=== PATIENT | female | born 1965 | race Caucasian/White ===

== ENCOUNTER → 2018-04-05 13:24 | Outpatient (CLI) | payer MEDICARE, MEDICAID, SELFPAY ==
--- NOTE | 2018-04-05 13:45 | MRI_ITS ---
STUDY: MRI BRAIN AND INTERNAL AUDITORY CANALS WITH AND WITHOUT CONTRAST REASON FOR EXAM: Female, 53 years old. 7 right sided ear deafness and is beginning of January. TECHNIQUE: Standardized multiplanar fat and water weighted pulse sequences were obtained. 7 ml of Gadavist contrast material was administered intravenously for the contrast portion of the examination. COMPARISON: None. FINDINGS: Normal bilateral temporal bones. Normal bilateral internal auditory canals. There is no demonstrated intracanalicular or cisternal vestibular schwannoma (acoustic neuroma). There is no enhancement of the bilateral VIIth or VIIIth cranial nerves. Normal bilateral cochlea, vestibules and semicircular canals. There is mild cerebral atrophy with widening of the extra-axial spaces and ventricular dilatation. There are a limited number of small white matter hyperintensities, distributed throughout the deep white matter tracts of the cerebral hemispheres, consistent with mild chronic white matter ischemic changes. There are apparent areas of restricted diffusion in the temporal lobes. This is likely artifactual rather than related to acute infarct. Normal bilateral basal ganglia. Normal thalami. There is no extra-axial fluid accumulation. Normal flow voids within the major intracranial circulation suggesting patency by spin echo criteria. Normal venous enhancement. There is no enhancing intra-axial or extra-axial abnormality. Normal sella turcica, pituitary gland, infundibular stalk, optic chiasm and hypothalamus. Normal tectal plate and pineal gland. There are chronic white matter ischemic changes of the jhonny. The midbrain and medulla are otherwise normal. Normal cerebellum. Normal basal cisterns. No demonstrated orbital abnormality, within the constraints of a routine brain study. Normal visualized paranasal sinuses. Normal calvarium and skull base. Normal visualized soft tissue structures. There are mild multilevel degenerative changes of the cervical spine. MRI/Brain W/WO Contrast IMPRESSION: 1. Involutional changes of the brain, as described above. 2. No MR evidence for cerebellopontine angle or internal auditory canal mass. Electronically Signed: Jennifer Thomson MD at 12:03 EDT , Service support ,
== END ==
PROVIDERS: Family Provider Internal Medicine; PCP Internal Medicine; Visit Provider Otolaryngology
DX: H91.21 Sudden idiopathic hearing loss, right ear (principal)
CPT/HCPCS: 70553; A9585

== ENCOUNTER → 2018-08-21 13:32 | Outpatient (CLI) | payer MEDICARE, MEDICAID, SELFPAY ==
[2018-08-14 14:21] VITALS: BMI 28.0
--- NOTE | 2018-08-21 13:35 | VDUE_ITS ---
Reason For Study: pre op Right Arm Left Arm Right cephalic vein is compressible. Left basilic vein is compressible. Right Cephalic Vein at the shoulder Basilic vein at origin measures .204 x .224 measures .125 x .117 cm. cm. Right Cephalic Vein mid bicep measures .113 Basilic vein at bicep measures .239 x .229 x .108 cm. cm. Right Cephalic Vein above antecub Basilic vein below antecub measures .190 measures .116 x .125 cm. x .189 cm. Right Cephalic Vein below antecub Basilic vein in the forearm measures .239 measures .187 x .191 cm. x .224 cm. Right Cephalic Vein in the forearm Basilic vein at the wrist measures .124 measures .208 x .208 cm. x .115 cm. Right Cephalic Vein at the wrist Brachial Artery measures .298 x .318 cm measures .104 x .092 cm. Brachial Artery 230/91.3 cm/s Right basilic vein is compressible. Radial Artery measures .313 x .305 cm Right Basilic Vein at the origin Radial Artery 282/141 cm/s measures .154 x .15 cm. Radial measurements taken at mid/distal Right Basilic Vein above antecub forearm. measures .149 x .134 cm. Right Basilic Vein below antecub measures .124 x .114 cm. Right Basilic Vein in the forearm measures .124 x .131 cm. Right Basilic Vein at the wrist measures .080 x .065 cm. Brachial Artery measures .328 x .341 cm. Brachial Artery 92.3 cm/s. Radial Artery measures .137 x .118 cm Radial Artery 103 cm/s. Interpretation Summary Diminutive right upper extremity cephalic and basilic veins Very borderline small left upper arm basilic vein. Diminutive right upper arm basilic vein. Adequate bilateral brachial arteries. Ordering Physician: Ruben Hu Performed By: Joseph Almonte, RVT ?
--- NOTE | 2018-08-21 13:35 | AVDS_ITS ---
Reason For Study: mechanical complication LEFT Radial artery at the wrist is diminutive in size with bright echoes noted. Inflow 135/60.2 cm/s Inflow 97.9 cc/min Prox Anast 477/221 cm/s Prox anast 410 cc/min Prox Graft 254/102 cm/s Prox Graft 364 cc/min Mid Graft 138/64.4 cm/s Mid Graft 570 cc/min Distal Graft at antecibital space 93.0/41.9 cm/s Distal Graft at antecubital space 447 cc/min Cephalic V in the upper are is diminutive in size with minimal flow. Fistula appears to connect to the brachial V. Brachial V 124/72.7 cm/s Brachial V 516 cc/min. Interpretation Summary Poor volume flow inflow left radial artery Low volume flow proximal fistula 364cm/sec Adequate mid graft flow 570 cc/min Diminutive left upper arm cephalic vein Outflow in the upper arm seeminly via the brachial vein Ordering Physician: Ruben Hu Performed By: Joseph Almonte, RVT
--- OUTSIDE RECORDS SUMMARY | 2018-11-23 00:39 | XMS RPT_ITS ---
:1965 Author Organization OHIP Support Name Relationship Address Phone D Unavailable Unavailable Unavailable LAWRENCE DANTE Unavailable [address] + [place] [address] D Unavailable Unavailable Unavailable LAWRENCEBOLIVAR MINORALD Unavailable [address] + [place] [address] D Unavailable Unavailable Unavailable LAWRENCE DANTE Unavailable [address] + [place] [address] D Unavailable Unavailable Unavailable LAWRENCE, DANTE Unavailable [address] + [place] [address] D Unavailable Unavailable Unavailable LAWRENCE, DANTE Unavailable [address] + [place] [address] BOLIVAR BRAVOALD Unavailable [address] + [id number] [place] [address] UE Unavailable Unavailable Unavailable REN BRAVOE Unavailable [address] + [place] [address] EUGENE BRAVO Unavailable [address] + [address] [place] [address] BOLIVAR BRAVOALD Unavailable [address] [place] [address] NOT GIVEN Unavailable Unavailable Unavailable EUGENE BRAVO Unavailable [address] + [address] [place] [address] BOLIVAR BRAVOALD Unavailable [address] [place] [place] [address] NOT GIVEN Unavailable Unavailable Unavailable REN BRAVOE Unavailable [address] + [place] [address] JULIENNE BRAVO Unavailable [address] + [place] [address] EUGENE BRAVO Unavailable [address] + [address] [place] [address] DANTE BRAVO Unavailable [address] [place] [place] [address] NOT GIVEN Unavailable Unavailable Unavailable REN BRAVOE Unavailable [address] + [place] [address] DANTE BRAVO Unavailable [address] + [place] [address] UE Unavailable Unavailable Unavailable REN BRAVOE Unavailable [address] + [place] [address] REN BRAVOE Unavailable [address] + [place] [address] LAWRENCE EUGENE Unavailable [address] + [address] [place] [address] DANTE BRAVO Unavailable [address] [place] [place] [address] NOT GIVEN Unavailable Unavailable Unavailable LAWRENCE EUGENE Unavailable [address] + [address] [place] [address] DANTE BRAVO Unavailable [address] [place] [place] [address] NOT GIVEN Unavailable Unavailable Unavailable DANTE BRAVO Unavailable [address] + [place] [address] LAWRENCE, [place] Unavailable Unavailable + DANTE BRAVO Unavailable [address] + [place] [address] LAWRENCE, [place] Unavailable Unavailable + JULIENNE BRAVO Unavailable [address] + [place] [address] REN BRAVOE Unavailable [address] + [place] [address] BOLIVAR BRAVOALD Unavailable [address] + [place] [address] LAWRENCEBOLIVAR MINORALD Unavailable [address] + [place] [address] REN BRAVOE Unavailable [address] + [place] [address] Care Team Providers Name Role Phone IRENE, HÉCTOR Ramey Attending Unavailable PASQUALE VILLANUEVA, ROE Attending Unavailable PHYSICIAN, NONE Primary Care Unavailable BROOKS RICO DO Consulting Unavailable PASQUALE VILLANUEVA, ROE Attending Unavailable PHYSICIAN, NONE Primary Care Unavailable ROE GIORDANO MD Attending Unavailable Lane Kirby Attending Unavailable Lane Kirby Referring Unavailable Denny, Maldonado Primary Care Unavailable Cebul, Ruben Attending Unavailable Denny, Maldonado Referring Unavailable Cebul, Ruben Attending Unavailable Cebul, Ruben Referring Unavailable Denny, Maldonado Primary Care Unavailable Cebul, Ruben Attending Unavailable Cebul, Ruben Referring Unavailable Denny, Maldonado Primary Care Unavailable Cebul, Ruben Consulting Unavailable Cebul, Ruben Attending Unavailable Denny, Maldonado Referring Unavailable Cebul, Ruben Attending Unavailable Cebul, Ruben Referring Unavailable Denny, Maldonado Primary Care Unavailable Cebul, Ruben Attending Unavailable Cebul, Ruben Referring Unavailable Denny, Maldonado Primary Care Unavailable Cebul, Ruben Consulting Unavailable OLDER, IFEOMA (CONE WORKER) Referring Unavailable DENNY, SHARRON Attending Unavailable DENNY, SHARRON Attending Unavailable DENNY, SHARRON Attending Unavailable DENNY, SHARRON Referring Unavailable OLDER, IFEOMA (CONE WORKER) Referring Unavailable DENNY, SHARRON Referring Unavailable DENNY, SHARRON Attending Unavailable OLDER, IFEOMA ([facility]) Attending Unavailable DENNY, SHARRON Referring Unavailable OLDER, IFEOMA ([facility]) Attending Unavailable PASQUALE, MANAL H Referring Unavailable JAKOB SAMUEL MD Admitting Unavailable JAKOB SAMUEL MD Attending Unavailable JAKOB SAMUEL MD Primary Care Unavailable DENNY, SHARRON Consulting Unavailable PROVIDER, UNKNOWN Consulting Unavailable YOMAIRA MULLINS Admitting Unavailable YOMAIRA MULLINS Attending Unavailable YOMAIRA MULLINS Primary Care Unavailable DENNY, SHARRON Consulting Unavailable PROVIDER, UNKNOWN Consulting Unavailable ARTIE DOUGLAS Admitting Unavailable ARTIE DOUGLAS Attending Unavailable ARTIE DOUGLAS Primary Care Unavailable DENNY, SHARRON Consulting Unavailable DENNY, SHARRON Referring Unavailable PROVIDER, UNKNOWN Consulting Unavailable KADE DE LA TORRE DO Admitting Unavailable KADE DE LA TORRE DO Attending Unavailable DENNY, SHARRON Referring Unavailable KADE DE LA TORRE DO Primary Care Unavailable EDUIN, SHARRON Consulting Unavailable PROVIDER, UNKNOWN Consulting Unavailable ELIGIO, DR TONI Curry Admitting Unavailable ELIGIO, DR TONI Curry Attending Unavailable DENNY, MALDONADO Freeman Referring Unavailable DEL VALLE, DR TONI Curry Primary Care Unavailable EDUIN, MALDONADO Freeman Consulting Unavailable PROVIDER, UNKNOWN Consulting Unavailable Irene, Héctor T Attending Unavailable Eduin, Sharron. Primary Care Unavailable Irene, Héctor T Attending Unavailable Irene, Héctor T Attending Unavailable Asfoura, Jehad Y Admitting Unavailable Asfoura, Jehad Y Attending Unavailable Eduin, Sharron. Primary Care Unavailable Irene, Héctor T Attending Unavailable Eduin, Sharron. Primary Care Unavailable Irene, Héctor T Attending Unavailable Eduin, Sharron. Primary Care Unavailable Irene, Héctor T Attending Unavailable Joanne, Anderson M Admitting Unavailable Joanne, Anderson M Attending Unavailable Eduin, Sharron. Primary Care Unavailable Irene, Héctor T Attending Unavailable Maldonado Denny H. Primary Care Unavailable PROBLEMS PROBLEMS DATE TYPE CONDITION / CODE ATTENDING STATUS SOURCE 09/20/2018 Unknown G89.18 - Other acute Ruben Hu postprocedural pain Community / G89.18(ICD-10) Hospital Repository 08/23/2018 Unknown T82.898D - Other Ruben Hu specified Community complication of Hospital vascular prosthetic Repository devices, implants and grafts, subsequent encounter / T82.898D(ICD-10) 08/21/2018 Unknown Z01.818 - Encounter Ruben Hu for other Community preprocedural Hospital examination / Repository Z01.818(ICD-10) 08/21/2018 Unknown T82.590A - Other Ruben Hu mechanical Community complication of Hospital surgically created Repository arteriovenous fistula, initial encounter / T82.590A(ICD-10) 02/10/2018 Active Other hyperlipidemia NA Active [facility] / E78.4(ICD-10) Clinic Main [place] Repository 02/10/2018 Active Hypothyroidism, NA Active [facility] unspecified / Clinic Main E03.9(ICD-10) [place] Repository 01/14/2018 Admitting Acute kidney LATOUF, BUTROS Active [facility] Diagnosis failure, unspecified [facility] / N179(ICD-10) Hospital Repository 01/14/2018 Principle Acute kidney LATOUF, BUTROS Active [facility] Diagnosis failure, unspecified [facility] / N179(ICD-10) Hospital Repository 01/14/2018 Secondary Other hypertrophic LATOUF, 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 / [facility] I422(ICD-10) Hospital Repository 01/09/2018 Active Hyperkalemia / NA Active [place] E87.5(ICD-10) [facility] Main [place] Repository 11/27/2017 Admitting Unknown / IRENEHÉCTOR Active [facility] diagnosis UNK(Unknown) T Hospital Repository 11/06/2017 Active Encounter for NA Active [place] screening mammogram Clinic Main for malignant [place] neoplasm of breast / Repository Z12.31(ICD-10) 10/18/2017 Active Unknown / EDUIN Active [place] UNK(Unknown) MALDONADO [facility] Main [place] Repository 07/07/2015 Active Type 2 diabetes NA Active [place] mellitus with Clinic Main diabetic nephropathy [place] / E11.21(ICD-10) Repository 07/07/2015 Active Type 2 diabetes NA Active [place] mellitus with Clinic Main hyperglycemia / [place] E11.65(ICD-10) Repository 10/16/2017 Active 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 Clinic Main therapy / [place] Z79.899(ICD-10) Repository PROCEDURES PROCEDURES No Procedure Records FoundRESULTS RESULTS DISCHARGE INSTRUCTION Observed: 09/20/2018 Status: F Source: [place] 3:39 PM [facility] REPOSITORY [facility] Medical Records Department [address] [place] [address] Instructions for Home/Discharge Instructions 09/20/18 1237 MR#: [id number] Acct: [id number] Name: SANDY BRAVO Rep #: [id number] : 1965 53 From: Ruben Hu MD PCP: Maldonado Denny MD Status: DEP [facility] Discharge Diet: Renal Diet Discharge Activity: May Not Drive - for 2-3 days or while taking narcotic pain medications., May Shower, May Take a Tub Bath - in 5 days. Lifting Restrictions: 5 pounds Keep extremity elevated above heart level: - - Keep arm elevated above the heart level for 3 days. Additional Activity Instructions:: Exercise hand vigorously with a stress ball. Call your doctor if your incision/area has: Continuous Slow Oozing, Sudden Increased Bleeding - apply pressure and call your doctor., Increased Pain/ Swelling, Increased Redness, Foul Smelling Discharge Call your doctor if you observe: Fever of 101 or Higher Suture Line Care: Avoid Pulling/Pushing, Avoid Pinching/Bending Cleanse incision/area with: Keep Dressing Clean AND Dry Additional Dressing/Incision Instructions:: Change or remove dressing in two days. May protect with a gauze bandaid. Allergies/Adverse Reactions: Allergies codeine Allergy (Unknown, Verified 09/13/18 08:59) Unknown latex Allergy (Unknown, Verified 09/13/18 08:59) Unknown Penicillins Allergy (Unknown, Verified 09/13/18 08:59) Unknown Medications to take at Discharge amlodipine 10 mg tablet 10 mg PO DAILY 08/14/18 aspirin 81 mg tablet,delayed release 81 mg PO DAILY 08/14/18 atorvastatin 40 mg tablet 40 mg PO QHS 08/14/18 clonidine HCl 0.3 mg tablet 0.3 mg PO BID 08/14/18 insulin aspart U- 100 100 unit/mL subcutaneous pen 8 unit SC TID 08/14/18 levothyroxine 112 mcg capsule 112 mcg PO DAILY 08/14/18 lisinopril 20 mg tablet 20 mg PO BID tab 08/14/18 metoprolol tartrate 50 mg tablet 50 mg PO BID 08/14/18 vitamin B complex-vitamin C-folic acid 0.8 mg tablet 1 tab PO DAILY 08/14/18 Insulin Detemir [Levemir FlexPen] 50 units SC QHS 09/13/18 Hydrocodone Bitart/Apap 5-325 [[place] 5MG-325MG] 1 tablet PO Q6H PRN PRN 3 Days #8 tablet 09/20/18 The following prescriptions were given: Hydrocodone Bitart/Apap 5-325 [[place] 5MG-325MG] 1 tablet PO Q6H PRN PRN 3 Days #8 tablet PRN Reason: Pain Primary Care Physician: Maldonado Denny MD [Primary Care Provider] - Test Results: Test results from this visit will be discussed in further detail at your follow-up appointment, if applicable. Please Follow Up With: Ruben Hu MD - [phone] When: Call to make an appointment for suture removal and follow up in 3 weeks. 09/20/18 1539 <Electronically signed by Ruben Hu MD> Date Ruben Hu MD CC: Maldonado Denny MD Signed OPERATIVE REPORT Observed: 09/20/2018 Status: F Source: [place] 12:43 PM [facility] REPOSITORY [facility] Medical Records Department [address] [place] [address] Operative Report 09/20/18 1239 MR#: [id number] Acct: [id number] Name: SANDY BRAVO Rep #: [id number] : 1965 53 From: Ruben Hu MD PCP: Maldonado Denny MD Status: REG [facility] Y Location: [place] [address] Problem List (1) Problem with dialysis access Status: Acute Qualifiers: Report of Operation Date of Procedure: 09/20/18 Pre-Operative Diagnosis: Failure to mature left forearm radiocephalic arteriovenous hemodialysis fistula Post-Operative Diagnosis: Same Surgery/Procedure Performed:: Left upper extremity stage I brachiobasilic arteriovenous hemodialysis fistula creation Description of Surgical Findings:: Timeout and informed consent was obtained. 53-year-old female was taken to the operating room. She was placed on the table. The left extremity sterilely prepped and draped. 1% lidocaine mixed 50-50 with 0.5% Marcaine was used as local anesthetic. Total 10 cc was used. Ultrasound was used to identify the very diminutive basilic vein of the left upper arm. Local was instilled. Slightly oblique incision was created tedious sharp and blunt dissection was used to identify the basilic vein. It was circumferentially dissected free and dissected free distally. Side branches were secured with hemoclips. Then sharp and blunt dissection was used to identify the brachial artery even this dissection was tedious. Were needed hemostasis was obtained with hemoclips and were needed interrupted 6-0 Prolene sutures. Having completely identify the basilic vein and the brachial artery the patient received 7000 units of heparin. After adequate Strickling time peripheral vascular clamps were then placed on the brachial artery. 11 blade was used to make an arteriotomy. The vein was spatulated and a end-to-side anastomosis was created with running 7-0 Prolene. A couple repair sutures of 7-0 Prolene was required. There appeared to be good flow within the newly created fistula. Doppler was used to confirm audible unobstructed flow. Hemostasis was intact. The patient received 10 mg of protamine IV. It is of note that all of the dissection and the anastomosis actually was quite tedious due to the borderline diminutive size of the basilic vein. The wound was then closed in layers with a deep layer of interrupted 3-0 Vicryl and then a running 4-0 Monocryl. Steri-Strips Telfa tape dressings applied. Sponge and instrument and needle counts were reported the surgeon correct. Blood loss was minimal. She had a 3+ left radial pulse at the completion no apparent complication she tolerated procedure well and was taken to the recovery area in satisfactory condition. Specimens none. Drains none. Blood loss minimal. Ruben Hu M.D., F.A.C.S. Type of Anesthesia:: Local MAC Anesthesiologist: Kaveh Marshall 09/20/18 1243 <Electronically signed by Ruben Hu MD> Date Ruben Hu MD CC: Ruben Hu MD; Maldonado Denny MD Signed BEDSIDE GLUCOSE Collected: 09/20/2018 Status: F Source: [place] 10:18 AM [facility] REPOSITORY TYPE CODE TESTS RESULT OUT OF REFERENCE UNITS RANGE LAB L501.080 70-110 mg/dL High BEDSIDE GLU 227 Result Comment: MANAGEMENT OF PATIENT CARE PER NURSING PROTOCOL Performed By: #### L501.080 #### [facility] Point of Care [address] [place] [address] 12 LEAD ELECTROCARDIOGRAM Observed: 09/19/2018 Status: F Source: [place] 1:55 PM [facility] REPOSITORY [facility] Cardiovascular Services [address] [place] [address] 12 Lead EKG 09/18/18 1352 MR#: [id number] Acct: [id number] Name: SANDY BRAVO Rep #: [id number] : 1965 53 From: Donavon Braga MD Attending Dr: Ruben Hu MD Status: PRE SD Ordering Dr: Ruben Hu MD Date: 09/18/18 Location: [facility] Sex: F C Admitted: Test Reason : PREOP Blood Pressure : / mmHG Vent. Rate : 061 BPM Atrial Rate : 061 BPM P-R Int : 186 ms QRS Dur : 100 ms QT Int : 460 ms P-R-T Axes : 014 -40 112 degrees QTc Int : 463 ms Normal sinus rhythm Left axis deviation Left ventricular hypertrophy with repolarization abnormality Abnormal ECG Confirmed by KATIUSKA VILLANUEVA, DONAVON ([id number]), editorial intern ABRIL LAM ([id number]) on 09/19/2018 1:55:01 PM Referred By: Ruben Hu Confirmed By:DONAVON BRAGA MD 09/19/18 1355 Date Donavon Braga MD CC: Ruben Hu MD; Maldonado Denny MD Signed CBC-COMPLETE BLOOD CNT Collected: 09/18/2018 Status: F Source: [place] NO DIFF 1:21 PM [facility] REPOSITORY TYPE CODE TESTS RESULT OUT OF RANGE REFERENCE UNITS LAB L100.1000 4.4-11.0 K/mm3 Normal WBC 5.9 LAB L100.1200 4.2-5.4 M/mm3 Low RBC 4.06 LAB L100.1300 12.0-15.0 g/dl Normal HGB 12.2 LAB L100.1400 37-47 % Normal HCT 38.7 LAB L100.1500 81-99 fL Normal MCV 95.3 LAB L100.1600 27.0-32.0 pg Normal MCH 30.0 LAB L100.1700 32-36 g/gl Low MCHC 31.5 LAB L100.1810 11.6-14.6 % Normal RDW CV 13.7 LAB L100.1820 35.1-43.9 fl High RDW SD 46.8 LAB L100.1900 150-450 K/mm3 Normal PLT 201 LAB L100.2000 6.2-12.0 fl Normal MPV 8.9 Performed By: #### L100.0500 #### [facility] [address] [place], [address] BASIC METABOLIC Collected: 09/18/2018 Status: F Source: [place] PROFILE (BMP) 1:21 PM [facility] REPOSITORY TYPE CODE TESTS RESULT OUT OF RANGE REFERENCE UNITS LAB L501.0100 74-106 mg/dL High GLU 205 Result Comment: Glucose result greater than or equal to 200 mg/dL suggests DIABETES MELLITUS per A.D.A. criteria. Please note revised GLUCOSE reference range effective 2017. LAB L501.1000 7-18 mg/dL High BUN 40 LAB L501.1100 0.55-1.02 mg/dL High CREAT,SERUM 5.85 Result Comment: The validity of the calculated GFR AND GFRAA in patients over 70 years has not been determined. Clinical correlation is essential. LAB L501.1110 >60 mL/min Low EST GFR 8 Result Comment: Non- GFR Calc LAB L501.1115 >60 mL/min Low EST GFR - AA 10 Result Comment: GFR Calc LAB L501.1300 10-20 RATIO Low BUN/CRE 6.8 LAB L501.2200 8.5-10.1 mg/dL Normal CA 9.1 LAB L501.5300 136-145 mmol/L Normal NA 139 LAB L501.5600 3.5-5.1 mmol/L Normal K 5.0 LAB L501.5900 98-107 mmol/L Normal CL 106 LAB L501.6100 21.0-32.0 mmol/L Normal CO2 22.0 LAB L501.6200 5-15 Normal GAP 11 Performed By: #### L500.2500 #### [facility] [address] [place], [address] SURGERY VISIT REPORT Observed: 08/23/2018 Status: F Source: [place] 10:40 AM [facility] REPOSITORY [facility] [address] [place] [address] OFFICE VISIT Date of Service: 08/23/18 MR#: [id number] Acct: [id number] Name: SANDY BRAVO Rep #: [id number] : 1965 Provider: Ruben Hu MD Age/Sex: 53/F Location: [facility] Status: Signed Intake Vital Signs08/23/18 Body Mass Index (BMI) 28.0 Intake Visit Reasons: discuss surgery Chief Complaint: discuss surgery/ vein mapping Chute Greaser Required: No Is patient in pain?: No Allergies codeine Allergy (Unknown, Verified 08/14/18 14:25) Unknown latex Allergy (Unknown, Verified 08/14/18 14:25) Unknown Penicillins Allergy (Unknown, Verified 08/14/18 14:25) Unknown Medications amlodipine 10 mg tablet 10 mg PO DAILY 08/14/18 [History Confirmed 08/14/18] aspirin 81 mg tablet,delayed release 81 mg PO DAILY 08/14/18 [History Confirmed 08/14/18] atorvastatin 40 mg tablet 40 mg PO QHS 08/14/18 [History Confirmed 08/14/18] clonidine HCl 0.3 mg tablet 0.3 mg PO BID 08/14/18 [History Confirmed 08/14/18] insulin aspart U- 100 100 unit/mL subcutaneous pen 10 unit SC TID 08/14/18 [History Confirmed 08/14/18] insulin degludec (U-100) 100 unit/mL (3 mL) subcutaneous pen 20 unit SC DAILY 08/14/18 [History Confirmed 08/14/18] levothyroxine 112 mcg capsule 112 mcg PO DAILY 08/14/18 [History Confirmed 08/14/18] lisinopril 20 mg tablet 20 mg PO BID tab 08/14/18 [History Confirmed 08/14/18] metoprolol tartrate 50 mg tablet 50 mg PO BID 08/14/18 [History Confirmed 08/14/18] vitamin B complex-vitamin C-folic acid 0.8 mg tablet 1 tab PO DAILY 08/14/18 [History Confirmed 08/14/18] Is last menstrual period known: No Post menopausal: Yes Patient : No PFSH Medical History Problem with dialysis access (Acute) Hemorrhoids (Acute) Acid reflux (Acute) Constipation (Acute) Anxiety (Acute) Depression (Acute) Hypertension (Chronic) Heart disease (Acute) Diabetes (Acute) Thyroid disease (Acute) Surgical History Hx of bilateral breast reduction surgery (Acute) History of partial hysterectomy (Acute) History of bowel resection (Acute) Hx of appendectomy (Acute) Hx of cholecystectomy (Acute) Family History Brother Kidney disease Mother Cancer lung cancer Father Colon cancer Social History Smoking Status: Current every day smoker alcohol intake: never substance use type: does not use caffeine: Yes what type of physical activity do you participate in: none frequency: does not exercise HPI HPI HPI: SANDY BRAVO, is a 53 F who presents to the office today for surgical follow-up regarding a non-maturing left forearm fistula which is been present for 1 year. The patient has had tunneled hemodialysis catheters all that time. My previous office notes from her recent visit are below. I have obtained vein mapping of her left upper extremity and a fistula inspection. Indeed I believe that there are 2 problems with her left forearm fistula 1 based upon radial artery inflow and the other based upon outflow at the antecubital space deep into the brachial veins rather than continuous through the superficial system. There appears to be very small upper arm cephalic vein on the left with no continuation of flow from the forearm [facility] Cardiovascular Services [address] [place] [address] AV Fistula/Dialysis Graft Scan 08/21/18 1344 MR#: [id number] Name: SANDY BRAVO #:[id number] : 1965 53From: Ruben Hu MD Attending Dr: Mayte VILLANUEVA,RobertStatus: REG CLI Ordering Dr: Ruben Hu MDDate: 08/21/18 Location:CVSSex:FC Admitted: Reason For Study: mechanical complication LEFT Radial artery at the wrist is diminutive in size with bright echoes noted. Inflow 135/60.2 cm/s Inflow 97.9 cc/min Prox Anast 477/221 cm/s Prox anast 410 cc/min Prox Graft 254/102 cm/s Prox Graft 364 cc/min Mid Graft 138/64.4 cm/s Mid Graft 570 cc/min Distal Graft at antecibital space 93.0/41.9 cm/s Distal Graft at antecubital space 447 cc/min Cephalic V in the upper are is diminutive in size with minimal flow. Fistula appears to connect to the brachial V. Brachial V 124/72.7 cm/s Brachial V 516 cc/min. Interpretation Summary Poor volume flow inflow left radial artery Low volume flow proximal fistula 364cm/sec Adequate mid graft flow 570 cc/min Diminutive left upper arm cephalic vein Outflow in the upper arm seeminly via the brachial vein Ordering Physician: Ruben Hu Performed By: Joseph Almonte T 08/21/18 1750 Date Ruben Hu MD [facility] Cardiovascular Services [address] [place] [address] Saphenous Vein Mapping, Bil 08/21/18 1413 MR#: [id number] Name: SANDY BRAVO #:[id number] : 1965 53From: Ruben Hu MD Attending Dr: Thais [facility]: Ruben Hu MDDate: 08/21/18 Location:CVSSex:FC Admitted: Reason For Study: pre op Right Arm Left Arm Right cephalic vein is compressible. Left basilic vein is compressible. Right Cephalic Vein at the shoulder Basilic vein at origin measures .204 x .224 measures .125 x .117 cm. cm. Right Cephalic Vein mid bicep measures .113 Basilic vein at bicep measures .239 x .229 x .108 cm. cm. Right Cephalic Vein above antecub Basilic vein below antecub measures .190 measures .116 x .125 cm. x .189 cm. Right Cephalic Vein below antecub Basilic vein in the forearm measures .239 measures .187 x .191 cm. x .224 cm. Right Cephalic Vein in the forearm Basilic vein at the wrist measures .124 measures .208 x .208 cm. x .115 cm. Right Cephalic Vein at the wrist Brachial Artery measures .298 x .318 cm measures .104 x .092 cm. Brachial Artery 230/91.3 cm/s Right basilic vein is compressible. Radial Artery measures .313 x .305 cm Right Basilic Vein at the origin Radial Artery 282/141 cm/s measures .154 x .15 cm. Radial measurements taken at mid/distal Right Basilic Vein above antecub forearm. measures .149 x .134 cm. Right Basilic Vein below antecub measures .124 x .114 cm. Right Basilic Vein in the forearm measures .124 x .131 cm. Right Basilic Vein at the wrist measures .080 x .065 cm. Brachial Artery measures .328 x .341 cm. Brachial Artery 92.3 cm/s. Radial Artery measures .137 x .118 cm Radial Artery 103 cm/s. Interpretation Summary Diminutive right upper extremity cephalic and basilic veins Very borderline small left upper arm basilic vein. Diminutive right upper arm basilic vein. Adequate bilateral brachial arteries. Ordering Physician: Ruben Hu Performed By: Joseph Almonte RVT ? 08/21/18 174 Date Ruben Hu MD CC: Ruben Hu MD; Maldonado Denny MD MR#:[id number]:[id number] Name: SANDY BRAVO #:[id number] : 1965 Provider:Ruben Hu MD Age/Sex: 53/F Location:[facility] Status:Signed Intake Vital Signs 08/14/18 Height 5 ft 3 in 08/14/18 Weight: 158 lb 08/14/18 Body Mass Index (BMI) 28.0 08/14/18 Blood Pressure 146/74 H 08/14/18 Blood Pressure Location Rt brachial 08/14/18 Blood Pressure Position Sitting 08/14/18 Respiratory Rate 14 08/14/18 Pulse Rate 74 08/14/18 Pulse Source Monitor 08/14/18 Temperature 98.3 F 08/14/18 Temperature Source Oral 08/14/18 Pulse Ox 100 08/14/18 Oxygen Delivery Method room air Intake Visit Reasons: 2nd Opinion Fistula Chute Greaser Required: No Is patient in pain?: No Allergies codeine Allergy (Unknown, Verified 08/14/18 14:25) Unknown latex Allergy (Unknown, Verified 08/14/18 14:25) Unknown Penicillins Allergy (Unknown, Verified 08/14/18 14:25) Unknown Medications amlodipine 10 mg tablet 10 mg PO DAILY 08/14/18 [History Confirmed 08/14/18] aspirin 81 mg tablet,delayed release 81 mg PO DAILY 08/14/18 [History Confirmed 08/14/18] atorvastatin 40 mg tablet 40 mg PO QHS 08/14/18 [History Confirmed 08/14/18] clonidine HCl 0.3 mg tablet 0.3 mg PO BID 08/14/18 [History Confirmed 08/14/18] insulin aspart U- 100 100 unit/mL subcutaneous pen 10 unit SC TID 08/14/18 [History Confirmed 08/14/18] insulin degludec (U-100) 100 unit/mL (3 mL) subcutaneous pen 20 unit SC DAILY 08/14/18 [History Confirmed 08/14/18] levothyroxine 112 mcg capsule 112 mcg PO DAILY 08/14/18 [History Confirmed 08/14/18] lisinopril 20 mg tablet 20 mg PO BID tab 08/14/18 [History Confirmed 08/14/18] metoprolol tartrate 50 mg tablet 50 mg PO BID 08/14/18 [History Confirmed 08/14/18] vitamin B complex-vitamin C-folic acid 0.8 mg tablet 1 tab PO DAILY 08/14/18 [History Confirmed 08/14/18] PFSH Medical History Hemorrhoids (Acute) Acid reflux (Acute) Constipation (Acute) Anxiety (Acute) Depression (Acute) Hypertension (Chronic) Heart disease (Acute) Diabetes (Acute) Thyroid disease (Acute) Surgical History Hx of bilateral breast reduction surgery (Acute) History of partial hysterectomy (Acute) History of bowel resection (Acute) Hx of appendectomy (Acute) Hx of cholecystectomy (Acute) Family History Brother Kidney disease Mother Cancer lung cancer Father Colon cancer Social History Smoking Status: Current every day smoker alcohol intake: never substance use type: does not use caffeine: Yes what type of physical activity do you participate in: none frequency: does not exercise HPI HPI HPI: SANDY BRAVO, is a 53 F who presents to the office today for second opinion consultation regarding arteriovenous hemodialysis fistula access. Information that I have available was provided by the patient and her . Patient states that approximately 1 year ago she had a left forearm radial to cephalic arteriovenous fistula created by Dr. Corona. Apparently only on 2 occasions has an attempt been made to access it on both occasions it infiltrated. The patient states that she has had at least 5-6 fistulograms over that time period. She states that also she has had at least 3 different tunneled hemodialysis catheters. The most recent intervention note that I have is March 20, 2018. That discussed poor left radial arterial inflow with extensive angioplasty of the radial artery. The patient is right arm dominant. She states that she thinks are mostly intervention was 2-3 weeks ago. She was instructed at that point that it would require another 6 weeks prior to repeat attempt at use. It is because of this that the patient's sustainable design consultant Dr. Brand is referring for second opinion. ROS General General: Yes weight change; no appetite, fatigue, colon cancer, breast cancer or weakness HEENT HEENT: No difficulty swallowing, eye injury, eye surgery, swollen glands or hoarseness Endo Endocrine: Yes thyroid disease and diabetes mellitus; no thyroid cancer, Hair loss, heat intolerance or cold intolerance Neuro Neurologic: No weakness Exam Const General: cooperative, comfortable, no acute distress Nutritional Appearance: average body habitus Orientation: alert, awake HENMT Head: normal to inspection Eyes General: appearance normal, both eyes and all related structures Resp Effort AND Inspection: normal respiratory effort Auscultation: clear to auscultation bilaterally Cardio Rate: regular rate Rhythm: regular rhythm GI Palpation: soft, no hepatosplenomegaly Extrem Other: Left upper extremity: Left forearm radiocephalic arteriovenous fistula. There is a pulse and thrill and bruit. The strength of the pulses diminished. Inspection on ultrasound reveals 5 mm diameter. Upon inspecting with ultrasound to the antecubital crease there does not appear to be direct flow across the antecubital crease into the cephalic vein of the upper arm. There appears to be rather deep penetration toward the brachial vein. On further inspection the left upper arm basilic vein appears to be patent and compressible but not overly matured Psych Affect: normal affect Assessment AND Plan Plan I would think that atypical fistula would be matured and ready for utilization and less than 1 year. From patient report there is been multiple attempts to make the fistula functional in that have not succeeded. I have concerns that there is arterial inflow problem and there may also be a direct venous outflow problem. This point I recommending a duplex examination of the left forearm radiocephalic AV fistula. I am additionally recommending bilateral upper extremity vein mapping. On my brief ultrasound inspection I suspect that the upper arm cephalic vein is diminutive or occluded. The patient might be a candidate for a stage I left upper extremity brachial to basilic AV fistula with subsequent plans for transposition. At least based upon historical evidence it would appear that the patient does not have adequate arterial inflow. It is of additional note that patient is a type I diabetic. She apparently has glucose out of control with glucose values running 400-500's. She states that she is supposed to again see her primary care physician Dr. Maldonado Denny in the near future. The patient states that her glucoses have been very difficult to control. I do not have access to her current hemoglobin A1c. I will copy Dr. Maldonado Denny on this note. Patient may require specialty endocrine care if her hemoglobin A1c is 10 or greater. I very much appreciate the kind opportunity of assisting with her surgical care. I will make further surgical recommendations based upon the duplex imaging exams which we will expedite. CC: Dr. Lane Nogueira and Dr. Maldonado Hu M.D., F.A.C.S. Orders Orders: AV Fistula/Dialysis Graft Scan Today T82.590A Saphenous Vein Mapping, Bilat Today Z01.818 Coding Level of Care Code Comprehensive,moderate 08/14/18 1624<Electronically signed by Ruben Hu MD> Date Ruben Hu MD Assessment AND Plan Problems 1. Problem with dialysis access, subsequent encounter T82.898D Plan I do not feel that I have further alternatives for his current fistula. Aerobic attempts have been made to help it mature over the past year I propose for her a staged left upper extremity brachial to basilic arteriovenous fistula. I propose we schedule her stage I left upper extremity brachiobasilic AV fistula creation. The patient and are aware that subsequent transposition will be required. She is aware of the technique, benefits, risks, alternatives. We will schedule and proceed at her discretion. Ruben Hu M.D., F.A.C.S. Coding Level of Care Code Off vis,est,level 2 Diagnoses Problem with dialysis access, subsequent encounter T82.898D Encounter type: subsequent encounter 08/23/18 1040 <Electronically signed by Ruben Hu MD> Date Ruben Hu MD Cosigner Signature: Date (if applicable) CC: lane brand; Maldonado Denny MD AV FISTULA/DIALYSIS GRAFT Observed: 08/21/2018 Status: F Source: [place] SCAN 5:51 PM [facility] REPOSITORY [facility] Cardiovascular Services [address] [place] [address] AV Fistula/Dialysis Graft Scan 08/21/18 1344 MR#: [id number] Acct: [id number] Name: SANDY BRAVO Rep #: [id number] : 1965 53 From: Ruben Hu MD Attending Dr: Ruben Hu MD Status: REG CLI Ordering Dr: Ruben Hu MD Date: 08/21/18 Location: [facility] Sex: F C Admitted: Reason For Study: mechanical complication LEFT Radial artery at the wrist is diminutive in size with bright echoes noted. Inflow 135/60.2 cm/s Inflow 97.9 cc/min Prox Anast 477/221 cm/s Prox anast 410 cc/min Prox Graft 254/102 cm/s Prox Graft 364 cc/min Mid Graft 138/64.4 cm/s Mid Graft 570 cc/min Distal Graft at antecibital space 93.0/41.9 cm/s Distal Graft at antecubital space 447 cc/min Cephalic V in the upper are is diminutive in size with minimal flow. Fistula appears to connect to the brachial V. Brachial V 124/72.7 cm/s Brachial V 516 cc/min. Interpretation Summary Poor volume flow inflow left radial artery Low volume flow proximal fistula 364cm/sec Adequate mid graft flow 570 cc/min Diminutive left upper arm cephalic vein Outflow in the upper arm seeminly via the brachial vein Ordering Physician: Ruben Hu Performed By: Joseph Almonte RVT 08/21/18 175 Date Ruben Hu MD CC: Ruben Hu MD; Maldonado Denny MD Date Dictated: 08/21/18 1344 Date Transcribed: 08/21/181749 Fiber Optic Splicer: Signed VENOUS DUPLEX UPPER Observed: 08/21/2018 Status: F Source: [place] EXTREMITY 5:45 PM [facility] REPOSITORY [facility] Cardiovascular Services [address] [place] [address] Saphenous Vein Mapping, Bilat 08/21/18 1413 MR#: [id number] Acct: [id number] Name: SANDY BRAVO Rep #: [id number] : 1965 53 From: Ruben Hu MD Attending Dr: Ruben Hu MD Status: REG CLI Ordering Dr: Ruben Hu MD Date: 08/21/18 Location: [facility] Sex: F C Admitted: Reason For Study: pre op Right Arm Left Arm Right cephalic vein is compressible. Left basilic vein is compressible. Right Cephalic Vein at the shoulder Basilic vein at origin measures .204 x .224 measures .125 x .117 cm. cm. Right Cephalic Vein mid bicep measures .113 Basilic vein at bicep measures .239 x .229 x .108 cm. cm. Right Cephalic Vein above antecub Basilic vein below antecub measures .190 measures .116 x .125 cm. x .189 cm. Right Cephalic Vein below antecub Basilic vein in the forearm measures .239 measures .187 x .191 cm. x .224 cm. Right Cephalic Vein in the forearm Basilic vein at the wrist measures .124 measures .208 x .208 cm. x .115 cm. Right Cephalic Vein at the wrist Brachial Artery measures .298 x .318 cm measures .104 x .092 cm. Brachial Artery 230/91.3 cm/s Right basilic vein is compressible. Radial Artery measures .313 x .305 cm Right Basilic Vein at the origin Radial Artery 282/141 cm/s measures .154 x .15 cm. Radial measurements taken at mid/distal Right Basilic Vein above antecub forearm. measures .149 x .134 cm. Right Basilic Vein below antecub measures .124 x .114 cm. Right Basilic Vein in the forearm measures .124 x .131 cm. Right Basilic Vein at the wrist measures .080 x .065 cm. Brachial Artery measures .328 x .341 cm. Brachial Artery 92.3 cm/s. Radial Artery measures .137 x .118 cm Radial Artery 103 cm/s. Interpretation Summary Diminutive right upper extremity cephalic and basilic veins Very borderline small left upper arm basilic vein. Diminutive right upper arm basilic vein. Adequate bilateral brachial arteries. Ordering Physician: Ruben Hu Performed By: Joseph Almonte RVKaroline ? 08/21/184 Date Ruben Hu MD CC: Ruben Hu MD; Maldonado Denny MD Date Dictated: 08/21/18 1413 Date Transcribed: 08/21/181743 Fiber Optic Splicer: Signed PROGRESS Observed: 08/14/2018 Status: COMPLETED Source: [place] 9:45 PM [facility] REPOSITORY O ID: [id number] Author: Maldonado Denny Service: (none) Author Type: Physician Type: Progress Notes Filed: 08/14/2018 10:01 PM Note Text: This note was created using LaraPharmriter. Subjective Sandy Bravo was here for follow up. Diabetes was not controlled. She was taking her medications. However, Amara will no longer be on Formulary beginning the next month. Her hypertension and lipids were controlled. She continued on dialysis, but Dr. Hu was working on her fistula which was not functioning well. Dr. Hu was interested in her A1C, per his report received today. 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 atorvastatin (LIPITOR) 40 mg tablet Take 1 tablet by mouth daily at bedtime. blood sugar diagnostic (BLOOD GLUCOSE TEST) test strip Test blood sugar(s) 3 times daily. Dx: Type 2 DM - Uncontrolled E11.65 Insulin: Yes Blood-Glucose Meter (BLOOD GLUCOSE MONITORING) monitoring kit 1 Each three times daily. E11.65. On insulin. cloNIDine HCl (CATAPRES) 0.3 mg tablet Take 1 tablet by mouth twice daily. Morning dose postponed to 3pm for dialysis days: Mon, Mon, Monday.. insulin aspart U-100 (NOVOLOG U-100 INSULIN ASPART) 100 unit/mL soln Inject eight (8) units three times a day with meals insulin needles, DISPOSABLE, (PEN NEEDLE) 31 gauge x 5/16 ndle Use one needle per dose. one per day. Insulin Syringe-Needle U-100 (BD INSULIN SYRINGE ULTRA-FINE) 1 mL 29 gauge x 1/2 syrg Use twice daily as directed. isosorbide mononitrate ER (IMDUR) 30 mg 24 hr tablet Take 30 mg by mouth once daily. levothyroxine (SYNTHROID) 112 mcg tablet TAKE ONE TABLET BY MOUTH DAILY ON an EMPTY stomach FOR THYROID. lisinopril (ZESTRIL, PRINIVIL) 20 mg tablet TAKE ONE TABLET BY MOUTH TWICE DAILY metoprolol tartrate, short acting, (LOPRESSOR) 50 mg tablet Take 1 tablet by mouth twice daily. NEPHRO-SONDRA 0.8 mg tab Take 1 tablet by mouth once daily. nitroglycerin sublingual (NITROQUICK) 0.4 mg SL tablet Dissolve 0.4 mg under the tongue every 5 minutes as needed. sevelamer (RENAGEL) 800 mg tablet Take 1,600 mg by mouth three times daily with meals. calcium acetate (PHOSLO) 667 mg capsule Take 2 capsules by mouth three times daily with meals. insulin detemir U-100 (LEVEMIR FLEXTOUCH U-100 INSULN) 100 unit/mL (3 mL) inpn injection Inject 50 Units subcutaneously daily at bedtime. No current facility-administered medications for this visit. Review of Systems Constitutional: Negative. Respiratory: Negative. Cardiovascular: Negative. Gastrointestinal: Negative. Genitourinary: Negative. Objective BP 124/56 (BP Site: Right Arm, BP Position: Sitting, BP Cuff Size: Regular Adult) Pulse 64 Temp 36.1 ?C (97 ?F) (Left Tympanic) Resp 16 Wt 72.1 kg (159 lb) BMI 28.62 kg/m? Physical Exam Constitutional: No distress. Eyes: Conjunctivae are normal. No scleral icterus. Neck: No JVD present. Cardiovascular: Regular rhythm and normal heart sounds. Exam reveals no gallop and no friction rub. No murmur heard. Pulmonary/Chest: Breath sounds normal. She has no wheezes. She has no rales. Musculoskeletal: She exhibits no edema. Glucose meter data or log was reviewed. Range: 68-434. Average: 251. Patient was testing QID. Higher frequency of testing needed: yes. Reason: frequent hypoglycemia, medication adjustment, uncontrolled DM, labile blood sugars. Hemoglobin A1C (%) Date Value 02/10/2018 7.1 Hemoglobin A1C (POCT) (%) Date Value 08/14/2018 6.6 . Assessment and Plan 1. 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 Continue NOVOLOG with meals. - INSULIN SYRINGE U-100 WITH NEEDLE 1 ML 29 GAUGE X 1/2 - HEMOGLOBIN A1C (POC) - INSULIN DETEMIR (U-100) 100 UNIT/ML (3 ML) SUBCUTANEOUS PEN New insulin. Increase long acting insulin to 50 units at bedtime. Send glucose readings in 3-4 weeks. 2. Essential hypertension - ICD9: 401.9, ICD10: I10 - good control - Continue current medication(s) - Goal of BP <130/80 - METOPROLOL TARTRATE 50 MG TABLET 3. Hypothyroidism, unspecified type - ICD9: 244.9, ICD10: E03.9 - continue current dose of Synthroid. - LEVOTHYROXINE 112 MCG TABLET 4. ASCVD (arteriosclerotic cardiovascular disease) - ICD9: 429.2, 440.9, ICD10: I25.10 Stable. - METOPROLOL TARTRATE 50 MG TABLET Maldonado Denny MD SURGERY VISIT REPORT Observed: 08/14/2018 Status: F Source: [place] 4:24 PM [facility] REPOSITORY [facility] [address] [place] [address] OFFICE VISIT Date of Service: 08/14/18 MR#: [id number] Acct: [id number] Name: SANDY BRAVO Rep #: [id number] : 1965 Provider: Ruben Hu MD Age/Sex: 53/F Location: [facility] Status: Signed Intake Vital Signs08/14/18 Height 5 ft 3 in 08/14/18 Weight: 158 lb Intake Visit Reasons: 2nd Opinion Fistula Chute Greaser Required: No Is patient in pain?: No Allergies codeine Allergy (Unknown, Verified 08/14/18 14:25) Unknown latex Allergy (Unknown, Verified 08/14/18 14:25) Unknown Penicillins Allergy (Unknown, Verified 08/14/18 14:25) Unknown Medications amlodipine 10 mg tablet 10 mg PO DAILY 08/14/18 [History Confirmed 08/14/18] aspirin 81 mg tablet,delayed release 81 mg PO DAILY 08/14/18 [History Confirmed 08/14/18] atorvastatin 40 mg tablet 40 mg PO QHS 08/14/18 [History Confirmed 08/14/18] clonidine HCl 0.3 mg tablet 0.3 mg PO BID 08/14/18 [History Confirmed 08/14/18] insulin aspart U- 100 100 unit/mL subcutaneous pen 10 unit SC TID 08/14/18 [History Confirmed 08/14/18] insulin degludec (U-100) 100 unit/mL (3 mL) subcutaneous pen 20 unit SC DAILY 08/14/18 [History Confirmed 08/14/18] levothyroxine 112 mcg capsule 112 mcg PO DAILY 08/14/18 [History Confirmed 08/14/18] lisinopril 20 mg tablet 20 mg PO BID tab 08/14/18 [History Confirmed 08/14/18] metoprolol tartrate 50 mg tablet 50 mg PO BID 08/14/18 [History Confirmed 08/14/18] vitamin B complex-vitamin C-folic acid 0.8 mg tablet 1 tab PO DAILY 08/14/18 [History Confirmed 08/14/18] PFSH Medical History Hemorrhoids (Acute) Acid reflux (Acute) Constipation (Acute) Anxiety (Acute) Depression (Acute) Hypertension (Chronic) Heart disease (Acute) Diabetes (Acute) Thyroid disease (Acute) Surgical History Hx of bilateral breast reduction surgery (Acute) History of partial hysterectomy (Acute) History of bowel resection (Acute) Hx of appendectomy (Acute) Hx of cholecystectomy (Acute) Family History Brother Kidney disease Mother Cancer lung cancer Father Colon cancer Social History Smoking Status: Current every day smoker alcohol intake: never substance use type: does not use caffeine: Yes what type of physical activity do you participate in: none frequency: does not exercise HPI HPI HPI: SANDY BRAVO, is a 53 F who presents to the office today for second opinion consultation regarding arteriovenous hemodialysis fistula access. Information that I have available was provided by the patient and her . Patient states that approximately 1 year ago she had a left forearm radial to cephalic arteriovenous fistula created by Dr. Corona. Apparently only on 2 occasions has an attempt been made to access it on both occasions it infiltrated. The patient states that she has had at least 5-6 fistulograms over that time period. She states that also she has had at least 3 different tunneled hemodialysis catheters. The most recent intervention note that I have is March 20, 2018. That discussed poor left radial arterial inflow with extensive angioplasty of the radial artery. The patient is right arm dominant. She states that she thinks are mostly intervention was 2-3 weeks ago. She was instructed at that point that it would require another 6 weeks prior to repeat attempt at use. It is because of this that the patient's sustainable design consultant Dr. Brand is referring for second opinion. ROS General General: Yes weight change; no appetite, fatigue, colon cancer, breast cancer or weakness HEENT HEENT: No difficulty swallowing, eye injury, eye surgery, swollen glands or hoarseness Endo Endocrine: Yes thyroid disease and diabetes mellitus; no thyroid cancer, Hair loss, heat intolerance or cold intolerance Neuro Neurologic: No weakness Exam Const General: cooperative, comfortable, no acute distress Nutritional Appearance: average body habitus Orientation: alert, awake [facility] Head: normal to inspection Eyes General: appearance normal, both eyes and all related structures Resp Effort AND Inspection: normal respiratory effort Auscultation: clear to auscultation bilaterally Cardio Rate: regular rate Rhythm: regular rhythm GI Palpation: soft, no hepatosplenomegaly Extrem Other: Left upper extremity: Left forearm radiocephalic arteriovenous fistula. There is a pulse and thrill and bruit. The strength of the pulses diminished. Inspection on ultrasound reveals 5 mm diameter. Upon inspecting with ultrasound to the antecubital crease there does not appear to be direct flow across the antecubital crease into the cephalic vein of the upper arm. There appears to be rather deep penetration toward the brachial vein. On further inspection the left upper arm basilic vein appears to be patent and compressible but not overly matured Psych Affect: normal affect Assessment AND Plan Plan I would think that atypical fistula would be matured and ready for utilization and less than 1 year. From patient report there is been multiple attempts to make the fistula functional in that have not succeeded. I have concerns that there is arterial inflow problem and there may also be a direct venous outflow problem. This point I recommending a duplex examination of the left forearm radiocephalic AV fistula. I am additionally recommending bilateral upper extremity vein mapping. On my brief ultrasound inspection I suspect that the upper arm cephalic vein is diminutive or occluded. The patient might be a candidate for a stage I left upper extremity brachial to basilic AV fistula with subsequent plans for transposition. At least based upon historical evidence it would appear that the patient does not have adequate arterial inflow. It is of additional note that patient is a type I diabetic. She apparently has glucose out of control with glucose values running 400-500's. She states that she is supposed to again see her primary care physician Dr. Maldonado Denny in the near future. The patient states that her glucoses have been very difficult to control. I do not have access to her current hemoglobin A1c. I will copy Dr. Maldonado Denny on this note. Patient may require specialty endocrine care if her hemoglobin A1c is 10 or greater. I very much appreciate the kind opportunity of assisting with her surgical care. I will make further surgical recommendations based upon the duplex imaging exams which we will expedite. CC: Dr. Lane Nogueira and Dr. Maldonado Hu M.D., F.A.C.S. Orders Orders: Coding Level of Care Code Comprehensive,moderate 08/14/18 4642 <Electronically signed by Ruben Hu MD> Date Ruben uH MD Cosigner Signature: Date (if applicable) CC: Maldonado Denny MD CNOV Observed: 08/14/2018 Status: COMPLETED Source: [place] 3:[address] [facility] REPOSITORY Office Visit (INTMWS) SANDY BRAVO ([id number]) 1965 F Date Time Provider Department 08/14/18 3:40 PM MALDONADO DENNY INTChrisWS During your visit today, we recorded the following information about you: Temperature Pulse Respiration Blood pressure 97 degrees 64/minute 16/minute 124/56 Weight 72.1 kg Maldonado Denny MD 08/14/2018 3:53 PM Signed Mail glucose readings in 1 month. Maldonado Denny MD 08/14/2018 10:01 PM Signed This note was created using [employer]. Subjective Sandy Oneill Lawrence was here for follow up. Diabetes was not controlled. She was taking her medications. However, Amara will no longer be on Formulary beginning the next month. Her hypertension and lipids were controlled. She continued on dialysis, but Dr. Hu was working on her fistula which was not functioning well. Dr. Hu was interested in her A1C, per his report received today. 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 atorvastatin (LIPITOR) 40 mg tablet Take 1 tablet by mouth daily at bedtime. blood sugar diagnostic (BLOOD GLUCOSE TEST) test strip Test blood sugar(s) 3 times daily. Dx: Type 2 DM - Uncontrolled E11.65 Insulin: Yes Blood-Glucose Meter (BLOOD GLUCOSE MONITORING) monitoring kit 1 Each three times daily. E11.65. On insulin. cloNIDine HCl (CATAPRES) 0.3 mg tablet Take 1 tablet by mouth twice daily. Morning dose postponed to 3pm for dialysis days: Mon, Mon, Monday.. insulin aspart U-100 (NOVOLOG U-100 INSULIN ASPART) 100 unit/mL soln Inject eight (8) units three times a day with meals insulin needles, DISPOSABLE, (PEN NEEDLE) 31 gauge x 5/16 ndle Use one needle per dose. one per day. Insulin Syringe-Needle U-100 (BD INSULIN SYRINGE ULTRA-FINE) 1 mL 29 gauge x 1/2 syrg Use twice daily as directed. isosorbide mononitrate ER (IMDUR) 30 mg 24 hr tablet Take 30 mg by mouth once daily. levothyroxine (SYNTHROID) 112 mcg tablet TAKE ONE TABLET BY MOUTH DAILY ON an EMPTY stomach FOR THYROID. lisinopril (ZESTRIL, PRINIVIL) 20 mg tablet TAKE ONE TABLET BY MOUTH TWICE DAILY metoprolol tartrate, short acting, (LOPRESSOR) 50 mg tablet Take 1 tablet by mouth twice daily. NEPHRO-SONDRA 0.8 mg tab Take 1 tablet by mouth once daily. nitroglycerin sublingual (NITROQUICK) 0.4 mg SL tablet Dissolve 0.4 mg under the tongue every 5 minutes as needed. sevelamer (RENAGEL) 800 mg tablet Take 1,600 mg by mouth three times daily with meals. calcium acetate (PHOSLO) 667 mg capsule Take 2 capsules by mouth three times daily with meals. insulin detemir U-100 (LEVEMIR FLEXTOUCH U-100 INSULN) 100 unit/mL (3 mL) inpn injection Inject 50 Units subcutaneously daily at bedtime. No current facility-administered medications for this visit. Review of Systems Constitutional: Negative. Respiratory: Negative. Cardiovascular: Negative. Gastrointestinal: Negative. Genitourinary: Negative. Objective BP 124/56 (BP Site: Right Arm, BP Position: Sitting, BP Cuff Size: Regular Adult) Pulse 64 Temp 36.1 ?C (97 ?F) (Left Tympanic) Resp 16 Wt 72.1 kg (159 lb) BMI 28.62 kg/m? Physical Exam Constitutional: No distress. Eyes: Conjunctivae are normal. No scleral icterus. Neck: No JVD present. Cardiovascular: Regular rhythm and normal heart sounds. Exam reveals no gallop and no friction rub. No murmur heard. Pulmonary/Chest: Breath sounds normal. She has no wheezes. She has no rales. Musculoskeletal: She exhibits no edema. Glucose meter data or log was reviewed. Range: 68-434. Average: 251. Patient was testing QID. Higher frequency of testing needed: yes. Reason: frequent hypoglycemia, medication adjustment, uncontrolled DM, labile blood sugars. Hemoglobin A1C (%) Date Value 02/10/2018 7.1 Hemoglobin A1C (POCT) (%) Date Value 08/14/2018 6.6 . Assessment and Plan 1. 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 Continue NOVOLOG with meals. - INSULIN SYRINGE U-100 WITH NEEDLE 1 ML 29 GAUGE X 1/2 - HEMOGLOBIN A1C (POC) - INSULIN DETEMIR (U-100) 100 UNIT/ML (3 ML) SUBCUTANEOUS PEN New insulin. Increase long acting insulin to 50 units at bedtime. Send glucose readings in 3-4 weeks. 2. Essential hypertension - ICD9: 401.9, ICD10: I10 - good control - Continue current medication(s) - Goal of BP <130/80 - METOPROLOL TARTRATE 50 MG TABLET 3. Hypothyroidism, unspecified type - ICD9: 244.9, ICD10: E03.9 - continue current dose of Synthroid. - LEVOTHYROXINE 112 MCG TABLET 4. ASCVD (arteriosclerotic cardiovascular disease) - ICD9: 429.2, 440.9, ICD10: I25.10 Stable. 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) [E11.21, E11.65] Other Visit Diagnoses:Essential hypertension [I10] Hypothyroidism, unspecified type [E03.9] ASCVD (arteriosclerotic cardiovascular disease) [I25.10] Order(s):Insulin Syringe-Needle U-100 (BD INSULIN SYRINGE ULTRA-FINE) 1 mL 29 gauge x 1/2 syrgUse twice daily as directed.Disp: 200 SyringeRfl: 3 levothyroxine (SYNTHROID) 112 mcg tabletTAKE ONE TABLET BY MOUTH DAILY ON an EMPTY stomach FOR THYROID.Disp: 90 tabletRfl: 1 metoprolol tartrate, short acting, (LOPRESSOR) 50 mg tabletTake 1 tablet by mouth twice daily.Disp: 180 tabletRfl: 1 HEMOGLOBIN A1C (POC) [[id number]] Order #: [id number]. #:[id number] insulin detemir U-100 (LEVEMIR FLEXTOUCH U-100 INSULN) 100 unit/mL (3 mL) inpn injectionInject 50 Units subcutaneously daily at bedtime.Disp: 5 PenRfl: 5 Prescriptions as of 08/14/2018 Sig: AMLODIPINE 10 MG TABLET TAKE ONE TABLET BY MOUTH ONCE* * ASPIRIN 81 MG TABLET,DELAYED * Take 1 tablet by mouth once d* ATORVASTATIN 40 MG TABLET Take 1 tablet by mouth daily * BLOOD SUGAR DIAGNOSTIC STRIPS Test blood sugar(s) 3 times d* BLOOD-GLUCOSE METER KIT 1 Each three times daily. E11* CLONIDINE HCL 0.3 MG TABLET Take 1 tablet by mouth twice * INSULIN ASPART U-100 100 UNI* Inject eight (8) units three * PEN NEEDLE, DIABETIC 31 GAUGE* Use one needle per dose. one * INSULIN SYRINGE U-100 WITH NE* Use twice daily as directed. ISOSORBIDE MONONITRATE ER 30 * Take 30 mg by mouth once silvia* LEVOTHYROXINE 112 MCG TABLET TAKE ONE TABLET BY MOUTH SILVIA* LISINOPRIL 20 MG TABLET TAKE ONE TABLET BY MOUTH TWIC* METOPROLOL TARTRATE 50 MG TAB* Take 1 tablet by mouth twice * NEPHRO-SONDRA 0.8 MG TABLET Take 1 tablet by mouth once d* NITROGLYCERIN 0.4 MG SUBLINGU* Dissolve 0.4 mg under the ton* SEVELAMER HCL 800 MG TABLET Take 1,600 mg by mouth three * CALCIUM ACETATE 667 MG CAPSULE Take 2 capsules by mouth thre* INSULIN DETEMIR (U-100) 100 U* Inject 50 Units subcutaneousl* Problem List As Of Date 08/14/2018 Noted Resolved Calculus of ureter [N20.1] INVALID FOR*03/22/2012 Urinary tract infection, site not specified [N3*INVALID FOR*03/22/2012 Renal colic [N23] INVALID FOR*03/22/2012 Uncontrolled type 2 diabetes mellitus with prot*INVALID FOR* HTN (hypertension) [I10] INVALID FOR* Hyperlipidemia [E78.5] INVALID FOR* Depression [F32.9] INVALID FOR* Hypothyroid [E03.9] INVALID FOR* ASCVD (arteriosclerotic cardiovascular disease)*INVALID FOR* Proteinuria [R80.9] INVALID FOR* CKD (chronic kidney disease) stage 3, GFR 30-59*INVALID FOR*05/02/2017 CKD (chronic kidney disease) stage 4, GFR 15-29*INVALID FOR*03/02/2018 More... CKD (chronic kidney disease) stage V requiring *INVALID FOR* More... Other instructions from your clinician: Mail glucose readings in 1 month. Prescriptions ordered this encounter Disp Refills Start End INSULIN SYRINGE U-100 WITH NEEDLE 1 * 200 * 3 08/14/2018 Sig: Use twice daily as directed. LEVOTHYROXINE 112 MCG TABLET 90 t* 1 08/14/2018 Sig: TAKE ONE TABLET BY MOUTH DAILY ON an EMPTY stomach FOR THYROID. METOPROLOL TARTRATE 50 MG TABLET 180 * 1 08/14/2018 Route: ORAL Sig: Take 1 tablet by mouth twice daily. INSULIN DETEMIR (U-100) 100 UNIT/ML * 5 Pen 5 08/14/2018 Cmt: Replacing Tresiba. Route: SUBCUTANEOUS Sig: Inject 50 Units subcutaneously daily at bedtime. Medications Discontinued During This Encounter Insulin Syringe-Needle U-100 (BD INS* 200 * 3 04/05/2017 08/14/2018 Sig: Use twice daily as directed. Disc: Reason for discontinue is not on file. levothyroxine (SYNTHROID) 112 mcg ta* 90 t* 1 03/21/2018 08/14/2018 Sig: TAKE ONE TABLET BY MOUTH DAILY ON an EMPTY stomach FOR THYROID. Disc: Reason for discontinue is not on file. metoprolol tartrate, short acting, (* 180 * 1 05/10/2018 08/14/2018 Route: ORAL Sig: Take 1 tablet by mouth twice daily. Disc: Reason for discontinue is not on file. insulin degludec (TRESIBA) 100 unit/* 15 mL 5 03/16/2018 08/14/2018 Route: SUBCUTANEOUS Sig: Inject 40 Units subcutaneously daily at bedtime. Disc: Not on Formulary Disposition: Return in about 3 months (around 11/12/2018). Follow-up and Disposition History Recorded Encounter Status:Closed by MALDONADO DENNY MD on 08/14/18 Observed: 07/24/2018 Status: F Source: [facility] CATH TIP 6:35 PM [facility] REPOSITORY Order Comment: [place]: M : PERMCATH REMOVED IN IR NO GROWTH AFTER 5 DAYS Performed By: #### [id number] #### [facility] [address] [place] [address] GLUCOSE METER Collected: 07/24/2018 Status: F Source: [facility] 3:46 PM [facility] REPOSITORY TYPE CODE TESTS RESULT OUT OF REFERENCE UNITS RANGE LAB L500.75346 85-125 MG/DL High GLUCOSE METER 150 CBC Collected: 07/24/2018 Status: F Source: [facility] 11:31 AM [facility] REPOSITORY Order Comment: [place]: M TYPE CODE TESTS RESULT OUT OF RANGE REFERENCE UNITS LAB L200.56322 4.5-11.0 K/CU MM Normal WBC 6.3 LAB L200.72664 3.90-5.30 M/CU MM Low RBC 3.24 LAB L200.63783 11.5-15.5 G/DL Low HGB 9.9 LAB L200.97599 35.0-47.0 % Low HCT 29.9 LAB L200.99736 80.0-99.0 fl Normal MCV 92.3 LAB L200.59423 32.0-36.0 GM/DL Normal MCHC 33.1 LAB L200.06533 11-14.5 Normal RDW 12.9 LAB L200.20526 9.4-12.4 Low MPV 9.2 LAB L200.27203 150-450 K/CU MM Normal PLT 204 LAB L200.12361 Less than 1 % Normal NRBC 0.0 Performed By: #### L200.38827 #### [facility] [place] [address] RENAL Collected: 07/24/2018 Status: F Source: [facility] 11:31 AM [facility] REPOSITORY Order Comment: [place]: TYPE CODE TESTS RESULT OUT OF RANGE REFERENCE UNITS LAB L500.08882 136-145 MMOL/L Normal NA 138 LAB L500.45129 3.5-5.1 MMOL/L Normal K 5.0 LAB L500.22572 98-107 MMOL/L Normal CL 101 LAB L500.60556 21-32 MMOL/L Normal CO2 26 LAB L500.95659 5-16 MMOL/L Normal AGAP 11 LAB L500.96554 70-100 MG/DL High GLU 188 Result Comment: 70-100- Normal Fasting; 100-125 Impaired Fasting; greater than 126 on more than one result- Diabetes. ADA guidelines. Results may be falsely elevated after the administration of Sulfapyridine. Results may be falsely depressed after the administration of Sulfasalazine. LAB L500.86398 7-26 MG/DL High BUN 44 LAB L500.06822 0.510-0.950 MG/DL High CREAT 5.180 Result Comment: Patients receiving either N-Acetylcysteine (NAC) or Metamizole prior to venipuncture, may have falsely depressed results. LAB L500.65107 15-24 Low BUN/CREA 9 LAB L500.48036 3.2-5.0 GM/DL Normal ALBUMIN 3.5 LAB L500.63551 8.5-10.1 MG/DL Normal CALCIUM TOTAL 9.0 LAB L500.74247 2.5-4.9 MG/DL Normal PHOS 4.2 Performed By: #### L500.15309, L500.49368 #### [facility] [address] [place] [address] GFR EST Collected: 07/24/2018 Status: F Source: [facility] 11:31 AM [facility] REPOSITORY Order Comment: [place]: M TYPE CODE TESTS RESULT OUT OF RANGE REFERENCE UNITS LAB L500.00216 ML/MIN Normal IF non-AFR 9 AMER LAB L500.66176 ML/MIN Normal IF 10 AMER Performed By: #### L500.39522, L500.55643 #### [facility] [address] [phone] [place] Observed: 07/24/2018 Status: UNK Source: [facility] 10:23 AM [facility] REPOSITORY DATE OF SERVICE: 07/24/2018 PREOPERATIVE DIAGNOSES: 1. Non-maturing arteriovenous fistula. 2. Severe radial artery stenosis. POSTOPERATIVE DIAGNOSES: 1. Non-maturing arteriovenous fistula. 2. Severe radial artery stenosis. OPERATIONS: 1. Ultrasound-guided arterial puncture left brachial artery. 2. Angiogram left upper extremity with fistulogram. 3. Angioplasty of left radial artery with 3 mm x 10 cm cutting balloon x2. 4. Cutting balloon angioplasty x4 of left radial artery with 3 mm x 1.5 cm [employer] cutting balloon. 5. Angioplasty of proximal arteriovenous fistula with 4 mm x 4 cm cutting balloon. COMPLICATIONS: None. SURGEON: Héctor Bonilla MD ANESTHESIA: IV sedation monitored care. FINDINGS: Severe multisegmental stenosis of distal radial artery as well as just proximal to the anastomosis with successful angioplasty. PROCEDURE IN DETAIL: The patient was brought to the angioplasty suite and was placed in supine position, placed on pulse oximetry cardiac monitoring. Given IV sedation with fentanyl 25 mcg and Versed 1 mg. Total time was 55 minutes. Attention was placed to the left arm where ultrasound guidance was used to gain access. The left arm was prepped and draped in standard fashion to the brachial artery. Exchange was made out with guiding down to the radial artery. Angiogram of the upper extremity revealed diminutive multiple stenoses of the distal radial artery as well as particularly in the proximal to the anastomosis which was noted on her preoperative workup. We systemically heparinized the patient, exchanged out for a 4-Kenyan sheath over a Glidewire and managed to go up and over the anastomosis down the fistula. We then exchanged out for an 0.014 wire across the anastomosis. We then angioplastied with a 3 x 10 balloon in the radial artery with significant improvement, but multiple stenoses still remained; particularly resistant was just proximal to the anastomosis. [facility] PATIENT NAME: SANDY BRAVO [address] [place] MEDICAL REC #: [id number] [place] [address] ADMIT DATE: DISCHARGE DATE: OPERATIVE REPORT ATTENDING PHY: Héctor Bonilla MD We then addressed the outflow in the fistula with a 4 x 4 cutting balloon. This gave us a 10 mm pressure for 1-1/2 minutes. This gave us great improvement. We then exchanged out with the wire going down the distal artery and did a cutting balloon angioplasty 4 times to the distal radial artery with significant improvement, with actual dramatic improvement in flow. We then did again another 3 x 10 balloon inflation with 10 mm, took 1 minute. It gave us beautiful results, dramatic improvement of flow and had a positive thrill to the fistula. No signs of complicating factors. We had used a 6-Kenyan sheath. We pulled after HCT normalized. The patient was getting over to Interventional Radiology to have her Perm-A-Cath exchanged. Héctor Bonilla MD JUAN [id number] SSI File#: [id number] Verified/Reviewed by 07/25/18 Adele DARBY [facility] PATIENT NAME: SANDY BRAVO [facility] [address] [place] MEDICAL REC #: [id number] [place] [address] ADMIT DATE: DISCHARGE DATE: OPERATIVE REPORT ATTENDING PHY: Héctor Bonilla MD REMOVAL PERMA CATH Observed: 07/24/2018 Status: F Source: [facility] 10:23 AM [facility] REPOSITORY PL CENTRAL TUNNEL NO PORT/PUMP, REMOVAL PERMA CATH, US GUIDE VASCULAR ACCESS, FLUORO GUIDANCE PLACEMENT, US GUIDE VASCULAR ACCESS Ordering Physician: Héctor Bonilla MD 07/24/2018 3:57 PM 1. EXPLANT OF TUNNELED RIGHT INTERNAL JUGULAR DIALYSIS CATHETER. 2. Conscious sedation performed by Dr. De Jesus. 3. Right internal jugular ultrasound venogram. 4. Combined ultrasound and fluoroscopic-guided placement of a tunneled right internal jugular dialysis catheter. Clinical Statement: End-stage renal disease Radiation Dose: 1 mGy Fluoroscopic Time: 0.7 minutes Contrast Dose: None Procedure: After informed consent was obtained, the patient was placed supine on the angiography table. Conscious sedation was instituted by Dr. De Jesus. Intravenous Versed and Fentanyl were utilized. The patient was monitored using continuous electrocardiogram, pulse oximetry and cuff blood pressure measurement. The area of the right neck and upper chest was prepped and draped in the usual sterile fashion. The previously placed right internal jugular tunneled dialysis catheter was explanted using blunt dissection following the administration of local anesthesia utilizing 2% lidocaine. The catheter was removed in its entirety. The tip was sent for culture. The area of the right neck and upper chest was again prepped and draped in the usual sterile fashion. Initial ultrasound evaluation of the right internal jugular vein demonstrates it to be widely patent with appropriate cardiac pulsatility, indicating patency to the right atrium. After local infiltrative anesthesia with 2% plain lidocaine, the right internal jugular vein was accessed under direct ultrasound visualization. Permanent ultrasound images were taken and recorded. Attention was then drawn to creation of the subcutaneous tunnel. After additional local infiltrative anesthesia with 2% plain lidocaine, a small dermatotomy was opened just caudal to the right clavicle. The catheter was then tunneled from its exit site to the right internal jugular dermatotomy. Using guidewire and catheter exchange technique, the subcutaneous tissues were dilated and the delivery sheath for the PermCath deployed. This was performed under fluoroscopic control. The catheter was then deployed through the delivery sheath and delivery sheath removed in the standard fashion. This was also performed under fluoroscopic control. The catheter has its tip at the junction of the superior vena cava and right atrium. Catheter length is 24 cm tip to cuff. The catheter functions appropriately. The catheter was primed with the appropriate volume of heparinized solution. The right internal jugular dermatotomy was closed with 4-0 Vicryl. The catheter was secured in position with 3-0 Prolene and sterile dressing applied. At the close of the procedure, hemostasis was maintained. The patient was then discharged from the angiography area in good condition having tolerated the procedure well. IMPRESSION: 1. Conscious sedation performed by Dr. De Jesus. 2. Successful explantation of previously placed tunneled right internal jugular dialysis catheter. 3. Successful combined ultrasound and fluoroscopic-guided placement of a tunneled right internal jugular dialysis catheter. Dictated by [employer] Teacher: Romero Vergara MD Reviewed and Signed by: Jonn De Jesus MD ---- Electronic Signature on File ---- Signed By: Jonn De Jesus MD [email or web address] Dictated: 07/25/2018 8:11 AM Signed: 07/25/2018 8:39 AM Reported By: JONN DE JESUS M.D. Signed By: JONN DE JESUS M.D. PL CENTRAL TUNNEL NO Observed: 07/24/2018 Status: F Source: [facility] 10:[address] [facility] [address] CENTRAL TUNNEL NO PORT/PUMP, REMOVAL PERMA CATH, US GUIDE VASCULAR ACCESS, FLUORO GUIDANCE PLACEMENT, US GUIDE VASCULAR ACCESS Ordering Physician: Héctor Bonilla MD 07/24/2018 3:57 PM 1. EXPLANT OF TUNNELED RIGHT INTERNAL JUGULAR DIALYSIS CATHETER. 2. Conscious sedation performed by Dr. De Jesus. 3. Right internal jugular ultrasound venogram. 4. Combined ultrasound and fluoroscopic-guided placement of a tunneled right internal jugular dialysis catheter. Clinical Statement: End-stage renal disease Radiation Dose: 1 mGy Fluoroscopic Time: 0.7 minutes Contrast Dose: None Procedure: After informed consent was obtained, the patient was placed supine on the angiography table. Conscious sedation was instituted by Dr. De Jesus. Intravenous Versed and Fentanyl were utilized. The patient was monitored using continuous electrocardiogram, pulse oximetry and cuff blood pressure measurement. The area of the right neck and upper chest was prepped and draped in the usual sterile fashion. The previously placed right internal jugular tunneled dialysis catheter was explanted using blunt dissection following the administration of local anesthesia utilizing 2% lidocaine. The catheter was removed in its entirety. The tip was sent for culture. The area of the right neck and upper chest was again prepped and draped in the usual sterile fashion. Initial ultrasound evaluation of the right internal jugular vein demonstrates it to be widely patent with appropriate cardiac pulsatility, indicating patency to the right atrium. After local infiltrative anesthesia with 2% plain lidocaine, the right internal jugular vein was accessed under direct ultrasound visualization. Permanent ultrasound images were taken and recorded. Attention was then drawn to creation of the subcutaneous tunnel. After additional local infiltrative anesthesia with 2% plain lidocaine, a small dermatotomy was opened just caudal to the right clavicle. The catheter was then tunneled from its exit site to the right internal jugular dermatotomy. Using guidewire and catheter exchange technique, the subcutaneous tissues were dilated and the delivery sheath for the PermCath deployed. This was performed under fluoroscopic control. The catheter was then deployed through the delivery sheath and delivery sheath removed in the standard fashion. This was also performed under fluoroscopic control. The catheter has its tip at the junction of the superior vena cava and right atrium. Catheter length is 24 cm tip to cuff. The catheter functions appropriately. The catheter was primed with the appropriate volume of heparinized solution. The right internal jugular dermatotomy was closed with 4-0 Vicryl. The catheter was secured in position with 3-0 Prolene and sterile dressing applied. At the close of the procedure, hemostasis was maintained. The patient was then discharged from the angiography area in good condition having tolerated the procedure well. IMPRESSION: 1. Conscious sedation performed by Dr. De Jesus. 2. Successful explantation of previously placed tunneled right internal jugular dialysis catheter. 3. Successful combined ultrasound and fluoroscopic-guided placement of a tunneled right internal jugular dialysis catheter. Dictated by [employer] Teacher: Romero Vergara MD Reviewed and Signed by: Jonn De Jesus MD ---- Electronic Signature on File ---- Signed By: Jonn De Jesus MD [email or web address] Dictated: 07/25/2018 8:11 AM Signed: 07/25/2018 8:39 AM Reported By: JONN DE JESUS M.D. Signed By: JONN DE JESUS M.D. US GUIDE VASCULAR Observed: 07/24/2018 Status: F Source: [facility] 10:23 AM [facility] REPOSITORY PL CENTRAL TUNNEL NO PORT/PUMP, REMOVAL PERMA CATH, US GUIDE VASCULAR ACCESS, FLUORO GUIDANCE PLACEMENT, US GUIDE VASCULAR ACCESS Ordering Physician: Héctor Bonilla MD 07/24/2018 3:57 PM 1. EXPLANT OF TUNNELED RIGHT INTERNAL JUGULAR DIALYSIS CATHETER. 2. Conscious sedation performed by Dr. De Jesus. 3. Right internal jugular ultrasound venogram. 4. Combined ultrasound and fluoroscopic-guided placement of a tunneled right internal jugular dialysis catheter. Clinical Statement: End-stage renal disease Radiation Dose: 1 mGy Fluoroscopic Time: 0.7 minutes Contrast Dose: None Procedure: After informed consent was obtained, the patient was placed supine on the angiography table. Conscious sedation was instituted by Dr. De Jesus. Intravenous Versed and Fentanyl were utilized. The patient was monitored using continuous electrocardiogram, pulse oximetry and cuff blood pressure measurement. The area of the right neck and upper chest was prepped and draped in the usual sterile fashion. The previously placed right internal jugular tunneled dialysis catheter was explanted using blunt dissection following the administration of local anesthesia utilizing 2% lidocaine. The catheter was removed in its entirety. The tip was sent for culture. The area of the right neck and upper chest was again prepped and draped in the usual sterile fashion. Initial ultrasound evaluation of the right internal jugular vein demonstrates it to be widely patent with appropriate cardiac pulsatility, indicating patency to the right atrium. After local infiltrative anesthesia with 2% plain lidocaine, the right internal jugular vein was accessed under direct ultrasound visualization. Permanent ultrasound images were taken and recorded. Attention was then drawn to creation of the subcutaneous tunnel. After additional local infiltrative anesthesia with 2% plain lidocaine, a small dermatotomy was opened just caudal to the right clavicle. The catheter was then tunneled from its exit site to the right internal jugular dermatotomy. Using guidewire and catheter exchange technique, the subcutaneous tissues were dilated and the delivery sheath for the PermCath deployed. This was performed under fluoroscopic control. The catheter was then deployed through the delivery sheath and delivery sheath removed in the standard fashion. This was also performed under fluoroscopic control. The catheter has its tip at the junction of the superior vena cava and right atrium. Catheter length is 24 cm tip to cuff. The catheter functions appropriately. The catheter was primed with the appropriate volume of heparinized solution. The right internal jugular dermatotomy was closed with 4-0 Vicryl. The catheter was secured in position with 3-0 Prolene and sterile dressing applied. At the close of the procedure, hemostasis was maintained. The patient was then discharged from the angiography area in good condition having tolerated the procedure well. IMPRESSION: 1. Conscious sedation performed by Dr. De Jesus. 2. Successful explantation of previously placed tunneled right internal jugular dialysis catheter. 3. Successful combined ultrasound and fluoroscopic-guided placement of a tunneled right internal jugular dialysis catheter. Dictated by [employer] Science Teacher: Romero Vergara MD Reviewed and Signed by: Jonn De Jesus MD ---- Electronic Signature on File ---- Signed By: Jonn De Jesus MD [email or web address] Dictated: 07/25/2018 8:11 AM Signed: 07/25/2018 8:39 AM Reported By: JONN DE JESUS M.D. Signed By: JONN DE JESUS M.D. FLUORO GUIDANCE Observed: 07/24/2018 Status: F Source: [facility] 10:23 AM [facility] TUNNEL NO PORT/PUMP, REMOVAL PERMA CATH, US GUIDE VASCULAR ACCESS, FLUORO GUIDANCE PLACEMENT, US GUIDE VASCULAR ACCESS Ordering Physician: Héctor Bonilla MD 07/24/2018 3:57 PM 1. EXPLANT OF TUNNELED RIGHT INTERNAL JUGULAR DIALYSIS CATHETER. 2. Conscious sedation performed by Dr. De Jesus. 3. Right internal jugular ultrasound venogram. 4. Combined ultrasound and fluoroscopic-guided placement of a tunneled right internal jugular dialysis catheter. Clinical Statement: End-stage renal disease Radiation Dose: 1 mGy Fluoroscopic Time: 0.7 minutes Contrast Dose: None Procedure: After informed consent was obtained, the patient was placed supine on the angiography table. Conscious sedation was instituted by Dr. De Jesus. Intravenous Versed and Fentanyl were utilized. The patient was monitored using continuous electrocardiogram, pulse oximetry and cuff blood pressure measurement. The area of the right neck and upper chest was prepped and draped in the usual sterile fashion. The previously placed right internal jugular tunneled dialysis catheter was explanted using blunt dissection following the administration of local anesthesia utilizing 2% lidocaine. The catheter was removed in its entirety. The tip was sent for culture. The area of the right neck and upper chest was again prepped and draped in the usual sterile fashion. Initial ultrasound evaluation of the right internal jugular vein demonstrates it to be widely patent with appropriate cardiac pulsatility, indicating patency to the right atrium. After local infiltrative anesthesia with 2% plain lidocaine, the right internal jugular vein was accessed under direct ultrasound visualization. Permanent ultrasound images were taken and recorded. Attention was then drawn to creation of the subcutaneous tunnel. After additional local infiltrative anesthesia with 2% plain lidocaine, a small dermatotomy was opened just caudal to the right clavicle. The catheter was then tunneled from its exit site to the right internal jugular dermatotomy. Using guidewire and catheter exchange technique, the subcutaneous tissues were dilated and the delivery sheath for the PermCath deployed. This was performed under fluoroscopic control. The catheter was then deployed through the delivery sheath and delivery sheath removed in the standard fashion. This was also performed under fluoroscopic control. The catheter has its tip at the junction of the superior vena cava and right atrium. Catheter length is 24 cm tip to cuff. The catheter functions appropriately. The catheter was primed with the appropriate volume of heparinized solution. The right internal jugular dermatotomy was closed with 4-0 Vicryl. The catheter was secured in position with 3-0 Prolene and sterile dressing applied. At the close of the procedure, hemostasis was maintained. The patient was then discharged from the angiography area in good condition having tolerated the procedure well. IMPRESSION: 1. Conscious sedation performed by Dr. De Jesus. 2. Successful explantation of previously placed tunneled right internal jugular dialysis catheter. 3. Successful combined ultrasound and fluoroscopic-guided placement of a tunneled right internal jugular dialysis catheter. Dictated by [employer] Science Teacher: Romero Vergara MD Reviewed and Signed by: Jonn De Jesus MD ---- Electronic Signature on File ---- Signed By: Jonn De Jesus MD [email or web address] Dictated: 07/25/2018 8:11 AM Signed: 07/25/2018 8:39 AM Reported By: JONN DE JESUS M.D. Signed By: JONN DE JESUS M.D. Observed: 06/15/2018 Status: F Source: [facility] INFLUENZA VIRUS RAPID 10:40 AM [facility] A/B REPOSITORY INFLUENZA A NEGATIVE INFLUENZA B NEGATIVE INTERNAL NEG QC PASS INTERNAL POS QC PASS EXTERNAL QC DONE? YES A NEGATIVE TEST RESULT DOES NOT EXCLUDE INFECTION WITH INFLUENZA A OR B. THEREFORE, THE RESULTS OBTAINED FROM THIS FLU TEST SHOULD BE USED IN CONJUCTION WITH CLINICAL FINDINGS TO MAKE AN ACCURATE DIAGNOSIS. A POSITIVE RESULT DOES NOT RULE OUT CO-INFECTIONS WITH OTHER PATHOGENS OR IDENTIFY ANY SPECIFIC INFLUENZA A VIRUS SUBTYPE.CO-INFECTION WITH INFLUENZA A AND B IS RARE. IT IS RECOMMENDED THAT DUAL POSITIVE RESULTS BE CONFIRMED BY VIRAL CULTURE OR AN FDA-CLEARED INFLUENZA A AND B MOLECULAR ASSAY. INDIVIDUALS WHO HAVE RECEIVED NASALLY ADMINISTERED INFLUENZA A VACCINE MAY TEST POSITIVE IN COMMERCIALLY AVAILABLE INFLUENZA RAPID DIAGNOSTIC TESTS FOR UP TO THREE DAYS. Performed By: #### [id number] #### [facility],[address] [place] [address] CHEST 1 VIEW Observed: 06/15/2018 Status: F Source: [facility] 9:23 AM [place] [id number] Patient: SANDY BRAVO Phone#: : 1965 Age: 53 Gender: F Pt. Type: ER Account: [id number] Location: [facility] Ordering: TONI DEL VALLE Exam Date: 06/15/2018/9:09 Family Phys: MALDONADO DENNY Charge Code: [id number] Physician: Yancey Order #: [id number] DLP Dose#: PROCEDURE: X-RAY CHEST 1 VIEW COMPARISON: [facility], XR, CHEST 1 VIEW, 05/11/2018, 5:52. INDICATIONS: Shortness of breath FINDINGS: LUNGS: Of increased density in the right lower thorax is present. This blunting costophrenic angle and opacification may be on the basis of effusion although atelectasis or infiltrate cannot be excluded. VASCULATURE: Normal. Unremarkable pulmonary vasculature. CARDIAC: Normal. No cardiac silhouette abnormality or cardiomegaly. MEDIASTINUM: Normal. No visible mass or adenopathy. PLEURA: Normal. No effusion or pleural thickening. BONES: Normal. No fracture or visible bony lesion. OTHER: Port catheter is present with the tip terminating in the superior vena cava. CONCLUSION: 1. Opacification in the right lower thorax is consistent with small effusion. Superimposed infiltrate or atelectasis is suspected. Dictated by: Masha Richardson MD on 06/15/2018 at 9:34 Approved by: Masha Richardson MD on 06/15/2018 at 9:34 EMERGENCY REPORT Observed: 06/15/2018 Status: F Source: [facility] 8:49 AM [facility] EMERGENCY ROOM REPORT NAME ACCOUNT SEX AGE ADMIT DISCHARGE PT MED. RECORD# NUMBER DATE DATE TYPE SANDY BRAVO [id number] F 53 06/15/18 06/15/18 3 [id number] ROOM: ER DATE OF : 1965 DICTATING PHYSICIAN: Toni Del Valle CHIEF COMPLAINT: Not feeling well. HISTORY OF PRESENT ILLNESS: Patient states that since Monday, the , she has not felt well. She has had nausea and vomiting with some chills and fever. This has been going on for several days. She states her temperature has been up to as high as 103.0. She has become short of breath over the past couple of days and has had some cough, though it is not productive. She complains of some discomfort to her chest with breathing. She has not been able to eat or drink much for the last couple of days at least because of the nausea and vomiting. Additionally, she has not had dialysis for a week, missing 2 previous dialysis this week because she was so sick. PAST MEDICAL HISTORY: Significant for renal failure requiring dialysis. She has a history of hypertension, coronary artery disease and CHF, history of diabetes. PAST SURGICAL HISTORY: She has had multiple previous surgeries including appendectomy, cholecystectomy, hysterectomy, and coronary stent placements. MEDICATIONS: Per medication reconciliation list. ALLERGIES: Per allergy list. SOCIAL HISTORY: She lives at home. She has smoked in the past; does not smoke presently. Does not drink alcohol. She is accompanied here with her . REVIEW OF SYSTEMS: As mentioned above. Not complaining of headache or dizziness. No bleeding disorders. Has felt weak and fatigued. No recent trauma. PHYSICAL EXAMINATION: This is a 53-year-old female who is alert and appropriate. Patient does not appear toxic or in any respiratory distress. Her skin is pink, warm and dry. HEENT exam essentially all within normal limits. Her neck is supple without any JVD. Her lungs are diminished, particularly on the right. Does not seem to have significant tachypnea or respiratory distress. Rare cough. No chest wall tenderness. Cardiac exam, regular rhythm without any ectopy or murmurs. Abdomen is soft and nontender. She moves extremities appropriately with good peripheral pulses. Capillary refill 1-2 seconds. No redness, tenderness or asymmetry. Vital Signs: Temperature 98.1, pulse 98, respirations 18, blood pressure 197/83, her O2 saturation was 96 to 98% on room air. Page 1 of 2 SANDY BRAVO Emergency Room Report DIAGNOSTIC DATA: She had an EKG on arrival which showed sinus rhythm without any obvious acute ST or T changes. Rapid flu was obtained; this was negative. We did a chest x-ray which showed a right lower lobe infiltrate and a small right effusion. EMERGENCY DEPARTMENT COURSE AND TREATMENT: Multiple attempts were used to try to establish a peripheral IV and try to get any labs drawn. We were unsuccessful getting any peripheral blood drawn or IV attempts. She does have an external subclavian port that is used for dialysis. I called Dr. Brand about possibly accessing this for IV fluids, labs, antibiotics, etc. He stated that he would advise for her to go to the dialysis unit here in town where she could get her needed dialysis and all of the labs and antibiotics could be done and administered there. DIAGNOSES: 1. Pneumonia. 2. Renal failure. PLAN/DISPOSITION: She is hemodynamically stable presently so she will be discharged and transferred to the dialysis unit. We did call them and they are able to take her there to begin dialysis. They will call Dr. Brand for further orders. Dictated By: Toni Del Valle MD 06/15/18 12:18 JOB #: [id number] Transcribed By: shaina 06/15/18 22:41 Electronically signed by: LUIS F Del Valle M.D. 06/21/18 07:12 Page 2 of 2 SANDY BRAVO Emergency Room Report CBC Collected: 06/07/2018 Status: F Source: [facility] 10:55 PM [facility] REPOSITORY TYPE CODE TESTS RESULT OUT OF RANGE REFERENCE UNITS LAB CBC(LOINC) CBC Result Comment: CBC-COMPLETE BLOOD COUNT LAB WBC(LOINC) 4.5 - 10.8 x 10EE3/UL WBC 6.0 LAB RBC(LOINC) 4.10 - x 10EE6/UL 5.30 RBC Low 3.47 LAB HEMOGLOBIN(LOINC) 12.0 - g/dl 16.0 Low HEMOGLOBIN 10.8 LAB HEMATOCRIT(LOINC) 34.0 - % 46.0 Low HEMATOCRIT 30.4 LAB MCV(LOINC) 80 - 99 fl MCV 88 LAB MCH(LOINC) 27 - 33 pg MCH 31 LAB MCHC(LOINC) 32 - 36 X10 3 MCHC 36 LAB RDW/CV(LOINC) 12.0 - % 15.6 RDW/CV 13.7 LAB PLATELET(LOINC) 150 - 450 x10EE3/UL PLATELET 201 LAB MPV(LOINC) 6.6 - 10.5 fl MPV 7.1 Result Comment: AUTOMATED DIFFERENTIAL LAB NEUT %(LOINC) 46.0 - 76.0 % NEUT % 57.5 LAB LYMPH %(LOINC) 20.0 - 45.0 % LYMPH % 32.1 LAB MONOS %(LOINC) 0.0 - 10.0 % MONOS % 5.9 LAB EO %(LOINC) 0.0 - 7.0 % EO % 3.2 LAB BASO %(LOINC) 0.0 - 2.0 % BASO % 1.3 LAB Lymph #(LOINC) 0.80 - 2.80 x10EE3/U L Lymph # 1.90 LAB Neut #(LOINC) 1.50 - 7.10 x10EE3/U L Neut # 3.40 LAB Maury #(LOINC) 0.20 - 1.00 x10EE3/U L Maury # 0.40 LAB EO #(LOINC) 0.00 - 0.50 x10EE3/U L EO # 0.20 LAB Baso #(LOINC) 0.00 - 0.10 x10EE3/U L Baso # 0.10 LAB MANUAL DIFF(LOINC) MANUAL DIFF N/A LAB MORPHOLOGY(INC ) MORPHOLOGY N/A Result Comment: {CD] Performed By: #### [id number] #### [facility],[address] [place] [address] CMP WITH EGFR Collected: 06/07/2018 Status: F Source: [facility] 10:55 PM [facility] REPOSITORY TYPE CODE TESTS RESULT OUT OF RANGE REFERENCE UNITS LAB CMP with eGFR(LOINC) CMP with eGFR Result Comment: COMPREHENSIVE METABOLIC PANEL LAB SODIUM(LOINC) 136 - 145 mmol/l SODIUM 139 LAB POTASSIUM(LOINC) 3.5 - 5.1 mmol/L POTASSIUM 5.0 LAB CHLORIDE(LOINC) 98 - 107 mmol/L CHLORIDE 104 LAB CO2(LOINC) 21.0 - mmol/L 31.0 CO2 26.2 LAB GLUCOSE(LOINC) 74 - 106 mg/dl GLUCOSE High 154 LAB BUN(LOINC) 6 - 20 mg/dl BUN High 46 LAB CREATININE(LOINC) 0.6 - 1.2 mg/dl High CREATININE 5.6 LAB AST/SGOT(LOINC) 13 - 39 U/L AST/SGOT 22 LAB ALK PHOS(LOINC) 38 - 126 U/L ALK PHOS 116 LAB CALCIUM(LOINC) 8.6 - mg/dl 10.2 CALCIUM 9.0 LAB TOTAL 6.4 - 8.3 g/dl PROTEIN(LOINC) TOTAL Low PROTEIN 5.7 LAB ALBUMIN(LOINC) 3.4 - 4.8 g/dL ALBUMIN 3.5 LAB GLOBULIN(LOINC) 1.5 - 3.8 G/DL GLOBULIN 2.2 LAB A/G RATIO(LOINC) 0.9 - 1.6 A/G RATIO 1.6 LAB TOTAL BILI(LOINC) 0.0 - 1.5 mg/dl TOTAL BILI 0.3 LAB B/C RATIO(LOINC) 0 - 30 ratio B/C RATIO 8 LAB ALT/SGPT(LOINC) 8 - 35 U/L ALT/SGPT 15 LAB ANION GAP(LOINC) 10 - 20 mmol/L ANION GAP 14 LAB AGE(LOINC) years AGE 53 LAB eGFR(LOINC) 60 - 999 ML/MINUTE eGFR Low 8 LAB eGFR(AA)(LOINC) 60 - 999 ML/MINUTE eGFR(AA) Low 10 Result Comment: ACCORDING TO THE NATIONAL KIDNEY DISEASE EDUCATION PROGRAM(NKDE), A NORMAL eGFR IS A VALUE GREATER THAN OR EQUAL TO 60 ML/MIN/1.73 SQ METERS. CHRONIC KIDNEY DISEASE: <60mL/MIN/1.73 SQ METERS KIDNEY FAILURE: <15mL/MIN/1.73 SQ METERS THIS TEST SHOULD ONLY BE USED FOR PATIENTS 18 YEARS OF AGE AND OLDER. Performed By: #### [id number] #### [facility],[address] [place] [address] CT CHEST W/O CONTRAST Observed: 06/07/2018 Status: F Source: [facility] 10:53 PM [place] [address] Patient: SANDY BRAVO Phone#: : [phone] Age: 53 Gender: F Pt. Type: ER Account: [id number] Location: [facility] Ordering: KADE DE LA TORRE Exam Date: 06/07/2018/22:42 Family Phys: MALDONADO DENNY Charge Code: [id number] Physician: Yancey Order #: [id number] DLP Dose#: PROCEDURE: CT CHEST WITHOUT CONTRAST COMPARISON: [facility], , CHEST 1 VIEW, 05/11/2018, 5:52. INDICATIONS: Abcess TECHNIQUE: CT images were created without the administration of contrast material. All CT scans at this facility use dose modulation, iterative reconstruction, and/or weight based dosing when appropriate to reduce radiation dose to as low as reasonably achievable. IV CONTRAST: No IV contrast used,0ml TOTAL DOSE: 6.10 CTDIvol(mGy) FINDINGS: LUNGS: Normal. No visible pulmonary disease. VASCULATURE: Normal. Thrombus cannot be excluded without intravenous contrast. NICK: Normal. No mass or adenopathy. MEDIASTINUM: Normal. No mass or adenopathy. CARDIAC: There is left ventriculomegaly. Calcification within the ventricle is present and a possible etiology. Right internal jugular catheter is present with the tip terminating at the right atrium. Trace pericardial effusion is present. PLEURA: A small right pleural effusion is present. AORTA: Normal. No aneurysm. CHEST WALL: Normal. No mass or axillary adenopathy. LIMITED ABDOMEN: The gallbladder is absent. Surgical clips are present in the gallbladder fossa. BONES: At T10 there is a well marginated 17 mm hypointense focus of possible etiology. Possibility of osseous hemangiomas these. Other etiology cannot be excluded. Further evaluation by MRI or bone scan should be considered. If prior exams including the thoracic spine are available from another institution comparison can be made. Continued Report - Page 2 of 2 Patient: SANDY BRAVO Phone#: : [phone] Age: 53 Gender: F Pt. Type: ER Account: [id number] Location: 052 Ordering: KADE DE LA TORRE Exam Date: 06/07/2018/22:42 Family Phys: MALDONADO DENNY Charge Code: [id number] Physician: Yancey Order #: [id number] DLP Dose#: OTHER: Negative. CONCLUSION: 1. Trace pericardial effusion. 2. Right internal jugular catheters present with the tip terminating at the right atrium. 3. There is a punctate calcification in the left ventricle of questionable etiology. 4. Hypodense focus at T10 there is possibility of osseous hemangioma. Other etiology cannot be excluded. Dictated by: Masha Richardson MD on 06/08/2018 at 8:55 Approved by: Masha Richardson MD on 06/08/2018 at 8:55 EMERGENCY REPORT Observed: 06/07/2018 Status: F Source: [facility] 9:30 PM [facility] EMERGENCY ROOM REPORT NAME ACCOUNT SEX AGE ADMIT DISCHARGE PT MED. RECORD# NUMBER DATE DATE TYPE SANDY BRAVO [id number] F 53 06/07/18 06/08/18 3 [id number] ROOM: ER DATE OF : 1965 DICTATING PHYSICIAN: Kade De La Torre TIME SEEN: 10:15 p.m. CHIEF COMPLAINT/HISTORY OF PRESENT ILLNESS: This is a 53-year-old white female who has complaint of pain to the old port access that she has for dialysis. About 3 weeks ago, her sustainable design consultant had moved it from that site to a site more inferior on the right anterior chest wall. She had been doing fine until about 5 p.m. tonight, it started to become painful. She describes the pain as thumping in nature and rates it as an 8 on a severity scale of 1 to 10. She denies any trauma to the area. Denies any fevers, sweats or chills. PAST MEDICAL HISTORY: Renal failure, hypertension, cdv-cxzvwaf-sopykrrik diabetes. PAST SURGICAL HISTORY: Appendectomy, cholecystectomy, partial hysterectomy, tubal ligation, heart cath in the past. She was admitted within the past few weeks at [facility] for chest pain and did have a stress test at that time. She also had surgery to move her dialysis port access site to a more inferior position on her right anterior chest. ALLERGIES: She is allergic to penicillin, codeine, latex. SOCIAL HISTORY: Patient does not smoke, does not drink alcohol or use illicit drugs. She lives at home with family. REVIEW OF SYSTEMS: Denies any chest pain, shortness of breath, cough, sputum, wheezing, abdominal pain, nausea, vomiting, diarrhea, constipation, melena, hematochezia, headache, numbness, unsteady gait, weakness, neck or back pain, joint pain, skin rash or swelling, hives, hay fever or swollen glands. Does complain of pain to her old catheter access site right anterior chest wall. Further review of systems is negative. PHYSICAL EXAMINATION: Vital Signs: Blood pressure 141/51, pulse 70, respirations 18. Patient is alert and oriented x 3. She presently appears in no acute distress. She is pleasant and cooperative. HEENT: Head appears atraumatic. Pupils are equal and reactive to light. Red reflex is intact bilaterally. Extraocular muscles are intact. No conjunctival injection. Nose exhibits no rhinorrhea or epistaxis. Mouth: Mucous membranes are moist. No pharyngeal erythema. Uvula is midline and elevates. Page 1 of 3 SANDY BRAVO Emergency Room Report Neck is supple. Trachea is midline. No JVD or lymphadenopathy. No posterior cervical tenderness. No nuchal rigidity. Lungs are clear to auscultation in all lung reyes. No adventitious sounds are noted. I do note some Steri-Strips to the initial dialysis port access site to the right anterior chest near the base of the neck. There are some Steri-Strips on there. The site is palpably tender but it is not red or swollen. There is on bleeding or drainage at the site. It does not look swollen to me, it is just tender. There is some palpable induration at the site. No redness, warmth, or erythema. CVS: Heart rate and rhythm regular without murmur. Abdomen is soft and nontender with normoactive bowel sounds x4 quadrants. No guarding or rigidity. No rebound. No palpable abdominal mass. No hepatosplenomegaly. Back exhibits no midline or paraspinal region tenderness. No increased paraspinal muscle rigidity. Negative Oswaldo's sign. Extremities: No edema or cyanosis. Peripheral pulses are intact. No motor or sensory deficits noted. Hand access services librarian is strong and symmetric. Neurologic exam shows the patient to be alert and oriented x4. No motor or sensory deficits are noted. Normal speech. DIAGNOSTIC DATA: I did do a CT scan of the chest without contrast which showed an indwelling right internal jugular dual lumen central venous catheter that extends through the right sternocleidomastoid muscle and the proximal tip lies in the distal SVC. The distal tip extends into the right atrium. No complications are evident. There is no surrounding hemorrhage or hematoma. Mild carotid artery calcification. Relatively diminutive but otherwise unremarkable thyroid gland noting streak artifacts. Unremarkable airway. Unremarkable esophagus. No pneumothorax. Small nonspecific right pleural fluid collection. Mild adjacent airspace consolidation likely reflecting mild compressive atelectasis. Otherwise, no abnormal opacity within the lungs. There are no findings of aspiration or pneumonia. No hilar or mediastinal lymph node enlargement. Nonspecific mixed lytic and sclerotic bone lesion within the T10 vertebral body. If there are no prior studies available to assess this finding, evaluation with an MRI or nuclear medicine bone scan should be considered. White count was 6.0, hemoglobin 10.8, hematocrit 30.4, platelet count was 201,000. Sodium 139, potassium 5.0, chloride 104, CO2 26.2, glucose 154, BUN 46, creatinine 5.6. Liver functions came back within normal limits. Anion gap was normal at 14. EMERGENCY DEPARTMENT COURSE AND TREATMENT: Patient sees Dr. Garcia who is her sustainable design consultant. I do have a page in to him to discuss any further treatment of this site based on the results of the tests I have done here tonight. DIAGNOSIS: Postoperative pain at dialysis catheter removal site. PLAN/DISPOSITION: We did page Dr. Garcia's office and Dr. Lopez was concrete inspector. However, it is 1:30 a.m. and I still have not heard back from them. I spoke with the patient. She would prefer to go home with something for pain and then she will call Dr. Garcia's office tomorrow. Since the CAT scan and blood work were unremarkable as far as this site, we will let her go home and have her follow up. I did ask her to call Dr. Garcia first thing this morning at 9 a.m. and update him on her condition, and see how he would like to proceed. The phone number is [phone]. The patient was Page 2 of 3 SANDY BRAVO Emergency Room Report discharged in a clinically stable condition. Nurses notes were reviewed. Dictated By: Kade De La Torre DO 06/08/18 01:26 JOB #: [id number] Transcribed By: shaina 06/08/18 21:39 Electronically signed by: E-Sign: Dr. Kade De La Torre D.O. 06/15/18 05:58 Page 3 of 3 LAWRENCE SANDY Oneill Emergency Room Report EMERGENCY REPORT Observed: 05/21/2018 Status: F [facility] AM [facility] EMERGENCY ROOM REPORT NAME ACCOUNT SEX AGE ADMIT DISCHARGE PT MED. RECORD# NUMBER DATE DATE TYPE SANDY BRAVO [id number] F 53 05/11/18 05/11/18 3 [id number] ROOM: ER DATE OF : 1965 DICTATING PHYSICIAN: Toni Del Valle ADDYASMIN EMERGENCY DEPARTMENT COURSE AND TREATMENT: I assumed care of this patient upon my arrival. They were able to obtain labs but were unable to get in a peripheral IV. She does have a right subclavian port used for dialysis. She was given an inch of Nitro paste and 4 baby aspirin. Pain improved but did not completely resolve. Her blood pressure did improve as well. Lab studies showed a CBC with an H&H of 10 and 29. CMP: Glucose 119, BUN and creatinine 49 and 5.3, otherwise normal. Her troponin was 0.02. Chest x-ray was unremarkable. DIAGNOSIS: Chest pain, rule out heart disease. Patient presents with chest pain, known coronary artery disease and other risk factors. PLAN/DISPOSITION: Discussed management with her. Advised transport to a hospital in [place]. She states she has been to [facility] previously. I attempted to reach Dr. Mullins but was unable to reach him. We did talk to the hospitalist at [facility] who accepted the patient. Dictated By: Toni Del Valle MD 05/11/18 09:33 JOB #: [id number] Transcribed By: shaina 05/11/18 22:03 Electronically signed by: LUIS F Del Valle M.D. 05/21/18 07:00 Page 1 of 1 SANDY BRAVO Emergency Room Report CBC W/DIFF Collected: 05/16/2018 Status: F Source: [facility] 6:46 AM [facility] REPOSITORY Order Comment: [place]: TYPE CODE TESTS RESULT OUT OF RANGE REFERENCE UNITS LAB L200.83415 4.5-11.0 K/CU MM WBC Normal 6.7 LAB L200.12372 3.90-5.30 M/CU MM Low RBC 3.43 LAB L200.02830 11.5-15.5 G/DL Low HGB 10.2 LAB L200.05738 35.0-47.0 % Low HCT 30.8 LAB L200.37518 80.0-99.0 fl MCV Normal 89.8 LAB L200.15829 32.0-36.0 GM/DL MCHC Normal 33.1 LAB L200.97831 11-14.5 RDW Normal 13.7 LAB L200.42649 9.4-12.4 Low MPV 9.3 LAB L200.41124 150-450 K/CU MM PLT Normal 184 LAB L200.51232 45-75 % NEUTROPHILS Normal % 63.9 LAB L200.13327 Less than 2 % IMMATURE Normal GRAN % 0.4 LAB L200.57026 20-40 % LYMPH % Normal 23.4 LAB L200.32173 2-10 % MONOCYTE % Normal 8.8 LAB L200.35696 0-5 % EOSINOPHIL Normal % 2.5 LAB L200.63985 0-2 % BASOPHIL % Normal 1.0 LAB L200.14823 2.0-8.3 K/CU MM NEUTROPHIL Normal ABS 4.30 LAB L200.45926 Less than 2 K/CU MM IMMATR GRAN Normal ABS 0.00 LAB L200.96256 0.9-4.4 K/CU MM LYMPH ABS Normal 1.60 LAB L200.10568 0.1-1.1 K/CU MM MONO ABS Normal 0.60 LAB L200.74427 0-0.5 K/CU MM EOS ABS Normal 0.20 LAB L200.47956 0-0.2 K/CU MM BASO ABS Normal 0.10 LAB L200.49621 Less than 1 % NRBC Normal 0.3 Performed By: #### L200.79814 #### [facility] [address] [place] [address] BMP Collected: 05/16/2018 Status: F Source: [facility] 6:46 AM [facility] REPOSITORY Order Comment: [place]: M TYPE CODE TESTS RESULT OUT OF RANGE REFERENCE UNITS LAB L500.31261 136-145 MMOL/L Low NA 135 LAB L500.59206 3.5-5.1 MMOL/L Normal K 4.2 LAB L500.76168 98-107 MMOL/L Normal CL 99 LAB L500.20119 21-32 MMOL/L Normal CO2 28 LAB L500.16452 5-16 MMOL/L Normal AGAP 8 LAB L500.20579 70-100 MG/DL High GLU 288 Result Comment: 70-100- Normal Fasting; 100-125 Impaired Fasting; greater than 126 on more than one result- Diabetes. ADA guidelines. Results may be falsely elevated after the administration of Sulfapyridine. Results may be falsely depressed after the administration of Sulfasalazine. LAB L500.79479 7-26 MG/DL High BUN 31 LAB L500.58018 0.510-0.950 MG/DL High CREAT 4.080 Result Comment: Patients receiving either N-Acetylcysteine (NAC) or Metamizole prior to venipuncture, may have falsely depressed results. LAB L500.93588 15-24 Low BUN/CREA 8 LAB L500.11654 8.5-10.1 MG/DL Normal CALCIUM TOTAL 9.5 Performed By: #### L500.60404, L500.50039 #### [facility] [address] [place] [address] GFR EST Collected: 05/16/2018 Status: F Source: [facility] 6:46 AM [facility] REPOSITORY Order Comment: [place]: M TYPE CODE TESTS RESULT OUT OF RANGE REFERENCE UNITS LAB L500.94517 ML/MIN Normal IF non-AFR 11 AMER LAB L500.15564 ML/MIN Normal IF 14 AMER Performed By: #### L500.32764, L500.84027 #### [facility] [address] [place] [address] GLUCOSE METER Collected: 05/15/2018 Status: F Source: [facility] 6:24 PM [facility] REPOSITORY TYPE CODE TESTS RESULT OUT OF REFERENCE UNITS RANGE LAB L500.12761 85-125 MG/DL High GLUCOSE METER 132 DISCH.SUM Observed: 05/15/2018 Status: UNK Source: [facility] 1:52 PM [facility] REPOSITORY [facility] Patient Name: SANDY BRAVO [address] [facility] [address] Date of : [address] [place] [address] Unit Number: [id number] Discharge Summary Patient Status: ADM Laith Attending Doctor: Anderson Rubio MD Service Date: 05/15/18 1352 Discharge Summary Admit Date Admission Date Time: 05/11/18 1301 Anticipated Discharge Date 05/15/18 Final Dx/Problem List 1. Chest pain On Mon 2:03p May 14, 2018 ANDERSON RUBIO wrote Assessment and plan Chest pain with abnormal stress test. Coronary artery disease. Patient underwent cardiac catheterization this morning.FINDINGS: 1. Left main: No significant disease. 2. LAD: There is mild diffuse disease in the distal LAD. There also is disease in the diagonal branch which is mild and diffuse. 3. Left circumflex: No significant disease in the circumflex until down to the distal portion. After the takeoff of a large second OM, in the circumflex proper, there is a stenosis of roughly 60% at the ostium. This is a small artery. 4. Ramus intermedius: This is a small artery. There is a high-grade lesion of only 70% at the ostium. 5. RCA: Large dominant artery. No significant blockage is seen. There is a mild 30% stenosis proximally. 6. LV function: Ejection fraction was hyperdynamic with EF of 70% to 75%. This is diastolic dysfunction. Recommended medical management per cardiology. Patient started on Imdur. Currently chest pain-free. On beta chris, aspirin Insulin-dependent diabetes mellitus continue home medications with sliding scale insulin and diabetic diet Hypertension Depression, hyperlipidemia and hypothyroidism Acute on chronic anemia Chief Complaint/HPI Chest pain Reason for Admission History of Present Illness Patient is a 53-year-old female end-stage renal disease on hemodialysis, nephrotic syndrome, diabetes mellitus was transferred from [facility]. Patient presented to [facility] with chest pain. Patient states it started yesterday and was on and off and this morning it progress it to the point it was like 10 over 10 as though a different sitting on her chest associated with some shortness of breath, nausea she did have increases 1 time no diaphoresis. Patient evaluated in the ER at [facility]. Troponins negative. Patient was transferred to [facility] for further cardiac evaluation. Currently patient denies any chest pain. ER physician from [facility] mentioned that chest pain responded to nitroglycerin. Patient had cardiac catheterization long time back with the no occlusive coronary artery disease at that time. Has had no further cardiac workup after that. Past Medical/Surgical Hx Past Medical History Insulin-dependent diabetes with nephropathy retinopathy and neuropathy, coronary artery disease, hypertension, depression, hyperlipidemia and hypothyroidism Hospital Course Patient admitted to the telemetry floor. Underwent cardiac stress test. Reported abnormal. Patient seen by cardiology consult. Dr. OTERO. Underwent cardiac catheterization. Recommended medical management. Imdur was added. Patient became hypotensive during dialysis. Improved later. Patient hemoglobin dropped. Patient is receiving PRBC transfusion. Patient seen by nephrology consult. Hemodialysis was to resume her during hospitalization. Patient today denies chest pain no shortness of breath. Wants to go home. Patient will be discharged home if okay with cardiology. After PRBC transfusion. Activity restrictions per cardiology. A shunt to follow postcardiac catheterization instructions. Vital Signs Vital Signs (Last) Result Date Time Pulse Ox 98 05/15 1000 B/P 130/57 05/15 1000 Temp 98.2 05/15 1000 Pulse 70 05/15 1000 Resp 16 05/15 1000 O2 Delivery ROOM AIR 05/14 1640 Pertinent Physical Findings On examination HEENT pupils are equal and reactive to light and accommodation. No pallor. No icterus Neck is supple Cardiovascular system S1-S2 normal. Systolic murmur heard Chest clear bilateral Abdomen soft . Nontender. Bowel sounds present. Right groin dressing is seen Extremities trace edema bilateral lower extremities Patient is alert awake oriented to time place person No distress Consults Cardiology, Nephrology Labs/Imaging Lab 72hr ([facility] 05/15/18 1104: Whole Bld Glucose 323 H 05/15/18 0735: Whole Bld Glucose 241 H 05/15/18 0437: [Embedded Image Not Available] Anion Gap 8, Est GFR ( Amer) 14, Est GFR (Non-Af Amer) 12, BUN/Creatinine Ratio 9 L , Glucose 244 H, Total Calcium 8.8, RBC 2.72 L, MCV 89.7, MCHC 33.2, RDW 12.8, MPV 9.1 L, Immature Gran % (Auto) 0.4, Abs Immat Gran (auto) 0.00, Seg Neutrophils % 56.9, Lymphocytes % 29.7, Monocytes % 9.9, Eosinophils % 2.4, Basophils % 0.7, Neutrophils # 3.10, Lymphocytes # 1.60, Monocytes # 0.50, Eosinophils # 0.10, Basophils # 0.00, Nucleated RBCs 0.0 05/14/18 2152: Whole Bld Glucose 292 H 05/14/18 1620: Whole Bld Glucose 206 H 05/14/18 1240: Whole Bld Glucose 158 H 05/14/18 0706: Whole Bld Glucose 284 H 05/14/18 0638: [Embedded Image Not Available] 05/14/18 0453: [Embedded Image Not Available] Anion Gap 12, Est GFR ( Amer) 9, Est GFR (Non-Af Amer) 7, BUN/Creatinine Ratio 9 L, Glucose 234 H, Total Calcium 9.4, RBC 3.09 L, MCV 88.7, MCHC 33.2, RDW 12.7, MPV 9.4, Immature Gran % (Auto) 2.5, Abs Immat Gran (auto) 0.20, Seg Neutrophils % 50.4, Lymphocytes % 35.8, Monocytes % 7.2, Eosinophils % 2.8, Basophils % 1.3, Neutrophils # 3.60, Lymphocytes # 2.50, Monocytes # 0.50, Eosinophils # 0.20, Basophils # 0.10, Nucleated RBCs 0.3 05/13/18 2125: Whole Bld Glucose 228 H 05/13/18 1635: Whole Bld Glucose 254 H 05/13/18 1134: Whole Bld Glucose 263 H 05/13/18 0743: Whole Bld Glucose 169 H 05/13/18 0647: [Embedded Image Not Available] Anion Gap 8, Est GFR ( Amer) 11, Est GFR (Non-Af Amer) 9, BUN/Creatinine Ratio 8 L, Glucose 161 H, Total Calcium 9.1, Iron 90, TIBC 305, Iron Saturation 30, RBC 3.06 L, MCV 91.5, MCHC 32.5, RDW 12.7, MPV 9.1 L, Immature Gran % (Auto) 0.2, Abs Immat Gran (auto) 0.00, Seg Neutrophils % 55.5, Lymphocytes % 32.5, Monocytes % 7.9, Eosinophils % 2.7, Basophils % 1.2, Neutrophils # 2.90, Lymphocytes # 1.70, Monocytes # 0.40, Eosinophils # 0.10, Basophils # 0.10, Nucleated RBCs 0.0 05/13/18 0600: Sodium Cancelled, Potassium Cancelled, Chloride Cancelled, Carbon Dioxide Cancelled, Anion Gap Cancelled, BUN Cancelled, Creatinine Cancelled, BUN/Creatinine Ratio Cancelled, Glucose Cancelled, Total Calcium Cancelled, Iron Cancelled, TIBC Cancelled, Iron Saturation Cancelled 05/13/18 0527: Sodium Cancelled, Potassium Cancelled, Chloride Cancelled, Carbon Dioxide Cancelled, Anion Gap Cancelled, BUN Cancelled, Creatinine Cancelled, BUN/Creatinine Ratio Cancelled, Glucose Cancelled, Total Calcium Cancelled, Iron Cancelled, TIBC Cancelled, Iron Saturation Cancelled, WBC Cancelled, RBC Cancelled, Hgb Cancelled, Hct Cancelled, MCV Cancelled, MCHC Cancelled, RDW Cancelled, Plt Count Cancelled, Seg Neutrophils % Cancelled 05/12/18 2151: Whole Bld Glucose 294 H 05/12/18 1622: Whole Bld Glucose 118 Prescriptions Continue taking these medications: metoprolol TARTRATE* (Lopressor 50MG Tab*) 50 MG TABLET 50 MILLIGRAM ORAL 2 TIMES DAILY Levothyroxine Sodium* (Synthroid 0.112MG Tab*) 112 MCG TABLET 0.112 MILLIGRAM ORAL ONCE DAILY BEFORE MEALS Atorvastatin Calcium* (Lipitor 40MG Tab*) 40 MG TABLET 40 MILLIGRAM ORAL AT BEDTIME Aspirin* (Aspir 81 MG Tab*) 81 MG TABLET.DR 81 MILLIGRAM ORAL DAILY WITH A MEAL Instructions: TO CONTINUE FOR PROCEDURE PER 'S INSTRUCTIONS Insulin Aspart (Novolog) 100 UNIT/1 ML VIAL 8 UNITS 3 TIMES DAILY BEFORE MEALS amLODIPine BESYLATE* (Norvasc 5MG Tab*) 5 MG TABLET 10 MILLIGRAM ORAL EVERY DAY cloNIDine HCL* (Catapres 0.2MG Tab*) 0.2 MG TABLET 0.3 MILLIGRAM ORAL 2 TIMES DAILY Folic Acid/Vitamin B Comp W-C* (Nephrocaps Softgel*) 1 MG CAPSULE 1 CAPSULE ORAL EVERY DAY Calcium Acetate* (Phoslo cap*) 667 MG CAPSULE 1,334 MILLIGRAM ORAL 3 TIMES DAILY WITH MEALS Insulin Degludec (Tresiba Flextouch U-100) 100 UNIT/1 ML INSULN.PEN 40 UNIT SUB-Q AT BEDTIME Start taking the following new medications: Isosorbide Mononitrate* (Imdur 30 MG Tab SA*) 30 MG TAB.SR.24H 30 MILLIGRAM ORAL EVERY DAY Qty = 30 Refills = AD Nitroglycerin (Nitroquick) 0.4 MG TAB.SUBL 0.4 MILLIGRAM SUBLINGUAL EVERY 5 MINUTES NEEDED as needed for Angina Qty = 1 No Refills Referrals Ordered Referrals Cardiology Referral In One-Two Weeks For Providers: Jc Otero MD [address] [facility] [address] [address] [id number] Condition: Stable Disposition Home Phys Discharge Time Incur(Min) 35 Disclaimer This dictation was created using voice recognition software. Phonetic and/or minor grammatical errors may exist. eSign Date and Time Anderson Rubio MD Verified/Reviewed by 05/15/18 [id number] PROG.NEPH Observed: 05/15/2018 Status: UNK Source: [facility] 1:17 PM [facility] Patient Name: SANDY BRAVO [address] [facility] Date of : [address] [place] [address] Unit Number: [id number] Progress Note-Nephrology Patient Status: ADM Laith Attending Doctor: Anderson Rubio MD Service Date: 05/15/18 0347 Progress Note-Nephrology([facility]) Subjective Subjective: pt feels good only ambulating in the room no more chest pain Objective Vital Signs: Vital Signs (Last) Result Date Time Pulse Ox 98 05/15 1000 B/P 130/57 05/15 1000 Temp 98.2 05/15 1000 Pulse 70 05/15 1000 Resp 16 05/15 1000 O2 Delivery ROOM AIR 05/14 1640 IandO 24 Hour Summary 05/15 0000 Intake Total 680 Output Total 2200 Balance -1520 Intake, Oral 680 Number 2 Unmeasured Voids Output, Other 1300 Output, Stool 0 Output, Urine 900 Patient 153 lb Weight Exam: AAOx3 No pallor/Icterus No JVD appreciated. Chest equal in expansion. No rales/rhonchi appreciated. S1S2 heard. No murmur/rub appreciated. Abd soft. Non-distended. Non-tender. Bowel sounds heard. Bilateral lower extremities: No edema/cyanosis. Central Access: Medications: Medications Current Sig/Lyn Start time Last Medication Dose Route Stop Time Status Admin Acetaminophen 650 MG Q4HPRN PRN 05/14 09 AC (TYLENOL TAB) PO Amlodipine Besylate 10 MG QDAY 05/12 0900 AC 05/15 (NORVASC TAB) PO 0917 Aspirin 81 MG QDAYWM 05/14 0857 AC 05/15 (ECOTRIN TAB.EC) PO 0914 Atorvastatin Calcium 20 MG QHS 05/14 2200 AC 05/14 (LIPITOR TAB) PO 2302 Calcium Acetate 1,334 MG TIDWM 05/11 1700 AC 05/15 (PHOSLO TAB) PO 1224 Clonidine HCl 0.3 MG BID 05/11 2100 AC 05/15 (CATAPRES TAB) PO 0916 Epoetin Jorge 20,000 UNIT ONCALL PRN 05/12 0900 AC (Procrit/Epogen Vial) IV Heparin Sodium 5,000 UNIT BID 05/11 2100 AC 05/15 (Porcine) SC 0916 (HEPARIN D.SYR) Hydrocodone Bitart/ 1 EACH Q6HPRN PRN 05/11 1900 AC 05/11 Acetaminophen PO 190 (NORCO 5-325 TAB) Insulin Human Lispro See Dose WMHS 05/11 1700 AC 05/15 (humaLOG/novoLOG PEN) Insts (1) SC 1128 Isosorbide 30 MG QDAY 05/14 0930 AC 05/15 Mononitrate PO 09 (IMDUR TAB.SA) Levothyroxine Sodium 0.112 MG QDAYAC 05/12 0700 AC 05/15 (SYNTHROID TAB) PO 0549 Melatonin 3 MG QHSPRN PRN 05/14 0030 AC 05/14 (MELATONIN TAB) PO 215 Metoprolol Tartrate 5 MG Q4HPRN PRN 05/12 1500 AC 05/12 (LOPRESSOR AMP) IV 1814 Metoprolol Tartrate 50 MG BID 05/11 2100 AC 05/15 (LOPRESSOR TAB) PO 09 Nitroglycerin 0.4 MG Q5MPRN PRN 05/11 1400 AC (NITROSTAT 0.4MG SL TAB.SL) Sodium Chloride 1,000 ML ONCE 05/14 900 AC (Sodium Chloride IV 0.9%) Vitamin B Complex/ 1 CAP QDAY 05/12 09 AC 05/15 Folic Acid PO 916 (NEPHROCAPS/ NEPHROVITE CAP) Dose Instructions: (1)Insulin Human Lispro (humaLOG/novoLOG PEN): 1-5 Units Lab Results: Lab 24hr (CBC/BMP [facility]) 05/15/18 1104: Whole Bld Glucose 323 H 05/15/18 0735: Whole Bld Glucose 241 H 05/15/18 0437: [Embedded Image Not Available] Anion Gap 8, Est GFR ( Amer) 14, Est GFR (Non-Af Amer) 12, BUN/Creatinine Ratio 9 L , Glucose 244 H, Total Calcium 8.8, RBC 2.72 L, MCV 89.7, MCHC 33.2, RDW 12.8, MPV 9.1 L, Immature Gran % (Auto) 0.4, Abs Immat Gran (auto) 0.00, Seg Neutrophils % 56.9, Lymphocytes % 29.7, Monocytes % 9.9, Eosinophils % 2.4, Basophils % 0.7, Neutrophils # 3.10, Lymphocytes # 1.60, Monocytes # 0.50, Eosinophils # 0.10, Basophils # 0.00, Nucleated RBCs 0.0 05/14/18 2152: Whole Bld Glucose 292 H 05/14/18 1620: Whole Bld Glucose 206 H Assessment/Plan Assessment/Problem List: 1. Chest pain heart cath yesterday 2. ESRD (end stage renal disease) [facility] is to have avf manipulation tomorrow - she doesn't know what time to have perm cath replacement will dialyze today for volume and to get blood and in case she cannot make her dialysis tomorrow,. 3. Anemia to be transfused today w dialysis epo yest w dialysis 4. Hypertension bp well controlled 5. Hyperkalemia Disclaimer This dictation was created using voice recognition software. Phonetic and/or minor grammatical errors may exist. eSign Date and Time Arthur Ibrahim MD Verified/Reviewed by 05/15/18 1320 GLUCOSE METER Collected: 05/15/2018 Status: F Source: [facility] 11:04 AM [facility] REPOSITORY TYPE CODE TESTS RESULT OUT OF REFERENCE UNITS RANGE LAB L500.72700 85-125 MG/DL High GLUCOSE METER 323 GLUCOSE METER Collected: 05/15/2018 Status: F Source: [facility] 7:35 AM [facility] REPOSITORY TYPE CODE TESTS RESULT OUT OF REFERENCE UNITS RANGE LAB L500.21255 85-125 MG/DL High GLUCOSE METER 241 CBC W/DIFF Collected: 05/15/2018 Status: F Source: [facility] 4:37 AM [facility] REPOSITORY Order Comment: [place]: M TYPE CODE TESTS RESULT OUT OF RANGE REFERENCE UNITS LAB L200.99497 4.5-11.0 K/CU MM WBC Normal 5.5 LAB L200.88358 3.90-5.30 M/CU MM Low RBC 2.72 LAB L200.77902 11.5-15.5 G/DL Low HGB 8.1 LAB L200.03125 35.0-47.0 % Low HCT 24.4 LAB L200.82161 80.0-99.0 fl MCV Normal 89.7 LAB L200.09867 32.0-36.0 GM/DL MCHC Normal 33.2 LAB L200.27844 11-14.5 RDW Normal 12.8 LAB L200.47446 9.4-12.4 Low MPV 9.1 LAB L200.21619 150-450 K/CU MM PLT Normal 163 LAB L200.27515 45-75 % NEUTROPHILS Normal % 56.9 LAB L200.44792 Less than 2 % IMMATURE Normal GRAN % 0.4 LAB L200.87695 20-40 % LYMPH % Normal 29.7 LAB L200.18917 2-10 % MONOCYTE % Normal 9.9 LAB L200.40056 0-5 % EOSINOPHIL Normal % 2.4 LAB L200.70872 0-2 % BASOPHIL % Normal 0.7 LAB L200.31396 2.0-8.3 K/CU MM NEUTROPHIL Normal ABS 3.10 LAB L200.07505 Less than 2 K/CU MM IMMATR GRAN Normal ABS 0.00 LAB L200.66309 0.9-4.4 K/CU MM LYMPH ABS Normal 1.60 LAB L200.10096 0.1-1.1 K/CU MM MONO ABS Normal 0.50 LAB L200.00292 0-0.5 K/CU MM EOS ABS Normal 0.10 LAB L200.22973 0-0.2 K/CU MM BASO ABS Normal 0.00 LAB L200.91692 Less than 1 % NRBC Normal 0.0 Performed By: #### L200.12062 #### [facility] [address] [place] [address] BMP Collected: 05/15/2018 Status: F Source: [facility] 4:37 AM [facility] REPOSITORY Order Comment: [place]: TYPE CODE TESTS RESULT OUT OF RANGE REFERENCE UNITS LAB L500.76568 136-145 MMOL/L Normal NA 137 LAB L500.58536 3.5-5.1 MMOL/L Normal K 4.0 LAB L500.41303 98-107 MMOL/L Normal CL 99 LAB L500.78879 21-32 MMOL/L Normal CO2 29 LAB L500.43799 5-16 MMOL/L Normal AGAP 8 LAB L500.62867 70-100 MG/DL High GLU 244 Result Comment: 70-100- Normal Fasting; 100-125 Impaired Fasting; greater than 126 on more than one result- Diabetes. ADA guidelines. Results may be falsely elevated after the administration of Sulfapyridine. Results may be falsely depressed after the administration of Sulfasalazine. LAB L500.16680 7-26 MG/DL High BUN 34 LAB L500.81920 0.510-0.950 MG/DL High CREAT 3.970 Result Comment: Patients receiving either N-Acetylcysteine (NAC) or Metamizole prior to venipuncture, may have falsely depressed results. LAB L500.17928 15-24 Low BUN/CREA 9 LAB L500.18509 8.5-10.1 MG/DL Normal CALCIUM TOTAL 8.8 Performed By: #### L500.90389, L500.73604 #### [facility] [place] [address] GFR EST Collected: 05/15/2018 Status: F Source: [facility] 4:37 AM [facility] REPOSITORY Order Comment: [place]: TYPE CODE TESTS RESULT OUT OF RANGE REFERENCE UNITS LAB L500.87182 ML/MIN Normal IF non-AFR 12 AMER LAB L500.96699 ML/MIN Normal IF 14 AMER Performed By: #### L500.93563, L500.30065 #### [facility] [address] [place] [address] TS Collected: 05/15/2018 Status: F Source: [facility] 4:37 AM [facility] REPOSITORY Order Comment: [place]: M Tranfuse Now? Y Non - Acute Hemorrhage Indication: Hgb<8 w ACS/EKG chg/CP Irradiated: N Washed: N Transfuse slowly @ 60mL/hr x15min, then increase to infuse: Over 4 Hours TYPE CODE TESTS RESULT OUT OF RANGE REFERENCE UNITS LAB B100.0400 A Normal BLOOD TYPE POSITIVE LAB B100.0680 Normal ANTIBODY NEGATIVE SCREEN RBC NO ACT Collected: 05/15/2018 Status: F Source: [facility] 4:37 AM [facility] REPOSITORY TYPE CODE TESTS RESULT OUT OF REFERENCE UNITS RANGE LAB U800.0005 RBC TRANSFUSED NO ACT PRODUCT: RBC NO ACTIVE BLEED COUNT: 1 GLUCOSE METER Collected: 05/14/2018 Status: F Source: [facility] 9:52 PM [facility] REPOSITORY TYPE CODE TESTS RESULT OUT OF REFERENCE UNITS RANGE LAB L500.89247 85-125 MG/DL High GLUCOSE METER 292 GLUCOSE METER Collected: 05/14/2018 Status: F Source: [facility] 4:20 PM [facility] REPOSITORY TYPE CODE TESTS RESULT OUT OF REFERENCE UNITS RANGE LAB L500.24771 85-125 MG/DL High GLUCOSE METER 206 PROG IMS Observed: 05/14/2018 Status: UNK Source: [facility] 2:00 PM [facility] REPOSITORY [facility] Patient Name: SANDY BRAVO [address] [facility] Date of : [address] [id number] Unit Number: [id number] Progress Note-Hospitalist Patient Status: ADM Laith Attending Doctor: Anderson Rubio MD Service Date: 05/14/18 1400 Chief Complaint Chief Complaint Chest pain Subjective S: (2 ROS minimum) Patient seen in hemodialysis. Feeling lightheaded. Blood pressure recorded 80s over 60s. Patient is being given fluid bolus. Blood pressure improved to 150s now. Patient denies shortness of breath no chest pain. Objective (ROS) Nursing Vitals Vital Signs (Last) Result Date Time Pulse Ox 98 05/14 075 B/P 142/62 05/14 0756 Temp 97.6 05/14 0756 Pulse 74 05/14 0756 Resp 18 05/14 0756 O2 Delivery ROOM AIR 05/11 1814 On examination HEENT pupils are equal and reactive to light and accommodation. No pallor. No icterus Neck is supple Cardiovascular system S1-S2 normal. Systolic murmur heard Chest clear bilateral Abdomen soft . Nontender. Bowel sounds present. Right groin dressing is seen Extremities trace edema bilateral lower extremities Patient is alert awake oriented to time place person No distress Diagnostic Data: Lab 24hr (CBC/BMP [facility]) 05/14/18 1240: Whole Bld Glucose 158 H 05/14/18 0706: Whole Bld Glucose 284 H 05/14/18 0638: [Embedded Image Not Available] 05/14/18 0453: [Embedded Image Not Available] Anion Gap 12, Est GFR ( Amer) 9, Est GFR (Non-Af Amer) 7, BUN/Creatinine Ratio 9 L, Glucose 234 H, Total Calcium 9.4, RBC 3.09 L, MCV 88.7, MCHC 33.2, RDW 12.7, MPV 9.4, Immature Gran % (Auto) 2.5, Abs Immat Gran (auto) 0.20, Seg Neutrophils % 50.4, Lymphocytes % 35.8, Monocytes % 7.2, Eosinophils % 2.8, Basophils % 1.3, Neutrophils # 3.60, Lymphocytes # 2.50, Monocytes # 0.50, Eosinophils # 0.20, Basophils # 0.10, Nucleated RBCs 0.3 05/13/18 2125: Whole Bld Glucose 228 H 05/13/18 1635: Whole Bld Glucose 254 H Assessment and Plan Conclusion 1. Chest pain Assessment and plan Chest pain with abnormal stress test. Coronary artery disease. Patient underwent cardiac catheterization this morning.FINDINGS: 1. Left main: No significant disease. 2. LAD: There is mild diffuse disease in the distal LAD. There also is disease in the diagonal branch which is mild and diffuse. 3. Left circumflex: No significant disease in the circumflex until down to the distal portion. After the takeoff of a large second OM, in the circumflex proper, there is a stenosis of roughly 60% at the ostium. This is a small artery. 4. Ramus intermedius: This is a small artery. There is a high-grade lesion of only 70% at the ostium. 5. RCA: Large dominant artery. No significant blockage is seen. There is a mild 30% stenosis proximally. 6. LV function: Ejection fraction was hyperdynamic with EF of 70% to 75%. This is diastolic dysfunction. Recommended medical management per cardiology. Patient started on Imdur. Currently chest pain-free. On beta chris, aspirin Insulin-dependent diabetes mellitus continue home medications with sliding scale insulin and diabetic diet Hypertension continue home medication. Blood pressure is better. Continue current medications. Patient reports that sometimes during dialysis her blood pressure drops low. Depression, hyperlipidemia and hypothyroidism continue medication Chronic anemia stable DVT prophylaxis with heparin subcutaneous Hyperkalemia patient is currently getting hemodialysis DC home in a.m. if stable Disclaimer This dictation was created using voice recognition software. Phonetic and/or minor grammatical errors may exist. eSign Date and Time Anderson Rubio MD Verified/Reviewed by 05/14/18 1403 GLUCOSE METER Collected: 05/14/2018 Status: F Source: [facility] 12:40 PM [facility] REPOSITORY TYPE CODE TESTS RESULT OUT OF REFERENCE UNITS RANGE LAB L500.98406 85-125 MG/DL High GLUCOSE METER 158 PROG.NEPH Observed: 05/14/2018 Status: UNK Source: [facility] 7:21 AM [facility] REPOSITORY [facility] Patient Name: SANDY BRAVO [address] [employer] Date of : [address] [address] Unit Number: [id number] Progress Note-Nephrology Patient Status: ADM Laith Attending Doctor: Anderson Rubio MD Service Date: 05/14/18720 Progress Note-Nephrology([facility]) Subjective Subjective: no more chest pain through the night breathing comfortably lying flat Objective Vital Signs: Vital Signs (Last) Result Date Time Pulse Ox 98 05/14 644 B/P 142/62 05/14 644 Temp 97.6 05/14 644 Pulse 74 05/14 0644 Resp 18 05/14 644 O2 Delivery ROOM AIR 05/11 1814 IandO 24 Hour Summary 05/14 0000 Intake Total 1460 Output Total 800 Balance 660 Intake, Oral 1460 Number 1 Unmeasured Voids Output, Stool 0 Output, Urine 800 Patient 152 lb Weight Exam: AAOx3 No pallor/Icterus No JVD appreciated. Chest equal in expansion. No rales/rhonchi appreciated. S1S2 heard. No murmur/rub appreciated. Abd soft. Non-distended. Non-tender. Bowel sounds heard. Bilateral lower extremities: No edema/cyanosis. Central Access: Medications: Medications Current Sig/Lyn Start time Last Medication Dose Route Stop Time Status Admin Amlodipine Besylate 10 MG QDAY 05/12 0900 AC 05/13 (NORVASC TAB) PO 0831 Aspirin 325 MG QDAYWM 05/12 0800 AC 05/13 (ECOTRIN TAB.EC) PO 0831 Atorvastatin Calcium 40 MG QHS 05/11 2200 AC 05/13 (LIPITOR TAB) PO 2126 Calcium Acetate 1,334 MG TIDWM 05/11 1700 AC 05/13 (PHOSLO TAB) PO 1635 Clonidine HCl 0.3 MG BID 05/11 2100 AC 05/13 (CATAPRES TAB) PO 212 Epoetin Jorge 20,000 UNIT ONCALL PRN 05/12 0900 AC (Procrit/Epogen Vial) IV Heparin Sodium 5,000 UNIT BID 05/11 2100 AC 05/13 (Porcine) SC 212 (HEPARIN D.SYR) Hydrocodone Bitart/ 1 EACH Q6HPRN PRN 05/11 1900 AC 05/11 Acetaminophen PO 190 (NORCO 5-325 TAB) Insulin Human Lispro See Dose [facility] 05/11 1700 AC 05/13 (humaLOG/novoLOG PEN) Insts (1) SC 212 Levothyroxine Sodium 0.112 MG QDAYAC 05/12 0700 AC 05/14 (SYNTHROID TAB) PO 0546 Melatonin 3 MG QHSPRN PRN 05/14 0030 AC 05/14 (MELATONIN TAB) PO 0021 Metoprolol Tartrate 5 MG Q4HPRN PRN 05/12 1500 AC 05/12 (LOPRESSOR AMP) IV 1814 Metoprolol Tartrate 50 MG BID 05/11 2100 AC 05/13 (LOPRESSOR TAB) PO 2126 Nitroglycerin 1 INCH Q6H 05/12 1700 AC 05/14 (NITRO-BID T.OINT) TD 0546 Nitroglycerin 0.4 MG Q5MPRN PRN 05/11 1400 AC (NITROSTAT 0.4MG SL TAB.SL) Vitamin B Complex/ 1 CAP QDAY 05/12 0900 AC 05/13 Folic Acid PO 0831 (NEPHROCAPS/ NEPHROVITE CAP) Dose Instructions: (1)Insulin Human Lispro (humaLOG/novoLOG PEN): 1-5 Units Lab Results: Lab 24hr (CBC/BMP [facility]) 05/14/18 0638: [Embedded Image Not Available] 05/14/18 0453: [Embedded Image Not Available] Anion Gap 12, Est GFR ( Amer) 9, Est GFR (Non-Af Amer) 7, BUN/Creatinine Ratio 9 L, Glucose 234 H, Total Calcium 9.4, RBC 3.09 L, MCV 88.7, MCHC 33.2, RDW 12.7, MPV 9.4, Immature Gran % (Auto) 2.5, Abs Immat Gran (auto) 0.20, Seg Neutrophils % 50.4, Lymphocytes % 35.8, Monocytes % 7.2, Eosinophils % 2.8, Basophils % 1.3, Neutrophils # 3.60, Lymphocytes # 2.50, Monocytes # 0.50, Eosinophils # 0.20, Basophils # 0.10, Nucleated RBCs 0.3 05/13/18 2125: Whole Bld Glucose 228 H 05/13/18 1635: Whole Bld Glucose 254 H 05/13/18 1134: Whole Bld Glucose 263 H 05/13/18 0743: Whole Bld Glucose 169 H Assessment/Plan Assessment/Problem List: 1. Chest pain for heart cath today 2. ESRD (end stage renal disease) dialysis today 3. Anemia epo w dialysis 4. Hypertension bp controlled 5. Hyperkalemia will dose some kayexalate correct w dialysis may not want to cath w high k Disclaimer This dictation was created using voice recognition software. Phonetic and/or minor grammatical errors may exist. eSign Date and Time Arthur Ibrahim MD Verified/Reviewed by 05/14/18 0723 GLUCOSE METER Collected: 05/14/2018 Status: F Source: [facility] 7:06 AM [facility] REPOSITORY TYPE CODE TESTS RESULT OUT OF REFERENCE UNITS RANGE LAB L500.35179 85-125 MG/DL High GLUCOSE METER 284 K Collected: 05/14/2018 Status: F Source: [facility] 6:38 AM [facility] REPOSITORY Order Comment: [place]: M TYPE CODE TESTS RESULT OUT OF RANGE REFERENCE UNITS LAB L500.62620 3.5-5.1 MMOL/L High K 5.6 Performed By: #### L500.77831 #### [facility] [address] [place] [address] CBC W/DIFF Collected: 05/14/2018 Status: F Source: [facility] 4:53 AM [facility] REPOSITORY Order Comment: [place]: M TYPE CODE TESTS RESULT OUT OF RANGE REFERENCE UNITS LAB L200.68371 4.5-11.0 K/CU MM WBC Normal 7.1 LAB L200.32745 3.90-5.30 M/CU MM Low RBC 3.09 LAB L200.85191 11.5-15.5 G/DL Low HGB 9.1 LAB L200.67313 35.0-47.0 % Low HCT 27.4 LAB L200.32685 80.0-99.0 fl MCV Normal 88.7 LAB L200.23140 32.0-36.0 GM/DL MCHC Normal 33.2 LAB L200.83078 11-14.5 RDW Normal 12.7 LAB L200.90988 9.4-12.4 MPV Normal 9.4 LAB L200.69201 150-450 K/CU MM PLT Normal 188 LAB L200.77298 45-75 % NEUTROPHILS Normal % 50.4 LAB L200.75064 Less than 2 % IMMATURE Normal GRAN % 2.5 LAB L200.21111 20-40 % LYMPH % Normal 35.8 LAB L200.59649 2-10 % MONOCYTE % Normal 7.2 LAB L200.67510 0-5 % EOSINOPHIL Normal % 2.8 LAB L200.02498 0-2 % BASOPHIL % Normal 1.3 LAB L200.02611 2.0-8.3 K/CU MM NEUTROPHIL Normal ABS 3.60 LAB L200.05475 Less than 2 K/CU MM IMMATR GRAN Normal ABS 0.20 LAB L200.34470 0.9-4.4 K/CU MM LYMPH ABS Normal 2.50 LAB L200.12548 0.1-1.1 K/CU MM MONO ABS Normal 0.50 LAB L200.33830 0-0.5 K/CU MM EOS ABS Normal 0.20 LAB L200.77994 0-0.2 K/CU MM BASO ABS Normal 0.10 LAB L200.62863 Less than 1 % NRBC Normal 0.3 Performed By: #### L200.89400 #### [facility] [address] [place] [address] BMP Collected: 05/14/2018 Status: F Source: [facility] 4:53 AM [facility] REPOSITORY Order Comment: [place]: M TYPE CODE TESTS RESULT OUT OF RANGE REFERENCE UNITS LAB L500.17896 136-145 MMOL/L Normal NA 138 LAB L500.13689 3.5-5.1 MMOL/L High alert K 6.1 Result Comment: MODERATELY HEMOLYZED FINGERSTICK NURSE SAID TO POOL LIFEGUARD AND IF WANTED REDRAW THEY WOULD PUT NEW ORDER IN [facility] LAB L500.93563 98-107 MMOL/L Normal CL 103 LAB L500.30936 21-32 MMOL/L Normal CO2 23 LAB L500.21711 5-16 MMOL/L Normal AGAP 12 LAB L500.33964 70-100 MG/DL High GLU 234 Result Comment: 70-100- Normal Fasting; 100-125 Impaired Fasting; greater than 126 on more than one result- Diabetes. ADA guidelines. Results may be falsely elevated after the administration of Sulfapyridine. Results may be falsely depressed after the administration of Sulfasalazine. LAB L500.85023 7-26 MG/DL High BUN 56 LAB L500.71011 0.510-0.950 MG/DL High CREAT 5.950 Result Comment: Patients receiving either N-Acetylcysteine (NAC) or Metamizole prior to venipuncture, may have falsely depressed results. LAB L500.64592 15-24 Low BUN/CREA 9 LAB L500.96837 8.5-10.1 MG/DL Normal CALCIUM TOTAL 9.4 Performed By: #### L500.04025, L500.26726 #### [facility] [address] [place] [address] GFR EST Collected: 05/14/2018 Status: F Source: [facility] 4:53 AM [facility] REPOSITORY Order Comment: [place]: TYPE CODE TESTS RESULT OUT OF RANGE REFERENCE UNITS LAB L500.84065 ML/MIN Normal IF non-AFR 7 AMER LAB L500.26913 ML/MIN Normal IF 9 AMER Performed By: #### L500.53482, L500.89537 #### [facility] [address] [place] [address] GLUCOSE METER Collected: 05/13/2018 Status: F Source: [facility] 9:25 PM [facility] REPOSITORY TYPE CODE TESTS RESULT OUT OF REFERENCE UNITS RANGE LAB L500.88709 85-125 MG/DL High GLUCOSE METER 228 GLUCOSE METER Collected: 05/13/2018 Status: F Source: [facility] 4:35 PM [facility] REPOSITORY TYPE CODE TESTS RESULT OUT OF REFERENCE UNITS RANGE LAB L500.46163 85-125 MG/DL High GLUCOSE METER 254 PROG.NEPH Observed: 05/13/2018 Status: UNK Source: [facility] 2:31 PM [facility] REPOSITORY [facility] Patient Name: SANDY BRAVO [address] [facility] Date of : [address] [address] Unit Number: [id number] Progress Note-Nephrology Patient Status: ADM Laith Attending Doctor: Anderson Rubio MD Service Date: 05/13/18 1431 Progress Note-Nephrology([facility]) Subjective Subjective: pt feels good did not sleep well last night no more chest pain since patches placed Objective Vital Signs: Vital Signs (Last) Result Date Time Pulse Ox 99 05/13 1403 B/P 128/59 05/13 1403 Temp 97.6 05/13 1403 Pulse 72 05/13 1403 Resp 18 05/13 1403 O2 Delivery ROOM AIR 05/11 1814 IandO 24 Hour Summary 05/13 0000 Intake Total 600 Output Total 1300 Balance -700 Intake, Oral 600 Output, Other 400 Output, Stool 0 Output, Urine 900 Patient 159 lb Weight Exam: AAOx3 No JVD Chest equal in expansion. No adventicious sounds appreciated. S1S2 heard. No rub. Abd Non-distended. Bowel sounds heard. Bilateral lower extremities: No edema/cyanosis Central access: Medications: Medications Current Sig/Lyn Start time Last Medication Dose Route Stop Time Status Admin Amlodipine Besylate 10 MG QDAY 05/12 0900 AC 05/13 (NORVASC TAB) PO 0831 Aspirin 325 MG QDAYWM 05/12 0800 AC 05/13 (ECOTRIN TAB.EC) PO 0831 Atorvastatin Calcium 40 MG QHS 05/11 2200 AC 05/12 (LIPITOR TAB) PO 2154 Calcium Acetate 1,334 MG TIDWM 05/11 1700 AC 05/13 (PHOSLO TAB) PO 1135 Clonidine HCl 0.3 MG BID 05/11 2100 AC 05/13 (CATAPRES TAB) PO 0831 Epoetin Jorge 20,000 UNIT ONCALL PRN 05/12 0900 AC (Procrit/Epogen Vial) IV Heparin Sodium 5,000 UNIT BID 05/11 2100 AC 05/13 (Porcine) SC 0832 (HEPARIN D.SYR) Hydrocodone Bitart/ 1 EACH Q6HPRN PRN 05/11 1900 AC 05/11 Acetaminophen PO 1901 (NORCO 5-325 TAB) Insulin Human Lispro See Dose [facility] 05/11 1700 AC 05/13 (humaLOG/novoLOG PEN) Insts (1) SC 1134 Levothyroxine Sodium 0.112 MG QDAYAC 05/12 0700 AC 05/13 (SYNTHROID TAB) PO 0548 Metoprolol Tartrate 5 MG Q4HPRN PRN 05/12 1500 AC 05/12 (LOPRESSOR AMP) IV 1814 Metoprolol Tartrate 50 MG BID 05/11 2100 AC 05/13 (LOPRESSOR TAB) PO 0831 Nitroglycerin 1 INCH Q6H 05/12 1700 AC 05/13 (NITRO-BID T.OINT) TD 1135 Nitroglycerin 0.4 MG Q5MPRN PRN 05/11 1400 AC (NITROSTAT 0.4MG SL TAB.SL) Vitamin B Complex/ 1 CAP QDAY 05/12 0900 AC 05/13 Folic Acid PO 0831 (NEPHROCAPS/ NEPHROVITE CAP) Dose Instructions: (1)Insulin Human Lispro (humaLOG/novoLOG PEN): 1-5 Units Lab Results: Lab 24hr (CBC/BMP [facility]) 05/13/18 1134: Whole Bld Glucose 263 H 05/13/18 0743: Whole Bld Glucose 169 H 05/13/18 0647: [Embedded Image Not Available] Anion Gap 8, Est GFR ( Amer) 11, Est GFR (Non-Af Amer) 9, BUN/Creatinine Ratio 8 L, Glucose 161 H, Total Calcium 9.1, Iron 90, TIBC 305, Iron Saturation 30, RBC 3.06 L, MCV 91.5, MCHC 32.5, RDW 12.7, MPV 9.1 L, Immature Gran % (Auto) 0.2, Abs Immat Gran (auto) 0.00, Seg Neutrophils % 55.5, Lymphocytes % 32.5, Monocytes % 7.9, Eosinophils % 2.7, Basophils % 1.2, Neutrophils # 2.90, Lymphocytes # 1.70, Monocytes # 0.40, Eosinophils # 0.10, Basophils # 0.10, Nucleated RBCs 0.0 05/13/18 0600: Sodium Cancelled, Potassium Cancelled, Chloride Cancelled, Carbon Dioxide Cancelled, Anion Gap Cancelled, BUN Cancelled, Creatinine Cancelled, BUN/Creatinine Ratio Cancelled, Glucose Cancelled, Total Calcium Cancelled, Iron Cancelled, TIBC Cancelled, Iron Saturation Cancelled 05/13/18 0527: Sodium Cancelled, Potassium Cancelled, Chloride Cancelled, Carbon Dioxide Cancelled, Anion Gap Cancelled, BUN Cancelled, Creatinine Cancelled, BUN/Creatinine Ratio Cancelled, Glucose Cancelled, Total Calcium Cancelled, Iron Cancelled, TIBC Cancelled, Iron Saturation Cancelled, WBC Cancelled, RBC Cancelled, Hgb Cancelled, Hct Cancelled, MCV Cancelled, MCHC Cancelled, RDW Cancelled, Plt Count Cancelled, Seg Neutrophils % Cancelled 05/12/18 2151: Whole Bld Glucose 294 H 05/12/18 1622: Whole Bld Glucose 118 Assessment/Plan Assessment/Problem List: 1. Chest pain for heart cath tomorrow dialysis after that 2. ESRD (end stage renal disease) dialysis after heart cath tomorrow 3. Anemia epo w dialysis 4. Hypertension well controlled Disclaimer This dictation was created using voice recognition software. Phonetic and/or minor grammatical errors may exist. eSign Date and Time Arthur Ibrahim MD Verified/Reviewed by 05/13/18 1433 PROG IMS Observed: 05/13/2018 Status: UNK Source: [facility] 11:36 AM [facility] REPOSITORY [facility] Patient Name: SANDY BRAVO [address] Date of : [address] [place], [place] [address] Unit Number: [id number] Progress Note-Hospitalist Patient Status: ADM Laith Attending Doctor: Anderson Rubio MD Service Date: 05/13/18 1136 Chief Complaint Chief Complaint Chest pain Subjective S: (2 ROS minimum) Patient sleeping comfortably. Currently no chest pain. No shortness of breath. Reports Nitropaste is helping. Discussed with nursing. Objective (ROS) Nursing Vitals Vital Signs (Last) Result Date Time Pulse Ox 99 05/13 1014 B/P 110/62 05/13 1014 Temp 97.9 05/13 1014 Pulse 71 05/13 1014 Resp 18 05/13 1014 O2 Delivery ROOM AIR 05/11 1814 On examination HEENT pupils are equal and reactive to light and accommodation. No pallor. No icterus Neck is supple Cardiovascular system S1-S2 normal. Systolic murmur heard Chest clear bilateral Abdomen soft . Nontender. Bowel sounds present. Extremities trace edema bilateral lower extremities Patient is alert awake oriented to time place person No distress Diagnostic Data: Lab 24hr (CBC/BMP [facility]) 05/13/18 1134: Whole Bld Glucose 263 H 05/13/18 0743: Whole Bld Glucose 169 H 05/13/18 0647: [Embedded Image Not Available] Anion Gap 8, Est GFR ( Amer) 11, Est GFR (Non-Af Amer) 9, BUN/Creatinine Ratio 8 L, Glucose 161 H, Total Calcium 9.1, Iron 90, TIBC 305, Iron Saturation 30, RBC 3.06 L, MCV 91.5, MCHC 32.5, RDW 12.7, MPV 9.1 L, Immature Gran % (Auto) 0.2, Abs Immat Gran (auto) 0.00, Seg Neutrophils % 55.5, Lymphocytes % 32.5, Monocytes % 7.9, Eosinophils % 2.7, Basophils % 1.2, Neutrophils # 2.90, Lymphocytes # 1.70, Monocytes # 0.40, Eosinophils # 0.10, Basophils # 0.10, Nucleated RBCs 0.0 05/13/18 0600: Sodium Cancelled, Potassium Cancelled, Chloride Cancelled, Carbon Dioxide Cancelled, Anion Gap Cancelled, BUN Cancelled, Creatinine Cancelled, BUN/Creatinine Ratio Cancelled, Glucose Cancelled, Total Calcium Cancelled, Iron Cancelled, TIBC Cancelled, Iron Saturation Cancelled 05/13/18 0527: Sodium Cancelled, Potassium Cancelled, Chloride Cancelled, Carbon Dioxide Cancelled, Anion Gap Cancelled, BUN Cancelled, Creatinine Cancelled, BUN/Creatinine Ratio Cancelled, Glucose Cancelled, Total Calcium Cancelled, Iron Cancelled, TIBC Cancelled, Iron Saturation Cancelled, WBC Cancelled, RBC Cancelled, Hgb Cancelled, Hct Cancelled, MCV Cancelled, MCHC Cancelled, RDW Cancelled, Plt Count Cancelled, Seg Neutrophils % Cancelled 05/12/18 2151: Whole Bld Glucose 294 H 05/12/18 1622: Whole Bld Glucose 118 05/12/18 1142: Whole Bld Glucose 191 H Assessment and Plan Conclusion 1. Chest pain Assessment and plan Chest pain rule out [place]. Patient chest pain-free On Nitropatch. Underwent cardiac stress test. Reported abnormal. Cardiology consult. Discussed with . Cardiac catheterization on Monday. Patient on aspirin, statin, beta chris Insulin-dependent diabetes mellitus continue home medications with sliding scale insulin and diabetic diet Hypertension continue home medication Depression, hyperlipidemia and hypothyroidism continue medication Chronic anemia stable DVT prophylaxis with heparin subcutaneous Plan discussed with the patient Disclaimer This dictation was created using voice recognition software. Phonetic and/or minor grammatical errors may exist. eSign Date and Time Anderson Rubio MD Verified/Reviewed by 05/13/18 1138 GLUCOSE METER Collected: 05/13/2018 Status: F Source: [facility] 11:34 AM [facility] REPOSITORY TYPE CODE TESTS RESULT OUT OF REFERENCE UNITS RANGE LAB L500.13581 85-125 MG/DL High GLUCOSE METER 263 GLUCOSE METER Collected: 05/13/2018 Status: F Source: [facility] 7:43 AM [facility] TYPE CODE TESTS RESULT OUT OF REFERENCE UNITS RANGE LAB L500.78138 85-125 MG/DL High GLUCOSE METER 169 CBC W/DIFF Collected: 05/13/2018 Status: F Source: [facility] 6:47 AM [facility] REPOSITORY Order Comment: 0530 CBC CLOTTED; BMP IRON QNS THIS IS A REDRAW TYPE CODE TESTS RESULT OUT OF RANGE REFERENCE UNITS LAB L200.53535 4.5-11.0 K/CU MM WBC Normal 5.2 LAB L200.79345 3.90-5.30 M/CU MM Low RBC 3.06 LAB L200.15780 11.5-15.5 G/DL Low HGB 9.1 LAB L200.08470 35.0-47.0 % Low HCT 28.0 LAB L200.95396 80.0-99.0 fl MCV Normal 91.5 LAB L200.84582 32.0-36.0 GM/DL MCHC Normal 32.5 LAB L200.14121 11-14.5 RDW Normal 12.7 LAB L200.51412 9.4-12.4 Low MPV 9.1 LAB L200.74309 150-450 K/CU MM PLT Normal 190 LAB L200.73969 45-75 % NEUTROPHILS Normal % 55.5 LAB L200.62648 Less than 2 % IMMATURE Normal GRAN % 0.2 LAB L200.87259 20-40 % LYMPH % Normal 32.5 LAB L200.16513 2-10 % MONOCYTE % Normal 7.9 LAB L200.89491 0-5 % EOSINOPHIL Normal % 2.7 LAB L200.67522 0-2 % BASOPHIL % Normal 1.2 LAB L200.57664 2.0-8.3 K/CU MM NEUTROPHIL Normal ABS 2.90 LAB L200.45854 Less than 2 K/CU MM IMMATR GRAN Normal ABS 0.00 LAB L200.43385 0.9-4.4 K/CU MM LYMPH ABS Normal 1.70 LAB L200.34259 0.1-1.1 K/CU MM MONO ABS Normal 0.40 LAB L200.44740 0-0.5 K/CU MM EOS ABS Normal 0.10 LAB L200.74513 0-0.2 K/CU MM BASO ABS Normal 0.10 LAB L200.70938 Less than 1 % NRBC Normal 0.0 Performed By: #### L200.88818 #### [facility] [address] [place] [address] BMP Collected: 05/13/2018 Status: F Source: [facility] 6:47 AM [facility] REPOSITORY Order Comment: 0530 CBC CLOTTED; BMP IRON QNS THIS IS A REDRAW TYPE CODE TESTS RESULT OUT OF RANGE REFERENCE UNITS LAB L500.53352 136-145 MMOL/L Normal NA 140 LAB L500.51671 3.5-5.1 MMOL/L Normal K 5.0 LAB L500.59027 98-107 MMOL/L Normal CL 104 LAB L500.02249 21-32 MMOL/L Normal CO2 29 LAB L500.16706 5-16 MMOL/L Normal AGAP 8 LAB L500.24110 70-100 MG/DL High GLU 161 Result Comment: 70-100- Normal Fasting; 100-125 Impaired Fasting; greater than 126 on more than one result- Diabetes. ADA guidelines. Results may be falsely elevated after the administration of Sulfapyridine. Results may be falsely depressed after the administration of Sulfasalazine. LAB L500.85655 7-26 MG/DL High BUN 39 LAB L500.12726 0.510-0.950 MG/DL High CREAT 4.840 Result Comment: Patients receiving either N-Acetylcysteine (NAC) or Metamizole prior to venipuncture, may have falsely depressed results. LAB L500.99373 15-24 Low BUN/CREA 8 LAB L500.09266 8.5-10.1 MG/DL Normal CALCIUM TOTAL 9.1 Performed By: #### L500.66904, L500.99357, L500.37164 #### [facility] [address] [place] [address] GFR EST Collected: 05/13/2018 Status: F Source: [facility] 6:47 AM [facility] REPOSITORY Order Comment: 0530 CBC CLOTTED; BMP IRON QNS THIS IS A REDRAW TYPE CODE TESTS RESULT OUT OF RANGE REFERENCE UNITS LAB L500.63067 ML/MIN Normal IF non-AFR 9 AMER LAB L500.12401 ML/MIN Normal IF 11 AMER Performed By: #### L500.68412, L500.99568, L500.54811 #### [facility] [place] [address] IRON PANEL Collected: 05/13/2018 Status: F Source: [facility] 6:47 AM [facility] REPOSITORY Order Comment: 0530 CBC CLOTTED; BMP IRON QNS THIS IS A REDRAW TYPE CODE TESTS RESULT OUT OF RANGE REFERENCE UNITS LAB L500.60605 50-170 UG/DL Normal IRON 90 Result Comment: Patients treated with metal-binding drugs (e.g.deferoxamine) may have depressed iron values, as chelated iron may not properly react in the Siemens iron assay. LAB L500.48158 221-481 UG/DL Normal TIBC 305 LAB L500.28935 22-44 % Normal IRON SAT 30 Performed By: #### L500.40251, L500.32035, L500.26284 #### [facility] [address] [place] [address] GLUCOSE METER Collected: 05/12/2018 Status: F Source: [facility] 9:51 PM [facility] REPOSITORY TYPE CODE TESTS RESULT OUT OF REFERENCE UNITS RANGE LAB L500.13163 85-125 MG/DL High GLUCOSE METER 294 GLUCOSE METER Collected: 05/12/2018 Status: F Source: [facility] 4:22 PM [facility] REPOSITORY TYPE CODE TESTS RESULT OUT OF RANGE REFERENCE UNITS LAB L500.99466 85-125 MG/DL Normal GLUCOSE METER 118 PROG.NEPH Observed: 05/12/2018 Status: UNK Source: [facility] 1:57 PM [facility] Patient Name: SANDY BRAVO [address] [facility] [address] Date of : [address] [address] Unit Number: [id number] Progress Note-Nephrology Patient Status: ADM Laith Attending Doctor: Anderson Rubio MD Service Date: 05/12/18 1357 Progress Note-Nephrology([facility]) Subjective Subjective: ctspt - developed cp on dialysis w sob - not as severe as yesterday no n/v/palpn Objective Vital Signs: Vital Signs (Last) Result Date Time Pulse Ox 94 05/12 0640 B/P 156/64 05/12 0640 Temp 98.4 05/12 0640 Pulse 74 05/12 0640 Resp 16 05/12 0640 O2 Delivery ROOM AIR 05/11 1814 IandO 24 Hour Summary 05/12 0000 Intake Total 240 Output Total 300 Balance -60 Intake, Oral 240 Number 2 Unmeasured Voids Output, Stool 0 Output, Urine 300 Patient 161 lb Weight Exam: AAOx3 No JVD Chest equal in expansion. No adventicious sounds appreciated. S1S2 heard. No rub.sl tachycardia 110 now Abd Non-distended. Bowel sounds heard. Bilateral lower extremities: No edema/cyanosis Dialysis access: Central Access: Medications: Medications Current Sig/Lyn Start time Last Medication Dose Route Stop Time Status Admin Amlodipine Besylate 10 MG QDAY 05/12 09 AC (NORVASC TAB) PO Aspirin 325 MG QDAYWM 05/12 08 AC (ECOTRIN TAB.EC) PO Atorvastatin Calcium 40 MG QHS 05/11 2200 AC 05/11 (LIPITOR TAB) PO 210 Calcium Acetate 1,334 MG TIDWM 05/11 1700 AC 05/11 (PHOSLO TAB) PO 180 Clonidine HCl 0.3 MG BID 05/11 2100 AC 05/11 (CATAPRES TAB) PO 210 Epoetin Jorge 20,000 UNIT ONCALL PRN 05/12 09 AC (Procrit/Epogen Vial) IV Heparin Sodium 5,000 UNIT BID 05/11 2100 AC 05/11 (Porcine) SC 210 (HEPARIN D.SYR) Hydrocodone Bitart/ 1 EACH Q6HPRN PRN 05/11 1900 AC 05/11 Acetaminophen PO 190 (NORCO 5-325 TAB) Insulin Human Lispro See Dose WMHS 05/11 1700 AC 05/11 (humaLOG/novoLOG PEN) Insts (1) SC 210 Levothyroxine Sodium 0.112 MG QDAYAC 05/12 07 AC 05/12 (SYNTHROID TAB) PO 0527 Metoprolol Tartrate 50 MG BID 05/11 2100 AC 05/11 (LOPRESSOR TAB) PO 2108 Nitroglycerin 0.5 INCH Q6H 05/11 1700 AC 05/12 (NITRO-BID T.OINT) TD 0527 Nitroglycerin 0.4 MG Q5MPRN PRN 05/11 1400 AC (NITROSTAT 0.4MG SL TAB.SL) Vitamin B Complex/ 1 CAP QDAY 05/12 0900 AC Folic Acid PO (NEPHROCAPS/ NEPHROVITE CAP) Dose Instructions: (1)Insulin Human Lispro (humaLOG/novoLOG PEN): 1-5 Units Lab Results: Lab 24hr (CBC/BMP Fishbone) 05/12/18 1142: Whole Bld Glucose 191 H 05/12/18 0415: Creatine Kinase 251 H, CK-MB (CK-2) 3.0, CK-MB (CK-2) Rel Index 1.2, Troponin I 0.047 H 05/12/18 0415: [Embedded Image Not Available] Anion Gap 10, Est GFR ( Amer) 8, Est GFR (Non-Af Amer) 7, BUN/Creatinine Ratio 9 L, Glucose 145 H, Total Calcium 8.4 L, Phosphorus 8.5 H, Iron 76, TIBC 294, Iron Saturation 26, Albumin 2.6 L, RBC 2.82 L, MCV 92.9, MCHC 31.7 L, RDW 12.6, MPV 9.3 L, Immature Gran % (Auto) 0.2, Abs Immat Gran (auto) 0.00, Seg Neutrophils % 50.2, Lymphocytes % 39.4, Monocytes % 6.8, Eosinophils % 2.5, Basophils % 0.9, Neutrophils # 2.70, Lymphocytes # 2.10, Monocytes # 0.40, Eosinophils # 0.10, Basophils # 0.10, Nucleated RBCs 0.0 05/11/18 2314: Creatine Kinase 49, CK-MB (CK-2) 2.4, CK-MB (CK-2) Rel Index TNP, Troponin I 0.066 H 05/11/18 2106: Whole Bld Glucose 307 H 05/11/18 1803: Whole Bld Glucose 216 H 05/11/18 1647: Creatine Kinase 59, CK-MB (CK-2) 2.2, CK-MB (CK-2) Rel Index TNP, Troponin I 0.051 H 05/11/18 1423: Whole Bld Glucose 109 Assessment/Plan Assessment/Problem List: 1. 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 2. ESRD (end stage renal disease) 3. Anemia 4. Hypertension Disclaimer This dictation was created using voice recognition software. Phonetic and/or minor grammatical errors may exist. eSign Date and Time Arthur Ibrahim MD Verified/Reviewed by 05/12/18 1359 CONS.CARD Observed: 05/12/2018 Status: UNK Source: [facility] 1:25 PM CENTER [facility] Patient Name: SANDY BRAVO [address] [employer] Date of : [address] [address] Unit Number: [id number] Consultation-Cardiology Patient Status: ADM Laith Attending Doctor: Anderson Rubio MD Service Date: 05/12/18 132 History of Present Illness Referring Physician Anderson Rubio MD Consulted Provider Jc Otero MD Source of Information Patient (medical record) Reason for Consult Abnormal stress Living Situation Home - Independent History of Present Illness Patient is a 53-year-old female end-stage renal disease on hemodialysis, nephrotic syndrome, diabetes mellitus was transferred from [facility] in hospital where she was evaluated for chest pain. Patient states it started while sitting in her cahir. Chest pain was on and off throughout the morning. She describes pressure sitting on her chest sometimes at a 10 out of 10. She had associated nausea, diaphoresis and shortness of breath. She denies any radiation of the pain. No lightheadedness, dizziness or syncope. Troponins negative. Patient was transferred to [facility] for further cardiac evaluation. Currently patient denies any chest pain. ER physician from [facility] mentioned that chest pain responded to nitroglycerin. Patient had cardiac catheterization at [facility] many years ago with the no occlusive coronary artery disease at that time. While in the hospital, patient had stress testing done that was abnormal and cardiology was consulted. Past Medical/Surgical Hx Past Medical History Summary Insulin-dependent diabetes with nephropathy retinopathy and neuropathy, coronary artery disease, hypertension, depression, hyperlipidemia and hypothyroidism Past Surgical History Summary AV fistula placement, hemodialysis catheter placement Family/Social History Family History FATHER, . FH: colon cancer MOTHER, . FH: lung cancer SISTER FH: diabetes mellitus BROTHER FH: diabetes mellitus FH: kidney failure Social Hx Patient with lives with her . She is a reformed smoker stopping 3 years ago. Denies any alcohol or illicit drug use Advance Directives Advance Directives Full Code Allergies/Home Medications Allergies Coded Allergies: CODEINE (05/11/18) LATEX (05/11/18) PENICILLINS (05/11/18) Uncoded Allergies: *CODEINE (Mild, NAUESEA and VOMITING 03/19/18) *LATEX (Mild, BREAKS OUT 03/19/18) *PENICILLIN (Mild, SWELLS UP 03/19/18) Home Medications amLODIPine BESYLATE* (Norvasc 5MG Tab*) 5 MG TABLET 10 MG PO QDAY, Ref 0 (Reported) Entered as Reported by BHANU COLUNGA on 09/29/17 1614 Last Action: Continued on 05/11/18 1552 by ANDERSON RUBIO Aspirin* (Aspir 81 MG Tab*) 81 MG TABLET. 81 MG PO QDAYWM, Ref 0 (Reported) TO CONTINUE FOR PROCEDURE PER 'S INSTRUCTIONS Entered as Reported by BHANU COLUNGA on 09/29/17 161 Last Action: Held on 05/11/18 1553 by ANDERSON RUBIO Atorvastatin Calcium* (Lipitor 40MG Tab*) 40 MG TABLET 40 MG PO QHS, Ref 0 (Reported) Entered as Reported by BHANU COLUNGA on 09/29/17 1612 Last Action: Continued on 05/11/18 1552 by ANDERSON RUBIO Calcium Acetate* (Phoslo cap*) 667 MG CAPSULE 1,334 MG PO TIDWM, Ref 0 (Reported) Entered as Reported by KARTHIKEYAN ANDERS on 03/19/18 1404 Last Action: Continued on 05/11/18 1552 by ANDERSON RUBIO cloNIDine HCL* (Catapres 0.2MG Tab*) 0.2 MG TABLET 0.3 MG PO BID, Ref 0 (Reported) Entered as Reported by BHANU COLUNGA on 09/29/17 1614 Last Action: Continued on 05/11/18 155 by ANDERSON RUBIO Folic Acid/Vitamin B Comp W-C* (Nephrocaps Softgel*) 1 MG CAPSULE 1 CAP PO QDAY, Ref 0 (Reported) Entered as Reported by KARTHIKEYAN ANDERS on 03/19/18 1404 Last Action: Continued on 05/11/18 155 by ANDERSON RUBIO Insulin Aspart (Novolog) 100 UNIT/1 ML VIAL 8 UNITS TIDAC, Ref 0 (Reported) Entered as Reported by BHANU COLUNGA on 09/29/17 161 Last Action: Held on 05/11/18 155 by ANDERSON RUBIO Insulin Degludec (Tresiba Flextouch U-100) 100 UNIT/1 ML INSULN.PEN 40 UNIT SQ QHS, Ref 0 (Reported) Entered as Reported by KARTHIKEYAN ANDERS on 03/19/18 1405 Last Action: Held on 05/11/18 155 by ANDERSON RUBIO Levothyroxine Sodium* (Synthroid 0.112MG Tab*) 112 MCG TABLET 0.112 MG PO QDAYAC, Ref 0 (Reported) Entered as Reported by BHANU COLUNGA on 09/29/17 1611 Last Action: Continued on 05/11/18 155 by ANDERSON RUBIO metoprolol TARTRATE* (Lopressor 50MG Tab*) 50 MG TABLET 50 MG PO BID, Ref 0 (Reported) Entered as Reported by BHANU COLUNGA on 09/29/17 161 Last Action: Continued on 05/11/18 155 by ANDERSON RUBIO Inpatient Medications Medications Current Sig/Lyn Start time Last Medication Dose Route Stop Time Status Admin Amlodipine Besylate 10 MG QDAY 05/12 09 AC (NORVASC TAB) PO Aspirin 325 MG QDAYWM 05/12 08 AC (ECOTRIN TAB.EC) PO Atorvastatin Calcium 40 MG QHS 05/11 2200 AC 05/11 (LIPITOR TAB) PO 210 Calcium Acetate 1,334 MG TIDWM 05/11 1700 AC 05/11 (PHOSLO TAB) PO 180 Clonidine HCl 0.3 MG BID 05/11 2100 AC 05/11 (CATAPRES TAB) PO 2106 Epoetin Jorge 20,000 UNIT ONCALL PRN 05/12 0900 AC (Procrit/Epogen Vial) IV Heparin Sodium 5,000 UNIT BID 05/11 2100 AC 05/11 (Porcine) SC 2106 (HEPARIN D.SYR) Hydrocodone Bitart/ 1 EACH Q6HPRN PRN 05/11 1900 AC 05/11 Acetaminophen PO 190 (NORCO 5-325 TAB) Insulin Human Lispro See Dose WMHS 05/11 1700 AC 05/11 (humaLOG/novoLOG PEN) Insts (1) SC 210 Levothyroxine Sodium 0.112 MG QDAYAC 05/12 0700 AC 05/12 (SYNTHROID TAB) PO 05 Metoprolol Tartrate 50 MG BID 05/11 2100 AC 05/11 (LOPRESSOR TAB) PO 210 Nitroglycerin 0.5 INCH Q6H 05/11 1700 AC 05/12 (NITRO-BID T.OINT) TD 0527 Nitroglycerin 0.4 MG Q5MPRN PRN 05/11 1400 AC (NITROSTAT 0.4MG SL TAB.SL) Vitamin B Complex/ 1 CAP QDAY 05/12 0900 AC Folic Acid PO (NEPHROCAPS/ NEPHROVITE CAP) Dose Instructions: (1)Insulin Human Lispro (humaLOG/novoLOG PEN): 1-5 Units Review of Systems ROS: Other Beyond what was mentioned in HPI, 10 systems were reviewed and negative Physical Exam Vital Signs Vital Signs (Last) Result Date Time Pulse Ox 94 05/12 0640 B/P 156/64 05/12 0640 Temp 98.4 05/12 0640 Pulse 74 05/12 0640 Resp 16 05/12 0640 O2 Delivery ROOM AIR 05/11 1814 Vital Signs (24hr) Date Temp Pulse Resp B/P B/P Mean Pulse Ox FiO2 05/11-05/12 98.2-98.4 74-92 16-18 143-157/59-64 94-99 Physical Examination Summary General: Well-appearing, well-nourished and in no acute distress. Head: Atraumatic, normocephalic. Eyes: Sclera anicteric, conjunctiva light pink. ENT: Oropharynx without rendess or swelling. [place], moist mucous membranes. Neck: Supple without lymphadenopathy, thyromegaly or JVD. No carotid bruit. Lungs: Breath sounds CTA bilaterally and equal. Symmetric chest rise. Cardiovascular: RRR without murmurs, rub or gallop. +2 equal pulses upper and lower extremities. Dialysis catheter right upper chest Abdomen: Soft, nontender, normoactive bowel sounds. No guarding, rebound or palpable mass. Extremities: Normal ROM. No edema. No clubbing or cyanosis. Neurologic: Cranial nerves II through XII grossly intact. Normal speech. Skin: Warm and dry with normal turgor. No rashes or lesions noted. Diagnostic Data: Laboratory Tests 05/12 05/12 05/12 05/11 1142 0415 0415 2314 Chemistry Sodium (136 - 145 MMOL/L) 142 Potassium (3.5 - 5.1 MMOL/L) 5.1 Chloride (98 - 107 MMOL/L) 104 Carbon Dioxide (21 - 32 MMOL/L) 27 Anion Gap (5 - 16 MMOL/L) 10 BUN (7 - 26 MG/DL) 56 H Creatinine (0.510 - 0.950 MG/DL) 6.290 H Est GFR ( Amer) (ML/MIN) 8 Est GFR (Non-Af Amer) (ML/MIN) 7 BUN/Creatinine Ratio (15 - 24) 9 L Glucose (70 - 100 MG/DL) 145 H Whole Bld Glucose (85 - 125 MG/DL) 191 H Total Calcium (8.5 - 10.1 MG/DL) 8.4 L Phosphorus (2.5 - 4.9 MG/DL) 8.5 H Iron (50 - 170 UG/DL) 76 TIBC (221 - 481 UG/DL) 294 Iron Saturation (22 - 44 %) 26 Creatine Kinase (26 - 192 U/L) 251 H 49 CK-MB (CK-2) (0.5 - 3.6 NG/ML) 3.0 2.4 CK-MB (CK-2) Rel Index (0 - 2.5) 1.2 TNP Troponin I (0.000 - 0.045 NG/ML) 0.047 H 0.066 H Albumin (3.2 - 5.0 GM/DL) 2.6 L Hematology WBC (4.5 - 11.0 K/CU MM) 5.3 RBC (3.90 - 5.30 M/CU MM) 2.82 L Hgb (11.5 - 15.5 G/DL) 8.3 L Hct (35.0 - 47.0 %) 26.2 L MCV (80.0 - 99.0 fl) 92.9 MCHC (32.0 - 36.0 GM/DL) 31.7 L RDW (11 - 14.5) 12.6 Plt Count (150 - 450 K/CU MM) 193 MPV (9.4 - 12.4) 9.3 L Immature Gran % (Auto) (Less than 2 %) 0.2 Abs Immat Gran (auto) (Less than 2 K/CU MM) 0.00 Seg Neutrophils % (45 - 75 %) 50.2 Lymphocytes % (20 - 40 %) 39.4 Monocytes % (2 - 10 %) 6.8 Eosinophils % (0 - 5 %) 2.5 Basophils % (0 - 2 %) 0.9 Neutrophils # (2.0 - 8.3 K/CU MM) 2.70 Lymphocytes # (0.9 - 4.4 K/CU MM) 2.10 Monocytes # (0.1 - 1.1 K/CU MM) 0.40 Eosinophils # (0 - 0.5 K/CU MM) 0.10 Basophils # (0 - 0.2 K/CU MM) 0.10 Nucleated RBCs (Less than 1 %) 0.0 05/11 05/11 05/11 05/11 05/11 2106 1803 1647 1423 1328 Chemistry Whole Bld Glucose (85 - 125 MG/DL) 307 H 216 H 109 56 L Creatine Kinase (26 - 192 U/L) 59 CK-MB (CK-2) (0.5 - 3.6 NG/ML) 2.2 CK-MB (CK-2) Rel Index (0 - 2.5) TNP Troponin I (0.000 - 0.045 NG/ML) 0.051 H EK05/12/18 sinus tachycardia, LAD, LVH with repolarization abnormality. Rate 102, KS 170, QTc 487. T wave inv I, aVL Conclusion / Plan Conclusion/Plan 1. Chest pain Patient is a 53-year-old female end-stage renal disease on hemodialysis, nephrotic syndrome, diabetes mellitus was transferred from [facility] where she was evaluated for chest pain. Patient states it started yesterday and was on and off throughout the morning. She describes the feeling as a chair sitting on her chest sometimes at a 10 out of 10. She had associated nausea and shortness of breath. She denies any radiation of the pain. No lightheadedness, dizziness or syncope. Troponins negative. Patient was transferred to [facility] for further cardiac evaluation. Currently patient still has 1/10 intermittent CP lasting 10- 15 minutes at a time. Will increase NTG paste to 1 and give IV lopressor PRN systolic BP > 140. Patient has poor IV access but does and a line in the left hand. ECG this AM is unchanged. Serial cardiac enzymes pending. Stress test was abnormal and patient will be scheduled for left heart cath with possible PTCA on Monday. If symptoms worsening, patient may need to go sooner. Continue aspirin, statin, PO beta-chris, DVT prophylaxis. 2. Abnormal stress test Scheduled for left heart catheterization with possible PTCA on Monday 3. ESRD (end stage renal disease) Managed by nephrology. Input regarding IV fluids will be helpful. Patient will obviously be getting contrast on Monday with left heart catheterization. 4. Hypertension Will add PRN IV lopressor and increase NTG paste to 1 Stable Problems Problems not specifically addressed in the above plan are stable and do not warrant adjustment of the current method of therapy. SHANNA- Pt seen and examimed. Has 2 zones of ischemia today on stress test. Having CP on HD. Will get an ECG and likely stop HD. She can have HD after cath Monday. Has a history of stents in the past. CP 4/10 now. Seen and examined with Jc Otero MD Disclaimer This dictation was created using voice recognition software. Phonetic and/or minor grammatical errors may exist. eSign Date and Time Jc Otero MD Verified/Reviewed by 05/12/18 1351 Ge Augustin [facility] Observed: 05/12/2018 Status: UNK Source: [facility] 1:19 PM CENTER [facility] Patient Name: SANDY BRAVO [address] [employer] Date of : [address] [address] Unit Number: [id number] Progress Note-Hospitalist Patient Status: ADM Laith Attending Doctor: Anderson Rubio MD Service Date: 05/12/18 0491 Chief Complaint Chief Complaint Chest pain Subjective S: (2 ROS minimum) Patient has some chest pain but comfortable now. No shortness of breath. Patient had stress test and then went to hemodialysis. Objective (ROS) Nursing Vitals Vital Signs (Last) Result Date Time Pulse Ox 94 05/12 0640 B/P 156/64 05/12 0640 Temp 98.4 05/12 0640 Pulse 74 05/12 0640 Resp 16 05/12 0640 O2 Delivery ROOM AIR 05/11 1814 On examination HEENT pupils are equal and reactive to light and accommodation. No pallor. No icterus Neck is supple Cardiovascular system S1-S2 normal. Systolic murmur heard Chest clear bilateral Abdomen soft . Nontender. Bowel sounds present. Extremities trace edema bilateral lower extremities Patient is alert awake oriented to time place person No distress Diagnostic Data: Lab 24hr (CBC/BMP [facility]) 05/12/18 1142: Whole Bld Glucose 191 H 05/12/18 0415: Creatine Kinase 251 H, CK-MB (CK-2) 3.0, CK-MB (CK-2) Rel Index 1.2, Troponin I 0.047 H 05/12/18 0415: [Embedded Image Not Available] Anion Gap 10, Est GFR ( Amer) 8, Est GFR (Non-Af Amer) 7, BUN/Creatinine Ratio 9 L, Glucose 145 H, Total Calcium 8.4 L, Phosphorus 8.5 H, Iron 76, TIBC 294, Iron Saturation 26, Albumin 2.6 L, RBC 2.82 L, MCV 92.9, MCHC 31.7 L, RDW 12.6, MPV 9.3 L, Immature Gran % (Auto) 0.2, Abs Immat Gran (auto) 0.00, Seg Neutrophils % 50.2, Lymphocytes % 39.4, Monocytes % 6.8, Eosinophils % 2.5, Basophils % 0.9, Neutrophils # 2.70, Lymphocytes # 2.10, Monocytes # 0.40, Eosinophils # 0.10, Basophils # 0.10, Nucleated RBCs 0.0 05/11/18 2314: Creatine Kinase 49, CK-MB (CK-2) 2.4, CK-MB (CK-2) Rel Index TNP, Troponin I 0.066 H 05/11/18 2106: Whole Bld Glucose 307 H 05/11/18 1803: Whole Bld Glucose 216 H 05/11/18 1647: Creatine Kinase 59, CK-MB (CK-2) 2.2, CK-MB (CK-2) Rel Index TNP, Troponin I 0.051 H 05/11/18 1423: Whole Bld Glucose 109 05/11/18 1328: Whole Bld Glucose 56 L Assessment and Plan Conclusion 1. Chest pain Assessment and plan Chest pain rule out LA. Patient has on and off chest pain. On Nitropatch. Underwent cardiac stress test. Reported abnormal. Cardiology consult. Discussed with . Cardiac catheterization on Monday. Insulin-dependent diabetes mellitus continue home medications with sliding scale insulin and diabetic diet Hypertension continue home medication Depression, hyperlipidemia and hypothyroidism continue medication Chronic anemia stable DVT prophylaxis with heparin subcutaneous Plan discussed with the patient Disclaimer This dictation was created using voice recognition software. Phonetic and/or minor grammatical errors may exist. eSign Date and Time Anderson Rubio MD Verified/Reviewed by 05/12/18 [facility] PROG.NEPH Observed: 05/12/2018 Status: UNK Source: [facility] 11:52 AM [facility]: [facility] Date of : [address] [address] Unit Number: [id number] Progress Note-Nephrology Patient Status: ADM Laith Attending Doctor: Anderson Rubio MD Service Date: 05/12/18 1152 Progress Note-Nephrology([facility]) Subjective Subjective: pt seen after st had some cp comfortable now no sob Objective Vital Signs: Vital Signs (Last) Result Date Time Pulse Ox 94 05/12 0640 B/P 156/64 05/12 0640 Temp 98.4 05/12 0640 Pulse 74 05/12 0640 Resp 16 05/12 0640 O2 Delivery ROOM AIR 05/11 1814 IandO 24 Hour Summary 05/12 0000 Intake Total 240 Output Total 300 Balance -60 Intake, Oral 240 Number 2 Unmeasured Voids Output, Stool 0 Output, Urine 300 Patient 161 lb Weight Exam: AAOx3 No JVD Chest equal in expansion. No adventicious sounds appreciated. S1S2 heard. No rub. Abd Non-distended. Bowel sounds heard. Bilateral lower extremities: No edema/cyanosis Dialysis access: Rijtemp line Central Access: Medications: Medications Current Sig/Lyn Start time Last Medication Dose Route Stop Time Status Admin Amlodipine Besylate 10 MG QDAY 05/12 0900 AC (NORVASC TAB) PO Aspirin 325 MG QDAYWM 05/12 08 AC (ECOTRIN TAB.EC) PO Atorvastatin Calcium 40 MG QHS 05/11 2200 AC 05/11 (LIPITOR TAB) PO 210 Calcium Acetate 1,334 MG TIDWM 05/11 1700 AC 05/11 (PHOSLO TAB) PO 180 Clonidine HCl 0.3 MG BID 05/11 2100 AC 05/11 (CATAPRES TAB) PO 210 Epoetin Jorge 20,000 UNIT ONCALL PRN 05/12 09 AC (Procrit/Epogen Vial) IV Heparin Sodium 5,000 UNIT BID 05/11 2100 AC 05/11 (Porcine) SC 210 (HEPARIN D.SYR) Hydrocodone Bitart/ 1 EACH Q6HPRN PRN 05/11 1900 AC 05/11 Acetaminophen PO 190 (NORCO 5-325 TAB) Insulin Human Lispro See Dose WMHS 05/11 1700 AC 05/11 (humaLOG/novoLOG PEN) Insts (1) SC 2108 Levothyroxine Sodium 0.112 MG QDAYAC 05/12 0700 AC 05/12 (SYNTHROID TAB) PO 0527 Metoprolol Tartrate 50 MG BID 05/11 2100 AC 05/11 (LOPRESSOR TAB) PO 2108 Nitroglycerin 0.5 INCH Q6H 05/11 1700 AC 05/12 (NITRO-BID T.OINT) TD 0527 Nitroglycerin 0.4 MG Q5MPRN PRN 05/11 1400 AC (NITROSTAT 0.4MG SL TAB.SL) Vitamin B Complex/ 1 CAP QDAY 05/12 0900 AC Folic Acid PO (NEPHROCAPS/ NEPHROVITE CAP) Dose Instructions: (1)Insulin Human Lispro (humaLOG/novoLOG PEN): 1-5 Units Lab Results: Lab 24hr (CBC/BMP Fishbone) 05/12/18 1142: Whole Bld Glucose 191 H 05/12/18 0415: Creatine Kinase 251 H, CK-MB (CK-2) 3.0, CK-MB (CK-2) Rel Index 1.2, Troponin I 0.047 H 05/12/18 0415: [Embedded Image Not Available] Anion Gap 10, Est GFR ( Amer) 8, Est GFR (Non-Af Amer) 7, BUN/Creatinine Ratio 9 L, Glucose 145 H, Total Calcium 8.4 L, Phosphorus 8.5 H, Iron 76, TIBC 294, Iron Saturation 26, Albumin 2.6 L, RBC 2.82 L, MCV 92.9, MCHC 31.7 L, RDW 12.6, MPV 9.3 L, Immature Gran % (Auto) 0.2, Abs Immat Gran (auto) 0.00, Seg Neutrophils % 50.2, Lymphocytes % 39.4, Monocytes % 6.8, Eosinophils % 2.5, Basophils % 0.9, Neutrophils # 2.70, Lymphocytes # 2.10, Monocytes # 0.40, Eosinophils # 0.10, Basophils # 0.10, Nucleated RBCs 0.0 05/11/18 2314: Creatine Kinase 49, CK-MB (CK-2) 2.4, CK-MB (CK-2) Rel Index TNP, Troponin I 0.066 H 05/11/18 2106: Whole Bld Glucose 307 H 05/11/18 1803: Whole Bld Glucose 216 H 05/11/18 1647: Creatine Kinase 59, CK-MB (CK-2) 2.2, CK-MB (CK-2) Rel Index TNP, Troponin I 0.051 H 05/11/18 1423: Whole Bld Glucose 109 05/11/18 1328: Whole Bld Glucose 56 L Assessment/Plan Assessment/Problem List: 1. Chest pain st today dover in progress 2. ESRD (end stage renal disease) on dialysis currently 3. Anemia epo w dialysis check iron stores 4. Hypertension modestly well controlled continue w current regimen. Disclaimer This dictation was created using voice recognition software. Phonetic and/or minor grammatical errors may exist. eSign Date and Time Arthur Ibrahim MD Verified/Reviewed by 05/12/18 1155 GLUCOSE METER Collected: 05/12/2018 Status: F Source: [facility] 11:42 AM [facility] REPOSITORY TYPE CODE TESTS RESULT OUT OF REFERENCE UNITS RANGE LAB L500.53074 85-125 MG/DL High GLUCOSE METER 191 CBC W/DIFF Collected: 05/12/2018 Status: F Source: [facility] 4:15 AM [facility] REPOSITORY Order Comment: [place]: M TYPE CODE TESTS RESULT OUT OF RANGE REFERENCE UNITS LAB L200.48109 4.5-11.0 K/CU MM WBC Normal 5.3 LAB L200.18407 3.90-5.30 M/CU MM Low RBC 2.82 LAB L200.60777 11.5-15.5 G/DL Low HGB 8.3 LAB L200.84009 35.0-47.0 % Low HCT 26.2 LAB L200.20745 80.0-99.0 fl MCV Normal 92.9 LAB L200.64288 32.0-36.0 GM/DL Low MCHC 31.7 LAB L200.34484 11-14.5 RDW Normal 12.6 LAB L200.47160 9.4-12.4 Low MPV 9.3 LAB L200.84880 150-450 K/CU MM PLT Normal 193 LAB L200.97315 45-75 % NEUTROPHILS Normal % 50.2 LAB L200.01614 Less than 2 % IMMATURE Normal GRAN % 0.2 LAB L200.71145 20-40 % LYMPH % Normal 39.4 LAB L200.43624 2-10 % MONOCYTE % Normal 6.8 LAB L200.80141 0-5 % EOSINOPHIL Normal % 2.5 LAB L200.91485 0-2 % BASOPHIL % Normal 0.9 LAB L200.15183 2.0-8.3 K/CU MM NEUTROPHIL Normal ABS 2.70 LAB L200.11959 Less than 2 K/CU MM IMMATR GRAN Normal ABS 0.00 LAB L200.71069 0.9-4.4 K/CU MM LYMPH ABS Normal 2.10 LAB L200.77529 0.1-1.1 K/CU MM MONO ABS Normal 0.40 LAB L200.84642 0-0.5 K/CU MM EOS ABS Normal 0.10 LAB L200.86183 0-0.2 K/CU MM BASO ABS Normal 0.10 LAB L200.11755 Less than 1 % NRBC Normal 0.0 Performed By: #### L200.63096 #### [facility] [address] [place] [address] CKMB PROFILE Collected: 05/12/2018 Status: F Source: [facility] 4:15 AM [facility] REPOSITORY Order Comment: [place]: M TYPE CODE TESTS RESULT OUT OF RANGE REFERENCE UNITS LAB L500.45862 26-192 U/L High CK 251 Result Comment: Moderate Hemolysis, Result may be falsely increased. LAB L500.38978 0.5-3.6 NG/ML Normal CKMB 3.0 LAB L500.90802 0-2.5 Normal RI 1.2 Performed By: #### L500.78834, L550.87252 #### [facility] [address] [place] [address] TROPONIN I Collected: 05/12/2018 Status: F Source: [facility] 4:15 AM [facility] [facility] REPOSITORY Order Comment: [place]: M TYPE CODE TESTS RESULT OUT OF REFERENCE UNITS RANGE LAB L550.19246 0.000-0.045 NG/ML High TROPONIN I 0.047 Performed By: #### L500.25050, L550.91416 #### [facility] [address] [place] [address] RENAL Collected: 05/12/2018 Status: F Source: [facility] 4:15 AM [facility] REPOSITORY Order Comment: [place]: M TYPE CODE TESTS RESULT OUT OF RANGE REFERENCE UNITS LAB L500.89912 136-145 MMOL/L Normal NA 142 LAB L500.03519 3.5-5.1 MMOL/L Normal K 5.1 LAB L500.26687 98-107 MMOL/L Normal CL 104 LAB L500.27830 21-32 MMOL/L Normal CO2 27 LAB L500.30322 5-16 MMOL/L Normal AGAP 10 LAB L500.56077 70-100 MG/DL High GLU 145 Result Comment: 70-100- Normal Fasting; 100-125 Impaired Fasting; greater than 126 on more than one result- Diabetes. ADA guidelines. Results may be falsely elevated after the administration of Sulfapyridine. Results may be falsely depressed after the administration of Sulfasalazine. LAB L500.47459 7-26 MG/DL High BUN 56 LAB L500.95080 0.510-0.950 MG/DL High CREAT 6.290 Result Comment: Patients receiving either N-Acetylcysteine (NAC) or Metamizole prior to venipuncture, may have falsely depressed results. LAB L500.82958 15-24 Low BUN/CREA 9 LAB L500.63575 3.2-5.0 GM/DL Low ALBUMIN 2.6 LAB L500.19368 8.5-10.1 MG/DL Low CALCIUM TOTAL 8.4 LAB L500.58859 2.5-4.9 MG/DL High PHOS 8.5 Performed By: #### L500.30992, L500.19887, L500.66800 #### [facility] [address] [place] [address] GFR EST Collected: 05/12/2018 Status: F Source: [facility] 4:15 AM [facility] REPOSITORY Order Comment: [place]: M TYPE CODE TESTS RESULT OUT OF RANGE REFERENCE UNITS LAB L500.47427 ML/MIN Normal IF non-AFR 7 AMER LAB L500.10506 ML/MIN Normal IF 8 AMER Performed By: #### L500.84940, L500.30405, L500.67869 #### [facility] [address] [place] [address] IRON PANEL Collected: 05/12/2018 Status: F Source: [facility] 4:15 AM [facility] REPOSITORY Order Comment: [place]: M TYPE CODE TESTS RESULT OUT OF RANGE REFERENCE UNITS LAB L500.16887 50-170 UG/DL Normal IRON 76 Result Comment: Patients treated with metal-binding drugs (e.g.deferoxamine) may have depressed iron values, as chelated iron may not properly react in the Siemens iron assay. LAB L500.68383 221-481 UG/DL Normal TIBC 294 LAB L500.53779 22-44 % Normal IRON SAT 26 Performed By: #### L500.72767, L500.08316, L500.63550 #### [facility] [address] [place] [address] CKMB PROFILE Collected: 05/11/2018 Status: F Source: [facility] 11:14 PM [facility] REPOSITORY Order Comment: [place]: M TYPE CODE TESTS RESULT OUT OF RANGE REFERENCE UNITS LAB L500.60456 26-192 U/L Normal CK 49 LAB L500.24891 0.5-3.6 NG/ML Normal CKMB 2.4 LAB L500.08126 0-2.5 Normal RI TNP Performed By: #### L500.29757, L550.91263 #### [facility] [place] [address] TROPONIN I Collected: 05/11/2018 Status: F Source: [facility] 11:14 PM [facility] REPOSITORY Order Comment: [place]: M TYPE CODE TESTS RESULT OUT OF REFERENCE UNITS RANGE LAB L550.82474 0.000-0.045 NG/ML High TROPONIN I 0.066 Performed By: #### L500.12780, L550.97305 #### [facility] [address] [place] [address] GLUCOSE METER Collected: 05/11/2018 Status: F Source: [facility] 9:06 PM [facility] REPOSITORY TYPE CODE TESTS RESULT OUT OF REFERENCE UNITS RANGE LAB L500.68068 85-125 MG/DL High GLUCOSE METER 307 GLUCOSE METER Collected: 05/11/2018 Status: F Source: [facility] 6:03 PM [facility] TYPE CODE TESTS RESULT OUT OF REFERENCE UNITS RANGE LAB L500.51776 85-125 MG/DL High GLUCOSE METER 216 PROG.NEPH Observed: 05/11/2018 Status: UNK Source: [facility] 5:06 PM [facility] Patient Name: SANDY BRAVO [address] [facility] Date of : [address] [address] Unit Number: [id number] Progress Note-Nephrology Patient Status: ADM Laith Attending Doctor: Anderson Rubio MD Service Date: 05/11/18 1706 Progress Note-Nephrology([facility]) Subjective Subjective: [id number] Disclaimer This dictation was created using voice recognition software. Phonetic and/or minor grammatical errors may exist. eSign Date and Time Arthur Ibrahim MD Verified/Reviewed by 05/11/18 1706 CKMB PROFILE Collected: 05/11/2018 Status: F Source: [facility] 4:47 PM [facility] REPOSITORY Order Comment: [place]: M TYPE CODE TESTS RESULT OUT OF RANGE REFERENCE UNITS LAB L500.30708 26-192 U/L Normal CK 59 LAB L500.69739 0.5-3.6 NG/ML Normal CKMB 2.2 LAB L500.06178 0-2.5 Normal RI TNP Performed By: #### L500.37135, L550.95698 #### [facility] [place] [address] TROPONIN I Collected: 05/11/2018 Status: F Source: [facility] 4:47 PM [facility] REPOSITORY Order Comment: [place]: M TYPE CODE TESTS RESULT OUT OF REFERENCE UNITS RANGE LAB L550.44932 0.000-0.045 NG/ML High TROPONIN I 0.051 Performed By: #### L500.48761, L550.51283 #### [facility] [address] [place] [address] HP.IMS.ADM Observed: 05/11/2018 Status: UNK Source: [facility] 3:26 PM [facility] Patient Name: SANDY BRAVO [address] [facility] Date of : [address] [place], [place] [address] Unit Number: [id number] Admission-HandP Patient Status: ADM Laith Attending Doctor: Anderson Rubio MD Service Date: 05/11/18 1526 History of Present Illness Source of Information Patient Chief Complaint/Present Illness: Patient transferred from [facility] for chest pain evaluation History of Present Illness Patient is a 53-year-old female end-stage renal disease on hemodialysis, nephrotic syndrome, diabetes mellitus was transferred from [facility]. Patient presented to [facility] with chest pain. Patient states it started yesterday and was on and off and this morning it progress it to the point it was like 10 over 10 as though a different sitting on her chest associated with some shortness of breath, nausea she did have increases 1 time no diaphoresis. Patient evaluated in the ER at [facility]. Troponins negative. Patient was transferred to [facility] for further cardiac evaluation. Currently patient denies any chest pain. ER physician from [facility] mentioned that chest pain responded to nitroglycerin. Patient had cardiac catheterization long time back with the no occlusive coronary artery disease at that time. Has had no further cardiac workup after that. Past Medical/Surgical Hx Past Medical History Insulin-dependent diabetes with nephropathy retinopathy and neuropathy, coronary artery disease, hypertension, depression, hyperlipidemia and hypothyroidism Past Surgical History AV fistula placement, hemodialysis catheter placement Family/Social History Family History FATHER, . FH: colon cancer MOTHER, . FH: lung cancer SISTER FH: diabetes mellitus BROTHER FH: diabetes mellitus FH: kidney failure Social Hx Quit smoking 3 years ago. Denies any alcohol intake. Lives with her . Advance Directives Advance Directives Full Code Allergies/Home Medications Allergies Coded Allergies: CODEINE (05/11/18) LATEX (05/11/18) PENICILLINS (05/11/18) Uncoded Allergies: *CODEINE (Mild, NAUESEA and VOMITING 03/19/18) *LATEX (Mild, BREAKS OUT 03/19/18) *PENICILLIN (Mild, SWELLS UP 03/19/18) Home Medications amLODIPine BESYLATE* (Norvasc 5MG Tab*) 5 MG TABLET 10 MG PO QDAY, Ref 0 (Reported) Entered as Reported by BHANU COLUNGA on 09/29/17 1614 Last Action: Reviewed on 05/11/18 134 by ANDERSON RUBIO Aspirin* (Aspir 81 MG Tab*) 81 MG TABLET. 81 MG PO QDAYWM, Ref 0 (Reported) TO CONTINUE FOR PROCEDURE PER 'S INSTRUCTIONS Entered as Reported by BHANU COLUNGA on 09/29/17 161 Last Action: Reviewed on 05/11/18 134 by ANDERSON RUBIO Atorvastatin Calcium* (Lipitor 40MG Tab*) 40 MG TABLET 40 MG PO QHS, Ref 0 (Reported) Entered as Reported by BHANU COLUNGA on 09/29/17 161 Last Action: Reviewed on 05/11/18 134 by ANDERSON RUBIO Calcium Acetate* (Phoslo cap*) 667 MG CAPSULE 1,334 MG PO TIDWM, Ref 0 (Reported) Entered as Reported by KARTHIKEYAN ANDERS on 03/19/18 140 Last Action: Reviewed on 05/11/181344 by ANDERSON RUBIO cloNIDine HCL* (Catapres 0.2MG Tab*) 0.2 MG TABLET 0.3 MG PO BID, Ref 0 (Reported) Entered as Reported by BHANU COLUNGA on 09/29/17 161 Last Action: Reviewed on 05/11/181344 by ANDERSON RUBIO Folic Acid/Vitamin B Comp W-C* (Nephrocaps Softgel*) 1 MG CAPSULE 1 CAP PO QDAY, Ref 0 (Reported) Entered as Reported by KARTHIKEYAN ANDERS on 03/19/181403 Last Action: Reviewed on 05/11/181344 by ANDERSON RUBIO Insulin Aspart (Novolog) 100 UNIT/1 ML VIAL 8 UNITS TIDAC, Ref 0 (Reported) Entered as Reported by BHANU COLUNGA on 09/29/17 161 Last Action: Reviewed on 05/11/181344 by ANDERSON RUBIO Insulin Degludec (Tresiba Flextouch U-100) 100 UNIT/1 ML INSULN.PEN 40 UNIT SQ QHS, Ref 0 (Reported) Entered as Reported by KARTHIKEYAN ANDERS on 03/19/181404 Last Action: Reviewed on 05/11/181344 by ANDERSON RUBIO Levothyroxine Sodium* (Synthroid 0.112MG Tab*) 112 MCG TABLET 0.112 MG PO QDAYAC, Ref 0 (Reported) Entered as Reported by BHANU COLUNGA on 09/29/17 161 Last Action: Reviewed on 05/11/18 134 by ANDERSON RUBIO metoprolol TARTRATE* (Lopressor 50MG Tab*) 50 MG TABLET 50 MG PO BID, Ref 0 (Reported) Entered as Reported by BHANU COLUNGA on 09/29/17 161 Last Action: Reviewed on 05/11/181344 by ANDERSON RUBIO Review of Systems ROS: Other Constitutional - [Denies any fever, chills, fatigue.] Eyes - [Denies any blurred vision, double vision.] HEENT -[Denies any difficulty hearing, difficulty swallowing, headaches, or sore throat.] Cardiovascular - [Denies any palpitations or dizziness.] Respiratory - [Denies any cough, hemoptysis, shortness of breath.] Gastrointestinal - [Denies any abdominal pain, diarrhea, nausea, or vomiting.] Genitourinary - [Denies any dysuria, hematuria. Skin denies any jaundice, rash.] Neurologic - [Denies any blurred vision, double vision, slurred speech, headaches, or numbness and tingling.] Psychiatric - [Denies any anxiety, depression.] Physical Exam Vital Signs Vital Signs (Last) Result Date Time Pulse Ox 97 05/11 1250 B/P 129/68 05/11 1250 O2 Delivery ROOM AIR 05/11 1250 Temp 98.1 05/11 1250 Pulse 104 05/11 1250 Resp 18 05/11 1250 Physical Exam Summary On examination HEENT pupils are equal and reactive to light and accommodation. No pallor. No icterus Neck is supple Cardiovascular system S1-S2 normal. Systolic murmur heard Chest clear bilateral Abdomen soft . Nontender. Bowel sounds present. Extremities trace edema bilateral lower extremities Patient is alert awake oriented to time place person No distress Additional Laboratory Tests Test Result Date Time Chemistry Whole Bld Glucose (85 - 125 MG/DL) 109 05/11 1423 Labs from [facility] WBC 6 hemoglobin 10 hematocrit 29.4 platelets 233 Sodium 141 potassium 4.7 chloride 102 bicarbonate 28 BUN 49 creatinine 5.3 AST 17 alkaline phosphatase 112 calcium 9.2 albumin 3.6 BNP 391 EKG single lead shows normal sinus rhythm Conclusion / Plan Conclusion 1. Chest pain Assessment and plan Chest pain rule out LA. Add patient will be admitted as observation. Cycle troponins. Obtain EKG. Sublingual nitroglycerin and Nitropaste. Morphine for pain added. Obtain cardiac stress test. If troponins negative. Aspirin. Insulin-dependent diabetes mellitus continue home medications with sliding scale insulin and diabetic diet Hypertension continue home medication Depression, hyperlipidemia and hypothyroidism continue medication Chronic anemia stable DVT prophylaxis with heparin subcutaneous Plan discussed with the patient and family at bedside. Disclaimer This dictation was created using voice recognition software. Phonetic and/or minor grammatical errors may exist. eSign Date and Time Anderson Rubio MD Verified/Reviewed by 05/11/18 1533 GLUCOSE METER Collected: 05/11/2018 Status: F Source: [facility] 2:23 PM [facility] REPOSITORY TYPE CODE TESTS RESULT OUT OF RANGE REFERENCE UNITS LAB L500.65579 85-125 MG/DL Normal GLUCOSE METER 109 GLUCOSE METER Collected: 05/11/2018 Status: F Source: [facility] 1:28 PM [facility] REPOS[facility]ORY TYPE CODE TESTS RESULT OUT OF REFERENCE UNITS RANGE LAB L500.56250 85-125 MG/DL Low GLUCOSE METER 56 EKG Observed: 05/11/2018 Status: UNK Source: [facility] 1:01 PM [facility] REPOSITORY Procedure Date and Time: 05/11/18 1521 Test Reason : RT Blood Pressure : / mmHG Vent. Rate : 089 BPM Atrial Rate : 089 BPM P-R Int : 182 ms QRS Dur : 100 ms QT Int : 394 ms P-R-T Axes : 071 -41 107 degrees QTc Int : 479 ms Normal sinus rhythm Left axis deviation Left ventricular hypertrophy with repolarization abnormality Abnormal ECG When compared with ECG of 13-FEB-2018 16:16, No significant change was found Confirmed by JESUSITA PONCE MD ([id number]) on 05/11/2018 5:37:29 PM Referred By: Anderson Rubio Confirmed By:JESUSITA PONCE MD M.D. DDandT: 05/11/18 1521 TDandT: [facility] PATIENT NAME: SANDY BRAVO Roshni[address] [facility] MEDICAL REC #: [id number] [place] [address] ADMIT DATE: 05/11/18 DISCHARGE DATE: ATTENDING PHY: Anderson Rubio MD ELECTROCARDIOGRAM REPORT CLB cc: [facility] PATIENT NAME: SANDY BRAVO Roshni[address] [facility] MEDICAL REC #: [id number] [place] [address] ADMIT DATE: 05/11/18 DISCHARGE DATE: ATTENDING PHY: Anderson Rubio MD ELECTROCARDIOGRAM REPORT CR Observed: 05/11/2018 Status: UNK Source: [facility] 1:01 PM [facility] REPOSITORY DATE OF CONSULTATION: 05/11/2018 This is a 53-year-old white female with chronic kidney disease, believed to be secondary to diabetic hypertensive nephropathy, on hemodialysis Monday, Monday, and Monday via a right IJ temporary dialysis catheter at [facility] under the expert care of Dr. Lane Brand since February this year. She started having pain in her chest yesterday like an elephant sitting on her chest, associated with nausea, vomiting, dyspnea, diaphoresis, palpitations. Went to the emergency department. They transferred her here. She denies any other problems. No recent fevers, chills, cough. No difficulty initiating or stopping her stream of urine. No incomplete emptying. She has not seen any blood in her urine. She has had no pain or discomfort during micturition. No constipation or diarrhea. No new rashes or arthralgias. She has a poorly functioning left upper extremity AV fistula which has been manipulated recently and had a temporary catheter placed. PAST HISTORY: Significant for: 1. Diabetes. 2. Hypertension. 3. Hyperlipidemia. 4. Depression. 5. Hypothyroidism. FAMILY HISTORY: Father with colon cancer. Mother with lung cancer. A sister has diabetes. A brother has diabetes and kidney failure. SOCIAL HISTORY: She lives in [place] with her , quit smoking 3 years ago. Does not drink any alcohol or use any other drugs. She does not work outside the home. ALLERGIES: CODEINE, LATEX, AND PENICILLINS. MEDICATIONS AT HOME: 1. Amlodipine. 2. Aspirin. 3. Atorvastatin. 4. Calcium. 5. Clonidine. 6. Folic acid. 7. Insulin. 8. Synthroid. 9. Metoprolol. REVIEW OF SYSTEMS: Please see history of present illness. PHYSICAL EXAMINATION: [facility] PATIENT NAME: SANDY BRAVO [address] [facility] [place] MEDICAL REC #: [id number] [place] [address] ADMIT DATE: 05/11/18 DISCHARGE DATE: CONSULTATION REPORT ATTENDING PHY: Anderson Rubio MD Vital signs: Temperature 98.1, heart rate 104, respiratory rate 18, blood pressure 129/68. General: She is a well-appearing white female in no acute distress. She answers questions appropriate and is cooperative with exam. She appears comfortable with conversation. Neck: Supple. No lymphadenopathy. Heart: Had a regular rate and rhythm. Normal S1 and S2. Lungs: Clear to auscultation posteriorly. No crackles or wheezes. Abdomen: Bowel sounds positive x4, soft, nontender, nondistended. No mass palpated or bruits auscultated. Extremities: Warm and dry with only trace pretibial edema bilaterally. LABORATORIES: From today, show a white count of 7.1, hemoglobin 11.1, platelet of 183,000. Potassium today was 5.2, creatinine of 4.3, calcium 9.3, phosphorus 5.1, albumin 3.1. ASSESSMENT AND PLAN: 1. Chest pain, to be worked up by Cardiology. Unclear as to what their plans are. 2. Chronic kidney disease. She will have dialysis tomorrow. Will get her potassium better controlled. 3. Anemia. Her hemoglobin is pretty good. Will check her iron levels. 4. Hypertension. Blood pressure is well-controlled. Arthur Ibrahim MD [id number] [facility] File#: [id number] Verified/Reviewed by 05/14/18 Rukhsana MONROE [facility] PATIENT NAME: SANDY BRAVO [facility] [address] [place] MEDICAL REC #: [id number] [place] [address] ADMIT DATE: 05/11/18 DISCHARGE DATE: CONSULTATION REPORT ATTENDING PHY: Anderson Rubio MD CDLSTRESS Observed: 05/11/2018 Status: UNK Source: [facility] 1:01 PM [facility] INTERPRETING PHYSICIAN: Jc Otero MD ATTENDING PHYSICIAN: Anderson Rubio MD ORDERING/REFERRING PHYSICIAN: DATE(S) OF SERVICE: 05/12/2018 PROCEDURE: Nuclear stress test dictation. PATIENT RELATED INFORMATION: Age: 53 Height: ft in Weight: lbs. oz. Sex: F Smokes: Cigars: #Cigs: Pipe: Inactive: Mod.Man.Labor: Heavy Work: Sedentary: Sedentary and Ex. Program: HR Since last meal: REASON FOR PERFORMING TEST: MEDICATIONS: INTERPRETATION: EKG response to exercise: Blood pressure response: Rhythm: Conduction: ST segment: Heart rate response: Fitness classification: Resting ECG: The patient underwent Lexiscan per protocol. Resting dose of sestamibi was 12.2 mCi. Stress test was 31.3. During acquisition of raw images, no significant motion of the cardiac silhouette. There was a defect noted involving the anterior wall suggesting reversibility and also the lateral wall suggesting reversibility is well. There was mild chest dilatation. Ejection fraction was 60%. TID was 1.09. CONCLUSION: 1. Positive ischemia seen involving the anterior wall and also the lateral wall. 2. Ejection fraction 60%. 3. Mild stress dilatation was noted. Jc Otero MD [facility] PATIENT NAME: SANDY BRAVO [address] [facility] [address] [place] MEDICAL REC #: [id number] [place] [address] ADMIT DATE: 05/11/18 DISCHARGE DATE: 05/15/18 ATTENDING PHY: Anderson Rubio MD CARDIAC STRESS TEST REPORT [id number] [facility] File#: [id number] Verified/Reviewed by [id number] [facility] PATIENT NAME: SANDY BRAVO [facility] [address] [place] MEDICAL REC #: [id number] [place] [address] ADMIT DATE: 05/11/18 DISCHARGE DATE: 05/15/18 ATTENDING PHY: Anderson Rubio MD CARDIAC STRESS TEST REPORT CDLSTRESS Observed: 05/11/2018 Status: UNK Source: [facility] 1:01 PM [facility] REPOSITORY INTERPRETING PHYSICIAN: Jc Otero MD ATTENDING PHYSICIAN: Anderson Rubio MD ORDERING/REFERRING PHYSICIAN: DATE(S) OF SERVICE: 05/12/2018 PROCEDURE: Lexiscan stress test PATIENT RELATED INFORMATION: Age: Height: ft in Weight: lbs. oz. Sex: Smokes: Cigars: #Cigs: Pipe: Inactive: Mod.Man.Labor: Heavy Work: Sedentary: Sedentary and Ex. Program: HR Since last meal: REASON FOR PERFORMING TEST: MEDICATIONS: INTERPRETATION: EKG response to exercise: Blood pressure response: Rhythm: Conduction: ST segment: Heart rate response: Fitness classification: Resting ECG: Baseline EKG shows normal sinus rhythm with LVH and T-wave inversion in leads I and aVL. That did not change during stress. Baseline blood pressure was 164/65. Heart rate was 77. During stress, the patient's blood pressure dropped to 151/69. Heart rate was 96. During that time, he was having mild, temporary shortness of breath with minimal pressure, but no EKG changes were noted. CONCLUSION: 1. Negative stress test as well as electrocardiogram and clinical criteria. 2. No response of blood pressure and heart rate to Lexiscan administration. 3. Nuclear images are pending. Jc Otero MD /[id number] [facility] PATIENT NAME: SANDY BRAVO [facility] [address] [place] MEDICAL REC #: [id number] [place] [address] ADMIT DATE: 05/11/18 DISCHARGE DATE: 05/15/18 ATTENDING PHY: Anderson Rubio MD CARDIAC STRESS TEST REPORT [facility] File#: [id number] Verified/Reviewed by [id number] [facility] PATIENT NAME: ASNDY BRAVO [facility] [address] [facility] MEDICAL REC #: [id number] [place] [address] ADMIT DATE: 05/11/18 DISCHARGE DATE: 05/15/18 ATTENDING PHY: Anderson Rubio MD CARDIAC STRESS TEST REPORT CC Observed: 05/11/2018 Status: UNK Source: [facility] 1:01 PM [facility] REPOSITORY DATE OF SERVICE: 05/14/2018 INDICATIONS: Unstable angina with positive stress test. PROCEDURE: Right femoral arteriotomy, right and left coronary cineangiogram, left ventriculogram, right femoral angiogram and a closure device insertion. The patient was brought to the catheterization lab in a fasting state. Both groins were prepped and draped in a sterile fashion. A 6-Kenyan sheath was then placed in the right femoral artery. After this, right and left coronary cineangiography was then performed followed by left ventriculography using 30 of nonionic contrast material. The needle was pulled back into the aorta and pullback pressure was then documented. FINDINGS: 1. Left main: No significant disease. 2. LAD: There is mild diffuse disease in the distal LAD. There also is disease in the diagonal branch which is mild and diffuse. 3. Left circumflex: No significant disease in the circumflex until down to the distal portion. After the takeoff of a large second OM, in the circumflex proper, there is a stenosis of roughly 60% at the ostium. This is a small artery. 4. Ramus intermedius: This is a small artery. There is a high-grade lesion of only 70% at the ostium. 5. RCA: Large dominant artery. No significant blockage is seen. There is a mild 30% stenosis proximally. 6. LV function: Ejection fraction was hyperdynamic with EF of 70% to 75%. This is diastolic dysfunction. 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 Of note, in the ramus area and in the distal circumflex these zones are small arteries and not easily amenable to stenting. One could consider angioplasty alone, but as a diabetic and dialysis patient, she is likely to have restenosis here. I would recommend medications first. She also has subendocardial disease here and I think beta-blockers would be the best answer and also nitrates. Jc Otero MD /[id number] [facility] File#: [id number] [facility] PATIENT NAME: SANDY BRAVO [address] [facility] MEDICAL REC #: [id number] [place] [address] ADMIT DATE: 05/11/18 DISCHARGE DATE: 05/15/18 CARDIAC CATH ATTENDING PHY: Anderson Rubio MD Verified/Reviewed by 05/17/18 1620 [facility] [facility] PATIENT NAME: SANDY BRAVO RoshniJonathan Lizeth White MEDICAL REC #: [id number] [place] [address] ADMIT DATE: 05/11/18 DISCHARGE DATE: 05/15/18 CARDIAC CATH ATTENDING PHY: Anderson Rubio MD EKG Observed: 05/11/2018 Status: UNK Source: [facility] 1:01 PM [facility] REPOSITORY Procedure Date and Time: 05/12/18 1403 Test Reason : Blood Pressure : / mmHG Vent. Rate : 102 BPM Atrial Rate : 102 BPM P-R Int : 176 ms QRS Dur : 096 ms QT Int : 380 ms P-R-T Axes : 065 -44 104 degrees QTc Int : 495 ms Sinus tachycardia Left axis deviation Left ventricular hypertrophy with repolarization abnormality Abnormal ECG When compared with ECG of 11-MAY-2018 15:21, No significant change was found Confirmed by JESUSITA PONCE MD ([id number]) on 05/14/2018 8:36:15 PM Referred By: Anderson Rubio Confirmed By:JESUSITA PONCE MD M.D. DDandT: 05/12/18 1403 TDandT: [facility] PATIENT NAME: SANDY BRAVO [facility] Dr[facility] White MEDICAL REC #: [id number] [place] [address] ADMIT DATE: 05/11/18 DISCHARGE DATE: ATTENDING PHY: Anderson Rubio MD ELECTROCARDIOGRAM REPORT CLB cc: [facility] PATIENT NAME: SANDY BRAVO [facility] Dr. White MEDICAL REC #: [id number] [place] [address] ADMIT DATE: 05/11/18 DISCHARGE DATE: ATTENDING PHY: Anderson Rubio MD ELECTROCARDIOGRAM REPORT CCCASE Observed: 05/11/2018 Status: UNK Source: [facility] 1:01 PM [facility] REPOSITORY Directions to view CARDIAC END OF CASE REPORT in a PDF format To view the Cardiac END OF CASE report you must go to Clinical Review (PWM/Physician Desktop) and - Select the patient - Select the Vist the report is on - Click the Globe on the bottom left and the PDF report will launch (PDF's can't be viewed in [email or web address] directly) \\[email or web address] TROPONIN Collected: 05/11/2018 Status: F Source: [facility] 10:57 AM [facility] REPOSITORY TYPE CODE TESTS RESULT OUT OF REFERENCE UNITS RANGE LAB TROPONIN 0.00 - 0.05 ng/ml I(LOINC) TROPONIN I 0.03 Result Comment: Elevated troponin (above the 99th percentile) usually indicates myocardial ischemia. Results must be interpreted within the clinical setting. 1.Non-ischemic pathology can also cause elevated troponin levels (e.g., acute pulmonary embolism, myocarditis, pericarditis, heart failure, intracranial injury, rhabdomyolisis, sepsis, shock and renal insufficiency). 2.Approximately 1% of healthy adults have elevated troponin levels. 3.Analytical false positive results rarely occur(due to multiple interferences such as heterophile antibodies). Performed By: #### [id number] #### [facility],[address] [place] [address] CBC Collected: 05/11/2018 Status: F Source: [facility] 7:50 [facility] REPOSITORY TYPE CODE TESTS RESULT OUT OF RANGE REFERENCE UNITS LAB CBC(LOINC) CBC Result Comment: CBC-COMPLETE BLOOD COUNT LAB WBC(LOINC) 4.5 - 10.8 x 10EE3/UL WBC 6.0 LAB RBC(LOINC) 4.10 - x 10EE6/UL 5.30 RBC Low 3.29 LAB HEMOGLOBIN(LOINC) 12.0 - g/dl 16.0 Low HEMOGLOBIN 10.0 LAB HEMATOCRIT(LOINC) 34.0 - % 46.0 Low HEMATOCRIT 29.4 LAB MCV(LOINC) 80 - 99 fl MCV 89 LAB MCH(LOINC) 27 - 33 pg MCH 30 LAB MCHC(LOINC) 32 - 36 X10 3 MCHC 34 LAB RDW/CV(LOINC) 12.0 - % 15.6 RDW/CV 13.9 LAB PLATELET(LOINC) 150 - 450 x10EE3/UL PLATELET 233 LAB MPV(LOINC) 6.6 - 10.5 fl MPV 7.2 Result Comment: AUTOMATED DIFFERENTIAL LAB NEUT %(LOINC) 46.0 - 76.0 % NEUT % 56.5 LAB LYMPH %(LOINC) 20.0 - 45.0 % LYMPH % 33.1 LAB MONOS %(LOINC) 0.0 - 10.0 % MONOS % 6.3 LAB EO %(LOINC) 0.0 - 7.0 % EO % 3.0 LAB BASO %(LOINC) 0.0 - 2.0 % BASO % 1.1 LAB Lymph #(LOINC) 0.80 - 2.80 x10EE3/U L Lymph # 2.00 LAB Neut #(LOINC) 1.50 - 7.10 x10EE3/U L Neut # 3.40 LAB Maury #(LOINC) 0.20 - 1.00 x10EE3/U L Maury # 0.40 LAB EO #(LOINC) 0.00 - 0.50 x10EE3/U L EO # 0.20 LAB Baso #(LOINC) 0.00 - 0.10 x10EE3/U L Baso # 0.10 LAB MANUAL DIFF(LOINC) MANUAL DIFF N/A LAB MORPHOLOGY(LOINC ) MORPHOLOGY N/A Result Comment: {CD] Performed By: #### [id number] #### [place] [id number] TROPONIN Collected: 05/11/2018 Status: F Source: [facility] 7:50 AM [facility] REPOSITORY TYPE CODE TESTS RESULT OUT OF REFERENCE UNITS RANGE LAB TROPONIN 0.00 - 0.05 ng/ml I(LOINC) TROPONIN I 0.02 Result Comment: Elevated troponin (above the 99th percentile) usually indicates myocardial ischemia. Results must be interpreted within the clinical setting. 1.Non-ischemic pathology can also cause elevated troponin levels (e.g., acute pulmonary embolism, myocarditis, pericarditis, heart failure, intracranial injury, rhabdomyolisis, sepsis, shock and renal insufficiency). 2.Approximately 1% of healthy adults have elevated troponin levels. 3.Analytical false positive results rarely occur(due to multiple interferences such as heterophile antibodies). Performed By: #### [id number] #### [place] [id number] BNP (B-TYPE NATRIURETIC Collected: 05/11/2018 Status: F Source: [facility]) 7:50 AM [facility] REPOSITORY TYPE CODE TESTS RESULT OUT OF RANGE REFERENCE UNITS LAB BNP(LOINC) 1 - 100 pg/ml High BNP 391 Performed By: #### [id number] #### [facility],[address] [place] [address] CMP WITH EGFR Collected: 05/11/2018 Status: F Source: [facility] 7:50 AM [facility] REPOSITORY TYPE CODE TESTS RESULT OUT OF RANGE REFERENCE UNITS LAB CMP with eGFR(LOINC) CMP with eGFR Result Comment: COMPREHENSIVE METABOLIC PANEL LAB SODIUM(LOINC) 136 - 145 mmol/l SODIUM 141 LAB POTASSIUM(LOINC) 3.5 - 5.1 mmol/L POTASSIUM 4.7 LAB CHLORIDE(LOINC) 98 - 107 mmol/L CHLORIDE 102 LAB CO2(LOINC) 21.0 - mmol/L 31.0 CO2 28.0 LAB GLUCOSE(LOINC) 74 - 106 mg/dl GLUCOSE High 119 LAB BUN(LOINC) 6 - 20 mg/dl BUN High 49 LAB CREATININE(LOINC) 0.6 - 1.2 mg/dl High CREATININE 5.3 LAB AST/SGOT(LOINC) 13 - 39 U/L AST/SGOT 17 LAB ALK PHOS(LOINC) 38 - 126 U/L ALK PHOS 112 LAB CALCIUM(LOINC) 8.6 - mg/dl 10.2 CALCIUM 9.2 LAB TOTAL 6.4 - 8.3 g/dl PROTEIN(LOINC) TOTAL Low PROTEIN 6.3 LAB ALBUMIN(LOINC) 3.4 - 4.8 g/dL ALBUMIN 3.6 LAB GLOBULIN(LOINC) 1.5 - 3.8 G/DL GLOBULIN 2.7 LAB A/G RATIO(LOINC) 0.9 - 1.6 A/G RATIO 1.3 LAB TOTAL BILI(LOINC) 0.0 - 1.5 mg/dl TOTAL BILI 0.4 LAB B/C RATIO(LOINC) 0 - 30 ratio B/C RATIO 9 LAB ALT/SGPT(LOINC) 8 - 35 U/L ALT/SGPT 12 LAB ANION GAP(LOINC) 10 - 20 mmol/L ANION GAP 16 LAB AGE(LOINC) years AGE 53 LAB eGFR(LOINC) 60 - 999 ML/MINUTE eGFR Low 8 LAB eGFR(AA)(LOINC) 60 - 999 ML/MINUTE eGFR(AA) Low 10 Result Comment: ACCORDING TO THE NATIONAL KIDNEY DISEASE EDUCATION PROGRAM(NKDE), A NORMAL eGFR IS A VALUE GREATER THAN OR EQUAL TO 60 ML/MIN/1.73 SQ METERS. CHRONIC KIDNEY DISEASE: <60mL/MIN/1.73 SQ METERS KIDNEY FAILURE: <15mL/MIN/1.73 SQ METERS THIS TEST SHOULD ONLY BE USED FOR PATIENTS 18 YEARS OF AGE AND OLDER. Performed By: #### [id number] #### [facility],[address] [place] [address] CHEST 1 VIEW Observed: 05/11/2018 Status: F [facility] [place] [id number] Patient: SANDY BRAVO Phone#: : [phone] Age: 53 Gender: F Pt. Type: ER Account: [id number] Location: [facility] Ordering: ARTIE DOUGLAS Exam Date: 05/11/2018/5:52 Family Phys: MALDONADO DENNY Charge Code: [id number] Physician: Yancey Order #: [id number] DLP Dose#: PROCEDURE: X-RAY CHEST 1 VIEW COMPARISON: [facility], XR, CHEST 1 VIEW, 01/14/2018, 13:30. INDICATIONS: Chest Pain FINDINGS: LUNGS: Normal. No significant pulmonary parenchymal abnormalities. VASCULATURE: Normal. Unremarkable pulmonary vasculature. CARDIAC: Cardiac silhouette is mildly enlarged. MEDIASTINUM: Normal. No visible mass or adenopathy. PLEURA: Normal. No effusion or pleural thickening. BONES: There are degenerative changes of the spine. OTHER: Right central catheter tip terminates in the right atrium. Monitoring leads project past the thorax. CONCLUSION: 1. No acute pulmonary parenchymal abnormality. 2. Mild cardiomegaly. Dictated by: Amanda Wolf MD on 05/11/2018 at 8:44 Approved by: Amanda Wolf MD on 05/11/2018 at 8:44 EMERGENCY REPORT Observed: 05/11/2018 Status: F [facility] AM [facility] EMERGENCY ROOM REPORT NAME ACCOUNT SEX AGE ADMIT DISCHARGE PT MED. RECORD# NUMBER DATE DATE TYPE SANDY BRAVO [id number] 53 05/11/18 05/11/18 3 [id number] ROOM: ER DATE OF : 1965 DICTATING PHYSICIAN: Artie Douglas CHIEF COMPLAINT: This is a 53-year-old female with past medical history of end-stage renal disease, hypertension who presents with a complaint of chest pain that began last night before bed. HISTORY OF PRESENT ILLNESS: Patient describes it as retrosternal and aching as well as constant. Patient states that she had trouble sleeping due to this pain. She describes it as nonradiating. Denies any shortness of breath, nausea, vomiting, or diaphoresis. Denies any trauma to the area. Patient states she gets her dialysis [facility]. Patient has not missed any dialysis sessions. States she has had bouts of chest pain before in the past that have been worked up negatively. 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 PAST MEDICAL HISTORY: End-stage renal disease, hypertension, and diabetes. PAST SURGICAL HISTORY: Left-sided AV fistula and right tunnel dialysis catheter. SOCIAL HISTORY: She is a former smoker. Denies any drug or alcohol abuse. REVIEW OF SYSTEMS: Ten systems reviewed and otherwise negative unless stated above. PHYSICAL EXAMINATION: Patient is resting comfortably in bed. Vital signs on arrival: Temperature 97.7, pulse 90, respirations 22, blood pressure 198/80, O2 saturation 97%. Head is normocephalic without signs of trauma. Neck is supple, nontender. Trachea midline. No lymphadenopathy. Lungs are clear to auscultation bilaterally without any crackles or wheezing. Heart regular rate. S1/S2 appreciated without murmurs. Chest: Evidence of right tunnel dialysis catheter. Abdomen is soft, nontender, nondistended. No hepatosplenomegaly. Extremities: No evidence of pedal edema. Patient has evidence of a patent left AV fistula. Neurologic: Alert and oriented. Psychiatric: Mood and affect normal. DIAGNOSTIC DATA: Labs will be drawn to assess for CBC, BMP and troponin. Chest x-ray shows no evidence of fluid overload or other acute cardiopulmonary process. Central venous catheter appears to be in place. Original EKG upon arrival shows no evidence of acute cardiac ischemia. EMERGENCY DEPARTMENT COURSE AND TREATMENT: Patient appears well and Page 1 of 2 SANDY BRAVO Emergency Room Report nontoxic. Difficult IV access at this time. Patient will be signed out to Dr. Toni Del Valle at 7:18. DIAGNOSIS: Dictated By: Artie Douglas DO 05/11/18 07:19 JOB #: [id number] Transcribed By: shaina 05/11/18 21:23 Electronically signed by: E-SIGN: Artie Douglas D.O. 06/20/18 21:07 Page 2 of 2 SANDY BRAVO Emergency Room Report PROGRESS Observed: 05/10/2018 Status: COMPLETED Source: [place] 6:36 PM [facility] REPOSITORY HNO ID: [id number] Author: Maldonado Denny Service: (none) Author Type: Physician Type: Progress Notes Filed: 05/11/2018 8:16 PM Note Text: This note was created using [employer]. Subjective Sandy Bravo is a 53 year old female. Her diabetes mellitus and hypertension appears to have improved. She continued on dialysis through her port, as her fistula was not yet functional. Refills were needed. She had no other concerns. She was trying to get a hearing aid. 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 insulin degludec (TRESIBA) 100 unit/mL (3 mL) injection Inject 40 Units subcutaneously daily at bedtime. cloNIDine HCl (CATAPRES) 0.3 mg tablet Take 1 tablet by mouth twice daily. Morning dose held for dialysis days: Mon, Mon, Monday. calcium acetate (PHOSLO) 667 mg capsule Take 2 capsules by mouth three times daily with meals. NEPHRO-SONDRA 0.8 mg tab Take 1 tablet by mouth once daily. lisinopril (ZESTRIL, PRINIVIL) 20 mg tablet Take 1 tablet by mouth twice daily. amLODIPine (NORVASC) 10 mg tablet Take 1 tablet by mouth once daily. insulin needles, DISPOSABLE, (PEN NEEDLE) 31 gauge x 5/16 ndle Use one needle per dose. one per day. metoprolol tartrate, short acting, (LOPRESSOR) 50 mg tablet Take 1 tablet by mouth twice daily. atorvastatin (LIPITOR) 40 mg tablet Take 1 tablet by mouth daily at bedtime. insulin aspart (NOVOLOG) 100 unit/mL soln Inject eight (8) units three times a day with meals blood sugar diagnostic (BLOOD GLUCOSE TEST) test strip Test blood sugar(s) 3 times daily. Dx: Type 2 DM - Uncontrolled E11.65 Insulin: Yes Blood-Glucose Meter (BLOOD GLUCOSE MONITORING) monitoring kit 1 Each three times daily. E11.65. On insulin. Insulin Syringe-Needle U-100 (BD INSULIN SYRINGE ULTRA-FINE) 1 mL 29 gauge x 1/2 syrg Use twice daily as directed. aspirin, enteric coated (ECOTRIN LOW STRENGTH) 81 mg EC tablet Take 1 tablet by mouth once daily. No current facility-administered medications for this visit. Review of Systems Constitutional: Negative. HENT: Positive for hearing loss. Respiratory: Negative. Cardiovascular: Negative. Gastrointestinal: Negative. Genitourinary: Negative. Neurological: Positive for numbness. Objective BP 132/54 (BP Site: Right Arm, BP Position: Sitting, BP Cuff Size: Regular Adult) Pulse 76 Resp 12 Wt 72.1 kg (159 lb) BMI 28.62 kg/m? Physical Exam Constitutional: No distress. Eyes: Conjunctivae are normal. No scleral icterus. Neck: No JVD present. Dialysis cath. In place, right IC. Cardiovascular: Regular rhythm. Exam reveals no gallop and no friction rub. No murmur heard. Pulmonary/Chest: Breath sounds normal. Musculoskeletal: She exhibits edema. Trace edema. Skin: There is erythema. Feet with dependent erythema. Feet: Shoes and socks removed, No deformities, ulcers, calluses, trace DP distal pulses, sensitive to 10 gm monofilament and nails notable for Hypertrophic or Yellowish Assessment and Plan 1. 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 Essential hypertension - ICD9: 401.9, ICD10: I10 - good control - Continue current medication(s) - Goal of BP <130/80 - LISINOPRIL 20 MG TABLET - METOPROLOL TARTRATE 50 MG TABLET - CLONIDINE HCL 0.3 MG TABLET 3. Other hyperlipidemia - ICD9: 272.4, ICD10: E78.4 - good control - Continue current medication. - ATORVASTATIN 40 MG TABLET 4. Screen for colon cancer - ICD9: V76.51, ICD10: Z12.11 - FECAL OCCULT BLOOD TEST 5. CKD (chronic kidney disease) stage V requiring chronic dialysis (HCC) - ICD9: 585.6, V45.11, ICD10: N18.6, Z99.[address] Bonilla, vascular surgeon was working on fistula. Maldonado Denny MD CNOV Observed: 05/10/2018 Status: COMPLETED Source: [place] 5:[address] [facility] REPOSITORY Office Visit (INTMWS) SANDY BRAVO ([id number]) 1965 F Date Time Provider Department 05/10/18 5:40 PM MALDONADO DENNY INTMWS During your visit today, we recorded the following information about you: Pulse Respiration Blood pressure Weight 76/minute 12/minute 132/54 72.1 kg Maldonado Denny MD 05/11/2018 8:16 PM Signed This note was created using [employer]. Subjective Sandy Bravo is a 53 year old female. Her diabetes mellitus and hypertension appears to have improved. She continued on dialysis through her port, as her fistula was not yet functional. Refills were needed. She had no other concerns. She was trying to get a hearing aid. 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 insulin degludec (TRESIBA) 100 unit/mL (3 mL) injection Inject 40 Units subcutaneously daily at bedtime. cloNIDine HCl (CATAPRES) 0.3 mg tablet Take 1 tablet by mouth twice daily. Morning dose held for dialysis days: Mon, Mon, Monday. calcium acetate (PHOSLO) 667 mg capsule Take 2 capsules by mouth three times daily with meals. NEPHRO-SONDRA 0.8 mg tab Take 1 tablet by mouth once daily. lisinopril (ZESTRIL, PRINIVIL) 20 mg tablet Take 1 tablet by mouth twice daily. amLODIPine (NORVASC) 10 mg tablet Take 1 tablet by mouth once daily. insulin needles, DISPOSABLE, (PEN NEEDLE) 31 gauge x 5/16 ndle Use one needle per dose. one per day. metoprolol tartrate, short acting, (LOPRESSOR) 50 mg tablet Take 1 tablet by mouth twice daily. atorvastatin (LIPITOR) 40 mg tablet Take 1 tablet by mouth daily at bedtime. insulin aspart (NOVOLOG) 100 unit/mL soln Inject eight (8) units three times a day with meals blood sugar diagnostic (BLOOD GLUCOSE TEST) test strip Test blood sugar(s) 3 times daily. Dx: Type 2 DM - Uncontrolled E11.65 Insulin: Yes Blood-Glucose Meter (BLOOD GLUCOSE MONITORING) monitoring kit 1 Each three times daily. E11.65. On insulin. Insulin Syringe-Needle U-100 (BD INSULIN SYRINGE ULTRA-FINE) 1 mL 29 gauge x 1/2 syrg Use twice daily as directed. aspirin, enteric coated (ECOTRIN LOW STRENGTH) 81 mg EC tablet Take 1 tablet by mouth once daily. No current facility-administered medications for this visit. Review of Systems Constitutional: Negative. HENT: Positive for hearing loss. Respiratory: Negative. Cardiovascular: Negative. Gastrointestinal: Negative. Genitourinary: Negative. Neurological: Positive for numbness. Objective BP 132/54 (BP Site: Right Arm, BP Position: Sitting, BP Cuff Size: Regular Adult) Pulse 76 Resp 12 Wt 72.1 kg (159 lb) BMI 28.62 kg/m? Physical Exam Constitutional: No distress. Eyes: Conjunctivae are normal. No scleral icterus. Neck: No JVD present. Dialysis cath. In place, right IC. Cardiovascular: Regular rhythm. Exam reveals no gallop and no friction rub. No murmur heard. Pulmonary/Chest: Breath sounds normal. Musculoskeletal: She exhibits edema. Trace edema. Skin: There is erythema. Feet with dependent erythema. Feet: Shoes and socks removed, No deformities, ulcers, calluses, trace DP distal pulses, sensitive to 10 gm monofilament and nails notable for Hypertrophic or Yellowish Assessment and Plan 1. 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 Essential hypertension - ICD9: 401.9, ICD10: I10 - good control - Continue current medication(s) - Goal of BP <130/80 - LISINOPRIL 20 MG TABLET - METOPROLOL TARTRATE 50 MG TABLET - CLONIDINE HCL 0.3 MG TABLET 3. Other hyperlipidemia - ICD9: 272.4, ICD10: E78.4 - good control - Continue current medication. - ATORVASTATIN 40 MG TABLET 4. Screen for colon cancer - ICD9: V76.51, ICD10: Z12.11 - FECAL OCCULT BLOOD TEST 5. CKD (chronic kidney disease) stage V requiring chronic dialysis (HCC) - ICD9: 585.6, V45.11, ICD10: N18.6, Z99.[address] Bonilla, vascular surgeon was working on fistula. 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 (HCC) [E11.21, E11.65] Other Visit Diagnoses:Essential hypertension [I10] Other hyperlipidemia [E78.4] Screen for colon cancer [Z12.11] CKD (chronic kidney disease) stage V requiring chronic dialysis (HCC) [N18.6, Z99.2] Order(s):amLODIPine (NORVASC) 10 mg tabletTake 1 tablet by mouth once daily.Disp: 90 tabletRfl: 1 lisinopril (ZESTRIL, PRINIVIL) 20 mg tabletTake 1 tablet by mouth twice daily.Disp: 90 tabletRfl: 1 metoprolol tartrate, short acting, (LOPRESSOR) 50 mg tabletTake 1 tablet by mouth twice daily.Disp: 180 tabletRfl: 1 atorvastatin (LIPITOR) 40 mg tabletTake 1 tablet by mouth daily at bedtime.Disp: 90 tabletRfl: 1 insulin aspart U-100 (NOVOLOG U-100 INSULIN ASPART) 100 unit/mL solnInject eight (8) units three times a day with mealsDisp: 1 VialRfl: 5 FECAL OCCULT BLOOD TEST [SQIFOBT] Order #: [id number] FUTURE cloNIDine HCl (CATAPRES) 0.3 mg tabletTake 1 tablet by mouth twice daily. Morning dose postponed to 3pm for dialysis days: Mon, Mon, Monday..Disp: Rfl: HEMOGLOBIN A1C (POC) [2516571] Order #: [id number]. #:[id number] ALBUMIN/CREAT RATIO RND UR [SQUACR] Order #: [id number] FUTURE Prescriptions as of 05/10/2018 Sig: AMLODIPINE 10 MG TABLET Take 1 tablet by mouth once d* LISINOPRIL 20 MG TABLET Take 1 tablet by mouth twice * METOPROLOL TARTRATE 50 MG TAB* Take 1 tablet by mouth twice * ATORVASTATIN 40 MG TABLET Take 1 tablet by mouth daily * INSULIN ASPART U-100 100 UNI* Inject eight (8) units three * CLONIDINE HCL 0.3 MG TABLET Take 1 tablet by mouth twice * LEVOTHYROXINE 112 MCG TABLET TAKE ONE TABLET BY MOUTH SILVIA* INSULIN DEGLUDEC (U-100) 100 * Inject 40 Units subcutaneousl* CALCIUM ACETATE 667 MG CAPSULE Take 2 capsules by mouth thre* NEPHRO-SONDRA 0.8 MG TABLET Take 1 tablet by mouth once d* PEN NEEDLE, DIABETIC 31 GAUGE* Use one needle per dose. one * BLOOD SUGAR DIAGNOSTIC STRIPS Test blood sugar(s) 3 times d* BLOOD-GLUCOSE METER KIT 1 Each three times daily. E11* INSULIN SYRINGE-NEEDLE U-100 * Use twice daily as directed. * ASPIRIN 81 MG TABLET,DELAYED * Take 1 tablet by mouth once d* Problem List As Of Date 05/10/2018 Noted Resolved Calculus of ureter [N20.1] INVALID FOR*03/22/2012 Urinary tract infection, site not specified [N3*INVALID FOR*03/22/2012 Renal colic [N23] INVALID FOR*03/22/2012 Uncontrolled type 2 diabetes mellitus with prot*INVALID FOR* HTN (hypertension) [I10] INVALID FOR* Hyperlipidemia [E78.5] INVALID FOR* Depression [F32.9] INVALID FOR* Hypothyroid [E03.9] INVALID FOR* ASCVD (arteriosclerotic cardiovascular disease)*INVALID FOR* Proteinuria [R80.9] INVALID FOR* CKD (chronic kidney disease) stage 3, GFR 30-59*INVALID FOR*05/02/2017 CKD (chronic kidney disease) stage 4, GFR 15-29*INVALID FOR*03/02/2018 More... CKD (chronic kidney disease) stage V requiring *INVALID FOR* More... Prescriptions ordered this encounter Disp Refills Start End AMLODIPINE 10 MG TABLET 90 t* 1 05/10/2018 Route: ORAL Sig: Take 1 tablet by mouth once daily. LISINOPRIL 20 MG TABLET 90 t* 1 05/10/2018 Route: ORAL Sig: Take 1 tablet by mouth twice daily. METOPROLOL TARTRATE 50 MG TABLET 180 * 1 05/10/2018 Route: ORAL Sig: Take 1 tablet by mouth twice daily. ATORVASTATIN 40 MG TABLET 90 t* 1 05/10/2018 Route: ORAL Sig: Take 1 tablet by mouth daily at bedtime. INSULIN ASPART U-100 100 UNIT/ML [place]* 1 Vi* 5 05/10/2018 Sig: Inject eight (8) units three times a day with meals CLONIDINE HCL 0.3 MG TABLET 05/10/2018 Class: Med Update Route: ORAL Sig: Take 1 tablet by mouth twice daily. Morning dose postponed to 3pm for dialysis days: Mon, Mon, Monday.. Medications Discontinued During This Encounter amLODIPine (NORVASC) 10 mg tablet 90 t* 0 02/21/2018 05/10/2018 Route: ORAL Sig: Take 1 tablet by mouth once daily. Disc: Reason for discontinue is not on file. lisinopril (ZESTRIL, PRINIVIL) 20 mg* 03/01/2018 05/10/2018 Class: Historical Med Route: ORAL Sig: Take 1 tablet by mouth twice daily. Disc: Reason for discontinue is not on file. metoprolol tartrate, short acting, (* 180 * 1 10/18/2017 05/10/2018 Route: ORAL Sig: Take 1 tablet by mouth twice daily. Disc: Reason for discontinue is not on file. atorvastatin (LIPITOR) 40 mg tablet 90 t* 1 10/18/2017 05/10/2018 Route: ORAL Sig: Take 1 tablet by mouth daily at bedtime. Disc: Reason for discontinue is not on file. insulin aspart (NOVOLOG) 100 unit/mL* 1 Vi* 5 10/18/2017 05/10/2018 Sig: Inject eight (8) units three times a day with meals Disc: Reason for discontinue is not on file. cloNIDine HCl (CATAPRES) 0.3 mg tabl* 03/01/2018 05/10/2018 Class: Med Update Route: ORAL Sig: Take 1 tablet by mouth twice daily. Morning dose held for dialysis days: Mon, Mon, Monday. Disc: Reason for discontinue is not on file. Disposition: Return in about 3 months (around 08/09/2018). Follow-up and Disposition History Recorded Encounter Status:Closed by MALDONADO DENNY MD on 05/11/18 GLUCOSE METER Collected: 05/01/2018 Status: F Source: [facility] 4:26 PM [facility] REPOSITORY TYPE CODE TESTS RESULT OUT OF REFERENCE UNITS RANGE LAB L500.73032 85-125 MG/DL Low GLUCOSE METER 84 CBC Collected: 05/01/2018 Status: F Source: [facility] 11:38 AM [facility] REPOSITORY Order Comment: [place]: M TYPE CODE TESTS RESULT OUT OF RANGE REFERENCE UNITS LAB L200.26195 4.5-11.0 K/CU MM Normal WBC 6.6 LAB L200.12837 3.90-5.30 M/CU MM Low RBC 3.53 LAB L200.24255 11.5-15.5 G/DL Low HGB 10.5 LAB L200.18459 35.0-47.0 % Low HCT 32.0 LAB L200.63224 80.0-99.0 fl Normal MCV 90.7 LAB L200.21808 32.0-36.0 GM/DL Normal MCHC 32.8 LAB L200.86314 11-14.5 Normal RDW 12.7 LAB L200.26428 9.4-12.4 Normal MPV 9.4 LAB L200.94887 150-450 K/CU MM Normal PLT 202 LAB L200.58345 Less than 1 % Normal NRBC 0.0 Performed By: #### L200.15012 #### [facility] [address] [place] [id number] RENAL Collected: 05/01/2018 Status: F Source: [facility] 11:37 AM [facility] REPOSITORY Order Comment: [place]: TYPE CODE TESTS RESULT OUT OF RANGE REFERENCE UNITS LAB L500.68075 136-145 MMOL/L Normal NA 138 LAB L500.83094 3.5-5.1 MMOL/L High K 5.2 LAB L500.35109 98-107 MMOL/L Normal CL 101 LAB L500.30586 21-32 MMOL/L Normal CO2 27 LAB L500.57293 5-16 MMOL/L Normal AGAP 10 LAB L500.13080 70-100 MG/DL High GLU 155 Result Comment: 70-100- Normal Fasting; 100-125 Impaired Fasting; greater than 126 on more than one result- Diabetes. ADA guidelines. Results may be falsely elevated after the administration of Sulfapyridine. Results may be falsely depressed after the administration of Sulfasalazine. LAB L500.05621 7-26 MG/DL High BUN 42 LAB L500.05790 0.510-0.950 MG/DL High CREAT 4.360 Result Comment: Patients receiving either N-Acetylcysteine (NAC) or Metamizole prior to venipuncture, may have falsely depressed results. LAB L500.96736 15-24 Low BUN/CREA 10 LAB L500.05459 3.2-5.0 GM/DL Low ALBUMIN 3.1 LAB L500.08625 8.5-10.1 MG/DL Normal CALCIUM TOTAL 9.3 LAB L500.77024 2.5-4.9 MG/DL High PHOS 5.1 Performed By: #### L500.05673, L500.20470 #### [facility] [place] [address] GFR EST Collected: 05/01/2018 Status: F Source: [facility] 11:37 AM [facility] REPOSITORY Order Comment: [place]: M TYPE CODE TESTS RESULT OUT OF RANGE REFERENCE UNITS LAB L500.14739 ML/MIN Normal IF non-AFR 11 AMER LAB L500.42989 ML/MIN Normal IF 13 AMER Performed By: #### L500.55024, L500.67187 #### [facility] [address] [place] [address] OR Observed: 05/01/2018 Status: UNK Source: [facility] 10:51 AM [facility] REPOSITORY DATE OF SERVICE: 05/01/2018 PREOPERATIVE DIAGNOSIS: Failing arteriovenous fistula, nonmaturation left upper extremity. POSTOPERATIVE DIAGNOSIS: Failing arteriovenous fistula, nonmaturation left upper extremity. OPERATION: 1. Ultrasound guided access to the radial artery, antegrade, left upper extremity. 2. Arteriogram of left upper extremity with fistulogram. 3. Angioplasty of radial artery, distal and mid with 3 mm x 6 cm counter balloon x2. COMPLICATIONS: None. SURGEON: Héctor Bonilla MD ANESTHESIA: IV sedation. Monitored care by Dr. Bonilla. MEDICATIONS: 1. Versed 1 mg. 2. Fentanyl 25 mg. TOTAL TIME: 36 minutes. X-RAY TIME: 7.5. DOSE: 12. PROCEDURE: The patient was brought to the angio-suite where she was placed in the supine position. Left arm was prepped and draped in the usual fashion. Ultrasound guidance was used to gain access to the left brachial artery using single wire micropuncture technique in an antegrade fashion. Exchanged out for a 4-Kenyan sheath over a guidewire which was fashioned down the radial artery. Angiogram of the left upper extremity revealed multiple stenoses through the mid and distal radial artery. The fistula was dilated about 4-5 mm. The patient was systemically heparinized. was exchanged out for an 0.14 wire down the radial artery. Angioplastied with a 3.6. After 5 minutes a counter balloon to 15 atmospheres for two 1 minute inflations showed significant improvement in flow to the radial artery. At this point I felt we had maximized her inflow. Sheath was pulled. Pressure was held after 10 mg of Protamine was given to provide hemostasis. The patient tolerated the procedure well. [facility] PATIENT NAME: SANDY BRAVO Dr. [facility] MEDICAL REC #: [id number] [place] [address] ADMIT DATE: DISCHARGE DATE: OPERATIVE REPORT ATTENDING PHY: Héctor Bonilla MD Héctor Bonilla MD JUAN [id number] SSI File#: [id number] Disclaimer - This document may contain phonetic, minor grammatical errors, or errors due to voice quality. Verified/Reviewed by 05/03/18 Stefan DARBY [facility] PATIENT NAME: SANDY BRAVO [facility] MEDICAL REC #: [id number] [place] [address] ADMIT DATE: DISCHARGE DATE: OPERATIVE REPORT ATTENDING PHY: Héctor Bonilla MD BRAIN W/WO CONTRAST Observed: 04/05/2018 Status: F Source: [place] 1:30 PM [facility] REPOSITORY [facility] Imaging Services [facility] [place] [address] Brain W/WO Contrast MR#: [id number] Acct: [id number] Name: SANDY BRAVO Rep #: [id number] : 1965 F 53 From: Pennie Lam MD PCP: Maldonado Denny MD Status: REG CLI Study: Brain W/WO Contrast Date of Exam: 04/05/18 Exam# [id number] Ordering Dr: Lane Kirby MD STUDY: MRI BRAIN AND INTERNAL AUDITORY CANALS WITH AND WITHOUT CONTRAST REASON FOR EXAM: Female, 53 years old. 7 right sided ear deafness and is beginning of January. TECHNIQUE: Standardized multiplanar fat and water weighted pulse sequences were obtained. 7 ml of Gadavist contrast material was administered intravenously for the contrast portion of the examination. COMPARISON: None. FINDINGS: Normal bilateral temporal bones. Normal bilateral internal auditory canals. There is no demonstrated intracanalicular or cisternal vestibular schwannoma (acoustic neuroma). There is no enhancement of the bilateral VIIth or VIIIth cranial nerves. Normal bilateral cochlea, vestibules and semicircular canals. There is mild cerebral atrophy with widening of the extra- axial spaces and ventricular dilatation. There are a limited number of small white matter hyperintensities, distributed throughout the deep white matter tracts of the cerebral hemispheres, consistent with mild chronic white matter ischemic changes. There are apparent areas of restricted diffusion in the temporal lobes. This is likely artifactual rather than related to acute infarct. Normal bilateral basal ganglia. Normal thalami. There is no extra-axial fluid accumulation. Normal flow voids within the major intracranial circulation suggesting patency by spin echo criteria. Normal venous enhancement. There is no enhancing intra-axial or extra-axial abnormality. Normal sella turcica, pituitary gland, infundibular stalk, optic chiasm and hypothalamus. Normal tectal plate and pineal gland. There are chronic white matter ischemic changes of the jhonny. The midbrain and medulla are otherwise normal. Normal cerebellum. Normal basal cisterns. No demonstrated orbital abnormality, within the constraints of a routine brain study. Normal visualized paranasal sinuses. Normal calvarium and skull base. Normal visualized soft tissue structures. There are mild multilevel degenerative changes of the cervical spine. MRI/Brain W/WO Contrast IMPRESSION: 1. Involutional changes of the brain, as described above. 2. No MR evidence for cerebellopontine angle or internal auditory canal mass. Electronically Signed: Pennie Lam MD at 12:03 EDT , Service support , CC: Lane Kirby MD; Maldonado Denny MD Fiber Optic Splicer: Signed GLUCOSE METER Collected: 03/20/2018 Status: F Source: [facility] 3:50 PM [facility] REPOSITORY TYPE CODE TESTS RESULT OUT OF REFERENCE UNITS RANGE LAB L500.61130 85-125 MG/DL High GLUCOSE METER 193 CBC Collected: 03/20/2018 Status: F Source: [facility] 11:50 AM [facility] REPOSITORY Order Comment: [place]: M TYPE CODE TESTS RESULT OUT OF RANGE REFERENCE UNITS LAB L200.84328 4.5-11.0 K/CU MM Normal WBC 8.7 LAB L200.18715 3.90-5.30 M/CU MM Low RBC 3.72 LAB L200.70397 11.5-15.5 G/DL Low HGB 10.9 LAB L200.92262 35.0-47.0 % Low HCT 33.4 LAB L200.58929 80.0-99.0 fl Normal MCV 89.8 LAB L200.84617 32.0-36.0 GM/DL Normal MCHC 32.6 LAB L200.13806 11-14.5 Normal RDW 12.8 LAB L200.46020 9.4-12.4 Normal MPV 9.6 LAB L200.11813 150-450 K/CU MM Normal PLT 225 LAB L200.65413 Less than 1 % Normal NRBC 0.0 Performed By: #### L200.15692 #### [facility] [address] [place] [address] RENAL Collected: 03/20/2018 Status: F Source: [facility] 11:50 AM [facility] REPOSITORY Order Comment: [place]: M TYPE CODE TESTS RESULT OUT OF RANGE REFERENCE UNITS LAB L500.34018 136-145 MMOL/L Normal NA 139 LAB L500.89493 3.5-5.1 MMOL/L Normal K 4.7 LAB L500.87072 98-107 MMOL/L Normal CL 102 LAB L500.79306 21-32 MMOL/L Normal CO2 27 LAB L500.29117 5-16 MMOL/L Normal AGAP 10 LAB L500.64436 70-100 MG/DL High GLU 252 Result Comment: 70-100- Normal Fasting; 100-125 Impaired Fasting; greater than 126 on more than one result- Diabetes. ADA guidelines. Results may be falsely elevated after the administration of Sulfapyridine. Results may be falsely depressed after the administration of Sulfasalazine. LAB L500.69346 7-26 MG/DL High BUN 36 LAB L500.22121 0.510-0.950 MG/DL High CREAT 3.840 Result Comment: Patients receiving either N-Acetylcysteine (NAC) or Metamizole prior to venipuncture, may have falsely depressed results. LAB L500.35598 15-24 Low BUN/CREA 9 LAB L500.52167 3.2-5.0 GM/DL Low ALBUMIN 3.1 LAB L500.00135 8.5-10.1 MG/DL Low CALCIUM TOTAL 8.4 LAB L500.23961 2.5-4.9 MG/DL Normal PHOS 4.7 Performed By: #### L500.95437, L500.95470 #### [facility] [address] [place] [address] GFR EST Collected: 03/20/2018 Status: F Source: [facility] 11:50 AM [facility] REPOSITORY Order Comment: [place]: M TYPE CODE TESTS RESULT OUT OF RANGE REFERENCE UNITS LAB L500.82584 ML/MIN Normal IF non-AFR 12 AMER LAB L500.70530 ML/MIN Normal IF 15 AMER Performed By: #### L500.01011, L500.99474 #### [facility] [address] [place] [address] OR Observed: 03/20/2018 Status: UNK Source: [facility] 10:59 AM [facility] REPOSITORY DATE OF SERVICE: 03/20/2018 PREOPERATIVE DIAGNOSIS: Non-maturation of left radiocephalic arteriovenous fistula with stenosis of the radial artery. POSTOPERATIVE DIAGNOSIS: Non-maturation of left radiocephalic arteriovenous fistula with stenosis of the radial artery. PROCEDURE: 1. Ultrasound guided antegrade access to the left radial artery. 2. Left upper extremity arteriogram with fistulogram. 3. Angioplasty of left radial artery with a 2.5 mm x 120 mm Bradford balloon x2. 4. Angioplasty of the left radial artery with a 3 mm x 120 mm Bradford balloon x2. 5. Angioplasty of mid-left radial artery with a 3 mm x 2 cm Bradford balloon and 3 mm x 4 cm Akil balloon. 6. Proximal anastomosis angioplasty of radiocephalic arteriovenous fistula with a 4 mm x 6 cm Bradford balloon x2. COMPLICATIONS: None. ANESTHESIA: IV sedation, monitored care with local anesthetic, 1 mg of Versed, 25 mcg of fentanyl. TOTAL TIME: 59 minutes REASON FOR PROCEDURE: This is a 53-year-old white female who is status post left radiocephalic AV fistula and non-maturation due to radial artery stenosis as well as proximal anastomosis, scheduled for a repeat fistulogram with angioplasty. The risks, benefits of the procedure were detailed with her. All questions were answered, and she agreed to proceed. PROCEDURE DESCRIPTION: The patient was brought to the angioplasty suite where she was placed in supine position, placed on pulse oximetry and cardiac monitoring. Given IV sedation and fentanyl. Left arm was prepped and draped in usual fashion. Ultrasound guidance was used to gain access in antegrade fashion to the left brachial artery using a single-wire micropuncture technique, ultrasound- guided. Exchanged out for a 4-Kenyan sheath over a Glidewire. Angiogram of the left upper extremity revealed the anastomosis of the radial artery, quite stenosed throughout, long segmental. Systemically heparinized the patient. Exchanged out for a 0.014 Journey wire. I was able to go down the radial artery, past the anastomosis and retrograde up the arteriovenous fistula outflow tract. After 5 minutes, we angioplastied the radial artery with a 2.5 x 120 Bradford balloon to 12 atmospheres, 1-minute inflation x2, upsized to a 3 x 12 cm. [facility] PATIENT NAME: SANDY BRAVO [facility] Dr[facility] MEDICAL REC #: [id number] [place] [address] ADMIT DATE: DISCHARGE DATE: OPERATIVE REPORT ATTENDING PHY: Héctor Bonilla MD Had 2 residual stenoses. Had to angioplasty those with shorter Akil balloons, a 3 x 2 and a 3 x 4. A little resistance in the mid-segment but otherwise got the distal stenosis. The proximal anastomosis was then addressed with a 4 x 6 Bradford balloon across the anastomosis, then up in the proximal fistula. Two 1-minute inflations to 14 atmospheres. It showed significant improvement of flow through the fistula. No signs of complicating factors. The wire was pulled. The sheath was left in after ACT had normalized to provide hemostasis for manual compression. The patient tolerated the procedure well and was transferred to the recovery room in stable condition. Héctor Bonilla MD JUAN [id number] SSI File#: [id number] Verified/Reviewed by 03/21/18 Tanner DARBY [facility] PATIENT NAME: SANDY BRAVO [facility] Dr[facility] MEDICAL REC #: [id number] [place] [address] ADMIT DATE: DISCHARGE DATE: OPERATIVE REPORT ATTENDING PHY: Héctor Bonilla MD PROGRESS Observed: 03/02/2018 Status: COMPLETED Source: [place] 8:[address] [facility] REPOSITORY HNO ID: [id number] Author: Maldonado Denny Service: (none) Author Type: Physician Type: Progress Notes Filed: 03/02/2018 8:15 AM Note Text: This note was created using [employer]. Subjective Sandy Bravo is a 53 year old female here with her spouse for follow up. She was admitted by her sustainable design consultant for anasarca February 13. She was started on dialysis by catheter. Angioplasty was also done on her left arm for non maturing AV fistula. She was feeling better. Her diabetes mellitus was not controlled, as before. Somehow, her Tresiba was discontinued. It seemed she confused Toujeo which was discontinued, to Tresiba. She was taken off fluoxetine. She denied depression or anxiety at this time. She complained of hearing loss on the right for at least one month. Review of Systems Constitutional: Negative. HENT: Positive for hearing loss. Negative for congestion, ear discharge, ear pain and sore throat. Respiratory: Negative. Cardiovascular: Negative. Gastrointestinal: Negative. Endocrine: Negative. Genitourinary: Negative. Neurological: Positive for numbness. 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 Morning dose held for dialysis days: Mon, Mon, Monday. amLODIPine (NORVASC) 10 mg tablet Take 1 tablet by mouth once daily. insulin needles, DISPOSABLE, (PEN NEEDLE) 31 gauge x 5/16 ndle Use one needle per dose. one per day. metoprolol tartrate, short acting, (LOPRESSOR) 50 mg tablet Take 1 tablet by mouth twice daily. atorvastatin (LIPITOR) 40 mg tablet Take 1 tablet by mouth daily at bedtime. insulin aspart (NOVOLOG) 100 unit/mL soln Inject eight (8) units three times a day with meals levothyroxine (SYNTHROID) 112 mcg tablet TAKE ONE TABLET BY MOUTH ONCE DAILY. TAKE ON EMPTY stomach. FOR thyroid. blood sugar diagnostic (BLOOD GLUCOSE TEST) test strip Test blood sugar(s) 3 times daily. Dx: Type 2 DM - Uncontrolled E11.65 Insulin: Yes Blood-Glucose Meter (BLOOD GLUCOSE MONITORING) monitoring kit 1 Each three times daily. E11.65. On insulin. Insulin Syringe-Needle U-100 (BD INSULIN SYRINGE ULTRA-FINE) 1 mL 29 gauge x 1/2 syrg Use twice daily as directed. aspirin, enteric coated (ECOTRIN LOW STRENGTH) 81 mg EC tablet Take 1 tablet by mouth once daily. insulin degludec (TRESIBA) 100 unit/mL (3 mL) injection Inject 40 Units subcutaneously daily at bedtime. calcium acetate (PHOSLO) 667 mg capsule Take 2 capsules by mouth three times daily with meals. NEPHRO-SONDRA 0.8 mg tab Take 1 tablet by mouth once daily. lisinopril (ZESTRIL, PRINIVIL) 20 mg tablet Take 1 tablet by mouth twice daily. No current facility-administered medications for this visit. Objective BP 94/50 (BP Site: Right Arm, BP Position: Sitting, BP Cuff Size: Regular Adult) Pulse (!) 56 Temp 36.2 ?C (97.2 ?F) (Left Tympanic) Resp 12 Wt 67.6 kg (149 lb) BMI 26.82 kg/m? Physical Exam Constitutional: No distress. HENT: Right Ear: Tympanic membrane is scarred. Left Ear: Tympanic membrane normal. Eyes: Conjunctivae are normal. Neck: No JVD present. Dialysis catheter in right infraclavicular. Cardiovascular: Regular rhythm and normal heart sounds. Bradycardia present. Exam reveals no gallop and no friction rub. No murmur heard. Pulmonary/Chest: Breath sounds normal. She has no rales. Abdominal: Soft. There is no tenderness. Musculoskeletal: She exhibits no edema. Bruit, left forearm. Assessment and Plan 1. Uncontrolled type 2 diabetes mellitus with proteinuric diabetic nephropathy (HCC) - ICD9: 250.42, 583.81, ICD10: E11.21, E11.65 (primary diagnosis) uncontrolled Poor adherence to plan of care. Resume long acting insulin. Follow up with clinical pharmacist as scheduled. - INSULIN DEGLUDEC (U-100) 100 UNIT/ML (3 ML) SUBCUTANEOUS PEN 2. Essential hypertension - ICD9: 401.9, ICD10: I10 - good control - CLONIDINE HCL 0.3 MG TABLET - LISINOPRIL 20 MG TABLET 3. Other hyperlipidemia - ICD9: 272.4, ICD10: E78.4 - good control - Continue current medication. 4. Hypothyroidism, unspecified type - ICD9: 244.9, ICD10: E03.9 - continue current dose of Synthroid 5. CKD (chronic kidney disease) stage V requiring chronic dialysis (HCC) - ICD9: 585.6, V45.11, ICD10: N18.6, Z99.2 Noted. - CALCIUM ACETATE 667 MG CAPSULE - NEPHRO-SONDRA 0.8 MG TABLET 6. Hearing loss of right ear, unspecified hearing loss type - ICD9: 389.9, ICD10: H91.91 - CONSULT TO ENT Maldonado Denny MD CNOV Observed: 03/01/2018 Status: COMPLETED Source: [place] 11:[address] [facility] REPOSITORY Office Visit (INTMWS) SANDY BRAVO ([id number]) 1965 F Date Time Provider Department 03/01/18 11:40 AM MALDONADO DENNY INTChrisWS During your visit today, we recorded the following information about you: Temperature Pulse Respiration Blood pressure 97.2 degrees 56/minute 12/minute 94/50 Weight 67.6 kg Maldonado Denny MD 03/02/2018 8:15 AM Signed This note was created using [employer]. Subjective Sandy Bravo is a 53 year old female here with her spouse for follow up. She was admitted by her sustainable design consultant for anasarca February 13. She was started on dialysis by catheter. Angioplasty was also done on her left arm for non maturing AV fistula. She was feeling better. Her diabetes mellitus was not controlled, as before. Somehow, her Tresiba was discontinued. It seemed she confused Toujeo which was discontinued, to Tresiba. She was taken off fluoxetine. She denied depression or anxiety at this time. She complained of hearing loss on the right for at least one month. Review of Systems Constitutional: Negative. HENT: Positive for hearing loss. Negative for congestion, ear discharge, ear pain and sore throat. Respiratory: Negative. Cardiovascular: Negative. Gastrointestinal: Negative. Endocrine: Negative. Genitourinary: Negative. Neurological: Positive for numbness. 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 Morning dose held for dialysis days: Mon, Mon, Monday. amLODIPine (NORVASC) 10 mg tablet Take 1 tablet by mouth once daily. insulin needles, DISPOSABLE, (PEN NEEDLE) 31 gauge x 5/16 ndle Use one needle per dose. one per day. metoprolol tartrate, short acting, (LOPRESSOR) 50 mg tablet Take 1 tablet by mouth twice daily. atorvastatin (LIPITOR) 40 mg tablet Take 1 tablet by mouth daily at bedtime. insulin aspart (NOVOLOG) 100 unit/mL soln Inject eight (8) units three times a day with meals levothyroxine (SYNTHROID) 112 mcg tablet TAKE ONE TABLET BY MOUTH ONCE DAILY. TAKE ON EMPTY stomach. FOR thyroid. blood sugar diagnostic (BLOOD GLUCOSE TEST) test strip Test blood sugar(s) 3 times daily. Dx: Type 2 DM - Uncontrolled E11.65 Insulin: Yes Blood-Glucose Meter (BLOOD GLUCOSE MONITORING) monitoring kit 1 Each three times daily. E11.65. On insulin. Insulin Syringe-Needle U-100 (BD INSULIN SYRINGE ULTRA-FINE) 1 mL 29 gauge x 1/2 syrg Use twice daily as directed. aspirin, enteric coated (ECOTRIN LOW STRENGTH) 81 mg EC tablet Take 1 tablet by mouth once daily. insulin degludec (TRESIBA) 100 unit/mL (3 mL) injection Inject 40 Units subcutaneously daily at bedtime. calcium acetate (PHOSLO) 667 mg capsule Take 2 capsules by mouth three times daily with meals. NEPHRO-SONDRA 0.8 mg tab Take 1 tablet by mouth once daily. lisinopril (ZESTRIL, PRINIVIL) 20 mg tablet Take 1 tablet by mouth twice daily. No current facility-administered medications for this visit. Objective BP 94/50 (BP Site: Right Arm, BP Position: Sitting, BP Cuff Size: Regular Adult) Pulse (!) 56 Temp 36.2 ?C (97.2 ?F) (Left Tympanic) Resp 12 Wt 67.6 kg (149 lb) BMI 26.82 kg/m? Physical Exam Constitutional: No distress. HENT: Right Ear: Tympanic membrane is scarred. Left Ear: Tympanic membrane normal. Eyes: Conjunctivae are normal. Neck: No JVD present. Dialysis catheter in right infraclavicular. Cardiovascular: Regular rhythm and normal heart sounds. Bradycardia present. Exam reveals no gallop and no friction rub. No murmur heard. Pulmonary/Chest: Breath sounds normal. She has no rales. Abdominal: Soft. There is no tenderness. Musculoskeletal: She exhibits no edema. Bruit, left forearm. Assessment and Plan 1. Uncontrolled type 2 diabetes mellitus with proteinuric diabetic nephropathy (HCC) - ICD9: 250.42, 583.81, ICD10: E11.21, E11.65 (primary diagnosis) uncontrolled Poor adherence to plan of care. Resume long acting insulin. Follow up with clinical pharmacist as scheduled. - INSULIN DEGLUDEC (U-100) 100 UNIT/ML (3 ML) SUBCUTANEOUS PEN 2. Essential hypertension - ICD9: 401.9, ICD10: I10 - good control - CLONIDINE HCL 0.3 MG TABLET - LISINOPRIL 20 MG TABLET 3. Other hyperlipidemia - ICD9: 272.4, ICD10: E78.4 - good control - Continue current medication. 4. Hypothyroidism, unspecified type - ICD9: 244.9, ICD10: E03.9 - continue current dose of Synthroid 5. CKD (chronic kidney disease) stage V requiring chronic dialysis (HCC) - ICD9: 585.6, V45.11, ICD10: N18.6, Z99.2 Noted. - CALCIUM ACETATE 667 MG CAPSULE - NEPHRO-SONDRA 0.8 MG TABLET 6. Hearing loss of right ear, unspecified hearing loss type - ICD9: 389.9, ICD10: H91.91 - CONSULT TO ENT Maldonado Denny MD Referring Provider: SELF [200] Allergies As of Date: 03/01/2018 Noted Allergy Reaction CODEINE 12/11/2006 8 - GI Upset LATEX 03/22/2012 4 - Hives Comments: 2006 had reaction after surgery PENICILLINS 12/11/2006 7 - Swelling Date Reviewed: 03/01/2018 Reviewed by: Edie Samayoa LPN - Fully Assessed Reason for Visit: Hospital Follow Up [177] Primary Visit Diagnosis:Uncontrolled type 2 diabetes mellitus with proteinuric diabetic nephropathy (HCC) [E11.21, E11.65] Other Visit Diagnoses:Essential hypertension [I10] Other hyperlipidemia [E78.4] Hypothyroidism, unspecified type [E03.9] CKD (chronic kidney disease) stage V requiring chronic dialysis (HCC) [N18.6, Z99.2] Hearing loss of right ear, unspecified hearing loss type [H91.91] Order(s):insulin degludec (TRESIBA) 100 unit/mL (3 mL) injectionInject 40 Units subcutaneously daily at bedtime.Disp: Rfl: 1 cloNIDine HCl (CATAPRES) 0.3 mg tabletTake 1 tablet by mouth twice daily. Morning dose held for dialysis days: Mon, Mon, Monday.Disp: Rfl: CONSULT TO ENT [[id number]] Order #: [id number]: 1 Prescriptions as of 03/01/2018 Sig: CLONIDINE HCL 0.3 MG TABLET Take 1 tablet by mouth twice * AMLODIPINE 10 MG TABLET Take 1 tablet by mouth once d* PEN NEEDLE, DIABETIC 31 GAUGE* Use one needle per dose. one * METOPROLOL TARTRATE 50 MG TAB* Take 1 tablet by mouth twice * ATORVASTATIN 40 MG TABLET Take 1 tablet by mouth daily * INSULIN ASPART U-100 100 UNI* Inject eight (8) units three * LEVOTHYROXINE 112 MCG TABLET TAKE ONE TABLET BY MOUTH ONCE* BLOOD SUGAR DIAGNOSTIC STRIPS Test blood sugar(s) 3 times d* BLOOD-GLUCOSE METER KIT 1 Each three times daily. E11* INSULIN SYRINGE-NEEDLE U-100 * Use twice daily as directed. * ASPIRIN 81 MG TABLET,DELAYED * Take 1 tablet by mouth once d* INSULIN DEGLUDEC (U-100) 100 * Inject 40 Units subcutaneousl* CALCIUM ACETATE 667 MG CAPSULE Take 2 capsules by mouth thre* NEPHRO-SONDRA 0.8 MG TABLET Take 1 tablet by mouth once d* LISINOPRIL 20 MG TABLET Take 1 tablet by mouth twice * Medication notes this encounter CLONIDINE HCL 0.3 MG TABLET >> Edie Samayoa LPN 03/01/2018 11:40 AM >> ARSALANEDIE AARON FIORELLA Lacey Mar 01, 2018 11:40 AM Not taking M,W,F, on dialysis days Problem List As Of Date 03/01/2018 Noted Resolved Calculus of ureter [N20.1] INVALID FOR*03/22/2012 Urinary tract infection, site not specified [N3*INVALID FOR*03/22/2012 Renal colic [N23] INVALID FOR*03/22/2012 Uncontrolled type 2 diabetes mellitus with prot*INVALID FOR* HTN (hypertension) [I10] INVALID FOR* Hyperlipidemia [E78.5] INVALID FOR* Depression [F32.9] INVALID FOR* Hypothyroid [E03.9] INVALID FOR* ASCVD (arteriosclerotic cardiovascular disease)*INVALID FOR* Proteinuria [R80.9] INVALID FOR* CKD (chronic kidney disease) stage 3, GFR 30-59*INVALID FOR*05/02/2017 CKD (chronic kidney disease) stage 4, GFR 15-29*INVALID FOR* More... CKD (chronic kidney disease) stage V requiring *INVALID FOR* Prescriptions ordered this encounter Disp Refills Start End INSULIN DEGLUDEC (U-100) 100 UNIT/ML* 1 03/01/2018 Class: Med Update Route: SUBCUTANEOUS Sig: Inject 40 Units subcutaneously daily at bedtime. CLONIDINE HCL 0.3 MG TABLET 03/01/2018 Class: Med Update Route: ORAL Sig: Take 1 tablet by mouth twice daily. Morning dose held for dialysis days: Mon, Mon, Monday. Medications Discontinued During This Encounter insulin degludec (TRESIBA) 100 unit/* 5 Pen 1 02/09/2018 03/01/2018 Cmt: This replaces the [place] Route: SUBCUTANEOUS Sig: Inject 40 Units subcutaneously daily at bedtime. Patient not taking: Reported on 03/01/2018 Disc: Reason for discontinue is not on file. terbinafine HCl (LAMISIL AT) 1 % cre* 1 Tu* 5 04/05/2017 03/01/2018 Route: TOPICAL Sig: Apply 1 application to affected area twice daily. Both feet and toes. Disc: Reason for discontinue is not on file. FLUoxetine HCl (PROZAC) 40 mg capsule 90 c* 1 10/18/2017 03/01/2018 Route: ORAL Sig: Take 1 capsule by mouth once daily. Patient not taking: Reported on 03/01/2018 Disc: Discontinued by another Health Care Provider cloNIDine HCl (CATAPRES) 0.3 mg tabl* 60 t* 2 02/21/2018 03/01/2018 Route: ORAL Sig: Take 1 tablet by mouth twice daily. Disc: Reason for discontinue is not on file. multivitamin (DAILY MULTIVITAMIN) OR* 0 06/12/2007 03/01/2018 Class: OTC Route: ORAL Sig: Take one(1) tablet daily. Disc: Duplicate Entry Disposition: Return in about 2 months (around 05/01/2018). Follow-up and Disposition History Recorded Encounter Status:Closed by MALDONADO DENNY MD on 03/02/18 PTAR Observed: 02/16/2018 Status: UNK Source: [facility] 1:31 PM CENTER [facility] REPOSITORY Physical Therapy Inpatient Evaluation Medical Diagnosis: CHRONIC KIDNEY DISEASE, ANASARCA WITH NEPHROTIC SYNDROME, S/P FISTULOGRAM L ARM AND RENOPLASTY 02/14/18 Therapy Diagnosis: Rank Code Description 1 R26 Abnormalities of gait and mobility Demographics: Age: 53Y Gender: Female Primary Language: Bermudian Preferred Language: Bermudian Referring Service/Team: Alejandra Mullins Past Medical History: PAST MEDICAL HISTORY: 1. Insulin-dependent diabetes with nephropathy, retinopathy, neuropathy. 2. Coronary artery disease in the past, no intervention. 3. Hypertension. 4. Depression. 5. Hyperlipidemia. 6. Hypothyroidism. 7. Anemia; does not require Procrit. History of Present Illness: Date of Onset: 02/13/18 Additional Information: REASON FOR ADMISSION: CKD stage 5, end stage disease, uremia, anasarca. HISTORY: Mrs. Sandy Bravo is a very pleasant 53-year-old lady, suffered from insulin-dependent diabetes with complications of retinopathy, neuropathy, nephropathy, and finding some anasarca. I have been following her over the last year at [facility], came to the office today with significant edema and anasarca, weakness and tiredness, cannot function. We have been preparing her for dialysis treatment. We had AV fistula created by Dr. Bonilla with [facility], has not matured yet, and after working on her to get on the transplant list to combine kidney/pancreas transplant at [facility] yet to be done. In the office she was weak, tired, cannot stand. She gained a lot of weight and cannot function at home and we felt she was uremic, to require dialysis treatment. OBTAINED FROM MEDICAL CHARTING Date of Admission: 02/13/2018 2:26:00 PM Rehabilitation Precautions/Restrictions: standard precautions, fall risk [facility] PATIENT NAME: SANDY BRAVO [address] [place] MEDICAL REC #: [id number] [place] [address] ADMIT DATE: 02/13/18 SERVICE DATE: 02/16/18 Physical Therapy Assessment Report ATTENDING PHY: Yomaira Mullins MD SUBJECTIVE Prior Level of Functioning: Indoor Mobility: Patient completed the activities by him/herself, with or without an assistive device, with no assistance from a helper. Stairs: Patient completed the activities by him/herself, with or without an assistive device, with no assistance from a helper. Pt reports she ambulates with no assistive device typically, but will use WW if needed. Pt independent with bathing and dressing. Pt's cooks and cleans. Pt's sister plans to come stay with her initially. Prior Device Use: Performance GG110. Prior Device None of Above Yes Patient/Caregiver Goals: Patient's functional goals: go home Pain: Patient currently without complaints of pain. Home Environment: Patient lives with (works, no 27/03) , who is able to assist patient at discharge. Patient lives in a single family home. Home is two levels. Patient is not required to manage stairs within the home. First floor full bathroom setup available. No stairs to enter the home. There is no ramp available to enter home. Equipment Owned: WW, walk in shower, grab bars in shower, elevated toilet seat Social History: Marital Status: M Children: 1 Reside: [place] Employment Status: disability Recreational Activities/Hobbies: [employer], [employer] OBJECTIVE Cognitive Screen Responsiveness: Alert. Orientation: Oriented to person, place, time, and situation. Following Commands: Patient is able to follow 3-step commands. Range of Motion Upper Extremity: Grossly within functional limits Lower Extremity: Grossly within functional limits Strength Upper Extremity: Grossly within functional limits Lower Extremity: Grossly within functional limits Tone/Spasticity: No relevant impairments. Sensation: Grossly intact. Balance: Independent and within functional limits. Therapeutic/Functional Activities: [facility] PATIENT NAME: SANDY BRAVO [address] [place] MEDICAL REC #: [id number] [place] [address] ADMIT DATE: 02/13/18 SERVICE DATE: 02/16/18 Physical Therapy Assessment Report ATTENDING PHY: Yomaira Mullins MD Bed Mobility: Not assessed. Transfers: Patient transferred sit to/from stand with modified independence. Patient used the following equipment: Arms of chair. Pt denies dizziness upon initial standing Locomotion/Gait/Ambulation: Patient was independent with gait/ambulation for 200' . No assistive devices were required. Pt amb with reciprocal gait pattern with good step length and dick. Pt demonstrates no LOB or instability with good safety. Pt reports ambulation matches baseline level. Pt ambulates at 1 m/s. Gait Deviations: No gait deviations. Stairs: Not assessed. AM-PAC Basic Mobility: Turning Over in Bed: No difficulty Sitting/Standing Chair with Arms: No difficulty Lying on Back to Sitting on Side of Bed: No difficulty Moving To/From Bed to Chair: No help needed Walking in Hospital Room: No help needed Climbing 3-5 Steps with Railing: No help needed Raw Score = 24 , AM-PAC t-Scale Score = 61.14 and G-Code Modifier = CH Vital Signs: Vitals: Oxygen Saturation: 97 % post amb on room air Interventions: Evaluation LOW Complexity No treatment provided today. Pain Reassessment: No pain at onset or during treatment, which does not warrant reassessment. Education: The patient's preferred learning method is: Explanation, Demonstration Barriers to Learning: No barriers Learning Needs: Precautions. Plan of care. Rehabilitation techniques and procedures. Education Provided: Precautions. Plan of care. Rehab techniques and procedures. purpose of PT evaluation Audience: Patient., Significant other. Mode: Explanation. Demonstration. Response: Applied knowledge. Verbalized understanding. Demonstrated skill. ASSESSMENT Problem List: None Strengths: Activities of Daily Living, Transfers, Independent premorbid function, Social/family support, Activity tolerance, Home safety, Upper extremity function, Strength, Cognition, Vision, Balance Rehabilitation Potential: Not applicable Motivation/Commitment to Therapy: Not applicable. [facility] PATIENT NAME: SANDY BRAVO [address] [place] MEDICAL REC #: [id number] [place] [address] ADMIT DATE: 02/13/18 SERVICE DATE: 02/16/18 Physical Therapy Assessment Report ATTENDING PHY: Yomaira Mullins MD Response to Evaluation: Pt demonstrates baseline abilities that are safe and stable with no need for skilled PT intervention. Pt educated of plan to D/C PT with good pt verbal agreement and understanding. Pt educated to notify physician/nursing if changes occur with functional mobility. AM-PAC 24 shows pt safe for homegoing Activity/Participation Problem List and Goals: Functional Impairment: Mobility: Walking and Moving Around. Modifier: [id number]-FG (0% impaired, limited or restricted) Goal: Pt to ambulate independent 100' no assistive device to ensure safety upon discharge Goal Modifier: R1255-LZ (0% impaired, limited or restricted) Discharge Status for Mobility: Walking and Moving Around: Resolved Functional Impairment Discharge Modifier: [id number]-TM (0% impaired, limited or restricted) Pt amb independent 200' with good safety and sequencing Treatment Goals: Not applicable. PLAN Treatment Frequency, Duration and Interventions: Physical Therapy services are discontinued at this time secondary to: No need for skilled therapy intervention at this time. Patient is independent (able to return demonstrate) home exercise program. Recommended Physical Therapy Follow Up: Upon acute care discharge, the following is currently recommended: No further care Recommended Equipment: None. No needs . Recommended Consults: None currently. Development of Plan of Care: Patient participated in plan of care development today. If there are any questions regarding this service, please contact the Acute Therapy Department at extension [phone] Location of Patient at End of Therapy Session: In chair, call light within reach Services: Total Billed: 0 minutes (Timed: 0, Untimed: 0) 0.00 Untimed: [83884] PT-EVALUATION LOW COMPLEXITY 0.00 Untimed: [] PT Evaluation ORDER [facility] PATIENT NAME: SANDY BRAVO [address] [place] MEDICAL REC #: [id number] [place] [address] ADMIT DATE: 02/13/18 SERVICE DATE: 02/16/18 Physical Therapy Assessment Report ATTENDING PHY: Yomaira Mullins MD 0.00 Untimed: [G8978] PT-Mobility: Walking and Moving Around-CH 0.00 Untimed: [G8979] AJ-Mpxj-Zappxzlu: Walking and Moving Around-CH 0.00 Untimed: [G8980] PT-DC:Mobility: Walking and Moving Around-CH Signed by: Juana Tony, 02/16/2018 15:04:39 [facility] PATIENT NAME: SANDY BRAVO [address] MEDICAL REC #: [id number] [place] [address] ADMIT DATE: 02/13/18 SERVICE DATE: 02/16/18 Physical Therapy Assessment Report ATTENDING PHY: Yomaira Mullins MD Observed: 02/16/2018 Status: UNK Source: [facility] 11:56 AM CENTER [facility] REPOSITORY Occupational Therapy Inpatient Evaluation Medical Diagnosis: 1. Chronic kidney disease stage 5, uremic symptoms. 2. Anasarca with nephrotic syndrome. OCCUPATIONAL PROFILE AND HISTORY Therapy Diagnosis: Rank Code Description 1 Z74.0 Reduced mobility 2 Z74.1 Need for assistance with personal care Demographics: Age: 53Y Gender: Female Primary Language: Bermudian Preferred Language: Bermudian Referring Service/Team: Medicine Past Medical History: PAST MEDICAL HISTORY: 1. Insulin-dependent diabetes with nephropathy, retinopathy, neuropathy. 2. Coronary artery disease in the past, no intervention. 3. Hypertension. 4. Depression. 5. Hyperlipidemia. 6. Hypothyroidism. 7. Anemia; does not require Procrit. History of Present Illness: 02/13/18 Additional Information: REASON FOR ADMISSION: CKD stage 5, end stage disease, uremia, anasarca. HISTORY: Mrs. Sandy Bravo is a very pleasant 53-year-old lady, suffered from insulin-dependent diabetes with complications of retinopathy, neuropathy, nephropathy, and finding some anasarca. I have been following her over the last year at [facility], came to the office today with significant edema and anasarca, weakness and tiredness, cannot function. We have been preparing her for dialysis treatment. We had AV fistula created by Dr. Bonilla with [facility], has not matured yet, and after working on her to get on the transplant list to combine kidney/pancreas transplant at [facility] yet to be done. In the office she was weak, tired, cannot stand. She gained a lot of weight and cannot function at home and we [facility] PATIENT NAME: SANDY BRAVO K [address] [place] MEDICAL REC #: [id number] [place] [address] ADMIT DATE: 02/13/18 SERVICE DATE: 02/16/18 Occupational Therapy Assessment ATTENDING HANS: Yomaira Mullins MD felt she was uremic, to require dialysis treatment. Date of Admission: 02/13/2018 2:26:00 PM Rehabilitation Precautions/Restrictions: fall percaution Imaging/Testing Results from Chart: chest x-ray Impression: Borderline to mild cardiomegaly. Mild central pulmonary venous congestion. Left retrocardiac airspace opacity and small effusion. Prior Level of Functioning: Self Care: Patient completed the activities by him/herself, with or without an assistive device, with no assistance from a helper. Functional Cognition: Patient completed the activities by him/herself, with or without an assistive device, with no assistance from a helper. Has a walker but does not use. Independent in ADLs, does cooking and cleaning Patient/Caregiver Goals: Patient's functional goals: go home Pain: Patient currently without complaints of pain. Home Environment: Patient lives with 5am-1pm , who is able to assist patient at discharge. Patient lives in a single family home. Home is two levels. Patient is not required to manage stairs within the home. First floor full bathroom setup available. No stairs to enter the home. There is no ramp available to enter home. Equipment Owned: walk in shower with grabbars, high toilet with sink on side of comode Marital Status: M Social History: Children: 1 Reside: dtr in [facility] Employment Status: disability Recreational Activities/Hobbies: hiking OBJECTIVE/OCCUPATIONAL PERFORMANCE Activities of Daily Living Current Status Previous Status ADLs Feeding Independent - Grooming Independent - Bathing-UE Independent - Bathing-LE Independent - Dressing-UE Independent - Dressing-LE Independent - Toileting Independent - [facility] PATIENT NAME: SANDY BRAVO [address] [place] MEDICAL REC #: [id number] [place] [address] ADMIT DATE: 02/13/18 SERVICE DATE: 02/16/18 Occupational Therapy Assessment ATTENDING PHY: Yomaira Mullins MD [facility] Daily Activities: Putting On/Taking Off Lower Body Clothing: No help needed Bathing:: No help needed Toileting: No help needed Putting On/Taking Off Upper Body Clothing: No help needed Grooming: No help needed Eating a Meal: No help needed Raw Score = 24 , AM-[facility] t-Scale Score = 57.54 and G-Code Modifier = CH Functional Mobility: Bed Mobility: Not assessed. Transfers: Patient transferred sit to/from stand with independence. Patient transferred to/from the toilet with modified independence. Patient used the following equipment: Grab bars. use grabbar as unilateral armsupport which patient will have at home with her sink Locomotion/Gait/Ambulation: Patient was modified independent with gait/ambulation for inside rom and hallway . No assistive devices were required. x1 minor LOB patient self recovered. Walks slightly guarded but WFL Range of Motion Upper Extremity: Grossly within functional limits Strength Upper Extremity: Not within functional limits R UE 4/5, L UE deferred due to fistual Balance: Static balance in a seated position is good. Dynamic balance in a seated position is good. Static balance in a seated position is good. Dynamic balance in a seated position is good. Static balance in a standing position is good. Dynamic balance in a standing position is good. good- Tone/Spasticity: No relevant impairments. Sensation: Grossly intact. Fine Motor Coordination: Bilateral Hands: Fine motor coordination is not impaired. Gross Motor Coordination: Upper extremity gross motor coordination is intact. Edema: Edema is present. Location: Bilateral lower extremities edema- Minimal. Location: Lower Extremity Function: grossly WFL Vision: glasses [facility] PATIENT NAME: SANDY BRAVO [address] [place] MEDICAL REC #: [id number] [place] [address] ADMIT DATE: 02/13/18 SERVICE DATE: 02/16/18 Occupational Therapy Assessment ATTENDING PHY: Yomaira Mullins MD Cognition: Within functional limits. Perceptual Skills: Within functional limits. Psychosocial: Within normal limits Interventions: Evaluation LOW Complexity No treatment provided today. Pain Reassessment: No pain at onset or during treatment, which does not warrant reassessment. Education: The patient's preferred learning method is: Explanation, Demonstration, Printed materials Barriers to Learning: No barriers Learning Needs: Plan of care. Safety. Functional activities/mobility. Equipment. Education Provided: Functional transfers. Activities of daily living. Plan of care. Safety. Audience: Patient., Patient and significant other. Mode: Explanation. Demonstration. Response: Verbalized understanding. Demonstrated skill. ASSESSMENT Clinical Performance Deficits: Impaired balance Equipment Recommended: na Rehabilitation Potential: Not applicable Motivation/Commitment to Therapy: Not applicable. Response to Evaluation: Well patient pleasent and motivated, other then minor LOB that patient had when walking and self corrected no deficits otherwise noted. Patient reports feeling much better and feeling closer to her normal self. At this time patient does not need skilled OT servcies and reported no concerns for homegoing Activity/Participation Problem List and Goals: Functional Impairment: Self Care Modifier: [id number] (0% impaired, limited or restricted) Goal: Goal Modifier: Y8713-JR (0% impaired, limited or restricted) Discharge Status for Self Care: Resolved Functional Impairment Discharge Modifier: S3093-ZS (0% impaired, limited or restricted) Treatment Goals: Not applicable. PLAN Treatment Frequency, Duration and Interventions: Occupational Therapy services [facility] PAT[facility] MEDICAL REC #: [id number] [place] [address] ADMIT DATE: 02/13/18 SERVICE DATE: 02/16/18 Occupational Therapy Assessment ATTENDING HANS: Yomaira Mullins MD are discontinued at this time secondary to: No need for skilled therapy intervention at this time. Recommended Occupational Therapy Follow Up: Upon acute care discharge, the following is currently recommended: No further care. Recommended Consults: Social Work. Development of Plan of Care: Patient and family participated in plan of care development today. If there are any questions regarding this service, please contact the Acute Therapy Department at extension [phone] CARE WILL BE TRANSFERRED TO THE (CHOICE OF ACUTE OR REHAB) OCCUPATIONAL THERAPIST Communication to Nursing: Toilet Transfers: MOD I Location of Patient at End of Therapy Session: In chair, call light within reach Services: Total Billed: 0 minutes (Timed: 0, Untimed: 0) 0.00 Untimed: [98359] OT-EVALUATION LOW COMPLEXITY 0.00 Untimed: [] OT Evaluation ORDER 0.00 Untimed: [G8987] OT-Self Care-CH 0.00 Untimed: [G8988] MD-Amek-Mgyb Care-CH 0.00 Untimed: [G8989] OT-DC-Self Care-CH Signed by: ELLA Willis 02/16/2018 15:03:49 [facility] PATIENT NAME: SANDY BRAVO [address] [place] MEDICAL REC #: [id number] [place] [address] ADMIT DATE: 02/13/18 SERVICE DATE: 02/16/18 Occupational Therapy Assessment ATTENDING HANS: Yomaira Mullins MD GLUCOSE METER Collected: 02/16/2018 Status: F Source: [facility] 11:41 AM [facility] [facility] TYPE CODE TESTS RESULT OUT OF REFERENCE UNITS RANGE LAB L500.84075 85-125 MG/DL High GLUCOSE METER 210 PTPN Observed: 02/16/2018 Status: UNK Source: [facility] 10:40 AM [facility] REPOSITORY Physical Therapy Inpatient Missed Visit Note Attempted to visit patient for therapy, but was unable for the following reasons: Patient having or awaiting dialysis. Return Plan: Will return as soon as possible for another attempt. If there are any questions regarding this service, please contact the Acute Therapy Department at extension [phone] Signed by: Juana Tony, 02/16/2018 10:40:36 [facility] PATIENT NAME: SANDY BRAVO [facility] [address] [facility] MEDICAL REC #: [id number] [place] [address] ADMIT DATE: 02/13/18 SERVICE DATE: 02/16/18 Physical Therapy Progress Note ATTENDING PHY: Yomaira Mullins MD GLUCOSE METER Collected: 02/16/2018 Status: F Source: [facility] 8:02 AM [facility] REPOSITORY TYPE CODE TESTS RESULT OUT OF REFERENCE UNITS RANGE LAB L500.22444 85-125 MG/DL High GLUCOSE METER 330 GLUCOSE METER Collected: 02/15/2018 Status: F Source: [facility] 4:12 PM [facility] RE[facility] TYPE CODE TESTS RESULT OUT OF REFERENCE UNITS RANGE LAB L500.40696 85-125 MG/DL High GLUCOSE METER 198 GLUCOSE METER Collected: 02/15/2018 Status: F Source: [facility] 11:30 AM [facility] REPOS[facility] TYPE CODE TESTS RESULT OUT OF REFERENCE UNITS RANGE LAB L500.48861 85-125 MG/DL High GLUCOSE METER 137 GLUCOSE METER Collected: 02/15/2018 Status: F Source: [facility] 8:02 AM [facility] REPOS[facility] TYPE CODE TESTS RESULT OUT OF REFERENCE UNITS RANGE LAB L500.76621 85-125 MG/DL High GLUCOSE METER 281 CBC W/DIFF Collected: 02/15/2018 Status: F Source: [facility] 5:09 AM [facility] Order Comment: [place]: M TYPE CODE TESTS RESULT OUT OF RANGE REFERENCE UNITS LAB L200.66038 4.5-11.0 K/CU MM Low WBC 4.3 LAB L200.48665 3.90-5.30 M/CU MM Low RBC 3.53 LAB L200.51354 11.5-15.5 G/DL Low HGB 10.2 LAB L200.44750 35.0-47.0 % Low HCT 30.1 LAB L200.67348 80.0-99.0 fl MCV Normal 85.3 LAB L200.01595 32.0-36.0 GM/DL MCHC Normal 33.9 LAB L200.08593 11-14.5 RDW Normal 13.1 LAB L200.19432 9.4-12.4 MPV Normal 9.4 LAB L200.60121 150-450 K/CU MM Low PLT 106 LAB L200.77440 45-75 % NEUTROPHILS Normal % 59.8 LAB L200.82760 Less than 2 % IMMATURE Normal GRAN % 0.5 LAB L200.83622 20-40 % LYMPH % Normal 27.9 LAB L200.51544 2-10 % MONOCYTE % Normal 8.8 LAB L200.04128 0-5 % EOSINOPHIL Normal % 2.1 LAB L200.59645 0-2 % BASOPHIL % Normal 0.9 LAB L200.71681 2.0-8.3 K/CU MM NEUTROPHIL Normal ABS 2.60 LAB L200.66649 Less than 2 K/CU MM IMMATR GRAN Normal ABS 0.00 LAB L200.54764 0.9-4.4 K/CU MM LYMPH ABS Normal 1.20 LAB L200.42301 0.1-1.1 K/CU MM MONO ABS Normal 0.40 LAB L200.19585 0-0.5 K/CU MM EOS ABS Normal 0.10 LAB L200.61201 0-0.2 K/CU MM BASO ABS Normal 0.00 LAB L200.33307 Less than 1 % NRBC Normal 0.0 Performed By: #### L200.74806 #### [facility] LABORATORY [facility] [place] [address] BMP Collected: 02/15/2018 Status: F Source: [facility] 5:09 AM [facility] REPOSITORY Order Comment: [place]: TYPE CODE TESTS RESULT OUT OF RANGE REFERENCE UNITS LAB L500.25827 136-145 MMOL/L Normal NA 140 LAB L500.67725 3.5-5.1 MMOL/L Normal K 4.3 LAB L500.58650 98-107 MMOL/L Normal CL 106 LAB L500.92689 21-32 MMOL/L Normal CO2 23 LAB L500.51124 5-16 MMOL/L Normal AGAP 11 LAB L500.44120 70-100 MG/DL High GLU 232 Result Comment: 70-100- Normal Fasting; 100-125 Impaired Fasting; greater than 126 on more than one result- Diabetes. ADA guidelines. Results may be falsely elevated after the administration of Sulfapyridine. Results may be falsely depressed after the administration of Sulfasalazine. LAB L500.96612 7-26 MG/DL High BUN 31 LAB L500.62311 0.510-0.950 MG/DL High CREAT 3.870 Result Comment: Patients receiving either N-Acetylcysteine (NAC) or Metamizole prior to venipuncture, may have falsely depressed results. LAB L500.50409 15-24 Low BUN/CREA 8 LAB L500.83375 8.5-10.1 MG/DL Low CALCIUM TOTAL 7.9 Performed By: #### L500.86661, L500.76814 #### [facility]ATORY [facility] [place] [address] GFR EST Collected: 02/15/2018 Status: F Source: [facility] 5:09 AM [facility] REPOSITORY Order Comment: [place]: M TYPE CODE TESTS RESULT OUT OF RANGE REFERENCE UNITS LAB L500.60600 ML/MIN Normal IF non-AFR 12 AMER LAB L500.33466 ML/MIN Normal IF 15 AMER Performed By: #### L500.88226, L500.23477 #### [facility] LABORATORY [facility] [place] [address] GLUCOSE METER Collected: 02/14/2018 Status: F Source: [facility] 7:13 PM [facility] RE[facility] TYPE CODE TESTS RESULT OUT OF REFERENCE UNITS RANGE LAB L500.19870 85-125 MG/DL High GLUCOSE METER 144 GLUCOSE METER Collected: 02/14/2018 Status: F Source: [facility] 2:42 PM [facility] REPOSITORY TYPE CODE TESTS RESULT OUT OF RANGE REFERENCE UNITS LAB L500.26288 85-125 MG/DL Normal GLUCOSE METER 124 IRON PANEL Collected: 02/14/2018 Status: F Source: [facility] 2:08 PM [facility] REPOSITORY Order Comment: [place]: M TYPE CODE TESTS RESULT OUT OF RANGE REFERENCE UNITS LAB L500.28142 50-170 UG/DL Normal IRON 99 Result Comment: Patients treated with metal-binding drugs (e.g.deferoxamine) may have depressed iron values, as chelated iron may not properly react in the Siemens iron assay. LAB L500.66336 221-481 UG/DL Normal TIBC 294 LAB L500.62578 22-44 % Normal IRON SAT 34 Performed By: #### L500.97456, L500.72348 #### [facility] LABORATORY [address] [place] [address] FERR Collected: 02/14/2018 Status: F Source: [facility] 2:08 PM [facility] REPOSITORY Order Comment: [place]: M TYPE CODE TESTS RESULT OUT OF RANGE REFERENCE UNITS LAB L500.67688 8.0-307.0 NG/ML Normal FERR 164.5 Performed By: #### L500.38315, L500.59717 #### [facility] [address] [place] [address] GLUCOSE METER Collected: 02/14/2018 Status: F Source: [facility] 11:12 AM [facility] TYPE CODE TESTS RESULT OUT OF RANGE REFERENCE UNITS LAB L500.68567 85-125 MG/DL Normal GLUCOSE METER 115 VLAR Observed: 02/14/2018 Status: UNK Source: [facility] 7:55 AM [facility] VASCULAR MEDSTREAMING REPORT Patient: SANDY BRAVO Account [id number] Ordering Phy: MR: [id number] Reason for Visit: ESRD,START DIALYSIS AND ANASARCA Date of Service 02/14/18 Reading Physician: Cole Lam MD Left: The radiocephalic fistula was evaluated with color and Doppler. The fistula is patent with a slight increase in velocity in the proximal portion of 533 cm/sec. The size of the fistula is 3.5 , 3.0 and and at the outflow 4 mm. The flow volume is 418 cc/min. The radial is patent as well as the axillary, and subclavian arteries. Conclusions: Patent left radiocephalic fistula. Slight increase in velocity in the proximal segment of the fistula of 533 cm/sec. The radial artery is patent. Flow volume is 418 cc/min Patent radial, brachial, axillary, and subclavian arteries. Fistula measures 3 to 3.6 mm and outflow is 4 mm. CC: Yomaira Mullins MD Abbreviated Final Report. Full Report is available via link to [employer] in PCI under [facility] Lab Image Viewer. [facility] PATIENT NAME: SANDY BRAVO [address] [facility] [address] [facility] MEDICAL REC #: [id number] [place] [address] ADMIT DATE: 02/13/18 DISCHARGE DATE: NON-INVASIVE ARTERIAL REPORT ATTENDING PHY: Yomaira Mullins MD Electronically Signed by: Cole Lam MD Esign Date: 02/15/18 GLUCOSE METER Collected: 02/14/2018 Status: F Source: [facility] 7:40 AM [facility] REPOSITORY TYPE CODE TESTS RESULT OUT OF REFERENCE UNITS RANGE LAB L500.44244 85-125 MG/DL High GLUCOSE METER 255 GLUCOSE METER Collected: 02/13/2018 Status: F Source: [facility] 9:11 PM [facility] REPOSITORY TYPE CODE TESTS RESULT OUT OF REFERENCE UNITS RANGE LAB L500.23026 85-125 MG/DL High GLUCOSE METER 299 GLUCOSE METER Collected: 02/13/2018 Status: F Source: [facility] 5:12 PM [facility] REPOSITORY TYPE CODE TESTS RESULT OUT OF REFERENCE UNITS RANGE LAB L500.74787 85-125 MG/DL High GLUCOSE METER 199 CBC W/DIFF Collected: 02/13/2018 Status: F Source: [facility] 3:41 PM [facility] REPOSITORY Order Comment: [place]: M TYPE CODE TESTS RESULT OUT OF RANGE REFERENCE UNITS LAB L200.68982 4.5-11.0 K/CU MM WBC Normal 7.1 LAB L200.17833 3.90-5.30 M/CU MM RBC Normal 3.97 LAB L200.81235 11.5-15.5 G/DL Low HGB 11.1 LAB L200.31201 35.0-47.0 % Low HCT 34.6 LAB L200.11611 80.0-99.0 fl MCV Normal 87.2 LAB L200.10920 32.0-36.0 GM/DL MCHC Normal 32.1 LAB L200.38379 11-14.5 RDW Normal 13.4 LAB L200.75953 9.4-12.4 MPV Normal 9.4 LAB L200.45494 150-450 K/CU MM PLT Normal 183 LAB L200.94726 45-75 % High NEUTROPHILS % 77.7 LAB L200.43091 Less than 2 % IMMATURE Normal GRAN % 0.1 LAB L200.51740 20-40 % Low LYMPH % 12.9 LAB L200.30320 2-10 % MONOCYTE % Normal 7.2 LAB L200.42424 0-5 % EOSINOPHIL Normal % 1.4 LAB L200.04733 0-2 % BASOPHIL % Normal 0.7 LAB L200.89143 2.0-8.3 K/CU MM NEUTROPHIL Normal ABS 5.50 LAB L200.39938 Less than 2 K/CU MM IMMATR GRAN Normal ABS 0.00 LAB L200.96856 0.9-4.4 K/CU MM LYMPH ABS Normal 0.90 LAB L200.00715 0.1-1.1 K/CU MM MONO ABS Normal 0.50 LAB L200.42609 0-0.5 K/CU MM EOS ABS Normal 0.10 LAB L200.74307 0-0.2 K/CU MM BASO ABS Normal 0.10 LAB L200.99031 Less than 1 % NRBC Normal 0.6 Performed By: #### L200.38459, L550.59728 #### [facility] [address] [place] [address] HGB A1C GLYCOHB Collected: 02/13/2018 Status: F Source: [facility] 3:41 PM [facility] REPOSITORY Order Comment: [place]: M TYPE CODE TESTS RESULT OUT OF REFERENCE UNITS RANGE LAB L550.04001 4.3-6.0 % High HGB A1C 7.5 GLYCOHB Performed By: #### L200.04644, L550.08991 #### [facility] [address] [place] [address] PTH INTACT Collected: 02/13/2018 Status: F Source: [facility] 3:41 PM [facility] REPOSITORY Order Comment: [place]: M TYPE CODE TESTS RESULT OUT OF REFERENCE UNITS RANGE LAB L550.61428 18.5-88.0 PG/ML High PTH INTACT 379.2 Performed By: #### L550.34179 #### [facility] [address] [place] [address] BMP Collected: 02/13/2018 Status: F Source: [facility] 3:41 PM [facility] REPOS[facility]ORY Order Comment: [place]: M TYPE CODE TESTS RESULT OUT OF RANGE REFERENCE UNITS LAB L500.22068 136-145 MMOL/L Normal NA 142 LAB L500.47158 3.5-5.1 MMOL/L Normal K 5.0 LAB L500.62377 98-107 MMOL/L High CL 110 LAB L500.87565 21-32 MMOL/L Normal CO2 21 LAB L500.82318 5-16 MMOL/L Normal AGAP 11 LAB L500.78921 70-100 MG/DL High GLU 220 Result Comment: 70-100- Normal Fasting; 100-125 Impaired Fasting; greater than 126 on more than one result- Diabetes. ADA guidelines. Results may be falsely elevated after the administration of Sulfapyridine. Results may be falsely depressed after the administration of Sulfasalazine. LAB L500.93996 7-26 MG/DL High BUN 49 LAB L500.99424 0.510-0.950 MG/DL High CREAT 4.600 Result Comment: Patients receiving either N-Acetylcysteine (NAC) or Metamizole prior to venipuncture, may have falsely depressed results. LAB L500.18110 15-24 Low BUN/CREA 11 LAB L500.64476 8.5-10.1 MG/DL Low CALCIUM TOTAL 8.3 Performed By: #### L500.13384, L500.85287, L500.43593, L500.59803, L500.57918, L540.65454, L540.21271, L540.05125, L540.36988 #### [facility] [address] [place] [id number] GFR EST Collected: 02/13/2018 Status: F Source: [facility] 3:41 PM [facility] REPOSITORY Order Comment: [place]: M TYPE CODE TESTS RESULT OUT OF RANGE REFERENCE UNITS LAB L500.44612 ML/MIN Normal IF non-AFR 10 AMER LAB L500.64122 ML/MIN Normal IF 12 AMER Performed By: #### L500.90540, L500.03154, L500.37378, L500.41471, L500.25385, L540.32208, L540.60285, L540.91436, L540.26906 #### [facility] [address] [place] [address] LIVER Collected: 02/13/2018 Status: F Source: [facility] 3:41 PM [facility] REPOSITORY Order Comment: [place]: M TYPE CODE TESTS RESULT OUT OF RANGE REFERENCE UNITS LAB L500.11434 6.0-8.5 GM/DL Low TP 5.8 LAB L500.19331 3.2-5.0 GM/DL Low ALBUMIN 2.9 LAB L500.94082 2.2-4.2 GM/DL Normal GLOBULIN 2.9 LAB L500.98042 0.8-2.0 Normal A/G RATIO 1.0 LAB L500.21979 0.2-1.0 MG/DL Normal BILI TOTAL 0.6 LAB L500.28232 0.00-0.20 MG/DL High BILI DIRECT 0.35 LAB L500.80860 8-34 U/L High SGOT (AST) 267 Result Comment: RESULTS MAY BE FALSELY DEPRESSED AFTER THE ADMINISTRATION OF SULFASALAZINE AND/OR SULFAPYRIDINE. LAB L500.29888 13-61 IU/L Normal SGPT (ALT) 56 Result Comment: RESULTS MAY BE FALSELY DEPRESSED AFTER THE ADMINISTRATION OF SULFASALAZINE AND/OR SULFAPYRIDINE. LAB L500.00551 45-117 U/L High ALK PHOS 580 Performed By: #### L500.11056, L500.59462, L500.98258, L500.51962, L500.21949, L540.21118, L540.54886, L540.55278, L540.75099 #### [facility] [address] [place] [address] PHOS Collected: 02/13/2018 Status: F Source: [facility] 3:41 PM [facility] REPOSITORY Order Comment: [place]: M TYPE CODE TESTS RESULT OUT OF RANGE REFERENCE UNITS LAB L500.26460 2.5-4.9 MG/DL Normal PHOS 4.4 Performed By: #### L500.83527, L500.54133, L500.68256, L500.02601, L500.27708, L540.34709, L540.13179, L540.18121, L540.21620 #### [facility] [address] [place] [id number] LIPID Collected: 02/13/2018 Status: F Source: [facility] 3:41 PM [facility] REPOSITORY Order Comment: [place]: M TYPE CODE TESTS RESULT OUT OF RANGE REFERENCE UNITS LAB L500.78852 30-149 MG/DL High TRIG 173 Result Comment: Patients receiving either N-Acetylcysteine (NAC) or Metamizole prior to venipuncture, may have falsely depressed results. LAB L500.03563 0-199 MG/DL Normal CHOL 159 LAB L500.16253 GREATER [place] 40 MG/DL Normal HDL DIRECT 50 Result Comment: Patients receiving Metamizole prior to venipuncture, may have falsely depressed results. LAB L500.45586 0-129 MG/DL Normal LDL 75 Result Comment: ___CHOLESTEROL/HDL RATIO RISK___ CHD RISK = Total CHOL LDL HDL (CHOL/HDL) Recommended <200 <130 >35 <3.4 Borderline 200-239 130-159 3.4-4.99 High >240 >160 >5.0 Performed By: #### L500.51371, L500.04245, L500.62766, L500.49870, L500.33457, L540.59140, L540.53465, L540.91411, L540.52118 #### [facility] [place] [address] HEP A IGM AB Collected: 02/13/2018 Status: F Source: [facility] 3:41 PM [facility] RE[facility]ORY Order Comment: [place]: TYPE CODE TESTS RESULT OUT OF REFERENCE UNITS RANGE LAB L540.72398 NONREACTIVE NONREACTIVE Normal HEP A IGM AB Result Comment: RESULTS WERE OBTAINED WITH THE ADVIA UruutAUR XP HEPATITIS A IgM. VALUES OBTAINED WITH DIFFERENT MANUFACTURERS' ASSAY METHODS MAY NOT BE USED INTERCHANGEABLY. These results may be falsely depressed in the presence of Biotin concentrations above 500 ng/ml. Performed By: #### L500.95381, L500.59504, L500.74295, L500.14059, L500.68226, L540.16380, L540.78825, L540.03461, L540.78713 #### [facility] [address] [place] [address] HBSAG Collected: 02/13/2018 Status: F Source: [facility] 3:41 PM [facility] REPOSITORY Order Comment: [place]: M TYPE CODE TESTS RESULT OUT OF REFERENCE UNITS RANGE LAB L540.68047 NONREACTIVE NONREACTIVE Normal HBSAG Result Comment: RESULTS WERE OBTAINED WITH THE CENTAUR XP. VALUES OBTAINED WITH DIFFERENT MANUFACTURERS' ASSAY METHODS MAY NOT BE USED INTERCHANGEABLY. Performed By: #### L500.97007, L500.04477, L500.97871, L500.16222, L500.76438, L540.18628, L540.25260, L540.09819, L540.93312 #### [facility] [place] [address] HEP B CORE IGM Collected: 02/13/2018 Status: F Source: [facility] 3:41 PM [facility] REPOS[facility]ORY Order Comment: [place]: M TYPE CODE TESTS RESULT OUT OF REFERENCE UNITS RANGE LAB L540.61954 NONREACTIVE NONREACTIVE Normal HEP B CORE IGM Result Comment: RESULTS WERE OBTAINED WITH THE ADVIA CENTAUR XP ANTI-HBC IGM EIA. VALUES OBTAINED WITH DIFFERENT MANUFACTURERS' ASSAY METHODS MAY NOT BE USED INTERCHANGEABLY. These results may be falsely depressed in the presence of Biotin concentrations above 250 ng/ml. Performed By: #### L500.56614, L500.25786, L500.05118, L500.28494, L500.00767, L540.24682, L540.14292, L540.81104, L540.75183 #### [facility] [address] [place] [address] HEPATITIS C AB Collected: 02/13/2018 Status: F Source: [facility] 3:41 PM [facility] REPOSIT[facility] Order Comment: [place]: M TYPE CODE TESTS RESULT OUT OF REFERENCE UNITS RANGE LAB L540.88658 NONREACTIVE NONREACTIVE Normal HCV AB Result Comment: SCREENING TEST NEGATIVE NONREACTIVE HCV ANTIBODY SCREEN IS CONSISTENT WITH NO HCV INFECTION, UNLESS RECENT INFECTION IS SUSPECTED OR OTHER EVIDENCE EXISTS TO INDICATE HCV INFECTION Performed By: #### L500.98286, L500.59203, L500.90955, L500.23814, L500.42690, L540.19203, L540.58505, L540.79874, L540.81729 #### [facility] [address] [phone] PORTABLE CHEST Observed: 02/13/2018 Status: F Source: [facility] 2:26 PM [facility] PORTABLE CHEST Ordering Physician: Yomaira Mullins MD 02/13/2018 3:29 PM SINGLE PORTABLE UPRIGHT CHEST 1601 HOURS Clinical Statement: Shortness of breath Comparison: None FINDINGS: Central venous catheter is shown the tip is within the caudal right atrium. Heart is mildly enlarged. There is a small left-sided effusion with associated airspace opacity. Pulmonary vasculature is mildly congested centrally. There is no pneumothorax. Impression: Borderline to mild cardiomegaly. Mild central pulmonary venous congestion. Left retrocardiac airspace opacity and small effusion. ---- Electronic Signature on File ---- Signed By: Kade Ramirez MD [email or web address] Dictated: 02/13/2018 4:24 PM Signed: 02/13/2018 4:26 PM Reported By: KADE RAMIREZ M.D. Signed By: KADE RAMIREZ M.D. EKG Observed: 02/13/2018 Status: UNK Source: [facility] 2:26 PM [facility] Procedure Date and Time: 02/13/18 1616 Test Reason : RT Blood Pressure : / mmHG Vent. Rate : 068 BPM Atrial Rate : 068 BPM P-R Int : 188 ms QRS Dur : 096 ms QT Int : 452 ms P-R-T Axes : 059 -34 116 degrees QTc Int : 480 ms Normal sinus rhythm Left axis deviation Left ventricular hypertrophy T wave abnormality, consider lateral ischemia Prolonged QT Abnormal ECG When compared with ECG of 04-OCT-2017 06:44, No significant change was found Confirmed by TING MENDEZ A. ([id number]) on 02/13/2018 9:47:02 PM Referred By: Yoamira Mullins Confirmed By:Contreras MENDEZ M.D.FACC Ruth DDandT: 02/13/18 1616 TDandT: [facility] PAT[facility] MEDICAL REC #: [id number] [place] [address] ADMIT DATE: 02/13/18 DISCHARGE DATE: ATTENDING PHY: Yomaira Mullins MD ELECTROCARDIOGRAM REPORT CLB cc: [facility] PATIENT NAME: [facility] MEDICAL REC #: [id number] [place] [address] ADMIT DATE: 02/13/18 DISCHARGE DATE: ATTENDING PHY: Yomaira Mullins MD ELECTROCARDIOGRAM REPORT OR Observed: 02/13/2018 Status: UNK Source: [facility] 2:26 PM [facility] REPOS[facility] DATE OF SERVICE: 02/14/2018 PREOPERATIVE DIAGNOSIS: Non-maturing arteriovenous fistula left radiocephalic. POSTOPERATIVE DIAGNOSIS: Non-maturing arteriovenous fistula left radiocephalic. OPERATION: 1. Ultrasound-guided retrograde access left radiocephalic arteriovenous fistula. 2. Antegrade access to left brachial artery with first order to take out placement. 3. Angioplasty of left radial artery with 2.5-mm x 12-cm Bradford balloon x2. 4. Angioplasty of proximal anastomosis and proximal arteriovenous fistula with 2.5-mm Bradford balloon x1. 5. Angioplasty of proximal arteriovenous fistula with 4-mm x 4-cm carotid balloon x2. SURGEON: Héctor Bonilla M.D. ANESTHESIA: Local. COMPLICATIONS: None. FINDINGS: Diminutive radial artery. Stenosis of proximal anastomosis as well as proximal outflow of A-V fistula with good results status post angioplasty. DESCRIPTION OF PROCEDURE: The patient was brought to the operative suite where she was placed in the supine position. She was placed on pulse oximetry and environmental monitoring technician. Local anesthetic was infused. Gained access under ultrasound guidance to the A-V fistula outflow in the upper forearm. A 4-Kenyan sheath was placed. Fistulogram through a catheter revealed the fistula itself was actually much better than the end of Abena study. However, the radial artery was quite diminutive and stenosis still at the anastomosis. Could not get retrograde access up to the radial artery from above so I did a counter access in the brachial artery using ultrasound-guided micropuncture technique. Cannulated the radial artery. Gained access with an angled Journey wire retrograde up the fistula from the radial artery. Systemically heparinized the patient. Waited 5 minutes. Angioplasty of the radial artery to upsize it 2.5 x 12-cm guided balloon to 12 atmospheres with two 2-minute inflations including the proximal anastomosis. It gave us great results and significant improvement in arterial inflow. Now angioplasty of the outflow with a 4 x 4 Bradford balloon to 12 atmospheres for two 2-minute inflations. It gave us a really nice result. I felt very confident about the results. Definitely maturity to improve. Probably will need some more time to mature and may need a repeat fistulogram for balloon maturation, but at this point it made a significant improvement. The sheath was removed. Pressure was held for hemostasis without incident. The patient tolerated the procedure well. [facility] PATIENT NAME: SANDY BRAVO [address] [place] MEDICAL REC #: [id number] [place] [address] ADMIT DATE: 02/13/18 DISCHARGE DATE: OPERATIVE REPORT ATTENDING PHY: Yomaira Mullins MD Héctor Bonilla MD [id number] SSI File#: [id number] Verified/Reviewed by 02/16/18 [address] [facility] PATIENT NAME: SANDY BRAVO [address] [place] MEDICAL REC #: [id number] [place] [address] ADMIT DATE: 02/13/18 DISCHARGE DATE: OPERATIVE REPORT ATTENDING PHY: Yomaira Mullins MD Observed: 02/13/2018 Status: UNK Source: [facility] 2:26 PM [facility] [facility] REPOS[facility] DATE OF CONSULTATION: 02/14/2018 REASON FOR CONSULTATION: Fistula maturation. HISTORY OF PRESENT ILLNESS: This 53-year-old white female with chronic renal failure actually was admitted for worsening renal failure requiring now hemodialysis. Patient was seen in September where she had a fistula placed, radiocephalic, had a followup fistulogram with maturation at end of December but failed to show up for 3 visits. Apparently, she was quite ill out in [place], eventually made her way to Dr. Mullins's office, who felt she needed to be admitted and started on dialysis. On examination, her fistula appeared to be maturing slowly, so we were asked to see the patient. PAST MEDICAL HISTORY: As above. CURRENT MEDICATIONS: Reviewed. ALLERGIES: PENICILLINS, CODEINE, and LATEX. REVIEW OF SYSTEMS: Some overall weakness but feels better since she got dialysis. No shortness of breath, chest pain, fever, or chills. No arm pain. PHYSICAL EXAMINATION: General: This is an elderly white female, alert, comfortable, in no distress. VITAL SIGNS: Temperature 98, pulse is 69, respirations 20, blood pressure 188/89. Heart: Regular rate and rhythm. Abdomen: Slightly obese but soft. Extremities: Reveal postsurgical incision, left radiocephalic area, well healed. She has a palpable thrill through the fistula, but it is diminutive. Radial and brachial pulses are intact. IMPRESSION: Left radiocephalic arteriovenous fistula, status post 6 months' formation, non-maturation. Underwent fistulogram, had quite diminutive vessels; at the fistulogram at the end of December, we made significant improvement, but I recommend fistula duplex, but anticipate fistulogram with repeat maturation depending on those results. Héctor Bonilla MD JUAN [id number] [facility] File#: [id number] [facility] PATIENT [facility] MEDICAL REC #: [id number] [place] [address] ADMIT DATE: 02/13/18 DISCHARGE DATE: CONSULTATION REPORT ATTENDING PHY: Yomaira Mullins MD Verified/Reviewed by 02/16/18 0648 PREJE [facility] PATIENT NAME: [facility] MEDICAL REC #: [id number] [place] [address] ADMIT DATE: 02/13/18 DISCHARGE DATE: CONSULTATION REPORT ATTENDING PHY: Yomaira Mullins MD DS Observed: 02/13/2018 Status: UNK Source: [facility] 2:26 PM [facility] REPOSITORY DATE OF ADMISSION: 02/13/2018 DATE OF DISCHARGE: 02/16/2018 REASON: 1. End-stage renal disease. 2. Hypertension. 3. Nephrotic syndrome. 4. Hypothyroidism. 5. Insulin-dependent diabetes. 6. Hyperlipidemia. CONDITION: Stable. DESTINATION: Home. FOLLOWUP: In [place] [facility] unit. PROCEDURE: Temporary dialysis catheter, dialysis treatment. DIET: 1800-calorie, ADA, 2-gram salt, 2-gram potassium and 1500 mL. HR ANALYST: Héctor Bonilla MD MEDICATIONS: 1. Folvite daily. 2. PhosLo 2 after every meal. 3. Lisinopril 20 twice daily. 4. Insulin Novolog and Humalog 10 units 3 times daily. 5. Lasix 80 twice daily. 6. Clonidine 0.3 twice daily. 7. Metoprolol 50 twice daily. 8. Aspirin 81 mg daily. 9. Tylenol p.r.n. 10. Prozac 40 mg daily. That is to be on hold for now but could be started again. 11. Synthroid 0.112 mg daily. In summary, a 53-year-old diabetic with the above complications, came to the office with audara. We know she has CKD stage 5, preparing her for dialysis. She has AV fistula created and intervened on it to be sure and ready. We admitted her from the office. Catheter inserted in our vascular lab. Start dialysis, adjust her medications carefully. She lost more than 12 pounds fluid. She feels better, stronger and arrangement to go back to [place] for dialysis treatment and later on, follow that channel of combined kidney, pancreas transplant. Yomaira Mullins MD [facility] PATIENT NAME: SANDY BRAVO [address] [place] MEDICAL REC #: [id number] [place] [address] ADMIT DATE: 02/13/18 DISCHARGE DATE: 02/16/18 DISCHARGE SUMMARY ATTENDING PHY: Yomaira Mullins MD [id number] [facility] File#: [id number] Verified/Reviewed by 02/20/18 0844 ASFJE [facility] PATIENT NAME: SANDY BRAVO [address] [place] MEDICAL REC #: [id number] [place] [address] ADMIT DATE: 02/13/18 DISCHARGE DATE: 02/16/18 DISCHARGE SUMMARY ATTENDING PHY: Yomaira Mullins MD Observed: 02/13/2018 Status: UNK Source: [facility] 12:00 AM [facility] REPOSITORY REASON FOR ADMISSION: CKD stage 5, end stage disease, uremia, anasarca. HISTORY: Mrs. Sandy Bravo is a very pleasant 53-year-old lady, suffered from insulin-dependent diabetes with complications of retinopathy, neuropathy, nephropathy, and finding some anasarca. I have been following her over the last year at [facility], came to the office today with significant edema and anasarca, weakness and tiredness, cannot function. We have been preparing her for dialysis treatment. We had AV fistula created by Dr. Bonilla with [facility], has not matured yet, and after working on her to get on the transplant list to combine kidney/pancreas transplant at [facility] yet to be done. In the office she was weak, tired, cannot stand. She gained a lot of weight and cannot function at home and we felt she was uremic, to require dialysis treatment. PAST MEDICAL HISTORY: 1. Insulin-dependent diabetes with nephropathy, retinopathy, neuropathy. 2. Coronary artery disease in the past, no intervention. 3. Hypertension. 4. Depression. 5. Hyperlipidemia. 6. Hypothyroidism. 7. Anemia; does not require Procrit. ALLERGIES: PENICILLIN AND CODEINE. SOCIAL HISTORY: . Has 1 daughter. She smoked for 40 years but she quit about 3 years ago. MEDICATIONS: 1. Fluoxetine 40 mg 1 tablet daily. 2. Synthroid 112 mcg daily. 3. Atorvastatin 40 mg daily. 4. Baby aspirin daily. 5. NovoLog 10 units in the morning. 6. Calcium 600 daily. 7. Vitamin D3 daily. 8. Amlodipine 10 mg once daily. 9. Clonidine 0.3 every 12 hours. 10. Multivitamins daily. 11. Tresiba 40 units at bedtime. REVIEW OF SYSTEMS: As stated above. All her systems reviewed, 12. PHYSICAL EXAMINATION: General: Very pale-looking lady, anasarcic, unsteady. Cannot function at home. Short of breath. [facility] PATIENT NAME: SANDY BRAVO [facility] [address] [facility] MEDICAL REC #: [id number] [place] [address] ADMIT DATE: 02/13/18 DISCHARGE DATE: HISTORY and PHYSICAL ATTENDING PHY: Yomaira Mullins MD Vital signs: Her weight is up to 173 pounds from a baseline 158. Blood pressure 169/79, heart rate 67. HEENT: Pupils equally round and reactive to light and accommodation. Retinopathy by fundi. Neck: Full. Lungs: Decreased breath sounds bilaterally. Heart: Regular rhythm. Distended abdomen. Abdomen: Soft. Positive bowel sounds. Possible ascites. Extremities: 3+ edema. Her AV fistula in the left arm good thrill and bruit, but does not seem mature. Neurological: She has neuropathy in the hands and the feet. Unsteady on standing. LABORATORY DATA: Her last lab available to me, from January 14, 2018, showed electrolytes 139, 4.0, 108, 20.2. BUN and creatinine 48, 4.3. GFR 11 mL/minute. Hemoglobin and hematocrit 11.1 and 32.3. ASSESSMENT: 1. Chronic kidney disease stage 5, uremic symptoms. 2. Anasarca with nephrotic syndrome. 3. Hypertension. 4. Coronary artery disease. 5. Insulin-dependent diabetes with all complications. 6. Depression. PLAN OF ACTION: Admit, proceed with dialysis treatment, control her volume. Readjust her medication and arrange for outpatient dialysis treatment and proceed to place her on the active transplant list for possible kidney/pancreas transplant, and follow along with you. Yomaira Mullins MD [id number] [facility] File#: [id number] Verified/Reviewed by 02/13/18 1529 ASFJE [facility] PATIENT NAME: SANDY BRAVO [address] [place] MEDICAL REC #: [id number] [place] [address] ADMIT DATE: 02/13/18 DISCHARGE DATE: HISTORY and PHYSICAL ATTENDING PHY: Yomaira Mullins MD HEMOGLOBIN A1C Collected: 02/10/2018 Status: F Source: [place] 8:[address] [facility] REPOSITORY TYPE CODE TESTS RESULT OUT OF REFERENCE UNITS RANGE LAB HGBA1C 4.3-5.6 % High Hemoglobin A1c 7.1 LAB HBA0 mg/dL Est. Average Glucose 157 Result Comment: eAG: (Estimated average glucose) is a calculated value from HgbA1c and is litigation claim representative of the average blood glucose level in the last 2-3 month period. Performed By: #### HBA1C, CMP, LIPB, TSH #### [facility] [address] [place], [place] [address] COMP METABOLIC PANEL Collected: 02/10/2018 Status: F Source: [place] 8:[address] [facility] REPOSITORY TYPE CODE TESTS RESULT OUT OF REFERENCE UNITS RANGE LAB TP 6.3-8.0 g/dL Low Protein, Total 5.9 LAB ALB 3.9-4.9 g/dL Low Albumin 3.3 LAB CA 8.5-10.2 mg/dL Low Calcium, Total 8.3 LAB TBIL 0.2-1.3 mg/dL Bilirubin, Total 0.3 LAB ALKP 32-117 U/L Alkaline High Phosphatase 222 LAB AST 13-35 U/L AST 16 LAB GLU 74-99 mg/dL Glucose High 188 Result Comment: The [place] Diabetes Association (ADA) provides guidance for cutoff values for fasting glucose and random glucose. The ADA defines fasting as no caloric intake for at least 8 hours. Fas ting plasma glucose results between 100 to 125 mg/dL indicate increased risk for diabetes (prediabetes). Fasting plasma glucose results greater than or equal to 126 mg/dL meet the criteria for diagnosis of diabetes. In the absence of unequivocal hyperglycemia, results should be confirmed by repeat testing. In a patient with classic symptoms of hyperglycemia or hyperglycemic crisis, random plasma glucose results greater than or equal to 200 mg/dL meet the criteria for diagnosis of diabetes. Reference: Standards of Medical Care in Diabetes 2016, [place] Diabetes Association. Diabetes Care. 2016.39(Suppl 1). LAB BUN 7-21 mg/dL BUN High 45 LAB CRET 0.58-0.96 mg/dL Creatinine High 4.81 LAB NA 136-144 mmol/L Sodium 139 LAB K 3.7-5.1 mmol/L Potassium High 5.2 LAB CL 97-105 mmol/L Chloride 104 LAB CO2 22-30 mmol/L Low CO2 16 LAB AGAP 9-18 mmol/L Anion Gap High 19 LAB ALT 7-38 U/L ALT 14 LAB GFRAA eGFR- Amer. 11 LAB GFRNAA . eGFR-All Other Races 9 Result Comment: eGFR (Estimated GFR) Units of measure: mL/min/1.73 meters squared eGFR is derived from the reexpressed MDRD Study equation using the following parameters: serum creatinine, age, gender and race. The creatinine assay has been calibrated to be traceable to IDMS. An eGFR <60 mL/min/1.73m2 for >3 months is consistent with chronic kidney disease. Refer to KDOQI guidelines for clinical interpretation. In patients with unstable renal function, e.g. those with acute kidney injury, the eGFR may not accurately reflect actual GFR. Performed By: #### HBA1C, CMP, LIPB, TSH #### [facility] [address] [place], [place] [address] LIPID PANEL, BASIC Collected: 02/10/2018 Status: F Source: [place] 8:46 AM [facility] REPOSITORY TYPE CODE TESTS RESULT OUT OF REFERENCE UNITS RANGE LAB CHOL <200 mg/dL Cholesterol 133 Result Comment: <200 mg/dL, Desirable 200-239 mg/dL, Borderline high >239 mg/dL, High LAB TRIGLY <150 mg/dL Triglyceride 104 Result Comment: <150 mg/dL, Normal 150-199 mg/dL, Borderline high 200-499 mg/dL, High >499 mg/dL, Very high LAB HDL >39 mg/dL HDL-Cholesterol 66 Result Comment: 40-59 mg/dL, Acceptable >59 mg/dL, High: Negative risk factor for coronary heart disease <40 mg/dL, Low: Positive risk factor for coronary heart disease LAB LDL <100 mg/dL LDL-Cholesterol 46 Result Comment: <100 mg/dL, Optimal 100-129 mg/dL, Near optimal/above optimal 130-159 mg/dL, Borderline high 160-189 mg/dL, High >189 mg/dL, Very high Secondary prevention optimal LDL Cholesterol levels are recommended to be < 70 mg/dL LAB NONHDL <130 mg/dL Non HDL Cholesterol 67 Result Comment: <130 mg/dL, Optimal 130-159 mg/dL, Near optimal/above optimal 160-189 mg/dL, Borderline high 190-219 mg/dL, High >219 mg/dL, Very high Secondary prevention optimal non HDL Cholesterol levels are recommended to be < 100 mg/dL LAB FT hrs Fasting Time 14 LAB VLDL <30 mg/dL VLDL Cholesterol 21 LAB TCHDL <5.10 TC:HDL Ratio 2.02 LAB LDLHDL <2.54 LDL:HDL Ratio 0.70 Result Comment: Reference: 1. National Cholesterol Education Program ATP III Guideline At-A-Glance Quick Desk Reference: National Heart, Lung, and Blood [place]. National Institutes of Health. 2001: NIH Publication No. 01-3305. 2. An International Atherosclerosis Society position paper: global recommendations for the management of dyslipidemia: executive summary, Atherosclerosis. 2014: 232(2):410-413. Performed By: #### HBA1C, CMP, LIPB, TSH #### [facility] [address] [place], [place] [address] TSH Collected: 02/10/2018 Status: F Source: [place] 8:[address] [facility] REPOSITORY TYPE CODE TESTS RESULT OUT OF RANGE REFERENCE UNITS LAB TSH 0.400-5.500 uU/mL TSH 4.350 Performed By: #### HBA1C, CMP, LIPB, TSH #### [facility] [address] [place], [place] [address] DISCHARGE SUMMARY Observed: 02/06/2018 Status: F Source: [place] 11:57 AM [facility] REPOSITORY [facility] DISCHARGE SUMMARY NAME ACCOUNT SEX AGE ADMIT DISCHARGE PT MED. RECORD# NUMBER DATE DATE TYPE SANDY BRAVO [id number] F 53 01/14/18 01/17/18 1 [id number] ROOM: 312 DATE OF : 1965 DICTATING PHYSICIAN: Jakob Samuel FINAL DIAGNOSES: 1. Acute kidney injury superimposed on chronic kidney disease, improved. 2. Uncontrolled diabetes mellitus type 1. 3. Hypertension with uncontrolled blood pressure. HOSPITAL COURSE: For full history and physical, please see chart. For brief summary, see below. This is a 52-year-old female with multiple medical problems including uncontrolled diabetes, chronic kidney disease, being prepared for dialysis and fistula placement. She follows with Dr. Mullins. She came in with nausea, vomiting, creatinine increased from a baseline of 3.5. Nephrology was contacted. Recommended IV fluids. They will follow her as an outpatient. She received IV fluids. Creatinine improved. They were stopped. Creatinine started to increase again. She did not have a urinary tract infection. She has uncontrolled blood pressure and medications were adjusted which can be reviewed by Nephrology tomorrow. Blood sugar has been uncontrolled for many years. She can follow up with Endocrinology as an outpatient as recommended. Blood sugars were monitored. She improved with treatment. Today, on the date of discharge she feels she is ready to go home. She does have an appointment with Nephrology tomorrow. Oxygen saturation is 93% on 1 liter. Blood pressure is 182/80, heart rate 87, respirations 18, temperature 97.9. This is a well-nourished, well-developed, 52-year-old female in no acute distress. Heart has regular rate and rhythm. Lungs are clear to auscultation bilaterally. MEDICATIONS ON DISCHARGE: (1) Enteric coated aspirin 81 mg daily. (2) Atorvastatin 40 mg daily. (3) Calcium 1 tablet daily. (4) Fluoxetine 40 mg daily. (5) Levothyroxine 112 mcg daily. (6) Metoprolol tartrate 50 mg b.i.d. (7) Multivitamin one tablet daily. (8) Novolog 8 units with breakfast, lunch and supper. (9) Toujeo 50 units qpm. (10) Vitamin D3 800 international units daily. (11) Amlodipine 10 mg daily. (12) Catapres 0.3 mg b.i.d. DISPOSITION/DISCHARGE INSTRUCTIONS/PLAN: Increase activity as tolerated. Followup appointment with Nephrology tomorrow as well as Primary Care. Ambulation with wheeled walker. Discharge per request. Blood pressure medications will be adjusted for home as above. She should monitor daily blood pressures, bring it to her primary care physician. Follow up with Page 1 of 2 SANDY BRAVO Discharge Summary Nephrology tomorrow to initiate dialysis as planned. Above was discussed with the patient. All questions were answered and the patient verbalized understanding of the plan. Dictated by cici Lockett for Jakob Samuel M.D. I personally evaluated and examined the patient and agree with above note that reflects my visit to the patient and my decision making. Jakob Samuel MD 02/05/18 14:09 JOB #: [id number] Transcribed By: diana 02/05/18 19:48 Electronically signed by: Jose Samuel M.D. 02/06/18 11:57 Page 2 of 2 SANDY BRAVO Discharge Summary DISCHARGE SUMMARY Observed: 02/04/2018 Status: F Source: [place] 11:38 AM [facility] DISCHARGE SUMMARY NAME ACCOUNT SEX AGE ADMIT DISCHARGE PT MED. RECORD# NUMBER DATE DATE TYPE SANDY BRAVO [id number] F 52 01/14/18 01/17/18 1 [id number] ROOM: [facility] DATE OF : 1965 DICTATING PHYSICIAN: Jakob Samuel DICTATION STARTS HERE including uncontrolled diabetes, chronic kidney disease being prepared for dialysis with fistula placement. She follows with Dr. Mullins. She came in with nausea and vomiting. Her creatinine was increased from her baseline of 3.5. Nephrology was contacted by emergency room who recommended IV fluids, and they will follow her up as an outpatient. She received IV fluids. Creatinine started to improve. They were stopped yesterday and creatinine started to increase again. She did not have a urinary tract infection. She has uncontrolled blood pressure, and medications were adjusted, which can be reviewed by nephrology tomorrow. Her blood sugars have been uncontrolled for many years. She can follow up with endocrinology as an outpatient. Blood sugars were monitored. She improved with treatment. Today, on the date of discharge, she feels she is ready to go home. She does have an appointment with nephrology tomorrow. Oxygen saturation is 93% on 1 liter, blood pressure 182/80, heart rate 87, respirations 18, temperature 97.9. This is a well-nourished, well-developed 52-year-old female in no acute distress. Heart is regular rate and rhythm. Lungs: Clear to auscultation bilaterally. Blood pressure medications will be adjusted for home. She should monitor her blood pressure daily, and bring to her primary care physician and follow up with nephrology to initiate dialysis. Dictated by cici Fang for Jakob Samuel M.D. Dictated By: Jakob Samuel MD 01/17/18 11:55 JOB #: [id number] Transcribed By: am 01/17/18 12:38 Electronically signed by: Jose Samuel M.D. 02/04/18 11:38 Page 1 of 1 SANDY BRAVO Discharge Summary EMERGENCY REPORT Observed: 01/18/2018 Status: F Source: [place] 2:26 AM [facility] EMERGENCY ROOM REPORT NAME ACCOUNT SEX AGE ADMIT DISCHARGE PT MED. RECORD# NUMBER DATE DATE TYPE [place] SANDY K [id number] F 52 01/14/18 1 [id number] ROOM: 312 DATE OF : 1965 DICTATING PHYSICIAN: Kade De La Torre ADDENDUM DIAGNOSTIC DATA: CAT scan of the brain was negative for any acute disease. Blood work showed a white count of 11,000. Hemoglobin 12.3, hematocrit 37.3, platelet count was 280,000. Lactate was normal at 17. BNP was elevated at 1378. Troponin was 0.02. Serum ketones were small. Sodium was 137, potassium 5, chloride 104, CO2 is low at 17.5. BUN was elevated at 63, creatinine elevated 4.9. I have a comparison BUN of 45 and a creatinine of 3.5 back on 08/16/2017. I have another comparison BUN and creatinine of 59 and 3.7 on 06/13/2017. Blood sugar was elevated at 396. Anion gap was elevated 21. Liver functions came back within normal limits. Urinalysis showed no white cells and no bacteria. Specific gravity was 1.01. There were 1000 glucose noted in the urine and 500 protein. EMERGENCY DEPARTMENT COURSE AND TREATMENT: I have continued to hydrate the patient here with IV fluids and did discuss the case with Dr. Lopez who was covering for Dr. Mullins, the patient's sustainable design consultant. He felt at this point, this patient is not requiring dialysis yet. He recommended continuing to hydrate the patient with IV fluids and rechecking her lab work tomorrow and we will see her BUN and creatinine is improving or not. Then we may be more in a position to make a decision about dialysis. He said definitely no dialysis tonight. I discussed the case with Dr. Samuel and he is okay with that. He will admit the patient for the IV hydration and we will recheck her renal function tomorrow. If it not improving, we will consult Dr. Lopez/Dr. Mullins for Nephrology again tomorrow and decide on further treatment options. I have discussed this with the patient and she is agreeable. DIAGNOSIS: 1. Acute on chronic renal failure. 2. Dehydration. 3. Diabetes mellitus poorly controlled. PLAN/DISPOSITION: The patient will be admitted to Dr. Samuel's service. Dictated By: Kade De La Torre DO 01/14/18 17:32 JOB #: [id number] Transcribed By: cholo 01/14/18 21:11 Page 1 of 2 SANDY BRAVO Emergency Room Report Electronically signed by: E-Sign: Dr. Kade De La Torre D.O. 01/18/18 02:26 Page 2 of 2 SANDY BRAVO Emergency Room Report EMERGENCY REPORT Observed: 01/18/2018 Status: F Source: [facility] 2:25 AM [facility] EMERGENCY ROOM REPORT NAME ACCOUNT SEX AGE ADMIT DISCHARGE PT MED. RECORD# NUMBER DATE DATE TYPE SANDY BRAVO [id number] F 52 01/14/18 1 [id number] ROOM: 312 DATE OF : 1965 DICTATING PHYSICIAN: Kade De La Torre TIME SEEN: 1250 hours. HISTORY OF PRESENT ILLNESS: The patient is a 52-year-old white female complaining of headache and dizziness. She states she has been vomiting a lot. She also complains of some chills off and on. She states that her ears feel plugged. Symptoms started on when she got real dizzy and fell. The dizziness has been getting worse since then. She denies striking her head in the fall on . She does complain of a diffuse generalized headache which she rates 9 on a severity scale of 1 to 10. She does have a history of migraine headaches, but she states this does not feel like her usual migraine headaches. PAST MEDICAL HISTORY: Hypertension and insulin dependent diabetes. She also has a history of stage IV chronic renal failure. She is not presently on dialysis but she does have a shunt in her left arm and they are getting ready to start dialysis. Dr. Mullins is her kidney doctor. PAST SURGICAL HISTORY: Appendectomy, cholecystectomy, hysterectomy. She has had a bowel surgery in the past for a bowel perforation. She has also had surgery in the past for a tubal , and she has had a hysterectomy. ALLERGIES: Latex, penicillin, codeine. SOCIAL HISTORY: She is not a smoker. She denies the use of alcohol. She lives at home with her spouse. REVIEW OF SYSTEMS: The patient admits to headache, dizziness, nausea, vomiting, chills, ear pain. She denies any chest pain, shortness of breath, cough, sputum, wheezing, abdominal pain. She does admit to nausea and vomiting. She denies any diarrhea, constipation, melena, hematochezia. She does admit to headache. She denies any numbness, unsteady gait, weakness, neck or back pain, joint pain, skin rashes, swelling, hives, hay fever, swollen glands. She does admit to dizziness and chills. Further review of systems is negative. PHYSICAL EXAMINATION: The patient is alert and oriented x3. The patient appears in some mild distress secondary to headache, but is pleasant and cooperative. HEENT: Head appears atraumatic. Pupils are equal and reactive to light. Red reflex is intact bilaterally. Extraocular muscles are intact. No conjunctival injection. No Page 1 of 2 [place]WR[place], SANDY [facility] Report scleral icterus or lid edema. TMs are intact bilaterally. No erythema noted. No cerumen in the external canals bilaterally. No mastoid tenderness or swelling. Nose exhibits no rhinorrhea or epistaxis. Mucous membranes are dry. Lips are somewhat dry as well. No pharyngeal erythema. Uvula is midline and elevates. NECK: Supple. Trachea is midline. No JVD or lymphadenopathy. No posterior cervical tenderness. No nuchal rigidity. LUNGS: Lungs are clear anteriorly but somewhat diminished bibasilar, but I note no wheezing or other adventitious sounds. No accessory muscle use. CV: Heart rate and rhythm are regular without murmur. ABDOMEN: Soft and nontender with normoactive bowel sounds x4 quadrants. No guarding or rigidity. No rebound. No palpable abdominal masses. No hepatosplenomegaly. BACK: No midline or paraspinal region tenderness. No increased paraspinal muscle rigidity. Negative Lloyds sign. EXTREMITIES: No edema or cyanosis. Peripheral pulses are intact. No motor or sensory deficits are noted. Hand sales promotion manager are strong and symmetric. SKIN: Skin is warm and dry. No diaphoresis or rash. NEURO: The patient is alert and oriented x4. No motor or sensory deficits noted. Speech is normal. PSYCH: Normal affect. Pleasant and cooperative. EMERGENCY DEPARTMENT COURSE AND TREATMENT: Presently we will obtains some screening blood work and we will hydrate with some IV fluids, because she does look dehydrated. We will give her some meclizine for the dizziness and we will do a CT brain for the dizziness and headache and then reevaluate. DIAGNOSIS: Dictated By: Kade De La Torre DO 01/14/18 13:17 JOB #: [id number] Transcribed By: cholo 01/14/18 19:35 Electronically signed by: E-Sign: Dr. Kade De La Torre D.O. 01/18/18 02:25 Page 2 of 2 BERTRAND BRAVOTimothy Oneill Emergency Room Report CBC Collected: 01/17/2018 Status: F Source: [facility] 4:54 AM [facility] REPOSITORY TYPE CODE TESTS RESULT OUT OF RANGE REFERENCE UNITS LAB CBC(LOINC) CBC Result Comment: CBC-COMPLETE BLOOD COUNT LAB WBC(LOINC) 4.5 - 10.8 x 10EE3/UL WBC 8.3 LAB RBC(LOINC) 4.10 - x 10EE6/UL 5.30 RBC Low 3.79 LAB HEMOGLOBIN(LOINC) 12.0 - g/dl 16.0 Low HEMOGLOBIN 11.1 LAB HEMATOCRIT(LOINC) 34.0 - % 46.0 Low HEMATOCRIT 32.3 LAB MCV(LOINC) 80 - 99 fl MCV 85 LAB MCH(LOINC) 27 - 33 pg MCH 29 LAB MCHC(LOINC) 32 - 36 X10 3 MCHC 34 LAB RDW/CV(LOINC) 12.0 - % 15.6 RDW/CV 14.4 LAB PLATELET(LOINC) 150 - 450 x10EE3/UL PLATELET 205 LAB MPV(LOINC) 6.6 - 10.5 fl MPV 7.1 Result Comment: AUTOMATED DIFFERENTIAL LAB NEUT %(LOINC) 46.0 - 76.0 % NEUT % High 76.7 LAB LYMPH %(LOINC) 20.0 - 45.0 % Low LYMPH % 12.3 LAB MONOS %(LOINC) 0.0 - 10.0 % MONOS % 7.5 LAB EO %(LOINC) 0.0 - 7.0 % EO % 2.7 LAB BASO %(LOINC) 0.0 - 2.0 % BASO % 0.8 LAB Lymph #(LOINC) 0.80 - 2.80 x10EE3/U L Lymph # 1.00 LAB Neut #(LOINC) 1.50 - 7.10 x10EE3/U L Neut # 6.40 LAB Maury #(LOINC) 0.20 - 1.00 x10EE3/U L Maury # 0.60 LAB EO #(LOINC) 0.00 - 0.50 x10EE3/U L EO # 0.20 LAB Baso #(LOINC) 0.00 - 0.10 x10EE3/U L Baso # 0.10 LAB MANUAL DIFF(LOINC) MANUAL DIFF N/A LAB MORPHOLOGY(LOINC ) MORPHOLOGY N/A Result Comment: {CD] Performed By: #### [id number] #### [facility],[address] [place] [id number] BNP (B-TYPE NATRIURETIC Collected: 01/17/2018 Status: F Source: [facility]) 4[facility] TYPE CODE TESTS RESULT OUT OF RANGE REFERENCE UNITS LAB BNP(LOINC) 1 - 100 pg/ml High BNP 376 Performed By: #### [id number] #### [facility],[address] [place] [address] CMP WITH EGFR Collected: 01/17/2018 Status: F Source: [facility] 4:54 AM [facility] REPOSITORY TYPE CODE TESTS RESULT OUT OF RANGE REFERENCE UNITS LAB CMP with eGFR(LOINC) CMP with eGFR Result Comment: COMPREHENSIVE METABOLIC PANEL LAB SODIUM(LOINC) 136 - 145 mmol/l SODIUM 139 LAB POTASSIUM(LOINC) 3.5 - 5.1 mmol/L POTASSIUM 4.1 LAB CHLORIDE(LOINC) 98 - 107 mmol/L CHLORIDE High 108 LAB CO2(LOINC) 21.0 - mmol/L 31.0 CO2 Low 20.7 LAB GLUCOSE(LOINC) 74 - 106 mg/dl GLUCOSE High 219 LAB BUN(LOINC) 6 - 20 mg/dl BUN High 48 LAB CREATININE(LOINC) 0.6 - 1.2 mg/dl High CREATININE 4.3 LAB AST/SGOT(LOINC) 13 - 39 U/L AST/SGOT High 40 LAB ALK PHOS(LOINC) 38 - 126 U/L ALK PHOS High 253 LAB CALCIUM(LOINC) 8.6 - mg/dl 10.2 CALCIUM Low 7.8 LAB TOTAL 6.4 - 8.3 g/dl PROTEIN(LOINC) TOTAL Low PROTEIN 5.0 LAB ALBUMIN(LOINC) 3.4 - 4.8 g/dL ALBUMIN Low 2.6 LAB GLOBULIN(LOINC) 1.5 - 3.8 G/DL GLOBULIN 2.4 LAB A/G RATIO(LOINC) 0.9 - 1.6 A/G RATIO 1.1 LAB TOTAL BILI(LOINC) 0.0 - 1.5 mg/dl TOTAL BILI 0.3 LAB B/C RATIO(LOINC) 0 - 30 ratio B/C RATIO 11 LAB ALT/SGPT(LOINC) 8 - 35 U/L ALT/SGPT High 44 LAB ANION GAP(LOINC) 10 - 20 mmol/L ANION GAP 14 LAB AGE(LOINC) years AGE 52 LAB eGFR(LOINC) 60 - 999 ML/MINUTE eGFR Low 11 LAB eGFR(AA)(LOINC) 60 - 999 ML/MINUTE eGFR(AA) Low 13 Result Comment: ACCORDING TO THE NATIONAL KIDNEY DISEASE EDUCATION PROGRAM(NKDE), A NORMAL eGFR IS A VALUE GREATER THAN OR EQUAL TO 60 ML/MIN/1.73 SQ METERS. CHRONIC KIDNEY DISEASE: <60mL/MIN/1.73 SQ METERS KIDNEY FAILURE: <15mL/MIN/1.73 SQ METERS THIS TEST SHOULD ONLY BE USED FOR PATIENTS 18 YEARS OF AGE AND OLDER. Performed By: #### [id number] #### [facility],[address] [place] [address] PROGRESS NOTE Observed: 01/16/2018 Status: F Source: [facility] 9:09 PM [facility] PROGRESS NOTE NAME ACCOUNT SEX AGE ADMIT DISCHARGE PT MED. RECORD# NUMBER DATE DATE TYPE SANDY BRAVO [id number] F 52 01/14/18 1 [id number] ROOM: [facility] DATE OF : 1965 DICTATING PHYSICIAN: Jakob Samuel DATE OF SERVICE: January 16, 2018 SUBJECTIVE: Events noted. The patient had significantly elevated blood pressure, improved somewhat when we started amlodipine, clonidine, and Labetalol. The patient's abdominal pain has improved. OBJECTIVE: No acute distress, lying down in bed comfortably. Blood pressure is 183/85, heart rate 101, respiratory rate 20, temperature 98.1, oxygen saturation 95% on 1 liter nasal cannula, and weight is 179 pounds with a body mass index of 29.79 kg/m2. Skin is warm and dry. Lungs: Symmetrical, equal lung expansion, diminished breath sounds bilaterally, clear to auscultation. Respiratory effort normal. Heart is regular rhythm. Abdomen is soft, slightly tender to deep palpation. No guarding or rebound. Extremities: Mild edema. Neurologic: The patient was alert and oriented x3. DIAGNOSTIC DATA: Laboratory data: WBCs 7.1, hemoglobin 10.0, hematocrit 28.6, platelet count 177,000. BNP is 438. Sodium 129, potassium 3.4, BUN 37, creatinine 3.6, glucose 206. Calcium is 6.4. Blood cultures are negative. Urine culture probable contamination. ASSESSMENT/PLAN: 1. Acute kidney injury superimposed on chronic kidney disease - improved significantly. Current creatinine is back to patient's baseline. We will go ahead and discontinue IV fluids as the patient is able to tolerate p.o. intake and follow up with nephrology as scheduled this coming . 2. Uncontrolled diabetes mellitus type 1. We will restart the patient on NovoLog, and once she is able to have adequate p.o. intake we will restart the patient's Toujeo. 3. Hypertension with uncontrolled blood pressure. We will restart the patient's medications and monitor blood pressure. 4. Prior history for congestive heart failure. BNP has improved. The patient is asymptomatic from that point of view. As mentioned above, we will discontinue IV fluids. 5. Possible discharge in the morning if stable. 6. Above was discussed with the patient in details. All of her questions were answered, and she expressed understanding of the plan of care. Dictated By: Jakob Samuel MD 01/16/18 11:38 Page 1 of 2 SANDY BRAVO Progress Note JOB #: [id number] Transcribed By: am 01/16/18 12:33 Electronically signed by: Jose Samuel M.D. 01/16/18 21:09 Page 2 of 2 SANDY BRAVO Progress Note CBC Collected: 01/16/2018 Status: F Source: [facility] 5:45 AM [facility] REPOSITORY TYPE CODE TESTS RESULT OUT OF RANGE REFERENCE UNITS LAB CBC(LOINC) CBC Result Comment: CBC-COMPLETE BLOOD COUNT LAB WBC(LOINC) 4.5 - 10.8 x 10EE3/UL WBC 7.1 LAB RBC(LOINC) 4.10 - x 10EE6/UL 5.30 RBC Low 3.36 LAB HEMOGLOBIN(LOINC) 12.0 - g/dl 16.0 Low HEMOGLOBIN 10.0 LAB HEMATOCRIT(LOINC) 34.0 - % 46.0 Low HEMATOCRIT 28.6 LAB MCV(LOINC) 80 - 99 fl MCV 85 LAB MCH(LOINC) 27 - 33 pg MCH 30 LAB MCHC(LOINC) 32 - 36 X10 3 MCHC 35 LAB RDW/CV(LOINC) 12.0 - % 15.6 RDW/CV 14.4 LAB PLATELET(LOINC) 150 - 450 x10EE3/UL PLATELET 177 LAB MPV(LOINC) 6.6 - 10.5 fl MPV 7.1 Result Comment: AUTOMATED DIFFERENTIAL LAB NEUT %(LOINC) 46.0 - 76.0 % NEUT % High 79.5 LAB LYMPH %(LOINC) 20.0 - 45.0 % Low LYMPH % 11.5 LAB MONOS %(LOINC) 0.0 - 10.0 % MONOS % 7.4 LAB EO %(LOINC) 0.0 - 7.0 % EO % 0.9 LAB BASO %(LOINC) 0.0 - 2.0 % BASO % 0.7 LAB Lymph #(LOINC) 0.80 - 2.80 x10EE3/U L Lymph # 0.80 LAB Neut #(LOINC) 1.50 - 7.10 x10EE3/U L Neut # 5.60 LAB Maury #(LOINC) 0.20 - 1.00 x10EE3/U L Maury # 0.50 LAB EO #(LOINC) 0.00 - 0.50 x10EE3/U L EO # 0.10 LAB Baso #(LOINC) 0.00 - 0.10 x10EE3/U L Baso # 0.00 LAB MANUAL DIFF(LOINC) MANUAL DIFF N/A LAB MORPHOLOGY(INC ) MORPHOLOGY N/A Result Comment: {CD] Performed By: #### [id number] #### [place] [id number] BNP (B-TYPE NATRIURETIC Collected: 01/16/2018 Status: F Source: [facility]) 5:45 AM [facility] REPOSITORY TYPE CODE TESTS RESULT OUT OF RANGE REFERENCE UNITS LAB BNP(INC) 1 - 100 pg/ml High BNP 438 Performed By: #### [id number] #### [place] [id number] BMP WITH EGFR Collected: 01/16/2018 Status: F Source: [facility] 5:45 AM [facility] REPOSITORY TYPE CODE TESTS RESULT OUT OF RANGE REFERENCE UNITS LAB BMP with eGFR(LOINC) BMP with eGFR Result Comment: BASIC METABOLIC PANEL LAB SODIUM(LOINC) 136 - 145 mmol/l Low SODIUM 129 LAB POTASSIUM(LOINC) 3.5 - 5.1 mmol/L Low POTASSIUM 3.4 LAB CHLORIDE(LOINC) 98 - 107 mmol/L CHLORIDE 103 LAB CO2(LOINC) 21.0 - mmol/L Low 31.0 CO2 16.3 LAB GLUCOSE(LOINC) 74 - 106 mg/dl GLUCOSE High 206 LAB BUN(LOINC) 6 - 20 mg/dl BUN High 37 LAB CREATININE(LOINC) 0.6 - 1.2 mg/dl High CREATININE 3.6 LAB CALCIUM(LOINC) 8.6 - mg/dl Low 10.2 CALCIUM Alert 6.4 Result Comment: { CALLED TO MARIA M@0717 / WKK { READ BACK BY MARIA M@0717 / RA@0715 LAB ANION GAP(LOINC) 10 - 20 mmol/L ANION GAP 13 LAB AGE(LOINC) years AGE 52 LAB eGFR(LOINC) 60 - 999 ML/MINUTE Low eGFR 13 LAB eGFR(AA)(LOINC) 60 - 999 ML/MINUTE Low eGFR(AA) 16 Result Comment: ACCORDING TO THE NATIONAL KIDNEY DISEASE EDUCATION PROGRAM(NKDE), A NORMAL eGFR IS A VALUE GREATER THAN OR EQUAL TO 60 ML/MIN/1.73 SQ METERS. CHRONIC KIDNEY DISEASE: <60mL/MIN/1.73 SQ METERS KIDNEY FAILURE: <15mL/MIN/1.73 SQ METERS THIS TEST SHOULD ONLY BE USED FOR PATIENTS 18 YEARS OF AGE AND OLDER. Performed By: #### [id number] #### [facility],[address] [place] [address] HISTORY AND PHYSICAL Observed: 01/15/2018 Status: F Source: [facility] 8:59 PM [facility] HISTORY & PHYSICAL NAME ACCOUNT SEX AGE ADMIT DISCHARGE PT MED. RECORD# NUMBER DATE DATE TYPE SANDY BRAVO [id number] F 52 01/14/18 1 [id number] ROOM: [facility] DATE OF : 63 DICTATING PHYSICIAN: Jakob Samuel CHIEF COMPLAINT: Nausea and vomiting. HISTORY OF PRESENT ILLNESS: This is a 52-year-old female with multiple medical problems, including uncontrolled diabetes mellitus, chronic kidney disease, hypertension, cardiomyopathy, hyperlipidemia, migraine headaches, and anxiety. She came to the Emergency Room. She had been having dizziness after vomiting, chills, and did not feel well. Her blood sugar was fluctuating. She has had a decreased appetite, headache and not feeling well. In the Emergency Room, CT of the brain showed no acute disease. BNP was elevated. BUN was 63 and creatinine 4.9. Her last creatinine before this was 3.5. She has been seeing Dr. Mullins as an outpatient and had a fistula placed for upcoming dialysis. In the Emergency Room, they spoke to Dr. Lopez, who was on-call for Dr. Mullins and recommended treatment with IV fluids, and they will follow her up as an outpatient. PAST MEDICAL HISTORY: (1) Chronic kidney disease, being prepared for dialysis with fistula placement and follows with Dr. Mullins. (2) Uncontrolled diabetes mellitus type 1. (3) Depression with anxiety. (4) GI bleed in the past. (5) Left subclavian vein DVT in the past. (6) Recurrent abdominal pain. (7) Uninodular goiter. (8) Hypertension. (9) Hypothyroidism. (10) Nonobstructive hypertrophic cardiomyopathy. (11) GERD. (12) Carpal tunnel syndrome. (13) Hyperlipidemia. (14) Migraine headaches. PAST SURGICAL HISTORY: (1) Cholecystectomy. (2) Hysterectomy. (3) Appendectomy. (4) Tubal ligation. (5) Repair of enterotomy with diverting colostomy. (6) Abdominal exploration with lysis of adhesions. (7) Abscess drainage in the past. (8) Carpal tunnel surgery. (9) Breast reduction and mammoplasty. (10) Fistula placed. MEDICATIONS: Current medications at home: (1) Enteric-coated aspirin 81 mg daily. (2) Atorvastatin 40 mg daily. (3) Calcium 600 mg daily. (4) Fluoxetine 40 mg daily. (5) Levothyroxine 112 mcg daily. (6) Metoprolol tartrate 50 mg twice daily. (7) Multivitamin one tab daily. (8) NovoLog 8 units with breakfast, lunch and supper. (9) Toujeo 50 units subcutaneously q.p.m. (10) Vitamin D3 800 international units daily. (11) Amlodipine 5 mg daily. (12) Clonidine 0.2 mg p.o. b.i.d. ALLERGIES: Penicillin and codeine. SOCIAL HISTORY: The patient is . She is a former smoker. She does not drink alcohol. Page 1 of 4 SANDY BRAVO History & Physical REVIEW OF SYSTEMS: She complains of having decreased appetite, abdominal discomfort, and recurrent nausea and vomiting. She did have normal bowel movements yesterday. Blood sugar has been fluctuating. She had dizziness, fatigue and generalized weakness. Otherwise, the rest of the review of systems were discussed and were negative. PHYSICAL EXAMINATION GENERAL APPEARANCE: The patient was lying in bed in no acute distress. She is alert, pleasant and cooperative. VITAL SIGNS: Blood pressure is 181/89, heart rate 95, respirations 18, temperature 98.6, oxygen saturation 95% on 4 liters, weight 170 pounds, and BMI 28.34. SKIN: Warm and dry. HEENT: Normocephalic, atraumatic. PERRLA. Conjunctivae are not injected. External pinna with no lesions. Nares revealed oxygen per nasal cannula, otherwise unremarkable. NECK: Supple. No nodes. No masses. No JVD. No bruit. LUNGS: Normal respiratory effort, diminished in the bases, otherwise clear. HEART: Regular rate and rhythm. ABDOMEN: Soft with some diffuse tenderness to palpation. No rebound or guarding. EXTREMITIES: Extremities revealed 1+ edema. NEUROLOGIC: She is alert and oriented and able to answer questions appropriately. DIAGNOSTIC DATA: White count was 11; repeated this morning 12.1. Hemoglobin is 11.2 and hematocrit 33.1. BNP is 1378; repeated this morning 1058. BUN on admission was 63 and creatinine 4.9. Creatinine this morning was 4.5. Glucose was 396; repeated was 260. Urinalysis with negative nitrites and negative leukocytes. Blood sugar log reviewed. CT of the brain without contrast completed in the Emergency Room and read by Radiology with age-appropriate atrophy with no acute disease. Chest x-ray, AP, with cardiomegaly with no acute changes. IMPRESSIONS/PLAN: 1. Acute kidney injury superimposed on chronic kidney disease. She is being set up for dialysis as an outpatient. Nephrology was contacted from the Emergency Room and recommended IV fluid resuscitation, and creatinine has improved today. We will Page 2 of 4 SANDY BRAVO History & Physical check a UA and urine C&S if it has not been completed. She does have an outpatient appointment with Nephrology on . 2. Uncontrolled diabetes mellitus type 1. This has been an ongoing issue for this patient for many years. We will monitor blood sugars with sliding insulin scale, as she is currently NPO. She will need further follow-up with Endocrinology as an outpatient. 3. Hypertension with uncontrolled blood pressure. Due to the nausea and vomiting, changed to a clonidine patch. We will adjust and monitor the blood pressure. 4. History of cardiomyopathy. BNP is elevated. Careful IV fluids. BNP actually on repeat was decreased, and she is asymptomatic. 5. Multiple chronic medical problems, which appear stable at present. The above was discussed with the patient. She is on SCDs for DVT prophylaxis. All of her questions were answered, and she verbalized understanding of the plan. Dictated by cici Lockett for Dr. Samuel. I personally evaluated and examined the patient and agree with above note that reflects my visit to the patient and my decision making. Jakob Samuel MD 01/15/18 13:08 JOB #: [id number] Transcribed By: hector 01/15/18 14:01 Electronically signed by: Jose Samuel M.D. 01/15/18 20:59 Update to H&P: [ ] No changes: I have examined the patient and reviewed the H&P and there are no changes. [ ] As previously dictated with the following changes: Page 3 of 4 SANDY BRAVO History & Physical PHYSICIAN SIGNATURE: TIME: DATE: Page 4 of 4 SANDY BRAVO History & Physical BMP WITH EGFR Collected: 01/15/2018 Status: F Source: [facility] 7:15 PM [facility] REPOSITORY TYPE CODE TESTS RESULT OUT OF RANGE REFERENCE UNITS LAB BMP with eGFR(LOINC) BMP with eGFR Result Comment: BASIC METABOLIC PANEL LAB SODIUM(LOINC) 136 - 145 mmol/l SODIUM 137 LAB POTASSIUM(LOINC) 3.5 - 5.1 mmol/L POTASSIUM 4.0 LAB CHLORIDE(LOINC) 98 - 107 mmol/L CHLORIDE High 108 LAB CO2(LOINC) 21.0 - mmol/L 31.0 CO2 Low 20.9 LAB GLUCOSE(LOINC) 74 - 106 mg/dl GLUCOSE High 240 LAB BUN(LOINC) 6 - 20 mg/dl BUN High 48 LAB CREATININE(LOINC) 0.6 - 1.2 mg/dl High CREATININE 4.5 LAB CALCIUM(LOINC) 8.6 - mg/dl 10.2 CALCIUM Low 8.0 LAB ANION GAP(LOINC) 10 - 20 mmol/L ANION GAP 12 LAB AGE(LOINC) years AGE 52 LAB eGFR(LOINC) 60 - 999 ML/MINUTE eGFR Low 10 LAB eGFR(AA)(LOINC) 60 - 999 ML/MINUTE eGFR(AA) Low 12 Result Comment: ACCORDING TO THE NATIONAL KIDNEY DISEASE EDUCATION PROGRAM(NKDE), A NORMAL eGFR IS A VALUE GREATER THAN OR EQUAL TO 60 ML/MIN/1.73 SQ METERS. CHRONIC KIDNEY DISEASE: <60mL/MIN/1.73 SQ METERS KIDNEY FAILURE: <15mL/MIN/1.73 SQ METERS THIS TEST SHOULD ONLY BE USED FOR PATIENTS 18 YEARS OF AGE AND OLDER. Performed By: #### [id number] #### [facility],[address] [place] [address] URINALYSIS Collected: 01/15/2018 Status: F Source: [facility] 4:23 PM [facility] REPOSITORY TYPE CODE TESTS RESULT OUT OF REFERENCE UNITS RANGE LAB URINALYSIS (LOINC) URINALYSIS Result Comment: URINALYSIS LAB Specimen Type(LOINC) Specimen Type Clean catch LAB Color(LOINC) NORMAL: YELLOW Color p.yel LAB Clarity(LOINC) NORMAL: CLEAR Clarity clear LAB ph(LOINC) NORMAL: 5.0-8.0 ph 8 LAB Protein(LOINC) NORMAL: NEGATIVE Protein Abnormal 500 LAB Glucose(LOINC) NORMAL: NORMAL Glucose Abnormal 250 LAB Ketone(LOINC) NORMAL: NEGATIVE Ketone NEG LAB Bilirubin(LOINC) NORMAL: NEGATIVE Bilirubin NEG LAB Blood(LOINC) NORMAL: NEGATIVE Blood Abnormal 25 LAB Urobilinog(LOINC) NORMAL: NORMAL Urobilinog NORM LAB Sp [place](LOINC) NORMAL: 1.010-1.030 Sp [place] 1.010 LAB Nitrite(LOINC) NORMAL: NEGATIVE Nitrite NEG LAB Leukocytes(LOINC) NORMAL: NEGATIVE Leukocytes NEG LAB Microscopic(LOINC ) Microscopic SEE BELOW Result Comment: MICROSCOPIC LAB Wbc(LOINC) 0-5/hpf Wbc NONE LAB Rbc(LOINC) 0-3/hpf Rbc 0-5 LAB Casts(LOINC) Casts NONE LAB Crystals(LOINC) Crystals NONE LAB Amorphous(LOINC) Amorphous NONE LAB Bacteria(LOINC) Bacteria NONE LAB Epi Cells(LOINC) Epi Cells NONE LAB Mucous(LOINC) Mucous NONE LAB Yeast(LOINC) Yeast NONE Performed By: #### [id number] #### [facility],[address] [place] [address] Observed: 01/15/2018 Status: F Source: [facility] CULTURE URINE 4:23 PM [facility] REPOSITORY CULTURE URINE _URINE CULTURE_ M I C R O B I O L O G Y R E P O R T FINAL Antimicrobial Susceptibility and Organism Identification Report Specimen Number : [id number] Requested : 01/15/18 Specimen Source : CLEAN CATCH URINE Collected : 01/15/18 16:23 [place] of Isolation : Med/Surg Received : 01/15/18 16:23 Requesting Physician : DAVID Patient/Specimen Tests and Comments Specimen Comments FINAL REPORT: URINE COLONY COUNT: [id number] CFU/CC >OR=TO 3 COLONY TYPES PROBABLE CONTAMINATION Tech : Source : CLEAN CATCH URINE ID # : [id number] FINAL Report Date : / / : Collected : 01/15/18 16:23 01/18/[email or web address]. 01/17/18.0857.KLS. 01/18/[email or web address].COMPLETE Performed By: #### [id number] #### [facility],[address] [place] [address] BMP WITH EGFR Collected: 01/15/2018 Status: F Source: [facility] 9:24 AM [facility] REPOSITORY TYPE CODE TESTS RESULT OUT OF RANGE REFERENCE UNITS LAB BMP with eGFR(LOINC) BMP with eGFR Result Comment: BASIC METABOLIC PANEL LAB SODIUM(LOINC) 136 - 145 mmol/l SODIUM 138 LAB POTASSIUM(LOINC) 3.5 - 5.1 mmol/L POTASSIUM 4.2 LAB CHLORIDE(LOINC) 98 - 107 mmol/L CHLORIDE High 109 LAB CO2(LOINC) 21.0 - mmol/L 31.0 CO2 Low 16.9 LAB GLUCOSE(LOINC) 74 - 106 mg/dl GLUCOSE High 260 LAB BUN(LOINC) 6 - 20 mg/dl BUN High 53 LAB CREATININE(LOINC) 0.6 - 1.2 mg/dl High CREATININE 4.5 LAB CALCIUM(LOINC) 8.6 - mg/dl 10.2 CALCIUM Low 7.9 LAB ANION GAP(LOINC) 10 - 20 mmol/L ANION GAP 16 LAB AGE(LOINC) years AGE 52 LAB eGFR(LOINC) 60 - 999 ML/MINUTE eGFR Low 10 LAB eGFR(AA)(LOINC) 60 - 999 ML/MINUTE eGFR(AA) Low 12 Result Comment: ACCORDING TO THE NATIONAL KIDNEY DISEASE EDUCATION PROGRAM(NKDE), A NORMAL eGFR IS A VALUE GREATER THAN OR EQUAL TO 60 ML/MIN/1.73 SQ METERS. CHRONIC KIDNEY DISEASE: <60mL/MIN/1.73 SQ METERS KIDNEY FAILURE: <15mL/MIN/1.73 SQ METERS THIS TEST SHOULD ONLY BE USED FOR PATIENTS 18 YEARS OF AGE AND OLDER. Performed By: #### [id number] #### [place] [id number] BNP (B-TYPE NATRIURETIC Collected: 01/15/2018 Status: F Source: [facility]) 9:24 AM [facility] REPOSITORY TYPE CODE TESTS RESULT OUT OF RANGE REFERENCE UNITS LAB BNP(LOINC) 1 - 100 pg/ml High BNP 1058 Performed By: #### [id number] #### [place] [id number] CBC Collected: 01/15/2018 Status: F Source: [facility] 9:24 AM [facility] REPOSITORY TYPE CODE TESTS RESULT OUT OF RANGE REFERENCE UNITS LAB CBC(LOINC) CBC Result Comment: CBC-COMPLETE BLOOD COUNT LAB WBC(LOINC) 4.5 - 10.8 x 10EE3/UL WBC High 12.1 LAB RBC(LOINC) 4.10 - x 10EE6/UL 5.30 RBC Low 3.88 LAB HEMOGLOBIN(LOINC 12.0 - g/dl ) 16.0 Low HEMOGLOBIN 11.2 LAB HEMATOCRIT(LOINC 34.0 - % ) 46.0 Low HEMATOCRIT 33.1 LAB MCV(LOINC) 80 - 99 fl MCV 85 LAB MCH(LOINC) 27 - 33 pg MCH 29 LAB MCHC(LOINC) 32 - 36 X10 3 MCHC 34 LAB RDW/CV(LOINC) 12.0 - % 15.6 RDW/CV 14.2 LAB PLATELET(LOINC) 150 - 450 x10EE3/UL PLATELET 232 LAB MPV(LOINC) 6.6 - 10.5 fl MPV 7.3 Result Comment: AUTOMATED DIFFERENTIAL LAB NEUT %(LOINC) 46.0 - 76.0 % NEUT % High 79.1 LAB LYMPH %(LOINC) 20.0 - 45.0 % Low LYMPH % 11.7 LAB MONOS %(LOINC) 0.0 - 10.0 % MONOS % 7.4 LAB EO %(LOINC) 0.0 - 7.0 % EO % 0.9 LAB BASO %(LOINC) 0.0 - 2.0 % BASO % 0.9 LAB Lymph #(LOINC) 0.80 - 2.80 x10EE3/U L Lymph # 1.40 LAB Neut #(LOINC) 1.50 - 7.10 x10EE3/U L Neut # High 9.50 LAB Maury #(LOINC) 0.20 - 1.00 x10EE3/U L [place] # 0.90 LAB EO #(LOINC) 0.00 - 0.50 x10EE3/U L EO # 0.10 LAB Baso #(LOINC) 0.00 - 0.10 x10EE3/U L Baso # 0.10 LAB MANUAL DIFF(LOINC) MANUAL DIFF N/A LAB MORPHOLOGY(LOIN C) MORPHOLOGY SEE BELOW LAB PLT EST(LOINC) PLT EST NORMAL Result Comment: {CD] Performed By: #### [id number] #### [facility],[address] [place], [place] [id number] CNPN Observed: 01/15/2018 Status: COMPLETED Source: [place] 12:[address] [facility] REPOSITORY Telephone (PHMEWO) SANDY BRAVO ([id number]) 1965 F Date Time Provider Department 01/15/18 ALFREDA (PHARMACIST), PENNIE MADRIGAL During your visit today, we recorded the following information about you: Alfreda (Pharmacist), Pennie 01/15/2018 12:46 PM Signed PharmD called and LVM re: moving 02/15 appointment to sooner time as requested. Pennie Vicente PharmD, BCPS Alfreda (Pharmacist), Pennie 01/15/2018 1:36 PM Signed Patient's returned called and reports patient in the hospital, due to something have to do with her kidneys. Will await their phone call post-discharge. Pennie Vicente PharmD, BCPS Allergies As of Date: 01/15/2018 Noted Allergy Reaction CODEINE 12/11/2006 8 - GI Upset LATEX 03/22/2012 4 - Hives Comments: 2006 had reaction after surgery PENICILLINS 12/11/2006 7 - Swelling Date Reviewed: 01/09/2018 Reviewed by: Vero Manzano, Dahlia N - Fully Assessed Reason for Visit: Future Appointment [[id number]] Prescriptions as of 01/15/2018 Sig: PEN NEEDLE, DIABETIC 31 GAUGE* Use one needle per dose. one * INSULIN GLARGINE (U-300) 300 * Inject 50 Units subcutaneousl* CLONIDINE HCL 0.2 MG TABLET Take 0.2 mg by mouth twice da* AMLODIPINE 5 MG TABLET Take 5 mg by mouth once daily. METOPROLOL TARTRATE 50 MG TAB* Take 1 tablet by mouth twice * FLUOXETINE 40 MG CAPSULE Take 1 capsule by mouth once * ATORVASTATIN 40 MG TABLET Take 1 tablet by mouth daily * INSULIN ASPART U-100 100 UNI* Inject eight (8) units three * LEVOTHYROXINE 112 MCG TABLET TAKE ONE TABLET BY MOUTH ONCE* BLOOD SUGAR DIAGNOSTIC STRIPS Test blood sugar(s) 3 times d* BLOOD-GLUCOSE METER KIT 1 Each three times daily. E11* TERBINAFINE HCL 1 % TOPICAL C* Apply 1 application to affect* INSULIN SYRINGE-NEEDLE U-100 * Use twice daily as directed. * ASPIRIN 81 MG TABLET,DELAYED * Take 1 tablet by mouth once d* * DAILY MULTIVITAMIN TABLET Take one(1) tablet daily. Problem List As Of Date 01/15/2018 Noted Resolved Calculus of ureter [N20.1] INVALID FOR*03/22/2012 Urinary tract infection, site not specified [N3*INVALID FOR*03/22/2012 Renal colic [N23] INVALID FOR*03/22/2012 Uncontrolled type 2 diabetes mellitus with prot*INVALID FOR* HTN (hypertension) [I10] INVALID FOR* Hyperlipidemia [E78.5] INVALID FOR* Depression [F32.9] INVALID FOR* Hypothyroid [E03.9] INVALID FOR* ASCVD (arteriosclerotic cardiovascular disease)*INVALID FOR* Proteinuria [R80.9] INVALID FOR* CKD (chronic kidney disease) stage 3, GFR 30-59*INVALID FOR*05/02/2017 CKD (chronic kidney disease) stage 4, GFR 15-29*INVALID FOR* More... Encounter Status:Closed by ALFREDA (PHARMACIST)PENNIE on 01/15/18 URINALYSIS Collected: 01/14/2018 Status: F Source: [facility] [facility] 4:42 PM [facility] REPOSITORY TYPE CODE TESTS RESULT OUT OF REFERENCE UNITS RANGE LAB URINALYSIS (LOINC) URINALYSIS Result Comment: URINALYSIS LAB Specimen Type(LOINC) Specimen Type Void LAB Color(LOINC) NORMAL: YELLOW Color p.yel LAB Clarity(LOINC) NORMAL: CLEAR Clarity clear LAB ph(LOINC) NORMAL: 5.0-8.0 ph 7 LAB Protein(LOINC) NORMAL: NEGATIVE Protein Abnormal 500 LAB Glucose(LOINC) NORMAL: NORMAL Glucose Abnormal 1000 LAB Ketone(LOINC) NORMAL: NEGATIVE Ketone Abnormal 15 LAB Bilirubin(LOINC) NORMAL: NEGATIVE Bilirubin NEG LAB Blood(LOINC) NORMAL: NEGATIVE Blood Abnormal 10 LAB Urobilinog(LOINC) NORMAL: NORMAL Urobilinog NORM LAB Sp [place](LOINC) NORMAL: 1.010-1.030 Sp [place] 1.010 LAB Nitrite(LOINC) NORMAL: NEGATIVE Nitrite NEG LAB Leukocytes(LOINC) NORMAL: NEGATIVE Leukocytes NEG LAB Microscopic(LOINC ) Microscopic SEE BELOW Result Comment: MICROSCOPIC LAB Wbc(LOINC) 0-5/hpf Wbc NONE LAB Rbc(LOINC) 0-3/hpf Rbc 0-5 LAB Casts(LOINC) Casts NONE LAB Crystals(LOINC) Crystals NONE LAB Amorphous(LOINC) Amorphous NONE LAB Bacteria(LOINC) Bacteria NONE LAB Epi Cells(LOINC) Epi Cells NONE LAB Mucous(LOINC) Mucous NONE LAB Yeast(LOINC) Yeast NONE Performed By: #### [id number] #### [facility],[address] [place] [id number] Observed: 01/14/2018 Status: F Source: [facility] CULTURE URINE 4:42 PM [facility] REPOSITORY CULTURE URINE _URINE CULTURE_ M I C R O B I O L O G Y R E P O R T FINAL Antimicrobial Susceptibility and Organism Identification Report Specimen Number : [id number] Requested : 01/14/18 Specimen Source : URINE Collected : 01/14/18 16:42 [facility] : Med/Surg Received : 01/14/18 16:42 Requesting Physician : DAVID Patient/Specimen Tests and Comments Specimen Comments FINAL REPORT: URINE COLONY COUNT: [id number] CFU/CC >OR=TO 3 COLONY TYPES PROBABLE CONTAMINATION Tech : Source : URINE ID # : [id number] FINAL Report Date : / / : Collected : 01/14/18 16:42 01/17/18.0919.KLS. 01/16/18.0839.BKO. 01/17/18.0920.KLS.COMPLETE Performed By: #### [id number] #### [facility],[address] [place] [address] Observed: 01/14/2018 Status: F Source: [facility] CULTURE BLOOD 2:20 PM [facility] REPOSITORY CULTURE BLOOD _BLOOD CULTURE_ SET: 1 of 2 24HOUR REPORT NO GROWTH 48HOUR REPORT NO GROWTH 72HOUR REPORT NO GROWTH GRAM STAIN: N/A M I C R O B I O L O G Y R E P O R T FINAL Antimicrobial Susceptibility and Organism Identification Report Specimen Number : [id number] Requested : 01/14/18 Specimen Source : BLOOD Collected : 01/14/18 14:20 [facility] : Emergency Room Received : 01/14/18 14:20 Requesting Physician : WIL Patient/Specimen Tests and Comments Specimen Comments FINAL REPORT: No Growth at 5 Days Tech : Source : BLOOD ID # : [id number] FINAL Report Date : / / : Collected : 01/14/18 14:20 01/18/18.BKO. 01/18/18.DEB.COMPLETE Performed By: #### [id number] #### [facility],[address] [place] [address] CBC Collected: 01/14/2018 Status: F Source: [facility] 1:45 PM [facility] REPOSITORY TYPE CODE TESTS RESULT OUT OF RANGE REFERENCE UNITS LAB CBC(LOINC) CBC Result Comment: CBC-COMPLETE BLOOD COUNT LAB WBC(LOINC) 4.5 - 10.8 x 10EE3/UL WBC High 11.0 LAB RBC(LOINC) 4.10 - x 10EE6/UL 5.30 RBC 4.33 LAB HEMOGLOBIN(LOINC 12.0 - g/dl ) 16.0 HEMOGLOBIN 12.3 LAB HEMATOCRIT(LOINC 34.0 - % ) 46.0 HEMATOCRIT 37.3 LAB MCV(LOINC) 80 - 99 fl MCV 86 LAB MCH(LOINC) 27 - 33 pg MCH 29 LAB MCHC(LOINC) 32 - 36 X10 3 MCHC 33 LAB RDW/CV(LOINC) 12.0 - % 15.6 RDW/CV 14.0 LAB PLATELET(LOINC) 150 - 450 x10EE3/UL PLATELET 280 LAB MPV(LOINC) 6.6 - 10.5 fl MPV 7.4 Result Comment: AUTOMATED DIFFERENTIAL LAB NEUT %(LOINC) 46.0 - 76.0 % NEUT % High 89.8 LAB LYMPH %(LOINC) 20.0 - 45.0 % Low LYMPH % 6.5 LAB MONOS %(LOINC) 0.0 - 10.0 % MONOS % 3.0 LAB EO %(LOINC) 0.0 - 7.0 % EO % 0.0 LAB BASO %(LOINC) 0.0 - 2.0 % BASO % 0.7 LAB Lymph #(LOINC) 0.80 - 2.80 x10EE3/U Low L Lymph # 0.70 LAB Neut #(LOINC) 1.50 - 7.10 x10EE3/U L Neut # High 9.90 LAB Maury #(LOINC) 0.20 - 1.00 x10EE3/U L [place] # 0.30 LAB EO #(LOINC) 0.00 - 0.50 x10EE3/U L EO # 0.00 LAB Baso #(LOINC) 0.00 - 0.10 x10EE3/U L Baso # 0.10 LAB MANUAL DIFF(LOINC) MANUAL DIFF N/A LAB MORPHOLOGY(LOINC ) MORPHOLOGY N/A Result Comment: {CD] Performed By: #### [id number] #### [facility],[address] [place], [place] [id number] LACTATE Collected: 01/14/2018 Status: F Source: [facility] 1:45 PM [facility] REPOSITORY TYPE CODE TESTS RESULT OUT OF REFERENCE UNITS RANGE LAB LACTATE(BENEDICTO 4.5 - 18.0 mg/dL NC) LACTATE 17.1 Performed By: #### [id number] #### [facility],[address] [place] [address] CMP WITH EGFR Collected: 01/14/2018 Status: F Source: [facility] 1:45 PM [facility] REPOSITORY TYPE CODE TESTS RESULT OUT OF RANGE REFERENCE UNITS LAB CMP with eGFR(LOINC) CMP with eGFR Result Comment: COMPREHENSIVE METABOLIC PANEL LAB SODIUM(LOINC) 136 - 145 mmol/l SODIUM 137 LAB POTASSIUM(LOINC) 3.5 - 5.1 mmol/L POTASSIUM 5.0 LAB CHLORIDE(LOINC) 98 - 107 mmol/L CHLORIDE 104 LAB CO2(LOINC) 21.0 - mmol/L 31.0 CO2 Low 17.5 LAB GLUCOSE(LOINC) 74 - 106 mg/dl GLUCOSE High 396 LAB BUN(LOINC) 6 - 20 mg/dl BUN High 63 LAB CREATININE(LOINC) 0.6 - 1.2 mg/dl High CREATININE 4.9 LAB AST/SGOT(LOINC) 13 - 39 U/L AST/SGOT 13 LAB ALK PHOS(LOINC) 38 - 126 U/L ALK PHOS High 188 LAB CALCIUM(LOINC) 8.6 - mg/dl 10.2 CALCIUM 8.7 LAB TOTAL 6.4 - 8.3 g/dl PROTEIN(LOINC) TOTAL PROTEIN 6.7 LAB ALBUMIN(LOINC) 3.4 - 4.8 g/dL ALBUMIN 3.7 LAB GLOBULIN(LOINC) 1.5 - 3.8 G/DL GLOBULIN 3.0 LAB A/G RATIO(LOINC) 0.9 - 1.6 A/G RATIO 1.2 LAB TOTAL BILI(LOINC) 0.0 - 1.5 mg/dl TOTAL BILI 0.5 LAB B/C RATIO(LOINC) 0 - 30 ratio B/C RATIO 13 LAB ALT/SGPT(LOINC) 8 - 35 U/L ALT/SGPT 9 LAB ANION GAP(LOINC) 10 - 20 mmol/L ANION High GAP 21 LAB AGE(LOINC) years AGE 52 LAB eGFR(LOINC) 60 - 999 ML/MINUTE eGFR Low 9 LAB eGFR(AA)(LOINC) 60 - 999 ML/MINUTE eGFR(AA) Low 11 Result Comment: ACCORDING TO THE NATIONAL KIDNEY DISEASE EDUCATION PROGRAM(NKDE), A NORMAL eGFR IS A VALUE GREATER THAN OR EQUAL TO 60 ML/MIN/1.73 SQ METERS. CHRONIC KIDNEY DISEASE: <60mL/MIN/1.73 SQ METERS KIDNEY FAILURE: <15mL/MIN/1.73 SQ METERS THIS TEST SHOULD ONLY BE USED FOR PATIENTS 18 YEARS OF AGE AND OLDER. Performed By: #### [id number] #### [place] [id number] TROPONIN Collected: 01/14/2018 Status: F Source: [facility] 1:45 PM [facility] REPOSITORY TYPE CODE TESTS RESULT OUT OF REFERENCE UNITS RANGE LAB TROPONIN 0.00 - 0.05 ng/ml I(LOINC) TROPONIN I 0.02 Result Comment: Elevated troponin (above the 99th percentile) usually indicates myocardial ischemia. Results must be interpreted within the clinical setting. 1.Non-ischemic pathology can also cause elevated troponin levels (e.g., acute pulmonary embolism, myocarditis, pericarditis, heart failure, intracranial injury, rhabdomyolisis, sepsis, shock and renal insufficiency). 2.Approximately 1% of healthy adults have elevated troponin levels. 3.Analytical false positive results rarely occur(due to multiple interferences such as heterophile antibodies). Performed By: #### [id number] #### [place] [id number] BNP (B-TYPE NATRIURETIC Collected: 01/14/2018 Status: F Source: [facility] PEPTIDE) 1:45 PM [facility] REPOSITORY TYPE CODE TESTS RESULT OUT OF RANGE REFERENCE UNITS LAB BNP(LOINC) 1 - 100 pg/ml High BNP 1378 Performed By: #### [id number] #### [place] [id number] KETONE, BLOOD, QUAL Collected: 01/14/2018 Status: F [facility]:45 PM [facility] REPOSITORY TYPE CODE TESTS RESULT OUT OF REFERENCE UNITS RANGE LAB KETONES(BENEDICTO DOUGLAS - NC) NEGATIVE KETONES SMALL Result Comment: SPECIMEN SERUM Performed By: #### [id number] #### [facility],[address] [place] [address] Observed: 01/14/2018 Status: F Source: [facility] CULTURE BLOOD 1:45 PM [facility] REPOSITORY CULTURE BLOOD _BLOOD_CULTURE_ 01/15/18.1411.JLN. SET: 2 of 2 24HOUR REPORT NO GROWTH 48HOUR REPORT NO GROWTH 72HOUR REPORT NO GROWTH GRAM STAIN: N/A M I C R O B I O L O G Y R E P O R T FINAL Antimicrobial Susceptibility and Organism Identification Report Specimen Number : [id number] Requested : 01/14/18 Specimen Source : BLOOD Collected : 01/14/18 13:45 [facility] [place] : Emergency Room Received : 01/14/18 13:45 Requesting Physician : WIL Patient/Specimen Tests and Comments Specimen Comments FINAL REPORT: No Growth at 5 Days Tech : Source : BLOOD ID # : [id number] FINAL Report Date : / / : Collected : 01/14/18 13:45 01/18/18.1651.BKO. 01/18/18.BKO.COMPLETE Performed By: #### [id number] #### [place] [id number] CHEST 1 VIEW Observed: 01/14/2018 Status: F Source: [facility] 1:38 PM [place] [address] Patient: SANDY BRAVO Phone#: : 1965 Age: 52 Gender: F Pt. Type: ER Account: [id number] Location: [facility] Ordering: KADE DE LA TORRE Exam Date: 01/14/2018/13:30 Family Phys: MALDONADO DENNY Charge Code: [id number] Physician: Yancey Order #: [id number] DLP Dose#: PROCEDURE: X-RAY CHEST 1 VIEW COMPARISON: None. INDICATIONS: Shortness of breath FINDINGS: Image obtained in apical lordotic position, somewhat limiting the evaluation. Poor inspiratory effort also limits evaluation. LUNGS: Normal. No significant pulmonary parenchymal abnormalities. VASCULATURE: There is mild increased pulmonary vascularity. CARDIAC: Cardiomegaly. MEDIASTINUM: Normal. No visible mass or adenopathy. PLEURA: Normal. No effusion or pleural thickening. BONES: Normal. No fracture or visible bony lesion. OTHER: Surgical clips are present in the right upper quadrant. CONCLUSION: 1. Cardiomegaly and increased pulmonary vascularity, correlate for CHF. Dictated by: Amanda Wolf MD on 01/14/2018 at 20:47 Approved by: Amanda Wolf MD on 01/14/2018 at 20:47 CT BRAIN W/O CONTRAST Observed: 01/14/2018 Status: F Source: [facility] 1:35 PM [place] [address] Patient: SANDY BRAVO Phone#: : 1965 Age: 52 Gender: F Pt. Type: ER Account: [id number] Location: [facility] Ordering: KADE DE LA TORRE Exam Date: 01/14/2018/13:29 Family Phys: MALDONADO DENNY Charge Code: [id number] Physician: Yancey Order #: [id number] DLP Dose#: PROCEDURE: CT BRAIN WITHOUT CONTRAST COMPARISON: None. INDICATIONS: Dizziness TECHNIQUE: CT images were obtained without contrast material. All CT scans at this facility use dose modulation, iterative reconstruction, and/or weight based dosing when appropriate to reduce radiation dose to as low as reasonably achievable. IV CONTRAST: No IV contrast used,0ml TOTAL DOSE: 57.50 CTDIvol(mGy) FINDINGS: CEREBRUM: Age-appropriate atrophy is present, without visible acute hemorrhage or lesion. CEREBELLUM: No edema, hemorrhage, mass, acute infarction, or inappropriate atrophy. BRAINSTEM: No edema, hemorrhage, mass, acute infarction, or inappropriate atrophy. CSF SPACES: Ventricles, cisterns, and sulci are appropriate for age. No hydrocephalus, subarachnoid hemorrhage, or mass. SKULL: No mass or other significant visible lesion. SINUSES: Limited views demonstrate no significant mucosal thickening or fluid. ORBITS: Limited views are unremarkable. OTHER: Negative. CONCLUSION: No acute disease. Dictated by: Masha Richardson MD on 01/14/2018 at 23:45 Approved by: Masha Richardson MD on 01/14/2018 at 23:45 CNOV Observed: 01/09/2018 Status: COMPLETED Source: [place] 10:[address] [facility] REPOSITORY Office Visit (INTMWS) SANDY BRAVO ([id number]) 1965 F Date Time Provider Department 01/09/18 10:00 AM OLDERIFEOMA (MICHEL) INTMWS During your visit today, we recorded the following information about you: Temperature Pulse Blood pressure Weight 97.7 degrees 64/minute 120/70 76.1 kg Older Ifeoma (Michel) 01/09/2018 11:06 AM Signed CC: Patient presents with: Electrolyte Balance Disturbance High Blood Sugar HPI Sandy Bravo is a 52 year old female who presents today for elevated blood sugars and electrolyte imbalance. Patient was supposed to have cataract surgery but it was canceled due to this. DIABETES MELLITUS: Blood sugars have been higher than usual. Excessive thirst, urinary frequency, numbness, tingling or pain in extremities, new or unusual visual symptoms, low sugar/hypoglycemic reactions, weight loss/gain or fatigue: Yes fatigue, labile blood sugars and increased thirst over the past two weeks. Symptomatic with low blood sugars, get shaky and sweaty. Treats with large amount of sugary foods such as ice cream. No changes in diet She is compliant with medication(s) and is tolerating med(s) without any side effects. She reports checking her glucose on a 4 times a day schedule. Sugars are anywhere from 60 to high 300's. Patient's last HgA1C was Hemoglobin A1C (%) Date Value 10/16/2017 7.8 01/28/2017 8.5 ) DATE 01/09 01/08 01/07 01/06 Fasting 234 373 227 237 Post Meal #1 Before Meal 385 300 Post Meal # 2 Before Meal 59 88 213 Post Meal # 3 Bedtime 372 169 137 Other DATE 01/05 01/04 01/03 01/02 Fasting 370 395 136 297 Post Meal #1 Before Meal 60 91 Post Meal # 2 Before Meal 301 72 330 Post Meal # 3 Bedtime Other CKD stage 4: Worsening renal function. Patient will be starting dialysis, has appointment with sustainable design consultant next . Reports swelling in hands and lower extremities, occasional SOB when laying flat and decreased urine output for two weeks. States she only urinates very small amounts twice a day, urine is usually tea colored. Denies dysuria, urgency, hesitancy, nocturia. Positive for weight gain of 10 labs over the past months REVIEW OF SYSTEMS General: no fevers, no chills, no night sweats and Respiratory: no cough, no wheezing Cardiovascular: no chest pain, no chest pressure, no palpitations, no PND and no decrease in exercise tolerance PAST MEDICAL HISTORY Diagnosis Date - Calculus of ureter 06/12/2007 - CKD (chronic kidney disease) stage 3, GFR 30-59 ml/min 07/17/2013 - Depression 09/04/2006 - HTN (hypertension) 09/04/2001 - Hyperlipidemia 09/04/1999 - Proteinuria 06/14/2013 - Renal colic 06/12/2007 - Type II or unspecified type diabetes mellitus without mention of complication, not stated as uncontrolled 09/04/1985 PAST SURGICAL HISTORY Procedure Laterality Date - APPENDECTOMY 1992 - AV FISTULA OR GRAFT VENOUS Left 10/04/2017 - COLOSTOMY [id number] reversed 2006 - EXPLORATORY OF ABDOMEN 2006 Laparotomy, exp - REDUCTION OF LARGE BREAST 1989 - REMOVAL GALLBLADDER 1984 Cholecystectomy - SALPINGECTOMY OR OOPHERECTOMY-ECTOPIC 1985 - SLING OPER STRES INCONTINENCE 1998 - TOTAL ABDOM HYSTERECTOMY 1991 Hysterectomy, RUSSELL ALLERGIES Codeine; Latex; Penicillins MEDICATIONS cloNIDine HCl (CATAPRES) 0.2 mg tablet Take 0.2 mg by mouth twice daily. amLODIPine (NORVASC) 5 mg tablet Take 5 mg by mouth once daily. metoprolol tartrate, short acting, (LOPRESSOR) 50 mg tablet Take 1 tablet by mouth twice daily. FLUoxetine HCl (PROZAC) 40 mg capsule Take 1 capsule by mouth once daily. atorvastatin (LIPITOR) 40 mg tablet Take 1 tablet by mouth daily at bedtime. insulin aspart (NOVOLOG) 100 unit/mL soln Inject eight (8) units three times a day with meals insulin glargine (LANTUS) 100 unit/mL injection Inject 50 Units subcutaneously daily at bedtime. Via Syringe levothyroxine (SYNTHROID) 112 mcg tablet TAKE ONE TABLET BY MOUTH ONCE DAILY. TAKE ON EMPTY stomach. FOR thyroid. blood sugar diagnostic (BLOOD GLUCOSE TEST) test strip Test blood sugar(s) 3 times daily. Dx: Type 2 DM - Uncontrolled E11.65 Insulin: Yes Blood-Glucose Meter (BLOOD GLUCOSE MONITORING) monitoring kit 1 Each three times daily. E11.65. On insulin. terbinafine HCl (LAMISIL AT) 1 % cream Apply 1 application to affected area twice daily. Both feet and toes. Insulin Syringe-Needle U-100 (BD INSULIN SYRINGE ULTRA-FINE) 1 mL 29 gauge x 1/2 syrg Use twice daily as directed. aspirin, enteric coated (ECOTRIN LOW STRENGTH) 81 mg EC tablet Take 1 tablet by mouth once daily. multivitamin (DAILY MULTIVITAMIN) ORAL Tab Take one(1) tablet daily. FAMILY HISTORY Problem Relation Age of Onset - Diabetes Mother - Diabetes Sister 2 sisters DM2 - Diabetes Brother DM2 - Colon Cancer Father at age 52 - Cancer Brother lung cancer - Coronary Artery Disease Mother - COPD Mother dec. age 79 - Cancer Mother lung cancer - Coronary Artery Disease Brother dec. [place] 57 y.o. Social History Substance Use Topics - Smoking status: Former Smoker Packs/day: 1.50 Years: 3.00 Types: Cigarettes Quit date: 09/04/2005 - Smokeless tobacco: Never Used Comment: quit march 10 - Alcohol use No PHYSICAL EXAM BP 120/70 Pulse 64 Temp 36.5 ?C (97.7 ?F) (Temporal Artery) Wt 76.1 kg (167 lb 12.8 oz) SpO2 100% BMI 30.20 kg/m? General Appearance: in no acute distress, alert, appears fatigued Skin: Skin color, texture, turgor normal for age; Eyes: conjunctiva pink and moist, no icterus, sclera white, non-injected Oropharynx: moist Lungs: Lungs clear to auscultation. No wheezing, rhonchi, rales Heart: RRR without murmur, gallop, or rubs. No ectopy Extremities: Bilateral hands puffy. 2+ pitting edema to bilateral lower legs from mid mijares to feet. No skin discoloration, clubbing or cyanosis. Good capillary refill. , Pulses: 2+ Component Latest Ref Rng AND Units 10/16/2017 01/09/2018 Glucose 74 - 99 mg/dL 100 (H) BUN 7 - 21 mg/dL 51 (H) Creatinine 0.58 - 0.96 mg/dL 3.83 (H) Sodium 136 - 144 mmol/L 140 Potassium 3.7 - 5.1 mmol/L 4.8 Chloride 97 - 105 mmol/L 103 CO2 22 - 30 mmol/L 24 Anion Gap 9 - 18 mmol/L 13 Calcium 8.5 - 10.2 mg/dL 8.6 eGFR- 15 11 eGFR-All Other Races . 12 9 Sodium, Whole Blood (iSTAT) 132 - 148 mmol/L 142 Potassium, Whole Blood (iSTAT) 3.5 - 5.0 mmol/L 4.6 Chloride, Whole Blood (iSTAT) 98 - 110 mmol/L 109 Ionized Calcium, WB (iSTAT) 1.08 - 1.30 mmol/L 1.11 TCO2, Whole Blood (iSTAT) 23 - 32 mmol/L 23 Glucose, Whole Blood (iSTAT) 65 - 100 mg/dL 96 BUN, Whole Blood (iSTAT) 8 - 25 mg/dL 57 (H) Creatinine, Whole Blood (iSTAT) 0.70 - 1.40 mg/dL 4.80 (H) Anion Gap, Whole Blood (iSTAT) 0 - 15 mmol/L 10 ASSESSMENT/PLAN: 1. 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 Discussed with clinical pharmacist, recommendations: - Continue Novolog at same dose. Change Lantus to Toujeo for longer coverage - Blood glucose monitoring on a 5 times a day schedule: fasting am, before lunch and supper, 2 hours after lunch and bedtime - Patient already scheduled with clinical pharmacist in one month. Will call her to move appointment up - Follow up in 1 month with PCP as scheduled, sooner should any other issues arise. No surgery until blood sugars under better control and sustainable design consultant's okay 2. Chronic kidney disease, stage 4, severely decreased GFR (HCC) - ICD9: 585.4, ICD10: N18.4 Worsening renal function, edema and decreased urine output Potassium normal, no immediate intervention needed at this time. Follow-up with sustainable design consultant as scheduled next week. Will fax office notes to his office 3. Peripheral edema - ICD9: 782.3, ICD10: R60.9 As above 4. Decreased urine output - ICD9: 788.5, ICD10: R34 As above Prescription instructions reviewed with patient as applicable. Potential red flag symptoms discussed with the patient. Reviewed appropriate action plan to take if red flag symptoms occur. Patient agreeable to treatment plan. Ifeoma Schneider APRN.Ifeoma Britt (Flight Test Supervisor) 01/09/2018 10:31 AM Addendum Check blood sugars at the same times except start checking 2 hours after lunch as well Call Pennie the clinical pharmacist to schedule appointment sooner No cataract surgery until you see the kidney doctor Go to ER for worsening swelling and/or shortness of breath Referring Provider: MALDONADO DENNY [[id number]] Allergies As of Date: 01/09/2018 Noted Allergy Reaction CODEINE 12/11/2006 8 - GI Upset LATEX 03/22/2012 4 - Hives Comments: 2006 had reaction after surgery PENICILLINS 12/11/2006 7 - Swelling Date Reviewed: 01/09/2018 Reviewed by: Dahlia Pham Cma N - Fully Assessed Reason for Visit: Electrolyte Balance Disturbance [642] High Blood Sugar [212] Primary Visit Diagnosis: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 METOPROLOL TARTRATE 50 MG TAB* Take 1 tablet by mouth twice * FLUOXETINE 40 MG CAPSULE Take 1 capsule by mouth once * ATORVASTATIN 40 MG TABLET Take 1 tablet by mouth daily * INSULIN ASPART U-100 100 UNI* Inject eight (8) units three * LEVOTHYROXINE 112 MCG TABLET TAKE ONE TABLET BY MOUTH ONCE* BLOOD SUGAR DIAGNOSTIC STRIPS Test blood sugar(s) 3 times d* BLOOD-GLUCOSE METER KIT 1 Each three times daily. E11* TERBINAFINE HCL 1 % TOPICAL C* Apply 1 application to affect* INSULIN SYRINGE-NEEDLE U-100 * Use twice daily as directed. * ASPIRIN 81 MG TABLET,DELAYED * Take 1 tablet by mouth once d* * DAILY MULTIVITAMIN TABLET Take one(1) tablet daily. INSULIN GLARGINE (U-300) 300 * Inject 50 Units subcutaneousl* Problem List As Of Date 01/09/2018 Noted Resolved Calculus of ureter [N20.1] INVALID FOR*03/22/2012 Urinary tract infection, site not specified [N3*INVALID FOR*03/22/2012 Renal colic [N23] INVALID FOR*03/22/2012 Uncontrolled type 2 diabetes mellitus with prot*INVALID FOR* HTN (hypertension) [I10] INVALID FOR* Hyperlipidemia [E78.5] INVALID FOR* Depression [F32.9] INVALID FOR* Hypothyroid [E03.9] INVALID FOR* ASCVD (arteriosclerotic cardiovascular disease)*INVALID FOR* Proteinuria [R80.9] INVALID FOR* CKD (chronic kidney disease) stage 3, GFR 30-59*INVALID FOR*05/02/2017 CKD (chronic kidney disease) stage 4, GFR 15-29*INVALID FOR* More... Other instructions from your clinician: Check blood sugars at the same times except start checking 2 hours after lunch as well Call Pennie the clinical pharmacist to schedule appointment sooner No cataract surgery until you see the kidney doctor Go to ER for worsening swelling and/or shortness of breath Prescriptions ordered this encounter Disp Refills Start End INSULIN GLARGINE (U-300) 300 UNIT/ML* 6 Pen 1 01/09/2018 Route: SUBCUTANEOUS Sig: Inject 50 Units subcutaneously daily at bedtime. Medications Discontinued During This Encounter insulin glargine (LANTUS) 100 unit/m* 2 Vi* 5 10/18/2017 01/09/2018 Route: SUBCUTANEOUS Sig: Inject 50 Units subcutaneously daily at bedtime. Via Syringe Disc: Changing Therapy/Dosage Form Encounter Status:Closed by IFEOMA SCHNEIDER CNP on 01/09/18 PROGRESS Observed: 01/09/2018 Status: COMPLETED Source: [place] 9:[address] [facility] REPOSITORY HNO ID: [id number] Author: Ifeoma Schneider (Michel) Service: (none) Author Type: Nurse Practitioner Type: Progress Notes Filed: 01/09/2018 11:06 AM Note Text: CC: Patient presents with: Electrolyte Balance Disturbance High Blood Sugar HPI Sandy Bravo is a 52 year old female who presents today for elevated blood sugars and electrolyte imbalance. Patient was supposed to have cataract surgery but it was canceled due to this. DIABETES MELLITUS: Blood sugars have been higher than usual. Excessive thirst, urinary frequency, numbness, tingling or pain in extremities, new or unusual visual symptoms, low sugar/hypoglycemic reactions, weight loss/gain or fatigue: Yes fatigue, labile blood sugars and increased thirst over the past two weeks. Symptomatic with low blood sugars, get shaky and sweaty. Treats with large amount of sugary foods such as ice cream. No changes in diet She is compliant with medication(s) and is tolerating med(s) without any side effects. She reports checking her glucose on a 4 times a day schedule. Sugars are anywhere from 60 to high 300's. Patient's last HgA1C was Hemoglobin A1C (%) Date Value 10/16/2017 7.8 01/28/2017 8.5 ) DATE 01/09 01/08 01/07 01/06 Fasting 234 373 227 237 Post Meal #1 Before Meal 385 300 Post Meal # 2 Before Meal 59 88 213 Post Meal # 3 Bedtime 372 169 137 Other DATE 01/05 01/04 01/03 01/02 Fasting 370 395 136 297 Post Meal #1 Before Meal 60 91 Post Meal # 2 Before Meal 301 72 330 Post Meal # 3 Bedtime Other CKD stage 4: Worsening renal function. Patient will be starting dialysis, has appointment with sustainable design consultant next . Reports swelling in hands and lower extremities, occasional SOB when laying flat and decreased urine output for two weeks. States she only urinates very small amounts twice a day, urine is usually tea colored. Denies dysuria, urgency, hesitancy, nocturia. Positive for weight gain of 10 labs over the past months REVIEW OF SYSTEMS General: no fevers, no chills, no night sweats and Respiratory: no cough, no wheezing Cardiovascular: no chest pain, no chest pressure, no palpitations, no PND and no decrease in exercise tolerance PAST MEDICAL HISTORY Diagnosis Date - Calculus of ureter 06/12/2007 - CKD (chronic kidney disease) stage 3, GFR 30-59 ml/min 07/17/2013 - Depression 09/04/2006 - HTN (hypertension) 09/04/2001 - Hyperlipidemia 09/04/1999 - Proteinuria 06/14/2013 - Renal colic 06/12/2007 - Type II or unspecified type diabetes mellitus without mention of complication, not stated as uncontrolled 09/04/1985 PAST SURGICAL HISTORY Procedure Laterality Date - APPENDECTOMY 1992 - AV FISTULA OR GRAFT VENOUS Left 10/04/2017 - COLOSTOMY [id number] reversed 2006 - EXPLORATORY OF ABDOMEN 2005 Laparotomy, exp - REDUCTION OF LARGE BREAST 1989 - REMOVAL GALLBLADDER 1984 Cholecystectomy - SALPINGECTOMY OR OOPHERECTOMY-ECTOPIC 1985 - SLING OPER STRES INCONTINENCE 1998 - TOTAL ABDOM HYSTERECTOMY 1990 Hysterectomy, RUSSELL ALLERGIES Codeine; Latex; Penicillins MEDICATIONS cloNIDine HCl (CATAPRES) 0.2 mg tablet Take 0.2 mg by mouth twice daily. amLODIPine (NORVASC) 5 mg tablet Take 5 mg by mouth once daily. metoprolol tartrate, short acting, (LOPRESSOR) 50 mg tablet Take 1 tablet by mouth twice daily. FLUoxetine HCl (PROZAC) 40 mg capsule Take 1 capsule by mouth once daily. atorvastatin (LIPITOR) 40 mg tablet Take 1 tablet by mouth daily at bedtime. insulin aspart (NOVOLOG) 100 unit/mL soln Inject eight (8) units three times a day with meals insulin glargine (LANTUS) 100 unit/mL injection Inject 50 Units subcutaneously daily at bedtime. Via Syringe levothyroxine (SYNTHROID) 112 mcg tablet TAKE ONE TABLET BY MOUTH ONCE DAILY. TAKE ON EMPTY stomach. FOR thyroid. blood sugar diagnostic (BLOOD GLUCOSE TEST) test strip Test blood sugar(s) 3 times daily. Dx: Type 2 DM - Uncontrolled E11.65 Insulin: Yes Blood-Glucose Meter (BLOOD GLUCOSE MONITORING) monitoring kit 1 Each three times daily. E11.65. On insulin. terbinafine HCl (LAMISIL AT) 1 % cream Apply 1 application to affected area twice daily. Both feet and toes. Insulin Syringe-Needle U-100 (BD INSULIN SYRINGE ULTRA-FINE) 1 mL 29 gauge x 1/2 syrg Use twice daily as directed. aspirin, enteric coated (ECOTRIN LOW STRENGTH) 81 mg EC tablet Take 1 tablet by mouth once daily. multivitamin (DAILY MULTIVITAMIN) ORAL Tab Take one(1) tablet daily. FAMILY HISTORY Problem Relation Age of Onset - Diabetes Mother - Diabetes Sister 2 sisters DM2 - Diabetes Brother DM2 - Colon Cancer Father at age 52 - Cancer Brother lung cancer - Coronary Artery Disease Mother - COPD Mother dec. age 79 - Cancer Mother lung cancer - Coronary Artery Disease Brother dec. [place] 57 y.o. Social History Substance Use Topics - Smoking status: Former Smoker Packs/day: 1.50 Years: 3.00 Types: Cigarettes Quit date: 09/04/2005 - Smokeless tobacco: Never Used Comment: quit march 10 - Alcohol use No PHYSICAL EXAM BP 120/70 Pulse 64 Temp 36.5 ?C (97.7 ?F) (Temporal Artery) Wt 76.1 kg (167 lb 12.8 oz) SpO2 100% BMI 30.20 kg/m? General Appearance: in no acute distress, alert, appears fatigued Skin: Skin color, texture, turgor normal for age; Eyes: conjunctiva pink and moist, no icterus, sclera white, non-injected Oropharynx: moist Lungs: Lungs clear to auscultation. No wheezing, rhonchi, rales Heart: RRR without murmur, gallop, or rubs. No ectopy Extremities: Bilateral hands puffy. 2+ pitting edema to bilateral lower legs from mid mijares to feet. No skin discoloration, clubbing or cyanosis. Good capillary refill. , Pulses: 2+ Component Latest Ref Rng AND Units 10/16/2017 01/09/2018 Glucose 74 - 99 mg/dL 100 (H) BUN 7 - 21 mg/dL 51 (H) Creatinine 0.58 - 0.96 mg/dL 3.83 (H) Sodium 136 - 144 mmol/L 140 Potassium 3.7 - 5.1 mmol/L 4.8 Chloride 97 - 105 mmol/L 103 CO2 22 - 30 mmol/L 24 Anion Gap 9 - 18 mmol/L 13 Calcium 8.5 - 10.2 mg/dL 8.6 eGFR- 15 11 eGFR-All Other Races . 12 9 Sodium, Whole Blood (iSTAT) 132 - 148 mmol/L 142 Potassium, Whole Blood (iSTAT) 3.5 - 5.0 mmol/L 4.6 Chloride, Whole Blood (iSTAT) 98 - 110 mmol/L 109 Ionized Calcium, WB (iSTAT) 1.08 - 1.30 mmol/L 1.11 TCO2, Whole Blood (iSTAT) 23 - 32 mmol/L 23 Glucose, Whole Blood (iSTAT) 65 - 100 mg/dL 96 BUN, Whole Blood (iSTAT) 8 - 25 mg/dL 57 (H) Creatinine, Whole Blood (iSTAT) 0.70 - 1.40 mg/dL 4.80 (H) Anion Gap, Whole Blood (iSTAT) 0 - 15 mmol/L 10 ASSESSMENT/PLAN: 1. 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 Discussed with clinical pharmacist, recommendations: - Continue Novolog at same dose. Change Lantus to Toujeo for longer coverage - Blood glucose monitoring on a 5 times a day schedule: fasting am, before lunch and supper, 2 hours after lunch and bedtime - Patient already scheduled with clinical pharmacist in one month. Will call her to move appointment up - Follow up in 1 month with PCP as scheduled, sooner should any other issues arise. No surgery until blood sugars under better control and sustainable design consultant's okay 2. Chronic kidney disease, stage 4, severely decreased GFR (HCC) - ICD9: 585.4, ICD10: N18.4 Worsening renal function, edema and decreased urine output Potassium normal, no immediate intervention needed at this time. Follow-up with sustainable design consultant as scheduled next week. Will fax office notes to his office 3. Peripheral edema - ICD9: 782.3, ICD10: R60.9 As above 4. Decreased urine output - ICD9: 788.5, ICD10: R34 As above Prescription instructions reviewed with patient as applicable. Potential red flag symptoms discussed with the patient. Reviewed appropriate action plan to take if red flag symptoms occur. Patient agreeable to treatment plan. Ifeoma Schneider APRN.MICHEL MOSS BMP Collected: 01/09/2018 Status: F Source: [place] 9:[facility] TYPE CODE TESTS RESULT OUT OF REFERENCE UNITS RANGE LAB NAWB 132-148 mmol/L Sodium, Whole 142 Bld LAB K1WB 3.5-5.0 mmol/L Potassium,Who 4.6 le Bld LAB CLWB 98-110 mmol/L Chloride, 109 Whole Bld LAB ICAWB 1.08-1.30 mmol/L Ionized 1.11 Calcium, WB Result Comment: Please note: This value represents ionized calcium not total calcium. LAB CO2WB 23-32 mmol/L TCO2, Whole Blood 23 LAB GLUWB 65-100 mg/dL Glucose, Whole Bld 96 LAB BUNWB 8-25 mg/dL High BUN, Whole Blood 57 LAB BCRET 0.70-1.40 mg/dL High Creatinine,Wh ole Bld 4.80 LAB AGAPWB 0-15 mmol/L Anion Gap, Whole Bld 10 LAB GFRAA eGFR- Amer. 11 LAB GFRNAA . eGFR-All 9 Other Races Result Comment: eGFR (Estimated GFR) Units of measure: mL/min/1.73 meters squared eGFR is derived from the reexpressed MDRD Study equation using the following parameters: serum creatinine, age, gender and race. The creatinine assay has been calibrated to be traceable to IDMS. An eGFR <60 mL/min/1.73m2 for >3 months is consistent with chronic kidney disease. Refer to KDOQI guidelines for clinical interpretation. In patients with unstable renal function, e.g. those with acute kidney injury, the eGFR may not accurately reflect actual GFR. .GFR Collected: 01/08/2018 Status: F Source: [facility] [employer] [facility] 7:50 AM [facility] REPOSITORY TYPE CODE TESTS RESULT OUT OF REFERENCE UNITS RANGE LAB GFRAA(LOINC ml/min/1.73 ) sqm GFR 12 Vietnamese Result Comment: GFR Population mean for , Non- Americans Ages 20-29 = 116 mL/min/1.73 sq.m. Ages 30-39 = 107 mL/min/1.73 sq.m. Ages 40-49 = 99 mL/min/1.73 sq.m. Ages 50-59 = 93 mL/min/1.73 sq.m. Ages 60-69 = 85 mL/min/1.73 sq.m. Ages 70+ = 75 mL/min/1.73 sq.m. Chronic Kidney Disease: Less than 60 mL/min/1.73 square meters End Stage Renal Disease: Less than 15 mL/min/1.73 square meters LAB GFRNO(LOINC) ml/min/1.73sqm GFR Non- 10 Result Comment: GFR Population mean for , Non- Americans Ages 20-29 = 116 mL/min/1.73 sq.m. Ages 30-39 = 107 mL/min/1.73 sq.m. Ages 40-49 = 99 mL/min/1.73 sq.m. Ages 50-59 = 93 mL/min/1.73 sq.m. Ages 60-69 = 85 mL/min/1.73 sq.m. Ages 70+ = 75 mL/min/1.73 sq.m. Chronic Kidney Disease: Less than 60 mL/min/1.73 square meters End Stage Renal Disease: Less than 15 mL/min/1.73 square meters Performed By: #### GFR, BMP #### [address] [address] BMP Collected: 01/08/2018 Status: F Source: [facility] 7:50 AM [facility] REPOSITORY TYPE CODE TESTS RESULT OUT OF RANGE REFERENCE UNITS LAB GLU(LOINC) 70-110 mg/dL Glucose Abnormal Level 420 Alert LAB NA(LOINC) 136-145 mEq/L Sodium Level 140 LAB K(LOINC) 3.5-5.0 mEq/L High Potassium Level 5.3 LAB CL(LOINC) 98-110 mEq/L Chloride 110 LAB CO2(LOINC) 22-32 mEq/L CO2 22 LAB EBAL(LOINC 4.0-15.0 mEq/L ) Electrolyte Balance 8.0 LAB BUN(LOINC) 8.0-22.0 mg/dL High BUN 64.0 LAB CRE(LOINC) 0.50-1.20 mg/dL High Creatinine Lvl (s) 4.67 LAB BC(LOINC) 10.0-22.0 ratio BUN/Creatinine 13.7 Ratio LAB CA(LOINC) 8.4-10.1 mg/dL Low Calcium Lvl 7.8 Performed By: #### GFR, BMP #### [address] [address] PROGRESS Observed: 12/27/2017 Status: COMPLETED Source: [place] 2:[address] [facility] REPOSITORY HNO ID: [id number] Author: Ifeoma (Michel) Older Service: (none) Author Type: Nurse Practitioner Type: Progress Notes Filed: 12/28/2017 7:05 AM Note Text: CC: Patient presents with: PRE OP CLEARANCE HPI Sandy Bravo is a 52 year old female who presents today for pre-op evaluation. Surgical Procedure: phacoemulsification of cataract with intraocular lens implant Date of Procedure: 01/08 left eye 01/22 right eye 1. Diabetes: Insulin 2. Hypertension requiring medication: Yes 3. Congestive Heart Failure: No 4. Current Smoker within 1 Year: No 5. History of COPD: No 6. History of WALE: No 7. Dialysis: Yes REVIEW OF SYSTEMS General: no fevers, no chills, no night sweats, no recurrent infections, no change in appetite, no change in energy and no significant changes in weight Neck: no lumps, no pain and no swelling Respiratory: no cough, no wheezing, no shortness of breath, no hemoptysis Cardiovascular: no chest pain, no chest pressure, no palpitations and no swelling GI: Negative for abdominal discomfort, blood in stools or black stools, change in bowel habit, heart burn, nausea, vomiting : No dysuria, urgency, frequency, hesitancy, incontinence, decrease in output Skin: No rashes or lesions Musculoskeletal: No muscle or joint pain, no back pain Psych: Positive for depression. Denies anxiety or insomnia. PAST MEDICAL HISTORY Diagnosis Date - Calculus of ureter 06/12/2007 - CKD (chronic kidney disease) stage 3, GFR 30-59 ml/min 07/17/2013 - Depression 09/04/2006 - HTN (hypertension) 09/04/2001 - Hyperlipidemia 09/04/1999 - Proteinuria 06/14/2013 - Renal colic 06/12/2007 - Type II or unspecified type diabetes mellitus without mention of complication, not stated as uncontrolled 09/04/1985 PAST SURGICAL HISTORY Procedure Laterality Date - APPENDECTOMY 1992 - AV FISTULA OR GRAFT VENOUS Left 10/04/2017 - COLOSTOMY [id number] reversed 2006 - EXPLORATORY OF ABDOMEN 2006 Laparotomy, exp - REDUCTION OF LARGE BREAST 1989 - REMOVAL GALLBLADDER 1984 Cholecystectomy - SALPINGECTOMY OR OOPHERECTOMY-ECTOPIC 1985 - SLING OPER STRES INCONTINENCE 1998 - TOTAL ABDOM HYSTERECTOMY 1991 Hysterectomy, RUSSELL ALLERGIES Codeine; Latex; Penicillins MEDICATIONS cloNIDine HCl (CATAPRES) 0.2 mg tablet Take 0.2 mg by mouth twice daily. amLODIPine (NORVASC) 5 mg tablet Take 5 mg by mouth once daily. metoprolol tartrate, short acting, (LOPRESSOR) 50 mg tablet Take 1 tablet by mouth twice daily. FLUoxetine HCl (PROZAC) 40 mg capsule Take 1 capsule by mouth once daily. atorvastatin (LIPITOR) 40 mg tablet Take 1 tablet by mouth daily at bedtime. insulin aspart (NOVOLOG) 100 unit/mL soln Inject eight (8) units three times a day with meals insulin glargine (LANTUS) 100 unit/mL injection Inject 50 Units subcutaneously daily at bedtime. Via Syringe levothyroxine (SYNTHROID) 112 mcg tablet TAKE ONE TABLET BY MOUTH ONCE DAILY. TAKE ON EMPTY stomach. FOR thyroid. Blood-Glucose Meter (BLOOD GLUCOSE MONITORING) monitoring kit 1 Each three times daily. E11.65. On insulin. Insulin Syringe-Needle U-100 (BD INSULIN SYRINGE ULTRA-FINE) 1 mL 29 gauge x 1/2 syrg Use twice daily as directed. aspirin, enteric coated (ECOTRIN LOW STRENGTH) 81 mg EC tablet Take 1 tablet by mouth once daily. blood sugar diagnostic (BLOOD GLUCOSE TEST) test strip Test blood sugar(s) 3 times daily. Dx: Type 2 DM - Uncontrolled E11.65 Insulin: Yes terbinafine HCl (LAMISIL AT) 1 % cream Apply 1 application to affected area twice daily. Both feet and toes. multivitamin (DAILY MULTIVITAMIN) ORAL Tab Take one(1) tablet daily. FAMILY HISTORY Problem Relation Age of Onset - Diabetes Mother - Diabetes Sister 2 sisters DM2 - Diabetes Brother DM2 - Colon Cancer Father at age 52 - Cancer Brother lung cancer - Coronary Artery Disease Mother - COPD Mother dec. age 79 - Cancer Mother lung cancer - Coronary Artery Disease Brother dec. [place] 57 y.o. Social History Substance Use Topics - Smoking status: Former Smoker Packs/day: 1.50 Years: 3.00 Types: Cigarettes Quit date: 09/04/2005 - Smokeless tobacco: Never Used Comment: quit march 10 - Alcohol use No PHYSICAL EXAM BP 128/82 Pulse 64 Temp 36.2 ?C (97.2 ?F) (Temporal Artery) Resp 16 Wt 74.8 kg (165 lb) SpO2 96% BMI 29.7 kg/m2 General Appearance: well appearing, in no acute distress, alert Neck: Thyroid normal size and symmetric without palpable nodules, Neck supple, No adenopathy Oropharynx: lips normal without lesions, tongue midline and normal, soft palate, uvula, and tonsils normal Lungs: Lungs clear to auscultation. No wheezing, rhonchi, rales Heart: RRR without murmur, gallop, or rubs. No ectopy Abdomen: soft, nondistended, nontender, no hepatosplenomegaly or masses Extremities: No deformities, edema, skin discoloration, clubbing or cyanosis. Good capillary refill. Pulses: 2+. Fistula left lower arm + bruit/thrill Component Latest Ref Rng AND Units 10/16/2017 Glucose 74 - 99 mg/dL 100 (H) BUN 7 - 21 mg/dL 51 (H) Creatinine 0.58 - 0.96 mg/dL 3.83 (H) Sodium 136 - 144 mmol/L 140 Potassium 3.7 - 5.1 mmol/L 4.8 Chloride 97 - 105 mmol/L 103 CO2 22 - 30 mmol/L 24 Anion Gap 9 - 18 mmol/L 13 Calcium 8.5 - 10.2 mg/dL 8.6 eGFR- 15 eGFR-All Other Races . 12 WBC 3.70 - 11.00 k/uL 6.00 RBC 3.90 - 5.20 m/uL 4.06 Hemoglobin 11.5 - 15.5 g/dL 11.7 Hematocrit 36.0 - 46.0 % 36.0 MCV 80.0 - 100.0 fL 88.7 MCH 26.0 - 34.0 pG 28.8 MCHC 30.5 - 36.0 g/dL 32.5 RDW-CV 11.5 - 15.0 % 12.5 Platelet Count 150 - 400 k/uL 235 MPV 9.0 - 12.7 fL 9.1 Absolute nRBC <0.01 k/uL <0.01 Hemoglobin A1C 4.3 - 5.6 % 7.8 (H) Estimated Average Glucose mg/dL 177 Diagnoses/Plan 1. Pre-operative evaluation Recent labs completed in October. EKG or any other cardiac testing not indicated Patient has the following medical conditions which may affect corinna-operative course Diabetes - labile control Renal Failure - Chronic but stable, will start dialysis soon SANTAMARIA risk: Patient is scheduled for a low-risk procedure. Risk of 0.2% calculated using the NSQIP surgical risk calculator Hold ASA 5 days before surgery. Discussed medications to take day of surgery, see patient instructions The patient is medically stable for surgery Ifeoma Schneider APRN.CNP CNOV Observed: 12/27/2017 Status: COMPLETED Source: [place] 2:[address] [facility] REPOSITORY Office Visit (INTMWS) SANDY BRAVO ([id number]) 1965 F Date Time Provider Department 12/27/17 2:00 PM [facility] IFEOMA (MICHEL) INTMWS During your visit today, we recorded the following information about you: Temperature Pulse Respiration Blood pressure 97.2 degrees 64/minute 16/minute 128/82 Weight 74.8 kg Ifeoma Schneider APRN.CNP 12/28/2017 7:05 AM Signed CC: Patient presents with: PRE OP CLEARANCE HPI Sandy Bravo is a 52 year old female who presents today for pre-op evaluation. Surgical Procedure: phacoemulsification of cataract with intraocular lens implant Date of Procedure: 01/08 left eye 01/22 right eye 1. Diabetes: Insulin 2. Hypertension requiring medication: Yes 3. Congestive Heart Failure: No 4. Current Smoker within 1 Year: No 5. History of COPD: No 6. History of WALE: No 7. Dialysis: Yes REVIEW OF SYSTEMS General: no fevers, no chills, no night sweats, no recurrent infections, no change in appetite, no change in energy and no significant changes in weight Neck: no lumps, no pain and no swelling Respiratory: no cough, no wheezing, no shortness of breath, no hemoptysis Cardiovascular: no chest pain, no chest pressure, no palpitations and no swelling GI: Negative for abdominal discomfort, blood in stools or black stools, change in bowel habit, heart burn, nausea, vomiting : No dysuria, urgency, frequency, hesitancy, incontinence, decrease in output Skin: No rashes or lesions Musculoskeletal: No muscle or joint pain, no back pain Psych: Positive for depression. Denies anxiety or insomnia. PAST MEDICAL HISTORY Diagnosis Date - Calculus of ureter 06/12/2007 - CKD (chronic kidney disease) stage 3, GFR 30-59 ml/min 07/17/2013 - Depression 09/04/2006 - HTN (hypertension) 09/04/2001 - Hyperlipidemia 09/04/1999 - Proteinuria 06/14/2013 - Renal colic 06/12/2007 - Type II or unspecified type diabetes mellitus without mention of complication, not stated as uncontrolled 09/04/1985 PAST SURGICAL HISTORY Procedure Laterality Date - APPENDECTOMY 1992 - AV FISTULA OR GRAFT VENOUS Left 10/04/2017 - COLOSTOMY [id number] reversed 2006 - EXPLORATORY OF ABDOMEN 2005 Laparotomy, exp - REDUCTION OF LARGE BREAST 1989 - REMOVAL GALLBLADDER 1984 Cholecystectomy - SALPINGECTOMY OR OOPHERECTOMY-ECTOPIC 1985 - SLING OPER STRES INCONTINENCE 1998 - TOTAL ABDOM HYSTERECTOMY 1990 Hysterectomy, RUSSELL ALLERGIES Codeine; Latex; Penicillins MEDICATIONS cloNIDine HCl (CATAPRES) 0.2 mg tablet Take 0.2 mg by mouth twice daily. amLODIPine (NORVASC) 5 mg tablet Take 5 mg by mouth once daily. metoprolol tartrate, short acting, (LOPRESSOR) 50 mg tablet Take 1 tablet by mouth twice daily. FLUoxetine HCl (PROZAC) 40 mg capsule Take 1 capsule by mouth once daily. atorvastatin (LIPITOR) 40 mg tablet Take 1 tablet by mouth daily at bedtime. insulin aspart (NOVOLOG) 100 unit/mL soln Inject eight (8) units three times a day with meals insulin glargine (LANTUS) 100 unit/mL injection Inject 50 Units subcutaneously daily at bedtime. Via Syringe levothyroxine (SYNTHROID) 112 mcg tablet TAKE ONE TABLET BY MOUTH ONCE DAILY. TAKE ON EMPTY stomach. FOR thyroid. Blood-Glucose Meter (BLOOD GLUCOSE MONITORING) monitoring kit 1 Each three times daily. E11.65. On insulin. Insulin Syringe-Needle U-100 (BD INSULIN SYRINGE ULTRA-FINE) 1 mL 29 gauge x 1/2ANDquot; syrg Use twice daily as directed. aspirin, enteric coated (ECOTRIN LOW STRENGTH) 81 mg EC tablet Take 1 tablet by mouth once daily. blood sugar diagnostic (BLOOD GLUCOSE TEST) test strip Test blood sugar(s) 3 times daily. Dx: Type 2 DM - Uncontrolled E11.65 Insulin: Yes terbinafine HCl (LAMISIL AT) 1 % cream Apply 1 application to affected area twice daily. Both feet and toes. multivitamin (DAILY MULTIVITAMIN) ORAL Tab Take one(1) tablet daily. FAMILY HISTORY Problem Relation Age of Onset - Diabetes Mother - Diabetes Sister 2 sisters DM2 - Diabetes Brother DM2 - Colon Cancer Father at age 52 - Cancer Brother lung cancer - Coronary Artery Disease Mother - COPD Mother dec. age 79 - Cancer Mother lung cancer - Coronary Artery Disease Brother dec. [place] 57 y.o. Social History Substance Use Topics - Smoking status: Former Smoker Packs/day: 1.50 Years: 3.00 Types: Cigarettes Quit date: 09/04/2005 - Smokeless tobacco: Never Used Comment: quit march 10 - Alcohol use No PHYSICAL EXAM BP 128/82 Pulse 64 Temp 36.2 ?C (97.2 ?F) (Temporal Artery) Resp 16 Wt 74.8 kg (165 lb) SpO2 96% BMI 29.7 kg/m2 General Appearance: well appearing, in no acute distress, alert Neck: Thyroid normal size and symmetric without palpable nodules, Neck supple, No adenopathy Oropharynx: lips normal without lesions, tongue midline and normal, soft palate, uvula, and tonsils normal Lungs: Lungs clear to auscultation. No wheezing, rhonchi, rales Heart: RRR without murmur, gallop, or rubs. No ectopy Abdomen: soft, nondistended, nontender, no hepatosplenomegaly or masses Extremities: No deformities, edema, skin discoloration, clubbing or cyanosis. Good capillary refill. Pulses: 2+. Fistula left lower arm + bruit/thrill Component Latest Ref Rng ANDamp; Units 10/16/2017 Glucose 74 - 99 mg/dL 100 (H) BUN 7 - 21 mg/dL 51 (H) Creatinine 0.58 - 0.96 mg/dL 3.83 (H) Sodium 136 - 144 mmol/L 140 Potassium 3.7 - 5.1 mmol/L 4.8 Chloride 97 - 105 mmol/L 103 CO2 22 - 30 mmol/L 24 Anion Gap 9 - 18 mmol/L 13 Calcium 8.5 - 10.2 mg/dL 8.6 eGFR- 15 eGFR-All Other Races . 12 WBC 3.70 - 11.00 k/uL 6.00 RBC 3.90 - 5.20 m/uL 4.06 Hemoglobin 11.5 - 15.5 g/dL 11.7 Hematocrit 36.0 - 46.0 % 36.0 MCV 80.0 - 100.0 fL 88.7 MCH 26.0 - 34.0 pG 28.8 MCHC 30.5 - 36.0 g/dL 32.5 RDW-CV 11.5 - 15.0 % 12.5 Platelet Count 150 - 400 k/uL 235 MPV 9.0 - 12.7 fL 9.1 Absolute nRBC ANDlt;0.01 k/uL ANDlt;0.01 Hemoglobin A1C 4.3 - 5.6 % 7.8 (H) Estimated Average Glucose mg/dL 177 Diagnoses/Plan 1. Pre-operative evaluation Recent labs completed in October. EKG or any other cardiac testing not indicated Patient has the following medical conditions which may affect corinna-operative course Diabetes - labile control Renal Failure - Chronic but stable, will start dialysis soon SANTAMARIA risk: Patient is scheduled for a low-risk procedure. Risk of 0.2% calculated using the NSQIP surgical risk calculator Hold ASA 5 days before surgery. Discussed medications to take day of surgery, see patient instructions The patient is medically stable for surgery ДМИТРИЙ Negrete APRN.CNP 12/27/2017 2:29 PM Signed Okay to take routine medications the day of surgery with sips of water. Hold aspirin starting 5 days before surgery. Novolog: Take usual dose the day before surgery. Hold the day of surgery until you are eating Lantus: Take usual dose the day before and the day of surgery if you take at bedtime Referring Provider: ROE GIORDANO [[id number]] Allergies As of Date: 12/27/2017 Noted Allergy Reaction CODEINE 12/11/2006 8 - GI Upset LATEX 03/22/2012 4 - Hives Comments: 2006 had reaction after surgery PENICILLINS 12/11/2006 7 - Swelling Date Reviewed: 12/27/2017 Reviewed by: Dahlia Pham Transformer Shop Supervisor - Fully Assessed Reason for Visit: PRE OP CLEARANCE [Other] Primary Visit Diagnosis:Pre-operative examination for internal medicine [Z01.818] Prescriptions as of 12/27/2017 Sig: CLONIDINE HCL 0.2 MG TABLET Take 0.2 mg by mouth twice da* AMLODIPINE 5 MG TABLET Take 5 mg by mouth once daily. METOPROLOL TARTRATE 50 MG TAB* Take 1 tablet by mouth twice * FLUOXETINE 40 MG CAPSULE Take 1 capsule by mouth once * ATORVASTATIN 40 MG TABLET Take 1 tablet by mouth daily * INSULIN ASPART U-100 100 UNI* Inject eight (8) units three * INSULIN GLARGINE (U-100) 100 * Inject 50 Units subcutaneousl* LEVOTHYROXINE 112 MCG TABLET TAKE ONE TABLET BY MOUTH ONCE* BLOOD-GLUCOSE METER KIT 1 Each three times daily. E11* INSULIN SYRINGE-NEEDLE U-100 * Use twice daily as directed. * ASPIRIN 81 MG TABLET,DELAYED * Take 1 tablet by mouth once d* BLOOD SUGAR DIAGNOSTIC STRIPS Test blood sugar(s) 3 times d* TERBINAFINE HCL 1 % TOPICAL C* Apply 1 application to affect* * DAILY MULTIVITAMIN TABLET Take one(1) tablet daily. Problem List As Of Date 12/27/2017 Noted Resolved Calculus of ureter [N20.1] INVALID FOR*03/22/2012 Urinary tract infection, site not specified [N3*INVALID FOR*03/22/2012 Renal colic [N23] INVALID FOR*03/22/2012 Uncontrolled type 2 diabetes mellitus with prot*INVALID FOR* HTN (hypertension) [I10] INVALID FOR* Hyperlipidemia [E78.5] INVALID FOR* Depression [F32.9] INVALID FOR* Hypothyroid [E03.9] INVALID FOR* ASCVD (arteriosclerotic cardiovascular disease)*INVALID FOR* Proteinuria [R80.9] INVALID FOR* CKD (chronic kidney disease) stage 3, GFR 30-59*INVALID FOR*05/02/2017 CKD (chronic kidney disease) stage 4, GFR 15-29*INVALID FOR* More... Other instructions from your clinician: Okay to take routine medications the day of surgery with sips of water. Hold aspirin starting 5 days before surgery. Novolog: Take usual dose the day before surgery. Hold the day of surgery until you are eating Lantus: Take usual dose the day before and the day of surgery if you take at bedtime Encounter Status:Closed by IFEOMA SCHNEIDER CNP on 12/28/17 CBC Collected: 12/13/2017 Status: F Source: [facility] 8:39 AM [facility] REPOSITORY Order Comment: [place]: M TYPE CODE TESTS RESULT OUT OF RANGE REFERENCE UNITS LAB L200.67028 4.5-11.0 K/CU MM Normal WBC 6.8 LAB L200.35796 3.90-5.30 M/CU MM Low RBC 3.88 LAB L200.68308 11.5-15.5 G/DL Low HGB 10.9 LAB L200.87210 35.0-47.0 % Low HCT 33.7 LAB L200.07502 80.0-99.0 fl Normal MCV 86.9 LAB L200.50181 32.0-36.0 GM/DL Normal MCHC 32.3 LAB L200.53558 11-14.5 Normal RDW 13.2 LAB L200.94392 9.4-12.4 Low MPV 9.2 LAB L200.15201 150-450 K/CU MM Normal PLT 191 LAB L200.49450 Less than 1 % Normal NRBC 0.0 Performed By: #### L200.59294 #### [facility] [address] [place] [address] RENAL Collected: 12/13/2017 Status: F Source: [facility] 8:39 AM [facility] REPOSITORY Order Comment: [place]: TYPE CODE TESTS RESULT OUT OF RANGE REFERENCE UNITS LAB L500.15900 136-145 MMOL/L Normal NA 139 LAB L500.86700 3.5-5.1 MMOL/L High K 5.2 LAB L500.85253 98-107 MMOL/L High CL 109 LAB L500.20968 21-32 MMOL/L Normal CO2 21 LAB L500.13516 5-16 MMOL/L Normal AGAP 9 LAB L500.18167 70-100 MG/DL High GLU 327 Result Comment: 70-100- Normal Fasting; 100-125 Impaired Fasting; greater than 126 on more than one result- Diabetes. ADA guidelines. Results may be falsely elevated after the administration of Sulfapyridine. Results may be falsely depressed after the administration of Sulfasalazine. LAB L500.97610 7-26 MG/DL High BUN 44 LAB L500.25808 0.510-0.950 MG/DL High CREAT 3.970 Result Comment: Patients receiving either N-Acetylcysteine (NAC) or Metamizole prior to venipuncture, may have falsely depressed results. LAB L500.78094 15-24 Low BUN/CREA 11 LAB L500.61212 3.2-5.0 GM/DL Low ALBUMIN 3.0 LAB L500.92049 8.5-10.1 MG/DL Low CALCIUM TOTAL 8.1 LAB L500.15898 2.5-4.9 MG/DL Normal PHOS 4.9 Performed By: #### L500.16869, L500.71121 #### [facility] [address] [place] [address] # [phone] GFR EST Collected: 12/13/2017 Status: F Source: [facility] 8:39 AM [facility] REPOSITORY Order Comment: [place]: M TYPE CODE TESTS RESULT OUT OF RANGE REFERENCE UNITS LAB L500.67080 ML/MIN Normal IF non-AFR 12 AMER LAB L500.36167 ML/MIN Normal IF 14 AMER Performed By: #### L500.59661, L500.74317 #### [facility] [address] [place] [id number] # [phone] OR Observed: 12/13/2017 Status: UNK Source: [facility] 6:45 AM [facility] REPOSITORY DATE OF SERVICE: 12/13/2017 PREOPERATIVE DIAGNOSIS: Failing fistula, left upper extremity radiocephalic. POSTOPERATIVE DIAGNOSIS: Failing fistula, left upper extremity radiocephalic. OPERATION: 1. Ultrasound guided retrograde access, left radiocephalic AV fistula. 2. Ultrasound guided access to left brachial artery. 3. Arteriogram, left upper extremity. 4. Fistulogram, left upper extremity. 5. Angioplasty, proximal AV fistula, left, with 2 mm Bradford balloon x2. 6. Angioplasty, proximal AV fistula, with 4 mm x 4 cm Bradford balloon x3 and 4 mm x 2 cm Bradford balloon x3. 7. Angioplasty of left radial artery with 2.5 mm x 15 cm Bradford balloon x2. 8. Angioplasty of proximal anastomosis and distal radial artery, left, with 3 mm x 6 cm Bradford balloon. COMPLICATIONS: None. ANESTHESIA: IV sedation, monitored care by Dr. Bonilla, local anesthetic. FINDINGS: Subtotal occlusion, proximal AV fistula. Diminutive radial artery. Tight stenosis of the anastomosis and proximal fistula, successfully treated with antegrade and retrograde approach. PROCEDURE: Patient brought to the angiography suite where she was placed in supine position, placed on pulse oximeter and cardiac monitoring, given IV sedation, fentanyl and Versed. The left arm was prepped and draped in standard fashion. Ultrasound guidance to gain access to the fistula outflow tract in the left forearm and the cephalic vein. A 4-Kenyan sheath was placed. Fistulogram through an angled Erie catheter revealed the subtotal occlusion of the proximal fistula with almost a string-like residual lumen to the artery and anastomosis. I was able to get past this with an 0.014 Journey wire, systemically heparinized the patient. We angioplastied with the 2 mm balloon for a 2 minute inflation to gain some access and flow across the fistula but I could not get retrograde up the radial artery, despite a number of attempts with different wires, going from 0.014 to 0.035 system. At this point I gained access to the brachial artery with a single wire micropuncture technique and ultrasound guidance, exchanged out for an angled Glidewire and a 4-Kenyan sheath. Glidewire was placed down the radial artery and attempts were made at antegrade approach through the anastomosis retrograde. This was unsuccessful. The radial artery was quite diminutive. I supplemented heparinization during the case, angioplastied the radial artery with a 2.5 x 15 cm Bradford balloon to 12 atmospheres for 2, 2-minute inflations. This gave us better inflow. I then upsized from a retrograde approach from the fistula sheath to a 4 mm balloon, angioplastied [facility] PATIENT NAME: SANDY BRAVO [address] [facility] [address] MEDICAL REC #: [id number] [place] [address] ADMIT DATE: DISCHARGE DATE: OPERATIVE REPORT ATTENDING PHY: Héctor Bonilla MD the proximal area. We finally got good flow across this into the fistula, angioplastied a total of actually 4 or 5 times with a 4 x 4 and a 4 x 2 Bradford balloon. This gave us now flow, actually dramatic improvement. I was then able to go antegrade from the radial side through the anastomosis with an 0.018 Glidewire and then exchanged out for a V14 wire, and then angioplastied the proximal anastomosis and distal radial artery with a 3 mm x 6 cm Bradford balloon for 12 atmospheres, for 2 minute inflation. This gave us a beautiful result, dramatic improvement of flow with no signs of complicating factors. At this point we had salvaged the fistula. We will let it mature the residual area. Sheath was pulled. Pressure was held by hemostasis at the brachial artery as well as the pursestring suture in the fistula without incident. The patient tolerated the procedure well. Héctor Bonilla MD JUAN [id number] [facility] File#: [id number] Verified/Reviewed by 12/18/17 2320 PREJE [facility] PATIENT NAME: SANDY BRAVO [address] [facility] [address] [place] MEDICAL REC #: [id number] [place] [address] ADMIT DATE: DISCHARGE DATE: OPERATIVE REPORT ATTENDING PHY: Héctor Bonilla MD CBC Collected: 12/05/2017 Status: F Source: [facility] 11:29 AM [facility] REPOSITORY Order Comment: [place]: TYPE CODE TESTS RESULT OUT OF RANGE REFERENCE UNITS LAB L200.51941 4.5-11.0 K/CU MM Normal WBC 6.0 LAB L200.93940 3.90-5.30 M/CU MM Normal RBC 3.93 LAB L200.56972 11.5-15.5 G/DL Low HGB 10.8 LAB L200.08650 35.0-47.0 % Low HCT 34.0 LAB L200.77181 80.0-99.0 fl Normal MCV 86.5 LAB L200.82397 32.0-36.0 GM/DL Low MCHC 31.8 LAB L200.52610 11-14.5 Normal RDW 13.0 LAB L200.60753 9.4-12.4 Low MPV 9.3 LAB L200.71996 150-450 K/CU MM Normal PLT 184 LAB L200.03745 Less than 1 % Normal NRBC 0.3 Performed By: #### L200.72699 #### [facility] [address] [place] [address] RENAL Collected: 12/05/2017 Status: F Source: [facility] 11:29 AM [facility] REPOSITORY Order Comment: [place]: TYPE CODE TESTS RESULT OUT OF RANGE REFERENCE UNITS LAB L500.45106 136-145 MMOL/L Normal NA 140 LAB L500.54982 3.5-5.1 MMOL/L Normal K 5.1 LAB L500.37308 98-107 MMOL/L High CL 109 LAB L500.15419 21-32 MMOL/L Low CO2 20 LAB L500.58721 5-16 MMOL/L Normal AGAP 11 LAB L500.64405 70-100 MG/DL High GLU 231 Result Comment: 70-100- Normal Fasting; 100-125 Impaired Fasting; greater than 126 on more than one result- Diabetes. ADA guidelines. Results may be falsely elevated after the administration of Sulfapyridine. Results may be falsely depressed after the administration of Sulfasalazine. LAB L500.11986 7-26 MG/DL High BUN 48 LAB L500.74868 0.510-0.950 MG/DL High CREAT 4.060 Result Comment: Patients receiving either N-Acetylcysteine (NAC) or Metamizole prior to venipuncture, may have falsely depressed results. LAB L500.01051 15-24 Low BUN/CREA 12 LAB L500.70193 3.2-5.0 GM/DL Low ALBUMIN 2.9 LAB L500.84802 8.5-10.1 MG/DL Low CALCIUM TOTAL 8.1 LAB L500.41910 2.5-4.9 MG/DL Normal PHOS 4.8 Performed By: #### L500.69771, L500.58888 #### [facility] [address] [place] [address] GFR EST Collected: 12/05/2017 Status: F Source: [facility] 11:29 AM [facility] REPOSITORY Order Comment: [place]: M TYPE CODE TESTS RESULT OUT OF RANGE REFERENCE UNITS LAB L500.94072 ML/MIN Normal IF non-AFR 12 AMER LAB L500.21572 ML/MIN Normal IF 14 AMER Performed By: #### L500.22222, L500.07823 #### [facility] [address] [place] [address] US DIALYSIS GRAFT/FISTULA Observed: 11/27/2017 Status: F Source: [place] 2:45 PM [facility] [place] [address] Vascular Lab - ICA[facility] Accredited in: Extracranial Cerebrovascular, Visceral Vascular, Vascular Screening & Peripheral Arterial & Venous Testing Alektrona REPORT Patient: SANDY BRAVO Roxanna Dr: HÉCTOR BONILLA M.D. [id number] [age] F Status: REG CLI CARD Reason for Visit: CKD STAGE 5 N18.5 Service Date: 11/27/17 Access#: [id number] Procedure: US DIALYSIS GRAFT/FISTULA Conclusions: Left: 1. The radial artery to cephalic vein AV fistula appears to be stenotic in the proximal outflow with a velocity of 533/205 cm/s. Post stenotic turbulence is visualized distal to the stenosis. 2. The Brachial Artery flow volume is 216cc/min Abbreviated Final Report. Full Report available via Link to [facility] in [email or web address] PCI - Enertiv Image Viewer . Electronically Signed by: HÉCTOR BONILLA M.D. 11/28/17 0828 HÉCTOR BONILLA M.D. cc: HÉCTOR BONILLA M.D. << Signature on File>> Reported By: HÉCTOR BONILLA M.D. Signed By: HÉCTOR BONILLA M.D. Tests performed at: [address] [address] [facility] Observed: 11/06/2017 Status: COMPLETED Source: [place] 1:13 PM [facility] [place] REPOSITORY HNO ID: [id number] Author: Mammography Coordinator Service: (none) Author Type: Physician Type: Letter Filed: 11/07/2017 11:32 PM Note Text: November 06, 2017 PID: [id number] Sandy Soliman [address] [place] [address] Dear Yodit Bravo, We are pleased to inform you that the results of your recent breast imaging exam on 11/06/2017 are normal. Early detection of cancer is very important. We also understand recommendations regarding breast cancer screening are controversial. Please discuss with your primary care provider which strategy is best for you and whether a mammogram is right for you. Your imaging studies and report will be kept on file at [facility] as part of your permanent medical record and are available for your continuing care. Thank you for allowing us to help in meeting your health care needs. Sincerely, Dr. Maya Interpreting Radiologist [facility] (Normal over 40) [facility] SCREENING Observed: 11/06/2017 Status: F Source: [place] 10:15 AM [facility] [place] REPOSITORY * * *Final Report* * * DATE OF EXAM: Nov 06 2017 10:15AM [facility]81 - [facility] SCREENING / PROCEDURE REASON: Encounter for screening mammogram for malignant neoplasm of breast * * * * Physician Interpretation * * * * RESULT: #[id number] - [facility] SCREENING BILATERAL DIGITAL SCREENING MAMMOGRAM WITH CAD: 11/06/2017 HISTORY: Encounter For Screening Mammogram For Malignant Neoplasm Of Breast /Screening Mammogram - patient reports NO breast symptoms /Priors available for comparison. RESULT: TECHNIQUE: The study was acquired using full field digital technology and interpreted from soft copy. Current study was also evaluated with a Computer Aided Detection (CAD). Comparison is made to exams dated: 01/01/2016 mammogram, 10/17/2013 mammogram - [facility] [place], 02/23/2004 mammogram, and 11/05/2002 mammogram. There are scattered fibroglandular elements in both breasts. The patient is status post reduction both breasts. Both breasts have post-operative findings. The parenchymal pattern and appearance of the breasts is unchanged from the prior exams given differences in positioning and technique. No significant masses, calcifications, or other findings are seen in either breast. There has been no significant interval change. IMPRESSION: BENIGN FINDING There is no mammographic evidence of malignancy. A 1 year screening mammogram is recommended. The exam was reviewed by a staff physician. José albright,mitch/elton:11/06/2017 13:13:45 Electrician Yard: Veronica SHEN)(Chris), [facility] letter sent: Normal over 40 Mammogram BI-RADS: 2 Benign finding Fiber Optic Splicer: Elton Transcribe Date/Time: Nov 06 2017 9:54A Dictated by: DARYL BAILEY MD This examination was interpreted and the report reviewed and electronically signed by: JOSÉ MAYA MD on Nov 06 2017 1:13PM EST [id number] Observed: 10/18/2017 Status: COMPLETED Source: [place] 2:[address] [facility] REPOSITORY O ID: [id number] Author: Maldonado Denny Service: (none) Author Type: Physician Type: Progress Notes Filed: 10/18/2017 3:08 PM Note Text: This note was created using [employer]. Subjective Sandy Bravo is a 52 year old female here for overdue follow up. She was seeing Dr. Mullins now and had a fistula placed 2 weeks ago on her left arm. Her medications for hypertension were modified. Her diabetes mellitus was not controlled, and labile. ACTIVE PROBLEM LIST Uncontrolled Type 2 Diabetes Mellitus With Proteinuric Diabetic Nephropathy (Hcc) Htn (Hypertension) Hyperlipidemia Depression Hypothyroid Ascvd (Arteriosclerotic Cardiovascular Disease) Proteinuria Ckd (Chronic Kidney Disease) Stage 4, Gfr 15-29 Ml/Min ([facility]) Current Outpatient Prescriptions: cloNIDine HCl (CATAPRES) 0.2 mg tablet Take 0.2 mg by mouth twice daily. amLODIPine (NORVASC) 5 mg tablet Take 5 mg by mouth once daily. metoprolol tartrate, short acting, (LOPRESSOR) 50 mg tablet TAKE ONE TABLET BY MOUTH TWICE DAILY glimepiride (AMARYL) 4 mg tablet TAKE 1 AND 1/2 TABLETS BY MOUTH DAILY WITH breakfast FLUoxetine HCl (PROZAC) 40 mg capsule TAKE ONE CAPSULE BY MOUTH DAILY atorvastatin (LIPITOR) 40 mg tablet TAKE ONE TABLET BY MOUTH AT BEDTIME FOR cholesterol insulin NPH human (NOVOLIN N) injection TWENTY EIGHT (28) UNITS in the morning, AND TWENTY (20) units at bedtime. insulin aspart (NOVOLOG) 100 unit/mL soln Inject eight (8) units three times a day with meals levothyroxine (SYNTHROID) 112 mcg tablet TAKE ONE TABLET BY MOUTH ONCE DAILY. TAKE ON EMPTY stomach. FOR thyroid. blood sugar diagnostic (BLOOD GLUCOSE TEST) test strip Test blood sugar(s) 3 times daily. Dx: Type 2 DM - Uncontrolled E11.65 Insulin: Yes Blood-Glucose Meter (BLOOD GLUCOSE MONITORING) monitoring kit 1 Each three times daily. E11.65. On insulin. terbinafine HCl (LAMISIL AT) 1 % cream Apply 1 application to affected area twice daily. Both feet and toes. Insulin Syringe-Needle U-100 (BD INSULIN SYRINGE ULTRA-FINE) 1 mL 29 gauge x 1/2 syrg Use twice daily as directed. aspirin, enteric coated (ECOTRIN LOW STRENGTH) 81 mg EC tablet Take 1 tablet by mouth once daily. multivitamin (DAILY MULTIVITAMIN) ORAL Tab Take one(1) tablet daily. No current facility-administered medications for this visit. Review of Systems Constitutional: Negative. Respiratory: Negative. Cardiovascular: Negative. Gastrointestinal: Negative. Genitourinary: Negative. Objective BP 120/68 (BP Site: Right Arm, BP Position: Sitting, BP Cuff Size: Regular Adult) Pulse 68 Temp 36.8 ?C (98.3 ?F) (Temporal Artery) Resp 20 Wt 71.7 kg (158 lb) BMI 28.44 kg/m2 Physical Exam Constitutional: No distress. Cardiovascular: Normal heart sounds. Pulmonary/Chest: Breath sounds normal. Musculoskeletal: She exhibits no edema. Scar left forearm with bruit. CMP: Glucose 100 10/16/2017 BUN 51 10/16/2017 Creatinine 3.83 10/16/2017 Sodium 140 10/16/2017 Potassium 4.8 10/16/2017 Chloride 103 10/16/2017 CO2 24 10/16/2017 Protein, Total 6.6 04/28/2012 Albumin 3.7 04/28/2012 Calcium 8.6 10/16/2017 Alkaline Phosphatase 192 04/28/2012 Bilirubin, Total 0.2 04/28/2012 AST 25 04/28/2012 ALT 32 04/28/2012 Hemoglobin A1C (%) Date Value 10/16/2017 7.8 01/28/2017 8.5 ) ASSESSMENT/PLAN: 1. 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 - INSULIN GLARGINE 100 UNIT/ML SUBCUTANEOUS SOLUTION- New. 50 units SC at bedtime. This will be better due to irregular appetite and meal intake. - Discontinue GLIMEPIRIDE. - COMP METABOLIC PANEL - HGB A1C - ALBUMIN/CREAT RATIO RND UR 2. Essential hypertension - ICD9: 401.9, ICD10: I10 - good control - METOPROLOL TARTRATE 50 MG TABLET 3. Depression, unspecified depression type - ICD9: 311, ICD10: F32.9 Controlled. - FLUOXETINE 40 MG CAPSULE 4. Other hyperlipidemia - ICD9: 272.4, ICD10: E78.4 - good control - Continue current medication. - ATORVASTATIN 40 MG TABLET - LIPID PANEL BASIC 5. CKD (chronic kidney disease) stage 4, GFR 15-29 ml/min ([facility]) - ICD9: 585.4, ICD10: N18.[address] Mullins. 6. Hypothyroidism, unspecified type - ICD9: 244.9, ICD10: E03.9 - continue current dose of Synthroid - TSH BLD 7. Visit for screening mammogram - ICD9: V76.12, ICD10: Z12.31 - [facility] SCREENING Maldonado Denny MD CBC Collected: 10/16/2017 Status: F Source: [place] 8:28 AM [facility] TYPE CODE TESTS RESULT OUT OF REFERENCE UNITS RANGE LAB WBC 3.70-11.00 k/uL WBC 6.00 LAB RBC 3.90-5.20 m/uL RBC 4.06 LAB HGB 11.5-15.5 g/dL Hemoglobin 11.7 LAB HCT 36.0-46.0 % Hematocrit 36.0 LAB MCV 80.0-100.0 fL MCV 88.7 LAB MCH 26.0-34.0 pG MCH 28.8 LAB MCHC 30.5-36.0 g/dL MCHC 32.5 LAB RDWCV 11.5-15.0 % RDW-CV 12.5 LAB PLTCT 150-400 k/uL Platelet Count 235 LAB MPV 9.0-12.7 fL MPV 9.1 LAB ABSNUC <0.01 k/uL Absolute nRBC <0.01 Performed By: #### CBC #### [facility] [address] [place], [place] [address] BASIC METABOLIC PANL Collected: 10/16/2017 Status: F Source: [place] 8:28 AM [facility] RE[facility] TYPE CODE TESTS RESULT OUT OF REFERENCE UNITS RANGE LAB GLU 74-99 mg/dL High Glucose 100 Result Comment: The [place] [employer] (ADA) provides guidance for cutoff values for fasting glucose and random glucose. The ADA defines fasting as no caloric intake for at least 8 hours. Fas ting plasma glucose results between 100 to 125 mg/dL indicate increased risk for diabetes (prediabetes). Fasting plasma glucose results greater than or equal to 126 mg/dL meet the criteria for diagnosis of diabetes. In the absence of unequivocal hyperglycemia, results should be confirmed by repeat testing. In a patient with classic symptoms of hyperglycemia or hyperglycemic crisis, random plasma glucose results greater than or equal to 200 mg/dL meet the criteria for diagnosis of diabetes. Reference: Standards of Medical Care in Diabetes 2016, [place] Diabetes Association. Diabetes Care. 2016.39(Suppl 1). LAB BUN 7-21 mg/dL BUN High 51 LAB CRET 0.58-0.96 mg/dL Creatinine High 3.83 LAB NA 136-144 mmol/L Sodium 140 LAB K 3.7-5.1 mmol/L Potassium 4.8 LAB CL 97-105 mmol/L Chloride 103 LAB CO2 22-30 mmol/L CO2 24 LAB AGAP 9-18 mmol/L Anion Gap 13 LAB CA 8.5-10.2 mg/dL Calcium, Total 8.6 LAB GFRAA eGFR- Amer. 15 LAB GFRNAA . eGFR-All Other Races 12 Result Comment: eGFR (Estimated GFR) Units of measure: mL/min/1.73 meters squared eGFR is derived from the reexpressed MDRD Study equation using the following parameters: serum creatinine, age, gender and race. The creatinine assay has been calibrated to be traceable to IDMS. An eGFR <60 mL/min/1.73m2 for >3 months is consistent with chronic kidney disease. Refer to KDOQI guidelines for clinical interpretation. In patients with unstable renal function, e.g. those with acute kidney injury, the eGFR may not accurately reflect actual GFR. Performed By: #### BMP, HBA1C #### [facility] [address] [place], [place] [address] HEMOGLOBIN A1C Collected: 10/16/2017 Status: F Source: [place] 8:28 AM [facility] RE[facility] TYPE CODE TESTS RESULT OUT OF REFERENCE UNITS RANGE LAB HGBA1C 4.3-5.6 % High Hemoglobin A1c 7.8 LAB HBA0 mg/dL Est. Average Glucose 177 Result Comment: eAG: (Estimated average glucose) is a calculated value from HgbA1c and is litigation claim representative of the average blood glucose level in the last 2-3 month period. Performed By: #### BMP, HBA1C #### [facility] [address] [place], [place] [address] GLUCOSE METER Collected: 10/04/2017 Status: F Source: [facility] 10:41 AM [facility] REPOSITORY TYPE CODE TESTS RESULT OUT OF REFERENCE UNITS RANGE LAB L500.73551 85-125 MG/DL High GLUCOSE METER 169 PATIENT RETYPE Collected: 10/04/2017 Status: F Source: [facility] 8:05 AM [facility] REPOSITORY TYPE CODE TESTS RESULT OUT OF RANGE REFERENCE UNITS LAB B100.48518 A Normal RETYPE POSITIVE INTERP CBC W/DIFF Collected: 10/04/2017 Status: F Source: [facility] 7:00 AM [facility] REPOSITORY Order Comment: [place]: M TYPE CODE TESTS RESULT OUT OF RANGE REFERENCE UNITS LAB L200.55644 4.5-11.0 K/CU MM WBC Normal 7.5 LAB L200.64638 3.90-5.30 M/CU MM Low RBC 3.87 LAB L200.34929 11.5-15.5 G/DL Low HGB 11.0 LAB L200.70785 35.0-47.0 % Low HCT 33.0 LAB L200.09786 80.0-99.0 fl MCV Normal 85.3 LAB L200.41896 32.0-36.0 GM/DL MCHC Normal 33.3 LAB L200.95358 11-14.5 RDW Normal 12.7 LAB L200.18756 9.4-12.4 Low MPV 9.0 LAB L200.07681 150-450 K/CU MM PLT Normal 189 LAB L200.43323 45-75 % High NEUTROPHILS % 76.4 LAB L200.81943 Less than 2 % IMMATURE Normal GRAN % 0.3 LAB L200.18952 20-40 % Low LYMPH % 16.2 LAB L200.07393 2-10 % MONOCYTE % Normal 5.2 LAB L200.86404 0-5 % EOSINOPHIL Normal % 1.1 LAB L200.91416 0-2 % BASOPHIL % Normal 0.8 LAB L200.44532 2.0-8.3 K/CU MM NEUTROPHIL Normal ABS 5.80 LAB L200.36713 Less than 2 K/CU MM IMMATR GRAN Normal ABS 0.00 LAB L200.82191 0.9-4.4 K/CU MM LYMPH ABS Normal 1.20 LAB L200.50941 0.1-1.1 K/CU MM MONO ABS Normal 0.40 LAB L200.96422 0-0.5 K/CU MM EOS ABS Normal 0.10 LAB L200.11190 0-0.2 K/CU MM BASO ABS Normal 0.10 LAB L200.63757 Less than 1 % NRBC Normal 0.0 Performed By: #### L200.46771 #### [facility] LABOR[facility]ORY [address] [place] [address] BMP Collected: 10/04/2017 Status: F Source: [facility] 7:00 AM [facility] REPOSITORY Order Comment: [place]: TYPE CODE TESTS RESULT OUT OF RANGE REFERENCE UNITS LAB L500.56027 136-145 MMOL/L Normal NA 139 LAB L500.04923 3.5-5.1 MMOL/L Normal K 4.9 LAB L500.26768 98-107 MMOL/L Normal CL 106 LAB L500.02573 21-32 MMOL/L Normal CO2 25 LAB L500.08404 5-16 MMOL/L Normal AGAP 8 LAB L500.68399 70-100 MG/DL High GLU 224 Result Comment: 70-100- Normal Fasting; 100-125 Impaired Fasting; greater than 126 on more than one result- Diabetes. ADA guidelines. Results may be falsely elevated after the administration of Sulfapyridine. Results may be falsely depressed after the administration of Sulfasalazine. LAB L500.86330 7-26 MG/DL High BUN 52 LAB L500.37800 0.510-0.950 MG/DL High CREAT 4.160 Result Comment: Patients receiving either N-Acetylcysteine (NAC) or Metamizole prior to venipuncture, may have falsely depressed results. LAB L500.47115 15-24 Low BUN/CREA 12 LAB L500.95026 8.5-10.1 MG/DL Low CALCIUM TOTAL 8.2 Performed By: #### L500.10414, L500.45666 #### [facility] [address] [place] [address] GFR EST Collected: 10/04/2017 Status: F Source: [facility] 7:00 AM [facility] REPOSITORY Order Comment: [place]: M TYPE CODE TESTS RESULT OUT OF RANGE REFERENCE UNITS LAB L500.98577 ML/MIN Normal IF non-AFR 11 AMER LAB L500.44698 ML/MIN Normal IF 14 AMER Performed By: #### L500.56525, L500.16188 #### [facility] [address] [place] [address] TS Collected: 10/04/2017 Status: F Source: [facility] 7:00 AM [facility] REPOSITORY Order Comment: [place]: M Patient transfused or in the past 3 months? NO Is This Patient Going To Surgery? Y Surgery Date: 10/04/17 TYPE CODE TESTS RESULT OUT OF RANGE REFERENCE UNITS LAB B100.0400 A Normal BLOOD TYPE POSITIVE LAB B100.0680 Normal ANTIBODY NEGATIVE SCREEN OR Observed: 10/04/2017 Status: UNK Source: [facility] 5:52 AM [facility] REPOSITORY DATE OF SERVICE: 10/04/2017 PREOPERATIVE DIAGNOSIS: Chronic renal failure. POSTOPERATIVE DIAGNOSIS: Chronic renal failure. OPERATION: Left radiocephalic arteriovenous fistula. SURGEON: Héctor Bonilla MD ESTIMATED BLOOD LOSS: Minimal. ANESTHESIA: General. COMPLICATIONS: None. SPECIMENS: None. REASON FOR PROCEDURE: This is a 52-year-old white female presents for a fistula creation for chronic renal failure for long-term dialysis access. The risks and benefits of the procedure were detailed with the patient and family. They stated they understood and agreed to the procedure. PROCEDURE: The patient was brought to the operating room where she was placed in supine position. After adequate general anesthesia was established, the left arm was prepped and draped in the standard sterile fashion. Ultrasound surveillance of the left arm revealed borderline adequate cephalic vein but it was really the only option she had. The radial artery was palpable +3. The vein was marked, the radial artery was marked. A longitudinal incision was made in the distal radial aspect of the wrist. Dissection was carried out through the soft tissue and through the fascial layer and encircling the radial artery with vessel loops. This meticulous dissection was carried to free up the cephalic vein from the surrounding soft tissue. It was flushed, ligated distally, flushed with heparinized saline, dilated up fairly well to 2.5 to 3. The patient was systemically heparinized. We then performed an end-to-side spatulated anastomosis between the cephalic and radial artery with a 7-0 Prolene suture. The vessel was flushed, antegrade flow restored. Good thrill was noted as well as a Doppler signal. The dorsal branch was ligated with Hemoclip. Good flow was noted throughout. The patient had minimal branching proximally into the forearm and antecubital fossa. Attention was placed to the wound, it was irrigated and noted to be hemostatic. Surgicel was placed. The wound was then closed with Vicryl suture and subcuticular stitch and Steri-Strips to the skin. Sponge, needle and instrument counts were correct at the end of the case. The patient tolerated the procedure and was transferred to the recovery room in stable condition. [facility] PATIENT NAME: SANDY BRAVO [address] [place] MEDICAL REC #: [id number] [place] [address] ADMIT DATE: DISCHARGE DATE: OPERATIVE REPORT ATTENDING PHY: Héctor Bonilla MD Héctor Bonilla MD /[id number] SSI File#: [id number] Verified/Reviewed by 10/04/17 1119 PREJE [facility] PATIENT NAME: SANDY BRAVO RoshniJonathan Lizeth [place] MEDICAL REC #: [id number] [place] [address] ADMIT DATE: DISCHARGE DATE: OPERATIVE REPORT ATTENDING PHY: Héctor Bonilla MD EKG Observed: 10/04/2017 Status: UN Source: [facility] 5:52 [facility] Procedure Date and Time: 10/04/17643 Test Reason : URGENT Blood Pressure : / mmHG Vent. Rate : 067 BPM Atrial Rate : 067 BPM P-R Int : 166 ms QRS Dur : 100 ms QT Int : 460 ms P-R-T Axes : -05 -42 108 degrees QTc Int : 486 ms Normal sinus rhythm Left axis deviation Left ventricular hypertrophy with repolarization abnormality Abnormal ECG No previous ECGs available Confirmed by CHANDLER HOOKS MD ([id number]) on 10/04/2017 6:16:03 PM Referred By: Héctor Bonilla Confirmed By:CHANDLER HOOKS MD Ruth DDandT: 10/04/1744 TDandT: [facility] PATIENT NAME: SANDY BRAVO Lizeth [place] MEDICAL REC #: [id number] [place] [address] ADMIT DATE: DISCHARGE DATE: ATTENDING PHY: Héctor Bonilla MD ELECTROCARDIOGRAM REPORT CLB cc: [facility] PATIENT NAME: SANDY BRAVO [address] [place] MEDICAL REC #: [id number] [place] [id number] ADMIT DATE: DISCHARGE DATE: ATTENDING PHY: Héctor Bonilla MD ELECTROCARDIOGRAM REPORT CNPTOUTREACH Observed: 10/03/2017 Status: COMPLETED Source: [place] 12:[address] 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 Assessed Visit Diagnosis:Medication management [Z79.899] Order(s):[facility] [[facility]] Order #: [id number] FUTURE Prescriptions as of 10/03/2017 Sig: X METOPROLOL TARTRATE 50 MG TAB* TAKE ONE TABLET BY MOUTH TWIC* X GLIMEPIRIDE 4 MG TABLET TAKE 1 AND 1/2 TABLETS BY RADHAMES* X FLUOXETINE 40 MG CAPSULE TAKE ONE CAPSULE BY MOUTH ENA* X ATORVASTATIN 40 MG TABLET TAKE ONE TABLET BY MOUTH AT B* X INSULIN NPH HUMAN RECOMB 100 * TWENTY EIGHT (28) UNITS in th* X INSULIN ASPART 100 UNIT/ML WORLEY* Inject eight (8) units three * LEVOTHYROXINE 112 MCG TABLET TAKE ONE TABLET BY MOUTH ONCE* BLOOD SUGAR DIAGNOSTIC STRIPS Test blood sugar(s) 3 times d* BLOOD-GLUCOSE METER KIT 1 Each three times daily. E11* TERBINAFINE HCL 1 % TOPICAL C* Apply 1 application to affect* INSULIN SYRINGE-NEEDLE U-100 * Use twice daily as directed. X LISINOPRIL 20 MG-HYDROCHLOROT* Take 1 tablet by mouth once d* * ASPIRIN 81 MG TABLET,DELAYED * Take 1 tablet by mouth once d* * DAILY MULTIVITAMIN TABLET Take one(1) tablet daily. Problem List As Of Date 10/03/2017 Noted Resolved Calculus of ureter [N20.1] INVALID FOR*03/22/2012 Urinary tract infection, site not specified [N3*INVALID FOR*03/22/2012 Renal colic [N23] INVALID FOR*03/22/2012 Uncontrolled type 2 diabetes mellitus with prot*INVALID FOR* HTN (hypertension) [I10] INVALID FOR* Hyperlipidemia [E78.5] INVALID FOR* Depression [F32.9] INVALID FOR* Hypothyroid [E03.9] INVALID FOR* ASCVD (arteriosclerotic cardiovascular disease)*INVALID FOR* Proteinuria [R80.9] INVALID FOR* CKD (chronic kidney disease) stage 3, GFR 30-59*INVALID FOR*05/02/2017 CKD (chronic kidney disease) stage 4, GFR 15-29*INVALID FOR* More... Encounter Status:Closed by [employer] PRODUSER on 10/22/17 ALLERGIES ALLERGIES DATE TYPE / CODE NAME / CODE REACTION SEVERITY SOURCE 09/13/2018 Drug Penicillins/F001 Unknown Unknown [place] Allergy/628438870( 629949(RXNORM) [facility] Hospital Repository 09/13/2018 Drug codeine/Q3531566 Unknown Unknown [place] Allergy/871958806( 50(RXNORM) [facility] SNOMED CT) Hospital Repository 09/13/2018 Drug latex/[id number] Unknown Unknown [place] Allergy/261221282( [facility] 03/22/2012 DRUG LATEX HIVES [place] INGREDI/276819824( [facility] SNOMED [facility]) [place] Repository 12/11/2006 DRUG CODEINE GI UPSET [place] INGREDI/634952268( [facility] SNOMED CT) [place] Repository 12/11/2006 Drug PENICILLINS SWELLING [place] Class/822088254([facility] OMED CT) [place] Repository Environmental LATEX Moderate [place] Allergy/624878796( (Severity [facility] SNOMED CT) Modifier) Hospital (Qualifier Repository Value) Drug PENICILLINS REDNESS, Moderate [place] Allergy/271921936( (CLASS)/72498134 RASH, ([facility] (RXNORM) SWELLING; Modifier) Hospital SOB, SWELL[place] (Qualifier Repository Value) Drug CODEINE/89366329 RASH; Moderate [place] Allergy/596169998( (RXNORM) VOMITING, (Severity [facility] SNOMED CT) NAUSEA Modifier) Hospital (Qualifier Repository Value) ENCOUNTERS ENCOUNTERS ADMIT/DISCHARGE ACCOUNT NUMBER ADMITTING ENCOUNTER LOCATION SOURCE CLASS 09/20/2018 [id number] Ambulatory BMSBuilding: [place] BMS.CF.[facility] Repository 09/20/2018/09/20/19 [id number] Ambulatory [address] ding:SDCRoom Repository : AC06 08/23/2018/08/23/20 [id number] Ambulatory BMSBuilding: [place] 18 BMS.[facility] Repository 08/21/2018 [id number] Ambulatory BMSBuilding: [place] BMS.CF.[facility] Repository 08/21/2018 [id number] Ambulatory [facility] ding:[facility] Repository 08/14/2018/08/15/20 [id number] Ambulatory [address] Repository 08/14/2018/08/14/20 [id number] Ambulatory BMSBuilding: [place] 18 BMS.[facility] Repository 07/24/2018 [id number] Inpatient [facility] Repository ng:H.SD 06/15/2018/06/15/[id number] ELIGIO Emergency Buildin[address] [place] [address] Room: ERBed: [facility] Repository 06/07/2018/06/08/20 [id number] KADE DE LA TORRE Emergency Buildin[address] [place] [address] DO Room: ERBed: [facility] Repository 05/16/2018 [id number] Inpatient [facility] Repository ng:H.SD 05/11/2018/05/15/20 [id number] Joanne, Inpatient [address] Repository ng:H.9MRoom: [id number]: 05/11/2018/05/11/20 [id number] STELLA, Emergency Buildin [facility] 18 ARTIE Room: ERBed: [facility] Repository 05/10/2018/05/14/20 [id number] Ambulatory [address] Repository 05/01/2018 [id number] Inpatient [facility] Repository ng:H.SD 04/05/2018 [id number] Ambulatory [facility] ding:MRI Repository 03/20/2018 [id number] Inpatient [facility] Repository ng:H.SD 03/01/2018/03/05/20 [id number] Ambulatory [address] Repository 02/13/2018/02/17/20 [id number] Asfoura, Inpatient [address] Repository ng:H.8MRoom: [id number]: 02/10/2018/02/11/20 [id number] Ambulatory [address] Repository 01/23/2018 [id number] [facility], Ambulatory [facility] Repository 01/14/2018/01/18/20 [id number] DAVID, Inpatient Buildin [place] [address] JAKOB VILLANUEVA Encounter Room: [address] [place] [address] Repository 01/11/2018 [id number] Ambulatory ABuilding:ROSA Chan U [facility] Repository 01/09/2018/01/11/20 [id number] Ambulatory [address] Repository 01/09/2018/01/10/20 [id number] Ambulatory [address] Repository 01/08/2018/01/09/20 [id number] Ambulatory ABuilding:ROSA Chan 18 URoom: Health 0115Bed: A Foundation Repository 12/27/2017/12/30/19 [id number] Ambulatory [address] Repository 12/13/2017 [id number] Inpatient [facility] ng:H.SD 12/05/2017 [id number] Inpatient [facility] Medical Encounter [facility] Repository ng:H.SD 12/01/2017 [id number] Ambulatory ABuilding:SD [facility] Repository 11/27/2017 [id number] Ambulatory UNIBuilding: [facility] Repository 11/06/2017/11/07/19 [id number] Ambulatory [address] Repository 10/18/2017/10/18/19 [id number] Ambulatory [address] Repository 10/16/2017/10/16/19 [id number] Ambulatory [address] Repository 10/04/2017 [id number] Inpatient [facility] Repository ng:H.SD PAYERS PAYERS ENCOUNTER GUARANTOR PAYER SUBSCRIBER SOURCE 09/20/2018 SANDY BOYKINAY744 Primary SANDY Garay ABHIJEET Insurance:MEDICARE MCVAYDOB: [place], [place] PART A BPolicy Number: [id number] Hospital 33453Gvc: 234 [id number] Repository [phone] () Date:2018-08-29 09/20/2018 Secondary SANDY Mai [place] Insurance:MEDICAIDPoli [facility]: [facility] cy Number: [id number] Hospital [id number] Repository Date:2018-08-29 09/20/2018 Tertiary NOT GIVENUNK [place] Insurance:SELF PAY [facility] Number: Effective Repository Date:2018-09-20 09/20/2018 SANDY Oneill [id number] Primary SANDY Garay ABHIJEET Insurance:MEDICARE MCVAYDOB: [place] PART A BPolicy Number: [id number] Hospital 03866Ikt: (234 [id number] Repository [phone] () Date:2018-08-29 09/20/2018 Secondary SANDY Mai [place] Insurance:MEDICAIDPoli [facility] Community cy Number: [id number] Hospital [id number] Repository Date:2018-08-29 09/20/2018 Tertiary NOT GIVENUNK [place] Insurance:SELF PAY [facility]: Effective Repository Date:2018-08-29 08/23/2018 SANDY BOYKINAY744 Primary SANDY Garay ABHIJEET Insurance:MEDICARE MCVAYDOB: [place] PART A BPolicy Number: [id number] Hospital 13617Tnt: 234 [id number] Repository [phone] (HP) Date:2018-08-15 08/23/2018 Secondary SANDY Mai [place] Insurance:MEDICAIDPoli MCVAYDOB: [facility] cy Number: [id number] Hospital [id number] Repository Date:2018-08-15 08/23/2018 Tertiary NOT GIVENUNK [place] Insurance:SELF PAY [facility] Number: Effective Repository Date:2018-08-22 08/21/2018 SANDY BOYKINAY744 Primary SANDY Garay ABHIJEET Insurance:MEDICARE MCVAYDOB: [place] PART A BPolicy Number: [id number] Hospital 19732Bhb: 234 [id number] Repository [phone] (HP) Date:2018-08-15 08/21/2018 Secondary SANDY Mai [place] Insurance:MEDICAIDPoli MCVAYDOB: [facility] cy Number: [id number] Hospital [id number] Repository Date:2018-08-15 08/21/2018 Tertiary NOT GIVENUNK [place] Insurance:SELF PAY [facility] Number: Effective Repository Date:2018-08-21 08/21/2018 SANDY Oneill [id number] Primary SANDY Garay ABHIJEET Insurance:MEDICARE MCVAYDOB: [place] PART A BPolicy Number: [id number] Hospital 60276Svv: 234 [id number] Repository [phone] (HP) Date:2018-08-15 08/21/2018 Secondary SANDY Mai [place] Insurance:MEDICAIDPoli MCVAYDOB: Community cy Number: [id number] Hospital [id number] Repository Date:2018-08-15 08/21/2018 Tertiary NOT GIVENUNK [place] Insurance:SELF PAY [facility] Number: Effective Repository Date:2018-08-15 08/14/2018 Dante [id number] Primary SANDY Garay [address], Insurance:MEDICARE MCVAYDOB: [facility] [address]Uud: PART A BPolicy Number: [id number] Hospital [id number] Repository (HP) Date:2018-08-06 08/14/2018 Secondary SANDY Garay Insurance:MEDICAIDPoli MCVAYDOB: Community cy Number: [id number] Hospital [id number] Repository Date:2018-08-06 08/14/2018 Tertiary NOT GIVENUNK [place] Insurance:SELF PAY [facility] Number: Effective Repository Date:2018-08-06 07/24/2018 SANDY BOYKINAY744 Primary SANDY BEAVER [facility] Insurance:MEDICAREPoli [place] Number: Repository 715[address]Tck: [phone] [id number] [phone] (HP) Date:2012-12-03 [address] [id number] [address]HZ: 07/24/2018 Secondary SANDY BEAVER [facility] Insurance:MEDICAID [facility] Number: Repository [id number] Date:9515-72-53YJ [address] [address]KP: 06/15/2018 SANDY Oneill MCVAYDOB: Primary SANDY Siddiqui Insurance:MEDICARE MCVAYDOB: [facility] [id number] [place] [address] Number: [facility] Repository 248[address]Tdq: [phone] [id number] [facility] [phone] (HP) Date:Plan Name:[facility] [id number] 06/15/2018 Secondary SANDY Siddiqui Insurance:MEDICAID MCVAYDOB: [facility] [id number] Hospital Number: [facility] [id number] [facility], Date:Plan Name:[facility] [id number] 06/07/2018 SANDY COVARRUBIASB: Primary SANDY Siddiqui Insurance:MEDICARE [facility] [id number] [place] [address] Number: [facility] Repository [address]Dhz: ([phone] [id number] [facility], [phone] (HP) Date:Plan Name:[facility] [id number] 06/07/2018 Secondary SANDY Siddiqui Insurance:MEDICAID MCVAYDOB: [facility] [id number] Hospital Number: [facility] [id number] [facility], Date:Plan Name:[facility] [id number] 05/16/2018 SANDY CANO Primary SANDY BEAVER [facility] [place] Number: Repository [address]Ngw: 234 [id number] [phone] (HP) Date:2012-12-03[address] CODE [place]O177NOZZMNGM, [place] [address]QQ: 05/16/2018 Secondary [facility]Y BEAVER [facility] Insurance:MEDICAID [place] O[place]ol[place] Number: Repository [id number] Date:3471-05-76[address] [address]SG: 05/11/2018 SANDY CANO Primary SANDY BEAVER [facility] Insurance:MEDICAREPoli [place] Number: Repository [address]Dwc: 234 [id number] [phone] (HP) Date:2012-12-03[address] CODE AI642MZEESQWL, [place] [address]NQ: 05/11/2018 Secondary SANDY BEAVER [facility] Insurance:MEDICAID [facility] Number: Repository [id number] Date:8681-79-92GZ [address] [address]PD: 05/11/2018 SANDY Oneill MCVMILYDOB: Primary SANDY Siddiqui Insurance:MEDICARE MCVAYDOB: [facility] [id number] [place] [address] Number: [facility] Repository [address]Ant: ([phone]) [id number] [facility], [phone] (HP) Date:Plan Name:[facility] [id number] 05/11/2018 Secondary SANDY Siddiqui Insurance:MEDICAID MCVAYDOB: [facility] [id number] Hospital Number: [facility] [id number] CR[facility]ICAL [facility], Date:Plan Name:[facility] [id number] 05/01/2018 SANDY Oneill [id number] Primary SANDY BEAVER [facility] Insurance:MEDICAREPoli [place] Number: Repository [address]Mfj: ([phone] [id number] [phone] (HP) Date:2012-12-03 [facility] [address] CODE [id number], [place] [address]NN: 05/01/2018 Secondary SANDY BEAVER [facility] Insurance:MEDICAID [facility] Number: Repository [id number] Date:9982-80-71[address] [address]LJ: 04/05/2018 Dante [id number] Primary SANDY Garay [address], Insurance:MEDICARE MCVAYDOB: [facility] [address]Fkw: PART A BPolicy Number: [id number] Hospital [id number] Repository (HP) Date:2018-03-27 04/05/2018 Secondary SANDY K Tanish[place] Insurance:MEDICAIDPoli MCVAYDOB: Community cy Number: [id number] Hospital [id number] Repository Date:2018-03-27 04/05/2018 Tertiary NOT GIVENUNK [place] Insurance:SELF PAY [facility] Number: Effective Repository Date:2018-03-27 03/20/2018 SANDY BOYKINAY744 Primary SANDY BEAVER [facility] Insurance:MEDICAREPoli [place] Number: Repository [address]Bey: 234 [id number] [phone] () Date:2012-12-03[address] CODE IK068OCIWAEBI, [place] [address]MI: 03/20/2018 Secondary SANDY BEAVER [facility] Insurance:MED[place] Number: Repository [id number] Date:6209-89-02[address] [address]NZ: 02/13/2018 SANDY BOYKINAY744 Primary SANDY BEAVER [facility] Insurance[facility] [place] Number: Repository [id number]: 234 [id number] [phone] () Date:2012-12-03[address]HYEW CODE [id number], [place] [address]LM: 02/13/2018 Secondary SANDY BEAVER [facility] Insurance:MEDICA[place] Number: Repository [id number] Date:2018-02-132241-25-98DF [address], [place] [address]XU: 01/23/2018 SANDY Oneill MCVGÓMEZB: Primary SANDY Siddiqui [id number] Insurance:[facility]IC[facility]: [facility] [id number] [place] [address] Number: [facility] Repository [address]Lwt: [phone] [id number] [facility], [phone] (HP) Date:Plan Name:[facility] [id number] 01/23/2018 Secondary SANDY Siddiqui Insurance:MEDICAID MCVAYDOB: [facility] [id number] Hospital Number: [facility] [id number] [place], Date:Plan Name:[facility] [id number] 01/14/2018 SANDY Oneill MCVAYDOB: Primary SANDY Mai [facility] Insurance:MEDICARE MCVAYDOB: [facility] [id number] [place] [address] Number: [facility] 31005Ecr: [phone]) [id number] [place], [id number] () Date:Plan Name:[facility] [id number] 01/14/2018 Secondary SANDY Mai [facility] Insurance:MEDICAID MCVAYDOB: [facility] [id number] Hospital Number: [facility] [id number] [place], Date:Plan Name:[facility] [id number] 01/11/2018 SANDY K MCVAYDOB: Primary [facility] Insurance:MEDICARE MCVAYDOB: [facility] BPolicy Number: [id number] [place], [place] [id number] [place] [address]Vjy: (234) Date:2018-01-10 [facility] [id number] () [id number] [place] [address]Pww: Name:[facility] Administrators LLCPO (HP)Tel: [phone]) [place] [address]Eiaiiwcvk, [place] 000-0000 () 180[address]CY: 01/11/2018 Secondary [facility] Insurance:MEDICAID [facility]: [facility] Number: [id number] Repository [id number] [place] Date:2018-01-10 - [facility] 0224-06-05Awot [place] [address]Bid: Name:RICARDO LAWRENCE [address]Qtiafxzd, [place] (HP)Tel: 000) [phone]: (WP) [phone] 01/08/2018 SANDY COVARRUBIASB: Primary [facility] Insurance:MEDICARE MCVAYDOB: [facility] BPolicy Number: [id number] Repository [place], [place] [id number] [place] [address]Kxx: (234) Date:2017-03-18 - [facility] [id number] (HP) [id number] [place] [address]Mcy: Name:[facility] LLCPO (HP)Tel: (000) [address] [address]Txwipgyet, [place] 000-0000 (WP) [address]BQ: 01/08/2018 Secondary [facility] Insurance:MEDICAID OF MCVAYDOB: [facility] Number: [id number] Repository [id number] [facility] Date:2017-12-01 - [facility] 0241-00-84[place] [address]Psa: Name:RICARDO LAWRENCE [address]Nazuzkdu, [place] (HP)Tel: 000) [phone]: (WP) [phone] 12/13/2017 SANDY Oneill [id number] Primary SANDY K [facility] Insurance:MEDICAREPoli [place] Number: Repository [id number]: [phone] [id number] (HP) Date:2012-12-03[address]U CODE CV237WXUYKYYS, [place] [address]BF: 12/13/2017 Secondary SANDY K [facility] Insurance:MEDICAID [facility] Number: Repository [id number] Date:3895-39-94[address] [address]DL: 12/05/2017 SANDY CANO Primary SANDY BEAVER [facility] [place] Number: Repository [id number]: [phone]) [id number] [phone] (HP) Date:2012-12-03 [address]VCNV CODE WR523GJBRGOEWJACKSON[place] [address]OP: 12/05/2017 Secondary SANDY BEAVER [facility] Insurance:MEDICAID [facility] Number: Repository [id number] Date:3109-57-58[address], [place] [address]CE: 12/01/2017 SANDY Oneill [facility]B: Primary [facility] Insurance:MEDICARE MCVAYDOB: [facility] BPolicy Number: [id number] Repository [place], [place] [id number] [facility] [address]Msc: (234) Date:2017-12-01 - [facility], 7499 (HP) [id number] [place] [address]Rbs: Name:[facility] [employer] (HP)Tel: (000) [address] [address]Ygzrsrvay, [place] 000-0000 (WP) [address]RI: 12/01/2017 Secondary [facility] Insurance:[facility]ICAID [facility]: [facility] Number: [id number] Repository [id number] [facility] Date:2017-12-01 - [facility] 9598-19-17Zbif [place] [address]Nqy: Name:RICARDO LAWRENCE [address]Qjfaceww, [place] (HP)Tel: 000) [address]WP: (WP) [phone] 11/27/2017 SANDY CANO Primary SANDY BEAVER [facility] Insurance:MEDICARE [facility] [place] DISABILITYPolic Repository [address]Xvt: 234) Number: [phone] () [id number] Date: 11/27/2017 Secondary SANDY BEAVER [facility] [place] Number: Repository [id number] Date: 10/04/2017 SANDY [id number] Primary SANDY BEAVER [facility] Insurance:[facility] [place] Number: Repository [id number]: [phone] [id number] [phone] () Date:2012-12-03[address]MMRR CODE VM928ZGHZADVMJACKSON, [place] [address]CR: 10/04/2017 Secondary [facility] Insurance:MEDICAID OF [facility] [place] Number: Repository [id number] Date:5348-03-75XI [address], [place] [address]UB:
== END ==
PROVIDERS: Family Provider Internal Medicine; PCP Internal Medicine; Referring Provider Surgery; Visit Provider Surgery
DX: Z01.818 Encounter for other preprocedural examination (principal); N18.4 Chronic kidney disease, stage 4 (severe); Z99.2 Dependence on renal dialysis; T82.590A Other mechanical complication of surgically created arteriovenous fistula, initial encounter
CPT/HCPCS: 93970; 93971; 93990; G0365

== ENCOUNTER 2018-09-20 09:55 | Day surgery (SDC) | payer MEDICARE, MEDICAID, SELFPAY ==
[2018-08-23 10:16] VITALS: BMI 28.0
--- NOTE | 2018-09-18 13:31 | EKG12_ITS ---
Test Reason : PREOP Blood Pressure : / mmHG Vent. Rate : 061 BPM Atrial Rate : 061 BPM P-R Int : 186 ms QRS Dur : 100 ms QT Int : 460 ms P-R-T Axes : 014 -40 112 degrees QTc Int : 463 ms Normal sinus rhythm Left axis deviation Left ventricular hypertrophy with repolarization abnormality Abnormal ECG Confirmed by KATIUSKA VILLANUEVA, ANDER ([id number]), photographic editor ABRIL LAM ([id number]) on 09/19/2018 1:55:01 PM Referred By: Ruben Hu Confirmed By:ANDER HARP MD
[2018-09-18 14:13] LABS: Hematocrit 38.7 % (37-47); Hemoglobin 12.2 g/dl (12.0-15.0); Mean Corp Hgb Conc 31.5 g/gl (32-36); Mean Corpuscular Volume 95.3 fL (81-99); Mean Platelet Vol. 8.9 fl (6.2-12.0); Platelet Count 201 K/mm3 (150-450); RBC Distribution Width CV 13.7 % (11.6-14.6); RBC Distribution Width SD 46.8 fl (35.1-43.9); Red Blood Count 4.06 M/mm3 (4.2-5.4); White Blood Count 5.9 K/mm3 (4.4-11.0)
[2018-09-18 14:14] LABS: Scan Indicated on CBC? Y/N NO
[2018-09-18 14:28] LABS: Anion Gap 11 (5-15); BUN 40 mg/dL (7-18); BUN/Creat Ratio 6.8 RATIO (10-20); Calcium,Total 9.1 mg/dL (8.5-10.1); Chloride 106 mmol/L (98-107); Creatinine, Serum 5.85 mg/dL (0.55-1.02); EST Glomerular Filtration Rate 8 mL/min (>60); Est Glom Filt Rate - Afr Amer 10 mL/min (>60); Glucose 205 mg/dL (74-106); Sodium Level 139 mmol/L (136-145)
[2018-09-20 10:20] VITALS: BP 121/54; PULSE 64; RESP 16; TEMP 36.4; O2SAT 98; BMI 28.0
[2018-09-20 10:36] LABS: Bedside Glucose 227 mg/dL (70-110)
[2018-09-20] MEDS: Bupivacaine 0.5% PF 10 ML VIAL (11:04)
[2018-09-20] MEDS: Heparin Injection (Vial) 5,000 UNIT/ML VIAL 5000 UNIT (11:45)
--- NOTE | 2018-09-20 12:37 | PCM.DC.FIST ---
Discharge Diet: Renal Diet Discharge Activity: May Not Drive - for 2-3 days or while taking narcotic pain medications., May Shower, May Take a Tub Bath - in 5 days. Lifting Restrictions: 5 pounds Keep extremity elevated above heart level: - - Keep arm elevated above the heart level for 3 days. Additional Activity Instructions:: Exercise hand vigorously with a stress ball. Call your doctor if your incision/area has: Continuous Slow Oozing, Sudden Increased Bleeding - apply pressure and call your doctor., Increased Pain/ Swelling, Increased Redness, Foul Smelling Discharge Call your doctor if you observe: Fever of 101 or Higher Suture Line Care: Avoid Pulling/Pushing, Avoid Pinching/Bending Cleanse incision/area with: Keep Dressing Clean & Dry Additional Dressing/Incision Instructions:: Change or remove dressing in two days. May protect with a gauze bandaid. Allergies/Adverse Reactions: Allergies codeine Allergy (Unknown, Verified 09/13/18 08:59) Unknown latex Allergy (Unknown, Verified 09/13/18 08:59) Unknown Penicillins Allergy (Unknown, Verified 09/13/18 08:59) Unknown Medications to take at Discharge amlodipine 10 mg tablet 10 mg PO DAILY 08/14/18 aspirin 81 mg tablet,delayed release 81 mg PO DAILY 08/14/18 atorvastatin 40 mg tablet 40 mg PO QHS 08/14/18 clonidine HCl 0.3 mg tablet 0.3 mg PO BID 08/14/18 insulin aspart U- 100 100 unit/mL subcutaneous pen 8 unit SC TID 08/14/18 levothyroxine 112 mcg capsule 112 mcg PO DAILY 08/14/18 lisinopril 20 mg tablet 20 mg PO BID tab 08/14/18 metoprolol tartrate 50 mg tablet 50 mg PO BID 08/14/18 vitamin B complex-vitamin C-folic acid 0.8 mg tablet 1 tab PO DAILY 08/14/18 Insulin Detemir [Levemir FlexPen] 50 units SC QHS 09/13/18 Hydrocodone Bitart/Apap 5-325 [[place] 5MG-325MG] 1 tablet PO Q6H PRN PRN 3 Days #8 tablet 09/20/18 The following prescriptions were given: Hydrocodone Bitart/Apap 5-325 [[place] 5MG-325MG] 1 tablet PO Q6H PRN PRN 3 Days #8 tablet PRN Reason: Pain Primary Care Physician: Maldonado Denny MD [Primary Care Provider] - Test Results: Test results from this visit will be discussed in further detail at your follow-up appointment, if applicable. Please Follow Up With: Ruben Hu MD - [phone] When: Call to make an appointment for suture removal and follow up in 3 weeks.
--- NOTE | 2018-09-20 12:39 | PCM.OPRPT ---
Problem List (1) Problem with dialysis access Status: Acute Qualifiers: Report of Operation Date of Procedure: 09/20/18 Pre-Operative Diagnosis: Failure to mature left forearm radiocephalic arteriovenous hemodialysis fistula Post-Operative Diagnosis: Same Surgery/Procedure Performed:: Left upper extremity stage I brachiobasilic arteriovenous hemodialysis fistula creation Description of Surgical Findings:: Timeout and informed consent was obtained. 53-year-old female was taken to the operating room. She was placed on the table. The left extremity sterilely prepped and draped. 1% lidocaine mixed 50-50 with 0.5% Marcaine was used as local anesthetic. Total 10 cc was used. Ultrasound was used to identify the very diminutive basilic vein of the left upper arm. Local was instilled. Slightly oblique incision was created tedious sharp and blunt dissection was used to identify the basilic vein. It was circumferentially dissected free and dissected free distally. Side branches were secured with hemoclips. Then sharp and blunt dissection was used to identify the brachial artery even this dissection was tedious. Were needed hemostasis was obtained with hemoclips and were needed interrupted 6-0 Prolene sutures. Having completely identify the basilic vein and the brachial artery the patient received 7000 units of heparin. After adequate Strickling time peripheral vascular clamps were then placed on the brachial artery. 11 blade was used to make an arteriotomy. The vein was spatulated and a end-to-side anastomosis was created with running 7-0 Prolene. A couple repair sutures of 7-0 Prolene was required. There appeared to be good flow within the newly created fistula. Doppler was used to confirm audible unobstructed flow. Hemostasis was intact. The patient received 10 mg of protamine IV. It is of note that all of the dissection and the anastomosis actually was quite tedious due to the borderline diminutive size of the basilic vein. The wound was then closed in layers with a deep layer of interrupted 3-0 Vicryl and then a running 4-0 Monocryl. Steri-Strips Telfa tape dressings applied. Sponge and instrument and needle counts were reported the surgeon correct. Blood loss was minimal. She had a 3+ left radial pulse at the completion no apparent complication she tolerated procedure well and was taken to the recovery area in satisfactory condition. Specimens none. Drains none. Blood loss minimal. Ruben Hu M.D., F.A.C.S. Type of Anesthesia:: Local MAC Anesthesiologist: Kaveh Marshall
[2018-09-20 12:58] VITALS: BP 101/54; BP 121/54; PULSE 59; RESP 16; TEMP 36.5; O2SAT 100
[2018-09-20 13:04] VITALS: BP 107/53; BP 121/54; PULSE 59; RESP 16; O2SAT 100
[2018-09-20 13:09] VITALS: BP 109/52; BP 121/54; PULSE 60; RESP 16; O2SAT 100
[2018-09-20 13:32] VITALS: BP 107/51; BP 121/54; PULSE 61; RESP 16; TEMP 36.6; O2SAT 100
[2018-09-20 14:50] VITALS: BP 121/54; BP 89/41; PULSE 59; RESP 16; TEMP 36.2; O2SAT 96
--- NOTE | 2018-09-20 14:58 | SUR.PHASEII ---
operative dressing on left arm changed per minimal drainage as ordered. DSD applied.
--- OUTSIDE RECORDS SUMMARY | 2018-11-25 00:01 | XMS RPT_ITS ---
:1965 Author Organization OHIP Support Name Relationship Address Phone D Unavailable Unavailable Unavailable LAWRENCEBOLIVARDANTE Unavailable [address] + [place] [address] D Unavailable Unavailable Unavailable LAWRENCEBOLIVAR MINORALD Unavailable [address] + [place] [address] D Unavailable Unavailable Unavailable LAWRENCE DANTE Unavailable [address] + [place] [address] D Unavailable Unavailable Unavailable LAWRENCE, DANTE Unavailable [address] + [place] [address] D Unavailable Unavailable Unavailable LAWRENCE, DANTE Unavailable [address] + [place] [address] BOLIVAR BRAVOALD Unavailable [address] + [phone] [place] [address] UE Unavailable Unavailable Unavailable REN BRAVOE Unavailable [address] + [place] [address] EUGENE BRAVO Unavailable [address] + [address] [place] [address] BOLIVAR BRAVOALD Unavailable [address] [place] [address] NOT GIVEN Unavailable Unavailable Unavailable RADHA BRAVOA Unavailable [address] + [address] [place] [address] BOLIVAR BRAVOALD Unavailable [address] [place] [address] NOT GIVEN Unavailable Unavailable Unavailable REN BRAVOE Unavailable [address] + [place] [address] JULIENNE BRAVO Unavailable [address] + [place] [address] EUGENE BRAVO Unavailable [address] + [address] [place] [address] DANTE BRAVO Unavailable [address] [place] [address] NOT GIVEN Unavailable Unavailable Unavailable REN BRAVOE Unavailable [address] + [place] [address] DANTE BRAVO Unavailable [address] + [place] [address] UE Unavailable Unavailable Unavailable REN BRAVOE Unavailable [address] + [place] [address] REN BRAVOE Unavailable [address] + [place] [address] LAWRENCE EUGENE Unavailable [address] + [address] [place] [address] DANTE BRAVO Unavailable [address] [place] [address] NOT GIVEN Unavailable Unavailable Unavailable LAWRENCE EUGENE Unavailable [address] + [address] [place] [address] DANTE BRAVO Unavailable [address] [place] [place] [address] NOT GIVEN Unavailable Unavailable Unavailable DANTE BRAVO Unavailable [address] + [place] [address] LAWRENCE, [place] Unavailable Unavailable + DANTE BRAVO Unavailable [address] + [place] [address] LAWRENCE, [place] Unavailable Unavailable + JULIENNE BRAVO Unavailable [address] + [place] [address] REN BRAVOE Unavailable [address] + [place] [address] BOLIVAR BRAVOALD Unavailable [address] + [place] [address] LAWRENCEBOLIVAR MINORALD Unavailable [address] + [place] [address] REN BRAVOE Unavailable [address] + [place] [address] Care Team Providers Name Role Phone IRENE, HÉCTOR Ramey Attending Unavailable ROE GIORDANO MD Attending Unavailable PHYSICIAN, NONE Primary Care Unavailable BROOKS RICO DO Consulting Unavailable PASQUALE VILLANUEVA, ROE Attending Unavailable PHYSICIAN, NONE Primary Care Unavailable ROE GIORDANO MD Attending Unavailable JAKOB SAMUEL MD Admitting Unavailable JAKOB SAMUEL MD Attending Unavailable JAKOB SAMUEL MD Primary Care Unavailable DENNY, SHARRON Consulting Unavailable PROVIDER, UNKNOWN Consulting Unavailable ASYOMAIRA DURANT Admitting Unavailable ASYOMAIRA DURANT Attending Unavailable ASFOYOMAIRA PACHECO Primary Care Unavailable LUZ MARINA, SHARRON Consulting Unavailable PROVIDER, UNKNOWN Consulting Unavailable ARTIE DOUGLAS Admitting Unavailable ARTIE DOUGLAS Attending Unavailable ARTIE DOUGLAS Primary Care Unavailable LUZ MARINA, SHARRON Consulting Unavailable LUZ MARINA, SHARRON Referring Unavailable PROVIDER, UNKNOWN Consulting Unavailable KADE DE LA TORRE DO Admitting Unavailable KADE DE LA TORRE DO Attending Unavailable DENNY, SHARRON Referring Unavailable KADE DE LA TORRE DO Primary Care Unavailable DENNY, SHARRON Consulting Unavailable PROVIDER, UNKNOWN Consulting Unavailable ELIGIO, DR TONI Curry Admitting Unavailable DEL VALLE, DR TONI Curry Attending Unavailable DENNY, SHARRON Referring Unavailable DEL VALLE, DR TONI Curry Primary Care Unavailable DENNY, SHARRON Consulting Unavailable PROVIDER, UNKNOWN Consulting Unavailable Lane Kirby Attending Unavailable Lane Kirby Referring Unavailable Denny, Maldonado Primary Care Unavailable Christinabul, Ruben Attending Unavailable Denny, Maldonado Referring Unavailable [...] Primary Care Unavailable Cebul, Ruben Consulting Unavailable LUZ MARINA, SHARRON Attending Unavailable LUZ MARINA, SHARRON Attending Unavailable IFEOMA SCHNEIDER (AGENCY SERVICE COORDINATOR) Attending Unavailable DENNY, SHARRON Referring Unavailable OLDER, IFEOMA (AGENCY SERVICE COORDINATOR) Attending Unavailable ASSAAD, MANAL H Referring Unavailable DENNY, SHARRON Referring Unavailable DENNY, SHARRON Attending Unavailable OLDER, IFEOMA (AGENCY SERVICE COORDINATOR) Referring Unavailable DENNY, SHARRON Attending Unavailable OLDER, IFEOMA (AGENCY SERVICE COORDINATOR) Referring Unavailable DENNY, SHARRON Referring Unavailable Irene, Héctor T Attending Unavailable Denny, Sharron. Primary Care Unavailable Irene, Héctor T Attending Unavailable Irene, Héctor T Attending Unavailable Asfoura, Jehad Y Admitting Unavailable Asfoura, Jehad Y Attending Unavailable Denny, Sharron. Primary Care Unavailable Irene, Héctor T Attending Unavailable Denny, Sharron. Primary Care Unavailable Irene, Héctor T Attending Unavailable Denny, Sharron. Primary Care Unavailable Irene, Héctor T Attending Unavailable Joanne, Anderson M Admitting Unavailable Joanne, Anderson M Attending Unavailable Denny, Sharron. Primary Care Unavailable Irene, Héctor T Attending Unavailable Denny, Sharron. 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 / [facility] I422(ICD-10) Hospital Repository 01/09/2018 Active Hyperkalemia / NA Active [facility] E87.5(ICD-10) Clinic Main [place] Repository 11/27/2017 Admitting Unknown / IRENEHÉCTOR Active [facility] diagnosis UNK(Unknown) T Hospital Repository 11/06/2017 Active Encounter for NA Active [facility] screening mammogram Clinic Main for malignant [place] neoplasm of breast / Repository Z12.31(ICD-10) 10/18/2017 Active Unknown / LUZ MARINA Active [facility] UNK(Unknown) [facility]ADO [facility] [place] Repository 07/07/2015 Active Type 2 diabetes NA Active [facility] mellitus with Clinic Main diabetic nephropathy [place] / E11.21(ICD-10) Repository 07/07/2015 Active Type 2 diabetes NA Active [facility] mellitus with Clinic Main hyperglycemia / [place] E11.65(ICD-10) Repository 10/16/2017 Active Other intermediate card tender NA Active [facility] (current) drug Clinic Main therapy / [place] Z79.899(ICD-10) Repository PROCEDURES PROCEDURES No Procedure Records FoundRESULTS RESULTS DISCHARGE INSTRUCTION Observed: 09/20/2018 Status: F Source: [place] 3:39 PM [facility] REPOSITORY [facility] Medical Records Department [address] [place] [address] Instructions for Home/Discharge Instructions 09/20/18 1237 MR#: [id number] Acct: [id number] Name: SANDY BRAVO Rep #: [id number] : 1965 53 From: Ruben Hu MD PCP: Maldonado Denny MD Status: DEP [facility] Discharge Diet: Renal Diet Discharge Activity: May [...] units SC QHS 09/13/18 Hydrocodone Bitart/Apap 5-325 [[place] 5MG-325MG] 1 tablet PO Q6H PRN PRN 3 Days #8 tablet 09/20/18 The following prescriptions were given: Hydrocodone Bitart/Apap 5-325 [[place] 5MG-325MG] 1 tablet PO Q6H PRN PRN 3 Days #8 tablet PRN Reason: Pain Primary Care Physician: Maldonado Denny MD [Primary Care Provider] - Test Results: Test results from this visit will be discussed in further detail at your follow-up appointment, if applicable. Please Follow Up With: Ruben Hu MD - [phone] When: Call to make an appointment for suture removal and follow up in 3 weeks. 09/20/18 1539 <Electronically signed by Ruben Hu MD> Date Ruben Hu MD CC: Maldonado Denny MD Signed OPERATIVE REPORT Observed: 09/20/2018 Status: F Source: [place] 12:43 PM [facility] REPOSITORY [facility] Medical Records Department [address] [place] [address] Operative Report 09/20/18 1239 MR#: [id number] Acct: [id number] Name: SANDY BRAVO Rep #: [id number] : 1965 53 From: Ruben Hu MD PCP: Maldonado Denny MD Status: REG [facility] [place] Location: [place] [address] Problem List (1) Problem with dialysis access [...] 09/20/2018 Status: F Source: [place] 10:18 AM [facility] REPOSITORY TYPE CODE TESTS RESULT OUT OF REFERENCE UNITS RANGE LAB L501.080 70-110 mg/dL High BEDSIDE GLU 227 Result Comment: MANAGEMENT OF PATIENT CARE PER NURSING PROTOCOL Performed By: #### L501.080 #### [facility] Point of Care [address] [place] [address] 12 LEAD ELECTROCARDIOGRAM Observed: 09/19/2018 Status: F Source: [place] 1:55 PM [facility] REPOSITORY [facility] Cardiovascular Services [address] [place] [address] 12 Lead EKG 09/18/18 1352 MR#: [id number] Acct: [id number] Name: SANDY BRAVO Rep #: [id number] : 1965 53 From: Donavon Braga MD Attending Dr: Ruben Hu MD Status: PRE SD Ordering Dr: Ruben Hu MD Date: 09/18/18 [place] [facility] Sex: F C Admitted: Test Reason : [...] ECG Confirmed by KATIUSKA VILLANUEVA, DONAVON ([id number]), editor magazine ABRIL LAM ([id number]) on 09/19/2018 1:55:01 PM Referred By: Ruben Hu Confirmed By:DONAVON BRAGA MD 09/19/18 1355 Date Donavon Braga MD CC: Ruben Hu MD; Maldonado Denny MD Signed CBC-COMPLETE BLOOD CNT Collected: 09/18/2018 Status: F Source: [place] NO DIFF 1:21 PM [facility] REPOSITORY TYPE CODE TESTS RESULT OUT OF [...] MPV 8.9 Performed By: #### L100.0500 #### [facility] [address] [place], [address] BASIC METABOLIC Collected: 09/18/2018 Status: F Source: [place] PROFILE (BMP) 1:21 PM [facility] REPOSITORY TYPE CODE TESTS RESULT OUT OF [...] GAP 11 Performed By: #### L500.2500 #### [facility] [address] [place], [address] SURGERY VISIT REPORT Observed: 08/23/2018 Status: F Source: [place] 10:40 AM [facility] REPOSITORY [facility] [address] [place] [address] OFFICE VISIT Date of Service: 08/23/18 MR#: [id number] Acct: [id number] Name: SANDY BRAVO Rep #: [id number] : 1965 Provider: Ruben Hu MD Age/Sex: 53/F Location: [facility] Status: Signed Intake Vital Signs08/23/18 Body Mass Index (BMI) 28.0 Intake Visit Reasons: discuss surgery Chief Complaint: discuss surgery/ vein mapping Legal Paraprofessional Required: No Is patient in pain?: No [...] no continuation of flow from the forearm [facility] Cardiovascular Services [address] [place] [address] AV Fistula/Dialysis Graft Scan 08/21/18 1344 MR#: [id number] Name: SANDY BRAVO #:[id number] : 1965 53From: Ruben Hu MD Attending [...] T 08/21/18 1750 Date Ruben Hu MD [facility] Cardiovascular Services [address] [place] [address] Saphenous Vein Mapping, Bil 08/21/18 1413 MR#: [id number] Name: SANDY BRAVO #:[id number] : 1965 53From: Ruben Hu MD Attending Dr: [facility]: Ruben Hu MDDate: 08/21/18 Location:CVSSex:FC [...] CC: Ruben Hu MD; Maldonado Denny MD MR#:[id number] Name: SANDY BRAVO #:[id number] : 1965 Provider:Ruben Hu MD Age/Sex: 53/F Location:[facility] Status:Signed Intake Vital Signs 08/14/18 Height 5 [...] air Intake Visit Reasons: 2nd Opinion Fistula Legal Paraprofessional Required: No Is patient in pain?: No [...] is because of this that the patient's steam pressure chamber operator Dr. Brand is referring for second opinion. [...] FISTULA/DIALYSIS GRAFT Observed: 08/21/2018 Status: F Source: [place] SCAN 5:51 PM [facility] REPOSITORY [facility] Cardiovascular Services [address] [place] [address] AV Fistula/Dialysis Graft Scan 08/21/18 1344 MR#: [id number] Acct: [id number] Name: SANDY BRAVO Rep #: [id number] : 1965 53 From: Ruben Hu MD [...] Date Dictated: 08/21/18 1344 Date Transcribed: 08/21/181749 Engineering Specialist Technician: Signed VENOUS DUPLEX UPPER Observed: 08/21/2018 Status: F Source: [place] EXTREMITY 5:45 PM [facility] REPOSITORY [facility] Cardiovascular Services [address] [place] [address] Saphenous Vein Mapping, Bilat 08/21/18 1413 MR#: [id number] Acct: [id number] Name: SANDY BRAVO Rep #: [id number] : 1965 53 From: Ruben Hu MD [...] Date Dictated: 08/21/18 1413 Date Transcribed: 08/21/181743 Engineering Specialist Technician: Signed PROGRESS Observed: 08/14/2018 Status: COMPLETED Source: [place] 9:45 PM [facility] [place] REPOSITORY O ID: [id number] Author: Maldonado Denny Service: (none) Author Type: Physician Type: Progress Notes Filed: 08/14/2018 10:01 PM Note Text: This note was created using Compression Kineticsriter. Subjective Sandy Bravo was here for follow [...] VISIT REPORT Observed: 08/14/2018 Status: F Source: [place] 4:24 PM [facility] REPOSITORY [facility] [address] [place] [address] OFFICE VISIT Date of Service: 08/14/18 MR#: [id number] Acct: [id number] Name: SANDY BRAVO Rep #: [id number] : 1965 Provider: Ruben Hu MD Age/Sex: 53/F Location: [facility] Status: Signed Intake Vital Signs08/14/18 Height 5 ft 3 in 08/14/18 Weight: 158 lb Intake Visit Reasons: 2nd Opinion Fistula Legal Paraprofessional Required: No Is patient in pain?: No [...] is because of this that the patient's steam pressure chamber operator Dr. Brand is referring for second opinion. [...] Appearance: average body habitus Orientation: alert, awake [facility] Head: normal to inspection Eyes General: appearance [...] Coding Level of Care Code Comprehensive,moderate 08/14/18 0058 <Electronically signed by Ruben Hu MD> Date Ruben Hu MD Cosigner Signature: Date (if applicable) CC: Maldonado Denny MD CNOV Observed: 08/14/2018 Status: COMPLETED Source: [place] 3:40 PM [facility] REPOSITORY Office Visit (INTMWS) SANDY BRAVO ([id number]) 1965 F Date Time Provider Department 08/14/18 3:40 PM MALDONADO DENNY INTChrisWS During your visit today, we recorded the following information about you: Temperature Pulse Respiration Blood pressure 97 degrees 64/minute 16/minute 124/56 Weight 72.1 kg Maldonado Denny MD 08/14/2018 3:53 PM Signed Mail glucose readings in 1 month. Maldonado Denny MD 08/14/2018 10:01 PM Signed This note was created using DalloulNW. Subjective Sandy Oneill Lawrence was here for [...] daily.Disp: 180 tabletRfl: 1 HEMOGLOBIN A1C (POC) [[id number]] Order #: [id number] #:[id number] insulin detemir U-100 (LEVEMIR FLEXTOUCH U-100 INSULN) [...] on 08/14/18 Observed: 07/24/2018 Status: F Source: [facility] CATH TIP 6:35 PM [facility] REPOSITORY Order Comment: [place]: M : PERMCATH REMOVED IN IR NO GROWTH AFTER 5 DAYS Performed By: #### M100.70606 #### [facility] [address] [place] [address] GLUCOSE METER Collected: 07/24/2018 Status: F Source: [facility] 3:46 PM [facility] REPOSITORY TYPE CODE TESTS RESULT OUT OF REFERENCE UNITS RANGE LAB L500.71141 85-125 MG/DL High GLUCOSE METER 150 CBC Collected: 07/24/2018 Status: F Source: [facility] 11:31 AM [facility] REPOSITORY Order Comment: [place]: M TYPE CODE TESTS RESULT OUT OF RANGE REFERENCE UNITS LAB L200.79401 4.5-11.0 K/CU MM Normal WBC 6.3 LAB L200.96150 3.90-5.30 M/CU MM Low RBC 3.24 LAB L200.06782 11.5-15.5 G/DL Low HGB 9.9 LAB L200.74727 35.0-47.0 % Low HCT 29.9 LAB L200.46564 80.0-99.0 fl Normal MCV 92.3 LAB L200.10207 32.0-36.0 GM/DL Normal MCHC 33.1 LAB L200.76610 11-14.5 Normal RDW 12.9 LAB L200.55397 9.4-12.4 Low MPV 9.2 LAB L200.01498 150-450 K/CU MM Normal PLT 204 LAB L200.54803 Less than 1 % Normal NRBC 0.0 Performed By: #### L200.38799 #### [facility] [place] [address] RENAL Collected: 07/24/2018 Status: F Source: [facility] 11:31 AM [facility] REPOSITORY Order Comment: [place]: TYPE CODE TESTS RESULT OUT OF RANGE REFERENCE UNITS LAB L500.13873 136-145 MMOL/L Normal NA 138 LAB L500.03643 3.5-5.1 MMOL/L Normal K 5.0 LAB L500.92059 98-107 MMOL/L Normal CL 101 LAB L500.14073 21-32 MMOL/L Normal CO2 26 LAB L500.89746 5-16 MMOL/L Normal AGAP 11 LAB L500.39360 70-100 MG/DL High GLU 188 Result Comment: 70-100- Normal Fasting; 100-125 Impaired Fasting; greater than 126 on more than one result- Diabetes. ADA guidelines. Results may be falsely elevated after the administration of Sulfapyridine. Results may be falsely depressed after the administration of Sulfasalazine. LAB L500.37296 7-26 MG/DL High BUN 44 LAB L500.48611 0.510-0.950 MG/DL High CREAT 5.180 Result Comment: Patients receiving either N-Acetylcysteine (NAC) or Metamizole prior to venipuncture, may have falsely depressed results. LAB L500.24243 15-24 Low BUN/CREA 9 LAB L500.95968 3.2-5.0 GM/DL Normal ALBUMIN 3.5 LAB L500.77735 8.5-10.1 MG/DL Normal CALCIUM TOTAL 9.0 LAB L500.86606 2.5-4.9 MG/DL Normal PHOS 4.2 Performed By: #### L500.49325, L500.77379 #### [facility] [address] [place] [address] GFR EST Collected: 07/24/2018 Status: F Source: [facility] 11:31 AM [facility] REPOSITORY Order Comment: [place]: M TYPE CODE TESTS RESULT OUT OF RANGE REFERENCE UNITS LAB L500.01878 ML/MIN Normal IF non-AFR 9 AMER LAB L500.00676 ML/MIN Normal IF 10 AMER Performed By: #### L500.46681, L500.82758 #### [facility] [address] [phone] [place] Observed: 07/24/2018 Status: UNK Source: [facility] 10:23 AM [facility] REPOSITORY DATE OF SERVICE: 07/24/2018 PREOPERATIVE [...] artery with 3 mm x 1.5 cm [employer] cutting balloon. 5. Angioplasty of proximal [...] heparinized the patient, exchanged out for a 4-Barbadian sheath over a Glidewire and managed to go up and over the anastomosis down the fistula. We then exchanged out for an 0.014 wire across the anastomosis. We then angioplastied with a 3 x 10 balloon in the radial artery with significant improvement, but multiple stenoses still remained; particularly resistant was just proximal to the anastomosis. [facility] PATIENT NAME: SANDY BRAVO [address] [facility] [address] [place] MEDICAL REC #: [id number] [place] [address] ADMIT DATE: DISCHARGE DATE: OPERATIVE REPORT ATTENDING [...] of complicating factors. We had used a 6-Barbadian sheath. We pulled after HCT normalized. The patient was getting over to Interventional Radiology to have her Perm-A-Cath exchanged. Héctor Bonilla MD JUAN [id number] SSI File#: [id number] Verified/Reviewed by 07/25/18 Adele DARBY [facility] PATIENT NAME: SANDY BRAVO [facility] [address] [place] MEDICAL REC #: [id number] [place] [address] ADMIT DATE: DISCHARGE DATE: OPERATIVE REPORT ATTENDING PHY: Héctor Bonilla MD REMOVAL PERMA CATH Observed: 07/24/2018 Status: F Source: [facility] 10:23 AM [facility] REPOSITORY PL CENTRAL TUNNEL NO PORT/PUMP, [...] right internal jugular dialysis catheter. Dictated by [employer] Professor: Romero Vergara MD Reviewed and Signed by: Jonn De Jesus MD ---- Electronic Signature on File ---- Signed By: Jonn De Jesus MD [email or web address] Dictated: 07/25/2018 8:11 AM Signed: 07/25/2018 8:39 AM Reported By: OJNN DE JESUS M.D. Signed By: JONN DE JESUS M.D. PL CENTRAL TUNNEL NO Observed: 07/24/2018 Status: F [facility]: [facility] 10:[address] [facility] [address] CENTRAL TUNNEL NO PORT/PUMP, REMOVAL PERMA [...] right internal jugular dialysis catheter. Dictated by [employer] Professor: Romero Vergara MD Reviewed and Signed by: Jonn De Jesus MD ---- Electronic Signature on File ---- Signed By: Jonn De Jesus MD [email or web address] Dictated: 07/25/2018 8:11 AM Signed: 07/25/2018 8:39 AM Reported By: JONN DE JESUS M.D. Signed By: JONN DE JESUS M.D. US GUIDE VASCULAR Observed: 07/24/2018 Status: F Source: [facility] 10:23 AM [facility] REPOSITORY PL CENTRAL TUNNEL NO PORT/PUMP, REMOVAL [...] right internal jugular dialysis catheter. Dictated by [employer] Professor: Romero Vergara MD Reviewed and Signed by: Jonn De Jesus MD ---- Electronic Signature on File ---- Signed By: Jonn De Jesus MD [email or web address] Dictated: 07/25/2018 8:11 AM Signed: 07/25/2018 8:39 AM Reported By: JONN DE JESUS M.D. Signed By: JONN DE JESUS M.D. FLUORO GUIDANCE Observed: 07/24/2018 Status: F Source: [facility] 10:[address] [facility] [address] CENTRAL TUNNEL NO PORT/PUMP, REMOVAL PERMA [...] right internal jugular dialysis catheter. Dictated by [employer] Professor: Romero Vergara MD Reviewed and Signed by: Jonn De Jesus MD ---- Electronic Signature on File ---- Signed By: Jonn De Jesus MD [email or web address] Dictated: 07/25/2018 8:11 AM Signed: 07/25/2018 8:39 AM Reported By: JONN DE JESUS M.D. Signed By: JONN DE JESUS M.D. Observed: 06/15/2018 Status: F Source: [facility] INFLUENZA VIRUS RAPID 10:40 AM [facility] A/B REPOSITORY INFLUENZA A NEGATIVE INFLUENZA B [...] UP TO THREE DAYS. Performed By: #### [id number] #### [facility],[address] [place] [address] CHEST 1 VIEW Observed: 06/15/2018 Status: F Source: [facility] [place] 9:23 AM [place] [address] Patient: SANDY BRAVO Phone#: : 1965 Age: 53 Gender: F Pt. Type: ER Account: [id number] Location: [facility] Ordering: TONI DEL VALLE Exam Date: 06/15/2018/9:09 Family Phys: MALDONADO DENNY Charge Code: 037827 Physician: [place] Order #: [id number] [id number] Dose#: PROCEDURE: X-RAY CHEST 1 VIEW COMPARISON: [facility], XR, CHEST 1 VIEW, 05/11/2018, 5:52. INDICATIONS: [...] EMERGENCY REPORT Observed: 06/15/2018 Status: F Source: [facility] 8:49 AM [facility] EMERGENCY ROOM REPORT NAME ACCOUNT SEX AGE ADMIT DISCHARGE PT MED. RECORD# NUMBER DATE DATE TYPE SANDY BRAVO [id number] F 53 06/15/18 06/15/18 3 [id number] ROOM: ER DATE OF : 1965 DICTATING [...] Del Valle MD 06/15/18 12:18 JOB #: [id number] Transcribed By: shaina 06/15/18 22:41 Electronically signed by: LUIS F Del Valle M.D. 06/21/18 07:12 Page 2 of 2 SANDY BRAVO Emergency Room Report CBC Collected: 06/07/2018 Status: F Source: [facility] 10:55 PM [facility] REPOSITORY TYPE CODE TESTS RESULT OUT OF [...] 7.10 x10EE3/U L Neut # 3.40 LAB [place] #(LOINC) 0.20 - 1.00 x10EE3/U L [place] # 0.40 LAB EO #(LOINC) 0.00 - 0.50 x10EE3/U L EO # 0.20 LAB [place] #(LOINC) 0.00 - 0.10 x10EE3/U L [place] # 0.10 LAB MANUAL DIFF(LOINC) MANUAL DIFF N/A LAB MORPHOLOGY(INC ) MORPHOLOGY N/A Result Comment: {CD] Performed By: #### [id number] #### [facility],[address] [place] [address] CMP WITH EGFR Collected: 06/07/2018 Status: F Source: [facility] 10:55 PM [facility] REPOSITORY TYPE CODE TESTS RESULT OUT OF [...] OF AGE AND OLDER. Performed By: #### [id number] #### [facility],[address] [place] [address] CT CHEST W/O CONTRAST Observed: 06/07/2018 Status: F Source: [facility] 10:53 PM [place] [address] Patient: SANDY RBAVO Phone#: : [phone] Age: 53 Gender: F Pt. Type: ER Account: [id number] Location: [facility] Ordering: KADE DE LA TORRE Exam Date: 06/07/2018/22:42 Family Phys: MALDONADO DENNY Charge Code: 289409 Physician: [place] Order #: [id number] DLP Dose#: PROCEDURE: CT CHEST WITHOUT CONTRAST COMPARISON: [facility], , CHEST 1 VIEW, 05/11/2018, 5:52. INDICATIONS: [...] 53 Gender: F Pt. Type: ER Account: [id number] Location: 052 Ordering: KADE DE LA TORRE Exam Date: 06/07/2018/22:42 Family Phys: MALDONADO DENNY Charge Code: 855988 Physician: Herk[place] Order #: [id number] DLP Dose#: OTHER: Negative. CONCLUSION: 1. Trace [...] EMERGENCY REPORT Observed: 06/07/2018 Status: F Source: [facility] 9:30 PM [facility] EMERGENCY ROOM REPORT NAME ACCOUNT SEX AGE ADMIT DISCHARGE PT MED. RECORD# NUMBER DATE DATE TYPE SANDY BRAVO [id number] F 53 06/07/18 06/08/18 3 [id number] ROOM: ER DATE OF : 1965 DICTATING PHYSICIAN: Kade De La Torre TIME SEEN: 10:15 p.m. CHIEF COMPLAINT/HISTORY OF PRESENT ILLNESS: This is a 53-year-old white female who has complaint of pain to the old port access that she has for dialysis. About 3 weeks ago, her steam pressure chamber operator had moved it from that site to [...] chills. PAST MEDICAL HISTORY: Renal failure, hypertension, cdu-bysfcug-ipyiccmwo diabetes. PAST SURGICAL HISTORY: Appendectomy, cholecystectomy, partial hysterectomy, tubal ligation, heart cath in the past. She was admitted within the past few weeks at [facility] for chest pain and did have a [...] No motor or sensory deficits noted. Hand invasive physician is strong and symmetric. Neurologic exam shows [...] Patient sees Dr. Garcia who is her steam pressure chamber operator. I do have a page in to him to discuss any further treatment of this site based on the results of the tests I have done here tonight. DIAGNOSIS: Postoperative pain at dialysis catheter removal site. PLAN/DISPOSITION: We did page Dr. Garcia's office and Dr. Lopez was legal receptionist. However, it is 1:30 a.m. and I [...] like to proceed. The phone number is [phone]. The patient was Page 2 of 3 SANDY BRAVO Emergency Room Report discharged in a clinically stable condition. Nurses notes were reviewed. Dictated By: Kade De La Torre DO 06/08/18 01:26 JOB #: [id number] Transcribed By: shaina 06/08/18 21:39 Electronically signed by: E-Sign: Dr. Kade De La Torer D.O. 06/15/18 05:58 Page 3 of 3 [facility] SANDY Oneill Emergency Room Report EMERGENCY REPORT Observed: 05/21/2018 Status: F [facility] 7:01 AM [facility] EMERGENCY ROOM REPORT NAME ACCOUNT SEX AGE ADMIT DISCHARGE PT MED. RECORD# NUMBER DATE DATE TYPE SANDY BRAVO [id number] F 53 05/11/18 05/11/18 3 [id number] ROOM: ER DATE OF : 1965 DICTATING [...] her. Advised transport to a hospital in [place]. She states she has been to [facility] previously. I attempted to reach Dr. Nunez but was unable to reach him. We did talk to the hospitalist at [facility] who accepted the patient. Dictated By: Toni Del Valle MD 05/11/18 09:33 JOB #: [id number] Transcribed By: shaina 05/11/18 22:03 Electronically signed by: LUIS F Del Valle M.D. 05/21/18 07:00 Page 1 of 1 SANDY BRAVO Emergency Room Report CBC W/DIFF Collected: 05/16/2018 Status: F Source: [facility] 6:46 AM [facility] REPOSITORY Order Comment: [place]: TYPE CODE TESTS RESULT OUT OF RANGE REFERENCE UNITS LAB L200.17764 4.5-11.0 K/CU MM WBC Normal 6.7 LAB L200.47111 3.90-5.30 M/CU MM Low RBC 3.43 LAB L200.49734 11.5-15.5 G/DL Low HGB 10.2 LAB L200.57021 35.0-47.0 % Low HCT 30.8 LAB L200.91298 80.0-99.0 fl MCV Normal 89.8 LAB L200.89492 32.0-36.0 GM/DL MCHC Normal 33.1 LAB L200.24907 11-14.5 RDW Normal 13.7 LAB L200.64733 9.4-12.4 Low MPV 9.3 LAB L200.20298 150-450 K/CU MM PLT Normal 184 LAB L200.86474 45-75 % NEUTROPHILS Normal % 63.9 LAB L200.91518 Less than 2 % IMMATURE Normal GRAN % 0.4 LAB L200.17421 20-40 % LYMPH % Normal 23.4 LAB L200.68505 2-10 % MONOCYTE % Normal 8.8 LAB L200.31079 0-5 % EOSINOPHIL Normal % 2.5 LAB L200.82109 0-2 % BASOPHIL % Normal 1.0 LAB L200.81150 2.0-8.3 K/CU MM NEUTROPHIL Normal ABS 4.30 LAB L200.49450 Less than 2 K/CU MM IMMATR GRAN Normal ABS 0.00 LAB L200.07414 0.9-4.4 K/CU MM LYMPH ABS Normal 1.60 LAB L200.52018 0.1-1.1 K/CU MM MONO ABS Normal 0.60 LAB L200.55069 0-0.5 K/CU MM EOS ABS Normal 0.20 LAB L200.46021 0-0.2 K/CU MM BASO ABS Normal 0.10 LAB L200.77222 Less than 1 % NRBC Normal 0.3 Performed By: #### L200.98188 #### [facility] [address] [place] [address] BMP Collected: 05/16/2018 Status: F Source: [facility] 6:46 AM [facility] REPOSITORY Order Comment: [place]: M TYPE CODE TESTS RESULT OUT OF RANGE REFERENCE UNITS LAB L500.15935 136-145 MMOL/L Low NA 135 LAB L500.39441 3.5-5.1 MMOL/L Normal K 4.2 LAB L500.55825 98-107 MMOL/L Normal CL 99 LAB L500.22179 21-32 MMOL/L Normal CO2 28 LAB L500.21199 5-16 MMOL/L Normal AGAP 8 LAB L500.59135 70-100 MG/DL High GLU 288 Result Comment: 70-100- Normal Fasting; 100-125 Impaired Fasting; greater than 126 on more than one result- Diabetes. ADA guidelines. Results may be falsely elevated after the administration of Sulfapyridine. Results may be falsely depressed after the administration of Sulfasalazine. LAB L500.14914 7-26 MG/DL High BUN 31 LAB L500.73787 0.510-0.950 MG/DL High CREAT 4.080 Result Comment: Patients receiving either N-Acetylcysteine (NAC) or Metamizole prior to venipuncture, may have falsely depressed results. LAB L500.53012 15-24 Low BUN/CREA 8 LAB L500.44300 8.5-10.1 MG/DL Normal CALCIUM TOTAL 9.5 Performed By: #### L500.69136, L500.84764 #### [facility] [address] [place] [address] GFR EST Collected: 05/16/2018 Status: F Source: [facility] 6:46 AM [facility] REPOSITORY Order Comment: [place]: M TYPE CODE TESTS RESULT OUT OF RANGE REFERENCE UNITS LAB L500.53304 ML/MIN Normal IF non-AFR 11 AMER LAB L500.00689 ML/MIN Normal IF 14 AMER Performed By: #### L500.39662, L500.49998 #### [facility] [address] [place] [address] GLUCOSE METER Collected: 05/15/2018 Status: F Source: [facility] 6:24 PM [facility] REPOSITORY TYPE CODE TESTS RESULT OUT OF REFERENCE UNITS RANGE LAB L500.18019 85-125 MG/DL High GLUCOSE METER 132 DISCH.SUM Observed: 05/15/2018 Status: UNK Source: [facility] 1:52 PM [facility] [place] REPOSITORY [facility] Patient Name: SANDY BRAVO [address] [facility] [address] Date of : [address] [place] [address] Unit Number: [id number] Discharge Summary Patient Status: ADM Laith Attending [...] nephrotic syndrome, diabetes mellitus was transferred from [facility]. Patient presented to [facility] with chest pain. Patient states it started yesterday and was on and off and this morning it progress it to the point it was like 10 over 10 as though a different sitting on her chest associated with some shortness of breath, nausea she did have increases 1 time no diaphoresis. Patient evaluated in the ER at [facility]. Troponins negative. Patient was transferred to [facility] for further cardiac evaluation. Currently patient denies any chest pain. ER physician from [facility] mentioned that chest pain responded to [...] Consults Cardiology, Nephrology Labs/Imaging Lab 72hr ([facility] 05/15/18 1104: Whole Bld Glucose 323 H [...] Weeks For Providers: Jc Otero MD [address] [facility] [address] [place] [id number] Condition: Stable Disposition Home Phys Discharge Time Incur(Min) 35 Disclaimer This dictation was created using voice recognition software. Phonetic and/or minor grammatical errors may exist. eSign Date and Time Anderson Rubio MD Verified/Reviewed by 05/15/18 1323 PROG.NEPH Observed: 05/15/2018 Status: UNK Source: [facility] 1:17 PM [facility] Patient Name: SANDY BRAVO [address] [facility] Date of : [address] [place] [address] Unit Number: [id number] Progress Note-Nephrology Patient Status: ADM Laith Attending Doctor: Anderson Rubio MD Service Date: 05/15/18 5117 Progress Note-Nephrology([facility]) Subjective Subjective: pt feels good only ambulating [...] 1-5 Units Lab Results: Lab 24hr (CBC/BMP [facility]) 05/15/18 1104: Whole Bld Glucose 323 H [...] yesterday 2. ESRD (end stage renal disease) [facility] is to have avf manipulation tomorrow - [...] GLUCOSE METER Collected: 05/15/2018 Status: F Source: [facility] 11:04 AM [facility] REPOSITORY TYPE CODE TESTS RESULT OUT OF REFERENCE UNITS RANGE LAB L500.30365 85-125 MG/DL High GLUCOSE METER 323 GLUCOSE METER Collected: 05/15/2018 Status: F Source: [facility] 7:35 AM [facility] REPOSITORY TYPE CODE TESTS RESULT OUT OF REFERENCE UNITS RANGE LAB L500.14984 85-125 MG/DL High GLUCOSE METER 241 CBC W/DIFF Collected: 05/15/2018 Status: F Source: [facility] 4:37 AM [facility] REPOSITORY Order Comment: [place]: M TYPE CODE TESTS RESULT OUT OF RANGE REFERENCE UNITS LAB L200.27086 4.5-11.0 K/CU MM WBC Normal 5.5 LAB L200.35370 3.90-5.30 M/CU MM Low RBC 2.72 LAB L200.51226 11.5-15.5 G/DL Low HGB 8.1 LAB L200.75714 35.0-47.0 % Low HCT 24.4 LAB L200.31982 80.0-99.0 fl MCV Normal 89.7 LAB L200.35404 32.0-36.0 GM/DL MCHC Normal 33.2 LAB L200.23208 11-14.5 RDW Normal 12.8 LAB L200.30126 9.4-12.4 Low MPV 9.1 LAB L200.30266 150-450 K/CU MM PLT Normal 163 LAB L200.17389 45-75 % NEUTROPHILS Normal % 56.9 LAB L200.52637 Less than 2 % IMMATURE Normal GRAN % 0.4 LAB L200.09990 20-40 % LYMPH % Normal 29.7 LAB L200.27000 2-10 % MONOCYTE % Normal 9.9 LAB L200.72036 0-5 % EOSINOPHIL Normal % 2.4 LAB L200.11718 0-2 % BASOPHIL % Normal 0.7 LAB L200.19215 2.0-8.3 K/CU MM NEUTROPHIL Normal ABS 3.10 LAB L200.17644 Less than 2 K/CU MM IMMATR GRAN Normal ABS 0.00 LAB L200.50203 0.9-4.4 K/CU MM LYMPH ABS Normal 1.60 LAB L200.70891 0.1-1.1 K/CU MM MONO ABS Normal 0.50 LAB L200.78176 0-0.5 K/CU MM EOS ABS Normal 0.10 LAB L200.06089 0-0.2 K/CU MM BASO ABS Normal 0.00 LAB L200.72572 Less than 1 % NRBC Normal 0.0 Performed By: #### L200.82402 #### [facility] [address] [place] [address] BMP Collected: 05/15/2018 Status: F Source: [facility] 4:37 AM [facility] REPOSITORY Order Comment: [place]: TYPE CODE TESTS RESULT OUT OF RANGE REFERENCE UNITS LAB L500.52682 136-145 MMOL/L Normal NA 137 LAB L500.68461 3.5-5.1 MMOL/L Normal K 4.0 LAB L500.15835 98-107 MMOL/L Normal CL 99 LAB L500.14104 21-32 MMOL/L Normal CO2 29 LAB L500.13737 5-16 MMOL/L Normal AGAP 8 LAB L500.28703 70-100 MG/DL High GLU 244 Result Comment: 70-100- Normal Fasting; 100-125 Impaired Fasting; greater than 126 on more than one result- Diabetes. ADA guidelines. Results may be falsely elevated after the administration of Sulfapyridine. Results may be falsely depressed after the administration of Sulfasalazine. LAB L500.94544 7-26 MG/DL High BUN 34 LAB L500.42883 0.510-0.950 MG/DL High CREAT 3.970 Result Comment: Patients receiving either N-Acetylcysteine (NAC) or Metamizole prior to venipuncture, may have falsely depressed results. LAB L500.44152 15-24 Low BUN/CREA 9 LAB L500.85989 8.5-10.1 MG/DL Normal CALCIUM TOTAL 8.8 Performed By: #### L500.11069, L500.88323 #### [facility] [place] [address] GFR EST Collected: 05/15/2018 Status: F Source: [facility] 4:37 AM [facility] REPOSITORY Order Comment: [place]: TYPE CODE TESTS RESULT OUT OF RANGE REFERENCE UNITS LAB L500.15849 ML/MIN Normal IF non-AFR 12 AMER LAB L500.69601 ML/MIN Normal IF 14 AMER Performed By: #### L500.18620, L500.53139 #### [facility] [address] [place] [address] TS Collected: 05/15/2018 Status: F Source: [facility] 4:37 AM [facility] REPOSITORY Order Comment: [place]: M Tranfuse Now? Y Non - Acute Hemorrhage Indication: Hgb<8 w ACS/EKG chg/CP Irradiated: N Washed: N Transfuse slowly @ 60mL/hr x15min, then increase to infuse: Over 4 Hours TYPE CODE TESTS RESULT OUT OF RANGE REFERENCE UNITS LAB B100.0400 A Normal BLOOD TYPE POSITIVE LAB B100.0680 Normal ANTIBODY NEGATIVE SCREEN RBC NO ACT Collected: 05/15/2018 Status: F Source: [facility] 4:37 AM [facility] REPOSITORY TYPE CODE TESTS RESULT OUT OF REFERENCE UNITS RANGE LAB U800.0005 RBC TRANSFUSED NO ACT PRODUCT: RBC NO ACTIVE BLEED COUNT: 1 GLUCOSE METER Collected: 05/14/2018 Status: F Source: [facility] 9:52 PM [facility] REPOSITORY TYPE CODE TESTS RESULT OUT OF REFERENCE UNITS RANGE LAB L500.08975 85-125 MG/DL High GLUCOSE METER 292 GLUCOSE METER Collected: 05/14/2018 Status: F Source: [facility] 4:20 PM [facility] REPOSITORY TYPE CODE TESTS RESULT OUT OF REFERENCE UNITS RANGE LAB L500.00157 85-125 MG/DL High GLUCOSE METER 206 PROG IMS Observed: 05/14/2018 Status: UNK Source: [facility] 2:00 PM [facility] REPOSITORY [facility] Patient Name: SANDY BRAVO [address] [facility] Date of : [address] [place] [id number] Unit Number: [id number] Progress Note-Hospitalist Patient Status: ADM Laith Attending [...] No distress Diagnostic Data: Lab 24hr (CBC/BMP [facility]) 05/14/18 1240: Whole Bld Glucose 158 H [...] GLUCOSE METER Collected: 05/14/2018 Status: F Source: [facility] 12:40 PM [facility] REPOSITORY TYPE CODE TESTS RESULT OUT OF REFERENCE UNITS RANGE LAB L500.89092 85-125 MG/DL High GLUCOSE METER 158 PROG.NEPH Observed: 05/14/2018 Status: UNK Source: [facility] 7:21 AM [facility] REPOSITORY [facility] Patient Name: SANDY BRAVO [address] [employer] Date of : [address] [place] [address] Unit Number: [id number] Progress Note-Nephrology Patient Status: ADM Laith Attending Doctor: Anderson Rubio MD Service Date: 05/14/18720 Progress Note-Nephrology([facility]) Subjective Subjective: no more chest pain through [...] 1-5 Units Lab Results: Lab 24hr (CBC/BMP [facility]) 05/14/18 0638: [Embedded Image Not Available] 05/14/18 [...] GLUCOSE METER Collected: 05/14/2018 Status: F Source: [facility] 7:06 AM [facility] REPOSITORY TYPE CODE TESTS RESULT OUT OF REFERENCE UNITS RANGE LAB L500.41010 85-125 MG/DL High GLUCOSE METER 284 K Collected: 05/14/2018 Status: F Source: [facility] 6:38 AM [facility] REPOSITORY Order Comment: [place]: M TYPE CODE TESTS RESULT OUT OF RANGE REFERENCE UNITS LAB L500.48512 3.5-5.1 MMOL/L High K 5.6 Performed By: #### L500.51291 #### [facility] [address] [place] [address] CBC W/DIFF Collected: 05/14/2018 Status: F Source: [facility] 4:53 AM [facility] REPOSITORY Order Comment: [place]: M TYPE CODE TESTS RESULT OUT OF RANGE REFERENCE UNITS LAB L200.33649 4.5-11.0 K/CU MM WBC Normal 7.1 LAB L200.01445 3.90-5.30 M/CU MM Low RBC 3.09 LAB L200.98029 11.5-15.5 G/DL Low HGB 9.1 LAB L200.68700 35.0-47.0 % Low HCT 27.4 LAB L200.37230 80.0-99.0 fl MCV Normal 88.7 LAB L200.33879 32.0-36.0 GM/DL MCHC Normal 33.2 LAB L200.18985 11-14.5 RDW Normal 12.7 LAB L200.28164 9.4-12.4 MPV Normal 9.4 LAB L200.65891 150-450 K/CU MM PLT Normal 188 LAB L200.78401 45-75 % NEUTROPHILS Normal % 50.4 LAB L200.36135 Less than 2 % IMMATURE Normal GRAN % 2.5 LAB L200.52747 20-40 % LYMPH % Normal 35.8 LAB L200.54315 2-10 % MONOCYTE % Normal 7.2 LAB L200.72827 0-5 % EOSINOPHIL Normal % 2.8 LAB L200.66019 0-2 % BASOPHIL % Normal 1.3 LAB L200.23946 2.0-8.3 K/CU MM NEUTROPHIL Normal ABS 3.60 LAB L200.16367 Less than 2 K/CU MM IMMATR GRAN Normal ABS 0.20 LAB L200.91116 0.9-4.4 K/CU MM LYMPH ABS Normal 2.50 LAB L200.16341 0.1-1.1 K/CU MM MONO ABS Normal 0.50 LAB L200.63608 0-0.5 K/CU MM EOS ABS Normal 0.20 LAB L200.10064 0-0.2 K/CU MM BASO ABS Normal 0.10 LAB L200.03359 Less than 1 % NRBC Normal 0.3 Performed By: #### L200.50334 #### [facility] [address] [place] [address] BMP Collected: 05/14/2018 Status: F Source: [facility] 4:53 AM [facility] REPOSITORY Order Comment: [place]: M TYPE CODE TESTS RESULT OUT OF RANGE REFERENCE UNITS LAB L500.41160 136-145 MMOL/L Normal NA 138 LAB L500.61557 3.5-5.1 MMOL/L High alert K 6.1 Result Comment: MODERATELY HEMOLYZED FINGERSTICK NURSE SAID TO MANAGER INSPECTION AND IF WANTED REDRAW THEY WOULD PUT NEW ORDER IN [facility] LAB L500.01734 98-107 MMOL/L Normal CL 103 LAB L500.69902 21-32 MMOL/L Normal CO2 23 LAB L500.33513 5-16 MMOL/L Normal AGAP 12 LAB L500.58036 70-100 MG/DL High GLU 234 Result Comment: 70-100- Normal Fasting; 100-125 Impaired Fasting; greater than 126 on more than one result- Diabetes. ADA guidelines. Results may be falsely elevated after the administration of Sulfapyridine. Results may be falsely depressed after the administration of Sulfasalazine. LAB L500.19769 7-26 MG/DL High BUN 56 LAB L500.86973 0.510-0.950 MG/DL High CREAT 5.950 Result Comment: Patients receiving either N-Acetylcysteine (NAC) or Metamizole prior to venipuncture, may have falsely depressed results. LAB L500.73150 15-24 Low BUN/CREA 9 LAB L500.15114 8.5-10.1 MG/DL Normal CALCIUM TOTAL 9.4 Performed By: #### L500.84952, L500.65353 #### [facility] [address] [place] [address] GFR EST Collected: 05/14/2018 Status: F Source: [facility] 4:53 AM [facility] REPOSITORY Order Comment: [place]: TYPE CODE TESTS RESULT OUT OF RANGE REFERENCE UNITS LAB L500.47461 ML/MIN Normal IF non-AFR 7 AMER LAB L500.22024 ML/MIN Normal IF 9 AMER Performed By: #### L500.25996, L500.40082 #### [facility] [address] [place] [address] GLUCOSE METER Collected: 05/13/2018 Status: F Source: [facility] 9:25 PM [facility] REPOSITORY TYPE CODE TESTS RESULT OUT OF REFERENCE UNITS RANGE LAB L500.53981 85-125 MG/DL High GLUCOSE METER 228 GLUCOSE METER Collected: 05/13/2018 Status: F Source: [facility] 4:35 PM [facility] REPOSITORY TYPE CODE TESTS RESULT OUT OF REFERENCE UNITS RANGE LAB L500.93227 85-125 MG/DL High GLUCOSE METER 254 PROG.NEPH Observed: 05/13/2018 Status: UNK Source: [facility] 2:31 PM [facility] REPOSIT[facility] Patient Name: SANDY BRAVO [address] [facility] Date of : [address] [place] [address] Unit Number: [id number] Progress Note-Nephrology Patient Status: ADM Laith Attending Doctor: Anderson Rubio MD Service Date: 05/13/18 1431 Progress Note-Nephrology([facility]) Subjective Subjective: pt feels good did not [...] 1-5 Units Lab Results: Lab 24hr (CBC/BMP [facility]) 05/13/18 1134: Whole Bld Glucose 263 H [...] PROG IMS Observed: 05/13/2018 Status: UNK Source: [facility] 11:36 AM [facility] [place] REPOSITORY [facility] Patient Name: SANDY BRAVO [address] [employer] [place] Date of : [address] [place] [address] Unit Number: [id number] Progress Note-Hospitalist Patient Status: ADM Laith Attending [...] No distress Diagnostic Data: Lab 24hr (CBC/BMP [facility]) 05/13/18 1134: Whole Bld Glucose 263 H [...] Assessment and plan Chest pain rule out PR. Patient chest pain-free On Nitropatch. Underwent cardiac [...] GLUCOSE METER Collected: 05/13/2018 Status: F Source: [facility] 11:34 AM [facility] REPOSITORY TYPE CODE TESTS RESULT OUT OF REFERENCE UNITS RANGE LAB L500.15258 85-125 MG/DL High GLUCOSE METER 263 GLUCOSE METER Collected: 05/13/2018 Status: F Source: [facility] 7[facility]43 AM [facility] TYPE CODE TESTS RESULT OUT OF REFERENCE UNITS RANGE LAB L500.80588 85-125 MG/DL High GLUCOSE METER 169 CBC W/DIFF Collected: 05/13/2018 Status: F Source: [facility] 6:47 AM [facility] REPOSITORY Order Comment: 0530 CBC CLOTTED; BMP IRON QNS THIS IS A REDRAW TYPE CODE TESTS RESULT OUT OF RANGE REFERENCE UNITS LAB L200.63707 4.5-11.0 K/CU MM WBC Normal 5.2 LAB L200.72909 3.90-5.30 M/CU MM Low RBC 3.06 LAB L200.63163 11.5-15.5 G/DL Low HGB 9.1 LAB L200.32622 35.0-47.0 % Low HCT 28.0 LAB L200.83214 80.0-99.0 fl MCV Normal 91.5 LAB L200.00357 32.0-36.0 GM/DL MCHC Normal 32.5 LAB L200.61466 11-14.5 RDW Normal 12.7 LAB L200.24312 9.4-12.4 Low MPV 9.1 LAB L200.27522 150-450 K/CU MM PLT Normal 190 LAB L200.11470 45-75 % NEUTROPHILS Normal % 55.5 LAB L200.33350 Less than 2 % IMMATURE Normal GRAN % 0.2 LAB L200.55784 20-40 % LYMPH % Normal 32.5 LAB L200.94582 2-10 % MONOCYTE % Normal 7.9 LAB L200.91470 0-5 % EOSINOPHIL Normal % 2.7 LAB L200.54573 0-2 % BASOPHIL % Normal 1.2 LAB L200.71990 2.0-8.3 K/CU MM NEUTROPHIL Normal ABS 2.90 LAB L200.99932 Less than 2 K/CU MM IMMATR GRAN Normal ABS 0.00 LAB L200.36886 0.9-4.4 K/CU MM LYMPH ABS Normal 1.70 LAB L200.19706 0.1-1.1 K/CU MM MONO ABS Normal 0.40 LAB L200.45272 0-0.5 K/CU MM EOS ABS Normal 0.10 LAB L200.83209 0-0.2 K/CU MM BASO ABS Normal 0.10 LAB L200.97922 Less than 1 % NRBC Normal 0.0 Performed By: #### L200.24312 #### [facility] [address] [place] [address] BMP Collected: 05/13/2018 Status: F Source: [facility] 6:47 AM [facility] REPOSITORY Order Comment: 0530 CBC CLOTTED; BMP IRON QNS THIS IS A REDRAW TYPE CODE TESTS RESULT OUT OF RANGE REFERENCE UNITS LAB L500.24714 136-145 MMOL/L Normal NA 140 LAB L500.39687 3.5-5.1 MMOL/L Normal K 5.0 LAB L500.85125 98-107 MMOL/L Normal CL 104 LAB L500.33211 21-32 MMOL/L Normal CO2 29 LAB L500.09736 5-16 MMOL/L Normal AGAP 8 LAB L500.32212 70-100 MG/DL High GLU 161 Result Comment: 70-100- Normal Fasting; 100-125 Impaired Fasting; greater than 126 on more than one result- Diabetes. ADA guidelines. Results may be falsely elevated after the administration of Sulfapyridine. Results may be falsely depressed after the administration of Sulfasalazine. LAB L500.50215 7-26 MG/DL High BUN 39 LAB L500.56734 0.510-0.950 MG/DL High CREAT 4.840 Result Comment: Patients receiving either N-Acetylcysteine (NAC) or Metamizole prior to venipuncture, may have falsely depressed results. LAB L500.67356 15-24 Low BUN/CREA 8 LAB L500.73074 8.5-10.1 MG/DL Normal CALCIUM TOTAL 9.1 Performed By: #### L500.62720, L500.03226, L500.18013 #### [facility] [address] [place] [address] GFR EST Collected: 05/13/2018 Status: F Source: [facility] 6:47 AM [facility] REPOSITORY Order Comment: 0530 CBC CLOTTED; BMP IRON QNS THIS IS A REDRAW TYPE CODE TESTS RESULT OUT OF RANGE REFERENCE UNITS LAB L500.91854 ML/MIN Normal IF non-AFR 9 AMER LAB L500.66301 ML/MIN Normal IF 11 AMER Performed By: #### L500.79762, L500.54378, L500.09635 #### [facility] [place] [address] IRON PANEL Collected: 05/13/2018 Status: F Source: [facility] 6:47 AM [facility] REPOS[facility] Order Comment: 0530 CBC CLOTTED; BMP IRON QNS THIS IS A REDRAW TYPE CODE TESTS RESULT OUT OF RANGE REFERENCE UNITS LAB L500.99900 50-170 UG/DL Normal IRON 90 Result Comment: Patients treated with metal-binding drugs (e.g.deferoxamine) may have depressed iron values, as chelated iron may not properly react in the Siemens iron assay. LAB L500.73645 221-481 UG/DL Normal TIBC 305 LAB L500.97828 22-44 % Normal IRON SAT 30 Performed By: #### L500.94572, L500.61340, L500.11084 #### [facility] [address] [place] [address] GLUCOSE METER Collected: 05/12/2018 Status: F Source: [facility] 9:51 PM [facility] REPOSITORY TYPE CODE TESTS RESULT OUT OF REFERENCE UNITS RANGE LAB L500.82481 85-125 MG/DL High GLUCOSE METER 294 GLUCOSE METER Collected: 05/12/2018 Status: F Source: [facility] 4:22 PM [facility] REPOSITORY TYPE CODE TESTS RESULT OUT OF RANGE REFERENCE UNITS LAB L500.05330 85-125 MG/DL Normal GLUCOSE METER 118 PROG.NEPH Observed: 05/12/2018 Status: UNK Source: [facility] 1:57 PM [facility] Patient Name: SANDY BRAVO [address] [facility] [address] Date of : [address] [address] Unit Number: [id number] Progress Note-Nephrology Patient Status: ADM Laith Attending Doctor: Anderson Rubio MD Service Date: 05/12/18 1357 Progress Note-Nephrology([facility]) Subjective Subjective: ctspt - developed cp on [...] Chest pain stoppoing dialysis and 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 2. ESRD (end stage renal disease) 3. Anemia 4. Hypertension Disclaimer This dictation was created using voice recognition software. Phonetic and/or minor grammatical errors may exist. eSign Date and Time Atrhur Ibrahim MD Verified/Reviewed by 05/12/18 1359 CONS.CARD Observed: 05/12/2018 Status: UNK Source: [facility] 1:25 PM CENTER [facility] Patient Name: SANDY BRAVO [address] [employer] Date of : [address] [address] Unit Number: [id number] Consultation-Cardiology Patient Status: ADM Laith Attending Doctor: Anderson Rubio MD Service Date: 05/12/18 1320 History of Present Illness Referring Physician Anderson Rubio MD Consulted Provider Jc Otero MD Source of Information Patient (medical record) Reason for Consult Abnormal stress Living Situation Home - Independent History of Present Illness Patient is a 53-year-old female end-stage renal disease on hemodialysis, nephrotic syndrome, diabetes mellitus was transferred from [facility] in hospital where she was evaluated [...] syncope. Troponins negative. Patient was transferred to [facility] for further cardiac evaluation. Currently patient denies any chest pain. ER physician from [facility] mentioned that chest pain responded to nitroglycerin. Patient had cardiac catheterization at [facility] many years ago with the no occlusive [...] pink. ENT: Oropharynx without rendess or swelling. Kerrick, moist mucous membranes. Neck: Supple without lymphadenopathy, [...] LAD, LVH with repolarization abnormality. Rate 102, IA 170, QTc 487. T wave inv I, aVL Conclusion / Plan Conclusion/Plan 1. Chest pain Patient is a 53-year-old female end-stage renal disease on hemodialysis, nephrotic syndrome, diabetes mellitus was transferred from [facility] where she was evaluated for chest [...] syncope. Troponins negative. Patient was transferred to [facility] for further cardiac evaluation. Currently patient still [...] MD Verified/Reviewed by 05/12/18 1351 Ge Augustin [facility] Observed: 05/12/2018 Status: UNK Source: [facility] 1:19 PM [facility]ENTER [facility] Patient Name: SANDY BRAVO [address] [employer] Date of : [address] [address] Unit Number: [id number] Progress Note-Hospitalist Patient Status: ADM Laith Attending Doctor: Anderson Rubio MD Service Date: 05/12/18 0574 Chief Complaint Chief Complaint Chest pain Subjective [...] No distress Diagnostic Data: Lab 24hr (CBC/BMP [facility]) 05/12/18 1142: Whole Bld Glucose 191 H [...] Assessment and plan Chest pain rule out PR. Patient has on and off chest pain. [...] Time Anderson Rubio MD Verified/Reviewed by 05/12/[address] [facility] PROG.NEPH Observed: 05/12/2018 Status: UNK Source: [facility] 11:52 AM [facility] Patient [facility] Date of : [address] [address] Unit Number: [id number] Progress Note-Nephrology Patient Status: ADM Laith Attending Doctor: Anderson Rubio MD Service Date: 05/12/18 1152 Progress Note-Nephrology([facility]) Subjective Subjective: pt seen after st had [...] GLUCOSE METER Collected: 05/12/2018 Status: F Source: [facility] 11:42 AM [facility] REPOSITORY TYPE CODE TESTS RESULT OUT OF REFERENCE UNITS RANGE LAB L500.56440 85-125 MG/DL High GLUCOSE METER 191 CBC W/DIFF Collected: 05/12/2018 Status: F Source: [facility] 4:15 AM [facility] REPOSITORY Order Comment: [place]: M TYPE CODE TESTS RESULT OUT OF RANGE REFERENCE UNITS LAB L200.47259 4.5-11.0 K/CU MM WBC Normal 5.3 LAB L200.81725 3.90-5.30 M/CU MM Low RBC 2.82 LAB L200.07693 11.5-15.5 G/DL Low HGB 8.3 LAB L200.42722 35.0-47.0 % Low HCT 26.2 LAB L200.60692 80.0-99.0 fl MCV Normal 92.9 LAB L200.92275 32.0-36.0 GM/DL Low MCHC 31.7 LAB L200.67713 11-14.5 RDW Normal 12.6 LAB L200.65070 9.4-12.4 Low MPV 9.3 LAB L200.26505 150-450 K/CU MM PLT Normal 193 LAB L200.14356 45-75 % NEUTROPHILS Normal % 50.2 LAB L200.21468 Less than 2 % IMMATURE Normal GRAN % 0.2 LAB L200.42150 20-40 % LYMPH % Normal 39.4 LAB L200.14847 2-10 % MONOCYTE % Normal 6.8 LAB L200.31707 0-5 % EOSINOPHIL Normal % 2.5 LAB L200.44486 0-2 % BASOPHIL % Normal 0.9 LAB L200.59041 2.0-8.3 K/CU MM NEUTROPHIL Normal ABS 2.70 LAB L200.36766 Less than 2 K/CU MM IMMATR GRAN Normal ABS 0.00 LAB L200.77986 0.9-4.4 K/CU MM LYMPH ABS Normal 2.10 LAB L200.78646 0.1-1.1 K/CU MM MONO ABS Normal 0.40 LAB L200.56828 0-0.5 K/CU MM EOS ABS Normal 0.10 LAB L200.15998 0-0.2 K/CU MM BASO ABS Normal 0.10 LAB L200.31288 Less than 1 % NRBC Normal 0.0 Performed By: #### L200.73686 #### [facility] [address] [place] [address] CKMB PROFILE Collected: 05/12/2018 Status: F Source: [facility] 4:15 AM [facility] REPOSITORY Order Comment: [place]: M TYPE CODE TESTS RESULT OUT OF RANGE REFERENCE UNITS LAB L500.71177 26-192 U/L High CK 251 Result Comment: Moderate Hemolysis, Result may be falsely increased. LAB L500.77456 0.5-3.6 NG/ML Normal CKMB 3.0 LAB L500.20210 0-2.5 Normal RI 1.2 Performed By: #### L500.11447, L550.41817 #### [facility] [address] [place] [address] TROPONIN I Collected: 05/12/2018 Status: F Source: [facility] 4:15 AM [facility] REPOSITORY Order Comment: [place]: M TYPE CODE TESTS RESULT OUT OF REFERENCE UNITS RANGE LAB L550.71075 0.000-0.045 NG/ML High TROPONIN I 0.047 Performed By: #### L500.07395, L550.86962 #### [facility] [address] [place] [address] RENAL Collected: 05/12/2018 Status: F Source: [facility] 4:15 AM [facility] REPOSITORY Order Comment: [place]: M TYPE CODE TESTS RESULT OUT OF RANGE REFERENCE UNITS LAB L500.21700 136-145 MMOL/L Normal NA 142 LAB L500.73484 3.5-5.1 MMOL/L Normal K 5.1 LAB L500.20546 98-107 MMOL/L Normal CL 104 LAB L500.02813 21-32 MMOL/L Normal CO2 27 LAB L500.33715 5-16 MMOL/L Normal AGAP 10 LAB L500.85867 70-100 MG/DL High GLU 145 Result Comment: 70-100- Normal Fasting; 100-125 Impaired Fasting; greater than 126 on more than one result- Diabetes. ADA guidelines. Results may be falsely elevated after the administration of Sulfapyridine. Results may be falsely depressed after the administration of Sulfasalazine. LAB L500.08756 7-26 MG/DL High BUN 56 LAB L500.86790 0.510-0.950 MG/DL High CREAT 6.290 Result Comment: Patients receiving either N-Acetylcysteine (NAC) or Metamizole prior to venipuncture, may have falsely depressed results. LAB L500.52381 15-24 Low BUN/CREA 9 LAB L500.32435 3.2-5.0 GM/DL Low ALBUMIN 2.6 LAB L500.12565 8.5-10.1 MG/DL Low CALCIUM TOTAL 8.4 LAB L500.44564 2.5-4.9 MG/DL High PHOS 8.5 Performed By: #### L500.87277, L500.19050, L500.29947 #### [facility] [address] [place] [address] GFR EST Collected: 05/12/2018 Status: F Source: [facility] 4:15 AM [facility] REPOSITORY Order Comment: [place]: M TYPE CODE TESTS RESULT OUT OF RANGE REFERENCE UNITS LAB L500.82743 ML/MIN Normal IF non-AFR 7 AMER LAB L500.89179 ML/MIN Normal IF 8 AMER Performed By: #### L500.85852, L500.62468, L500.71212 #### [facility] [address] [place] [address] IRON PANEL Collected: 05/12/2018 Status: F Source: [facility] 4:15 AM [facility] REPOSITORY Order Comment: [place]: M TYPE CODE TESTS RESULT OUT OF RANGE REFERENCE UNITS LAB L500.67317 50-170 UG/DL Normal IRON 76 Result Comment: Patients treated with metal-binding drugs (e.g.deferoxamine) may have depressed iron values, as chelated iron may not properly react in the Siemens iron assay. LAB L500.58276 221-481 UG/DL Normal TIBC 294 LAB L500.89963 22-44 % Normal IRON SAT 26 Performed By: #### L500.04711, L500.60231, L500.99955 #### [facility] [address] [place] [address] CKMB PROFILE Collected: 05/11/2018 Status: F Source: [facility] 11:14 PM [facility] REPOSITORY Order Comment: [place]: M TYPE CODE TESTS RESULT OUT OF RANGE REFERENCE UNITS LAB L500.96341 26-192 U/L Normal CK 49 LAB L500.07921 0.5-3.6 NG/ML Normal CKMB 2.4 LAB L500.44184 0-2.5 Normal RI TNP Performed By: #### L500.27934, L550.82964 #### [facility] [place] [address] TROPONIN I Collected: 05/11/2018 Status: F Source: [facility] 11:14 PM [facility] REPOSITORY Order Comment: [place]: M TYPE CODE TESTS RESULT OUT OF REFERENCE UNITS RANGE LAB L550.34529 0.000-0.045 NG/ML High TROPONIN I 0.066 Performed By: #### L500.60380, L550.99997 #### [facility] [address] [place] [address] GLUCOSE METER Collected: 05/11/2018 Status: F Source: [facility] 9:06 PM [facility] REPOSITORY TYPE CODE TESTS RESULT OUT OF REFERENCE UNITS RANGE LAB L500.80419 85-125 MG/DL High GLUCOSE METER 307 GLUCOSE METER Collected: 05/11/2018 Status: F Source: [facility] 6:03 PM [facility] TYPE CODE TESTS RESULT OUT OF REFERENCE UNITS RANGE LAB L500.51633 85-125 MG/DL High GLUCOSE METER 216 PROG.NEPH Observed: 05/11/2018 Status: UNK Source: [facility] 5:06 PM [facility] Patient Name: SANDY BRAVO [address] [facility] Date of : [address] [address] Unit Number: [id number] Progress Note-Nephrology Patient Status: ADM Laith Attending Doctor: Anderson Rubio MD Service Date: 05/11/18 1706 Progress Note-Nephrology([facility]) Subjective Subjective: [id number] Disclaimer This dictation was created using voice recognition software. Phonetic and/or minor grammatical errors may exist. eSign Date and Time Arthur Ibrahim MD Verified/Reviewed by 05/11/18 1706 CKMB PROFILE Collected: 05/11/2018 Status: F Source: [facility] 4:47 PM [facility] REPOSITORY Order Comment: [place]: M TYPE CODE TESTS RESULT OUT OF RANGE REFERENCE UNITS LAB L500.20701 26-192 U/L Normal CK 59 LAB L500.87361 0.5-3.6 NG/ML Normal CKMB 2.2 LAB L500.76231 0-2.5 Normal RI TNP Performed By: #### L500.55534, L550.83346 #### [facility] [place] [address] TROPONIN I Collected: 05/11/2018 Status: F Source: [facility] 4:47 PM [facility] REPOSITORY Order Comment: [place]: M TYPE CODE TESTS RESULT OUT OF REFERENCE UNITS RANGE LAB L550.98611 0.000-0.045 NG/ML High TROPONIN I 0.051 Performed By: #### L500.52234, L550.68619 #### [facility] [address] [place] [address] HP.IMS.ADM Observed: 05/11/2018 Status: UNK Source: [facility] 3:26 PM [facility] Patient Name: SANDY BRAVO [address] [facility] Date of : [address] [place], [place] [address] Unit Number: [id number] Admission-HandP Patient Status: ADM Laith Attending Doctor: Anderson Rubio MD Service Date: 05/11/18 1526 History of Present Illness Source of Information Patient Chief Complaint/Present Illness: Patient transferred from [facility] for chest pain evaluation History of Present Illness Patient is a 53-year-old female end-stage renal disease on hemodialysis, nephrotic syndrome, diabetes mellitus was transferred from [facility]. Patient presented to [facility] with chest pain. Patient states it started yesterday and was on and off and this morning it progress it to the point it was like 10 over 10 as though a different sitting on her chest associated with some shortness of breath, nausea she did have increases 1 time no diaphoresis. Patient evaluated in the ER at [facility]. Troponins negative. Patient was transferred to [facility] for further cardiac evaluation. Currently patient denies any chest pain. ER physician from [facility] mentioned that chest pain responded to [...] 125 MG/DL) 109 05/11 1423 Labs from [facility] WBC 6 hemoglobin 10 hematocrit 29.4 platelets 233 Sodium 141 potassium 4.7 chloride 102 bicarbonate 28 BUN 49 creatinine 5.3 AST 17 alkaline phosphatase 112 calcium 9.2 albumin 3.6 BNP 391 EKG single lead shows normal sinus rhythm Conclusion / Plan Conclusion 1. Chest pain Assessment and plan Chest pain rule out PR. Add patient will be admitted as observation. [...] GLUCOSE METER Collected: 05/11/2018 Status: F Source: [facility] 2:23 PM [facility] REPOSITORY TYPE CODE TESTS RESULT OUT OF RANGE REFERENCE UNITS LAB L500.54876 85-125 MG/DL Normal GLUCOSE METER 109 GLUCOSE METER Collected: 05/11/2018 Status: F Source: [facility] 1:28 PM [facility] REPOSITORY TYPE CODE TESTS RESULT OUT OF REFERENCE UNITS RANGE LAB L500.47540 85-125 MG/DL Low GLUCOSE METER 56 EKG Observed: 05/11/2018 Status: UNK Source: [facility] 1:01 PM [facility] REPOSITORY Procedure Date [...] PONCE MD M.D. DDandT: 05/11/18 1521 TDandT: [facility] PATIENT NAME: SANDY BRAVO RoshniJonathan Lizeth White MEDICAL REC #: [id number] [place] [address] ADMIT DATE: 05/11/18 DISCHARGE DATE: ATTENDING PHY: Anderson Rubio MD ELECTROCARDIOGRAM REPORT CLB cc: [facility] PATIENT NAME: SANDY BRAVO RoshniJonathan Lizeth White MEDICAL REC #: [id number] [place] [address] ADMIT DATE: 05/11/18 DISCHARGE DATE: ATTENDING PHY: Anderson Rubio MD ELECTROCARDIOGRAM REPORT CR Observed: 05/11/2018 Status: UNK Source: [facility] 1:01 PM [facility] [place] REPOSITORY DATE OF CONSULTATION: 05/11/2018 This is a 53-year-old white female with chronic kidney disease, 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 Lane [...] kidney failure. SOCIAL HISTORY: She lives in [place] with her , quit smoking 3 years ago. Does not drink any alcohol or use any other drugs. She does not work outside the home. ALLERGIES: CODEINE, LATEX, AND PENICILLINS. MEDICATIONS AT HOME: 1. Amlodipine. 2. Aspirin. 3. Atorvastatin. 4. Calcium. 5. Clonidine. 6. Folic acid. 7. Insulin. 8. Synthroid. 9. Metoprolol. REVIEW OF SYSTEMS: Please see history of present illness. PHYSICAL EXAMINATION: [facility] PATIENT NAME: SANDY BRAVO [address] [facility] [address] White MEDICAL REC #: [id number] [place] [address] ADMIT DATE: 05/11/18 DISCHARGE DATE: CONSULTATION REPORT [...] Blood pressure is well-controlled. Arthur Ibrahim MD [id number] [facility] File#: [id number] Verified/Reviewed by 05/14/18 Rukhsana MONROE [facility] PATIENT NAME: SANDY BRAVO [facility] [address] White MEDICAL REC #: [id number] [place] [address] ADMIT DATE: 05/11/18 DISCHARGE DATE: CONSULTATION REPORT ATTENDING PHY: Anderson Rubio MD CDLSTRESS Observed: 05/11/2018 Status: UNK Source: [facility] 1:01 PM [facility] INTERPRETING PHYSICIAN: Jc Otero MD ATTENDING PHYSICIAN: [...] stress dilatation was noted. Jc Otero MD [facility] PATIENT NAME: SANDY BRAVO [address] [facility] [address] White MEDICAL REC #: [id number] [place] [address] ADMIT DATE: 05/11/18 DISCHARGE DATE: 05/15/18 ATTENDING PHY: Anderson Rubio MD CARDIAC STRESS TEST REPORT [id number] [facility] File#: [id number] Verified/Reviewed by [id number] [facility] PATIENT NAME: SANDY BRAVO [facility] [address] White MEDICAL REC #: [id number] [place] [address] ADMIT DATE: 05/11/18 DISCHARGE DATE: 05/15/18 ATTENDING PHY: Anderson Rubio MD CARDIAC STRESS TEST REPORT CDLSTRESS Observed: 05/11/2018 Status: UNK Source: [facility] 1:01 PM [facility] REPOSITORY INTERPRETING PHYSICIAN: Jc Otero MD [...] Nuclear images are pending. Jc Otero MD /[id number] [facility] PATIENT NAME: SANDY BRAVO [facility] [address] White MEDICAL REC #: [id number] [place] [address] ADMIT DATE: 05/11/18 DISCHARGE DATE: 05/15/18 ATTENDING PHY: Anderson Rubio MD CARDIAC STRESS TEST REPORT [facility] File#: [id number] Verified/Reviewed by [id number] [facility] PATIENT NAME: SANDY BRAVO [facility] [address] White MEDICAL REC #: [id number] [place] [address] ADMIT DATE: 05/11/18 DISCHARGE DATE: 05/15/18 ATTENDING PHY: Anderson Rubio MD CARDIAC STRESS TEST REPORT CC Observed: 05/11/2018 Status: UNK Source: [facility] 1:01 PM [facility] [place] REPOSITORY DATE OF SERVICE: 05/14/2018 INDICATIONS: Unstable angina with positive stress test. PROCEDURE: Right femoral arteriotomy, right and left coronary cineangiogram, left ventriculogram, right femoral angiogram and a closure device insertion. The patient was brought to the catheterization lab in a fasting state. Both groins were prepped and draped in a sterile fashion. A 6-Barbadian sheath was then placed in the right [...] answer and also nitrates. Jc Otero MD /[id number] [facility] File#: [id number] [facility] PATIENT NAME: SANDY BRAVO Mai White MEDICAL REC #: [id number] [place] [address] ADMIT DATE: 05/11/18 DISCHARGE DATE: 05/15/18 CARDIAC CATH ATTENDING PHY: Anderson Rubio MD Verified/Reviewed by 05/17/18 1620 TASH [facility] PATIENT NAME: SANDY BRAVO RoshniJonathan Lizeth White MEDICAL REC #: [id number] [place] [address] ADMIT DATE: 05/11/18 DISCHARGE DATE: 05/15/18 CARDIAC CATH ATTENDING PHY: Anderson Rubio MD EKG Observed: 05/11/2018 Status: UNK Source: [facility] 1:01 PM [facility] REPOSITORY Procedure Date [...] PONCE MD M.D. DDandT: 05/12/18 1403 TDandT: [facility] PATIENT NAME: SANDY BRAVO [facility] [address] White MEDICAL REC #: [id number] [place] [address] ADMIT DATE: 05/11/18 DISCHARGE DATE: ATTENDING PHY: Anderson Rubio MD ELECTROCARDIOGRAM REPORT CLB cc: [facility] PATIENT NAME: SANDY BRAVO [facility] [address] White MEDICAL REC #: [id number] [place] [address] ADMIT DATE: 05/11/18 DISCHARGE DATE: ATTENDING PHY: Anderson Rubio MD ELECTROCARDIOGRAM REPORT CCCASE Observed: 05/11/2018 Status: UNK Source: [facility] 1:01 PM [facility] REPOSITORY Directions to view CARDIAC END OF CASE REPORT in a PDF format To view the Cardiac END OF CASE report you must go to Clinical Review (PWM/Physician Desktop) and - Select the patient - Select the Vist the report is on - Click the Globe on the bottom left and the PDF report will launch (PDF's can't be viewed in [employer] directly) [email or web address] TROPONIN Collected: 05/11/2018 Status: F [facility]57 AM [facility] REPOSITORY TYPE CODE TESTS RESULT OUT OF [...] such as heterophile antibodies). Performed By: #### [id number] #### [facility],[address] [place] [address] CBC Collected: 05/11/2018 Status: F [facility]50 [facility] REPOSITORY TYPE CODE TESTS RESULT OUT [...] 7.10 x10EE3/U L Neut # 3.40 LAB [place] #(LOINC) 0.20 - 1.00 x10EE3/U L [place] # 0.40 LAB EO #(LOINC) 0.00 - 0.50 x10EE3/U L EO # 0.20 LAB Baso #(LOINC) 0.00 - 0.10 x10EE3/U L Baso # 0.10 LAB MANUAL DIFF(LOINC) MANUAL DIFF N/A LAB MORPHOLOGY(LOINC ) MORPHOLOGY N/A Result Comment: {CD] Performed By: #### [id number] #### [place] [address] TROPONIN Collected: 05/11/2018 Status: F Source: [facility] 7:50 AM [facility] REPOSITORY TYPE CODE TESTS RESULT OUT OF [...] such as heterophile antibodies). Performed By: #### [id number] #### [place] [address] BNP (B-TYPE NATRIURETIC Collected: 05/11/2018 Status: F Source: [facility] PEPTIDE) 7:50 AM [facility] REPOSITORY TYPE CODE TESTS RESULT OUT OF RANGE REFERENCE UNITS LAB BNP(LOINC) 1 - 100 pg/ml High BNP 391 Performed By: #### [id number] #### [facility],[address] [place] [address] CMP WITH EGFR Collected: 05/11/2018 Status: F Source: [facility] 7:50 AM [facility] REPOSITORY TYPE CODE TESTS RESULT OUT OF [...] OF AGE AND OLDER. Performed By: #### [id number] #### [facility],[address] [place] [address] CHEST 1 VIEW Observed: 05/11/2018 Status: F [facility] [place] [address] Patient: SANDY BRAVO Phone#: : 1965 Age: 53 Gender: F Pt. Type: ER Account: [id number] Location: [facility] Ordering: ARTIE DOUGLAS Exam Date: 05/11/2018/5:52 Family Phys: MALDONADO DENNY Charge Code: [id number] Physician: [place] Order #: [id number] DLP Dose#: PROCEDURE: X-RAY CHEST 1 VIEW COMPARISON: [facility], XR, CHEST 1 VIEW, 01/14/2018, 13:30. INDICATIONS: [...] REPORT Observed: 05/11/2018 Status: F [facility] EMER[facility]ENCY ROOM REPORT NAME ACCOUNT SEX AGE ADMIT DISCHARGE PT MED. RECORD# NUMBER DATE DATE TYPE SANDY BRAVO [id number] F 53 05/11/18 05/11/18 3 [id number] ROOM: ER DATE OF : 1965 DICTATING [...] area. Patient states she gets her dialysis [facility]. Patient has not missed any dialysis sessions. States she has had bouts of chest pain before in the past that have been worked up negatively. 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 PAST MEDICAL HISTORY: End-stage renal disease, hypertension, [...] Artie Douglas DO 05/11/18 07:19 JOB #: [id number] Transcribed By: shaina 05/11/18 21:23 Electronically signed by: E-SIGN: Artie Douglas D.O. 06/20/18 21:07 Page 2 of 2 SANDY BRAVO Emergency Room Report PROGRESS Observed: 05/10/2018 Status: COMPLETED Source: [facility] 6:36 PM [facility] REPOSITORY HNO ID: [id number] Author: Maldonado Denny Service: (none) Author Type: Physician Type: Progress Notes Filed: 05/11/2018 8:16 PM Note Text: This note was created using CEL-SCIter. Subjective Sandy Bravo is a 53 year [...] MD CNOV Observed: 05/10/2018 Status: COMPLETED Source: [facility] 5:40 PM [facility] REPOSITORY Office Visit (INTMWS) SANDY BRAVO ([id number]) 1965 F Date Time Provider Department 05/10/18 5:40 PM MALDONADO DENNY INTMWS During your visit today, we recorded the following information about you: Pulse Respiration Blood pressure Weight 76/minute 12/minute 132/54 72.1 kg Maldonado Denny MD 05/11/2018 8:16 PM Signed This note was created using Compression Kineticsriter. Subjective Sandy Bravo is a 53 year [...] FECAL OCCULT BLOOD TEST [SQIFOBT] Order #: [id number] FUTURE cloNIDine HCl (CATAPRES) 0.3 mg tabletTake 1 tablet by mouth twice daily. Morning dose postponed to 3pm for dialysis days: Mon, Mon, Monday..Disp: Rfl: HEMOGLOBIN A1C (POC) [[id number]] Order #: [id number]. #:[id number] ALBUMIN/CREAT RATIO RND UR [SQUACR] Order #: [id number] FUTURE Prescriptions as of 05/10/2018 Sig: AMLODIPINE [...] GLUCOSE METER Collected: 05/01/2018 Status: F Source: [facility] 4:26 PM [facility] REPOSIT[facility] TYPE CODE TESTS RESULT OUT OF REFERENCE UNITS RANGE LAB L500.70742 85-125 MG/DL Low GLUCOSE METER 84 CBC Collected: 05/01/2018 Status: F Source: [facility] 11:38 AM [facility] REPOSITORY Order Comment: [place]: M TYPE CODE TESTS RESULT OUT OF RANGE REFERENCE UNITS LAB L200.03495 4.5-11.0 K/CU MM Normal WBC 6.6 LAB L200.46588 3.90-5.30 M/CU MM Low RBC 3.53 LAB L200.87326 11.5-15.5 G/DL Low HGB 10.5 LAB L200.86798 35.0-47.0 % Low HCT 32.0 LAB L200.82086 80.0-99.0 fl Normal MCV 90.7 LAB L200.40402 32.0-36.0 GM/DL Normal MCHC 32.8 LAB L200.14157 11-14.5 Normal RDW 12.7 LAB L200.15896 9.4-12.4 Normal MPV 9.4 LAB L200.89680 150-450 K/CU MM Normal PLT 202 LAB L200.33884 Less than 1 % Normal NRBC 0.0 Performed By: #### L200.67164 #### [facility] [address] [place] [address] RENAL Collected: 05/01/2018 Status: F Source: [facility] 11:37 AM [facility] REPOSITORY Order Comment: [place]: TYPE CODE TESTS RESULT OUT OF RANGE REFERENCE UNITS LAB L500.99737 136-145 MMOL/L Normal NA 138 LAB L500.47261 3.5-5.1 MMOL/L High K 5.2 LAB L500.14363 98-107 MMOL/L Normal CL 101 LAB L500.79957 21-32 MMOL/L Normal CO2 27 LAB L500.93714 5-16 MMOL/L Normal AGAP 10 LAB L500.49004 70-100 MG/DL High GLU 155 Result Comment: 70-100- Normal Fasting; 100-125 Impaired Fasting; greater than 126 on more than one result- Diabetes. ADA guidelines. Results may be falsely elevated after the administration of Sulfapyridine. Results may be falsely depressed after the administration of Sulfasalazine. LAB L500.03802 7-26 MG/DL High BUN 42 LAB L500.83074 0.510-0.950 MG/DL High CREAT 4.360 Result Comment: Patients receiving either N-Acetylcysteine (NAC) or Metamizole prior to venipuncture, may have falsely depressed results. LAB L500.53909 15-24 Low BUN/CREA 10 LAB L500.02610 3.2-5.0 GM/DL Low ALBUMIN 3.1 LAB L500.48817 8.5-10.1 MG/DL Normal CALCIUM TOTAL 9.3 LAB L500.78331 2.5-4.9 MG/DL High PHOS 5.1 Performed By: #### L500.56658, L500.71347 #### [facility] [place] [address] GFR EST Collected: 05/01/2018 Status: F Source: [facility] 11:37 AM [facility] REPOSITORY Order Comment: [place]: M TYPE CODE TESTS RESULT OUT OF RANGE REFERENCE UNITS LAB L500.06760 ML/MIN Normal IF non-AFR 11 AMER LAB L500.92782 ML/MIN Normal IF 13 AMER Performed By: #### L500.35905, L500.67758 #### [facility] [address] [place] [address] OR Observed: 05/01/2018 Status: UNK Source: [facility] 10:51 AM [facility] REPOSITORY DATE OF SERVICE: 05/01/2018 PREOPERATIVE [...] an antegrade fashion. Exchanged out for a 4-Barbadian sheath over a guidewire which was fashioned [...] hemostasis. The patient tolerated the procedure well. [facility] PATIENT NAME: SANDY BRAVO Dr. [facility] MEDICAL REC #: [id number] [place] [address] ADMIT DATE: DISCHARGE DATE: OPERATIVE REPORT ATTENDING PHY: Héctor Bonilla MD Héctor Bonilla MD JUAN [id number] SSI File#: [id number] Disclaimer - This document may contain phonetic, minor grammatical errors, or errors due to voice quality. Verified/Reviewed by 05/03/18 Stefan DARBY [facility] PATIENT NAME: SANDY BRAVO [facility] MEDICAL REC #: [id number] [place] [address] ADMIT DATE: DISCHARGE DATE: OPERATIVE REPORT ATTENDING PHY: Héctor Bonilla MD BRAIN W/WO CONTRAST Observed: 04/05/2018 Status: F Source: [facility] 1:30 PM [facility] REPOSITORY [facility] Imaging Services [facility] [place] [address] Brain W/WO Contrast MR#: [id number] Acct: [id number] Name: SANDY BRAVO Rep #: [id number] : 1965 F 53 From: Pennie Lam MD PCP: Maldonado Denny MD Status: REG CLI Study: Brain W/WO Contrast Date of Exam: 04/05/18 Exam# [id number] Ordering Dr: Lane Kirby MD STUDY: MRI [...] CC: Lane Kirby MD; Maldonado Denny MD Engineering Specialist Technician: Signed GLUCOSE METER Collected: 03/20/2018 Status: F Source: [facility] 3:50 PM [facility] REPOSITORY TYPE CODE TESTS RESULT OUT OF REFERENCE UNITS RANGE LAB L500.98807 85-125 MG/DL High GLUCOSE METER 193 CBC Collected: 03/20/2018 Status: F Source: [facility] 11:50 AM [facility] REPOSITORY Order Comment: [place]: M TYPE CODE TESTS RESULT OUT OF RANGE REFERENCE UNITS LAB L200.75521 4.5-11.0 K/CU MM Normal WBC 8.7 LAB L200.54282 3.90-5.30 M/CU MM Low RBC 3.72 LAB L200.51175 11.5-15.5 G/DL Low HGB 10.9 LAB L200.27042 35.0-47.0 % Low HCT 33.4 LAB L200.54190 80.0-99.0 fl Normal MCV 89.8 LAB L200.96998 32.0-36.0 GM/DL Normal MCHC 32.6 LAB L200.71005 11-14.5 Normal RDW 12.8 LAB L200.58467 9.4-12.4 Normal MPV 9.6 LAB L200.77956 150-450 K/CU MM Normal PLT 225 LAB L200.37606 Less than 1 % Normal NRBC 0.0 Performed By: #### L200.82535 #### [facility] [address] [place] [address] RENAL Collected: 03/20/2018 Status: F Source: [facility] 11:50 AM [facility] REPOSITORY Order Comment: [place]: M TYPE CODE TESTS RESULT OUT OF RANGE REFERENCE UNITS LAB L500.10781 136-145 MMOL/L Normal NA 139 LAB L500.37780 3.5-5.1 MMOL/L Normal K 4.7 LAB L500.57339 98-107 MMOL/L Normal CL 102 LAB L500.54149 21-32 MMOL/L Normal CO2 27 LAB L500.70045 5-16 MMOL/L Normal AGAP 10 LAB L500.73714 70-100 MG/DL High GLU 252 Result Comment: 70-100- Normal Fasting; 100-125 Impaired Fasting; greater than 126 on more than one result- Diabetes. ADA guidelines. Results may be falsely elevated after the administration of Sulfapyridine. Results may be falsely depressed after the administration of Sulfasalazine. LAB L500.88042 7-26 MG/DL High BUN 36 LAB L500.19099 0.510-0.950 MG/DL High CREAT 3.840 Result Comment: Patients receiving either N-Acetylcysteine (NAC) or Metamizole prior to venipuncture, may have falsely depressed results. LAB L500.34193 15-24 Low BUN/CREA 9 LAB L500.28791 3.2-5.0 GM/DL Low ALBUMIN 3.1 LAB L500.63349 8.5-10.1 MG/DL Low CALCIUM TOTAL 8.4 LAB L500.12824 2.5-4.9 MG/DL Normal PHOS 4.7 Performed By: #### L500.07993, L500.35100 #### [facility] [address] [place] [address] GFR EST Collected: 03/20/2018 Status: F Source: [facility] 11:50 AM [facility] REPOSITORY Order Comment: [place]: M TYPE CODE TESTS RESULT OUT OF RANGE REFERENCE UNITS LAB L500.75336 ML/MIN Normal IF non-AFR 12 AMER LAB L500.68400 ML/MIN Normal IF 15 AMER Performed By: #### L500.08891, L500.76089 #### [facility] [address] [place] [address] OR Observed: 03/20/2018 Status: UNK Source: [facility] 10:59 AM [facility] REPOSITORY DATE OF SERVICE: 03/20/2018 PREOPERATIVE [...] with a 2.5 mm x 120 mm [place] balloon x2. 4. Angioplasty of the left radial artery with a 3 mm x 120 mm [place] balloon x2. 5. Angioplasty of mid-left radial artery with a 3 mm x 2 cm [place] balloon and 3 mm x 4 cm Akil balloon. 6. Proximal anastomosis angioplasty of radiocephalic arteriovenous fistula with a 4 mm x 6 cm [place] balloon x2. COMPLICATIONS: None. ANESTHESIA: IV sedation, [...] technique, ultrasound- guided. Exchanged out for a 4-Barbadian sheath over a Glidewire. Angiogram of the [...] radial artery with a 2.5 x 120 [place] balloon to 12 atmospheres, 1-minute inflation x2, upsized to a 3 x 12 cm. [facility] PATIENT NAME: SANDY BRAVO [facility] [facility] MEDICAL REC #: [id number] [place] [address] ADMIT DATE: DISCHARGE DATE: OPERATIVE REPORT ATTENDING PHY: Héctor Bonilla MD Had 2 residual stenoses. Had to angioplasty those with shorter Akil balloons, a 3 x 2 and a 3 x 4. A little resistance in the mid-segment but otherwise got the distal stenosis. The proximal anastomosis was then addressed with a 4 x 6 [place] balloon across the anastomosis, then up in [...] in stable condition. Héctor Bonilla MD JUAN [id number] SSI File#: [id number] Verified/Reviewed by 03/21/18 Tanner DARBY [facility] PATIENT NAME: SANDY BRAVO [facility] [facility] MEDICAL REC #: [id number] [place] [address] ADMIT DATE: DISCHARGE DATE: OPERATIVE REPORT ATTENDING PHY: Héctor Bonilla MD PROGRESS Observed: 03/02/2018 Status: COMPLETED Source: [facility] 8:04 AM [facility] REPOSITORY HNO ID: [id number] Author: Maldonado Denny Service: (none) Author Type: Physician Type: Progress Notes Filed: 03/02/2018 8:15 AM Note Text: This note was created using CEL-SCIter. Subjective Sandy Bravo is a 53 year old female here with her spouse for follow up. She was admitted by her steam pressure chamber operator for anasarca February 13. She was started [...] Kidney Disease) Stage V Requiring Chronic Dialysis ([facility]) Current Outpatient Prescriptions: cloNIDine HCl (CATAPRES) 0.3 [...] MD CNOV Observed: 03/01/2018 Status: COMPLETED Source: [facility] 11:40 AM [facility] REPOSITORY Office Visit (INTMWS) SANDY BRAVO ([id number]) 1965 F Date Time Provider Department 03/01/18 11:40 AM MALDONADO DENNY INTChrisWS During your visit today, we recorded the following information about you: Temperature Pulse Respiration Blood pressure 97.2 degrees 56/minute 12/minute 94/50 Weight 67.6 kg Maldonado Denny MD 03/02/2018 8:15 AM Signed This note was created using Compression Kineticsriter. Subjective Sandy Bravo is a 53 year old female here with her spouse for follow up. She was admitted by her steam pressure chamber operator for anasarca February 13. She was started [...] Kidney Disease) Stage 4, Gfr 15-29 Ml/Min ([facility]ly [facility]) Ckd (Chronic Kidney Disease) Stage V Requiring Chronic Dialysis (Formerly [facility]) Current Outpatient Prescriptions: cloNIDine HCl (CATAPRES) 0.3 [...] Rfl: CONSULT TO ENT [9008] Order #: [id number]: 1 Prescriptions as of 03/01/2018 Sig: CLONIDINE [...] 03/02/18 PTAR Observed: 02/16/2018 Status: UNK Source: [facility] 1:31 PM [facility] REPOSITORY Physical Therapy Inpatient Evaluation Medical Diagnosis: CHRONIC KIDNEY DISEASE, ANASARCA WITH NEPHROTIC SYNDROME, S/P FISTULOGRAM L ARM AND RENOPLASTY 02/14/18 Therapy Diagnosis: Rank Code Description 1 R26 Abnormalities of gait and mobility Demographics: Age: 53Y Gender: Female Primary Language: Nigerien Preferred Language: Nigerien Referring Service/Team: Alejandra Nunez Past Medical History: PAST MEDICAL HISTORY: 1. [...] following her over the last year at [facility], came to the office today with significant edema and anasarca, weakness and tiredness, cannot function. We have been preparing her for dialysis treatment. We had AV fistula created by Dr. Bonilla with [facility], has not matured yet, and after working on her to get on the transplant list to combine kidney/pancreas transplant at [facility] yet to be done. In the office she was weak, tired, cannot stand. She gained a lot of weight and cannot function at home and we felt she was uremic, to require dialysis treatment. OBTAINED FROM MEDICAL CHARTING Date of Admission: 02/13/2018 2:26:00 PM Rehabilitation Precautions/Restrictions: standard precautions, fall risk [facility] PATIENT NAME: SANDY BRAVO [address] [facility] [address] [facility] MEDICAL REC #: [id number] [place] [address] ADMIT DATE: 02/13/18 SERVICE DATE: 02/16/18 Physical Therapy Assessment Report ATTENDING PHY: Yomaira Nunez MD SUBJECTIVE Prior Level of Functioning: Indoor [...] History: Marital Status: M Children: 1 Reside: [place] Employment Status: disability Recreational Activities/Hobbies: [employer], [employer] OBJECTIVE Cognitive Screen Responsiveness: Alert. Orientation: [...] Independent and within functional limits. Therapeutic/Functional Activities: [facility] PATIENT NAME: SANDY BRAVO [facility] [address] MEDICAL REC #: [id number] [place] [address] ADMIT DATE: 02/13/18 SERVICE DATE: 02/16/18 Physical Therapy Assessment Report ATTENDING PHY: Yomaira Nunez MD Bed Mobility: Not assessed. Transfers: Patient [...] Not applicable Motivation/Commitment to Therapy: Not applicable. [facility] PATIENT NAME: SANDY BRAVO [address] [facility] [address] [facility] MEDICAL REC #: [id number] [place] [address] ADMIT DATE: 02/13/18 SERVICE DATE: 02/16/18 Physical Therapy Assessment Report ATTENDING PHY: Yomaira Nunez MD Response to Evaluation: Pt demonstrates baseline [...] Impairment: Mobility: Walking and Moving Around. Modifier: L8547-CB (0% impaired, limited or restricted) Goal: Pt to ambulate independent 100' no assistive device to ensure safety upon discharge Goal Modifier: A4740-PK (0% impaired, limited or restricted) Discharge Status for Mobility: Walking and Moving Around: Resolved Functional Impairment Discharge Modifier: K2319-NW (0% impaired, limited or restricted) Pt amb [...] contact the Acute Therapy Department at extension [phone] Location of Patient at End of Therapy Session: In chair, call light within reach Services: Total Billed: 0 minutes (Timed: 0, Untimed: 0) 0.00 Untimed: [42974] PT-EVALUATION LOW COMPLEXITY 0.00 Untimed: [] PT Evaluation ORDER [facility] PATIENT NAME: SANDY BRAVO [facility] MEDICAL REC #: [id number] [place] [address] ADMIT DATE: 02/13/18 SERVICE DATE: 02/16/18 Physical Therapy Assessment Report ATTENDING PHY: Yomaira Nunez MD 0.00 Untimed: [G8978] PT-Mobility: Walking and Moving Around-CH 0.00 Untimed: [G8979] WG-Rnfh-Ppsazzot: Walking and Moving Around-CH 0.00 Untimed: [G8980] PT-DC:Mobility: Walking and Moving Around-CH Signed by: Juana Tony, 02/16/2018 15:04:39 [facility] PATIENT NAME: SANDY BRAVO [facility] MEDICAL REC #: [id number] [place] [address] ADMIT DATE: 02/13/18 SERVICE DATE: 02/16/18 Physical Therapy Assessment Report ATTENDING PHY: Yomaira Nunez MD Observed: 02/16/2018 Status: UNK Source: [facility] 11:56 AM [facility] [place] REPOSITORY Occupational Therapy Inpatient Evaluation Medical Diagnosis: 1. Chronic kidney disease stage 5, uremic symptoms. 2. Anasarca with nephrotic syndrome. OCCUPATIONAL PROFILE AND HISTORY Therapy Diagnosis: Rank Code Description 1 Z74.0 Reduced mobility 2 Z74.1 Need for assistance with personal care Demographics: Age: 53Y Gender: Female Primary Language: Nigerien Preferred Language: Nigerien Referring Service/Team: Medicine Past Medical History: PAST [...] following her over the last year at [facility], came to the office today with significant edema and anasarca, weakness and tiredness, cannot function. We have been preparing her for dialysis treatment. We had AV fistula created by Dr. Bonilla with [facility], has not matured yet, and after working on her to get on the transplant list to combine kidney/pancreas transplant at [facility] yet to be done. In the office she was weak, tired, cannot stand. She gained a lot of weight and cannot function at home and we [facility] PATIENT NAME: SANDY BRAVO K [address] [facility] [address] [place] MEDICAL REC #: [id number] [place] [address] ADMIT DATE: 02/13/18 SERVICE DATE: 02/16/18 Occupational Therapy Assessment ATTENDING HANS: Yomaira Nunez MD felt she was uremic, to require [...] Social History: Children: 1 Reside: dtr in [facility] Employment Status: disability Recreational Activities/Hobbies: hiking OBJECTIVE/OCCUPATIONAL PERFORMANCE Activities of Daily Living Current Status Previous Status ADLs Feeding Independent - Grooming Independent - Bathing-UE Independent - Bathing-LE Independent - Dressing-UE Independent - Dressing-LE Independent - Toileting Independent - [facility] PATIENT NAME: SANDY BRAVO [address] [facility] [address] [facility] MEDICAL REC #: [id number] [place] [address] ADMIT DATE: 02/13/18 SERVICE DATE: 02/16/18 Occupational Therapy Assessment ATTENDING PHY: Yomaira Nunez MD [facility] Daily Activities: Putting On/Taking Off Lower Body Clothing: No help needed Bathing:: No help needed Toileting: No help needed Putting On/Taking Off Upper Body Clothing: No help needed Grooming: No help needed Eating a Meal: No help needed Raw Score = 24 , AM-[facility] t-Scale Score = 57.54 and G-Code Modifier [...] Lower Extremity Function: grossly WFL Vision: glasses [facility] PATIENT NAME: SANDY BRAVO [facility] [address] [facility] MEDICAL REC #: [id number] [place] [address] ADMIT DATE: 02/13/18 SERVICE DATE: 02/16/18 Occupational Therapy Assessment ATTENDING PHY: Yomaira Nunez MD Cognition: Within functional limits. Perceptual Skills: [...] and Goals: Functional Impairment: Self Care Modifier: P9994-MR (0% impaired, limited or restricted) Goal: Goal Modifier: X5167-XP (0% impaired, limited or restricted) Discharge Status for Self Care: Resolved Functional Impairment Discharge Modifier: V3672-IE (0% impaired, limited or restricted) Treatment Goals: Not applicable. PLAN Treatment Frequency, Duration and Interventions: Occupational Therapy services [facility] PATIENT NAME: [facility] MEDICAL REC #: [id number] [place] [address] ADMIT DATE: 02/13/18 SERVICE DATE: 02/16/18 Occupational Therapy Assessment ATTENDING HANS: Yomaira Nunez MD are discontinued at this time secondary [...] contact the Acute Therapy Department at extension [phone] CARE WILL BE TRANSFERRED TO THE (CHOICE OF ACUTE OR REHAB) OCCUPATIONAL THERAPIST Communication to Nursing: Toilet Transfers: MOD I Location of Patient at End of Therapy Session: In chair, call light within reach Services: Total Billed: 0 minutes (Timed: 0, Untimed: 0) 0.00 Untimed: [96583] OT-EVALUATION LOW COMPLEXITY 0.00 Untimed: [] OT Evaluation ORDER 0.00 Untimed: [G8987] OT-Self Care-CH 0.00 Untimed: [G8988] XP-Fglm-Cevv Care-CH 0.00 Untimed: [G8989] OT-DC-Self Care-CH Signed by: ELLA Willis 02/16/2018 15:03:49 [facility] PATIENT NAME: SANDY BRAVO [address] [facility] [address] [facility] MEDICAL REC #: [id number] [place] [address] ADMIT DATE: 02/13/18 SERVICE DATE: 02/16/18 Occupational Therapy Assessment ATTENDING HANS: Yomaira Nunez MD GLUCOSE METER Collected: 02/16/2018 Status: F Source: [facility] 11:41 AM [facility] REPOSITORY TYPE CODE TESTS RESULT OUT OF REFERENCE UNITS RANGE LAB L500.74011 85-125 MG/DL High GLUCOSE METER 210 PTPN Observed: 02/16/2018 Status: UNK Source: [facility] 10:40 AM [facility] REPOSITORY Physical Therapy Inpatient Missed Visit Note Attempted to visit patient for therapy, but was unable for the following reasons: Patient having or awaiting dialysis. Return Plan: Will return as soon as possible for another attempt. If there are any questions regarding this service, please contact the Acute Therapy Department at extension [phone] Signed by: Juana Tony, 02/16/2018 10:40:36 [facility] PATIENT NAME: SANDY BRAVO [facility] [address] [facility] MEDICAL REC #: [id number] [place] [address] ADMIT DATE: 02/13/18 SERVICE DATE: 02/16/18 Physical Therapy Progress Note ATTENDING PHY: Yomaira Nunez MD GLUCOSE METER Collected: 02/16/2018 Status: F Source: [facility] 8:02 AM [facility] REPOSITORY TYPE CODE TESTS RESULT OUT OF REFERENCE UNITS RANGE LAB L500.54678 85-125 MG/DL High GLUCOSE METER 330 GLUCOSE METER Collected: 02/15/2018 Status: F Source: [facility] 4:12 PM [facility] REPOSITORY TYPE CODE TESTS RESULT OUT OF REFERENCE UNITS RANGE LAB L500.79130 85-125 MG/DL High GLUCOSE METER 198 GLUCOSE METER Collected: 02/15/2018 Status: F Source: [facility] 11:30 AM [facility] REPOSITORY TYPE CODE TESTS RESULT OUT OF REFERENCE UNITS RANGE LAB L500.89271 85-125 MG/DL High GLUCOSE METER 137 GLUCOSE METER Collected: 02/15/2018 Status: F Source: [facility] 8:02 AM [facility] REPOSITORY TYPE CODE TESTS RESULT OUT OF REFERENCE UNITS RANGE LAB L500.02175 85-125 MG/DL High GLUCOSE METER 281 CBC W/DIFF Collected: 02/15/2018 Status: F Source: [facility] 5[facility]09 AM [facility] Order Comment: [place]: M TYPE CODE TESTS RESULT OUT OF RANGE REFERENCE UNITS LAB L200.24811 4.5-11.0 K/CU MM Low WBC 4.3 LAB L200.61832 3.90-5.30 M/CU MM Low RBC 3.53 LAB L200.34066 11.5-15.5 G/DL Low HGB 10.2 LAB L200.61085 35.0-47.0 % Low HCT 30.1 LAB L200.35799 80.0-99.0 fl MCV Normal 85.3 LAB L200.98560 32.0-36.0 GM/DL MCHC Normal 33.9 LAB L200.33253 11-14.5 RDW Normal 13.1 LAB L200.92191 9.4-12.4 MPV Normal 9.4 LAB L200.52482 150-450 K/CU MM Low PLT 106 LAB L200.69874 45-75 % NEUTROPHILS Normal % 59.8 LAB L200.14143 Less than 2 % IMMATURE Normal GRAN % 0.5 LAB L200.21824 20-40 % LYMPH % Normal 27.9 LAB L200.03790 2-10 % MONOCYTE % Normal 8.8 LAB L200.85191 0-5 % EOSINOPHIL Normal % 2.1 LAB L200.97924 0-2 % BASOPHIL % Normal 0.9 LAB L200.54911 2.0-8.3 K/CU MM NEUTROPHIL Normal ABS 2.60 LAB L200.38002 Less than 2 K/CU MM IMMATR GRAN Normal ABS 0.00 LAB L200.07192 0.9-4.4 K/CU MM LYMPH ABS Normal 1.20 LAB L200.31095 0.1-1.1 K/CU MM MONO ABS Normal 0.40 LAB L200.45060 0-0.5 K/CU MM EOS ABS Normal 0.10 LAB L200.95025 0-0.2 K/CU MM BASO ABS Normal 0.00 LAB L200.26089 Less than 1 % NRBC Normal 0.0 Performed By: #### L200.88077 #### [facility] [place] [address] BMP Collected: 02/15/2018 Status: F Source: [facility] 5:09 AM [facility] REPOSITORY Order Comment: [place]: TYPE CODE TESTS RESULT OUT OF RANGE REFERENCE UNITS LAB L500.22517 136-145 MMOL/L Normal NA 140 LAB L500.67255 3.5-5.1 MMOL/L Normal K 4.3 LAB L500.78672 98-107 MMOL/L Normal CL 106 LAB L500.03813 21-32 MMOL/L Normal CO2 23 LAB L500.75667 5-16 MMOL/L Normal AGAP 11 LAB L500.71223 70-100 MG/DL High GLU 232 Result Comment: 70-100- Normal Fasting; 100-125 Impaired Fasting; greater than 126 on more than one result- Diabetes. ADA guidelines. Results may be falsely elevated after the administration of Sulfapyridine. Results may be falsely depressed after the administration of Sulfasalazine. LAB L500.13081 7-26 MG/DL High BUN 31 LAB L500.11201 0.510-0.950 MG/DL High CREAT 3.870 Result Comment: Patients receiving either N-Acetylcysteine (NAC) or Metamizole prior to venipuncture, may have falsely depressed results. LAB L500.58224 15-24 Low BUN/CREA 8 LAB L500.21395 8.5-10.1 MG/DL Low CALCIUM TOTAL 7.9 Performed By: #### L500.25584, L500.13971 #### [facility] [place] [address] GFR EST Collected: 02/15/2018 Status: F Source: [facility] 5:09 AM [facility] REPOSITORY Order Comment: [place]: M TYPE CODE TESTS RESULT OUT OF RANGE REFERENCE UNITS LAB L500.95730 ML/MIN Normal IF non-AFR 12 AMER LAB L500.48511 ML/MIN Normal IF 15 AMER Performed By: #### L500.86434, L500.07794 #### [facility] [place] [address] GLUCOSE METER Collected: 02/14/2018 Status: F Source: [facility] 7:13 PM [facility] REPOSITORY TYPE CODE TESTS RESULT OUT OF REFERENCE UNITS RANGE LAB L500.69549 85-125 MG/DL High GLUCOSE METER 144 GLUCOSE METER Collected: 02/14/2018 Status: F Source: [facility] 2:42 PM [facility] REPOSITORY TYPE CODE TESTS RESULT OUT OF RANGE REFERENCE UNITS LAB L500.84617 85-125 MG/DL Normal GLUCOSE METER 124 IRON PANEL Collected: 02/14/2018 Status: F Source: [facility] 2:08 PM [facility] REPOSITORY Order Comment: [place]: M TYPE CODE TESTS RESULT OUT OF RANGE REFERENCE UNITS LAB L500.76275 50-170 UG/DL Normal IRON 99 Result Comment: Patients treated with metal-binding drugs (e.g.deferoxamine) may have depressed iron values, as chelated iron may not properly react in the Siemens iron assay. LAB L500.39358 221-481 UG/DL Normal TIBC 294 LAB L500.13046 22-44 % Normal IRON SAT 34 Performed By: #### L500.76534, L500.96196 #### [facility] [address] [place] [address] FERR Collected: 02/14/2018 Status: F Source: [facility] 2:08 PM [facility] REPOSITORY Order Comment: [place]: M TYPE CODE TESTS RESULT OUT OF RANGE REFERENCE UNITS LAB L500.62952 8.0-307.0 NG/ML Normal FERR 164.5 Performed By: #### L500.81492, L500.68529 #### [facility] [address] [place] [address] GLUCOSE METER Collected: 02/14/2018 Status: F Source: [facility] 11:12 AM [facility] TYPE CODE TESTS RESULT OUT OF RANGE REFERENCE UNITS LAB L500.52353 85-125 MG/DL Normal GLUCOSE METER 115 VLAR Observed: 02/14/2018 Status: UNK Source: [facility] 7:55 AM [facility] VASCULAR MEDSTREAMING REPORT Patient: SANDY BRAVO Account [id number] Ordering Phy: MR: [id number] Reason for Visit: ESRD,[facility] DIALYSIS AND ANASARCA [...] and outflow is 4 mm. CC: Yomaira Nunez MD Abbreviated Final Report. Full Report is available via link to [employer] in PCI under [facility] Lab Image Viewer. [facility] PATIENT NAME: SANDY BRAVO [address] [place] MEDICAL REC #: [id number] [place] [address] ADMIT DATE: 02/13/18 DISCHARGE DATE: NON-INVASIVE ARTERIAL REPORT ATTENDING PHY: Yomaira Nunez MD Electronically Signed by: Cole Lam MD Esign Date: 02/15/18 GLUCOSE METER Collected: 02/14/2018 Status: F Source: [facility] 7:40 AM [facility] REPOSITORY TYPE CODE TESTS RESULT OUT OF REFERENCE UNITS RANGE LAB L500.92276 85-125 MG/DL High GLUCOSE METER 255 GLUCOSE METER Collected: 02/13/2018 Status: F Source: [facility] 9:11 PM [facility] REPOSITORY TYPE CODE TESTS RESULT OUT OF REFERENCE UNITS RANGE LAB L500.94588 85-125 MG/DL High GLUCOSE METER 299 GLUCOSE METER Collected: 02/13/2018 Status: F Source: [facility] 5:12 PM [facility] REPOSITORY TYPE CODE TESTS RESULT OUT OF REFERENCE UNITS RANGE LAB L500.11938 85-125 MG/DL High GLUCOSE METER 199 CBC W/DIFF Collected: 02/13/2018 Status: F Source: [facility] 3:41 PM [facility] REPOSITORY Order Comment: [place]: M TYPE CODE TESTS RESULT OUT OF RANGE REFERENCE UNITS LAB L200.22635 4.5-11.0 K/CU MM WBC Normal 7.1 LAB L200.62548 3.90-5.30 M/CU MM RBC Normal 3.97 LAB L200.37045 11.5-15.5 G/DL Low HGB 11.1 LAB L200.64245 35.0-47.0 % Low HCT 34.6 LAB L200.04620 80.0-99.0 fl MCV Normal 87.2 LAB L200.31348 32.0-36.0 GM/DL MCHC Normal 32.1 LAB L200.98352 11-14.5 RDW Normal 13.4 LAB L200.62303 9.4-12.4 MPV Normal 9.4 LAB L200.25129 150-450 K/CU MM PLT Normal 183 LAB L200.54718 45-75 % High NEUTROPHILS % 77.7 LAB L200.30954 Less than 2 % IMMATURE Normal GRAN % 0.1 LAB L200.48022 20-40 % Low LYMPH % 12.9 LAB L200.35653 2-10 % MONOCYTE % Normal 7.2 LAB L200.67682 0-5 % EOSINOPHIL Normal % 1.4 LAB L200.19575 0-2 % BASOPHIL % Normal 0.7 LAB L200.95436 2.0-8.3 K/CU MM NEUTROPHIL Normal ABS 5.50 LAB L200.56935 Less than 2 K/CU MM IMMATR GRAN Normal ABS 0.00 LAB L200.56395 0.9-4.4 K/CU MM LYMPH ABS Normal 0.90 LAB L200.15926 0.1-1.1 K/CU MM MONO ABS Normal 0.50 LAB L200.29862 0-0.5 K/CU MM EOS ABS Normal 0.10 LAB L200.09560 0-0.2 K/CU MM BASO ABS Normal 0.10 LAB L200.33970 Less than 1 % NRBC Normal 0.6 Performed By: #### L200.78874, L550.96985 #### [facility] [address] [place] [address] HGB A1C GLYCOHB Collected: 02/13/2018 Status: F Source: [facility] 3:41 PM [facility] REPOSITORY Order Comment: [place]: M TYPE CODE TESTS RESULT OUT OF REFERENCE UNITS RANGE LAB L550.79052 4.3-6.0 % High HGB A1C 7.5 GLYCOHB Performed By: #### L200.91910, L550.82075 #### [facility] [address] [place] [address] PTH INTACT Collected: 02/13/2018 Status: F Source: [facility] 3:41 PM [facility] REPOSITORY Order Comment: [place]: M TYPE CODE TESTS RESULT OUT OF REFERENCE UNITS RANGE LAB L550.13734 18.5-88.0 PG/ML High PTH INTACT 379.2 Performed By: #### L550.93365 #### [facility] [address] [place] [address] BMP Collected: 02/13/2018 Status: F Source: [facility] 3:41 PM [facility] REPOSITORY Order Comment: [place]: M TYPE CODE TESTS RESULT OUT OF RANGE REFERENCE UNITS LAB L500.07575 136-145 MMOL/L Normal NA 142 LAB L500.76295 3.5-5.1 MMOL/L Normal K 5.0 LAB L500.41458 98-107 MMOL/L High CL 110 LAB L500.27659 21-32 MMOL/L Normal CO2 21 LAB L500.41936 5-16 MMOL/L Normal AGAP 11 LAB L500.57304 70-100 MG/DL High GLU 220 Result Comment: 70-100- Normal Fasting; 100-125 Impaired Fasting; greater than 126 on more than one result- Diabetes. ADA guidelines. Results may be falsely elevated after the administration of Sulfapyridine. Results may be falsely depressed after the administration of Sulfasalazine. LAB L500.38002 7-26 MG/DL High BUN 49 LAB L500.32809 0.510-0.950 MG/DL High CREAT 4.600 Result Comment: Patients receiving either N-Acetylcysteine (NAC) or Metamizole prior to venipuncture, may have falsely depressed results. LAB L500.76540 15-24 Low BUN/CREA 11 LAB L500.33795 8.5-10.1 MG/DL Low CALCIUM TOTAL 8.3 Performed By: #### L500.72545, L500.77457, L500.09159, L500.62433, L500.02446, L540.89932, L540.23706, L540.76672, L540.62695 #### [facility] [address] [place] [id number] GFR EST Collected: 02/13/2018 Status: F Source: [facility] 3:41 PM [facility] REPOSITORY Order Comment: [place]: M TYPE CODE TESTS RESULT OUT OF RANGE REFERENCE UNITS LAB L500.99848 ML/MIN Normal IF non-AFR 10 AMER LAB L500.28396 ML/MIN Normal IF 12 AMER Performed By: #### L500.10163, L500.92383, L500.02199, L500.85318, L500.47078, L540.97228, L540.42977, L540.15047, L540.63089 #### [facility] [address] [place] [address] LIVER Collected: 02/13/2018 Status: F Source: [facility] 3:41 PM [facility] REPOSITORY Order Comment: [place]: M TYPE CODE TESTS RESULT OUT OF RANGE REFERENCE UNITS LAB L500.99242 6.0-8.5 GM/DL Low TP 5.8 LAB L500.10358 3.2-5.0 GM/DL Low ALBUMIN 2.9 LAB L500.17397 2.2-4.2 GM/DL Normal GLOBULIN 2.9 LAB L500.75295 0.8-2.0 Normal A/G RATIO 1.0 LAB L500.92639 0.2-1.0 MG/DL Normal BILI TOTAL 0.6 LAB L500.26736 0.00-0.20 MG/DL High BILI DIRECT 0.35 LAB L500.64241 8-34 U/L High SGOT (AST) 267 Result Comment: RESULTS MAY BE FALSELY DEPRESSED AFTER THE ADMINISTRATION OF SULFASALAZINE AND/OR SULFAPYRIDINE. LAB L500.53053 13-61 IU/L Normal SGPT (ALT) 56 Result Comment: RESULTS MAY BE FALSELY DEPRESSED AFTER THE ADMINISTRATION OF SULFASALAZINE AND/OR SULFAPYRIDINE. LAB L500.97195 45-117 U/L High ALK PHOS 580 Performed By: #### L500.32565, L500.44959, L500.58725, L500.86068, L500.61603, L540.22347, L540.05812, L540.90520, L540.53984 #### [facility] [address] [place] [address] PHOS Collected: 02/13/2018 Status: F Source: [facility] 3:41 PM [facility] REPOSITORY Order Comment: [place]: M TYPE CODE TESTS RESULT OUT OF RANGE REFERENCE UNITS LAB L500.05368 2.5-4.9 MG/DL Normal PHOS 4.4 Performed By: #### L500.99702, L500.80807, L500.07241, L500.08299, L500.56976, L540.57610, L540.44772, L540.89776, L540.51255 #### [facility] [address] [place] [id number] LIPID Collected: 02/13/2018 Status: F Source: [facility] 3:41 PM [facility] REPOSITORY Order Comment: [place]: M TYPE CODE TESTS RESULT OUT OF RANGE REFERENCE UNITS LAB L500.43608 30-149 MG/DL High TRIG 173 Result Comment: Patients receiving either N-Acetylcysteine (NAC) or Metamizole prior to venipuncture, may have falsely depressed results. LAB L500.23045 0-199 MG/DL Normal CHOL 159 LAB L500.37650 GREATER [place] 40 MG/DL Normal HDL DIRECT 50 Result Comment: Patients receiving Metamizole prior to venipuncture, may have falsely depressed results. LAB L500.14522 0-129 MG/DL Normal LDL 75 Result Comment: ___CHOLESTEROL/HDL RATIO RISK___ CHD RISK = Total CHOL LDL HDL (CHOL/HDL) Recommended <200 <130 >35 <3.4 Borderline 200-239 130-159 3.4-4.99 High >240 >160 >5.0 Performed By: #### L500.74839, L500.58284, L500.30202, L500.20054, L500.32305, L540.95858, L540.42016, L540.31148, L540.60647 #### [facility] [place] [address] HEP A IGM AB Collected: 02/13/2018 Status: F Source: [facility] 3:41 PM [facility] REPOSITORY Order Comment: [place]: TYPE CODE TESTS RESULT OUT OF REFERENCE UNITS RANGE LAB L540.30752 NONREACTIVE NONREACTIVE Normal HEP A IGM AB Result Comment: RESULTS WERE OBTAINED WITH THE [facility] XP HEPATITIS A IgM. VALUES OBTAINED WITH DIFFERENT MANUFACTURERS' ASSAY METHODS MAY NOT BE USED INTERCHANGEABLY. These results may be falsely depressed in the presence of Biotin concentrations above 500 ng/ml. Performed By: #### L500.90599, L500.60921, L500.64031, L500.83820, L500.78765, L540.46090, L540.09477, L540.42957, L540.66126 #### [facility] [address] [place] [address] HBSAG Collected: 02/13/2018 Status: F Source: [facility] 3:41 PM [facility] REPOSIT[facility] Order Comment: [place]: M TYPE CODE TESTS RESULT OUT OF REFERENCE UNITS RANGE LAB L540.22365 NONREACTIVE NONREACTIVE Normal HBSAG Result Comment: RESULTS WERE OBTAINED WITH THE [facility] XP. VALUES OBTAINED WITH DIFFERENT MANUFACTURERS' ASSAY METHODS MAY NOT BE USED INTERCHANGEABLY. Performed By: #### L500.67282, L500.04369, L500.53888, L500.99207, L500.94492, L540.84400, L540.25559, L540.99939, L540.44095 #### [facility] [place] [address] HEP B CORE IGM Collected: 02/13/2018 Status: F Source: [facility] 3:41 PM [facility] REPOSITORY Order Comment: [place]: M TYPE CODE TESTS RESULT OUT OF REFERENCE UNITS RANGE LAB L540.17616 NONREACTIVE NONREACTIVE Normal HEP B CORE IGM Result Comment: RESULTS WERE OBTAINED WITH THE [facility] XP ANTI-HBC IGM EIA. VALUES OBTAINED WITH DIFFERENT MANUFACTURERS' ASSAY METHODS MAY NOT BE USED INTERCHANGEABLY. These results may be falsely depressed in the presence of Biotin concentrations above 250 ng/ml. Performed By: #### L500.37879, L500.15048, L500.65404, L500.24791, L500.02334, L540.70440, L540.19947, L540.18602, L540.69172 #### [facility] [address] [place] [address] HEPATITIS C AB Collected: 02/13/2018 Status: F Source: [facility] 3:41 PM [facility] REPOSIT[facility] Order Comment: [place]: M TYPE CODE TESTS RESULT OUT OF REFERENCE UNITS RANGE LAB L540.59575 NONREACTIVE NONREACTIVE Normal HCV AB Result Comment: SCREENING TEST NEGATIVE NONREACTIVE HCV ANTIBODY SCREEN IS CONSISTENT WITH NO HCV INFECTION, UNLESS RECENT INFECTION IS SUSPECTED OR OTHER EVIDENCE EXISTS TO INDICATE HCV INFECTION Performed By: #### L500.89909, L500.15459, L500.88819, L500.11364, L500.48164, L540.68867, L540.74723, L540.01166, L540.22279 #### [facility] [address] [phone] PORTABLE CHEST Observed: 02/13/2018 Status: F Source: [facility] 2:26 PM [facility] PORTABLE CHEST Ordering Physician: Yomaira Nunez MD 02/13/2018 3:29 PM SINGLE PORTABLE UPRIGHT [...] M.D. EKG Observed: 02/13/2018 Status: UNK Source: [facility] 2:26 PM [facility] Procedure Date and Time: 02/13/18 1616 Test [...] (1027) on 02/13/2018 9:47:02 PM Referred By: Yomaira Nunez Confirmed By:Contreras MENDEZ M.D.FACC Ruth DDandT: 02/13/18 1616 TDandT: [facility] PATIENT NAME: SANDY BRAVO [facility] MEDICAL REC #: [id number] [place] [address] ADMIT DATE: 02/13/18 DISCHARGE DATE: ATTENDING PHY: Yomaira Nunez MD ELECTROCARDIOGRAM REPORT CLB cc: [facility] PATIENT NAME: SANDY BRAVO [facility] MEDICAL REC #: [id number] [place] [address] ADMIT DATE: 02/13/18 DISCHARGE DATE: ATTENDING PHY: Yomaira Nunez MD ELECTROCARDIOGRAM REPORT OR Observed: 02/13/2018 Status: UNK Source: [facility] 2:26 PM [facility] REPOSITORY DATE OF SERVICE: 02/14/2018 PREOPERATIVE DIAGNOSIS: Non-maturing arteriovenous fistula left radiocephalic. POSTOPERATIVE DIAGNOSIS: Non-maturing arteriovenous fistula left radiocephalic. OPERATION: 1. Ultrasound-guided retrograde access left radiocephalic arteriovenous fistula. 2. Antegrade access to left brachial artery with first order to take out placement. 3. Angioplasty of left radial artery with 2.5-mm x 12-cm [place] balloon x2. 4. Angioplasty of proximal anastomosis and proximal arteriovenous fistula with 2.5-mm [place] balloon x1. 5. Angioplasty of proximal arteriovenous [...] She was placed on pulse oximetry and service rig operator. Local anesthetic was infused. Gained access under ultrasound guidance to the A-V fistula outflow in the upper forearm. A 4-Barbadian sheath was placed. Fistulogram through a catheter [...] the outflow with a 4 x 4 [place] balloon to 12 atmospheres for two 2-minute [...] incident. The patient tolerated the procedure well. [facility] PATIENT NAME: SANDY BRAVO [address] [place] MEDICAL REC #: [id number] [place] [address] ADMIT DATE: 02/13/18 DISCHARGE DATE: OPERATIVE REPORT ATTENDING PHY: Yomaira Nunez MD Héctor Bonilla MD [id number] [facility] File#: [id number] Verified/Reviewed by 02/16/18 0648 WILNER [facility] PATIENT NAME: SANDY BRAVO [facility] [address] [facility] MEDICAL REC #: [id number] [place] [address] ADMIT DATE: 02/13/18 DISCHARGE DATE: OPERATIVE REPORT ATTENDING PHY: Yomaira Nunez MD Observed: 02/13/2018 Status: UNK Source: [facility] 2:26 PM [facility] REPOSITORY DATE OF CONSULTATION: 02/14/2018 REASON [...] Apparently, she was quite ill out in [place], eventually made her way to Dr. Nunez's office, who felt she needed to be [...] on those results. Héctor Bonilla MD JUAN [id number] [facility] File#: [id number] [facility] PATIENT NAME: S[facility]RAVO [facility] MEDICAL REC #: [id number] [place] [address] ADMIT DATE: 02/13/18 DISCHARGE DATE: CONSULTATION REPORT ATTENDING PHY: Yomaira Nunez MD Verified/Reviewed by 02/16/18 0648 PREJE [facility] PATIENT NAME: S[facility]RAVO [facility] MEDICAL REC #: [id number] [place] [address] ADMIT DATE: 02/13/18 DISCHARGE DATE: CONSULTATION REPORT ATTENDING PHY: Yomaira Nunez MD DS Observed: 02/13/2018 Status: UNK Source: [facility] 2:26 PM [facility] REPOSITORY DATE OF ADMISSION: 02/13/2018 DATE OF DISCHARGE: 02/16/2018 REASON: 1. End-stage renal disease. 2. Hypertension. 3. Nephrotic syndrome. 4. Hypothyroidism. 5. Insulin-dependent diabetes. 6. Hyperlipidemia. CONDITION: Stable. DESTINATION: Home. FOLLOWUP: In [place] [facility] unit. PROCEDURE: Temporary dialysis catheter, dialysis treatment. DIET: 1800-calorie, ADA, 2-gram salt, 2-gram potassium and 1500 mL. FURNITURE ASSEMBLER AND INSTALLER: Héctor Bonilla MD MEDICATIONS: 1. Folvite daily. [...] above complications, came to the office with audraa. We know she has CKD stage 5, preparing her for dialysis. She has AV fistula created and intervened on it to be sure and ready. We admitted her from the office. Catheter inserted in our vascular lab. Start dialysis, adjust her medications carefully. She lost more than 12 pounds fluid. She feels better, stronger and arrangement to go back to [place] for dialysis treatment and later on, follow that channel of combined kidney, pancreas transplant. Yomaira Nunez MD [facility] PATIENT NAME: SANDY RBAVO [address] [place] MEDICAL REC #: [id number] [place] [address] ADMIT DATE: 02/13/18 DISCHARGE DATE: 02/16/18 DISCHARGE SUMMARY ATTENDING PHY: Yomaira Nunez MD [id number] [facility] File#: [id number] Verified/Reviewed by 02/20/18 0844 ASFJE [facility] PATIENT NAME: SANDY BRAVO [address] [place] MEDICAL REC #: [id number] [place] [address] ADMIT DATE: 02/13/18 DISCHARGE DATE: 02/16/18 DISCHARGE SUMMARY ATTENDING PHY: Yomaira Nunez MD Observed: 02/13/2018 Status: UNK Source: [facility] 12:00 AM [facility] REPOSITORY REASON FOR ADMISSION: CKD stage 5, end stage disease, uremia, anasarca. HISTORY: Mrs. Sandy Bravo is a very pleasant 53-year-old lady, suffered from insulin-dependent diabetes with complications of retinopathy, neuropathy, nephropathy, and finding some anasarca. I have been following her over the last year at [facility], came to the office today with significant edema and anasarca, weakness and tiredness, cannot function. We have been preparing her for dialysis treatment. We had AV fistula created by Dr. Bonilla with Intervention, has not matured yet, and after working on her to get on the transplant list to combine kidney/pancreas transplant at [facility] yet to be done. In the office [...] Cannot function at home. Short of breath. [facility] PATIENT NAME: SANDY BRAVO [facility] [address] [facility] MEDICAL REC #: [id number] [place] [address] ADMIT DATE: 02/13/18 DISCHARGE DATE: HISTORY and PHYSICAL ATTENDING PHY: Yomaira Nunez MD Vital signs: Her weight is up [...] transplant, and follow along with you. Yomaira Nunez MD [id number] [facility] File#: [id number] Verified/Reviewed by 02/13/18 1529 ASFJE [facility] PATIENT NAME: SANDY BRAVO [address] [place] MEDICAL REC #: [id number] [place] [address] ADMIT DATE: 02/13/18 DISCHARGE DATE: HISTORY and PHYSICAL ATTENDING PHY: Yomaira Nunez MD HEMOGLOBIN A1C Collected: 02/10/2018 Status: F Source: [facility] 8:46 AM [facility] REPOSITORY TYPE CODE TESTS RESULT OUT OF REFERENCE UNITS RANGE LAB HGBA1C 4.3-5.6 % High Hemoglobin A1c 7.1 LAB HBA0 mg/dL Est. Average Glucose 157 Result Comment: eAG: (Estimated average glucose) is a calculated value from HgbA1c and is regional sales representative of the average blood glucose level in the last 2-3 month period. Performed By: #### HBA1C, CMP, LIPB, TSH #### [facility] [address] [place], [place] [address] COMP METABOLIC PANEL Collected: 02/10/2018 Status: F Source: [facility] 8:46 AM [facility] REPOSITORY TYPE CODE TESTS RESULT OUT [...] mg/dL Glucose High 188 Result Comment: The [place] Diabetes Association (ADA) provides guidance for cutoff [...] Standards of Medical Care in Diabetes 2016, [place] Diabetes Association. Diabetes Care. 2016.39(Suppl 1). LAB [...] By: #### HBA1C, CMP, LIPB, TSH #### [facility] [address] [place] [place], [place] [address] LIPID PANEL, BASIC Collected: 02/10/2018 Status: F Source: [facility] 8:46 AM [facility] REPOSITORY TYPE CODE TESTS [...] Desk Reference: National Heart, Lung, and Blood [place]. National Institutes of Health. 2001: NIH Publication No. 01-3305. 2. An International Atherosclerosis Society position paper: global recommendations for the management of dyslipidemia: executive summary, Atherosclerosis. 2014: 232(2):410-413. Performed By: #### HBA1C, CMP, LIPB, TSH #### [facility] [address] [place], [place] [address] TSH Collected: 02/10/2018 Status: F Source: [facility] 8:46 AM [facility] REPOSITORY TYPE CODE TESTS RESULT OUT OF RANGE REFERENCE UNITS LAB TSH 0.400-5.500 uU/mL TSH 4.350 Performed By: #### HBA1C, CMP, LIPB, TSH #### [facility] [address] [place], [place] [address] DISCHARGE SUMMARY Observed: 02/06/2018 Status: F Source: [facility] 11:57 AM [facility] REPOSITORY [facility] DISCHARGE SUMMARY NAME ACCOUNT SEX AGE ADMIT DISCHARGE PT MED. RECORD# NUMBER DATE DATE TYPE SANDY BRAVO [id number] F 53 01/14/18 01/17/18 1 [id number] ROOM: 312 DATE OF : 1965 DICTATING [...] and fistula placement. She follows with Dr. Nunez. She came in with nausea, vomiting, creatinine [...] Jakob Samuel MD 02/05/18 14:09 JOB #: [id number] Transcribed By: diana 02/05/18 19:48 Electronically signed by: Jose Samuel M.D. 02/06/18 11:57 Page 2 of 2 SANDY BRAVO Discharge Summary DISCHARGE SUMMARY Observed: 02/04/2018 Status: F Source: [facility] 11:38 AM [facility] DISCHARGE SUMMARY NAME ACCOUNT SEX AGE ADMIT DISCHARGE PT MED. RECORD# NUMBER DATE DATE TYPE SANDY BRAVO [id number] F 52 01/14/18 01/17/18 1 [id number] ROOM: [facility] DATE OF : 1965 DICTATING PHYSICIAN: Jakob Samuel DICTATION STARTS HERE including uncontrolled diabetes, chronic kidney disease being prepared for dialysis with fistula placement. She follows with Dr. Nunez. She came in with nausea and vomiting. [...] Jakob Samuel MD 01/17/18 11:55 JOB #: [id number] Transcribed By: am 01/17/18 12:38 Electronically signed by: Jose Samuel M.D. 02/04/18 11:38 Page 1 of 1 SANDY BRAVO Discharge Summary EMERGENCY REPORT Observed: 01/18/2018 Status: F Source: [facility] 2:26 AM [facility] EMERGENCY ROOM REPORT NAME ACCOUNT SEX AGE ADMIT DISCHARGE PT MED. RECORD# NUMBER DATE DATE TYPE LAWRENCE SANDY K [id number] F 52 01/14/18 1 19887 ROOM: 312 DATE OF : 1965 DICTATING [...] Dr. Lopez who was covering for Dr. Nunez, the patient's steam pressure chamber operator. He felt at this point, this patient [...] not improving, we will consult Dr. Lopez/Dr. Nunez for Nephrology again tomorrow and decide on further treatment options. I have discussed this with the patient and she is agreeable. DIAGNOSIS: 1. Acute on chronic renal failure. 2. Dehydration. 3. Diabetes mellitus poorly controlled. PLAN/DISPOSITION: The patient will be admitted to Dr. Samuel's service. Dictated By: Kade De La Torre DO 01/14/18 17:32 JOB #: [id number] Transcribed By: cholo 01/14/18 21:11 Page 1 of 2 SANDY BRAVO Emergency Room Report Electronically signed by: E-Sign: Dr. Kade De La Torre D.O. 01/18/18 02:26 Page 2 of 2 SANDY BRAVO Emergency Room Report EMERGENCY REPORT Observed: 01/18/2018 Status: F Source: [facility] 2:25 AM [facility] EMERGENCY ROOM REPORT NAME ACCOUNT SEX AGE ADMIT DISCHARGE PT MED. RECORD# NUMBER DATE DATE TYPE SANDY BRAVO [id number] F 52 01/14/18 1 [address]01 ROOM: 312 DATE OF : 1965 DICTATING [...] are getting ready to start dialysis. Dr. Nunez is her kidney doctor. PAST SURGICAL HISTORY: [...] motor or sensory deficits are noted. Hand survey engineer are strong and symmetric. SKIN: Skin is [...] La Torre DO 01/14/18 13:17 JOB #: [id number] Transcribed By: cholo 01/14/18 19:35 Electronically signed by: E-Sign: Dr. Kade De La Torre D.O. 01/18/18 02:25 Page 2 of 2 BERTRAND BRAVOTimothy Oneill Emergency Room Report CBC Collected: 01/17/2018 Status: F Source: [facility] 4:54 AM [facility] REPOSITORY TYPE CODE TESTS RESULT OUT OF [...] 7.10 x10EE3/U L Neut # 6.40 LAB [place] #(LOINC) 0.20 - 1.00 x10EE3/U L [place] # 0.60 LAB EO #(LOINC) 0.00 - 0.50 x10EE3/U L EO # 0.20 LAB [place] #(LOINC) 0.00 - 0.10 x10EE3/U L Baso # 0.10 LAB MANUAL DIFF(LOINC) MANUAL DIFF N/A LAB MORPHOLOGY(LOINC ) MORPHOLOGY N/A Result Comment: {CD] Performed By: #### [id number] #### [facility],[address] [place] [id number] BNP (B-TYPE NATRIURETIC Collected: 01/17/2018 Status: F Source: [facility]) 4:54 AM [facility] REPOS[facility] TYPE CODE TESTS RESULT OUT OF RANGE REFERENCE UNITS LAB BNP(LOINC) 1 - 100 pg/ml High BNP 376 Performed By: #### [id number] #### [facility],[address] [place] [address] CMP WITH EGFR Collected: 01/17/2018 Status: F Source: [facility] 4:54 AM [facility] REPOSITORY TYPE CODE TESTS RESULT OUT OF [...] OF AGE AND OLDER. Performed By: #### [id number] #### [facility],[address] [place] [address] PROGRESS NOTE Observed: 01/16/2018 Status: F Source: [facility] 9:09 PM [facility] PROGRESS NOTE NAME ACCOUNT SEX AGE ADMIT DISCHARGE PT MED. RECORD# NUMBER DATE DATE TYPE SANDY BRAVO [id number] F 52 01/14/18 1 [id number] ROOM: [facility] DATE OF : 1965 DICTATING PHYSICIAN: Jakob [...] 2 SANDY BRAVO Progress Note JOB #: [id number] Transcribed By: am 01/16/18 12:33 Electronically signed by: Jose Samuel M.D. 01/16/18 21:09 Page 2 of 2 SANDY BRAVO Progress Note CBC Collected: 01/16/2018 Status: F Source: [place] 5:45 AM [facility] REPOSITORY TYPE CODE TESTS RESULT OUT OF [...] 7.10 x10EE3/U L Neut # 5.60 LAB [place] #(LOINC) 0.20 - 1.00 x10EE3/U L [place] # 0.50 LAB EO #(LOINC) 0.00 - 0.50 x10EE3/U L EO # 0.10 LAB Baso #(LOINC) 0.00 - 0.10 x10EE3/U L Baso # 0.00 LAB MANUAL DIFF(LOINC) MANUAL DIFF N/A LAB MORPHOLOGY(INC ) MORPHOLOGY N/A Result Comment: {CD] Performed By: #### [id number] #### [place] [address] BNP (B-TYPE NATRIURETIC Collected: 01/16/2018 Status: F Source: [place] PEPTIDE) 5:45 AM [facility] REPOSITORY TYPE CODE TESTS RESULT OUT OF RANGE REFERENCE UNITS LAB BNP(INC) 1 - 100 pg/ml High BNP 438 Performed By: #### [id number] #### [place] [address] BMP WITH EGFR Collected: 01/16/2018 Status: F Source: [place] 5:45 AM [facility] REPOSITORY TYPE CODE TESTS RESULT OUT OF [...] OF AGE AND OLDER. Performed By: #### [id number] #### [facility],[address] [place] [address] HISTORY AND PHYSICAL Observed: 01/15/2018 Status: F Source: [facility] 8:59 PM [facility] HISTORY & PHYSICAL NAME ACCOUNT SEX AGE ADMIT DISCHARGE PT MED. RECORD# NUMBER DATE DATE TYPE SANDY BRAVO [id number] F 52 01/14/18 1 93568 ROOM: [facility] DATE OF : 63 DICTATING PHYSICIAN: Jakob [...] was 3.5. She has been seeing Dr. Nunez as an outpatient and had a fistula placed for upcoming dialysis. In the Emergency Room, they spoke to Dr. Lopez, who was on-call for Dr. Nunez and recommended treatment with IV fluids, and they will follow her up as an outpatient. PAST MEDICAL HISTORY: (1) Chronic kidney disease, being prepared for dialysis with fistula placement and follows with Dr. Nunez. (2) Uncontrolled diabetes mellitus type 1. (3) [...] Jakob Samuel MD 01/15/18 13:08 JOB #: [id number] Transcribed By: hector 01/15/18 14:01 Electronically signed [...] WITH EGFR Collected: 01/15/2018 Status: F Source: [facility] 7:15 PM [facility] REPOSITORY TYPE CODE TESTS RESULT OUT OF [...] OF AGE AND OLDER. Performed By: #### [id number] #### [facility],[address] [place] [address] URINALYSIS Collected: 01/15/2018 Status: F Source: [facility] 4:23 PM [facility] REPOSITORY TYPE CODE TESTS RESULT OUT OF [...] Urobilinog(LOINC) NORMAL: NORMAL Urobilinog NORM LAB Sp Jena(LOINC) NORMAL: 1.010-1.030 Sp Jena 1.010 LAB Nitrite(LOINC) NORMAL: NEGATIVE Nitrite NEG [...] LAB Yeast(LOINC) Yeast NONE Performed By: #### [id number] #### [facility],[address] [place] [address] Observed: 01/15/2018 Status: F Source: [facility] CULTURE URINE 4:23 PM [facility] REPOSITORY CULTURE URINE _URINE CULTURE_ M I C R O B I O L O G Y R E P O R T FINAL Antimicrobial Susceptibility and Organism Identification Report Specimen Number : [id number] Requested : 01/15/18 Specimen Source : CLEAN CATCH URINE Collected : 01/15/18 16:23 [facility] : Med/Surg Received : 01/15/18 16:23 Requesting Physician : DAVID Patient/Specimen Tests and Comments Specimen Comments FINAL REPORT: URINE COLONY COUNT: [id number] CFU/CC >OR=TO 3 COLONY TYPES PROBABLE CONTAMINATION Tech : Source : CLEAN CATCH URINE ID # : [id number] FINAL Report Date : / / : Collected : 01/15/18 16:23 01/18/18.1504.KLS. 01/17/18.0857.KLS. 01/18/18.1505.KLS.COMPLETE Performed By: #### [id number] #### [facility],[address] [place] [address] BMP WITH EGFR Collected: 01/15/2018 Status: F Source: [facility] 9:24 AM [facility] REPOSITORY TYPE CODE TESTS RESULT OUT OF [...] OF AGE AND OLDER. Performed By: #### [id number] #### [place] [address] BNP (B-TYPE NATRIURETIC Collected: 01/15/2018 Status: F Source: [place]G CAMPBELLDHAVAL PEPTIDE) 9:24 AM [facility] REPOSITORY TYPE CODE TESTS RESULT OUT OF RANGE REFERENCE UNITS LAB BNP(LOINC) 1 - 100 pg/ml High BNP 1058 Performed By: #### [id number] #### [place] [address] CBC Collected: 01/15/2018 Status: F Source: [place] 9:24 AM [facility] REPOSITORY TYPE CODE TESTS RESULT OUT OF [...] x10EE3/U L Neut # High 9.50 LAB [place] #(LOINC) 0.20 - 1.00 x10EE3/U L [place] # 0.90 LAB EO #(LOINC) 0.00 - 0.50 x10EE3/U L EO # 0.10 LAB Baso #(LOINC) 0.00 - 0.10 x10EE3/U L Baso # 0.10 LAB MANUAL DIFF(LOINC) MANUAL DIFF N/A LAB MORPHOLOGY(LOIN C) MORPHOLOGY SEE BELOW LAB PLT EST(LOINC) PLT EST NORMAL Result Comment: {CD] Performed By: #### [id number] #### [facility],[address] [place], [place] [id number] CNPN Observed: 01/15/2018 Status: COMPLETED Source: [place] 12:00 AM [facility] REPOSITORY Telephone (PHMEWO) SANDY BRAVO ([id number]) 1965 F Date Time Provider Department 01/15/18 [...] Status: F Source: [place] 4:42 PM [facility] REPOSITORY TYPE CODE TESTS RESULT OUT OF [...] Urobilinog(LOINC) NORMAL: NORMAL Urobilinog NORM LAB Sp Jena(LOINC) NORMAL: 1.010-1.030 Sp Jena 1.010 LAB Nitrite(LOINC) NORMAL: NEGATIVE Nitrite NEG [...] LAB Yeast(LOINC) Yeast NONE Performed By: #### [id number] #### [facility],[address] [place] [address] Observed: 01/14/2018 Status: F Source: [facility] CULTURE URINE 4:42 PM [facility] REPOSITORY CULTURE URINE _URINE CULTURE_ M I C R O B I O L O G Y R E P O R T FINAL Antimicrobial Susceptibility and Organism Identification Report Specimen Number : [id number] Requested : 01/14/18 Specimen Source : URINE Collected : 01/14/18 16:42 [facility] : Med/Surg Received : 01/14/18 16:42 Requesting Physician : DAVID Patient/Specimen Tests and Comments Specimen Comments FINAL REPORT: URINE COLONY COUNT: [id number] CFU/CC >OR=TO 3 COLONY TYPES PROBABLE CONTAMINATION Tech : Source : URINE ID # : [id number] FINAL Report Date : / / : Collected : 01/14/18 16:42 01/17/18.0919.KLS. 01/16/18.0839.BKO. 01/17/18.0920.KLS.COMPLETE Performed By: #### [id number] #### [facility],[address] [place] [address] Observed: 01/14/2018 Status: F Source: [facility] CULTURE BLOOD 2:20 PM [facility] REPOSITORY CULTURE BLOOD _BLOOD CULTURE_ SET: 1 of 2 24HOUR REPORT NO GROWTH 48HOUR REPORT NO GROWTH 72HOUR REPORT NO GROWTH GRAM STAIN: N/A M I C R O B I O L O G Y R E P O R T FINAL Antimicrobial Susceptibility and Organism Identification Report Specimen Number : [id number] Requested : 01/14/18 Specimen Source : BLOOD Collected : 01/14/18 14:20 [facility] : Emergency Room Received : 01/14/18 14:20 Requesting Physician : WIL Patient/Specimen Tests and Comments Specimen Comments FINAL REPORT: No Growth at 5 Days Tech : Source : BLOOD ID # : [id number] FINAL Report Date : / / : Collected : 01/14/18 14:20 01/18/18.BKO. 01/18/18.DEB.COMPLETE Performed By: #### [id number] #### [facility],[address] [place] [address] CBC Collected: 01/14/2018 Status: F Source: [facility] 1:45 PM [facility] REPOSITORY TYPE CODE TESTS RESULT OUT OF [...] x10EE3/U L Neut # High 9.90 LAB [place] #(LOINC) 0.20 - 1.00 x10EE3/U L [place] # 0.30 LAB EO #(LOINC) 0.00 - 0.50 x10EE3/U L EO # 0.00 LAB Baso #(LOINC) 0.00 - 0.10 x10EE3/U L Baso # 0.10 LAB MANUAL DIFF(LOINC) MANUAL DIFF N/A LAB MORPHOLOGY(LOINC ) MORPHOLOGY N/A Result Comment: {CD] Performed By: #### [id number] #### [facility],[address] [place], [place] [id number] LACTATE Collected: 01/14/2018 Status: F Source: [facility] 1:45 PM [facility] REPOSITORY TYPE CODE TESTS RESULT OUT OF REFERENCE UNITS RANGE LAB LACTATE(BENEDICTO 4.5 - 18.0 mg/dL NC) LACTATE 17.1 Performed By: #### [id number] #### [facility],[address] [place] [address] CMP WITH EGFR Collected: 01/14/2018 Status: F Source: [facility] 1:45 PM [facility] REPOSITORY TYPE CODE TESTS RESULT OUT OF [...] OF AGE AND OLDER. Performed By: #### [id number] #### [place] [address] TROPONIN Collected: 01/14/2018 Status: F Source: [facility] 1:45 PM [facility] REPOSITORY TYPE CODE TESTS RESULT OUT OF [...] such as heterophile antibodies). Performed By: #### [id number] #### [place] [address] BNP (B-TYPE NATRIURETIC Collected: 01/14/2018 Status: F Source: [facility] PEPTIDE) 1:45 PM [facility] REPOSITORY TYPE CODE TESTS RESULT OUT OF RANGE REFERENCE UNITS LAB BNP(LOINC) 1 - 100 pg/ml High BNP 1378 Performed By: #### [id number] #### [place] [address] KETONE, BLOOD, QUAL Collected: 01/14/2018 Status: F [facility] REPOSITORY TYPE CODE TESTS RESULT OUT OF REFERENCE UNITS RANGE LAB KETONES(BENEDICTO DOUGLAS - NC) NEGATIVE KETONES SMALL Result Comment: SPECIMEN SERUM Performed By: #### [id number] #### [facility],[address] [place] [address] Observed: 01/14/2018 Status: F Source: [place] CULTURE BLOOD 1:45 PM [facility] REPOSITORY CULTURE BLOOD _BLOOD_CULTURE_ 01/15/18.1411.JLN. SET: 2 of 2 24HOUR REPORT NO GROWTH 48HOUR REPORT NO GROWTH 72HOUR REPORT NO GROWTH GRAM STAIN: N/A M I C R O B I O L O G Y R E P O R T FINAL Antimicrobial Susceptibility and Organism Identification Report Specimen Number : [id number] Requested : 01/14/18 Specimen Source : BLOOD Collected : 01/14/18 13:45 [facility] : Emergency Room Received : 01/14/18 13:45 Requesting Physician : WIL Patient/Specimen Tests and Comments Specimen Comments FINAL REPORT: No Growth at 5 Days Tech : Source : BLOOD ID # : [id number] FINAL Report Date : / / : Collected : 01/14/18 13:45 01/18/18.1651.BKO. 01/18/18.BKO.COMPLETE Performed By: #### [id number] #### [place] [address] CHEST 1 VIEW Observed: 01/14/2018 Status: F Source: [facility] 1:38 PM [place] [address] Patient: SANDY BRAVO Phone#: : 1965 Age: 52 Gender: F Pt. Type: ER Account: [id number] Location: [facility] Ordering: KADE DE LA TORRE Exam Date: 01/14/2018/13:30 Family Phys: MALDONADO DENNY Charge Code: 830032 Physician: [place] Order #: [id number] DLP Dose#: PROCEDURE: X-RAY CHEST 1 VIEW [...] Status: F Source: [place] 1:35 PM [place] [address] Patient: SANDY BRAVO Phone#: : 1965 Age: 52 Gender: F Pt. Type: ER Account: [id number] Location: [facility] Ordering: KADE DE LA TORRE Exam Date: 01/14/2018/13:29 Family Phys: MALDONADO DENNY Charge Code: 142773 Physician: [place] Order #: [id number] DLP Dose#: PROCEDURE: CT BRAIN WITHOUT CONTRAST [...] 23:45 CNOV Observed: 01/09/2018 Status: COMPLETED Source: [place] 10:00 AM [facility] REPOSITORY Office Visit (INTMWS) SANDY BRAVO ([id number]) 1965 F Date Time Provider Department 01/09/18 [...] will be starting dialysis, has appointment with steam pressure chamber operator next . Reports swelling in hands and [...] OR GRAFT VENOUS Left 10/04/2017 - COLOSTOMY [id number] reversed 2006 - EXPLORATORY OF ABDOMEN 2006 [...] cancer - Coronary Artery Disease Brother dec. [place] 57 y.o. Social History Substance Use Topics [...] until blood sugars under better control and steam pressure chamber operator's okay 2. Chronic kidney disease, stage 4, severely decreased GFR (HCC) - ICD9: 585.4, ICD10: N18.4 Worsening renal function, edema and decreased urine output Potassium normal, no immediate intervention needed at this time. Follow-up with steam pressure chamber operator as scheduled next week. Will fax office [...] to treatment plan. Ifeoma Schneider APRN.Ifeoma Britt (Fish Warden) 01/09/2018 10:31 AM Addendum Check blood sugars at the same times except start checking 2 hours after lunch as well Call Pennie the clinical pharmacist to schedule appointment sooner No cataract surgery until you see the kidney doctor Go to ER for worsening swelling and/or shortness of breath Referring Provider: MALDONADO DENNY [[id number]] Allergies As of Date: 01/09/2018 Noted Allergy [...] 01/09/18 PROGRESS Observed: 01/09/2018 Status: COMPLETED Source: [place] 9:52 AM [facility] REPOSITORY HNO ID: [id number] Author: Ifeoma Schneider (Michel) Service: (none) Author [...] will be starting dialysis, has appointment with steam pressure chamber operator next . Reports swelling in hands and [...] OR GRAFT VENOUS Left 10/04/2017 - COLOSTOMY [id number] reversed 2006 - EXPLORATORY OF ABDOMEN 2005 [...] cancer - Coronary Artery Disease Brother dec. [place] 57 y.o. Social History Substance Use Topics [...] until blood sugars under better control and steam pressure chamber operator's okay 2. Chronic kidney disease, stage 4, severely decreased GFR (HCC) - ICD9: 585.4, ICD10: N18.4 Worsening renal function, edema and decreased urine output Potassium normal, no immediate intervention needed at this time. Follow-up with steam pressure chamber operator as scheduled next week. Will fax office [...] MOSS BMP Collected: 01/09/2018 Status: F Source: [place] 9:25 AM [facility] REPOSIT[facility] TYPE [...] .GFR Collected: 01/08/2018 Status: F Source: [facility] 7:50 AM [facility] REPOSITORY TYPE CODE TESTS RESULT OUT OF REFERENCE UNITS RANGE LAB GFRAA(LOINC ml/min/1.73 ) sqm GFR 12 Jamaican Result Comment: GFR Population mean for , [...] meters Performed By: #### GFR, BMP #### [address] [address] BMP Collected: 01/08/2018 Status: F Source: [facility] 7:50 AM [facility] REPOSITORY TYPE CODE TESTS [...] 7.8 Performed By: #### GFR, BMP #### [address] [address] PROGRESS Observed: 12/27/2017 Status: COMPLETED Source: [place] 2:15 PM [facility] REPOSITORY HNO ID: [id number] Author: Ifeoma (Michel) Older Service: (none) Author [...] OR GRAFT VENOUS Left 10/04/2017 - COLOSTOMY [id number] reversed 2006 - EXPLORATORY OF ABDOMEN 2006 [...] cancer - Coronary Artery Disease Brother dec. [place] 57 y.o. Social History Substance Use Topics [...] APRN.CNP CNOV Observed: 12/27/2017 Status: COMPLETED Source: [place] 2:00 PM [facility] REPOSITORY Office Visit (INTMWS) SANDY BRAVO ([id number]) 1965 F Date Time Provider Department 12/27/17 [...] OR GRAFT VENOUS Left 10/04/2017 - COLOSTOMY [id number] reversed 2006 - EXPLORATORY OF ABDOMEN 2005 [...] cancer - Coronary Artery Disease Brother dec. [place] 57 y.o. Social History Substance Use Topics [...] take at bedtime Referring Provider: ROE GIORDANO [[id number]] Allergies As of Date: 12/27/2017 Noted Allergy Reaction CODEINE 12/11/2006 8 - GI Upset LATEX 03/22/2012 4 - Hives Comments: 2006 had reaction after surgery PENICILLINS 12/11/2006 7 - Swelling Date Reviewed: 12/27/2017 Reviewed by: Dahlia Pham Oceanographer Physical - Fully Assessed Reason for Visit: PRE [...] 12/28/17 CBC Collected: 12/13/2017 Status: F Source: [facility] 8:39 AM [facility] REPOSITORY Order Comment: [place]: M TYPE CODE TESTS RESULT OUT OF RANGE REFERENCE UNITS LAB L200.76013 4.5-11.0 K/CU MM Normal WBC 6.8 LAB L200.91406 3.90-5.30 M/CU MM Low RBC 3.88 LAB L200.99253 11.5-15.5 G/DL Low HGB 10.9 LAB L200.34200 35.0-47.0 % Low HCT 33.7 LAB L200.30746 80.0-99.0 fl Normal MCV 86.9 LAB L200.15761 32.0-36.0 GM/DL Normal MCHC 32.3 LAB L200.90082 11-14.5 Normal RDW 13.2 LAB L200.46414 9.4-12.4 Low MPV 9.2 LAB L200.64789 150-450 K/CU MM Normal PLT 191 LAB L200.97090 Less than 1 % Normal NRBC 0.0 Performed By: #### L200.08923 #### [facility] [address] [place] [address] RENAL Collected: 12/13/2017 Status: F Source: [facility] 8:39 AM [facility] REPOSITORY Order Comment: [place]: TYPE CODE TESTS RESULT OUT OF RANGE REFERENCE UNITS LAB L500.87121 136-145 MMOL/L Normal NA 139 LAB L500.95523 3.5-5.1 MMOL/L High K 5.2 LAB L500.35056 98-107 MMOL/L High CL 109 LAB L500.76693 21-32 MMOL/L Normal CO2 21 LAB L500.92808 5-16 MMOL/L Normal AGAP 9 LAB L500.18066 70-100 MG/DL High GLU 327 Result Comment: 70-100- Normal Fasting; 100-125 Impaired Fasting; greater than 126 on more than one result- Diabetes. ADA guidelines. Results may be falsely elevated after the administration of Sulfapyridine. Results may be falsely depressed after the administration of Sulfasalazine. LAB L500.31365 7-26 MG/DL High BUN 44 LAB L500.56364 0.510-0.950 MG/DL High CREAT 3.970 Result Comment: Patients receiving either N-Acetylcysteine (NAC) or Metamizole prior to venipuncture, may have falsely depressed results. LAB L500.85719 15-24 Low BUN/CREA 11 LAB L500.93199 3.2-5.0 GM/DL Low ALBUMIN 3.0 LAB L500.63444 8.5-10.1 MG/DL Low CALCIUM TOTAL 8.1 LAB L500.34707 2.5-4.9 MG/DL Normal PHOS 4.9 Performed By: #### L500.64694, L500.58681 #### [facility] [address] [place] [address] # [phone] GFR EST Collected: 12/13/2017 Status: F Source: [facility] 8:39 AM [facility] REPOSITORY Order Comment: [place]: M TYPE CODE TESTS RESULT OUT OF RANGE REFERENCE UNITS LAB L500.84356 ML/MIN Normal IF non-AFR 12 AMER LAB L500.64226 ML/MIN Normal IF 14 AMER Performed By: #### L500.19294, L500.55658 #### [facility] [address] [place] [id number] # [phone] OR Observed: 12/13/2017 Status: UNK Source: [facility] 6:45 AM [facility] REPOSITORY DATE OF SERVICE: 12/13/2017 PREOPERATIVE DIAGNOSIS: Failing fistula, left upper extremity radiocephalic. POSTOPERATIVE DIAGNOSIS: Failing fistula, left upper extremity radiocephalic. OPERATION: 1. Ultrasound guided retrograde access, left radiocephalic AV fistula. 2. Ultrasound guided access to left brachial artery. 3. Arteriogram, left upper extremity. 4. Fistulogram, left upper extremity. 5. Angioplasty, proximal AV fistula, left, with 2 mm [place] balloon x2. 6. Angioplasty, proximal AV fistula, with 4 mm x 4 cm [place] balloon x3 and 4 mm x 2 cm [place] balloon x3. 7. Angioplasty of left radial artery with 2.5 mm x 15 cm [place] balloon x2. 8. Angioplasty of proximal anastomosis and distal radial artery, left, with 3 mm x 6 cm [place] balloon. COMPLICATIONS: None. ANESTHESIA: IV sedation, monitored [...] left forearm and the cephalic vein. A 4-Barbadian sheath was placed. Fistulogram through an angled [place]vine catheter revealed the subtotal occlusion of the [...] out for an angled Glidewire and a 4-Barbadian sheath. Glidewire was placed down the radial artery and attempts were made at antegrade approach through the anastomosis retrograde. This was unsuccessful. The radial artery was quite diminutive. I supplemented heparinization during the case, angioplastied the radial artery with a 2.5 x 15 cm [place] balloon to 12 atmospheres for 2, 2-minute inflations. This gave us better inflow. I then upsized from a retrograde approach from the fistula sheath to a 4 mm balloon, angioplastied [facility] PATIENT NAME: SANDY BRAVO [address] [address] MEDICAL REC #: [id number] [place] [address] ADMIT DATE: DISCHARGE DATE: OPERATIVE REPORT ATTENDING PHY: Héctor Bonilla MD the proximal area. We finally got good flow across this into the fistula, angioplastied a total of actually 4 or 5 times with a 4 x 4 and a 4 x 2 [place] balloon. This gave us now flow, actually dramatic improvement. I was then able to go antegrade from the radial side through the anastomosis with an 0.018 Glidewire and then exchanged out for a V14 wire, and then angioplastied the proximal anastomosis and distal radial artery with a 3 mm x 6 cm [place] balloon for 12 atmospheres, for 2 minute [...] the procedure well. Héctor Bonilla MD JUAN [id number] [facility] File#: [id number] Verified/Reviewed by 12/18/17 2320 PREJE [facility] PATIENT NAME: SANDY BRAVO [address] [address] [place] MEDICAL REC #: [id number] [place] [address] ADMIT DATE: DISCHARGE DATE: OPERATIVE REPORT ATTENDING PHY: Héctor Bonilla MD CBC Collected: 12/05/2017 Status: F Source: [facility] 11:29 AM [facility] REPOSITORY Order Comment: [place]: TYPE CODE TESTS RESULT OUT OF RANGE REFERENCE UNITS LAB L200.48401 4.5-11.0 K/CU MM Normal WBC 6.0 LAB L200.19817 3.90-5.30 M/CU MM Normal RBC 3.93 LAB L200.77123 11.5-15.5 G/DL Low HGB 10.8 LAB L200.67066 35.0-47.0 % Low HCT 34.0 LAB L200.37652 80.0-99.0 fl Normal MCV 86.5 LAB L200.86217 32.0-36.0 GM/DL Low MCHC 31.8 LAB L200.42025 11-14.5 Normal RDW 13.0 LAB L200.89939 9.4-12.4 Low MPV 9.3 LAB L200.18877 150-450 K/CU MM Normal PLT 184 LAB L200.78317 Less than 1 % Normal NRBC 0.3 Performed By: #### L200.35997 #### [facility] [address] [place] [address] RENAL Collected: 12/05/2017 Status: F Source: [facility] 11:29 AM [facility] REPOSITORY Order Comment: [place]: TYPE CODE TESTS RESULT OUT OF RANGE REFERENCE UNITS LAB L500.53046 136-145 MMOL/L Normal NA 140 LAB L500.55405 3.5-5.1 MMOL/L Normal K 5.1 LAB L500.60602 98-107 MMOL/L High CL 109 LAB L500.18841 21-32 MMOL/L Low CO2 20 LAB L500.22357 5-16 MMOL/L Normal AGAP 11 LAB L500.48694 70-100 MG/DL High GLU 231 Result Comment: 70-100- Normal Fasting; 100-125 Impaired Fasting; greater than 126 on more than one result- Diabetes. ADA guidelines. Results may be falsely elevated after the administration of Sulfapyridine. Results may be falsely depressed after the administration of Sulfasalazine. LAB L500.82192 7-26 MG/DL High BUN 48 LAB L500.91083 0.510-0.950 MG/DL High CREAT 4.060 Result Comment: Patients receiving either N-Acetylcysteine (NAC) or Metamizole prior to venipuncture, may have falsely depressed results. LAB L500.68812 15-24 Low BUN/CREA 12 LAB L500.84592 3.2-5.0 GM/DL Low ALBUMIN 2.9 LAB L500.55439 8.5-10.1 MG/DL Low CALCIUM TOTAL 8.1 LAB L500.87873 2.5-4.9 MG/DL Normal PHOS 4.8 Performed By: #### L500.52641, L500.13602 #### [facility] [address] [place] [address] GFR EST Collected: 12/05/2017 Status: F Source: [facility] 11:29 AM [facility] REPOSITORY Order Comment: [place]: M TYPE CODE TESTS RESULT OUT OF RANGE REFERENCE UNITS LAB L500.68448 ML/MIN Normal IF non-AFR 12 AMER LAB L500.76263 ML/MIN Normal IF 14 AMER Performed By: #### L500.48877, L500.10411 #### [facility] [address] [place] [address] US DIALYSIS GRAFT/FISTULA Observed: 11/27/2017 Status: F Source: [place] 2:45 PM [facility] [place] [place] [address] Vascular Lab - [facility] Accredited in: Extracranial Cerebrovascular, Visceral Vascular, Vascular Screening & Peripheral Arterial & Venous Testing [employer] REPORT Patient: SANDY BRAVO Roxanna Dr: HÉCTOR BONILLA M.D. [id number] [age] F Status: REG CLI CARD Reason for Visit: CKD STAGE 5 N18.5 Service Date: 11/27/17 Access#: [id number] Procedure: US DIALYSIS GRAFT/FISTULA Conclusions: Left: 1. The radial artery to cephalic vein AV fistula appears to be stenotic in the proximal outflow with a velocity of 533/205 cm/s. Post stenotic turbulence is visualized distal to the stenosis. 2. The Brachial Artery flow volume is 216cc/min Abbreviated Final Report. Full Report available via Link to [employer] in [employer] PCI - [employer] Image Viewer . Electronically Signed by: HÉCTOR BONILLA M.D. 11/28/17 0828 HÉCTOR BONILLA M.D. cc: HÉCTOR BONILLA M.D. << Signature on File>> Reported By: HÉCTOR BONILLA M.D. Signed By: HÉCTOR BONILLA M.D. Tests performed at: [address] [address] CNCO Observed: 11/06/2017 Status: COMPLETED Source: [place] 1:13 PM [facility] [place] REPOSITORY HNO ID: [id number] Author: Mammography Coordinator Service: (none) Author Type: Physician Type: Letter Filed: 11/07/2017 11:32 PM Note Text: November 06, 2017 PID: [id number] Sandy Soliman Lawrence [address] [place] [address] Dear Yodit Bravo, We are pleased to [...] report will be kept on file at [facility] as part of your permanent medical record and are available for your continuing care. Thank you for allowing us to help in meeting your health care needs. Sincerely, Dr. Maya Interpreting Radiologist [facility] (Normal over 40) [facility] SCREENING Observed: 11/06/2017 Status: F Source: [place] 10:15 AM [facility]IN [place] REPOSITORY * * *Final Report* * * DATE OF EXAM: Nov 06 2017 10:15AM [facility] 0581 - [facility] SCREENING / PROCEDURE REASON: Encounter for screening mammogram for malignant neoplasm of breast * * * * Physician Interpretation * * * * RESULT: #[id number] - [facility] SCREENING BILATERAL DIGITAL SCREENING MAMMOGRAM WITH CAD: [...] exams dated: 01/01/2016 mammogram, 10/17/2013 mammogram - [facility], 02/23/2004 mammogram, and 11/05/2002 mammogram. There are [...] by a staff physician. José albright,mitch/elton:11/06/2017 13:13:45 Separator Operator: Veronica SHEN)(Chris), [facility] letter sent: Normal over 40 Mammogram BI-RADS: 2 Benign finding Engineering Specialist Technician: Elton Transcribe Date/Time: Nov 06 2017 9:54A Dictated by: DARYL BAILEY MD This examination was interpreted and the report reviewed and electronically signed by: JOSÉ MAYA MD on Nov 06 2017 1:13PM EST [id number] Observed: 10/18/2017 Status: COMPLETED Source: [place] 2:45 PM [facility] REPOSITORY O ID: [id number] Author: Maldonado Denny Service: (none) Author Type: Physician Type: Progress Notes Filed: 10/18/2017 3:08 PM Note Text: This note was created using [employer]. Subjective Sandy Bravo is a 52 year old female here for overdue follow up. She was seeing Dr. Nunez now and had a fistula placed 2 weeks ago on her left arm. Her medications for hypertension were modified. Her diabetes mellitus was not controlled, and labile. ACTIVE PROBLEM LIST Uncontrolled Type 2 Diabetes Mellitus With Proteinuric Diabetic Nephropathy (Hcc) Htn (Hypertension) Hyperlipidemia Depression Hypothyroid Ascvd (Arteriosclerotic Cardiovascular Disease) Proteinuria Ckd (Chronic Kidney Disease) Stage 4, Gfr 15-29 Ml/Min ([facility]) Current Outpatient Prescriptions: cloNIDine HCl (CATAPRES) 0.2 [...] kidney disease) stage 4, GFR 15-29 ml/min ([facility]) - ICD9: 585.4, ICD10: N18.[address] Nunez. 6. Hypothyroidism, unspecified type - ICD9: 244.9, ICD10: E03.9 - continue current dose of Synthroid - TSH BLD 7. Visit for screening mammogram - ICD9: V76.12, ICD10: Z12.31 - [facility] SCREENING Maldonado Denny MD CBC Collected: 10/16/2017 Status: F Source: [facility] 8:28 AM [facility]IN [facility]AMPUS REPOSITORY TYPE [...] nRBC <0.01 Performed By: #### CBC #### [facility] [address] [place], [place] [address] BASIC METABOLIC PANL Collected: 10/16/2017 Status: F Source: [place] 8:28 AM [facility] REPOSITORY TYPE CODE TESTS RESULT OUT OF REFERENCE UNITS RANGE LAB GLU 74-99 mg/dL High Glucose 100 Result Comment: The [place] Diabetes Association (ADA) provides guidance for cutoff [...] Standards of Medical Care in Diabetes 2016, [place] Diabetes Association. Diabetes Care. 2016.39(Suppl 1). LAB [...] GFR. Performed By: #### BMP, HBA1C #### [facility] [address] [place], [place] [address] HEMOGLOBIN A1C Collected: 10/16/2017 Status: F Source: [place] 8:28 AM [facility] REPOSITORY TYPE CODE TESTS RESULT OUT OF REFERENCE UNITS RANGE LAB HGBA1C 4.3-5.6 % High Hemoglobin A1c 7.8 LAB HBA0 mg/dL Est. Average Glucose 177 Result Comment: eAG: (Estimated average glucose) is a calculated value from HgbA1c and is regional sales representative of the average blood glucose level in the last 2-3 month period. Performed By: #### BMP, HBA1C #### [facility] [employer] [address] [place], [place] [address] GLUCOSE METER Collected: 10/04/2017 Status: F Source: [facility] 10:41 AM CENTER [facility] REPOSITORY TYPE CODE TESTS RESULT OUT OF REFERENCE UNITS RANGE LAB L500.93141 85-125 MG/DL High GLUCOSE METER 169 PATIENT RETYPE Collected: 10/04/2017 Status: F Source: [facility] 8:05 AM [facility] REPOSITORY TYPE CODE TESTS RESULT OUT OF RANGE REFERENCE UNITS LAB B100.50583 A Normal RETYPE POSITIVE INTERP CBC W/DIFF Collected: 10/04/2017 Status: F Source: [facility] 7:00 AM [facility] [place] REPOSITORY Order Comment: [place]: M TYPE CODE TESTS RESULT OUT OF RANGE REFERENCE UNITS LAB L200.50547 4.5-11.0 K/CU MM WBC Normal 7.5 LAB L200.31207 3.90-5.30 M/CU MM Low RBC 3.87 LAB L200.82435 11.5-15.5 G/DL Low HGB 11.0 LAB L200.42067 35.0-47.0 % Low HCT 33.0 LAB L200.39965 80.0-99.0 fl MCV Normal 85.3 LAB L200.71238 32.0-36.0 GM/DL MCHC Normal 33.3 LAB L200.13837 11-14.5 RDW Normal 12.7 LAB L200.62644 9.4-12.4 Low MPV 9.0 LAB L200.81246 150-450 K/CU MM PLT Normal 189 LAB L200.00364 45-75 % High NEUTROPHILS % 76.4 LAB L200.14046 Less than 2 % IMMATURE Normal GRAN % 0.3 LAB L200.28768 20-40 % Low LYMPH % 16.2 LAB L200.97043 2-10 % MONOCYTE % Normal 5.2 LAB L200.99044 0-5 % EOSINOPHIL Normal % 1.1 LAB L200.14850 0-2 % BASOPHIL % Normal 0.8 LAB L200.07305 2.0-8.3 K/CU MM NEUTROPHIL Normal ABS 5.80 LAB L200.13524 Less than 2 K/CU MM IMMATR GRAN Normal ABS 0.00 LAB L200.08001 0.9-4.4 K/CU MM LYMPH ABS Normal 1.20 LAB L200.04212 0.1-1.1 K/CU MM MONO ABS Normal 0.40 LAB L200.76366 0-0.5 K/CU MM EOS ABS Normal 0.10 LAB L200.45698 0-0.2 K/CU MM BASO ABS Normal 0.10 LAB L200.65162 Less than 1 % NRBC Normal 0.0 Performed By: #### L200.31732 #### [facility] [address] [place] [address] BMP Collected: 10/04/2017 Status: F Source: [facility] 7:00 AM [facility] REPOSITORY Order Comment: [place]: TYPE CODE TESTS RESULT OUT OF RANGE REFERENCE UNITS LAB L500.41197 136-145 MMOL/L Normal NA 139 LAB L500.05877 3.5-5.1 MMOL/L Normal K 4.9 LAB L500.18067 98-107 MMOL/L Normal CL 106 LAB L500.29793 21-32 MMOL/L Normal CO2 25 LAB L500.55166 5-16 MMOL/L Normal AGAP 8 LAB L500.09189 70-100 MG/DL High GLU 224 Result Comment: 70-100- Normal Fasting; 100-125 Impaired Fasting; greater than 126 on more than one result- Diabetes. ADA guidelines. Results may be falsely elevated after the administration of Sulfapyridine. Results may be falsely depressed after the administration of Sulfasalazine. LAB L500.59393 7-26 MG/DL High BUN 52 LAB L500.34643 0.510-0.950 MG/DL High CREAT 4.160 Result Comment: Patients receiving either N-Acetylcysteine (NAC) or Metamizole prior to venipuncture, may have falsely depressed results. LAB L500.29108 15-24 Low BUN/CREA 12 LAB L500.98982 8.5-10.1 MG/DL Low CALCIUM TOTAL 8.2 Performed By: #### L500.61181, L500.43303 #### [facility] [address] [place] [address] GFR EST Collected: 10/04/2017 Status: F Source: [facility] 7:00 AM [facility] REPOSITORY Order Comment: [place]: M TYPE CODE TESTS RESULT OUT OF RANGE REFERENCE UNITS LAB L500.76344 ML/MIN Normal IF non-AFR 11 AMER LAB L500.70070 ML/MIN Normal IF 14 AMER Performed By: #### L500.08563, L500.51353 #### [facility] [address] [place] [address] TS Collected: 10/04/2017 Status: F Source: [facility] 7:00 AM [facility] REPOSITORY Order Comment: [place]: M Patient transfused or in the past 3 months? NO Is This Patient Going To Surgery? Y Surgery Date: 10/04/17 TYPE CODE TESTS RESULT OUT OF RANGE REFERENCE UNITS LAB B100.0400 A Normal BLOOD TYPE POSITIVE LAB B100.0680 Normal ANTIBODY NEGATIVE SCREEN OR Observed: 10/04/2017 Status: UNK Source: [facility] 5:52 AM [facility] REPOSITORY DATE OF SERVICE: 10/04/2017 PREOPERATIVE [...] to the recovery room in stable condition. [facility] PATIENT NAME: SANDY BRAVO [address] [place] MEDICAL REC #: [id number] [place] [address] ADMIT DATE: DISCHARGE DATE: OPERATIVE REPORT ATTENDING PHY: Héctor Bonilla MD Héctor Bonilla MD /[id number] SSI File#: [id number] Verified/Reviewed by 10/04/17 1119 PREJE [facility] PATIENT NAME: SANDY BRAVO RoshniJonathan Lizeth White MEDICAL REC #: [id number] [place] [address] ADMIT DATE: DISCHARGE DATE: OPERATIVE REPORT ATTENDING PHY: Héctor Bonilla MD EKG Observed: 10/04/2017 Status: UN Source: [facility] 5:52 [facility] Procedure Date and Time: 10/04/17643 Test Reason [...] By:CHANDLER HOOKS MD Ruth DDandT: 10/04/1744 TDandT: [facility] PATIENT NAME: SANDY BRAVO Lizeth White MEDICAL REC #: [id number] [place] [address] ADMIT DATE: DISCHARGE DATE: ATTENDING PHY: Héctor Bonilla MD ELECTROCARDIOGRAM REPORT CLB cc: [facility] PATIENT NAME: SANDY BRAVO [address] [place] MEDICAL REC #: [id number] [place] [id number] ADMIT DATE: DISCHARGE DATE: ATTENDING PHY: Héctor Bonilla MD ELECTROCARDIOGRAM REPORT CNPTOUTREACH Observed: 10/03/2017 Status: COMPLETED Source: [place] 12:00 AM [facility] REPOSITORY Patient Outreach (INTMWH) SANDY BRAVO ([id number]) 1965 F Date Time Provider Department 10/03/17 MALDONADO DENNY [facility] During your visit today, we recorded the following information about you: Allergies As of Date: 10/03/2017 Noted Allergy Reaction CODEINE 12/11/2006 8 - GI Upset LATEX 03/22/2012 4 - Hives Comments: 2005 had reaction after surgery PENICILLINS 12/11/2006 7 - Swelling Date Reviewed: 05/10/2017 Reviewed by: Dahlia Pham Oceanographer Physical - Fully Assessed Visit Diagnosis:Medication management [Z79.899] Order(s):[facility] [[facility]] Order #: [id number] FUTURE Prescriptions as of 10/03/2017 Sig: X [...] GFR 15-29*INVALID FOR* More... Encounter Status:Closed by [employer] PRODUSER on 10/22/17 ALLERGIES ALLERGIES DATE TYPE / CODE NAME / CODE REACTION SEVERITY SOURCE 09/13/2018 Drug Penicillins/F001 Unknown Unknown Russell Allergy/410910066( 155917(RXNORM) [facility] Hospital Repository 09/13/2018 Drug codeine/I3806002 Unknown Unknown Tanisha Allergy/969737561( 49(RXNORM) [facility] SNOMED CT) Hospital Repository 09/13/2018 Drug latex/[id number] Unknown Unknown Tanisha Allergy/272997598( (RXNORM) [facility]ository 03/22/2012 DRUG LATEX HIVES [place] INGREDI/239348774( [facility] Main SNOMED CT) [place] Repository 12/11/2006 DRUG CODEINE GI UPSET [place] INGREDI/240482381( [facility] Main SNOMED CT) [place] Repository 12/11/2006 Drug PENICILLINS SWELLING [place] Class/932015304([facility] Main OMED CT) [place] Repository Environmental LATEX Moderate Trung Pomerene Allergy/275515250( ([facility] SNOMED CT) Modifier) Hospital (Qualifier Repository Value) Drug PENICILLINS REDNESS, Moderate Trung [place] Allergy/626106896( (CLASS)/82527125 RASH, ([facility]) (RXNORM) SWELLING; Modifier) Hospital SOB, SWELLING (Qualifier Repository Value) Drug CODEINE/23875989 RASH; Moderate [place]ung [place] Allergy/706900909( (RXNORM) VOMITING, ([facility] SNOMED CT) NAUSEA Modifier) Hospital (Qualifier Repository Value) ENCOUNTERS ENCOUNTERS ADMIT/DISCHARGE ACCOUNT NUMBER ADMITTING ENCOUNTER LOCATION SOURCE CLASS 09/20/2018 [id number] Ambulatory BMSBuilding: Tanisha BMS.CF.[facility] Repository 09/20/2018/09/20/19 [id number] Ambulatory [address] ding:SDCRoom Repository : AC06 08/23/2018/08/23/20 [id number] Ambulatory BMSBuilding: Tanisha 18 BMS.[facility] Repository 08/21/2018 [id number] Ambulatory BMSBuilding: Tanisha BMS.CF.[facility] Repository 08/21/2018 [id number] Ambulatory [facility] ding:[facility] Repository 08/14/2018/08/15/20 [id number] Ambulatory [address] Repository 08/14/2018/08/14/20 [id number] Ambulatory BMSBuilding: Atnisha 18 BMS.[facility] Repository 07/24/2018 [id number] Inpatient [facility] Repository ng:H.SD 06/15/2018/06/15/[id number] ELIGIO Emergency Buildin[address] [place] [address] Room: ERBed: [facility] Repository 06/07/2018/06/08/20 [id number] KADE DE LA TORRE Emergency Buildin[address] [place] [address] DO Room: ERBed: [facility] Repository 05/16/2018 [id number] Inpatient [facility] Repository ng:H.SD 05/11/2018/05/15/20 [id number] Joanne, Inpatient [address] Repository ng:H.9MRoom: [id number]: 05/11/2018/05/11/20 [id number] STELLA, Emergency Buildin [facility] 18 ARTIE Room: ERBed: [facility] Repository 05/10/2018/05/14/20 [id number] Ambulatory [address] Repository 05/01/2018 [id number] Inpatient [facility] Repository ng:H.SD 04/05/2018 [id number] Ambulatory [facility] ding:MRI Repository 03/20/2018 [id number] Inpatient [facility] Repository ng:H.SD 03/01/2018/03/05/20 [id number] Ambulatory [address] Repository 02/13/2018/02/17/20 [id number] Asfoura, Inpatient [address] Repository ng:H.8MRoom: [id number]: 02/10/2018/02/11/20 [id number] Ambulatory [address] Repository 01/23/2018 [id number] [facility], Ambulatory [facility] Repository 01/14/2018/01/18/20 [id number] DAVID, Inpatient Buildin [place] [address] JAKOB VILLANUEVA Encounter Room: [address] [place] [address] Repository 01/11/2018 [id number] Ambulatory ABuilding:ROSA Chan U [facility] Repository 01/09/2018/01/11/20 [id number] Ambulatory [address] Repository 01/09/2018/01/10/20 [id number] Ambulatory [address] Repository 01/08/2018/01/09/20 [id number] Ambulatory ABuilding:ROSA Chan 18 URoom: Health 0115Bed: A Foundation Repository 12/27/2017/12/30/19 [id number] Ambulatory [address] Repository 12/13/2017 [id number] [facility] ng:H.SD 12/05/2017 [id number] Inpatient [facility] Medical Encounter [facility] Repository ng:H.SD 12/01/2017 [id number] Ambulatory ABuilding:SD [facility] Repository 11/27/2017 [id number] Ambulatory UNIBuilding: [facility] Repository 11/06/2017/11/07/19 [id number] Ambulatory [address] Repository 10/18/2017/10/18/19 [id number] Ambulatory [address] Repository 10/16/2017/10/16/19 [id number] Ambulatory [address] Repository 10/04/2017 [id number] Inpatient [facility] Repository ng:H.SD PAYERS PAYERS ENCOUNTER GUARANTOR PAYER SUBSCRIBER SOURCE 09/20/2018 SANDY BOYKINAY744 Primary SANDY Garay ABHIJEET Insurance:MEDICARE MCVAYDOB: [place], [place] PART A BPolicy Number: [id number] Hospital [address]Jcc: 234 [id number] Repository [phone] () Date:2018-08-29 09/20/2018 Secondary SANDY Mai Tanisha Insurance:MEDICAIDPoli [facility]: [facility] cy Number: [id number] [id number] Repository Date:2018-08-29 09/20/2018 Tertiary NOT GIVENUNK Tanisha Insurance:SELF PAY [facility] Number: Effective Repository Date:2018-09-20 09/20/2018 SANDY Oneill [id number] Primary SANDY Garay ABHIJEET Insurance:MEDICARE MCVAYDOB: [place] PART A BPolicy Number: [id number] Hospital 24352Hzp: (234 [id number] Repository [phone] () Date:2018-08-29 09/20/2018 Secondary SANDY Mai Russell Insurance:MEDICAIDPoli [facility] Community cy Number: [id number] Hospital [id number] Repository Date:2018-08-29 09/20/2018 Tertiary NOT GIVENUNK Tanisha Insurance:SELF PAY [facility] Number: Effective Repository Date:2018-08-29 08/23/2018 SANDY BOYKINAY744 Primary SANDY Garay ABHIJEET Insurance:MEDICARE MCVAYDOB: [place] PART A BPolicy Number: [id number] Hospital 90698Rdl: 234 [id number] Repository [phone] (HP) Date:2018-08-15 08/23/2018 Secondary SANDY Mai [place] Insurance:MEDICAIDPoli MCVAYDOB: [facility] cy Number: [id number] Hospital [id number] Repository Date:2018-08-15 08/23/2018 Tertiary NOT GIVENUNK Tanisha Insurance:SELF PAY [facility] Number: Effective Repository Date:2018-08-22 08/21/2018 SANDY BOYKINAY744 Primary SANDY Garay ABHIJEET Insurance:MEDICARE MCVAYDOB: [place] PART A BPolicy Number: [id number] Hospital 589[address]Lnu: 234 [id number] Repository [phone] (HP) Date:2018-08-15 08/21/2018 Secondary SANDY Mai Tanisha Insurance:MEDICAIDPoli MCVAYDOB: [facility] cy Number: [id number] Hospital [id number] Repository Date:2018-08-15 08/21/2018 Tertiary NOT GIVENUNK Tanisha Insurance:SELF PAY [facility] Number: Effective Repository Date:2018-08-21 08/21/2018 SANDY Oneill [id number] Primary SANDY Garay ABHIJEET Insurance:MEDICARE MCVAYDOB: [place] PART A BPolicy Number: [id number] Hospital 29359Fdq: 234 [id number] Repository [phone] (HP) Date:2018-08-15 08/21/2018 Secondary SANDY Mai Russell Insurance:MEDICAIDPoli MCVAYDOB: Community cy Number: [id number] Hospital [id number] Repository Date:2018-08-15 08/21/2018 Tertiary NOT GIVENUNK Russell Insurance:SELF PAY [facility] Number: Effective Repository Date:2018-08-15 08/14/2018 Dante [id number] Primary SANDY Garay [address], Insurance:MEDICARE MCVAYDOB: [facility] [address]Zgb: PART A BPolicy Number: [id number] Hospital [id number] Repository (HP) Date:2018-08-06 08/14/2018 Secondary SANDY Garay Insurance:MEDICAIDPoli MCVAYDOB: Community cy Number: [id number] Hospital [id number] Repository Date:2018-08-06 08/14/2018 Tertiary NOT GIVENUNK Tanisha Insurance:SELF PAY [facility] Number: Effective Repository Date:2018-08-06 07/24/2018 SANDY BOYKINAY744 Primary SANDY BEAVER [facility] Insurance:MEDICAREPoli [place] Number: Repository [address]Fku: (558) [id number] [phone] (HP) Date:2012-12-03 [address] CODE [id number] [address]QA: 07/24/2018 Secondary SANDY BEAVER [facility] Insurance:MEDICAID [facility] Number: Repository [id number] Date:1046-68-99KW [address], [place] [address]KF: 06/15/2018 SANDY Oneill MCVAYDOB: Primary SANDY Siddiqui Insurance:MEDICARE MCVAYDOB: [facility] [id number] [place] [address] Number: [facility] Repository [address]Cfi: [phone] [id number] [facility] [phone] (HP) Date:Plan Name:[facility] [id number] 06/15/2018 Secondary SANDY Siddiqui Insurance:MEDICAID MCVAYDOB: [facility] [id number] Hospital Number: [facility] [id number] [facility], Date:Plan Name:[facility] [id number] 06/07/2018 SANDY COVARRUBIASB: Primary SANDY Siddiqui Insurance:MEDICARE [facility] [id number] [place] [address] Number: [facility] Repository 795[address]Tdw: ([phone] [id number] [facility], [phone] (HP) Date:Plan Name:[facility] [id number] 06/07/2018 Secondary SANDY Siddiqui Insurance:MEDICAID MCVAYDOB: [facility] [id number] Hospital Number: [facility] [id number] [facility], Date:Plan Name:[facility] [id number] 05/16/2018 SANDY CANO Primary SANDY BEAVER [facility] [place] Number: Repository [address]Yun: 234 [id number] [phone] (HP) Date:2012-12-03[address]MJXG CODE NT269DUSBAIEJ, [place] [address]AT: 05/16/2018 Secondary [facility]Y [facility]AVER [facility] Insurance:MEDICAID [facility] [place] Number: Repository [id number] Date:0631-13-18AF [address] [address]UK: 05/11/2018 SANDY CANO Primary S[facility]Y BEAVER [facility] Insurance:MEDICAREPoli [place] Number: Repository [address]Huo: 234 [id number] [phone] (HP) Date:2012-12-03[address]CILQ CODE [id number], [place] [address]FQ: 05/11/2018 Secondary SANDY BEAVER [facility] Insurance:MEDICAID [facility] Number: Repository [id number] Date:4379-81-82[address] [address]TC: 05/11/2018 SANDY Oneill MCVMILYDOB: Primary SANDY Siddiqui Insurance:MEDICARE MCVAYDOB: [facility] [id number] [place] [address] Number: [facility] Repository [id number]: [phone] [id number] [facility], [phone] (HP) Date:Plan Name:[facility] [id number] 05/11/2018 Secondary SANDY Siddiqui Insurance:MEDICAID MCVAYDOB: [facility] [id number] Hospital Number: [facility] [id number] [facility], Date:Plan Name:[facility] [address] 05/01/2018 SANDY Oneill [id number] Primary SANDY BEAVER [facility] Insurance:MEDICAREPoli [place] Number: Repository [address]Aiz: [phone] [id number] [phone] (HP) Date:2012-12-03 [facility] 093188TZKB CODE [id number], [place] [address]YO: 05/01/2018 Secondary SANDY BEAVER [facility] Insurance:MEDICAID [facility] Number: Repository [id number] Date:0425-72-02V[address] [address]KJ: 04/05/2018 Dante [id number] Primary SANDY Garay [address], Insurance:MEDICARE MCVAYDOB: [facility] [address]Xqp: PART A BPolicy Number: [id number] Hospital [id number] Repository (HP) Date:2018-03-27 04/05/2018 Secondary SANDY K Tanisha Insurance:MEDICAIDPoli MCVAYDOB: Community cy Number: [id number] Hospital [id number] Repository Date:2018-03-27 04/05/2018 Tertiary NOT GIVENUNK Russell Insurance:SELF PAY [facility] Number: Effective Repository Date:2018-03-27 03/20/2018 SANDY [id number] Primary SANDY BEAVER [facility] Insurance:MEDICAREPoli [place], [place] Number: Repository [id number]: 234 [id number] [phone] () Date:2012-12-03[address] CODE [id number], [place] [address]KU: 03/20/2018 Secondary [facility] Insurance:MEDICA[place] OF [place] Number: Repository [id number] Date:8732-90-20[address], [place] [address]XU: 02/13/2018 SANDY BOYKINAY744 Primary SANDY BEAVER [facility] [place] Number: Repository [id number]: 234 [id number] [phone] () Date:2012-12-03[address] CODE [id number], [place] [address]NV: 02/13/2018 Secondary [facility]RE [facility] Insurance:[place] OF [place] Number: Repository [id number] Date:2018-02-131067-33-12[address], [place] [address]HH: 01/23/2018 SANDY Oneill MCVGÓMEZB: Primary SANDY Siddiqui [id number] Insurance:MEDICARE [facility]: [facility] [id number] [place] [address] Number: [facility] Repository [id number]: [phone] [id number] [facility], [phone] (HP) Date:Plan Name:[facility] [id number] 01/23/2018 Secondary SANDY Siddiqui Insurance:MEDICAID MCVAYDOB: [facility] [id number] Hospital Number: [facility] [id number] [place], Date:Plan Name:[facility] [id number] 01/14/2018 SANDY Oneill MCVAYDOB: Primary SANDY Mai [facility] Insurance:MEDICARE MCVAYDOB: [facility] [id number] [place] [address] Number: [facility] [address]Gsa: (234) [id number] [place], [phone] () Date:Plan Name:[facility] [id number] 01/14/2018 Secondary SANDY Mai Nino Lucas Insurance:MEDICAID MCVAYDOB: [facility] [id number] Hospital Number: [facility] [id number] [place], Date:Plan Name:[facility] [id number] 01/11/2018 SANDY K MCVAYDOB: Primary [facility] Insurance:MEDICARE MCVAYDOB: [facility] BPolicy Number: [id number] [place], [place] [id number] [place] [address]Wvy: (234) Date:2018-01-10 [facility] [phone] () [id number] [place] [address]Rno: Name:[facility] Administrators LLCPO (HP)Tel: [phone] Aro [address]Cebymdtwt, [place] [phone] () 21968PY: 01/11/2018 Secondary [facility] Insurance:[facility]ICAID [facility] Number: [id number] Repository [id number] [place] Date:2018-01-10 - [facility] [id number] [place] [address]Ylt: Name:RICARDO LAWRENCE [address], [place] (HP)Tel: 000) [phone]: (WP) [phone] 01/08/2018 SANDY COVARRUBIASB: Primary [facility] Insurance:MEDICARE MCVAYDOB: [facility] BPolicy Number: [id number] Repository [place], [place] [id number] [place] [address]Zps: (234) Date:2017-03-18 - [facility] [phone] (HP) [id number] [place] [address]Rzs: Name:[facility] LL[facility]O (HP)Tel: (000) [address] [address]Bnwflflyn, [place] [phone] (WP) [phone]: 01/08/2018 Secondary [facility] Insurance:MEDICAID OF MCVAYDOB: [facility] [place] Number: [id number] Repository [id number] [facility] Date:2017-12-01 - [facility] [id number] [place] [address]Xpu: Name:RICARDO LAWRENCE [address]Znyxhynx, [place] (HP)Tel: 000) [phone]: (WP) [phone] 12/13/2017 SANDY Oneill [id number] Primary SANDY K [facility] Insurance:MEDICAREPoli [place] Number: Repository [id number]: 234 [id number] (HP) Date:2012-12-03[address]VP[address] CODE [id number], [place] [address]GO: 12/13/2017 Secondary SANDY K [facility] Insurance:MEDICAID [facility] Number: Repository [id number] Date:0393-92-63[address], [place] [address]SR: 12/05/2017 SANDY CANO Primary SANDY BEAVER [facility] Insurance:[facility] [place] Number: Repository [id number]: [phone] [id number] [phone] (HP) Date:2012-12-03 [address] CODE [id number], [place] [address]LW: 12/05/2017 Secondary SANDY BEAVER [facility] Insurance:MEDICAID [facility] Number: Repository [id number] Date:4879-41-82[address], [place] [address]AG: 12/01/2017 SANDY Oneill [facility]: Primary [facility] Insurance:MEDICARE MCVAYDOB: [facility] BPolicy Number: [id number] Repository [place], [place] [id number] [facility] [id number]: (234) Date:2017-12-01 - [facility], 6531 (HP) [id number] [place] [address]Kog: Name:[facility] [employer] (HP)Tel: (000) [address]Tupnwnnqr, [place] [phone] (WP) [phone]: 12/01/2017 Secondary [facility] Mai [facility] Insurance:MEDICAID OF [facility]: [facility] Number: [id number] Repository [id number] [facility] Date:2017-12-01 - [facility] [id number] [place] [address]Qdv: Name:RICARDO LAWRENCE [address]Enmpghze, [place] (HP)Tel: 000) [phone]: (WP) [phone] 11/27/2017 SANDY CANO Primary SANDY BEAVER [facility] Insurance:MEDICARE [facility] [place] DISABILITY[place]olic Repository [address]Rkc: 234) Number: [phone] () [id number] Date: 11/27/2017 Secondary SANDY BEAVER [facility] [place] Number: Repository [id number] Date: 10/04/2017 SANDY [id number] Primary SANDY BEAVER [facility] Insurance:MEDICAREPoli [place] Number: Repository [id number]: 234 [id number] [phone] () Date:2012-12-03[address]CJMU CODE [id number], [place] [address]QM: 10/04/2017 Secondary [facility] Insurance:MEDICAID OF [place] Number: Repository [id number] Date:8332-01-70[address], [place] [address]NH:
== END 2018-09-20 15:00 | disposition home or self-care (01) ==
LOC: SDC 09:56 → AC 09:57
PROVIDERS: Family Provider Internal Medicine; PCP Internal Medicine; Referring Provider Surgery; Visit Provider Surgery
PROC: (CPT 36821; principal; 2018-09-20 11:45)
DX: T82.898A Other specified complication of vascular prosthetic devices, implants and grafts, initial encounter (principal); I13.11 Hypertensive heart and chronic kidney disease without heart failure, with stage 5 chronic kidney disease, or end stage renal disease; E11.22 Type 2 diabetes mellitus with diabetic chronic kidney disease; N18.5 Chronic kidney disease, stage 5; Z99.2 Dependence on renal dialysis; E07.9 Disorder of thyroid, unspecified; E78.00 Pure hypercholesterolemia, unspecified; Z79.82 Long term (current) use of aspirin; Z79.4 Long term (current) use of insulin; Z79.899 Other long term (current) drug therapy; Z87.891 Personal history of nicotine dependence
CPT/HCPCS: 01844; 36821; 36415; 80048; 82962; 85027; 93005; J2405

== ENCOUNTER → 2018-10-16 14:06 | Outpatient (CLI) | payer MEDICARE, MEDICAID, SELFPAY ==
[2018-09-20 10:20] VITALS: BMI 28.0
--- NOTE | 2018-10-16 14:08 | AVDS_ITS ---
Reason For Study: Venous stenosis LEFT LT [place] artery - 427.0 cm/s Volume flow - 1438 cc/min Lt Anastomosis - 691 cm/s LT Prox graft - 663 cm/s Volume flow - 301 cc/min LT Mid graft - 203 cm/s Volume flow - 791 cc/min LT Distal graft - 103 cm/s Volume flow - 397 cc/min LT Outflow - 139 cm/s Volume flow - 819 cc/min. Interpretation Summary Greater than 50% stenosis proximal left hemodialysis fistula Variable volume flows are noted throughout the fistula Ordering Physician: Guillermina Matthews PA-C Referring Physician: Maldonado Denny Performed By: Ingrid Wild RVT
== END ==
PROVIDERS: Family Provider Internal Medicine; PCP Internal Medicine; Referring Provider Physician Assistant; Visit Provider Physician Assistant
DX: Z99.2 Dependence on renal dialysis (principal)
CPT/HCPCS: 93990

== ENCOUNTER 2018-12-06 09:44 | Day surgery (SDC) | payer MEDICARE, MEDICAID, SELFPAY ==
[2018-10-25 10:19] VITALS: BMI 28.0
[2018-11-26 14:46] VITALS: BMI 28.0
[2018-12-06] VITALS (7 sets, daily range): BP systolic 115–136; BP diastolic 46–53; PULSE 69–77; RESP 16–18; TEMP 36.3–36.7; O2SAT 92–100; BMI 28.0
[2018-12-06 10:18] LABS: Hematocrit 32.6 % (37-47); Hemoglobin 10.6 g/dl (12.0-15.0); Mean Corp Hgb Conc 32.5 g/gl (32-36); Mean Corpuscular Hgb 30.2 pg (27.0-32.0); Mean Corpuscular Volume 92.9 fL (81-99); Mean Platelet Vol. 8.9 fl (6.2-12.0); Platelet Count 158 K/mm3 (150-450); RBC Distribution Width CV 13.3 % (11.6-14.6); RBC Distribution Width SD 45.1 fl (35.1-43.9); Red Blood Count 3.51 M/mm3 (4.2-5.4); White Blood Count 4.8 K/mm3 (4.4-11.0)
[2018-12-06 10:19] LABS: Scan Indicated on CBC? Y/N NO
[2018-12-06 10:22] LABS: Anion Gap 8 (5-15); BUN 26 mg/dL (7-18); BUN/Creat Ratio 5.5 RATIO (10-20); Calcium,Total 8.5 mg/dL (8.5-10.1); Chloride 100 mmol/L (98-107); Creatinine, Serum 4.69 mg/dL (0.55-1.02); EST Glomerular Filtration Rate 10 mL/min (>60); Est Glom Filt Rate - Afr Amer 12 mL/min (>60); Estimated Creatinine Clearance 11.34 ml/min; Glucose 233 mg/dL (74-106); Potassium 4.3 mmol/L (3.5-5.1); Sodium Level 137 mmol/L (136-145)
[2018-12-06] MEDS: Heparin Injection (Vial) 5,000 UNIT/ML VIAL 5000 UNIT (13:25)
[2018-12-06] MEDS: Bupivacaine Mpf 0.5% 30 ML VIAL (13:30)
--- NOTE | 2018-12-06 16:00 | PCM.DC.FIST ---
Discharge Diet: Renal Diet Discharge Activity: May Not Drive - for 2-3 days or while taking narcotic pain medications., May Not Shower, May Take a Tub Bath - in 5 days. Lifting Restrictions: 5 pounds Keep extremity elevated above heart level: - - Keep arm elevated above the heart level for 3 days. Additional Activity Instructions:: Exercise hand vigorously with a stress ball. Call your doctor if your incision/area has: Continuous Slow Oozing, Sudden Increased Bleeding - apply pressure and call your doctor., Increased Pain/ Swelling, Increased Redness, Foul Smelling Discharge Call your doctor if you observe: Fever of 101 or Higher Suture Line Care: Avoid Pulling/Pushing, Avoid Pinching/Bending Cleanse incision/area with: Keep Dressing Clean & Dry Additional Dressing/Incision Instructions:: Elevate your left arm to limit swelling and for comfort. You may exercise her left hand with a stress ball. Leave the elastic bandage on for today and tomorrow. You may then remove the elastic wrap but continue to keep the incision clean and dry. Allergies/Adverse Reactions: Allergies chlorhexidine Allergy (Mild, Verified 11/26/18 14:45) rash codeine Allergy (Unknown, Verified 11/26/18 14:45) Unknown latex Allergy (Unknown, Verified 11/26/18 14:45) Unknown Penicillins Allergy (Unknown, Verified 11/26/18 14:45) Unknown Medications to take at Discharge amlodipine 10 mg tablet 10 mg PO DAILY 08/14/18 aspirin 81 mg tablet,delayed release 81 mg PO DAILY 08/14/18 atorvastatin 40 mg tablet 40 mg PO QHS 08/14/18 clonidine HCl 0.3 mg tablet 0.3 mg PO BID 08/14/18 insulin aspart U- 100 100 unit/mL subcutaneous pen 8 unit SC TID 08/14/18 levothyroxine 112 mcg capsule 112 mcg PO DAILY 08/14/18 lisinopril 20 mg tablet 20 mg PO BID tab 08/14/18 metoprolol tartrate 50 mg tablet 50 mg PO BID 08/14/18 vitamin B complex-vitamin C-folic acid 0.8 mg tablet 1 tab PO DAILY 08/14/18 Insulin Detemir [Levemir FlexPen] 50 units SUBCUT QHS 09/13/18 Hydrocodone Bitart/Apap 5-325 [Flushing 5MG-325MG] 1 tablet PO Q6H PRN PRN 3 Days #10 tablet 12/06/18 The following prescriptions were given: Hydrocodone Bitart/Apap 5-325 [Flushing 5MG-325MG] 1 tablet PO Q6H PRN PRN 3 Days #10 tablet PRN Reason: Pain Primary Care Physician: Maldonado Denny MD [Primary Care Provider] - Test Results: Test results from this visit will be discussed in further detail at your follow-up appointment, if applicable. Please Follow Up With: Ruben Hu MD - [phone] When: Call to make an appointment for follow up in 1 week.
--- NOTE | 2018-12-06 16:02 | PCM.OPRPT ---
Problem List (1) Problem with dialysis access Status: Acute Qualifiers: Encounter type: subsequent encounter Qualified Code(s): T82.898D - Other specified complication of vascular prosthetic devices, implants and grafts, subsequent encounter Report of Operation Date of Procedure: 12/06/18 Pre-Operative Diagnosis: Stage V chronic renal failure on hemodialysis via tunneled right internal jugular dialysis catheter is in need of long-term hemodialysis fistula access Post-Operative Diagnosis: Same Surgery/Procedure Performed:: Stage II transposition left upper arm basilic vein to brachial artery arteriovenous hemodialysis fistula creation Description of Surgical Findings:: Timeout and informed consent was obtained. 53-year-old female was taken the operating room placed by the table. She underwent monitored anesthesia care. 45 cc of 0.5% lidocaine and 10 cc of 1% lidocaine mixed 50-50 with 0.5% Marcaine was used as a local anesthetic about the procedure. The left upper extremity had been sterilely prepped and draped. Local was instilled. A longitudinal incision was made up the left upper arm. Sharp and blunt dissection was used to identify the basilic vein. It was carefully dissected free. Side branches were secured with 3-0 Vicryl ligatures and hemoclips were indicated. The dissection was performed all the way up to the antecubital space. The vein appeared to have good diameter. Having achieved that I measured the length of the vein plan for re-tunneling close to the surface then performed sharp blunt dissection to identify the brachial artery more proximally to the original anastomosis. The patient is noted to be heavy overweight as well as edematous. I dissected free the left upper arm brachial artery got circumferential control I then ligated the fistula distally with 3-0 Vicryl suture ligature. I tunneled the vein into the more superficial position. The patient then received thousand units of heparin intravenously. After adequate Strickling time peripheral vascular clamps were placed on the brachial artery and 11 blade was used to make arteriotomy was extended with Briones scissors and end-to-side venous to arterial anastomosis was created. Hemostasis was achieved with a couple repair sutures of 7-0 Prolene. Excellent positioning was achieved there was a good pulse thrill and bruit within the fistula at the completion. Inspection of the hand revealed that it was viable with Dopplers detected triphasic signal at the radial pulse. The patient received 20 Thomson grams of protamine as reversal agent. The wound was closed with layers of interrupted 3-0 Vicryl. The skin edges proximal and running septic or 4-0 Monocryl. Steri-Strips Telfa soft roll John wrap dressings applied. Sponge and instrument and needle counts were reported to the surgeon to be correct. Blood loss was 100 cc. There were no apparent complications she was taken to the recovery area in satisfactory condition without apparent complication. Specimens none. Drains none. Blood loss 100 cc Ruben Hu M.D., F.A.C.S. Type of Anesthesia:: Local MAC
--- NOTE | 2018-12-06 16:40 | SUR.PHASEII ---
PT BROUGHT FROM OPERATING ROOM TO PACU, IVF INFUSING VIA HEMODIALYSIS CATHETER. VERBAL ORDER FROM DR Shalom MCDANIEL OBTAINED TO DC IVF AND FLUSH HEMODIALYSIS CATHETER PER IVT POLICY.
--- NOTE | 2018-12-06 16:50 | SUR.PHASEII ---
CALL PLACED TO NURSING PUMP INSTALLER TO REVIEW POLICY FOR FLUSHING HEMODIALYSIS CATHETER.
--- NOTE | 2018-12-06 17:47 | SUR.PHASEII ---
HEMODIALYSIS CATHETER FLUSHED PER IV FLUSH ORDER SET POLICY USING STERILE TECHNIQUE. NEW STERILE CAP PLACED ON CATHETER AFTER FLUSHING. STERILE DRESSING APPLIED OVER DIALYSIS CATHETER.
== END 2018-12-06 18:14 | disposition home or self-care (01) ==
LOC: SDC 09:45 → AC 09:46
PROVIDERS: Family Provider Internal Medicine; PCP Internal Medicine; Referring Provider Surgery; Visit Provider Surgery
PROC: (CPT 36819; principal; 2018-12-06 12:15)
DX: T82.858A Stenosis of other vascular prosthetic devices, implants and grafts, initial encounter (principal); I13.2 Hypertensive heart and chronic kidney disease with heart failure and with stage 5 chronic kidney disease, or end stage renal disease; E11.22 Type 2 diabetes mellitus with diabetic chronic kidney disease; N18.5 Chronic kidney disease, stage 5; I50.9 Heart failure, unspecified; E78.00 Pure hypercholesterolemia, unspecified; E06.9 Thyroiditis, unspecified; Z99.2 Dependence on renal dialysis; Z79.4 Long term (current) use of insulin; Z79.82 Long term (current) use of aspirin; Z79.899 Other long term (current) drug therapy; Z87.891 Personal history of nicotine dependence; Z86.73 Personal history of transient ischemic attack (TIA), and cerebral infarction without residual deficits
CPT/HCPCS: 36819; 36415; 80048; 85027; A4216; J2405

== ENCOUNTER 2018-12-09 17:19 | Inpatient (IN) | payer MEDICARE, MEDICAID, SELFPAY ==
[2018-12-06 10:08] VITALS: BMI 28.0
[2018-12-09] VITALS (15 sets, daily range): BP systolic 123–160; BP diastolic 50–61; PULSE 67–91; RESP 16–18; TEMP 36.3–36.8; O2SAT 91–97; BMI 28.7; BMI 28.0
--- NOTE | 2018-12-09 19:17 | ED.RN ---
pt c/o increased pain. skin pink. pulse found with doppler. delayed refill. slight swelling to hannah upper ext. pt able to move all extremities. states she can feel touch but there is tingling.
[2018-12-09 19:28] LABS: Absolute Lymphocyte Count 1.15 X10^3/ul (0.83-4.51); Absolute Neutrophil Count 5.1 X10^3/uL (2.0-7.7); Anion Gap 10 (5-15); BUN 43 mg/dL (7-18); BUN/Creat Ratio 5.9 RATIO (10-20); Basophil# 0.03 X10^3/uL; Basophil% 0.4 % (0-1); Calcium,Total 8.7 mg/dL (8.5-10.1); Chloride 98 mmol/L (98-107); Creatinine, Serum 7.26 mg/dL (0.55-1.02); EST Glomerular Filtration Rate 6 mL/min (>60); Eosinophil# 0.14 X10^3/uL; Est Glom Filt Rate - Afr Amer 8 mL/min (>60); Estimated Creatinine Clearance 7.33 ml/min; Glucose 130 mg/dL (74-106); Hematocrit 28.5 % (37-47); Hemoglobin 9.6 g/dl (12.0-15.0); Lymphocyte # 1.15 X10^3/ul (4.0); Lymphocyte % 16.5 % (19-41); Mean Corp Hgb Conc 33.7 g/gl (32-36); Mean Corpuscular Hgb 30.9 pg (27.0-32.0); Mean Corpuscular Volume 91.6 fL (81-99); Mean Platelet Vol. 9.4 fl (6.2-12.0); Monocyte# 0.58 X10^3/uL; Monocyte% 8.3 % (0-10); Neutrophil # 5.06 X10^3/uL (2.7-7.7); Neutrophil % 72.5 % (47-70); Platelet Count 217 K/mm3 (150-450); Potassium 4.4 mmol/L (3.5-5.1); RBC Distribution Width CV 12.8 % (11.6-14.6); Red Blood Count 3.11 M/mm3 (4.2-5.4); Sodium Level 137 mmol/L (136-145)
[2018-12-09 19:33] LABS: POSITIVE COUNT NO; POSITIVE DIFFERENTIAL NO; POSITIVE MORPHOLOGY NO
--- NOTE | 2018-12-09 19:40 | HP.PCM_ITS ---
Problem List (1) Problem with dialysis access Status: Acute Qualifiers: Encounter type: initial encounter Qualified Code(s): T82.898A - Other specified complication of vascular prosthetic devices, implants and grafts, initial encounter History of Present Illness Date of Admission: 12/09/18 The patient is a 53 year old F who presents to the emergency room complaining of a cold left hand with numbness and decreased strength. On December 06, 2018 I performed stage II left upper extremity transposition basilic vein to brachial artery AV fistula creation. At the completion she had good capillary refill and a triphasic radial Doppler signal. Upon presentation in the emergency room Doppler signal has diminished and her hand has diminished capillary refill and is more cool. Findings are suspicious for an arterial steal Past Medical History Past Medical History (Chronic Problems): Chronic Problems (Last Reviewed 11/26/18 @ 14:44 by Kat Boogie) Hypertension (Chronic) Medical History: Medical History (Last Reviewed 11/26/18 @ 14:44 by Kat Boogie) Problem with dialysis access (Acute) T82.898A Hemorrhoids (Acute) K64.9 Acid reflux (Acute) K21.9 Constipation (Acute) K59.00 Anxiety (Acute) F41.9 Depression (Acute) F32.9 Hypertension (Chronic) I10 Heart disease (Acute) I51.9 Diabetes (Acute) E11.9 Thyroid disease (Acute) E07.9 Allergies chlorhexidine Allergy (Mild, Verified 12/09/18 17:37) rash codeine Allergy (Unknown, Verified 12/09/18 17:37) Unknown latex Allergy (Unknown, Verified 12/09/18 17:37) Unknown Penicillins Allergy (Unknown, Verified 12/09/18 17:37) Unknown Home Medications: Ambulatory Orders Medication Instructions Recorded amlodipine 10 mg tablet 10 mg PO DAILY 08/14/18 aspirin 81 mg tablet,delayed 81 mg PO DAILY 08/14/18 release atorvastatin 40 mg tablet 40 mg PO QHS 08/14/18 clonidine HCl 0.3 mg tablet 0.3 mg PO BID 08/14/18 insulin aspart U- 100 100 unit/mL 8 unit SC TID 08/14/18 subcutaneous pen levothyroxine 112 mcg capsule 112 mcg PO DAILY 08/14/18 lisinopril 20 mg tablet 20 mg PO BID tab 08/14/18 metoprolol tartrate 50 mg tablet 50 mg PO BID 08/14/18 vitamin B complex-vitamin C-folic 1 tab PO DAILY 08/14/18 acid 0.8 mg tablet Insulin Detemir [Levemir FlexPen] 50 units SUBCUT QHS 09/13/18 Surgical History: Surgical History (Last Reviewed 11/26/18 @ 14:44 by Kat Boogie) Hx of arteriovenostomy for renal dialysis (Acute) Z99.2 Left upper arm fistula creation- 09/20/18 Hx of bilateral breast reduction surgery (Acute) Z98.890 History of partial hysterectomy (Acute) Z90.711 History of bowel resection (Acute) Z98.890, Z90.49 Hx of appendectomy (Acute) Z90.49 Hx of cholecystectomy (Acute) Z90.49 Smoking Status: Former smoker Review of Systems Constitutional: Reports: - - Stable health otherwise. He had a full meal at 4 PM prior to coming to the emergency room Cardiovascular: Denies: Chest Pain Respiratory: Denies: Cough VTE Information - Inpt Only VTE Present on Admission: No Patient Problems: Active and Suspected Problems (Last Reviewed 11/26/18 @ 14:44 by Kat Boogie) Problem with dialysis access (Acute) - Physical Exam General: Alert, Oriented x3, Cooperative, No apparent distress HEENT: Atraumatic Neck: Supple Lungs: Clear to auscultation Cardiovascular: Regular rate, Regular Rhythm Abdomen: Soft Extremities: - - Excellent pulse and thrill and bruit within the left upper arm transposed basilic vein to brachial artery AV fistula, monophasic left radial and ulnar Doppler flow, persistently swollen left hand as it was preoperatively. Diminished capillary refill, diminished warmth Vital Signs Temp Pulse Resp BP Pulse Ox 98.0 F 85 16 152/54 H 97 12/09/18 17:22 12/09/18 17:22 12/09/18 17:22 12/09/18 17:22 12/09/18 17:22 Oxygen Delivery Method Room Air Weight: 162 lb 0.636 oz Body Mass Index (BMI) 28.7 Laboratory Tests Past 24 Hrs 12/09/18 12/09/18 19:10 19:10 WBC 7.0 RBC 3.11 L Hgb 9.6 L Hct 28.5 L MCV 91.6 MCH 30.9 MCHC 33.7 RDW 12.8 RDW Differential 41.0 Plt Count 217 MPV 9.4 Immature Gran % (Auto) 0.300 Neut % (Auto) 72.5 H Lymph % (Auto) 16.5 L [place] % (Auto) 8.3 Eos % (Auto) 2.0 Baso % (Auto) 0.4 Absolute Neuts (auto) 5.1 Absolute Lymphs (auto) 1.15 Total Counted Not Reportable Sodium 137 Potassium 4.4 Chloride 98 Carbon Dioxide 29.0 Anion Gap 10 BUN 43 H Creatinine 7.26 H Estim Creat Clear Calc 7.33 Est GFR (MDRD) Af Amer 8 L Est GFR (MDRD) Non-Af 6 L BUN/Creatinine Ratio 5.9 L Glucose 130 H Calcium 8.7 Assessment/Plan All Active Problems (Last Reviewed 11/26/18 @ 14:44 by Kat Boogie) Problem with dialysis access (Acute) Hx of arteriovenostomy for renal dialysis (Acute) Problem with dialysis access (Acute) Hx of bilateral breast reduction surgery (Acute) History of partial hysterectomy (Acute) History of bowel resection (Acute) Hx of appendectomy (Acute) Hx of cholecystectomy (Acute) Hemorrhoids (Acute) Acid reflux (Acute) Constipation (Acute) Anxiety (Acute) Depression (Acute) Heart disease (Acute) Diabetes (Acute) Thyroid disease (Acute) Findings are consistent with an arterial steal left upper extremity. Her symptoms appear to be severe enough that I recommend urgent intervention. We do not have the capacity of the noninvasive laboratory tonight to assist. I instructed the patient and her that I anticipate placing a restrictive band on the fistula. They are aware of the technique benefit risk complications. They are aware that the fistula may not be tightened enough or may be overtighten causing thrombosis or ongoing steal. They have had an opportunity to ask and have questions answered. I do not believe that we have the luxury of waiting till tomorrow to when the noninvasive vascular people artery available. I will perform this procedure utilizing intraoperative Doppler as a guide. Ruben Hu M.D., F.A.C.S.
--- NOTE | 2018-12-09 19:41 | DCINST_ITS ---
Discharge Diet: Renal Diet Discharge Activity: May Not Shower Allergies/Adverse Reactions: Allergies chlorhexidine Allergy (Mild, Verified 12/09/18 17:37) rash codeine Allergy (Unknown, Verified 12/09/18 17:37) Unknown latex Allergy (Unknown, Verified 12/09/18 17:37) Unknown Penicillins Allergy (Unknown, Verified 12/09/18 17:37) Unknown Medications to take at Discharge amlodipine 10 mg tablet 10 mg PO DAILY 08/14/18 aspirin 81 mg tablet,delayed release 81 mg PO DAILY 08/14/18 atorvastatin 40 mg tablet 40 mg PO QHS 08/14/18 clonidine HCl 0.3 mg tablet 0.3 mg PO BID 08/14/18 insulin aspart U- 100 100 unit/mL subcutaneous pen 8 unit SC TID 08/14/18 levothyroxine 112 mcg capsule 112 mcg PO DAILY 08/14/18 lisinopril 20 mg tablet 20 mg PO BID tab 08/14/18 metoprolol tartrate 50 mg tablet 50 mg PO BID 08/14/18 vitamin B complex-vitamin C-folic acid 0.8 mg tablet 1 tab PO DAILY 08/14/18 Insulin Detemir [Levemir FlexPen] 50 units SUBCUT QHS 09/13/18 Primary Care Physician: Maldonado Denny MD [Primary Care Provider] - Test Results: Test results from this visit will be discussed in further detail at your follow- up appointment, if applicable. Please Follow Up With: Ruben Hu MD - [phone] When: Call tomorrow with progress report please
[2018-12-09] MEDS: Bupivacaine Mpf 0.5% 30 ML VIAL (20:20)
--- NOTE | 2018-12-09 20:50 | PCM.OPRPT ---
Problem List (1) Problem with dialysis access Status: Acute Qualifiers: Encounter type: initial encounter Qualified Code(s): T82.898A - Other specified complication of vascular prosthetic devices, implants and grafts, initial encounter Report of Operation Date of Procedure: 12/09/18 Pre-Operative Diagnosis: Left hand arterial steal from arteriovenous fistula Post-Operative Diagnosis: Same Surgery/Procedure Performed:: Revision left upper extremity transposed basilic vein to brachial artery AV fistula with flow restricting graft. Vascu-Guard bovine patch, reference number the [id number], [id number] Description of Surgical Findings:: Timeout and informed consent was obtained 49-year-old female was taken to the operating underwent general anesthesia with clindamycin 900 g given intravenously preoperatively left upper extremity was prepped with Betadine because of chlorhexidine allergy 0.5% Marcaine was used as local anesthetic 10 cc was used the distal part of the incision was reopened and sharp dissection used to identify the vein and proximal portion of the fistula I used a 8 cm x 0.8 cm bovine patch I diminished the width of the patch wrapped around the proximal portion of the fistula secured there with interrupted 6-0 Prolene a couple of additional sutures of 6-0 Prolene was placed to help restrict the cuff. I had listened ahead of time with Doppler to the left radial and ulnar signals and after securing the cuff around the proximal portion of the fistula I now had regained triphasic flow to the hand. The hand appeared now to be pink warm and had much improved capillary refill and that the fistula itself still appears to have excellent flow. The wound was closed with a deep layer of interrupted 3-0 Vicryl skin edges proximal and running septic or 4-0 Monocryl noel were applied Telfa soft roll John wrap sponge instrument and needle counts were reported the surgeon correct blood loss was minimal she tolerated the procedure well was taken to the recovery area in satisfactory condition without apparent complication. The hand appears to be much more comfortable and viable Specimens none. Drains none. Blood loss minimal Ruben Hu M.D., F.A.C.S. Type of Anesthesia:: General Anesthesiologist: Josephine Smith
[2018-12-09 21:15] LABS: Bedside Glucose 124 mg/dL (70-110)
--- NOTE | 2018-12-09 22:14 | ED.VISSUMM ---
- ER Visit Summary Date of Service: 12/09/18 Chief Complaint: Cold hand History of Present Illness: The patient is a 53 F who underwent a surgery on with Dr. Pond to bring the fistula to the surface. She states that now her left hand feels cold and as does the forearm. 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 She also notes tingling and decreased sensation. Physical Examination: Afebrile vital signs are stable Gen: Well-nourished well-developed Head: Normocephalic atraumatic Eyes: Perrl EOMI ENT: TMs clear no rhinorrhea moist mucous membranes Neck: Supple no lymphadenopathy no JVD nontender CVS: Regular rate rhythm no murmurs normal S1-S2 Respiratory: No distress clear to auscultation bilaterally chest nontender Abdomen: Soft nontender nondistended normal bowel sounds no masses Back: Nontender Extremity: There is some edema and healing and surgical incision of the proximal left arm. From the elbow down the skin is cool and is brush or broom cutter in color than the left arm. Capillary refill of the right hand is less than 2 seconds capillary refill of the left hand is at about 4 seconds. She is able to make a assistant project engineer though weakly. She reports decreased sensation to me. Skin: Normal color no rash Neuro: alert orientated ?3 CN II-XII intact normal strength sensation reflexes gait cerebellar Psych: Normal affect normal mood Emergency Department Course and Treatment: I was able to see color flow Doppler of the radial and ulnar arteries inferior to a old dialysis fistula at the wrist. I spoke with on-call surgery Dr. Romo. She has come to the emergency department and evaluate the patient. She spoke with Dr. Hu who is also evaluating the patient to determine if she should go to surgery. Final decision was not relayed to this physician but the patient was taken to the operating room. Impression: 1. Vascular steal left arm This note was generated with [employer] dictation software. It may contain incorrect words, spelling, and punctuation that were not noted in review of the chart prior to signing
--- NOTE | 2018-12-09 22:32 | ED.DCSUM_ITS ---
- ER Visit Summary Date of Service: 12/09/18 Chief Complaint: Cold hand History of Present Illness: The patient is a 53 F who underwent a surgery on with Dr. Pond to bring the fistula to the surface. She states that now her left hand feels cold and as does the forearm. 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 She also notes tingling and decreased sensation. Physical Examination: Afebrile vital signs are stable Gen: Well-nourished well-developed Head: Normocephalic atraumatic Eyes: Perrl EOMI ENT: TMs clear no rhinorrhea moist mucous membranes Neck: Supple no lymphadenopathy no JVD nontender CVS: Regular rate rhythm no murmurs normal S1-S2 Respiratory: No distress clear to auscultation bilaterally chest nontender Abdomen: Soft nontender nondistended normal bowel sounds no masses Back: Nontender Extremity: There is some edema and healing and surgical incision of the proximal left arm. From the elbow down the skin is cool and is medart operator in color than the left arm. Capillary refill of the right hand is less than 2 seconds capillary refill of the left hand is at about 4 seconds. She is able to make a supervisor scrap preparation though weakly. She reports decreased sensation to me. Skin: Normal color no rash Neuro: alert orientated ?3 CN II-XII intact normal strength sensation reflexes gait cerebellar Psych: Normal affect normal mood Emergency Department Course and Treatment: I was able to see color flow Doppler of the radial and ulnar arteries inferior to a old dialysis fistula at the wrist. I spoke with on-call surgery Dr. Romo. She has come to the emergency department and evaluate the patient. She spoke with Dr. Hu who is also evaluating the patient to determine if she should go to surgery. Final decision was not relayed to this physician but the patient was taken to the operating room. Impression: 1. Vascular steal left arm This note was generated with zlien dictation software. It may contain incorrect words, spelling, and punctuation that were not noted in review of the chart prior to signing
--- NOTE | 2018-12-09 23:15 | RAD_ITS ---
HISTORY: sob EXAM/TECHNIQUE: XR Chest 1 View: COMPARISON: None. FINDINGS: # of images incl. paperwork: 1 Mild elevation right hemidiaphragm. Mild blunting right costophrenic sulcus. Mild infrahilar densities bilaterally. More cephalad lungs are clear. No apparent pneumothorax. Heart size within normal limits for technique. Dual-lumen catheter via right IJ, extends into the right atrium. Cholecystectomy clips right upper quadrant. RAD/Chest 1 View IMPRESSION: Mild infrahilar densities could represent mild edema or pneumonia or atelectasis/scarring. Comparison with priors would be helpful. Blunting right costophrenic sulcus. Small pleural effusion is possible. If the patient is able standing PA and lateral chest radiographs might better evaluate. at 2345 Reported and signed by: Jamir Dailey MD Electronically Signed: Jamir Dailey, at 23:44 EDT Tel , Service support ,
--- NOTE | 2018-12-09 23:23 | CON.PCM_ITS ---
Problem List (1) Depression Status: Acute (2) Hypertension Status: Chronic (3) Heart disease Status: Acute (4) Diabetes Status: Acute (5) Thyroid disease Status: Acute Reason for Consult Date of Consultation: 12/09/18 Reason for Consultation: Post operative hypoxemia History of Present Illness: The patient is a 53 year old F with a significant history of depression; diabetes; hypertension; heart disease; thyroid disease who had a revision of his fistula and post operatively developed hypoxia with oxygen saturation about 66%. Patient reported that she had a revision of her fistula on 2018. She developed progressively worsening numbness of her left forearm, where her fistula is. Subsequently she came in for a revision as stated above and was noted to have decreased oxygen saturation which readily picked up with taking a deep breath. Patient was admitted to the hospital for observation. At the time of evaluating patient's oxygen saturation was 93% on room air. Past Medical History Past Medical History (Chronic Problems): Chronic Problems (Last Reviewed 12/10/18 @ 06:51 by Jose Guadalupe Cui MD) Hypertension (Chronic) Medical History: Medical History (Last Reviewed 12/10/18 @ 06:51 by Jose Guadalupe Cui MD) Problem with dialysis access (Acute) T82.898A Hemorrhoids (Acute) K64.9 Acid reflux (Acute) K21.9 Constipation (Acute) K59.00 Anxiety (Acute) F41.9 Depression (Acute) F32.9 Hypertension (Chronic) I10 Heart disease (Acute) I51.9 Diabetes (Acute) E11.9 Thyroid disease (Acute) E07.9 Allergies chlorhexidine Allergy (Mild, Verified 12/09/18 17:37) rash codeine Allergy (Unknown, Verified 12/09/18 17:37) Unknown latex Allergy (Unknown, Verified 12/09/18 17:37) Unknown Penicillins Allergy (Unknown, Verified 12/09/18 17:37) Unknown Home Medications: Ambulatory Orders Medication Instructions Recorded amlodipine 10 mg tablet 10 mg PO DAILY 08/14/18 aspirin 81 mg tablet,delayed 81 mg PO DAILY 08/14/18 release atorvastatin 40 mg tablet 40 mg PO QHS 08/14/18 clonidine HCl 0.3 mg tablet 0.3 mg PO BID 08/14/18 insulin aspart U- 100 100 unit/mL 8 unit SC TID 08/14/18 subcutaneous pen levothyroxine 112 mcg capsule 112 mcg PO DAILY 08/14/18 lisinopril 20 mg tablet 20 mg PO BID tab 08/14/18 metoprolol tartrate 50 mg tablet 50 mg PO BID 08/14/18 vitamin B complex-vitamin C-folic 1 tab PO DAILY 08/14/18 acid 0.8 mg tablet Insulin Detemir [Levemir FlexPen] 50 units SUBCUT QHS 09/13/18 Surgical History: Surgical History (Last Reviewed 12/10/18 @ 06:51 by Jose Guadalupe Cui MD) Hx of arteriovenostomy for renal dialysis (Acute) Z99.2 Left upper arm fistula creation- 09/20/18 Hx of bilateral breast reduction surgery (Acute) Z98.890 History of partial hysterectomy (Acute) Z90.711 History of bowel resection (Acute) Z98.890, Z90.49 Hx of appendectomy (Acute) Z90.49 Hx of cholecystectomy (Acute) Z90.49 Lives: Spouse/ Significant Other Smoking Status: Former smoker - *Family History Maternal Family History: Family History (Last Reviewed 12/10/18 @ 06:52 by Jose Guadalupe Cui MD) Brother Kidney disease Mother Cancer Father Colon cancer Review of Systems Constitutional: Denies: Chills, Fever, Weight Change HEENT: Denies: Head Aches, Sinus Congestion, Sinus Drainage Cardiovascular: Denies: Chest Pain, Palpitations Respiratory: Denies: Cough, Shortness of breath at rest, Sputum production Gastrointestinal: Denies: Abdominal Pain, Nausea, Vomiting Genitourinary: Denies: Dysuria Musculoskeletal: Denies: Joint Pain, Joint Tenderness Skin: Denies: Rash, Wounds Neurological: Reports: Numbness - Right forearm preoperatively.. Denies: Focal weakness, Tingling Psychiatric: Denies: Anxiety, Depression, Homicidal Ideations, Suicidal Ideations Hematologic/ Lymphatic: Denies: Easy Bruising, Easy Bleeding Patient Problems: Active and Suspected Problems (Last Reviewed 12/10/18 @ 06:51 by Jose Guadalupe Cui MD) Problem with dialysis access (Acute) - Physical Exam General: Alert, Oriented x3, Cooperative HEENT: Atraumatic, PERRLA, EOMI, Normocephalic Neck: Supple, No JVD, Negative Carotid Bruits Lungs: Clear to auscultation, Normal air movement, - - Right upper chest with Vas-Cath. Cardiovascular: Regular rate, No murmurs Abdomen: Bowel Sounds Present, Soft, Non Tender Extremities: No edema, Capillary Refill Less than 3 Seconds, - - R Forearm wrapped Skin: No rashes, No breakdown Musculoskeletal: No Tenderness to Palpation of Joints or Extremities Neurological: Neuro grossly intact Psych/Mental Status: Normal Affect, Appropriate Vital Signs Temp Pulse Resp BP Pulse Ox 97.3 F L 85 16 149/61 H 92 12/09/18 22:45 12/09/18 22:45 12/09/18 22:45 12/09/18 22:45 12/09/18 22:45 Oxygen Flow Rate (L/min) 2.5 Oxygen Delivery Method Nasal Cannula Weight: 71.668 kg Body Mass Index (BMI) 28.0 Intake and Output for Last 24 Hours 12/07/18 12/08/18 12/09/18 23:59 23:59 23:59 Intake Total 700 / 700 Balance 700 / 700 Laboratory Tests Past 24 Hrs 12/09/18 12/09/18 19:10 19:10 WBC 7.0 RBC 3.11 L Hgb 9.6 L Hct 28.5 L MCV 91.6 MCH 30.9 MCHC 33.7 RDW 12.8 RDW Differential 41.0 Plt Count 217 MPV 9.4 Immature Gran % (Auto) 0.300 Neut % (Auto) 72.5 H Lymph % (Auto) 16.5 L [place] % (Auto) 8.3 Eos % (Auto) 2.0 Baso % (Auto) 0.4 Absolute Neuts (auto) 5.1 Absolute Lymphs (auto) 1.15 Total Counted Not Reportable Sodium 137 Potassium 4.4 Chloride 98 Carbon Dioxide 29.0 Anion Gap 10 BUN 43 H Creatinine 7.26 H Estim Creat Clear Calc 7.33 Est GFR (MDRD) Af Amer 8 L Est GFR (MDRD) Non-Af 6 L BUN/Creatinine Ratio 5.9 L Glucose 130 H Calcium 8.7 POC Glucose 12/09/18 21:13 POC Glucose 124 H Assessment/Plan All Active Problems (Last Reviewed 12/10/18 @ 06:51 by Jose Guadalupe Cui MD) Problem with dialysis access (Acute) Hx of arteriovenostomy for renal dialysis (Acute) Problem with dialysis access (Acute) Hx of bilateral breast reduction surgery (Acute) History of partial hysterectomy (Acute) History of bowel resection (Acute) Hx of appendectomy (Acute) Hx of cholecystectomy (Acute) Hemorrhoids (Acute) Acid reflux (Acute) Constipation (Acute) Anxiety (Acute) Depression (Acute) Heart disease (Acute) Diabetes (Acute) Thyroid disease (Acute) The patient is a 53 year old F with a significant history of depression; diabetes; hypertension; heart disease; thyroid disease who had a revision of his fistula and post operatively developed hypoxia. Postoperative hypoxia. Chest x-ray was unremarkable. Chest x-ray was independently reviewed. I agree with radiology interpretation. Incentive spirometer was ordered Continuous pulse oximetry. Problem with dialysis fistula. Status post fistula revision General surgery is following. Renal disease Patient report that her next dialysis is on 12/10/2018 at outside facility at 5:30 AM. Will consult nephrology for probable dialysis while inpatient. Diabetes mellitus On presentation her blood glucose was acceptable, 124 but not within hospital goal of 140-180. Home medication includes Levemir 50 units subcutaneous nightly; and Insulin lispro 8 units 3 times daily We will adjust his Levemir to Lantus 35 times nightly and lispro 5 units subcutaneous 3 times daily with meals. We will add correction scale regimen. Hypothyroidism Synthroid continued Hypertension Amlodipine and lisinopril continued Metoprolol continued Catapres continued Trend blood pressures and adjust blood pressure medications. Hyperlipidemia Lipitor continued DVT prophylaxis Subcutaneous heparin ordered. Anticipate patient will be discharged home if her oxygen saturation remains above 90% on room air. Thank you for consulting internal medicine will continue to follow. Code Visit Inpatient E&M: [id number] [facility] H[facility] L3
[2018-12-09] MEDS: Ipratropium/Albuterol Sulfate 3 ML AMPUL.NEB INHALATION (23:36)
[2018-12-10] VITALS (10 sets, daily range): BP systolic 135–155; BP diastolic 47–63; PULSE 78–97; RESP 16–20; TEMP 36.7–37; O2SAT 83–100
[2018-12-10] MEDS: HYDROcodone Bitartrate/Apap 5/325 Tablet PO ×4 (00:03→19:20)
--- NOTE | 2018-12-10 00:10 | NURSING ---
Pt with continuous pulse ox. Upon admission to floor SpO2 94% on r/a. SpO2 dropped to 81% on r/a while pt was resting in bed, placed pt on 3L NC.
[2018-12-10 00:35] LABS: Bedside Glucose 189 mg/dL (70-110)
--- NOTE | 2018-12-10 05:47 | NURSING ---
0545 Pt has not voided. Arrived to floor at 0010. Bladder scanned patient. 186 cc. Advised patient to let RNs know if she becomes uncomfortable.H
--- NOTE | 2018-12-10 06:00 | PCM.PN.SRG ---
Patient Problems: Active and Suspected Problems (Last Reviewed 11/26/18 @ 14:44 by Kat Boogie) Problem with dialysis access (Acute) Subjective: Pt notes warm pink left hand, c/o persistent numbness, no pain - Physical Exam Extremities: - - good warmth and cap refill left hand, good triphasic left radial--strong pulse thrill and bruit left upper arm Vital Signs Temp Pulse Resp BP Pulse Ox 98.6 F 93 18 139/61 H 97 12/10/18 03:10 12/10/18 03:10 12/10/18 03:10 12/10/18 03:10 12/10/18 03:10 Oxygen Flow Rate (L/min) 1 Oxygen Delivery Method Nasal Cannula Weight: 158 lb Body Mass Index (BMI) 28.0 Intake and Output for Last 24 Hours 12/08/18 12/09/18 12/10/18 23:59 23:59 23:59 Intake Total 700 / 700 0 / 0 Balance 700 / 700 0 / 0 Laboratory Tests Past 24 Hrs 12/09/18 12/09/18 19:10 19:10 WBC 7.0 RBC 3.11 L Hgb 9.6 L Hct 28.5 L MCV 91.6 MCH 30.9 MCHC 33.7 RDW 12.8 RDW Differential 41.0 Plt Count 217 MPV 9.4 Immature Gran % (Auto) 0.300 Neut % (Auto) 72.5 H Lymph % (Auto) 16.5 L [place] % (Auto) 8.3 Eos % (Auto) 2.0 Baso % (Auto) 0.4 Absolute Neuts (auto) 5.1 Absolute Lymphs (auto) 1.15 Total Counted Not Reportable Sodium 137 Potassium 4.4 Chloride 98 Carbon Dioxide 29.0 Anion Gap 10 BUN 43 H Creatinine 7.26 H Estim Creat Clear Calc 7.33 Est GFR (MDRD) Af Amer 8 L Est GFR (MDRD) Non-Af 6 L BUN/Creatinine Ratio 5.9 L Glucose 130 H Calcium 8.7 POC Glucose 12/10/18 12/09/18 00:27 21:13 POC Glucose 189 H 124 H Medical Necessity - Tobacco Use Smoking Status: Former smoker Assessment/Plan All Active Problems (Last Reviewed 11/26/18 @ 14:44 by Kat Boogie) Problem with dialysis access (Acute) Hx of arteriovenostomy for renal dialysis (Acute) Problem with dialysis access (Acute) Hx of bilateral breast reduction surgery (Acute) History of partial hysterectomy (Acute) History of bowel resection (Acute) Hx of appendectomy (Acute) Hx of cholecystectomy (Acute) Hemorrhoids (Acute) Acid reflux (Acute) Constipation (Acute) Anxiety (Acute) Depression (Acute) Heart disease (Acute) Diabetes (Acute) Thyroid disease (Acute) Pt needs to be OOB and working on IS Anticipate DC today if nursing can assist with IS
[2018-12-10] MEDS: Levothyroxine 112 MCG Tablet PO (06:33)
--- NOTE | 2018-12-10 06:45 | NURSING ---
Dr. Gerard cbaezas for consult
--- NOTE | 2018-12-10 07:59 | PN_ITS ---
Patient Problems: Active and Suspected Problems (Last Reviewed 12/10/18 @ 06:51 by Jose Guadalupe Cui MD) Problem with dialysis access (Acute) Subjective: Patient is a 53-year-old lady who past medical history significant for end-stage renal disease on hemodialysis underwent revision of her fistula on 12/10/2018 the hospitalist service was consulted for management of hypoxia Patient seen still remains on oxygen did encourage the use of incentive spirometry. Plan is for patient to be discharged for her dialysis later on in the afternoon at [facility] if her oxygen saturation stays above 90 Objective: GENERAL: cooperative HEENT: Atraumatic; moist oral mucosa EYES; Anicteric, Normal Conjunctiva NECK; supple, normal thyroid, no distended JVD. RESPIRATORY: Diminished to auscultation bilaterally, CARDIOVASCULAR: Regular S1 S2, no audible murmurs GI: soft, non-tender, normoactive bowel sounds, : No Renal angle tenderness; EXTREMITIES: No edema, no clubbing, no cyanosis. MUSCULOSKELETAL: No Joint Tenderness; no muscle waisting NEURO: Awake; no lateralizing signs. SKIN: No Rash PSYCH; Normal affect Vitals/I&O's: Vital Signs Temp Pulse Resp BP Pulse Ox 98.6 F 93 18 139/61 H 97 12/10/18 03:10 12/10/18 03:10 12/10/18 03:10 12/10/18 03:10 12/10/18 03:10 Oxygen Flow Rate (L/min) 1 Oxygen Delivery Method Nasal Cannula Weight: 71.668 kg Body Mass Index (BMI) 28.0 Intake and Output for Last 24 Hours 12/08/18 12/09/18 12/10/18 23:59 23:59 23:59 Intake Total 700 / 700 125 / 125 Output Total 0 / 0 Balance 700 / 700 125 / 125 Laboratory Results 12/09/18 19:10: Sodium 137, Potassium 4.4, Chloride 98, Carbon Dioxide 29.0, Anion Gap 10, BUN 43 H, Creatinine 7.26 H, Estim Creat Clear Calc 7.33, Est GFR (MDRD) Af Amer 8 L, Est GFR (MDRD) Non-Af 6 L, BUN/Creatinine Ratio 5.9 L, Glucose 130 H, Calcium 8.7 12/09/18 19:10: WBC 7.0, RBC 3.11 L, Hgb 9.6 L, Hct 28.5 L, MCV 91.6, MCH 30.9, MCHC 33.7, RDW 12.8, RDW Differential 41.0, Plt Count 217, MPV 9.4, Immature Gran % (Auto) 0.300, Neut % (Auto) 72.5 H, Lymph % (Auto) 16.5 L, [place] % (Auto) 8.3, Eos % (Auto) 2.0, Baso % (Auto) 0.4, Absolute Neuts (auto) 5.1, Absolute Lymphs (auto) 1.15, Total Counted Not Reportable 12/09/18 21:13: POC Glucose 124 H 12/10/18 00:27: POC Glucose 189 H Current Medications Acetaminophen (Tylenol) 650 mg PO Q6H PRN PRN PRN Reason: PAIN Hydrocodone Bitart/Acetaminophen ([place] 5mg-325mg) 1 - 2 tablet PO Q4H PRN PRN PRN Reason: PAIN Last Admin: 12/10/18 04:18 Dose: 2 tablet Amlodipine Besylate (Norvasc) 10 mg PO DAILY [facility]) [facility] Atorvastatin Calcium (Lipitor) 40 mg PO QHS [facility] Clonidine (Catapres) 0.3 mg PO BID [facility] Dextrose (D50w Syringe) 0 gm IV X1 PRN; Protocol PRN Reason: Hypoglycemia Glucagon () 1 mg IM .X1 PRN PRN Reason: Hypoglycemia Heparin Sodium (Porcine) (Heparin Na) 5,000 unit SC Q8 [facility] Insulin Glargine (Lantus (Bkc)) 35 units SC QHS [facility] Insulin Human Lispro (Humalog Kwikpen (Bkc)) 0 unit SQ ACHS [facility]; Protocol Insulin Human Lispro (Humalog Kwikpen (Bkc)) 5 unit SC TIDAC [facility] Levothyroxine Sodium (Synthroid) 112 mcg PO DAILY@0600 [facility] Last Admin: 12/10/18 06:33 Dose: 112 mcg Lisinopril (Zestril) 20 mg PO BID [facility] Metoprolol Tartrate (Lopressor (Beta [place])) 50 mg PO BID [facility] Ondansetron HCl (Zofran) 4 mg IV Q8H PRN PRN PRN Reason: NAUSEA Sodium Chloride () 5 - 15 ml IV UD PRN PRN Reason: SALINE FLUSH Medical Necessity - Tobacco Use Smoking Status: Former smoker Assessment/Plan All Active Problems (Last Reviewed 12/10/18 @ 06:51 by Jose Guadalupe Cui MD) Problem with dialysis access (Acute) Hx of arteriovenostomy for renal dialysis (Acute) Problem with dialysis access (Acute) Hx of bilateral breast reduction surgery (Acute) History of partial hysterectomy (Acute) History of bowel resection (Acute) Hx of appendectomy (Acute) Hx of cholecystectomy (Acute) Hemorrhoids (Acute) Acid reflux (Acute) Constipation (Acute) Anxiety (Acute) Depression (Acute) Heart disease (Acute) Diabetes (Acute) Thyroid disease (Acute) Patient is a 53-year-old lady who past medical history significant for end-stage renal disease on hemodialysis underwent revision of her fistula on 12/10/2018 the hospitalist service was consulted for management of hypoxia 1. Postoperative hypoxia attributed to atelectasis did encourage the use of incentive spirometry. Patient was placed on oxygen titrated to keep pulse ox greater than 90 2. Status post revision of dialysis fistula by Dr. Hu on 12/09/2018 3. End-stage renal disease on hemodialysis on Wednesdays and Fridays 4. Diabetes mellitus type 2 did continue with home regimen 5. Hypothyroidism-patient is on levothyroxine home dose continued 6. Hypertension-blood pressure controlled, home medications continued with dose adjustment as needed 7. Dyslipidemia-patient is on statin therapy, continued at home dose 8. DVT prophylaxis SC heparin Code Visit Inpatient E&M: 37118 [place] [id number]
[2018-12-10] MEDS: Aspirin E.C. 81 MG Tablet PO (08:02)
[2018-12-10] MEDS: Insulin Lispro 100 UNIT/ML INSULN.PEN SQ ×3 (08:03→20:05)
[2018-12-10] MEDS: Insulin Lispro 100 UNIT/ML INSULN.PEN SC ×3 (08:03→20:03)
[2018-12-10] MEDS: cloNIDine HCl 0.1 MG Tablet 0.3 MG PO ×2 (09:32→22:38)
[2018-12-10] MEDS: amLODIPine 10 MG Tablet PO (09:32)
[2018-12-10] MEDS: Lisinopril 20 MG Tablet PO ×2 (09:32→22:40)
[2018-12-10] MEDS: Metoprolol Tartrate 50 MG Tablet PO ×2 (09:32→22:40)
[2018-12-10 09:40] LABS: Bedside Glucose 255 mg/dL (70-110)
[2018-12-10 12:00] LABS: Bedside Glucose 169 mg/dL (70-110)
[2018-12-10] MEDS: Heparin Injection (Vial) 5,000 UNIT/ML VIAL 5000 UNIT SC ×2 (13:29→22:38)
--- NOTE | 2018-12-10 15:22 | PCM.CONS.R ---
Consultation - Renal 12/10/18 PCP/ Referring MD: Requesting physician: Jose Guadalupe Sebastian Primary care physician: Maldonado Denny MD Reason for Consultation:: ESRD renal mgmt - History of Present Illness History of Present Illness: The patient is a 53 year old F with ESRD due to diabetes and hypertension on hemodialysis at [facility] every Monday, Monday, Monday with Dr. Falk as her primary workforce development vice president. She was admitted on December 09 for arterial steal syndrome left arm following stage II procedure on December 06. She had increased pain with cool extremity, swelling, decreased sensation and dusky discoloration. She underwent revision of her AV fistula yesterday. Swelling and pain and coolness is improved today. She has itchy sensation of her arm now which she did not have prior to admit. She continues to have a thrill and bruit over her AV fistula. Her last dialysis was on Monday at the outpatient clinic. She has been dialyzed with her tunneled dialysis catheter with the current catheter as her third one placed in May 2018. She had a failed left forearm AV fistula prior to her current AV fistula placed on 09/20/18 in the left upper arm. Her discharge was held and hospitalist was consulted for hypoxia with oxygen saturation about 66% postoperatively. She is unable to be weaned off oxygen successfully. Her repeat oxygenation on room air was low at 83% today. She is not on oxygen at home. Denied any chest pain no shortness of breath. She does complain of a nonproductive cough started last night. She is using IS. She denied any fever or chills. She is scheduled for her routine hemodialysis in the hospital at the present time. - Allergies Allergies: Allergies chlorhexidine Allergy (Mild, Verified 12/09/18 17:37) rash codeine Allergy (Unknown, Verified 12/09/18 17:37) Unknown latex Allergy (Unknown, Verified 12/09/18 17:37) Unknown Penicillins Allergy (Unknown, Verified 12/09/18 17:37) Unknown - Current Medications Current Medications: Current Medications Acetaminophen (Tylenol) 650 mg PO Q6H PRN PRN PRN Reason: PAIN Hydrocodone Bitart/Acetaminophen ([place] 5mg-325mg) 1 - 2 tablet PO Q4H PRN PRN PRN Reason: PAIN Last Admin: 12/10/18 09:31 Dose: 2 tablet Amlodipine Besylate (Norvasc) 10 mg PO DAILY [facility] Last Admin: 12/10/18 09:32 Dose: 10 mg Aspirin (Ecotrin) 81 mg PO DAILYCM [facility] Last Admin: 12/10/18 08:02 Dose: 81 mg Atorvastatin Calcium (Lipitor) 40 mg PO QHS [facility] Clonidine (Catapres) 0.3 mg PO BID [facility] Last Admin: 12/10/18 09:32 Dose: 0.3 mg Dextrose (D50w Syringe) 0 gm IV X1 PRN; Protocol PRN Reason: Hypoglycemia Glucagon () 1 mg IM .X1 PRN PRN Reason: Hypoglycemia Heparin Sodium (Porcine) (Heparin Na) 5,000 unit SC Q8 [facility] Last Admin: 12/10/18 13:29 Dose: 5,000 unit Insulin Glargine (Lantus (Bkc)) 35 units SC QHS [facility] Insulin Human Lispro (Humalog Kwikpen (Bkc)) 0 unit SQ ACHS [facility]; Protocol Last Admin: 12/10/18 11:56 Dose: 4 u Insulin Human Lispro (Humalog Kwikpen (Bkc)) 5 unit SC TIDAC [facility] Last Admin: 12/10/18 11:56 Dose: 5 u Levothyroxine Sodium (Synthroid) 112 mcg PO DAILY@0600 [facility] Last Admin: 12/10/18 06:33 Dose: 112 mcg Lisinopril (Zestril) 20 mg PO BID [facility] Last Admin: 12/10/18 09:32 Dose: 20 mg Metoprolol Tartrate (Lopressor (Beta Laurence)) 50 mg PO BID [facility] Last Admin: 12/10/18 09:32 Dose: 50 mg Ondansetron HCl (Zofran) 4 mg IV Q8H PRN PRN PRN Reason: NAUSEA Sodium Chloride () 5 - 15 ml IV UD PRN PRN Reason: SALINE FLUSH - Past Medical History Past Medical History (Chronic Problems): Chronic Problems (Last Reviewed 12/10/18 @ 06:51 by Jose Guadalupe Cui MD) Hypertension (Chronic) - Past Surgical History Surgical History: - - AV fistula VERNON 09/20/18 with stage 2 procedure 12/06/18, failed left forearm fistula. 3 tunneled dialysis catheters - Social History Smoking Status: Former smoker - Family History Maternal Family History: Family History (Last Reviewed 12/10/18 @ 06:52 by Jose Guadalupe Cui MD) Brother Kidney disease Mother Cancer Father Colon cancer Review of Systems Constitutional: Denies: Anorexia, Chills, Fever Eyes: Denies: Vision Change HEENT: Reports: - - cataracts Cardiovascular: Reports: Edema. Denies: Chest Pain Gastrointestinal: Denies: Abdominal Pain, Nausea, Vomiting Genitourinary: Denies: Dysuria Musculoskeletal: Reports: - - left arm pain, swelling, numbness, purplish discoloration left arm Skin: Denies: Rash Neurological: Reports: Numbness - left arm with swelling. Denies: Change in Speech, Tremor, Seizures Psychiatric: Reports: Depression Hematologic/ Lymphatic: Reports: Anemia Patient Problems: Active and Suspected Problems (Last Reviewed 12/10/18 @ 06:51 by Jose Guadalupe Cui MD) Acute respiratory failure with hypoxia (Acute) Problem with dialysis access (Acute) - Physical Exam General: Alert, Oriented x3, Cooperative, No apparent distress Oral: Moist Mucosa Neck: Supple Lungs: Rales - left base Cardiovascular: Regular rate, Murmur Abdomen: Bowel Sounds Present, Soft, Non Tender, Obese, Hernia Extremities: Edema - BUE, BLE Skin: - - mild shinny skin left hand, swelling Musculoskeletal: No Muscle Wasting Neurological: Cranial nerves II-XII grossly intact Psych/Mental Status: Normal Affect, Appropriate, Alert and oriented to time, place, person, mood and affect Vital Signs Temp Pulse Resp BP Pulse Ox 98.0 F 78 16 135/57 H 93 12/10/18 14:30 12/10/18 14:30 12/10/18 14:30 12/10/18 14:30 12/10/18 14:30 Oxygen Flow Rate (L/min) 1 Oxygen Delivery Method Nasal Cannula Weight: 71.668 kg Body Mass Index (BMI) 28.0 Intake and Output for Last 24 Hours 12/08/18 12/09/18 12/10/18 23:59 23:59 23:59 Intake Total 700 / 700 225 / 225 Output Total 225 / 225 Balance 700 / 700 0 / 0 Laboratory Tests Past 24 Hrs 12/09/18 12/09/18 19:10 19:10 WBC 7.0 RBC 3.11 L Hgb 9.6 L Hct 28.5 L MCV 91.6 MCH 30.9 MCHC 33.7 RDW 12.8 RDW Differential 41.0 Plt Count 217 MPV 9.4 Immature Gran % (Auto) 0.300 Neut % (Auto) 72.5 H Lymph % (Auto) 16.5 L [place] % (Auto) 8.3 Eos % (Auto) 2.0 Baso % (Auto) 0.4 Absolute Neuts (auto) 5.1 Absolute Lymphs (auto) 1.15 Total Counted Not Reportable Sodium 137 Potassium 4.4 Chloride 98 Carbon Dioxide 29.0 Anion Gap 10 BUN 43 H Creatinine 7.26 H Estim Creat Clear Calc 7.33 Est GFR (MDRD) Af Amer 8 L Est GFR (MDRD) Non-Af 6 L BUN/Creatinine Ratio 5.9 L Glucose 130 H Calcium 8.7 POC Glucose 12/10/18 12/10/18 12/10/18 11:53 07:57 00:27 POC Glucose 169 H 255 H 189 H 12/09/18 21:13 POC Glucose 124 H Clinical Impression(s) from Imaging Studies Chest X-Ray 12/09/18 23:15 IMPRESSION: Mild infrahilar densities could represent mild edema or pneumonia or atelectasis/scarring. Comparison with priors would be helpful. Blunting right costophrenic sulcus. Small pleural effusion is possible. If the patient is able standing PA and lateral chest radiographs might better evaluate. at [id number] Reported and signed by: Jamir Dailey MD Electronically Signed: Jamir Dailey, at 23:44 EDT Tel , Service support , Assessment/Plan All Active Problems (Last Reviewed 12/10/18 @ 06:51 by Jose Guadalupe Cui MD) Acute respiratory failure with hypoxia (Acute) Problem with dialysis access (Acute) Hx of arteriovenostomy for renal dialysis (Acute) Problem with dialysis access (Acute) Hx of bilateral breast reduction surgery (Acute) History of partial hysterectomy (Acute) History of bowel resection (Acute) Hx of appendectomy (Acute) Hx of cholecystectomy (Acute) Hemorrhoids (Acute) Acid reflux (Acute) Constipation (Acute) Anxiety (Acute) Depression (Acute) Heart disease (Acute) Diabetes (Acute) Thyroid disease (Acute) 1. ESRD due to diabetes and hypertension on hemodialysis at [facility] unit every Monday, Monday, Monday with Dr. Falk as her primary workforce development vice president. Dialysis today using chronic orders. Currently on dialysis. 2. Acute hypoxia postoperatively requiring oxygen. Fluid removal as tolerated today. 3. Acute left AV fistula steal syndrome following stage II procedure on 12/06/18, s/p revision on 12/09. Swelling and pain improved. 4. Anemia of chronic disease continue LEANA therapy with hemodialysis 5. DM type II primary service management 6. Hypertension stable blood pressure 7. History of CHF currently without chest pain. 8. Hypothyroidism on hormonal replacement primary service management 9. History of failed left forearm AV fistula now with new left upper arm AV fistula.
--- NOTE | 2018-12-10 15:30 | CON.PCM_ITS ---
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 She was admitted on December 09 for arterial steal syndrome left arm following stage II procedure on December 06. She had increased pain with cool extremity, swelling, decreased sensation and dusky discoloration. She underwent revision of her AV fistula yesterday. Swelling and pain and coolness is improved today. She has itchy sensation of her arm now which she did not have prior to admit. She continues to have a thrill and bruit over her AV fistula. Her last dialysis was on Monday at the outpatient clinic. She has been dialyzed with her tunneled dialysis catheter with the current catheter as her third one placed in May 2018. She had a failed left forearm AV fistula prior to her current AV fistula placed on 09/20/18 in the left upper arm. Her discharge was held and hospitalist was consulted for hypoxia with oxygen saturation about 66% postoperatively. She is unable to be weaned off oxygen successfully. Her repeat oxygenation on room air was low at 83% today. She is not on oxygen at home. Denied any chest pain no shortness of breath. She does complain of a nonproductive cough started last night. She is using IS. She denied any fever or chills. She is scheduled for her routine hemodialysis in the hospital at the present time. - Allergies Allergies: Allergies chlorhexidine Allergy (Mild, Verified 12/09/18 17:37) rash codeine Allergy (Unknown, Verified 12/09/18 17:37) Unknown latex Allergy (Unknown, Verified 12/09/18 17:37) Unknown Penicillins Allergy (Unknown, Verified 12/09/18 17:37) Unknown - Current Medications Current Medications: Current Medications Acetaminophen (Tylenol) 650 mg PO Q6H PRN PRN PRN Reason: PAIN Hydrocodone Bitart/Acetaminophen ([place] 5mg-325mg) 1 - 2 tablet PO Q4H PRN PRN PRN Reason: PAIN Last Admin: 12/10/18 09:31 Dose: 2 tablet Amlodipine Besylate (Norvasc) 10 mg PO DAILY [facility] Last Admin: 12/10/18 09:32 Dose: 10 mg Aspirin (Ecotrin) 81 mg PO DAILYCM [facility] Last Admin: 12/10/18 08:02 Dose: 81 mg Atorvastatin Calcium (Lipitor) 40 mg PO QHS [facility] Clonidine (Catapres) 0.3 mg PO BID [facility] Last Admin: 12/10/18 09:32 Dose: 0.3 mg Dextrose (D50w Syringe) 0 gm IV X1 PRN; Protocol PRN Reason: Hypoglycemia Glucagon () 1 mg IM .X1 PRN PRN Reason: Hypoglycemia Heparin Sodium (Porcine) (Heparin Na) 5,000 unit SC Q8 [facility] Last Admin: 12/10/18 13:29 Dose: 5,000 unit Insulin Glargine (Lantus (Bkc)) 35 units SC QHS [facility] Insulin Human Lispro (Humalog Kwikpen (Bkc)) 0 unit SQ ACHS [facility]; Protocol Last Admin: 12/10/18 11:56 Dose: 4 u Insulin Human Lispro (Humalog Kwikpen (Bkc)) 5 unit SC TIDAC [facility] Last Admin: 12/10/18 11:56 Dose: 5 u Levothyroxine Sodium (Synthroid) 112 mcg PO DAILY@0600 [facility] Last Admin: 12/10/18 06:33 Dose: 112 mcg Lisinopril (Zestril) 20 mg PO BID [facility] Last Admin: 12/10/18 09:32 Dose: 20 mg Metoprolol Tartrate (Lopressor (Beta Laurence)) 50 mg PO BID [facility] Last Admin: 12/10/18 09:32 Dose: 50 mg Ondansetron HCl (Zofran) 4 mg IV Q8H PRN PRN PRN Reason: NAUSEA Sodium Chloride () 5 - 15 ml IV UD PRN PRN Reason: SALINE FLUSH - Past Medical History Past Medical History (Chronic Problems): Chronic Problems (Last Reviewed 12/10/18 @ 06:51 by Jose Guadalupe Cui MD) Hypertension (Chronic) - Past Surgical History Surgical History: - - AV fistula VERNON 09/20/18 with stage 2 procedure 12/06/18, failed left forearm fistula. 3 tunneled dialysis catheters - Social History Smoking Status: Former smoker - Family History Maternal Family History: Family History (Last Reviewed 12/10/18 @ 06:52 by Jose Guadalupe Cui MD) Brother Kidney disease Mother Cancer Father Colon cancer Review of Systems Constitutional: Denies: Anorexia, Chills, Fever Eyes: Denies: Vision Change HEENT: Reports: - - cataracts Cardiovascular: Reports: Edema. Denies: Chest Pain Gastrointestinal: Denies: Abdominal Pain, Nausea, Vomiting Genitourinary: Denies: Dysuria Musculoskeletal: Reports: - - left arm pain, swelling, numbness, purplish discoloration left arm Skin: Denies: Rash Neurological: Reports: Numbness - left arm with swelling. Denies: Change in Speech, Tremor, Seizures Psychiatric: Reports: Depression Hematologic/ Lymphatic: Reports: Anemia Patient Problems: Active and Suspected Problems (Last Reviewed 12/10/18 @ 06:51 by Jose Guadalupe Cui MD) Acute respiratory failure with hypoxia (Acute) Problem with dialysis access (Acute) - Physical Exam General: Alert, Oriented x3, Cooperative, No apparent distress Oral: Moist Mucosa Neck: Supple Lungs: Rales - left base Cardiovascular: Regular rate, Murmur Abdomen: Bowel Sounds Present, Soft, Non Tender, Obese, Hernia Extremities: Edema - BUE, BLE Skin: - - mild shinny skin left hand, swelling Musculoskeletal: No Muscle Wasting Neurological: Cranial nerves II-XII grossly intact Psych/Mental Status: Normal Affect, Appropriate, Alert and oriented to time, place, person, mood and affect Vital Signs Temp Pulse Resp BP Pulse Ox 98.0 F 78 16 135/57 H 93 12/10/18 14:30 12/10/18 14:30 12/10/18 14:30 12/10/18 14:30 12/10/18 14:30 Oxygen Flow Rate (L/min) 1 Oxygen Delivery Method Nasal Cannula Weight: 71.668 kg Body Mass Index (BMI) 28.0 Intake and Output for Last 24 Hours 12/08/18 12/09/18 12/10/18 23:59 23:59 23:59 Intake Total 700 / 700 225 / 225 Output Total 225 / 225 Balance 700 / 700 0 / 0 Laboratory Tests Past 24 Hrs 12/09/18 12/09/18 19:10 19:10 WBC 7.0 RBC 3.11 L Hgb 9.6 L Hct 28.5 L MCV 91.6 MCH 30.9 MCHC 33.7 RDW 12.8 RDW Differential 41.0 Plt Count 217 MPV 9.4 Immature Gran % (Auto) 0.300 Neut % (Auto) 72.5 H Lymph % (Auto) 16.5 L [place] % (Auto) 8.3 Eos % (Auto) 2.0 Baso % (Auto) 0.4 Absolute Neuts (auto) 5.1 Absolute Lymphs (auto) 1.15 Total Counted Not Reportable Sodium 137 Potassium 4.4 Chloride 98 Carbon Dioxide 29.0 Anion Gap 10 BUN 43 H Creatinine 7.26 H Estim Creat Clear Calc 7.33 Est GFR (MDRD) Af Amer 8 L Est GFR (MDRD) Non-Af 6 L BUN/Creatinine Ratio 5.9 L Glucose 130 H Calcium 8.7 POC Glucose 12/10/18 12/10/18 12/10/18 11:53 07:57 00:27 POC Glucose 169 H 255 H 189 H 12/09/18 21:13 POC Glucose 124 H Clinical Impression(s) from Imaging Studies Chest X-Ray 12/09/18 23:15 IMPRESSION: Mild infrahilar densities could represent mild edema or pneumonia or atelectasis/scarring. Comparison with priors would be helpful. Blunting right costophrenic sulcus. Small pleural effusion is possible. If the patient is able standing PA and lateral chest radiographs might better evaluate. at [id number] Reported and signed by: Jamir Dailey MD Electronically Signed: Jamir Dailey, at 23:44 EDT Tel , Service support , Assessment/Plan All Active Problems (Last Reviewed 12/10/18 @ 06:51 by Jose Guadalupe Cui MD) Acute respiratory failure with hypoxia (Acute) Problem with dialysis access (Acute) Hx of arteriovenostomy for renal dialysis (Acute) Problem with dialysis access (Acute) Hx of bilateral breast reduction surgery (Acute) History of partial hysterectomy (Acute) History of bowel resection (Acute) Hx of appendectomy (Acute) Hx of cholecystectomy (Acute) Hemorrhoids (Acute) Acid reflux (Acute) Constipation (Acute) Anxiety (Acute) Depression (Acute) Heart disease (Acute) Diabetes (Acute) Thyroid disease (Acute) 1. ESRD due to diabetes and hypertension on hemodialysis at [facility] unit every Monday, Monday, Monday with Dr. Falk as her primary sheet rock sander. Dialysis today using chronic orders. Currently on dialysis. 2. Acute hypoxia postoperatively requiring oxygen. Fluid removal as tolerated today. 3. Acute left AV fistula steal syndrome following stage II procedure on 12/06/18, s/p revision on 12/09. Swelling and pain improved. 4. Anemia of chronic disease continue LEANA therapy with hemodialysis 5. DM type II primary service management 6. Hypertension stable blood pressure 7. History of CHF currently without chest pain. 8. Hypothyroidism on hormonal replacement primary service management 9. History of failed left forearm AV fistula now with new left upper arm AV fistula.
[2018-12-10 16:26] LABS: Bedside Glucose 167 mg/dL (70-110)
--- NOTE | 2018-12-10 19:25 | DIALYSIS ---
HD X 3.5 HRS ON 2K BATH. UF-2000ML . TOLERATED WELL. EPOGEN AND VENOFER GIVEN. REPORT GIVEN TO FLOOR RN POST TREATMENT. VITALS STABLE
[2018-12-10] MEDS: Heparin 10,000 UNITS/10 ML Vial IV (19:30)
[2018-12-10] MEDS: Atorvastatin Calcium 40 MG Tablet PO (22:40)
[2018-12-10 22:51] LABS: Bedside Glucose 137 mg/dL (70-110)
[2018-12-11 01:51] LABS: Bedside Glucose 140 mg/dL (70-110)
[2018-12-11] MEDS: HYDROcodone Bitartrate/Apap 5/325 Tablet PO ×3 (01:53→12:12)
[2018-12-11 02:02] VITALS: BP 137/61; PULSE 100; RESP 16; TEMP 36.8; O2SAT 98
--- NOTE | 2018-12-11 02:39 | NURSING ---
Pt is on a continuous pulse ox. Sats dropping into upper 80's. Pt up in chair. Oxygen reapplied at 1L via n/c. Sats now 98%.
[2018-12-11 04:00] VITALS: O2SAT 100
[2018-12-11 04:46] VITALS: O2SAT 100
--- NOTE | 2018-12-11 06:18 | PCM.PN.BLA ---
Progress Note Pt still on oxygen Left hand less swollen and 1+radial pulse Strong pulse, thrill, bruit in fistula. Less are swelling since transposition I will plan office follow up in one week Tameka
[2018-12-11] MEDS: Heparin Injection (Vial) 5,000 UNIT/ML VIAL 5000 UNIT SC (06:38)
[2018-12-11] MEDS: Levothyroxine 112 MCG Tablet PO (06:38)
[2018-12-11 08:10] VITALS: BP 181/52; PULSE 100; RESP 16; TEMP 37; O2SAT 98
[2018-12-11] MEDS: Insulin Lispro 100 UNIT/ML INSULN.PEN SQ (08:11)
[2018-12-11] MEDS: Aspirin E.C. 81 MG Tablet PO (08:11)
[2018-12-11] MEDS: Insulin Lispro 100 UNIT/ML INSULN.PEN SC ×2 (08:11→12:07)
[2018-12-11] MEDS: amLODIPine 10 MG Tablet PO (08:12)
[2018-12-11] MEDS: cloNIDine HCl 0.1 MG Tablet 0.3 MG PO (08:12)
[2018-12-11] MEDS: Lisinopril 20 MG Tablet PO (08:12)
[2018-12-11] MEDS: Tamsulosin HCl 0.4 MG Capsule PO (08:14)
[2018-12-11] MEDS: Bisacodyl 5 MG Tablet 10 MG PO (08:14)
[2018-12-11 08:15] VITALS: PULSE 100
[2018-12-11] MEDS: Metoprolol Tartrate 50 MG Tablet PO (08:15)
--- NOTE | 2018-12-11 08:18 | PN_ITS ---
Patient Problems: Active and Suspected Problems (Last Reviewed 12/10/18 @ 06:51 by Jose Guadalupe Cui MD) Acute respiratory failure with hypoxia (Acute) Problem with dialysis access (Acute) Subjective: Patient seen oxygen saturation markedly improved currently saturating 100% on room air. Patient is medically stable for discharge Objective: GENERAL: cooperative HEENT: Atraumatic; moist oral mucosa EYES; Anicteric, Normal Conjunctiva NECK; supple, normal thyroid, no distended JVD. RESPIRATORY: Diminished to auscultation bilaterally, CARDIOVASCULAR: Regular S1 S2, no audible murmurs GI: soft, non-tender, normoactive bowel sounds, : No Renal angle tenderness; EXTREMITIES: No edema, no clubbing, no cyanosis. MUSCULOSKELETAL: No Joint Tenderness; no muscle waisting NEURO: Awake; no lateralizing signs. SKIN: No Rash PSYCH; Normal affect Vitals/I&O's: Vital Signs Temp Pulse Resp BP Pulse Ox 98.3 F 100 16 137/61 H 100 12/11/18 02:02 12/11/18 08:15 12/11/18 02:02 12/11/18 02:02 12/11/18 04:46 Oxygen Flow Rate (L/min) 0.5 Oxygen Delivery Method Room Air Weight: 71.668 kg Body Mass Index (BMI) 28.0 Intake and Output for Last 24 Hours 12/09/18 12/10/18 12/11/18 23:59 23:59 23:59 Intake Total 700 / 700 225 / 225 250 / 250 Output Total 225 / 225 100 / 100 Balance 700 / 700 0 / 0 150 / 150 Laboratory Results 12/10/18 07:57: POC Glucose 255 H 12/10/18 11:53: POC Glucose 169 H 12/10/18 16:20: POC Glucose 167 H 12/10/18 22:37: POC Glucose 137 H 12/11/18 01:45: POC Glucose 140 H Current Medications Acetaminophen (Tylenol) 650 mg PO Q6H PRN PRN PRN Reason: PAIN Hydrocodone Bitart/Acetaminophen ([place] 5mg-325mg) 1 - 2 tablet PO Q4H PRN PRN PRN Reason: PAIN Last Admin: 12/11/18 06:44 Dose: 2 tablet Amlodipine Besylate (Norvasc) 10 mg PO DAILY [facility] Last Admin: 12/11/18 08:12 Dose: 10 mg Aspirin (Ecotrin) 81 mg PO DAILYCM [facility] Last Admin: 12/11/18 08:11 Dose: 81 mg Atorvastatin Calcium (Lipitor) 40 mg PO QHS [facility] Last Admin: 12/10/18 22:40 Dose: 40 mg Clonidine (Catapres) 0.3 mg PO BID [facility] Last Admin: 12/11/18 08:12 Dose: 0.3 mg Dextrose (D50w Syringe) 0 gm IV X1 PRN; Protocol PRN Reason: Hypoglycemia Glucagon () 1 mg IM .X1 PRN PRN Reason: Hypoglycemia Heparin Sodium (Porcine) (Heparin Na) 5,000 unit SC Q8 [facility] Last Admin: 12/11/18 06:38 Dose: 5,000 unit Insulin Glargine (Lantus (Bkc)) 35 units SC QHS [facility] Last Admin: 12/10/18 22:39 Dose: 35 units Insulin Human Lispro (Humalog Kwikpen (Bkc)) 0 unit SQ ACHS [facility]; Protocol Last Admin: 12/11/18 08:11 Dose: 1 u Insulin Human Lispro (Humalog Kwikpen (Bkc)) 5 unit SC TIDAC [facility] Last Admin: 12/11/18 08:11 Dose: 5 u Levothyroxine Sodium (Synthroid) 112 mcg PO DAILY@0600 [facility] Last Admin: 12/11/18 06:38 Dose: 112 mcg Lisinopril (Zestril) 20 mg PO BID [facility] Last Admin: 12/11/18 08:12 Dose: 20 mg Metoprolol Tartrate (Lopressor (Beta Laurence)) 50 mg PO BID [facility] Last Admin: 12/11/18 08:15 Dose: 50 mg Ondansetron HCl (Zofran) 4 mg IV Q8H PRN PRN PRN Reason: NAUSEA Sodium Chloride () 5 - 15 ml IV UD PRN PRN Reason: SALINE FLUSH Tamsulosin HCl (Flomax) 0.4 mg PO 1000 [facility] Last Admin: 12/11/18 08:14 Dose: 0.4 mg Medical Necessity - Tobacco Use Smoking Status: Former smoker Assessment/Plan All Active Problems (Last Reviewed 12/10/18 @ 06:51 by Jose Guadalupe Cui MD) Acute respiratory failure with hypoxia (Acute) Problem with dialysis access (Acute) Hx of arteriovenostomy for renal dialysis (Acute) Problem with dialysis access (Acute) Hx of bilateral breast reduction surgery (Acute) History of partial hysterectomy (Acute) History of bowel resection (Acute) Hx of appendectomy (Acute) Hx of cholecystectomy (Acute) Hemorrhoids (Acute) Acid reflux (Acute) Constipation (Acute) Anxiety (Acute) Depression (Acute) Heart disease (Acute) Diabetes (Acute) Thyroid disease (Acute) Patient is a 53-year-old lady who past medical history significant for end-stage renal disease on hemodialysis underwent revision of her fistula on 12/10/2018 the hospitalist service was consulted for management of hypoxia 1. Postoperative hypoxia attributed to atelectasis did encourage the use of incentive spirometry. Patient was placed on oxygen titrated to keep pulse ox greater than 90 2. Status post revision of dialysis fistula by Dr. Hu on 12/09/2018 3. End-stage renal disease on hemodialysis on Wednesdays and Fridays 4. Diabetes mellitus type 2 did continue with home regimen 5. Hypothyroidism-patient is on levothyroxine home dose continued 6. Hypertension-blood pressure controlled, home medications continued with dose adjustment as needed 7. Dyslipidemia-patient is on statin therapy, continued at home dose 8. DVT prophylaxis SC heparin Code Visit Inpatient E&M: 63300 Subs Hosp L2
[2018-12-11 08:25] LABS: Bedside Glucose 166 mg/dL (70-110)
--- NOTE | 2018-12-11 09:14 | PCM.DC.SUM ---
Discharge Date and Diagnosis - Problem List Patient Problems: Active and Suspected Problems (Last Reviewed 12/10/18 @ 06:51 by Jose Guadalupe Cui MD) Acute respiratory failure with hypoxia (Acute) Problem with dialysis access (Acute) Date of Admission: 12/09/18 Date of Discharge: 12/11/18 - Primary Discharge Diagnosis Active and Suspected Problems (Last Reviewed 12/10/18 @ 06:51 by Jose Guadalupe Cui MD) Acute respiratory failure with hypoxia (Acute) Problem with dialysis access (Acute) - Secondary Discharge Diagnosis Chronic Problems (Last Reviewed 12/10/18 @ 06:51 by Jose Guadalupe Cui MD) Hypertension (Chronic) Hospital Course and Treatment Operations: - - Revision left upper extremity transposed basilic vein to brachial artery AV fistula with flow restricting graft. Vascu-Guard bovine patch, reference number the [id number], [id number] Summary of Care Provided: The patient is a 53 year old F who presented to the ED on 12/09 with numbness, decreased mobility, and cold left hand. Dr. Hu performed a revision left upper extremity transposed basilic vein to brachial artery AV fistula with flow restricting graft. Vascu-Guard bovine patch on 12/09/18. Patient tolerated the procedure well. Post-operatively, patient had decreased oxygen saturation and was subsequently admitted for observation. Patient continued to require oxygen via nasal canula. She had dialysis treatment on 12/10/18. Patient also had difficulty with urination. Upon discharge, patient was 100% on RA. She noted minimal amount of pain in the left upper extremity. Patient Problems: Active and Suspected Problems (Last Reviewed 12/10/18 @ 06:51 by Jose Guadalupe Cui MD) Acute respiratory failure with hypoxia (Acute) Problem with dialysis access (Acute) - Physical Exam General: Alert, Oriented x3, Cooperative Extremities: - - Left upper extremity AV fistula- YVES wrap intact. Patient able to wiggle her fingers. Vital Signs Temp Pulse Resp BP Pulse Ox 98.3 F 100 16 137/61 H 100 12/11/18 02:02 12/11/18 08:15 12/11/18 02:02 12/11/18 02:02 12/11/18 04:46 Oxygen Flow Rate (L/min) 0.5 Oxygen Delivery Method Room Air Weight: 158 lb Body Mass Index (BMI) 28.0 Intake and Output for Last 24 Hours 12/09/18 12/10/18 12/11/18 23:59 23:59 23:59 Intake Total 700 / 700 225 / 225 250 / 250 Output Total 225 / 225 100 / 100 Balance 700 / 700 0 / 0 150 / 150 POC Glucose 12/11/18 12/11/18 12/10/18 08:10 01:45 22:37 POC Glucose 166 H 140 H 137 H 12/10/18 12/10/18 12/10/18 16:20 11:53 07:57 POC Glucose 167 H 169 H 255 H Discharge Diet: Renal Diet Discharge Activity: May Not Shower Home Medications: Medications to take at Discharge amlodipine 10 mg tablet 10 mg PO DAILY 08/14/18 aspirin 81 mg tablet,delayed release 81 mg PO DAILY 08/14/18 atorvastatin 40 mg tablet 40 mg PO QHS 08/14/18 clonidine HCl 0.3 mg tablet 0.3 mg PO BID 08/14/18 insulin aspart U- 100 100 unit/mL subcutaneous pen 8 unit SC TID 08/14/18 levothyroxine 112 mcg capsule 112 mcg PO DAILY 08/14/18 lisinopril 20 mg tablet 20 mg PO BID tab 08/14/18 metoprolol tartrate 50 mg tablet 50 mg PO BID 08/14/18 vitamin B complex-vitamin C-folic acid 0.8 mg tablet 1 tab PO DAILY 08/14/18 Insulin Detemir [Levemir FlexPen] 50 units SUBCUT QHS 09/13/18 Hydrocodone Bitart/Apap 5-325 [[place] 5/325] 1 tablet PO Q6H PRN PRN 3 Days #9 tablet 12/11/18 Tamsulosin HCl [Flomax] 0.4 mg PO 1000 #7 capsule 12/11/18 Following Prescrptions Were Given to Patient: Hydrocodone Bitart/Apap 5-325 [[place] 5/325] 1 tablet PO Q6H PRN PRN 3 Days #9 tablet PRN Reason: Pain Tamsulosin HCl [Flomax] 0.4 mg PO 1000 #7 capsule Primary Care Physician: Maldonado Denny MD [Primary Care Provider] - Please Follow Up With: Ruben Hu MD - [phone] When: Call tomorrow with progress report please Disposition: Home Minutes spent on discharge:: 20 Patient Condition:: Stable Medical Necessity - Tobacco Use Smoking Status: Former smoker Meaningful Use Info Meaningful Use Diagnoses (Choose all that apply): None applicable Code Visit Inpatient E&M: 49069 Disch Hosp - No charge
--- NOTE | 2018-12-11 12:00 | CASEMGMT ---
RN ANDREW Face to Face with patient for initial transition planning/care coordination assessment. RN CM introduced self and role at [facility]. Patient lying in bed, alert and oriented. Patient willing to participate in assessment and is able to answer all questions appropriately. Care providers, pharmacy, and demographics verified. Patient wishes to discharge home, denies need for home health at this time. Patient states she has no further needs or concerns at this time. CM to follow for discharge planning needs that may arise. PCP: Eduin Specialists: [employer] And [employer] Consultant Preferred [facility]acy: [facility] Prescription Benefit: yes Living Will/HPOA: none LNOK: Living Arrangements: Patient lives with in 1 story home with no steps to enter the home. Patient independent with selfcare. Transportation: DME/HHC: Patient has shower chair and raised toilet at home. Patient attends dialysis at [facility] on MWF 5:30am Disposition Plan: Patient to discharge home with family support and follow-up plans in place.
[2018-12-11 12:16] LABS: Bedside Glucose 131 mg/dL (70-110)
[2018-12-11 14:15] VITALS: BP 115/47; PULSE 68; RESP 16; TEMP 36.6; O2SAT 94
== END 2018-12-11 16:08 | disposition home or self-care (01) | DRG 981 ==
LOC: ED 18:55 → SDC 19:15 → AC 19:16 → MS3 22:54
PROVIDERS: Admitting Provider Internal Medicine; Emergency Provider Emergency Medicine; Family Provider Internal Medicine; PCP Internal Medicine; Referring Provider Surgery; Visit Provider Internal Medicine
DX: J96.01 Acute respiratory failure with hypoxia (principal); N18.6 End stage renal disease; T82.898A Other specified complication of vascular prosthetic devices, implants and grafts, initial encounter; I12.0 Hypertensive chronic kidney disease with stage 5 chronic kidney disease or end stage renal disease; J98.11 Atelectasis; Z99.2 Dependence on renal dialysis; E03.9 Hypothyroidism, unspecified; Z87.891 Personal history of nicotine dependence; E11.22 Type 2 diabetes mellitus with diabetic chronic kidney disease; E78.5 Hyperlipidemia, unspecified; Z79.4 Long term (current) use of insulin
CPT/HCPCS: 71045; 80048; 82962; 85025; 90937; 94640; 94762; 99285; J0885; J1756; J7030; A4216; G0257; J2405; Q5106

== ENCOUNTER → 2018-12-17 13:56 | Outpatient (CLI) | payer MEDICARE, MEDICAID, SELFPAY ==
[2018-12-09 23:08] VITALS: BMI 28.0
--- NOTE | 2018-12-17 14:04 | AVDS_ITS ---
Reason For Study: Steal syndrome AVDS LEFT LT Radial artery Prox - 121.6 cm/s Mid - 127.0 cm/s Dist - 83.2 cm/s LT Ulnar artery Prox - 64.9 cm/s Mid - 64.9 cm/s Dist - 61.3 cm/s [place] artery - 203.2 cm/s Volume flow - 471.2 ml/min Prox anastomosis - 347.5 cm/s Prox graft - 591.0 cm/s Mid graft - 98.5 cm/s Volume flow - 501.8 ml/min Dist graft - 79.0 cm/s Volume flow - 492.8 ml/min Outflow - 197.7cm/s. Interpretation Summary Borderline low left upper extremity fistula volume flow with brachial artery flow of 471ml/min Mid fistula flow 501 ml/min Maintained left radial artery flow with slightly lower flow in the left ulnar artery. Ordering Physician: Ruben Hu Referring Physician: Ruben Hu Performed By: Ingrid Wild RVT
== END ==
PROVIDERS: Family Provider Internal Medicine; PCP Internal Medicine; Referring Provider Surgery; Visit Provider Surgery
DX: T82.898A Other specified complication of vascular prosthetic devices, implants and grafts, initial encounter (principal)
CPT/HCPCS: 93990

== ENCOUNTER → 2019-01-22 06:54 | Day surgery (SDC) | payer MEDICARE, MEDICAID, SELFPAY ==
--- NOTE | 2019-01-15 07:09 | HP_ITS ---
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 Is patient in pain?: No Allergies chlorhexidine Allergy (Mild, Verified 01/15/19 13:22) rash codeine Allergy (Unknown, Verified 01/15/19 13:22) Unknown latex Allergy (Unknown, Verified 01/15/19 13:22) Unknown Penicillins Allergy (Unknown, Verified 01/15/19 13:22) Unknown Medications amlodipine 10 mg tablet 10 mg PO DAILY 08/14/18 [History Confirmed 01/15/19] aspirin 81 mg tablet,delayed release 81 mg PO DAILY 08/14/18 [History Confirmed 01/15/19] atorvastatin 40 mg tablet 40 mg PO QHS 08/14/18 [History Confirmed 01/15/19] clonidine HCl 0.3 mg tablet 0.3 mg PO BID 08/14/18 [History Confirmed 01/15/19] insulin aspart (U-100) 100 unit/mL (3 mL) subcutaneous pen 8 unit SC TID 08/14/18 [History Confirmed 01/15/19] levothyroxine 112 mcg capsule 112 mcg PO DAILY 08/14/18 [History Confirmed 01/15/19] lisinopril 20 mg tablet 20 mg PO BID tab 08/14/18 [History Confirmed 01/15/19] metoprolol tartrate 50 mg tablet 50 mg PO BID 08/14/18 [History Confirmed 01/15/19] vitamin B complex-vitamin C-folic acid 0.8 mg tablet 1 tab PO DAILY 08/14/18 [History Confirmed 01/15/19] Insulin Detemir [Levemir FlexPen] 50 units SUBCUT QHS 09/13/18 [History Confirmed 01/15/19] Tamsulosin HCl [Flomax] 0.4 mg PO 1000 #7 cap 12/11/18 [Rx Confirmed 01/15/19] [facility] Medical History Problem with dialysis access (Acute) Hemorrhoids (Acute) Acid reflux (Acute) Constipation (Acute) Anxiety (Acute) Depression (Acute) Hypertension (Chronic) Heart disease (Acute) Diabetes (Acute) Thyroid disease (Acute) Surgical History Hx of arteriovenostomy for renal dialysis (Acute) Hx of bilateral breast reduction surgery (Acute) History of partial hysterectomy (Acute) History of bowel resection (Acute) Hx of appendectomy (Acute) Hx of cholecystectomy (Acute) Family History Brother Kidney disease Mother Cancer lung cancer Father Colon cancer Social History Smoking Status: Former smoker alcohol intake: never substance use type: does not use caffeine: Yes what type of physical activity do you participate in: none frequency: does not exercise HPI HPI HPI: GIULIANA BRAVO, is a 53 F who presents to the office today for HPI HPI Surgical H&P: Yes HPI: GIULIANA BRAVO, is a 53 F who presents to the office today for urgent surgical evaluation regarding her left upper extremity. Her pertinent surgical history is as follows: The patient is a 53 year old F with ESRD due to diabetes and hypertension on hemodialysis at 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 She was admitted on December 09 for arterial steal syndrome left arm following stage II procedure on December 06. She had increased pain with cool extremity, swelling, decreased sensation and dusky discoloration. She underwent revision of her AV fistula with a restricting cough placed. Swelling and pain and coolness is improved today. She has itchy sensation of her arm now which she did not have prior to admit. She continues to have a thrill and bruit over her AV fistula. Her last dialysis was on Monday at the outpatient clinic. She has been dialyzed with her tunneled dialysis catheter with the current catheter as her third one placed in May 2018. She had a failed left forearm AV fistula prior to her current AV fistula placed on 09/20/18 in the left upper arm. In the postoperative period I obtained the following duplex imaging exam A/V Fistula Ultrasound [facility] Cardiovascular [facility] [address] [place] [address] AV Fistula/Dialysis Graft Scan 12/17/18 1410 MR#: [id number]:[id number] Name: GIULIANA BRAVO [facility] #:[id number] : 1965 53From: Ruben Hu MD Attending Dr: Mayte VILLANUEVA,Melanie: BNONIE BAEZ Ordering Dr: Ruben Hu MDDate: 12/17/18 Location:CVSSex:FC Admitted: Reason For Study: Steal syndrome AVDS LEFT LT Radial artery Prox - 121.6 cm/s Mid - 127.0 cm/s Dist - 83.2 cm/s LT Ulnar artery Prox - 64.9 cm/s Mid - 64.9 cm/s Dist - 61.3 cm/s [place] artery - 203.2 cm/s Volume flow - 471.2 ml/min Prox anastomosis - 347.5 cm/s Prox graft - 591.0 cm/s Mid graft - 98.5 cm/s Volume flow - 501.8 ml/min Dist graft - 79.0 cm/s Volume flow - 492.8 ml/min Outflow - 197.7cm/s. Interpretation Summary Borderline low left upper extremity fistula volume flow with brachial artery flow of 471ml/min Mid fistula flow 501 ml/min Maintained left radial artery flow with slightly lower flow in the left ulnar artery. Ordering Physician: Ruben Hu Referring Physician: Ruben Hu Performed By: Ingrid Wild RVT 12/17/18 6082 Date Ruben Hu MD On today's visit however the patient is expressing concern that she has significant swelling of the left upper extremity and left hand. She feels that this is progressive and new. As noted above her previous problem was a AV fistula that was functioning at too high of her rate. She now is presenting with swelling suspicious for possible saphenous outflow obstruction ROS General General: Yes fatigue; no weight change, appetite, colon cancer, breast cancer or weakness HEENT HEENT: No difficulty swallowing, eye injury, eye surgery, swollen glands or hoarseness Endo Endocrine: Yes thyroid disease and diabetes mellitus; no thyroid cancer, Hair loss, heat intolerance or cold intolerance Cardio Cardiovascular: Yes high blood pressure; no murmur, pacemaker, heart disease, atrial fibrillation, heart attack, heart stent, palpitations, shortness of breat with exertion or chest pain Psych Psychiatric: Yes depression and anxiety; no hearing voices Resp Respiratory: No shortness of breath, No sleep apnea, No cough, No COPD, No asthma, No emphysema, No wheezing Gastro Gastrointestinal: No abdominal pain, No nausea or vomiting, No diarrhea, No constipation, No blood in stool, Yes acid reflux, Yes hemorrhoids, No ulcers, No gallbladder problem, No black,tarry stools Amadou Hematologic: No blood thinners, No blood disorders, No bleeding, No anemia, No blood clots Neuro Neurologic: No weakness Exam Const General: cooperative, no acute distress Nutritional Appearance: overweight Orientation: alert, awake HENDE Head: normal to inspection Chest Other: Right chest tunneled hemodialysis catheters Resp Effort & Inspection: normal respiratory effort Auscultation: clear to auscultation bilaterally Cardio Rate: regular rate Rhythm: regular rhythm Heart Sounds: no murmurs Neuro General: alert, awake Extrem Other: Swelling of the entire left upper extremity and swelling of the left hand. 2+ left radial pulse improved over previously Thrill and pulse and bruit is present. The bruit however suggest possible obstructive flow with diminished diastolic flow Assessment & Plan Problems 1. Problem with dialysis access, subsequent encounter T82.251B Plan I now have concerns that in deference to the previous problem where she had an arterial steal related to her transposed basilic vein to brachial artery AV fistula that required an emergency intervention with a bovine pericardium cuff placed at the proximal portion of the fistula. She now appears to have arm swelling and findings that would suggest venous outflow obstruction centrally. Her left hand is warmer. She has a palpable 2+ radial pulse. She has significant swelling however. The extensive discussion with the patient and her that we could pursue a left upper extremity fistulogram antegrade with flow closer to the antecubital space anticipating central venous obstruction. We could anticipate endovascularly treating that. She is on hemodialysis via dialysis catheters. However that this could worsen again her arterial steal phenomena that she had previously. She elects to proceed. If she continues to have problems then my option would be tertiary referral or ligation of the fistula but this would then commit her to chronic dialysis via her tunneled catheters. She is well aware that there is increased risk and difficulty with her current access procedures. CC: Dr. Lane Hu M.D., F.A.C.S. Coding Level of Care Code Off vis,est,level 3 Diagnoses Problem with dialysis access, subsequent encounter T82.898D ??Encounter type: subsequent encounter 01/15/191908 <Electronically signed by Ruben Hu MD> Date Ruben Hu MD I have re-examined the patient. There are no clinical changes since date of exam.
[2019-01-15 13:22] VITALS: BMI 31.0
[2019-01-21 13:33] VITALS: BMI 31.0
[2019-01-22 07:08] LABS: Hemoglobin 12.7 g/dl (12.0-15.0); Mean Corp Hgb Conc 32.6 g/gl (32-36); Mean Corpuscular Hgb 30.9 pg (27.0-32.0); Mean Corpuscular Volume 94.9 fL (81-99); Mean Platelet Vol. 8.7 fl (6.2-12.0); Platelet Count 182 K/mm3 (150-450); RBC Distribution Width CV 12.7 % (11.6-14.6); Red Blood Count 4.11 M/mm3 (4.2-5.4); White Blood Count 5.3 K/mm3 (4.4-11.0)
[2019-01-22 07:09] LABS: Scan Indicated on CBC? Y/N NO
[2019-01-22 07:22] LABS: Anion Gap 5 (5-15); BUN 35 mg/dL (7-18); BUN/Creat Ratio 7.1 RATIO (10-20); Calcium,Total 9.1 mg/dL (8.5-10.1); Chloride 104 mmol/L (98-107); Creatinine, Serum 4.94 mg/dL (0.55-1.02); EST Glomerular Filtration Rate 10 mL/min (>60); Est Glom Filt Rate - Afr Amer 12 mL/min (>60); Estimated Creatinine Clearance 9.24 ml/min; Glucose 81 mg/dL (74-106); Potassium 4.9 mmol/L (3.5-5.1); Sodium Level 141 mmol/L (136-145)
--- NOTE | 2019-01-22 09:16 | OP.PCM_ITS ---
Problem List (1) Problem with dialysis access Status: Acute Qualifiers: Report of Operation Date of Procedure: 01/22/19 Pre-Operative Diagnosis: Problem with left upper extremity transposed basilic vein to brachial artery AV fistula hemodialysis access with suspected central venous stenosis Post-Operative Diagnosis: High-grade left subclavian venous stenosis. Severely restricted left upper arm basilic vein inflow with flow restricting cuff Surgery/Procedure Performed:: Left upper extremity fistulogram with 10 x 4 [place] central venous angioplasty Description of Surgical Findings:: Timeout and informed consent was obtained. 54-year-old female was taken to special procedures lab placed on the table. 50 mcg of fentanyl and 1 mg of Versed were given as intravenous sedation. The left upper extremity was sterilely prepped and draped. This was performed with Betadine because of chlorhexidine allergy. Under ultrasound guidance closer to the antecubital space 2% lidocaine was instilled then a micropuncture needle was inserted under ultrasound guidance antegrade with flow. Micropuncture wire inserted. 6 [place] short sheath dilator was inserted. Then using Isovue contrast a fistulogram was obtained of the left upper arm. This demonstrated high-grade central venous stenosis of the left subclavian vein. Utilizing an 035 angled Glidewire I was able to advance past this area. I then placed a 10 x 4 [place] balloon and balloon angioplasty was performed up to 24 l[place]ett of pressure. While the balloon was inflated I performed a retrograde injection of the arterial inflow. Several different insufflation were performed at the area of stricturing. Completion view demonstrated what appeared to be complete resolution of the area of previous stenosis. She tolerated the procedure well balloons wires sheath removed and a U suture of 4-0 nylon was placed. There was still a 1-2+ palpable left radial pulse and there was resumption of a palpable thrill within the fistula. Blood loss minimal no apparent complications she was taken to the recovery area in satisfactory condition. Left upper extremity fistulogram demonstrates an area about 3 cm long of significant high-grade inflow stenosis. The anastomosis is widely patent. Then the vein dilates out to a quite normal sized fistula. There is evidence of high-grade central venous stenosis within the left subclavian vein and then appears to be adequate central venous return. There is evidence of an indwelling right internal jugular tunneled dialysis catheter. Subsequent to the venous angioplasty there is complete resolution of the area of subclavian stenosis on the left. Impression High-grade central venous stenosis involving the subclavian vein successfully treated with a 10 x 4 [place] balloon. Inflow restricting cuff significantly narrowing inflow. Ruben Hu M.D., F.A.C.S. Type of Anesthesia:: IV Sedation
== END ==
PROVIDERS: Family Provider Internal Medicine; PCP Internal Medicine; Referring Provider Surgery; Visit Provider Surgery
DX: T82.858A Stenosis of other vascular prosthetic devices, implants and grafts, initial encounter (principal); I87.1 Compression of vein; I13.11 Hypertensive heart and chronic kidney disease without heart failure, with stage 5 chronic kidney disease, or end stage renal disease; E11.22 Type 2 diabetes mellitus with diabetic chronic kidney disease; N18.6 End stage renal disease; Z99.2 Dependence on renal dialysis; Z79.82 Long term (current) use of aspirin; Z79.4 Long term (current) use of insulin; Z79.899 Other long term (current) drug therapy; Z87.891 Personal history of nicotine dependence
CPT/HCPCS: 36415; 36902; 76937; 80048; 85027; 99152; 99153; Q9967; C1725; C1769

== ENCOUNTER 2019-09-06 11:14 | Emergency (ER) | payer MEDICARE, MEDICAID, SELFPAY ==
[2019-04-24 15:51] VITALS: BMI 31.0
[2019-09-06 11:15] VITALS: BP 139/68; PULSE 90; RESP 18; TEMP 36.6; O2SAT 100; BMI 30.2
--- NOTE | 2019-09-06 11:41 | EKG12_ITS ---
Test Reason : DIZZINESS Blood Pressure : / mmHG Vent. Rate : 088 BPM Atrial Rate : 088 BPM P-R Int : 190 ms QRS Dur : 100 ms QT Int : 416 ms P-R-T Axes : 063 -48 115 degrees QTc Int : 503 ms Normal sinus rhythm Left anterior fascicular block Left ventricular hypertrophy with repolarization abnormality Prolonged QT Abnormal ECG Confirmed by MOY LOPEZ MD ([id number]), map editor LISA MAI ([id number]) on 09/09/2019 12:58:45 PM Referred By: LEN
--- NOTE | 2019-09-06 11:42 | ED.DCSUM_ITS ---
History of Present Illness Chief Complaint: Dizziness Informant: Patient Onset: Yesterday Current Severity: Mild Maximum Severity: Moderate Narrative: She presents with intermittent episodes of dizziness. She describes a spinning sensation. She had this at dialysis yesterday and it seemed to improve but recurred last evening. She continued to have symptoms today. She states she had problems with her blood pressure going high and low. She did have dialysis [id number] days this week because of the holiday which is not typical for her. She does describe having some palpitations and states her heart rate was in the 120s. She is also complaining of a generalized headache. She has already taken Tylenol. - Past Medical History (1) Acid reflux Status: Chronic (2) Anxiety Status: Chronic (3) Depression Status: Chronic (4) Diabetes Status: Chronic (5) Heart disease Status: Chronic (6) History of bowel resection Status: Chronic (7) History of partial hysterectomy Status: Chronic (8) Hx of appendectomy Status: Chronic (9) Hx of arteriovenostomy for renal dialysis Status: Chronic Comment: Left upper arm fistula creation- 09/20/18 (10) Hx of bilateral breast reduction surgery Status: Chronic (11) Hx of cholecystectomy Status: Chronic (12) Thyroid disease Status: Chronic (13) Hypertension Status: Chronic Past Medical History - Allergies and Home Meds Allergies/Adverse Reactions: Allergies chlorhexidine Allergy (Mild, Verified 09/06/19 11:17) rash codeine Allergy (Unknown, Verified 09/06/19 11:17) Unknown latex Allergy (Unknown, Verified 09/06/19 11:17) Unknown Penicillins Allergy (Unknown, Verified 09/06/19 11:17) Unknown Primary Care Physician: Maldonado Denny MD [Primary Care Provider] - Prior records reviewed: Yes Surgical History: - Lives: Spouse/ Significant Other Smoking Status: Former smoker Review of Systems General: Denies: Chills, Fever Eyes: Denies: Visual changes - bilaterally ENT: Denies: Bilateral ear pain Cardiovascular: Reports: Palpitations, Heart racing. Denies: Chest pain Respiratory: Denies: Dyspnea Gastrointestinal: Denies: Nausea, Vomiting Musculoskeletal: Denies: Extremity Pain Skin: Denies: Rash Neurological: Reports: Headache. Denies: Parasthesia Hematologic: Denies: Easy bruising Allergy: Denies: Uticaria Physical Exam Vital Signs/Narrative: Vital Signs Temp Pulse Resp BP Pulse Ox 09/06/19 11:15 97.9 F 90 18 139/68 H 100 Inital Vital Signs reviewed: Yes General: Well nourished, Well developed Head: Normocephalic ENT: Moist mucous membranes Neck: Supple Cardiovascular: Regular rate, Regular rhythm Respiratory: No distress, CTA bilaterally Abdomen: Soft, Nontender Extremities: Nontender Skin: Normal color Neurological: Alert, Oriented x3 Psychological: Normal affect Diagnostic/Tx/Re-eval Laboratory Results 09/06/19 09/06/19 09/06/19 12:05 12:05 12:42 WBC Cancelled Cancelled Corrected WBC Cancelled Cancelled RBC Cancelled Cancelled Hgb Cancelled Cancelled Hct Cancelled Cancelled MCV Cancelled Cancelled MCH Cancelled Cancelled MCHC Cancelled Cancelled RDW Std Deviation Cancelled Cancelled RDW Coeff of Alvina Cancelled Cancelled Plt Count Cancelled Cancelled MPV Cancelled Cancelled Immature Gran % (Auto) Cancelled Cancelled Neut % (Auto) Cancelled Cancelled Lymph % (Auto) Cancelled Cancelled [place] % (Auto) Cancelled Cancelled Eos % (Auto) Cancelled Cancelled Baso % (Auto) Cancelled Cancelled Absolute Neuts (auto) Cancelled Cancelled Absolute Lymphs (auto) Cancelled Cancelled Total Counted Cancelled Cancelled Neutrophils % (Manual) Cancelled Cancelled Band Neutrophils % Cancelled Cancelled Lymphocytes % (Manual) Cancelled Cancelled Monocytes % (Manual) Cancelled Cancelled Eosinophils % (Manual) Cancelled Cancelled Basophils % (Manual) Cancelled Cancelled Metamyelocytes % Cancelled Cancelled Myelocytes % Cancelled Cancelled Promyelocytes % Cancelled Cancelled Blast Cells % Cancelled Cancelled Plasma Cell % (Manual) Cancelled Cancelled Other Cells % Cancelled Cancelled Nucleated RBC % Cancelled Cancelled Nucleated RBCs/100 WBC Cancelled Cancelled Differential Comment Cancelled Cancelled Diff Path Review Cancelled Cancelled Hypersegmented Neuts Cancelled Cancelled Atypical Lymphocytes Cancelled Cancelled Reactive Lymphocytes Cancelled Cancelled Smudge Cells Cancelled Cancelled Toxic Granulation Cancelled Cancelled Toxic Vacuolation Cancelled Cancelled Dohle Bodies Cancelled Cancelled Erin Rods Cancelled Cancelled Platelet Estimate Cancelled Cancelled Plt Morphology Comment Cancelled Cancelled RBC Morphology Cancelled Cancelled Polychromasia Cancelled Cancelled Hypochromasia Cancelled Cancelled Poikilocytosis Cancelled Cancelled Basophilic Stippling Cancelled Cancelled Anisocytosis Cancelled Cancelled Microcytosis Cancelled Cancelled Macrocytosis Cancelled Cancelled Spherocytes Cancelled Cancelled Sickle Cells Cancelled Cancelled Target Cells Cancelled Cancelled Tear Drop Cells Cancelled Cancelled Ovalocytes Cancelled Cancelled Stomatocytes Cancelled Cancelled [place] Bodies Cancelled Cancelled Adan Cells Cancelled Cancelled Bite Cells Cancelled Cancelled Crenated Cell Cancelled Cancelled Acanthocytes (Spur) Cancelled Cancelled Rouleaux Cancelled Cancelled Schistocytes Cancelled Cancelled Sodium 138 Potassium 4.3 Chloride 100 Carbon Dioxide 29.0 Anion Gap 9 BUN 24 H Creatinine 4.89 H Estim Creat Clear Calc 10.75 Est GFR (MDRD) Af Amer 12 L Est GFR (MDRD) Non-Af 10 L BUN/Creatinine Ratio 4.9 L Glucose 228 H Calcium 9.4 Troponin I 0.039 09/06/19 09/06/19 13:21 14:20 WBC Cancelled 6.5 Corrected WBC Cancelled RBC Cancelled 3.89 L Hgb Cancelled 12.4 Hct Cancelled 38.2 MCV Cancelled 98.2 MCH Cancelled 31.9 MCHC Cancelled 32.5 RDW Std Deviation Cancelled 45.2 H RDW Coeff of Alvina Cancelled 12.5 Plt Count Cancelled 198 MPV Cancelled 8.7 Immature Gran % (Auto) Cancelled 0.200 Neut % (Auto) Cancelled 69.1 Lymph % (Auto) Cancelled 20.1 [place] % (Auto) Cancelled 9.4 Eos % (Auto) Cancelled 0.6 Baso % (Auto) Cancelled 0.6 Absolute Neuts (auto) Cancelled 4.5 Absolute Lymphs (auto) Cancelled 1.31 Total Counted Cancelled Neutrophils % (Manual) Cancelled Band Neutrophils % Cancelled Lymphocytes % (Manual) Cancelled Monocytes % (Manual) Cancelled Eosinophils % (Manual) Cancelled Basophils % (Manual) Cancelled Metamyelocytes % Cancelled Myelocytes % Cancelled Promyelocytes % Cancelled Blast Cells % Cancelled Plasma Cell % (Manual) Cancelled Other Cells % Cancelled Nucleated RBC % Cancelled 0 Nucleated RBCs/100 WBC Cancelled Differential Comment Cancelled Diff Path Review Cancelled Hypersegmented Neuts Cancelled Atypical Lymphocytes Cancelled Reactive Lymphocytes Cancelled Smudge Cells Cancelled Toxic Granulation Cancelled Toxic Vacuolation Cancelled Dohle Bodies Cancelled Erin Rods Cancelled Platelet Estimate Cancelled Plt Morphology Comment Cancelled RBC Morphology Cancelled Polychromasia Cancelled Hypochromasia Cancelled Poikilocytosis Cancelled Basophilic Stippling Cancelled Anisocytosis Cancelled Microcytosis Cancelled Macrocytosis Cancelled Spherocytes Cancelled Sickle Cells Cancelled Target Cells Cancelled Tear Drop Cells Cancelled Ovalocytes Cancelled Stomatocytes Cancelled Peterson-[place] Bodies Cancelled Adan Cells Cancelled Bite Cells Cancelled Crenated Cell Cancelled Acanthocytes (Spur) Cancelled Rouleaux Cancelled Schistocytes Cancelled Sodium Potassium Chloride Carbon Dioxide Anion Gap BUN Creatinine Estim Creat Clear Calc Est GFR (MDRD) Af Amer Est GFR (MDRD) Non-Af BUN/Creatinine Ratio Glucose Calcium Troponin I - EKG Initial EKG Interpretation: Sinus Rhythm - Sinus at 88. T inversions in the high lateral leads. This is similar to prior study from September 2018. - Medical Decision Making Patient was given morphine and Phenergan. She did not receive IV fluids secondary to her dialysis status. Vital signs been stable throughout her stay. Blood work is unremarkable. On repeat evaluation patient states her headache is significantly improved. She will be discharged home with her . ED Disposition - Plan for ED Patient: Disposition: Home or Assisted Living Diagnosis: Cephalgia Instructions: DIZZINESS, Unk Cause, HEADACHE, Unspecified Referrals: Maldonado Denny MD [Primary Care Provider] -
[2019-09-06 12:39] LABS: Anion Gap 9 (5-15); BUN 24 mg/dL (7-18); BUN/Creat Ratio 4.9 RATIO (10-20); Calcium,Total 9.4 mg/dL (8.5-10.1); Chloride 100 mmol/L (98-107); Creatinine, Serum 4.89 mg/dL (0.55-1.02); EST Glomerular Filtration Rate 10 mL/min (>60); Est Glom Filt Rate - Afr Amer 12 mL/min (>60); Estimated Creatinine Clearance 10.75 ml/min; Glucose 228 mg/dL (74-106); Potassium 4.3 mmol/L (3.5-5.1); Sodium Level 138 mmol/L (136-145)
[2019-09-06] MEDS: proMETHazine 25 MG/ML Syringe 6.25 MG IV (12:47)
[2019-09-06] MEDS: Morphine 4 MG/ML Syringe IV (12:47)
--- NOTE | 2019-09-06 12:56 | NURSING ---
[facility] TOO SHORT. LAB AWARE THEY WILL HAVE TO REDRAW
[2019-09-06 13:04] VITALS: BP 165/73; PULSE 93; RESP 15; O2SAT 97
[2019-09-06 14:27] LABS: Absolute Lymphocyte Count 1.31 X10^3/uL (0.83-4.51); Absolute Neutrophil Count 4.5 X10^3/uL (2.0-7.7); Basophil# 0.04 X10^3/uL; Basophil% 0.6 % (0-1); Eosinophil# 0.04 X10^3/uL; Eosinophils% 0.6 % (0-5); Hematocrit 38.2 % (37-47); Hemoglobin 12.4 g/dL (12.0-15.0); Lymphocyte # 1.31 X10^3/ul (4.0); Lymphocyte % 20.1 % (19-41); Mean Corp Hgb Conc 32.5 g/dL (32-36); Mean Corpuscular Hgb 31.9 pg (27.0-32.0); Mean Corpuscular Volume 98.2 fL (81-99); Mean Platelet Vol. 8.7 fl (6.2-12.0); Monocyte# 0.61 X10^3/uL; Monocyte% 9.4 % (0-10); NRBC Flagged by Analyzer 0 % (0-5); Neutrophil % 69.1 % (47-70); Platelet Count 198 K/mm3 (150-450); RBC Distribution Width CV 12.5 % (11.6-14.6); RBC Distribution Width SD 45.2 fl (35.1-43.9); Red Blood Count 3.89 M/mm3 (4.2-5.4); White Blood Count 6.5 K/mm3 (4.4-11.0)
[2019-09-06 14:32] VITALS: BP 137/79; PULSE 95; RESP 16; O2SAT 99
[2019-09-06 15:26] VITALS: BP 141/72; PULSE 76; RESP 15; O2SAT 98
== END 2019-09-06 15:27 | disposition home or self-care (01) ==
PROVIDERS: Emergency Provider Emergency Medicine; Family Provider Internal Medicine; PCP Internal Medicine
DX: R51 Headache (principal); R42 Dizziness and giddiness; I11.9 Hypertensive heart disease without heart failure; E11.9 Type 2 diabetes mellitus without complications; E07.9 Disorder of thyroid, unspecified; Z99.2 Dependence on renal dialysis; Z79.82 Long term (current) use of aspirin; Z79.4 Long term (current) use of insulin; Z87.891 Personal history of nicotine dependence
CPT/HCPCS: 80048; 84484; 85025; 93005; 96374; 96375; 99285; A4216; J2405

== ENCOUNTER 2021-01-11 02:34 | Observation (INO) | payer MEDICARE, MEDICAID, SELFPAY ==
[2021-01-11] VITALS (15 sets, daily range): BP systolic 104–225; BP diastolic 34–131; PULSE 82–120; RESP 8–20; TEMP 36.5–37; O2SAT 97–100; BMI 30.1
--- NOTE | 2021-01-11 03:03 | EKG12_ITS ---
Test Reason : DIZZINESS Blood Pressure : / mmHG Vent. Rate : 098 BPM Atrial Rate : 098 BPM P-R Int : 180 ms QRS Dur : 104 ms QT Int : 394 ms P-R-T Axes : 066 -42 105 degrees QTc Int : 503 ms Normal sinus rhythm Left axis deviation Left ventricular hypertrophy with repolarization abnormality Prolonged QT Abnormal ECG Confirmed by KATIUSKA VILLANUEVA, ANDER ([id number]), managing editor LISA MAI ([id number]) on 01/13/2021 8:18:23 AM Referred By: LUIS F Confirmed By:ANDER HARP MD
--- NOTE | 2021-01-11 03:16 | EDS_ITS ---
HPI History of Present Illness Chief Complaint: Dizziness Informant: patient Onset/Context/Timing Onset: Days (3) Context: Gradual Onset Timing: Continuous Quality: Lightheaded Location: Generalized Worsened by: Standing Relieved by: Nothing Associated Symptoms Associated Symptoms: Occasional tinnitus Narrative Narrative: Patient presents with dizziness and low blood pressure for the past 3 days. Patient states it is gradually gotten worse. Patient states she feels lightheaded. Patient states this is worse with standing. Patient admits to occasional tinnitus. Patient states she takes dialysis on Monday, Monday, and Monday. Patient denies any other hearing changes. Patient denies any headaches. Patient does admit to some rhinorrhea. [facility] Medical History (Updated 01/11/21 @ 06:[address] Christo Garcia, DO) Acid reflux Anxiety Constipation Depression Diabetes Heart disease Hemorrhoids Hypertension Problem with dialysis access Thyroid disease Home Medications amlodipine 10 mg tablet 10 mg PO DAILY 08/14/18 [History Last Taken 12/06/18 04:00 10 MG] aspirin 81 mg tablet,delayed release 81 mg PO DAILY 08/14/18 [History Last Taken Unknown] atorvastatin 40 mg tablet 40 mg PO QHS 08/14/18 [History Last Taken Unknown] clonidine HCl 0.3 mg tablet 0.3 mg PO BID 08/14/18 [History Last Taken 01/22/19] insulin aspart U-100 100 unit/mL (3 mL) subcutaneous pen 10 unit SC TIDCM 08/14/18 [History Last Taken Unknown] levothyroxine 112 mcg capsule 112 mcg PO DAILY 08/14/18 [History Last Taken 01/22/19] lisinopril 20 mg tablet 20 mg PO BID tab 08/14/18 [History Last Taken 09/20/18 05:30] insulin detemir U-100 54 units SC QHS 09/13/18 [History Last Taken Unknown] B complex-vitamin C-folic acid [Bethanie-Petey] 1 tab PO DAILY 01/11/21 [History Last Taken Unknown] ferric citrate [Auryxia] 210 mg PO TIDCM 01/11/21 [History Last Taken Unknown] Allergy/AdvReac Type Severity Reaction Status Date / Time chlorhexidine Allergy Mild rash Verified 01/11/21 02:40 codeine Allergy Unknown Unknown Verified 01/11/21 02:40 latex Allergy Unknown Unknown Verified 01/11/21 02:40 Penicillins Allergy Unknown Unknown Verified 01/11/21 02:40 Family History Brother Kidney disease Mother Cancer lung cancer Father Colon cancer Surgical History History of bowel resection History of partial hysterectomy Hx of appendectomy Hx of arteriovenostomy for renal dialysis Hx of bilateral breast reduction surgery Hx of cholecystectomy Social History Smoking Status: Former smoker alcohol intake: never substance use type: does not use caffeine: Yes what type of physical activity do you participate in: none frequency: does not exercise ROS ROS ED Constitutional Constitutional ED: Reports chills and subjective; Denies fever(s) Eyes Eyes: Denies blurry vision or change in vision ENT ENT ED: Reports rhinorrhea; Denies sore throat Cardiovascular Cardiovascular: Denies chest pain or palpitations Respiratory/Chest Respiratory/Chest: Reports dyspnea; Denies cough Gastrointestinal Gastrointestinal: Reports diarrhea; Denies nausea or vomiting Genitourinary Genitourinary ED: Denies dysuria or hematuria Musculoskeletal Musculoskeletal: Denies back pain or neck pain Integumentary Denies abscess or rash Neurologic Neurologic: Denies headache(s) or weakness Allergic/Immunologic Allergic/Immunologic ED: Denies mouth swelling or urticaria EXAM Physical Exam Const Vital Signs: 01/11/21 02:35 01/11/21 02:40 01/11/21 03:00 Temperature 98.6 F Temperature Source Temporal Pulse Rate 110 H Pulse Rate [Lying] 117 H Pulse Rate [Sitting] 115 H Pulse Rate [Standing] 104 H Respiratory Rate 8 L Respiratory Pattern Normal Blood Pressure 194/86 H Blood Pressure [Lying] 177/53 H Blood Pressure [Sitting] 194/86 H Blood Pressure [Standing] 225/131 H Blood Pressure Mean 122 Blood Pressure Mean [Lying] 94 Blood Pressure Mean [Sitting] 122 Blood Pressure Mean [Standing] 162 Pulse Ox 100 Oxygen Delivery Method Room Air 01/11/21 04:12 01/11/21 05:36 01/11/21 06:24 Temperature 98.2 F 97.9 F Temperature Source Temporal Temporal Pulse Rate 101 H 100 105 H Pulse Rate [Lying] Pulse Rate [Sitting] Pulse Rate [Standing] Respiratory Rate 20 H 16 17 Respiratory Pattern Blood Pressure 143/43 H 152/62 H 145/64 H Blood Pressure [Lying] Blood Pressure [Sitting] Blood Pressure [Standing] Blood Pressure Mean 76 92 91 Blood Pressure Mean [Lying] Blood Pressure Mean [Sitting] Blood Pressure Mean [Standing] Pulse Ox 100 98 100 Oxygen Delivery Method Room Air Room Air Room Air Positive well nourished and well developed General Appearance ED: well developed Eyes PERRL and EOMs intact bilaterally Eyes Narrative: There is some mild nystagmus with lateral gaze. This did also reproduce the patient's dizziness. Neck supple and no JVD Resp normal respiratory effort and clear to auscultation bilaterally Cardio regular rate and regular rhythm GI normal to inspection, nondistended, normoactive bowel sounds and non-tender Palpation: soft Neuro oriented x3, CN's II-XII intact bilaterally and no sensory deficits noted Sensorium / Orientation: alert Motor Exam: strength 5/5 throughout Psych mental status grossly normal MDM MDM MDM Narrative Medical decision making narrative: CT scan of the brain was obtained. There is no acute intracranial abnormality. Portable 1 view chest x-ray was obtained. On my interpretation, lung reyes are clear. There is normal cardiac silhouette. Bony thorax is normal. There is no acute process noted. Radiologist also interpreted the x-ray and agrees. CBC showed a mild anemia with a hemoglobin 11.2. Hematocrit 33.5. Comprehensive metabolic profile showed an elevated creatinine of 9.64 which was increased from previous result from 09/06/2019. Lactate was normal. Potassium was only slightly elevated at 5.5. Urinalysis does not show any evidence of urinary tract infection. Patient was given a dose of Valium initially. Patient had minimal relief with this. I attempted to ambulate patient. She can only ambulate approximately 10 steps. Patient was given a dose of meclizine. Case was discussed with the hospitalist. He will admit the patient to his service. Patient understood and was agreeable with the plan. All questions were answered. Lab Data Attestation: I reviewed the patient's lab results. Labs: Laboratory Results - last 24 hr 01/11/21 01/11/21 01/11/21 03:40 03:40 03:40 WBC 8.3 RBC 3.37 L Hgb 11.3 L Hct 33.5 L MCV 99.4 H MCH 33.5 H MCHC 33.7 RDW Std Deviation 44.0 H RDW Coeff of Alvina 12.0 Plt Count 229 MPV 9.1 Immature Gran % (Auto) 0.400 Neut % (Auto) 78.7 H Lymph % (Auto) 12.8 L [place] % (Auto) 5.9 Eos % (Auto) 1.2 Baso % (Auto) 1.0 Absolute Neuts (auto) 6.6 Absolute Lymphs (auto) 1.06 Nucleated RBC % 0 Sodium Cancelled Potassium Cancelled Chloride Cancelled Carbon Dioxide Cancelled Anion Gap Cancelled BUN Cancelled Creatinine Cancelled Estim Creat Clear Calc Cancelled Est GFR (MDRD) Af Amer Cancelled Est GFR (MDRD) Non-Af Cancelled BUN/Creatinine Ratio Cancelled Glucose Cancelled Lactic Acid 1.5 Calcium Cancelled Total Bilirubin Cancelled AST Cancelled ALT Cancelled Alkaline Phosphatase Cancelled Total Protein Cancelled Albumin Cancelled Globulin Cancelled Albumin/Globulin Ratio Cancelled Urine Color Urine Clarity Urine pH Ur Specific [place] Urine Protein Urine Glucose (UA) Urine Ketones Urine Occult Blood Urine Nitrite Urine Bilirubin Urine Urobilinogen Ur Leukocyte Esterase Urine RBC Urine WBC Ur Squamous Epith Cells Ur Transition Epith Cell Urine Bacteria Urine Mucus 01/11/21 01/11/21 03:45 04:46 WBC RBC Hgb Hct MCV MCH MCHC RDW Std Deviation RDW Coeff of Alvina Plt Count MPV Immature Gran % (Auto) Neut % (Auto) Lymph % (Auto) [place] % (Auto) Eos % (Auto) Baso % (Auto) Absolute Neuts (auto) Absolute Lymphs (auto) Nucleated RBC % Sodium 133 L Potassium 5.5 H Chloride 97 L Carbon Dioxide 29.0 Anion Gap 7 BUN 58 H Creatinine 9.64 H* Estim Creat Clear Calc 5.39 Est GFR (MDRD) Af Amer 5 L Est GFR (MDRD) Non-Af 4 L BUN/Creatinine Ratio 6.0 L Glucose 278 H Lactic Acid Calcium 9.5 Total Bilirubin 0.40 AST 22 ALT 35 Alkaline Phosphatase 288 H Total Protein 7.2 Albumin 3.7 Globulin 3.5 Albumin/Globulin Ratio 1.1 Urine Color Yellow Urine Clarity Sl. Cloudy Urine pH 6.0 Ur Specific [place] 1.010 Urine Protein 100 H Urine Glucose (UA) 100 H Urine Ketones Negative Urine Occult Blood 50 H Urine Nitrite Negative Urine Bilirubin 3 H Urine Urobilinogen Normal Ur Leukocyte Esterase 100 H Urine RBC 0-5 SEEN Urine WBC 5-10 SEEN Ur Squamous Epith Cells 5-10 SEEN Ur Transition Epith Cell 0-5 SEEN Urine Bacteria RARE Urine Mucus RARE Radiography Chest X-Ray - ED: 1 View, Read by ED Physician, Read by Radiologist and Normal Diagnostic Testing: Radiology Impression Brain CT 01/11/21 03:42 IMPRESSION: No demonstrated acute intracranial process. Electronically Signed: Maximo Velazquez MD at 5:08 EDT , Service support , Chest X-Ray 01/11/21 04:00 IMPRESSION: No evidence for acute cardiopulmonary pathology. Inferiorly inserted central venous catheter with tip in the right atrium. Electronically Signed: Maximo Velazquez MD at 5:03 EDT , Service support , EKG Initial EKG: Attestation: I personally reviewed and interpreted this EKG as follows: Interpretation: Sinus Rhythm (98) Comments: Left ventricular hypertrophy with strain Prior: Unchanged (09/06/2019) Discharge Plan Triage Chief Complaint: Dizziness ED Provider: Christo Garcia Dx/Rx/DC Orders Clinical Impression: Dizziness of unknown etiology Prescriptions: No Action Novolog Flexpen U-100 Insulin 100 unit/mL insulin pen 10 unit SC TIDCM RF: 0 aspirin [Adult Low Dose Aspirin] 81 mg tablet,delayed release (DR/EC) 81 mg PO DAILY RF: 0 clonidine HCl 0.3 mg tablet 0.3 mg tablet 0.3 mg PO BID RF: 0 lisinopril 20 mg tablet 20 mg PO BID RF: 0 levothyroxine 112 mcg capsule 112 mcg capsule 112 mcg PO DAILY RF: 0 atorvastatin 40 mg tablet 40 mg PO QHS RF: 0 amlodipine 10 mg tablet 10 mg PO DAILY RF: 0 insulin detemir U-100 100 UNITS/ML insulin pen 54 units SC QHS RF: 0 Bethanie-Petey 0.8 mg Tablet 1 tab PO DAILY RF: 0 Auryxia 210 mg iron Tablet 210 mg PO TIDCM RF: 0 Primary Care Provider: Maldonado Denny Referrals: Maldonado Denny MD [Primary Care Provider] - Disposition Disposition: Acute Care Hospital [facility]
[2021-01-11] MEDS: diazePAM 5 MG Tablet 2.5 MG PO (03:25)
--- NOTE | 2021-01-11 03:42 | CT_ITS ---
STUDY: CT BRAIN WITHOUT CONTRAST REASON FOR EXAM: Female, 55 years old. Headache RADIATION DOSAGE (If Supplied By Facility): CTDIvol = ( 44.99 ) mGy, DLP = ( 829.85 ) mGycm TECHNIQUE: Transaxial CT imaging of the brain was performed without administration of intravenous contrast material. Individualized dose optimization techniques were used for this CT. COMPARISON: MRI brain 04/06/2018. FINDINGS: Normal soft tissue structures. Normal calvarium. Normal size ventricles and extra-axial spaces for the patient''s age. Normal white matter tracts of the cerebral hemispheres. Normal basal ganglia and thalami. Normal brainstem. Normal cerebellum. There is atherosclerotic calcification of the vertebral and cavernous carotid arteries. There is no intracranial hemorrhage. There are no findings of an acute ischemic infarction. Normal visualized paranasal sinuses. CT/Brain/Head without Contrast IMPRESSION: No demonstrated acute intracranial process. Electronically Signed: Maximo Velazquez MD at 5:08 EDT , Service support ,
[2021-01-11 03:45] LABS: Absolute Lymphocyte Count 1.06 X10^3/uL (0.83-4.51); Absolute Neutrophil Count 6.6 X10^3/uL (2.0-7.7); Basophil# 0.08 X10^3/uL; Eosinophils% 1.2 % (0-5); Hematocrit 33.5 % (37-47); Hemoglobin 11.3 g/dL (12.0-15.0); Lymphocyte # 1.06 X10^3/ul (0.83-4.51); Lymphocyte % 12.8 % (19-41); Mean Corp Hgb Conc 33.7 g/dL (32-36); Mean Corpuscular Hgb 33.5 pg (27.0-32.0); Mean Corpuscular Volume 99.4 fL (81-99); Mean Platelet Vol. 9.1 fl (6.2-12.0); Monocyte# 0.49 X10^3/uL; Monocyte% 5.9 % (0-10); NRBC Flagged by Analyzer 0 % (0-5); Neutrophil # 6.55 X10^3/uL (2.7-7.7); Neutrophil % 78.7 % (47-70); Platelet Count 229 K/mm3 (150-450); Red Blood Count 3.37 M/mm3 (4.2-5.4); White Blood Count 8.3 K/mm3 (4.4-11.0)
[2021-01-11 03:59] LABS: Color, Urine Yellow (Yellow); Glucose, Dipstick 100 mg/dl (Normal); Ketone-Dipstick Negative (Negative); Leukocyte Esterase-Dipstick 100 /ul (Negative); Nitrite-Dipstick Negative (Negative); Occult Blood-Urine 50 /ul (Negative); Protein-Dipstick 100 mg/dl (Negative); Urine Clarity Sl. Cloudy (Clear); Urine Urobilinogen Normal (Normal)
[2021-01-11 04:00] LABS: Urine Bilirubin Dipstick 3 mg/dL (Negative)
--- NOTE | 2021-01-11 04:00 | RAD_ITS ---
STUDY: X-RAY CHEST REASON FOR EXAM: Female, 55 years old. Shortness of breath TECHNIQUE: Single AP portable view of the chest. COMPARISON: 12/09/2018. FINDINGS: There is an inferiorly inserted double-lumen central venous catheter with the catheter tip in the right atrium. There is relative elevation of the right hemidiaphragm, which is chronic. There are no confluent pulmonary infiltrates. There is no demonstrated pleural abnormality. Normal size heart. Normal mediastinum and rossana. Normal visualized aortic arch and descending thoracic aorta. There are no demonstrated acute fractures or destructive bone lesions. There is no demonstrated abnormality of the visualized soft tissue structures of the upper abdomen. RAD/Chest 1 View (Portable) IMPRESSION: No evidence for acute cardiopulmonary pathology. Inferiorly inserted central venous catheter with tip in the right atrium. Electronically Signed: Maximo Velazquez MD at 5:03 EDT , Service support ,
[2021-01-11 04:05] LABS: Bacteria RARE /hpf (None Seen); Mucous, Urine RARE /hpf (<or=2+); Red Blood Cells-Urine 0-5 SEEN /hpf (0-5); Squamous Epithelial Cells - UA 5-10 SEEN /hpf (5-10); Transitional Epithelial - Ur 0-5 SEEN /hpf (0-5); White Blood Cells 5-10 SEEN /hpf (0-5)
[2021-01-11 04:07] LABS: Lactic Acid 1.5 mmol/L (0.4-1.9)
[2021-01-11 05:21] LABS: ALB/GLOB Ratio 1.1 RATIO (0.9-2.4); AST(SGOT) 22 U/L (15-37); Alanine Aminotransfer ALT/SGPT 35 U/L (13-56); Albumin, Serum 3.7 g/dL (3.2-5.0); Alkaline Phosphatase 288 U/L (45-117); Anion Gap 7 (5-15); BUN 58 mg/dL (7-18); Calcium,Total 9.5 mg/dL (8.5-10.1); Chloride 97 mmol/L (98-107); Creatinine, Serum 9.64 mg/dL (0.55-1.02); EST Glomerular Filtration Rate 4 mL/min (>60); Est Glom Filt Rate - Afr Amer 5 mL/min (>60); Estimated Creatinine Clearance 5.39 ml/min; Globulin 3.5 g/dL (2.2-4.2); Glucose 278 mg/dL (74-106); Potassium 5.5 mmol/L (3.5-5.1); Protein, Total 7.2 g/dL (6.4-8.2); Sodium Level 133 mmol/L (136-145)
--- NOTE | 2021-01-11 05:34 | ED.RN ---
Patient able to ambulate to the door and states she feels a spinning and nausea with the position change. States she does not think it is worse if she turns her head to one side to the other. Patient walked back to the bed and sat down, laid down, tilted head back. head to the right and then left, turning body and reports that made the sx worse. See VS after walk, stable for her and SPO2 stayed at 100% but patient not able to tolerate walking more than 10 feet.
[2021-01-11] MEDS: Meclizine HCl 25 MG Tablet PO ×3 (06:16→22:24)
--- NOTE | 2021-01-11 06:30 | PCM.HP.STD ---
HPI - General General Date of Admission: 01/11/21 Chief Complaint: Vertigo HPI Narrative GIULIANA BRAVO, is a 55 F with a significant history of end-stage renal disease on dialysis who presents with vertigo that started 3 days ago after her last dialysis session. The vertigo has progressively worsened. The vertigo worsens when she stands up and move. Also it worsens when she change position. At the emergency department initially patient was given Valium. Later on an attempt was made for her to walk. However patient could not move for about 10 steps without getting vertigo. Meclizine was given. Patient thinks that her vertigo is related with hypotension. She reported her blood pressure at home has been low. She reported a systolic blood pressure of around 95. She denies any nausea or vomiting. She does denies any recent URI. [facility] Medical History (Updated 01/11/21 @ 07:05 by Giuliana Garcia) Acid reflux Anxiety Congestive heart failure (CHF) Constipation Depression Diabetes Dialysis patient Former smoker Heart disease Hemorrhoids Hypertension Hypothyroidism Kidney disease Problem with dialysis access Thyroid disease TIA (transient ischemic attack) Wears hearing aid in both ears Home Medications amlodipine 10 mg tablet 10 mg PO DAILY 08/14/18 [History Last Taken 12/06/18 04:00 10 MG] aspirin 81 mg tablet,delayed release 81 mg PO DAILY 08/14/18 [History Last Taken Unknown] atorvastatin 40 mg tablet 40 mg PO QHS 08/14/18 [History Last Taken Unknown] clonidine HCl 0.3 mg tablet 0.3 mg PO BID 08/14/18 [History Last Taken 01/22/19] insulin aspart U-100 100 unit/mL (3 mL) subcutaneous pen 10 unit SC TIDCM 08/14/18 [History Last Taken Unknown] levothyroxine 112 mcg capsule 112 mcg PO DAILY 08/14/18 [History Last Taken 01/22/19] lisinopril 20 mg tablet 20 mg PO BID tab 08/14/18 [History Last Taken 09/20/18 05:30] insulin detemir U-100 54 units SC QHS 09/13/18 [History Last Taken Unknown] B complex-vitamin C-folic acid [Bethanie-Petey] 1 tab PO DAILY 01/11/21 [History Last Taken Unknown] ferric citrate [Auryxia] 210 mg PO TIDCM 01/11/21 [History Last Taken Unknown] Allergy/AdvReac Type Severity Reaction Status Date / Time chlorhexidine Allergy Mild rash Verified 01/11/21 02:40 codeine Allergy Unknown Unknown Verified 01/11/21 02:40 latex Allergy Unknown Unknown Verified 01/11/21 02:40 Penicillins Allergy Unknown Unknown Verified 01/11/21 02:40 Family History Brother Kidney disease Mother Cancer lung cancer Father Colon cancer Surgical History History of bowel resection History of partial hysterectomy Hx of appendectomy Hx of arteriovenostomy for renal dialysis Hx of bilateral breast reduction surgery Hx of cholecystectomy Social History Smoking Status: Former smoker alcohol intake: never substance use type: does not use caffeine: Yes what type of physical activity do you participate in: none frequency: does not exercise ROS ROS Narrative 12 point review of system is negative except as stated in HPI. Vital Signs Vital Signs Vital Signs: 01/11/21 02:35 01/11/21 02:40 01/11/21 03:00 Temperature 98.6 F Temperature Source Temporal Pulse Rate 110 H Pulse Rate [Lying] 117 H Pulse Rate [Sitting] 115 H Pulse Rate [Standing] 104 H Respiratory Rate 8 L Respiratory Pattern Normal Blood Pressure 194/86 H Blood Pressure [Lying] 177/53 H Blood Pressure [Sitting] 194/86 H Blood Pressure [Standing] 225/131 H Blood Pressure Mean 122 Blood Pressure Mean [Lying] 94 Blood Pressure Mean [Sitting] 122 Blood Pressure Mean [Standing] 162 Pulse Ox 100 Oxygen Delivery Method Room Air 01/11/21 04:12 01/11/21 05:36 01/11/21 06:24 Temperature 98.2 F 97.9 F Temperature Source Temporal Temporal Pulse Rate 101 H 100 105 H Pulse Rate [Lying] Pulse Rate [Sitting] Pulse Rate [Standing] Respiratory Rate 20 H 16 17 Respiratory Pattern Blood Pressure 143/43 H 152/62 H 145/64 H Blood Pressure [Lying] Blood Pressure [Sitting] Blood Pressure [Standing] Blood Pressure Mean 76 92 91 Blood Pressure Mean [Lying] Blood Pressure Mean [Sitting] Blood Pressure Mean [Standing] Pulse Ox 100 98 100 Oxygen Delivery Method Room Air Room Air Room Air Physical Exam Narrative Alert and oriented x3 Nontraumatic; normocephalic. Effusion of the left ear. Lung clear to auscultate Heart sounds S1-S2. No murmur, gallop or rubs. Abdomen bowel sounds present soft, nontender nondistended Extremity without edema cyanosis or clubbing. Lab / Micro Data Result Diagrams: 01/11/21 03:40 01/11/21 04:46 Labs: Laboratory Results - last 24 hr 01/11/21 01/11/21 01/11/21 03:40 03:40 03:40 WBC 8.3 RBC 3.37 L Hgb 11.3 L Hct 33.5 L MCV 99.4 H MCH 33.5 H MCHC 33.7 RDW Std Deviation 44.0 H RDW Coeff of Alvina 12.0 Plt Count 229 MPV 9.1 Immature Gran % (Auto) 0.400 Neut % (Auto) 78.7 H Lymph % (Auto) 12.8 L [place] % (Auto) 5.9 Eos % (Auto) 1.2 Baso % (Auto) 1.0 Absolute Neuts (auto) 6.6 Absolute Lymphs (auto) 1.06 Nucleated RBC % 0 Sodium Cancelled Potassium Cancelled Chloride Cancelled Carbon Dioxide Cancelled Anion Gap Cancelled BUN Cancelled Creatinine Cancelled Estim Creat Clear Calc Cancelled Est GFR (MDRD) Af Amer Cancelled Est GFR (MDRD) Non-Af Cancelled BUN/Creatinine Ratio Cancelled Glucose Cancelled Lactic Acid 1.5 Calcium Cancelled Total Bilirubin Cancelled AST Cancelled ALT Cancelled Alkaline Phosphatase Cancelled Total Protein Cancelled Albumin Cancelled Globulin Cancelled Albumin/Globulin Ratio Cancelled Urine Color Urine Clarity Urine pH Ur Specific [place] Urine Protein Urine Glucose (UA) Urine Ketones Urine Occult Blood Urine Nitrite Urine Bilirubin Urine Urobilinogen Ur Leukocyte Esterase Urine RBC Urine WBC Ur Squamous Epith Cells Ur Transition Epith Cell Urine Bacteria Urine Mucus 01/11/21 01/11/21 03:45 04:46 WBC RBC Hgb Hct MCV MCH MCHC RDW Std Deviation RDW Coeff of Alvina Plt Count MPV Immature Gran % (Auto) Neut % (Auto) Lymph % (Auto) [place] % (Auto) Eos % (Auto) Baso % (Auto) Absolute Neuts (auto) Absolute Lymphs (auto) Nucleated RBC % Sodium 133 L Potassium 5.5 H Chloride 97 L Carbon Dioxide 29.0 Anion Gap 7 BUN 58 H Creatinine 9.64 H* Estim Creat Clear Calc 5.39 Est GFR (MDRD) Af Amer 5 L Est GFR (MDRD) Non-Af 4 L BUN/Creatinine Ratio 6.0 L Glucose 278 H Lactic Acid Calcium 9.5 Total Bilirubin 0.40 AST 22 ALT 35 Alkaline Phosphatase 288 H Total Protein 7.2 Albumin 3.7 Globulin 3.5 Albumin/Globulin Ratio 1.1 Urine Color Yellow Urine Clarity Sl. Cloudy Urine pH 6.0 Ur Specific [place] 1.010 Urine Protein 100 H Urine Glucose (UA) 100 H Urine Ketones Negative Urine Occult Blood 50 H Urine Nitrite Negative Urine Bilirubin 3 H Urine Urobilinogen Normal Ur Leukocyte Esterase 100 H Urine RBC 0-5 SEEN Urine WBC 5-10 SEEN Ur Squamous Epith Cells 5-10 SEEN Ur Transition Epith Cell 0-5 SEEN Urine Bacteria RARE Urine Mucus RARE Radiology Impression Brain CT 01/11/21 03:42 IMPRESSION: No demonstrated acute intracranial process. Electronically Signed: Maximo Velazquez MD at 5:08 EDT , Service support , Chest X-Ray 01/11/21 04:00 IMPRESSION: No evidence for acute cardiopulmonary pathology. Inferiorly inserted central venous catheter with tip in the right atrium. Electronically Signed: Maximo Velazquez MD at 5:03 EDT , Service support , Assessment & Plan Assessment/Plan (1) Vertigo: PLAN: Vertigo Order MRI. Of note patient is at risk of nephrogenic systemic fibrosis. However dialysis supposed to be today. Schedule meclizine 3 times daily Valium5 mg PO Q8H PRN Vestibular rehab to be started inpatient; and possibly continuing outpatient if a central cause of vertigo is ruled out. QTC prolongation EKG with QTC of 503. Avoid QT prolongation drugs. End -stage renal disease on dialysis Dialysis Fridays. Creatinine 9.64. Baseline creatinine around 5. Bethanie-Petey and iron supplements continued Patient sees Dr. Gee, nephrology. Nephrology consult. Hypertension Blood pressure is not within goal Amlodipine; clonidine and lisinopril continued continued. Trend blood pressure and adjust blood pressure medications. Diabetes mellitus Patient with hyperglycemia on presentation Adjust basal and prandial insulin. Accu-Chek QA CHS with correction scale insulin ordered. DVT prophylaxis Subcutaneous heparin ordered (2) Dizziness of unknown etiology: (3) Prolonged QT interval: Visit Charges OBSV E&M: 60848 Initial observation care L3
--- NOTE | 2021-01-11 07:08 | MRI_ITS ---
STUDY: MRI BRAIN WITHOUT CONTRAST REASON FOR EXAM: Female, 55 years old. Vertigo X 3 DAYS TECHNIQUE: Standardized multiplanar fat and water weighted pulse sequences were obtained. COMPARISON: CT earlier today, MRI 04/06/2018 FINDINGS: There is mild cerebral atrophy with widening of the extra-axial spaces and ventricular dilatation. Normal white matter tracts of the supratentorial brain. There is no evidence for recent intracranial ischemia or other cause of cytotoxic edema on diffusion weighted imaging (DWI). Normal T2* images of the brain without demonstrated susceptibility artifact. There is no demonstrated hemosiderin stain. Normal bilateral basal ganglia. Normal thalami. There is no extra-axial fluid accumulation. Normal flow voids within the major intracranial circulation suggesting patency by spin echo criteria. Normal sella turcica, pituitary gland, infundibular stalk, optic chiasm and hypothalamus. Normal tectal plate and pineal gland. Normal midbrain, jhonny and medulla. Normal cerebellum. Normal basal cisterns. There is mild chronic otomastoiditis of the bilateral temporal bones. Normal bilateral internal auditory canals. No demonstrated orbital abnormality, within the constraints of a routine brain study. Normal visualized paranasal sinuses. Normal calvarium and skull base. Normal visualized soft tissue structures. Normal visualized upper cervical spine. MRI/Brain without Contrast IMPRESSION: Involutional changes of the brain, as described above. Mild bilateral mastoiditis. Electronically Signed: Mustapha Lagos MD at 16:03 EDT Tel , Service support ,
[2021-01-11] MEDS: diazePAM 5 MG Tablet PO (11:18)
--- NOTE | 2021-01-11 11:57 | CON.PCM.RE_ITS ---
Assessment & Plan Assessment/Plan (1) ESRD (end stage renal disease) on dialysis: PLAN: HD MWF, on dialysis without event (2) DM type 2 causing ESRD: (3) Hypertension: PLAN: BP stable (4) Vertigo: PLAN: MRI per primary service (5) Anxiety: (6) Depression: (7) Heart disease: PLAN: tachycardia (8) Thyroid disease: PLAN: on replacement hormone HPI Consult Data Date of Consult: 01/11/21 HPI Narrative HPI Narrative: GIULIANA BRAVO, is a 55 F who presents with vertigo that started 3 days ago after her last dialysis session on Monday.? The vertigo has progressively worsened.? The vertigo worsens when she stands? up and move, positional.? At the emergency department? patient was given Valium.?She has a history of a TIA years ago. She denies syncope, falling. Sugars have been elevated despite decreased appetite with vertigo. She has thyroid disease, chronic tachycardia. Denies CP, palpitations. 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 She has tunneled dialysis catheter rt groin s/p failed multiple dialysis access in her arms bilaterally. She has a f/u appt with vascular. currently receiving hemodialysis with stable BP. Scheduled for MRI after dialysis today. [facility] Medical History (Updated 01/11/21 @ 12:[address] Edwige Gee, ) Acid reflux Anxiety Congestive heart failure (CHF) Constipation Depression Diabetes Dialysis patient Former smoker Heart disease Hemorrhoids Hypertension Hypothyroidism Kidney disease Problem with dialysis access Thyroid disease TIA (transient ischemic attack) Wears hearing aid in both ears Home Medications amlodipine 10 mg tablet 10 mg PO DAILY 08/14/18 [History Last Taken 01/10/21] aspirin 81 mg tablet,delayed release 81 mg PO DAILY 08/14/18 [History Last Taken 01/10/21] atorvastatin 40 mg tablet 40 mg PO QHS 08/14/18 [History Last Taken 01/10/21] clonidine HCl 0.3 mg tablet 0.3 mg PO QHS 08/14/18 [History Last Taken 01/10/21] insulin aspart U-100 100 unit/mL (3 mL) subcutaneous pen 10 unit SC TIDCM 08/14/18 [History Last Taken 01/10/21] levothyroxine 112 mcg capsule 112 mcg PO DAILY 08/14/18 [History Last Taken 01/11/21] lisinopril 20 mg tablet 20 mg PO BID tab 08/14/18 [History Last Taken 01/10/21] insulin detemir U-100 54 units SC QHS 09/13/18 [History Last Taken 01/10/21] B complex-vitamin C-folic acid [Bethanie-Petey] 1 tab PO DAILY 01/11/21 [History Last Taken 01/10/21] ferric citrate [Auryxia] 210 mg PO TIDCM 01/11/21 [History Last Taken 01/10/21] Allergy/AdvReac Type Severity Reaction Status Date / Time chlorhexidine Allergy Mild rash Verified 01/11/21 02:40 codeine Allergy Unknown Unknown Verified 01/11/21 02:40 latex Allergy Unknown Unknown Verified 01/11/21 02:40 Penicillins Allergy Unknown Unknown Verified 01/11/21 02:40 Family History Brother Kidney disease Mother Cancer lung cancer Father Colon cancer Surgical History History of bowel resection History of partial hysterectomy Hx of appendectomy Hx of arteriovenostomy for renal dialysis Hx of bilateral breast reduction surgery Hx of cholecystectomy Social History Smoking Status: Former smoker alcohol intake: never substance use type: does not use caffeine: Yes what type of physical activity do you participate in: none frequency: does not exercise ROS ROS Narrative stable on dialysis Constitutional Constitutional: Reports weakness; Denies chills, fever(s) or malaise Eyes Eyes: Denies change in vision Cardiovascular Cardiovascular: Denies chest pain, edema or palpitations Gastrointestinal Gastrointestinal: Reports anorexia, nausea and vomiting Genitourinary Genitourinary: Denies difficulty urinating Musculoskeletal Musculoskeletal: Reports abnormal gait and other Details: unsteady gait, weakness with vertigo Psychiatric Psychiatric: Reports anxiety and depression Hematologic/Lymphatic Hematologic/Lymphatic: Reports anemia Physical Exam Const alert and oriented x3 HEENT normocephalic Eyes PERRL and EOMs intact bilaterally Resp clear to auscultation bilaterally Cardio regular rhythm Rate: regular rate and tachycardic GI non-tender and non-distended Palpation: soft Extremity full ROM and no clubbing, cyanosis or edema Extremity Narrative: failed AVF rt upper arm Skin no wounds Psych cooperative Lab / Micro Data Result Diagrams: 01/11/21 03:40 01/11/21 04:46 Labs: Laboratory Results - last 24 hr 01/11/21 01/11/21 01/11/21 03:40 03:40 03:40 WBC 8.3 RBC 3.37 L Hgb 11.3 L Hct 33.5 L MCV 99.4 H MCH 33.5 H MCHC 33.7 RDW Std Deviation 44.0 H RDW Coeff of Alvina 12.0 Plt Count 229 MPV 9.1 Immature Gran % (Auto) 0.400 Neut % (Auto) 78.7 H Lymph % (Auto) 12.8 L [place] % (Auto) 5.9 Eos % (Auto) 1.2 Baso % (Auto) 1.0 Absolute Neuts (auto) 6.6 Absolute Lymphs (auto) 1.06 Nucleated RBC % 0 Sodium Cancelled Potassium Cancelled Chloride Cancelled Carbon Dioxide Cancelled Anion Gap Cancelled BUN Cancelled Creatinine Cancelled Estim Creat Clear Calc Cancelled Est GFR (MDRD) Af Amer Cancelled Est GFR (MDRD) Non-Af Cancelled BUN/Creatinine Ratio Cancelled Glucose Cancelled Lactic Acid 1.5 Calcium Cancelled Total Bilirubin Cancelled AST Cancelled ALT Cancelled Alkaline Phosphatase Cancelled Total Protein Cancelled Albumin Cancelled Globulin Cancelled Albumin/Globulin Ratio Cancelled Urine Color Urine Clarity Urine pH Ur Specific [place] Urine Protein Urine Glucose (UA) Urine Ketones Urine Occult Blood Urine Nitrite Urine Bilirubin Urine Urobilinogen Ur Leukocyte Esterase Urine RBC Urine WBC Ur Squamous Epith Cells Ur Transition Epith Cell Urine Bacteria Urine Mucus 01/11/21 01/11/21 03:45 04:46 WBC RBC Hgb Hct MCV MCH MCHC RDW Std Deviation RDW Coeff of Alvina Plt Count MPV Immature Gran % (Auto) Neut % (Auto) Lymph % (Auto) [place] % (Auto) Eos % (Auto) Baso % (Auto) Absolute Neuts (auto) Absolute Lymphs (auto) Nucleated RBC % Sodium 133 L Potassium 5.5 H Chloride 97 L Carbon Dioxide 29.0 Anion Gap 7 BUN 58 H Creatinine 9.64 H* Estim Creat Clear Calc 5.39 Est GFR (MDRD) Af Amer 5 L Est GFR (MDRD) Non-Af 4 L BUN/Creatinine Ratio 6.0 L Glucose 278 H Lactic Acid Calcium 9.5 Total Bilirubin 0.40 AST 22 ALT 35 Alkaline Phosphatase 288 H Total Protein 7.2 Albumin 3.7 Globulin 3.5 Albumin/Globulin Ratio 1.1 Urine Color Yellow Urine Clarity Sl. Cloudy Urine pH 6.0 Ur Specific [place] 1.010 Urine Protein 100 H Urine Glucose (UA) 100 H Urine Ketones Negative Urine Occult Blood 50 H Urine Nitrite Negative Urine Bilirubin 3 H Urine Urobilinogen Normal Ur Leukocyte Esterase 100 H Urine RBC 0-5 SEEN Urine WBC 5-10 SEEN Ur Squamous Epith Cells 5-10 SEEN Ur Transition Epith Cell 0-5 SEEN Urine Bacteria RARE Urine Mucus RARE Radiology Impression Brain CT 01/11/21 03:42 IMPRESSION: No demonstrated acute intracranial process. Electronically Signed: Maximo Velazquez MD at 5:08 EDT , Service support , Chest X-Ray 01/11/21 04:00 IMPRESSION: No evidence for acute cardiopulmonary pathology. Inferiorly inserted central venous catheter with tip in the right atrium. Electronically Signed: Maximo Velazquez MD at 5:03 EDT , Service support ,
[2021-01-11 14:06] LABS: Bedside Glucose 164 mg/dL (70-110)
[2021-01-11] MEDS: Heparin 10,000 UNITS/10 ML Vial IV (14:10)
[2021-01-11] MEDS: Heparin Injection (Vial) 5,000 UNIT/ML VIAL 5000 UNIT SC ×2 (14:11→22:24)
[2021-01-11] MEDS: Folic Acid/Vitamin B Comp W-C 1 Capsule 1 CAP PO (14:13)
[2021-01-11] MEDS: Aspirin E.C. 81 MG Tablet PO (14:13)
[2021-01-11] MEDS: Insulin Lispro 100 UNIT/ML INSULN.PEN 8 UNIT SC ×2 (14:13→17:40)
--- NOTE | 2021-01-11 15:11 | DIALYSIS ---
HD x 3.5 hours complete. Tolerated tx well. Ran on 2k bath. No fluid removed. Used right femoral catheter. Lumens closed with heparin per fill volume. Caps placed. Dressing is dry and intact. Report given to JESSICA Moore.
[2021-01-11] MEDS: Clonidine HCl 0.1 MG, Clonidine HCl 0.2 MG 0.3 MG PO (16:41)
[2021-01-11 17:46] LABS: Bedside Glucose 215 mg/dL (70-110)
[2021-01-11] MEDS: Lisinopril 20 MG Tablet PO (22:23)
[2021-01-11] MEDS: Atorvastatin Calcium 40 MG Tablet PO (22:25)
[2021-01-11 22:30] LABS: Bedside Glucose 219 mg/dL (70-110)
[2021-01-12] VITALS (8 sets, daily range): BP systolic 91–118; BP diastolic 46–58; PULSE 73–91; RESP 16–18; TEMP 36–36.8; O2SAT 95–100
[2021-01-12] MEDS: Meclizine HCl 25 MG Tablet PO (05:44)
[2021-01-12] MEDS: Heparin Injection (Vial) 5,000 UNIT/ML VIAL 5000 UNIT SC (05:44)
[2021-01-12] MEDS: Levothyroxine 112 MCG Tablet PO (05:44)
[2021-01-12 05:58] LABS: Absolute Lymphocyte Count 1.87 X10^3/uL (0.83-4.51); Absolute Neutrophil Count 2.9 X10^3/uL (2.0-7.7); Basophil# 0.08 X10^3/uL; Basophil% 1.5 % (0-1); Eosinophil# 0.16 X10^3/uL; Eosinophils% 2.9 % (0-5); Hematocrit 29.7 % (37-47); Hemoglobin 9.4 g/dL (12.0-15.0); Lymphocyte # 1.87 X10^3/ul (0.83-4.51); Lymphocyte % 34.2 % (19-41); Mean Corp Hgb Conc 31.6 g/dL (32-36); Mean Corpuscular Hgb 31.9 pg (27.0-32.0); Mean Corpuscular Volume 100.7 fL (81-99); Mean Platelet Vol. 9.1 fl (6.2-12.0); Monocyte# 0.42 X10^3/uL; Monocyte% 7.7 % (0-10); NRBC Flagged by Analyzer 0 % (0-5); Neutrophil # 2.91 X10^3/uL (2.7-7.7); Neutrophil % 53.3 % (47-70); Platelet Count 208 K/mm3 (150-450); RBC Distribution Width CV 12.3 % (11.6-14.6); RBC Distribution Width SD 45.4 fl (35.1-43.9); Red Blood Count 2.95 M/mm3 (4.2-5.4); White Blood Count 5.5 K/mm3 (4.4-11.0)
[2021-01-12 06:29] LABS: Anion Gap 4 (5-15); BUN 29 mg/dL (7-18); BUN/Creat Ratio 5.2 RATIO (10-20); Calcium,Total 8.6 mg/dL (8.5-10.1); Chloride 103 mmol/L (98-107); Creatinine, Serum 5.56 mg/dL (0.55-1.02); EST Glomerular Filtration Rate 8 mL/min (>60); Est Glom Filt Rate - Afr Amer 10 mL/min (>60); Estimated Creatinine Clearance 9.35 ml/min; Glucose 105 mg/dL (74-106); Potassium 4.4 mmol/L (3.5-5.1); Sodium Level 137 mmol/L (136-145)
[2021-01-12] MEDS: Folic Acid/Vitamin B Comp W-C 1 Capsule 1 CAP PO (08:21)
[2021-01-12] MEDS: Clonidine HCl 0.1 MG, Clonidine HCl 0.2 MG 0.3 MG PO (08:21)
[2021-01-12] MEDS: Aspirin E.C. 81 MG Tablet PO (08:21)
[2021-01-12] MEDS: Lisinopril 20 MG Tablet PO (08:21)
[2021-01-12] MEDS: amLODIPine 10 MG Tablet PO (08:21)
[2021-01-12 08:41] LABS: Bedside Glucose 79 mg/dL (70-110)
[2021-01-12 08:41] LABS: Bedside Glucose 60 mg/dL (70-110)
--- NOTE | 2021-01-12 11:50 | PCM.DC ---
Discharge Instructions Diet Discharge Diet: Carb Control Diet and Renal Diet Activity Discharge Activity: Return to Normal Activity Follow Up Care Test Results: Test results from this visit will be discussed in further detail at your follow-up appointment, if applicable. Discharge Plan Admission Admit Date/Time: 01/11/21 06:28 Primary Reason for Your Visit: Dizziness Attending Provider: Sarah Do Primary Care Provider: Maldonado Denny Consulting Providers: Edwige Gee Discharge Orders/Prescriptions Prescriptions: Continued aspirin [Adult Low Dose Aspirin] 81 mg tablet,delayed release (DR/EC) 81 mg PO DAILY RF: 0 clonidine HCl 0.3 mg tablet 0.3 mg tablet 0.3 mg PO QHS RF: 0 lisinopril 20 mg tablet 20 mg PO BID RF: 0 levothyroxine 112 mcg capsule 112 mcg capsule 112 mcg PO DAILY RF: 0 atorvastatin 40 mg tablet 40 mg PO QHS RF: 0 amlodipine 10 mg tablet 10 mg PO DAILY RF: 0 Bethanie-Petey 0.8 mg Tablet 1 tab PO DAILY RF: 0 Auryxia 210 mg iron Tablet 210 mg PO TIDCM RF: 0 Changed insulin aspart U-100 [Novolog Flexpen U-100 Insulin] 100 unit/mL insulin pen 8 unit SC TIDCM Qty: 0 RF: 0 insulin detemir U-100 100 UNITS/ML insulin pen 48 unit SC QHS Qty: 0 RF: 0 Referrals / Follow Up: Ruiz Kirby MD [STAFF PHYSICIAN] - 01/13/21 1:30 pm (Please bring current insurance to update records.) Maldonado Denny MD [Primary Care Provider] - Within 2 Weeks Disposition Disposition (needs filled in before D/C Order can be placed): Home, self care
[2021-01-12] MEDS: Insulin Lispro 100 UNIT/ML INSULN.PEN 8 UNIT SC (11:56)
--- NOTE | 2021-01-12 11:57 | DS.PCM_ITS ---
Providers Date of Admission: 01/11/21 Primary Care Physician: Dr. Maldonado Denny MD Consultations 01/11/21 07:08 Consult: Nephrology Routine Consulting Provider: Edwige Gee Reason for Consult: ESRD on dialysis EMERGENT Consult: No MD Notified: Yes Date Notified:: 01/11/21 Time Notified: 06:23 Method of Notification: Text Reason For Visit: INTRACTABLE VERTIGO Diagnosis Discharge Diagnosis (1) ESRD (end stage renal disease) on dialysis: Status: Acute Code(s): N18.6 - End stage renal disease; Z99.2 - Dependence on renal dialysis (2) DM type 2 causing ESRD: Status: Acute Code(s): E11.22 - Type 2 diabetes mellitus with diabetic chronic kidney disease; N18.6 - End stage renal disease (3) Hypertension: Status: Chronic Code(s): I10 - Essential (primary) hypertension (4) Vertigo: Status: Acute Code(s): R42 - Dizziness and giddiness (5) Anxiety: Status: Chronic Code(s): F41.9 - Anxiety disorder, unspecified (6) Depression: Status: Chronic Code(s): F32.9 - Major depressive disorder, single episode, unspecified (7) Heart disease: Status: Chronic Code(s): I51.9 - Heart disease, unspecified (8) Thyroid disease: Status: Chronic Code(s): E07.9 - Disorder of thyroid, unspecified Medications at Discharge Home Medications amlodipine 10 mg tablet 10 mg PO DAILY 08/14/18 aspirin 81 mg tablet,delayed release 81 mg PO DAILY 08/14/18 atorvastatin 40 mg tablet 40 mg PO QHS 08/14/18 clonidine HCl 0.3 mg tablet 0.3 mg PO QHS 08/14/18 levothyroxine 112 mcg capsule 112 mcg PO DAILY 08/14/18 lisinopril 20 mg tablet 20 mg PO BID tab 08/14/18 Auryxia 210 mg PO TIDCM 01/11/21 Bethanie-Petey 1 tab PO DAILY 01/11/21 insulin aspart U-100 [Novolog Flexpen U-100 Insulin] 8 unit SC TIDCM #0 ml 01/12/21 insulin detemir U-100 48 unit SC QHS #0 ml 01/12/21 ABG / Lab / Microbiology Data Result Diagrams: 01/12/21 05:40 01/12/21 05:40 Laboratory: Laboratory Results - last 24 hr 01/11/21 01/11/21 01/11/21 13:54 17:39 22:14 WBC RBC Hgb Hct MCV MCH MCHC RDW Std Deviation RDW Coeff of Alvina Plt Count MPV Immature Gran % (Auto) Neut % (Auto) Lymph % (Auto) [place] % (Auto) Eos % (Auto) Baso % (Auto) Absolute Neuts (auto) Absolute Lymphs (auto) Nucleated RBC % Sodium Potassium Chloride Carbon Dioxide Anion Gap BUN Creatinine Estim Creat Clear Calc Est GFR (MDRD) Af Amer Est GFR (MDRD) Non-Af BUN/Creatinine Ratio Glucose Calcium POC Glucose 164 H 215 H 219 H 01/12/21 01/12/21 01/12/21 05:40 05:40 08:14 WBC 5.5 RBC 2.95 L Hgb 9.4 L Hct 29.7 L MCV 100.7 H MCH 31.9 MCHC 31.6 L D RDW Std Deviation 45.4 H RDW Coeff of Alvina 12.3 Plt Count 208 MPV 9.1 Immature Gran % (Auto) 0.400 Neut % (Auto) 53.3 Lymph % (Auto) 34.2 [place] % (Auto) 7.7 Eos % (Auto) 2.9 Baso % (Auto) 1.5 H Absolute Neuts (auto) 2.9 Absolute Lymphs (auto) 1.87 Nucleated RBC % 0 Sodium 137 Potassium 4.4 Chloride 103 Carbon Dioxide 30.0 Anion Gap 4 L BUN 29 H Creatinine 5.56 H Estim Creat Clear Calc 9.35 Est GFR (MDRD) Af Amer 10 L Est GFR (MDRD) Non-Af 8 L BUN/Creatinine Ratio 5.2 L Glucose 105 Calcium 8.6 POC Glucose 60 L 01/12/21 08:34 WBC RBC Hgb Hct MCV MCH MCHC RDW Std Deviation RDW Coeff of Alvina Plt Count MPV Immature Gran % (Auto) Neut % (Auto) Lymph % (Auto) [place] % (Auto) Eos % (Auto) Baso % (Auto) Absolute Neuts (auto) Absolute Lymphs (auto) Nucleated RBC % Sodium Potassium Chloride Carbon Dioxide Anion Gap BUN Creatinine Estim Creat Clear Calc Est GFR (MDRD) Af Amer Est GFR (MDRD) Non-Af BUN/Creatinine Ratio Glucose Calcium POC Glucose 79 Radiography Diagnostic Testing: Radiology Impression Brain MRI 01/11/21 07:08 IMPRESSION: Involutional changes of the brain, as described above. Mild bilateral mastoiditis. Electronically Signed: Mustapha Lagos MD at 16:03 EDT Tel , Service support , D/C Instructions Discharge Diet: Carb Control Diet and Renal Diet Discharge Activity: Return to Normal Activity Discharge Plan Admission Admit Date/Time: 01/11/21 06:28 Primary Reason for Your Visit: Dizziness Attending Provider: Sarah Do Primary Care Provider: Maldonado Denny Consulting Providers: Edwige Gee Discharge Orders/Prescriptions Prescriptions: Continued aspirin [Adult Low Dose Aspirin] 81 mg tablet,delayed release (DR/EC) 81 mg PO DAILY RF: 0 clonidine HCl 0.3 mg tablet 0.3 mg tablet 0.3 mg PO QHS RF: 0 lisinopril 20 mg tablet 20 mg PO BID RF: 0 levothyroxine 112 mcg capsule 112 mcg capsule 112 mcg PO DAILY RF: 0 atorvastatin 40 mg tablet 40 mg PO QHS RF: 0 amlodipine 10 mg tablet 10 mg PO DAILY RF: 0 Bethanie-Petey 0.8 mg Tablet 1 tab PO DAILY RF: 0 Auryxia 210 mg iron Tablet 210 mg PO TIDCM RF: 0 Changed insulin aspart U-100 [Novolog Flexpen U-100 Insulin] 100 unit/mL insulin pen 8 unit SC TIDCM Qty: 0 RF: 0 insulin detemir U-100 100 UNITS/ML insulin pen 48 unit SC QHS Qty: 0 RF: 0 Referrals / Follow Up: Ruiz Kirby MD [STAFF PHYSICIAN] - 01/13/21 1:30 pm (Please bring current insurance to update records.) Maldonado Denny MD [Primary Care Provider] - Within 2 Weeks Disposition Disposition (needs filled in before D/C Order can be placed): Home, self care
[2021-01-12 12:15] LABS: Bedside Glucose 212 mg/dL (70-110)
[2021-01-12] MEDS: 0.9% Saline Lock 10 ML Syringe IV (12:33)
--- NOTE | 2021-01-12 13:21 | CASEMGMT ---
JESSICA CM in to discuss NGUYEN form with patient. RN CM explained NGUYEN form, patient voiced understanding. Pt signed form and filed in chart. Pt provided with a copy of signed NGUYEN form. Patient had no further questions or concerns at this time.
--- NOTE | 2021-01-12 13:44 | PHA.DC.MR ---
Pharmacy Service has performed discharge medication reconciliation for this patient. The patient's discharge medication list was reviewed for discrepancies and discrepancies were resolved. Home Medications aspirin 81 mg tablet,delayed release 81 mg PO DAILY 08/14/18 atorvastatin 40 mg tablet 40 mg PO QHS 08/14/18 clonidine HCl 0.3 mg tablet 0.3 mg PO QHS 08/14/18 levothyroxine 112 mcg capsule 112 mcg PO DAILY 08/14/18 lisinopril 20 mg tablet 20 mg PO BID tab 08/14/18 Auryxia 210 mg PO TIDCM 01/11/21 Bethanie-Petey 1 tab PO DAILY 01/11/21 amlodipine 2.5 mg PO DAILY #30 tab 01/12/21 insulin aspart U-100 [Novolog Flexpen U-100 Insulin] 8 unit SC TIDCM #0 ml 01/12/21 insulin detemir U-100 48 unit SC QHS #0 ml 01/12/21
--- NOTE | 2021-01-12 18:09 | PCM.DC.SUM ---
Providers Date of Admission: 01/11/21 Date of Discharge: 01/12/21 Primary Care Physician: Dr. Maldonado Denny MD Consultations 01/11/21 07:08 Consult: Nephrology Routine Consulting Provider: Edwige Gee Reason for Consult: ESRD on dialysis EMERGENT Consult: No MD Notified: Yes Date Notified:: 01/11/21 Time Notified: 06:23 Method of Notification: Text Reason For Visit: INTRACTABLE VERTIGO Diagnosis Discharge Diagnosis (1) ESRD (end stage renal disease) on dialysis: Status: Chronic Code(s): N18.6 - End stage renal disease; Z99.2 - Dependence on renal dialysis (2) DM type 2 causing ESRD: Status: Chronic Code(s): E11.22 - Type 2 diabetes mellitus with diabetic chronic kidney disease; N18.6 - End stage renal disease (3) Hypertension: Status: Chronic Code(s): I10 - Essential (primary) hypertension (4) Vertigo: Status: Resolved Code(s): R42 - Dizziness and giddiness (5) Anxiety: Status: Chronic Code(s): F41.9 - Anxiety disorder, unspecified (6) Depression: Status: Chronic Code(s): F32.9 - Major depressive disorder, single episode, unspecified (7) Heart disease: Status: Chronic Code(s): I51.9 - Heart disease, unspecified (8) Thyroid disease: Status: Chronic Code(s): E07.9 - Disorder of thyroid, unspecified Medications at Discharge Home Medications aspirin 81 mg tablet,delayed release 81 mg PO DAILY 08/14/18 atorvastatin 40 mg tablet 40 mg PO QHS 08/14/18 clonidine HCl 0.3 mg tablet 0.3 mg PO QHS 08/14/18 levothyroxine 112 mcg capsule 112 mcg PO DAILY 08/14/18 lisinopril 20 mg tablet 20 mg PO BID tab 08/14/18 Auryxia 210 mg PO TIDCM 01/11/21 Bethanie-Petey 1 tab PO DAILY 01/11/21 amlodipine 2.5 mg PO DAILY #30 tab 01/12/21 insulin aspart U-100 [Novolog Flexpen U-100 Insulin] 8 unit SC TIDCM #0 ml 01/12/21 insulin detemir U-100 48 unit SC QHS #0 ml 01/12/21 Hospital Course Operations None Procedures None Summary of Care Provided Minutes Spent on Discharge: 40 Hospital Course: 55-year-old with past medical history of ESRD, on hemodialysis who presented with symptoms of vertigo that started 3 days prior to admission. Her vertigo is worse when she stands or moves or changes position. Patient reports that her blood pressure is low. She was admitted to the telemetry floor and worked up for possible stroke. MRI brain was negative for acute stroke but showed bilateral mastoiditis. Patient had low blood pressures. Changes were made to her medications. Patient received dialysis on the day of discharge. Patient's blood pressures were relatively low but not clearly orthostatic ,on the day of discharge. Home amlodipine 10 mg was decreased to 2.5 mg. Patient received 500 mils of IV fluid prior to discharge. Evaluation of both ears showed bilateral ear fullness without erythema or redness of the drum. She will follow up with the ENT within a week. 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 Physical Exam Narrative Physical exam: General: Alert, Oriented x3, Cooperative, No apparent distress, Well developed HEENT: Atraumatic, bilateral ears full, shiny, no erythema of the eardrum Oral: Moist Mucosa Neck: Supple Lungs: Clear to auscultation Cardiovascular: HS I+II, regular, no murmurs Abdomen: Bowel Sounds Present, Soft, Non Tender Extremities: No edema Skin: No rashes, No breakdown Neurological: Grossly intact Psych/Mental Status: Appropriate ABG / Lab / Microbiology Data Result Diagrams: 01/12/21 05:40 01/12/21 05:40 Laboratory: Laboratory Results - last 24 hr 01/11/21 01/12/21 01/12/21 22:14 05:40 05:40 WBC 5.5 RBC 2.95 L Hgb 9.4 L Hct 29.7 L MCV 100.7 H MCH 31.9 MCHC 31.6 L D RDW Std Deviation 45.4 H RDW Coeff of Alvina 12.3 Plt Count 208 MPV 9.1 Immature Gran % (Auto) 0.400 Neut % (Auto) 53.3 Lymph % (Auto) 34.2 [place] % (Auto) 7.7 Eos % (Auto) 2.9 Baso % (Auto) 1.5 H Absolute Neuts (auto) 2.9 Absolute Lymphs (auto) 1.87 Nucleated RBC % 0 Sodium 137 Potassium 4.4 Chloride 103 Carbon Dioxide 30.0 Anion Gap 4 L BUN 29 H Creatinine 5.56 H Estim Creat Clear Calc 9.35 Est GFR (MDRD) Af Amer 10 L Est GFR (MDRD) Non-Af 8 L BUN/Creatinine Ratio 5.2 L Glucose 105 Calcium 8.6 POC Glucose 219 H 01/12/21 01/12/21 01/12/21 08:14 08:34 11:45 WBC RBC Hgb Hct MCV MCH MCHC RDW Std Deviation RDW Coeff of Alvina Plt Count MPV Immature Gran % (Auto) Neut % (Auto) Lymph % (Auto) [place] % (Auto) Eos % (Auto) Baso % (Auto) Absolute Neuts (auto) Absolute Lymphs (auto) Nucleated RBC % Sodium Potassium Chloride Carbon Dioxide Anion Gap BUN Creatinine Estim Creat Clear Calc Est GFR (MDRD) Af Amer Est GFR (MDRD) Non-Af BUN/Creatinine Ratio Glucose Calcium POC Glucose 60 L 79 212 H D/C Instructions Discharge Diet: Carb Control Diet and Renal Diet Discharge Activity: Return to Normal Activity Meaningful Use Info Meaningful Use Diagnoses (Choose all that apply): None applicable Discharge Plan Admission Admit Date/Time: 01/11/21 06:28 Primary Reason for Your Visit: Dizziness Attending Provider: Sarah Do Primary Care Provider: Maldonado Denny Consulting Providers: Edwige Gee Discharge Orders/Prescriptions Prescriptions: New amlodipine 2.5 mg tablet 2.5 mg PO DAILY Qty: 30 RF: 0 Continued aspirin [Adult Low Dose Aspirin] 81 mg tablet,delayed release (DR/EC) 81 mg PO DAILY RF: 0 clonidine HCl 0.3 mg tablet 0.3 mg tablet 0.3 mg PO QHS RF: 0 lisinopril 20 mg tablet 20 mg PO BID RF: 0 levothyroxine 112 mcg capsule 112 mcg capsule 112 mcg PO DAILY RF: 0 atorvastatin 40 mg tablet 40 mg PO QHS RF: 0 Bethanie-Petey 0.8 mg Tablet 1 tab PO DAILY RF: 0 Auryxia 210 mg iron Tablet 210 mg PO TIDCM RF: 0 Changed insulin aspart U-100 [Novolog Flexpen U-100 Insulin] 100 unit/mL insulin pen 8 unit SC TIDCM Qty: 0 RF: 0 insulin detemir U-100 100 UNITS/ML insulin pen 48 unit SC QHS Qty: 0 RF: 0 Discontinued amlodipine 10 mg tablet 10 mg PO DAILY RF: 0 Referrals / Follow Up: Ruiz Kirby MD [STAFF PHYSICIAN] - 01/13/21 1:30 pm (Please bring current insurance to update records.) Maldonado Denny MD [Primary Care Provider] - Within 2 Weeks Disposition Disposition (needs filled in before D/C Order can be placed): Home, self care Visit Charges OBSV E&M: 27013 Observation care discharge
== END 2021-01-12 13:33 | disposition home or self-care (01) ==
LOC: ED 06:32 → PCU 06:32
PROVIDERS: Admitting Provider Hospitalist; Emergency Provider Emergency Medicine; PCP Internal Medicine; Visit Provider Internal Medicine
DX: R42 Dizziness and giddiness (principal); K21.9 Gastro-esophageal reflux disease without esophagitis; I13.2 Hypertensive heart and chronic kidney disease with heart failure and with stage 5 chronic kidney disease, or end stage renal disease; E11.22 Type 2 diabetes mellitus with diabetic chronic kidney disease; E03.9 Hypothyroidism, unspecified; Z99.2 Dependence on renal dialysis; Z79.899 Other long term (current) drug therapy; Z79.4 Long term (current) use of insulin; Z87.891 Personal history of nicotine dependence; N18.6 End stage renal disease; I50.9 Heart failure, unspecified; Z79.82 Long term (current) use of aspirin; E11.65 Type 2 diabetes mellitus with hyperglycemia; R94.31 Abnormal electrocardiogram [ECG] [EKG]
CPT/HCPCS: 36415; 70450; 70551; 71045; 80048; 80053; 81001; 82962; 83605; 85025; 90937; 93005; 96372; 96374; 96375; 99218; 99285; J7030; J7040; A4216; G0257; G0378

== ENCOUNTER 2022-06-21 14:00 | Emergency (ER) | payer MEDICARE, MEDICAID, SELFPAY ==
[2022-06-21 14:01] VITALS: BP 163/59; PULSE 116; RESP 16; TEMP 36.1; O2SAT 99; BMI 27.2
--- NOTE | 2022-06-21 14:31 | EX.ED.VIS.UR ---
HPI HPI - URI History of Present Illness Chief Complaint: Ear Problem Detail of Chief Complaint: Bilateral ear pain x3 to 4 days Informant: patient Narrative Narrative: Patient presents to the emergency department with complaint of bilateral ear pain that she has had for about 3 to 4 days. Patient was seen at urgent care today and was referred to the emergency department for IV antibiotics. Patient denies any fevers. Patient denies cough or sore throat. She states that she has had some drainage from the ears. Patient has history of end-stage renal disease and is on dialysis. Patient also is a diabetic and has history of hypertension high cholesterol. ROS ROS ED Review of Systems ROS Unobtainable: other Constitutional Constitutional ED: Reports lethargy; Denies chills, fever(s), sweats or weight loss Eyes Eyes: Denies blurry vision, change in vision or diplopia ENT ENT ED: Reports ear pain; Denies rhinorrhea or sore throat Cardiovascular Cardiovascular: Denies chest pain, orthopnea or racing heartbeat Respiratory/Chest Respiratory/Chest: Denies cough, dyspnea, dyspnea on exertion, orthopnea or sputum Gastrointestinal Gastrointestinal: Denies abdominal pain, diarrhea, nausea or vomiting Genitourinary Genitourinary ED: Denies dysuria, hematuria or urinary frequency Musculoskeletal Musculoskeletal: Denies arthralgias, back pain, myalgias or neck pain Integumentary Denies abscess, Abrasions or rash Neurologic Neurologic: Denies headache(s) or weakness Psychiatric Psychiatric: Denies anxiety, depression or suicidal thoughts Endocrine Endocrinology: Denies polydipsia, polyphagia or polyuria Hematologic/Lymphatic Hematologic/Lymphatic: Denies easy bleeding, easy bruising or lymphadenopathy Allergic/Immunologic Allergic/Immunologic ED: Denies mouth swelling, tongue swelling or urticaria PFSH PFSH Medical History Acid reflux Anxiety Congestive heart failure (CHF) Constipation Depression Diabetes Dialysis patient Former smoker Heart disease Hemorrhoids Hypertension Hypothyroidism Kidney disease Problem with dialysis access Thyroid disease TIA (transient ischemic attack) Wears hearing aid in both ears Home Medications aspirin 81 mg tablet,delayed release (Adult Low Dose Aspirin) 81 mg PO DAILY heart health 08/14/18 [History Last Taken 01/10/21] atorvastatin 40 mg tablet 40 mg PO QHS cholesterol 08/14/18 [History Last Taken 01/10/21] clonidine HCl 0.3 mg tablet 0.3 mg PO QHS blood pressure 08/14/18 [History Last Taken 01/10/21] levothyroxine 112 mcg capsule 112 mcg PO DAILY thyroid 08/14/18 [History Last Taken 01/11/21] vitamin B complex-vitamin C-folic acid 0.8 mg tablet (Bethanie-Petey) 1 tab PO DAILY vitamin 01/11/21 [History Last Taken 01/10/21] insulin aspart U-100 100 unit/mL (3 mL) subcutaneous pen (Novolog Flexpen U-100 Insulin aspart) 8 unit (0.08 mL) subcut TIDCM insulin #0 mL 01/12/21 [Rx Last Taken 01/10/21] insulin detemir U-100 100 unit/mL (3 mL) subcutaneous pen 48 unit (0.48 mL) subcut QHS insulin #0 mL 01/12/21 [Rx Last Taken 01/10/21] hydrocodone-acetaminophen 5-325mg 5mg-325mg 1 tab PO Q4H PRN PRN Pain 2 days #10 TABLETS 06/21/22 [Rx Last Taken Unknown] levofloxacin 750 mg tablet 750 mg PO DAILY #10 tabs 06/21/22 [Rx Last Taken Unknown] Allergy/AdvReac Type Severity Reaction Status Date / Time chlorhexidine Allergy Mild rash Verified 06/21/22 14:03 codeine Allergy Unknown Unknown Verified 06/21/22 14:03 latex Allergy Unknown Unknown Verified 06/21/22 14:03 Penicillins Allergy Unknown Unknown Verified 06/21/22 14:03 Family History Brother Kidney disease Mother Cancer lung cancer Father Colon cancer Surgical History History of bowel resection History of partial hysterectomy Hx of appendectomy Hx of arteriovenostomy for renal dialysis Hx of bilateral breast reduction surgery Hx of cholecystectomy Social History Smoking Status: Former smoker alcohol intake: never substance use type: does not use caffeine: Yes what type of physical activity do you participate in: none frequency: does not exercise EXAM Physical Exam Const Vital Signs: 06/21/22 14:01 Temperature 96.9 F L Temperature Source Temporal Pulse Rate 116 H Respiratory Rate 16 Blood Pressure 163/59 H Blood Pressure Mean 93 Pulse Ox 99 Oxygen Delivery Method Room Air Positive well nourished and well developed General Appearance ED: well developed and NAD HEENT Reports moist mucous membranes HEENT Narrative: Patient with decreased landmarks bilaterally with retraction of the tympanic membranes. There are some air-fluid levels behind the left TM. No pain with traction on pinna. Patient does have some mild bilateral tenderness over the mastoids without any evidence of erythema. normocephalic and atraumatic; Negative for trauma or tenderness Eyes PERRL and EOMs intact bilaterally General Eye ED: Negative for pale conjunctiva or scleral icterus Neck no lymphadenopathy, supple and no JVD General: Negative for tenderness Chest Wall inspection of chest normal and palpation of chest normal Chest: Negative for tenderness Resp normal respiratory effort and clear to auscultation bilaterally Effort and Inspection: Negative for respiratory distress or pain with movement Auscultation: Negative for rhonchi, wheezes or diminished lung sounds Cardio regular rate, regular rhythm, S1 normal heart sound, S2 normal heart sound and no murmurs Peripheral Pulses: pulses 2+ throughout GI normal to inspection, nondistended, normoactive bowel sounds, soft to palpation, non-tender, non-distended and no masses Back/Spine no CVA tenderness and no thoracic nor lumbar tenderness Extremity normal to inspection General Extremety ED: Negative for edema General Extremity: Negative for edema Neuro oriented x3, CN's II-XII intact bilaterally, no sensory deficits noted and gait normal Sensorium / Orientation: awake, alert, oriented to person, oriented to place and oriented to time Motor Exam: strength 5/5 throughout and strength abnormal Psych mental status grossly normal Skin no rashes or lesions noted and no wounds MDM MDM MDM Narrative Medical decision making narrative: Case discussed with ENT. At this point we will start her on antibiotics and have close follow-up with Dr. Lane Kirby. Patient advised to return if severe pain in her head or ears, fever, or condition should worsen anyway. Patient will be started on Levaquin. Discharge Plan Triage Chief Complaint: Ear Problem ED Provider: Isi Hunter Dx/Rx/DC Orders Clinical Impression: Otitis media Instructions: ED Otitis Media Antibiotic ... Prescriptions: New levofloxacin 750 mg tablet 750 mg PO DAILY Qty: 10 0RF hydrocodone-acetaminophen [hydrocodone-acetaminophen] 5-325 mg tablet 1 tab PO Q4H PRN PRN (Reason: Pain) 2 Days Qty: 10 0RF No Action aspirin [Adult Low Dose Aspirin] 81 mg tablet,delayed release (DR/EC) 81 mg PO DAILY clonidine HCl 0.3 mg tablet 0.3 mg tablet 0.3 mg PO QHS levothyroxine 112 mcg capsule 112 mcg capsule 112 mcg PO DAILY atorvastatin 40 mg tablet 40 mg PO QHS Bethanie-Petey 0.8 mg Tablet 1 tab PO DAILY insulin aspart U-100 [Novolog Flexpen U-100 Insulin] 100 unit/mL insulin pen 8 unit SC TIDCM Qty: 0 0RF insulin detemir U-100 100 UNITS/ML insulin pen 48 unit SC QHS Qty: 0 0RF Primary Care Provider: Maldonado Denny Referrals: Lane Kirby MD [Med Staff - Active Staff] - 3-5 Days Maldonado Denny MD [Primary Care Provider] - Disposition Disposition: Home, Self Care
[2022-06-21] MEDS: levoFLOXacin 750 MG Tablet PO (14:56)
== END 2022-06-21 14:59 | disposition home or self-care (01) ==
LOC: ED 14:44
PROVIDERS: Emergency Provider Emergency Medicine; PCP Internal Medicine; Visit Provider Emergency Medicine
DX: H66.93 Otitis media, unspecified, bilateral (principal); I13.2 Hypertensive heart and chronic kidney disease with heart failure and with stage 5 chronic kidney disease, or end stage renal disease; Z99.2 Dependence on renal dialysis; I50.9 Heart failure, unspecified; E11.22 Type 2 diabetes mellitus with diabetic chronic kidney disease; N18.6 End stage renal disease; Z79.4 Long term (current) use of insulin; E78.00 Pure hypercholesterolemia, unspecified; E03.9 Hypothyroidism, unspecified; Z79.82 Long term (current) use of aspirin; Z79.899 Other long term (current) drug therapy; Z86.73 Personal history of transient ischemic attack (TIA), and cerebral infarction without residual deficits; Z87.891 Personal history of nicotine dependence
CPT/HCPCS: 99283

== ENCOUNTER 2022-09-19 10:41 | Emergency (ER) | payer MEDICARE, MEDICAID, SELFPAY ==
[2022-09-19 10:42] VITALS: BP 161/59; PULSE 109; RESP 18; TEMP 36; O2SAT 100; BMI 27.2
--- NOTE | 2022-09-19 10:58 | EX.ED.DYSGE1 ---
HPI History of Present Illness Chief Complaint: Flank Pain Narrative Narrative: 57-year-old female with end-stage renal disease on dialysis Monday, Monday, Monday presenting with left flank pain. Onset was this morning. She presents after having full dialysis today. She states it feels like previous kidney stones. She states she has not had a kidney stone since the . Patient reports that she does not make very much urine and sometimes it will take all day. She does make urine. She denies dysuria or hematuria. Patient states the previous tonsil passed on their own. Patient expresses that she is a little bit nauseous with the flank pain. She is not had a fever. She denies constipation or diarrhea. [facility] Medical History Acid reflux Anxiety Congestive heart failure (CHF) Constipation Depression Diabetes Dialysis patient Former smoker Heart disease Hemorrhoids Hypertension Hypothyroidism Kidney disease Problem with dialysis access Thyroid disease TIA (transient ischemic attack) Wears hearing aid in both ears Home Medications aspirin 81 mg tablet,delayed release (Adult Low Dose Aspirin) 81 mg PO DAILY heart health 08/14/18 [History Last Taken 01/10/21] atorvastatin 40 mg tablet 40 mg PO QHS cholesterol 08/14/18 [History Last Taken 01/10/21] clonidine HCl 0.3 mg tablet 0.3 mg PO QHS blood pressure 08/14/18 [History Last Taken 01/10/21] levothyroxine 112 mcg capsule 112 mcg PO DAILY thyroid 08/14/18 [History Last Taken 01/11/21] vitamin B complex-vitamin C-folic acid 0.8 mg tablet (Bethanie-Petey) 1 tab PO DAILY vitamin 01/11/21 [History Last Taken 01/10/21] insulin aspart U-100 100 unit/mL (3 mL) subcutaneous pen (Novolog FlexPen U-100 Insulin aspart) 8 unit (0.08 mL) subcut TIDCM insulin #0 mL 01/12/21 [Rx Last Taken 01/10/21] insulin detemir U-100 100 unit/mL (3 mL) subcutaneous pen 48 unit (0.48 mL) subcut QHS insulin #0 mL 01/12/21 [Rx Last Taken 01/10/21] hydrocodone-acetaminophen 5-325mg 5mg-325mg 1 tab PO Q4H PRN PRN Pain 2 days #10 TABLETS 06/21/22 [Rx Last Taken Unknown] levofloxacin 750 mg tablet 750 mg PO DAILY #10 tabs 06/21/22 [Rx Last Taken Unknown] ciprofloxacin HCl 500 mg tablet (Cipro) 500 mg PO BID 7 days #14 tabs 09/19/22 [Rx Last Taken Unknown] Allergy/AdvReac Type Severity Reaction Status Date / Time chlorhexidine Allergy Mild rash Verified 09/19/22 10:42 codeine Allergy Unknown Unknown Verified 09/19/22 10:42 latex Allergy Unknown Unknown Verified 09/19/22 10:42 Penicillins Allergy Unknown Unknown Verified 09/19/22 10:42 Family History Brother Kidney disease Mother Cancer lung cancer Father Colon cancer Surgical History History of bowel resection History of partial hysterectomy Hx of appendectomy Hx of arteriovenostomy for renal dialysis Hx of bilateral breast reduction surgery Hx of cholecystectomy Social History Smoking Status: Former smoker alcohol intake: never substance use type: does not use caffeine: Yes what type of physical activity do you participate in: none frequency: does not exercise ROS ROS ED Constitutional Constitutional ED: Denies chills or fever(s) Eyes Eyes: Denies change in vision or diplopia ENT ENT ED: Denies rhinorrhea or sore throat Cardiovascular Cardiovascular: Denies chest pain or palpitations Respiratory/Chest Respiratory/Chest: Denies cough or dyspnea Gastrointestinal Gastrointestinal: Reports abdominal pain, nausea and vomiting Genitourinary Genitourinary ED: Denies dysuria or hematuria Musculoskeletal Musculoskeletal: Reports back pain Integumentary Denies abscess or Abrasions Neurologic Neurologic: Denies headache(s) or paresthesias Psychiatric Psychiatric: Denies anxiety or depression EXAM Physical Exam Const Vital Signs: 09/19/22 10:42 09/19/22 11:21 Temperature 96.8 F L Temperature Source Temporal Pulse Rate 109 H Respiratory Rate 18 Respiratory Effort Normal Non-Labored Respiratory Pattern Normal Blood Pressure 161/59 H Blood Pressure Mean 93 Pulse Ox 100 Oxygen Delivery Method Room Air Positive well nourished General Appearance ED: NAD; Negative for pallor HEENT Reports moist mucous membranes Eyes PERRL and EOMs intact bilaterally Neck no lymphadenopathy Resp normal respiratory effort and clear to auscultation bilaterally Auscultation: Negative for rales, rhonchi or wheezes Cardio regular rate and regular rhythm GI normal to inspection, nondistended, normoactive bowel sounds Back/Spine General Back: CVA tenderness left Neuro oriented x3 and CN's II-XII intact bilaterally Sensorium / Orientation: alert Psych mental status grossly normal Skin no rashes or lesions noted General Skin Exam: Negative for jaundice or pallor MDM MDM MDM Narrative Medical decision making narrative: Patient presenting with symptoms of kidney stone. She does have CVA tenderness on the left. She completed dialysis today. She was medicated with morphine and Zofran. Patient was not given IV fluids due to her history of end-stage renal disease on dialysis. Patient CBC was obtained another white blood cell count or anemia. Patient's white blood cell count is 4.2. Hemoglobin is stable at 10.8. Patient has chronic kidney disease. She denies black or bloody stools. Creatinine is 3.52 which is what is expected in renal patient. Electrolytes unremarkable with exception of potassium 3.4. Leukos elevated at 166 without anion gap. Urinalysis negative for nitrites but shows 500 leukocyte esterase 0-5 red blood cells, 25-50 white blood cells and 2+ bacteria. There is 5-10 squamous epithelial cells, however given her symptoms with CVA tenderness I will treat her as pyelonephritis. I did obtain a flank study which does not show evidence of kidney stone but does show to nondilated area of hernia. Patient knows of this. She is not having pain in this location. Patient given first dose of Cipro in the ER due to penicillin allergy which she states she gets hives from. Patient put on Cipro as an outpatient. She has an outpatient urologist she can follow-up with. Return precautions discussed. Impression: 1. Left-sided pyelonephritis 2. History of end-stage renal disease on dialysis Lab Data Labs: Laboratory Results - last 24 hr 09/19/22 09/19/22 09/19/22 11:20 11:20 11:20 WBC 4.2 L RBC 3.40 L Hgb 10.8 L Hct 33.8 L MCV 99.4 H MCH 31.8 MCHC 32.0 RDW Std Deviation 46.0 H RDW Coeff of Alvina 12.6 Plt Count 182 MPV 8.8 Immature Gran % (Auto) 1.200 H Neut % (Auto) 62.9 Lymph % (Auto) 24.1 [place] % (Auto) 8.5 Eos % (Auto) 2.1 Baso % (Auto) 1.2 H Absolute Neuts (auto) 2.7 Absolute Lymphs (auto) 1.02 Nucleated RBC % 0 Sodium 139 Potassium 3.4 L Chloride 98 Carbon Dioxide 34.0 H Anion Gap 7 BUN 14 Creatinine 3.52 H Estim Creat Clear Calc 13.78 Est GFR (MDRD) Af Amer 17 L Est GFR (MDRD) Non-Af 14 L BUN/Creatinine Ratio 4.0 L Glucose 166 H Calcium 9.1 Urine Color Yellow Urine Clarity Sl. Cloudy Urine pH 8.0 Ur Specific [place] 1.010 Urine Protein 500 H Urine Glucose (UA) 100 H Urine Ketones 5 H Urine Occult Blood 50 H Urine Nitrite Negative Urine Bilirubin 3 H Urine Urobilinogen Normal Ur Leukocyte Esterase 500 H Urine RBC 0-5 SEEN Urine WBC 25-50 SEEN Ur Squamous Epith Cells 5-10 SEEN Urine Bacteria 2+ Urine Mucus 0 SEEN Radiography Diagnostic Testing: Clinical Impression(s) from Imaging Studies Abdomen/Pelvis CT 09/19/22 11:23 IMPRESSION: Extensive atherosclerotic calcific plaques of the aorta and major visceral branches extending into both kidneys. No evidence of ureteral obstruction at this time. Left paramedian hernia containing nondilated small bowel loops. A small right paramedian hernia is also seen containing a portion of the transverse colon. Electronically Signed: Ravi Gay MD at 11:59 EST , Discharge Plan Triage Chief Complaint: Flank Pain ED Provider: Warren Torrez Dx/Rx/DC Orders Instructions: ED Pyelonephritis, Female (Adult) Prescriptions: New ciprofloxacin HCl [Cipro] 500 mg tablet 500 mg PO BID 7 Days Qty: 14 0RF No Action aspirin [Adult Low Dose Aspirin] 81 mg tablet,delayed release (DR/EC) 81 mg PO DAILY clonidine HCl 0.3 mg tablet 0.3 mg tablet 0.3 mg PO QHS levothyroxine 112 mcg capsule 112 mcg capsule 112 mcg PO DAILY atorvastatin 40 mg tablet 40 mg PO QHS Bethanie-Petey 0.8 mg Tablet 1 tab PO DAILY insulin aspart U-100 [Novolog FlexPen U-100 Insulin] 100 unit/mL insulin pen 8 unit SC TIDCM Qty: 0 0RF insulin detemir U-100 100 UNITS/ML insulin pen 48 unit SC QHS Qty: 0 0RF levofloxacin 750 mg tablet 750 mg PO DAILY Qty: 10 0RF hydrocodone-acetaminophen [hydrocodone-acetaminophen] 5-325 mg tablet 1 tab PO Q4H PRN PRN (Reason: Pain) 2 Days Qty: 10 0RF Primary Care Provider: Maldonado Denny Referrals: Maldonado Denny MD [Primary Care Provider] - Disposition Disposition: Home, Self Care
[2022-09-19] MEDS: Ondansetron 4 MG/2 ML Vial IV (11:19)
[2022-09-19] MEDS: Morphine 4 MG/ML Syringe IV (11:20)
--- NOTE | 2022-09-19 11:23 | CT_ITS ---
STUDY: CT ABDOMEN AND PELVIS WITHOUT CONTRAST REASON FOR EXAM: Female, 57 years old. Left flank pain. Chronic kidney disease. Patient is on dialysis. History of kidney stones. RADIATION DOSAGE (If Supplied By Facility): CTDIvol = ( 6.22 ) mGy, DLP = ( 293.77 ) mGycm TECHNIQUE: Transaxial images were obtained from the dome of the diaphragm to the symphysis pubis without oral contrast, and without intravenous contrast. Sagittal and coronal images were reconstructed. Individualized dose optimization techniques were used for this CT. COMPARISON: None. FINDINGS: The visualized lung bases are unremarkable. Coronary artery calcification. Mitral valve annulus calcification. Minimal anterior pericardial thickening. Normal liver. There are surgical clips in the gallbladder fossa consistent with a prior cholecystectomy. Normal spleen. Normal pancreas. Normal bilateral adrenal glands. There is atrophy of both kidneys. Extensive intrarenal arterial calcification. No definite kidney stone is seen. Normal visualized stomach. Normal small intestine. There are scattered colonic diverticula consistent with diverticulosis. Moderate amount of fecal material is seen in the colon. The appendix is visualized and appears normal. There is diffuse atherosclerotic calcification of the abdominal aorta and its major visceral branches, without a demonstrated aneurysm. Normal inferior vena cava. Normal retroperitoneum. The urinary bladder is not distended. Diffuse bladder wall thickening. Left paramedian ventral hernia containing nondilated small bowel loops. The neck of the hernia measures 3.4 cm. Small right paramedian ventral hernia containing a portion of the transverse colon. Mild disc space narrowing at the L5-S1 level. CT/Abdomen/Pelvis without Cont IMPRESSION: Extensive atherosclerotic calcific plaques of the aorta and major visceral branches extending into both kidneys. No evidence of ureteral obstruction at this time. Left paramedian hernia containing nondilated small bowel loops. A small right paramedian hernia is also seen containing a portion of the transverse colon. Electronically Signed: Ravi Gay MD at 11:59 EST ,
[2022-09-19 11:29] LABS: Mucous, Urine 0 SEEN /hpf (<or=2+)
[2022-09-19 11:34] LABS: Color, Urine Yellow (Yellow); Glucose, Dipstick 100 mg/dl (Normal); Ketone-Dipstick 5 mg/dl (Negative); Leukocyte Esterase-Dipstick 500 /ul (Negative); Nitrite-Dipstick Negative (Negative); Occult Blood-Urine 50 /ul (Negative); Protein-Dipstick 500 mg/dl (Negative); Urine Clarity Sl. Cloudy (Clear); Urine Urobilinogen Normal (Normal)
[2022-09-19 11:36] LABS: Absolute Lymphocyte Count 1.02 X10^3/uL (0.83-4.51); Absolute Neutrophil Count 2.7 X10^3/uL (2.0-7.7); Basophil# 0.05 X10^3/uL; Basophil% 1.2 % (0-1); Eosinophil# 0.09 X10^3/uL; Eosinophils% 2.1 % (0-5); Hematocrit 33.8 % (37-47); Hemoglobin 10.8 g/dL (12.0-15.0); Lymphocyte # 1.02 X10^3/ul (0.83-4.51); Lymphocyte % 24.1 % (19-41); Mean Corpuscular Hgb 31.8 pg (27.0-32.0); Mean Corpuscular Volume 99.4 fL (81-99); Mean Platelet Vol. 8.8 fl (6.2-12.0); Monocyte# 0.36 X10^3/uL; Monocyte% 8.5 % (0-10); NRBC Flagged by Analyzer 0 % (0-5); Neutrophil # 2.67 X10^3/uL (2.7-7.7); Neutrophil % 62.9 % (47-70); Platelet Count 182 K/mm3 (150-450); RBC Distribution Width CV 12.6 % (11.6-14.6); White Blood Count 4.2 K/mm3 (4.4-11.0)
[2022-09-19 11:45] LABS: Urine Bilirubin Dipstick 3 mg/dL (Negative)
[2022-09-19 11:46] LABS: Anion Gap 7 (5-15); BUN 14 mg/dL (7-18); Bacteria 2+ /hpf (None Seen); Calcium,Total 9.1 mg/dL (8.5-10.1); Chloride 98 mmol/L (98-107); Creatinine, Serum 3.52 mg/dL (0.55-1.02); EST Glomerular Filtration Rate 14 mL/min (>60); Est Glom Filt Rate - Afr Amer 17 mL/min (>60); Estimated Creatinine Clearance 13.78 ml/min; Glucose 166 mg/dL (74-106); Potassium 3.4 mmol/L (3.5-5.1); Red Blood Cells-Urine 0-5 SEEN /hpf (0-5); Sodium Level 139 mmol/L (136-145); Squamous Epithelial Cells - UA 5-10 SEEN /hpf (5-10); White Blood Cells 25-50 SEEN /hpf (0-5)
[2022-09-19 13:58] VITALS: BP 136/59; PULSE 71; RESP 16; O2SAT 100
[2022-09-19] MEDS: Ciprofloxacin 500 MG Tablet PO (14:02)
== END 2022-09-19 14:02 | disposition home or self-care (01) ==
PROVIDERS: Emergency Provider Student in an Organized Health Care Education/Training Program; PCP Internal Medicine; Visit Provider Student in an Organized Health Care Education/Training Program
DX: N12 Tubulo-interstitial nephritis, not specified as acute or chronic (principal); Z99.2 Dependence on renal dialysis; N18.6 End stage renal disease; Z86.73 Personal history of transient ischemic attack (TIA), and cerebral infarction without residual deficits; Z87.891 Personal history of nicotine dependence
CPT/HCPCS: 74176; 80048; 81001; 85025; 96374; 96375; 99282; J2405

== ENCOUNTER → 2023-03-27 | Outpatient (CLI) | payer MEDICARE, SELFPAY ==
--- NOTE | 2023-03-27 11:16 | CDU_ITS ---
Reason For Study: Occular ischemia Rt. Velocities/BP Lt. Velocities/BP Prox CCA 71.1/12.6 cm/sec. Prox CCA 75.1/10.2 cm/sec. Mid CCA 65.5/13.5 cm/sec. Mid CCA 64.1/12.4 cm/sec. Dist CCA 57.9/14.5 cm/sec. Dist CCA 56.4/12.4 cm/sec. Prox ICA 81.7/19 cm/sec. Prox ICA 98.6/17.6 cm/sec. Mid ICA 86.1/24.5 cm/sec. Mid ICA 113.8/22.5 cm/sec. Dist ICA 117.4/22.5 cm/sec. Dist ICA 110.1/26.1 cm/sec. Rt. ICA/CCA = 1.79. Lt. ICA/CCA = 1.78. Prox ECA 121.1 cm/sec. Prox ECA 189.4 cm/sec. Rt. Vert. 69.6/8 cm/sec. Lt. Vert. 57/13.3 cm/sec. Right Extracranial There is intimal thickening but no significant atherosclerotic plaque noted in the right common carotid artery. There is heterogeneous, irregular atherosclerotic plaque noted in the right internal carotid artery. The atherosclerotic plaque causes acoustic shadowing. There is intimal thickening but no significant atherosclerotic plaque noted in the right external carotid artery. Antegrade flow is noted in the right vertebral artery. Left Extracranial There is homogeneous, smooth atherosclerotic plaque noted in the left common carotid artery. There is heterogeneous, irregular atherosclerotic plaque noted in the left internal carotid artery. There is intimal thickening but no significant atherosclerotic plaque noted in the left external carotid artery. Antegrade flow is noted in the left vertebral artery. Procedure Carotid Duplex 17986. This is a Carotid Duplex examination using B-mode, color flow and specral Doppler. Exam performed in department. VL/Carotid Duplex Ultrasound Interpretation Summary Mild calcific plaque with shadowing at the proximal right internal carotid breann ry with less than 50% stenosis Less than 50% stenosis right external carotid artery Irregular calcific plaque with shadowing at the proximal left internal carotid artery with less than 50% stenosis Less than 50% stenosis left external carotid artery Patent and antegrade vertebral arteries bilaterally Ordering Physician: Byron Day Referring Physician: Maldonado Denny M.D. Performed By: Estefani Odom RVT
== END | disposition home or self-care (01) ==
LOC: CVS 11:15
PROVIDERS: PCP Internal Medicine; Referring Provider Ophthalmology; Visit Provider Ophthalmology
DX: H35.82 Retinal ischemia (principal)
CPT/HCPCS: 93880

== ENCOUNTER 2023-05-31 05:15 | Inpatient (IN) | payer MEDICARE, MEDICAID, SELFPAY ==
[2023-05-31] VITALS (20 sets, daily range): BP systolic 105–280; BP diastolic 47–84; PULSE 79–117; RESP 12–18; TEMP 36.2–36.9; O2SAT 95–100; BMI 27.0; BMI 28.3; BMI 28.0
--- NOTE | 2023-05-31 05:58 | CT_ITS ---
STUDY: CT ABDOMEN AND PELVIS WITHOUT CONTRAST REASON FOR EXAM: Female, 58 years old. Abd pain -- ?SBO RADIATION DOSAGE (If Supplied By Facility): CTDIvol = ( 8.97 ) mGy, DLP = ( 437.18 ) mGycm TECHNIQUE: Transaxial images were obtained from the dome of the diaphragm to the symphysis pubis without oral contrast, and without intravenous contrast. Sagittal and coronal images were reconstructed. Individualized dose optimization techniques were used for this CT. COMPARISON: Comparison is made with prior study dated September 19, 2022. FINDINGS: The visualized lung bases are unremarkable. Coronary artery calcification. This calcification of the mitral valve annulus. Normal liver. There are surgical clips in the gallbladder fossa consistent with a prior cholecystectomy. Normal spleen. Normal pancreas. Normal bilateral adrenal glands. Normal right kidney. Normal left kidney. Normal visualized stomach. Moderate to large ventral hernia containing small bowel loops. There is evidence of a dilatation of the distal jejunum secondary to the herniated bowel within the hernia. There are scattered colonic diverticula consistent with diverticulosis. The appendix is visualized and appears normal. There is diffuse atherosclerotic calcification of the abdominal aorta and its major visceral branches, without a demonstrated aneurysm. Normal inferior vena cava. Normal retroperitoneum. Urinary bladder wall thickening although the urinary bladder is not completely filled at this time. There is a moderate size anterior ventral hernia. The neck of the hernia measures 5.3 cm. There are diffuse degenerative changes of the visualized lumbar spine. CT/Abdomen/Pel W ORAL Cont Only IMPRESSION: Moderate to large ventral hernia containing dilated small bowel loops at that level. Early small bowel obstruction should be ruled out. Extensive atherosclerotic calcification of the abdominal aorta and the major visceral branches. Electronically Signed: Ravi Gay MD at 8:20 EDT ,
[2023-05-31] MEDS: Ondansetron 4 MG/2 ML Vial IV (06:09)
[2023-05-31] MEDS: Morphine 4 MG/ML Syringe IV ×3 (06:10→11:14)
[2023-05-31 06:16] LABS: Absolute Lymphocyte Count 1.23 X10^3/uL (0.83-4.51); Basophil# 0.06 X10^3/uL; Basophil% 0.6 % (0-1); Eosinophil# 0.07 X10^3/uL; Eosinophils% 0.7 % (0-5); Hematocrit 34.4 % (37-47); Hemoglobin 11.1 g/dL (12.0-15.0); Lymphocyte # 1.23 X10^3/ul (0.83-4.51); Lymphocyte % 12.3 % (19-41); Mean Corp Hgb Conc 32.3 g/dL (32-36); Mean Corpuscular Volume 99.1 fL (81-99); Mean Platelet Vol. 9.5 fl (6.2-12.0); Monocyte# 0.61 X10^3/uL; Monocyte% 6.1 % (0-10); NRBC Flagged by Analyzer 0 % (0-5); Neutrophil # 7.98 X10^3/uL (2.7-7.7); Platelet Count 203 K/mm3 (150-450); RBC Distribution Width CV 12.3 % (11.6-14.6); RBC Distribution Width SD 44.4 fl (35.1-43.9); Red Blood Count 3.47 M/mm3 (4.2-5.4)
[2023-05-31 06:50] LABS: Anion Gap 7 (5-15); BUN 51 mg/dL (7-18); BUN/Creat Ratio 6.6 RATIO (10-20); Calcium,Total 9.3 mg/dL (8.5-10.1); Chloride 100 mmol/L (98-107); Creatinine, Serum 7.72 mg/dL (0.55-1.02); EST Glomerular Filtration Rate 6 mL/min (>60); Est Glom Filt Rate - Afr Amer 7 mL/min (>60); Estimated Creatinine Clearance 6.49 ml/min; Glucose 167 mg/dL (74-106); Lactic Acid 1.3 mmol/L (0.4-1.9); Potassium 4.6 mmol/L (3.5-5.1); Sodium Level 139 mmol/L (136-145)
--- NOTE | 2023-05-31 07:09 | EX.ED.DYSGE1 ---
HPI History of Present Illness Chief Complaint: Flank Pain Informant: patient and spouse/S.O. Narrative Narrative: Patient is a 58-year-old female with past medical history of type 2 diabetes hypertension and end-stage renal disease on dialysis. She receives dialysis on Monday and Monday. She states that despite dialysis she still will urinate typically once a day. She states that she received dialysis Monday as directed. She reports that Monday night into Monday morning she started noticing pain in the right sided abdomen. She reports that she developed nausea and vomiting with this. She states that she tried uxct-roh-cacifmi medication without any symptom improvement and secondary to the persistent pain skip dialysis this morning and presents to the ER for evaluation. [facility] Medical History Acid reflux Anxiety Congestive heart failure (CHF) Constipation Depression Diabetes Dialysis patient Former smoker Heart disease Hemorrhoids Hypertension Hypothyroidism Kidney disease Problem with dialysis access Thyroid disease TIA (transient ischemic attack) Wears hearing aid in both ears Home Medications aspirin 81 mg tablet,delayed release (Adult Low Dose Aspirin) 81 mg PO DAILY heart health 08/14/18 [History Last Taken 01/10/21] atorvastatin 40 mg tablet 40 mg PO QHS cholesterol 08/14/18 [History Last Taken 01/10/21] clonidine HCl 0.3 mg tablet 0.3 mg PO QHS blood pressure 08/14/18 [History Last Taken 01/10/21] levothyroxine 112 mcg capsule 112 mcg PO DAILY thyroid 08/14/18 [History Last Taken 01/11/21] vitamin B complex-vitamin C-folic acid 0.8 mg tablet (Bethanie-Petey) 1 tab PO DAILY vitamin 01/11/21 [History Last Taken 01/10/21] insulin aspart U-100 100 unit/mL (3 mL) subcutaneous pen (Novolog FlexPen U-100 Insulin aspart) 8 unit (0.08 mL) subcut TIDCM insulin #0 mL 01/12/21 [Rx Last Taken 01/10/21] insulin detemir U-100 100 unit/mL (3 mL) subcutaneous pen 48 unit (0.48 mL) subcut QHS insulin #0 mL 01/12/21 [Rx Last Taken 01/10/21] hydrocodone-acetaminophen 5-325mg 5mg-325mg 1 tab PO Q4H PRN PRN Pain 2 days #10 TABLETS 06/21/22 [Rx Last Taken Unknown] levofloxacin 750 mg tablet 750 mg PO DAILY #10 tabs 06/21/22 [Rx Last Taken Unknown] ciprofloxacin HCl 500 mg tablet (Cipro) 500 mg PO BID 7 days #14 tabs 09/19/22 [Rx Last Taken Unknown] Allergy/AdvReac Type Severity Reaction Status Date / Time chlorhexidine Allergy Mild rash Verified 09/19/22 10:42 codeine Allergy Unknown Unknown Verified 05/31/23 05:18 latex Allergy Unknown Unknown Verified 05/31/23 05:18 Penicillins Allergy Unknown Unknown Verified 05/31/23 05:18 Family History Brother Kidney disease Mother Cancer lung cancer Father Colon cancer Surgical History History of bowel resection History of partial hysterectomy Hx of appendectomy Hx of arteriovenostomy for renal dialysis Hx of bilateral breast reduction surgery Hx of cholecystectomy Social History Smoking Status: Former smoker alcohol intake: never substance use type: does not use caffeine: Yes what type of physical activity do you participate in: none frequency: does not exercise ROS ROS ED Constitutional Constitutional ED: Denies chills or fever(s) ENT ENT ED: Denies sore throat Cardiovascular Cardiovascular: Denies chest pain Respiratory/Chest Respiratory/Chest: Denies cough or dyspnea Gastrointestinal Gastrointestinal: Reports abdominal pain, nausea and vomiting; Denies diarrhea Genitourinary Genitourinary ED: Denies dysuria Musculoskeletal Musculoskeletal: Reports back pain; Denies myalgias Integumentary Denies rash Neurologic Neurologic: Denies headache(s) Hematologic/Lymphatic Hematologic/Lymphatic: Reports easy bleeding and easy bruising EXAM Physical Exam Const Vital Signs: 05/31/23 05:15 Temperature 97.6 F L Temperature Source Oral Pulse Rate 111 H Respiratory Rate 18 Blood Pressure 161/66 H Blood Pressure Mean 97 Pulse Ox 100 Oxygen Delivery Method Room Air Positive well nourished and well developed General Appearance ED: well developed HEENT Reports dry mucous membranes HEENT Narrative: Mucous membranes are dry and tacky without secondary changes to suggest infection Mouth ED: Yes dry mucous membranes Mouth: dry mucous membranes Eyes PERRL and EOMs intact bilaterally General Eye ED: Negative for scleral icterus Neck supple Neck Narrative: No nuchal rigidity or meningeal signs Resp normal respiratory effort and clear to auscultation bilaterally Resp Narrative: Breath sounds are diminished throughout but overall clear to auscultation without signs of respiratory distress Cardio regular rate and regular rhythm GI GI Narrative: Abdomen is slightly distended with hypoactive bowel sounds. There is mild diffuse pain on palpation but greatest along the midepigastric and right mid upper abdominal region. There is slight increased tympany at the site. No voluntary guarding or rigidity. No pulsatile mass Auscultation: hypoactive bowel sounds Extremity normal to inspection Extremity Narrative: There is a fistula present in the right upper arm with palpable thrill and good bruit Neuro oriented x3, CN's II-XII intact bilaterally and no sensory deficits noted Sensorium / Orientation: alert Motor Exam: strength 5/5 throughout Psych mental status grossly normal Skin no rashes or lesions noted Skin Narrative: Skin turgor is increased General Skin Exam: Negative for jaundice MDM MDM MDM Narrative Medical decision making narrative: Patient presented to the ER hypertensive but has a past medical history of this and is otherwise afebrile. She denied any recent trauma or excessive activity prior to the pain beginning. Difficult diagnosis is for incarcerated hernia versus small bowel obstruction versus gastroenteritis versus kidney stone. At this time with the patient's multiple abdominal surgeries in the past and mild distention and the fact she is reporting constipation and minimal passage of flatus obstruction is high in the list. Based on the fact she is on dialysis I like to perform a CT scan with oral contrast only to check for potential obstruction or infectious process. Laboratory studies show no leukocytosis or lactic acidosis and her creatinine is elevated consistent with her history of end-stage renal disease. Otherwise there are no signs of electrolyte abnormality. CT scan is pending and therefore patient will be signed out to the day physician Dr. Eastman pending results. History & Record Review Discussion w/independent historian: Patient and Significant other Lab Data Attestation: I reviewed the patient's lab results. Labs: Laboratory Results - last 24 hr 05/31/23 06:00 WBC 10.0 RBC 3.47 L Hgb 11.1 L Hct 34.4 L MCV 99.1 H MCH 32.0 MCHC 32.3 RDW Std Deviation 44.4 H RDW Coeff of Alvina 12.3 Plt Count 203 MPV 9.5 Immature Gran % (Auto) 0.300 Neut % (Auto) 80.0 H Lymph % (Auto) 12.3 L [place] % (Auto) 6.1 Eos % (Auto) 0.7 Baso % (Auto) 0.6 Absolute Neuts (auto) 8.0 H Absolute Lymphs (auto) 1.23 Nucleated RBC % 0 Sodium 139 Potassium 4.6 Chloride 100 Carbon Dioxide 32.0 Anion Gap 7 BUN 51 H Creatinine 7.72 H* Estim Creat Clear Calc 6.49 Est GFR (MDRD) Af Amer 7 L Est GFR (MDRD) Non-Af 6 L BUN/Creatinine Ratio 6.6 L Glucose 167 H Lactic Acid 1.3 Calcium 9.3 Phosphorus 4.0 Discharge Plan Triage Chief Complaint: Flank Pain ED Provider: Harmeet Rodrigez Dx/Rx/DC Orders Prescriptions: No Action aspirin [Adult Low Dose Aspirin] 81 mg tablet,delayed release (DR/EC) 81 mg PO DAILY clonidine HCl 0.3 mg tablet 0.3 mg tablet 0.3 mg PO QHS levothyroxine 112 mcg capsule 112 mcg capsule 112 mcg PO DAILY atorvastatin 40 mg tablet 40 mg PO QHS Bethanie-Petey 0.8 mg Tablet 1 tab PO DAILY insulin aspart U-100 [Novolog FlexPen U-100 Insulin] 100 unit/mL insulin pen 8 unit SC TIDCM Qty: 0 0RF insulin detemir U-100 100 UNITS/ML insulin pen 48 unit SC QHS Qty: 0 0RF levofloxacin 750 mg tablet 750 mg PO DAILY Qty: 10 0RF hydrocodone-acetaminophen [hydrocodone-acetaminophen] 5-325 mg tablet 1 tab PO Q4H PRN PRN (Reason: Pain) 2 Days Qty: 10 0RF ciprofloxacin HCl [Cipro] 500 mg tablet 500 mg PO BID 7 Days Qty: 14 0RF Primary Care Provider: Maldonado Denny Referrals: Maldonado Denny MD [Primary Care Provider] -
[2023-05-31 07:41] LABS: Mucous, Urine 0 SEEN /hpf (<or=2+)
[2023-05-31 07:44] LABS: Glucose, Dipstick Normal (Normal); Ketone-Dipstick Negative (Negative); Leukocyte Esterase-Dipstick 500 /ul (Negative); Nitrite-Dipstick Negative (Negative); Occult Blood-Urine 150 /ul (Negative); Protein-Dipstick 100 mg/dl (Negative); Urine Urobilinogen Normal (Normal)
[2023-05-31 07:48] LABS: Color, Urine Yellow (Yellow); Urine Bilirubin Dipstick 1 mg/dL (Negative); Urine Clarity Clear (Clear)
[2023-05-31 07:54] LABS: Bacteria 3+ /hpf (None Seen); Red Blood Cells-Urine 5-10 SEEN /hpf (0-5); Squamous Epithelial Cells - UA 0-5 SEEN /hpf (5-10); White Blood Cells 50-100 SEEN /hpf (0-5)
[2023-05-31] MEDS: Propofol 200 MG/20 ML Vial IV BOLUS (10:29)
--- NOTE | 2023-05-31 10:41 | PCM.HP.STD ---
Documented by User: Guillermina CHIN PA-C 05/31/23 11:33 HPI - General General Date of Service: 05/31/23 Chief Complaint: Abdominal pain HPI Narrative GIULIANA BRAVO, is a 58 F who presents with a 5 day history of abdominal pain, nausea, vomiting. Patient states on Monday she started with nausea and had some vomiting with associated right-sided abdominal discomfort. Patient notes she has had constipation since last week and has passed a few bouts of flatus which is not normal for her. She also notes her appetite has decreased also. She thought possibly this was a virus. She notes her symptoms continued over the weekend. Patient noted yesterday they had an appointment at [facility] for liver transplant. She notes they performed an abdominal exam which caused her abdomen to become even more painful. Patient notes she has a known multiple hernias since her colostomy reversal in 2006. Patient notes she has not been evaluated by any surgeon to have her hernias repaired. Patient has a right upper extremity fistula created by Dr. Thomas at [facility]. She dialyzes on Monday, Monday and Monday. Patient's surgical history includes open cholecystectomy in 1979's and open appendectomy in 1989's. 2005, exploratory laparotomy with perforation of bowel and colostomy creation. In 2006, patient had a colostomy takedown by Dr. Thomson at [place]. CT scan of the abdomen demonstrated moderate to large ventral hernia containing dilated small bowel loops. Early small bowel obstruction. [facility] Medical History Acid reflux Anxiety Congestive heart failure (CHF) Constipation Depression Diabetes Dialysis patient Former smoker Heart disease Hemorrhoids Hypertension Hypothyroidism Kidney disease Problem with dialysis access Thyroid disease TIA (transient ischemic attack) Wears hearing aid in both ears Home Medications aspirin 81 mg tablet,delayed release (Adult Low Dose Aspirin) 81 mg PO DAILY heart health 08/14/18 [History Last Taken 05/30/23] atorvastatin 40 mg tablet 40 mg PO QHS CHOLESTEROL 08/14/18 [History Last Taken 05/30/23] vitamin B complex-vitamin C-folic acid 0.8 mg tablet (Bethanie-Petey) 1 tab PO DAILY SUPPLEMENT 01/11/21 [History Last Taken 05/30/23] insulin aspart U-100 100 unit/mL (3 mL) subcutaneous pen (Novolog FlexPen U-100 Insulin aspart) 8 unit (0.08 mL) subcut TIDCM insulin #0 mL 01/12/21 [Rx Last Taken 05/31/23] insulin detemir U-100 100 unit/mL (3 mL) subcutaneous pen 48 unit (0.48 mL) subcut QHS diabetes #0 mL 01/12/21 [Rx Last Taken 05/30/23] amlodipine 5 mg tablet 5 mg PO DAILY BLOOD PRESSURE 05/31/23 [History Last Taken 05/30/23] clonidine HCl 0.3 mg tablet 0.3 mg PO QHS BLOOD PRESSURE 05/31/23 [History Last Taken 05/30/23] levothyroxine 125 mcg tablet 125 mcg PO DAILY THYROID 05/31/23 [History Last Taken 05/31/23] lisinopril 40 mg tablet 40 mg PO DAILY BLOOD PRESSURE 05/31/23 [History Last Taken 05/30/23] sucroferric oxyhydroxide 500 mg chewable tablet (Velphoro) 500 mg PO TID PHOSPHATE BINDER 05/31/23 [History Last Taken Unknown] Allergy/AdvReac Type Severity Reaction Status Date / Time chlorhexidine Allergy Mild rash Verified 09/19/22 10:42 codeine Allergy Unknown Unknown Verified 05/31/23 05:18 latex Allergy Unknown Unknown Verified 05/31/23 05:18 Penicillins Allergy Unknown Unknown Verified 05/31/23 05:18 Family History Brother Kidney disease Mother Cancer lung cancer Father Colon cancer Surgical History History of bowel resection History of partial hysterectomy Hx of appendectomy Hx of arteriovenostomy for renal dialysis Hx of bilateral breast reduction surgery Hx of cholecystectomy Social History Smoking Status: Former smoker alcohol intake: never substance use type: does not use caffeine: Yes what type of physical activity do you participate in: none frequency: does not exercise ROS Constitutional Constitutional: Reports systems reviewed and no addt'l complaints, except as documented Eyes Eyes: Reports systems reviewed and no addt'l complaints, except as documented ENT HEENT: Reports systems reviewed and no addt'l complaints, except as documented Cardiovascular Cardiovascular: Reports systems reviewed and no addt'l complaints, except as documented Respiratory/Chest Respiratory/Chest: Reports systems reviewed and no addt'l complaints, except as documented Gastrointestinal Gastrointestinal: Reports systems reviewed and no addt'l complaints, except as documented Genitourinary Genitourinary: Reports systems reviewed and no addt'l complaints, except as documented Musculoskeletal Musculoskeletal: Reports systems reviewed and no addt'l complaints, except as documented Integumentary Integumentary: Reports systems reviewed and no addt'l complaints, except as documented Neurologic Neurologic: Reports systems reviewed and no addt'l complaints, except as documented Psychiatric Psychiatric: Reports systems reviewed and no addt'l complaints, except as documented Endocrine Endocrinology: Reports systems reviewed and no addt'l complaints, except as documented Hematologic/Lymphatic Hematologic/Lymphatic: Reports systems reviewed and no addt'l complaints, except as documented Allergic/Immunologic Allergic/Immunologic: Reports systems reviewed and no addt'l complaints, except as documented Vital Signs Vital Signs Vital Signs: 05/31/23 05:15 05/31/23 07:15 05/31/23 09:00 Temperature 97.6 F L Temperature Source Oral Pulse Rate 111 H Pulse Rate [1 (Initial Baseline)] Pulse Rate [2] Respiratory Rate 18 18 16 Respiratory Rate [1 (Initial Baseline)] Respiratory Rate [2] Blood Pressure 161/66 H Blood Pressure [1 (Initial Baseline)] Blood Pressure [2] Blood Pressure Mean 97 Pulse Ox 100 Oxygen Delivery Method Room Air Oxygen Delivery Method [1 (Initial Baseline)] Oxygen Delivery Method [2] Oxygen Flow Rate (L/min) 05/31/23 10:25 05/31/23 10:33 Temperature Temperature Source Pulse Rate 90 Pulse Rate [1 (Initial Baseline)] 89 Pulse Rate [2] 79 Respiratory Rate 16 Respiratory Rate [1 (Initial Baseline)] 17 Respiratory Rate [2] 16 Blood Pressure 166/66 H Blood Pressure [1 (Initial Baseline)] 173/65 H Blood Pressure [2] 141/63 H Blood Pressure Mean Pulse Ox 100 Oxygen Delivery Method Oxygen Delivery Method [1 (Initial Baseline)] Nasal Cannula Oxygen Delivery Method [2] Nasal Cannula Oxygen Flow Rate (L/min) 2 Weight Weight: 152 lb 12.485 oz Body Mass Index (BMI) 27.0 Physical Exam Const alert and oriented x3 HEENT normocephalic and head/scalp atraumatic Eyes PERRL Neck full ROM Lymph Lymphatic: no lymphadenopathy noted Resp normal respiratory effort and clear to auscultation bilaterally Cardio regular rate and regular rhythm GI GI Narrative: Abdomen- multiple well-healed incisions in the right upper quadrant, right lower quadrant and the midline of the abdomen. Multiple hernia defects noted. Palpation of the abdomen with questioning of left upper abdominal hernia incarcerated. Pain to palpation of the right side of the abdomen with no palpable hernia. Back/Spine General Back: CVA tenderness right Extremity normal to inspection Extremity Narrative: Right upper extremity fistula noted Skin no rashes or lesions noted Neuro no focal motor deficits and no sensory deficits noted Psych mental status grossly normal and thought process normal Mood & Affect: tearful Results Lab / Micro Data 05/31/23 06:00 05/31/23 06:00 Labs: Laboratory Results - last 24 hr 05/31/23 06:00: WBC 10.0, RBC 3.47 L, Hgb 11.1 L, Hct 34.4 L, MCV 99.1 H, MCH 32.0, MCHC 32.3, RDW Std Deviation 44.4 H, RDW Coeff of [place] 12.3, Plt Count 203, MPV 9.5, Immature Gran % (Auto) 0.300, Neut % (Auto) 80.0 H, Lymph % (Auto) 12.3 L, [place] % (Auto) 6.1, Eos % (Auto) 0.7, Baso % (Auto) 0.6, Absolute Neuts (auto) 8.0 H, Absolute Lymphs (auto) 1.23, Nucleated RBC % 0, Sodium 139, Potassium 4.6, Chloride 100, Carbon Dioxide 32.0, Anion Gap 7, BUN 51 H, Creatinine 7.72 H*, Estim Creat Clear Calc 6.49, Est GFR (MDRD) Af Amer 7 L, Est GFR (MDRD) Non-Af 6 L, BUN/Creatinine Ratio 6.6 L, Glucose 167 H, Lactic Acid 1.3, Calcium 9.3, Phosphorus 4.0 05/31/23 07:36: Urine Color Yellow, Urine Clarity Clear, Urine pH 8.0, Ur Specific [place] 1.010, Urine Protein 100 H, Urine Glucose (UA) Normal, Urine Ketones Negative, Urine Occult Blood 150 H, Urine Nitrite Negative, Urine Bilirubin 1 H, Urine Urobilinogen Normal, Ur Leukocyte Esterase 500 H, Urine RBC 5-10 SEEN, Urine WBC 50-100 SEEN, Ur Squamous Epith Cells 0-5 SEEN, Urine Bacteria 3+, Urine Mucus 0 SEEN Radiology Impression Abdomen CT 05/31/23 05:58 IMPRESSION: Moderate to large ventral hernia containing dilated small bowel loops at that level. Early small bowel obstruction should be ruled out. Extensive atherosclerotic calcification of the abdominal aorta and the major visceral branches. Electronically Signed: Ravi Gay MD at 8:20 EDT , Assessment & Plan Assessment/Plan (1) Incarcerated ventral hernia: PLAN: I am seeing this patient in conjunction with Dr. Romo. She will independently evaluate this patient. Patient has a known history of multiple ventral hernias. Patient's CT scan of the abdomen demonstrated dilated loops of small bowel that are involved in the left upper abdomen associated with the hernia. Patient is having right-sided pain associated with the hernias radiating into her back. Patient notes she continues to be nausea. Patient's hernia was reduced by the ED. Patient however feels that the hernias are not completely reduced. I spoke with Dr. Romo, who would like to reduce the hernia in the left upper quadrant using ultrasound guidance and conscious sedation. If she is not able to reduce the hernia, Dr. Romo will plan to proceed with an exploratory laparotomy with possible bowel resection, possible colostomy creation. If the hernia is able to be reduced, patient may be admitted for observation secondary to continued pain and the possibility that the hernia may become incarcerated again. It has been recommended to the patient that she have an evaluation by a general surgeon at [facility], where she is currently being worked up for a liver transplant. We will re-evaluate patient for possible admission once patient becomes more awake from sedation. Patient and her have had the opportunity to ask and have questions answered. Patient verbally understands and agrees with the plan. Thank you for the opportunity to ask and have questions answered. Charges/Coding Visit Charges OBSV E&M: 67755 Observ/hosp same date L2 Documented by User: Dr. Rayna Romo MD 05/31/23 11:42 [facility] Medical History Acid reflux Anxiety Congestive heart failure (CHF) Constipation Depression Diabetes Dialysis patient Former smoker Heart disease Hemorrhoids Hypertension Hypothyroidism Kidney disease Problem with dialysis access Thyroid disease TIA (transient ischemic attack) Wears hearing aid in both ears Home Medications aspirin 81 mg tablet,delayed release (Adult Low Dose Aspirin) 81 mg PO DAILY heart health 08/14/18 [History Last Taken 05/30/23] atorvastatin 40 mg tablet 40 mg PO QHS CHOLESTEROL 08/14/18 [History Last Taken 05/30/23] vitamin B complex-vitamin C-folic acid 0.8 mg tablet (Bethanie-Petey) 1 tab PO DAILY SUPPLEMENT 01/11/21 [History Last Taken 05/30/23] insulin aspart U-100 100 unit/mL (3 mL) subcutaneous pen (Novolog FlexPen U-100 Insulin aspart) 8 unit (0.08 mL) subcut TIDCM insulin #0 mL 01/12/21 [Rx Last Taken 05/31/23] insulin detemir U-100 100 unit/mL (3 mL) subcutaneous pen 48 unit (0.48 mL) subcut QHS diabetes #0 mL 01/12/21 [Rx Last Taken 05/30/23] amlodipine 5 mg tablet 5 mg PO DAILY BLOOD PRESSURE 05/31/23 [History Last Taken 05/30/23] clonidine HCl 0.3 mg tablet 0.3 mg PO QHS BLOOD PRESSURE 05/31/23 [History Last Taken 05/30/23] levothyroxine 125 mcg tablet 125 mcg PO DAILY THYROID 05/31/23 [History Last Taken 05/31/23] lisinopril 40 mg tablet 40 mg PO DAILY BLOOD PRESSURE 05/31/23 [History Last Taken 05/30/23] sucroferric oxyhydroxide 500 mg chewable tablet (Velphoro) 500 mg PO TID PHOSPHATE BINDER 05/31/23 [History Last Taken Unknown] Allergy/AdvReac Type Severity Reaction Status Date / Time chlorhexidine Allergy Mild rash Verified 09/19/22 10:42 codeine Allergy Unknown Unknown Verified 05/31/23 05:18 latex Allergy Unknown Unknown Verified 05/31/23 05:18 Penicillins Allergy Unknown Unknown Verified 05/31/23 05:18 Family History Brother Kidney disease Mother Cancer lung cancer Father Colon cancer Surgical History History of bowel resection History of partial hysterectomy Hx of appendectomy Hx of arteriovenostomy for renal dialysis Hx of bilateral breast reduction surgery Hx of cholecystectomy Social History Smoking Status: Former smoker alcohol intake: never substance use type: does not use caffeine: Yes what type of physical activity do you participate in: none frequency: does not exercise Results Lab / Micro Data 05/31/23 06:00 05/31/23 06:00 Assessment & Plan Assessment/Plan (1) Incarcerated ventral hernia: PLAN: Plan Agree with Guillermina's note. Prior to conscious sedation did discuss with patient that if unable to reduce may need exploratory laparotomy, possible bowel resection procedure and risk were discussed with patient and her . She had no further questions and consent was signed. Patient is starting the process for a kidney transplant. Would try to avoid any large piece of mesh if possible during surgery due to this. Patient did have conscious sedation by Dr. Eastman in the ER the hernia site appeared to be reduced at that time with use of bedside ultrasound. However patient is still complaining of a lot of abdominal pain after the sedation wore off. We will plan to get another CT without any contrast to take look at the bowel again. Discussed with patient and her she still may need surgery depending on CT as well as pain. Patient does have quite a bit of constipation on her CAT scan as well. Patient is also due for dialysis today. Rayna Romo M.D. Pager: [phone] [facility] [address] [place] [address], [facility], [address] [place] [address] Office: [phone]
--- NOTE | 2023-05-31 11:35 | CT_ITS ---
STUDY: CT ABDOMEN AND PELVIS WITHOUT CONTRAST REASON FOR EXAM: Female, 58 years old. Post reduction of the ventral hernia. RADIATION DOSAGE (If Supplied By Facility): CTDIvol = ( 13.30 ) mGy, DLP = ( 607.02 ) mGycm TECHNIQUE: Transaxial images were obtained from the dome of the diaphragm to the symphysis pubis without oral contrast, and without intravenous contrast. Sagittal and coronal images were reconstructed. Individualized dose optimization techniques were used for this CT. COMPARISON: Comparison is made with prior study done earlier in the day. FINDINGS: Persistent ventral hernia. Dilated small bowel loops are seen within the anterior abdominal hernia. The remainder of the examination is unchanged. CT/Abdomen/Pelvis without Cont IMPRESSION: Persistent anterior abdominal wall hernia with the dilated small bowel loops trapped within the hernia. Electronically Signed: Ravi Gay MD at 12:50 EDT ,
[2023-05-31] MEDS: Cephalexin 250 MG Capsule 500 MG PO (11:51)
--- NOTE | 2023-05-31 12:18 | PCM.PN.HOSP ---
Reason for Visit Reason for Visit: Diagnoses Other and unspecified ventral hernia with obstruction, without gangrene (05/31/23) Subjective Subjective 58-year-old female history of end-stage renal disease on dialysis, type 2 diabetes, hypertension, hypothyroidism who presented to the hospital 05/31/2023 with 5 days of worsening abdominal pain. In the ED she was noted to have incarcerated ventral hernias that were causing a small bowel obstruction on CT scan, initially reduced by the ED physician and surgery consulted, surgery evaluated and under ultrasound it was found that they were again incarcerated and they were reduced under sedation in the ED and patient admitted for further monitoring and possible need for ex lap. Hospitalist consulted for medical management. Patient seen in the ED and reports that aside from her abdominal pain she has not been having any acute problems, passing gas though has been constipated recently, some chronic vision changes, no shortness of breath or chest pain, some chronic lower extremity swelling that is unchanged, came to the hospital today so missed her dialysis but not presently having any symptoms. Upon ROS she did report that while she usually makes urine she has not made much today or yesterday. No other acute complaints Objective Data Objective Data Vital Signs: Vital Signs Temp Pulse Resp BP Pulse Ox O2 Del Method O2 Flow Rate 98.2 F 84 18 154/59 H 100 Room Air 2 05/31/23 11:39 05/31/23 11:39 05/31/23 11:39 05/31/23 11:39 05/31/23 11:39 05/31/23 11:39 05/31/23 10:25 Oxygen Flow Rate (L/min) 2 Oxygen Delivery Method [2] Nasal Cannula Oxygen Delivery Method [1 ( Nasal Cannula Initial Baseline)] Oxygen Delivery Method Room Air Weight: 69.3 kg Body Mass Index (BMI) 27.0 Lab / Micro Data 05/31/23 06:00 05/31/23 06:00 Labs: Laboratory Results - last 24 hr 05/31/23 06:00: WBC 10.0, RBC 3.47 L, Hgb 11.1 L, Hct 34.4 L, MCV 99.1 H, MCH 32.0, MCHC 32.3, RDW Std Deviation 44.4 H, RDW Coeff of [place] 12.3, Plt Count 203, MPV 9.5, Immature Gran % (Auto) 0.300, Neut % (Auto) 80.0 H, Lymph % (Auto) 12.3 L, [place] % (Auto) 6.1, Eos % (Auto) 0.7, Baso % (Auto) 0.6, Absolute Neuts (auto) 8.0 H, Absolute Lymphs (auto) 1.23, Nucleated RBC % 0, Sodium 139, Potassium 4.6, Chloride 100, Carbon Dioxide 32.0, Anion Gap 7, BUN 51 H, Creatinine 7.72 H*, Estim Creat Clear Calc 6.49, Est GFR (MDRD) Af Amer 7 L, Est GFR (MDRD) Non-Af 6 L, BUN/Creatinine Ratio 6.6 L, Glucose 167 H, Lactic Acid 1.3, Calcium 9.3, Phosphorus 4.0 05/31/23 07:36: Urine Color Yellow, Urine Clarity Clear, Urine pH 8.0, Ur Specific [place] 1.010, Urine Protein 100 H, Urine Glucose (UA) Normal, Urine Ketones Negative, Urine Occult Blood 150 H, Urine Nitrite Negative, Urine Bilirubin 1 H, Urine Urobilinogen Normal, Ur Leukocyte Esterase 500 H, Urine RBC 5-10 SEEN, Urine WBC 50-100 SEEN, Ur Squamous Epith Cells 0-5 SEEN, Urine Bacteria 3+, Urine Mucus 0 SEEN Radiography Diagnostic Testing: Radiology Impression Abdomen CT 05/31/23 05:58 IMPRESSION: Moderate to large ventral hernia containing dilated small bowel loops at that level. Early small bowel obstruction should be ruled out. Extensive atherosclerotic calcification of the abdominal aorta and the major visceral branches. Electronically Signed: Ravi Gay MD at 8:20 EDT , Physical Exam Narrative General: Alert, oriented, appears slightly uncomfortable HEENT: Atraumatic, normocephalic Eyes: Anicteric, normal conjunctiva, extraocular movements grossly intact Neck: Supple Respiratory: Clear to auscultation bilaterally, normal respiratory effort Cardiovascular: Regular rate GI: Tender to palpation diffusely, voluntary guarding Extremities: Trace lower extremity pitting edema Musculoskeletal: Moving all extremities Neuro: No overt focal neurological deficits Skin: No rashes appreciated Psych: Cooperative Assessment & Plan Assessment/Plan (1) Incarcerated ventral hernia: (2) ESRD (end stage renal disease) on dialysis: (3) DM type 2 causing ESRD: (4) Thyroid disease: PLAN: Plan #Incarcerated ventral hernias -Reduced in the ED, may still need ex lap, at the discretion of surgery team -Supportive care -Pt on cipro flagyl #End-stage renal disease on dialysis Monday -Missed dialysis today -Nephrology consulted #Abnormal UA -Decreased urination, white blood cells and leuk esterase in urine, urine culture pending, reasonable to proceed with antibiotics pending culture especially given high risk for decompensation acutely if patient has infection that is not treated and pt started on cipro which should be adequate at this time #Type 2 diabetes mellitus -Glucose checks and sliding scale insulin -Patient reports glucoses have been running high so we will need to continue long-acting insulin #Hypothyroidism -Continue Synthroid once her hypertension #Hypertension -Would benefit from continuing blood pressure medications, lisinopril can always be held perioperatively but high concern for rebound hypertension if clonidine held especially given that she is still presently hypertensive #DVT ppx: SCDs Racquel Mai MD Time spent in the patient's overall evaluation,decision-making process, review of diagnostic data, adjustment of management, discussion with other providers, nursing nursing and ancillary staff involved in patient's care documentation, 36 minutes Charges/Coding Visit Charges Office Visits / Consults: 12785 OP Consult L2
--- NOTE | 2023-05-31 13:25 | CON.PCM.RE_ITS ---
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 Dialysis today and MWF (2) Incarcerated ventral hernia: PLAN: GS to manage (3) DM type 2 causing ESRD: PLAN: sugars stable on insulin at home (4) History of bowel resection: (5) Hx of appendectomy: (6) Hypertension: PLAN: stable bp (7) Anxiety: (8) Depression: HPI Consult Data Date of Consult: 05/31/23 HPI Narrative Reason for Consultation: ESRD on HD MWF at 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 Last dialysis was Monday, full treatment. Last meal last night. She is admitted for bowel obstruction. She has a history of bowel obstruction with history of reversal of colostomy. She is due for dialysis today. Consulted for dialysis mgmt. She is being evaluated for k idney transplant at [facility]. History of hypertension, TIA. Denied CAD, CA. Hx CHF. CT scan of the abdomen demonstrated moderate to large ventral hernia containing dilated small bowel loops. Early small bowel obstruction. [facility], [facility] Medical History Acid reflux Anxiety Congestive heart failure (CHF) Constipation Depression Diabetes Dialysis patient Former smoker Heart disease Hemorrhoids Hypertension Hypothyroidism Kidney disease Problem with dialysis access Thyroid disease TIA (transient ischemic attack) Wears hearing aid in both ears Home Medications aspirin 81 mg tablet,delayed release (Adult Low Dose Aspirin) 81 mg PO DAILY heart health 08/14/18 [History Last Taken 05/30/23] atorvastatin 40 mg tablet 40 mg PO QHS CHOLESTEROL 08/14/18 [History Last Taken 05/30/23] vitamin B complex-vitamin C-folic acid 0.8 mg tablet (Bethanie-Petey) 1 tab PO DAILY SUPPLEMENT 01/11/21 [History Last Taken 05/30/23] insulin aspart U-100 100 unit/mL (3 mL) subcutaneous pen (Novolog FlexPen U-100 Insulin aspart) 8 unit (0.08 mL) subcut TIDCM insulin #0 mL 01/12/21 [Rx Last Taken 05/31/23] insulin detemir U-100 100 unit/mL (3 mL) subcutaneous pen 48 unit (0.48 mL) subcut QHS diabetes #0 mL 01/12/21 [Rx Last Taken 05/30/23] amlodipine 5 mg tablet 5 mg PO DAILY BLOOD PRESSURE 05/31/23 [History Last Taken 05/30/23] clonidine HCl 0.3 mg tablet 0.3 mg PO QHS BLOOD PRESSURE 05/31/23 [History Last Taken 05/30/23] levothyroxine 125 mcg tablet 125 mcg PO DAILY THYROID 05/31/23 [History Last Taken 05/31/23] lisinopril 40 mg tablet 40 mg PO DAILY BLOOD PRESSURE 05/31/23 [History Last Taken 05/30/23] sucroferric oxyhydroxide 500 mg chewable tablet (Velphoro) 500 mg PO TID PHOSPHATE BINDER 05/31/23 [History Last Taken Unknown] Allergy/AdvReac Type Severity Reaction Status Date / Time Penicillins Allergy Severe Anaphylaxis Verified 05/31/23 13:00 chlorhexidine Allergy Mild rash Verified 09/19/22 10:42 codeine Allergy Unknown Unknown Verified 05/31/23 13:00 latex Allergy Unknown Unknown Verified 05/31/23 13:00 Family History Brother Kidney disease Mother Cancer lung cancer Father Colon cancer Surgical History History of bowel resection History of partial hysterectomy Hx of appendectomy Hx of arteriovenostomy for renal dialysis Hx of bilateral breast reduction surgery Hx of cholecystectomy Social History Smoking Status: Former smoker alcohol intake: never substance use type: does not use caffeine: Yes what type of physical activity do you participate in: none frequency: does not exercise ROS Eyes Eyes: Denies loss of vision ENT HEENT: Denies nasal congestion Cardiovascular Cardiovascular: Denies syncope Respiratory/Chest Respiratory/Chest: Denies dyspnea on exertion Gastrointestinal Gastrointestinal: Reports abdominal pain, anorexia, diarrhea, dry heaves, nausea and vomiting; Denies hematemesis, hematochezia or melena Genitourinary Genitourinary: Denies dysuria or flank pain Musculoskeletal Musculoskeletal: Denies muscle cramps or myalgias Integumentary Integumentary: Denies rash Neurologic Neurologic: Reports weakness; Denies syncope or tremor(s) Hematologic/Lymphatic Hematologic/Lymphatic: Reports anemia Physical Exam Const Orientation / Consciousness: oriented to person, oriented to place and oriented to time HEENT HEENT Narrative: dry mucosa Resp clear to auscultation bilaterally Cardio regular rate GI GI Narrative: tender to light palpation diffusely, distendied, multiple incisional scars Auscultation: hypoactive bowel sounds Extremity no clubbing, cyanosis or edema Extremity Narrative: AVG right upper arm with thrill and bruit General Extremity: AV fistula Neuro CN's II-XII intact bilaterally and moves all extremities Psych cooperative Lab / Micro Data 05/31/23 06:00 05/31/23 06:00 Labs: Laboratory Results - last 24 hr 05/31/23 06:00: WBC 10.0, RBC 3.47 L, Hgb 11.1 L, Hct 34.4 L, MCV 99.1 H, MCH 32.0, MCHC 32.3, RDW Std Deviation 44.4 H, RDW Coeff of Alvina 12.3, Plt Count 203, MPV 9.5, Immature Gran % (Auto) 0.300, Neut % (Auto) 80.0 H, Lymph % (Auto) 12.3 L, Miller % (Auto) 6.1, Eos % (Auto) 0.7, Baso % (Auto) 0.6, Absolute Neuts (auto) 8.0 H, Absolute Lymphs (auto) 1.23, Nucleated RBC % 0, Sodium 139, Potassium 4.6 , Chloride 100, Carbon Dioxide 32.0, Anion Gap 7, BUN 51 H, Creatinine 7.72 H*, Estim Creat Clear Calc 6.49, Est GFR (MDRD) Af Amer 7 L, Est GFR (MDRD) Non-Af 6 L, BUN/Creatinine Ratio 6.6 L, Glucose 167 H, Lactic Acid 1.3, Calcium 9.3, Phosphorus 4.0 05/31/23 07:36: Urine Color Yellow, Urine Clarity Clear, Urine pH 8.0, Ur Specific [place] 1.010, Urine Protein 100 H, Urine Glucose (UA) Normal, Urine Ketones Negative, Urine Occult Blood 150 H, Urine Nitrite Negative, Urine Jim irubin 1 H, Urine Urobilinogen Normal, Ur Leukocyte Esterase 500 H, Urine RBC 5- 10 SEEN, Urine WBC 50-100 SEEN, Ur Squamous Epith Cells 0-5 SEEN, Urine Bacteria 3+, Urine Mucus 0 SEEN Radiology Impression Abdomen CT 05/31/23 05:58 IMPRESSION: Moderate to large ventral hernia containing dilated small bowel loops at that level. Early small bowel obstruction should be ruled out. Extensive atherosclerotic calcification of the abdominal aorta and the major visceral branches. Electronically Signed: Ravi Gay MD at 8:20 EDT , Abdomen/Pelvis CT 05/31/23 11:35 IMPRESSION: Persistent anterior abdominal wall hernia with the dilated small bowel loops trapped within the hernia. Electronically Signed: Ravi Gay MD at 12:50 EDT ,
[2023-05-31] MEDS: PureFlow B 2K Dialysis Soln 1 BAG 6 BAG PF (14:20)
[2023-05-31] MEDS: 0.9% Normal Saline 1,000 ML IV.SOLN. 1000 ML OPERA.SITE (14:20)
[2023-05-31] MEDS: 0.9% Normal Saline (1000mL) 1,000 ML 30 ML IV ×3 (16:32→23:46)
[2023-05-31] MEDS: Meropenem 1 GM in 0.9% Normal Saline (100mL MB+) 100 ML IV (20:00)
[2023-05-31] MEDS: Bupivacaine Mpf 0.5% 30 ML VIAL (22:25)
--- NOTE | 2023-05-31 22:38 | PCM.OPRPT ---
Report of Operation Date of Procedure: 05/31/23 Pre-Operative Diagnosis: Small bowel obstruction, multiple ventral hernias?incarcerated Post-Operative Diagnosis: Same Surgery/Procedure Performed:: Diagnostic laparoscopy converted to laparotomy, lysis of adhesions, primary repair of small bowel enterotomy Surgeon: Rayna Romo tool and die manager: Milind Stevenson Anesthesiologist: Seth Elliott Special Medications: Meropenem 1 g IV x1 Specimen's removed: None Estimated Blood Loss (mL): 15 cc Fluids Replaced: Per anesthesia Description of Procedure: Patient is brought to operating placed spine on operating table. A timeout was completed verifying correct patient, procedure, site, positioning and special equipment prior began procedure. General anesthesia was induced. Abdomen was prepped draped in usual sterile fashion. Incision was made infraumbilically with a 15 blade scalpel. Hemostats were used to identify the fascia the fascia was elevated and incised under direct visualization. Entry into the abdomen was under direct visualization. The Krause trocar was placed and the abdomen was insufflated to 12 to 15 mmHg. Was noted that there was a inadvertent enterotomy/injury to small bowel. Midline incision was made with the 10 blade scalpel deepened carefully with electrocautery and Metzenbaums due to the multiple ventral hernias. Over an hour was taken for lysis of adhesions. Previously placed Prolene for the midline incision was adherent to multiple loops of small bowel. The small bowel enterotomy site was oversewn with a running 3-0 Vicryl and then Lembert sutures of 3-0 silk sutures. After the lysed adhesions were noted to be dilated portion of small bowel to a more decompressed appeared to be the area of transition. Additional small bowel was freed from underneath the midline incisional/ventral hernias. The entire small bowel was not freed as it was also densely adherent to bilateral lateral sides and in the pelvis. Small bowel contents were able to be milked distally without issues. Due to the enterotomy mesh was not placed. Abdomen was irrigated with saline. The fascial defects were oversewn with 1 Prolene [id number] sutures. The most superior ventral hernia was not dealt with due to only containing colon and not in the area of concern in her require extending the incision more superior. Incision was closed with multiple 1 Prolene [id number] sutures. Wound was irrigated skin was closed with skin noel. 4 x 4 gauze and ABD pad and tape were used to dress the incision and abdominal binder placed. Patient was extubated and taken to the postanesthesia care unit in stable condition. Complications Inadvertent small bowel enterotomy due to dense adhesions
[2023-05-31 23:41] LABS: Bedside Glucose 171 mg/dL (74-106)
[2023-06-01] VITALS (17 sets, daily range): BP systolic 49–280; BP diastolic 40–57; PULSE 92–121; RESP 12–18; TEMP 36.3–37.7; O2SAT 92–100; BMI 28.0; BMI 27.2
[2023-06-01 02:32] LABS: Bedside Glucose 216 mg/dL (74-106)
[2023-06-01] MEDS: Insulin Glargine-YFGN 100 UNIT/ML Pen 8 UNIT SC (02:32)
[2023-06-01] MEDS: Ondansetron 4 MG/2 ML Vial IV ×2 (02:38→14:07)
[2023-06-01] MEDS: Morphine 4 MG/ML Syringe IV ×2 (02:39→07:29)
[2023-06-01] MEDS: 0.9% Saline Lock 10 ML Syringe IV ×2 (02:41→12:12)
[2023-06-01] MEDS: Levothyroxine 125 MCG Tablet PO (04:23)
[2023-06-01 07:31] LABS: Absolute Lymphocyte Count 0.68 X10^3/uL (0.83-4.51); Absolute Neutrophil Count 8.8 X10^3/uL (2.0-7.7); Basophil# 0.05 X10^3/uL; Basophil% 0.5 % (0-1); Hematocrit 29.8 % (37-47); Hemoglobin 9.3 g/dL (12.0-15.0); Lymphocyte # 0.68 X10^3/ul (0.83-4.51); Lymphocyte % 6.7 % (19-41); Mean Corp Hgb Conc 31.2 g/dL (32-36); Mean Corpuscular Hgb 31.8 pg (27.0-32.0); Mean Corpuscular Volume 102.1 fL (81-99); Mean Platelet Vol. 9.7 fl (6.2-12.0); Monocyte% 6.9 % (0-10); NRBC Flagged by Analyzer 0 % (0-5); Neutrophil # 8.76 X10^3/uL (2.7-7.7); Neutrophil % 85.7 % (47-70); Platelet Count 169 K/mm3 (150-450); RBC Distribution Width CV 12.5 % (11.6-14.6); RBC Distribution Width SD 46.5 fl (35.1-43.9); Red Blood Count 2.92 M/mm3 (4.2-5.4); White Blood Count 10.2 K/mm3 (4.4-11.0)
[2023-06-01 07:59] LABS: Anion Gap 7 (5-15); BUN 43 mg/dL (7-18); BUN/Creat Ratio 6.4 RATIO (10-20); Chloride 104 mmol/L (98-107); Creatinine, Serum 6.72 mg/dL (0.55-1.02); EST Glomerular Filtration Rate 7 mL/min (>60); Est Glom Filt Rate - Afr Amer 8 mL/min (>60); Estimated Creatinine Clearance 7.46 ml/min; Glucose 236 mg/dL (74-106); Potassium 5.6 mmol/L (3.5-5.1); Sodium Level 136 mmol/L (136-145)
--- NOTE | 2023-06-01 08:34 | PCM.PN.REN ---
Subjective Subjective complains of incisional pain. +flatus, no nausea, vomiting. Dialysis yeterday. K elevated at 5.6 today Objective Data Objective Data Vital Signs: Vital Signs Temp Pulse Resp BP Pulse Ox O2 Del Method O2 Flow Rate 99.4 F H 92 12 139/49 H 100 Nasal Cannula 2.5 06/01/23 04:06/01/23 04:06/01/23 04:06/01/23 04:06/01/23 04:06/01/23 04:06/01/23 04:09 Oxygen Flow Rate (L/min) 2.5 Oxygen Delivery Method [2] Nasal Cannula Oxygen Delivery Method [1 ( Nasal Cannula Initial Baseline)] Oxygen Delivery Method Nasal Cannula Weight: 71.9 kg Body Mass Index (BMI) 28.0 Intake & Output: Intake and Output for Last 24 Hours 05/30/23 05/31/23 06/01/23 23:59 23:59 23:59 Intake Total 2121.5 / 2121.5 Output Total 500 / 500 Balance 1621.5 / 1621.5 Lab / Micro Data 06/01/23 06:14 06/01/23 12:00 Labs: Laboratory Results - last 24 hr 05/31/23 23:19: POC Glucose 171 H 06/01/23 02:11: POC Glucose 216 H 06/01/23 06:14: WBC 10.2, RBC 2.92 L, Hgb 9.3 L, Hct 29.8 L, MCV 102.1 H, MCH 31.8, MCHC 31.2 L, RDW Std Deviation 46.5 H, RDW Coeff of Alvina 12.5, Plt Count 169, MPV 9.7, Immature Gran % (Auto) 0.200, Neut % (Auto) 85.7 H, Lymph % (Auto) 6.7 L, [place] % (Auto) 6.9, Eos % (Auto) 0.0, Baso % (Auto) 0.5, Absolute Neuts (auto) 8.8 H, Absolute Lymphs (auto) 0.68 L, Nucleated RBC % 0, Sodium 136, Potassium 5.6 H, Chloride 104, Carbon Dioxide 25.0, Anion Gap 7, BUN 43 H, Creatinine 6.72 H, Estim Creat Clear Calc 7.46, Est GFR (MDRD) Af Amer 8 L, Est GFR (MDRD) Non-Af 7 L, BUN/Creatinine Ratio 6.4 L, Glucose 236 H, Calcium 8.0 L Radiography Diagnostic Testing: Radiology Impression Abdomen CT 05/31/23 05:58 IMPRESSION: Moderate to large ventral hernia containing dilated small bowel loops at that level. Early small bowel obstruction should be ruled out. Extensive atherosclerotic calcification of the abdominal aorta and the major visceral branches. Electronically Signed: Ravi Gay MD at 8:20 EDT , Abdomen/Pelvis CT 05/31/23 11:35 IMPRESSION: Persistent anterior abdominal wall hernia with the dilated small bowel loops trapped within the hernia. 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 Dialysis today for hyperkalemia, MWF schedule as outpt (2) Incarcerated ventral hernia: PLAN: s/p laparotomy, RADHA (3) DM type 2 causing ESRD: PLAN: sugars stable on insulin at home (4) Hypertension: PLAN: stable bp (5) Hyperkalemia: PLAN: dialysis today
[2023-06-01] MEDS: Insulin Lispro 100 UNIT/ML INSULN.PEN 8 UNIT SC ×2 (08:35→15:16)
--- NOTE | 2023-06-01 08:36 | PN.SURG_ITS ---
Subjective Subjective Patient reports a lot of flatus states her abdomen is sore but different Pain than previous. Objective Data Objective Data Vital Signs: Vital Signs Temp Pulse Resp BP Pulse Ox O2 Del Method O2 Flow Rate 99.4 F H 92 12 139/49 H 100 Nasal Cannula 2.5 06/01/23 04:06/01/23 04:06/01/23 04:06/01/23 04:06/01/23 04:06/01/23 04:06/01/23 04:09 Oxygen Flow Rate (L/min) 2.5 Oxygen Delivery Method [2] Nasal Cannula Oxygen Delivery Method [1 ( Nasal Cannula Initial Baseline)] Oxygen Delivery Method Nasal Cannula Weight: 158 lb 8.198 oz Body Mass Index (BMI) 28.0 Intake & Output: Intake and Output for Last 24 Hours 05/30/23 05/31/23 06/01/23 23:59 23:59 23:59 Intake Total 2121.5 / 2121.5 Output Total 500 / 500 Balance 1621.5 / 1621.5 Lab / Micro Data 06/01/23 06:14 06/01/23 06:14 Labs: Laboratory Results - last 24 hr 05/31/23 23:19: POC Glucose 171 H 06/01/23 02:11: POC Glucose 216 H 06/01/23 06:14: WBC 10.2, RBC 2.92 L, Hgb 9.3 L, Hct 29.8 L, MCV 102.1 H, MCH 31.8, MCHC 31.2 L, RDW Std Deviation 46.5 H, RDW Coeff of Alvina 12.5, Plt Count 169, MPV 9.7, Immature Gran % (Auto) 0.200, Neut % (Auto) 85.7 H, Lymph % (Auto) 6.7 L, [place] % (Auto) 6.9, Eos % (Auto) 0.0, Baso % (Auto) 0.5, Absolute Neuts (auto) 8.8 H, Absolute Lymphs (auto) 0.68 L, Nucleated RBC % 0, Sodium 136, Potassium 5.6 H, Chloride 104, Carbon Dioxide 25.0, Anion Gap 7, BUN 43 H, Creatinine 6.72 H, Estim Creat Clear Calc 7.46, Est GFR (MDRD) Af Amer 8 L, Est GFR (MDRD) Non-Af 7 L, BUN/Creatinine Ratio 6.4 L, Glucose 236 H, Calcium 8.0 L Radiography Diagnostic Testing: Radiology Impression Abdomen CT 05/31/23 05:58 IMPRESSION: Moderate to large ventral hernia containing dilated small bowel loops at that level. Early small bowel obstruction should be ruled out. Extensive atherosclerotic calcification of the abdominal aorta and the major visceral branches. Electronically Signed: Ravi Gay MD at 8:20 EDT , Abdomen/Pelvis CT 05/31/23 11:35 IMPRESSION: Persistent anterior abdominal wall hernia with the dilated small bowel loops trapped within the hernia. Electronically Signed: Ravi Gay MD at 12:50 EDT , Physical Exam Const oriented x3 and no apparent distress Resp normal respiratory effort Cardio regular rate GI soft to palpation GI Narrative: Tender over midline, incision dressed clean dry and intact and abdominal binder in place. Extremity Extremity Narrative: Right upper extremity fistula Assessment & Plan Assessment/Plan (1) S/P laparotomy with lysis of adhesions: PLAN: Patient had multiple ventral hernias, one was incarcerated bowel. (2) Incarcerated incisional hernia: (3) UTI (urinary tract infection): (4) DM type 2 causing ESRD: (5) ESRD (end stage renal disease) on dialysis: PLAN: Plan Okay for sips as patient is having flatus --when she had a bowel movement will advance to clears. Continue abdominal binder as patient is at high risk for hernia as unable to place mesh due to inadvertent small bowel enterotomy during surgery due to adhesions Appreciate medicine's assistance with diabetes and nephrology with dialysis. Rayna Romo M.D. Pager: [phone] [facility] [address] [place] [address], [facility], [address] [place] [address] Office: [phone]
[2023-06-01 08:46] LABS: Bedside Glucose 204 mg/dL (74-106)
--- NOTE | 2023-06-01 08:52 | PCM.PN.HOSP ---
Reason for Visit Reason for Visit: Diagnoses Disorder of thyroid, unspecified (05/31/23) Type 2 diabetes mellitus with diabetic chronic kidney disease (05/31/23) Other and unspecified ventral hernia with obstruction, without gangrene (05/31/23) End stage renal disease (05/31/23) Dependence on renal dialysis (05/31/23) Subjective Subjective Patient feeling better today overall though still sore, no other acute complaints Objective Data Objective Data Vital Signs: Vital Signs Temp Pulse Resp BP Pulse Ox O2 Del Method O2 Flow Rate 98.4 F 98 17 149/52 H 96 Room Air 2.5 06/01/23 08:09 06/01/23 08:09 06/01/23 08:09 06/01/23 08:09 06/01/23 08:09 06/01/23 08:09 06/01/23 04:09 Oxygen Flow Rate (L/min) 2.5 Oxygen Delivery Method [2] Nasal Cannula Oxygen Delivery Method [1 ( Nasal Cannula Initial Baseline)] Oxygen Delivery Method Room Air Weight: 71.9 kg Body Mass Index (BMI) 28.0 Intake & Output: Intake and Output for Last 24 Hours 05/30/23 05/31/23 06/01/23 23:59 23:59 23:59 Intake Total 2121.5 / 2121.5 Output Total 500 / 500 Balance 1621.5 / 1621.5 Lab / Micro Data 06/01/23 06:14 06/01/23 12:00 Labs: Laboratory Results - last 24 hr 05/31/23 23:19: POC Glucose 171 H 06/01/23 02:11: POC Glucose 216 H 06/01/23 06:14: WBC 10.2, RBC 2.92 L, Hgb 9.3 L, Hct 29.8 L, MCV 102.1 H, MCH 31.8, MCHC 31.2 L, RDW Std Deviation 46.5 H, RDW Coeff of Alvina 12.5, Plt Count 169, MPV 9.7, Immature Gran % (Auto) 0.200, Neut % (Auto) 85.7 H, Lymph % (Auto) 6.7 L, [place] % (Auto) 6.9, Eos % (Auto) 0.0, Baso % (Auto) 0.5, Absolute Neuts (auto) 8.8 H, Absolute Lymphs (auto) 0.68 L, Nucleated RBC % 0, Sodium 136, Potassium 5.6 H, Chloride 104, Carbon Dioxide 25.0, Anion Gap 7, BUN 43 H, Creatinine 6.72 H, Estim Creat Clear Calc 7.46, Est GFR (MDRD) Af Amer 8 L, Est GFR (MDRD) Non-Af 7 L, BUN/Creatinine Ratio 6.4 L, Glucose 236 H, Calcium 8.0 L 06/01/23 08:29: POC Glucose 204 H Radiography Diagnostic Testing: Radiology Impression Abdomen CT 05/31/23 05:58 IMPRESSION: Moderate to large ventral hernia containing dilated small bowel loops at that level. Early small bowel obstruction should be ruled out. Extensive atherosclerotic calcification of the abdominal aorta and the major visceral branches. Electronically Signed: Ravi Gay MD at 8:20 EDT , Abdomen/Pelvis CT 05/31/23 11:35 IMPRESSION: Persistent anterior abdominal wall hernia with the dilated small bowel loops trapped within the hernia. Electronically Signed: Ravi Gay MD at 12:50 EDT , Physical Exam Narrative General: Alert, oriented, appears slightly uncomfortable HEENT: Atraumatic, normocephalic Eyes: Anicteric, normal conjunctiva, extraocular movements grossly intact Neck: Supple Respiratory: Clear to auscultation bilaterally, normal respiratory effort Cardiovascular: Regular rate GI: Tender to palpation diffusely, voluntary guarding Extremities: Trace lower extremity pitting edema Musculoskeletal: Moving all extremities Neuro: No overt focal neurological deficits Skin: No rashes appreciated Psych: Cooperative Assessment & Plan Assessment/Plan (1) Incarcerated ventral hernia: (2) ESRD (end stage renal disease) on dialysis: (3) DM type 2 causing ESRD: (4) Thyroid disease: PLAN: Plan #Incarcerated ventral hernias -Reduced in the ED, may still need ex lap, at the discretion of surgery team -Supportive care -Pt on cipro flagyl -06/01: Patient underwent diagnostic laparoscopy converted to laparotomy, lysis of adhesions, and primary repair of small bowel enterotomy on 05/31/2023. Diet being advanced per surgery and abdominal binder in place #End-stage renal disease on dialysis Monday -Missed dialysis today -Nephrology consulted -06/01: Nephrology managing. Had dialysis yesterday, does have elevated potassium today, will give calcium and additional insulin and recheck BMP, given recent bowel surgery Kayexalate order not entered at present, patient receiving dialysis again today #Abnormal UA -Decreased urination, white blood cells and leuk esterase in urine, urine culture pending, reasonable to proceed with antibiotics pending culture especially given high risk for decompensation acutely if patient has infection that is not treated and pt started on cipro which should be adequate at this time -06/01: Off antibiotics however again do not have high suspicion of clinically significant infection so will not resume empiric antibiotics at this time #Type 2 diabetes mellitus -Glucose checks and sliding scale insulin -Patient reports glucoses have been running high so we will need to continue long-acting insulin -06/01: Continue present regimen #Hypothyroidism -Continue Synthroid once her hypertension #Hypertension -Would benefit from continuing blood pressure medications, lisinopril can always be held perioperatively but high concern for rebound hypertension if clonidine held especially given that she is still presently hypertensive -06/01: Continue present medications #DVT ppx: MARILEEs Racquel Mai MD Time spent in the patient's overall evaluation,decision-making process, review of diagnostic data, adjustment of management, discussion with other providers, nursing nursing and ancillary staff involved in patient's care documentation, 36 minutes Charges/Coding Visit Charges Inpatient E&M: 77718 Subs Hosp L2
[2023-06-01] MEDS: Calcium Gluconate IV 1 GM in 0.9% Normal Saline (100mL Bag) 100 ML IV (10:09)
[2023-06-01] MEDS: Insulin Lispro 10 UNIT in Syringe 0 ML 6 UNIT IV (10:09)
[2023-06-01] MEDS: Dextrose 50%-Water 25 GM/50 ML DISP.SYRIN IV (10:10)
[2023-06-01] MEDS: Morphine 2 MG/ML Syringe IV ×2 (12:13→20:05)
[2023-06-01 12:38] LABS: Anion Gap 4 (5-15); BUN 41 mg/dL (7-18); BUN/Creat Ratio 7.2 RATIO (10-20); Chloride 106 mmol/L (98-107); EST Glomerular Filtration Rate 8 mL/min (>60); Est Glom Filt Rate - Afr Amer 10 mL/min (>60); Estimated Creatinine Clearance 8.79 ml/min; Glucose 126 mg/dL (74-106); Potassium 4.2 mmol/L (3.5-5.1); Sodium Level 138 mmol/L (136-145)
[2023-06-01] MEDS: PureFlow B 2K Dialysis Soln 1 BAG 6 BAG PF (13:09)
[2023-06-01] MEDS: 0.9% Normal Saline 1,000 ML IV.SOLN. 1000 ML OPERA.SITE (13:09)
--- NOTE | 2023-06-01 14:56 | PCM.HOSP.N ---
Hospitalist Note Pt now w/ GNR growing in urine, given GNR w/ UA and high risk for decompensation will treat with levaquin renally dosed (given anaphylactic pnc allg, sensitivities pending
[2023-06-01] MEDS: Lisinopril 40 MG Tablet PO (15:13)
[2023-06-01] MEDS: amLODIPine 5 MG Tablet PO (15:13)
[2023-06-01] MEDS: Influenza Virus Vac Quad 23-24 60 MCG/0.5 ML SYRINGE IM (15:17)
--- NOTE | 2023-06-01 15:24 | CHAPLAIN ---
Type of Pastoral Visit _x__ Initial Visit ___ Follow-up Visit ___ On-call Visit ___ General Patient Visit ___ Spiritual Assessment ___ Family Conference ___ Bereavement ___ Rapid Response ___ Code Blue ___ Other (describe below) Pastoral Care Referral From _x__ Patient ___ Family ___ Nurse ___ Physician ___ Early Childhood Education Instructor ___ Business Law Teacher ___ Other (describe below) Sacrament/Intervention ___ Active listening ___ Anointing ___ Hinduism ___ Bereavement ___ Communion ___ Nadia exploration ___ ___ Life review _x__ Prayer ___ Reconciliation ___ Sacrament of Sick _x__ Supportive presence ___ Wedding ___ Other (describe below) Pastoral Comments patient is receiving dialysis and is in obvious discomfort; pt spouse is at bedside; pt had surgical procedure yesterday; pt states that she would like prayer support but nothing else you can do right now; prayer and presence given with offer of ongoing support
[2023-06-01 15:48] LABS: Bedside Glucose 121 mg/dL (74-106)
--- NOTE | 2023-06-01 16:24 | CASEMGMT ---
Social Work SW met with pt to discuss advance directives.? Pt denies having completed a living will or health care POA and is not interested in additional information at this time. Pt made aware that SW is available for to assist with completing documents if pt changes their mind. BENNY Del Valle
--- NOTE | 2023-06-01 16:37 | CASEMGMT ---
Met with patient to complete NGUYEN form. NGUYEN form explained to patient who voiced understanding and signed form. Original form placed in pt?s chart and copy provided to patient. Etta Roper, Discharge Planning Asst.
--- NOTE | 2023-06-01 16:45 | CASEMGMT ---
RN?CM?REPAIRER HAIRSPRING?CM?to room to meet with patient for initial transition planning/care coordination?assessment.?RN?CM?introduced self and role at [facility].? Pt voices understanding and consents to?assessment?at this time.? Pt resting in bed in no distress at this time.? Pt is A/O at this time and answers all questions appropriately.?? Care providers, pharmacy, and demographics verified/updated at this time. PCP: Dr Denny Specialists:Dr Webb-rn mobile in [place]. Pt also sees a rn mobile @ [facility]. Pt also just started going to [facility] to start the process of getting on the kidney transplant list. HD: Pt goes to [facility] for OP HD in [facility] on MWF. Chair time 0530. Preferred Pharmacy: [facility] in [place] Insurance: [facility] Dual, [place] Prescription Benefit:?Yes Living Will/HPOA:?Pt does not currently have LW/HCPOA and would like to complete. Will notify SW. Pt made aware if SW unable to meet w/her prior to discharge that she can schedule an appt with SW as an OP to complete AD. She voices understanding. LNOK: , [place]. One adult daughter, age 22. Living Arrangements: Lives w/, dtr, ARETHA, and 2-yr-old grandson in ranch-style home w/no steps to enter through the front entrance. Independent w/ADL's and manages her own medications on some days. manages her meds on days pt goes to OP HD. Pt goes to the grocery store w/her . does home mgnt tasks. Transportation: DME: States has the following DME:?functioning glucometer w/supplies, shower chair ?Pt states no need for further DME at this time.? HHC/SNF: Hx of going to [facility] and has [facility] HHC in the past. Pt denies wanting HHC @ discharge. She states she wishes to return home and states her can assist her if needed. Pt wishes to return home and states has no concerns with going home at time of discharge.??CM?to follow for any discharge planning/needs.? Pt voices no concerns/needs at this time.? Advised pt to ask for?CM?if any questions/concerns/needs arise.? Voices understanding. PLAN:?? Andrea BSN?RN?CM
[2023-06-01] MEDS: levoFLOXacin IV 750 MG/150 ML BAG 100 MG IV (16:49)
[2023-06-01] MEDS: Acetaminophen 325 MG Tablet 650 MG PO (17:19)
[2023-06-01] MEDS: Atorvastatin Calcium 40 MG Tablet PO (21:38)
[2023-06-01] MEDS: Clonidine HCl 0.1 MG, Clonidine HCl 0.2 MG 0.3 MG PO (21:38)
[2023-06-01 21:50] LABS: Bedside Glucose 91 mg/dL (74-106)
[2023-06-02 00:58] VITALS: BP 111/40; PULSE 91; RESP 18; TEMP 37.2; O2SAT 93
[2023-06-02] MEDS: Morphine 2 MG/ML Syringe IV ×4 (02:59→20:06)
[2023-06-02 04:34] VITALS: BP 114/45; PULSE 96; RESP 16; TEMP 37.2; O2SAT 93
[2023-06-02] MEDS: Ondansetron 4 MG/2 ML Vial IV ×2 (05:11→15:55)
[2023-06-02] MEDS: 0.9% Saline Lock 10 ML Syringe IV ×4 (05:12→20:02)
[2023-06-02] MEDS: 0.9% Normal Saline (1000mL) 1,000 ML 30 ML IV (05:31)
[2023-06-02] MEDS: Levothyroxine 125 MCG Tablet PO (05:43)
[2023-06-02 06:27] LABS: Absolute Lymphocyte Count 0.76 X10^3/uL (0.83-4.51); Absolute Neutrophil Count 6.5 X10^3/uL (2.0-7.7); Basophil# 0.03 X10^3/uL; Basophil% 0.4 % (0-1); Eosinophil# 0.02 X10^3/uL; Eosinophils% 0.2 % (0-5); Hematocrit 29.4 % (37-47); Hemoglobin 8.9 g/dL (12.0-15.0); Lymphocyte # 0.76 X10^3/ul (0.83-4.51); Lymphocyte % 9.4 % (19-41); Mean Corp Hgb Conc 30.3 g/dL (32-36); Mean Corpuscular Hgb 31.6 pg (27.0-32.0); Mean Corpuscular Volume 104.3 fL (81-99); Mean Platelet Vol. 9.6 fl (6.2-12.0); Monocyte# 0.71 X10^3/uL; Monocyte% 8.8 % (0-10); NRBC Flagged by Analyzer 0 % (0-5); Neutrophil # 6.51 X10^3/uL (2.7-7.7); Neutrophil % 80.8 % (47-70); Platelet Count 184 K/mm3 (150-450); RBC Distribution Width CV 12.6 % (11.6-14.6); RBC Distribution Width SD 47.8 fl (35.1-43.9); Red Blood Count 2.82 M/mm3 (4.2-5.4); White Blood Count 8.1 K/mm3 (4.4-11.0)
[2023-06-02 06:37] LABS: Bedside Glucose 131 mg/dL (74-106)
[2023-06-02 06:51] LABS: Anion Gap 7 (5-15); BUN 36 mg/dL (7-18); BUN/Creat Ratio 6.1 RATIO (10-20); Calcium,Total 8.8 mg/dL (8.5-10.1); Chloride 103 mmol/L (98-107); Creatinine, Serum 5.91 mg/dL (0.55-1.02); EST Glomerular Filtration Rate 8 mL/min (>60); Est Glom Filt Rate - Afr Amer 9 mL/min (>60); Estimated Creatinine Clearance 8.48 ml/min; Glucose 135 mg/dL (74-106); Potassium 4.9 mmol/L (3.5-5.1); Sodium Level 136 mmol/L (136-145)
[2023-06-02 07:45] VITALS: O2SAT 95
--- NOTE | 2023-06-02 07:52 | PCM.PN.SRG ---
Subjective Subjective Patient still having some flatus, denies any bowel movements, complains of some burping, did ambulate some in the jacobs. Patient did get dialysis yesterday due to hyperkalemia and also getting dialysis today as this is her scheduled day. Objective Data Objective Data Vital Signs: Vital Signs Temp Pulse Resp BP Pulse Ox O2 Del Method O2 Flow Rate 99 F 96 16 114/45 L 93 Room Air 2.5 06/02/23 04:34 06/02/23 04:34 06/02/23 04:34 06/02/23 04:34 06/02/23 04:34 06/02/23 04:34 06/01/23 04:09 Oxygen Flow Rate (L/min) 2.5 Oxygen Delivery Method [2] Nasal Cannula Oxygen Delivery Method [1 ( Nasal Cannula Initial Baseline)] Oxygen Delivery Method Room Air Weight: 153 lb 14.122 oz Body Mass Index (BMI) 27.2 Intake & Output: Intake and Output for Last 24 Hours 05/31/23 06/01/23 06/02/23 23:59 23:59 23:59 Intake Total 2121.5 / 2121.5 570 / 570 887.5 / 887.5 Output Total 500 / 500 2100 / 2100 Balance 1621.5 / 1621.5 -1530 / -1530 887.5 / 887.5 Lab / Micro Data 06/02/23 05:30 06/02/23 05:30 Labs: Laboratory Results - last 24 hr 06/01/23 06:14: Sodium 136, Potassium 5.6 H, Chloride 104, Carbon Dioxide 25.0, Anion Gap 7, BUN 43 H, Creatinine 6.72 H, Estim Creat Clear Calc 7.46, Est GFR (MDRD) Af Amer 8 L, Est GFR (MDRD) Non-Af 7 L, BUN/Creatinine Ratio 6.4 L, Glucose 236 H, Calcium 8.0 L 06/01/23 08:29: POC Glucose 204 H 06/01/23 12:00: Sodium 138, Potassium 4.2, Chloride 106, Carbon Dioxide 28.0, Anion Gap 4 L, BUN 41 H, Creatinine 5.70 H, Estim Creat Clear Calc 8.79, Est GFR (MDRD) Af Amer 10 L, Est GFR (MDRD) Non-Af 8 L, BUN/Creatinine Ratio 7.2 L, Glucose 126 H, Calcium 9.0 06/01/23 15:16: POC Glucose 121 H 06/01/23 21:34: POC Glucose 91 06/02/23 05:30: WBC 8.1, RBC 2.82 L, Hgb 8.9 L, Hct 29.4 L, MCV 104.3 H, MCH 31.6, MCHC 30.3 L, RDW Std Deviation 47.8 H, RDW Coeff of Alvina 12.6, Plt Count 184, MPV 9.6, Immature Gran % (Auto) 0.400, Neut % (Auto) 80.8 H, Lymph % (Auto) 9.4 L, Iron % (Auto) 8.8, Eos % (Auto) 0.2, Baso % (Auto) 0.4, Absolute Neuts (auto) 6.5, Absolute Lymphs (auto) 0.76 L, Nucleated RBC % 0, Sodium 136, Potassium 4.9, Chloride 103, Carbon Dioxide 26.0, Anion Gap 7, BUN 36 H, Creatinine 5.91 H, Estim Creat Clear Calc 8.48, Est GFR (MDRD) Af Amer 9 L, Est GFR (MDRD) Non-Af 8 L, BUN/Creatinine Ratio 6.1 L, Glucose 135 H, Calcium 8.8 06/02/23 06:17: POC Glucose 131 H Micro: Microbiology 05/31/23 07:36 Urine, Catheterized Urine Culture - Preliminary Gram negative zack Physical Exam Const oriented x3 and no apparent distress Resp normal respiratory effort Cardio regular rate GI soft to palpation GI Narrative: Tender over midline, incision clean dry and intact with noel and abdominal binder in place. Extremity Extremity Narrative: Right upper extremity fistula Assessment & Plan Assessment/Plan (1) S/P laparotomy with lysis of adhesions: PLAN: Patient had multiple ventral hernias, one was incarcerated bowel. (2) Incarcerated incisional hernia: (3) UTI (urinary tract infection): PLAN: Gram-negative zack greater than 100,000 (4) DM type 2 causing ESRD: (5) ESRD (end stage renal disease) on dialysis: PLAN: Plan Okay for sips as patient is having flatus --when she had a bowel movement will advance to clears. Continue ambulation Continue abdominal binder as patient is at high risk for hernia UTI on admit?gram-negative rods > 100,000 antibiotics per hospitalist. Appreciate medicine's assistance with diabetes and nephrology with dialysis. Rayna Romo M.D. Pager: [phone] [facility] [address] [place] [address], [address] [place] [address] Office: [phone]
--- NOTE | 2023-06-02 08:07 | PN.HOSP_ITS ---
Reason for Visit Reason for Visit: Diagnoses Disorder of thyroid, unspecified (06/01/23) Type 2 diabetes mellitus with diabetic chronic kidney disease (06/01/23) Incisional hernia with obstruction, without gangrene (06/01/23) Other and unspecified ventral hernia with obstruction, without gangrene (06/01/23) End stage renal disease (06/01/23) Urinary tract infection, site not specified (06/01/23) Other specified postprocedural states (06/01/23) Dependence on renal dialysis (06/01/23) Subjective Subjective Still having abdominal pain, yesterday was having some pressure with urination and discomfort Objective Data Objective Data Vital Signs: Vital Signs Temp Pulse Resp BP Pulse Ox O2 Del Method O2 Flow Rate 99 F 96 16 114/45 L 93 Room Air 2.5 06/02/23 04:34 06/02/23 04:34 06/02/23 04:34 06/02/23 04:34 06/02/23 04:34 06/02/23 04:34 06/01/23 04:09 Oxygen Flow Rate (L/min) 2.5 Oxygen Delivery Method [2] Nasal Cannula Oxygen Delivery Method [1 ( Nasal Cannula Initial Baseline)] Oxygen Delivery Method Room Air Weight: 69.8 kg Body Mass Index (BMI) 27.2 Intake & Output: Intake and Output for Last 24 Hours 05/31/23 06/01/23 06/02/23 23:59 23:59 23:59 Intake Total 2121.5 / 2121.5 570 / 570 887.5 / 887.5 Output Total 500 / 500 2100 / 2100 Balance 1621.5 / 1621.5 -1530 / -1530 887.5 / 887.5 Lab / Micro Data 06/02/23 05:30 06/02/23 05:30 Labs: Laboratory Results - last 24 hr 06/01/23 08:29: POC Glucose 204 H 06/01/23 12:00: Sodium 138, Potassium 4.2, Chloride 106, Carbon Dioxide 28.0, Anion Gap 4 L, BUN 41 H, Creatinine 5.70 H, Estim Creat Clear Calc 8.79, Est GFR (MDRD) Af Amer 10 L, Est GFR (MDRD) Non-Af 8 L, BUN/Creatinine Ratio 7.2 L, Glucose 126 H, Calcium 9.0 06/01/23 15:16: POC Glucose 121 H 06/01/23 21:34: POC Glucose 91 06/02/23 05:30: WBC 8.1, RBC 2.82 L, Hgb 8.9 L, Hct 29.4 L, MCV 104.3 H, MCH 31.6, MCHC 30.3 L, RDW Std Deviation 47.8 H, RDW Coeff of Alvina 12.6, Plt Count 184, MPV 9.6, Immature Gran % (Auto) 0.400, Neut % (Auto) 80.8 H, Lymph % (Auto) 9.4 L, [place] % (Auto) 8.8, Eos % (Auto) 0.2, Baso % (Auto) 0.4, Absolute Neuts ( auto) 6.5, Absolute Lymphs (auto) 0.76 L, Nucleated RBC % 0, Sodium 136, Pota ssium 4.9, Chloride 103, Carbon Dioxide 26.0, Anion Gap 7, BUN 36 H, Creatinine 5.91 H, Estim Creat Clear Calc 8.48, Est GFR (MDRD) Af Amer 9 L, Est GFR (MDRD) Non-Af 8 L, BUN/Creatinine Ratio 6.1 L, Glucose 135 H, Calcium 8.8 06/02/23 06:17: POC Glucose 131 H Micro: Microbiology 05/31/23 07:36 Urine, Catheterized Urine Culture - Preliminary Gram negative zack Physical Exam Narrative General: Alert, oriented, no apparent distress HEENT: Atraumatic, normocephalic Eyes: extraocular movements grossly intact Neck: Supple Respiratory: normal respiratory effort Cardiovascular: no edema appreciated GI: Holding abdomen, just did not today walk with nurse Extremities: Moving all extremities Neuro: No overt focal neurological deficits Psych: Cooperative Assessment & Plan Assessment/Plan (1) Incarcerated ventral hernia: (2) ESRD (end stage renal disease) on dialysis: (3) DM type 2 causing ESRD: (4) Thyroid disease: PLAN: Plan #Incarcerated ventral hernias -Reduced in the ED, may still need ex lap, at the discretion of surgery team -Supportive care -Pt on cipro flagyl -06/01: Patient underwent diagnostic laparoscopy converted to laparotomy, lysis of adhesions, and primary repair of small bowel enterotomy on 05/31/2023. Diet being advanced per surgery and abdominal binder in place -06/02: Management per surgery #End-stage renal disease on dialysis Monday -Missed dialysis today -Nephrology consulted -06/01: Nephrology managing. Had dialysis yesterday, does have elevated potassium today, will give calcium and additional insulin and recheck BMP, given recent bowel surgery Kayexalate order not entered at present, patient receiving dialysis again today -06/02: Nephrology following, potassium within normal limits today #Abnormal UA-now with greater than 100,000 colonies gram-negative rods -Decreased urination, white blood cells and leuk esterase in urine, urine culture pending, reasonable to proceed with antibiotics pending culture especially given high risk for decompensation acutely if patient has infection that is not treated and pt started on cipro which should be adequate at this time -06/01: Off antibiotics however again do not have high suspicion of clinically significant infection so will not resume empiric antibiotics at this time UPDATE: Pt now w/ GNR growing in urine, given GNR w/ UA and high risk for decompensation will treat with levaquin renally dosed (given anaphylactic pnc allg), sensitivities pending -06/02: Growing E. coli resistant to Levaquin but is sensitive to carbapenems, s he tolerated meropenem so we will resume meropenem #Type 2 diabetes mellitus -Glucose checks and sliding scale insulin -Patient reports glucoses have been running high so we will need to continue ayaka g-acting insulin -06/01: Continue present regimen -06/02: Regimen adjusted yesterday and given patient n.p.o., continue present regimen pending diet advancement #Hypothyroidism -Continue Synthroid once her hypertension #Hypertension -Would benefit from continuing blood pressure medications, lisinopril can always be held perioperatively but high concern for rebound hypertension if clonidine held especially given that she is still presently hypertensive -06/01: Continue present medications #DVT ppx: SCDs Racquel Mai MD Time spent in the patient's overall evaluation,decision-making process, review of diagnostic data, adjustment of management, discussion with other providers, nursing nursing and ancillary staff involved in patient's care documentation, 36 minutes Charges/Coding Visit Charges Inpatient E&M: 92515 Subs Hosp L2
[2023-06-02 08:17] VITALS: BP 139/47; PULSE 100; RESP 17; TEMP 37.3; O2SAT 94
[2023-06-02] MEDS: Acetaminophen 325 MG Tablet 650 MG PO (08:38)
[2023-06-02] MEDS: Lisinopril 40 MG Tablet PO (10:50)
[2023-06-02] MEDS: Meropenem 1 GM in 0.9% Normal Saline (100mL MB+) 100 ML IV (10:51)
[2023-06-02] MEDS: amLODIPine 5 MG Tablet PO (10:51)
[2023-06-02 11:24] LABS: Bedside Glucose 139 mg/dL (74-106)
[2023-06-02] MEDS: Docusate Sodium 100 MG Capsule PO (15:54)
[2023-06-02] MEDS: Pantoprazole Sodium 40 MG in 0.9% Normal Saline (100mL MB+) 100 ML 330 MG IV (15:54)
[2023-06-02 16:04] VITALS: BP 136/49; PULSE 93; RESP 15; TEMP 36.9; O2SAT 94
[2023-06-02 16:30] LABS: Bedside Glucose 133 mg/dL (74-106)
[2023-06-02] MEDS: proCHLORPERazine 10 MG/2 ML Vial 5 MG IV (20:02)
[2023-06-02 21:14] VITALS: BP 142/48; PULSE 99; RESP 18; TEMP 37.3; O2SAT 92
[2023-06-02] MEDS: Clonidine HCl 0.1 MG, Clonidine HCl 0.2 MG 0.3 MG PO (21:20)
[2023-06-02] MEDS: Atorvastatin Calcium 40 MG Tablet PO (21:21)
[2023-06-02 22:11] LABS: Bedside Glucose 141 mg/dL (74-106)
[2023-06-03 03:48] VITALS: BP 129/47; PULSE 76; RESP 18; TEMP 36.9; O2SAT 95
[2023-06-03] MEDS: Ondansetron 4 MG/2 ML Vial IV ×2 (03:55→12:07)
[2023-06-03] MEDS: Morphine 2 MG/ML Syringe IV (03:55)
[2023-06-03] MEDS: 0.9% Saline Lock 10 ML Syringe IV ×3 (03:55→16:36)
[2023-06-03] MEDS: Levothyroxine 125 MCG Tablet PO (06:12)
[2023-06-03 06:15] LABS: Absolute Lymphocyte Count 0.67 X10^3/uL (0.83-4.51); Absolute Neutrophil Count 6.4 X10^3/uL (2.0-7.7); Basophil# 0.04 X10^3/uL; Basophil% 0.5 % (0-1); Eosinophil# 0.04 X10^3/uL; Eosinophils% 0.5 % (0-5); Hematocrit 27.3 % (37-47); Hemoglobin 8.4 g/dL (12.0-15.0); Lymphocyte # 0.67 X10^3/ul (0.83-4.51); Lymphocyte % 8.5 % (19-41); Mean Corp Hgb Conc 30.8 g/dL (32-36); Mean Corpuscular Hgb 31.3 pg (27.0-32.0); Mean Corpuscular Volume 101.9 fL (81-99); Mean Platelet Vol. 8.9 fl (6.2-12.0); Monocyte# 0.68 X10^3/uL; Monocyte% 8.6 % (0-10); NRBC Flagged by Analyzer 0 % (0-5); Neutrophil # 6.42 X10^3/uL (2.7-7.7); Neutrophil % 81.3 % (47-70); Platelet Count 182 K/mm3 (150-450); RBC Distribution Width CV 12.6 % (11.6-14.6); RBC Distribution Width SD 46.9 fl (35.1-43.9); Red Blood Count 2.68 M/mm3 (4.2-5.4); White Blood Count 7.9 K/mm3 (4.4-11.0)
[2023-06-03 06:57] LABS: Bedside Glucose 132 mg/dL (74-106)
[2023-06-03 07:17] LABS: Anion Gap 9 (5-15); BUN 59 mg/dL (7-18); BUN/Creat Ratio 7.5 RATIO (10-20); Calcium,Total 8.6 mg/dL (8.5-10.1); Chloride 103 mmol/L (98-107); EST Glomerular Filtration Rate 6 mL/min (>60); Est Glom Filt Rate - Afr Amer 7 mL/min (>60); Estimated Creatinine Clearance 6.34 ml/min; Glucose 140 mg/dL (74-106); Potassium 5.4 mmol/L (3.5-5.1); Sodium Level 136 mmol/L (136-145)
[2023-06-03 07:21] VITALS: O2SAT 91
[2023-06-03] MEDS: Morphine 4 MG/ML Syringe IV ×3 (07:49→16:36)
[2023-06-03] MEDS: proCHLORPERazine 10 MG/2 ML Vial 5 MG IV ×2 (07:50→16:36)
--- NOTE | 2023-06-03 08:06 | PN.SURG_ITS ---
Subjective Subjective Patient admits to having flatus but also states she is burping. No bowel movement. Patient states her nausea may be a little improved from previous. Patient is still needing occasional pain meds mostly for incisional pain Objective Data Objective Data Vital Signs: Vital Signs Temp Pulse Resp BP Pulse Ox O2 Del Method O2 Flow Rate 98.5 F 76 18 129/47 H 91 Room Air 2 06/03/23 03:48 06/03/23 03:48 06/03/23 03:48 06/03/23 03:48 06/03/23 07:21 06/03/23 07:21 06/02/23 21:15 Oxygen Flow Rate (L/min) 2 Oxygen Delivery Method [2] Nasal Cannula Oxygen Delivery Method [1 ( Nasal Cannula Initial Baseline)] Oxygen Delivery Method Room Air Weight: 153 lb 14.122 oz Body Mass Index (BMI) 27.2 Intake & Output: Intake and Output for Last 24 Hours 06/01/23 06/02/23 06/03/23 23:59 23:59 23:59 Intake Total 570 / 570 1477.5 / 1477.5 50 / 50 Output Total 2100 / 2100 0 / 0 0 / 0 Balance -1530 / -1530 1477.5 / 1477.5 50 / 50 Lab / Micro Data 06/03/23 06:00 06/03/23 06:00 Labs: Laboratory Results - last 24 hr 06/02/23 10:59: POC Glucose 139 H 06/02/23 16:09: POC Glucose 133 H 06/02/23 21:19: POC Glucose 141 H 06/03/23 06:00: WBC 7.9, RBC 2.68 L, Hgb 8.4 L, Hct 27.3 L, MCV 101.9 H, MCH 31.3, MCHC 30.8 L, RDW Std Deviation 46.9 H, RDW Coeff of Alvina 12.6, Plt Count 182, MPV 8.9, Immature Gran % (Auto) 0.600, Neut % (Auto) 81.3 H, Lymph % (Auto) 8.5 L, [place] % (Auto) 8.6, Eos % (Auto) 0.5, Baso % (Auto) 0.5, Absolute Neuts (auto) 6.4, Absolute Lymphs (auto) 0.67 L, Nucleated RBC % 0, Sodium 136, Potassium 5.4 H, Chloride 103, Carbon Dioxide 24.0, Anion Gap 9, BUN 59 H, Creatinine 7.90 H*, Estim Creat Clear Calc 6.34, Est GFR (MDRD) Af Amer 7 L, Est GFR (MDRD) Non-Af 6 L, BUN/Creatinine Ratio 7.5 L, Glucose 140 H, Calcium 8.6 06/03/23 06:11: POC Glucose 132 H Micro: Microbiology 05/31/23 07:36 Urine, Catheterized Urine Culture - Final Escherichia coli Physical Exam Const oriented x3 and no apparent distress Resp normal respiratory effort Cardio regular rate GI soft to palpation GI Narrative: Tender over midline, incision clean dry and intact with noel and abdominal binder in place. Extremity Extremity Narrative: Right upper extremity fistula Assessment & Plan Assessment/Plan (1) S/P laparotomy with lysis of adhesions: PLAN: Patient had multiple ventral hernias, one was incarcerated bowel. (2) Incarcerated incisional hernia: (3) UTI (urinary tract infection): PLAN: E. coli? Resistant to ampicillin and levofloxacin and Cipro (4) DM type 2 causing ESRD: (5) ESRD (end stage renal disease) on dialysis: PLAN: Plan Continue sips patient is having flatus still has some burping per patient we will check KUB Continue abdominal binder as patient is at high risk for hernia UTI on admit?E. coli?patient on meropenem Appreciate medicine's assistance with diabetes and nephrology with dialysis. Rayna Romo M.D. Pager: [phone] [facility] [address] [place] [address], [facility], [address] [place] [address] Office: [phone]
--- NOTE | 2023-06-03 08:18 | PCM.PN.HOSP ---
Reason for Visit Reason for Visit: Diagnoses Disorder of thyroid, unspecified (06/01/23) Type 2 diabetes mellitus with diabetic chronic kidney disease (06/01/23) Hyperkalemia (06/01/23) Major depressive disorder, single episode, unspecified (06/01/23) Anxiety disorder, unspecified (06/01/23) Essential (primary) hypertension (06/01/23) Incisional hernia with obstruction, without gangrene (06/01/23) Other and unspecified ventral hernia with obstruction, without gangrene (06/01/23) End stage renal disease (06/01/23) Urinary tract infection, site not specified (06/01/23) Acquired absence of other specified parts of digestive tract (06/01/23) Other specified postprocedural states (06/01/23) Dependence on renal dialysis (06/01/23) Subjective Subjective Still some abdominal soreness, has not been making much urine, no other acute complaints Objective Data Objective Data Vital Signs: Vital Signs Temp Pulse Resp BP Pulse Ox O2 Del Method O2 Flow Rate 98.5 F 76 18 129/47 H 91 Room Air 2 06/03/23 03:48 06/03/23 03:48 06/03/23 03:48 06/03/23 03:48 06/03/23 07:21 06/03/23 07:21 06/02/23 21:15 Oxygen Flow Rate (L/min) 2 Oxygen Delivery Method [2] Nasal Cannula Oxygen Delivery Method [1 ( Nasal Cannula Initial Baseline)] Oxygen Delivery Method Room Air Weight: 69.8 kg Body Mass Index (BMI) 27.2 Intake & Output: Intake and Output for Last 24 Hours 06/01/23 06/02/23 06/03/23 23:59 23:59 23:59 Intake Total 570 / 570 1477.5 / 1477.5 50 / 50 Output Total 2100 / 2100 0 / 0 0 / 0 Balance -1530 / -1530 1477.5 / 1477.5 50 / 50 Lab / Micro Data 06/03/23 06:00 06/03/23 06:00 Labs: Laboratory Results - last 24 hr 06/02/23 10:59: POC Glucose 139 H 06/02/23 16:09: POC Glucose 133 H 06/02/23 21:19: POC Glucose 141 H 06/03/23 06:00: WBC 7.9, RBC 2.68 L, Hgb 8.4 L, Hct 27.3 L, MCV 101.9 H, MCH 31.3, MCHC 30.8 L, RDW Std Deviation 46.9 H, RDW Coeff of Alvina 12.6, Plt Count 182, MPV 8.9, Immature Gran % (Auto) 0.600, Neut % (Auto) 81.3 H, Lymph % (Auto) 8.5 L, [place] % (Auto) 8.6, Eos % (Auto) 0.5, Baso % (Auto) 0.5, Absolute Neuts (auto) 6.4, Absolute Lymphs (auto) 0.67 L, Nucleated RBC % 0, Sodium 136, Potassium 5.4 H, Chloride 103, Carbon Dioxide 24.0, Anion Gap 9, BUN 59 H, Creatinine 7.90 H*, Estim Creat Clear Calc 6.34, Est GFR (MDRD) Af Amer 7 L, Est GFR (MDRD) Non-Af 6 L, BUN/Creatinine Ratio 7.5 L, Glucose 140 H, Calcium 8.6 06/03/23 06:11: POC Glucose 132 H Micro: Microbiology 05/31/23 07:36 Urine, Catheterized Urine Culture - Final Escherichia coli Physical Exam Narrative General: Alert, oriented, appears more comfortable today HEENT: Atraumatic, normocephalic Eyes: Anicteric, normal conjunctiva, extraocular movements grossly intact Neck: Supple Respiratory: Clear to auscultation bilaterally, normal respiratory effort Cardiovascular: Regular rate GI: Tender to palpation diffusely Extremities: No significant pitting edema Musculoskeletal: Moving all extremities Neuro: No overt focal neurological deficits Skin: No rashes appreciated Psych: Cooperative Assessment & Plan Assessment/Plan (1) Incarcerated ventral hernia: (2) ESRD (end stage renal disease) on dialysis: (3) DM type 2 causing ESRD: (4) Thyroid disease: PLAN: Plan #Incarcerated ventral hernias -Reduced in the ED, may still need ex lap, at the discretion of surgery team -Supportive care -Pt on cipro flagyl -06/01: Patient underwent diagnostic laparoscopy converted to laparotomy, lysis of adhesions, and primary repair of small bowel enterotomy on 05/31/2023. Diet being advanced per surgery and abdominal binder in place -06/02: Management per surgery -06/03: Patient remains n.p.o., surgery managing, patient getting a KUB. Will add incentive spirometer #End-stage renal disease on dialysis Monday -Missed dialysis today -Nephrology consulted -06/01: Nephrology managing. Had dialysis yesterday, does have elevated potassium today, will give calcium and additional insulin and recheck BMP, given recent bowel surgery Kayexalate order not entered at present, patient receiving dialysis again today -06/02: Nephrology following, potassium within normal limits today -06/03: Slightly hyperkalemic, patient being followed by nephrology #Abnormal UA-now with greater than 100,000 colonies gram-negative rods -Decreased urination, white blood cells and leuk esterase in urine, urine culture pending, reasonable to proceed with antibiotics pending culture especially given high risk for decompensation acutely if patient has infection that is not treated and pt started on cipro which should be adequate at this time -06/01: Off antibiotics however again do not have high suspicion of clinically significant infection so will not resume empiric antibiotics at this time UPDATE: Pt now w/ GNR growing in urine, given GNR w/ UA and high risk for decompensation will treat with levaquin renally dosed (given anaphylactic pnc allg), sensitivities pending -06/02: Growing E. coli resistant to Levaquin but is sensitive to carbapenems, she tolerated meropenem so we will resume meropenem -06/03: Continue meropenem #Type 2 diabetes mellitus -Glucose checks and sliding scale insulin -Patient reports glucoses have been running high so we will need to continue long-acting insulin -06/01: Continue present regimen -06/02: Regimen adjusted yesterday and given patient n.p.o., continue present regimen pending diet advancement -06/03: Continue lower adjustment of sliding scale insulin, has been well controlled on this alone #Hypothyroidism -Continue Synthroid #Hypertension -Would benefit from continuing blood pressure medications, lisinopril can always be held perioperatively but high concern for rebound hypertension if clonidine held especially given that she is still presently hypertensive -06/01: Continue present medications #DVT ppx: SCDs Racquel Mai MD Time spent in the patient's overall evaluation,decision-making process, review of diagnostic data, adjustment of management, discussion with other providers, nursing nursing and ancillary staff involved in patient's care documentation, 36 minutes Charges/Coding Visit Charges Inpatient E&M: 36208 Subs Hosp L2
--- NOTE | 2023-06-03 09:40 | RAD_ITS ---
HISTORY: post op ileus -- portable. TECHNIQUE: XR Abdomen 1 View. COMPARISON: CT 05/31/2023. FINDINGS: BOWEL GAS PATTERN: No dilated bowel loops with a paucity of bowel gas in the midabdomen. Scattered air, stool, and residual contrast in the colon down to the level of the rectum. FREE AIR: Not assessed on supine view. CALCIFICATIONS: No abnormal calcifications observed. BONES: Unremarkable. SOFT TISSUES: Mild atelectasis in the lung bases. Midline skin noel now seen. Right upper quadrant surgical clips. Right groin surgical clips. RAD/Abdomen Single View (Portable) IMPRESSION: Nonspecific bowel gas pattern with interval passage of oral contrast from small bowel into colon. Electronically Signed: Bonita Callahan MD at 10:21 EDT ,
[2023-06-03 09:45] VITALS: BP 116/43; PULSE 76; RESP 16; TEMP 36.8; O2SAT 91
[2023-06-03] MEDS: Meropenem 1 GM in 0.9% Normal Saline (100mL MB+) 100 ML IV (10:09)
[2023-06-03] MEDS: Lisinopril 40 MG Tablet PO (10:10)
[2023-06-03] MEDS: Docusate Sodium 100 MG Capsule PO (10:10)
[2023-06-03] MEDS: amLODIPine 5 MG Tablet PO (10:10)
[2023-06-03 12:03] LABS: Bedside Glucose 122 mg/dL (74-106)
[2023-06-03] MEDS: Sodium Polystyrene Sulfonate 15 GM/60 ML UDC 30 GM PO (14:02)
[2023-06-03] MEDS: Bisacodyl 10 MG Suppository RC (14:02)
[2023-06-03] MEDS: Pantoprazole Sodium 40 MG in 0.9% Normal Saline (100mL MB+) 100 ML 330 MG IV (14:03)
[2023-06-03 15:04] VITALS: BP 114/44; PULSE 79; RESP 16; TEMP 36.4; O2SAT 98
[2023-06-03 16:20] LABS: Bedside Glucose 116 mg/dL (74-106)
[2023-06-03 20:28] VITALS: BP 125/44; PULSE 92; RESP 15; TEMP 36.8; O2SAT 97
[2023-06-03] MEDS: oxyCODONE 5 MG Tablet PO (20:40)
[2023-06-03] MEDS: Clonidine HCl 0.1 MG, Clonidine HCl 0.2 MG 0.3 MG PO (20:48)
[2023-06-03] MEDS: Atorvastatin Calcium 40 MG Tablet PO (20:48)
[2023-06-03 21:20] LABS: Bedside Glucose 139 mg/dL (74-106)
[2023-06-03] MEDS: Acetaminophen 325 MG Tablet 650 MG PO (23:50)
[2023-06-04] MEDS: oxyCODONE 5 MG Tablet PO ×5 (01:21→21:19)
[2023-06-04 02:50] VITALS: BP 132/43; PULSE 120; RESP 18; TEMP 36.7; O2SAT 95
[2023-06-04 06:08] LABS: Absolute Lymphocyte Count 0.59 X10^3/uL (0.83-4.51); Absolute Neutrophil Count 4.5 X10^3/uL (2.0-7.7); Basophil# 0.03 X10^3/uL; Basophil% 0.5 % (0-1); Eosinophil# 0.07 X10^3/uL; Eosinophils% 1.2 % (0-5); Hematocrit 25.3 % (37-47); Lymphocyte # 0.59 X10^3/ul (0.83-4.51); Lymphocyte % 10.1 % (19-41); Mean Corp Hgb Conc 31.6 g/dL (32-36); Mean Corpuscular Hgb 32.1 pg (27.0-32.0); Mean Corpuscular Volume 101.6 fL (81-99); Mean Platelet Vol. 8.9 fl (6.2-12.0); Monocyte% 10.3 % (0-10); NRBC Flagged by Analyzer 0 % (0-5); Neutrophil % 77.2 % (47-70); POSITIVE DIFFERENTIAL YES; Platelet Count 188 K/mm3 (150-450); RBC Distribution Width CV 12.6 % (11.6-14.6); RBC Distribution Width SD 46.4 fl (35.1-43.9); Red Blood Count 2.49 M/mm3 (4.2-5.4); White Blood Count 5.8 K/mm3 (4.4-11.0)
[2023-06-04 06:31] LABS: Differential Indicated SCAN CRITERIA MET
[2023-06-04] MEDS: Levothyroxine 125 MCG Tablet PO (06:52)
[2023-06-04] MEDS: Bisacodyl 10 MG Suppository RC (06:52)
[2023-06-04 07:21] LABS: Bedside Glucose 119 mg/dL (74-106)
[2023-06-04 07:29] LABS: Albumin, Serum 2.1 g/dL (3.2-5.0); Anion Gap 9 (5-15); BUN 74 mg/dL (7-18); BUN/Creat Ratio 7.8 RATIO (10-20); Calcium,Total 8.1 mg/dL (8.5-10.1); Chloride 104 mmol/L (98-107); Creatinine, Serum 9.47 mg/dL (0.55-1.02); EST Glomerular Filtration Rate 5 mL/min (>60); Est Glom Filt Rate - Afr Amer 5 mL/min (>60); Estimated Creatinine Clearance 5.29 ml/min; Glucose 127 mg/dL (74-106); Phosphorus 5.6 mg/dL (2.5-4.9); Potassium 4.9 mmol/L (3.5-5.1); Sodium Level 137 mmol/L (136-145)
[2023-06-04 07:45] LABS: Anisocytosis 1+
--- NOTE | 2023-06-04 07:50 | PN.HOSP_ITS ---
Reason for Visit Reason for Visit: Diagnoses Disorder of thyroid, unspecified (06/01/23) Type 2 diabetes mellitus with diabetic chronic kidney disease (06/01/23) Hyperkalemia (06/01/23) Major depressive disorder, single episode, unspecified (06/01/23) Anxiety disorder, unspecified (06/01/23) Essential (primary) hypertension (06/01/23) Incisional hernia with obstruction, without gangrene (06/01/23) Other and unspecified ventral hernia with obstruction, without gangrene (06/01/23) End stage renal disease (06/01/23) Urinary tract infection, site not specified (06/01/23) Acquired absence of other specified parts of digestive tract (06/01/23) Other specified postprocedural states (06/01/23) Dependence on renal dialysis (06/01/23) Subjective Subjective Still sore but feeling better, reports some of the pressure in her lower abdomen improved after she had bowel movement, diet slowly being advanced, denies chest pain or shortness of breath Objective Data Objective Data Vital Signs: Vital Signs Temp Pulse Resp BP Pulse Ox O2 Del Method O2 Flow Rate 98.0 F 120 H 18 132/43 H 95 Room Air 2 06/04/23 02:50 06/04/23 02:50 06/04/23 02:50 06/04/23 02:50 06/04/23 02:50 06/04/23 02:50 06/04/23 01:33 Oxygen Flow Rate (L/min) 2 Oxygen Delivery Method [2] Nasal Cannula Oxygen Delivery Method [1 ( Nasal Cannula Initial Baseline)] Oxygen Delivery Method Room Air Weight: 69.8 kg Body Mass Index (BMI) 27.2 Intake & Output: Intake and Output for Last 24 Hours 06/02/23 06/03/23 06/04/23 23:59 23:59 23:59 Intake Total 1477.5 / 1477.5 1430 / 1622 222 / 222 Output Total 0 / 0 2099 / 2099 Balance 1477.5 / 1477.5 -670 / -478 222 / 222 Lab / Micro Data 06/04/23 05:30 06/04/23 05:30 Labs: Laboratory Results - last 24 hr 06/03/23 11:43: POC Glucose 122 H 06/03/23 16:01: POC Glucose 116 H 06/03/23 20:58: POC Glucose 139 H 06/04/23 05:30: WBC 5.8, RBC 2.49 L, Hgb 8.0 L, Hct 25.3 L, MCV 101.6 H, MCH 32.1 H, MCHC 31.6 L, RDW Std Deviation 46.4 H, RDW Coeff of Alvina 12.6, Plt Count 188, MPV 8.9, Immature Gran % (Auto) 0.700, Neut % (Auto) 77.2 H, Lymph % (Auto) 10.1 L, Gem % (Auto) 10.3 H, Eos % (Auto) 1.2, Baso % (Auto) 0.5, Absolute Neuts (auto) 4.5, Absolute Lymphs (auto) 0.59 L, Nucleated RBC % 0, Anisocytosis 1+, Sodium 137, Potassium 4.9, Chloride 104, Carbon Dioxide 24.0, Anion Gap 9, BUN 74 H, Creatinine 9.47 H*, Estim Creat Clear Calc 5.29, Est GFR (MDRD) Af Amer 5 L, Est GFR (MDRD) Non-Af 5 L, BUN/Creatinine Ratio 7.8 L, Glucose 127 H, Calcium 8.1 L, Phosphorus 5.6 H, Albumin 2.1 L 06/04/23 06:50: POC Glucose 119 H Micro: Microbiology 05/31/23 07:36 Urine, Catheterized Urine Culture - Final Escherichia coli Radiography Diagnostic Testing: Radiology Impression KUB X-Ray 06/03/23 09:40 IMPRESSION: Nonspecific bowel gas pattern with interval passage of oral contrast from small bowel into colon. Electronically Signed: Bonita Callahan MD at 10:21 EDT , Physical Exam Narrative General: Alert, oriented, appears more comfortable today HEENT: Atraumatic, normocephalic Eyes: Anicteric, normal conjunctiva, extraocular movements grossly intact Neck: Supple Respiratory: Clear to auscultation bilaterally, normal respiratory effort Cardiovascular: Regular rate GI: Less tender Extremities: No significant pitting edema Musculoskeletal: Moving all extremities Neuro: No overt focal neurological deficits Skin: No rashes appreciated Psych: Cooperative Assessment & Plan Assessment/Plan (1) Incarcerated ventral hernia: (2) ESRD (end stage renal disease) on dialysis: (3) DM type 2 causing ESRD: (4) Thyroid disease: PLAN: Plan #Incarcerated ventral hernias -Reduced in the ED, may still need ex lap, at the discretion of surgery team -Supportive care -Pt on cipro flagyl -06/01: Patient underwent diagnostic laparoscopy converted to laparotomy, lysis of adhesions, and primary repair of small bowel enterotomy on 05/31/2023. Diet being advanced per surgery and abdominal binder in place -06/02: Management per surgery -06/03: Patient remains n.p.o., surgery managing, patient getting a KUB. Will add incentive spirometer -06/04: KUB unremarkable, patient started on clear liquid diet and had BM and diet being further advanced, advancement per surgery #End-stage renal disease on dialysis Monday -Missed dialysis today -Nephrology consulted -06/01: Nephrology managing. Had dialysis yesterday, does have elevated potassium today, will give calcium and additional insulin and recheck BMP, given recent bowel surgery Kayexalate order not entered at present, patient receiving dialysis again today -06/02: Nephrology following, potassium within normal limits today -06/03: Slightly hyperkalemic, patient being followed by nephrology -06/04: Discussed with surgery and nephrology, given Kayexalate yesterday, potassium normalized today, HD per nephrology #Abnormal UA-now with greater than 100,000 colonies gram-negative rods -Decreased urination, white blood cells and leuk esterase in urine, urine culture pending, reasonable to proceed with antibiotics pending culture especially given high risk for decompensation acutely if patient has infection that is not treated and pt started on cipro which should be adequate at this time -06/01: Off antibiotics however again do not have high suspicion of clinically significant infection so will not resume empiric antibiotics at this time UPDATE: Pt now w/ GNR growing in urine, given GNR w/ UA and high risk for decompensation will treat with levaquin renally dosed (given anaphylactic pnc allg), sensitivities pending -06/02: Growing E. coli resistant to Levaquin but is sensitive to carbapenems, she tolerated meropenem so we will resume meropenem -06/03: Continue meropenem -06/04: Doing well on meropenem however patient lost IV access and given she is improving it is reasonable to switch her to PO, discussed with pharmacy given her end-stage renal disease, allergies, and sensitivity pattern and it was recommended fosfomycin x1 and repeated dose tomorrow after dialysis, will place orders #Type 2 diabetes mellitus -Glucose checks and sliding scale insulin -Patient reports glucoses have been running high so we will need to continue long-acting insulin -06/01: Continue present regimen -06/02: Regimen adjusted yesterday and given patient n.p.o., continue present regimen pending diet advancement -06/03: Continue lower adjustment of sliding scale insulin, has been well controlled on this alone -06/04: On clear liquids and this is being advanced, glucoses still remain well within control despite holding long-acting and Premeal, continue adjusted sliding scale #Hypothyroidism -Continue Synthroid #Hypertension -Would benefit from continuing blood pressure medications, lisinopril can always be held perioperatively but high concern for rebound hypertension if clonidine held especially given that she is still presently hypertensive -06/01: Continue present medications #DVT ppx: SCDs Racquel Mai MD Time spent in the patient's overall evaluation,decision-making process, review of diagnostic data, adjustment of management, discussion with other providers, nursing nursing and ancillary staff involved in patient's care documentation, 51 minutes Charges/Coding Visit Charges Inpatient E&M: 11497 [facility] Hosp L3
[2023-06-04 08:33] VITALS: O2SAT 93
[2023-06-04 08:40] VITALS: BP 120/45; PULSE 97; RESP 16; TEMP 36.4; O2SAT 96
--- NOTE | 2023-06-04 08:59 | PCM.PN.SRG ---
Subjective Subjective richard clears, +flatus & BM x1 Objective Data Objective Data Vital Signs: Vital Signs Temp Pulse Resp BP Pulse Ox O2 Del Method O2 Flow Rate 97.6 F L 97 16 120/45 L 96 Room Air 2 06/04/23 08:40 06/04/23 08:40 06/04/23 08:40 06/04/23 08:40 06/04/23 08:40 06/04/23 08:40 06/04/23 01:33 Oxygen Flow Rate (L/min) 2 Oxygen Delivery Method [2] Nasal Cannula Oxygen Delivery Method [1 ( Nasal Cannula Initial Baseline)] Oxygen Delivery Method Room Air Weight: 153 lb 14.122 oz Body Mass Index (BMI) 27.2 Intake & Output: Intake and Output for Last 24 Hours 06/02/23 06/03/23 06/04/23 23:59 23:59 23:59 Intake Total 1477.5 / 1477.5 1430 / 1622 222 / 222 Output Total 0 / 0 2100 / 2100 Balance 1477.5 / 1477.5 -670 / -478 222 / 222 Lab / Micro Data 06/04/23 05:30 06/04/23 05:30 Labs: Laboratory Results - last 24 hr 06/03/23 11:43: POC Glucose 122 H 06/03/23 16:01: POC Glucose 116 H 06/03/23 20:58: POC Glucose 139 H 06/04/23 05:30: WBC 5.8, RBC 2.49 L, Hgb 8.0 L, Hct 25.3 L, MCV 101.6 H, MCH 32.1 H, MCHC 31.6 L, RDW Std Deviation 46.4 H, RDW Coeff of Alvina 12.6, Plt Count 188, MPV 8.9, Immature Gran % (Auto) 0.700, Neut % (Auto) 77.2 H, Lymph % (Auto) 10.1 L, [place] % (Auto) 10.3 H, Eos % (Auto) 1.2, Baso % (Auto) 0.5, Absolute Neuts (auto) 4.5, Absolute Lymphs (auto) 0.59 L, Nucleated RBC % 0, Anisocytosis 1+, Sodium 137, Potassium 4.9, Chloride 104, Carbon Dioxide 24.0, Anion Gap 9, BUN 74 H, Creatinine 9.47 H*, Estim Creat Clear Calc 5.29, Est GFR (MDRD) Af Amer 5 L, Est GFR (MDRD) Non-Af 5 L, BUN/Creatinine Ratio 7.8 L, Glucose 127 H, Calcium 8.1 L, Phosphorus 5.6 H, Albumin 2.1 L 06/04/23 06:50: POC Glucose 119 H Micro: Microbiology 05/31/23 07:36 Urine, Catheterized Urine Culture - Final Escherichia coli Radiography Diagnostic Testing: Radiology Impression KUB X-Ray 06/03/23 09:40 IMPRESSION: Nonspecific bowel gas pattern with interval passage of oral contrast from small bowel into colon. Electronically Signed: Bonita Callahan MD at 10:21 EDT , Physical Exam Const oriented x3 and no apparent distress Resp normal respiratory effort Cardio regular rate GI soft to palpation GI Narrative: Tender over midline, incision clean dry and intact with noel and abdominal binder in place. Extremity Extremity Narrative: Right upper extremity fistula Assessment & Plan Assessment/Plan (1) S/P laparotomy with lysis of adhesions: PLAN: Patient had multiple ventral hernias, one was incarcerated bowel. (2) Incarcerated incisional hernia: (3) UTI (urinary tract infection): PLAN: E. coli? Resistant to ampicillin and levofloxacin and Cipro (4) DM type 2 causing ESRD: (5) ESRD (end stage renal disease) on dialysis: PLAN: Plan richard clears advance to full- if richard will go to [facility] Continue abdominal binder as patient is at high risk for hernia UTI on admit?E. coli?patient on meropenem--hospitalist may change to PO has pt lost IV access; also will straight cath if +bladder scan as pt has not urinated here and does have UTI- pt only urinates about 1 cup a day per pt. Appreciate medicine's assistance with diabetes and nephrology with dialysis. Rayna Romo M.D. Pager: [phone] [facility] [address] [place] [address], [facility], [address] [place] [id number] Office: [phone]
[2023-06-04] MEDS: Glucerna Shake 120 ML LIQUID PO ×3 (09:53→16:46)
[2023-06-04] MEDS: Acetaminophen 325 MG Tablet 650 MG PO ×2 (09:53→16:43)
[2023-06-04] MEDS: Lisinopril 40 MG Tablet PO (09:54)
[2023-06-04] MEDS: amLODIPine 5 MG Tablet PO (09:54)
[2023-06-04] MEDS: Docusate Sodium 100 MG Capsule PO (09:54)
[2023-06-04] MEDS: Ondansetron ODT 4 MG Tablet PO (10:05)
[2023-06-04] MEDS: Insulin Lispro 100 UNIT/ML INSULN.PEN SC ×2 (10:46→16:44)
[2023-06-04 11:19] LABS: Bedside Glucose 200 mg/dL (74-106)
--- NOTE | 2023-06-04 11:54 | PCM.PN.BLA ---
Progress Note labs, vitals stable. clinically stable to wait until tomorrow for dialysis. JUAN PABLO hospitalist. Assessment & Plan Assessment/Plan (1) ESRD (end stage renal disease) on dialysis: PLAN: HD MWF at [facility] Dr Webb primary digital imaging technician. Dialysis on Monday, labs and oxygenation stable. JUAN PABLO hospitaist (2) Incarcerated ventral hernia: PLAN: s/p laparotomy, RADHA (3) DM type 2 causing ESRD: PLAN: sugars stable on insulin at home (4) Hypertension: PLAN: stable bp (5) Hyperkalemia: PLAN: resolved (6) Anemia of chronic disease: PLAN: LEANA on dialysis
[2023-06-04] MEDS: FOSFOMYCIN TROMETHAMINE 3 GM PACKET PO (12:15)
[2023-06-04 14:40] VITALS: BP 114/57; PULSE 94; RESP 16; TEMP 36.7; O2SAT 91
[2023-06-04 17:20] LABS: Bedside Glucose 203 mg/dL (74-106)
[2023-06-04 21:01] VITALS: BP 114/37; PULSE 81; RESP 12; TEMP 36.7; O2SAT 97
[2023-06-04] MEDS: Atorvastatin Calcium 40 MG Tablet PO (21:12)
[2023-06-04] MEDS: Clonidine HCl 0.1 MG, Clonidine HCl 0.2 MG 0.3 MG PO (21:15)
[2023-06-04 21:52] LABS: Bedside Glucose 133 mg/dL (74-106)
[2023-06-05] VITALS (13 sets, daily range): BP systolic 110–218; BP diastolic 40–62; PULSE 70–101; RESP 12–16; TEMP 35.7–36.8; O2SAT 92–100; BMI 27.2; BMI 26.6
[2023-06-05] MEDS: oxyCODONE 5 MG Tablet PO ×3 (02:15→20:02)
[2023-06-05] MEDS: Ondansetron ODT 4 MG Tablet PO (03:10)
[2023-06-05 06:06] LABS: Absolute Lymphocyte Count 0.88 X10^3/uL (0.83-4.51); Absolute Neutrophil Count 2.9 X10^3/uL (2.0-7.7); Basophil# 0.05 X10^3/uL; Basophil% 1.1 % (0-1); Eosinophil# 0.13 X10^3/uL; Eosinophils% 2.9 % (0-5); Hematocrit 26.7 % (37-47); Hemoglobin 8.2 g/dL (12.0-15.0); Lymphocyte # 0.88 X10^3/ul (0.83-4.51); Lymphocyte % 19.3 % (19-41); Mean Corp Hgb Conc 30.7 g/dL (32-36); Mean Corpuscular Hgb 31.5 pg (27.0-32.0); Mean Corpuscular Volume 102.7 fL (81-99); Monocyte# 0.49 X10^3/uL; Monocyte% 10.8 % (0-10); NRBC Flagged by Analyzer 0 % (0-5); Neutrophil # 2.93 X10^3/uL (2.7-7.7); Neutrophil % 64.4 % (47-70); Platelet Count 194 K/mm3 (150-450); RBC Distribution Width SD 47.8 fl (35.1-43.9); White Blood Count 4.6 K/mm3 (4.4-11.0)
[2023-06-05] MEDS: Levothyroxine 125 MCG Tablet PO (06:23)
[2023-06-05 07:14] LABS: Bedside Glucose 150 mg/dL (74-106)
[2023-06-05] MEDS: PureFlow B 2K Dialysis Soln 1 BAG 6 BAG PF (07:28)
[2023-06-05] MEDS: 0.9% Normal Saline 1,000 ML IV.SOLN. 1000 ML OPERA.SITE (07:28)
[2023-06-05 07:51] LABS: Anion Gap 10 (5-15); BUN 85 mg/dL (7-18); BUN/Creat Ratio 7.7 RATIO (10-20); Calcium,Total 8.3 mg/dL (8.5-10.1); Chloride 102 mmol/L (98-107); EST Glomerular Filtration Rate 4 mL/min (>60); Est Glom Filt Rate - Afr Amer 5 mL/min (>60); Estimated Creatinine Clearance 4.56 ml/min; Glucose 167 mg/dL (74-106); Potassium 4.6 mmol/L (3.5-5.1); Sodium Level 139 mmol/L (136-145)
--- NOTE | 2023-06-05 09:08 | PN.SURG_ITS ---
Subjective Subjective Patient is a 58 y/o F I am following s/p diagnostic laparoscopy converted to laparotomy, lysis of adhesions, primary repair of small bowel enterotomy by Dr. Romo on 05/31. Patient is very tearful this morning. She notes abdominal cramping from the suppository that was given last night. She was currently being changed from having a bowel movement. She is also currently receiving dialysis. She denies nausea, vomiting, fever. She notes abdominal cramping, no true pain. She is passing flatus. Objective Data Objective Data Vital Signs: Vital Signs Temp Pulse Resp BP Pulse Ox O2 Del Method O2 Flow Rate 97.7 F L 96 13 136/58 H 93 Room Air 2 06/05/23 03:07 06/05/23 08:56 06/05/23 08:56 06/05/23 08:56 06/05/23 07:50 06/05/23 08:56 06/05/23 03:07 Oxygen Flow Rate (L/min) 2 Oxygen Delivery Method [2] Nasal Cannula Oxygen Delivery Method [1 ( Nasal Cannula Initial Baseline)] Oxygen Delivery Method Room Air Weight: 153 lb 14.122 oz Body Mass Index (BMI) 27.2 Intake & Output: Intake and Output for Last 24 Hours 06/03/23 06/04/23 06/05/23 23:59 23:59 23:59 Intake Total 1430 / 1622 862 / 1022 210 / 210 Output Total 2100 / 2100 400 / 400 Balance -670 / -478 462 / 622 210 / 210 Lab / Micro Data 06/05/23 05:21 06/05/23 05:21 Labs: Laboratory Results - last 24 hr 06/04/23 10:44: POC Glucose 200 H 06/04/23 16:42: POC Glucose 203 H 06/04/23 21:25: POC Glucose 133 H 06/05/23 05:21: WBC 4.6, RBC 2.60 L, Hgb 8.2 L, Hct 26.7 L, MCV 102.7 H, MCH 31.5, MCHC 30.7 L, RDW Std Deviation 47.8 H, RDW Coeff of Alvina 13.0, Plt Count 194, MPV 9.0, Immature Gran % (Auto) 1.500 H, Neut % (Auto) 64.4, Lymph % (Auto) 19.3, [place] % (Auto) 10.8 H, Eos % (Auto) 2.9, Baso % (Auto) 1.1 H, Absolute Neuts (auto) 2.9, Absolute Lymphs (auto) 0.88, Nucleated RBC % 0, Sodium 139, Potassium 4.6, Chloride 102, Carbon Dioxide 27.0, Anion Gap 10, BUN 85 H, Creati nine 11.00 H*, Estim Creat Clear Calc 4.56, Est GFR (MDRD) Af Amer 5 L, Est GFR (MDRD) Non-Af 4 L, BUN/Creatinine Ratio 7.7 L, Glucose 167 H, Calcium 8.3 L 06/05/23 06:28: POC Glucose 150 H Micro: Microbiology 05/31/23 07:36 Urine, Catheterized Urine Culture - Final Escherichia coli Assessment & Plan Assessment/Plan (1) S/P laparotomy with lysis of adhesions: PLAN: Patient seems very distraught and tearful this morning Abdominal exam was unable to completed at this time due to patient being on dialysis and patient currently being changed from having a bowel movement Will return later today for an abdominal exam Increase patient to regular, renal diet this morning Continue to wear the abdominal binder If patient tolerates diet and is medically stable, possible discharge later today Charges/Coding Visit Charges Inpatient E&M: 74377 Subs Hosp L1 (post-op; no charge)
[2023-06-05] MEDS: Glucerna Shake 120 ML LIQUID PO (10:08)
[2023-06-05] MEDS: amLODIPine 5 MG Tablet PO (11:10)
[2023-06-05] MEDS: Lisinopril 40 MG Tablet PO (11:10)
[2023-06-05] MEDS: Pantoprazole Sodium 40 MG in 0.9% Normal Saline (100mL MB+) 100 ML 330 MG IV (11:10)
[2023-06-05] MEDS: 0.9% Saline Lock 10 ML Syringe IV (11:13)
--- NOTE | 2023-06-05 11:30 | PCM.PROGNOTE ---
Subjective Subjective Patient seen and examined. She had no complaints and felt well. She had an uneventful night. Review of systems otherwise negative. She was undergoing dialysis at time of review. She has been started on a clear liquid diet and was tolerating it. Review of symptoms otherwise negative. Objective Data Objective Data Vital Signs: Vital Signs Temp Pulse Resp BP Pulse Ox O2 Del Method O2 Flow Rate 96.9 F L 91 14 130/42 H 96 Room Air 2 06/05/23 10:57 06/05/23 10:57 06/05/23 10:57 06/05/23 10:57 06/05/23 10:57 06/05/23 10:57 06/05/23 10:11 Oxygen Flow Rate (L/min) 2 Oxygen Delivery Method [2] Nasal Cannula Oxygen Delivery Method [1 ( Nasal Cannula Initial Baseline)] Oxygen Delivery Method Room Air Weight: 150 lb 2.157 oz Body Mass Index (BMI) 26.6 Intake & Output: Intake and Output for Last 24 Hours 06/03/23 06/04/23 06/05/23 23:59 23:59 23:59 Intake Total 1430 / 1622 862 / 1022 210 / 210 Output Total 2100 / 2100 400 / 400 1700 / 1700 Balance -670 / -478 462 / 622 -1490 / -1490 Lab / Micro Data 06/05/23 05:21 06/05/23 05:21 Labs: Laboratory Results - last 24 hr 06/04/23 16:42: POC Glucose 203 H 06/04/23 21:25: POC Glucose 133 H 06/05/23 05:21: WBC 4.6, RBC 2.60 L, Hgb 8.2 L, Hct 26.7 L, MCV 102.7 H, MCH 31.5, MCHC 30.7 L, RDW Std Deviation 47.8 H, RDW Coeff of Alvina 13.0, Plt Count 194, MPV 9.0, Immature Gran % (Auto) 1.500 H, Neut % (Auto) 64.4, Lymph % (Auto) 19.3, [place] % (Auto) 10.8 H, Eos % (Auto) 2.9, Baso % (Auto) 1.1 H, Absolute Neuts (auto) 2.9, Absolute Lymphs (auto) 0.88, Nucleated RBC % 0, Sodium 139, Potassium 4.6, Chloride 102, Carbon Dioxide 27.0, Anion Gap 10, BUN 85 H, Creatinine 11.00 H*, Estim Creat Clear Calc 4.56, Est GFR (MDRD) Af Amer 5 L, Est GFR (MDRD) Non-Af 4 L, BUN/Creatinine Ratio 7.7 L, Glucose 167 H, Calcium 8.3 L 06/05/23 06:28: POC Glucose 150 H Micro: Microbiology 05/31/23 07:36 Urine, Catheterized Urine Culture - Final Escherichia coli Physical Exam Const alert, oriented x3 and no apparent distress General Appearance: cooperative HEENT normocephalic, head/scalp atraumatic, EAC's normal and moist oral mucous membranes Eyes PERRL and EOMs intact bilaterally Neck no lymphadenopathy, supple and no JVD Lymph Lymphatic: no lymphadenopathy noted Resp normal respiratory effort and clear to auscultation bilaterally Cardio regular rate, regular rhythm, S1 normal heart sound, S2 normal heart sound and no murmurs GI GI Narrative: abdominal binder in place, minimally tender, adequate bowel sounds. Extremity normal capillary refill, no clubbing, cyanosis or edema and no calf tenderness General Extremity: no tenderness to palpation of joints or extremities Skin Skin Narrative: AV fistula in E, having dialysis. General Skin Exam: no breakdown Neuro CN's II-XII intact bilaterally, no focal motor deficits, no sensory deficits noted and deep tendon reflexes 2+ bilaterally Motor Exam: strength 5/5 throughout and general weakness Psych thought process normal and cooperative Appearance: appropriate Assessment & Plan Assessment/Plan (1) Incarcerated incisional hernia: PLAN: Plan #Incarcerated ventral hernia s/p diagnostic laparoscopy converted to laparotomy, lysis of adhesions and primary repair of small bowel enterotomy on 05/31/2023/ has abdominal binder in place started on clear liquid diet; to be advanced as per general surgery #ESRD on dialysis MWF. Was getting dialysis during my review today nephrology on board. #UTI Urinalysis showed more than 100,000 gram-negative rods. She was initially of antibiotics due to low clinical suspicion for clinically significant infection. Urine cultures grew E. coli resistant to Levaquin and sensitive to carbapenems. Patient on IV meropenem. However IV meropenem was discontinued as she lost IV access and she was given a dose of fosfomycin x1 on 06/04/2023, to have repeat dose after dialysis on 06/05/2023. #Anemia Hemoglobin is 8.2 with a baseline of around 10-11. Likely due to ESRD. On iron supplements. #Type 2 diabetes mellitus Insulin sliding scale. Accu-Cheks ACHS. #Hypothyroidism: On Synthroid #Hypertension: On lisinopril and clonidine as well as amlodipine #DVT prophylaxis: SCDs Charges/Coding Visit Charges Inpatient E&M: 56523 Subs Hosp L2
--- NOTE | 2023-06-05 11:46 | PN.RENAL_ITS ---
Subjective Subjective tolerated dialysis well. Potaqssium stable. still with incisional pain Objective Data Objective Data Vital Signs: Vital Signs Temp Pulse Resp BP Pulse Ox O2 Del Method O2 Flow Rate 96.9 F L 91 14 130/42 H 96 Room Air 2 06/05/23 10:57 06/05/23 10:57 06/05/23 10:57 06/05/23 10:57 06/05/23 10:57 06/05/23 10:57 06/05/23 10:11 Oxygen Flow Rate (L/min) 2 Oxygen Delivery Method [2] Nasal Cannula Oxygen Delivery Method [1 ( Nasal Cannula Initial Baseline)] Oxygen Delivery Method Room Air Weight: 68.1 kg Body Mass Index (BMI) 26.6 Intake & Output: Intake and Output for Last 24 Hours 06/03/23 06/04/23 06/05/23 23:59 23:59 23:59 Intake Total 1430 / 1622 862 / 1022 210 / 210 Output Total 2100 / 2100 400 / 400 1700 / 1700 Balance -670 / -478 462 / 622 -1490 / -1490 Lab / Micro Data 06/05/23 05:21 06/05/23 05:21 Labs: Laboratory Results - last 24 hr 06/04/23 16:42: POC Glucose 203 H 06/04/23 21:25: POC Glucose 133 H 06/05/23 05:21: WBC 4.6, RBC 2.60 L, Hgb 8.2 L, Hct 26.7 L, MCV 102.7 H, MCH 31.5, MCHC 30.7 L, RDW Std Deviation 47.8 H, RDW Coeff of Alvina 13.0, Plt Count 194, MPV 9.0, Immature Gran % (Auto) 1.500 H, Neut % (Auto) 64.4, Lymph % (Auto) 19.3, [place] % (Auto) 10.8 H, Eos % (Auto) 2.9, Baso % (Auto) 1.1 H, Absolute Neuts (auto) 2.9, Absolute Lymphs (auto) 0.88, Nucleated RBC % 0, Sodium 139, Potassium 4.6, Chloride 102, Carbon Dioxide 27.0, Anion Gap 10, BUN 85 H, Creatinine 11.00 H*, Estim Creat Clear Calc 4.56, Est GFR (MDRD) Af Amer 5 L, Est GFR (MDRD) Non-Af 4 L, BUN/Creatinine Ratio 7.7 L, Glucose 167 H, Calcium 8.3 L 06/05/23 06:28: POC Glucose 150 H Micro: Microbiology 05/31/23 07:36 Urine, Catheterized Urine Culture - Final Escherichia coli Physical Exam Const alert and oriented x3 Resp clear to auscultation bilaterally GI GI Narrative: tender diffuse Extremity no clubbing, cyanosis or edema Assessment & Plan Assessment/Plan (1) ESRD (end stage renal disease) on dialysis: PLAN: HD MWF at [facility] Dr Webb primary development executive. Dialysis today (2) Incarcerated ventral hernia: PLAN: s/p laparotomy, RADHA (3) DM type 2 causing ESRD: PLAN: sugars stable on insulin at home (4) Hypertension: PLAN: stable bp (5) Hyperkalemia: PLAN: resolved (6) Anemia of chronic disease: PLAN: LEANA on dialysis
--- NOTE | 2023-06-05 12:37 | NURSING ---
patient's dialysis access arm VERNON-graft demonstrates swelling consistent with possible stenosis. graft functions well w/ pos thrill/bruit. pt states gets fistulagram every 3-4 months & has been @4mos since last fistulagram. This RN discussed with attending stave and bolt equalizer, Dr. Julianna Gee & communicated findings to patient's chronic dialysis clinic ([facility])
[2023-06-05 12:59] LABS: Bedside Glucose 146 mg/dL (74-106)
[2023-06-05] MEDS: Acetaminophen 325 MG Tablet 650 MG PO ×2 (13:48→20:02)
[2023-06-05] MEDS: FOSFOMYCIN TROMETHAMINE 3 GM PACKET PO (16:35)
[2023-06-05] MEDS: Insulin Lispro 100 UNIT/ML INSULN.PEN SC ×2 (16:45→21:33)
[2023-06-05 17:52] LABS: Bedside Glucose 203 mg/dL (74-106)
[2023-06-05] MEDS: Atorvastatin Calcium 40 MG Tablet PO (21:32)
[2023-06-05] MEDS: Clonidine HCl 0.1 MG, Clonidine HCl 0.2 MG 0.3 MG PO (21:33)
[2023-06-05 21:44] LABS: Bedside Glucose 179 mg/dL (74-106)
[2023-06-06 02:54] VITALS: BP 118/53; PULSE 72; RESP 16; TEMP 36.6; O2SAT 96
[2023-06-06] MEDS: oxyCODONE 5 MG Tablet PO ×2 (02:59→10:14)
[2023-06-06] MEDS: Acetaminophen 325 MG Tablet 650 MG PO (03:00)
[2023-06-06] MEDS: Levothyroxine 125 MCG Tablet PO (05:57)
[2023-06-06 06:16] LABS: Bedside Glucose 205 mg/dL (74-106)
--- NOTE | 2023-06-06 06:27 | NURSING ---
Documentation from Brandi BARROS reviewed. This RN oversaw patients this shift and agree with her findings.
[2023-06-06] MEDS: Insulin Lispro 100 UNIT/ML INSULN.PEN SC ×2 (06:44→11:33)
[2023-06-06] MEDS: 0.9% Saline Lock 10 ML Syringe IV ×2 (06:45→10:15)
[2023-06-06 07:08] LABS: Absolute Lymphocyte Count 0.97 X10^3/uL (0.83-4.51); Absolute Neutrophil Count 2.6 X10^3/uL (2.0-7.7); Basophil# 0.04 X10^3/uL; Eosinophil# 0.13 X10^3/uL; Eosinophils% 3.1 % (0-5); Hematocrit 25.5 % (37-47); Hemoglobin 8.1 g/dL (12.0-15.0); Lymphocyte # 0.97 X10^3/ul (0.83-4.51); Lymphocyte % 23.2 % (19-41); Mean Corp Hgb Conc 31.8 g/dL (32-36); Mean Corpuscular Hgb 32.5 pg (27.0-32.0); Mean Corpuscular Volume 102.4 fL (81-99); Monocyte# 0.44 X10^3/uL; Monocyte% 10.5 % (0-10); NRBC Flagged by Analyzer 0 % (0-5); Neutrophil # 2.56 X10^3/uL (2.7-7.7); Neutrophil % 61.2 % (47-70); Platelet Count 179 K/mm3 (150-450); RBC Distribution Width CV 12.8 % (11.6-14.6); RBC Distribution Width SD 47.6 fl (35.1-43.9); Red Blood Count 2.49 M/mm3 (4.2-5.4); White Blood Count 4.2 K/mm3 (4.4-11.0)
--- NOTE | 2023-06-06 07:56 | DCINST_ITS ---
Discharge Instructions Diet Discharge Diet: Light diet - advance as tolerated Activity Discharge Activity: May Shower Lifting Restrictions: 10 pound weight restriction Dressing / Incision Call your doctor if your incision/area has: Continuous Slow Oozing, Sudden Increased Bleeding, Increased Pain/ Swelling, Increased Redness, Foul Smelling Discharge and Swelling at the incision site Call your doctor if you observe: Fever of 101 or Higher Suture Line Care: Avoid Pulling/Pushing and Avoid Pinching/Bending Cleanse incision/area with: Soap & Water Follow Up Care Please Follow Up With: Rayna Romo MD When: Please contact our office at [phone] for a follow-up in 1 week Test Results: Test results from this visit will be discussed in further detail at your follow- up appointment, if applicable. Discharge Plan Admission Admit Date/Time: 06/01/23 15:09 Primary Reason for Your Visit: Incarcerated ventral incisional hernia Attending Provider: Rayna Romo Primary Care Provider: Maldonado Denny Consulting Providers: Noelle Sanderson; Sarah Do; Sarah Abraham; Shelly Go; Elvira Martinez; Kanika Winter; Allan Hirsch; Allan Ricketts; Ge Page; Christo Alvarenga; Miguelina Quinones; Jose Guadalupe Cui; Peterson Chaney; Jhonathan Espana; Mary Gee; Harshal Trimble; Jenna Monique; Romero Walsh; Christopher Alfredo; Donavon Dykes; Racquel Mai; Byron Roque; Rhoda Reynolds NP; Arthur Armendariz; Edwige Gee Instructions Additional Instructions / Restrictions: Hernia Diet ? Start light with soups and soft bland foods. You may advance diet as tolerated. Activity ? I encourage walking. You may go up steps, one at a time. ? Do not swim or use hot tubs for 2 weeks. ? For comfort, you may use warm compresses or ice as needed for 15-20 minutes at a time. Continue to use your incentive spirometer throughout the day. Lifting ? You may lift up to 10 pounds for the first 2 weeks. You may advance to 15- 20 pounds for the next 4 weeks. Dressings/Incision ? Keep incision covered with ABD dressing to protect the incision from the binder ? Do NOT tub bathe for 1 week ? Recommend wearing the binder while up and moving. You may leave the binder open while laying down or sitting in the chair. Medications ? Anesthesia used during surgery and pain medications may cause constipation. I recommend initiating on the day of surgery a fiber supplement like, Metamucil, Citrucel, FiberCon, Benefiber, or a generic form of these medications. 1 heaping tablespoon in water daily. You may continue to utilize any bowel regimen or oral laxatives that you routinely take. ? As long as you are not intolerant to Tylenol, acetaminophen, ibuprofen, Motrin, Advil, Aleve, or similar medications, I would recommend transitioning to these [id number] medicines as soon as possible instead of continued use of narcotic pain medication. Follow up ? You should call [facility] soon after surgery, at [phone] option 1 to make a follow up appointment for 7 days from discharge date. Discharge Orders/Prescriptions Prescriptions: New oxycodone 5 mg Tablet 5 mg PO Q6H PRN PRN (Reason: Pain Score 6-10) 3 Days Qty: 10 0RF Continued aspirin [Adult Low Dose Aspirin] 81 mg tablet,delayed release (DR/EC) 81 mg PO DAILY atorvastatin 40 mg tablet 40 mg PO QHS Bethanie-Petey 0.8 mg Tablet 1 tab PO DAILY insulin aspart U-100 [Novolog FlexPen U-100 Insulin] 100 unit/mL insulin pen 8 unit SC TIDCM Qty: 0 0RF insulin detemir U-100 100 UNITS/ML insulin pen 48 unit SC QHS Qty: 0 0RF clonidine HCl 0.3 mg tablet 0.3 mg PO QHS amlodipine 5 mg tablet 5 mg PO DAILY lisinopril 40 mg tablet 40 mg PO DAILY Velphoro 500 mg tablet,chewable 500 mg PO TID levothyroxine 125 mcg tablet 125 mcg PO DAILY Referrals / Follow Up: Rayna Romo MD [Med Staff - Active Staff] - (Please call to schedule an appointment with our office for 1 week from discharge date) Maldonado Denny MD [Primary Care Provider] - Disposition Disposition (needs filled in before D/C Order can be placed): Home, Self Care
[2023-06-06 08:00] LABS: Anion Gap 6 (5-15); BUN 56 mg/dL (7-18); BUN/Creat Ratio 6.7 RATIO (10-20); Chloride 102 mmol/L (98-107); Creatinine, Serum 8.36 mg/dL (0.55-1.02); EST Glomerular Filtration Rate 5 mL/min (>60); Est Glom Filt Rate - Afr Amer 6 mL/min (>60); Estimated Creatinine Clearance 5.99 ml/min; Glucose 234 mg/dL (74-106); Potassium 4.5 mmol/L (3.5-5.1); Sodium Level 136 mmol/L (136-145)
--- NOTE | 2023-06-06 08:04 | PCM.DC.SUM ---
Providers Date of Admission: 06/01/23 Primary Care Physician: Dr. Maldonado Denny MD Consultations 05/31/23 14:26 Consult: Hospitalist Routine Consulting Provider: Tanisha Negron Reason for Consult: Medical management, dialysis patient EMERGENT Consult: No Notified: Yes Date Notified: 05/31/23 Time Notified: 11:46 Method of Notification: Text Consult: Nephrology Routine Consulting Provider: Edwige Gee Reason for Consult: Dialysis patient in need of dialysis EMERGENT Consult: No Notified: Yes Date Notified: 05/31/23 Time Notified: 12:06 Method of Notification: Text Reason For Visit: SMALL BOWEL OBSTRUCTION Diagnosis Discharge Diagnosis (1) ESRD (end stage renal disease) on dialysis: Status: Chronic Code(s): N18.6 - End stage renal disease; Z99.2 - Dependence on renal dialysis (2) Incarcerated ventral hernia: Status: Deleted Code(s): K43.6 - Other and unspecified ventral hernia with obstruction, without gangrene (3) DM type 2 causing ESRD: Status: Chronic Code(s): E11.22 - Type 2 diabetes mellitus with diabetic chronic kidney disease; N18.6 - End stage renal disease (4) Hypertension: Status: Chronic Code(s): I10 - Essential (primary) hypertension (5) Hyperkalemia: Status: Acute Code(s): E87.5 - Hyperkalemia (6) Anemia of chronic disease: Status: Chronic Code(s): D63.8 - Anemia in other chronic diseases classified elsewhere (7) Incarcerated incisional hernia: Status: Resolved Code(s): K43.0 - Incisional hernia with obstruction, without gangrene Medications at Discharge Home Medications aspirin 81 mg tablet,delayed release (Adult Low Dose Aspirin) 81 mg PO DAILY heart health 08/14/18 atorvastatin 40 mg tablet 40 mg PO QHS CHOLESTEROL 08/14/18 vitamin B complex-vitamin C-folic acid 0.8 mg tablet (Bethanie-Petey) 1 tab PO DAILY SUPPLEMENT 01/11/21 insulin aspart U-100 100 unit/mL (3 mL) subcutaneous pen (Novolog FlexPen U-100 Insulin aspart) 8 unit (0.08 mL) subcut TIDCM insulin #0 mL 01/12/21 insulin detemir U-100 100 unit/mL (3 mL) subcutaneous pen 48 unit (0.48 mL) subcut QHS diabetes #0 mL 01/12/21 amlodipine 5 mg tablet 5 mg PO DAILY BLOOD PRESSURE 05/31/23 clonidine HCl 0.3 mg tablet 0.3 mg PO QHS BLOOD PRESSURE 05/31/23 levothyroxine 125 mcg tablet 125 mcg PO DAILY THYROID 05/31/23 lisinopril 40 mg tablet 40 mg PO DAILY BLOOD PRESSURE 05/31/23 sucroferric oxyhydroxide 500 mg chewable tablet (Velphoro) 500 mg PO TID PHOSPHATE BINDER 05/31/23 oxycodone 5 mg tablet 5 mg PO Q6H PRN PRN Pain Score 6-10 3 days #10 tabs 06/06/23 Hospital Course Operations - (Diagnostic laparoscopy converted to laparotomy, lysis of adhesions, primary repair of small bowel enterotomy) Procedures Dialysis (Last dialysis treatment was 06/05/23; inpatient) Summary of Care Provided Minutes Spent on Discharge: 20 Hospital Course: Patient is a 58 y/o F who presents with a 5 day history of abdominal pain, nausea, vomiting. Patient states on Monday she started with nausea and had some vomiting with associated right-sided abdominal discomfort. Patient notes she has had constipation since last week and has passed a few bouts of flatus which is not normal for her. She also notes her appetite has decreased also. She thought possibly this was a virus. She notes her symptoms continued over the weekend. Patient noted yesterday they had an appointment at [facility] for liver transplant. She notes they performed an abdominal exam which caused her abdomen to become even more painful. Patient notes she has a known multiple hernias since her colostomy reversal in 2006. Patient notes she has not been evaluated by any surgeon to have her hernias repaired. Patient has a right upper extremity fistula created by Dr. Thomas at [facility]. She dialyzes on Monday, Monday and Monday. Patient's surgical history includes open cholecystectomy in 1979's and open appendectomy in 1989's. 2005, exploratory laparotomy with perforation of bowel and colostomy creation. In 2006, patient had a colostomy takedown by Dr. Thomson at [place]. CT scan of the abdomen demonstrated moderate to large ventral hernia containing dilated small bowel loops. Early small bowel obstruction. An attempt was made to reduce the hernia in the emergency room. Reduction of the hernia was unable to be successfully completed. Dr. Romo decided to perform a Diagnostic laparoscopy converted to laparotomy, lysis of adhesions, primary repair of small bowel enterotomy emergently on 05/31/23. Patient tolerated the procedure well. Patient was also found to have a urinary tract infection and was treated with Meropenem, until IV access was lost, and fosfomycin during dialysis x 2 days. Urine cultures grew E. Coli resistant to Levaquin and sensitive to carbapenems. Hospitalist and nephrology were consulted to assist in management of patient's medical care and dialysis treatments. Upon discharge, patient is having positive flatus and bowel movements. She is tolerating a regular renal diet without nausea, vomiting. She notes slight incisional discomfort which is controlled with medication. It has been discussed with the patient to continue to wear her abdominal binder when up and active. She is to follow-up with Dr. Romo in 1 week from discharge. Physical Exam GI GI Narrative: Abdomen- soft, non-distended, slight tenderness near the incision. no erythema or infection noted. Incision c/d/i. Federico intact. ABD dressing placed back over the incision followed by securing of the abdominal binder. Positive bowel sounds. Weight / BMI Weight Weight: 150 lb 2.157 oz Body Mass Index (BMI) 26.6 ABG / Lab / Microbiology Data 06/06/23 05:57 06/06/23 05:57 Laboratory: Laboratory Results - last 24 hr 06/05/23 11:07: POC Glucose 146 H 06/05/23 16:40: POC Glucose 203 H 06/05/23 21:25: POC Glucose 179 H 06/06/23 05:54: POC Glucose 205 H 06/06/23 05:57: WBC 4.2 L, RBC 2.49 L, Hgb 8.1 L, Hct 25.5 L, MCV 102.4 H, MCH 32.5 H, MCHC 31.8 L, RDW Std Deviation 47.6 H, RDW Coeff of Alvina 12.8, Plt Count 179, MPV 9.0, Immature Gran % (Auto) 1.000 H, Neut % (Auto) 61.2, Lymph % (Auto) 23.2, [place] % (Auto) 10.5 H, Eos % (Auto) 3.1, Baso % (Auto) 1.0, Absolute Neuts (auto) 2.6, Absolute Lymphs (auto) 0.97, Nucleated RBC % 0, Sodium 136, Potassium 4.5, Chloride 102, Carbon Dioxide 28.0, Anion Gap 6, BUN 56 H, Creatinine 8.36 H*, Estim Creat Clear Calc 5.99, Est GFR (MDRD) Af Amer 6 L, Est GFR (MDRD) Non-Af 5 L, BUN/Creatinine Ratio 6.7 L, Glucose 234 H, Calcium 8.0 L Microbiology: Microbiology 05/31/23 07:36 Urine, Catheterized Urine Culture - Final Escherichia coli D/C Instructions Discharge Diet: Light diet - advance as tolerated Call your doctor if your incision/area has: Continuous Slow Oozing, Sudden Increased Bleeding, Increased Pain/ Swelling, Increased Redness, Foul Smelling Discharge and Swelling at the incision site Call your doctor if you observe: Fever of 101 or Higher Suture Line Care: Avoid Pulling/Pushing and Avoid Pinching/Bending Cleanse incision/area with: Soap & Water Please Follow Up With: Rayna Romo MD When: Please contact our office at [phone] for a follow-up in 1 week Meaningful Use Info Meaningful Use Diagnoses (Choose all that apply): None applicable Discharge Plan Admission Admit Date/Time: 06/01/23 15:09 Primary Reason for Your Visit: Incarcerated ventral incisional hernia Attending Provider: Rayna Romo Primary Care Provider: Maldonado Denny Consulting Providers: Noelle Sanderson; Sarah Do; Sarah Abraham; Shelly Go; Elvira Martinez; Kanika Winter; Allan Hirsch; Allan Ricketts; Ge Page; Christo Alvarenga; Miguelina Quinones; Jose Guadalupe Cui; Peterson Chaney; Jhonathan Espana; Mary Gee; Harshal Trimble; Jenna Monique; Romero Walsh; Christopher Alfredo; Donavon Dykes; Racquel Mai; Byron Roque; Rhoda Reynolds NP; Arthur Armendariz; Edwige Gee Instructions Additional Instructions / Restrictions: Hernia Diet ? Start light with soups and soft bland foods. You may advance diet as tolerated. Activity ? I encourage walking. You may go up steps, one at a time. ? Do not swim or use hot tubs for 2 weeks. ? For comfort, you may use warm compresses or ice as needed for 15-20 minutes at a time. Continue to use your incentive spirometer throughout the day. Lifting ? You may lift up to 10 pounds for the first 2 weeks. You may advance to 15- 20 pounds for the next 4 weeks. Dressings/Incision ? Keep incision covered with ABD dressing to protect the incision from the binder ? Do NOT tub bathe for 1 week ? Recommend wearing the binder while up and moving. You may leave the binder open while laying down or sitting in the chair. Medications ? Anesthesia used during surgery and pain medications may cause constipation. I recommend initiating on the day of surgery a fiber supplement like, Metamucil, Citrucel, FiberCon, Benefiber, or a generic form of these medications. 1 heaping tablespoon in water daily. You may continue to utilize any bowel regimen or oral laxatives that you routinely take. ? As long as you are not intolerant to Tylenol, acetaminophen, ibuprofen, Motrin, Advil, Aleve, or similar medications, I would recommend transitioning to these kalb-egl-[id number] medicines as soon as possible instead of continued use of narcotic pain medication. Follow up ? You should call [facility] soon after surgery, at [phone] option 1 to make a follow up appointment for 7 days from discharge date. Discharge Orders/Prescriptions Prescriptions: New oxycodone 5 mg Tablet 5 mg PO Q6H PRN PRN (Reason: Pain Score 6-10) 3 Days Qty: 10 0RF Continued aspirin [Adult Low Dose Aspirin] 81 mg tablet,delayed release (DR/EC) 81 mg PO DAILY atorvastatin 40 mg tablet 40 mg PO QHS Bethanie-Petey 0.8 mg Tablet 1 tab PO DAILY insulin aspart U-100 [Novolog FlexPen U-100 Insulin] 100 unit/mL insulin pen 8 unit SC TIDCM Qty: 0 0RF insulin detemir U-100 100 UNITS/ML insulin pen 48 unit SC QHS Qty: 0 0RF clonidine HCl 0.3 mg tablet 0.3 mg PO QHS amlodipine 5 mg tablet 5 mg PO DAILY lisinopril 40 mg tablet 40 mg PO DAILY Velphoro 500 mg tablet,chewable 500 mg PO TID levothyroxine 125 mcg tablet 125 mcg PO DAILY Referrals / Follow Up: Rayna Romo MD [Med Staff - Active Staff] - (Please call to schedule an appointment with our office for 1 week from discharge date) Maldonado Denny MD [Primary Care Provider] - Disposition Disposition (needs filled in before D/C Order can be placed): Home, Self Care Charges/Coding Visit Charges Inpatient E&M: 95635 Disch Hosp (no charge; post-op)
--- NOTE | 2023-06-06 09:31 | CASEMGMT ---
JESSICA MORALES Follow-up: This RN CM met with pt at chairside. Pt states she has the support of her , daughter and other family members at home. Pt requests a walker but does state she has been walking without difficulty in her room. This RN ANDREW spoke with pt's RN who states pt has ambulated in the room with SBA and without walker. Will obtain signed script from provider and walker for pt per her request and to provide some additional stability with ambulation upon returning home. Pt states [facility] is ok to provide DME. DC Plan: Return home with family support and walker. Nathan Thomas RN CM
--- NOTE | 2023-06-06 09:33 | PN.RENAL_ITS ---
Subjective Subjective feeling better, tolerating diet Objective Data Objective Data Vital Signs: Vital Signs Temp Pulse Resp BP Pulse Ox O2 Del Method O2 Flow Rate 97.9 F 72 16 118/53 L 96 Room Air 2 06/06/23 02:54 06/06/23 02:54 06/06/23 02:54 06/06/23 02:54 06/06/23 02:54 06/06/23 03:20 06/05/23 10:11 Oxygen Flow Rate (L/min) 2 Oxygen Delivery Method [2] Nasal Cannula Oxygen Delivery Method [1 ( Nasal Cannula Initial Baseline)] Oxygen Delivery Method Room Air Weight: 68.1 kg Body Mass Index (BMI) 26.6 Intake & Output: Intake and Output for Last 24 Hours 06/04/23 06/05/23 06/06/23 23:59 23:59 23:59 Intake Total 862 / 1022 320 / 560 290 / 290 Output Total 400 / 400 1701 / 1701 0 / 0 Balance 462 / 622 -1381 / -1141 290 / 290 Lab / Micro Data 06/06/23 05:57 06/06/23 05:57 Labs: Laboratory Results - last 24 hr 06/05/23 11:07: POC Glucose 146 H 06/05/23 16:40: POC Glucose 203 H 06/05/23 21:25: POC Glucose 179 H 06/06/23 05:54: POC Glucose 205 H 06/06/23 05:57: WBC 4.2 L, RBC 2.49 L, Hgb 8.1 L, Hct 25.5 L, MCV 102.4 H, MCH 32.5 H, MCHC 31.8 L, RDW Std Deviation 47.6 H, RDW Coeff of Alvina 12.8, Plt Count 179, MPV 9.0, Immature Gran % (Auto) 1.000 H, Neut % (Auto) 61.2, Lymph % (Auto) 23.2, [place] % (Auto) 10.5 H, Eos % (Auto) 3.1, Baso % (Auto) 1.0, Absolute Neuts (auto) 2.6, Absolute Lymphs (auto) 0.97, Nucleated RBC % 0, Sodium 136, Potassium 4.5, Chloride 102, Carbon Dioxide 28.0, Anion Gap 6, BUN 56 H, Creatinine 8.36 H*, Estim Creat Clear Calc 5.99, Est GFR (MDRD) Af Amer 6 L, Est GFR (MDRD) Non-Af 5 L, BUN/Creatinine Ratio 6.7 L, Glucose 234 H, Calcium 8.0 L Micro: Microbiology 05/31/23 07:36 Urine, Catheterized Urine Culture - Final Escherichia coli Physical Exam Const alert and oriented x3 Resp clear to auscultation bilaterally Cardio regular rate GI GI Narrative: less tender Palpation: soft Extremity Extremity Narrative: rt arm swelling chronic General Extremity: AV fistula Assessment & Plan Assessment/Plan (1) ESRD (end stage renal disease) on dialysis: PLAN: HD MWF at [facility] Dr Webb primary shift foreman. Fg as outpt for access arm swelling. (2) Incarcerated ventral hernia: PLAN: s/p laparotomy, RADHA (3) DM type 2 causing ESRD: PLAN: sugars stable on insulin at home (4) Hypertension: PLAN: stable bp (5) Hyperkalemia: PLAN: resolved (6) Anemia of chronic disease: PLAN: LEANA on dialysis
--- NOTE | 2023-06-06 09:47 | PHA.DC.MC.R ---
Pharmacy [facility] has performed discharge medication reconciliation and counseling for this patient. The patient's discharge medication list was reviewed for discrepancies and discrepancies were resolved. The patient was counseled on the following discharge medications and changes in medications for homegoing were reviewed. The Reason for Use, instructions for use, and potential side effects were reviewed for all new medications. The patient's questions regarding all of their medications were answered. 1. Oxycodone 5 mg PO Q6H PRN pain 6-10/10 The patient was able to verbally demonstrate an understanding of their discharge medications. Medications at Discharge Home Medications aspirin 81 mg tablet,delayed release (Adult Low Dose Aspirin) 81 mg PO DAILY heart health 08/14/18 atorvastatin 40 mg tablet 40 mg PO QHS CHOLESTEROL 08/14/18 vitamin B complex-vitamin C-folic acid 0.8 mg tablet (Bethanie-Petey) 1 tab PO DAILY SUPPLEMENT 01/11/21 insulin aspart U-100 100 unit/mL (3 mL) subcutaneous pen (Novolog FlexPen U-100 Insulin aspart) 8 unit (0.08 mL) subcut TIDCM insulin #0 mL 01/12/21 insulin detemir U-100 100 unit/mL (3 mL) subcutaneous pen 48 unit (0.48 mL) subcut QHS diabetes #0 mL 01/12/21 amlodipine 5 mg tablet 5 mg PO DAILY BLOOD PRESSURE 05/31/23 clonidine HCl 0.3 mg tablet 0.3 mg PO QHS BLOOD PRESSURE 05/31/23 levothyroxine 125 mcg tablet 125 mcg PO DAILY THYROID 05/31/23 lisinopril 40 mg tablet 40 mg PO DAILY BLOOD PRESSURE 05/31/23 sucroferric oxyhydroxide 500 mg chewable tablet (Velphoro) 500 mg PO TID PHOSPHATE BINDER 05/31/23 oxycodone 5 mg tablet 5 mg PO Q6H PRN PRN Pain Score 6-10 3 days #10 tabs 06/06/23
[2023-06-06 09:56] VITALS: BP 109/34; PULSE 73; RESP 16; TEMP 36.5; O2SAT 95
[2023-06-06] MEDS: amLODIPine 5 MG Tablet PO (10:14)
[2023-06-06] MEDS: Lisinopril 40 MG Tablet PO (10:14)
[2023-06-06] MEDS: Docusate Sodium 100 MG Capsule PO (10:14)
[2023-06-06] MEDS: Pantoprazole Sodium 40 MG in 0.9% Normal Saline (100mL MB+) 100 ML 330 MG IV (10:15)
--- NOTE | 2023-06-06 10:25 | PN_ITS ---
Subjective Subjective Patient seen and examined. She feels well and has no active complaints. Pain is well controlled. Review of systems is otherwise negative. Objective Data Objective Data Vital Signs: Vital Signs Temp Pulse Resp BP Pulse Ox O2 Del Method O2 Flow Rate 97.7 F L 73 16 109/34 L 95 Room Air 2 06/06/23 09:56 06/06/23 09:56 06/06/23 09:56 06/06/23 09:56 06/06/23 09:56 06/06/23 09:59 06/05/23 10:11 Oxygen Flow Rate (L/min) 2 Oxygen Delivery Method [2] Nasal Cannula Oxygen Delivery Method [1 ( Nasal Cannula Initial Baseline)] Oxygen Delivery Method Room Air Weight: 150 lb 2.157 oz Body Mass Index (BMI) 26.6 Intake & Output: Intake and Output for Last 24 Hours 06/04/23 06/05/23 06/06/23 23:59 23:59 23:59 Intake Total 862 / 1022 320 / 560 290 / 290 Output Total 400 / 400 1701 / 1701 0 / 0 Balance 462 / 622 -1381 / -1141 290 / 290 Lab / Micro Data 06/06/23 05:57 06/06/23 05:57 Labs: Laboratory Results - last 24 hr 06/05/23 11:07: POC Glucose 146 H 06/05/23 16:40: POC Glucose 203 H 06/05/23 21:25: POC Glucose 179 H 06/06/23 05:54: POC Glucose 205 H 06/06/23 05:57: WBC 4.2 L, RBC 2.49 L, Hgb 8.1 L, Hct 25.5 L, MCV 102.4 H, MCH 32.5 H, MCHC 31.8 L, RDW Std Deviation 47.6 H, RDW Coeff of Alvina 12.8, Plt Count 179, MPV 9.0, Immature Gran % (Auto) 1.000 H, Neut % (Auto) 61.2, Lymph % (Auto) 23.2, [place] % (Auto) 10.5 H, Eos % (Auto) 3.1, Baso % (Auto) 1.0, Absolute Neuts (auto) 2.6, Absolute Lymphs (auto) 0.97, Nucleated RBC % 0, Sodium 136, Potassium 4.5, Chloride 102, Carbon Dioxide 28.0, Anion Gap 6, BUN 56 H, Creatinine 8.36 H*, Estim Creat Clear Calc 5.99, Est GFR (MDRD) Af Amer 6 L, Est GFR (MDRD) Non-Af 5 L, BUN/Creatinine Ratio 6.7 L, Glucose 234 H, Calcium 8.0 L Micro: Microbiology 05/31/23 07:36 Urine, Catheterized Urine Culture - Final Escherichia coli Physical Exam Const alert, oriented x3 and no apparent distress General Appearance: cooperative HEENT normocephalic, head/scalp atraumatic, EAC's normal and moist oral mucous membranes Eyes PERRL and EOMs intact bilaterally Neck no lymphadenopathy, supple and no JVD Lymph Lymphatic: no lymphadenopathy noted Resp normal respiratory effort, normal air movement and clear to auscultation bilaterally Cardio regular rate, regular rhythm, S1 normal heart sound, S2 normal heart sound and no murmurs GI GI Narrative: abdominal binder in place, minimally tender, adequate bowel sounds. Extremity normal capillary refill, no clubbing, cyanosis or edema and no calf tenderness General Extremity: no tenderness to palpation of joints or extremities Skin Skin Narrative: AV fistula in LUE, having dialysis. General Skin Exam: no breakdown Neuro CN's II-XII intact bilaterally, no focal motor deficits, no sensory deficits noted and deep tendon reflexes 2+ bilaterally Motor Exam: strength 5/5 throughout and general weakness Psych thought process normal and cooperative Appearance: appropriate Assessment & Plan Assessment/Plan (1) Incarcerated incisional hernia: PLAN: Plan #Incarcerated ventral hernia * s/p diagnostic laparoscopy converted to laparotomy, lysis of adhesions and primary repair of small bowel enterotomy on 05/31/2023/ * has abdominal binder in place * tolerating a renal diet. #ESRD * on dialysis MWF. Was getting dialysis during my review today * nephrology on board. * #UTI * Urinalysis showed more than 100,000 gram-negative rods. * She was initially of antibiotics due to low clinical suspicion for clinically significant infection. Urine cultures grew E. coli resistant to Levaquin and sensitive to carbapenems. Patient on IV meropenem. * However IV meropenem was discontinued as she lost IV access and she was given a dose of fosfomycin x1 on 06/04/2023, to have repeat dose after dialysis on 06/05/2023. * #Anemia * Hemoglobin is 8.1 today, with a baseline of around 10-11. * Likely due to ESRD and also blood loss from surgery. * On iron supplements. * To follow up with PCP for further workup of anemia as needed * #Type 2 diabetes mellitus * Insulin sliding scale. Accu-Cheks ACHS. * #Hypothyroidism: On Synthroid #Hypertension: On lisinopril and clonidine as well as amlodipine #DVT prophylaxis: SCDs Disposition: patient ok for dc from hospitalist standpoint. Charges/Coding Visit Charges Inpatient E&M: 43493 Subs Hosp L2
--- NOTE | 2023-06-06 10:50 | CASEMGMT ---
JESSICA MORALES Follow-up: Script for FWW obtained from ELSY Sarmiento and submitted via [facility] to [facility]. Confirmed with Radha that referral was received and walker will be brought to pt's room. Nathan Thomas RN CM
[2023-06-06 11:59] LABS: Bedside Glucose 220 mg/dL (74-106)
== END 2023-06-06 14:09 | disposition home or self-care (01) | DRG 329 ==
LOC: ED 12:26 → PCU 12:29
PROVIDERS: Internal Medicine; Internal Medicine Nephrology; Physician Assistant; Admitting Provider Surgery; Emergency Provider Emergency Medicine; PCP Internal Medicine; Visit Provider Surgery
PROC: (CPT 49320; principal; 2023-05-31 17:00)
DX: K43.0 Incisional hernia with obstruction, without gangrene (principal); N18.6 End stage renal disease; I12.0 Hypertensive chronic kidney disease with stage 5 chronic kidney disease or end stage renal disease; N39.0 Urinary tract infection, site not specified; D63.1 Anemia in chronic kidney disease; E11.22 Type 2 diabetes mellitus with diabetic chronic kidney disease; B96.20 Unspecified Escherichia coli [E. coli] as the cause of diseases classified elsewhere; Z99.2 Dependence on renal dialysis; Z79.4 Long term (current) use of insulin; E11.65 Type 2 diabetes mellitus with hyperglycemia; E03.9 Hypothyroidism, unspecified; F32.A Depression, unspecified; E87.5 Hyperkalemia; F41.9 Anxiety disorder, unspecified; Z53.31 Laparoscopic surgical procedure converted to open procedure; Z90.49 Acquired absence of other specified parts of digestive tract; Z79.82 Long term (current) use of aspirin; Z79.899 Other long term (current) drug therapy; Z86.73 Personal history of transient ischemic attack (TIA), and cerebral infarction without residual deficits; Z87.891 Personal history of nicotine dependence; Z23 Encounter for immunization
CPT/HCPCS: 36415; 74018; 74176; 80048; 80069; 81001; 82962; 83605; 84100; 85025; 87077; 87086; 87088; 87186; 90937; 93005; 94668; 97803; 99285; J2185; J7030; 90686; A4216; G0257; J0612; J0744; J2405

== ENCOUNTER 2025-01-28 07:50 | Inpatient (IN) | payer MEDICARE, MEDICAID, SELFPAY ==
[2025-01-28] VITALS (11 sets, daily range): BP systolic 121–166; BP diastolic 4–64; PULSE 68–92; RESP 16–22; TEMP 36.6–36.8; O2SAT 88–100; BMI 25.4; BMI 22.0
--- NOTE | 2025-01-28 08:05 | ED.VIS.DYS ---
HPI History of Present Illness Chief Complaint: Shortness of Breath Narrative Narrative: Chief complaint and HPI: Cold-like symptoms. 60-year-old female with past medical history of DM2, ESRD on HD Monday/Monday/Monday, HTN, thyroid disease presents for evaluation of cold-like symptoms. Patient states for the past week she has had rhinorrhea, cough, intermittent shortness of breath. States today she had some nausea and vomiting. Denies any abdominal pain, chest pain, fever, diarrhea. Did receive dialysis yesterday. Review of systems: See HPI Medications: As listed on the chart Allergies: As listed on the chart PFSH: Per chart Vital signs: As listed on the chart. Reviewed. Physical exam: Gen: A&O x3, NAD Head: Normocephalic, atraumatic Eyes: No sclera icterus, conjunctiva clear ENT: Moist mucous membranes Neck: Trachea midline, No JVD CV: RRR, no murmurs, no peripheral edema Resp: Lungs CTA BL but diminished in the bases, no w/r/c GI: Abd soft, non-distended, non-tender, no r/r/g Musc: Full ROM, no deformity Skin: Warm, dry Neuro: Alert, oriented, grossly intact, sensation intact Psych: Cooperative, appropriate mood and affect [facility] Medical History S/p small bowel obstruction Incarcerated incisional hernia Wears hearing aid in both ears Hypothyroidism Dialysis patient Kidney disease Former smoker Congestive heart failure (CHF) TIA (transient ischemic attack) Problem with dialysis access Hemorrhoids Acid reflux Constipation Anxiety Depression Hypertension Heart disease Diabetes Thyroid disease Home Medications ?Medication ?Instructions ?Recorded ?Last Taken ?Type aspirin 81 mg tablet,delayed 81 mg PO DAILY heart health 08/14/18 01/27/25 History release (Adult Low Dose Aspirin) atorvastatin 40 mg tablet 40 mg PO QHS CHOLESTEROL 08/14/18 01/27/25 History vitamin B complex-vitamin C-folic 1 tab PO DAILY SUPPLEMENT 01/11/21 01/27/25 History acid 0.8 mg tablet (Bethanie-Petey) levothyroxine 125 mcg tablet 125 mcg PO DAILY THYROID 05/31/23 01/27/25 History lisinopril 40 mg tablet 40 mg PO DAILY BLOOD PRESSURE 05/31/23 01/27/25 History sucroferric oxyhydroxide 500 mg 500 mg PO TID PHOSPHATE BINDER 05/31/23 01/27/25 History chewable tablet (Velphoro) amlodipine 10 mg tablet 10 mg PO DAILY 01/28/25 01/27/25 History clonidine HCl 0.2 mg tablet 0.2 mg PO BID 01/28/25 01/27/25 History insulin glargine 100 unit/mL (3 48 unit subcut QHS 01/28/25 01/27/25 History mL) subcutaneous pen (Lantus Solostar U-100 Insulin) insulin lispro 100 unit/mL 8 unit subcut .COMPLEX 01/28/25 01/27/25 History subcutaneous pen metoprolol tartrate 25 mg tablet 25 mg PO Q12H 01/28/25 01/27/25 History sumatriptan succinate 50 mg tablet 50 mg PO BID PRN migraine 01/28/25 Unknown History Allergy/AdvReac Type Severity Reaction Status Date / Time Penicillins Allergy Severe Anaphylaxis Verified 01/28/25 07:51 chlorhexidine Allergy Mild rash Verified 01/28/25 07:51 codeine Allergy Unknown Unknown Verified 01/28/25 07:51 latex Allergy Unknown Unknown Verified 01/28/25 07:51 Family History Brother Kidney disease Mother Cancer lung cancer Father Colon cancer Surgical History S/P laparotomy with lysis of adhesions Hx of arteriovenostomy for renal dialysis Hx of bilateral breast reduction surgery History of partial hysterectomy History of bowel resection Hx of appendectomy Hx of cholecystectomy Social History Smoking Status: Former smoker alcohol intake: never substance use type: does not use caffeine: Yes what type of physical activity do you participate in: none frequency: does not exercise EXAM Physical Exam Const Vital Signs: 01/28/25 07:51 01/28/25 07:58 01/28/25 08:15 Temperature 98.2 F Temperature Source Oral Pulse Rate 86 Respiratory Rate 18 Respiratory Effort Normal Respiratory Depth Normal Respiratory Pattern Normal Blood Pressure 166/4 H Blood Pressure Mean 58 Pulse Ox 95 88 Oxygen Delivery Method Room Air Room Air Room Air Oxygen Flow Rate (L/min) 01/28/25 08:18 05/27/25 08:19 Temperature Temperature Source Pulse Rate 81 Respiratory Rate 18 Respiratory Effort Respiratory Depth Respiratory Pattern Normal Blood Pressure Blood Pressure Mean Pulse Ox 95 Oxygen Delivery Method Nasal Cannula Oxygen Flow Rate (L/min) 2 MDM MDM MDM Narrative Medical decision making narrative: 60-year-old female with past medical history of DM2, ESRD on HD Monday/Monday/Monday, HTN, thyroid disease presents for evaluation of cold-like symptoms. Symptoms consist of rhinorrhea, cough, intermittent shortness of breath, nausea, vomiting. Patient received dialysis yesterday. On presentation, patient is no acute distress. Vitals are stable other than some mild hypertension. Differential diagnosis includes but not limited to viral illness, COVID-19 infection, influenza, pneumonia, electrolyte abnormality, fluid overload. Zofran ordered for nausea. Given patient is a dialysis patient we will hold off on any fluids. Patient has moist mucous membranes and no clear signs of dehydration. Her lungs are clear auscultation bilaterally but diminished in the bases. Given patient is endorsing symptomatic shortness of breath with cough will give DuoNeb for symptom relief. COVID, flu, RSV testing including basic labs and chest x-ray. CBC without leukocytosis. Patient has baseline anemia with a hemoglobin of 9.7. BMP shows baseline renal insufficiency with a creatinine of 4.48. Patient did receive dialysis yesterday. Hyperglycemia of 227. Patient is a diabetic. No anion gap. During breathing treatment patient became hypoxic but saturations quickly improved. However, patient later became hypoxic with oxygen saturation at 87/88 and therefore placed on 2 L nasal cannula with improvement. Chest x-ray was personally interpreted by in, ED physician. Chest x-ray with cardiomegaly and bilateral pleural effusions. Patient has increased vascular markings. Radiology in agreement. There is no obvious pneumonia on chest x-ray. Patient has no leukocytosis. Suspect her symptoms are likely secondary to viral illness and pleural effusions/mild CHF exacerbation. COVID, flu, RSV negative. Patient does make urine however will hold off on Lasix given her ESRD. Impression: 1. Acute hypoxia requiring nasal cannula 2. Viral syndrome 3. Mild CHF exacerbation with pleural effusion 4. History of ESRD on dialysis Lab Data Labs: Laboratory Results - last 24 hr 01/28/25 08:10 WBC 7.7 RBC 3.21 L Hgb 9.7 L Hct 29.3 L MCV 91.3 MCH 30.2 MCHC 33.1 RDW Std Deviation 42.9 RDW Coeff of Alvina 13.0 Plt Count 205 MPV 9.6 Immature Gran % (Auto) 0.800 Neut % (Auto) 75.6 H Lymph % (Auto) 16.7 L [place] % (Auto) 5.4 Eos % (Auto) 0.5 Baso % (Auto) 1.0 Absolute Neuts (auto) 5.8 Absolute Lymphs (auto) 1.29 Nucleated RBC % 0 Sodium 141 Potassium 4.1 Chloride 99 Carbon Dioxide 29.0 Anion Gap 13 BUN 19 Creatinine 4.48 H Estim Creat Clear Calc 11.98 L Est GFR (MDRD) Non-Af 11 L BUN/Creatinine Ratio 4.3 L Glucose 227 H Calcium 9.9 Radiography Diagnostic Testing: Clinical Impression(s) from Imaging Studies Chest X-Ray 01/28/25 08:30 IMPRESSION: Cardiomegaly. Bilateral pleural effusions greater greater on the right side with bibasilar dependent atelectasis and CHF. Reading Location: [place] [id number] Discharge Plan Triage Chief Complaint: Shortness of Breath ED Provider: Dave Coronado Dx/Rx/DC Orders Prescriptions: No Action aspirin [Adult Low Dose Aspirin] 81 mg tablet,delayed release (DR/EC) 81 mg PO DAILY atorvastatin 40 mg tablet 40 mg PO QHS Bethanie-Petey 0.8 mg Tablet 1 tab PO DAILY lisinopril 40 mg tablet 40 mg PO DAILY Velphoro 500 mg tablet,chewable 500 mg PO TID levothyroxine 125 mcg tablet 125 mcg PO DAILY sumatriptan succinate 50 mg tablet 50 mg PO BID PRN (Reason: migraine) clonidine HCl 0.2 mg tablet 0.2 mg PO BID amlodipine 10 mg tablet 10 mg PO DAILY insulin lispro 100 unit/mL insulin pen 8 unit SUBCUT .COMPLEX Rx Instructions: INJECT 8 UNITS SUBCUTANEOUSLY THREE TIMES DAILY BEFORE MEALS, Add 1 UNIT for each 50 mg/dl above 150. metoprolol tartrate 25 mg tablet 25 mg PO Q12H insulin glargine [Lantus Solostar U-100 Insulin] 100 unit/mL (3 mL) insulin pen 48 unit subcut QHS Primary Care Provider: Maldonado Denny Referrals: Maldonado Denny MD [Primary Care Provider] - Print Language: Ukrainian
[2025-01-28] MEDS: Ipratropium/Albuterol Sulfate 3 ML AMPUL.NEB INHALATION (08:12)
[2025-01-28] MEDS: Ondansetron 4 MG/2 ML Vial IV (08:15)
[2025-01-28 08:22] LABS: Absolute Lymphocyte Count 1.29 X10^3/uL (0.83-4.51); Absolute Neutrophil Count 5.8 X10^3/uL (2.0-7.7); Basophil# 0.08 X10^3/uL; Eosinophil# 0.04 X10^3/uL; Eosinophils% 0.5 % (0-5); Hematocrit 29.3 % (37-47); Hemoglobin 9.7 g/dL (12.0-15.0); Lymphocyte # 1.29 X10^3/ul (0.83-4.51); Lymphocyte % 16.7 % (19-41); Mean Corp Hgb Conc 33.1 g/dL (32-36); Mean Corpuscular Hgb 30.2 pg (27.0-32.0); Mean Corpuscular Volume 91.3 fL (81-99); Mean Platelet Vol. 9.6 fl (6.2-12.0); Monocyte# 0.42 X10^3/uL; Monocyte% 5.4 % (0-10); NRBC Flagged by Analyzer 0 % (0-5); Neutrophil # 5.83 X10^3/uL (2.7-7.7); Neutrophil % 75.6 % (47-70); Platelet Count 205 K/mm3 (150-450); RBC Distribution Width SD 42.9 fl (35.1-43.9); Red Blood Count 3.21 M/mm3 (4.2-5.4); White Blood Count 7.7 K/mm3 (4.4-11.0)
--- NOTE | 2025-01-28 08:30 | RAD_ITS ---
PROCEDURE: CHEST PA AND LATERAL 01/28/2025 REASON FOR EXAM: Cough and shortness of breath. TECHNIQUE: Frontal and lateral views of the chest. COMPARISON: None available. FINDINGS: Hardware: EKG electrodes are seen. Heart: Heart size is moderately enlarged. Mediastinum: The mediastinal contour is unremarkable. Lungs: Small bilateral pleural effusions with bibasilar atelectasis and CHF. Bones: Degenerative changes are identified within the thoracic spine. RAD/Chest PA and Lateral IMPRESSION: Cardiomegaly. Bilateral pleural effusions greater greater on the right side with bibasilar de pendent atelectasis and CHF. Reading Location: [facility]
[2025-01-28 08:44] LABS: Anion Gap 13 (5-15); BUN 19 mg/dL (4-19); BUN/Creat Ratio 4.3 RATIO (10-20); Calcium,Total 9.9 mg/dL (7.6-11.0); Chloride 99 mmol/L (98-108); Creatinine, Serum 4.48 mg/dL (0.70-1.20); EST Glomerular Filtration Rate 11 (>60); Estimated Creatinine Clearance 11.98 ml/min (50-250); Glucose 227 mg/dL (70-99); Potassium 4.1 mmol/L (3.3-5.1); Sodium Level 141 mmol/L (133-145)
--- NOTE | 2025-01-28 09:25 | PCM.HP.STD ---
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 Patient in addition did complain of progressive generalized weakness as well as subjective fever and chills. Patient did develop nausea and vomiting on the morning of her presentation necessitating patient presenting to the emergency department. Workup was unremarkable however patient was found to have bilateral pleural effusion on chest x-ray. Rapid COVID and flu assay came back negative. An assessment of acute congestive heart failure in addition to suspected viral syndrome made admitted to a monitored bed for further management [facility] Medical History S/p small bowel obstruction Incarcerated incisional hernia Wears hearing aid in both ears Hypothyroidism Dialysis patient Kidney disease Former smoker Congestive heart failure (CHF) TIA (transient ischemic attack) Problem with dialysis access Hemorrhoids Acid reflux Constipation Anxiety Depression Hypertension Heart disease Diabetes Thyroid disease Home Medications ?Medication ?Instructions ?Recorded ?Last Taken ?Type aspirin 81 mg tablet,delayed 81 mg PO DAILY heart health 08/14/18 01/27/25 History release (Adult Low Dose Aspirin) atorvastatin 40 mg tablet 40 mg PO QHS CHOLESTEROL 08/14/18 01/27/25 History vitamin B complex-vitamin C-folic 1 tab PO DAILY SUPPLEMENT 01/11/21 01/27/25 History acid 0.8 mg tablet (Bethanie-Pteey) levothyroxine 125 mcg tablet 125 mcg PO DAILY THYROID 05/31/23 01/27/25 History lisinopril 40 mg tablet 40 mg PO DAILY BLOOD PRESSURE 05/31/23 01/27/25 History sucroferric oxyhydroxide 500 mg 500 mg PO TID PHOSPHATE BINDER 05/31/23 01/27/25 History chewable tablet (Velphoro) amlodipine 10 mg tablet 10 mg PO DAILY 01/28/25 01/27/25 History clonidine HCl 0.2 mg tablet 0.2 mg PO BID 01/28/25 01/27/25 History insulin glargine 100 unit/mL (3 48 unit subcut QHS 01/28/25 01/27/25 History mL) subcutaneous pen (Lantus Solostar U-100 Insulin) insulin lispro 100 unit/mL 8 unit subcut .COMPLEX 01/28/25 01/27/25 History subcutaneous pen metoprolol tartrate 25 mg tablet 25 mg PO Q12H 01/28/25 01/27/25 History sumatriptan succinate 50 mg tablet 50 mg PO BID PRN migraine 01/28/25 Unknown History Allergy/AdvReac Type Severity Reaction Status Date / Time Penicillins Allergy Severe Anaphylaxis Verified 01/28/25 07:51 chlorhexidine Allergy Mild rash Verified 01/28/25 07:51 codeine Allergy Unknown Unknown Verified 01/28/25 07:51 latex Allergy Unknown Unknown Verified 01/28/25 07:51 Family History Brother Kidney disease Mother Cancer lung cancer Father Colon cancer Surgical History S/P laparotomy with lysis of adhesions Hx of arteriovenostomy for renal dialysis Hx of bilateral breast reduction surgery History of partial hysterectomy History of bowel resection Hx of appendectomy Hx of cholecystectomy Social History Smoking Status: Former smoker alcohol intake: never substance use type: does not use caffeine: Yes what type of physical activity do you participate in: none frequency: does not exercise ROS ROS Narrative GENERAL: Subjective fever and chills HEENT: Sinus drainage RESPIRATORY: Cough and shortness of breath CARDIAC: denies chest pain, palpitations, orthopnea, PND GASTROINTESTINAL: denies abdominal pain, nausea, vomiting, melena, GENITOURINARY: denies dysuria, urgency, frequency, heamaturia EXTREMITY: denies swelling MUSCULOSKELETAL: denies current joint pain or tenderness NEUROLOGIC: denies focal numbness, weakness, tingling HEMATOLOGIC: denies easy bruising and/or hemorrhage INTEGUMENT: denies rashes PSYCHIATRIC: denies suicidal or homicidal ideation Vital Signs Vital Signs Vital Signs: 01/28/25 07:51 01/28/25 07:58 01/28/25 08:15 Temperature 98.2 F Temperature Source Oral Pulse Rate 86 Respiratory Rate 18 Respiratory Effort Normal Respiratory Depth Normal Respiratory Pattern Normal Blood Pressure 166/4 H Blood Pressure Mean 58 Pulse Ox 95 88 Oxygen Delivery Method Room Air Room Air Room Air Oxygen Flow Rate (L/min) 01/28/25 08:18 01/28/25 08:19 Temperature Temperature Source Pulse Rate 81 Respiratory Rate 18 Respiratory Effort Respiratory Depth Respiratory Pattern Normal Blood Pressure Blood Pressure Mean Pulse Ox 95 Oxygen Delivery Method Nasal Cannula Oxygen Flow Rate (L/min) 2 Weight Weight: 65.317 kg Body Mass Index (BMI) 25.4 Physical Exam Narrative GENERAL: Patient appears fatigued HEENT: Atraumatic; normocephalic EYES; Anicteric, Normal Conjunctiva NECK; supple, normal thyroid, RESPIRATORY: Diminished to auscultation CARDIOVASCULAR: Regular S1 S2, GI: soft, normoactive bowel sounds, : No Renal angle tenderness; EXTREMITIES: AV fistula right arm MUSCULOSKELETAL: no muscle wasting NEURO: Awake; no lateralizing signs. SKIN: No Rash PSYCH; Flat affect Results Lab / Micro Data 01/28/25 08:10 01/28/25 08:10 Labs: Laboratory Results - last 24 hr 01/28/25 08:10: WBC 7.7, RBC 3.21 L, Hgb 9.7 L, Hct 29.3 L, MCV 91.3, MCH 30.2, MCHC 33.1, RDW Std Deviation 42.9, RDW Coeff of Alvina 13.0, Plt Count 205, MPV 9.6, Immature Gran % (Auto) 0.800, Neut % (Auto) 75.6 H, Lymph % (Auto) 16.7 L, [place] % (Auto) 5.4, Eos % (Auto) 0.5, Baso % (Auto) 1.0, Absolute Neuts (auto) 5.8, Absolute Lymphs (auto) 1.29, Nucleated RBC % 0, Sodium 141, Potassium 4.1, Chloride 99, Carbon Dioxide 29.0, Anion Gap 13, BUN 19, Creatinine 4.48 H, Estim Creat Clear Calc 11.98 L, Est GFR (MDRD) Non-Af 11 L, BUN/Creatinine Ratio 4.3 L, Glucose 227 H, Calcium 9.9 Micro: Microbiology 01/28/25 08:19 Mucosa - Nose SARS-CoV-2, Influenza & RSV (PCR) - Final Imaging Radiology Impression Chest X-Ray 01/28/25 08:30 IMPRESSION: Cardiomegaly. Bilateral pleural effusions greater greater on the right side with bibasilar dependent atelectasis and CHF. Reading Location: [facility] Assessment & Plan Assessment/Plan (1) Congestive heart failure (CHF): PLAN: Plan Patient is a 60-year-old lady with history of end-stage renal disease on hemodialysis presented with shortness of breath with associated progressive generalized weakness fever and chills 1.Acute congestive heart failure ? Unspecified at this point. Patient has been admitted to monitored bed treatment initiated with fluid restriction, strict input and output, low-sodium diet as well as diuretic therapy with furosemide. Patient is also on hemodialysis consult has been placed for nephrology for dialysis orders to help manage patient fluid status. As part of her management 2D echo was ordered to assess EF 2. Acute viral syndrome ? Patient initial evaluation with SARS-CoV-2 influenza and RSV PCR came back negative. Subsequently ordered acute viral respiratory panel to rule out other possible viral etiology. Plan is to continue with symptom management for now. 3. End-stage renal disease on hemodialysis ? Dialysis days Wednesdays and Fridays. Consult placed to nephrology for dialysis orders. Ordered daily BMP for subsequent eval 4. Anemia ? Secondary to chronic disorder monitoring H&H and transfuse if patient becomes symptomatic or hemoglobin falls below 7 5. Diabetes mellitus type II Patient is on long-acting insulin as well as scheduled short acting insulin did continue with home regimen. In addition patient was placed on Accu-Cheks a.c. and at bedtime and covered with sliding scale insulin 6. Hypertension ? Blood pressure control not optimal, resume home medication added hydralazine as needed for systolic blood pressure greater than 160 7. Hypothyroidism ? Patient is on levothyroxine home dose continued 8. Depression with anxiety ? Per history patient currently not on any treatment 9. Dyslipidemia ?Patient is on statin therapy, continued at home dose 10. DVT prophylaxis ? Subcu heparin Advance planning; did discuss with the patient and family (patient ) regarding advanced directives as well as CODE STATUS. Did explain the various scenarios involved ( FULL CODE, DNR CCA, DNR CCA with no intubation, and DNR CC and what each meant) patient opted to remain full code. Order was placed. Time spent on discussion 16 minutes. Charges/Coding Multi Select Codes Visit Charges Visit Charges: 46728 Init Hosp Hospitalists' Procedures Procedures: 10677 Advncd Care Plan 30 Min
--- NOTE | 2025-01-28 10:37 | ECHOCS_ITS ---
Reason For Study Reason For Study: Dyspnea/SOB Procedure This was a 2D Doppler, Color Flow transthoracic echocardiogram. Contrast injection was performed. Exam performed portable in patient room. Left Ventricle Normal left ventricle. The estimated ejection fraction is 55-60 %. Right Ventricle Normal right ventricle. Normal systolic function. Atria Normal left atrium. Normal right atrium. Mitral Valve There is moderate mitral annular calcification. Tricuspid Valve Normal tricuspid valve. Aortic Valve Trisinus/trileaflet aortic valve. Pulmonic Valve The pulmonic valve is not well visualized. Great Vessels The aortic root is not well visualized. Medication Diluted definity 1ml given slow IV push to enhance endocardial definition. MMode/2D Measurements & Calculations LVIDd: 5.1 cm IVSd: 1.5 cm Ao root diam: 3.0 cm LVIDs: 3.2 cm LVPWd: 0.96 cm RVDd: 3.1 cm FS: 37.4 % LAV(MOD-bp): 48.5 ml LVAd ap4: 31.3 cm2 SV(MOD-sp4): 56.4 ml LAV(MOD-bp) Indexed: 30.3 ml/m2 LVLd ap4: 8.1 cm SI(MOD-sp4): 35.3 ml/m2 LAV(MOD-sp2): 48.6 ml EDV(MOD-sp4): 96.2 ml LAV(MOD-sp4): 46.1 ml EDV(sp4-el): 103.1 ml LVAs ap4: 18.2 cm2 LVLs ap4: 6.7 cm ESV(MOD-sp4): 39.7 ml ESV(sp4-el): 41.9 ml EF(MOD-sp4): 58.7 % EF(sp4-el): 59.3 % SV(sp4-el): 61.2 ml LA A4 area: 17.4 cm2 LA dimension(2D): 4.0 cm RA A4 area: 13.8 cm2 TAPSE: 1.7 cm Time Measurements MV dec time: 0.22 sec Doppler Measurements & Calculations MV E max neno: 103.8 cm/sec Lat Peak E' Neno: 10.2 cm/sec Med Peak E' Neno: 8.2 cm/sec MV A max neno: 109.2 cm/sec E/E' lat: 10.2 E/E' med: 12.7 MV E/A: 0.95 MV V2 max: 144.5 cm/sec MV P1/2t max neno: 144.8 cm/sec Ao V2 max: 154.5 cm/sec MV max P.4 mmHg MV P1/2t: 82.5 msec Ao max P.6 mmHg MV V2 mean: 91.2 cm/sec Ao V2 mean: 119.0 cm/sec MV mean P.9 mmHg MV dec slope: 514.2 cm/sec2 Ao mean P.1 mmHg MV V2 VTI: 34.1 cm MVA(P1/2t): 2.7 cm2 Ao V2 VTI: 35.1 cm AV (velocity ratio): 0.90 LV V1 max: 137.5 cm/sec PA V2 max: 134.3 cm/sec TR max neno: 337.5 cm/sec LV V1 max P.6 mmHg PA V2 mean: 93.3 cm/sec TR max P.5 mmHg LV V1 mean P.7 mmHg LV V1 mean: 103.7 cm/sec LV V1 VTI: 31.5 cm ECHO/Echo Complete W/ Contrast Interpretation Summary The estimated ejection fraction is 55-60 %. Overall normal LV systolic function No significant valvular abnormality noted. No previous echo to compare. Ordering Physician: Allan Ricketts Performed By: Dave Holly RCS
[2025-01-28] MEDS: Metoprolol Tartrate 25 MG Tablet PO ×2 (12:09→21:31)
[2025-01-28] MEDS: Lisinopril 40 MG Tablet PO (12:09)
[2025-01-28] MEDS: Furosemide 40 MG/4 ML Vial IV ×3 (12:10→21:32)
[2025-01-28] MEDS: cloNIDine HCl 0.2 MG Tablet PO ×2 (12:10→21:31)
[2025-01-28] MEDS: amLODIPine 10 MG Tablet PO (12:10)
[2025-01-28] MEDS: Heparin Injection (Vial) 5,000 UNIT/ML VIAL 5000 UNIT SC ×2 (12:10→21:32)
[2025-01-28] MEDS: Insulin Lispro 100 UNIT/ML INSULN.PEN 8 UNIT SC (12:30)
[2025-01-28] MEDS: Insulin Lispro 100 UNIT/ML INSULN.PEN SC (12:31)
[2025-01-28 12:54] LABS: Bedside Glucose 207 mg/dL (74-106)
--- NOTE | 2025-01-28 14:19 | PCM.CONS.R ---
Assessment & Plan Assessment/Plan (1) ESRD (end stage renal disease) on dialysis: PLAN: Plan We will continue dialysis for the patient, no acute indication for FLOOR CLEANER today, next dialysis tomorrow. Will attempt to remove fluid as patient/blood pressure tolerates. Patient states her EDW is 60 kg. Chest x-ray showed bilateral pleural effusions, may have a lower EDW by time of hospital discharge. 2D echo pending. Will monitor hemoglobin trends, hemoglobin is 9.7. Blood pressure acceptable. Further orders forthcoming as hospitalization evolves, thank you for allowing us to participate in the care of Ms. Tellez. HPI Consult Data Date of Consult: 01/28/25 HPI Narrative HPI Narrative: GIULIANA TELLEZ, is a 60 F with past medical history significant for ESRD on dialysis at [facility] Monday followed by Dr. Webb who presented to the emergency room with complaints of shortness of breath. Admitted for acute congestive heart failure. Nephrology consulted in view of history of ESRD and for dialysis management. Patient complains of feeling tired today. Patient states she feels she has extra fluid on. [facility] Medical History S/p small bowel obstruction Incarcerated incisional hernia Wears hearing aid in both ears Hypothyroidism Dialysis patient Kidney disease Former smoker Congestive heart failure (CHF) TIA (transient ischemic attack) Problem with dialysis access Hemorrhoids Acid reflux Constipation Anxiety Depression Hypertension Heart disease Diabetes Thyroid disease Home Medications ?Medication ?Instructions ?Recorded ?Last Taken ?Type aspirin 81 mg tablet,delayed 81 mg PO DAILY heart health 08/14/18 01/27/25 History release (Adult Low Dose Aspirin) atorvastatin 40 mg tablet 40 mg PO QHS CHOLESTEROL 08/14/18 01/27/25 History vitamin B complex-vitamin C-folic 1 tab PO DAILY SUPPLEMENT 01/11/21 01/27/25 History acid 0.8 mg tablet (Bethanie-Petey) levothyroxine 125 mcg tablet 125 mcg PO DAILY THYROID 05/31/23 01/27/25 History lisinopril 40 mg tablet 40 mg PO DAILY BLOOD PRESSURE 05/31/23 01/27/25 History sucroferric oxyhydroxide 500 mg 500 mg PO TID PHOSPHATE BINDER 05/31/23 01/27/25 History chewable tablet (Velphoro) amlodipine 10 mg tablet 10 mg PO DAILY 01/28/25 01/27/25 History clonidine HCl 0.2 mg tablet 0.2 mg PO BID 01/28/25 01/27/25 History insulin glargine 100 unit/mL (3 48 unit subcut QHS 01/28/25 01/27/25 History mL) subcutaneous pen (Lantus Solostar U-100 Insulin) insulin lispro 100 unit/mL 8 unit subcut .COMPLEX 01/28/25 01/27/25 History subcutaneous pen metoprolol tartrate 25 mg tablet 25 mg PO Q12H 01/28/25 01/27/25 History sumatriptan succinate 50 mg tablet 50 mg PO BID PRN migraine 01/28/25 Unknown History Allergy/AdvReac Type Severity Reaction Status Date / Time Penicillins Allergy Severe Anaphylaxis Verified 01/28/25 07:51 chlorhexidine Allergy Mild rash Verified 01/28/25 07:51 codeine Allergy Unknown Unknown Verified 01/28/25 07:51 latex Allergy Unknown Unknown Verified 01/28/25 07:51 Family History Brother Kidney disease Mother Cancer lung cancer Father Colon cancer Surgical History S/P laparotomy with lysis of adhesions Hx of arteriovenostomy for renal dialysis Hx of bilateral breast reduction surgery History of partial hysterectomy History of bowel resection Hx of appendectomy Hx of cholecystectomy Social History Smoking Status: Former smoker alcohol intake: never substance use type: does not use caffeine: Yes what type of physical activity do you participate in: none frequency: does not exercise ROS ROS Narrative As in HPI Physical Exam Narrative Alert and oriented x 3, no apparent distress S1, S2, RRR Diminished breath sounds with faint rales. On O2 nasal cannula Abdomen soft, nontender No pitting edema AV fistula right upper arm positive thrill and bruit Lab / Micro Data 01/28/25 08:10 01/28/25 08:10 Labs: Laboratory Results - last 24 hr 01/28/25 08:10: WBC 7.7, RBC 3.21 L, Hgb 9.7 L, Hct 29.3 L, MCV 91.3, MCH 30.2, MCHC 33.1, RDW Std Deviation 42.9, RDW Coeff of Alvina 13.0, Plt Count 205, MPV 9.6, Immature Gran % (Auto) 0.800, Neut % (Auto) 75.6 H, Lymph % (Auto) 16.7 L, [place] % (Auto) 5.4, Eos % (Auto) 0.5, Baso % (Auto) 1.0, Absolute Neuts (auto) 5.8, Absolute Lymphs (auto) 1.29, Nucleated RBC % 0, Sodium 141, Potassium 4.1, Chloride 99, Carbon Dioxide 29.0, Anion Gap 13, BUN 19, Creatinine 4.48 H, Estim Creat Clear Calc 11.98 L, Est GFR (MDRD) Non-Af 11 L, BUN/Creatinine Ratio 4.3 L, Glucose 227 H, Calcium 9.9 01/28/25 12:18: POC Glucose 207 H Micro: Microbiology 01/28/25 08:19 Mucosa - Nose SARS-CoV-2, Influenza & RSV (PCR) - Final Imaging Radiology Impression Chest X-Ray 01/28/25 08:30 IMPRESSION: Cardiomegaly. Bilateral pleural effusions greater greater on the right side with bibasilar dependent atelectasis and CHF. Reading Location: [facility]
[2025-01-28 16:55] LABS: Bedside Glucose 108 mg/dL (74-106)
[2025-01-28 18:39] LABS: Bedside Glucose 62 mg/dL (74-106)
[2025-01-28] MEDS: 0.9% Saline Lock 10 ML Syringe IV (21:31)
[2025-01-28] MEDS: Atorvastatin Calcium 40 MG Tablet PO (21:32)
[2025-01-28 22:00] LABS: Bedside Glucose 143 mg/dL (74-106)
[2025-01-29] VITALS (18 sets, daily range): BP systolic 114–232; BP diastolic 37–60; PULSE 54–97; RESP 14–18; TEMP 35.8–36.7; O2SAT 94–100; BMI 21.9; BMI 20.8
[2025-01-29] MEDS: Furosemide 40 MG/4 ML Vial IV ×2 (06:10→22:09)
[2025-01-29] MEDS: Levothyroxine 125 MCG Tablet PO (06:10)
[2025-01-29] MEDS: 0.9% Saline Lock 10 ML Syringe IV (06:10)
[2025-01-29 06:29] LABS: Anion Gap 10 (5-15); BUN 32 mg/dL (4-19); BUN/Creat Ratio 5.7 RATIO (10-20); Carbon Dioxide 26.8 mmol/L (21.0-32.0); Chloride 100 mmol/L (98-108); Creatinine, Serum 5.62 mg/dL (0.70-1.20); EST Glomerular Filtration Rate 8 (>60); Estimated Creatinine Clearance 9.08 ml/min (50-250); Glucose 163 mg/dL (70-99); Magnesium 2.7 mg/dL (1.5-2.2); Phosphorus 2.9 mg/dL (2.7-4.5); Potassium 5.3 mmol/L (3.3-5.1); Sodium Level 137 mmol/L (133-145)
[2025-01-29 06:38] LABS: Hemoglobin A1c 7.4 % (<=5.6)
[2025-01-29 07:35] LABS: Absolute Lymphocyte Count 1.63 X10^3/uL (0.83-4.51); Absolute Neutrophil Count 3.6 X10^3/uL (2.0-7.7); Basophil# 0.08 X10^3/uL; Basophil% 1.4 % (0-1); Eosinophil# 0.06 X10^3/uL; Hematocrit 29.5 % (37-47); Hemoglobin 9.2 g/dL (12.0-15.0); Lymphocyte # 1.63 X10^3/ul (0.83-4.51); Lymphocyte % 27.9 % (19-41); Mean Corp Hgb Conc 31.2 g/dL (32-36); Mean Corpuscular Hgb 30.1 pg (27.0-32.0); Mean Corpuscular Volume 96.4 fL (81-99); Mean Platelet Vol. 10.1 fl (6.2-12.0); Monocyte# 0.43 X10^3/uL; Monocyte% 7.4 % (0-10); NRBC Flagged by Analyzer 0 % (0-5); Neutrophil # 3.61 X10^3/uL (2.7-7.7); Neutrophil % 61.6 % (47-70); Platelet Count 165 K/mm3 (150-450); RBC Distribution Width CV 13.7 % (11.6-14.6); RBC Distribution Width SD 47.8 fl (35.1-43.9); Red Blood Count 3.06 M/mm3 (4.2-5.4); White Blood Count 5.9 K/mm3 (4.4-11.0)
[2025-01-29 08:20] LABS: Bedside Glucose 162 mg/dL (74-106)
[2025-01-29] MEDS: Metoprolol Tartrate 25 MG Tablet PO ×2 (08:58→22:42)
[2025-01-29] MEDS: amLODIPine 10 MG Tablet PO (08:58)
[2025-01-29] MEDS: Lisinopril 40 MG Tablet PO (08:58)
[2025-01-29] MEDS: Folic Acid/Vitamin B Comp W-C 1 Capsule 1 CAP PO (08:58)
[2025-01-29] MEDS: Aspirin E.C. 81 MG Tablet PO (08:58)
[2025-01-29] MEDS: cloNIDine HCl 0.2 MG Tablet PO ×2 (08:58→22:09)
[2025-01-29] MEDS: Heparin Injection (Vial) 5,000 UNIT/ML VIAL 5000 UNIT SC ×2 (08:59→22:09)
[2025-01-29] MEDS: SUCROFERRIC OXYHYDROXIDE 500 MG TAB.CHEW PO ×2 (08:59→16:30)
[2025-01-29] MEDS: Insulin Lispro 100 UNIT/ML INSULN.PEN SC (09:01)
[2025-01-29] MEDS: Insulin Lispro 100 UNIT/ML INSULN.PEN 8 UNIT SC (09:01)
--- NOTE | 2025-01-29 10:05 | CASEMGMT ---
JESSICA MORALES Assessment Face to Face with patient for initial transition planning/care coordination assessment. JESSICA MORALES introduced self and role at [facility], pt voices understanding. Pt is A&Ox4 and is resting comfortably in bed and is calm. Care providers, pharmacy, and demographics verified. Admitting dx: Hypoxia LACE Strata: 2 PCP: Eduin Specialists: Jon (Nephro), Cardio in [place] but unable to recall the name Preferred [facility]: [facility] Prescription Benefit: Yes LNOK: [place] (H) Living Arrangements: Pt lives with her , daughter, ARETHA, and 2 grandchildren (Ages 4 and 1) in a single story home with a flat entrance ADLs/IADLs: Pt reports that she is entirely independent Transportation: Pt . Denies concerns DME: Functioning BGM with sufficient supplies. BP Machine. Pulse ox. FWW. Shower chair. Pt is currently requiring additional oxygen and may qualify for home oxygen use. A verbal list of local in-network DME companies were provided to the pt at this time. [facility] History with [facility] HH. History at [facility]. HD: Pt attends OP HD through [facility] [place] with a 0530 chair time. Pt states that her drives her to this. Pt?s goal: Home Plan: Home with family, follow for new oxygen needs. 6-Click score is 20. No therapy ordered at this time. Pt states that she feels safe returning home with her family once medically ready and plans to continue OP HD. Pt denies further needs at this time. CM to follow. Daniela Thomson RN, CM
[2025-01-29 10:57] LABS: Bedside Glucose 143 mg/dL (74-106)
--- NOTE | 2025-01-29 11:26 | PN.HOSP_ITS ---
Reason for Visit Reason for Visit: Diagnoses Heart failure, unspecified (01/28/25) End stage renal disease (01/28/25) Dependence on renal dialysis (01/28/25) Subjective Subjective Patient is a 60-year-old lady admitted with progressive shortness of breath diagnosed with acute congestive heart failure admitted to monitored bed. Patient is being managed. Patient was started on diuretic therapy with furosemide. Patient has history of end-stage renal disease and creatinine is up to 9.08 this a.m. and potassium 5.3. Objective Data Objective Data Vital Signs: Vital Signs Temp Pulse Resp BP Pulse Ox O2 Del Method O2 Flow Rate 97.9 F 74 16 160/52 H 100 Nasal Cannula 2 01/29/25 09:00 01/29/25 09:00 01/29/25 09:00 01/29/25 09:00 01/29/25 09:00 01/29/25 09:00 01/29/25 09:00 Oxygen Flow Rate (L/min) 2 Oxygen Delivery Method Nasal Cannula Weight: 58.241 kg Body Mass Index (BMI) 22.0 Intake & Output: Intake and Output for Last 24 Hours 01/27/25 01/28/25 01/29/25 23:59 23:59 23:59 Intake Total 600 / 600 360 / 360 Balance 600 / 600 360 / 360 Lab / Micro Data 01/29/25 07:22 01/29/25 05:36 Labs: Laboratory Results - last 24 hr 01/28/25 08:10: Hemoglobin A1c 7.4 H 01/28/25 12:18: POC Glucose 207 H 01/28/25 16:24: POC Glucose 108 H 01/28/25 18:13: POC Glucose 62 L 01/28/25 21:30: POC Glucose 143 H 01/29/25 05:36: WBC Cancelled, Corrected WBC Cancelled, RBC Cancelled, Hgb Cancelled, Hct Cancelled, MCV Cancelled, MCH Cancelled, MCHC Cancelled, RDW Std Deviation Cancelled, RDW Coeff of Alvina Cancelled, Plt Count Cancelled, MPV Cancelled, Immature Gran % (Auto) Cancelled, Neut % (Auto) Cancelled, Lymph % (Auto) Cancelled, [place] % (Auto) Cancelled, Eos % (Auto) Cancelled, Baso % (Auto) Cancelled, Absolute Neuts (auto) Cancelled, Absolute Lymphs (auto) Cancelled, Total Counted Cancelled, Neutrophils % (Manual) Cancelled, Band Neutrophils % Cancelled, Lymphocytes % (Manual) Cancelled, Monocytes % (Manual) Cancelled, Eosinophils % (Manual) Cancelled, Basophils % (Manual) Cancelled, Metamyelocytes % Cancelled, Myelocytes % Cancelled, Promyelocytes % Cancelled, Blast Cells % Cancelled, Plasma Cell % (Manual) Cancelled, Other Cells % Cancelled, Nucleated RBC % Cancelled, Nucleated RBCs/100 WBC Cancelled, Differential Comment Cancelled, Diff Path Review Cancelled, Hypersegmented Neuts Cancelled, Atypical Lymphocytes Cancelled, Reactive Lymphocytes Cancelled, Smudge Cells Cancelled, Toxic Granulation Cancelled, Toxic Vacuolation Cancelled, Dohle Bodies Cancelled, Erin Rods Cancelled, Platelet Estimate Cancelled, Plt Morphology Comment Cancelled, RBC Morphology Cancelled 01/29/25 05:36: RBC Morphology Cancelled, Polychromasia Cancelled, Hypochromasia Cancelled, Basophilic Stippling Cancelled, Anisocytosis Cancelled, Microcytosis Cancelled, Macrocytosis Cancelled, Spherocytes Cancelled, Sickle Cells Cancelled, Target Cells Cancelled, Tear Drop Cells Cancelled, Ovalocytes Cancelled, Stomatocytes Cancelled, Peterson-Mccaskill Bodies Cancelled, [place] Cells Cancelled, Bite Cells Cancelled, Crenated Cell Cancelled, Acanthocytes (Spur) Cancelled, Rouleaux Cancelled, Schistocytes Cancelled, Sodium 137, Potassium 5.3 H, Chloride 100, Carbon Dioxide 26.8, Anion Gap 10, BUN 32 H, Creatinine 5.62 H, Estim Creat Clear Calc 9.08 L*, Est GFR (MDRD) Non-Af 8 L, BUN/Creatinine Ratio 5.7 L, Glucose 163 H, Calcium 9.0, Phosphorus 2.9, Magnesium 2.7 H 01/29/25 07:22: WBC 5.9, RBC 3.06 L, Hgb 9.2 L, Hct 29.5 L, MCV 96.4 D, MCH 30.1, MCHC 31.2 L D, RDW Std Deviation 47.8 H, RDW Coeff of Alvina 13.7, Plt Count 165, MPV 10.1, Immature Gran % (Auto) 0.700, Neut % (Auto) 61.6, Lymph % (Auto) 27.9, [place] % (Auto) 7.4, Eos % (Auto) 1.0, Baso % (Auto) 1.4 H, Absolute Neuts (auto) 3.6, Absolute Lymphs (auto) 1.63, Nucleated RBC % 0 01/29/25 07:56: POC Glucose 162 H 01/29/25 10:39: POC Glucose 143 H Micro: Microbiology 01/28/25 08:19 Mucosa - Nose SARS-CoV-2, Influenza & RSV (PCR) - Final Radiography Diagnostic Testing: Radiology Impression Echocardiogram 01/28/25 10:37 Interpretation Summary The estimated ejection fraction is 55-60 %. Overall normal LV systolic function No significant valvular abnormality noted. No previous echo to compare. Ordering Physician: Allan Ricketts Performed By: Dave Holly RCS Physical Exam Narrative GENERAL: Patient appears fatigued HEENT: Atraumatic; normocephalic EYES; Anicteric, Normal Conjunctiva NECK; supple, normal thyroid, RESPIRATORY: Diminished to auscultation CARDIOVASCULAR: Regular S1 S2, GI: soft, normoactive bowel sounds, : No Renal angle tenderness; EXTREMITIES: AV fistula right arm MUSCULOSKELETAL: no muscle wasting NEURO: Awake; no lateralizing signs. SKIN: No Rash PSYCH; Flat affect Assessment & Plan Assessment/Plan (1) Congestive heart failure (CHF): PLAN: Plan Patient is a 60-year-old lady with history of end-stage renal disease on hemodialysis presented with shortness of breath with associated progressive generalized weakness fever and chills 1.Acute congestive heart failure with preserved ejection fraction ? Unspecified at this point. Patient has been admitted to monitored bed treatment initiated with fluid restriction, strict input and output, low-sodium diet as well as diuretic therapy with furosemide. Patient is also on hemodialysis consult has been placed for nephrology for dialysis orders to help manage patient fluid status. As part of her management 2D echo was ordered to assess EF ? 01/29/2025; 2D echo obtained demonstrated estimated ejection fraction of 55-60 %. Overall normal LV systolic function No significant valvular abnormality noted. No previous echo to compare. Patient remains on diuretic therapy 2. Acute viral syndrome ? Patient initial evaluation with SARS-CoV-2 influenza and RSV PCR came back negative. Subsequently ordered acute viral respiratory panel to rule out other possible viral etiology. Plan is to continue with symptom management for now. 3. End-stage renal disease on hemodialysis ? Dialysis days Wednesdays and Fridays. Consult placed to nephrology for dialysis orders. Ordered daily BMP for subsequent eval ? Creatinine up to 9.08 and potassium was 5.3. 4. Anemia ? Secondary to chronic disorder monitoring H&H and transfuse if patient becomes symptomatic or hemoglobin falls below 7 5. Diabetes mellitus type II Patient is on long-acting insulin as well as scheduled short acting insulin did continue with home regimen. In addition patient was placed on Accu-Cheks a.c. and at bedtime and covered with sliding scale insulin 6. Hypertension ? Blood pressure control not optimal, resume home medication added hydralazine as needed for systolic blood pressure greater than 160 7. Hypothyroidism ? Patient is on levothyroxine home dose continued 8. Depression with anxiety ? Per history patient currently not on any treatment 9. Dyslipidemia ?Patient is on statin therapy, continued at home dose 10. DVT prophylaxis ? Subcu heparin Charges/Coding Visit Charges Inpatient E&M: 67394 Subs Hosp L2
[2025-01-29 11:56] LABS: Bedside Glucose 116 mg/dL (74-106)
[2025-01-29] MEDS: Lidocaine/Prilocaine HCl 5 GM Tube TOPICAL (12:11)
[2025-01-29] MEDS: PureFlow B 2K Dialysis Soln 1 BAG 6 BAG PF (12:12)
[2025-01-29] MEDS: 0.9% Normal Saline 1,000 ML IV.SOLN. 1000 ML OPERA.SITE (12:13)
--- NOTE | 2025-01-29 12:59 | PN.RENAL_ITS ---
Subjective Subjective feels better Objective Data Objective Data Vital Signs: Vital Signs Temp Pulse Resp BP Pulse Ox O2 Del Method O2 Flow Rate 98.1 F 61 15 145/46 H 100 Nasal Cannula 2 01/29/25 11:30 01/29/25 12:32 01/29/25 12:32 01/29/25 12:32 01/29/25 11:30 01/29/25 12:32 01/29/25 12:32 Oxygen Flow Rate (L/min) 2 Oxygen Delivery Method Nasal Cannula Weight: 58.2 kg Body Mass Index (BMI) 21.9 Intake & Output: Intake and Output for Last 24 Hours 01/27/25 01/28/25 01/29/25 23:59 23:59 23:59 Intake Total 600 / 600 720 / 720 Balance 600 / 600 720 / 720 Lab / Micro Data 01/29/25 07:22 01/29/25 05:36 Labs: Laboratory Results - last 24 hr 01/28/25 08:10: Hemoglobin A1c 7.4 H 01/28/25 16:24: POC Glucose 108 H 01/28/25 18:13: POC Glucose 62 L 01/28/25 21:30: POC Glucose 143 H 01/29/25 05:36: WBC Cancelled, Corrected WBC Cancelled, RBC Cancelled, Hgb Cancelled, Hct Cancelled, MCV Cancelled, MCH Cancelled, MCHC Cancelled, RDW Std Deviation Cancelled, RDW Coeff of Alvina Cancelled, Plt Count Cancelled, MPV Cancelled, Immature Gran % (Auto) Cancelled, Neut % (Auto) Cancelled, Lymph % (Auto) Cancelled, [place] % (Auto) Cancelled, Eos % (Auto) Cancelled, Baso % (Auto) Cancelled, Absolute Neuts (auto) Cancelled, Absolute Lymphs (auto) Cancelled, Total Counted Cancelled, Neutrophils % (Manual) Cancelled, Band Neutrophils % Cancelled, Lymphocytes % (Manual) Cancelled, Monocytes % (Manual) Cancelled, Eosinophils % (Manual) Cancelled, Basophils % (Manual) Cancelled, Metamyelocytes % Cancelled, Myelocytes % Cancelled, Promyelocytes % Cancelled, Blast Cells % Cancelled, Plasma Cell % (Manual) Cancelled, Other Cells % Cancelled, Nucleated RBC % Cancelled, Nucleated RBCs/100 WBC Cancelled, Differential Comment Cancelled, Diff Path Review Cancelled, Hypersegmented Neuts Cancelled, Atypical Lymphocytes Cancelled, Reactive Lymphocytes Cancelled, Smudge Cells Cancelled, Toxic Granulation Cancelled, Toxic Vacuolation Cancelled, Dohle Bodies Cancelled, Erin Rods Cancelled, Platelet Estimate Cancelled, Plt Morphology Comment Cancelled, RBC Morphology Cancelled 01/29/25 05:36: RBC Morphology Cancelled, Polychromasia Cancelled, Hypochromasia Cancelled, Basophilic Stippling Cancelled, Anisocytosis Cancelled, Microcytosis Cancelled, Macrocytosis Cancelled, Spherocytes Cancelled, Sickle Cells Cancelled, Target Cells Cancelled, Tear Drop Cells Cancelled, Ovalocytes Cancelled, Stomatocytes Cancelled, Peterson-[place] Bodies Cancelled, [place] Cells Cancelled, Bite Cells Cancelled, Crenated Cell Cancelled, Acanthocytes (Spur) Cancelled, Rouleaux Cancelled, Schistocytes Cancelled, Sodium 137, Potassium 5.3 H, Chloride 100, Carbon Dioxide 26.8, Anion Gap 10, BUN 32 H, Creatinine 5.62 H, Estim Creat Clear Calc 9.08 L*, Est GFR (MDRD) Non-Af 8 L, BUN/Creatinine Ratio 5.7 L, Glucose 163 H, Calcium 9.0, Phosphorus 2.9, Magnesium 2.7 H 01/29/25 07:22: WBC 5.9, RBC 3.06 L, Hgb 9.2 L, Hct 29.5 L, MCV 96.4 D, MCH 30.1, MCHC 31.2 L D, RDW Std Deviation 47.8 H, RDW Coeff of Alvina 13.7, Plt Count 165, MPV 10.1, Immature Gran % (Auto) 0.700, Neut % (Auto) 61.6, Lymph % (Auto) 27.9, [place] % (Auto) 7.4, Eos % (Auto) 1.0, Baso % (Auto) 1.4 H, Absolute Neuts (auto) 3.6, Absolute Lymphs (auto) 1.63, Nucleated RBC % 0 01/29/25 07:56: POC Glucose 162 H 01/29/25 10:39: POC Glucose 143 H 01/29/25 11:32: POC Glucose 116 H Micro: Microbiology 01/28/25 08:19 Mucosa - Nose SARS-CoV-2, Influenza & RSV (PCR) - Final Radiography Diagnostic Testing: Radiology Impression Echocardiogram 01/28/25 10:37 Interpretation Summary The estimated ejection fraction is 55-60 %. Overall normal LV systolic function No significant valvular abnormality noted. No previous echo to compare. Ordering Physician: Allan Ricketts Performed By: Dave Holly RCS Physical Exam Narrative Alert and oriented x 3, no apparent distress S1, S2, RRR Diminished breath sounds with faint rales. On O2 nasal cannula Abdomen soft, nontender No pitting edema AV fistula right upper arm positive thrill and bruit Assessment & Plan Assessment/Plan (1) ESRD (end stage renal disease) on dialysis: PLAN: ESRD. On hemodialysis Monday, Monday, Monday. Came with shortness of breath. Feels better today. She thinks volume removal helped. Dry weight likely need to be adjusted down. Dialysis again today, we will attempt another 2 to 4 L of volume removal.
[2025-01-29 16:44] LABS: Bedside Glucose 77 mg/dL (74-106)
[2025-01-29] MEDS: Atorvastatin Calcium 40 MG Tablet PO (22:09)
[2025-01-29] MEDS: Fleet Enema 133 ML RC (22:11)
[2025-01-30 00:32] LABS: Bedside Glucose 156 mg/dL (74-106)
[2025-01-30 04:15] VITALS: BP 159/46; PULSE 70; RESP 18; TEMP 36.1; O2SAT 95
[2025-01-30 06:19] LABS: Absolute Lymphocyte Count 1.29 X10^3/uL (0.83-4.51); Absolute Neutrophil Count 3.5 X10^3/uL (2.0-7.7); Basophil# 0.07 X10^3/uL; Basophil% 1.3 % (0-1); Eosinophil# 0.05 X10^3/uL; Hematocrit 25.5 % (37-47); Hemoglobin 8.3 g/dL (12.0-15.0); Lymphocyte # 1.29 X10^3/ul (0.83-4.51); Lymphocyte % 24.6 % (19-41); Mean Corp Hgb Conc 32.5 g/dL (32-36); Mean Corpuscular Hgb 30.5 pg (27.0-32.0); Mean Corpuscular Volume 93.8 fL (81-99); Mean Platelet Vol. 9.6 fl (6.2-12.0); Monocyte# 0.33 X10^3/uL; Monocyte% 6.3 % (0-10); NRBC Flagged by Analyzer 0 % (0-5); Neutrophil # 3.48 X10^3/uL (2.7-7.7); Neutrophil % 66.4 % (47-70); Platelet Count 166 K/mm3 (150-450); RBC Distribution Width CV 13.7 % (11.6-14.6); Red Blood Count 2.72 M/mm3 (4.2-5.4); White Blood Count 5.2 K/mm3 (4.4-11.0)
[2025-01-30] MEDS: Furosemide 40 MG/4 ML Vial IV (06:29)
[2025-01-30] MEDS: Levothyroxine 125 MCG Tablet PO (06:30)
[2025-01-30 06:49] LABS: Anion Gap 9 (5-15); BUN 27 mg/dL (4-19); BUN/Creat Ratio 5.6 RATIO (10-20); Calcium,Total 9.1 mg/dL (7.6-11.0); Carbon Dioxide 27.9 mmol/L (21.0-32.0); Chloride 99 mmol/L (98-108); Creatinine, Serum 4.78 mg/dL (0.70-1.20); EST Glomerular Filtration Rate 10 (>60); Estimated Creatinine Clearance 10.67 ml/min (50-250); Glucose 186 mg/dL (70-99); Potassium 4.9 mmol/L (3.3-5.1); Sodium Level 135 mmol/L (133-145)
[2025-01-30 06:58] LABS: Bedside Glucose 179 mg/dL (74-106)
[2025-01-30 08:22] VITALS: BP 146/50; PULSE 69; RESP 16; TEMP 36.7; O2SAT 96
[2025-01-30] MEDS: SUCROFERRIC OXYHYDROXIDE 500 MG TAB.CHEW PO (08:26)
[2025-01-30 08:27] VITALS: BP 146/50; PULSE 69
[2025-01-30] MEDS: Metoprolol Tartrate 25 MG Tablet PO (08:27)
[2025-01-30] MEDS: Lisinopril 40 MG Tablet PO (08:27)
[2025-01-30] MEDS: Folic Acid/Vitamin B Comp W-C 1 Capsule 1 CAP PO (08:27)
[2025-01-30] MEDS: amLODIPine 10 MG Tablet PO (08:27)
[2025-01-30] MEDS: cloNIDine HCl 0.2 MG Tablet PO (08:28)
[2025-01-30] MEDS: Aspirin E.C. 81 MG Tablet PO (08:28)
[2025-01-30] MEDS: Heparin Injection (Vial) 5,000 UNIT/ML VIAL 5000 UNIT SC (08:28)
--- NOTE | 2025-01-30 09:04 | PCM.DC.SUM ---
Providers Date of Admission: 01/28/25 Date of Discharge: 01/30/25 Primary Care Physician: Dr. Maldonado Denny MD Consultations 01/28/25 10:37 Consult: Nephrology Routine Consulting Provider: [place] Reason for Consult: ESRD EMERGENT Consult: No MD Notified: Yes Date Notified: 01/28/25 Time Notified: 10:44 Method of Notification: Answering Service Reason For Visit: HYPOXIA Diagnosis Discharge Diagnosis (1) ESRD (end stage renal disease) on dialysis: Status: Chronic Code(s): N18.6 - End stage renal disease; Z99.2 - Dependence on renal dialysis Plan Patient is a 60-year-old lady with history of end-stage renal disease on hemodialysis presented with shortness of breath with associated progressive generalized weakness fever and chills 1.Acute congestive heart failure with preserved ejection fraction ? Unspecified at this point. Patient has been admitted to monitored bed treatment initiated with fluid restriction, strict input and output, low-sodium diet as well as diuretic therapy with furosemide. Patient is also on hemodialysis consult has been placed for nephrology for dialysis orders to help manage patient fluid status. As part of her management 2D echo was ordered to assess EF ? 01/29/2025; 2D echo obtained demonstrated estimated ejection fraction of 55-60 %. Overall normal LV systolic function No significant valvular abnormality noted. No previous echo to compare. Patient remains on diuretic therapy 2. Acute viral syndrome ? Patient initial evaluation with SARS-CoV-2 influenza and RSV PCR came back negative. Subsequently ordered acute viral respiratory panel to rule out other possible viral etiology. Plan is to continue with symptom management for now. 3. End-stage renal disease on hemodialysis ? Dialysis days Wednesdays and Fridays. Consult placed to nephrology for dialysis orders. Ordered daily BMP for subsequent eval ? Creatinine up to 9.08 and potassium was 5.3. 4. Anemia ? Secondary to chronic disorder monitoring H&H and transfuse if patient becomes symptomatic or hemoglobin falls below 7 5. Diabetes mellitus type II Patient is on long-acting insulin as well as scheduled short acting insulin did continue with home regimen. In addition patient was placed on Accu-Cheks a.c. and at bedtime and covered with sliding scale insulin 6. Hypertension ? Blood pressure control not optimal, resume home medication added hydralazine as needed for systolic blood pressure greater than 160 7. Hypothyroidism ? Patient is on levothyroxine home dose continued 8. Depression with anxiety ? Per history patient currently not on any treatment 9. Dyslipidemia ?Patient is on statin therapy, continued at home dose 10. DVT prophylaxis ? Subcu heparin 11. Acute hypoxia secondary to congestive heart failure ? Patient was assessed for home oxygen prior to discharge I have reviewed the oxygen testing, and this patient qualifies for the home equipment and portability. The patient is mobile in the home and the community. Medications at Discharge Home Medications aspirin 81 mg tablet,delayed release (Adult Low Dose Aspirin) 81 mg PO DAILY heart health 08/14/18 atorvastatin 40 mg tablet 40 mg PO QHS CHOLESTEROL 08/14/18 vitamin B complex-vitamin C-folic acid 0.8 mg tablet (Bethanie-Petey) 1 tab PO DAILY SUPPLEMENT 01/11/21 levothyroxine 125 mcg tablet 125 mcg PO DAILY THYROID 05/31/23 lisinopril 40 mg tablet 40 mg PO DAILY BLOOD PRESSURE 05/31/23 sucroferric oxyhydroxide 500 mg chewable tablet (Velphoro) 500 mg PO TID PHOSPHATE BINDER 05/31/23 amlodipine 10 mg tablet 10 mg PO DAILY 01/28/25 clonidine HCl 0.2 mg tablet 0.2 mg PO BID 01/28/25 insulin glargine 100 unit/mL (3 mL) subcutaneous pen (Lantus Solostar U-100 Insulin) 48 unit subcut QHS 01/28/25 insulin lispro 100 unit/mL subcutaneous pen 8 unit subcut .COMPLEX 01/28/25 metoprolol tartrate 25 mg tablet 25 mg PO Q12H 01/28/25 sumatriptan succinate 50 mg tablet 50 mg PO BID PRN migraine 01/28/25 furosemide 40 mg tablet (Lasix) 40 mg PO DAILY #90 tabs 01/30/25 Hospital Course Summary of Care Provided Minutes Spent on Discharge: 35 Physical Exam Narrative GENERAL: Patient appears fatigued HEENT: Atraumatic; normocephalic EYES; Anicteric, Normal Conjunctiva NECK; supple, normal thyroid, RESPIRATORY: Diminished to auscultation CARDIOVASCULAR: Regular S1 S2, GI: soft, normoactive bowel sounds, : No Renal angle tenderness; EXTREMITIES: AV fistula right arm MUSCULOSKELETAL: no muscle wasting NEURO: Awake; no lateralizing signs. SKIN: No Rash PSYCH; Flat affect Weight / BMI Weight Weight: 55.4 kg Body Mass Index (BMI) 20.8 ABG / Lab / Microbiology Data 01/30/25 05:52 01/30/25 05:52 Laboratory: Laboratory Results - last 24 hr 01/29/25 10:39: POC Glucose 143 H 01/29/25 11:32: POC Glucose 116 H 01/29/25 16:26: POC Glucose 77 01/29/25 22:34: POC Glucose 156 H 01/30/25 05:52: WBC 5.2, RBC 2.72 L, Hgb 8.3 L, Hct 25.5 L, MCV 93.8, MCH 30.5, MCHC 32.5, RDW Std Deviation 46.0 H, RDW Coeff of [place] 13.7, Plt Count 166, MPV 9.6, Immature Gran % (Auto) 0.400, Neut % (Auto) 66.4, Lymph % (Auto) 24.6, [place] % (Auto) 6.3, Eos % (Auto) 1.0, Baso % (Auto) 1.3 H, Absolute Neuts (auto) 3.5, Absolute Lymphs (auto) 1.29, Nucleated RBC % 0, Sodium 135, Potassium 4.9, Chloride 99, Carbon Dioxide 27.9, Anion Gap 9, BUN 27 H, Creatinine 4.78 H, Estim Creat Clear Calc 10.67 L, Est GFR (MDRD) Non-Af 10 L, BUN/Creatinine Ratio 5.6 L, Glucose 186 H, Calcium 9.1 01/30/25 06:34: POC Glucose 179 H 01/30/25 08:58: POC Glucose 180 H Microbiology: Microbiology 01/28/25 08:19 Mucosa - Nose SARS-CoV-2, Influenza & RSV (PCR) - Final D/C Instructions Discharge Diet: 8 Cup Fluid Restriction and Renal Diet Discharge Activity: Return to Normal Activity Call your doctor if you observe: Fever of 101 or Higher, Shortness of breath, Fainting spells and Chest pain DC O2, CPAP, BIPAP Needs Home O2 Discharge instructions: Yes Type of respiratory needs?: Oxygen Oxygen frequency: With Ambulation Oxygen liters per minute during Ambulation: 2 DC home with Oxygen: Yes Home O2 MD Review: I have reviewed the oxygen testing, and the patient qualifies for home oxygen equipment and portability. The patient is mobile in the home and the community. Meaningful Use Info Meaningful Use Meaningful Use Diagnoses (Choose all that apply): CHF CHF YVES/ARB ordered at discharge?: Yes Documented LVEF (%): 55 Ischemic Stroke Statin Dosing Therapy Reference: STATIN DOSE THERAPY REFERENCE: * Patients > 75 years receive moderate or high dose statin therapy. * Patients 75 years or YOUNGER should receive HIGH intensity statin dose unless contraindicated. You will be required to document reason for non-treatment if statin daily dose does not meet guidelines. HIGH DOSE STATIN THERAPY DAILY Atorvastatin > than or = to 40 mg Rosuvastatin > than or = to 20 mg Amlodipine + Atorvastatin > than or = to 2.5/40 mg Ezetimibe + Simvastatin 10/80 mg Simvastatin 80mg Discharge Plan Admission Admit Date/Time: 01/28/25 09:25 Attending Provider: Allan Ricketts Primary Care Provider: Maldonado Denny Consulting Providers: [place] Discharge Orders/Prescriptions Prescriptions: New furosemide [Lasix] 40 mg tablet 40 mg PO DAILY Qty: 90 0RF Continued aspirin [Adult Low Dose Aspirin] 81 mg tablet,delayed release (DR/EC) 81 mg PO DAILY atorvastatin 40 mg tablet 40 mg PO QHS Bethanie-Petey 0.8 mg Tablet 1 tab PO DAILY lisinopril 40 mg tablet 40 mg PO DAILY Velphoro 500 mg tablet,chewable 500 mg PO TID levothyroxine 125 mcg tablet 125 mcg PO DAILY sumatriptan succinate 50 mg tablet 50 mg PO BID PRN (Reason: migraine) clonidine HCl 0.2 mg tablet 0.2 mg PO BID amlodipine 10 mg tablet 10 mg PO DAILY insulin lispro 100 unit/mL insulin pen 8 unit SUBCUT .COMPLEX Rx Instructions: INJECT 8 UNITS SUBCUTANEOUSLY THREE TIMES DAILY BEFORE MEALS, Add 1 UNIT for each 50 mg/dl above 150. metoprolol tartrate 25 mg tablet 25 mg PO Q12H insulin glargine [Lantus Solostar U-100 Insulin] 100 unit/mL (3 mL) insulin pen 48 unit subcut QHS Referrals / Follow Up: Maldonado Denny MD [Primary Care Provider] - Within 2 Weeks Disposition Disposition (needs filled in before D/C Order can be placed): Home, Self Care Charges/Coding Visit Charges Inpatient E&M: 94026 Disch Hosp >30min
[2025-01-30] MEDS: Insulin Lispro 100 UNIT/ML INSULN.PEN SC (09:05)
[2025-01-30 09:18] VITALS: O2SAT 86; O2SAT 93
[2025-01-30 09:30] LABS: Bedside Glucose 180 mg/dL (74-106)
[2025-01-30 09:57] VITALS: BP 146/50; PULSE 69; RESP 16; TEMP 36.7; O2SAT 96
--- NOTE | 2025-01-30 10:02 | CASEMGMT ---
Pt has order for DC placed. Per the testing consultant, the pt qualifies for new home oxygen (2L with exertion). RN CM to pt room. Pt states that she still prefers [employer] and inquires if she can also get a WC through [employer]. This RN CM collaborated with Dr. Ricketts who states that the pt does not qualify due to being independent with no mobility limitations. This RN CM updated the pt on this and states that she is OK with this. Pt states that she does not need it now but was inquiring for potential future needs. Pt educated to follow up with her PCP if she would like to get a WC potentially through her insurance. Pt states understanding. Pt states that she has a ride home today and plans to resume HD tomorrow. TC to Jan from [place] who will be bringing the pt the portable oxygen soon. Pt is aware to call [employer] once she gets home to have the remaining oxygen equipment delivered. Pt states understanding and denies further DC needs.
--- NOTE | 2025-01-30 11:55 | PN.RENAL_ITS ---
Subjective Subjective No new complaints Objective Data Objective Data Vital Signs: Vital Signs Temp Pulse Resp BP Pulse Ox O2 Del Method O2 Flow Rate 98.0 F 69 16 146/50 H 96 Nasal Cannula 2 01/30/25 09:57 01/30/25 09:57 01/30/25 09:57 01/30/25 09:57 01/30/25 09:57 01/30/25 09:57 01/30/25 09:57 Oxygen Flow Rate (L/min) 2 Oxygen Delivery Method Nasal Cannula Weight: 55.4 kg Body Mass Index (BMI) 20.8 Intake & Output: Intake and Output for Last 24 Hours 01/28/25 01/29/25 01/30/25 23:59 23:59 23:59 Intake Total 600 / 600 720 / 1070 600 / 600 Output Total 3460 / 3460 Balance 600 / 600 -2740 / -2390 600 / 600 Lab / Micro Data 01/30/25 05:52 01/30/25 05:52 Labs: Laboratory Results - last 24 hr 01/29/25 11:32: POC Glucose 116 H 01/29/25 16:26: POC Glucose 77 01/29/25 22:34: POC Glucose 156 H 01/30/25 05:52: WBC 5.2, RBC 2.72 L, Hgb 8.3 L, Hct 25.5 L, MCV 93.8, MCH 30.5, MCHC 32.5, RDW Std Deviation 46.0 H, RDW Coeff of [place] 13.7, Plt Count 166, MPV 9.6, Immature Gran % (Auto) 0.400, Neut % (Auto) 66.4, Lymph % (Auto) 24.6, [place] % (Auto) 6.3, Eos % (Auto) 1.0, Baso % (Auto) 1.3 H, Absolute Neuts (auto) 3.5, Absolute Lymphs (auto) 1.29, Nucleated RBC % 0, Sodium 135, Potassium 4.9, Chloride 99, Carbon Dioxide 27.9, Anion Gap 9, BUN 27 H, Creatinine 4.78 H, E stim Creat Clear Calc 10.67 L, Est GFR (MDRD) Non-Af 10 L, BUN/Creatinine Ratio 5.6 L, Glucose 186 H, Calcium 9.1 01/30/25 06:34: POC Glucose 179 H 01/30/25 08:58: POC Glucose 180 H Micro: Microbiology 01/28/25 08:19 Mucosa - Nose SARS-CoV-2, Influenza & RSV (PCR) - Final Physical Exam Narrative Alert and oriented x 3, no apparent distress S1, S2, RRR Diminished breath sounds with faint rales. On O2 nasal cannula Abdomen soft, nontender No pitting edema AV fistula right upper arm positive thrill and bruit Assessment & Plan Assessment/Plan (1) ESRD (end stage renal disease) on dialysis: PLAN: ESRD. On hemodialysis Monday, Monday, Monday. Came with shortness of breath. Feels better today. She thinks volume removal helped. Dry weight likely need to be adjusted down. Possible discharge home today
== END 2025-01-30 12:10 | disposition home or self-care (01) | DRG 291 ==
LOC: ED 08:49 → PCU 09:39
PROVIDERS: Admitting Provider Internal Medicine; Emergency Provider Surgery; PCP Internal Medicine; Visit Provider Internal Medicine
DX: I13.2 Hypertensive heart and chronic kidney disease with heart failure and with stage 5 chronic kidney disease, or end stage renal disease (principal); N18.6 End stage renal disease; I50.31 Acute diastolic (congestive) heart failure; Z99.2 Dependence on renal dialysis; E11.22 Type 2 diabetes mellitus with diabetic chronic kidney disease; E03.9 Hypothyroidism, unspecified; E78.5 Hyperlipidemia, unspecified; Z79.4 Long term (current) use of insulin; F41.8 Other specified anxiety disorders; E11.65 Type 2 diabetes mellitus with hyperglycemia; Z87.891 Personal history of nicotine dependence; Z90.710 Acquired absence of both cervix and uterus; Z79.890 Hormone replacement therapy; Z79.899 Other long term (current) drug therapy; B34.9 Viral infection, unspecified; Z11.52 Encounter for screening for COVID-19
CPT/HCPCS: 36415; 71046; 80048; 82962; 83036; 83735; 84100; 85025; 87631; 90937; 93306; 94640; 97802; 99285; Q9957; A4216; C8929; G0257; J1938; J2405

== ENCOUNTER 2025-05-17 21:17 | Emergency (ER) | payer MEDICARE, MEDICAID, SELFPAY ==
[2025-05-17 21:18] VITALS: BP 167/54; PULSE 81; RESP 16; TEMP 36.6; O2SAT 97
--- NOTE | 2025-05-17 21:22 | CT_ITS ---
PROCEDURE: ABDOMEN/PELVIS WITHOUT CONT 05/17/2025 REASON FOR EXAM: NAUSEA AND VOMITING TECHNIQUE: Procedure Code: CTABDPEL Modality: CT Procedure: ABDOMEN/PELVIS WITHOUT CONT Noncontrast technique limits evaluation of the abdominal and pelvic viscera. Coronal and Sagittal reconstruction series were provided. One or more dose reduction techniques were used (e.g., Automated exposure control, adjustment of the mA and/or kV according to patient size, use of iterative reconstruction technique). COMPARISON: CT abdomen and pelvis 05/31/2023 FINDINGS: Lung bases: Moderate right and small left pleural effusions with adjacent passive atelectasis. Cardiomegaly with coronary artery atherosclerotic calcifications. Liver: Normal size. No obvious mass. Gallbladder: Surgically absent. No biliary ductal dilatation. Spleen: Normal size. Pancreas: Atrophic. Adrenals: Unremarkable. Kidneys: No urolithiasis. No hydronephrosis. Bladder: Unremarkable Reproductive Organs: Prior hysterectomy. Adnexal regions are unremarkable. Bowel: Contrast is seen within the colon. A nonobstructive loop of the transverse colon is seen protruding into the ventral abdominal hernia. Appendix: The appendix is not identified. There is no inflammatory process identified in the right lower quadrant to suggest appendicitis. Lymph nodes: Unremarkable. Vasculature: Moderate atherosclerotic calcifications of the abdominal aorta and its branches. No aneurysm. Peritoneum / Retroperitoneum: No free fluid or air. Bones: No acute fractures. Abdominal wall: Decreased size of the moderate anterior abdominal wall hernia containing nonobstructed loop of the transverse colon. The hernia neck measures 2.9 x 3.7 cm and hernia sac measures 6.2 x 4[address]/Abdomen/Pelvis without Cont IMPRESSION: 1. No acute findings in the abdomen or pelvis as imaged. 2. Decreased size of the anterior abdominal wall hernia containing a nonobstruc tive loop of the transverse colon. 3. Moderate right and small left pleural effusions with adjacent passive atelec tasis. Reading Location: [facility]
--- NOTE | 2025-05-17 21:22 | EX.ED.GENINJ ---
HPI History of Present Illness Chief Complaint: Nausea/Vomiting [facility] Medical History (Updated 05/17/25 @ 23:[address] Donald Ruiz, DO) S/p small bowel obstruction Incarcerated incisional hernia Wears hearing aid in both ears Hypothyroidism Dialysis patient Kidney disease Former smoker Congestive heart failure (CHF) TIA (transient ischemic attack) Problem with dialysis access Hemorrhoids Acid reflux Constipation Anxiety Depression Hypertension Heart disease Diabetes Thyroid disease Home Medications ?Medication ?Instructions ?Recorded ?Last Taken ?Type aspirin 81 mg tablet,delayed 81 mg PO DAILY heart health 08/14/18 01/27/25 History release (Adult Low Dose Aspirin) atorvastatin 40 mg tablet 40 mg PO QHS CHOLESTEROL 08/14/18 01/27/25 History vitamin B complex-vitamin C-folic 1 tab PO DAILY SUPPLEMENT 01/11/21 01/27/25 History acid 0.8 mg tablet (Bethanie-Petey) levothyroxine 125 mcg tablet 125 mcg PO DAILY THYROID 05/31/23 01/27/25 History lisinopril 40 mg tablet 40 mg PO DAILY BLOOD PRESSURE 05/31/23 01/27/25 History sucroferric oxyhydroxide 500 mg 500 mg PO TID PHOSPHATE BINDER 05/31/23 01/27/25 History chewable tablet (Velphoro) amlodipine 10 mg tablet 10 mg PO DAILY blood pressure 01/28/25 01/27/25 History clonidine HCl 0.2 mg tablet 0.2 mg PO BID blood pressure 01/28/25 01/27/25 History insulin glargine 100 unit/mL (3 48 unit subcut QHS diabetes 01/28/25 01/27/25 History mL) subcutaneous pen (Lantus Solostar U-100 Insulin) insulin lispro 100 unit/mL 8 unit subcut .COMPLEX diabetes 01/28/25 01/27/25 History subcutaneous pen metoprolol tartrate 25 mg tablet 25 mg PO Q12H blood pressure 01/28/25 01/27/25 History sumatriptan succinate 50 mg tablet 50 mg PO BID PRN migraine 01/28/25 Unknown History furosemide 40 mg tablet (Lasix) 40 mg PO DAILY #90 tabs 01/30/25 Unknown Rx ondansetron 4 mg disintegrating 4 mg PO Q8H PRN PRN Nausea #10 tabs 05/17/25 Unknown Rx tablet oxycodone 5 mg tablet 5 mg PO Q6H PRN pain 3 days #12 05/17/25 Unknown Rx tabs Allergy/AdvReac Type Severity Reaction Status Date / Time Penicillins Allergy Severe Anaphylaxis Verified 05/17/25 21:20 chlorhexidine Allergy Mild rash Verified 05/17/25 21:20 codeine Allergy Unknown Unknown Verified 05/17/25 21:20 latex Allergy Unknown Unknown Verified 05/17/25 21:20 Family History Brother Kidney disease Mother Cancer lung cancer Father Colon cancer Surgical History S/P laparotomy with lysis of adhesions Hx of arteriovenostomy for renal dialysis Hx of bilateral breast reduction surgery History of partial hysterectomy History of bowel resection Hx of appendectomy Hx of cholecystectomy Social History Smoking Status: Former smoker alcohol intake: never substance use type: does not use caffeine: Yes what type of physical activity do you participate in: none frequency: does not exercise EXAM Physical Exam Const Vital Signs: 05/17/25 21:18 05/17/25 23:39 05/18/25 00:02 Temperature 97.8 F 98.0 F Temperature Source Temporal Pulse Rate 81 70 72 Respiratory Rate 16 14 18 Blood Pressure 167/54 H 143/50 H 146/50 H Blood Pressure Mean 91 81 82 Pulse Ox 97 95 95 Oxygen Delivery Method Room Air Room Air MDM MDM MDM Narrative Medical decision making narrative: HISTORY OF PRESENT ILLNESS: Chief complaint: Nausea and vomiting 60-year-old female with a past medical history significant for DM2, ESRD on HD Monday/Monday/Monday, HTN, thyroid disease, multiple abdominal surgeries, small bowel obstruction and incisional hernia presents with nausea vomiting. She states this began this evening after supper. Notes multiple dental surgeries in the past. Denies any changes to bowel or bladder habits. Denies any vaginal bleeding or discharge. Notes a chronic hernia. She completed dialysis on Monday (yesterday). REVIEW OF SYSTEMS: Pertinent positives: abdominal pain, Nausea and vomiting Pertinent negatives: THURMAN, fever, CP, SOB, syncope, vaginal bleeding, dysuria, PHYSICAL EXAM: Nursing triage notes reviewed, Vital signs reviewed Constitutional: please see mdm HENT: MMM Eyes: Pupils equal round and reactive to light, Extraocular muscles intact Neck: No stridor, no JVD, full neck ROM Lungs: Clear to auscultation, No wheezing or rales. No increased work of breathing, no conversational dyspnea, no accessory muscle use, no nasal flaring. No respiratory distress noted Heart: Regular rate and rhythm, No murmurs, No rubs and No gallops, 2+ distal pulses (radial, femoral, posterior tibial) in all extremities Abdomen: Soft, there is no tenderness, palpable, nonreducible ventral hernia (chronic per patient), no rigidity, rebound or guarding, no obvious peritoneal signs, no palpable pulsatile abdominal masses, no auscultated abdominal bruit : No CVAT Extremities: No edema Neuro: No new focal neurological deficits, cranial nerves II through XII intact, 5/5 strength in all present extremities. Intact sensation to light touch in all present extremities, 2+ reflexes bilateral patella tendons. Skin: No rash or lesions noted MEDICAL DECISION MAKING: Chief Complaint: please see HPI External records reviewed: Reviewed prior imaging: Reviewed CT scan of 2022 which shows a parous anterior abdominal wall hernia Factors affecting care: Abdominal wall hernia, hypertension, ESRD otherwise as per HPI Social determinants of health: n denies alcohol use History obtained from others: Significant other Consults: none MDM Narrative: Patient was initially hemodynamically stable, afebrile and nontoxic-appearing. Abdomen with chronic hernia otherwise not peritonitic I considered the following differential diagnosis: Dehydration, electrolyte disturbance, bowel obstruction or perforation I obtained a broad lab and imaging to further determine if the patient was suffering from a life-threatening etiology. Initially assessed the patient with IV morphine and Zofran. Held off on fluids secondary to ESRD and concern for volume overload. ALL IMAGES (IF OBTAINED) HAVE BEEN PERSONALLY REVIEWED AND INTERPRETED BY MYSELF. CBC with a leukocytosis, chronic anemia, no thrombocytopenia BMP without significant electrolyte abnormalities, no sign of metabolic acidosis, noted ESRD LFTs show no evidence of hepatobiliary pathology. Lipase is wnl indicating no pancreatic inflammation. CT scan of the abdomen pelvis without contrast showed no acute surgical abnormalities Upon reassessment the patient remained hemodynamically stable. Repeat abdominal exam remained benign with no significant changes. Patient was able to tolerate p.o. Patient is appropriate for discharge home as there is no life-limiting etiology to be identified. The patient and/or family, caregivers express understanding. The patient and/or family, caregivers agrees with the plan. Shared decision making: I will have a discussion with the patient and or visitors regarding risk/benefits of further testing or admission. They will be made aware of of the risk/benefits inherent in this decision they will be given the opportunity to voice understanding. Total critical care time today provided was at least 0 minutes. This excludes separately billable procedures. Critical care time (if documented) is secondary to the patient having high probability of clinically significant/life threatening deterioration in the patient's condition which required my urgent intervention. Impression: 1. Acute abdominal Pain 2. Nausea and vomiting Dispo: discharge home This note was generated with [employer] dictation software. It may contain incorrect words, spelling, and punctuation that were not noted in review of the chart prior to signing. Lab Data Labs: Laboratory Results - last 24 hr 05/17/25 22:15 WBC 7.0 RBC 3.86 L Hgb 11.2 L Hct 34.7 L MCV 89.9 MCH 29.0 MCHC 32.3 RDW Std Deviation 41.9 RDW Coeff of Alvina 12.7 Plt Count 185 MPV 10.1 Immature Gran % (Auto) 0.400 Neut % (Auto) 71.4 H Lymph % (Auto) 20.0 Wirt % (Auto) 6.5 Eos % (Auto) 0.7 Baso % (Auto) 1.0 Absolute Neuts (auto) 5.0 Absolute Lymphs (auto) 1.41 Nucleated RBC % 0 Sodium 139 Potassium 4.4 Chloride 95 L Carbon Dioxide 28.6 Anion Gap 16 H BUN 31 H Creatinine 6.01 H Estim Creat Clear Calc 7.77 L* Est GFR (MDRD) Non-Af 7 L BUN/Creatinine Ratio 5.1 L Glucose 121 H Calcium 10.2 Total Bilirubin 0.43 AST 49 H ALT 34 Alkaline Phosphatase 226 H Total Protein 7.8 Albumin 4.5 Globulin 3.4 Albumin/Globulin Ratio 1.3 Lipase 25 Radiography Diagnostic Testing: Clinical Impression(s) from Imaging Studies Abdomen/Pelvis CT 05/17/25 21:22 IMPRESSION: 1. No acute findings in the abdomen or pelvis as imaged. 2. Decreased size of the anterior abdominal wall hernia containing a nonobstructive loop of the transverse colon. 3. Moderate right and small left pleural effusions with adjacent passive atelectasis. Reading Location: [facility] Discharge Plan Triage Chief Complaint: Nausea/Vomiting ED Provider: Donald Ruiz Dx/Rx/DC Orders Clinical Impression: Nausea & vomiting Instructions: ED Vomiting (Adult) Prescriptions: New ondansetron 4 mg tablet,disintegrating 4 mg PO Q8H PRN PRN (Reason: Nausea) Qty: 10 0RF oxycodone 5 mg tablet 5 mg PO Q6H PRN (Reason: pain) 3 Days Qty: 12 0RF No Action aspirin [Adult Low Dose Aspirin] 81 mg tablet,delayed release (DR/EC) 81 mg PO DAILY atorvastatin 40 mg tablet 40 mg PO QHS Bethanie-Petey 0.8 mg Tablet 1 tab PO DAILY lisinopril 40 mg tablet 40 mg PO DAILY Velphoro 500 mg tablet,chewable 500 mg PO TID levothyroxine 125 mcg tablet 125 mcg PO DAILY sumatriptan succinate 50 mg tablet 50 mg PO BID PRN (Reason: migraine) clonidine HCl 0.2 mg tablet 0.2 mg PO BID amlodipine 10 mg tablet 10 mg PO DAILY insulin lispro 100 unit/mL insulin pen 8 unit SUBCUT .COMPLEX Rx Instructions: INJECT 8 UNITS SUBCUTANEOUSLY THREE TIMES DAILY BEFORE MEALS, Add 1 UNIT for each 50 mg/dl above 150. metoprolol tartrate 25 mg tablet 25 mg PO Q12H insulin glargine [Lantus Solostar U-100 Insulin] 100 unit/mL (3 mL) insulin pen 48 unit subcut QHS furosemide [Lasix] 40 mg tablet 40 mg PO DAILY Qty: 90 0RF Primary Care Provider: Maldonado Denny Referrals: Quinn Lewis DO [Med Staff - Active Staff] - Maldonado Denny MD [Primary Care Provider] - Activity Restrictions/Additional Instructions: Thank you for trusting us with your care today! Your labs and images were reassuring. The CT scan your abdomen pelvis shows your chronic hernia but no obvious acute surgical pathology such as bowel obstructions or perforations. Your labs are consistent with end-stage renal disease otherwise unremarkable. It is unclear what caused your symptoms today. However they do not appear to be life-threatening. Please take Tylenol (2 pills, 650 mg), ibuprofen (2 pills, 400 mg) every 6 hours as needed for pain and fever control. Please return to the emergency department if your symptoms change or worsen. Please follow with your primary care physician and gastroenterology for further outpatient evaluation and management. Print Language: Bulgarian Disposition Disposition: Home, Self Care Discharge Date/Time: 05/18/25 00:10
[2025-05-17 21:38] VITALS: BMI 22.8
[2025-05-17 22:20] LABS: Hematocrit 34.7 % (37-47); Hemoglobin 11.2 g/dL (12.0-15.0); Immature Granulocytes Count 0.030 X10^3/uL (0.0-0.0); Mean Corp Hgb Conc 32.3 g/dL (32-36); Mean Corpuscular Volume 89.9 fL (81-99); Mean Platelet Vol. 10.1 fl (6.2-12.0); NRBC Flagged by Analyzer 0 % (0-5); Platelet Count 185 K/mm3 (150-450); RBC Distribution Width CV 12.7 % (11.6-14.6); RBC Distribution Width SD 41.9 fl (35.1-43.9); Red Blood Count 3.86 M/mm3 (4.2-5.4); White Blood Count 7.0 K/mm3 (4.4-11.0)
--- OUTSIDE RECORDS SUMMARY | 2025-05-17 22:43 | XMS RPT_ITS | CCD ---
Author Organization [facility] Care Team Providers Care Sales And Marketing Professional Name Role Phone ASFOURA, JEHAD Y Unavailable Unavailable JAVIER, HÉCTOR T Unavailable Unavailable Javier, Héctor T Unavailable Unavailable Maldonado Raza Unavailable Unavailable Javier, Héctor T Unavailable Unavailable Javier, Héctor T Unavailable Unavailable Asfoura, Jehad Y Unavailable Unavailable Asfoura, Jehad Y Unavailable Unavailable Maldonado Raza Unavailable Unavailable Javier, Héctor T Unavailable Unavailable Maldonado Raza Unavailable Unavailable Javier, Héctor T Unavailable Unavailable Maldonado Raza Unavailable Unavailable Javier, Héctor T Unavailable Unavailable Joanne, Anderson M Unavailable Unavailable Joanne, Anderson M Unavailable Unavailable Maldonado Raza Unavailable Unavailable Javier, Héctor T Unavailable Unavailable Maldonado Raza Unavailable Unavailable Maldonado Raza MD Primary Care Provider [facility], Keti Unavailable Syeda LOPEZ, Santosh Perez Unavailable Unavailabl e None, No PCP Unavailable Unavailable Maldonado Raza MD Primary Care Provider [facility], Keti Unavailable Santosh Landa RN Unavailable [facility] Dr. Maldonado Raza Primary Care Provider Dr. Maldonado Raza Referring Provider ELSY Henao Attending Provider Maldonado Raza MD Primary Care Provider Syeda Frost RN Unavailable Unavailabl e Dr. Maldonado Raza Primary Care Provider Dr. Maldonado Raza Referring Provider ELSY Henao Attending Provider LUZ MARINA VILLANUEVA, DR OKEEFE Primary Care Physician [phone] LUZ MARINA VILLANUEVA, DR OKEEFE Primary Care Unavaila ble YOUSUF CROW DO Attending Unavaila ble AGGIE RODRIGUEZ Consulting Unavailable Dr. Maldonado Raza Primary Care Provider Dr. Ruben Hu Attending Provider Santosh LOPEZ, Syeda Perez Unavailable UnavailByron Jung Unavailable NIKHIL DINERO Attending Unavailable LISA HEREDIA Referring Unavailable MALDONADO RAZA Primary Care Unavailable Ginny LOPEZ, Mireya Urena Unavailable Unavailable Unavailable Primary Care Provider UnavailMaldonado Pulido MD Primary Care Provider Maldonado Raza MD Primary Care Provider RAUL DUQUE Admitting Unavailable RAUL DUQUE Attending Unavailable MALDONADO RAZA Primary Care Unavailable JUAN F, MEDARDO Admitting Unavailable VITA ROGELN Attending Unavailable MALDONADO RAZA Primary Care Unavailable MALDONADO RAZA Primary Care Unavailable DERGHAM, MILAGRO Admitting Unavailable ERMIASAM, MILAGRO Attending Unavailable OTONIEL GUY Consulting UnavailFELICIA Alejandro Referring Unavailable MALDONADO RAZA Primary Care Unavailable JUAN F, MEDARDO Referring Unavailable MALDONADO RAZA Primary Care Unavailable FELICIA AVENDANO Admitting Unavailable FELICIA AVENDANO Attending Unavailable MALDONADO RAZA Primary Care Unavailable Flo LOPEZ, Asuncion Unavailable Unavailable ROLY FONTANA Referring Unavailable MALDONADO RAZA Primary Care Unavailable ROLY FONTANA Referring Unavailable MALDONADO RAZA Primary Care Unavailable Shay VILLANUEVA, Byron Urena Unavailable Santosh LOPEZ, Syeda Perez Unavailable Unavailkrystin Del Cid HAZARDOUS MATERIALS HANDLER.HIGH FREQUENCY MILL OPERATOR, Ifeoma M Unavailable MILADYS SHELTON MD Attending Unava soilaable MILADYS SHELTON MD Primary Care Unava barrington SHELTON, MILADYS VILLANUEVA Admitting Unava ilable MALDONADO RAZA MD Consulting Unavailable PROVIDER, UNKNOWN Consulting Unavailable Luz Marina VILLANUEVA, Dr. Okeefe Primary Care Provider Luz Marina VILLANUEVA, Dr. Okeefe Referring Provider Shay Henao Attending Provider [facility], Dr. Acosta Emergency Provider Jamarcus VILLANUEVA, Dr. Lemus Admit Provider Unavailable Jamarcus VILLANUEVA, Dr. Lemus Attending Provider Unavaila cinthia Vasques MD, Dr. Dia Other Provider Jose VILLANUEVA, Dr. Murillo Attending Provider Jamarcus VILLANUEVA, Dr. Lemus Other Provider Unavailable South Vasques Consulting Unavailable Luz Marina, Maldonado Primary Care Unavailable Kade Ricketts Attending Unavailable Kade Ricketts Admitting Unavailable Luz Marina, Maldonado Primary Care Unavailable Maldonado Raza Referring Unavailable Shay Henao Attending Unavailable Lidia Garcia Attending Unavailable Luz Marina, Maldonado Primary Care Unavailable Luz Marina, Maldonado Primary Care Unavailable Kade Ricketts Consulting Unavailable Kade Ricketts Attending Unavailable Kade Ricketts Admitting Unavailable South Vasques Consulting Unavailable MANDIE YOUNGER Attending Unavailable LUZ MARINA, SHARRON Primary Care Unavailable FER DURON Attending Unavailable LUZ MARINA, SHARRON Primary Care Unavailable LUZ MARINA, MALDONADO BRAXTON Primary Care Unavailable ROLY FONTANA Referring Unavailable LUZ MARINA, MALDONADO BRAXTON Primary Care Unavailable LUZ MARINA, MALDONADO BRAXTON Primary Care Unavailable KADE JONES Attending Unavailable ROLY FONTANA Referring Unavailable LUZ MARINA, MALDONADO BRAXTON Primary Care Unavailable MURTAZA CASTELLON Attending Unavailable LUZ MARINA, MALDONADO BRAXTON Primary Care Unavailable MURTAZA CASTELLON Referring Unavailable LUZ MARINA, MALDONADO BRAXTON Primary Care Unavailable ROLY FONTANA Referring Unavailable RAZA, MALDONADO CYNDI HIELIUD Primary Care Unavailable RAZA, MALDONADO CYNDI JESSEZOJohnny Primary Care Unavailable MURTAZA CASTELLON Referring Unavailable RAZA, MALDONADO CYNDI JESSEZOJohnny Primary Care Unavailable RAZA, MALDONADO CYNDI HIZOJohnny Primary Care Unavailable IFEOMA DEL CID Referring Unavailable RAZA, MALDONADO Primary Care Unavailable IFEOMA DEL CID Referring Unavailable RAZA, MALDONADO Primary Care Unavailable MARTHA, LEVESTER Attending Unavailable MARTHA, LEVESTER Referring Unavailable RAZA, MALDONADO Primary Care Unavailable MARTHA, LEVESTER Referring Unavailable RAZA, MALDONADO Primary Care Unavailable RAZA, MALDONADO Attending Unavailable RAZA, MALDONADO Primary Care Unavailable RAZA, MALDONADO Attending Unavailable RAZA, MALDONADO Primary Care Unavailable RAZA, MALDONADO Attending Unavailable RAZA, MALDONADO Primary Care Unavailable MARTHA, LEVESTER Admitting Unavailable MARTHA, LEVESTER Attending Unavailable RAZA, MALDONADO Primary Care Unavailable MARTHA, LEVESTER Admitting Unavailable MARTHA, LEVESTER Attending Unavailable RAZA, MALDONADO Primary Care Unavailable CHRISTOPHER SNELL Attending Unavailable RAZA, MALDONADO Primary Care Unavailable RAZA, MALDONADO Attending Unavailable RAZA, MALDONADO Primary Care Unavailable IFEOMA DEL CID Referring Unavailable RAZA, MALDONADO Primary Care Unavailable Allergies Allergy Classification Reported Allergen(s) Allergy Type Date of Onset Reaction(s) Facility (20 sources) Chlorhexidine; Translations: [CHLORHEXIDINE] Drug Allergy 9 Rash, [facility] (20 sources) Codeine; Translations: [codeine] Drug Allergy 7 GI Upset, [facility] (20 sources) Latex; Translations: [LATEX] Drug Allergy 2 Hives, Rash, [facility] (20 sources) Penicillins; Translations: [PENICILLINS] Propensity to adverse reactions 7 Swelling [facility] (20 sources) Penicillins Propensity to adverse reactions 7 Swelling, [facility] (5 sources) Penicillins Allergy to substance 2 Unknown, Anaphylaxis [facility] (1 source) Penicillin; Translations: [penicillin] Drug Allergy codeine [facility] (6 sources) Acetaminophen / Codeine; Translations: [ACETAMINOPHEN-CO DEINE] Drug Allergy 9 Nausea And Vomiting [facility] (20 sources) Penicillins Propensity to adverse reactions 7 Hives, Swelling [facility] Work Phone: (1 source) Codeine Drug Allergy [facility] (1 source) Penicillins Drug allergy (disorder) [facility] (1 source) Chlorhexidine Drug Allergy 5 [facility] (1 source) Codeine Drug Allergy 5 [facility] (1 source) Latex Drug allergy (disorder) 5 [facility] (1 source) Penicillins Drug allergy (disorder) 5 [facility] Medications Current Medications Medication Drug Class(es) Dates Sig (Normalized) Sig (Original) amLODIPine 10 mg oral tablet (20 sources) Dihydropyridine Calcium Channel Chris Start: 08-31-2024 End: 05-13-2025 take 1 tablet by mouth once daily amLODIPine (NORVASC) 10 mg tablet Indications: Primary hypertension Take 1 tablet by mouth once daily. 90 tablet 1 05/13/2025 Active Start: 02-29-2024 End: 08-26-2024 take 1 tablet by mouth once daily amLODIPine (NORVASC) 10 mg tablet Indications: Primary hypertension Take 1 tablet by mouth once daily. 90 tablet 1 02/29/2024 08/26/2024 Discontinued Start: 02-23-2023 End: 01-28-2025 take 1 tablet by mouth once daily amLODIPine (Norvasc) 5 mg tablet Take 1 tablet (5 mg) by mouth once daily. 05/29/2023 Active Start: 06-22-2022 take 1 tablet by ezekiel th once daily amLODIPine (NORVASC) 5 mg tablet Indications: Essential hypertension Take 1 tablet by mouth once daily. 90 tablet 1 06/22/2022 Active Start: 01-14-2022 End: 03-10-2022 take 1 tablet by mouth once daily amLODIPine (NORVASC) 5 mg tablet Indications: Essential hypertension Take 1 tablet by mouth once daily. 90 tablet 1 03/10/2022 Active Start: 11-16-2021 End: 01-13-2022 take 2 tablets by mouth once daily amLODIPine (NORVASC) 2.5 mg tablet Indications: Essential hypertension Take 2 tablets by mouth once daily. 30 tablet 1 11/16/2021 01/13/2022 Discontinued Start: 01-12-2021 End: 06-21-2022 take 1 tablet by mouth once daily Amlodipine 2.5 mg tablet Discontinued 2.5 mg PO DAILY January 12, 2021 12:00am June 21, 2022 12:39pm Start: 08-14-2018 End: 01-12-2021 take 1 tablet by mouth once daily Amlodipine 10 mg tablet Discontinued 10 mg PO DAILY August 14, 2018 1:00am January 12, 2021 12:00pm Comment on above: Take 2 tablets by mo uth once daily. Take 1 tablet by ezekiel th once daily. ascorbic acid 60 mg / calcium pantothenate 10 mg / d-biotin 0.3 mg / folic acid 0.8 mg / niacinamide 20 mg / pyridoxine 10 mg / riboflavin 1.7 mg / thiamine 1.5 mg / vitamin b12 0.006 mg oral tablet (5 sources) Vitamin B12, Vitamin C Start: 12-18-2020 take 1 tablet by mouth once daily Kenneth-Petey oral tablet Dose = 1 tab(s), Oral, qDay Start Date: 12/18/20 Status: Ordered Kenneth-Petey TABS T CALEB DIRECTED. Quantity: 0 Refills: 0 Ordered: 05-Apr-2022 DO Active aspirin 81 mg delayed release oral tablet (20 sources) Platelet Aggregation Inhibitor, Nonsteroidal Anti-inflammatory Drug Start: 05-10-2012 take 1 tablet by mouth once daily aspirin 81 mg EC tablet Take 1 tablet (81 mg) by mouth once daily. 05/10/2012 Active Aspirin 81 MG TA BS TAKE 1 TABLET DAILY. Quantity: 0 Refills: 0 Ordered: 05-Apr-2022 DO Active Comment on above: Take 1 tablet by ezekiel th once daily. atorvastatin 40 mg oral tablet (20 sources) HMG-CoA Reductase Inhibitor Start: 8 End: take 1 tablet by mouth once daily at bedtime atorvastatin (LIPITOR) 40 mg tablet Indications: Other hyperlipidemia Take 1 tablet by mouth daily at bedtime. 90 tablet 1 05/13/2025 Active Comment on above: Take 1 tablet by ezekiel th daily at bedtime. B Complex-Vitamin C-Folic Acid (Kenneth-Petey) 0.8 mg Tablet (5 sources) Start: take 1 tablet by mouth once daily B Complex-Vitamin C-Folic Acid (Kenneth-Petey) 0.8 mg Tablet Active 1 {tbl} PO DAILY January 11, 2021 12:00am Start: 01-11-2021 take 1 tablet by ezekiel th once daily B Complex-Vitamin C-Folic Acid (Kenneth-Petey) 0.8 mg Tablet Active 1 TABLET PO DAILY January 10, 2021 11:00pm Start: 01-11-2021 take 1 tablet by ezekiel th once daily B Complex-Vitamin C-Folic Acid (Kenneth-Petey) 0.8 mg Tablet Active 1 TABLET PO DAILY January 11, 2021 12:00am benoxinate hydrochloride 4 mg/ml / fluorescein sodium 3 mg/ml ophthalmic solution (3 sources) Diagnostic Dye Start: 01-02-2025 End: 01-03-2025 fluorescein-benoxinate 0.3-0.4 % 1 drop (FLURESS) Start: 01-02-2025 End: 01-03-2025 1 drop, BOTH EYES, DIRECT ED, Starting on Mon01/02/25 at 1400, Until Mon01/03/25 at 0159, Administer for applanation tonometry. In the event of a Fluress shortage, administer [place]-Fluor 1 drop into both eyes as directed for applanation tonometry Start: 06-27-2023 End: 06-27-2023 fluorescein-benoxinate 0.3-0 .4 % 1 Drop (FLURESS) Blood-Glucose Meter (BLOOD GLUCOSE MONITORING) monitoring kit (20 sources) Start: 04-05-2017 Blood-Glucose Meter (BLOOD GLUCOSE MONITORING) monitoring kit 1 Each three times daily. E11.65. On insulin. 1 Each 04/05/2017 Active Start: 04-05-2017 Blood-Glucose Meter (BLOOD GLUCOSE MONITORING) monitoring kit 1 Each three times daily. E11.65. On insulin. 1 Each 0 04/05/2017 Suspended Start: 04-05-2017 Blood-Glucose Meter (BLOOD GLUCOSE MONITORING) monitoring kit 1 Each three times daily. E11.65. On insulin. 1 Each 0 04/05/2017 Active Comment on above: 1 Each three times d aily. E11.65. On insulin. ciprofloxacin 3 mg/ml ophthalmic solution (20 sources) Quinolone Antimicrobial Start: 11-09-19 End: 12-06-19 take 1 drop(s) into the eye(s) four times daily ciprofloxacin (Ciloxan) 0.3 % ophthalmic solution Administer 1 drop into affected eye(s) 4 times a day. 01/09/2024 Active Start: 09-19-2022 End: 05-31-2023 take 1 tablet by mouth twice daily Ciprofloxacin Hcl (Cipro) 500 mg tablet Discontinued 500 mg PO TWICE A DAY 14 September 19, 2022 1:00am May 31, 2023 9:34am Comment on above: Use 1 Drop in the le ft eye four times daily. cloNIDine hydrochloride 0.2 mg oral tablet (20 sources) Central alpha-2 Adrenergic Agonist Start: take 1 tablet by mouth once daily at bedtime cloNIDine HCl (CATAPRES) 0.1 mg tablet Take 1 tablet by mouth daily at bedtime. 30 tablet 5 02/20/2025 Active Start: 06-13-2024 End: 05-13-2025 take 1 tablet by mouth twice daily cloNIDine HCl (CATAPRES) 0.2 mg tablet Indications: Primary hypertension Take 1 tablet by mouth two times a day. 60 tablet 5 05/13/2025 Active Start: 08-14-2018 End: 01-28-2025 take 1 tablet by mouth once daily at bedtime cloNIDine (Catapres) 0.3 mg tablet Take 1 tablet (0.3 mg) by mouth once daily at bedtime. 05/29/2023 Active Comment on above: Take 1 tablet by ezekiel th daily at bedtime. docusate sodium 100 mg oral capsule (20 sources) Start: 05-17-2019 take 1 capsule by mouth every twelve hours as needed docusate sodium (COLACE) 100 mg capsule Take 1 capsule by mouth twice daily as needed for Constipation. 05/17/2019 Active Start: 05-17-2019 take 1 capsule by mo [facility] every twelve hours docusate sodium (Colace) 100 mg capsule Take 1 capsule (100 mg) by mouth every 12 hours if needed. 05/17/2019 Active Comment on above: Take 1 capsule by mo [facility] twice daily as needed for Constipation. ferric citrate 1000 mg oral tablet (20 sources) Start: 03-10-2021 take 1 tablet by mouth once daily ferric citrate 210 mg iron tab Indications: ESRD on dialysis (HCC) Take 1 tablet by mouth once daily. 03/10/2021 Active Start: 01-11-2021 End: 06-21-2022 take 1 tablet by mouth three times daily at mealtime Ferric Citrate (Auryxia) 210 mg iron Tablet Discontinued 210 mg PO 3 TIMES DAILY WITH MEALS January 11, 2021 12:00am June 21, 2022 12:38pm Start: 12-18-2020 Auryxia 210 mg oral tablet Dose : 630 mg = 3 tab(s), Oral, TIDM Start Date: 12/18/20 Status: Ordered Comment on above: Take 1 tablet by ezekiel once daily. furosemide 40 mg oral tablet (7 sources) Loop Diuretic Start: 01-30-2025 End: 05-13-2025 take 1 tablet by mouth once daily furosemide (LASIX) 40 mg tablet Indications: Congestive heart failure, unspecified HF chronicity, unspecified heart failure type (HCC) Take 1 tablet by mouth once daily. 90 tablet 1 05/13/2025 Active 3 ml insulin glargine 100 unt/ml pen injector (20 sources) Insulin Analog Start: 01-28-2025 Insulin Glargine (Lantus Solostar U-100 Insulin) 100 unit/mL (3 mL) insulin pen Active 48 U SC AT BEDTIME January 28, 2025 12:00am Start: 01-28-2025 Insulin Glargi ne (Insulin Glargine 100 Unit/Ml (3 Ml) Subcutaneous Pen) 100 unit/mL (3 mL) insulin pen Active 48 U SC AT BEDTIME January 28, 2025 12:00am Start: 12-05-2024 insulin glargi ne (LANTUS SOLOSTAR U-100 INSULIN) 100 unit/mL (3 mL) Indications: Controlled type 2 diabetes mellitus without complication, with long-term current use of insulin (HCC) Inject 48 Units subcutaneously daily at bedtime. 15 mL 5 12/05/2024 Active 3 ml insulin lispro 100 unt/ml pen injector (20 sources) Insulin Analog Start: 05-13-2024 End: 12-05-2024 inject 8 [IU] by subcutaneous injection three times daily before mealtime insulin lispro (HUMALOG KWIKPEN INSULIN) 100 unit/mL Indications: Controlled type 2 diabetes mellitus without complication, with long-term current use of insulin (HCC) Inject 8 Units subcutaneously three times a day before meals. Add 1 unit for each 50 mg/dl above 150 15 mL 5 12/05/2024 Active Start: 06-13-2023 End: 05-10-2024 inject 8 [IU] by subcutaneous injection three times daily before mealtime insulin lispro (HUMALOG KWIKPEN INSULIN) 100 unit/mL Inject 8 Units subcutaneously three times a day before meals. Add 1 unit for each 50 mg/dl above 150 15 mL 5 06/13/2023 05/10/2024 Discontinued Comment on above: Inject 8 Units subcu taneously three times a day before meals. Add 1 unit for each 50 mg/dl above 150 levothyroxine sodium 0.125 mg oral tablet (20 sources) l-Thyroxine Start: 022 End: 025 take 1 tablet by mouth once daily for thyroid dysfunction levothyroxine (SYNTHROID) 125 mcg tablet Indications: Hypothyroidism, unspecified type Take 1 tablet by mouth once daily. Take on empty stomach. For Thyroid 90 tablet 1 05/13/2025 Active Start: 12-18-2020 levothyroxine 112 mcg (0.112 mg) oral tablet Dose : 112 mcg = 1 tab(s), Oral, qDay Start Date: 12/18/20 Status: Ordered Start: 08-14-2018 End: 05-31-2023 take 1 capsule by mouth once daily Levothyroxine 112 mcg capsule Discontinued 112 ug PO DAILY August 14, 2018 1:00am May 31, 2023 9:46am Comment on above: Take 1 tablet by ezekiel th once daily. Take on empty stomach. For Thyroid lisinopril 40 mg oral tablet (20 sources) Angiotensin Converting Enzyme Inhibitor Start: 2 End: take 1 tablet by mouth once daily lisinopril (ZESTRIL) 40 mg tablet Indications: Primary hypertension Take 1 tablet by mouth once daily. 90 tablet 1 05/13/2025 Active Start: 08-14-2018 End: 06-21-2022 take 1 tablet by mouth twice daily Lisinopril 20 mg tablet Discontinued 20 mg PO TWICE A DAY August 14, 2018 1:00am June 21, 2022 12:38pm Comment on above: Take 1 tablet by ezekiel th once daily. metoprolol tartrate 25 mg oral tablet (20 sources) beta-Adrenergic Chris Start: 08-31-2024 End: 03-12-2025 take 1 tablet by mouth every twelve hours metoprolol tartrate, short acting, (LOPRESSOR) 25 mg tablet Indications: ASCVD (arteriosclerotic cardiovascular disease) Take 1 tablet by mouth every 12 hours. 180 tablet 1 03/12/2025 Active Start: 06-21-2023 End: 08-26-2024 take 1 tablet by mouth every twelve hours metoprolol tartrate, short acting, (LOPRESSOR) 25 mg tablet Indications: ASCVD (arteriosclerotic cardiovascular disease) Take 1 tablet by mouth every 12 hours. 180 tablet 1 02/29/2024 08/26/2024 Discontinued Comment on above: Take 1 tablet by ezekiel every 12 hours. 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 3 02/17/2018 Suspended Start: 02-17-2018 take 1 tablet by ezekiel th once daily NEPHRO-PETEY 0.8 mg tab Indications: CKD (chronic kidney disease) stage V requiring chronic dialysis (HCC) Take 1 tablet by mouth once daily. 3 02/17/2018 Active Comment on above: Take 1 tablet by ezekiel th once daily. Nephro-Petey 0.8 mg tablet (16 sources) take 1 tablet by mouth once daily Nephro-Petey 0.8 mg tablet Take 1 tablet by mouth once daily. Active take 1 tablet by mouth once sai y Nephro-Petey 0.8 mg tablet Take 1 tablet by mouth once daily. 0 Active nitroglycerin 0.4 mg sublingual tablet (20 sources) Nitrate Vasodilator Start: 06-11-2024 End: 06-11-2024 nitroglycerin sublingual (NITROQUICK) 0.4 mg SL tablet Dissolve 1 tablet under the tongue every 5 minutes as needed. 25 tablet 1 06/11/2024 Active Start: 06-11-2024 nitroglycerin (Nitrostat) 0.4 mg SL tablet DISSOLVE ONE TABLET UNDER THE TONGUE EVERY 5 MINUTES NEEDED 06/11/2024 Active Comment on above: Dissolve 0.4 mg unde r the tongue every 5 minutes as needed. phenylephrine hydrochloride 25 mg/ml ophthalmic solution (3 sources) alpha-1 Adrenergic Agonist Start: 01-02-2025 End: 01-03-2025 PHENYLephrine 2.5 % 1 drop (AK-DILATE, JUAN CARLOS-SYNEPHRINE) Start: 01-02-2025 End: 01-03-2025 1 drop, BOTH EYES, DIRECT ED, Starting on Mon01/02/25 at 1400, Until Mon01/03/25 at 0159, Administer for dilation PROTECT FROM LIGHT Start: 06-27-2023 End: 06-27-2023 PHENYLephrine 2.5 % 1 Drop ( AK-DILATE, JUAN CARLOS-SYNEPHRINE) proparacaine hydrochloride 5 mg/ml ophthalmic solution (2 sources) Local Anesthetic Start: 01-02-2025 End: 01-03-2025 proparacaine 0.5 % 1 drop (ALCAINE) Start: 06-27-2023 End: 06-27-2023 proparacaine 0.5 % 1 Drop (A LCAINE) sucroferric oxyhydroxide 500 mg chewable tablet (20 sources) Start: 05-29-2023 Velphoro 500 m g tablet,chewable chewable tablet Chew 1 tablet (500 mg) 3 times a day. 05/29/2023 Active Velphoro CHEW Ta ke as directed Quantity: 0 Refills: 0 Ordered: 05-Apr-2022 DO Active SUMAtriptan 50 mg oral tablet (20 sources) Serotonin-1b and Serotonin-1d Receptor Agonist Start: 01-28-2025 take 1 tablet by mouth twice daily as needed Sumatriptan Succinate 50 mg tablet Active 50 mg PO TWICE A DAY as needed for migraine January 28, 2025 12:00am Start: 05-11-2021 End: 12-05-2024 take 1 tablet by mouth every two hours SUMAtriptan (IMITREX) 50 mg tablet Indications: Migraine without aura, not intractable, without status migrainosus Take one tablet by mouth at onset of migraine. May repeat in 2 hours if ineffective 12 tablet 2 12/05/2024 Active Comment on above: Take one tablet by m outh at onset of migraine. May repeat in 2 hours if ineffective tropicamide 10 mg/ml ophthalmic solution (3 sources) Anticholinergic Start: 01-02-2025 End: 01-03-2025 tropicamide 1 % 1 drop (MYDRIACYL) Start: 01-02-2025 End: 01-03-2025 1 drop, BOTH EYES, DIRECT ED, Starting on Mon01/02/25 at 1400, Until Mon01/03/25 at 0159, Administer for dilation Start: 06-27-2023 End: 06-27-2023 tropicamide 1 % 1 Drop (MYDR IACYL) Completed/Discontinued Medications Medication Drug Class(es) Dates Sig (Normalized) Sig (Original) acetaminophen 325 mg / HYDROcodone bitartrate 5 mg oral tablet (20 sources) Opioid Agonist Start: 06-21-2022 End: 05-31-2023 Hydrocodone-Acetami nophen 5-325 mg tablet Discontinued 1 {tbl} PO EVERY 4 HOURS NEEDED as needed for Pain 06 05June 21, 2022 May 31, 2023 9:35am Start: 06-21-2022 take 1 tablet by ezekiel every four hours as needed Hydrocodone-Acetaminophen Active 1 TABLE T PO EVERY 4 HOURS NEEDED 06 05June 21, 2022 Start: 11-26-2021 End: 12-01-2021 take 1 tablet by mouth every eight hours as needed for pain HYDROcodone-acetaminophen (NORCO) 5-325 mg per tablet Indications: Acute left flank pain , Gross hematuria Take 1 tablet by mouth every 8 hours as needed for pain for up to 5 days. 15 tablet 0 11/26/2021 12/01/2021 Start: 12-11-2018 End: 12-14-2018 Hydrocodone-Acetaminophen 1 TABLET tablet Discontinued 1 {tbl} PO EVERY 6 HOURS NEEDED as needed for Pain 9 December 11, 2018 2:17pm December 13, 2018 12:00am December 14, 2018 12:09am Start: 12-11-2018 End: 12-14-2018 take 1 tablet by mouth every six hours as needed Hydrocodone-Acetaminophen Discontinued 1 TABLET PO EVERY 6 HOURS NEEDED 9 3 December 11, 2018 2:17pm December 14, 2018 12:09am Start: 12-06-2018 End: 12-09-2018 Hydrocodone-Acetaminophen 1 TABLET tablet Discontinued 1 {tbl} PO EVERY 6 HOURS NEEDED as needed for Pain 10 December 06, 2018 12:00am December 08, 2018 12:00am December 09, 2018 12:08am Start: 12-06-2018 End: 12-09-2018 take 1 tablet by mouth every six hours as needed Hydrocodone-Acetaminophen Discontinued 1 TABLET PO EVERY 6 HOURS NEEDED 10 December 06, 2018 12:00am December 09, 2018 12:08am Start: 09-20-2018 End: 09-23-2018 Hydrocodone-Acetaminophen 1 TABLET tablet Discontinued 1 {tbl} PO EVERY 6 HOURS NEEDED as needed for Pain 8 September 20, 2018 1:00am September 22, 2018 1:00am September 23, 2018 1:09am Start: 09-20-2018 End: 09-23-2018 take 1 tablet by mouth every six hours as needed Hydrocodone-Acetaminophen Discontinued 1 TABLET PO EVERY 6 HOURS NEEDED 8 3 September 20, 2018 1:00am September 23, 2018 1:09am Comment on above: Take 1 tablet by ezekiel th every 8 hours as needed for pain for up to 5 days. brimonidine tartrate 1.5 mg/ml ophthalmic solution (18 sources) alpha-Adrenergic Agonist Start: 05-31-2023 End: 05-31-2023 take 1 drop(s) into the eye(s) three times daily Brimonidine 0.15 % drops Discontinued 1 NMA OPHTHALMIC THREE TIMES A DAY May 31, 2023 12:00am May 31, 2023 9:45am INSTILL 1 DROP INTO LEFT EYE 3 TIMES A DAY Start: 04-26-2023 take 1 drop(s) into the eye(s) three times daily brimonidine (AlphaGAN P) 0.15 % ophthalmic solution INSTILL 1 DROP INTO LEFT EYE 3 TIMES A DAY 04/26/2023 Active erythromycin 0.005 mg/mg ophthalmic ointment (20 sources) Macrolide, Macrolide Antimicrobial Start: 11-09-2023 End: 02-29-2024 erythromycin (ROMYCIN) 5 mg/gram (0.5 %) ophthalmic ointment Use 1 application in the left eye daily at bedtime. Apply 1/2 inch ribbon per application 0 11/09/2023 02/29/2024 Discontinued Comment on above: Use 1 application in the left eye daily at bedtime. Apply 1/2 inch ribbon per application gadoterate meglumine (Dotarem) 0.5 mmol/mL contrast injection 27 mL (1 source) Start: 11-26-2024 End: 11-26-2024 inject 27 mL intravenously once 27 mL, intravenous, Once in imaging, Starting on Mon11/26/24 at 0820, For 1 dose, Administer undiluted as rapid I.V. bolus injection 3 ml insulin aspart, human 100 unt/ml pen injector (20 sources) Insulin Analog Start: 05-04-2022 End: 06-13-2023 inject 8 [IU] by subcutaneous injection three times daily before mealtime insulin aspart U-100 (NOVOLOG FLEXPEN U-100 INSULIN) 100 unit/mL (3 mL) Inject 8 Units subcutaneously three times a day before meals. Add 1 unit for each 50 mg/dl above 150 15 mL 5 06/12/2023 06/13/2023 Discontinued (Not on Formulary) Start: 08-12-2021 End: 05-04-2022 insulin aspart U-100 (NOVOLO G U-100 INSULIN ASPART) 100 unit/mL Indications: Controlled type 2 diabetes mellitus without complication, with long-term current use of insulin (HCC) Inject 8 Units subcutaneously three times daily before meals. Add 1 units for each 50 mg/dL above 150. 40 mL 5 05/02/2022 05/04/2022 Discontinued (Not on Formulary) Start: 01-12-2021 End: 01-28-2025 Insulin Aspart U-100 (Novolo g Flexpen U-100 Insulin) 100 unit/mL insulin pen Discontinued 8 U SC 3 TIMES DAILY WITH MEALS 0 January 12, 2021 11:52am January 28, 2025 9:19am Start: 12-18-2020 NovoLOG 100 un its/mL injectable solution Dose : 10 unit(s) =, Subcutaneous, TIDAC Start Date: 12/18/20 Status: Ordered Start: 08-14-2018 End: 01-12-2021 Insulin Aspart U-100 (Novolo g Flexpen U-100 Insulin) 100 unit/mL insulin pen Discontinued 10 U SC 3 TIMES DAILY WITH MEALS August 14, 2018 1:00am January 12, 2021 11:52am Comment on above: Inject 8 Units subcu taneously three times daily before meals. Add 1 units for each 50 mg/dL above 150. Inject 8 Units subcu taneously three times daily before meals. Add 1 unit for each 50 mg/dl above 150 Inject 8 Units subcu taneously three times a day before meals. Add 1 unit for each 50 mg/dl above 150 3 ml insulin detemir 100 unt/ml pen injector (20 sources) Insulin Analog Start: 08-12-2021 End: 12-05-2024 insulin detemir U-100 (LEVEMIR FLEXTOUCH U-100 INSULIN) 100 unit/mL (3 mL) injection pen Indications: Controlled type 2 diabetes mellitus without complication, with long-term current use of insulin (HCC) Inject 48 Units subcutaneously daily at bedtime. 5 each 5 12/05/2024 12/05/2024 Discontinued (Availability) Start: 01-12-2021 End: 01-28-2025 Insulin Detemir U-100 100 UNITS/ML insulin pen Discontinued 48 U SC AT BEDTIME 0 January 12, 2021 11:52am January 28, 2025 9:19am Start: 01-12-2021 Insulin Detemi r U-100 Active 48 UNIT SC AT BEDTIME 0 January 12, 2021 11:52am Start: 12-18-2020 inject 1 dose by sub cutaneous injection once daily at bedtime Levemir FlexTouch 100 units/mL 3 mL Pen Dose : 54 unit(s) =, Subcutaneous, qHS Start Date: 12/18/20 Status: Ordered Start: 09-13-2018 End: 01-12-2021 Insulin Detemir U-100 100 UNITS/ML insulin pen Discontinued 54 U SC AT BEDTIME September 13, 2018 1:00am January 12, 2021 11:52am Start: 09-13-2018 End: 01-12-2021 Insulin Detemir U-100 Discontinued 54 UNITS SC AT BEDTIME September 13, 2018 1:00am January 12, 2021 11:52am inject 54 [IU] by javed bcutaneous injection at bedtime Levemir 100 UNIT/ML Subcutaneous Solution Take 54 units at bedtime Quantity: 0 Refills: 0 Ordered: 05-Apr-2022 DO Active Comment on above: Inject 48 Units subc utaneously daily at bedtime. ketorolac tromethamine 5 mg/ml ophthalmic solution (20 sources) Nonsteroidal Anti-inflammatory Drug, Cyclooxygenase Inhibitor Start: 11-09-19 End: 07-23-20 take 1 drop(s) into the eye(s) four times daily ketorolac (Acular) 0.5 % ophthalmic solution INSTILL ONE DROP IN THE LEFT EYE FOUR TIMES DAILY 11/09/2023 07/23/2024 Discontinued (Therapy completed) Start: 11-09-2023 End: 02-29-2024 take 1 drop(s) into the eye(s) four times daily keTORolac (ACULAR) 0.5 % ophthalmic solution Use 1 Drop in the left eye four times daily. 5 mL 0 11/09/2023 02/29/2024 Discontinued Comment on above: Use 1 Drop in the le ft eye four times daily. levoFLOXacin 750 mg oral tablet (5 sources) Quinolone Antimicrobial Start: 06-21-20 End: 05-31-20 take 1 tablet by mouth once daily Levofloxacin 750 mg tablet Discontinued 750 mg PO DAILY June 21, 2022 12:00am May 31, 2023 9:36am ondansetron 4 mg oral tablet (2 sources) Serotonin-3 Receptor Antagonist Start: 06-08-20 End: 01-29-20 take 1 tablet by mouth every six hours as needed for nausea and vomiting Ondansetron Hcl 4 mg tablet Discontinued 4 mg PO EVERY 6 HOURS as needed for nausea and vomiting June 08, 2023 12:00am January 28, 2025 9:19am oxyCODONE hydrochloride 5 mg oral tablet (2 sources) Opioid Agonist Start: 06-06-20 End: 01-29-20 take 1 tablet by mouth every six hours as needed for pain Oxycodone 5 mg Tablet Discontinued 5 mg PO EVERY 6 HOURS NEEDED as needed for Pain Score 6-10 06 06June 06, 2023 January 28, 2025 9:19am pantoprazole 40 mg delayed release oral tablet (2 sources) Proton Pump Inhibitor Start: 06-08-20 End: 01-29-20 25 take 1 tablet by mouth once daily Pantoprazole 40 mg tablet,delayed release (DR/EC) Discontinued 40 mg PO DAILY June 08, 2023 12:00am January 28, 2025 9:22am perflutren lipid microspheres (Definity) injection 2 mL of dilution (2 sources) Start: 09-18-19 End: 09-18-19 perflutren lipid microspheres (Definity) injection 2 mL of dilution polyethylene glycol 3350 103030 mg / potassium chloride 2970 mg / sodium bicarbonate 6740 mg / sodium chloride 5860 mg / sodium sulfate 79890 mg powder for oral solution (20 sources) Osmotic Laxative Start: 11-17-19 peg 3350-Electrolytes (GOLYTELY) 236-22.74-6.74 -5.86 gram suspension Indications: Special screening for malignant neoplasms, colon Refer to printed prep instructions from your provider. 4000 mL 0 11/16/2021 Active Comment on above: Refer to printed pre p instructions from your provider. prednisoLONE acetate 10 mg/ml ophthalmic suspension (20 sources) Corticosteroid Start: 05-30-20 End: 07-23-20 take 1 drop(s) into the eye(s) four times daily prednisoLONE acetate (Pred-Forte) 1 % ophthalmic suspension INSTILL ONE DROP IN THE LEFT EYE FOUR TIMES DAILY 05/30/2024 07/23/2024 Discontinued (Therapy completed) Start: 02-13-2024 End: 02-29-2024 prednisoLONE acetate (PRED F ORTE) 1 % ophthalmic suspension Use 1 Drop in the left eye two times a day. 10 mL 5 02/13/2024 02/29/2024 Discontinued Start: 11-09-2023 End: 02-13-2024 prednisoLONE acetate (PRED F ORTE) 1 % ophthalmic suspension Use 1 Drop in the left eye four times daily. 10 mL 5 11/09/2023 02/13/2024 Discontinued Comment on above: Use 1 Drop in the le ft eye four times daily. regadenoson (Lexiscan) injection 0.4 mg (1 source) Start: 04-16-20 End: 04-16-20 0.4 mg, intravenous, Once, On Mon04/16/24 at 1100, For 1 dose sulfamethoxazole 800 mg / trimethoprim 160 mg oral tablet (3 sources) Dihydrofolate Reductase Inhibitor Antibacterial, Sulfonamide Antimicrobial Start: 12-01-19 End: 12-11-19 take 1 tablet by mouth twice daily sulfamethoxazole-t rimethoprim (BACTRIM DS) 800-160 mg per tablet Take 1 tablet by mouth twice daily for 10 days. 20 tablet 0 11/30/2021 12/10/2021 Comment on above: Take 1 tablet by ezekiel twice daily for 10 days. Tc-99m tetrofosmin (Myoview) injection 11.5 millicurie (1 source) Start: 04-16-20 End: 04-16-20 11.5 millicurie, intravenous, Once in imaging, Starting on Mon04/16/24 at 0947, For 1 dose, Administer 45 to 90 minutes prior to imaging unless otherwise indicated. Tc-99m tetrofosmin (Myoview) injection 32 millicurie (1 source) Start: 04-16-20 End: 04-16-20 32 millicurie, intravenous, Once in imaging, Starting on Mon04/16/24 at 1335, For 1 dose, Administer 45 to 90 minutes prior to imaging unless otherwise indicated. Problems Active Problems Problem Classification Problem Date Documented Date Episodic/Chronic Abdominal pain (1 source) Left flank pain; Translations: [Unspecified abdominal pain] Episodic Anxiety disorders (10 sources) Anxiety; Translations: [Anxiety disorder, unspecified] Onset: 06-12-2009-06-2019 Chronic Cardiac dysrhythmias (20 sources) Ventricular tachycardia; Translations: [Ventricular tachycardia] Onset: 05-17-20 19 08-29-2019 Chronic Cataract (10 sources) Cataract; Translations: [Artificial lens present] Onset: 07-22-20 24 01-03-2018 Chronic Comment on above: Medical clearance on chart for surgery 01/08/18. 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] 11-16-2023 Episodic Congestive heart failure; nonhypertensive (20 sources) Congestive heart failure; Translations: [Heart failure, unspecified] Onset: 11-09-19 24 01-11-2021 Chronic Coronary atherosclerosis and other heart disease (20 sources) Arteriosclerotic vascular disease; Translations: [Atherosclerotic heart disease of [place] coronary artery without angina pectoris] Onset: 05-10-20 12 05-10-2012 Chronic Deficiency and other anemia (7 sources) Anemia of chronic disease; Translations: [Anemia in other chronic diseases classified elsewhere] Onset: 06-12-20 23 07-22-2024 Chronic Deficiency and other anemia (1 source) Anemia in chronic kidney disease; Translations: [Anemia of chronic renal failure, stage 5 (HCC)] Onset: 02-07-20 Chronic Diabetes mellitus with complications (13 sources) Type 2 diabetes mellitus; Translations: [Type 2 diabetes mellitus with diabetic chronic kidney disease] Onset: 07-22-20 24 01-12-2021 Chronic Diabetes mellitus without complication (20 sources) Type 2 diabetes mellitus without complication; Translations: [Type 2 diabetes mellitus without complications] Onset: 09-04-18 86 11-16-2021 Chronic Digestive congenital anomalies (1 source) Tortuous colon; Translations: [Other specified congenital malformations of intestine] Chronic Disorders of lipid metabolism (20 sources) Hyperlipidemia; Translations: [Hyperlipidemia, unspecified] Onset: 09-04-19 00 03-22-2012 Chronic Esophageal disorders (10 sources) Gastroesophageal reflux disease; Translations: [Gastro-esophageal reflux disease without esophagitis] Onset: 07-22-20 24 09-06-2019 Chronic Essential hypertension (20 sources) Hypertensive disorder; Translations: [Essential (primary) hypertension] Onset: 09-04-19 02 05-21-2019 Chronic Headache; including migraine (20 sources) Migraine; Translations: [Migraine, unspecified, not intractable, without status migrainosus] Onset: 05-21-20 21 01-03-2018 Chronic Heart valve disorders (1 source) Systolic murmur; Translations: [Cardiac murmur, unspecified] 10-26-2023 Episodic Hypertension with complications and secondary hypertension (20 sources) Hypertensive left ventricular hypertrophy; Translations: [Hypertensive heart disease without heart failure] Onset: 07-22-20 24 07-23-2024 Chronic Immunizations and screening for infectious disease (5 sources) Vaccination needed; Translations: [Encounter for immunization] Onset: 05-13-2006-29-2023 Episodic Inflammation; infection of eye (except that caused by tuberculosis or sexually transmitteddisease) (1 source) Neurotrophic keratoconjunctivitis of left eye; Translations: [Neurotrophic keratoconjunctivitis, left eye] 11-22-2023 Chronic Malaise and fatigue (3 sources) Physical deconditioning; Translations: [Other malaise] Onset: 05-13-2005-13-2025 Episodic Open wounds of extremities (5 sources) Avulsion of toenail; Translations: [Unspecified open wound of unspecified toe(s) with damage to nail, initial encounter] Onset: 01-01-20 25 12-31-2024 Episodic Other and ill-defined heart disease (5 sources) Heart disease; Translations: [Heart disease, unspecified] 09-06-2019 Chronic Other and ill-defined heart disease (5 sources) Diastolic dysfunction; Translations: [Other ill-defined heart diseases] Onset: 07-22-2007-22-2024 Chronic Other and unspecified benign neoplasm (1 source) Tubular adenoma ; Translations: [Benign neoplasm, unspecified site] Episodic Other circulatory disease (20 sources) Acquired arteriovenous fistula; Translations: [Arteriovenous fistula, acquired] Onset: 06-13-20 Chronic Other circulatory disease (1 source) H/O: heart failure; Translations: [Personal history of other diseases of the circulatory system] 10-26-2023 Episodic Other circulatory disease (2 sources) History of carotid artery stenosis; Translations: [Personal history of other diseases of the circulatory system] 12-07-2023 Episodic Other diseases of kidney and ureters (20 sources) Hyperparathyroidism due to renal insufficiency; Translations: [Secondary hyperparathyroidism of renal origin] Onset: 06-20-2006-20-2023 Chronic Other ear and sense organ disorders (5 sources) Pain of ear structure; Translations: [Otalgia, unspecified ear] 06-21-2022 Episodic Other eye disorders (1 source) Corneal transplant status; Translations: [Status post corneal transplant] Onset: 01-03-20 Chronic Other eye disorders (2 sources) Idiopathic corneal edema, bilateral; Translations: [Idiopathic corneal edema] 06-27-2023 Episodic Other female genital disorders (1 source) Vaginal discharge; Translations: [Other specified noninflammatory disorders of vagina] Episodic Other gastrointestinal disorders (2 sources) Personal history of other diseases of the digestive system; Translations: [History of small bowel obstruction] 06-14-2023 Episodic Other lower respiratory disease (1 source) Shortness of breath; Translations: [Shortness of breath] Onset: 02-06-20 Episodic Other lower respiratory disease (8 sources) Hypoxia; Translations: [Hypoxemia] Onset: 02-07-2002-06-2025 Episodic Other lower respiratory disease (2 sources) Dyspnea on exertion; Translations: [Other forms of dyspnea] 05-13-2025 Episodic Other lower respiratory disease (1 source) Other forms of dyspnea; Translations: [Dyspnea on exertion] Onset: 05-13-20 Episodic Other nutritional; endocrine; and metabolic disorders (1 source) H/O: diabetes mellitus; Translations: [Personal history of other endocrine, nutritional and metabolic disease] 06-11-2024 Episodic [place]-; endo-; and myocarditis; cardiomyopathy (except that caused by tuberculosis or sexually transmitted disease) (20 sources) Cardiomyopathy associated with another disorder; Translations: [Cardiomyopathy in diseases classified elsewhere] Onset: 09-18-1909-18-2023 Chronic Peripheral and visceral atherosclerosis (20 sources) Peripheral vascular disease, unspecified; Translations: [Peripheral vascular disease, unspecified] Onset: 07-10-2007-10-2024 Chronic Residual codes; unclassified (14 sources) H/O: tissue/organ recipient; Translations: [Unspecified organ or tissue replaced by transplant] Onset: 07-22-2007-22-2024 Chronic Residual codes; unclassified (7 sources) Awaiting transplantation of kidney; Translations: [Awaiting organ transplant status] Onset: 07-23-2007-23-2024 Chronic Residual codes; unclassified (2 sources) Awaiting organ transplant status; Translations: [Awaiting organ transplant status] Onset: 07-23-20 Chronic Residual codes; unclassified (5 sources) History of excision of intestinal structure; Translations: [Acquired absence of other specified parts of digestive tract] 09-06-2019 Episodic Residual codes; unclassified (7 sources) Family history of cancer of colon; Translations: [Family history of malignant neoplasm of digestive organs] 08-04-2020 Episodic Residual codes; unclassified (1 source) History of cardiac catheterization; Translations: [Other specified postprocedural states] 12-07-2023 Episodic Superficial injury; contusion (1 source) Abrasion of left cornea; Translations: [Injury of conjunctiva and corneal abrasion without foreign body, left eye, initial encounter] 11-22-2023 Episodic Thyroid disorders (20 sources) Hypothyroidism; Translations: [Hypothyroidism, unspecified] Onset: 03-30-2003-30-2012 Chronic Thyroid disorders (5 sources) Disorder of thyroid gland; Translations: [Disorder of thyroid, unspecified] 09-06-2019 Episodic Transient cerebral ischemia (5 sources) Transient cerebral ischemia; Translations: [Transient cerebral ischemic attack, unspecified] Onset: 07-22-2007-22-2024 Chronic Unclassified (2 sources) Unknown / UNK(Unknown) Onset: 09-18-19 Unclassified (1 source) Eye glasses, device (physical object) 01-03-2018 Unclassified (2 sources) Awaiting transplantation of kidney 07-23-2024 Unclassified (1 source) Cancer cervix screening status 12-05-2024 Unclassified (2 sources) S91.209A - Unspecified open wound of unspecified toe(s) with damage to nail, initial encounter Past or Other Problems Problem Classification Problem Date Documented Da te Episodic/Chronic Abdominal hernia (20 sources) Obstructed hernia of anterior abdominal wall; Translations: [Other and unspecified ventral hernia with obstruction, without gangrene] Onset: 12-09-2021 Resolved: 06-29-2023 12-09-2021 Episodic Calculus of urinary tract (20 sources) Kidney stone; Translations: [Calculus of kidney] Onset: 06-12-2007 Resolved: 03-22-2012 03-22-2012 Episodic Chronic kidney disease (2 sources) Chronic kidney disease Onset: 09-18-2017 Complication of device; implant or graft (20 sources) Arterial steal syndrome; Translations: [Other specified complication of vascular prosthetic devices, implants and grafts, initial encounter] Onset: 05-17-2019 Resolved: 02-23-2023 05-17-2019 Chronic Conditions associated with dizziness or vertigo (15 sources) Dizziness of unknown cause; Translations: [Dizziness and giddiness] Onset: 07-22-2024 2021 Episodic Fluid and electrolyte disorders (20 sources) Hyperkalemia; Translations: [Hyperkalemia] Onset: 06-12-2023 Resolved: 09-14-2023 06-20-2023 Episodic Genitourinary symptoms and ill-defined conditions (20 sources) [place] hematuria; Translations: [Gross hematuria] Onset: 06-14-2013 Episodic Headache; including migraine (10 sources) Headache; Translations: [Headache] Onset: 07-22-2024 09-07-2019 Episodic Hemorrhoids (10 sources) Hemorrhoids; Translations: [Unspecified hemorrhoids] Onset: 07-22-2024 01-22-2019 Episodic Mood disorders (20 sources) Depressive disorder; Translations: [Depression] Onset: 09-04-2006 Resolved: 06-12-2023 08-09-2019 Chronic Mood disorders (16 sources) Mood disorders Onset: 05-31-2023 Resolved: 04-12-2024 08-25-2023 Other aftercare (2 sources) Encounter for therapeutic drug level monitoring; Translations: [Encounter for therapeutic drug level monitoring] Onset: 07-25-2024 Episodic Other aftercare (1 source) intermediate accountant (current) use of insulin; Translations: [Controlled type 2 diabetes mellitus without complication, with long-term current use of insulin (HCC)] Onset: 01-18-2024 Episodic Other and unspecified benign neoplasm (20 sources) Tubular adenoma of colon; Translations: [Benign neoplasm of colon, unspecified] Onset: 11-15-2022 02-23-2023 Episodic Other circulatory disease (13 sources) History of transient ischemic attack; Translations: [Personal history of transient ischemic attack (TIA), and cerebral infarction without residual deficits] Onset: 07-22-2024 07-22-2024 Episodic Other circulatory disease (3 sources) Other specified symptoms and signs involving the circulatory and respiratory systems; Translations: [Other symptoms involving cardiovascular system] Onset: 07-25-2024 07-25-2024 Episodic Other circulatory disease (1 source) Personal history of other diseases of the circulatory system; Translations: [History of carotid artery stenosis] Onset: 06-11-2024 Episodic Other circulatory disease (2 sources) Personal history of transient ischemic attack (TIA), and cerebral infarction without residual deficits; Translations: [Personal history of transient ischemic attack (TIA), and cerebral infarction without residual deficits] Onset: 07-25-2024 Episodic Other female genital disorders (2 sources) Erosion and ectropion of cervix uteri; Translations: [Erosion and ectropion of cervix uteri] Onset: 12-20-2024 Episodic Other gastrointestinal disorders (10 sources) Constipation; Translations: [Constipation, unspecified] Onset: 07-22-2024 01-22-2019 Episodic Other lower respiratory disease (1 source) Hypoxemia; Translations: [Hypoxia] Onset: 02-06-2025 Episodic Other nutritional; endocrine; and metabolic disorders (11 sources) H/O: hypothyroidism; Translations: [Personal history of other endocrine, metabolic, and immunity disorders] Onset: 07-22-2024 07-22-2024 Episodic Other nutritional; endocrine; and metabolic disorders (1 source) Personal history of other endocrine, nutritional and metabolic disease; Translations: [History of diabetes mellitus] Onset: 06-11-2024 Episodic Other screening for suspected conditions (not mental disorders or infectious disease) (20 sources) Patient encounter status; Translations: [Encounter for screening mammogram for malignant neoplasm of breast] Onset: 11-15-2022 Resolved: 09-14-2023 Episodic Otitis media and related conditions (17 sources) Acute mastoiditis; Translations: [Acute mastoiditis without complications, bilateral] Onset: 07-22-2024 Episodic Residual codes; unclassified (20 sources) Past history of procedure; Translations: [Personal history of other medical treatment] Onset: 06-21-2023 12-07-2023 Episodic Residual codes; unclassified (5 sources) H/O: major vascular surgery; Translations: [Other specified postprocedural states] Onset: 07-22-2024 07-22-2024 Episodic Residual codes; unclassified (2 sources) Personal history of other medical treatment; Translations: [History of echocardiogram] Onset: 06-02-2024 Episodic Residual codes; unclassified (1 source) Other specified postprocedural states; Translations: [History of left heart catheterization (LHC)] Onset: 06-11-2024 Episodic Respiratory failure; insufficiency; arrest (adult) (10 sources) Acute respiratory failure; Translations: [Acute respiratory failure with hypoxia] Onset: 07-22-2024 01-22-2019 Episodic Screening and history of mental health and substance abuse codes (3 sources) Ex-smoker; Translations: [Personal history of nicotine dependence] Onset: 06-11-2024 12-07-2023 Episodic Unclassified (4 sources) Patient encounter status 07-11-2024 Unclassified (5 sources) Onset: 07-23-2024 Resolved: 07-25-2024 07-23-2024 Urinary tract infections (20 sources) Acute cystitis; Translations: [Acute cystitis with hematuria] Onset: 06-12-2007 Resolved: 03-22-2012 Episodic Comment on above: on admit Results Test Name Value Interpretation Reference Range Facility [facility] 05-13-2025 [facility] Office Visit (INTMWS ) -- SANDY BHATTI ([id number]) 1965 F Date Time Provider Department 05/13/25 9:00 AM MALDONADO RAZA INTMWS During your visit today, we recorded the following information about you: Temperature Pulse Blood pressure Weight 97.8 degrees 64/minute 130/56 56.5 kg Maldonado Raza MD 05/13/2025 9:51 AM Signed Subjective Sandy Bhatti is a 60 year old female here with spouse She had a 6 minute walk test for pre kidney transplant evaluation at [facility] on 04/17/25. She walked 198 m [...] mouth twice daily as needed for Constipation. NEPHRO-PETEY 0.8 mg tab Take 1 tablet by [...] diagnosis) She will be referred to her (more content not included)... Normal [facility] 04-23-2025 [facility] Telephone (INTMWS) -- SANDY BHATTI ([id number]) 1965 F Date Time Provider Department 04/23/25 MALDONADO RAZA INTWS During your visit today, we recorded the [...] next appt with pcp is 06/10/25. Maldonado Raza MD 04/23/2025 5:20 PM Signed Appointment needed [...] twice daily as needed for Constipation. - NEPHRO-PETEY 0.8 mg tab Take 1 tablet by [...] of stress test [Z92.89] 06/21/2023 Encounter for scr (more content not included)... 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 Pendleton, nephrology. Congestive heart failure ([facility]) Constipation Depression 09/04/2006 Encounter for screening for stenosis of carotid artery 03/27/2023 Less then 50% calcification bilaterally. ESRD on dialysis ([facility]) 05/16/2019 GERD (gastroesophageal reflux disease) Hemorrhoids History [...] colic 06/12/2007 Secondary hyperparathyroidism of renal origin ([facility]) 06/20/2023 Steal syndrome dialysis vascular access 05/17/2019 [...] COLONOSCOPY SCREENING 11/15/2022 COLOSTOMY/SKIN LEVEL CECOSTOMY 2007 [id number], reversed 2007 CREATION OF AVF, PERCUTANEOUS USING [...] lung cancer Coronary Artery Disease Brother dec. [place] 57 y.o. (more content not included)... Normal [facility] ECG COMPLETEon 02-20-2025 ECG COMPLETE Ventricular Rate : 6 8 BPM Atrial Rate : 68 BPM P-R Interval : 170 ms QRS Duration : 132 ms Q-T Interval : 462 ms QTC Calculation(Bazett) : 491 ms Calculated P [place] : 42 degrees Calculated R [place] : -50 degrees Calculated T [place] : 106 degrees Normal sinus rhythm Right bundle branch block Left anterior fascicular block Bifascicular block Questionable change in initial forces of Lateral leads Confirmed by DAVE PICKETT DO ([id number]) on 02/23/2025 5:06:36 PM NAME : SANDY BHATTI PID : [id number] : 1965 Gender : Female Race : ORD : [id number] Procedure Date : Feb 20 2025 09:00:55 Edit Date : Feb 23 2025 17:06:38 Diagnosis: Normal sinus rhythm Right bundle branch block Left anterior fascicular block Bifascicular block Questionable change in initial forces of Lateral leads Confirmed by DAVE PICKETT DO ([id number]) on 02/23/2025 5:06:36 PM Test Reason : HCS Location : 2 : [place] Overread By : DAVE PICKETT DO Edited By : DAVE PICKETT DO Referred By : , Acquired by : [id number], [facility] 02-06-2025 [facility] Office Visit (INTMWS ) -- SANDY BHATTI ([id number]) 1965 F Date Time Provider Department 02/06/25 11:40 AM MALDONADO RAZA INTMWS During your visit today, we recorded the following information about you: Temperature Pulse Blood pressure Weight 98.3 degrees 68/minute 124/60 58.9 kg Maldonado Raza MD 02/06/2025 12:48 PM Signed This note was created using Tripvistoriter. Subjective Patient presents with: Hospital F/U Recording using MakeMeReach software for draft documentation of the visit was discussed with the patient/authorized agricultural sales representative; all questions welcomed and answered. Patient/authorized agricultural sales representative agreed to proceed Sandy Bhatti is a 60 year old female. Pulmonary Edema: - Hospitalized at [facility] last Monday for severe dyspnea; initially [...] the feet. CHF: - Followed by a housing quality standard inspector in [place]; has an upcoming appointment. Review of Systems [...] mouth twice daily as needed for Constipation. NEPHRO-PETEY 0.8 mg tab Take 1 tablet by [...] No murmur heard. No friction rub. No gallop (more content not included)... Normal [facility] Basic Metabolic Profile (BMP )on 02-02-2025 BUN Normal 4-19 [facility] Comment on above: Result Comment: Canc elled via OM: Order cancelled - Patient discharged Performed By: #### L 501.080 #### [facility] [address] [place], [address] BUN/CRE Normal 10- [facility] Comment on above: Result Comment: Canc elled via OM: Order cancelled - Patient discharged Performed By: #### L 501.080 #### [facility] [address] [place], [address] Calcium Normal 7.6-11.0 [facility] Comment on above: Result Comment: Canc elled via OM: Order cancelled - Patient discharged Performed By: #### L 501.080 #### [facility] [address] [place], [address] CL Normal 98-108 [facility] Comment on above: Result Comment: Canc elled via OM: Order cancelled - Patient discharged Performed By: #### L 501.080 #### [facility] [address] [place], [address] CO2 Normal 21.0-32.0 [facility] Comment on above: Result Comment: Canc elled via OM: Order cancelled - Patient discharged Performed By: #### L 501.080 #### [facility] [address] [place], [address] CREAT,SERUM Normal 0.70-1.20 [facility] Comment on above: Result Comment: Canc elled via OM: Order cancelled - Patient discharged Performed By: #### L 501.080 #### [facility] [address] [place], [address] eGFR Normal >60 [facility] Comment on above: Result Comment: Canc elled via OM: Order cancelled - Patient discharged Performed By: #### L 501.080 #### [facility] [address] [place], [address] GAP Normal 5-15 [facility] Comment on above: Result Comment: Canc elled via OM: Order cancelled - Patient discharged Performed By: #### L 501.080 #### [facility] [address] [place], [address] GLU Normal 70-99 [facility] Comment on above: Result Comment: Canc elled via OM: Order cancelled - Patient discharged Performed By: #### L 501.080 #### [facility] [address] [place], [address] Potassium Normal 3.3-5.1 [facility] Comment on above: Result Comment: Canc elled via OM: Order cancelled - Patient discharged Performed By: #### L 501.080 #### [facility] [address] [place], [address] Basic Metabolic Profile (BMP) Normal 133-145 [facility] Comment on above: Result Comment: Canc elled via OM: Order cancelled - Patient discharged Performed By: #### L 501.080 #### [facility] [address] [place], [address] Basic Metabolic Profile (BMP )on 02-01-2025 BUN Normal 4-19 [facility] Comment on above: Result Comment: Canc elled via OM: Order cancelled - Patient discharged Performed By: #### L 501.080 #### [facility] [address] [place], [address] BUN/CRE Normal 10-20 [facility] Comment on above: Result Comment: Canc elled via OM: Order cancelled - Patient discharged Performed By: #### L 501.080 #### [facility] [address] [place], [address] Calcium Normal 7.6-11.0 [facility] Comment on above: Result Comment: Canc elled via OM: Order cancelled - Patient discharged Performed By: #### L 501.080 #### [facility] [address] [place], [address] CL Normal 98-108 [facility] Comment on above: Result Comment: Canc elled via OM: Order cancelled - Patient discharged Performed By: #### L 501.080 #### [facility] [address] [place], [address] CO2 Normal 21.0-32.0 [facility] Comment on above: Result Comment: Canc elled via OM: Order cancelled - Patient discharged Performed By: #### L 501.080 #### [facility] [address] [place], [address] CREAT,SERUM Normal 0.70-1.20 [facility] Comment on above: Result Comment: Canc elled via OM: Order cancelled - Patient discharged Performed By: #### L 501.080 #### [facility] [address] [place], [address] eGFR Normal >60 [facility] Comment on above: Result Comment: Canc elled via OM: Order cancelled - Patient discharged Performed By: #### L 501.080 #### [facility] [address] [place], [address] GAP Normal 5-15 [facility] Comment on above: Result Comment: Canc elled via OM: Order cancelled - Patient discharged Performed By: #### L 501.080 #### [facility] [address] [place], [address] GLU Normal 70-99 [facility] Comment on above: Result Comment: Canc elled via OM: Order cancelled - Patient discharged Performed By: #### L 501.080 #### [facility] [address] [place], [address] Potassium Normal 3.3-5.1 [facility] Comment on above: Result Comment: Canc elled via OM: Order cancelled - Patient discharged Performed By: #### L 501.080 #### [facility] [address] [place], [address] Basic Metabolic Profile (BMP) Normal 133-145 [facility] Comment on above: Result Comment: Canc elled via OM: Order cancelled - Patient discharged Performed By: #### L 501.080 #### [facility] [address] [place], [address] Basic Metabolic Profile (BMP )on 01-31-2025 BUN Normal 4-19 [facility] Comment on above: Result Comment: Canc elled via OM: Order cancelled - Patient discharged Performed By: #### L 501.080 #### [facility] [address] [place], [address] BUN/CRE Normal 10-20 [facility] Comment on above: Result Comment: Canc elled via OM: Order cancelled - Patient discharged Performed By: #### L 501.080 #### [facility] [address] [place], [address] Calcium Normal 7.6-11.0 [facility] Comment on above: Result Comment: Canc elled via OM: Order cancelled - Patient discharged Performed By: #### L 501.080 #### [facility] [address] [place], [address] CL Normal 98-108 [facility] Comment on above: Result Comment: Canc elled via OM: Order cancelled - Patient discharged Performed By: #### L 501.080 #### [facility] [address] [place], [address] CO2 Normal 21.0-32.0 [facility] Comment on above: Result Comment: Canc elled via OM: Order cancelled - Patient discharged Performed By: #### L 501.080 #### [facility] [address] [place], [address] CREAT,SERUM Normal 0.70-1.20 [facility] Comment on above: Result Comment: Canc elled via OM: Order cancelled - Patient discharged Performed By: #### L 501.080 #### [facility] [address] [place], [address] eGFR Normal >60 [facility] Comment on above: Result Comment: Canc elled via OM: Order cancelled - Patient discharged Performed By: #### L 501.080 #### [facility] [address] [place], [address] GAP Normal 5-15 [facility] Comment on above: Result Comment: Canc elled via OM: Order cancelled - Patient discharged Performed By: #### L 501.080 #### [facility] [address] [place], [address] GLU Normal 70-99 [facility] Comment on above: Result Comment: Canc elled via OM: Order cancelled - Patient discharged Performed By: #### L 501.080 #### [facility] [address] [place], [address] Potassium Normal 3.3-5.1 [facility] Comment on above: Result Comment: Canc elled via OM: Order cancelled - Patient discharged Performed By: #### L 501.080 #### [facility] [address] [place], [address] Basic Metabolic Profile (BMP) Normal 133-145 [facility] Comment on above: Result Comment: Canc elled via OM: Order cancelled - Patient discharged Performed By: #### L 501.080 #### [facility] [address] [place], [address] CBC W/Diff, Automatedon 05-3 0-2024 Absolute Neut Normal 2.0-7.7 [facility] Comment on above: Result Comment: Canc elled via OM: Order cancelled - Patient discharged Performed By: #### L 501.080 #### [facility] [address] [place], [address] HCT Normal 37-47 [facility] Comment on above: Result Comment: Canc elled via OM: Order cancelled - Patient discharged Performed By: #### L 501.080 #### [facility] [address] [place], [address] HGB Normal 12.0-15.0 [facility] Comment on above: Result Comment: Canc elled via OM: Order cancelled - Patient discharged Performed By: #### L 501.080 #### [facility] [address] [place], [address] MCH Normal 27.0-32.0 [facility] Comment on above: Result Comment: Canc elled via OM: Order cancelled - Patient discharged Performed By: #### L 501.080 #### [facility] [address] [place], [address] MCHC Normal 32-36 [facility] Comment on above: Result Comment: Canc elled via OM: Order cancelled - Patient discharged Performed By: #### L 501.080 #### [facility] [address] [place], [address] MCV Normal 81-99 [facility] Comment on above: Result Comment: Canc elled via OM: Order cancelled - Patient discharged Performed By: #### L 501.080 #### [facility] [address] [place], [address] NEUT% Normal 47-70 [facility] Comment on above: Result Comment: Canc elled via OM: Order cancelled - Patient discharged Performed By: #### L 501.080 #### [facility] [address] [place], [address] PLT Normal 150-450 [facility] Comment on above: Result Comment: Canc elled via OM: Order cancelled - Patient discharged Performed By: #### L 501.080 #### [facility] [address] [place], [address] RBC Normal 4.2-5.4 [facility] Comment on above: Result Comment: Canc elled via OM: Order cancelled - Patient discharged Performed By: #### L 501.080 #### [facility] [address] [place], [address] RDW CV Normal 11.6-14.6 [facility] Comment on above: Result Comment: Canc elled via OM: Order cancelled - Patient discharged Performed By: #### L 501.080 #### [facility] [address] [place], [address] RDW SD Normal 35.1-43.9 [facility] Comment on above: Result Comment: Canc elled via OM: Order cancelled - Patient discharged Performed By: #### L 501.080 #### [facility] [address] [place], [address] WBC Normal 4.4-11.0 [facility] Comment on above: Result Comment: Canc elled via OM: Order cancelled - Patient discharged Performed By: #### L 501.080 #### [facility] [address] [place], [address] Absolute lymphocyte countOrd ered By: Kade Ricketts on 01-30-2025 Lymphocytes Auto (Unsp spec) [#/Vol] 1.29 10*3/uL 0.83-4.51 [facility] Absolute neutrophil countOrd ered By: Kade Ricketts on 01-30-2025 Neutrophils (Bld) [#/Vol] 3.5 10*3/uL 2.0-7.7 [facility] Anion gap in Serum or Plasma Ordered By: Kade Ricketts on 01-30-2025 Anion gap [Moles/Vol] 9 mmol/L 5-15 [facility] Automated lymphocyte count a s percentage of total leukocytesOrdered By: Kade Ricketts on 01-30-2025 Lymphocytes/100 WBC Auto (Unsp spec) 24.6 % 19-41 [facility] BUN/creatinine ratioOrdered By: Kade Ricketts on 01-30-2025 Urea nitrogen/Creatinine [Mass ratio] 5.6 mg/mg Low 10-20 [facility] Basic Metabolic Profile (BMP )on 01-30-2025 BUN/CRE 5.6 RATIO Low 10-20 [facility] Comment on above: Performed By: #### L 501.080 #### [facility] [address] [place], [address] Calcium [Mass/Vol] 9.1 mg/dL Normal 7.6-11.0 [facility] Comment on above: Performed By: #### L 501.080 #### [facility] [address] [place], [address] Chloride [Moles/Vol] 99 mmol/L Normal 98-108 [facility] Comment on above: Performed By: #### L 501.080 #### [facility] [address] [place], [address] CO2 [Moles/Vol] 27.9 mmol/L Normal 21.0-32.0 [facility] Comment on above: Performed By: #### L 501.080 #### [facility] [address] [place], [address] Creatinine [Mass/Vol] 4.78 mg/dL High 0.70-1.20 [facility] Comment on above: Performed By: #### L 501.080 #### [facility] [address] [place], [address] ECRCL 10.67 ml/min Low 50-250 [facility] Comment on above: Performed By: #### L 501.080 #### [facility] [address] [place], [address] GAP 9 Normal 5-15 [facility] Comment on above: Performed By: #### L 501.080 #### [facility] [address] [place], [address] GFR/1.73 sq M.predicted among non-blacks MDRD (S/P/Bld) [Vol rate/Area] 10 mL/min/{1.73_m2} Low >60 [facility] Comment on above: Result Comment: mL/m in/1.73m2 CKD-EPI Creatinine Equation (2020) Performed By: #### L 501.080 #### [facility] [address] [place], [address] Glucose [Mass/Vol] 186 mg/dL High 70-99 [facility] Comment on above: Performed By: #### L 501.080 #### [facility] [address] [place], [address] Potassium [Moles/Vol] 4.9 mmol/L Normal 3.3-5.1 [facility] Comment on above: Performed By: #### L 501.080 #### [facility] [address] [place], [address] Sodium [Moles/Vol] 135 mmol/L Normal 133-145 [facility] Comment on above: Performed By: #### L 501.080 #### [facility] [address] [place], [address] Urea nitrogen [Mass/Vol] 27 mg/dL High 4-19 [facility] Comment on above: Performed By: #### L 501.080 #### [facility] [address] [place], [address] Basophil percentageOrdered B y: Kade Marquezharish on 01-30-2025 Basophils/100 WBC (Bld) 1.3 % High 0-1 [facility] Bedside Glucoseon 01-30-2025 FINGERSTICK GLU 180 mg/dL High 74-106 [facility] Comment on above: Result Comment: RAJI JUARES OF PATIENT CARE PER NURSING PROTOCOL Performed By: #### L 501.080 #### [facility] [address] [place], [address] FINGERSTICK GLU 179 mg/dL High 74-106 [facility] Comment on above: Result Comment: RAJI GEMENT OF PATIENT CARE PER NURSING PROTOCOL Performed By: #### L 501.080 #### [facility] [address] [place], [address] FINGERSTICK GLU 156 mg/dL High 74-106 [facility] Comment on above: Result Comment: RAJI GEMENT OF PATIENT CARE PER NURSING PROTOCOL Performed By: #### L 501.080 #### [facility] [address] [place], [address] CBC W/Diff, Automatedon 05-2 Absolute Lymph 1.29 X10 3/uL Normal 0.83-4.51 [facility] Comment on above: Performed By: #### L 501.080 #### [facility] [address] [place], [address] Absolute Neut 3.5 X10 3/uL Normal 2.0-7.7 [facility] Comment on above: Performed By: #### L 501.080 #### [facility] [address] [place], [address] Basophils/100 WBC (Bld) 1.3 % High 0-1 [facility] Comment on above: Performed By: #### L 501.080 #### [facility] [address] [place], [address] Eosinophils/100 WBC (Bld) 1.0 % Normal 0-5 [facility] Comment on above: Performed By: #### L 501.080 #### [facility] [address] [place], [address] Erythrocyte distribution width (RBC) [Ratio] 13.7 % Normal 11.6-14.6 [facility] Comment on above: Performed By: #### L 501.080 #### [facility] [address] [place], [address] Hematocrit (Bld) [Volume fraction] 25.5 % Low 37-47 [facility] Comment on above: Performed By: #### L 501.080 #### [facility] [address] [place], [address] Hemoglobin (Bld) [Mass/Vol] 8.3 g/dL Low 12.0-15.0 [facility] Comment on above: Performed By: #### L 501.080 #### [facility] [address] [place], [address] IG% 0.400 Normal 0.0-0.9 [facility] Comment on above: Result Comment: IG% - Immature Granulocytes (promyelocytes, myelocytes and metamyelocytes) > 1% indicates that a LEFT SHIFT is Present. Performed By: #### L 501.080 #### [facility] [address] [place], [address] Lymphocytes/100 WBC (Bld) 24.6 % Normal 19-41 [facility] Comment on above: Performed By: #### L 501.080 #### [facility] [address] [place], [address] MCH (RBC) [Entitic mass] 30.5 pg Normal 27.0-32.0 [facility] Comment on above: Performed By: #### L 501.080 #### [facility] [address] [place], [address] MCHC (RBC) [Mass/Vol] 32.5 g/dL Normal 32-36 [facility] Comment on above: Performed By: #### L 501.080 #### [facility] [address] [place], [address] MCV (RBC) [Entitic vol] 93.8 fL Normal 81-99 [facility] Comment on above: Performed By: #### L 501.080 #### [facility] [address] [place], [address] Monocytes/100 WBC (Bld) 6.3 % Normal 0-10 [facility] Comment on above: Performed By: #### L 501.080 #### [facility] [address] [place], [address] Neutrophils/100 WBC (Bld) 66.4 % Normal 47-70 [facility] Comment on above: Performed By: #### L 501.080 #### [facility] [address] [place], [address] Nucleated RBC (Bld) [#/Vol] 0 10*3/uL Normal 0-5 [facility] Comment on above: Performed By: #### L 501.080 #### [facility] [address] [place], [address] Platelet mean volume (Bld) [Entitic vol] 9.6 fL Normal 6.2-12.0 [facility] Comment on above: Performed By: #### L 501.080 #### [facility] [address] [place], [address] Platelets (Bld) [#/Vol] 166 10*3/uL Normal 150-450 [facility] Comment on above: Performed By: #### L 501.080 #### [facility] [address] [place], [address] RBC (Bld) [#/Vol] 2.72 10*6/uL Low 4.2-5.4 [facility] Comment on above: Performed By: #### L 501.080 #### [facility] [address] [place], [address] RDW SD 46.0 fl High 35.1-43.9 [facility] Comment on above: Performed By: #### L 501.080 #### [facility] [address] [place], [address] WBC (Bld) [#/Vol] 5.2 10*3/uL Normal 4.4-11.0 [facility] Comment on above: Performed By: #### L 501.080 #### [facility] [address] [place], [address] Carbon dioxide, total [Moles /volume] in Central venous bloodOrdered By: Kade Ricketts on 01-30-2025 CO2 [Moles/Vol] 27.9 mmol/L 21.0-32.0 [facility] Chloride assayOrdered By: Regis Ricketts on 01-30-2025 Chloride [Moles/Vol] 99 mmol/L 98-108 [facility] Eosinophil percentageOrdered By: Kade Ricketts on 01-30-2025 Eosinophils/100 WBC (Bld) 1.0 % 0-5 [facility] Erythrocyte distribution wid th ratioOrdered By: Kade Ricketts on 01-30-2025 Erythrocyte distribution width (RBC) [Ratio] 13.7 % 11.6-14.6 [facility] Erythrocyte distribution wid th standard deviationOrdered By: Kade Ricketts on 01-30-2025 Erythrocyte distribution width (RBC) [Ratio] 46.0 fl High 35.1-43.9 [facility] Glomerular filtration rate ( GFR) estimation/1.73 sq m using serum, plasma, or whole bOrdered By: Kade Ricketts on 01-30-2025 GFR/1.73 sq M.predicted among non-blacks MDRD (S/P/Bld) [Vol rate/Area] 10 mL/min/{1.73_m2} Low >60 [facility] Comment on above: mL/min/1.73m2 CKD-EP I Creatinine Equation (2020) [facility] de[facility]dered By: Kade Ricketts on 01-30-2025 Glucose [Mass/Vol] 180 mg/dL High 74-106 [facility] Comment on above: MANAGEMENT OF PATIEN T CARE PER NURSING PROTOCOL Hematocrit Auto (Bld) [Volum e fraction]Ordered By: Kade Ricketts on 01-30-2025 Hematocrit (Bld) [Volume fraction] 25.5 % Low 37-47 [facility] Hemoglobin measurementOrdere d By: Kade Ricketts on 01-30-2025 Hemoglobin (Bld) [Mass/Vol] 8.3 g/dL Low 12.0-15.0 [facility] Immature granulocytes/100 WB C Auto (Bld)Ordered By: Kade Ricketts on 01-30-2025 Immature granulocytes/100 WBC (Bld) 0.400 % 0.0-0.9 [facility] Comment on above: IG% - Immature Granu locytes (promyelocytes, myelocytes and metamyelocytes) > 1% indicates that a LEFT SHIFT is Present. MCV (mean corpuscular volume ) determinationOrdered By: Kade Ricketts on 01-30-2025 MCV (RBC) [Entitic vol] 93.8 fL 81-99 [facility] Mean corpuscular hemoglobin (MCH) determinationOrdered By: Kade Ricketts on 01-30-2025 MCH (RBC) [Entitic mass] 30.5 pg 27.0-32.0 [facility] Mean corpuscular hemoglobin concentration (MCHC) determinationOrdered By: Kade Ricketts on 01-30-2025 MCHC (RBC) [Mass/Vol] 32.5 g/dL 32-36 [facility] Mean platelet volume determi nationOrdered By: Kade Ricketts on 01-30-2025 Platelet mean volume (Bld) [Entitic vol] 9.6 fL 6.2-12.0 [facility] Monocyte percentageOrdered B y: Kaed Ricketts on 01-30-2025 Monocytes/100 WBC (Bld) 6.3 % 0-10 [facility] Neutrophil percentageOrdered By: Kade Ricketts on 01-30-2025 Neutrophils/100 WBC (Bld) 66.4 % 47-70 [facility] Nucleated red blood cell per centageOrdered By: Kade Ricketts on 01-30-2025 Nucleated RBC/100 WBC (Bld) [Ratio] 0 % 0-5 [facility] Platelet countOrdered By: Regis Ricketts on 01-30-2025 Platelets (Bld) [#/Vol] 166 10*3/uL 150-450 [facility] Potassium measurement (mass/ volume)Ordered By: Kade Ricketts on 01-30-2025 Potassium (Unsp spec) [Mass/Vol] 4.9 mmol/L 3.3-5.1 [facility] RBC Auto (Bld) [#/Vol]Ordere d By: Kade Ricketts on 01-30-2025 RBC (Bld) [#/Vol] 2.72 10*6/uL Low 4.2-5.4 [facility] Serum creatinine measurement (mass/volume)Ordered By: Kade Ricketts on 01-30-2025 Creatinine [Mass/Vol] 4.78 mg/dL High 0.70-1.20 [facility] Serum glucose measurement (m ass/volume)Ordered By: Kade Ricketts on 01-30-2025 Glucose [Mass/Vol] 186 mg/dL High 70-99 [facility] Serum or plasma calcium vignesh urement (mass/volume)Ordered By: Kade Ricketts on 01-30-2025 Calcium [Mass/Vol] 9.1 mg/dL 7.6-11.0 [facility] Serum or plasma urea nitroge n measurement (mass/volume)Ordered By: Kade Ricketts on 01-30-2025 Urea nitrogen [Mass/Vol] 27 mg/dL High 4-19 [facility] Sodium levelOrdered By: Raheem Ricketts on 01-30-2025 Sodium [Moles/Vol] 135 mmol/L 133-145 [facility] White blood cell (WBC) count Ordered By: Kade Ricketts on 01-30-2025 WBC (Bld) [#/Vol] 5.2 10*3/uL 4.4-11.0 [facility] Basic Metabolic Profile (BMP )on 01-29-2025 BUN/CRE 5.7 RATIO Low 10-20 [facility] Comment on above: Performed By: #### L 501.5200, L501.9985, L100.0100, L501.2300, L500.2500 #### [facility] [address] [place], [place], [id number] Calcium [Mass/Vol] 9.0 mg/dL Normal 7.6-11.0 [facility] Comment on above: Performed By: #### L 501.5200, L501.9985, L100.0100, L501.2300, L500.2500 #### [facility] [address] [place], [address] Chloride [Moles/Vol] 100 mmol/L Normal 98-108 [facility] Comment on above: Performed By: #### L 501.5200, L501.9985, L100.0100, L501.2300, L500.2500 #### [facility] [address] [place], [address] CO2 [Moles/Vol] 26.8 mmol/L Normal 21.0-32.0 [facility] Comment on above: Performed By: #### L 501.5200, L501.9985, L100.0100, L501.2300, L500.2500 #### [facility] [address] [place], [address] Creatinine [Mass/Vol] 5.62 mg/dL High 0.70-1.20 [facility] Comment on above: Performed By: #### L 501.5200, L501.9985, L100.0100, L501.2300, L500.2500 #### [facility] [address] [place], [address] ECRCL 9.08 ml/min Invalid Interpretation Code 50-250 [facility] Comment on above: Performed By: #### L 501.5200, L501.9985, L100.0100, L501.2300, L500.2500 #### [facility] [address] [place], [address] GAP 10 Normal 5-15 [facility] Comment on above: Performed By: #### L 501.5200, L501.9985, L100.0100, L501.2300, L500.2500 #### [facility] [address] [place], [address] GFR/1.73 sq M.predicted among non-blacks MDRD (S/P/Bld) [Vol rate/Area] 8 mL/min/{1.73_m2} Low >60 [facility] Comment on above: Result Comment: mL/m in/1.73m2 CKD-EPI Creatinine Equation (2020) Performed By: #### L 501.5200, L501.9985, L100.0100, L501.2300, L500.2500 #### [facility] [address] [place], [address] Glucose [Mass/Vol] 163 mg/dL High 70-99 [facility] Comment on above: Performed By: #### L 501.5200, L501.9985, L100.0100, L501.2300, L500.2500 #### [facility] [address] [place], [address] Potassium [Moles/Vol] 5.3 mmol/L High 3.3-5.1 [facility] Comment on above: Performed By: #### L 501.5200, L501.9985, L100.0100, L501.2300, L500.2500 #### [facility] [address] [place], [address] Sodium [Moles/Vol] 137 mmol/L Normal 133-145 [facility] Comment on above: Performed By: #### L 501.5200, L501.9985, L100.0100, L501.2300, L500.2500 #### [facility] [address] [place], [address] Urea nitrogen [Mass/Vol] 32 mg/dL High 4-19 [facility] Comment on above: Performed By: #### L 501.5200, L501.9985, L100.0100, L501.2300, L500.2500 #### [facility] [address] [place], [address] Bedside Glucoseon 01-29-2025 FINGERSTICK GLU 77 mg/dL Normal 74-106 [facility] Comment on above: Result Comment: RAJI GEMENT OF PATIENT CARE PER NURSING PROTOCOL Performed By: #### L 501.080 #### [facility] [address] [place], [address] FINGERSTICK GLU 116 mg/dL High 74-106 [facility] Comment on above: Result Comment: RAJI GEMENT OF PATIENT CARE PER NURSING PROTOCOL Performed By: #### L 501.080 #### [facility] [address] [place], [address] FINGERSTICK GLU 143 mg/dL High 74-106 [facility] Comment on above: Result Comment: RAJI GEMENT OF PATIENT CARE PER NURSING PROTOCOL Performed By: #### L 501.080 #### [facility] [address] [place], [address] FINGERSTICK GLU 162 mg/dL High 74-106 [facility] Comment on above: Result Comment: RAJI GEMENT OF PATIENT CARE PER NURSING PROTOCOL Performed By: #### L 500.2500, L100.0100 #### [facility] [address] [place], [address] CBC W/Diff, Automatedon 01-03 Absolute Lymph 1.63 X10 3/uL Normal 0.83-4.51 [facility] Comment on above: Performed By: #### L 501.080 #### [facility] [address] [place], [address] Absolute Neut 3.6 X10 3/uL Normal 2.0-7.7 [facility] Comment on above: Performed By: #### L 501.080 #### [facility] [address] [place], [address] Basophils/100 WBC (Bld) 1.4 % High 0-1 [facility] Comment on above: Performed By: #### L 501.080 #### [facility] [address] [place], [address] Eosinophils/100 WBC (Bld) 1.0 % Normal 0-5 [facility] Comment on above: Performed By: #### L 501.080 #### [facility] [address] [place], [address] Erythrocyte distribution width (RBC) [Ratio] 13.7 % Normal 11.6-14.6 [facility] Comment on above: Performed By: #### L 501.080 #### [facility] [address] [place], [address] Hematocrit (Bld) [Volume fraction] 29.5 % Low 37-47 [facility] Comment on above: Performed By: #### L 501.080 #### [facility] [address] [place], [address] Hemoglobin (Bld) [Mass/Vol] 9.2 g/dL Low 12.0-15.0 [facility] Comment on above: Performed By: #### L 501.080 #### [facility] [address] [place], [address] IG% 0.700 Normal 0.0-0.9 [facility] Comment on above: Result Comment: IG% - Immature Granulocytes (promyelocytes, myelocytes and metamyelocytes) > 1% indicates that a LEFT SHIFT is Present. Performed By: #### L 501.080 #### [facility] [address] [place], [address] Lymphocytes/100 WBC (Bld) 27.9 % Normal 19-41 [facility] Comment on above: Performed By: #### L 501.080 #### [facility] [address] [place], [address] MCH (RBC) [Entitic mass] 30.1 pg Normal 27.0-32.0 [facility] Comment on above: Performed By: #### L 501.080 #### [facility] [address] [place], [address] MCHC (RBC) [Mass/Vol] 31.2 g/dL Low 32-36 [facility] Comment on above: Performed By: #### L 501.080 #### [facility] [address] [place], [address] MCV (RBC) [Entitic vol] 96.4 fL Normal 81-99 [facility] Comment on above: Performed By: #### L 501.080 #### [facility] [address] [place], [address] Monocytes/100 WBC (Bld) 7.4 % Normal 0-10 [facility] Comment on above: Performed By: #### L 501.080 #### [facility] [address] [place], [address] Neutrophils/100 WBC (Bld) 61.6 % Normal 47-70 [facility] Comment on above: Performed By: #### L 501.080 #### [facility] [address] [place], [address] Nucleated RBC (Bld) [#/Vol] 0 10*3/uL Normal 0-5 [facility] Comment on above: Performed By: #### L 501.080 #### [facility] [address] [place], [address] Platelet mean volume (Bld) [Entitic vol] 10.1 fL Normal 6.2-12.0 [facility] Comment on above: Performed By: #### L 501.080 #### [facility] [address] [place], [address] Platelets (Bld) [#/Vol] 165 10*3/uL Normal 150-450 [facility] Comment on above: Performed By: #### L 501.080 #### [facility] [address] [place], [address] RBC (Bld) [#/Vol] 3.06 10*6/uL Low 4.2-5.4 [facility] Comment on above: Performed By: #### L 501.080 #### [facility] [address] [place], [address] RDW SD 47.8 fl High 35.1-43.9 [facility] Comment on above: Performed By: #### L 501.080 #### [facility] [address] [place], [address] WBC (Bld) [#/Vol] 5.9 10*3/uL Normal 4.4-11.0 [facility] Comment on above: Performed By: #### L 501.080 #### [facility] [address] [place], [address] Absolute Neut Normal 2.0-7.7 [facility] Comment on above: Result Comment: This specimen has been REJECTED due to Laboratory criteria: Quanity Not Sufficient. LCOLLINS has been notified of need of recollection. 01/29/2504 Attila Darlington Performed By: #### L 501.5200, L501.9985, L100.0100, L501.2300, L500.2500 #### [facility] [address] [place], [address] HCT Normal 37-47 [facility] Comment on above: Result Comment: This specimen has been REJECTED due to Laboratory criteria: Quanity Not Sufficient. LCOLLINS has been notified of need of recollection. 01/29/2504 Attila Chelsey Performed By: #### L 501.5200, L501.9985, L100.0100, L501.2300, L500.2500 #### [facility] [address] [place], [address] HGB Normal 12.0-15.0 [facility] Comment on above: Result Comment: This specimen has been REJECTED due to Laboratory criteria: Quanity Not Sufficient. LCOLLINS has been notified of need of recollection. 01/29/2504 Attila Darlington Performed By: #### L 501.5200, L501.9985, L100.0100, L501.2300, L500.2500 #### [facility] [address] [place], [address] MCH Normal 27.0-32.0 [facility] Comment on above: Result Comment: This specimen has been REJECTED due to Laboratory criteria: Quanity Not Sufficient. LCOLLINS has been notified of need of recollection. 01/29/25 Attila Chelsey Performed By: #### L 501.5200, L501.9985, L100.0100, L501.2300, L500.2500 #### [facility] [address] [place], [address] MCHC Normal 32-36 [facility] Comment on above: Result Comment: This specimen has been REJECTED due to Laboratory criteria: Quanity Not Sufficient. LCOLLINS has been notified of need of recollection. 01/29/2504 Attila Chelsey Performed By: #### L 501.5200, L501.9985, L100.0100, L501.2300, L500.2500 #### [facility] [address] [place], [address] MCV Normal 81-99 [facility] Comment on above: Result Comment: This specimen has been REJECTED due to Laboratory criteria: Quanity Not Sufficient. LCOLLINS has been notified of need of recollection. 01/29/2504 Attila Chelsey Performed By: #### L 501.5200, L501.9985, L100.0100, L501.2300, L500.2500 #### [facility] [address] [place], [address] NEUT% Normal 47-70 [facility] Comment on above: Result Comment: This specimen has been REJECTED due to Laboratory criteria: Quanity Not Sufficient. LCOLLINS has been notified of need of recollection. 01/29/25603 Attila Chelsey Performed By: #### L 501.5200, L501.9985, L100.0100, L501.2300, L500.2500 #### [facility] [address] [place], [address] PLT Normal 150-450 [facility] Comment on above: Result Comment: This specimen has been REJECTED due to Laboratory criteria: Quanity Not Sufficient. [employer] has been notified of need of recollection. 01/29/25603 Attila Darlington Performed By: #### L 501.5200, L501.9985, L100.0100, L501.2300, L500.2500 #### [facility] [address] [place], [address] RBC Normal 4.2-5.4 [facility] Comment on above: Result Comment: This specimen has been REJECTED due to Laboratory criteria: Quanity Not Sufficient. [employer] has been notified of need of recollection. 01/29/25603 Attila Chelsey Performed By: #### L 501.5200, L501.9985, L100.0100, L501.2300, L500.2500 #### [facility] [address] [place], [address] RDW CV Normal 11.6-14.6 [facility] Comment on above: Result Comment: This specimen has been REJECTED due to Laboratory criteria: Quanity Not Sufficient. [employer] has been notified of need of recollection. 01/29/25603 Attila Chelsey Performed By: #### L 501.5200, L501.9985, L100.0100, L501.2300, L500.2500 #### [facility] [address] [place], [address] RDW SD Normal 35.1-43.9 [facility] Comment on above: Result Comment: This specimen has been REJECTED due to Laboratory criteria: Quanity Not Sufficient. ANGELA has been notified of need of recollection. 01/29/25 0604 Attila Chelsey Performed By: #### L 501.5200, L501.9985, L100.0100, L501.2300, L500.2500 #### [facility] [address] [place], [address] WBC Normal 4.4-11.0 [facility] Comment on above: Result Comment: This specimen has been REJECTED due to Laboratory criteria: Quanity Not Sufficient. ANGELA has been notified of need of recollection. 01/29/2504 Attila Chelsey Performed By: #### L 501.5200, L501.9985, L100.0100, L501.2300, L500.2500 #### [facility] [address] [place], [address] Hemoglobin A1con 01-29-2025 HbA1c (Bld) [Mass fraction] 7.4 % High <=5.6 [facility] Comment on above: Result Comment: Norm al < 5.7 % Prediabetic 5.7 - 6.4 % Diabetic >or= 6.5 % Please note range changes. Performed By: #### L 501.080 #### [facility] [address] [place], [address] Magnesiumon 01-29-2025 Magnesium [Mass/Vol] 2.7 mg/dL High 1.5-2.2 [facility] Comment on above: Performed By: #### L 501.5200, L501.9985, L100.0100, L501.2300, L500.2500 #### [facility] [address] [place], [address] Magnesium measurement (mass/ volume)Ordered By: Kade Ricketts on 01-29-2025 Magnesium (Unsp spec) [Mass/Vol] 2.7 mg/dL High 1.5-2.2 [facility] Phosphoruson 01-29-2025 Phosphate [Mass/Vol] 2.9 mg/dL Normal 2.7-4.5 [facility] Comment on above: Performed By: #### L 501.5200, L501.9985, L100.0100, L501.2300, L500.2500 #### [facility] [address] [place], [place], [id number] Absolute lymphocyte countOrd ered By: [facility] on 01-28-2025 Lymphocytes Auto (Unsp spec) [#/Vol] 1.29 10*3/uL 0.83-4.51 [facility] Absolute neutrophil countOrd ered By: [facility] on 01-28-2025 Neutrophils (Bld) [#/Vol] 5.8 10*3/uL 2.0-7.7 [facility] Anion gap in Serum or Plasma Ordered By: [facility] on 01-28-2025 Anion gap [Moles/Vol] 13 mmol/L 5-15 [facility] Automated lymphocyte count a s percentage of total leukocytesOrdered By: [facility] HospitalwilsonVinicius on 01-28-2025 Lymphocytes/100 WBC Auto (Unsp spec) 16.7 % Low 19-41 [facility] BUN/creatinine ratioOrdered By: Dave ThorntonVinicius on 01-28-2025 Urea nitrogen/Creatinine [Mass ratio] 4.3 mg/mg Low 10-20 [facility] Basic Metabolic Profile (BMP )on 01-28-2025 BUN/CRE 4.3 RATIO Low 10-20 [facility] Comment on above: Performed By: #### L 500.2500, L100.0100 #### [facility] [address] [place], [address] Calcium [Mass/Vol] 9.9 mg/dL Normal 7.6-11.0 [facility] Comment on above: Performed By: #### L 500.2500, L100.0100 #### [facility] [address] [place], [address] Chloride [Moles/Vol] 99 mmol/L Normal 98-108 [facility] Comment on above: Performed By: #### L 500.2500, L100.0100 #### [facility] [address] [place], [address] CO2 [Moles/Vol] 29.0 mmol/L Normal 21.0-32.0 [facility] Comment on above: Performed By: #### L 500.2500, L100.0100 #### [facility] [address] [place], [address] Creatinine [Mass/Vol] 4.48 mg/dL High 0.70-1.20 [facility] Comment on above: Performed By: #### L 500.2500, L100.0100 #### [facility] [address] [place], [address] ECRCL 11.98 ml/min Low 50-250 [facility] Comment on above: Performed By: #### L 500.2500, L100.0100 #### [facility] [address] [place], [address] GAP 13 Normal 5-15 [facility] Comment on above: Performed By: #### L 500.2500, L100.0100 #### [facility] [address] [place], [address] GFR/1.73 sq M.predicted among non-blacks MDRD (S/P/Bld) [Vol rate/Area] 11 mL/min/{1.73_m2} Low >60 [facility] Comment on above: Result Comment: mL/m in/1.73m2 CKD-EPI Creatinine Equation (2020) Performed By: #### L 500.2500, L100.0100 #### [facility] [address] [place], [address] Glucose [Mass/Vol] 227 mg/dL High 70-99 [facility] Comment on above: Performed By: #### L 500.2500, L100.0100 #### [facility] [address] [place], [address] Potassium [Moles/Vol] 4.1 mmol/L Normal 3.3-5.1 [facility] Comment on above: Performed By: #### L 500.2500, L100.0100 #### [facility] [address] [place], [address] Sodium [Moles/Vol] 141 mmol/L Normal 133-145 [facility] Comment on above: Performed By: #### L 500.2500, L100.0100 #### [facility] [address] [place], [address] Urea nitrogen [Mass/Vol] 19 mg/dL Normal 4-19 [facility] Comment on above: Performed By: #### L 500.2500, L100.0100 #### [facility] [address] [place], [address] Basophil percentageOrdered B y: Dave Coronado on 01-28-2025 Basophils/100 WBC (Bld) 1.0 % 0-1 [facility] Bedside Glucoseon 01-28-2025 FINGERSTICK GLU 143 mg/dL High 74-106 [facility] Comment on above: Result Comment: RAJI GEMENT OF PATIENT CARE PER NURSING PROTOCOL Performed By: #### L 501.080 #### [facility] [address] [place], [address] FINGERSTICK GLU 62 mg/dL Low 74-106 [facility] Comment on above: Result Comment: RAJI GEMENT OF PATIENT CARE PER NURSING PROTOCOL Performed By: #### L 500.2500, L100.0100 #### [facility] [address] [facility] [place], [address] FINGERSTICK GLU 108 mg/dL High 74-106 [facility] Comment on above: Result Comment: RAJI GEMENT OF PATIENT CARE PER NURSING PROTOCOL Performed By: #### L 500.2500, L100.0100 #### [facility] [address] [place], [address] FINGERSTICK GLU 207 mg/dL High 74-106 [facility] Comment on above: Result Comment: RAJI GEMENT OF PATIENT CARE PER NURSING PROTOCOL Performed By: #### L 501.080 #### [facility] [address] [place], [address] CBC W/Diff, Automatedon 05-2 Absolute Lymph 1.29 X10 3/uL Normal 0.83-4.51 [facility] Comment on above: Performed By: #### L 500.2500, L100.0100 #### [facility] [address] [place], [address] Absolute Neut 5.8 X10 3/uL Normal 2.0-7.7 [facility] Comment on above: Performed By: #### L 500.2500, L100.0100 #### [facility] [address] [place], [address] Basophils/100 WBC (Bld) 1.0 % Normal 0-1 [facility] Comment on above: Performed By: #### L 500.2500, L100.0100 #### [facility] [address] [place], [address] Eosinophils/100 WBC (Bld) 0.5 % Normal 0-5 [facility] Comment on above: Performed By: #### L 500.2500, L100.0100 #### [facility] [address] [place], [address] Erythrocyte distribution width (RBC) [Ratio] 13.0 % Normal 11.6-14.6 [facility] Comment on above: Performed By: #### L 500.2500, L100.0100 #### [facility] [address] [place], [address] Hematocrit (Bld) [Volume fraction] 29.3 % Low 37-47 [facility] Comment on above: Performed By: #### L 500.2500, L100.0100 #### [facility] [address] [place], [address] Hemoglobin (Bld) [Mass/Vol] 9.7 g/dL Low 12.0-15.0 [facility] Comment on above: Performed By: #### L 500.2500, L100.0100 #### [facility] [address] [place], [address] IG% 0.800 Normal 0.0-0.9 [facility] Comment on above: Result Comment: IG% - Immature Granulocytes (promyelocytes, myelocytes and metamyelocytes) > 1% indicates that a LEFT SHIFT is Present. Performed By: #### L 500.2500, L100.0100 #### [facility] [address] [place], [address] Lymphocytes/100 WBC (Bld) 16.7 % Low 19-41 [facility] Comment on above: Performed By: #### L 500.2500, L100.0100 #### [facility] [address] [place], [address] MCH (RBC) [Entitic mass] 30.2 pg Normal 27.0-32.0 [facility] Comment on above: Performed By: #### L 500.2500, L100.0100 #### [facility] [address] [place], [address] MCHC (RBC) [Mass/Vol] 33.1 g/dL Normal 32-36 [facility] Comment on above: Performed By: #### L 500.2500, L100.0100 #### [facility] [address] [place], [address] MCV (RBC) [Entitic vol] 91.3 fL Normal 81-99 [facility] Comment on above: Performed By: #### L 500.2500, L100.0100 #### [facility] [address] [place], [address] Monocytes/100 WBC (Bld) 5.4 % Normal 0-10 [facility] Comment on above: Performed By: #### L 500.2500, L100.0100 #### [facility] [address] [place], [address] Neutrophils/100 WBC (Bld) 75.6 % High 47-70 [facility] Comment on above: Performed By: #### L 500.2500, L100.0100 #### [facility] [address] [place], [address] Nucleated RBC (Bld) [#/Vol] 0 10*3/uL Normal 0-5 [facility] Comment on above: Performed By: #### L 500.2500, L100.0100 #### [facility] [address] [place], [address] Platelet mean volume (Bld) [Entitic vol] 9.6 fL Normal 6.2-12.0 [facility] Comment on above: Performed By: #### L 500.2500, L100.0100 #### [facility] [address] [place], [address] Platelets (Bld) [#/Vol] 205 10*3/uL Normal 150-450 [facility] Comment on above: Performed By: #### L 500.2500, L100.0100 #### [facility] [address] [place], [address] RBC (Bld) [#/Vol] 3.21 10*6/uL Low 4.2-5.4 [facility] Comment on above: Performed By: #### L 500.2500, L100.0100 #### [facility] [address] [place], [address] RDW SD 42.9 fl Normal 35.1-43.9 [facility] Comment on above: Performed By: #### L 500.2500, L100.0100 #### [facility] [address] [place], [address] WBC (Bld) [#/Vol] 7.7 10*3/uL Normal 4.4-11.0 [facility] Comment on above: Performed By: #### L 500.2500, L100.0100 #### [facility] [address] [facility] [place], [address] Carbon dioxide, total [Moles /volume] in Central venous bloodOrdered By: Dave Coronado on 01-28-2025 CO2 [Moles/Vol] 29.0 mmol/L 21.0-32.0 [facility] Chest PA and Lateralon 01-28 Chest PA and Lateral [facility] Imaging Services [address] [place] [address] Chest PA and Lateral MR#: [id number] Acct: [id number] Name: SANDY BHATTI Rep #: [id number] : 1965 F 60 From: Ravi franco MD PCP: Dr. Maldonado Raza MD Status: PRE ER Study: Chest PA and Lateral Date of Exam: 01/28/25 Exam# [id number] Ordering Dr: Dave Coronado DO PROCEDURE: CHEST PA AND LATERAL 01/28/2025 REASON FOR EXAM: Cough and shortness of breath. TECHNIQUE: Frontal and lateral views of the chest. COMPARISON: None available. FINDINGS: Hardware: EKG electrodes are seen. Heart: Heart size is moderately enlarged. Mediastinum: The mediastinal contour is unremarkable. Lungs: Small bilateral pleural effusions with bibasilar atelectasis and CHF. Bones: Degenerative changes are identified within the thoracic spine. RAD/Chest PA and Lateral IMPRESSION: Cardiomegaly. Bilateral pleural effusions greater greater on the right side with bibasilar dependent atelectasis and CHF. Reading Location: [facility] CC: Dr. Dave Coronado, DO; Dr. Maldonado Raza MD [employer] Repairer: Signed Normal [facility] Chloride assayOrdered By: Deuce Coronado on 01-28-2025 Chloride [Moles/Vol] 99 mmol/L 98-108 [facility] Consultation - Nephrologyon 01-28-2025 Consultation - Nephrology [facility] Medical Records Department [address] [place] [address] Consultation - Nephrology 01/28/25 1419 MR#: [id number] Acct: [id number] Name: SANDY BHATTI Rep #: [id number] : 1965 60 From: Charo Pyle [employer] PCP: Dr. Maldonado Raza MD Status:ADM IN Location: [facility] [id number] Assessment Plan Assessment/Plan (1) ESRD (end stage renal disease) on dialysis: PLAN: Plan We will continue dialysis for the patient, no acute indication for [employer] today, next dialysis tomorrow. Will attempt to remove fluid as patient/blood pressure tolerates. Patient states her EDW is 60 kg. Chest x-ray showed bilateral pleural effusions, may have a lower EDW by time of hospital discharge. 2D echo pending. Will monitor hemoglobin trends, hemoglobin is 9.7. Blood pressure acceptable. Further orders forthcoming as hospitalization evolves, thank you for allowing us to participate in the care of Ms. Bhatti. HPI Consult Data Date of Consult: 01/28/25 HPI Narrative HPI Narrative: SANDY BHATTI, is a 60 F with past medical history significant for ESRD on dialysis at [facility] Monday followed by Dr. Webb who presented to the emergency room with complaints of shortness of breath. Admitted for acute congestive heart failure. Nephrology consulted in view of history of ESRD and for dialysis management. Patient complains of feeling tired today. Patient states she feels she has extra fluid on. [facility] Medical History S/p small bowel obstruction Incarcerated incisional hernia Wears hearing aid in both ears Hypothyroidism Dialysis patient Kidney disease Former smoker Congestive heart failure (CHF) TIA (transient ischemic attack) Problem with dialysis access Hemorrhoids Acid reflux Constipation Anxiety Depression Hypertension Heart disease Diabetes Thyroid disease Home Medications ???Medication ???Instructions ???Recorded ???Last Taken ???Type aspirin 81 mg tablet,delayed 81 mg PO DAILY heart health 01/27/25 History release (Adult Low Dose Aspirin) atorvastatin 40 mg tablet 40 mg PO QHS CHOLESTEROL 08/14/18 01/27/25 History vitamin B complex-vitamin C-folic 1 tab PO DAILY SUPPLEMENT 1 01/27/25 History acid 0.8 mg tablet (Kenneth-Petey) levothyroxine 125 mcg tablet 125 mcg PO DAILY THYROID 05/31/23 01/27/25 History lisinopril 40 mg tablet 40 mg PO DAILY BLOOD PRESSURE 05/0601/27/25 History sucroferric oxyhydroxide 500 mg 500 mg PO TID PHOSPHATE BINDER 01/27/25 History chewable tablet (Velphoro) amlodipine 10 mg tablet 10 mg PO DAILY 01/28/25 01/27/25 H istory clonidine HCl 0.2 mg tablet 0.2 mg PO BID 01/28/25 01/27/25 Hi story insulin glargine 100 unit/mL (3 48 unit subcut QHS 01/28/25 History mL) subcutaneous pen (Lantus Solostar U-100 Insulin) insulin lispro 100 unit/mL 8 unit subcut .COMPLEX 01/28/25 History subcutaneous pen metoprolol tartrate 25 mg tablet 25 mg PO Q12H 01/28/25 01/27/25 Hi story sumatriptan succinate 50 mg tablet 50 mg PO BID PRN migraine Unknown History Allergy/AdvReac Type Severity Reaction Status Date / Time Penicillins Allergy Severe Anaphylaxis Verified 01/28/25 07:51 chlorhexidine Allergy Mild rash Verified 01/28/25 07:51 codeine Allergy Unknown Unknown Verified 01/28/25 07:51 latex Allergy Unknown Unknown Verified 01/28/25 07:51 Family History Brother Kidney disease Mother Cancer lung cancer Father Colon cancer Surgical History S/P laparotomy with lysis of adhesions Hx of arteriovenostomy for renal dialysis Hx of bilateral breast reduction surgery History of partial hysterectomy History of bowel resection Hx of appendectomy Hx of cholecystectomy Social History Smoking Status: Former smoker alcohol intake: never substance use type: does not use caffeine: Yes what type of physical activity do you participate in: none frequency: does not exercise ROS ROS Narrative As in HPI Physical Exam Narrative Alert and oriented x 3, no apparent distress S1, S2, RRR Diminished breath sounds with faint rales. On O2 nasal cannula Abdomen soft, nontender No pitting edema AV fistula right upper arm positive thrill and bruit Lab / Micro Data 01/28/25 08:10 01/28/25 08:10 Labs: Laboratory Results - last 24 hr 01/28/25 08:10: WBC 7.7, RBC 3.21 L, Hgb 9.7 L, Hct 29.3 L, MCV 91.3, MCH 30.2, MCHC 33.1, RDW Std Deviation 42.9, RDW Coeff of Alvina 13.0, Plt Count 205, MPV 9.6, Immature Gran % (Auto) 0.800, Neut % (Auto) 75.6 H, Lymph % (Auto) 16.7 L, Mo (more content not included)... Normal [facility] Echo Complete W/ Contraston 01-28-2025 Echo Complete W/ Contrast [facility] [address] [place] [address] Echo Complete W/ Contrast 01/28/25 1129 MR#: [id number] Acct: [id number] Name: MAGYSANDY MINOR Rep #: [id number] : 1965 60 From: Lidia Garcia MD Attending Dr: Dr. Kade Ricketts MD Status: ADM IN Ordering Dr: Kade Ricketts MD Date: 01/28/25 Location: [facility] Sex: F C Admitted: 01/28/25 Reason For Study Reason For Study: Dyspnea/SOB Procedure This was a 2D Doppler, Color Flow transthoracic echocardiogram. Contrast injection was performed. Exam performed portable in patient room. Left Ventricle Normal left ventricle. The estimated ejection fraction is 55-60 %. Right Ventricle Normal right ventricle. Normal systolic function. Atria Normal left atrium. Normal right atrium. Mitral Valve There is moderate mitral annular calcification. Tricuspid Valve Normal tricuspid valve. Aortic Valve Trisinus/trileaflet aortic valve. Pulmonic Valve The pulmonic valve is not well visualized. Great Vessels The aortic root is not well visualized. Medication Diluted definity 1ml given slow IV push to enhance endocardial definition. MMode/2D Measurements Calculations LVIDd: 5.1 cm IVSd: 1.5 cm Ao root diam: 3.0 cm LVIDs: 3.2 cm LVPWd: 0.96 cm RVDd: 3.1 cm FS: 37.4 % LAV(MOD-bp): 48.5 ml LVAd ap4: 31.3 cm2 SV(MOD-sp4): 56.4 ml LAV(MOD-bp) Indexed: 30.3 ml/m2 LVLd ap4: 8.1 cm SI(MOD-sp4): 35.3 ml/m2 LAV(MOD-sp2): 48.6 ml EDV(MOD-sp4): 96.2 ml LAV(MOD-sp4): 46.1 ml EDV(sp4-el): 103.1 ml LVAs ap4: 18.2 cm2 LVLs ap4: 6.7 cm ESV(MOD-sp4): 39.7 ml ESV(sp4-el): 41.9 ml EF(MOD-sp4): 58.7 % EF(sp4-el): 59.3 % SV(sp4-el): 61.2 ml LA A4 area: 17.4 cm2 LA dimension(2D): 4.0 cm RA A4 area: 13.8 cm2 TAPSE: 1.7 cm Time Measurements MV dec time: 0.22 sec Doppler Measurements Calculations MV E max jan: 103.8 cm/sec Lat Peak E' Jan: 10.2 cm/sec Med Peak E' Jan: 8.2 cm/sec MV A max jan: 109.2 cm/sec E/E' lat: 10.2 E/E' med: 12.7 MV E/A: 0.95 MV V2 max: 144.5 cm/sec MV P1/2t max jna: 144.8 cm/sec Ao V2 max: 154.5 cm/sec MV max P.4 mmHg MV P1/2t: 82.5 msec Ao max P.6 mmHg MV V2 mean: 91.2 cm/sec Ao V2 mean: 119.0 cm/sec MV mean P.9 mmHg MV dec slope: 514.2 cm/sec2 Ao mean P.1 mmHg MV V2 VTI: 34.1 cm MVA(P1/2t): 2.7 cm2 Ao V2 VTI: 35.1 cm AV (velocity ratio): 0.90 LV V1 max: 137.5 cm/sec PA V2 max: 134.3 cm/sec TR max jan: 337.5 cm/sec LV V1 max P.6 mmHg PA V2 mean: 93.3 cm/sec TR max P.5 mmHg LV V1 mean P.7 mmHg LV V1 mean: 103.7 cm/sec LV V1 VTI: 31.5 cm ECHO/Echo Complete W/ Contrast Interpretation Summary The estimated ejection fraction is 55-60 %. Overall normal LV systolic function No significant valvular abnormality noted. No previous echo to compare. Ordering Physician: Kade Ricketts Performed By: Dave Holly RCS 01/28/251850 Date Lidia Garcia MD CC: Dr. Kade Ricketts MD; Dr. Maldonado Raza MD Date Dictated: 01/28/251128 Date Transcribed: 01/28/25 185 [employer] Repairer: Signed Normal [facility] Echocardiogram study reportO rdered By: Lidia Garcia on 01-28-2025 Study report [facility] [address] [place] [address] Echo Complete W/ Contrast 01/28/251128 MR#: [id number] Acct: [id number] Name: SANDY BHATTI Rep #:[id number] : 1965 60 From: Lidia Garcia MD Attending Dr: Dr. Kade Ricketts MD Status: ADM IN Ordering Dr: Kade Ricketts MD Date: Location: [facility] Sex: F C Admitted: 01/28/25 Reason For Study Reason For Study: Dyspnea/SOB Procedure This was a 2D Doppler, Color Flow transthoracic echocardiogram. Contrast injection was performed. Exam performed portable in patient room. Left Ventricle Normal left ventricle. The estimated ejection fraction is 55-60 %. Right Ventricle Normal right ventricle. Normal systolic function. Atria Normal left atrium. Normal right atrium. Mitral Valve There is moderate mitral annular calcification. Tricuspid Valve Normal tricuspid valve. Aortic Valve Trisinus/trileaflet aortic valve. Pulmonic Valve The pulmonic valve is not well visualized. Great Vessels The aortic root is not well visualized. Medication Diluted definity 1ml given slow IV push to enhance endocardial definition. MMode/2D Measurements & Calculations LVIDd: 5.1 cm IVSd: 1.5 cm Ao root diam: 3.0 cm LVIDs: 3.2 cm LVPWd: 0.96 cm RVDd: 3.1 cm FS: 37.4 % LAV(MOD-bp): 48.5 ml LVAd ap4: 31.3 cm2 SV(MOD-sp4): 56.4 ml LAV(MOD-bp) Indexed: 30.3 ml/m2 LVLd ap4: 8.1 cm SI(MOD-sp4): 35.3 ml/m2 LAV(MOD-sp2): 48.6 ml EDV(MOD-sp4): 96.2 ml LAV(MOD-sp4): 46.1 ml EDV(sp4-el): 103.1 ml LVAs ap4: 18.2 cm2 LVLs ap4: 6.7 cm ESV(MOD-sp4): 39.7 ml ESV(sp4-el): 41.9 ml EF(MOD-sp4): 58.7 % EF(sp4-el): 59.3 % __ SV(sp4-el): 61.2 ml LA A4 area: 17.4 cm2 LA dimension(2D): 4.0 cm __ RA A4 area: 13.8 cm2 TAPSE: 1.7 cm Time Measurements MV dec time: 0.22 sec Doppler Measurements & Calculations MV E max jan: 103.8 cm/sec Lat Peak E' Jan: 10.2 cm/sec Med Peak E' Jan: 8.2 cm/sec MV A max jan: 109.2 cm/sec E/E' lat: 10.2 E/E' med: 12.7 MV E/A: 0.95 __ MV V2 max: 144.5 cm/sec MV P1/2t max jan: 144.8 cm/sec Ao V2 max: 154.5 cm/sec MV max P.4 mmHg MV P1/2t: 82.5 msec Ao max P.6 mmHg MV V2 mean: 91.2 cm/sec Ao V2 mean: 119.0 cm/sec MV mean P.9 mmHg MV dec slope: 514.2 cm/sec2 Ao mean P.1 mmHg MV V2 VTI: 34.1 cm MVA(P1/2t): 2.7 cm2 Ao V2 VTI: 35.1 cm AV (velocity ratio): 0.90 __ LV V1 max: 137.5 cm/sec PA V2 max: 134.3 cm/sec TR max jan: 337.5 cm/sec LV V1 max P.6 mmHg PA V2 mean: 93.3 cm/sec TR max P.5 mmHg LV V1 mean P.7 mmHg LV V1 mean: 103.7 cm/sec LV V1 VTI: 31.5 cm ECHO/Echo Complete W/ Contrast Interpretation Summary The estimated ejection fraction is 55-60 %. Overall normal LV systolic function No significant valvular abnormality noted. No previous echo to compare. Ordering Physician: Kade Ricketts Performed By: Dave Holly RCS 01/28/251850 Date _ Lidia Garcia MD CC: Dr. Kade Ricketts MD; Dr. Maldonado Raza MD ~ Date Dictated: 01/28/25 1129 Date Transcribed: 01/28/251850 [employer] Repairer: Signed [facility] Work Phone: Emergency Department Summary on 01-28-2025 Emergency Department Summary [facility] Medical Records Department [address] [place] [address] Emergency Department Summary 01/28/25 MR#: [id number] Acct: [id number] Name: SANDY BHATTI Rep #: [id number] : 1965 60 From: Dave Coronado DO PCP: Dr. Maldonado Raza MD Status:REG ER Location: ED HPI History of Present Illness Chief Complaint: Shortness of Breath Narrative Narrative: Chief complaint and HPI: Cold-like symptoms. 60-year-old female with past medical history of DM2, ESRD on HD Monday/Monday/Monday, HTN, thyroid disease presents for evaluation of cold-like sympto ms. Patient states for the past week she has had rhinorrhea, cough, intermittent shortness of breath. States today she had some nausea and vomiting. Denies any abdominal pain, chest pain, fever, diarrhea. Did receive dialysis yesterday. Review of systems: See HPI Medications: As listed on the chart Allergies: As listed on the chart PFSH: Per chart Vital signs: As listed on the chart. Reviewed. Physical exam: Gen: A O x3, NAD Head: Normocephalic, atraumatic Eyes: No sclera icterus, conjunctiva clear ENT: Moist mucous membranes Neck: Trachea midline, No JVD CV: RRR, no murmurs, no peripheral edema Resp: Lungs CTA BL but diminished in the bases, no w/r/c GI: Abd soft, non-distended, non-tender, no r/r/g Musc: Full ROM, no deformity Skin: Warm, dry Neuro: Alert, oriented, grossly intact, sensation intact Psych: Cooperative, appropriate mood and affect [facility] Medical History S/p small bowel obstruction Incarcerated incisional hernia Wears hearing aid in both ears Hypothyroidism Dialysis patient Kidney disease Former smoker Congestive heart failure (CHF) TIA (transient ischemic attack) Problem with dialysis access Hemorrhoids Acid reflux Constipation Anxiety Depression Hypertension Heart disease Diabetes Thyroid disease Home Medications ???Medication ???Instructions ???Recorded ???Last Taken ???Type aspirin 81 mg tablet,delayed 81 mg PO DAILY heart health 01/27/25 History release (Adult Low Dose Aspirin) atorvastatin 40 mg tablet 40 mg PO QHS CHOLESTEROL 08/14/18 01/27/25 History vitamin B complex-vitamin C-folic 1 tab PO DAILY SUPPLEMENT 1 01/27/25 History acid 0.8 mg tablet (Kenneth-Petey) levothyroxine 125 mcg tablet 125 mcg PO DAILY THYROID 05/31/23 01/27/25 History lisinopril 40 mg tablet 40 mg PO DAILY BLOOD PRESSURE 05/0601/27/25 History sucroferric oxyhydroxide 500 mg 500 mg PO TID PHOSPHATE BINDER 01/27/25 History chewable tablet (Velphoro) amlodipine 10 mg tablet 10 mg PO DAILY 01/28/25 01/27/25 H istory clonidine HCl 0.2 mg tablet 0.2 mg PO BID 01/28/25 01/27/25 Hi story insulin glargine 100 unit/mL (3 48 unit subcut QHS 01/28/25 History mL) subcutaneous pen (Lantus Solostar U-100 Insulin) insulin lispro 100 unit/mL 8 unit subcut .COMPLEX 05/27/25 05 /26/25 History subcutaneous pen metoprolol tartrate 25 mg tablet 25 mg PO Q12H 01/28/25 01/27/25 Hi story sumatriptan succinate 50 mg tablet 50 mg PO BID PRN migraine Unknown History Allergy/AdvReac Type Severity Reaction Status Date / Time Penicillins Allergy Severe Anaphylaxis Verified 01/28/25 07:51 chlorhexidine Allergy Mild rash Verified 01/28/25 07:51 codeine Allergy Unknown Unknown Verified 01/28/25 07:51 latex Allergy Unknown Unknown Verified 01/28/25 07:51 Family History Brother Kidney disease Mother Cancer lung cancer Father Colon cancer Surgical History S/P laparotomy with lysis of adhesions Hx of arteriovenostomy for renal dialysis Hx of bilateral breast reduction surgery History of partial hysterectomy History of bowel resection Hx of appendectomy Hx of cholecystectomy Social History Smoking Status: Former smoker alcohol intake: never substance use type: does not use caffeine: Yes what type of physical activity do you participate in: none frequency: does not exercise EXAM Physical Exam Const Vital Signs: 01/28/25 07:51 01/28/25 07:58 01/28/25 08:15 Temperature 98.2 F Temperature Source Oral Pulse Rate 86 Respiratory Rate 18 Respiratory Effort Normal Respiratory Depth Normal Respiratory Pattern Normal Blood Pressure 166/4 H Blood Pressure Mean 58 Pulse Ox 95 88 Oxygen Delivery Method Room Air Room Air Room Air Oxygen Flow Rate (L/min) 01/28/25 08:18 01/28/25 08:19 Temperature Temperature Source Pulse Rate 81 Respiratory Rate 18 Respiratory Effort (more content not included)... Normal [facility] Eosinophil percentageOrdered By: Dave Coronado on 01-28-2025 Eosinophils/100 WBC (Bld) 0.5 % 0-5 [facility] Erythrocyte distribution wid th ratioOrdered By: Dave Coronado on 01-28-2025 Erythrocyte distribution width (RBC) [Ratio] 13.0 % 11.6-14.6 [facility] Erythrocyte distribution wid th standard deviationOrdered By: Dave Colvin on 01-28-2025 Erythrocyte distribution width (RBC) [Ratio] 42.9 fl 35.1-43.9 [facility] Glomerular filtration rate ( GFR) estimation/1.73 sq m using serum, plasma, or whole bOrdered By: Dave Coronado on 01-28-2025 GFR/1.73 sq M.predicted among non-blacks MDRD (S/P/Bld) [Vol rate/Area] 11 mL/min/{1.73_m2} Low >60 [facility] Comment on above: mL/min/1.73m2 CKD-EP I Creatinine Equation (2020) H AND P Exam - [facility] 01-28-2025 H&P Exam - Hospitalist [facility] Medical Records Department [address] [place] [address] H P Exam - Hospitalist 01/28/25 0925 MR#: [id number] Acct: [id number] Name: SANDY BHATTI Rep #: [id number] : 1965 60 From: Kade Ricketts MD PCP: Dr. 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 Patient in addition did complain of progressive generalized weakness as well as subjective fever and chills. Patient did develop nausea and vomiting on the morning of her presentation necessitating patient presenting to the emergency department. Workup was unremarkable however patient was found to have bilateral pleural effusion on chest x-ray. Rapid COVID and flu assay came back negative. An assessment of acute congestive heart failure in addition to suspected viral syndrome made admitted to a monitored bed for further management [facility] Medical History S/p small bowel obstruction Incarcerated incisional hernia Wears hearing aid in both ears Hypothyroidism Dialysis patient Kidney disease Former smoker Congestive heart failure (CHF) TIA (transient ischemic attack) Problem with dialysis access Hemorrhoids Acid reflux Constipation Anxiety Depression Hypertension Heart disease Diabetes Thyroid disease Home Medications ???Medication ???Instructions ???Recorded ???Last Taken ???Type aspirin 81 mg tablet,delayed 81 mg PO DAILY heart health 01/27/25 History release (Adult Low Dose Aspirin) atorvastatin 40 mg tablet 40 mg PO QHS CHOLESTEROL 08/14/18 01/27/25 History vitamin B complex-vitamin C-folic 1 tab PO DAILY SUPPLEMENT 1 01/27/25 History acid 0.8 mg tablet (Kenneth-Petey) levothyroxine 125 mcg tablet 125 mcg PO DAILY THYROID 05/31/23 01/27/25 History lisinopril 40 mg tablet 40 mg PO DAILY BLOOD PRESSURE 05/0601/27/25 History sucroferric oxyhydroxide 500 mg 500 mg PO TID PHOSPHATE BINDER 01/27/25 History chewable tablet (Velphoro) amlodipine 10 mg tablet 10 mg PO DAILY 01/28/25 01/27/25 H istory clonidine HCl 0.2 mg tablet 0.2 mg PO BID 01/28/25 01/27/25 Hi story insulin glargine 100 unit/mL (3 48 unit subcut QHS 01/28/25 History mL) subcutaneous pen (Lantus Solostar U-100 Insulin) insulin lispro 100 unit/mL 8 unit subcut .COMPLEX 01/28/25 History subcutaneous pen metoprolol tartrate 25 mg tablet 25 mg PO Q12H 01/28/25 01/27/25 Hi story sumatriptan succinate 50 mg tablet 50 mg PO BID PRN migraine Unknown History Allergy/AdvReac Type Severity Reaction Status Date / Time Penicillins Allergy Severe Anaphylaxis Verified 01/28/25 07:51 chlorhexidine Allergy Mild rash Verified 01/28/25 07:51 codeine Allergy Unknown Unknown Verified 01/28/25 07:51 latex Allergy Unknown Unknown Verified 01/28/25 07:51 Family History Brother Kidney disease Mother Cancer lung cancer Father Colon cancer Surgical History S/P laparotomy with lysis of adhesions Hx of arteriovenostomy for renal dialysis Hx of bilateral breast reduction surgery History of partial hysterectomy History of bowel resection Hx of appendectomy Hx of cholecystectomy Social History Smoking Status: Former smoker alcohol intake: never substance use type: does not use caffeine: Yes what type of physical activity do you participate in: none frequency: does not exercise ROS ROS Narrative GENERAL: Subjective fever and chills HEENT: Sinus drainage RESPIRATORY: Cough and shortness of breath CARDIAC: denies chest pain, palpitations, orthopnea, PND GASTROINTESTINAL: denies abdominal pain, nausea, vomiting, melena, GENITOURINARY: denies dysuria, urgency, frequency, heamaturia EXTREMITY: denies swelling MUSCULOSKELETAL: denies current joint pain or tenderness NEUROLOGIC: denies focal numbness, weakness, tingling HEMATOLOGIC: denies easy bruising and/or hemorrhage INTEGUMENT: denies rashes PSYCHIATRIC: denies suicidal or homicidal ideation Vital Signs Vital Signs Vital Signs: 01/28/25 07:51 01/28/25 07:58 01/28/25 08:15 Temperature 98.2 F Temperature Source Oral Pulse Rate 86 Respiratory Rate 18 Respiratory Effort Normal Respiratory Depth Normal Respiratory Pattern Normal Blood Pressure 166/4 H Blood Pressure Mean 58 (more content not included)... Normal [facility] Hematocrit Auto (Bld) [Volum e fraction]Ordered By: Dave Coronado on 01-28-2025 Hematocrit (Bld) [Volume fraction] 29.3 % Low 37-47 [facility] Hemoglobin A1c percentageOrd ered By: Kade Ricketts on 01-28-2025 HbA1c (Bld) [Mass fraction] 7.4 % High <5.7 [facility] Comment on above: Normal < 5.7 % Predi abetic 5.7 - 6.4 % Diabetic >or= 6.5 % Please note range changes. Hemoglobin measurementOrdere d By: Dave Coronado on 01-28-2025 Hemoglobin (Bld) [Mass/Vol] 9.7 g/dL Low 12.0-15.0 [facility] Immature granulocytes/100 WB C Auto (Bld)Ordered By: Dave Coronado on 01-28-2025 Immature granulocytes/100 WBC (Bld) 0.800 % 0.0-0.9 [facility] Comment on above: IG% - Immature Granu locytes (promyelocytes, myelocytes and metamyelocytes) > 1% indicates that a LEFT SHIFT is Present. Influenza virus A and B and SARS-CoV-2 (COVID-19) and Respiratory syncytial virus RNAOrdered By: Dave Coronado on 01-28-2025 SARS-CoV-2 (COVID-19) RNA NOA+probe Ql (Unsp spec) [facility] M100.678on 01-28-2025 M100.678 Pending SARS-CoV-2 (COVID 19) Negative INFLUENZA A Negative INFLUENZA B Negative RSV PCR Negative Normal [facility] Comment on above: Performed By: #### L 501.080 #### [facility] [address] [place], [address] MCV (mean corpuscular volume ) determinationOrdered By: Dave Coronado on 01-28-2025 MCV (RBC) [Entitic vol] 91.3 fL 81-99 [facility] Mean corpuscular hemoglobin (MCH) determinationOrdered By: [facility] HospitalNabeel on 01-28-2025 MCH (RBC) [Entitic mass] 30.2 pg 27.0-32.0 [facility] Mean corpuscular hemoglobin concentration (MCHC) determinationOrdered By: Dave Cliff on 01-28-2025 MCHC (RBC) [Mass/Vol] 33.1 g/dL 32-36 [facility] Mean platelet volume determi nationOrdered By: [place] Cliff on 01-28-2025 Platelet mean volume (Bld) [Entitic vol] 9.6 fL 6.2-12.0 [facility] Monocyte percentageOrdered B y: Dave Coronado on 01-28-2025 Monocytes/100 WBC (Bld) 5.4 % 0-10 [facility] Neutrophil percentageOrdered By: [place] Cliff on 01-28-2025 Neutrophils/100 WBC (Bld) 75.6 % High 47-70 [facility] Nucleated red blood cell per centageOrdered By: Dave Coronado on 01-28-2025 Nucleated RBC/100 WBC (Bld) [Ratio] 0 % 0-5 [facility] Platelet countOrdered By: Deuce Coronado on 01-28-2025 Platelets (Bld) [#/Vol] 205 10*3/uL 150-450 [facility] Potassium measurement (mass/ volume)Ordered By: Dave Coronado on 01-28-2025 Potassium (Unsp spec) [Mass/Vol] 4.1 mmol/L 3.3-5.1 [facility] RBC Auto (Bld) [#/Vol]Ordere d By: Dave Coronado on 01-28-2025 RBC (Bld) [#/Vol] 3.21 10*6/uL Low 4.2-5.4 [facility] Serum creatinine measurement (mass/volume)Ordered By: Dave Coronado on 01-28-2025 Creatinine [Mass/Vol] 4.48 mg/dL High 0.70-1.20 [facility] Serum glucose measurement (m ass/volume)Ordered By: Dave Coronado on 01-28-2025 Glucose [Mass/Vol] 227 mg/dL High 70-99 [facility] Serum or plasma calcium vignesh urement (mass/volume)Ordered By: Dave Colvin on 01-28-2025 Calcium [Mass/Vol] 9.9 mg/dL 7.6-11.0 [facility] Serum or plasma urea nitroge n measurement (mass/volume)Ordered By: Dave Coronado on 01-28-2025 Urea nitrogen [Mass/Vol] 19 mg/dL 4-19 [facility] Sodium levelOrdered By: Adal Coronado on 01-28-2025 Sodium [Moles/Vol] 141 mmol/L 133-145 [facility] White blood cell (WBC) count Ordered By: Dave Coronado on 01-28-2025 WBC (Bld) [#/Vol] 7.7 10*3/uL 4.4-11.0 [facility] BRIEF OP NOTon 01-13-2025 BRIEF OP NOT HNO ID: [id number] Author: PONCHO BAUTISTA MD Service: Vascular Surgery Author Type: Resident Type: Brief Op Note Filed: 01/13/2025 19:23 Note Text: BRIEF OPERATIVE / PROCEDURE NOTE LOG ID: [id number] Surgery/Procedure Date: 01/13/2025 Incision/Procedure Start Time: 6:37 PM Incision Close/Procedure End Time: 7:19 PM Surgeon(s)/Proceduralist(s ) and Sand Tester(s): Surgeons and Role: * Luna Thomas MD - Primary * Poncho Bautista MD - Resident - Assisting No Additional Staff Procedure(s): - Direct access of right upper extremity loop arteriovenous graft - Diagnostic fistulogram - Venoplasty of central graft stenosis w/ 8x80 Conquest Venoplasty of proximal central stent stenosis w/ 8x80 Conquest - Venoplasty of distal central stent with 8x80 [place] ROBERTA Angio: Access: Closure: 3-0 Prolene suture Contrast: 30mL Fluorotime: 4.5 min, 22 mGy Anesthesia: Procedural Sedation ASA Class: ASA Class: 3 Findings: Pulsatile thrill in AVG. Fistulogram revealed an area of stenosis within the central graft along the outflow track. This was treated with 8x80 Conquest. The central innominate vein stent was then treated with 8x80 Conquest and [place] balloons. Improved thrill, decreased pulsatility, and improved [...] SIGNATURE: Poncho Bautista MD PATIENT NAME: Sandy Bhatti DATE: January 13, 2025 TIME: 7:19 PM [facility] NURSING PROGon 01-13-2025 NURSING PROG HNO ID: [id number] Author: JAMI LYNN RN Service: Nursing Author Type: Registered Nurse Type: Nursing Progress Note Filed: 01/13/2025 15:25 Note Text: PRE OP LEARNING ASSESSMENT PROCEDURE/SURGERY: Vascular surgery READINESS TO LEARN COGNITIVE ABILITY: Alert and oriented MOTIVATION TO LEARN: Interested FAMILY SUPPORT: High - Very involved in pt care PATIENT LEARNS BEST BY: Verbal Instruction FACTORS AFFECTING LEARNING: None PHYSICAL LIMITATIONS AFFECTING LEARNING: None Electronically Signed By: Jami Lynn RN In Department: ADMITTING Normal [facility] OPERATIVE NOon 01-13-2025 OPERATIVE NO HNO ID: [id number] Author: LUNA THOMAS MD Service: Vascular Surgery Author Type: Physician Type: Operative Report Filed: 02/07/2025 13:08 Note Text: [facility] - Operative Report [address] [place] [address] [place] SANDY BHATTI : 1965 AGE: 59. SEX: F PATIENT TYPE: A HOSP SVC: S LOCATION: [id number] ATTENDING PHYSICIAN: Luna Thomas M.D. CSN NUMBER: [id number] DATE OF SURGERY/PROCEDURE: 01/13/2025 INCISION/PROCEDURE START TIME: 6:37 PM INCISION CLOSE/PROCEDURE END TIME: 7:21 PM PREOPERATIVE DIAGNOSIS: Right arm swelling, elevated central venous pressure. POSTOPERATIVE DIAGNOSIS: Right arm swelling, elevated central venous pressure. SURGEON: Luna Thomas M.D. CASUALTY INSURANCE CLAIM ADJUSTER: Poncho Richey. SURGERY/PROCEDURE: 1. Direct access right [...] towards the venous outflow. After placing a 7-Eritrean sheath, we advanced the catheter wire to [...] intervention with the assistance of Dr. Richey. Luna Thomas M.D. [id number] /[id number] [facility] 01-10-2025 CNPN Telephone (YULIN) -- SANDY BHATTI ([id number]) 1965 F Date Time Provider Department 01/10/25 LUNA THOMAS During your visit today, we recorded the following information about you: Krys Fountain 01/10/2025 2:20 PM Signed Patient called [...] twice daily as needed for Constipation. - NEPHRO-PETEY 0.8 mg tab Take 1 tablet by [...] V requiring *03/01/2018 08/29/2019 ESRD on dialysis ([facility]) [N18.6, Z99.2] 05/16/2019 VT (ventricular tachycardia) [I47.20] [...] aura, not intractable, without*05/21/2021 Encounter Status:Closed by KRYS FOUNTAIN on 01/10/25 Normal [facility] FUNDUS AUTOFLUORESCENCE PHOT O (FAF) OU (BOTH EYES)on 01-02-2025 [facility] Radiology Study observation (narrative) [facility] FUNDUS PHOTOS OU (BOTH EYES) on 01-02-2025 [facility] Radiology Study observation (narrative) [facility] OCT ANGIOGRAPHY OU (BOTH EYE S)on 01-02-2025 [facility] Radiology Study observation (narrative) [facility] OCT MACULA CIRRUS OU (BOTH E YES)on 01-02-2025 [facility] Radiology Study observation (narrative) [facility] CNPNon 01-01-2025 CNPN Telephone (GABYSMN) -- SANDY BHATTI ([id number]) 1965 F Date Time Provider Department 01/01/25 LUNA THOMAS During your visit today, we recorded the following information about you: Kenia Johnson, RN 01/01/2025 3:27 PM Signed Called patient in order to reschedule fistulogram. Patient did not answer the phone and unable to leave a voicemail. Lakshmi Davies RN 01/02/2025 8:55 AM Signed Addressed - see other telephone encounter from 01/01/25 for further documentation. Lakshmi Davies RN, BSN 8:54 AM January 02, 2025 [...] twice daily as needed for Constipation. - NEPHRO-PETEY 0.8 mg tab Take 1 tablet by [...] V requiring *03/01/2018 08/29/2019 ESRD on dialysis ([facility]) [N18.6, Z99.2] 05/16/2019 VT (ventricular tachycardia) [I47.20] [...] aura, not intractable, without*05/21/2021 Encounter Status:Closed by LAKSHMI DAVIES [facility]02[facility] SANDY BHATTI ([id number]) 1965 F Date Time Provider Department 01/01/25 LUNA THOMAS During your visit today, we recorded the following information about you: Khris Asuncion 01/01/2025 4:01 PM Signed Spoke with patient spouse and they both stated that 01/14 would be a great date for the surgery. Explained to patient spouse that someone will follow up with them tomorrow morning. Lakshmi Davies, RN 01/02/2025 8:51 AM Signed Due to a miscommunication/error, pt was offered Sunday 01/[address] Thomas, but he only does HD-related cases on Mondays. Called pt to discuss other options. Spoke with pt. Informed her of the error and that of Dr Thomas's availability to do the procedure on Mondays. Informed pt that we understand that she has HD on [facility], so we can see if one of his partners could do it on a or . Pt stated she would rather have Dr Thomas perform the procedure and can come as long as the procedure is in the afternoon. Pt agreed to 01/[address] Thomas. Lakshmi Davies RN, BSN 8:51 AM January 02, 2025 [...] twice daily as needed for Constipation. - NEPHRO-PETEY 0.8 mg tab Take 1 tablet by [...] 06/13/2024 Peripheral arterial disease (HCC) [I73.9] 07/10/2024 Migrain (more content not included)... Normal [facility] CNPNon 12-31-2024 CNPN Telephone ([facility]) -- SANDY BHATTI ([id number]) 1965 F Date Time Provider Department 12/31/24 RAUL DUQUE [facility] During your visit today, we recorded the following information about you: Leola Huffman RN 12/31/2024 1:11 PM Signed Called pt to give arrival time and instructions for fistulogram with Dr. Duque Pt states that she has had a cold for the last week and is still sick Discussed with Dr. Duque, pt should be rescheduled Informed pt and that she will receive a call back to reschedule She verbalized understanding All questions answered Leola Huffman RN Allergies As of Date: 12/31/2024 Noted [...] twice daily as needed for Constipation. - NEPHRO-PETEY 0.8 mg tab Take 1 tablet by [...] aura, not intractable, without*05/21/2021 Encounter Status:Closed by LEOLA HUFFMNA on 12/31/24 Normal [facility] Office Visit Reporton 2024 Office Visit Report [facility] [address] [place] [address] OFFICE VISIT Date of Service: 12/31/24 MR#: [id number] Acct: [id number] Patient: SANDY BHATTI Rep #: [id number] 1 : 1965 Provider: ELSY Johns Age/Sex: 59/F Location: [facility] Status: Signed Intake Vital Signs 06/05/23 11:23 12/31/24 10:12 Height 1.6 m 1.6 m Weight: 58.967 kg BMI 23.0 BP 169/66 H Blood Pressure Location Lt brachial Position Sitting Pulse 88 Pulse Source Monitor Temp 97.8 F Temp Source Temporal Pulse Oximetry (%) 95 Intake Visit Reasons: LEFT BIG TOE INJURY Chief Complaint: left great toe nail avulsion Allergies Penicillins Allergy (Severe, Verified 12/31/24 10:13) Anaphylaxis chlorhexidine Allergy (Mild, Verified 12/31/24 10:13) rash codeine Allergy (Unknown, Verified 12/31/24 10:13) Unknown latex Allergy (Unknown, Verified 12/31/24 10:13) Unknown Medications ???Medication ???Instructions ???Recorded ???Confirmed ???Type aspirin 81 mg tablet,delayed 81 mg PO DAILY heart health 12/31/24 History release (Adult Low Dose Aspirin) atorvastatin 40 mg tablet 40 mg PO QHS CHOLESTEROL 08/14/18 12/31/24 History vitamin B complex-vitamin C-folic 1 tab PO DAILY SUPPLEMENT 12/31/24 History acid 0.8 mg tablet (Kenneth-Petey) insulin aspart U-100 100 unit/mL 8 unit (0.08 mL) subcut TIDCM 01/0212/31/24 Rx (3 mL) subcutaneous pen (Novolog insulin #0 mL FlexPen U-100 Insulin aspart) insulin detemir U-100 100 unit/mL 48 unit (0.48 mL) subcut QHS 01/0212/31/24 Rx (3 mL) subcutaneous pen diabetes #0 mL amlodipine 5 mg tablet 5 mg PO DAILY BLOOD PRESSURE 05/3112/31/24 History clonidine HCl 0.3 mg tablet 0.3 mg PO QHS BLOOD PRESSURE 05/3112/31/24 History levothyroxine 125 mcg tablet 125 mcg PO DAILY THYROID 05/31/23 12/31/24 History lisinopril 40 mg tablet 40 mg PO DAILY BLOOD PRESSURE 05/0612/31/24 History sucroferric oxyhydroxide 500 mg 500 mg PO TID PHOSPHATE BINDER 12/31/24 History chewable tablet (Velphoro) oxycodone 5 mg tablet 5 mg PO Q6H PRN PRN Pain Score 11/2412/31/24 Rx 6-10 3 days #10 tabs ondansetron HCl 4 mg tablet 4 mg PO Q6H PRN nausea and 3 12/31/24 Rx vomiting #5 tabs pantoprazole 40 mg tablet,delayed 40 mg PO DAILY #30 tabs 06/08/23 12/31/24 Rx release PFSH Medical History (Updated 12/31/24 @ 10:09 by Shay CHIN, PA) S/p small bowel obstruction Incarcerated incisional hernia Wears hearing aid in both ears Hypothyroidism Dialysis patient Kidney disease Former smoker Congestive heart failure (CHF) TIA (transient ischemic attack) Problem with dialysis access Hemorrhoids Acid reflux Constipation Anxiety Depression Hypertension Heart disease Diabetes Thyroid disease Surgical History (Updated 06/14/23 @ 00:02 by Airam Lugo) S/P laparotomy with lysis of adhesions Hx of arteriovenostomy for renal dialysis Hx of bilateral breast reduction surgery History of partial hysterectomy History of bowel resection Hx of appendectomy Hx of cholecystectomy Family History Brother Kidney disease Mother Cancer lung cancer Father Colon cancer Social History Smoking Status: Former smoker alcohol intake: never substance use type: does not use caffeine: Yes what type of physical activity do you participate in: none frequency: does not exercise HPI HPI Chief Complaint: left great toe nail avulsion Details: SANDY BHATTI, is a 59 F with pmhx of IDDM and ESRD on dialysis, who presents to the office today for left great toe nail avulsion. The patient was putting on a pair of pajamas and the material caught on the edge of the toenail and tore it partially off. She had significant bleeding which she was able to control with a bandage and then came here after. The patients left great toenail is very long, curved, thickened, and yellow. It is still mostly attached. there is some oozing of dark red blood from it. It is tender to light palp. No redness. ROS Const Constitutional: No chills, fatigue or fever(s) Skin Skin: Positive for nail changes Endo Endocrine: No fatigue Exam Const General: cooperative, healthy appearing, comfortable, no acute distress, well developed and well groomed Nutritional Appearance: average body habitus and well nourished Orientation: alert, awake and oriented x3 Skin Other: left great toe: nail is partially avulsed but still firmly attached. There is some dark red blood oozing around the outer edges of it. there are dark red clots on it. the nail is long, curved, and very thickened and yellow. Immunizations Adacel(Tdap Adolesn/Ad (more content not included)... Normal [facility] 12-30-2024 [facility] Telephone ([employer]) -- SANDY BHATTI ([id number]) 1965 F Date Time Provider Department 12/30/24 LUNA THOMASJohnny During your visit today, we recorded the following information about you: Rabia Coles 12/30/2024 10:26 AM Signed Referral from [facility] for the patient to be scheduled for a fistulagram due to high venous pressure and cannulation issues. Referral has been scanned into the patient's chart. Vita Purdy RN 12/30/2024 2:52 PM Signed Spoke with patient. Agrees to fistulogram Monday 01/[address] Duque at [facility]. JESSICA Gorman Allergies As of Date: 12/30/2024 [...] twice daily as needed for Constipation. - NEPHRO-PETEY 0.8 mg tab Take 1 tablet by [...] Encounter Status:Closed by RABIA COLES on 12/30/24 Normal [facility] HEP B SURFACE AG [CCL]on Hepatitis B Surf. Ag Negative Normal Negative [facility] Comment on above: Result Comment: [facility] [address] [place] [address] Clifton Nathan III, M.D. [id number] Performed By: #### 2 74874 #### [facility],[address] [place], [place] [id number] BUNon 12-27-2024 Urea nitrogen [Mass/Vol] 7 mg/dL Normal [facility] Comment on above: Performed By: #### 2 86325 #### [facility],[address] [place] [address] Urea nitrogen [Mass/Vol] 31 mg/dL High - [facility] Comment on above: Performed By: #### 2 66598 #### [facility],[address] [place], [place] [id number] CBC + DIFFon 12-27-2024 Baso # 0.02 x10EE3/UL Normal 0.00 - 0.10 [facility] Comment on above: Performed By: #### 2 [id number] #### [facility],[address] [place] [address]95 Basophils/100 WBC (Bld) 0.4 % Normal 0.0 - 2.0 [facility] Comment on above: Performed By: #### 2 01522 #### [facility],[address] [place], [place] [id number] CBC + DIFF Normal [facility] Comment on above: Result Comment: CBC- COMPLETE BLOOD COUNT Performed By: #### 2 16985 #### [facility],[address] [place] [address] CELL COUNT 100 Normal [facility] Comment on above: Performed By: #### 2 96287 #### [facility],[address] [place] [address] 89124 EO 1.0 % Normal 0.0 - 7.0 [facility] Comment on above: Performed By: #### 2 27311 #### [facility],[address] [place] [address]21 EO # 0.09 x10EE3/UL Normal 0.00 - 0.50 [facility] Comment on above: Performed By: #### 2 51662 #### [facility],[address] [place] [address]679 Eosinophils/100 WBC (Bld) 1.5 % Normal 0.0 - 7.0 [facility] Comment on above: Performed By: #### 2 67360 #### [facility],[address] [place], [place] [phone] Erythrocyte distribution width (RBC) [Ratio] 14.1 % Normal 12.0 - 15.6 [facility] Comment on above: Performed By: #### 2 07723 #### [facility],[address] [place], [place] [phone] Hematocrit (Bld) [Volume fraction] 33.5 % Low 34.0 - 46.0 [facility] Comment on above: Performed By: #### 2 38951 #### [facility],[address] [place] [address]78 Hemoglobin (Bld) [Mass/Vol] 11.2 g/dL Low 12.0 - 16.0 [facility] Comment on above: Performed By: #### 2 11787 #### [facility],[address] [place] [address]114 Lymph # 1.41 x10EE3/UL Normal 0.80 - 2.80 [facility] Comment on above: Performed By: #### 2 77649 #### [facility],[address] [place] [address] 44821 Lymphocytes/100 WBC (Bld) 22.5 % Normal 20.0 - 45.0 [facility] Comment on above: Performed By: #### 2 90554 #### [facility],[address] [place], [place] [phone] Lymphocytes/100 WBC (Bld) 21 % Normal 20 - 45 [facility] Comment on above: Performed By: #### 2 76604 #### [facility],[address] [place] [address] MANUAL DIFF SEE BELOW Normal [facility] Comment on above: Performed By: #### 2 23294 #### [facility],[address] [place] [address] MCH (RBC) [Entitic mass] 30 pg Normal 27 - 33 [facility] Comment on above: Performed By: #### 2 45076 #### [facility],[address] [place] [address] MCHC 34 X10 3 Normal 32 - 36 [facility] Comment on above: Performed By: #### 2 81650 #### [facility],[address] [place], [place] [id number] MCV (RBC) [Entitic vol] 89 fL Normal 80 - 99 [facility] Comment on above: Performed By: #### 2 38829 #### [facility],[address] [place] [address] [place] # 0.38 x10EE3/UL Normal 0.20 - 1.00 [facility] Comment on above: Performed By: #### 2 64146 #### [facility],[address] [place] [address] MONOS 8 % Normal 0 - 10 [facility] Comment on above: Performed By: #### 2 76598 #### [facility],[address] [place] [address] 22332 MONOS % 6.0 % Normal 0.0 - 10.0 [facility] Comment on above: Performed By: #### 2 57244 #### [facility],[address] [place], [place] [phone] Morphology Jude (Bld) [Interp] NORMAL Normal [facility] Comment on above: Performed By: #### 2 51568 #### [facility],[address] [place] [address] Neut # 4.35 x10EE3/UL Normal 1.50 - 7.10 [facility] Comment on above: Performed By: #### 2 67414 #### [facility],[address] [place] [address] Neutrophils/100 WBC (Bld) 69.6 % Normal 46.0 - 76.0 [facility] Comment on above: Performed By: #### 2 23036 #### [facility],[address] [place] [address] PLATELET 198 x10EE3/UL Normal 150 - 450 [facility] Comment on above: Performed By: #### 2 03571 #### [facility],[address] [place] [address] Platelet mean volume (Bld) [Entitic vol] 7.6 fL Normal 6.6 - 10.5 [facility] Comment on above: Result Comment: AUTO MATED DIFFERENTIAL Performed By: #### 2 90402 #### [facility],[address] [place] [address] RBC 3.76 x 10EE6/UL Low 4.10 - 5.30 [facility] Comment on above: Performed By: #### 2 82570 #### [facility],[address] [place], [place] [id number] SEGS 70 % Normal 46 - 76 [facility] Comment on above: Performed By: #### 2 56688 #### [facility],[address] [place], [place] [address] WBC 6.3 x 10EE3/UL Normal 4.5 - 10.8 [facility] Comment on above: Performed By: #### 2 30908 #### [facility],[address] [place] [address] 238[address] HBV surface Ag Ser Qlon 12-04 HBV surface Ag Ql (S) Negative Normal Negative [facility] Comment on above: Order Comment: Speci men Type: BLOOD SPECIMENOrdering Facility: [facility] Address: [address] [place] [address] Performed By: #### 5 195-3 ####[facility] LABCLIA [id number] [place] [address] [place] POTASSIUMon 12-27-2024 Potassium [Moles/Vol] 4.5 mmol/L Normal 3.5 - 5.1 Germán l [facility] Comment on above: Performed By: #### 2 01686 #### [facility],[address] [place] [address] CNPNon 12-26-2024 CNPN Telephone (VASSMN) -- SANDY BHATTI ([id number]) 1965 F Date Time Provider Department 12/26/24 LUNA THOMAS During your visit today, we recorded the following information about you: Queta Patel 12/26/2024 2:53 PM Signed Jesse choi. This patient was scheduled to come in on january 03 since she is having issues with her fistula. The appointment was cancelled by gerry by way of your request. The patient called back and wanted to be rescheduled since she is having issues and can not wait til July. Also, the patient is asking if someone can send [facility] a fax? (Not sure what fax she is referring to be advised I would pass the message) Allergies As of Date: 12/26/2024 Noted Allergy Reaction CODEINE 12/11/2006 8 - GI Upset LATEX 03/22/2012 4 - Hives Comments: 2006 had reaction after surgery PENICILLINS 12/11/2006 7 - Swelling CHLORHEXIDINE 11/26/2018 2 - Rash Date Reviewed: 12/05/2024 Reviewed by: Edie Saamyoa LPN - Fully Assessed Prescriptions as of [...] twice daily as needed for Constipation. - NEPHRO-PETEY 0.8 mg tab Take 1 tablet by [...] not intractable, without*05/21/2021 Encounter Status:Closed by QUETA PATEL on 12/26/24 Normal [facility] ABO and Rh group panel (Bld) on 12-19-2024 ABO group Nom (Bld) A Normal [facility] Comment on above: Performed By: #### 3 4530-6 ####LEVI Garcia ([id number])[facility] ([facility])[address] [place] [address]405 D Ag Ql (Bld) Positive Normal [facility] Comment on above: Performed By: #### 3 4530-6 ####LEVI Garcia ([id number])[facility] ([facility])[address] [place] [address] Amylaseon 12-19-2024 Amylase [Catalytic activity/Vol] 23 U/L Low 29-103 [facility] Comment on above: Performed By: #### 1 798-8 #### LEVI Garcia ([id number]) [facility] ([facility]) [address] [place] [address] 19447 C peptideon 12-19-2024 C peptide [Mass/Vol] 1.5 ng/mL Normal 0.7-3.9 [facility] Comment on above: Performed By: #### 1 986-9 ####LEVI Garcia ([id number])[facility] ([facility])[address] [place] [address]4546 CBC panel Auto (Bld)on 12-19 Erythrocyte distribution width (RBC) [Ratio] 13.5 % Normal 11.5-14.5 [facility] Comment on above: Performed By: #### 5 8410-2 #### LEVI Garcia ([id number]) [facility] ([facility]) [address] [place] [address] 77353 Hematocrit (Bld) [Volume fraction] 32.6 % Low 36.0-46.0 [facility] Comment on above: Performed By: #### 5 8410-2 #### LEVI Garcia ([id number]) [facility] ([facility]) [address] [place] [address] 31630 Hemoglobin (Bld) [Mass/Vol] 10.5 g/dL Low 12.0-16.0 [facility] Comment on above: Performed By: #### 5 8410-2 #### LEVI Garcia ([id number]) [facility] ([facility]) [address] [place] [address] 98544 MCH (RBC) [Entitic mass] 29.2 pg Normal 26.0-34.0 [facility] Comment on above: Performed By: #### 5 8410-2 #### LEVI Garcia ([id number]) [facility] ([facility]) [address] [place] [address] 68870 MCHC (RBC) [Mass/Vol] 32.2 g/dL Normal 32.0-36.0 [facility] Comment on above: Performed By: #### 5 8410-2 #### LEVI Garcia ([id number]) [facility] ([facility]) [address] [place] [address] 70043 MCV (RBC) [Entitic vol] 91 fL Normal 80-100 [facility] Comment on above: Performed By: #### 5 8410-2 #### LEVI Garcia ([id number]) [facility] ([facility]) [address] [place] [address] 63217 Nucleated RBC/100 WBC (Bld) [Ratio] 0.0 /100 WBCs Normal 0.0-0.0 [facility] Comment on above: Performed By: #### 5 8410-2 #### LEVI Garcia ([id number]) [facility] ([facility]) [address] [place] [address] Platelets (Bld) [#/Vol] 200 x10*3/uL Normal 150-450 [facility] Comment on above: Performed By: #### 5 8410-2 #### LEVI Garcia ([id number]) [facility] ([facility]) [address] [place] [address] RBC (Bld) [#/Vol] 3.59 x10*6/uL Low 4.00-5.20 [facility] Comment on above: Performed By: #### 5 8410-2 #### LEVI Garcia ([id number]) [facility] ([facility]) [address] [place] [address] WBC (Bld) [#/Vol] 4.7 x10*3/uL Normal 4.4-11.3 [facility] Comment on above: Performed By: #### 5 8410-2 #### LEVI Garcia ([id number]) [facility] ([facility]) [address] [place] [address] Asiya 12-19-2024 JULIANNEN Telephone (TEJAS) -- SANDY BHATTI ([id number]) 1965 F Date Time Provider Department 12/19/24 LAKSHMI DAVIES During your visit today, we recorded the following information about you: Lakshmi Davies, RN 12/23/2024 10:10 AM Addendum Due to [...] a fistulagram. Pt gets dialysis M/W/F at [facility], which is closed //Mon/Mon (per information available online). Informed her that since it is so late in the day and her center is closed, we would have to call her tomorrow. Pt stated that on her dialysis days, she is usually there until about 10 am. Pt stated understanding and agreeable to plan. Lakshmi Davies RN, BSN 5:10 PM December 19, 2024 Vita Purdy RN 12/20/2024 9:23 AM Signed Attempted to call [facility]. [employer] network outage. Will re attempt to call. JESSICA Gorman Sarah E, RN 12/23/2024 10:09 AM Signed Attempted to speak with clinical team at [facility]. Following telephone prompts, was led to voicemail. Left message requesting call back. Lakshmi Davies RN, BSN 10:09 AM December 23, 2024 Lakshmi Davies RN 12/23/2024 3:06 PM Signed Called [facility] again to try to speak with clinical [...] again today- provided her with fax number. Lakshmi Davies RN, BSN 3:06 PM December 23, 2024 Asuncion Pinedo 12/24/2024 9:09 AM Signed Scanned referral in [facility] regarding Fistulagram. Lakshmi Davies RN 12/30/2024 4:06 PM Signed Concern has been addressed. See telephone encounter from today's date for further information. Lakshmi Davies RN, BSN 4:06 PM December 30, 2024 [...] twice daily as needed for Constipation. - NEPHRO-PETEY 0.8 mg tab Take 1 tablet by mouth once daily. - blood sugar diagnostic (BLOOD GLUCOSE TEST) test strip Test blood sugar(s) 3 (more content not included)... Normal [facility] Coagulation tissue factor in ducedon 12-19-2024 PT Coag (PPP) [Time] 10.2 s Normal 9.8-12.4 [facility] Comment on above: Performed By: #### 5 902-2 ####LEVI Garcia ([id number])[facility] ([facility])[address] [place] [address] 21557 Creatinineon 12-19-2024 Creatinine [Mass/Vol] 5.09 mg/dL High 0.50-1.05 [facility] Comment on above: Performed By: #### 2 160-0 #### LEVI Garcia ([id number]) [facility] ([facility]) [address] [place] [address] 21320 Creatinine [Mass/Vol]on 12-03 Glomerular filtration rate/1.73 sq M.predicted 9 mL/min/1.73m*2 Low >60 [facility] Comment on above: Result Comment: Calc ulations of estimated GFR are performed using the 2020 CKD-EPI Study Refit equation without the race variable for the IDMS-Traceable creatinine methods. https://jasn.asnjournals.org/content/early/ASN.993621 4431 Performed By: #### 2 160-0 #### LEVI Garcia ([id number]) [facility] ([facility]) [address] [place] [address] 89487 Cytomegalovirus Ab.IgG avidi tyon 12-19-2024 CMV IgG avidity IA [Ratio] Reactive Abnormal Nonreactive [facility] Comment on above: Performed By: #### 5 2984-2 ####LEVI Garcia ([id number])[facility] ([facility])[address] [place] [address] DRUG PROFILE 9, BLOOD W/ REF CHRIS TO CONFIRMATIONon 12-19-2024 Amphetamines Screen Ql Negative Normal Cutoff 20 [facility] Comment on above: Performed By: #### D S7LC ####[facility] (JUAN ANTONIO) ([id number])[address] [place] [address] Annotation comment [Interpretation] Narrative See Note Normal [facility] Comment on above: Result Comment: INTE RPRETIVE INFORMATION: Drug Screen 9 Panel, Serum or [...] developed and its performance characteristics determined by [facility]. It has not been cleared or approved by the US Food and Drug Administration. This test was performed in a CLIA certified laboratory and is intended for clinical purposes. Performed By: [facility] [address] [place] [address] Human Resources Temp: Jhonathan Ortega MD, PhD CLIA Number: [id number] Performed By: #### D S7LC ####[facility] ([facility]) ([id number])[address] [place] [address] Barbiturates Screen Ql Negative Normal Cutoff 50 [facility] Comment on above: Performed By: #### D S7LC ####[facility] ([facility]) ([id number])[address] [place] [address] Benzodiazepines Screen Ql Negative Normal Cutoff 50 [facility] Comment on above: Performed By: #### Pepe S7LC ####[facility] (BEAKER) ([id number])[address] [place] [address] Buprenorphine [Mass/Vol] Negative Normal Cutoff 1 [facility] Comment on above: Performed By: #### Pepe S7LC ####[facility] (BEAKER) ([id number])[address] [place] [address] Cannabinoids Screen Ql Negative Normal Cutoff 20 [facility] Comment on above: Performed By: #### Pepe S7LC ####[facility] (BEAKER) ([id number])[address] [place] [address] Cocaine Screen Ql Negative Normal Cutoff 20 [facility] Comment on above: Performed By: #### Pepe S7LC ####[facility] (BEAKER) ([id number])[address] [place] [address] Methadone Screen Ql Negative Normal Cutoff 25 [facility] Comment on above: Performed By: #### Pepe S7LC ####[facility] (BEAKER) ([id number])[address] [place] [address] Methamphetamine Ql Negative Normal Cutoff 20 [facility] Comment on above: Performed By: #### Pepe S7LC ####[facility] (BEAKER) ([id number])[address] [place] [address] Opiates Screen Ql Negative Normal Cutoff 20 [facility] Comment on above: Performed By: #### Pepe S7LC ####[facility] (BEAKER) ([id number])[address] [place] [address] oxyCODONE Ql Negative Normal Cutoff 20 [facility] Comment on above: Performed By: #### Pepe S7LC ####[facility] (BEAKER) ([id number])[address] [place] [address] Phencyclidine Screen Ql Negative Normal Cutoff 10 [facility] Comment on above: Performed By: #### Pepe S7LC ####[facility] (BEAKER) ([id number])[address] [place] [address] OLEGARIO-DE LA PAZ VIRUS ANTIBODY PANELon 12-19-2024 EBV capsid IgG IA Qn (S) Positive Abnormal Negative [facility] Comment on above: Order Comment: EBV I NTERPRETATION CHARTPRIMARY ACUTEVCA-IGG: +/-VCA-IGM: +/-EA-IGG: +/-NA-IGG: -LATE ACUTEVCA-IGG: +VCA-IGM: +/-EA-IGG: +/-NA-IGG: +/-RECOVERINGVCA-IGG: +VCA-IGM: -EA-IGG: +NA-IGG: -PREVIOUS INFECTIONVCA-IGG: +VCA-IGM: -EA-IGG: -NA-IGG: +/- Performed By: #### E BVP1 ####LEVI Garcia ([id number])[facility] ([facility])[address] [place] [address] EBV capsid IgM IA Qn (S) Negative Normal Negative [facility] Comment on above: Order Comment: EBV I NTERPRETATION CHARTPRIMARY ACUTEVCA-IGG: +/-VCA-IGM: +/-EA-IGG: +/-NA-IGG: -LATE ACUTEVCA-IGG: +VCA-IGM: +/-EA-IGG: +/-NA-IGG: +/-RECOVERINGVCA-IGG: +VCA-IGM: -EA-IGG: +NA-IGG: -PREVIOUS INFECTIONVCA-IGG: +VCA-IGM: -EA-IGG: -NA-IGG: +/- Performed By: #### E BVP1 ####LEVI Garcia ([id number])[facility] ([facility])[address] [place] [address]237 EBV early IgG Ql (S) Negative Normal Negative [facility] Comment on above: Order Comment: EBV I NTERPRETATION CHARTPRIMARY ACUTEVCA-IGG: +/-VCA-IGM: +/-EA-IGG: +/-NA-IGG: -LATE ACUTEVCA-IGG: +VCA-IGM: +/-EA-IGG: +/-NA-IGG: +/-RECOVERINGVCA-IGG: +VCA-IGM: -EA-IGG: +NA-IGG: -PREVIOUS INFECTIONVCA-IGG: +VCA-IGM: -EA-IGG: -NA-IGG: +/- Performed By: #### E BVP1 ####LEVI Garcia ([id number])[facility] ([facility])[address] [place] [address] EBV nuclear Ab Ql (S) Positive Abnormal Negative [facility] Comment on above: Order Comment: EBV I NTERPRETATION CHARTPRIMARY ACUTEVCA-IGG: +/-VCA-IGM: +/-EA-IGG: +/-NA-IGG: -LATE ACUTEVCA-IGG: +VCA-IGM: +/-EA-IGG: +/-NA-IGG: +/-RECOVERINGVCA-IGG: +VCA-IGM: -EA-IGG: +NA-IGG: -PREVIOUS INFECTIONVCA-IGG: +VCA-IGM: -EA-IGG: -NA-IGG: +/- Performed By: #### E BVP1 ####LEVI Garcia ([id number])[facility] ([facility])[address] [place] [address] FLOW AUTOCROSSMATCHon 2024 FLOW AUTOCROSSMATCH Normal [facility] Comment on above: Order Comment: Test performed at:[facility] LaboratoryW.[facility], [address] [place] [address] Performed By: #### F LAUC ####MISTY Munoz ([id number]) [facility] ([facility])[address] [place] [address] HLA RESULTS See Attached Normal [facility] Comment on above: Order Comment: Test performed at:[facility]ogen[facility] LaboratoryW.[facility], [address] [place] [address] Performed By: #### F LAUC ####MISYT NEUMANN S ([id number]) [facility] ([place] [id number] HIV 1+2 Ab+HIV1 p24 Agon HIV 1+2 Ab+HIV1 p24 Ag IA Ql Non-Reactive Normal Nonreactive [facility] Comment on above: Order Comment: HIV A g/Ab screen is performed using the Siemens Atell[employer] HIV Ag/Ab Combo assay which detects the presence of HIV p24 antigen as well as antibodies to HIV-1 (Group M and O) and HIV-2.No laboratory evidence of HIV infection. If acute HIV infection is suspected, consider testing for HIV RNA by PCR (viral load). Performed By: #### 5 6888-1 ####LEVI Garcia ([id number])[facility] ([facility])[address] [place] [address] HLA NEW KIDNEY,K/P EVALUATIO N PANELon 12-19-2024 FLOW AUTOCROSSMATCH Normal [facility] Comment on above: Order Comment: Test performed at:[facility], [address] [place] [address] Performed By: #### H JOSEFIEVAL ####MISTY NEL S ([id number]) [facility] ([facility])[address] [place] [address] HLA CLASS I AB SCREEN, Normal [facility] Comment on above: Order Comment: Test performed at:[facility] Immunogen[facility] LaboratoryJuanB[facility], [address] [place] [address] Performed By: #### H LAKIEVAL ####MISTY NEL S ([id number]) [facility] ([facility])[address] [place] [address] HLA CLASS II AB SCREEN,[facility] Comment on above: Order Comment: Test performed at:[facility] Immunogen[facility] LaboratoryJuanB[facility], [address] [place] [address] Performed By: #### H LAKIEVAL ####MISTY NEL S ([id number]) [facility] ([facility])[address] [place] [address] HLA RESULTS For collection only. Normal [facility] Comment on above: Order Comment: Test performed at:[facility], [address] [place], [place] [address] Performed By: #### H ANGELOVAL ####MISTY NEUMANN S ([id number]) [facility] ([facility])[address] [place] [address] HLA-A AND B AND C (class I) typing panel Normal [facility] Comment on above: Order Comment: Test performed at:[facility], [address] [place] [address] Performed By: #### H ANGELOVAL ####MISTY NEUMANN S ([id number]) [facility] ([facility])[address] [place] [facility], [facility] HLA-DP2 Ql (Bld/Tiss) Normal [facility] Comment on above: Order Comment: Test performed at:[facility]ogen[facility] LaboratoryW.[facility], [address] [place] [address] Performed By: #### H ANGELOVAL ####MISTY NEUMANN S ([id number]) [facility] ([facility])[address] [place] [address] HLA-DQB1 High resolution Nom (Bld/Tiss) Normal [facility] Comment on above: Order Comment: Test performed at:[facility], [address] [place], [place] [address] Performed By: #### H JOSEFIEVAL ####MISTY ANDERSENSPAN S ([id number]) [facility] ([place])[address] [place] [address] HLA-DRB1 High resolution Nom (Bld/Tiss) Normal [facility] Comment on above: Order Comment: Test performed at:[facility], [address] [place] [address] Performed By: #### Pete SAAVEDRA ####MISTY Munoz ([id number]) [facility] ([facility])[address] [place] [address], [place] [address] HLA TRANSPLANT ANTIBODY PANE Arturo 12-19-2024 HLA RESULTS See attached. Normal [facility] Comment on above: Order Comment: Test performed at:[facility] Immunogen[facility] LaboratoryJuanB[facility], [address] [place], [place] [address] Performed By: #### H AMERICATI ####MISTY NEUMANN S ([id number]) [facility] ([facility])[address] [place], [place] [address] HLA-A+B+C (class I) Ab (S) Normal [facility] Comment on above: Order Comment: Test performed at:[facility] LaboratoryJuanB[facility], [address] [place] [address] Performed By: #### H AMERICATI ####MISTY NEUMANN S ([id number]) [facility] ([facility])[address] [place], [place] [address] HLA-DP+DQ+DR (class II) Ab (S) [facility] Comment on above: Order Comment: Test performed at:[facility] Immun[facility] LaboratoryJuanB[facility], [address] [place], [place] [address] Performed By: #### H LANTI ####MISTY NEUMANN S ([id number]) [facility] ([facility])[address] [place] [address]959 HbA1c (Bld) [Mass fraction]o n 12-19-2024 Average glucose Estimated from glycated hemoglobin (Bld) [Mass/Vol] 148 mg/dL Normal Not Established [facility] Comment on above: Order Comment: Diagn osis of Diabetes-Adults Non-Diabetic: < or = 5.6% Increased risk for developing diabetes: 5.7-6.4% Diagnostic of diabetes: > or = 6.5% Performed By: #### 4 548-4 #### LEVI Garcia ([id number]) [facility] ([facility]) [address] [place] [address] Hemoglobin A1c/Hemoglobin.to juan 12-19-2024 HbA1c (Bld) [Mass fraction] 6.8 % High See comment [facility] Comment on above: Order Comment: Diagn osis of Diabetes-Adults Non-Diabetic: < or = 5.6% Increased risk for developing diabetes: 5.7-6.4% Diagnostic of diabetes: > or = 6.5% Performed By: #### 4 548-4 #### LEVI Garcia ([id number]) [facility] ([facility]) [address] [place] [address] Hepatic function 2000 panelo n 12-19-2024 Albumin BCP dye [Mass/Vol] 4.0 g/dL Normal 3.4-5.0 [facility] Comment on above: Performed By: #### 2 4325-3 #### LEVI Garcia ([id number]) [facility] ([facility]) [address] [place], [place] [address] ALP [Catalytic activity/Vol] 160 U/L High 33-136 [facility] Comment on above: Performed By: #### 2 4325-3 #### LEVI Garcia ([id number]) [facility] ([facility]) [address] [place] [address] 28853 ALT With P-5'-P [Catalytic activity/Vol] 12 U/L Normal 7-45 [facility] Comment on above: Result Comment: Bea ents treated with Sulfasalazine may generate falsely decreased results for ALT. Performed By: #### 2 4325-3 #### LEVI Garcia ([id number]) [facility] ([facility]) [address] [place] [address] 657[address] AST With P-5'-P [Catalytic activity/Vol] 22 U/L Normal 9-39 [facility] Comment on above: Performed By: #### 2 4325-3 #### LEVI Garcia ([id number]) [facility] ([facility]) [address] [place] [address] Bilirubin [Mass/Vol] 0.5 mg/dL Normal 0.0-1.2 [facility] Comment on above: Performed By: #### 2 4325-3 #### LEVI Garcia ([id number]) [facility] ([facility]) [address] [place] [address]51 Bilirubin.direct [Mass/Vol] 0.1 mg/dL Normal 0.0-0.3 [facility] Comment on above: Performed By: #### 2 4325-3 #### LEVI Garcia ([id number]) [facility] ([facility]) [address] [place] [address]79 Protein [Mass/Vol] 6.5 g/dL Normal 6.4-8.2 [facility] Comment on above: Performed By: #### 2 4325-3 #### LEVI Garcia ([id number]) [facility] ([facility]) [address] [place] [address]06 Hepatitis B virus core Abon 12-19-2024 HBV core Ab Ql (S) Non-Reactive Normal Nonreactive [facility] Comment on above: Performed By: #### 1 6933-4 ####LEVI Garcia ([id number])[facility] ([facility])[address] [place] [address] Hepatitis B virus surface Ab on 12-19-2024 HBV surface Ab Qn (S) 134.9 mIU/mL High <10.0 [facility] Comment on above: Result Comment: Inte rpretive Criteria: <10 mIU/mL Nonreactive >=10 mIU/mL Reactive Biotin interference may cause falsely decreased results. Patients taking a Biotin dose of up to 5 mg/day should refrain from taking Biotin for 24 hours before sample collection. Providers may contact their local laboratory for further information. Performed By: #### 1 6935-9 ####LEVI Garcia ([id number])[facility] ([facility])[address] [place] [address] Hepatitis B virus surface Ag on 12-19-2024 HBV surface Ag IA Ql Non-Reactive Normal Nonreactive [facility] Comment on above: Result Comment: Biot in interference may cause falsely decreased results. Patients taking a Biotin dose of up to 5 mg/day should refrain from taking Biotin for 24 hours before sample collection. Providers may contact their local laboratory for further information. Performed By: #### 5 196-1 ####LEVI Garcia ([id number])[facility] ([facility])[address] [place] [address] Hepatitis C virus Abon 12-19 HCV Ab Ql (S) Non-Reactive Normal Nonreactive [facility] Comment on above: Result Comment: Resu lts from patients taking biotin supplements or receiving high-dose biotin therapy should be interpreted with caution due to possible interference with this test. Providers may contact their local laboratory for further information. Performed By: #### 1 6128-1 ####LEVI Garcia ([id number])[facility] ([facility])[address] [place] [address] LIPID PANEL NON-FASTINGon Cholesterol [Mass/Vol] 129 mg/dL Normal 0-199 [facility] Comment on above: Result Comment: Age Desirable Borderline High High 0-19 Y 0 - [...] be performed immediately prior to Metamizole dosing. Performed By: #### L IPIN ####LEVI Garcia ([id number])[facility] ([facility])[address] [place] [address] Cholesterol in HDL [Mass/Vol] 68.8 mg/dL [facility] Comment on above: Result Comment: Age Very Low Low Normal High 0-19 Y < 35 < 40 40-45 ---- 20-24 Y ---- < 40 >45 ---- >24 Y ---- < 40 40-60 >60 Performed By: #### L IPIN ####LEVI Garcia ([id number])[facility] ([facility])[address] [place] [address] CHOLESTEROL/HDL RATIO 1.9 Normal [facility] Comment on above: Result Comment: Ref Values Desirable < 3.4 High Risk > 5.0 Performed By: #### L IPIN ####LEVI Garcia ([id number])[facility] ([facility])[address] [place] [address] NON-HDL CHOLESTEROL 60 mg/dL Normal 0-149 [facility] Comment on above: Result Comment: Age Desiable Borderline High High Very High 0-19 Y 0 - 119 120 - 144 >/= 145 >/= 160 20-24 Y 0 - 149 150 - 189 >/= 190 ---- >24 Y 30 MG/DL ABOVE LDL CHOLESTEROL GOAL Performed By: #### L IPIN ####LEVI Garcia ([id number])[facility] ([facility])[address] [place] [address] M. tuberculosis stim IFN-g a nd spot count panel (Bld)on 12-19-2024 Gamma interferon negative control spot count (Bld) [#] Passed [facility] Comment on above: Performed By: #### 7 4281-7 ####QUEST CHANTL ([id number])37716 [place] M. tuberculosis stim IFN-g CFP10 Ag spot count (Bld) [#] 0 [facility] Comment on above: Performed By: #### 7 4281-7 ####[facility] CHANTL ([id number])88939 [place] M. tuberculosis stim IFN-g ESAT-6 Ag spot count (Bld) [#] 0 Normal [facility] Comment on above: Performed By: #### 7 4281-7 ####[facility] CHANLILY ([id number])91604 [place] M. tuberculosis stim IFN-g Ql (Bld) [Interp] Negative Normal Negative [facility] Comment on above: Result Comment: A negative test result does [...] not be interpreted as a quantitative test. Performed By: #### 7 4281-7 ####[facility] PRIYANKA ([id number])89707 [place] Mitogen stimulated gamma interferon positive control spot count (Bld) [#] Passed Normal [facility] Comment on above: Result Comment: For additional information, please refer to http://education.Liquipel.iBuildApp/faq/YZK700 (This link is being provided for informational/ educational purposes only.) Performed By: #### 7 4281-7 ####[facility] CHANTL ([id number])77810 [place] NICOTINE AND METABOLITES,Son 12-19-2024 Cotinine [Mass/Vol] <5 Normal [facility] Comment on above: Performed By: #### N I+ME ####ANM WOODS) ([id number])[address] [place] [address] Nicotine [Mass/Vol] <5 Normal [facility] Comment on above: Result Comment: INTE RPRETIVE INFORMATION: Nicotine and Metabolites, Serum or Plasma, [...] developed and its performance characteristics determined by [facility]. It has not been cleared or approved by the US Food and Drug Administration. This test was performed in a CLIA certified laboratory and is intended for clinical purposes. Performed By: [facility] [address] [place] [address] Human Resources Temp: Jhonathan Ortega MD, PhD CLIA Number: [id number] Performed By: #### N I+ME ####[facility]) ([id number])[address] [place] [address] PT Coag (PPP) [Time]on 12-19 INR Coag (PPP) [Relative time] 0.9 Normal 0.9-1.1 [facility] Comment on above: Performed By: #### 5 902-2 ####LEVI Garcia ([id number])[facility] ([facility])[address] [place] [address] Phosphateon 12-19-2024 Phosphate [Mass/Vol] 2.9 mg/dL Normal 2.5-4.9 [facility] Comment on above: Result Comment: The performance characteristics of phosphorus testing in heparinized plasma have been validated by the individual laboratory site where testing is performed. Testing on heparinized plasma is not approved by the FDA; however, such approval is not necessary. Performed By: #### 2 777-1 #### LEVI Garcia ([id number]) [facility] ([facility]) [address] [place] [address] Treponema pallidum Ab.IgG+Ig Mon 12-19-2024 T. pallidum IgG+IgM IA Ql (S) Non-Reactive Normal Nonreactive [facility] Comment on above: Result Comment: No s ignificant level of Treponema pallidum antibody detected. Repeat testing in 2 to 4 weeks may be considered if early infection or incubating syphilis infection is suspected. Performed By: #### 4 7236-5 ####LEVI Garcia ([id number])[facility] ([facility])[address] [place] [address] Urea nitrogenon 12-19-2024 Urea nitrogen [Mass/Vol] 21 mg/dL Normal 6-23 [facility] Comment on above: Performed By: #### 3 094-0 #### LEVI Garcia ([id number]) [facility] ([facility]) [address] [place] [address] VZV IgG IA Ql (S)on 12-20-19 VARICELLA ZOSTER IGG INDEX 4.2 IA High <=0.8 [facility] Comment on above: Order Comment: NEGAT SAMIA: No IgG antibodies specific to VZV detected.It is likely that the patient has not had aprevious exposure to VZV through infectionor vaccination. Alternatively, the patient may have beenexposed to VZV but a failure to respond may indicateimmunodeficiency.EQUIVOCAL:Equivocal results; obtain additional sample for retesting.POSITIVE: IgG antibody to VZV detected. This may indicate thatthe patient was exposed to VZV through infection orvaccination. The interpretation of serological tests shouldtake into account the immunological status of the patient. Testresults for patients, including immunocompromised patients, neonates,and pediatric patients, reflect their capacity to respondimmunologically to the virus as well as their exposure to thepathogen. Patients treated with IVIG may demonstrate alteredresults in serological assays. Performed By: #### 1 5410-4 ####LEVI Garcia ([id number])[facility] ([facility])[address] [place] [address] Varicella zoster virus Ab.Ig Jeison 12-19-2024 VZV IgG IA Ql (S) Positive Abnormal Negative [facility] Comment on above: Order Comment: NEGAT SAMIA: No IgG antibodies specific to VZV detected.It is likely that the patient has not had aprevious exposure to VZV through infectionor vaccination. Alternatively, the patient may have beenexposed to VZV but a failure to respond may indicateimmunodeficiency.EQUIVOCAL:Equivocal results; obtain additional sample for retesting.POSITIVE: IgG antibody to VZV detected. This may indicate thatthe patient was exposed to VZV through infection orvaccination. The interpretation of serological tests shouldtake into account the immunological status of the patient. Testresults for patients, including immunocompromised patients, neonates,and pediatric patients, reflect their capacity to respondimmunologically to the virus as well as their exposure to thepathogen. Patients treated with IVIG may demonstrate alteredresults in serological assays. Performed By: #### 1 5410-4 ####LEVI Garcia ([id number])[facility] ([facility])[address] [place], [place] [address] [facility] 12-17-2024 [facility] Telephone (PODCCP) -- SANDY BHATTI ([id number]) 1965 F Date Time Provider Department 12/17/24 MALDONADO RAZA PODP During your visit today, we recorded the following information about you: Marek Garcia 12/17/2024 10:36 AM Signed Reason for call: .nahed delgado Magy called and he would like to schedule an appointment with DR lozada and her scan?? Contact Name (if not the patient) Home and cell number [phone] Diagnosis Fistula gram Kind Regards Queta Pinon 12/18/2024 11:03 AM Signed Patient states that the [facility] center is in need of something to be faxed to them for a fistulogram? (She wasn't too clear on what this request is for). Queta Patel 12/18/2024 11:05 AM Signed scheduled Lakshmi Davies RN 12/19/2024 5:15 PM Signed Spoke with pt on 12/19. See telephone encounter from that date. Lakshmi Davies RN, BSN 5:15 PM December 19, 2024 [...] needles, DISPOSABLE, (PEN NEEDLE) 31 gauge x /16 Use one needle per dose four times [...] twice daily as needed for Constipation. - NEPHRO-PETEY 0.8 mg tab Take 1 tablet by [...] aura, not intractable, without*05/21/2021 Encounter Status:Closed by MAREK GARCIA on 12/17/24 Normal [facility] CNOVon 12-05-2024 CNOV Office Visit (INTMWS ) -- SANDY BHATTI ([id number]) 1965 F Date Time Provider Department 12/05/24 9:20 AM MALDONADO RAZA INTMWS During your visit today, we recorded the following information about you: Temperature Pulse Blood pressure Weight 98.1 degrees 68/minute 124/64 61.1 kg Maldonado Raza MD 12/05/2024 10:46 AM Signed This note was created using Tripvistoriter. Subjective Patient presents with: 5 month follow-up Sandy Bhatti is a 59 year old female. She was doing reasonably well. Her diabetes mellitus was labile. Hypertension was controlled. ESRD was managed with dialysis. Migraines were infrequent. She is scheduled with [facility] for uveitis. Review of Systems Constitutional: [...] mouth twice daily as needed for Constipation. NEPHRO-PETEY 0.8 mg tab Take 1 tablet by [...] S2 normal. Murmur heard. Systolic murmur is pres (more content not included)... Normal [facility] Asiya 12-05-2024 JULIANNEN Telephone (INTMWS) -- SANDY BHATTI ([id number]) 1965 F Date Time Provider Department 12/05/24 MALDONADO RAZA INTMWS During your visit today, we recorded the following information about you: Chris Pierce, RN 12/05/2024 11:05 AM Signed [facility] phoned to let pcp know- they quit making levemir. [facility] pcp can order Lantus, Toujeo, or Tresiba in it's place. Maldonado Raza MD 12/05/2024 12:08 PM Signed The following approved medication requests have been transmitted electronically. Requested Prescriptions Signed Prescriptions Disp Refills insulin glargine (LANTUS SOLOSTAR U-100 INSULIN) 100 unit/mL (3 mL) 15 mL 5 Sig: Inject 48 Units subcutaneously daily at bedtime. Authorizing Provider: MALDONADO RAZA MD Allergies As of Date: 12/05/2024 Noted [...] twice daily as needed for Constipation. - NEPHRO-PETEY 0.8 mg tab Take 1 tablet by [...] disease (HCC) [I73.9] 07/10/2024 Migraine without aura, (more content not included)... Normal [facility] DBT Breast - bilateral diagn ostic for implanton 12-03-2024 IMPRESSION: There is no mammographic or sonographic [...] patient has dense breast tissue. Interpreting Radiologist: Rianna Galaviz M.D. Electronically signed on: 12/03/2024 [employer] Repairer: ANSLEY Transcribe Date/Time: Dec 03 2024 1:02P Dictated by: RIANNA GALAVIZ MD This examination was interpreted and the report reviewed and electronically signed by: RIANNA GALAVIZ MD on Dec 03 2024 2:01PM [facility] DIVISION OF RADIOLOGY * * *Final Report* * * DATE OF EXAM: Dec 03 2024 1:29PM [facility] 0627 - [facility] [place] / PROCEDURE REASON: Abnormal screening mammogram * * * * Physician Interpretation * * * * RESULT: [address] [address] [place] [address] #[id number] - [facility] [place] #[id number] - [facility] BREAST LTD HISTORY: 59 year-old patient seen [...] no suspicious findings in the imaged area. DIVISION OF RADIOLOGY Provider, Marii Ruthann [facility] - 12/03/2024 * * *Final Report* * * DATE OF EXAM: Dec 03 2024 1:29PM [facility] 0627 - [facility] [place] / PROCEDURE REASON: Abnormal screening mammogram * * * * Physician Interpretation * * * * RESULT: [place] [address] #[id number] - [facility] C[place] #[id number] - [facility] US BREAST LTD LT HISTORY: 59 year-old [...] no suspicious findings in the imaged area. IMPRESSION IMPRESSION: There is no mammographic or sonographic [...] patient has dense breast tissue. Interpreting Radiologist: Rianna Galaviz M.D. Electronically signed on: 12/03/2024 [employer] Repairer: ANSLEY Transcribe Date/Time: Dec 03 2024 1:02P Dictated by: RIANNA GALAVIZ MD This examination was interpreted and the report reviewed and electronically signed by: RIANNA GALAVIZ MD on Dec 03 2024 2:01PM EST [facility] DIAG W [place] BILon 2024 [facility] DIAG W [place] * * *Final Report* * * DATE OF EXAM: Dec 03 2024 1:29PM W 0627 - [facility] DIAG W [place] / PROCEDURE REASON: Abnormal screening mammogram * * * * Physician Interpretation * * * * RESULT: [place] [address] #[id number] - [facility] DIAG W [place] #[id number] - [facility] BREAST LTD HISTORY: 59 year-old patient seen [...] patient has dense breast tissue. Interpreting Radiologist: Rianna Galaviz M.D. Electronically signed on: 12/03/2024 [employer] Repairer: ANSLEY Transcribe Date/Time: Dec 03 2024 1:02P Dictated by: RIANNA GALAVIZ MD This examination was interpreted and the report reviewed and electronically signed by: RIANNA GALAVIZ MD on Dec 03 2024 2:01PM EST [id number] Normal [facility] [employer] BREAST LTD LTon 12-03 [facility] [employer] BREAST [employer] LT * * *Final Report* * * DATE OF EXAM: Dec 03 2024 1:50PM [facility] 0593 - [facility] [employer] BREAST [employer] LT / PROCEDURE REASON: Abnormal screening mammogram * * * * Physician Interpretation * * * * [address] [address] [place] [address] #[id number] - [facility] JASONOnur Saqib [place] #[id number] - [facility] [employer] BREAST [employer] LT HISTORY: 59 year-old patient seen for [...] patient has dense breast tissue. Interpreting Radiologist: Rianna Galaviz M.D. Electronically signed on: 12/03/2024 [employer] Repairer: ANSLEY Transcribe Date/Time: Dec 03 2024 1:43P Dictated by : RIANNA GALAVIZ MD This examination was interpreted and the report reviewed and electronically signed by: RIANNA GALAVIZ MD on Dec 03 2024 2:01PM EST [id number] Normal [facility] Panel InformationOrdered By: [facility] Provider on 12-03-2024 [facility] No Panel Informationon 12-03 Radiology Study observation (narrative) [facility] US Breast - left limitedon 0 12-03-2024 IMPRESSION: There is no mammographic or sonographic [...] patient has dense breast tissue. Interpreting Radiologist: Rianna Galaviz M.D. Electronically signed on: 12/03/2024 [employer] Repairer: ANSLEY Transcribe Date/Time: Dec 03 2024 1:43P Dictated by : RIANNA GALAVIZ MD This examination was interpreted and the report reviewed and electronically signed by: RIANNA GALAVIZ MD on Dec 03 2024 2:01PM [facility] DIVISION OF RADIOLOGY * * *Final Report* * * DATE OF EXAM: Dec 03 2024 1:50PM [facility] 0593 - [facility] [employer] BREAST LTD LT / PROCEDURE REASON: Abnormal screening mammogram * * * * Physician Interpretation * * * * [place] [address] #[id number] - [facility] [place] #[id number] - [facility] US BREAST LTD LT HISTORY: 59 year-old [...] no suspicious findings in the imaged area. DIVISION OF RADIOLOGY Provider[facility] * * *Final Report* * * DATE OF EXAM: Dec 03 2024 1:50PM [facility] 0593 - [facility] [employer] BREAST LTD LT / PROCEDURE REASON: Abnormal screening mammogram * * * * Physician Interpretation * * * * [place] [address] #[id number] - [place] #[id number] - [employer] BREAST [employer] LT HISTORY: 59 year-old patient seen for [...] no suspicious findings in the imaged area. IMPRESSION IMPRESSION: There is no mammographic or sonographic [...] patient has dense breast tissue. Interpreting Radiologist: Rianna Galaviz M.D. Electronically signed on: 12/03/2024 [employer] Repairer: ANSLEY Transcribe Date/Time: Dec 03 2024 1:43P Dictated by : RIANNA GALAVIZ MD This examination was interpreted and the report reviewed and electronically signed by: RIANNA GALAVIZ MD on Dec 03 2024 2:01PM [facility] MR CARDIAC MORPHOLOGY AND FU NCTION W AND WO IV CONTRASTon 11-26-2024 MR CARDIAC MORPHOLOGY AND FUNCTION W AND WO IV CONTRAST Interpreted By: Kelvin French, STUDY: MR CARDIAC MORPHOLOGY AND FUNCTION W AND WO IV CONTRAST; 11/26/2024 9:04 am INDICATION: Signs/Symptoms:Asymmetric severe LVH and LVOT gradient. Assess for HCM for pre-renal transplant evaluation. This study is performed to assess myocardial viability and damage, and to quantitate left ventricular and valvular function. ,I11.9 Hypertensive heart disease without heart failure,Z76.82 Awaiting organ transplant status,I25.10 Atherosclerotic heart disease of [place] coronary artery without angina pectoris COMPARISON: Echocardiography dated 09/18/2023 ACCESSION NUMBER(S): [id number] ORDERING CLINICIAN: MURTAZA CASTELLON TECHNIQUE: Siemens 1.5 Jolly MRI scanner. [...] within the sampled mid myocardial segments. 3. Norm (more content not included)... Normal [facility] MR Heart WO and W contrast I Von 11-26-2024 1. The left ventricl e is normal in size with normal systolic [...] Kelvin French 11/26/2024 12:04 PM Dictation workstation: [id number] [facility] Interpreted By: Kelvin Joshi, STUDY: MR CARDIAC MORPHOLOGY AND FUNCTION W AND WO IV CONTRAST; 11/26/2024 9:04 am INDICATION: Signs/Symptoms:Asymmetric severe LVH and LVOT gradient. Assess for HCM for pre-renal transplant evaluation. This study is performed to assess myocardial viability and damage, and to quantitate left ventricular and valvular function. ,I11.9 Hypertensive heart disease without heart failure,Z76.82 Awaiting organ transplant status,I25.10 Atherosclerotic heart disease of [place] coronary artery without angina pectoris COMPARISON: Echocardiography dated 09/18/2023 ACCESSION NUMBER(S): [id number] ORDERING CLINICIAN: MURTAZA CASTELLON TECHNIQUE: Siemens 1.5 Jolly MRI scanner. [...] reveals no abnormalities of the visualized organs. [facility] Kelvin French MD - 11/26/2024 Interpreted By: Kelvin French, STUDY: MR CARDIAC MORPHOLOGY AND FUNCTION W AND WO IV CONTRAST; 11/26/2024 9:04 am INDICATION: Signs/Symptoms:Asymmetric severe LVH and LVOT gradient. Assess for HCM for pre-renal transplant evaluation. This study is performed to assess myocardial viability and damage, and to quantitate left ventricular and valvular function. ,I11.9 Hypertensive heart disease without heart failure,Z76.82 Awaiting organ transplant status,I25.10 Atherosclerotic heart disease of [place] coronary artery without angina pectoris COMPARISON: Echocardiography dated 09/18/2023 ACCESSION NUMBER(S): [id number] ORDERING CLINICIAN: MURTAZA CASTELLON TECHNIQUE: Siemens 1.5 Jolly MRI scanner. [...] prior ischemic damage or an infiltrative process. (more content not included)... [facility] Work Phone: Radiology Study observation (narrative) [facility] Work Phone: MR Heart WO and W contrast I VOrdered By: Kelvin French on 11-26-2024 [facility] Work Phone: US.doppler Carotid arteries - bilateralon 07-25-2024 [place] [address] and Vascular Lab Report [facility] US CAROTID ARTERY DUPLEX BILATERAL Patient Name: SANDY BHATTI Reading Physician: [id number] Justin Berg DO Study Date: 07/25/2024 Ordering Physician: [id number] ROLY FONTANA MRN/PID: [id number] Technologist: Lilliam Mcfarlane RVT Technologist 2: Date of /Age: 5 1965 / 59 years Gender: F Admission Status: Outpatient Location Performed: [facility] Diagnosis/ICD: Other specified symptoms and signs involving the circulatory and respiratory systems-R09.89; Encounter for other preprocedural examination-Z01.818 Indication: Pre-operative exam CPT Codes: 28724 Cerebrovascular Carotid Duplex scan complete CONCLUSIONS: Right [...] cm/s Right Left ICA/CCA Ratio 1.1 2.4 [id number] Berg DO Final SYNGO Justin Berg DO - 07/25/2024 [place] [address] and Vascular Lab Report [facility] US CAROTID ARTERY DUPLEX BILATERAL Patient Name: SANDY BHATTI Reading Physician: [id number] Berg DO Study Date: 07/25/2024 Ordering Physician: [id number] FONTANA MRN/PID: [id number] Technologist: Lilliam Mcfarlane T Technologist 2: Date of /Age: 5 1965 / 59 years Gender: F Admission Status: Outpatient Location Performed: [facility] Diagnosis/ICD: Other specified symptoms and signs involving the circulatory and respiratory systems-R09.89; Encounter for other preprocedural examination-Z01.818 Indication: Pre-operative exam CPT Codes: 19410 Cerebrovascular Carotid Duplex scan complete CONCLUSIONS: Right [...] cm/s Right Left ICA/CCA Ratio 1.1 2.4 [id number] Justin Berg DO Final [facility] Work Phone: Radiology Study observation (narrative) [facility] Work Phone: US.doppler Carotid arteries - bilateralOrdered By: Justin Berg on 07-25-2024 [facility] Work Phone: [facility] US CAROTID ARTERY DUPLE X BILATERALon 07-25-2024 [facility] US CAROTID ARTERY DUPLEX BILATERAL [place] [address] and Vascular Lab Report [facility] US CAROTID ARTERY DUPLEX BILATERAL Patient Name: SANDY PRESSLEY MAGY Reading Physician: [id number] Justin Berg DO Study Date: 07/25/2024 Ordering Physician: [id number] FONTANA MRN/PID: [id number] Technologist: Lilliam Mcfarlane RVT Technologist 2: Date of /Age: 5 1965 / 59 years Gender: F Admission Status: Outpatient Location Performed: [facility] Diagnosis/ICD: Other specified symptoms and signs involving the circulatory and respiratory systems-R09.89; Encounter for other preprocedural examination-Z01.818 Indication: Pre-operative exam CPT Codes: 93109 Cerebrovascular Carotid Duplex scan complete CONCLUSIONS: Right [...] cm/s Right Left ICA/CCA Ratio 1.1 2.4 [id number] Justin Berg DO Final Normal [facility] ECG 12-LEADon 07-23-2024 ECG 12-LEAD Ventricular Rate 82 Atrial Rate 82 P-R Interval 154 QRS Duration 136 Q-T Interval 434 QTC Calculation(Bazett) 507 P [place] -9 R [place] -43 T [place] 104 QRS Count 13 Q Onset 208 P Onset 131 P Offset 183 T Offset 425 QTC Fredericia 481 Diagnosis Normal sinus rhythm Left axis deviation Right bundle branch block Left ventricular hypertrophy with QRS widening and repolarization abnormality Abnormal ECG When compared with ECG of 13-AUG-2024 11:05, No significant change was found Confirmed by Jigar Morris ([id number]) on 08/20/2024 8:59:44 AM Normal [facility] CT CARDIAC SCORING WO IV CON TRASTon 07-11-2024 CT CARDIAC SCORING WO IV CONTRAST Interpreted By: Donavon Morton, STUDY: CT CARDIAC SCORING WO IV CONTRAST; 07/11/2024 3:31 pm INDICATION: Signs/Symptoms:pre kidney transplant evaluation. COMPARISON: CT of the chest of 04/16/2024 ACCESSION NUMBER(S): [id number] ORDERING CLINICIAN: ROLY FONTANA TECHNIQUE: Using prospective ECG gating, CT scan [...] coronary heart disease events. According to the [employer] Clinical Expert Consensus [...] modify other non-lipid coronary risk factors. Reference: Pearsall P et al. Circulation. 2007; 115:402-426 Signed by: Donavon Morton 07/16/2024 5:46 PM Dictation workstation: [id number] [facility] KUNAL SCREENINGon 07-11-2024 KUNAL SCREENING * * *Final Report* * * DATE OF EXAM: Jul 11 2024 9:46AM [facility] 0581 - KUNAL SCREENING / PROCEDURE REASON: Encounter for screening mammogram for breast cancer * * * * Physician Interpretation * * * * RESULT: [facility] [address] [place] [address] HISTORY: Patient is 59 years old and [...] patient has dense breast tissue. Interpreting Radiologist: Peng Torres M.D. Electronically signed on: 07/12/2024 [employer] Facilities Repairer: ANSLEY Transcribe Date/Time: Jul 11 2024 9:24A Dictated by: PENG TORRES MD This examination was interpreted and the report reviewed and electronically signed by: PENG TORRES MD on Jul 12 2024 11:46AM EST [id number] Normal [facility] CNOVon 07-10-2024 CNOV Office Visit (VASSMN ) -- SANDY BHATTI ([id number]) 1965 F Date Time Provider Department 07/10/24 2:45 PM LUNA THOMAS During your visit today, we recorded the following information about you: Luna Thomas MD 07/10/2024 4:21 PM Signed [facility] DEPARTMENT OF VASCULAR SURGERY OUTPATIENT VISIT DATE July 10, 2024 OUTPATIENT VISIT TYPE ESTABLISHED SERVICE DATE: 07/10/2024 SERVICE TIME: 4:11 PM PRIMARY CARE PHYSICIAN: Maldonado Raza MD HISTORY OF PRESENT ILLNESS: Ms. Bhatti is a 59 year old female who presents today for a vascular surgery follow-up visit today. Arm swelling on the right has resolved. PAST MEDICAL HISTORY Diagnosis Date Acute kidney failure (HCC) 01/14/2018 Anxiety Arterial steal syndrome (HCC) 12/2018 Left AVF Calculus of ureter 06/12/2007 CKD (chronic kidney disease) stage V requiring chronic dialysis ([facility]) 03/01/2018 Dr. Pendleton, nephrology. Congestive heart failure [...] (HCC) 06/20/2023 Steal syndrome dialysis vascular access (HCC) 05/17/2019 Thyroid disorder TIA (transient ischemic attack) [...] COLONOSCOPY SCREENING 11/15/2022 COLOSTOMY/SKIN LEVEL CECOSTOMY 2007 [id number], reversed 2006 CREATION OF AVF, PERCUTANEOUS USING [...] W/WO RMVL TUBE OVARY 1991 Hysterectomy, RUSSELL SOCIAL HISTORY Social History Tobacco [...] Take 1 tablet by mouth once daily. ciprofl (more content not included)... Normal [facility] A/V FISTULA GRAFT UNL VAS LABon 07-10-2024 US A/V FISTULA GRAFT UNL VAS LAB Non-Invasive Vascular Laboratory [facility] F30 Upper Extremity Arterial Duplex Unilateral - Right Date of service/time: 07/10/2024 1:46:53 PM Name: MRS. SANDY BHATTI Date of : 1965 Age: 59 years [...] dialysis. Technologist: Joyce Toussaint RVT Ordering physician: LUNA THOMAS Interpreting physician: Jaylyn Fortune MD, RPVI Final CC [employer] Image : [id number] [email or web address] See Link below for Image Normal [facility] CNOVon 06-13-2024 CNOV Office Visit (INTMWS ) -- SANDY BHATTI Mai ([id number]) 1965 F Date Time Provider Department 06/13/24 3:00 PM MALDONADO RAZA INTMWS During your visit today, we recorded the following information about you: Temperature Weight Height 97.1 degrees 67.6 kg 1.59 m Maldonado Raza MD 06/13/2024 4:25 PM Signed Sandywiley Bhatti is a 59 year old female here [...] Current care team: Patient Care Team: Maldonado Raza MD as PCP - General (Internal Medicine) Dr. Miladys Shelton, [place] stock unloader. Dr. Luna Thomas, vascular surgery. [facility], Gynecology. Byron Day MD as Referring (Ophthalmology) Dr. Dave Pickett, Cardiology. Dr. Héctor Cruz, Ophthalmology. Helen Cuellar APRN, CNM, Gynecology. DAVITA for dialysis. Medical/Family history review Reviewed and updated problem list, medical/surgical/family/so cial history, medications, and allergies. Opioid use review [...] plan provided - Vaccine recommendations reviewed. Maldonado Raza MD 06/13/2024 4:25 PM Signed This note was created using [employer]. Subjective Sandy Bhatti is a 59 year old female. She missed dialysis yesterday due to migraines. She took Imitrex which helped. She had residual lightheadedness today. Her hypertension was difficult and labile. She typically held her blood pressure medications for the morning of dialysis. She had a cough for one month, but was scheduled for a chest xray at [facility] where she is being evaluated for transplant. [...] acting, (LOPRESSOR) 25 mg tablet Take 1 ta (more content not included)... Normal [facility] CNOVon 06-11-2024 CNTHONG Office Visit (KIRILL ) -- SANDY BHATTI ([id number]) 1965 F Date Time Provider Department 06/11/24 7:00 AM MANDIE YOUNGER During your visit today, we recorded the following information about you: Pulse Blood pressure Weight Height 78/minute 136/68 67.7 kg 1.6 m Mandie Younger APRN.CNP 06/11/2024 7:[address] [facility] Department of Cardiology Referring Provider: No ref. provider found Date: June 11, 2024 Chief Complaint: Congestive heart failure, unspecified HF chronicity, unspecified heart failure type ([facility]) Subjective: Sandy Bhatti is a 59 year old female who presents as an established patient for coronary artery disease and heart failure assessment management. History of arteriosclerotic vascular disease and hypertension. Patient is a dialysis patient with [facility], Syrziq-Lxxixklrp-Nprbqhk. Patient has a right upper arm fistula. ALLERGIES Allergen Reactions Codeine GI Upset Latex Hives 2005 had reaction after surgery Penicillins Swelling Chlorhexidine Rash PAST MEDICAL HISTORY: PAST MEDICAL HISTORY Diagnosis Date Acute kidney failure (HCC) 01/14/2018 Anxiety Arterial steal syndrome ([facility]) 12/2018 Left AVF Calculus of ureter 06/12/2007 CKD (chronic kidney disease) stage V requiring chronic dialysis ([facility]) 03/01/2018 Dr. Pendleton, nephrology. Congestive heart failure (HCC) Constipation Depression 09/04/2006 Encounter for screening for stenosis of carotid artery 03/27/2023 Less then 50% calcification bilaterally. ESRD on dialysis ([facility]) 05/16/2019 GERD (gastroesophageal reflux disease) Hemorrhoids History [...] (HCC) 06/20/2023 Steal syndrome dialysis vascular access ([facility]) 05/17/2019 Thyroid disorder TIA (transient ischemic attack) [...] COLONOSCOPY SCREENING 11/15/2022 COLOSTOMY/SKIN LEVEL CECOSTOMY 2007 [id number], reversed 2007 CREATION OF AVF, PERCUTANEOUS USING [...] lung cancer Coronary Artery Disease Brother dec. [place] 57 y.o. 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 Normal [facility] ECG COMPLETEon 06-11-2024 ECG COMPLETE Ventricular Rate : 7 8 BPM Atrial Rate : 78 BPM P-R Interval : 166 ms QRS Duration : 140 ms Q-T Interval : 444 ms QTC Calculation(Bazett) : 506 ms Calculated P [place] : 59 degrees Calculated R [place] : -50 degrees Calculated T [place] : 104 degrees Normal sinus rhythm Right bundle branch block Left anterior fascicular block Bifascicular block Left ventricular hypertrophy with repolarization abnormality Confirmed by DAVE PICKETT DO ([id number]) on 06/16/2024 7:02:00 PM NAME : SANDY BHATTI PID : [id number] : 1965 Gender : Female Race : ORD : [id number] Procedure Date : Jun 11 2024 07:07:23 Edit Date : Jun 16 2024 19:02:06 Diagnosis: Normal sinus rhythm Right bundle branch block Left anterior fascicular block Bifascicular block Left ventricular hypertrophy with repolarization abnormality Confirmed by DAVE PICKETT DO ([id number]) on 06/16/2024 7:02:00 PM Test Reason : HCS Location : 2 : [facility]ARD Overread By : DAVE PICKETT DO Edited By : DAVE PICKETT DO Referred By : , Acquired by : , [facility] 06-04-2024 CNPN Telephone (OPHTMN) -- SANDY BHATTI ([id number]) 1965 F Date Time Provider Department 06/04/24 CHRISTOPHER SNELL OPHN During your visit today, we recorded the following information about you: Celsa Chung 06/04/2024 11:[address] Byron Day is referring this pt to Dr. 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 They did specifically say Dr. Snell unless you feel this patient can be seen by any of our uveitis specialists in which case I can have our appt office help set the patient up. Please advise. They said they will also be sending notes over for review. Krys Lakhani, JESSICA 06/05/2024 6:31 AM Signed We can see them 07/11 at 9 am. Thanks, Celsa Kunz 06/05/2024 10:04 AM Signed She said she has other appts that day but that are good for her since she has dialysis on . Is there another she can be seen instead? Krys Lakhani RN 06/05/2024 10:19 AM Signed 08/08 at 2:30. Alissa Chew Rosenda Celsa 06/05/2024 10:38 AM Signed I spoke with her and she will come in on 08/08 at 2:30. Appt sent to be scheduled. Allergies As of Date: 06/04/2024 Noted Allergy Reaction CODEINE 12/11/2006 8 - GI Upset LATEX 03/22/2012 4 - Hives Comments: 2006 had reaction after surgery PENICILLINS 12/11/2006 7 - Swelling CHLORHEXIDINE 11/26/2018 2 - Rash Date Reviewed: 06/02/2024 Reviewed by: Mandie Younger APRN.HIGH FREQUENCY MILL OPERATOR - Fully Assessed Reason for Visit: Appointment [...] tongue every 5 minutes as needed. - NEPHRO-PETEY 0.8 mg tab Take 1 tablet by [...] V requiring *03/01/2018 08/29/2019 ESRD on dialysis ([facility]) [N18.6, Z99.2] 05/16/2019 VT (ventricular tachycardia) [I47.20] [...] 11/07/2023 History of stress test [Z92.89] 06/21/2023 [place] (more content not included)... Normal [facility] ANES POSTPROC EVALon 024 ANES POSTPROC EVAL HNO ID: [id number] Author: LUIS BURGOS MD Service: ? Author Type: Anesthesiologist Type: Anesthesia Postprocedure Evaluation Filed: 05/16/2024 22:14 Note Text: POST ANESTHESIA EVALUATION NOTE : 1965 Procedure Summary Date: 05/16/24 Room / Location: [place] [address] / [facility] CT AND VAS Anesthesia Start: 1503 Anesthesia Stop: 1742 Procedure: VENOGRAM EXTREMITY UPPER (Right) Diagnosis: Swelling of right upper extremity (Swelling of right upper extremity [M79.89]) Surgeons: Luna Thomas MD Responsible Provider: Luis Burgos MD Anesthesia Type: general ASA Status: 3 Anesthesia Type: general Last Vitals Vitals Value Taken Time BP 144/69 05/16/241999 Temp 36.5 ?C (97.7 ?F) 05/16/24 1740 Pulse 86 05/16/241999 Resp 25 05/16/241999 SpO2 94 % 05/16/241999 Post Anesthesia Patient Status Patient Evaluation: PACU. PACU/ICU Patient Condition: stable. Anticipated Disposition: ICU planned admission. Neurological Status: aware and responsive. Pulmonary Status: breathing comfortably on room air Airway Control: returned to baseline unsupported. Cardiovascular Status: stable. Pain Management: clinically adequate Postoperative Hydration: acceptable. Intraoperative Events: no significant anesthesia events Post Operative Nausea/Vomiting Status: no significant post operative nausea or vomiting Recommendation: further care per PACU/ICU/floor team. Anesthesia Observations No Documentation SIGNATURE: Luis Burgos MD PATIENT NAME: Sandy Bhatti DATE: May 16, 2024 TIME: 10:11 PM CSN: [id number] Normal [facility] ANES PRE-OPon 05-16-2024 ANES PRE-OP HNO ID: [id number] Author: LUIS BURGOS MD Service: ? Author Type: Anesthesiologist Type: Anesthesia Preprocedure Evaluation Filed: 05/16/2024 15:04 Note Text: ANESTHESIOLOGY DAY OF SURGERY NOTE : 1965 Procedure Information Anesthesia Start Date/Time: 05/16/24 1503 Procedure: VENOGRAM EXTREMITY UPPER (Right) Location: [place] [address] / [facility] CT AND VAS Surgeons: Luna Thomas MD Estimated body mass index is 26.89 kg/m? as calculated from the following: Height as of 01/18/24: 157.5 cm (5' 2). Weight as of this encounter: 66.7 kg (147 lb). Most recent hematocrit and potassium results: Hematocrit 37.1 05/08/2024 Potassium 4.7 05/08/2024 Relevant Problems No relevant active problems I - PHYSICAL EVALUATION AIRWAY Patient intubated: No. Tracheostomy tube not present Mallampati: II. TM distance: >3 FB. Neck ROM: full ROM without neurological symptoms. Mouth opening: adequate. DENTAL Dental findings: teeth intact. II - ANESTHESIA PLAN ASA Score: 3 The patient is not a current smoker. NPO Status: adequate Beta Chris Administration of chronic beta chris medication planned. Monitoring Plan Monitoring plan: standard ASA. Post Procedure Analgesic Plan Postoperative analgesic plan: parenteral or oral opioids. Informed Consent Anesthetic risks, benefits, alternatives, personnel and consent discussed: yes. Patient / Responsible Green Party agrees to proceed: yes Patient / Surrogate agrees to blood products: Yes DNR status not reviewed with patient and/or family prior to surgery. Significant changes in the patient condition since the History and Physical, not otherwise documented in primary service progress note: no. Potential Anesthesia issues that may suggest increased risk of complications or contraindication to planned procedure: none. Vitals Value Taken Time BP 146/66 05/16/24 0944 Pulse 80 05/16/24 1459 Resp 18 05/16/24 0944 Temp 36.2 ?C (97.2 ?F) 05/16/24 0944 SpO2 96 % 05/16/24 1459 Vitals shown include unfiled device data. Facility-Administered Medications as of 05/16/2024 Medication Dose Route Frequency - lidocaine (PF) 10 mg/mL (1 %) 1-2 mg injection (XYLOCAINE) 0.1-0.2 mL INTRADERMAL PRN Or - lidocaine 1% 0.25 mL subcutaneous j-tip syringe (XYLOCAINE) 0.25 mL SUBCUTANEOUS PRN - vancomycin iv piggyback 1 g in D5W 200 mL (VANCOCIN) 1 g INTRAVENOUS Pre-Op Once Outpatient Medications as of 05/16/2024 Medication Sig - atorvastatin (LIPITOR) 40 mg tablet Take [...] mouth once daily. - cloNIDine HCl (CATAPRES) 0.3 mg tablet Take 1 tablet by mouth daily at bedtime. - insulin detemir U-100 (LEVEMIR FLEXTOUCH U-100 INSULIN) 100 unit/mL (3 mL) injection pen Inject 48 Units subcutaneously daily at bedtime. - ferric citrate 210 mg iron tab Take 1 tablet by mouth once daily. - NEPHRO-PETEY 0.8 mg tab Take 1 tablet by mouth once daily. - aspirin, enteric coated (ASPIRIN, ENTERIC COATED) 81 mg EC tablet Take 1 tablet by mouth once daily. - ciprofloxacin HCl (CILOXAN) 0.3 % ophthalmic solution Use 1 Drop in the left eye four times daily. - SUMAtriptan (IMITREX) 50 mg tablet Take one tablet by mouth at onset of migraine. May repeat in 2 hours if ineffective - docusate sodium (COLACE) 100 mg capsule Take 1 capsule by mouth twice daily as needed for Constipation. - nitroglycerin sublingual (NITROQUICK) 0.4 mg SL tablet Dissolve 0.4 mg under the tongue every 5 minutes as needed. - blood sugar diagnostic (BLOOD GLUCOSE TEST) test strip Test blood sugar(s) 3 times daily. Dx: Type 2 DM - Uncontrolled E11.65 Insulin: Yes - Blood-Glucose Meter (BLOOD GLUCOSE MONITORING) monitoring kit 1 Each three times daily. E11.65. On insulin. I have interviewed and examined the patient. I have reviewed the medical record and/or the pre-anesthesia evaluation, pertinent labs, and test results. This contains updated information obtained within 48 hours of Surgery/Procedure. SIGNATURE: Luis Burgos MD PATIENT NAME: Sandy Bhatti DATE: May 16, 2024 TIME: 3:04 PM CSN: [id number] Normal [facility] BRIEF OP NOTon 05-16-2024 BRIEF OP NOT HNO ID: [id number] Author: ARTHUR DE OLIVEIRA MD Service: Vascular Surgery Author Type: Resident Type: Brief Op Note Filed: 05/16/2024 17:10 Note Text: BRIEF OPERATIVE / PROCEDURE NOTE LOG ID: [id number] Surgery/Procedure Date: 05/16/2024 Incision/Procedure Start Time: 4:06 PM Incision Close/Procedure End Time: 4:59 PM Surgeon(s)/Proceduralist(s ) and Sand Tester(s): Surgeons and Role: * Luna Thomas MD - Primary * Arthur De Oliveira MD - Resident - Assisting * Vilma Coffey DPM - Resident - Assisting No Additional Staff Procedure(s): Right arm fistulogram and central venogram 8x80 forklift picker UNDERCUTTER OPERATOR of SCV-innominate 10x80 fluency stent of SCV-innominate Post dilation with 8x80 forklift picker and 8x60 conquest balloon IVUS ROBERTA Angio: Access: Graft puncture 9Fr Closure: Stitch Contrast: 24 cc Fluorotime: 7.3 min, 63 mGy Anesthesia: General ASA Class: Findings: 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 After stent placement and post dilation there was good luminal expansion on IVUS and brisk flow on completion venography. Pulses: RUE: palpable radial pulse, thrill in AVG Medications: Antiplatelet: Yes - Medication: asa Dose: 81 Anticoagulation: No Statin: No - Reason: not home med Beta Chris: No - Reason: not home med Estimated Blood Loss: 10 mls Specimens: None Complications: None PRE-OP/PRE-PROCEDURE DIAGNOSIS: ESRD on HD with prolonged bleeding after dialysis POST-OP/POST-PROCEDURE DIAGNOSIS: Same as Preop Patient was accompanied to the next level of care by a licensed practitioner from the surgical team pending completion of this brief op note (or operative note) SIGNATURE: Arthur De Oliveira MD PATIENT NAME: Sandy Bhatti DATE: May 16, 2024 TIME: 5:05 PM Normal [facility] Gas and Carbon monoxide pane l (BldV)on 05-16-2024 Base excess Calc (BldV) [Moles/Vol] 7 mmol/L High 0-2 [facility] Comment on above: Order Comment: Speci men Type: VENOUS BLOOD SPECIMENOrdering Facility: [facility] Address: [address] [place] [address] Performed By: #### 2 4344-4 ####[facility] LABIA [id number] [place] [address] [place] Body temperature 98.6 [degF] Normal [facility] Comment on above: Order Comment: Speci men Type: VENOUS BLOOD SPECIMENOrdering Facility: [facility] Address: [address] [place] [address] Performed By: #### 2 4344-4 ####[facility] LABIA [id number] [place] [address] [place] Calcium.ionized (Bld) [Mass/Vol] 1.21 mmol/L Normal 1.08-1.30 [facility] Comment on above: Order Comment: Speci men Type: VENOUS BLOOD SPECIMENOrdering Facility: [facility] Address: [address] [place] [address] Performed By: #### 2 4344-4 ####[facility] LABIA [id number] [place] [address] [place] Calcium.ionized adjusted to pH 7.4 (BldA) [Moles/Vol] 1.22 mmol/L Normal 1.08-1.30 [facility] Comment on above: Order Comment: Speci men Type: VENOUS BLOOD SPECIMENOrdering Facility: [facility] Address: [address] [place] [address] Performed By: #### 2 4344-4 ####[facility] LABCLIA [id number] [address] [address] [place] Carboxyhemoglobin (BldV) [Mass fraction] 2.2 % High 0.0-2.0 [facility] Comment on above: Order Comment: Speci men Type: VENOUS BLOOD SPECIMENOrdering Facility: [facility] Address: [address] [place] [address] Result Comment: Carb oxyhemoglobin Reference Range for Smokers: 2.0-8.0% Performed By: #### 2 4344-4 ####[facility] LABCLIA [id number] [place] [address] [place] CO2 (BldV) [Partial pressure] 53 mm[Hg] Normal 42-55 [facility] Comment on above: Order Comment: Speci men Type: VENOUS BLOOD SPECIMENOrdering Facility: [facility] Address: [address] [place] [address] Performed By: #### 2 4344-4 ####[facility] LABCLIA [id number] [place] [address] [place] Glucose [Mass/Vol] 246 mg/dL High 60-105 [facility] Comment on above: Order Comment: Speci men Type: VENOUS BLOOD SPECIMENOrdering Facility: [facility] Address: [address] [place] [address] Performed By: #### 2 4344-4 ####[facility] LABCLIA [id number] [place] [id number] [place] HCO3 (Bld) [Moles/Vol] 33 mmol/L High 24-28 [facility] Comment on above: Order Comment: Speci men Type: VENOUS BLOOD SPECIMENOrdering Facility: [facility] Address: [address] [place], [place] [address] Performed By: #### 2 4344-4 ####[facility] LABCLIA [id number] [place] [address] [place] Hematocrit (Bld) [Volume fraction] 36.5 % Normal 36.0-46.0 [facility] Comment on above: Order Comment: Speci men Type: VENOUS BLOOD SPECIMENOrdering Facility: [facility] Address: [address] [place] [address] Performed By: #### 2 4344-4 ####[facility] LABIA [id number] [place] [address] [place] Hemoglobin (Bld) [Mass/Vol] 11.8 g/dL Normal 11.5-15.5 [facility] Comment on above: Order Comment: Speci men Type: VENOUS BLOOD SPECIMENOrdering Facility: [facility] Address: [address] [place] [address] Performed By: #### 2 4344-4 ####[facility] LABIA [id number] [place] [address] [place] Lactate [Moles/Vol] 1.6 mmol/L Normal 0.5-2.2 [facility] Comment on above: Order Comment: Speci men Type: VENOUS BLOOD SPECIMENOrdering Facility: [facility] Address: [address] [place] [address] Performed By: #### 2 4344-4 ####[facility] LABIA [id number] [place] [address] [place] Methemoglobin (Bld) [Mass fraction] 0.7 % Normal 0.0-1.5 [facility] Comment on above: Order Comment: Speci men Type: VENOUS BLOOD SPECIMENOrdering Facility: [facility] Address: [address] [place] [address] Performed By: #### 2 4344-4 ####[facility] LABCLIA [id number] [place] [address] [place] O2 THERAPY RA=Room Air Normal [facility] Comment on above: Order Comment: Speci men Type: VENOUS BLOOD SPECIMENOrdering Facility: [facility] Address: [address] [place] [address] Result Comment: 98 Performed By: #### 2 4344-4 ####[facility] LABCLIA [id number] [place] [address] [place] Oxygen (BldV) [Partial pressure] 40 mm[Hg] Normal 35-45 [facility] Comment on above: Order Comment: Speci men Type: VENOUS BLOOD SPECIMENOrdering Facility: [facility] Address: [address] [place] [address] Performed By: #### 2 4344-4 ####[facility] LABCLIA [id number] [place] [address] [place] Oxygen saturation in Venous blood 75 % Normal 60-85 [facility] Comment on above: Order Comment: Speci men Type: VENOUS BLOOD SPECIMENOrdering Facility: [facility] Address: [address] [place] [address] Performed By: #### 2 4344-4 ####[facility] LABCLIA [id number] [place] [address] [place] Oxyhemoglobin (BldV) [Mass fraction] 73 % Normal 60-85 [facility] Comment on above: Order Comment: Speci men Type: VENOUS BLOOD SPECIMENOrdering Facility: [facility] Address: [address] [place], [place] [address] Performed By: #### 2 4344-4 ####[facility] LABCLIA [id number] [place] [address] [place] pH (BldV) 7.40 [pH] Normal 7.32-7.42 [facility] Comment on above: Order Comment: Speci men Type: VENOUS BLOOD SPECIMENOrdering Facility: [facility] Address: [address] [place] [address] Performed By: #### 2 4344-4 ####[facility] LABCLIA [id number] [place] [address] [place] Potassium [Moles/Vol] 4.8 mmol/L Normal 3.5-5.0 [facility] Comment on above: Order Comment: Speci men Type: VENOUS BLOOD SPECIMENOrdering Facility: [facility] Address: [address] [place] [address] Performed By: #### 2 4344-4 ####[facility] LABCLIA [id number] [place] [address] [place] Sodium [Moles/Vol] 138 mmol/L Normal 136-144 [facility] Comment on above: Order Comment: Speci men Type: VENOUS BLOOD SPECIMENOrdering Facility: [facility] Address: [address] [place] [address] Performed By: #### 2 4344-4 ####[facility] LABCLIA [id number] [place] [address] [place] OPERATIVE NOon 05-16-2024 OPERATIVE NO HNO ID: [id number] Author: LUNA THOMAS MD Service: Vascular Surgery Author Type: Physician Type: Operative Report Filed: 05/22/2024 13:28 Note Text: [facility] - Operative Report [address] [place] [address] [place] SANDY BHATTI : 1965 AGE: 59. SEX: F PATIENT TYPE: A HOSP SVC: VSS LOCATION: [id number] ATTENDING PHYSICIAN: LUNA THOMAS CSN NUMBER: [id number] DATE OF SURGERY/PROCEDURE: 05/16/2024 INCISION/PROCEDURE START TIME: 4:06 PM INCISION CLOSE/PROCEDURE END TIME: 4:59 PM PREOPERATIVE DIAGNOSIS: Right arm swelling with central vein stenosis, end-stage renal disease, hypertension. POSTOPERATIVE DIAGNOSIS: Right arm swelling with central vein stenosis, end-stage renal disease, hypertension. SURGEON: Luna Thomas M.D. CASUALTY INSURANCE CLAIM ADJUSTER: Sheila. SURGERY/PROCEDURE: 1. Direct access to right upper extremity brachial to axillary vein graft. 2. Selective catheterization of superior vena cava. 3. Superior vena cavogram, right arm venogram. 4. Percutaneous transluminal angioplasty with 8 mm balloon of the right innominate and subclavian vein. 5. Placement of 10 mm x 80 covered self-expanding stent right innominate vein, right subclavian vein, postdilatation in the 10 mm x 80 mm covered self- expanding stent. Postdilatation to 8 mm with high-pressure balloon to 20 atmospheres. 6. Intravascular ultrasound. ANESTHESIA: General. ESTIMATED BLOOD LOSS: 20 mL. DRAINS: None. COMPLICATIONS: None. OPERATIVE INDICATIONS: The patient with a right arm graft. She had a previous graft to axillary vein reconstruction. She has had central vein stenosis recurrent at 4 months now, requires venogram, possible intervention. DESCRIPTION OF PROCEDURE: The patient was brought to the operating room suite. Identification was confirmed. Informed consent was verified. After general anesthesia was achieved, prepared and draped in sterile fashion over the right arm. Time-out was done to identify the patient, procedure, site initially, direct access to the brachial artery to axillary vein graft was performed with a micropuncture upsized to 8-Eritrean sheath. Working through the 8-Eritrean sheath, we passed the catheter wire across the central venous system. After passing catheter wire across central venous system into the inferior vena cava, we performed a venogram which demonstrated a patent arteriovenous graft. There was a stenosis at the graft to vein interface greater than 80%. The subclavian vein had a greater than 80% stenosis at the subclavian axillary junction and there was a greater than 80% stenosis at the right innominate vein with patent SVC. We performed IVUS to verify our intraluminal dimensions. We then angioplastied to 8 mm. There was minimal response with improved patency of significant intraluminal stenosis diffusely verified by ultrasound. A 10 mm x 80 covered self-expanding stent was then deployed from the origin of the right innominate to the axillary subclavian graft. It was post dilated to 8 mm with a high-pressure balloon in 20 atmospheres. Completion venogram demonstrated patent blood vessel widely patent with no residual stenosis. Sheaths, catheters, guidewires removed. Manual pressure was held to effect hemostasis at 20 minutes, no hematoma. I was present for entire procedure. I performed percutaneous access, selective catheterization, and intervention with the assistance of Dr. Sosa. FINDINGS: Patent axillary subclavian graft. The subclavian innominate with diffuse high-grade stenosis near total occlusion. Luna Thomas M.D. LK:[id number] /[id number] Normal [facility] Heart Perfusion W stress and W radionuclide Rhoda 04-16-2024 1. No evidence of is chemia or prior infarction. 2. The left ventricle is normal in size. 3. Normal LV wall motion with an LV EF estimated at 60%. I personally reviewed the images/study and I agree with the findings as stated. This study was interpreted at [place], [place]. Signed by: Ab Gary 04/16/2024 2:27 PM Dictation workstation: [id number] MMODAL Interpreted By: Ab Gerber and Rana Mariam STUDY: NUCLEAR STRESS TEST; 04/16/2024 1:49 pm INDICATION: Signs/Symptoms:pre-kidney transplant evaluation for kidney transplant. COMPARISON: None. ACCESSION NUMBER(S): [id number] ORDERING CLINICIAN: ROLY FONTANA TECHNIQUE: DIVISION OF NUCLEAR MEDICINE PHARMACOLOGIC STRESS MYOCARDIAL PERFUSION SCAN, ONE DAY PROTOCOL The patient received an intravenous dose of 11.5 mCi of Tc-99m Myoview and resting emission tomographic (SPECT) images of the myocardium were acquired. The patient then received an intravenous infusion of 0.4mg regadenoson (Lexiscan) followed by an additional dose of 32 mCi of Tc-99m Myoview. Stress phase SPECT images of the myocardium were then acquired. These included ECG-gated images to assess and quantify ventricular function. FINDINGS: Both stress and rest studies demonstrate grossly normal perfusion throughout the left ventricle. The left ventricle is normal in size. Gated images demonstrate normal LV wall motion with an LV EF estimated at 60%. MMODAL Ab Gary MD - 04/16/2024 Interpreted By: Ab Gary and Rana Mariam STUDY: NUCLEAR STRESS TEST; 04/16/2024 1:49 pm INDICATION: Signs/Symptoms:pre-kidney transplant evaluation for kidney transplant. COMPARISON: None. ACCESSION NUMBER(S): [id number] ORDERING CLINICIAN: ROLY FONTANA TECHNIQUE: DIVISION OF NUCLEAR MEDICINE PHARMACOLOGIC STRESS MYOCARDIAL PERFUSION SCAN, ONE DAY PROTOCOL The patient received an intravenous dose of 11.5 mCi of Tc-99m Myoview and resting emission tomographic (SPECT) images of the myocardium were acquired. The patient then received an intravenous infusion of 0.4mg regadenoson (Lexiscan) followed by an additional dose of 32 mCi of Tc-99m Myoview. Stress phase SPECT images of the myocardium were then acquired. These included ECG-gated images to assess and quantify ventricular function. FINDINGS: Both stress and rest studies demonstrate grossly normal perfusion throughout the left ventricle. The left ventricle is normal in size. Gated images demonstrate normal LV wall motion with an LV EF estimated at 60%. IMPRESSION: 1. No evidence of ischemia or prior infarction. 2. The left ventricle is normal in size. 3. Normal LV wall motion with an LV EF estimated at 60%. I personally reviewed the images/study and I agree with the findings as stated. This study was interpreted at [place], [place]. Signed by: Ab Gary 04/16/2024 2:27 PM Dictation workstation: [id number] [facility] Work Phone: Radiology Study observation (narrative) [facility] Work Phone: [place] Heart Perfusion W stress and W radionuclide IVOrdered By: Ab Gary on 04-16-2024 [facility] Work Phone: No Panel Informationon 04-16 [facility], [address] [place] [address], [facility] [address] [address] and Nuclear Pharmacologic Stress Test Patient Name: SANDY BHATTI Ordering Provider: [id number] ROLY FONTANA Study Date: 04/16/2024 Reading Physician: [id number] Raymon Angel MD MRN/PID: [id number] Supervising Physician: Fellow: Date of /Age: 5 1965 / 59 years Fellow: Gender: F Nurse: Inna Norris RN, CVRN-BC Admit Date: 04/16/2024 Clockmaker: Admission Status: Outpatient Soft Shoe Dancer: N/A Height: 160.02 cm Technologist: Xin Oliveira Weight: 67.59 kg Additional Staff: BSA: 1.71 m2 BMI: 26.39 kg/m2 Patient Location: [facility] Study Type: CARDIOLOGY INTERPRETATION OF NUCLEAR STRESS Diagnosis/ICD: Encounter for other preprocedural examination-Z01.818; Atherosclerotic heart disease-I25.10 Indication: Pre-Op Evaluation CPT Code: Stress Test Interpretation-10722; Stress Test Supervision-56525 Falls Risk: Low: Patient has a low risk for sustaining a fall; enviromental safety interventions in place. Study Details: Correct procedure and correct patient verified verbally and with ID Band checked. Patient History: Sedentary life style, translplant, renal failure, hypertension, dyslipidemia, lipid therapy and coronary artery disease. Allergies: Tylenol #3, Latex, PCN. Diabetes: Yes, managed with Insulin. Medications: The patient's prescribed medication is Norvasc, Lisinopril, ASA, Metoprolol, Lipitor, Clonidine, Syntroid, Insulin. The patient took medications as prescribed. Patient Performance: Patient received a total of 0.4 mg of Regadenoson at 11:03:38 AM. Patient received a total of 32 mCi of Myoview at 11:04:11 AM. The patient did not exercise during infusion. The peak heart rate achieved was 90 bpm, which was 56 % of the age predicted target heart rate of 160 bpm. The resting blood pressure was 170/69 mmHg with a heart rate of 78 bpm. The patient developed no symptoms during the stress exam. The blood pressure response was normal. The test was terminated due to: completed lab protocol. Patient has met the discharge criteria and is discharged to home. Baseline ECG: Resting ECG showed normal sinus rhythm with right bundle branch block, left axis deviation, left ventricular hypertrophy and ST-T wave abnormality. Stress ECG: Stress ECG showed normal sinus rhythm, with no abnormal findings. ST segment non-diagnostic due to baseline abnormalities. Stress Stage Data: +--+------+-------+------- + HR Sys BP Miller BP Comments +--+------+-------+------- + 78 170 69 +--+------+-------+------- + 83 955 32 6338 minute, 0.4mg IV Lexiscan given, no symptoms +--+------+-------+------- + 88 574 90 1915 minutes, no symptoms +--+------+-------+------- + Recovery ECG: Recovery ECG showed normal sinus rhythm, with no abnormal findings. The heart rate recovery was normal. + +--+------+-- -----+ -----+ HR Sys BP Miller BP Comments + +--+------+-- -----+ -----+ Recovery I 90 921 42 3061 minute, no symptoms + +--+------+-- -----+ -----+ Recovery II 90 694 65 8240 minutes, no symptoms + +--+------+-- -----+ -----+ Recovery III 91 749 56 6059 minutes, no symptoms + +--+------+-- -----+ -----+ Recovery IV 88 442 16 5712 minutes, no symptoms + +--+------+-- -----+ -----+ Summary: 1. No clinical evidence for ischemia at a maximal infusion. 2. This exercise test is indeterminate because of an abnormal baseline ECG. 3. Nuclear image results are reported separately. [id number] Raymon Angel MD Electronically signed on 04/16/2024 at 12:45:38 PM Final Raymon Amin MD PhD - 04/16/2024 [facility], [address] [place] [address], [address] [address] and Nuclear Pharmacologic Stress Test Patient Name: SANDY BHATTI Ordering Provider: [id number] ROLY CARMEN Study Date: 04/16/2024 Reading Physician: [id number] Raymon Angel MD MRN/PID: [id number] Supervising Physician: Fellow: Date of /Age: 5 1965 / 59 years Fellow: Gender: F Nurse: Inna Norris RN, CVRN-BC Admit Date: 04/16/2024 Clockmaker: Admission Status: Outpatient Soft Shoe Dancer: N/A Height: 160.02 cm Technologist: Xin Oliveira Weight: 67.59 kg Additional Staff: BSA: 1.71 m2 BMI: 26.39 kg/m2 Patient Location: [facility] Study Type: CARDIOLOGY INTERPRETATION OF NUCLEAR STRESS Diagnosis/ICD: Encounter for other preprocedural examination-Z01.818; Atherosclerotic heart disease-I25.10 Indication: Pre-Op Evaluation CPT Code: Stress Test Interpretation-79310; Stress Test Supervision-70583 Falls Risk: Low: Patient has a low risk for sustaining a fall; enviromental safety interventions in place. Study Details: Correct procedure and correct patient verified verbally and with ID Band checked. Patient History: Sedentary life style, translplant, renal failure, hypertension, dyslipidemia, lipid therapy and coronary artery disease. Allergies: Tylenol #3, Latex, PCN. Diabetes: Yes, managed with Insulin. Medications: The patient's prescribed medication is Norvasc, Lisinopril, ASA, Metoprolol, Lipitor, Clonidine, Syntroid, Insulin. The patient took medications as prescribed. Patient Performance: Patient received a total of 0.4 mg of Regadenoson at 11:03:38 AM. Patient received a total of 32 mCi of Myoview at 11:04:11 AM. The patient did not exercise during infusion. The peak heart rate achieved was 90 bpm, which was 56 % of the age predicted target heart rate of 160 bpm. The resting blood pressure was 170/69 mmHg with a heart rate of 78 bpm. The patient developed no symptoms during the stress exam. The blood pressure response was normal. The test was terminated due to: completed lab protocol. Patient has met the discharge criteria and is discharged to home. Baseline ECG: Resting ECG showed normal sinus rhythm with right bundle branch block, left axis deviation, left ventricular hypertrophy and ST-T wave abnormality. Stress ECG: Stress ECG showed normal sinus rhythm, with no abnormal findings. ST segment non-diagnostic due to baseline abnormalities. Stress Stage Data: +--+------+-------+------- + HR Sys BP Miller BP Comments +--+------+-------+------- + 78 170 69 +--+------+-------+------- + 83 074 86 5585 minute, 0.4mg IV Lexiscan given, no symptoms +--+------+-------+------- + 88 606 42 1552 minutes, no symptoms +--+------+-------+------- + Recovery ECG: Recovery ECG showed normal sinus rhythm, with no abnormal findings. The heart rate recovery was normal. + +--+------+-- -----+ -----+ HR Sys BP Miller BP Comments + +--+------+-- -----+ -----+ Recovery I 90 310 28 7964 minute, no symptoms + +--+------+-- -----+ -----+ Recovery II 90 697 97 0793 minutes, no symptoms + +--+------+-- -----+ -----+ Recovery III 91 088 06 8902 minutes, no symptoms + +--+------+-- -----+ -----+ Recovery IV 88 724 50 2794 minutes, no symptoms + +--+------+-- -----+ -----+ Summary: 1. No clinical evidence for ischemia at a maximal infusion. 2. This exercise test is indeterminate because of an abnormal baseline ECG. 3. Nuclear image results are reported separately. [id number] Raymon Angel MD Electronically signed on 04/16/2024 at 12:45:38 PM Final [facility] Work Phone: No Panel InformationOrdered By: Raymon Angel on 04-16-2024 [facility] Work Phone: OCT ANTERIOR SEGMENT CIRRUS OS (LEFT EYE)on 02-13-2024 [facility] Radiology Study observation (narrative) [facility] Basic metabolic 2000 panelon 01-18-2024 Anion gap [Moles/Vol] 9 mmol/L Normal 9-18 [facility] Comment on above: Order Comment: Speci men Type: BLOOD SPECIMEN [facility] Facility: [facility] Address: [address] [place] [address] [place] [address] Performed By: #### 2 4321-2 #### [facility] [id number] [place] [address] [place] Calcium [Mass/Vol] 9.9 mg/dL Normal 8.5-10.2 [facility] Comment on above: Order Comment: Speci men Type: BLOOD SPECIMEN Ordering Facility: [facility] Address: [address] [place] [address] Performed By: #### 2 4321-2 #### [facility] CLIA [id number] [address] [place] [address] [place] Chloride [Moles/Vol] 98 mmol/L Normal 97-105 [facility] Comment on above: Order Comment: Speci men Type: BLOOD SPECIMEN Ordering Facility: [facility] Address: [address] [place] [address] Performed By: #### 2 4321-2 #### [facility] CLIA [id number] [address] [place] [address] [place] CO2 [Moles/Vol] 32 mmol/L High 22-30 [facility] Comment on above: Order Comment: Speci men Type: BLOOD SPECIMEN Ordering Facility: [facility] Address: [address] [place] [address] Performed By: #### 2 4321-2 #### [facility] CLIA [id number] [address] [place] [address] [place] Creatinine [Mass/Vol] 5.00 mg/dL High 0.58-0.96 [facility] Comment on above: Order Comment: Speci men Type: BLOOD SPECIMEN Ordering Facility: [facility] Address: [address] [place] [address] Performed By: #### 2 4321-2 #### [facility] CLIA [id number] [address] [place] [address] [place] Creatinine and Glomerular filtration rate.predicted panel (S/P/Bld) 9 mL/min/1.73m??? Low >=60 [facility] Comment on above: Order Comment: Speci men Type: BLOOD SPECIMEN Ordering Facility: [facility] Address: [address], [place] [address] Result Comment: Mary mated Glomerular Filtration Rate (eGFR) is calculated using the 2020 CKD-EPI creatinine equation. This equation utilizes serum creatinine, sex, and age as parameters. The creatinine assay has traceable calibration to isotope dilution-mass spectrometry. Refer to KDIGO guidelines for clinical interpretation. In patients with unstable renal function, e.g. those with acute kidney injury, the eGFR may not accurately reflect actual GFR. Performed By: #### 2 4321-2 #### [facility] CLIA [id number] [address] [place] [address] [place] Glucose [Mass/Vol] 175 mg/dL High 74-99 [facility] Comment on above: Order Comment: Bethany reeves Type: BLOOD SPECIMEN Ordering Facility: [facility] Address: [address] [place] [address] Result Comment: The [place] Diabetes Association (ADA) provides guidance for cutoff values for fasting glucose and random glucose. The ADA defines fasting as no caloric intake for at least 8 hours. Fasting plasma glucose results between 100 to 125 [...] Standards of Medical Care in Diabetes 2016, [place] Diabetes Association. Diabetes Care. 2016.39(Suppl 1). Performed By: #### 2 4321-2 #### [facility] CLIA [id number] [address] [place] [address] [place] Potassium [Moles/Vol] 4.5 mmol/L Normal 3.7-5.1 [facility] Comment on above: Order Comment: Bethany reeves Type: BLOOD SPECIMEN Ordering Facility: [facility] Address: [address] [place] [address] Performed By: #### 2 4321-2 #### [facility] CLIA [id number] [place] [address] [place] Sodium [Moles/Vol] 139 mmol/L Normal 136-144 [facility] Comment on above: Order Comment: Bethany reeves Type: BLOOD SPECIMEN Ordering Facility: [facility] Address: [address] [place] [address] Performed By: #### 2 4321-2 #### [facility] CLIA [id number] [address] [address] [place] [id number] [place] Urea nitrogen [Mass/Vol] 29 mg/dL High 7- [facility] Comment on above: Order Comment: Bethany men Type: BLOOD SPECIMEN Ordering Facility: [facility] Address: [address] [place] [address] Performed By: #### 2 4321-2 #### [facility] CLIA [id number] [address] [place] [id number] [place] ECG COMPLETEon 01-18-2024 ECG COMPLETE Ventricular Rate : 8 5 BPM Atrial Rate : 85 BPM P-R Interval : 242 ms QRS Duration : 138 ms Q-T Interval : 413 ms QTC Calculation(Bazett) : 492 ms Calculated P [place] : 96 degrees Calculated R [place] : -44 degrees Calculated T [place] : 111 degrees Sinus rhythm Prolonged MD interval Right bundle branch block/LAHB LVH with IVCD and secondary repol abnrm Prolonged QT interval Abnormal ECG Confirmed by ANDRES WYNNE M.D. ([id number]) on 01/23/2024 9:30:41 PM NAME : SANDY BHATTI PID : [id number] : 1965 Gender : Female Race : ORD : [id number] Procedure Date : Jan 18 2024 11:28:03 Edit Date : Jan 23 2024 21:30:42 Diagnosis: Sinus rhythm Prolonged MD interval Right bundle branch block/LAHB LVH with IVCD and secondary repol abnrm Prolonged QT interval Abnormal ECG Confirmed by ANDRES WYNNE M.D. ([id number]) on 01/23/2024 9:30:41 PM Test Reason : Pre OP Location : 400 : FVEKG 14 Overread By : ANDRES WYNNE M.D. Edited By : ANDRES WYNNE M.D. Referred By : , Acquired by : Sara, Normal [facility] HISTORY PHYSICALon HISTORY PHYSICAL HNO ID: [id number] Author: HERBERTH GAN PA-C Service: Cardiovascular Disease Author Type: Physician Sand Tester Type: H&P Filed: 01/18/2024 12:28 Note Text: HISTORY AND PHYSICAL EXAMINATION SERVICE DATE: 01/18/2024 SERVICE TIME: 12:10 PM PROCEDUREALIST: Surgeon(s) and Role: * Felicia Avendano MD - Primary PRIMARY CARE PHYSICIAN: Maldonado Raza MD SUBJECTIVE CHIEF COMPLAINT: Swollen of dialysis arm HPI: This is a 58 year old female pmhx as listed below who presents with above complain States it started couple weeks ago and last one week it has been more and her hand gets numbas well specially during dialysis, She has been on dialysis for last six yr and her regular dialysis days are MON,WED,MON days and she has had full session yesterday . She also c / o clearance numbers getting low. PAST MEDICAL HISTORY: PAST MEDICAL HISTORY Diagnosis Date Acute kidney failure (HCC) 01/14/2018 Anxiety Arterial steal syndrome ([facility]) 12/2018 Left AVF Calculus of ureter 06/12/2007 CKD (chronic kidney disease) stage V requiring chronic dialysis ([facility]) 03/01/2018 Dr. Pendleton, nephrology. Congestive heart failure (HCC) Constipation Depression 09/04/2006 Encounter for screening for stenosis of carotid artery 03/27/2023 Less then 50% calcification bilaterally. ESRD on dialysis ([facility]) 05/16/2019 GERD (gastroesophageal reflux disease) Hemorrhoids History [...] (HCC) 06/20/2023 Steal syndrome dialysis vascular access (HCC) 05/17/2019 Thyroid disorder TIA (transient ischemic attack) 06/2019 Tubular adenoma of colon 11/15/2022 Type II or unspecified type diabetes mellitus without mention of complication, not stated as uncontrolled 09/04/1985 Ventral hernia with bowel obstruction 06/01/2023 PAST SURGICAL HISTORY: PAST SURGICAL HISTORY Procedure Laterality Date APPENDECTOMY 1992 AV ANASTOMIES OPEN;BY BASILIC VEIN WINN Right 04/20/2020 transpose basilic vein fistula, R arm AV FISTULA OR GRAFT VENOUS Left 10/04/2017 AV FISTULA OR GRAFT VENOUS Left 09/20/2018 redo, failure to mature AV FISTULA OR GRAFT VENOUS Right 04/21/2021 BOWEL RESECTION HX 2006 CHOLECYSTECTOMY 1985 Cholecystectomy COLONOSCOPY SCREENING 11/15/2022 COLOSTOMY/SKIN LEVEL CECOSTOMY 2007 [id number], reversed 2006 CREATION OF AVF, PERCUTANEOUS USING [...] RMVL TUBE OVARY 1990 Hysterectomy, [facility] FAMILY HISTORY: FAMILY HISTORY Problem Relation Age of Onset Diabetes Mother Coronary Artery Disease Mother COPD Mother dec. age 79 Cancer Mother lung cancer Colon Cancer Father at age 52 Diabetes Sister Hypertension Sister Kidney Disease Brother other (Heart condition) Brother Diabetes Brother Cancer Brother lung cancer Coronary Artery Disease Brother dec. [place] 57 y.o. No Known Problems Maternal Grandmother No Known Problems Maternal Grandfather No Known Problems Paternal Grandmother No Known Problems Paternal Grandfather SOCIAL HISTORY: Social History Tobacco Use Smoking status: Former Packs/day: 1.50 Years: 3.00 Additional pack years: 0.00 Total pack years: 4.50 Types: Cigarettes Quit date: 09/04/2005 Years since quittin.3 Smokeless tobacco: Never Tobacco comments: quit march 10 Vaping Use Vaping Use: Never used Substance Use Topics Alcohol use: No Drug use: No MEDICATIONS: Prior to Admission Medications ciprofloxacin HCl (CILOXAN) 0.3 % ophthalmic solution, Use 1 Drop in the left eye four times daily., Di (more content not included)... [facility] NURSING PROGon 01-18-2024 NURSING PROG HNO ID: [id number] Author: CHET MILAN RN Service: Nursing Author Type: Registered Nurse Type: Nursing Progress Note Filed: 01/18/2024 15:58 Note Text: 1452 Pt to recovery room s/p right arm fistulagram. Pt is awake and alert; JUAREZ. Denies complaints of pain or nausea at this time. VSS. SR noted on the monitor. Dressing to right upper arm dry and intact; no bleeding or hematoma noted. +bruit/thrill noted. Pulses present. Pt tolerating food/drink without difficulty. to bedside. updated by Dr Henderson. 1530 Pt resting comfortably; no voiced complaints noted. 1545 Written and verbal discharge instructions provided to patient and ; understanding verbalized. Pt ambulating in room with steady gait. Denies complaints of dizziness or lightheadedness. 1557 [address] home with via wheelchair. [facility] NURSING PROG HNO ID: [id number] Author: HALEY MURRAY RN Service: Nursing Author Type: Registered Nurse Type: Nursing Progress Note Filed: 01/18/2024 13:02 Note Text: PICC/VASCULAR ACCESS PROGRESS NOTE SERVICE DATE: 01/18/2024 SERVICE TIME: [address] IV pre procedure ,Pt has current fistula right arm and previous fistula left upper arm and vein harvesting left forearm .Pt has poor vascular presentation. IV placed under US left upper arm . SIGNATURE: Haley Murray RN PATIENT NAME: Sandy Bhatti DATE: January 18, 2024 TIME: 12:58 PM PAGER/CONTACT #: [facility] OPERATIVE NOon 01-18-2024 OPERATIVE NO HNO ID: [id number] Author: FELICIA AVENDANO MD Service: Vascular Surgery Author Type: Physician Type: Operative Report Filed: 01/18/2024 14:52 Note Text: OPERATIVE/PROCEDURE REPORT LOG ID: [id number] Surgery/Procedure Date: 01/18/2024 Incision/Procedure Start Time: 2:00 PM Incision Close/Procedure End Time: 2:33 PM Surgeon(s)/Proceduralist(s ) and Sand Tester(s): Surgeon(s) and Role: * Felicia Avendano MD - Primary Procedure(s): Realtime ultrasound guided access of right upper extremity graft Right upper extremity fistulogram Angioplasty of high grade subclavian-SVC stenosis with 6x40mm balloon and then 8x80mm balloon Completion fistulagram Anesthesia: Procedural Sedation Operative indications: 58 year old female who presents for right upper extremity fistulogram due to arm swelling. She has had a number of prior attempts to recanalize her high grade proximal subclavian/SVC stenosis. Procedure details: The patient was taken to the roving tester laboratory room and laid supine on the table. A huddle was performed with the surgery and nursing teams to confirm patient name, medical record number, date of , allergies, and procedure. Moderate sedation consisting of continuous ECG, pulse oximetry, cardiopulmonary monitoring, IV analgesia and sedation was performed by the nurse, overseen by the performing physician(s). A surgical time-out was performed. Using local anesthesia, ultrasound guidance, and a micropuncture system; the upper extremity arteriovenous graft was accessed with the direction of flow. The transitional sheath was used to inject contrast to perform fistulagram with DSA runs visualizing the fistula in it's entirety as well as the central veins. Angiography showed patent distal anastomosis with high grade stenosis >90% for 4cm of the subclavian-SVC junction. The sheath was up-sized to a 7-Fr sheath over a Glidewire and the wire was placed into the IVC under fluoroscopy. The Glidewire was then exchanged for a stiff amplatz wire over a KMP catheter. We began by ballooning the high grade stenosis with an 6x40 balloon which showed improvement in the flow channel. We then placed an 8x80mm balloon across the stenosis and ballooned it to nominal pressure. This showed a significantly improved flow channel that was the same size as the inflow vessel. At this point, I felt any additional ballooning may lead to rupture. Completion angiogram revealed a technically satisfactory result with significantly improved thrill throughout the entire fistula. The sheath was removed and hemostasis was achieved with figure of eight 3-0 prolene suture and pressure. The patient was transferred to the recovery area in stable condition. Pre-Op/Pre-Procedure Diagnosis: 1. SVC stenosis Post-Op/Post-Procedure Diagnosis: Same Estimated Blood Loss: 10 ml Specimens: None Implantable Devices: None Drains: None Complications: None The primary surgeon/proceduralist performed the procedure with assistance from Dr. Esposito (resident). SIGNATURE: Felicia Avendano MD PATIENT NAME: Sandy Bhatti DATE: 01/18/2024 TIME: 2:44 PM PAGER/CONTACT #: [phone] [facility] XR Chest PA and Lateralon IMPRESSION: Stable exam without acute findings. [employer] Repairer: PSCB Transcribe Date/Time: Oct 27 2023 12:45P Dictated by : NAYELI CURRIE MD This examination was interpreted and the report reviewed and electronically signed by: NAYELI CURRIE MD on Oct 27 2023 12:46PM [facility] DIVISION OF RADIOLOGY * * *Final Report* * * DATE OF EXAM: Oct 26 2023 2:11PM WOX [id number] - XR CHEST 2V FRONTAL/LAT / PROCEDURE REASON: Essential hypertension * * * * Physician Interpretation * * * * EXAMINATION: CHEST RADIOGRAPH (2 VIEW FRONTAL & LATERAL) CLINICAL HISTORY: Essential hypertension MQ: XC2_6 EXAM DATE/TIME: 10/26/2023 2:11 PM COMPARISON: Chest x-ray on 05/21/2019 RESULT: Lines, tubes, and devices: None. Lungs and pleura: No consolidation. No lung mass. No pleural effusion. No pneumothorax. Cardiomediastinal silhouette: Stable cardiomediastinal silhouette. Bones and soft tissues: There are surgical clips overlying the right upper chest and axillae. The spine shows degenerative changes. DIVISION OF RADIOLOGY Provider, [facility] - 10/27/2023 * * *Final Report* * * DATE OF EXAM: Oct 26 2023 2:11PM WOX [id number] - XR CHEST 2V FRONTAL/LAT / PROCEDURE REASON: Essential hypertension * * * * Physician Interpretation * * * * EXAMINATION: CHEST RADIOGRAPH (2 VIEW FRONTAL & LATERAL) CLINICAL HISTORY: Essential hypertension MQ: XC2_6 EXAM DATE/TIME: 10/26/2023 2:11 PM COMPARISON: Chest x-ray on 05/21/2019 RESULT: Lines, tubes, and devices: None. Lungs and pleura: No consolidation. No lung mass. No pleural effusion. No pneumothorax. Cardiomediastinal silhouette: Stable cardiomediastinal silhouette. Bones and soft tissues: There are surgical clips overlying the right upper chest and axillae. The spine shows degenerative changes. IMPRESSION IMPRESSION: Stable exam without acute findings. Miss[employer] Facilities Repairer: [email or web address] Transcribe Date/Time: Oct 27 2023 12:45P Dictated by : NAYELI CURRIE MD This examination was interpreted and the report reviewed and electronically signed by: NAYELI CURRIE MD on Oct 27 2023 12:46PM EST [facility] XR Chest PA and LateralOrder ed By: [facility] Provider on 10-27-2023 [facility] XR Chest PA and Lateralon Radiology Study observation (narrative) [facility] TRANSTHORACIC ECHO (TTE) COM PLETEon 09-18-2023 TRANSTHORACIC ECHO (TTE) [place] [address] [phone], TRANSTHORACIC ECHOCARDIOGRAM REPORT Patient Name: SANDY PRESSLEY MAGY Reading Physician: [id number] Reuben Skinner MD Study Date: 09/18/2023 Ordering Provider: [id number] ROLY FONTANA MRN/PID: [id number] Fellow: Nurse: Marilou Shabazz RN Date of /Age: 5 1965 / 58 years Soft Shoe Dancer: RUSH Mansfield RVT Gender: F Additional Staff: Height: 160.02 cm Admit Date: Weight: 65.32 kg Admission Status: Outpatient BSA: 1.68 m2 Department Location: [facility] Echo Lab Blood Pressure: 147 /63 mmHg Study Type: TRANSTHORACIC ECHO (TTE) COMPLETE Diagnosis/ICD: Cardiomyopathy in diseases classified elsewhere-I43 Indication: Encounter for other preprocedural exam CPT Codes: Echo Complete w Full Doppler-[id number] Patient History: Pertinent History: No previous echo. Study Detail: The following Echo studies were performed: 2D, M-Mode, Doppler and color flow. Definity used as a contrast agent for endocardial border definition. Total contrast used for this procedure was 2 mL via IV push. A bubble study was not performed. The patient was awake. PHYSICIAN INTERPRETATION: Left Ventricle: Left ventricular systolic function is normal, with an estimated ejection fraction of 65%. There are no regional wall motion abnormalities. The left ventricular cavity size is normal. Spectral Doppler shows an impaired relaxation pattern of left ventricular diastolic filling. Left Atrium: The left atrium is normal in size. Right Ventricle: The right ventricle is normal in size. There is reduced right ventricular systolic function. Right Atrium: The right atrium is normal in size. Aortic Valve: The aortic valve is trileaflet. There is no evidence of aortic valve regurgitation. The peak instantaneous gradient of the aortic valve is 7.6 mmHg. The mean gradient of the aortic valve is 4.0 mmHg. Mitral Valve: The mitral valve is normal in structure. There is no evidence of mitral valve regurgitation. Tricuspid Valve: The tricuspid valve is structurally normal. No evidence of tricuspid regurgitation. Pulmonic Valve: The pulmonic valve is not well visualized. There is no indication of pulmonic valve regurgitation. Pericardium: There is no pericardial effusion noted. Aorta: The aortic root is normal. CONCLUSIONS: 1. Left ventricular systolic function is normal with a 65% estimated ejection fraction. 2. Spectral Doppler shows an impaired relaxation pattern of left ventricular diastolic filling. 3. There is reduced right ventricular systolic function. 4. Asymmetric septal hypertrophy (maximal thickness of anteroseptal wall 1.8 cm). 5. No evidence of LVOT gradient/systolic anterior motion of the mitral valve. No provocative maneuvers were performed on the study. 6. Findings appear consistent with hypertrophic cardiomyopathy. Consider cardiology consult. QUANTITATIVE DATA SUMMARY: 2D MEASUREMENTS: Normal Ranges: Ao Root d: 2.30 cm (2.0-3.7cm) LAs: 3.00 cm (2.7-4.0cm) IVSd: 1.88 cm (0.6-1.1cm) LVPWd: 1.53 cm (0.6-1.1cm) LVIDd: 3.55 cm (3.9-5.9cm) LVIDs: 1.76 cm LV Mass Index: 145.0 g/m2 LV % FS 50.4 % LA VOLUME: Normal Ranges: LA Vol A4C: 16.8 ml (22+/-6mL/m2) LA Vol A2C: 30.7 ml LA Vol BP: 23.1 ml LA Vol Index A4C: 10.0ml/m2 LA Vol Index A2C: 18.2 ml/m2 LA Vol Index BP: 13.7 ml/m2 LA Area A4C: 9.4 cm2 LA Area A2C: 12.9 cm2 LA Major [place] A4C: 4.5 cm LA Major [place] A2C: 4.6 cm LA Volume Index: 17.3 ml/m2 LA Vol A4C: 16.6 ml LA Vol A2C: 29.1 ml LV SYSTOLIC FUNCTION BY 2D PLANIMETRY (MOD): Normal Ranges: EF-A4C View: 64.7 % (>=55%) EF-A2C View: 61.4 % EF-Biplane: 61.8 % LV DIASTOLIC FUNCTION: Normal Ranges: MV Peak E: 0.55 m/s (0.7-1.2 m/s) MV Peak A: 0.71 m/s (0.42-0.7 m/s) E/A Ratio: 0.77 (1.0-2.2) MV e' 0.05 m/s (>8.0) MV lateral e' 0.07 m/s MV medial e' 0.05 m/s E/e' Ratio: 10.96 (<8.0) MITRAL VALVE: Normal Ranges: MV DT: 373 msec (150-240msec) AORTIC VALVE: Normal Ranges: AoV Vmax: 1.38 m/s (<=1.7m/s) AoV Peak P.6 mmHg (<20mmHg) AoV Mean P.0 mmHg (1.7-11.5mmHg) LVOT Max Jan: 1.05 m/s (<=1.1m/s) AoV VTI: 30.60 cm (18-25cm) LVOT VTI: 21.80 cm LVOT Diameter: 1.50 cm (1.8-2.4cm) AoV Area, VTI: 1.26 cm2 (2.5-5.5cm2) AoV Area,Vmax: 1.34 cm2 (2.5-4.5cm2) AoV Dimensionless Index: 0.71 RIGHT VENTRICLE: RV Basal 1.92 cm RV Mid 2.00 cm RV Major 6.9 cm TAPSE: 13.0 mm PULMONIC VALVE: Normal Ranges: PV Accel Time: 92 msec (>120ms) PV Max Jan: 1.5 m/s (0.6-0.9m/s) PV Max P.8 mmHg [id number] Reuben Skinner MD Electronically signed on 09/18/2023 at 12:24:56 PM Final Normal [facility] US Heart TransthoracicOrdere d By: Reuben Skinner on 09-18-2023 Aortic Valve Area by Continuity of Peak Velocity 1.34 [facility] Work Phone: [phone] Aortic Valve Area by Continuity of VTI 1.26 [facility] Work Phone: [phone] AV mn grad 4.0 [facility] Work Phone: [phone] AV pk grad 7.6 [facility] Work Phone: [phone] AV pk jan 1.38 [facility] Work Phone: [phone] LA vol index A/L 13.7 [facility] Work Phone: [phone] LV A4C EF 64.7 [facility] Work Phone: [phone] LV biplane EF 62 [facility] Work Phone: [phone] LVIDd 3.55 [facility] Work Phone: [phone] LVOT diam 1.50 [facility] Work Phone: [phone] MV avg E/e' ratio 10.96 [facility] Work Phone: [phone] MV E/A ratio 0.77 [facility] Work Phone: [phone] Tricuspid annular plane systolic excursion 1.3 [facility] Work Phone: [phone] [facility] Work Phone: [phone] [place] [address] [phone], TRANSTHORACIC ECHOCARDIOGRAM REPORT Patient Name: SANDY HUAN MAGY Reading Physician: [id number] Reuben Skinner MD Study Date: 09/18/2023 Ordering Provider: [id number] ROLY FONTANA MRN/PID: [id number] Fellow: Nurse: Marilou Shabazz RN Date of /Age: 5 1965 / 58 years Soft Shoe Dancer: RUSH Mansfield RVT Gender: F Additional Staff: Height: 160.02 cm Admit Date: Weight: 65.32 kg Admission Status: Outpatient BSA: 1.68 m2 Department Location: [facility] Echo Lab Blood Pressure: 147 /63 mmHg Study Type: TRANSTHORACIC ECHO (TTE) COMPLETE Diagnosis/ICD: Cardiomyopathy in diseases classified elsewhere-I43 Indication: Encounter for other preprocedural exam CPT Codes: Echo Complete w Full Doppler-[id number] Patient History: Pertinent History: No previous echo. Study Detail: The following Echo studies were performed: 2D, M-Mode, Doppler and color flow. Definity used as a contrast agent for endocardial border definition. Total contrast used for this procedure was 2 mL via IV push. A bubble study was not performed. The patient was awake. PHYSICIAN INTERPRETATION: Left Ventricle: Left ventricular systolic function is normal, with an estimated ejection fraction of 65%. There are no regional wall motion abnormalities. The left ventricular cavity size is normal. Spectral Doppler shows an impaired relaxation pattern of left ventricular diastolic filling. Left Atrium: The left atrium is normal in size. Right Ventricle: The right ventricle is normal in size. There is reduced right ventricular systolic function. Right Atrium: The right atrium is normal in size. Aortic Valve: The aortic valve is trileaflet. There is no evidence of aortic valve regurgitation. The peak instantaneous gradient of the aortic valve is 7.6 mmHg. The mean gradient of the aortic valve is 4.0 mmHg. Mitral Valve: The mitral valve is normal in structure. There is no evidence of mitral valve regurgitation. Tricuspid Valve: The tricuspid valve is structurally normal. No evidence of tricuspid regurgitation. Pulmonic Valve: The pulmonic valve is not well visualized. There is no indication of pulmonic valve regurgitation. Pericardium: There is no pericardial effusion noted. Aorta: The aortic root is normal. CONCLUSIONS: 1. Left ventricular systolic function is normal with a 65% estimated ejection fraction. 2. Spectral Doppler shows an impaired relaxation pattern of left ventricular diastolic filling. 3. There is reduced right ventricular systolic function. 4. Asymmetric septal hypertrophy (maximal thickness of anteroseptal wall 1.8 cm). 5. No evidence of LVOT gradient/systolic anterior motion of the mitral valve. No provocative maneuvers were performed on the study. 6. Findings appear consistent with hypertrophic cardiomyopathy. Consider cardiology consult. QUANTITATIVE DATA SUMMARY: 2D MEASUREMENTS: Normal Ranges: Ao Root d: 2.30 cm (2.0-3.7cm) LAs: 3.00 cm (2.7-4.0cm) IVSd: 1.88 cm (0.6-1.1cm) LVPWd: 1.53 cm (0.6-1.1cm) LVIDd: 3.55 cm (3.9-5.9cm) LVIDs: 1.76 cm LV Mass Index: 145.0 g/m2 LV % FS 50.4 % LA VOLUME: Normal Ranges: LA Vol A4C: 16.8 ml (22+/-6mL/m2) LA Vol A2C: 30.7 ml LA Vol BP: 23.1 ml LA Vol Index A4C: 10.0ml/m2 LA Vol Index A2C: 18.2 ml/m2 LA Vol Index BP: 13.7 ml/m2 LA Area A4C: 9.4 cm2 LA Area A2C: 12.9 cm2 LA Major [place] A4C: 4.5 cm LA Major [place] A2C: 4.6 cm LA Volume Index: 17.3 ml/m2 LA Vol A4C: 16.6 ml LA Vol A2C: 29.1 ml LV SYSTOLIC FUNCTION BY 2D PLANIMETRY (MOD): Normal Ranges: EF-A4C View: 64.7 % (>=55%) EF-A2C View: 61.4 % EF-Biplane: 61.8 % LV DIASTOLIC FUNCTION: Normal Ranges: MV Peak E: 0.55 m/s (0.7-1.2 m/s) MV Peak A: 0.71 m/s (0.42-0.7 m/s) E/A Ratio: 0.77 (1.0-2.2) MV e' 0.05 m/s (>8.0) MV lateral e' 0.07 m/s MV medial e' 0.05 m/s E/e' Ratio: 10.96 (<8.0) MITRAL VALVE: Normal Ranges: MV DT: 373 msec (150-240msec) AORTIC VALVE: Normal Ranges: AoV Vmax: 1.38 m/s (<=1.7m/s) AoV Peak P.6 mmHg (<20mmHg) AoV Mean P.0 mmHg (1.7-11.5mmHg) LVOT Max Jan: 1.05 m/s (<=1.1m/s) (more content not included)... Reuben Smith MD - 09/18/2023 [place] [address] [phone], TRANSTHORACIC ECHOCARDIOGRAM REPORT Patient Name: SANDY BHATTI Reading Physician: [id number] Reuben Skinner MD Study Date: 09/18/2023 Ordering Provider: [id number] ROLY FONTANA MRN/PID: [id number] Fellow: Nurse: Marilou Shabazz RN Date of /Age: 5 1965 / 58 years Soft Shoe Dancer: RUSH Mansfield RVT Gender: F Additional Staff: Height: 160.02 cm Admit Date: Weight: 65.32 kg Admission Status: Outpatient BSA: 1.68 m2 Department Location: [facility] Echo Lab Blood Pressure: 147 /63 mmHg Study Type: TRANSTHORACIC ECHO (TTE) COMPLETE Diagnosis/ICD: Cardiomyopathy in diseases classified elsewhere-I43 Indication: Encounter for other preprocedural exam CPT Codes: Echo Complete w Full Doppler-[id number] Patient History: Pertinent History: No previous echo. Study Detail: The following Echo studies were performed: 2D, M-Mode, Doppler and color flow. Definity used as a contrast agent for endocardial border definition. Total contrast used for this procedure was 2 mL via IV push. A bubble study was not performed. The patient was awake. PHYSICIAN INTERPRETATION: Left Ventricle: Left ventricular systolic function is normal, with an estimated ejection fraction of 65%. There are no regional wall motion abnormalities. The left ventricular cavity size is normal. Spectral Doppler shows an impaired relaxation pattern of left ventricular diastolic filling. Left Atrium: The left atrium is normal in size. Right Ventricle: The right ventricle is normal in size. There is reduced right ventricular systolic function. Right Atrium: The right atrium is normal in size. Aortic Valve: The aortic valve is trileaflet. There is no evidence of aortic valve regurgitation. The peak instantaneous gradient of the aortic valve is 7.6 mmHg. The mean gradient of the aortic valve is 4.0 mmHg. Mitral Valve: The mitral valve is normal in structure. There is no evidence of mitral valve regurgitation. Tricuspid Valve: The tricuspid valve is structurally normal. No evidence of tricuspid regurgitation. Pulmonic Valve: The pulmonic valve is not well visualized. There is no indication of pulmonic valve regurgitation. Pericardium: There is no pericardial effusion noted. Aorta: The aortic root is normal. CONCLUSIONS: 1. Left ventricular systolic function is normal with a 65% estimated ejection fraction. 2. Spectral Doppler shows an impaired relaxation pattern of left ventricular diastolic filling. 3. There is reduced right ventricular systolic function. 4. Asymmetric septal hypertrophy (maximal thickness of anteroseptal wall 1.8 cm). 5. No evidence of LVOT gradient/systolic anterior motion of the mitral valve. No provocative maneuvers were performed on the study. 6. Findings appear consistent with hypertrophic cardiomyopathy. Consider cardiology consult. QUANTITATIVE DATA SUMMARY: 2D MEASUREMENTS: Normal Ranges: Ao Root d: 2.30 cm (2.0-3.7cm) LAs: 3.00 cm (2.7-4.0cm) IVSd: 1.88 cm (0.6-1.1cm) LVPWd: 1.53 cm (0.6-1.1cm) LVIDd: 3.55 cm (3.9-5.9cm) LVIDs: 1.76 cm LV Mass Index: 145.0 g/m2 LV % FS 50.4 % LA VOLUME: Normal Ranges: LA Vol A4C: 16.8 ml (22+/-6mL/m2) LA Vol A2C: 30.7 ml LA Vol BP: 23.1 ml LA Vol Index A4C: 10.0ml/m2 LA Vol Index A2C: 18.2 ml/m2 LA Vol Index BP: 13.7 ml/m2 LA Area A4C: 9.4 cm2 LA Area A2C: 12.9 cm2 LA Major [place] A4C: 4.5 cm LA Major [place] A2C: 4.6 cm LA Volume Index: 17.3 ml/m2 LA Vol A4C: 16.6 ml LA Vol A2C: 29.1 ml LV SYSTOLIC FUNCTION BY 2D PLANIMETRY (MOD): Normal Ranges: EF-A4C View: 64.7 % (>=55%) EF-A2C View: 61.4 % EF-Biplane: 61.8 % LV DIASTOLIC FUNCTION: Normal Ranges: MV Peak E: 0.55 m/s (0.7-1.2 m/s) MV Peak A: 0.71 m/s (0.42-0.7 m/s) E/A Ratio: 0.77 (1.0-2.2) MV e' 0.05 m/s (>8.0) MV lateral e' 0.07 m/s MV medial e' 0.05 m/s E/e' Ratio: 10.96 (<8.0) MITRAL VALVE: Normal Ranges: MV DT: 373 msec (150-240msec) AORTIC VALVE: Normal Ranges: AoV Vmax: 1.38 m/s (<=1.7m/s) AoV Peak P.6 mmHg (<20mmHg) AoV Mean P.0 mmHg (1.7-11.5mmHg) LVOT Max Jan: 1.05 m/s (<=1.1m/s) AoV VTI: 30.60 cm (18-25cm) LVOT VTI: 21.80 cm LVOT Diameter: 1.50 cm (1.8-2.4cm) AoV Area, VTI: 1.26 cm2 (2.5-5.5cm2) AoV Area,Vmax: 1.34 cm2 (2.5-4.5cm2) AoV Dimensionless Index: 0.71 RIGHT VENTRICLE: RV Basal 1.92 cm RV Mid 2.00 cm RV Major 6.9 cm TAPSE: 13.0 mm PULMONIC VALVE: Normal Ranges: PV Accel Time: 92 msec (>120ms) PV Max Jan: 1.5 m/s (0.6-0.9m/s) PV Max P.8 mmHg [id number] Reuben Skinner MD Electronically signed on 09/18/2023 at 12:24:56 PM Final [facility] Work Phone: BRIEF OP NOTon 07-18-2023 BRIEF OP NOT HNO ID: [id number] Author: Olman Blake MD Service: Vascular Surgery Author Type: Resident Type: Brief Op Note Filed: 07/18/2023 12:03 PM Note Text: BRIEF OPERATIVE / PROCEDURE NOTE LOG ID: [id number] Surgery/Procedure Date: 07/18/2023 Incision/Procedure Start Time: 11:26 AM Incision Close/Procedure End Time: 11:42 AM Surgeon(s)/Proceduralist(s ) and Sand Tester(s): Surgeon(s) and Role: * Raul Duque MD - Primary * Olman Blake MD - Resident - Assisting No Additional Staff Procedure(s): PERC THROMBECTOMY/INFUSION FOR THROMBOLYSIS AV FISTULA,FLUORO GUIDED,INCLUSIVE OF RAD NIDIA: 10840 (CPT?) Left brachio-brachial arteriovenous graft angiogram, percutaneous transluminal venoplasty ROBERTA Angio: Access: RUE AVG Closure: digital pressure Contrast: 18cc Fluorotime: 2.0 min, AK 21.8, DAP 387 Anesthesia: Procedural Sedation ASA Class: ASA Class:: IIIE Findings: good arterial inflow; high-grade central subclavian/innominate venous stenosis, dilated with [id number] [employer] [place] Edger balloon, with improvement in vein caliber and flow through AVG Pulses: RUE: Palpable +1 radial pulse Medications: Antiplatelet: ASA 81 mg Anticoagulation: No Statin: atorvastatin 40mg Beta Chris: metoprolol tartrate 25mg BID No current facility-administered medications on file prior to encounter. Current Outpatient Medications on File Prior to Encounter Medication Sig metoprolol tartrate, short acting, (LOPRESSOR) 25 mg tablet Take 1 tablet by mouth every 12 hours. insulin lispro (HUMALOG KWIKPEN INSULIN) 100 unit/mL Inject 8 Units subcutaneously three times a day before meals. Add 1 unit for each 50 mg/dl above 150 insulin detemir U-100 (LEVEMIR FLEXTOUCH U-100 INSULIN) 100 unit/mL (3 mL) injection pen Inject 48 Units subcutaneously daily at bedtime. amLODIPine (NORVASC) 5 mg tablet Take 1 tablet by mouth once daily. cloNIDine HCl (CATAPRES) 0.3 mg tablet Take 1 tablet by mouth daily at bedtime. atorvastatin (LIPITOR) 40 mg tablet Take 1 tablet by mouth daily at bedtime. insulin needles, DISPOSABLE, (PEN NEEDLE) 31 gauge x 5/16 Use one needle per dose four times per day. SUMAtriptan (IMITREX) 50 mg tablet Take one tablet by mouth at onset of migraine. May repeat in 2 hours if ineffective ferric citrate 210 mg iron tab Take 1 tablet by mouth once daily. docusate sodium (COLACE) 100 mg capsule Take 1 capsule by mouth twice daily as needed for Constipation. nitroglycerin sublingual (NITROQUICK) 0.4 mg SL tablet Dissolve 0.4 mg under the tongue every 5 minutes as needed. NEPHRO-PETEY 0.8 mg tab Take 1 tablet by mouth once daily. aspirin, enteric coated (ASPIRIN, ENTERIC COATED) 81 mg EC tablet Take 1 tablet by mouth once daily. lisinopril (ZESTRIL) 40 mg tablet Take 1 tablet by mouth once daily. blood sugar diagnostic (BLOOD GLUCOSE TEST) test strip Test blood sugar(s) 3 times daily. Dx: Type 2 DM - Uncontrolled E11.65 Insulin: Yes Blood-Glucose Meter (BLOOD GLUCOSE MONITORING) monitoring kit 1 Each three times daily. E11.65. On insulin. Post-operative Plan of Care: -okay for diet and discharge home -fistulograms PRN for recurrent high venous pressures during dialysis Estimated Blood Loss: 5cc Specimens: * No specimens in log * Implants: * No implants in log * Complications: None Pre-Op/Pre-Procedure Diagnosis: attention to AVG Post-Op/Post-Procedure Diagnosis: Same as Preop SIGNATURE: Olman Blake MD PATIENT NAME: Sandy Bhatti DATE: July 18, 2023 TIME: 11:55 AM PAGER/CONTACT #: [phone] Normal [facility] Basic metabolic 2000 panelon 07-18-2023 Anion gap [Moles/Vol] 11 mmol/L Normal 9-18 [facility] Comment on above: Order Comment: Speci men Type: BLOOD SPECIMEN Ordering Facility: [facility] Address: [place] [id number] Performed By: #### 2 4321-2 #### [facility] CLIA [id number] [address] [place] [address] [place] Calcium [Mass/Vol] 9.6 mg/dL Normal 8.5-10.2 [facility] Comment on above: Order Comment: Speci men Type: BLOOD SPECIMEN Ordering Facility: [facility] Address: [address] [place] [address] Performed By: #### 2 4321-2 #### [facility] CLIA [id number] [address] [place] [address] [place] Chloride [Moles/Vol] 99 mmol/L Normal 97-105 [facility] Comment on above: Order Comment: Speci men Type: BLOOD SPECIMEN Ordering Facility: [facility] Address: [address] [place] [address] Performed By: #### 2 4321-2 #### [facility] CLIA [id number] [address] [place] [address] [place] CO2 [Moles/Vol] 30 mmol/L Normal 22-30 [facility] Comment on above: Order Comment: Speci men Type: BLOOD SPECIMEN Ordering Facility: [facility] Address: [address] [place] [address] Performed By: #### 2 4321-2 #### [facility] CLIA [id number] [address] [place] [address] [place] Creatinine [Mass/Vol] 5.68 mg/dL High 0.58-0.96 [facility] Comment on above: Order Comment: Speci men Type: BLOOD SPECIMEN Ordering Facility: [facility] Address: [address] [place] [address] Performed By: #### 2 4321-2 #### [facility] CLIA [id number] [address] [place] [address] [place] Creatinine and Glomerular filtration rate.predicted panel (S/P/Bld) 8 mL/min/1.73m??? Low >=60 [facility] Comment on above: Order Comment: Speci men Type: BLOOD SPECIMEN Ordering Facility: [facility] Address: [address] [place] [address] Result Comment: Mary mated Glomerular Filtration Rate (eGFR) is calculated using the 2020 CKD-EPI creatinine equation. This equation utilizes serum creatinine, sex, and age as parameters. The creatinine assay has traceable calibration to isotope dilution-mass spectrometry. Refer to KDIGO guidelines for clinical interpretation. In patients with unstable renal function, e.g. those with acute kidney injury, the eGFR may not accurately reflect actual GFR. Performed By: #### 2 4321-2 #### [facility] CLIA [id number] [place] [address] [place] Glucose [Mass/Vol] 236 mg/dL High 74-99 [facility] Comment on above: Order Comment: Bethany reeves Type: BLOOD SPECIMEN Ordering Facility: [facility] Address: [address] [place] [address] Result Comment: The [place] Diabetes Association (ADA) provides guidance for cutoff values for fasting glucose and random glucose. The ADA defines fasting as no caloric intake for at least 8 hours. Fasting plasma glucose results between 100 to 125 [...] Standards of Medical Care in Diabetes 2016, [place] Diabetes Association. Diabetes Care. 2016.39(Suppl 1). Performed By: #### 2 4321-2 #### [facility] CLIA [id number] [address] [place] [address] [place] Potassium [Moles/Vol] 4.9 mmol/L Normal 3.7-5.1 [facility] Comment on above: Order Comment: Bethany reeves Type: BLOOD SPECIMEN Ordering Facility: [facility] Address: [address] [place] [address] Performed By: #### 2 4321-2 #### [facility] CLIA [id number] [place] [address] [place] Sodium [Moles/Vol] 140 mmol/L Normal 136-144 [facility] Comment on above: Order Comment: Bethany reeves Type: BLOOD SPECIMEN Ordering Facility: [facility] Address: [address] [place] [address] Performed By: #### 2 4321-2 #### [facility] CLIA [id number] [address] [place] [address] [place] Urea nitrogen [Mass/Vol] 31 mg/dL High 7- [facility] Comment on above: Order Comment: Speci men Type: BLOOD SPECIMEN Ordering Facility: [facility] Address: [place] [address] Performed By: #### 2 4321-2 #### [facility] CLIA [id number] [address] [place] [address] [place] ECG COMPLETEon 07-18-2023 ECG COMPLETE Ventricular Rate : 6 5 BPM Atrial Rate : 65 BPM P-R Interval : 171 ms QRS Duration : 137 ms Q-T Interval : 479 ms QTC Calculation(Bazett) : 499 ms Calculated P [place] : -2 degrees Calculated R [place] : -39 degrees Calculated T [place] : 135 degrees Sinus rhythm Multiple ventricular premature complexes Right bundle branch block LVH with IVCD and secondary repol abnrm Lateral infarct, old Abnormal ECG Confirmed by HOWARD LAY DO ([id number]) on 07/26/2023 3:30:02 PM NAME : SANDY BHATTI PID : [id number] : 1965 Gender : Female Race : ORD : [id number] Procedure Date : Jul 18 2023 10:34:43 Edit Date : Jul 26 2023 15:30:05 Diagnosis: Sinus rhythm Multiple ventricular premature complexes Right bundle branch block LVH with IVCD and secondary repol abnrm Lateral infarct, old Abnormal ECG Confirmed by HOWARD LAY DO ([id number]) on 07/26/2023 3:30:02 PM Test Reason : Pre OP Location : 400 : [facility] 25 Overread By : HOWARD LAY DO Edited By : HOWARD LAY DO Referred By : , Acquired by : Juice KOROMA [facility] HISTORY PHYSICALon HISTORY PHYSICAL HNO ID: [id number] Author: Herberth Gan PA-C Service: Cardiovascular Disease Author Type: Physician Sand Tester Type: HANDP Filed: 07/18/2023 10:51 AM Note Text: UPDATED PROCEDURAL SEDATION HISTORY AND PHYSICAL EXAMINATION SERVICE DATE: 07/18/2023 SERVICE TIME: 10:39 AM PROCEDUREALIST: Surgeon(s) and Role: * Raul Duque MD - Primary PHYSICAL EXAM MUST BE COMPLETED ON ADMISSION The History and Physical (completed in the past 30 days) has been reviewed and the patient has been examined. The contents accurately reflect the patient's condition with the following additions or revisions since the HANDP was completed. This HANDP can be found in the Electronic Medical Record.06/29/23 ASA Class: ASA Class:: Patient with severe systemic disease - Emergency Procedure No data found. AIRWAY: Airway Visualization of Uvula: Yes Mouth opening greater than 2 fingerbreadths: Yes Neck Full Range of Motion: Yes LUNGS: Lungs clear to auscultation, Good diaphragmatic excursion CARDIAC: Normal S1 - S2, no murmur CAROTIDS: With right carotid bruit History of TIA: No History of AK: No Diabetes: Yes History of Bleeding Issues: No SEDATION GOAL: Moderate DATA: Diagnostic tests reviewed for today's visit: Most recent EKG Most recent labs POC INR: CBC: Recent Labs 06/21/23 0642 WBC 7.11 RBC 3.53* HB 11.2* HCT 36.6 PLT 290 MCV 103.7* MCH 31.7 MPV 9.1 Coags: No results for input(s): PT, INR, APTT in the last 720 hours. BMP: Recent Labs 06/21/23 0642 NA 140 K 4.5 CHLOR 98 CO2 33* BUN 24* CREAT 5.22* GLUC 42* Provisional Diagnosis/Treatment Plan: A.V graft angiogram Assessment: ESRD, H.D, Swelling of dialysis arm, D.M, H / O VT, EKG changes is not new on compression with 06/20/23 EKG on hospital admission Plan: Ordered Pre-op LABS and EKG reviewed and results evaluated. The medical history was reviewed and updated. Pre-procedural IV antibiotic was ordered Proceed with procedure I spent a total of 25 minutes on the date of the service which included preparing to see the patient, [id number] patient care, completing clinical documentation, obtaining and/or reviewing separately obtained history, performing a medically appropriate examination, and ordering medications, tests, or procedures. SIGNATURE: Herberth Gan PA-C PATIENT NAME: Sandy Bhatti DATE: July 18, 2023 TIME: 10:39 AM PAGER: Juice [facility] NURSING PROGon 07-18-2023 NURSING PROG HNO ID: [id number] Author: Day Jefferson RN Service: Nursing Author Type: Registered Nurse Type: Nursing Progress Note Filed: 07/18/2023 12:54 PM Note Text: Nursing Progress Note Topic of Note: Daily Note PATIENT NAME: Sandy Bhatti Patient Location: JIGGER OPERATOR POOL/FV JIGGER OPERATOR POOL Room: JIGGER OPERATOR POOL ( INVASIVE CARDIOLOGY) S/p fistulogram / angioplasty via right arm. Palpable radial pulse. + thrill. Dressing dry intact. Pt awake alert oriented. Given po diet. Will review orders. 1250: pt took po diet. Right arm dressing dry intact. + thrill. + radial pulse. Discharge instruction and f/u. Pt voices understanding of meds diet and activity. Will d/c home. This note was completed by: Ady [facility] NURSING PROG HNO ID: [id number] Author: Day Jefferson RN Service: Nursing Author Type: Registered Nurse Type: Nursing Progress Note Filed: 07/18/2023 11:05 AM Note Text: Nursing Progress Note Topic of Note: Daily Note PATIENT NAME: Sandy Bhatti Patient Location: JIGGER OPERATOR POOL/ JIGGER OPERATOR POOL Room: JIGGER OPERATOR POOL ( INVASIVE CARDIOLOGY) Pre op done. BMP pending. Dr. Duque aware. At bedside for consent. This note was completed by: Day Jefferson [facility] OPERATIVE NOon 07-18-2023 OPERATIVE NO HNO ID: [id number] Author: Raul Duque MD Service: Vascular Surgery Author Type: Physician Type: Operative Report Filed: 07/19/2023 12:32 PM Note Text: OPERATIVE/PROCEDURE REPORT LOG ID: [id number] Surgery/Procedure Date: 07/18/2023 Incision/Procedure Start Time:11:26 AM Incision Close/Procedure End Time: 11:42 AM Surgeon(s)/Proceduralist(s ) and Sand Tester(s): Surgeon(s) and Role: * Raul Duque MD - Primary * Olman Blake MD - Resident - Assisting No Additional Staff Procedure(s): Fistulogram left upper extremity Angioplasty of left innominate vein and SVC with 12mm balloon Anesthesia: Procedural Sedation Operative indications: 58 year old female who presents for fistulogram due to high venous pressures. Procedure details: The patient was taken to the roving tester laboratory and laid supine on the table. After time-in and under continuous oxygen and monitoring, IV analgesia and sedation were given. Using local anesthesia, ultrasound guidance, and a micropuncture system, the upper extremity av graft was accessed antegrade. The transitional sheath was used to inject contrast to perform fistulagram with DSA runs visualizing the fistula in it's entirety as well as the central veins. 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 The sheath was up-sized to a 7 sinhala sheath. The stenosis was ballooned with a/an 12 x 60 balloon. There was <30% residual stenosis. The inflow was imaged and revealed no stenosis. Completion angiogram revealed a technically satisfactory result with significantly improved thrill throughout the entire fistula, no pulsatility. The sheath was removed and hemostasis was achieved with suture/pressure. The Patient was transferred to the recovery area in stable condition. Pre-Op/Pre-Procedure Diagnosis: dialysis access malfunction Post-Op/Post-Procedure Diagnosis: same Estimated Blood Loss: 0 ml Specimens: None Implantable Devices: none Drains: None Complications: None The primary surgeon/proceduralist performed the procedure with assistance. SIGNATURE: Malcolm Duque MD PATIENT NAME: Sandy Bhatti DATE: 07/18/2023 TIME: 12:31 PM PAGER/CONTACT #: [phone] [facility] 06-21-2023 [facility] HNO ID: [id number] Author: Triston Johnson CNMT Service: ? Author Type: Clockmaker Type: Allied Health Filed: 06/21/2023 11:14 AM Note Text: RADIOLOGY SERVICE PROGRESS NOTE SERVICE DATE: 06/21/2023 SERVICE TIME: 11:13 AM PATIENT IDENTITY VERIFICATION COMPLETED USING TWO (2) STANDARD IDENTIFIERS: Name and Date of confirmed by patient verbally FALL SCREENING: Has the patient had 2 falls in the last year or 1 fall with injury or currently using an Ambulatory Assistive Device (Walker, Cane, Wheelchair, Crutches, etc.)? Inpatient: Screened on floor PATIENT GENDER DATA: .female : No ALLERGIES: Reviewed and unchanged MEDICATIONS REVIEWED: Yes PATIENT RELEVANT IMPLANT DATA REVIEWED: Not Applicable CREATININE: Creatinine Date Value Ref Range Status 06/21/2023 5.22 (H) 0.58 - 0.96 mg/dL Final 06/20/2023 6.17 (H) 0.58 - 0.96 mg/dL Final 06/20/2023 5.77 (H) 0.58 - 0.96 mg/dL Final Estimated Glomerular Filtration Rate Date Value Ref Range Status 06/21/2023 9 (L) >=60 mL/min/1.73m? Final Comment: Estimated Glomerular Filtration Rate (eGFR) is calculated using the 2020 CKD-EPI creatinine equation. This equation utilizes serum creatinine, sex, and age as parameters. The creatinine assay has traceable calibration to isotope dilution-mass spectrometry. Refer to KDIGO guidelines for clinical interpretation. In patients with unstable renal function, e.g. those with acute kidney injury, the eGFR may not accurately reflect actual GFR. eGFR- Date Value Ref Range Status 04/23/2021 12 Final 04/23/2021 12 Final P.O.C.T. RESULTS: N/A June 21, [address] PERFORMED: No IV SITE: Inpatient - refer to LDA documentation POST EXAM PIV STATUS: Inpatient see LDA documentation PROCEDURE TYPE: NM Stress: 12.6 mCi [id number] was administered IV for Rest Imaging at 0946 by María. 34.2 mCi [id number] was administered IV for Stress Imaging at 1112 by G.Daniela. ADMINISTRATION TIME: 0946/1112 PATIENT DISCHARGED TO: Patient taken to IP transport area for return to RNF/ICU/ED. A Diagnostic radioactive procedure has taken place, with no further precautions necessary other than routine body substance precautions. More information regarding radiation safety can be found using this link: [email or web address] r%20Medicine%20Procedures. pdf SIGNATURE: RUBIO Armstrong PATIENT NAME: Sandy Bhatti DATE: June 21, 2023 TIME: 11:13 AM PAGER/CONTACT #: Normal [facility] Basic metabolic 2000 panelon 06-21-2023 Anion gap [Moles/Vol] 9 mmol/L Normal - [facility] Comment on above: Order Comment: Speci men Type: BLOOD SPECIMEN Ordering Facility: [facility] Address: [address] [place] [address] Performed By: #### H STNT, , #### [facility] CLIA [id number] [address] [place] [address] [place] Calcium [Mass/Vol] 9.5 mg/dL Normal 8.5-10.2 [facility] Comment on above: Order Comment: Speci men Type: BLOOD SPECIMEN Ordering Facility: [facility] Address: [address] [place] [address] Performed By: #### H STNT, , #### [facility] CLIA [id number] [address] [place] [address] [place] Chloride [Moles/Vol] 98 mmol/L Normal 97-105 [facility] Comment on above: Order Comment: Speci men Type: BLOOD SPECIMEN Ordering Facility: [facility] Address: [address] [place] [address] Performed By: #### H STNT, , #### [facility] CLIA [id number] [address] [place] [address] [place] CO2 [Moles/Vol] 33 mmol/L High 22-30 [facility] Comment on above: Order Comment: Speci men Type: BLOOD SPECIMEN Ordering Facility: [facility] Address: [address] [place] [address] Performed By: #### H STNT, , #### [facility] CLIA [id number] [address] [place] [address] [place] Creatinine [Mass/Vol] 5.22 mg/dL High 0.58-0.96 [facility] Comment on above: Order Comment: Speci men Type: BLOOD SPECIMEN Ordering Facility: [facility] Address: [address] [place] [address] Performed By: #### H STNT, , #### [facility] CLIA [id number] [address] [place] [address] [place] Creatinine and Glomerular filtration rate.predicted panel (S/P/Bld) 9 mL/min/1.73m??? Low >=60 [facility] Comment on above: Order Comment: Bethany reeves Type: BLOOD SPECIMEN Ordering Facility: [facility] Address: [address] [place] [address] Result Comment: Mary mated Glomerular Filtration Rate (eGFR) is calculated using the 2020 CKD-EPI creatinine equation. This equation utilizes serum creatinine, sex, and age as parameters. The creatinine assay has traceable calibration to isotope dilution-mass spectrometry. Refer to KDIGO guidelines for clinical interpretation. In patients with unstable renal function, e.g. those with acute kidney injury, the eGFR may not accurately reflect actual GFR. Performed By: #### H STNT, 02784-7, #### [facility] CLIA [id number] [address] [place] [address] [place] Glucose [Mass/Vol] 42 mg/dL Low 74-99 [facility] Comment on above: Order Comment: Bethany reeves Type: BLOOD SPECIMEN Ordering Facility: [facility] Address: [address] [place] [address] Result Comment: The [place] Diabetes Association (ADA) provides guidance for cutoff values for fasting glucose and random glucose. The ADA defines fasting as no caloric intake for at least 8 hours. Fasting plasma glucose results between 100 to 125 [...] Standards of Medical Care in Diabetes 2016, [place] Diabetes Association. Diabetes Care. 2016.39(Suppl 1). Performed By: #### H STNT, 11432-5, #### [facility] CLIA [id number] [address] [place] [address] [place] Potassium [Moles/Vol] 4.5 mmol/L Normal 3.7-5.1 [facility] Comment on above: Order Comment: Speci men Type: BLOOD SPECIMEN Ordering Facility: [facility] Address: [address] [place] [address] Performed By: #### H STNT, , #### [facility] CLIA [id number] [address] [place] [address] [place] Sodium [Moles/Vol] 140 mmol/L Normal 136-144 [facility] Comment on above: Order Comment: Speci men Type: BLOOD SPECIMEN Ordering Facility: [facility] Address: [address] [place] [address] Performed By: #### H STNT, , #### [facility] CLIA [id number] [place] [address] [place] Urea nitrogen [Mass/Vol] 24 mg/dL High 7-21 [facility] Comment on above: Order Comment: Speci men Type: BLOOD SPECIMEN Ordering Facility: [facility] Address: [address] [place] [address] Performed By: #### H STNT, , #### [facility] CLIA [id number] [address] [place] [address] [place] CBC panel Auto (Bld)on 06-21 Erythrocyte distribution width (RBC) [Ratio] 14.8 % Normal 11.5-15.0 [facility] Comment on above: Order Comment: Speci men Type: BLOOD SPECIMENOrdering Facility: [facility] Address: [address] [place] [address] Performed By: #### 5 8410-2 ####[facility] [id number] [address] [place] Hematocrit (Bld) [Volume fraction] 36.6 % Normal 36.0-46.0 [facility] Comment on above: Order Comment: Speci men Type: BLOOD SPECIMENOrdering Facility: [facility] Address: [address] [place] [address] Performed By: #### 5 8410-2 ####[facility] [id number] [address] [place] Hemoglobin (Bld) [Mass/Vol] 11.2 g/dL Low 11.5-15.5 [facility] Comment on above: Order Comment: Speci men Type: BLOOD SPECIMENOrdering Facility: [facility] Address: [address] [place] [address] Performed By: #### 5 8410-2 ####[facility] [id number] [address] MCH (RBC) [Entitic mass] 31.7 pg Normal 26.0-34.0 [facility] Comment on above: Order Comment: Speci men Type: BLOOD SPECIMENOrdering Facility: [facility] Address: [address] [place] [address] Performed By: #### 5 8410-2 ####[facility] [id number] [address] [place] MCHC (RBC) [Mass/Vol] 30.6 g/dL Normal 30.5-36.0 [facility] Comment on above: Order Comment: Speci men Type: BLOOD SPECIMENOrdering Facility: [facility] Address: [address] [place] [address] Performed By: #### 5 8410-2 ####[facility] [id number] [address] [place] MCV (RBC) [Entitic vol] 103.7 fL High 80.0-100.0 [facility] Comment on above: Order Comment: Speci men Type: BLOOD SPECIMENOrdering Facility: [facility] Address: [address] [place] [address] Performed By: #### 5 8410-2 ####[facility] [id number] [address] [place] [facility] Nucleated RBC (Bld) [#/Vol] 10*3/uL Normal <0.01 [facility] Comment on above: Order Comment: Speci men Type: BLOOD SPECIMENOrdering Facility: [facility] Address: [address] [place] [address] Performed By: #### 5 8410-2 ####[facility] [id number] [place] [id number] [place] Platelet mean volume (Bld) [Entitic vol] 9.1 fL Normal 9.0-12.7 [facility] Comment on above: Order Comment: Speci men Type: BLOOD SPECIMENOrdering Facility: [facility] Address: [address] [place] [address] Performed By: #### 5 8410-2 ####[facility] [id number] [place] [address] [place] Platelets (Bld) [#/Vol] 290 10*3/uL Normal 150-400 [facility] Comment on above: Order Comment: Speci men Type: BLOOD SPECIMENOrdering Facility: [facility] Address: [address] [place] [address] Performed By: #### 5 8410-2 ####[facility] [id number] [place] [address] [place] RBC (Bld) [#/Vol] 3.53 10*6/uL Low 3.90-5.20 [facility] Comment on above: Order Comment: Speci men Type: BLOOD SPECIMENOrdering Facility: [facility] Address: [address] [place] [address] Performed By: #### 5 8410-2 ####[facility] [id number] [place] [address] [place] WBC (Bld) [#/Vol] 7.11 10*3/uL Normal 3.70-11.00 [facility] Comment on above: Order Comment: Speci men Type: BLOOD SPECIMENOrdering Facility: [facility] Address: [address] [place] [address] Performed By: #### 5 8410-2 ####[facility] [id number] [place] [id number] [place] CNDSon 06-21-2023 CNDS HNO ID: [id number] Author: Milagro Bruce MD Service: Hospital Medicine Author Type: Physician Type: Discharge Summary Filed: 06/21/2023 5:04 PM Note Text: DISCHARGE SUMMARY PATIENT NAME: Sandy Bhatti ADMISSION DATE: 06/20/2023 DISCHARGE DATE: 06/21/2023 ATTENDING PHYSICIAN: Milagro Bruce MD Code Status: Not on file PCP: Maldonado Raza MD Highest Readmission Risk Score: 14 The 30 day readmissions risk score is derived from an internally validated risk model which evaluates patient level characteristics, utilization history, medication orders and lab results up until the day of discharge. Patients with a score of 40 or above are considered highest risk for readmission. Specific patient level drivers will be listed at the bottom of the summary. TRANSITIONS OF CARE CRITICAL ISSUES: LARIOS MEDICATION CHANGES: Metoprolol 25 mg BID added LAB MONITORING NEEDED: Per PCP IMAGING FOLLOW-UP: Echocardiogram to ordered by Dr. Barros's LABS AND PROCEDURES PENDING AT DISCHARGE: No FOLLOW UP: With PCP, cardiology, and vascular surgery REASON FOR HOSPITALIZATION: Abnormal EKG and elevated potassium PRINCIPAL DIAGNOSIS: Abnormal EKG Hyperkalemia resolved SECONDARY DIAGNOSIS: Principal Problem: ESRD on dialysis (HCC) (POA: Yes) Active Problems: Controlled type 2 diabetes mellitus without complication, with long-term current use of insulin (HCC) (POA: Yes) HTN (hypertension) (POA: Yes) Hyperlipidemia (POA: Yes) Hypothyroid (POA: Yes) ESRD (end stage renal disease) (HCC) (POA: Yes) Hyperkalemia (POA: Unknown) Secondary hyperparathyroidism of renal origin (HCC) (POA: Unknown) Abnormal EKG (POA: Unknown) Resolved Problems: * No resolved hospital problems. * HOSPITAL COURSE: This is a 58 year old female with a past medical history of end-stage renal disease on hemodialysis Monday and Monday, hypertension, hyperlipidemia, type II DM, CVA, Patient presented for elective right upper extremity fistulogram preop EKG was abnormal concerning for acute coronary syndrome also so the procedure was canceled and patient was admitted for further management potassium was 6.3 Patient denies any chest pain or shortness of breath no cough no fever no chills no nausea vomiting or diarrhea Nephrology consulted and patient had hemodialysis patient was admitted for further investigations and cardiology consult 1-ESRD on dialysis (HCC) (POA: Yes) 2-Hyperkalemia Patient with end-stage renal disease on hemodialysis Monday presented for an elective right upper extremity fistulogram prior to the procedure potassium was found to be 6.3 so the procedure was canceled Repeat potassium even before hemodialysis was 5.5 Patient admitted nephrology consulted she had hemodialysis twice during this hospitalization Plan of care discussed with nephrology Dr. Guy appreciate her input Plan is to go back to her normal dialysis schedule Monday and Monday Discussed with vascular surgery fistulogram to be done as an outpatient Vascular surgery will call her and will arrange the procedure 3-Abnormal EKG 4-CAD 5-History of nonsustained VT 6-Severe septal hypertrophy Patient with past medical history of coronary artery disease Cath [facility] 05/2018: 60% distal circumflex, 70% ostial ramus, blockages are noted in smaller vessels, Negative NM Lexiscan [facility] 2019 Severe septal hypertrophy, history of none sustained VT, and hypertension Prior to the fistulogram patient had an EKG that showed sinus rhythm with multiple PVCs Right bundle branch block Left ventricular hypertrophy criteria There was a concern for acute inferior infarct The EKG was reviewed by housing quality standard inspector Dr Barros appreciate his input no acute infarct Patient has no chest pain High-sensitivity troponin elevated but no delta 121 >> 118 most likely due to end-stage renal disease CK-MB was normal Dr. Barros was consulted he reviewed the EKG no STEMI but left ventricular hypertrophy changes A stress test was done that was low risk CONCLUSIONS: 1. SPECT Perfusion Study: Normal. 2. There is no scintigraphic evidence for inducible ischemia. 3. No evidence of scarred myocardium. 4. Left ventricle is normal in size. The left ventricle systolic function is normal. 5. Right ventricle is normal in size. The right ventricle systolic function is normal. 6. This is a low risk scan. Gated Stress FBP Gated Rest FBP LVEF % 67 62 She was started on metoprolol 25 mg twice daily by Dr. Barros She was cleared by cardiology for fistulogram Echo was ordered but was not done during this hospital stay discussed with Dr. Fiorella kimay to discharge patient and he will follow up with her in the office and he will do an echocardiogram as an outpatient 7- Hypoglycemia/ Insulin dependent DM: Patient had an episode of hypoglycemia when she was n.p.o. resolved Continue to (more content not included)... [facility] CONSULTon 06-21-2023 CONSULT HNO ID: [id number] Author: Danita Barros MD Service: Cardiovascular Medicine Author Type: Physician Type: Consults Filed: 06/20/2023 10:26 PM Note Text: CARDIOLOGY SERVICE: CONSULT SERVICE DATE: 06/20/2023 Time: 10:09 PM CONSULTING PHYSICIAN: Danita Barros [facility] PCP: Maldonado Raza MD ATTENDING: Milagro Bruce MD REASON FOR CONSULT: Cardiology Evaluation ASSESSMENT: Noted abnormal EKG worrisome for STEMI I reviewed EKG no STEMI but LVH patient has no chest pain and is here for an elective AV fistula Hyperkalemia 6.3 CAD Cath [facility] 05/2018: 60% distal circumflex, 70% ostial ramus, blockages are noted in smaller vessels, Negative NM Lexiscan [facility] 2019 Low normal systolic function EF 50% [facility] 07/2020 Severe septal hypertrophy 1.7 in the basal segment,, hyperdynamic LV but no HOCM echo [facility] 2019 History of NSVT on BB Hypertension Hyperlipidemia, LDL 44 on 02/23/2023, on Lipitor ESRF-HD DM Thyroid dis, stroke? 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 Thank you Milagro Sal MD for the privilege in participating in Ms. Bhatti's care. Please do not hesitate to call me with any questions. CHIEF COMPLAINT: ESRD (end stage renal disease) (HCC) [N18.6] Hyperkalemia [E87.5] HISTORY OF PRESENT ILLNESS: Ms. Bhatti is a 58 year old female is referred to cardiology consult. Patient was admitted with significant hyperkalemia more than 6 and abnormal EKG. She was here for an elective AV fistula. She has some cardiac history as delineated above. In preop Pathology Laboratory Aide before AV fistula I saw the patient and her family. She was asymptomatic no chest pain or shortness of breath. I reviewed EKG no STEMI MEDICATIONS: Prior to Admission Medications Prescriptions Last Dose Informant Patient Reported? Taking? Blood-Glucose Meter (BLOOD GLUCOSE MONITORING) monitoring kit 06/19/2023 No Yes Si Each three times daily. E11.65. On insulin. NEPHRO-PETEY 0.8 mg tab 06/19/2023 Yes Yes Sig: Take 1 tablet by mouth once daily. SUMAtriptan (IMITREX) 50 mg tablet Unknown at prn No No Sig: Take one tablet by mouth at onset of migraine. May repeat in 2 hours if ineffective amLODIPine (NORVASC) 5 mg tablet 06/19/2023 No Yes Sig: Take 1 tablet by mouth once daily. aspirin, enteric coated (ASPIRIN, ENTERIC COATED) 81 mg EC tablet 06/19/2023 Yes Yes Sig: Take 1 tablet by mouth once daily. atorvastatin (LIPITOR) 40 mg tablet 06/19/2023 No Yes Sig: Take 1 tablet by mouth daily at bedtime. blood sugar diagnostic (BLOOD GLUCOSE TEST) test strip 06/19/2023 No Yes Sig: Test blood sugar(s) 3 times daily. Dx: Type 2 DM - Uncontrolled E11.65 Insulin: Yes cloNIDine HCl (CATAPRES) 0.3 mg tablet 06/19/2023 No Yes Sig: Take 1 tablet by mouth daily at bedtime. docusate sodium (COLACE) 100 mg capsule 06/19/2023 No Yes Sig: Take 1 capsule by mouth twice daily as needed for Constipation. ferric citrate 210 mg iron tab 06/19/2023 Yes Yes Sig: Take 1 tablet by mouth once daily. insulin detemir U-100 (LEVEMIR FLEXTOUCH U-100 INSULIN) 100 unit/mL (3 mL) injection pen 06/19/2023 No Yes Sig: Inject 48 Units subcutaneously daily at bedtime. insulin lispro (HUMALOG KWIKPEN INSULIN) 100 unit/mL 06/19/2023 No Yes Sig: Inject 8 Units subcutaneously three times a day before meals. Add 1 unit for each 50 mg/dl above 150 insulin needles, DISPOSABLE, (PEN NEEDLE) 31 gauge x 01/17 Unknown No No Sig: Use one needle per dose four times per day. levothyroxine (SYNTHROID) 125 mcg tablet 06/19/2023 No Yes Sig: Take 1 tablet by mouth once daily. Take on empty stomach. For Thyroid lisinopril (ZESTRIL) 40 mg tablet 06/19/2023 No Yes Sig: Take 1 tablet by mouth once daily. nitroglycerin sublingual (NITROQUICK) 0.4 mg SL tablet Unknown at prn Yes No Sig: Dissolve 0.4 mg under the tongue every 5 minutes as needed. Facility-Administered Medications: None Current Facility-Administered Medications Medication Dose Route Frequency heparin 5,000 Units injection 5,000 Units SUBCUTANEOUS q 12 H NaCl 0.9% iv flush bag 20 mL INTRAVENOUS PRN dextrose 40 % 15 g 15 g ORAL PRN Or glucagon 1 mg injection 1 mg INTRAMUSCULAR PRN Or dextrose 10% iv bolus 12.5 g INTRAVENOUS PRN insulin lispro injection (rapid acting) (HumaLOG) SUBCUTANEOUS w MEALS atorvastatin 40 mg tab(s) (LIPITOR) 40 mg ORAL AT BEDTIME cloNIDine HCl 0.3 mg tab(s) (CATAPRES) 0.3 mg ORAL AT BEDTIME amLODIPine 5 mg tab(s) (NORVASC) 5 mg ORAL DAILY insulin lispro 6 Units injection (rapid acting) (HumaLOG) 6 Units (more content not included)... [facility] CONSULT PROGon 06-21-2023 CONSULT PROG HNO ID: [id number] Author: Otoniel Guy MD Service: Nephrology Author Type: Physician Type: Consult Progress Note Filed: 06/21/2023 1:49 PM Note Text: CONSULT PROGRESS NOTE NEPHROLOGY SERVICE SERVICE DATE/TIME: June 21, 2023 1:47 PM ADMIT DATE: 06/20/2023 Reason for consult: F/u ESRD SUBJECTIVE INTERVAL HISTORY: Seen and examined on dialysis. OBJECTIVE PHYSICAL EXAM: BP (!) 111/34 Pulse 61 Temp 36.1 ?C (97 ?F) (Temporal) Resp 14 Ht 160 cm (5' 3) Wt 65.8 kg (145 lb) SpO2 99% BMI 25.69 kg/m? Intake/Output Summary (Last 24 hours) at 06/21/2023 1347 Last data filed at 06/20/2023 1800 Gross per 24 hour Intake 168 ml Output 1500 ml Net -1332 ml Admission weight: 65.8 kg (145 lb) Last recorded weight: (pt does not have scale) D5W, Last Rate: 50 mL/hr (06/21/23 0854) Constitutional: NAD Eyes: PERRL, Conjunctiva Clear Ear, Nose, and Throat: MMM Neck:Trachea midline CV: RRR. Normal S1, S2. +murmur Respiratory: Normal respiratory effort. Lungs clear bilaterally. Abdomen: Soft, non-tender, non-distended. Normal bowel sounds. Psychiatric: Alert and oriented x self, place, time, and setting. Normal mood/affect Dialysis Access: RUE AVG accessed. RUE edema > LUE. MEDICATIONS: Current Facility-Administered Medications Medication Dose Route Frequency heparin 5,000 Units injection 5,000 Units SUBCUTANEOUS q 12 H NaCl 0.9% iv flush bag 20 mL INTRAVENOUS PRN dextrose 40 % 15 g 15 g ORAL PRN Or glucagon 1 mg injection 1 mg INTRAMUSCULAR PRN Or dextrose 10% iv bolus 12.5 g INTRAVENOUS PRN insulin lispro injection (rapid acting) (HumaLOG) SUBCUTANEOUS w MEALS atorvastatin 40 mg tab(s) (LIPITOR) 40 mg ORAL AT BEDTIME cloNIDine HCl 0.3 mg tab(s) (CATAPRES) 0.3 mg ORAL AT BEDTIME amLODIPine 5 mg tab(s) (NORVASC) 5 mg ORAL DAILY aspirin, enteric coated 81 mg tab(s) 81 mg ORAL DAILY levothyroxine (SYNTHROID) tab(s) 125 mcg 125 mcg ORAL DAILY nitroglycerin sublingual 0.4 mg tab(s) (NITROQUICK) 0.4 mg SUBLINGUAL q 5 MIN PRN sodium chloride 0.9 % (flush) 2-10 mL (BD POSIFLUSH) 2-10 mL INTRAVENOUS DIRECTED PRN And perflutren lipid microspheres 1.1 mg/mL 1.3 mL injection (DEFINITY) 1.3 mL INTRAVENOUS DIRECTED PRN lisinopril 40 mg tab(s) (ZESTRIL) 40 mg ORAL DAILY metoprolol tartrate (short acting) 25 mg tab(s) (LOPRESSOR) 25 mg ORAL q 12 H insulin glargine 20 Units pen (long acting) 20 Units SUBCUTANEOUS AT BEDTIME insulin lispro 3 Units injection (rapid acting) (HumaLOG) 3 Units SUBCUTANEOUS w MEALS dextrose 5% in water iv infusion 50 mL/hr INTRAVENOUS CONTINUOUS albumin (25%) 25 g iv infusion 25 g INTRAVENOUS PRN DIALYSIS DATA: Diagnostic tests reviewed for today's visit: Recent Labs 06/21/23 0642 06/20/23 1600 06/20/23 0959 06/20/23 0842 CREAT 5.22* -- 6.17* 5.77* BUN 24* -- 27* 27* NA 140 -- 139 138 K 4.5 -- 5.5* 6.3* CHLOR 98 -- 98 98 CO2 33* -- 34* 31* ANION 9 -- 7* 9 GLUC 42* -- 242* 265* CA 9.5 -- 9.4 9.4 MG 2.5* 2.2 -- -- WBC 7.11 -- -- -- HB 11.2* -- -- -- HCT 36.6 -- -- -- PLT 290 -- -- -- ASSESSMENT: Ms. Bhatti is a 58 yo F PMHx of CHF, kidney stones, HTN, VT, T2DM, CVA, ESRD admitted after cancelled fistulogram. ESRD: HD today on regular outpt dialysis schedule. - Outpatient followed by [facility]. Shelton at [facility]. MWF. 4Hrs. HTN: Controlled. - Home norvasc 5mg, clonidine 0.3mg bedtime, lisinopril 40mg ECG changes: Cardiology following RUE edema: Vascular following. Secondary hyperparathyroidism: Follow ca and phos. PLAN: HD today to return to [facility] HD schedule HD next on Monday Pending RUE fistulogram SIGNATURE: Otoniel Guy MD. PATIENT NAME: Sandy Bhatti DATE/TIME: June 21, 2023 1:49 PM FOR AFTER HOUR CONCERNS BETWEEN 7PM - 7AM CONTACT ON-CALL NEPHROLOGY STAFF [facility] CONSULT PROG HNO ID: [id number] Author: Danita Barros MD Service: Cardiovascular Medicine Author Type: Physician Type: Consult Progress Note Filed: 06/22/2023 8:38 PM Note Text: CARDIOLOGY CONSULT PROGRESS NOTE SERVICE DATE: 06/21/2023 Time: 8:09 AM ATTENDING: Milagro Bruce MD Service Engine Repairer: Danita Barros MD ASSESSMENT: LVH, no chest pain CAD Cath [facility] 05/2018: 60% distal circumflex, 70% ostial ramus, blockages are noted in smaller vessels, Negative NM Lexiscan [facility] 2019. NM Lexiscan normal 06/21/2023 For an elective AV fistula Hyperkalemia 6.3 HD Low normal systolic function EF 50% [facility] 07/2020, Severe septal hypertrophy 1.7 in the basal segment, hyperdynamic LV but no HOCM echo [facility] 2018 RBBB 135, LAFB -42 History of NSVT on BB Hypertension Hyperlipidemia, LDL 44 on 02/23/2023, on Lipitor ESRF-HD DM Thyroid dis, stroke? 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 INTERIM HISTORY: Patient feels fine no chest pain or dyspnea comfortable., Eager to go home MEDICATIONS: Current Facility-Administered Medications: heparin 5,000 Units injection NaCl 0.9% iv flush bag dextrose 40 % 15 g OR glucagon 1 mg injection OR dextrose 10% iv bolus insulin lispro injection (rapid acting) (HumaLOG) atorvastatin 40 mg tab(s) (LIPITOR) cloNIDine HCl 0.3 mg tab(s) (CATAPRES) amLODIPine 5 mg tab(s) (NORVASC) insulin lispro 6 Units injection (rapid acting) (HumaLOG) aspirin, enteric coated 81 mg tab(s) levothyroxine (SYNTHROID) tab(s) 125 mcg nitroglycerin sublingual 0.4 mg tab(s) (NITROQUICK) ECHO AND sodium chloride 0.9 % (flush) 2-10 mL (BD POSIFLUSH) AND perflutren lipid microspheres 1.1 mg/mL 1.3 mL injection (DEFINITY) lisinopril 40 mg tab(s) (ZESTRIL) insulin glargine 31 Units pen (long acting) metoprolol tartrate (short acting) 25 mg tab(s) (LOPRESSOR) PHYSICAL EXAM: Body mass index is 25.69 kg/m?. VITAL SIGNS (last recorded): 10/17/23 1845 06/20/23 1900 06/20/23 1959 06/21/23 0700 BP: (!) 125/42 (!) 130/43 (!) 134/40 Pulse: 76 76 74 67 Resp: 16 18 Temp: 37.1 ?C (98.8 ?F) 36.4 ?C (97.5 ?F) TempSrc: Oral Oral SpO2: 97% 97% Weight: Height: Comfortable, not in acute distress. Awake, alert LUNGS: Decreased BSs bilaterally. CARDIAC: S1 and S2 EXTREMITIES: No edema. DATA: Diagnostic tests reviewed for today's visit: Reviewed recent relevant labs, EKG and imaging results. CBC, Coags, BMP, Mg, Phos Recent Labs 06/21/23 0642 06/20/23 1600 06/20/23 0959 06/20/23 0842 WBC 7.11 -- -- -- HB 11.2* -- -- -- HCT 36.6 -- -- -- PLT 290 -- -- -- NA 140 -- 139 138 K 4.5 -- 5.5* 6.3* CHLOR 98 -- 98 98 CO2 33* -- 34* 31* BUN 24* -- 27* 27* CREAT 5.22* -- 6.17* 5.77* GLUC 42* -- 242* 265* CA 9.5 -- 9.4 9.4 MG 2.5* 2.2 -- -- Liver Function, Amylase, AND Lipase Cardiac Enzymes Recent Labs 06/20/23 0959 CK 35* MB 2.7 ABGs Last Lab Drawn: TSH 0.876 02/23/2023 NT Pro BNP 594 06/11/2012 Triglycerides, Nonfasting 56 02/23/2023 HDL Cholesterol, Nonfasting 58 02/23/2023 LDL Cholesterol, Nonfasting 44 02/23/2023 Total Cholesterol, Nonfasting 113 02/23/2023 GUILLERMINA High Sensitivity 124 06/21/2023 GUILLERMINA High Sensitivity 118 06/20/2023 GUILLERMINA High Sensitivity 121 06/20/2023 Thank you, Recommendations are communicated via shared electronic medical records. This note was partially generated using voice recognition system, there may be some incorrect words, spellings, and punctuation that were not noted in checking the note before saving. SIGNATURE: Danita Barros MD PATIENT NAME: Sandy Bhatti DATE: 06/21/2023 TIME: 8:09 AM call 24 hour service line [facility] ECG COMPLETEon 06-21-2023 ECG COMPLETE Ventricular Rate : 6 2 BPM Atrial Rate : 62 BPM P-R Interval : 165 ms QRS Duration : 135 ms Q-T Interval : 470 ms QTC Calculation(Bazett) : 478 ms Calculated P [place] : -13 degrees Calculated R [place] : -42 degrees Calculated T [place] : 120 degrees Sinus rhythm Ventricular premature complex Right bundle branch block LVH with IVCD and secondary repol abnrm Inferior infarct, acute Abnormal ECG Confirmed by MD BARROS BASEL ([id number]) on 06/22/2023 8:33:19 PM NAME : SANDY BHATTI PID : [id number] : 1965 Gender : Female Race : ORD : [id number] Procedure Date : Jun 21 2023 07:55:12 Edit Date : Jun 22 2023 20:33:20 Diagnosis: Sinus rhythm Ventricular premature complex Right bundle branch block LVH with IVCD and secondary repol abnrm Inferior infarct, acute Abnormal ECG Confirmed by MD BARROS BASEL ([id number]) on 06/22/2023 8:33:19 PM Test Reason : CAD Unspecified Location : 400 : FVEKG 3P31 Overread By : MD BARROS BASEL Edited By : MD BARROS BASEL Referred By : , Acquired by : MAMTA COOLEY [facility] HIGH SENSITIVITY TROPONIN To n 06-21-2023 Troponin T.cardiac High sensitivity method [Mass/Vol] 124 ng/L High <12 [facility] Comment on above: Order Comment: Speci men Type: BLOOD SPECIMEN Ordering Facility: [facility] Address: [address] [place] [address] Result Comment: When assessing risk for acute coronary syndromes: In patients undergoing blood draw greater than or equal to 2 hours from symptom onset, with history of very low to moderate risk and non-ischemic ECG, an initial hs-Troponin T less than 12 ng/L AND a 1 hour delta hs-Troponin T less than 3 ng/L should be considered very low risk for 30 day MACE. Performed By: #### H STNT, [id number], #### [facility] CLIA [id number] [place] [id number] [place] Magnesium SerPl-mCncon 06-21 Magnesium [Mass/Vol] 2.5 mg/dL High 1.7-2.3 [facility] Comment on above: Order Comment: Speci men Type: BLOOD SPECIMEN Ordering Facility: [facility] Address: [facility] [address] Performed By: #### H STNT, [id number], #### [facility] CLIA [id number] [place] [id number] [place] NM CARDIAC PERF STRESS/PHARM on 06-21-2023 NM CARDIAC PERF STRESS/PHARM * * *Final Report* * * DATE OF EXAM: Jun 21 2023 12:06PM FVN 0006 - NM CARDIAC PERF STRESS/PHARM / PROCEDURE REASON: CAD screening, high CAD risk, not treadmill candidate * * * * Physician Interpretation * * * * Stress Lodging Facilities Manager Report: [facility] Date of service: 06/21/2023 10:23:06 AM Supervising physician: Danita Barros MD PATIENT: Name: MRS. SANDY BHATTI Age: 58 years Gender: F * * * Final * * * PATIENT: Name: MRS. SANDY BHATTI Age: 58 years Gender: F CONCLUSIONS: 1. SPECT Perfusion Study: Normal. 2. There is no scintigraphic evidence for inducible ischemia. 3. No evidence of scarred myocardium. 4. Left ventricle is normal in size. The left ventricle systolic function is normal. 5. Right ventricle is normal in size. The right ventricle systolic function is normal. 6. This is a low risk scan. Gated Stress FBP Gated Rest FBP LVEF % 67 62 Prior Study Comparison No prior nuclear cardiology exam available for comparison. Nuclear Med Report:1-Day Gated SPECT Myocardial Perfusion with Regadenoson Stress: Myocardial perfusion imaging was performed at rest 30 minutes following the IV injection of the radiotracer. The patient received 0.4 mg of regadenoson, via rapid IV push, immediately followed by radiotracer IV. Gated post stress tomographic imaging was performed 30 to 60 minutes later. See administered radiotracer and doses below. [facility] Date of service: 06/21/2023 10:23:06 AM Ordering Physician: DANITA BARROS. Requesting Physician: DANITA BARROS Indication: Assessment for suspected CAD, Abnormal Baseline ECG and Unable to Exercise Interpreting physician: Cme Rush MD Height: 160.02 cm BSA: 1.71 m? Weight: 65.77 kg BMI: 25.7 kg/m? CT Dose-Length Product(DLP): 28.0 mGy * cm. CT Dose Reduction Employed: Yes. Exam Type: Rest Stress Radiopharm: Tc-99m Tetrofosmin Tc-99m Tetrofosmin Dosage(mCi): 12.6 34.2 Atten Correction: not performed performed Stress Agent: Regadenoson 0.4mg Supply provided from [facility] Resting Blood Press: 153/54 mmHg Image Quality The overall study imaging quality was deemed to be good. FINDINGS: Left Ventricle Wall Motion: Stress IR:3D - All segments are normal. Rest IR:3D - Gated Stress FBP - Reversibility - Gated Rest FBP - Stress IR:3D Stress IR:3D Gated Stress FBP Gated Rest FBP LVEF: 67 % 62 % ED Volume: 70 ml 65 ml ES Volume: 23 ml 25 ml TID: 0.90 Perfusion Findings Stress IR:3D - Summed Score=0 All segments demonstrate normal perfusion. Rest IR:3D - Summed Score=0 All segments demonstrate normal perfusion. Stress IR:3D Rest IR:3D Summed Score=0 Summed Score=0 LEFT VENTRICLE The left ventricle is normal in size. Left ventricular systolic function is normal. Right Ventricle The right ventricle is normal in size. Right ventricle systolic function is normal. Stress Test Findings: There is no scintigraphic evidence for inducible ischemia. There is no evidence of scarring. The left ventricular cavity size is unchanged with stress. * * * Final * * * NM CTAC Report: [facility] Date of service: 06/21/2023 10:23:06 AM CTAC interpreting physician: Cem Rush MD PATIENT: Name: MRS. SANDY BHATTI Age: 58 years Gender: F 1. Incidental Findings from limited non-diagnostic CTAC: - Coronary calcifications visualized. Mitral annular calcification. * * * Final * * * Stress ECG Report: [facility] Date of service: 06/21/2023 10:23:06 AM Ordering physician: DANITA BARROS 4 h youth development specialist: Inna Hylton Sand Tester: Jeffery Queen Interpreting physician: Danita Barros MD Patient name: MRS. SANDY BHATTI Age: 58 years Gender: F Height: 160.02 cm BSA: 1.71 m? Weight: 65.77 kg BMI: 25.7 kg/m? Indication: Atherosclerotic heart disease NOS and Encounter for screening for cardiovascular disorders Stress ECG Conclusion: Conclusion: Normal with exception due to ST depression and chest discomfort Comments: LVH Stress ECG Summary: The patient's resting heart rate was 74 bpm and blood pressure was 153/54 mmHg. The patient received regadenoson 0.4 mg IVP over approximately 15 seconds followed immediately by injection of nuclear isotope. The test was terminated due to end of protocol. Other symptoms during the test included chest discomfort (more content not included)... [facility] NURSING PROGon 06-21-2023 NURSING PROG HNO ID: [id number] Author: Kaitlynn Barger RN Service: Nursing Author Type: Registered Nurse Type: Nursing Progress Note Filed: 06/21/2023 6:55 PM Note Text: 0730 Report received from previous nurse, assumed care 0800 See NPR for complete assessment Pt aware that NPO for stress test this am. Pt denies pain at this time 0830 Blood sugar 57. Page dent to Dr Bruce regarding hypoglycemic episodes and pt being NPR, new orders received 0900 10% dextrose bolus given per PRN orders and D5W infusing at 50 ml/hr. Blood sugar 168. Awaiting nuclear medicine 0928 Pt off unit to nuclear medicine 1210 Pt back to unit. complaining of diarrhea x 1 during stress test, requesting imodium. Tele SR. VSS [address] Bruce, no new orders at this time 1235 Pt left unit for dialysis 1615 Pt back to unit from dialysis. Pt sitting to side of bed eating 1800 Discharge instructions reviewed with pt. Pt verbalized all understanding Bilateral heplocks removed. Awaiting (lives 1.5 hrs away) 1845 Tele DC and pt dressed arrived 1853 Pt left unit via wheelchair with all belongings Normal [facility] NURSING PROG HNO ID: [id number] Author: Duc Torrez, RN Service: Nursing Author Type: Registered Nurse Type: Nursing Progress Note Filed: 06/21/2023 7:23 AM Note Text: Pt up speaking with vascular residents, stated she wasn't feeling well and felt as if her blood sugar is low, bs check results 42, pt nauseated, no vomiting at this time, pt given 2 apple juices, blood sugar recheck within 15 mins pt bs reading 75, reported to oncoming nurse. Normal [facility] Basic metabolic 2000 panelon 06-20-2023 Anion gap [Moles/Vol] 7 mmol/L Low -18 [facility] Comment on above: Order Comment: Speci men Type: BLOOD SPECIMENOrdering Facility: [facility] Address: [place] [address] Performed By: #### H STNT, 70663-8, 2157-6, 88480-4 ####[facility] LABORATORYCLIA [id number] [place] [address] [place] Calcium [Mass/Vol] 9.4 mg/dL Normal 8.5-10.2 [facility] Comment on above: Order Comment: Speci men Type: BLOOD SPECIMENOrdering Facility: [facility] Address: [address] [place] [address] Performed By: #### H STNT, 08077-5, 2157-02, 74845-1 ####[facility] LABORATORYCLIA [id number] [place] [address] [place] Chloride [Moles/Vol] 98 mmol/L Normal 97-105 [facility] Comment on above: Order Comment: Speci men Type: BLOOD SPECIMENOrdering Facility: [facility] Address: [address] [place] [address] Performed By: #### H STNT, 23462-1, 2157-02, 56747-6 ####[facility] LABORATORYCLIA [id number] [place] [id number] [place] CO2 [Moles/Vol] 34 mmol/L High 22-30 [facility] Comment on above: Order Comment: Speci men Type: BLOOD SPECIMENOrdering Facility: [facility] Address: [address] [place] [address] Performed By: #### H STNT, 39051-1, 2157-02, 07034-6 ####[facility] LABORATORYCLIA [id number] [place] [id number] [place] Creatinine [Mass/Vol] 6.17 mg/dL High 0.58-0.96 [facility] Comment on above: Order Comment: Speci men Type: BLOOD SPECIMENOrdering Facility: [facility] Address: [address] [place] [address] Performed By: #### H STNT, 98940-2, 2157-02, 14535-1 ####[facility] LABORATORYCLIA [id number] [place] [id number] [place] Creatinine and Glomerular filtration rate.predicted panel (S/P/Bld) 7 mL/min/1.73m??? Low >=60 [facility] Comment on above: Order Comment: Speci men Type: BLOOD SPECIMENOrdering Facility: [facility] Address: [address] [place] [address] Result Comment: Mary mated Glomerular Filtration Rate (eGFR) is calculated using the 2020 CKD-EPI creatinine equation. This equation utilizes serum creatinine, sex, and age as parameters. The creatinine assay has traceable calibration to isotope dilution-mass spectrometry. Refer to KDIGO guidelines for clinical interpretation. In patients with unstable renal function, e.g. those with acute kidney injury, the eGFR may not accurately reflect actual GFR. Performed By: #### H PHILIPPET, 62602-6, 2157-02, 18342-5 ####[facility] LABORATORYCLIA [id number] [place] [id number] [place] Glucose [Mass/Vol] 242 mg/dL High 74-99 [facility] Comment on above: Order Comment: Bethany reeves Type: BLOOD SPECIMENOrdering Facility: [facility] Address: [address] [place] [address] Result Comment: The [place] Diabetes Association (ADA) provides guidance for cutoff values for fasting glucose and random glucose. The ADA defines fasting as no caloric intake for at least 8 hours. Fasting plasma glucose results between 100 to 125 [...] Standards of Medical Care in Diabetes 2016, [place] Diabetes Association. Diabetes Care. 2016.39(Suppl 1). Performed By: #### H STNT, 38488-4, 2157-02, 45048-9 ####[facility] LABORATORYCLIA [id number] [place] [id number] [place] Potassium [Moles/Vol] 5.5 mmol/L High 3.7-5.1 [facility] Comment on above: Order Comment: Bethany reeves Type: BLOOD SPECIMENOrdering Facility: [facility] Address: [address] [place] [address] Performed By: #### H STNT, 16244-2, 2157-02, 46127-1 ####[facility] LABORATORYCLIA [id number] [place] [id number] [place] Sodium [Moles/Vol] 139 mmol/L Normal 136-144 [facility] Comment on above: Order Comment: Speci men Type: BLOOD SPECIMENOrdering Facility: [facility] Address: [address] [place] [address] Performed By: #### H STNT, 71224-7, 6, 41589-8 ####[facility] LABORATORYCLIA [id number] [place] [address] [place] Urea nitrogen [Mass/Vol] 27 mg/dL High 7-21 [facility] Comment on above: Order Comment: Speci men Type: BLOOD SPECIMENOrdering Facility: [facility] Address: [address] [place] [address] Performed By: #### H STNT, 81662-1, 2157-02, 73641-1 ####[facility] LABORATORYCLIA [id number] [place] [address] [place] Anion gap [Moles/Vol] 9 mmol/L Normal 9-18 [facility] Comment on above: Order Comment: Speci men Type: BLOOD SPECIMEN Ordering Facility: [facility] Address: [address] [place] [address] Performed By: #### 2 4321-2 #### [facility] CLIA [id number] [address] [place] [address] [place] Calcium [Mass/Vol] 9.4 mg/dL Normal 8.5-10.2 [facility] Comment on above: Order Comment: Speci men Type: BLOOD SPECIMEN Ordering Facility: [facility] Address: [address] [place] [address] Performed By: #### 2 4321-2 #### [facility] CLIA [id number] [address] [place] [address] [place] Chloride [Moles/Vol] 98 mmol/L Normal 97-105 [facility] Comment on above: Order Comment: Speci men Type: BLOOD SPECIMEN Ordering Facility: [facility] Address: [address] [place] [address] Performed By: #### 2 4321-2 #### [facility] CLIA [id number] [address] [place] [address] [place] CO2 [Moles/Vol] 31 mmol/L High 22-30 [facility] Comment on above: Order Comment: Speci men Type: BLOOD SPECIMEN Ordering Facility: [facility] Address: [address] [place] [address] Performed By: #### 2 4321-2 #### [facility] CLIA [id number] [address] [place] [address] [place] Creatinine [Mass/Vol] 5.77 mg/dL High 0.58-0.96 [facility] Comment on above: Order Comment: Speci men Type: BLOOD SPECIMEN Ordering Facility: [facility] Address: [address] [place] [address] Performed By: #### 2 4321-2 #### [facility] CLIA [id number] [address] [place] [address] [place] Creatinine and Glomerular filtration rate.predicted panel (S/P/Bld) 8 mL/min/1.73m??? Low >=60 [facility] Comment on above: Order Comment: Speci men Type: BLOOD SPECIMEN Ordering Facility: [facility] Address: [address] [place] [address] Result Comment: Mary mated Glomerular Filtration Rate (eGFR) is calculated using the 2020 CKD-EPI creatinine equation. This equation utilizes serum creatinine, sex, and age as parameters. The creatinine assay has traceable calibration to isotope dilution-mass spectrometry. Refer to KDIGO guidelines for clinical interpretation. In patients with unstable renal function, e.g. those with acute kidney injury, the eGFR may not accurately reflect actual GFR. Performed By: #### 2 4321-2 #### [facility] CLIA [id number] [address] [place] [address] [place] Glucose [Mass/Vol] 265 mg/dL High 74-99 [facility] Comment on above: Order Comment: Speci men Type: BLOOD SPECIMEN Ordering Facility: [facility] Address: [address] [place] [address] Result Comment: The [place] Diabetes Association (ADA) provides guidance for cutoff values for fasting glucose and random glucose. The ADA defines fasting as no caloric intake for at least 8 hours. Fasting plasma glucose results between 100 to 125 [...] Standards of Medical Care in Diabetes 2016, [place] Diabetes Association. Diabetes Care. 2016.39(Suppl 1). Performed By: #### 2 4321-2 #### [facility] CLIA [id number] [address] [place] [address] [place] Potassium [Moles/Vol] 6.3 mmol/L Critically high 3.7-5.1 [facility] Comment on above: Order Comment: Speci men Type: BLOOD SPECIMEN Ordering Facility: [facility] Address: [address] [place] [address] Performed By: #### 2 4321-2 #### [facility] CLIA [id number] [address] [place] [address] [place] Sodium [Moles/Vol] 138 mmol/L Normal 136-144 [facility] Comment on above: Order Comment: Bethany reeves Type: BLOOD SPECIMEN Ordering Facility: [facility] Address: [address] [place] [address] Performed By: #### 2 4321-2 #### [facility] CLIA [id number] [address] [place] [address] [place] Urea nitrogen [Mass/Vol] 27 mg/dL High 7-21 [facility] Comment on above: Order Comment: Speci men Type: BLOOD SPECIMEN Ordering Facility: [facility] Address: [address] [place] [address] Performed By: #### 2 4321-2 #### [facility] CLIA [id number] [address] [place] [address] [place] CK MB SerPl-mCncon 3 CK.MB [Mass/Vol] 2.7 ng/mL Normal <4.4 [facility] Comment on above: Order Comment: Speci men Type: BLOOD SPECIMENOrdering Facility: [facility] Address: [place] [address] Performed By: #### H STNT, 38781-9, 2157-6, 63821-1 ####[facility] LABORATORYCLIA [id number] [address] [place] CK SerPl-cCncon 06-20-2023 CK [Catalytic activity/Vol] 35 U/L Low 42-196 [facility] Comment on above: Order Comment: Speci men Type: BLOOD SPECIMENOrdering Facility: [facility] Address: [place] [address] Performed By: #### H STNT, 37225-6, 2157-6, 97375-3 ####[facility] LABORATORYCLIA [id number] [address] OF [facility] CNPNon 06-20-2023 CNPN Telephone (MEPRAD) -- SANDY BHATTI ([id number]) 1965 F Date Time Provider Department 06/20/23 ARAM EDUARDO [facility] During your visit today, we recorded the following information about you: Aram Eduardo MD 06/20/2023 10:25 AM Signed Sandy Bhatti is a 58 year old female, fistula gram scheduled today. Pt. Is complaining of SOB Pre op EKG possible inferior STEMI, housing quality standard inspector dr. Barros was called and said no STEMI . And the EKG changes related to fluid overload. BMP K 6.2 . Procedure was canceled , nephrology will be called for HD Allergies As of Date: 06/20/2023 Noted Allergy Reaction CODEINE 12/11/2006 8 - GI Upset LATEX 03/22/2012 4 - Hives Comments: 2006 had reaction after surgery PENICILLINS 12/11/2006 7 - Swelling CHLORHEXIDINE 11/26/2018 2 - Rash Date Reviewed: 06/20/2023 Reviewed by: Chet Milan RN - Fully Assessed Reason for Visit: Hospital To Hospital [[id number]] Cmt: Sandy Bhatti is a 58 year old female, fistula gram scheduled today. Pt. Is complaining of SOB Pre op EKG possible inferior STEMI, housing quality standard inspector dr. Barros was called and said no STEMI . And the EKG changes related to fluid overload. BMP K 6.2 . Procedure was canceled , nephrology will be called for HD Prescriptions as of 06/20/2023 - insulin lispro (HUMALOG KWIKPEN INSULIN) 100 unit/mL Inject 8 Units subcutaneously three times a day before meals. Add 1 unit for each 50 mg/dl above 150 - insulin detemir U-100 (LEVEMIR FLEXTOUCH U-100 INSULIN) 100 unit/mL (3 mL) injection pen Inject 48 Units subcutaneously daily at bedtime. - amLODIPine (NORVASC) 5 mg tablet Take 1 tablet by mouth once daily. - cloNIDine HCl (CATAPRES) 0.3 mg tablet Take 1 tablet by mouth daily at bedtime. - atorvastatin (LIPITOR) 40 mg tablet Take 1 tablet by mouth daily at bedtime. - lisinopril (ZESTRIL) 40 mg tablet Take 1 tablet by mouth once daily. - insulin needles, DISPOSABLE, (PEN NEEDLE) 31 gauge x 5/16 Use one needle per dose four times per day. - levothyroxine (SYNTHROID) 125 mcg tablet Take 1 tablet by mouth once daily. Take on empty stomach. For Thyroid - SUMAtriptan (IMITREX) 50 mg tablet Take one tablet by mouth at onset of migraine. May repeat in 2 hours if ineffective - ferric citrate 210 mg iron tab Take 1 tablet by mouth once daily. - docusate sodium (COLACE) 100 mg capsule Take 1 capsule by mouth twice daily as needed for Constipation. - nitroglycerin sublingual (NITROQUICK) 0.4 mg SL tablet Dissolve 0.4 mg under the tongue every 5 minutes as needed. - NEPHRO-PETEY 0.8 mg tab Take 1 tablet by [...] once daily. Problem List As Of Date 06/20/2023 Noted Resolved Calculus of ureter [N20.1] 06/12/2007 [...] (end stage renal disease) (HCC) [N18.6] 04/21/2021 Ventral hernia with obstruction, without gangre*12/09/2021 Tubular adenoma of colon [D12.6] 11/15/2022 Encounter Status:Closed by SIMBA EDUARDO on 06/20/23 [facility] CONSULTon 06-20-2023 CONSULT HNO ID: [id number] Author: Otoniel Guy MD Service: Nephrology Author Type: Physician Type: Consults Filed: 06/20/2023 2:53 PM Note Text: CONSULT: NEPHROLOGY SERVICE SERVICE DATE/TIME: June 20, 2023 11:25 AM ADMIT DATE: 06/20/2023 Chief Complaint: Hyperkalemia, ECG changes Reason for Consult: ESRD, hyperkalemia HPI: Ms. Bhatti is a 58 yo F PMHx of CHF, kidney stones, HTN, VT, T2DM, CVA, ESRD admitted after cancelled fistulogram. Presented for elective RUE fistulogram. Pre-op ECG concerning for ACS and labs showed K 6.3. Cardiology consulted and concluded no STEMI. Fistulogram cancelled. Admitted for further management. At time of consult seen and examined on dialysis. Denies chest pain, dyspnea, nausea, vomiting, lower ext edema. Sometimes cramping during dialysis. ESRD HISTORY: Etiology: DM/HTN Date of first HD: 02/2018 Current HD unit: [facility] Security Architect: Dr. Shelton Schedule: Mon-Mon-Mon Time: 4 hrs Last HD: Jun 19, 2023 PAST MEDICAL HISTORY: PAST MEDICAL HISTORY Diagnosis Date Acute kidney failure (HCC) 01/14/2018 Acute respiratory failure (HCC) Anxiety Arterial steal syndrome (HCC) 12/2018 Left AVF Calculus of ureter 06/12/2007 CKD (chronic kidney disease) stage V requiring chronic dialysis ([facility]) 03/01/2018 Dr. Pendleton, nephrology. Congestive heart failure (HCC) Constipation Depression 09/04/2006 GERD (gastroesophageal reflux disease) Hemorrhoids HTN (hypertension) 09/04/2001 Hyperlipidemia 09/04/1999 Hypertrophic cardiomyopathy (HCC) Proteinuria 06/14/2013 Renal colic 06/12/2007 Steal syndrome dialysis vascular access ([facility]) 05/17/2019 Recent increased left arm swelling, which was not previously present. She had an intervention in January on the mid subclavian vein for outflow stenosis. Her fistula is patent and working well. Assessment: 05/16/19 LUE DRIL (proximal brachial to distal brachial artery bypass with RLE rGSV - LUE fistula site c/d/i, +thrill/bruit, radial pulse palpable - RLE Stroke ([facility]) Thyroid disorder Tubular adenoma of colon 11/15/2022 Type II or unspecified type diabetes mellitus without mention of complication, not stated as uncontrolled 09/04/1985 VT (ventricular tachycardia) ([facility]) 05/17/2019 History: Per patient, has history of excited rhythm. Sees a housing quality standard inspector in [place], last seen in January 2019. No concerns. She will continue to follow up with them. Assessment: Ventricular tachycardia intermittently post-op with HR up to 110s. No chest pain or SOB. Troponins sent to monitor. Labs WNL. ECG completed showing BBB (has had on intermittent previous ECG). - 05/17/19 repeat ECG back to PAST SURGICAL HISTORY: PAST SURGICAL HISTORY Procedure Laterality Date APPENDECTOMY 1992 AV ANASTOMIES OPEN;BY BASILIC VEIN WINN Right 04/20/2020 transpose basilic vein fistula, R arm AV FISTULA OR GRAFT VENOUS Left 10/04/2017 AV FISTULA OR GRAFT VENOUS Left 09/20/2018 redo, failure to mature AV FISTULA OR GRAFT VENOUS Right 04/21/2021 BOWEL RESECTION HX 2005 CHOLECYSTECTOMY 1984 Cholecystectomy COLONOSCOPY SCREENING 11/15/2022 COLOSTOMY/SKIN LEVEL CECOSTOMY 2006 [id number], reversed 2006 CREATION OF AVF, PERCUTANEOUS USING MAGNETIC-GUIDED ARTERIAL AND VENOUS CATHETERS AND RADIOFREQUENCY ENERGY Right 11/14/2019 RIGHT AVF stage I EXPLORATORY LAPAROTOMY CELIOTOMY W/WO BIOPSY SPX 2006 Laparotomy, exp IR VENOUS FISTULAGRAM Left 01/22/2019 Left SC balloon PAST SURGICAL HISTORY OF Left 05/16/2019 LUE DRSOILA (proximal brachial to distal brachial artery bypass with RLE rGSV PAST SURGICAL HISTORY OF Left Cataract removed REDUCTION OF LARGE BREAST 1989 SALPINGECTOMY OR OOPHERECTOMY-ECTOPIC 1985 SLING OPER STRES INCONTINENCE 1998 TOTAL ABDOMINAL HYSTERECT W/WO RMVL TUBE OVARY 1990 Hysterectomy, RUSSELL FAMILY HISTORY: Family History Problem Relation Age of Onset Diabetes Mother Coronary Artery Disease Mother COPD Mother dec. age 79 Cancer Mother lung cancer Colon Cancer Father at age 52 Diabetes Sister Hypertension Sister Kidney Disease Brother other (Heart condition) Brother Diabetes Brother Cancer Brother lung cancer Coronary Artery Disease Brother dec. [place] 57 y.o. No Known Problems Maternal Grandmother No Known Problems Maternal Grandfather No Known Problems Paternal Grandmother No Known Problems Paternal Grandfather SOCIAL HISTORY: reports that she quit smoking about 17 years ago. Her smoking use included cigarettes. She has a 4.50 pack-year smoking history. She has never used smokeless tobacco. She reports that she does not drink alcohol and does not use drugs. ALLERGIES: ALLERGIES Allergen Reactions Codeine GI Upset Latex Hives 2006 had reaction after surgery Penicillins Swelling Chlorhexidine Rash MEDICATIONS: No current facility-administered medications on file prior to encounter. Current Outpatient Medications on F (more content not included)... [facility] ECG COMPLETEon 06-20-2023 ECG COMPLETE Ventricular Rate : 6 8 BPM Atrial Rate : 67 BPM P-R Interval : 170 ms QRS Duration : 133 ms Q-T Interval : 457 ms QTC Calculation(Bazett) : 487 ms Calculated P [place] : -2 degrees Calculated R [place] : -38 degrees Calculated T [place] : 118 degrees Sinus rhythm Multiple ventricular premature complexes Right bundle branch block LVH with IVCD and secondary repol abnrm ST elevation, consider inferior injury or acute infarct Abnormal ECG Confirmed by AUGUSTUS VILLANUEVA MD ([id number]) on 06/29/2023 1:38:28 PM NAME : SANDY BHATTI PID : [id number] : 1965 Gender : Female Race : ORD : [id number] Procedure Date : Jun 20 2023 08:25:43 Edit Date : Jun 29 2023 13:38:29 Diagnosis: Sinus rhythm Multiple ventricular premature complexes Right bundle branch block LVH with IVCD and secondary repol abnrm ST elevation, consider inferior injury or acute infarct Abnormal ECG Confirmed by AUGUSTUS VILLANUEVA MD ([id number]) on 06/29/2023 1:38:28 PM Test Reason : Pre OP Location : 400 : [facility] 17 Overread By : AUGUSTUS VILLANUEVA MD Edited By : AUGUSTUS VILLANUEVA MD Referred By : , Acquired by : NM, Normal [facility] HBV core Ab Ser Qlon 023 HBV core Ab Ql (S) Negative Normal Negative [facility] Comment on above: Order Comment: Speci men Type: BLOOD SPECIMEN Ordering Facility: [facility] Address: [address] [place] [address] Result Comment: No e vidence of current or past infection with Hepatitis B virus. Should recent infection be suspected, repeat testing may be considered 3-4 weeks after this draw. Performed By: #### 1 6933-4 #### [facility] CLIA [id number] [address] [facility] [place] [address] [place] HBV surface Ag Ser Qlon 06-04 HBV surface Ag Ql (S) Negative Normal Negative [facility] Comment on above: Order Comment: Bethany reeves Type: BLOOD SPECIMEN Ordering Facility: [facility] Address: [address] [place] [address] Performed By: #### 5 195-3 #### [facility] CLIA [id number] [address] [place] [address] [place] HIGH SENSITIVITY TROPONIN To n 06-20-2023 Troponin T.cardiac High sensitivity method [Mass/Vol] 118 ng/L High <12 [facility] Comment on above: Order Comment: Bethany reeves Type: BLOOD SPECIMEN Ordering Facility: [facility] Address: [address] [place] [address] Result Comment: When assessing risk for acute coronary syndromes: In patients undergoing blood draw greater than or equal to 2 hours from symptom onset, with history of very low to moderate risk and non-ischemic ECG, an initial hs-Troponin T less than 12 ng/L AND a 1 hour delta hs-Troponin T less than 3 ng/L should be considered very low risk for 30 day MACE. Performed By: #### H STNT, 22130-3, 12034-0 #### [facility] CLIA [id number] [place] [address] [place] Troponin T.cardiac High sensitivity method [Mass/Vol] 121 ng/L High <12 [facility] Comment on above: Order Comment: Bethany reeves Type: BLOOD SPECIMENOrdering Facility: [facility] Address: [address] [place] [address] Result Comment: When assessing risk for acute coronary syndromes: In patients undergoing blood draw greater than or equal to 2 hours from symptom onset, with history of very low to moderate risk and non-ischemic ECG, an initial hs-Troponin T less than 12 ng/L AND a 1 hour delta hs-Troponin T less than 3 ng/L should be considered very low risk for 30 day MACE. Performed By: #### H STNT, 60997-9, 2157-6, 66602-8 ####[facility]ORATORYCLIA [id number] [place] [address] [place] HISTORY PHYSICALon 10-17-202 3 HISTORY PHYSICAL HNO ID: [id number] Author: Milagro Bruce MD Service: Hospital Medicine Author Type: Physician Type: HANDP Filed: 06/20/2023 6:10 PM Note Text: DEPARTMENT OF HOSPITAL MEDICINE HISTORY AND PHYSICAL EXAM SERVICE DATE: 06/20/2023 SERVICE TIME: 5:48 PM Primary Care Physician: Maldonado Raza MD NIGHT AND WEEKEND COVERAGE: [facility] COVERAGE:Team Subjective CHIEF COMPLAINT: Hyperkalemia HPI: This is a 58 year old female with a past medical history of end-stage renal disease on hemodialysis Monday and Monday, hypertension, hyperlipidemia, type II DM, CVA, Patient presented for elective right upper extremity fistulogram preop EKG was abnormal concerning for acute coronary syndrome also so the procedure was canceled and patient was admitted for further management potassium was 6.3 patient denies any chest pain or shortness of breath no cough no fever no chills no nausea vomiting or diarrhea Nephrology consulted and patient had hemodialysis patient was admitted for further investigations and cardiology consult Of note patient had hernia surgery couple of weeks ago denies any abdominal pain no discharge from surgical incision PAST MEDICAL HISTORY Diagnosis Date Acute kidney failure (HCC) 01/14/2018 Acute respiratory failure (HCC) Anxiety Arterial steal syndrome ([facility]) 12/2018 Left AVF Calculus of ureter 06/12/2007 CKD (chronic kidney disease) stage V requiring chronic dialysis ([facility]) 03/01/2018 Dr. Pendleton, nephrology. Congestive heart failure (HCC) Constipation Depression 09/04/2006 GERD (gastroesophageal reflux disease) Hemorrhoids HTN (hypertension) 09/04/2001 Hyperlipidemia 09/04/1999 Hypertrophic cardiomyopathy (HCC) Proteinuria 06/14/2013 Renal colic 06/12/2007 Steal syndrome dialysis vascular access ([facility]) 05/17/2019 Recent increased left arm swelling, which was not previously present. She had an intervention in January on the mid subclavian vein for outflow stenosis. Her fistula is patent and working well. Assessment: 05/16/19 JOHANNE DRIL (proximal brachial to distal brachial artery bypass with RLE rGSV - LUE fistula site c/d/i, +thrill/bruit, radial pulse palpable - RLE Stroke ([facility]) Thyroid disorder Tubular adenoma of colon 11/15/2022 Type II or unspecified type diabetes mellitus without mention of complication, not stated as uncontrolled 09/04/1985 VT (ventricular tachycardia) ([facility]) 05/17/2019 History: Per patient, has history of excited rhythm. Sees a housing quality standard inspector in [place], last seen in January 2019. No concerns. She will continue to follow up with them. Assessment: Ventricular tachycardia intermittently post-op with HR up to 110s. No chest pain or SOB. Troponins sent to monitor. Labs WNL. ECG completed showing BBB (has had on intermittent previous ECG). - 05/17/19 repeat ECG back to PAST SURGICAL HISTORY Procedure Laterality Date APPENDECTOMY 1992 AV ANASTOMIES OPEN;BY BASILIC VEIN WINN Right 04/20/2020 transpose basilic vein fistula, R arm AV FISTULA OR GRAFT VENOUS Left 10/04/2017 AV FISTULA OR GRAFT VENOUS Left 09/20/2018 redo, failure to mature AV FISTULA OR GRAFT VENOUS Right 04/21/2021 BOWEL RESECTION HX 2005 CHOLECYSTECTOMY 1984 Cholecystectomy COLONOSCOPY SCREENING 11/15/2022 COLOSTOMY/SKIN LEVEL CECOSTOMY 2006 [id number], reversed 2006 CREATION OF AVF, PERCUTANEOUS USING MAGNETIC-GUIDED ARTERIAL AND VENOUS CATHETERS AND RADIOFREQUENCY ENERGY Right 11/14/2019 RIGHT AVF stage I EXPLORATORY LAPAROTOMY CELIOTOMY W/WO BIOPSY SPX 2006 Laparotomy, exp IR VENOUS FISTULAGRAM Left 01/22/2019 Left SC balloon PAST SURGICAL HISTORY OF Left 05/16/2019 JOHANNE ELLIOTT (proximal brachial to distal brachial artery bypass with RLE rGSV PAST SURGICAL HISTORY OF Left Cataract removed REDUCTION OF LARGE BREAST 1989 SALPINGECTOMY OR OOPHERECTOMY-ECTOPIC 1985 SLING OPER STRES INCONTINENCE 1998 TOTAL ABDOMINAL HYSTERECT W/WO RMVL TUBE OVARY 1991 Hysterectomy, RUSSELL FAMILY HISTORY Problem Relation Age of Onset Diabetes Mother Coronary Artery Disease Mother COPD Mother dec. age 79 Cancer Mother lung cancer Colon Cancer Father at age 52 Diabetes Sister Hypertension Sister Kidney Disease Brother other (Heart condition) Brother Diabetes Brother Cancer Brother lung cancer Coronary Artery Disease Brother dec. [place] 57 y.o. No Known Problems Maternal Grandmother No Known Problems Maternal Grandfather No Known Problems Paternal Grandmother No Known Problems Paternal Grandfather Social History Tobacco Use Smoking status: Former Packs/day: 1.50 Years: 3.00 Additional pack years: 0.00 Total pack years: 4.50 Types: Cigarettes Quit date: 09/04/2005 Years since quittin.8 Smokeless tobacco: Never Tobacco comments: quit march 10 Vaping Use Vaping Use: Never used Substance Use Topics Alcohol use: No Drug use: No MEDICATIONS: Reviewed insulin lispro (HUMALOG KWIKP (more content not included)... [facility] HISTORY PHYSICAL HNO ID: [id number] Author: Herberth Gan PA-C Service: Cardiovascular Disease Author Type: Physician Sand Tester Type: HANDP Filed: 06/20/2023 9:16 AM Note Text: UPDATED PROCEDURAL SEDATION HISTORY AND PHYSICAL EXAMINATION SERVICE DATE: 06/20/2023 SERVICE TIME: 8:58 AM PROCEDUREALIST: Surgeon(s) and Role: * Medardo Rogel MD - Primary PHYSICAL EXAM MUST BE COMPLETED ON ADMISSION The History and Physical (completed in the past 30 days) has been reviewed and the patient has been examined. The contents accurately reflect the patient's condition with the following additions or revisions since the HANDP was completed. This HANDP can be found in the Electronic Medical Record.06/12/23 ASA Class: ASA Class:: Patient with severe systemic disease - Emergency Procedure Patient Vitals for the past 24 hrs: BP Temp Temp src Pulse Resp SpO2 Height Weight 06/20/23 0852 -- -- -- -- 16 -- -- -- 06/20/23 0818 148/69 (!) 35.5 ?C (95.9 ?F) Temporal 85 -- 99 % 160 cm (5' 3) 65.8 kg (145 lb) AIRWAY: Airway Visualization of Uvula: Yes Mouth opening greater than 2 fingerbreadths: Yes Neck Full Range of Motion: Yes LUNGS: Lungs clear to auscultation, Good diaphragmatic excursion CARDIAC: Normal S1 - S2, no murmur CAROTIDS: Without bruits LE PULSES: Right Leg- Palpable. Left Leg- Palpable Abnormal EKG but no change from 04/10/23one History of TIA: Yes History of AK: No Diabetes: Yes History of Bleeding Issues: No There is thril and bruit at A.V graft SEDATION GOAL: Moderate DATA: Diagnostic tests reviewed for today's visit: Most recent EKG Most recent labs POC INR: CBC: No results for input(s): WBC, RBC, HB, HCT, PLT, MCV, MCH, MPV, RDW in the last 720 hours. Coags: No results for input(s): PT, INR, APTT in the last 720 hours. BMP: No results for input(s): NA, K, CHLOR, CO2, BUN, CREAT, GLUC in the last 720 hours. Provisional Diagnosis/Treatment Plan: A.V graft angiogram, Assessment: ESRD, H.D, Mechanical complication of AV graft of right upper arm, with difficulty accessing during dialysis, Aso edema and pain the same arm D.M, HTN , Hypothyroidida, hyperlipidemia Plan: Ordered Pre-op LABS and EKG reviewed and results evaluated. The medical history was reviewed and updated. Pre-procedural IV antibiotic was ordered Proceed with procedure I spent a total of 25 minutes on the date of the service which included preparing to see the patient, [id number] patient care, completing clinical documentation, obtaining and/or reviewing separately obtained history, performing a medically appropriate examination, and ordering medications, tests, or procedures. SIGNATURE: Herberth Gan PA-C PATIENT NAME: Sandy Bhatti DATE: June 20, 2023 TIME: 8:58 AM PAGER: [facility] Magnesium SerPl-mCncon 06-20 Magnesium [Mass/Vol] 2.2 mg/dL Normal 1.7-2.3 [facility] Comment on above: Order Comment: Speci men Type: BLOOD SPECIMEN Ordering Facility: [facility] Address: [address] [place] [address] Performed By: #### H STNT, 66251-0, 39916-8 #### [facility] CLIA [id number] [address] [place] [address] [place] NURSING PROGon 06-20-2023 NURSING PROG HNO ID: [id number] Author: Shruthi Mcnally Service: Nursing Author Type: ? Type: Nursing Progress Note Filed: 06/20/2023 4:31 PM Note Text: Nursing Progress Note Topic of Note: Daily Note PATIENT NAME: Sandy Bhatti Patient Location: [place] [address]/[facility]3P3 15-0 Room: [id number] 1600-Pt came from Dialysis, Dr. Dergham at bedside going over POC, VSS, BS 153, Orders for admitting being put in [place], SR on tele, no pain,numbness nor tingling from RUE site, Pt is moving independently, Call light within reach. This note was completed by: Shruthi Mcnally [facility] NURSING PROG HNO ID: [id number] Author: Chet Milan, RN Service: Nursing Author Type: Registered Nurse Type: Nursing Progress Note Filed: 06/20/2023 12:40 PM Note Text: 09 Pt arrived as outpatient for fistulagram. EKG done. BMP sent as ordered. K+ resulted at 6.3. Dr. Rogel notified. 0950 Dr Higgins at bedside. Will place Dr Barros on consult for abnormal EKG. 0955 Lab at bedside. 0958 Dr Barros at bedside. Per Dr Barros, patient is not experiencing acute AK. Will draw labs and admit patient. Cardiology to follow. Patient and in agreement. [address] Higgins regarding patient's labs and admission status. Hi-sensitivity Trop 121, CK 35, MB 2.7. Repeat K+ 5.5. Per Dr Higgins will admit patient under Dr Eduardo's service. Pt to have dialysis today. Awaiting bed placement. [address] Eduardo, keep patient NPO until she is seen by hospitalist. 1210 Report called to JESSICA Michael [facility]. 1225 Report given to JESSICA Mancilla dialysis. 1232 Pt transported to dialysis. Will be admitted to [facility] following dialysis. All belongings sent with patient. [facility] TYPE + SCREENon 06-20-[address]BO [address] [facility] Comment on above: Order Comment: Speci men Type: BLOOD SPECIMENOrdering Facility: [facility] Address: [address] [place] [address] Performed By: #### T SCR ####[facility] [id number] [place] [address] [place] HISTORICAL AB SCR STATUS Negative [facility] Comment on above: Order Comment: Speci men Type: BLOOD SPECIMENOrdering Facility: [facility] Address: [address] [place] [address] Performed By: #### T SCR ####[facility] [id number] [place] [address] [place] Rh Nom (Bld) Positive [facility] Comment on above: Order Comment: Speci men Type: BLOOD SPECIMENOrdering Facility: [facility] Address: [address] [place] [address] Performed By: #### T SCR ####[facility] [id number] [place] [id number] [place] TYPE AND SCREEN EXPIRATION 06/23/2023 23:59 [facility] Comment on above: Order Comment: Speci men Type: BLOOD SPECIMENOrdering Facility: [facility] Address: [address] [place] [address] Performed By: #### T SCR ####[facility] [id number] [place] [id number] [place] Generalized Anxiety Disorder -7on 05-31-2023 Generalized Anxiety Disorder-7 8 1 [facility] [place] [address] Work Phone: Generalized Anxiety Disorder-7 2-More than half the days [facility] Work Phone: [phone] Generalized Anxiety Disorder-7 1-Several days [facility] Work Phone: PHQ-9on 05-31-2023 Adult depression screening assessment Moderate (10-14) [facility] [place] [address] Work Phone: PHQ-9 1-Several days [facility] Work Phone: [phone] PHQ-9 0-Not at all [facility] Work Phone: PHQ-9 2-More than half the days [facility] Work Phone: PHQ-9 Somewhat Difficult [facility] Work Phone: SIPATon 05-31-2023 SIPAT 1) Mild Clinical Anxiety [facility] Work Phone: SIPAT 0) No Clinical Naty [facility] Work Phone: SIPAT 0) No Clinical Psychosis [facility] [place] [address] Work Phone: SIPAT 0) None [facility] Work Phone: SIPAT 0) Self-Initiated [facility] [place] [address] Work Phone: SIPAT 0) Excellent [facility] Work Phone: SIPAT 4) Moderate Psychopathology [facility] [place] [address] Work Phone: SIPAT 2) Moderate Clinical Depression [facility] Work Phone: SIPAT 21-39 Minimally Acce ptable Candidate [facility] [place] [address] Work Phone: [phone] SIPAT 0) Excellent Understanding [facility] [place] [address] Work Phone: [phone] SIPAT 1) Good Understanding [facility] [place] [address] Work Phone: [phone] SIPAT 2) Mild [facility] Work Phone: SIPAT 2) No Problematic Al cohol Use [facility] Work Phone: [phone] SIPAT 1) Low Risk [facility] Work Phone: SIPAT 4) Moderate Substanc e Use Disorder [facility] Work Phone: SIPAT 2) Moderate Risk [facility] Work Phone: SIPAT 1) Past Use [facility] [place] [address] Work Phone: Initial Visit (Nephrology)on 05-30-2023 Initial Visit (Nephrology) Provider Impressions Ms. Sandy Bhatti is a 58-year-old female with a history of ESRD secondary to type 2 diabetes currently on dialysis since 02/14/2018. She is getting dialyzed on Monday at [facility] with the doctor Kristie. Seems to be a okay candidate for kidney transplantation: -Karnofsky score is greater than 80 -Need complete cardiac work-up with cardiology clearance -Need psychosocial clearance because of the history of depression -Need CAT scan abdomen pelvis along with CT chest as the patient had a prior history of smoking. Needs surgical clearance as a patient have ventral hernia and multiple abdominal surgeries along with colostomy reversal. -Patient had a colonoscopy in November 2022 found to have tubular adenoma recommend repeat in 2025-family history of colon cancer. -Need ultrasound of the carotids to evaluate for any stenosis. I believe this patient is : [] a marginal candidate for kidney transplantation pending: The case will be presented at the selection committee at the [facility] [place]. The final decision from the committee will be sent out to notify the patient/primary care physician/stock unloader. In addition, the following were also discussed: -The typical course of both and live donor-transplant. -Risks and benefits of transplantation, both short-term and long-term. -Risks of primary graft non-function, delayed graft function, sluggish graft function, rejection, primary disease recurrence, return to dialysis -Risks of immunosuppression including infections, cancer, diabetes, cardiovascular disease and stroke. -Need for compliance with medications and medical care in general. The patient expressed understanding of the recommendations and discussion above and wishes to proceed. I answered all of the patient's questions to the best of my ability. I encouraged the patient to pursue living donor candidates. I have spent over 60 minutes with the patient. Greater than 50% of the time was spent in counselling. I also reviewed the available documents in the medical record, blood test results, imaging and previous diagnostic studies. Thank you for this consultation. I appreciate your kind referral. Please feel free to contact me for any questions or concerns. History of Present Illness Ms. Sandy Bhatti is a 58-year-old female with a history of ESRD secondary to type 2 diabetes currently on dialysis since 02/14/2018. She is getting dialyzed on Monday at [facility] with the doctor Kristie. History in detail: Type II diabetic almost 30 years plus patient had retinopathy but no neuropathy. Started dialysis in 2018 never had any biopsy of the kidney. Her dry weight is 147 pounds blood pressure stones high. Her urine output gradually going down recently. 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 -Denied any other issues with the dialysis. Other history: History of stroke/TIA in 2006, hypothyroidism -History of kidney stones unable to tell what type of stones but she long time back. -She had a history of depression prior at the time when she was started on dialysis at that time she was on medications which were removed once she was started on dialysis and never put her back. Denied any suicidal thoughts or suicidal attempts before. Surgical history: -Patient underwent appendectomy in 1998. -Cholecystectomy surgery was complicated by bowel perforation requiring exploratory laparotomy and colostomy. Eventually reversal of colostomy was done in 2006. Patient does have a issues with constipation since then. Family history: Father because of the colon cancer at the age of 58 -Brother was on dialysis currently transplanted 2 years back. Niece is also on hemodialysis. Diabetes and coronary artery disease runs in the family Social history: Lives with her . Mentioned that her sister will help out in case if she gets a transplant. She had 1 kid no potential living donors. -She used to smoke until 6 years back to 1 pack/week -Denied alcohol drinking since 2018 -Denied IV drug use or marijuana use. -COVID vaccinated. Active Problems Pre-transplant evaluation for kidney transplant (V72.83) (Z01.818) Transplant (V42.9) (Z94.9) Past Medical History History of ESRD (end stage renal disease) on dialysis (585.6,V45.11) (N18.6,Z99.2) History of hypothyroidism (V12.29) (Z86.39) History of transient ischemic attack (V12.54) (Z86.73) History of Multiple kidney stones (592.0) (N20.0) Surgical History History of Arteriovenous fistula creation procedure History of Cholecystectomy History of Colostomy History of Colostomy closure History of Exploratory laparotomy History of Total hysterectomy abdominal History of Saul (more content not included)... [facility] - HLA antigenson 05-30-2023 HLA-A+B+C (class I) Ab (S) SEE COMMENT [facility] Work Phone: [phone] Comment on above: HLA-CLASS I SP ANTIB DIEGO IDENTIFICATION, HIGH DEFINITION SEE SEPARATE REPORT.Test performed at [facility], 6th Floor [address] [place] [address] HLA-DP+DQ+DR (class II) Ab (S) SEE COMMENT [facility] Work Phone: [phone] Comment on above: HLA-CLASS II SP ANTI BODY IDENTIFICATION, HIGH DEFINITION SEE SEPARATE REPORT.Test performed at [facility], 6th Floor [address] [place] [address] HLA-A locus Nom (Bld/Tiss) Canceled [facility] [place] [address] Work Phone: [phone] HLA-B locus Nom (Bld/Tiss) Canceled [facility] [place] [facility] Work Phone: [phone] HLA-C locus Nom (Bld/Tiss) Canceled [facility] [place] [facility] Work Phone: [phone] HLA-DP2 Ql (Bld/Tiss) Canceled [facility] [place] [facility] Work Phone: [phone] HLA-DQB1 High resolution Nom (Bld/Tiss) Canceled [facility] [place] [facility] Work Phone: [phone] HLA-DR+DQ Nom (Bld/Tiss) Canceled [facility] Work Phone: [phone] No Panel Informationon 05-30 SEE SEPARATE REPORT [facility] [place] [address] Work Phone: [phone] Comment on above: Test performed at [facility], 6th [address] [address] [place] [address] Canceled [facility] [place] [address] Work Phone: [phone] Comment on above: Test performed at [facility], 6th Floor [address] [place] [address] Office VIsit (Pre-Transplant Surgery)on 05-30-2023 Follow-up visit Diagnosis/Problems Assessed Pre-transplant evaluation for kidney transplant (V72.83) (Z01.818) Patient Discussion/Summary Impression: Kidney Transplant: evaluation Patient Discussion: I had a discussion with this patient regarding 1 year graft and patient survival statistics following renal transplantation for both living and donor allograft recipients. This data included [facility] data compared to National data readily available for review on https://www.SRTR.org. The patient also had attended the kidney transplant education class provided by the transplant institute. The difference between allograft function was discussed comparing living donor, KDPI 0-85%, and >85% kidneys. Further discussion included: -The transplant selection committee process. -The need for lifelong immunosuppressive therapy, and the side effects of these medications including the risk of infections, cancer, and lymphoma. -The wait list time approximately is 5 years or more for donor transplants and the statistical superiority of a living donor. - Using identified donors with risk criteria for transmission of infection -Potential transmission of infectious disease from any donors, as well as living donors. -The possibility of transmission of tumors and infections via the transplanted organ. -The inability to completely test for all potential harmful tumors or infectious agents. -The possibility of listing at multiple locations. Surgical complications including need for reoperation(s) including but not limited to: -Bleeding. -Repair of leaks. -Control of infection. -Possible kidney transplant removal. The medical complications including but not limited to: -. -Cardiac. -Pulmonary. -Infectious. -Neurologic. -Other Complications. We also discussed how the kidney transplant could function: -Non-function and possible kidney transplant removal within the first 3 to 6 months. -Delayed graft function (dialysis needed after transplant). -The potential of recurrence of kidney disease leading to kidney transplant graft loss. HEALTH SCREENING NEEDED: [] Colonoscopy - completed 11/24 (tubular adenoma rpt 11/27) Females: [x] Mammography [] Pap Smear - Done 11/22/19 IMAGING NEEDED: Age-based protocol imaging needed for transplant evaluation: Standard imaging: [x] Chest X-ray PA lateral Cross sectional imaging: [x] CT scan abdomen/pelvis to evaluate Aortoiliac vascular disease [] Kidney Ultrasound to evaluate for potential renal cell carcinoma Cardiovascular imaging: [x] Complete ECHO [x] Cardiac stress testing [x] CT calcium scoring Additional Imaging: Carotid US completed 03/26 < 50% stenosis bilateral I saw Ms. Bhatti in clinic for potential kidney transplantation evaluation. I believe she will be an excellent candidate for kidney transplantation from a surgical perspective pending the completion of her cardiac work up. Has a significant history of abdominal surgeries but none in direct vicinity of kidney implantation. Will need: Cardiology work up - ECHO, stress, CT card score CT ab/pelvis Mammogramdiscussed with the patient. By signing my name below, I, Julia harrell, attest that this documentation has been prepared under the direction and in the presence of Dr. Fontana. All medical record entries made by the Scribe were at my direction and personally dictated by me. I have reviewed the chart and agree that the record accurately reflects my personal performance of the history, physical exam, discussion and plan. Chief Complaint Kidney transplant surgical evaluation History of Present Illness Kidney Transplant Reason For Visit: Pre-Transplant. History of Present Illness Comments: Kidney transplant surgical evaluation I am seeing SANDY BHATTI at the referring provider's request for surgical suitability for renal transplant candidate listing at [facility]. History of Present Illness Comments: SANDY BHATTI is a 58 year old female with end stage renal disease secondary to type 2 diabetes mellitus for 30 years. She was diagnosed with chronic kidney disease in 2017 and began HD as outpatient in 2018. She HD MWF via RUE AVF. She has a past medical history of type 2 diabetes mellitus, CVA, steal syndrome, kidney stones, and hypothyroidism. Surgery: She had a lap appy c/b bowel perforation requiring colostomy. This was reversed in 2006 Open cholecystectomy LUE AVF s/p ligation RUE AVF Hysterectomy Ventral hernia repair Breast reduction . Review of Systems Constitutional: no fever and no chills. Eyes: no eye problems ENT: no ear symptoms and no nasal symptoms. Cardiovascular: no chest pain. Respiratory: no cough and no shortness of breath. Gastrointestinal: no constipation, no vomiting, no diarrhea and no nausea. Genitourinary: no dysuria. Musculoskeletal: no myalgias. Integumentary: (more content not included)... Normal [facility] Tobacco Screening.on 023 Adult depression screening assessment No [facility] Work Phone: Fall risk assessment a) No falls within the last year [facility] Work Phone: Tobacco use status [facility] b) No [facility] Work Phone: Transplant Recipient Theodore miller 05-30-2023 Transplant Recipient Assessment Assessment Visit Type: This is the initial visit for the patient. Accompanied by: Don, . Organ for transplant: kidney. Ethnicity: White: Not Specified/ Unknown. ADLs: Fully Independent. Instrumental ADLs: Fully Independent. Level of Activity: Active. DME: None. Knowledge of Health: Good, Kidney Disease, DM, HTN, Thyroid Disease. Why do you have end stage organ disease? DM. Knowledge of transplant / VAD: Patient is able to make an informed decision. Patient verbalizes understanding of transplant / VAD: risk of rejection, risk of infection, risk of complications and risk of . Patient verbalizes understanding of recovery and follow up from transplant / VAD regarding length of stay, verbalizes understanding of recovery and follow up from transplant / VAD regarding appointments, verbalizes understanding of recovery and follow up from transplant / VAD regarding labs and verbalizes understanding of recovery and follow up from transplant / VAD regarding rehabilitation. Patient has identified goals of transplant / VAD? yes, Pt shared her goal for transplant is to live longer. Any Potential Donors? None. Overall compliance: good. Compliance with medications: good, Pt takes 5 to 6 medications daily. Managed by: patient, Pt manages her medications independently and places them in measuring cups. Understanding of medication: good. Compliance with appointments: good. How does patient handle health problems? Pt shared she tries to relax. Kidney Dialysis: What Dialysis Center? [facility], Began: 2017, In Center M, W, F Treatment Attendance: good Treatment Time 3.5 hours . Fluids: Patient still urinates . Diet: Patient is compliant with renal restrictions and Patient is compliant with low sodium diet # of Binders: Consumes 1 binders per meal and consumes 3 meals per day Patient compliance with Binders: good. : no Education: Other: 10th grade , Patient is literate, Patient is computer literate, Patient has Internet access . Pt reported she was in special education in school. Patient's current employment: Not working disabled: . Will patient have paid status from employment during recovery? no. Spouse/SO current employment: part-time Will spouse/SO have paid status from employment during recovery? no. Other Sources of Income: SSD , Other: 's income Patient has no financial concerns Patient is able to meet current monthly expenses Primary Insurance: Self [facility] Dual Complete Plan Prescription Coverage: Copay cost per month: $0. : yes. How Long? 40 years. Describe Relationship: Good. Spouse/SO Name: Sahil. Age: 58. Health: Good. Other Caregiver Responsibilities: None. Children: # Biological: 0, # Adopted: 1 daughter. Child #1 Name: Salome. Age: 22. Health: Good. Lives: local. How Much Contact? daily. Raised By: both biological parents. Mother ? yes. Age? 70. Cause of : Pt cannot remember. Father ? yes. Age? 58. Cause of : Colon Cancer. Siblings: # Biological: 5 brothers (2 ), 2 sisters . Support AND Recovery Plan: Both primary and secondary supports are adequate. Primary Support Name: Sahil. Age: 58 Relationship to Patient: Spouse If employed, can they take time off work? yes. If so, is it paid time off? no. If not, will this impact your finances? no. Did they attend education classes? yes. Do they have other caregiver responsibilities (child or eldercare)? no. Do they have their own conditions which may prevent them from providing care for you? no. Are they available on short notice? yes. Are they reliable? yes. Are they responsible? yes. Are they able to understand and process new information? yes. Do they have reliable transportation or will you allow them to use you vehicle? yes. Are they currently involved in your care? yes. Secondary Support: Name: Dontae. Aal: 69'sRelationship to Patient: [id number] Can they take time off work? yes. If so, is it paid time off? yes. If not, will this impact your finances? no. Did they attend education classes? no. Do they have other caregiver responsibilities (child or eldercare)? no. Do they have their own conditions which may prevent them from providing care for you? no. Are they available on short notice? yes. Are they reliable? yes. Are they responsible? yes. Are they able to understand and process new information? yes. Do they have reliable transportation or will you allow them to use you vehicle? yes. Are they currently involved in your care? yes. Housing: Patient does have adequate housing, Owns home. Type of Home: ranch. Distance to [facility]: 2 hours. Pets: 2 dogs, 2 cats. Does Patient Feel Safe in Home? yes. Transportation: Patient does have adequate transportation. # Licensed Drivers in the Home: 3. Does Patient Drive? no. If not, why? Pt stated she never wanted to learn to how to drive. # Relia (more content not included)... Normal [facility] BRIEF OP NOTon 04-10-2023 BRIEF OP NOT HNO ID: [id number] Author: April Jeter MD Service: Vascular Surgery Author Type: Resident Type: Brief Op Note Filed: 04/10/2023 2:48 PM Note Text: BRIEF OPERATIVE / PROCEDURE NOTE LOG ID: [id number] Surgery/Procedure Date: 04/10/2023 Incision/Procedure Start Time: 1:58 PM Incision Close/Procedure End Time: 2:31 PM Surgeon(s)/Proceduralist(s ) and Sand Tester(s): Surgeon(s) and Role: * Medardo Rogel MD - Primary * April Jeter MD - Resident - Assisting No Additional Staff Procedure(s): PERC THROMBECTOMY/INFUSION FOR THROMBOLYSIS AV FISTULA,FLUORO GUIDED,INCLUSIVE OF RAD NIDIA: 22555 (CPT?) Fluoro time: 4.9 min Radiation dose/AK: 69.9 Radiation surface area/DAP: 12,800 Contrast (mL): 30 mL Anesthesia: Procedural Sedation ASA Class: ASA Class:: III Findings: 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 Medications: Continue Home meds Post-operative Plan of Care: -OK to use the graft for next dialysis session. - PLEASE REMOVE the STITCH BEFORE stick the graft. 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 POST-OP/POST-PROCEDURE DIAGNOSIS: Same as Preop SIGNATURE: April Jeter MD PATIENT NAME: Sandy Bhatti DATE: April 10, 2023 TIME: 2:36 PM Normal [facility] Basic metabolic 2000 panelon 04-10-2023 Anion gap [Moles/Vol] 11 mmol/L Normal 9-18 [facility] Comment on above: Order Comment: Speci men Type: BLOOD SPECIMENOrdering Facility: [facility] Address: [address] [address] Performed By: #### 2 4321-2 ####NEESES LABORATORYCLIA [id number] [place] [id number] [place] Calcium [Mass/Vol] 9.7 mg/dL Normal 8.5-10.2 [facility] Comment on above: Order Comment: Speci men Type: BLOOD SPECIMENOrdering Facility: [facility] Address: [address] [address] Performed By: #### 2 4321-2 ####NEESES LABORATORYCLIA [id number] [place] [address] [place] Chloride [Moles/Vol] 96 mmol/L Low 97-105 [facility] Comment on above: Order Comment: Speci men Type: BLOOD SPECIMENOrdering Facility: [facility] Address: [address] [place] [address] Performed By: #### 2 4321-2 ####NEESES LABORATORYCLIA [id number] [place] [id number] [place] CO2 [Moles/Vol] 32 mmol/L High 22-30 [facility] Comment on above: Order Comment: Speci men Type: BLOOD SPECIMENOrdering Facility: [facility] Address: [address] [place] [address] Performed By: #### 2 4321-2 ####NEESES LABORATORYCLIA [id number] [place] [id number] [place] Creatinine [Mass/Vol] 3.88 mg/dL High 0.58-0.96 [facility] Comment on above: Order Comment: Bethany reeves Type: BLOOD SPECIMENOrdering Facility: [facility] Address: [address] [address] Performed By: #### 2 4321-2 ####NEESES LABORATORYCLIA [id number] [place] [address] [place] ESTIMATED GLOMERULAR FILTRATION RATE 13 mL/min/1.73m??? Low >=60 [facility] Comment on above: Order Comment: Bethany reeves Type: BLOOD SPECIMENOrdering Facility: [facility] Address: [address] [address] Result Comment: Mary mated Glomerular Filtration Rate (eGFR) is calculated using the 2020 CKD-EPI creatinine equation. This equation utilizes serum creatinine, sex, and age as parameters. The creatinine assay has traceable calibration to isotope dilution-mass spectrometry. Refer to KDIGO guidelines for clinical interpretation. In patients with unstable renal function, e.g. those with acute kidney injury, the eGFR may not accurately reflect actual GFR. Performed By: #### 2 4321-2 ####NEESES LABORATORYCLIA [id number] [place] [address] [place] Glucose [Mass/Vol] 185 mg/dL High 74-99 [facility] Comment on above: Order Comment: Bethany reeves Type: BLOOD SPECIMENOrdering Facility: [facility] Address: [address] [address] Result Comment: The [place] Diabetes Association (ADA) provides guidance for cutoff values for fasting glucose and random glucose. The ADA defines fasting as no caloric intake for at least 8 hours. Fasting plasma glucose results between 100 to 125 [...] Standards of Medical Care in Diabetes 2016, [place] Diabetes Association. Diabetes Care. 2016.39(Suppl 1). Performed By: #### 2 4321-2 ####NEESES LABORATORYCLIA [id number] [place] [address] [place] Potassium [Moles/Vol] 4.5 mmol/L Normal 3.7-5.1 [facility] Comment on above: Order Comment: Speci men Type: BLOOD SPECIMENOrdering Facility: [facility] Address: [address] [place] [address] Performed By: #### 2 4321-2 ####NEESES LABORATORYCLIA [id number] [place] [address] [place] Sodium [Moles/Vol] 139 mmol/L Normal 136-144 [facility] Comment on above: Order Comment: Speci men Type: BLOOD SPECIMENOrdering Facility: [facility] Address: [address] [place] [address] Performed By: #### 2 4321-2 ####NEESES LABORATORYCLIA [id number] [address] [id number] [place] Urea nitrogen [Mass/Vol] 19 mg/dL Normal 7-21 [facility] Comment on above: Order Comment: Speci men Type: BLOOD SPECIMENOrdering Facility: [facility] Address: [address] [place] [address] Performed By: #### 2 4321-2 ####NEESES LABORATORYCLIA [id number] [place] [address] [place] ECG COMPLETEon 04-10-2023 ECG COMPLETE Ventricular Rate : 8 2 BPM Atrial Rate : 82 BPM P-R Interval : 172 ms QRS Duration : 133 ms Q-T Interval : 431 ms QTC Calculation(Bazett) : 504 ms Calculated P [place] : 49 degrees Calculated R [place] : -46 degrees Calculated T [place] : 106 degrees Sinus rhythm Probable left atrial enlargement Right bundle branch block LVH with IVCD and secondary repol abnrm Abnormal ECG Confirmed by MARCO FRANCE MD ([id number]) on 04/10/2023 4:48:17 PM NAME : SANDY BHATTI PID : [id number] : 1965 Gender : Female Race : ORD : [id number] Procedure Date : Apr 10 2023 12:36:02 Edit Date : Apr 10 2023 16:48:18 Diagnosis: Sinus rhythm Probable left atrial enlargement Right bundle branch block LVH with IVCD and secondary repol abnrm Abnormal ECG Confirmed by MARCO FRANCE MD ([id number]) on 04/10/2023 4:48:17 PM Test Reason : Pre OP Location : 400 : EKG 213 Overread By : MARCO FRANCE MD Edited By : MARCO FRANCE MD Referred By : MEDARDO ROGEL Acquired by : [id number], Normal [facility] HISTORY PHYSICALon 3 HISTORY PHYSICAL HNO ID: [id number] Author: Inna Hylton APRN.HIGH FREQUENCY MILL OPERATOR, DNP Service: Cardiovascular Medicine Author Type: Nurse Practitioner Type: HANDP Filed: 04/10/2023 12:54 PM Note Text: HISTORY AND PHYSICAL EXAMINATION SERVICE DATE: 04/10/2023 SERVICE TIME: 12:32 PM PROCEDUREALIST: Surgeon(s) and Role: * Medardo Rogel MD - Primary PRIMARY CARE PHYSICIAN: Maldonado Raza MD SUBJECTIVE CHIEF COMPLAINT: ESRD HPI: This is a 58 year old female who presents for: PERC THROMBECTOMY/INFUSION FOR THROMBOLYSIS AV FISTULA,FLUORO GUIDED,INCLUSIVE OF RAD NIDIA - Right PAST MEDICAL HISTORY: PAST MEDICAL HISTORY Diagnosis Date Acute kidney failure (HCC) 01/14/2018 Acute respiratory failure (HCC) Anxiety Arterial steal syndrome (HCC) 12/2018 Left AVF Calculus of ureter 06/12/2007 CKD (chronic kidney disease) stage V requiring chronic dialysis (HCC) 03/01/2018 Dr. Pendleton, nephrology. Constipation Depression 09/04/2006 GERD (gastroesophageal reflux disease) Hemorrhoids HTN (hypertension) 09/04/2001 Hyperlipidemia 09/04/1999 Hypertrophic cardiomyopathy (HCC) Proteinuria 06/14/2013 Renal colic 06/12/2007 Steal syndrome dialysis vascular access (HCC) 05/17/2019 Recent increased left arm swelling, which was not previously present. She had an intervention in January on the mid subclavian vein for outflow stenosis. Her fistula is patent and working well. Assessment: 05/16/19 LUE DRIL (proximal brachial to distal brachial artery bypass with RLE rGSV - LUE fistula site c/d/i, +thrill/bruit, radial pulse palpable - RLE Thyroid disorder Tubular adenoma of colon 11/15/2022 Type II or unspecified type diabetes mellitus without mention of complication, not stated as uncontrolled 09/04/1985 VT (ventricular tachycardia) (HCC) 05/17/2019 History: Per patient, has history of excited rhythm. Sees a housing quality standard inspector in [place], last seen in January 2019. No concerns. She will continue to follow up with them. Assessment: Ventricular tachycardia intermittently post-op with HR up to 110s. No chest pain or SOB. Troponins sent to monitor. Labs WNL. ECG completed showing BBB (has had on intermittent previous ECG). - 05/17/19 repeat ECG back to PAST SURGICAL HISTORY: PAST SURGICAL HISTORY Procedure Laterality Date APPENDECTOMY 1992 AV ANASTOMIES OPEN;BY BASILIC VEIN WINN Right 04/20/2020 transpose basilic vein fistula, R arm AV FISTULA OR GRAFT VENOUS Left 10/04/2017 AV FISTULA OR GRAFT VENOUS Left 09/20/2018 redo, failure to mature AV FISTULA OR GRAFT VENOUS Right 04/21/2021 BOWEL RESECTION HX 2005 CHOLECYSTECTOMY 1984 Cholecystectomy COLONOSCOPY SCREENING 11/15/2022 COLOSTOMY/SKIN LEVEL CECOSTOMY 2007 [id number], reversed 2006 CREATION OF AVF, PERCUTANEOUS USING MAGNETIC-GUIDED ARTERIAL AND VENOUS CATHETERS AND RADIOFREQUENCY ENERGY Right 11/14/2019 RIGHT AVF stage I EXPLORATORY LAPAROTOMY CELIOTOMY W/WO BIOPSY SPX 2006 Laparotomy, exp IR VENOUS FISTULAGRAM Left 01/22/2019 Left SC balloon PAST SURGICAL HISTORY OF Left 05/16/2019 LUE DRSOILA (proximal brachial to distal brachial artery bypass with RLE rGSV PAST SURGICAL HISTORY OF Left Cataract removed REDUCTION OF LARGE BREAST 1989 SALPINGECTOMY OR OOPHERECTOMY-ECTOPIC 1985 SLING OPER STRES INCONTINENCE 1998 TOTAL ABDOMINAL HYSTERECT W/WO RMVL TUBE OVARY 1991 Hysterectomy, RUSSELL FAMILY HISTORY: FAMILY HISTORY Problem Relation Age of Onset Diabetes Mother Coronary Artery Disease Mother COPD Mother dec. age 79 Cancer Mother lung cancer Colon Cancer Father at age 52 Diabetes Sister Hypertension Sister Kidney Disease Brother other (Heart condition) Brother Diabetes Brother Cancer Brother lung cancer Coronary Artery Disease Brother dec. [place] 57 y.o. No Known Problems Maternal Grandmother No Known Problems Maternal Grandfather No Known Problems Paternal Grandmother No Known Problems Paternal Grandfather SOCIAL HISTORY: Social History Tobacco Use Smoking status: Former Packs/day: 1.50 Years: 3.00 Total pack years: 4.50 Types: Cigarettes Quit date: 09/04/2005 Years since quittin.6 Smokeless tobacco: Never Tobacco comments: quit march 10 Vaping Use Vaping Use: Never used Substance Use Topics Alcohol use: No Drug use: No MEDICATIONS: Prior to Admission Medications amLODIPine (NORVASC) 5 mg tablet, Take 1 tablet by mouth once daily., Disp: 90 tablet, Rfl: 1 insulin aspart U-100 (NOVOLOG FLEXPEN U-100 INSULIN) 100 unit/mL (3 mL), Inject 8 Units subcutaneously three times daily before meals. Add 1 unit for each 50 mg/dl above 150, Disp: 15 mL, Rfl: 5 cloNIDine HCl (CATAPRES) 0.3 mg tablet, Take 1 tablet by mouth daily at bedtime., Disp: 90 tablet, Rfl: 1 atorvastatin (LIPITOR) 40 mg tablet, Take 1 tablet by mouth daily at bedtime., Disp: 90 tablet, Rfl: 1 levothyroxine (SYNTHROID) 125 mcg tablet, Take 1 tablet by mouth once daily. Take on empty stomach (more content not included)... Normal [facility] NURSING PROGon 04-10-2023 NURSING PROG HNO ID: [id number] Author: Pam Bartlett RN Service: Nursing Author Type: Registered Nurse Type: Nursing Progress Note Filed: 04/10/2023 3:45 PM Note Text: Nursing Progress Note Topic of Note: post procedure PATIENT NAME: Sandy Bhatti Patient Location: JIGGER OPERATOR POOL/ JIGGER OPERATOR POOL Room: JIGGER OPERATOR POOL ( INVASIVE CARDIOLOGY) Report received from Lakshmi Hernandez RN at bedside. Pt to ICRR s/p RUE fistulagram. Site WNL - no oozing, bleeding, or hematomas. Coverderm dressing to site. +thrill and bruit, distal radial pulse palpable. Call light in reach. Will continue to monitor. 1522 D/C instructions reviewed with pt AND Warren, verbalized understanding. All questions answered. Call light in reach. Will continue to monitor. 1531 Pt ambulated in the hallway with standby staff assistance, steady gait. Denies any dizziness/lightheadedness. Site remains free of bleeding and hematoma with movement AND ambulation. 1545 Patient d/c home via w/c in stable condition. All belongings returned. Warren yan. This note was completed by: Pam Bartlett [facility] NURSING PROG HNO ID: [id number] Author: Lakshmi Hernandez, RN Service: Nursing Author Type: Registered Nurse Type: Nursing Progress Note Filed: 04/10/2023 2:58 PM Note Text: Nursing Progress Note Topic of Note: POST PROCEDURE PATIENT NAME: Sandy Bhatti Patient Location: JIGGER OPERATOR POOL/ JIGGER OPERATOR POOL Room: JIGGER OPERATOR POOL ( INVASIVE CARDIOLOGY) 1445 S/p RUE fistulagram. See intra op notes for meds given during procedure. RUE dressing CDI. Site free from bleeding and hematoma. + Bruit and thrill. + R radial pulse. Movement and sensation intact to RUE. Tele-SR. Family at bedside. Pt provided lunch, tolerating well. This note was completed by: Lakshmi Hernandez [facility] OPERATIVE NOon 04-10-2023 OPERATIVE NO HNO ID: [id number] Author: Medardo Rogel MD Service: Vascular Surgery Author Type: Physician Type: Operative Report Filed: 04/22/2023 10:46 AM Note Text: OPERATIVE/PROCEDURE REPORT LOG ID: [id number] Surgery/Procedure Date: 04/10/2023 Incision/Procedure Start Time: 1:58 PM Incision Close/Procedure End Time: 2:31 PM Surgeon(s)/Proceduralist(s ) and Sand Tester(s): Surgeon(s) and Role: * Medardo Rogel MD - Primary * April Jeter MD - Resident - Assisting Procedure(s): Right upper extremity fistulogram Balloon angioplasty of right upper extremity arteriovenous graft juxtavenous anastomosis (8mm) Balloon angioplasty of right subclavian and innominate veins (8mm AND 10mm) Anesthesia: Procedural Sedation Operative indications: 58 year old female with history of end stage renal disease with a right brachial artery - brachial vein loop arteriovenous graft with a right brachial vein to axillary vein jump graft who presents for a right upper extremity fistulogram due to high venous pressures during dialysis and arm swelling. Procedure details: The patient was taken to the roving tester laboratory and laid supine on the table. A huddle was performed with the surgery and nursing teams to confirm patient name, medical record number, date of , allergies, and procedure. Under continuous oxygen and monitoring, IV analgesia and sedation were given. Moderate sedation consisting of continuous ECG, pulse oxymetry, cardiopulmonary monitoring, IV analgesia and sedation was performed by the nurse, overseen by the performing physician(s). The right upper extremity was prepped and draped in the usual sterile fashion. A surgical time-out was performed. The right arm arteriovenous graft was accessed toward the central veins using local anesthesia and a micropuncture system. Through the transitional sheath contrast was injected to perform a fistulagram with DSA runs visualizing the arteriovenous graft from the tip of the sheath through the central veins. This demonstrated a widely patent arteriovenous graft with approximately 50% stenosis of the juxtavenous anastomosis to the right axillary vein. There was a subsequent high grade stenosis of the right subclavian vein and greater than 50% stenosis of the right innominate vein. Heparin was administered, and re-dosed, as needed. Through the transitional sheath, an 0.035 stiff angled Glidewire was advanced centrally. The transitional sheath was exchanged for a short 7 Fr sheath over the wire. Using a KMP catheter and the stiff angled Glidewire, the stenoses were crossed, and the wire was advanced into the inferior vena cava. Over the wire, an 8mm x 60mm balloon was used to angioplasty the right innominate vein stenosis, right subclavian vein stenosis, and then right juxta-venous anastomotic stenosis. Post-angioplasty angiography demonstrated a less than 20% residual juxta venous anastomotic stenosis but still a significant right subclavian and innominate vein stenosis. Therefore, the 8mm balloon was exchanged for a 10mm x 60mm balloon over the wire. The right innominate and subclavian vein stenoses were angioplastied to rated burst pressure. There was now a less than 30% residual stenosis from the initial angiogram. While compressing the graft, the inflow to the graft was imaged and shown to be widely patent. Completion angiogram revealed a technically satisfactory result with significantly improved thrill throughout the entire fistula, no pulsatility. The wire and sheath were removed and hemostasis was achieved with a 3-0 prolene suture and pressure. The patient was transferred to the recovery area in stable condition. ANGIOGRAPHIC INTERPRETATION: Widely patent right brachial artery and arteriovenous graft with jump graft to the right axillary vein. Approximately 50% stenosis of the graft juxta-venous anastomosis. There was a subsequent high grade stenosis of the right subclavian vein and greater than 50% stenosis of the right innominate vein. Pre-Op/Pre-Procedure Diagnosis: End stage renal disease; malfunction of right upper extremity arteriovenous graft Post-Op/Post-Procedure Diagnosis: Same Estimated Blood Loss: 5 ml Specimens: None Implantable Devices: None Drains: None Complications: None I/primary surgeon/proceduralist performed the procedure with assistance. Medardo Rogel MD [facility] .Auto Diffon 02-01-2023 Basophil, Absolute 0.0 10 3/mcL Normal 0.0-0.3 [facility] ([place]) Comment on above: Performed By: #### LOTUS KENNY ANEU #### [address] [address] Basophils/100 WBC (Bld) 0.6 % Normal 0.0-2.5 [facility] [place] Comment on above: Performed By: #### LOTUS KENNY ANEU #### [address] [address] Eosinophil, Absolute 0.0 10 3/mcL Normal 0.0-0.7 [facility] ([place]) Comment on above: Performed By: #### LOTUS KENNY ANEU #### [address] [address] Eosinophils/100 WBC (Bld) 0.9 % Normal 0.0-6.0 [facility] [place] Comment on above: Performed By: #### LOTUS KENNY ANEU #### [address] [address] Lymphocyte, Absolute 0.6 10 3/mcL Low 0.9-4.3 [facility] ([place]) Comment on above: Performed By: #### LOTUS KENNY ANEU #### [address] [address] Lymphocytes/100 WBC (Bld) 12.1 % Low 20.0-40.0 [facility] ([place] Comment on above: Performed By: #### LOTUS KENNY ANEU #### [address] [address] Monocyte, Absolute 0.4 10 3/mcL Normal 0.1-1.4 [facility] ([place]) Comment on above: Performed By: #### C LOTUS NUÑEZ, ANEU #### [address] [address] Monocytes/100 WBC (Bld) 8.0 % Normal 2.0-13.0 [facility] ([place]) Comment on above: Performed By: #### C LOTUS NUÑEZ, ANEU #### [address] [address] Neutrophils/100 WBC (Bld) 78.4 % High 50.0-75.0 [facility] [place] Comment on above: Performed By: #### C LOTUS NUÑEZ, ANEU #### [address] [address] .GFRon 02-01-2023 GFR 16 ml/min/1.73sqm Normal [facility] ([place]) Comment on above: Result Comment: GFR Population mean for , [...] 15 mL/min/1.73 square meters Performed By: #### B MP, GFR #### [address] [address] GFR Non- 13 ml/min/1.73sqm Normal [facility] ([place] Comment on above: Result Comment: GFR Population mean for , [...] 15 mL/min/1.73 square meters Performed By: #### B MP, GFR #### [address] [address] .NEUABSon 02-01-2023 Neutrophil, Absolute 3.9 10 3/mcL Normal 2.3-8.1 [facility] ([place]) Comment on above: Performed By: #### C BC, ADIFF, ANEU #### [address] [address] BMPon 02-01-2023 BUN/Creatinine Ratio 5.7 ratio Low 10.0-22.0 [facility] ([place]) Comment on above: Performed By: #### B MP, GFR #### [address] [address] Calcium [Mass/Vol] 9.2 mg/dL Normal 8.7-10.4 [facility] ([place]) Comment on above: Performed By: #### B MP, GFR #### [address] [address] Chloride [Moles/Vol] 100 mmol/L Normal 98-110 [facility] ([place]) Comment on above: Performed By: #### B MP, GFR #### [address] [address] CO2 [Moles/Vol] 36 mmol/L High 22-32 [facility] [place] Comment on above: Performed By: #### B MP, GFR #### [address] [address] Creatinine [Mass/Vol] 3.52 mg/dL High 0.50-1.20 [facility] ([place]) Comment on above: Performed By: #### B MP, GFR #### [address] [address] Electrolyte Balance 2.0 mEq/L Low 4.0-15.0 [facility] ([place] Comment on above: Performed By: #### B MP, GFR #### [address] [address] Glucose [Mass/Vol] 223 mg/dL High 70-110 [facility] ([place] Comment on above: Performed By: #### B MP, GFR #### [address] [address] Potassium [Moles/Vol] 4.2 mmol/L Normal 3.5-5.0 [facility] ([place]) Comment on above: Result Comment: Spec imen slightly hemolyzed. Performed By: #### B MP, GFR #### [place] [id number] Sodium [Moles/Vol] 138 mmol/L Normal 136-145 [facility] ([place] Comment on above: Performed By: #### B MP, GFR #### [place] [id number] Urea nitrogen [Mass/Vol] 20.0 mg/dL Normal 8.0-22.0 [facility] ([place] Comment on above: Performed By: #### B MP, GFR #### [address] [address] CBCon 02-01-2023 Erythrocyte distribution width (RBC) [Ratio] 13.5 % Normal 11.5-15.5 [facility] [place] Comment on above: Performed By: #### LOTUS KENNY ANEU #### [address] [address] Hematocrit (Bld) [Volume fraction] 28.4 % Low 34.0-46.0 [facility] [place] Comment on above: Performed By: #### LOTUS KENNY ANEU #### [address] [address] Hgb 9.6 G/dL Low 12.0-16.0 [facility] [place] Comment on above: Performed By: #### LOTUS KENNY, ANEU #### [address] [address] MCH (RBC) [Entitic mass] 32.5 pg Normal 27.0-33.0 [facility] [place] Comment on above: Performed By: #### C LOTUS NUÑEZ ANEU #### [address] [address] MCHC 33.7 G/dL Normal 32.0-36.0 [facility] [place] Comment on above: Performed By: #### C LOTUS NUÑEZ ANEU #### [address] [address] MCV (RBC) [Entitic vol] 96.5 fL Normal 80.0-99.0 [facility] [place] Comment on above: Performed By: #### LOTUS KENNY ANEU #### [place] [address] Platelet 148 10 3/mcL Low 150-450 [facility] [place] Comment on above: Performed By: #### LOTUS KENNY ANEU #### [address] [address] Platelet mean volume (Bld) [Entitic vol] 7.5 fL Normal 6.6-10.5 [facility] [place] Comment on above: Performed By: #### C LOTUS NUÑEZ ANEU #### [place] [address] RBC 2.94 10 6/mcL Low 4.10-5.30 [facility] [place] Comment on above: Performed By: #### LOTUS KENNY ANEU #### [address] [address] WBC 5.0 10 3/mcL Normal 4.5-10.8 [facility] [place] Comment on above: Performed By: #### LOTUS KENNY ANEU #### [address] [address] LABORATORYOrdered By: SYSTEM SYSTEM on 02-01-2023 Basophils (Bld) [#/Vol] 0.0 103/mcL Invalid Interpretation Code 0.0 - 0.3 10^3/mcL AH Workflow SS Basophils/100 WBC (Bld) 0.6 % Invalid Interpretation Code 0.0 - 2.5 % AH Workflow SS Calcium [Mass/Vol] 9.2 mg/dL Invalid Interpretation Code 8.7 - 10.4 mg/dL ADM SS Chloride [Moles/Vol] 100 mmol/L Invalid Interpretation Code 98 - 110 mEq/L ADM SS CO2 [Moles/Vol] 36 mmol/L Invalid Interpretation Code 22 - 32 mEq/L ADM SS Creatinine [Mass/Vol] 3.52 mg/dL Invalid Interpretation Code 0.50 - 1.20 mg/dL ADM SS Electrolyte Balance 2.0 mEq/L Invalid Interpretation Code 4.0 - 15.0 mEq/L ADM SS Eosinophils (Bld) [#/Vol] 0.0 103/mcL Invalid Interpretation Code 0.0 - 0.7 10^3/mcL Workflow SS Eosinophils/100 WBC (Bld) 0.9 % Invalid Interpretation Code 0.0 - 6.0 % Workflow SS Erythrocyte distribution width (RBC) [Ratio] 13.5 % Invalid Interpretation Code 11.5 - 15.5 % Workflow SS GFR/1.73 sq M.predicted among blacks MDRD (S/P/Bld) [Vol rate/Area] 16 ml/min/1.73sqm Invalid Interpretation Code Chemistry S GFR/1.73 sq M.predicted among non-blacks MDRD (S/P/Bld) [Vol rate/Area] 13 ml/min/1.73sqm Invalid Interpretation Code Chemistry S Glucose [Mass/Vol] 223 mg/dL Invalid Interpretation Code 70 - 110 mg/dL ADM SS Hematocrit (Bld) [Volume fraction] 28.4 % Invalid Interpretation Code 34.0 - 46.0 % AH Workflow SS Hemoglobin (Bld) [Mass/Vol] 9.6 G/dL Invalid Interpretation Code 12.0 - 16.0 G/dL Workflow SS Lymphocytes (Bld) [#/Vol] 0.6 103/mcL Invalid Interpretation Code 0.9 - 4.3 10^3/mcL Workflow SS Lymphocytes/100 WBC (Bld) 12.1 % Invalid Interpretation Code 20.0 - 40.0 % Workflow SS MCH (RBC) [Entitic mass] 32.5 pg Invalid Interpretation Code 27.0 - 33.0 pg AH Workflow SS MCHC 33.7 G/dL Invalid Interpretation Code 32.0 - 36.0 G/dL Workflow SS MCV (RBC) [Entitic vol] 96.5 fL Invalid Interpretation Code 80.0 - 99.0 fL AH Workflow SS Monocytes (Bld) [#/Vol] 0.4 103/mcL Invalid Interpretation Code 0.1 - 1.4 10^3/mcL Workflow SS Monocytes/100 WBC (Bld) 8.0 % Invalid Interpretation Code 2.0 - 13.0 % AH Workflow SS Neutrophils (Bld) [#/Vol] 3.9 103/mcL Invalid Interpretation Code 2.3 - 8.1 10^3/mcL Workflow SS Neutrophils/100 WBC (Bld) 78.4 % Invalid Interpretation Code 50.0 - 75.0 % Workflow SS Platelet mean volume (Bld) [Entitic vol] 7.5 fL Invalid Interpretation Code 6.6 - 10.5 fL Workflow SS Platelets (Bld) [#/Vol] 148 103/mcL Invalid Interpretation Code 150 - 450 10^3/mcL Workflow SS Potassium [Moles/Vol] 4.2 mmol/L Invalid Interpretation Code 3.5 - 5.0 mEq/L ADM SS Comment on above: Result Comment: Spec imen slightly hemolyzed. RBC (Bld) [#/Vol] 2.94 106/mcL Invalid Interpretation Code 4.10 - 5.30 10^6/mcL Workflow SS Sodium [Moles/Vol] 138 mmol/L Invalid Interpretation Code 136 - 145 mEq/L ADM SS Urea nitrogen [Mass/Vol] 20.0 mg/dL Invalid Interpretation Code 8.0 - 22.0 mg/dL ADM SS Urea nitrogen/Creatinine [Mass ratio] 5.7 ratio Invalid Interpretation Code 10.0 - 22.0 ratio AH ADM SS WBC (Bld) [#/Vol] 5.0 103/mcL Invalid Interpretation Code 4.5 - 10.8 10^3/mcL Workflow SS LABORATORYOrdered By: Anjel White on 02-01-2023 INR Coag (PPP) [Relative time] 0.8 {INR} Invalid Interpretation Code AH Auto Coag SS PT Coag (PPP) [Time] 9.8 s Invalid Interpretation Code 9.0 - 14.8 seconds AH Auto Coag SS PROon 05-31-2023 INR Coag (PPP) [Relative time] 0.8 {INR} Normal [facility] ([place] Comment on above: Result Comment: The [employer] (CHEST, 1992, 102:312S-25S) recommended therapeutic range for oral anticoagulant therapy is: LOW RISK: Prophylaxis of venous thrombosis INR: 2.0-3.0 Treatment of pulmonary embolism 2.0-3.0 Prevention of systemic embolism 2.0-3.0 HIGH RISK: Mechanical prosthetic valves 2.5-3.5 Performed By: #### P RO #### [address] [address] PT Coag (PPP) [Time] 9.8 s Normal 9.0-14.8 [facility] ([place]) Comment on above: Result Comment: Effe ctive 03/18/08, Protime results may be affected by some antibiotics (i.e. Ciprofloxacin, Azithromycin, Bactrim) which may potentiate the action of oral anticoagulants, with further increases in Protime/INR. Performed By: #### P RO #### [address] [address] ANES POSTPROC EVALon 023 ANES POSTPROC EVAL HNO ID: [id number] Author: Nikhil Dinero MD Service: Anesthesiology Author Type: Anesthesiologist Type: Anesthesia Postprocedure Evaluation Filed: 11/15/2022 10:50 AM Note Text: POST ANESTHESIA EVALUATION NOTE : 1965 Procedure Summary Date: 11/15/22 Room / Location: [facility] Endoscopy Anesthesia Start: 909 Anesthesia Stop: 1000 Procedure: COLONOSCOPY SCREENING Diagnosis: Special screening for malignant neoplasms, colon Pre-op evaluation (Screening in patient at increased risk: FH of 1st-deg relative with colon cancer) Scheduled Providers: Ge Fuller MD; Kaitlynn Castaneda APRN.WINDING LATHE OPERATOR; Nikhil Dinero MD Responsible Provider: Nikhil Dinero MD Anesthesia Type: MAC ASA Status: 3 Anesthesia Type: MAC Last Vitals Vitals Value Taken Time BP 177/77 11/15/22 1031 Temp 36.3 ?C (97.3 ?F) 11/15/22 1000 HR SpO2 71 11/15/22 1000 Resp 14 11/15/22 1032 SpO2 100 % 11/15/22 1032 Vitals shown include unvalidated device data. Post Anesthesia Patient Status Patient Evaluation: PACU. PACU/ICU Patient Condition: stable. Anticipated Disposition: phase 2 then home. Neurological Status: aware and responsive. Pulmonary Status: breathing comfortably on room air Airway Control: returned to baseline unsupported. Cardiovascular Status: stable. Pain Management: clinically adequate - multimodal analgesia pain management approach Postoperative Hydration: acceptable. Intraoperative Events: no significant anesthesia events Post Operative Nausea/Vomiting Status: no significant post operative nausea or vomiting Recommendation: continue current plan of care. Anesthesia Observations No Documentation SIGNATURE: Nikhil Dinero MD PATIENT NAME: Sandy Bhatti DATE: November 15, 2022 TIME: 10:50 AM CSN: [id number] Normal [facility] ANES PRE-OPon 11-15-2022 ANES PRE-OP HNO ID: [id number] Author: Nikhil Dinero MD Service: Anesthesiology Author Type: Anesthesiologist Type: Anesthesia Preprocedure Evaluation Filed: 11/15/2022 8:13 AM Note Text: ANESTHESIOLOGY DAY OF SURGERY NOTE : 1965 Procedure Information Date/Time: 11/15/22 0900 Scheduled providers: Ge Fuller MD; Kaitlynn Castaneda APRN.WINDING LATHE OPERATOR; Nikhil Dinero MD Procedure: COLONOSCOPY SCREENING Location: [facility] Endoscopy Estimated body mass index is 26.39 kg/m? as calculated from the following: Height as of this encounter: 160 cm (5' 3). Weight as of this encounter: 67.6 kg (149 lb). Most recent hematocrit and potassium results: Hematocrit 36.1 05/02/2022 Potassium 5.2 09/13/2022 Relevant Problems CARDIO (+) ASCVD (arteriosclerotic cardiovascular disease) (+) HTN (hypertension) (+) Steal syndrome dialysis vascular access (HCC) ENDO (+) Controlled type 2 diabetes mellitus without complication, with long-term current use of insulin ([facility]) (+) Hypothyroid -RENAL (+) ESRD (end stage renal disease) (HCC) (+) ESRD on dialysis ([facility]) I - PHYSICAL EVALUATION AIRWAY Patient intubated: No. Tracheostomy tube not present Mallampati: II. TM distance: >3 FB. Neck ROM: full ROM without neurological symptoms. Mouth opening: adequate. Short neck: no. Thick neck: no DENTAL Dental findings: teeth intact. Additional exam findings: no II - ANESTHESIA PLAN ASA Score: 3 Anesthetic Plan: MAC The patient is not a current smoker. Beta Chris Monitoring Plan Monitoring plan: standard ASA. Post Procedure Analgesic Plan Postoperative analgesic plan: multimodal analgesia. Informed Consent Anesthetic risks, benefits, alternatives, personnel and consent discussed: yes. Patient / Responsible Green Party agrees to proceed: yes Patient / Surrogate agrees to blood products: blood products not planned DNR status not reviewed with patient and/or family prior to surgery. Significant changes in the patient condition since the History and Physical, not otherwise documented in primary service progress note: no. Potential Anesthesia issues that may suggest increased risk of complications or contraindication to planned procedure: none. Vitals Value Taken Time BP 162/74 11/15/22 0810 Pulse Resp 18 11/15/22 0810 Temp 36 ?C (96.8 ?F) 11/15/22 0810 SpO2 100 % 11/15/22 0810 Outpatient Medications as of 11/15/2022 Medication Sig - insulin detemir U-100 (LEVEMIR FLEXTOUCH U-100 INSULIN) 100 unit/mL (3 mL) injection pen Inject 48 Units subcutaneously daily at bedtime. - cloNIDine HCl (CATAPRES) 0.3 mg tablet Take 1 tablet by mouth daily at bedtime. - SUMAtriptan (IMITREX) 50 mg tablet Take one tablet by mouth at onset of migraine. May repeat in 2 hours if ineffective - insulin needles, DISPOSABLE, (PEN NEEDLE) 31 gauge x 5/16 Use one needle per dose. one per day. - atorvastatin (LIPITOR) 40 mg tablet Take 1 tablet by mouth daily at bedtime. - levothyroxine (SYNTHROID) 125 mcg tablet Take 1 tablet by mouth once daily. Take on empty stomach. For Thyroid - Insulin Syringe-Needle U-100 (BD INSULIN SYRINGE ULTRA-FINE) 1 mL 29 gauge x 1/2 Use twice daily as directed. - lisinopril (ZESTRIL, PRINIVIL) 40 mg tablet Take 1 tablet by mouth once daily. - amLODIPine (NORVASC) 5 mg tablet Take 1 tablet by mouth once daily. - insulin aspart U-100 (NOVOLOG FLEXPEN U-100 INSULIN) 100 unit/mL (3 mL) Inject 8 Units subcutaneously three times daily before meals. Add 1 unit for each 50 mg/dl above 150 - ferric citrate 210 mg iron tab Take 1 tablet by mouth once daily. - docusate sodium (COLACE) 100 mg capsule Take 1 capsule by mouth twice daily as needed for Constipation. - nitroglycerin sublingual (NITROQUICK) 0.4 mg SL tablet Dissolve 0.4 mg under the tongue every 5 minutes as needed. - NEPHRO-PETEY 0.8 mg tab Take 1 tablet by [...] 1 tablet by mouth once daily. - peg 3350-Electrolytes (GOLYTELY) 236-22.74-6.74 -5.86 gram suspension Refer to printed prep instructions from your provider. Facility-Administered Medications as of 11/15/2022 Medication Dose Route Frequency - lactated ringers iv infusion 30 mL/hr INTRAVENOUS CONTINUOUS I have interviewed and examined the patient. I have reviewed the medical record and/or the pre-anesthesia evaluation, pertinent labs, and test results. This contains updated information obtained within 48 hours of Surgery/Procedure. SIGNATURE: Nikhil Dinero MD PATIENT NAME: Sandy Bhatti DATE: November 15, 2022 TIME: 8:13 AM CSN: [id number] Normal [facility] COLONOSCOPY SCREENINGon 11-02 [facility] Colonoscopyon 11-15-2022 Colonoscopy [facility] Gastrointestinal Endoscopy Patient Name: Sandy Bhatti Procedure Date: 11/15/2022 8:53 AM Date of : 1965 Admit Type: Outpatient Age: 57 Room: [facility] Gender: Female Note Status: Finalized Attending MD: Ge Fuller MD Procedure: Colonoscopy Indications: Screening in patient at increased risk: Family history of 1st-degree relative with colorectal cancer Providers: Ge Fuller MD Patient Profile: This is a 57 year old female. Refer to note in patient chart for documentation of history and physical. Last Colonoscopy: 2005. Referring Physician: Lisa Heredia (pa) (Referring MD) Medicines: See the Anesthesia note for documentation of the administered medications Complications: No immediate complications. Estimated blood loss: Minimal. Requesting Provider: Procedure: Pre-Anesthesia Assessment: - Prior to the procedure, a History and Physical was performed, and patient medications and allergies were reviewed. The patient's tolerance of previous anesthesia was also reviewed. The risks and benefits of the procedure and the sedation options and risks were discussed with the patient. All questions were answered, and informed consent was obtained. Prior Anticoagulants: The patient has taken no anticoagulant or antiplatelet agents except for aspirin. ASA Grade Assessment: III - A patient with severe systemic disease. After reviewing the risks and benefits, the patient was deemed in satisfactory condition to undergo the procedure. After I obtained informed consent, the scope was passed under direct vision. Throughout the procedure, the patient's blood pressure, pulse, and oxygen saturations were monitored continuously. The Colonoscope was introduced through the anus and advanced to the cecum, identified by appendiceal orifice and ileocecal valve. The colonoscopy was performed with difficulty due to a tortuous colon. The patient tolerated the procedure well. The quality of the bowel preparation was poor. Scope Withdrawal Time: 0 hours 20 minutes 46 seconds Moderate Sedation: MAC anesthesia was administered by the anesthesia team. Total Procedure Duration: 0 hours 37 minutes 8 seconds Findings: The perianal and digital rectal examinations were normal. A small polyp was found in the cecum. The polyp was sessile. The polyp was removed with a hot snare. Resection and retrieval were complete. A two small polyps were found in the transverse colon. The polyps was sessile. The polyps were removed with a jumbo cold forceps. Resection and retrieval were complete. Impression: - One small polyp in the cecum, removed with a hot snare. Resected and retrieved. - One small polyp in the transverse colon, removed with a jumbo cold forceps. Resected and retrieved. Recommendation: - Await pathology results. - Patient has a contact number available for emergencies. The signs and symptoms of potential delayed complications were discussed with the patient. Return to normal activities tomorrow. Written discharge instructions were provided to the patient. - Resume previous diet. - Continue present medications. - Await pathology results. - Repeat colonoscopy in 3 years for surveillance. Poor prep! - Return to nurse practitioner in 1 week. - Resume previous antiplatelet medication today at prior dose. Procedure Code(s): --- Professional --- 46445, Colonoscopy, flexible; with removal of tumor(s), polyp(s), or other lesion(s) by snare technique 29546, 59, Colonoscopy, flexible; with biopsy, single or multiple Diagnosis Code(s): --- Professional --- Z12.11, Encounter for screening for malignant neoplasm of colon Z80.0, Family history of malignant neoplasm of digestive organs D12.0, Benign neoplasm of cecum D12.3, Benign neoplasm of transverse colon (hepatic flexure or splenic flexure) CPT copyright 2020 [employer]. All rights reserved. The codes documented in this report are preliminary and upon casting operator review may be revised to meet current compliance requirements. Attending Participation: I personally performed the entire procedure. Scope In: 9:17:14 AM Scope Out: 9:54:22 AM MD Ge Allen MD 11/15/2022 9:59:28 AM This report has been signed electronically by Ge Fuller MD Number of Addenda: 0 Note Initiated On: 11/15/2022 8:53 AM Estimated Blood Loss: Estimated blood loss was minimal. Normal [facility] GLUCOSE, BLOOD (POC)on 11-15 Glucose [Mass/Vol] 198 mg/dL Abnormal 74 - 99 mg/dL [facility] Glucose [Mass/Vol] 161 mg/dL Abnormal 74 - 99 mg/dL [facility] HISTORY PHYSICALon HISTORY PHYSICAL HNO ID: [id number] Author: Ge Fuller MD Service: General Surgery Author Type: Physician Type: HANDP Filed: 11/15/2022 9:11 AM Note Text: HISTORY AND PHYSICAL Sandy Bhatti 1965 REFERRING PHYSICIAN: Maldonado Raza MD CHIEF COMPLAINT: Consult (COLONOSCOPY) HPI: The patient is a 57 year old female referred for endoscopy. Sandy notes chronic constipation which she manages with a stool softener. Patient denies any change in bowel habits, weight changes, blood in stools, black tarry stools or abdominal pain. NOTES family history of colon cancer in a first-degree relative. The patient notes no upper GI complaints. Sandy has undergone prior endoscopy, per patient greater than 10 years ago. Previous colostomy which was reversed in '07 per records in [facility]. Patient's past medical history is significant for renal failure on hemodialysis, hypertension, hyperlipidemia, hypertrophic cardiomyopathy, ventricular tachycardia, type II diabetes mellitus. Patient follows with Dr. Raza in primary care for her chronic medical conditions. Patient is currently being worked up to have a possible renal transplant and colonoscopy required as part of her preop testing. PAST MEDICAL HISTORY PAST MEDICAL HISTORY Diagnosis Date Acute kidney failure (HCC) 01/14/2018 Acute respiratory failure (HCC) Anxiety Arterial steal syndrome (HCC) 12/2018 Left AVF Calculus of ureter 06/12/2007 CKD (chronic kidney disease) stage V requiring chronic dialysis ([facility]) 03/01/2018 Dr. Pendleton, nephrology. Constipation Depression 09/04/2006 GERD (gastroesophageal reflux disease) Hemorrhoids HTN (hypertension) 09/04/2001 Hyperlipidemia 09/04/1999 Hypertrophic cardiomyopathy (HCC) Proteinuria 06/14/2013 Renal colic 06/12/2007 Steal syndrome dialysis vascular access ([facility]) 05/17/2019 Recent increased left arm swelling, which was not previously present. She had an intervention in January on the mid subclavian vein for outflow stenosis. Her fistula is patent and working well. Assessment: 05/16/19 LUE DRIL (proximal brachial to distal brachial artery bypass with RLE rGSV - LUE fistula site c/d/i, +thrill/bruit, radial pulse palpable - RLE Thyroid disorder Type II or unspecified type diabetes mellitus without mention of complication, not stated as uncontrolled 09/04/1985 VT (ventricular tachycardia) 05/17/2019 History: Per patient, has history of excited rhythm. Sees a housing quality standard inspector in [place], last seen in January 2019. No concerns. She will continue to follow up with them. Assessment: Ventricular tachycardia intermittently post-op with HR up to 110s. No chest pain or SOB. Troponins sent to monitor. Labs WNL. ECG completed showing BBB (has had on intermittent previous ECG). - 05/17/19 repeat ECG back to PAST SURGICAL HISTORY PAST SURGICAL HISTORY Procedure Laterality Date APPENDECTOMY 1992 AV ANASTOMIES OPEN;BY BASILIC VEIN WINN Right 04/20/2020 transpose basilic vein fistula, R arm AV FISTULA OR GRAFT VENOUS Left 10/04/2017 AV FISTULA OR GRAFT VENOUS Left 09/20/2018 redo, failure to mature AV FISTULA OR GRAFT VENOUS Right 04/21/2021 BOWEL RESECTION HX 2006 CHOLECYSTECTOMY 1985 Cholecystectomy COLOSTOMY/SKIN LEVEL CECOSTOMY 2007 [id number], reversed 2007 CREATION OF AVF, PERCUTANEOUS USING MAGNETIC-GUIDED ARTERIAL AND VENOUS CATHETERS AND RADIOFREQUENCY ENERGY Right 11/14/2019 RIGHT AVF stage I EXPLORATORY LAPAROTOMY CELIOTOMY W/WO BIOPSY SPX 2006 Laparotomy, exp IR VENOUS FISTULAGRAM Left 01/22/2019 Left SC balloon PAST SURGICAL HISTORY OF Left 05/16/2019 LUE DRSOILA (proximal brachial to distal brachial artery bypass with RLE rGSV REDUCTION OF LARGE BREAST 1989 SALPINGECTOMY OR OOPHERECTOMY-ECTOPIC 1985 SLING OPER STRES INCONTINENCE 1998 TOTAL ABDOMINAL HYSTERECT W/WO RMVL TUBE OVARY 1990 Hysterectomy, RUSSELL CURRENT MEDICATIONS Current Outpatient Medications Medication Sig insulin detemir U-100 (LEVEMIR FLEXTOUCH U-100 INSULIN) 100 unit/mL (3 mL) injection pen Inject 48 Units subcutaneously daily at bedtime. cloNIDine HCl (CATAPRES) 0.3 mg tablet Take 1 tablet by mouth daily at bedtime. SUMAtriptan (IMITREX) 50 mg tablet Take one tablet by mouth at onset of migraine. May repeat in 2 hours if ineffective insulin needles, DISPOSABLE, (PEN NEEDLE) 31 gauge x 5/16 Use one needle per dose. one per day. atorvastatin (LIPITOR) 40 mg tablet Take 1 tablet by mouth daily at bedtime. levothyroxine (SYNTHROID) 125 mcg tablet Take 1 tablet by mouth once daily. Take on empty stomach. For Thyroid Insulin Syringe-Needle U-100 (BD INSULIN SYRINGE ULTRA-FINE) 1 mL 29 gauge x 1/2 Use twice daily as directed. lisinopril (ZESTRIL, PRINIVIL) 40 mg tablet Take 1 tablet by mouth once daily. amLODIPine (NORVASC) 5 mg tablet Take 1 tablet by mouth once daily. insulin aspart U-100 (NOVOLOG FLEXPEN U-100 INSULIN) 100 unit/mL (3 mL) Inject 8 Units subcutaneously (more content not included)... [facility] SURGICAL PATHOLOGYon 023 CASE REPORT [facility] Comment on above: Order Comment: Speci men Type: TISSUE SPECIMEN Ordering Facility: [facility] Address: [address] [place] [address] [place] [address] Result Comment: Surg ical Pathology Report Case: [id number] Authorizing Provider: Ge Fuller MD Collected: 11/15/2022 09:34 AM Ordering Location: [facility] Endoscopy Received: 11/15/2022 02:20 PM Pathologist: Peterson Richey MD Specimens: A) - CECUM BIOPSY B) - TRANSVERSE COLON POLYP, Transverse Colon Polyps times 2 Performed By: #### S #### [facility] CLIA [id number] [address] [place] [address] FINAL DIAGNOSIS Normal [facility] Comment on above: Order Comment: Speci men Type: TISSUE SPECIMEN Ordering Facility: [facility] Address: [address] [place] [address] Result Comment: A. C ecal polyp, biopsy: - Inflammatory-type polyp, negative for dysplasia. B. Transverse colon polyps, biopsies: - Fragments of tubular adenoma. - Melanosis coli. JEL 11/16/2022 Performed By: #### S #### [facility] CLIA [id number] [address] [place] [address] FINAL PERFORMING LAB Normal [facility] Comment on above: Order Comment: Speci men Type: TISSUE SPECIMEN Ordering Facility: [facility] Address: [address] [place] [address] Result Comment: Diag nostic interpretation performed at [facility], [address] [place] [address] CLIA# [id number] Human Resources Temp: Harshal Umanzor M.D. Performed By: #### S #### [facility] CLIA [id number] [address] [place] [address] GROSS DESCRIPTION A. CECUM BIOPSY Normal [facility] Comment on above: Order Comment: Speci men Type: TISSUE SPECIMEN Ordering Facility: [facility] Address: [address] [place] [address] Result Comment: Rece ived in formalin are two pieces of morrison, soft tissue aggregating to 0.4 x 0.2 x 0.2 cm. Totally submitted in one cassette. B. TRANSVERSE COLON POLYP Received in formalin are multiple pieces of morrison, soft tissue aggregating to 0.8 x 0.2 x 0.2 cm. Totally submitted in one cassette. Gross examination performed at [facility], [address] [place] [address] [facility] 11/15/2022 4:51 PM Performed By: #### S #### [facility] CLIA [id number] [address] Absolute lymphocyte countOrd ered By: Dr. Torrez on 09-19-2022 Lymphocytes Auto (Unsp spec) [#/Vol] 1.02 10*3/uL 0.83-4.51 [facility] Basophil percentageOrdered B y: Dr. Torrez on 09-19-2022 Basophil percentage 25-50 SEEN /hpf 0-5 [facility] Basophils/100 WBC (Bld) 1.2 % 0-1 [facility] Chloride [Moles/Vol] 98 mmol/L 98-107 [facility] Eosinophils/100 WBC (Bld) 2.1 % 0-5 [facility] Glucose [Mass/Vol] 166 mg/dL 74-106 [facility] Comment on above: Fasting Glucose resu lt greater than or equal to 126 mg/dL suggests DIABETES MELLITUS per A.D.A. criteria. Neutrophils (Bld) [#/Vol] 2.7 10*3/uL 2.0-7.7 [facility] Neutrophils/100 WBC (Bld) 62.9 % 47-70 [facility] Potassium [Moles/Vol] 3.4 mmol/L 3.5-5.1 [facility] Sodium [Moles/Vol] 139 mmol/L 136-145 [facility] WBC (Bld) [#/Vol] 4.2 10*3/uL 4.4-11.0 [facility] Bilirubin Test strip Ql (U)O rdered By: Dr. Torrez on 09-19-2022 Bilirubin Ql (U) 3 mg/dL Negative [facility] Comment on above: COLOR OF URINE MAY A FFECT DIPSTICK RESULTS. Blood erythrocytes count (nu mber/volume)Ordered By: Dr. Torrez on 09-19-2022 RBC (Bld) [#/Vol] 3.40 10*6/uL 4.2-5.4 [facility] Blood hemoglobin measurement (mass/volume)Ordered By: Dr. Torrez on 09-19-2022 Hemoglobin (Bld) [Mass/Vol] 10.8 g/dL 12.0-15.0 [facility] Blood lymphocytes/100 leukoc ytesOrdered By: Dr. Torrez on 09-19-2022 Lymphocytes/100 WBC (Bld) 24.1 % 19-41 [facility] Blood monocytes/100 leukocyt esOrdered By: Dr. Torrez on 09-19-2022 Monocytes/100 WBC (Bld) 8.5 % 0-10 [facility] Blood platelet mean volumeOr dered By: Dr. Torrez on 09-19-2022 Platelet mean volume (Bld) [Entitic vol] 8.8 fL 6.2-12.0 [facility] Determination of erythrocyte mean corpuscular volume (MCV)Ordered By: Dr. Torrez on 09-19-2022 MCV (RBC) [Entitic vol] 99.4 fL 81-99 [facility] Hematocrit Auto (Bld) [Volum e fraction]Ordered By: Dr. Torrez on 09-19-2022 Hematocrit (Bld) [Volume fraction] 33.8 % 37-47 [facility] Ketones Test strip Ql (U)Ord ered By: Dr. Torrez on 09-19-2022 Ketones Ql (U) 5 mg/dl Negative [facility] Laboratory - Chemistry and C hemistry - challengeOrdered By: Dr. Torrez on 09-19-2022 CO2 [Moles/Vol] 34.0 mmol/L 21.0-32.0 [facility] Urea nitrogen/Creatinine [Mass ratio] 4.0 mg/mg 10-20 [facility] Laboratory - Hematology and Cell countsOrdered By: Dr. Torrez on 09-19-2022 Erythrocyte distribution width (RBC) [Entitic vol] 46.0 fL 35.1-43.9 [facility] Erythrocyte distribution width (RBC) [Ratio] 12.6 % 11.6-14.6 [facility] Immature granulocytes/100 WBC (Bld) 1.200 % 0.0-0.9 [facility] Comment on above: IG% - Immature Granu locytes (promyelocytes, myelocytes and metamyelocytes) > 1% indicates that a LEFT SHIFT is Present. MCH (RBC) [Entitic mass] 31.8 pg 27.0-32.0 [facility] Nucleated RBC/100 WBC (Bld) [Ratio] 0 % 0-5 [facility] MCHC Auto (RBC) [Mass/Vol]Or dered By: Dr. Torrez on 09-19-2022 MCHC (RBC) [Mass/Vol] 32.0 g/dL 32-36 [facility] Mucus LM Ql (Urine sed)Order ed By: Dr. Torrez on 09-19-2022 Mucus Ql (Urine sed) 0 SEEN /hpf [facility] Nitrite Test strip Ql (U)Ord ered By: Dr. Torrez on 09-19-2022 Nitrite Ql (U) Negative Negative [facility] No Panel InformationOrdered By: Dr. Torrez on 09-19-2022 Estimated Creatinine Clearance Calc 13.78 ml/min [facility] Estimated GFR (MDRD) Amer 17 mL/min >60 [facility] Comment on above: GFR Calc Estimated GFR (MDRD) Non-Af Amer 14 mL/min >60 [facility] Comment on above: Non- GFR Calc Platelets bldOrdered By: Dr. Torrez on 09-19-2022 Platelets (Bld) [#/Vol] 182 10*3/uL 150-450 [facility] Protein Test strip Ql (U)Ord ered By: Dr. Torrez on 09-19-2022 Protein Ql (U) 500 mg/dl Negative [facility] Serum or plasma calcium vignesh urement (mass/volume)Ordered By: Dr. Torrez on 09-19-2022 Calcium [Mass/Vol] 9.1 mg/dL 8.5-10.1 [facility] Serum or plasma creatinine m easurement (mass/volume)Ordered By: Dr. Torrez on 09-19-2022 Creatinine [Mass/Vol] 3.52 mg/dL 0.55-1.02 [facility] Comment on above: The validity of the calculated GFR & GFRAA in patients over 70 years has not been determined. Clinical correlation is essential. Serum or plasma urea nitroge n measurement (mass/volume)Ordered By: Dr. Torrez on 09-19-2022 Urea nitrogen [Mass/Vol] 14 mg/dL 7-18 [facility] Squamous epithelial cells de tection in urine sediment by light microscopyOrdered By: Dr. Torrez on 09-19-2022 Epithelial cells.squamous LM Ql (Urine sed) 5-10 SEEN /hpf 5-10 [facility] Thin prep Papanicolaou smear with manual screeningOrdered By: Dr. Torrez on 09-19-2022 Thin prep Papanicolaou smear with manual screening 7 5-15 [facility] Urine blood detectionOrdered By: Dr. Torrez on 09-19-2022 RBC Ql (U) 50 /ul Negative [facility] RBC Ql (U) 0-5 SEEN /hpf 0-5 [facility] Urine clarityOrdered By: Dr. Torrez on 09-19-2022 Clarity (U) Sl. Cloudy Clear [facility] Urine color determinationOrd ered By: Dr. Torrez on 09-19-2022 Color (U) Yellow Yellow [facility] Urine glucose detectionOrder ed By: Dr. Torrez on 09-19-2022 Glucose Ql (U) 100 mg/dl Normal [facility] Urine leukocyte esterase det ection by dipstickOrdered By: Dr. Torrez on 09-19-2022 Leukocyte esterase Test strip Ql (U) 500 /ul Negative [facility] Urine pHOrdered By: Dr. Romain figueroa on 09-19-2022 pH (U) 8.0 [pH] 5.0 - 8.0 [facility] Urine sediment bacteria coun t by microscopy (number/high power field)Ordered By: Dr. Torrez on 09-19-2022 Bacteria LM.HPF (Urine sed) [#/Area] 2 /[HPF] None Seen [facility] Urine specific gravity measu rementOrdered By: Dr. Torrez on 09-19-2022 Specific gravity (U) [Rel density] 1.010 1.002-1.030 [facility] Urobilinogen Auto test strip Ql (U)Ordered By: Dr. Torrez on 09-19-2022 Urobilinogen Ql (U) Normal mg/dl Normal [facility] KUNAL SCREENINGon 07-05-2022 [facility] Blood Typing (ABO + Rho D)on 03-29-2022 ABO group Nom (Bld) A [facility] Work Phone: Rh immune globulin screen (Bld) [Interp] Positive [facility] Work Phone: Blood Urea Nitrogen, Serumon 03-29-2022 Urea nitrogen [Mass/Vol] 35 mg/dL above high threshold 6 - 23 [facility] Work Phone: Comment on above: SOURCE: C Peptide, Serumon C peptide [Mass/Vol] 1.6 ng/mL 0.7 - 3.9 [facility] Work Phone: CMV IgGon 03-29-2022 CMV IgG Reactive Abnormal See Below [facility] Work Phone: Comment on above: SOURCE: Reference Ra nge: NONREACTIVE Creatinine, Serumon 03-29-20 Creatinine [Mass/Vol] 5.71 mg/dL above high threshold See Below [facility] Work Phone: Comment on above: SOURCE: Reference Ra nge: 0.50 - 1.05 Creatinine, Serum 8 {mL/min/1.73m2} Abnormal >90 [facility] Work Phone: Comment on above: CALCULATIONS OF MARY MATED GFR ARE PERFORMED USING THE 2020 CKD-EPI STUDY REFIT EQUATION WITHOUT THE RACE VARIABLE FOR THE IDMS-TRACEABLE CREATININE METHODS.https://jasn.asnjournals.org/content/early// N.8481624626 Falls Screening (Age 18+)on 03-29-2022 Fall risk assessment a) No falls within the last year [facility] Work Phone: Tobacco use status CPHS b) No [facility] Work Phone: Generalized Anxiety Disorder -7on 03-29-2022 Generalized Anxiety Disorder-7 11 1 [facility] Work Phone: Generalized Anxiety Disorder-7 1-Several days [facility] Work Phone: Generalized Anxiety Disorder-7 2-More than half the days [facility] Work Phone: Generalized Anxiety Disorder-7 3-Nearly every day [facility] Work Phone: Generalized Anxiety Disorder-7 0-Not at all [facility] Work Phone: HIV 1/2 ANTIGEN/ANTIBODY SCR EEN WITH REFLEX TO CONFIRMATIONon 03-29-2022 HIV 1+2 Ab Qn (S) Non-Reactive See Below [facility] Work Phone: Comment on above: SOURCE: Reference Ra nge: NONREACTIVE HIV Ag/Ab screen is performed using the Siemens [employer] HIV Ag/Ab Combo assay which detects the presence of HIV p24 antigen as well as antibodies to HIV-1 (Group M and O) and HIV-2..No laboratory evidence of HIV infection. If acute HIV infection is suspected, consider testing for HIV RNA by PCR (viral load). Hemoglobin A1Con 03-29-2022 Glucose [Mass/Vol] 146 mg/dL [facility] Work Phone: HbA1c (Bld) [Mass fraction] 6.7 % Abnormal [facility] Work Phone: Comment on above: Diagnosis of Diabete s-Adults Non-Diabetic: < or = 5.6% Increased risk for developing diabetes: 5.7-6.4% Diagnostic of diabetes: > or = 6.5%. Monitoring of Diabetes Age (y) Therapeutic Goal (%) Adults: >18 <7.0 Pediatrics: 13-18 <7.5 7-12 <8.0 0- 6 7.5-8.5 [employer]. Diabetes Care 33(S1), Sep 2009. Hepatic Function Panelon Albumin BCP dye [Mass/Vol] 4.1 g/dL 3.4 - 5.0 [facility] Work Phone: Comment on above: SOURCE: ALP [Catalytic activity/Vol] 344 U/L above high threshold 33 - 110 [facility] Work Phone: ALT With P-5'-P [Catalytic activity/Vol] 33 U/L 7 - 45 [facility] Work Phone: Comment on above: Patients treated wit h Sulfasalazine may generate falsely decreased results for ALT. AST With P-5'-P [Catalytic activity/Vol] 24 U/L 9 - 39 [facility] Work Phone: Bilirubin [Mass/Vol] 0.4 mg/dL 0.0 - 1.2 [facility] Work Phone: Bilirubin.direct [Mass/Vol] 0.1 mg/dL 0.0 - 0.3 [facility] Work Phone: Protein [Mass/Vol] 6.7 g/dL 6.4 - 8.2 [facility]: Hepatitis B Core Antibody, T [facility] 03-29-2022 Hepatitis B Core Antibody, Total Non-Reactive See Below [facility] Work Phone: Comment on above: SOURCE: Reference Ra nge: NONREACTIVE Results from patients taking biotin supplements or receiving high-dose biotin therapy should be interpreted with caution due to possible interference with this test. Providers may contact their local laboratory for further information. SOURCE: Reference Ra nge: NONREACTIVE Biotin interference may cause falsely decreased results. Patients taking a Biotin dose of up to 5 mg/day should refrain from taking Biotin for 24 hours before sample collection. Providers may contact their local laboratory for further information. Hepatitis B Surface Antibody on 03-29-2022 HBV surface Ag IA Ql <3.1 <10 [facility] Work Phone: [phone] Comment on above: SOURCE: INTERPRETIVE CRITERIA:<10 mIU/mL....NONREACTIVE >=10 mIU/mL...REACTIVE . Biotin interference may cause falsely decreased results. Patients taking a Biotin dose of up to 5 mg/day should refrain from taking Biotin for 24 hours before sample collection. Providers may contact their local laboratory for further information. Laboratory - Drug toxicology on 03-29-2022 Amphetamines Screen Ql Negative Cutoff 20 [facility] Work Phone: [phone] Barbiturates Screen Ql Negative Cutoff 50 [facility] Work Phone: [phone] Benzodiazepines Screen Ql Negative Cutoff 50 [facility] Work Phone: Cannabinoids Screen Ql Negative Cutoff 20 [facility] Work Phone: [phone] Cocaine Screen Ql Negative Cutoff 20 [facility] Work Phone: Methadone Screen Ql Negative Cutoff 25 [facility] Work Phone: Methamphetamine Ql Negative Cutoff 20 [facility] Work Phone: Opiates Screen Ql Negative Cutoff 20 [facility] Work Phone: [phone] oxyCODONE Ql Negative Cutoff 20 [facility] Work Phone: [phone] Phencyclidine Screen Ql Negative Cutoff 10 [facility] Work Phone: [phone] Laboratory - HLA antigenson 03-29-2022 HLA-A locus Nom (Bld/Tiss) SEE COMMENT -[facility] [address] Work Phone: Comment on above: HLA-A LOCUS, LOW RES OLUTION TYPE SEE SEPARATE REPORT. HLA-B locus Nom (Bld/Tiss) SEE COMMENT -[facility] [address] Work Phone: Comment on above: HLA-B LOCUS, LOW RES OLUTION TYPE SEE SEPARATE REPORT. HLA-C locus Nom (Bld/Tiss) SEE COMMENT [facility] [place] [address] Work Phone: Comment on above: HLA-C LOCUS, LOW RES OLUTION TYPE SEE SEPARATE REPORT.Test performed at [facility] Histocompatibility and Immunogenetics Laboratory [facility], 6th Floor [address] [place] [address] HLA-DP2 Ql (Bld/Tiss) SEE COMMENT [facility] -[facility] [address] Work Phone: Comment on above: HLA-DPB1 HIGH RESOLU TION TYPING SEE SEPARATE REPORT.Test performed at [facility] Immunogen[facility] Laboratory [facility], 6th Floor [address] [place] [address] HLA-DQB1 High resolution Nom (Bld/Tiss) SEE COMMENT -[facility] [place] [address] Work Phone: Comment on above: HLA-DQB1 HIGH RESOLU TION TYPING SEE SEPARATE REPORT.Test performed at [facility] Immunogenetics Laboratory [facility], 6th Floor [address] [place] [address] HLA-DR+DQ Nom (Bld/Tiss) SEE COMMENT -[facility] [address] Work Phone: Comment on above: HLA-DRB1/3/4/5 & DQB 1 LOW RESOLUTION TYPING SEE SEPARATE REPORT.Test performed at [facility]ocompatibility and Immunogenetics Laboratory [facility], 6th Floor [address] [place] [address] HLA-A locus Nom (Bld/Tiss) Canceled [facility] Work Phone: [phone] HLA-B locus Nom (Bld/Tiss) Canceled [facility] Work Phone: [phone] HLA-C locus Nom (Bld/Tiss) Canceled [facility] Work Phone: HLA-DP2 Ql (Bld/Tiss) Canceled [facility] Work Phone: HLA-DQB1 High resolution Nom (Bld/Tiss) Canceled [facility] Work Phone: HLA-DR+DQ Nom (Bld/Tiss) Canceled [facility] Work Phone: Laboratory - Hematology and Cell countson 03-29-2022 Erythrocyte distribution width (RBC) [Ratio] 11.9 % See Below [facility] Work Phone: Comment on above: Reference Range: 11. 5 - 14.5 Hematocrit (Bld) [Volume fraction] 34.7 % below low threshold See Below [facility] Work Phone: Comment on above: Reference Range: 36. 0 - 46.0 Hemoglobin (Bld) [Mass/Vol] 11.2 g/dL below low threshold See Below [facility] Work Phone: Comment on above: Reference Range: 12. 0 - 16.0 MCHC (RBC) [Mass/Vol] 32.3 g/dL See Below [facility] Work Phone: Comment on above: Reference Range: 32. 0 - 36.0 MCV (RBC) [Entitic vol] 103 fL above high threshold 80 - 100 [facility] Work Phone: Platelets (Bld) [#/Vol] 230 10*3/uL 150 - 450 [facility] Work Phone: RBC (Bld) [#/Vol] 3.37 {x10E12/L} below low threshold See Below [facility] Work Phone: Comment on above: Reference Range: 4.0 0 - 5.20 WBC (Bld) [#/Vol] 4.9 10*3/uL 4.4 - 11.3 [facility] Work Phone: Laboratory - Microbiology an d Antimicrobial susceptibilityon 03-29-2022 EBV capsid IgG IA Qn (S) Positive Abnormal NEGATIVE [facility] Work Phone: Comment on above: SOURCE: EBV capsid IgM IA Qn (S) Negative NEGATIVE [facility] Work Phone: EBV early IgM IA Qn (S) Negative NEGATIVE [facility] Work Phone: EBV nuclear IgG IA Qn (S) Positive Abnormal NEGATIVE [facility] Work Phone: Nicotine+Metabolites, Serumo n 03-29-2022 Cotinine [Mass/Vol] <2 [facility] Work Phone: Nicotine [Mass/Vol] <2 [facility] Work Phone: Comment on above: Consistent with abst inence from nicotine-containingproducts for at least 1 week.INTERPRETIVE INFORMATION: Nicotine and Metabolites, Serum or Plasma, QuantitativeMethodology: Quantitative Liquid Chromatography-Tandem Mass SpectrometryPositive cutoff: 2 ng/mLFor medical purposes only; not valid for forensic [...] developed and its performance characteristics determined by [facility]. It has not been cleared or approved by the US Food and Drug Administration. This test was performed in a CLIA certified laboratory and is intended for clinical purposes.Performed By: [address] [id number] Director: Jhonathan Ortega MD, PhD [id number]-[id number] ne [Mass/Vol] <2 [facility] Work Phone: No Panel Informationon 03-29 SEE COMMENT [facility] [address] Work Phone: Comment on above: HLA CLASS I AB SCREE N,FLOW CYTOMETRY SEE SEPARATE REPORT.Test performed at [facility] Histocompatibility and Immunogenetics Laboratory [facility], [address]th [id number] [place] [address] HLA CLASS II AB SCRE EN,FLOW CYTOMETRY SEE SEPARATE REPORT.Test performed at [facility]ocompatibility and Immunogenetics Laboratory [facility], 6th [address] [address] [place] [address] SEE SEPARATE REPORT [facility]rol[facility] [address] Work Phone: Comment on above: Test performed at [facility] Histocompatibility and Immunogenetics Laboratory [facility], 6th [address] [address] [place] [address] Annotation comment [Interpretation] Narrative See Note [facility] Work Phone: Comment on above: INTERPRETIVE INFORMA TION: Drug Screen 9 Panel, Serum or Plasma - Immunoassay Screen with Reflex to Mass Spectrometry Confirmation/Quantitation1. Methodology: Qualitative Immunoassay Screen2. Drugs/Drug classes reported as Positive are automatically [...] Interpretive questions should be directed to the laboratory.4. For medical purposes only; not valid for forensic use.This test was developed and its performance characteristics determined by [employer] [facility]. It has not been cleared or approved by the [place] Food and Drug Administration. This test was performed in a CLIA certified laboratory and is intended for clinical purposes.Performed By: [facility] [address] [place] [id number] Director: Jhonathan Ortega MD, PhD 0.0 {/100_WBC} 0.0-0.0 [facility] Work Phone: SEE BELOW [facility] Work Phone: Comment on above: . EBV INTERPRETATION CHART. VCA-IGG VCA-IGM NA-IGG EA-IGG. PRIMARY ACUTE +/- +/- - +/-LATE ACUTE + +/- +/- +/-RECOVERING + - - +PREVIOUS INFECTION + - +/- - PHQ-9on 03-29-2022 PHQ-9 1-Several days [facility] Work Phone: PHQ-9 3-Nearly every day [facility] Work Phone: PHQ-9 2-More than half the days [facility] Work Phone: PHQ-9 0-Not at all [facility] Work Phone: PHQ-9 Somewhat Difficult [facility] Work Phone: Phosphorus, Serumon 03-29-20 22 Phosphate [Mass/Vol] 3.6 mg/dL 2.5 - 4.9 [facility] Work Phone: Comment on above: SOURCE: The performa nce characteristics of phosphorus testing in heparinized plasma have been validated by the individual laboratory site where testing is performed. Testing on heparinized plasma is not approved by the FDA; however, such approval is not necessary. SYPHILIS SCREENING WITH REFL EXon 03-29-2022 T. pallidum IgG+IgM IA Ql (S) Non-Reactive See Below [facility] Work Phone: Comment on above: SOURCE: Reference Ra nge: NONREACTIVENo significant level of Treponema pallidum antibody detected. Repeat testing in 2 to 4 weeks may be considered if early infection or incubating syphilis infection is suspected. T-SPOT. TBon 03-29-2022 T-SPOT. TB Passed [facility] Work Phone: T-SPOT. TB 0 1 [facility] Work Phone: T-SPOT. TB Negative Cutoff 1 [facility] Work Phone: Comment on above: Reference Range: Nor mal Value: NegativeA negative test result does not exclude the [...] qualitative and results are reported as positive, borderline or negative, given that the test controls perform as expected. In line with the Centers for Disease Control and Prevention's 2010 recommendation to report quantitative measurements alongside the qualitative result, the laboratory provides spot counts for informational purposes only. The T-SPOT.TB test should not be interpreted as a quantitative test. Urinalysison 03-29-2022 Appearance (U) Canceled [facility] Work Phone: Color (U) Canceled [facility] Work Phone: Glucose Ql (U) Canceled [facility] Work Phone: Ketones Ql (U) Canceled [facility] Work Phone: Leukocyte esterase Test strip Ql (U) Canceled [facility] Work Phone: [phone] Protein (U) [Mass/Vol] Canceled [facility] Work Phone: [phone] RBC (U) [#/Vol] Canceled [facility] Work Phone: [phone] Specific gravity (U) [Rel density] Canceled [facility] Work Phone: Urinalysis Canceled [facility] Work Phone: [phone] Comment on above: Test performed at [facility] Histocompatibility and Immunogenetics Laboratory [facility], [address]th [address] [place] [address] Concentrations > = 2 0 mg/dL of ascorbic acid can be expected to cause strong interference in the reactions testing for glucose, nitrite and blood. It is recommended to discontinue Vitamin C administration and retest in 10 hours. Varicella Zoster IgG Antibod [facility] 03-29-2022 VZV IgG IA Ql (S) Positive NEGATIVE [facility] Work Phone: Comment on above: SOURCE: INTERPRETATI VE COMMENT NEGATIVE: No IgG antibodies specific to VZV [...] was exposed to VZV through infection or vaccination.The interpretation of serological tests should take into accountthe immunological status of the patient. Test results forpatients, including immunocompromised patients, neonates, andpediatric patients, reflect their capacity to respondimmunologically to the virus as well as their exposure to thepathogen. Patients treated with IVIG may demonstrate alteredresults in serological assays. URINE CULTUREon 12-15-2021 Bacteria identified Cx Nom (U) 10,000 -<50,000 CFU/ml Streptococcus anginosus Abnormal [facility] Bacteria identified Cx Nom (U) <10,000 CFU/ml Normal urogenital micaela [facility] CT FLANK WO IVCONon 12-07-19 [facility] UA DIP, URINE (POC)on 2021 BILIRUBIN UA (POCT) Small Abnormal Negative Artur [facility] CLARITY UA (POCT) Cloudy [facility] COLOR UA (POCT) Elvia [facility] GLUCOSE UA (POCT) 100 mg/dL Abnormal Negative mg/dL [facility] HEMOGLOBIN/BLOOD UA (POCT) Large Abnormal Negative [facility] KETONE UA (POCT) Trace Negative mg/dL [facility] LEUKOCYTES UA (POCT) Small Abnormal Negative [facility] NITRITE UA (POCT) Negative Negative [facility] PH UA (POCT) 6.0 4.5 - 8.0 [facility] Protein Ql (U) >=300 Abnormal Negative mg/dL [facility] SPECIFIC GRAVITY UA (POCT) 1.020 1.005 - 1.030 [facility] UROBILINOGEN UA (POCT) 0.2 E.U./dL Normal E.U./dL [facility] CATH TIPon 07-29-2018 CATH TIP NO GROWTH AFTER 5 DAYS Normal [facility] [place] Comment on above: Order Comment: Campu s: M Performed By: #### L 500.26549, L500.69199 ####[facility] [id number] [place], [place] [address]Ol# [phone] CBCon 07-24-2018 Erythrocyte distribution width Auto Ratio (RBC) 12.9 % Normal 11-14.5 [facility] Comment on above: Order Comment: Campu s: M Performed By: #### L 500.26981, L500.80730 ####[facility] [id number] [place], [place] [address]Dm# [phone] Hematocrit Auto Volume Fraction (Bld) 29.9 % Low 35.0-47.0 [facility] Comment on above: Order Comment: Campu s: M Performed By: #### L 500.81994, L500.95488 ####[facility] [id number] [place] [address]Ly# [phone] Hemoglobin mass conc (Bld) 9.9 g/dL Low 11.5-15.5 [facility] Comment on above: Order Comment: Campu s: M Performed By: #### L 500.33197, L500.04417 ####[place] [id number]# [phone] MCHC Auto mass conc (RBC) 33.1 g/dL Normal 32.0-36.0 [facility] Comment on above: Order Comment: Campu s: M Performed By: #### L 500.57731, L500.16200 ####[address] [address]Yc# [phone] MCV Auto Entitic volume (RBC) 92.3 fL Normal 80.0-99.0 [facility] Comment on above: Order Comment: Campu s: M Performed By: #### L 500.88942, L500.72351 ####[address] [address]Uo# [phone] Nucleated RBC/100 WBC Ratio (Bld) 0.0 % Normal Less than 1 [facility] Comment on above: Order Comment: Campu s: M Performed By: #### L 500.47741, L500.61759 ####[facility] [id number] [place] [address]Xi# [phone] Platelet mean volume Auto Entitic volume (Bld) 9.2 fL Low 9.4-12.4 [facility] Comment on above: Order Comment: Campu s: M Performed By: #### L 500.52769, L500.07213 ####[facility] [id number] [place] [address]Uq# [phone] Platelets Auto #/vol (Bld) 204 K/CU MM Normal 150-450 [facility] Comment on above: Order Comment: Campu s: M Performed By: #### L 500.90382, L500.07856 ####[facility] [id number] [place], [place] [address]Gk# [phone] RBC Auto #/vol (Bld) 3.24 M/CU MM Low 3.90-5.30 [facility] [place] Comment on above: Order Comment: Campu s: M Performed By: #### L 500.18856, L500.55493 ####[facility] [id number] [place], [place] [address]Vn# [phone] WBC Auto #/vol (Bld) 6.3 K/CU MM Normal 4.5-11.0 [facility] Comment on above: Order Comment: Campu s: M Performed By: #### L 500.86405, L500.37723 ####[facility] [place], [place] [address]Ot# [phone] FLUORO GUIDANCE PLACEMENTon 07-24-[address] CENTRAL TUNNEL NO PORT/PUMP, REMOVAL PERMA CATH, US GUIDE VASCULARACCESS, FLUORO GUIDANCE PLACEMENT, US GUIDE VASCULAR ACCESSOrdering Physician: Héctor Herrera MD07/24/2018 3:57 PM1. EXPLANT OF TUNNELED RIGHT INTERNAL JUGULAR DIALYSIS CATHETER.2. Conscious sedation performed by Dr. Pineda.3. Right internal jugular ultrasound venogram.4. Combined ultrasound and fluoroscopic-guided placement of atunneled right internal jugular dialysis catheter.Clinical Statement: End-stage renal diseaseRadiation Dose: 1 mGyFluoroscopic Time: 0.7 minutesContrast Dose: NoneProcedure: After informed consent was obtained, the patient wasplaced supine on the angiography table. Conscious sedation wasinstituted by Dr. Pineda. Intravenous Versed and Fentanyl wereutilized. The patient was monitored using continuouselectrocardiogra m, pulse oximetry and cuff blood pressure measurement.The area of the right neck and upper chest was prepped and draped inthe usual sterile fashion. The previously placed right internaljugular tunneled dialysis catheter was explanted using bluntdissection following the administration of local anesthesia utilizing2% lidocaine. The catheter was removed in its entirety. The tip wassent for culture.The area of the right neck and upper chest was again prepped anddraped in the usual sterile fashion.Initial ultrasound evaluation of the right internal jugular veindemonstrates it to be widely patent with appropriate cardiacpulsatility, indicating patency to the right atrium.After local infiltrative anesthesia with 2% plain lidocaine, the rightinternal jugular vein was accessed under direct ultrasoundvisualization. Permanent ultrasound images were taken and recorded.Attention was then drawn to creation of the subcutaneous tunnel.After additional local infiltrative anesthesia with 2% plainlidocaine, a small dermatotomy was opened just caudal to the rightclavicle. The catheter was then tunneled from its exit site to theright internal jugular dermatotomy. Using guidewire and catheterexchange technique, the subcutaneous tissues were dilated and thedelivery sheath for the PermCath deployed. This was performed underfluoroscopic control. The catheter was then deployed through thedelivery sheath and delivery sheath removed in the standard fashion.This was also performed under fluoroscopic control. The catheter hasits tip at the junction of the superior vena cava and right atrium.Catheter length is 24 cm tip to cuff.The catheter functions appropriately. The catheter was primed withthe appropriate volume of heparinized solution. The right internaljugular dermatotomy was closed with 4-0 Vicryl. The catheter wassecured in position with 3-0 Prolene and sterile dressing applied.At the close of the procedure, hemostasis was maintained. The patientwas then discharged from the angiography area in good condition havingtolerated the procedure well.IMPRESSION:1. Conscious sedation performed by Dr. Pineda.2. Successful explantation of previously placed tunneled rightinternal jugular dialysis catheter.3. Successful combined ultrasound and fluoroscopic-guided placementof a tunneled right internal jugular dialysis catheter. Dictated by Tire Spotter: Jag Oneill and Signed by: Elfego Pienda MD---- Electronic Signature on File ----Signed By: Elfego Pineda [email or web address]: 07/25/2018 8:11 AMSigned: 07/25/2018 8:39 AM Reported By: ELFEGO PINEDA M.D. Signed By: ELFEGO PINEDA M.D. Normal [facility] GFR ESTon 07-24-2018 IF AMER 10 ML/MIN Normal [facility] Comment on above: Order Comment: Campu s: M Performed By: #### L 500.34288, L500.96578 ####[facility] [id number] [place], [place] [address]Gl# [phone] IF non-AFR AMER 9 ML/MIN [facility] Comment on above: Order Comment: Campu s: M Performed By: #### L 500.82519, L500.20718 ####[facility] [id number] [place], [place] [address]Mc# [phone] GLUCOSE METERon 07-24-2018 Glucose mass conc 150 mg/dL High 85-125 [facility] ORon 07-24-2018 OPERATIVE REPORT Normal [facility] OR DATE OF SERVICE: 07/24/2018PREOPERATIVE DIAGNOSES:1. Non-maturing arteriovenous fistula.2. Severe radial artery stenosis.POSTOPERATIVE DIAGNOSES:1. Non-maturing arteriovenous fistula.2. Severe radial artery stenosis.OPERATIONS:1. Ultrasound-guided arterial puncture left brachial artery.2. Angiogram left upper extremity with fistulogram.3. Angioplasty of left radial artery with 3 mm x 10 cm cutting balloon x2.4. Cutting balloon angioplasty x4 of left radial artery with 3 mm x 1.5 cm [employer] cutting balloon.5. Angioplasty of proximal arteriovenous fistula with 4 mm x 4 cm cutting balloon.COMPLICATIONS: None.SURGEON: Héctor Herrera, [facility] HOSPITALNESTHESIA: IV sedation monitored care.FINDINGS: Severe multisegmental stenosis of distal radial artery as well as justproximal to the anastomosis with successful angioplasty.PROCEDURE IN DETAIL: The patient was brought to the angioplasty suite and was placedin supine position, placed on pulse oximetry cardiac monitoring. Given IV sedationwith fentanyl 25 mcg and Versed 1 mg. Total time was 55 minutes.Attention was placed to the left arm where ultrasound guidance was used to gainaccess. The left arm was prepped and draped in standard fashion to the brachialartery. Exchange was made out with guiding down to the radial artery. Angiogram ofthe upper extremity revealed diminutive multiple stenoses of the distal radial arteryas well as particularly in the proximal to the anastomosis which was noted on herpreoperative workup.We systemically heparinized the patient, exchanged out for a 4-Eritrean sheath over aGlidewire and managed to go up and over the anastomosis down the fistula. We thenexchanged out for an 0.014 wire across the anastomosis. We then angioplastied with a3 x 10 balloon in the radial artery with significant improvement, but multiplestenoses still remained; particularly resistant was just proximal to the anastomosis. [facility] PATIENT NAME: SANDY BHATTI [id number] [facility] [address] [facility] REC #: [id number], [place] [address] DATE:DISCHARGE DATE:OPERATIVE REPORT ATTENDING PHY: Héctor Herrera then addressed the outflow in the fistula with a 4 x 4 cutting balloon. This gaveus a 10 mm pressure for 1-1/2 minutes. This gave us great improvement. We thenexchanged out with the wire going down the distal artery and did a cutting balloonangioplasty 4 times to the distal radial artery with significant improvement, withactual dramatic improvement in flow. We then did again another 3 x 10 ballooninflation with 10 mm, took 1 minute. It gave us beautiful results, dramaticimprovement of flow and had a positive thrill to the fistula.No signs of complicating factors. We had used a 6-Eritrean sheath. We pulled afterHCT normalized. The patient was getting over to Interventional Radiology to have emzPfwz-X-Hdge exchanged. CIPRIANO Luna/[id number]: 07/24/2018 16:29DT: 07/24/2018 21:01SSI File#: [id number] #: [id number]/Reviewed by07/25/18 1509 PREJE [facility] PATIENT NAME: SANDY BHATTI [facility] [address] [place] MEDICAL REC #: [id number] [address] DATE:DISCHARGE DATE:OPERATIVE REPORT ATTENDING PHY: Héctor Herrera MD [facility] [place] PL CENTRAL TUNNEL NO PORT/PU MPon 07-24-2018 PL CENTRAL TUNNEL NO PORT/PUMP PL CENTRAL TUNNEL NO PORT/PUMP, REMOVAL PERMA CATH, US GUIDE VASCULARACCESS, FLUORO GUIDANCE PLACEMENT, US GUIDE VASCULAR ACCESSOrdering Physician: Héctor Herrera MD07/24/2018 3:57 PM1. EXPLANT OF TUNNELED RIGHT INTERNAL JUGULAR DIALYSIS CATHETER.2. Conscious sedation performed by Dr. Pineda.3. Right internal jugular ultrasound venogram.4. Combined ultrasound and fluoroscopic-guided placement of atunneled right internal jugular dialysis catheter.Clinical Statement: End-stage renal diseaseRadiation Dose: 1 mGyFluoroscopic Time: 0.7 minutesContrast Dose: NoneProcedure: After informed consent was obtained, the patient wasplaced supine on the angiography table. Conscious sedation wasinstituted by Dr. Pineda. Intravenous Versed and Fentanyl wereutilized. The patient was monitored using continuouselectrocardiogra m, pulse oximetry and cuff blood pressure measurement.The area of the right neck and upper chest was prepped and draped inthe usual sterile fashion. The previously placed right internaljugular tunneled dialysis catheter was explanted using bluntdissection following the administration of local anesthesia utilizing2% lidocaine. The catheter was removed in its entirety. The tip wassent for culture.The area of the right neck and upper chest was again prepped anddraped in the usual sterile fashion.Initial ultrasound evaluation of the right internal jugular veindemonstrates it to be widely patent with appropriate cardiacpulsatility, indicating patency to the right atrium.After local infiltrative anesthesia with 2% plain lidocaine, the rightinternal jugular vein was accessed under direct ultrasoundvisualization. Permanent ultrasound images were taken and recorded.Attention was then drawn to creation of the subcutaneous tunnel.After additional local infiltrative anesthesia with 2% plainlidocaine, a small dermatotomy was opened just caudal to the rightclavicle. The catheter was then tunneled from its exit site to theright internal jugular dermatotomy. Using guidewire and catheterexchange technique, the subcutaneous tissues were dilated and thedelivery sheath for the PermCath deployed. This was performed underfluoroscopic control. The catheter was then deployed through thedelivery sheath and delivery sheath removed in the standard fashion.This was also performed under fluoroscopic control. The catheter hasits tip at the junction of the superior vena cava and right atrium.Catheter length is 24 cm tip to cuff.The catheter functions appropriately. The catheter was primed withthe appropriate volume of heparinized solution. The right internaljugular dermatotomy was closed with 4-0 Vicryl. The catheter wassecured in position with 3-0 Prolene and sterile dressing applied.At the close of the procedure, hemostasis was maintained. The patientwas then discharged from the angiography area in good condition havingtolerated the procedure well.IMPRESSION:1. Conscious sedation performed by Dr. Pineda.2. Successful explantation of previously placed tunneled rightinternal jugular dialysis catheter.3. Successful combined ultrasound and fluoroscopic-guided placementof a tunneled right internal jugular dialysis catheter. Dictated by Tire Spotter: Jag Oneill and Signed by: Elfego Pineda MD---- Electronic Signature on File ----Signed By: Elfego Pineda [email or web address]: 07/25/2018 8:11 AMSigned: 07/25/2018 8:39 AM Reported By: ELFEGO PINEDA M.D. Signed By: ELFEGO PINEDA M.D. [facility] [place] REMOVAL PERMA CATHon [address] CENTRAL TUNNEL NO PORT/PUMP, REMOVAL PERMA CATH, US GUIDE VASCULARACCESS, FLUORO GUIDANCE PLACEMENT, US GUIDE VASCULAR ACCESSOrdering Physician: Héctor Herrera MD07/24/2018 3:57 PM1. EXPLANT OF TUNNELED RIGHT INTERNAL JUGULAR DIALYSIS CATHETER.2. Conscious sedation performed by Dr. Pineda.3. Right internal jugular ultrasound venogram.4. Combined ultrasound and fluoroscopic-guided placement of atunneled right internal jugular dialysis catheter.Clinical Statement: End-stage renal diseaseRadiation Dose: 1 mGyFluoroscopic Time: 0.7 minutesContrast Dose: NoneProcedure: After informed consent was obtained, the patient wasplaced supine on the angiography table. Conscious sedation wasinstituted by Dr. Pineda. Intravenous Versed and Fentanyl wereutilized. The patient was monitored using continuouselectrocardiogra m, pulse oximetry and cuff blood pressure measurement.The area of the right neck and upper chest was prepped and draped inthe usual sterile fashion. The previously placed right internaljugular tunneled dialysis catheter was explanted using bluntdissection following the administration of local anesthesia utilizing2% lidocaine. The catheter was removed in its entirety. The tip wassent for culture.The area of the right neck and upper chest was again prepped anddraped in the usual sterile fashion.Initial ultrasound evaluation of the right internal jugular veindemonstrates it to be widely patent with appropriate cardiacpulsatility, indicating patency to the right atrium.After local infiltrative anesthesia with 2% plain lidocaine, the rightinternal jugular vein was accessed under direct ultrasoundvisualization. Permanent ultrasound images were taken and recorded.Attention was then drawn to creation of the subcutaneous tunnel.After additional local infiltrative anesthesia with 2% plainlidocaine, a small dermatotomy was opened just caudal to the rightclavicle. The catheter was then tunneled from its exit site to theright internal jugular dermatotomy. Using guidewire and catheterexchange technique, the subcutaneous tissues were dilated and thedelivery sheath for the PermCath deployed. This was performed underfluoroscopic control. The catheter was then deployed through thedelivery sheath and delivery sheath removed in the standard fashion.This was also performed under fluoroscopic control. The catheter hasits tip at the junction of the superior vena cava and right atrium.Catheter length is 24 cm tip to cuff.The catheter functions appropriately. The catheter was primed withthe appropriate volume of heparinized solution. The right internaljugular dermatotomy was closed with 4-0 Vicryl. The catheter wassecured in position with 3-0 Prolene and sterile dressing applied.At the close of the procedure, hemostasis was maintained. The patientwas then discharged from the angiography area in good condition havingtolerated the procedure well.IMPRESSION:1. Conscious sedation performed by Dr. Pineda.2. Successful explantation of previously placed tunneled rightinternal jugular dialysis catheter.3. Successful combined ultrasound and fluoroscopic-guided placementof a tunneled right internal jugular dialysis catheter. Dictated by Tire Spotter: Jag Oneill and Signed by: Elfego Pineda MD---- Electronic Signature on File ----Signed By: Elfego Pineda [email or web address]: 07/25/2018 8:11 AMSigned: 07/25/2018 8:39 AM Reported By: ELFEGO PINEDA M.D. Signed By: ELFEGO PINEDA M.D. Normal [facility] RENALon 07-24-2018 Albumin mass conc 3.5 g/dL Normal 3.2-5.0 [facility] Comment on above: Order Comment: Campu s: M Performed By: #### L 500.81803, L500.90029 ####[facility] [id number] [place], [place] [address]Xq# [phone] Anion gap 3 molar conc 11 mmol/L Normal 5-16 [facility] Comment on above: Order Comment: Campu s: M Performed By: #### L 500.64090, L500.45691 ####[facility] [id number] [place], [place] [address]Zs# [phone] Calcium mass conc 9.0 mg/dL Normal 8.5-10.1 [facility] Comment on above: Order Comment: Campu s: M Performed By: #### L 500.79372, L500.04673 ####[facility] [id number] [place], [place] [address]Tl# [phone] Chloride molar conc 101 mmol/L Normal 98-107 [facility] Comment on above: Order Comment: Campu s: M Performed By: #### L 500.28507, L500.93248 ####[facility] [id number] [place], [place] [address]Qm# [phone] CO2 molar conc 26 mmol/L Normal 21-32 [facility] Comment on above: Order Comment: Campu s: M Performed By: #### L 500.60063, L500.74964 ####[facility] [id number] [place], [place] [address]Ug# [phone] Creatinine mass conc 5.180 mg/dL High 0.510-0.950 [facility] [place] Comment on above: Order Comment: Campu s: M Result Comment: Bea ents receiving either N-Acetylcysteine (NAC) orMetamizole prior to venipuncture, may have falsely depressedresults. Performed By: #### L 500.66942, L500.34688 ####[facility] [id number] [place], [place] [address]Zy# [phone] Glucose mass conc 188 mg/dL High 70-100 [facility] Comment on above: Order Comment: Campu s: M Result Comment: 70-1 00- Normal Fasting; 100-125 Impaired Fasting; greaterthan 126 on more than one result- Diabetes. ADA guidelines.Results may be falsely elevated after the administration ofSulfapyridine.Results may be falsely depressed after the administration ofSulfasalazine. Performed By: #### L 500.97228, L500.93568 ####[facility] [id number] [place], [place] [address]Sb# [phone] Phosphate mass conc 4.2 mg/dL Normal 2.5-4.9 [facility] Comment on above: Order Comment: Campu s: M Performed By: #### L 500.46608, L500.70320 ####[facility] [id number] [place], [place] [address]Ws# [phone] Potassium molar conc 5.0 mmol/L Normal 3.5-5.1 [facility] Comment on above: Order Comment: Campu s: M Performed By: #### L 500.97821, L500.48548 ####[facility] XOFVXOEEYL6335 [place], [place] [address]Qp# [phone] Sodium molar conc 138 mmol/L Normal 136-145 [facility] Comment on above: Order Comment: Campu s: M Performed By: #### L 500.99075, L500.90686 ####[facility] VWOKQERBVB5381 [place], [place] [address]Xb# [phone] Urea nitrogen mass conc 44 mg/dL High 7-26 [facility] Comment on above: Order Comment: Campu s: M Performed By: #### L 500.52672, L500.79536 ####[facility] XBCNBAFOMV7076 [place], [place] [address]Xm# [phone] Urea nitrogen/Creatinine mass ratio 9 mg/mg Low 15-24 [facility] Comment on above: Order Comment: Campu s: M Performed By: #### L 500.68322, L500.43540 ####[facility] MPEBADZKEE8358 [place], [place] [address]Ny# [phone] US GUIDE VASCULAR ACCESSon 1 09-23-[address] VASCULAR ACCESS PL CENTRAL TUNNEL NO PORT/PUMP, REMOVAL PERMA CATH, US GUIDE VASCULARACCESS, FLUORO GUIDANCE PLACEMENT, US GUIDE VASCULAR ACCESSOrdering Physician: Héctor Herrera MD07/24/2018 3:57 PM1. EXPLANT OF TUNNELED RIGHT INTERNAL JUGULAR DIALYSIS CATHETER.2. Conscious sedation performed by Dr. Pineda.3. Right internal jugular ultrasound venogram.4. Combined ultrasound and fluoroscopic-guided placement of atunneled right internal jugular dialysis catheter.Clinical Statement: End-stage renal diseaseRadiation Dose: 1 mGyFluoroscopic Time: 0.7 minutesContrast Dose: NoneProcedure: After informed consent was obtained, the patient wasplaced supine on the angiography table. Conscious sedation wasinstituted by Dr. Pineda. Intravenous Versed and Fentanyl wereutilized. The patient was monitored using continuouselectrocardiogra m, pulse oximetry and cuff blood pressure measurement.The area of the right neck and upper chest was prepped and draped inthe usual sterile fashion. The previously placed right internaljugular tunneled dialysis catheter was explanted using bluntdissection following the administration of local anesthesia utilizing2% lidocaine. The catheter was removed in its entirety. The tip wassent for culture.The area of the right neck and upper chest was again prepped anddraped in the usual sterile fashion.Initial ultrasound evaluation of the right internal jugular veindemonstrates it to be widely patent with appropriate cardiacpulsatility, indicating patency to the right atrium.After local infiltrative anesthesia with 2% plain lidocaine, the rightinternal jugular vein was accessed under direct ultrasoundvisualization. Permanent ultrasound images were taken and recorded.Attention was then drawn to creation of the subcutaneous tunnel.After additional local infiltrative anesthesia with 2% plainlidocaine, a small dermatotomy was opened just caudal to the rightclavicle. The catheter was then tunneled from its exit site to theright internal jugular dermatotomy. Using guidewire and catheterexchange technique, the subcutaneous tissues were dilated and thedelivery sheath for the PermCath deployed. This was performed underfluoroscopic control. The catheter was then deployed through thedelivery sheath and delivery sheath removed in the standard fashion.This was also performed under fluoroscopic control. The catheter hasits tip at the junction of the superior vena cava and right atrium.Catheter length is 24 cm tip to cuff.The catheter functions appropriately. The catheter was primed withthe appropriate volume of heparinized solution. The right internaljugular dermatotomy was closed with 4-0 Vicryl. The catheter wassecured in position with 3-0 Prolene and sterile dressing applied.At the close of the procedure, hemostasis was maintained. The patientwas then discharged from the angiography area in good condition havingtolerated the procedure well.IMPRESSION:1. Conscious sedation performed by Dr. Pineda.2. Successful explantation of previously placed tunneled rightinternal jugular dialysis catheter.3. Successful combined ultrasound and fluoroscopic-guided placementof a tunneled right internal jugular dialysis catheter. Dictated by [employer]ter: Jag Oneill and Signed by: Elfego Pineda MD---- Electronic Signature on File ----Signed By: Elfego Pineda [email or web address]: 07/25/2018 8:11 AMSigned: 07/25/2018 8:39 AM Reported By: ELFEGO PINEDA M.D. Signed By: ELFEGO PINEDA M.D. Normal [facility] BMPon 05-16-2018 Anion gap 3 molar conc 8 mmol/L Normal 5-16 [facility] Comment on above: Order Comment: Campu s: M Performed By: #### L 500.58878, L500.23219 ####[facility] SEURPZUTLR8552 [place], [place] [address]Bq# [phone] Calcium mass conc 9.5 mg/dL Normal 8.5-10.1 [facility] Comment on above: Order Comment: Campu s: M Performed By: #### L 500.60878, L500.75559 ####[facility] PDIQTVFLMN4766 [place], [place] [address]Gs# [phone] Chloride molar conc 99 mmol/L Normal 98-107 [facility] Comment on above: Order Comment: Campu s: M Performed By: #### L 500.23859, L500.67131 ####[facility] TWQZXQNSSL2923 [place], [place] [address]Jo# [phone] CO2 molar conc 28 mmol/L Normal 21-32 [facility] Comment on above: Order Comment: Campu s: M Performed By: #### L 500.99607, L500.46867 ####[facility] AWOIBMYKBK9758 [place], [place] [address]Tr# [phone] Creatinine mass conc 4.080 mg/dL High 0.510-0.950 [facility] Comment on above: Order Comment: Campu s: M Result Comment: Bea ents receiving either N-Acetylcysteine (NAC) orMetamizole prior to venipuncture, may have falsely depressedresults. Performed By: #### L 500.41902, L500.04903 ####[facility] KCVVEORCXX9784 [place], [place] [address]Sa# [phone] Glucose mass conc 288 mg/dL High 70-100 [facility] Comment on above: Order Comment: Campu s: M Result Comment: 70-1 00- Normal Fasting; 100-125 Impaired Fasting; greaterthan 126 on more than one result- Diabetes. ADA guidelines.Results may be falsely elevated after the administration ofSulfapyridine.Results may be falsely depressed after the administration ofSulfasalazine. Performed By: #### L 500.04205, L500.29160 ####[facility] XRTFAMRLKI7587 [place], [place] [address]Jl# [phone] Potassium molar conc 4.2 mmol/L Normal 3.5-5.1 [facility] Comment on above: Order Comment: Campu s: M Performed By: #### L 500.13350, L500.74664 ####[facility] DHETDLICJR[address] [place], [place] [address]Ph# [phone] Sodium molar conc 135 mmol/L Low 136-145 [facility] Comment on above: Order Comment: Campu s: M Performed By: #### L 500.47891, L500.92288 ####[facility] UNEMMIOLSG3[address] [place], [place] [address]Ph# [phone] Urea nitrogen mass conc 31 mg/dL High 7-26 [facility] Comment on above: Order Comment: Campu s: M Performed By: #### L 500.91456, L500.70139 ####[facility] SPXELAMXRE[address] [place] [address]Zh# [phone] Urea nitrogen/Creatinine mass ratio 8 mg/mg Low 15-24 [facility] Comment on above: Order Comment: Campu s: M Performed By: #### L 500.58718, L500.62307 ####[address] [address]Fr# [phone] CBC W/DIFFon 05-16-2018 BASO ABS 0.10 K/CU MM Normal 0-0.2 [facility] [place] Comment on above: Order Comment: Campu s: M Performed By: #### L 500.22210, L500.92756 ####[place] [address]Ph# [phone] Basophils/100 WBC Auto (Bld) 1.0 % Normal 0-2 [facility] Comment on above: Order Comment: Campu s: M Performed By: #### L 500.47713, L500.77509 ####[address] [address]Pe# [phone] EOS ABS 0.20 K/CU MM Normal 0-0.5 [facility] Comment on above: Order Comment: Campu s: M Performed By: #### L 500.66308, L500.04661 ####[address] [address]Ym# [phone] Eosinophils/100 WBC Auto (Bld) 2.5 % Normal 0-5 [facility] Comment on above: Order Comment: Campu s: M Performed By: #### L 500.74670, L500.41413 ####[address] [address]Ev# [phone] Erythrocyte distribution width Auto Ratio (RBC) 13.7 % Normal 11-14.5 [facility] Comment on above: Order Comment: Campu s: M Performed By: #### L 500.51953, L500.46888 ####[address] [address]Lj# [phone] Hematocrit Auto Volume Fraction (Bld) 30.8 % Low 35.0-47.0 [facility] Comment on above: Order Comment: Campu s: M Performed By: #### L 500.27352, L500.60138 ####[facility] [id number] [place] [address]Tz# [phone] Hemoglobin mass conc (Bld) 10.2 g/dL Low 11.5-15.5 [facility] Comment on above: Order Comment: Campu s: M Performed By: #### L 500.02066, L500.11238 ####[place] [address]Ph# [phone] IMMATR GRAN ABS 0.00 K/CU MM Normal Less than 2 [facility] Comment on above: Order Comment: Campu s: M Performed By: #### L 500.42327, L5.69133 ####[place] [address]Ph# [phone] IMMATURE GRAN % 0.4 % Normal Less than 2 [facility] Comment on above: Order Comment: Campu s: M Performed By: #### L 500.95241, L5.72312 ####[place] [address]Ph# [phone] Lymphocytes Auto #/vol (Bld) 1.60 K/CU MM Normal 0.9-4.4 [facility] Comment on above: Order Comment: Campu s: M Performed By: #### L 500.17427, L5.81327 ####[place] [address]Ph# [phone] Lymphocytes/100 WBC Auto (Bld) 23.4 % Normal 20-40 [facility] Comment on above: Order Comment: Campu s: M Performed By: #### L 500.50012, L500.92825 ####[place] [address]Ph# [phone] MCHC Auto mass conc (RBC) 33.1 g/dL Normal 32.0-36.0 [facility] Comment on above: Order Comment: Campu s: M Performed By: #### L 500.31785, L500.81853 ####[facility] NTRQPDICWS[address] [place] [address]Mh# [phone] MCV Auto Entitic volume (RBC) 89.8 fL Normal 80.0-99.0 [facility] Comment on above: Order Comment: Campu s: M Performed By: #### L 500.87942, L500.13967 ####[place] [address]Ph# [phone] MONO ABS 0.60 K/CU MM Normal 0.1-1.1 [facility] Comment on above: Order Comment: Campu s: M Performed By: #### L 500.38632, L500.76127 ####[place] [address]Ph# [phone] Monocytes/100 WBC Auto (Bld) 8.8 % Normal 2-10 [facility] Comment on above: Order Comment: Campu s: M Performed By: #### L 500.90389, L5.79986 ####[address] [address]Cz# [phone] NEUTROPHIL ABS 4.30 K/CU MM Normal 2.0-8.3 [facility] Comment on above: Order Comment: Campu s: M Performed By: #### L 500.89612, L500.99917 ####[place] [address]Ph# [phone] Neutrophils/100 WBC Auto (Bld) 63.9 % Normal 45-75 [facility] Comment on above: Order Comment: Campu s: M Performed By: #### L 500.18116, L500.71616 ####[address] [address]Tz# [phone] Nucleated RBC/100 WBC Ratio (Bld) 0.3 % Normal Less than 1 [facility] Comment on above: Order Comment: Campu s: M Performed By: #### L 500.13459, L500.70112 ####[facility] [place], [place] [address]Ph# [phone] Platelet mean volume Auto Entitic volume (Bld) 9.3 fL Low 9.4-12.4 [facility] Comment on above: Order Comment: Campu s: M Performed By: #### L 500.52253, L500.05985 ####[place] [address]Ph# [phone] Platelets Auto #/vol (Bld) 184 K/CU MM Normal 150-450 [facility] Comment on above: Order Comment: Campu s: M Performed By: #### L 500.67558, L500.79860 ####[address] [address]Fu# [phone] RBC Auto #/vol (Bld) 3.43 M/CU MM Low 3.90-5.30 [facility] Comment on above: Order Comment: Campu s: M Performed By: #### L 500.76847, L500.20131 ####[address] [address]Br# [phone] WBC Auto #/vol (Bld) 6.7 K/CU MM Normal 4.5-11.0 [facility] Comment on above: Order Comment: Campu s: M Performed By: #### L 500.90515, L500.29243 ####[place] [address]Ph# [phone] GFR ESTon 05-16-2018 IF AMER 14 ML/MIN Normal [facility] Comment on above: Order Comment: Campu s: M Performed By: #### L 500.89570, L500.14455 ####[address] [address]Oj# [phone] IF non-AFR AMER 11 ML/MIN Normal [facility] Comment on above: Order Comment: Campu s: M Performed By: #### L 500.19583, L500.11392 ####[facility] TIBXAFFENJ5087 [place], [place] [address]Xk# [phone] BMPon 05-15-2018 Anion gap 3 molar conc 8 mmol/L Normal 5-16 [facility] Comment on above: Order Comment: Campu s: M Performed By: #### L 500.88989, L500.86912 ####[facility] CUHEFUCFJS4382 [place], [place] [address]Jc# [phone] Calcium mass conc 8.8 mg/dL Normal 8.5-10.1 [facility] Comment on above: Order Comment: Campu s: M Performed By: #### L 500.79278, L500.43488 ####[facility] [id number] [place] [address]Gj# [phone] Chloride molar conc 99 mmol/L Normal 98-107 [facility] Comment on above: Order Comment: Campu s: M Performed By: #### L 500.05808, L500.81275 ####[facility] OGFXGKCFXE[address] [place] [address]Ts# [phone] CO2 molar conc 29 mmol/L Normal 21-32 [facility] Comment on above: Order Comment: Campu s: M Performed By: #### L 500.60377, L500.84976 ####[facility] XZMYBTZBDH5420 [place], [place] [address]Jm# [phone] Creatinine mass conc 3.970 mg/dL High 0.510-0.950 [facility] Comment on above: Order Comment: Campu s: M Result Comment: Bea ents receiving either N-Acetylcysteine (NAC) orMetamizole prior to venipuncture, may have falsely depressedresults. Performed By: #### L 500.73337, L500.12491 ####[facility] QCGWXTSLWB3633 [place], [place] [address]Yc# [phone] Glucose mass conc 244 mg/dL High 70-100 [facility] Comment on above: Order Comment: Campu s: M Result Comment: 70-1 00- Normal Fasting; 100-125 Impaired Fasting; greaterthan 126 on more than one result- Diabetes. ADA guidelines.Results may be falsely elevated after the administration ofSulfapyridine.Results may be falsely depressed after the administration ofSulfasalazine. Performed By: #### L 500.18903, L500.32132 ####[facility] QKIRNDESQP2161 [place], [place] [address]Ae# [phone] Potassium molar conc 4.0 mmol/L Normal 3.5-5.1 [facility] Comment on above: Order Comment: Campu s: M Performed By: #### L 500.37227, L500.72298 ####[address] [address]Qz# [phone] Sodium molar conc 137 mmol/L Normal 136-145 [facility] Comment on above: Order Comment: Campu s: M Performed By: #### L 500.74643, L500.46155 ####[facility] [address]PLG[address] [place] [address]Xx# [phone] Urea nitrogen mass conc 34 mg/dL High 7-26 [facility] Comment on above: Order Comment: Campu s: M Performed By: #### L 500.69034, L500.29241 ####[facility] [id number] [place] [address]Ig# [phone] Urea nitrogen/Creatinine mass ratio 9 mg/mg Low 15-24 [facility] Comment on above: Order Comment: Campu s: M Performed By: #### L 500.61515, L500.51696 ####[facility] LSEPLKLTMH[address] [place] [address]Rf# [phone] CBC W/DIFFon 05-15-2018 BASO ABS 0.00 K/CU MM Normal 0-0.2 [facility] Comment on above: Order Comment: Campu s: M Performed By: #### L 500.48357, L500.53269 ####[facility] ANIAAMIZCZ[address] [place] [address]Jy# [phone] Basophils/100 WBC Auto (Bld) 0.7 % Normal 0-2 [facility] Comment on above: Order Comment: Campu s: M Performed By: #### L 500.86810, L500.68936 ####[place] [address] [place], [place] [address]Jb# [phone] EOS ABS 0.10 K/CU MM Normal 0-0.5 [facility] Comment on above: Order Comment: Campu s: M Performed By: #### L 500.42729, L500.84308 ####[place] [address]Ph# [phone] Eosinophils/100 WBC Auto (Bld) 2.4 % Normal 0-5 [facility] Comment on above: Order Comment: Campu s: M Performed By: #### L 500.00784, L500.46941 ####[place] [address]Ph# [phone] Erythrocyte distribution width Auto Ratio (RBC) 12.8 % Normal 11-14.5 [facility] Comment on above: Order Comment: Campu s: M Performed By: #### L 500.29869, L500.41400 ####[address] [address]Nt# [phone] Hematocrit Auto Volume Fraction (Bld) 24.4 % Low 35.0-47.0 [facility] Comment on above: Order Comment: Campu s: M Performed By: #### L 500.77315, L500.11842 ####[facility] [id number] [place] [address]Sj# [phone] Hemoglobin mass conc (Bld) 8.1 g/dL Low 11.5-15.5 [facility] Comment on above: Order Comment: Campu s: M Performed By: #### L 500.86987, L500.47606 ####[address] [address]Zm# [phone] IMMATR GRAN ABS 0.00 K/CU MM Normal Less than 2 [facility] Comment on above: Order Comment: Campu s: M Performed By: #### L 500.96508, L500.28060 ####[facility] HHJMCKCVCU[address] [place], [place] [address]Ph# [phone] IMMATURE GRAN % 0.4 % Normal Less than 2 [facility] Comment on above: Order Comment: Campu s: M Performed By: #### L 500.77203, L500.68923 ####[place] [address]Ph# [phone] Lymphocytes Auto #/vol (Bld) 1.60 K/CU MM Normal 0.9-4.4 [facility] Comment on above: Order Comment: Campu s: M Performed By: #### L 500.66981, L500.29426 ####[place] [address]Ph# [phone] Lymphocytes/100 WBC Auto (Bld) 29.7 % Normal 20-40 [facility] Comment on above: Order Comment: Campu s: M Performed By: #### L 500.36517, L500.45367 ####[place] [address]Ph# [phone] MCHC Auto mass conc (RBC) 33.2 g/dL Normal 32.0-36.0 [facility] Comment on above: Order Comment: Campu s: M Performed By: #### L 500.88774, L500.01342 ####[facility] CLYPLZCUPA[address] [place], [place] [address]Ph# [phone] MCV Auto Entitic volume (RBC) 89.7 fL Normal 80.0-99.0 [facility] Comment on above: Order Comment: Campu s: M Performed By: #### L 500.44554, L500.06332 ####[place] [address]Ph# [phone] MONO ABS 0.50 K/CU MM Normal 0.1-1.1 [facility] Comment on above: Order Comment: Campu s: M Performed By: #### L 500.68506, L500.47159 ####[facility] VKBSRCDZVW3879 [place] [address]Ph# [phone] Monocytes/100 WBC Auto (Bld) 9.9 % Normal 2-10 [facility] Comment on above: Order Comment: Campu s: M Performed By: #### L 500.94598, L500.50883 ####[place] [address]Ph# [phone] NEUTROPHIL ABS 3.10 K/CU MM Normal 2.0-8.3 [facility] Comment on above: Order Comment: Campu s: M Performed By: #### L 500.84651, L500.61148 ####[facility] HUWIYBVDXY[address] [place], [place] [address]Ph# [phone] Neutrophils/100 WBC Auto (Bld) 56.9 % Normal 45-75 [facility] Comment on above: Order Comment: Campu s: M Performed By: #### L 500.04087, L500.35110 ####[facility] ASRZICKHOY[address] [place], [place] [address]Ph# [phone] Nucleated RBC/100 WBC Ratio (Bld) 0.0 % Normal Less than 1 [facility] Comment on above: Order Comment: Campu s: M Performed By: #### L 500.28223, L500.66958 ####[facility] WJYQZKZVRF[address] [place], [place] [address]Ph# [phone] Platelet mean volume Auto Entitic volume (Bld) 9.1 fL Low 9.4-12.4 [facility] Comment on above: Order Comment: Campu s: M Performed By: #### L 500.53458, L500.83444 ####[facility] DLYMDLCHHM[address] [place], [place] [address]Ph# [phone] Platelets Auto #/vol (Bld) 163 K/CU MM Normal 150-450 [facility] Comment on above: Order Comment: Campu s: M Performed By: #### L 500.08174, L500.45383 ####[facility] DSARAMXUHP1750 [place], [place] [address]Ab# [phone] RBC Auto #/vol (Bld) 2.72 M/CU MM Low 3.90-5.30 [facility] [place] Comment on above: Order Comment: Campu s: M Performed By: #### L 500.94980, L500.43139 ####[facility] W[address]MYHW[address] [place] [address]Tx# [phone] WBC Auto #/vol (Bld) 5.5 K/CU MM Normal 4.5-11.0 [facility] Comment on above: Order Comment: Campu s: M Performed By: #### L 500.45288, L500.42835 ####[facility] JOEHUGJREA[address] [place] [address]Ce# [phone] GFR ESTon 05-15-2018 IF AMER 14 ML/MIN [facility] Comment on above: Order Comment: Campu s: M Performed By: #### L 500.49012, L500.95221 ####[facility] W[address]ZCM[address]JJX[address] [place] [address]Jd# [phone] IF non-AFR AMER 12 ML/MIN [facility] Comment on above: Order Comment: Campu s: M Performed By: #### L 500.10640, L500.50986 ####[facility] AWURBRHOLX[address] [place] [address]Xd# [phone] GLUCOSE METERon 05-15-2018 Glucose mass conc 132 mg/dL High 85-125 [facility] Glucose mass conc 323 mg/dL High 85-125 [facility] Glucose mass conc 241 mg/dL High 85-125 [facility] PROG.NEPHon 05-15-2018 Protein mass conc [facility] Patient Name: SANDY BHATTI [id number] [place] Date of : [place] [address] Unit Number: [id number] Number: [id number] Note-Nephrology Patient Status: ADM INoAttending Doctor: Anderson Rubio MDService Date: 05/15/18 1317Progress Note-Nephrology([facility])Subj ectiveSubjective:pt feels goodonly ambulating in the roomno more chest painObjectiveVital Signs:Vital Signs (Last)ResultDate TimePulse Bq1167/11 1000B/P130/5709/11 6393Khxj75.209/11 0801Zzkdt3472/11 2177Pvew0797/11 1000O2 DeliveryROOM AIR05/14 1640IandO 24 Hour Xsumhxt79/11 0000Intake Gkvrc725Hpqrct Suudb0825Ztznjcv-7510Ytlng e, Pbit416Uugdtt1RqetwtobpcVd idsOutput, Gdyrd3911Gxuqud, Tsehe0Clodql, Vvsnh292Nvpbaps572 lbWeightExam:BMGg2Zm pallor/IcterusNo JVD appreciated.Chest equal in expansion. No rales/rhonchi appreciated.S1S2 heard. No murmur/rub appreciated.Abd soft. Non-distended. Non-tender. Bowel sounds heard.Bilateral lower extremities: No edema/cyanosis.Central Access:Medications:Medicat ions CurrentSig/SchStart timeLastMedicationDoseRout eStop TimeStatusAdminAcetaminoph en650 FND8KAIE PRN09/10 0900AC(TYLENOL TAB)POAmlodipine Rgbdogcb45 YVTZLQ55/08 9179JQ02/11(NORVASC TAB)NV7520Nfkglef56 LJDCJADF52/10 1516YF91/11(ECOTRIN TAB.EC)NS2111Jesnilqcwbzh Hetjcni21 MGQHS09/10 8645OK01/10(LIPITOR TAB)ZI1727Qzgoups Acetate1,334 LJEWBUB46/07 7663VB46/11(PHOSLO TAB)QD7133Brngzwouv HCl0.3 MGBID09/07 5764ZW20/11(CATAPRES TAB)NI2277Sfqkdlk Alfa20,000 UNITONCALL PRN09 0900AC(Procrit/Epogen Vial)IVHeparin Sodium5,000 FLEYNMC57 8648WH59(Porcine)LZ0810 (HEPARIN D.SYR)Hydrocodone Bitart/1 ASOAN1QCKB PRN09/ 0685IT83/07AcetaminophenPO 1901(NORCO 5-325 TAB)Insulin Human LisproSee KfcwVCKM66 4695FV41/11(humaLOG/novoLO G PEN)Insts (1)IQ9777Rgdqtiwgts48 XMJQKJ29/ 5553VT23/89PdiczwekkyoGY92 17(IMDUR TAB.SA)Levothyroxine Sodium0.112 EPAUSEJA02/ 0766LJ37/11(SYNTHROID TAB)HO8673Jzwwapiyl9 MGQHSPRN PRN09/ 5063BY9610(MELATONIN TAB)FS4712Aqxzjdsfqq Tartrate5 PPX1BESX PRN09/08 6828JM35/08(LOPRESSOR AMP)ZX1385Pgxtqbmaje Fjhtsryd69 MGBID09/ 9364MB44/11(LOPRESSOR TAB)MA2760Twiaiuhdrudtz8.4 GBI9JTLM PRN09 1400AC(NITROSTAT 0.4MGSLTAB.SL)Sodium Chloride1,000 YOLDZU07/ 0900AC(Sodium ChlorideIV0.9%)Vitamin B Complex/1 YYYWEKZ93/08 6229SG49/11Folic [id number](NEPHROCAPS/NEPH ROVITE CAP)Dose Instructions:(1)Insulin Human Lispro (humaLOG/novoLOG PEN):1-5 UnitsLab Results:Lab 24hr (CBC/BMP Fishbone)05/15/18 1104:Whole Bld Glucose 323 H005/15/18 0735:Whole Bld Glucose 241 H005/15/18 0437:[Embedded Image Not Available]Anion Gap 8, Est GFR ( Amer) 14, Est GFR (Non-Af Amer) 12, BUN/Creatinine Ratio 9 L, Glucose 244 H, Total Calcium 8.8, RBC 2.72 L, MCV 89.7, MCHC 33.2, RDW 12.8, MPV 9.1 L,Immature Gran % (Auto) 0.4, Abs Immat Gran (auto) 0.00, Seg Neutrophils % 56.9,Lymphocytes % 29.7, Monocytes % 9.9, Eosinophils % 2.4, Basophils % 0.7, Neutrophils #3.10, Lymphocytes # 1.60, Monocytes # 0.50, Eosinophils # 0.10, Basophils # 0.00,Nucleated RBCs 0.2:Whole Bld Glucose 292 H005/14/18 1620:Whole Bld Glucose 206 HAssessment/PlanAssessment /Problem List:1. Chest painheart cath yesterday2. ESRD (end stage renal disease)mwf jose to have avf manipulation tomorrow - she doesn't know what timeto have perm cath replacement ll dialyze today for volume and to get blood and in case she cannot make her dialysistomorrow,.3. Anemiato be transfused today w dialysisepo yest w dialysis4. Hypertensionbp well controlled5. HyperkalemiaDisclaimerThis dictation was created using voice recognition software.Phonetic and/or minor grammatical errors may exist.eSign Date and TimeArthur Ibrahim MD Verified/Reviewed by 05/15/18 1320 [facility] Protein mass conc [facility] RBC NO Grupo 05-15-2018 RBC Auto #/vol (Bld) 1 10*6/uL Normal [facility] [place] TSon 05-15-2018 ABO and Rh group Nom (Bld) A POSITIVE [facility] Comment on above: Order Comment: Nenita Perez BMPon 05-14-2018 Anion gap 3 molar conc 12 mmol/L Normal 5-16 [facility] Comment on above: Order Comment: Nenita Perez Performed By: #### L 500.29346, L500.85440 ####[facility] [id number] [place], [place] [address]Fj# [phone] Calcium mass conc 9.4 mg/dL Normal 8.5-10.1 [facility] Comment on above: Order Comment: Campu s: M Performed By: #### L 500.71969, L500.14439 ####[facility] [id number] [place], [place] [address]Gp# [phone] Chloride molar conc 103 mmol/L Normal 98-107 [facility] [place] Comment on above: Order Comment: Campu s: M Performed By: #### L 500.29891, L500.00256 ####[facility] [id number] [place], [place] [address]Fi# [phone] CO2 molar conc 23 mmol/L Normal 21-32 [facility] [place] Comment on above: Order Comment: Campu s: M Performed By: #### L 500.71478, L500.21993 ####[facility] [id number] [place], [place] [address]Fu# [phone] Creatinine mass conc 5.950 mg/dL High 0.510-0.950 [facility] [place] Comment on above: Order Comment: Campu s: M Result Comment: Bea ents receiving either N-Acetylcysteine (NAC) orMetamizole prior to venipuncture, may have falsely depressedresults. Performed By: #### L 500.83384, L500.32714 ####[facility] [id number] [place], [place] [address]Pj# [phone] Glucose mass conc 234 mg/dL High 70-100 [facility] Comment on above: Order Comment: Campu s: M Result Comment: 70-1 00- Normal Fasting; 100-125 Impaired Fasting; greaterthan 126 on more than one result- Diabetes. ADA guidelines.Results may be falsely elevated after the administration ofSulfapyridine.Results may be falsely depressed after the administration ofSulfasalazine. Performed By: #### L 500.40205, L500.26500 ####[facility] [id number] [place], [place] [address]Uk# [phone] Potassium molar conc 6.1 mmol/L Critically high 3.5-5.1 [facility] Comment on above: Order Comment: Campu s: M Result Comment: MODE RATELY HEMOLYZED FINGERSTICK NURSE SAID TO ELECTRIC UTILITY LINEWORKER ANDIF WANTED REDRAW THEY WOULD PUT NEW ORDER INSCA Performed By: #### L 500.33537, L500.86539 ####[facility] [id number] [place], [place] [address]Ny# [phone] Sodium molar conc 138 mmol/L Normal 136-145 [facility] [place] Comment on above: Order Comment: Campu s: M Performed By: #### L 500.45039, L500.35616 ####[address] [address]Oa# [phone] Urea nitrogen mass conc 56 mg/dL High 7-26 [facility] Comment on above: Order Comment: Campu s: M Performed By: #### L 500.02184, L500.47375 ####[address] [address]Cx# [phone] Urea nitrogen/Creatinine mass ratio 9 mg/mg Low 15-24 [facility] Comment on above: Order Comment: Campu s: M Performed By: #### L 500.09282, L500.74441 ####[address] [address]Ur# [phone] CBC W/DIFFon 05-14-2018 BASO ABS 0.10 K/CU MM Normal 0-0.2 [facility] [place] Comment on above: Order Comment: Campu s: M Performed By: #### L 500.20434, L500.04868 ####[facility] [id number] [place] [address]Ue# [phone] Basophils/100 WBC Auto (Bld) 1.3 % Normal 0-2 [facility] Comment on above: Order Comment: Campu s: M Performed By: #### L 500.67600, L500.31030 ####[facility] [id number] [place] [address]Fn# [phone] EOS ABS 0.20 K/CU MM Normal 0-0.5 [facility] Comment on above: Order Comment: Campu s: M Performed By: #### L 500.97126, L500.99354 ####[facility] [id number] [place], [place] [address]Jo# [phone] Eosinophils/100 WBC Auto (Bld) 2.8 % Normal 0-5 [facility] [place] Comment on above: Order Comment: Campu s: M Performed By: #### L 500.15160, L500.96085 ####[place] [address]Ph# [phone] Erythrocyte distribution width Auto Ratio (RBC) 12.7 % Normal 11-14.5 [facility] Comment on above: Order Comment: Campu s: M Performed By: #### L 500.84215, L500.01060 ####[address] [address]Xy# [phone] Hematocrit Auto Volume Fraction (Bld) 27.4 % Low 35.0-47.0 [facility] Comment on above: Order Comment: Campu s: M Performed By: #### L 500.90297, L500.77163 ####[address] [address]Hh# [phone] Hemoglobin mass conc (Bld) 9.1 g/dL Low 11.5-15.5 [facility] Comment on above: Order Comment: Campu s: M Performed By: #### L 500.21201, L500.50998 ####[facility] [id number] [place] [address]Em# [phone] IMMATR GRAN ABS 0.20 K/CU MM Normal Less than 2 [facility] [place] Comment on above: Order Comment: Campu s: M Performed By: #### L 500.32105, L500.08545 ####[facility] [id number] [place] [address]Mj# [phone] IMMATURE GRAN % 2.5 % Normal Less than 2 [facility] Comment on above: Order Comment: Campu s: M Performed By: #### L 500.49219, L500.15384 ####[facility] [id number] [place] [address]Ko# [phone] Lymphocytes Auto #/vol (Bld) 2.50 K/CU MM Normal 0.9-4.4 [facility] Comment on above: Order Comment: Campu s: M Performed By: #### L 500.30869, L500.68263 ####[place] [address]Ph# [phone] Lymphocytes/100 WBC Auto (Bld) 35.8 % Normal 20-40 [facility] Comment on above: Order Comment: Campu s: M Performed By: #### L 500.53345, L500.14910 ####[place] [address]Ph# [phone] MCHC Auto mass conc (RBC) 33.2 g/dL Normal 32.0-36.0 [facility] [place] Comment on above: Order Comment: Campu s: M Performed By: #### L 500.01407, L500.66571 ####[place] [address]Ph# [phone] MCV Auto Entitic volume (RBC) 88.7 fL Normal 80.0-99.0 [facility] Comment on above: Order Comment: Campu s: M Performed By: #### L 500.82825, L500.86055 ####[place] [address]Ph# [phone] MONO ABS 0.50 K/CU MM Normal 0.1-1.1 [facility] Comment on above: Order Comment: Campu s: M Performed By: #### L 500.78135, L500.42275 ####[address] [address]Nn# [phone] Monocytes/100 WBC Auto (Bld) 7.2 % Normal 2-10 [facility] Comment on above: Order Comment: Campu s: M Performed By: #### L 500.08583, L500.08661 ####[facility] [id number] [place] [address]Tj# [phone] NEUTROPHIL ABS 3.60 K/CU MM Normal 2.0-8.3 [facility] Comment on above: Order Comment: Campu s: M Performed By: #### L 500.10816, L500.62818 ####[place] [address]Ph# [phone] Neutrophils/100 WBC Auto (Bld) 50.4 % Normal 45-75 [facility] Comment on above: Order Comment: Campu s: M Performed By: #### L 500.92835, L500.06852 ####[address] [address]Mi# [phone] Nucleated RBC/100 WBC Ratio (Bld) 0.3 % Normal Less than 1 [facility] Comment on above: Order Comment: Campu s: M Performed By: #### L 500.03543, L500.86179 ####[address] [address]Vs# [phone] Platelet mean volume Auto Entitic volume (Bld) 9.4 fL Normal 9.4-12.4 [facility] Comment on above: Order Comment: Campu s: M Performed By: #### L 500.65138, L500.67656 ####[facility] [id number] [place] [address]Xr# [phone] Platelets Auto #/vol (Bld) 188 K/CU MM Normal 150-450 [facility] Comment on above: Order Comment: Campu s: M Performed By: #### L 500.23579, L500.03705 ####[address] [address]Nt# [phone] RBC Auto #/vol (Bld) 3.09 M/CU MM Low 3.90-5.30 [facility] [place] Comment on above: Order Comment: Campu s: M Performed By: #### L 500.32820, L500.01570 ####[facility] [id number] [place], [place] [address]Rc# [phone] WBC Auto #/vol (Bld) 7.1 K/CU MM Normal 4.5-11.0 [facility] [place] Comment on above: Order Comment: Campu s: M Performed By: #### L 500.49604, L500.38391 ####[facility] [id number] [place], [place] [address]Lj# [phone] GFR ESTon 05-14-2018 IF AMER 9 ML/MIN [facility] Comment on above: Order Comment: Campu s: M Performed By: #### L 500.69964, L500.15640 ####[facility] [id number] [place] [address]Sc# [phone] IF non-AFR AMER 7 ML/MIN [facility] Comment on above: Order Comment: Campu s: M Performed By: #### L 500.83078, L500.97524 ####[facility] QZFNVDWYZP7693 [place], [place] [address]Kd# [phone] GLUCOSE METERon 05-14-2018 Glucose mass conc 292 mg/dL High 85-125 [facility] Glucose mass conc 206 mg/dL High 85-125 [facility] Glucose mass conc 158 mg/dL High 85-125 [facility] [place] Glucose mass conc 284 mg/dL High 85-125 [facility] [place] Migel 05-14-2018 Potassium molar conc 5.6 mmol/L High 3.5-5.1 [facility] Comment on above: Order Comment: Campu s: M Performed By: #### L 500.43820, L500.94158 ####[facility] RHDXCUTVVW6678 [place], [place] [address]Gw# [phone] PROG IMSon 05-14-2018 Protein mass conc [facility] Patient Name: SANDY BHATTI [id number] [employer] [place] Date [place] : [address] [address] Unit Number: [id number] Number: [id number] Note-Hospitalist Patient Status: ADM INoAttending Doctor: Anderson Rubio MDService Date: 05/14/18 1400Chief ComplaintChief ComplaintChest painSubjectiveS: (2 ROS minimum)Patient seen in hemodialysis. Feeling lightheaded. Blood pressure recorded 80s over 60s.Patient is being given fluid bolus. Blood pressure improved to 150s now. Patient deniesshortness of breath no chest pain.Objective (ROS)Nursing VitalsVital Signs (Last)ResultDate TimePulse Od9591/10 0756B/P142/6209/10 6845Zvbk21.609/10 5193Ejgmy5931/10 3606Hovv7681/10 0756O2 DeliveryROOM AIR09/07 1814On examinationHEENT pupils are equal and reactive to light and accommodation. No pallor. No icterusNeck is suppleCardiovascular system S1-S2 normal. Systolic murmur heardChest clear bilateralAbdomen soft . Nontender. Bowel sounds present. Right groin dressing is seenExtremities trace edema bilateral lower extremitiesPatient is alert awake oriented to time place personNo distressDiagnostic Data:Lab 24hr (CBC/BMP [facility])05/14/18 1240:Whole Bld Glucose 158 H005/14/18 0706:Whole Bld Glucose 284 H005/14/18 0638:[Embedded Image Not Available]05/14/18 0453:[Embedded Image Not Available]Anion Gap 12, Est GFR ( Amer) 9, Est GFR (Non-Af Amer) 7, BUN/Creatinine Ratio 9 L,Glucose 234 H, Total Calcium 9.4, RBC 3.09 L, MCV 88.7, MCHC 33.2, RDW 12.7, MPV 9.4,Immature Gran % (Auto) 2.5, Abs Immat Gran (auto) 0.20, Seg Neutrophils % 50.4,Lymphocytes % 35.8, Monocytes % 7.2, Eosinophils % 2.8, Basophils % 1.3, Neutrophils #3.60, Lymphocytes # 2.50, Monocytes # 0.50, Eosinophils # 0.20, Basophils # 0.10,Nucleated RBCs 0.309/05/22 2125:Whole Bld Glucose 228 H09/05/22 1635:Whole Bld Glucose 254 HAssessment and PlanConclusion1. Chest painAssessment and planChest pain with abnormal stress test. Coronary artery disease. Patient underwent cardiaccatheterization this morning.FINDINGS:1. Left main: No significant disease.2. LAD: There is mild diffuse disease in the distal LAD. There also isdisease in the diagonal branch which is mild and diffuse.3. Left circumflex: No significant disease in the circumflex until down to thedistal portion. After the takeoff of a large second OM, in the circumflex proper,there is a stenosis of roughly 60% at the ostium. This is a small artery.4. Ramus intermedius: This is a small artery. There is a high-grade lesionof only 70% at the ostium.5. RCA: Large dominant artery. No significant blockage is seen. There is amild 30% stenosis proximally.6. LV function: Ejection fraction was hyperdynamic with EF of 70% to 75%.This is diastolic dysfunction.Recommended medical management per cardiology. Patient started on Imdur. Currently chestpain-free. On beta chris, aspirinInsulin-dependent diabetes mellitus continue home medications with sliding scale insulinand diabetic dietHypertension continue home medication. Blood pressure is better. Continue currentmedications. Patient reports that sometimes during dialysis her blood pressure drops low.Depression, hyperlipidemia and hypothyroidism continue medicationChronic anemia stableDVT prophylaxis with heparin subcutaneousHyperkalemia patient is currently getting hemodialysisDC home in a.m. if stableDisclaimerThis dictation was created using voice recognition software.Phonetic and/or minor grammatical errors may exist.eSign Date and TimeAnderson Rubio MD Verified/Reviewed by 05/14/18 1403 [facility] [place] Protein mass [facility] [place] PROG.NEPHon 05-14-2018 Protein mass [facility] Patient Name: SANDY BHATTI [id number] [employer] [place] Date of : [address] [address] Unit Number: [id number] Number: [id number] Note-Nephrology Patient Status: ADM INoAttending Doctor: Anderson Rubio MDService Date: 05/14/18 0721Progress Note-Nephrology([facility])Subj ectiveSubjective:no more chest pain through the nightbreathing comfortably lying flatObjectiveVital Signs:Vital Signs (Last)ResultDate TimePulse Zq9387/10 0644B/P142/6209/10 6092Ppap97.609/10 2619Zatpn5028/10 4882Olax6865/10 0644O2 DeliveryROOM AIR05/11 1814IandO 24 Hour Kjnssnk27/10 0000Intake Wsbyd5546Juwyqp Mxfjz153Ylsoujo761Wignpy, Hzbt9326Iglobu9AhncunhegwY oidsOutput, Powku7Giaalx, Ycstc045Njirzjy219 lbWeightExam:CPZy4Si pallor/IcterusNo JVD appreciated.Chest equal in expansion. No rales/rhonchi appreciated.S1S2 heard. No murmur/rub appreciated.Abd soft. Non-distended. Non-tender. Bowel sounds heard.Bilateral lower extremities: No edema/cyanosis.Central Access:Medications:Medicat ions CurrentSig/SchStart timeLastMedicationDoseRout eStop TimeStatusAdminAmlodipine Xubaggox39 SXLIHQ52/08 3372EA59/09(NORVASC TAB)HV9297Ttbhawb893 ZFXWRYLA75/ 4020NF07/09(ECOTRIN TAB.EC)EQ5552Ohknvigcsppe Agfnlfz91 MGQHS09/07 9897ZO99/09(LIPITOR TAB)DG3323Chutstc Acetate1,334 ZYDJRJM27/07 9466DT47/09(PHOSLO TAB)ME2480Zspwookoz HCl0.3 MGBID09/07 1147BK36/09(CATAPRES TAB)LN3597Iojnbyq Alfa20,000 UNITONCALL PRN09/08 0900AC(Procrit/Epogen Vial)IVHeparin Sodium5,000 NUBAQJS17/07 2540JE74/09(Porcine)MD4514 (HEPARIN D.SYR)Hydrocodone Bitart/1 MFHLO7EIIT PRN09/07 8776IL49/07AcetaminophenPO 1901(NORCO 5-325 TAB)Insulin Human LisproSee DmnhFSFJ43 2599GW83/09(humaLOG/novoLO G PEN)Insts (1)ZC5890Hvubjdhazczww Sodium0.112 ZRNGKPNY32/08 1753SJ07/10(SYNTHROID TAB)CI5558Xpifpfpix5 MGQHSPRN PRN09/10 1898TV73/10(MELATONIN TAB)EN7793Gxahjlshqk Tartrate5 WDP5NPJU PRN09/08 3516PV56/08(LOPRESSOR AMP)PU1832Olywcnwyqg Rpfulkxi43 MGBID09/07 2549ER40/09(LOPRESSOR TAB)SJ1136Rzeppstevbcls1 EYFCX1Q04/ 2515AK63/10(NITRO-BID T.OINT)ZJ3643Okrjojkbqjhpz 0.4 UKU3VDYA PRN09 1400AC(NITROSTAT 0.4MGSLTAB.SL)Vitamin B Complex/1 UHWOSMK38/08 6741II49/09Folic PfddBE6432(NEPHROCAPS/NEPH ROVITE CAP)Dose Instructions:(1)Insulin Human Lispro (humaLOG/novoLOG PEN):1-5 UnitsLab Results:Lab 24hr (CBC/BMP [facility])05/14/18 0638:[Embedded Image Not Available]05/14/18 0453:[Embedded Image Not Available]Anion Gap 12, Est GFR ( Amer) 9, Est GFR (Non-Af Amer) 7, BUN/Creatinine Ratio 9 L,Glucose 234 H, Total Calcium 9.4, RBC 3.09 L, MCV 88.7, MCHC 33.2, RDW 12.7, MPV 9.4,Immature Gran % (Auto) 2.5, Abs Immat Gran (auto) 0.20, Seg Neutrophils % 50.4,Lymphocytes % 35.8, Monocytes % 7.2, Eosinophils % 2.8, Basophils % 1.3, Neutrophils #3.60, Lymphocytes # 2.50, Monocytes # 0.50, Eosinophils # 0.20, Basophils # 0.10,Nucleated RBCs 0.309 2125:Whole Bld Glucose 228 H09 1635:Whole Bld Glucose 254 H005/13/18 1134:Whole Bld Glucose 263 H005/13/18 0743:Whole Bld Glucose 169 HAssessment/PlanAssessment /Problem List:1. Chest painfor heart cath today2. ESRD (end stage renal disease)dialysis today3. Anemiaepo w dialysis4. Hypertensionbp controlled5. Hyperkalemiawill dose some kayexalatecorrect w dialysismay not want to cath w high kDisclaimerThis dictation was created using voice recognition software.Phonetic and/or minor grammatical errors may exist.eSign Date and Arthur Murrieta MD Verified/Reviewed by 05/14/18 0723 Normal [facility] BMPon 05-13-2018 Anion gap 3 molar conc 8 mmol/L Normal 5-16 [facility] Comment on above: Order Comment: Calebu s: M Performed By: #### L 200.98813 ####[facility] [id number] [place] [address]Mg# [phone] Calcium mass conc 9.1 mg/dL Normal 8.5-10.1 [facility] Comment on above: Order Comment: Calebu s: M Performed By: #### L 200.03489 ####[facility] [id number] [place] [address]Uj# [phone] Chloride molar conc 104 mmol/L Normal 98-107 [facility] Comment on above: Order Comment: Campu s: M Performed By: #### L 200.00517 ####[facility] [id number] [place] [address]Vp# [phone] CO2 molar conc 29 mmol/L Normal 21-32 [facility] Comment on above: Order Comment: Calebu s: M Performed By: #### L 200.26737 ####[facility] CIQULZUTEE1141 [place], [place] [address]Wt# [phone] Creatinine mass conc 4.840 mg/dL High 0.510-0.950 [facility] Comment on above: Order Comment: Calebu s: M Result Comment: Bea ents receiving either N-Acetylcysteine (NAC) orMetamizole prior to venipuncture, may have falsely depressedresults. Performed By: #### L 200.63691 ####[facility] GBMTTTWNEI1362 [place], [place] [address]Sq# [phone] Glucose mass conc 161 mg/dL High 70-100 [facility] Comment on above: Order Comment: Campu s: M Result Comment: 70-1 00- Normal Fasting; 100-125 Impaired Fasting; greaterthan 126 on more than one result- Diabetes. ADA guidelines.Results may be falsely elevated after the administration ofSulfapyridine.Results may be falsely depressed after the administration ofSulfasalazine. Performed By: #### L 200.37464 ####[facility] UVLJVOGXBM6326 [place], [place] [address]Ba# [phone] Potassium molar conc 5.0 mmol/L Normal 3.5-5.1 [facility] Comment on above: Order Comment: Campu s: M Performed By: #### L 200.33552 ####[facility] SNZJJRUVSS8164 [place], [place] [address]Ab# [phone] Sodium molar conc 140 mmol/L Normal 136-145 [facility] Comment on above: Order Comment: Campu s: M Performed By: #### L 200.21053 ####[facility] NCZIBZLLDA6644 [place], [place] [address]Ek# [phone] Urea nitrogen mass conc 39 mg/dL High 7-26 [facility] Comment on above: Order Comment: Campu s: M Performed By: #### L 200.15191 ####[facility] STLCWXTXYY3675 [place], [place] [address]Db# [phone] Urea nitrogen/Creatinine mass ratio 8 mg/mg Low 15-24 [facility] Comment on above: Order Comment: Campu s: M Performed By: #### L 200.61105 ####[facility] UMQYWJKHZW4921 [place], [place] [address]Xr# [phone] CBC W/DIFFon 05-13-2018 BASO ABS 0.10 K/CU MM Normal 0-0.2 [facility] Comment on above: Order Comment: Campu s: M Performed By: #### L 200.74793 ####[facility] [id number] [place] [address]Yc# [phone] Basophils/100 WBC Auto (Bld) 1.2 % Normal 0-2 [facility] Comment on above: Order Comment: Campu s: M Performed By: #### L 200.63286 ####[address] [address]Qi# [phone] EOS ABS 0.10 K/CU MM Normal 0-0.5 [facility] Comment on above: Order Comment: Campu s: M Performed By: #### L 200.77466 ####[address] [address]Ca# [phone] Eosinophils/100 WBC Auto (Bld) 2.7 % Normal 0-5 [facility] Comment on above: Order Comment: Campu s: M Performed By: #### L 200.16520 ####[address] [address]Qm# [phone] Erythrocyte distribution width Auto Ratio (RBC) 12.7 % Normal 11-14.5 [facility] Comment on above: Order Comment: Campu s: M Performed By: #### L 200.41466 ####[address] [address]Rg# [phone] Hematocrit Auto Volume Fraction (Bld) 28.0 % Low 35.0-47.0 [facility] Comment on above: Order Comment: Campu s: M Performed By: #### L 200.30440 ####[address] [address]Ox# [phone] Hemoglobin mass conc (Bld) 9.1 g/dL Low 11.5-15.5 [facility] Comment on above: Order Comment: Campu s: M Performed By: #### L 200.43788 ####[facility] [id number] [place], [place] [address]Ph# [phone] IMMATR GRAN ABS 0.00 K/CU MM Normal Less than 2 [facility] Comment on above: Order Comment: Campu s: M Performed By: #### L 200.90548 ####[place] [address]Ph# [phone] IMMATURE GRAN % 0.2 % Normal Less than 2 [facility] Comment on above: Order Comment: Campu s: M Performed By: #### L 200.84123 ####[facility] [id number] [place], [place] [address]Ph# [phone] Lymphocytes Auto #/vol (Bld) 1.70 K/CU MM Normal 0.9-4.4 [facility] Comment on above: Order Comment: Campu s: M Performed By: #### L 200.12769 ####[facility] [id number] [place], [place] [address]Ph# [phone] Lymphocytes/100 WBC Auto (Bld) 32.5 % Normal 20-40 [facility] Comment on above: Order Comment: Campu s: M Performed By: #### L 200.97298 ####[facility] [id number] [place], [place] [id number]# [phone] MCHC Auto mass conc (RBC) 32.5 g/dL Normal 32.0-36.0 [facility] [place] Comment on above: Order Comment: Campu s: M Performed By: #### L [id number] ####[facility] [id number] [place], [place] [id number]# [phone] MCV Auto Entitic volume (RBC) 91.5 fL Normal 80.0-99.0 [facility] [place] Comment on above: Order Comment: Campu s: M Performed By: #### L [id number] ####[facility] [id number] [place], [place] [address]Ph# [phone] MONO ABS 0.40 K/CU MM Normal 0.1-1.1 [facility] [place] Comment on above: Order Comment: Campu s: M Performed By: #### L [id number] ####[facility] [id number] [place], [place] [address]Hp# [phone] Monocytes/100 WBC Auto (Bld) 7.9 % Normal 2-10 [facility] Comment on above: Order Comment: Campu s: M Performed By: #### L 200.75548 ####[facility] [id number] [place], [place] [address]Ph# [phone] NEUTROPHIL ABS 2.90 K/CU MM Normal 2.0-8.3 [facility] Comment on above: Order Comment: Campu s: M Performed By: #### L 200.65455 ####[place] [address]Ph# [phone] Neutrophils/100 WBC Auto (Bld) 55.5 % Normal 45-75 [facility] Comment on above: Order Comment: Campu s: M Performed By: #### L 200.93450 ####[facility] [id number] [place], [place] [address]Ph# [phone] Nucleated RBC/100 WBC Ratio (Bld) 0.0 % Normal Less than 1 [facility] Comment on above: Order Comment: Campu s: M Performed By: #### L 200.68742 ####[facility] ZQWAJEAGPX8349[address] [place], [place] [address]Ph# [phone] Platelet mean volume Auto Entitic volume (Bld) 9.1 fL Low 9.4-12.4 [facility] Comment on above: Order Comment: Campu s: M Performed By: #### L 200.07004 ####[facility] [id number] [place] [address]Ju# [phone] Platelets Auto #/vol (Bld) 190 K/CU MM Normal 150-450 [facility] Comment on above: Order Comment: Campu s: M Performed By: #### L 200.75956 ####[facility] XEUXXRJEVZ9273 [place], [place] [address]Hg# [phone] RBC Auto #/vol (Bld) 3.06 M/CU MM Low 3.90-5.30 [facility] [place] Comment on above: Order Comment: Campu s: M Performed By: #### L 200.48687 ####[facility] [id number] [place], [place] [address]Xi# [phone] WBC Auto #/vol (Bld) 5.2 K/CU MM Normal 4.5-11.0 [facility] Comment on above: Order Comment: Campu s: M Performed By: #### L 200.80632 ####[facility] QKFYUCZNNO9170 [place], [place] [address]Cu# [phone] GFR ESTon 05-13-2018 IF AMER 11 ML/MIN Normal [facility] Comment on above: Order Comment: Campu s: M Performed By: #### L 200.56140 ####[facility] OMIZQQAYKT6819 [place], [place] [address]Cw# [phone] IF non-AFR AMER 9 ML/MIN [facility] Comment on above: Order Comment: Campu s: M Performed By: #### L 200.14910 ####[facility] [id number] [place] [address]Cu# [phone] GLUCOSE METERon 05-13-2018 Glucose mass conc 228 mg/dL High 85-125 [facility] Glucose mass conc 254 mg/dL High 85-125 [facility] Glucose mass conc 263 mg/dL High 85-125 [facility] Glucose mass conc 169 mg/dL High 85-125 [facility] Glucose mass conc 294 mg/dL High 85-125 [facility] IRON PANELon 05-13-2018 Iron mass conc 90 ug/dL Normal 50-170 [facility] Comment on above: Order Comment: Calebu s: M Result Comment: Bea ents treated with metal-binding drugs (e.g.deferoxamine)may have depressed iron values, as chelated iron may notproperly react in the Siemens iron assay. Performed By: #### L 500.76257, L500.25445 ####[facility] PFPJKGYIBT5048 [place], [place] [address]Yp# [phone] IRON SAT 30 % Normal 22-44 [facility] Comment on above: Order Comment: Nenita s: M Performed By: #### L 500.12366, L500.04609 ####[facility] FNOJVDTILV4662 [place], [place] [address]Mi# [phone] TIBC 305 UG/DL Normal 221-481 [facility] Comment on above: Order Comment: Nenita s: M Performed By: #### L 500.55764, L500.15075 ####[facility] ULWDAJUGVE8589 [place], [place] [address]Ks# [phone] PROG IMSon 05-13-2018 Protein mass conc Normal [facility] Protein mass conc [facility] Patient Name: SANDY BHATTI [id number] [facility] [place] Date of : [address] [address] Unit Number: [id number] Number: [id number] Note-Hospitalist Patient Status: ADM INoAttending Doctor: Anderson Rubio MDService Date: 05/13/18 1136Chief ComplaintChief ComplaintChest painSubjectiveS: (2 ROS minimum)Patient sleeping comfortably. Currently no chest pain. No shortness of breath. ReportsNitropaste is helping. Discussed with nursing.Objective (ROS)Nursing VitalsVital Signs (Last)ResultDate TimePulse Ym0811/09 1014B/P110/6209/09 7734Ypmz95.909/09 5927Vyjun2019/09 1560Jdyr0854/09 1014O2 DeliveryROOM AIR09/07 1814On examinationHEENT pupils are equal and reactive to light and accommodation. No pallor. No icterusNeck is suppleCardiovascular system S1-S2 normal. Systolic murmur heardChest clear bilateralAbdomen soft . Nontender. Bowel sounds present.Extremities trace edema bilateral lower extremitiesPatient is alert awake oriented to time place personNo distressDiagnostic Data:Lab 24hr (CBC/BMP Carmela)05/13/18 1134:Whole Bld Glucose 263 H005/13/18 0743:Whole Bld Glucose 169 H005/13/18 0647:[Embedded Image Not Available]Anion Gap 8, Est GFR ( Amer) 11, Est GFR (Non-Af Amer) 9, BUN/Creatinine Ratio 8 L,Glucose 161 H, Total Calcium 9.1, Iron 90, TIBC 305, Iron Saturation 30, RBC 3.06 L, MCV91.5, MCHC 32.5, RDW 12.7, MPV 9.1 L, Immature Gran % (Auto) 0.2, Abs Immat Gran (auto)0.00, Seg Neutrophils % 55.5, Lymphocytes % 32.5, Monocytes % 7.9, Eosinophils % 2.7,Basophils % 1.2, Neutrophils # 2.90, Lymphocytes # 1.70, Monocytes # 0.40, Eosinophils #0.10, Basophils # 0.10, Nucleated RBCs 0.009 0600:Sodium Cancelled, Potassium Cancelled, Chloride Cancelled, Carbon Dioxide Cancelled, AnionGap Cancelled, BUN Cancelled, Creatinine Cancelled, BUN/Creatinine Ratio Cancelled,Glucose Cancelled, Total Calcium Cancelled, Iron Cancelled, TIBC Cancelled, IronSaturation Sqyirmnvw96/09/18 0527:Sodium Cancelled, Potassium Cancelled, Chloride Cancelled, Carbon Dioxide Cancelled, AnionGap Cancelled, BUN Cancelled, Creatinine Cancelled, BUN/Creatinine Ratio Cancelled,Glucose Cancelled, Total Calcium Cancelled, Iron Cancelled, TIBC Cancelled, IronSaturation Cancelled, WBC Cancelled, RBC Cancelled, Hgb Cancelled, Hct Cancelled, MCVCancelled, MCHC Cancelled, RDW Cancelled, Plt Count Cancelled, Seg Neutrophils % Jsvrntexy03/08/18 2151:Whole Bld Glucose 294 H005/12/18 1622:Whole Bld Glucose 8050605/12/18 1142:Whole Bld Glucose 191 HAssessment and PlanConclusion1. Chest painAssessment and planChest pain rule out [place]. Patient chest pain-free On Nitropatch. Underwent cardiac stresstest. Reported abnormal. Cardiology consult. Discussed with . Cardiaccatheterization on Monday. Patient on aspirin, statin, beta blockerInsulin-dependent diabetes mellitus continue home medications with sliding scale insulinand diabetic dietHypertension continue home medicationDepression, hyperlipidemia and hypothyroidism continue medicationChronic anemia stableDVT prophylaxis with heparin subcutaneousPlan discussed with the patientDisclaimerThis dictation was created using voice recognition software.Phonetic and/or minor grammatical errors may exist.eSign Date and TimeAnderson Rubio MD Verified/Reviewed by 05/13/18 1138 [facility] PR[facility].NEPHon 05-13-2018 Protein mass [facility] [place] Protein mass [facility] Patient Name: SANDY BHATTI [id number] [employer] [address] Date of : [address] [address] Unit Number: [id number] Number: [id number] Note-Nephrology Patient Status: ADM INoAttending Doctor: Anderson Rubio MDService Date: 05/13/18 1431Progress Note-Nephrology([facility])Subj ectiveSubjective:pt feels gooddid not sleep well last nightno more chest pain since patches placedObjectiveVital Signs:Vital Signs (Last)ResultDate TimePulse Dq8637/09 1403B/P128/5909/09 6148Ijwc49.609/09 5022Iafas8153/09 8555Mjfl0543/09 1403O2 DeliveryROOM AIR05/11 1814IandO 24 Hour Arbhtmn42/09 0000Intake Healg861Jssbtm Nvvvk7878Jcywxug-476Mdfxac , Dlef838Ficyir, Kxvgo617Ahsedh, Ekywz1Qdkagu, Qqlig622Abchjoh040 lbWeightExam:DSRm0Qb JVDChest equal in expansion. No adventicious sounds appreciated.S1S2 heard. No rub.Abd Non-distended. Bowel sounds heard.Bilateral lower extremities: No edema/cyanosisCentral access:Medications:Medicat ions CurrentSig/SchStart timeLastMedicationDoseRout eStop TimeStatusAdminAmlodipine Otvbwasq53 CFKZSO15/08 2557JJ93/(NORVASC TAB)VM3155Luopyrj930 CTKMOEGV78/08 8911TI11/09(ECOTRIN TAB.EC)DE0403Gzlxckrsenlm Ouqxzpj10 MGQHS09/07 5423SI97/08(LIPITOR TAB)ID1439Xrsfppo Acetate1,334 LYMGPJH03/07 0118WV73/09(PHOSLO TAB)XJ3752Imszuqjph HCl0.3 MGBID09/07 8534HC52/09(CATAPRES TAB)NW2842Ebfojus Alfa20,000 UNITONCALL PRN09/08 0900AC(Procrit/Epogen Vial)IVHeparin Sodium5,000 CDUJRLZ03/07 3350KL81/09(Porcine)AZ1663 (HEPARIN D.SYR)Hydrocodone Bitart/1 MPYCT4EMQV PRN09/ 2512LS71/07AcetaminophenPO 1901(NORCO 5-325 TAB)Insulin Human LisproSee IqjtHFYL16/ 8400DS20/09(humaLOG/novoLO G PEN)Insts (1)GI0360Dxltsstmxrjkd Sodium0.112 GKQBRNLP79/08 7042EI75/09(SYNTHROID TAB)AR2770Xovlivznrd Tartrate5 RZN9CKLP PRN09/08 9958WC71/08(LOPRESSOR AMP)AR6428Kxylmhsyiv Ckvbczow23 MGBID09/07 7429HP22/09(LOPRESSOR TAB)PV8792Xtkfhujrvzcui7 ZQGKO2A26/08 8461SO44/09(NITRO-BID T.OINT)NO1567Ijjqjvfwypfxy 0.4 AEY0ENWO PRN09/07 1400AC(NITROSTAT 0.4MGSLTAB.SL)Vitamin B Complex/1 YQWLJKI40/ 2387JD55/09Folic FybtYX9337(NEPHROCAPS/NEPH ROVITE CAP)Dose Instructions:(1)Insulin Human Lispro (humaLOG/novoLOG PEN):1-5 UnitsLab Results:Lab 24hr (CBC/BMP Fishbone)05/13/18 1134:Whole Bld Glucose 263 H005/13/18 0743:Whole Bld Glucose 169 H005/13/18 0647:[Embedded Image Not Available]Anion Gap 8, Est GFR ( Amer) 11, Est GFR (Non-Af Amer) 9, BUN/Creatinine Ratio 8 L,Glucose 161 H, Total Calcium 9.1, Iron 90, TIBC 305, Iron Saturation 30, RBC 3.06 L, MCV91.5, MCHC 32.5, RDW 12.7, MPV 9.1 L, Immature Gran % (Auto) 0.2, Abs Immat Gran (auto)0.00, Seg Neutrophils % 55.5, Lymphocytes % 32.5, Monocytes % 7.9, Eosinophils % 2.7,Basophils % 1.2, Neutrophils # 2.90, Lymphocytes # 1.70, Monocytes # 0.40, Eosinophils #0.10, Basophils # 0.10, Nucleated RBCs 0.009 0600:Sodium Cancelled, Potassium Cancelled, Chloride Cancelled, Carbon Dioxide Cancelled, AnionGap Cancelled, BUN Cancelled, Creatinine Cancelled, BUN/Creatinine Ratio Cancelled,Glucose Cancelled, Total Calcium Cancelled, Iron Cancelled, TIBC Cancelled, IronSaturation Lzaiywbxv51/09/18 0527:Sodium Cancelled, Potassium Cancelled, Chloride Cancelled, Carbon Dioxide Cancelled, AnionGap Cancelled, BUN Cancelled, Creatinine Cancelled, BUN/Creatinine Ratio Cancelled,Glucose Cancelled, Total Calcium Cancelled, Iron Cancelled, TIBC Cancelled, IronSaturation Cancelled, WBC Cancelled, RBC Cancelled, Hgb Cancelled, Hct Cancelled, MCVCancelled, MCHC Cancelled, RDW Cancelled, Plt Count Cancelled, Seg Neutrophils % Bejotzoce03/08/18 2151:Whole Bld Glucose 294 H005/12/18 1622:Whole Bld Glucose 118Assessment/PlanAssessme nt/Problem List:1. Chest painfor heart cath tomorrowdialysis after that2. ESRD (end stage renal disease)dialysis after heart cath tomorrow3. Anemiaepo w dialysis4. Hypertensionwell controlledDisclaimerThis dictation was created using voice recognition software.Phonetic and/or minor grammatical errors may exist.eSign Date and TimeArthur Ibrahim MD Verified/Reviewed by 05/13/18 [facility] [place] CBC W/DIFFon 05-12-2018 BASO ABS 0.10 K/CU MM Normal 0-0.2 [facility] [place] Comment on above: Order Comment: Campu s: M Performed By: #### L 200.06927 ####[facility] BSNDZJBICY4955 [place], [place] [address]Cj# [phone] Basophils/100 WBC Auto (Bld) 0.9 % Normal 0-2 [facility] [place] Comment on above: Order Comment: Campu s: M Performed By: #### L 200.45515 ####[place] [address]Ph# [phone] EOS ABS 0.10 K/CU MM Normal 0-0.5 [facility] [place] Comment on above: Order Comment: Campu s: M Performed By: #### L 200.14409 ####[place] [address]Ph# [phone] Eosinophils/100 WBC Auto (Bld) 2.5 % Normal 0-5 [facility] [place] Comment on above: Order Comment: Campu s: M Performed By: #### L 200.22659 ####[place] [address]Ph# [phone] Erythrocyte distribution width Auto Ratio (RBC) 12.6 % Normal 11-14.5 [facility] Comment [facility] above: Order Comment: Campu s: M Performed By: #### L 200.54216 ####[facility] [id number] [place], [place] [address]Ph# [phone] Hematocrit Auto Volume Fraction (Bld) 26.2 % Low 35.0-47.0 [facility] Comment on above: Order Comment: Campu s: M Performed By: #### L 200.13245 ####[facility] QLWQJSUZTY[address] [place] [address]Lk# [phone] Hemoglobin mass conc (Bld) 8.3 g/dL Low 11.5-15.5 [facility] Comment on above: Order Comment: Campu s: M Performed By: #### L 200.46705 ####[facility] GTLZNHLWBI6700 [place] [address]Ph# [phone] IMMATR GRAN ABS 0.00 K/CU MM Normal Less than 2 [facility] [place] Comment on above: Order Comment: Campu s: M Performed By: #### L 200.58531 ####[facility] PBWRKMKULY[address] [place], [place] [address]Ph# [phone] IMMATURE GRAN % 0.2 % Normal Less than 2 [facility] [place] Comment on above: Order Comment: Campu s: M Performed By: #### L 200.62383 ####[facility] GHPQOMXZFO827[address] [place], [place] [address]Ph# [phone] Lymphocytes Auto #/vol (Bld) 2.10 K/CU MM Normal 0.9-4.4 [facility] [place] Comment on above: Order Comment: Campu s: M Performed By: #### L 200.57550 ####[facility] LMUIDANCWG827[address] [place], [place] [address]Ph# [phone] Lymphocytes/100 WBC Auto (Bld) 39.4 % Normal 20-40 [facility] [place] Comment on above: Order Comment: Campu s: M Performed By: #### L 200.64191 ####[facility] FBXAYEOBTK364[address] [place], [place] [address]Ph# [phone] MCHC Auto mass conc (RBC) 31.7 g/dL Low 32.0-36.0 [facility] [place] Comment on above: Order Comment: Campu s: M Performed By: #### L 200.51784 ####[facility] BYDOCZWAGG[address] [place], [place] [address]Ph# [phone] MCV Auto Entitic volume (RBC) 92.9 fL Normal 80.0-99.0 [facility] [place] Comment on above: Order Comment: Campu s: M Performed By: #### L 200.04392 ####[facility] KTVCCFNNKM[address] [place], [place] [address]Ph# [phone] MONO ABS 0.40 K/CU MM Normal 0.1-1.1 [facility] Comment on above: Order Comment: Campu s: M Performed By: #### L 200.48102 ####[facility] IWYCKWAYDY8254 [place], [place] [address]Qi# [phone] Monocytes/100 WBC Auto (Bld) 6.8 % Normal 2-10 [facility] Comment on above: Order Comment: Campu s: M Performed By: #### L 200.86432 ####[facility] WGXAPQTZWI[address] [place], [place] [address]Ph# [phone] NEUTROPHIL ABS 2.70 K/CU MM Normal 2.0-8.3 [facility] Comment on above: Order Comment: Campu s: M Performed By: #### L 200.72514 ####[facility] IZEXRWLPRW[address] [place], [place] [address]Ph# [phone] Neutrophils/100 WBC Auto (Bld) 50.2 % Normal 45-75 [facility] Comment [facility] above: Order Comment: Campu s: M Performed By: #### L 200.91264 ####[facility] UOCNPDTPNP[address] [place], [place] [address]Ph# [phone] Nucleated RBC/100 WBC Ratio (Bld) 0.0 % Normal Less than 1 [facility] Comment on above: Order Comment: Campu s: M Performed By: #### L 200.19578 ####[facility] EWKSTBFFFE5[address] [place], [place] [address]Ph# [phone] Platelet mean volume Auto Entitic volume (Bld) 9.3 fL Low 9.4-12.4 [facility] Comment on above: Order Comment: Campu s: M Performed By: #### L 200.79550 ####[facility] CKEONVYXMK[address] [place] [address]Km# [phone] Platelets Auto #/vol (Bld) 193 K/CU MM Normal 150-450 [facility] Comment on above: Order Comment: Campu s: M Performed By: #### L 200.25967 ####[facility] MBHNERLOZA6544 [place], [place] [address]Xw# [phone] RBC Auto #/vol (Bld) 2.82 M/CU MM Low 3.90-5.30 [facility] [place] Comment on above: Order Comment: Campu s: M Performed By: #### L 200.13616 ####[facility] VFSQPARYVO2770 [place], [place] [address]Yc# [phone] WBC Auto #/vol (Bld) 5.3 K/CU MM Normal 4.5-11.0 [facility] [place] Comment on above: Order Comment: Campu s: M Performed By: #### L 200.08769 ####[facility] OOCHECCXBQ9885 [place], [place] [address]Xp# [phone] CKMB PROFILEon 05-12-2018 CK enzyme act/vol 251 U/L High 26-192 [facility] Comment on above: Order Comment: Campu s: M Result Comment: Mode rate Hemolysis, Result may be falsely increased. Performed By: #### L 500.68105, L550.19181 ####[facility] [address]DFNHKZP[address] [place] [address]Yt# [phone] CK.MB mass conc 3.0 ng/mL Normal 0.5-3.6 [facility] Comment on above: Order Comment: Campu s: M Performed By: #### L 500.88734, L550.67731 ####[facility] MVZOTAMMRZ4860 [place], [place] [address]Ep# [phone] RI 1.2 Normal 0-2.5 [facility] Comment on above: Order Comment: Campu s: M Performed By: #### L 500.07611, L550.77108 ####[facility] ADEUAMPAAL3027 [place], [place] [address]Wm# [phone] RI TNP Normal 0-2.5 [facility] Comment on above: Order Comment: Campu s: M Performed By: #### L 500.18993, L550.42098 ####[facility] VXLALADGCV4137 [place], [place] [address]Qq# [phone] CK enzyme act/vol 49 U/L Normal 26-192 [facility] Comment on above: Order Comment: Campu s: M Performed By: #### L 500.70846, L550.80063 ####[facility] ZJOUDNFVEE7703 [place], [place] [address]Do# [phone] CK.MB mass conc 2.4 ng/mL Normal 0.5-3.6 [facility] Comment on above: Order Comment: Campu s: M Performed By: #### L 500.76971, L550.21352 ####[facility] GPCVSBPVWJ4340 [place], [place] [address]Ae# [phone] CONS.Cristofer 05-12-2018 CONS.CARD [facility] Patient Name: SANDY BHATTI [id number] [facility] Date of : [address] [address] Unit Number: [id number] Number: [id number] ardiology Patient Status: ADM INoAttending Doctor: Anderson Rubio MDService Date: 05/12/18 1325History of Present IllnessReferring PhysicianAnderson Rubio MDConsulted ProviderJc Lewis MDSource of Information Patient (medical record)Reason for ConsultAbnormal stressLiving Situation Home - IndependentHistory of Present IllnessPatient is a 53-year-old female end-stage renal disease on hemodialysis, nephroticsyndrome, diabetes mellitus was transferred from [facility] where she wasevaluated for chest pain. Patient states it started while sitting in her cahir.Chest pain was on and off throughout the morning. She describes pressure sitting on herchest sometimes at a 10 out of 10. She had associated nausea, diaphoresis and shortnessof breath. She denies any radiation of the pain. No lightheadedness, dizziness orsyncope. Troponins negative. Patient was transferred to [facility] for furthercardiac evaluation. Currently patient denies any chest pain. ER physician from [facility] mentioned that chest pain responded to nitroglycerin. Patient [facility] many years ago with the no occlusive coronary artery disease atthat time.While in the hospital, patient had stress testing done that was abnormal and cardiologywas consulted.Past Medical/Surgical HxPast Medical History SummaryInsulin-dependent diabetes with nephropathy retinopathy and neuropathy, coronary arterydisease, hypertension, depression, hyperlipidemia and hypothyroidismPast Surgical History SummaryAV fistula placement, hemodialysis catheter placementFamily/Social HistoryFamily HistoryFATHER, .FH: colon cancerMOTHER, .FH: lung cancerSISTERFH: diabetes mellitusBROTHERFH: diabetes mellitusFH: kidney failureSocial HxPatient with lives with her . She is a reformed smoker stopping 3 years ago.Denies any alcohol or illicit drug useAdvance DirectivesAdvance Directives Full CodeAllergies/Home MedicationsAllergiesCoded Allergies:CODEINE (05/11/18)LATEX (05/11/18)PENICILLINS (05/11/18)Uncoded Allergies:*CODEINE (Mild, NAUESEA and VOMITING 03/19/18)*LATEX (Mild, BREAKS OUT 03/19/18)*PENICILLIN (Mild, SWELLS UP 03/19/18)Home MedicationsamLODIPine BESYLATE* (Norvasc 5MG Tab*) 5 MG TABLET 10 MG PO QDAY, Ref 0 (Reported)Entered as Reported by BHANU COLUNGA on 09/29/171613Last Action: Continued on 05/11/181551 by Ramón RUBIO* (Aspir 81 MG Tab*) 81 MG TABLET. 81 MG PO QDAYWM, Ref 0 (Reported)TO CONTINUE FOR PROCEDURE PER 'S INSTRUCTIONSEntered as Reported by BHANU COLUNGA on 09/29/171611Last Action: Held on 05/11/181552 by Kam RUBIO Calcium* (Lipitor 40MG Tab*) 40 MG TABLET 40 MG PO QHS, Ref 0 (Reported)Entered as Reported by BHANU COLUNGA on 09/29/171611Last Action: Continued on 05/11/181551 by ANDERSON RUBIOCalcium Acetate* (Phoslo cap*) 667 MG CAPSULE 1,334 MG PO TIDWM, Ref 0 (Reported)Entered as Reported by KARTHIKEYAN ANDERS on 03/19/181403Last Action: Continued on 05/11/181551 by YAMILETH RUBIOHAcloNIDine HCL* (Catapres 0.2MG Tab*) 0.2 MG TABLET 0.3 MG PO BID, Ref 0 (Reported)Entered as Reported by BHANU COLUNGA on 09/29/17 161Last Action: Continued on 05/11/181551 by YAMILETH RUBIOHAFolic Acid/Vitamin B Comp W-C* (Nephrocaps Softgel*) 1 MG CAPSULE 1 CAP PO QDAY, Ref 0(Reported)Entered as Reported by KARTHIKEYAN ANDERS on 03/19/181403Last Action: Continued on 05/11/181551 by YAMILETH RUBIOHAInsulin Aspart (Novolog) 100 UNIT/1 ML VIAL 8 UNITS TIDAC, Ref 0 (Reported)Entered as Reported by BHANU COLUNGA on 09/29/171612Last Action: Held on 05/11/181552 by YAMILETH RUBIOHAInsulin Degludec (Tresiba Flextouch U-100) 100 UNIT/1 ML INSULN.PEN 40 UNIT SQ QHS, Ref0 (Reported)Entered as Reported by KARTHIKEYAN ANDERS on 03/19/18 1405Last Action: Held on 05/11/181552 by MARIEL RUBIOevothyroxi ne Sodium* (Synthroid 0.112MG Tab*) 112 MCG TABLET 0.112 MG PO QDAYAC, Ref 0(Reported)Entered as Reported by BHANU COLUNGA on 09/29/17 1611Last Action: Continued on 05/11/181551 by YAMILETH RUBIOHAmetoprolol TARTRATE* (Lopressor 50MG Tab*) 50 MG TABLET 50 MG PO BID, Ref 0 (Reported)Entered as Reported by BHANU COLUNGA on 09/29/17 1610Last Action: Continued on 05/11/181551 by DIMA RUBIOnpatient MedicationsMedications CurrentSig/SchStart timeLastMedicationDoseRout eStop TimeStatusAdminAmlodipine Dlfxvyam38 FACMSO11/08 0900AC(NORVASC TAB)KUNgbeidy679 YHDZMTMJ64/08 0800AC(ECOTRIN TAB.EC)POAtorvastatin Qcitrej03 MGQHS09/07 9731EO85/07(LIPITOR TAB)LO3507Lljqrxn Acetate1,334 VNRDFGS75/07 0895EF90/07(PHOSLO TAB)VZ1700Kknmzhgyz HCl0.3 MGBID09/07 5015AI68/07(CATAPRES TAB)WU4163Wpelkho Alfa20,000 UNITONCALL PRN09/08 0900AC(Procrit/Epogen Vial)IVHeparin Sodium5,000 ZEQBWGJ60/07 5871WA91/07(Porcine)VI8988 (HEPARIN D.SYR)Hydrocodone Bitart/1 CRKQI1NXZZ PRN09/07 6855DB71/07AcetaminophenPO 1901(NORCO 5-325 TAB)Insulin Human LisproSee AvfsJKKU02/07 8597YO21/07(humaLOG/novoLO G PEN)Insts (1)OH2344Wbewyiiwxiphq Sodium0.112 DFIIFEHV16/08 4431NM04/08(SYNTHROID TAB)PA5938Ycjoksxhok Wzjpxcus58 MGBID09/07 7685AO29/07(LOPRESSOR TAB)HA1504Ciibvviryxpdh5.5 HGBOX6U26/07 4534ZA09/08(NITRO-BID T.OINT)CI5460Zelzaoquxaiqu 0.4 ADV2OPWQ PRN09/07 1400AC(NITROSTAT 0.4MGSLTAB.SL)Vitamin B Complex/1 LJLSAYB40/08 0900ACFolic AcidPO(NEPHROCAPS/NEPHROVI TE CAP)Dose Instructions:(1)Insulin Human Lispro (humaLOG/novoLOG PEN):1-5 UnitsReview of SystemsROS: OtherBeyond what was mentioned in HPI, 10 systems were reviewed and negativePhysical ExamVital SignsVital Signs (Last)ResultDate TimePulse Ht6627/08 0640B/P156/6409/08 7313Tkgn29.409/08 1829Ifmkw1747/08 6522Ppfk5441/08 0640O2 DeliveryROOM AIR05/11 1814Vital Signs (24hr)DateTempPulseRespB/P B/P MeanPulse HuJyH157/-05/898.2-98.4 84-9663-74807-157/59-6494- 99Physical Examination SummaryGeneral: Well-appearing, well-nourished and in no acute distress.Head: Atraumatic, normocephalic.Eyes: Sclera anicteric, conjunctiva light pink.ENT: Oropharynx without rendess or swelling. [place], moist mucous membranes.Neck: Supple without lymphadenopathy, thyromegaly or JVD. No carotid bruit.Lungs: Breath sounds CTA bilaterally and equal. Symmetric chest rise.Cardiovascular: RRR without murmurs, rub or gallop. +2 equal pulses upper and lowerextremities. Dialysis catheter right upper chestAbdomen: Soft, nontender, normoactive bowel sounds. No guarding, rebound or palpablemass.Extremities: Normal ROM. No edema. No clubbing or cyanosis.Neurologic: Cranial nerves II through XII grossly intact. Normal speech.Skin: Warm and dry with normal turgor. No rashes or lesions noted.Diagnostic Data:Laboratory Tests05/809/808/ [id number] dium (136 - 145 MMOL/L)142Potassium (3.5 - 5.1 MMOL/L)5.1Chloride (98 - 107 MMOL/L)104Carbon Dioxide (21 - 32 MMOL/L)27Anion Gap (5 - 16 MMOL/L)10BUN (7 - 26 MG/DL)56 HCreatinine (0.510 - 0.950 MG/DL)6.290 HEst GFR ( Amer) (ML/MIN)8Est GFR (Non-Af Amer) (ML/MIN)7BUN/Creatinine Ratio (15 - 24)9 LGlucose (70 - 100 MG/DL)145 HWhole Bld Glucose (85 - 125 MG/DL)191 HTotal Calcium (8.5 - 10.1 MG/DL)8.4 LPhosphorus (2.5 - 4.9 MG/DL)8.5 HIron (50 - 170 UG/DL)76TIBC (221 - 481 UG/DL)294Iron Saturation (22 - 44 %)26Creatine Kinase (26 - 192 U/L)251 A62AJ-ZF (CK-2) (0.5 - 3.6 NG/ML)3.02.4CK-MB (CK-2) Rel Index (0 - 2.5)1.2TNPTroponin I (0.000 - 0.045 NG/ML)0.047 H0.066 HAlbumin (3.2 - 5.0 GM/DL)2.6 LHematologyWBC (4.5 - 11.0 K/CU MM)5.3RBC (3.90 - 5.30 M/CU MM)2.82 LHgb (11.5 - 15.5 G/DL)8.3 LHct (35.0 - 47.0 %)26.2 LMCV (80.0 - 99.0 fl)92.9MCHC (32.0 - 36.0 GM/DL)31.7 LRDW (11 - 14.5)12.6Plt Count (150 - 450 K/CU MM)193MPV (9.4 - 12.4)9.3 LImmature Gran % (Auto) (Less than 2 %)0.2Abs Immat Gran (auto) (Less than 2 K/CU MM)0.00Seg Neutrophils % (45 - 75 %)50.2Lymphocytes % (20 - 40 %)39.4Monocytes % (2 - 10 %)6.8Eosinophils % (0 - 5 %)2.5Basophils % (0 - 2 %)0.9Neutrophils # (2.0 - 8.3 K/CU MM)2.70Lymphocytes # (0.9 - 4.4 K/CU MM)2.10Monocytes # (0.1 - 1.1 K/CU MM)0.40Eosinophils # (0 - 0.5 K/CU MM)0.10Basophils # (0 - 0.2 K/CU MM)0.10Nucleated RBCs (Less than 1 %)0.009/0709/0709/708/0705/116189033872212259763465Kt emistryWhole Bld Glucose (85 - 125 MG/DL)307 H216 J06587 LCreatine Kinase (26 - 192 U/L)59CK-MB (CK-2) (0.5 - 3.6 NG/ML)2.2CK-MB (CK-2) Rel Index (0 - 2.5)TNPTroponin I (0.000 - 0.045 NG/ML)0.051 HEK05/12/18 sinus tachycardia, LAD, LVH with repolarization abnormality. Rate 102, MD 170,QTc 487. T wave inv I, aVLConclusion / PlanConclusion/Plan1. Chest painPatient is a 53-year-old female end-stage renal disease on hemodialysis, nephroticsyndrome, diabetes mellitus was transferred from [facility] where she wasevaluated for chest pain. Patient states it started yesterday and was on and offthroughout the morning. She describes the feeling as a chair sitting on her chestsometimes at a 10 out of 10. She had associated nausea and shortness of breath. Shedenies any radiation of the pain. No lightheadedness, dizziness or syncope. Troponinsnegative. Patient was transferred to [facility] for further cardiac evaluation.Currently patient still has 1/10 intermittent CP lasting 10-15 minutes at a time.Will increase NTG paste to 1 and give IV lopressor PRN systolic BP > 140. Patient haspoor IV access but does and a line in the left hand.ECG this AM is unchanged. Serial cardiac enzymes pending.Stress test was abnormal and patient will be scheduled for left heart cath with possiblePTCA on Monday. If symptoms worsening, patient may need to go sooner.Continue aspirin, statin, PO beta-chris, DVT prophylaxis.2. Abnormal stress testScheduled for left heart catheterization with possible PTCA on Monday3. ESRD (end stage renal disease)Managed by nephrology. Input regarding IV fluids will be helpful. Patient will obviouslybe getting contrast on Monday with left heart catheterization.4. HypertensionWill add PRN IV lopressor and increase NTG paste to 1Stable ProblemsProblems not specifically addressed in the above plan are stable and do not warrantadjustment of the current method of therapy.SHANNA- Pt seen and examimed. Has 2 zones of ischemia today on stress test. Having CP onHD. Will get an ECG and likely stop HD. She can have HD after cath Monday. Has a historyof stents in the past. CP 12/12 now.Seen and examined withJc Lewis MDDisclaimerThis dictation was created using voice recognition software.Phonetic and/or minor grammatical errors may exist.eSign Date and TimeJc Lewis MD Verified/Reviewed by 05/12/18 Ge Keane PAC [facility] Consultation-Cardiolo gy Normal [facility] GFR ESTon 05-12-2018 IF AMER 8 ML/MIN Normal [facility] Comment on above: Order Comment: Nenita s: M Performed By: #### L 500.81399, L500.40941, L500.86275 ####[facility] [id number] [place], [place] [address]As# [phone] IF non-AFR AMER 7 ML/MIN [facility] Comment on above: Order Comment: Nenita s: M Performed By: #### L 500.58577, L500.61421, L500.28259 ####[facility] [id number] [place], [place] [address]Zn# [phone] GLUCOSE METERon 05-12-2018 Glucose mass conc 118 mg/dL Normal 85-125 [facility] Glucose mass conc 191 mg/dL High 85-125 [facility] IRON PANELon 05-12-2018 Iron mass conc 76 ug/dL Normal 50-170 [facility] Comment on above: Order Comment: Nenita s: M Result Comment: Bea ents treated with metal-binding drugs (e.g.deferoxamine)may have depressed iron values, as chelated iron may notproperly react in the Siemens iron assay. Performed By: #### L 500.75940, L500.26235, L500.39753 ####[facility] [id number] [place], [place] [address]Aq# [phone] IRON SAT 26 % Normal 22-44 [facility] Comment on above: Order Comment: Campu s: M Performed By: #### L 500.41836, L500.84701, L500.97497 ####[facility] [id number] [place], [place] [address]Rh# [phone] TIBC 294 UG/DL Normal 221-481 [facility] Comment on above: Order Comment: Campu s: M Performed By: #### L 500.86857, L500.62423, L500.84528 ####[facility] RIGIBAIJXD[address] [place], [place] [address]Ud# [phone] PROG IMSon 05-12-2018 Protein mass conc Normal [facility] [place] Protein mass conc [facility] Patient Name: SANDY BHATTI [id number] [facility] [address] Date of : [address], [place] [address] Unit Number: [id number] Number: [id number] Note-Hospitalist Patient Status: ADM INoAttending Doctor: Anderson Rubio MDService Date: 05/12/18 1319Chief ComplaintChief ComplaintChest painSubjectiveS: (2 ROS minimum)Patient has some chest pain but comfortable now. No shortness of breath. Patient hadstress test and then went to hemodialysis.Objective (ROS)Nursing VitalsVital Signs (Last)ResultDate TimePulse Ci0295/08 0640B/P156/6409/08 5801Jzzu08.409/08 7040Xrwtd0561/08 9737Bzfu4603/08 0640O2 DeliveryROOM AIR09/07 1814On examinationHEENT pupils are equal and reactive to light and accommodation. No pallor. No icterusNeck is suppleCardiovascular system S1-S2 normal. Systolic murmur heardChest clear bilateralAbdomen soft . Nontender. Bowel sounds present.Extremities trace edema bilateral lower extremitiesPatient is alert awake oriented to time place personNo distressDiagnostic Data:Lab 24hr (CBC/BMP [place])05/12/18 1142:Whole Bld Glucose 191 H005/12/18 0415:Creatine Kinase 251 H, CK-MB (CK-2) 3.0, CK-MB (CK-2) Rel Index 1.2, Troponin I 0.047 05/12/18 0415:[Embedded Image Not Available]Anion Gap 10, Est GFR ( Amer) 8, Est GFR (Non-Af Amer) 7, BUN/Creatinine Ratio 9 L,Glucose 145 H, Total Calcium 8.4 L, Phosphorus 8.5 H, Iron 76, TIBC 294, Iron Geqvdutsvb12, Albumin 2.6 L, RBC 2.82 L, MCV 92.9, MCHC 31.7 L, RDW 12.6, MPV 9.3 L, Immature Gran %(Auto) 0.2, Abs Immat Gran (auto) 0.00, Seg Neutrophils % 50.2, Lymphocytes % 39.4,Monocytes % 6.8, Eosinophils % 2.5, Basophils % 0.9, Neutrophils # 2.70, Lymphocytes #2.10, Monocytes # 0.40, Eosinophils # 0.10, Basophils # 0.10, Nucleated RBCs 0.009 2314:Creatine Kinase 49, CK-MB (CK-2) 2.4, CK-MB (CK-2) Rel Index TNP, Troponin I 0.066 05/11/18 2106:Whole Bld Glucose 307 05/11/18 1803:Whole Bld Glucose 216 H005/11/18 1647:Creatine Kinase 59, CK-MB (CK-2) 2.2, CK-MB (CK-2) Rel Index TNP, Troponin I 0.051 05/11/18 1423:Whole Bld Glucose 5607005/11/18 1328:Whole Bld Glucose 56 LAssessment and PlanConclusion1. Chest painAssessment and planChest pain rule out AK. Patient has on and off chest pain. On Nitropatch. Underwentcardiac stress test. Reported abnormal. Cardiology consult. Discussed with .Cardiac catheterization on Monday.Insulin-dependent diabetes mellitus continue home medications with sliding scale insulinand diabetic dietHypertension continue home medicationDepression, hyperlipidemia and hypothyroidism continue medicationChronic anemia stableDVT prophylaxis with heparin subcutaneousPlan discussed with the patientDisclaimerThis dictation was created using voice recognition software.Phonetic and/or minor grammatical errors may exist.eSign Date and TimeAnderson Rubio MD Verified/Reviewed by 05/12/18 1320 Normal [facility] [place] PROG.NEPHon 05-12-2018 Protein mass conc [facility] Patient Name: SANDY BHATTI [id number] Date of : [address] [address] Unit Number: [id number] Number: [id number] Note-Nephrology Patient Status: ADM INoAttending Doctor: Anderson Rubio MDService Date: 05/12/18 1357Progress Note-Nephrology([facility])Subj ectiveSubjective:ctspt - developed cp on dialysis w sob - not as severe as yesterdayno n/v/palpnObjectiveVital Signs:Vital Signs (Last)ResultDate TimePulse Ce0178/08 0640B/P156/6409/08 3204Fwnr10.409/08 5111Tyhtz3435/08 8541Gycu0766/08 0640O2 DeliveryROOM AIR05/11 1814IandO 24 Hour Wwimxsu47/08 0000Intake Ufkih009Gkmskl Jfupm834Rdhhxqs-74Qnymyn, Ijjr952Rbpovz5XgvjtfcfjcBk idsOutput, Qdysr7Enizfb, Mwems258Fwugiep855 lbWeightExam:AVWq5Rh JVDChest equal in expansion. No adventicious sounds appreciated.S1S2 heard. No rub.sl tachycardia 110 nowAbd Non-distended. Bowel sounds heard.Bilateral lower extremities: No edema/cyanosisDialysis access:Central Access:Medications:Medicat ions CurrentSig/SchStart timeLastMedicationDoseRout eStop TimeStatusAdminAmlodipine Joilclpe37 NZQIWX64/ 0900AC(NORVASC TAB)JOQuzjndl345 EZRSZTNH77/08 0800AC(ECOTRIN TAB.EC)POAtorvastatin Boxnqft59 MGQHS09/07 7388ZF78/07(LIPITOR TAB)YB7231Hhhaklk Acetate1,334 DMMOELL14/07 8556IX28/07(PHOSLO TAB)ZV3101Epffxspsc HCl0.3 MGBID09/07 4112WX19/07(CATAPRES TAB)DK3086Zumzpxc Alfa20,000 UNITONCALL PRN05/12 0900AC(Procrit/Epogen Vial)IVHeparin Sodium5,000 OMPVISU12 5874ML77/07(Porcine)VY0475 (HEPARIN D.SYR)Hydrocodone Bitart/1 YVMYY3HRRL PRN09 0489SM8107AcetaminophenPO 1901(NORCO 5-325 TAB)Insulin Human LisproSee RkqvASSJ32 5121XH0907(humaLOG/novoLO G PEN)Insts (1)RN6909Amkzlpovidseb Sodium0.112 KCJSQOLE82/08 2760GR98(SYNTHROID TAB)KM3671Wlpwdbkeso Inzwhkqi52 MGBID05/11 1974BV19/07(LOPRESSOR TAB)BC5027Sefltbzpmaaht6.5 MUWMX3C28/07 6664IK74(NITRO-BID T.OINT)BJ0058Qrnetgyimrdfo 0.4 ZOY6GXKT PRN09 1400AC(NITROSTAT 0.4MGSLTAB.SL)Vitamin B Complex/1 MALXWOM99/08 0900ACFolic AcidPO(NEPHROCAPS/NEPHROVI TE CAP)Dose Instructions:(1)Insulin Human Lispro (humaLOG/novoLOG PEN):1-5 UnitsLab Results:Lab 24hr (CBC/BMP [facility])05/12/18 1142:Whole Bld Glucose 191 H005/12/18 0415:Creatine Kinase 251 H, CK-MB (CK-2) 3.0, CK-MB (CK-2) Rel Index 1.2, Troponin I 0.047 H005/12/18 0415:[Embedded Image Not Available]Anion Gap 10, Est GFR ( Amer) 8, Est GFR (Non-Af Amer) 7, BUN/Creatinine Ratio 9 L,Glucose 145 H, Total Calcium 8.4 L, Phosphorus 8.5 H, Iron 76, TIBC 294, Iron Liysttrzcr01, Albumin 2.6 L, RBC 2.82 L, MCV 92.9, MCHC 31.7 L, RDW 12.6, MPV 9.3 L, Immature Gran %(Auto) 0.2, Abs Immat Gran (auto) 0.00, Seg Neutrophils % 50.2, Lymphocytes % 39.4,Monocytes % 6.8, Eosinophils % 2.5, Basophils % 0.9, Neutrophils # 2.70, Lymphocytes #2.10, Monocytes # 0.40, Eosinophils # 0.10, Basophils # 0.10, Nucleated RBCs 0.009 2314:Creatine Kinase 49, CK-MB (CK-2) 2.4, CK-MB (CK-2) Rel Index TNP, Troponin I 0.066 05/11/18 2106:Whole Bld Glucose 307 05/11/18 1803:Whole Bld Glucose 216 05/11/18 1647:Creatine Kinase 59, CK-MB (CK-2) 2.2, CK-MB (CK-2) Rel Index TNP, Troponin I 0.051 05/11/18 1423:Whole Bld Glucose 109Assessment/PlanAssessme nt/Problem List:1. Chest painstoppoing dialysis and getting ekgcardiologist here and considering taking her to [facility] either today or Monday - if painnot resolve or sig ekg changes, [facility] today.2. ESRD (end stage renal disease)3. Anemia4. HypertensionDisclaimerThis dictation was created using voice recognition software.Phonetic and/or minor grammatical errors may exist.eSign Date and TimeArthur Ibrahim MD Verified/Reviewed by 05/12/18 1359 [facility] Protein mass conc [facility] Protein mass [facility] Patient Name: SANDY BHATTI [id number] [employer] [address] Date of : [address] [address] Unit Number: [id number] Number: [id number] Note-Nephrology Patient Status: ADM INoAttending Doctor: Anderson Rubio MDService Date: 05/12/18 1152Progress Note-Nephrology([facility])Subj ectiveSubjective:pt seen after sthad some cpcomfortable nowno sobObjectiveVital Signs:Vital Signs (Last)ResultDate TimePulse Io2681/08 0640B/P156/6409/08 0078Gruo10.409/08 4076Ytuou1285/08 4910Vksz9465/08 0640O2 DeliveryROOM AIR05/11 1814IandO 24 Hour Eeeacky60/08 0000Intake Abuwc121Tvbvpy Jorpz853Vjzsekr-24Jonbtg, Pmdd977Pxwvlp5QvhrtddgniCz idsOutput, Wnexz8Acffoc, Bqtyp366Ulyqgqm692 lbWeightExam:FJOn0Us JVDChest equal in expansion. No adventicious sounds appreciated.S1S2 heard. No rub.Abd Non-distended. Bowel sounds heard.Bilateral lower extremities: No edema/cyanosisDialysis [facility] lineCentral Access:Medications:Medicat ions CurrentSig/SchStart timeLastMedicationDoseRout eStop TimeStatusAdminAmlodipine Pzbqtgvu78 MJRDWP26/08 0900AC(NORVASC TAB)CQSimywab864 VBUFHHWL52/08 0800AC(ECOTRIN TAB.EC)POAtorvastatin Hqewdwp89 MGQHS09/07 1808GF16/07(LIPITOR TAB)SP7114Blvjesa Acetate1,334 EMZETMY61/07 8376LH24/07(PHOSLO TAB)FA2485Eaksjwpix HCl0.3 MGBID09/07 6595RC34/07(CATAPRES TAB)SL1410Dufanuw Alfa20,000 UNITONCALL PRN09/08 0900AC(Procrit/Epogen Vial)IVHeparin Sodium5,000 OQRHGFO17/07 7448GT76/07(Porcine)PD5273 (HEPARIN D.SYR)Hydrocodone Bitart/1 AENOB0LMRQ PRN09/07 0244DQ23/07AcetaminophenPO 1901(NORCO 5-325 TAB)Insulin Human LisproSee GzaoNESF59/07 1271KA68/07(humaLOG/novoLO G PEN)Insts (1)FK9818Uqwmdaxqndpjr Sodium0.112 YPOGUHIF45/08 6561RF00/08(SYNTHROID TAB)JW5794Equdcblazq Rkdcibyc85 MGBID09/07 6359NC79/07(LOPRESSOR TAB)PR7050Spfzptpjghuvv9.5 ODTUE2U55 6896KE75/08(NITRO-BID T.OINT)TD7949Kajufftnmooji 0.4 VHH8OWIL PRN09 1400AC(NITROSTAT 0.4MGSLTAB.SL)Vitamin B Complex/1 LUQAFGU96/08 0900ACFolic AcidPO(NEPHROCAPS/NEPHROVI TE CAP)Dose Instructions:(1)Insulin Human Lispro (humaLOG/novoLOG PEN):1-5 UnitsLab Results:Lab 24hr (CBC/BMP Fishbone)05/12/18 1142:Whole Bld Glucose 191 05/12/18 0415:Creatine Kinase 251 H, CK-MB (CK-2) 3.0, CK-MB (CK-2) Rel Index 1.2, Troponin I 0.047 05/12/18 0415:[Embedded Image Not Available]Anion Gap 10, Est GFR ( Amer) 8, Est GFR (Non-Af Amer) 7, BUN/Creatinine Ratio 9 L,Glucose 145 H, Total Calcium 8.4 L, Phosphorus 8.5 H, Iron 76, TIBC 294, Iron Dzxfithqrw28, Albumin 2.6 L, RBC 2.82 L, MCV 92.9, MCHC 31.7 L, RDW 12.6, MPV 9.3 L, Immature Gran %(Auto) 0.2, Abs Immat Gran (auto) 0.00, Seg Neutrophils % 50.2, Lymphocytes % 39.4,Monocytes % 6.8, Eosinophils % 2.5, Basophils % 0.9, Neutrophils # 2.70, Lymphocytes #2.10, Monocytes # 0.40, Eosinophils # 0.10, Basophils # 0.10, Nucleated RBCs 0.009 2314:Creatine Kinase 49, CK-MB (CK-2) 2.4, CK-MB (CK-2) Rel Index TNP, Troponin I 0.066 05/11/18 2106:Whole Bld Glucose 307 05/11/18 1803:Whole Bld Glucose 216 05/11/18 1647:Creatine Kinase 59, CK-MB (CK-2) 2.2, CK-MB (CK-2) Rel Index TNP, Troponin I 0.051 05/11/18 1423:Whole Bld Glucose 53233/03/21 1328:Whole Bld Glucose 56 LAssessment/PlanAssessment /Problem List:1. Chest painst todaywu in progress2. ESRD (end stage renal disease)on dialysis currently3. Anemiaepo w dialysischeck iron stores4. Hypertensionmodestly well controlledcontinue w current regimen.DisclaimerThis dictation was created using voice recognition software.Phonetic and/or minor grammatical errors may exist.eSign Date and TimeArthur Ibrahim MD Verified/Reviewed by 05/12/18 1155 [facility] 05-12-2018 Albumin mass conc 2.6 g/dL Low 3.2-5.0 [facility] Comment on above: Order Comment: Campu s: M Performed By: #### L 500.00800, L500.17087, L500.09745 ####[facility] [id number] [place], [place] [address]Bc# [phone] Anion gap 3 molar conc 10 mmol/L Normal 5-16 [facility] Comment on above: Order Comment: Campu s: M Performed By: #### L 500.61835, L500.13463, L500.47534 ####[facility] [id number] [place], [place] [address]Tc# [phone] Calcium mass conc 8.4 mg/dL Low 8.5-10.1 [facility] Comment on above: Order Comment: Campu s: M Performed By: #### L 500.64456, L500.03098, L500.80146 ####[facility] [id number] [place], [place] [address]Yx# [phone] Chloride molar conc 104 mmol/L Normal 98-107 [facility] Comment on above: Order Comment: Campu s: M Performed By: #### L 500.02494, L500.70061, L500.18104 ####[facility] NRQWJOQEGK[address] [place], [place] [address]Tk# [phone] CO2 molar conc 27 mmol/L Normal 21-32 [facility] Comment on above: Order Comment: Campu s: M Performed By: #### L 500.83617, L500.34768, L500.78300 ####[facility] [id number] [place], [place] [address]Ab# [phone] Creatinine mass conc 6.290 mg/dL High 0.510-0.950 [facility] [place] Comment on above: Order Comment: Campu s: M Result Comment: Bea ents receiving either N-Acetylcysteine (NAC) orMetamizole prior to venipuncture, may have falsely depressedresults. Performed By: #### L 500.99044, L500.18112, L500.90980 ####[facility] [id number] [place], [place] [address]Fs# [phone] Glucose mass conc 145 mg/dL High 70-100 [facility] Comment on above: Order Comment: Campu s: M Result Comment: 70-1 00- Normal Fasting; 100-125 Impaired Fasting; greaterthan 126 on more than one result- Diabetes. ADA guidelines.Results may be falsely elevated after the administration ofSulfapyridine.Results may be falsely depressed after the administration ofSulfasalazine. Performed By: #### L 500.92723, L500.58915, L500.79387 ####[facility] [id number] [place], [place] [address]Il# [phone] Phosphate mass conc 8.5 mg/dL High 2.5-4.9 [facility] Comment on above: Order Comment: Campu s: M Performed By: #### L 500.29694, L500.38922, L500.89823 ####[facility] PPVNJXQWWT[address] [place], [place] [address]Up# [phone] Potassium molar conc 5.1 mmol/L Normal 3.5-5.1 [facility] Comment on above: Order Comment: Campu s: M Performed By: #### L 500.91748, L500.13591, L500.03027 ####[facility] MQEJZBAPRY[address] [place], [place] [address]Mc# [phone] Sodium molar conc 142 mmol/L Normal 136-145 [facility] Comment on above: Order Comment: Campu s: M Performed By: #### L 500.67637, L500.66353, L500.98425 ####[facility] [address]OVIZ[address] [place], [place] [address]Ef# [phone] Urea nitrogen mass conc 56 mg/dL High 7- [facility] Comment on above: Order Comment: Campu s: M Performed By: #### L 500.82450, L500.43620, L500.17727 ####[facility] EZPXXFNFSS[address] [place], [place] [address]Bs# [phone] Urea nitrogen/Creatinine mass ratio 9 mg/mg Low 15-24 [facility] Comment on above: Order Comment: Campu s: M Performed By: #### L 500.46221, L500.89256, L500.80936 ####[facility] [id number] [place], [place] [address]Cz# [phone] TROPONIN Ion 05-12-2018 Troponin I.cardiac mass conc 0.047 ng/mL High 0.000-0.045 [facility] Comment on above: Order Comment: Campu s: M Performed By: #### L 500.61934, L550.89487 ####[facility] [id number] [place], [place] [address]Ds# [phone] Troponin I.cardiac mass conc 0.066 ng/mL High 0.000-0.045 [facility] Comment on above: Order Comment: Campu s: M Performed By: #### L 500.88655, L550.32020 ####[facility] [id number] [place], [place] [address]Gx# [phone] CCon 05-11-2018 CC DATE OF SERVICE: 05/14/2018INDICATIONS: Unstable angina with positive stress test.PROCEDURE: Right femoral arteriotomy, right and left coronary cineangiogram, leftventriculogram, right femoral angiogram and a closure device insertion.The patient was brought to the catheterization lab in a fasting state. Both groinswere prepped and draped in a sterile fashion. A 6-Eritrean sheath was then placed inthe right femoral artery. After this, right and left coronary cineangiography wasthen performed followed by left ventriculography using 30 of nonionic contrastmaterial. The needle was pulled back into the aorta and pullback pressure was thendocumented.FINDINGS:1. Left main: No significant disease.2. LAD: There is mild diffuse disease in the distal LAD. There also isdisease in the diagonal branch which is mild and diffuse.3. Left circumflex: No significant disease in the circumflex until down to thedistal portion. After the takeoff of a large second OM, in the circumflex proper,there is a stenosis of roughly 60% at the ostium. This is a small artery.4. Ramus intermedius: This is a small artery. There is a high-grade lesionof only 70% at the ostium.5. RCA: Large dominant artery. No significant blockage is seen. There is amild 30% stenosis proximally.6. 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 Of note, in the ramus area and in the distalcircumflex these zones are small arteries and not easily amenable to stenting. Onecould consider angioplasty alone, but as a diabetic and dialysis patient, she islikely to have restenosis here. I would recommend medications first. She also hassubendocardial disease here and I think beta-blockers would be the best answer andalso nitrates. VALERIO Acuña/[id number]: 05/14/2018 08:49DT: 05/14/2018 11:24SSI File#: [id number] #: [id number] [facility] PATIENT NAME: SANDY BHATTI [id number] Lizeth White MEDICAL REC #: [id number], [place] [id number] DATE: 05/11/18DISCHARGE DATE: 05/15/18CARDIAC CATH ATTENDING PHY: Anderson Rubio MDVerified/Reviewed by05/17/18 1620 KLOGR [facility] PATIENT NAME: SANDY BHATTI [id number] Lizeth White MEDICAL REC #: [id number], [place] [id number] DATE: 05/11/18DISCHARGE DATE: 05/15/18CARDIAC CATH ATTENDING PHY: Anderson Rubio MD [facility] CCCASEon 05-11-2018 [facility] to [facility] w CARDIAC END OF CASE REPORT in a PDF formatTo view the Cardiac END OF CASE reportyou must go to Clinical Review (PWM/Physician Desktop) and- Select the patient- Select the Vist the report is on- Click the Globe on the bottom left and the PDF report will launch(PDF's can't be viewed in [employer] [place] directly)\\[email or web address] [facility] DEOLSTRESSon 05-11-2018 CARDIAC STRESS TEST REPORT [facility] INTERPRETING PHYSICI AN: Jc Lewis MDATTENDING PHYSICIAN: Anderson Rubio MDORDERING/REFERRING PHYSICIAN:DATE(S) OF SERVICE: 05/12/2018PROCEDURE: Lexiscan stress testPATIENT RELATED INFORMATION:Age: Height: ft in Weight: lbs. oz. Sex:Smokes: Cigars: #Cigs: Pipe: Inactive:Mod.Man.Labor: Heavy Work: Sedentary:Sedentary and Ex. Program: HR Since last meal:REASON FOR PERFORMING TEST:MEDICATIONS:INTERPRET ATION:EKG response to exercise:Blood pressure response:Rhythm:Conduction :ST segment:Heart rate response:Fitness classification:Resting ECG:Baseline EKG shows normal sinus rhythm with LVH and T-wave inversion in leads I andaVL. That did not change during stress. Baseline blood pressure was 164/65. Heartrate was 77. During stress, the patient's blood pressure dropped to 151/69. Heartrate was 96. During that time, he was having mild, temporary shortness of breathwith minimal pressure, but no EKG changes were noted.CONCLUSION:1. Negative stress test as well as electrocardiogram and clinical criteria.2. No response of blood pressure and heart rate to Lexiscan administration.3. Nuclear images are pending. VALERIO Acuña/[id number] NAME: SANDY BHATTI Lizeth White MEDICAL REC #: [id number], [place] [address] DATE: 05/11/18DISCHARGE DATE: 05/15/18ATTENDING PHY: Anderson Rubio MDCARDIAC STRESS TEST REPORTDD: 05/12/2018 16:51DT: 05/12/2018 18:39SSI File#: [id number] #: [id number]/Reviewed by05/17/077219 [facility] PATIENT NAME: SANDY BHATTI Lizeth White MEDICAL REC #: [id number], [place] [address] DATE: 05/11/18DISCHARGE DATE: 05/15/18ATTENDING PHY: Anderson Rubio [facility] IDABELARDIAC STRESS TEST REPORT Normal [facility] CDLSTRESS INTERPRETING PHYSICI AN: Jc Lewis MDATTSARAH PHYSICIAN: Anderson Rubio MDORDERING/REFERRING PHYSICIAN:DATE(S) OF SERVICE: 05/12/2018PROCEDURE: Nuclear stress test dictation.PATIENT RELATED INFORMATION:Age: 53 Height: ft in Weight: lbs. oz. Sex:FSmokes: Cigars: #Cigs: Pipe: Inactive:Mod.Man.Labor: Heavy Work: Sedentary:Sedentary and Ex. Program: HR Since last meal:REASON FOR PERFORMING TEST:MEDICATIONS:INTERPRET ATION:EKG response to exercise:Blood pressure response:Rhythm:Conduction :ST segment:Heart rate response:Fitness classification:Resting ECG:The patient underwent Lexiscan per protocol. Resting dose of sestamibi was 12.2 mCi.Stress test was 31.3. During acquisition of raw images, no significant motion ofthe cardiac silhouette. There was a defect noted involving the anterior wallsuggesting reversibility and also the lateral wall suggesting reversibility is well.There was mild chest dilatation. Ejection fraction was 60%. TID was 1.09.CONCLUSION:1. Positive ischemia seen involving the anterior wall and also the lateral wall.2. Ejection fraction 60%.3. Mild stress dilatation was noted. ___Jc Lewis, [facility] PATIENT NAME: SANDY BHATTI [facility] [address] White MEDICAL REC #: [id number], [place] [address] DATE: 05/11/18DISCHARGE DATE: 05/15/18ATTENDING PHY: Anderson Rubio MDCARDIAC STRESS TEST REPORTGK/[id number]: 05/12/2018 12:07DT: 05/12/2018 14:17SSI File#: [id number] #: [id number]/Reviewed by09/13/058423 [facility] PATIENT NAME: SANDY BHATTI [facility] [address] White MEDICAL REC #: [id number], [place] [address] DATE: 05/11/18DISCHARGE DATE: 05/15/18ATTENDING PHY: Anderson Rubio MDCARDIAC STRESS TEST REPORT Normal [facility] CKMB PROFILEon 05-11-2018 RI TNP Normal 0-2.5 [facility] Comment on above: Order Comment: Campu s: MPatient transfused or in the past 3 months? NOIs This Patient Going To Surgery? YSurgery Date: 10/04/17 Performed By: #### L 500.93281, L550.65612 ####[facility] [id number] [place], [place] [address]Bi# [phone] CK enzyme act/vol 59 U/L Normal 26-192 [facility] Comment on above: Order Comment: Campu s: MPatient transfused or in the past 3 months? NOIs This Patient Going To Surgery? YSurgery Date: 10/04/17 Performed By: #### L 500.44001, L550.50170 ####[facility] [id number] [place], [place] [address]Xn# [phone] CK.MB mass conc 2.2 ng/mL Normal 0.5-3.6 [facility] Comment on above: Order Comment: Campu s: MPatient transfused or in the past 3 months? NOIs This Patient Going To Surgery? YSurgery Date: 10/04/17 Performed By: #### L 500.73348, L550.46972 ####[facility] [id number] [place], [place] [address]By# [phone] CRon 05-11-2018 CONSULTATION REPORT Normal [facility] CR DATE OF CONSULTATION : 05/11/2018This is a 53-year-old white female with chronic kidney disease, believed to besecondary to diabetic hypertensive nephropathy, on hemodialysis Monday, Monday,and Monday via a right IJ temporary dialysis catheter [facility] underthe expert care of Dr. Lane Falk since February this year. She started having pain inher chest yesterday like an elephant sitting on her chest, associated with nausea,vomiting, dyspnea, diaphoresis, palpitations. Went to the emergency department.They transferred her here. She denies any other problems. No recent fevers, chills,cough. No difficulty initiating or stopping her stream of urine. No incompleteemptying. She has not seen any blood in her urine. She has had no pain ordiscomfort during micturition. No constipation or diarrhea. No new rashes orarthralgias. She has a poorly functioning left upper extremity AV fistula which hasbeen manipulated recently and had a temporary catheter placed.PAST HISTORY: Significant for:1. Diabetes.2. Hypertension.3. Hyperlipidemia.4. Depression.5. Hypothyroidism.FAMILY HISTORY: Father with colon cancer. Mother with lung cancer. Asister has diabetes. A brother has diabetes and kidney failure.SOCIAL HISTORY: She lives in [place] with her , quit smoking 3 years ago.Does not drink any alcohol or use any other drugs. She does not work outside [employer].ALLERGIES: CODEINE, LATEX, AND PENICILLINS.MEDICATIONS AT HOME:1. Amlodipine.2. Aspirin.3. Atorvastatin.4. Calcium.5. Clonidine.6. Folic acid.7. Insulin.8. Synthroid.9. Metoprolol.REVIEW OF SYSTEMS: Please see history of present illness.PHYSICAL EXAMINATION: [facility] MED[facility] REC #: [id number], [place] [address] DATE: 05/11/18DISCHARGE DATE:CONSULTATION REPORT ATTENDING PHY: Anderson Rubio MDVital signs: Temperature 98.1, heart rate 104, respiratory rate 18, blood przerkxe119/68.General: She is a well-appearing white female in no acute distress. She answersquestions appropriate and is cooperative with exam. She appears comfortable withconversation.Neck: Supple. No lymphadenopathy.Heart: Had a regular rate and rhythm. Normal S1 and S2.Lungs: Clear to auscultation posteriorly. No crackles or wheezes.Abdomen: Bowel sounds positive x4, soft, nontender, nondistended. No mass palpatedor bruits auscultated.Extremities: Warm and dry with only trace pretibial edema bilaterally.LABORATORIES: From today, show a white count of 7.1, hemoglobin 11.1, platelet of183,000. Potassium today was 5.2, creatinine of 4.3, calcium 9.3, phosphorus 5.1,albumin 3.1.ASSESSMENT AND PLAN:1. Chest pain, to be worked up by Cardiology. Unclear as to what their plans are.2. Chronic kidney disease. She will have dialysis tomorrow. Will get her potassiumbetter controlled.3. Anemia. Her hemoglobin is pretty good. Will check her iron levels.4. Hypertension. Blood pressure is well-controlled. Arthur Ibrahim, AMINA/[id number]: 05/11/2018 17:02DT: 05/12/2018 10:03SSI File#: [id number] #: [id number]/Reviewed by05/14/18 0731 [facility] PATIENT NAME: SANDY BHATTI [id number] [facility] [address] White MEDICAL REC #: [id number], [place] [address] DATE: 05/11/18DISCHARGE DATE:CONSULTATION REPORT ATTENDING PHY: Anderson Rubio MD [facility] 05-11-2018 Glucose mass conc 307 mg/dL High 85-125 [facility] Glucose mass conc 216 mg/dL High 85-125 [facility] Glucose mass conc 109 mg/dL Normal 85-125 [facility] Glucose mass conc 56 mg/dL Low 85-125 [facility] HP.IMS.ADMon 05-11-2018 Admission-H&P [facility] HP.IMS.ADM [facility] Patient Name: SANDY BHATTI [id number] [employer] [place] Date of : [address] [place] [address] Unit Number: [id number] Number: [id number] P Patient Status: ADM INoAttending Doctor: Anderson Rubio MDService Date: 05/11/18 1526History of Present IllnessSource of Information PatientChief Complaint/Present Illness:Patient transferred from [facility] for chest pain evaluationHistory of Present IllnessPatient is a 53-year-old female end-stage renal disease on hemodialysis, nephroticsyndrome, diabetes mellitus was transferred from [facility]. Patient presentedto [facility] with chest pain. Patient states it started yesterday and was onand off and this morning it progress it to the point it was like 10 over 10 as though adifferent sitting on her chest associated with some shortness of breath, nausea she didhave increases 1 time no diaphoresis. Patient evaluated in the ER at [facility].Troponins negative. Patient was transferred to [facility] for further cardiacevaluation. Currently patient denies any chest pain. ER physician from [facility] inmentioned that chest pain responded to nitroglycerin. Patient had cardiac catheterizationlong time back with the no occlusive coronary artery disease at that time. Has had nofurther cardiac workup after that.Past Medical/Surgical HxPast Medical HistoryInsulin-dependent diabetes with nephropathy retinopathy and neuropathy, coronary arterydisease, hypertension, depression, hyperlipidemia and hypothyroidismPast Surgical HistoryAV fistula placement, hemodialysis catheter placementFamily/Social HistoryFamily HistoryFATHER, .FH: colon cancerMOTHER, .FH: lung cancerSISTERFH: diabetes mellitusBROTHERFH: diabetes mellitusFH: kidney failureSocial HxQuit smoking 3 years ago. Denies any alcohol intake. Lives with her .Advance DirectivesAdvance Directives Full CodeAllergies/Home MedicationsAllergiesCoded Allergies:CODEINE (05/11/18)LATEX (05/11/18)PENICILLINS (05/11/18)Uncoded Allergies:*CODEINE (Mild, NAUESEA and VOMITING 03/19/18)*LATEX (Mild, BREAKS OUT 03/19/18)*PENICILLIN (Mild, SWELLS UP 03/19/18)Home MedicationsamLODIPine BESYLATE* (Norvasc 5MG Tab*) 5 MG TABLET 10 MG PO QDAY, Ref 0 (Reported)Entered as Reported by BHANU COLUNGA on 09/29/171613Last Action: Reviewed on 05/11/181344 by ANDERSON RUBIOAspirin* (Aspir 81 MG Tab*) 81 MG TABLET. 81 MG PO QDAYWM, Ref 0 (Reported)TO CONTINUE FOR PROCEDURE PER 'S INSTRUCTIONSEntered as Reported by BHANU COLUNGA on 09/29/171611Last Action: Reviewed on 05/11/181344 by Kam RUBIO Calcium* (Lipitor 40MG Tab*) 40 MG TABLET 40 MG PO QHS, Ref 0 (Reported)Entered as Reported by BHANU COLUNGA on 09/29/17 161Last Action: Reviewed on 05/11/18 134 by ANDERSON RUBIOCalcium Acetate* (Phoslo cap*) 667 MG CAPSULE 1,334 MG PO TIDWM, Ref 0 (Reported)Entered as Reported by KARTHIKEYAN ANDERS on 03/19/18 1404Last Action: Reviewed on 05/11/181344 by ANDERSON RUBIOcloNIDine HCL* (Catapres 0.2MG Tab*) 0.2 MG TABLET 0.3 MG PO BID, Ref 0 (Reported)Entered as Reported by BHANU COLUNGA on 09/29/17 161Last Action: Reviewed on 05/11/181344 by ANDERSON RUBIOFolimckenzie Acid/Vitamin B Comp W-C* (Nephrocaps Softgel*) 1 MG CAPSULE 1 CAP PO QDAY, Ref 0(Reported)Entered as Reported by KARTHIKEYAN ANDERS on 03/19/18 140Last Action: Reviewed on 05/11/181344 by YAMILETH RUBIOHAInsulin Aspart (Novolog) 100 UNIT/1 ML VIAL 8 UNITS TIDAC, Ref 0 (Reported)Entered as Reported by BHANU COLUNGA on 09/29/17 161Last Action: Reviewed on 05/11/181344 by DIMA RUBIOnsulin Degludec (Tresiba Flextouch U-100) 100 UNIT/1 ML INSULN.PEN 40 UNIT SQ QHS, Ref0 (Reported)Entered as Reported by KARTHIKEYAN ANDERS on 03/19/181404Last Action: Reviewed on 05/11/181344 by Vipul RUBIOothyroxi ne Sodium* (Synthroid 0.112MG Tab*) 112 MCG TABLET 0.112 MG PO QDAYAC, Ref 0(Reported)Entered as Reported by BHANU COLUNGA on 09/29/17 1611Last Action: Reviewed on 05/11/181344 by YAMILETH RUBIOHAmetoprolol TARTRATE* (Lopressor 50MG Tab*) 50 MG TABLET 50 MG PO BID, Ref 0 (Reported)Entered as Reported by BHANU COLUNGA on 09/29/17 161Last Action: Reviewed on 05/11/181344 by Ruy RUBIOw of SystemsROS: OtherConstitutional - [Denies any fever, chills, fatigue.]Eyes - [Denies any blurred vision, double vision.]HEENT -[Denies any difficulty hearing, difficulty swallowing, headaches, or sore throat.]Cardiovascular - [Denies any palpitations or dizziness.]Respiratory - [Denies any cough, hemoptysis, shortness of breath.]Gastrointestinal - [Denies any abdominal pain, diarrhea, nausea, or vomiting.]Genitourinary - [Denies any dysuria, hematuria. Skin denies any jaundice, rash.]Neurologic - [Denies any blurred vision, double vision, slurred speech, headaches, ornumbness and tingling.]Psychiatric - [Denies any anxiety, depression.]Physical ExamVital SignsVital Signs (Last)ResultDate TimePulse Ex7041/ 1250B/P129/6809/ 1250O2 DeliveryROOM AIR05/11 4219Ynnf48.109/ 7820Afddm49222/ 9614Oske0379/ 1250Physical Exam SummaryOn examinationHEENT pupils are equal and reactive to light and accommodation. No pallor. No icterusNeck is suppleCardiovascular system S1-S2 normal. Systolic murmur heardChest clear bilateralAbdomen soft . Nontender. Bowel sounds present.Extremities trace edema bilateral lower extremitiesPatient is alert awake oriented to time place personNo distressAdditionalLaborato ry TestsTestResultDate TimeChemistryWhole Bld Glucose (85 - 125 MG/DL)11321/ 1423[facility] in hospitalWBC 6 hemoglobin 10 hematocrit 29.4 platelets 233Sodium 141 potassium 4.7 chloride 102 bicarbonate 28 BUN 49 creatinine 5.3 AST 17 alkalinephosphatase 112 calcium 9.2 albumin 3.6 BNP 391 EKG single lead shows normal sinus rhythmConclusion / PlanConclusion1. Chest painAssessment and planChest pain rule out AK. Add patient will be admitted as observation. Cycle troponins.Obtain EKG. Sublingual nitroglycerin and Nitropaste. Morphine for pain added. Obtaincardiac stress test. If troponins negative. Aspirin.Insulin-dependent diabetes mellitus continue home medications with sliding scale insulinand diabetic dietHypertension continue home medicationDepression, hyperlipidemia and hypothyroidism continue medicationChronic anemia stableDVT prophylaxis with heparin subcutaneousPlan discussed with the patient and family at bedside.DisclaimerThis dictation was created using voice recognition software.Phonetic and/or minor grammatical errors may exist.eSign Date and TimeAnderson Rubio MD Verified/Reviewed by 05/11/18 1533 Normal [facility] PROG.NEPHon 05-11-2018 Protein mass conc [facility] Patient Name: SANDY BHATTI [id number] [employer] [place] Date [place] : [address] [address] Unit Number: [id number] Number: [id number] Note-Nephrology Patient Status: ADM INoAttending Doctor: Anderson Rubio MDService Date: 05/11/18 1706Progress Note-Nephrology([facility])Subj ectiveSubjective:[id number] claimerThis dictation was created using voice recognition software.Phonetic and/or minor grammatical errors may exist.eSign Date and Arthur Murrieta MD Verified/Reviewed by 05/11/18 1706 Normal [facility] Protein mass conc Normal [facility] TROPONIN Ion 05-11-2018 Troponin I.cardiac mass conc 0.051 ng/mL High 0.000-0.045 [facility] Comment on above: Order Comment: Campu s: MPatient transfused or in the past 3 months? NOIs This Patient Going To Surgery? YSurgery Date: 10/04/17 Performed By: #### L 500.74423, L550.03639 ####[facility] K[address] [place] [address]In# [phone] CBCon 05-01-2018 Erythrocyte distribution width Auto Ratio (RBC) 12.7 % Normal 11-14.5 [facility] Comment on above: Order Comment: Campu s: M Performed By: #### L 200.44072 ####[facility] [id number] [place], [place] [address]Xl# [phone] Hematocrit Auto Volume Fraction (Bld) 32.0 % Low 35.0-47.0 [facility] Comment on above: Order Comment: Campu s: M Performed By: #### L 200.93798 ####[facility] [id number] [place], [place] [address]Bl# [phone] Hemoglobin mass conc (Bld) 10.5 g/dL Low 11.5-15.5 [facility] Comment on above: Order Comment: Campu s: M Performed By: #### L 200.44887 ####[facility] [id number] [place], [place] [address]Vs# [phone] MCHC Auto mass conc (RBC) 32.8 g/dL Normal 32.0-36.0 [facility] Comment on above: Order Comment: Campu s: M Performed By: #### L 200.82712 ####[facility] [id number] [place], [place] [address]Vv# [phone] MCV Auto Entitic volume (RBC) 90.7 fL Normal 80.0-99.0 [facility] Comment on above: Order Comment: Campu s: M Performed By: #### L 200.13022 ####[facility] [id number] [place], [place] [address]Ph# [phone] Nucleated RBC/100 WBC Ratio (Bld) 0.0 % Normal Less than 1 [facility] Comment on above: Order Comment: Campu s: M Performed By: #### L 200.29643 ####[address] [address]Ax# [phone] Platelet mean volume Auto Entitic volume (Bld) 9.4 fL Normal 9.4-12.4 [facility] Comment on above: Order Comment: Campu s: M Performed By: #### L 200.00900 ####[facility] [id number] [place], [place] [address]Ph# [phone] Platelets Auto #/vol (Bld) 202 K/CU MM Normal 150-450 [facility] Comment on above: Order Comment: Campu s: M Performed By: #### L 200.56178 ####[facility] [id number] [place], [place] [address]Ph# [phone] RBC Auto #/vol (Bld) 3.53 M/CU MM Low 3.90-5.30 [facility] Comment on above: Order Comment: Campu s: M Performed By: #### L 200.07108 ####[facility] VZLUCSUJQH[address] [place] [address]Av# [phone] WBC Auto #/vol (Bld) 6.6 K/CU MM Normal 4.5-11.0 [facility] Comment on above: Order Comment: Campu s: M Performed By: #### L 200.09267 ####[facility] PGMIJUZZRM5994 [place], [place] [address]Fl# [phone] GFR ESTon 05-01-2018 IF AMER 13 ML/MIN Normal [facility] Comment on above: Order Comment: Campu s: MPatient transfused or in the past 3 months? NOIs This Patient Going To Surgery? YSurgery Date: 10/04/17 Performed By: #### L 500.93413, L500.41400 ####[facility] [id number] [place], [place] [address]Al# [phone] IF non-AFR AMER 11 ML/MIN Normal [facility] Comment on above: Order Comment: Campu s: MPatient transfused or in the past 3 months? NOIs This Patient Going To Surgery? YSurgery Date: 10/04/17 Performed By: #### L 500.10626, L500.39603 ####[facility] [id number] [place], [place] [address]Mx# [phone] GLUCOSE METERon 05-01-2018 Glucose mass conc 84 mg/dL Low 85-125 [facility] ORon 05-01-2018 OPERATIVE REPORT Normal [facility] OR DATE OF SERVICE: 05/01/2018PREOPERATIVE DIAGNOSIS: Failing arteriovenous fistula, nonmaturation left upperextremity.POSTOPERATI VE DIAGNOSIS: Failing arteriovenous fistula, nonmaturation left upperextremity.OPERATION:1 . Ultrasound guided access to the radial artery, antegrade, left upper extremity.2. Arteriogram of left upper extremity with fistulogram.3. Angioplasty of radial artery, distal and mid with 3 mm x 6 cm counter balloon x2.COMPLICATIONS: None.SURGEON: Héctor Herrera MDANESTHESIA: IV sedation. Monitored care by Dr. Herrera.MEDICATIONS:1. Versed 1 mg.2. Fentanyl 25 mg.TOTAL TIME: 36 minutes.X-RAY TIME: 7.5.DOSE: 12.PROCEDURE: The patient was brought to the angio-suite where she was placed in thesupine position. Left arm was prepped and draped in the usual fashion. Ultrasoundguidance was used to gain access to the left brachial artery using single wiremicropuncture technique in an antegrade fashion. Exchanged out for a 4-Eritrean sheathover a guidewire which was fashioned down the radial artery. Angiogram of the leftupper extremity revealed multiple stenoses through the mid and distal radial artery.The fistula was dilated about 4-5 mm. The patient was systemically heparinized. was exchanged out for an 0.14 wire down the radial artery. Angioplastied witha 3.6. After 5 minutes a counter balloon to 15 atmospheres for two 1 minuteinflations showed significant improvement in flow to the radial artery. At thispoint I felt we had maximized her inflow. Sheath was pulled. Pressure was heldafter 10 mg of Protamine was given to provide hemostasis.The patient tolerated the procedure well. [facility] PATIENT NAME: SANDY BHATTI [facility] REC #: [id number], [place] [address] DATE:DISCHARGE DATE:OPERATIVE REPORT ATTENDING PHY: Héctor Herrera MD J MARTINA ChristiansonP/[id number]: 05/01/2018 15:31DT: 05/01/2018 16:26SSI File#: [id number] #: [id number] - This document may contain phonetic, minor grammatical errors, or errorsdue to voice quality.Verified/Reviewed by05/03/18 0806 [facility] PATIENT NAME: SANDY BHATTI32Jonathan [facility] [address] [facility] MEDICAL REC #: [id number], [place] [address] DATE:DISCHARGE DATE:OPERATIVE REPORT ATTENDING DONNIEY: Héctor Herrera MD Normal [facility] RENALon 05-01-2018 Albumin mass conc 3.1 g/dL Low 3.2-5.0 [facility] Comment on above: Order Comment: Campu s: M Performed By: #### L 500.21852, L500.68438 ####[facility] [id number] [place], [place] [address]Qg# [phone] Anion gap 3 molar conc 10 mmol/L Normal 5-16 [facility] Comment on above: Order Comment: Campu s: M Performed By: #### L 500.06246, L500.27902 ####[facility] [id number] [place], [place] [address]Kc# [phone] Calcium mass conc 9.3 mg/dL Normal 8.5-10.1 [facility] Comment on above: Order Comment: Campu s: M Performed By: #### L 500.17116, L500.49195 ####[facility] [id number] [place], [place] [address]Bd# [phone] Chloride molar conc 101 mmol/L Normal 98-107 [facility] Comment on above: Order Comment: Campu s: M Performed By: #### L 500.39725, L500.61443 ####[facility] [id number] [place], [place] [address]Oq# [phone] CO2 molar conc 27 mmol/L Normal 21-32 [facility] Comment on above: Order Comment: Campu s: M Performed By: #### L 500.56325, L500.55340 ####[facility] [id number] [place], [place] [address]Zz# [phone] Creatinine mass conc 4.360 mg/dL High 0.510-0.950 [facility] Comment on above: Order Comment: Campu s: M Result Comment: Bea ents receiving either N-Acetylcysteine (NAC) orMetamizole prior to venipuncture, may have falsely depressedresults. Performed By: #### L 500.55835, L500.34309 ####[facility] [id number] [place], [place] [address]Hp# [phone] Glucose mass conc 155 mg/dL High 70-100 [facility] Comment on above: Order Comment: Campu s: M Result Comment: 70-1 00- Normal Fasting; 100-125 Impaired Fasting; greaterthan 126 on more than one result- Diabetes. ADA guidelines.Results may be falsely elevated after the administration ofSulfapyridine.Results may be falsely depressed after the administration ofSulfasalazine. Performed By: #### L 500.78773, L500.35388 ####[facility] [id number] [place], [place] [address]Ro# [phone] Phosphate mass conc 5.1 mg/dL High 2.5-4.9 [facility] Comment on above: Order Comment: Campu s: M Performed By: #### L 500.14847, L500.77096 ####[facility] [id number] [place], [place] [address]Uw# [phone] Potassium molar conc 5.2 mmol/L High 3.5-5.1 [facility] Comment on above: Order Comment: Campu s: M Performed By: #### L 500.48330, L500.17466 ####[facility] [id number] [place], [place] [address]Fs# [phone] Sodium molar conc 138 mmol/L Normal 136-145 [facility] Comment on above: Order Comment: Campu s: M Performed By: #### L 500.73925, L500.47278 ####[facility] [id number] [place], [place] [address]Sj# [phone] Urea nitrogen mass conc 42 mg/dL High 7-26 [facility] Comment on above: Order Comment: Campu s: M Performed By: #### L 500.81105, L500.93436 ####[facility] [id number] [place], [place] [address]Gx# [phone] Urea nitrogen/Creatinine mass ratio 10 mg/mg Low 15-24 [facility] Comment on above: Order Comment: Campu s: M Performed By: #### L 500.62699, L500.45867 ####[facility] [id number] [place] [address]Cy# [phone] CBCon 03-20-2018 Erythrocyte distribution width Auto Ratio (RBC) 12.8 % Normal 11-14.5 [facility] Comment on above: Order Comment: Campu s: M Performed By: #### L 200.03073 ####[facility] [id number] [place] [address]Fs# [phone] Hematocrit Auto Volume Fraction (Bld) 33.4 % Low 35.0-47.0 [facility] Comment on above: Order Comment: Campu s: M Performed By: #### L 200.44044 ####[facility] [id number] [place] [address]Xb# [phone] Hemoglobin mass conc (Bld) 10.9 g/dL Low 11.5-15.5 [facility] Comment on above: Order Comment: Campu s: M Performed By: #### L 200.69927 ####[facility] [id number] [place] [address]Le# [phone] MCHC Auto mass conc (RBC) 32.6 g/dL Normal 32.0-36.0 [facility] Comment on above: Order Comment: Campu s: M Performed By: #### L 200.42857 ####[facility] [id number] [place], [place] [address]Wx# [phone] MCV Auto Entitic volume (RBC) 89.8 fL Normal 80.0-99.0 [facility] Comment on above: Order Comment: Campu s: M Performed By: #### L 200.89146 ####[facility] [id number] [place], [place] [address]Ki# [phone] Nucleated RBC/100 WBC Ratio (Bld) 0.0 % Normal Less than 1 [facility] Comment on above: Order Comment: Campu s: M Performed By: #### L 200.25772 ####[facility] [id number] [place] [address]Hb# [phone] Platelet mean volume Auto Entitic volume (Bld) 9.6 fL Normal 9.4-12.4 [facility] Comment on above: Order Comment: Campu s: M Performed By: #### L 200.37885 ####[facility] [address] [place], [place] [address]Qi# [phone] Platelets Auto #/vol (Bld) 225 K/CU MM Normal 150-450 [facility] Comment on above: Order Comment: Campu s: M Performed By: #### L 200.91227 ####[facility] [id number] [place] [address]Cg# [phone] RBC Auto #/vol (Bld) 3.72 M/CU MM Low 3.90-5.30 [facility] Comment on above: Order Comment: Campu s: M Performed By: #### L 200.63233 ####[facility] [id number] [place] [address]Bm# [phone] WBC Auto #/vol (Bld) 8.7 K/CU MM Normal 4.5-11.0 [facility] Comment on above: Order Comment: Campu s: M Performed By: #### L 200.43531 ####[facility] [id number] [place] [address]Jj# [phone] GFR ESTon 03-20-2018 IF AMER 15 ML/MIN Normal [facility] Comment on above: Order Comment: Campu s: M Performed By: #### L 500.78322, L500.35275 ####[facility] [id number] [place], [place] [address]Kw# [phone] IF non-AFR AMER 12 ML/MIN Normal [facility] Comment on above: Order Comment: Nenita s: M Performed By: #### L 500.00045, L500.85985 ####[facility] [id number] [place], [place] [address]Ly# [phone] GLUCOSE METERon 03-20-2018 Glucose mass conc 193 mg/dL High 85-125 [facility] ORon 03-20-2018 OPERATIVE REPORT Normal [facility] OR DATE OF SERVICE: 03/20/2018PREOPERATIVE DIAGNOSIS: 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 Ultrasound guided antegrade access to the left radial artery.2. Left upper extremity arteriogram with fistulogram.3. Angioplasty of left radial artery with a 2.5 mm x 120 mm [place] balloon x2.4. Angioplasty of the left radial artery with a 3 mm x 120 mm [place] balloon x2.5. Angioplasty of mid-left radial artery with a 3 mm x 2 cm [place] balloon and 3 mmx 4 cm Akil balloon.6. Proximal anastomosis angioplasty of radiocephalic arteriovenous fistula with a 4mm x 6 cm [place] balloon x2.COMPLICATIONS: None.ANESTHESIA: IV sedation, monitored care with local anesthetic, 1 mg of Versed, 25mcg of fentanyl.TOTAL TIME: 59 minutesREASON FOR PROCEDURE: This is a 53-year-old white female who is status post leftradiocephalic AV fistula and non-maturation due to radial artery stenosis as well asproximal anastomosis, scheduled for a repeat fistulogram with angioplasty. Therisks, benefits of the procedure were detailed with her. All questions wereanswered, and she agreed to proceed.PROCEDURE DESCRIPTION: The patient was brought to the angioplasty suite where shewas placed in supine position, placed on pulse oximetry and cardiac monitoring.Given IV sedation and fentanyl. Left arm was prepped and draped in usual fashion.Ultrasound guidance was used to gain access in antegrade fashion to the left brachialartery using a single-wire micropuncture technique, ultrasound-guided. Exchanged outfor a 4-Eritrean sheath over a Glidewire.Angiogram of the left upper extremity revealed the anastomosis of the radial artery,quite stenosed throughout, long segmental. Systemically heparinized the patient.Exchanged out for a 0.014 Journey wire. I was able to go down the radial artery,past the anastomosis and retrograde up the arteriovenous fistula outflow tract.After 5 minutes, we angioplastied the radial artery with a 2.5 x 120 [place] balloonto 12 atmospheres, 1-minute inflation x2, upsized to a 3 x 12 cm. [facility] PATIENT NAME: SANDY BHATTI K132Jonathan [facility] [address] [facility] REC #: [id number], [place] [address] DATE:DISCHARGE DATE:OPERATIVE REPORT ATTENDING PHY: Héctor Herrera 2 residual stenoses. Had to angioplasty those with shorter Akil balloons, a3 x 2 and a 3 x 4. A little resistance in the mid-segment but otherwise got thedistal stenosis. The proximal anastomosis was then addressed with a 4 x 6 Coyoteballoon across the anastomosis, then up in the proximal fistula. Two 1-minuteinflations to 14 atmospheres. It showed significant improvement of flow through thefistula. No signs of complicating factors.The wire was pulled. The sheath was left in after ACT had normalized to providehemostasis for manual compression. The patient tolerated the procedure well and wastransferred to the recovery room in stable condition. CIPRIANO Luna/[id number]: 03/20/2018 15:24DT: 03/20/2018 17:46SSI File#: [id number] #: [id number]/Reviewed by03/21/18 0734 PREJE [facility] PATIENT NAME: SANDY BHATTI [facility] [address] [facility] MEDICAL REC #: [id number], [place] [address] DATE:DISCHARGE DATE:OPERATIVE REPORT ATTENDING PHY: Héctor Herrera MD [facility] RENALon 03-20-2018 Albumin mass conc 3.1 g/dL Low 3.2-5.0 [facility] Comment on above: Order Comment: Campu s: M Performed By: #### L 500.00368, L500.37763 ####[facility] [id number] [place], [place] [address]Kp# [phone] Anion gap 3 molar conc 10 mmol/L Normal 5-16 [facility] Comment on above: Order Comment: Campu s: M Performed By: #### L 500.59372, L500.77510 ####[facility] [id number] [place], [place] [address]It# [phone] Calcium mass conc 8.4 mg/dL Low 8.5-10.1 [facility] Comment on above: Order Comment: Campu s: M Performed By: #### L 500.98342, L500.85672 ####[facility] [id number] [place], [place] [address]Px# [phone] Chloride molar conc 102 mmol/L Normal 98-107 [facility] Comment on above: Order Comment: Campu s: M Performed By: #### L 500.34907, L500.06288 ####[facility] [id number] [place], [place] [address]Rs# [phone] CO2 molar conc 27 mmol/L Normal 21-32 [facility] Comment on above: Order Comment: Campu s: M Performed By: #### L 500.90992, L500.96828 ####[facility] [id number] [place], [place] [address]Vd# [phone] Creatinine mass conc 3.840 mg/dL High 0.510-0.950 [facility] Comment on above: Order Comment: Campu s: M Result Comment: Bea ents receiving either N-Acetylcysteine (NAC) orMetamizole prior to venipuncture, may have falsely depressedresults. Performed By: #### L 500.41669, L500.63544 ####[facility] [id number] [place], [place] [address]Bt# [phone] Glucose mass conc 252 mg/dL High 70-100 [facility] Comment on above: Order Comment: Campu s: M Result Comment: 70-1 00- Normal Fasting; 100-125 Impaired Fasting; greaterthan 126 on more than one result- Diabetes. ADA guidelines.Results may be falsely elevated after the administration ofSulfapyridine.Results may be falsely depressed after the administration ofSulfasalazine. Performed By: #### L 500.90714, L500.04045 ####[facility] [id number] [place], [place] [address]Ub# [phone] Phosphate mass conc 4.7 mg/dL Normal 2.5-4.9 [facility] Comment on above: Order Comment: Campu s: M Performed By: #### L 500.35417, L500.42719 ####[facility] [id number] [place], [place] [address]Nr# [phone] Potassium molar conc 4.7 mmol/L Normal 3.5-5.1 [facility] Comment on above: Order Comment: Campu s: M Performed By: #### L 500.32127, L500.14921 ####[facility] [id number] [place], [place] [address]Bt# [phone] Sodium molar conc 139 mmol/L Normal 136-145 [facility] Comment on above: Order Comment: Campu s: M Performed By: #### L 500.62542, L500.73818 ####[facility] [id number] [place], [place] [address]Rg# [phone] Urea nitrogen mass conc 36 mg/dL High 7-26 [facility] Comment on above: Order Comment: Campu s: M Performed By: #### L 500.73398, L500.67916 ####[facility] [id number] [place], [place] [address]Za# [phone] Urea nitrogen/Creatinine mass ratio 9 mg/mg Low 15-24 [facility] Comment on above: Order Comment: Campu s: M Performed By: #### L 500.15776, L500.71708 ####[facility] [id number] [place], [place] [address]Bu# [phone] GLUCOSE METERon 02-16-2018 Glucose mass conc 210 mg/dL High 85-125 [facility] Glucose mass conc 330 mg/dL High 85-125 [facility] OTARon 02-16-2018 OT Assessment Report Normal [facility] OTAR Occupational TherapyInpatient EvaluationMedical Diagnosis: 1. Chronic kidney disease stage 5, uremic symptoms.2. Anasarca with nephrotic syndrome.OCCUPATIONAL PROFILE AND HISTORYTherapy Diagnosis:Rank Code Description1 Z74.0 Reduced mobility2 Z74.1 Need for assistance with personal careDemographics:Age: 53YGender: FemalePrimary Language: EnglishPreferred Language: EnglishReferring Service/Team: MedicinePast Medical History: PAST MEDICAL HISTORY:1. Insulin-dependent diabetes with nephropathy, retinopathy, neuropathy.2. Coronary artery disease in the past, no intervention.3. Hypertension.4. Depression.5. Hyperlipidemia.6. Hypothyroidism.7. Anemia; does not require Procrit.History of Present Illness: 02/13/18Additional Information: REASON FOR ADMISSION: CKD stage 5, end stage disease,uremia, anasarca.HISTORY: Mrs. Sandy Bhatti is a very pleasant 53-year-old lady, suffered frominsulin-dependent diabetes with complications of retinopathy, neuropathy,nephropathy, and finding some anasarca. I have been following her over the lastyearat [place], came to the office today with significant edema andanasarca,weakness and tiredness, cannot function. We have been preparing her fordialysistreatment. We had AV fistula created by Dr. Herrera with Intervention, has notmatabdyet, and after working on her to get on the transplant list to [facility]kid[facility] yet to be done. In the office she wasweak,tired, cannot stand. She gained a lot of weight and cannot function at home andwe [facility] PATIENT NAME: SANDY BHATTI K132Jonathan [facility] [address] [facility] REC #: [id number], [place] [address] DATE: 02/13/18ERVICE DATE: 02/16/18Occupational Therapy Assessment ATTENDING HANS: Hao Nunez MDfe she was uremic, to require dialysis treatment.Date of Admission: 02/13/2018 2:26:00 PMRehabilitation Precautions/Restrictions:f all percautionImaging/Testing Results from Chart: chest x-ray Impression: Borderline to mildcardiomegaly. Mild central pulmonaryvenous congestion.Left retrocardiac airspace opacity and small effusion.Prior Level of Functioning:Self Care: Patient completed the activities by him/herself, with or without anassistive device, with no assistance from a helper.Functional Cognition: Patient completed the activities by him/herself, with orwithout an assistive device, with no assistance from a helper.Has a walker but does not use. Independent in ADLs, does cooking andcleaningPatient/Caregiv er Goals: Patient's functional goals: go homePain: Patient currently without complaints of pain.Home Environment: Patient lives with 5am-1pm , who is able to assistpatient at discharge. Patient lives in a single family home. Home is two levels.Patient is not required to manage stairs within the home. First floor fullbathroom setup available. No stairs to enter the home. There is no rampavailable to enter home.Equipment Owned: walk in shower with grabbars, high toilet with sink on side ofcomodeMarital Status: MSocial History:Children: 1[facility]ide[facility]Employment Status: disabilityRecreational Activities/Hobbies: hikingOBJECTIVE/OCCUPATION AL PERFORMANCEActivities of Daily LivingCurrent Status Previous StatusADLsFeeding Independent -Grooming Independent -Bathing-UE Independent -Bathing-LE Independent -Dressing-UE Independent -Dressing-LE Independent -Toileting Independent - *[facility] PATIENT NAME: SANDY BHATTI [id number] [facility] [address] [facility] REC #: [id number], [place] [address] DATE: 02/13/18ERVICE DATE: 02/16/18Occupational Therapy Assessment ATTENDING PHY: Hao Nunez [facility] Daily Activities:Putting On/Taking Off Lower Body Clothing: No help neededBathing:: No help neededToileting: No help neededPutting On/Taking Off Upper Body Clothing: No help neededGrooming: No help neededEating a Meal: No help neededRaw Score = 24 , AM-PAC t-Scale Score = 57.54 and G-Code Modifier = CHFunctional Mobility:Bed Mobility: Not assessed.Transfers: Patient transferred sit to/from stand with independence.Patient transferred to/from the toilet with modified independence. Patient usedthe following equipment: Grab bars. use grabbar as unilateral armsupport whichpatient will have at home with her sinkLocomotion/Gait/Ambula tion: Patient was modified independent withgait/ambulation for inside rom and hallway . No assistive devices were required.x1 minor LOB patient self recovered. Walks slightly guarded but WFLRange of MotionUpper Extremity:Grossly within functional limitsStrengthUpper Extremity:Not within functional limits R UE 4/5, L UE deferred due to fistualBalance:Static balance in a seated position is good.Dynamic balance in a seated position is good.Static balance in a seated position is good.Dynamic balance in a seated position is good.Static balance in a standing position is good.Dynamic balance in a standing position is good. good-Tone/Spasticity: No relevant impairments.Sensation: Grossly intact.Fine Motor Coordination:Bilateral Hands: Fine motor coordination is not impaired.Gross Motor Coordination: Upper extremity gross motor coordination is intact.Edema: Edema is present.Location: Bilateral lower extremities edema- Minimal.Location:Lower Extremity Function: grossly WFLVision: glasses [facility] PATIENT NAME: SANDY BHATTI [facility] [address] [facility] REC #: [id number], [place] [address] DATE: 02/13/18ERVICE DATE: 02/16/18Occupational Therapy Assessment ATTENDING HANS: Hao Nunez MDCognition: Within functional limits.Perceptual Skills: Within functional limits.Psychosocial: Within normal limitsInterventions: Evaluation LOW Complexity No treatment provided today.Pain Reassessment: No pain at onset or during treatment, which does not warrantreassessment.Educat ion:The patient's preferred learning method is: Explanation, Demonstration, PrintedmaterialsBarriers to Learning: No barriersLearning Needs: Plan of care.Safety.Functional activities/mobility.Equipm ent.Education Provided: Functional transfers. Activities of daily living. Plan ofcare. Safety.Audience: Patient., Patient and significant other.Mode: Explanation. Demonstration.Response: Verbalized understanding. Demonstrated skill.ASSESSMENTClinical Performance Deficits: Impaired balanceEquipment Recommended: naRehabilitation Potential: Not applicableMotivation/Commi tment to Therapy: Not applicable.Response to Evaluation: Well patient pleasent and motivated, other then minorLOB that patient had when walking and self corrected no deficits otherwisenoted. Patient reports feeling much better and feeling closer to her normalself. At this time patient does not need skilled OT servcies and reported noconcerns for homegoingActivity/Particip ation Problem List and Goals:Functional Impairment: Self CareModifier: [id number] (0% impaired, limited or restricted)Goal:Goal Modifier: X5011-UH (0% impaired, limited or restricted)Discharge Status for Self Care: ResolvedFunctional Impairment Discharge Modifier: P7957-YO (0% impaired, limited orrestricted)Treatment Goals: Not applicable.PLANTreatment Frequency, Duration and Interventions: Occupational Therapy services [facility] PATIENT NAME: SANDY BHATTI32Jonathan [facility] [address] [facility] MEDICAL REC #: [id number], [place] [address] DATE: 02/13/18ERVICE DATE: 02/16/18Occupational Therapy Assessment ATTENDING HANS: Hao Nunez discontinued at this time secondary to: No need for skilled therapyintervention at this time.Recommended Occupational Therapy Follow Up: Upon acute care discharge, thefollowing is currently recommended:No further care.Recommended Consults: Social Work.Development of Plan of Care: Patient and family participated in plan of caredevelopment today.If there are any questions regarding this service, please contact the AcuteTherapy Department at extension [phone] WILL BE TRANSFERRED TO THE (CHOICE OF ACUTE OR REHAB) OCCUPATIONALTHERAPISTComm unication to Nursing:Toilet Transfers: MOD ILocation of Patient at End of Therapy Session: In chair, call light within reachServices:Total Billed: 0 minutes (Timed: 0, Untimed: 0)0.00 Untimed: [48202] OT-EVALUATION LOW COMPLEXITY0.00 Untimed: [] OT Evaluation ORDER0.00 Untimed: [G8987] OT-Self Care-CH0.00 Untimed: [G8988] PM-Fzsx-Ioyi Care-CH0.00 Untimed: [G8989] OT-DC-Self Care-CHSigned by: ELLA Willis 02/16/2018 15:03:49 [facility] PATIENT NAME: SANDY BHATTI [id number] [facility] [address] [facility] REC #: [id number], [place] [address] DATE: 02/13/18ERVICE DATE: 02/16/18Occupational Therapy Assessment ATTENDING PHY: Hao Nunez MD [facility] PTARon 02-16-2018 PT Assessment Report [facility] Physical TherapyInpa tient EvaluationMedical Diagnosis: CHRONIC KIDNEY DISEASE, ANASARCA WITH NEPHROTIC SYNDROME, S/PFISTULOGRAM L ARM AND RENOPLASTY 02/14/18Therapy Diagnosis:Rank Code Description1 R26 Abnormalities of gait and mobilityDemographics:Age: 53YGender: FemalePrimary Language: EnglishPreferred Language: EnglishReferring Service/Team: Alis Nunez Medical History: PAST MEDICAL HISTORY:1. Insulin-dependent diabetes with nephropathy, retinopathy, neuropathy.2. Coronary artery disease in the past, no intervention.3. Hypertension.4. Depression.5. Hyperlipidemia.6. Hypothyroidism.7. Anemia; does not require Procrit.History of Present Illness:Date of Onset: 02/13/18Additional Information: REASON FOR ADMISSION: CKD stage 5, end stage disease,uremia, anasarca.HISTORY: Mrs. Sandy Bhatti is a very pleasant 53-year-old lady, suffered frominsulin-dependent diabetes with complications of retinopathy, neuropathy,nephropathy, and finding some anasarca. I have been following her over the lastyear at [facility], came to the office today with significant edema andanasarca, weakness and tiredness, cannot function. We have been preparing herfor dialysis treatment. We had AV fistula created by Dr. Herrera withIntervention, has not matured yet, and after working on her to get on thetransplant list to combine kidney[facility]pancreas [facility] at [facility] yet to bedone. In the office she was weak, tired, cannot stand. She gained a lot ofweight and cannot function at home and we felt she was uremic, to requiredialysis treatment.OBTAINED FROM MEDICAL CHARTINGDate of Admission: 02/13/2018 2:26:00 PMRehabilitation Precautions/Restrictions:s tandard precautions, fall risk [facility] PATIENT NAME: SANDY BHATTI [id number] [facility] [address] [facility] REC #: [id number], [place] [address] DATE: 02/13/18ERVICE DATE: 02/16/18Physical Therapy Assessment Report ATTENDING PHY: Hao Nunez MDSUBJECTIVEPrior Level of Functioning:Indoor Mobility: Patient completed the activities by him/herself, with orwithout an assistive device, with no assistance from a helper.Stairs: Patient completed the activities by him/herself, with or without anassistive device, with no assistance from a helper.Pt reports she ambulates with no assistive device typically, but will use WW ifneeded. Pt independent with bathing and dressing. Pt's cooks andcleans. Pt's sister plans to come stay with her initially.Prior Device Use:[id number]. Prior DeviceNone of Above YesPatient/Caregiver Goals: Patient's functional goals: go homePain: Patient currently without complaints of pain.Home Environment: Patient lives with (works, no 27/03) , who is able toassist patient at discharge. Patient lives in a single family home. Home is twolevels. Patient is not required to manage stairs within the home. First floorfull bathroom setup available. No stairs to enter the home. There is no rampavailable to enter home.Equipment Owned: WW, walk in shower, grab bars in shower, elevated toilet seatSocial History: Marital Status: MChildren: 1[place] Status: disabilityRecreational Activities/Hobbies: facebook, gamesOBJECTIVECognitive ScreenResponsiveness: Alert.Orientation: Oriented to person, place, time, and situation.Following Commands: Patient is able to follow 3-step commands.Range of MotionUpper Extremity: Grossly within functional limitsLower Extremity: Grossly within functional limitsStrengthUpper Extremity: Grossly within functional limitsLower Extremity: Grossly within functional limitsTone/Spasticity: No relevant impairments.Sensation: Grossly intact.Balance: Independent and within functional limits.Therapeutic/Functio nal Activities: [facility] PATIENT NAME: SANDY BHATTI [id number] [address] [facility] MEDICAL REC #: [id number], [place] [address] DATE: 02/13/18ERVICE DATE: 02/16/18Physical Therapy Assessment Report ATTENDING PHY: Hao Nunez Mobility: Not assessed.Transfers: Patient transferred sit to/from stand with modifiedindependence. Patient used the following equipment: Arms of chair. Pt deniesdizziness upon initial standingLocomotion/Gait/Am bulation: Patient was independent withgait/ambulation for 200' . No assistive devices were required. Pt amb withreciprocal gait pattern with good step length and dick. Pt demonstrates noLOB or instability with good safety. Pt reports ambulation matches baselinelevel. Pt ambulates at 1 m/s.Gait Deviations: No gait deviations.Stairs: Not assessed.AM-PAC Basic Mobility:Turning Over in Bed: No difficultySitting/Standing Chair with Arms: No difficultyLying on Back to Sitting on Side of Bed: No difficultyMoving To/From Bed to Chair: No help neededWalking in Hospital Room: No help neededClimbing 3-5 Steps with Railing: No help neededRaw Score = 24 , AM-PAC t-Scale Score = 61.14 and G-Code Modifier = CHVital Signs:Vitals:Oxygen Saturation: 97 % post amb on room airInterventions: Evaluation LOW Complexity No treatment provided today.Pain Reassessment: No pain at onset or during treatment, which does not warrantreassessment.Educat ion:The patient's preferred learning method is: Explanation, DemonstrationBarriers to Learning: No barriersLearning Needs: Precautions.Plan of care.Rehabilitation techniques and procedures.Education Provided: Precautions. Plan of care. Rehab techniques and procedures.purpose of PT evaluationAudience: Patient., Significant other.Mode: Explanation. Demonstration.Response: Applied knowledge. Verbalized understanding. Demonstrated skill.ASSESSMENTProblem List: NoneStrengths: Activities of Daily Living, Transfers, Independent premorbidfunction, Social/family support, Activity tolerance, Home safety, Upperextremity function, Strength, Cognition, Vision, BalanceRehabilitation Potential: Not applicableMotivation/Commi tment to Therapy: Not applicable. [facility] PATIENT NAME: SANDY BHATTI [id number] [facility] [address] [facility] MEDICAL REC #: [id number], [place] [address] DATE: 02/13/18ERVICE DATE: 02/16/18Physical Therapy Assessment Report ATTENDING PHY: Asfoura,Jehad Y MDResponse to Evaluation: Pt demonstrates baseline abilities that are safe andstable with no need for skilled PT intervention. Pt educated of plan to D/C PTwith good pt verbal agreement and understanding. Pt educated to notifyphysician/nursing if changes occur with functional mobility. AM-PAC 24 shows ptsafe for homegoingActivity/Particip ation Problem List and Goals:Functional Impairment: Mobility: Walking and Moving Around.Modifier: R3819-AH (0% impaired, limited or restricted)Goal: Pt to ambulate independent 100' no assistive device to ensure safety upondischargeGoal Modifier: P7685-HH (0% impaired, limited or restricted)Discharge Status for Mobility: Walking and Moving Around: ResolvedFunctional Impairment Discharge Modifier: [id number]-TS (0% impaired, limited orrestricted)Pt amb independent 200' with good safety and sequencingTreatment Goals: Not applicable.PLANTreatment Frequency, Duration and Interventions: Physical Therapy services arediscontinued at this time secondary to: No need for skilled therapy interventionat this time. Patient is independent (able to return demonstrate) home exerciseprogram.Recommende d Physical Therapy Follow Up: Upon acute care discharge, the followingis currently recommended: No further careRecommended Equipment: None. No needs .Recommended Consults: None currently.Development of Plan of Care: Patient participated in plan of care developmenttoday.If there are any questions regarding this service, please contact the AcuteTherapy Department at extension [phone] of Patient at End of Therapy Session: In chair, call light within reachServices:Total Billed: 0 minutes (Timed: 0, Untimed: 0)0.00 Untimed: [95974] PT-EVALUATION LOW COMPLEXITY0.00 Untimed: [] PT Evaluation ORDER [facility] PATIENT NAME: SANDY BHATTI [id number] [facility] [address] [facility] MEDICAL REC #: [id number], [place] [address] DATE: 02/13/18ERVICE DATE: 02/16/18Physical Therapy Assessment Report ATTENDING PHY: Hao Nunez MD0.00 Untimed: [G8978] PT-Mobility: Walking and Moving Around-CH0.00 Untimed: [G8979] II-Yhve-Epvhtezq: Walking and Moving Around-CH0.00 Untimed: [G8980] PT-DC:Mobility: Walking and Moving Around-CHSigned by: Juana Tony, 02/16/2018 15:04:39 [facility] PATIENT NAME: SANDY BHATTI Dr. MEDICAL REC #: [id number], [place] [address] DATE: 02/13/18ERVICE DATE: 02/16/18Physical Therapy Assessment Report ATTENDING PHY: Hao Nunez MD [facility] 02-16-2018 Protein mass conc [facility] PTPN Physical TherapyInpa tient Missed Visit NoteAttempted to visit patient for therapy, but was unable for the followingreasons: Patient having or awaiting dialysis.Return Plan: Will return as soon as possible for another attempt.If there are any questions regarding this service, please contact the AcuteTherapy Department at extension [phone] by: Juana Tony, 02/16/2018 10:40:36 [facility] PATIENT NAME: SANDY BHATTI Dr. MEDICAL REC #: [id number], [place] [address] DATE: 02/13/18ERVICE DATE: 02/16/18Physical Therapy Progress Note ATTENDING PHY: Hao Nunez MD [facility] BMPon 02-15-2018 Anion gap 3 molar conc 11 mmol/L Normal 5-16 [facility] Comment on above: Order Comment: Campu s: M Performed By: #### L 500.46980, L500.12939 ####[facility] WEFBAOICRM4870 [place], [place] [address]Zq# [phone] Calcium mass conc 7.9 mg/dL Low 8.5-10.1 [facility] Comment on above: Order Comment: Campu s: M Performed By: #### L 500.68328, L500.26921 ####[facility] [id number] [place] [address]Nf# [phone] Chloride molar conc 106 mmol/L Normal 98-107 [facility] Comment on above: Order Comment: Campu s: M Performed By: #### L 500.77423, L500.68497 ####[facility] [id number] [place], [place] [address]Bs# [phone] CO2 molar conc 23 mmol/L Normal 21-32 [facility] Comment on above: Order Comment: Campu s: M Performed By: #### L 500.96402, L500.06256 ####[facility] IBXIPZFOLO9876 [place], [place] [address]Ur# [phone] Creatinine mass conc 3.870 mg/dL High 0.510-0.950 [facility] Comment on above: Order Comment: Campu s: M Result Comment: Bea ents receiving either N-Acetylcysteine (NAC) orMetamizole prior to venipuncture, may have falsely depressedresults. Performed By: #### L 500.59424, L500.92360 ####[facility] OSVGGRNIFE2467 [place], [place] [address]Ed# [phone] Glucose mass conc 232 mg/dL High 70-100 [facility] Comment on above: Order Comment: Campu s: M Result Comment: 70-1 00- Normal Fasting; 100-125 Impaired Fasting; greaterthan 126 on more than one result- Diabetes. ADA guidelines.Results may be falsely elevated after the administration ofSulfapyridine.Results may be falsely depressed after the administration ofSulfasalazine. Performed By: #### L 500.51725, L500.76433 ####[facility] JLOHFGSTYH9093 [place], [place] [address]Md# [phone] Potassium molar conc 4.3 mmol/L Normal 3.5-5.1 [facility] Comment on above: Order Comment: Campu s: M Performed By: #### L 500.15628, L500.75426 ####[address] [address]Bl# [phone] Sodium molar conc 140 mmol/L Normal 136-145 [facility] Comment on above: Order Comment: Campu s: M Performed By: #### L 500.46466, L500.56722 ####[facility] GM[address]ZVZGY[address] [place] [address]Nt# [phone] Urea nitrogen mass conc 31 mg/dL High 7-26 [facility] Comment on above: Order Comment: Campu s: M Performed By: #### L 500.69775, L500.77662 ####[facility] [id number] [place] [address]Tk# [phone] Urea nitrogen/Creatinine mass ratio 8 mg/mg Low 15-24 [facility] Comment on above: Order Comment: Campu s: M Performed By: #### L 500.13820, L500.91730 ####[facility] [id number] [place] [address]Fz# [phone] CBC W/DIFFon 02-15-2018 BASO ABS 0.00 K/CU MM Normal 0-0.2 [facility] Comment on above: Order Comment: Campu s: M Performed By: #### L 200.71349 ####[facility] RRGYXHNBVQ6415 [place], [place] [address]Gl# [phone] Basophils/100 WBC Auto (Bld) 0.9 % Normal 0-2 [facility] Comment on above: Order Comment: Campu s: M Performed By: #### L 200.66890 ####[facility] [id number] [place] [address]Qi# [phone] EOS ABS 0.10 K/CU MM Normal 0-0.5 [facility] Comment on above: Order Comment: Campu s: M Performed By: #### L 200.31460 ####[place] [address]Ph# [phone] Eosinophils/100 WBC Auto (Bld) 2.1 % Normal 0-5 [facility] Comment on above: Order Comment: Campu s: M Performed By: #### L 200.62158 ####[facility] [id number] [place], [place] [address]Ph# [phone] Erythrocyte distribution width Auto Ratio (RBC) 13.1 % Normal 11-14.5 [facility] Comment on above: Order Comment: Campu s: M Performed By: #### L 200.80830 ####[facility] [id number] [place] [address]Zy# [phone] Hematocrit Auto Volume Fraction (Bld) 30.1 % Low 35.0-47.0 [facility] Comment on above: Order Comment: Campu s: M Performed By: #### L 200.44863 ####[facility] [id number] [place] [address]Ni# [phone] Hemoglobin mass conc (Bld) 10.2 g/dL Low 11.5-15.5 [facility] Comment on above: Order Comment: Campu s: M Performed By: #### L 200.95130 ####[facility] ZCSLSPQBHE[address] [place], [place] [address]Ph# [phone] IMMATR GRAN ABS 0.00 K/CU MM Normal Less than 2 [facility] Comment on above: Order Comment: Campu s: M Performed By: #### L 200.46226 ####[facility] XIQQDZLSHS2510 [place], [place] [address]Ne# [phone] IMMATURE GRAN % 0.5 % Normal Less than 2 [facility] Comment on above: Order Comment: Campu s: M Performed By: #### L 200.73464 ####[facility] ZWUYFKMRCM9[address] [place], [place] [address]Ph# [phone] Lymphocytes Auto #/vol (Bld) 1.20 K/CU MM Normal 0.9-4.4 [facility] Comment on above: Order Comment: Campu s: M Performed By: #### L 200.87211 ####[place] [address]Ph# [phone] Lymphocytes/100 WBC Auto (Bld) 27.9 % Normal 20-40 [facility] Comment on above: Order Comment: Campu s: M Performed By: #### L 200.25478 ####[facility] [id number] [place], [place] [address]Ph# [phone] MCHC Auto mass conc (RBC) 33.9 g/dL Normal 32.0-36.0 [facility] Comment on above: Order Comment: Campu s: M Performed By: #### L 200.38749 ####[facility] NWOILFADTJ2237[address] [place], [place] [address]Ph# [phone] MCV Auto Entitic volume (RBC) 85.3 fL Normal 80.0-99.0 [facility] Comment on above: Order Comment: Campu s: M Performed By: #### L 200.79172 ####[facility] [id number] [place] [address]Vg# [phone] MONO ABS 0.40 K/CU MM Normal 0.1-1.1 [facility] Comment on above: Order Comment: Campu s: M Performed By: #### L 200.27384 ####[facility] LZUHNFUROB2009 [place], [place] [address]Sx# [phone] Monocytes/100 WBC Auto (Bld) 8.8 % Normal 2-10 [facility] Comment on above: Order Comment: Campu s: M Performed By: #### L 200.86603 ####[facility] [id number] [place], [place] [address]Ph# [phone] NEUTROPHIL ABS 2.60 K/CU MM Normal 2.0-8.3 [facility] Comment on above: Order Comment: Campu s: M Performed By: #### L 200.66737 ####[place] [address]Ph# [phone] Neutrophils/100 WBC Auto (Bld) 59.8 % Normal 45-75 [facility] Comment on above: Order Comment: Campu s: M Performed By: #### L 200.01059 ####[facility] VFJWVSBJZZ5459[address] [place], [place] [address]Ph# [phone] Nucleated RBC/100 WBC Ratio (Bld) 0.0 % Normal Less than 1 [facility] Comment on above: Order Comment: Campu s: M Performed By: #### L 200.07005 ####[facility] YRFQFXUOCH35[address] [place], [place] [address]Ph# [phone] Platelet mean volume Auto Entitic volume (Bld) 9.4 fL Normal 9.4-12.4 [facility] Comment on above: Order Comment: Campu s: M Performed By: #### L 200.33498 ####[facility] RMBXEDIXOP[address]160[address] [place], [place] [address]Ph# [phone] Platelets Auto #/vol (Bld) 106 K/CU MM Low 150-450 [facility] Comment on above: Order Comment: Campu s: M Performed By: #### L 200.26546 ####[facility] [id number] [place], [place] [address]Ph# [phone] RBC Auto #/vol (Bld) 3.53 M/CU MM Low 3.90-5.30 [facility] [place] Comment on above: Order Comment: Campu s: M Performed By: #### L 200.15576 ####[facility] FAOGUMKVTV5763 [place], [place] [address]Wr# [phone] WBC Auto #/vol (Bld) 4.3 K/CU MM Low 4.5-11.0 [facility] Comment on above: Order Comment: Campu s: M Performed By: #### L 200.85020 ####[facility] [id number] [place] [address]Ca# [phone] GFR ESTon 02-15-2018 IF AMER 15 ML/MIN Normal [facility] Comment on above: Order Comment: Campu s: M Performed By: #### L 500.08382, L500.14352 ####[facility] ZTUQHDUTCZ[address] [place] [address]Zb# [phone] IF non-AFR AMER 12 ML/MIN [facility] Comment on above: Order Comment: Campu s: M Performed By: #### L 500.52806, L500.47860 ####[facility] YWBADPRLVU3795 [place], [place] [address]Ad# [phone] GLUCOSE METERon 02-15-2018 Glucose mass conc 198 mg/dL High 85-125 [facility] Glucose mass conc 137 mg/dL High 85-125 [facility] Glucose mass conc 281 mg/dL High 85-125 [facility] 02-14-2018 FERR 164.5 NG/ML Normal 8.0-307.0 [facility] Comment on above: Order Comment: Campu s: M Performed By: #### L 500.31716, L500.07569 ####[facility] LGHIWBLTOF[address] [place] [address]Om# [phone] GLUCOSE METERon 02-14-2018 Glucose mass conc 144 mg/dL High 85-125 [facility] Glucose mass conc 124 mg/dL Normal 85-125 [facility] Glucose mass conc 115 mg/dL Normal 85-125 [facility] Glucose mass conc 255 mg/dL High 85-125 [facility] IRON PANELon 02-14-2018 Iron mass conc 99 ug/dL Normal 50-170 [facility] Comment on above: Order Comment: Nenita s: Chris Result Comment: Bea ents treated with metal-binding drugs (e.g.deferoxamine)may have depressed iron values, as chelated iron may notproperly react in the Siemens iron assay. Performed By: #### L 500.23153, L500.06910 ####[facility] BGIYLFJGIH5602 [place], [place] [address]Qf# [phone] IRON SAT 34 % Normal 22-44 [facility] Comment on above: Order Comment: Nenita s: Chris Performed By: #### L 500.66023, L500.46955 ####[facility] YPWWSYBPLT4898 [place], [place] [address]Nn# [phone] TIBC 294 UG/DL Normal 221-481 [facility] Comment on above: Order Comment: Nenita munoz: Chris Performed By: #### L 500.61229, L500.42824 ####[facility] COSSMZHNIH0913 [place], [place] [address]Hc# [phone] VLARon 02-14-2018 NON-INVASIVE ARTERIAL REPORT Normal [facility] VLAR VASCULAR MEDSTREAMIN G REPORT --------Patient: SANDY BHATTI [id number] Phy:MR: [id number] for Visit: ESRD,START DIALYSIS AND ANASARCADate of Service 02/14/18Reading Physician: Cole Thomson MDLeft:The radiocephalic fistula was evaluated with color and Doppler. Thefistula is patent with a slight increase in velocity in the proximalportion of 533 cm/sec. The size of the fistula is 3.5 , 3.0 and andat the outflow 4 mm. The flow volume is 418 cc/min. The radial ispatent as well as the axillary, and subclavian arteries.Conclusions:Paten t left radiocephalic fistula. Slight increase in velocity in theproximal segment of the fistula of 533 cm/sec. The radial artery ispatent.Flow volume is 418 cc/minPatent radial, brachial, axillary, and subclavian arteries.Fistula measures 3 to 3.6 mm and outflow is 4 mm.CC:Hao Nunez MDAbbreviated Final Report. Full Report is available via link to [employer] under [facility] Image Viewer. [facility] PATIENT NAME: SANDY BHATTI [facility] [address] [facility] MEDICAL REC #: [id number], [place] [address] DATE: 02/13/18DISCHARGE DATE:NON-INVASIVE ARTERIAL REPORT ATTENDING PHY: Hao Nunez MDElectronically Signed by: Cole Thomson MD Esign Date: 02/15/18 Normal [facility] BMPon 02-13-2018 Anion gap 3 molar conc 11 mmol/L Normal 5-16 [facility] Comment on above: Order Comment: Campu s: M Performed By: #### L 500.77005, L500.01416 ####[facility] [id number] [place], [place] [address]Ec# [phone] Calcium mass conc 8.3 mg/dL Low 8.5-10.1 [facility] Comment on above: Order Comment: Calebu s: M Performed By: #### L 500.87411, L500.79479 ####[facility] ZPJMAEENRL9695 [place], [place] [address]Gs# [phone] Chloride molar conc 110 mmol/L High 98-107 [facility] Comment on above: Order Comment: Calebu s: M Performed By: #### L 500.73504, L500.84338 ####[facility] WKXYEOQVAH9942 [place], [place] [address]Nz# [phone] CO2 molar conc 21 mmol/L Normal 21-32 [facility] Comment on above: Order Comment: Calebu s: M Performed By: #### L 500.62193, L5.49031 ####[facility] NLZWYWBJTL2678 [place], [place] [address]Jj# [phone] Creatinine mass conc 4.600 mg/dL High 0.510-0.950 [facility] Comment on above: Order Comment: Calebu s: M Result Comment: Bea ents receiving either N-Acetylcysteine (NAC) orMetamizole prior to venipuncture, may have falsely depressedresults. Performed By: #### L 500.30106, L5.97666 ####[facility] CQMKILXGRJ4910 [place], [place] [address]Uw# [phone] Glucose mass conc 220 mg/dL High 70-100 [facility] Comment on above: Order Comment: Calebu s: M Result Comment: 70-1 00- Normal Fasting; 100-125 Impaired Fasting; greaterthan 126 on more than one result- Diabetes. ADA guidelines.Results may be falsely elevated after the administration ofSulfapyridine.Results may be falsely depressed after the administration ofSulfasalazine. Performed By: #### L 500.79871, L500.07631 ####[facility] CLKTLGEWGO9926 [place], [place] [address]Fs# [phone] Potassium molar conc 5.0 mmol/L Normal 3.5-5.1 [facility] Comment on above: Order Comment: Calebu s: M Performed By: #### L 500.09973, L500.66352 ####[facility] CFFVIHEKNF3423 [place], [place] [address]Nt# [phone] Sodium molar conc 142 mmol/L Normal 136-145 [facility] Comment on above: Order Comment: Campu s: M Performed By: #### L 500.53171, L500.58576 ####[facility] LFSPVACYEX[address] [place] [address]Vd# [phone] Urea nitrogen mass conc 49 mg/dL High 7-26 [facility] Comment on above: Order Comment: Campu s: M Performed By: #### L 500.01559, L500.54363 ####[address] [address]Rt# [phone] Urea nitrogen/Creatinine mass ratio 11 mg/mg Low 15-24 [facility] Comment on above: Order Comment: Campu s: M Performed By: #### L 500.05586, L500.87472 ####[address] [address]Wk# [phone] CBC W/DIFFon 02-13-2018 BASO ABS 0.10 K/CU MM Normal 0-0.2 [facility] Comment on above: Order Comment: Campu s: M Performed By: #### L 500.87571, L500.39507 ####[facility] IQYVSLLDOV[address] [place] [address]Rj# [phone] Basophils/100 WBC Auto (Bld) 0.7 % Normal 0-2 [facility] Comment on above: Order Comment: Campu s: M Performed By: #### L 500.27233, L500.04716 ####[facility] [id number] [place] [address]Tp# [phone] EOS ABS 0.10 K/CU MM Normal 0-0.5 [facility] Comment on above: Order Comment: Campu s: M Performed By: #### L 500.23330, L500.28481 ####[facility] MJEJYFYKKQ[address] [place] [address]Ki# [phone] Eosinophils/100 WBC Auto (Bld) 1.4 % Normal 0-5 [facility] Comment on above: Order Comment: Campu s: M Performed By: #### L 500.26836, L500.11927 ####[address] [address]Zu# [phone] Erythrocyte distribution width Auto Ratio (RBC) 13.4 % Normal 11-14.5 [facility] Comment on above: Order Comment: Campu s: M Performed By: #### L 500.26242, L500.18710 ####[place] [address]Ph# [phone] Hematocrit Auto Volume Fraction (Bld) 34.6 % Low 35.0-47.0 [facility] Comment on above: Order Comment: Campu s: M Performed By: #### L 500.15876, L500.21133 ####[address] [address]Mc# [phone] Hemoglobin mass conc (Bld) 11.1 g/dL Low 11.5-15.5 [facility] Comment on above: Order Comment: Campu s: M Performed By: #### L 500.72411, L500.17808 ####[place] [address]Ph# [phone] IMMATR GRAN ABS 0.00 K/CU MM Normal Less than 2 [facility] Comment on above: Order Comment: Campu s: M Performed By: #### L 500.96163, L500.15170 ####[facility] [id number] [place] [address]Hd# [phone] IMMATURE GRAN % 0.1 % Normal Less than 2 [facility] Comment on above: Order Comment: Campu s: M Performed By: #### L 500.59743, L500.07783 ####[facility] [id number] [place] [address]Mz# [phone] Lymphocytes Auto #/vol (Bld) 0.90 K/CU MM Normal 0.9-4.4 [facility] Comment on above: Order Comment: Campu s: M Performed By: #### L 500.80847, L500.13781 ####[facility] RTBRRKKHHC[address] [place] [address]Ix# [phone] Lymphocytes/100 WBC Auto (Bld) 12.9 % Low 20-40 [facility] Comment on above: Order Comment: Campu s: M Performed By: #### L 500.58894, L500.50013 ####[facility] QFVAMMOLQM[address] [place], [place] [address]Ph# [phone] MCHC Auto mass conc (RBC) 32.1 g/dL Normal 32.0-36.0 [facility] Comment on above: Order Comment: Campu s: M Performed By: #### L 500.82220, L500.57935 ####[address] [address]Fj# [phone] MCV Auto Entitic volume (RBC) 87.2 fL Normal 80.0-99.0 [facility] Comment on above: Order Comment: Campu s: M Performed By: #### L 500.34919, L500.16171 ####[place] [address]Ph# [phone] MONO ABS 0.50 K/CU MM Normal 0.1-1.1 [facility] Comment on above: Order Comment: Campu s: M Performed By: #### L 500.01760, L500.48166 ####[facility] [id number] [place] [address]Ta# [phone] Monocytes/100 WBC Auto (Bld) 7.2 % Normal 2-10 [facility] Comment on above: Order Comment: Campu s: M Performed By: #### L 500.78024, L500.43129 ####[facility] DEAUGWKYFZ[address] [place] [address]Qp# [phone] NEUTROPHIL ABS 5.50 K/CU MM Normal 2.0-8.3 [facility] Comment on above: Order Comment: Campu s: M Performed By: #### L 500.65519, L500.81046 ####[facility] [id number] [place] [address]Gt# [phone] Neutrophils/100 WBC Auto (Bld) 77.7 % High 45-75 [facility] Comment on above: Order Comment: Campu s: M Performed By: #### L 500.38249, L500.73980 ####[place] [address]Ph# [phone] Nucleated RBC/100 WBC Ratio (Bld) 0.6 % Normal Less than 1 [facility] Comment on above: Order Comment: Campu s: M Performed By: #### L 500.32625, L500.76864 ####[address] [address]Du# [phone] Platelet mean volume Auto Entitic volume (Bld) 9.4 fL Normal 9.4-12.4 [facility] Comment on above: Order Comment: Campu s: M Performed By: #### L 500.55015, L500.98472 ####[place] [address]Ph# [phone] Platelets Auto #/vol (Bld) 183 K/CU MM Normal 150-450 [facility] Comment on above: Order Comment: Campu s: M Performed By: #### L 500.12643, L500.20860 ####[facility] [id number] [place] [address]Fa# [phone] RBC Auto #/vol (Bld) 3.97 M/CU MM Normal 3.90-5.30 [facility] Comment on above: Order Comment: Campu s: M Performed By: #### L 500.60159, L500.17676 ####[facility] [id number] [place] [address]Mi# [phone] WBC Auto #/vol (Bld) 7.1 K/CU MM Normal 4.5-11.0 [facility] Comment on above: Order Comment: Nenita s: M Performed By: #### L 500.34502, L500.74709 ####[facility] [id number] [place], [place] [address]Nl# [phone] CRon 02-13-2018 CR DATE OF CONSULTATION : 02/14/2018REASON FOR CONSULTATION: Fistula maturation.HISTORY OF PRESENT ILLNESS: This 53-year-old white female with chronic renal failureactually was admitted for worsening renal failure requiring now hemodialysis.Patient was seen in September where she had a fistula placed, radiocephalic, had afollowup fistulogram with maturation at end of December but failed to show up for 3visits. Apparently, she was quite ill out in [place], eventually made her way toDr. Nunez's office, who felt she needed to be admitted and started on dialysis. Onexamination, her fistula appeared to be maturing slowly, so we were asked to see thepatient.PAST MEDICAL HISTORY: As above.CURRENT MEDICATIONS: Reviewed.ALLERGIES: PENICILLINS, CODEINE, and LATEX.REVIEW OF SYSTEMS: Some overall weakness but feels better since she got dialysis.No shortness of breath, chest pain, fever, or chills. No arm pain.PHYSICAL EXAMINATION:General: This is an elderly white female, alert, comfortable, in no distress.VITAL SIGNS: Temperature 98, pulse is 69, respirations 20, blood pressure 188/89.Heart: Regular rate and rhythm.Abdomen: Slightly obese but soft.Extremities: Reveal postsurgical incision, left radiocephalic area, well healed.She has a palpable thrill through the fistula, but it is diminutive. Radial andbrachial pulses are intact.IMPRESSION: Left radiocephalic arteriovenous fistula, status post 6 months'formation, non-maturation. Underwent fistulogram, had quite diminutive vessels; atthe fistulogram at the end of December, we made significant improvement, but I recommendfistula duplex, but anticipate fistulogram with repeat maturation depending on thoseresults. CIPRIANO Luna/[id number]: 02/14/2018 17:31DT: 02/14/2018 18:10SSI File#: [id number] [facility] PATIENT NAME: SANDY BHATTI [facility] [address] MEDICAL REC #: [id number], [place] [address] DATE: 02/13/18DISCHAR DATE:CONSULTATION REPORT ATTENDING PHY: Hao Nunez #: [id number]/Reviewed by02/16/18 0648 PREJE [facility] PATIENT NAME: SANDY BHATTI [facility] [address] MEDICAL REC #: [id number], [place] [address] DATE: 02/13/18DISCHARGE DATE:CONSULTATION REPORT ATTENDING PHY: Hao Nunez MD [facility] DSon 02-13-2018 DS DATE OF ADMISSION: 02/13/2018DATE OF DISCHARGE: 02/16/2018REASON:1. End-stage renal disease.2. Hypertension.3. Nephrotic syndrome.4. Hypothyroidism.5. Insulin-dependent diabetes.6. Hyperlipidemia.CONDITION: Stable.DESTINATION: Home.FOLLOWUP: In [place] [facility]ialysis unit.PROCEDURE: Temporary dialysis catheter, dialysis treatment.DIET: 1800-calorie, ADA, 2-gram salt, 2-gram potassium and 1500 mL.TRANSIT CLERK: Héctor Herrera, MDMEDICATIONS:1. Folvite daily.2. PhosLo 2 after every meal.3. Lisinopril 20 twice daily.4. Insulin Novolog and Humalog 10 units 3 times daily.5. Lasix 80 twice daily.6. Clonidine 0.3 twice daily.7. Metoprolol 50 twice daily.8. Aspirin 81 mg daily.9. Tylenol p.r.n.10. Prozac 40 mg daily. That is to be on hold for now but could be started again.11. Synthroid 0.112 mg daily.In summary, a 53-year-old diabetic with the above complications, came to the officewith fabio. We know she has CKD stage 5, preparing her for dialysis. She has AVfistula created and intervened on it to be sure and ready. [facility] Catheter inserted in our vascular lab. Start dialysis, adjust hermedications carefully. She lost more than 12 pounds fluid. She feels better,stronger and arrangement to go back to [place] for dialysis treatment and lateron, follow that channel of combined kidney, pancreas transplant. Hao Nunez MD [facility] PATIENT NAME: SANDY BHATTI [id number] [facility] [address] [facility] REC #: [id number], [place] [address] DATE: 02/13/18DISCHARGE DATE: 02/16/18DISCHARGE SUMMARY ATTENDING PHY: Hao Nunez/[id number]: 02/16/2018 12:31DT: 02/17/2018 14:38SSI File#: [id number] #: [id number]/Reviewed by02/20/18 0844 ASFJE [facility] PATIENT NAME: SANDY BHATTI [facility] [address] MEDICAL REC #: [id number], [place] [address] DATE: 02/13/18DISCHARGE DATE: 02/16/18DISCHARGE SUMMARY ATTENDING PHY: Hao Nunez MD Normal [facility] GFR ESTon 02-13-2018 IF AMER 12 ML/MIN Normal [facility] Comment on above: Order Comment: Campu s: M Performed By: #### L 500.64607, L500.54889 ####[facility] [id number] [place], [place] [address]Wj# [phone] IF non-AFR AMER 10 ML/MIN [facility] Comment on above: Order Comment: Calebu s: M Performed By: #### L 500.13658, L500.87719 ####[facility] [id number] [place], [place] [address]Wu# [phone] GLUCOSE METERon 02-13-2018 Glucose mass conc 299 mg/dL High 85-125 [facility] Glucose mass conc 199 mg/dL High 85-125 [facility] HEP A IGM ABon 02-13-2018 HEP A IGM AB NONREACTIVE Normal NONREACTIVE [facility] Comment on above: Order Comment: Calebu s: M Result Comment: RESU LTS WERE OBTAINED WITH THE ADVIA MedikidzAUR XP HEPATITIS AIgM. VALUES OBTAINED WITH DIFFERENT MANUFACTURERS' ASSAYMETHODS MAY NOT BE USED INTERCHANGEABLY.These results may be falsely depressed in the presence ofBiotin concentrations above 500 ng/ml. Performed By: #### L 500.51413, L500.04176 ####[facility] [id number] [place], [place] [address]Jr# [phone] HEP B CORE IGMon 02-13-2018 HEP B CORE IGM NONREACTIVE Normal NONREACTIVE [facility] Comment on above: Order Comment: Nenita Perez Result Comment: RESU LTS WERE OBTAINED WITH THE ADVIA CENTAUR XP ANTI-HBC IGMEIA. VALUES OBTAINED WITH DIFFERENT MANUFACTURERS' ASSAYMETHODS MAY NOT BE USED INTERCHANGEABLY.These results may be falsely depressed in the presence ofBiotin concentrations above 250 ng/ml. Performed By: #### L 500.64349, L500.31891 ####[facility] [id number] [place], [place] [address]Ns# [phone] HEPATITIS C ABon 02-13-2018 HCV AB NONREACTIVE Normal NONREACTIVE [facility] Comment on above: Order Comment: Nenita Perez Result Comment: SCRE ENING TEST NEGATIVENONREACTIVE HCV ANTIBODY SCREEN IS CONSISTENT WITH NO HCVINFECTION, UNLESS RECENT INFECTION IS SUSPECTED OR OTHEREVIDENCE EXISTS TO INDICATE HCV INFECTION Performed By: #### L 500.93686, L500.63397 ####[facility] [id number] [place], [place] [address]Pl# [phone] HGB A1C GLYCOHBon 02-13-2018 Hemoglobin A1c/Hemoglobin.total mass fraction (Bld) 7.5 % High 4.3-6.0 [facility] Comment on above: Order Comment: Nenita Perez Performed By: #### L 500.72789, L500.84667 ####[facility] [id number] [place], [place] [address]Rr# [phone] HPon 02-13-2018 HP REASON FOR ADMISSION : CKD stage 5, end stage disease, uremia, anasarca.HISTORY: Mrs. Sandy Bhatti is a very pleasant 53-year-old lady, suffered frominsulin-dependent diabetes with complications of retinopathy, neuropathy,nephropathy, and finding some anasarca. I have been [facility], came to the office today with significant edema and anasarca,weakness and tiredness, cannot function. We have been preparing her for dialysistreatment. We had AV fistula created by Dr. Javier with Intervention, has not maturedyet, and after working on her to get on the transplant list [facility] to be [facility]. In the office she was weak,tired, cannot stand. She gained a lot of weight and cannot function at home and wefelt she was uremic, to require dialysis treatment.PAST MEDICAL HISTORY:1. Insulin-dependent diabetes with nephropathy, retinopathy, neuropathy.2. Coronary artery disease in the past, no intervention.3. Hypertension.4. Depression.5. Hyperlipidemia.6. Hypothyroidism.7. Anemia; does not require Procrit.ALLERGIES: PENICILLIN AND CODEINE.SOCIAL HISTORY: . Has 1 daughter. She smoked for 40 years but she quitabout 3 years ago.MEDICATIONS:1. Fluoxetine 40 mg 1 tablet daily.2. Synthroid 112 mcg daily.3. Atorvastatin 40 mg daily.4. Baby aspirin daily.5. NovoLog 10 units in the morning.6. Calcium 600 daily.7. Vitamin D3 daily.8. Amlodipine 10 mg once daily.9. Clonidine 0.3 every 12 hours.10. Multivitamins daily.11. Tresiba 40 units at bedtime.REVIEW OF SYSTEMS: As stated above. All her systems reviewed, 12.PHYSICAL EXAMINATION:General: Very pale-looking lady, anasarcic, unsteady. Cannot function at home.Short of breath. [facility] PATIENT NAME: SANDY BHATTI [id number] [facility] [address] MEDICAL REC #: [id number], [place] [address] DATE: 02/13/18DISCHARGE DATE:HISTORY and PHYSICAL ATTENDING HANS: Hao Nunez signs: Her weight is up to 173 pounds from a baseline 158. Blood vzedhgnr195/79, heart rate 67.HEENT: Pupils equally round and reactive to light and accommodation. Retinopathy byfundi.Neck: Full.Lungs: Decreased breath sounds bilaterally.Heart: Regular rhythm. Distended abdomen.Abdomen: Soft. Positive bowel sounds. Possible ascites.Extremities: 3+ edema. Her AV fistula in the left arm good thrill and bruit, butdoes not seem mature.Neurological: She has neuropathy in the hands and the feet. Unsteady on standing.LABORATORY DATA: Her last lab available to me, from January 14, 2018, showedelectrolytes 139, 4.0, 108, 20.2. BUN and creatinine 48, 4.3. GFR 11 mL/minute.Hemoglobin and hematocrit 11.1 and 32.3.ASSESSMENT:1. Chronic kidney disease stage 5, uremic symptoms.2. Anasarca with nephrotic syndrome.3. Hypertension.4. Coronary artery disease.5. Insulin-dependent diabetes with all complications.6. Depression.PLAN OF ACTION: Admit, proceed with dialysis treatment, control her volume.Readjust her medication and arrange for outpatient dialysis treatment and proceed toplace her on the active transplant list for possible kidney/pancreas transplant, andfollow along with you. _MED Arellano/[id number]: 02/13/2018 12:58DT: 02/13/2018 13:29SSI File#: [id number] #: [id number]/Reviewed by02/13/18 1529 ASFJE [facility] PATIENT NAME: SANDY BHATTI [facility] MEDICAL REC #: [id number], [place] [address] DATE: 02/13/18DISCHARGE DATE:HISTORY and PHYSICAL ATTENDING PHY: Hao Nunez MD [facility] LIPIDon 02-13-2018 Cholesterol in HDL mass conc 50 mg/dL Normal GREATER TN 40 [facility] Comment on above: Order Comment: Nenita munoz: Chris Result Comment: Bea ents receiving Metamizole prior to venipuncture, mayhave falsely depressed results. Performed By: #### L 500.87209, L500.52879 ####[facility] [id number] [place], [place] [address]Rr# [phone] Cholesterol in LDL mass conc 75 MG/DL Normal 0-129 [facility] Comment on above: Order Comment: Nenita Perez Result Comment: ___C HOLESTEROL/HDL RATIO RISK___ CHD RISK = Total CHOL LDL HDL (CHOL/HDL) ------Recommended <200 <130 >35 <3.4 Borderline 200-239 130-159 3.4-4.99 ----High >240 >160 >5.0 Performed By: #### L 500.89556, L500.40313 ####[facility] [id number] [place], [place] [address]Mz# [phone] Cholesterol mass conc 159 mg/dL Normal 0-199 [facility] Comment on above: Order Comment: Campu s: M Performed By: #### L 500.47289, L500.78742 ####[facility] [id number] [place], [place] [address]El# [phone] Triglyceride mass conc 173 mg/dL High 30-149 [facility] Comment on above: Order Comment: Campu s: M Result Comment: Bea ents receiving either N-Acetylcysteine (NAC) orMetamizole prior to venipuncture, may have falsely depressedresults. Performed By: #### L 500.21131, L500.58785 ####[facility] [id number] [place], [place] [address]Ul# [phone] LIVERon 02-13-2018 Albumin mass conc 2.9 g/dL Low 3.2-5.0 [facility] Comment on above: Order Comment: Campu s: M Performed By: #### L 500.44348, L500.46282 ####[facility] [id number] [place], [place] [address]Fl# [phone] Albumin/Globulin mass ratio 1.0 {ratio} Normal 0.8-2.0 [facility] Comment on above: Order Comment: Campu s: M Performed By: #### L 500.57498, L500.91119 ####[facility] [id number] [place], [place] [address]Sc# [phone] ALK PHOS 580 U/L High 45-117 [facility] Comment on above: Order Comment: Campu s: M Performed By: #### L 500.13956, L500.79555 ####[facility] [id number] [place], [place] [address]Qz# [phone] ALT enzyme act/vol 56 U/L Normal 13-61 [facility] Comment on above: Order Comment: Campu s: M Result Comment: RESU LTS MAY BE FALSELY DEPRESSED AFTER THE ADMINISTRATION OFSULFASALAZINE AND/OR SULFAPYRIDINE. Performed By: #### L 500.66517, L500.46070 ####[facility] [id number] [place], [place] [address]Xw# [phone] BILI DIRECT 0.35 MG/DL High 0.00-0.20 [facility] Comment on above: Order Comment: Campu s: M Performed By: #### L 500.21270, L500.12651 ####[facility] [id number] [place], [place] [address]Re# [phone] BILI TOTAL 0.6 MG/DL Normal 0.2-1.0 [facility] Comment on above: Order Comment: Campu s: M Performed By: #### L 500.07509, L500.02148 ####[facility] [id number] [place], [place] [address]Qr# [phone] Globulin Calculated mass conc (S) 2.9 g/dL Normal 2.2-4.2 [facility] Comment on above: Order Comment: Campu s: M Performed By: #### L 500.64794, L500.52468 ####[facility] [id number] [place] [address]Tn# [phone] Protein mass conc 5.8 g/dL Low 6.0-8.5 [facility] Comment on above: Order Comment: Campu s: M Performed By: #### L 500.98225, L500.75339 ####[facility] [id number] [place], [place] [address]Kk# [phone] SGOT (AST) 267 U/L High 8-34 [facility] Comment on above: Order Comment: Campu s: M Result Comment: RESU LTS MAY BE FALSELY DEPRESSED AFTER THE ADMINISTRATION OFSULFASALAZINE AND/OR SULFAPYRIDINE. Performed By: #### L 500.85259, L500.08840 ####[facility] [id number] [place] [address]Dr# [phone] ORon 02-13-2018 OPERATIVE REPORT Normal [facility] OR DATE OF SERVICE: 02/14/2018PREOPERATIVE DIAGNOSIS: Non-maturing arteriovenous fistula left radiocephalic.POSTOPERATIV E DIAGNOSIS: Non-maturing arteriovenous fistula left radiocephalic.OPERATION:1. Ultrasound-guided retrograde access left radiocephalic arteriovenous fistula.2. Antegrade access to left brachial artery with first order to take out placement.3. Angioplasty of left radial artery with 2.5-mm x 12-cm [place] balloon x2.4. Angioplasty of proximal anastomosis and proximal arteriovenous fistula with2.5-mm [place] balloon x1.5. Angioplasty of proximal arteriovenous fistula with 4-mm x 4-cm carotid balloonx2.SURGEON: Héctor Herrera M.D.ANESTHESIA: Local.COMPLICATIONS: None.FINDINGS: Diminutive radial artery. Stenosis of proximal anastomosis as well asproximal outflow of A-V fistula with good results status post angioplasty.DESCRIPTION OF PROCEDURE: The patient was brought to the operative suite where shewas placed in the supine position. She was placed on pulse oximetry and cardiacmonitor. Local anesthetic was infused. Gained access under ultrasound guidance tothe A-V fistula outflow in the upper forearm. A 4-Eritrean sheath was placed.Fistulogram through a catheter revealed the fistula itself was actually much betterthan the end of December study. However, the radial artery was quite diminutive andstenosis still at the anastomosis. Could not get retrograde access up to the radialartery from above so I did a counter access in the brachial artery usingultrasound-guided micropuncture technique. Cannulated the radial artery. Gainedaccess with an angled Journey wire retrograde up the fistula from the radial artery.Systemically heparinized the patient. Waited 5 minutes. Angioplasty of the radialartery to upsize it 2.5 x 12-cm guided balloon to 12 atmospheres with two 2-minuteinflations including the proximal anastomosis. It gave us great results andsignificant improvement in arterial inflow. Now angioplasty of the outflow with a 4x 4 [place] balloon to 12 atmospheres for two 2-minute inflations. It gave us areally nice result. I felt very confident about the results. Definitely maturity toimprove. Probably will need some more time to mature and may need a repeatfistulogram for balloon maturation, but at this point it made a significantimprovement. The sheath was removed. Pressure was held for hemostasis withoutincident. The patient tolerated the procedure well. [facility] PATIENT NAME: SANDY BHATTI [facility] MEDICAL REC #: [id number], [place] [address] DATE: 02/13/18DISCHARGE DATE:OPERATIVE REPORT ATTENDING PHY: Hao Nunez MD J CIPRIANO Christianson/[id number]: 02/14/2018 17:24DT: 02/14/2018 18:21SSI File#: [id number] #: [id number]/Reviewed by02/16/18 0648 PREJE [facility] PATIENT NAME: SANDY BHATTI [facility] MEDICAL REC #: [id number], [place] [address] DATE: 02/13/18DISCHARGE DATE:OPERATIVE REPORT ATTENDING PHY: Hao Nunez MD Normal [facility] PHOSon 02-13-2018 Phosphate mass conc 4.4 mg/dL Normal 2.5-4.9 [facility] Comment on above: Order Comment: Nenita munoz: Chris Performed By: #### L 500.86357, L500.85472 ####[facility] [id number] [place], [place] [address]Cn# [phone] PORTABLE CHESTon 02-13-2018 PORTABLE CHEST PORTABLE CHESTOrderi ng Physician: Hao Nunez MD02/13/2018 3:29 PMSINGLE PORTABLE UPRIGHT CHEST 1601 HOURSClinical Statement: Shortness of breathComparison: NoneFINDINGS: Central venous catheter is shown the tip is within thecaudal right atrium. Heart is mildly enlarged. There is a smallleft-sided effusion with associated airspace opacity. Pulmonaryvasculature is mildly congested centrally. There is no pneumothorax.Impression: Borderline to mild cardiomegaly. Mild central pulmonaryvenous congestion.Left retrocardiac airspace opacity and small effusion. ---- Electronic Signature on File ----Signed By: Kade Bautista [email or web address]: 02/13/2018 4:24 PMSigned: 02/13/2018 4:26 PM Reported By: KADE BAUTISTA M.D. Signed By: KADE BAUTISTA M.D. Normal [facility] PTH INTACTon 02-13-2018 PTH INTACT 379.2 PG/ML High 18.5-88.0 [facility] Comment on above: Order Comment: Campu s: M Performed By: #### L 500.47951, L500.65579 ####[facility] [id number] [place], [place] [address]Rq# [phone] CBCon 12-13-2017 Erythrocyte distribution width Auto Ratio (RBC) 13.2 % Normal 11-14.5 [facility] Comment on above: Order Comment: Campu s: M Performed By: #### L 500.24311, L500.12321 ####[facility] [id number] [place], [place] [address]In# [phone] Hematocrit Auto Volume Fraction (Bld) 33.7 % Low 35.0-47.0 [facility] Comment on above: Order Comment: Campu s: M Performed By: #### L 500.95855, L500.39648 ####[facility] [id number] [place], [place] [address]Bz# [phone] Hemoglobin mass conc (Bld) 10.9 g/dL Low 11.5-15.5 [facility] Comment on above: Order Comment: Campu s: M Performed By: #### L 500.36847, L500.67183 ####[facility] [id number] [place] [address]Es# [phone] MCHC Auto mass conc (RBC) 32.3 g/dL Normal 32.0-36.0 [facility] Comment on above: Order Comment: Campu s: M Performed By: #### L 500.81395, L500.30851 ####[place] [address]Ph# [phone] MCV Auto Entitic volume (RBC) 86.9 fL Normal 80.0-99.0 [facility] Comment on above: Order Comment: Campu s: M Performed By: #### L 500.43927, L500.23068 ####[facility] [id number] [place], [place] [address]Ph# [phone] Nucleated RBC/100 WBC Ratio (Bld) 0.0 % Normal Less than 1 [facility] Comment on above: Order Comment: Campu s: M Performed By: #### L 500.06847, L500.47968 ####[facility] [id number] [place], [place] [address]Ph# [phone] Platelet mean volume Auto Entitic volume (Bld) 9.2 fL Low 9.4-12.4 [facility] Comment on above: Order Comment: Campu s: M Performed By: #### L 500.08945, L500.37615 ####[facility] [id number] [place], [place] [address]Ph# [phone] Platelets Auto #/vol (Bld) 191 K/CU MM Normal 150-450 [facility] Comment on above: Order Comment: Campu s: M Performed By: #### L 500.17077, L500.21856 ####[facility] [id number] [place], [place] [address]Ke# [phone] RBC Auto #/vol (Bld) 3.88 M/CU MM Low 3.90-5.30 [facility] Comment on above: Order Comment: Campu s: M Performed By: #### L 500.86771, L500.53752 ####[facility] [id number] [place], [place] [address]Ma# [phone] WBC Auto #/vol (Bld) 6.8 K/CU MM Normal 4.5-11.0 [facility] Comment on above: Order Comment: Campu s: M Performed By: #### L 500.80655, L500.10492 ####[facility] [id number] [place] [address]Ea# [phone] GFR ESTon 12-13-2017 IF AMER 14 ML/MIN [facility] Comment on above: Order Comment: Campu s: M Performed By: #### L 500.88579, L500.35014 ####[facility] [id number] [place], [place] [address]Hy# [phone] IF non-AFR AMER 12 ML/MIN Normal [facility] Comment on above: Order Comment: Campu s: M Performed By: #### L 500.58347, L500.67488 ####[address] [address]Ko# [phone] ORon 12-13-2017 OPERATIVE REPORT Normal [facility] OR DATE OF SERVICE: 12/13/2017PREOPERATIVE DIAGNOSIS: Failing fistula, left upper extremity radiocephalic.POSTOPERATIV E DIAGNOSIS: Failing fistula, left upper extremity radiocephalic.OPERATION:1. Ultrasound guided retrograde access, left radiocephalic AV fistula.2. Ultrasound guided access to left brachial artery.3. Arteriogram, left upper extremity.4. Fistulogram, left upper extremity.5. Angioplasty, proximal AV fistula, left, with 2 mm [place] balloon x2.6. Angioplasty, proximal AV fistula, with 4 mm x 4 cm [place] balloon x3 and 4 mm x 2cm [place] balloon x3.7. Angioplasty of left radial artery with 2.5 mm x 15 cm [place] balloon x2.8. Angioplasty of proximal anastomosis and distal radial artery, left, with 3 mm x 6cm [place] balloon.COMPLICATIONS: None.ANESTHESIA: IV sedation, monitored care by Dr. Herrera, local anesthetic.FINDINGS: Subtotal occlusion, proximal AV fistula. Diminutive radial artery. Tightstenosis of the anastomosis and proximal fistula, successfully treated with antegradeand retrograde approach.PROCEDURE: Patient brought to the angiography suite where she was placed in supineposition, placed on pulse oximeter and cardiac monitoring, given IV sedation,fentanyl and Versed. The left arm was prepped and draped in standard fashion.Ultrasound guidance to gain access to the fistula outflow tract in the left forearmand the cephalic vein. A 4-Eritrean sheath was placed. Fistulogram through an angledGlide catheter revealed the subtotal occlusion of the proximal fistula with almost astring-like residual lumen to the artery and anastomosis. I was able to get pastthis with an 0.014 Journey wire, systemically heparinized the patient. Weangioplastied with the 2 mm balloon for a 2 minute inflation to gain some access andflow across the fistula but I could not get retrograde up the radial artery, despitea number of attempts with different wires, going from 0.014 to 0.035 system. At thispoint I gained access to the brachial artery with a single wire micropuncturetechnique and ultrasound guidance, exchanged out for an angled Glidewire and a4-Eritrean sheath. Glidewire was placed down the radial artery and attempts were madeat antegrade approach through the anastomosis retrograde. This was unsuccessful.The radial artery was quite diminutive. I supplemented heparinization during thecase, angioplastied the radial artery with a 2.5 x 15 cm [place] balloon to 12atmospheres for 2, 2-minute inflations. This gave us better inflow. I then upsizedfrom a retrograde approach from the fistula sheath to a 4 mm balloon, angioplastied [facility] PATIENT NAME: SANDY BHATTI Lizeth White MEDICAL REC #: [id number], [place] [address] DATE:DISCHARGE DATE:OPERATIVE REPORT ATTENDING PHY: Héctor Herrera proximal area. We finally got good flow across this into the fistula,angioplastied a total of actually 4 or 5 times with a 4 x 4 and a 4 x 2 Coyoteballoon. This gave us now flow, actually dramatic improvement. I was then able togo antegrade from the radial side through the anastomosis with an 0.018 Glidewire andthen exchanged out for a V14 wire, and then angioplastied the proximal anastomosisand distal radial artery with a 3 mm x 6 cm [place] balloon for 12 atmospheres, for 2minute inflation. This gave us a beautiful result, dramatic improvement of flow withno signs of complicating factors. At this point we had salvaged the fistula. Wewill let it mature the residual area. Sheath was pulled. Pressure was held byhemostasis at the brachial artery as well as the pursestring suture in the fistulawithout incident. The patient tolerated the procedure well. __CIPRIANO Luna/[id number]: 12/13/2017 11:01DT: 12/13/2017 11:35SSI File#: [id number] #: [id number]/Reviewed by12/18/17 2320 PREJE [facility] PATIENT NAME: SANDY BHATTI Lizeth White MEDICAL REC #: [id number], [place] [address] DATE:DISCHARGE DATE:OPERATIVE REPORT ATTENDING PHY: Héctor Herrera MD Normal [facility] RENALon 12-13-2017 Albumin mass conc 3.0 g/dL Low 3.2-5.0 [facility] Comment on above: Order Comment: Campu s: M Performed By: #### L 500.84648, L500.87534 ####[facility] [id number] [place], [place] [address]Yz# [phone] Anion gap 3 molar conc 9 mmol/L Normal 5-16 [facility] Comment on above: Order Comment: Campu s: M Performed By: #### L 500.43420, L500.64364 ####[facility] BOOYFDWPVA1506 [place], [place] [address]Na# [phone] Calcium mass conc 8.1 mg/dL Low 8.5-10.1 [facility] Comment on above: Order Comment: Campu s: M Performed By: #### L 500.85729, L500.69593 ####[facility] WRSXKGHAYV8932 [place], [place] [address]Gc# [phone] Chloride molar conc 109 mmol/L High 98-107 [facility] Comment on above: Order Comment: Campu s: M Performed By: #### L 500.15216, L500.95030 ####[facility] HAQQXIRMFA1762 [place], [place] [address]Cf# [phone] CO2 molar conc 21 mmol/L Normal 21-32 [facility] Comment on above: Order Comment: Campu s: M Performed By: #### L 500.01125, L500.83562 ####[facility] VGOKOQEBGI9446 [place], [place] [address]Sn# [phone] Creatinine mass conc 3.970 mg/dL High 0.510-0.950 [facility] Comment on above: Order Comment: Campu s: M Result Comment: Bea ents receiving either N-Acetylcysteine (NAC) orMetamizole prior to venipuncture, may have falsely depressedresults. Performed By: #### L 500.09944, L500.71723 ####[facility] IJKBSJODIS1224 [place], [place] [address]De# [phone] Glucose mass conc 327 mg/dL High 70-100 [facility] Comment on above: Order Comment: Campu s: M Result Comment: 70-1 00- Normal Fasting; 100-125 Impaired Fasting; greaterthan 126 on more than one result- Diabetes. ADA guidelines.Results may be falsely elevated after the administration ofSulfapyridine.Results may be falsely depressed after the administration ofSulfasalazine. Performed By: #### L 500.67539, L500.58359 ####[facility] VCBSDVHXIN2512 [place], [place] [address]Hg# [phone] Phosphate mass conc 4.9 mg/dL Normal 2.5-4.9 [facility] Comment on above: Order Comment: Campu s: M Performed By: #### L 500.50596, L500.77232 ####[facility] BRPJDMDZBT4272 [place], [place] [address]Ex# [phone] Potassium molar conc 5.2 mmol/L High 3.5-5.1 [facility] Comment on above: Order Comment: Campu s: M Performed By: #### L 500.52334, L500.75216 ####[facility] [address]JK[address] [place] [address]Wt# [phone] Sodium molar conc 139 mmol/L Normal 136-145 [facility] Comment on above: Order Comment: Campu s: M Performed By: #### L 500.77202, L500.00158 ####[facility] [id number] [place] [address]Fx# [phone] Urea nitrogen mass conc 44 mg/dL High 7-26 [facility] Comment on above: Order Comment: Campu s: M Performed By: #### L 500.14263, L500.41469 ####[facility] [id number] [place], [place] [address]Hn# [phone] Urea nitrogen/Creatinine mass ratio 11 mg/mg Low 15-24 [facility] Comment on above: Order Comment: Campu s: M Performed By: #### L 500.73513, L500.02990 ####[facility] QQKOUPLSEI3886 [place], [place] [address]Vb# [phone] CBCon 12-05-2017 Erythrocyte distribution width Auto Ratio (RBC) 13.0 % Normal 11-14.5 [facility] Comment on above: Order Comment: Campu s: M Performed By: #### L 200.39982 ####[address] [address]Bw# [phone] Hematocrit Auto Volume Fraction (Bld) 34.0 % Low 35.0-47.0 [facility] Comment on above: Order Comment: Campu s: M Performed By: #### L 200.80037 ####[facility] [id number] [place] [address]Vf# [phone] Hemoglobin mass conc (Bld) 10.8 g/dL Low 11.5-15.5 [facility] Comment on above: Order Comment: Campu s: M Performed By: #### L 200.62687 ####[facility] [id number] [place] [address]Wi# [phone] MCHC Auto mass conc (RBC) 31.8 g/dL Low 32.0-36.0 [facility] Comment on above: Order Comment: Campu s: M Performed By: #### L 200.52594 ####[facility] TSKVUULPFE[address] [place] [address]Az# [phone] MCV Auto Entitic volume (RBC) 86.5 fL Normal 80.0-99.0 [facility] Comment on above: Order Comment: Campu s: M Performed By: #### L 200.46972 ####[facility] EOFCTVAVAP[address] [place] [address]Sr# [phone] Nucleated RBC/100 WBC Ratio (Bld) 0.3 % Normal Less than 1 [facility] Comment on above: Order Comment: Campu s: M Performed By: #### L 200.68696 ####[facility] KAVQLCWCYV[address] [place] [address]Ip# [phone] Platelet mean volume Auto Entitic volume (Bld) 9.3 fL Low 9.4-12.4 [facility] Comment on above: Order Comment: Campu s: M Performed By: #### L 200.54797 ####[address] [address]Oo# [phone] Platelets Auto #/vol (Bld) 184 K/CU MM Normal 150-450 [facility] Comment on above: Order Comment: Campu s: M Performed By: #### L 200.29908 ####[address] [address]Qx# [phone] RBC Auto #/vol (Bld) 3.93 M/CU MM Normal 3.90-5.30 [facility] Comment on above: Order Comment: Campu s: M Performed By: #### L 200.20207 ####[facility] [id number] [place] [address]Yg# [phone] WBC Auto #/vol (Bld) 6.0 K/CU MM Normal 4.5-11.0 [facility] Comment on above: Order Comment: Campu s: M Performed By: #### L 200.77377 ####[facility] [id number] [place] [address]Ih# [phone] GFR ESTon 12-05-2017 IF AMER 14 ML/MIN [facility] Comment on above: Order Comment: Campu s: M Performed By: #### L 500.32688, L500.62897 ####[facility] PLRMSTJPNH[address] [place] [address]Tu# [phone] IF non-AFR AMER 12 ML/MIN Normal [facility] Comment on above: Order Comment: Campu s: M Performed By: #### L 500.29756, L500.42059 ####[facility] EBISNRURGC0367 [place], [place] [address]Mf# [phone] RENALon 12-05-2017 Albumin mass conc 2.9 g/dL Low 3.2-5.0 [facility] Comment on above: Order Comment: Campu s: M Performed By: #### L 500.84164, L500.95281 ####[facility] KUPUXHWUVH12[address] [place] [address]Oe# [phone] Anion gap 3 molar conc 11 mmol/L Normal 5-16 [facility] Comment on above: Order Comment: Campu s: M Performed By: #### L 500.30496, L500.17440 ####[facility] XNFOGEZZYT1040 [place], [place] [address]Ja# [phone] Calcium mass conc 8.1 mg/dL Low 8.5-10.1 [facility] Comment on above: Order Comment: Campu s: M Performed By: #### L 500.71320, L500.68551 ####[facility] NJWENJDAIB5016 [place], [place] [address]Oy# [phone] Chloride molar conc 109 mmol/L High 98-107 [facility] Comment on above: Order Comment: Campu s: M Performed By: #### L 500.41771, L500.68281 ####[facility] PYEXIVGSGQ5841 [place], [place] [address]Bx# [phone] CO2 molar conc 20 mmol/L Low 21-32 [facility] Comment on above: Order Comment: Campu s: M Performed By: #### L 500.53525, L500.74738 ####[facility] JWHYWYXVCI7932 [place], [place] [address]Xz# [phone] Creatinine mass conc 4.060 mg/dL High 0.510-0.950 [facility] Comment on above: Order Comment: Campu s: M Result Comment: Bea ents receiving either N-Acetylcysteine (NAC) orMetamizole prior to venipuncture, may have falsely depressedresults. Performed By: #### L 500.62280, L500.92933 ####[facility] KKADIBROTT0192 [place], [place] [address]Ig# [phone] Glucose mass conc 231 mg/dL High 70-100 [facility] Comment on above: Order Comment: Campu s: M Result Comment: 70-1 00- Normal Fasting; 100-125 Impaired Fasting; greaterthan 126 on more than one result- Diabetes. ADA guidelines.Results may be falsely elevated after the administration ofSulfapyridine.Results may be falsely depressed after the administration ofSulfasalazine. Performed By: #### L 500.97458, L500.95195 ####[address] [address]Fk# [phone] Phosphate mass conc 4.8 mg/dL Normal 2.5-4.9 [facility] Comment on above: Order Comment: Campu s: M Performed By: #### L 500.66607, L500.59227 ####[facility] E[address]ZLGBKUX[address] [place] [address]Jm# [phone] Potassium molar conc 5.1 mmol/L Normal 3.5-5.1 [facility] Comment on above: Order Comment: Campu s: M Performed By: #### L 500.61391, L500.48569 ####[facility] LJVCEAIZEV[address] [place] [address]Hv# [phone] Sodium molar conc 140 mmol/L Normal 136-145 [facility] Comment on above: Order Comment: Campu s: M Performed By: #### L 500.02411, L500.64655 ####[facility] NZJMSUDRLG[address] [place] [address]Hg# [phone] Urea nitrogen mass conc 48 mg/dL High 7-26 [facility] Comment on above: Order Comment: Campu s: M Performed By: #### L 500.07107, L500.97552 ####[facility] FKDICEBJIG3986 [place], [place] [address]Dq# [phone] Urea nitrogen/Creatinine mass ratio 12 mg/mg Low 15-24 [facility] Comment on above: Order Comment: Nenita s: M Performed By: #### L 500.50090, L500.55788 ####[facility] LDCGCTBHYZ4426 [place], [place] [address]Ek# [phone] US DIALYSIS GRAFT/FISTULAon 11-27-2017 US DIALYSIS GRAFT/FISTULA [place], [place] [address]Cdjlyfou Lab- [facility] Accredited in:Extracranial Cerebrovascular, Visceral Vascular, Vascular Screening& Peripheral Arterial & Venous TestingPhone: MEDSTREAMING REPORTPatient: Asael BHATTI Dr: HÉCTOR HERRERA M.D.[id number]/ [id number] FStatus: REG NESTOR Eduardo for Visit: CKD STAGE 5 N18.5Service Date: 11/27/17Access#: [id number]: US DIALYSIS GRAFT/FISTULAConclusions:L eft:1. The radial artery to cephalic vein AV fistula appears to be stenotic in the proximaloutflow with a velocity of 533/205 cm/s. Post stenotic turbulence is visualized distal tothe stenosis.2. The Brachial Artery flow volume is 216cc/minAbbreviated Final Report. Full Report available via Link to [employer] in [employer] Image Viewer .Electronically Signed by: HÉCTOR HERRERA M.D. 11/28/17 0828 HÉCTOR HERRERA M.D.cc: HÉCTOR HERRERA M.D. << Signature on File>> Reported By: HÉCTOR HERRERA M.D. Signed By: HÉCTOR HERRERA M.D.Tests performed at:[address] [phone] Normal [facility] BMPon 10-04-2017 Anion gap 3 molar conc 8 mmol/L Normal 5-16 [facility] Comment on above: Order Comment: Campu s: M Performed By: #### L 500.58368, L500.64324 ####[facility] LUOCLBHODD8733 [place], [place] [address]Df# [phone] Calcium mass conc 8.2 mg/dL Low 8.5-10.1 [facility] Comment on above: Order Comment: Campu s: M Performed By: #### L 500.13640, L500.97739 ####[facility] XPAIXOURXI1397 [place], [place] [address]Ou# [phone] Chloride molar conc 106 mmol/L Normal 98-107 [facility] Comment on above: Order Comment: Campu s: M Performed By: #### L 500.31514, L500.24007 ####[facility] DMYLFEHXJK4010 [place], [place] [address]Wn# [phone] CO2 molar conc 25 mmol/L Normal 21-32 [facility] Comment on above: Order Comment: Campu s: M Performed By: #### L 500.90469, L500.27022 ####[facility] MKBVSODETI8938 [place], [place] [address]Sp# [phone] Creatinine mass conc 4.160 mg/dL High 0.510-0.950 [facility] Comment on above: Order Comment: Campu s: M Result Comment: Bea ents receiving either N-Acetylcysteine (NAC) orMetamizole prior to venipuncture, may have falsely depressedresults. Performed By: #### L 500.90169, L500.47018 ####[facility] HCLYTEIDPD9078 [place], [place] [address]Ra# [phone] Glucose mass conc 224 mg/dL High 70-100 [facility] Comment on above: Order Comment: Calebu s: M Result Comment: 70-1 00- Normal Fasting; 100-125 Impaired Fasting; greaterthan 126 on more than one result- Diabetes. ADA guidelines.Results may be falsely elevated after the administration ofSulfapyridine.Results may be falsely depressed after the administration ofSulfasalazine. Performed By: #### L 500.15529, L500.85960 ####[facility] CYCQXXKZHC9281 [place], [place] [address]Zs# [phone] Potassium molar conc 4.9 mmol/L Normal 3.5-5.1 [facility] Comment on above: Order Comment: Campu s: M Performed By: #### L 500.67851, L500.37393 ####[address] [address]Ev# [phone] Sodium molar conc 139 mmol/L Normal 136-145 [facility] Comment on above: Order Comment: Campu s: M Performed By: #### L 500.49744, L500.36563 ####[address] [address]Zw# [phone] Urea nitrogen mass conc 52 mg/dL High 7-26 [facility] Comment on above: Order Comment: Campu s: M Performed By: #### L 500.08085, L500.05698 ####[facility] [id number] [place] [address]Vz# [phone] Urea nitrogen/Creatinine mass ratio 12 mg/mg Low 15-24 [facility] Comment on above: Order Comment: Campu s: M Performed By: #### L 500.38628, L500.07548 ####[facility] LSRVTHVKPZ[address] [place] [address]Zq# [phone] CBC W/DIFFon 10-04-2017 BASO ABS 0.10 K/CU MM Normal 0-0.2 [facility] Comment on above: Order Comment: Campu s: M Performed By: #### L 200.48535 ####[facility] [id number] [place] [address]Do# [phone] Basophils/100 WBC Auto (Bld) 0.8 % Normal 0-2 [facility] Comment on above: Order Comment: Campu s: M Performed By: #### L 200.06134 ####[facility] EWJBCLWRSG6009 [place], [place] [address]Wa# [phone] EOS ABS 0.10 K/CU MM Normal 0-0.5 [facility] Comment on above: Order Comment: Campu s: M Performed By: #### L 200.53515 ####[facility] XCMIIVOIAT[address] [place], [place] [address]Ph# [phone] Eosinophils/100 WBC Auto (Bld) 1.1 % Normal 0-5 [facility] Comment on above: Order Comment: Campu s: M Performed By: #### L 200.11787 ####[address] [address]Kl# [phone] Erythrocyte distribution width Auto Ratio (RBC) 12.7 % Normal 11-14.5 [facility] Comment on above: Order Comment: Campu s: M Performed By: #### L 200.15060 ####[facility] KMPRQWREVO9[address] [place], [place] [address]Ph# [phone] Hematocrit Auto Volume Fraction (Bld) 33.0 % Low 35.0-47.0 [facility] Comment on above: Order Comment: Campu s: M Performed By: #### L 200.98578 ####[facility] FDWJBXBYIK[address] [place] [address]Us# [phone] Hemoglobin mass conc (Bld) 11.0 g/dL Low 11.5-15.5 [facility] Comment on above: Order Comment: Campu s: M Performed By: #### L 200.51776 ####[facility] [id number] [place] [address]Ri# [phone] IMMATR GRAN ABS 0.00 K/CU MM Normal Less than 2 [facility] Comment on above: Order Comment: Campu s: M Performed By: #### L 200.11459 ####[facility] NQIDPJCIZV[address] [place], [place] [address]Ph# [phone] IMMATURE GRAN % 0.3 % Normal Less than 2 [facility] Comment on above: Order Comment: Campu s: M Performed By: #### L 200.33657 ####[facility] [id number] [place], [place] [address]Ph# [phone] Lymphocytes Auto #/vol (Bld) 1.20 K/CU MM Normal 0.9-4.4 [facility] Comment on above: Order Comment: Campu s: M Performed By: #### L 200.87269 ####[place] [address]Ph# [phone] Lymphocytes/100 WBC Auto (Bld) 16.2 % Low 20-40 [facility] Comment on above: Order Comment: Campu s: M Performed By: #### L 200.05890 ####[place] [address]Ph# [phone] MCHC Auto mass conc (RBC) 33.3 g/dL Normal 32.0-36.0 [facility] Comment on above: Order Comment: Campu s: M Performed By: #### L 200.96111 ####[facility] SGEPEGDIIY8499[address] [place], [place] [address]Ph# [phone] MCV Auto Entitic volume (RBC) 85.3 fL Normal 80.0-99.0 [facility] Comment on above: Order Comment: Campu s: M Performed By: #### L 200.35682 ####[facility] [id number] [place], [place] [address]Ph# [phone] MONO ABS 0.40 K/CU MM Normal 0.1-1.1 [facility] Comment on above: Order Comment: Campu s: M Performed By: #### L 200.05866 ####[facility] ZQJLSFJGOQ8780[address] [place], [place] [address]Ph# [phone] Monocytes/100 WBC Auto (Bld) 5.2 % Normal 2-10 [facility] Comment on above: Order Comment: Campu s: M Performed By: #### L 200.70869 ####[facility] KHMBAUGOEQ1300 [place], [place] [address]Uv# [phone] NEUTROPHIL ABS 5.80 K/CU MM Normal 2.0-8.3 [facility] Comment on above: Order Comment: Campu s: M Performed By: #### L 200.03262 ####[facility] TTOUVMDCDU477[address] [place], [place] [address]Ph# [phone] Neutrophils/100 WBC Auto (Bld) 76.4 % High 45-75 [facility] Comment on above: Order Comment: Campu s: M Performed By: #### L 200.66800 ####[address] [address]Vi# [phone] Nucleated RBC/100 WBC Ratio (Bld) 0.0 % Normal Less than 1 [facility] Comment on above: Order Comment: Campu s: M Performed By: #### L 200.95735 ####[facility] BLUVYBWFXW[address] [place], [place] [address]Ph# [phone] Platelet mean volume Auto Entitic volume (Bld) 9.0 fL Low 9.4-12.4 [facility] Comment on above: Order Comment: Campu s: M Performed By: #### L 200.74863 ####[facility] [id number] [place] [address]Sp# [phone] Platelets Auto #/vol (Bld) 189 K/CU MM Normal 150-450 [facility] Comment on above: Order Comment: Campu s: M Performed By: #### L 200.04443 ####[facility] [id number] [place] [address]Fl# [phone] RBC Auto #/vol (Bld) 3.87 M/CU MM Low 3.90-5.30 [facility] Comment on above: Order Comment: Campu s: M Performed By: #### L 200.65364 ####[facility] MAHTJULEXY89[address] [place], [place] [address]Ph# [phone] WBC Auto #/vol (Bld) 7.5 K/CU MM Normal 4.5-11.0 [facility] Comment on above: Order Comment: Campu s: M Performed By: #### L 200.85634 ####[facility] EMVFTDPCUS8420 [place], [place] [address]By# [phone] GFR ESTon 10-04-2017 IF AMER 14 ML/MIN Normal [facility] Comment on above: Order Comment: Campu s: M Performed By: #### L 500.84158, L500.30258 ####[facility] IPLOJWVGBO8839 [place], [place] [address]Sg# [phone] IF non-AFR AMER 11 ML/MIN Normal [facility] Comment on above: Order Comment: Campu s: M Performed By: #### L 500.49540, L500.06179 ####[facility] DRLEPADJNG4882 [place], [place] [address]Nr# [phone] GLUCOSE METERon 10-04-2017 Glucose mass conc 169 mg/dL High 85-125 [facility] ORon 10-04-2017 OPERATIVE REPORT Normal [facility] OR DATE OF SERVICE: 10/04/2017PREOPERATIVE DIAGNOSIS: Chronic renal failure.POSTOPERATIVE DIAGNOSIS: Chronic renal failure.OPERATION: Left radiocephalic arteriovenous fistula.SURGEON: Héctor Herrera MDESTIMATED BLOOD LOSS: Minimal.ANESTHESIA: General.COMPLICATIONS: None.SPECIMENS: None.REASON FOR PROCEDURE: This is a 52-year-old white female presents for a fistulacreation for chronic renal failure for long-term dialysis access. The risks andbenefits of the procedure were detailed with the patient and family. They statedthey understood and agreed to the procedure.PROCEDURE: The patient was brought to the operating room where she was placed insupine position. After adequate general anesthesia was established, the left arm wasprepped and draped in the standard sterile fashion. Ultrasound surveillance of theleft arm revealed borderline adequate cephalic vein but it was really the only optionshe had. The radial artery was palpable +3. The vein was marked, the radial arterywas marked. A longitudinal incision was made in the distal radial aspect of thewrist. Dissection was carried out through the soft tissue and through the fasciallayer and encircling the radial artery with vessel loops. This meticulous dissectionwas carried to free up the cephalic vein from the surrounding soft tissue. It wasflushed, ligated distally, flushed with heparinized saline, dilated up fairly well to2.5 to 3. The patient was systemically heparinized. We then performed jyjpw-yw-wrni spatulated anastomosis between the cephalic and radial artery with a 7-0Prolene suture. The vessel was flushed, antegrade flow restored. Good thrill wasnoted as well as a Doppler signal. The dorsal branch was ligated with Hemoclip.Good flow was noted throughout. The patient had minimal branching proximally intothe forearm and antecubital fossa.Attention was placed to the wound, it was irrigated and noted to be hemostatic.Surgicel was placed. The wound was then closed with Vicryl suture and subcuticularstitch and Steri-Strips to the skin. Sponge, needle and instrument counts werecorrect at the end of the case. The patient tolerated the procedure and wastransferred to the recovery room in stable condition. [facility] PATIENT NAME: SANDY BHTATI [id number] [facility] [address] [place] MEDICAL REC #: [id number], [place] [id number] DATE:DISCHARGE DATE:OPERATIVE REPORT ATTENDING PHY: Héctor Herrera MD J CIPRIANO Christianson/[id number]: 10/04/2017 10:05DT: 10/04/2017 10:43SSI File#: [id number] #: [id number]/Reviewed by10/04/17 1119 PREJE [facility] PATIENT NAME: [facility] BHATTI [id number] [facility] #: [id number], [place] [address] DATE:DISCHARGE DATE:OPERATIVE REPORT ATTENDING PHY: Héctor Herrera MD Normal [facility] PATIENT RETYPEon 10-04-2017 RETYPE INTERP [facility]2017 ABO and Rh group Nom (Bld) A POSITIVE [facility] Comment on above: Order Comment: Campu s: MPatient transfused or in the past 3 months? NOIs This Patient Going To Surgery? YSurgery Date: 10/04/17 VEIN MAPPING FOR DIALYSISon 09-18-2017 VEIN MAPPING [place] [address] Accredited in:Extracranial Cerebrovascular, Visceral Vascular, Vascular Screening& Peripheral Arterial & Venous TestingPhone: MEDSTREAMING REPORTPatient: Asael BHATTI Dr: HAO NUNEZ M.D.[id number]/ [id number] FStatus: BONNIE Eduardo for Visit: SOMMER CKD STAGE 5Service Date: 09/18/17Access#: [id number]: VEIN MAPPING FOR DIALYSISConclusions:Right: 1. Patent superficial system with measurements listed above2. There appears to be calcification noted throughout the brachial and radial artery3. The basilic vein is not seen at S64. Prox brachial artery .4cm 164cm/s, mid brachial artery .3cm 141cm/s, dist brachial artery.4cm 119cm/s, prox radial artery .3cm 93cm/s, mid radial artery .2cm 93cm/s, and dist radialartery .1cm 124cm/sLeft:1. Patent superficial system with measurements listed above2. There appears to be calcification noted throughout the brachial and radial artery3. Prox brachial artery .4cm 147cm/s, mid brachial artery .3cm 136cm/s, dist brachial artery.4cm 94cm/s, prox radial artery .3cm 86cm/s, mid radial artery .2cm 98cm/s, and dist radialartery .2cm 114cm/sMD, RPVIAbbreviated Final Report. Full Report available via Link to [employer] in [employer] [place] [employer] -[employer] Image Viewer .Electronically Signed by: HÉCTOR HERRERA M.D. 09/19/17 1047 HÉCTOR HERRERA M.D.cc: HAO NUNEZ M.D. << Signature on File>> Reported By: HÉCTOR HERRERA M.D. Signed By: HÉCTOR HERRERA M.D.Tests performed at:[address] [phone] Normal [facility] No Panel Information [facility] Vital Signs Date Time Vital Sign Value Performing Clinician Facility 05-13-2025 08:59-0400 Body mass index (BMI) [Ratio] 22.78 kg/m2 Maldonado Raza MD Work Phone: [facility] 05-13-2025 08:59-0400 Body temperature 97.81 [degF] Maldonado Raza MD Work Phone: [facility] 05-13-2025 08:59-0400 Body weight 56.5 kg Maldonado Raza MD Work Phone: [facility] 05-13-2025 08:59-0400 Diastolic blood pressure 56 mm[Hg] Maldonado Raza MD Work Phone: [facility] 05-13-2025 08:59-0400 Heart rate 64 /min Maldonado Raza MD Work Phone: [facility] 05-13-2025 08:59-0400 SaO2% (BldA) [Mass fraction] 98 % Maldonado Raza MD Work Phone: [facility] 05-13-2025 08:59-0400 Systolic blood pressure 130 mm[Hg] Maldonado Raza MD Work Phone: [facility] 02-20-2025 09:10-0400 Diastolic blood pressure 62 mm[Hg] Fer Duron MD Work Phone: [facility] 02-20-2025 09:10-0400 Systolic blood pressure 164 mm[Hg] Fer Duron MD Work Phone: [facility] 02-20-2025 09:06-0400 Body height 157.5 cm Fer Duron MD Work Phone: [facility] 02-20-2025 09:06-0400 Body mass index (BMI) [Ratio] 24.15 kg/m2 Fer Duron MD Work Phone: [facility] 02-20-2025 09:06-0400 Body weight 59.9 kg Fer Duron MD Work Phone: [facility] 02-20-2025 09:06-0400 Heart rate 68 /min Fer Duron MD Work Phone: [facility] 02-06-2025 11:44-0400 Body mass index (BMI) [Ratio] 23.75 kg/m2 Maldonado Raza MD Work Phone: [facility] 02-06-2025 11:44-0400 Body temperature 98.29 [degF] Maldonado Raza MD Work Phone: [facility] 02-06-2025 11:44-0400 Body weight 58.9 kg Maldonado Raza MD Work Phone: [facility] 02-06-2025 11:44-0400 Diastolic blood pressure 60 mm[Hg] Maldonado Raza MD Work Phone: [facility] 02-06-2025 11:44-0400 Heart rate 68 /min Maldonado Raza MD Work Phone: [facility] 02-06-2025 11:44-0400 SaO2% (BldA) [Mass fraction] 97 % Maldonado Raza MD Work Phone: [facility] 02-06-2025 11:44-0400 Systolic blood pressure 124 mm[Hg] Maldonado Raza MD Work Phone: [facility] 01-30-2025 09:57-0400 Body temperature 98 [degF] Dr. Maldonado Raza MD Work Phone: [facility] 01-30-2025 09:57-0400 Diastolic blood pressure 50 mm[Hg] Dr. Maldonado Raza MD Work Phone: 1(431)860-491491 [place] [address] 01-30-2025 09:57-0400 Heart rate 69 /min Dr. Maldonado Raza MD Work Phone: 4(488)482-187991 [place] [address] 01-30-2025 09:57-0400 Inhaled oxygen flow rate 2 L/min Dr. Maldonado Raza MD Work Phone: 3(594)440-610030 [place] [address] 01-30-2025 09:57-0400 Respiratory rate 16 /min Dr. Maldonado Raza MD Work Phone: 9(777)689-576730 [place] [address] 01-30-2025 09:57-0400 SaO2% (BldA) [Mass fraction] 96 % Dr. Maldonado Raza MD Work Phone: 0(142)446-389330 [place] [address] 01-30-2025 09:57-0400 Systolic blood pressure 146 mm[Hg] Dr. Maldonado Raza MD Work Phone: 3(527)550-733130 [place] [address] 01-29-2025 15:35-0400 Body mass index (BMI) [Ratio] 20.8 kg/m2 Dr. Maldonado Raza MD Work Phone: 8(181)268-198930 [place] [address] 01-29-2025 15:35-0400 Body weight 55.[address] Maldonado Raza MD Work Phone: 3(593)131-176491 [place] [address] 01-28-2025 13:12-0400 Body height 162.[address] Maldonado Raza MD Work Phone: 9(598)896-590291 [place] [address] 01-28-2025 09:59-0400 Body temperature 98.3 [degF] Dr. Maldonado Raza MD Work Phone: 1(863)630-128191 [place] [address] 01-28-2025 09:59-0400 Diastolic blood pressure 59 mm[Hg] Dr. Maldonado Raza MD Work Phone: 3(788)350-708791 [place] [address] 01-28-2025 09:59-0400 Heart rate 92 /min Dr. Maldonado Raza MD Work Phone: 2(920)802-939391 [place] [address] 01-28-2025 09:59-0400 Respiratory rate 22 /min Dr. Maldonado Raza MD Work Phone: 7(356)286-227791 [place] [address] 01-28-2025 09:59-0400 SaO2% (BldA) [Mass fraction] 98 % Dr. Maldonado Raza MD Work Phone: 7(316)449-225091 [place] [address] 01-28-2025 09:59-0400 Systolic blood pressure 162 mm[Hg] Dr. Maldonado Raza MD Work Phone: 8(515)924-313891 [place] [address] 01-28-2025 08:18-0400 Inhaled oxygen flow rate 2 L/min Dr. Maldonado Raza MD Work Phone: 1(914)808-557591 [place] [address] 01-28-2025 07:51-0400 Body height 160.[address] Maldonado Raza MD Work Phone: 9(394)204-139491 [place] [address] 01-28-2025 07:51-0400 Body mass index (BMI) [Ratio] 25.4 kg/m2 Dr. Maldonado Raza MD Work Phone: 1(431)114-909191 [place] [address] 01-28-2025 07:51-0400 Body weight 65.[address] Maldonado Raza MD Work Phone: 6(285)474-095991 [place] [address] 12-31-2024 10:12-0400 Body mass index (BMI) [Ratio] 23 kg/m2 Dr. Maldonado aRza MD Work Phone: 7(867)146-309391 [place] [address] 12-31-2024 10:12-0400 Body temperature 97.8 [degF] Dr. Maldonado Raza MD Work Phone: [facility] 12-31-2024 10:12-0400 Body weight 58.[address] Maldonado Raza MD Work Phone: [facility] 12-31-2024 10:12-0400 Diastolic blood pressure 66 mm[Hg] Dr. Maldonado Raza MD Work Phone: [facility] 12-31-2024 10:12-0400 Heart rate 88 /min Dr. Maldonado Raza MD Work Phone: [facility] 12-31-2024 10:12-0400 SaO2% (BldA) [Mass fraction] 95 % Dr. Maldonado Raza MD Work Phone: [facility] 12-31-2024 10:12-0400 Systolic blood pressure 169 mm[Hg] Dr. Maldonado Raza MD Work Phone: [facility] 12-05-2024 09:28-0400 Body mass index (BMI) [Ratio] 24.17 kg/m2 Maldonado Raza MD Work Phone: [facility] 12-05-2024 09:28-0400 Body temperature 98.1 [degF] Maldonado Raza MD Work Phone: [facility] 12-05-2024 09:28-0400 Body weight 61.1 kg Maldonado Raza MD Work Phone: [facility] 12-05-2024 09:28-0400 Diastolic blood pressure 64 mm[Hg] Maldonado Raza MD Work Phone: [facility] 12-05-2024 09:28-0400 Heart rate 68 /min Maldonado Raza MD Work Phone: [facility] 12-05-2024 09:28-0400 Systolic blood pressure 124 mm[Hg] Maldonado Raza MD Work Phone: [facility] 11-26-2024 08:19-0400 Body height 157 cm [facility] 11-26-2024 08:19-0400 Body mass index (BMI) [Ratio] 26.78 kg/m2 [facility] 11-26-2024 08:19-0400 Body weight 66 kg [facility] 07-25-2024 10:57-0500 Body mass index (BMI) [Ratio] 26.78 kg/m2 Kade Jones MD Work Phone: [facility] 07-25-2024 10:57-0500 Body temperature 97.39 [degF] Kade Jones MD Work Phone: [facility] 07-25-2024 10:57-0500 Body weight 66.41 kg Kade Jones MD Work Phone: [facility] 07-25-2024 10:57-0500 Diastolic blood pressure 85 mm[Hg] Kade Jones MD Work Phone: [facility] 07-25-2024 10:57-0500 Heart rate 67 /min Kade Jones MD Work Phone: [facility] 07-25-2024 10:57-0500 SaO2% (BldA) [Mass fraction] 93 % Kade Jones MD Work Phone: [facility] 07-25-2024 10:57-0500 Systolic blood pressure 158 mm[Hg] Kade Jones MD Work Phone: [facility] 07-23-2024 16:28-0500 Body height 157.5 cm Murtaza Castellon MD Work Phone: [facility] 07-23-2024 16:28-0500 Body mass index (BMI) [Ratio] 26.7 kg/m2 Murtaza Castellon MD Work Phone: [facility] 07-23-2024 16:28-0500 Body weight 66.22 kg Murtaza Castellon MD Work Phone: [facility] 07-23-2024 16:28-0500 Diastolic blood pressure 64 mm[Hg] Murtaza Castellon MD Work Phone: [facility] 07-23-2024 16:28-0500 Heart rate 86 /min Murtaza Castellon MD Work Phone: [facility] 07-23-2024 16:28-0500 SaO2% (BldA) [Mass fraction] 90 % Murtaza Castellon MD Work Phone: [facility] 07-23-2024 16:28-0500 Systolic blood pressure 162 mm[Hg] Murtaza Castellon MD Work Phone: [facility] 06-13-2024 15:06-0400 Body height 159 cm Maldonado Raza MD Work Phone: [facility] 06-13-2024 15:06-0400 Body mass index (BMI) [Ratio] 26.74 kg/m2 Maldonado Raza MD Work Phone: [facility] 06-13-2024 15:06-0400 Body temperature 97.11 [degF] Maldonado Raza MD Work Phone: [facility] 06-13-2024 15:06-0400 Body weight 67.6 kg Maldonado Raza MD Work Phone: [facility] 06-11-2024 07:26-0400 Diastolic blood pressure 68 mm[Hg] Mandie Younger APRN.HIGH FREQUENCY MILL OPERATOR Work Phone: [facility] 06-11-2024 07:26-0400 Systolic blood pressure 136 mm[Hg] Mandie Younger APRN.HIGH FREQUENCY MILL OPERATOR Work Phone: [facility] 06-11-2024 07:00-0400 Body height 160 cm Mandie Younger APRN.HIGH FREQUENCY MILL OPERATOR Work Phone: [facility] 06-11-2024 07:00-0400 Body mass index (BMI) [Ratio] 26.44 kg/m2 Mandie Devin HAZARDOUS MATERIALS HANDLER.HIGH FREQUENCY MILL OPERATOR Work Phone: [facility] 06-11-2024 07:00-0400 Body weight 67.7 kg Mandie Ortegaoll HAZARDOUS MATERIALS HANDLER.HIGH FREQUENCY MILL OPERATOR Work Phone: [facility] 06-11-2024 07:00-0400 Heart rate 78 /min Mandie Devin HAZARDOUS MATERIALS HANDLER.HIGH FREQUENCY MILL OPERATOR Work Phone: [facility] 06-11-2024 07:00-0400 SaO2% (BldA) [Mass fraction] 97 % Mandie Ortegaoll HAZARDOUS MATERIALS HANDLER.HIGH FREQUENCY MILL OPERATOR Work Phone: [facility] 05-08-2024 15:33-0400 Diastolic blood pressure 67 mm[Hg] Luna Thomas MD Work Phone: [facility] 05-08-2024 15:33-0400 Heart rate 82 /min Luna Thomas MD Work Phone: [facility] 05-08-2024 15:33-0400 Systolic blood pressure 167 mm[Hg] Luna Thomas MD Work Phone: [facility] 02-29-2024 15:12-0400 Diastolic blood pressure 64 mm[Hg] Maldonado Raza MD Work Phone: [facility] 02-29-2024 15:12-0400 Heart rate 73 /min Maldonado Raza MD Work Phone: [facility] 02-29-2024 15:12-0400 Systolic blood pressure 181 mm[Hg] Maldonado Raza MD Work Phone: [facility] 02-29-2024 15:03-0400 Body mass index (BMI) [Ratio] 27.22 kg/m2 Maldonado Raza MD Work Phone: [facility] 02-29-2024 15:03-0400 Body temperature 97.81 [degF] Maldonado Raza MD Work Phone: [facility] 02-29-2024 15:03-0400 Body weight 67.5 kg Maldondao Raza MD Work Phone: [facility] 12-07-2023 10:02-0400 Body height 160 cm Dave Gross DO Work Phone: [facility] 12-07-2023 10:02-040 Body weight 67.59 kg Dave Gross DO Work Phone: [facility] 12-07-2023 10:02-0400 Diastolic blood pressure 56 mm[Hg] Dave Gross DO Work Phone: [facility] 12-07-2023 10:02-0400 Heart rate 70 /min Dave Gross DO Work Phone: [facility] 12-07-2023 10:02-0400 Systolic blood pressure 132 mm[Hg] Dave Gross DO Work Phone: [facility] 10-26-2023 13:12-0500 Diastolic blood pressure 67 mm[Hg] Maldonado Raza MD Work Phone: [facility] 10-26-2023 13:12-0500 Heart rate 71 /min Maldonado Raza MD Work Phone: [facility] 10-26-2023 13:12-0500 Systolic blood pressure 154 mm[Hg] Maldonado Raza MD Work Phone: [facility] 10-26-2023 13:01-0500 Body height 159 cm Maldonado Raza MD Work Phone: [facility] 10-26-2023 13:01-0500 Body temperature 97.9 [degF] Maldonado Raza MD Work Phone: [facility] 10-26-2023 13:01-0500 Body weight 67.59 kg Maldonado Raza MD Work Phone: [facility] 09-18-2023 11:45-0500 Diastolic blood pressure 63 mm[Hg] [address] 09-18-2023 11:45-0500 Heart rate 82 /min [address] 09-18-2023 11:45-0500 Respiratory rate 16 /min [address] 09-18-2023 11:45-0500 SaO2% (BldA) [Mass fraction] 98 % [address] 09-18-2023 11:45-0500 Systolic blood pressure 147 mm[Hg] [address] 06-29-2023 13:51-0400 Diastolic blood pressure 56 mm[Hg] Maldonado Raza MD Work Phone: [facility] 06-29-2023 13:51-0400 Heart rate 66 /min Maldonado Raza MD Work Phone: [facility] 06-29-2023 13:51-0400 Systolic blood pressure 143 mm[Hg] Maldonado Raza MD Work Phone: [facility] 06-29-2023 13:48-0400 Body weight 68.45 kg Maldonado Raza MD Work Phone: [facility] 06-29-2023 13:48-0400 Respiratory rate 16 /min Maldonado Raza MD Work Phone: [facility] 06-12-2023 14:47-0400 Diastolic blood pressure 56 mm[Hg] Ifeoma Older HAZARDOUS MATERIALS HANDLER.HIGH FREQUENCY MILL OPERATOR Work Phone: [facility] 06-12-2023 14:47-0400 Heart rate 89 /min Ifeoma Older HAZARDOUS MATERIALS HANDLER.HIGH FREQUENCY MILL OPERATOR Work Phone: [facility] 06-12-2023 14:47-0400 Respiratory rate 14 /min Ifeoma Older HAZARDOUS MATERIALS HANDLER.HIGH FREQUENCY MILL OPERATOR Work Phone: [facility] 06-12-2023 14:47-0400 SaO2% (BldA) [Mass fraction] 97 % Ifeoma Older HAZARDOUS MATERIALS HANDLER.HIGH FREQUENCY MILL OPERATOR Work Phone: [facility] 06-12-2023 14:47-0400 Systolic blood pressure 134 mm[Hg] Ifeoma Older HAZARDOUS MATERIALS HANDLER.HIGH FREQUENCY MILL OPERATOR Work Phone: [facility] 05-31-2023 21:37-0400 10 1 No PCP None WX-Oinzqihesq-VS C [place] [address] Work Phone: Comment on above: PHQ-9 TS 05-30-2023 15:02-0400 Body height 160.02 cm No PCP None AM-Dlfmevjqyy-OG C [place] [address] Work Phone: 05-30-2023 15:02-0400 Body mass index (BMI) [Ratio] 27.63 kg/m2 No PCP None TL-Rnjquhoklx-LPU [place] [address] Work Phone: 05-30-2023 15:02-0400 Body surface area Derived from formula 1.74 m2 No PCP None QW-Lxmunvobzt-LND [place] [address] Work Phone: 05-30-2023 15:02-0400 Body temperature 97.6 [degF] No PCP None LP-Kmnewbnomg-P MC [place] [address] Work Phone: 05-30-2023 15:02-0400 Body weight 70.76 kg No PCP None KI-Wrorrszbsy-ET C [place] [address] Work Phone: 05-30-2023 15:02-0400 Diastolic blood pressure 112 mm[Hg] No PCP None XI-Qbqnsikhpz-ZVO [place] [address] Work Phone: 05-30-2023 15:02-0400 Heart rate 104 /min No PCP None PK-Vpkbkfdsyp-NR C [place] [address] Work Phone: 05-30-2023 15:02-0400 Respiratory rate 18 /min No PCP None HN-Unjuvxkvoy-E MC [place] [address] Work Phone: 05-30-2023 15:02-0400 SaO2% (BldA) [Mass fraction] 99 % No PCP None PF-Xzsrfdwbeo-PKE [place] [address] Work Phone: 05-30-2023 15:02-0400 Systolic blood pressure 147 mm[Hg] No PCP None SC-Jqsarncwlp-MMO [place] [address] Work Phone: 05-30-2023 15:02-0400 0 1 No PCP None HR-Qzjnzyythk-UJ C [place] [address] Work Phone: Comment on above: [employer] 02-01-2023 16:18-0400 Respiratory rate 16 /min YOUSUF DEGENHARD DO [facility] 02-01-2023 15:44-0400 Diastolic Blood Pressure Non-Invasive 66 1 YOUSUF DEGENHARD DO [facility] 02-01-2023 15:44-0400 Heart rate 76 /min YOUSUF DEGENHARD DO [facility] 02-01-2023 15:44-0400 Respiratory rate 16 /min YOUSUF DEGENHARD DO [facility] 02-01-2023 15:44-0400 Systolic Blood Pressure Non-Invasive 133 1 YOUSUF DEGENHARD DO [facility] 02-01-2023 15:32-0400 Diastolic Blood Pressure Non-Invasive 67 1 YOUSUF DUMONTHARD DO [facility] 02-01-2023 15:32-0400 Heart rate 76 /min YOUSUF DUMONTHARD DO [facility] 02-01-2023 15:32-0400 Respiratory rate 16 /min YOUSUF CROW DO [facility] 02-01-2023 15:32-0400 Systolic Blood Pressure Non-Invasive 143 1 YOUSUF CROW DO [facility] 02-01-2023 15:15-0400 Diastolic Blood Pressure Non-Invasive 57 1 YOUSUF DEGENHARD DO [facility] 02-01-2023 15:15-0400 Heart rate 76 /min YOUSUF DEGENHARD DO [facility] 02-01-2023 15:15-0400 Systolic Blood Pressure Non-Invasive 132 1 YOUSUF DEGENHARD DO [facility] 02-01-2023 14:45-0400 Heart rate 79 /min YOUSUF DEGENHARD DO [facility] 02-01-2023 14:35-0400 Heart rate 77 /min YOUSUF DEGENHARD DO [facility] 02-01-2023 14:30-0400 Heart rate 77 /min YOUSUF CROW DO [facility] 02-01-2023 13:05-0400 Blood Pressure Cuff Size YOUSUF CROW DO [facility] 02-01-2023 13:05-0400 Blood Pressure Location YOUSUF CROW DO [facility] 02-01-2023 13:05-0400 Blood Pressure Method YOUSUF CROW DO [facility] 02-01-2023 11:24-0400 Blood Pressure Cuff Size YOUSUF CROW DO [facility] 02-01-2023 11:24-0400 Blood Pressure Location YOUSUF CROW DO [facility] 02-01-2023 11:24-0400 Blood Pressure Method YOUSUF CROW DO [facility] 02-01-2023 11:24-0400 Body height 160 cm YOUSUF CROW DO [facility] 02-01-2023 11:24-0400 Body temperature 97.88 [degF] YOUSUF CROW DO [facility] 02-01-2023 11:24-0400 Body weight 64.5 kg YOUSUF CROW DO [facility] 02-01-2023 11:24-0400 Body weight 25.2 kg/m2 YOUSUF CROW DO [facility] 12-19-2022 15:15-0400 Body height 160 cm Lisa Heredia PA-C Work Phone: [facility] 12-19-2022 15:15-0400 Body temperature 97.59 [degF] Lisa Heredia PA-C Work Phone: [facility] 12-19-2022 15:15-0400 Body weight 66.68 kg Lisa [place] PA-C Work Phone: [facility] 12-19-2022 15:15-0400 Diastolic blood pressure 44 mm[Hg] Lisa [place] PA-C Work Phone: [facility] 12-19-2022 15:15-0400 Heart rate 100 /min Lisa Brandon PA-C Work Phone: [facility] 12-19-2022 15:15-0400 SaO2% (BldA) [Mass fraction] 98 % Lisa [place] PA-C Work Phone: [facility] 12-19-2022 15:15-0400 Systolic blood pressure 150 mm[Hg] Lisa [place] PA-C Work Phone: [facility] 11-15-2022 10:30-0400 Diastolic blood pressure 77 mm[Hg] Ge Fuller MD Work Phone: [facility] 11-15-2022 10:30-0400 Heart rate 72 /min Ge Fuller MD Work Phone: [facility] 11-15-2022 10:30-0400 Respiratory rate 14 /min Ge Fuller MD Work Phone: [facility] 11-15-2022 10:30-0400 SaO2% (BldA) [Mass fraction] 100 % Ge Fuller MD Work Phone: [facility] 11-15-2022 10:30-0400 Systolic blood pressure 177 mm[Hg] Ge Fuller MD Work Phone: [facility] 11-15-2022 10:00-0400 Body temperature 97.3 [degF] Ge Fuller MD Work Phone: [facility] 11-15-2022 08:10-0400 Body height 160 cm Ge Fuller MD Work Phone: [facility] 11-15-2022 08:10-0400 Body weight 67.59 kg Ge Fuller MD Work Phone: [facility] 09-20-2022 12:57-0500 Body height 160 cm Lisa [place] PA-C Work Phone: [facility] 09-20-2022 12:57-0500 Body temperature 97.9 [degF] Lisa [place] PA-C Work Phone: [facility] 09-20-2022 12:57-0500 Body weight 67.95 kg Lisa Brandon PA-C Work Phone: [facility] 09-20-2022 12:57-0500 Diastolic blood pressure 72 mm[Hg] Lisa [place] PA-C Work Phone: [facility] 09-20-2022 12:57-0500 Heart rate 87 /min Lisa Brandon PA-C Work Phone: [facility] 09-20-2022 12:57-0500 SaO2% (BldA) [Mass fraction] 95 % Lisa [place] PA-C Work Phone: [facility] 09-20-2022 12:57-0500 Systolic blood pressure 118 mm[Hg] Lisa Brandon PA-C Work Phone: [facility] 09-20-2022 10:59-0500 Diastolic blood pressure 50 mm[Hg] Ifeoma Older HAZARDOUS MATERIALS HANDLER.HIGH FREQUENCY MILL OPERATOR Work Phone: [facility] 09-20-2022 10:59-0500 Systolic blood pressure 116 mm[Hg] Ifeoma Older HAZARDOUS MATERIALS HANDLER.HIGH FREQUENCY MILL OPERATOR Work Phone: [facility] 09-20-2022 10:45-0500 Body weight 67.13 kg Ifeoma Older HAZARDOUS MATERIALS HANDLER.HIGH FREQUENCY MILL OPERATOR Work Phone: [facility] 09-20-2022 10:45-0500 Heart rate 82 /min Ifeoma Older HAZARDOUS MATERIALS HANDLER.HIGH FREQUENCY MILL OPERATOR Work Phone: [facility] 09-20-2022 10:45-0500 Respiratory rate 12 /min Ifeoma Older HAZARDOUS MATERIALS HANDLER.HIGH FREQUENCY MILL OPERATOR Work Phone: [facility] 01-16-2023 13:58-0500 Diastolic blood pressure 59 mm[Hg] Dr. Maldonado Raza Work Phone: 2(604)768-837830 [place] [address] 09-19-2022 13:58-0500 Heart rate 71 /min Dr. Maldonado Raza Work Phone: 8(697)759-433830 [place] [address] 09-19-2022 13:58-0500 Respiratory rate 16 /min Dr. Maldonado Raza Work Phone: 0(678)366-561330 [place] [address] 09-19-2022 13:58-0500 SaO2% (BldA) [Mass fraction] 100 % Dr. Maldonado Raza Work Phone: 2(812)990-061391 [place] [address] 09-19-2022 13:58-0500 Systolic blood pressure 136 mm[Hg] Dr. Maldonado Raza Work Phone: 6(934)065-488491 [place] [address] 09-19-2022 10:42-0500 Body height 157.[address] Maldonado Raza Work Phone: 1(905)090-210391 [place] [address] 09-19-2022 10:42-0500 Body mass index (BMI) [Ratio] 27.2 kg/m2 Dr. Maldonado Raza Work Phone: 7(934)275-371991 [place] [address] 09-19-2022 10:42-0500 Body temperature 96.8 [degF] Dr. Maldonado Raza Work Phone: 6(384)349-643291 [place] [address] 09-19-2022 10:42-0500 Body weight 67.[address] Maldonado Raza Work Phone: 1(854)484-357491 [place] [address] 07-05-2022 10:43-0400 Body weight 65.86 kg Helen Cuellar HAZARDOUS MATERIALS HANDLER.CNM Work Phone: 8(357)567-004899 [place] [address] 07-05-2022 10:43-0400 Diastolic blood pressure 64 mm[Hg] Helen Cuellar HAZARDOUS MATERIALS HANDLER.CNM Work Phone: 9(057)190-752899 [place] [address] 07-05-2022 10:43-0400 Systolic blood pressure 132 mm[Hg] Helen Cuellar HAZARDOUS MATERIALS HANDLER.CNM Work Phone: 5(705)661-966999 [place] [address] 06-21-2022 14:01-0400 Body height 157.[address] Maldonado Raza Work Phone: [facility] Work Phone: 06-21-2022 14:01-0400 Body mass index (BMI) [Ratio] 27.2 kg/m2 Dr. Maldonado Raza Work Phone: [facility] 06-21-2022 14:01-0400 Body temperature 96.9 [degF] Dr. Maldonado Raza Work Phone: [facility] 06-21-2022 14:01-0400 Body weight 67.[address] Maldonado Raza Work Phone: 9(611)769-789430 [place] [address] 06-21-2022 14:01-0400 Diastolic blood pressure 59 mm[Hg] Dr. Maldonado Raza Work Phone: [facility] 06-21-2022 14:01-0400 Heart rate 116 /min Dr. Maldonado Raza Work Phone: [facility] 06-21-2022 14:01-0400 Respiratory rate 16 /min Dr. Maldonado Raza Work Phone: [facility] 06-21-2022 14:01-0400 SaO2% (BldA) [Mass fraction] 99 % Dr. Maldonado Raza Work Phone: [facility] 06-21-2022 14:01-0400 Systolic blood pressure 163 mm[Hg] Dr. Maldonado Raza Work Phone: [facility] 06-21-2022 12:34-0400 Body mass index (BMI) [Ratio] 26.5 kg/m2 Dr. Maldonado Raza Work Phone: [facility] 06-21-2022 12:34-0400 Body temperature 98.1 [degF] Dr. Maldonado Raza Work Phone: [facility] 06-21-2022 12:34-0400 Body weight 65.[address] Maldonado Raza Work Phone: [facility] 06-21-2022 12:34-0400 Diastolic blood pressure 71 mm[Hg] Dr. Maldonado Raza Work Phone: [facility] 06-21-2022 12:34-0400 Heart rate 105 /min Dr. Maldonado Raza Work Phone: [facility] 06-21-2022 12:34-0400 Respiratory rate 16 /min Dr. Maldonado Raza Work Phone: [facility] 06-21-2022 12:34-0400 SaO2% (BldA) [Mass fraction] 94 % Dr. Maldonado Raza Work Phone: [facility] 06-21-2022 12:34-0400 Systolic blood pressure 136 mm[Hg] Dr. Maldonado Raza Work Phone: [facility] 05-02-2022 14:10-0400 Diastolic blood pressure 65 mm[Hg] Maldonado Raza MD Work Phone: [facility] 05-02-2022 14:10-0400 Heart rate 102 /min Maldonado Raza MD Work Phone: [facility] 05-02-2022 14:10-0400 Systolic blood pressure 129 mm[Hg] Maldonado Raza MD Work Phone: [facility] 05-02-2022 14:06-0400 Body temperature 97 [degF] Maldonado Raza MD Work Phone: [facility] 05-02-2022 14:06-0400 Body weight 66.22 kg Maldonado Raza MD Work Phone: [facility] 05-02-2022 14:06-0400 Respiratory rate 20 /min Maldonado Raza MD Work Phone: [facility] 03-29-2022 15:06-0400 11 1 No PCP None GV-Nzsctfehie-Lj th er Work Phone: Comment on above: PHQ-9 TS 03-29-2022 14:59-0400 Body height 157.48 cm No PCP None GZ-Pprhbmnlks-Xt th er Work Phone: 03-29-2022 14:59-0400 Body mass index (BMI) [Ratio] 27.01 kg/m2 No PCP None LV-Phdcqzhqfc-Fvwf er Work Phone: 03-29-2022 14:59-0400 Body surface area Derived from formula 1.68 m2 No PCP None XJ-Ktiwvalshp-Wzlm er Work Phone: 03-29-2022 14:59-0400 Body temperature 97.7 [degF] No PCP None DE-Kiorqfzrvg-R ath er Work Phone: 03-29-2022 14:59-0400 Body weight 67 kg No PCP None NA-Vbwhdrkkuf-Od th er Work Phone: 03-29-2022 14:59-0400 Diastolic blood pressure 76 mm[Hg] No PCP None IG-Qddhufolkl-Cwwi er Work Phone: 03-29-2022 14:59-0400 Heart rate 112 /min No PCP None XX-Vjnjnasvis-Lp th er Work Phone: 03-29-2022 14:59-0400 SaO2% (BldA) [Mass fraction] 98 % No PCP None KG-Lgovfhygyd-Ijsf er Work Phone: 03-29-2022 14:59-0400 Systolic blood pressure 154 mm[Hg] No PCP None VL-Jkzgmuzorn-Ebxy er Work Phone: 03-29-2022 14:59-0400 0 1 No PCP None DF-Tqbrfwfifl-Fz th er Work Phone: Comment on above: [employer] 11-30-2021 11:38-0400 Body height 160 cm Von Chaney PA-C Work Phone: [facility] 11-30-2021 11:38-0400 Body temperature 97.5 [degF] Von Chaney PA-C Work Phone: [facility] 11-30-2021 11:38-0400 Body weight 67.13 kg Von Chaney PA-C Work Phone: [facility] 11-30-2021 11:38-0400 Diastolic blood pressure 54 mm[Hg] Von Chaney PA-C Work Phone: [facility] 11-30-2021 11:38-0400 Heart rate 96 /min Von Chaney PA-C Work Phone: [facility] 11-30-2021 11:38-0400 Respiratory rate 16 /min Von Chaney PA-C Work Phone: [facility] 11-30-2021 11:38-0400 SaO2% (BldA) [Mass fraction] 100 % Von Chaney PA-C Work Phone: [facility] 11-30-2021 11:38-0400 Systolic blood pressure 154 mm[Hg] Von Chaney PA-C Work Phone: [facility] 02-13-2018 19:10-0400 Body surface area Derived from formula NONREACTIVE [facility] Comment on above: Order Comment: [place]: Result Comment: RESU LTS WERE OBTAINED WITH THE [employer] XP.VALUES OBTAINED WITH DIFFERENT MANUFACTURERS' ASSAY METHODSMAY NOT BE USED INTERCHANGEABLY. Performed By: #### L [id number], [id number] ####[facility] [id number] [place], [place] [address]Ul# [phone] Encounters Encounter Date Encounter Type Care Provider Facility Start: 05-13-2025 End: 05-13-2025 Office outpatient visit 25 minutes Maldonado Raza MD Work Phone: [facility] [place] Comment on above: Physical decondition ing (Primary Dx); Encounter for immunization; Primary hypertension; Other hyperlipidemia; Hypothyroidism, unspecified type; Dyspnea on exertion; Congestive heart failure, unspecified HF chronicity, unspecified heart failure type (HCC); Hypoxia; Need for vaccination Start: 05-13-2025 End: 05-13-2025 ambulatory MALDONADO RAZA Facility:[facility] Start: 04-23-2025 End: 04-24-2025 Telephone encounter Maldonado Raza MD Work Phone: [facility] [place] Comment on above: Patient Question r/t kidney transplant Start: 04-17-2025 End: 04-17-2025 ambulatory ROLY FONTANA [facility] Start: 04-17-2025 End: 04-17-2025 Patient encounter status [facility] Work Phone: Start: 04-17-2025 End: 04-17-2025 Subsequent hospital visit by physician Mary Vázquez [facility] Comment on above: Pre-transplant evalu ation for kidney transplant Start: 03-12-2025 End: 03-12-2025 Refill Artemio Schafer MD Work Phone: [facility] [place] Comment on above: Refill Request Start: 02-20-2025 End: 02-20-2025 ambulatory FER DURON Facility:[id number] Start: 02-20-2025 End: 02-20-2025 Office outpatient visit 40 minutes Fer Duron MD Work Phone: 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) (Primary Dx); Diastolic congestive heart failure, unspecified HF chronicity (HCC); Hypertensive left ventricular hypertrophy with heart failure (HCC); Primary hypertension; Abnormal EKG; Hyperlipidemia, unspecified hyperlipidemia type; Type 2 diabetes mellitus with other specified complication, with long-term current use of insulin (HCC) Start: 02-06-2025 End: 02-06-2025 Office outpatient visit 25 minutes Maldonado Raza MD Work Phone: [facility] [place] Comment on above: Congestive heart jennifer lure, unspecified HF chronicity, unspecified heart failure type (HCC) (Primary Dx); ESRD on dialysis (HCC); Anemia of chronic renal failure, stage 5 (HCC); Hypoxia Start: 02-06-2025 End: 02-06-2025 ambulatory MALDONADO RAZA Facility:[facility] Start: 01-30-2025 Non-patient / Non-visit Dr. Kade lópez MD -[facility] Work Phone: Start: 01-29-2025 Non-patient / Non-visit Dr. Kade lópez MD -[facility] Work Phone: Start: 01-28-2025 ambulatory Waynerodrigomai Baezdinorah Facility:[facility] Start: 01-28-2025 Non-patient / Non-visit Dr. Lidia rodriguez MD -[facility] Start: 01-28-2025 ambulatory Maldonado Raza Facili ty:[facility] Start: 01-28-2025 End: 01-30-2025 Evaluation and management of inpatient Dr. Kade Ricketts MD -Progressive Care Unit Work Phone: Start: 01-13-2025 End: 01-13-2025 ambulatory LUNA THOMAS Facility:[facility] Start: 01-10-2025 End: 01-10-2025 Telephone encounter Luna Thomas MD Work Phone: Vascular Surg Dept Comment on above: Appointment Start: 01-02-2025 End: 01-02-2025 Office outpatient visit 25 minutes Christopher Snell MD Work Phone: Ophthalmology Comment on above: Controlled type 2 di abetes mellitus without complication, with long-term current use of insulin (HCC) (Primary Dx); Status post corneal transplant Start: 01-02-2025 End: 01-02-2025 Orders Only Luna Thomas MD Work Phone: [facility] Surg [facility] Comment on above: ESRD on dialysis (HC C) (Primary Dx) Start: 01-01-2025 End: 01-02-2025 Telephone encounter Luna Thomas MD Work Phone: V[facility] Surg [facility] Comment on above: surgery date Patient Update (Surg lesli ) Start: 12-31-2024 End: 12-31-2024 Telephone encounter Raul Duque MD Work Phone: Vascular Surgery Comment on above: Procedure (RUE fistu logram) Start: 12-31-2024 End: 12-31-2024 Patient encounter procedure Shay Lucio [place] [facility] Work Phone: Start: 12-31-2024 End: 12-31-2024 ambulatory Maldonado Raza Facility:[facility] Start: 12-30-2024 End: 12-30-2024 Telephone encounter Luna Thomas MD Work Phone: Vascular Surg Dept Comment on above: Patient Update ESRD (end stage kenneth l disease) (HCC) (Primary Dx) Start: 12-27-2024 End: 12-27-2024 ambulatory MILADYS VILLANUEVA [facility] Start: 12-20-2024 End: 12-20-2024 ambulatory MALDONADO BRAXTON [facility] Start: 12-20-2024 End: 12-20-2024 Encounter for other preprocedural examination [facility] Start: 12-20-2024 End: 12-20-2024 ambulatory MALDONADO HANNA TNELIUD [facility] Start: 12-19-2024 End: 12-19-2024 Telephone encounter Lakshmi Davies RN Work Phone: Vascular Surg Dept Comment on above: Dialysis Start: 12-18-2024 End: 12-18-2024 Orders Only Luna Thomas MD Work Phone: Vascular Surg Dept Comment on above: ESRD on dialysis (HC C) (Primary Dx) Start: 12-17-2024 End: 12-17-2024 Telephone encounter Maldonado Raza MD Work Phone: [facility] Comment on above: Appointment Start: 12-12-2024 End: 12-19-2024 E-mail encounter from caregiver Luna Thomas MD Work Phone: Vascular Surg Dept Start: 12-12-2024 End: 12-19-2024 Patient encounter procedure Luna Thomas MD Work Phone: Vascular Surg Dept Comment on above: Appointment Request Start: 12-05-2024 End: 12-05-2024 Telephone encounter Maldonado Raza MD Work Phone: [facility] [place] Comment on above: Medication Problem Start: 12-05-2024 End: 12-05-2024 ambulatory MALDONADO RAZA Facility:[facility] Start: 12-05-2024 End: 12-05-2024 Office outpatient visit 25 minutes Maldonado Raza MD Work Phone: [facility] [place] Comment on above: Controlled type 2 di abetes mellitus without complication, with long-term current use of insulin (HCC) (Primary Dx); Primary hypertension; Hypothyroidism, unspecified type; ESRD (end stage renal disease) ([facility]); Congestive heart failure, unspecified HF chronicity, unspecified heart failure type ([facility]); VT (ventricular tachycardia) ([facility]); Need for vaccination; Migraine without aura, not intractable, without status migrainosus; Cervical cancer screening Start: 12-03-2024 End: 12-03-2024 ambulatory IFEOMA DEL CID Facility:[facility] Start: 12-03-2024 End: 12-03-2024 Subsequent hospital visit by physician [facility] Work Phone: Radiology Comment on above: Abnormal screening m ammogram [R92.8] Start: 11-26-2024 End: 11-27-2024 Subsequent hospital visit by physician [facility] M[facility] Comment on above: LVH (left ventricula r hypertrophy) due to hypertensive disease, without heart failure; Kidney transplant candidate; Coronary arteriosclerosis Refill Request Start: 11-26-2024 End: 11-26-2024 [facility] Start: 11-25-2024 End: 11-25-2024 Refill Maldonado Raza MD Work Phone: [facility] [place] Comment on above: Refill Request Start: 08-26-2024 End: 08-31-2024 Refill Maldonado Raza MD Work Phone: [facility] [place] Comment on above: Refill Request Start: 08-15-2024 End: 08-15-2024 ambulatory Asuncion Rossi RN Review Appraiser Management Comment on above: CDM (Community Monit oring Outreach Call) Start: 07-31-2024 End: 07-31-2024 ambulatory Asuncion Rossi RN Review Appraiser Management Comment on above: CDM (Community Monit oring Outreach Call) Start: 07-30-2024 End: 07-30-2024 ambulatory Asuncion Rossi RN Review Appraiser Management Comment on above: CDM (Community Monit oring Outreach Call) Start: 07-25-2024 End: 07-25-2024 Office outpatient visit 25 minutes Kade Jones MD Work Phone: [facility] [place] Comment on above: End stage renal dise ase (Multi) (Primary Dx); Encounter for therapeutic drug level monitoring Start: 07-25-2024 End: 07-25-2024 ambulatory MALDONADO RAZA [facility] Start: 07-25-2024 End: 07-25-2024 ambulatory ROLY FONTANA [facility] Start: 07-25-2024 End: 07-25-2024 Patient encounter status [address] Work Phone: Start: 07-25-2024 End: 07-25-2024 Subsequent hospital visit by physician [address] [place] Comment on above: Pre-transplant evalu ation for kidney transplant; Transient ischemic attack, remote, resolved; Other specified symptoms and signs involving the circulatory and respiratory systems Start: 07-23-2024 Encounter for prepro cedural cardiovascular examination MURTAZA CASTELLON [facility] Start: 07-23-2024 End: 07-23-2024 Office outpatient new 45 minutes Murtaza Castellon MD Work Phone: [facility] [place] Comment on above: Preop cardiovascular exam (Primary Dx); LVH (left ventricular hypertrophy) due to hypertensive disease, without heart failure; Kidney transplant candidate; Coronary arteriosclerosis Start: 07-23-2024 End: 07-23-2024 ambulatory MURTAZA CASTELLON [facility] Start: 07-23-2024 End: 07-23-2024 Encounter for preprocedural cardiovascular examination MURTAZA CASTELLON [facility] Start: 07-23-2024 End: 07-23-2024 Patient encounter status Murtaza Castellon MD Work Phone: [facility] Start: 07-16-2024 End: 07-16-2024 ambulatory MALDONADO RAZA [facility] Start: 07-11-2024 End: 07-11-2024 Patient encounter status [facility] Work Phone: Start: 07-11-2024 End: 07-11-2024 Subsequent hospital visit by physician [facility] [id number] [facility] Comment on above: Pre-transplant evalu ation for kidney transplant Start: 07-11-2024 End: 07-11-2024 ambulatory ROLY FONTANA [facility] Start: 07-11-2024 End: 07-11-2024 ambulatory IFEOMA DEL CID Facility:[facility] Start: 07-11-2024 End: 07-11-2024 Subsequent hospital visit by physician Screen Mamm[facility] Comment on above: Encounter for screen ing mammogram for breast cancer [Z12.31] Start: 07-10-2024 End: 07-10-2024 ambulatory LUNA THOMAS Facility:[facility] Start: 07-10-2024 End: 07-10-2024 Patient encounter procedure Luna Thomas MD Work Phone: Vascular Surg Dept Comment on above: Peripheral arterial disease (HCC) (Primary Dx); ESRD on dialysis (HCC) Start: 07-10-2024 End: 07-10-2024 ambulatory LUNA THOMAS Facility:[facility] Start: 07-02-2024 End: 07-02-2024 ambulatory Asuncion Rossi RN Review Appraiser Management Comment on above: CDM (Community Monit oring Outreach Call ) Start: 06-25-2024 End: 06-25-2024 ambulatory Asuncion Rossi RN Review Appraiser Management Comment on above: CDM (Community Monit oring Outreach Call ) Start: 06-13-2024 End: 06-13-2024 ambulatory MALDONADO RAZA Facility:[facility] Start: 06-13-2024 End: 06-13-2024 Patient encounter procedure Maldonado Raza MD Work Phone: [facility] [place] Comment on above: Medicare annual well ness visit, subsequent (Primary Dx); Encounter for immunization; Arteriovenous fistula, acquired (HCC); Screening for depression; Encounter for screening examination for other mental health and behavioral disorders; Controlled type 2 diabetes mellitus without complication, with long-term current use of insulin (HCC); Primary hypertension; Mixed hyperlipidemia; Congestive heart failure, unspecified HF chronicity, unspecified heart failure type (HCC); ESRD on dialysis (HCC); Secondary hyperparathyroidism of renal origin (HCC) Start: 06-11-2024 End: 06-11-2024 Patient encounter procedure Mandie Younger APRN.CNP Work Phone: [facility] Comment on above: Congestive heart jennifer lure, unspecified HF chronicity, unspecified heart failure type (HCC) (Primary Dx); ASCVD (arteriosclerotic cardiovascular disease); Primary hypertension; Mixed hyperlipidemia; History of echocardiogram; History of cardiovascular stress test; History of carotid artery stenosis; History of diabetes mellitus; Former smoker Start: 06-11-2024 End: 06-11-2024 ambulatory MANDIE YOUNGER Facility:[id number] Start: 06-04-2024 End: 06-05-2024 Telephone encounter Christopher Snell MD Work Phone: Ophthalmology Comment on above: Appointment Start: 05-22-2024 End: 05-22-2024 ambulatory Asuncion Rossi RN Review Appraiser Management Comment on above: CDM ([facility] Outreach Call ) Start: 05-16-2024 End: 05-16-2024 ambulatory LUNA THOMAS Facility:[facility] Start: 05-15-2024 End: 05-15-2024 Telephone encounter Luna Thomas MD Work Phone: Vascular Surg Dept Comment on above: Appointment Patient Question Start: 05-13-2024 End: 05-13-2024 ambulatory [facility] [place] Start: 05-13-2024 End: 05-13-2024 Patient encounter procedure Cony Encarnacion [facility] [place] Comment on above: AWILAD Start: 05-10-2024 End: 05-13-2024 Telephone encounter Luna Thomas MD Work Phone: Vascular Surg Dept Comment on above: Appointment Refill Request Start: 05-08-2024 End: 05-08-2024 Admission to same day surgery center Anesthesia Clearance Work Phone: [facility] Work Phone: Start: 05-08-2024 End: 05-08-2024 Patient encounter procedure Anesthesia Clearance Work Phone: Cardiothoracic Comment on above: Encounter for preope rative anesthesiology assessment for vascular surgery (Primary Dx) Start: 05-08-2024 End: 05-08-2024 Patient encounter procedure Luna Thomas MD Work Phone: Vascular Surg Dept Comment on above: ESRD on dialysis (HC C) (Primary Dx) Start: 05-08-2024 End: 05-08-2024 ambulatory Luna Thomas MD Work Phone: Vascular Surg Dept Comment on above: Patient Education Start: 05-01-2024 End: 05-01-2024 Orders Only Luna Thomas MD Work Phone: Vascular Surg Dept Comment on above: ESRD on dialysis (HC C) (Primary Dx) Start: 04-24-2024 End: 04-25-2024 ambulatory Syeda Frost RN Review Appraiser Management Comment on above: Community Monitoring Outreach Start: 04-22-2024 End: 04-22-2024 Telephone encounter Luna Thomas MD Work Phone: Vascular Surg Dept Comment on above: Consult (/) Start: 04-16-2024 End: 04-16-2024 Patient encounter status [facility] Work Phone: Start: 04-16-2024 End: 04-16-2024 Subsequent hospital visit by physician Mary Daigle N[facility] Admin Room 1 [facility] Comment on above: Arrived Pre-transplant evalu ation for kidney transplant; Coronary artery disease involving [place] heart without angina pectoris, unspecified vessel or lesion type Pre-transplant evalu ation for kidney transplant Start: 04-10-2024 ambulatory [facility] Tierney [facility] [place] Start: 04-10-2024 Patient encounter procedure Tea Tierney MA [facility] [place] Comment on above: Population Health Na vigation Outreach ([facility] ) Start: 03-29-2024 ambulatory Syeda Frost RN Am [facility] Care Management Comment on above: Community Monitoring Outreach Start: 02-29-2024 End: 02-29-2024 Patient encounter procedure Maldonado Raza MD Work Phone: [facility] [place] Comment on above: Controlled type 2 di abetes mellitus without complication, with long-term current use of insulin (HCC) (Primary Dx); Primary hypertension; Other hyperlipidemia; Hypothyroidism, unspecified type; ASCVD (arteriosclerotic cardiovascular disease); ESRD on dialysis (HCC); Congestive heart failure, unspecified HF chronicity, unspecified heart failure type (HCC); VT (ventricular tachycardia); Secondary hyperparathyroidism of renal origin (HCC); Hypertrophic cardiomyopathy (HCC) Start: 02-26-2024 ambulatory Syeda Frost RN [facility] Comment on above: Community Monitoring Outreach Start: 02-13-2024 End: 02-13-2024 Patient encounter procedure Héctor Cruz MD Work Phone: Ophthalmology Comment on above: Status post corneal transplant (Primary Dx); PCO (posterior capsular opacification), left Start: 01-24-2024 ambulatory Syeda Frost RN [facility] Comment on above: Community Monitoring Outreach Start: 01-18-2024 Encounter for other preprocedural examination RAUL DUQUE [facility] Start: 01-18-2024 End: 01-19-2024 ambulatory FELICIA AVENDANO Facility:[facility] Start: 01-17-2024 Orders Only Felicia Avendano MD Work Phone: Vascular Surgery Comment on above: Pre-op testing (Prim nuvia Dx) Procedure Start: 01-17-2024 Patient encounter status Felicia Avendano MD Work Phone: [facility] Start: 01-11-2024 Telephone encounter Dialysis Vas cular Surg Dept Comment on above: Dialysis ESRD (end stage kenneth l disease) (HCC) (Primary Dx) Procedure Start: 01-09-2024 Refill Maldonado cantu MD Work Phone: [facility] [place] Comment on above: Refill Request Eye drops Start: 01-08-2024 ambulatory Cony Desai DEMETRI [facility]at [employer] [place] Comment on above: Community Monitoring Outreach Start: 01-08-2024 Patient encounter procedure Cony dodd MA [facility] [place] Comment on above: DAVITA Start: 12-11-2023 Refill Héctor urena MD Work Phone: [facility] [place] Comment on above: Refill Request DAVITA Community Monitoirng Outreach Start: 12-07-2023 End: 12-07-2023 Patient encounter procedure Dave Pickett DO Work Phone: [facility] Cardiology Comment on above: Abnormal EKG (Primar y Dx); ASCVD (arteriosclerotic cardiovascular disease); Primary hypertension; Mixed hyperlipidemia; Congestive heart failure, unspecified HF chronicity, unspecified heart failure type (HCC); Controlled type 2 diabetes mellitus without complication, with long-term current use of insulin (HCC); Stage 5 chronic kidney disease on chronic dialysis (HCC); History of echocardiogram; History of cardiovascular stress test; History of left heart catheterization (LHC); History of carotid artery stenosis; Former smoker Start: 11-22-2023 End: 11-22-2023 Patient encounter procedure Héctor Cruz MD Work Phone: Ophthalmology Comment on above: Status post corneal transplant (Primary Dx); Abrasion of left cornea, initial encounter; Neurotrophic keratoconjunctivitis of left eye Start: 11-21-2023 Telephone encounter Héctor Cruz MD Work Phone: Ophthalmology Comment on above: Appointment Start: 11-16-2023 End: 11-16-2023 Patient encounter procedure Héctor Cruz MD Work Phone: Ophthalmology Comment on above: Status post corneal transplant (Primary Dx); 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 Start: 11-10-2023 Telephone encounter Héctor Cruz MD Work Phone: Ophthalmology Comment on above: Patient Question Start: 11-08-2023 ambulatory Syeda Frost RN Am bulatory Care Management Comment on above: Community Monitoring Outreach Start: 10-26-2023 End: 10-26-2023 Subsequent hospital visit by physician Analia [facility] [place] Work Phone: Radiology Comment on above: Essential hypertensi on [I10] Start: 10-26-2023 End: 10-26-2023 Patient encounter procedure Maldonado Raza MD Work Phone: Internal Medicine [place] Comment on above: Preoperative examina tion (Primary Dx); Hypothyroidism, unspecified type; Primary hypertension; Other hyperlipidemia; ESRD (end stage renal disease) ([facility]); ASCVD (arteriosclerotic cardiovascular disease); Controlled type 2 diabetes mellitus without complication, with long-term current use of insulin ([facility]); History of CHF (congestive heart failure); Heart murmur, systolic; Idiopathic corneal edema of both eyes Start: 10-26-2023 End: 10-26-2023 Preprocedural examination done Maldonado Raza MD Work Phone: [facility] Work Phone: Start: 10-13-2023 Telephone encounter Héctor Cruz MD Work Phone: Ophthalmology Comment on above: Schedule Surgery Start: 10-05-2023 ambulatory Syeda Frost RN Am bulatory Care Management Comment on above: Community Monitoring Outreach Start: 09-19-2023 End: 09-19-2023 Patient encounter status [address] Work Phone: Start: 09-19-2023 End: 09-19-2023 Subsequent hospital visit by physician Tamia Koroma [facility] Comment on above: Encounter for other preprocedural examination Start: 09-18-2023 End: 09-18-2023 Patient encounter status [facility] Work Phone: Start: 09-18-2023 End: 09-18-2023 Subsequent hospital visit by physician Tamia Sharif [facility] Comment on above: Encounter for other preprocedural examination; Cardiomyopathy in diseases classified elsewhere (CMS/HCC) Start: 09-18-2023 End: 09-19-2023 ambulatory [facility] Start: 09-18-2023 End: 09-18-2023 Encounter for other preprocedural examination [facility] Start: 07-28-2023 ambulatory Syeda Frost RN Am bulatory Care Management Comment on above: Community Monitoring Outreach Start: 07-18-2023 End: 07-18-2023 ambulatory RAUL DUQUE Facility:[facility] Start: 07-17-2023 Telephone encounter Raul Duque MD Work Phone: Vascular Surgery Comment on above: Procedure ESRD (end stage kenneth l disease) (HCC) (Primary Dx) Start: 07-03-2023 Telephone encounter Medardo abllard MD Work Phone: Vascular Surgery Comment on above: Procedure Start: 06-29-2023 End: 06-29-2023 Patient encounter procedure Maldonado Raza MD Work Phone: Internal Medicine [place] Comment on above: Hyperkalemia (Primar y Dx); Hypothyroidism, unspecified type; Abnormal EKG; Primary hypertension; Controlled type 2 diabetes mellitus without complication, with long-term current use of insulin (HCC); Need for COVID-19 vaccine Start: 06-27-2023 Telephone encounter Danita sanford MD Work Phone: DR FIORELLA GARCIA [facility] Comment on above: patient outreach Start: 06-27-2023 End: 06-27-2023 Patient encounter procedure Héctor Cruz MD Work Phone: Ophthalmology Comment on above: Idiopathic corneal e landon, bilateral (Primary Dx); Controlled type 2 diabetes mellitus without complication, with long-term current use of insulin (HCC); Pseudophakia; PCO (posterior capsular opacification), left; Senile nuclear cataract, right Start: 06-22-2023 ambulatory [facility] Start: 06-22-2023 Telephone encounter Medardo ballard MD Work Phone: Vascular Surgery Comment on above: Schedule Surgery Transition Of Care ( TCM initial outreach hospital discharge 06/21/23) Start: 06-20-2023 Telephone encounter Aram Eduardo MD Work Phone: [place] Provider Adult Comment on above: Hospital To Hospital (Sandy Bhatti is a 58 year old female, fistula gram scheduled today. Pt. Is complaining of SOB Pre op EKG possible inferior STEMI, housing quality standard inspector dr. Barros was called and said no STEMI . And the EKG changes related to fluid overload. BMP K 6.2 . Procedure was canceled , nephrology will be called for HD /) Start: 06-20-2023 End: 06-21-2023 Evaluation and management of inpatient MALDONADO RAZA Facility:[facility] Start: 06-19-2023 Telephone encounter Medardo ballard MD Work Phone: Vascular Surgery Comment on above: Procedure ESRD (end stage kenneth l disease) (HCC) (Primary Dx) Start: 06-12-2023 End: 06-12-2023 Patient encounter procedure Ifeoma Older HAZARDOUS MATERIALS HANDLER.HIGH FREQUENCY MILL OPERATOR Work Phone: Internal Medicine [place] Comment on above: Controlled type 2 di abetes mellitus without complication, with long-term current use of insulin (HCC) (Primary Dx); ESRD on dialysis (HCC); Encounter for screening mammogram for breast cancer Start: 06-12-2023 Telephone encounter Maldonado singh MD Work Phone: [facility] [place] Start: 06-06-2023 Orders Only Medardo urena MD Work Phone: Vascular Surgery Comment on above: ESRD (end stage kenneth l disease) (HCC) (Primary Dx) AVF ISSUE Community Monitoring Outreach Start: 05-30-2023 Patient encounter procedure No PCP N one [id number] [place] [address] Work Phone: Start: 05-28-2023 Refill Maldonado cantu MD Work Phone: Internal Medicine [place] Comment on above: Refill Request Start: 04-15-2023 Refill Maldonado cantu MD Work Phone: [facility] Medicine [place] Comment on above: Refill Request Start: 04-11-2023 ambulatory Syeda Frost RN Am bulatory Care Management Comment on above: Community Monitoring Outreach Start: 04-10-2023 End: 04-11-2023 ambulatory MEDARDO ROGEL Facility:[facility] Start: 04-07-2023 Orders Only Medardo urena MD Work Phone: Vascular Surgery Comment on above: ESRD (end stage kenneth l disease) (HCC) (Primary Dx) Preop testing (Prima ry Dx) Procedure (RUE fistu lagram) Start: 04-07-2023 Patient encounter status Medardo oRgel MD Work Phone: [facility] Start: 04-05-2023 Telephone encounter Medardo ballard MD Work Phone: Vascular Surgery Comment on above: ACCESS ISSUE ESRD (end stage kenneth l disease) (HCC) (Primary Dx) Start: 03-27-2023 Non-patient / Non-visit Dr. Lupe Raza Work Phone: [facility] Start: 03-27-2023 End: 03-27-[address] Maldonado Raza Work Phone: [facility] Work Phone: Start: 03-27-2023 End: 03-27-[address] Maldonado Raza Work Phone: [facility] Work Phone: Start: 02-24-2023 ambulatory Syeda Frost RN Am bulatory Care Management Comment on above: Community Monitoring Outreach Start: 02-01-2023 End: 02-01-2023 ambulatory Syeda Frost RN Review Appraiser Management Comment on above: Community Monitoring Outreach Start: 02-01-2023 End: 02-01-2023 SAME DAY STAY YOUSUF CROW DO [facility] Start: 01-02-2023 ambulatory Syeda Frost RN Am bulatory Care Management Comment on above: Community Monitoring Outreach Start: 12-19-2022 End: 12-19-2022 Patient encounter procedure Lisa Heredia RASHAD Work Phone: General Surgery Comment on above: Tubular adenoma (Laura cline Dx); Family history of colon cancer; Tortuous colon Start: 12-19-2022 Telephone encounter Lisa banuelos RASHAD Work Phone: General Surgery Comment on above: Information (Results to ) Start: 12-12-2022 Refill Maldonado cantu MD Work Phone: [facility] [place] Comment on above: Refill Request Start: 12-07-2022 ambulatory Syeda Frost RN Am bulatory Care Management Comment on above: Community Monitoring Outresach Start: 11-15-2022 ambulatory [facility] ity:[facility] Start: 11-15-2022 Encounter for other preprocedural examination [facility] Start: 11-15-2022 End: 11-15-2022 Preprocedural examination done Ge Fuller MD Work Phone: [facility] Endoscopy Start: 11-15-2022 End: 11-15-2022 Subsequent hospital visit by physician Ge Fuller MD Work Phone: [facility] Endoscopy Comment on above: Special screening fo r malignant neoplasms, colon [Z12.11] Start: 11-14-2022 ambulatory Syeda Frost RN Am bulatory Care Management Comment on above: Community Monitoring Outreach Start: 11-11-2022 Telephone encounter Maldonado singh MD Work Phone: Internal Medicine [place] Comment on above: Medication Question Start: 10-25-2022 ambulatory Tea Tierney [facility] [place] Comment on above: Population Health Na vigation Outreach ([facility] PCSA) Start: 10-13-2022 ambulatory Syeda Frost RN Am bulatory Care Management Comment on above: Community Monitoring Outreach Start: 09-20-2022 End: 09-20-2022 Patient encounter procedure Ifeoma Older HAZARDOUS MATERIALS HANDLER.HIGH FREQUENCY MILL OPERATOR Work Phone: Internal Medicine [place] Comment on above: Controlled type 2 di abetes mellitus without complication, with long-term current use of insulin (HCC) (Primary Dx); Urinary tract infection without hematuria, site unspecified; Essential hypertension; Hypothyroidism, unspecified type; Encounter for immunization; ESRD on dialysis (HCC); Depression, unspecified depression type; Arteriovenous fistula, acquired (HCC) Encounter for screen ing for malignant neoplasm of colon (Primary Dx); ESRD (end stage renal disease) (HCC); VT (ventricular tachycardia); ASCVD (arteriosclerotic cardiovascular disease); Family history of colon cancer Start: 09-19-2022 End: 09-19-2022 Emergency department patient visit Dr. Maldonado Raza Work Phone: [facility]-Emergency Department Start: 09-13-2022 Refill Maldonado cantu MD Work Phone: Internal Medicine [place] Comment on above: Refill Request Start: 09-12-2022 Telephone encounter Raul Duque MD Work Phone: Vascular Surgery Comment on above: Procedure Start: 09-08-2022 Refill Maldonado cantu MD Work Phone: Internal Medicine [place] Comment on above: Refill Request Start: 09-07-2022 Telephone encounter Medardo ballard MD Work Phone: Vascular Surgery Comment on above: Appointment ESRD (end stage kenneth l disease) (HCC) (Primary Dx) Start: 09-06-2022 ambulatory Syeda Frost RN Am bulatory Care Management Comment on above: Community Monitoring Outreach Start: 08-23-2022 Telephone encounter Maldonado singh MD Work Phone: Family [facility] [place] Comment on above: Cough; Fever Start: 08-04-2022 ambulatory Syeda Frost RN Am bulatory Care Management Comment on above: Community Monitoring Outreach Start: 07-06-2022 Telephone encounter Helen matthews APRN.CNM Work Phone: OB/Gynecology Comment on above: Results Start: 07-05-2022 Documentation procedure Mammog dmitry Coordinator [facility] Start: 07-05-2022 Letter encounter Mammography Coordinator [facility] Department Start: 07-05-2022 End: 07-05-2022 Patient encounter procedure Helen Cuellar HAZARDOUS MATERIALS HANDLER.CNM Work Phone: OB/Gynecology Comment on above: Encounter for gyneco logical examination (general) (routine) without abnormal findings (Primary Dx); Vaginal discharge Start: 07-05-2022 End: 07-05-2022 Patient encounter status Helen Cuellar HAZARDOUS MATERIALS HANDLER.CNM Work Phone: OB/Gynecology Start: 07-05-2022 End: 07-05-2022 Subsequent hospital visit by physician Screen Mammo [facility] Comment on above: Encounter for screen ing mammogram for breast cancer [Z12.31] Start: 07-04-2022 ambulatory Santosh Landa RN Am bulatory Care Management Comment on above: Community Monitoring Outreach Start: 06-21-2022 End: 06-21-2022 Emergency department patient visit Dr. Maldonado Raza Work Phone: [facility]-Emergency Department Start: 06-21-2022 End: 06-21-[address] Maldonado Raza Work Phone: [facility] Start: 06-20-2022 Telephone encounter Medardo ballard MD Work Phone: Cardiology Comment on above: Patient Update Start: 06-16-2022 ambulatory Santosh Landa RN Am bulatory Care Management Comment on above: Community Monitoring Outreach Start: 06-08-2022 Telephone encounter Maldonado singh MD Work Phone: Internal Medicine [place] Comment on above: Results Procedure Instructio ns Start: 06-07-2022 Refill Maldonado cantu MD Work Phone: Internal Medicine [place] Comment on above: Refill Request Start: 06-01-2022 Orders Only Medardo urena MD Work Phone: Vascular Surgery Comment on above: ESRD (end stage kenneth l disease) (HCC) (Primary Dx) Dialysis Start: 05-02-2022 End: 05-02-2022 Patient encounter procedure Maldonado Raza MD Work Phone: Internal Medicine [place] Comment on above: Screening for cervic al cancer (Primary Dx); Controlled type 2 diabetes mellitus without complication, with long-term current use of insulin (HCC); ESRD on dialysis (HCC) Start: 05-02-2022 Telephone encounter Maldonado singh MD Work Phone: Internal Medicine [place] Comment on above: Medication Problem Start: 04-22-2022 ambulatory Santosh Landa RN Am bulatory [facility] Comment on above: Community Monitoring Outreach Start: 04-19-2022 ambulatory Santosh Landa RN Am bulatory [facility] Comment on above: Community Monitoring Outreach Start: 04-10-2022 Chart Update No PCP None [facility] Work Phone: Start: 04-04-2022 ambulatory Santosh Landa RN Am bulatory [facility] Comment on above: Community Monitoring Outreach (ESRD Telephonic CDM Outreach) Start: 03-30-2022 Chart Update No PCP None [facility] Work Phone: Start: 03-29-2022 Office outpatient ne w 60 minutes No PCP None VP-[facility] Work Phone: Start: 03-29-2022 Patient encounter procedure No PCP N one [facility] Work Phone: Start: 03-18-2022 ambulatory Santosh Landa RN Am bulatory [facility] Comment on above: Community Monitoring Outreach (ESRD CDM Outreach) Start: 03-10-2022 Refill Maldonado cantu MD Work Phone: OB/Gynecology Start: 02-17-2022 ambulatory Santosh Landa RN Am bulatory Care Management Comment on above: Community Monitoring Outreach (ESRD Telephonic CDM Outreach) Start: 02-14-2022 ambulatory Santosh Landa RN Am bulatory Care Management Comment on above: Community Monitoring Outreach (ESRD Telephonic CDM Outreach) Start: 02-09-2022 ambulatory Maldonado cantu MD Work Phone: [facility] [place] Start: 01-27-2022 ambulatory Santosh Landa RN Am bulatory Care Management Comment on above: Community Monitoring Outreach (ESRD Telephonic CDM Outreach) Start: 01-13-2022 Refill Maldonado cantu MD Work Phone: Internal Medicine [place] Comment on above: Refill Request Start: 01-12-2022 ambulatory Santosh Landa RN Am bulatory Care Management Comment on above: Community Monitoring Outreach (ESRD CDM Outreach) Start: 01-10-2022 Telephone encounter Harvey petersen [facility] Comment on above: Referral - Kidney Tx p Start: 01-07-2022 Telephone encounter Harvey petersen RN Transplant Center Comment on above: Referral - Kidney Tx p Start: 12-28-2021 ambulatory Santosh Landa RN Am bulatory Care Management Comment on above: Community Monitoring Outreach (ESRD Telephonic CDM Outreach ) Start: 12-28-2021 Telephone encounter Harvey petersen RN Transplant Center Comment on above: Referral - Kidney Tx p Start: 12-27-2021 ambulatory Santosh Landa RN Am bulatory Care Management Comment on above: Community Monitoring Outreach (ESR Telephonic CDM Outreach) Start: 12-21-2021 Telephone encounter Von kim PA-C Work Phone: Urology Comment on above: Results Start: 12-10-2021 ambulatory Santosh Landa RN Am bulatory Care Management Comment on above: Comunity Monitoring Outreach (ESRD Telephonic CDM Outreach) Start: 12-09-2021 Telephone encounter Maldonado singh MD Work Phone: Internal Medicine [place] Comment on above: Orders Start: 12-06-2021 End: 12-06-2021 Subsequent hospital visit by physician [facility] (I-[facility]) Work Phone: Cat Scan Comment on above: Gross hematuria [R31 .0] Start: 11-30-2021 End: 11-30-2021 Patient encounter procedure Von Chaney PA-C Work Phone: Urology Comment on above: Acute cystitis with hematuria (Primary Dx); Acute left flank pain; Gross hematuria; Other symptoms and signs involving the genitourinary system Start: 07-24-2018 Evaluation and manag ement of inpatient Héctor T Javier Facility:[facility] Start: 05-16-2018 Evaluation and manag ement of inpatient Héctor T Javier Facility:[facility] Start: 05-11-2018 End: 05-15-2018 Evaluation and management of inpatient Andersonpapo Wellingtonan Facility:[facility] Start: 05-01-2018 Evaluation and manag ement of inpatient Héctor T Javier Facility:[facility] Start: 03-20-2018 Evaluation and manag ement of inpatient Héctor T Javier Facility:[facility] Start: 02-13-2018 End: 02-16-2018 Evaluation and management of inpatient Jepapod Y Asfoura Facility:[facility] Start: 12-13-2017 Evaluation and manag ement of inpatient Héctor T Javier Facility:[facility] Start: 12-05-2017 Evaluation and manag ement of inpatient Héctor T Javier Facility:[facility] Start: 11-27-2017 Ambulatory HÉCTOR T JAVIER Facility :[facility] Start: 10-04-2017 Evaluation and manag ement of inpatient Héctor T Javier Facility:[facility] Start: 09-18-2017 Ambulatory ANTHONYD Y ASFOURA Facilit y:UNI Patient encounter status No PCP None [facility] Work Phone: Procedures Date Procedure Procedure Detail Performing Clinician Start: 04-17-2025 Pulmonary stress testing Roly Fontana MD Work Phone: Start: 02-20-2025 Ecg routine ecg w/least 12 lds i&r only Fer Duron MD Work Phone: Start: 01-30-[address] Maldonado Raza MD Work Phone: Start: 01-29-2025 Serum inorganic phosphate measurement Dr. Maldonado Raza MD Work Phone: Start: 01-28-2025 SARS-CoV-2, Influenza & RSV (PCR) Dr. Maldonado Raza MD Work Phone: Start: 01-28-2025 X-ray of chest, PA and lateral views Dr. Maldonado Raza MD Work Phone: Start: 01-28-[address] Maldonado Raza MD Work Phone: Start: 01-02-2025 OCT ANGIOGRAPHY OU (BOTH EYES) Christopher Snell MD Work Phone: Start: 01-02-2025 End: 01-02-2025 Computerized ophthalmic imaging retina Christopher Snell MD Work Phone: Start: 12-19-2024 Lipid 1996 panel - Serum or Plasma [facility] Rm Start: 12-03-2024 Us breast uni real time with image limited Ifeoma Del Cid APRN.HIGH FREQUENCY MILL OPERATOR Work Phone: Start: 12-03-2024 End: 12-03-2024 Digital breast tomosynthesis bilateral Ifeoma Del Cid APRN.HIGH FREQUENCY MILL OPERATOR Work Phone: Start: 11-26-2024 Cardiac mri w/wo contrast & further seq Murtaza Castellon MD Work Phone: Start: 07-25-2024 Duplex scan extracranial art compl bi study Roly Fontana MD Work Phone: Start: 07-22-2024 H/O: colostomy Colostomy status (Multi) Murtaza Castellon MD Work Phone: Start: 07-22-2024 H/O: hysterectomy History of hysterectomy Murtaza Mckee Work Phone: Start: 07-22-2024 History of reduction of breast History of reduction mammoplasty Murtaza Castellon MD Work Phone: Start: 07-11-2024 Mammography Murtaza Castellon MD Work Phone: Start: 06-13-2024 PFIZER-BIONTAccelereach COVID-19 VACCINE AGE 12+ YR (COMIRNATY) Maldonado Raza MD Work Phone: Start: 06-13-2024 Adult depression screening assessment Maldonado Raza MD Work Phone: Start: 06-11-2024 Ecg routine ecg w/least 12 lds i&r only Mandie Younger APRN.HIGH FREQUENCY MILL OPERATOR Work Phone: Start: 04-16-2024 Cv strs tst xers&/or rx cont ecg w/o i&r Roly Fontana MD Work Phone: Start: 04-16-2024 Myocardial spect multiple studies Roly Fontana MD Work Phone: Start: 02-29-2024 Thyrotropin [Units/volume] in Serum or Plasma [facility] 1 Start: 02-13-2024 Cmptr ophthalmic dx img ant segmt w/i&r uni/bi Héctor Cruz MD Work Phone: Start: 12-07-2023 Ecg routine ecg w/least 12 lds i&r only Dave Pickett DO Work Phone: Start: 11-22-2023 Cmptr ophthalmic dx img ant segmt w/i&r uni/bi Héctor Cruz MD Work Phone: Start: 11-16-2023 Injx anterior chamber eye air/liquid spx Héctor Cruz MD Work Phone: Start: 11-16-2023 Cmptr ophthalmic dx img ant segmt w/i&r uni/bi Randell Reeves MD Work Phone: Start: 11-16-2023 Cmptr ophthalmic dx img ant segmt w/i&r uni/bi Héctor Cruz MD Work Phone: Start: 10-26-2023 Radiologic exam chest 2 views Maldonado Raza MD Work Phone: Start: 09-19-2023 NUCLEAR STRESS TEST ROLY FONTANA Start: 09-18-2023 TRANSTHORACIC ECHO (TTE) COMPLETE ROLY FONTANA Start: 09-18-2023 Echo tthrc r-t 2d w/wom-mode compl spec&colr d Roly Fontana MD Work Phone: Start: 06-29-2023 PFIZER-BIONTECH COVID-19 VACCINE ( SEASON) AGE 12+ YR Maldonado Raza MD Work Phone: Start: 06-27-2023 Computerized corneal topography uni/bi Héctor Cruz MD Work Phone: Start: 06-27-2023 End: 06-27-2023 Computerized ophthalmic imaging retina Héctor Cruz MD Work Phone: Start: 06-20-2023 Antibody screen RAUL DUQUE Comment on above: Order Comment: Specimen Type: BLOOD SPEC IMENOrdering Facility: [facility] Address: [address] [place] [address] Performed By: #### T SCR ####JOSE BLOOD BANKCLIA [id number] [place] [address] [place] Start: 11-15-2022 Gluc bld gluc mntr dev cleared fda spec home use Nikhil Dinero MD Work Phone: Start: 11-15-2022 Colonoscopy flx dx w/collj spec when pfrmd Lisa Heredia PA-C Work Phone: Start: 11-15-2022 Gluc bld gluc mntr dev cleared fda spec home use Nikhil Dinero MD Work Phone: Start: 11-15-2022 Colonoscopy Ge Fuller MD Work Phone: Start: 09-20-2022 [facility]ER[facility] COVID-19 PRIMARY SERIES VACCINE, AGE 12+ YR Ifeoma Older HAZARDOUS MATERIALS HANDLER.HIGH FREQUENCY MILL OPERATOR Work Phone: Start: 09-20-2022 INFLUENZA VACCINE QUADRIVALENT 6 MO - 64 YRS IM Ifeoma Older HAZARDOUS MATERIALS HANDLER.HIGH FREQUENCY MILL OPERATOR Work Phone: Start: 09-19-2022 CT of abdomen and pelvis without contrast Dr. Maldonado Raza Work Phone: Start: 07-05-2022 End: 07-05-2022 Mammography Bulk Order Provider Start: 12-06-2021 Ct abdomen & pelvis w/o contrast material Maldonado Raza MD Work Phone: Start: 11-30-2021 Urnls dip stick/tablet rgnt auto w/o microscopy Von Chaney PA-C Work Phone: Start: 05-05-[address] (I-Stat) Work Phone: Start: 05-15-2018 Antibody screen Héctor Herrera Comment on above: Order Comment: [place]: Start: 05-11-2018 Electrocardiogram Héctor Herrera Start: 05-10-[address] (I-Stat) Work Phone: Start: 02-13-2018 Ecg routine ecg w/least 12 lds i&r only Héctor Herrera Start: 10-04-2017 Antibody screen Héctor Herrera Comment on above: Order Comment: [place]: MPatient transfus ed or in the past 3 months? NOIs This Patient Going To Surgery? YSurgery Date: 10/04/17 Start: 10-04-2017 Ecg routine ecg w/least 12 lds i&r only Héctor Herrera Start: 09-05-2017 Arteriovenous fistula (morphologic abnormality) YOUSUF CROW DO Comment on above: left Start: 01-03-2007 Colostomy YOUSUF TRISTIN DO Comment on above: reversal Start: 01-03-2006 Colostomy YOUSUF TRISTIN DO Start: 01-03-1991 Hysterectomy YOUSUF TRISTIN DO Start: 01-04-1984 Appendectomy YOUSUF CROW DO Start: 01-04-1984 Cholecystectomy YOUSUF TRISTIN DO Start: 01-03-1980 Reduction mammoplasty, bilateral YOUSUF TRISTIN DO Arteriovenous anastomosis No PCP None Cholecystectomy No PCP None Closure of colostomy No PCP None Colostomy No PCP None Exploratory laparotomy No PC P None H/O: cornea recipient Status pos t corneal transplant Héctor Cruz MD Work Phone: H/O: cornea recipient Status pos t corneal transplant Héctor Cruz MD Work Phone: H/O: cornea recipient Status pos t corneal transplant Héctor Cruz MD Work Phone: H/O: cornea recipient Status pos t corneal transplant Christopher Snell MD Work Phone: H/O: hysterectomy History of par tial hysterectomy Dr. Maldonado Raza Work Phone: H/O: surgery S/P laparotomy w ith lysis of adhesions Dr. Maldonado Raza MD Work Phone: History of appendectomy Hx of appendectom y Dr. Maldonado Raza Work Phone: History of cholecystectomy Hx of cholecys tectomy Dr. Maldonado Raza Work Phone: History of reduction of breast Hx of bilateral breast reduction surgery Dr. Maldonado Raza Work Phone: Total abdominal hysterectomy No PCP None Plan of Treatment Date Care Activity Detail Author Start: 12-31-2034 DTaP/Tdap/Td Vaccines (3 - Td or Tdap) DTaP/Tdap/Td Vaccines (3 - Td or Tdap) [facility] Start: 12-31-2034 Urine microalbumin profile DTaP,Tdap,Td Vaccine (3 - Td or Tdap) [facility] Start: 11-15-2032 Screening for malignant neoplasm of colon [facility] Start: 01-19-2029 PNEUMOCOCCAL (4 - PPSV23 if available, else PCV20) PNEUMOCOCCAL (4 - PPSV23 if available, else PCV20) [facility] Start: 01-19-2029 PNEUMOCOCCAL (4 - PPSV23 or PCV20) PNEUMOCOCCAL (4 - PPSV23 or PCV20) [facility] Start: 01-19-2029 Pneumococcal vaccination [facility] Start: 01-19-2029 Pneumococcal Vaccine: Pediatrics (0 to 5 Years) and At-Risk Patients (6 to 64 Years) (4 - PPSV23 or PCV20) Pneumococcal Vaccine: Pediatrics (0 to 5 Years) and At-Risk Patients (6 to 64 Years) (4 - PPSV23 or PCV20) [facility] Start: 01-02-2027 Glaucoma screening Diabetes: Retinopathy Screening [facility] Start: 05-13-2026 Annual PCP Team Chronic Disease Visit Annual PCP Team Chronic Disease Visit [facility] Start: 05-13-2026 Hepatitis B Vaccine (2 of 2 - Risk Dialysis 4-dose series) Hepatitis B Vaccine (2 of 2 - Risk Dialysis 4-dose series) [facility] Start: 02-06-2026 Annual PCP Team Chronic Disease Visit Annual PCP Team Chronic Disease Visit [facility] Start: 02-06-2026 BP Controlled (<130/80) BP Controlled (<130/80) [facility] Start: 01-02-2026 Glaucoma screening Dilated Retinal Exam [facility] Start: 12-19-2025 Complete blood count Hemoglobin/Hematocrit [facility] Start: 12-19-2025 Creatinine measurement [facility] Start: 12-19-2025 Hepatitis B surface antibody level LDL Cholesterol [facility] Start: 12-19-2025 Lipid panel Lipid Panel [facility] Start: 12-05-2025 Annual PCP Team Chronic Disease Visit Annual PCP Team Chronic Disease Visit [facility] Start: 12-05-2025 BP Controlled (<130/80) BP Controlled (<130/80) [facility] Start: 12-05-2025 Diabetic foot examination Diabetic Foot Exam [facility] Start: 12-03-2025 Screening for malignant neoplasm of breast [facility] Start: 11-15-2025 Colonoscopy COLONOSCOPY [facility] Start: 11-15-2025 COLORECTAL CANCER SCREENING COLORECTAL CANCER SCREENING [facility] Start: 11-15-2025 Screening for malignant neoplasm of colon [facility] Start: 08-19-2025 End: 08-19-2025 Patient encounter procedure 08/19/2025 9:00 AM EST Office Visit [facility] [address] [place] [address] Mandie Younger APRN.[facility] [address] [place] [address] [facility] Comment on above: 6 month follow up Start: 08-14-2025 End: 08-14-2025 Patient encounter procedure 08/14/2025 9:15 AM EST Office Visit [facility] Op[facility]mology [address] [address] Christopher Snell MD [address] [place] [address] Diagn[facility] [address] [address] Uveitis follow up Ophthalmology Comment on above: Uveitis follow up Start: 08-05-2025 End: 08-05-2025 Patient encounter procedure 08/05/2025 8:40 AM EST Office Visit OB/Gynecology [address] [place] [address] Kaitlynn Winters MD [address] [place], [place] [id number] Cervical cancer screening [Z12.4] OB/Gynecology Comment on above: Cervical cancer screening [Z12.4] Start: 07-16-2025 End: 07-16-2025 Patient encounter procedure Vascular Surgery Comment on above: esrd Start: 07-11-2025 Screening for malignant neoplasm of breast [facility] Start: 07-09-2025 Hepatitis A Vaccine (3 of 3 - Hep A Twinrix risk 3-dose series) Hepatitis A Vaccine (3 of 3 - Hep A Twinrix risk 3-dose series) [facility] Start: 07-09-2025 Hepatitis B Vaccines (3 of 3 - Hep B Twinrix 3-dose series) Hepatitis B Vaccines (3 of 3 - Hep B Twinrix 3-dose series) [facility] Start: 06-20-2025 Hemoglobin A1c measurement HbA1C [facility] Start: 06-13-2025 Annual PCP Team Chronic Disease Visit Annual PCP Team Chronic Disease Visit [facility] Start: 06-13-2025 Anxiety Screening Anxiety Screening [facility] Start: 06-13-2025 Depression Screening Depression Screening [facility] Start: 06-10-2025 End: 06-10-2025 Patient encounter procedure 06/10/2025 10:00 AM EDT Office Visit [facility] [address] [place] [address] Maldonado Raza MD [address] [place], [place] [id number] Medicare Wellness [facility] Comment on above: Medicare Wellness Start: 06-07-2025 Glaucoma screening Dilated Retinal Exam [facility] Start: 06-03-2025 Hepatitis a & b vaccine hepa-hepb adult im HEP A-HEP B VACCINE (TWINRIX) Immunization/Injection Routine Need for vaccination Expected: 06/03/2025 (Approximate) [facility] Comment on above: Expected: 06/03/2025 (Approximate) Start: 06-02-2025 End: 09-01-2025 CBC panel - Blood by Automated count COMPLETE BLOOD COUNT Lab Routine ESRD (end stage renal disease) (HCC) Expected: 06/02/2025, Expires: 09/01/2025 [facility] Comment on above: Expected: 06/02/2025, Expires: Start: 06-02-2025 End: 09-01-2025 Comprehensive metabolic 2000 panel - Serum or Plasma COMPREHENSIVE METABOLIC PANEL Lab Routine ESRD (end stage renal disease) (HCC) Expected: 06/02/2025, Expires: 09/01/2025 [facility] Comment on above: Expected: 06/02/2025, Expires: Start: 06-02-2025 End: 09-01-2025 Hemoglobin A1c in Blood HEMOGLOBIN A1C Lab Routine Controlled type 2 diabetes mellitus without complication, with long-term current use of insulin (HCC) Expected: 06/02/2025, Expires: 09/01/2025 [facility] Comment on above: Expected: 06/02/2025, Expires: Start: 06-02-2025 End: 09-01-2025 Lipid 1996 panel - Serum or Plasma LIPID PANEL, FASTING Lab Routine Controlled type 2 diabetes mellitus without complication, with long-term current use of insulin (HCC) Expected: 06/02/2025, Expires: 09/01/2025 [facility] Comment on above: Expected: 06/02/2025, Expires: Start: 06-02-2025 End: 09-01-2025 Thyrotropin [Units/volume] in Serum or Plasma THYROID STIMULATING HORMONE Lab Routine Hypothyroidism, unspecified type Expected: 06/02/2025, Expires: 09/01/2025 [facility] Comment on above: Expected: 06/02/2025, Expires: Start: 05-08-2025 Complete blood count Hemoglobin/Hematocrit [facility] Start: 05-08-2025 Creatinine measurement Serum Creatinine [facility] Start: 05-05-2025 Influenza vaccination [facility] Start: 04-29-2025 End: 04-29-2025 Patient encounter procedure 04/29/2025 11:40 AM EDT Office Visit [facility] [address] [place] [address] Maldonado Raza MD [address] [place], [place] [address] See phone encounter 04/23, weakness, shortness of breath [facility] Comment on above: See phone encounter 04/23, weakness, shor tness of breath Start: 03-20-2025 Hemoglobin A1c measurement Diabetes: Hemoglobin A1C [facility] Start: 03-06-2025 Hepatitis B Vaccine (3 of 5 - Risk Dialysis 4-dose series) Hepatitis B Vaccine (3 of 5 - Risk Dialysis 4-dose series) [facility] Start: 03-03-2025 Influenza vaccination Influenza Vaccine (#1) [facility] Comment on above: Postponed from 05/05/2024 (Declined at t his time) Start: 02-28-2025 Annual PCP Team Chronic Disease Visit Annual PCP Team Chronic Disease Visit [facility] Start: 02-28-2025 Creatinine measurement Serum Creatinine [facility] Start: 02-28-2025 Diabetes mellitus screening Diabetes Screening [facility] Start: 02-28-2025 Hemoglobin A1c measurement Diabetes: Hemoglobin A1C [facility] Start: 02-28-2025 Hepatitis B surface antibody level LDL Cholesterol [facility] Start: 02-28-2025 Thyroid stimulating hormone measurement TSH Level [facility] Start: 02-20-2025 End: 02-20-2025 Patient encounter procedure 02/20/2025 9:00 AM EDT Office Visit [facility] [address] [place] [address] [place] [phone] Fer Duron MD [address] [place] [address] Dr [address] [place] [address] [facility] f/u CHF [facility] Comment on above: [facility] f/u CHF Start: 02-13-2025 End: 02-13-2025 Patient encounter procedure 02/13/2025 2:30 PM EDT Office Visit [facility] Ophthalmology [address] [address] Christopher Snell MD [address] [place] [address] Return in about 6 weeks (around 02/13/2025). Ophthalmology Comment on above: Return in about 6 weeks (around ). Start: 01-30-2025 Oxygen therapy [facility] Start: 01-30-2025 Patient discharge [facility] Start: 01-29-2025 Hemodialysis care [facility] Start: 01-29-2025 End: 01-29-2025 [facility] Start: 01-29-2025 [facility] Start: 01-28-2025 End: 01-28-2025 [facility] Start: 01-28-2025 Ambulation without limitation [facility] Start: 01-28-2025 Assessment of risk of venous thromboembolism [facility] Start: 01-28-2025 Care regimes management [facility] Start: 01-28-2025 Catheterization of vein [facility] Start: 01-28-2025 Elevation of affected extremity [facility] Start: 01-28-2025 Inhalation therapy procedure [facility] Start: 01-28-2025 Insertion of catheter into peripheral vein [facility] Start: 01-28-2025 Measuring intake and output [facility] Start: 01-28-2025 Notification of physician [facility] Start: 01-28-2025 Oxygen therapy [facility] Start: 01-28-2025 Patient education [facility] Start: 01-28-2025 Providing care according to standard [facility] Start: 01-28-2025 Referral to stock unloader [facility] Start: 01-28-2025 End: 01-28-2025 [facility] Start: 01-28-2025 End: 01-28-2025 Following clinical pathway protocol [facility] Start: 01-28-2025 Hospital admission, emergency, from emergency room, medical nature [facility] Start: 01-28-2025 Verification routine [facility] Start: 01-28-2025 Admission procedure [facility] Start: 01-28-2025 Patient referral to dietitian [facility] Start: 01-21-2025 End: 01-21-2025 Patient encounter procedure 01/21/2025 2:20 PM EDT Office Visit OB/Gynecology [address] [place] [address] Kaitlynn Winters MD [address] [place] [address] Annual OB/Gynecology Comment on above: Annual Start: 01-17-2025 Creatinine measurement Serum Creatinine [facility] Start: 01-13-2025 End: 01-13-2025 Admission to same day surgery center 01/13/2025 5:08 PM EDT - 01/13/2025 6:59 PM EDT Surgery Admitting [address] [place] [address] Luna Thomas MD [address] [place] [address] INTRO NEEDLE/CATH FOR ANGIO DIALYSIS CIRCUIT UPPER EXTREMITY,FLUORO GUIDED,INCLUSIVE OF RAD S&I Admitting Comment on above: INTRO NEEDLE/CATH FOR ANGIO DIALYSIS CIR CUIT UPPER EXTREMITY,FLUORO GUIDED,INCLUSIVE OF RAD S&I Start: 01-13-2025 End: 01-13-2025 Intro cath dialysis circuit dx angrph fluor s&i INTRO NEEDLE/CATH FOR ANGIO DIALYSIS CIRCUIT UPPER EXTREMITY,FLUORO GUIDED,INCLUSIVE OF RAD S&I ESRD on dialysis (HCC) 01/13/2025 5:08 PM EDT [facility] Start: 01-13-2025 Subsequent hospital visit by physician 01/13/2025 5:08 PM EDT Hospital Encounter Admitting [address] [place] [address] Luna Thomas MD [address] [place] [address] ESRD on dialysis (HCC) [N18.6, Z99.2] Admitting Comment on above: ESRD on dialysis (HCC) [N18.6, Z99.2] Start: 01-13-2025 End: 01-13-2025 Admission to same day surgery center 01/13/2025 2:43 PM EDT - 01/13/2025 4:34 PM EDT Surgery Admitting [address] [place] [address] Luna Thomas MD [address] [place] [address] INTRO NEEDLE/CATH FOR ANGIO DIALYSIS CIRCUIT UPPER EXTREMITY,FLUORO GUIDED,INCLUSIVE OF RAD S&I Admitting Comment on above: INTRO NEEDLE/CATH FOR ANGIO DIALYSIS CIR CUIT UPPER EXTREMITY,FLUORO GUIDED,INCLUSIVE OF RAD S&I Start: 01-13-2025 End: 01-13-2025 Intro cath dialysis circuit dx angrph fluor s&i INTRO NEEDLE/CATH FOR ANGIO DIALYSIS CIRCUIT UPPER EXTREMITY,FLUORO GUIDED,INCLUSIVE OF RAD S&I ESRD on dialysis (HCC) 01/13/2025 2:43 PM EDT [facility] Start: 01-13-2025 Subsequent hospital visit by physician 01/13/2025 2:43 PM EDT Hospital Encounter Admitting [address] [place] [address] Luna Thomas MD [address] [place] [address] ESRD on dialysis (HCC) [N18.6, Z99.2] Admitting Comment on above: ESRD on dialysis (HCC) [N18.6, Z99.2] Start: 01-09-2025 End: 01-09-2025 Patient encounter procedure Vascular Surgery Comment on above: esrd Start: 01-07-2025 End: 01-07-2025 Nursing evaluation of patient and report [facility] Comment on above: Hep B shot Twinrix #2 Start: 01-04-2025 Hepatitis a & b vaccine hepa-hepb adult im HEP A-HEP B VACCINE (TWINRIX) Immunization/Injection Routine Need for vaccination Expected: 01/04/2025 (Approximate) [facility] Comment on above: Expected: 01/04/2025 (Approximate) Start: 01-02-2025 Hepatitis A Vaccine (2 of 3 - Hep A Twinrix risk 3-dose series) Hepatitis A Vaccine (2 of 3 - Hep A Twinrix risk 3-dose series) [facility] Start: 01-02-2025 Hepatitis B Vaccine (2 of 5 - Risk Dialysis 4-dose series) Hepatitis B Vaccine (2 of 5 - Risk Dialysis 4-dose series) [facility] Start: 01-02-2025 End: 01-02-2025 Patient encounter procedure Ophthalmology Comment on above: [facility] Start: 01-01-2025 Subsequent hospital visit by physician 01/01/2025 Hospital Encounter [facility] [address] [place] [address] [place] [address] [place] [address] ESRD (end stage renal disease) (HCC) [N18.6] [facility] Comment on above: ESRD (end stage renal disease) (HCC) [N1 8.6] Start: 12-31-2024 Patient referral [facility] Work Phone: Start: 12-10-2024 End: 12-10-2024 Patient encounter procedure 12/10/2024 9:00 AM EDT Office Visit [facility] [address] [place] [address] [place] [phone] Mandie Younger APRN.[facility] [address] [place] [address] 6 month follow up, ASCVD [facility] Comment on above: 6 month follow up, ASCVD Start: 12-05-2024 End: 12-05-2024 Patient encounter procedure [facility] Comment on above: Medicare Wellness w/5 month follow-up [facility] Start: 12-03-2024 End: 12-03-2024 Patient encounter procedure Mammogram Comment on above: Comp- Bilat CB US BREAST LTD RIGHT Start: 11-16-2024 HPV TESTING HPV TESTING [facility] Start: 11-16-2024 Screening for malignant neoplasm of cervix HPV Testing [facility] Start: 11-06-2024 PAP TESTING PAP TESTING [facility] Start: 11-06-2024 Screening for malignant neoplasm of cervix [facility] Start: 10-26-2024 Annual PCP Team Chronic Disease Visit Annual PCP Team Chronic Disease Visit [facility] Start: 10-26-2024 Diabetic foot examination Diabetic Foot Exam [facility] Start: 10-10-2024 End: 10-10-2024 Patient encounter procedure 10/10/2024 9:15 AM EST Office Visit [facility] Ophthalmology [address] [address] Christopher Snell MD [address] [place] [address] [facility] Ophthalmology Comment on above: [facility] Start: 09-27-2024 End: 09-27-2024 Patient encounter procedure 09/27/2024 8:00 AM EST Office Visit [facility] [place] [address] [place], [place] [address] Maldonado Raza MD [address] [place], [place] [id number] Medicare Wellness - 3 month follow-up [facility] Comment on above: Medicare Wellness - 3 month follow-up Start: 09-24-2024 End: 09-24-2024 Patient encounter procedure Mammogram Comment on above: Request: [facility] DI[facility]NOST[facility] BILATERAL Comp- Bilat CB Abnormal screening m ammogram [R92.8] Start: 09-18-2024 Echocardiography Echocardiogram [facility] Start: 09-14-2024 Annual PCP Team Chronic Disease Visit Annual PCP Team Chronic Disease Visit [facility] Start: 09-12-2024 End: 09-12-2024 Patient encounter procedure 09/12/2024 10:00 AM EST Appointment [facility] [address] [place] [address] [facility] Start: 09-04-2024 Medicare Advantage Annual Wellness Visit Medicare Advantage Annual Wellness Visit [facility] Start: 08-30-2024 Hemoglobin A1c measurement HbA1C [facility] Start: 08-08-2024 End: 08-08-2024 Patient encounter procedure 08/08/2024 2:30 PM EST Office Visit [facility] Ophthalmology [address] [address] Christopher Snell MD [address] [place] [address] [facility] Ophthalmology Comment on above: [facility] Start: 07-25-2024 End: 07-25-2024 Social Work [facility] Start: 07-23-2024 End: 07-23-2024 Patient encounter procedure [facility] Start: 07-23-2024 End: 07-23-2025 MR Heart WO and W contrast IV MR cardiac morphology and function w and wo IV contrast Imaging Routine LVH (left ventricular hypertrophy) due to hypertensive disease, without heart failure Kidney transplant candidate Coronary arteriosclerosis Expected: 07/23/2024, Expires: 07/23/2025 [facility] Service Area Work Phone: Comment on above: Expected: 07/23/2024, Expires: Start: 07-18-2024 Creatinine measurement Serum Creatinine [facility] Start: 07-18-2024 Serum Creatinine Serum Creatinine [facility] Start: 07-16-2024 End: 07-16-2024 ambulatory 07/16/2024 3:00 PM EST Other [facility] [address] [place] [address] [facility] Start: 07-11-2024 End: 07-11-2024 Patient encounter procedure 07/11/2024 3:30 PM EST Appointment [facility] [address] [place] [address] [facility] Start: 07-11-2024 End: 07-11-2024 Patient encounter procedure 07/11/2024 9:30 AM EST Appointment Mammogram [address] [place] [address] Encounter for screening mammogram for breast cancer [Z12.31] Mammogram Comment on above: Encounter for screening mammogram for br east cancer [Z12.31] Start: 07-10-2024 End: 07-10-2024 Patient encounter procedure 07/10/2024 2:45 PM EST Office Visit Vascular Surg Dept [address] [place] [address] Luna Thomas MD [address] [place] [address] 1M POST OP RUE VENOGRAM [facility] Surg [facility] Comment on above: 1M POST OP RUE VENOGRAM Start: 07-10-2024 End: 07-10-2024 Patient encounter procedure 07/10/2024 1:30 PM EST Office Visit Vascular Surgery [address] [place] [address] RUE AVF Vascular Surgery Comment on above: RUE AVF Start: 06-29-2024 Annual PCP Team Chronic Disease Visit Annual PCP Team Chronic Disease Visit [facility] Start: 06-27-2024 Glaucoma screening Dilated Retinal Exam [facility] Start: 06-27-2024 Hepatitis C antibody, confirmatory test Dilated Retinal Exam [facility] Start: 06-21-2024 Complete blood count Hemoglobin/Hematocrit [facility] Start: 06-21-2024 Hemoglobin/Hematocrit Hemoglobin/Hematocrit [facility] Start: 06-21-2024 Serum Creatinine Serum Creatinine [facility] Start: 06-20-2024 Serum Creatinine Serum Creatinine [facility] Start: 06-13-2024 End: 06-13-2024 Patient encounter procedure 06/13/2024 3:00 PM EDT Office Visit [facility] [address] [place] [address] Maldonado Raza MD [address] [place], [place] [address] Medicare wellness w/3 month follow-up [facility] Comment on above: Medicare wellness w/3 month follow-up Start: 06-12-2024 Annual PCP Team Chronic Disease Visit Annual PCP Team Chronic Disease Visit [facility] Start: 06-12-2024 Urine microalbumin profile DTaP,Tdap,Td Vaccine (2 - Td or Tdap) [facility] Comment on above: Postponed from 11/02/2022 (Declined at t his time) Start: 06-06-2024 End: 06-06-[address] [facility] Comment on above: 6 month follow up, hx of ASCVD. 6 month follow up, h x of ASCVD. (MB) Start: 05-31-2024 Hemoglobin A1c measurement Diabetes: Hemoglobin A1C [facility] Start: 05-30-2024 End: 05-30-2024 Patient encounter procedure [facility] Comment on above: 3 month follow-up Medicare Wellness - 3 month follow-up Start: 05-30-2024 Creatinine measurement Creatinine Level [facility] Start: 05-30-2024 Diabetes mellitus screening Diabetes Screening [facility] Start: 05-30-2024 Potassium measurement Potassium Level [facility] Start: 05-30-2024 Serum Creatinine Serum Creatinine [facility] Start: 05-20-2024 End: 05-20-2024 Patient encounter procedure 05/20/2024 1:00 PM EDT Appointment [facility] [address] [place] [address] [facility] Start: 05-16-2024 End: 05-16-2024 Admission to same day surgery center Admitting Comment on above: VENOGRAM EXTREMITY UPPER Start: 05-16-2024 End: 05-16-2024 Anesthesia consultation 05/16/2024 10:53 AM EDT Anesthesia Event Admitting [address] [place] [address] Shahla Dueñas DO [address] [place] [address] Admitting Start: 05-16-2024 End: 05-16-2024 Slctv cath plmt saul sys 2nd order/> slctv branc [facility] Start: 05-16-2024 Subsequent hospital visit by physician Admitting Comment on above: Swelling of right upper extremity [M79.8 9] Start: 05-14-2024 End: 05-14-2024 Patient encounter procedure 05/14/2024 2:00 PM EDT Office Visit [facility] Op[facility]mology [address] [address] Héctor Cruz MD [address] [place] [address] [facility] seg oct os Ophthalmology Comment on above: add [facility] iop ou ant seg oct o s Start: 05-14-2024 End: 05-14-2024 Admission to same day surgery center 05/14/2024 10:52 AM EDT - 05/14/2024 1:22 PM EDT Surgery Admitting [address] [place] [address] Luna Thomas MD [address] [place] [address] VENOGRAM EXTREMITY UPPER Admitting Comment on above: VENOGRAM EXTREMITY UPPER Start: 05-14-2024 End: 05-14-2024 Slctv cath plmt saul sys 2nd order/> slctv branc VENOGRAM EXTREMITY UPPER Swelling of right upper extremity 05/14/2024 10:52 AM EDT [facility] THOM[facility] Start: 05-14-2024 Subsequent hospital visit by physician 05/14/2024 10:52 AM EDT Hospital Encounter Admitting [address] [place] [address] Luna Thomas MD [address] [place] [address] Swelling of right upper extremity [M79.89] Admitting Comment on above: Swelling of right upper extremity [M79.8 9] Start: 05-08-2024 End: 05-08-2024 Patient encounter procedure Vascular Surgery Comment on above: Esrd f/u Start: 05-05-2024 Covid-19 Vaccine ( season) Covid-19 Vaccine () [facility] Start: 05-05-2024 Influenza vaccination Influenza Vaccine (#1) [facility] Start: 04-10-2024 SERUM CREATININE SERUM CREATININE [facility] Start: 04-09-2024 End: 04-09-2024 Patient encounter procedure 04/09/2024 3:30 PM EDT Office Visit [facility] Ophthalmology [address] [address] Héctor Cruz MD [address] [place] [address] add [facility] oct os Ophthalmology Comment on above: add [facility] oct o s Start: 02-29-2024 End: 02-29-2024 Patient encounter procedure 02/29/2024 2:40 PM EDT Office Visit Internal Medicine [facility] [address] [place] [address] Maldonado Raza MD [address] [place], [place] [address] 3 mo f/u [facility] Comment on above: 3 mo f/u Start: 02-29-2024 End: 05-30-2024 Comprehensive metabolic 2000 panel - Serum or Plasma [facility] Work Phone: Comment on above: Expected: 02/29/2024, Expires: 4 Start: 02-29-2024 End: 05-30-2024 Hemoglobin A1c in Blood [facility] Comment on above: Expected: 02/29/2024, Expires: Start: 02-29-2024 End: 05-30-2024 LIPID PANEL, NONFASTING [facility] Comment on above: Expected: 02/29/2024, Expires: Start: 02-29-2024 End: 05-30-2024 Thyrotropin [Units/volume] in Serum or Plasma [facility] Comment on above: Expected: 02/29/2024, Expires: Start: 02-24-2024 ANNUAL PCP TEAM CHRONIC DISEASE VISIT ANNUAL PCP TEAM CHRONIC DISEASE VISIT [facility] Start: 02-24-2024 BP CONTROLLED (<130/80) BP CONTROLLED (<130/80) [facility]ic Start: 02-24-2024 COVID-19 VACCINE (3 - Booster for Pfizer series) COVID-19 VACCINE (3 - Booster for Pfizer series) [facility] Comment on above: Postponed from 12/08/2022 (Declined at t his time) Start: 02-24-2024 COVID-19 VACCINE (3 - Pfizer series) COVID-19 VACCINE (3 - Pfizer series) [facility] Comment on above: Postponed from 12/08/2022 (Declined at t his time) Start: 02-24-2024 HEMOGLOBIN/HEMATOCRIT HEMOGLOBIN/HEMATOCRIT [facility] Start: 02-24-2024 Hepatitis B surface antibody level LDL CHOLESTEROL [facility] Start: 02-24-2024 SERUM CREATININE SERUM CREATININE [facility] Start: 02-13-2024 End: 02-13-2024 Patient encounter procedure 02/13/2024 1:00 PM EDT Office Visit [facility] Ophthalmology [address] [address] Héctor Cruz MD [address] [place] [address] 3 MONTH Ophthalmology Comment on above: 3 MONTH Start: 01-25-2024 End: 01-25-2024 Patient encounter procedure 01/25/2024 10:20 AM EDT Office Visit Internal Medicine [facility] [address] [place] [address] Maldonado Raza MD [address] [place], [place] [id number] 3 month follow up [facility] Comment on above: 3 month follow up Start: 2024 RSV High Risk: (Elderly (60+) or Population) (1 - Risk 60-74 years 1-dose series) RSV High Risk: (Elderly (60+) or Population) (1 - Risk 60-74 years 1-dose series) [facility] Start: 2024 RSV patients and/or patients aged 60+ years (1 - 1-dose 60+ series) RSV patients and/or patients aged 60+ years (1 - 1-dose 60+ series) [facility] Start: 2024 RSV Vaccine (1 - 1-dose 60+ series) RSV Vaccine (1 - 1-dose 60+ series) [facility] Start: 2024 RSV Vaccine (1 - Risk 60-74 years 1-dose series) RSV Vaccine (1 - Risk 60-74 years 1-dose series) [facility] Start: 01-18-2024 End: 04-18-2024 Basic metabolic 2000 panel - Serum or Plasma BASIC METABOLIC PANEL Lab STAT Pre-op testing Expected: 01/18/2024, Expires: 04/18/2024 [facility] Work Phone: Comment on above: Expected: 01/18/2024, Expires: 4 Start: 01-18-2024 End: 01-16-2025 ECG COMPLETE ECG COMPLETE ECG STAT Pre-op testing Expected: 01/18/2024, Expires: 01/16/2025 [facility] Comment on above: Expected: 01/18/2024, Expires: 5 Start: 01-18-2024 End: 01-18-2024 Admission to same day surgery center [facility] Invasive Cardiology Comment on above: PERC THROMBECTOMY/INFUSION FOR THROMBOLY SIS AV FISTULA,FLUORO GUIDED,INCLUSIVE OF RAD S&I Start: 01-18-2024 End: 01-18-2024 Perq thrmbc/nfs dialysis circuit img dx angrph PERC THROMBECTOMY/INFUSION FOR THROMBOLYSIS AV FISTULA,FLUORO GUIDED,INCLUSIVE OF RAD S&I ESRD (end stage renal disease) ([facility]) 01/18/2024 1:30 PM EDT [facility] CATH Start: 01-18-2024 Subsequent hospital visit by physician [facility] Invasive Cardiology Comment on above: ESRD (end stage renal disease) ([facility]) [N1 8.6] Start: 11-28-2023 Hemoglobin A1c measurement HbA1C [facility] Start: 11-28-2023 Hemoglobin A1c/Hemoglobin.total in Blood HbA1C [facility] Start: 11-16-2023 Colonoscopy COLONOSCOPY [facility] Start: 11-16-2023 COLORECTAL CANCER SCREENING COLORECTAL CANCER SCREENING [facility] Start: 09-20-2023 3 comp foot exam completed DIABETIC FOOT EXAM [facility] Start: 09-20-2023 ANNUAL PCP TEAM CHRONIC DISEASE VISIT ANNUAL PCP TEAM CHRONIC DISEASE VISIT [facility] Start: 09-20-2023 BP CONTROLLED (<130/80) BP CONTROLLED (<130/80) [facility] Start: 09-20-2023 Diabetic foot examination Diabetic Foot Exam [facility] Start: 09-20-2023 HEPATITIS A (1 of 2 - Risk 2-dose series) HEPATITIS A (1 of 2 - Risk 2-dose series) [facility] Comment on above: Postponed from 01/19/1965 (Declined at t his time) Postponed from 01/19 (Declined at this time) Start: 09-20-2023 Hepatitis A Vaccine (1 of 2 - Risk 2-dose series) Hepatitis A Vaccine (1 of 2 - Risk 2-dose series) [facility] Comment on above: Postponed from 01/19/1983 (Declined at t his time) Start: 09-20-2023 HEPATITIS B (1 of 3 - 3-dose series) HEPATITIS B (1 of 3 - 3-dose series) [facility] Comment on above: Postponed from 1964 (Declined at t his time) Start: 09-20-2023 Hepatitis B Vaccine (1 of 3 - Risk Dialysis 4-dose series) Hepatitis B Vaccine (1 of 3 - Risk Dialysis 4-dose series) [facility] Comment on above: Postponed from 1984 (Declined at t his time) Start: 09-19-2023 End: 09-19-2023 Patient encounter procedure 09/19/2023 11:15 AM EST Appointment [address] [id number] [facility] Start: 09-19-2023 End: 09-19-2023 Patient encounter procedure [facility] Start: 09-13-2023 SERUM CREATININE SERUM CREATININE [facility] Start: 09-04-2023 Behavioral Health Screening Behavioral Health Screening [facility] Start: 08-25-2023 Hemoglobin A1c/Hemoglobin.total in Blood HBA1C [facility] Start: 07-18-2023 End: 10-17-2023 Basic metabolic 2000 panel - Serum or Plasma BASIC METABOLIC PNL Lab STAT ESRD (end stage renal disease) ([facility]) Expected: 07/18/2023, Expires: 10/17/2023 [facility] Work Phone: Comment on above: Expected: 07/18/2023, Expires: 4 Start: 07-18-2023 End: 07-17-2024 ECG COMPLETE ECG COMPLETE ECG STAT ESRD (end stage renal disease) ([facility]) Expected: 07/18/2023, Expires: 07/17/2024 [facility] Work Phone: Comment on above: Expected: 07/18/2023, Expires: 4 Start: 07-05-2023 Mammography [facility] Start: 07-05-2023 Screening for malignant neoplasm of breast [facility] Start: 06-29-2023 COVID-19 Vaccine (#1) COVID-19 Vaccine (#1) [facility] Start: 06-20-2023 End: 08-20-2023 Basic metabolic 2000 panel - Serum or Plasma BASIC METABOLIC PNL Lab STAT ESRD (end stage renal disease) ([facility]) Expected: 06/20/2023, Expires: 08/20/2023 [facility] Work Phone: Comment on above: Expected: 06/20/2023, Expires: 3 Start: 06-20-2023 End: 06-19-2024 ECG COMPLETE ECG COMPLETE ECG STAT ESRD (end stage renal disease) ([facility]) Expected: 06/20/2023, Expires: 06/19/2024 [facility] Work Phone: Comment on above: Expected: 06/20/2023, Expires: 4 Start: 06-09-2023 SERUM CREATININE SERUM CREATININE [facility] Start: 05-05-2023 Covid-19 Vaccine () Covid-19 Vaccine () [facility] Start: 05-05-2023 Influenza vaccination [facility] Start: 05-02-2023 ANNUAL PCP TEAM CHRONIC DISEASE VISIT ANNUAL PCP TEAM CHRONIC DISEASE VISIT [facility] Start: 05-02-2023 BP CONTROLLED (<130/80) BP CONTROLLED (<130/80) [facility] in Start: 05-02-2023 HEMOGLOBIN/HEMATOCRIT HEMOGLOBIN/HEMATOCRIT [facility] Start: 05-02-2023 Hepatitis B surface antibody level LDL CHOLESTEROL [facility] Start: 05-02-2023 SERUM CREATININE SERUM CREATININE [facility] Start: 04-10-2023 End: 06-10-2023 Basic metabolic 2000 panel - Serum or Plasma BASIC METABOLIC PNL Lab STAT ESRD (end stage renal disease) ([facility]) Expected: 04/10/2023, Expires: 06/10/2023 [facility] Work Phone: Comment on above: Expected: 04/10/2023, Expires: 3 Start: 04-10-2023 End: 04-07-2024 ECG COMPLETE ECG COMPLETE ECG STAT ESRD (end stage renal disease) ([facility]) Expected: 04/10/2023, Expires: 04/07/2024 [facility] Work Phone: Comment on above: Expected: 04/10/2023, Expires: 4 Start: 12-08-2022 COVID-19 VACCINE (3 - Booster for Pfizer series) COVID-19 VACCINE (3 - Booster for Pfizer series) [facility] Start: 11-26-2022 ANNUAL PCP TEAM CHRONIC DISEASE VISIT ANNUAL PCP TEAM CHRONIC DISEASE VISIT [facility] Start: 11-16-2022 COVID-19 VACCINE (#1) COVID-19 VACCINE (#1) [facility] Comment on above: Postponed from 01/19/1969 (Declined at t his time) Postponed from 07/22 (Declined at this time) Start: 11-16-2022 COVID-19 VACCINE (1) COVID-19 VACCINE (1) [facility] Comment on above: Postponed from 01/19/1969 (Declined at t his time) Start: 11-02-2022 DTaP/Tdap/Td Vaccines (2 - Td or Tdap) DTaP/Tdap/Td Vaccines (2 - Td or Tdap) [facility] Start: 11-02-2022 Urine microalbumin profile [facility] Start: 11-01-2022 Hemoglobin A1c/Hemoglobin.total in Blood HBA1C [facility] Start: 10-11-2022 COVID-19 VACCINE (2 - Pfizer series) COVID-19 VACCINE (2 - Pfizer series) [facility] Start: 09-20-2022 End: 11-20-2022 Thyrotropin [Units/volume] in Serum or Plasma TSH BLD Lab Routine Hypothyroidism, unspecified type Expected: 09/20/2022, Expires: 11/20/2022 [facility] Work Phone: Comment on above: Expected: 09/20/2022, Expires: 3 Start: 09-04-2022 Depression Assessment Depression Assessment [facility] Start: 08-12-2022 3 comp foot exam completed DIABETIC FOOT EXAM [facility] Start: 07-05-2022 End: 09-04-2022 Microscopic observation [Identifier] in Vaginal fluid by Gram stain BACT/HARINDER VAG GRAM STAIN Microbiology Routine Vaginal discharge Expected: 07/05/2022, Expires: 09/04/2022 [facility] Work Phone: Comment on above: Expected: 07/05/2022, Expires: 3 Start: 05-05-2022 CLARKE, Provider: Rhoda Mathews, Status: Pen, Time: 1:00 PM CLARKE, Provider: Rhoda Mathews, Status: Pen, Time: 1:00 PM [facility] Work Phone: Start: 05-05-2022 Influenza vaccination INFLUENZA (#1) [facility] Start: 05-02-2022 End: 07-02-2022 Basic metabolic 2000 panel - Serum or Plasma [facility] Work Phone: Comment on above: Expected: 05/02/2022, Expires: 2 Start: 05-02-2022 End: 07-02-2022 CBC panel - Blood by Automated count [facility] Work Phone: Comment on above: Expected: 05/02/2022, Expires: 2 Start: 05-02-2022 End: 07-02-2022 Hemoglobin A1c in Blood [facility] Work Phone: Comment on above: Expected: 05/02/2022, Expires: 2 Start: 05-02-2022 End: 07-02-2022 LIPID PANEL, NONFASTING [facility] Work Phone: Comment on above: Expected: 05/02/2022, Expires: 2 Start: 04-23-2022 HEMOGLOBIN/HEMATOCRIT HEMOGLOBIN/HEMATOCRIT [facility] Start: 04-23-2022 SERUM CREATININE SERUM CREATININE [facility] Start: 03-30-2022 Hepatitis B surface antibody level LDL CHOLESTEROL [facility] Start: 09-30-2021 Hemoglobin A1c/Hemoglobin.total in Blood HBA1C [facility] Start: 05-05-2021 Mammography MAMMOGRAM [facility] Start: 07-09-2020 SHINGRIX VACCINE (2 of 2) SHINGRIX VACCINE (2 of 2) [facility] Start: 07-09-2020 Zoster Vaccines (2 of 2) Zoster Vaccines (2 of 2) [facility] Start: 08-14-2019 BP CONTROLLED (<130/80) BP CONTROLLED (<130/80) [facility] in Start: 05-10-2019 Colonoscopy COLONOSCOPY [facility] Start: 05-10-2019 COLORECTAL CANCER SCREENING COLORECTAL CANCER SCREENING [facility] Start: 05-30-2018 Hepatitis C antibody, confirmatory test DILATED RETINAL EXAM [facility] Start: 05-31-2017 TWO PNEUMOVAX 5 YEARS APART PRIOR TO AGE 65 (#2) TWO PNEUMOVAX 5 YEARS APART PRIOR TO AGE 65 (#2) [facility] Start: 01-19-2009 COLOGUARD (FIT-DNA) COLOGUARD (FIT-DNA) [facility] Start: 01-19-[address] COLONOGRAPHY [facility] Start: 01-19-2009 FECAL OCCULT BLOOD FECAL OCCULT BLOOD [facility] Start: 01-19-2009 Screening for malignant neoplasm of colon [facility] Start: 01-19-2009 SIGMOIDOSCOPY SIGMOIDOSCOPY [facility] Start: 01-19-1985 Screening for malignant neoplasm of cervix [facility] Start: 1984 Hepatitis B Vaccine (1 of 3 - Risk Dialysis 4-dose series) Hepatitis B Vaccine (1 of 3 - Risk Dialysis 4-dose series) [facility] Start: 01-19-1983 Hepatitis A Vaccine (1 of 2 - Risk 2-dose series) Hepatitis A Vaccine (1 of 2 - Risk 2-dose series) [facility] Start: 01-19-1983 HEPATITIS B (1 of 3 - Risk 3-dose series) HEPATITIS B (1 of 3 - Risk 3-dose series) [facility] Start: 01-19-1983 Urine screening for protein [facility] Start: 01-19-1982 Anxiety Screening Anxiety Screening [facility] Start: 01-19-1982 Depression Screening Depression Screening [facility] Start: 01-19-1982 HIV SCREENING HIV SCREENING [facility] Start: 01-19-1974 Glaucoma screening Diabetes: Retinopathy Screening [facility] Start: 01-19-1965 HEPATITIS A (1 of 2 - Risk 2-dose series) HEPATITIS A (1 of 2 - Risk 2-dose series) [facility] Start: 01-19-1965 MMR Vaccines (1 of 1 - Standard series) MMR Vaccines (1 of 1 - Standard series) [facility] Start: 1964 HEPATITIS B (1 of 3 - 3-dose series) HEPATITIS B (1 of 3 - 3-dose series) [facility] Start: 1964 Hepatitis B Vaccines (1 of 3 - 3-dose series) Hepatitis B Vaccines (1 of 3 - 3-dose series) [facility] Start: 1964 Lipid panel Lipid Panel [facility] Start: 1964 Medicare Annual Wellness Visit Medicare Annual Wellness Visit (AWV) [facility] Start: 1964 Screening for malignant neoplasm of colon [facility] Start: 1964 Thyroid stimulating hormone measurement TSH Level [facility] End: 04-16-2024 CT Abdomen WO contrast [facility] Work Phone: Comment on above: Once for 1 Occurrences starting 04/16/20 until 04/16/2024 End: 07-11-2024 CT for calcium scoring WO contrast and CTA W contrast IV Heart and coronary arteries [facility] Work Phone: Comment on above: Once for 1 Occurrences starting 07/11/20 until 07/11/2024 ECG 12 lead (Clinic Performed) ECG 12 lead (Clinic Performed) ECG Routine Preop cardiovascular exam 07/23/2024 4:00 PM EST [facility] Work Phone: ECG COMPLETE ECG COMPLETE ECG Routine Abnormal EKG 12/07/2023 10:06 AM T [facility] Work Phone: ECG COMPLETE ECG COMPLETE ECG Routine ASCVD (arteriosclerotic cardiovascular disease) 06/11/2024 7:07 AM EDT [facility] Work Phone: ECG COMPLETE ECG COMPLETE ECG Routine 02/20/2025 9:00 AM EDT [facility] Work Phone: End: 10-26-2024 Echocardiography ECHO Cardiology Routine Heart murmur, systolic 1 Occurrences starting 10/26/2023 until 10/26/2024 [facility] Work Phone: Comment on above: 1 Occurrences starting 10/26/2023 until 10/26/2024 End: 06-26-2026 FLUORESCEIN ANGIOGRAPHY OU (BOTH EYES), TRANSIT OS (LEFT EYE) FLUORESCEIN ANGIOGRAPHY OU (BOTH EYES), TRANSIT OS (LEFT EYE) [facility] Imaging Routine Controlled type 2 diabetes mellitus without complication, with long-term current use of insulin (HCC) Status post corneal transplant 1 Occurrences starting 01/02/2025 until 06/26/2026 [facility] Work Phone: Comment on above: 1 Occurrences starting 01/02/2025 until 06/26/2026 Hemoglobin A1c/Hemoglobin.total in Blood HEMOGLOBIN A1C (POC) Lab Routine Controlled type 2 diabetes mellitus without complication, with long-term current use of insulin (HCC) Ordered: 12/05/2024 [facility] Work Phone: Comment on above: Ordered: 12/05/2024 End: 07-11-2024 KUNAL SCREENING KUNAL SCREENING Radiology Routine Encounter for screening mammogram for breast cancer 1 Occurrences starting 06/12/2023 until 07/11/2024 [facility] Work Phone: Comment on above: 1 Occurrences starting 06/12/2023 until 07/11/2024 MG Breast Screening KUNAL SCREENIN G Radiology Routine Encounter for screening mammogram for breast cancer 07/11/2024 9:46 AM EST [facility] Work Phone: End: 09-19-2023 NM Heart Perfusion W stress and W radionuclide IV Nuclear Stress Test Cardiac Nuclear Medicine Routine Encounter for other preprocedural examination Once for 1 Occurrences starting 09/19/2023 until 09/19/2023 [facility] Work Phone: Comment on above: Once for 1 Occurrences starting 09/19/19 24 until 09/19/[address] [facility] Work Phone: Patient referral [facility] Work Phone: Perq thrmbc/nfs dial ysis circuit img dx angrph PERC THROMBECTOMY/INFUSION FOR THROMBOLYSIS AV FISTULA,FLUORO GUIDED,INCLUSIVE OF RAD S&I ESRD (end stage renal disease) ([facility]) [facility] CATH POST VOID RESIDUAL POST VOID RES IDUAL Procedures Routine Acute left flank pain Gross hematuria Acute cystitis with hematuria Other symptoms and signs involving the genitourinary system Ordered: 11/30/2021 [facility] Work Phone: Comment on above: Ordered: 11/30/2021 Pulmonary Stress Mey t (6 Min. Walk) Pulmonary Stress Test (6 Min. Walk) PFT Routine Pre-transplant evaluation for kidney transplant 04/17/2025 9:40 AM EDT [facility] Work Phone: End: 03-11-2023 Screening mammography bi 2-view breast inc cad KUNAL SCREENING Radiology Routine Encounter for screening mammogram for breast cancer 1 Occurrences starting 02/09/2022 until 03/11/2023 [facility] Work Phone: Comment on above: 1 Occurrences starting 02/09/2022 until 03/11/2023 SURGICAL PATHOLOGY [facility] Work Phone: Comment on above: Release Upon Ordering for 1 Occurrences starting 11/15/2022, 1 completed End: 05-01-2025 US AV fistula US A/V FISTULA GRAFT [facility]L [facility] Vascular Lab Routine ESRD on dialysis ([facility]) 1 Occurrences starting 05/01/2024 until 05/01/2025 [facility] Work Phone: Comment on above: 1 Occurrences starting 05/01/2024 until 05/01/2025 End: 12-18-2025 US AV fistula US A/V FISTULA GRAFT [facility] Vascular Lab Routine ESRD on dialysis (HCC) 1 Occurrences starting 12/18/2024 until 12/18/2025 [facility] Work Phone: Comment on above: 1 Occurrences starting 12/18/2024 until 12/18/2025 [facility] Immunizations Immunization Date Immunization Notes Care Provider [facility] 05-13-2025 hepatitis B vaccine, adult dosage Maldonado Raza MD Work Phone: [facility] 05-13-2025 influenza, seasonal, injectable, preservative free Maldonado Raza MD Work Phone: [facility] 02-06-2025 hepatitis A and hepatitis B vaccine Maldonado Raza MD Work Phone: [facility] 12-31-2024 tetanus toxoid, redu amor diphtheria toxoid, and acellular pertussis vaccine, adsorbed Dr. Maldonado Raza MD Work Phone: [facility] 12-05-2024 hepatitis A and hepatitis B vaccine Maldonado Raza MD Work Phone: [facility] 06-13-2024 COVID-19 vaccine, ag e 12+ yr (PFIZER-BIONTECH COMIRNATY) Maldonado Raza MD Work Phone: [facility] 06-29-2023 COVID-19 vaccine, ag e 12+ yr, 2022- season (PFIZER-BIONTECH) Maldonado Raza MD Work Phone: [facility] Work Phone: 06-01-2023 influenza, injectabl e, quadrivalent, preservative free Maldondao Raza MD Work Phone: [facility] Work Phone: 06-01-2023 influenza virus vaccine, unspecified formulation Syeda Frost RN [facility] 10-13-2022 Covid (Pfizer) Dr. Maldonado Raza MD Work Phone: [facility] 10-13-2022 COVID-19 original vaccine, age 12+ yr, monovalent (PFIZER-BIONTECH - DIMAS TOP) Syeda Frost RN [facility] Work Phone: Comment on above: Result Comment: 2022: TPV50 10-12-2022 pneumococcal conjuga te (PCV20) vaccine, 20 valent (PREVNAR 20) Maldonado Raza MD Work Phone: [facility] 09-20-2022 Covid (Pfizer) Dr. 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 Maldonado Raza MD Work Phone: [facility] 11-16-2021 pneumococcal conjuga te vaccine, [address] (I-Stat) Work Phone: [facility] 10-11-2021 pneumococcal conjuga te (PCV20) vaccine, 20 valent (PREVNAR 20) Maldonado Raza MD Work Phone: [facility] 06-25-2021 influenza, seasonal, injectable Ct (I-Stat) Work Phone: [facility] Work Phone: 06-05-2020 influenza, seasonal, injectable Ct (I-Stat) Work Phone: [facility] Work Phone: 05-15-2020 tuberculin skin test ; purified protein derivative solution, intradermal Luna Thomas MD Work Phone: [facility] 05-14-[address] (I-Stat) Work Phone: [facility] Work Phone: 06-22-2019 influenza virus vaccine, unspecified formulation YOUSUF TRISTIN REED [facility] 06-22-2019 influenza, injectabl e, quadrivalent, preservative free Dr. Maldonado Raza MD Work Phone: [facility] 06-22-2019 influenza, seasonal, injectable Ct (I-Stat) Work Phone: [facility] 06-19-2019 tuberculin skin test ; purified protein derivative solution, intradermal Luna Thomas MD Work Phone: [facility] 09-21-2018 tuberculin skin test ; purified protein derivative solution, intradermal Luna Thomas MD Work Phone: [facility] 06-04-2018 influenza nasal, unspecified formulation Ct (I-Stat) Work Phone: [facility] Work Phone: 06-04-2018 influenza virus vaccine, unspecified formulation YOUSUF CROW DO [facility] 06-04-2018 Influenza, injectabl e, Madin Hosmer Canine Kidney, preservative free, quadrivalent No PCP None [id number] Work Phone: 03-09-2018 tuberculin skin test ; purified protein derivative solution, intradermal Luna Thomas MD Work Phone: [facility] 02-23-2018 tuberculin skin test ; purified protein derivative solution, intradermal Luna Thomas MD Work Phone: [facility] 06-22-2017 influenza nasal, unspecified formulation Ct (I-Stat) Work Phone: [facility] Work Phone: 06-22-2017 influenza virus vaccine, unspecified formulation YOUSUF CROW DO [facility] 06-22-2017 influenza, injectabl e, quadrivalent, preservative free Dr. Maldonado Raza MD Work Phone: [facility] 06-22-2017 influenza, seasonal, injectable Ct (I-Stat) Work Phone: [facility] Work Phone: 07-06-2015 influenza virus vaccine, unspecified formulation YOUSUF CROW DO [facility] 07-06-2015 influenza, injectabl e, quadrivalent, contains preservative Ct (I-Stat) Work Phone: [facility] 07-06-2015 influenza, injectabl e, quadrivalent, preservative free Dr. Maldonado Raza MD Work Phone: [facility] 07-06-2015 influenza, seasonal, injectable No PCP None TR-Khijtlncir-Zor her Work Phone: 09-04-2014 pneumococcal polysaccharide vaccine, [address] (I-Stat) Work Phone: [facility] Work Phone: 06-05-2014 influenza virus vaccine, unspecified formulation YOUSUF CROW DO [facility] 06-05-2014 influenza, injectabl e, quadrivalent, preservative free Dr. Maldonado Raza MD Work Phone: [facility] 06-05-2014 influenza, seasonal, injectable Ct (I-Stat) Work Phone: [facility] 06-07-2013 influenza virus vaccine, unspecified formulation Ct (I-Stat) Work Phone: [facility] Work Phone: 11-02-2012 tetanus toxoid, redu amor diphtheria toxoid, and acellular pertussis vaccine, adsorbed Ct (I-Stat) Work Phone: [facility] Work Phone: 05-31-2012 influenza virus vaccine, unspecified formulation Ct (I-Stat) Work Phone: [facility] 05-31-2012 pneumococcal polysaccharide vaccine, [address] (I-Stat) Work Phone: [facility] NEGATED: Highlighted row has not occurred!05-17-2019 influenza, injectable, quadrivalent, preservative free Ct (I-Stat) Work Phone: [facility] Comment on above: Deferred: Patient Re fused - flu vaccine nursing protocol Payers Date Payer Category Payer Self-pay [id number] 2023 Private Health Insurance [facility] DUAL COMPLETE [facility] DUAL COMPLETE [id number] 2023-Present [address] [address] [place] [address] [id number] 2022 Medicare (Managed Care) 1.2. [id number] 2022 Dual Eligibility Medicare/Medicaid Organization [id number] 2022 Private Health Insurance [id number] 2018 Medicaid MEDICAID [facility] MEDICAID [id number] 2018-Present [phone] [address] [place] [address] Medicaid [id number] 2018 Medicaid [id number]. [id number] .[id number] 2017 Medicaid [id number] 2017 Medicare MEDICARE MEDICAR E A AND B [id number] 2017-Present [phone] [address] [address] [place] [address] Medicare [id number] 2017 Medicare [id number]. 1.13.159.2 .[id number] 2012 Medicare [id number] 1965 Unknown [id number] .840.1.893489.3.579.2 .627 1965 Unknown [id number] .840.1.221454.3.579.2 .1242 1965 Unknown [id number] .840.1.630119.3.579.2 .1242 1965 Unknown [id number] .840.1.677048.3.579.2 .1244 1965 Unknown [id number] .16840.1.193092.3.579.2 .1244 1964 Unknown [id number] .16840.1.969219.3.579.2 .124 1964 Unknown [id number] .16840.1.641629.3.579.2 .1245 1964 Unknown [id number] 2.16.840.1.972257.3.579.2 .1245 1964 Unknown [id number] 2.16.840.1.820836.3.579.2 .124 1964 Unknown [id number] 2..840.1.227364.3.579.2 .1244 1964 Unknown [id number] 2..840.1.903123.3.579.2 .124 1964 Unknown [id number] 2.840.1.812883.3.579.2 .1244 1965 Unknown [id number] 2.840.1.718682.3.579.2 .1245 Medicare MEDICARE PART A B [id number] Unknown [id number] 2.16.840.1.766977.3.579.2 .273 Unknown [id number] 2.16.840.1.700331.3.579.2 .273 Unknown [id number] 2.16.840.1.553891.3.579.2 .273 Unknown [id number] 2.16.840.1.131355.3.579.2 .273 Unknown [id number] 2.16840.1.376407.3.579.2 .273 Unknown [id number] 2.16.840.1.558340.3.579.2 .273 Unknown [id number] 2.16.840.1.327381.3.579.2 .273 Unknown [id number] 2.16.840.1.956962.3.579.2 .273 Unknown [id number] 2.16840.1.162598.3.579.2 .273 Unknown Unknown [facility] *DO NOT USE* [id number] Unknown [id number] 2.16.840.1.795554.3.579.2 .462 Unknown [id number] 2.16.840.1.426501.3.579.2 .462 Unknown [id number] 2.16.840.1.417743.3.579.2 .462 Unknown [id number] 2.16.840.1.027961.3.579.2 .462 Unknown [id number] 2.16840.1.440452.3.579.2 .462 Unknown [id number] 2.16.840.1.576197.3.579.2 .462 Social History Date Type Detail Facility Start: 03-22-2012 End: 05-08-2024 Tobacco smoking status NHIS Ex-smoker [facility] Start: 09-04-2002 End: 09-04-2005 History of tobacco use Current smoker [facility] Start: 09-04-2002 End: 09-04-2005 History of tobacco use Cigarette Smoker [facility] Start: 11-30-2021 End: 02-20-2025 Alcohol intake Current non-drinker of alcohol (finding) [facility] Start: 1965 Sex Assigned At Not on file C [facility] Start: 11-22-2021 End: 11-26-2024 Exposure to SARS-CoV-2 (event) Not sure [facility] Work Phone: Start: 03-22-2012 End: 02-16-2023 Former smoker Former smoker [facility] Work Phone: Start: 03-22-2012 End: 05-08-2024 Tobacco use and exposure Smokeless tobacco non-user [facility] Work Phone: Start: 05-02-2022 Tobacco Comment quit march 10 [facility] Start: 06-21-2022 End: 09-19-2022 Tobacco smoking status GAIS Unknown if ever smoked [facility] Start: 09-06-2019 Spouse/ Signif icant Other [facility] Start: 01-11-2021 Non-smoker [facility] Start: 1965 Sex Assigned At Female W [facility] Sex Assigned At Sex [facility] Start: 02-16-2023 End: 02-23-2023 Tobacco use panel [facility] Work Phone: Start: 08-05-2012 End: 07-30-2022 Adult Depression Screening Assessment 0 [facility] Work Phone: (I/We) worried wheth er (my/our) food would run out before (I/we) got money to buy more. Never true [facility] Has the [employer], or [employer] threatened to shut off services in your home in past 12Mo No [facility] Are you now , , , , never or living with a partner? [facility] How often to you hav e a drink containing alcohol? Never [facility] How hard is it for y ou to pay for the very basics like food, housing, medical care, and heating Somewhat hard [facility] Do you feel stress - tense, restless, nervous, or anxious, or unable to sleep at night because your mind is troubled all the time - these days [OSQ] To some extent [facility] The food that (I/we) bought just didn't last, and (I/we) didn't have money to get more. Often true [facility] Start: 07-23-2024 Alcoholic beverage intake Lifetime non-drinker (finding) [facility] Work Phone: Medical Equipment Procedure Code Equipment Code Equipment Origin al Text Equipment Identifier Dates Graft 6mm Standa [address] Wall Madison-Dae 40cm Vascular Line Sterile Latex Free - [id number] Start: 10-03-2019 Graft 8mm Thin W all Madison-Dae 40cm 30cm Vascular Stretch Removable Ring Line - [id number] Start: 04-21-2021 Advanta Slider G ds 4-7mm X 45cm Sw [id number] Start: 04-21-2021 Comment on above: Description: TEETEE Oneill Graft Flair 8mm 9fr Flared Eptfe Carbon 50mm 80cm Endovascular Self - [id number] Start: 05-15-2019 [id number], [id number], [id number], [id number], [id number] Start: 04-05-2017 End: 12-05-2024 Comment on above: Test blood sugar(s) 3 times daily. Dx: Type 2 DM - Uncontrolled E11.65 Insulin: Yes Use one needle per d ose. one per day. Use twice daily as d irected. Use one needle per d ose four times per day. PATCH,VASC .8CM X 8CM FDA Start: 12-09-2018 PATCH,VASC .8CM X 8CM FDA Start: 12-09-2018 PATCH,VASC .8CM X 8CM FDA Start: 12-09-2018 Cornea Tissue Pre-Loaded Dmek - [id number] Start: 11-09-2023 Gas Ispan Constellation Intraocular Vision System Sf6 125gm - [id number] Start: 11-09-2023 Comment on above: Description: 20% Graft Fluency Pl us 10mm 9fr Eptfe Carbon 80mm 117cm Stent 2 Layer Kink - [id number] Start: 05-16-2024 PATCH,VASC .8CM X 8CM FDA Start: 12-09-2018 PATCH,VASC .8CM X 8CM FDA Start: 12-09-2018 Goals Date Patient Goal Desired Activity /State Personal health goal Comment on above: Formatting of this n ote might be different from the original. Pt wants more energy Personal health goal Comment on above: Formatting of this n ote might be different from the original. Prevent falls Personal health goal Comment on above: Formatting of this n ote might be different from the original. Patient has the following Chronic Kidney Disease goals: Two PCP visits annually Education provided and reviewed with patient - sent on 02/24/23 CKD JEANNETTE Education - CKD (ALL) Patient will meet these goals by: 02/25/24 (describe interventions done by PCC) Pt's Goal: Maintain / Improve health status. Formatting of this n ote might be different from the original. Patient has the following Chronic Kidney Disease goals: Two PCP visits annually Education provided and reviewed with patient - sent on 02/24/23 CKD JEANNETTE Education - CKD (ALL) Patient will meet these goals by: 02/25/24 (describe interventions done by PCC) Pt's Goal: Maintain / Improve health status, prevent complications. 10/06/23 Pt's Goal: Get a new Kidney, Pt has one more test to complete to determine if she is eligible for a transplant.. Personal health goal Personal health goal Comment on above: Formatting of this n ote might be different from the original. This patient has the following Chronic Kidney Disease Health Maintenance goals: Two PCP visits annually, Nephrology visit annually, and Renal panel twice annually This patient has the following education goals: CKD Zones, Renal Diet Basics, and Controlling Potassium Patient will meet these goals by: 09/03/2024 (describe interventions done by PCC) Formatting of this n ote might be different from the original. This patient has the following Congestive Heart Failure Health Maintenance goals: Two PCP Visits annually and Medication review by PCP or Pharmacy once a year This patient has the following education goals: Your Guide to Managing Heart Failure, Heart Failure Zones , Keeping Track of Weight , Activity Guidelines, Exercise Guidelines, and Understanding Heart Failure Patient will meet these goals by 09/03/2024 (describe interventions done by PCC) Comment on above: Formatting of this n ote might be different from the original. Pt wants more energy Comment on above: Formatting of this n ote might be different from the original. Prevent falls Comment on above: Formatting of this n ote might be different from the original. Patient has the following Chronic Kidney Disease goals: Two PCP visits annually Education provided and reviewed with patient - sent on 02/24/23 CKD JEANNETTE Education - CKD (ALL) Patient will meet these goals by: 02/25/24 (describe interventions done by PCC) Pt's Goal: Maintain / Improve health status. Functional Status Date Assessment Result Facility 01-30-2025 [address] [facility] Work Phone: 01-13-2025 Are you deaf, or do you have serious difficulty hearing No 01/13/2025 10:10 PM Josefina Anglin RN No [facility] 01-13-2025 Are you blind, or do you have serious difficulty seeing, even when wearing glasses No 01/13/2025 10:10 PM Josefina Anglin RN No [facility] 01-13-2025 Do you have serious difficulty walking or climbing stairs No 01/13/2025 10:10 PM EDT Josefina Reaves RN No [facility] 01-13-2025 Do you have difficul ty dressing or bathing No 01/13/2025 10:10 PM EDT Josefina Reaves RN No [facility] 01-13-2025 Because of a physica l, mental, or emotional condition, do you have difficulty doing errands alone such as visiting a physician's office or shopping No 01/13/2025 10:10 PM EDT Josefina Reaves RN No [facility] 06-21-2023 Are you deaf, or do you have serious difficulty hearing No 06/21/2023 6:39 PM EDKaitlynn Shukla RN [facility] 06-21-2023 Are you blind, or do you have serious difficulty seeing, even when wearing glasses No 06/21/2023 6:39 PM Kaitlynn Jamil RN [facility] 06-21-2023 Do you have serious difficulty walking or climbing stairs No 06/21/2023 6:39 PM EDT Kaitlynn Barger RN No [facility] 06-21-2023 Do you have difficul ty dressing or bathing No 06/21/2023 6:39 PM Kaitlynn Jamil RN [facility] 06-21-2023 Because of a physica l, mental, or emotional condition, do you have difficulty doing errands alone such as visiting a physician's office or shopping No 06/21/2023 6:39 PM Kaitlynn Jamil RN [facility] 02-01-2023 Functional Status Room check performed [facility] 02-01-2023 Functional Status NPO Status confirmed [facility] 02-01-[address] [facility] 03-29-2022 PHQ-9 [id number] Moder ate (06-17) XR-[id number] Work Phone: Mental Status Date Assessment Result Facility 01-30-2025 Cognitive function Voice/Name [facility] Work Phone: 01-13-2025 Because of a physica l, mental, or emotional condition, do you have serious difficulty concentrating, remembering, or making decisions No 01/13/2025 10:10 PM EDT Josefina Reaves, JESSICA No [facility] 06-21-2023 Because of a physica l, mental, or emotional condition, do you have serious difficulty concentrating, remembering, or making decisions No 06/21/2023 6:39 PM EDT Kaitlynn Barger RN No [facility] 02-01-2023 Mental Status Orientation Oriented x 4 [facility] 02-01-2023 Mental Status [facility] 02-01-2023 Mental Status [facility] 09-19-2022 Cognitive function Level Of Cons ciousness Awake;Alert;Appropriate;Fol lows Commands [facility] Work Phone: Clinical Notes 02-14-2018 to 05-13-2025 Maldonado Raza MD - 05/13/2025 9:40 AM EDTTelephone Encounter - Edie Samayoa LPN - 04/24/2025 8:15 AM EDTTelephone Encounter - Edie Samayoa LPN - 04/24/2025 8:15 AM EDT Note Date & Type Note Facility 05-13-2025 Note HNO ID: [id number] Author: MALDONADO RAZA MD Service: ? Author Type: Physician Type: Progress Notes Filed: 05/13/2025 09:51 Note Text: Subjective Sandy Bhatti is a 60 year old female here with spouse She had a 6 minute walk test for pre kidney transplant evaluation at [facility] on 04/17/25. She walked 198 m [...] mouth twice daily as needed for Constipation. NEPHRO-PETEY 0.8 mg tab Take 1 tablet by [...] Primary hypertension - ICD9: 401.9, ICD10: I10 (more content not included)... [facility] 05-13-2025 History of Present illness Narrative Subjective Sandy Bhatti is a 60 year old female here with spouse She had a 6 minute walk test for pre kidney transplant evaluation at [facility] on 04/17/25. She walked 198 m [...] mouth twice daily as needed for Constipation. NEPHRO-PETEY 0.8 mg tab Take 1 tablet by [...] Size: Large Adult) Pulse 64 Temp 36.6 C (97.8 F) (Temporal) Wt 56.5 kg (124 lb 9 oz) SpO2 98% BMI 22.78 kg/m Physical Exam Constitutional: General: She is not [...] AGE 20+ YR (ENGERIX-B, RECOMBIVAX HB) Maldonado Raza MD documented in this encounter [facility] 04-24-2025 Telephone encounter Note Patient scheduled, 04/29/2025 for 40 minutes. Edie Samayoa LPN [facility] 04-24-2025 Miscellaneous Notes Patient scheduled, 04/29/2025 for 40 minutes. Edie Samayoa LPN Appointment needed 40 minutes. Pt reports she spoke with kidney transplant [...] her next appt with pcp is 06/10/25. documented in this encounter [facility] 04-23-2025 Telephone encounter Note Appointment needed 40 minutes. [facility] 04-23-2025 Telephone encounter Note Pt reports she spoke with kidney transplant [...] her next appt with pcp is 06/10/25. [facility] 03-12-2025 Telephone encounter Note Patient has been identified by name and date of : Yes Patient phones for refill(s): Requested Prescriptions Pending Prescriptions Disp Refills metoprolol tartrate, short acting, (LOPRESSOR) 25 mg tablet 180 tablet 1 Sig: Take 1 tablet by mouth every 12 hours. Date of last office visit in primary care: 02/06/2025 Date of next office visit in primary care: 06/10/2025 Please advise. Thank you. Edie Samayoa LPN. [facility] 03-12-2025 Miscellaneous Notes Patient has been identified by name and date of : Yes Patient phones for refill(s): Requested Prescriptions Pending Prescriptions Disp Refills metoprolol tartrate, short acting, (LOPRESSOR) 25 mg tablet 180 tablet 1 Sig: Take 1 tablet by mouth every 12 hours. Date of last office visit in primary care: 02/06/2025 Date of next office visit in primary care: 06/10/2025 Please advise. Thank you. Edie Samayoa LPN. documented in this encounter [facility] 02-20-2025 Note HNO ID: [id number] Author: FER DURON MD Service: ? Author Type: Physician Type: Progress Notes Filed: 02/21/2025 10:01 Note Text: Date: February 20, 2025 Chief Complaint: Hospital F/U HISTORY OF PRESENT ILLNESS: Sandy Bhatti is a 60 year old female with [...] colic 06/12/2007 Secondary hyperparathyroidism of renal origin ([facility]) 06/20/2023 Steal syndrome dialysis vascular access 05/17/2019 [...] COLONOSCOPY SCREENING 11/15/2022 COLOSTOMY/SKIN LEVEL CECOSTOMY 2007 [id number], reversed 2006 CREATION OF AVF, PERCUTANEOUS USING [...] lung cancer Coronary Artery Disease Brother dec. [place] 57 y.o. No Known Problems Maternal Grandmother No Known Problems Maternal Grandfather No Known Problems Paternal Grandmother No Known Problems Paternal Grandfather SOCIAL HISTORY: Tobacco Use: Types: Cigarettes d/c 2013 Alcohol Use: No Drug Use: No (more content not included)... [facility] 02-20-2025 History of Present illness Narrative Date: February 20, 2025 Chief Complaint: Hospital F/U HISTORY OF PRESENT ILLNESS: Sandy Bhatti is a 60 year old female with [...] kidney disease) stage V requiring chronic dialysis ([facility]) 03/01/2018 Dr. Pendleton, nephrology. Congestive heart failure (HCC) Constipation Depression 09/04/2006 Encounter for screening for stenosis of carotid artery 03/27/2023 Less then 50% calcification bilaterally. ESRD on dialysis ([facility]) 05/16/2019 GERD (gastroesophageal reflux disease) Hemorrhoids History [...] colic 06/12/2007 Secondary hyperparathyroidism of renal origin ([facility]) 06/20/2023 Steal syndrome dialysis vascular access 05/17/2019 [...] COLONOSCOPY SCREENING 11/15/2022 COLOSTOMY/SKIN LEVEL CECOSTOMY 2007 [id number], reversed 2006 CREATION OF AVF, PERCUTANEOUS USING [...] lung cancer Coronary Artery Disease Brother dec. [place] 57 y.o. No Known Problems Maternal Grandmother [...] mouth twice daily as needed for Constipation. NEPHRO-PETEY 0.8 mg tab Take 1 tablet by [...] kg (132 lb 0.9 oz) BMI 24.15 kg/m Physical Exam Vitals reviewed. Constitutional: Appearance: Normal [...] complication, with long-term current use of insulin ([facility]) - ICD9: 250.80, V58.67, ICD10: E11.69, Z79.4 Goal is to maintain her hemoglobin A1c less than 7. Fer Duron MD [facility] Follow-up in 3 months Prior to entering [...] 51% of my time was spent with yxre-ut-ldnh conversation with the patient. I have discussed the diagnosis and recommended treatment, alternative therapies and other options in detail. I've discussed the best benefit and side effects of these recommended treatments. I've attempted to answer all the questions to the patient's satisfaction and understanding. Fer Duron MD documented in this encounter [facility] 02-06-2025 Note HNO ID: [id number] Author: MALDONADO RAZA MD Service: ? Author Type: Physician Type: Progress Notes Filed: 02/06/2025 12:48 Note Text: This note was created using [employer]. Subjective Patient presents with: Hospital F/U Recording using [employer] software for draft documentation of the visit was discussed with the patient/authorized agricultural sales representative; all questions welcomed and answered. Patient/authorized agricultural sales representative agreed to proceed Sandy Bhatti is a 60 year old female. Pulmonary Edema: - Hospitalized at [facility] last Monday for severe dyspnea; initially [...] the feet. CHF: - Followed by a housing quality standard inspector in [place]; has an upcoming appointment. [...] mouth twice daily as needed for Constipation. NEPHRO-PETEY 0.8 mg tab Take 1 tablet by [...] Left lower le+ Pitting Edema present. Neurological: Men (more content not included)... [facility] 02-06-2025 History of Present illness Narrative This note was created using [employer]. Subjective Patient presents with: Hospital F/U Recording using [employer] software for draft documentation of the visit was discussed with the patient/authorized agricultural sales representative; all questions welcomed and answered. Patient/authorized agricultural sales representative agreed to proceed Sandy Bahtti is a 60 year old female. Pulmonary Edema: - Hospitalized at [facility] last Monday for severe dyspnea; initially [...] the feet. CHF: - Followed by a housing quality standard inspector in [place]; has an upcoming appointment. Review of Systems [...] mouth twice daily as needed for Constipation. NEPHRO-PETEY 0.8 mg tab Take 1 tablet by [...] Objective BP 124/60 Pulse 68 Temp 36.8 C (98.3 F) (Temporal) Wt 58.9 kg (129 lb 13.6 oz) SpO2 97% BMI 23.75 kg/m Physical Exam Constitutional: General: She is not [...] ambulation. Patient reported using as directed. Maldonado Raza MD documented in this encounter [facility] 01-30-2025 Progress note [facility] 01-30-2025 Discharge summary Note Date/Time January 30, 2025 9:42am [facility] Medical Records Department [address] [place] [address] Discharge Summary 01/30/25 0904 MR#: [id number] Acct: [id number] Name: SANDY BHATTI Rep #:[id number] : 1965 60 From: Kade Ricketts MD PCP: Dr. Maldonado Raza MD Status:A DM IN Location: [place] [address] Providers Date of Admission: 01/28/25 Date of Discharge: 01/30/25 Primary Care Physician: Dr. Maldonado Raza MD Consultations 01/28/25 10:37 Consult: Nephrology Routine Consulting Provider: [place] Reason for Consult: ESRD EMERGENT Consult: No MD Notified: Yes Date Notified: 01/28/25 Time Notified: 10:44 Method of Notification: Answering Service Reason For Visit: HYPOXIA Diagnosis Discharge Diagnosis (1) ESRD (end stage renal disease) on dialysis: Status: Chronic Code(s): N18.6 - End stage renal disease; Z99.2 - Dependence on renal dialysis Plan Patient is a 60-year-old lady with history of end-stage renal disease on hemodialysis presented with shortness of breath with associated progressive generalized weakness fever and chills 1.Acute congestive heart failure with preserved ejection fraction ? Unspecified at this point. Patient has been admitted to monitored bed treatment initiated with fluid restriction, strict input and output, low-sodium diet as well as diuretic therapy with furosemide. Patient is also on hemodialysis consult has been placed for nephrology for dialysis orders to help manage patient fluid status. As part of her management 2D echo was ordered to assess EF ? 01/29/2025; 2D echo obtained demonstrated estimated ejection fraction of 55-60 %. Overall normal LV systolic function No significant valvular abnormality noted. No previous echo to compare. Patient remains on diuretic therapy 2. Acute viral syndrome ? Patient initial evaluation with SARS-CoV-2 influenza and RSV PCR came back negative. Subsequently ordered acute viral respiratory panel to rule out other possible viral etiology. Plan is to continue with symptom management for now. 3. End-stage renal disease on hemodialysis ? Dialysis days Wednesdays and Fridays. Consult placed to nephrology for dialysis orders. Ordered daily BMP for subsequent eval ? Creatinine up to 9.08 and potassium was 5.3. 4. Anemia ? Secondary to chronic disorder monitoring H&H and transfuse if patient becomes symptomatic or hemoglobin falls below 7 5. Diabetes mellitus type II Patient is on long-acting insulin as well as scheduled short acting insulin did continue with home regimen. In addition patient was placed on Accu-Cheks a.c. and at bedtime and covered with sliding scale insulin 6. Hypertension ? Blood pressure control not optimal, resume home medication added hydralazine as needed for systolic blood pressure greater than 160 7. Hypothyroidism ? Patient is on levothyroxine home dose continued 8. Depression with anxiety ? Per history patient currently not on any treatment 9. Dyslipidemia ?Patient is on statin therapy, continued at home dose 10. DVT prophylaxis ? Subcu heparin 11. Acute hypoxia secondary to congestive heart failure ? Patient was assessed for home oxygen prior to discharge I have reviewed the oxygen testing, and this patient qualifies for the home equipment and portability. The patient is mobile in the home and the community. Medications at Discharge Home Medications aspirin 81 mg tablet,delayed release (Adult Low Dose Aspirin) 81 mg PO DAILY heart health 08/14/18 atorvastatin 40 mg tablet 40 mg PO QHS CHOLESTEROL 08/14/18 vitamin B complex-vitamin C-folic acid 0.8 mg tablet (Kenneth-Petey) 1 tab PO DAILY SUPPLEMENT 01/11/21 levothyroxine 125 mcg tablet 125 mcg PO DAILY THYROID 05/31/23 lisinopril 40 mg tablet 40 mg PO DAILY BLOOD PRESSURE 05/31/23 sucroferric oxyhydroxide 500 mg chewable tablet (Velphoro) 500 mg PO TID PHOSPHATE BINDER 05/31/23 amlodipine 10 mg tablet 10 mg PO DAILY 01/28/25 clonidine HCl 0.2 mg tablet 0.2 mg PO BID 01/28/25 insulin glargine 100 unit/mL (3 mL) subcutaneous pen (Lantus Solostar U-100 Insulin) 48 unit subcut QHS 01/28/25 insulin lispro 100 unit/mL subcutaneous pen 8 unit subcut .COMPLEX 01/28/25 metoprolol tartrate 25 mg tablet 25 mg PO Q12H 01/28/25 sumatriptan succinate 50 mg tablet 50 mg PO BID PRN migraine 01/28/25 furosemide 40 mg tablet (Lasix) 40 mg PO DAILY #90 tabs 01/30/25 Hospital Course Summary of Care Provided Minutes Spent on Discharge: 35 Physical Exam Narrative GENERAL: Patient appears fatigued HEENT: Atraumatic; normocephalic EYES; Anicteric, Normal Conjunctiva NECK; supple, normal thyroid, RESPIRATORY: Diminished to auscultation CARDIOVASCULAR: Regular S1 S2, GI: soft, normoactive bowel sounds, : No Renal angle tenderness; EXTREMITIES: AV fistula right arm MUSCULOSKELETAL: no muscle wasting NEURO: Awake; no lateralizing signs. SKIN: No Rash PSYCH; Flat affect Weight / BMI Weight Weight: 55.4 kg Body Mass Index (BMI) 20.8 ABG / Lab / Microbiology Data 01/30/25 05:52 01/30/25 05:52 Laboratory: Laboratory Results - last 24 hr 01/29/25 10:39: POC Glucose 143 H 01/29/25 11:32: POC Glucose 116 H 01/29/25 16:26: POC Glucose 77 01/29/25 22:34: POC Glucose 156 H 01/30/25 05:52: WBC 5.2, RBC 2.72 L, Hgb 8.3 L, Hct 25.5 L, MCV 93.8, MCH 30.5, MCHC 32.5, RDW Std Deviation 46.0 H, RDW Coeff of Alvina 13.7, Plt Count 166, MPV 9.6, Immature Gran % (Auto) 0.400, Neut % (Auto) 66.4, Lymph % (Auto) 24.6, [place]% (Auto) 6.3, Eos % (Auto) 1.0, Baso % (Auto) 1.3 H, Absolute Neuts (auto) 3.5, Absolute Lymphs (auto) 1.29, Nucleated RBC % 0, Sodium 135, Potassium 4.9, Chloride 99, Carbon Dioxide 27.9, Anion Gap 9, BUN 27 H, Creatinine 4.78 H, Estim Creat Clear Calc 10.67 L, Est GFR (MDRD) Non-Af 10 L, BUN/Creatinine Ratio 5.6 L, Glucose 186 H, Calcium 9.1 01/30/25 06:34: POC Glucose 179 H 01/30/25 08:58: POC Glucose 180 H Microbiology: Microbiology 01/28/25 08:19 Mucosa - Nose SARS-CoV-2, Influenza & RSV (PCR) - Final D/C Instructions Discharge Diet: 8 Cup Fluid Restriction and Renal Diet Discharge Activity: Return to Normal Activity Call your doctor if you observe: Fever of 101 or Higher, Shortness of breath, Fainting spells and Chest pain DC O2, CPAP, BIPAP Needs Home O2 Discharge instructions: Yes Type of respiratory needs?: Oxygen Oxygen frequency: With Ambulation Oxygen liters per minute during Ambulation: 2 DC home with Oxygen: Yes Home O2 MD Review: I have reviewed the oxygen testing, and the patient qualifies for home oxygen equipment and portability. The patient is mobile in the home and the community. Meaningful Use Info Meaningful Use Meaningful Use Diagnoses (Choose all that apply): CHF CHF YVES/ARB ordered at discharge?: Yes Documented LVEF (%): 55 Ischemic Stroke Statin Dosing Therapy Reference: STATIN DOSE THERAPY REFERENCE: * Patients > 75 years receive moderate or high dose statin therapy. * Patients 75 years or YOUNGER should receive HIGH intensity statin dose unless contraindicated. You will be required to document reason for non-treatment if statin daily dose does not meet guidelines. HIGH DOSE STATIN THERAPY DAILY Atorvastatin > than or = to 40 mg Rosuvastatin > than or = to 20 mg Amlodipine + Atorvastatin > than or = to 2.5/40 mg Ezetimibe + Simvastatin 10/80 mg Simvastatin 80mg Discharge Plan Admission Admit Date/Time: 01/28/25 09:25 Attending Provider: Kade Ricketts Primary Care Provider: Maldonado Raza Consulting Providers: [place] Discharge Orders/Prescriptions Prescriptions: New furosemide [Lasix] 40 mg tablet 40 mg PO DAILY Qty: 90 0RF Continued aspirin [Adult Low Dose Aspirin] 81 mg tablet,delayed release (DR/EC) 81 mg PO DAILY atorvastatin 40 mg tablet 40 mg PO QHS Kenneth-Petey 0.8 mg Tablet 1 tab PO DAILY lisinopril 40 mg tablet 40 mg PO DAILY Velphoro 500 mg tablet,chewable 500 mg PO TID levothyroxine 125 mcg tablet 125 mcg PO DAILY sumatriptan succinate 50 mg tablet 50 mg PO BID PRN (Reason: migraine) clonidine HCl 0.2 mg tablet 0.2 mg PO BID amlodipine 10 mg tablet 10 mg PO DAILY insulin lispro 100 unit/mL insulin pen 8 unit SUBCUT .COMPLEX Rx Instructions: INJECT 8 UNITS SUBCUTANEOUSLY THREE TIMES DAILY BEFORE MEALS, Add 1 UNIT foreach 50 mg/dl above 150. metoprolol tartrate 25 mg tablet 25 mg PO Q12H insulin glargine [Lantus Solostar U-100 Insulin] 100 unit/mL (3 mL) insulin pen 48 unit subcut QHS Referrals / Follow Up: Maldonado Raza MD [Primary Care Provider] - Within 2 Weeks Disposition Disposition (needs filled in before D/C Order can be placed): Home, Self Care Charges/Coding Visit Charges Inpatient E&M: 64379 Disch Hosp >30min 01/30/25 0942 <Electronically signed by Kade Ricketts MD> Cosigner Signature (if applicable): CC: Dr. Kade Ricketts MD; Dr. Maldonado Raza MD~ Signed [facility] Work Phone: [phone]) 180-642405-29-2025 Discharge summary [facility] Medical Records Department [address] [place] [id number] Discharge Summary 01/30/25 0904 MR#: [id number] Acct: [id number] Name: SANDY BHATTI Rep #:[id number] : 1965 60 From: Kade Ricketts MD PCP: Dr. Maldonado Raza MD Status:A DM IN Location: [facility] [id number] Providers Date of Admission: 01/28/25 Date of Discharge: 01/30/25 Primary Care Physician: Dr. Maldonado Raza MD Consultations 01/28/25 10:37 Consult: Nephrology Routine Consulting Provider: [place] Reason for Consult: ESRD EMERGENT Consult: No MD Notified: Yes Date Notified: 01/28/25 Time Notified: 10:44 Method of Notification: Answering Service Reason For Visit: HYPOXIA Diagnosis Discharge Diagnosis (1) ESRD (end stage renal disease) on dialysis: Status: Chronic Code(s): N18.6 - End stage renal disease; Z99.2 - Dependence on renal dialysis Plan Patient is a 60-year-old lady with history of end-stage renal disease on hemodialysis presented with shortness of breath with associated progressive generalized weakness fever and chills 1.Acute congestive heart failure with preserved ejection fraction ? Unspecified at this point. Patient has been admitted to monitored bed treatment initiated with fluid restriction, strict input and output, low-sodium diet as well as diuretic therapy with furosemide. Patient is also on hemodialysis consult has been placed for nephrology for dialysis orders to help manage patient fluid status. As part of her management 2D echo was ordered to assess EF ? 01/29/2025; 2D echo obtained demonstrated estimated ejection fraction of 55-60 %. Overall normal LV systolic function No significant valvular abnormality noted. No previous echo to compare. Patient remains on diuretic therapy 2. Acute viral syndrome ? Patient initial evaluation with SARS-CoV-2 influenza and RSV PCR came back negative. Subsequentlyordered acute viral respiratory panel to rule out other possible viral etiology. Plan is to continue with symptom management for now. 3. End-stage renal disease on hemodialysis ? Dialysis days Wednesdays and Fridays. Consult placed to nephrology for dialysis orders. Ordered daily BMP for subsequent eval ? Creatinine up to 9.08 and potassium was 5.3. 4. Anemia ? Secondary to chronic disorder monitoring H&H and transfuse if patient becomes symptomatic or hemoglobin falls below 7 5. Diabetes mellitus type II Patient is on long-acting insulin as well as scheduled short acting insulin did continue with home regimen. In addition patient was placed on Accu-Cheks a.c. and at bedtime and covered with sliding scale insulin 6. Hypertension ? Blood pressure control not optimal, resume home medication added hydralazine as needed for systolic blood pressure greater than 160 7. Hypothyroidism ? Patient is on levothyroxine home dose continued 8. Depression with anxiety ? Per history patient currently not on any treatment 9. Dyslipidemia ?Patient is on statin therapy, continued at home dose 10. DVT prophylaxis ? Subcu heparin 11. Acute hypoxia secondary to congestive heart failure ? Patient was assessed for home oxygen prior to discharge I have reviewed the oxygen testing, and this patient qualifies for the home equipment and portability. The patient is mobile in the home and the community. Medications at Discharge Home Medications aspirin 81 mg tablet,delayed release (Adult Low Dose Aspirin) 81 mg PO DAILY heart health 08/14/18 atorvastatin 40 mg tablet 40 mg PO QHS CHOLESTEROL 08/14/18 vitamin B complex-vitamin C-folic acid 0.8 mg tablet (Kenneth-Petey) 1 tab PO DAILY SUPPLEMENT 01/11/21 levothyroxine 125 mcg tablet 125 mcg PO DAILY THYROID 05/31/23 lisinopril 40 mg tablet 40 mg PO DAILY BLOOD PRESSURE 05/31/23 sucroferric oxyhydroxide 500 mg chewable tablet (Velphoro) 500 mg PO TID PHOSPHATE BINDER 05/31/23 amlodipine 10 mg tablet 10 mg PO DAILY 01/28/25 clonidine HCl 0.2 mg tablet 0.2 mg PO BID 01/28/25 insulin glargine 100 unit/mL (3 mL) subcutaneous pen (Lantus Solostar U-100 Insulin) 48 unit subcutQHS 01/28/25 insulin lispro 100 unit/mL subcutaneous pen 8 unit subcut .COMPLEX 01/28/25 metoprolol tartrate 25 mg tablet 25 mg PO Q12H 01/28/25 sumatriptan succinate 50 mg tablet 50 mg PO BID PRN migraine 01/28/25 furosemide 40 mg tablet (Lasix) 40 mg PO DAILY #90 tabs 01/30/25 Hospital Course Summary of Care Provided Minutes Spent on Discharge: 35 Physical Exam Narrative GENERAL: Patient appears fatigued HEENT: Atraumatic; normocephalic EYES; Anicteric, Normal Conjunctiva NECK; supple, normal thyroid, RESPIRATORY: Diminished to auscultation CARDIOVASCULAR: Regular S1 S2, GI: soft, normoactive bowel sounds, : No Renal angle tenderness; EXTREMITIES: AV fistula right arm MUSCULOSKELETAL: no muscle wasting NEURO: Awake; no lateralizing signs. SKIN: No Rash PSYCH; Flat affect Weight / BMI Weight Weight: 55.4 kg Body Mass Index (BMI) 20.8 ABG / Lab / Microbiology Data 01/30/25 05:52 01/30/25 05:52 Laboratory: Laboratory Results - last 24 hr 01/29/25 10:39: POC Glucose 143 H 01/29/25 11:32: POC Glucose 116 H 01/29/25 16:26: POC Glucose 77 01/29/25 22:34: POC Glucose 156 H 01/30/25 05:52: WBC 5.2, RBC 2.72 L, Hgb 8.3 L, Hct 25.5 L, MCV 93.8, MCH 30.5, MCHC 32.5, RDW Std Deviation 46.0 H, RDW Coeff of Alvina 13.7, Plt Count 166, MPV 9.6, Immature Gran % (Auto) 0.400, Neut % (Auto) 66.4, Lymph % (Auto) 24.6, [place]% (Auto) 6.3, Eos % (Auto) 1.0, Baso % (Auto) 1.3 H, Absolute Neuts (auto) 3.5, Absolute Lymphs (auto) 1.29, Nucleated RBC % 0, Sodium 135, Potassium 4.9, Chloride 99, Carbon Dioxide 27.9, Anion Gap 9, BUN 27 H, Creatinine 4.78 H, Estim Creat Clear Calc 10.67 L, Est GFR (MDRD) Non-Af 10 L, BUN/Creatinine Ratio 5.6 L, Glucose 186 H, Calcium 9.1 01/30/25 06:34: POC Glucose 179 H 01/30/25 08:58: POC Glucose 180 H Microbiology: Microbiology 01/28/25 08:19 Mucosa - Nose SARS-CoV-2, Influenza & RSV (PCR) - Final D/C Instructions Discharge Diet: 8 Cup Fluid Restriction and Renal Diet Discharge Activity: Return to Normal Activity Call your doctor if you observe: Fever of 101 or Higher, Shortness of breath, Fainting spells and Chest pain DC O2, CPAP, BIPAP Needs Home O2 Discharge instructions: Yes Type of respiratory needs?: Oxygen Oxygen frequency: With Ambulation Oxygen liters per minute during Ambulation: 2 DC home with Oxygen: Yes Home O2 MD Review: I have reviewed the oxygen testing, and the patient qualifies for home oxygen equipment and portability. The patient is mobile in the home and the community. Meaningful Use Info Meaningful Use Meaningful Use Diagnoses (Choose all that apply): CHF CHF YVES/ARB ordered at discharge?: Yes Documented LVEF (%): 55 Ischemic Stroke Statin Dosing Therapy Reference: STATIN DOSE THERAPY REFERENCE: * Patients > 75 years receive moderate or high dose statin therapy. * Patients 75 years or YOUNGER should receive HIGH intensity statin dose unless contraindicated. You will be required to document reason for non-treatment if statin daily dose does not meet guidelines. HIGH DOSE STATIN THERAPY DAILY Atorvastatin > than or = to 40 mg Rosuvastatin > than or = to 20 mg Amlodipine + Atorvastatin > than or = to 2.5/40 mg Ezetimibe + Simvastatin 10/80 mg Simvastatin 80mg Discharge Plan Admission Admit Date/Time: 01/28/25 09:25 Attending Provider: Kade Ricketts Primary Care Provider: Maldonado Raza Consulting Providers: [place] Discharge Orders/Prescriptions Prescriptions: New furosemide [Lasix] 40 mg tablet 40 mg PO DAILY Qty: 90 0RF Continued aspirin [Adult Low Dose Aspirin] 81 mg tablet,delayed release (DR/EC) 81 mg PO DAILY atorvastatin 40 mg tablet 40 mg PO QHS Kenneth-Petey 0.8 mg Tablet 1 tab PO DAILY lisinopril 40 mg tablet 40 mg PO DAILY Velphoro 500 mg tablet,chewable 500 mg PO TID levothyroxine 125 mcg tablet 125 mcg PO DAILY sumatriptan succinate 50 mg tablet 50 mg PO BID PRN (Reason: migraine) clonidine HCl 0.2 mg tablet 0.2 mg PO BID amlodipine 10 mg tablet 10 mg PO DAILY insulin lispro 100 unit/mL insulin pen 8 unit SUBCUT .COMPLEX Rx Instructions: INJECT 8 UNITS SUBCUTANEOUSLY THREE TIMES DAILY BEFORE MEALS, Add 1 UNIT foreach 50 mg/dl above 150. metoprolol tartrate 25 mg tablet 25 mg PO Q12H insulin glargine [Lantus Solostar U-100 Insulin] 100 unit/mL (3 mL) insulin pen 48 unit subcut QHS Referrals / Follow Up: Maldonado Raza MD [Primary Care Provider] - Within 2 Weeks Disposition Disposition (needs filled in before D/C Order can be placed): Home, Self Care Charges/Coding Visit Charges Inpatient E&M: 34913 Disch Hosp >30min 01/30/25 0942 Cosigner Signature (if applicable): CC: Dr. Kade Ricketts MD; Dr. Maldonado Raza MD~ Signed [facility]05-29-2025 [facility] Medical Records Department [address] [place] [address] Discharge Summary 01/30/25 0904 MR#: [id number] Acct: [id number] Name: SANDY BHATTI Rep #: [id number] : 1965 60 From: Kade Ricketts MD PCP: Dr. Maldonado Raza MD Status:ADM IN Location: [place] [address] Providers Date of Admission: 01/28/25 Date of Discharge: 01/30/25 Primary Care Physician: Dr. Maldonado Raza MD Consultations 01/28/25 10:37 Consult: Nephrology Routine Consulting Provider: [place] Reason for Consult: ESRD EMERGENT Consult: No MD Notified: Yes Date Notified: 01/28/25 Time Notified: 10:44 Method of Notification: Answering Service Reason For Visit: HYPOXIA Diagnosis Discharge Diagnosis (1) ESRD (end stage renal disease) on dialysis: Status: Chronic Code(s): N18.6 - End stage renal disease; Z99.2 - Dependence on renal dialysis Plan Patient is a 60-year-old lady with history of end-stage renal disease on hemodialysis presented with shortness of breath with associated progressive generalized weakness fever and chills 1.Acute congestive heart failure with preserved ejection fraction ??? Unspecified at this point. Patient has been admitted to monitored bed treatment initiated with fluid restriction, strict input and output, low-sodium diet as well as diuretic therapy with furosemide. Patient is also on hemodialysis consult has been placed for nephrology for dialysis orders to help manage patient fluid status. As part of her management 2D echo was ordered to assess EF ??? 01/29/2025; 2D echo obtained demonstrated estimated ejection fraction of 55- 60 %. Overall normalLV systolic function No significant valvular abnormality noted. No previous echo to compare. Patient remains on diuretic therapy 2. Acute viral syndrome ??? Patient initial evaluation with SARS-CoV-2 influenza and RSV PCR came back negative. Subsequently ordered acute viral respiratory panel to rule out other possible viral etiology. Plan is to continue with symptom management for now. 3. End-stage renal disease on hemodialysis ??? Dialysis days Wednesdays and Fridays. Consult placed to nephrology for dialysis orders. Ordered daily BMP for subsequent eval ??? Creatinine up to 9.08 and potassium was 5.3. 4. Anemia ??? Secondary to chronic disorder monitoring H H and transfuse if patient becomes symptomatic or hemoglobin falls below 7 5. Diabetes mellitus type II Patient is on long-acting insulin as well as scheduled short acting insulin did continue with home regimen. In addition patient was placed on Accu-Cheks a.c. and at bedtime and covered with sliding scale insulin 6. Hypertension ??? Blood pressure control not optimal, resume home medication added hydralazine as needed for systolic blood pressure greater than 160 7. Hypothyroidism ??? Patient is on levothyroxine home dose continued 8. Depression with anxiety ??? Per history patient currently not on any treatment 9. Dyslipidemia ???Patient is on statin therapy, continued at home dose 10. DVT prophylaxis ??? Subcu heparin 11. Acute hypoxia secondary to congestive heart failure ??? Patient was assessed for home oxygen prior to discharge I have reviewed the oxygen testing, and this patient qualifies for the home equipment and portability. The patient is mobile in the home and the community. Medications at Discharge Home Medications aspirin 81 mg tablet,delayed release (Adult Low Dose Aspirin) 81 mg PO DAILY heart health 08/14/18 atorvastatin 40 mg tablet 40 mg PO QHS CHOLESTEROL 08/14/18 vitamin B complex-vitamin C-folic acid 0.8 mg tablet (Kenneth-Petey) 1 tab PO DAILY SUPPLEMENT 01/11/21 levothyroxine 125 mcg tablet 125 mcg PO DAILY THYROID 05/31/23 lisinopril 40 mg tablet 40 mg PO DAILY BLOOD PRESSURE 05/31/23 sucroferric oxyhydroxide 500 mg chewable tablet (Velphoro) 500 mg PO TID PHOSPHATE BINDER 05/31/23 amlodipine 10 mg tablet 10 mg PO DAILY 01/28/25 clonidine HCl 0.2 mg tablet 0.2 mg PO BID 01/28/25 insulin glargine 100 unit/mL (3 mL) subcutaneous pen (Lantus Solostar U-100 Insulin) 48 unit subcut QHS 01/28/25 insulin lispro 100 unit/mL subcutaneous pen 8 unit subcut .COMPLEX 01/28/25 metoprolol tartrate 25 mg tablet 25 mg PO Q12H 01/28/25 sumatriptan succinate 50 mg tablet 50 mg PO BID PRN migraine 01/28/25 furosemide 40 mg tablet (Lasix) 40 mg PO DAILY #90 tabs 01/30/25 Hospital Course Summary of Care Provided Minutes Spent on Discharge: 35 Physical Exam Narrative GENERAL: Patient appears fatigued HEENT: Atraumatic; normocephalic EYES; Anicteric, Normal Conjunctiva NECK; supple, normal thyroid, RESPIRATORY: Diminished to auscultation CARDIOVASCULAR: Regular S1 S2, GI: soft, normoactive bowel sounds, : No Renal angle tenderness; EXTREMITIES: AV fistula right arm MUSCULOSKELETAL: (more content not included)...[facility] 01-29-2025 Progress note Author [place] [facility] Note Date/Time January 29, 2025 1:00p m [facility] Medical Records Department [address] [place] [address] Progress Note - Nephrology 01/29/25 1259 MR#: [id number] Acct: [id number] Name: SANDY BHATTI Rep #:[id number] : 1965 60 From: [place] MD PCP: Dr. Maldonado Raza MD Status:A DM IN Location: [place] [address] Subjective Subjective feels better Objective Data Objective Data Vital Signs: Vital Signs Temp Pulse Resp BP Pulse Ox O2 Del Method O2 Flow Rate 98.1 F 61 15 145/46 H 100 Nasal Cannula 2 01/29/25 11:30 01/29/25 12:32 01/29/25 12:32 01/29/25 12:32 01/29/25 11:30 01/29/25 12:32 01/29/25 12:32 Oxygen Flow Rate (L/min) 2 Oxygen Delivery Method Nasal Cannula Weight: 58.2 kg Body Mass Index (BMI) 21.9 Intake & Output: Intake and Output for Last 24 Hours 01/27/25 01/28/25 01/29/25 23:59 23:59 23:59 Intake Total 600 / 600 720 / 720 Balance 600 / 600 720 / 720 Lab / Micro Data 01/29/25 07:22 01/29/25 05:36 Labs: Laboratory Results - last 24 hr 01/28/25 08:10: Hemoglobin A1c 7.4 H 01/28/25 16:24: POC Glucose 108 H 01/28/25 18:13: POC Glucose 62 L 01/28/25 21:30: POC Glucose 143 H 01/29/25 05:36: WBC Cancelled, Corrected WBC Cancelled, RBC Cancelled, Hgb Cancelled, Hct Cancelled, MCV Cancelled, MCH Cancelled, MCHC Cancelled, RDW Std Deviation Cancelled, RDW Coeff of Alvina Cancelled, Plt Count Cancelled, MPV Cancelled, Immature Gran % (Auto) Cancelled, Neut % (Auto) Cancelled, Lymph % (Auto) Cancelled, [place] % (Auto) Cancelled, Eos % (Auto) Cancelled, Baso % (Auto)Cancelled, Absolute Neuts (auto) Cancelled, Absolute Lymphs (auto) Cancelled, Total Counted Cancelled, Neutrophils % (Manual) Cancelled, Band Neutrophils % Cancelled, Lymphocytes % (Manual) Cancelled, Monocytes % (Manual) Cancelled, Eosinophils % (Manual) Cancelled, Basophils % (Manual) Cancelled, Metamyelocytes% Cancelled, Myelocytes % Cancelled, Promyelocytes % Cancelled, Blast Cells % Cancelled, Plasma Cell % (Manual) Cancelled, Other Cells % Cancelled, Nucleated RBC % Cancelled, Nucleated RBCs/100 WBC Cancelled, Differential Comment Cancelled, Diff Path Review Cancelled, Hypersegmented Neuts Cancelled, Atypical Lymphocytes Cancelled, Reactive Lymphocytes Cancelled, Smudge Cells Cancelled, Toxic Granulation Cancelled, Toxic Vacuolation Cancelled, Dohle Bodies Cancelled, Erin Rods Cancelled, Platelet Estimate Cancelled, Plt Morphology Comment Cancelled, RBC Morphology Cancelled 01/29/25 05:36: RBC Morphology Cancelled, Polychromasia Cancelled, HypochromasiaCancelled, Basophilic Stippling Cancelled, Anisocytosis Cancelled, Microcytosis Cancelled, Macrocytosis Cancelled, Spherocytes Cancelled, Sickle Cells Cancelled, Target Cells Cancelled, Tear Drop Cells Cancelled, Ovalocytes Cancelled, Stomatocytes Cancelled, Peterson-[place] Bodies Cancelled, [place] Cells Cancelled, Bite Cells Cancelled, Crenated Cell Cancelled, Acanthocytes (Spur) Cancelled, Rouleaux Cancelled, Schistocytes Cancelled, Sodium 137, Potassium 5.3H, Chloride 100, Carbon Dioxide 26.8, Anion Gap 10, BUN 32 H, Creatinine 5.62 H,Estim Creat Clear Calc 9.08 L*, Est GFR (MDRD) Non-Af 8 L, BUN/Creatinine Ratio 5.7 L, Glucose 163 H, Calcium 9.0, Phosphorus 2.9, Magnesium 2.7 H 01/29/25 07:22: WBC 5.9, RBC 3.06 L, Hgb 9.2 L, Hct 29.5 L, MCV 96.4 D, MCH 30.1, MCHC 31.2 L D, RDW Std Deviation 47.8 H, RDW Coeff of Alvina 13.7, Plt Count 165, MPV 10.1, Immature Gran % (Auto) 0.700, Neut % (Auto) 61.6, Lymph % (Auto) 27.9, [place] % (Auto) 7.4, Eos % (Auto) 1.0, Baso % (Auto) 1.4 H, Absolute Neuts (auto) 3.6, Absolute Lymphs (auto) 1.63, Nucleated RBC % 0 01/29/25 07:56: POC Glucose 162 H 01/29/25 10:39: POC Glucose 143 H 01/29/25 11:32: POC Glucose 116 H Micro: Microbiology 01/28/25 08:19 Mucosa - Nose SARS-CoV-2, Influenza & RSV (PCR) - Final Radiography Diagnostic Testing: Radiology Impression Echocardiogram 01/28/25 10:37 Interpretation Summary The estimated ejection fraction is 55-60 %. Overall normal LV systolic function No significant valvular abnormality noted. No previous echo to compare. Ordering Physician: Kade Ricketts Performed By: Dave Holly RCS Physical Exam Narrative Alert and oriented x 3, no apparent distress S1, S2, RRR Diminished breath sounds with faint rales. On O2 nasal cannula Abdomen soft, nontender No pitting edema AV fistula right upper arm positive thrill and bruit Assessment & Plan Assessment/Plan (1) ESRD (end stage renal disease) on dialysis: PLAN: ESRD. On hemodialysis Monday, Monday, Monday. Came with shortness of breath. Feels better today. She thinks volume removal helped. Dry weight likely need to be adjusted down. Dialysis again today, we will attempt another 2 to 4 L of volume removal. 01/29/25 1300 <Electronically signed by South Vasques MD> Cosigner Signature (if applicable): CC: ~ Signed [facility] Work Phone: 1(101) 439-211505-28-2025 Progress note Author Kade Ricketts [facility] Note Date/Time January 29, 2025 11:28 am [facility] Medical Records Department [address] [place] [id number] Progress Note - Hospitalist 01/29/25 1126 MR#: [id number] Acct: [id number] Name: SANDY BHATTI Rep #:[id number] : 1965 60 From: Kade Ricketts MD PCP: Dr. Maldonado Raza MD Status:A DM IN Location: [place] [address] Reason for Visit Reason for Visit: Diagnoses Heart failure, unspecified (01/28/25) End stage renal disease (01/28/25) Dependence on renal dialysis (01/28/25) Subjective Subjective Patient is a 60-year-old lady admitted with progressive shortness of breath diagnosed with acute congestive heart failure admitted to monitored bed. Patient is being managed. Patient was started on diuretic therapy with furosemide. Patient has history of end-stage renal disease and creatinine is upto 9.08 this a.m. and potassium 5.3. Objective Data Objective Data Vital Signs: Vital Signs Temp Pulse Resp BP Pulse Ox O2 Del Method O2 Flow Rate 97.9 F 74 16 160/52 H 100 Nasal Cannula 2 01/29/25 09:00 01/29/25 09:00 01/29/25 09:00 01/29/25 09:00 01/29/25 09:00 01/29/25 09:00 01/29/25 09:00 Oxygen Flow Rate (L/min) 2 Oxygen Delivery Method Nasal Cannula Weight: 58.241 kg Body Mass Index (BMI) 22.0 Intake & Output: Intake and Output for Last 24 Hours 01/27/25 01/28/25 01/29/25 23:59 23:59 23:59 Intake Total 600 / 600 360 / 360 Balance 600 / 600 360 / 360 Lab / Micro Data 01/29/25 07:22 01/29/25 05:36 Labs: Laboratory Results - last 24 hr 01/28/25 08:10: Hemoglobin A1c 7.4 H 01/28/25 12:18: POC Glucose 207 H 01/28/25 16:24: POC Glucose 108 H 01/28/25 18:13: POC Glucose 62 L 01/28/25 21:30: POC Glucose 143 H 01/29/25 05:36: WBC Cancelled, Corrected WBC Cancelled, RBC Cancelled, Hgb Cancelled, Hct Cancelled, MCV Cancelled, MCH Cancelled, MCHC Cancelled, RDW Std Deviation Cancelled, RDW Coeff of Alvina Cancelled, Plt Count Cancelled, MPV Cancelled, Immature Gran % (Auto) Cancelled, Neut % (Auto) Cancelled, Lymph % (Auto) Cancelled, [place] % (Auto) Cancelled, Eos % (Auto) Cancelled, Baso % (Auto)Cancelled, Absolute Neuts (auto) Cancelled, Absolute Lymphs (auto) Cancelled, Total Counted Cancelled, Neutrophils % (Manual) Cancelled, Band Neutrophils % Cancelled, Lymphocytes % (Manual) Cancelled, Monocytes % (Manual) Cancelled, Eosinophils % (Manual) Cancelled, Basophils % (Manual) Cancelled, Metamyelocytes% Cancelled, Myelocytes % Cancelled, Promyelocytes % Cancelled, Blast Cells % Cancelled, Plasma Cell % (Manual) Cancelled, Other Cells % Cancelled, Nucleated RBC % Cancelled, Nucleated RBCs/100 WBC Cancelled, Differential Comment Cancelled, Diff Path Review Cancelled, Hypersegmented Neuts Cancelled, Atypical Lymphocytes Cancelled, Reactive Lymphocytes Cancelled, Smudge Cells Cancelled, Toxic Granulation Cancelled, Toxic Vacuolation Cancelled, Dohle Bodies Cancelled, Erin Rods Cancelled, Platelet Estimate Cancelled, Plt Morphology Comment Cancelled, RBC Morphology Cancelled 01/29/25 05:36: RBC Morphology Cancelled, Polychromasia Cancelled, HypochromasiaCancelled, Basophilic Stippling Cancelled, Anisocytosis Cancelled, Microcytosis Cancelled, Macrocytosis Cancelled, Spherocytes Cancelled, Sickle Cells Cancelled, Target Cells Cancelled, Tear Drop Cells Cancelled, Ovalocytes Cancelled, Stomatocytes Cancelled, Peterson-Mayodan Bodies Cancelled, Adan Cells Cancelled, Bite Cells Cancelled, Crenated Cell Cancelled, Acanthocytes (Spur) Cancelled, Rouleaux Cancelled, Schistocytes Cancelled, Sodium 137, Potassium 5.3H, Chloride 100, Carbon Dioxide 26.8, Anion Gap 10, BUN 32 H, Creatinine 5.62 H,Estim Creat Clear Calc 9.08 L*, Est GFR (MDRD) Non-Af 8 L, BUN/Creatinine Ratio 5.7 L, Glucose 163 H, Calcium 9.0, Phosphorus 2.9, Magnesium 2.7 H 01/29/25 07:22: WBC 5.9, RBC 3.06 L, Hgb 9.2 L, Hct 29.5 L, MCV 96.4 D, MCH 30.1, MCHC 31.2 L D, RDW Std Deviation 47.8 H, RDW Coeff of Alvina 13.7, Plt Count 165, MPV 10.1, Immature Gran % (Auto) 0.700, Neut % (Auto) 61.6, Lymph % (Auto) 27.9, [place] % (Auto) 7.4, Eos % (Auto) 1.0, Baso % (Auto) 1.4 H, Absolute Neuts (auto) 3.6, Absolute Lymphs (auto) 1.63, Nucleated RBC % 0 01/29/25 07:56: POC Glucose 162 H 01/29/25 10:39: POC Glucose 143 H Micro: Microbiology 01/28/25 08:19 Mucosa - Nose SARS-CoV-2, Influenza & RSV (PCR) - Final Radiography Diagnostic Testing: Radiology Impression Echocardiogram 01/28/25 10:37 Interpretation Summary The estimated ejection fraction is 55-60 %. Overall normal LV systolic function No significant valvular abnormality noted. No previous echo to compare. Ordering Physician: Kade Ricketts Performed By: Dave Holly RCS Physical Exam Narrative GENERAL: Patient appears fatigued HEENT: Atraumatic; normocephalic EYES; Anicteric, Normal Conjunctiva NECK; supple, normal thyroid, RESPIRATORY: Diminished to auscultation CARDIOVASCULAR: Regular S1 S2, GI: soft, normoactive bowel sounds, : No Renal angle tenderness; EXTREMITIES: AV fistula right arm MUSCULOSKELETAL: no muscle wasting NEURO: Awake; no lateralizing signs. SKIN: No Rash PSYCH; Flat affect Assessment & Plan Assessment/Plan (1) Congestive heart failure (CHF): PLAN: Plan Patient is a 60-year-old lady with history of end-stage renal disease on hemodialysis presented with shortness of breath with associated progressive generalized weakness fever and chills 1.Acute congestive heart failure with preserved ejection fraction ? Unspecified at this point. Patient has been admitted to monitored bed treatment initiated with fluid restriction, strict input and output, low-sodium diet as well as diuretic therapy with furosemide. Patient is also on hemodialysis consult has been placed for nephrology for dialysis orders to help manage patient fluid status. As part of her management 2D echo was ordered to assess EF ? 01/29/2025; 2D echo obtained demonstrated estimated ejection fraction of 55-60 %. Overall normal LV systolic function No significant valvular abnormality noted. No previous echo to compare. Patient remains on diuretic therapy 2. Acute viral syndrome ? Patient initial evaluation with SARS-CoV-2 influenza and RSV PCR came back negative. Subsequently ordered acute viral respiratory panel to rule out other possible viral etiology. Plan is to continue with symptom management for now. 3. End-stage renal disease on hemodialysis ? Dialysis days Wednesdays and Fridays. Consult placed to nephrology for dialysis orders. Ordered daily BMP for subsequent eval ? Creatinine up to 9.08 and potassium was 5.3. 4. Anemia ? Secondary to chronic disorder monitoring H&H and transfuse if patient becomes symptomatic or hemoglobin falls below 7 5. Diabetes mellitus type II Patient is on long-acting insulin as well as scheduled short acting insulin did continue with home regimen. In addition patient was placed on Accu-Cheks a.c. and at bedtime and covered with sliding scale insulin 6. Hypertension ? Blood pressure control not optimal, resume home medication added hydralazine as needed for systolic blood pressure greater than 160 7. Hypothyroidism ? Patient is on levothyroxine home dose continued 8. Depression with anxiety ? Per history patient currently not on any treatment 9. Dyslipidemia ?Patient is on statin therapy, continued at home dose 10. DVT prophylaxis ? Subcu heparin Charges/Coding Visit Charges Inpatient E&M: 15635 Subs Hosp L2 01/29/25 1128 <Electronically signed by Kade Ricketts MD> Cosigner Signature (if applicable): CC: ~ Signed [facility] Work Phone: 1(604) 732-948705-28-2025 Progress note [facility] Medical Records Department [address] [facility] [place] [address] Progress Note - Nephrology 01/29/25 1259 MR#: [id number] Acct: [id number] Name: SANDY BHATTI Rep #:[id number] : 1965 60 From: South galicia MD PCP: Dr. Maldonado Raza MD Status:A DM IN Location: [place] [address] Subjective Subjective feels better Objective Data Objective Data Vital Signs: Vital Signs Temp Pulse Resp BP Pulse Ox O2 Del Method O2 Flow Rate 98.1 F 61 15 145/46 H 100 Nasal Cannula 2 01/29/25 11:30 01/29/25 12:32 01/29/25 12:32 01/29/25 12:32 01/29/25 11:30 01/29/25 12:32 01/29/25 12:32 Oxygen Flow Rate (L/min) 2 Oxygen Delivery Method Nasal Cannula Weight: 58.2 kg Body Mass Index (BMI) 21.9 Intake & Output: Intake and Output for Last 24 Hours 01/27/25 01/28/25 01/29/25 23:59 23:59 23:59 Intake Total 600 / 600 720 / 720 Balance 600 / 600 720 / 720 Lab / Micro Data 01/29/25 07:22 01/29/25 05:36 Labs: Laboratory Results - last 24 hr 01/28/25 08:10: Hemoglobin A1c 7.4 H 01/28/25 16:24: POC Glucose 108 H 01/28/25 18:13: POC Glucose 62 L 01/28/25 21:30: POC Glucose 143 H 01/29/25 05:36: WBC Cancelled, Corrected WBC Cancelled, RBC Cancelled, Hgb Cancelled, Hct Cancelled, MCV Cancelled, MCH Cancelled, MCHC Cancelled, RDW Std Deviation Cancelled, RDW Coeff of Alvina Cancelled, Plt Count Cancelled, MPV Cancelled, Immature Gran % (Auto) Cancelled, Neut % (Auto) Cancelled, Lymph % (Auto) Cancelled, [place] % (Auto) Cancelled, Eos % (Auto) Cancelled, Baso % (Auto)Cancelled, Absolute Neuts (auto) Cancelled, Absolute Lymphs (auto) Cancelled, Total Counted Cancelled, Neutrophils % (Manual) Cancelled, Band Neutrophils % Cancelled, Lymphocytes % (Manual) Cancelled, Monocytes %(Manual) Cancelled, Eosinophils % (Manual) Cancelled, Basophils % (Manual) Cancelled, Metamyelocytes% Cancelled, Myelocytes % Cancelled, Promyelocytes % Cancelled, Blast Cells % Cancelled, Plasma Cell % (Manual) Cancelled, Other Cells % Cancelled, Nucleated RBC % Cancelled, Nucleated RBCs/100 WBC Cancelled, Differential Comment Cancelled, Diff Path Review Cancelled, Hypersegmented Neuts Cancelled, Atypical Lymphocytes Cancelled, Reactive Lymphocytes Cancelled, Smudge Cells Cancelled, Toxic Granulation Cancelled, Toxic Vacuolation Cancelled, Dohle Bodies Cancelled, Erin Rods Cancelled, Platelet Estimate Cancelled, Plt Morphology Comment Cancelled, RBC Morphology Cancelled 01/29/25 05:36: RBC Morphology Cancelled, Polychromasia Cancelled, HypochromasiaCancelled, Basophilic Stippling Cancelled, Anisocytosis Cancelled, Microcytosis Cancelled, Macrocytosis Cancelled, Spherocytes Cancelled, Sickle Cells Cancelled, Target Cells Cancelled, Tear Drop Cells Cancelled, Ovalocytes Cancelled, Stomatocytes Cancelled, Peterson-Mayodan Bodies Cancelled, [place] Cells Cancelled, Bite Cells Cancelled, Crenated Cell Cancelled, Acanthocytes (Spur) Cancelled, Rouleaux Cancelled, Schistocytes Cancelled, Sodium 137, Potassium 5.3H, Chloride 100, Carbon Dioxide 26.8, Anion Gap 10, BUN 32 H, Creatinine 5.62 H,Estim Creat Clear Calc 9.08 L*, Est GFR (MDRD) Non-Af 8 L, BUN/Creatinine Ratio 5.7 L, Glucose 163 H, Calcium 9.0, Phosphorus 2.9, Magnesium 2.7 H 01/29/25 07:22: WBC 5.9, RBC 3.06 L, Hgb 9.2 L, Hct 29.5 L, MCV 96.4 D, MCH 30.1, MCHC 31.2 L D, RDW Std Deviation 47.8 H, RDW Coeff of Alvina 13.7, Plt Count 165, MPV 10.1, Immature Gran % (Auto) 0.700, Neut % (Auto) 61.6, Lymph % (Auto) 27.9, [place] % (Auto) 7.4, Eos % (Auto) 1.0, Baso % (Auto) 1.4 H,Absolute Neuts (auto) 3.6, Absolute Lymphs (auto) 1.63, Nucleated RBC % 0 01/29/25 07:56: POC Glucose 162 H 01/29/25 10:39: POC Glucose 143 H 01/29/25 11:32: POC Glucose 116 H Micro: Microbiology 01/28/25 08:19 Mucosa - Nose SARS-CoV-2, Influenza & RSV (PCR) - Final Radiography Diagnostic Testing: Radiology Impression Echocardiogram 01/28/25 10:37 Interpretation Summary The estimated ejection fraction is 55-60 %. Overall normal LV systolic function No significant valvular abnormality noted. No previous echo to compare. Ordering Physician: Kade Ricketts Performed By: Dave Holly RCS Physical Exam Narrative Alert and oriented x 3, no apparent distress S1, S2, RRR Diminished breath sounds with faint rales. On O2 nasal cannula Abdomen soft, nontender No pitting edema AV fistula right upper arm positive thrill and bruit Assessment & Plan Assessment/Plan (1) ESRD (end stage renal disease) on dialysis: PLAN: ESRD. On hemodialysis Monday, Monday, Monday. Came with shortness of breath. Feels better today. She thinks volume removal helped. Dry weight likely need to be adjusted down. Dialysis again today, we will attempt another 2 to 4 L of volume removal. 01/29/25 1300 Cosigner Signature (if applicable): CC: ~ Signed [facility]-28[facility]2025 Consult note Author Charo Pyle [facility] Note Date/Time January 29, 2025 10:34 am [facility] Medical Records Department [address] [place] [address] Consultation - Nephrology 01/28/25 1419 MR#: [id number] Acct: [id number] Name: SANDY BHATTI Rep #:[id number] : 1965 60 From: Charo marie [employer]KE [employer]-C PCP: Dr. Maldonado Raza MD Status:A DM IN [facility] Assessment & Plan Assessment/Plan (1) ESRD (end stage renal disease) on dialysis: PLAN: Plan We will continue dialysis for the patient, no acute indication for [employer] today, next dialysis tomorrow. Will attempt to remove fluid as patient/blood pressure tolerates. Patient states her EDW is 60 kg. Chest x-ray showed bilateral pleural effusions, may have a lower EDW by time of hospital discharge. 2D echo pending. Will monitor hemoglobin trends, hemoglobin is 9.7. Blood pressure acceptable. Further orders forthcoming as hospitalization evolves, thank you for allowing us to participate in the care of Ms. Bhatti. HPI Consult Data Date of Consult: 01/28/25 HPI Narrative HPI Narrative: SANDY BHATTI, is a 60 F with past medical history significant for ESRD on dialysis at [facility] Monday followed by Dr. Webb who presented to the emergency room with complaints of shortness of breath. Admitted for acute congestive heart failure. Nephrology consulted in view of history of ESRD and for dialysis management. Patient complains of feeling tiredtoday. Patient states she feels she has extra fluid on. [facility] Medical History S/p small bowel obstruction Incarcerated incisional hernia Wears hearing aid in both ears Hypothyroidism Dialysis patient Kidney disease Former smoker Congestive heart failure (CHF) TIA (transient ischemic attack) Problem with dialysis access Hemorrhoids Acid reflux Constipation Anxiety Depression Hypertension Heart disease Diabetes Thyroid disease Home Medications ?Medication ?Instructions ?Recorded ?Last Taken ?Type aspirin 81 mg tablet,delayed 81 mg PO DAILY heart heal th 08/14/18 01/27/25 History release (Adult Low Dose Aspirin) atorvastatin 40 mg tablet 40 mg PO QHS CHOLESTEROL 07/2201/27/25 History vitamin B complex-vitamin C-folic 1 tab PO DAILY SUPPL EMENT 01/11/21 01/27/25 History acid 0.8 mg tablet (Kenneth-Petey) levothyroxine 125 mcg tablet 125 mcg PO DAILY THYROID 05/31/23 01/27/25 History lisinopril 40 mg tablet 40 mg PO DAILY BLOOD PRESSUR E 05/31/23 01/27/25 History sucroferric oxyhydroxide 500 mg 500 mg PO TID PHOSPHAT E BINDER 05/31/23 01/27/25 History chewable tablet (Velphoro) amlodipine 10 mg tablet 10 mg PO DAILY 01/28/2501/03 History clonidine HCl 0.2 mg tablet 0.2 mg PO BID 01/28/25 History insulin glargine 100 unit/mL (3 48 unit subcut QHS 01/27/25 History mL) subcutaneous pen (Lantus Solostar U-100 Insulin) insulin lispro 100 unit/mL 8 unit subcut .COMPLEX 01/0301/27/25 History subcutaneous pen metoprolol tartrate 25 mg tablet 25 mg PO Q12H 5 01/27/25 History sumatriptan succinate 50 mg tablet 50 mg PO BID PRN mi graine 01/28/25 Unknown History Allergy/AdvReac Type Severity Reaction Status Date / Time Penicillins Allergy Severe Anaphylaxis Verified 01/28/25 07:51 chlorhexidine Allergy Mild rash Verified 01/28/25 07:51 codeine Allergy Unknown Unknown Verified 01/28/25 07:51 latex Allergy Unknown Unknown Verified 01/28/25 07:51 Family History Brother Kidney disease Mother Cancer lung cancer Father Colon cancer Surgical History S/P laparotomy with lysis of adhesions Hx of arteriovenostomy for renal dialysis Hx of bilateral breast reduction surgery History of partial hysterectomy History of bowel resection Hx of appendectomy Hx of cholecystectomy Social History Smoking Status: Former smoker alcohol intake: never substance use type: does not use caffeine: Yes what type of physical activity do you participate in: none frequency: does not exercise ROS ROS Narrative As in HPI Physical Exam Narrative Alert and oriented x 3, no apparent distress S1, S2, RRR Diminished breath sounds with faint rales. On O2 nasal cannula Abdomen soft, nontender No pitting edema AV fistula right upper arm positive thrill and bruit Lab / Micro Data 01/28/25 08:10 01/28/25 08:10 Labs: Laboratory Results - last 24 hr 01/28/25 08:10: WBC 7.7, RBC 3.21 L, Hgb 9.7 L, Hct 29.3 L, MCV 91.3, MCH 30.2, MCHC 33.1, RDW Std Deviation 42.9, RDW Coeff of Alvina 13.0, Plt Count 205, MPV 9.6, Immature Gran % (Auto) 0.800, Neut % (Auto) 75.6 H, Lymph % (Auto) 16.7 L, [place] % (Auto) 5.4, Eos % (Auto) 0.5, Baso % (Auto) 1.0, Absolute Neuts (auto) 5.8, Absolute Lymphs (auto) 1.29, Nucleated RBC % 0, Sodium 141, Potassium 4.1, Chloride 99, Carbon Dioxide 29.0, Anion Gap 13, BUN 19, Creatinine 4.48 H, EstimCreat Clear Calc 11.98 L, Est GFR (MDRD) Non-Af 11 L, BUN/Creatinine Ratio 4.3 L, Glucose 227 H, Calcium 9.9 01/28/25 12:18: POC Glucose 207 H Micro: Microbiology 01/28/25 08:19 Mucosa - Nose SARS-CoV-2, Influenza & RSV (PCR) - Final Imaging Radiology Impression Chest X-Ray 01/28/25 08:30 IMPRESSION: Cardiomegaly. Bilateral pleural effusions greater greater on the right side with bibasilar dependent atelectasis and CHF. Reading Location: [place] [address] 01/28/25 1426 <Electronically signed by Charo TREJO> Cosigner Signature (if applicable): 01/29/25 1034 <Electronically signed by South Vasques MD> CC: Dr. Maldonado Raza MD~ Signed [facility] Work Phone: 1(934) 102-266005-28-2025 Progress note [facility] Medical Records Department [address] [place] [address] Progress Note - Hospitalist 01/29/25 1126 MR#: [id number] Acct: [id number] Name: SANDY BHATTI Rep #:[id number] : 1965 60 From: Kade Rikcetts MD PCP: Dr. Maldonado Raza MD Status:A DM IN Location: [place] [address] Reason for Visit Reason for Visit: Diagnoses Heart failure, unspecified (01/28/25) End stage renal disease (01/28/25) Dependence on renal dialysis (01/28/25) Subjective Subjective Patient is a 60-year-old lady admitted with progressive shortness of breath diagnosed with acute congestive heart failure admitted to monitored bed. Patient is being managed. Patient was started on diuretic therapy with furosemide. Patient has history of end-stage renal disease and creatinine is upto 9.08 this a.m. and potassium 5.3. Objective Data Objective Data Vital Signs: Vital Signs Temp Pulse Resp BP Pulse Ox O2 Del Method O2 Flow Rate 97.9 F 74 16 160/52 H 100 Nasal Cannula 2 01/29/25 09:00 01/29/25 09:00 01/29/25 09:00 01/29/25 09:00 01/29/25 09:00 01/29/25 09:00 01/29/25 09:00 Oxygen Flow Rate (L/min) 2 Oxygen Delivery Method Nasal Cannula Weight: 58.241 kg Body Mass Index (BMI) 22.0 Intake & Output: Intake and Output for Last 24 Hours 01/27/25 01/28/25 01/29/25 23:59 23:59 23:59 Intake Total 600 / 600 360 / 360 Balance 600 / 600 360 / 360 Lab / Micro Data 01/29/25 07:22 01/29/25 05:36 Labs: Laboratory Results - last 24 hr 01/28/25 08:10: Hemoglobin A1c 7.4 H 01/28/25 12:18: POC Glucose 207 H 01/28/25 16:24: POC Glucose 108 H 01/28/25 18:13: POC Glucose 62 L 01/28/25 21:30: POC Glucose 143 H 01/29/25 05:36: WBC Cancelled, Corrected WBC Cancelled, RBC Cancelled, Hgb Cancelled, Hct Cancelled, MCV Cancelled, MCH Cancelled, MCHC Cancelled, RDW Std Deviation Cancelled, RDW Coeff of Alvina Cancelled, Plt Count Cancelled, MPV Cancelled, Immature Gran % (Auto) Cancelled, Neut % (Auto) Cancelled, Lymph % (Auto) Cancelled, [place] % (Auto) Cancelled, Eos % (Auto) Cancelled, Baso % (Auto)Cancelled, Absolute Neuts (auto) Cancelled, Absolute Lymphs (auto) Cancelled, Total Counted Cancelled, Neutrophils % (Manual) Cancelled, Band Neutrophils % Cancelled, Lymphocytes % (Manual) Cancelled, Monocytes %(Manual) Cancelled, Eosinophils % (Manual) Cancelled, Basophils % (Manual) Cancelled, Metamyelocytes% Cancelled, Myelocytes % Cancelled, Promyelocytes % Cancelled, Blast Cells % Cancelled, Plasma Cell % (Manual) Cancelled, Other Cells % Cancelled, Nucleated RBC % Cancelled, Nucleated RBCs/100 WBC Cancelled, Differential Comment Cancelled, Diff Path Review Cancelled, Hypersegmented Neuts Cancelled, Atypical Lymphocytes Cancelled, Reactive Lymphocytes Cancelled, Smudge Cells Cancelled, Toxic Granulation Cancelled, Toxic Vacuolation Cancelled, Dohle Bodies Cancelled, Erin Rods Cancelled, Platelet Estimate Cancelled, Plt Morphology Comment Cancelled, RBC Morphology Cancelled 01/29/25 05:36: RBC Morphology Cancelled, Polychromasia Cancelled, HypochromasiaCancelled, Basophilic Stippling Cancelled, Anisocytosis Cancelled, Microcytosis Cancelled, Macrocytosis Cancelled, Spherocytes Cancelled, Sickle Cells Cancelled, Target Cells Cancelled, Tear Drop Cells Cancelled, Ovalocytes Cancelled, Stomatocytes Cancelled, Peterson-Mayodan Bodies Cancelled, [place] Cells Cancelled, Bite Cells Cancelled, Crenated Cell Cancelled, Acanthocytes (Spur) Cancelled, Rouleaux Cancelled, Schistocytes Cancelled, Sodium 137, Potassium 5.3H, Chloride 100, Carbon Dioxide 26.8, Anion Gap 10, BUN 32 H, Creatinine 5.62 H,Estim Creat Clear Calc 9.08 L*, Est GFR (MDRD) Non-Af 8 L, BUN/Creatinine Ratio 5.7 L, Glucose 163 H, Calcium 9.0, Phosphorus 2.9, Magnesium 2.7 H 01/29/25 07:22: WBC 5.9, RBC 3.06 L, Hgb 9.2 L, Hct 29.5 L, MCV 96.4 D, MCH 30.1, MCHC 31.2 L D, RDW Std Deviation 47.8 H, RDW Coeff of Alvina 13.7, Plt Count 165, MPV 10.1, Immature Gran % (Auto) 0.700, Neut % (Auto) 61.6, Lymph % (Auto) 27.9, [place] % (Auto) 7.4, Eos % (Auto) 1.0, Baso % (Auto) 1.4 H,Absolute Neuts (auto) 3.6, Absolute Lymphs (auto) 1.63, Nucleated RBC % 0 01/29/25 07:56: POC Glucose 162 H 01/29/25 10:39: POC Glucose 143 H Micro: Microbiology 01/28/25 08:19 Mucosa - Nose SARS-CoV-2, Influenza & RSV (PCR) - Final Radiography Diagnostic Testing: Radiology Impression Echocardiogram 01/28/25 10:37 Interpretation Summary The estimated ejection fraction is 55-60 %. Overall normal LV systolic function No significant valvular abnormality noted. No previous echo to compare. Ordering Physician: Kade Ricketts Performed By: Dave Holly RCS Physical Exam Narrative GENERAL: Patient appears fatigued HEENT: Atraumatic; normocephalic EYES; Anicteric, Normal Conjunctiva NECK; supple, normal thyroid, RESPIRATORY: Diminished to auscultation CARDIOVASCULAR: Regular S1 S2, GI: soft, normoactive bowel sounds, : No Renal angle tenderness; EXTREMITIES: AV fistula right arm MUSCULOSKELETAL: no muscle wasting NEURO: Awake; no lateralizing signs. SKIN: No Rash PSYCH; Flat affect Assessment & Plan Assessment/Plan (1) Congestive heart failure (CHF): PLAN: Plan Patient is a 60-year-old lady with history of end-stage renal disease on hemodialysis presented with shortness of breath with associated progressive generalized weakness fever and chills 1.Acute congestive heart failure with preserved ejection fraction ? Unspecified at this point. Patient has been admitted to monitored bed treatment initiated with fluid restriction, strict input and output, low-sodium diet as well as diuretic therapy with furosemide. Patient is also on hemodialysis consult has been placed for nephrology for dialysis orders to help manage patient fluid status. As part of her management 2D echo was ordered to assess EF ? 01/29/2025; 2D echo obtained demonstrated estimated ejection fraction of 55-60 %. Overall normal LV systolic function No significant valvular abnormality noted. No previous echo to compare. Patient remains on diuretic therapy 2. Acute viral syndrome ? Patient initial evaluation with SARS-CoV-2 influenza and RSV PCR came back negative. Subsequentlyordered acute viral respiratory panel to rule out other possible viral etiology. Plan is to continue with symptom management for now. 3. End-stage renal disease on hemodialysis ? Dialysis days Wednesdays and Fridays. Consult placed to nephrology for dialysis orders. Ordered daily BMP for subsequent eval ? Creatinine up to 9.08 and potassium was 5.3. 4. Anemia ? Secondary to chronic disorder monitoring H&H and transfuse if patient becomes symptomatic or hemoglobin falls below 7 5. Diabetes mellitus type II Patient is on long-acting insulin as well as scheduled short acting insulin did continue with home regimen. In addition patient was placed on Accu-Cheks a.c. and at bedtime and covered with sliding scale insulin 6. Hypertension ? Blood pressure control not optimal, resume home medication added hydralazine as needed for systolic blood pressure greater than 160 7. Hypothyroidism ? Patient is on levothyroxine home dose continued 8. Depression with anxiety ? Per history patient currently not on any treatment 9. Dyslipidemia ?Patient is on statin therapy, continued at home dose 10. DVT prophylaxis ? Subcu heparin Charges/Coding Visit Charges Inpatient E&M: 90948 Subs Hosp L2 01/29/25 1128 Cosigner Signature (if applicable): CC: ~ Signed [facility]05-28-2025 Consult note [facility] Medical Records Department [address] [place] [address] Consultation - Nephrology 01/28/25 1419 MR#: [id number] Acct: [id number] Name: SANDY BHATTI Rep #:[id number] : 1965 60 From: Charo marie [employer]C PCP: Dr. Maldonado Raza MD Status:A DM IN Location: [place] [id number] Assessment & Plan Assessment/Plan (1) ESRD (end stage renal disease) on dialysis: PLAN: Plan We will continue dialysis for the patient, no acute indication for [employer] today, next dialysis tomorrow. Will attempt to remove fluid as patient/blood pressure tolerates. Patient states her EDW is 60 kg. Chest x-ray showed bilateral pleural effusions, may have a lower EDW by time of hospital discharge. 2D echo pending. Will monitor hemoglobin trends, hemoglobin is 9.7. Blood pressure acceptable. Further orders forthcoming as hospitalization evolves, thank you for allowing us to participate in the care of Ms. Bhatti. HPI Consult Data Date of Consult: 01/28/25 HPI Narrative HPI Narrative: SANDY BHATTI, is a 60 F with past medical history significant for ESRD on dialysis at [facility] Monday followed by Dr. Webb who presented to the emergency room with complaints of shortness of breath. Admitted for acute congestive heart failure. Nephrology consulted in view of history of ESRD and for dialysis management. Patient complains of feeling tiredtoday. Patient states she feels she has extra fluid on. [facility] Medical History S/p small bowel obstruction Incarcerated incisional hernia Wears hearing aid in both ears Hypothyroidism Dialysis patient Kidney disease Former smoker Congestive heart failure (CHF) TIA (transient ischemic attack) Problem with dialysis access Hemorrhoids Acid reflux Constipation Anxiety Depression Hypertension Heart disease Diabetes Thyroid disease Home Medications ?Medication ?Instructions ?Recorded ?Last Taken ?Type aspirin 81 mg tablet,delayed 81 mg PO DAILY heart heal th 08/14/18 01/27/25 History release (Adult Low Dose Aspirin) atorvastatin 40 mg tablet 40 mg PO QHS CHOLESTEROL 07/2201/27/25 History vitamin B complex-vitamin C-folic 1 tab PO DAILY SUPPL EMENT 01/11/21 01/27/25 History acid 0.8 mg tablet (Kenneth-Petey) levothyroxine 125 mcg tablet 125 mcg PO DAILY THYROID 05/31/23 01/27/25 History lisinopril 40 mg tablet 40 mg PO DAILY BLOOD PRESSUR E 05/31/23 01/27/25 History sucroferric oxyhydroxide 500 mg 500 mg PO TID PHOSPHAT E BINDER 05/31/23 01/27/25 History chewable tablet (Velphoro) amlodipine 10 mg tablet 10 mg PO DAILY 01/28/2501/03 History clonidine HCl 0.2 mg tablet 0.2 mg PO BID 01/28/25 History insulin glargine 100 unit/mL (3 48 unit subcut QHS 01/27/25 History mL) subcutaneous pen (Lantus Solostar U-100 Insulin) insulin lispro 100 unit/mL 8 unit subcut .COMPLEX 01/0301/27/25 History subcutaneous pen metoprolol tartrate 25 mg tablet 25 mg PO Q12H 5 01/27/25 History sumatriptan succinate 50 mg tablet 50 mg PO BID PRN mi graine 01/28/25 Unknown History Allergy/AdvReac Type Severity Reaction Status Date / Time Penicillins Allergy Severe Anaphylaxis Verified 01/28/25 07:51 chlorhexidine Allergy Mild rash Verified 01/28/25 07:51 codeine Allergy Unknown Unknown Verified 01/28/25 07:51 latex Allergy Unknown Unknown Verified 01/28/25 07:51 Family History Brother Kidney disease Mother Cancer lung cancer Father Colon cancer Surgical History S/P laparotomy with lysis of adhesions Hx of arteriovenostomy for renal dialysis Hx of bilateral breast reduction surgery History of partial hysterectomy History of bowel resection Hx of appendectomy Hx of cholecystectomy Social History Smoking Status: Former smoker alcohol intake: never substance use type: does not use caffeine: Yes what type of physical activity do you participate in: none frequency: does not exercise ROS ROS Narrative As in HPI Physical Exam Narrative Alert and oriented x 3, no apparent distress S1, S2, RRR Diminished breath sounds with faint rales. On O2 nasal cannula Abdomen soft, nontender No pitting edema AV fistula right upper arm positive thrill and bruit Lab / Micro Data 01/28/25 08:10 01/28/25 08:10 Labs: Laboratory Results - last 24 hr 01/28/25 08:10: WBC 7.7, RBC 3.21 L, Hgb 9.7 L, Hct 29.3 L, MCV 91.3, MCH 30.2, MCHC 33.1, RDW Std Deviation 42.9, RDW Coeff of Alvina 13.0, Plt Count 205, MPV 9.6, Immature Gran % (Auto) 0.800, Neut % (Auto) 75.6 H, Lymph % (Auto) 16.7 L, [place] % (Auto) 5.4, Eos % (Auto) 0.5, Baso % (Auto) 1.0, Absolute Neuts (auto) 5.8, Absolute Lymphs (auto) 1.29, Nucleated RBC % 0, Sodium 141, Potassium 4.1, Chloride 99, Carbon Dioxide 29.0, Anion Gap 13, BUN 19, Creatinine 4.48 H, EstimCreat Clear Calc 11.98 L, Est GFR (MDRD) Non-Af 11 L, BUN/Creatinine Ratio 4.3 L, Glucose 227 H, Calcium 9.9 01/28/25 12:18: POC Glucose 207 H Micro: Microbiology 01/28/25 08:19 Mucosa - Nose SARS-CoV-2, Influenza & RSV (PCR) - Final Imaging Radiology Impression Chest X-Ray 01/28/25 08:30 IMPRESSION: Cardiomegaly. Bilateral pleural effusions greater greater on the right side with bibasilar dependent atelectasis and CHF. [facility] 01/28/25 1426 Cosigner Signature (if applicable): 01/29/25 1034 CC: Dr. Maldonado Raza MD~ Signed [facility]05-27-2025 History and physical note Author Kade Ricketts [facility] Note Date/Time January 28, 2025 10:30 am [facility] Medical Records Department [address] [place] [address] H&P Exam - Hospitalist 01/28/25924 MR#: [id number] Acct: [id number] Name: SANDY BHATTI Rep #:[id number] : 1965 60 From: Kade Ricketts MD PCP: Dr. Maldonado Raza MD Status:A DM IN Location: [facility] [id number] HPI - General General Date of Admission: 01/28/25 Date of Service: 01/28/25 Chief Complaint: Shortness of breath HPI Narrative SANDY BHATTI, is a 60 F with past medical history sniffer end-stage renal diseaseon hemodialysis who presented with shortness of breath and cough for almost a weeks duration. Patient in addition did complain of progressive generalized weakness as well as subjective fever and chills. Patient did develop nausea andvomiting on the morning of her presentation necessitating patient presenting to the emergency department. Workup was unremarkable however patient was found to have bilateral pleural effusion on chest x-ray. Rapid COVID and flu assay came back negative. An assessment of acute congestive heart failure in addition to suspected viral syndrome made admitted to a monitored bed for further management [facility] Medical History S/p small bowel obstruction Incarcerated incisional hernia Wears hearing aid in both ears Hypothyroidism Dialysis patient Kidney disease Former smoker Congestive heart failure (CHF) TIA (transient ischemic attack) Problem with dialysis access Hemorrhoids Acid reflux Constipation Anxiety Depression Hypertension Heart disease Diabetes Thyroid disease Home Medications ?Medication ?Instructions ?Recorded ?Last Taken ?Type aspirin 81 mg tablet,delayed 81 mg PO DAILY heart heal th 08/14/18 01/27/25 History release (Adult Low Dose Aspirin) atorvastatin 40 mg tablet 40 mg PO QHS CHOLESTEROL 07/2201/27/25 History vitamin B complex-vitamin C-folic 1 tab PO DAILY SUPPL EMENT 01/11/21 01/27/25 History acid 0.8 mg tablet (Kenneth-Petey) levothyroxine 125 mcg tablet 125 mcg PO DAILY THYROID 05/31/23 01/27/25 History lisinopril 40 mg tablet 40 mg PO DAILY BLOOD PRESSUR E 05/31/23 01/27/25 History sucroferric oxyhydroxide 500 mg 500 mg PO TID PHOSPHAT E BINDER 05/31/23 01/27/25 History chewable tablet (Velphoro) amlodipine 10 mg tablet 10 mg PO DAILY 01/28/2501/03 History clonidine HCl 0.2 mg tablet 0.2 mg PO BID 01/28/25 History insulin glargine 100 unit/mL (3 48 unit subcut QHS 01/27/25 History mL) subcutaneous pen (Lantus Solostar U-100 Insulin) insulin lispro 100 unit/mL 8 unit subcut .COMPLEX 01/0301/27/25 History subcutaneous pen metoprolol tartrate 25 mg tablet 25 mg PO Q12H 5 01/27/25 History sumatriptan succinate 50 mg tablet 50 mg PO BID PRN mi graine 01/28/25 Unknown History Allergy/AdvReac Type Severity Reaction Status Date / Time Penicillins Allergy Severe Anaphylaxis Verified 01/28/25 07:51 chlorhexidine Allergy Mild rash Verified 01/28/25 07:51 codeine Allergy Unknown Unknown Verified 01/28/25 07:51 latex Allergy Unknown Unknown Verified 01/28/25 07:51 Family History Brother Kidney disease Mother Cancer lung cancer Father Colon cancer Surgical History S/P laparotomy with lysis of adhesions Hx of arteriovenostomy for renal dialysis Hx of bilateral breast reduction surgery History of partial hysterectomy History of bowel resection Hx of appendectomy Hx of cholecystectomy Social History Smoking Status: Former smoker alcohol intake: never substance use type: does not use caffeine: Yes what type of physical activity do you participate in: none frequency: does not exercise ROS ROS Narrative GENERAL: Subjective fever and chills HEENT: Sinus drainage RESPIRATORY: Cough and shortness of breath CARDIAC: denies chest pain, palpitations, orthopnea, PND GASTROINTESTINAL: denies abdominal pain, nausea, vomiting, melena, GENITOURINARY: denies dysuria, urgency, frequency, heamaturia EXTREMITY: denies swelling MUSCULOSKELETAL: denies current joint pain or tenderness NEUROLOGIC: denies focal numbness, weakness, tingling HEMATOLOGIC: denies easy bruising and/or hemorrhage INTEGUMENT: denies rashes PSYCHIATRIC: denies suicidal or homicidal ideation Vital Signs Vital Signs Vital Signs: 01/28/25 07:51 01/28/25 07:58 01/28/25 08:15 Temperature 98.2 F Temperature Source Oral Pulse Rate 86 Respiratory Rate 18 Respiratory Effort Normal Respiratory Depth Normal Respiratory Pattern Normal Blood Pressure 166/4 H Blood Pressure Mean 58 Pulse Ox 95 88 Oxygen Delivery Method Room Air Room Air Room Air Oxygen Flow Rate (L/min) 01/28/25 08:18 01/28/25 08:19 Temperature Temperature Source Pulse Rate 81 Respiratory Rate 18 Respiratory Effort Respiratory Depth Respiratory Pattern Normal Blood Pressure Blood Pressure Mean Pulse Ox 95 Oxygen Delivery Method Nasal Cannula Oxygen Flow Rate (L/min) 2 Weight Weight: 65.317 kg Body Mass Index (BMI) 25.4 Physical Exam Narrative GENERAL: Patient appears fatigued HEENT: Atraumatic; normocephalic EYES; Anicteric, Normal Conjunctiva NECK; supple, normal thyroid, RESPIRATORY: Diminished to auscultation CARDIOVASCULAR: Regular S1 S2, GI: soft, normoactive bowel sounds, : No Renal angle tenderness; EXTREMITIES: AV fistula right arm MUSCULOSKELETAL: no muscle wasting NEURO: Awake; no lateralizing signs. SKIN: No Rash PSYCH; Flat affect Results Lab / Micro Data 01/28/25 08:10 01/28/25 08:10 Labs: Laboratory Results - last 24 hr 01/28/25 08:10: WBC 7.7, RBC 3.21 L, Hgb 9.7 L, Hct 29.3 L, MCV 91.3, MCH 30.2, MCHC 33.1, RDW Std Deviation 42.9, RDW Coeff of Alvina 13.0, Plt Count 205, MPV 9.6, Immature Gran % (Auto) 0.800, Neut % (Auto) 75.6 H, Lymph % (Auto) 16.7 L, [place] % (Auto) 5.4, Eos % (Auto) 0.5, Baso % (Auto) 1.0, Absolute Neuts (auto) 5.8, Absolute Lymphs (auto) 1.29, Nucleated RBC % 0, Sodium 141, Potassium 4.1, Chloride 99, Carbon Dioxide 29.0, Anion Gap 13, BUN 19, Creatinine 4.48 H, EstimCreat Clear Calc 11.98 L, Est GFR (MDRD) Non-Af 11 L, BUN/Creatinine Ratio 4.3 L, Glucose 227 H, Calcium 9.9 Micro: Microbiology 01/28/25 08:19 Mucosa - Nose SARS-CoV-2, Influenza & RSV (PCR) - Final Imaging Radiology Impression Chest X-Ray 01/28/25 08:30 IMPRESSION: Cardiomegaly. Bilateral pleural effusions greater greater on the right side with bibasilar dependent atelectasis and CHF. Reading Location: [facility]- Assessment & Plan Assessment/Plan (1) Congestive heart failure (CHF): PLAN: Plan Patient is a 60-year-old lady with history of end-stage renal disease on hemodialysis presented with shortness of breath with associated progressive generalized weakness fever and chills 1.Acute congestive heart failure ? Unspecified at this point. Patient has been admitted to monitored bed treatment initiated with fluid restriction, strict input and output, low-sodium diet as well as diuretic therapy with furosemide. Patient is also on hemodialysis consult has been placed for nephrology for dialysis orders to help manage patient fluid status. As part of her management 2D echo was ordered to assess EF 2. Acute viral syndrome ? Patient initial evaluation with SARS-CoV-2 influenza and RSV PCR came back negative. Subsequently ordered acute viral respiratory panel to rule out other possible viral etiology. Plan is to continue with symptom management for now. 3. End-stage renal disease on hemodialysis ? Dialysis days Wednesdays and Fridays. Consult placed to nephrology for dialysis orders. Ordered daily BMP for subsequent eval 4. Anemia ? Secondary to chronic disorder monitoring H&H and transfuse if patient becomes symptomatic or hemoglobin falls below 7 5. Diabetes mellitus type II Patient is on long-acting insulin as well as scheduled short acting insulin did continue with home regimen. In addition patient was placed on Accu-Cheks a.c. and at bedtime and covered with sliding scale insulin 6. Hypertension ? Blood pressure control not optimal, resume home medication added hydralazine as needed for systolic blood pressure greater than 160 7. Hypothyroidism ? Patient is on levothyroxine home dose continued 8. Depression with anxiety ? Per history patient currently not on any treatment 9. Dyslipidemia ?Patient is on statin therapy, continued at home dose 10. DVT prophylaxis ? Subcu heparin Advance planning; did discuss with the patient and family (patient ) regarding advanced directives as well as CODE STATUS. Did explain the various scenarios involved ( FULL CODE, DNR CCA, DNR CCA with no intubation, and DNR CC and what each meant) patient opted to remain full code. Order was placed. Timespent on discussion 16 minutes. Charges/Coding Multi Select Codes Visit Charges Visit Charges: 50905 Init Hosp L3 Hospitalists' Procedures Procedures: 82589 Advncd Care Plan 30 Min 01/28/25 1030 <Electronically signed by Kade Ricketts MD> Cosigner Signature (if applicable): CC: Dr. Kade Ricketts MD; Dr. Maldonado Raza MD~ Signed [facility] Work Phone: [phone] 654-885005-27-2025 Discharge summary Author Dave Coronado [facility] Note Date/Time January 28, 2025 9:31a m [facility] Medical Records Department [address] [place] [address] Emergency Department Summary 01/28/25 MR#: [id number] Acct: [id number] Name: SANDY BHATTI Rep #:[id number] : 1965 60 From: Dave christianson DO PCP: Dr. Maldonado Raza MD Status:R EG ER Location: ED HPI History of Present Illness Chief Complaint: Shortness of Breath Narrative Narrative: Chief complaint and HPI: Cold-like symptoms. 60-year-old female with past medical history of DM2, ESRD on HD Monday/Monday/Monday, HTN, thyroid diseasepresents for evaluation of cold-like symptoms. Patient states for the past weekshe has had rhinorrhea, cough, intermittent shortness of breath. States today she had some nausea and vomiting. Denies any abdominal pain, chest pain, fever,diarrhea. Did receive dialysis yesterday. Review of systems: See HPI Medications: As listed on the chart Allergies: As listed on the chart PFSH: Per chart Vital signs: As listed on the chart. Reviewed. Physical exam: Gen: A&O x3, NAD Head: Normocephalic, atraumatic Eyes: No sclera icterus, conjunctiva clear ENT: Moist mucous membranes Neck: Trachea midline, No JVD CV: RRR, no murmurs, no peripheral edema Resp: Lungs CTA BL but diminished in the bases, no w/r/c GI: Abd soft, non-distended, non-tender, no r/r/g Musc: Full ROM, no deformity Skin: Warm, dry Neuro: Alert, oriented, grossly intact, sensation intact Psych: Cooperative, appropriate mood and affect [facility] Medical History S/p small bowel obstruction Incarcerated incisional hernia Wears hearing aid in both ears Hypothyroidism Dialysis patient Kidney disease Former smoker Congestive heart failure (CHF) TIA (transient ischemic attack) Problem with dialysis access Hemorrhoids Acid reflux Constipation Anxiety Depression Hypertension Heart disease Diabetes Thyroid disease Home Medications ?Medication ?Instructions ?Recorded ?Last Taken ?Type aspirin 81 mg tablet,delayed 81 mg PO DAILY heart heal th 08/14/18 01/27/25 History release (Adult Low Dose Aspirin) atorvastatin 40 mg tablet 40 mg PO QHS CHOLESTEROL 07/2201/27/25 History vitamin B complex-vitamin C-folic 1 tab PO DAILY SUPPL EMENT 01/11/21 01/27/25 History acid 0.8 mg tablet (Kenneth-Petey) levothyroxine 125 mcg tablet 125 mcg PO DAILY THYROID 05/31/23 01/27/25 History lisinopril 40 mg tablet 40 mg PO DAILY BLOOD PRESSUR E 05/31/23 01/27/25 History sucroferric oxyhydroxide 500 mg 500 mg PO TID PHOSPHAT E BINDER 05/31/23 01/27/25 History chewable tablet (Velphoro) amlodipine 10 mg tablet 10 mg PO DAILY 01/28/2501/03 History clonidine HCl 0.2 mg tablet 0.2 mg PO BID 01/28/25 History insulin glargine 100 unit/mL (3 48 unit subcut QHS 01/27/25 History mL) subcutaneous pen (Lantus Solostar U-100 Insulin) insulin lispro 100 unit/mL 8 unit subcut .COMPLEX 01/0301/27/25 History subcutaneous pen metoprolol tartrate 25 mg tablet 25 mg PO Q12H 5 01/27/25 History sumatriptan succinate 50 mg tablet 50 mg PO BID PRN mi graine 01/28/25 Unknown History Allergy/AdvReac Type Severity Reaction Status Date / Time Penicillins Allergy Severe Anaphylaxis Verified 01/28/25 07:51 chlorhexidine Allergy Mild rash Verified 01/28/25 07:51 codeine Allergy Unknown Unknown Verified 01/28/25 07:51 latex Allergy Unknown Unknown Verified 01/28/25 07:51 Family History Brother Kidney disease Mother Cancer lung cancer Father Colon cancer Surgical History S/P laparotomy with lysis of adhesions Hx of arteriovenostomy for renal dialysis Hx of bilateral breast reduction surgery History of partial hysterectomy History of bowel resection Hx of appendectomy Hx of cholecystectomy Social History Smoking Status: Former smoker alcohol intake: never substance use type: does not use caffeine: Yes what type of physical activity do you participate in: none frequency: does not exercise EXAM Physical Exam Const Vital Signs: 01/28/25 07:51 01/28/25 07:58 01/28/25 08:15 Temperature 98.2 F Temperature Source Oral Pulse Rate 86 Respiratory Rate 18 Respiratory Effort Normal Respiratory Depth Normal Respiratory Pattern Normal Blood Pressure 166/4 H Blood Pressure Mean 58 Pulse Ox 95 88 Oxygen Delivery Method Room Air Room Air Room Air Oxygen Flow Rate (L/min) 01/28/25 08:18 01/28/25 08:19 Temperature Temperature Source Pulse Rate 81 Respiratory Rate 18 Respiratory Effort Respiratory Depth Respiratory Pattern Normal Blood Pressure Blood Pressure Mean Pulse Ox 95 Oxygen Delivery Method Nasal Cannula Oxygen Flow Rate (L/min) 2 MDM MDM MDM Narrative Medical decision making narrative: 60-year-old female with past medical history of DM2, ESRD on HD Monday/Monday/Monday, HTN, thyroid disease presents for evaluation of cold- like symptoms. Symptoms consist of rhinorrhea, cough, intermittent shortness ofbreath, nausea, vomiting. Patient received dialysis yesterday. On presentation, patient is no acute distress. Vitals are stable other than some mild hypertension. Differential diagnosis includes but not limited to viral illness, COVID-19 infection, influenza, pneumonia, electrolyte abnormality, fluid overload. Zofran ordered for nausea. Given patient is a dialysis patientwe will hold off on any fluids. Patient has moist mucous membranes and no clearsigns of dehydration. Her lungs are clear auscultation bilaterally but diminished in the bases. Given patient is endorsing symptomatic shortness of breath with cough will give DuoNeb for symptom relief. COVID, flu, RSV testing including basic labs and chest x-ray. CBC without leukocytosis. Patient has baseline anemia with a hemoglobin of 9.7. BMP shows baseline renal insufficiency with a creatinine of 4.48. Patient did receive dialysis yesterday. Hyperglycemia of 227. Patient is a diabetic. No anion gap. During breathing treatment patient became hypoxic but saturations quickly improved. However, patient later became hypoxic with oxygen saturation at 87/88 and therefore placed on 2 L nasal cannula with improvement. Chest x-ray was personally interpreted by sd, ED physician. Chest x-ray with cardiomegaly and bilateral pleural effusions. Patient has increased vascular markings. Radiology in agreement. There is no obvious pneumonia on chest x-ray. Patient has no leukocytosis. Suspect her symptoms are likely secondary to viral illnessand pleural effusions/mild CHF exacerbation. COVID, flu, RSV negative. Patientdoes make urine however will hold off on Lasix given her ESRD. Impression: 1. Acute hypoxia requiring nasal cannula 2. Viral syndrome 3. Mild CHF exacerbation with pleural effusion 4. History of ESRD on dialysis Lab Data Labs: Laboratory Results - last 24 hr 01/28/25 08:10 WBC 7.7 RBC 3.21 L Hgb 9.7 L Hct 29.3 L MCV 91.3 MCH 30.2 MCHC 33.1 RDW Std Deviation 42.9 RDW Coeff of Alvina 13.0 Plt Count 205 MPV 9.6 Immature Gran % (Auto) 0.800 Neut % (Auto) 75.6 H Lymph % (Auto) 16.7 L [place] % (Auto) 5.4 Eos % (Auto) 0.5 Baso % (Auto) 1.0 Absolute Neuts (auto) 5.8 Absolute Lymphs (auto) 1.29 Nucleated RBC % 0 Sodium 141 Potassium 4.1 Chloride 99 Carbon Dioxide 29.0 Anion Gap 13 BUN 19 Creatinine 4.48 H Estim Creat Clear Calc 11.98 L Est GFR (MDRD) Non-Af 11 L BUN/Creatinine Ratio 4.3 L Glucose 227 H Calcium 9.9 Radiography Diagnostic Testing: Clinical Impression(s) from Imaging Studies Chest X-Ray 01/28/25 08:30 IMPRESSION: Cardiomegaly. Bilateral pleural effusions greater greater on the right side with bibasilar dependent atelectasis and CHF. Reading Location: [facility] Discharge Plan Triage Chief Complaint: Shortness of Breath ED Provider: Dave Coronado Dx/Rx/DC Orders Prescriptions: No Action aspirin [Adult Low Dose Aspirin] 81 mg tablet,delayed release (DR/EC) 81 mg PO DAILY atorvastatin 40 mg tablet 40 mg PO QHS Kenneth-Petey 0.8 mg Tablet 1 tab PO DAILY lisinopril 40 mg tablet 40 mg PO DAILY Velphoro 500 mg tablet,chewable 500 mg PO TID levothyroxine 125 mcg tablet 125 mcg PO DAILY sumatriptan succinate 50 mg tablet 50 mg PO BID PRN (Reason: migraine) clonidine HCl 0.2 mg tablet 0.2 mg PO BID amlodipine 10 mg tablet 10 mg PO DAILY insulin lispro 100 unit/mL insulin pen 8 unit SUBCUT .COMPLEX Rx Instructions: INJECT 8 UNITS SUBCUTANEOUSLY THREE TIMES DAILY BEFORE MEALS, Add 1 UNIT foreach 50 mg/dl above 150. metoprolol tartrate 25 mg tablet 25 mg PO Q12H insulin glargine [Lantus Solostar U-100 Insulin] 100 unit/mL (3 mL) insulin pen 48 unit subcut QHS Primary Care Provider: Maldonado Raza: Maldonado Raza MD [Primary Care Provider] - Print Language: Romanian What to do if you have Problems For any increased pain, shortness of breath, bleeding, nausea or vomiting, chestpain, or any unexpected problems, contact your Primary Care Provider. Call [facility] ([phone]) or report to the closest Emergency Room. Call 911 if necessary. 01/28/25930 <Electronically signed by Dave Coronado DO> Cosigner Signature (if applicable): CC: Dr. Maldonado Raza MD ~ Signed [facility] Work Phone: 1(992) 623-278805-27-2025 History and physical note [facility] Medical Records Department [address] [place] [id number] H&P Exam - Hospitalist 01/28/25924 MR#: [id number] Acct: [id number] Name: SANDY BHATTI Rep #:[id number] : 1965 60 From: Kade Ricketts MD PCP: Dr. Maldonado Raza MD Status:A DM IN Location: [place] [address] HPI - General General Date of Admission: 01/28/25 Date of Service: 01/28/25 Chief Complaint: Shortness of breath HPI Narrative SANDY BHATTI, is a 60 F with past medical history sniffer end-stage renal diseaseon hemodialysis whopresented with shortness of breath and cough for almost a weeks duration. Patient in addition did complain of progressive generalized weakness as well as subjective fever and chills. Patient did develop nausea andvomiting on the morning of her presentation necessitating patient presenting to the emergency department. Workup was unremarkable however patient was found to have bilateral pleural effusion on chest x-ray. Rapid COVID and flu assay came back negative. An assessment of acute congestiveheart failure in addition to suspected viral syndrome made admitted to a monitored bed for further management [facility] Medical History S/p small bowel obstruction Incarcerated incisional hernia Wears hearing aid in both ears Hypothyroidism Dialysis patient Kidney disease Former smoker Congestive heart failure (CHF) TIA (transient ischemic attack) Problem with dialysis access Hemorrhoids Acid reflux Constipation Anxiety Depression Hypertension Heart disease Diabetes Thyroid disease Home Medications ?Medication ?Instructions ?Recorded ?Last Taken ?Type aspirin 81 mg tablet,delayed 81 mg PO DAILY heart heal th 08/14/18 01/27/25 History release (Adult Low Dose Aspirin) atorvastatin 40 mg tablet 40 mg PO QHS CHOLESTEROL 07/2201/27/25 History vitamin B complex-vitamin C-folic 1 tab PO DAILY SUPPL EMENT 01/11/21 01/27/25 History acid 0.8 mg tablet (Kenneth-Petey) levothyroxine 125 mcg tablet 125 mcg PO DAILY THYROID 05/31/23 01/27/25 History lisinopril 40 mg tablet 40 mg PO DAILY BLOOD PRESSUR E 05/31/23 01/27/25 History sucroferric oxyhydroxide 500 mg 500 mg PO TID PHOSPHAT E BINDER 05/31/23 01/27/25 History chewable tablet (Velphoro) amlodipine 10 mg tablet 10 mg PO DAILY 01/28/2501/03 History clonidine HCl 0.2 mg tablet 0.2 mg PO BID 01/28/25 History insulin glargine 100 unit/mL (3 48 unit subcut QHS 01/27/25 History mL) subcutaneous pen (Lantus Solostar U-100 Insulin) insulin lispro 100 unit/mL 8 unit subcut .COMPLEX 01/0301/27/25 History subcutaneous pen metoprolol tartrate 25 mg tablet 25 mg PO Q12H 5 01/27/25 History sumatriptan succinate 50 mg tablet 50 mg PO BID PRN mi graine 01/28/25 Unknown History Allergy/AdvReac Type Severity Reaction Status Date / Time Penicillins Allergy Severe Anaphylaxis Verified 01/28/25 07:51 chlorhexidine Allergy Mild rash Verified 01/28/25 07:51 codeine Allergy Unknown Unknown Verified 01/28/25 07:51 latex Allergy Unknown Unknown Verified 01/28/25 07:51 Family History Brother Kidney disease Mother Cancer lung cancer Father Colon cancer Surgical History S/P laparotomy with lysis of adhesions Hx of arteriovenostomy for renal dialysis Hx of bilateral breast reduction surgery History of partial hysterectomy History of bowel resection Hx of appendectomy Hx of cholecystectomy Social History Smoking Status: Former smoker alcohol intake: never substance use type: does not use caffeine: Yes what type of physical activity do you participate in: none frequency: does not exercise ROS ROS Narrative GENERAL: Subjective fever and chills HEENT: Sinus drainage RESPIRATORY: Cough and shortness of breath CARDIAC: denies chest pain, palpitations, orthopnea, PND GASTROINTESTINAL: denies abdominal pain, nausea, vomiting, melena, GENITOURINARY: denies dysuria, urgency, frequency, heamaturia EXTREMITY: denies swelling MUSCULOSKELETAL: denies current joint pain or tenderness NEUROLOGIC: denies focal numbness, weakness, tingling HEMATOLOGIC: denies easy bruising and/or hemorrhage INTEGUMENT: denies rashes PSYCHIATRIC: denies suicidal or homicidal ideation Vital Signs Vital Signs Vital Signs: 01/28/25 07:51 01/28/25 07:58 01/28/25 08:15 Temperature 98.2 F Temperature Source Oral Pulse Rate 86 Respiratory Rate 18 Respiratory Effort Normal Respiratory Depth Normal Respiratory Pattern Normal Blood Pressure 166/4 H Blood Pressure Mean 58 Pulse Ox 95 88 Oxygen Delivery Method Room Air Room Air Room Air Oxygen Flow Rate (L/min) 01/28/25 08:18 01/28/25 08:19 Temperature Temperature Source Pulse Rate 81 Respiratory Rate 18 Respiratory Effort Respiratory Depth Respiratory Pattern Normal Blood Pressure Blood Pressure Mean Pulse Ox 95 Oxygen Delivery Method Nasal Cannula Oxygen Flow Rate (L/min) 2 Weight Weight: 65.317 kg Body Mass Index (BMI) 25.4 Physical Exam Narrative GENERAL: Patient appears fatigued HEENT: Atraumatic; normocephalic EYES; Anicteric, Normal Conjunctiva NECK; supple, normal thyroid, RESPIRATORY: Diminished to auscultation CARDIOVASCULAR: Regular S1 S2, GI: soft, normoactive bowel sounds, : No Renal angle tenderness; EXTREMITIES: AV fistula right arm MUSCULOSKELETAL: no muscle wasting NEURO: Awake; no lateralizing signs. SKIN: No Rash PSYCH; Flat affect Results Lab / Micro Data 01/28/25 08:10 01/28/25 08:10 Labs: Laboratory Results - last 24 hr 01/28/25 08:10: WBC 7.7, RBC 3.21 L, Hgb 9.7 L, Hct 29.3 L, MCV 91.3, MCH 30.2, MCHC 33.1, RDW Std Deviation 42.9, RDW Coeff of Alvina 13.0, Plt Count 205, MPV 9.6, Immature Gran % (Auto) 0.800, Neut % (Auto) 75.6 H, Lymph % (Auto) 16.7 L, [place] % (Auto) 5.4, Eos % (Auto) 0.5, Baso % (Auto) 1.0, Absolute Neuts (auto) 5.8, Absolute Lymphs (auto) 1.29, Nucleated RBC % 0, Sodium 141, Potassium 4.1, Chloride 99, Carbon Dioxide 29.0, Anion Gap 13, BUN 19, Creatinine 4.48 H, EstimCreat Clear Calc 11.98 L, Est GFR (MDRD) Non-Af 11 L, BUN/Creatinine Ratio 4.3 L, Glucose 227 H, Calcium 9.9 Micro: Microbiology 01/28/25 08:19 Mucosa - Nose SARS-CoV-2, Influenza & RSV (PCR) - Final Imaging Radiology Impression Chest X-Ray 01/28/25 08:30 IMPRESSION: Cardiomegaly. Bilateral pleural effusions greater greater on the right side with bibasilar dependent atelectasis and CHF. Reading Location: [facility] Assessment & Plan Assessment/Plan (1) Congestive heart failure (CHF): PLAN: Plan Patient is a 60-year-old lady with history of end-stage renal disease on hemodialysis presented with shortness of breath with associated progressive generalized weakness fever and chills 1.Acute congestive heart failure ? Unspecified at this point. Patient has been admitted to monitored bed treatment initiated with fluid restriction, strict input and output, low-sodium diet as well as diuretic therapy with furosemide. Patient is also on hemodialysis consult has been placed for nephrology for dialysis orders to help manage patient fluid status. As part of her management 2D echo was ordered to assess EF 2. Acute viral syndrome ? Patient initial evaluation with SARS-CoV-2 influenza and RSV PCR came back negative. Subsequentlyordered acute viral respiratory panel to rule out other possible viral etiology. Plan is to continue with symptom management for now. 3. End-stage renal disease on hemodialysis ? Dialysis days Wednesdays and Fridays. Consult placed to nephrology for dialysis orders. Ordered daily BMP for subsequent eval 4. Anemia ? Secondary to chronic disorder monitoring H&H and transfuse if patient becomes symptomatic or hemoglobin falls below 7 5. Diabetes mellitus type II Patient is on long-acting insulin as well as scheduled short acting insulin did continue with home regimen. In addition patient was placed on Accu-Cheks a.c. and at bedtime and covered with sliding scale insulin 6. Hypertension ? Blood pressure control not optimal, resume home medication added hydralazine as needed for systolic blood pressure greater than 160 7. Hypothyroidism ? Patient is on levothyroxine home dose continued 8. Depression with anxiety ? Per history patient currently not on any treatment 9. Dyslipidemia ?Patient is on statin therapy, continued at home dose 10. DVT prophylaxis ? Subcu heparin Advance planning; did discuss with the patient and family (patient ) regarding advanced directives as well as CODE STATUS. Did explain the various scenarios involved ( FULL CODE, DNR CCA, DNR CCA with no intubation, and DNR CC and what each meant) patient opted to remain full code. Order wasplaced. Timespent on discussion 16 minutes. Charges/Coding Multi Select Codes Visit Charges Visit Charges: 15301 Init Hosp L3 Hospitalists' Procedures Procedures: 97982 Advncd Care Plan 30 Min 01/28/25 1030 Cosigner Signature (if applicable): CC: Dr. Kade Ricketts MD; Dr. Maldonado Raza MD~ Signed [facility]05-27-2025 Discharge summary [facility] Medical Records Department [address] [place] [address] Emergency Department Summary 01/28/25 MR#: [id number] Acct: [id number] Name: SANDY BHATTI Rep #:[id number] : 1965 60 From: Dave christianson DO PCP: Dr. Maldonado Raza MD Status:R EG ER Location: ED HPI History of Present Illness Chief Complaint: Shortness of Breath Narrative Narrative: Chief complaint and HPI: Cold-like symptoms. 60-year-old female with past medical history of DM2, ESRD on HD Monday/Monday/Monday, HTN, thyroid diseasepresents for evaluation of cold-like symptoms. Patient states for the past weekshe has had rhinorrhea, cough, intermittent shortness of breath. States today she had some nausea and vomiting. Denies any abdominal pain, chest pain, fever,diarrhea.Did receive dialysis yesterday. Review of systems: See HPI Medications: As listed on the chart Allergies: As listed on the chart PFSH: Per chart Vital signs: As listed on the chart. Reviewed. Physical exam: Gen: A&O x3, NAD Head: Normocephalic, atraumatic Eyes: No sclera icterus, conjunctiva clear ENT: Moist mucous membranes Neck: Trachea midline, No JVD CV: RRR, no murmurs, no peripheral edema Resp: Lungs CTA BL but diminished in the bases, no w/r/c GI: Abd soft, non-distended, non-tender, no r/r/g Musc: Full ROM, no deformity Skin: Warm, dry Neuro: Alert, oriented, grossly intact, sensation intact Psych: Cooperative, appropriate mood and affect [facility] Medical History S/p small bowel obstruction Incarcerated incisional hernia Wears hearing aid in both ears Hypothyroidism Dialysis patient Kidney disease Former smoker Congestive heart failure (CHF) TIA (transient ischemic attack) Problem with dialysis access Hemorrhoids Acid reflux Constipation Anxiety Depression Hypertension Heart disease Diabetes Thyroid disease Home Medications ?Medication ?Instructions ?Recorded ?Last Taken ?Type aspirin 81 mg tablet,delayed 81 mg PO DAILY heart heal th 08/14/18 01/27/25 History release (Adult Low Dose Aspirin) atorvastatin 40 mg tablet 40 mg PO QHS CHOLESTEROL 07/2201/27/25 History vitamin B complex-vitamin C-folic 1 tab PO DAILY SUPPL EMENT 01/11/21 01/27/25 History acid 0.8 mg tablet (Kenneth-Petey) levothyroxine 125 mcg tablet 125 mcg PO DAILY THYROID 05/31/23 01/27/25 History lisinopril 40 mg tablet 40 mg PO DAILY BLOOD PRESSUR E 05/31/23 01/27/25 History sucroferric oxyhydroxide 500 mg 500 mg PO TID PHOSPHAT E BINDER 05/31/23 01/27/25 History chewable tablet (Velphoro) amlodipine 10 mg tablet 10 mg PO DAILY 01/28/25 05/2 02/26 History clonidine HCl 0.2 mg tablet 0.2 mg PO BID 01/28/25 History insulin glargine 100 unit/mL (3 48 unit subcut QHS 01/27/25 History mL) subcutaneous pen (Lantus Solostar U-100 Insulin) insulin lispro 100 unit/mL 8 unit subcut .COMPLEX 01/0301/27/25 History subcutaneous pen metoprolol tartrate 25 mg tablet 25 mg PO Q12H 5 01/27/25 History sumatriptan succinate 50 mg tablet 50 mg PO BID PRN mi graine 01/28/25 Unknown History Allergy/AdvReac Type Severity Reaction Status Date / Time Penicillins Allergy Severe Anaphylaxis Verified 01/28/25 07:51 chlorhexidine Allergy Mild rash Verified 01/28/25 07:51 codeine Allergy Unknown Unknown Verified 01/28/25 07:51 latex Allergy Unknown Unknown Verified 01/28/25 07:51 Family History Brother Kidney disease Mother Cancer lung cancer Father Colon cancer Surgical History S/P laparotomy with lysis of adhesions Hx of arteriovenostomy for renal dialysis Hx of bilateral breast reduction surgery History of partial hysterectomy History of bowel resection Hx of appendectomy Hx of cholecystectomy Social History Smoking Status: Former smoker alcohol intake: never substance use type: does not use caffeine: Yes what type of physical activity do you participate in: none frequency: does not exercise EXAM Physical Exam Const Vital Signs: 01/28/25 07:51 01/28/25 07:58 01/28/25 08:15 Temperature 98.2 F Temperature Source Oral Pulse Rate 86 Respiratory Rate 18 Respiratory Effort Normal Respiratory Depth Normal Respiratory Pattern Normal Blood Pressure 166/4 H Blood Pressure Mean 58 Pulse Ox 95 88 Oxygen Delivery Method Room Air Room Air Room Air Oxygen Flow Rate (L/min) 01/28/25 08:18 01/28/25 08:19 Temperature Temperature Source Pulse Rate 81 Respiratory Rate 18 Respiratory Effort Respiratory Depth Respiratory Pattern Normal Blood Pressure Blood Pressure Mean Pulse Ox 95 Oxygen Delivery Method Nasal Cannula Oxygen Flow Rate (L/min) 2 MDM MDM MDM Narrative Medical decision making narrative: 60-year-old female with past medical history of DM2, ESRD on HD Monday/Monday/Monday, HTN, thyroid disease presents for evaluation of cold- like symptoms. Symptoms consist of rhinorrhea, cough, intermittent shortness ofbreath, nausea, vomiting. Patient received dialysis yesterday. On presentation, patient is no acute distress. Vitals are stable other than some mild hypertension. Differential diagnosis includes but not limited to viral illness, COVID-19 infection, influenza, pneumonia, electrolyte abnormality, fluid overload. Zofran ordered for nausea. Given patient is a dialysis patientwe will hold off on any fluids. Patient has moist mucous membranes and no clearsigns of dehydration. Herlungs are clear auscultation bilaterally but diminished in the bases. Given patient is endorsing symptomatic shortness of breath with cough will give DuoNeb for symptom relief. COVID, flu, RSV testing including basic labs and chest x-ray. CBC without leukocytosis. Patient has baseline anemia with ahemoglobin of 9.7. BMP shows baseline renal insufficiency with a creatinine of 4.48. Patient did receive dialysis yesterday. Hyperglycemia of 227. Patient is a diabetic. No anion gap. During breathing treatment patient became hypoxic but saturations quickly improved. However, patient later became hypoxic with oxygen saturation at 87/88 and therefore placed on 2 L nasal cannula with improvement. Chest x-ray was personally interpreted by sd, ED physician. Chest x-ray with cardiomegaly and bilateral pleural effusions. Patient has increased vascular markings. Radiology in agreement. There is no ob vious pneumonia on chest x-ray. Patient has no leukocytosis. Suspect her symptoms are likely secondary to viral illnessand pleural effusions/mild CHF exacerbation. COVID, flu, RSV negative. Patientdoes make urine however will hold off on Lasix given her ESRD. Impression: 1. Acute hypoxia requiring nasal cannula 2. Viral syndrome 3. Mild CHF exacerbation with pleural effusion 4. History of ESRD on dialysis Lab Data Labs: Laboratory Results - last 24 hr 01/28/25 08:10 WBC 7.7 RBC 3.21 L Hgb 9.7 L Hct 29.3 L MCV 91.3 MCH 30.2 MCHC 33.1 RDW Std Deviation 42.9 RDW Coeff of Alvina 13.0 Plt Count 205 MPV 9.6 Immature Gran % (Auto) 0.800 Neut % (Auto) 75.6 H Lymph % (Auto) 16.7 L [place] % (Auto) 5.4 Eos % (Auto) 0.5 Baso % (Auto) 1.0 Absolute Neuts (auto) 5.8 Absolute Lymphs (auto) 1.29 Nucleated RBC % 0 Sodium 141 Potassium 4.1 Chloride 99 Carbon Dioxide 29.0 Anion Gap 13 BUN 19 Creatinine 4.48 H Estim Creat Clear Calc 11.98 L Est GFR (MDRD) Non-Af 11 L BUN/Creatinine Ratio 4.3 L Glucose 227 H Calcium 9.9 Radiography Diagnostic Testing: Clinical Impression(s) from Imaging Studies Chest X-Ray 01/28/25 08:30 IMPRESSION: Cardiomegaly. Bilateral pleural effusions greater greater on the right side with bibasilar dependent atelectasis and CHF. Reading Location: [place] [address] Discharge Plan Triage Chief Complaint: Shortness of Breath ED Provider: Dave Coronado Dx/Rx/DC Orders Prescriptions: No Action aspirin [Adult Low Dose Aspirin] 81 mg tablet,delayed release (DR/EC) 81 mg PO DAILY atorvastatin 40 mg tablet 40 mg PO QHS Kenneth-Petey 0.8 mg Tablet 1 tab PO DAILY lisinopril 40 mg tablet 40 mg PO DAILY Velphoro 500 mg tablet,chewable 500 mg PO TID levothyroxine 125 mcg tablet 125 mcg PO DAILY sumatriptan succinate 50 mg tablet 50 mg PO BID PRN (Reason: migraine) clonidine HCl 0.2 mg tablet 0.2 mg PO BID amlodipine 10 mg tablet 10 mg PO DAILY insulin lispro 100 unit/mL insulin pen 8 unit SUBCUT .COMPLEX Rx Instructions: INJECT 8 UNITS SUBCUTANEOUSLY THREE TIMES DAILY BEFORE MEALS, Add 1 UNIT foreach 50 mg/dl above 150. metoprolol tartrate 25 mg tablet 25 mg PO Q12H insulin glargine [Lantus Solostar U-100 Insulin] 100 unit/mL (3 mL) insulin pen 48 unit subcut QHS Primary Care Provider: Maldonado Raza Referrals: Maldonado Raza MD [Primary Care Provider] - Print Language: Romanian What to do if you have Problems For any increased pain, shortness of breath, bleeding, nausea or vomiting, chestpain, or any unexpected problems, contact your Primary Care Provider. Call [facility] ([phone]) or report tothe closest Emergency Room. Call 911 if necessary. 01/28/25 0931 Cosigner Signature (if applicable): CC: Dr. Maldonado Raza MD ~ Signed [facility]05-27-2025 Radiology Diagnostic study note [facility] Imaging Services [address] [place] [address] Chest PA and Lateral MR#: [id number] Acct: [id number] Name: SANDY BHATTI Rep #: [id number] : 1965 F 60 From: Jayme Gay MD PCP: Dr. Maldonado Raza MD Status: P RE ER Study:Chest PA and Lateral Date of Exam: 01/28/25 Exam# [id number] Ordering Dr: Dave Koroma DO PROCEDURE: CHEST PA AND LATERAL 01/28/2025 REASON FOR EXAM: Cough and shortness of breath. TECHNIQUE: Frontal and lateral views of the chest. COMPARISON: None available. FINDINGS: Hardware: EKG electrodes are seen. Heart: Heart size is moderately enlarged. Mediastinum: The mediastinal contour is unremarkable. Lungs: Small bilateral pleural effusions with bibasilar atelectasis and CHF. Bones: Degenerative changes are identified within the thoracic spine. RAD/Chest PA and Lateral IMPRESSION: Cardiomegaly. Bilateral pleural effusions greater greater on the right side with bibasilar dependent atelectasis and CHF. Reading Location: [facility] CC: Dr. Dave Coronado DO; Dr. Maldonado Raza MD ~ [employer]ilities Repairer: Signed [facility]05-09-2025 Telephone encounter Note* Telephone Encounter - Krys Fountain - 01/10/2025 2:19 PM EDT Patient called in for arrival instructions and was told to arrive at 3:00 pm to J1-2, NPO after midnight, follow med guidelines and bring a ride home. Patient verbalized understanding [facility]05-09-2025 Miscellaneous Notes* Telephone Encounter - Krys Fountain - 01/10/2025 2:19 PM EDT Patient called in for arrival instructions and was told to arrive at 3:00 pm to J1-2, NPO after midnight, follow med guidelines and bring a ride home. Patient verbalized understanding [facility] NoteDate of Procedure 01/02/2025. 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 Imaging Comments: Best possible images obtained and Poor/limited view due to cornea/lens/vitreous opacity in the left eye. OCT Macula Interpretation Right Eye Normal without fluid. Findings include Atrophy; Negative for Intraretinal fluid. Left Eye Normal without fluid. Findings include Negative for Intraretinal fluid. Interval Change Right Eye Initial. Left Eye Initial.[id number] NoteDate of Procedure 01/02/2025. 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 Imaging Comments: Best possible images obtained and Poor/limited view due to cornea/lens/vitreous opacity in the left eye. Interpretation Right Eye Normal pattern.[id number] NoteDate of Procedure 01/02/2025. 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 Imaging Comments: Best possible images obtained and Poor/limited view due to cornea/lens/vitreous opacity in the left eye. Disc Right Eye Normal. Left Eye Pallor. Macula Right Eye Microaneurysms. Left Eye Microaneurysms. Periphery Right Eye Hemorrhage. Left Eye Hemorrhage.[id number] NoteDate of Procedure 01/02/2025. 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 Imaging Comments: Best possible images obtained and Poor/limited view due to cornea/lens/vitreous opacity in the left eye. . Quality Right Eye Excessive artifacts. Left Eye Poor. Interpretation Right Eye Findings include Negative for CNV.[id number] NoteHNO ID: [id number] Author: CHRISTOPHER SNELL MD Service: ? Author Type: Physician Type: [...] Pseudophakia, OS DMEK, OS -S/p CEIOL 02/2023 ([facility]) -Lost vision few days after [...] others. I have seen and examined Sandy Bhatti. I have discussed the case and the management of this patient's care with the Resident/Fellow, if applicable. I also have reviewed and agree with the assessment and plan as stated above and agree with all of its relevant components.[facility]05-01-2025 History of Present illness Narrative* Christopher Snell MD - 01/02/2025 3:21 PM EDT Here for evaluation of possible ALAS Left [...] retina on right eye, left eye poor qualitydue to cornea but also appears atrophic - [...] Pseudophakia, OS DMEK, OS -S/p CEIOL 02/2023 ([facility]) -Lost vision few days after [...] others. I have seen and examined Sandy Bhatti. I have discussed the case and the management of this patient's care with the Resident/Fellow, if applicable. I also have reviewed and agree with the assessment and plan as stated above and agree withall of its relevant components. documented in [facility] encounterMi[facility]05-[facility] Telephone encounter Note * Telephone Encounter - Lakshmi Davies RN - 01/02/2025 8:54 AM EDT Addressed - see other telephone encounter from 01/01/25 for further documentation. Lakshmi Davies RN, BSN 8:54 AM January 02, 2025 [facility] Work Phone: 1(826) 386-305105-01-2025 Miscellaneous Notes* Telephone Encounter - Lakshmi Davies RN - 01/02/2025 8:54 AM EDT Addressed - see other telephone encounter from 01/01/25 for further documentation. Lakshmi Davies RN, BSN 8:54 AM January 02, 2025 * Telephone Encounter - Kenia Johnson RN - 01/01/2025 3:24 PM EDT Called patient in order to reschedule fistulogram. Patient did not answer the phone and unable to leave a voicemail. [facility] Telephone encounter Note * Telephone Encounter - Asuncion Pinedo - 01/01/2025 3:59 PM EDT Spoke with patient spouse and they both stated that 01/14 would be a great date for the surgery. Explained to patient spouse that someone will follow up with them tomorrow morning. [facility]04-30-[facility] Miscellaneous Notes* Telephone Encounter - Asuncion Pinedo - 01/01/2025 3:59 PM EDT Spoke with patient spouse and they both stated that 01/14 would be a great date for the surgery. Explained to patient spouse that someone will follow up with them tomorrow morning. documented [facility]Mi[facility]04[facility]25 Telephone encounter Note * Telephone Encounter - Kenia Johnson RN - 01/01/2025 3:24 PM EDT Called patient in order to reschedule fistulogram. Patient did not answer the phone and unable to leave a voicemail. [facility]04-29-[facility] Telephone encounter Note* Telephone Encounter - Leola Huffman RN - 12/31/2024 12:45 PM EDT Called pt to give arrival time and instructions for fistulogram with Dr. Duque Pt states that she has had a cold for the last week and is still sick Discussed with Dr. Duque, pt should be rescheduled Informed pt and that she will receive a call back to reschedule She verbalized understanding All questions answered Leola Huffman RN [facility]04-29-2025 Miscellaneous Notes* Telephone Encounter - Leola Huffman RN - 12/31/2024 12:45 PM EDT Called pt to give arrival time and instructions for fistulogram with Dr. Duque Pt states that she has had a cold for the last week and is still sick Discussed with Dr. Kalen, pt should be rescheduled Informed pt and that she will receive a call back to reschedule She verbalized understanding All questions answered Leola Huffman RN documented in this encounterMi[facility]04-29-[facility]25 Evaluation note* Diagnosis Onset Date Resolution Status Admit Date Nail avulsion of toe acute Apri l 2024 9:43am [facility] Work Phone: 1(410) 664-754104-29-2025 Evaluation note* Diagnosis Onset Date Resolution Status Admit Date Nail avulsion of toe acute Apri l 2024 9:43am Congestive heart failure (CHF) acute January 28, 2025 9:25am ESRD (end stage renal diseas e) on dialysis chronic January 28, 2025 9 :25am [facility] Work Phone: 1(120) 400-829804-28-2025 Telephone encounter Note* Telephone Encounter - Vita Purdy RN - 12/30/2024 2:51 PM EDT Spoke with patient. Agrees to fistulogram Monday 01/[address] Duque at [facility]. JESSICA Gorman [facility]04-28-2025 Miscellaneous Notes* Telephone Encounter - Vita Purdy RN - 12/30/2024 2:51 PM EDT Spoke with patient. Agrees to fistulogram Monday 01/[address] Duque at [facility]. JESSICA Gorman * Telephone Encounter - Rabia Coles - 12/30/2024 10:21 AM EDT Referral from [facility] for the patient to be scheduled for a fistulagram due to high venous pressure and cannulation issues. Referral has been scanned into the patient's chart. documented in this encounterMi[facility]04-28-2025 Telephone encounter Note * Telephone Encounter - Leonel ElizabethRabia - 12/30/2024 10:21 AM EDT Referral from [facility] for the patient to be scheduled for a fistulagram due to high venous pressure and cannulation issues. Referral has been scanned into the patient's chart. [facility] Work Phone: 1(241) 692-813604-17-2025 Telephone encounter Note* Telephone Encounter - Lakshmi Davies RN - 12/19/2024 4:51 PM EDT Due to multiple appointment requests with varying information and appointment date changed from 01/03to 07/16 (but notes on appt state esrd [...] a fistulagram. Pt gets dialysis M/W/F at [facility], which is closed //Mon/Mon. Informed her that since it is so late in the day and her center is closed, we would have to call her tomorrow. Pt stated that on her dialysis days, she is usually there until about 10 am. Pt stated understanding and agreeable to plan. Lakshmi Davies RN, BSN 5:10 PM December 19, 2024 [facility] Work Phone: 1(625) 497-208804-17-2025 Miscellaneous Notes* Telephone Encounter - Lakshmi Davies RN - 12/19/2024 4:51 PM EDT Due to multiple appointment requests with varying information and appointment date changed from 01/03to 07/16 (but notes on appt state esrd [...] a fistulagram. Pt gets dialysis M/W/F at [facility], which is closed //Mon/Mon. Informed her that since it is so late in the day and her center is closed, we would have to call her tomorrow. Pt stated that on her dialysis days, she is usually there until about 10 am. Pt stated understanding and agreeable to plan. Lakshmi Davies RN, BSN 5:10 PM December 19, 2024 documented in this encounterMi[facility]04-15-2025 Telephone encounter Note * Telephone Encounter - Marek Garcia - 12/17/2024 10:33 AM EDT Reason for call: Mr.s sandy Bhatti called and he would like to schedule an appointment with DR lozada and her scan Contact Name (if not the patient) Home and cell number [phone] Diagnosis Fistula gram Kind Regards Marek Garcia [facility]04-15-2025 Miscellaneous Notes* Telephone Encounter - Marek Garcia - 12/17/2024 10:33 AM EDT Reason for call: Mr.s sandy Bhatti called and he would like to schedule an appointment with DR lozada and her scan Contact Name (if not the patient) Home and cell number [phone] Diagnosis Fistula gram Kind Regards Marek Garcia documented in this encounterMi[facility]04-03-2025 Telephone encounter Note * Telephone Encounter - Maldonado Raza MD - 12/05/2024 12:08 PM EDT The following approved medication requests have been transmitted electronically. Requested Prescriptions Signed Prescriptions Disp Refills insulin glargine (LANTUS SOLOSTAR U-100 INSULIN) 100 unit/mL (3 mL) 15 mL 5 Sig: Inject 48 Units subcutaneously daily at bedtime. Authorizing Provider: MALDONADO RAZA MD [facility]04-03-2025 Miscellaneous Notes* Telephone Encounter - Maldonado Raza MD - 12/05/2024 12:08 PM EDT The following approved medication requests have been transmitted electronically. Requested Prescriptions Signed Prescriptions Disp Refills insulin glargine (LANTUS SOLOSTAR U-100 INSULIN) 100 unit/mL (3 mL) 15 mL 5 Sig: Inject 48 Units subcutaneously daily at bedtime. Authorizing Provider: MALDONADO RAZA MD * Telephone Encounter - Chris Pierce RN - 12/05/2024 11:01 AM EDT [facility]- they quit making levemir. [facility] pcp can order Lantus, Toujeo, or Tresiba in it's place. documented in this encounterMiami [facility] Hospital04-03-2025 Telephone encounter Note * Telephone Encounter - Chris Pierce, RN - 12/05/2024 11:01 AM EDT [facility] phoned to let pcp know- they quit making levemir. [facility] pcp can order Lantus, Toujeo, or Tresiba in it's place. [facility]04-[facility] Instructions* Patient Instructions* Maldonado Raza MD - 12/05/2024 10:17 AM EDT HEPATITIS VACCINE SERIES NOW, AT 1 MONTH, AND AT 6 MONTHS. FASTING BLOOD WORK END OF . documented in this encounterMiami Valley Hospital04-03-2025 NoteHNO ID: [id number] Author: MALDONADO RAZA MD Service: ? Author Type: Physician Type: Progress Notes Filed: 12/05/2024 10:46 Note Text: This note was created using [employer]. Subjective Patient presents with: 5 month follow-up Sandy Bhatti is a 59 year old female. She was doing reasonably well. Her diabetes mellitus was labile. Hypertension was controlled. ESRD was managed with dialysis. Migraines were infrequent. She is scheduled with [facility] for uveitis. Review of Systems Constitutional: [...] mouth twice daily as needed for Constipation. NEPHRO-PETEY 0.8 mg tab Take 1 tablet by [...] is no abdominal tenderness. Musculoskeletal: Right lower le (more content not included)...[facility] 12-05-2024 History of Present illness Narrative* Maldonado Raza MD - 12/05/2024 9:53 AM EDT This note was created using [employer]. Subjective Patient presents with: 5 month follow-up Sandy Bhatti is a 59 year old female. She was doing reasonably well. Her diabetes mellitus was labile. Hypertension was controlled. ESRD was managed with dialysis. Migraines were infrequent. She is scheduled with [facility] for uveitis. Review of Systems Constitutional: [...] mouth twice daily as needed for Constipation. NEPHRO-PETEY 0.8 mg tab Take 1 tablet by [...] Size: Large Adult) Pulse 68 Temp 36.7 C (98.1 F) (Temporal) Wt 61.1 kg (134 lb 11.2 oz) BMI 24.17 kg/m Physical Exam Constitutional: General: She is not [...] complication, with long-term current use of insulin ([facility]) - ICD9: 250.00, V58.67, ICD10: E11.9, Z79.4 [...] ICD10: Z12.4 - CONSULT TO GYNECOLOGY Maldonado Raza MD documented in this encounterMiami [facility] Hospital04-01-2025 History of Present illness Narrative* Sangeeta George RDMS - 12/03/2024 1:30 PM EDT Radiology Service Progress Note PATIENT NAME: Sandy Bhatti DATE OF SERVICE: December 03, 2024 TIME: 2:01 PM PATIENT IDENTITY VERIFICATION COMPLETED USING TWO (2) IDENTIFIERS: Name and Date of confirmedby patient verbally. FALL SCREENING: Has the patient had 2 falls in the last year or 1 fall with injury or currently using an Ambulatory Assistive Device (Walker, Cane, Wheelchair, Crutches, etc.)? No PATIENT GENDER DATA: Assigned female at . status: : No status:NO. PATIENT RELEVANT IMPLANT DATA REVIEWED: Not Applicable PATIENT PRESENTS WITH AN IMPLANTABLE OR ATTACHED TRADE EMBALMER: No RADIOLOGY DEPARTMENT: Ultrasound PERIPHERAL IV DATA: Not applicable SIGNED BY: Sangeeta George RDMS December 03, 2024 2:01 PM documented in this encounterMiami Valley Hospital04-01-2025 NoteHNO ID: [id number] Author: SANGEETA GEORGE RDMS Service: ? Author Type: Clockmaker Type: Progress Notes Filed: 12/03/2024 14:01 Note Text: Radiology Service Progress Note PATIENT NAME: Sandy Bhatti DATE OF SERVICE: December 03, 2024 TIME: [...] PATIENT PRESENTS WITH AN IMPLANTABLE OR ATTACHED TRADE EMBALMER: No RADIOLOGY DEPARTMENT: Ultrasound PERIPHERAL IV DATA: Not applicable SIGNED BY: Sangeeta George RDMS December 03, 2024 2:01 [facility]04-01-2025 History of Present illness Narrative* Alex Callahan, Mammo Tech - 12/03/2024 1:00 PM EDT Radiology Service Progress Note PATIENT NAME: Sandy Bhatti DATE OF SERVICE: December 03, 2024 TIME: 1:01 PM PATIENT IDENTITY VERIFICATION COMPLETED USING TWO (2) IDENTIFIERS: Name and Date of confirmedby patient verbally. FALL SCREENING: Has the patient had 2 falls in the last year or 1 fall with injury or currently using an Ambulatory Assistive Device (Walker, Cane, Wheelchair, Crutches, etc.)? No PATIENT GENDER DATA: Assigned female at . status: : No status:NO. PATIENT RELEVANT IMPLANT DATA REVIEWED: Not Applicable PATIENT PRESENTS WITH AN IMPLANTABLE OR ATTACHED TRADE EMBALMER: No RADIOLOGY DEPARTMENT: Mammography PERIPHERAL IV DATA: Not applicable SIGNED BY: Kika Cooley December 03, 2024 1:01 PM documented in this encounterMiami [facility] Hospital04-01-2025 NoteHNO ID: [id number] Author: ALEX CALLAHAN Mammo Tech Service: ? Author Type: Clockmaker Type: Progress Notes Filed: 12/03/2024 13:01 Note Text: Radiology Service Progress Note PATIENT NAME: Sandy Bhatti DATE OF SERVICE: December 03, 2024 TIME: [...] PATIENT PRESENTS WITH AN IMPLANTABLE OR ATTACHED TRADE EMBALMER: No RADIOLOGY DEPARTMENT: Mammography PERIPHERAL IV DATA: Not applicable SIGNED BY: Kika Cooley December 03, 2024 1:01 [facility]03-25-2025 Telephone encounter Note* Telephone Encounter - Edie Samayoa LPN - 11/26/2024 4:24 PM EDT Patient has been identified by name and date of : Yes Patient phones for refill(s): Requested Prescriptions Pending Prescriptions Disp Refills atorvastatin (LIPITOR) 40 mg tablet 90 tablet 1 Sig: Take 1 tablet by mouth daily at bedtime. Date of last office visit in primary care: 06/13/2024 Date of next office visit in primary care: 12/05/2024 Please advise. Thank you. Edie Samayoa LPN. [facility]03-25-2025 Miscellaneous Notes* Telephone Encounter - Edie Samayoa LPN - 11/26/2024 4:24 PM EDT Patient has been identified by name and date of : Yes Patient phones for refill(s): Requested Prescriptions Pending Prescriptions Disp Refills atorvastatin (LIPITOR) 40 mg tablet 90 tablet 1 Sig: Take 1 tablet by mouth daily at bedtime. Date of last office visit in primary care: 06/13/2024 Date of next office visit in primary care: 12/05/2024 Please advise. Thank you. Edie Samayoa LPN. documented in this encounterMiami Valley Hospital03-24-2025 Telephone encounter Note * Telephone Encounter - Edie Samayoa LPN - 11/25/2024 5:51 PM EDT Patient has been identified by name and date of : Yes Patient phones for refill(s): Requested Prescriptions Pending Prescriptions Disp Refills cloNIDine HCl (CATAPRES) 0.2 mg tablet 60 tablet 5 Sig: Take 1 tablet by mouth two times a day. Date of last office visit in primary care: 06/13/2024 Date of next office visit in primary care: 12/05/2024 Please advise. Thank you. Edie Samayoa LPN. [facility]03-24-2025 Miscellaneous Notes* Telephone Encounter - Edie Samayoa LPN - 11/25/2024 5:51 PM EDT Patient has been identified by name and date of : Yes Patient phones for refill(s): Requested Prescriptions Pending Prescriptions Disp Refills cloNIDine HCl (CATAPRES) 0.2 mg tablet 60 tablet 5 Sig: Take 1 tablet by mouth two times a day. Date of last office visit in primary care: 06/13/2024 Date of next office visit in primary care: 12/05/2024 Please advise. Thank you. Edie Samayoa LPN. documented in this encounterMiami [facility] Hospital12-28-2024 Telephone encounter Note * Telephone Encounter - Artemio Schafer MD - 08/31/2024 12:00 AM EST The following approved medication requests have been transmitted electronically. Requested Prescriptions Signed Prescriptions Disp Refills metoprolol tartrate, short acting, (LOPRESSOR) 25 mg tablet 180 tablet 1 Sig: Take 1 tablet by mouth every 12 hours. Authorizing Provider: ARTEMIO SCHAFER amLODIPine (NORVASC) 10 mg tablet 90 tablet 1 Sig: Take 1 tablet by mouth once daily. Authorizing Provider: ARTEMIO SCHAFER MD [facility]12-28-2024 Miscellaneous Notes* Telephone Encounter - Artemio Schafer MD - 08/31/2024 12:00 AM EST The following approved medication requests have been transmitted electronically. Requested Prescriptions Signed Prescriptions Disp Refills metoprolol tartrate, short acting, (LOPRESSOR) 25 mg tablet 180 tablet 1 Sig: Take 1 tablet by mouth every 12 hours. Authorizing Provider: ARTEMIO SCHAFER amLODIPine (NORVASC) 10 mg tablet 90 tablet 1 Sig: Take 1 tablet by mouth once daily. Authorizing Provider: ARTEMIO SCHAFER MD * Telephone Encounter - Sandy Shrestha LPN - 08/30/2024 2:29 PM EST Pts called and pt ois out of med this was routed incorrectly the first time. documented in this encounterMiami [facility]12-27-2024 Telephone encounter Note * Telephone Encounter - Sandy Shrestha LPN - 08/30/2024 2:29 PM EST Pts called and pt ois out of med this was routed incorrectly the first time. [facility]12-15-2024 NoteHNO ID: [id number] Author: ASUNCION ROSSI RN Service: ? Author Type: Registered Nurse Type: Progress Notes Filed: 08/18/2024 18:43 Note Text: CDM Telephonic Outreach Provider Action/FYI Contacted for: Routine Telephonic Outreach Contact made with patient: No, unable to leave message. Asuncion Rossi RN August 18, 2024 6:43 [facility]12-15-2024 NotePatient Outreach ([facility]) SANDY BHATTI ([id number]) 1965 F Date Time Provider Department 08/18/24 ASUNCION ROSSI AMBLYNN During your visit today, we recorded the following information about you: Asuncion Rossi RN 08/18/2024 6:43 PM Signed CDM Telephonic Outreach Provider Action/FYI [...] twice daily as needed for Constipation. - NEPHRO-PETEY 0.8 mg tab Take 1 tablet by [...] 07/10/2024 Encounter Status:Closed by ASUNCION ROSSI on 08/18/24[facility] 08-15-2024 NoteHNO ID: [id number] Author: ASUNCION ROSSI RN Service: ? Author [...] daily weight at home? 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 Routed to: No Action Needed JEANNETTE Education Provided this Outreach: No Asuncion Rossi RN August 15, 2024 3:46 [place] History of Present illness Narrative* Asuncion Rossi RN - 08/15/2024 3:42 PM EST CDM Telephonic Outreach Provider Action/FYI -chf, ckd, htn, dm Patient states she has a rash on her arms, back and chest that started after dialysis this past Monday. Patient states [facility] nurse sent a message to her kidney [...] daily weight at home? 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 Routed to: No Action Needed JEANNETTE Education Provided this Outreach: No Asuncion Rossi RN August 15, 2024 3:46 PM documented in this encounterMiami Valley Hospital12-12-2024 NotePatient Outreach ([facility]) SANDY BHATTI ([id number]) 1965 F Date Time Provider Department 08/15/24 ASUNCION ROSSI During your visit today, we recorded the following information about you: Asuncion Rossi RN 08/15/2024 3:49 PM Signed CDM Telephonic Outreach Provider Action/FYI -chf, ckd, htn, dm Patient states she has a rash on her arms, back and chest that started after dialysis this past Monday. Patient states [facility] nurse sent a message to her kidney [...] daily weight at home? 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 - NEPHRO-PETEY 0.8 mg tab Take 1 tablet by [...] dialysis (HCC) [N18.6, Z99.2] 05/16/2019 VT (ventricular tachycardi (more content not included)...[facility]11-27-2024 NoteHNO ID: [id number] Author: ASUNCION ROSSI RN Service: ? Author Type: Registered Nurse Type: Progress Notes Filed: 07/31/2024 11:11 Note Text: [facility] Telephonic Outreach Provider Action/FYI Contacted for: Routine Telephonic Outreach Contact made with patient: No, unable to leave message. Asuncion Rossi RN July 31, 2024 11:10 [facility]11-27-2024 History of Present illness Narrative* Asuncion Rossi, RN - 07/31/2024 11:09 AM EST [facility] Telephonic Outreach Provider Action/FYI Contacted for: Routine Telephonic Outreach Contact made with patient: No, unable to leave message. Asuncion Rossi RN July 31, 2024 11:10 AM documented in this encounterMiami [facility] Hospital11-27-2024 NotePatient Outreach ([facility]) SANDY BHATTI ([id number]) 1965 F Date Time Provider Department 07/31/24 ASUNCION ROSSI AMBANDREWG During your visit today, we recorded the [...] twice daily as needed for Constipation. - NEPHRO-PETEY 0.8 mg tab Take 1 tablet by [...] 07/10/2024 Encounter Status:Closed by ASUNCION ROSSI on 07/31/24[facility] 07-30-2024 NoteHNO ID: [id number] Author: ASUNCION ROSSI, RN Service: ? Author Type: Registered Nurse Type: Progress Notes Filed: 07/30/2024 10:14 Note Text: [facility] Telephonic Outreach Provider Action/FYI Contacted for: Routine Telephonic Outreach Contact made with patient: No, unable to leave message. Asuncion Rossi RN July 30, 2024 10:14 [facility]11-26-2024 History of Present illness Narrative* Asuncion Rossi RN - 07/30/2024 10:13 AM EST [facility] Telephonic Outreach Provider Action/FYI Contacted for: Routine Telephonic Outreach Contact made with patient: No, unable to leave message. Asuncion Rossi RN July 30, 2024 10:14 AM documented in this encounterMiami [facility] Hospital11-26-2024 NotePatient Outreach ([facility]) SANDY BHATTI ([id number]) 1965 F Date Time Provider Department 07/30/24 ASUNCION ROSSI AMBG During your visit today, [...] twice daily as needed for Constipation. - NEPHRO-PETEY 0.8 mg tab Take 1 tablet by [...] 07/10/2024 Encounter Status:Closed by ASUNCION ROSSI on 07/30/24[facility] 07-25-2024 History of Present illness Narrative* Kade Jones MD - 07/25/2024 11:30 AM EST Images from the original note were not included. History of Present Illness Sandy Bhatti is a 59 y.o. @GENDER@ who presents for kidney transplant evaluation visit. She is currently on dialysis. The cause of kidney disease is diabetes . She does not have a history of heartattack. She does not have a history of malignancy. Sandy Bhatti's overall functional status is Fair. She reports she is short of breath walking to the clinic. She had a prior bowel obstruction with colostomy which has been taken down. She has had several abdominal wall hernia repairs. She is a former smoker but has quit. Patient Active Problem List Diagnosis Acute mastoiditis Acute respiratory failure Anemia of chronic disease Anxiety Arteriovenous fistula, acquired ([facility]) Coronary arteriosclerosis Calculus of kidney Cataract Colostomy status (Multi) Congestive heart failure Constipation Depressive disorder Diastolic dysfunction Dizziness of unknown etiology Diabetes mellitus (Multi) End stage renal failure on dialysis (Multi) Essential hypertension, benign Gastroesophageal reflux disease Headache Hemorrhoids High blood pressure History of hypothyroidism History of hysterectomy History of major vascular surgery History of reduction mammoplasty History of transient ischemic attack Hyperlipidemia Hyperkalemia Hypertensive chronic kidney disease with stage 5 chronic kidney disease or end stage renal disease Major depressive disorder, recurrent episode with anxious distress ([facility]) Migraine Peripheral arterial disease ([facility]) Prolonged QT interval Proteinuria Secondary hyperparathyroidism of renal origin (Multi) TIA (transient ischemic attack) Organ or tissue replaced by transplant Tubular adenoma of colon Type 2 diabetes mellitus with diabetic chronic kidney disease Urinary tract infection Ventral incisional hernia Preop cardiovascular exam LVH (left ventricular hypertrophy) due to hypertensive disease, without heart failure Kidney transplant candidate Review of Systems Constitutional: Positive for fatigue. Respiratory: Negative for cough and shortness of breath. Cardiovascular: Positive for leg swelling. Gastrointestinal: Positive for nausea. Negative for abdominal pain. Genitourinary: Negative. Neurological: Negative. Hematological: Negative. Objective BP 158/85 Pulse 67 Temp 36.3 C (97.4 F) (Temporal) Wt 66.4 kg (146 lb 6.4 oz) SpO2 93% BMI 26.78 kg/m Physical Exam Vitals reviewed. Constitutional: Appearance: She is normal weight. Cardiovascular: Rate and Rhythm: Normal rate. Pulses: Femoral pulses are 1+ on the right side and 2+ on the left side. Abdominal: General: A surgical scar is present. Bowel sounds are normal. Palpations: Abdomen is soft. Musculoskeletal: General: Normal range of motion. Skin: General: Skin is warm and dry. Capillary Refill: Capillary refill takes less than 2 seconds. Neurological: General: No focal deficit present. Mental Status: She is alert. Psychiatric: Mood and Affect: Mood normal. Lab Review Blood Type: No results found for: ABORH Lab Results Component Value Date CREATININE 6.09 (H) 05/30/2023 K 4.8 05/30/2023 GLUCOSE 180 (H) 05/30/2023 HCT 37.8 05/30/2023 WBC 8.1 05/30/2023 PLT 253 05/30/2023 CALCIUM 10.3 05/30/2023 CT YES (2023) Images personally reviewed demonstrating fair vascular targets. Significant calcification. RCIA has acceptable targets. Cardiographics ECHO: Yes Date: 09/27 CONCLUSIONS: 1. Left ventricular systolic function is normal with a 65% estimated ejection fraction. 2. Spectral Doppler shows an impaired relaxation pattern of left ventricular diastolic filling. 3. There is reduced right ventricular systolic function. 4. Asymmetric septal hypertrophy (maximal thickness of anteroseptal wall 1.8 cm). 5. No evidence of LVOT gradient/systolic anterior motion of the mitral valve. No provocative maneuvers were performed on the study. 6. Findings appear consistent with hypertrophic cardiomyopathy. Consider cardiology consult. STRESS TEST; Yes Date: 04/27 IMPRESSION: 1. No evidence of ischemia or prior infarction. 2. The left ventricle is normal in size. 3. Normal LV wall motion with an LV EF estimated at 60%. CATH: No Assessment/Plan Diagnoses: ESRD requiring renal replacement therapy. Sandy Bhatti is a marginal candidate for kidney transplantation. She needs a 6 minute walk to assess functional status. She has no living donors. She does have 6 years of waiting time and if we can list her quickly she is likely transplantable. Advantages and disadvantages of transplantation were reviewed. Discussed the operative procedure and potential complications, particularly in regard to the need for re-operation. I addressed issues of post-operative recovery and follow- up. Lastly, I discussed the need for immunosuppressive therapy and the risk associated with this treatment. I reviewed the risks of various donor organs including transmission of disease and need for dialysis after transplant. The patient consents to receive offers from high KDPI (Yes), hepatitis B core + (Yes), Hepatitis C+ (Yes) donors. Current center SRTR results were provided to the patient. I answered all of her questions to the best of my ability. She appears to have satisfactory understanding of her medical condition and the transplant process. Kade Jones MD I spent 40 minutes on the professional care of this patient including record review, physical exam,patient counseling, and documentation. documented in this [facility] Work Phone: 1(743) 439-333111-19-2024 History of Present illness Narrative* Murtaza Castellon MD - 07/23/2024 4:00 PM EST Subjective Sandy Bhatti is a 59 y.o. female who presents to the [facility] for preoperative cardiac evaluation for kidney transplant surgery listing. Ms. Bhatti has no active cardiac symptoms of chest pain, dyspnea on exertion, PND, orthopnea, NEISHA, palpitations, syncope, or claudication. On HD for last 6 years. Past Medical History: 1. Severe LVH / hypertensive heart disease 2. Coronary arteriosclerosis 3. Dyslipidemia 4. ESRD on HD 5. H/o TIA 6. Type 2 diabetes Social History: Former smoker (quit 2005) Family History: Mother had CAD; sister has CAD and prior AK. Review of Systems A 14 point review of systems was asked. All questions were negative except for pertinent positives listed in the HPI. Current Outpatient Medications on File Prior to Visit Medication Sig Dispense Refill ciprofloxacin (Ciloxan) 0.3 % ophthalmic solution Administer 1 drop into affected eye(s) 4 times a day. Easy Touch 31 gauge x 5/16 needle Use ONE needle per DOSE FOUR TIMES DAILY insulin lispro (HumaLOG) 100 unit/mL injection Inject 8 Units subcutaneously three times a day before meals. Add 1 unit for each 50 mg/dl above 150 ketorolac (Acular) 0.5 % ophthalmic solution INSTILL ONE DROP IN THE LEFT EYE FOUR TIMES DAILY nitroglycerin (Nitrostat) 0.4 mg SL tablet DISSOLVE ONE TABLET UNDER THE TONGUE EVERY 5 MINUTES NEEDED prednisoLONE acetate (Pred-Forte) 1 % ophthalmic suspension INSTILL ONE DROP IN THE LEFT EYE FOUR TIMES DAILY SUMAtriptan (Imitrex) 50 mg tablet TAKE ONE TABLET BY MOUTH AT ONSET of migraine. MAY REPEAT in TWOHOURS if ineffective. amLODIPine (Norvasc) 5 mg tablet Take 1 tablet (5 mg) by mouth once daily. aspirin 81 mg EC tablet Take 1 tablet (81 mg) by mouth once daily. atorvastatin (Lipitor) 40 mg tablet Take 1 tablet (40 mg) by mouth once daily at bedtime. blood sugar diagnostic strip Test blood sugar(s) 3 times daily. Dx: Type 2 DM - Uncontrolled E11.65Insulin: Yes brimonidine (AlphaGAN P) 0.15 % ophthalmic solution INSTILL 1 DROP INTO LEFT EYE 3 TIMES A DAY cloNIDine (Catapres) 0.3 mg tablet Take 1 tablet (0.3 mg) by mouth once daily at bedtime. docusate sodium (Colace) 100 mg capsule Take 1 capsule (100 mg) by mouth every 12 hours if needed. levothyroxine (Synthroid, Levoxyl) 125 mcg tablet TAKE 1 TABLET BY MOUTH ONCE DAILY. TAKE ON EMPTY STOMACH. FOR THYROID. lisinopril 40 mg tablet Take 1 tablet (40 mg) by mouth once daily. metoprolol tartrate (Lopressor) 25 mg tablet Take 1 tablet (25 mg) by mouth every 12 hours. Nephro-Petey 0.8 mg tablet Take 1 tablet by mouth once daily. Velphoro 500 mg tablet,chewable chewable tablet Chew 1 tablet (500 mg) 3 times a day. No current facility-administered medications on file prior to visit. Objective Physical Exam BP Readings from Last 3 Encounters: 09/18/23 147/63 03/29/22 154/76 Wt Readings from Last 3 Encounters: 03/29/22 67 kg (147 lb 11.2 oz) BMI: Estimated body mass index is 27.01 kg/m as calculated from the following: Height as of 03/29/22: 1.575 m (5' 2). Weight as of 03/29/22: 67 kg (147 lb 11.2 oz). BSA: Estimated body surface area is 1.71 meters squared as calculated from the following: Height as of 03/29/22: 1.575 m (5' 2). Weight as of 03/29/22: 67 kg (147 lb 11.2 oz). General: no acute distress HEENT: EOMI, no scleral icterus. Lungs: Clear to auscultation bilaterally without wheezing, rales, or rhonchi. Cardiovascular: Regular rhythm and rate. Normal S1 and S2. No murmurs, rubs, or gallops are appreciated. JVP normal. Cardiovascular: 3/6 systolic ejection murmur is heard at 2nd right intercostal space. Abdomen: Soft, nontender, nondistended. Bowel sounds present. Extremities: Warm and well perfused with equal 2+ pulses bilaterally. No edema present. Neurologic: Alert and oriented x3. I have personally reviewed the following images and laboratory findings: Last echocardiogram: 09/18/2023 echocardiogram: LV EF 60-65%, mod LVH (LVMI 145 gm/m2), interventricular septum 1.8 cm / posterior wall 1.5 cm, impaired relaxation diastology (E/e' 11), normal LA size (TAMIR 14 ml/m2), normal RV/RA, no AI, no MR, no TR, unable to estimate RVSP (RAP 3 mm Hg). Last cath / stress test: 04/16/2024 SPECT nuclear: LV EF 60%, normal myocardial perfusion without ischemia or scar 07/11/2024 CT calcium score: 340 05/14/2018 [facility] (06/[address] Danita Barros) done at [facility]: non- obstructive coronary plaque with 60% distal LCx, 70% ostial ramus both is small vessels < 2 mm diameter. Most recent EC07/23/2024 ECG: Sinus rhythm, 82 bpm, RBBB, left axis deviation, LVH criteria. Abnormal ECG. Personally reviewed in office. No results found for: CHOL No results found for: HDL No results found for: LDLCALC No results found for: TRIG No components found for: CHOLHDL Assessment/Plan 1. Preoperative evaluation: She has moderate coronary arteriosclerosis (moderate disease in small branch arteries on 05/2018 [facility] cath, moderate range CT calcium score this month) without evidence of ischemia on serial perfusion scans. She has prior severe LVH documented on serial echocardiograms to 2019 at [facility]. 09/2023 echocardiogram at [facility] concerning for asymmetric LVH (interventricular septum 1.8 cm / posterior LV wall 1.5 cm). No prior cardiac MRI to assess for hypertrophic cardiomyopathy vs hypertensive heart disease. Will check CMRI for risk stratification. Time = 45 minutes on direct patient care reviewing current symptoms and discussing treatment options, reviewing prior cardiac care, and coordinating follow up testing. SIGNATURE: Murtaza Castellon M.D. [facility] Senior Attending, Division of Cardiovascular Medicine Co-Director, [facility] Compress Machine Operatorsolid waste collection worker [facility] [employer] [id number] [facility] [address] [place] [address] Appointment: [phone] PATIENT NAME: Sandy Bhatti DATE/TIME: July 23, 2024 4:18 PM documented in this [facility] Work Phone: 1(478) 943-152411-19-2024 Instructions* Patient Instructions* Murtaza Castellon MD - 07/23/2024 4:00 PM EST You were seen at the [facility] for a check up of your heart. Your echocardiogram showed severe thickening of your left ventricle heart muscle bentley. Your ECG isabnormal. I am ordering a MRI of your heart to screening for hypertrophic cardiomyopathy or to confirm that these abnormal findings are only due to your history of high blood pressure. Call [phone] to schedule the MRI test at our [facility] location on 2nd floor [facility] or at [facility]. The [facility] testing location is to the right of the information desk when you walk into [facility] from the [facility] patient parking garage. documented in this [facility] Work Phone: 1(609) 348-660911-07-2024 History of Present illness Narrative* Alex Callahan Mammo Tech - 07/11/2024 9:30 AM EST Radiology Service Progress Note PATIENT NAME: Sandy hBatti DATE OF SERVICE: July 11, 2024 TIME: 9:35 AM PATIENT IDENTITY VERIFICATION COMPLETED USING TWO (2) IDENTIFIERS: Name and Date of confirmedby patient verbally. FALL SCREENING: Has the patient had 2 falls in the last year or 1 fall with injury or currently using an Ambulatory Assistive Device (Walker, Cane, Wheelchair, Crutches, etc.)? No PATIENT GENDER DATA: Female. status: : No status: NO. PATIENT RELEVANT IMPLANT DATA REVIEWED: Not Applicable PATIENT PRESENTS WITH AN IMPLANTABLE OR ATTACHED TRADE EMBALMER: No RADIOLOGY DEPARTMENT: Mammography PERIPHERAL IV DATA: Not applicable SIGNED BY: Kika Cooley July 11, 2024 9:35 AM documented in this encounterKimberly Ville [address]-07-2024 NoteHNO ID: [id number] Author: ALEX CALLAHAN Mammo Tech Service: ? Author Type: Clockmaker Type: Progress Notes Filed: 07/11/2024 09:35 Note Text: Radiology Service Progress Note PATIENT NAME: Sandy Bhatti DATE OF SERVICE: July 11, 2024 TIME: [...] PATIENT PRESENTS WITH AN IMPLANTABLE OR ATTACHED TRADE EMBALMER: No RADIOLOGY DEPARTMENT: Mammography PERIPHERAL IV DATA: Not applicable SIGNED BY: Kika Cooley July 11, 2024 9:35 [facility]11-06-2024 NoteHNO ID: [id number] Author: LUNA THOMAS MD Service: ? Author Type: Physician Type: Progress Notes Filed: 07/10/2024 16:21 Note Text: [facility] DEPARTMENT OF VASCULAR SURGERY OUTPATIENT VISIT DATE July 10, 2024 OUTPATIENT VISIT TYPE ESTABLISHED SERVICE DATE: 07/10/2024 SERVICE TIME: 4:11 PM PRIMARY CARE PHYSICIAN: Maldonado Raza MD HISTORY OF PRESENT ILLNESS: Ms. Bhatti is a 59 year old female who presents today for a vascular surgery follow-up visit today. Arm swelling on the right has resolved. PAST MEDICAL HISTORY Diagnosis Date Acute kidney failure (HCC) 01/14/2018 Anxiety Arterial steal syndrome (HCC) 12/2018 Left AVF Calculus of ureter 06/12/2007 CKD (chronic kidney disease) stage V requiring chronic dialysis ([facility]) 03/01/2018 Dr. Pendleton, nephrology. Congestive heart failure (HCC) Constipation Depression 09/04/2006 Encounter for screening for stenosis of carotid artery 03/27/2023 Less then 50% calcification bilaterally. ESRD on dialysis ([facility]) 05/16/2019 GERD (gastroesophageal reflux disease) Hemorrhoids History [...] (HCC) 06/20/2023 Steal syndrome dialysis vascular access (HCC) 05/17/2019 Thyroid disorder TIA (transient ischemic attack) [...] COLONOSCOPY SCREENING 11/15/2022 COLOSTOMY/SKIN LEVEL CECOSTOMY 2007 [id number], reversed 2007 CREATION OF AVF, PERCUTANEOUS USING [...] Mx PAST SURGICAL HISTORY OF Left 05/16/2019 JOHANNE ELLIOTT (proximal brachial to distal brachial artery bypass with RLE rGSV PAST SURGICAL HISTORY OF Left Cataract removed REDUCTION OF LARGE BREAST 1989 SALPINGECTOMY OR OOPHERECTOMY-ECTOPIC 1986 SLING OPER STRES INCONTINENCE 1998 TOTAL ABDOMINAL HYSTERECT W/WO RMVL TUBE OVARY 1991 Hysterectomy, RUSSELL SOCIAL HISTORY Social History Tobacco [...] at onset of migraine. May repeat in (more content not included)...[facility] 07-10-2024 History of Present illness Narrative* Luna Thomas MD - 07/10/2024 4:11 PM EST Images from the original note were not included. [facility] DEPARTMENT OF VASCULAR SURGERY OUTPATIENT VISIT DATE July 10, 2024 OUTPATIENT VISIT TYPE ESTABLISHED SERVICE DATE: 07/10/2024 SERVICE TIME: 4:11 PM PRIMARY CARE PHYSICIAN: Maldonado Raza MD HISTORY OF PRESENT ILLNESS: Ms. Bhatti is a 59 year old female who presents today for a vascular surgery follow-up visit today. Arm swelling on the right has resolved. PAST MEDICAL HISTORY Diagnosis Date Acute kidney failure (HCC) 01/14/2018 Anxiety Arterial steal syndrome ([facility]) 12/2018 Left AVF Calculus of ureter 06/12/2007 CKD (chronic kidney disease) stage V requiring chronic dialysis ([facility]) 03/01/2018 Dr. Pendleton, nephrology. Congestive heart failure ([facility]) Constipation Depression 09/04/2006 Encounter for screening for stenosis of carotid artery 03/27/2023 Less then 50% calcification bilaterally. ESRD on dialysis ([facility]) 05/16/2019 GERD (gastroesophageal reflux disease) Hemorrhoids History [...] colic 06/12/2007 Secondary hyperparathyroidism of renal origin ([facility]) 06/20/2023 Steal syndrome dialysis vascular access ([facility]) 05/17/2019 Thyroid disorder TIA (transient ischemic attack) [...] COLONOSCOPY SCREENING 11/15/2022 COLOSTOMY/SKIN LEVEL CECOSTOMY 2007 [id number], reversed 2006 CREATION OF AVF, PERCUTANEOUS USING [...] mouth twice daily as needed for Constipation. NEPHRO-PETEY 0.8 mg tab Take 1 tablet by [...] equal, round and reactive. Cardiovascular: Normal S1 & S2, no rubs, murmurs or gallops. No JVD., Pulse regular. Lungs: Normal breath sounds, no wheezes or crackles. Abdomen: Soft, non-tender, no rigidity. Diagnostic tests reviewed for today's visit: IMPRESSION: Ms. Bhatti is a 59 year old female right upper extremity graft.. PLAN and RECOMMENDATIONS: Follow-up in 12 months sooner if symptoms recur SIGNATURE: Luna Thomas MD PATIENT NAME: Sandy Bhatti DATE: July 10, 2024 TIME: 4:11 PM documented in this [facility] NoteHNO ID: [id number] Author: ASUNCION ROSSI RN Service: ? Author [...] daily weight at home? 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 Routed to: No Action Needed JEANNETTE Education Provided this Outreach: No Asuncion Rossi RN July 02, 2024 10:01 [facility]10-29-2024 History of Present illness Narrative* Asuncion Rossi RN - 07/02/2024 9:59 AM EDT [facility] Telephonic Outreach Provider Schuyler/GERMÁN Patient states she has a cold with [...] daily weight at home? 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 Routed to: No Action Needed JEANNETTE Education Provided this Outreach: No Asuncion Rossi RN July 02, 2024 10:01 AM documented in this encounterMiami [facility]10-29-2024 NotePatient Outreach ([facility]) SANDY BHATTI ([id number]) 1965 F Date Time Provider Department 07/02/24 ASUNCION ROSSI [facility] [place] your visit today, we recorded the following information about you: Asuncion Rossi RN 07/02/2024 10:03 AM Signed [facility] Telephonic Outreach Provider Action/ Patient states she has a cold with [...] daily weight at home? 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 - NEPHRO-PETEY 0.8 mg tab Take 1 tablet by [...] of renal origin (*06/20/2023 Abnormal EKG [R94.31] 10 (more content not included)...[facility]10-22-2024 NoteHNO ID: [id number] Author: ASUNCION ROSSI RN Service: ? Author Type: Registered Nurse Type: Progress Notes Filed: 06/25/2024 14:47 Note Text: [facility] Telephonic Outreach Provider Action/FYI Contacted for: Routine Telephonic Outreach Contact made with patient: No, unable to leave message. Asuncion Rossi RN June 25, 2024 2:46 [facility]10-22-2024 History of Present illness Narrative* Asuncion Rossi RN - 06/25/2024 2:45 PM EDT [facility] Telephonic Outreach Provider Action/FYI Contacted for: Routine Telephonic Outreach Contact made with patient: No, unable to leave message. Asuncion Rossi RN June 25, 2024 2:46 PM documented in this encounterMiami [facility]10-22-2024 NotePatient Outreach ([facility]) SANDY BHATTI ([id number]) 1965 F Date Time Provider Department 06/25/24 ASUNCION ROSSI [facility] During your visit today, we recorded the following information about you: Asuncion Rossi RN 06/25/2024 2:47 PM Signed [facility] Telephonic Outreach Provider Action/FYI Contacted for: Routine [...] twice daily as needed for Constipation. - NEPHRO-PETEY 0.8 mg tab Take 1 tablet by [...] 06/13/2024 Encounter Status:Closed by ASUNCION ROSSI on 06/25/24[facility] 06-13-2024 Instructions* Patient Instructions* Maldonado Raza MD - 06/13/2024 3:36 PM EDT Screening schedule The following prevention plan is [...] review all the medicines you take, even kzqn-esm-jlswyac medicines. As you get older, the way medicines work in your body can change. Some medicines, or combinations of medicines, can make you sleepy or dizzy andcan cause you to fall. 3. Have your [...] Risk 60-74 years 1-dose series) Never done documented in this encounterMiami Valley Hospital10-10-2024 NoteHNO ID: [id number] Author: MALDONADO RAZA MD Service: ? Author Type: Physician Type: Progress Notes Filed: 06/13/2024 16:25 Note Text: This note was created using BiolineRxter. Subjective Sandy Bhatti is a 59 year old female. She missed dialysis yesterday due to migraines. She took Imitrex which helped. She had residual lightheadedness today. Her hypertension was difficult and labile. She typically held her blood pressure medications for the morning of dialysis. She had a cough for one month, but was scheduled for a chest xray at [facility] where she is being evaluated for transplant. [...] mouth twice daily as needed for Constipation. NEPHRO-PETEY 0.8 mg tab Take 1 tablet by [...] (HCC) - ICD9: 447.0, ICD10: I77.0 S/p sten (more content not included)...[facility]10-10-2024 History of Present illness Narrative* Maldonado Raza MD - 06/13/2024 3:31 PM EDT This note was created using NoteWriter. Subjective Sandy Bhatti is a 59 year old female. She missed dialysis yesterday due to migraines. She took Imitrex which helped. She had residual lightheadedness today. Her hypertension was difficult and labile. She typically held her blood pressuremedications for the morning of dialysis. She had a cough for one month, but was scheduled for a chest xray at [facility] where she is being evaluated for transplant. [...] (Arteriosclerotic Cardiovascular Disease) Proteinuria Esrd On Dialysis ([facility]) [place] (ventricular tachycardia) Tubular Adenoma of Colon Secondary Hyperparathyroidism of Renal Origin ([facility]) Hypertrophic Cardiomyopathy (Hcc) Congestive Heart Failure ([facility]) History of Echocardiogram History of Stress Test Encounter for Screening for Stenosis of Carotid Artery Arteriovenous Fistula, Acquired ([facility]) Current Outpatient Medications Medication Sig nitroglycerin sublingual [...] mouth twice daily as needed for Constipation. NEPHRO-PETEY 0.8 mg tab Take 1 tablet by [...] medications for this visit. Objective Temp 36.2 C (97.1 F) (Temporal) Ht 159 cm (5' 2.6) Wt 67.6 kg (149 lb 0.5 oz) BMI 26.74 kg/m Orthostatic Vitals: Supine: BP 181/65 Pulse 84 [...] immunization - ICD9: V03.89, ICD10: Z23 - PFIZER-BIONTAccelereach COVID-19 VACCINE AGE 12+ YR (COMIRNATY) 3. [...] ICD9: 588.81, ICD10: N25.81 - Monitored. Maldonado Raza MD * Maldonado Raza MD - 06/13/2024 3:16 PM EDT Images from the original note were not included. Sandy Bhatti is a 59 year old female here [...] Current care team: Patient Care Team: Maldonado Raza MD as PCP - General (Internal Medicine) Dr. Miladys Shelton, [place] stock unloader. Dr. Luna Thomas, vascular surgery. [facility], Gynecology. Byron Day MD as Referring (Ophthalmology) Dr. Dave Pickett, Cardiology. Dr. Héctor Cruz, Ophthalmology. Helen Cuellar, RENATA, CNM, Gynecology. MICHELLEITA for dialysis. Medical/Family history review Reviewed and updated problem list, medical/surgical/family/social history, medications, and allergies. Opioid use review Opioid Medications (last 90 days) No data to display Anxiety/Depression screening Recommendation: no further intervention at this time Cognitive screening Cognitive screening reviewed and No further action needed (score 3-5). Functional Observation Was the patient's Timed Up & Go test unsteady or >= 12 seconds? No Advance Care Planning Patient did not wish or was not able to name a surrogate decision maker or provide an advance care plan Measurements Temp 36.2 C (97.1 F) (Temporal) Ht 159 cm (5' 2.6) Wt 67.6 kg (149 lb 0.5 oz) BMI 26.74 kg/m Vision Screening: Follows with optometry/ophthalmology Assessment/Plan Medicare annual wellness visit, subsequent (Z00.00) - Counseled on healthy diet and regular exercise - Fall avoidance information provided - Personalized prevention plan provided - Vaccine recommendations reviewed. documented in this encounterMiami [facility]10-10-2024 NoteHNO ID: [id number] Author: MALDONADO RAZA MD Service: ? Author Type: Physician Type: Progress Notes Filed: 06/13/2024 16:25 Note Text: Sandy Bhatti is a 59 year old female here [...] Current care team: Patient Care Team: Maldonado Raza MD as PCP - General (Internal Medicine) Dr. Miladys Shelton, [place] stock unloader. Dr. Luna Thomas, vascular surgery. [facility], Gynecology. Byron Day MD as Referring (Ophthalmology) Dr. Dave Pickett, Cardiology. Dr. Héctor Cruz, Ophthalmology. Helen Cuellar APRN, CNM, Gynecology. DAVITA for dialysis. Medical/Family history review Reviewed and [...] Personalized prevention plan provided - Vaccine recommendations reviewed.[facility]10-08-2024 NoteHNO ID: [id number] Author: MANDIE YOUNGER APRN.HIGH FREQUENCY MILL OPERATOR Service: ? Author Type: Nurse Practitioner Type: Progress Notes Filed: 06/11/2024 07:45 Note Text: [facility] Department of Cardiology Referring Provider: No ref. provider found Date: June 11, 2024 Chief Complaint: Congestive heart failure, unspecified HF chronicity, unspecified heart failure type (HCC) Subjective: Sandy Bhatti is a 59 year old female who presents as an established patient for coronary artery disease and heart failure assessment management. History of arteriosclerotic vascular disease and hypertension. Patient is a dialysis patient with [facility], [facility]. Patient has a right upper arm fistula. ALLERGIES Allergen Reactions Codeine GI Upset Latex Hives 2005 had reaction after surgery Penicillins Swelling Chlorhexidine Rash PAST MEDICAL HISTORY: PAST MEDICAL HISTORY Diagnosis Date Acute kidney failure (HCC) 01/14/2018 Anxiety Arterial steal syndrome ([facility]) 12/2018 Left AVF Calculus of ureter 06/12/2007 CKD (chronic kidney disease) stage V requiring chronic dialysis ([facility]) 03/01/2018 Dr. Pendleton, nephrology. Congestive heart failure (HCC) Constipation Depression 09/04/2006 Encounter for screening for stenosis of carotid artery 03/27/2023 Less then 50% calcification bilaterally. ESRD on dialysis ([facility]) 05/16/2019 GERD (gastroesophageal reflux disease) Hemorrhoids History [...] (HCC) 06/20/2023 Steal syndrome dialysis vascular access ([facility]) 05/17/2019 Thyroid disorder TIA (transient ischemic attack) 06/2019 Tubular adenoma of colon 11/15/2022 Type II or unspecified type diabetes mellitus without mention of complication, not stated as uncontrolled 09/04/1985 Ventral hernia with bowel obstruction 06/01/2023 PAST SURGICAL HISTORY Procedure Laterality Date APPENDECTOMY 1993 AV ANASTOMIES OPEN;BY BASILIC VEIN WINN Right 04/20/2020 transpose basilic vein fistula, R arm AV FISTULA OR GRAFT VENOUS Left 10/04/2017 AV FISTULA OR GRAFT VENOUS Left 09/20/2018 redo, failure to mature AV FISTULA OR GRAFT VENOUS Right 04/21/2021 BOWEL RESECTION HX 2006 CHOLECYSTECTOMY 1985 Cholecystectomy COLONOSCOPY SCREENING 11/15/2022 COLOSTOMY/SKIN LEVEL CECOSTOMY 2007 [id number], reversed 2007 CREATION OF AVF, PERCUTANEOUS USING [...] lung cancer Coronary Artery Disease Brother dec. [place] 56 y.o. No Known Problems Maternal Grandmother [...] day before meals. Add 1 unit for (more content not included)...[id number] History of Present illness Narrative* Mandie Younger, HAZARDOUS MATERIALS HANDLER.HIGH FREQUENCY MILL OPERATOR - 06/11/2024 6:51 AM EDT Images from the original note were not included. [facility] Department of Cardiology Referring Provider: No ref. provider found Date: June 11, 2024 Chief Complaint: Congestive heart failure, unspecified HF chronicity, unspecified heart failure type (HCC) Subjective: Sandy Bhatti is a 59 year old female who presents as an established patient for coronary artery disease and heart failure assessment management. History of arteriosclerotic vascular disease and hypertension. Patient is a dialysis patient with [facility], [facility]. Patient has a right upper arm fistula. ALLERGIES Allergen Reactions Codeine GI Upset Latex Hives 2005 had reaction after surgery Penicillins Swelling Chlorhexidine Rash PAST MEDICAL HISTORY: PAST MEDICAL HISTORY Diagnosis Date Acute kidney failure (HCC) 01/14/2018 Anxiety Arterial steal syndrome (HCC) 12/2018 Left AVF Calculus of ureter 06/12/2007 CKD (chronic kidney disease) stage V requiring chronic dialysis ([facility]) 03/01/2018 Dr. Pendleton, nephrology. Congestive heart failure (HCC) Constipation Depression 09/04/2006 Encounter for screening for stenosis of carotid artery 03/27/2023 Less then 50% calcification bilaterally. ESRD on dialysis ([facility]) 05/16/2019 GERD (gastroesophageal reflux disease) Hemorrhoids History [...] (HCC) 06/20/2023 Steal syndrome dialysis vascular access (HCC) 05/17/2019 Thyroid disorder TIA (transient ischemic attack) [...] COLONOSCOPY SCREENING 11/15/2022 COLOSTOMY/SKIN LEVEL CECOSTOMY 2007 [id number], reversed 2007 CREATION OF AVF, PERCUTANEOUS USING [...] lung cancer Coronary Artery Disease Brother dec. [place] 57 y.o. No Known Problems Maternal Grandmother [...] the tongue every 5 minutes as needed. NEPHRO-PETEY 0.8 mg tab Take 1 tablet by [...] lb 4 oz) SpO2 97% BMI 26.44 kg/m PHYSICAL EXAMINATION: BP 154/50 (BP Site: Left Arm, BP Position: Sitting, BP Cuff Size: Large Adult) Pulse 78 Ht 160 cm (5' 3) Wt 67.7 kg (149 lb 4 oz) SpO2 97% BMI 26.44 kg/m Last 3 Encounter BP Readings: Date: BP: [...] your convenience and easy access. please note theinterpretation on the EKG image is computer-generated and [...] a dialysis patient with dialysis treatment every Vsncet-Ficvkdyck-Fvtkzu -Currently taking lisinopril 40 mg daily 2. [...] and benefit of weight loss. BMI 26.44 kg/(m^2) 4. Mixed hyperlipidemia - ICD9: 272.2, ICD10: E78.2 -Currently taking atorvastatin - Continue current medications - Counseled on healthy diet and regular exercise -Statin is followed and managed through [facility] 5. History of echocardiogram - ICD9: [...] Z87.891 -Patient was met in 2005 Mandie Younger APRN.CNP Follow up in: 6 months heart failure Greater than 50% of this > 20 minute visit was spent face to face discussing current diagnosis and treatment plan consisting of above outlined plan. Follow- up as documented above. I have discussed the [...] the results with the patient. I, Mandie Younger CNP have reviewed and agree with the information in the medical record transcribed by Mandie Younger APRN.CNP. Mandie Younger APRN.CNP This patient note was partially generated from using the [email or web address] voice recognition system. There maybe some incorrect words, spelling, and punctuation that were not noted in checking the note prior to saving documented in [facility] encounterMi[facility] Telephone encounter Note * Telephone Encounter - Celsa Chung - 06/05/2024 10:38 AM EDT I spoke with her and she will come in on 08/08 at 2:30. Appt sent to be scheduled. [facility]10-[facility] Miscellaneous Notes* Telephone Encounter - Celsa Chung - 06/05/2024 10:38 AM EDT I spoke with her and she will come in on 08/08 at 2:30. Appt sent to be scheduled. * Telephone Encounter - Krys Lakhani RN - 06/05/2024 10:19 AM EDT 08/08 at 2:30. Alissa * Telephone Encounter - Celsa Chung - 06/05/2024 10:03 AM EDT She said she has other appts that day but that are good for her since she has dialysis on-W-. Is there another she can be seen instead? * Telephone Encounter - Krys Lakhani, JESSICA - 06/05/2024 6:31 AM EDT We can see them 07/11 at 9 am. Alissa Nevarez * Telephone Encounter - Celsa Chung - 06/04/2024 11:[address] Byron Day is referring this pt to Dr. 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 They did specifically say Dr. Snell unless you feel this patient can be seen by any of our uveitis specialists in which case I can have our appt office help set the patient up. Please advise. They said they will also be sending notes over for review. documented in this encounterMiami [facility] Hospital10-02-2024 Telephone encounter Note * Telephone Encounter - Krys Lakhani RN - 06/05/2024 10:19 AM EDT 08/08 at 2:30. Alissa [facility]10-02-[facility] Telephone encounter Note* Telephone Encounter - Celsa Chung - 06/05/2024 10:03 AM EDT She said she has other appts that day but that are good for her since she has dialysis . Is there another she can be seen instead? [facility] Telephone encounter Note* Telephone Encounter - Krys Lakhani RN - 06/05/2024 6:31 AM EDT We can see them 07/11 at 9 am. Alissa Nevarez [facility]10-01-[facility] Telephone encounter Note* Telephone Encounter - Celsa Chung - 06/04/2024 11:[address] Byron Day is referring this pt to Dr. 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 They did specifically say Dr. Snell unless you feel this patient can be seen by any of our uveitis specialists in which case I can have our appt office help set the patient up. Please advise. They said they will also be sending notes over for review. [facility]09-18-[facility]24 NoteHNO ID: [id number] Author: ASUNCION ROSSI RN Service: ? Author Type: Registered Nurse Type: Progress Notes Filed: 05/22/2024 13:17 Note Text: CDM Telephonic Outreach Provider Action/FYI -chf, ckd, htn, dm Patient denies any questions, concerns, or needs. Reviewed upcoming appointments. Updated health care goals, falls, ADLS and social determinants. Contacted for: Routine Telephonic Outreach Contact made with patient: Yes Patient identified by name and date of . Discussed care with patient Are you experiencing any new or worsening symptoms you need to talk about today? No Disease Specific Do you check your blood pressure at home? Yes, Enter readings: it has been good Do you have new or worsening shortness [...] you check your daily weight at home? Yes, Have you noticed a sudden gain in weight greater than three pounds in a day or three pounds in a week? 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 Routed to: No Action Needed JEANNETTE Education Provided this Outreach: No Asuncion Rossi RN May 22, 2024 1:16 [facility]09-18-2024 History of Present illness Narrative* Asuncion Rossi RN - 05/22/2024 1:06 PM EDT CDM Telephonic Outreach Provider Action/FYI -chf, ckd, htn, dm Patient denies any questions, concerns, or needs. Reviewed upcoming appointments. Updated health care goals, falls, ADLS and social determinants. Contacted for: Routine Telephonic Outreach Contact made with patient: Yes Patient identified by name and date of . Discussed care with patient Are you experiencing any new or worsening symptoms you need to talk about today? No Disease Specific Do you check your blood pressure at home? Yes, Enter readings: it has been good Do you have new or worsening shortness [...] you check your daily weight at home? Yes, Have you noticed a sudden gain in weight greater than three pounds in a day or three pounds in a week? 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 Routed to: No Action Needed JEANNETTE Education Provided this Outreach: No Asuncion Rossi RN May 22, 2024 1:16 PM documented in this encounterMiami Valley Hospital09-18-2024 NotePatient Outreach ([facility]) SANDY BHATTI ([id number]) 1965 F Date Time Provider Department 05/22/24 ASUNCION ROSSI During your visit today, we recorded the following information about you: Asuncion Rossi RN 05/22/2024 1:17 PM Signed [facility] Telephonic Outreach Provider Action/FYI -chf, ckd, htn, dm Patient denies any questions, concerns, or needs. Reviewed upcoming appointments. Updated health care goals, falls, ADLS and social determinants. Contacted for: Routine Telephonic Outreach Contact made with patient: Yes Patient identified by name and date of . Discussed care with patient Are you experiencing any new or worsening symptoms you need to talk about today? No Disease Specific Do you check your blood pressure at home? Yes, Enter readings: it has been good Do you have new or worsening shortness [...] you check your daily weight at home? Yes, Have you noticed a sudden gain in weight greater than three pounds in a day or three pounds in a week? 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 Routed to: No Action Needed JEANNETTE Education Provided this Outreach: No Asuncion Rossi RN May 22, 2024 1:16 PM Allergies As of Date: 05/22/2024 Noted Allergy Reaction CODEINE 12/11/2006 8 - GI Upset LATEX 03/22/2012 4 - Hives Comments: 2006 had reaction after surgery PENICILLINS 12/11/2006 7 - Swelling CHLORHEXIDINE 11/26/2018 2 - Rash Date Reviewed: 05/16/2024 Reviewed by: Juana Chao RN - Fully Assessed Reason for Visit: CDM [Other] Cmt: Community Monitoring Outreach Call Prescriptions as of 06/19/2024 - cloNIDine HCl (CATAPRES) 0.2 mg tablet Take 1 tablet by mouth two times a day. - nitroglycerin sublingual (NITROQUICK) 0.4 mg SL tablet Dissolve 1 tablet under the tongue every 5 minutes as needed. - insulin needles, DISPOSABLE, (PEN NEEDLE) 31 gauge x 01/17 Use one needle per dose four times [...] twice daily as needed for Constipation. - NEPHRO-PETEY 0.8 mg tab Take 1 tablet by [...] once daily. Problem List As Of Date 05/22/2024 Noted Resolved Calculus of ureter [N20.1] 06/12/2007 [...] (end stage renal disease) (HCC) [N18.6] 04/21/2021 02 (more content not included)...[facility]09-[facility]24 NoteHNO ID: [id number] Author: SHAHLA DUEÑAS DO Service: ? Author Type: Resident Type: Anesthesia Procedure Notes Filed: 05/16/2024 16:13 Note Text: ANESTHESIOLOGY PROCEDURE NOTE Airway General Information Procedure Start Time/Medication Administration: 05/16/2024 3:43 PM Procedure End Time: 05/16/2024 3:44 PM Patient location during procedure: OR Timeout Performed Pre-procedure: timeout performed Consent Obtained: Yes Patient identity confirmed: arm band Staffing Anesthesiologist: Lius Burgos MD Resident: Shahla Dueñas DO Performed by: resident Indications and Patient Condition Indications for airway management: anesthesia Preoxygenated: yes anesthesia circuit Patient position: sniffing Method: asleep Difficult Mask: No Final Airway Details Final airway type: endotracheal airway Final Endotracheal Airway: ETT Cuffed: yes Successful intubation technique: video laryngoscopy Devices used: Spangler Endotracheal tube insertion site: oral Blade: Alicia Blade size: #3 ETT size (mm): 7.5 Measured from: lips Measurement (cm): 21 Placement verified by: capnometry Cormack-Lehane Classification: grade IIa - partial view of glottis Number of attempts at approach: 1 SIGNATURE: Shahla Dueñas DO PATIENT NAME: Sandy Bhatti DATE: May 16, 2024 TIME: 4:13 PM CSN: [id number] [facility]09-11-[facility] Telephone encounter Note* Telephone Encounter - Tiffany Nick RN - 05/15/2024 12:55 PM EDT Returned call to pt. She states that she found her written medication instructions which she received for her procedure scheduled tomorrow with Dr Thomas. Reviewed her medication list with her. She verbalizes understanding and agrees. Tiffany Nick RN May 15, 2024 12:57 PM [facility]09-[facility] Miscellaneous Notes* Telephone Encounter - Tiffany Nick RN - 05/15/2024 12:55 PM EDT Returned call to pt. She states that she found her written medication instructions which she received for her procedure scheduled tomorrow with Dr Thomas. Reviewed her medication list with her. She verbalizes understanding and agrees. Tiffany Nick RN May 15, 2024 12:57 PM * Telephone Encounter - Krys Fountain - 05/15/2024 12:43 PM EDT Patient's calls back requesting earlier start time. Per Dr. Thomas, moved the case to second round.. Patient's would like a call regarding patient's medication instructions because he never got them. documented in this encounterMiami [facility] Hospital09-11-2024 Telephone encounter Note * Telephone Encounter - Krys Fountain - 05/15/2024 12:43 PM EDT Patient's calls back requesting earlier start time. Per Dr. Thomas, moved the case to second round.. Patient's would like a call regarding patient's medication instructions because he never got them. [facility]09-[facility] Telephone encounter Note* Telephone Encounter - Krys Fountain - 05/15/2024 12:29 PM EDT Attempted patient and twice. Called and LVM W/ the following arrival instructions: 1:00 PM arrival to J1-2 NPO after midnight Continue following all medication guidelines Patient instructed to call back to acknowledge phone call. Phone number provided. [facility]09-11-2024 Miscellaneous Notes* Telephone Encounter - Krsy Fountain - 05/15/2024 12:29 PM EDT Attempted patient and twice. Called and LVM W/ the following arrival instructions: 1:00 PM arrival to J1-2 NPO after midnight Continue following all medication guidelines Patient instructed to call back to acknowledge phone call. Phone number provided. documented in this encounterMiami Valley Hospital09-09-2024 History of Present illness Narrative* Asuncion Rossi RN - 05/13/2024 2:41 PM EDT PRIMARY CARE COORDINATION QUICK NOTE Provider Action/FYI Received Datalot message- noted. Asuncion Rossi RN May 13, 2024 2:41 PM * Cony Desai MA - 05/13/2024 2:15 PM EDT POPULATION HEALTH NAVIGATION OUTREACH Action/FYI Message from Awilda states: Undergoing fistulogram/consult appointment today Reason for Outreach Medical Neighborhood: [facility] ADT Encounter: No Patient identified by name and : No CVC in Place: No Likelihood of Hospitalization: 2 Patient Group: [facility] Provider Group (Patients with [facility] or [facility]ps PCP) Patent Identified: Weekly Workflow ([facility] needs update within 7 days) Outreach Outcome: -- Unknown need Navigation Actions Taken: -- Route encounter to the PCC Routing reason: Unknown need to PCC Navigation Signature: Cony Desai MA May 13, 2024 2:15 PM documented in this encounterMiami [facility]09-06-2024 Telephone encounter Note * Telephone Encounter - Krys Fountain - 05/10/2024 3:12 PM EDT Called patient to ask if surgery date could be moved form 05/14 to 05/16. Patient is agreeable. Informed her we would call the day prior with arrival instructions. [facility]09-06-[facility] Miscellaneous Notes* Telephone Encounter - Krys Fountain - 05/10/2024 3:12 PM EDT Called patient to ask if surgery date could be moved form 05/14 to 05/16. Patient is agreeable. Informed her we would call the day prior with arrival instructions. documented in this encounterMi[facility]09-06-2024 Telephone encounter Note * Telephone Encounter - Treva Nguyen LPN - 05/10/2024 2:54 PM EDT Prescription Refill Information The patient has been identified by name and date of : Yes Caregiver verified no other encounters exist for this prescription request: Yes Caregiver confirmed with patient/requestor that no other refills are due, in the near future, with this provider at this time: Yes The last office visit in the department: 02/29/24 Does the patient have a future office visit with this provider/department: Yes 05/30/24 Requested Prescriptions Pending Prescriptions Disp Refills insulin needles, DISPOSABLE, (PEN NEEDLE) 31 gauge x 5/16 400 Each 3 Sig: Use one needle per dose four times per day. insulin lispro (HUMALOG KWIKPEN INSULIN) 100 unit/mL 15 mL 5 Sig: Inject 8 Units subcutaneously three times a day before meals. Add 1 unit for each 50 mg/dl above 150 Treva Nguyen LPN May 10, 2024 2:55 PM [facility]09-06-20[facility] Miscellaneous Notes* Telephone Encounter - Treva Nguyen LPN - 05/10/2024 2:54 PM EDT Prescription Refill Information The patient has been identified by name and date of : Yes Caregiver verified no other encounters exist for this prescription request: Yes Caregiver confirmed with patient/requestor that no other refills are due, in the near future, with this provider at this time: Yes The last office visit in the department: 02/29/24 Does the patient have a future office visit with this provider/department: Yes 05/30/24 Requested Prescriptions Pending Prescriptions Disp Refills insulin needles, DISPOSABLE, (PEN NEEDLE) 31 gauge x 5/16 400 Each 3 Sig: Use one needle per dose four times per day. insulin lispro (HUMALOG KWIKPEN INSULIN) 100 unit/mL 15 mL 5 Sig: Inject 8 Units subcutaneously three times a day before meals. Add 1 unit for each 50 mg/dl above 150 Treva Nguyen LPN May 10, 2024 2:55 PM documented in this encounterMiami [facility] Hospital09-04-2024 History of Present illness Narrative* Vita Purdy RN - 05/08/2024 5:32 PM EDT AMBULATORY PATIENT EDUCATION NOTE TOPIC: Pre-operative education READINESS TO LEARN COGNITIVE ABILITY: Alert and oriented MOTIVATION TO LEARN: Eager FAMILY SUPPORT: High - Very involved in pt care INSTRUCTION PROVIDED TO: Patient and Spouse PATIENT LEARNS BEST BY: Individual Instruction Written Instruction - Hand-outs Verbal Instruction FACTORS AFFECTING LEARNING: None PHYSICAL LIMITATIONS AFFECTING LEARNING: None LEARNING RESPONSE DIAGNOSIS: swelling RUE METHOD OF INSTRUCTION: Individual instruction Written instruction/Handouts Verbal instruction PATIENT / FAMILY RESPONSE: Verbalizes understanding of: PRE-OPERATIVE INSTRUCTIONS-Correct action to take to follow pre-operative instructions FOLLOW-UP PLAN: Patient instructed to call with any further issues Contact information given. SUPPLEMENTAL MATERIAL: Medication instruction material Pre-operative preparation instructions handout. REFERRAL (RECOMMENDATION): None Electronically Signed By: Vita Purdy RN In Department: VASCULAR SURG DEPT Time spent on patient education: 20 minutes. documented in this encounterMiami [facility] Hospital09-04-2024 History of Present illness Narrative* Del Hernandez MD - 05/08/2024 5:16 PM EDT Cardiothoracic Anesthesiology Preoperative Assessment Service Date: 05/08/2024 Service Time: 5:16 PM Primary Care Physician: Maldonado Raza MD Subjective Patient Entered Data: Scheduled procedure: Venogram Surgeon: Martha Scheduled date: 05/14/2024 HPI: 59 year old female with PMHx T2DM, HTN, TIA, ESRD on dialysis (MWF), former smoker who presents for preoperative evaluation prior to venogram. Pt denies any problems with prior anesthetics. We additionally discussed the anesthetic plan, what to expect, and any questions or concerns the patient may have had. Review no known heparin intolerance anticoagulant/antiplatelet medication(s) - Patient is taking anticoagulant and/or antiplatelet medication with plans of continuing medication no non-cardiac IEDs present no known esophageal disorders blood transfusion consented -. No resulted type & screen to review COVID-19 Immunization Status Covid-19 Vaccine (Series Information) Completed 06/29/2023 Imm Admin: COVID-19 vaccine, age 12+ yr, 2022- season (PFIZER-BIONTECH) 02/23/2023 Postponed until 02/24/2024 by Edie Samayoa LPN (Declined at this time) 10/13/2022 Imm Admin: COVID-19 original vaccine, age 12+ yr, monovalent (PFIZER- BIONTECH - DIMAS TOP) Only the first 3 history entries have been loaded, but more history exists. The patient has the following: ACTIVE PROBLEM LIST Controlled Type 2 Diabetes Mellitus Without Complication, With Long-Term Current Use of Insulin (Hcc) Htn (Hypertension) Hyperlipidemia Hypothyroid Ascvd (Arteriosclerotic Cardiovascular Disease) Proteinuria Esrd On Dialysis (Hcc) VT (ventricular tachycardia) Tubular Adenoma of Colon Secondary Hyperparathyroidism of Renal Origin (Hcc) Hypertrophic Cardiomyopathy (Hcc) Congestive Heart Failure (Hcc) PAST MEDICAL HISTORY 01/14/2018: Acute kidney failure (HCC) No date: Anxiety 12/2018: Arterial steal syndrome (HCC) Comment: Left AVF 06/12/2007: Calculus of ureter 03/01/2018: CKD (chronic kidney disease) stage V requiring chronic dialysis (HCC) Comment: Dr. Pendleton, nephrology. No date: Congestive heart failure (HCC) No date: Constipation 09/04/2006: Depression 03/27/2023: Encounter for screening for stenosis of carotid artery Comment: Less then 50% calcification bilaterally. 05/16/2019: ESRD on dialysis (HCC) No date: GERD (gastroesophageal reflux disease) No date: Hemorrhoids 11/07/2023: History of echocardiogram Comment: EF 67%. Severe septal left ventricular hypertrophy. Grade I left ventricular diastolic dysfunction. 07/25/2019: History of echocardiogram Comment: EF 70%. Normal scan 07/25/2019: History of stress test Comment: EF 62%. No ischemia. 07/09/2020: History of stress test Comment: EF 50%. Septal hypokinesis with borderline normal systolic function. 06/21/2023: History of stress test Comment: EF 67%. No ischemia. Normal scan 09/04/2001: HTN (hypertension) 09/04/1999: Hyperlipidemia 07/25/2019: Hypertrophic cardiomyopathy (HCC) Comment: echo in 2023 confirms 40mmhg gradient with valsalva 03/30/2012: Hypothyroid 06/14/2013: Proteinuria 06/12/2007: Renal colic 06/20/2023: Secondary hyperparathyroidism of renal origin (HCC) 05/17/2019: Steal syndrome dialysis vascular access ([facility]) No date: Thyroid disorder 06/2019: TIA (transient ischemic attack) 11/15/2022: Tubular adenoma of colon 09/04/1985: Type II or unspecified type diabetes mellitus without mention of complication, not stated as uncontrolled 06/01/2023: Ventral hernia with bowel obstruction PAST SURGICAL HISTORY 1992: APPENDECTOMY 04/20/2020: AV ANASTOMIES OPEN;BY BASILIC VEIN WINN; Right Comment: transpose basilic vein fistula, R arm 10/04/2017: AV FISTULA OR GRAFT VENOUS; Left 09/20/2018: AV FISTULA OR GRAFT VENOUS; Left Comment: redo, failure to mature 04/21/2021: AV FISTULA OR GRAFT VENOUS; Right 2005: BOWEL RESECTION HX 1985: CHOLECYSTECTOMY Comment: Cholecystectomy 11/15/2022: COLONOSCOPY SCREENING 2007: COLOSTOMY/SKIN LEVEL CECOSTOMY Comment: [id number], reversed 2007 11/14/2019: CREATION OF AVF, PERCUTANEOUS USING MAGNETIC-GUIDED ARTERIAL AND VENOUS CATHETERS AND RADIOFREQUENCY ENERGY; Right Comment: RIGHT AVF stage I 2006: EXPLORATORY LAPAROTOMY CELIOTOMY W/WO BIOPSY SPX Comment: Laparotomy, exp 05/31/2023: EXPLORATORY LAPAROTOMY, CELIOTOMY-SP Comment: lysis of adhesions, small bowel enterotomy repair. 01/22/2019: IR VENOUS FISTULAGRAM; Left Comment: Left SC balloon 03/12/2012: LEFT HEART CATH,PERCUTANEOUS Comment: Medical Mx 05/14/2018: LEFT HEART CATH,PERCUTANEOUS Comment: Medical Mx 05/16/2019: PAST SURGICAL HISTORY OF; Left Comment: JOHANNE ELLIOTT (proximal brachial to distal brachial artery bypass with RLE rGSV No date: PAST SURGICAL HISTORY OF; Left Comment: Cataract removed 1990: REDUCTION OF LARGE BREAST 1986: SALPINGECTOMY OR OOPHERECTOMY-ECTOPIC 1998: SLING OPER STRES INCONTINENCE 1991: TOTAL ABDOMINAL HYSTERECT W/WO RMVL TUBE OVARY Comment: Hysterectomy, RUSSELL FAMILY HISTORY Problem Relation Age of Onset Diabetes Mother Coronary Artery Disease Mother COPD Mother dec. age 78 Cancer Mother lung cancer Colon Cancer Father at age 52 Diabetes Sister Hypertension Sister Kidney Disease Brother other (Heart condition) Brother Diabetes Brother Cancer Brother lung cancer Coronary Artery Disease Brother dec. [place] 57 y.o. No Known Problems Maternal Grandmother No Known Problems Maternal Grandfather No Known Problems Paternal Grandmother No Known Problems Paternal Grandfather Social History Tobacco Use Smoking status: Former Current packs/day: 0.00 Average packs/day: 1.5 packs/day for 3.0 years (4.5 ttl pk-yrs) Types: Cigarettes Start date: 09/04/2002 Quit date: 09/04/2005 Years since quittin.6 Smokeless tobacco: Never Tobacco comments: quit march 10 Vaping Use Vaping status: Never Used Substance Use Topics Alcohol use: No Drug use: No Prior to Admission medications as of 05/08/24 1533 Medication Sig Last Dose Taking atorvastatin (LIPITOR) 40 mg tablet Take 1 [...] repeat in 2 hours if ineffective insulin lispro (HUMALOG KWIKPEN INSULIN) 100 unit/mL Inject 8 Units subcutaneously three times a day before meals. Add 1 unit for each 50 mg/dl above 150 insulin detemir U-100 (LEVEMIR FLEXTOUCH U-100 INSULIN) 100 unit/mL (3 mL) injection pen Inject 48 Units subcutaneously daily at bedtime. insulin needles, DISPOSABLE, (PEN NEEDLE) 31 gauge x 5/16 Use one needle per dose four times per day. ferric citrate 210 mg iron tab Take 1 tablet by mouth once daily. docusate sodium (COLACE) 100 mg capsule Take 1 capsule by mouth twice daily as needed for Constipation. nitroglycerin sublingual (NITROQUICK) 0.4 mg SL tablet Dissolve 0.4 mg under the tongue every 5 minutes as needed. NEPHRO-PETEY 0.8 mg tab Take 1 tablet by [...] 1 tablet by mouth once daily. No medication comments found. ALLERGIES Allergen Reactions Codeine GI Upset Latex Hives 2005 had reaction after surgery Penicillins Swelling Chlorhexidine Rash Objective Pain Assessment: Vitals: There were no vitals taken for this visit. Diagnostic tests reviewed for today's visit: Lab Value Units Date High Low HB No results within date range. HCT No results within date range. WBC No results within date range. PLT No results within date range. NA 140 mmol/L 02/29/2024 144 136 K 4.5 mmol/L 02/29/2024 5.1 3.7 GLUC 183 mg/dL 02/29/2024 99 74 BUN 36 mg/dL 02/29/2024 21 7 CREAT 6.08 mg/dL 02/29/2024 0.96 0.58 PTSEC No results within date range. INR No results within date range. APTT No results within date range. ALT 27 U/L 02/29/2024 38 7 AST 34 U/L 02/29/2024 35 13 TBILI 0.3 mg/dL 02/29/2024 1.3 0.2 TSH 1.900 mIU/L 02/29/2024 4.200 0.270 Lab Value Units Date High Low HCGQT No results within date range. UHCG No results within date range. HCG, BODY* No results within date range. Lab Value Units Date High Low ABORHD No results within date range. ABSCREEN No results within date range. Hemoglobin A1C (%) Date Value 02/29/2024 5.7 02/23/2023 6.9 05/02/2022 6.2 03/30/2021 6.2 03/10/2021 6.2 11/12/2019 5.7 02/10/2018 7.1 10/16/2017 7.8 Hemoglobin A1C (POCT) (%) Date Value 05/21/2019 5.7 11/13/2018 7.0 08/14/2018 6.6 05/10/2018 7.5 Recent Results (from the past 8760 hour(s)) ECG COMPLETE Collection Time: 01/18/24 11:28 AM Impression Sinus rhythm Prolonged MD interval Right bundle branch block/LAHB LVH with IVCD and secondary repol abnrm Prolonged QT interval Abnormal ECG Confirmed by ANDRES WYNNE M.D. ([id number]) on 01/23/2024 9:30:41 PM ECHO Collection Time: 11/07/23 1:46 PM Impression CONCLUSIONS: - Technically difficult exam due to body habitus. - Exam indication: Cardiac murmur - The left ventricle is normal in size. There is severe septal left ventricular hypertrophy. Concerning for HCM. Left ventricular systolic function is normal. EF = 67 5% (2D 4-ch.) Grade I left ventricular diastolic dysfunction. - The right ventricle is normal in size. Right ventricular systolic function is normal. - There is TAMIA at rest with an LVOT gradient of 13 mmHg. With valsalva LVOT gradient increased to 35 mmHg. Amyl nitrite not available. - The patient has not had a prior CC echocardiographic exam for comparison. * * * Final * * * XR CHEST 2V FRONTAL/LAT Collection Time: 10/26/23 2:11 PM Impression IMPRESSION: Stable exam without acute findings. [employer]ilities Repairer: LINO Transcribe Date/Time: Oct 27 2023 12:45P Dictated by : NAYELI CURRIE MD This examination was interpreted and the report reviewed and electronically signed by: NAYELI CURRIE MD on Oct 27 2023 12:46PM EST Assessment No problem-specific Assessment & Plan notes found for this encounter. ANESTHESIA FINDINGS: Intubation History: No history of difficult intubation. No abnormal airway history Significant Anesthesia Considerations: Airway History: No history of difficult airway No abnormal airway history Prepared for Surgery: The Following Tests/Procedures Have Been Initiated: No orders of the defined types were placed in this encounter. ASA Class: 3 Planned Anesthetic: general and MAC I - PHYSICAL EVALUATION AIRWAY Patient intubated: No. Tracheostomy tube not present Mallampati: II. TM distance: >3 FB. Neck ROM: full ROM without neurological symptoms. Mouth opening: adequate. Short neck: no. Thick neck: no Carlos present: no Microretrognathia/Micronagthia/Recessed Chin: No II - ANESTHESIA PLAN ASA Score: 3 Anesthetic Plan: general and MAC Beta Chris Monitoring Plan Post Procedure Analgesic Plan Informed Consent Anesthetic risks, benefits, alternatives, personnel and consent discussed: yes. Patient / Responsible Green Party agrees to proceed: yes Patient / Surrogate agrees to blood products: Yes Discussed the possibility of lip / dental damage: yes Instructions Given to Patient: Instructions located in the after visit summary. Patient given verbal and written preop instructions and voices comprehension and compliance. Signature: Del Hernandez MD Patient Name: Sandy Bhatti Date: May 08, 2024 Time: 5:16 PM Pager/Contact #: documented in this encounter[facility] History of Present illness Narrative* Luna Thomas MD - 05/08/2024 3:48 PM EDT [facility] STAFF PHYSICIAN NOTE OF PERSONAL INVOLVEMENT IN CARE IMPRESSION: Patient is a 59 year old female doing well, denies any prolonged bleeding or access dysfunction. Complains of right arm swelling for approximately 4 weeks. Strong thrill no pulsatility. Volume flows greater than liter per minute. PLAN: Right arm swelling indicative of central vein stenosis. She will require right arm venogram with intervention and we will schedule this at her convenience I have reviewed the documentation obtained and documented by the Resident and I have personally performed a face to face assessment of the patient and have personally participated in the larios components of the visit which includes medical decision making.. I have discussed the case and management ofthe patient's care. (Outpatient): I personally spent 30 total minutes total time involved in the management and care ofthis patient. STAFF PHYSICIAN: Luna Thomas MD DATE OF SERVICE: May 08, 2024 TIME OF SERVICE: 3:48 PM * Vilma Coffey DPM - 05/08/2024 3:42 PM EDT Images from the original note were not included. [facility] DEPARTMENT OF VASCULAR SURGERY OUTPATIENT VISIT DATE May 08, 2024 OUTPATIENT VISIT TYPE ESTABLISHED SERVICE DATE: 05/08/2024 SERVICE TIME: 3:42 PM PRIMARY CARE PHYSICIAN: Maldonado Raza MD HISTORY OF PRESENT ILLNESS: Ms. Bhatti is a 59 year old female who presents today for a vascular surgery follow-up visit regarding her upper right extremity fistula.She states that she is able to be dialyzed but that she did notice swelling and warmth to the right upper extremity around two weeks ago. PAST MEDICAL HISTORY 01/14/2018: Acute kidney failure (HCC) No date: Anxiety 12/2018: Arterial steal syndrome ([facility]) Comment: Left AVF 06/12/2007: Calculus of ureter 03/01/2018: CKD (chronic kidney disease) stage V requiring chronic dialysis ([facility]) Comment: Dr. Pendleton, nephrology. No date: Congestive heart failure (HCC) No date: Constipation 09/04/2006: Depression 03/27/2023: Encounter for screening for stenosis of carotid artery Comment: Less then 50% calcification bilaterally. 05/16/2019: ESRD on dialysis (HCC) No date: GERD (gastroesophageal reflux disease) No date: Hemorrhoids 11/07/2023: History of echocardiogram Comment: EF 67%. Severe septal left ventricular hypertrophy. Grade I left ventricular diastolic dysfunction. 07/25/2019: History of echocardiogram Comment: EF 70%. Normal scan 07/25/2019: History of stress test Comment: EF 62%. No ischemia. 07/09/2020: History of stress test Comment: EF 50%. Septal hypokinesis with borderline normal systolic function. 06/21/2023: History of stress test Comment: EF 67%. No ischemia. Normal scan 09/04/2001: HTN (hypertension) 09/04/1999: Hyperlipidemia 07/25/2019: Hypertrophic cardiomyopathy (HCC) Comment: echo in 2023 confirms 40mmhg gradient with valsalva 03/30/2012: Hypothyroid 06/14/2013: Proteinuria 06/12/2007: Renal colic 06/20/2023: Secondary hyperparathyroidism of renal origin (HCC) 05/17/2019: Steal syndrome dialysis vascular access ([facility]) No date: Thyroid disorder 06/2019: TIA (transient ischemic attack) 11/15/2022: Tubular adenoma of colon 09/04/1985: Type II or unspecified type diabetes mellitus without mention of complication, not stated as uncontrolled 06/01/2023: Ventral hernia with bowel obstruction PAST SURGICAL HISTORY 1992: APPENDECTOMY 04/20/2020: AV ANASTOMIES OPEN;BY BASILIC VEIN WINN; Right Comment: transpose basilic vein fistula, R arm 10/04/2017: AV FISTULA OR GRAFT VENOUS; Left 09/20/2018: AV FISTULA OR GRAFT VENOUS; Left Comment: redo, failure to mature 04/21/2021: AV FISTULA OR GRAFT VENOUS; Right 2006: BOWEL RESECTION HX 1985: CHOLECYSTECTOMY Comment: Cholecystectomy 11/15/2022: COLONOSCOPY SCREENING 2006: COLOSTOMY/SKIN LEVEL CECOSTOMY Comment: [id number], reversed 2007 11/14/2019: CREATION OF AVF, PERCUTANEOUS USING MAGNETIC-GUIDED ARTERIAL AND VENOUS CATHETERS AND RADIOFREQUENCY ENERGY; Right Comment: RIGHT AVF stage I 2006: EXPLORATORY LAPAROTOMY CELIOTOMY W/WO BIOPSY SPX Comment: Laparotomy, exp 05/31/2023: EXPLORATORY LAPAROTOMY, CELIOTOMY-SP Comment: lysis of adhesions, small bowel enterotomy repair. 01/22/2019: IR VENOUS FISTULAGRAM; Left Comment: Left SC balloon 03/12/2012: LEFT HEART CATH,PERCUTANEOUS Comment: Medical Mx 05/14/2018: LEFT HEART CATH,PERCUTANEOUS Comment: Medical Mx 05/16/2019: PAST SURGICAL HISTORY OF; Left Comment: JOHANNE ELLIOTT (proximal brachial to distal brachial artery bypass with RLE rGSV No date: PAST SURGICAL HISTORY OF; Left Comment: Cataract removed 1989: REDUCTION OF LARGE BREAST 1985: SALPINGECTOMY OR OOPHERECTOMY-ECTOPIC 1998: SLING OPER STRES INCONTINENCE 1990: TOTAL ABDOMINAL HYSTERECT W/WO RMVL TUBE OVARY Comment: Hysterectomy, [facility]USSELL SOCIAL HISTORY Social History Tobacco Use Smoking status: Former Current packs/day: 0.00 Average packs/day: 1.5 packs/day for 3.0 years (4.5 ttl pk-yrs) Types: Cigarettes Start date: 09/04/2002 Quit date: 09/04/2005 Years since quittin.6 Smokeless tobacco: Never Tobacco comments: quit march 10 Vaping Use Vaping status: Never Used Substance Use Topics Alcohol use: No Drug use: No MEDICATIONS: atorvastatin (LIPITOR) 40 mg tablet Take 1 [...] repeat in 2 hours if ineffective insulin lispro (HUMALOG KWIKPEN INSULIN) 100 unit/mL Inject 8 Units subcutaneously three times a day before meals. Add 1 unit for each 50 mg/dl above 150 insulin detemir U-100 (LEVEMIR FLEXTOUCH U-100 INSULIN) [...] the tongue every 5 minutes as needed. NEPHRO-PETEY 0.8 mg tab Take 1 tablet by [...] surgery Penicillins Swelling Chlorhexidine Rash PHYSICAL EXAM: BP 167/67 Pulse 82 General: Alert and oriented Integumentary: Normal color, no rash, no lesions. HEENT: EOM, pupils equal, round and reactive. Cardiovascular: Normal S1 & S2, no rubs, murmurs or gallops. No JVD., Pulse regular. Lungs: Normal breath sounds, no wheezes or crackles. Abdomen: Soft, non-tender, no rigidity. Extremities: Edema and erythema to the right upper extremity Neurological: Normal cognition and motor skills. Vascular: Radial Pulse Right: Normal - Left: Normal REVIEW OF SYSTEMS PAIN ASSESSMENT: Negative for pain, history of chronic pain, or current treatment for a chronic pain condition. 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 No other significant change noted. RIGHT SIDE Brachial artery proximal: patent . brachial-brachial loop graft : patent . Brachial vein : patent . brachial vein to axillary vein bypass graft : patent . Axillary vein : patent . Subclavian vein : patent . Limited visualization in the supraclavicular region due to body habitus. Innominate artery : unable to visualize . Brachial-brachial loop graft has inadequate flow for dialysis. Volume flows may be inaccurate due to same day dialysis. IMPRESSION: Ms. Bhatti is a 59 year old female presenting with edema and erythema of the right upper extremity. Patient has an AV fistula on the right upper extremity but was able to be dialyzed today without complication. PLAN and RECOMMENDATIONS: Patient was consented for upper right extremity venogram with possible intervention. Vilma BAUERM PGY-1 SIGNATURE: Luna Thomas MD PATIENT NAME: Sadny Bhatti DATE: May 08, 2024 TIME: 3:42 PM * Luna Thomas MD - 05/08/2024 3:33 PM EDT xx documented in this encounterMi[facility]08-[facility]24 History of Present illness Narrative* Syeda Frost RN - 04/25/2024 10:17 AM EDT CDM Telephonic Outreach Provider Action/FYI Contacted for: Routine Telephonic Outreach Contact made with patient: No, unable to leave message. Will reattempt call Syeda Frost RN April 25, 2024 10:17 AM * Syeda Frost RN - 04/24/2024 5:09 PM EDT [facility] Telephonic Outreach Provider Action/FYI Contacted for: Routine Telephonic Outreach Contact made with patient: No, unable to leave message. Will reattempt call Syeda Frost RN April 24, 2024 5:10 PM documented in this encounterMi[facility]08-19-2024 Telephone encounter Note * Telephone Encounter - Asuncion Pinedo - 04/22/2024 1:30 PM EDT Referring Physician: ? Requesting Physician: Dr. Radha Thomas Diagnosis: Fistulagram due to high arterial pressure arm/hand swelling and diminished BT Records scanned into EPIC [facility] Miscellaneous Notes* Telephone Encounter - Asuncion Pinedo - 04/22/2024 1:30 PM EDT Referring Physician: ? Requesting Physician: Dr. Radha Thomas Diagnosis: Fistulagram due to high arterial pressure arm/hand swelling and diminished BT Records scanned into EPIC documented in this encounterMi[facility]08-07-2024 History of Present illness Narrative* Tea Tierney MA - 04/10/2024 4:01 PM EDT [facility] NAVIGATION OUTREACH Spoke to Sandy Scheduled mammograms MAMMOGRAMS Reason for Outreach Care Gap/HCC or Scheduling Wellness Visits Care Gaps due: Breast Cancer Screening Patient Contacted: Spoke to patient/parent/or legal guardian Patient identified by name and : Yes Care Gap/HCC/Scheduling Wellness actions taken: Patient scheduled/pended labs: Breast Cancer Screening Navigation Signature: Tea Tierney MA April 10, 2024 4:01 PM documented in this encounterMiami [facility]07-26-2024 History of Present illness Narrative* Syeda Frost RN - 03/29/2024 2:54 PM EDT CDM Telephonic Outreach Provider Action/FYI CDM :CKD Pt denies symptoms, or needs. Instructed to call PCP with any changes in condition Pt verbalized understanding and appreciation for call. SDH, Goals updated Contacted for: Routine Telephonic Outreach Contact made with patient: Yes Patient identified by name and date of . Discussed care with patient Are you experiencing any new or worsening symptoms you need to talk about today? No Disease Specific Do you check your blood pressure at home? Yes, Enter readings: 129/60 at Dialysis Do you have new or worsening shortness of breath with activity? No Do you feel like you are dehydrated for any reason, including not being able to eat or drink normally, or having less urine/much darker urine than normal for you? No Do you check your daily weight at home? Yes, Have you noticed a sudden gain in weight greater than three pounds in a day or three pounds in a week? 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 Routed to: No Action Needed JEANNETTE Education Provided this Outreach: No Syeda Frost RN March 29, 2024 2:55 PM documented in this encounterMi[facility]06-27-2024 History of Present illness Narrative* Maldonado Raza MD - 02/29/2024 3:38 PM EDT This note was created using Tripvistoriter. Subjective Sandy Bhatti is a 59 year old female. She had weakness during dialysis days, and requested handicap parking. Her hypertension was not at goal. She was taking all her medications. Diabetes was labile. Review of Systems Constitutional: Negative for fatigue and fever. Respiratory: Negative for shortness of breath. Cardiovascular: Negative for chest pain, palpitations and leg swelling. Gastrointestinal: Negative. Neurological: Negative for dizziness and headaches. ACTIVE PROBLEM LIST Controlled Type 2 Diabetes Mellitus Without Complication, With Long-Term Current Use of Insulin (Hcc) Htn (Hypertension) Hyperlipidemia Hypothyroid Ascvd (Arteriosclerotic Cardiovascular Disease) Proteinuria Esrd On Dialysis (Hcc) VT (ventricular tachycardia) Tubular Adenoma of Colon Secondary Hyperparathyroidism of Renal Origin (Hcc) Hypertrophic Cardiomyopathy (Hcc) Congestive Heart Failure (Hcc) Social History Tobacco Use Smoking status: Former Packs/day: 1.50 Years: 3.00 Additional pack years: 0.00 Total pack years: 4.50 Types: Cigarettes Quit date: 09/04/2005 Years since quittin.4 Smokeless tobacco: Never Tobacco comments: quit march 10 Vaping Use Vaping Use: Never used Substance Use Topics Alcohol use: No Drug use: No Current Outpatient Medications Medication Sig ciprofloxacin HCl (CILOXAN) 0.3 % ophthalmic solution Use 1 Drop in the left eye four times daily. cloNIDine HCl (CATAPRES) 0.3 mg tablet Take 1 tablet by mouth daily at bedtime. SUMAtriptan (IMITREX) 50 mg tablet Take one tablet by mouth at onset of migraine. May repeat in 2 hours if ineffective insulin lispro (HUMALOG KWIKPEN INSULIN) 100 unit/mL Inject 8 Units subcutaneously three times a day before meals. Add 1 unit for each 50 mg/dl above 150 insulin detemir U-100 (LEVEMIR FLEXTOUCH U-100 INSULIN) 100 unit/mL (3 mL) injection pen Inject 48 Units subcutaneously daily at bedtime. insulin needles, DISPOSABLE, (PEN NEEDLE) 31 gauge x 5/16 Use one needle per dose four times per day. ferric citrate 210 mg iron tab Take 1 tablet by mouth once daily. docusate sodium (COLACE) 100 mg capsule Take 1 capsule by mouth twice daily as needed for Constipation. nitroglycerin sublingual (NITROQUICK) 0.4 mg SL tablet Dissolve 0.4 mg under the tongue every 5 minutes as needed. NEPHRO-PETEY 0.8 mg tab Take 1 tablet by [...] facility-administered medications for this visit. Objective BP 181/64 (BP Site: Left Arm, BP Position: Sitting, BP Cuff Size: Large Adult) Pulse 73 Temp 36.6 C (97.8 F) (Temporal) Wt 67.5 kg (148 lb 12.8 oz) BMI 27.22 kg/m Physical Exam Constitutional: General: She is not in acute distress. Appearance: She is not ill-appearing. Cardiovascular: Rate and Rhythm: Normal rate and regular rhythm. Heart sounds: Murmur heard. Systolic murmur is present with a grade of 1/6. Comments: LSB Pulmonary: Effort: No respiratory distress. Breath sounds: No wheezing or rales. Abdominal: Tenderness: There is no abdominal tenderness. Musculoskeletal: Right lower leg: No edema. Left lower leg: No edema. Neurological: Mental Status: She is alert. Assessment and Plan 1. Controlled type 2 diabetes mellitus without complication, with long-term current use of insulin ([facility]) - ICD9: 250.00, V58.67, ICD10: E11.9, Z79.4 (primary diagnosis) - Worsening control - Continue current medications - COMPREHENSIVE METABOLIC PANEL - HEMOGLOBIN A1C - LIPID PANEL, NONFASTING 2. Primary hypertension - ICD9: 401.9, ICD10: I10 - Worsening control - LISINOPRIL 40 MG TABLET - AMLODIPINE 10 MG TABLET. Dose increased from 5 mg to 10 mg daily. 3. Other hyperlipidemia - ICD9: 272.4, ICD10: E78.49 Recheck labs. - ATORVASTATIN 40 MG TABLET 4. Hypothyroidism, unspecified type - ICD9: 244.9, ICD10: E03.9 - continue current dose of Synthroid - LEVOTHYROXINE 125 MCG TABLET - THYROID STIMULATING HORMONE 5. ASCVD (arteriosclerotic cardiovascular disease) - ICD9: 429.2, 440.9, ICD10: I25.10 Stable. - METOPROLOL TARTRATE 25 MG TABLET 6. ESRD on dialysis ([facility]) - ICD9: 585.6, V45.11, ICD10: N18.6, Z99.2 - Continue per nephrology. 7. Congestive heart failure, unspecified HF chronicity, unspecified heart failure type (HCC) - ICD9: 428.0, ICD10: I50.9 - Compensated. - Continue current medications 8. VT (ventricular tachycardia) - ICD9: 427.1, ICD10: I47.20 - No recurrence. 9. Secondary hyperparathyroidism of renal origin (HCC) - ICD9: 588.81, ICD10: N25.81 - Check labs. 10. Hypertrophic cardiomyopathy (HCC) - ICD9: 425.18, ICD10: I42.[address] Pickett. Maldonado Raza MD documented in this encounterMi[facility]06-24-2024 History of Present illness Narrative* Syeda Frost RN - 02/26/2024 12:25 PM EDT CDM Telephonic Outreach Provider Action/FYI CDM: CKD, Dialysis Mon, Mon, Monday Pt denies symptom changes, concerns or needs SDH, Goals updated Contacted for: Routine Telephonic Outreach Contact made with patient: Yes Patient identified by name and date of . Discussed care with patient Are you experiencing any new or worsening symptoms you need to talk about today? No Disease Specific Do you check your blood pressure at home? Yes, Enter readings: Pt noted it was normal at Dialysis today Do you have new or worsening shortness of breath with activity? No Do you feel like you are dehydrated for any reason, including not being able to eat or drink normally, or having less urine/much darker urine than normal for you? No Do you check your daily weight at home? Yes, Have you noticed a sudden gain in weight greater than three pounds in a day or three pounds in a week? 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 Routed to: No Action Needed JEANNETTE Education Provided this Outreach: No Syeda Frost RN February 26, 2024 12:28 PM documented in this encounterMi[facility]06-11-2024 NoteDate of Procedure 02/13/2024. 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 Start time: 1:37 PM. Stop time: 1:37 PM. Notes s/p dmek graft attached no [id number] History of Present illness Narrative* Héctor Cruz MD - 02/13/2024 2:25 PM EDT Encounter Diagnosis ICD-10-CM 1. Status post corneal transplant Z94.7 OCT ANTERIOR SEGMENT CIRRUS OS (LEFT EYE) 2. 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 Day for YAG, okay to taper pred acetate 1% to every day at thattime and continue shelter can return to me in 6-9 months or PRN I have confirmed and edited as necessary the relevant ophthalmic history, ROS, and the neuro exam findings as obtained by others. I have seen and examined this patient. I have discussed the case and the management of this patient's care with the Resident/Fellow, if applicable. I also have reviewed and agree with the assessment and plan as stated above and agree with all of its relevant components. Héctor Cruz MD documented [facility] encounter[facility]05[facility] History of Present illness Narrative* Syeda Frost RN - 01/24/2024 10:24 AM EDT CDM Telephonic Outreach Provider Action/FYI CDM :CKD, ESRD Pt reports 01/18/24 underwent Right AV fistula Thrombectomy, Pt denies pain, swelling or discoloration of arm or hand, denies other symptom concerns or needs. . Completed dialysis today, AV fistula functioning Contacted for: Routine Telephonic Outreach Contact made with patient: Yes Patient identified by name and date of . Discussed care with patient Are you experiencing any new or worsening symptoms you need to talk about today? No Disease Specific Do you check your blood pressure at home? Yes, Enter readings: Taken at Dialysis today Do you have new or worsening shortness of breath with activity? No Do you feel like you are dehydrated for any reason, including not being able to eat or drink normally, or having less urine/much darker urine than normal for you? No Do you check your daily weight at home? Yes, Have you noticed a sudden gain in weight greater than three pounds in a day or three pounds in a week? 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 Routed to: No Action Needed JEANNETTE Education Provided this Outreach: No Syeda Frost RN January 24, 2024 10:48 AM documented in this encounterMi[facility]05-16-[facility]24 NoteHNO ID: [id number] Author: CHET MILAN RN Service: Nursing Author Type: Registered Nurse Type: Nursing Progress Note Filed: 01/18/2024 15:36 Note Text: [id number] [facility] recovery [facility] Telephone encounter Note* Telephone Encounter - Leola Huffman RN - 01/17/2024 10:45 AM EDT Procedure date: 01/18/24 Spoke with: Patient Arrival time: 1130 Hospital: [facility] first: Yes NPO time: 0530 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 May take Blood pressure and heart medications in the morning with small sip of water. Pt verbalized understanding. All questions answered. 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 May take Blood pressure and heart medications in the morning with small sip of water. Pt verbalized understanding. All questions answered. Leola Huffman RN documented in this encounterMiami [facility]05-09-2024 Telephone encounter Note * Telephone Encounter - Joyce Silva - 01/11/2024 2:28 PM EDT Patient's spouse, Warren returned call and confirmed 01/17 procedure date. [facility]05-[facility] Miscellaneous Notes* Telephone Encounter - Joyce Silva - 01/11/2024 2:28 PM EDT Patient's spouse, Warren returned call and confirmed 01/17 procedure date. * Telephone Encounter - Sanjana Berger - 01/11/2024 2:26 PM EDT Left message for patient to call office to confirm fistulagram on 01/18/2024 documented in this encounterMiami [facility]05-09-2024 Telephone encounter Note * Telephone Encounter - Sanjana Berger - 01/11/2024 2:26 PM EDT Left message for patient to call office to confirm fistulagram on 01/18/2024 [facility] Work Phone: 1(400) 533-903305-09-2024 Telephone encounter Note* Telephone Encounter - Shayy Garcia RN - 01/11/2024 2:14 PM EDT Received a message to schedule for R AVG fistulogram Surgical case request filled out and sent to schedulers Shayy Bello RN [facility]05-09-[facility]24 Miscellaneous Notes* Telephone Encounter - Shayy Garcia RN - 01/11/2024 2:14 PM EDT Received a message to schedule for R AVG fistulogram Surgical case request filled out and sent to schedulers Shayy Bello RN * Telephone Encounter - Lakshmi Davies RN - 01/11/2024 1:22 PM EDT Vascular Surgery Access Center Dialysis Center/Dialysis Center Contact: Awilda [place] [phone] [only open Mon, Weds, Fri] Outside Security Architect Contact (name, number) Were you able to be Dialyzed? Yes Does the patient have a thrill? Yes Type of Access: AV Graft Location: RUE Problem: Edema Recent Intervention (30 days): No CC Vascular Surgeon/Office/Location: Dr Thomas at [facility], however last office visit was 05/25/21 Patient Location/Patient phone number: Home - see Epic NPO since n/a (Please instruct caller to make patient NPO now) Is the patient on any anticoagulation? no If yes, date and time of last dose n/a (Include anticoagulation instructions under comments) Comments Received voicemail from Evelina (call back number she left in the message [phone]) requesting pt be set up for a fistulagram. Attempted to call her back to obtain further information, but was unable to reach her at the number she left. Called pt to obtain details of concern. Pt stated that her right arm is swollen. She stated that they had trouble doing dialysis, and that they think there is a blockage in there. Pt stated that she was able to get a full treatment yesterday (01/10/24). Informed her that either myself or someone else would contact her to schedule an intervention. Pt stated understanding and agreeable to this plan. Spoke with Sanjana Ynug who stated that there is availability for firstulagram on 01/17. Patient information sent to her. Lakshmi Davies RN documented in this encounterMiami [facility] Hospital05-09-2024 Telephone encounter Note * Telephone Encounter - Lakshmi Davies RN - 01/11/2024 1:22 PM EDT Vascular Surgery Access Center Dialysis Center/Dialysis Center Contact: Awilad [place] [phone] [only open Mon, Weds, Fri] Outside Security Architect Contact (name, number) Were you able to be Dialyzed? Yes Does the patient have a thrill? Yes Type of Access: AV Graft Location: RUE Problem: Edema Recent Intervention (30 days): No CC Vascular Surgeon/Office/Location: Dr Thomas at [facility], however last office visit was 05/25/21 Patient Location/Patient phone number: Home - see Epic NPO since n/a (Please instruct caller to make patient NPO now) Is the patient on any anticoagulation? no If yes, date and time of last dose n/a (Include anticoagulation instructions under comments) Comments Received voicemail from Evelina (call back number she left in the message [phone]) requesting pt be set up for a fistulagram. Attempted to call her back to obtain further information, but was unable to reach her at the number she left. Called pt to obtain details of concern. Pt stated that her right arm is swollen. She stated that they had trouble doing dialysis, and that they think there is a blockage in there. Pt stated that she was able to get a full treatment yesterday (01/10/24). Informed her that either myself or someone else would contact her to schedule an intervention. Pt stated understanding and agreeable to this plan. Spoke with Sanjana Yung who stated that there is availability for firstulagram on 01/17. Patient information sent to her. Lakshmi Davies, RN [facility] Work Phone: [phone] Telephone encounter Note* Telephone Encounter - Eve Lawson - 01/09/2024 10:28 AM EDT LV: 11/22/23 FV: 02/13/24 Patient's request for medication is as follows: Requested Prescriptions Pending Prescriptions Disp Refills ciprofloxacin HCl (CILOXAN) 0.3 % ophthalmic solution 5 mL 0 Sig: Use 1 Drop in the left eye four times daily. Prescription(s) as above. Please process accordingly. Héctor Bernard MD filed at 11/22/2023 1:56 PM Status: Signed Encounter Diagnosis ICD-10-CM 1. Status post corneal transplant Z94.7 OCT ANTERIOR SEGMENT CIRRUS OS (LEFT EYE) 2 week s/p DMEK requiring rebubbling on 11/16/23, still with incomplete attachment but mostly attached and some improvement in edema new epithelium defect , likely combination of medicamentosa + neurotrophic + bullae recommend decrease pred acetate 1% and cipro to BID discontinue ketorolac discontinue erythromycin follow-up 2 weeks next visit va iop ou ant seg oct os possible regraft if not improving I have confirmed and edited as necessary the relevant ophthalmic history, ROS, and the neuro exam findings as obtained by others. I have seen and examined this patient. I have discussed the case and the management of this patient's care with the Resident/Fellow, if applicable. I also have reviewed and agree with the assessment and plan as stated above and agree with all of its relevant components. Héctor Cruz MD [facility]05-07-[facility] Miscellaneous Notes* Telephone Encounter - Eve Lawson - 01/09/2024 10:28 AM EDT LV: 11/22/23 FV: 02/13/24 Patient's request for medication is as follows: Requested Prescriptions Pending Prescriptions Disp Refills ciprofloxacin HCl (CILOXAN) 0.3 % ophthalmic solution 5 mL 0 Sig: Use 1 Drop in the left eye four times daily. Prescription(s) as above. Please process accordingly. Héctor Bernard MD filed at 11/22/2023 1:56 PM Status: Signed Encounter Diagnosis ICD-10-CM 1. Status post corneal transplant Z94.7 OCT ANTERIOR SEGMENT CIRRUS OS (LEFT EYE) 2 week s/p DMEK requiring rebubbling on 11/16/23, still with incomplete attachment but mostly attached and some improvement in edema new epithelium defect , likely combination of medicamentosa + neurotrophic + bullae recommend decrease pred acetate 1% and cipro to BID discontinue ketorolac discontinue erythromycin follow-up 2 weeks next visit va iop ou ant seg oct os possible regraft if not improving I have confirmed and edited as necessary the relevant ophthalmic history, ROS, and the neuro exam findings as obtained by others. I have seen and examined this patient. I have discussed the case and the management of this patient's care with the Resident/Fellow, if applicable. I also have reviewed and agree with the assessment and plan as stated above and agree with all of its relevant components. Héctor Cruz MD documented in this encounterMi[facility]05-07-2024 Telephone encounter Note * Telephone Encounter - Eve Lawson - 01/09/2024 10:11 AM EDT Images from the original note were not included. 11/22/23 FV: 02/13/24 Sandy Bhatti P [facility]ht [facility] (supporting Héctor Cruz MD)3 hours ago (7:06 AM) LM Good morning we were just checking to see if Sandy should continue eye drops on left eye till she sees you in February . Thanks Héctor Cruz MD filed at 11/22/2023 1:56 PM Status: Signed Encounter Diagnosis ICD-10-CM 1. Status post corneal transplant Z94.7 OCT ANTERIOR SEGMENT CIRRUS OS (LEFT EYE) 2 week s/p DMEK requiring rebubbling on 11/16/23, still with incomplete attachment but mostly attached and some improvement in edema new epithelium defect , likely combination of medicamentosa + neurotrophic + bullae recommend decrease pred acetate 1% and cipro to BID discontinue ketorolac discontinue erythromycin follow-up 2 weeks next visit va iop ou ant seg oct os possible regraft if not improving I have confirmed and edited as necessary the relevant ophthalmic history, ROS, and the neuro exam findings as obtained by others. I have seen and examined this patient. I have discussed the case and the management of this patient's care with the Resident/Fellow, if applicable. I also have reviewed and agree with the assessment and plan as stated above and agree with all of its relevant components. Héctor Cruz MD [facility]05-[facility] Miscellaneous Notes* Telephone Encounter - Eve Lawson - 01/09/2024 10:11 AM EDT Images from the original note were not included. 11/22/23 FV: 02/13/24 Sandy Bhatti P [facility]ht [facility] (supporting Héctor Cruz MD)3 hours ago (7:06 AM) LM Good morning we were just checking to see if Sandy should continue eye drops on left eye till she sees you in February . Héctor Hubbard MD filed at 11/22/2023 1:56 PM Status: Signed Encounter Diagnosis ICD-10-CM 1. Status post corneal transplant Z94.7 OCT ANTERIOR SEGMENT CIRRUS OS (LEFT EYE) 2 week s/p DMEK requiring rebubbling on 11/16/23, still with incomplete attachment but mostly attached and some improvement in edema new epithelium defect , likely combination of medicamentosa + neurotrophic + bullae recommend decrease pred acetate 1% and cipro to BID discontinue ketorolac discontinue erythromycin follow-up 2 weeks next visit va iop ou ant seg oct os possible regraft if not improving I have confirmed and edited as necessary the relevant ophthalmic history, ROS, and the neuro exam findings as obtained by others. I have seen and examined this patient. I have discussed the case and the management of this patient's care with the Resident/Fellow, if applicable. I also have reviewed and agree with the assessment and plan as stated above and agree with all of its relevant components. Héctor Cruz MD documented in this encounterMiami [facility]05-07-2024 Telephone encounter Note * Telephone Encounter - Edie Samayoa LPN - 01/09/2024 8:24 AM EDT Left message on identified vm that Patient has a refill on Clonidine, Levothyroxine and Lisinopril,advised to check with [facility]. Edie Samayoa LPN [facility]05-07-[facility]24 Miscellaneous Notes* Telephone Encounter - Edie Samayoa LPN - 01/09/2024 8:24 AM EDT Left message on identified vm that Patient has a refill on Clonidine, Levothyroxine and Lisinopril,advised to check with [facility]. Edie Samayoa LPN documented in this encounterMiami [facility] Hospital05-06-2024 History of Present illness Narrative* Syeda Frost RN - 01/08/2024 4:43 PM EDT CDM Telephonic Outreach Provider Action/FYI CDM: CKD / ESRD Pt reports Mild edema in right arm, Fistula patent, received Hemodialysis today Pt denies redness, or discoloration, Right arm and hand are pink with movement Instructed to contact Dialysis Center, Surgeon for increased swelling, arm discoloration, pain, decreased sensation, or symptom concerns or condition changes. Pt verbalized understanding. Instructed to elevate and move arm, to increase circulation, can try warm compress, Pt verbalized understanding to all instructions Contacted for: Routine Telephonic Outreach Contact made with patient: Yes Patient identified by name and date of . Discussed care with patient Are you experiencing any new or worsening symptoms you need to talk about today? 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 Routed to: No Action Needed Syeda Frost RN January 08, 2024 4:45 PM documented in this encounterMiami [facility] Hospital05-06-2024 History of Present illness Narrative* Cony Desai MA - 01/08/2024 2:26 PM EDT [facility] Telephonic Outreach Provider Action/FYI Noted Thank you Contacted for: Syeda Frost RN January 08, 2024 2:26 PM * Cony Desai MA - 01/08/2024 2:12 PM EDT POPULATION HEALTH NAVIGATION OUTREACH Action/FYI Noted by [facility] Navigation Signature: Cony Desai MA January 10, 2024 2:59 PM POPULATION HEALTH NAVIGATION OUTREACH Action/FYI Message from Awilda states: Arm and hand swelling in access arm; Patient being referred to access surgeon to diagnose problem Reason for Outreach Medical Neighborhood: [facility] Patient identified by name and : No CVC in Place: No Likelihood of Hospitalization: 3 Patient Group: [facility] Provider Group (Patients with 4C or Regional Ops PCP) Patent Identified: Weekly Workflow (Da Aparna needs update within 7 days) Outreach Outcome: -- Unknown need Navigation Actions Taken: -- Route encounter to the PCC Routing reason: Unknown need to PCC Navigation Signature: Cony Desai MA January 08, 2024 2:12 PM documented in this encounterMiami [facility] Hospital04-12-2024 History of Present illness Narrative* Syeda Frost RN - 12/15/2023 2:24 PM EDT CDM Telephonic Outreach Provider Action/FYI CDM :CKD, ESRD Left a message to verify symptom status, instructed to contact PCP for condition changes and needs. Contacted for: Routine Telephonic Outreach Contact made with patient: No, left message. Syeda Frost RN December 15, 2023 2:25 PM * Syeda Frost RN - 12/12/2023 11:01 AM EDT CDM Telephonic Outreach Provider Action/FYI CDM :CKD, ESRD Left a message to verify symptom status, instructed to contact PCP for condition changes and needs. Contacted for: Routine Telephonic Outreach Contact made with patient: No, left message. Syeda Frost RN December 12, 2023 11:02 AM documented in this encounterMiami [facility] Hospital04-08-2024 History of Present illness Narrative* Syeda Frost RN - 12/11/2023 4:33 PM EDT [facility] Telephonic Outreach Provider Action/FYI Noted, Thank You Contacted for: Syeda Frost RN December 11, 2023 4:33 PM * Cony Desai MA - 12/11/2023 3:39 PM EDT POPULATION HEALTH NAVIGATION OUTREACH Action/FYI Noted by PCC Navigation Signature: Cony Desai MA December 15, 2023 7:11 AM POPULATION HEALTH NAVIGATION OUTREACH Action/FYI Message from Awilda states: Cataract surgery did not go smoothly and is experiencing ongoing issues Reason for Outreach Medical Neighborhood: [facility] Patient identified by name and : No CVC in Place: No Likelihood of Hospitalization: 2 Patient Group: [facility] Provider Group (Patients with 4C or Regional Ops PCP) Patent Identified: Weekly Workflow (Da Aparna needs update within 7 days) Outreach Outcome: -- Unknown need Navigation Actions Taken: -- Route encounter to the PCC Routing reason: Unknown need to PCC Navigation Signature: Cony Desai MA December 11, 2023 3:39 PM documented in this encounterMiami [facility] Hospital04-08-2024 Miscellaneous Notes* Telephone Encounter - Eve Lawson - 12/11/2023 4:22 PM EDT LV: 11/22/23 FV: 02/13/24 Patient's request for medication is as follows: Requested Prescriptions Pending Prescriptions Disp Refills ciprofloxacin HCl (CILOXAN) 0.3 % ophthalmic solution Sig: Use 1 Drop in the left eye four times daily. Prescription(s) as above. Please process accordingly. Héctor Bernard MD filed at 11/22/2023 1:56 PM Status: Signed Encounter Diagnosis ICD-10-CM 1. Status post corneal transplant Z94.7 OCT ANTERIOR SEGMENT CIRRUS OS (LEFT EYE) 2 week s/p DMEK requiring rebubbling on 11/16/23, still with incomplete attachment but mostly attached and some improvement in edema new epithelium defect , likely combination of medicamentosa + neurotrophic + bullae recommend decrease pred acetate 1% and cipro to BID discontinue ketorolac discontinue erythromycin follow-up 2 weeks next visit va iop ou ant seg oct os possible regraft if not improving I have confirmed and edited as necessary the relevant ophthalmic history, ROS, and the neuro exam findings as obtained by others. I have seen and examined this patient. I have discussed the case and the management of this patient's care with the Resident/Fellow, if applicable. I also have reviewed and agree with the assessment and plan as stated above and agree with all of its relevant components. Héctor Cruz MD documented in this encounterMiami [facility] Hospital04-04-2024 History of Present illness Narrative* Dave Pickett DO - 12/07/2023 9:58 AM EDT Images from the original note were not included. Referring Provider: Maldonado Raza MD Date: December 07, 2023 Chief Complaint: CARD New Patient Consult (ASCVD and Abnormal EKG. ) HISTORY OF PRESENT ILLNESS: Sandy Bhatti is a 58 year old female who presents for CARD New Patient Consult (ASCVD and AbnormalEKG. ). Patient had a stress test done this year that demonstrated no evidence of ischemia Patient echocardiogram demonstrates severe septal hypertrophy. A 40 mm gradient was noted across aortic outflow tract with Valsalva suggesting mild IHSS ALLERGIES Allergen Reactions Codeine GI Upset Latex Hives 2005 had reaction after surgery Penicillins Swelling Chlorhexidine Rash PAST MEDICAL HISTORY: PAST MEDICAL HISTORY Diagnosis Date Acute kidney failure (HCC) 01/14/2018 Anxiety Arterial steal syndrome ([facility]) 12/2018 Left AVF ASCVD (arteriosclerotic cardiovascular disease) 05/10/2012 Asymmetric septal hypertrophy (HCC) 07/25/2019 Calculus of ureter 06/12/2007 CKD (chronic kidney disease) stage V requiring chronic dialysis ([facility]) 03/01/2018 Dr. Pendleton, nephrology. Congestive heart failure (HCC) Constipation Depression 09/04/2006 Encounter for screening for stenosis of carotid artery 03/27/2023 Less then 50% calcification bilaterally. ESRD on dialysis ([facility]) 05/16/2019 GERD (gastroesophageal reflux disease) Hemorrhoids History [...] 09/04/2001 Hyperlipidemia 09/04/1999 Hypertrophic cardiomyopathy (HCC) 07/25/2019 Hypothyroid 03/30/2012 Proteinuria 06/14/2013 Renal colic 06/12/2007 Secondary hyperparathyroidism of renal origin ([facility]) 06/20/2023 Steal syndrome dialysis vascular access ([facility]) 05/17/2019 Thyroid disorder TIA (transient ischemic attack) 06/2019 Tubular adenoma of colon 11/15/2022 Type II or unspecified type diabetes mellitus without mention of complication, not stated as uncontrolled 09/04/1985 Ventral hernia with bowel obstruction 06/01/2023 VT (ventricular tachycardia) (HCC) 05/17/2019 History: Per patient, has history of excited rhythm. Sees a housing quality standard inspector in [place], last seen in January 2019. No concerns. She will continue to follow up with them. Assessment: Ventricular tachycardiaintermittently post-op with HR up to 110s. No chest pain or SOB. Troponins sent to monitor. Labs WNL. ECG completed showing BBB (has had on intermittent previous ECG). - 05/17/19 repeat ECG back to PAST SURGICAL HISTORY Procedure Laterality Date APPENDECTOMY 1992 AV ANASTOMIES OPEN;BY BASILIC VEIN WINN Right 04/20/2020 transpose basilic vein fistula, R arm AV FISTULA OR GRAFT VENOUS Left 10/04/2017 AV FISTULA OR GRAFT VENOUS Left 09/20/2018 redo, failure to mature AV FISTULA OR GRAFT VENOUS Right 04/21/2021 BOWEL RESECTION HX 2006 CHOLECYSTECTOMY 1985 Cholecystectomy COLONOSCOPY SCREENING 11/15/2022 COLOSTOMY/SKIN LEVEL CECOSTOMY 2006 [id number], reversed 2006 CREATION OF AVF, PERCUTANEOUS USING [...] PAST SURGICAL HISTORY OF Left 05/16/2019 LUE DRSOILA (proximal brachial to distal brachial artery bypass [...] lung cancer Coronary Artery Disease Brother dec. [place] 57 y.o. No Known Problems Maternal Grandmother No Known Problems Maternal Grandfather No Known Problems Paternal Grandmother No Known Problems Paternal Grandfather SOCIAL HISTORY: Tobacco Use: 1.5 packs/day, for 3 years. Quit 09/04/2005. Types: Cigarettes Alcohol Use: No Drug Use: No Employer And Job Title: No employer specified (Hom[employer]) Years Of Education Completed: Not specified Marital Status: with 1 child MEDICATIONS: Current Outpatient Medications Medication Sig erythromycin (ROMYCIN) 5 mg/gram (0.5 %) ophthalmic ointment Use 1 application in the left eye daily at bedtime. Apply 1/2 inch ribbon per application prednisoLONE acetate (PRED FORTE) 1 % ophthalmic suspension Use 1 Drop in the left eye four times daily. keTORolac (ACULAR) 0.5 % ophthalmic solution Use 1 Drop in the left eye four times daily. levothyroxine (SYNTHROID) 125 mcg tablet Take 1 tablet by mouth once daily. Take on empty stomach. For Thyroid amLODIPine (NORVASC) 5 mg tablet Take 1 tablet by mouth once daily. cloNIDine HCl (CATAPRES) 0.3 mg tablet Take 1 tablet by mouth daily at bedtime. atorvastatin (LIPITOR) 40 mg tablet Take 1 tablet by mouth daily at bedtime. lisinopril (ZESTRIL) 40 mg tablet Take 1 tablet by mouth once daily. SUMAtriptan (IMITREX) 50 mg tablet Take one tablet by mouth at onset of migraine. May repeat in 2 hours if ineffective metoprolol tartrate, short acting, (LOPRESSOR) 25 mg tablet Take 1 tablet by mouth every 12 hours. insulin lispro (HUMALOG KWIKPEN INSULIN) 100 unit/mL Inject 8 Units subcutaneously three times a day before meals. Add 1 unit for each 50 mg/dl above 150 insulin detemir U-100 (LEVEMIR FLEXTOUCH U-100 INSULIN) 100 unit/mL (3 mL) injection pen Inject 48 Units subcutaneously daily at bedtime. insulin needles, DISPOSABLE, (PEN NEEDLE) 31 gauge x 5/16 Use one needle per dose four times per day. ferric citrate 210 mg iron tab Take 1 tablet by mouth once daily. docusate sodium (COLACE) 100 mg capsule Take 1 capsule by mouth twice daily as needed for Constipation. nitroglycerin sublingual (NITROQUICK) 0.4 mg SL tablet Dissolve 0.4 mg under the tongue every 5 minutes as needed. NEPHRO-PETEY 0.8 mg tab Take 1 tablet by [...] the left eye four times daily. (Patient not taking: Reported on 12/07/2023) No current facility-administered medications for this visit. [...] Negative for confusion and hallucinations. Vitals: BP 132/56 (BP Site: Left Arm, BP Position: Sitting, BP Cuff Size: Regular Adult) Pulse 70 Ht 160 cm (5' 3) Wt 67.6 kg (149 lb) BMI 26.39 kg/m PHYSICAL EXAMINATION: BP 132/56 (BP Site: Left Arm, BP Position: Sitting, BP Cuff Size: Regular Adult) Pulse 70 Ht 160 cm (5' 3) Wt 67.6 kg (149 lb) BMI 26.39 kg/m Last 3 Encounter BP Readings: Date: BP: 11/09/2023 130/61 10/26/2023 154/67 09/14/2023 146/71[BP AC AVERAGE[ Last 3 Encounter Pulse Readings: Date: Pulse: 11/09/2023 68 10/26/2023 71 09/14/2023 110 Last 3 Encounter Wt Readings: Date: Wt: 10/26/2023 67.6 kg (149 lb) 09/14/2023 68.8 kg (151 lb 11.2 oz) 06/29/2023 68.4 kg (150 lb 14.4 oz) Physical Exam Vitals reviewed. Constitutional: General: She is not in acute distress. Cardiovascular: Rate and Rhythm: Normal rate and [...] is normal. Breath sounds: Normal breath sounds. Abdominal: General: Abdomen is flat. Bowel sounds are normal. Palpations: Abdomen is soft. Tenderness: There is no abdominal tenderness. Musculoskeletal: Right lower leg: No edema. Left lower leg: No edema. Skin: General: Skin is warm. Findings: No rash or wound. Neurological: Mental Status: She is alert and oriented to person, place, and time. Coordination: Coordination is intact. LABS: Glucose (mg/dL) Date Value 07/18/2023 236 04/23/2021 308 04/23/2021 304 Potassium (mmol/L) Date Value 07/18/2023 4.9 04/23/2021 4.4 04/23/2021 4.3 Sodium (mmol/L) Date Value 07/18/2023 140 04/23/2021 137 04/23/2021 136 Chloride (mmol/L) Date Value 07/18/2023 99 04/23/2021 96 04/23/2021 95 CO2 (mmol/L) Date Value 07/18/2023 30 04/23/2021 27 04/23/2021 28 Creatinine (mg/dL) Date Value 07/18/2023 5.68 04/23/2021 4.67 04/23/2021 4.59 BUN (mg/dL) Date Value 07/18/2023 31 04/23/2021 22 04/23/2021 22 Anion Gap (mmol/L) Date Value 07/18/2023 11 04/23/2021 14 04/23/2021 13 Calcium (mg/dL) Date Value 04/23/2021 8.9 04/23/2021 8.7 Calcium, Total (mg/dL) Date Value 07/18/2023 9.6 Protein, Total (g/dL) Date Value 02/23/2023 6.4 11/12/2019 7.3 Albumin (g/dL) Date Value 02/23/2023 4.3 02/09/2021 4.2 Bilirubin, Total (mg/dL) Date Value 02/23/2023 0.3 11/12/2019 0.3 Alkaline Phosphatase (U/L) Date Value 02/23/2023 426 11/12/2019 254 AST (U/L) Date Value 02/23/2023 94 11/12/2019 40 ALT (U/L) Date Value 02/23/2023 105 11/12/2019 23 Hemoglobin (g/dL) Date Value 06/21/2023 11.2 04/23/2021 8.6 Hematocrit (%) Date Value 06/21/2023 36.6 04/23/2021 26.8 WBC (k/uL) Date Value 06/21/2023 7.11 04/23/2021 6.82 Cholesterol, Total (mg/dL) Date Value 03/30/2021 133 Total Cholesterol, Nonfasting (mg/dL) Date Value 02/23/2023 113 HDL Cholesterol (mg/dL) Date Value 03/30/2021 55 HDL Cholesterol, Nonfasting (mg/dL) Date Value 02/23/2023 58 LDL Cholesterol (mg/dL) Date Value 03/30/2021 57 LDL Cholesterol, Nonfasting (mg/dL) Date Value 02/23/2023 44 Triglyceride (mg/dL) Date Value 03/30/2021 105 Triglycerides, Nonfasting (mg/dL) Date Value 02/23/2023 56 EKG: ASSESSMENT/PLAN: 1. Abnormal EKG - ICD9: 794.31, ICD10: R94.31 (primary diagnosis) Patient is here in the office for abnormal EKG. Abnormalities of the EKG was explained to patient during office visit. - ECG COMPLETE the EKG today was abnormal. I was able to look at the prior EKG and compared to today's EKG looking for changes. In the pictorial format we went over the EKG demonstrating the intervals and timing of the intervals. We also described the complexes shape and format. Right bundle branchblock and left ventricular hypertrophy 2. ASCVD (arteriosclerotic cardiovascular disease) - ICD9: 429.2, 440.9, ICD10: I25.10 Chronic condition of the patient. Condition was explained to patient during office visit. 3. Primary hypertension - ICD9: 401.9, ICD10: I10 Patient's blood pressure in the office today was recorded as 132/56. Target systolic BP 140 or lessand diastolic BP 90 or less. Continue current medications. 4. Mixed hyperlipidemia - ICD9: 272.2, ICD10: E78.2 Patient is currently taking Atorvastatin 40mg every day. Patients last BW was 02/23/2023 and the LDL was 44. - Counseled on healthy diet and regular exercise 5. Congestive heart failure, unspecified HF chronicity, unspecified heart failure type (HCC) - ICD9: 428.0, ICD10: I50.9 Patient on dialysis at this time. Fluid pain management through dialysis. Managed with medication therapy. 6. Controlled type 2 diabetes mellitus without complication, with long-term current use of insulin (HCC) - ICD9: 250.00, V58.67, ICD10: E11.9, Z79.4 Reviewed increased cardiovascular risk in patients with diabetes including stroke and heart attack,as well as blindness, kidney failure, and neuropathy. Recommend yearly eye exams, as well as routine labs to monitor kidney function. 7. Stage 5 chronic kidney disease on chronic dialysis (HCC) - ICD9: 585.6, V45.11, ICD10: N18.6, Z99.2 In pictorial form we norm a graph of kidney function. The importance of this graph is to highlight how diuretic therapy can affect the kidney function. The higher the number of the creatinine level the closer they get to kidney failure and possible dialysis. Every time we have to change the diuretic therapy, the kidney function will be altered. Therefore, a close follow-up with serial renal profiles is required. The patient has been asked to maintain this graph with labeling the separate lab results so they can follow the kidney function. 8. History of echocardiogram - ICD9: V15.89, ICD10: Z92.89 Done 11/07/2023 and showed EF 67%. Severe septal left ventricular hypertrophy. Grade I left ventricular diastolic dysfunction. 9. History of cardiovascular stress test - ICD9: V15.89, ICD10: Z92.89 Done 06/21/2023 and showed EF 67%. No ischemia. Normal scan 11. History of carotid artery stenosis - ICD9: V12.59, ICD10: Z86.79 Done 03/27/2023 and showed Less then 50% calcification bilaterally. 12. Former smoker - ICD9: V15.82, ICD10: Z87.891 Patient is a former smoker. Patient quit smoking in 2005. I, Abby Isbell MA , scribing for Dr. Dave Pickett, was present in the room during the examination Follow up in: 6 months with Mandie Younger APRN.CNP for ASCVD. Prior to entering the room, I reviewed the last progress note including the diagnosis and plan of action. When available, I then reviewed the last heart catheterization, stress test, echocardiogram and EKG. I proceeded to review the medial therapy and any side effects the patient may have had in the past. I was able to look at the last several EKGs. A new EKG was performed today and an interetation was performed. I reviewed its interpretation with the family and compared it to the previous EKGsthat we have in the medical records. Changes were described to the patient. In a pictorial format; I described the MD and QRS intervals. This was to show the effects of antiarrhythmic therapy on the e lectrical system. I was able to look at the past several EKG's. A new EKG was performed today and interpretation was noted. I reviewed this interpretation with the patient, and the family when available, and compared it to the previous EKG's that we have in the medical record. Since my office visit was carried out with a scribe, while in the exam room I was able to devote one hundred percent of my time in [id number] conversation with the patient. I answered all the questions and explained the diagnosis of hypertension chronic kidney disease atherosclerosis 40mm gradient across the aortic outflow tract with Valsalva suggesting mild IHSS. Will get an echocardiogram in 2018 2023 this remains unchanged. Greater that 51% of my time was spent with [id number] conversation with the patient. I have discussed the recommended treatment, alternative therapies and other options in detail. I've discussed the best benefit and side effects of these recommended treatments. I've attempted to answer all the questions to the patient's satisfaction and understanding. With approval, we would recommend an pursuethe current therapy such as no change in medical therapy. After leaving the exam room, I went back into the patient's chart and coordinated care with my nurse ordering the proper testing and medicinal changes. Letter was performed with voice recognition algorithms and sent to the referring team. The chart was completed. Including the pre-exam, exam and post- exam, the total time spent in the patient's management was greater than 15 minutes I, Dr. Dave Pickett, have reviewed and agree with the information in the medical record. Dave Pickett DO [facility] History of Present illness Narrative* Héctor Cruz MD - 11/22/2023 1:49 PM EDT Encounter Diagnosis ICD-10-CM 1. Status post corneal transplant Z94.7 OCT ANTERIOR SEGMENT CIRRUS OS (LEFT EYE) 2 week s/p DMEK requiring rebubbling on 11/16/23, still with incomplete attachment but mostly attached and some improvement in edema new epithelium defect , likely combination of medicamentosa + neurotrophic + bullae recommend decrease pred acetate 1% and cipro to BID discontinue ketorolac discontinue erythromycin follow-up 2 weeks next visit [facility] iop ou ant seg oct os possible regraft if not improving I have confirmed and edited as necessary the relevant ophthalmic history, ROS, and the neuro exam findings as obtained by others. I have seen and examined this patient. I have discussed the case and the management of this patient's care with the Resident/Fellow, if applicable. I also have reviewed and agree with the assessment and plan as stated above and agree with all of its relevant components. Héctor Cruz MD documented [facility] this encounter[facility]03-20-[facility]24 Instructions* Patient Instructions* Héctor Cruz MD - 11/22/2023 1:46 PM EDT INSTRUCTIONS UNTIL NEXT VISIT: CONTINUE PREDNISOLONE BUT DECREASE TO TWO TIMES DAILY CONTINUE CIPROFLOXACIN BUT DECREASE TO TWO TIMES DAILY STOP KETOROLAC STOP ERYTHROMYCIN documented in this encounter[facility]03-19-[facility]24 Miscellaneous Notes* Telephone Encounter - Eve Lawson - 11/21/2023 12:15 PM EDT Patient scheduled. * Telephone Encounter - Héctor Cruz MD - 11/21/2023 11:55 AM EDT yes please put in the notes, [facility] IOP OU + ant seg OCT OS page anthony after work-up * Telephone Encounter - Eve Lawson - 11/21/2023 11:32 AM EDT Patient has dialysis tomorrow and should be out between 9:30 and 10:00 she will come after that andshould be here by 12:15 and no later than 12:30. Does that work for you? * Telephone Encounter - Héctor Cruz MD - 11/21/2023 10:28 AM EDT can she come in tomorrow? I can see through SDA between 8am-12:30pm. * Telephone Encounter - Eve Lawson - 11/21/2023 8:27 AM EDT LV: 11/16/23 FV: 02/13/24 Patient can't make today's appointment and would like to reschedule. Héctor Cruz MD filed at 11/16/2023 2:26 PM Status: Signed (Z94.7) Cornea replaced by transplant (primary encounter diagnosis) Comment: 1 week s/p DMEK OS (11/09/2023) for pseudophakic bullous keratopathy - Graft detached centrally and nasally. Bubble remains superiorly Plan: -Re-bubble at slit lamp today - Position supine Q2H on/off for the next 24 hrs - NO FACE DOWN POSITIONING x 3 DAYS - PREDNISOLONE ACETATE 1% QID operative eye - CIPROFLOXACIN 0.3% QID operative eye - KETOROLAC 0.5% QID operative eye - ERYTHROMYCIN OINTMENT QHS operative eye - Routine precautions discussed - Shield at bedtime - No eye rubbing - No strenuous activity - Call DESTIN if new signs/symptoms/pain/vision loss Randell Reeves MD Ophthalmology PGY 2 agree as per above rba discussed, patient elects proceed with rebubble at completed without incident follow-up next week destin if worse I have confirmed and edited as necessary the relevant ophthalmic history, ROS, and the neuro exam findings as obtained by others. I have seen and examined this patient. I have discussed the case and the management of this patient's care with the Resident/Fellow, if applicable. I also have reviewed and agree with the assessment and plan as stated above and agree with all of its relevant components. Héctor Cruz MD documented [facility] encounter[facility]03[facility] History of Present illness Narrative* Héctor Cruz MD - 11/16/2023 1:33 PM EDT (Z94.7) Cornea replaced by transplant (primary encounter diagnosis) Comment: 1 week s/p DMEK OS (11/09/2023) for pseudophakic bullous keratopathy - Graft detached centrally and nasally. Bubble remains superiorly Plan: -Re-bubble at slit lamp today - Position supine Q2H on/off for the next 24 hrs - NO FACE DOWN POSITIONING x 3 DAYS - PREDNISOLONE ACETATE 1% QID operative eye - CIPROFLOXACIN 0.3% QID operative eye - KETOROLAC 0.5% QID operative eye - ERYTHROMYCIN OINTMENT QHS operative eye - Routine precautions discussed - Shield at bedtime - No eye rubbing - No strenuous activity - Call DESTIN if new signs/symptoms/pain/vision loss Randell Reeves MD Ophthalmology PGY 2 agree as per above rba discussed, patient elects proceed with rebubble at completed without incident follow-up next week destin if worse I have confirmed and edited as necessary the relevant ophthalmic history, ROS, and the neuro exam findings as obtained by others. I have seen and examined this patient. I have discussed the case and the management of this patient's care with the Resident/Fellow, if applicable. I also have reviewed and agree with the assessment and plan as stated above and agree with all of its relevant components. Héctor Cruz MD documented in this encounter[facility]03-08-2024 Miscellaneous Notes* Telephone Encounter - Eve Lawson - 11/10/2023 3:12 PM EST Relayed message no further questions. * Telephone Encounter - Héctor Cruz MD - 11/10/2023 3:07 PM EST Yes, tearing would be expected at this point. * Telephone Encounter - Eve Lawson - 11/10/2023 2:05 PM EST LV: 11/09/23 - Surgery FV: 11/16/23 Patient reports tearing, vision is the same no eye pain. Is this normal? Please advise. Héctor Cruz MD filed at 06/30/2023 12:48 PM Status: Addendum Encounter Diagnosis ICD-10-CM 1. Idiopathic corneal edema, bilateral H18.223 CORNEAL TOPOGRAPHY PENTACAM OU (BOTH EYES) ECC/CONFOCAL MICROSCOPY OU (BOTH EYES) 2. Controlled type 2 diabetes mellitus without complication, with long-term current use of insulin (HCC) E11.9 CORNEAL TOPOGRAPHY PENTACAM OU (BOTH EYES) Z79.4 OCT [place] CIRRUS OU (BOTH EYES) 3. Pseudophakia Z96.1 4. PCO (posterior capsular opacification), left H26.492 5. Senile nuclear cataract, right H25.11 New patient Last exam with [facility] ~02/2023 Descemet's Folds, OU (OS>OD) Highly irregular Pentacam OU Pseudophakia, OS S/p CEIOL 02/2023 ([facility]) Patient states vision has been blurry since about 4 days after surgery Cataract, OD Visually significant Waiting to undergo CEIOL until blurry vision OS improves Type 2 Diabetes without Retinopathy Insulin dependent No NVI, NVD, NVE appreciated (though challenging peripheral exam) Hemoglobin A1C (%) Date Value 02/23/2023 6.9 03/30/2021 6.2 Glaucoma? No known family history Patient was told she has glaucoma Not currently on drops, never had any glaucoma surgeries Was on brimonidine post- cataract surgery 02/2023 but since tapered off IOP 07/13 today Pallorous disc, OS > OD: unclear what effect glaucoma may have on baseline [facility] OS Cole Chu MD Ophthalmology Resident, PGY-2 cornea consult requested s/p PCIOL OS, uncomplicated by patient history but vision got worse 3-4 days after surgery fairly dense PCO OS but would not explain time course of vision decline after surgery and endothelial layer still appears abnormal OS regardless -Confocal microscopy with nondiscernible endothelial layer left eye, appears to be normal mosaic right eye ? Possible pseudophakic bullous keratopathy left eye-corneal thickness is still minimally differentfrom right eye but there does appear to be central edema Unclear reason for high against the rule cylinder on pentacam-? Testing artifact versus possible component of central scar (mild subepithelial haze, possibly could have been sterile ulcer/epi defect after surgery but does not look severe enough to explain topographic changes) consider proceed with DMEK OS Will request records from postoperative period from treating physician Unclear vision potential left eye, possible posterior segment limitation (?vascular) but no obviousresidual manifestations Cannot assess for APD today as has already been dilated Reviewed records from Dr. Day Best postoperative vision left eye was 20/100, there was concern for possible ocular ischemic syndrome but no obvious positive findings Still agree with option to proceed with DMEK but unclear visual prognosis as there is likely significant diabetic ischemic damage Recommend avoid elevated intraocular pressure during surgery to minimize any induced vascular compromise I have confirmed and edited as necessary the relevant ophthalmic history, ROS, and the neuro exam findings as obtained by others. I have seen and examined this patient. I have discussed the case and the management of this patient's care with the Resident/Fellow, if applicable. I also have reviewed and agree with the assessment and plan as stated above and agree with all of its relevant components. Héctor Cruz MD documented in this encounterMi[facility]03-06-[facility]24 History of Present illness Narrative* Syeda Frost RN - 11/08/2023 2:18 PM EST CDM Telephonic Outreach Provider Action/FYI CDM: CKD ESRD Pt denies symptom changes or needs, BP 125/69 taken at Dialysis Mon, Mon, Monday11/07/23 Completed Echo Goals, SDH Food, Transportation updated Contacted for: Routine Telephonic Outreach Contact made with patient: Yes Patient identified by name and date of . Discussed care with patient Are you experiencing any new or worsening symptoms you need to talk about today? No Disease Specific Do you check your blood pressure at home? Yes, Enter readings: 125/69 Taken at Dialysis Do you have new or worsening shortness of breath with activity? No Do you feel like you are dehydrated for any reason, including not being able to eat or drink normally, or having less urine/much darker urine than normal for you? No Do you check your daily weight at home? Yes, Have you noticed a sudden gain in weight greater than three pounds in a day or three pounds in a week? 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 Routed to: No Action Needed JEANNETTE Education Provided this Outreach: No Syeda Frost RN November 08, 2023 2:29 PM documented in this encounterMi[facility]02-22-2024 History of Present illness Narrative* Marnie Zamora RT(R) - 10/26/2023 2:00 PM EST Radiology Service Progress Note PATIENT NAME: Sandy Bhatti DATE OF SERVICE: October 26, 2023 TIME: 1:56 PM PATIENT IDENTITY VERIFICATION COMPLETED USING TWO (2) IDENTIFIERS: Name and Date of confirmedby patient verbally. FALL SCREENING: Has the patient had 2 falls in the last year or 1 fall with injury or currently using an Ambulatory Assistive Device (Walker, Cane, Wheelchair, Crutches, etc.)? No PATIENT GENDER DATA: Female. status: : No status: NO. PATIENT RELEVANT IMPLANT DATA REVIEWED: Yes PATIENT PRESENTS WITH AN IMPLANTABLE OR ATTACHED TRADE EMBALMER: No RADIOLOGY DEPARTMENT: General X-ray: Exam(s) Completed: Chest X-Ray PERIPHERAL IV DATA: Not applicable SIGNED BY: RT Robert(R) October 26, 2023 1:56 PM documented in this encounterMi[facility]02-22-2024 History of Present illness Narrative* Maldonado Raza MD - 10/26/2023 1:25 PM EST This note was created using Tripvistoriter. Subjective Consultation requested by Dr. Héctor Cruz for an opinion regarding preoperative examination. . Myfinal recommendations will be communicated back to the requesting physician by way of shared Medical record. Sandy Bhatti is a 58 year old female scheduled for keratoplasty of the left eye November 09, 2023. This is a previously planned surgery rescheduled. She denied any change in her condition since preoperative examination last month. She was doing reasonably well, undergoing dialysis. Her blood pressure was chronically labile, and better since we added metoprolol. Blood pressure was usually elevated prior to dialysis, and low after dialysis. She had a negative stress test 2022. She was taking all her medications as listed. Diabetes was controlled. Review of Systems Constitutional: Negative for chills, fever and unexpected weight change. HENT: Negative for congestion and sore throat. Eyes: Negative for pain and discharge. Respiratory: Negative for cough, shortness of breath and wheezing. Cardiovascular: Negative for chest pain, palpitations and leg swelling. Gastrointestinal: Negative for abdominal pain, diarrhea, nausea and vomiting. Genitourinary: Negative for difficulty urinating and dysuria. Neurological: Negative for dizziness and headaches. Hematological: Does not bruise/bleed easily. PAST MEDICAL HISTORY Diagnosis Date Acute kidney failure (HCC) 01/14/2018 Anxiety Arterial steal syndrome (HCC) 12/2018 Left AVF ASCVD (arteriosclerotic cardiovascular disease) 05/10/2012 Asymmetric septal hypertrophy (HCC) 07/25/2019 Calculus of ureter 06/12/2007 Carotid disease, bilateral (HCC) 03/27/2023 CKD (chronic kidney disease) stage V requiring chronic dialysis ([facility]) 03/01/2018 Dr. Pendleton, nephrology. Congestive heart failure ([facility]) Constipation Depression 09/04/2006 ESRD on dialysis ([facility]) 05/16/2019 GERD (gastroesophageal reflux disease) Hemorrhoids HTN (hypertension) 09/04/2001 Hyperlipidemia 09/04/1999 Hypertrophic cardiomyopathy (HCC) 07/25/2019 Hypothyroid 03/30/2012 Proteinuria 06/14/2013 Renal colic 06/12/2007 Secondary hyperparathyroidism of renal origin ([facility]) 06/20/2023 Steal syndrome dialysis vascular access ([facility]) 05/17/2019 Thyroid disorder TIA (transient ischemic attack) 06/2019 Tubular adenoma of colon 11/15/2022 Type II or unspecified type diabetes mellitus without mention of complication, not stated as uncontrolled 09/04/1985 Ventral hernia with bowel obstruction 06/01/2023 VT (ventricular tachycardia) ([facility]) 05/17/2019 History: Per patient, has history of excited rhythm. Sees a housing quality standard inspector in [place], last seen in January 2019. No concerns. She will continue to follow up with them. Assessment: Ventricular tachycardiaintermittently post-op with HR up to 110s. No chest pain or SOB. Troponins sent to monitor. Labs WNL. ECG completed showing BBB (has had on intermittent previous ECG). - 05/17/19 repeat ECG back to PAST SURGICAL HISTORY Procedure Laterality Date APPENDECTOMY 1992 AV ANASTOMIES OPEN;BY BASILIC VEIN WINN Right 04/20/2020 transpose basilic vein fistula, R arm AV FISTULA OR GRAFT VENOUS Left 10/04/2017 AV FISTULA OR GRAFT VENOUS Left 09/20/2018 redo, failure to mature AV FISTULA OR GRAFT VENOUS Right 04/21/2021 BOWEL RESECTION HX 2006 CHOLECYSTECTOMY 1985 Cholecystectomy COLONOSCOPY SCREENING 11/15/2022 COLOSTOMY/SKIN LEVEL CECOSTOMY 2007 [id number], reversed 2007 CREATION OF AVF, PERCUTANEOUS USING MAGNETIC-GUIDED ARTERIAL AND VENOUS CATHETERS AND RADIOFREQUENCY ENERGY Right 11/14/2019 RIGHT AVF stage I EXPLORATORY LAPAROTOMY CELIOTOMY W/WO BIOPSY SPX 2006 Laparotomy, exp EXPLORATORY LAPAROTOMY, CELIOTOMY-SP 05/31/2023 lysis of adhesions, small bowel enterotomy repair. IR VENOUS FISTULAGRAM Left 01/22/2019 Left SC balloon PAST SURGICAL HISTORY OF Left 05/16/2019 LUE DRIL (proximal brachial to distal brachial artery bypass with RLE rGSV PAST SURGICAL HISTORY OF Left Cataract removed REDUCTION OF LARGE BREAST 1989 SALPINGECTOMY OR OOPHERECTOMY-ECTOPIC 1986 SLING OPER STRES INCONTINENCE 1998 TOTAL ABDOMINAL HYSTERECT W/WO RMVL TUBE OVARY 1990 Hysterectomy, RUSSELL Social History Tobacco Use Smoking status: Former Packs/day: 1.50 Years: 3.00 Additional pack years: 0.00 Total pack years: 4.50 Types: Cigarettes Quit date: 09/04/2005 Years since quittin.1 Smokeless tobacco: Never Tobacco comments: quit march 10 Vaping Use Vaping Use: Never used Substance Use Topics Alcohol use: No Drug use: No ALLERGIES Allergen Reactions Codeine GI Upset Latex Hives 2006 had reaction after surgery Penicillins Swelling Chlorhexidine Rash Current Outpatient Medications Medication Sig metoprolol tartrate, short acting, (LOPRESSOR) 25 mg tablet Take 1 tablet by mouth every 12 hours. insulin lispro (HUMALOG KWIKPEN INSULIN) 100 unit/mL Inject 8 Units subcutaneously three times a day before meals. Add 1 unit for each 50 mg/dl above 150 insulin detemir U-100 (LEVEMIR FLEXTOUCH U-100 INSULIN) 100 unit/mL (3 mL) injection pen Inject 48 Units subcutaneously daily at bedtime. insulin needles, DISPOSABLE, (PEN NEEDLE) 31 gauge x 5/16 Use one needle per dose four times per day. ferric citrate 210 mg iron tab Take 1 tablet by mouth once daily. docusate sodium (COLACE) 100 mg capsule Take 1 capsule by mouth twice daily as needed for Constipation. nitroglycerin sublingual (NITROQUICK) 0.4 mg SL tablet Dissolve 0.4 mg under the tongue every 5 minutes as needed. NEPHRO-PETEY 0.8 mg tab Take 1 tablet by [...] Take 1 tablet by mouth once daily. levothyroxine (SYNTHROID) 125 mcg tablet Take 1 tablet by mouth once daily. Take on empty stomach. For Thyroid amLODIPine (NORVASC) 5 mg tablet Take 1 tablet by mouth once daily. cloNIDine HCl (CATAPRES) 0.3 mg tablet Take 1 tablet by mouth daily at bedtime. atorvastatin (LIPITOR) 40 mg tablet Take 1 tablet by mouth daily at bedtime. lisinopril (ZESTRIL) 40 mg tablet Take 1 tablet by mouth once daily. SUMAtriptan (IMITREX) 50 mg tablet Take one tablet by mouth at onset of migraine. May repeat in 2 hours if ineffective No current facility-administered medications for this visit. Objective BP 154/67 (BP Site: Left Arm, BP Position: Sitting, BP Cuff Size: Large Adult) Pulse 71 Temp 36.6 C (97.9 F) (Temporal) Ht 159 cm (5' 2.6) Wt 67.6 kg (149 lb) BMI 26.73 kg/m Physical Exam Constitutional: General: She is not in acute distress. Appearance: She is not ill-appearing. HENT: Head: Normocephalic. Eyes: General: No scleral icterus. Conjunctiva/sclera: Conjunctivae normal. Neck: Vascular: No carotid bruit. Cardiovascular: Rate and Rhythm: Normal rate and regular rhythm. Heart sounds: S1 normal and S2 normal. Murmur heard. Decrescendo systolic murmur is present with a grade of 1/6. No friction rub. Pulmonary: Effort: No respiratory distress. Breath sounds: Examination of the right-lower field reveals decreased breath sounds. Examination ofthe left-lower field reveals decreased breath sounds. Decreased breath sounds present. No wheezing,rhonchi or rales. Abdominal: Tenderness: There is no abdominal tenderness. Musculoskeletal: Right hand: Swelling present. Cervical back: Neck supple. Right lower leg: No edema. Left lower leg: No edema. Lymphadenopathy: Cervical: No cervical adenopathy. Neurological: General: No focal deficit present. Mental Status: She is alert. Gait: Gait normal. Feet:Shoes and socks removed, No deformities, ulcers, calluses, abnormal pulses Decreased bilaterally, and sensitive to 10 gm monofilament. Nails deformed, hypertrophic, untrimmed. Chest xray IMPRESSION: Stable exam without acute findings. EKG from 09/14/2023. Assessment and Plan 1. Preoperative examination - ICD9: V72.84, ICD10: Z01.818 (primary diagnosis) - Per NSQIP Surgical Risk Calculator patient below average risk for UTI and VTE, and average or above average risk for all other outcomes. - Patient is optimized for surgery. 2. Hypothyroidism, unspecified type - ICD9: 244.9, ICD10: E03.9 Refilled. - LEVOTHYROXINE 125 MCG TABLET 3. Primary hypertension - ICD9: 401.9, ICD10: I10 Stable. - AMLODIPINE 5 MG TABLET - CLONIDINE HCL 0.3 MG TABLET - LISINOPRIL 40 MG TABLET 4. Other hyperlipidemia - ICD9: 272.4, ICD10: E78.49 - ATORVASTATIN 40 MG TABLET 5. ESRD (end stage renal disease) (HCC) - ICD9: 585.6, ICD10: N18.6 - Continue dialysis. 6. ASCVD (arteriosclerotic cardiovascular disease) - ICD9: 429.2, 440.9, ICD10: I25.10 Stable. - Cardiology consult scheduled. 7. Controlled type 2 diabetes mellitus without complication, with long-term current use of insulin (HCC) - ICD9: 250.00, V58.67, ICD10: E11.9, Z79.4 - Controlled 8. History of CHF (congestive heart failure) - ICD9: V12.59, ICD10: Z86.79 - Clinically compensated. - XR CHEST 2V FRONTAL/LAT 9. Heart murmur, systolic - ICD9: 785.2, ICD10: R01.1 Patient does not recall last echocardiogram. Outpatient follow up recommended from June. Hypertrophic cardiomyopathy history. - ECHO - PERFLUTREN LIPID MICROSPHERES 1.1 MG/ML INJECTION IN NS 10 ML - SODIUM CHLORIDE 0.9 % (FLUSH) INJECTION SYRINGE 10. Idiopathic corneal edema of both eyes - ICD9: 371.21, ICD10: H18.223 For surgery 11/08/22. Maldonado Raza MD documented [facility] Miscellaneous Notes* Telephone Encounter - Pranav Domínguez - 10/13/2023 3:00 PM ESTSummary: Voicemail left for surgery I attempted to contact the patient to reschedule her previous surgery. I left a detailed message with the tentative date of 11/09/2023. My contact information and a [employer] message was sent as well. documented in this encounterMi[facility]02-[facility]24 History of Present illness Narrative* Syeda Frost RN - 10/06/2023 4:26 PM EST CDM Telephonic Outreach Provider Action/FYI CDM: ESRD on dialysis Pt denies symptom changes, concerns or needs ADL's, Falls, Goals updated: Pt's Goal: To get a new Kidney, Pt has one more test to complete to determine if she is eligible for a transplant.. Contacted for: Routine Telephonic Outreach Contact made with patient: Yes Patient identified by name and date of . Discussed care with patient Are you experiencing any new or worsening symptoms you need to talk about today? No Disease Specific Do you check your blood pressure at home? Yes, Enter readings: At Dialysis Do you have new or worsening shortness of breath with activity? No Do you feel like you are dehydrated for any reason, including not being able to eat or drink normally, or having less urine/much darker urine than normal for you? No Do you check your daily weight at home? Yes, Have you noticed a sudden gain in weight greater than three pounds in a day or three pounds in a week? 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 Routed to: No Action Needed JEANNETTE Education Provided this Outreach: Syeda Frost RN October 06, 2023 4:27 PM * Syeda Frost RN - 10/05/2023 1:44 PM EST CDM Telephonic Outreach Provider Action/FYI CDM: CKD, ESRD on Dialysis Left a message to verify symptom status and needs. Instructed to call PCP with any symptom or condition changes. Contacted for: Routine Telephonic Outreach Contact made with patient: No, left message. Syeda Frost RN October 05, 2023 1:44 PM documented in [facility]Mi[facility]11-27-[facility]23 History of Present illness Narrative* Syeda Frost RN - 07/31/2023 8:51 AM EST CDM Telephonic Outreach Provider Action/FYI CDM: CKD Pt denies symptom changes, concerns, or needs Pt completed dialysis today, Right arm Fistula is patent, Pt denies pain, bleeding. Pt is adhering to 32-34 oz fluid restrictions Contacted for: Routine Telephonic Outreach Contact made with patient: Yes Patient identified by name and date of . Discussed care with patient Are you experiencing any new or worsening symptoms you need to talk about today? No Disease Specific Do you check your blood pressure at home? Yes, Enter readings: Taken at Dialysis Do you have new or worsening shortness of breath with activity? No Do you feel like you are dehydrated for any reason, including not being able to eat or drink normally, or having less urine/much darker urine than normal for you? No Do you check your daily weight at home? Yes, Have you noticed a sudden gain in weight greater than three pounds in a day or three pounds in a week? 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 Routed to: No Action Needed JEANNETTE Education Provided this Outreach: No Syeda Frost RN July 31, 2023 10:11 AM * Syeda Frost RN - 07/28/2023 3:06 PM EST CDM Telephonic Outreach Provider Action/FYI CDM: CKD ESRD Left a message to verify symptom status, instructed to contact PCP for condition changes and needs. Contacted for: Routine Telephonic Outreach Contact made with patient: No, left message. 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 May take Blood pressure and heart medications in the morning with small sip of water. documented in this encounterMi[facility]10-30-2023 Miscellaneous Notes* Telephone Encounter - Cony Larson - 07/03/2023 10:43 AM EDT Pt has a cold- rescheduled to 07/18. documented [facility]10-26-[facility]23 History of Present illness Narrative* Maldonado Raza MD - 06/29/2023 1:53 PM EDT This note was created using NoteWriter. Subjective Transitional Care Management Progress Note The patients TCM visit was performed within the 14 days of discharge. Patient's Date of discharge: 06/21/2023 Date of initial coordinator contact after discharge: 06/22/2023 Discharge diagnosis: abnormal EKG, hyperkalemia. Medication review completed Yes Provider Documentation: In follow-up of hospitalization, Sandy Bhatti is a 58 year old female with the chief complaint of transition of care. I have reviewed the patient s last hospital course including diagnostic testing performed during this hospitalization, their discharge medications, and my assessment and plan with the patient and anyfamily members present at today s visit. Sandy was to undergo an elective fistulogram when pre procedural EKG showed significant abnormality, and she was admitted to rule out ACS. EKG abnormality was due to hyperkalemia which was corrected.Stress test was done and was low risk. Metoprolol was started. A few weeks prior, she was admitted locally for ventral hernia with small bowel obstruction. Laparotomy was done with repair of enterotomy from significant adhesiolysis. Mesh could not be placed. Review of Systems Constitutional: Negative for appetite change, fever and unexpected weight change. Respiratory: Negative for cough and shortness of breath. Cardiovascular: Negative for chest pain, palpitations and leg swelling. Gastrointestinal: Negative for abdominal distention, abdominal pain, diarrhea, nausea and vomiting. Genitourinary: Negative for difficulty urinating. ACTIVE PROBLEM LIST Controlled Type 2 Diabetes Mellitus Without Complication, With Long-Term Current Use of Insulin ([facility]) Htn (Hypertension) Hyperlipidemia Hypothyroid Ascvd (Arteriosclerotic Cardiovascular Disease) Proteinuria Esrd On Dialysis (Hcc) VT (ventricular tachycardia) Tubular Adenoma of Colon Hyperkalemia Secondary Hyperparathyroidism of Renal Origin ([facility]) Abnormal Ekg Current Outpatient Medications Medication Sig metoprolol tartrate, short acting, (LOPRESSOR) 25 mg tablet Take 1 tablet by mouth every 12 hours. insulin lispro (HUMALOG KWIKPEN INSULIN) 100 unit/mL Inject 8 Units subcutaneously three times a day before meals. Add 1 unit for each 50 mg/dl above 150 insulin detemir U-100 (LEVEMIR FLEXTOUCH U-100 INSULIN) 100 unit/mL (3 mL) injection pen Inject 48 Units subcutaneously daily at bedtime. amLODIPine (NORVASC) 5 mg tablet Take 1 tablet by mouth once daily. cloNIDine HCl (CATAPRES) 0.3 mg tablet Take 1 tablet by mouth daily at bedtime. atorvastatin (LIPITOR) 40 mg tablet Take 1 tablet by mouth daily at bedtime. lisinopril (ZESTRIL) 40 mg tablet Take 1 tablet by mouth once daily. insulin needles, DISPOSABLE, (PEN NEEDLE) 31 gauge x 5/16 Use one needle per dose four times per day. SUMAtriptan (IMITREX) 50 mg tablet Take one tablet by mouth at onset of migraine. May repeat in 2 hours if ineffective ferric citrate 210 mg iron tab Take 1 tablet by mouth once daily. docusate sodium (COLACE) 100 mg capsule Take 1 capsule by mouth twice daily as needed for Constipation. nitroglycerin sublingual (NITROQUICK) 0.4 mg SL tablet Dissolve 0.4 mg under the tongue every 5 minutes as needed. NEPHRO-PETEY 0.8 mg tab Take 1 tablet by [...] Take 1 tablet by mouth once daily. levothyroxine (SYNTHROID) 125 mcg tablet Take 1 tablet by mouth once daily. Take on empty stomach. For Thyroid No current facility-administered medications for this visit. Objective BP 148/54 (BP Site: Left Arm, BP Position: Sitting, BP Cuff Size: Large Adult) Pulse 68 Resp 16 Wt 68.4 kg (150 lb 14.4 oz) BMI 26.73 kg/m Physical Exam Constitutional: General: She is not in acute distress. Appearance: She is not ill-appearing. HENT: Head: Normocephalic. Eyes: Extraocular Movements: Extraocular movements intact. Conjunctiva/sclera: Conjunctivae normal. Cardiovascular: Rate and Rhythm: Normal rate and regular rhythm. Heart sounds: No murmur heard. No friction rub. No gallop. Pulmonary: Effort: Pulmonary effort is normal. Breath sounds: Normal breath sounds. Abdominal: General: There is no distension. Palpations: Abdomen is soft. Tenderness: There is no abdominal tenderness. Musculoskeletal: Right lower leg: No edema. Left lower leg: No edema. Neurological: General: No focal deficit present. Mental Status: She is alert. Assessment and Plan 1. Hyperkalemia - ICD9: 276.7, ICD10: E87.5 (primary diagnosis) Resolved. 2. Hypothyroidism, unspecified type - ICD9: 244.9, ICD10: E03.9 - continue current dose of Synthroid. - LEVOTHYROXINE 125 MCG TABLET 3. Abnormal EKG - ICD9: 794.31, ICD10: R94.31 Resolved. 4. Primary hypertension - ICD9: 401.9, ICD10: I10 - Improving control - Continue current medications 5. Controlled type 2 diabetes mellitus without complication, with long-term current use of insulin (HCC) - ICD9: 250.00, V58.67, ICD10: E11.9, Z79.4 Continue same. 6. Need for COVID-19 vaccine - ICD9: V04.89, ICD10: Z23 - PFIZER-BIONTAccelereach COVID-19 VACCINE ( SEAS[place]) AGE 12+ YR Maldonado Raza MD * Edie Samayoa LPN - 06/29/2023 1:48 PM EDT Images from the original note were not included. Patient Outreach 06/22/2023 Review Appraiser Management Mireya Gross RN Transition Of Care Reason for Visit Progress Notes Rakesh Population Health Navigator, Evelina Garcia POPULATION HEALTH NAVIGATION OUTREACH Action/FYI Spoke to patient and scheduled TCM follow up with pcp on 06-29-23 TCM eligible through 07/05 discharged from on 06/21/23. Admitted for: Abnormal EKG Hyperkalemia resolved Patient Identified by Name and : YES, via phone Outreach Outcome/Action Spoke to patient / parent / legal guardian: Patient scheduled Did you use a PCP flex slot to schedule this appointment? No Reason for Outreach [facility] Payer: Payor: [facility] MEDICARE / Plan: [facility] DUAL COMPLETE HMO POS SNP / Product Type: Medicare / Care Gap Reviewed:: Follow-up appointment Reminder: Reminder note to check Health Maintenance for items below Health Maintenance items due: Dilated Retinal Exam due on 05/30/2018 BP Controlled (<130/80) due on 08/14/2019 Shingrix Vaccine(2 of 2) due on 07/09/2020 Depression Assessment Never done Covid-19 Vaccine( - season) due on 05/05/2023 Mammogram Screening due on 07/05/2023 Navigation Signature: Evelina Cameron Population Health Navigator June 22, 2023 12:15 PM Note Details Progress Notes Mireya Gross RN (Registered Nurse) TRANSITIONAL CARE MANAGEMENT (TCM) COMMUNITY MONITORING PROGRAM Provider Action/FYI: Tcm eligible through 07/05 Navigation Team Please assist with scheduling TCM Hospital discharge follow up. TCM eligible through 07/05. Thank you Vascular 07/04 scheduled RUE fistulagram TRANSITIONS OF CARE CRITICAL ISSUES: LARIOS MEDICATION CHANGES: Metoprolol 25 mg BID added LAB MONITORING NEEDED: Per PCP IMAGING FOLLOW-UP: Echocardiogram to ordered by Dr. Barros's - pt. Aware and will schedule LABS AND PROCEDURES PENDING AT DISCHARGE: No FOLLOW UP: With PCP, cardiology, and vascular surgery- pt. Aware and will schedule hemodialysis Monday and Monday [facility] 530 am chair time Pt. Reports doing the same. Tolerating diet, denies n/v/d Denies new or worsening shortness of breath swelling urinating with no problems pain, tired or weak daily weight- weighs self off and on did not weigh self today Denies new or worsening symptoms or concerns since leaving the hospital. Denies questions or concerns in regards to discharge instructions. Continue taking your medications as ordered Keep all physician appointments Eat small, frequent meals throughout the day Monitoring foods with potassium, protein, and salt TCM Home Visit Referral Source of Stratification: [facility] Hospital Admission Status: Discharged Readmission Risk Score: 14 LAURA Score: 1 Patient meets program referral criteria: No Patient does not qualify for High Risk TCM Home Visit program due to: Discharged home, does not meet program criteria SUMMARY: Discharge Network Status: In-Network Discharge Pt discharged from on 06/21/23. Admitted for: Abnormal EKG Hyperkalemia resolved Contact made with patient: Yes Hi my name is Mireya Gross RN and I am calling [facility] on behalf of your PCP,Maldonado Raza MD I understand you were recently in the hospital so I am calling to check in with you to ensure you are feeling well now that you're home. May I ask you a few questions related to your hospital stay and well-being? Yes Contact with patient post discharge, spoke to patient. Patient identified by name and . Do you feel your health is BETTER, WORSE, or the SAME since leaving the hospital? Same ACTION TAKEN: Patient indicated symptoms are better or same, no action required. Continue outreach. MEDICATIONS: Many patients have questions or concerns about their medications once they are home. Do you have any questions about taking your medications or which medication you should be on? No Do you need any medication refills at this time, including any of the medications you might take only when needed? No ACTION TAKEN: No action required For RNs or Pharmacy completing outreach ONLY, was a medication review completed? Yes, Partially reviewed per pts. Preference. SOCIAL: We would like to make sure you have what you need so that your basics needs are met - including your personal safety, food, housing and medications. Would you like to speak with a social work user experience team lead to help give you support for any of these needs? No It can be normal to feel anxious or down during a time like this. Would you like to talk to a mental health professional about how you have been feeling? No ACTION TAKEN: No action taken DISCHARGE INTRUCTIONS: Your discharge instructions / After Visit Summary (AVS) are important in guiding you through the recovery process. Do you have any questions related to your discharge instructions? No Do you have all the necessary equipment and supplies at home? Yes ACTION TAKEN: No action required I would like to help you schedule a hospital follow-up virtual or telephone visit with your PCP. This is a great way for you to connect with your provider to ensure you have safely transitioned home.If you are agreeable, I will send your request to a spares scheduler who will contact and assist you with that appointment. This will give you an opportunity to ask any questions or address any concerns youmay have with your PCP. Inform the patient that if they have any questions or concerns prior to that appointment, to call their PCP's office right away. ACTION TAKEN: Patient desires an appointment - Routed to [facility] [[id number]] for schedulingtelehealth visit (telephonic, virtual visit, or Facetime) within 7 days of discharge with PCP care team. Indicate hospital follow-up appointment needed within 7 days in Provider/FYI box. End Outreach. Your doctor would like us to remind you of the recommendations regarding the coronavirus (Covid19) outbreak: Avoid public places as much as possible. Avoid close contact (within 6 feet) with others you don t live with, especially if they are sick. Stay home if you are sick. Wash your hands regularly for at least 20 seconds with soap and water. Wear a cloth mask in public places to help reduce community spread. Do not go to your Doctor s office unless instructed to do so. For any non- emergency symptoms, call your Doctor s office to get instructions on how to manage (we might recommend a telephone or virtualvisit). For emergency symptoms, proceed to Emergency Department as usual but inform them of cough and fever symptoms DESTIN if present (or call on the way if possible). JEANNETTE Education Ordered -: No Note Details Additional Documentation Flowsheets: Transitional Care Management Encounter Info: Billing Info, History, Allergies, Detailed Report, Procedural Documentation Communications View All Conversations on this Encounter Pharmacy Benefits [employer] ([employer]) Covered: Retail, Mail Order Unknown: Specialty, Long-Term Care Group ID: [id number] Group name: MEDICARE BIN: [id number] PCN: [id number] : 1965 Legal sex: F Address: [address] [place] [address] Other Plans [employer] MEDICAID ([facility]) Travel Screening and History Disease Screening No documentation. Travel No documentation. Historical Audiology Exams No historic audiology exams found. Orders Placed None Medication Changes None Medication List Visit Diagnoses None Problem List documented in this encounterMi[facility]10-24-2023 Miscellaneous Notes* Telephone Encounter - Vilma Morales RN - 06/27/2023 10:[address] Barros left voice message for patient to call office for follow up visit following recent admission at . documented in this encounterMi[facility]10-24-2023 Instructions* Patient Instructions* Maty Krause COT - 06/27/2023 10:12 AM EDT INSTRUCTIONS FOR SCHEDULING SURGERY: CONTACT DR. CRUZ'S STEAMING CABINET TENDER: PRANAV EDGE AT [phone] (9AM-5PM, MONDAY-MONDAY) Please wait 24 hours after your appointment to contact Pranav - IF YOU RECEIVE VOICEMAIL, PLEASE LEAVE A MESSAGE AND WE WILL RETURN YOUR CALL - MY [employer] CHAIR WILL INFORM YOU IF ANY ADDITIONAL PREOPERATIVE TESTING IS REQUIRED, INCLUDING A PRE-OPERATIVE PHYSICAL (REQUIRED FOR ALL PROCEDURES IN WHICH ANESTHESIA IS INVOLVED) - YOU WILL NEED A PERSON (NOT A TAXI, BUS OR UBER) TO TAKE YOU HOME ON THE DAY OF SURGERY - ONCE A SURGICAL DATE(s) HAS BEEN SET, YOU WILL RECEIVE A PHONE CALL ON THE BUSINESS DAY PRIOR TO SURGERY TO GIVE YOU YOUR EXACT ARRIVAL TIME - ARRIVAL TIMES ARE TYPICALLY 1 HOUR BEFORE YOUR PROCEDURE IS SCHEDULED TO TAKE PLACE, ALTHOUGH THIS MAY VARY BASED ON THE TYPE OF PROCEDURE YOU ARE HAVING DONE AND EXTRINSIC FACTORS WHICH MAY AFFECTTHE SCHEDULE ON THE DAY OF SURGERY - IF YOU ARE RECEIVING ANESTHESIA (WHICH INCLUDES MOST PROCEDURES EXCEPT FOR THOSE WHICH ARE LOCAL ANESTHESIA ONLY), YOU WILL NEED TO FAST FOR 8 HOURS BEFORE YOUR SCHEDULED SURGERY TIME. SPECIFIC DETAILS REGARDING DAY OF SURGERY INSTRUCTIONS INCLUDING WHETHER YOU NEED TO STOP ANY EXISTING MEDICATIONS WILL BE EXPLAINED AT YOUR PRE-OPERATIVE PHYSICAL. - YOU HAVE ANY ADDITIONAL CONCERNS OR QUESTIONS, CALL DR. CRUZ'S OFFICE AT [phone] (PRESS 0TO BYPASS THE AUTOMATED GREETING AND BE TRANSFERRED TO AN SUPERVISOR OPENING AND PICKING) documented [facility] History of Present illness Narrative* Héctor Cruz MD - 06/27/2023 9:08 AM EDT Encounter Diagnosis ICD-10-CM 1. Idiopathic corneal edema, bilateral H18.223 CORNEAL TOPOGRAPHY PENTACAM OU (BOTH EYES) ECC/CONFOCAL MICROSCOPY OU (BOTH EYES) 2. Controlled type 2 diabetes mellitus without complication, with long-term current use of insulin ([facility]) E11.9 CORNEAL TOPOGRAPHY PENTACAM OU (BOTH EYES) Z79.4 OCT MACULA CIRRUS OU (BOTH EYES) 3. Pseudophakia Z96.1 4. PCO (posterior capsular opacification), left H26.492 5. Senile nuclear cataract, right H25.11 New patient Last exam with [facility] ~02/2023 Descemet's Folds, OU (OS>OD) Highly irregular Pentacam OU Pseudophakia, OS S/p CEIOL 02/2023 ([facility]) Patient states vision has been blurry since about 4 days after surgery Cataract, OD Visually significant Waiting to undergo CEIOL until blurry vision OS improves Type 2 Diabetes without Retinopathy Insulin dependent No NVI, NVD, NVE appreciated (though challenging peripheral exam) Hemoglobin A1C (%) Date Value 02/23/2023 6.9 03/30/2021 6.2 Glaucoma? No known family history Patient was told she has glaucoma Not currently on drops, never had any glaucoma surgeries Was on brimonidine post- cataract surgery 02/2023 but since tapered off IOP 07/13 today Pallorous disc, OS > OD: unclear what effect glaucoma may have on baseline [facility] OS Cole Chu MD Ophthalmology Resident, PGY-2 cornea consult requested s/p PCIOL OS, uncomplicated by patient history but vision got worse 3-4 days after surgery fairly dense PCO OS but would not explain time course of vision decline after surgery and endothelial layer still appears abnormal OS regardless -Confocal microscopy with nondiscernible endothelial layer left eye, appears to be normal mosaic right eye ? Possible pseudophakic bullous keratopathy left eye-corneal thickness is still minimally differentfrom right eye but there does appear to be central edema Unclear reason for high against the rule cylinder on pentacam-? Testing artifact versus possible component of central scar (mild subepithelial haze, possibly could have been sterile ulcer/epi defect after surgery but does not look severe enough to explain topographic changes) consider proceed with DMEK OS Will request records from postoperative period from treating physician Unclear vision potential left eye, possible posterior segment limitation (?vascular) but no obviousresidual manifestations Cannot assess for APD today as has already been dilated I have confirmed and edited as necessary the relevant ophthalmic history, ROS, and the neuro exam findings as obtained by others. I have seen and examined this patient. I have discussed the case and the management of this patient's care with the Resident/Fellow, if applicable. I also have reviewed and agree with the assessment and plan as stated above and agree with all of its relevant components. Héctor Cruz MD documented in this encounterMi[facility]10-[facility] History of Present illness Narrative* [facility] Health NavigatorEvelina - 06/22/2023 12:15 PM EDT POPULATION HEALTH NAVIGATION OUTREACH Action/FYI Spoke to patient and scheduled TCM follow up with pcp on 06-29-23 TCM eligible through 07/05 discharged from on 06/21/23. Admitted for: Abnormal EKG Hyperkalemia resolved Patient Identified by Name and : YES, via phone Outreach Outcome/Action Spoke to patient / parent / legal guardian: Patient scheduled Did you use a PCP flex slot to schedule this appointment? No Reason for Outreach Community Monitoring Pool Payer: Payor: [facility] MEDICARE / Plan: [facility] DUAL COMPLETE HMO POS SNP / Product Type: Medicare / Care Gap Reviewed:: Follow-up appointment Reminder: Reminder note to check Health Maintenance for items below Health Maintenance items due: Dilated Retinal Exam due on 05/30/2018 BP Controlled (<130/80) due on 08/14/2019 Shingrix Vaccine(2 of 2) due on 07/09/2020 Depression Assessment Never done Covid-19 Vaccine( season) due on 05/05/2023 Mammogram Screening due on 07/05/2023 Navigation Signature: Evelina [facility] Health Navigator June 22, 2023 12:15 PM Electronically signed by Rakesh [facility][Note 3] NavigatorEvelina at 06/22/2023 12:16 PM EDT * Mireya Gross RN - 06/22/2023 8:53 AM EDT TRANSITIONAL CARE MANAGEMENT (TCM) COMMUNITY MONITORING PROGRAM Provider Action/FYI: Tcm eligible through 07/05 Navigation Team Please assist with scheduling TCM Hospital discharge follow up. TCM eligible through 07/05. Thank you Vascular 07/04 scheduled RUE fistulagram TRANSITIONS OF CARE CRITICAL ISSUES: LARIOS MEDICATION CHANGES: Metoprolol 25 mg BID added LAB MONITORING NEEDED: Per PCP IMAGING FOLLOW-UP: Echocardiogram to ordered by Dr. Viera - pt. Aware and will schedule LABS AND PROCEDURES PENDING AT DISCHARGE: No FOLLOW UP: With PCP, cardiology, and vascular surgery- pt. Aware and will schedule hemodialysis Monday and Monday [place] [place] 530 am chair time Pt. Reports doing the same. Tolerating diet, denies n/v/d Denies new or worsening shortness of breath swelling urinating with no problems pain, tired or weak daily weight- weighs self off and on did not weigh self today Denies new or worsening symptoms or concerns since leaving the hospital. Denies questions or concerns in regards to discharge instructions. Continue taking your medications as ordered Keep all physician appointments Eat small, frequent meals throughout the day Monitoring foods with potassium, protein, and salt TCM Home Visit Referral Source of Stratification: [facility] Admission Status: Discharged Readmission Risk Score: 14 LAURA Score: 1 Patient meets program referral criteria: No Patient does not qualify for High Risk TCM Home Visit program due to: Discharged home, does not meet program criteria SUMMARY: Discharge Network Status: In-Network Discharge Pt discharged from on 06/21/23. Admitted for: Abnormal EKG Hyperkalemia resolved Contact made with patient: Yes Hi my name is Mireya Gross RN and I am calling [facility] the [facility] on behalf of your PCP,Maldonado Raza MD I understand you were recently in the hospital so I am calling to check in with you to ensure you are feeling well now that you're home. May I ask you a few questions related to your hospital stay and well-being? Yes Contact with patient post discharge, spoke to patient. Patient identified by name and . Do you feel your health is BETTER, WORSE, or the SAME since leaving the hospital? Same ACTION TAKEN: Patient indicated symptoms are better or same, no action required. Continue outreach. MEDICATIONS: Many patients have questions or concerns about their medications once they are home. Do you have any questions about taking your medications or which medication you should be on? No Do you need any medication refills at this time, including any of the medications you might take only when needed? No ACTION TAKEN: No action required For RNs or Pharmacy completing outreach ONLY, was a medication review completed? Yes, Partially reviewed per pts. Preference. SOCIAL: We would like to make sure you have what you need so that your basics needs are met - including your personal safety, food, housing and medications. Would you like to speak with a social work user experience team lead to help give you support for any of these needs? No It can be normal to feel anxious or down during a time like this. Would you like to talk to a mental health professional about how you have been feeling? No ACTION TAKEN: No action taken DISCHARGE INTRUCTIONS: Your discharge instructions / After Visit Summary (AVS) are important in guiding you through the recovery process. Do you have any questions related to your discharge instructions? No Do you have all the necessary equipment and supplies at home? Yes ACTION TAKEN: No action required I would like to help you schedule a hospital follow-up virtual or telephone visit with your PCP. This is a great way for you to connect with your provider to ensure you have safely transitioned home.If you are agreeable, I will send your request to a spares scheduler who will contact and assist you with that appointment. This will give you an opportunity to ask any questions or address any concerns youmay have with your PCP. Inform the patient that if they have any questions or concerns prior to that appointment, to call their PCP's office right away. ACTION TAKEN: Patient desires an appointment - Routed to [facility] [[id number]] for schedulingtelehealth visit (telephonic, virtual visit, or Facetime) within 7 days of discharge with PCP care team. Indicate hospital follow-up appointment needed within 7 days in Provider/FYI box. End Outreach. Your doctor would like us to remind you of the recommendations regarding the coronavirus (Covid19) outbreak: Avoid public places as much as possible. Avoid close contact (within 6 feet) with others you don t live with, especially if they are sick. Stay home if you are sick. Wash your hands regularly for at least 20 seconds with soap and water. Wear a cloth mask in public places to help reduce community spread. Do not go to your Doctor s office unless instructed to do so. For any non- emergency symptoms, call your Doctor s office to get instructions on how to manage (we might recommend a telephone or virtualvisit). For emergency symptoms, proceed to Emergency Department as usual but inform them of cough and fever symptoms DESTIN if present (or call on the way if possible). JEANNETTE Education Ordered -: No documented in this encounterMi[facility]10-19-[facility]23 Miscellaneous Notes* Telephone Encounter - Shyann Walsh - 06/22/2023 9:05 AM EDT Called patient to reschedule RUE fistulagram. Patient did not want 06/27, agreed to 07/04 at Pathology Laboratory Aide. Patient states she is able to dialyze and can wait. Needs first case since she is diabetic. Reviewed all roving tester laboratory instructions, patient verbalized understanding. Patient states she takes asa and was told to hold only on day of procedure. Routing to AVW nurse pool to confirm holding instructions. documented in this encounterMi[facility]10-18-2023 NoteHNO ID: [id number] Author: Ember Raphael, RN Service: Dialysis Author Type: Registered Nurse Type: Progress Notes Filed: 06/21/2023 12:58 PM Note Text: 1250 Pt arrived to unit via bed and transport. HD treatment to last 3 hours with 2 meq/L K. Blood flow rate 350 ml/min, dialysate flow rate 700 ml/min. UFG 1L. Heparin 0. See HD flowsheet for further information. Easily accessed via RUE graft with + thrill and bruit using 15 gauge needles facing up and up with positive blood return and flushing easily. Site clean and dry with no signs of infection. PATIENT EDUCATION TOPIC: Hemodialysis PATIENT NAME: Sandy Bhatti PATIENT LOCATION: [place] [address]* READINESS TO LEARN COGNITIVE ABILITY: Alert and oriented MOTIVATION TO LEARN: Interested FAMILY SUPPORT: Unable to assess - Family not present INSTRUCTION PROVIDED TO: Patient PATIENT LEARNS BEST BY: Individual Instruction FACTORS AFFECTING LEARNING: None PHYSICAL LIMITATIONS AFFECTING LEARNING: None LEARNING RESPONSE DIAGNOSIS: ADULT: Chronic Renal Failure PATIENT/FAMILY RESPONSE: Verbalizes understanding of: PATIENT SAFETY PRINCIPLES METHOD OF INSTRUCTION: Individual instruction FOLLOW-UP PLAN: Complete - No need for follow-up INSTRUCTIONAL AIDS USED: NA SUPPLEMENTAL MATERIAL PROVIDED TO PATIENT: None REFERRAL (RECOMMENDATION): None Electronically Signed By: Ember Raphael UNIVERSAL PROTOCOL / SAFETY CHECKLIST Procedure to be Performed: HD Sign In: A Moment of CARE was completed. Personnel directly involved with the procedure wore the appropriate PPE (Personal Protective Equipment). Patient/Surrogate Stated/Verified: PATIENT VERIFIED(optional for EMERGENT procedures): Patient name, Date of , Relevant allergies, and The intended procedure Time Out Communication: Intended patient and procedure match the source documents. Consent documented and matches the intended procedure. Sign Out: SIGN OUT (optional for EMERGENT procedures): Post-procedure follow-up management communicated and Plan of Care Visit completed when applicable. Ember Donavon, [facility]10-18-2023 NoteHNO ID: [id number] Author: Mason Nguyễn MD Service: Vascular Surgery Author Type: Resident Type: Plan of Care Filed: 06/21/2023 11:29 AM Note Text: VASCULAR SURGERY PLAN OF CARE Patient Name: Sandy Bhatti Sandy Bhatti is a 58 year old female with a past medical history of ESRD on HD MWF s/p RUE AVG 04/26/21, HTN, HLD, T2DM, who presented 06/20 for elective fistulagram with possible intervention, cancelled due to incidental ST changes on pre-op EKG and K 6.3. Cardiology evaluated and noted no STEMI but LVH. She had a dialysis session completed successfully yesterday via RUE fistula. Patient Vitals for the past 24 hrs: BP Temp Temp src Pulse Resp SpO2 06/21/23 0700 (!) 134/40 36.4 ?C (97.5 ?F) Oral 67 18 97 % 06/20/23 1959 (!) 130/43 37.1 ?C (98.8 ?F) Oral 74 16 97 % 06/20/23 1900 (!) 125/42 -- -- 76 -- -- 06/20/23 1845 -- -- -- 76 -- -- 06/20/23 1830 -- -- -- 77 -- -- 06/20/23 1815 -- -- -- 79 -- -- 06/20/23 1800 (!) 114/45 -- -- 79 -- -- 06/20/23 1745 -- -- -- 81 -- -- 06/20/23 1730 123/51 -- -- 84 -- 98 % 06/20/23 1715 92/58 -- -- 95 -- 98 % 06/20/23 1700 124/50 -- -- 97 -- 97 % 06/20/23 1645 123/52 -- -- 97 -- 98 % 06/20/23 1630 116/56 -- -- 99 -- 100 % 06/20/23 1615 152/55 37.2 ?C (99 ?F) Oral 102 16 98 % 06/20/23 1615 -- -- -- 113 -- 100 % 06/20/23 1600 142/61 -- -- 79 -- 99 % 06/20/23 1545 -- -- -- 80 -- -- 06/20/23 1530 -- -- -- 88 -- -- 06/20/23 1523 151/50 36.5 ?C (97.7 ?F) Oral 90 16 99 % 06/20/23 1445 (!) 149/48 -- -- 98 22 100 % 06/20/23 1430 130/52 -- -- 98 18 100 % 06/20/23 1400 146/51 -- -- 94 18 100 % 06/20/23 1330 143/52 -- -- 85 18 -- 06/20/23 1300 145/51 -- -- 66 18 99 % 06/20/23 1245 161/57 36.1 ?C (97 ?F) Temporal 76 18 98 % Plan: - Cardiology following, appreciate workup and recommendations - OK to proceed with RUE fistulagram - Timing pending discussion with patient and staff. Mason Nguyễn MD - Vascular Surgery PATIENT NAME: Sandy Bhatti DATE: June 21, 2023 TIME: 11:20 AM PAGER/CONTACT #: [id number] NoteHNO ID: [id number] Author: Aneta Busch RN Service: Dialysis Author Type: Registered Nurse Type: Progress Notes Filed: 06/20/2023 3:23 PM Note Text: 1245: Pt arrived to unit via bed and transport. HD treatment to last 2 hours with 2 meq/L K. Blood flow rate 350 ml/min, dialysate flow rate 700 ml/min. UFG 1L. Heparin 0. See HD flowsheet for further information. Easily accessed via JONAS fistula with + thrill and bruit using 15 gauge needles facing up and up with positive blood return and flushing easily. Site clean and dry with no signs of infection. UNIVERSAL PROTOCOL / SAFETY CHECKLIST Procedure to be Performed: hemodialysis Sign In: A Moment of CARE was completed. Personnel directly involved with the procedure wore the appropriate PPE (Personal Protective Equipment). Patient/Surrogate Stated/Verified: PATIENT VERIFIED(optional for EMERGENT procedures): Patient name, Date of , Relevant allergies, and The intended procedure Time Out Communication: Intended patient and procedure match the source documents. Consent documented and matches the intended procedure. Sign Out: SIGN OUT (optional for EMERGENT procedures): No specimen collected. SPEEDY [place] EDUCATION TOPIC: PROCEDURE / SURGERY: Procedure/Surgery: hemodialysis PATIENT NAME: Sandy Bhatti PATIENT LOCATION: [facility] POOL/[facility] CATH* READINESS TO LEARN COGNITIVE ABILITY: Alert and oriented MOTIVATION TO LEARN: Interested FAMILY SUPPORT: None - Unavailable/disinterested INSTRUCTION PROVIDED TO: Patient PATIENT LEARNS BEST BY: Individual Instruction FACTORS AFFECTING LEARNING: None PHYSICAL LIMITATIONS AFFECTING LEARNING: None LEARNING RESPONSE DIAGNOSIS: ADULT: Chronic Renal Failure PATIENT/FAMILY RESPONSE: Verbalizes understanding of: INFECTION MANAGEMENT-Signs and symptoms of an infection and importance of contacting the physician PAIN MANAGEMENT-Effective strategies to manage pain in addition to pain medication METHOD OF INSTRUCTION: Individual instruction FOLLOW-UP PLAN: Complete - No need for follow-up INSTRUCTIONAL AIDS USED: NA SUPPLEMENTAL MATERIAL PROVIDED TO PATIENT: None REFERRAL (RECOMMENDATION): None Electronically Signed By: Aneta Busch 1445: Treatment complete, pt completely retransfused. Dialysis needles removed, hemostasis achieved. Total UF removed 1L. Total heparin given during treatment 0 units. Report called to floor RN. Transport contacted. Pt transported in stable condition.[id number] History of Past illness Narrative* Problem Noted Date Diagnosed Date Resolved Date Hyperkalemia 06/20/2023 09/14/2023 Abnormal EKG 06/20/2023 09/14/2023 Ventral hernia with obstruct ion, without gangrene 12/09/2021 06/29/2023 Steal syndrome dialysis vascular access 05/17/2019 02/23/2023 CKD (chronic kidney disease) stage V requiring chronic dialysis 03/01/2018 08/29/2019 Overview: Dr. Pendleton, nephrology. CKD (chronic kidney disease) stage 4, GFR 15-29 ml/min 04/05/2017 03/02/2018 Overview: Dr. Nunez, nephrology. CKD (chronic kidney disease) stage 3, GFR 30-59 ml/min 07/17/2013 05/02/2017 Calculus of ureter 06/12/2007 2 Urinary tract infection, site not specified 06/12/2007 03/22/2012 Renal colic 06/12/2007 03/22/2012 Depression 09/04/2006 06/12/2023 documented as of this encounter (statuses as of 10/07/2023) [facility] History of Past illness Narrative* Problem Noted Date Diagnosed Date Resolved Date Hyperkalemia 06/20/2023 09/14/2023 Abnormal EKG 06/20/2023 09/14/2023 Ventral hernia with obstruct ion, without gangrene 12/09/2021 06/29/2023 Steal syndrome dialysis vascular access 05/17/2019 02/23/2023 CKD (chronic kidney disease) stage V requiring chronic dialysis 03/01/2018 08/29/2019 Overview: Dr. Pendleton, nephrology. CKD (chronic kidney disease) stage 4, GFR 15-29 ml/min 04/05/2017 03/02/2018 Overview: Dr. Nunez, nephrology. CKD (chronic kidney disease) stage 3, GFR 30-59 ml/min 07/17/2013 05/02/2017 Calculus of ureter 06/12/2007 2 Urinary tract infection, site not specified 06/12/2007 03/22/2012 Renal colic 06/12/2007 03/22/2012 Depression 09/04/2006 06/12/2023 documented as of this encounter (statuses as of 10/13/2023) [facility] of Past illness Narrative* Problem Noted Date Diagnosed Date Resolved Date Hyperkalemia 06/20/2023 09/14/2023 Abnormal EKG 06/20/2023 09/14/2023 Ventral hernia with obstruct ion, without gangrene 12/09/2021 06/29/2023 ESRD (end stage renal disease) 04/21/2021 10/27/2023 Overview: History: T/Th/Sat Assessment/Plan: IHD today BMP pending Steal syndrome dialysis vascular access 05/17/2019 02/23/2023 CKD (chronic kidney disease) stage V requiring chronic dialysis 03/01/2018 08/29/2019 Overview: Dr. Pendleton, nephrology. CKD (chronic kidney disease) stage 4, GFR 15-29 ml/min 04/05/2017 03/02/2018 Overview: Dr. Nunez, nephrology. CKD (chronic kidney disease) stage 3, GFR 30-59 ml/min 07/17/2013 05/02/2017 Calculus of ureter 06/12/2007 2 Urinary tract infection, site not specified 06/12/2007 03/22/2012 Renal colic 06/12/2007 03/22/2012 Depression 09/04/2006 06/12/2023 documented as of this encounter (statuses as of 10/29/2023) [facility] of Past illness Narrative* Problem Noted Date Diagnosed Date Resolved Date Hyperkalemia 06/20/2023 09/14/2023 Abnormal EKG 06/20/2023 09/14/2023 Ventral hernia with obstruct ion, without gangrene 12/09/2021 06/29/2023 ESRD (end stage renal disease) 04/21/2021 10/27/2023 Overview: History: T//Mon Assessment/Plan: IHD today BMP pending Steal syndrome dialysis vascular access 05/17/2019 02/23/2023 CKD (chronic kidney disease) stage V requiring chronic dialysis 03/01/2018 08/29/2019 Overview: Dr. Pendleton, nephrology. CKD (chronic kidney disease) stage 4, GFR 15-29 ml/min 04/05/2017 03/02/2018 Overview: Dr. Nunez, nephrology. CKD (chronic kidney disease) stage 3, GFR 30-59 ml/min 07/17/2013 05/02/2017 Calculus of ureter 06/12/2007 2 Urinary tract infection, site not specified 06/12/2007 03/22/2012 Renal colic 06/12/2007 03/22/2012 Depression 09/04/2006 06/12/2023 documented as of this encounter (statuses as of 11/08/2023) [facility] of Past illness Narrative* Problem Noted Date Diagnosed Date Resolved Date Hyperkalemia 06/20/2023 09/14/2023 Abnormal EKG 06/20/2023 09/14/2023 Ventral hernia with obstruct ion, without gangrene 12/09/2021 06/29/2023 ESRD (end stage renal disease) 04/21/2021 10/27/2023 Overview: History: T/Th/Sat Assessment/Plan: IHD today BMP pending Steal syndrome dialysis vascular access 05/17/2019 02/23/2023 CKD (chronic kidney disease) stage V requiring chronic dialysis 03/01/2018 08/29/2019 Overview: Dr. Pendleton, nephrology. CKD (chronic kidney disease) stage 4, GFR 15-29 ml/min 04/05/2017 03/02/2018 Overview: Dr. Nunze, nephrology. CKD (chronic kidney disease) stage 3, GFR 30-59 ml/min 07/17/2013 05/02/2017 Calculus of ureter 06/12/2007 2 Urinary tract infection, site not specified 06/12/2007 03/22/2012 Renal colic 06/12/2007 03/22/2012 Depression 09/04/2006 06/12/2023 documented as of this encounter (statuses as of 11/10/2023) [facility] of Past illness Narrative* Problem Noted Date Diagnosed Date Resolved Date Hyperkalemia 06/20/2023 09/14/2023 Abnormal EKG 06/20/2023 09/14/2023 Ventral hernia with obstruct ion, without gangrene 12/09/2021 06/29/2023 ESRD (end stage renal disease) 04/21/2021 10/27/2023 Overview: History: T/Th/Sat Assessment/Plan: IHD today BMP pending Steal syndrome dialysis vascular access 05/17/2019 02/23/2023 CKD (chronic kidney disease) stage V requiring chronic dialysis 03/01/2018 08/29/2019 Overview: Dr. Pendleton, nephrology. CKD (chronic kidney disease) stage 4, GFR 15-29 ml/min 04/05/2017 03/02/2018 Overview: Dr. Nunez, nephrology. CKD (chronic kidney disease) stage 3, GFR 30-59 ml/min 07/17/2013 05/02/2017 Calculus of ureter 06/12/2007 2 Urinary tract infection, site not specified 06/12/2007 03/22/2012 Renal colic 06/12/2007 03/22/2012 Depression 09/04/2006 06/12/2023 documented as of this encounter (statuses as of 11/16/2023) [facility] of Past illness Narrative* Problem Noted Date Diagnosed Date Resolved Date Hyperkalemia 06/20/2023 09/14/2023 Abnormal EKG 06/20/2023 09/14/2023 Ventral hernia with obstruct ion, without gangrene 12/09/2021 06/29/2023 ESRD (end stage renal disease) 04/21/2021 10/27/2023 Overview: History: T//Sat Assessment/Plan: IHD today BMP pending Steal syndrome dialysis vascular access 05/17/2019 02/23/2023 CKD (chronic kidney disease) stage V requiring chronic dialysis 03/01/2018 08/29/2019 Overview: Dr. Pendleton, nephrology. CKD (chronic kidney disease) stage 4, GFR 15-29 ml/min 04/05/2017 03/02/2018 Overview: Dr. Nunez, nephrology. CKD (chronic kidney disease) stage 3, GFR 30-59 ml/min 07/17/2013 05/02/2017 Calculus of ureter 06/12/2007 2 Urinary tract infection, site not specified 06/12/2007 03/22/2012 Renal colic 06/12/2007 03/22/2012 Depression 09/04/2006 06/12/2023 documented as of this encounter (statuses as of 11/21/2023) [facility] History of Past illness Narrative* Problem Noted Date Diagnosed Date Resolved Date Hyperkalemia 06/20/2023 09/14/2023 Abnormal EKG 06/20/2023 09/14/2023 Ventral hernia with obstruct ion, without gangrene 12/09/2021 06/29/2023 ESRD (end stage renal disease) 04/21/2021 10/27/2023 Overview: History: T/Th/Sat Assessment/Plan: IHD today BMP pending Steal syndrome dialysis vascular access 05/17/2019 02/23/2023 CKD (chronic kidney disease) stage V requiring chronic dialysis 03/01/2018 08/29/2019 Overview: Dr. Pendleton, nephrology. CKD (chronic kidney disease) stage 4, GFR 15-29 ml/min 04/05/2017 03/02/2018 Overview: Dr. Nunez, nephrology. CKD (chronic kidney disease) stage 3, GFR 30-59 ml/min 07/17/2013 05/02/2017 Calculus of ureter 06/12/2007 2 Urinary tract infection, site not specified 06/12/2007 03/22/2012 Renal colic 06/12/2007 03/22/2012 Depression 09/04/2006 06/12/2023 documented as of this encounter (statuses as of 11/22/2023) [facility] History of Past illness Narrative* Problem Noted Date Diagnosed Date Resolved Date Hyperkalemia 06/20/2023 09/14/2023 Abnormal EKG 06/20/2023 09/14/2023 Ventral hernia with obstruct ion, without gangrene 12/09/2021 06/29/2023 ESRD (end stage renal disease) 04/21/2021 10/27/2023 Overview: History: T/Th/Sat Assessment/Plan: IHD today BMP pending Steal syndrome dialysis vascular access 05/17/2019 02/23/2023 CKD (chronic kidney disease) stage V requiring chronic dialysis 03/01/2018 08/29/2019 Overview: Dr. Pendleton, nephrology. CKD (chronic kidney disease) stage 4, GFR 15-29 ml/min 04/05/2017 03/02/2018 Overview: Dr. Nunez, nephrology. CKD (chronic kidney disease) stage 3, GFR 30-59 ml/min 07/17/2013 05/02/2017 Calculus of ureter 06/12/2007 2 Urinary tract infection, site not specified 06/12/2007 03/22/2012 Renal colic 06/12/2007 03/22/2012 Depression 09/04/2006 06/12/2023 documented as of this encounter (statuses as of 12/11/2023) [facility] History of Past illness Narrative* Problem Noted Date Diagnosed Date Resolved Date Hyperkalemia 06/20/2023 09/14/2023 Abnormal EKG 06/20/2023 09/14/2023 Ventral hernia with obstruct ion, without gangrene 12/09/2021 06/29/2023 ESRD (end stage renal disease) 04/21/2021 10/27/2023 Overview: History: T/Th/Sat Assessment/Plan: IHD today BMP pending Steal syndrome dialysis vascular access 05/17/2019 02/23/2023 CKD (chronic kidney disease) stage V requiring chronic dialysis 03/01/2018 08/29/2019 Overview: Dr. Pendleton, nephrology. CKD (chronic kidney disease) stage 4, GFR 15-29 ml/min 04/05/2017 03/02/2018 Overview: Dr. Nunez, nephrology. CKD (chronic kidney disease) stage 3, GFR 30-59 ml/min 07/17/2013 05/02/2017 Calculus of ureter 06/12/2007 2 Urinary tract infection, site not specified 06/12/2007 03/22/2012 Renal colic 06/12/2007 03/22/2012 Depression 09/04/2006 06/12/2023 documented as of this encounter (statuses as of 12/12/2023) [facility] History of Past illness Narrative* Problem Noted Date Diagnosed Date Resolved Date Hyperkalemia 06/20/2023 09/14/2023 Abnormal EKG 06/20/2023 09/14/2023 Ventral hernia with obstruct ion, without gangrene 12/09/2021 06/29/2023 ESRD (end stage renal disease) 04/21/2021 10/27/2023 Overview: History: T//Mon Assessment/Plan: IHD today BMP pending Steal syndrome dialysis vascular access 05/17/2019 02/23/2023 CKD (chronic kidney disease) stage V requiring chronic dialysis 03/01/2018 08/29/2019 Overview: Dr. Pendleton, nephrology. CKD (chronic kidney disease) stage 4, GFR 15-29 ml/min 04/05/2017 03/02/2018 Overview: Dr. Nunez, nephrology. CKD (chronic kidney disease) stage 3, GFR 30-59 ml/min 07/17/2013 05/02/2017 Calculus of ureter 06/12/2007 2 Urinary tract infection, site not specified 06/12/2007 03/22/2012 Renal colic 06/12/2007 03/22/2012 Depression 09/04/2006 06/12/2023 documented as of this encounter (statuses as of 12/15/2023) [facility] NoteHNO ID: [id number] Author: Denis Higgins MD Service: Vascular Surgery Author Type: Resident Type: Plan of Care Filed: 06/20/2023 11:12 AM Note Text: VASCULAR SURGERY PLAN OF CARE NOTE Sandy Bhatti [id number] 06/20/2023 11:07 AM Patient presented for elective RUE fistulogram. Pre-op EKG was concerning for possible inferior STEMI and K was 6.3. Patient asymptomatic throughout Cardiology consulted and Dr. Barros evaluated the the patient instantly and reassured that the KG is not concerning for a STEMI. But recommended to attempt dialysis and he will follow the patient. Patient to be admitted from [facility] to medicine ( Dr. Coffman accepted). Our team contacted Dr. Guy for dialysis today Plan - Fistulogram aborted - Admit to medicine - Cardiology to continue following - Dialysis today. Ok to use RUE AVG for dialysis. If still elevated K and inability to clear the patient will require MICU admit for a nontunneled line for dialysis prior to fistulogram Discussed with Dr. Juan F Higgins MD Vascular [facility], PGY 2 [id number] Miscellaneous Notes* Telephone Encounter - Aram Eduardo MD - 06/20/2023 10:20 AM EDT Sandy Bhatti is a 58 year old female, fistula gram scheduled today. Pt. Is complaining of SOB Pre op EKG possible inferior STEMI, housing quality standard inspector dr. Barros was called and said no STEMI . And the EKG changes related to fluid overload. BMP K 6.2 . 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 May take Blood pressure and heart medications in the morning with small sip of water. [facility] Miscellaneous Notes* Telephone Encounter - Ania Rey LPN - 06/12/2023 4:56 PM EDT [facility] calling and states Insurance will only cover Humalog instead of Novolog.Please send to Pharmacy. documented in [facility] encounterMi[facility]10[facility] History of Present illness Narrative* Jennie, Ifeoma, RENATA.HIGH FREQUENCY MILL OPERATOR - 06/12/2023 3:15 PM EDT CC: Patient presents with: Surgical Followup HPI Sandy Bhatti is a 58 year old female who presents today for routine follow-up. She had hernia surgery last week and is scheduled for post op follow-up in a couple days. She denies any complications.Pain is controlled and no fever, chills, nausea, vomiting. She gets dialysis three days a week. Checking blood sugar 4-5 times a day. She did not bring her meter with her, states sugars range anywhere from 130 to 200. Last 30 day average on her meter was around 150. Taking all medications as prescribed without side effects. She is scheduled for thrombectomy of her AV fistula on 06/20 Review of Systems See HPI PAST MEDICAL HISTORY Diagnosis Date Acute kidney failure (HCC) 01/14/2018 Acute respiratory failure (HCC) Anxiety Arterial steal syndrome (HCC) 12/2018 Left AVF Calculus of ureter 06/12/2007 CKD (chronic kidney disease) stage V requiring chronic dialysis ([facility]) 03/01/2018 Dr. Pendleton, nephrology. Constipation Depression 09/04/2006 GERD (gastroesophageal reflux disease) Hemorrhoids HTN (hypertension) 09/04/2001 Hyperlipidemia 09/04/1999 Hypertrophic cardiomyopathy ([facility]) Proteinuria 06/14/2013 Renal colic 06/12/2007 Steal syndrome dialysis vascular access ([facility]) 05/17/2019 Recent increased left arm swelling, which was not previously present. She had an intervention in January on the mid subclavian vein for outflow stenosis. Her fistula is patent and working well. Assessment: 05/16/19 LUE DRIL (proximal brachial to distal brachial artery bypass with RLE rGSV - LUE fistula site c/d/i, +thrill/bruit, radial pulse palpable - RLE Thyroid disorder Tubular adenoma of colon 11/15/2022 Type II or unspecified type diabetes mellitus without mention of complication, not stated as uncontrolled 09/04/1985 VT (ventricular tachycardia) ([facility]) 05/17/2019 History: Per patient, has history of excited rhythm. Sees a housing quality standard inspector in [place], last seen in January 2019. No concerns. She will continue to follow up with them. Assessment: Ventricular tachycardiaintermittently post-op with HR up to 110s. No chest pain or SOB. Troponins sent to monitor. Labs WNL. ECG completed showing BBB (has had on intermittent previous ECG). - 05/17/19 repeat ECG back to PAST SURGICAL HISTORY Procedure Laterality Date APPENDECTOMY 1992 AV ANASTOMIES OPEN;BY BASILIC VEIN WINN Right 04/20/2020 transpose basilic vein fistula, R arm AV FISTULA OR GRAFT VENOUS Left 10/04/2017 AV FISTULA OR GRAFT VENOUS Left 09/20/2018 redo, failure to mature AV FISTULA OR GRAFT VENOUS Right 04/21/2021 BOWEL RESECTION HX 2005 CHOLECYSTECTOMY 1984 Cholecystectomy COLONOSCOPY SCREENING 11/15/2022 COLOSTOMY/SKIN LEVEL CECOSTOMY 2007 [id number], reversed 2006 CREATION OF AVF, PERCUTANEOUS USING MAGNETIC-GUIDED ARTERIAL AND VENOUS CATHETERS AND RADIOFREQUENCY ENERGY Right 11/14/2019 RIGHT AVF stage I EXPLORATORY LAPAROTOMY CELIOTOMY W/WO BIOPSY SPX 2006 Laparotomy, exp IR VENOUS FISTULAGRAM Left 01/22/2019 Left SC balloon PAST SURGICAL HISTORY OF Left 05/16/2019 LUE DRIL (proximal brachial to distal brachial artery bypass with RLE rGSV PAST SURGICAL HISTORY OF Left Cataract removed REDUCTION OF LARGE BREAST 1989 SALPINGECTOMY OR OOPHERECTOMY-ECTOPIC 1986 SLING OPER STRES INCONTINENCE 1998 TOTAL ABDOMINAL HYSTERECT W/WO RMVL TUBE OVARY 1990 Hysterectomy, RUSSELL ALLERGIES Codeine, Latex, Penicillins, and Chlorhexidine MEDICATIONS insulin detemir U-100 (LEVEMIR FLEXTOUCH U-100 INSULIN) 100 unit/mL (3 mL) injection pen Inject 48 Units subcutaneously daily at bedtime. insulin aspart U-100 (NOVOLOG FLEXPEN U-100 INSULIN) 100 unit/mL (3 mL) Inject 8 Units subcutaneously three times a day before meals. Add 1 unit for each 50 mg/dl above 150 amLODIPine (NORVASC) 5 mg tablet Take 1 tablet by mouth once daily. cloNIDine HCl (CATAPRES) 0.3 mg tablet Take 1 tablet by mouth daily at bedtime. atorvastatin (LIPITOR) 40 mg tablet Take 1 tablet by mouth daily at bedtime. lisinopril (ZESTRIL) 40 mg tablet Take 1 tablet by mouth once daily. insulin needles, DISPOSABLE, (PEN NEEDLE) 31 gauge x 5/16 Use one needle per dose four times per day. levothyroxine (SYNTHROID) 125 mcg tablet Take 1 tablet by mouth once daily. Take on empty stomach. For Thyroid SUMAtriptan (IMITREX) 50 mg tablet Take one tablet by mouth at onset of migraine. May repeat in 2 hours if ineffective ferric citrate 210 mg iron tab Take 1 tablet by mouth once daily. docusate sodium (COLACE) 100 mg capsule Take 1 capsule by mouth twice daily as needed for Constipation. nitroglycerin sublingual (NITROQUICK) 0.4 mg SL tablet Dissolve 0.4 mg under the tongue every 5 minutes as needed. NEPHRO-PETEY 0.8 mg tab Take 1 tablet by [...] Take 1 tablet by mouth once daily. FAMILY HISTORY Problem Relation Age of Onset Diabetes Mother Coronary Artery Disease Mother COPD Mother dec. age 79 Cancer Mother lung cancer Colon Cancer Father at age 52 Diabetes Sister Hypertension Sister Kidney Disease Brother other (Heart condition) Brother Diabetes Brother Cancer Brother lung cancer Coronary Artery Disease Brother dec. [place] 57 y.o. No Known Problems Maternal Grandmother No Known Problems Maternal Grandfather No Known Problems Paternal Grandmother No Known Problems Paternal Grandfather Social History Tobacco Use Smoking status: Former Packs/day: 1.50 Years: 3.00 Additional pack years: 0.00 Total pack years: 4.50 Types: Cigarettes Quit date: 09/04/2005 Years since quittin.7 Smokeless tobacco: Never Tobacco comments: quit march 10 Vaping Use Vaping Use: Never used Substance Use Topics Alcohol use: No Drug use: No BP 134/56 Pulse 89 Resp 14 SpO2 97% Physical Exam Vitals reviewed. Constitutional: Appearance: She is not ill-appearing. Cardiovascular: Rate and Rhythm: Normal rate and regular rhythm. Heart sounds: Murmur heard. Pulmonary: Effort: Pulmonary effort is normal. Breath sounds: Normal breath sounds. No wheezing, rhonchi or rales. Neurological: Mental Status: She is alert. Health maintenance reviewed with patient: Dilated Retinal Exam due on 05/30/2018 BP Controlled (<130/80) due on 08/14/2019 Shingrix Vaccine(2 of 2) due on 07/09/2020 Mammogram Screening due on 07/05/2023 Hepatitis B Vaccine(1 of 3 - Risk Dialysis 4-dose series) due on 09/20/2023 Hepatitis A Vaccine(1 of 2 - Risk 2-dose series) due on 09/20/2023 Covid-19 Vaccine(3 - Pfizer series) due on 02/24/2024 DTaP,Tdap,Td Vaccine(2 - Td or Tdap) due on 06/12/2024 HbA1C due on 08/25/2023 Diabetic Foot Exam due on 09/20/2023 LDL Cholesterol due on 02/24/2024 Hemoglobin/Hematocrit due on 02/24/2024 Serum Creatinine due on 04/10/2024 Annual PCP Team Chronic Disease Visit due on 06/12/2024 Pap Testing due on 11/06/2024 HPV Testing due on 11/16/2024 Colorectal Cancer Screening due on 11/15/2025 Pneumococcal Vaccine(4 - PPSV23 or PCV20) due on 01/19/2029 Influenza Vaccine Completed Hepatitis C Screening Completed HIV Screening Completed DATA REVIEWED: Most recent labs ASSESSMENT/PLAN: 1. Controlled type 2 diabetes mellitus without complication, with long-term current use of insulin (HCC) - ICD9: 250.00, V58.67, ICD10: E11.9, Z79.4 (primary diagnosis) - Control undetermined, due for labs - Continue current medications - Follow up in 4 months, sooner should any other issues arise. - LEVEMIR FLEXTOUCH U-100 INSULIN 100 UNIT/ML (3 ML) SUBCUTANEOUS PEN 2. ESRD on dialysis (HCC) - ICD9: 585.6, V45.11, ICD10: N18.6, Z99.2 Stable 3. Encounter for screening mammogram for breast cancer - ICD9: V76.12, ICD10: Z12.31 - KUNAL SCREENING Prescription instructions reviewed with patient as applicable. Potential red flag symptoms discussed with the patient. Reviewed appropriate action plan to take if red flag symptoms occur. Patient agreeable to treatment plan. Ifeoma Schneider APRN.HIGH FREQUENCY MILL OPERATOR documented in this encounterMi[facility]10[facility] History of Present illness Narrative* Syeda Frost RN - 06/06/2023 5:48 PM EDT CDM Telephonic Outreach Provider Action/FYI CDM: CKD ESRD Spk with Pt she noted Adm 05/31/23-06/06/23 to [facility] outside hospital for a Hernia repair, Instructed to call surgeon/ PCP with signs of infection or symptom concerns or needs.. Contacted for: Routine Telephonic Outreach Contact made with patient: Yes Patient identified by name and date of . Discussed care with patient Are you experiencing any new or worsening symptoms you need to talk about today? 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 Routed to: No Action Needed JEANNETTE Education Provided this Outreach: No Syeda Frost RN June 06, 2023 5:50 PM documented in this encounterMi[facility]10-[facility]-2023 Miscellaneous Notes* Telephone Encounter - Sanjana Berger - 06/06/2023 11:58 AM EDT Dialysis Center Name: [facility] Dialysis Center Contact (Name/Number): [phone] Was patient able to dialyze: YES Days/Times patients dialyzes:MWF Does the patient have a thrill:YES Type of Access: AV GRAFT Location (LUE/RUE/etc):RUE Problem:ARM SWELLING UNABLE TO BEND FINGERS Recent Intervention (within 30 days): NO Patient location & phone number (care home): HOME Is the patient on asa/blood thinners:NO Patient s [facility] Vascular Surgeon: JUAN F Milner (can patient be scheduled for fistulogram or sent to ER) FISTULAGRAM documented in this encounterMi[facility]09-25-2023 Miscellaneous Notes* Telephone Encounter - Treva Nguyen LPN - 05/29/2023 12:34 PM EDT Patient requesting that this be sent to a different pharmacy. Last office visit: 02/23/23 Next appointment scheduled: No future appointments scheduled at this time. Last labs: 04/10/23 documented in this encounterMi[facility] Hospital08-12-2023 Miscellaneous Notes* Telephone Encounter - Artemio Schafer MD - 04/15/2023 10:39 AM EDT Okayed * Telephone Encounter - Glenna Griffith RN - 04/15/2023 10:22 AM EDT Patient is out of pen needles. Last Office Visit: 02/23/2023 Future Office Visit: 06/27/2023 Requested Prescriptions Pending Prescriptions Disp Refills insulin needles, DISPOSABLE, (PEN NEEDLE) 31 gauge x 5/16 100 Each 3 Sig: Use one needle per dose. one per day. Date of Last Labs: 02/23/2023 documented in this encounterMiami [facility] Hospital08-08-2023 History of Present illness Narrative* Syeda Frost RN - 04/11/2023 3:06 PM EDT CDM Telephonic Outreach Provider Action/FYI CDM: CKD, ESRD on Dialysis 04/10/23 Pt underwent a PERC THROMBECTOMY/INFUSION FOR THROMBOLYSIS AV FISTULA 04/11/23 Spk with Pt she denies pain, swelling or bleeding at Right upper arm fistula site, maintaining 32 oz fluid limit Denies symptom concerns or needs Contacted for: Routine Telephonic Outreach Contact made with patient: Yes Patient identified by name and date of . Discussed care with patient Are you experiencing any new or worsening symptoms you need to talk about today? No Disease Specific Do you check your blood pressure at home? Yes, Enter readings: Not taken Do you have new or worsening shortness of breath with activity? No Do you feel like you are dehydrated for any reason, including not being able to eat or drink normally, or having less urine/much darker urine than normal for you? No Do you check your daily weight at home? Yes, Have you noticed a sudden gain in weight greater than three pounds in a day or three pounds in a week? 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 Routed to: No Action Needed JEANNETTE Education Provided this Outreach: No Syeda Frost RN April 11, 2023 3:08 PM documented in this encounterMi[facility] Hospital08-04-2023 Miscellaneous Notes* Telephone Encounter - Tessa Ludwig - 04/07/2023 12:02 PM EDT Spoke with patient and gave her an arrival time of 12:00 PM. She is aware to arrive at [facility] for EKG and BMP. She is aware she will need a six horse hitch driver and NPO for 6 hours prior to procedure and ok to takeBP pills in the morning with a sip of water. Tessa Ludwig documented in this encounterMi[facility]08-02-2023 Miscellaneous Notes* Telephone Encounter - Sanjana Berger - 04/05/2023 3:33 PM EDT Dialysis Center Name[facility] Contact (Name/Number): TARYN [phone] Was patient able to dialyze: YES Days/Times patients dialyzes:MWF Does the patient have a thrill:YES Type of Access: LOOP GRAFT Location (LUE/RUE/etc):RIGHT ARM Problem:TIGHNESS ABOVE GRAFT, HIGH VENOUS PRESSURE,DIMISNHED BRUIT/THRILL Recent Intervention (within 30 days): NO Patient location & phone number (care home): HOME Is the patient on asa/blood thinners:NO Patient s [facility] V[facility] Surgeon: JUAN F Milner (can patient be scheduled for fistulogram or sent to ER) FISTULAGRAM documented in this encounterMi[facility]06-23-2023 History of Present illness Narrative* Syeda Frost RN - 02/24/2023 11:32 AM EDT CDM Telephonic Outreach Provider Action/FYI CDM: ESRD Spk with Pt she reports had Left eye cataract surgery completed, swelling and vision is improving. Pt denies symptom concerns or needs CKD Jeannette education sent, Goals completed Contacted for: Routine Telephonic Outreach Contact made with patient: Yes Patient identified by name and date of . Discussed care with patient Are you experiencing any new or worsening symptoms you need to talk about today? No Disease Specific Do you check your blood pressure at home? Yes, Enter readings: Not available Do you have new or worsening shortness of breath with activity? No Do you feel like you are dehydrated for any reason, including not being able to eat or drink normally, or having less urine/much darker urine than normal for you? No Do you check your daily weight at home? Yes, Have you noticed a sudden gain in weight greater than three pounds in a day or three pounds in a week? 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 Routed to: No Action Needed JEANNETTE Education Provided this Outreach: Yes Syeda Frost RN February 24, 2023 11:34 AM documented in this encounterMi[facility] Hospital06-01-2023 History of Present illness Narrative* Syeda Frost RN - 02/02/2023 2:09 PM EDT CDM Telephonic Outreach Provider Action/FYI CDM: ESRD Spk with spouse he noted Sandy had surgery on her graph site yesterday and is resting. Denies feveror chills or signs of infection. Denies needs or concerns Contacted for: Routine Telephonic Outreach Contact made with patient: Yes Patient identified by name and date of . Discussed care with spouse Are you experiencing any new or worsening symptoms you need to talk about today? No Disease Specific Do you check your blood pressure at home? Yes, Enter readings: Checked at Dialysis 3x week Do you have new or worsening shortness of breath with activity? No Do you feel like you are dehydrated for any reason, including not being able to eat or drink normally, or having less urine/much darker urine than normal for you? No Do you check your daily weight at home? Yes, Have you noticed a sudden gain in weight greater than three pounds in a day or three pounds in a week? 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 Routed to: No Action Needed JEANNETTE Education Provided this Outreach: No Syeda Frost RN February 02, 2023 2:12 PM * Syeda Frost RN - 02/01/2023 11:01 AM EDT CDM Telephonic Outreach Provider Action/FYI CDM: ESRD Left a message to verify symptom status, instructed to call PCP with any changes in condition or needs. Contacted for: Routine Telephonic Outreach Contact made with patient: No, left message. Syeda Frost RN February 01, 2023 11:02 AM documented in this encounterMiami Valley Hospital06-01-2023 NoteORIGINAL PROCEDURE: IR ANGIOGRAM ARTERIOVENOUS SHUNT02/01/2023 3:02 pm 1. Fistulogram with fluoroscopy 2. Ultrasound guidance for vascular access 3. Balloon dilatation of critical stenosis of venous outflow central and peripheral 4. Brachial artery angiogram SEDATION: Moderate sedation with Versed and fentanyl under my supervision and with cardiorespiratory monitoring performed by independent nursing personnel. Dosages recorded separately. SEDATION TIME: 82 minutes HEPARIN: 3000 units IV ACCESS SITE: AV fistula FLUORO (min): 9.9 AIR KERMA DOSE (mGy): 40 CONTRAST: 48 mL, Omni 300 MATERIALS: 7 Fr sheath Micropuncture Stiff Glidewire Inflator [place] balloons: 7 x 60 Con Quest 8 x 40 The procedure, risks, and alternatives, were discussed with the patient and all questions were answered. Written informed consent obtained. Procedure was performed using a cap, sterile gown, sterile gloves, a large sterile sheet, hand hygiene and hospital-approved cutaneous antisepsis. The patient was positioned supine on the table and prepped and draped in usual sterile fashion. A time out was performed. IV antibiotics, clindamycin was administered prior to the procedure. Ultrasound of the extremity demonstrates vessel patency and appropriate forward flow. An image was obtained. After local anesthesia administration, the vessel was punctured with a micropuncture kit directed toward the venous outflow under live US guidance. A documentation image was obtained. Digital subtraction angiography (DSA) was performed using the 4 Fr micropuncture sheath. Images demonstrate Z configuration of the graft-basilic vein anastomosis. Using a series of catheters and guidewires a 7 [place] sheath was placed and guided to the region of the abnormal anastomotic junction. This was rib across with an angled Glidewire and catheter. There is a severe stenosis at the confluence of the axillary vein. There is a valve present and subclavian vein demonstrates a subtotal stenosis. The superior vena cava is severely narrowed. The proximal inferior vena cava was selected using the catheter and an Amplatz guidewire was placed. Using a 7 x 60 balloon angioplasty of the superior vena cava subclavian vein and axillary veins were performed 4 3 minute intervals. Residual narrowing was observed. An 8 x 40 Conquest balloon was advanced across the stenosis and prolonged inflations were performed. Post angioplasty images were obtained. The critical stenoses of the axillary and subclavian veins were widened and the superior vena cava was widened without signs of complication. A reflux DSA demonstrates wide patency of the anastomosis and artery. IV Heparin was administered. Over a wire, the micropuncture sheath was exchanged for a working sheath. Over the wire, a balloon catheter was advanced to the region of the stenosis. Balloon dilatation was performed and the catheter was removed. Inflation time was 3 minutes. DSA through the sheath demonstrates no significant residual stenosis. The sheath was removed and hemostasis obtained with manual compression and 2-0 Ethilon. Sterile dressing was applied. COMPLICATIONS: None EBL: Minimal PATIENT CONDITION: Stable, unchanged. HISTORY: ORDERING SYSTEM PROVIDED HISTORY: Reason for Exam: CENRAL STENOSIS IMPRESSION: 1. Subtotal stenosis at the axillary vein confluence with angioplasty to 8 mm 2. Subtotal stenosis of the subclavian vein with angioplasty to 8 mm 3. 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 4. Successful uncomplicated balloon dilatation of the stenosis with no significant residual stenosis. 5. Patent central veins and anastomosis. 6. Patent arterial anastomosis Interpreted by: Aggie Rodriguez Preliminary Report By: Aggie Rodriguez Electronically signed By Aggie Rodriguez Dictated Date: 02/02/2023 1:35:32 AM Prelim Date: 02/02/2023 1:44:23 AM Sign Date: 02/02/2023 1:44:23 AM Ordering Provider: [facility] ([facility])02-02-2023 Note ORIGINAL PROCEDURE: IR ANGIOGRAM ARTERIOVENOUS SHUNT02/01/2023 3:02 pm 1. Fistulogram with fluoroscopy 2. Ultrasound guidance for vascular access 3. Balloon dilatation of critical stenosis of venous outflow central and peripheral 4. Brachial artery angiogram SEDATION: Moderate sedation with Versed and fentanyl under my supervision and with cardiorespiratory monitoring performed by independent nursing personnel. Dosages recorded separately. SEDATION TIME: 82 minutes HEPARIN: 3000 units IV ACCESS SITE: AV fistula FLUORO (min): 9.9 AIR KERMA DOSE (mGy): 40 CONTRAST: 48 mL, Omni 300 MATERIALS: 7 Fr sheath Micropuncture Stiff Glidewire Inflator [place] balloons: 7 x 60 Con Quest 8 x 40 The procedure, risks, and alternatives, were discussed with the patient and all questions were answered. Written informed consent obtained. Procedure was performed using a cap, sterile gown, sterile gloves, a large sterile sheet, hand hygiene and hospital-approved cutaneous antisepsis. The patient was positioned supine on the table and prepped and draped in usual sterile fashion. A time out was performed. IV antibiotics, clindamycin was administered prior to the procedure. Ultrasound of the extremity demonstrates vessel patency and appropriate forward flow. An image was obtained. After local anesthesia administration, the vessel was punctured with a micropuncture kit directed toward the venous outflow under live US guidance. A documentation image was obtained. Digital subtraction angiography (DSA) was performed using the 4 Fr micropuncture sheath. Images demonstrate Z configuration of the graft-basilic vein anastomosis. Using a series of catheters and guidewires a 7 Eritre[place] sheath was placed and guided to the region of the abnormal anastomotic junction. This was rib across with an angled Glidewire and catheter. There is a severe stenosis at the confluence of the axillary vein. There is a valve present and subclavian vein demonstrates a subtotal stenosis. The superior vena cava is severely narrowed. The proximal inferior vena cava was selected using the catheter and an Amplatz guidewire was placed. Using a 7 x 60 balloon angioplasty of the superior vena cava subclavian vein and axillary veins were performed 4 3 minute intervals. Residual narrowing was observed. An 8 x 40 Conquest balloon was advanced across the stenosis and prolonged inflations were performed. Post angioplasty images were obtained. The critical stenoses of the axillary and subclavian veins were widened and the superior vena cava was widened without signs of complication. A reflux DSA demonstrates wide patency of the anastomosis and artery. IV Heparin was administered. Over a wire, the micropuncture sheath was exchanged for a working sheath. Over the wire, a balloon catheter was advanced to the region of the stenosis. Balloon dilatation was performed and the catheter was removed. Inflation time was 3 minutes. DSA through the sheath demonstrates no significant residual stenosis. The sheath was removed and hemostasis obtained with manual compression and 2-0 Ethilon. Sterile dressing was applied. COMPLICATIONS: None EBL: Minimal PATIENT CONDITION: Stable, unchanged. HISTORY: ORDERING SYSTEM PROVIDED HISTORY: Reason for Exam: CENRAL STENOSIS IMPRESSION: 1. Subtotal stenosis at the axillary vein confluence with angioplasty to 8 mm 2. Subtotal stenosis of the subclavian vein with angioplasty to 8 mm 3. 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 4. Successful uncomplicated balloon dilatation of the stenosis with no significant residual stenosis. 5. Patent central veins and anastomosis. 6. Patent arterial anastomosis Interpreted by: Aggie Rodriguez Preliminary Report By: Aggie Rodriguez Electronically signed By Aggie Rodriguez Dictated Date: 02/02/2023 1:35:32 AM Prelim Date: 02/02/2023 1:44:23 AM Sign Date: 02/02/2023 1:44:23 AM Ordering Provider: [facility]SUF CROW [id number] Discharge instructions Patient Education 02/01/2023 15:39:23 Moderate Conscious Sedation, Adult, Care After Moderate Conscious Sedation, Adult, Care After These instructions provide you with information about caring for yourself after your procedure. Your health care provider may also give you more specific instructions. Your treatment has been plannedaccording to current medical practices, but problems sometimes occur. Call your health care provider if you have any problems or questions after your procedure. What can I expect after the procedure? After your procedure, it is common: To feel sleepy for several hours. To feel clumsy and have poor balance for several hours. To have poor judgment for several hours. To vomit if you eat too soon. Follow these instructions at home: For at least 24 hours after the procedure: Do not: ?Participate in activities where you could fall or become injured. ?Drive. ?Use heavy machinery. ?Drink alcohol. ?Take sleeping pills or medicines that cause drowsiness. ?Make important decisions or sign legal documents. ?Take care of children on your own. Rest. Eating and drinking Follow the diet recommended by your health care provider. If you vomit: ?Drink water, juice, or soup when you can drink without vomiting. ?Make sure you have little or no nausea before eating solid foods. General instructions Have a responsible adult stay with you until you are awake and alert. Take xsak-oqy-kclofpa and prescription medicines only as told by your health care provider. If you smoke, do not smoke without supervision. Keep all follow-up visits as told by your health care provider. This is important. Contact a health care provider if: You keep feeling nauseous or you keep vomiting. You feel light-headed. You develop a rash. You have a fever. Get help right away if: You have trouble breathing. This information is not intended to replace advice given to you by your health care provider. Make sure you discuss any questions you have with your health care provider. Document Released: 06/11/2014 Document Revised: 08/03/2018 Document Reviewed: 12/10/2016 [employer] Patient Education 2020 [employer]. 02/01/2023 15:39:21 3- Fistulogram ([facility]) 10/2019 (CUSTOM) Fistulogram Discharge Instructions This information has been developed to provide you with written guidelines to supplement the verbalinstructions your doctor has reviewed with you. It is very important that you follow any additionalinstructions your doctor has provided. ACTIVITY Rest the remainder of the day. You may resume your normal activity tomorrow. You may bathe/shower after 24 hours No heavy listing, pushing or straining. Do not operate heavy machinery, drive or make legal decisions for 24 hours after your procedure. Someone must drive you home WOUND CARE Apply pressure to the site if bleeding excessively and call your physician or if unavailable, go [facility] emergency department. There will be a small dressing over the site. The dressing will be removed at your next dialysis appointment. Wash incision with soap and water If there is a suture in place, an order will be faxed to your dialysis center for removal at your next dialysis treatment. Some bruising, swelling, and discomfort is normal CALL YOUR DOCTOR FOR: Increased redness or inflammation at the site Fever or chills that you cannot connect to a cold or flu Drainage or pus from the incision SEEK IMMEDIATE MEDICAL CARE IF: You have symptoms of a heart attack such as chest pain, trouble breathing, nausea or vomiting You have symptoms of a stroke such as weakness, numbness or drooping of one side of your body, confusion, difficulty speaking, a severe headache or vision loss. Lightheadedness, dizziness or fainting. Bleeding from the site that cannot be controlled by applying pressure to the site. If you have any questions, please call your doctor at the number listed on your follow up instructions. Follow all instructions given to you by your doctor Follow Up Care 01/13/2023 13:23:09 With:YOUSUF CROW DO Address: [facility] [place] [place] [address]- When: Unknown Comments:Follow-up as scheduled With:Call Physician Referral Address:Unknown When: Unknown [facility] 05-31-2023 Summary of episode note Discharge Instructions Thank you for allowing [facility] to assist you with your healthcare needs. The following is importantdischarge information regarding your hospital visit. Your Care Team MALDONADO RAZA MD What to do next Follow Up Appointments Follow Up with YOUSUF CROW DO When Why: Follow-up as scheduled Where: [facility] [place] [place] [address]- Follow Up with Call Physician Referral When Allergies Latex (Rash) codeine penicillin (codeine) Medications Please ask your primary doctor or pharmacist before taking any other medication not listed, including over the counter drugs, herbal medications, vitamins and or supplements as they may interact withyour home medications. What How Much When Instructions Last Dose Unchanged amLODIPine (amLODIPine 10 mg oral tablet) 1 tab(s) by mouth Once a day Unchanged aspirin (Aspir-Low 81 mg oral delayed release tablet) 1 tab(s) by mouth Once a day Unchanged atorvastatin (atorvastatin 40 mg oral tablet) 1 tab(s) by mouth Once a day Unchanged cloNIDine (cloNIDine 0.3 mg oral tablet) 1 tab(s) by mouth Two (2) times a day Unchanged ferric citrate (Auryxia 210 mg oral tablet) 3 tab(s) by mouth Three (3) times a day with meals Unchanged insulin aspart (Novolog) (NovoLOG 100 units/ mL injectable solution) 10 unit(s) Subcutaneous Three (3) times a day before meals Unchanged insulin detemir (Levemir) (Levemir FlexTouch 100 units/ mL 3 mL Pen) 54 unit(s) Subcutaneous Daily at bedtime Unchanged levothyroxine (levothyroxine 112 mcg (0.112 mg) oral tablet) 1 tab(s) by mouth Once a day Unchanged lisinopril (lisinopril 20 mg oral tablet) 1 tab(s) by mouth Two (2) times a day Unchanged multivitamin (Kenneth-Petey oral tablet) 1 tab(s) by mouth Once a day Please take this list to your next doctor s visit. Bring all medications you take, including over the counter medications, herbals and other supplements with you to your doctor s visit. Patients and families are reminded to discard old lists and to update any records with all medication providers or retail pharmacies. Education Materials Moderate Conscious Sedation, Adult, Care After These instructions provide you with information about caring for yourself after your procedure. Your health care provider may also give you more specific instructions. Your treatment has been plannedaccording to current medical practices, but problems sometimes occur. Call your health care provider if you have any problems or questions after your procedure. What can I expect after the procedure? After your procedure, it is common: To feel sleepy for several hours. To feel clumsy and have poor balance for several hours. To have poor judgment for several hours. To vomit if you eat too soon. Follow these instructions at home: For at least 24 hours after the procedure: Do not: ? Participate in activities where you could fall or become injured. ? Drive. ? Use heavy machinery. ? Drink alcohol. ? Take sleeping pills or medicines that cause drowsiness. ? Make important decisions or sign legal documents. ? Take care of children on your own. Rest. Eating and drinking Follow the diet recommended by your health care provider. If you vomit: ? Drink water, juice, or soup when you can drink without vomiting. ? Make sure you have little or no nausea before eating solid foods. General instructions Have a responsible adult stay with you until you are awake and alert. Take pbpj-auv-gfbrdfr and prescription medicines only as told by your health care provider. If you smoke, do not smoke without supervision. Keep all follow-up visits as told by your health care provider. This is important. Contact a health care provider if: You keep feeling nauseous or you keep vomiting. You feel light-headed. You develop a rash. You have a fever. Get help right away if: You have trouble breathing. This information is not intended to replace advice given to you by your health care provider. Make sure you discuss any questions you have with your health care provider. Document Released: 06/11/2014 Document Revised: 08/03/2018 Document Reviewed: 12/10/2016 [employer] Patient Education 2020 [employer]. Fistulogram Discharge Instructions This information has been developed to provide you with written guidelines to supplement the verbalinstructions your doctor has reviewed with you. It is very important that you follow any additionalinstructions your doctor has provided. ACTIVITY Rest the remainder of the day. You may resume your normal activity tomorrow. You may bathe/shower after 24 hours No heavy listing, pushing or straining. Do not operate heavy machinery, drive or make legal decisions for 24 hours after your procedure. Someone must drive you home WOUND CARE Apply pressure to the site if bleeding excessively and call your physician or if unavailable, go [facility] emergency department. There will be a small dressing over the site. The dressing will be removed at your next dialysis appointment. Wash incision with soap and water If there is a suture in place, an order will be faxed to your dialysis center for removal at your next dialysis treatment. Some bruising, swelling, and discomfort is normal CALL YOUR DOCTOR FOR: Increased redness or inflammation at the site Fever or chills that you cannot connect to a cold or flu Drainage or pus from the incision SEEK IMMEDIATE MEDICAL CARE IF: You have symptoms of a heart attack such as chest pain, trouble breathing, nausea or vomiting You have symptoms of a stroke such as weakness, numbness or drooping of one side of your body, confusion, difficulty speaking, a severe headache or vision loss. Lightheadedness, dizziness or fainting. Bleeding from the site that cannot be controlled by applying pressure to the site. If you have any questions, please call your doctor at the number listed on your follow up instructions. Follow all instructions given to you by your doctor Additional Information VACCINATE! IT SAVES LIVES! Members of the community who have not yet received the COVID-19 vaccine and would like to receive it can visit one of [facility] vaccine clinics. There are many vaccine clinic locations within the [facility]. For locations and available times, please visit [email or web address].[place].gov/. It is important to note that some COVID mobile vaccine clinics are held outdoors and may be canceled in rainy or stormy conditions. To learn more about pediatric vaccinations (ages 5-11), we invite you to visit the [facility] webpage. [email or web address]/[email or web address]-Htsdewtgkjg-Vcmciijwvo-[email or web address] stions.htmlTo learn more about the COVID-19 vaccine, we invite you to visit the CDC website for a list of frequently asked questions.https://www.cdc.gov/coronavirus/2019-ncov/vaccines/faq.html [employer] Patient Portal Access Instructions: Stay connected with your healthcare team and access your personal medical information anytime with the [employer] Patient Portal. Please follow the directions below to create your [employer] account: 1.Access the email account you provided upon registration to the hospital/physician office.2.Look for an invitation email from [facility].3.Open the email and access the invitation link: AcceptInvitation to [employer].4.Fill in the required reyes to create your account. To access your account, visit [facility]. Click the blue button labeled Access Patient Portal and then log in with the username and password that you created in the steps above. You will be able to view your test results, lab results, a summary of your visits, upcoming appointments and more. There is also a convenient messaging option where you can send secure messages to your p lashondavider. In addition, you will have the ability to download any documents or summaries to your computer and/or send the information securely to a physician. Remember that your healthcare information is confidential, so carefully consider who you will allowto register on the [facility] for access to your information. You can also access the [facility] on the [facility] shelley. Simply click on Patient Portal and then log into your account. If you would like to receive a full copy of your medical records, please contact the [facility] Medical Records Department by calling [phone], Monday through Monday between 8 a.m. and 4:30 p.m. HOW TO SAFELY DISPOSE OF PRESCRIPTION MEDICATIONS Please use one of the following methods to safely dispose of your unused medications. 1.Use a drug disposal kit: the drug disposal pouch allows you to safely discard your old and unuseddrugs. Ask your nurse to give you one when you are discharged.2.Visit a local take-back location: Many local pharmacies and police departments have programs that collect old and unwanted prescriptiondrugs. Call your local pharmacy or go to http://[facility].[employer]/4H3Qk3l to find one close to you.3.Make use of household items: Use cat litter or old coffee grounds to dispose medications if other options arenot available. Mix your drugs with these household products, seal them in an airtight container andthrow it into the garbage. Call [facility]: [phone] to be sure your drugs can be disposed of in this way. Some medicines may require a different approach.4.Never flush your medications down the toilet. IF YOU HAVE BEEN PRESCRIBED AN OPIOID FOR PAIN If you have been prescribed an opioid (such as hydrocodone, oxycodone or morphine), it is critical to understand the possible side effects and risks of opioid pain medications. Even when taken as directed, opioids can have several side effects including: Tolerance, meaning you might need to take more of a medication for the same pain relief. Nausea, vomiting and/or constipation. Sleepiness, dizziness, dry mouth, confusion, depression or itching. Physical dependence, meaning you have withdrawal symptoms when a medication is stopped, can develop within a few days. KNOW YOUR RESPONSIBILITIES It is important to know exactly how much and how often to take the opioid pain medications you are prescribed. Never take opioids in higher amounts or more often than prescribed. Do not combine opioids with alcohol or other drugs that cause drowsiness, such as benzodiazepines, also known as benzos, including diazepam and alprazolam, muscle relaxants or sleep aids. Never sell or share prescription opioids. This is illegal. Store opioids in a secure place and out of reach of others (including children, family, friends and visitors). The last page of this document has been signed and retained as a CHART COPY. Signatures Patient Education Materials Moderate Conscious Sedation, Adult, Care After 3- Fistulogram ([facility]) 10/2019 (CUSTOM) Medication Leaflets My discharge plan and instructions have been reviewed and explained to me and I,SANDY BHATTI understand my current condition and have read and understand these discharge instructions. I have received a written copy of the plan/instructions. If I have questions, I am aware that I should contact my doctor. Patient/[employer] Signature: Date/Time: Relationship to Patient: Witness Name/Signature: Date[facility]Time[id number] Discharge summary Date of Service 02/01/2023 Discharge Diagnosis SVC stenosis Hospital Course unremarkable Allergies Latex (Rash) codeine penicillin (codeine) Consults No qualifying data available. Objective Vitals and Measurements T: 36.6 C (Oral) HR: 76 RR: 16 BP: 132/57 SpO2: 98% HT: 160.0 cm WT: 64.5 kg BMI: 25.2 BMI: 25.2 Weight Dosing Weight: 64.5 kg (02/01/23) Code Status No qualifying data available. Admission Date 02/01/2023 Discharge Date 02/01/2023 Medications Unchanged amLODIPine (amLODIPine 10 mg oral tablet)1 tab(s) by mouth once a day. aspirin (Aspir-Low 81 mg oral delayed release tablet)1 tab(s) by mouth once a day. atorvastatin (atorvastatin 40 mg oral tablet)1 tab(s) by mouth once a day. cloNIDine (cloNIDine 0.3 mg oral tablet)1 tab(s) by mouth two (2) times a day. ferric citrate (Auryxia 210 mg oral tablet)3 tab(s) by mouth three (3) times a day with meals. insulin aspart (Novolog) (NovoLOG 100 units/mL injectable solution)10 unit(s) Subcutaneous three (3) times a day before meals. insulin detemir (Levemir) (Levemir FlexTouch 100 units/mL 3 mL Pen)54 unit(s) Subcutaneous daily atbedtime. levothyroxine (levothyroxine 112 mcg (0.112 mg) oral tablet)1 tab(s) by mouth once a day. lisinopril (lisinopril 20 mg oral tablet)1 tab(s) by mouth two (2) times a day. multivitamin (Kenneth-Petey oral tablet)1 tab(s) by mouth once a day. Follow Up Follow Up with Call Physician Referral When Follow Up Appointments No qualifying data available. Follow Up Labs/Studies Discharge Labs No Follow-up Labs Discharge Studies No Follow-up Studies Discharge Diet No qualifying data available. Discharge Activity No qualifying data available. Condition on Discharge good Readmission Risk/Palliative Score No qualifying data available. Discharge Disposition home Information Provided To Patient to return on Monday to have sutures removed. Digitally Signed by AGGIE RODRIGUEZ MD on 02/01/2023 03:38 PM [id number] Interventional radiology Consult note INTERVENTIONAL RADIOLOGY POST PROCEDURE NOTE DATE: 02/01/2023 15:14:58 NAME: SANDY BHATTI Pre-Procedure Diagnosis: _stenosed fistula Post Procedure Diagnosis: Same. Clay Digger: Dr. Harshal Rodriguez Procedure: _PTA of SVC and subclavian vein Anesthesia: Local with procedural sedation. Findings: Success. _PTA to 8 mm Estimated Blood Loss: Minimal (Less Than 10 mL). _ Specimen: None. Complications: None. _ Full report with procedural details to follow and will become available under the Radiology tab of Results Review. Please contact for any questions or concerns. Harshal Garcia MD Interventional Radiology IR dept: x [phone] Available on Cortext Digitally Signed by AGGIE RODRIGUEZ MD on 02/01/2023 03:15 PM [id number] Note ORIGINAL PROCEDURE: IR ANGIOGRAM ARTERIOVENOUS SHUNT02/01/2023 3:02 pm 1. Fistulogram with fluoroscopy 2. Ultrasound guidance for vascular access 3. Balloon dilatation of critical stenosis of venous outflow central and peripheral 4. Brachial artery angiogram SEDATION: Moderate sedation with Versed and fentanyl under my supervision and with cardiorespiratory monitoring performed by independent nursing personnel. Dosages recorded separately. SEDATION TIME: 82 minutes HEPARIN: 3000 units IV ACCESS SITE: AV fistula FLUORO (min): 9.9 AIR KERMA DOSE (mGy): 40 CONTRAST: 48 mL, Omni 300 MATERIALS: 7 Fr sheath Micropuncture Stiff Glidewire Inflator [place] balloons: 7 x 60 Con Quest 8 x 40 The procedure, risks, and alternatives, were discussed with the patient and all questions were answered. Written informed consent obtained. Procedure was performed using a cap, sterile gown, sterile gloves, a large sterile sheet, hand hygiene and hospital-approved cutaneous antisepsis. The patient was positioned supine on the table and prepped and draped in usual sterile fashion. A time out was performed. IV antibiotics, clindamycin was administered prior to the procedure. Ultrasound of the extremity demonstrates vessel patency and appropriate forward flow. An image was obtained. After local anesthesia administration, the vessel was punctured with a micropuncture kit directed toward the venous outflow under live US guidance. A documentation image was obtained. Digital subtraction angiography (DSA) was performed using the 4 Fr micropuncture sheath. Images demonstrate Z configuration of the graft-basilic vein anastomosis. Using a series of catheters and guidewires a 7 Eritrean sheath was placed and guided to the region of the abnormal anastomotic junction. This was rib across with an angled Glidewire and catheter. There is a severe stenosis at the confluence of the axillary vein. There is a valve present and subclavian vein demonstrates a subtotal stenosis. The superior vena cava is severely narrowed. The proximal inferior vena cava was selected using the catheter and an Amplatz guidewire was placed. Using a 7 x 60 balloon angioplasty of the superior vena cava subclavian vein and axillary veins were performed 4 3 minute intervals. Residual narrowing was observed. An 8 x 40 Conquest balloon was advanced across the stenosis and prolonged inflations were performed. Post angioplasty images were obtained. The critical stenoses of the axillary and subclavian veins were widened and the superior vena cava was widened without signs of complication. A reflux DSA demonstrates wide patency of the anastomosis and artery. IV Heparin was administered. Over a wire, the micropuncture sheath was exchanged for a working sheath. Over the wire, a balloon catheter was advanced to the region of the stenosis. Balloon dilatation was performed and the catheter was removed. Inflation time was 3 minutes. DSA through the sheath demonstrates no significant residual stenosis. The sheath was removed and hemostasis obtained with manual compression and 2-0 Ethilon. Sterile dressing was applied. COMPLICATIONS: None EBL: Minimal PATIENT CONDITION: Stable, unchanged. HISTORY: ORDERING SYSTEM PROVIDED HISTORY: Reason for Exam: CENRAL STENOSIS IMPRESSION: 1. Subtotal stenosis at the axillary vein confluence with angioplasty to 8 mm 2. Subtotal stenosis of the subclavian vein with angioplasty to 8 mm 3. 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 4. Successful uncomplicated balloon dilatation of the stenosis with no significant residual stenosis. 5. Patent central veins and anastomosis. 6. Patent arterial anastomosis Interpreted by: Aggie Rodriguez Preliminary Report By: Aggie Rodriguez Electronically signed By Aggie Rodriguez Dictated Date: 02/02/2023 1:35:32 AM Prelim Date: 02/02/2023 1:44:23 AM Sign Date: 02/02/2023 1:44:23 AM Ordering Provider: [facility]05-31-2023 Note IR Procedure Record Summary Primary Physician: AGGIE RODRIGUEZ MD Finalized Date/Time: 02/01/23 14:45:38 Pt. Name: SANDY BHATTI/Sex: 1965 Female Med Rec #: [id number] Physician: Financial #: [id number] Pt. Type: S Room/Bed: [facility] Admit/Disch: 02/01/23 10:51:06 - Institution: Allergies identified in patient's electronic medical record at time of printing on 02/01/23 Entry 1 Entry 2 Entry 3 Substance Latex codeine penicillin Reaction Type Allergy Allergy Allergy Last Modified By: Mau, JESSICA Hobson, RN Sandy Hobson, JESSICA Delgado 01/03/18 12:22:34 L 05/31/06 01:12:06 L 05/31/06 01:02:31 Case Attendance- IR Entry 1 Entry 2 Entry 3 Case Attendee AGGIE RODRIGUEZ MD, Jared Tech Maria EugeniaMoon valdivia Director Of Labor Relations Role Performed Primary Surgeon Circulating Technologist Scrub Technologist Details Time In 02/01/23 12:55:00 02/01/23 12:55:00 02/01/23 12:55:00 Time Out 02/01/23 14:48:00 02/01/23 14:48:00 02/01/23 14:48:00 Procedure/Preference IR Arteriogram AV Shunt IR Arteriogram AV Shunt IR Arteriogram AV Shunt Card Fistulogram SN Fistulogram SN Fistulogram SN Last Modified By: Inna Jared Tech Gauriemer, Jared Tech Craemer, Jared Tech 02/01/23 14:45:13 02/01/23 14:45:13 02/01/23 14:45:13 Entry 4 Case Attendee Beckie Walter RN Role Performed Procedure Nurse Details Time In 02/01/23 12:55:00 Time Out 02/01/23 14:48:00 Procedure/Preference IR Arteriogram AV Shunt Card Fistulogram SN Last Modified By: Inna Jared Tech 02/01/23 14:45:13 Radiology Procedures- IR Entry 1 Procedure/Preference IR Arteriogram AV Shunt Actual Procedure IR ARTERIOGRAM AV SHUNT Card Fistulogram SN FISTULOGRAM SN Primary Procedure Yes Primary Surgeon MICHAELAGGIE MD Anesthesia/Sedation Local, IV Sedation Type Additional Procedure Times Start 02/01/23 13:18:00 Stop 02/01/23 14:41:00 Specialty Service SN Radiology Procedure EBL 5 mL Last Modified By: Inna Jared Tech 02/01/23 14:43:33 Radiology Procedure Details - IR Entry 1 Radiology Sedation Case Times Sedation Start Time 02/01/23 13:19:00 Sedation Stop Time 02/01/23 14:41:00 Sedation Total Time 82 min Radiology - Fluid/Drainage Radiology Contrast Contrast Used? Yes Dose 48 mL Medication OMNIPAQUE 300 50ML 10/PK Y-530 [facility] [id number] Radiology Flouroscopy Fluoroscopy Used? Yes Fluoro Dose (mGy) 40 Fluoro Time 9.9 min Radiology Local Local Used? Yes Local Type: Lidocaine 2% Local Dose 1 mL Radiology Procedure Site Site/Location right upper arm Site Condition No complications Last Modified By: [place] AngellEcho Networkrichardquinten MangoPlate 02/01/23 14:43:23 General Case Data - IR Entry 1 Case Information Room AH IR 18 Case Level IR Level 3 Wound Class None Specialty SN Radiology Procedure ASA Class None Diagnosis Preop Diagnosis central stenosis Postop Same As Preop Yes Postop Diagnosis central stenosis Last Modified By: [email or web address] 02/01/23 13:18:25 Medication Administration- IR Entry 1 Entry 2 Entry 3 Medication benadryl versed fentanyl Time Administered 02/01/23 13:19:00 02/01/23 13:19:00 02/01/23 13:19:00 Route of Admin IV Push IV Push IV Push Dose 25mg 0.5mg 25mcg Volume VORB * *Verbal Order Read Back (VORB) is required for NON- PHYSICIAN administration of medications. Administered by No No No Physician? Administered by: Beckie Walter RN, Caitlin C RN Rodriguez, Caitlin C RN Verbal Order Read AGGIE RODRIGUEZ MD MICHAELAGGIE MD MICHAELAGGIE MD Back from: Last Modified By: Beckie Walter RN, Caitlin C RN Rodriguez, Caitlin C RN 02/01/23 14:09:53 02/01/23 14:09:53 02/01/23 14:09:53 Entry 4 Entry 5 Entry 6 Medication versed fentanyl versed Time Administered 02/01/23 13:33:00 02/01/23 13:33:00 02/01/23 14:06:00 Route of Admin IV Push IV Push IV Push Dose 0.5mg 25mcg 0.5mg Volume VORB * *Verbal Order Read Back (VORB) is required for NON- PHYSICIAN administration of medications. Administered by No No No Physician? Administered by: Beckie Walter RN, Caitlin C RN Rodriguez, Caitlin C RN Verbal Order Read AGGIE RODRIGUEZ MD MICHAEL, AGGIE Perez MD MICHAEL, AGGIE Perez MD Back from: Last Modified By: Beckie Walter RN, Caitlin C RN Rodriguez, Caitlin C RN 02/01/23 14:09:53 02/01/23 14:09:53 02/01/23 14:09:53 Entry 7 Entry 8 Entry 9 Medication fentanyl heparin heparin Time Administered 02/01/23 14:06:00 02/01/23 13:30:00 02/01/23 13:52:00 Route of Admin IV Push IV Push IV Push Dose 25mcg 1000 units 1000 units Volume VORB * *Verbal Order Read Back (VORB) is required for NON- PHYSICIAN administration of medications. Administered by No No No Physician? Administered by: Beckie Walter RN, Caitlin C RN Rodriguez, Caitlin C RN Verbal Order Read AGGIE RODRIGUEZ MDN, AGGIE MEDINAN, AGGIE Perez MD Back from: Last Modified By: Beckie Walter RN, Alexis Tech Craemer, Alexis Tech 02/01/23 14:09:53 02/01/23 14:42:29 02/01/23 14:42:29 Entry 10 Medication heparin Time Administered 02/01/23 14:25:00 Route of Admin Intra-arterial Dose 1000 units Volume VORB * *Verbal Order Read Back (VORB) is required for NON- PHYSICIAN administration of medications. Administered by Yes Physician? Administered by: AGGIE RODRIGUEZ MD Verbal Order Read Back from: Last Modified By: Jared Keith 02/01/23 14:42:29 Procedure Case Times- IR Entry 1 Patient In Procedure Patient In OR 02/01/23 12:55:00 Patient Out of OR 02/01/23 14:48:00 Procedure Start/Stop Procedure Start Time 02/01/23 13:18:00 Procedure Stop Time 02/01/23 14:41:00 Last Modified By: Jared Keith 02/01/23 14:45:12 Immediate Post Procedure Note - IR Entry 1 Immediate Post Yes Procedure Note displayed for Physician to review Closure Technique Closure Technique Other than Primary Last Modified By: Jared Keith 02/01/23 12:57:24 Immediate Post Procedure Note - IR Signed By: AGGIE RODRIGUEZ MD 02/01/23 14:41 Allergy Information- IR Entry 1 Allergies Reviewed? Yes Allergies Reviewed Patient With Last Modified By: Jared Keith 02/01/23 12:41:29 Radiology Protocols/Time Out- IR Entry 1 Preprocedure Clinician Verifies Correct patient ID When Clinically Confirmation of correct using name & date Indicated side(s) and site(s), or MRN, Accurate Correct diagnostic and procedure, complete radiology tests Informed Consent, H & P available, Required update immediately blood products, prior to procedure, if implants, devices applicable and/or special equipment available OR/Procedure Room/Bedside Time 02/01/23 13:18:00 Clinician Verifies Correct patient identity including EMR & records using name and date or medical record number, Accurate procedure consent form, Correct patient position, Necessary equipment is available, Anticipated non-routine events with surgical team (case duration, estimated blood loss, patient specific concerns)., Larios patient factors for recovery and management identified with surgical team. When Applicable Confirmation correct Team Members AGGIE RODRIGUEZ MD, side and site marked, Present for Time Out Jared Keith, Relevant images and Moon Del Cid results are properly Director Of Labor Relations, Jose Angel, labeled and Beckie Curry RN appropriately displayed, Alcohol based prep dry, Double verification of sterility indicators complete Instrument Sterility Team Members Moon Del Cid Verifying Sterility Director Of Labor RelationsInna De La Rosa Alexis Tech Procedure IR Arteriogram AV Shunt Fistulogram SN Last Modified By: Jared Keith 02/01/23 13:18:17 Skin Prep- IR Entry 1 Procedure IR Arteriogram AV Shunt Fistulogram SN Skin Prep Prep Area Arm Side Right, Lower By Moon Del Cid Prep Agents Chloraprep Director Of Labor Relations Hair Removal Method N/A Last Modified By: Jared Keith 02/01/23 12:56:50 Patient Positioning- IR Entry 1 Procedure IR Arteriogram AV Shunt Body Position OP Supine Fistulogram SN Feet Uncrossed? Yes Pressure Points Yes Checked Last Modified By: Jared Keith 02/01/23 12:56:58 Radiology Procedure Plan - IR Entry 1 Radiology - Nursing Care Plan Outcome Statement The patient Outcome Statement The patient receives demonstrates knowledge Cont. appropriate of the expected medication(s), safely responses to the administered during the operative/invasive perioperative/invasive procedure., The period., The patient is patient's value system, free from signs and lifestyle, ethnicity, symptoms of injury and culture are caused by extraneous considered, respected, objects (equipment, and incorporated in the instrumentation, perioperative plan of sponges, or sharps)., care., The patient is The patient is free free from signs and from signs and symptoms symptoms of infection., of electrical injury., The patient is free The patient is at or from signs and symptoms returning to of injury related to normothermia at the positioning., The conclusion of the patient is free from immediate signs and symptoms of postoperative/invasive chemical injury. period. Radiology - Action Plan Outcomes Met? Yes Sales And Marketing Professional Beckie Walter RN Completing Procedure Plan Last Modified By: Jared Keith 02/01/23 12:59:03 Case Comments Finalized By: Jared Keith Document Signatures Signed By: Jared Keith 02/01/23 14:45 Jared Keith 02/01/23 14:45 [id number] Evaluation + Plan noteExtracted from: Title:IR pre procedure H&P Author:NIEVES GARCIA PA-C Date:02/01/23 Interventional Radiology Focused Preprocedure History/Physical Reason for Visit CENRAL STENOSIS History of Presenting Illness/Planned IR Procedure AV Fistula placed in right upper extremity on 10/17/2021. Patient has been having swelling in the right arm that started approximately 3 weeks ago. She had an angiogram approximately 2 weeks ago but was found to have a central stenosis and was sent to IR for further evaluation and treatment. Allergies (3) ActiveReaction codeineNone Documented LatexRash penicillincodeine Home Medications (10) Active amLODIPine 10 mg oral tablet 10 mg = 1 tab(s), Oral, qDay Aspir-Low 81 mg oral delayed release tablet 81 mg = 1 tab(s), Oral, qDay atorvastatin 40 mg oral tablet 40 mg = 1 tab(s), Oral, qDay Auryxia 210 mg oral tablet 630 mg = 3 tab(s), Oral, TIDM cloNIDine 0.3 mg oral tablet 0.3 mg = 1 tab(s), Oral, BID Levemir FlexTouch 100 units/mL 3 mL Pen 54 unit(s), Subcutaneous, qHS levothyroxine 112 mcg (0.112 mg) oral tablet 112 mcg = 1 tab(s), Oral, qDay lisinopril 20 mg oral tablet 20 mg = 1 tab(s), Oral, BID NovoLOG 100 units/mL injectable solution 10 unit(s), Subcutaneous, TIDAC Kenneth-Petey oral tablet 1 tab(s), Oral, qDay Problem List/Past Medical History Cataract Coronary artery disease Depression Diabetes mellitus type 2 Dialysis patient Glasses High blood pressure Hypercholesterolemia Hypothyroidism Migraine Surgical History Arteriovenous fistula: 09/05/17 Colostomy: 01/03/07 Colostomy: 01/03/06 Hysterectomy: 01/03/91 Appendectomy: 01/04/84 Cholecystectomy: 01/04/84 Family History Mother: Cancer; Diabetes mellitus; HTN - Hypertension; Heart disease Father: Cancer; Diabetes mellitus; HTN - Hypertension Sister: Diabetes mellitus Brother: Cancer; Diabetes mellitus; Renal failure Social History Alcohol Risk Assessment: Denies Alcohol Use; Details: Use: Never. Home/Environment Details: Living situation: Home with assistance. Nutrition/Health Details: Appetite Fair. Sexual Details: Self described orientation: Straight or heterosexual. Substance Abuse Risk Assessment: Denies Substance Abuse; Details: Use: Never. Tobacco Details: Nicotine Use: Former smoker, quit more than 30 days ago. Stopped at age: 50 Years. Physical Exam Vitals: Yyxljtjaaeu99.6 (11:24) Systolic Blood Skbldgra258 (11:24) Diastolic Blood Ucptkbfn08 (11:24) Pulse97 (11:24) BtW2503 (11:24) Respiratory Rate16 (11:24) General: Alert, cooperative. Fistula in RUE. Right arm mildly swollen. Positive pulse. Negative thrill. The remainder of the physical exam is noncontributory. Labs Anticoagulation Labs No qualifying data available. Last Month Hematology: Hgb: 9.6 (02/01/23) : () WBC: 5.0 (02/01/23) Platelet: 148 (02/01/23) PT International Ratio: ------ Additional - Last Month Basophil %: 0.6 (02/01/23) Basophil, Absolute: 0.0 (02/01/23) Eosinophil %: 0.9 (02/01/23) Eosinophil, Absolute: 0.0 (02/01/23) Hct: 28.4 (02/01/23) Lymphocyte %: 12.1 (02/01/23) Lymphocyte, Absolute: 0.6 (02/01/23) MCH: 32.5 (02/01/23) MCHC: 33.7 (02/01/23) MCV: 96.5 (02/01/23) Monocyte %: 8.0 (02/01/23) Monocyte, Absolute: 0.4 (02/01/23) MPV: 7.5 (02/01/23) Neutrophil %: 78.4 (02/01/23) Neutrophil, Absolute: 3.9 (02/01/23) RBC: 2.94 (02/01/23) RDW: 13.5 (02/01/23) Assessment/Treatment Plan Image guided fistulogram Post Procedure Discharge Plan Patient to be discharged home. _ [facility] 05-31-2023 Note Interventional Radiology Focused Preprocedure History/Physical Reason for Visit CENRAL STENOSIS History of Presenting Illness/Planned IR Procedure AV Fistula placed in right upper extremity on 10/17/2021. Patient has been having swelling in the right arm that started approximately 3 weeks ago. She had an angiogram approximately 2 weeks ago but was found to have a central stenosis and was sent to IR for further evaluation and treatment. Allergies (3) ActiveReaction codeineNone Documented LatexRash penicillincodeine Home Medications (10) Active amLODIPine 10 mg oral tablet 10 mg = 1 tab(s), Oral, qDay Aspir-Low 81 mg oral delayed release tablet 81 mg = 1 tab(s), Oral, qDay atorvastatin 40 mg oral tablet 40 mg = 1 tab(s), Oral, qDay Auryxia 210 mg oral tablet 630 mg = 3 tab(s), Oral, TIDM cloNIDine 0.3 mg oral tablet 0.3 mg = 1 tab(s), Oral, BID Levemir FlexTouch 100 units/mL 3 mL Pen 54 unit(s), Subcutaneous, qHS levothyroxine 112 mcg (0.112 mg) oral tablet 112 mcg = 1 tab(s), Oral, qDay lisinopril 20 mg oral tablet 20 mg = 1 tab(s), Oral, BID NovoLOG 100 units/mL injectable solution 10 unit(s), Subcutaneous, TIDAC Kenneth-Petey oral tablet 1 tab(s), Oral, qDay Problem List/Past Medical History Cataract Coronary artery disease Depression Diabetes mellitus type 2 Dialysis patient Glasses High blood pressure Hypercholesterolemia Hypothyroidism Migraine Surgical History Arteriovenous fistula: 09/05/17 Colostomy: 01/03/07 Colostomy: 01/03/06 Hysterectomy: 01/03/91 Appendectomy: 01/04/84 Cholecystectomy: 01/04/84 Family History Mother: Cancer; Diabetes mellitus; HTN - Hypertension; Heart disease Father: Cancer; Diabetes mellitus; HTN - Hypertension Sister: Diabetes mellitus Brother: Cancer; Diabetes mellitus; Renal failure Social History Alcohol Risk Assessment: Denies Alcohol Use; Details: Use: Never. Home/Environment Details: Living situation: Home with assistance. Nutrition/Health Details: Appetite Fair. Sexual Details: Self described orientation: Straight or heterosexual. Substance Abuse Risk Assessment: Denies Substance Abuse; Details: Use: Never. Tobacco Details: Nicotine Use: Former smoker, quit more than 30 days ago. Stopped at age: 50 Years. Physical Exam Vitals: Ubcaxeaopiz90.6 (11:24) Systolic Blood Chyheodi077 (11:24) Diastolic Blood Rszyolco68 (11:24) Pulse97 (11:24) AwA7647 (11:24) Respiratory Rate16 (11:24) General: Alert, cooperative. Fistula in RUE. Right arm mildly swollen. Positive pulse. Negative thrill. The remainder of the physical exam is noncontributory. Labs Anticoagulation Labs No qualifying data available. Last Month Hematology: Hgb: 9.6 (02/01/23) : () WBC: 5.0 (02/01/23) Platelet: 148 (02/01/23) PT International Ratio: ------ Additional - Last Month Basophil %: 0.6 (02/01/23) Basophil, Absolute: 0.0 (02/01/23) Eosinophil %: 0.9 (02/01/23) Eosinophil, Absolute: 0.0 (02/01/23) Hct: 28.4 (02/01/23) Lymphocyte %: 12.1 (02/01/23) Lymphocyte, Absolute: 0.6 (02/01/23) MCH: 32.5 (02/01/23) MCHC: 33.7 (02/01/23) MCV: 96.5 (02/01/23) Monocyte %: 8.0 (02/01/23) Monocyte, Absolute: 0.4 (02/01/23) MPV: 7.5 (02/01/23) Neutrophil %: 78.4 (02/01/23) Neutrophil, Absolute: 3.9 (02/01/23) RBC: 2.94 (02/01/23) RDW: 13.5 (02/01/23) Assessment/Treatment Plan Image guided fistulogram Post Procedure Discharge Plan Patient to be discharged home. _ Digitally Signed by JOSE GARCIA PA-C on 02/01/2023 12:30 PM [id number] History of Present illness Narrative* Syeda Frost RN - 01/02/2023 1:23 PM EDT CDM Telephonic Outreach Provider Action/FYI CDM: ESRD Spk with Pt she feels tired after Dialysis today, Denies new or worsening symptoms or needs Right forearm fistula patent and functioning, Pt denies concerns or needs Contacted for: Routine Telephonic Outreach Contact made with patient: Yes Patient identified by name and date of . Discussed care with patient Are you experiencing any new or worsening symptoms you need to talk about today? No Disease Specific Do you check your blood pressure at home? Yes, Enter readings: 115/80-90 Do you have new or worsening shortness of breath with activity? No Do you feel like you are dehydrated for any reason, including not being able to eat or drink normally, or having less urine/much darker urine than normal for you? No Do you check your daily weight at home? Yes, Have you noticed a sudden gain in weight greater than three pounds in a day or three pounds in a week? 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 Karthikeyan Akbar LPN * Telephone Encounter - Lisa Heredia PA-C - 12/19/2022 3:45 PM EDT Patient required colonoscopy as part of her preop workup to qualify for kidney transplant. Colonoscopy completed on 11/15/22. Patient requesting that results from recent colonoscopy including operative report and path results be faxed to Dr. Rocco Griffin at [facility], please send records documented in this encounterMiami [facility]04-17-2023 Instructions* Patient Instructions* Lisa Heredia PA-C - 12/19/2022 3:38 PM EDT The following instructions are important for you related to your office visit today with the [facility] General Surgeons. INSTRUCTIONS FOLLOWING A POLYP FOUND AT COLONOSCOPY You were found to have adenomatous and inflammatory colon polyps. I recommend you undergo repeat endoscopy in 3 years based on polyps and suboptimal bowel prep. If you note bleeding, change in bowel habits, or other suspicious colon related symptoms before that time, those symptoms should be evaluated as necessary. If you have any difficulties or concerns, you should contact our office immediately. If you note any additional difficulties, questions, or concerns, you should contact our office immediately @ [phone] and ask to be transferred to the General Surgery department. documented in this encounterMi[facility]04-17-2023 History of Present illness Narrative* Lisa Heredia PA-C - 12/19/2022 3:25 PM EDT FOLLOW UP VISIT - ENDOSCOPY NAME: Sandy Oneill Magy [facility] NO.: [id number] DATE OF SERVICE: 12/19/2022 : 1965 REFERRING PHYSICIAN: Maldonado Raza MD Sandy is a patient I am following for family history of colon cancer and need for high-risk screening colonoscopy. Dr. Fuller performed lower endoscopy on 11/15/22. The patient was found to have a tortuous colon, suboptimal bowel preparation, a cecal polyp and two small transverse colon polyps which were removed. Per surgeon three year follow up colonoscopy recommended due to poor quality bowel preparation. Pathology demonstrated: FINAL DIAGNOSIS A. Cecal polyp, biopsy: - Inflammatory-type polyp, negative for dysplasia. B. Transverse colon polyps, biopsies: - Fragments of tubular adenoma. - Melanosis coli. JEL 11/16/2022 The patient notes no complaints since the procedure. VITALS: Blood pressure (!) 150/44, pulse 100, temperature 36.4 C (97.6 F), height 160 cm (5' 3), weight 66.7 kg (147 lb), SpO2 98 %. General: patient is alert, cooperative, pleasant and in no acute distress On examination, the abdomen is benign. Assessment IMPRESSION: s/p colonoscopy with polypectomy, adenomatous and inflammatory polyps. Suboptimal bowelpreparation. Tortuous colon. Family history of colon cancer PLAN: The operative findings and pathology report were reviewed with the patient, and the patient has hadthe opportunity to ask questions and have questions answered. If the patient notes any problems or changes in bowel function, the patient should contact me immediately. Otherwise I recommend follow up endoscopy in 3 years based on polyps and prep. HM updated and recall letter generated. Patient verbalized understanding of all above and agreed with the plan Diagnoses: (D36.9) Tubular adenoma (primary encounter diagnosis) (Z80.0) Family history of colon cancer (Q43.8) Tortuous colon I spent a total of 24 minutes on the date of the service which included preparing to see the patient, [id number] patient care, completing clinical documentation, obtaining and/or reviewing separately obtained history, counseling and educating the patient/family/caregiver, independently interpretin g results (not separately reported), and communicating results to the patient/family/caregiver. Lisa Heredia PA-C documented [facility]23 Miscellaneous Notes* Telephone Encounter - Torri Rojas RN - 12/12/2022 5:16 PM EDT Patient has been identified by name and date of : Yes, Provider Luz Marina Date 12/12/22 Time 517pm Spouse phones for refill(s): Requested Prescriptions Pending Prescriptions Disp Refills cloNIDine HCl (CATAPRES) 0.3 mg tablet 90 tablet 1 Sig: Take 1 tablet by mouth daily at bedtime. atorvastatin (LIPITOR) 40 mg tablet 90 tablet 1 Sig: Take 1 tablet by mouth daily at bedtime. levothyroxine (SYNTHROID) 125 mcg tablet 90 tablet 1 Sig: Take 1 tablet by mouth once daily. Take on empty stomach. For Thyroid lisinopril (ZESTRIL) 40 mg tablet 90 tablet 1 Sig: Take 1 tablet by mouth once daily. Date of last office visit in primary care: Last 2 Encounter Wt Readings: Date: Wt: 11/15/2022 67.6 kg (149 lb) 09/20/2022 67.1 kg (148 lb) Previous labs/tests for medication: Not applicable Patient/Spouse only needs called if problem with refilling medication Please advise. Thank you. Torri Rojas RN documented in this encounter[facility]04-[facility]23 History of Present illness Narrative* Syeda Frost RN - 12/07/2022 5:10 PM EDT INSIGHT CDM TELEPHONIC OUTREACH Provider Action/FYI: CDM: CKD Spk with Pt she report at Dialysis BP 120/59 Denies symptoms, or needs. Instructed to call PCP with any changes in condition Pt verbalized understanding and appreciation for call. Contact made with patient: Yes Patient identified by name and . Discussed care with patient It s nice talking to you again. As a reminder, this is our bi-weekly check-in where I will be asking you questions about your health. This will only take a few minutes of your time. Is this a good time? Yes Symptoms What Chronic Disease(s) does the patient have: CKD Do you check your blood pressures at home? No Do you have new or worse shortness of breath with activity? No Do you feel like you are dehydrated for any reason, including not being able to eat or drink normally, or having less urine/much darker urine than normal for you? No Do you check your daily weight at home? Yes, Have you noticed a sudden gain in weight greater than three pounds in a day or three pounds in a week? No Are you having any other symptoms that your PCP needs to know about? No Symptoms: Symptom Escalation JEANNETTE Education Ordered -: No The patient required an escalation for symptom(s)? No Medications Do you have any questions about taking your medication or which medications you should be on? No Do you need any medication refills at this time, including any of the medications you might take only when needed? No Social We would like to make sure you have what you need so that your basic needs are met- including your personal safety, food, housing, transportation and medications? Would you like to speak with a social work user experience team lead to help give you support for any of these needs? No It can be normal to feel anxious or down during a time like this. Would you like to talk to a mental health professional about how you have been feeling? No Closing Thank you for taking the time to talk with me today. We want to work with you to ensure that we arekeeping your medical condition(s) well-controlled and to keep you healthy and out of the doctor's office or hospital. It s also not too late for me to sign you up for automated weekly questionnaires through [employer]. This is an easy way for us to stay connected each week. Are you interested? No, I understand. We can always sign you up in the future if you change your mind. Just as a reminder, will continue to call you every other week to check in on your health. Our calls should take 10-15 minutes or less. Remember, if you have concerns in between our calls, please call your PCP's office right away. Thank you. Enter next patient outreach date for two weeks on the same day of the week as today in the Track PtOutreach and End outreach. Syeda Frost RN December 07, 2022 5:10 PM documented in this encounterMi[facility]03-14-2023 History and physical note * Ge Fuller MD - 11/15/2022 9:00 AM EDT Images from the original note were not included. HISTORY AND PHYSICAL Sandy Bhatti 1965 REFERRING PHYSICIAN: Maldonado Raza MD CHIEF COMPLAINT: Consult (COLONOSCOPY) HPI: The patient is a 57 year old female referred for endoscopy. Sandy notes chronic constipation which she manages with a stool softener. Patient denies any change in bowel habits, weight changes, blood in stools, black tarry stools or abdominal pain. NOTES family history of colon cancer in a first-degree relative. The patient notes no upper GI complaints. Sandy has undergone prior endoscopy, per patient greater than 10 years ago. Previous colostomy which was reversed in '07 per records in [facility]. Patient's past medical history is significant for renal failure on hemodialysis, hypertension, hyperlipidemia, hypertrophic cardiomyopathy, ventricular tachycardia, type II diabetes mellitus. Patientfollows with Dr. Raza in primary care for her chronic medical conditions. Patient is currently being worked up to have a possible renal transplant and colonoscopy required as part of her preop testing. PAST MEDICAL HISTORY PAST MEDICAL HISTORY Diagnosis Date Acute kidney failure (HCC) 01/14/2018 Acute respiratory failure (HCC) Anxiety Arterial steal syndrome (HCC) 12/2018 Left AVF Calculus of ureter 06/12/2007 CKD (chronic kidney disease) stage V requiring chronic dialysis (HCC) 03/01/2018 Dr. Pendleton, nephrology. Constipation Depression 09/04/2006 GERD (gastroesophageal reflux disease) Hemorrhoids HTN (hypertension) 09/04/2001 Hyperlipidemia 09/04/1999 Hypertrophic cardiomyopathy (HCC) Proteinuria 06/14/2013 Renal colic 06/12/2007 Steal syndrome dialysis vascular access (HCC) 05/17/2019 Recent increased left arm swelling, which was not previously present. She had an intervention in January on the mid subclavian vein for outflow stenosis. Her fistula is patent and working well. Assessment: 05/16/19 LUE DRIL (proximal brachial to distal brachial artery bypass with RLE rGSV - LUE fistula site c/d/i, +thrill/bruit, radial pulse palpable - RLE Thyroid disorder Type II or unspecified type diabetes mellitus without mention of complication, not stated as uncontrolled 09/04/1985 VT (ventricular tachycardia) 05/17/2019 History: Per patient, has history of excited rhythm. Sees a housing quality standard inspector in [place], last seen in January 2019. No concerns. She will continue to follow up with them. Assessment: Ventricular tachycardiaintermittently post-op with HR up to 110s. No chest pain or SOB. Troponins sent to monitor. Labs WNL. ECG completed showing BBB (has had on intermittent previous ECG). - 05/17/19 repeat ECG back to PAST SURGICAL HISTORY PAST SURGICAL HISTORY Procedure Laterality Date APPENDECTOMY 1992 AV ANASTOMIES OPEN;BY BASILIC VEIN WINN Right 04/20/2020 transpose basilic vein fistula, R arm AV FISTULA OR GRAFT VENOUS Left 10/04/2017 AV FISTULA OR GRAFT VENOUS Left 09/20/2018 redo, failure to mature AV FISTULA OR GRAFT VENOUS Right 04/21/2021 BOWEL RESECTION HX 2006 CHOLECYSTECTOMY 1984 Cholecystectomy COLOSTOMY/SKIN LEVEL CECOSTOMY 2006 [id number], reversed 2006 CREATION OF AVF, PERCUTANEOUS USING MAGNETIC-GUIDED ARTERIAL AND VENOUS CATHETERS AND RADIOFREQUENCY ENERGY Right 11/14/2019 RIGHT AVF stage I EXPLORATORY LAPAROTOMY CELIOTOMY W/WO BIOPSY SPX 2006 Laparotomy, exp IR VENOUS FISTULAGRAM Left 01/22/2019 Left SC balloon PAST SURGICAL HISTORY OF Left 05/16/2019 JOHANNE DRSOILA (proximal brachial to distal brachial artery bypass with RLE rGSV REDUCTION OF LARGE BREAST 1989 SALPINGECTOMY OR OOPHERECTOMY-ECTOPIC 1985 SLING OPER STRES INCONTINENCE 1998 TOTAL ABDOMINAL HYSTERECT W/WO RMVL TUBE OVARY 1990 Hysterectomy, RUSSELL CURRENT MEDICATIONS Current Outpatient Medications Medication Sig insulin detemir U-100 (LEVEMIR FLEXTOUCH U-100 INSULIN) 100 unit/mL (3 mL) injection pen Inject 48 Units subcutaneously daily at bedtime. cloNIDine HCl (CATAPRES) 0.3 mg tablet Take 1 tablet by mouth daily at bedtime. SUMAtriptan (IMITREX) 50 mg tablet Take one tablet by mouth at onset of migraine. May repeat in 2 hours if ineffective insulin needles, DISPOSABLE, (PEN NEEDLE) 31 gauge x 5/16 Use one needle per dose. one per day. atorvastatin (LIPITOR) 40 mg tablet Take 1 tablet by mouth daily at bedtime. levothyroxine (SYNTHROID) 125 mcg tablet Take 1 tablet by mouth once daily. Take on empty stomach. For Thyroid Insulin Syringe-Needle U-100 (BD INSULIN SYRINGE ULTRA-FINE) 1 mL 29 gauge x 1/2 Use twice daily as directed. lisinopril (ZESTRIL, PRINIVIL) 40 mg tablet Take 1 tablet by mouth once daily. amLODIPine (NORVASC) 5 mg tablet Take 1 tablet by mouth once daily. insulin aspart U-100 (NOVOLOG FLEXPEN U-100 INSULIN) 100 unit/mL (3 mL) Inject 8 Units subcutaneously three times daily before meals. Add 1 unit for each 50 mg/dl above 150 peg 3350-Electrolytes (GOLYTELY) 236-22.74-6.74 -5.86 gram suspension Refer to printed prep instructions from your provider. ferric citrate 210 mg iron tab Take 1 tablet by mouth once daily. docusate sodium (COLACE) 100 mg capsule Take 1 capsule by mouth twice daily as needed for Constipation. nitroglycerin sublingual (NITROQUICK) 0.4 mg SL tablet Dissolve 0.4 mg under the tongue every 5 minutes as needed. NEPHRO-PETEY 0.8 mg tab Take 1 tablet by [...] No current facility-administered medications for this visit. ALLERGIES: Codeine, Latex, Penicillins, and Chlorhexidine PERSONAL HISTORY: SOCIAL HISTORY Social History Tobacco Use Smoking status: Former Packs/day: 1.50 Years: 3.00 Pack years: 4.50 Types: Cigarettes Quit date: 09/04/2005 Years since quittin.0 Smokeless tobacco: Never Tobacco comments: quit march 10 Vaping Use Vaping Use: Never used Substance Use Topics Alcohol use: No Drug use: No FAMILY HISTORY: FAMILY HISTORY FAMILY HISTORY Problem Relation Age of Onset Diabetes Mother Coronary Artery Disease Mother COPD Mother dec. age 79 Cancer Mother lung cancer Colon Cancer Father at age 52 Diabetes Sister Hypertension Sister Kidney Disease Brother other (Heart condition) Brother Diabetes Brother Cancer Brother lung cancer Coronary Artery Disease Brother dec. [place] 57 y.o. No Known Problems Maternal Grandmother No Known Problems Maternal Grandfather No Known Problems Paternal Grandmother No Known Problems Paternal Grandfather REVIEW OF SYMPTOMS: The review of systems data was entered by the nurse and reviewed by sd Nursing Notes: Estrella Pinedo LPN 09/20/2022 1:15 PM Signed REVIEW OF SYSTEMS: General: The patient denies fatigue, denies weight loss, denies weight gain, denies feeling hot, and denies feelings of cold. Eyes: The patient denies glaucoma, denies eye injury/surgery, wears glasses or contacts. Ear/Nose/Throat: The patient NOTES allergies, denies hayfever, denies ear infections, and denies bloody noses. Cardiovascular: The patient denies chest pain, denies heart disease, NOTES high blood pressure,denies cardiac stent, denies prior heart attack, denies irregular heart beat, denies high cholesterol, denies poor circulation, denies heart failure, other cardiac issues, denies claudication, denies coldfeet, denies peripheral arterial stent. Respiratory: The patient denies tuberculosis, denies pneumonia, denies frequent cough, denies pulmonary embolism, denies shortness of breath, and denies coughing up blood. Gastrointestinal: The patient denies difficulty swallowing, denies acid reflux, denies ulcers, denies vomiting, denies jaundice/hepatitis, denies gallbladder problems, denies black or tarry stools, denies hemorrhoids, denies bleeding from rectum, denies diverticulitis, denies constipation, denies diarrhea, denies loss of stool control, and NOTES hernias. Kidney/Bladder: The patient denies kidney stones, denies urine infections, and denies bloody urine. Skin: The patient denies a history of skin cancer, denies bleeding/changing moles, and denies a history of skin rash. Neurologic: The patient denies a history of epilepsy/convulsions, denies headaches, denies head/spinal injuries, and denies stroke/TIA. Psychiatric: The patient denies psychiatric medications, denies depression, and denies voices, denies substance abuse. Endocrine: The patient NOTES thyroid disorders, NOTES diabetes, and NOTES hormonal problems. Hematologic: The patient denies a history of bruising, denies bleeding, and denies anemia, denies blood clots. Infections: The patient denies a history of measles and mumps, denies rheumatic fever, and denies sexually transmitted diseases. Musculoskeletal: The patient denies back pain/injury, denies back problems, denies sciatica, deniesknee/foot trouble, denies arthritis, or denies gout. When was patient's last Mammogram screening? N/A Last Colonoscopy: 2006 Estrella Pinedo LPN I have confirmed and edited as necessary, the PFSH and ROS obtained by others. Lisa Heredia PA-C PHYSICAL EXAMINATION: General: The patient is 57 year old female, well nourished, well hydrated in no acute distress. Thepatient is oriented to time, place, and person. VITALS: Blood pressure 118/72, pulse 87, temperature 36.6 C (97.9 F), height 160 cm (5' 3), iieyhz69.9 kg (149 lb 12.8 oz), SpO2 95 %. Body mass index is 26.54 kg/m . HEENT: Normal cephalic, ataumatic, pupils are equally round, sclera are anicteric, mucous membranesare moist, oropharynx is clear. Neck has no masses, asymmetry or lymphadenopathy. Respiratory: Clear to auscultation and percussion. Normal respiratory excursion and pattern. Cardiac: Examination is regular rate and rhythm. Normal S1/S2 Abdominal exam: Soft, nontender, with no palpable masses. No hepatosplenomegaly. No palpable hernias. Extremities: no clubbing, cyanosis or edema. No adenopathy. LABORATORY VALUES: As Noted RADIOLOGIC STUDIES: As Noted Assessment IMPRESSION: encounter for screening colonoscopy. Multiple medical comorbidities PLAN: I have reviewed my findings with the surgeon. Will plan for upper and lower endoscopy. We discussed the risks and benefits of the planned endoscopy. I have informed the patient that complications can occur including failure to complete the endoscopy and perforation. The patient had the opportunity to ask questions concerning the planned endoscopy. My staff has also explained the procedure to the patient in understandable terms and has given the patient printed material concerning the procedure. The patient freely consents to surgery. The patient was offered a surgery/procedure [facility] facility. I have counseled the patient regarding the risk of exposure to and/or potential harm posed by the COVID-19 virus with having a surgery/procedure at this time versus the risk of delaying the surgery/procedure. It is not possible to know either the risk of delaying the surgery or procedure or chance of getting an infection with perfect accuracy, but a joint decision was made between the patient and myself to proceed at this time with endoscopy. I plan to use Golytely bowel preparation-split dose d/t renal function Patient instructed to contact PCP for instructions regarding diabetic medication, which may requireadjustment during bowel preparation and/or day of procedure The patient has medical comorbidities for which we will plan for the procedure to be performed under Monitored Anesthetic Care. The patient takes prescription medications which I feel decrease the chance of successful sedation,therefore we will plan for procedure to be done under Monitored Anesthetic Care. Diagnoses: (Z12.11) Encounter for screening for malignant neoplasm of colon (primary encounter diagnosis) (N18.6) ESRD (end stage renal disease) (HCC) (I47.20) VT (ventricular tachycardia) (I25.10) ASCVD (arteriosclerotic cardiovascular disease) (Z80.0) Family history of colon cancer Consultation requested by Dr. Raza for an opinion regarding screening colonoscopy. My final recommendations will be communicated back to the requesting physician by way of shared Medical record or letter to requesting physician via US mail. Lisa Heredia PA-C UPDATED HISTORY AND PHYSICAL EXAMINATION SERVICE DATE: 11/15/2022 SERVICE TIME: 9:11 AM PHYSICAL EXAM MUST BE COMPLETED ON ADMISSION The History and Physical (completed in the past 30 days) has been reviewed and the patient has beenexamined. The contents accurately reflect the patient's condition with the following additions or revisions since the H&P was completed. Examination indicates no changes. This H&P can be found in the attached. SIGNATURE: Ge Fuller III, MD PATIENT NAME: Sandy Bhatti DATE: November 15, 2022 TIME: 8:53 AM documented in this encounterMi[facility]03-13-2023 Miscellaneous Notes* Telephone Encounter - Edie Samayoa LPN - 11/14/2022 5:11 PM EDT Spoke to Sandy, given below instructions. Patient check with stock unloader. Edie Samayoa LPN * Telephone Encounter - Cheryl Hays MD - 11/12/2022 12:05 PM EST Noted, I do not think the golytely will cause any water retention or dehydration. She can confirm it with stock unloader but I think she could take it with out any issues. Regards, Cheryl Hays MD * Telephone Encounter - Lisa Mcdonough RN - 11/12/2022 11:40 AM EST Pts called and is notified of providers message and instructions. He voices understanding. He states he thinks she is doing a 2 day prep, so starting tomorrow. He said with her kidneys all this water isn't good and they were trying to get a hold of her Security Architect. Lisa Mcdonough RN * Telephone Encounter - Maldonado Raza MD - 11/12/2022 11:19 AM EST 1) On the day of the preparation, continue Novolog 8 units plus sliding scale TID with meals. 2) The night before colonoscopy, take a reduced dose of Levemir 28 units at bedtime. 3) The morning of colonoscopy, do not take Novolog since NPO. 4) Also hold the blood pressure medication amlodipine 5 mg for the procedure. * Telephone Encounter - Lisa Mcdonough RN - 11/11/2022 4:59 PM EST Pts called in to see how provider would want Pt to take her insulin with her bowel prep. Hestates she has a colonoscopy on Monday. documented in this encounterMi[facility]03-13-2023 History of Present illness Narrative* Syeda Forst RN - 11/14/2022 9:49 AM EDT INSIGHT CDM TELEPHONIC OUTREACH Provider Action/FYI: CDM: CKD / ESRD Spk with Pt denies symptoms, or needs. BP 132/60, wt 144 lbs, maintaining fluid limit. Pt is scheduled for Colonoscopy on 11/15/22. Instructed to call PCP with any changes in condition Pt verbalized understanding and appreciation for call. Contact made with patient: Yes Patient identified by name and . Discussed care with patient It s nice talking to you again. As a reminder, this is our bi-weekly check-in where I will be asking you questions about your health. This will only take a few minutes of your time. Is this a good time? Yes Symptoms What Chronic Disease(s) does the patient have: CKD Do you check your blood pressures at home? Yes, Enter readings: 132/60 Do you have new or worse shortness of breath with activity? No Do you feel like you are dehydrated for any reason, including not being able to eat or drink normally, or having less urine/much darker urine than normal for you? No Do you check your daily weight at home? Yes, Have you noticed a sudden gain in weight greater than three pounds in a day or three pounds in a week? No Are you having any other symptoms that your PCP needs to know about? No Symptoms: Symptom Escalation JEANNETTE Education Ordered -: No The patient required an escalation for symptom(s)? No Medications Do you have any questions about taking your medication or which medications you should be on? No Do you need any medication refills at this time, including any of the medications you might take only when needed? No Social We would like to make sure you have what you need so that your basic needs are met- including your personal safety, food, housing, transportation and medications? Would you like to speak with a social work user experience team lead to help give you support for any of these needs? No It can be normal to feel anxious or down during a time like this. Would you like to talk to a mental health professional about how you have been feeling? No Closing Thank you for taking the time to talk with me today. We want to work with you to ensure that we arekeeping your medical condition(s) well-controlled and to keep you healthy and out of the doctor's office or hospital. It s also not too late for me to sign you up for automated weekly questionnaires through [employer]. This is an easy way for us to stay connected each week. Are you interested? No, I understand. We can always sign you up in the future if you change your mind. Just as a reminder, will continue to call you every other week to check in on your health. Our calls should take 10-15 minutes or less. Remember, if you have concerns in between our calls, please call your PCP's office right away. Thank you. Enter next patient outreach date for two weeks on the same day of the week as today in the Track PtOutreach and End outreach. Syeda Frost RN November 14, 2022 9:49 AM documented in this encounterMi[facility]02-21-2023 History of Present illness Narrative* Tea Tierney MA - 10/25/2022 10:37 AM EST POPULATION HEALTH NAVIGATION OUTREACH Action/FYI LV no David messsge ANNUAL MEDICARE WELLNESS EXAM DILATED RETINAL EXAM due on 05/30/2018 COLORECTAL CANCER SCREENING due on 05/10/2019 Patient Identified by Name and : NO Outreach Outcome/Action Unable to reach patient: Left message Did you use a PCP flex slot to schedule this appointment? N/A Reason for Outreach Care Gap or Scheduling/Wellness visits Payer: Payor: MEDICARE / Plan: MEDICARE A AND B / Product Type: Medicare / Care Gap Reviewed:: Annual Wellness visit Colorectal Cancer Screening Diabetic Eye Exam Reminder: Reminder note to check Health Maintenance for items below Health Maintenance items due: DILATED RETINAL EXAM due on 05/30/2018 COLORECTAL CANCER SCREENING due on 05/10/2019 SHINGRIX VACCINE(2 of 2) due on 07/09/2020 DTAP,TDAP,TD(2 - Td or Tdap) due on 11/02/2022 Navigation Signature: Tea Tierney MA October 25, 2022 10:37 AM documented in this encounterMi[facility]02-09-2023 History of Present illness Narrative* Syeda Frost RN - 10/13/2022 1:01 PM EST INSIGHT CDM TELEPHONIC OUTREACH Provider Action/FYI: Updates routed to Dr. Luz Marina TERRELL: CKD / ESRD Pt noted she noted had an episode of dizziness related to dialysis, fell and sustained a bruise on left hip, no other injury, denies hip pain or difficulty walking. Sandy denies current dizziness, or feeling lightheaded or other symptoms, current BP 113/? Instructed to schedule PCP Appt to evaluate left hip, Pt will consider, Instructed on fall prevention Contact made with patient: Yes Patient identified by name and . Discussed care with patient It s nice talking to you again. As a reminder, this is our bi-weekly check-in where I will be asking you questions about your health. This will only take a few minutes of your time. Is this a good time? Yes Symptoms What Chronic Disease(s) does the patient have: CKD Do you check your blood pressures at home? Yes, Enter readings: 113/? Do you have new or worse shortness of breath with activity? No Do you feel like you are dehydrated for any reason, including not being able to eat or drink normally, or having less urine/much darker urine than normal for you? No Do you check your daily weight at home? Yes, Have you noticed a sudden gain in weight greater than three pounds in a day or three pounds in a week? No Are you having any other symptoms that your PCP needs to know about? No Symptoms: Dizziness, fall bruise on left him, denies pain Symptom Escalation JEANNETTE Education Ordered -: No The patient required an escalation for symptom(s)? No Medications Do you have any questions about taking your medication or which medications you should be on? No Do you need any medication refills at this time, including any of the medications you might take only when needed? No Social We would like to make sure you have what you need so that your basic needs are met- including your personal safety, food, housing, transportation and medications? Would you like to speak with a social work user experience team lead to help give you support for any of these needs? No It can be normal to feel anxious or down during a time like this. Would you like to talk to a mental health professional about how you have been feeling? No Closing Thank you for taking the time to talk with me today. We want to work with you to ensure that we arekeeping your medical condition(s) well-controlled and to keep you healthy and out of the doctor's office or hospital. It s also not too late for me to sign you up for automated weekly questionnaires through [employer]. This is an easy way for us to stay connected each week. Are you interested? No, I understand. We can always sign you up in the future if you change your mind. Just as a reminder, will continue to call you every other week to check in on your health. Our calls should take 10-15 minutes or less. Remember, if you have concerns in between our calls, please call your PCP's office right away. Thank you. Enter next patient outreach date for two weeks on the same day of the week as today in the Track PtOutreach and End outreach. Syeda Frost RN October 13, 2022 1:01 PM documented [facility] History of Present illness Narrative* Lisa Heredia PA-C - 09/20/2022 1:12 PM EST HISTORY AND PHYSICAL Sandy Bhatti 1965 REFERRING PHYSICIAN: Maldonado Raza MD CHIEF COMPLAINT: Consult (COLONOSCOPY) HPI: The patient is a 57 year old female referred for endoscopy. Sandy notes chronic constipation which she manages with a stool softener. Patient denies any change in bowel habits, weight changes, blood in stools, black tarry stools or abdominal pain. NOTES family history of colon cancer in a first-degree relative. The patient notes no upper GI complaints. Sandy has undergone prior endoscopy, per patient greater than 10 years ago. Previous colostomy which was reversed in ' per records in [facility]. Patient's past medical history is significant for renal failure on hemodialysis, hypertension, hyperlipidemia, hypertrophic cardiomyopathy, ventricular tachycardia, type II diabetes mellitus. Patientfollows with Dr. Raza in primary care for her chronic medical conditions. Patient is currently being worked up to have a possible renal transplant and colonoscopy required as part of her preop testing. PAST MEDICAL HISTORY Diagnosis Date Acute kidney failure (HCC) 01/14/2018 Acute respiratory failure (HCC) Anxiety Arterial steal syndrome (HCC) 12/2018 Left AVF Calculus of ureter 06/12/2007 CKD (chronic kidney disease) stage V requiring chronic dialysis ([facility]) 03/01/2018 Dr. Pendleton, nephrology. Constipation Depression 09/04/2006 GERD (gastroesophageal reflux disease) Hemorrhoids HTN (hypertension) 09/04/2001 Hyperlipidemia 09/04/1999 Hypertrophic cardiomyopathy (HCC) Proteinuria 06/14/2013 Renal colic 06/12/2007 Steal syndrome dialysis vascular access ([facility]) 05/17/2019 Recent increased left arm swelling, which was not previously present. She had an intervention in January on the mid subclavian vein for outflow stenosis. Her fistula is patent and working well. Assessment: 05/16/19 LUE DRIL (proximal brachial to distal brachial artery bypass with RLE rGSV - LUE fistula site c/d/i, +thrill/bruit, radial pulse palpable - RLE Thyroid disorder Type II or unspecified type diabetes mellitus without mention of complication, not stated as uncontrolled 09/04/1985 VT (ventricular tachycardia) 05/17/2019 History: Per patient, has history of excited rhythm. Sees a housing quality standard inspector in [place], last seen in January 2019. No concerns. She will continue to follow up with them. Assessment: Ventricular tachycardiaintermittently post-op with HR up to 110s. No chest pain or SOB. Troponins sent to monitor. Labs WNL. ECG completed showing BBB (has had on intermittent previous ECG). - 05/17/19 repeat ECG back to PAST SURGICAL HISTORY Procedure Laterality Date APPENDECTOMY 1992 AV ANASTOMIES OPEN;BY BASILIC VEIN WINN Right 04/20/2020 transpose basilic vein fistula, R arm AV FISTULA OR GRAFT VENOUS Left 10/04/2017 AV FISTULA OR GRAFT VENOUS Left 09/20/2018 redo, failure to mature AV FISTULA OR GRAFT VENOUS Right 04/21/2021 BOWEL RESECTION HX 2006 CHOLECYSTECTOMY 1985 Cholecystectomy COLOSTOMY/SKIN LEVEL CECOSTOMY 2007 [id number], reversed 2007 CREATION OF AVF, PERCUTANEOUS USING MAGNETIC-GUIDED ARTERIAL AND VENOUS CATHETERS AND RADIOFREQUENCY ENERGY Right 11/14/2019 RIGHT AVF stage I EXPLORATORY LAPAROTOMY CELIOTOMY W/WO BIOPSY SPX 2006 Laparotomy, exp IR VENOUS FISTULAGRAM Left 01/22/2019 Left SC balloon PAST SURGICAL HISTORY OF Left 05/16/2019 JOHANNE ELLIOTT (proximal brachial to distal brachial artery bypass with RLE rGSV REDUCTION OF LARGE BREAST 1989 SALPINGECTOMY OR OOPHERECTOMY-ECTOPIC 1985 SLING OPER STRES INCONTINENCE 1998 TOTAL ABDOMINAL HYSTERECT W/WO RMVL TUBE OVARY 1990 Hysterectomy, RUSSELL Current Outpatient Medications Medication Sig insulin detemir U-100 (LEVEMIR FLEXTOUCH U-100 INSULIN) 100 unit/mL (3 mL) injection pen Inject 48 Units subcutaneously daily at bedtime. cloNIDine HCl (CATAPRES) 0.3 mg tablet Take 1 tablet by mouth daily at bedtime. SUMAtriptan (IMITREX) 50 mg tablet Take one tablet by mouth at onset of migraine. May repeat in 2 hours if ineffective insulin needles, DISPOSABLE, (PEN NEEDLE) 31 gauge x 5/16 Use one needle per dose. one per day. atorvastatin (LIPITOR) 40 mg tablet Take 1 tablet by mouth daily at bedtime. levothyroxine (SYNTHROID) 125 mcg tablet Take 1 tablet by mouth once daily. Take on empty stomach. For Thyroid Insulin Syringe-Needle U-100 (BD INSULIN SYRINGE ULTRA-FINE) 1 mL 29 gauge x 1/2 Use twice daily as directed. lisinopril (ZESTRIL, PRINIVIL) 40 mg tablet Take 1 tablet by mouth once daily. amLODIPine (NORVASC) 5 mg tablet Take 1 tablet by mouth once daily. insulin aspart U-100 (NOVOLOG FLEXPEN U-100 INSULIN) 100 unit/mL (3 mL) Inject 8 Units subcutaneously three times daily before meals. Add 1 unit for each 50 mg/dl above 150 peg 3350-Electrolytes (GOLYTELY) 236-22.74-6.74 -5.86 gram suspension Refer to printed prep instructions from your provider. ferric citrate 210 mg iron tab Take 1 tablet by mouth once daily. docusate sodium (COLACE) 100 mg capsule Take 1 capsule by mouth twice daily as needed for Constipation. nitroglycerin sublingual (NITROQUICK) 0.4 mg SL tablet Dissolve 0.4 mg under the tongue every 5 minutes as needed. NEPHRO-PETEY 0.8 mg tab Take 1 tablet by [...] No current facility-administered medications for this visit. ALLERGIES: Codeine, Latex, Penicillins, and Chlorhexidine PERSONAL HISTORY: Social History Tobacco Use Smoking status: Former Packs/day: 1.50 Years: 3.00 Pack years: 4.50 Types: Cigarettes Quit date: 09/04/2005 Years since quittin.0 Smokeless tobacco: Never Tobacco comments: quit march 10 Vaping Use Vaping Use: Never used Substance Use Topics Alcohol use: No Drug use: No FAMILY HISTORY: FAMILY HISTORY Problem Relation Age of Onset Diabetes Mother Coronary Artery Disease Mother COPD Mother dec. age 79 Cancer Mother lung cancer Colon Cancer Father at age 52 Diabetes Sister Hypertension Sister Kidney Disease Brother other (Heart condition) Brother Diabetes Brother Cancer Brother lung cancer Coronary Artery Disease Brother dec. [place] 57 y.o. No Known Problems Maternal Grandmother No Known Problems Maternal Grandfather No Known Problems Paternal Grandmother No Known Problems Paternal Grandfather REVIEW OF SYMPTOMS: The review of systems data was entered by the nurse and reviewed by sd Nursing Notes: Estrella Pinedo LPN 09/20/2022 1:15 PM Signed REVIEW OF SYSTEMS: General: The patient denies fatigue, denies weight loss, denies weight gain, denies feeling hot, and denies feelings of cold. Eyes: The patient denies glaucoma, denies eye injury/surgery, wears glasses or contacts. Ear/Nose/Throat: The patient NOTES allergies, denies hayfever, denies ear infections, and denies bloody noses. Cardiovascular: The patient denies chest pain, denies heart disease, NOTES high blood pressure,denies cardiac stent, denies prior heart attack, denies irregular heart beat, denies high cholesterol, denies poor circulation, denies heart failure, other cardiac issues, denies claudication, denies coldfeet, denies peripheral arterial stent. Respiratory: The patient denies tuberculosis, denies pneumonia, denies frequent cough, denies pulmonary embolism, denies shortness of breath, and denies coughing up blood. Gastrointestinal: The patient denies difficulty swallowing, denies acid reflux, denies ulcers, denies vomiting, denies jaundice/hepatitis, denies gallbladder problems, denies black or tarry stools, denies hemorrhoids, denies bleeding from rectum, denies diverticulitis, denies constipation, denies diarrhea, denies loss of stool control, and NOTES hernias. Kidney/Bladder: The patient denies kidney stones, denies urine infections, and denies bloody urine. Skin: The patient denies a history of skin cancer, denies bleeding/changing moles, and denies a history of skin rash. Neurologic: The patient denies a history of epilepsy/convulsions, denies headaches, denies head/spinal injuries, and denies stroke/TIA. Psychiatric: The patient denies psychiatric medications, denies depression, and denies voices, denies substance abuse. Endocrine: The patient NOTES thyroid disorders, NOTES diabetes, and NOTES hormonal problems. Hematologic: The patient denies a history of bruising, denies bleeding, and denies anemia, denies blood clots. Infections: The patient denies a history of measles and mumps, denies rheumatic fever, and denies sexually transmitted diseases. Musculoskeletal: The patient denies back pain/injury, denies back problems, denies sciatica, deniesknee/foot trouble, denies arthritis, or denies gout. When was patient's last Mammogram screening? N/A Last Colonoscopy: 2006 Estrella Pinedo LPN I have confirmed and edited as necessary, the PFSH and ROS obtained by others. Lisa Heredia PA-C PHYSICAL EXAMINATION: General: The patient is 57 year old female, well nourished, well hydrated in no acute distress. Thepatient is oriented to time, place, and person. VITALS: Blood pressure 118/72, pulse 87, temperature 36.6 C (97.9 F), height 160 cm (5' 3), rznqao01.9 kg (149 lb 12.8 oz), SpO2 95 %. Body mass index is 26.54 kg/m . HEENT: Normal cephalic, ataumatic, pupils are equally round, sclera are anicteric, mucous membranesare moist, oropharynx is clear. Neck has no masses, asymmetry or lymphadenopathy. Respiratory: Clear to auscultation and percussion. Normal respiratory excursion and pattern. Cardiac: Examination is regular rate and rhythm. Normal S1/S2 Abdominal exam: Soft, nontender, with no palpable masses. No hepatosplenomegaly. No palpable hernias. Extremities: no clubbing, cyanosis or edema. No adenopathy. LABORATORY VALUES: As Noted RADIOLOGIC STUDIES: As Noted Assessment IMPRESSION: encounter for screening colonoscopy. Multiple medical comorbidities PLAN: I have reviewed my findings with the surgeon. Will plan for upper and lower endoscopy. We discussed the risks and benefits of the planned endoscopy. I have informed the patient that complications can occur including failure to complete the endoscopy and perforation. The patient had the opportunity to ask questions concerning the planned endoscopy. My staff has also explained the procedure to the patient in understandable terms and has given the patient printed material concerning the procedure. The patient freely consents to surgery. The patient was offered a surgery/procedure [facility] facility. I have counseled the patient regarding the risk of exposure to and/or potential harm posed by the COVID-19 virus with having a surgery/procedure at this time versus the risk of delaying the surgery/procedure. It is not possible to know either the risk of delaying the surgery or procedure or chance of getting an infection with perfect accuracy, but a joint decision was made between the patient and myself to proceed at this time with endoscopy. I plan to use Golytely bowel preparation-split dose d/t renal function Patient instructed to contact PCP for instructions regarding diabetic medication, which may requireadjustment during bowel preparation and/or day of procedure The patient has medical comorbidities for which we will plan for the procedure to be performed under Monitored Anesthetic Care. The patient takes prescription medications which I feel decrease the chance of successful sedation,therefore we will plan for procedure to be done under Monitored Anesthetic Care. Diagnoses: (Z12.11) Encounter for screening for malignant neoplasm of colon (primary encounter diagnosis) (N18.6) ESRD (end stage renal disease) (HCC) (I47.20) VT (ventricular tachycardia) (I25.10) ASCVD (arteriosclerotic cardiovascular disease) (Z80.0) Family history of colon cancer Consultation requested by Dr. Raza for an opinion regarding screening colonoscopy. My final recommendations will be communicated back to the requesting physician by way of shared Medical record or letter to requesting physician via US mail. Lisa Heredia PA-C documented in this encounter[facility]01-17-[facility]23 Nurse Note* Estrella Pinedo LPN - 09/20/2022 1:12 PM EST REVIEW OF SYSTEMS: General: The patient denies fatigue, denies weight loss, denies weight gain, denies feeling hot, and denies feelings of cold. Eyes: The patient denies glaucoma, denies eye injury/surgery, wears glasses or contacts. Ear/Nose/Throat: The patient NOTES allergies, denies hayfever, denies ear infections, and denies bloody noses. Cardiovascular: The patient denies chest pain, denies heart disease, NOTES high blood pressure,denies cardiac stent, denies prior heart attack, denies irregular heart beat, denies high cholesterol, denies poor circulation, denies heart failure, other cardiac issues, denies claudication, denies coldfeet, denies peripheral arterial stent. Respiratory: The patient denies tuberculosis, denies pneumonia, denies frequent cough, denies pulmonary embolism, denies shortness of breath, and denies coughing up blood. Gastrointestinal: The patient denies difficulty swallowing, denies acid reflux, denies ulcers, denies vomiting, denies jaundice/hepatitis, denies gallbladder problems, denies black or tarry stools, denies hemorrhoids, denies bleeding from rectum, denies diverticulitis, denies constipation, denies diarrhea, denies loss of stool control, and NOTES hernias. Kidney/Bladder: The patient denies kidney stones, denies urine infections, and denies bloody urine. Skin: The patient denies a history of skin cancer, denies bleeding/changing moles, and denies a history of skin rash. Neurologic: The patient denies a history of epilepsy/convulsions, denies headaches, denies head/spinal injuries, and denies stroke/TIA. Psychiatric: The patient denies psychiatric medications, denies depression, and denies voices, denies substance abuse. Endocrine: The patient NOTES thyroid disorders, NOTES diabetes, and NOTES hormonal problems. Hematologic: The patient denies a history of bruising, denies bleeding, and denies anemia, denies blood clots. Infections: The patient denies a history of measles and mumps, denies rheumatic fever, and denies sexually transmitted diseases. Musculoskeletal: The patient denies back pain/injury, denies back problems, denies sciatica, deniesknee/foot trouble, denies arthritis, or denies gout. When was patient's last Mammogram screening? N/A Last Colonoscopy: 2006 Estrella Pinedo LPN documented in [facility] encounter[facility]01-[facility]23 Instructions* Patient Instructions* Ifeoma Schneider APRN.CNP - 09/20/2022 10:51 AM EST Recombinant shingles vaccine (Shingrix) is recommended; 2 doses 2-6 months apart. Please read information, check with your insurance, and schedule vaccination at your local pharmacy. A prescription is not required. If you are certain you have coverage to receive this vaccine in the office, we can schedule this for you. documented in this encounterMi[facility]01-17-[facility]23 History of Present illness Narrative* Ifeoma Schneider APRN.CNP - 09/20/2022 10:47 AM EST CC: Patient presents with: 4 month follow up: Currently on cipro for kidney infection - was seen in [facility] ER yesterday HPI Sandy Bhatti is a 57 year old female who presents today for above. She was in ER yesterday for flank pain. CT negative for stone. Treatment with Cipro initiated for possible kidney infection. She has appointment soon with urology. Patient reports left flank pain has almost completley resolved. Shehad COVID last month. Symptoms were very mild and have resolved. She had thrombectomy on 09/13 for blood clot in her fistula. Left arm swelling has decreased some and denies pain. Was able to have dialysis per usual. Checking blood sugars daily, fasting this morning was 130. Denies increased thirst,urinary frequency, nocturia, fatigue, unintentional weight loss, blurred vision, numbness, tingling or pain in extremities, ulcers or sores on feet. Does not check BP at home, typically well controlled. Taking all medications as prescribed, denies side effects. REVIEW OF SYSTEMS GENERAL: Negative for malaise, significant weight loss and fever RESPIRATORY: Negative for cough, wheezing and shortness of breath CARDIOVASCULAR: Negative for chest pain, leg swelling and palpitations All other systems negative. PAST MEDICAL HISTORY Diagnosis Date Acute kidney failure (HCC) 01/14/2018 Acute respiratory failure ([facility]) Anxiety Arterial steal syndrome ([facility]) 12/2018 Left AVF Calculus of ureter 06/12/2007 CKD (chronic kidney disease) stage V requiring chronic dialysis ([facility]) 03/01/2018 Dr. Pendleton, nephrology. Constipation Depression 09/04/2006 GERD (gastroesophageal reflux disease) Hemorrhoids HTN (hypertension) 09/04/2001 Hyperlipidemia 09/04/1999 Hypertrophic cardiomyopathy ([facility]) Proteinuria 06/14/2013 Renal colic 06/12/2007 Steal syndrome dialysis vascular access ([facility]) 05/17/2019 Recent increased left arm swelling, which was not previously present. She had an intervention in January on the mid subclavian vein for outflow stenosis. Her fistula is patent and working well. Assessment: 05/16/19 LUE DRIL (proximal brachial to distal brachial artery bypass with RLE rGSV - LUE fistula site c/d/i, +thrill/bruit, radial pulse palpable - RLE Thyroid disorder Type II or unspecified type diabetes mellitus without mention of complication, not stated as uncontrolled 09/04/1985 VT (ventricular tachycardia) 05/17/2019 History: Per patient, has history of excited rhythm. Sees a housing quality standard inspector in [place], last seen in January 2019. No concerns. She will continue to follow up with them. Assessment: Ventricular tachycardiaintermittently post-op with HR up to 110s. No chest pain or SOB. Troponins sent to monitor. Labs WNL. ECG completed showing BBB (has had on intermittent previous ECG). - 05/17/19 repeat ECG back to PAST SURGICAL HISTORY Procedure Laterality Date APPENDECTOMY 1992 AV ANASTOMIES OPEN;BY BASILIC VEIN WINN Right 04/20/2020 transpose basilic vein fistula, R arm AV FISTULA OR GRAFT VENOUS Left 10/04/2017 AV FISTULA OR GRAFT VENOUS Left 09/20/2018 redo, failure to mature AV FISTULA OR GRAFT VENOUS Right 04/21/2021 BOWEL RESECTION HX 2006 CHOLECYSTECTOMY 1985 Cholecystectomy COLOSTOMY/SKIN LEVEL CECOSTOMY 2006 [id number], reversed 2006 CREATION OF AVF, PERCUTANEOUS USING MAGNETIC-GUIDED ARTERIAL AND VENOUS CATHETERS AND RADIOFREQUENCY ENERGY Right 11/14/2019 RIGHT AVF stage I EXPLORATORY LAPAROTOMY CELIOTOMY W/WO BIOPSY SPX 2006 Laparotomy, exp IR VENOUS FISTULAGRAM Left 01/22/2019 Left SC balloon PAST SURGICAL HISTORY OF Left 05/16/2019 LUE DRIL (proximal brachial to distal brachial artery bypass with RLE rGSV REDUCTION OF LARGE BREAST 1989 SALPINGECTOMY OR OOPHERECTOMY-ECTOPIC 1985 SLING OPER STRES INCONTINENCE 1998 TOTAL ABDOMINAL HYSTERECT W/WO RMVL TUBE OVARY 1990 Hysterectomy, RUSSELL ALLERGIES Codeine, Latex, Penicillins, and Chlorhexidine MEDICATIONS insulin needles, DISPOSABLE, (PEN NEEDLE) 31 gauge x 5/16 Use one needle per dose. one per day. atorvastatin (LIPITOR) 40 mg tablet Take 1 tablet by mouth daily at bedtime. levothyroxine (SYNTHROID) 125 mcg tablet Take 1 tablet by mouth once daily. Take on empty stomach. For Thyroid Insulin Syringe-Needle U-100 (BD INSULIN SYRINGE ULTRA-FINE) 1 mL 29 gauge x 1/2 Use twice daily as directed. lisinopril (ZESTRIL, PRINIVIL) 40 mg tablet Take 1 tablet by mouth once daily. amLODIPine (NORVASC) 5 mg tablet Take 1 tablet by mouth once daily. insulin aspart U-100 (NOVOLOG FLEXPEN U-100 INSULIN) 100 unit/mL (3 mL) Inject 8 Units subcutaneously three times daily before meals. Add 1 unit for each 50 mg/dl above 150 insulin detemir U-100 (LEVEMIR FLEXTOUCH U-100 INSULIN) 100 unit/mL (3 mL) injection pen Inject 48 Units subcutaneously daily at bedtime. cloNIDine HCl (CATAPRES) 0.3 mg tablet Take 1 tablet by mouth daily at bedtime. peg 3350-Electrolytes (GOLYTELY) 236-22.74-6.74 -5.86 gram suspension Refer to printed prep instructions from your provider. (Patient not taking: Reported on 05/02/2022) SUMAtriptan (IMITREX) 50 mg tablet Take one tablet by mouth at onset of migraine. May repeat in 2 hours if ineffective ferric citrate 210 mg iron tab Take 1 tablet by mouth once daily. docusate sodium (COLACE) 100 mg capsule Take 1 capsule by mouth twice daily as needed for Constipation. nitroglycerin sublingual (NITROQUICK) 0.4 mg SL tablet Dissolve 0.4 mg under the tongue every 5 minutes as needed. NEPHRO-PETEY 0.8 mg tab Take 1 tablet by [...] Take 1 tablet by mouth once daily. FAMILY HISTORY Problem Relation Age of Onset Diabetes Mother Coronary Artery Disease Mother COPD Mother dec. age 79 Cancer Mother lung cancer Colon Cancer Father at age 52 Diabetes Sister Hypertension Sister Kidney Disease Brother other (Heart condition) Brother Diabetes Brother Cancer Brother lung cancer Coronary Artery Disease Brother dec. [place] 57 y.o. No Known Problems Maternal Grandmother No Known Problems Maternal Grandfather No Known Problems Paternal Grandmother No Known Problems Paternal Grandfather Social History Tobacco Use Smoking status: Former Packs/day: 1.50 Years: 3.00 Pack years: 4.50 Types: Cigarettes Quit date: 09/04/2005 Years since quittin.0 Smokeless tobacco: Never Tobacco comments: quit march 10 Vaping Use Vaping Use: Never used Substance Use Topics Alcohol use: No Drug use: No PHYSICAL EXAM BP 116/50 Pulse 82 Resp 12 Wt 67.1 kg (148 lb) BMI 26.22 kg/m General Appearance: well appearing, in no acute distress, alert Lungs: Lungs clear to auscultation. No wheezing, rhonchi, rales. Heart: RRR without murmur, gallop, or rubs. No ectopy Feet:Shoes and socks removed, No deformities, ulcers, calluses, sensitive to 10 gm monofilament, and vibratory perception normal Health maintenance reviewed with patient: HEPATITIS B(1 of 3 - 3-dose series) Never done HEPATITIS A(1 of 2 - Risk 2-dose series) Never done DILATED RETINAL EXAM due on 05/30/2018 COLORECTAL CANCER SCREENING due on 05/10/2019 BP CONTROLLED (<130/80) due on 08/14/2019 SHINGRIX VACCINE(2 of 2) due on 07/09/2020 INFLUENZA(1) due on 05/05/2022 DIABETIC FOOT EXAM due on 08/12/2022 COVID-19 VACCINE(1) due on 11/16/2022 HBA1C due on 11/01/2022 DTAP,TDAP,TD(2 - Td or Tdap) due on 11/02/2022 LDL CHOLESTEROL due on 05/02/2023 ANNUAL PCP TEAM CHRONIC DISEASE VISIT due on 05/02/2023 HEMOGLOBIN/HEMATOCRIT due on 05/02/2023 MAMMOGRAM due on 07/05/2023 SERUM CREATININE due on 09/13/2023 PAP TESTING due on 11/06/2024 HPV TESTING due on 11/16/2024 PNEUMOCOCCAL(4 - PPSV23 if available, else PCV20) due on 01/19/2029 HEPATITIS C SCREENING Completed HIV SCREENING Completed DATA REVIEWED: Most recent labs ASSESSMENT/PLAN: 1. Controlled type 2 diabetes mellitus without complication, with long-term current use of insulin (HCC) - ICD9: 250.00, V58.67, ICD10: E11.9, Z79.4 (primary diagnosis) Controlled. - Continue current medications - LEVEMIR FLEXTOUCH U-100 INSULIN 100 UNIT/ML (3 ML) SUBCUTANEOUS PEN 2. Urinary tract infection without hematuria, site unspecified - ICD9: 599.0, ICD10: N39.0 Symptoms resolving. Continue with Cipro and follow-up with urologist as scheduled 3. Essential hypertension - ICD9: 401.9, ICD10: I10 - good control - Continue current medication(s) - Recommended regular aerobic exercise. - Recommend home blood pressure monitoring, to bring results in on next visit - Goal of BP <130/80 - CLONIDINE HCL 0.3 MG TABLET 4. Hypothyroidism, unspecified type - ICD9: 244.9, ICD10: E03.9 Patient taking levothyroxine daily on an empty stomach - TSH BLD today 5. Encounter for immunization - ICD9: V03.89, ICD10: Z23 - INFLUENZA VACCINE QUADRIVALENT 6 MO - 64 YRS IM - PFIZER-BIONTECH COVID-19 PRIMARY SERIES VACCINE, AGE 12+ YR 6. ESRD on dialysis (HCC) - ICD9: 585.6, V45.11, ICD10: N18.6, Z99.2 Stable 7. Depression, unspecified depression type - ICD9: 311, ICD10: F32.A Stable Prescription instructions reviewed with patient as applicable. Potential red flag symptoms discussed with the patient. Reviewed appropriate action plan to take if red flag symptoms occur. Patient agreeable to treatment plan. Ifeoma Schneider APRN.CNP [facility] Torrez [facility] September 19, 2022 1:49pm Note Date/Time September 19, 2022 1 1:00am [facility] Medical Records Department [address] [place] [id number] Emergency Department Summary 09/19/22 MR#: [id number] Acct: [id number] Name: SANDY BHATTI Rep #:[id number] : 1965 57 From: Warren Torrez DO PCP: Dr. Maldonado Raza MD Status:R EG ER Location: ED HPI History of Present Illness Chief Complaint: Flank Pain Narrative Narrative: 57-year-old female with end-stage renal disease on dialysis Monday, Monday, Monday presenting with left flank pain. Onset was this morning. She presents after having full dialysis today. She states it feels like previous kidney stones. She states she has not had a kidney stone since the . Patient reports that she does not make very much urine and sometimes it will take all day. She does make urine. She denies dysuria or hematuria. Patient states the previous tonsil passed on their own. Patient expresses that she is a little bit nauseous with the flank pain. She is not had a fever. She denies constipation or diarrhea. [facility] Medical History Acid reflux Anxiety Congestive heart failure (CHF) Constipation Depression Diabetes Dialysis patient Former smoker Heart disease Hemorrhoids Hypertension Hypothyroidism Kidney disease Problem with dialysis access Thyroid disease TIA (transient ischemic attack) Wears hearing aid in both ears Home Medications aspirin 81 mg tablet,delayed release (Adult Low Dose Aspirin) 81 mg PO DAILY heart health 08/14/18 [History Last Taken 01/10/21] atorvastatin 40 mg tablet 40 mg PO QHS cholesterol 08/14/18 [History Last Taken 01/10/21] clonidine HCl 0.3 mg tablet 0.3 mg PO QHS blood pressure 08/14/18 [History Last Taken 01/10/21] levothyroxine 112 mcg capsule 112 mcg PO DAILY thyroid 08/14/18 [History Last Taken 01/11/21] vitamin B complex-vitamin C-folic acid 0.8 mg tablet (Kenneth-Petey) 1 tab PO DAILY vitamin 01/11/21 [History Last Taken 01/10/21] insulin aspart U-100 100 unit/mL (3 mL) subcutaneous pen (Novolog FlexPen U-100 Insulin aspart) 8 unit (0.08 mL) subcut TIDCM insulin #0 mL 01/12/21 [Rx Last Taken 01/10/21] insulin detemir U-100 100 unit/mL (3 mL) subcutaneous pen 48 unit (0.48 mL) subcut QHS insulin #0 mL 01/12/21 [Rx Last Taken 01/10/21] hydrocodone-acetaminophen 5-325mg 5mg-325mg 1 tab PO Q4H PRN PRN Pain 2 days #10TABLETS 06/21/22 [Rx Last Taken Unknown] levofloxacin 750 mg tablet 750 mg PO DAILY #10 tabs 06/21/22 [Rx Last Taken Unknown] ciprofloxacin HCl 500 mg tablet (Cipro) 500 mg PO BID 7 days #14 tabs 09/19/22 [Rx Last Taken Unknown] Allergy/AdvReac Type Severity Reaction Status Date / Time chlorhexidine Allergy Mild rash Verified 09/19/22 10:42 codeine Allergy Unknown Unknown Verified 09/19/22 10:42 latex Allergy Unknown Unknown Verified 09/19/22 10:42 Penicillins Allergy Unknown Unknown Verified 09/19/22 10:42 Family History Brother Kidney disease Mother Cancer lung cancer Father Colon cancer Surgical History History of bowel resection History of partial hysterectomy Hx of appendectomy Hx of arteriovenostomy for renal dialysis Hx of bilateral breast reduction surgery Hx of cholecystectomy Social History Smoking Status: Former smoker alcohol intake: never substance use type: does not use caffeine: Yes what type of physical activity do you participate in: none frequency: does not exercise ROS ROS ED Constitutional Constitutional ED: Denies chills or fever(s) Eyes Eyes: Denies change in vision or diplopia ENT ENT ED: Denies rhinorrhea or sore throat Cardiovascular Cardiovascular: Denies chest pain or palpitations Respiratory/Chest Respiratory/Chest: Denies cough or dyspnea Gastrointestinal Gastrointestinal: Reports abdominal pain, nausea and vomiting Genitourinary Genitourinary ED: Denies dysuria or hematuria Musculoskeletal Musculoskeletal: Reports back pain Integumentary Denies abscess or Abrasions Neurologic Neurologic: Denies headache(s) or paresthesias Psychiatric Psychiatric: Denies anxiety or depression EXAM Physical Exam Const Vital Signs: 09/19/22 10:42 09/19/22 11:21 Temperature 96.8 F L Temperature Source Temporal Pulse Rate 109 H Respiratory Rate 18 Respiratory Effort Normal Non-Labored Respiratory Pattern Normal Blood Pressure 161/59 H Blood Pressure Mean 93 Pulse Ox 100 Oxygen Delivery Method Room Air Positive well nourished General Appearance ED: NAD; Negative for pallor HEENT Reports moist mucous membranes Eyes PERRL and EOMs intact bilaterally Neck no lymphadenopathy Resp normal respiratory effort and clear to auscultation bilaterally Auscultation: Negative for rales, rhonchi or wheezes Cardio regular rate and regular rhythm GI normal to inspection, nondistended, normoactive bowel sounds Back/Spine General Back: CVA tenderness left Neuro oriented x3 and CN's II-XII intact bilaterally Sensorium / Orientation: alert Psych mental status grossly normal Skin no rashes or lesions noted General Skin Exam: Negative for jaundice or pallor MDM MDM MDM Narrative Medical decision making narrative: Patient presenting with symptoms of kidney stone. She does have CVA tenderness on the left. She completed dialysis today. She was medicated with morphine andZofran. Patient was not given IV fluids due to her history of end-stage renal disease on dialysis. Patient CBC was obtained another white blood cell count oranemia. Patient's white blood cell count is 4.2. Hemoglobin is stable at 10.8. Patient has chronic kidney disease. She denies black or bloody stools. Creatinine is 3.52 which is what is expected in renal patient. Electrolytes unremarkable with exception of potassium 3.4. Leukos elevated at 166 without anion gap. Urinalysis negative for nitrites but shows 500 leukocyte esterase 0-5 red blood cells, 25-50 white blood cells and 2+ bacteria. There is 5-10 squamous epithelial cells, however given her symptoms with CVA tenderness I willtreat her as pyelonephritis. I did obtain a flank study which does not show evidence of kidney stone but does show to nondilated area of hernia. Patient knows of this. She is not having pain in this location. Patient given first dose of Cipro in the ER due to penicillin allergy which she states she gets hives from. Patient put on Cipro as an outpatient. She has an outpatient urologist she can follow-up with. Return precautions discussed. Impression: 1. Left-sided pyelonephritis 2. History of end-stage renal disease on dialysis Lab Data Labs: Laboratory Results - last 24 hr 09/19/22 09/19/22 09/19/22 11:20 11:20 11:20 WBC 4.2 L RBC 3.40 L Hgb 10.8 L Hct 33.8 L MCV 99.4 H MCH 31.8 MCHC 32.0 RDW Std Deviation 46.0 H RDW Coeff of Alvina 12.6 Plt Count 182 MPV 8.8 Immature Gran % (Auto) 1.200 H Neut % (Auto) 62.9 Lymph % (Auto) 24.1 [place] % (Auto) 8.5 Eos % (Auto) 2.1 Baso % (Auto) 1.2 H Absolute Neuts (auto) 2.7 Absolute Lymphs (auto) 1.02 Nucleated RBC % 0 Sodium 139 Potassium 3.4 L Chloride 98 Carbon Dioxide 34.0 H Anion Gap 7 BUN 14 Creatinine 3.52 H Estim Creat Clear Calc 13.78 Est GFR (MDRD) Af Amer 17 L Est GFR (MDRD) Non-Af 14 L BUN/Creatinine Ratio 4.0 L Glucose 166 H Calcium 9.1 Urine Color Yellow Urine Clarity Sl. Cloudy Urine pH 8.0 Ur Specific Rogers 1.010 Urine Protein 500 H Urine Glucose (UA) 100 H Urine Ketones 5 H Urine Occult Blood 50 H Urine Nitrite Negative Urine Bilirubin 3 H Urine Urobilinogen Normal Ur Leukocyte Esterase 500 H Urine RBC 0-5 SEEN Urine WBC 25-50 SEEN Ur Squamous Epith Cells 5-10 SEEN Urine Bacteria 2+ Urine Mucus 0 SEEN Radiography Diagnostic Testing: Clinical Impression(s) from Imaging Studies Abdomen/Pelvis CT 09/19/22 11:23 IMPRESSION: Extensive atherosclerotic calcific plaques of the aorta and major visceral branches extending into both kidneys. No evidence of ureteral obstruction at this time. Left paramedian hernia containing nondilated small bowel loops. A small right paramedian hernia is also seen containing a portion of the transverse colon. Electronically Signed: Ravi Gay MD at 11:59 EST , Discharge Plan Triage Chief Complaint: Flank Pain ED Provider: Warren Torrez Dx/Rx/DC Orders Instructions: ED Pyelonephritis, Female (Adult) Prescriptions: New ciprofloxacin HCl [Cipro] 500 mg tablet 500 mg PO BID 7 Days Qty: 14 0RF No Action aspirin [Adult Low Dose Aspirin] 81 mg tablet,delayed release (DR/EC) 81 mg PO DAILY clonidine HCl 0.3 mg tablet 0.3 mg tablet 0.3 mg PO QHS levothyroxine 112 mcg capsule 112 mcg capsule 112 mcg PO DAILY atorvastatin 40 mg tablet 40 mg PO QHS Kenneth-Petey 0.8 mg Tablet 1 tab PO DAILY insulin aspart U-100 [Novolog FlexPen U-100 Insulin] 100 unit/mL insulin pen 8 unit SC TIDCM Qty: 0 0RF insulin detemir U-100 100 UNITS/ML insulin pen 48 unit SC QHS Qty: 0 0RF levofloxacin 750 mg tablet 750 mg PO DAILY Qty: 10 0RF hydrocodone-acetaminophen [hydrocodone-acetaminophen] 5-325 mg tablet 1 tab PO Q4H PRN PRN (Reason: Pain) 2 Days Qty: 10 0RF Primary Care Provider: Maldonado Raza Referrals: Maldonado Raza MD [Primary Care Provider] - Disposition Disposition: Home, Self Care What to do if you have Problems For any increased pain, shortness of breath, bleeding, nausea or vomiting, chestpain, or any unexpected problems, contact your Primary Care Provider. Call [facility] ([phone]) or report to the closest Emergency Room. Call 911 if necessary. 09/19/22 1349 <Electronically signed by Warren Torrez DO> Cosigner Signature (if applicable): CC: Dr. Maldonado Raza MD ~ Signed [facility] Work Phone: 1(869) 101-916701-10-2023 Miscellaneous Notes* Telephone Encounter - Glenna Griffith RN - 09/13/2022 11:01 AM EST Last Office Visit: 05/01/2022 Future Office Visit: 09/15/222 Requested Prescriptions Pending Prescriptions Disp Refills insulin needles, DISPOSABLE, (PEN NEEDLE) 31 gauge x 5/16 100 Each 3 Sig: Use one needle per dose. one per day. Date of Last Labs: 05/02/2022 [facility]23 Miscellaneous Notes* Telephone Encounter - Cony Larson - 09/12/2022 10:24 AM EST Spoke with pt and confirmed 9:00 am arrival time for vascular procedure on 09/13. Reviewed all instructions. documented [facility]23 History of Present illness Narrative* Syeda Frost RN - 09/08/2022 5:34 PM EST INSIGHT CDM TELEPHONIC OUTREACH Provider Action/FYI: CDM: CKD/ ESRD Spk with spouse he reported on 09/13/22 Sandy will have a Right Arm Fistulogram. Denies needs. Instructed to call PCP with any changes in symptoms or condition, he verbalized understanding, Contact made with patient: Yes Patient identified by name and . Discussed care with spouse It s nice talking to you again. As a reminder, this is our bi-weekly check-in where I will be asking you questions about your health. This will only take a few minutes of your time. Is this a good time? Yes Symptoms What Chronic Disease(s) does the patient have: CKD Do you check your blood pressures at home? Yes, Enter readings: Not avail Do you have new or worse shortness of breath with activity? No Do you feel like you are dehydrated for any reason, including not being able to eat or drink normally, or having less urine/much darker urine than normal for you? No Do you check your daily weight at home? Yes, Have you noticed a sudden gain in weight greater than three pounds in a day or three pounds in a week? No Are you having any other symptoms that your PCP needs to know about? No Symptoms: N/A Symptom Escalation JEANNETTE Education Ordered -: No The patient required an escalation for symptom(s)? No Medications Do you have any questions about taking your medication or which medications you should be on? No Do you need any medication refills at this time, including any of the medications you might take only when needed? No Social We would like to make sure you have what you need so that your basic needs are met- including your personal safety, food, housing and medications? Would you like to speak with a social work user experience team lead to help give you support for any of these needs? No It can be normal to feel anxious or down during a time like this. Would you like to talk to a mental health professional about how you have been feeling? No Closing Thank you for taking the time to talk with me today. We want to work with you to ensure that we arekeeping your medical condition(s) well-controlled and to keep you healthy and out of the doctor's office or hospital. It s also not too late for me to sign you up for automated weekly questionnaires through [employer]. This is an easy way for us to stay connected each week. Are you interested? No, I understand. We can always sign you up in the future if you change your mind. Just as a reminder, will continue to call you every other week to check in on your health. Our calls should take 10-15 minutes or less. Remember, if you have concerns in between our calls, please call your PCP's office right away. Thank you. Enter next patient outreach date for two weeks on the same day of the week as today in the Track PtOutreach and End outreach. Syeda Frost RN September 08, 2022 5:34 PM * Syeda Frost RN - 09/06/2022 12:28 PM EST INSIGHT CDM TELEPHONIC OUTREACH Provider Action/FYI: CKD/ ESRD Called Pt left a message to verify symptom status or needs. 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 I am sorry I missed your call. I will reach out to you again tomorrow. (if the third call I will reach out to you again next week) Enter next patient outreach date for the following day using the Track Pt Outreach. End outreach. Syeda Frost RN September 06, 2022 12:28 PM documented in this encounterMi[facility]01-05-2023 Miscellaneous Notes* Telephone Encounter - Glenna Griffith RN - 09/08/2022 3:57 PM EST Last Office Visit: 05/02/2022 Future Office Visit: 09/15/2022 Requested Prescriptions Pending Prescriptions Disp Refills atorvastatin (LIPITOR) 40 mg tablet 90 tablet 1 Sig: Take 1 tablet by mouth daily at bedtime. levothyroxine (SYNTHROID) 125 mcg tablet 90 tablet 3 Sig: Take 1 tablet by mouth once daily. Take on empty stomach. For Thyroid Date of Last Labs 05/02/2022 documented in [facility]Mi[facility]01-04-2023 Miscellaneous Notes* Telephone Encounter - Sanjana Ann - 09/07/2022 2:35 PM EST Spoke with patient and spouse and rescheduled fistulagram to 09/13/[address]Kalen * Telephone Encounter - Cony Larson - 09/07/2022 1:52 PM EST Pt scheduled for fistulagram 09/08/22. Left voicemail for pt with 10:00 arrival time and all instructions. Also spoke with dialysis unit nurse- she will call the patient again as well. * Telephone Encounter - Cony Larson - 09/07/2022 12:45 PM EST Dialysis unit in [place] called to request fistulagram due to hand swelling. Will fax note and orders for next available appointment. documented in this encounterMi[facility]12-20-2022 Miscellaneous Notes* Telephone Encounter - Edie Samayoa LPN - 08/23/2022 4:54 PM EST Patient given below recommendation, verbalized understanding. Edie Samayoa LPN * Telephone Encounter - Carla Best APRN.IRAIDA - 08/23/2022 4:48 PM EST Endorse visit with urgent care or mychart on demand video visit willing. * Telephone Encounter - Michelle Julio LPN - 08/23/2022 11:10 AM EST Pt calls to report sx started yesterday. Pt reports cough, fever, nasal congestion. Pt is asking if pcp will prescribe medication over the phone. Advised pt needs to be seen to evaluate since there are so many viruses at this time. Pt at first reports temp is 104.2 but states she was under blankets at the time. Pt reports she hasbeen up for awhile so takes temp again while on phone with this nurse. Temp is 99.8. Pt will try otc medication for sx. Refused appt at this time. Michelle Julio LPN documented in this encounterMi[facility]12-01-2022 History of Present illness Narrative* Syeda Frost RN - 08/04/2022 11:30 AM EST INSIGHT CDM TELEPHONIC OUTREACH Provider Action/FYI: Spk with Pt she reports was seen by ENT and Left ear tube inserted, denies fever ,chills or pain, or drainage. Ear infection resolved. ESRD on Dialysis Mon/Mon/Mon, Right forearm with patent vascular access, Pt [facility]. Pt maintains fluid limit 32-36 oz Denies needs or concerns Contact made with patient: Yes Patient identified by name and . Discussed care with patient It s nice talking to you again. As a reminder, this is our bi-weekly check-in where I will be asking you questions about your health. This will only take a few minutes of your time. Is this a good time? Yes Symptoms What Chronic Disease(s) does the patient have: CKD Do you check your blood pressures at home? Yes, Enter readings: Not available Do you have new or worse shortness of breath with activity? No Do you feel like you are dehydrated for any reason, including not being able to eat or drink normally, or having less urine/much darker urine than normal for you? No Do you check your daily weight at home? Yes, Have you noticed a sudden gain in weight greater than three pounds in a day or three pounds in a week? No Are you having any other symptoms that your PCP needs to know about? No Symptom Escalation The patient required an escalation for symptom(s)? No Medications Do you have any questions about taking your medication or which medications you should be on? No Do you need any medication refills at this time, including any of the medications you might take only when needed? No Social We would like to make sure you have what you need so that your basic needs are met- including your personal safety, food, housing and medications? Would you like to speak with a social work user experience team lead to help give you support for any of these needs? No It can be normal to feel anxious or down during a time like this. Would you like to talk to a mental health professional about how you have been feeling? No Closing Thank you for taking the time to talk with me today. We want to work with you to ensure that we arekeeping your medical condition(s) well-controlled and to keep you healthy and out of the doctor's office or hospital. It s also not too late for me to sign you up for automated weekly questionnaires through [employer]. This is an easy way for us to stay connected each week. Are you interested? No, I understand. We can always sign you up in the future if you change your mind. Just as a reminder, will continue to call you every other week to check in on your health. Our calls should take 10-15 minutes or less. Remember, if you have concerns in between our calls, please call your PCP's office right away. Thank you. Enter next patient outreach date for two weeks on the same day of the week as today in the Track PtOutreach and End outreach. Syeda Frost RN August 04, 2022 11:30 AM documented in this encounterMi[facility]11-07-2022 Miscellaneous Notes* Telephone Encounter - Brittani Gregg RN - 07/11/2022 4:07 PM EST Left detailed message on identified voicemail. Brittani Gregg RN * Telephone Encounter - Krys Bettencourt LPN - 07/07/2022 2:40 PM EDT 2nd message left for pt to contact the office with test results. Krys Bettencourt LPN' * Telephone Encounter - Syeda Koroma RN - 07/06/2022 1:17 PM EDT Left messsage for patient to return phone call ----- Message from Helen Cuellar APRN.CNM sent at 07/06/2022 11:27 AM EDT ----- Negative for yeast and bacterial vaginosis. Helen Cuellar APRN.CNM documented in this encounterMiami [facility] Hospital11-01-2022 Miscellaneous Notes* Letter - Mammography Coordinator - 07/05/2022 11:31 AM EDT July 05, 2022 PID: [id number] [address] [place] [address] Dear Magy, We are pleased to inform you that the results of your recent breast imaging exam on 07/05/2022 are normal. Early detection of cancer is very important. We also understand recommendations regarding breast cancer screening are controversial. Please discuss with your primary care provider which strategy is best for you and whether a mammogram is right for you. Your imaging studies and report will be kept [facility] at [facility] as part of your permanent medical record and are available for your continuing care. Thank you for allowing us to help in meeting your health care needs. Sincerely, Dr. Adams Interpreting Radiologist [facility] (Normal over 40) documented in this encounterMiami Valley Hospital11-01-2022 Instructions* Patient Instructions* Helen Cuellar APRN.CNM - 07/05/2022 11:10 AM EDT Non-Hormonal Vaginal Lubricants & Vaginal Moisturizers Symptoms of vaginal dryness can be managed by the regular use of vaginal moisturizing agents with supplemental use of vaginal lubricants for sexual intercourse. . Use of vaginal moisturizers and lubricants alone is effective treatment for vaginal dryness or dyspareunia (pain with intercourse) in some patients. Vaginal lubrications- Vaginal lubricants are designed to reduce friction and discomfort from dryness during sexual intercourse. The lubricant is applied inside the vagina and/or on the partner's penis or fingers just before sex. Coconut, [place], Avocado or Peanut oil- natural oils are not recommended for use with latex condoms or diaphragms as they can damage the latex Astroglide- has both water and silicone based KY Jelly- water based Just like me - Pure Romance Almost Naked Good Clean Love - Bio Nude ultra-sensitive Pjur- silicone ID Millennium- silicone Vaginal Moisturizers- Vaginal moisturizers are intended for use routinely, typically two or three days per week, not just during sexual activity. These products are typically bioadhesives. Many moisturizer products are available in pharmacies and online. Restore- CarsabicleanCheckve.iBuildApp Replens Natan Feminease Moist Again K-Y Liquid beads Products to assist with maintaining vaginal ph IsoFresh www.Media Lantern BiopHresh Rephresh documented in this encounter[facility]11[facility] History of Present illness Narrative* Helen Cuellar APRN.CNM - 07/05/2022 10:41 AM EDT Sandy is a 57 year old who presents for an annual gynecologic exam without complaints. Partial hysterectomy-has cervix Just completed antibiotics for ear infection and thinks she may be starting a yeast infection. Increased vaginal discharge with itching. Postmenopausal: Hysterectomy 1989 HRT use: No. 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 Pendleton, nephrology. Constipation Depression 09/04/2006 GERD (gastroesophageal reflux disease) Hemorrhoids HTN (hypertension) 09/04/2001 Hyperlipidemia 09/04/1999 Hypertrophic cardiomyopathy (HCC) Proteinuria 06/14/2013 Renal colic 06/12/2007 Steal syndrome dialysis vascular access (HCC) 05/17/2019 Recent increased left arm swelling, which was not previously present. She had an intervention in January on the mid subclavian vein for outflow stenosis. Her fistula is patent and working well. Assessment: 05/16/19 LUE DRIL (proximal brachial to distal brachial artery bypass with RLE rGSV - LUE fistula site c/d/i, +thrill/bruit, radial pulse palpable - RLE Thyroid disorder Type II or unspecified type diabetes mellitus without mention of complication, not stated as uncontrolled 09/04/1985 VT (ventricular tachycardia) 05/17/2019 History: Per patient, has history of excited rhythm. Sees a housing quality standard inspector in [place], last seen in January 2019. No concerns. She will continue to follow up with them. Assessment: Ventricular tachycardiaintermittently post-op with HR up to 110s. No chest pain or SOB. Troponins sent to monitor. Labs WNL. ECG completed showing BBB (has had on intermittent previous ECG). - 05/17/19 repeat ECG back to PAST SURGICAL HISTORY Procedure Laterality Date APPENDECTOMY 1992 AV ANASTOMIES OPEN;BY BASILIC VEIN WINN Right 04/20/2020 transpose basilic vein fistula, R arm AV FISTULA OR GRAFT VENOUS Left 10/04/2017 AV FISTULA OR GRAFT VENOUS Left 09/20/2018 redo, failure to mature AV FISTULA OR GRAFT VENOUS Right 04/21/2021 BOWEL RESECTION HX 2006 CHOLECYSTECTOMY 1985 Cholecystectomy COLOSTOMY/SKIN LEVEL CECOSTOMY 2006 [id number], reversed 2006 CREATION OF AVF, PERCUTANEOUS USING MAGNETIC-GUIDED ARTERIAL AND VENOUS CATHETERS AND RADIOFREQUENCY ENERGY Right 11/14/2019 RIGHT AVF stage I EXPLORATORY LAPAROTOMY CELIOTOMY W/WO BIOPSY SPX 2006 Laparotomy, exp IR VENOUS FISTULAGRAM Left 01/22/2019 Left SC balloon PAST SURGICAL HISTORY OF Left 05/16/2019 LUE DRIL (proximal brachial to distal brachial artery bypass with RLE rGSV REDUCTION OF LARGE BREAST 1989 SALPINGECTOMY OR [...] Brother lung cancer Coronary Artery Disease Brother aug. [place] 57 y.o. No Known Problems Maternal Grandmother No Known Problems Maternal Grandfather No Known Problems Paternal Grandmother No Known Problems Paternal Grandfather SOCIAL HISTORY Social History Tobacco Use Smoking status: Former Packs/day: 1.50 Years: 3.00 Pack years: 4.50 Types: Cigarettes Quit date: 09/04/2005 Years since quittin.8 Smokeless tobacco: Never Tobacco comments: quit march 10 Vaping Use Vaping Use: Never used Substance Use Topics Alcohol use: No Drug use: No REVIEW OF SYSTEMS Abdomen: No abdominal pain, nausea, vomiting, diarrhea, or constipation. No bloating, early satiety, indigestion, or increased flatulence. Bladder: No dysuria, gross hematuria, urinary frequency, urinary urgency, or incontinence Breast: No breast lumps, nipple d/c, overlying skin changes, redness or skin retraction Allergies and current medication updated:Yes EXAM: BP 132/64 Wt 145 lb 3.2 oz (65.9kg) GENERAL: pleasant, female in no apparent distress HEENT: Normocephalic, atraumatic, and mucus membranes moist NECK: Supple and full range of motion DERMATOLOGY: Normal and without lesions BREAST: soft, non-tender, symmetric, no dominant mass, normal nipple-areolar complex, no lymphadenopathy, and no nipple discharge CHEST: Normal inspiratory effort ABDOMEN: soft, non-tender, and no masses PELVIC: external genitalia normal, normal Bartholin's glands, urethra, [place]'s glands, no vulvar lesions, no cervical lesions, good vaginal support, physiologic discharge present, normal appearing perineal body and perianal region BIMANUAL: no adnexal masses, non-tender, no cervical motion tenderness, and uterus surgically absent RECTOVAGINAL: deferred. NEURO: alert and oriented x3,exam grossly non-focal EXTREMITIES: normal ASSESSMENT/PLAN: 1) Health maintenance: Pap/HPV up to date. Mammogram up to date Nutrition, exercise and routine health maintenance exams reviewed. Colon cancer screening: up to date with screening TSH/lipids/glucose: followed by PCP BACT/YEAST - collected and sent- Reviewed treatment with Monistat 7 OTC for 7 nights 2) Follow up one year or sooner as needed Helen Cuellar APRN.CNM documented in this encounterMi[facility]10-31-2022 History of Present illness Narrative* Santosh Landa RN - 07/04/2022 4:36 PM EDT INSIGHT CDM TELEPHONIC OUTREACH Provider Action/FYI: Routed updates to Dr. Raza Chart reviewed: [facility] ER 06/21/22 Dx: Acute bilateral mastoiditis 07/04/22 Spk with spouse, he noted Sandy was seen at [facility] ED for Ear drainage, Sinus/ Ear infection Pt finished 10 days of oral ATB, did not have medication name available, denies fever or chills, Pt is hydrating and eating well, receiving Hemodialysis as ordered Pt denies needs or concerns Contact made with patient: Yes Patient identified by name and . Discussed care with spouse It s nice talking to you again. As a reminder, this is our bi-weekly check-in where I will be asking you questions about your health. This will only take a few minutes of your time. Is this a good time? Yes Symptoms What Chronic Disease(s) does the patient have: CKD Do you check your blood pressures at home? Yes, Enter readings: Not taken Do you have new or worse shortness of breath with activity? No Do you feel like you are dehydrated for any reason, including not being able to eat or drink normally, or having less urine/much darker urine than normal for you? No Do you check your daily weight at home? Yes, Have you noticed a sudden gain in weight greater than three pounds in a day or three pounds in a week? No Are you having any other symptoms that your PCP needs to know about? Yes Symptom Escalation The patient required an escalation for symptom(s)? No Medications Do you have any questions about taking your medication or which medications you should be on? No Do you need any medication refills at this time, including any of the medications you might take only when needed? No Social We would like to make sure you have what you need so that your basic needs are met- including your personal safety, food, housing and medications? Would you like to speak with a social work user experience team lead to help give you support for any of these needs? No It can be normal to feel anxious or down during a time like this. Would you like to talk to a mental health professional about how you have been feeling? No Closing Thank you for taking the time to talk with me today. We want to work with you to ensure that we arekeeping your medical condition(s) well-controlled and to keep you healthy and out of the doctor's office or hospital. It s also not too late for me to sign you up for automated weekly questionnaires through [employer]. This is an easy way for us to stay connected each week. Are you interested? No, I understand. We can always sign you up in the future if you change your mind. Just as a reminder, will continue to call you every other week to check in on your health. Our calls should take 10-15 minutes or less. Remember, if you have concerns in between our calls, please call your PCP's office right away. Thank you. Enter next patient outreach date for two weeks on the same day of the week as today in the Track PtOutreach and End outreach. Syeda Frost RN July 04, 2022 4:36 PM documented in this encounterMiami [facility] Hospital10-17-2022 Miscellaneous Notes* Telephone Encounter - Leana Griffin RN - 06/20/2022 10:23 AM EDT Called Maribel and advised her that the AVF can be accessed for dialysis Information faxed to [phone] Leana Griffin RN * Telephone Encounter - Christy Ag - 06/20/2022 10:14 AM EDT Maribel called with a message regarding this mutual patient. Would like to know if we're able to cannulate the AV graft. Please advise and call back at [phone] Christy Ag documented in this encounterMiami [facility] Hospital10-13-2022 History of Present illness Narrative* Santosh Landa RN - 06/16/2022 3:05 PM EDT INSIGHT CDM TELEPHONIC OUTREACH Provider Action/FYI: Spk with Pt she reports underwent a Thrombectomy of right AV fistula, it is functioning well, denies pain or signs of infection. Pt reports she has a cold, denies Sob, wheezing or coughing, denies fever or chills. drinking adequate fluids, and resting. 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 Contact made with patient: Yes Patient identified by name and . Discussed care with patient It s nice talking to you again. As a reminder, this is our bi-weekly check-in where I will be asking you questions about your health. This will only take a few minutes of your time. Is this a good time? Yes Symptoms What Chronic Disease(s) does the patient have: CKD Do you check your blood pressures at home? Yes, Enter readings: Not available Do you have new or worse shortness of breath with activity? No Do you feel like you are dehydrated for any reason, including not being able to eat or drink normally, or having less urine/much darker urine than normal for you? No Do you check your daily weight at home? Yes, Have you noticed a sudden gain in weight greater than three pounds in a day or three pounds in a week? No Are you having any other symptoms that your PCP needs to know about? No Symptom Escalation The patient required an escalation for symptom(s)? No Medications Do you have any questions about taking your medication or which medications you should be on? No Do you need any medication refills at this time, including any of the medications you might take only when needed? No Social We would like to make sure you have what you need so that your basic needs are met- including your personal safety, food, housing and medications? Would you like to speak with a social work user experience team lead to help give you support for any of these needs? No It can be normal to feel anxious or down during a time like this. Would you like to talk to a mental health professional about how you have been feeling? No Closing Thank you for taking the time to talk with me today. We want to work with you to ensure that we arekeeping your medical condition(s) well-controlled and to keep you healthy and out of the doctor's office or hospital. It s also not too late for me to sign you up for automated weekly questionnaires through [employer]. This is an easy way for us to stay connected each week. Are you interested? No, I understand. We can always sign you up in the future if you change your mind. Just as a reminder, will continue to call you every other week to check in on your health. Our calls should take 10-15 minutes or less. Remember, if you have concerns in between our calls, please call your PCP's office right away. Thank you. Enter next patient outreach date for two weeks on the same day of the week as today in the Track PtOutreach and End outreach. Syeda Frost RN June 16, 2022 3:05 PM documented in this encounterMiami [facility] Hospital10-05-2022 Miscellaneous Notes* Telephone Encounter - Shyann Walsh - 06/08/2022 1:48 PM EDT Called patient with arrival time of 8:30am for procedure 06/09. Reviewed all roving tester laboratory instructions, patient verbalized understanding. Patient takes asa daily. I could not find asa directions. Per Dr Juan F kim to continue documented in this encounterMiami [facility] Hospital10-05-2022 Miscellaneous Notes* Telephone Encounter - Edie Samayoa LPN - 06/08/2022 1:18 PM EDT Patient notified of below results. Edie Samayoa LPN * Telephone Encounter - Edie Samayoa LPN - 06/08/2022 1:17 PM EDT ----- Message from Ifeoma Schneider APRN.CNP sent at 06/08/2022 12:46 PM EDT ----- Cholesterol levels at goal. 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 Patient should have a refill for a 90 day supply at the pharmacy for both. Placed a call to Bailey at [facility] in [place]. Both prescriptions forrest filled. Fariba Jefferson RN documented in this encounterMiami Valley Hospital09-28-2022 Miscellaneous Notes* Telephone Encounter - Charito Guillen RN - 06/01/2022 4:27 PM EDT Vascular Surgery Access Center Dialysis Center/Dialysis Center Contact [facility], Outside Security Architect Contact (name, number) Were you able to be Dialyzed? Yes Does the patient have a thrill? N/a Type of Access/Location/Problem: RUE, art/venous pressures high (suspect central vein stenosis) some access swelling Recent Intervention (30 days): No CC Vascular Surgeon/Office/Location Surveillance Systems Analyst/Phone Number: ELVIA, Patient Location/Patient phone number home/epic NPO since n/a (Please instruct caller to make patient NPO now) Is the patient on any anticoagulation? no If yes, date and time of last dose (Include anticoagulation instructions under comments) Comments, pt aware, agrees, will get call day p/t by ELVIA Guillen RN documented in this encounterMiami Valley Hospital08-29-2022 Miscellaneous Notes* Telephone Encounter - Leonila Stallworth LPN - 05/02/2022 2:56 PM EDT Bailey with [facility] called to let yo know they received prescription request for Novolog vial and pt's insurance prefers with flex pen. Please advise Pharmacy. Leonila Stallworth LPN documented in this encounterMiami Valley Hospital08-29-2022 Instructions* Patient Instructions* Maldonado Raza MD - 05/02/2022 2:44 PM EDT NON FASTING BLOOD WORK TODAY. documented in this encounterMiami Valley Hospital08-29-2022 History of Present illness Narrative* Maldonado Raza MD - 05/02/2022 2:35 PM EDT This note was created using WAY Systems. Subjective Sandy Bhatti is a 57 year old female. She had no concerns. Diabetes was labile. She was going to in [place] for evaluation for renal transplant. Review of Systems Constitutional: Negative. Respiratory: Negative. Cardiovascular: Positive for leg swelling. Negative for chest pain and palpitations. Gastrointestinal: Negative. Genitourinary: Negative. Neurological: Negative. ACTIVE PROBLEM LIST Controlled Type 2 Diabetes Mellitus Without Complication, With Long-Term Current Use of Insulin (Hcc) Htn (Hypertension) Hyperlipidemia Depression Hypothyroid Ascvd (Arteriosclerotic Cardiovascular Disease) Proteinuria Esrd On Dialysis (Hcc) Vt (Ventricular Tachycardia) (Hcc) Steal Syndrome Dialysis Vascular Access (Hcc) Esrd (End Stage Renal Disease) (Hcc) Ventral Hernia With Obstruction, Without Gangrene PAST SURGICAL HISTORY Procedure Laterality Date APPENDECTOMY 1992 AV ANASTOMIES OPEN;BY BASILIC VEIN WINN Right 04/20/2020 transpose basilic vein fistula, R arm AV FISTULA OR GRAFT VENOUS Left 10/04/2017 AV FISTULA OR GRAFT VENOUS Left 09/20/2018 redo, failure to mature AV FISTULA OR GRAFT VENOUS Right 04/21/2021 BOWEL RESECTION HX 2006 CHOLECYSTECTOMY 1985 Cholecystectomy COLOSTOMY/SKIN LEVEL CECOSTOMY 2006 [id number], reversed 2006 CREATION OF AVF, PERCUTANEOUS USING MAGNETIC-GUIDED ARTERIAL AND VENOUS CATHETERS AND RADIOFREQUENCY ENERGY Right 11/14/2019 RIGHT AVF stage I EXPLORATORY LAPAROTOMY CELIOTOMY W/WO BIOPSY SPX 2006 Laparotomy, exp IR VENOUS FISTULAGRAM Left 01/22/2019 Left SC balloon PAST SURGICAL HISTORY OF Left 05/16/2019 LUE DRIL (proximal brachial to distal brachial artery bypass with RLE rGSV REDUCTION OF LARGE BREAST 1989 SALPINGECTOMY OR OOPHERECTOMY-ECTOPIC 1986 SLING OPER STRES INCONTINENCE 1998 TOTAL ABDOMINAL HYSTERECT W/WO RMVL TUBE OVARY 1991 Hysterectomy, RUSSELL Social History Tobacco Use Smoking status: Former Packs/day: 1.50 Years: 3.00 Pack years: 4.50 Types: Cigarettes Quit date: 09/04/2005 Years since quittin.6 Smokeless tobacco: Never Tobacco comments: quit march 10 Vaping Use Vaping Use: Never used Substance Use Topics Alcohol use: No Drug use: No ALLERGIES Allergen Reactions Codeine GI Upset Latex Hives 2005 had reaction after surgery Penicillins Swelling Chlorhexidine Rash Current Outpatient Medications Medication Sig levothyroxine (SYNTHROID) 125 mcg tablet Take 1 tablet by mouth once daily. Take on empty stomach. For Thyroid atorvastatin (LIPITOR) 40 mg tablet Take 1 tablet by mouth daily at bedtime. amLODIPine (NORVASC) 5 mg tablet Take 1 tablet by mouth once daily. cloNIDine HCl (CATAPRES) 0.3 mg tablet Take 1 tablet by mouth daily at bedtime. lisinopril (ZESTRIL, PRINIVIL) 40 mg tablet Take 1 tablet by mouth once daily. Insulin Syringe-Needle U-100 (BD INSULIN SYRINGE ULTRA-FINE) 1 mL 29 gauge x 1/2 Use twice daily as directed. SUMAtriptan (IMITREX) 50 mg tablet Take one tablet by mouth at onset of migraine. May repeat in 2 hours if ineffective ferric citrate 210 mg iron tab Take 1 tablet by mouth once daily. docusate sodium (COLACE) 100 mg capsule Take 1 capsule by mouth twice daily as needed for Constipation. nitroglycerin sublingual (NITROQUICK) 0.4 mg SL tablet Dissolve 0.4 mg under the tongue every 5 minutes as needed. NEPHRO-PETEY 0.8 mg tab Take 1 tablet by [...] 1 tablet by mouth once daily. insulin detemir U-100 (LEVEMIR FLEXTOUCH U-100 INSULIN) 100 unit/mL (3 mL) injection pen Inject 48 Units subcutaneously daily at bedtime. insulin aspart U-100 (NOVOLOG U-100 INSULIN ASPART) 100 unit/mL Inject 8 Units subcutaneously threetimes daily before meals. Add 1 units for each 50 mg/dL above 150. peg 3350-Electrolytes (GOLYTELY) 236-22.74-6.74 -5.86 gram suspension Refer to printed prep instructions from your provider. (Patient not taking: Reported on 05/02/2022) insulin needles, DISPOSABLE, (PEN NEEDLE) 31 gauge x 5/16 Use one needle per dose. one per day. (Patient not taking: No sig reported) No current facility-administered medications for this visit. Objective BP 129/65 (BP Site: Left Arm, BP Position: Sitting, BP Cuff Size: Large Adult) Pulse 102 Temp 36.1 C (97 F) (Temporal) Resp 20 Wt 66.2 kg (146 lb) BMI 25.86 kg/m Physical Exam Constitutional: Appearance: She is not ill-appearing. HENT: Head: Normocephalic. Eyes: General: No scleral icterus. Conjunctiva/sclera: Conjunctivae normal. Cardiovascular: Rate and Rhythm: Regular rhythm. Tachycardia present. Heart sounds: No murmur heard. No gallop. Pulmonary: Breath sounds: Normal breath sounds. Abdominal: Palpations: Abdomen is soft. Tenderness: There is no abdominal tenderness. Musculoskeletal: Right lower le+ Edema present. Left lower le+ Edema present. Neurological: General: No focal deficit present. Mental Status: She is alert. Assessment and Plan 1. Screening for cervical cancer - ICD9: V76.2, ICD10: Z12.4 (primary diagnosis) - CONSULT TO GYNECOLOGY 2. Controlled type 2 diabetes mellitus without complication, with long-term current use of insulin (HCC) - ICD9: 250.00, V58.67, ICD10: E11.9, Z79.4 poorly controlled - Continue current medications - LEVEMIR FLEXTOUCH U-100 INSULIN 100 UNIT/ML (3 ML) SUBCUTANEOUS PEN - INSULIN ASPART U-100 100 UNIT/ML SUBCUTANEOUS SOLUTION - CONSULT TO OPHTHALMOLOGY - CBC - BASIC METABOLIC PNL - HGB A1C - LIPID PANEL, NONFASTING 3. ESRD on dialysis (HCC) - ICD9: 585.6, V45.11, ICD10: N18.6, Z99.2 Being evaluated for renal transplant at [facility]. - CBC Maldonado Raza MD documented in this encounterMiami Valley Hospital08-19-2022 History of Present illness Narrative* Santosh Landa RN - 04/22/2022 9:56 AM EDT INSIGHT CDM TELEPHONIC OUTREACH Provider Action/FYI: Spk to Pt she reports the Dialysis Center lost their water supply today, she could only receive part of her Dialysis treatment. Pt denies any UTI or other symptoms or needs. Contact made with patient: Yes Patient identified by name and . Discussed care with patient It s nice talking to you again. As a reminder, this is our bi-weekly check-in where I will be asking you questions about your health. This will only take a few minutes of your time. Is this a good time? Yes Symptoms What Chronic Disease(s) does the patient have: CKD Do you check your blood pressures at home? No Do you have new or worse shortness of breath with activity? No Do you feel like you are dehydrated for any reason, including not being able to eat or drink normally, or having less urine/much darker urine than normal for you? No Do you check your daily weight at home? Yes, Have you noticed a sudden gain in weight greater than three pounds in a day or three pounds in a week? No Are you having any other symptoms that your PCP needs to know about? No Symptom Escalation The patient required an escalation for symptom(s)? No Medications Do you have any questions about taking your medication or which medications you should be on? No Do you need any medication refills at this time, including any of the medications you might take only when needed? No Social We would like to make sure you have what you need so that your basic needs are met- including your personal safety, food, housing and medications? Would you like to speak with a social work user experience team lead to help give you support for any of these needs? No It can be normal to feel anxious or down during a time like this. Would you like to talk to a mental health professional about how you have been feeling? No Closing Thank you for taking the time to talk with me today. We want to work with you to ensure that we arekeeping your medical condition(s) well-controlled and to keep you healthy and out of the doctor's office or hospital. It s also not too late for me to sign you up for automated weekly questionnaires through [employer]. This is an easy way for us to stay connected each week. Are you interested? No, I understand. We can always sign you up in the future if you change your mind. Just as a reminder, will continue to call you every other week to check in on your health. Our calls should take 10-15 minutes or less. Remember, if you have concerns in between our calls, please call your PCP's office right away. Thank you. Enter next patient outreach date for two weeks on the same day of the week as today in the Track PtOutreach and End outreach. Syeda Frost RN April 22, 2022 9:56 AM documented in [facility] encounter[facility]08-18-[facility]22 History of Present illness Narrative* Santosh Landa RN - 04/21/2022 10:41 AM EDT [facility] Provider Action/FYI: Call to Pt to verify ESRD status or other symptoms or needs, left a message. Contact made with patient: No - Left message Erica my name is Syeda Frost RN your Manager Residential from the [facility] I am callingtoday for your bi-weekly check in. I am sorry I missed your call. I will reach out to you again tomorrow. (if the third call I will reach out to you again next week) Enter next patient outreach date for the following day using the Track Pt Outreach. End outreach. Syeda Frost RN April 21, 2022 10:41 AM * Santosh Landa RN - 04/19/2022 2:09 PM EDT [facility] Provider Action/FYI: Call to Pt to verify ESRD status or other symptoms or needs, left a message. Contact made with patient: No - Left message Erica my name is Syeda Frost RN your Manager Residential from the [facility] I am callingtoday for your bi-weekly check in. I am sorry I missed your call. I will reach out to you again tomorrow. (if the third call I will reach out to you again next week) Enter next patient outreach date for the following day using the Track Pt Outreach. End outreach. Syeda Frost RN April 19, 2022 2:09 PM documented in this encounterMi[facility]08-01-2022 History of Present illness Narrative* Santosh Landa RN - 04/04/2022 3:17 PM EDT [facility] Provider Action/FYI: Spk with Pt she has Dialysis Mon/ Mon/ Monday, maintaining fluid limit 32-36 oz Pt denies needs or concerns. Contact made with patient: Yes Patient identified by name and . Discussed care with patient It s nice talking to you again. As a reminder, this is our bi-weekly check-in where I will be asking you questions about your health. This will only take a few minutes of your time. Is this a good time? Yes Symptoms What Chronic Disease(s) does the patient have: CKD Do you check your blood pressures at home? Yes, Enter readings: Not available Do you have new or worse shortness of breath with activity? No Do you feel like you are dehydrated for any reason, including not being able to eat or drink normally, or having less urine/much darker urine than normal for you? No Do you check your daily weight at home? Yes, Have you noticed a sudden gain in weight greater than three pounds in a day or three pounds in a week? No Are you having any other symptoms that your PCP needs to know about? No Symptom Escalation The patient required an escalation for symptom(s)? No Medications Do you have any questions about taking your medication or which medications you should be on? No Do you need any medication refills at this time, including any of the medications you might take only when needed? No Social We would like to make sure you have what you need so that your basic needs are met- including your personal safety, food, housing and medications? Would you like to speak with a social work user experience team lead to help give you support for any of these needs? No It can be normal to feel anxious or down during a time like this. Would you like to talk to a mental health professional about how you have been feeling? No Closing Thank you for taking the time to talk with me today. We want to work with you to ensure that we arekeeping your medical condition(s) well-controlled and to keep you healthy and out of the doctor's office or hospital. It s also not too late for me to sign you up for automated weekly questionnaires through [employer]. This is an easy way for us to stay connected each week. Are you interested? No, I understand. We can always sign you up in the future if you change your mind. Just as a reminder, will continue to call you every other week to check in on your health. Our calls should take 10-15 minutes or less. Remember, if you have concerns in between our calls, please call your PCP's office right away. Thank you. Enter next patient outreach date for two weeks on the same day of the week as today in the Track PtOutreach and End outreach. Syeda Frost RN April 04, 2022 3:17 PM documented in this encounterMiami [facility]07-27-2022 History of Present illness Narrative* Ms. Sandy Bhatti is a 57-year-old female with a history of ESRD secondary to type 2 diabetes-currently on dialysis Monday through right upper extremity AV fistula. Her dialysis start date is 02/14/2018 gets dialysis at [facility] and her stock unloader is . * -Patient have history of kidney stones and calcified ureters. * -Patient had several miscarriages x5, had blood transfusion in 2006. * -Denied any significant psychiatric history other than anxiety managed by primary care doctor. * -Dialysis history: Currently in center hemodialysis no issues recently, misses dialysis monthly at least once if she does not feel good otherwise been compliant with dialysis. Never had any kidney biopsy. * -Other history: History of CVA in with TIA, no significant deficits, left arm steal syndrome s/p repair, type 2 diabetes well controlled, hypothyroidism on levothyroxine. * Surgical history: * -History of appendectomy, bowel perforation with extensive laparotomy and colostomy with reversal in 2006.. Cholecystectomy * Family history: Younger brother currently had a kidney transplant his kidney failed due to diabetes, mother and dad already . 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 * -Used to do marijuana 6 to 7 years ago currently quit. Quit alcohol and used to smoke years ago. [employer] Work Phone: 1(559) 904-781507-15-2022 History of Present illness Narrative* Santosh Landa RN - 03/18/2022 1:44 PM EDT [facility] Provider Action/FYI: Call to to Pt verify ESRD status or other symptoms or needs, left a message. Contact made with patient: No - Left message Helcharu my name is Syeda Frost RN your Manager Residential [facility] the [facility] I am callingtoday for your bi-weekly check in. I am sorry I missed your call. I will reach out to you again tomorrow. (if the third call I will reach out to you again next week) Enter next patient outreach date for the following day using the Track Pt Outreach. End outreach. Syeda Frost RN March 18, 2022 1:44 PM documented in this encounterMiami [facility] Hospital07-07-2022 Miscellaneous Notes* Telephone Encounter - Linda Valencia LPN - 03/10/2022 4:24 PM EDT Pt seen 11/26/21 with pcp. Next appt is 03/23/22. * Telephone Encounter - Yessica Schuster - 03/10/2022 11:29 AM EDT Patient has been identified by name and date of : Yes Spouse phones for refill(s): Pending Prescriptions Disp Refills ATORVASTATIN 40 MG TABLET 90 tablet 0 Sig: Take 1 tablet by mouth daily at bedtime. TODD: No AMLODIPINE 5 MG TABLET 30 tablet 0 Sig: Take 1 tablet by mouth once daily. TODD: No CLONIDINE HCL 0.3 MG TABLET 90 tablet 1 Sig: Take 1 tablet by mouth daily at bedtime. TODD: No Date of last office visit in primary care: 11/26/2021 Last 2 Encounter Wt Readings: Date: Wt: 11/30/2021 148 lb (67.1 kg) 11/16/2021 147 lb (66.7 kg) Previous labs/tests for medication: Not applicable Please advise. Thank you. Yessica Schuster documented in this encounterMiami [facility] Hospital06-16-2022 History of Present illness Narrative* Santosh Landa RN - 02/17/2022 11:04 AM EDT [facility] Provider Action/FYI: Call to to Pt verify ESRD status or other symptoms or needs, mailbox is full unable to leave a message. Contact made with patient: No - unable to leave a message Erica my name is Sydea Frost RN your Manager Residential [facility] I am callingtoday for your bi-weekly check in. I am sorry I missed your call. I will reach out to you again tomorrow. (if the third call I will reach out to you again next week) Enter next patient outreach date for the following day using the Track Pt Outreach. End outreach. Syeda Frost RN February 17, 2022 11:04 AM documented in this encounterMiami [facility] Hospital06-15-2022 History of Present illness Narrative* Santosh Landa RN - 02/16/2022 1:31 PM EDT [facility] Provider Action/FYI: Call to Pt related to ESRD unable to leave a message, mail box is full. Contact made with patient: No - Unable to leave message Entered next patient outreach date for the following business day, if third call please enter next outreach date for one week in the Track Pt. Outreach - End Outreach Syeda Frost RN February 16, 2022 1:31 PM * Santosh Landa RN - 02/14/2022 12:14 PM EDT [facility] Provider Action/FYI: Call to Pt related to ESRD unable to leave a message, mail box is full. Contact made with patient: No - Unable to leave message Entered next patient outreach date for the following business day, if third call please enter next outreach date for one week in the Track Pt. Outreach - End Outreach Syeda Frost RN February 14, 2022 12:14 PM documented in this encounterMiami [facility] Hospital05-27-2022 History of Present illness Narrative* Santosh Landa RN - 01/28/2022 9:52 AM EDT [facility] Provider Action/FYI: Spk with Pt she reported finished dialysis Mon/ Mon/ Monday, access via Fistula in Right upper arm,maintains fluid limit 32-36 oz wt 145 lbs Completed dialysis today, Pt reports BP drops after treatment, she denies feeling lightheaded or dizziness, instructed on fall prevention, Pt verbalized understanding. Urine is light to medium color, denies blood in urine or UTI or other symptoms. Denies needs or concerns Contact made with patient: Yes Patient identified by name and . Discussed care with patient It s nice talking to you again. As a reminder, this is our bi-weekly check-in where I will be asking you questions about your health. This will only take a few minutes of your time. Is this a good time? Yes Symptoms What Chronic Disease(s) does the patient have: CKD Do you check your blood pressures at home? Yes, Enter readings: Not available Do you have new or worse shortness of breath with activity? No Do you feel like you are dehydrated for any reason, including not being able to eat or drink normally, or having less urine/much darker urine than normal for you? No Do you check your daily weight at home? Yes, Have you noticed a sudden gain in weight greater than three pounds in a day or three pounds in a week? No Are you having any other symptoms that your PCP needs to know about? No Symptom Escalation The patient required an escalation for symptom(s)? No Medications Do you have any questions about taking your medication or which medications you should be on? No Do you need any medication refills at this time, including any of the medications you might take only when needed? No Social We would like to make sure you have what you need so that your basic needs are met- including your personal safety, food, housing and medications? Would you like to speak with a social work user experience team lead to help give you support for any of these needs? No It can be normal to feel anxious or down during a time like this. Would you like to talk to a mental health professional about how you have been feeling? No Closing Thank you for taking the time to talk with me today. We want to work with you to ensure that we arekeeping your medical condition(s) well-controlled and to keep you healthy and out of the doctor's office or hospital. It s also not too late for me to sign you up for automated weekly questionnaires through [employer]. This is an easy way for us to stay connected each week. Are you interested? No, I understand. We can always sign you up in the future if you change your mind. Just as a reminder, will continue to call you every other week to check in on your health. Our calls should take 10-15 minutes or less. Remember, if you have concerns in between our calls, please call your PCP's office right away. Thank you. Enter next patient outreach date for two weeks on the same day of the week as today in the Track PtOutreach and End outreach. Syeda Frost RN January 28, 2022 9:52 AM * Santosh Landa RN - 01/27/2022 12:09 PM EDT [facility] Provider Action/FYI: Call to Pt to verify ESRD status and needs, unable to leave a message, mail box is full. Contact made with patient: No - Unable to leave message Entered next patient outreach date for the following business day, if third call please enter next outreach date for one week in the Track Pt. Outreach - End Outreach Syeda Frost RN January 27, 2022 12:09 PM documented in this encounterMiami [facility] Hospital05-12-2022 Miscellaneous Notes* Telephone Encounter - Lisa Mcdonough RN - 01/13/2022 12:27 PM EDT Patient has been identified by name and date of : Yes Patient phones for refill(s): Pending Prescriptions Disp Refills ATORVASTATIN 40 MG TABLET 90 tablet 0 Sig: Take 1 tablet by mouth daily at bedtime. TODD: No AMLODIPINE 5 MG TABLET 30 tablet 1 Sig: Take 1 tablet by mouth once daily. Date of last office visit in primary care: 11/26/21 Future visit: 01/18/22 Last 2 Encounter Wt Readings: Date: Wt: 11/30/2021 67.1 kg (148 lb) 11/16/2021 66.7 kg (147 lb) Previous labs/tests for medication: Cholesterol: HDL Cholesterol (mg/dL) Date Value 03/30/2021 55 LDL Cholesterol (mg/dL) Date Value 03/30/2021 57 ALT (U/L) Date Value 11/12/2019 23 Non HDL Cholesterol, Nonfasting (mg/dL) Date Value 03/10/2021 81 Non HDL Cholesterol (mg/dL) Date Value 03/30/2021 78 Blood Pressure: BUN (mg/dL) Date Value 04/23/2021 22 04/23/2021 22 Sodium (mmol/L) Date Value 04/23/2021 137 04/23/2021 136 Last 1 Encounter BP Readings: Date: BP: 11/30/2021 154/54 Liver Function: ALT (U/L) Date Value 11/12/2019 23 AST (U/L) Date Value 11/12/2019 40 Please advise. Thank you. Lisa Mcdonough, RN documented in this encounterMiami Valley Hospital05-11-2022 History of Present illness Narrative* Santosh Landa RN - 01/12/2022 11:00 AM EDT [facility] Provider Action/FYI: Spk with Pt who report no UTI symptoms, voids 3-4 or more daily, urine is light yellow color. Receives Dialysis Mon/Mon/Monday, follows a renal diet, maintains fluid limit 32-36 oz Pt denies needs or concerns Contact made with patient: Yes Patient identified by name and . Discussed care with patient It s nice talking to you again. As a reminder, this is our bi-weekly check-in where I will be asking you questions about your health. This will only take a few minutes of your time. Is this a good time? Yes Symptoms What Chronic Disease(s) does the patient have: CKD Do you check your blood pressures at home? Yes, Enter readings: Not taken Do you have new or worse shortness of breath with activity? No Do you feel like you are dehydrated for any reason, including not being able to eat or drink normally, or having less urine/much darker urine than normal for you? No Do you check your daily weight at home? Yes, Have you noticed a sudden gain in weight greater than three pounds in a day or three pounds in a week? No Are you having any other symptoms that your PCP needs to know about? No Symptom Escalation The patient required an escalation for symptom(s)? No Medications Do you have any questions about taking your medication or which medications you should be on? No Do you need any medication refills at this time, including any of the medications you might take only when needed? No Social We would like to make sure you have what you need so that your basic needs are met- including your personal safety, food, housing and medications? Would you like to speak with a social work user experience team lead to help give you support for any of these needs? No It can be normal to feel anxious or down during a time like this. Would you like to talk to a mental health professional about how you have been feeling? No Closing Thank you for taking the time to talk with me today. We want to work with you to ensure that we arekeeping your medical condition(s) well-controlled and to keep you healthy and out of the doctor's office or hospital. It s also not too late for me to sign you up for automated weekly questionnaires through [employer]. This is an easy way for us to stay connected each week. Are you interested? No, I understand. We can always sign you up in the future if you change your mind. Just as a reminder, will continue to call you every other week to check in on your health. Our calls should take 10-15 minutes or less. Remember, if you have concerns in between our calls, please call your PCP's office right away. Thank you. Enter next patient outreach date for two weeks on the same day of the week as today in the Track PtOutreach and End outreach. Syeda Frost RN January 12, 2022 11:01 AM documented in this encounterMiami [facility] Hospital05-09-2022 Miscellaneous Notes* Telephone Encounter - Harvey Ford RN - 01/10/2022 7:41 PM EDTSummary: Transplant initial contact Spoke with patient regarding kidney transplant referral, intake initiated. Patient has not had the COVID vaccine(s), and not ready at this time to get it. She understands that she cannot enter into the program without it and has the phone number to call if she changes her mind. Harvey Ford RN documented in this encounterMiami Valley Hospital05-06-2022 Miscellaneous Notes* Telephone Encounter - Harvey Ford RN - 01/07/2022 8:58 AM EDTSummary: 2nd attempt for pre transplant contect Attempted to call patient 2nd time. Both numbers were from the referral form, 1st one no answer after 22 rings; mobile phone # from form , fast busy. Looked at the demographics sheet and called the home # which had a full mailbox, did state her nameon the mailbox. The last number was mobile phone from the demographics sheet which was a working number and I left a VM. Harvey oFrd RN documented in this encounterMiami Valley Hospital04-26-2022 Miscellaneous Notes* Telephone Encounter - Harvey Ford RN - 12/28/2021 2:42 PM EDTSummary: attempted intake Called patient regarding intake for transplant. Unable to leave message, voicemail never came on. Also, called on home phone without success, fast busy. Harvey Ford RN documented in this encounterMiami [facility] Hospital04-26-2022 History of Present illness Narrative* Santosh Landa RN - 12/28/2021 10:43 AM EDT [facility] Provider Action/FYI: Spk with Pt who denies new or worsening CKD or other symptoms. BP 126/56, wt 149 lbs, Pt notes UTI symptoms resolved, denies blood in her urine, constipation is intermittent, improved with stool softeners Pt maintains fluid limit 32-36 oz Pt denies needs or concerns Contact made with patient: Yes Patient identified by name and . Discussed care with patient It s nice talking to you again. As a reminder, this is our bi-weekly check-in where I will be asking you questions about your health. This will only take a few minutes of your time. Is this a good time? Yes Symptoms What Chronic Disease(s) does the patient have: CKD Do you check your blood pressures at home? Yes, Enter readings: 126/56 Do you have new or worse shortness of breath with activity? No Do you feel like you are dehydrated for any reason, including not being able to eat or drink normally, or having less urine/much darker urine than normal for you? No Do you check your daily weight at home? Yes, Have you noticed a sudden gain in weight greater than three pounds in a day or three pounds in a week? No Are you having any other symptoms that your PCP needs to know about? No Symptom Escalation The patient required an escalation for symptom(s)? No Medications Do you have any questions about taking your medication or which medications you should be on? No Do you need any medication refills at this time, including any of the medications you might take only when needed? No Social We would like to make sure you have what you need so that your basic needs are met- including your personal safety, food, housing and medications? Would you like to speak with a social work user experience team lead to help give you support for any of these needs? No It can be normal to feel anxious or down during a time like this. Would you like to talk to a mental health professional about how you have been feeling? No Closing Thank you for taking the time to talk with me today. We want to work with you to ensure that we arekeeping your medical condition(s) well-controlled and to keep you healthy and out of the doctor's office or hospital. It s also not too late for me to sign you up for automated weekly questionnaires through [employer]. This is an easy way for us to stay connected each week. Are you interested? No, I understand. We can always sign you up in the future if you change your mind. Just as a reminder, will continue to call you every other week to check in on your health. Our calls should take 10-15 minutes or less. Remember, if you have concerns in between our calls, please call your PCP's office right away. Thank you. Enter next patient outreach date for two weeks on the same day of the week as today in the Track PtOutreach and End outreach. Syeda Frost RN December 28, 2021 10:44 AM documented in this encounterMiami [facility] Hospital04-25-2022 History of Present illness Narrative* Santosh Landa RN - 12/27/2021 9:45 AM EDT [facility] Provider Action/FYI: Call to Pt unable to leave a message, mail box is full. Contact made with patient: No - Unable to leave message Entered next patient outreach date for the following business day, if third call please enter next outreach date for one week in the Track Pt. Outreach - End Outreach Syeda Frost RN December 27, 2021 9:45 AM documented in this encounterAlexander [place] [address]-22-2022 Miscellaneous Notes* Telephone Encounter - Leonila Dela Cruz - 12/24/2021 4:00 PM EDT Pt notified and verbalized understanding. Leonila Dela Cruz * Telephone Encounter - Von Chaney PA-C - 12/24/2021 3:55 PM EDT Nothing if doing well, if still having uti appt then /ALYSA Umaña MT, PA-C * Telephone Encounter - Leonila Dela Cruz - 12/23/2021 3:20 PM EDT Von Chaney PA-C Not cystoscope a this time, she had E coli UTI on original work up for hematuria, and it cleared w antibiotics, so need to see if same or different ALYSA Umaña MT, PA-C * Telephone Encounter - Leonila Dela Cruz - 12/22/2021 11:28 AM EDT Pt notifed of results. Pt asking if she needs to have scope. Im not sure if she is talking about colonoscopy or cystoscopy. Also, when is patient to follow up? Please review and advise. Leonila Dela Cruz MA * Telephone Encounter - Krys Epperson LPN - 12/22/2021 8:36 AM EDT Called patient, no answer Mailbox is now full and cannot accept new messages. Krys Epperson LPN * Telephone Encounter - Von Chaney PA-C - 12/21/2021 9:00 PM EDT This is skin bacteria and no need for antibiotics with this result ALYSA Umaña MT, PA-C * Telephone Encounter - Leonila Dela Cruz - 12/21/2021 3:18 PM EDT Final result Visible to patient: No (inaccessible in MyChart) Dx: Acute cystitis with hematuria Culture 10,000 -<50,000 CFU/ml Streptococcus anginosus Abnormal No susceptibility testing done. <10,000 CFU/ml Normal urogenital micaela Please review and advise. Leonila Dela Cruz MA * Telephone Encounter - Carlene Ospina LPN - 12/21/2021 1:46 PM EDT asking if urine culture results are available? Please advise. Carlene Ospina LPN documented in this encounterMiami Valley Hospital04-12-2022 Miscellaneous Notes* Telephone Encounter - Krys Epperson LPN - 12/14/2021 8:48 AM EDT Phoned patient and made aware lab is ordered at [facility]. Verbalizes understanding. Krys Epperson LPN * Telephone Encounter - Von Chaney PA-C - 12/13/2021 6:48 PM EDT Orders already in for urine culture ALYSA Umaña MT, PA-C * Telephone Encounter - Krys Epperson LPN - 12/13/2021 3:40 PM EDT Images from the original note were not included. Attempted to call patient on home number. Unable to leave voicemail. According to records lab is ordered for [facility] lab. Krys Epperson LPN * Telephone Encounter - Bonita Steele RN - 12/13/2021 1:38 PM EDT Spoke to pt. States hematuria is cleared up. Pt. wondering where she is to have labwork done at ([facility] or [facility])? Wondering where order was sent? Please advise and notify pt. Bonita Steele RN * Telephone Encounter - Krys Epperson LPN - 12/13/2021 11:36 AM EDT Called mobile number and told to call home number. Called home number and went to voicemail that isfull and cannot leave message. Krys Epperson LPN * Telephone Encounter - Von Chaney PA-C - 12/10/2021 6:25 PM EDT Given her urine culture revealing E Coli in light of the hematuria , no plan for a cystoscopy at this time but will follow up and if she continues to have hematuria then will recommend the Cystoscopyat that time. Von Chaney MPAS, MT, RASHAD * Telephone Encounter - Edie Samayoa LPN - 12/09/2021 12:26 PM EDT Patient notified of below results/recommendation. Advised PSS will be contacting her to schedule surgical consult. Forwarding not to Ritu also. Edie Samayoa LPN * Telephone Encounter - Maldonado Raza MD - 12/09/2021 10:00 AM EDT 1) No acute findings with kidneys and bladder. She will likely need a cystoscopy. Thomas Chaney might be setting this up. 2) Incidentally is a ventral hernia, with chronic looking partial small bowel obstruction. Advise ER for anterior abdominal pain with vomiting. Consult surgery for ventral hernia. * Telephone Encounter - Imer Michele LPN - 12/09/2021 8:36 AM EDT Patient calling asking for results of CT to check for kidney stones. Please advise 12/06/2021 8:02 PM - Radiology, O[place] In Impression IMPRESSION: Both kidneys show no evidence of nephrolithiasis or hydroureteronephrosis. Kidneys demonstrate renovascular calcifications and mild perinephric stranding which is likely chronic. Urinary bladder is incompletely distended and not adequately evaluated. Incidental finding of ventral wall hernia containing several mildly prominent loops of small bowel with less distention of distal loops which could indicate chronic mild partial small bowel obstruction. Findings appear chronic. No acute wall thickening or inflammatory change. [employer] Repairer: LINO Transcribe Date/Time: Dec 06 2021 3:21P Dictated by : IMER NOLAND MD This examination was interpreted and the report reviewed and electronically signed by: IMER NOLAND MD on Dec 06 2021 8:00PM EST Results-Findings * * *Final Report* * * DATE OF EXAM: Dec 06 2021 2:51PM [facility] 0529 - CT FLANK WO IVCON / PROCEDURE REASON: Gross hematuria * * * * Physician Interpretation * * * * EXAMINATION: CT ABDOMEN AND PELVIS WITHOUT IV CONTRAST (Renal stone protocol) CLINICAL HISTORY: Gross hematuria TECHNIQUE: Non-contrast imaging of the abdomen and pelvis was performed through the urinary tract. Study performed without intravenous or oral contrast to evaluate for urinary tract calculus. MQ: [id number] Contrast: IV contrast: None Oral contrast: None CT Radiation dose: Integrated dose-length product (DLP) for this visit = 207 mGy*cm. CT Dose Reduction Employed: Automated exposure control(AEC) and iterative recon COMPARISON: There are no prior relevant examinations available for comparison within the [facility]. RESULT: Limitations: Unenhanced imaging is limited for the evaluation of some renal and other intra-abdominal and pelvic pathology. Urinary Tract: Right kidney and ureter: No calculus. No hydroureteronephrosis.. Stranding and renovascular calcifications appear chronic. No finding to suggest cyst or mass in the unenhanced kidney. Left kidney and ureter: No calculus. No hydroureteronephrosis. Stranding and renovascular calcifications appear chronic. No finding to suggest cyst or mass in the unenhanced kidney. Bladder: Urinary bladder is incompletely distended and not adequately evaluated. Abdomen and Pelvis: Liver: No hepatomegaly or focal lesion within the limits of no IV contrast material. Biliary: The gallbladder is surgically absent. Negative biliary dilatation. Spleen: Negative splenomegaly or focal lesion. Pancreas: Pancreas is normal in size, contour and position. No focal masses or ductal dilatation. Adrenals: Both adrenal glands are normal in contour. No focal masses. GI Tract: There is a midline ventral hernia containing loops of small bowel as well as antimesenteric wall of transverse colon. Several the small bowel loops are mildly prominent with the more distal loops slightly less distended reflecting mild partial obstruction. There is no wall thickening or pericolonic bowel wall thickening which suggests chronic process. The appendix is within normal limits. There is negative free air, free fluid or abscess. Mesentery/peritoneum: No focal masses or free fluid. Vasculature: The aorta is normal course and caliber without aneurysmal dilatation. Pelvis: No pelvic mass or abnormal fluid. Normal uterine and adnexal structures. Bones and Soft Tissues: The bony structures are intact. No bony destructive process noted. Incidental hemangioma at T10. Lower thorax: The lung bases are clear. Taper/Finisher (topogram) images: No additional findings. documented in [facility] encounter[facility] History of Present illness Narrative* Santosh Landa RN - 12/10/2021 1:22 PM EDT INSIGHT CD TELEPHONIC OUTREACH Provider Action/FYI: Routed updates to Dr. Raza 12/10/21 Spk with Pt who denies fevers or chills, denies Nausea or vomiting. Pt has intermittent dullAbdominal pain. Pt notes she has not past a stool in one week, has taken 2 Exlax without relief. Pt advised per PCP instructions to be seen in ED for Nausea, vomiting, and advised for worsening Abdominal pain. Instructed can use OTC stool softeners and update PCP for worsening symptom or No BM. Pt verbalizedunderstanding to all instructions. Pt reports she is taking her last Bacrim dose today, she is not having any further blood in her urine. Denies UTI symptoms. Chart reviewed: PCP noted: 1) No acute findings with kidneys and bladder. she will likely need a cystoscopy. Thomas Chaney might be setting this up. 2) Incidentally is a ventral hernia, with chronic looking partial small bowel obstruction. Advise ER for anterior abdominal pain with vomiting. Consult surgery for ventral hernia. Contact made with patient: Yes Patient identified by name and . Discussed care with patient It s nice talking to you again. As a reminder, this is our bi-weekly check-in where I will be asking you questions about your health. This will only take a few minutes of your time. Is this a good time? Yes Symptoms What Chronic Disease(s) does the patient have: CKD Do you check your blood pressures at home? No Do you have new or worse shortness of breath with activity? No Do you feel like you are dehydrated for any reason, including not being able to eat or drink normally, or having less urine/much darker urine than normal for you? No Do you check your daily weight at home? No Are you having any other symptoms that your PCP needs to know about? Yes Symptom Escalation The patient required an escalation for symptom(s)? Yes, Visit (Telehealth, Virtual, or In Office) with PCP within 7 days - Routed to [facility] [[id number]] Medications Do you have any questions about taking your medication or which medications you should be on? No Do you need any medication refills at this time, including any of the medications you might take only when needed? No Social We would like to make sure you have what you need so that your basic needs are met- including your personal safety, food, housing and medications? Would you like to speak with a social work user experience team lead to help give you support for any of these needs? No It can be normal to feel anxious or down during a time like this. Would you like to talk to a mental health professional about how you have been feeling? No Closing Thank you for taking the time to talk with me today. We want to work with you to ensure that we arekeeping your medical condition(s) well-controlled and to keep you healthy and out of the doctor's office or hospital. It s also not too late for me to sign you up for automated weekly questionnaires through [employer]. This is an easy way for us to stay connected each week. Are you interested? No, I understand. We can always sign you up in the future if you change your mind. Just as a reminder, will continue to call you every other week to check in on your health. Our calls should take 10-15 minutes or less. Remember, if you have concerns in between our calls, please call your PCP's office right away. Thank you. Enter next patient outreach date for two weeks on the same day of the week as today in the Track PtOutreach and End outreach. Syeda Frost RN December 10, 2021 1:22 PM documented in this encounterMi[facility]04-[facility] History of Past illness Narrative* Problem Noted Date Diagnosed Date Resolved Date Ventral hernia with obstruct ion, without gangrene 12/09/2021 06/29/2023 ESRD (end stage renal disease) 04/21/2021 06/29/2023 Overview: History: T/Th/Sat Assessment/Plan: IHD today BMP pending Steal syndrome dialysis vascular access 05/17/2019 02/23/2023 CKD (chronic kidney disease) stage V requiring chronic dialysis 03/01/2018 08/29/2019 Overview: Dr. Pendleton, nephrology. CKD (chronic kidney disease) stage 4, GFR 15-29 ml/min 04/05/2017 03/02/2018 Overview: Dr. Nunez, nephrology. CKD (chronic kidney disease) stage 3, GFR 30-59 ml/min 07/17/2013 05/02/2017 Calculus of ureter 06/12/2007 2 Urinary tract infection, site not specified 06/12/2007 03/22/2012 Renal colic 06/12/2007 03/22/2012 Depression 09/04/2006 06/12/2023 documented as of this encounter (statuses as of 06/29/2023) [facility] History of Past illness Narrative* Problem Noted Date Diagnosed Date Resolved Date Ventral hernia with obstruct ion, without gangrene 12/09/2021 06/29/2023 ESRD (end stage renal disease) 04/21/2021 06/29/2023 Overview: History: T/Th/Sat Assessment/Plan: IHD today BMP pending Steal syndrome dialysis vascular access 05/17/2019 02/23/2023 CKD (chronic kidney disease) stage V requiring chronic dialysis 03/01/2018 08/29/2019 Overview: Dr. Pendleton, nephrology. CKD (chronic kidney disease) stage 4, GFR 15-29 ml/min 04/05/2017 03/02/2018 Overview: Dr. Nunez, nephrology. CKD (chronic kidney disease) stage 3, GFR 30-59 ml/min 07/17/2013 05/02/2017 Calculus of ureter 06/12/2007 2 Urinary tract infection, site not specified 06/12/2007 03/22/2012 Renal colic 06/12/2007 03/22/2012 Depression 09/04/2006 06/12/2023 documented as of this encounter (statuses as of 07/03/2023) [facility] of Past illness Narrative* Problem Noted Date Diagnosed Date Resolved Date Ventral hernia with obstruct ion, without gangrene 12/09/2021 06/29/2023 ESRD (end stage renal disease) 04/21/2021 06/29/2023 Overview: History: T/Th/Sat Assessment/Plan: IHD today BMP pending Steal syndrome dialysis vascular access 05/17/2019 02/23/2023 CKD (chronic kidney disease) stage V requiring chronic dialysis 03/01/2018 08/29/2019 Overview: Dr. Pendleton, nephrology. CKD (chronic kidney disease) stage 4, GFR 15-29 ml/min 04/05/2017 03/02/2018 Overview: Dr. Nunez, nephrology. CKD (chronic kidney disease) stage 3, GFR 30-59 ml/min 07/17/2013 05/02/2017 Calculus of ureter 06/12/2007 2 Urinary tract infection, site not specified 06/12/2007 03/22/2012 Renal colic 06/12/2007 03/22/2012 Depression 09/04/2006 06/12/2023 documented as of this encounter (statuses as of 07/09/2023) [facility] of Past illness Narrative* Problem Noted Date Diagnosed Date Resolved Date Ventral hernia with obstruct ion, without gangrene 12/09/2021 06/29/2023 ESRD (end stage renal disease) 04/21/2021 06/29/2023 Overview: History: T/Th/Sat Assessment/Plan: IHD today BMP pending Steal syndrome dialysis vascular access 05/17/2019 02/23/2023 CKD (chronic kidney disease) stage V requiring chronic dialysis 03/01/2018 08/29/2019 Overview: Dr. Pendleton, nephrology. CKD (chronic kidney disease) stage 4, GFR 15-29 ml/min 04/05/2017 03/02/2018 Overview: Dr. Nunez, nephrology. CKD (chronic kidney disease) stage 3, GFR 30-59 ml/min 07/17/2013 05/02/2017 Calculus of ureter 06/12/2007 2 Urinary tract infection, site not specified 06/12/2007 03/22/2012 Renal colic 06/12/2007 03/22/2012 Depression 09/04/2006 06/12/2023 documented as of this encounter (statuses as of 07/17/2023) [facility] of Past illness Narrative* Problem Noted Date Diagnosed Date Resolved Date Ventral hernia with obstruct ion, without gangrene 12/09/2021 06/29/2023 ESRD (end stage renal disease) 04/21/2021 06/29/2023 Overview: History: T/Th/Sat Assessment/Plan: IHD today BMP pending Steal syndrome dialysis vascular access 05/17/2019 02/23/2023 CKD (chronic kidney disease) stage V requiring chronic dialysis 03/01/2018 08/29/2019 Overview: Dr. Pendleton, nephrology. CKD (chronic kidney disease) stage 4, GFR 15-29 ml/min 04/05/2017 03/02/2018 Overview: Dr. Nunez, nephrology. CKD (chronic kidney disease) stage 3, GFR 30-59 ml/min 07/17/2013 05/02/2017 Calculus of ureter 06/12/2007 2 Urinary tract infection, site not specified 06/12/2007 03/22/2012 Renal colic 06/12/2007 03/22/2012 Depression 09/04/2006 06/12/2023 documented as of this encounter (statuses as of 07/17/2023) [facility] of Past illness Narrative* Problem Noted Date Diagnosed Date Resolved Date Ventral hernia with obstruct ion, without gangrene 12/09/2021 06/29/2023 Steal syndrome dialysis vascular access 05/17/2019 02/23/2023 CKD (chronic kidney disease) stage V requiring chronic dialysis 03/01/2018 08/29/2019 Overview: Dr. Pendleton, nephrology. CKD (chronic kidney disease) stage 4, GFR 15-29 ml/min 04/05/2017 03/02/2018 Overview: Dr. Nunez, nephrology. CKD (chronic kidney disease) stage 3, GFR 30-59 ml/min 07/17/2013 05/02/2017 Calculus of ureter 06/12/2007 2 Urinary tract infection, site not specified 06/12/2007 03/22/2012 Renal colic 06/12/2007 03/22/2012 Depression 09/04/2006 06/12/2023 documented as of this encounter (statuses as of 07/31/2023) [facility] History of Present illness Narrative* RT Tiffanie(R) - 12/06/2021 2:20 PM EDT Radiology Service Progress Note PATIENT NAME: Sandy Bhatti DATE OF SERVICE: December 06, 2021 TIME: 3:27 PM PATIENT IDENTITY VERIFICATION COMPLETED USING TWO (2) IDENTIFIERS: Name and Date of confirmedby patient verbally. FALL SCREENING: Has the patient had 2 falls in the last year or 1 fall with injury or currently using an Ambulatory Assistive Device (Walker, Cane, Wheelchair, Crutches, etc.)? No PATIENT GENDER DATA: Female. status: : No status: NO. PATIENT RELEVANT IMPLANT DATA REVIEWED: Not Applicable RADIOLOGY DEPARTMENT: CT; Exam(s) Completed: Abdomen/Pelvis PERIPHERAL IV DATA: Not applicable SIGNED BY: RT Daniel(R) December 06, 2021 3:27 PM documented in this encounterMi[facility]03-29-[facility]22 History of Present illness Narrative* Von Chaney PA-C - 11/30/2021 11:47 AM EDT Images from the original note were not included. PATIENT INFO: Sandy Bhatti 56 year old ( ) REFERRING PROVIDER: Maldonado Raza PCP: Maldonado Raza MD November 30, 2021 HPI: Sandy Bhatti 56 year old female is here today for discussion and evaluation of recent hematuria and flank pain We discussed needing urine culture and Ct flank to check for renal stones If the culture is negative then we will need a full hematuria work-up LUTS: Obstructive - weak stream: no, hesitancy: no, Intermittency: no, Double voiding no post-void dribbling: no incomplete emptying: no Irritative - NTF no Urgency yes Frequency yes Dysuria yes Incontinence no Gross Hematuria yes Microscopic Hematuria no Other symptoms: LABS: No results found for: TESTOST No results found for: TESTFREE No results found for: PSA Hematocrit (%) Date Value 04/23/2021 26.8 04/22/2021 33.5 03/30/2021 34.3 MEDICATIONS: HYDROcodone-acetaminophen (NORCO) 5-325 mg per tablet Take 1 tablet by mouth every 8 hours as needed for pain for up to 5 days. peg 3350-Electrolytes (GOLYTELY) 236-22.74-6.74 -5.86 gram suspension Refer to printed prep instructions from your provider. amLODIPine (NORVASC) 2.5 mg tablet Take 2 tablets by mouth once daily. cloNIDine HCl (CATAPRES) 0.3 mg tablet Take 1 tablet by mouth daily at bedtime. lisinopril (ZESTRIL, PRINIVIL) 40 mg tablet Take 1 tablet by mouth once daily. atorvastatin (LIPITOR) 40 mg tablet Take 1 tablet by mouth daily at bedtime. levothyroxine (SYNTHROID) 125 mcg tablet Take 1 tablet by mouth once daily. Take on empty stomach. For Thyroid insulin detemir U-100 (LEVEMIR FLEXTOUCH U-100 INSULIN) 100 unit/mL (3 mL) injection pen Inject 48 Units subcutaneously daily at bedtime. insulin aspart U-100 (NOVOLOG U-100 INSULIN ASPART) 100 unit/mL Inject 8 Units subcutaneously threetimes daily before meals. Add 1 units for each 50 mg/dL above 150. Insulin Syringe-Needle U-100 (BD INSULIN SYRINGE ULTRA-FINE) 1 mL 29 gauge x 1/2 Use twice daily as directed. SUMAtriptan (IMITREX) 50 mg tablet Take one tablet by mouth at onset of migraine. May repeat in 2 hours if ineffective ferric citrate (AURYXIA) 210 mg iron tab Take 1 tablet by mouth once daily. docusate sodium (COLACE) 100 mg capsule Take 1 capsule by mouth twice daily as needed for Constipation. nitroglycerin sublingual (NITROQUICK) 0.4 mg SL tablet Dissolve 0.4 mg under the tongue every 5 minutes as needed. NEPHRO-PETEY 0.8 mg tab Take 1 tablet by mouth once daily. blood sugar diagnostic (BLOOD GLUCOSE TEST) test strip Test blood sugar(s) 3 times daily. Dx: Type 2 DM - Uncontrolled E11.65 Insulin: Yes Blood-Glucose Meter (BLOOD GLUCOSE MONITORING) monitoring kit 1 Each three times daily. E11.65. On insulin. aspirin, enteric coated (ECOTRIN LOW STRENGTH) 81 mg EC tablet Take 1 tablet by mouth once daily. sulfamethoxazole-trimethoprim (BACTRIM DS) 800-160 mg per tablet Take 1 tablet by mouth twice dailyfor 10 days. insulin needles, DISPOSABLE, (PEN NEEDLE) 31 gauge x 5/16 Use one needle per dose. one per day. PAST MEDICAL HISTORY: PAST MEDICAL HISTORY Diagnosis Date Acute kidney failure ([facility]) 01/14/2018 Acute respiratory failure ([facility]) Anxiety Arterial steal syndrome ([facility]) 12/2018 Left AVF Calculus of ureter 06/12/2007 CKD (chronic kidney disease) stage V requiring chronic dialysis ([facility]) 03/01/2018 Dr. Pendleton, nephrology. Constipation Depression 09/04/2006 GERD (gastroesophageal reflux disease) Hemorrhoids HTN (hypertension) 09/04/2001 Hyperlipidemia 09/04/1999 Hypertrophic cardiomyopathy ([facility]) Proteinuria 06/14/2013 Renal colic 06/12/2007 Steal syndrome dialysis vascular access ([facility]) 05/17/2019 Recent increased left arm swelling, which was not previously present. She had an intervention in January on the mid subclavian vein for outflow stenosis. Her fistula is patent and working well. Assessment: 05/16/19 JOHANNE ELLIOTT (proximal brachial to distal brachial artery bypass with RLE rGSV - LUE fistula site c/d/i, +thrill/bruit, radial pulse palpable - RLE Thyroid disorder Type II or unspecified type diabetes mellitus without mention of complication, not stated as uncontrolled 09/04/1985 VT (ventricular tachycardia) ([facility]) 05/17/2019 History: Per patient, has history of excited rhythm. Sees a housing quality standard inspector in [place], last seen in January 2019. No concerns. She will continue to follow up with them. Assessment: Ventricular tachycardiaintermittently post-op with HR up to 110s. No chest pain or SOB. Troponins sent to monitor. Labs WNL. ECG completed showing BBB (has had on intermittent previous ECG). - 05/17/19 repeat ECG back to PAST SURGICAL HISTORY: PAST SURGICAL HISTORY Procedure Laterality Date APPENDECTOMY 1992 AV ANASTOMIES OPEN;BY BASILIC VEIN WINN Right 04/20/2020 transpose basilic vein fistula, R arm AV FISTULA OR GRAFT VENOUS Left 10/04/2017 AV FISTULA OR GRAFT VENOUS Left 09/20/2018 redo, failure to mature AV FISTULA OR GRAFT VENOUS Right 04/21/2021 BOWEL RESECTION HX 2005 CHOLECYSTECTOMY 1984 Cholecystectomy COLOSTOMY/SKIN LEVEL CECOSTOMY 2006 1188-0515, reversed 2006 CREATION OF AVF, PERCUTANEOUS USING MAGNETIC-GUIDED ARTERIAL AND VENOUS CATHETERS AND RADIOFREQUENCY ENERGY Right 11/14/2019 RIGHT AVF stage I EXPLORATORY LAPAROTOMY CELIOTOMY W/WO BIOPSY SPX 2006 Laparotomy, exp IR VENOUS FISTULAGRAM Left 01/22/2019 Left SC balloon PAST SURGICAL HISTORY OF Left 05/16/2019 LUE LEXI (proximal brachial to distal brachial artery bypass with RLE rGSV REDUCTION OF LARGE BREAST 1989 SALPINGECTOMY OR OOPHERECTOMY-ECTOPIC 1986 SLING OPER STRES INCONTINENCE 1998 TOTAL ABDOMINAL HYSTERECT W/WO RMVL TUBE OVARY 1990 Hysterectomy, RUSSELL FAMILY HISTORY: FAMILY HISTORY Problem Relation Age of Onset Diabetes Mother Coronary Artery Disease Mother COPD Mother dec. age 79 Cancer Mother lung cancer Colon Cancer Father at age 52 Diabetes Sister Hypertension Sister Kidney Disease Brother other (Heart condition) Brother Diabetes Brother Cancer Brother lung cancer Coronary Artery Disease Brother dec. [place] 57 y.o. No Known Problems Maternal Grandmother No Known Problems Maternal Grandfather No Known Problems Paternal Grandmother No Known Problems Paternal Grandfather SOCIAL HISTORY: Social Connections: Not on file REVIEW OF SYSTEMS: GENERAL: No fever, chills, weight loss, or fatigue. ENMT: Negative CARDIOVASCULAR:NO CHEST PAIN, PALPITATIONS, ANKLE EDEMA RESPIRATORY: No chronic cough, wheezing, dyspnea, hemoptysis. GENITOURINARY: SEE HPI MUSCULOSKELETAL:NO CHRONIC BACK PAIN, ARTHRITIS, CHRONIC NECK PAIN SKIN: NO VARICOSE VEINS, RASH, ABNORMAL ITCHING HEME/LYMPH/IMMUNE:Negative for prolonged bleeding, bruising easily or swollen nodes NEUROLOGICAL: NO HEADACHES, NUMBNESS, SEIZURES, STROKE DIABETES: Yes, All other systems reviewed and are negative PHYSICAL EXAMINATION: Blood pressure 154/54, pulse 96, temperature 36.4 C (97.5 F), temperature source Temporal, resp. rate 16, height 160 cm (5' 3), weight 67.1 kg (148 lb), SpO2 100 %. GENERAL: WNL nutrition, no deformities, healthy appearing NEURO: Awake, alert and oriented x 3 and Normal gait PSYCH: No signs of depression, anxiety, or agitation ENMT (Ear, Nose, Mouth, Throat): No masses, adenopathy, icterus. Thyroid nonpalpable RESP: NL effort, no retractions or purse-lip breathing. CV: No extremity swelling, varices, edema, pallor, erythema GASTROINTESTINAL: Soft, nontender, nondistended, no masses. HERNIAS: None SKIN: No rash, lesions No palpable lymphadenopathy MUSCULOSKELETAL: Extremities normal. No deformities, edema, clubbing or skin discoloration. PROBLEM LIST REVIEW: Yes LABS: Results for orders placed or performed in visit on 11/30/21 UA DIP, URINE (POC) Result Value Ref Range GLUCOSE UA (POCT) 100 (A) Negative mg/dL BILIRUBIN UA (POCT) Small (A) Negative KETONE UA (POCT) Trace Negative mg/dL SPECIFIC GRAVITY UA (POCT) 1.020 1.005 - 1.030 HEMOGLOBIN/BLOOD UA (POCT) Large (A) Negative PH UA (POCT) 6.0 4.5 - 8.0 PROTEIN UA (POCT) >=300 (A) Negative mg/dL UROBILINOGEN UA (POCT) 0.2 Normal E.U./dL NITRITE UA (POCT) Negative Negative LEUKOCYTES UA (POCT) Small (A) Negative COLOR UA (POCT) Elvia CLARITY UA (POCT) Cloudy Urine Culture: Pending PROCEDURES: PVR: 0 ml IMAGING: CT Flank - pending IMPRESSION/PLAN: 1. Acute left flank pain > CT Flank fro possible renal Stone 2. Acute cystitis with hematuria > Urine Culture > if negative culture then will need hematuria work up I spent a total of 30 minutes on the date of the service which included preparing to see the patient, face to face patient care, completing clinical documentation, obtaining and/or reviewing separately obtained history, performing a medically appropriate examination, counseling and educating the pat ient/family/caregiver, ordering medications, tests, or procedures, and care coordination. ALYSA Umaña MT, PA-C * Krys Epperson LPN - 11/30/2021 11:42 AM EDT CC Post Void Residual HPI: Sandy Bhatti is a 56 year old female. The patient is here now for an appointment with ALYSA Umaña MT, PA-COV. Procedure: Explained procedure to patient and verbalizes understanding. Performed a PVR. Patient urinated and instructed to empty bladder as much as possible just prior to having PVR done using bladder ultrasound scanner. Results of scan: 0 mL The patient tolerated the procedure well. Plan: [facility] with [facility]. [facility] of Past illness Narrative* Problem Noted Date Resolved Date ESRD (end stage renal disease) 04/21/2021 0 02/23/2023 Overview: History: T//Mon Assessment/Plan: IHD today BMP pending Steal syndrome dialysis vascular access 05/17/20 19 02/23/2023 CKD (chronic kidney disease) stage V requiring chronic dialysis 03/01/2018 08/29/2019 Overview: Dr. Pendleton, nephrology. CKD (chronic kidney disease) stage 4, GFR 15-29 ml/min 04/05/2017 03/02/2018 Overview: Dr. Nunez, nephrology. CKD (chronic kidney disease) stage 3, GFR 30-59 ml/min 07/17/2013 05/02/2017 Calculus of ureter 06/12/2007 03/22/2012 Urinary tract infection, site not specified 05/200703/22/2012 Renal colic 06/12/2007 03/22/2012 documented as of this encounter (statuses as of 02/24/2023) [facility] of Past illness Narrative* Problem Noted Date Diagnosed Date Resolved Date ESRD (end stage renal disease) 04/21/2021 02/23/2023 Overview: History: T/Th/Sat Assessment/Plan: IHD today BMP pending Steal syndrome dialysis vascular access 05/17/2019 02/23/2023 CKD (chronic kidney disease) stage V requiring chronic dialysis 03/01/2018 08/29/2019 Overview: Dr. Pendleton, nephrology. CKD (chronic kidney disease) stage 4, GFR 15-29 ml/min 04/05/2017 03/02/2018 Overview: Dr. Nunez, nephrology. CKD (chronic kidney disease) stage 3, GFR 30-59 ml/min 07/17/2013 05/02/2017 Calculus of ureter 06/12/2007 2 Urinary tract infection, site not specified 06/12/2007 03/22/2012 Renal colic 06/12/2007 03/22/2012 documented as of this encounter (statuses as of 04/06/2023) [facility] Past illness Narrative* Problem Noted Date Diagnosed Date Resolved Date ESRD (end stage renal disease) 04/21/2021 02/23/2023 Overview: History: T//Sat Assessment/Plan: IHD today BMP pending Steal syndrome dialysis vascular access 05/17/2019 02/23/2023 CKD (chronic kidney disease) stage V requiring chronic dialysis 03/01/2018 08/29/2019 Overview: Dr. Pendleton, nephrology. CKD (chronic kidney disease) stage 4, GFR 15-29 ml/min 04/05/2017 03/02/2018 Overview: Dr. Nunez, nephrology. CKD (chronic kidney disease) stage 3, GFR 30-59 ml/min 07/17/2013 05/02/2017 Calculus of ureter 06/12/2007 2 Urinary tract infection, site not specified 06/12/2007 03/22/2012 Renal colic 06/12/2007 03/22/2012 documented as of this encounter (statuses as of 04/06/2023) [facility] illness Narrative* Problem Noted Date Diagnosed Date Resolved Date ESRD (end stage renal disease) 04/21/2021 02/23/2023 Overview: History: T/Th/Sat Assessment/Plan: IHD today BMP pending Steal syndrome dialysis vascular access 05/17/2019 02/23/2023 CKD (chronic kidney disease) stage V requiring chronic dialysis 03/01/2018 08/29/2019 Overview: Dr. Pendleton, nephrology. CKD (chronic kidney disease) stage 4, GFR 15-29 ml/min 04/05/2017 03/02/2018 Overview: Dr. Nunez, nephrology. CKD (chronic kidney disease) stage 3, GFR 30-59 ml/min 07/17/2013 05/02/2017 Calculus of ureter 06/12/2007 2 Urinary tract infection, site not specified 06/12/2007 03/22/2012 Renal colic 06/12/2007 03/22/2012 documented as of this encounter (statuses as of 04/07/2023) [facility] Narrative* Problem Noted Date Diagnosed Date Resolved Date ESRD (end stage renal disease) 04/21/2021 02/23/2023 Overview: History: T/Th/Sat Assessment/Plan: IHD today BMP pending Steal syndrome dialysis vascular access 05/17/2019 02/23/2023 CKD (chronic kidney disease) stage V requiring chronic dialysis 03/01/2018 08/29/2019 Overview: Dr. Pendleton, nephrology. CKD (chronic kidney disease) stage 4, GFR 15-29 ml/min 04/05/2017 03/02/2018 Overview: Dr. Nunez, nephrology. CKD (chronic kidney disease) stage 3, GFR 30-59 ml/min 07/17/2013 05/02/2017 Calculus of ureter 06/12/2007 2 Urinary tract infection, site not specified 06/12/2007 03/22/2012 Renal colic 06/12/2007 03/22/2012 documented as of this encounter (statuses as of 04/07/2023) [facility] Narrative* Problem Noted Date Diagnosed Date Resolved Date ESRD (end stage renal disease) 04/21/2021 02/23/2023 Overview: History: T/Th/Sat Assessment/Plan: IHD today BMP pending Steal syndrome dialysis vascular access 05/17/2019 02/23/2023 CKD (chronic kidney disease) stage V requiring chronic dialysis 03/01/2018 08/29/2019 Overview: Dr. Pendleton, nephrology. CKD (chronic kidney disease) stage 4, GFR 15-29 ml/min 04/05/2017 03/02/2018 Overview: Dr. Nunez, nephrology. CKD (chronic kidney disease) stage 3, GFR 30-59 ml/min 07/17/2013 05/02/2017 Calculus of ureter 06/12/2007 2 Urinary tract infection, site not specified 06/12/2007 03/22/2012 Renal colic 06/12/2007 03/22/2012 documented as of this encounter (statuses as of 04/07/2023) [facility] Narrative* Problem Noted Date Diagnosed Date Resolved Date Steal syndrome dialysis vascular access 05/17/2019 02/23/2023 CKD (chronic kidney disease) stage V requiring chronic dialysis 03/01/2018 08/29/2019 Overview: Dr. Pendleton, nephrology. CKD (chronic kidney disease) stage 4, GFR 15-29 ml/min 04/05/2017 03/02/2018 Overview: Dr. Nunez, nephrology. CKD (chronic kidney disease) stage 3, GFR 30-59 ml/min 07/17/2013 05/02/2017 Calculus of ureter 06/12/2007 2 Urinary tract infection, site not specified 06/12/2007 03/22/2012 Renal colic 06/12/2007 03/22/2012 documented as of this encounter (statuses as of 04/12/2023) [facility] Narrative* Problem Noted Date Diagnosed Date Resolved Date Steal syndrome dialysis vascular access 05/17/2019 02/23/2023 CKD (chronic kidney disease) stage V requiring chronic dialysis 03/01/2018 08/29/2019 Overview: Dr. Pendleton, nephrology. CKD (chronic kidney disease) stage 4, GFR 15-29 ml/min 04/05/2017 03/02/2018 Overview: Dr. Nunez, nephrology. CKD (chronic kidney disease) stage 3, GFR 30-59 ml/min 07/17/2013 05/02/2017 Calculus of ureter 06/12/2007 2 Urinary tract infection, site not specified 06/12/2007 03/22/2012 Renal colic 06/12/2007 03/22/2012 documented as of this encounter (statuses as of 04/15/2023) [facility] Narrative* Problem Noted Date Diagnosed Date Resolved Date Steal syndrome dialysis vascular access 05/17/2019 02/23/2023 CKD (chronic kidney disease) stage V requiring chronic dialysis 03/01/2018 08/29/2019 Overview: Dr. Pendleton, nephrology. CKD (chronic kidney disease) stage 4, GFR 15-29 ml/min 04/05/2017 03/02/2018 Overview: Dr. Nunez, nephrology. CKD (chronic kidney disease) stage 3, GFR 30-59 ml/min 07/17/2013 05/02/2017 Calculus of ureter 06/12/2007 2 Urinary tract infection, site not specified 06/12/2007 03/22/2012 Renal colic 06/12/2007 03/22/2012 documented as of this encounter (statuses as of 05/29/2023) [facility] Narrative* Problem Noted Date Diagnosed Date Resolved Date Steal syndrome dialysis vascular access 05/17/2019 02/23/2023 CKD (chronic kidney disease) stage V requiring chronic dialysis 03/01/2018 08/29/2019 Overview: Dr. Pendleton, nephrology. CKD (chronic kidney disease) stage 4, GFR 15-29 ml/min 04/05/2017 03/02/2018 Overview: Dr. Nunez, nephrology. CKD (chronic kidney disease) stage 3, GFR 30-59 ml/min 07/17/2013 05/02/2017 Calculus of ureter 06/12/2007 2 Urinary tract infection, site not specified 06/12/2007 03/22/2012 Renal colic 06/12/2007 03/22/2012 documented as of this encounter (statuses as of 06/07/2023) [facility] Narrative* Problem Noted Date Diagnosed Date Resolved Date Steal syndrome dialysis vascular access 05/17/2019 02/23/2023 CKD (chronic kidney disease) stage V requiring chronic dialysis 03/01/2018 08/29/2019 Overview: Dr. Pendleton, nephrology. CKD (chronic kidney disease) stage 4, GFR 15-29 ml/min 04/05/2017 03/02/2018 Overview: Dr. Nunez, nephrology. CKD (chronic kidney disease) stage 3, GFR 30-59 ml/min 07/17/2013 05/02/2017 Calculus of ureter 06/12/2007 2 Urinary tract infection, site not specified 06/12/2007 03/22/2012 Renal colic 06/12/2007 03/22/2012 documented as of this encounter (statuses as of 06/07/2023) [facility] Narrative* Problem Noted Date Diagnosed Date Resolved Date Steal syndrome dialysis vascular access 05/17/2019 02/23/2023 CKD (chronic kidney disease) stage V requiring chronic dialysis 03/01/2018 08/29/2019 Overview: Dr. Pendleton nephrology. CKD (chronic kidney disease) stage 4, GFR 15-29 ml/min 04/05/2017 03/02/2018 Overview: Dr. Nunez nephrology. CKD (chronic kidney disease) stage 3, GFR 30-59 ml/min 07/17/2013 05/02/2017 Calculus of ureter 06/12/2007 2 Urinary tract infection, site not specified 06/12/2007 03/22/2012 Renal colic 06/12/2007 03/22/2012 documented as of this encounter (statuses as of 06/08/2023) [facility]arrative* Problem Noted Date Diagnosed Date Resolved Date Steal syndrome dialysis vascular access 05/17/2019 02/23/2023 CKD (chronic kidney disease) stage V requiring chronic dialysis 03/01/2018 08/29/2019 Overview: Dr. Pendleton nephrology. CKD (chronic kidney disease) stage 4, GFR 15-29 ml/min 04/05/2017 03/02/2018 Overview: Dr. Nunez, nephrology. CKD (chronic kidney disease) stage 3, GFR 30-59 ml/min 07/17/2013 05/02/2017 Calculus of ureter 06/12/2007 2 Urinary tract infection, site not specified 06/12/2007 03/22/2012 Renal colic 06/12/2007 03/22/2012 Depression 09/04/2006 06/12/2023 documented as of this encounter (statuses as of 06/13/2023) [facility]arrative* Problem Noted Date Diagnosed Date Resolved Date Steal syndrome dialysis vascular access 05/17/2019 02/23/2023 CKD (chronic kidney disease) stage V requiring chronic dialysis 03/01/2018 08/29/2019 Overview: Dr. Pendleton nephrology. CKD (chronic kidney disease) stage 4, GFR 15-29 ml/min 04/05/2017 03/02/2018 Overview: Dr. Nunez nephrology. CKD (chronic kidney disease) stage 3, GFR 30-59 ml/min 07/17/2013 05/02/2017 Calculus of ureter 06/12/2007 2 Urinary tract infection, site not specified 06/12/2007 03/22/2012 Renal colic 06/12/2007 03/22/2012 Depression 09/04/2006 06/12/2023 documented as of this encounter (statuses as of 06/13/2023) [facility]arr[facility]* Problem Noted Date Diagnosed Date Resolved Date Steal syndrome dialysis vascular access 05/17/2019 02/23/2023 CKD (chronic kidney disease) stage V requiring chronic dialysis 03/01/2018 08/29/2019 Overview: Dr. Pendleton nephrology. CKD (chronic kidney disease) stage 4, GFR 15-29 ml/min 04/05/2017 03/02/2018 Overview: Dr. Nunez nephrology. CKD (chronic kidney disease) stage 3, GFR 30-59 ml/min 07/17/2013 05/02/2017 Calculus of ureter 06/12/2007 2 Urinary tract infection, site not specified 06/12/2007 03/22/2012 Renal colic 06/12/2007 03/22/2012 Depression 09/04/2006 06/12/2023 documented as of this encounter (statuses as of 06/19/2023) [facility]arrative* Problem Noted Date Diagnosed Date Resolved Date Steal syndrome dialysis vascular access 05/17/2019 02/23/2023 CKD (chronic kidney disease) stage V requiring chronic dialysis 03/01/2018 08/29/2019 Overview: Dr. Pendleton nephrology. CKD (chronic kidney disease) stage 4, GFR 15-29 ml/min 04/05/2017 03/02/2018 Overview: Dr. Nunez nephrology. CKD (chronic kidney disease) stage 3, GFR 30-59 ml/min 07/17/2013 05/02/2017 Calculus of ureter 06/12/2007 2 Urinary tract infection, site not specified 06/12/2007 03/22/2012 Renal colic 06/12/2007 03/22/2012 Depression 09/04/2006 06/12/2023 documented as of this encounter (statuses as of 06/19/2023) [facility]* Problem Noted Date Diagnosed Date Resolved Date Steal syndrome dialysis vascular access 05/17/2019 02/23/2023 CKD (chronic kidney disease) stage V requiring chronic dialysis 03/01/2018 08/29/2019 Overview: Dr. Pendleton, nephrology. CKD (chronic kidney disease) stage 4, GFR 15-29 ml/min 04/05/2017 03/02/2018 Overview: Dr. Nunez nephrology. CKD (chronic kidney disease) stage 3, GFR 30-59 ml/min 07/17/2013 05/02/2017 Calculus of ureter 06/12/2007 2 Urinary tract infection, site not specified 06/12/2007 03/22/2012 Renal colic 06/12/2007 03/22/2012 Depression 09/04/2006 06/12/2023 documented as of this encounter (statuses as of 06/20/2023) [facility]* Problem Noted Date Diagnosed Date Resolved Date Steal syndrome dialysis vascular access 05/17/2019 02/23/2023 CKD (chronic kidney disease) stage V requiring chronic dialysis 03/01/2018 08/29/2019 Overview: Dr. Pendleton, nephrology. CKD (chronic kidney disease) stage 4, GFR 15-29 ml/min 04/05/2017 03/02/2018 Overview: Dr. Nunez, nephrology. CKD (chronic kidney disease) stage 3, GFR 30-59 ml/min 07/17/2013 05/02/2017 Calculus of ureter 06/12/2007 2 Urinary tract infection, site not specified 06/12/2007 03/22/2012 Renal colic 06/12/2007 03/22/2012 Depression 09/04/2006 06/12/2023 documented as of this encounter (statuses as of 06/22/2023) [facility]* Problem Noted Date Diagnosed Date Resolved Date Steal syndrome dialysis vascular access 05/17/2019 02/23/2023 CKD (chronic kidney disease) stage V requiring chronic dialysis 03/01/2018 08/29/2019 Overview: Dr. Pendleton, nephrology. CKD (chronic kidney disease) stage 4, GFR 15-29 ml/min 04/05/2017 03/02/2018 Overview: Dr. Nunez, nephrology. CKD (chronic kidney disease) stage 3, GFR 30-59 ml/min 07/17/2013 05/02/2017 Calculus of ureter 06/12/2007 2 Urinary tract infection, site not specified 06/12/2007 03/22/2012 Renal colic 06/12/2007 03/22/2012 Depression 09/04/2006 06/12/2023 documented as of this encounter (statuses as of 06/27/2023) [facility]* Problem Noted Date Diagnosed Date Resolved Date Steal syndrome dialysis vascular access 05/17/2019 02/23/2023 CKD (chronic kidney disease) stage V requiring chronic dialysis 03/01/2018 08/29/2019 Overview: Dr. Pendleton, nephrology. CKD (chronic kidney disease) stage 4, GFR 15-29 ml/min 04/05/2017 03/02/2018 Overview: Dr. Nunez, nephrology. CKD (chronic kidney disease) stage 3, GFR 30-59 ml/min 07/17/2013 05/02/2017 Calculus of ureter 06/12/2007 2 Urinary tract infection, site not specified 06/12/2007 03/22/2012 Renal colic 06/12/2007 03/22/2012 Depression 09/04/2006 06/12/2023 documented as of this encounter (statuses as of 06/28/2023) [facility]* Problem Noted Date Resolved Date CKD (chronic kidney disease) stage V requiring chronic dialysis 03/01/2018 08/29/2019 Overview: Dr. Pendleton, nephrology. CKD (chronic kidney disease) stage 4, GFR 15-29 ml/min 04/05/2017 03/02/2018 Overview: Dr. Nunez, nephrology. CKD (chronic kidney disease) stage 3, GFR 30-59 ml/min 07/17/2013 05/02/2017 Calculus of ureter 06/12/2007 03/22/2012 Urinary tract infection, site not specified 05/200703/22/2012 Renal colic 06/12/2007 03/22/2012 documented as of this encounter (statuses as of 12/07/2021) [facility]* Problem Noted Date Resolved Date CKD (chronic kidney disease) stage V requiring chronic dialysis 03/01/2018 08/29/2019 Overview: Dr. Pendleton, nephrology. CKD (chronic kidney disease) stage 4, GFR 15-29 ml/min 04/05/2017 03/02/2018 Overview: Dr. Nunez, nephrology. CKD (chronic kidney disease) stage 3, GFR 30-59 ml/min 07/17/2013 05/02/2017 Calculus of ureter 06/12/2007 03/22/2012 Urinary tract infection, site not specified 05/200703/22/2012 Renal colic 06/12/2007 03/22/2012 documented as of this encounter (statuses as of 12/10/2021) [facility]* Problem Noted Date Resolved Date CKD (chronic kidney disease) stage V requiring chronic dialysis 03/01/2018 08/29/2019 Overview: Dr. Pendleton, nephrology. CKD (chronic kidney disease) stage 4, GFR 15-29 ml/min 04/05/2017 03/02/2018 Overview: Dr. Nunez, nephrology. CKD (chronic kidney disease) stage 3, GFR 30-59 ml/min 07/17/2013 05/02/2017 Calculus of ureter 06/12/2007 03/22/2012 Urinary tract infection, site not specified 05/200703/22/2012 Renal colic 06/12/2007 03/22/2012 documented as of this encounter (statuses as of 12/14/2021) [facility]* Problem Noted Date Resolved Date CKD (chronic kidney disease) stage V requiring chronic dialysis 03/01/2018 08/29/2019 Overview: Dr. Pendleton nephrology. CKD (chronic kidney disease) stage 4, GFR 15-29 ml/min 04/05/2017 03/02/2018 Overview: Dr. Nunez nephrology. CKD (chronic kidney disease) stage 3, GFR 30-59 ml/min 07/17/2013 05/02/2017 Calculus of ureter 06/12/2007 03/22/2012 Urinary tract infection, site not specified 05/200703/22/2012 Renal colic 06/12/2007 03/22/2012 documented as of this encounter (statuses as of 12/24/2021) [facility]* Problem Noted Date Resolved Date CKD (chronic kidney disease) stage V requiring chronic dialysis 03/01/2018 08/29/2019 Overview: Dr. Pendleton, nephrology. CKD (chronic kidney disease) stage 4, GFR 15-29 ml/min 04/05/2017 03/02/2018 Overview: Dr. Nunez, nephrology. CKD (chronic kidney disease) stage 3, GFR 30-59 ml/min 07/17/2013 05/02/2017 Calculus of ureter 06/12/2007 03/22/2012 Urinary tract infection, site not specified 05/200703/22/2012 Renal colic 06/12/2007 03/22/2012 documented as of this encounter (statuses as of 12/28/2021) [facility]* Problem Noted Date Resolved Date CKD (chronic kidney disease) stage V requiring chronic dialysis 03/01/2018 08/29/2019 Overview: Dr. Pendleton, nephrology. CKD (chronic kidney disease) stage 4, GFR 15-29 ml/min 04/05/2017 03/02/2018 Overview: Dr. Nunez, nephrology. CKD (chronic kidney disease) stage 3, GFR 30-59 ml/min 07/17/2013 05/02/2017 Calculus of ureter 06/12/2007 03/22/2012 Urinary tract infection, site not specified 05/200703/22/2012 Renal colic 06/12/2007 03/22/2012 documented as of this encounter (statuses as of 12/28/2021) [facility]* Problem Noted Date Resolved Date CKD (chronic kidney disease) stage V requiring chronic dialysis 03/01/2018 08/29/2019 Overview: Dr. Pendleton, nephrology. CKD (chronic kidney disease) stage 4, GFR 15-29 ml/min 04/05/2017 03/02/2018 Overview: Dr. Nunez, nephrology. CKD (chronic kidney disease) stage 3, GFR 30-59 ml/min 07/17/2013 05/02/2017 Calculus of ureter 06/12/2007 03/22/2012 Urinary tract infection, site not specified 05/200703/22/2012 Renal colic 06/12/2007 03/22/2012 documented as of this encounter (statuses as of 01/07/2022) [facility]* Problem Noted Date Resolved Date CKD (chronic kidney disease) stage V requiring chronic dialysis 03/01/2018 08/29/2019 Overview: Dr. Pendleton, nephrology. CKD (chronic kidney disease) stage 4, GFR 15-29 ml/min 04/05/2017 03/02/2018 Overview: Dr. Nunez, nephrology. CKD (chronic kidney disease) stage 3, GFR 30-59 ml/min 07/17/2013 05/02/2017 Calculus of ureter 06/12/2007 03/22/2012 Urinary tract infection, site not specified 05/200703/22/2012 Renal colic 06/12/2007 03/22/2012 documented as of this encounter (statuses as of 01/10/2022) [facility]* Problem Noted Date Resolved Date CKD (chronic kidney disease) stage V requiring chronic dialysis 03/01/2018 08/29/2019 Overview: Dr. Pendleton nephrology. CKD (chronic kidney disease) stage 4, GFR 15-29 ml/min 04/05/2017 03/02/2018 Overview: Dr. Nunez nephrology. CKD (chronic kidney disease) stage 3, GFR 30-59 ml/min 07/17/2013 05/02/2017 Calculus of ureter 06/12/2007 03/22/2012 Urinary tract infection, site not specified 05/200703/22/2012 Renal colic 06/12/2007 03/22/2012 documented as of this encounter (statuses as of 01/12/2022) [facility]* Problem Noted Date Resolved Date CKD (chronic kidney disease) stage V requiring chronic dialysis 03/01/2018 08/29/2019 Overview: Dr. Pendleton, nephrology. CKD (chronic kidney disease) stage 4, GFR 15-29 ml/min 04/05/2017 03/02/2018 Overview: Dr. Nunez, nephrology. CKD (chronic kidney disease) stage 3, GFR 30-59 ml/min 07/17/2013 05/02/2017 Calculus of ureter 06/12/2007 03/22/2012 Urinary tract infection, site not specified 05/200703/22/2012 Renal colic 06/12/2007 03/22/2012 documented as of this encounter (statuses as of 01/14/2022) [facility]* Problem Noted Date Resolved Date CKD (chronic kidney disease) stage V requiring chronic dialysis 03/01/2018 08/29/2019 Overview: Dr. Pendleton, nephrology. CKD (chronic kidney disease) stage 4, GFR 15-29 ml/min 04/05/2017 03/02/2018 Overview: Dr. Nunez, nephrology. CKD (chronic kidney disease) stage 3, GFR 30-59 ml/min 07/17/2013 05/02/2017 Calculus of ureter 06/12/2007 03/22/2012 Urinary tract infection, site not specified 05/200703/22/2012 Renal colic 06/12/2007 03/22/2012 documented as of this encounter (statuses as of 01/28/2022) [facility]* Problem Noted Date Resolved Date CKD (chronic kidney disease) stage V requiring chronic dialysis 03/01/2018 08/29/2019 Overview: Dr. Pendleton, nephrology. CKD (chronic kidney disease) stage 4, GFR 15-29 ml/min 04/05/2017 03/02/2018 Overview: Dr. Nunez, nephrology. CKD (chronic kidney disease) stage 3, GFR 30-59 ml/min 07/17/2013 05/02/2017 Calculus of ureter 06/12/2007 03/22/2012 Urinary tract infection, site not specified 05/200703/22/2012 Renal colic 06/12/2007 03/22/2012 documented as of this encounter (statuses as of 02/14/2022) [facility]* Problem Noted Date Resolved Date CKD (chronic kidney disease) stage V requiring chronic dialysis 03/01/2018 08/29/2019 Overview: Dr. Pendleton, nephrology. CKD (chronic kidney disease) stage 4, GFR 15-29 ml/min 04/05/2017 03/02/2018 Overview: Dr. Nunez, nephrology. CKD (chronic kidney disease) stage 3, GFR 30-59 ml/min 07/17/2013 05/02/2017 Calculus of ureter 06/12/2007 03/22/2012 Urinary tract infection, site not specified 05/200703/22/2012 Renal colic 06/12/2007 03/22/2012 documented as of this encounter (statuses as of 02/16/2022) [facility]* Problem Noted Date Resolved Date CKD (chronic kidney disease) stage V requiring chronic dialysis 03/01/2018 08/29/2019 Overview: Dr. Pendleton nephrology. CKD (chronic kidney disease) stage 4, GFR 15-29 ml/min 04/05/2017 03/02/2018 Overview: Dr. Nunez nephrology. CKD (chronic kidney disease) stage 3, GFR 30-59 ml/min 07/17/2013 05/02/2017 Calculus of ureter 06/12/2007 03/22/2012 Urinary tract infection, site not specified 05/200703/22/2012 Renal colic 06/12/2007 03/22/2012 documented as of this encounter (statuses as of 02/17/2022) [facility]* Problem Noted Date Resolved Date CKD (chronic kidney disease) stage V requiring chronic dialysis 03/01/2018 08/29/2019 Overview: Dr. Pendleton, nephrology. CKD (chronic kidney disease) stage 4, GFR 15-29 ml/min 04/05/2017 03/02/2018 Overview: Dr. Nunez, nephrology. CKD (chronic kidney disease) stage 3, GFR 30-59 ml/min 07/17/2013 05/02/2017 Calculus of ureter 06/12/2007 03/22/2012 Urinary tract infection, site not specified 05/200703/22/2012 Renal colic 06/12/2007 03/22/2012 documented as of this encounter (statuses as of 03/10/2022) [facility] History of Past illness Narrative* Problem Noted Date Resolved Date CKD (chronic kidney disease) stage V requiring chronic dialysis 03/01/2018 08/29/2019 Overview: Dr. Pendleton, nephrology. CKD (chronic kidney disease) stage 4, GFR 15-29 ml/min 04/05/2017 03/02/2018 Overview: Dr. Nunez, nephrology. CKD (chronic kidney disease) stage 3, GFR 30-59 ml/min 07/17/2013 05/02/2017 Calculus of ureter 06/12/2007 03/22/2012 Urinary tract infection, site not specified 05/200703/22/2012 Renal colic 06/12/2007 03/22/2012 documented as of this encounter (statuses as of 03/18/2022) [facility] History of Past illness Narrative* Problem Noted Date Resolved Date CKD (chronic kidney disease) stage V requiring chronic dialysis 03/01/2018 08/29/2019 Overview: Dr. Pendleton, nephrology. CKD (chronic kidney disease) stage 4, GFR 15-29 ml/min 04/05/2017 03/02/2018 Overview: Dr. Nunez, nephrology. CKD (chronic kidney disease) stage 3, GFR 30-59 ml/min 07/17/2013 05/02/2017 Calculus of ureter 06/12/2007 03/22/2012 Urinary tract infection, site not specified 05/200703/22/2012 Renal colic 06/12/2007 03/22/2012 documented as of this encounter (statuses as of 04/04/2022) [facility] History of Past illness Narrative* Problem Noted Date Resolved Date CKD (chronic kidney disease) stage V requiring chronic dialysis 03/01/2018 08/29/2019 Overview: Dr. Pendleton, nephrology. CKD (chronic kidney disease) stage 4, GFR 15-29 ml/min 04/05/2017 03/02/2018 Overview: Dr. Nunez, nephrology. CKD (chronic kidney disease) stage 3, GFR 30-59 ml/min 07/17/2013 05/02/2017 Calculus of ureter 06/12/2007 03/22/2012 Urinary tract infection, site not specified 05/200703/22/2012 Renal colic 06/12/2007 03/22/2012 documented as of this encounter (statuses as of 04/21/2022) [facility] History of Past illness Narrative* Problem Noted Date Resolved Date CKD (chronic kidney disease) stage V requiring chronic dialysis 03/01/2018 08/29/2019 Overview: Dr. Pendleton nephrology. CKD (chronic kidney disease) stage 4, GFR 15-29 ml/min 04/05/2017 03/02/2018 Overview: Dr. Nunez nephrology. CKD (chronic kidney disease) stage 3, GFR 30-59 ml/min 07/17/2013 05/02/2017 Calculus of ureter 06/12/2007 03/22/2012 Urinary tract infection, site not specified 05/200703/22/2012 Renal colic 06/12/2007 03/22/2012 documented as of this encounter (statuses as of 04/22/2022) [facility] History of Past illness Narrative* Problem Noted Date Resolved Date CKD (chronic kidney disease) stage V requiring chronic dialysis 03/01/2018 08/29/2019 Overview: Dr. Pendleton, nephrology. CKD (chronic kidney disease) stage 4, GFR 15-29 ml/min 04/05/2017 03/02/2018 Overview: Dr. Nunez, nephrology. CKD (chronic kidney disease) stage 3, GFR 30-59 ml/min 07/17/2013 05/02/2017 Calculus of ureter 06/12/2007 03/22/2012 Urinary tract infection, site not specified 05/200703/22/2012 Renal colic 06/12/2007 03/22/2012 documented as of this encounter (statuses as of 05/02/2022) [facility] History of Past illness Narrative* Problem Noted Date Resolved Date CKD (chronic kidney disease) stage V requiring chronic dialysis 03/01/2018 08/29/2019 Overview: Dr. Pendleton, nephrology. CKD (chronic kidney disease) stage 4, GFR 15-29 ml/min 04/05/2017 03/02/2018 Overview: Dr. Nunez, nephrology. CKD (chronic kidney disease) stage 3, GFR 30-59 ml/min 07/17/2013 05/02/2017 Calculus of ureter 06/12/2007 03/22/2012 Urinary tract infection, site not specified 05/200703/22/2012 Renal colic 06/12/2007 03/22/2012 documented as of this encounter (statuses as of 05/04/2022) [facility] History of Past illness Narrative* Problem Noted Date Resolved Date CKD (chronic kidney disease) stage V requiring chronic dialysis 03/01/2018 08/29/2019 Overview: Dr. Pendleton, nephrology. CKD (chronic kidney disease) stage 4, GFR 15-29 ml/min 04/05/2017 03/02/2018 Overview: Dr. Nunez, nephrology. CKD (chronic kidney disease) stage 3, GFR 30-59 ml/min 07/17/2013 05/02/2017 Calculus of ureter 06/12/2007 03/22/2012 Urinary tract infection, site not specified 05/200703/22/2012 Renal colic 06/12/2007 03/22/2012 documented as of this encounter (statuses as of 06/01/2022) [facility] History of Past illness Narrative* Problem Noted Date Resolved Date CKD (chronic kidney disease) stage V requiring chronic dialysis 03/01/2018 08/29/2019 Overview: Dr. Pendleton, nephrology. CKD (chronic kidney disease) stage 4, GFR 15-29 ml/min 04/05/2017 03/02/2018 Overview: Dr. Nunez, nephrology. CKD (chronic kidney disease) stage 3, GFR 30-59 ml/min 07/17/2013 05/02/2017 Calculus of ureter 06/12/2007 03/22/2012 Urinary tract infection, site not specified 05/200703/22/2012 Renal colic 06/12/2007 03/22/2012 documented as of this encounter (statuses as of 06/01/2022) [facility] History of Past illness Narrative* Problem Noted Date Resolved Date CKD (chronic kidney disease) stage V requiring chronic dialysis 03/01/2018 08/29/2019 Overview: Dr. Pendleton nephrology. CKD (chronic kidney disease) stage 4, GFR 15-29 ml/min 04/05/2017 03/02/2018 Overview: Dr. Nunez nephrology. CKD (chronic kidney disease) stage 3, GFR 30-59 ml/min 07/17/2013 05/02/2017 Calculus of ureter 06/12/2007 03/22/2012 Urinary tract infection, site not specified 05/200703/22/2012 Renal colic 06/12/2007 03/22/2012 documented as of this encounter (statuses as of 06/07/2022) [facility] History of Past illness Narrative* Problem Noted Date Resolved Date CKD (chronic kidney disease) stage V requiring chronic dialysis 03/01/2018 08/29/2019 Overview: Dr. Pendleton, nephrology. CKD (chronic kidney disease) stage 4, GFR 15-29 ml/min 04/05/2017 03/02/2018 Overview: Dr. Nunez, nephrology. CKD (chronic kidney disease) stage 3, GFR 30-59 ml/min 07/17/2013 05/02/2017 Calculus of ureter 06/12/2007 03/22/2012 Urinary tract infection, site not specified 05/200703/22/2012 Renal colic 06/12/2007 03/22/2012 documented as of this encounter (statuses as of 06/08/2022) [facility] History of Past illness Narrative* Problem Noted Date Resolved Date CKD (chronic kidney disease) stage V requiring chronic dialysis 03/01/2018 08/29/2019 Overview: Dr. Pendleton, nephrology. CKD (chronic kidney disease) stage 4, GFR 15-29 ml/min 04/05/2017 03/02/2018 Overview: Dr. Nunez, nephrology. CKD (chronic kidney disease) stage 3, GFR 30-59 ml/min 07/17/2013 05/02/2017 Calculus of ureter 06/12/2007 03/22/2012 Urinary tract infection, site not specified 05/200703/22/2012 Renal colic 06/12/2007 03/22/2012 documented as of this encounter (statuses as of 06/16/2022) [facility] History of Past illness Narrative* Problem Noted Date Resolved Date CKD (chronic kidney disease) stage V requiring chronic dialysis 03/01/2018 08/29/2019 Overview: Dr. Pendleton, nephrology. CKD (chronic kidney disease) stage 4, GFR 15-29 ml/min 04/05/2017 03/02/2018 Overview: Dr. Nunez, nephrology. CKD (chronic kidney disease) stage 3, GFR 30-59 ml/min 07/17/2013 05/02/2017 Calculus of ureter 06/12/2007 03/22/2012 Urinary tract infection, site not specified 05/200703/22/2012 Renal colic 06/12/2007 03/22/2012 documented as of this encounter (statuses as of 06/22/2022) [facility] History of Past illness Narrative* Problem Noted Date Resolved Date CKD (chronic kidney disease) stage V requiring chronic dialysis 03/01/2018 08/29/2019 Overview: Dr. Pendleton, nephrology. CKD (chronic kidney disease) stage 4, GFR 15-29 ml/min 04/05/2017 03/02/2018 Overview: Dr. Nunez, nephrology. CKD (chronic kidney disease) stage 3, GFR 30-59 ml/min 07/17/2013 05/02/2017 Calculus of ureter 06/12/2007 03/22/2012 Urinary tract infection, site not specified 05/200703/22/2012 Renal colic 06/12/2007 03/22/2012 documented as of this encounter (statuses as of 07/04/2022) [facility] of Past illness Narrative* Problem Noted Date Resolved Date CKD (chronic kidney disease) stage V requiring chronic dialysis 03/01/2018 08/29/2019 Overview: Dr. Pendleton nephrology. CKD (chronic kidney disease) stage 4, GFR 15-29 ml/min 04/05/2017 03/02/2018 Overview: Dr. Nunez nephrology. CKD (chronic kidney disease) stage 3, GFR 30-59 ml/min 07/17/2013 05/02/2017 Calculus of ureter 06/12/2007 03/22/2012 Urinary tract infection, site not specified 05/200703/22/2012 Renal colic 06/12/2007 03/22/2012 documented as of this encounter (statuses as of 07/05/2022) [facility] History of Past illness Narrative* Problem Noted Date Resolved Date CKD (chronic kidney disease) stage V requiring chronic dialysis 03/01/2018 08/29/2019 Overview: Dr. Pendleton, nephrology. CKD (chronic kidney disease) stage 4, GFR 15-29 ml/min 04/05/2017 03/02/2018 Overview: Dr. Nunez, nephrology. CKD (chronic kidney disease) stage 3, GFR 30-59 ml/min 07/17/2013 05/02/2017 Calculus of ureter 06/12/2007 03/22/2012 Urinary tract infection, site not specified 05/200703/22/2012 Renal colic 06/12/2007 03/22/2012 documented as of this encounter (statuses as of 07/07/2022) [facility] History of Past illness Narrative* Problem Noted Date Resolved Date CKD (chronic kidney disease) stage V requiring chronic dialysis 03/01/2018 08/29/2019 Overview: Dr. Pendleton, nephrology. CKD (chronic kidney disease) stage 4, GFR 15-29 ml/min 04/05/2017 03/02/2018 Overview: Dr. Nunez, nephrology. CKD (chronic kidney disease) stage 3, GFR 30-59 ml/min 07/17/2013 05/02/2017 Calculus of ureter 06/12/2007 03/22/2012 Urinary tract infection, site not specified 05/200703/22/2012 Renal colic 06/12/2007 03/22/2012 documented as of this encounter (statuses as of 07/11/2022) [facility] History of Past illness Narrative* Problem Noted Date Resolved Date CKD (chronic kidney disease) stage V requiring chronic dialysis 03/01/2018 08/29/2019 Overview: Dr. Pendleton, nephrology. CKD (chronic kidney disease) stage 4, GFR 15-29 ml/min 04/05/2017 03/02/2018 Overview: Dr. Nunez, nephrology. CKD (chronic kidney disease) stage 3, GFR 30-59 ml/min 07/17/2013 05/02/2017 Calculus of ureter 06/12/2007 03/22/2012 Urinary tract infection, site not specified 05/200703/22/2012 Renal colic 06/12/2007 03/22/2012 documented as of this encounter (statuses as of 08/04/2022) [facility] History of Past illness Narrative* Problem Noted Date Resolved Date CKD (chronic kidney disease) stage V requiring chronic dialysis 03/01/2018 08/29/2019 Overview: Dr. Pendleton, nephrology. CKD (chronic kidney disease) stage 4, GFR 15-29 ml/min 04/05/2017 03/02/2018 Overview: Dr. Nunez, nephrology. CKD (chronic kidney disease) stage 3, GFR 30-59 ml/min 07/17/2013 05/02/2017 Calculus of ureter 06/12/2007 03/22/2012 Urinary tract infection, site not specified 05/200703/22/2012 Renal colic 06/12/2007 03/22/2012 documented as of this encounter (statuses as of 08/23/2022) [facility] History of Past illness Narrative* Problem Noted Date Resolved Date CKD (chronic kidney disease) stage V requiring chronic dialysis 03/01/2018 08/29/2019 Overview: Dr. Pendleton nephrology. CKD (chronic kidney disease) stage 4, GFR 15-29 ml/min 04/05/2017 03/02/2018 Overview: Dr. Nunez nephrology. CKD (chronic kidney disease) stage 3, GFR 30-59 ml/min 07/17/2013 05/02/2017 Calculus of ureter 06/12/2007 03/22/2012 Urinary tract infection, site not specified 05/200703/22/2012 Renal colic 06/12/2007 03/22/2012 documented as of this encounter (statuses as of 09/09/2022) [facility] History of Past illness Narrative* Problem Noted Date Resolved Date CKD (chronic kidney disease) stage V requiring chronic dialysis 03/01/2018 08/29/2019 Overview: Dr. Pendleton, nephrology. CKD (chronic kidney disease) stage 4, GFR 15-29 ml/min 04/05/2017 03/02/2018 Overview: Dr. Nunez, nephrology. CKD (chronic kidney disease) stage 3, GFR 30-59 ml/min 07/17/2013 05/02/2017 Calculus of ureter 06/12/2007 03/22/2012 Urinary tract infection, site not specified 05/200703/22/2012 Renal colic 06/12/2007 03/22/2012 documented as of this encounter (statuses as of 09/09/2022) [facility] History of Past illness Narrative* Problem Noted Date Resolved Date CKD (chronic kidney disease) stage V requiring chronic dialysis 03/01/2018 08/29/2019 Overview: Dr. Pendleton, nephrology. CKD (chronic kidney disease) stage 4, GFR 15-29 ml/min 04/05/2017 03/02/2018 Overview: Dr. Nunez, nephrology. CKD (chronic kidney disease) stage 3, GFR 30-59 ml/min 07/17/2013 05/02/2017 Calculus of ureter 06/12/2007 03/22/2012 Urinary tract infection, site not specified 05/200703/22/2012 Renal colic 06/12/2007 03/22/2012 documented as of this encounter (statuses as of 09/10/2022) [facility] History of Past illness Narrative* Problem Noted Date Resolved Date CKD (chronic kidney disease) stage V requiring chronic dialysis 03/01/2018 08/29/2019 Overview: Dr. Pendleton, nephrology. CKD (chronic kidney disease) stage 4, GFR 15-29 ml/min 04/05/2017 03/02/2018 Overview: Dr. Nunez, nephrology. CKD (chronic kidney disease) stage 3, GFR 30-59 ml/min 07/17/2013 05/02/2017 Calculus of ureter 06/12/2007 03/22/2012 Urinary tract infection, site not specified 05/200703/22/2012 Renal colic 06/12/2007 03/22/2012 documented as of this encounter (statuses as of 09/12/2022) [facility] History of Past illness Narrative* Problem Noted Date Resolved Date CKD (chronic kidney disease) stage V requiring chronic dialysis 03/01/2018 08/29/2019 Overview: Dr. Pendleton, nephrology. CKD (chronic kidney disease) stage 4, GFR 15-29 ml/min 04/05/2017 03/02/2018 Overview: Dr. Nunez, nephrology. CKD (chronic kidney disease) stage 3, GFR 30-59 ml/min 07/17/2013 05/02/2017 Calculus of ureter 06/12/2007 03/22/2012 Urinary tract infection, site not specified 05/200703/22/2012 Renal colic 06/12/2007 03/22/2012 documented as of this encounter (statuses as of 09/13/2022) [facility] of Past illness Narrative* Problem Noted Date Resolved Date CKD (chronic kidney disease) stage V requiring chronic dialysis 03/01/2018 08/29/2019 Overview: Dr. Pendleton nephrology. CKD (chronic kidney disease) stage 4, GFR 15-29 ml/min 04/05/2017 03/02/2018 Overview: Dr. Nunez nephrology. CKD (chronic kidney disease) stage 3, GFR 30-59 ml/min 07/17/2013 05/02/2017 Calculus of ureter 06/12/2007 03/22/2012 Urinary tract infection, site not specified 05/200703/22/2012 Renal colic 06/12/2007 03/22/2012 documented as of this encounter (statuses as of 09/20/2022) [facility] of Past illness Narrative* Problem Noted Date Resolved Date CKD (chronic kidney disease) stage V requiring chronic dialysis 03/01/2018 08/29/2019 Overview: Dr. Pendleton, nephrology. CKD (chronic kidney disease) stage 4, GFR 15-29 ml/min 04/05/2017 03/02/2018 Overview: Dr. Nunez, nephrology. CKD (chronic kidney disease) stage 3, GFR 30-59 ml/min 07/17/2013 05/02/2017 Calculus of ureter 06/12/2007 03/22/2012 Urinary tract infection, site not specified 05/200703/22/2012 Renal colic 06/12/2007 03/22/2012 documented as of this encounter (statuses as of 09/29/2022) [facility] Past illness Narrative* Problem Noted Date Resolved Date CKD (chronic kidney disease) stage V requiring chronic dialysis 03/01/2018 08/29/2019 Overview: Dr. Pendleton, nephrology. CKD (chronic kidney disease) stage 4, GFR 15-29 ml/min 04/05/2017 03/02/2018 Overview: Dr. Nunez, nephrology. CKD (chronic kidney disease) stage 3, GFR 30-59 ml/min 07/17/2013 05/02/2017 Calculus of ureter 06/12/2007 03/22/2012 Urinary tract infection, site not specified 05/200703/22/2012 Renal colic 06/12/2007 03/22/2012 documented as of this encounter (statuses as of 10/13/2022) [facility] Past illness Narrative* Problem Noted Date Resolved Date CKD (chronic kidney disease) stage V requiring chronic dialysis 03/01/2018 08/29/2019 Overview: Dr. Pendleton, nephrology. CKD (chronic kidney disease) stage 4, GFR 15-29 ml/min 04/05/2017 03/02/2018 Overview: Dr. Nunez, nephrology. CKD (chronic kidney disease) stage 3, GFR 30-59 ml/min 07/17/2013 05/02/2017 Calculus of ureter 06/12/2007 03/22/2012 Urinary tract infection, site not specified 05/200703/22/2012 Renal colic 06/12/2007 03/22/2012 documented as of this encounter (statuses as of 10/25/2022) [facility] Past [facility] Narrative* Problem Noted Date Resolved Date CKD (chronic kidney disease) stage V requiring chronic dialysis 03/01/2018 08/29/2019 Overview: Dr. Pendleton, nephrology. CKD (chronic kidney disease) stage 4, GFR 15-29 ml/min 04/05/2017 03/02/2018 Overview: Dr. Nunez, nephrology. CKD (chronic kidney disease) stage 3, GFR 30-59 ml/min 07/17/2013 05/02/2017 Calculus of ureter 06/12/2007 03/22/2012 Urinary tract infection, site not specified 05/200703/22/2012 Renal colic 06/12/2007 03/22/2012 documented as of this encounter (statuses as of 11/14/2022) [facility] Past illness Narrative* Problem Noted Date Resolved Date CKD (chronic kidney disease) stage V requiring chronic dialysis 03/01/2018 08/29/2019 Overview: Dr. Pendleton nephrology. CKD (chronic kidney disease) stage 4, GFR 15-29 ml/min 04/05/2017 03/02/2018 Overview: Dr. Nunez nephrology. CKD (chronic kidney disease) stage 3, GFR 30-59 ml/min 07/17/2013 05/02/2017 Calculus of ureter 06/12/2007 03/22/2012 Urinary tract infection, site not specified 05/200703/22/2012 Renal colic 06/12/2007 03/22/2012 documented as of this encounter (statuses as of 11/15/2022) [facility] Past illness Narrative* Problem Noted Date Resolved Date CKD (chronic kidney disease) stage V requiring chronic dialysis 03/01/2018 08/29/2019 Overview: Dr. Pendleton, nephrology. CKD (chronic kidney disease) stage 4, GFR 15-29 ml/min 04/05/2017 03/02/2018 Overview: Dr. Nunez, nephrology. CKD (chronic kidney disease) stage 3, GFR 30-59 ml/min 07/17/2013 05/02/2017 Calculus of ureter 06/12/2007 03/22/2012 Urinary tract infection, site not specified 05/200703/22/2012 Renal colic 06/12/2007 03/22/2012 documented as of this encounter (statuses as of 11/16/2022) [facility] illness Narrative* Problem Noted Date Resolved Date CKD (chronic kidney disease) stage V requiring chronic dialysis 03/01/2018 08/29/2019 Overview: Dr. Pendleton, nephrology. CKD (chronic kidney disease) stage 4, GFR 15-29 ml/min 04/05/2017 03/02/2018 Overview: Dr. Nunez, nephrology. CKD (chronic kidney disease) stage 3, GFR 30-59 ml/min 07/17/2013 05/02/2017 Calculus of ureter 06/12/2007 03/22/2012 Urinary tract infection, site not specified 05/200703/22/2012 Renal colic 06/12/2007 03/22/2012 documented as of this encounter (statuses as of 12/08/2022) [facility] Past illness Narrative* Problem Noted Date Resolved Date CKD (chronic kidney disease) stage V requiring chronic dialysis 03/01/2018 08/29/2019 Overview: Dr. Pendleton, nephrology. CKD (chronic kidney disease) stage 4, GFR 15-29 ml/min 04/05/2017 03/02/2018 Overview: Dr. Nunez, nephrology. CKD (chronic kidney disease) stage 3, GFR 30-59 ml/min 07/17/2013 05/02/2017 Calculus of ureter 06/12/2007 03/22/2012 Urinary tract infection, site not specified 05/200703/22/2012 Renal colic 06/12/2007 03/22/2012 documented as of this encounter (statuses as of 12/13/2022) [facility] illness Narrative* Problem Noted Date Resolved Date CKD (chronic kidney disease) stage V requiring chronic dialysis 03/01/2018 08/29/2019 Overview: Dr. Pendleton, nephrology. CKD (chronic kidney disease) stage 4, GFR 15-29 ml/min 04/05/2017 03/02/2018 Overview: Dr. Nunez, nephrology. CKD (chronic kidney disease) stage 3, GFR 30-59 ml/min 07/17/2013 05/02/2017 Calculus of ureter 06/12/2007 03/22/2012 Urinary tract infection, site not specified 05/200703/22/2012 Renal colic 06/12/2007 03/22/2012 documented as of this encounter (statuses as of 12/20/2022) [facility] Past [facility] Narrative* Problem Noted Date Resolved Date CKD (chronic kidney disease) stage V requiring chronic dialysis 03/01/2018 08/29/2019 Overview: Dr. Pendleton nephrology. CKD (chronic kidney disease) stage 4, GFR 15-29 ml/min 04/05/2017 03/02/2018 Overview: Dr. Nunez nephrology. CKD (chronic kidney disease) stage 3, GFR 30-59 ml/min 07/17/2013 05/02/2017 Calculus of ureter 06/12/2007 03/22/2012 Urinary tract infection, site not specified 05/200703/22/2012 Renal colic 06/12/2007 03/22/2012 documented as of this encounter (statuses as of 12/26/2022) [facility] Narrative* Problem Noted Date Resolved Date CKD (chronic kidney disease) stage V requiring chronic dialysis 03/01/2018 08/29/2019 Overview: Dr. Pendleton, nephrology. CKD (chronic kidney disease) stage 4, GFR 15-29 ml/min 04/05/2017 03/02/2018 Overview: Dr. Nunez, nephrology. CKD (chronic kidney disease) stage 3, GFR 30-59 ml/min 07/17/2013 05/02/2017 Calculus of ureter 06/12/2007 03/22/2012 Urinary tract infection, site not specified 05/200703/22/2012 Renal colic 06/12/2007 03/22/2012 documented as of this encounter (statuses as of 01/02/2023) [facility] Past [facility] Narrative* Problem Noted Date Resolved Date CKD (chronic kidney disease) stage V requiring chronic dialysis 03/01/2018 08/29/2019 Overview: Dr. Pendleton, nephrology. CKD (chronic kidney disease) stage 4, GFR 15-29 ml/min 04/05/2017 03/02/2018 Overview: Dr. Nunez, nephrology. CKD (chronic kidney disease) stage 3, GFR 30-59 ml/min 07/17/2013 05/02/2017 Calculus of ureter 06/12/2007 03/22/2012 Urinary tract infection, site not specified 05/200703/22/2012 Renal colic 06/12/2007 03/22/2012 documented as of this encounter (statuses as of 02/02/2023) [facility] History of Present illness Narrative* Ms. Sandy Bhatti is a 58-year-old female with a history of ESRD secondary to type 2 diabetes currently on dialysis since 02/14/2018. She is getting dialyzed on Monday at [facility] with the doctor Kristie. * History in detail: Type II diabetic almost 30 years plus patient had retinopathy but no neuropathy.Started dialysis in 2018 never had any biopsy of the kidney. Her dry weight is 147 pounds blood pressure stones high. Her urine output gradually going down recently. 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 Otherwise currently having functional right upper extremity fistula for which she getsPTA every year. * -Denied any other issues with the dialysis. * Other history: History of stroke/TIA in 2006, hypothyroidism * -History of kidney stones unable to tell what type of stones but she long time back. * -She had a history of depression prior at the time when she was started on dialysis at that time she was on medications which were removed once she was started on dialysis and never put her back. Denied any suicidal thoughts or suicidal attempts before. * Surgical history: * -Patient underwent appendectomy in 1998. * -Cholecystectomy surgery was complicated by bowel perforation requiring exploratory laparotomy and colostomy. Eventually reversal of colostomy was done in 2006. Patient does have a issues with constipation since then. * Family history: Father because of the colon cancer at the age of 58 * -Brother was on dialysis currently transplanted 2 years back. Niece is also on hemodialysis. Diabetes and coronary artery disease runs in the family * Social history: Lives with her . Mentioned that her sister will help out in case if she getsa transplant. She had 1 kid no potential living donors. * -She used to smoke until 6 years back to 1 pack/week * -Denied alcohol drinking since 2018 * -Denied IV drug use or marijuana use. * -COVID vaccinated. [id number] [place] [address] Work Phone: chigb complaint Narrative - Reported* ChiefComplaintFreeTextNoteForm_: * Kidney transplant surgical evaluation for potential active candidacy on kidney transplant list [id number] Work Phone: Chibs complaint Narrative - Reported* ChiefComplaintFreeTextNoteForm_UH: * Kidney transplant surgical evaluation [id number] [place] [address] Work Phone: Discharge summary Author Dave Ash-Vinicius [facility] Note Date/Time January 28, 2025 9:31a [facility] Medical Records Department [address] [place] [address] Emergency Department Summary 01/28/25 MR#: [id number] Acct: [id number] Name: SANDY BHATTI Rep #:[id number] : 1965 60 From: Dave christianson DO PCP: Dr. Maldonado Raza MD Status:R EG ER Location: ED HPI History of Present Illness Chief Complaint: Shortness of Breath Narrative Narrative: Chief complaint and HPI: Cold-like symptoms. 60-year-old female with past medical history of DM2, ESRD on HD Monday/Monday/Monday, HTN, thyroid diseasepresents for evaluation of cold-like symptoms. Patient states for the past weekshe has had rhinorrhea, cough, intermittent shortness of breath. States today she had some nausea and vomiting. Denies any abdominal pain, chest pain, fever,diarrhea. Did receive dialysis yesterday. Review of systems: See HPI Medications: As listed on the chart Allergies: As listed on the chart PFSH: Per chart Vital signs: As listed on the chart. Reviewed. Physical exam: Gen: A&O x3, NAD Head: Normocephalic, atraumatic Eyes: No sclera icterus, conjunctiva clear ENT: Moist mucous membranes Neck: Trachea midline, No JVD CV: RRR, no murmurs, no peripheral edema Resp: Lungs CTA BL but diminished in the bases, no w/r/c GI: Abd soft, non-distended, non-tender, no r/r/g Musc: Full ROM, no deformity Skin: Warm, dry Neuro: Alert, oriented, grossly intact, sensation intact Psych: Cooperative, appropriate mood and affect [facility] Medical History S/p small bowel obstruction Incarcerated incisional hernia Wears hearing aid in both ears Hypothyroidism Dialysis patient Kidney disease Former smoker Congestive heart failure (CHF) TIA (transient ischemic attack) Problem with dialysis access Hemorrhoids Acid reflux Constipation Anxiety Depression Hypertension Heart disease Diabetes Thyroid disease Home Medications ?Medication ?Instructions ?Recorded ?Last Taken ?Type aspirin 81 mg tablet,delayed 81 mg PO DAILY heart heal th 08/14/18 01/27/25 History release (Adult Low Dose Aspirin) atorvastatin 40 mg tablet 40 mg PO QHS CHOLESTEROL 07/2201/27/25 History vitamin B complex-vitamin C-folic 1 tab PO DAILY SUPPL EMENT 01/11/21 01/27/25 History acid 0.8 mg tablet (Kenneth-Petey) levothyroxine 125 mcg tablet 125 mcg PO DAILY THYROID 05/31/23 01/27/25 History lisinopril 40 mg tablet 40 mg PO DAILY BLOOD PRESSUR E 05/31/23 01/27/25 History sucroferric oxyhydroxide 500 mg 500 mg PO TID PHOSPHAT E BINDER 05/31/23 01/27/25 History chewable tablet (Velphoro) amlodipine 10 mg tablet 10 mg PO DAILY 01/28/25 05/02/26 History clonidine HCl 0.2 mg tablet 0.2 mg PO BID 01/28/25 History insulin glargine 100 unit/mL (3 48 unit subcut QHS 01/27/25 History mL) subcutaneous pen (Lantus Solostar U-100 Insulin) insulin lispro 100 unit/mL 8 unit subcut .COMPLEX 01/0301/27/25 History subcutaneous pen metoprolol tartrate 25 mg tablet 25 mg PO Q12H 5 01/27/25 History sumatriptan succinate 50 mg tablet 50 mg PO BID PRN mi graine 01/28/25 Unknown History Allergy/AdvReac Type Severity Reaction Status Date / Time Penicillins Allergy Severe Anaphylaxis Verified 01/28/25 07:51 chlorhexidine Allergy Mild rash Verified 01/28/25 07:51 codeine Allergy Unknown Unknown Verified 01/28/25 07:51 latex Allergy Unknown Unknown Verified 01/28/25 07:51 Family History Brother Kidney disease Mother Cancer lung cancer Father Colon cancer Surgical History S/P laparotomy with lysis of adhesions Hx of arteriovenostomy for renal dialysis Hx of bilateral breast reduction surgery History of partial hysterectomy History of bowel resection Hx of appendectomy Hx of cholecystectomy Social History Smoking Status: Former smoker alcohol intake: never substance use type: does not use caffeine: Yes what type of physical activity do you participate in: none frequency: does not exercise EXAM Physical Exam Const Vital Signs: 01/28/25 07:51 01/28/25 07:58 01/28/25 08:15 Temperature 98.2 F Temperature Source Oral Pulse Rate 86 Respiratory Rate 18 Respiratory Effort Normal Respiratory Depth Normal Respiratory Pattern Normal Blood Pressure 166/4 H Blood Pressure Mean 58 Pulse Ox 95 88 Oxygen Delivery Method Room Air Room Air Room Air Oxygen Flow Rate (L/min) 01/28/25 08:18 01/28/25 08:19 Temperature Temperature Source Pulse Rate 81 Respiratory Rate 18 Respiratory Effort Respiratory Depth Respiratory Pattern Normal Blood Pressure Blood Pressure Mean Pulse Ox 95 Oxygen Delivery Method Nasal Cannula Oxygen Flow Rate (L/min) 2 MDM MDM MDM Narrative Medical decision making narrative: 60-year-old female with past medical history of DM2, ESRD on HD Monday/Monday/Monday, HTN, thyroid disease presents for evaluation of cold- like symptoms. Symptoms consist of rhinorrhea, cough, intermittent shortness ofbreath, nausea, vomiting. Patient received dialysis yesterday. On presentation, patient is no acute distress. Vitals are stable other than some mild hypertension. Differential diagnosis includes but not limited to viral illness, COVID-19 infection, influenza, pneumonia, electrolyte abnormality, fluid overload. Zofran ordered for nausea. Given patient is a dialysis patientwe will hold off on any fluids. Patient has moist mucous membranes and no clearsigns of dehydration. Her lungs are clear auscultation bilaterally but diminished in the bases. Given patient is endorsing symptomatic shortness of breath with cough will give DuoNeb for symptom relief. COVID, flu, RSV testing including basic labs and chest x-ray. CBC without leukocytosis. Patient has baseline anemia with a hemoglobin of 9.7. BMP shows baseline renal insufficiency with a creatinine of 4.48. Patient did receive dialysis yesterday. Hyperglycemia of 227. Patient is a diabetic. No anion gap. During breathing treatment patient became hypoxic but saturations quickly improved. However, patient later became hypoxic with oxygen saturation at 87/88 and therefore placed on 2 L nasal cannula with improvement. Chest x-ray was personally interpreted by me, ED physician. Chest x-ray with cardiomegaly and bilateral pleural effusions. Patient has increased vascular markings. Radiology in agreement. There is no obvious pneumonia on chest x-ray. Patient has no leukocytosis. Suspect her symptoms are likely secondary to viral illnessand pleural effusions/mild CHF exacerbation. COVID, flu, RSV negative. Patientdoes make urine however will hold off on Lasix given her ESRD. Impression: 1. Acute hypoxia requiring nasal cannula 2. Viral syndrome 3. Mild CHF exacerbation with pleural effusion 4. History of ESRD on dialysis Lab Data Labs: Laboratory Results - last 24 hr 01/28/25 08:10 WBC 7.7 RBC 3.21 L Hgb 9.7 L Hct 29.3 L MCV 91.3 MCH 30.2 MCHC 33.1 RDW Std Deviation 42.9 RDW Coeff of Alvina 13.0 Plt Count 205 MPV 9.6 Immature Gran % (Auto) 0.800 Neut % (Auto) 75.6 H Lymph % (Auto) 16.7 L [place] % (Auto) 5.4 Eos % (Auto) 0.5 Baso % (Auto) 1.0 Absolute Neuts (auto) 5.8 Absolute Lymphs (auto) 1.29 Nucleated RBC % 0 Sodium 141 Potassium 4.1 Chloride 99 Carbon Dioxide 29.0 Anion Gap 13 BUN 19 Creatinine 4.48 H Estim Creat Clear Calc 11.98 L Est GFR (MDRD) Non-Af 11 L BUN/Creatinine Ratio 4.3 L Glucose 227 H Calcium 9.9 Radiography Diagnostic Testing: Clinical Impression(s) from Imaging Studies Chest X-Ray 01/28/25 08:30 IMPRESSION: Cardiomegaly. Bilateral pleural effusions greater greater on the right side with bibasilar dependent atelectasis and CHF. Reading Location: [place] [address] Discharge Plan Triage Chief Complaint: Shortness of Breath ED Provider: Dave Coronado Dx/Rx/DC Orders Prescriptions: No Action aspirin [Adult Low Dose Aspirin] 81 mg tablet,delayed release (DR/EC) 81 mg PO DAILY atorvastatin 40 mg tablet 40 mg PO QHS Kenneth-Petey 0.8 mg Tablet 1 tab PO DAILY lisinopril 40 mg tablet 40 mg PO DAILY Velphoro 500 mg tablet,chewable 500 mg PO TID levothyroxine 125 mcg tablet 125 mcg PO DAILY sumatriptan succinate 50 mg tablet 50 mg PO BID PRN (Reason: migraine) clonidine HCl 0.2 mg tablet 0.2 mg PO BID amlodipine 10 mg tablet 10 mg PO DAILY insulin lispro 100 unit/mL insulin pen 8 unit SUBCUT .COMPLEX Rx Instructions: INJECT 8 UNITS SUBCUTANEOUSLY THREE TIMES DAILY BEFORE MEALS, Add 1 UNIT foreach 50 mg/dl above 150. metoprolol tartrate 25 mg tablet 25 mg PO Q12H insulin glargine [Lantus Solostar U-100 Insulin] 100 unit/mL (3 mL) insulin pen 48 unit subcut QHS Primary Care Provider: Maldonado Raza Referrals: Maldonado Raza MD [Primary Care Provider] - Print Language: Romanian What to do if you have Problems For any increased pain, shortness of breath, bleeding, nausea or vomiting, chestpain, or any unexpected problems, contact your Primary Care Provider. Call [facility] ([phone]) or report to the closest Emergency Room. Call 911 if necessary. 01/28/25 0931 <Electronically signed by Dave Coronado DO> Cosigner Signature (if applicable): CC: Dr. Maldonado Raza MD ~ Signed [facility] Work Phone: Evaluation note* Diagnosis Gross hematuria documented [facility]* Diagnosis Ventral hernia with obstruction, without gangrene- Primary Ventral hernia, unspecified, with obstruction [facility]* Diagnosis Acute cystitis with hematuria- Primary Acute cystitis Acute left flank pain Abdominal pain, unspecified site Gross hematuria Other symptoms and signs involving the genitourinary system documented in this encounter [facility]* Diagnosis Essential hypertension Unspecified essential hypertension Other hyperlipidemia documented [facility] this encounter [facility]* Diagnosis Encounter for screening mammogram for breast cancer documented in this encounter [facility]* Diagnosis Other hyperlipidemia Essential hypertension Unspecified essential hypertension documented [facility] this encounter [facility]* Diagnosis Screening for cervical cancer- Primary Screening for malignant neoplasm of the cervix Controlled type 2 diabetes mellitus without complication, with long-term current use of insulin (HCC) ESRD on dialysis (HCC) End stage renal disease [facility]* Diagnosis ESRD (end stage renal disease) (HCC)- Primary End stage renal disease ESRD (end stage renal disease) (HCC) End stage renal disease [facility]* Diagnosis Onset Date Resolution Status Acute bilateral mastoiditis acute [facility] Work Phone: Evaluation note* Diagnosis Encounter for gynecological examination (general) (routine) without abnormal findings- Primary Vaginal discharge Leukorrhea, not specified as infective [facility]* Diagnosis ESRD (end stage renal disease) (HCC)- Primary End stage renal disease ESRD (end stage renal disease) (HCC) End stage renal disease [facility]* Diagnosis Other hyperlipidemia Hypothyroidism, unspecified type ESRD (end stage renal disease) (HCC) End stage renal disease [facility]* Diagnosis Controlled type 2 diabetes mellitus without complication, with long-term current use of insulin (HCC)- Primary Urinary tract infection without hematuria, site unspecified Essential hypertension Unspecified essential hypertension Hypothyroidism, unspecified type Encounter for immunization Need for other specified prophylactic vaccination against single bacterial disease ESRD on dialysis (HCC) End stage renal disease Depression, unspecified depression type Arteriovenous fistula, acquired (HCC) Arteriovenous fistula, acquired documented [facility]* Diagnosis Encounter for screening for malignant neoplasm of colon- Primary Special screening for malignant neoplasms, colon ESRD (end stage renal disease) (HCC) End stage renal disease VT (ventricular tachycardia) Paroxysmal ventricular tachycardia ASCVD (arteriosclerotic cardiovascular disease) Unspecified cardiovascular disease Family history of colon cancer Family history of malignant neoplasm of gastrointestinal tract [facility]* Diagnosis Encounter for screening for malignant neoplasm of colon- Primary Special screening for malignant neoplasms, colon Special screening for malignant neoplasms, colon Pre-op evaluation Preoperative examination, unspecified documented in this encounter [facility]* Diagnosis Essential hypertension Unspecified essential hypertension Other hyperlipidemia Hypothyroidism, unspecified type documented [facility] this encounter [facility]* Diagnosis Tubular adenoma- Primary Benign neoplasm of unspecified site Family history of colon cancer Family history of malignant neoplasm of gastrointestinal tract Tortuous colon Volvulus documented [facility] this encounter [facility]* Diagnosis ESRD (end stage renal disease) on dialysis (HCC)- Primary End stage renal disease documented in this encounter [facility] noteNo assessment information availableWSelect [facility] [place] Work Phone: Evaluation note* Diagnosis ESRD (end stage renal disease) (HCC)- Primary End stage renal disease ESRD (end stage renal disease) (HCC) End stage renal disease documented [facility] encounter [facility]* Diagnosis ESRD (end stage renal disease) (HCC)- Primary End stage renal disease ESRD (end stage renal disease) (HCC) End stage renal disease [facility]* Diagnosis Preop testing- Primary Preoperative examination, unspecified ESRD (end stage renal disease) (HCC) End stage renal disease [facility]* Diagnosis Primary hypertension Unspecified essential hypertension [facility]* Diagnosis ESRD (end stage renal disease) (HCC)- Primary End stage renal disease ESRD (end stage renal disease) (HCC) End stage renal disease [facility]* Diagnosis Controlled type 2 diabetes mellitus without complication, with long-term current use of insulin (HCC)- Primary ESRD on dialysis (HCC) End stage renal disease Encounter for screening mammogram for breast cancer ESRD (end stage renal disease) (HCC) End stage renal disease [facility]* Diagnosis ESRD (end stage renal disease) (HCC)- Primary End stage renal disease ESRD (end stage renal disease) (HCC) End stage renal disease [facility]* Diagnosis Idiopathic corneal edema, bilateral- Primary Controlled type 2 diabetes mellitus without complication, with long-term current use of insulin (HCC) Pseudophakia Lens replaced by other means PCO (posterior capsular opacification), left After-cataract, unspecified Senile nuclear cataract, right ESRD (end stage renal disease) (HCC) End stage renal disease documented [facility]* Diagnosis Hyperkalemia- Primary Hyperpotassemia Hypothyroidism, unspecified type Abnormal EKG Nonspecific abnormal electrocardiogram (ECG) (EKG) Primary hypertension Unspecified essential hypertension Controlled type 2 diabetes mellitus without complication, with long-term current use of insulin (HCC) Need for COVID-19 vaccine ESRD (end stage renal disease) (HCC) End stage renal disease [facility]* Diagnosis Encounter for screening mammogram for breast cancer ESRD (end stage renal disease) (HCC) End stage renal disease [facility]* Diagnosis ESRD (end stage renal disease) (HCC)- Primary End stage renal disease ESRD (end stage renal disease) (HCC) End stage renal disease [facility]* Diagnosis Encounter for other preprocedural examination Cardiomyopathy in diseases classified elsewhere (CMS/HCC) documented in this encounter [facility] Work Phone: Evaluation note* Diagnosis Encounter for other preprocedural examination Cardiomyopathy in diseases classified elsewhere (CMS/HCC) documented in this encounter [facility] Work Phone: Evaluation note* Diagnosis Encounter for other preprocedural examination documented in this encounter [facility] Work Phone: Evaluation note* Diagnosis Preoperative examination- Primary Preoperative examination, unspecified Hypothyroidism, unspecified type Primary hypertension Unspecified essential hypertension Other hyperlipidemia ESRD (end stage renal disease) (HCC) End stage renal disease ASCVD (arteriosclerotic cardiovascular disease) Unspecified cardiovascular disease Controlled type 2 diabetes mellitus without complication, with long-term current use of insulin ([facility]) History of CHF (congestive heart failure) Personal history of other diseases of circulatory system Heart murmur, systolic Undiagnosed cardiac murmurs Idiopathic corneal edema of both eyes Idiopathic corneal edema Idiopathic corneal edema, bilateral documented [facility] encounter [facility]* Diagnosis Status post corneal transplant- Primary Cornea replaced by transplant 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 [facility]* Diagnosis Status post corneal transplant- Primary Cornea replaced by transplant Abrasion of left cornea, initial encounter 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 [facility]* Diagnosis Abnormal EKG- Primary Nonspecific abnormal electrocardiogram (ECG) (EKG) ASCVD (arteriosclerotic cardiovascular disease) Unspecified cardiovascular disease Primary hypertension Unspecified essential hypertension Mixed hyperlipidemia Congestive heart failure, unspecified HF chronicity, unspecified heart failure type ([facility]) Controlled type 2 diabetes mellitus without complication, with long-term current use of insulin ([facility]) Stage 5 chronic kidney disease on chronic dialysis ([facility]) History of echocardiogram Other specified personal history presenting hazards to health History of cardiovascular stress test Other specified personal history presenting hazards to health History of left heart catheterization ([facility]) History of carotid artery stenosis Personal history of other diseases of circulatory system Former smoker Personal history of tobacco use, presenting hazards to health documented [facility] encounter [facility]* Diagnosis Hypothyroidism, unspecified type Primary hypertension Unspecified essential hypertension [facility]* Diagnosis ESRD (end stage renal disease) (HCC)- Primary End stage renal disease ESRD (end stage renal disease) (HCC) End stage renal disease [facility]* Diagnosis Pre-op testing- Primary Preoperative examination, unspecified ESRD (end stage renal disease) (HCC) End stage renal disease [facility]* Diagnosis Status post corneal transplant- Primary Cornea replaced by transplant PCO (posterior capsular opacification), left After-cataract, unspecified [facility] Diagnosis Controlled type 2 diabetes mellitus without complication, with long-term current use of insulin (HCC)- Primary Primary hypertension Unspecified essential hypertension Other hyperlipidemia Hypothyroidism, unspecified type ASCVD (arteriosclerotic cardiovascular disease) Unspecified cardiovascular disease ESRD on dialysis (HCC) End stage renal disease Congestive heart failure, unspecified HF chronicity, unspecified heart failure type (HCC) VT (ventricular tachycardia) Paroxysmal ventricular tachycardia Secondary hyperparathyroidism of renal origin (HCC) Secondary hyperparathyroidism (of renal origin) Hypertrophic cardiomyopathy (HCC) Other hypertrophic cardiomyopathy [facility]* Diagnosis ESRD on dialysis (HCC)- Primary End stage renal disease [facility]* Diagnosis Encounter for preoperative anesthesiology assessment for vascular surgery- Primary Swelling of right upper extremity [facility]* Diagnosis ESRD on dialysis (HCC)- Primary End stage renal disease Swelling of right upper extremity [facility]* Diagnosis Essential hypertension Unspecified essential hypertension documented [facility]* Diagnosis Congestive heart failure, unspecified HF chronicity, unspecified heart failure type (HCC)- Primary ASCVD (arteriosclerotic cardiovascular disease) Unspecified cardiovascular disease Primary hypertension Unspecified essential hypertension Mixed hyperlipidemia History of echocardiogram Other specified personal history presenting hazards to health History of cardiovascular stress test Other specified personal history presenting hazards to health History of carotid artery stenosis Personal history of other diseases of circulatory system History of diabetes mellitus Personal history of other endocrine, metabolic, and immunity disorders Former smoker Personal history of tobacco use, presenting hazards to health [facility]* Diagnosis Medicare annual wellness visit, subsequent- Primary Routine general medical examination at a health care facility Encounter for immunization Need for other specified prophylactic vaccination against single bacterial disease Arteriovenous fistula, acquired (HCC) Arteriovenous fistula, acquired Screening for depression Encounter for screening examination for other mental health and behavioral disorders Controlled type 2 diabetes mellitus without complication, with long-term current use of insulin (HCC) Primary hypertension Unspecified essential hypertension Mixed hyperlipidemia Congestive heart failure, unspecified HF chronicity, unspecified heart failure type (HCC) ESRD on dialysis (HCC) End stage renal disease Secondary hyperparathyroidism of renal origin (HCC) Secondary hyperparathyroidism (of renal origin) [facility] Diagnosis Peripheral arterial disease (HCC)- Primary Peripheral vascular disease, unspecified ESRD on dialysis (HCC) End stage renal disease [facility] Diagnosis Pre-transplant evaluation for kidney transplant documented in this encounter [facility] Work Phone: Evaluation note* Diagnosis Encounter for screening mammogram for breast cancer documented in this encounter [facility] note* Diagnosis Preop cardiovascular exam- Primary Pre-operative cardiovascular examination LVH (left ventricular hypertrophy) due to hypertensive disease, without heart failure Kidney transplant candidate Coronary arteriosclerosis Coronary atherosclerosis of unspecified type of vessel, [place] or graft documented in this encounter [facility] Work Phone: Evaluation note* Diagnosis End stage renal disease (Multi)- Primary End stage renal disease Encounter for therapeutic drug level monitoring documented in this encounter [facility] Work Phone: Evaluation note* Diagnosis Pre-transplant evaluation for kidney transplant Transient ischemic attack, remote, resolved Transient ischemic attack (TIA), and cerebral infarction without residual deficits Other specified symptoms and signs involving the circulatory and respiratory systems documented in this encounter [facility] Work Phone: Evaluation note* Diagnosis Pre-transplant evaluation for kidney transplant Coronary artery disease involving [place] heart without angina pectoris, unspecified vessel or lesion type Pre-transplant evaluation for kidney transplant Coronary artery disease involving [place] heart without angina pectoris, unspecified vessel or lesion type documented in this encounter [facility] Work Phone: Evaluation note* Diagnosis Pre-transplant evaluation for kidney transplant Coronary artery disease involving [place] heart without angina pectoris, unspecified vessel or lesion type Pre-transplant evaluation for kidney transplant Coronary artery disease involving [place] heart without angina pectoris, unspecified vessel or lesion type documented in this encounter [facility] Work Phone: Evaluation note* Diagnosis Pre-transplant evaluation for kidney transplant documented in this encounter [facility] Work Phone: Evaluation note* Diagnosis ASCVD (arteriosclerotic cardiovascular disease) Unspecified cardiovascular disease Primary hypertension Unspecified essential hypertension [facility]* Diagnosis Primary hypertension Unspecified essential hypertension [facility]* Diagnosis LVH (left ventricular hypertrophy) due to hypertensive disease, without heart failure Kidney transplant candidate Coronary arteriosclerosis Coronary atherosclerosis of unspecified type of vessel, [place] or graft documented in this encounter [facility] Work Phone: Evaluation note* Diagnosis Other hyperlipidemia documented in this encounter [facility] note* Diagnosis Abnormal screening mammogram Abnormal mammogram, unspecified documented in this encounter [facility] note* Diagnosis Abnormal screening mammogram Abnormal mammogram, unspecified documented in this encounter [facility] note* Diagnosis Controlled type 2 diabetes mellitus without complication, with long-term current use of insulin ([facility])- Primary Primary hypertension Unspecified essential hypertension Hypothyroidism, unspecified type ESRD (end stage renal disease) ([facility]) End stage renal disease Congestive heart failure, unspecified HF chronicity, unspecified heart failure type ([facility]) VT (ventricular tachycardia) ([facility]) Paroxysmal ventricular tachycardia Need for vaccination Need for prophylactic vaccination and inoculation against unspecified single disease Migraine without aura, not intractable, without status migrainosus Cervical cancer screening Screening for malignant neoplasm of the cervix documented in this encounter [facility] note* Diagnosis Controlled type 2 diabetes mellitus without complication, with long-term current use of insulin ([facility])- Primary documented in this encounter [facility] note* Diagnosis ESRD on dialysis ([facility])- Primary End stage renal disease documented in this encounter [facility] note* Diagnosis ESRD (end stage renal disease) (HCC)- Primary End stage renal disease [facility]* Diagnosis ESRD on dialysis (HCC)- Primary End stage renal disease ESRD on dialysis ([facility]) End stage renal disease documented in this encounter [facility] note* Diagnosis Controlled type 2 diabetes mellitus without complication, with long-term current use of insulin ([facility])- Primary Status post corneal 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 ESRD on dialysis ([facility]) End stage renal disease documented in this encounter [facility] note* Diagnosis Congestive heart failure, unspecified HF chronicity, unspecified heart failure type (HCC)- Primary ESRD on dialysis ([facility]) End stage renal disease Anemia of chronic renal failure, stage 5 ([facility]) Hypoxia Hypoxemia documented in this encounter [facility] note* Diagnosis Stage 5 chronic kidney disease on chronic dialysis ([facility])- Primary Diastolic congestive heart failure, unspecified HF chronicity ([facility]) Hypertensive left ventricular hypertrophy with heart failure (HCC) Primary hypertension Unspecified essential hypertension Abnormal EKG Nonspecific abnormal electrocardiogram (ECG) (EKG) Hyperlipidemia, unspecified hyperlipidemia type Type 2 diabetes mellitus with other specified complication, with long-term current use of insulin (HCC) [facility] Diagnosis ASCVD (arteriosclerotic cardiovascular disease) Unspecified cardiovascular disease [facility] Diagnosis Pre-transplant evaluation for kidney transplant documented in this encounter [facility] Work Phone: Evaluation note* Diagnosis Physical deconditioning- Primary Debility, unspecified Encounter for immunization Need for other specified prophylactic vaccination against single bacterial disease Primary hypertension Unspecified essential hypertension Other hyperlipidemia Hypothyroidism, unspecified type Dyspnea on exertion Other dyspnea and respiratory abnormality Congestive heart failure, unspecified HF chronicity, unspecified heart failure type (HCC) Hypoxia Hypoxemia Need for vaccination Need for prophylactic vaccination and inoculation against unspecified single disease [facility] Kidney Transplant * Reason For Visit: Pre-Transplant. * Functional Status: * Karnofsky Performance Status Scale Definitions Rating (%) Criteria Unable to work; able to live at home and care for most personal needs; varying amount of assistance needed, 70 - Cares for self; unable to carry on normal activity or do active work. * CKD: stage 5. * TIEDI: diabetes 30 years ago onset and cerebrovascular disease. * Dialysis: Hemodialysis:Dialysis Center: [facility] and Dry weight: 66.6 kg kg/lbs * Urine Status: oliguric. * Disease Complications: hypothyroidism. * Symptoms Currently Experiencing: edema and oliguria. * Compliance/Tolerance/Control: good compliance with treatment. * I am seeing SANDY BHATTI at the referring provider's request for surgical suitability for renal transplant candidate listing at [facility]. * History of Present Illness Comments: SANDY BHATTI is a 57 year old female with end stage renal disease secondary to type 2 diabetes mellitus for 30 years. She was diagnosed with chronic kidney diseasein 2017 and began HD as outpatient in 2018. * She has a past medical history of type 2 diabetes mellitus, a transient ischemic attack, steal syndrome, renal stones, and hypothyroidism. She had a colostomy in 2006 which resulted in a perforation of the bowel during surgery. * Dialysis Status: * Dialysis Center: on HD at [facility] * Dry Weight: 66.6 kg * Dialysis days: Mondays, Wednesdays, Fridays * Access location: right upper arm fistula. left extremity with steal syndrome. * Complications on HD: no * Anticoagulation: Heparin * Transplant Purposes: * Previous organ or islet transplant: no * Blood transfusion history: no * Previous abdominal surgery: ventral hernia. cholecystectomy. total abdominal hysterectomy. history of colostomy with a bowel perforation. * Diabetes History/Onset: 30 years * Peripheral arterial disease: no * Exhausted dialysis access: no * Previous history of cancer: no * Diabetes Information: * Amount of insulin: 8 am / 54 Levomir pm * Significant hypoglycemic events: no * Neuropathy: no * Retinopathy: no * Legal blindness: no * Renal failure: no * Vascular disease: no * Amputation: no * Cardiac History: * She reports no history of cardiac events * Atrial fibrillation: no * She does not need to see a Service Engine Repairer. * She has a history of a transient ischemic attack. * Psych History: * Anxiety: yes, not medically managed. * Depression: yes, not medically managed. * Psychosocial: * She quit smoking, alcohol, and marijuana use. * Financial: * She is on disability. * She has active health insurance coverage. * She has access to [employer] to do virtual visits. * Frailty Screen: * She is not feeling fatigued. * She cannot walk a city block without feeling tired. * She can climb a flight of stairs. * She has not lost more than 5% body weight unintentionally. * She has more than 5 comorbidities. * She is frail. * Karnofsky score: 70% * Support Systems: * Her and her [id number] will be her primary support. * Environment: * She is in a safe environment without fall risks. * She is in a safe and stable living situation. * Beliefs: * She will accept blood products if needed. * She does not have any potential living donors. * She is not vaccinated against COVID-19. [id number] Work Phone: History of Present illness Narrative* Kidney Transplant * Reason For Visit: Pre-Transplant. * History of Present Illness Comments: Kidney transplant surgical evaluation * I am seeing SANDY BHATTI at the referring provider's request for surgical suitability for renal transplant candidate listing at [facility]. * History of Present Illness Comments: SANDY BHATTI is a 58 year old female with end stage renal disease secondary to type 2 diabetes mellitus for 30 years. She was diagnosed with chronic kidney diseasein 2017 and began HD as outpatient in 2018. She HD MWF via [facility]. * She has a past medical history of type 2 diabetes mellitus, CVA, steal syndrome, kidney stones, andhypothyroidism. * Surgery: * She had a lap appy c/b bowel perforation requiring colostomy. This was reversed in 2006 * Open cholecystectomy * [facility] AVF s/p ligation * [facility] * Hysterectomy * Ventral hernia repair * Breast reduction * . [facility] Work Phone: Hospital course Narrative No data available for this section [facility] Progress note Author [place] [facility] Note Date/Time January 30, 2025 12:10 pm [facility] Medical Records Department [address] [place] [address] Progress Note - Nephrology 01/30/25 1155 MR#: [id number] Acct: [id number] Name: SANDY BHATTI Rep #:[id number] : 1965 60 From: [place] MD PCP: Dr. Maldonado Raza MD Status:A DM IN Location: [place] [address] Subjective Subjective No new complaints Objective Data Objective Data Vital Signs: Vital Signs Temp Pulse Resp BP Pulse Ox O2 Del Method O2 Flow Rate 98.0 F 69 16 146/50 H 96 Nasal Cannula 2 01/30/25 09:57 01/30/25 09:57 01/30/25 09:57 01/30/25 09:57 01/30/25 09:57 01/30/25 09:57 01/30/25 09:57 Oxygen Flow Rate (L/min) 2 Oxygen Delivery Method Nasal Cannula Weight: 55.4 kg Body Mass Index (BMI) 20.8 Intake & Output: Intake and Output for Last 24 Hours 01/28/25 01/29/25 01/30/25 23:59 23:59 23:59 Intake Total 600 / 600 720 / 1070 600 / 600 Output Total 3460 / 3460 Balance 600 / 600 -2740 / -2390 600 / 600 Lab / Micro Data 01/30/25 05:52 01/30/25 05:52 Labs: Laboratory Results - last 24 hr 01/29/25 11:32: POC Glucose 116 H 01/29/25 16:26: POC Glucose 77 01/29/25 22:34: POC Glucose 156 H 01/30/25 05:52: WBC 5.2, RBC 2.72 L, Hgb 8.3 L, Hct 25.5 L, MCV 93.8, MCH 30.5, MCHC 32.5, RDW Std Deviation 46.0 H, RDW Coeff of Alvina 13.7, Plt Count 166, MPV 9.6, Immature Gran % (Auto) 0.400, Neut % (Auto) 66.4, Lymph % (Auto) 24.6, [place]% (Auto) 6.3, Eos % (Auto) 1.0, Baso % (Auto) 1.3 H, Absolute Neuts (auto) 3.5, Absolute Lymphs (auto) 1.29, Nucleated RBC % 0, Sodium 135, Potassium 4.9, Chloride 99, Carbon Dioxide 27.9, Anion Gap 9, BUN 27 H, Creatinine 4.78 H, Estim Creat Clear Calc 10.67 L, Est GFR (MDRD) Non-Af 10 L, BUN/Creatinine Ratio 5.6 L, Glucose 186 H, Calcium 9.1 01/30/25 06:34: POC Glucose 179 H 01/30/25 08:58: POC Glucose 180 H Micro: Microbiology 01/28/25 08:19 Mucosa - Nose SARS-CoV-2, Influenza & RSV (PCR) - Final Physical Exam Narrative Alert and oriented x 3, no apparent distress S1, S2, RRR Diminished breath sounds with faint rales. On O2 nasal cannula Abdomen soft, nontender No pitting edema AV fistula right upper arm positive thrill and bruit Assessment & Plan Assessment/Plan (1) ESRD (end stage renal disease) on dialysis: PLAN: ESRD. On hemodialysis Monday, Monday, Monday. Came with shortness of breath. Feels better today. She thinks volume removal helped. Dry weight likely need to be adjusted down. Possible discharge home today 01/30/25 2095 <Electronically signed by [place] MD> Cosigner Signature (if applicable): CC: ~ Signed [facility] Work Phone: Reason for referral (narrative)* Diagnostic Procedure Only (Routine) - Pending Review Specialty Diagnoses / Procedures Referred By Adele nogueira Referred To Contact [facility] Diagnoses Encounter for screening mammogram for breast cancer Procedures KUNAL SCREENING SCREENING MAMMOGRAPHY BI 2-VIEW BREAST INC CAD Maldonado Raza MD [address] [place] [address] [facility] [address] [place] [address] Referral ID Status Reason Start Date Expiration Date Visits Requested Visits Authorized [id number] Pending Review Auto-Generat ed Referral 02/09/2022 03/11/2023 1 1 [facility] for referral (narrative)* Outpatient Procedure (Routine) - Closed Specialty Diagnoses / Procedures Referred By Adele nogueira Referred To Contact Diagnoses Special screening for malignant neoplasms, colon Pre-op evaluation Procedures COLONOSCOPY SCREENING COLONOSCOPY FLX DX W/COLLJ SPEC WHEN PFRMD Lisa Heredia PA-C [address] [facility] [place] [address] [facility] [address] [place] [address] Referral ID Status Reason Start Date Expiration Date V isits Requested Visits Authorized [id number] Closed Auto-Generate d Referral 09/20/2022 09/20/2023 1 1 [facility] for referral (narrative)* Outpatient Procedure (Urgent) - Pending Review Specialty Diagnoses / Procedures Referred By Lesterac t Referred [facility] Diagnoses ESRD (end stage renal disease) (HCC) Procedures ECG COMPLETE ECG ROUTINE ECG W/LEAST 12 LDS W/I&R Medardo Rogel MD [address] [place] [address] [facility] [address] [place] [address] Referral ID Status Reason Start Date Expiration Date Visits Requested Visits Authorized [id number] Pending Review Auto-Generat ed Referral 04/10/2023 04/06/2024 1 1 [facility] for referral (narrative)* Diagnostic Procedure Only (Routine) - Pending Review Specialty Diagnoses / Procedures Referred By Contac t Referred To Contact [facility] Diagnoses Encounter for screening mammogram for breast cancer Procedures KUNAL SCREENING SCREENING MAMMOGRAPHY BI 2-VIEW BREAST INC CAD Ifeoma Schneider APRN.CNP [address] [place] [address] [facility] [address] [place] [id number] Referral ID Status Reason Start Date Expiration Date Visits Requested Visits Authorized [id number] Pending Review Auto-Generat ed Referral 06/12/2023 07/11/2024 1 1 [facility] for referral (narrative)* Outpatient Procedure (Urgent) - Pending Review Specialty Diagnoses / Procedures Referred By Contac t Referred [facility] Diagnoses ESRD (end stage renal disease) (HCC) Procedures ECG COMPLETE ECG ROUTINE ECG W/LEAST 12 LDS W/I&R Medardo Rogel MD [address] [address] [facility] [address] [place] [address] Referral ID Status Reason Start Date Expiration Date Visits Requested Visits Authorized [id number] Pending Review Auto-Generat ed Referral 06/18/2024 1 1 [facility] for referral (narrative)* Diagnostic Procedure Only (Routine) - Closed Specialty Diagnoses / Procedures Referred By Contac t Referred To Contact [facility] Diagnoses Encounter for screening mammogram for breast cancer Procedures KUNAL SCREENING SCREENING MAMMOGRAPHY BI 2-VIEW BREAST INC CAD Maldonado Raza MD [address] [place] [address] [facility] [address] [place] [address] Referral ID Status Reason Start Date Expiration Date V isits Requested Visits Authorized [id number] Closed Auto-Generate d Referral 02/09/2022 03/11/2023 1 1 [facility] for referral (narrative)* Outpatient Procedure (Urgent) - Pending Review Specialty Diagnoses / Procedures Referred By Contac t Referred To Contact [facility] Diagnoses ESRD (end stage renal disease) (HCC) Procedures ECG COMPLETE ECG ROUTINE ECG W/LEAST 12 LDS W/[place] [address] [place] [address] [place] [address] [place] [address] Referral ID Status Reason Start Date Expiration Date Visits Requested Visits Authorized [id number] Pending Review Auto-Generat ed Referral 3 07/16/2024 1 1 [facility] for referral (narrative)* Outpatient Procedure (Routine) - Authorized Specialty Diagnoses / Procedures Referred By Contac t Referred To Contact [facility] Diagnoses Heart murmur, systolic Procedures ECHO ECHO TTHRC R-T 2D W/WOM-MODE COMPL SPEC&COLR D Maldonado Raza MD [address] [place] [address] [facility] [address] [place] [address] Referral ID Status Reason Start Date Expiration Date Visits Requested Visits Authorized [id number] Authorized Auto-Generat ed Referral 10/26/2023 10/25/2024 1 1 [facility] for referral (narrative)* Outpatient Procedure (Routine) - Pending Review Specialty Diagnoses / Procedures Referred By Contac t Referred To Contact [facility] Diagnoses Abnormal EKG Procedures ECG COMPLETE ECG ROUTINE ECG W/LEAST 12 LDS W/I&R Dave Pickett DO [address] [place] [address] [facility] [address] [address] Referral ID Status Reason Start Date Expiration Date Visits Requested Visits Authorized [id number] Pending Review Auto-Generat ed Referral 12/07/2023 12/06/2024 1 1 [facility] for referral (narrative)* Outpatient Procedure (Urgent) - Pending Review Specialty Diagnoses / Procedures Referred By Contac t Referred To Contact [facility] Diagnoses Pre-op testing Procedures ECG COMPLETE ECG ROUTINE ECG W/LEAST 12 LDS W/I&[place] [address] [place] [address] [facility] [address] [address] Referral ID Status Reason Start Date Expiration Date Visits Requested Visits Authorized [id number] Pending Review Auto-Generat ed Referral 01/18/2024 01/16/2025 1 1 T [facility] for referral (narrative)* Outpatient Procedure (Routine) - Authorized Specialty Diagnoses / Procedures Referred By Contac t Referred To Contact [facility] Diagnoses ESRD on dialysis (HCC) Procedures US A/V FISTULA GRAFT UNL VAS LAB DUPLEX SCAN HEMODIALYSIS ACCESS Luna Thomas MD [address] [place] [address] [facility] [address] [address] Referral ID Status Reason Start Date Expiration Date Visits Requested Visits Authorized [id number] Authorized Auto-Generat ed Referral 05/01/2024 05/01/2025 1 1 T [facility] for referral (narrative)* Outpatient Procedure (Routine) - New Request Specialty Diagnoses / Procedures Referred By Adele t Referred To [facility] Diagnoses ASCVD (arteriosclerotic cardiovascular disease) Procedures ECG COMPLETE ECG ROUTINE ECG W/LEAST 12 LDS W/I&R Mandie Younger APRN.CNP [address] [place] [address] [facility] [address] [place] [address] Referral ID Status Reason Start Date Expiration Date Visits Requested Visits Authorized [id number] New Request Auto-Generat ed Referral 06/11/2024 06/11/2025 1 1 [facility] for visit Narrative* Outpatient Procedure (Routine) - Closed Specialty Diagnoses / Procedures Referred By Adele t Referred To Contact Diagnoses Special screening for malignant neoplasms, colon Pre-op evaluation Procedures COLONOSCOPY SCREENING COLONOSCOPY FLX DX W/COLLJ SPEC WHEN PFRMD Lisa Heredia PA-C [address] [facility] [place] [address] [facility] [address] [place] [address] Referral ID Status Reason Start Date Expiration Date V isits Requested Visits Authorized [id number] Closed Auto-Generate d Referral 09/20/2022 09/20/2023 1 1 [facility] for visit Narrative* Diagnostic Procedure Only (Routine) - Closed Specialty Diagnoses / Procedures Referred By Adele t Referred To Contact [facility] Diagnoses Encounter for screening mammogram for breast cancer Procedures KUNAL SCREENING SCREENING MAMMOGRAPHY BI 2-VIEW BREAST INC CAD Maldonado Raza MD [address] [place] [address] [facility] [address] [place] [address] Referral ID Status Reason Start Date Expiration Date V isits Requested Visits Authorized [id number] Closed Auto-Generate d Referral 02/09/2022 03/11/2023 1 1 [facility] for visit Narrative* Imaging (Routine) - Pending Review Specialty Diagnoses / Procedures Referred By Adele t Referred To Contact Radiology Diagnoses Pre-transplant evaluation for kidney transplant Procedures CT cardiac [place] [address] [facility] Department [place] [address] Phone: tel: fax: Referral ID Status Reason Start Date Expiration Date Visits Requested Visits Authorized [id number] Pending Review Perform Procedure 03/20/2024 03/20/2025 1 1 [facility] Work Phone: Repeud for visit Narrative* Diagnostic Procedure Only (Routine) - Closed Specialty Diagnoses / Procedures Referred By Contac t Referred To Contact [facility] Diagnoses Encounter for screening mammogram for breast cancer Procedures KUNAL SCREENING SCREENING MAMMOGRAPHY BI 2-VIEW BREAST INC CAD Ifeoma Del Cid, HAZARDOUS MATERIALS HANDLER.HIGH FREQUENCY MILL OPERATOR [address] [place] [address] Br Imaging [address] [place] [address] Referral ID Status Reason Start Date Expiration Date V isits Requested Visits Authorized [id number] Closed Auto-Generate d Referral 06/12/2023 07/11/2024 1 1 [facility] for visit Narrative* Cardiovascular (Routine) - Authorized Specialty Diagnoses / Procedures Referred By Contac t Referred To Contact Diagnoses Preop cardiovascular exam Procedures ECG 12 lead (Clinic Performed) [place] [address] [place] [address] Phone: tel: fax: Referral ID Status Reason Start Date Expiration Date V isits Requested Visits Authorized [id number] Authorized 07/23/2024 07/23/2025 1 1 [facility] Work Phone: [facility] for visit Narrative* Imaging (Routine) - Authorized Specialty Diagnoses / Procedures Referred By Contac t Referred To Contact Cardiology Diagnoses Pre-transplant evaluation for kidney transplant Transient ischemic attack, remote, resolved Procedures Vascular [place] [address] [facility] Department of Surgery-Transplant [place] [address] Phone: tel: fax: Referral ID Status Reason Start Date Expiration Date Visits Requested Visits Authorized [id number] Authorized Perform Procedure 03/18/2024 03/18/2025 1 1 [facility] Work Phone: [facility] for visit Narrative* Imaging (Routine) - Authorized Specialty Diagnoses / Procedures Referred By Adele t Referred To Contact Radiology Diagnoses LVH (left ventricular hypertrophy) due to hypertensive disease, without heart failure Kidney transplant candidate Coronary arteriosclerosis Procedures MR cardiac morphology and function w and [place] [address] [place] [address] Phone: tel: fax: Referral ID Status Reason Start Date Expiration Date Visits Requested Visits Authorized [id number] Authorized Perform Procedure 07/23/2025 1 1 [facility] Work Phone: reason for visit Narrative* Diagnostic Procedure Only (Routine) - Closed Specialty Diagnoses / Procedures Referred By Adele nogueira Referred To Contact BR IMAGING Diagnoses Abnormal screening mammogram Procedures US BREAST LTD RIGHT US BREAST UNI REAL TIME WITH IMAGE LIMITED Ifeoma Del Cid, HAZARDOUS MATERIALS HANDLER.HIGH FREQUENCY MILL OPERATOR [address] [place] [address] Phone: tel: fax: BR IMAGING [address] [place] [address] Referral ID Status Reason Start Date Expiration Date V isits Requested Visits Authorized [id number] Closed Auto-Generate d Referral 07/16/2024 08/15/2025 1 1 [facility] for visit Narrative* Diagnostic Procedure Only (Routine) - Closed Specialty Diagnoses / Procedures Referred By Adele nogueira Referred To Contact BR IMAGING Diagnoses Abnormal screening mammogram Procedures KUNAL DIAGNOSTIC BILATERAL DIAGNOSTIC MAMMOGRAPHY COMPUTER-AIDED DETCJ BI Ifeoma Del Cid, HAZARDOUS MATERIALS HANDLER.HIGH FREQUENCY MILL OPERATOR [address] [place] [address] Phone: tel: fax: BR IMAGING [address] [place] [address] Referral ID Status Reason Start Date Expiration Date V isits Requested Visits Authorized [id number] Closed Auto-Generate d Referral 07/16/2024 08/15/2025 1 1 [facility] for visit Narrative* PFT (Routine) - Pending Review Specialty Diagnoses / Procedures Referred By Contac t Referred To Contact Diagnoses Pre-transplant evaluation for kidney transplant Procedures Pulmonary Stress Test (6 Min. Walk) [place] [address] [address] Department [place] [address] Phone: tel: fax: Referral ID Status Reason Start Date Expiration Date V isits Requested Visits Authorized [id number] Pending Review 03/31/2025 03/31/2026 1 1 [facility] Work Phone: Summary Purpose Family History No Family History Records FoundUnknown Family Member Name Dates Details No pertinent family history: Mother, Father(V49.89, Z78.9) Status:Active Unknown Family Member Name Dates Details No pertinent family history: Mother, Father(V49.89, Z78.9) Status:Active Unknown Family Member Name Dates Details No pertinent family history: Mother, Father(V49.89, Z78.9) Status:Active Relationship Condition Age at Onset Recorded Date/T dominick brother Kidney disorder Unknown mother Malignant neoplasm Unknown father Malignant neoplasm of colon Unknown Unknown Family Member Name Dates Details No pertinent family history: Mother, Father(V49.89, Z78.9) Status:Active Unknown Family Member Name Dates Details No pertinent family history: Mother, Father(V49.89, Z78.9) Status:Active Unknown Family Member Name Dates Details No pertinent family history: Mother, Father(V49.89, Z78.9) Status:Active Advance Directives No Advanced Directives Records FoundDocuments on File Type Date Recorded Patient Direct Of Real Estate Expl anation Advance Directive(s) 04/21/2021 5:23 PM Advance Directive(s) 03/30/2021 10:21 AM Advance Directive(s) 03/10/2021 3:14 PM Advance Directive(s) 01/14/2021 12:09 PM Advance Directive(s) 03/31/2020 11:13 AM Advance Directive(s) 01/17/2020 4:20 PM Advance Directive(s) 11/12/2019 2:30 PM Advance Directive(s) 10/31/2019 8:38 AM Advance Directive(s) 09/24/2019 12:35 PM Advance Directive(s) 09/16/2019 2:06 PM Advance Directive(s) 05/14/2019 12:23 PM Advance Directive(s) 05/02/2019 1:12 PM Documents on File Type Date Recorded Patient Direct Of Real Estate Expl anation Advance Directive(s) 04/21/2021 5:23 PM Advance Directive(s) 03/30/2021 10:21 AM Advance Directive(s) 03/10/2021 3:14 PM Advance Directive(s) 01/14/2021 12:09 PM Advance Directive(s) 03/31/2020 11:13 AM Advance Directive(s) 01/17/2020 4:20 PM Advance Directive(s) 11/12/2019 2:30 PM Advance Directive(s) 10/31/2019 8:38 AM Advance Directive(s) 09/24/2019 12:35 PM Advance Directive(s) 09/16/2019 2:06 PM Advance Directive(s) 05/14/2019 12:23 PM Advance Directive(s) 05/02/2019 1:12 PM Advance Directive Response Recorded Date/ Time Advance Directives No April 19, 2019 2:12pm Living Will No June 21 2:58pm Power of Rug Cleaner Hand No June 21, 2022 2:58pm Advance Directive Response Recorded Date/ Time Advance Directives No April 19, 2019 1:12pm Living Will No September 19 11:21am Power of Rug Cleaner Hand No September 19, 2022 11:21am Advance Directive Response Recorded Date/ Time Advance Directives No April 19, 2019 2:12pm Living Will No September 19 12:21pm Power of Rug Cleaner Hand No September 19, 2022 12:21pm Advance Directive Response Recorded Date/ Time Do you have a Healthcare Power of Rug Cleaner Hand? No January 28, 2025 7:58am Advance Directives No April 19, 2019 2:12pm Advance Directive Response Recorded Date/ Time Do you have a Healthcare Power of Rug Cleaner Hand? No January 28, 2025 10:17am Advance Directives No April 19, 2019 2:12pm Hospital Course Note [facility] Patient Name: SANDY BHATTI32Jonathan [employer] [place] Date of : [address] [id number] Unit Number: [id number] Number: [id number] Summary Patient Status: ADM INoAttending Doctor: Anderson Rubio MDService Date: 05/15/18 1352Discharge SummaryAdmit DateAdmission Date Time: 05/11/18 1301Anticipated Discharge Date 05/15/18inal Dx/Problem List1. Chest painOn Mon 2:03p May 14, 2018 ANDERSON RUBIO wroteAssessment and planChest pain with abnormal stress test. Coronary artery disease. Patient underwent cardiaccatheterization this morning.FINDINGS:1. Left main: No significant disease.2. LAD: There is mild diffuse disease in the distal LAD. There also isdisease in the diagonal branch which is mild and diffuse.3. Left circumflex: No significant disease in the circumflex until down to thedistal portion. After the takeoff of a large second OM, in the circumflex proper,there is a stenosis of roughly 60% at the ostium. This is a small artery.4. Ramus (more content not included)... Reason for Referral Specialty Diagnoses / Procedures [facility] Referred To Contact CT IMAGING Diagnoses Gross hematuria Procedures CT FLANK WO IVCON CT ABD & PELVIS W/O CONTRAST Maldonado Raza MD [address] [place] [address] Ct Imaging Referral ID Status Reason Start Date Expiration Date V isits Requested Visits Authorized [id number] Closed Auto-Generate d Referral 11/26/2021 12/26/2022 1 1 Specialty Diagnoses / Procedures Referred By [facility] Referred To Contact General Surgery Diagnoses Ventral hernia with obstruction, without gangrene Procedures CONSULT TO GENERAL SURGERY OFFICE/OUTPATIENT [facility] 60-74 MINUTES Maldonado Raza MD [address] [place] [address] Referral ID Status Reason Start Date Expiration Date Visits Requested Visits Authorized [id number] Authorized PCP Requested Referral 12/09/2021 12/09/2022 1 1 Specialty Diagnoses / Procedures Referred By [facility] Referred To Contact Ophthalmology Diagnoses Controlled type 2 diabetes mellitus without complication, with long-term current use of insulin (HCC) Procedures CONSULT TO OPHTHALMOLOGY OFFICE/OUTPATIENT [facility] 60-74 MINUTES Maldonado Raza MD [address] [place] [address] Referral ID Status Reason Start Date Expiration Date Visits Requested Visits Authorized [id number] Authorized PCP Requested Referral 05/02/2022 05/02/2023 1 1 Specialty Diagnoses / Procedures Referred By Contac t Referred To Contact Gynecology Diagnoses Screening for cervical cancer Procedures CONSULT TO GYNECOLOGY OFFICE/OUTPATIENT [facility] 60-74 MINUTES Maldonado Raza MD [address] [place] [address] Referral ID Status Reason Start Date Expiration Date Visits Requested Visits Authorized [id number] Authorized PCP Requested Referral Auto-Generate d Referral 05/02/2022 05/02/2023 1 1 Specialty Diagnoses / Procedures Referred By Contac t Referred To Contact Cardiology Diagnoses Encounter for other preprocedural examination Procedures Transthoracic Echo (TTE) Complete MD ECHO TRANSTHORC R-T 2D W/WO M-MODE REC F-UP/LMTD MD DOP ECHOCARD COLOR FLOW VELOCITY MAPPING MD DOP ECHOCARD PULSE WAVE W/SPECTRAL F-UP/[place] [address] [address] Department [place] [address] Referral ID Status Reason Start Date Expiration Date Visits Requested Visits Authorized [id number] Authorized Perform Procedure 3 08/18/2024 1 1 Specialty Diagnoses / Procedures Referred By Contac t Referred To Contact Radiology Diagnoses Encounter for other preprocedural examination Procedures Nuclear Stress Test CHG MYOCARDIAL SPECT MULTIPLE STUDIES CHG MYOCARDIAL SPECT SINGLE STUDY AT REST OR STRESS MD CV STRS TST XERS&/OR RX CONT ECG W/O I&R MD CV STRS TST XERS&/OR RX CONT ECG I&R ONLY MD CV STRS TST XERS&/OR RX CONT ECG TRCG ONLY MD CV STRS TST XERS&/OR RX CONT ECG W/SI&[place] [address] [address] Department [place] [address] Referral ID Status Reason Start Date Expiration Date V isits Requested Visits Authorized [id number] Authorized 06/02/2023 11/29/2023 5 5 Specialty Diagnoses / Procedures Referred By Contac t Referred To Contact Diagnoses Pre-transplant evaluation for kidney transplant Coronary artery disease involving [place] heart without angina pectoris, unspecified vessel or lesion type Procedures Cardiology Interpretation Of Nuclear Stress - See Other Report [place] [address] [address] Department [place] [address] Referral ID Status Reason Start Date Expiration Date V isits Requested Visits Authorized [id number] Pending Review 04/16/2024 04/16/2025 1 1 Specialty Diagnoses / Procedures Referred By Adele t Referred To Contact Radiology Diagnoses Pre-transplant evaluation for kidney transplant Coronary artery disease involving [place] heart without angina pectoris, unspecified vessel or lesion type Procedures Nuclear Stress Test CHG MYOCARDIAL SPECT [place] [address] [address] Department of Surgery-Transplant [place] [address] [facility] [id number] [place] [address] Referral ID Status Reason Start Date Expiration Date V isits Requested Visits Authorized [id number] Authorized 03/20/2024 03/20/2025 5 5 Specialty Diagnoses / Procedures Referred By Adele t Referred To Contact Radiology Diagnoses Pre-transplant evaluation for kidney transplant Procedures CT abdomen pelvis [place] [address] [address] [facility] Department of Surgery-Transplant [place] [address] [facility] [address] [place] [address] Referral ID Status Reason Start Date Expiration Date Visits Requested Visits Authorized [id number] Authorized Perform Procedure 03/20/2024 03/20/2025 1 1 Chief Complaint and Reason for Visit Chief Complaint EAR DRAINAGE, SINUS INFECTION EAR INFECTION Reason for Visit Acute bilateral mast oiditis Chief Complaint EAR DRAINAGE, SINUS INFECTION EAR INFECTION FLANK PAIN Reason for Visit Acute bilateral mast oiditis Chief Complaint OCCULAR ISCHEMIC Chief Complaint Admit Date LEFT BIG TOE INJURY December 31, 2024 9:4 3am HYPOXIA January 28, 2025 9:25a m Reason for Visit Admit Date Nail avulsion of toe December 31, 2024 9: 43am Chief Complaint Admit Date LEFT BIG TOE INJURY December 31, 2024 9:4 3am HYPOXIA January 28, 2025 9:25a m HYPOXIA January 29, 2025 11:26 am HYPOXIA January 30, 2025 9:04a m Reason for Visit Admit Date Nail avulsion of toe December 31, 2024 9: 43am Congestive heart failure (CHF) January 28, 2025 9:25am ESRD (end stage renal disease) on dialys is January 28, 2025 9:25am Medications Administered Section Inactive Administered Medications - up to 3 most recent administrations Medication Order MAR Action Action Date Dose Rate Site NaCl 0.9% iv infusion 5-30 mL/hr, INTRAVENOUS, CONTINUOUS, Starting on Mon11/15/22 at 0830, Until Mon11/15/22 at 1004, Preprocedure New Bag/Syringe/Bottle 11/15/2022 8:45 AM EDT 5 mL/hr 5 mL/hr Additional Source Comments INFORMATION SOURCE (unrecogn ized section and content) DATE CREATED AUTHOR 02/22/2018 [facility] DATE CREATED AUTHOR AUTHOR'S ORGANIZ ATION 09/12/2018 [facility] Christina Ricks DATE CREATED AUTHOR AUTHOR'S ORGANIZ ATION 02/13/2023 [facility] ([facility]) DATE CREATED AUTHOR AUTHOR'S ORGANIZ ATION 06/09/2023 [employer] DATE CREATED AUTHOR AUTHOR'S ORGANIZ ATION 06/21/2023 [facility] DATE CREATED AUTHOR AUTHOR'S ORGANIZ ATION 01/26/2024 [facility] DATE CREATED AUTHOR AUTHOR'S ORGANIZ ATION 05/14/2024 [facility] DATE CREATED AUTHOR AUTHOR'S ORGANIZ ATION 08/22/2024 [facility] DATE CREATED AUTHOR AUTHOR'S ORGANIZ ATION 12/28/2024 [facility] DATE CREATED AUTHOR AUTHOR'S ORGANIZ ATION 02/07/2025 [facility] DATE CREATED AUTHOR AUTHOR'S ORGANIZ ATION 02/24/2025 [facility] DATE CREATED AUTHOR AUTHOR'S ORGANIZ ATION 04/25/2025 [facility] DATE CREATED AUTHOR AUTHOR'S ORGANIZ ATION 05/14/2025 [facility] Source Comments (unrecognize d section and content) In the event this informatio n is protected by the Federal Confidentiality of Alcohol and Drug Abuse Patient Records regulations: The Federal rules restrict any use of the information to criminally investigate or prosecute any alcohol or drug abuse patient.[facility] the event this information is protected by the Federal Confidentiality of Alcohol and Drug Abuse Patient Records regulations: The Federal rules restrict any use of the information to criminally investigate or prosecute any alcohol or drug abuse patient.[facility] HospitalIn the event this information is protected by the Federal Confidentiality of Alcohol and Drug Abuse Patient Records regulations: The Federal rules restrict any use of the information to criminally investigate or prosecute any alcohol or drug abuse patient.[facility] HospitalIn the event this information is protected by the Federal Confidentiality of Alcohol and Drug Abuse Patient Records regulations: The Federal rules restrict any use of the information to criminally investigate or prosecute any alcohol or drug abuse patient.[facility] HospitalIn the event this information is protected by the Federal Confidentiality of Alcohol and Drug Abuse Patient Records regulations: The Federal rules restrict any use of the information to criminally investigate or prosecute any alcohol or drug abuse patient.[facility] HospitalIn the event this information is protected by the Federal Confidentiality of Alcohol and Drug Abuse Patient Records regulations: The Federal rules restrict any use of the information to criminally investigate or prosecute any alcohol or drug abuse patient.[facility] HospitalIn the event this information is protected by the Federal Confidentiality of Alcohol and Drug Abuse Patient Records regulations: The Federal rules restrict any use of the information to criminally investigate or prosecute any alcohol or drug abuse patient.[facility] HospitalIn the event this information is protected by the Federal Confidentiality of Alcohol and Drug Abuse Patient Records regulations: The Federal rules restrict any use of the information to criminally investigate or prosecute any alcohol or drug abuse patient.[facility] HospitalIn the event this information is protected by the Federal Confidentiality of Alcohol and Drug Abuse Patient Records regulations: The Federal rules restrict any use of the information to criminally investigate or prosecute any alcohol or drug abuse patient.[facility] HospitalIn the event this information is protected by the Federal Confidentiality of Alcohol and Drug Abuse Patient Records regulations: The Federal rules restrict any use of the information to criminally investigate or prosecute any alcohol or drug abuse patient.[facility] HospitalIn the event this information is protected by the Federal Confidentiality of Alcohol and Drug Abuse Patient Records regulations: The Federal rules restrict any use of the information to criminally investigate or prosecute any alcohol or drug abuse patient.[facility] HospitalIn the event this information is protected by the Federal Confidentiality of Alcohol and Drug Abuse Patient Records regulations: The Federal rules restrict any use of the information to criminally investigate or prosecute any alcohol or drug abuse patient.[facility] HospitalIn the event this information is protected by the Federal Confidentiality of Alcohol and Drug Abuse Patient Records regulations: The Federal rules restrict any use of the information to criminally investigate or prosecute any alcohol or drug abuse patient.[facility] HospitalIn the event this information is protected by the Federal Confidentiality of Alcohol and Drug Abuse Patient Records regulations: The Federal rules restrict any use of the information to criminally investigate or prosecute any alcohol or drug abuse patient.[facility] HospitalIn the event this information is protected by the Federal Confidentiality of Alcohol and Drug Abuse Patient Records regulations: The Federal rules restrict any use of the information to criminally investigate or prosecute any alcohol or drug abuse patient.[facility] HospitalIn the event this information is protected by the Federal Confidentiality of Alcohol and Drug Abuse Patient Records regulations: The Federal rules restrict any use of the information to criminally investigate or prosecute any alcohol or drug abuse patient.[facility] HospitalIn the event this information is protected by the Federal Confidentiality of Alcohol and Drug Abuse Patient Records regulations: The Federal rules restrict any use of the information to criminally investigate or prosecute any alcohol or drug abuse patient.[facility] HospitalIn the event this information is protected by the Federal Confidentiality of Alcohol and Drug Abuse Patient Records regulations: The Federal rules restrict any use of the information to criminally investigate or prosecute any alcohol or drug abuse patient.[facility] HospitalIn the event this information is protected by the Federal Confidentiality of Alcohol and Drug Abuse Patient Records regulations: The Federal rules restrict any use of the information to criminally investigate or prosecute any alcohol or drug abuse patient.[facility] HospitalIn the event this information is protected by the Federal Confidentiality of Alcohol and Drug Abuse Patient Records regulations: The Federal rules restrict any use of the information to criminally investigate or prosecute any alcohol or drug abuse patient.[facility] HospitalIn the event this information is protected by the Federal Confidentiality of Alcohol and Drug Abuse Patient Records regulations: The Federal rules restrict any use of the information to criminally investigate or prosecute any alcohol or drug abuse patient.[facility] HospitalIn the event this information is protected by the Federal Confidentiality of Alcohol and Drug Abuse Patient Records regulations: The Federal rules restrict any use of the information to criminally investigate or prosecute any alcohol or drug abuse patient.[facility] HospitalIn the event this information is protected by the Federal Confidentiality of Alcohol and Drug Abuse Patient Records regulations: The Federal rules restrict any use of the information to criminally investigate or prosecute any alcohol or drug abuse patient.[facility] HospitalIn the event this information is protected by the Federal Confidentiality of Alcohol and Drug Abuse Patient Records regulations: The Federal rules restrict any use of the information to criminally investigate or prosecute any alcohol or drug abuse patient.[facility] HospitalIn the event this information is protected by the Federal Confidentiality of Alcohol and Drug Abuse Patient Records regulations: The Federal rules restrict any use of the information to criminally investigate or prosecute any alcohol or drug abuse patient.[facility] HospitalIn the event this information is protected by the Federal Confidentiality of Alcohol and Drug Abuse Patient Records regulations: The Federal rules restrict any use of the information to criminally investigate or prosecute any alcohol or drug abuse patient.[facility] HospitalIn the event this information is protected by the Federal Confidentiality of Alcohol and Drug Abuse Patient Records regulations: The Federal rules restrict any use of the information to criminally investigate or prosecute any alcohol or drug abuse patient.[facility] HospitalIn the event this information is protected by the Federal Confidentiality of Alcohol and Drug Abuse Patient Records regulations: The Federal rules restrict any use of the information to criminally investigate or prosecute any alcohol or drug abuse patient.[facility] HospitalIn the event this information is protected by the Federal Confidentiality of Alcohol and Drug Abuse Patient Records regulations: The Federal rules restrict any use of the information to criminally investigate or prosecute any alcohol or drug abuse patient.[facility] HospitalIn the event this information is protected by the Federal Confidentiality of Alcohol and Drug Abuse Patient Records regulations: The Federal rules restrict any use of the information to criminally investigate or prosecute any alcohol or drug abuse patient.[facility] HospitalIn the event this information is protected by the Federal Confidentiality of Alcohol and Drug Abuse Patient Records regulations: The Federal rules restrict any use of the information to criminally investigate or prosecute any alcohol or drug abuse patient.[facility] HospitalIn the event this information is protected by the Federal Confidentiality of Alcohol and Drug Abuse Patient Records regulations: The Federal rules restrict any use of the information to criminally investigate or prosecute any alcohol or drug abuse patient.[facility] HospitalIn the event this information is protected by the Federal Confidentiality of Alcohol and Drug Abuse Patient Records regulations: The Federal rules restrict any use of the information to criminally investigate or prosecute any alcohol or drug abuse patient.[facility] the event this information is protected by the Federal Confidentiality of Alcohol and Drug Abuse Patient Records regulations: The Federal rules restrict any use of the information to criminally investigate or prosecute any alcohol or drug abuse patient.[facility]In the event this information is protected by the Federal Confidentiality of Alcohol and Drug Abuse Patient Records regulations: The Federal rules restrict any use of the information to criminally investigate or prosecute any alcohol or drug abuse patient.[facility]In the event this information is protected by the Federal Confidentiality of Alcohol and Drug Abuse Patient Records regulations: The Federal rules restrict any use of the information to criminally investigate or prosecute any alcohol or drug abuse patient.[facility]In the event this information is protected by the Federal Confidentiality of Alcohol and Drug Abuse Patient Records regulations: The Federal rules restrict any use of the information to criminally investigate or prosecute any alcohol or drug abuse patient.[facility] HospitalIn the event this information is protected by the Federal Confidentiality of Alcohol and Drug Abuse Patient Records regulations: The Federal rules restrict any use of the information to criminally investigate or prosecute any alcohol or drug abuse patient.[facility]In the event this information is protected by the Federal Confidentiality of Alcohol and Drug Abuse Patient Records regulations: The Federal rules restrict any use of the information to criminally investigate or prosecute any alcohol or drug abuse patient.[facility]In the event this information is protected by the Federal Confidentiality of Alcohol and Drug Abuse Patient Records regulations: The Federal rules restrict any use of the information to criminally investigate or prosecute any alcohol or drug abuse patient.[facility]In the event this information is protected by the Federal Confidentiality of Alcohol and Drug Abuse Patient Records regulations: The Federal rules restrict any use of the information to criminally investigate or prosecute any alcohol or drug abuse patient.[facility] HospitalIn the event this information is protected by the Federal Confidentiality of Alcohol and Drug Abuse Patient Records regulations: The Federal rules restrict any use of the information to criminally investigate or prosecute any alcohol or drug abuse patient.[facility] HospitalIn the event this information is protected by the Federal Confidentiality of Alcohol and Drug Abuse Patient Records regulations: The Federal rules restrict any use of the information to criminally investigate or prosecute any alcohol or drug abuse patient.[facility]In the event this information is protected by the Federal Confidentiality of Alcohol and Drug Abuse Patient Records regulations: The Federal rules restrict any use of the information to criminally investigate or prosecute any alcohol or drug abuse patient.[facility]In the event this information is protected by the Federal Confidentiality of Alcohol and Drug Abuse Patient Records regulations: The Federal rules restrict any use of the information to criminally investigate or prosecute any alcohol or drug abuse patient.[facility] HospitalIn the event this information is protected by the Federal Confidentiality of Alcohol and Drug Abuse Patient Records regulations: The Federal rules restrict any use of the information to criminally investigate or prosecute any alcohol or drug abuse patient.[facility] HospitalIn the event this information is protected by the Federal Confidentiality of Alcohol and Drug Abuse Patient Records regulations: The Federal rules restrict any use of the information to criminally investigate or prosecute any alcohol or drug abuse patient.[facility] HospitalIn the event this information is protected by the Federal Confidentiality of Alcohol and Drug Abuse Patient Records regulations: The Federal rules restrict any use of the information to criminally investigate or prosecute any alcohol or drug abuse patient.[facility] HospitalIn the event this information is protected by the Federal Confidentiality of Alcohol and Drug Abuse Patient Records regulations: The Federal rules restrict any use of the information to criminally investigate or prosecute any alcohol or drug abuse patient.[facility] HospitalIn the event this information is protected by the Federal Confidentiality of Alcohol and Drug Abuse Patient Records regulations: The Federal rules restrict any use of the information to criminally investigate or prosecute any alcohol or drug abuse patient.[facility] HospitalIn the event this information is protected by the Federal Confidentiality of Alcohol and Drug Abuse Patient Records regulations: The Federal rules restrict any use of the information to criminally investigate or prosecute any alcohol or drug abuse patient.[facility] HospitalIn the event this information is protected by the Federal Confidentiality of Alcohol and Drug Abuse Patient Records regulations: The Federal rules restrict any use of the information to criminally investigate or prosecute any alcohol or drug abuse patient.[facility] HospitalIn the event this information is protected by the Federal Confidentiality of Alcohol and Drug Abuse Patient Records regulations: The Federal rules restrict any use of the information to criminally investigate or prosecute any alcohol or drug abuse patient.[facility] HospitalIn the event this information is protected by the Federal Confidentiality of Alcohol and Drug Abuse Patient Records regulations: The Federal rules restrict any use of the information to criminally investigate or prosecute any alcohol or drug abuse patient.[facility] HospitalIn the event this information is protected by the Federal Confidentiality of Alcohol and Drug Abuse Patient Records regulations: The Federal rules restrict any use of the information to criminally investigate or prosecute any alcohol or drug abuse patient.[facility] HospitalIn the event this information is protected by the Federal Confidentiality of Alcohol and Drug Abuse Patient Records regulations: The Federal rules restrict any use of the information to criminally investigate or prosecute any alcohol or drug abuse patient.[facility] HospitalIn the event this information is protected by the Federal Confidentiality of Alcohol and Drug Abuse Patient Records regulations: The Federal rules restrict any use of the information to criminally investigate or prosecute any alcohol or drug abuse patient.[facility] HospitalIn the event this information is protected by the Federal Confidentiality of Alcohol and Drug Abuse Patient Records regulations: The Federal rules restrict any use of the information to criminally investigate or prosecute any alcohol or drug abuse patient.[facility] HospitalIn the event this information is protected by the Federal Confidentiality of Alcohol and Drug Abuse Patient Records regulations: The Federal rules restrict any use of the information to criminally investigate or prosecute any alcohol or drug abuse patient.[facility] HospitalIn the event this information is protected by the Federal Confidentiality of Alcohol and Drug Abuse Patient Records regulations: The Federal rules restrict any use of the information to criminally investigate or prosecute any alcohol or drug abuse patient.[facility] HospitalIn the event this information is protected by the Federal Confidentiality of Alcohol and Drug Abuse Patient Records regulations: The Federal rules restrict any use of the information to criminally investigate or prosecute any alcohol or drug abuse patient.[facility] HospitalIn the event this information is protected by the Federal Confidentiality of Alcohol and Drug Abuse Patient Records regulations: The Federal rules restrict any use of the information to criminally investigate or prosecute any alcohol or drug abuse patient.[facility] HospitalIn the event this information is protected by the Federal Confidentiality of Alcohol and Drug Abuse Patient Records regulations: The Federal rules restrict any use of the information to criminally investigate or prosecute any alcohol or drug abuse patient.[facility] HospitalIn the event this information is protected by the Federal Confidentiality of Alcohol and Drug Abuse Patient Records regulations: The Federal rules restrict any use of the information to criminally investigate or prosecute any alcohol or drug abuse patient.[facility] HospitalIn the event this information is protected by the Federal Confidentiality of Alcohol and Drug Abuse Patient Records regulations: The Federal rules restrict any use of the information to criminally investigate or prosecute any alcohol or drug abuse patient.[facility] HospitalIn the event this information is protected by the Federal Confidentiality of Alcohol and Drug Abuse Patient Records regulations: The Federal rules restrict any use of the information to criminally investigate or prosecute any alcohol or drug abuse patient.[facility] HospitalIn the event this information is protected by the Federal Confidentiality of Alcohol and Drug Abuse Patient Records regulations: The Federal rules restrict any use of the information to criminally investigate or prosecute any alcohol or drug abuse patient.[facility]In the event this information is protected by the Federal Confidentiality of Alcohol and Drug Abuse Patient Records regulations: The Federal rules restrict any use of the information to criminally investigate or prosecute any alcohol or drug abuse patient.[facility] HospitalIn the event this information is protected by the Federal Confidentiality of Alcohol and Drug Abuse Patient Records regulations: The Federal rules restrict any use of the information to criminally investigate or prosecute any alcohol or drug abuse patient.[facility] HospitalIn the event this information is protected by the Federal Confidentiality of Alcohol and Drug Abuse Patient Records regulations: The Federal rules restrict any use of the information to criminally investigate or prosecute any alcohol or drug abuse patient.[facility] HospitalIn the event this information is protected by the Federal Confidentiality of Alcohol and Drug Abuse Patient Records regulations: The Federal rules restrict any use of the information to criminally investigate or prosecute any alcohol or drug abuse patient.[facility] HospitalIn the event this information is protected by the Federal Confidentiality of Alcohol and Drug Abuse Patient Records regulations: The Federal rules restrict any use of the information to criminally investigate or prosecute any alcohol or drug abuse patient.[facility] HospitalIn the event this information is protected by the Federal Confidentiality of Alcohol and Drug Abuse Patient Records regulations: The Federal rules restrict any use of the information to criminally investigate or prosecute any alcohol or drug abuse patient.[facility] HospitalIn the event this information is protected by the Federal Confidentiality of Alcohol and Drug Abuse Patient Records regulations: The Federal rules restrict any use of the information to criminally investigate or prosecute any alcohol or drug abuse patient.[facility] HospitalIn the event this information is protected by the Federal Confidentiality of Alcohol and Drug Abuse Patient Records regulations: The Federal rules restrict any use of the information to criminally investigate or prosecute any alcohol or drug abuse patient.[facility] HospitalIn the event this information is protected by the Federal Confidentiality of Alcohol and Drug Abuse Patient Records regulations: The Federal rules restrict any use of the information to criminally investigate or prosecute any alcohol or drug abuse patient.[facility] HospitalIn the event this information is protected by the Federal Confidentiality of Alcohol and Drug Abuse Patient Records regulations: The Federal rules restrict any use of the information to criminally investigate or prosecute any alcohol or drug abuse patient.[facility] HospitalIn the event this information is protected by the Federal Confidentiality of Alcohol and Drug Abuse Patient Records regulations: The Federal rules restrict any use of the information to criminally investigate or prosecute any alcohol or drug abuse patient.[facility] HospitalIn the event this information is protected by the Federal Confidentiality of Alcohol and Drug Abuse Patient Records regulations: The Federal rules restrict any use of the information to criminally investigate or prosecute any alcohol or drug abuse patient.[facility] HospitalIn the event this information is protected by the Federal Confidentiality of Alcohol and Drug Abuse Patient Records regulations: The Federal rules restrict any use of the information to criminally investigate or prosecute any alcohol or drug abuse patient.[facility] HospitalIn the event this information is protected by the Federal Confidentiality of Alcohol and Drug Abuse Patient Records regulations: The Federal rules restrict any use of the information to criminally investigate or prosecute any alcohol or drug abuse patient.[facility] HospitalIn the event this information is protected by the Federal Confidentiality of Alcohol and Drug Abuse Patient Records regulations: The Federal rules restrict any use of the information to criminally investigate or prosecute any alcohol or drug abuse patient.[facility] HospitalIn the event this information is protected by the Federal Confidentiality of Alcohol and Drug Abuse Patient Records regulations: The Federal rules restrict any use of the information to criminally investigate or prosecute any alcohol or drug abuse patient.[facility] HospitalIn the event this information is protected by the Federal Confidentiality of Alcohol and Drug Abuse Patient Records regulations: The Federal rules restrict any use of the information to criminally investigate or prosecute any alcohol or drug abuse patient.[facility] HospitalIn the event this information is protected by the Federal Confidentiality of Alcohol and Drug Abuse Patient Records regulations: The Federal rules restrict any use of the information to criminally investigate or prosecute any alcohol or drug abuse patient.[facility] HospitalIn the event this information is protected by the Federal Confidentiality of Alcohol and Drug Abuse Patient Records regulations: The Federal rules restrict any use of the information to criminally investigate or prosecute any alcohol or drug abuse patient.[facility] HospitalIn the event this information is protected by the Federal Confidentiality of Alcohol and Drug Abuse Patient Records regulations: The Federal rules restrict any use of the information to criminally investigate or prosecute any alcohol or drug abuse patient.[facility] HospitalIn the event this information is protected by the Federal Confidentiality of Alcohol and Drug Abuse Patient Records regulations: The Federal rules restrict any use of the information to criminally investigate or prosecute any alcohol or drug abuse patient.[facility] HospitalIn the event this information is protected by the Federal Confidentiality of Alcohol and Drug Abuse Patient Records regulations: The Federal rules restrict any use of the information to criminally investigate or prosecute any alcohol or drug abuse patient.[facility] HospitalIn the event this information is protected by the Federal Confidentiality of Alcohol and Drug Abuse Patient Records regulations: The Federal rules restrict any use of the information to criminally investigate or prosecute any alcohol or drug abuse patient.[facility] HospitalIn the event this information is protected by the Federal Confidentiality of Alcohol and Drug Abuse Patient Records regulations: The Federal rules restrict any use of the information to criminally investigate or prosecute any alcohol or drug abuse patient.[facility] HospitalIn the event this information is protected by the Federal Confidentiality of Alcohol and Drug Abuse Patient Records regulations: The Federal rules restrict any use of the information to criminally investigate or prosecute any alcohol or drug abuse patient.[facility] HospitalIn the event this information is protected by the Federal Confidentiality of Alcohol and Drug Abuse Patient Records regulations: The Federal rules restrict any use of the information to criminally investigate or prosecute any alcohol or drug abuse patient.[facility] HospitalIn the event this information is protected by the Federal Confidentiality of Alcohol and Drug Abuse Patient Records regulations: The Federal rules restrict any use of the information to criminally investigate or prosecute any alcohol or drug abuse patient.[facility] HospitalIn the event this information is protected by the Federal Confidentiality of Alcohol and Drug Abuse Patient Records regulations: The Federal rules restrict any use of the information to criminally investigate or prosecute any alcohol or drug abuse patient.[facility] HospitalIn the event this information is protected by the Federal Confidentiality of Alcohol and Drug Abuse Patient Records regulations: The Federal rules restrict any use of the information to criminally investigate or prosecute any alcohol or drug abuse patient.[facility] HospitalIn the event this information is protected by the Federal Confidentiality of Alcohol and Drug Abuse Patient Records regulations: The Federal rules restrict any use of the information to criminally investigate or prosecute any alcohol or drug abuse patient.[facility] HospitalIn the event this information is protected by the Federal Confidentiality of Alcohol and Drug Abuse Patient Records regulations: The Federal rules restrict any use of the information to criminally investigate or prosecute any alcohol or drug abuse patient.[facility] HospitalIn the event this information is protected by the Federal Confidentiality of Alcohol and Drug Abuse Patient Records regulations: The Federal rules restrict any use of the information to criminally investigate or prosecute any alcohol or drug abuse patient.[facility] HospitalIn the event this information is protected by the Federal Confidentiality of Alcohol and Drug Abuse Patient Records regulations: The Federal rules restrict any use of the information to criminally investigate or prosecute any alcohol or drug abuse patient.[facility] HospitalIn the event this information is protected by the Federal Confidentiality of Alcohol and Drug Abuse Patient Records regulations: The Federal rules restrict any use of the information to criminally investigate or prosecute any alcohol or drug abuse patient.[facility] HospitalIn the event this information is protected by the Federal Confidentiality of Alcohol and Drug Abuse Patient Records regulations: The Federal rules restrict any use of the information to criminally investigate or prosecute any alcohol or drug abuse patient.[facility]In the event this information is protected by the Federal Confidentiality of Alcohol and Drug Abuse Patient Records regulations: The Federal rules restrict any use of the information to criminally investigate or prosecute any alcohol or drug abuse patient.[facility] HospitalIn the event this information is protected by the Federal Confidentiality of Alcohol and Drug Abuse Patient Records regulations: The Federal rules restrict any use of the information to criminally investigate or prosecute any alcohol or drug abuse patient.[facility] HospitalIn the event this information is protected by the Federal Confidentiality of Alcohol and Drug Abuse Patient Records regulations: The Federal rules restrict any use of the information to criminally investigate or prosecute any alcohol or drug abuse patient.[facility]In the event this information is protected by the Federal Confidentiality of Alcohol and Drug Abuse Patient Records regulations: The Federal rules restrict any use of the information to criminally investigate or prosecute any alcohol or drug abuse patient.[facility]In the event this information is protected by the Federal Confidentiality of Alcohol and Drug Abuse Patient Records regulations: The Federal rules restrict any use of the information to criminally investigate or prosecute any alcohol or drug abuse patient.[facility]In the event this information is protected by the Federal Confidentiality of Alcohol and Drug Abuse Patient Records regulations: The Federal rules restrict any use of the information to criminally investigate or prosecute any alcohol or drug abuse patient.[facility]In the event this information is protected by the Federal Confidentiality of Alcohol and Drug Abuse Patient Records regulations: The Federal rules restrict any use of the information to criminally investigate or prosecute any alcohol or drug abuse patient.[facility]In the event this information is protected by the Federal Confidentiality of Alcohol and Drug Abuse Patient Records regulations: The Federal rules restrict any use of the information to criminally investigate or prosecute any alcohol or drug abuse patient.[facility]In the event this information is protected by the Federal Confidentiality of Alcohol and Drug Abuse Patient Records regulations: The Federal rules restrict any use of the information to criminally investigate or prosecute any alcohol or drug abuse patient.[facility]In the event this information is protected by the Federal Confidentiality of Alcohol and Drug Abuse Patient Records regulations: The Federal rules restrict any use of the information to criminally investigate or prosecute any alcohol or drug abuse patient.[facility]In the event this information is protected by the Federal Confidentiality of Alcohol and Drug Abuse Patient Records regulations: The Federal rules restrict any use of the information to criminally investigate or prosecute any alcohol or drug abuse patient.[facility]In the event this information is protected by the Federal Confidentiality of Alcohol and Drug Abuse Patient Records regulations: The Federal rules restrict any use of the information to criminally investigate or prosecute any alcohol or drug abuse patient.[facility]In the event this information is protected by the Federal Confidentiality of Alcohol and Drug Abuse Patient Records regulations: The Federal rules restrict any use of the information to criminally investigate or prosecute any alcohol or drug abuse patient.[facility]In the event this information is protected by the Federal Confidentiality of Alcohol and Drug Abuse Patient Records regulations: The Federal rules restrict any use of the information to criminally investigate or prosecute any alcohol or drug abuse patient.[facility]In the event this information is protected by the Federal Confidentiality of Alcohol and Drug Abuse Patient Records regulations: The Federal rules restrict any use of the information to criminally investigate or prosecute any alcohol or drug abuse patient.[facility]In the event this information is protected by the Federal Confidentiality of Alcohol and Drug Abuse Patient Records regulations: The Federal rules restrict any use of the information to criminally investigate or prosecute any alcohol or drug abuse patient.[facility] HospitalIn the event this information is protected by the Federal Confidentiality of Alcohol and Drug Abuse Patient Records regulations: The Federal rules restrict any use of the information to criminally investigate or prosecute any alcohol or drug abuse patient.[facility] HospitalIn the event this information is protected by the Federal Confidentiality of Alcohol and Drug Abuse Patient Records regulations: The Federal rules restrict any use of the information to criminally investigate or prosecute any alcohol or drug abuse patient.[facility] HospitalIn the event this information is protected by the Federal Confidentiality of Alcohol and Drug Abuse Patient Records regulations: The Federal rules restrict any use of the information to criminally investigate or prosecute any alcohol or drug abuse patient.[facility] HospitalIn the event this information is protected by the Federal Confidentiality of Alcohol and Drug Abuse Patient Records regulations: The Federal rules restrict any use of the information to criminally investigate or prosecute any alcohol or drug abuse patient.[facility] HospitalIn the event this information is protected by the Federal Confidentiality of Alcohol and Drug Abuse Patient Records regulations: The Federal rules restrict any use of the information to criminally investigate or prosecute any alcohol or drug abuse patient.[facility] HospitalIn the event this information is protected by the Federal Confidentiality of Alcohol and Drug Abuse Patient Records regulations: The Federal rules restrict any use of the information to criminally investigate or prosecute any alcohol or drug abuse patient.[facility] HospitalIn the event this information is protected by the Federal Confidentiality of Alcohol and Drug Abuse Patient Records regulations: The Federal rules restrict any use of the information to criminally investigate or prosecute any alcohol or drug abuse patient.[facility] HospitalIn the event this information is protected by the Federal Confidentiality of Alcohol and Drug Abuse Patient Records regulations: The Federal rules restrict any use of the information to criminally investigate or prosecute any alcohol or drug abuse patient.[facility] HospitalIn the event this information is protected by the Federal Confidentiality of Alcohol and Drug Abuse Patient Records regulations: The Federal rules restrict any use of the information to criminally investigate or prosecute any alcohol or drug abuse patient.[facility] HospitalIn the event this information is protected by the Federal Confidentiality of Alcohol and Drug Abuse Patient Records regulations: The Federal rules restrict any use of the information to criminally investigate or prosecute any alcohol or drug abuse patient.[facility] HospitalIn the event this information is protected by the Federal Confidentiality of Alcohol and Drug Abuse Patient Records regulations: The Federal rules restrict any use of the information to criminally investigate or prosecute any alcohol or drug abuse patient.[facility] HospitalIn the event this information is protected by the Federal Confidentiality of Alcohol and Drug Abuse Patient Records regulations: The Federal rules restrict any use of the information to criminally investigate or prosecute any alcohol or drug abuse patient.[facility] HospitalIn the event this information is protected by the Federal Confidentiality of Alcohol and Drug Abuse Patient Records regulations: The Federal rules restrict any use of the information to criminally investigate or prosecute any alcohol or drug abuse patient.[facility] HospitalIn the event this information is protected by the Federal Confidentiality of Alcohol and Drug Abuse Patient Records regulations: The Federal rules restrict any use of the information to criminally investigate or prosecute any alcohol or drug abuse patient.[facility] HospitalIn the event this information is protected by the Federal Confidentiality of Alcohol and Drug Abuse Patient Records regulations: The Federal rules restrict any use of the information to criminally investigate or prosecute any alcohol or drug abuse patient.[facility] HospitalIn the event this information is protected by the Federal Confidentiality of Alcohol and Drug Abuse Patient Records regulations: The Federal rules restrict any use of the information to criminally investigate or prosecute any alcohol or drug abuse patient.[facility] HospitalIn the event this information is protected by the Federal Confidentiality of Alcohol and Drug Abuse Patient Records regulations: The Federal rules restrict any use of the information to criminally investigate or prosecute any alcohol or drug abuse patient.[facility] HospitalIn the event this information is protected by the Federal Confidentiality of Alcohol and Drug Abuse Patient Records regulations: The Federal rules restrict any use of the information to criminally investigate or prosecute any alcohol or drug abuse patient.[facility] HospitalIn the event this information is protected by the Federal Confidentiality of Alcohol and Drug Abuse Patient Records regulations: The Federal rules restrict any use of the information to criminally investigate or prosecute any alcohol or drug abuse patient.[facility] HospitalIn the event this information is protected by the Federal Confidentiality of Alcohol and Drug Abuse Patient Records regulations: The Federal rules restrict any use of the information to criminally investigate or prosecute any alcohol or drug abuse patient.[facility] HospitalIn the event this information is protected by the Federal Confidentiality of Alcohol and Drug Abuse Patient Records regulations: The Federal rules restrict any use of the information to criminally investigate or prosecute any alcohol or drug abuse patient.[facility] HospitalIn the event this information is protected by the Federal Confidentiality of Alcohol and Drug Abuse Patient Records regulations: The Federal rules restrict any use of the information to criminally investigate or prosecute any alcohol or drug abuse patient.[facility] HospitalIn the event this information is protected by the Federal Confidentiality of Alcohol and Drug Abuse Patient Records regulations: The Federal rules restrict any use of the information to criminally investigate or prosecute any alcohol or drug abuse patient.[facility] HospitalIn the event this information is protected by the Federal Confidentiality of Alcohol and Drug Abuse Patient Records regulations: The Federal rules restrict any use of the information to criminally investigate or prosecute any alcohol or drug abuse patient.[facility] HospitalIn the event this information is protected by the Federal Confidentiality of Alcohol and Drug Abuse Patient Records regulations: The Federal rules restrict any use of the information to criminally investigate or prosecute any alcohol or drug abuse patient.[facility] HospitalIn the event this information is protected by the Federal Confidentiality of Alcohol and Drug Abuse Patient Records regulations: The Federal rules restrict any use of the information to criminally investigate or prosecute any alcohol or drug abuse patient.[facility] HospitalIn the event this information is protected by the Federal Confidentiality of Alcohol and Drug Abuse Patient Records regulations: The Federal rules restrict any use of the information to criminally investigate or prosecute any alcohol or drug abuse patient.[facility] HospitalIn the event this information is protected by the Federal Confidentiality of Alcohol and Drug Abuse Patient Records regulations: The Federal rules restrict any use of the information to criminally investigate or prosecute any alcohol or drug abuse patient.[facility] HospitalIn the event this information is protected by the Federal Confidentiality of Alcohol and Drug Abuse Patient Records regulations: The Federal rules restrict any use of the information to criminally investigate or prosecute any alcohol or drug abuse patient.[facility] HospitalIn the event this information is protected by the Federal Confidentiality of Alcohol and Drug Abuse Patient Records regulations: The Federal rules restrict any use of the information to criminally investigate or prosecute any alcohol or drug abuse patient.[facility] HospitalIn the event this information is protected by the Federal Confidentiality of Alcohol and Drug Abuse Patient Records regulations: The Federal rules restrict any use of the information to criminally investigate or prosecute any alcohol or drug abuse patient.[facility] HospitalIn the event this information is protected by the Federal Confidentiality of Alcohol and Drug Abuse Patient Records regulations: The Federal rules restrict any use of the information to criminally investigate or prosecute any alcohol or drug abuse patient.[facility] HospitalIn the event this information is protected by the Federal Confidentiality of Alcohol and Drug Abuse Patient Records regulations: The Federal rules restrict any use of the information to criminally investigate or prosecute any alcohol or drug abuse patient.[facility] HospitalIn the event this information is protected by the Federal Confidentiality of Alcohol and Drug Abuse Patient Records regulations: The Federal rules restrict any use of the information to criminally investigate or prosecute any alcohol or drug abuse patient.[facility] HospitalIn the event this information is protected by the Federal Confidentiality of Alcohol and Drug Abuse Patient Records regulations: The Federal rules restrict any use of the information to criminally investigate or prosecute any alcohol or drug abuse patient.[facility] HospitalIn the event this information is protected by the Federal Confidentiality of Alcohol and Drug Abuse Patient Records regulations: The Federal rules restrict any use of the information to criminally investigate or prosecute any alcohol or drug abuse patient.[facility] HospitalIn the event this information is protected by the Federal Confidentiality of Alcohol and Drug Abuse Patient Records regulations: The Federal rules restrict any use of the information to criminally investigate or prosecute any alcohol or drug abuse patient.[facility] HospitalIn the event this information is protected by the Federal Confidentiality of Alcohol and Drug Abuse Patient Records regulations: The Federal rules restrict any use of the information to criminally investigate or prosecute any alcohol or drug abuse patient.[facility] HospitalIn the event this information is protected by the Federal Confidentiality of Alcohol and Drug Abuse Patient Records regulations: The Federal rules restrict any use of the information to criminally investigate or prosecute any alcohol or drug abuse patient.[facility] Reason for Visit (unrecogniz ed section and content) Reason Comments Radiology CT Specialty Diagnoses / Procedures Referred By Contac t Referred To Contact CT IMAGING Diagnoses Gross hematuria Procedures CT FLANK WO IVCON CT ABD & PELVIS W/O CONTRAST Maldonado Raza MD [address] [place] [address] Ct Imaging Referral ID Status Reason Start Date Expiration Date V isits Requested Visits Authorized [id number] Closed Auto-Generate d Referral 11/26/2021 12/26/2022 1 1 Reason Onset Date Comments Comunity Monitoring Outreach 12/10/2021 ESR D Telephonic CDM Outreach Reason Comments Orders Reason Comments Results Reason Comments Consult Specialty Diagnoses / Procedures Referred By Contac t Referred To Contact Urology Diagnoses Acute left flank pain Gross hematuria Procedures CONSULT TO UROLOGY OFFICE/OUTPATIENT NEW HIGH MDM 60-74 MINUTES Maldonado Raza MD [address] [place] [address] Referral ID Status Reason Start Date Expiration Date V isits Requested Visits Authorized [id number] Closed PCP Requested Referral 11/26/2021 11/26/2022 1 1 Reason Onset Date Comments Community Monitoring Outreach 12/27/2021 ES R Telephonic CDM Outreach Reason Onset Date Comments Community Monitoring Outreach 12/28/[address] Telephonic CDM Outreach Reason Comments Referral - Kidney Txp Reason Onset Date Comments Community Monitoring Outreach 01/12/[address] CDM Outreach Reason Onset Date Comments Refill Request 01/13/2022 Reason Onset Date Comments Community Monitoring Outreach 01/27/[address] Telephonic CDM Outreach Reason Onset Date Comments Community Monitoring Outreach 02/14/[address] Telephonic CDM Outreach Reason Onset Date Comments Community Monitoring Outreach 02/17/[address] Telephonic CDM Outreach Reason Onset Date Comments Community Monitoring Outreach 03/18/[address] CDM Outreach Reason Onset Date Comments Community Monitoring Outreach 04/04/[address] Telephonic CDM Outreach Reason Onset Date Comments Community Monitoring Outreach 04/19/2022 Reason Onset Date Comments Community Monitoring Outreach 04/22/2022 Reason Comments 2 month follow-up Reason Comments Medication Problem Reason Comments Dialysis Reason Onset Date Comments Refill Request 06/07/2022 Reason Comments Procedure Instructions Reason Onset Date Comments Community Monitoring Outreach 06/16/2022 Reason Comments Patient Update Reason Onset Date Comments Community Monitoring Outreach 07/04/2022 Reason Onset Date Comments Community Monitoring Outreach 08/04/2022 Reason Comments Cough Fever Reason Comments Appointment Reason Onset Date Comments Community Monitoring Outreach 09/06/2022 Reason Onset Date Comments Refill Request 09/08/2022 Reason Comments Procedure Reason Onset Date Comments Refill Request 09/13/2022 Reason Comments 4 month follow up Currently on cipro f or kidney infection - was seen in [facility] ER yesterday Reason Comments Consult COLONOSCOPY Reason Onset Date Comments Community Monitoring Outreach 10/13/2022 Reason Onset Date Comments Population Health Navigation Outreach 10/25/2022 [facility] PCSA Reason Onset Date Comments Community Monitoring Outreach 11/14/2022 Reason Comments Medication Question Reason Onset Date Comments Community Monitoring Outresach 12/07/2022 Reason Onset Date Comments Refill Request 12/12/2022 Reason Comments Information Results to Reason Comments Follow Up colonoscopy Reason Onset Date Comments Community Monitoring Outreach 01/02/2023 Reason Onset Date Comments Community Monitoring Outreach 02/01/2023 Reason Onset Date Comments Community Monitoring Outreach 02/24/2023 Reason Comments ACCESS ISSUE Reason Comments Procedure RUE fistulagram Reason Onset Date Comments Community Monitoring Outreach 04/11/2023 Reason Onset Date Comments Refill Request 04/15/2023 Reason Onset Date Comments Refill Request 05/28/2023 Reason Comments AVF ISSUE Reason Onset Date Comments Community Monitoring Outreach 06/06/2023 Reason Comments Surgical Followup Reason Comments Sandy Bhatti is a 4 9 year old female, fistula gram scheduled today. Pt. Is complaining of SOB Pre op EKG possible inferior STEMI, housing quality standard inspector dr. Barros was called and said no STEMI . And the EKG changes related to fluid overload. BMP K 6.2 . Procedure was canceled , nephrology will be called for HD Reason Comments Schedule Surgery Reason Onset Date Comments Transition Of Care 06/22/2023 TCM initial o [facility] discharge 06/21/23 Reason Comments Pseudophakia Left eye, Complicati ons Reason Comments patient outreach Reason Comments Transition Of Care Reason Onset Date Comments Community Monitoring Outreach 07/28/2023 Specialty Diagnoses / Procedures Referred By Adele t Referred To Contact Cardiology Diagnoses Encounter for other preprocedural examination Procedures Transthoracic Echo (TTE) Complete MD ECHO TRANSTHORC R-T 2D W/WO M-MODE REC F-UP/LMTD MD DOP ECHOCARD COLOR FLOW VELOCITY MAPPING MD DOP ECHOCARD PULSE WAVE W/SPECTRAL F-UP/[place] [address] [address] [facility] of Surgery-Transplant [place] [id number] Referral ID Status Reason Start Date Expiration Date Visits Requested Visits Authorized [id number] Authorized Perform Procedure 3 08/18/2024 1 1 Specialty Diagnoses / Procedures Referred By Adele nogueira Referred To Contact Radiology Diagnoses Encounter for other preprocedural examination Procedures Nuclear Stress Test CHG MYOCARDIAL SPECT MULTIPLE STUDIES CHG MYOCARDIAL SPECT SINGLE STUDY AT REST OR STRESS MD CV STRS TST XERS&/OR RX CONT ECG W/O I&R MD CV STRS TST XERS&/OR RX CONT ECG I&R ONLY MD CV STRS TST XERS&/OR RX CONT ECG TRCG ONLY MD CV STRS TST XERS&/OR RX CONT ECG W/SI&[place] [address] [address] [facility] Department of Surgery-Transplant [place] [id number] Referral ID Status Reason Start Date Expiration Date V isits Requested Visits Authorized [id number] Authorized 06/02/2023 11/29/2023 5 5 Reason Onset Date Comments Community Monitoring Outreach 10/05/2023 Reason Comments Pre-Op Exam Reason Onset Date Comments Community Monitoring Outreach 11/08/2023 Reason Comments Patient Question Reason Comments Post-op (Ophthalmology) Left Eye Reason Comments status post corneal transplant OS Reason Onset Date Comments Refill Request 12/11/2023 Reason Comments CARD New Patient Consult ASCVD and Abnor mal EKG. Specialty Diagnoses / Procedures Referred By Adele nogueira Referred To Contact Cardiology Diagnoses ASCVD (arteriosclerotic cardiovascular disease) Abnormal EKG Procedures CONSULT TO CARDIOLOGY OFFICE/OUTPATIENT NEW HIGH MDM 60 MINUTES Maldonado Raza MD [address] [place] [address] Referral ID Status Reason Start Date Expiration Date V isits Requested Visits Authorized [id number] Closed PCP Requested Referral 09/14/2023 09/13/2024 1 1 Reason Onset Date Comments DAVITA 12/11/2023 Reason Onset Date Comments [facility] Reason Onset Date Comments Refill Request 01/09/2024 Reason Onset Date Comments DAVITA 01/08/2024 Reason Onset Date Comments Community Monitoring Outreach 01/08/2024 Reason Onset Date Comments Community Monitoring Outreach 01/24/2024 Reason Comments Status post corneal transplant OS Reason Onset Date Comments Community Monitoring Outreach 02/26/2024 Reason Comments F/U 3 Month Reason Onset Date Comments Community Monitoring Outreach 03/29/2024 Reason Onset Date Comments Population Health Navigation Outreach 04/10/2024 [facility] [place] Reason Comments Consult Reason Onset Date Comments Community Monitoring Outreach 04/24/2024 Reason Comments Patient Education Reason Comments Established Patient Reason Onset Date Comments Refill Request 05/10/2024 Reason Onset Date Comments DAVITA 05/13/2024 Reason Onset Date Comments CD 05/22/2024 Community Mon[facility] ring Outreach Call Reason Comments Established Patient Follow-Up 6 month fo llow up, hx of ASCVD Reason Comments Medicare Wellness Exam F/U 3 Month Reason Onset Date Comments [facility] 06/25/2024 Community [facility] ring Outreach Call Reason Onset Date Comments [facility] 07/02/2024 Community Monito ring Outreach Call Reason Comments Post Op Reason Onset Date Comments CD 07/30/2024 Community [facility] ring Outreach Call Reason Onset Date Comments CD 07/31/2024 Community [facility] Outreach Call Reason Onset Date Comments CD 08/15/2024 Community Mon[facility] ring Outreach Call Specialty Diagnoses / Procedures Referred By Adele t Referred To Contact Radiology Diagnoses Pre-transplant evaluation for kidney transplant Coronary artery disease involving [place] heart without angina pectoris, unspecified vessel or lesion type Procedures Nuclear Stress Test CHG MYOCARDIAL S[place] [address] [address] Department [place] [address] [place] [address] [address] [place] [address] Referral ID Status Reason Start Date Expiration Date V isits Requested Visits Authorized [id number] Authorized 03/20/2024 03/20/2025 5 5 Specialty Diagnoses / Procedures Referred By Adele nogueira Referred To Contact Radiology Diagnoses Pre-transplant evaluation for kidney transplant Procedures CT abdomen [place] [address] [address] Department [place] [address] [place] [address] [place] [address] [address] Referral ID Status Reason Start Date Expiration Date Visits Requested Visits Authorized [id number] Authorized Perform Procedure 03/20/2024 03/20/2025 1 1 Reason Onset Date Comments Refill Request 08/26/2024 Reason Onset Date Comments Refill Request 11/25/2024 Reason Onset Date Comments Refill Request 11/26/2024 Reason Comments 5 month follow-up Reason Comments Procedure RUE fistulogram Reason Comments surgery date Reason Comments Patient Update Surgery Reason Comments Decreased Vision Both Eyes Uveitis vs retinal dystrophy evaluation Reason Comments Hospital F/U Reason Comments Hospital F/U Reason Onset Date Comments Refill Request 03/12/2025 Reason Comments Patient Question r/t kidney transplant Care Teams (unrecognized sec tion and content) Sales And Marketing Professional Relationship Specialty Start Date End Date Maldonado Raza MD [address] [place], [place] [address] PCP - General Internal Medicine 03/27/12 [place] [facility] [address] [place] [address] Pharmacist Pharmacy 07/30/19 Santosh Landa, form grader operatorAvionics Electronics Technician Internal Medicine 11/25/21 Sales And Marketing Professional Relationship Specialty Start Date End Date Maldonado Raza MD [address] [place], [place] [address] PCP - General Internal Medicine 03/27/12 [place] [facility] [address] [place], [place] [address] Pharmacist Pharmacy 07/30/19 Santosh Landa, form grader operatorAvionics Electronics Technician Internal Medicine 11/25/21 Sales And Marketing Professional Relationship Specialty Start Date End Date Maldonado Raza MD [address] [place] [address] PCP - General Internal Medicine 03/27/12 [facility] [address] [place] [address] Pharmacist Pharmacy 07/30/19 Santosh Landa, form grader operatorAvionics Electronics Technician Internal Medicine 11/25/21 Sales And Marketing Professional Relationship Specialty Start Date End Date Maldonado Raza MD [address] [place] [address] PCP - General Internal Medicine 03/27/12 [facility] [address] [place] [address] Pharmacist Pharmacy 07/30/19 Santosh Landa, form grader operatorAvionics Electronics Technician Internal Medicine 11/25/21 Sales And Marketing Professional Relationship Specialty Start Date End Date Maldonado Raza MD [address] [place] [address] PCP - General Internal Medicine 03/27/12 [facility] [address] [place] [address] Pharmacist Pharmacy 07/30/19 Santosh Landa, form grader operatorAvionics Electronics Technician Internal Medicine 11/25/21 Sales And Marketing Professional Relationship Specialty Start Date End Date Maldonado Raza MD [address] [place] [address] PCP - General Internal Medicine 03/27/12 [place], [facility] [address] [place] [address] Pharmacist Pharmacy 07/30/19 Santosh Landa, form grader operatorAvionics Electronics Technician Internal Medicine 11/25/21 Sales And Marketing Professional Relationship Specialty Start Date End Date Maldonado Raza MD [address] [place] [address] PCP - General Internal Medicine 03/27/12 [facility] [address] [place] [address] Pharmacist Pharmacy 07/30/19 Santosh Landa, form grader operatorAvionics Electronics Technician Internal Medicine 11/25/21 Sales And Marketing Professional Relationship Specialty Start Date End Date Maldonado Raza MD [address] [place] [address] PCP - General Internal Medicine 03/27/12 [facility] [address] [place] [address] Pharmacist Pharmacy 07/30/19 Sanotsh Landa, form grader operatorAvionics Electronics Technician Internal Medicine 11/25/21 Sales And Marketing Professional Relationship Specialty Start Date End Date Maldonado Raza MD [address] [place] [address] PCP - General Internal Medicine 03/27/12 [place], [facility] [address] [place] [address] Pharmacist Pharmacy 07/30/19 Santosh Landa, form grader operatorAvionics Electronics Technician Internal Medicine 11/25/21 Sales And Marketing Professional Relationship Specialty Start Date End Date Maldonado Raza MD [address] [place] [address] PCP - General Internal Medicine 03/27/12 [place], [facility] [address] [place] [address] Pharmacist Pharmacy 07/30/19 Santosh Landa, form grader operatorAvionics Electronics Technician Internal Medicine 11/25/21 Sales And Marketing Professional Relationship Specialty Start Date End Date Maldonado Raza MD [address] [place] [address] PCP - General Internal Medicine 03/27/12 [facility] [address] [place] [address] Pharmacist Pharmacy 07/30/19 Santosh Landa, form grader operatorAvionics Electronics Technician Internal Medicine 11/25/21 Sales And Marketing Professional Relationship Specialty Start Date End Date Maldonado Raza MD [address] [place] [address] PCP - General Internal Medicine 03/27/12 [facility] [address] [place] [address] Pharmacist Pharmacy 07/30/19 Santosh Landa, form grader operatorAvionics Electronics Technician Internal Medicine 11/25/21 Sales And Marketing Professional Relationship Specialty Start Date End Date Maldonado Raza MD [address] [place] [address] PCP - General Internal Medicine 03/27/12 [facility] [address] [place] [address] Pharmacist Pharmacy 07/30/19 Santosh Landa, form grader operatorAvionics Electronics Technician Internal Medicine 11/25/21 Sales And Marketing Professional Relationship Specialty Start Date End Date Maldonado Raza MD [address] [place] [address] PCP - General Internal Medicine 03/27/12 [facility] [address] [place] [address] Pharmacist Pharmacy 07/30/19 05/02/22 Syeda, Frost M, form grader operatorAvionics Electronics Technician Internal Medicine 11/25/21 Sales And Marketing Professional Relationship Specialty Start Date End Date Maldonado Raza MD [address] [place] [address] PCP - General Internal Medicine 03/27/12 Santosh Landa, form grader operatorAvionics Electronics Technician Internal Medicine 11/25/21 Sales And Marketing Professional Relationship Specialty Start Date End Date Maldonado Raza MD [address] [place] [address] PCP - General Internal Medicine 03/27/12 Santosh Landa, form grader operatorAvionics Electronics Technician Internal Medicine 11/25/21 Sales And Marketing Professional Relationship Specialty Start Date End Date Maldonado Raza MD [address] [place] [address] PCP - General Internal Medicine 03/27/12 Santosh Landa, form grader operatorAvionics Electronics Technician Internal Medicine 11/25/21 Sales And Marketing Professional Relationship Specialty Start Date End Date Maldonado Raza MD [address] [place] [address] PCP - General Internal Medicine 03/27/12 Santosh Landa, form grader operatorAvionics Electronics Technician Internal Medicine 11/25/21 Sales And Marketing Professional Relationship Specialty Start Date End Date Maldonado Raza MD [address] [place] [address] PCP - General Internal Medicine 03/27/12 Santosh Landa, form grader operatorAvionics Electronics Technician Internal Medicine 11/25/21 Sales And Marketing Professional Relationship Specialty Start Date End Date Maldonado Raza MD [address] [place] [address] PCP - General Internal Medicine 03/27/12 Santosh Landa, form grader operatorAvionics Electronics Technician Internal Medicine 11/25/21 Sales And Marketing Professional Relationship Specialty Start Date End Date Maldonado Raza MD [address] [place] [address] PCP - General Internal Medicine 03/27/12 Santosh Landa, form grader operatorAvionics Electronics Technician Internal Medicine 11/25/21 Sales And Marketing Professional Relationship Specialty Start Date End Date Maldonado Raza MD [address] [place] [address] PCP - General Internal Medicine 03/27/12 Santosh Landa, form grader operatorAvionics Electronics Technician Internal Medicine 11/25/21 Sales And Marketing Professional Relationship Specialty Start Date End Date Maldonado Raza MD [address] [place] [address] PCP - General Internal Medicine 03/27/12 Syeda Frost form grader operatorAvionics Electronics Technician Internal Medicine 11/25/21 Sales And Marketing Professional Relationship Specialty Start Date End Date Maldonado Raza MD [address] [place] [address] PCP - General Internal Medicine 03/27/12 Syeda Frost, form grader operatorAvionics Electronics Technician Internal Medicine 11/25/21 Sales And Marketing Professional Relationship Specialty Start Date End Date Maldonado Raza MD [address] [place] [address] PCP - General Internal Medicine 03/27/12 Syeda Frost, form grader operatorAvionics Electronics Technician Internal Medicine 11/25/21 Sales And Marketing Professional Relationship Specialty Start Date End Date Maldonado Raza MD [address] [place] [address] PCP - General Internal Medicine 03/27/12 Syeda Frost, form grader operatorAvionics Electronics Technician Internal Medicine 11/25/21 Sales And Marketing Professional Relationship Specialty Start Date End Date Maldonado Raza MD [address] [place] [address] PCP - General Internal Medicine 03/27/12 Syeda Frost, form grader operatorAvionics Electronics Technician Internal Medicine 11/25/21 Sales And Marketing Professional Relationship Specialty Start Date End Date Maldonado Raza MD [address] [place] [address] PCP - General Internal Medicine 03/27/12 Syeda Frost RN Avionics Electronics Technician Internal Medicine 11/25/21 Sales And Marketing Professional Relationship Specialty Start Date End Date Maldonado Raza MD [address] [place] [address] PCP - General Internal Medicine 03/27/12 Syeda Frost, form grader operatorAvionics Electronics Technician Internal Medicine 11/25/21 Team Status: Active Member Role Status Dates Dr. Maldonado Raza MD Family Provider Active Dr. Maldonado Raza MD Primary Care Provider Active Team Status: Inactive Member Role Status Dates Dr. Maldonado Raza MD Primary Care Provider, Refer ring Provider Active Shay CHIN, PA Attending Provider Active Team Status: Inactive Member Role Status Dates Dr. Maldonado Raza MD Primary Care Provider Active Dr. Isi Hunter DO Attending Provider, Emergency Pro vider Active Team Status: Inactive Member Role Status Dates Dr. Maldonado Raza MD Primary Care Provider Active Dr. Warren Torrez , Emergency Provider Active Sales And Marketing Professional Relationship Specialty Start Date End Date Maldonado Raza MD [address] [facility], [place] [address]47351 PCP - General Internal Medicine 03/27/12 Syeda Frost, form grader operatorAvionics Electronics Technician Internal Medicine 11/25/21 Sales And Marketing Professional Relationship Specialty Start Date End Date Maldonado Raza MD [address] [place] [address] PCP - General Internal Medicine 03/27/12 Syeda Frost, form grader operatorAvionics Electronics Technician Internal Medicine 11/25/21 Sales And Marketing Professional Relationship Specialty Start Date End Date Maldonado Raza MD [address] [facility], [place] 384881 PCP - General Internal Medicine 03/27/12 Syeda Frost, form grader operatorAvionics Electronics Technician Internal Medicine 11/25/21 Sales And Marketing Professional Relationship Specialty Start Date End Date Maldonado Raza MD [address] [place] [address] PCP - General Internal Medicine 03/27/12 Syeda Frost, form grader operatorAvionics Electronics Technician Internal Medicine 11/25/21 Sales And Marketing Professional Relationship Specialty Start Date End Date Maldonado Raza MD [address] [place] [address] PCP - General Internal Medicine 03/27/12 Syeda Frost, form grader operatorAvionics Electronics Technician Internal Medicine 11/25/21 Sales And Marketing Professional Relationship Specialty Start Date End Date Maldonado Raza MD [address] [place] [address] PCP - General Internal Medicine 03/27/12 Syeda Frost, form grader operatorAvionics Electronics Technician Internal Medicine 11/25/21 Team Status: Active Member Role Status Dates Dr. Maldonado Raza MD Primary Care Provider Active Dr. Ruben Hu MD Attending Provider Active Team Status: Inactive Member Role Status Dates Dr. Maldonado Raza MD Primary Care Provider Active Dr. Byron Day MD Attending Provider, Referring James don Active Sales And Marketing Professional Relationship Specialty Start Date End Date Maldonado Raza MD [address] [place] [address] PCP - General Internal Medicine 03/27/12 Syeda Frost, form grader operatorAvionics Electronics Technician Internal Medicine 11/25/21 Sales And Marketing Professional Relationship Specialty Start Date End Date Maldonado Raza MD [address] [place] [address] PCP - General Internal Medicine 03/27/12 Syeda Frost, form grader operatorAvionics Electronics Technician Internal Medicine 11/25/21 Sales And Marketing Professional Relationship Specialty Start Date End Date Maldonado Raza MD [address] [place], [place] 068891 PCP - General Internal Medicine 03/27/12 Syeda Frost, form grader operatorAvionics Electronics Technician Internal Medicine 11/25/21 Sales And Marketing Professional Relationship Specialty Start Date End Date Maldonado Raza MD [address] [place], [place] 048171 PCP - General Internal Medicine 03/27/12 Syeda Frost, form grader operatorAvionics Electronics Technician Internal Medicine 11/25/21 Sales And Marketing Professional Relationship Specialty Start Date End Date Maldonado Raza MD [address] [place] [address] PCP - General Internal Medicine 03/27/12 Syeda Frost, form grader operatorAvionics Electronics Technician Internal Medicine 11/25/21 Byron Day [address] [place] [address] Referring Ophthalmology 05/01/23 Sales And Marketing Professional Relationship Specialty Start Date End Date Maldonado Raza MD [address] [place] [address] PCP - General Internal Medicine 03/27/12 Syeda Frost, form grader operatorAvionics Electronics Technician Internal Medicine 11/25/21 Byron Day [address] [place], [place] 526521 Referring Ophthalmology 05/01/23 Sales And Marketing Professional Relationship Specialty Start Date End Date Maldonado Raza MD [address] [place], [place] 921791 PCP - General Internal Medicine 03/27/12 Syeda Frost, form grader operatorAvionics Electronics Technician Internal Medicine 11/25/21 Byron Day [address] [facility], [place] 628531 Referring Ophthalmology 05/01/23 Sales And Marketing Professional Relationship Specialty Start Date End Date Maldonado Raza MD [address] [facility], [place] 372261 PCP - General Internal Medicine 03/27/12 Syeda Frost, form grader operatorAvionics Electronics Technician Internal Medicine 11/25/21 Byron Day [address] [place] [address] Referring Ophthalmology 05/01/23 Sales And Marketing Professional Relationship Specialty Start Date End Date Maldonado Raza MD [address] [place] [address] PCP - General Internal Medicine 03/27/12 Syeda Frost, form grader operatorAvionics Electronics Technician Internal Medicine 11/25/21 Byron Day [address] [facility], [place] 550311 Referring Ophthalmology 05/01/23 Sales And Marketing Professional Relationship Specialty Start Date End Date Maldonado Raza MD [address] [place] [address] PCP - General Internal Medicine 03/27/12 Syeda Frost, form grader operatorAvionics Electronics Technician Internal Medicine 11/25/21 Byron Day [address] [facility], [place] 689071 Referring Ophthalmology 05/01/23 Sales And Marketing Professional Relationship Specialty Start Date End Date Maldonado Raza MD [address] [place] [address] PCP - General Internal Medicine 03/27/12 Syeda Frost, form grader operatorAvionics Electronics Technician Internal Medicine 11/25/21 Byron Day [address] [place], [place] 700081 Referring Ophthalmology 05/01/23 Mireya Gross, form grader operator Sausage Mixer 06/22/23 07/23/23 DAVITA [facility] [place], [place] [id number] 06/22/23 Sales And Marketing Professional Relationship Specialty Start Date End Date Maldonado Raza MD [address] [place], [place] 342331 PCP - General Internal Medicine 03/27/12 Syeda Frost, form grader operatorAvionics Electronics Technician Internal Medicine 11/25/21 Byron Day [address] [place], [place] 926611 Referring Ophthalmology 05/01/23 Mireya Gross, form grader operator Sausage Mixer 06/22/23 07/23/23 DAVITA [facility] [place], [place] 340234 06/22/23 Sales And Marketing Professional Relationship Specialty Start Date End Date Maldonado Raza MD [address] [place], [place] 610581 PCP - General Internal Medicine 03/27/12 Syeda Frost, form grader operatorAvionics Electronics Technician Internal Medicine 11/25/21 Byron Day [address] [place], [place] 285461 Referring Ophthalmology 05/01/23 Mireya Gross, form grader operator Sausage Mixer 06/22/23 07/23/[address] 554324 06/22/23 Sales And Marketing Professional Relationship Specialty Start Date End Date Maldonado Raza MD [address] [place], [place] 770151 PCP - General Internal Medicine 03/27/12 Syeda Frost, form grader operatorAvionics Electronics Technician Internal Medicine 11/25/21 Byron Day [address] [place], [place] 952171 Referring Ophthalmology 05/01/23 Mireya Gross form grader operator Sausage Mixer 06/22/23 07/23/[address] [address] 06/22/23 Sales And Marketing Professional Relationship Specialty Start Date End Date Maldonado Raza MD [address] [place], [place] 079211 PCP - General Internal Medicine 03/27/12 Syeda Frost, form grader operatorAvionics Electronics Technician Internal Medicine 11/25/21 Byron Day [address] [place] [address] Referring Ophthalmology 05/01/23 Mireya Gross, form grader operator Sausage Mixer 06/22/23 07/23/[address] 256974 06/22/23 Sales And Marketing Professional Relationship Specialty Start Date End Date Maldonado Raza MD [address] [place], [place] 600951 PCP - General Internal Medicine 03/27/12 Syeda Frost, form grader operatorAvionics Electronics Technician Internal Medicine 11/25/21 Sales And Marketing Professional Relationship Specialty Start Date End Date Maldonado Raza MD [address] [place], [place] 477861 PCP - General Internal Medicine 03/27/12 Syeda Frost, form grader operatorAvionics Electronics Technician Internal Medicine 11/25/21 Byron Day [address] [place], [place] 740781 Referring Ophthalmology 05/01/23 Mireya Gross, form grader operator Sausage Mixer 06/22/23 07/23/23 DAVITA [facility] [place], [place] 009054 06/22/23 Sales And Marketing Professional Relationship Specialty Start Date End Date Maldonado Raza MD [address] [place] [address] PCP - General Internal Medicine 03/27/12 Syeda Frost RN Avionics Electronics Technician Internal Medicine 11/25/21 Byron Day [address] [place], [place] 166391 Referring Ophthalmology 05/01/23 Mireya Gross, form grader operator Sausage Mixer 06/22/23 07/23/23 DAVITA [address] [place], [place] [id number] 06/22/23 Sales And Marketing Professional Relationship Specialty Start Date End Date Maldonado Raza MD [address] [place], [place] 639081 PCP - General Internal Medicine 03/27/12 Syeda Frost, form grader operatorAvionics Electronics Technician Internal Medicine 11/25/21 Byron Day [address] [place], [place] 146641 Referring Ophthalmology 05/01/[address] [address] 06/22/23 Sales And Marketing Professional Relationship Specialty Start Date End Date Maldonado Raza MD [address] [place], [place] 408161 PCP - General Internal Medicine 09/19/23 Sales And Marketing Professional Relationship Specialty Start Date End Date Maldonado Raza MD [address] [place], [place] 545031 PCP - General Internal Medicine 03/27/12 Syeda Frost, form grader operatorAvionics Electronics Technician Internal Medicine 11/25/21 Byron Day [address] [place], [place] 473281 Referring Ophthalmology 05/01/[address] [address] 06/22/23 Sales And Marketing Professional Relationship Specialty Start Date End Date Maldonado Raza MD [address] [place], [place] 495571 PCP - General Internal Medicine 03/27/12 Syeda Frost, form grader operatorAvionics Electronics Technician Internal Medicine 11/25/21 Byron Day [address] [place], [place] 01353691 Referring Ophthalmology 05/01/[address] 100424 06/22/23 Sales And Marketing Professional Relationship Specialty Start Date End Date Maldonado Raza MD [address] [facility], [place] 444031 PCP - General Internal Medicine 03/27/12 Syeda Frost, form grader operatorAvionics Electronics Technician Internal Medicine 11/25/21 Byron Day [address] [place], [place] 647451 Referring Ophthalmology 05/01/[address] 230674 06/22/23 Sales And Marketing Professional Relationship Specialty Start Date End Date Maldonado Raza MD [address] [place] [address] PCP - General Internal Medicine 03/27/12 Syeda Frost, form grader operatorAvionics Electronics Technician Internal Medicine 11/25/21 Byron Day [address] [place], [place] 990011 Referring Ophthalmology 05/01/[address] 120764 06/22/23 Sales And Marketing Professional Relationship Specialty Start Date End Date Maldonado Raza MD [address] [place], [place] 320141 PCP - General Internal Medicine 03/27/12 Syeda Frost, form grader operatorAvionics Electronics Technician Internal Medicine 11/25/21 Byron Day [address] [place], [place] 798161 Referring Ophthalmology 05/01/[address] [address] 06/22/23 Sales And Marketing Professional Relationship Specialty Start Date End Date Maldonado Raza MD [address] [facility], [place] 502261 PCP - General Internal Medicine 03/27/12 Syeda Frost, form grader operatorAvionics Electronics Technician Internal Medicine 11/25/21 Byron Day [address] [place], [place] 334011 Referring Ophthalmology 05/01/[address] 640694 06/22/23 Sales And Marketing Professional Relationship Specialty Start Date End Date Maldonado Raza MD [address] [place] [address] PCP - General Internal Medicine 03/27/12 Syeda Frost, form grader operatorAvionics Electronics Technician Internal Medicine 11/25/21 Byron Day [address] [place], [place] 853711 Referring Ophthalmology 05/01/[address] 804214 06/22/23 Sales And Marketing Professional Relationship Specialty Start Date End Date Maldonado Raza MD [address] [place], [place] 028801 PCP - General Internal Medicine 03/27/12 Syeda Frost, form grader operatorAvionics Electronics Technician Internal Medicine 11/25/21 Byron Day [address] [place], [place] 292251 Referring Ophthalmology 05/01/[address] 125174 06/22/23 Sales And Marketing Professional Relationship Specialty Start Date End Date Maldonado Raza MD [address] [facility], [place] 217901 PCP - General Internal Medicine 03/27/12 Syeda Frost, form grader operatorAvionics Electronics Technician Internal Medicine 11/25/21 Byron Day [address] [place], [place] 500731 Referring Ophthalmology 05/01/[address] 015124 06/22/23 Sales And Marketing Professional Relationship Specialty Start Date End Date Maldonado Raza MD [address] [place], [place] 377751 PCP - General Internal Medicine 03/27/12 Syeda Frost, form grader operatorAvionics Electronics Technician Internal Medicine 11/25/21 Byron Day [address] [place], [place] 771641 Referring Ophthalmology 05/01/[address] 961974 06/22/23 Sales And Marketing Professional Relationship Specialty Start Date End Date Maldonado Raza MD [address] [place], [place] 859021 PCP - General Internal Medicine 03/27/12 Syeda Frost, form grader operatorAvionics Electronics Technician Internal Medicine 11/25/21 Byron Day [address] [place], [place] 549161 Referring Ophthalmology 05/01/[address] 752074 06/22/23 Sales And Marketing Professional Relationship Specialty Start Date End Date Maldonado Raza MD [address] [facility], [place] 869971 PCP - General Internal Medicine 03/27/12 Syeda Frost, form grader operatorAvionics Electronics Technician Internal Medicine 11/25/21 Byron Day [address] [place], [place] 397311 Referring Ophthalmology 05/01/[address] 901284 06/22/23 Sales And Marketing Professional Relationship Specialty Start Date End Date Maldonado Raza MD [address] [place], [place] 973101 PCP - General Internal Medicine 03/27/12 Syeda Frost, form grader operatorAvionics Electronics Technician Internal Medicine 11/25/21 Byron Day [address] [place], [place] 081021 Referring Ophthalmology 05/01/[address] 820884 06/22/23 Sales And Marketing Professional Relationship Specialty Start Date End Date Maldonado Raza MD [address] [place], [place] 988191 PCP - General Internal Medicine 03/27/12 Syeda Frost, form grader operatorAvionics Electronics Technician Internal Medicine 11/25/21 Byron Day [address] [place], [place] 081201 Referring Ophthalmology 05/01/[address] 757494 06/22/23 Sales And Marketing Professional Relationship Specialty Start Date End Date Maldonado Raza MD [address] [place] [address] PCP - General Internal Medicine 03/27/12 Byron Day [address] [place] [address] Referring Ophthalmology 05/01/23 Asuncion Rossi, form grader operatorAvionics Electronics Technician 04/26/[address] [address] 06/22/23 Sales And Marketing Professional Relationship Specialty Start Date End Date Maldonado Raza MD [address] [place] [address] PCP - General Internal Medicine 03/27/12 Byron Day [address] [place] [address] Referring Ophthalmology 05/01/23 Asuncion Rossi, form grader operatorAvionics Electronics Technician 04/26/[address] 715324 06/22/23 Sales And Marketing Professional Relationship Specialty Start Date End Date Maldonado Raza MD [address] [place] [address] PCP - General Internal Medicine 03/27/12 Byron Day [address] [place], [place] 143801 Referring Ophthalmology 05/01/23 Asuncion Rossi, form grader operatorAvionics Electronics Technician 04/26/[address] [address] 06/22/23 Sales And Marketing Professional Relationship Specialty Start Date End Date Maldonado Raza MD [address] [place] [address] PCP - General Internal Medicine 03/27/12 Byron Day [address] [place] [address] Referring Ophthalmology 05/01/23 Asuncion Rossi, form grader operatorAvionics Electronics Technician 04/26/[address] [address] 06/22/23 Sales And Marketing Professional Relationship Specialty Start Date End Date Maldonado Raza MD [address] [place] [address] PCP - General Internal Medicine 03/27/12 Byron Day [facility] [place] [address] Referring Ophthalmology 05/01/23 Asuncion Rossi, form grader operatorAvionics Electronics Technician 04/26/[address] [address] 06/22/23 Sales And Marketing Professional Relationship Specialty Start Date End Date Maldonado Raza MD [address] [place] [address] PCP - General Internal Medicine 03/27/12 Byron Day MD [address] [place], [place] 183621 Referring Ophthalmology 05/01/23 Asuncion Rossi, form grader operatorAvionics Electronics Technician 04/26/[address] [address] 06/22/23 Sales And Marketing Professional Relationship Specialty Start Date End Date Maldonado Raza MD [address] [place] [address] PCP - General Internal Medicine 03/27/12 Byron Day MD [address] [place] [address] Referring Ophthalmology 05/01/23 Asuncion Rossi, form grader operatorAvionics Electronics Technician 04/26/[address] [address] 06/22/23 Sales And Marketing Professional Relationship Specialty Start Date End Date Maldonado Raza MD [address] [place] [address] PCP - General Internal Medicine 03/27/12 Syeda Frost RN Avionics Electronics Technician Internal Medicine 11/25/21 04/25/24 Byron Day MD [address] [place], [place] 975291 Referring Ophthalmology 05/01/[address] [address] 06/22/23 Sales And Marketing Professional Relationship Specialty Start Date End Date Maldonado Raza MD [address] [place], [place] 055821 PCP - General Internal Medicine 03/27/12 Byron Day MD [address] [place], [place] 938141 Referring Ophthalmology 05/01/23 Asuncion Rossi, form grader operatorAvionics Electronics Technician 04/26/[address] [address] 06/22/23 Sales And Marketing Professional Relationship Specialty Start Date End Date Maldonado Raza MD [address] [place] [address] PCP - General Internal Medicine 03/27/12 Byron Day MD [address] [place] [address] Referring Ophthalmology 05/01/23 Asuncion Rossi, form grader operatorAvionics Electronics Technician 04/26/[address] [address] 06/22/23 Sales And Marketing Professional Relationship Specialty Start Date End Date Maldonado Raza MD [address] [place] [address] PCP - General Internal Medicine 03/27/12 Byron Day MD [facility] [place] [address] Referring Ophthalmology 05/01/23 Asuncion Rossi, form grader operatorAvionics Electronics Technician 04/26/[address] [id number] 06/22/23 Sales And Marketing Professional Relationship Specialty Start Date End Date Maldonado Raza MD [address] [place] [address] PCP - General Internal Medicine 03/27/12 Byron Day MD [address] [place], [place] 542761 Referring Ophthalmology 05/01/23 Asuncion Rossi, form grader operatorAvionics Electronics Technician 04/26/[address] [address] 06/22/23 Sales And Marketing Professional Relationship Specialty Start Date End Date Maldonado Raza MD [address] [place], [place] 219971 PCP - General Internal Medicine 03/27/12 Byron Day MD [address] [place], [place] 733031 Referring Ophthalmology 05/01/23 Asuncion Rossi, form grader operatorAvionics Electronics Technician 04/26/[address] [id number] 06/22/23 Sales And Marketing Professional Relationship Specialty Start Date End Date Maldonado Raza MD [address] [place] [address] PCP - General Internal Medicine 03/27/12 Byron Day MD [address] [place], [place] 626601 Referring Ophthalmology 05/01/23 Asuncion Rossi, form grader operatorAvionics Electronics Technician 04/26/[address] [address] 06/22/23 Sales And Marketing Professional Relationship Specialty Start Date End Date Maldonado Raza MD [address] [place], [place] 326311 PCP - General Internal Medicine 09/19/23 Sales And Marketing Professional Relationship Specialty Start Date End Date Maldonado Raza MD [address] [place], [place] 297191 PCP - General Internal Medicine 03/27/12 Byron Day MD [address] [place], [place] 951761 Referring Ophthalmology 05/01/23 Asuncion Rossi, form grader operatorAvionics Electronics Technician 04/26/24 MICHELLEITA [address] [place] [address] 06/22/23 Sales And Marketing Professional Relationship Specialty Start Date End Date Maldonado Raza MD [address] [place], [place] 035581 PCP - General Internal Medicine 09/19/23 Sales And Marketing Professional Relationship Specialty Start Date End Date Maldonado Raza MD [address] [place], [place] 569531 PCP - General Internal Medicine 09/19/23 Sales And Marketing Professional Relationship Specialty Start Date End Date Maldonado Raza MD [address] [place], [place] 567601 PCP - General Internal Medicine 09/19/23 Sales And Marketing Professional Relationship Specialty Start Date End Date Maldonado Raza MD [address] [place], [place] 830771 PCP - General Internal Medicine 03/27/12 Byron Day MD [address] [place] [address] Referring Ophthalmology 05/01/23 Asuncion Rossi, form grader operatorAvionics Electronics Technician 04/26/24 AWILDA [address] [place] [address] 06/22/23 Sales And Marketing Professional Relationship Specialty Start Date End Date Maldonado Raza MD [address] [place] [address] PCP - General Internal Medicine 03/27/12 Byron Day MD [address] [facility] [place] [address] Referring Ophthalmology 05/01/23 Asuncion Rossi, form grader operatorAvionics Electronics Technician 04/26/24 Ifeoma Del Cid, HAZARDOUS MATERIALS HANDLER.HIGH FREQUENCY MILL OPERATOR [address] [place] [address] Rug Sample Beveler Internal Medicine 08/12/[address] [address] 06/22/23 Sales And Marketing Professional Relationship Specialty Start Date End Date Maldonado Raza MD [address] [place] [address] PCP - General Internal Medicine 09/19/23 Sales And Marketing Professional Relationship Specialty Start Date End Date Maldonado aRza MD [address] [place] [address] PCP - General Internal Medicine 09/19/23 Sales And Marketing Professional Relationship Specialty Start Date End Date Maldonado Raza MD [address] [place] [address] PCP - General Internal Medicine 09/19/23 Sales And Marketing Professional Relationship Specialty Start Date End Date Maldonado Raza MD [address] [place] [address] PCP - General Internal Medicine 09/19/23 Sales And Marketing Professional Relationship Specialty Start Date End Date Maldonado Rzaa MD [address] [place] [address] PCP - General Internal Medicine 09/19/23 Sales And Marketing Professional Relationship Specialty Start Date End Date Maldonado Raza MD [address] [facility], [place] 977261 PCP - General Internal Medicine 03/27/12 Byron Day MD [address] [facility] [place], [place] 644291 Referring Ophthalmology 05/01/23 Asuncion Rossi, form grader operatorAvionics Electronics Technician 04/26/24 Ifeoma Del Cid, HAZARDOUS MATERIALS HANDLER.HIGH FREQUENCY MILL OPERATOR [address] [place] [address] Rug Sample Beveler Internal Medicine 08/12/[address] [place] [id number] 06/22/23 Sales And Marketing Professional Relationship Specialty Start Date End Date Maldonado Raza MD [address] [place] [address] PCP - General Internal Medicine 03/27/12 Byron Day MD [address] [facility] [place] [address] Referring Ophthalmology 05/01/23 Ifeoma Del Cid, HAZARDOUS MATERIALS HANDLER.HIGH FREQUENCY MILL OPERATOR [address] [place] [address] Rug Sample Beveler Internal Medicine 08/12/[address] [place] [address] 06/22/23 Sales And Marketing Professional Relationship Specialty Start Date End Date Maldonado Raza MD [address] [place], [place] 704631 PCP - General Internal Medicine 09/19/23 Sales And Marketing Professional Relationship Specialty Start Date End Date Maldonado Raza MD [address] [place] [address] PCP - General Internal Medicine 03/27/12 Byron Day MD [address] [facility] [place] [address] Referring Ophthalmology 05/01/23 Ifeoma Del Cid, HAZARDOUS MATERIALS HANDLER.HIGH FREQUENCY MILL OPERATOR [address] [place] [address] Rug Sample Beveler Internal Medicine 08/12/[address] [id number] 06/22/23 Sales And Marketing Professional Relationship Specialty Start Date End Date Maldonado Raza MD [address] [place] [address] PCP - General Internal Medicine 03/27/12 Byron Day MD [address] [facility] [place] [address] Referring Ophthalmology 05/01/23 Ifeoma Del Cid, HAZARDOUS MATERIALS HANDLER.HIGH FREQUENCY MILL OPERATOR [address] [place] [address] Rug Sample Beveler Internal Medicine 08/12/[address] 085124 06/22/23 Sales And Marketing Professional Relationship Specialty Start Date End Date Maldonado Raza MD [address] [place] [address] PCP - General Internal Medicine 03/27/12 Byron Day MD [address] [place] [address] Referring Ophthalmology 05/01/23 Ifeoma Del Cid, HAZARDOUS MATERIALS HANDLER.HIGH FREQUENCY MILL OPERATOR [address] [place] [address] Rug Sample Beveler Internal Medicine 08/12/[address] [address] 06/22/23 Sales And Marketing Professional Relationship Specialty Start Date End Date Maldonado Raza MD [address] [place] [address] PCP - General Internal Medicine 03/27/12 Byron Day MD [address] [place] [address] Referring Ophthalmology 05/01/23 Ifeoma Del Cid, HAZARDOUS MATERIALS HANDLER.HIGH FREQUENCY MILL OPERATOR [address] [place] [address] Rug Sample Beveler Internal Medicine 08/12/[address] 892584 06/22/23 Sales And Marketing Professional Relationship Specialty Start Date End Date Maldonado Raza MD [address] [place] [address] PCP - General Internal Medicine 03/27/12 Byron Day MD [address] [place] [address] Referring Ophthalmology 05/01/23 Ifeoma Del Cid, HAZARDOUS MATERIALS HANDLER.HIGH FREQUENCY MILL OPERATOR [address] [place], [place] 502261 Rug Sample Beveler Internal Medicine 08/12/[address] [address] 06/22/23 Sales And Marketing Professional Relationship Specialty Start Date End Date Maldonado Raza MD [address] [place] [address] PCP - General Internal Medicine 03/27/12 Byron Day MD [address] [place] [address] Referring Ophthalmology 05/01/23 Ifeoma Del Cid, HAZARDOUS MATERIALS HANDLER.HIGH FREQUENCY MILL OPERATOR [address] [place] [address] Rug Sample Beveler Internal Medicine 08/12/[address] 690774 06/22/23 Sales And Marketing Professional Relationship Specialty Start Date End Date Maldonado Raza MD [address] [place] [address] PCP - General Internal Medicine 03/27/12 Byron Day MD [address] [place] [address] Referring Ophthalmology 05/01/23 Ifeoma Del Cid, HAZARDOUS MATERIALS HANDLER.HIGH FREQUENCY MILL OPERATOR [address] [place] [address] Rug Sample Beveler Internal Medicine 08/12/[address] 871744 06/22/23 Sales And Marketing Professional Relationship Specialty Start Date End Date Maldonado Raza MD [address] [place] [address] PCP - General Internal Medicine 03/27/12 Byron Day MD [address] [place] [address] Referring Ophthalmology 05/01/23 Ifeoma Del Cid, HAZARDOUS MATERIALS HANDLER.HIGH FREQUENCY MILL OPERATOR [address] [place] [address] Rug Sample Beveler Internal Medicine 08/12/[address] 263394 06/22/23 Sales And Marketing Professional Relationship Specialty Start Date End Date Maldonado Raza MD [address] [place] [address] PCP - General Internal Medicine 03/27/12 Byron Day MD [address] [place], [place] 119141 Referring Ophthalmology 05/01/23 Ifeoma Del Cid, HAZARDOUS MATERIALS HANDLER.HIGH FREQUENCY MILL OPERATOR [address] [place] [address] Rug Sample Beveler Internal Medicine 08/12/[address] 578714 06/22/23 Sales And Marketing Professional Relationship Specialty Start Date End Date Maldonado Raza MD [address] [facility] [place] [address] PCP - General Internal Medicine 03/27/12 Byron Day MD [address] [facility] [place] [address] Referring Ophthalmology 05/01/23 Ifeoma Del Cid, HAZARDOUS MATERIALS HANDLER.HIGH FREQUENCY MILL OPERATOR [address] [place], [place] 904611 Rug Sample Beveler Internal Medicine 08/12/[address] [id number] 06/22/23 Sales And Marketing Professional Relationship Specialty Start Date End Date Maldonado Raza MD [address] [place] [address] PCP - General Internal Medicine 03/27/12 Byron Day MD [address] [place], [place] 787411 Referring Ophthalmology 05/01/23 Ifeoma Del Cid, HAZARDOUS MATERIALS HANDLER.HIGH FREQUENCY MILL OPERATOR [address] [place], [place] 458031 Rug Sample Beveler Internal Medicine 08/12/[address] 100044 06/22/23 Team Status: Active Member Role Status Dates Dr. Maldonado Raza MD Primary Care Provider Active Team Status: Inactive Member Role Status Dates Dr. Maldonado Raza MD Primary Care Provider Active Start: December 31, 2024 End: December 31, 2024 Dr. Maldonado Raza MD Referring Provider Active Start: December 31, 2024 End: December 31, 2024 Shay CHIN PA Attending Provider Active Sta rt: December 31, 2024 End: December 31, 2024 Team Status: Active Member Role Status Dates Dr. Maldonado Raza MD Primary Care Provider Active Start: January 28, 2025 Dr. Dave Coronado DO Emergency Provider Activ e Start: January 28, 2025 Dr. aKde Ricketts MD Admit Provider Active Star t: January 28, 2025 Dr. Kade Ricketts MD Attending Provider Active Start: January 28, 2025 Team Status: Inactive Member Role Status Dates Dr. Maldonado Raza MD Primary Care Provider Active Start: January 28, 2025 End: January 30, 2025 Dr. Dave Coronado , DO Emergency Provider Activ e Start: January 28, 2025 End: January 30, 2025 Dr. Kade Ricketts MD Admit Provider Active Star t: January 28, 2025 End: January 30, 2025 Dr. Kade Ricketts MD Attending Provider Active Start: January 28, 2025 End: January 30, 2025 Dr. South Vasques MD Other Provider Active Start: January 28, 2025 End: January 30, 2025 Team Status: Active Member Role Status Dates Dr. Maldonado Raza MD Primary Care Provider Active Start: January 28, 2025 Dr. Lidia Garcia MD Attending Provider Active Start: January 28, 2025 Team Status: Active Member Role Status Dates Dr. Maldonado Raza MD Primary Care Provider Active Start: January 29, 2025 Dr. Dave Coronado , DO Emergency Provider Activ e Start: January 29, 2025 Dr. Kade Ricketts MD Admit Provider Active Star t: January 29, 2025 Dr. Kade Ricketts MD Attending Provider Active Start: January 29, 2025 Dr. Kade Ricketts MD Other Provider Active Star t: January 29, 2025 Dr. South Vasques MD Other Provider Active Start: January 29, 2025 Team Status: Active Member Role Status Dates Dr. Maldonado Raza MD Primary Care Provider Active Start: January 30, 2025 Dr. Dave Coronado , DO Emergency Provider Activ e Start: January 30, 2025 Dr. Kade Ricketts MD Admit Provider Active Star t: January 30, 2025 Dr. Kade Ricketts MD Attending Provider Active Start: January 30, 2025 Dr. Kade Ricketts MD Other Provider Active Star t: January 30, 2025 Dr. South Vasques MD Other Provider Active Start: January 30, 2025 Sales And Marketing Professional Relationship Specialty Start Date End Date Maldonado Raza MD [address] [facility] [place], [place] [address] PCP - General Internal Medicine 03/27/12 Byron Day MD [address] [facility] [place], [place] 933541 Referring Ophthalmology 05/01/23 Ifeoma Del Cid, HAZARDOUS MATERIALS HANDLER.HIGH FREQUENCY MILL OPERATOR [address] [place] [address] Rug Sample Beveler Internal Medicine 08/12/[address] 213704 06/22/23 Sales And Marketing Professional Relationship Specialty Start Date End Date Maldonado Raza MD [address] [place] [address] PCP - General Internal Medicine 03/27/12 Byron Day MD [address] [place] [place] [address] Referring Ophthalmology 05/01/23 Ifeoma Del Cid, HAZARDOUS MATERIALS HANDLER.HIGH FREQUENCY MILL OPERATOR [address] [place] [address] Rug Sample Beveler Internal Medicine 08/12/[address] 237874 06/22/23 Sales And Marketing Professional Relationship Specialty Start Date End Date Maldonado Raza MD [address] [place] [address] PCP - General Internal Medicine 09/19/23 Sales And Marketing Professional Relationship Specialty Start Date End Date Maldonado Raza MD [address] [place], [place] 416201 PCP - General Internal Medicine 03/27/12 Byron Day MD [address] [place], [place] 847351 Referring Ophthalmology 05/01/23 Ifeoma Del Cid, HAZARDOUS MATERIALS HANDLER.[facility] [address] [place] [address] Rug Sample Beveler Internal Medicine 08/12/[address] [address] 06/22/23 Goals (unrecognized section and content) Goals may be documented in a n alternate sectionGoals may be documented in an alternate section No data available for this sectionGoals may be documented in an alternate sectionGoals may be documented in an alternate section FOR RECORDS PERTAINING TO PATIENTS WHO ARE OR HAVE BEEN ENROLLED IN A CHEMICAL DEPENDENCY/SUBSTANCEABUSE PROGRAM, SOME INFORMATION MAY BE OMITTED. This clinical summary was aggregated from multiple sources. Caution should be exercised in using it in the provision of clinical care. This summary normalizes information from multiple sources, and as a consequence, information in this document may materially change the coding, format and clinical context of patient data. In addition, data may be omitted in some cases. CLINICAL DECISIONS SHOULD BE BASED ON THE PRIMARY CLINICAL RECORDS. [facility] [email or web address] [facility]. provides no warranty or guarantee of the accuracy or completeness of information in this document.
[2025-05-17 22:50] LABS: AST(SGOT) 49 U/L (<=31); Alanine Aminotransfer ALT/SGPT 34 U/L (<=34); Albumin, Serum 4.5 g/dL (3.4-4.8); Alkaline Phosphatase 226 U/L (35-104); Anion Gap 16 (5-15); BUN 31 mg/dL (4-19); BUN/Creat Ratio 5.1 RATIO (10-20); Calcium,Total 10.2 mg/dL (7.6-11.0); Carbon Dioxide 28.6 mmol/L (21.0-32.0); Chloride 95 mmol/L (98-108); Estimated Creatinine Clearance 7.77 ml/min (50-250); Globulin 3.4 g/dL (2.2-4.2); Glucose 121 mg/dL (70-99); Lipase 25 U/L (13-75); Potassium 4.4 mmol/L (3.3-5.1)
[2025-05-17 23:39] VITALS: BP 143/50; PULSE 70; RESP 14; O2SAT 95
[2025-05-18 00:02] VITALS: BP 146/50; PULSE 72; RESP 18; TEMP 36.7; O2SAT 95
--- NOTE | 2025-05-18 00:05 | ED.RN ---
pt stated that she will not be able to get her prescription until Monday,asked her if she wanted the medication to be transferred to another pharmacy or what she would like for us to do.Pt laughed and said nothing.
--- NOTE | 2025-05-18 00:09 | ED.RN ---
checked on pt to reiterate that we can send her prescriptions to another pharmacy if that is the issue, but pt had already left.
== END 2025-05-18 00:10 | disposition home or self-care (01) ==
PROVIDERS: Emergency Provider Emergency Medicine; PCP Internal Medicine; Visit Provider Emergency Medicine
DX: R11.2 Nausea with vomiting, unspecified (principal); I13.2 Hypertensive heart and chronic kidney disease with heart failure and with stage 5 chronic kidney disease, or end stage renal disease; N18.6 End stage renal disease; I50.9 Heart failure, unspecified; E11.22 Type 2 diabetes mellitus with diabetic chronic kidney disease; Z79.4 Long term (current) use of insulin; R10.9 Unspecified abdominal pain; K43.2 Incisional hernia without obstruction or gangrene; D64.9 Anemia, unspecified; K21.9 Gastro-esophageal reflux disease without esophagitis; E03.9 Hypothyroidism, unspecified; Z99.2 Dependence on renal dialysis; Z90.49 Acquired absence of other specified parts of digestive tract; Z86.73 Personal history of transient ischemic attack (TIA), and cerebral infarction without residual deficits; Z87.19 Personal history of other diseases of the digestive system; Z79.82 Long term (current) use of aspirin; Z79.890 Hormone replacement therapy; Z79.899 Other long term (current) drug therapy; Z87.891 Personal history of nicotine dependence
CPT/HCPCS: 74176; 80053; 83690; 85025; 96374; 96375; 96376; 99284; A4216; J2405

== ENCOUNTER 2025-05-19 04:02 | Observation (INO) | payer MEDICARE, MEDICAID, SELFPAY ==
[2025-05-19] VITALS (25 sets, daily range): BP systolic 114–168; BP diastolic 44–67; PULSE 58–74; RESP 10–18; TEMP 36.5–36.8; O2SAT 74–100; BMI 23.1; BMI 22.7; BMI 22.8; BMI 21.4
[2025-05-19 04:44] LABS: Hematocrit 31.3 % (37-47); Hemoglobin 10.2 g/dL (12.0-15.0); Immature Granulocytes Count 0.000 X10^3/uL (0.0-0.0); Mean Corp Hgb Conc 32.6 g/dL (32-36); Mean Corpuscular Volume 91.8 fL (81-99); Mean Platelet Vol. 10.1 fl (6.2-12.0); NRBC Flagged by Analyzer 0 % (0-5); Platelet Count 163 K/mm3 (150-450); RBC Distribution Width CV 13.0 % (11.6-14.6); RBC Distribution Width SD 43.5 fl (35.1-43.9); Red Blood Count 3.41 M/mm3 (4.2-5.4); White Blood Count 5.2 K/mm3 (4.4-11.0)
--- OUTSIDE RECORDS SUMMARY | 2025-05-19 04:55 | XMS RPT_ITS | CCD ---
Author Organization [facility] Providers Care Library Technical Assistant Name Role Phone ASFOURAJULIUSHAD Y Unavailable Unavailable JAVIER, HÉCTOR T Unavailable Unavailable Javier, Héctor T Unavailable Unavailable Maldonado Raza. Unavailable Unavailable Javier, Héctor T Unavailable Unavailable Javier, Héctor T Unavailable Unavailable Asfoura, Jehad Y Unavailable Unavailable Asfoura, Jehad Y Unavailable Unavailable Maldonado Raza H. Unavailable Unavailable Javier, Héctor T Unavailable Unavailable Maldonado Raza. Unavailable Unavailable Javier, Héctor T Unavailable Unavailable Maldonado Raza Unavailable Unavailable Javier, Héctor T Unavailable Unavailable Joanne, Anderson M Unavailable Unavailable Joanne, Anderson M Unavailable Unavailable Maldonado Raza. Unavailable Unavailable Javier, Héctor T Unavailable Unavailable Maldonado Raza Unavailable Unavailable Maldonado Raza MD Primary Care Provider [facility], Keti Unavailable Syeda LOPEZ, Santosh Perez Unavailable Unavailabl e None, No PCP Unavailable Unavailable Maldonado Raza MD Primary Care Provider [facility], Keti Unavailable Santosh Landa RN Unavailable Unavailabl e [place] [facility], Keti Unavailable Dr. Maldonado Raza Primary Care Provider Dr. Maldonado Raza Referring Provider ELSY Henao Attending Provider Maldonado Raza MD Primary Care Provider Syeda Frost RN Unavailable Unavailabl e Dr. Maldonado Raza Primary Care Provider Dr. Maldonado Raza Referring Provider ELSY Henao Attending Provider LUZ MARINA VILLANUEVA, DR OKEEFE Primary Care Physician [phone] LUZ MARINA VILLANUEVA, DR OKEEFE Primary Care Unavaila ble YOUSUF CROW DO Attending Unavaila ble AGGIE RODRIGUEZ Unavailable Dr. Maldonado Raza Primary Care Provider Dr. Ruben Hu Attending Provider Santosh LOPEZ, Syeda Perez Unavailable Unavailkrystin e Byron Day Unavailable NIKHIL DINERO Attending Unavailable LISA HEREDIA Referring Unavailable MALDONADO RAZA Primary Care Unavailable Ginny LOPEZ, Mireya Urena Unavailable Unavailable Unavailable Primary Care Provider Unavailkrystin Raza MD, Maldonado Valiente Primary Care Provider Luz Marina VILLANUEVA, Maldonado Freeman Primary Care Provider RAUL DUQUE Admitting Unavailable RAUL DUQUE Attending Unavailable MALDONADO RAZA Primary Care Unavailable VITA ROGELN Admitting Unavailable VITA ROGELN Attending Unavailable MALDONADO RAZA Primary Care Unavailable MALDONADO RAZA Primary Care Unavailable PRESTON, MILAGRO Admitting Unavailable PRISCILLA BRUCEA Attending Unavailable OTONIEL GUY Consulting UnavailFELICIA Alejandro Referring Unavailable MALDONADO RAZA Primary Care Unavailable JUAN F MEDARDO Referring Unavailable MALDONADO RAZA Primary Care Unavailable FELICIA AVENDANO Admitting Unavailable FELICIA AVENDANO Attending Unavailable MALDONADO RAZA Primary Care Unavailable Flo LOPEZ, Asuncion Unavailable Unavailable ROLY FONTANA Referring Unavailable MALDONADO RAZA Primary Care Unavailable ROLY FONTANA Referring Unavailable MALDONADO RAZA Primary Care Unavailable Byron Day MD Unavailable Santosh LOPEZ, Syeda Perez Unavailable Unavailabl e Maria Eugenia DIRECTOR OF PHYSICAL EDUCATION.SCREW MACHINE OPERATOR SWISS TYPE, Ifeoma M Unavailable MILADYS SHELTON MD Attending Unava MILADYS Nayak MD Primary Care Unava MILADYS Nayak MD Admitting Unava ilMALDONADO Keane MD Consulting Unavailable PROVIDER, UNKNOWN Consulting Unavailable Luz Marina VILLANUEVA, Dr. Okeefe Primary Care Provider Luz Marina VILLANUEVA, Dr. [place]kee[place] Referring Provider Shay Henao Attending Provider [facility] , Dr. Acosta Emergency Provider Jamarcus VILLANUEVA, Dr. Lemus Admit Provider Unavailable Jamarcus VILLANUEVA, Dr. Lemus Attending Provider Unavaila cinthia Vasques MD, Dr. Dia Other Provider Jose VILLANUEVA, Dr. Murillo Attending Provider Jamarcus VILLANUEVA, Dr. Lemus Other Provider Unavailable [place] Vasques Consulting Unavailable Luz Marina, Maldonado Primary Care Unavailable Kade Ricketts Attending Unavailable Kade Ricketts Admitting Unavailable Maldonado Raza Primary Care Unavailable Maldonado Raza Referring Unavailable Shay Henao Attending Unavailable Lidia Garcia Attending Unavailable Luz Marina, Maldonado Primary Care Unavailable Luz Marina, Maldonado Primary Care Unavailable Kade Ricketts Consulting Unavailable Kade Ricketts Attending Unavailable Kade Ricketts Admitting Unavailable [place] Vasques Consulting Unavailable MANDIE YOUNGER Attending Unavailable LUZ MARINA, SHARRON Primary Care Unavailable FER DURON Attending Unavailable LUZ MARINA, SHARRON Primary Care Unavailable RAZA, MALDONADO VALIENTE Primary Care Unavailable ROLY FONTANA Referring Unavailable LUZ MARINA, MALDONADO VALIENTE Primary Care Unavailable RAZA, MALDONADO VALIENTE Primary Care Unavailable KADE JONES Attending Unavailable ROLY FONTANA Referring Unavailable LUZ MARINA, MALDONADO VALIENTE Primary Care Unavailable MURTAZA CASTELLON Attending Unavailable LUZ MARINA, MALDONADO VALIENTE Primary Care Unavailable MURTAZA CASTELLON Referring Unavailable RAZA, MALDONADO VALIENTE Primary Care Unavailable ROLY FONTANA Referring Unavailable LUZ MARINA, MALDONADO VALIENTE Primary Care Unavailable RAZA, MALDONADO MOLINAZON Primary Care Unavailable CANDE MURTAZA L Referring Unavailable RAZA, MALDONADO MOLINAZON Primary Care Unavailable RAZA, MALDONADO CYNDI JESSEZON Primary Care Unavailable MARIA EUGENIA, IFEOMA M Referring Unavailable RAZA, MALDONADO Primary Care Unavailable MARIA EUGENIA, IFEOMA M Referring Unavailable RAZA, MALDONADO Primary Care Unavailable [...] MALDONADO Primary Care Unavailable IFEOMA DEL CID M Referring Unavailable RAZA, MALDONADO Primary Care Unavailable Raza Dr. Maldonado VILLANUEVA Primary Care Provider Dr. Lidia Garcia MD Attending Provider Dr. Donald Ruiz DO Emergency Provider Allergies Allergy Classification Reported Allergen(s) Allergy Type Date of Onset Reaction(s) Facility (20 sources) Chlorhexidine; Translations: [CHLORHEXIDINE] Drug Allergy 9 Rash, [facility] (20 sources) Codeine; Translations: [codeine] Drug Allergy 7 GI Upset, [facility] (20 sources) Latex; Translations: [LATEX] Drug Allergy 2 Hives, Rash, Unknown [facility] (20 sources) Penicillins; Translations: [PENICILLINS] Propensity to adverse reactions 7 Swelling [facility] (20 sources) Penicillins Propensity to adverse reactions 7 Swelling, Hives [facility] (6 sources) Penicillins Allergy to substance 2 Unknown, Anaphylaxis [facility] (1 source) Penicillin; Translations: [penicillin] Drug Allergy [facility] (6 sources) Acetaminophen / Codeine; Translations: [ACETAMINOPHEN-CO DEINE] Drug Allergy 9 Nausea And Vomiting [facility] (20 sources) Penicillins Propensity to adverse reactions 7 Hives, Swelling [facility] Work Phone: (1 source) Codeine Drug Allergy [facility] (1 source) Penicillins Drug allergy (disorder) [facility] (1 source) Chlorhexidine Drug Allergy 5 [facility] (1 source) Codeine Drug Allergy 5 [facility] (1 source) Latex Drug allergy (disorder) 5 [facility] (1 source) Penicillins Drug allergy (disorder) 5 [facility] Medications Current Medications Medication Drug Class(es) Dates Sig (Normalized) Sig (Original) amLODIPine 10 mg oral tablet (20 sources) Dihydropyridine Calcium Channel Chris Start: 08-31-2024 End: 05-13-2025 take 1 tablet by mouth once daily Amlodipine 10 mg tablet Active 10 mg PO DAILY January 28, 2025 12:00am blood pressure Start: 02-29-2024 End: 08-26-2024 take 1 tablet by mouth once daily amLODIPine (NORVASC) 10 mg tablet Indications: Primary hypertension Take 1 tablet by mouth once daily. 90 tablet 1 02/29/2024 08/26/2024 Discontinued Start: 02-23-2023 End: 01-28-2025 take 1 tablet by mouth once daily Amlodipine 5 mg tablet Discontinued 5 mg PO DAILY May 31, 2023 12:00am January 28, 2025 9:19am BLOOD PRESSURE Start: 06-22-2022 take 1 tablet by ezekiel [...] mg tablet Discontinued 2.5 mg PO DAILY 30 0 January 12, 2021 12:00am June 21, 2022 12:39pm Start: 08-14-2018 End: 01-12-2021 take 1 tablet by mouth once daily Amlodipine 10 mg tablet Discontinued 10 mg PO DAILY August 14, 2018 1:00am January 12, 2021 12:00pm blood pressure Comment on above: Take 2 tablets by [facility] once daily. Take 1 tablet by [facility] once daily. ascorbic acid 60 mg / [...] Aggregation Inhibitor, Nonsteroidal Anti-inflammatory Drug Start: 05-10-2012 Aspirin (Adult Lo w Dose Aspirin) 81 mg tablet,delayed release (DR/EC) Active 81 mg PO DAILY August 14, 2018 1:00am [facility] Aspirin 81 MG TA BS TAKE 1 TABLET DAILY. Quantity: 0 Refills: 0 Ordered: 05-Apr-2022 DO Active Comment on above: [facility] atorvastatin 40 mg oral tablet (20 sources) HMG-CoA Reductase Inhibitor Start: 8 End: 5 take 1 tablet by mouth at bedtime Atorvastatin 40 mg tablet Active 40 mg PO AT BEDTIME August 14, 2018 1:00am CHOLESTEROL Comment on above: Take 1 tablet by ezekiel th daily at bedtime. B Complex-Vitamin C-Folic Acid (Kenneth-Petey) 0.8 mg Tablet (6 sources) Start: take 1 tablet by mouth once daily B Complex-Vitamin C-Folic Acid (Kenneth-Petey) 0.8 mg Tablet Active 1 {tbl} PO DAILY January 11, 2021 12:00am SUPPLEMENT Start: 01-11-2021 take 1 tablet by ezekiel [...] the event of a Fluress shortage, administer Stephania-Fluor 1 drop into both eyes as directed [...] 500 mg PO TWICE A DAY 14 7 0 September 19, 2022 1:00am May 31, 2023 [...] take 1 tablet by mouth twice daily Clonidine Hcl 0.2 mg tablet Active 0.2 mg PO TWICE A DAY January 28, 2025 12:00am blood pressure Start: 08-14-2018 End: 01-28-2025 take 1 tablet by mouth at bedtime Clonidine Hcl 0.3 mg tablet Discontinued 0.3 mg PO AT BEDTIME May 31, 2023 12:00am January 28, 2025 9:19am BLOOD PRESSURE Comment on above: Take 1 tablet by ezekiel th daily at bedtime. docusate sodium 100 mg oral capsule (20 sources) Start: 05-17-2019 take 1 capsule by mouth every twelve hours as needed docusate sodium (COLACE) 100 mg capsule Take 1 capsule by mouth twice daily as needed for Constipation. 05/17/2019 Active Start: 05-17-2019 take 1 capsule by [facility] every twelve hours docusate sodium (Colace) 100 mg capsule Take 1 capsule (100 mg) by mouth every 12 hours if needed. 05/17/2019 Active Comment on above: Take 1 capsule by [facility] twice daily as needed for [...] 11, 2021 12:00am June 21, 2022 12:38pm binder Start: 12-18-2020 Auryxia 210 mg oral tablet Dose : 630 mg = 3 tab(s), Oral, TIDM Start Date: 12/18/20 Status: Ordered Comment on above: Take 1 tablet by [facility] once daily. furosemide 40 mg oral tablet (8 sources) Loop Diuretic Start: 01-30-2025 End: 05-13-2025 take 1 tablet by mouth once daily Furosemide (Lasix) 40 mg tablet Active 40 mg PO DAILY 90 0 January 30, 2025 12:00am 3 ml insulin glargine 100 unt/ml pen injector (20 sources) Insulin Analog Start: 01-28-2025 Insulin Glargine (Lantus Solostar U-100 Insulin) 100 unit/mL (3 mL) insulin pen Active 48 U SC AT BEDTIME January 28, 2025 12:00am diabetes Start: 01-28-2025 Insulin Glargi ne (Insulin Glargine [...] (20 sources) Insulin Analog Start: 01-28-2025 Insulin Lispro 100 unit/mL insulin pen Active 8 U SC .COMPLEX January 28, 2025 12:00am diabetes INJECT 8 UNITS SUBCUTANEOUSLY THREE TIMES DAILY BEFORE MEALS, Add 1 UNIT for each 50 mg/dl above 150. Start: 05-13-2024 End: 12-05-2024 inject 8 [IU] [...] mg oral tablet (20 sources) l-Thyroxine Start: 11-09-19 End: 05-13-20 take 1 tablet by mouth once daily Levothyroxine 125 mcg tablet Active 125 ug PO DAILY May 31, 2023 12:00am THYROID Start: 12-18-2020 levothyroxine 112 mcg (0.112 mg) oral tablet Dose : 112 mcg = 1 tab(s), Oral, qDay Start Date: 12/18/20 Status: Ordered Start: 08-14-2018 End: 05-31-2023 take 1 capsule by mouth once daily Levothyroxine 112 mcg capsule Discontinued 112 ug PO DAILY August 14, 2018 1:00am May 31, 2023 9:46am thyroid Comment on above: Take 1 tablet by ezekiel th once daily. Take on empty stomach. For Thyroid lisinopril 40 mg oral tablet (20 sources) Angiotensin Converting Enzyme Inhibitor Start: 11-16-2021 End: 05-13-2025 take 1 tablet by mouth once daily Lisinopril 40 mg tablet Active 40 mg PO DAILY May 31, 2023 12:00am BLOOD PRESSURE Start: 08-14-2018 End: 06-21-2022 take 1 tablet by mouth twice daily Lisinopril 20 mg tablet Discontinued 20 mg PO TWICE A DAY August 14, 2018 1:00am June 21, 2022 12:38pm blood pressure Comment on above: Take 1 tablet by ezekiel th once daily. metoprolol tartrate 25 mg oral tablet (20 sources) beta-Adrenergic Chris Start: 08-31-2024 End: 03-12-2025 take 1 tablet by mouth every twelve hours Metoprolol Tartrate 25 mg tablet Active 25 mg PO Q12H January 28, 2025 12:00am blood pressure Start: 06-21-2023 End: 08-26-2024 take 1 tablet by mouth every twelve hours metoprolol tartrate, short acting, (LOPRESSOR) 25 mg tablet Indications: ASCVD (arteriosclerotic cardiovascular disease) Take 1 tablet by mouth every 12 hours. 180 tablet 1 02/29/2024 08/26/2024 Discontinued Comment on above: Take 1 tablet by ezekiel th every 12 hours. NEPHRO-PETEY 0.8 mg tab [...] the tongue every 5 minutes as needed. ondansetron 4 mg disintegrating oral tablet (4 sources) Serotonin-3 Receptor Antagonist Start: take 1 tablet by mouth every eight hours as needed for nausea Ondansetron 4 mg tablet,disintegrati ng Active 4 mg PO EVERY 8 HOURS NEEDED as needed for Nausea 10 0 May 17, 2025 12:00am Start: 06-08-2023 End: 01-28-2025 take 1 tablet by mouth every six hours as needed for nausea and vomiting Ondansetron Hcl 4 mg tablet Discontinued 4 mg PO EVERY 6 HOURS as needed for nausea and vomiting 5 0 June 08, 2023 12:00am January 28, 2025 9:19am oxyCODONE hydrochloride 5 mg oral tablet (4 sources) Opioid Agonist Start: 05-17-2025 take 1 tablet by mouth every six hours as needed for pain Oxycodone 5 mg tablet Active 5 mg PO EVERY 6 HOURS as needed for pain 12 3 0 May 17, 2025 Nausea and vomiting Nausea with vomiting, unspecified Start: 06-06-2023 End: 01-28-2025 take 1 tablet by mouth every six hours as needed for pain Oxycodone 5 mg Tablet Discontinued 5 mg PO EVERY 6 HOURS NEEDED as needed for Pain Score 6-10 10 3 0 June 06, 2023 January 28, 2025 9:19am Irreducible incisional hernia Incisional hernia with obstruction, without gangrene phenylephrine hydrochloride 25 mg/ml ophthalmic solution (3 [...] mg chewable tablet (20 sources) Start: 05-29-2023 take 1 tablet by mouth three times daily Sucroferric Oxyhydroxide (Velphoro) 500 mg tablet,chewable Active 500 mg PO THREE TIMES A DAY May 31, 2023 12:00am PHOSPHATE BINDER Velphoro CHEW Ta ke as directed Quantity: [...] % 1 drop (MYDRIACYL) Start: 01-02-2025 End: 05-02-2025 1 drop, BOTH EYES, DIRECT ED, Starting [...] 4 HOURS NEEDED as needed for Pain 10 2 0 June 21, 2022 May 31, 2023 9:35am Otalgia Otalgia, unspecified ear Start: 06-21-2022 take 1 tablet by ezekiel th every four hours as needed Hydrocodone-Acetaminophen Active 1 TABLE T PO EVERY 4 HOURS NEEDED 10 2 June 21, 2022 Start: 11-26-2021 End: 12-01-2021 take [...] HOURS NEEDED as needed for Pain 9 3 0 December 11, 2018 2:17pm December 13, 2018 12:00am December 14, 2018 12:09am Problem with dialysis access Start: 12-11-2018 End: 12-14-2018 take 1 tablet by mouth every six hours as needed Hydrocodone-Acetaminophen Discontinued 1 TABLET PO EVERY 6 HOURS NEEDED 9 3 December 11, 2018 2:17pm December 14, 2018 12:09am Start: 12-06-2018 End: 12-09-2018 Hydrocodone-Acetaminophen 1 TABLET tablet Discontinued 1 {tbl} PO EVERY 6 HOURS NEEDED as needed for Pain 10 3 0 December 06, 2018 12:00am December 08, 2018 12:00am December 09, 2018 12:08am Postoperative pain Other acute postprocedural pain Start: 12-06-2018 End: 12-09-2018 take 1 tablet by mouth every six hours as needed Hydrocodone-Acetaminophen Discontinued 1 TABLET PO EVERY 6 HOURS NEEDED 10 3 December 06, 2018 12:00am December 09, 2018 12:08am Start: 09-20-2018 End: 09-23-2018 Hydrocodone-Acetaminophen 1 TABLET tablet Discontinued 1 {tbl} PO EVERY 6 HOURS NEEDED as needed for Pain 8 3 0 September 20, 2018 1:00am September 22, 2018 1:00am September 23, 2018 1:09am Postoperative pain Other acute postprocedural pain Start: 09-20-2018 End: 09-23-2018 take 1 tablet by mouth every six hours as needed Hydrocodone-Acetaminophen Discontinued 1 TABLET PO EVERY 6 HOURS NEEDED 8 3 September 20, 2018 1:00am September 23, 2018 1:09am Comment on above: Take 1 tablet by ezekiel th every 8 hours as needed for pain for up to 5 days. brimonidine tartrate 1.5 mg/ml ophthalmic solution (19 sources) alpha-Adrenergic Agonist Start: 05-31-2023 End: 05-31-2023 take 1 drop(s) into the eye(s) three times daily Brimonidine 0.15 % drops Discontinued 1 NMA OPHTHALMIC THREE TIMES A DAY May 31, 2023 12:00am May 31, 2023 9:45am GLAUCOMA INSTILL 1 DROP INTO LEFT EYE 3 [...] each 50 mg/dl above 150 15 mL 06/12/2023 06/13/2023 Discontinued (Not on Formulary) Start: 08-12-2021 End: 05-04-2022 insulin aspart U-100 (NOVOLO G U-100 INSULIN ASPART) 100 unit/mL Indications: Controlled type 2 diabetes mellitus without complication, with long-term current use of insulin (HCC) Inject 8 Units subcutaneously three times daily before meals. Add 1 units for each 50 mg/dL above 150. 40 mL 05/02/2022 05/04/2022 Discontinued (Not on Formulary) Start: 01-12-2021 End: 01-28-2025 Insulin Aspart U-100 (Novolo g Flexpen U-100 Insulin) 100 unit/mL insulin pen Discontinued 8 U SC 3 TIMES DAILY WITH MEALS 0 0 January 12, 2021 11:52am January 28, 2025 9:19am insulin Start: 12-18-2020 NovoLOG 100 un its/mL injectable solution Dose : 10 unit(s) =, Subcutaneous, TIDAC Start Date: 12/18/20 Status: Ordered Start: 08-14-2018 End: 01-12-2021 Insulin Aspart U-100 (Novolo g Flexpen U-100 Insulin) 100 unit/mL insulin pen Discontinued 10 U SC 3 TIMES DAILY WITH MEALS August 14, 2018 1:00am January 12, 2021 11:52am insulin Comment on above: Inject 8 Units subcu [...] Discontinued 48 U SC AT BEDTIME 0 0 January 12, 2021 11:52am January 28, 2025 9:19am diabetes Start: 01-12-2021 Insulin Detemi r U-100 Active [...] 13, 2018 1:00am January 12, 2021 11:52am insulin Start: 09-13-2018 End: 01-12-2021 Insulin Detemir U-100 [...] times daily. levoFLOXacin 750 mg oral tablet (6 sources) Quinolone Antimicrobial Start: 06-21-20 End: 05-31-20 take 1 tablet by mouth once daily Levofloxacin 750 mg tablet Discontinued 750 mg PO DAILY June 21, 2022 12:00am May 31, 2023 9:36am pantoprazole 40 mg delayed release oral tablet (3 sources) Proton Pump Inhibitor Start: 06-08-20 End: 01-29-20 take 1 tablet by mouth once daily Pantoprazole 40 mg tablet,delayed release (DR/EC) Discontinued 40 mg PO DAILY 01 01June 08, 2023 12:00am January 28, 2025 9:22am perflutren lipid microspheres (Definity) injection 2 mL of dilution (2 sources) Start: 09-18-19 End: 09-18-19 perflutren lipid microspheres (Definity) injection 2 mL of dilution polyethylene glycol 3350 [id number] mg / potassium chloride 2970 mg / sodium bicarbonate 6740 mg / sodium chloride 5860 mg / sodium sulfate 49238 mg powder for oral solution (20 sources) Osmotic Laxative Start: 11-17-19 peg 3350-Electrolytes (GOLYTELY) 236-22.74-6.74 -5.86 gram suspension Indications: Special screening for malignant neoplasms, colon Refer to printed prep instructions from your provider. 4000 mL 0 11/16/2021 Active Comment on above: Refer to printed pre p instructions from your provider. prednisoLONE acetate 10 mg/ml ophthalmic suspension (20 sources) Corticosteroid Start: 05-30-20 End: 07-23-20 24 take 1 drop(s) into the eye(s) four [...] Comment on above: Take 1 tablet by [facility] twice daily for 10 days. Tc-99m tetrofosmin [...] Classification Problem Date Documented Date Episodic/Chronic Abdominal hernia (20 sources) Obstructed hernia of anterior abdominal wall; Translations: [Other and unspecified ventral hernia with obstruction, without gangrene] Onset: 12-10-19 Resolved : 06-29-2012-09-2021 Episodic Abdominal pain (1 source) Left flank pain; Translations: [Unspecified abdominal pain] Episodic Anxiety disorders (11 sources) Anxiety; Translations: [Anxiety disorder, unspecified] Onset: 06-12-2009-06-2019 Chronic Cardiac dysrhythmias (20 sources) Ventricular tachycardia; Translations: [Ventricular tachycardia] Onset: 05-17-20 19 08-29-2019 Chronic Cataract (10 sources) Cataract; Translations: [Artificial lens present] Onset: 07-22-2001-03-2018 Chronic Comment on above: Medical clearance on chart for surgery 01/08/18. Chronic kidney disease (20 sources) End stage renal failure on dialysis; Translations: [End stage renal disease] Onset: 07-17-20 Resolved : 10-27-1904-10-2020 Chronic Comment on above: Left upper arm fistu la creation- 09/20/18 Complication of device; implant or graft (20 sources) Arterial steal syndrome; Translations: [Other specified complication of vascular prosthetic devices, implants and grafts, initial encounter] Onset: 05-17-20 Resolved : 02-24-2005-17-2019 Chronic Complication of device; implant or graft (1 source) Other complications due to other internal prosthetic device, implant, and graft; Translations: [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] 11-16-2023 Episodic Conditions associated with dizziness or vertigo (17 sources) Dizziness of unknown cause; Translations: [Dizziness and giddiness] Onset: 07-22-20 24 2021 Episodic Congestive heart failure; nonhypertensive (20 sources) Congestive heart failure; Translations: [Heart failure, unspecified] Onset: 11-09-19 24 01-11-2021 Chronic Coronary atherosclerosis and other heart disease (20 sources) Arteriosclerotic vascular disease; Translations: [Atherosclerotic heart disease of [place] coronary artery without angina pectoris] Onset: 05-10-20 12 05-10-2012 Chronic Deficiency and other anemia (8 sources) Anemia of chronic disease; Translations: [Anemia in other chronic diseases classified elsewhere] Onset: 06-12-2007-22-2024 Chronic Deficiency and other anemia (1 source) Anemia in chronic kidney disease; Translations: [Anemia of chronic renal failure, stage 5 (HCC)] Onset: 02-07-20 Chronic Diabetes mellitus with complications (14 sources) Type 2 diabetes mellitus; Translations: [Type 2 diabetes mellitus with diabetic chronic kidney disease] Onset: 07-22-2001-12-2021 Chronic Diabetes mellitus without complication (20 sources) Type 2 diabetes mellitus without complication; Translations: [Type 2 diabetes mellitus without complications] Onset: 09-04-18 86 11-16-2021 Chronic Digestive congenital anomalies (1 source) Tortuous colon; Translations: [Other specified congenital malformations of intestine] Chronic Disorders of lipid metabolism (20 sources) Hyperlipidemia; Translations: [Hyperlipidemia, unspecified] Onset: 09-04-1903-22-2012 Chronic Esophageal disorders (11 sources) Gastroesophageal reflux disease; Translations: [Gastro-esophageal reflux disease without esophagitis] Onset: 07-22-2009-06-2019 Chronic Essential hypertension (20 sources) Hypertensive disorder; Translations: [Essential (primary) hypertension] Onset: 09-04-1905-21-2019 Chronic Fluid and electrolyte disorders (20 sources) Hyperkalemia; Translations: [Hyperkalemia] Onset: 06-12-20 Resolved : 09-14-1906-20-2023 Episodic Headache; including migraine (20 sources) Migraine; Translations: [Migraine, unspecified, not intractable, without status migrainosus] Onset: 05-21-2001-03-2018 Chronic Headache; including migraine (11 sources) Headache; Translations: [Headache] Onset: 07-22-2009-07-2019 Episodic Heart valve disorders (1 source) Systolic murmur; Translations: [Cardiac murmur, unspecified] 10-26-2023 Episodic Hemorrhoids (11 sources) Hemorrhoids; Translations: [Unspecified hemorrhoids] Onset: 07-22-2001-22-2019 Episodic Hypertension with complications and secondary hypertension (20 sources) Hypertensive left ventricular hypertrophy; Translations: [Hypertensive heart disease without heart failure] Onset: 07-22-2007-23-2024 Chronic Immunizations and screening for infectious disease (5 sources) Vaccination needed; Translations: [Encounter for immunization] Onset: 05-13-2006-29-2023 Episodic Inflammation; infection of eye (except that caused by tuberculosis or sexually transmitteddisease) (1 source) Neurotrophic keratoconjunctivitis of left eye; Translations: [Neurotrophic keratoconjunctivitis, left eye] 11-22-2023 Chronic Malaise and fatigue (3 sources) Physical deconditioning; Translations: [Other malaise] Onset: 05-13-20 25 05-13-2025 Episodic Mood disorders (20 sources) Depressive disorder; Translations: [Depression] Onset: 09-04-19 Resolved : 06-12-20 23 08-09-2019 Chronic Nausea and vomiting (1 source) Nausea and vomiting; Translations: [Nausea with vomiting, unspecified] 05-17-2025 Episodic Open wounds of extremities (6 sources) Avulsion of toenail; Translations: [Unspecified open wound of unspecified toe(s) with damage to nail, initial encounter] Onset: 01-01-20 25 12-31-2024 Episodic Other and ill-defined heart disease (6 sources) Heart disease; Translations: [Heart disease, unspecified] 09-06-2019 Chronic Other and ill-defined heart disease (5 sources) Diastolic dysfunction; Translations: [Other ill-defined heart diseases] Onset: 07-22-20 24 07-22-2024 Chronic Other and unspecified benign neoplasm (1 [...] Translations: [Secondary hyperparathyroidism of renal origin] Onset: 06-20-20 23 06-20-2023 Chronic Other ear and sense organ disorders (6 sources) Pain of ear structure; Translations: [Otalgia, unspecified ear] 06-21-2022 Episodic Other eye disorders (1 source) Corneal transplant status; Translations: [Status post corneal transplant] Onset: 01-03-20 Chronic Other eye disorders (2 sources) Idiopathic corneal edema, bilateral; Translations: [Idiopathic corneal edema] 06-27-2023 Episodic Other female genital disorders (1 source) Vaginal discharge; Translations: [Other specified noninflammatory disorders of vagina] Episodic Other gastrointestinal disorders (11 sources) Constipation; Translations: [Constipation, unspecified] Onset: 07-22-2001-22-2019 Episodic Other gastrointestinal disorders (3 sources) Personal history of other diseases of [...] endocrine, nutritional and metabolic disease] 06-11-2024 Episodic Other screening for suspected conditions (not mental disorders or infectious disease) (20 sources) Patient encounter status; Translations: [Encounter for screening mammogram for malignant neoplasm of breast] Onset: 11-16-19 Resolved : 09-14-19 Episodic Otitis media and related conditions (19 sources) Acute mastoiditis; Translations: [Acute mastoiditis without complications, bilateral] Onset: 07-22-20 Episodic [place]-; endo-; and myocarditis; cardiomyopathy (except [...] status] Onset: 07-23-20 Chronic Residual codes; unclassified (6 sources) History of excision of intestinal structure; Translations: [Acquired absence of other specified parts of digestive tract] 09-06-2019 Episodic Residual codes; unclassified (8 sources) Family history of cancer of colon; Translations: [Family history of malignant neoplasm of digestive organs] 08-04-2020 Episodic Residual codes; unclassified (1 source) History of cardiac catheterization; Translations: [Other specified postprocedural states] 12-07-2023 Episodic Respiratory failure; insufficiency; arrest (adult) (11 sources) Acute respiratory failure; Translations: [Acute respiratory failure with hypoxia] Onset: 07-22-2001-22-2019 Episodic Superficial injury; contusion (1 source) Abrasion of left cornea; Translations: [Injury of conjunctiva and corneal abrasion without foreign body, left eye, initial encounter] 11-22-2023 Episodic Thyroid disorders (20 sources) Hypothyroidism; Translations: [Hypothyroidism, unspecified] Onset: 03-30-2003-30-2012 Chronic Thyroid disorders (6 sources) Disorder of thyroid gland; Translations: [Disorder [...] toe(s) with damage to nail, initial encounter Urinary tract infections (20 sources) Acute cystitis; Translations: [Acute cystitis with hematuria] Onset: 06-12-20 Resolved : 03-22-20 12 Episodic Comment on above: on admit Past or Other Problems Problem Classification Problem Date Documented Date Episodic/Chronic Calculus of urinary tract (20 sources) Kidney stone; Translations: [Calculus of kidney] Onset: 06-12-2007 Resolved: 03-22-2012 03-22-2012 Episodic Chronic kidney disease (2 sources) Chronic kidney disease Onset: 09-18-2017 Genitourinary symptoms and ill-defined conditions (20 sources) Lacho hematuria; Translations: [Gross hematuria] Onset: 06-14-2013 Episodic Mood disorders (16 sources) Mood disorders Onset: 05-31-2023 Resolved: 04-12-2024 08-25-2023 Other aftercare (2 sources) Encounter for therapeutic drug level monitoring; Translations: [Encounter for therapeutic drug level monitoring] Onset: 07-25-2024 Episodic Other aftercare (1 source) 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; Translations: [Controlled type [...] of cervix uteri] Onset: 12-20-2024 Episodic Other lower respiratory disease (1 source) Hypoxemia; Translations: [Hypoxia] Onset: 02-06-2025 Episodic Other nutritional; endocrine; and metabolic disorders (11 sources) H/O: hypothyroidism; Translations: [Personal history of other endocrine, metabolic, and immunity disorders] Onset: 07-22-2024 07-22-2024 Episodic Other nutritional; endocrine; and metabolic disorders (1 source) Personal history of other endocrine, nutritional and metabolic disease; Translations: [History of diabetes mellitus] Onset: 06-11-2024 Episodic Residual codes; unclassified (20 sources) Past [...] left heart catheterization (LHC)] Onset: 06-11-2024 Episodic Screening and history of mental health and substance abuse codes (3 sources) Ex-smoker; Translations: [Personal history of nicotine dependence] Onset: 06-11-2024 12-07-2023 Episodic Unclassified (4 sources) Patient encounter status 07-11-2024 Unclassified (5 sources) Onset: 07-23-2024 Resolved: 07-25-2024 07-23-2024 Results Test Name Value Interpretation Reference Range Facility Absolute lymphocyte countOrd ered By: Donald Ruiz on 05-17-2025 Lymphocytes Auto (Unsp spec) [#/Vol] 1.41 10*3/uL 0.83-4.51 [facility] Absolute neutrophil countOrd ered By: Donald Ruiz on 05-17-2025 Neutrophils (Bld) [#/Vol] 5.0 10*3/uL 2.0-7.7 [facility] Anion gap in Serum or Plasma Ordered By: Donald Ruiz on 05-17-2025 Anion gap [Moles/Vol] 16 mmol/L High 5-15 [facility] Automated lymphocyte count a s percentage of total leukocytesOrdered By: Donald Ruiz on 05-17-2025 Lymphocytes/100 WBC Auto (Unsp spec) 20.0 % 19-41 [facility] BUN/creatinine ratioOrdered By: Donald Ruiz on 05-17-2025 Urea nitrogen/Creatinine [Mass ratio] 5.1 mg/mg Low 10-20 [facility] Basophil percentageOrdered B y: Donald Ruiz on 05-17-2025 Basophils/100 WBC (Bld) 1.0 % 0-1 [facility] Bilirubin, totalOrdered By: Donald Ruiz on 05-17-2025 Bilirubin [Mass/Vol] 0.43 mg/dL 0.00-1.30 [facility] Carbon dioxide, total [Moles /volume] in Central venous bloodOrdered By: Donald Ruiz on 05-17-2025 CO2 [Moles/Vol] 28.6 mmol/L 21.0-32.0 [facility] Chloride assayOrdered By: kalia Ruiz on 05-17-2025 Chloride [Moles/Vol] 95 mmol/L Low 98-108 [facility] Eosinophil percentageOrdered By: Donald Ruiz on 05-17-2025 Eosinophils/100 WBC (Bld) 0.7 % 0-5 [facility] Erythrocyte distribution wid th ratioOrdered By: Donald Ruiz on 05-17-2025 Erythrocyte distribution width (RBC) [Ratio] 12.7 % 11.6-14.6 [facility] Erythrocyte distribution wid th standard deviationOrdered By: Donald Ruiz on 05-17-2025 Erythrocyte distribution width (RBC) [Ratio] 41.9 fl 35.1-43.9 [facility] Glomerular filtration rate ( GFR) estimation/1.73 sq m using serum, plasma, or whole bOrdered By: Donald Ruiz on 05-17-2025 GFR/1.73 sq M.predicted among non-blacks MDRD (S/P/Bld) [Vol rate/Area] 7 mL/min/{1.73_m2} Low >60 [facility] Comment on above: mL/min/1.73m2 CKD-EP I Creatinine Equation (2020) Hematocrit Auto (Bld) [Volum e fraction]Ordered By: Donald Ruiz on 05-17-2025 Hematocrit (Bld) [Volume fraction] 34.7 % Low 37-47 [facility] Hemoglobin measurementOrdere d By: Donald Ruiz on 05-17-2025 Hemoglobin (Bld) [Mass/Vol] 11.2 g/dL Low 12.0-15.0 [facility] Immature granulocytes/100 WB C Auto (Bld)Ordered By: Donald Ruiz on 05-17-2025 Immature granulocytes/100 WBC (Bld) 0.400 % 0.0-0.9 [facility] Comment on above: IG% - Immature Granu locytes (promyelocytes, myelocytes and metamyelocytes) > 1% indicates that a LEFT SHIFT is Present. Laboratory - Chemistry and C hemistry - challengeOrdered By: Donald Ruiz on 05-17-2025 AST [Catalytic activity/Vol] 49 U/L High <32 [facility] Lipase measurementOrdered By : Donald Ruiz on 05-17-2025 Lipase [Catalytic activity/Vol] 25 U/L 13-75 [facility] Comment on above: Please note:LIPASE r evised reference range effective 22. New Lipase methodology. Expected to produce lower values than the previous assay method. NEW Reference Range: 13 - 75 U/L MCV (mean corpuscular volume ) determinationOrdered By: Donald Ruiz on 05-17-2025 MCV (RBC) [Entitic vol] 89.9 fL 81-99 [facility] Mean corpuscular hemoglobin (MCH) determinationOrdered By: Donald Ruiz on 05-17-2025 MCH (RBC) [Entitic mass] 29.0 pg 27.0-32.0 [facility] Mean corpuscular hemoglobin concentration (MCHC) determinationOrdered By: Donald Ruiz on 05-17-2025 MCHC (RBC) [Mass/Vol] 32.3 g/dL 32-36 [facility] Mean platelet volume determi nationOrdered By: Donald Ruiz on 05-17-2025 Platelet mean volume (Bld) [Entitic vol] 10.1 fL 6.2-12.0 [facility] Monocyte percentageOrdered B y: Donald Ruiz on 05-17-2025 Monocytes/100 WBC (Bld) 6.5 % 0-10 [facility] Neutrophil percentageOrdered By: Donald Ruiz on 05-17-2025 Neutrophils/100 WBC (Bld) 71.4 % High 47-70 [facility] Nucleated red blood cell per centageOrdered By: Donald Ruiz on 05-17-2025 Nucleated RBC/100 WBC (Bld) [Ratio] 0 % 0-5 [facility] Platelet countOrdered By: Georgina Ruiz on 05-17-2025 Platelets (Bld) [#/Vol] 185 10*3/uL 150-450 [facility] Potassium measurement (mass/ volume)Ordered By: Donald Ruiz on 05-17-2025 Potassium (Unsp spec) [Mass/Vol] 4.4 mmol/L 3.3-5.1 [facility] RBC Auto (Bld) [#/Vol]Ordere d By: Donald Ruiz on 05-17-2025 RBC (Bld) [#/Vol] 3.86 10*6/uL Low 4.2-5.4 [facility] Serum creatinine measurement (mass/volume)Ordered By: Donald Ruiz on 05-17-2025 Creatinine [Mass/Vol] 6.01 mg/dL High 0.70-1.20 [facility] Serum globulin measurementOr dered By: Donald Ruiz on 05-17-2025 Globulin (S) [Mass/Vol] 3.4 g/dL 2.2-4.2 [facility] Serum glucose measurement (m ass/volume)Ordered By: Donald Ruiz on 05-17-2025 Glucose [Mass/Vol] 121 mg/dL High 70-99 [facility] Serum or plasma alanine hansen otransferase (ALT) measurementOrdered By: Donald Ruiz on 05-17-2025 ALT [Catalytic activity/Vol] 34 U/L <35 [facility] Serum or plasma albumin vignesh urement (mass/volume)Ordered By: Donald Ruiz on 05-17-2025 Albumin [Mass/Vol] 4.5 g/dL 3.4-4.8 [facility] Serum or plasma albumin/glob ulin mass ratioOrdered By: Donald Ruiz on 05-17-2025 Albumin/Globulin [Mass ratio] 1.3 {ratio} 0.9-2.4 [facility] Serum or plasma alkaline rosalind sphatase measurementOrdered By: Donald Ruiz on 05-17-2025 ALP [Catalytic activity/Vol] 226 U/L High 35-104 [facility] Serum or plasma calcium vignesh urement (mass/volume)Ordered By: Donald Ruiz on 05-17-2025 Calcium [Mass/Vol] 10.2 mg/dL 7.6-11.0 [facility] Serum or plasma urea nitroge n measurement (mass/volume)Ordered By: Donald Ruiz on 05-17-2025 Urea nitrogen [Mass/Vol] 31 mg/dL High 4-19 [facility] Sodium levelOrdered By: Estela Ruiz on 05-17-2025 Sodium [Moles/Vol] 139 mmol/L 133-145 [facility] Total proteinOrdered By: Lainey Ruiz on 05-17-2025 Protein [Mass/Vol] 7.8 g/dL 5.9-8.4 [facility] White blood cell (WBC) count Ordered By: Donald Ruiz on 05-17-2025 WBC (Bld) [#/Vol] 7.0 10*3/uL 4.4-11.0 [facility] CNOVon 05-13-2025 CNOV Office Visit (INTMWS ) -- SANDY BHATTI ([id number]) 1965 F Date Time Provider Department 05/13/25 [...] for pre kidney transplant evaluation at [facility] on 04/17/25. She walked 198 m [...] to her (more content not included)... Normal [facility] CNPNon 04-23-2025 CNPN Telephone (INTMWS) -- SANDY BHATTI ([id number]) 1965 F Date Time Provider Department 04/23/25 MALDONADO RAZA INTMWS During your visit today, [...] for scr (more content not included)... Normal [facility] CNOVon 02-20-2025 CNOV Office Visit (VANESSAO ) -- SANDY BHATTI ([id number]) 1965 F Date Time Provider Department 02/20/25 [...] kidney disease) stage V requiring chronic dialysis ([facility]) 03/01/2018 Dr. Pendleton, nephrology. Congestive heart failure ([facility]) Constipation Depression 09/04/2006 Encounter for screening for stenosis of carotid artery 03/27/2023 Less then 50% calcification bilaterally. ESRD on dialysis ([facility]) 05/16/2019 GERD (gastroesophageal reflux disease) Hemorrhoids History [...] COLONOSCOPY SCREENING 11/15/2022 COLOSTOMY/SKIN LEVEL CECOSTOMY 2007 [id number], reversed 2007 CREATION OF AVF, PERCUTANEOUS USING [...] lung cancer Coronary Artery Disease Brother dec. [place] 57 y.o. (more content not included)... [facility] ECG COMPLETEon 02-20-2025 ECG COMPLETE Ventricular Rate : 6 8 BPM Atrial Rate : 68 BPM P-R Interval : 170 ms QRS Duration : 132 ms Q-T Interval : 462 ms QTC Calculation(Bazett) : 491 ms Calculated P [place] : 42 degrees Calculated R [place] : -50 degrees Calculated T [place] : 106 degrees Normal sinus rhythm Right bundle branch block Left anterior fascicular block Bifascicular block Questionable change in initial forces of Lateral leads Confirmed by DAVE PICKETT DO ([id number]) on 02/23/2025 5:06:36 PM NAME : SANDY BHATTI PID : [id number] : 1965 Gender : Female Race : ORD : [id number] Procedure Date : Feb 20 2025 09:00:55 Edit Date : Feb 23 2025 17:06:38 Diagnosis: Normal sinus rhythm Right bundle branch block Left anterior fascicular block Bifascicular block Questionable change in initial forces of Lateral leads Confirmed by DAVE PICKETT DO ([id number]) on 02/23/2025 5:06:36 PM Test Reason : HCS Location : 2 : [place] Overread By : DAVE PICKETT DO Edited By : DAVE PICKETT DO Referred By : , Acquired by : [id number], [facility] CNOVon 02-06-2025 CNOV Office Visit (INTMWS ) -- SANDY BHATTI ([id number]) 1965 F Date Time Provider Department 02/06/25 11:40 AM MALDONADO RAZA INTMWS During your visit today, we recorded the following information about you: Temperature Pulse Blood pressure Weight 98.3 degrees 68/minute 124/60 58.9 kg Maldonado Raza MD 02/06/2025 12:48 PM Signed This note was created using PurePlayriter. Subjective Patient presents with: Hospital F/U Recording using Hojoki software for draft documentation of the visit was discussed with the patient/authorized telesales representative; all questions welcomed and answered. Patient/authorized telesales representative agreed to proceed Sandy Bhatti is a 60 year old female. Pulmonary Edema: - Hospitalized at [facility] last Monday for severe dyspnea; initially [...] the feet. CHF: - Followed by a medical practice manager in [place]; has an upcoming appointment. Review of Systems [...] No gallop (more content not included)... Normal [facility] Basic Metabolic Profile (BMP )on 02-02-2025 BUN Normal 4-19 [facility] Comment on above: Result Comment: Canc elled via OM: Order cancelled - Patient discharged Performed By: #### L 501.080 #### [facility] [address] [place], [address] BUN/CRE Normal 10-20 [facility] Comment on above: Result Comment: Canc elled via OM: Order cancelled - Patient discharged Performed By: #### L 501.080 #### [facility] [address] [place], [address] Calcium Normal 7.6-11.0 [facility] Comment on above: Result Comment: Canc elled via OM: Order cancelled - Patient discharged Performed By: #### L 501.080 #### [facility] [address] [place], [address] CL Normal 98-108 [facility] Comment on above: Result Comment: Canc elled via OM: Order cancelled - Patient discharged Performed By: #### L 501.080 #### [facility] [address] [place], [address] CO2 Normal 21.0-32.0 [facility] Comment on above: Result Comment: Canc elled via OM: Order cancelled - Patient discharged Performed By: #### L 501.080 #### [facility] [address] [place], [address] CREAT,SERUM Normal 0.70-1.20 [facility] Comment on above: Result Comment: Canc elled via OM: Order cancelled - Patient discharged Performed By: #### L 501.080 #### [facility] [address] [place], [address] eGFR Normal >60 [facility] Comment on above: Result Comment: Canc elled via OM: Order cancelled - Patient discharged Performed By: #### L 501.080 #### [facility] [address] [place], [address] GAP Normal 5-15 [facility] Comment on above: Result Comment: Canc elled via OM: Order cancelled - Patient discharged Performed By: #### L 501.080 #### [facility] [address] [place], [address] GLU Normal 70-99 [facility] Comment on above: Result Comment: Canc elled via OM: Order cancelled - Patient discharged Performed By: #### L 501.080 #### [facility] [address] [place], [address] Potassium Normal 3.3-5.1 [facility] Comment on above: Result Comment: Canc elled via OM: Order cancelled - Patient discharged Performed By: #### L 501.080 #### [facility] [address] [place], [address] Basic Metabolic Profile (BMP) Normal 133-145 [facility] Comment on above: Result Comment: Canc elled via OM: Order cancelled - Patient discharged Performed By: #### L 501.080 #### [facility] [address] [place], [address] Basic Metabolic Profile (BMP )on 02-01-2025 BUN Normal 4-19 [facility] Comment on above: Result Comment: Canc elled via OM: Order cancelled - Patient discharged Performed By: #### L 501.080 #### [facility] [address] [place], [address] BUN/CRE Normal 10-20 [facility] Comment on above: Result Comment: Canc elled via OM: Order cancelled - Patient discharged Performed By: #### L 501.080 #### [facility] [address] [place], [address] Calcium Normal 7.6-11.0 [facility] Comment on above: Result Comment: Canc elled via OM: Order cancelled - Patient discharged Performed By: #### L 501.080 #### [facility] [address] [place], [address] CL Normal 98-108 [facility] Comment on above: Result Comment: Canc elled via OM: Order cancelled - Patient discharged Performed By: #### L 501.080 #### [facility] [address] [place], [address] CO2 Normal 21.0-32.0 [facility] Comment on above: Result Comment: Canc elled via OM: Order cancelled - Patient discharged Performed By: #### L 501.080 #### [facility] [address] [place], [address] CREAT,SERUM Normal 0.70-1.20 [facility] Comment on above: Result Comment: Canc elled via OM: Order cancelled - Patient discharged Performed By: #### L [id number] #### [facility] [address] [place], [address] eGFR Normal >60 [facility] Comment on above: Result Comment: Canc elled via OM: Order cancelled - Patient discharged Performed By: #### L [id number] #### [facility] [address] [place], [address] GAP Normal 5-15 [facility] Comment on above: Result Comment: Canc elled via OM: Order cancelled - Patient discharged Performed By: #### L [id number] #### [facility] [address] [place], [address] GLU Normal 70-99 [facility] Comment on above: Result Comment: Canc elled via OM: Order cancelled - Patient discharged Performed By: #### L 501.080 #### [facility] [address] [place], [address] Potassium Normal 3.3-5.1 [facility] Comment on above: Result Comment: Canc elled via OM: Order cancelled - Patient discharged Performed By: #### L [id number] #### [facility] [address] [place], [address] Basic Metabolic Profile (BMP) Normal 133-145 [facility] Comment on above: Result Comment: Canc elled via OM: Order cancelled - Patient discharged Performed By: #### L [id number] #### [facility] [address] [place], [address] Basic Metabolic Profile (BMP )on 01-31-2025 BUN Normal 4-19 [facility] Comment on above: Result Comment: Canc elled via OM: Order cancelled - Patient discharged Performed By: #### L [id number] #### [facility] [address] [place], [address] BUN/CRE Normal 10-20 [facility] Comment on above: Result Comment: Canc elled via OM: Order cancelled - Patient discharged Performed By: #### L [id number] #### [facility] [address] [place], [address] Calcium Normal 7.6-11.0 [facility] Comment on above: Result Comment: Canc elled via OM: Order cancelled - Patient discharged Performed By: #### L [id number] #### [facility] [address] [place], [address] CL Normal 98-108 [facility] Comment on above: Result Comment: Canc elled via OM: Order cancelled - Patient discharged Performed By: #### L [id number] #### [facility] [address] [place], [address] CO2 Normal 21.0-32.0 [facility] Comment on above: Result Comment: Canc elled via OM: Order cancelled - Patient discharged Performed By: #### L [id number] #### [facility] [address] [place], [address] CREAT,SERUM Normal 0.70-1.20 [facility] Comment on above: Result Comment: Canc elled via OM: Order cancelled - Patient discharged Performed By: #### L [id number] #### [facility] [address] [place], [address] eGFR Normal >60 [facility] Comment on above: Result Comment: Canc elled via OM: Order cancelled - Patient discharged Performed By: #### L [id number] #### [facility] [address] [place], [address] GAP Normal 5-15 [facility] Comment on above: Result Comment: Canc elled via OM: Order cancelled - Patient discharged Performed By: #### L [id number] #### [facility] [address] [place], [address] GLU Normal 70-99 [facility] Comment on above: Result Comment: Canc elled via OM: Order cancelled - Patient discharged Performed By: #### L [id number] #### [facility] [address] [place], [address] Potassium Normal 3.3-5.1 [facility] Comment on above: Result Comment: Canc elled via OM: Order cancelled - Patient discharged Performed By: #### L [id number] #### [facility] [address] [place], [address] Basic Metabolic Profile (BMP) Normal 133-145 [facility] Comment on above: Result Comment: Canc elled via OM: Order cancelled - Patient discharged Performed By: #### L 501.080 #### [facility] [address] [place], [address] CBC W/Diff, Automatedon 05-3 0-2024 Absolute Neut Normal 2.0-7.7 [facility] Comment on above: Result Comment: Canc elled via OM: Order cancelled - Patient discharged Performed By: #### L 501.080 #### [facility] [address] [place], [address] HCT Normal 37-47 [facility] Comment on above: Result Comment: Canc elled via OM: Order cancelled - Patient discharged Performed By: #### L 501.080 #### [facility] [address] [place], [address] HGB Normal 12.0-15.0 [facility] Comment on above: Result Comment: Canc elled via OM: Order cancelled - Patient discharged Performed By: #### L 501.080 #### [facility] [address] [place], [address] MCH Normal 27.0-32.0 [facility] Comment on above: Result Comment: Canc elled via OM: Order cancelled - Patient discharged Performed By: #### L 501.080 #### [facility] [address] [place], [address] MCHC Normal 32-36 [facility] Comment on above: Result Comment: Canc elled via OM: Order cancelled - Patient discharged Performed By: #### L 501.080 #### [facility] [address] [place], [address] MCV Normal 81-99 [facility] Comment on above: Result Comment: Canc elled via OM: Order cancelled - Patient discharged Performed By: #### L 501.080 #### [facility] [address] [place], [address] NEUT% Normal 47-70 [facility] Comment on above: Result Comment: Canc elled via OM: Order cancelled - Patient discharged Performed By: #### L 501.080 #### [facility] [address] [place], [address] PLT Normal 150-450 [facility] Comment on above: Result Comment: Canc elled via OM: Order cancelled - Patient discharged Performed By: #### L 501.080 #### [facility] [address] [place], [address] RBC Normal 4.2-5.4 [facility] Comment on above: Result Comment: Canc elled via OM: Order cancelled - Patient discharged Performed By: #### L 501.080 #### [facility] [address] [place], [address] RDW CV Normal 11.6-14.6 [facility] Comment on above: Result Comment: Canc elled via OM: Order cancelled - Patient discharged Performed By: #### L 501.080 #### [facility] [address] [place], [address] RDW SD Normal 35.1-43.9 [facility] Comment on above: Result Comment: Canc elled via OM: Order cancelled - Patient discharged Performed By: #### L 501.080 #### [facility] [address] [place], [address] WBC Normal 4.4-11.0 [facility] Comment on above: Result Comment: Canc elled via OM: Order cancelled - Patient discharged Performed By: #### L 501.080 #### [facility] [address] [place], [address] Absolute lymphocyte countOrd ered By: Kade Ricketts on 01-30-2025 Lymphocytes Auto (Unsp spec) [#/Vol] 1.29 10*3/uL 0.83-4.51 [facility] Absolute neutrophil countOrd ered By: Kade Ricketts on 01-30-2025 Neutrophils (Bld) [#/Vol] 3.5 10*3/uL 2.0-7.7 [facility] Anion gap in Serum or Plasma Ordered By: Kade Ricketts on 01-30-2025 Anion gap [Moles/Vol] 9 mmol/L 5-15 [facility] Automated lymphocyte count a s percentage of total leukocytesOrdered By: Kade Ricketts on 01-30-2025 Lymphocytes/100 WBC Auto (Unsp spec) 24.6 % 19-41 [facility] BUN/creatinine ratioOrdered By: Kade Ricketts on 01-30-2025 Urea nitrogen/Creatinine [Mass ratio] 5.6 mg/mg Low 10-20 [facility] Basic Metabolic Profile (BMP )on 01-30-2025 BUN/CRE 5.6 RATIO Low 10-20 [facility] Comment on above: Performed By: #### L 501.080 #### [facility] [address] [place], [address] Calcium [Mass/Vol] 9.1 mg/dL Normal 7.6-11.0 [facility] Comment on above: Performed By: #### L 501.080 #### [facility] [address] [place], [address] Chloride [Moles/Vol] 99 mmol/L Normal 98-108 [facility] Comment on above: Performed By: #### L 501.080 #### [facility] [address] [place], [address] CO2 [Moles/Vol] 27.9 mmol/L Normal 21.0-32.0 [facility] Comment on above: Performed By: #### L 501.080 #### [facility] [address] [place], [address] Creatinine [Mass/Vol] 4.78 mg/dL High 0.70-1.20 [facility] Comment on above: Performed By: #### L 501.080 #### [facility] [address] [place], [address] ECRCL 10.67 ml/min Low 50-250 [facility] Comment on above: Performed By: #### L 501.080 #### [facility] [address] [place], [address] GAP 9 Normal 5-15 [facility] Comment on above: Performed By: #### L 501.080 #### [facility] [address] [place], [address] GFR/1.73 sq M.predicted among non-blacks MDRD (S/P/Bld) [Vol rate/Area] 10 mL/min/{1.73_m2} Low >60 [facility] Comment on above: Result Comment: mL/m in/1.73m2 CKD-EPI Creatinine Equation (2020) Performed By: #### L 501.080 #### [facility] [address] [place], [address] Glucose [Mass/Vol] 186 mg/dL High 70-99 [facility] Comment on above: Performed By: #### L 501.080 #### [facility] [address] [place], [address] Potassium [Moles/Vol] 4.9 mmol/L Normal 3.3-5.1 [facility] Comment on above: Performed By: #### L 501.080 #### [facility] [address] [place], [address] Sodium [Moles/Vol] 135 mmol/L Normal 133-145 [facility] Comment on above: Performed By: #### L 501.080 #### [facility] [address] [place], [address] Urea nitrogen [Mass/Vol] 27 mg/dL High 4-19 [facility] Comment on above: Performed By: #### L 501.080 #### [facility] [address] [place], [address] Basophil percentageOrdered B y: Kade Ricketts on 01-30-2025 Basophils/100 WBC (Bld) 1.3 % High 0-1 [facility] Bedside Glucoseon 01-30-2025 FINGERSTICK GLU 180 mg/dL High 74-106 [facility] Comment on above: Result Comment: RAJI GEMENT OF PATIENT CARE PER NURSING PROTOCOL Performed By: #### L 501.080 #### [facility] [address] [place], [address] FINGERSTICK GLU 179 mg/dL High 74-106 [facility] Comment on above: Result Comment: RAJI GEMENT OF PATIENT CARE PER NURSING PROTOCOL Performed By: #### L 501.080 #### [facility] [address] [place], [address] FINGERSTICK GLU 156 mg/dL High 74-106 [facility] Comment on above: Result Comment: RAJI GEMENT OF PATIENT CARE PER NURSING PROTOCOL Performed By: #### L 501.080 #### [facility] [address] [place], [address] CBC W/Diff, Automatedon 01-03 Absolute Lymph 1.29 X10 3/uL Normal 0.83-4.51 [facility] Comment on above: Performed By: #### L 501.080 #### [facility] [address] [place], [address] Absolute Neut 3.5 X10 3/uL Normal 2.0-7.7 [facility] Comment on above: Performed By: #### L 501.080 #### [facility] [address] [place], [address] Basophils/100 WBC (Bld) 1.3 % High 0-1 [facility] Comment on above: Performed By: #### L 501.080 #### [facility] [address] [place], [address] Eosinophils/100 WBC (Bld) 1.0 % Normal 0-5 [facility] Comment on above: Performed By: #### L 501.080 #### [facility] [address] [place], [address] Erythrocyte distribution width (RBC) [Ratio] 13.7 % Normal 11.6-14.6 [facility] Comment on above: Performed By: #### L 501.080 #### [facility] [address] [place], [address] Hematocrit (Bld) [Volume fraction] 25.5 % Low 37-47 [facility] Comment on above: Performed By: #### L 501.080 #### [facility] [address] [place], [address] Hemoglobin (Bld) [Mass/Vol] 8.3 g/dL Low 12.0-15.0 [facility] Comment on above: Performed By: #### L 501.080 #### [facility] [address] [place], [address] IG% 0.400 Normal 0.0-0.9 [facility] Comment on above: Result Comment: IG% - Immature Granulocytes (promyelocytes, myelocytes and metamyelocytes) > 1% indicates that a LEFT SHIFT is Present. Performed By: #### L 501.080 #### [facility] [address] [place], [address] Lymphocytes/100 WBC (Bld) 24.6 % Normal 19-41 [facility] Comment on above: Performed By: #### L 501.080 #### [facility] [address] [place], [address] MCH (RBC) [Entitic mass] 30.5 pg Normal 27.0-32.0 [facility] Comment on above: Performed By: #### L 501.080 #### [facility] [address] [place], [address] MCHC (RBC) [Mass/Vol] 32.5 g/dL Normal 32-36 [facility] Comment on above: Performed By: #### L [id number] #### [facility] [address] [place], [address] MCV (RBC) [Entitic vol] 93.8 fL Normal 81-99 [facility] Comment on above: Performed By: #### L 501.080 #### [facility] [address] [place], [address] Monocytes/100 WBC (Bld) 6.3 % Normal 0-10 [facility] Comment on above: Performed By: #### L 501.080 #### [facility] [address] [place], [address] Neutrophils/100 WBC (Bld) 66.4 % Normal 47-70 [facility] Comment on above: Performed By: #### L 501.080 #### [facility] [address] [place], [address] Nucleated RBC (Bld) [#/Vol] 0 10*3/uL Normal 0-5 [facility] Comment on above: Performed By: #### L 501.080 #### [facility] [address] [place], [address] Platelet mean volume (Bld) [Entitic vol] 9.6 fL Normal 6.2-12.0 [facility] Comment on above: Performed By: #### L 501.080 #### [facility] [address] [place], [address] Platelets (Bld) [#/Vol] 166 10*3/uL Normal 150-450 [facility] Comment on above: Performed By: #### L 501.080 #### [facility] [address] [place], [address] RBC (Bld) [#/Vol] 2.72 10*6/uL Low 4.2-5.4 [facility] Comment on above: Performed By: #### L 501.080 #### [facility] [address] [place], [address] RDW SD 46.0 fl High 35.1-43.9 [facility] Comment on above: Performed By: #### L 501.080 #### [facility] [address] [place], [address] WBC (Bld) [#/Vol] 5.2 10*3/uL Normal 4.4-11.0 [facility] Comment on above: Performed By: #### L 501.080 #### [facility] [address] [place], [address] Carbon dioxide, total [Moles /volume] in Central venous bloodOrdered By: Kade Ricketts on 01-30-2025 CO2 [Moles/Vol] 27.9 mmol/L 21.0-32.0 [facility] Chloride assayOrdered By: Regis Ricketts on 01-30-2025 Chloride [Moles/Vol] 99 mmol/L 98-108 [facility] Eosinophil percentageOrdered By: Kade Ricketts on 01-30-2025 Eosinophils/100 WBC (Bld) 1.0 % 0-5 [facility] Erythrocyte distribution wid th ratioOrdered By: Kade Ricketts on 01-30-2025 Erythrocyte distribution width (RBC) [Ratio] 13.7 % 11.6-14.6 [facility] Erythrocyte distribution wid th standard deviationOrdered By: Kade Ricketts on 01-30-2025 Erythrocyte distribution width (RBC) [Ratio] 46.0 fl High 35.1-43.9 [facility] Glomerular filtration rate ( GFR) estimation/1.73 sq m using serum, plasma, or whole bOrdered By: Kade Ricketts on 01-30-2025 GFR/1.73 sq M.predicted among non-blacks MDRD (S/P/Bld) [Vol rate/Area] 10 mL/min/{1.73_m2} Low >60 [facility] Comment on above: mL/min/1.73m2 CKD-EP I Creatinine Equation (2020) [facility] deOrdered By: Kade Ricketts on 01-30-2025 Glucose [Mass/Vol] 180 mg/dL High 74-106 [facility] Comment on above: MANAGEMENT OF PATIEN T CARE PER NURSING PROTOCOL Hematocrit Auto (Bld) [Volum e fraction]Ordered By: Kade Ricketts on 01-30-2025 Hematocrit (Bld) [Volume fraction] 25.5 % Low 37-47 [facility] Hemoglobin measurementOrdere d By: Kade Ricketts on 01-30-2025 Hemoglobin (Bld) [Mass/Vol] 8.3 g/dL Low 12.0-15.0 [facility] Immature granulocytes/100 WB C Auto (Bld)Ordered By: Kade Ricketts on 01-30-2025 Immature granulocytes/100 WBC (Bld) 0.400 % 0.0-0.9 [facility] Comment on above: IG% - Immature Granu locytes (promyelocytes, myelocytes and metamyelocytes) > 1% indicates that a LEFT SHIFT is Present. MCV (mean corpuscular volume ) determinationOrdered By: Kade Ricketts on 01-30-2025 MCV (RBC) [Entitic vol] 93.8 fL 81-99 [facility] Mean corpuscular hemoglobin (MCH) determinationOrdered By: Kade Ricketts on 01-30-2025 MCH (RBC) [Entitic mass] 30.5 pg 27.0-32.0 [facility] Mean corpuscular hemoglobin concentration (MCHC) determinationOrdered By: Kade Ricketts on 01-30-2025 MCHC (RBC) [Mass/Vol] 32.5 g/dL 32-36 [facility] Mean platelet volume determi nationOrdered By: Kade Ricketts on 01-30-2025 Platelet mean volume (Bld) [Entitic vol] 9.6 fL 6.2-12.0 [facility] Monocyte percentageOrdered B y: Kade Ricketts on 01-30-2025 Monocytes/100 WBC (Bld) 6.3 % 0-10 [facility] Neutrophil percentageOrdered By: Kade Ricketts on 01-30-2025 Neutrophils/100 WBC (Bld) 66.4 % 47-70 [facility] Nucleated red blood cell per centageOrdered By: Kade Ricketts on 01-30-2025 Nucleated RBC/100 WBC (Bld) [Ratio] 0 % 0-5 [facility] Platelet countOrdered By: Regis Ricketts on 01-30-2025 Platelets (Bld) [#/Vol] 166 10*3/uL 150-450 [facility] Potassium measurement (mass/ volume)Ordered By: Kade Ricketts on 01-30-2025 Potassium (Unsp spec) [Mass/Vol] 4.9 mmol/L 3.3-5.1 [facility] RBC Auto (Bld) [#/Vol]Ordere d By: Kade Ricketts on 01-30-2025 RBC (Bld) [#/Vol] 2.72 10*6/uL Low 4.2-5.4 [facility] Serum creatinine measurement (mass/volume)Ordered By: Kade Ricktets on 01-30-2025 Creatinine [Mass/Vol] 4.78 mg/dL High 0.70-1.20 [facility] Serum glucose measurement (m ass/volume)Ordered By: Kade Ricketts on 01-30-2025 Glucose [Mass/Vol] 186 mg/dL High 70-99 [facility] Serum or plasma calcium vignesh urement (mass/volume)Ordered By: Kade Ricketts on 01-30-2025 Calcium [Mass/Vol] 9.1 mg/dL 7.6-11.0 [facility] Serum or plasma urea nitroge n measurement (mass/volume)Ordered By: Kade Ricketts on 01-30-2025 Urea nitrogen [Mass/Vol] 27 mg/dL High 4-19 [facility] Sodium levelOrdered By: Raheem Ricketts on 01-30-2025 Sodium [Moles/Vol] 135 mmol/L 133-145 [facility] White blood cell (WBC) count Ordered By: Kade Ricketts on 01-30-2025 WBC (Bld) [#/Vol] 5.2 10*3/uL 4.4-11.0 [facility] Basic Metabolic Profile (BMP )on 01-29-2025 BUN/CRE 5.7 RATIO Low 10-20 [facility] Comment on above: Performed By: #### L [id number], L501.9985, L100.0100, L501.2300, L500.2500 #### [facility] [address] [place], [address] Calcium [Mass/Vol] 9.0 mg/dL Normal 7.6-11.0 [facility] Comment on above: Performed By: #### L [id number], L501.9985, L100.0100, L501.2300, L500.2500 #### [facility] [address] [place], [address] Chloride [Moles/Vol] 100 mmol/L Normal 98-108 [facility] Comment on above: Performed By: #### L [id number], L501.9985, L100.0100, L501.2300, L500.2500 #### [facility] [address] [place], [address] CO2 [Moles/Vol] 26.8 mmol/L Normal 21.0-32.0 [facility] Comment on above: Performed By: #### L [id number], L501.9985, L100.0100, L501.2300, L500.2500 #### [facility] [address] [place], [address] Creatinine [Mass/Vol] 5.62 mg/dL High 0.70-1.20 [facility] Comment on above: Performed By: #### L [id number], L501.9985, L100.0100, L501.2300, L500.2500 #### [facility] [address] [place], [address] ECRCL 9.08 ml/min Invalid Interpretation Code 50-250 [facility] Comment on above: Performed By: #### L [id number], L501.9985, L100.0100, L501.2300, L500.2500 #### [facility] [address] [place], [address] GAP 10 Normal 5-15 [facility] Comment on above: Performed By: #### L [id number], L501.9985, L100.0100, L501.2300, L500.2500 #### [facility] [address] [place], [address] GFR/1.73 sq M.predicted among non-blacks MDRD (S/P/Bld) [Vol rate/Area] 8 mL/min/{1.73_m2} Low >60 [facility] Comment on above: Result Comment: mL/m in/1.73m2 CKD-EPI Creatinine Equation (2020) Performed By: #### L [id number], L501.9985, L100.0100, L501.2300, L500.2500 #### [facility] [address] [place], [address] Glucose [Mass/Vol] 163 mg/dL High 70-99 [facility] Comment on above: Performed By: #### L 501.5200, L501.9985, L100.0100, L501.2300, L500.2500 #### [facility] [address] [place], [address] Potassium [Moles/Vol] 5.3 mmol/L High 3.3-5.1 [facility] Comment on above: Performed By: #### L 501.5200, L501.9985, L100.0100, L501.2300, L500.2500 #### [facility] [address] [place], [address] Sodium [Moles/Vol] 137 mmol/L Normal 133-145 [facility] Comment on above: Performed By: #### L 501.5200, L501.9985, L100.0100, L501.2300, L500.2500 #### [facility] [address] [place], [address] Urea nitrogen [Mass/Vol] 32 mg/dL High 4-19 [facility] Comment on above: Performed By: #### L [id number], L501.9985, L100.0100, L501.2300, L500.2500 #### [facility] [address] [place], [address] Bedside Glucoseon 01-29-2025 FINGERSTICK GLU 77 mg/dL Normal 74-106 [facility] Comment on above: Result Comment: RAJI GEMENT OF PATIENT CARE PER NURSING PROTOCOL Performed By: #### L 501.080 #### [facility] [address] [place], [address] FINGERSTICK GLU 116 mg/dL High 74-106 [facility] Comment on above: Result Comment: RAJI GEMENT OF PATIENT CARE PER NURSING PROTOCOL Performed By: #### L 501.080 #### [facility] [address] [place], [address] FINGERSTICK GLU 143 mg/dL High 74-106 [facility] Comment on above: Result Comment: RAJI GEMENT OF PATIENT CARE PER NURSING PROTOCOL Performed By: #### L 501.080 #### [facility] [address] [place], [address] FINGERSTICK GLU 162 mg/dL High 74-106 [facility] Comment on above: Result Comment: RAJI JUARES OF PATIENT CARE PER NURSING PROTOCOL Performed By: #### L 500.2500, L100.0100 #### [facility] [address] [place], [address] CBC W/Diff, Automatedon 05-2 Absolute Lymph 1.63 X10 3/uL Normal 0.83-4.51 [facility] Comment on above: Performed By: #### L 501.080 #### [facility] [address] [place], [address] Absolute Neut 3.6 X10 3/uL Normal 2.0-7.7 [facility] Comment on above: Performed By: #### L 501.080 #### [facility] [address] [place], [address] Basophils/100 WBC (Bld) 1.4 % High 0-1 [facility] Comment on above: Performed By: #### L 501.080 #### [facility] [address] [place], [address] Eosinophils/100 WBC (Bld) 1.0 % Normal 0-5 [facility] Comment on above: Performed By: #### L 501.080 #### [facility] [address] [place], [address] Erythrocyte distribution width (RBC) [Ratio] 13.7 % Normal 11.6-14.6 [facility] Comment on above: Performed By: #### L 501.080 #### [facility] [address] [place], [address] Hematocrit (Bld) [Volume fraction] 29.5 % Low 37-47 [facility] Comment on above: Performed By: #### L 501.080 #### [facility] [address] [place], [address] Hemoglobin (Bld) [Mass/Vol] 9.2 g/dL Low 12.0-15.0 [facility] Comment on above: Performed By: #### L 501.080 #### [facility] [address] [place], [address] IG% 0.700 Normal 0.0-0.9 [facility] Comment on above: Result Comment: IG% - Immature Granulocytes (promyelocytes, myelocytes and metamyelocytes) > 1% indicates that a LEFT SHIFT is Present. Performed By: #### L 501.080 #### [facility] [address] [place], [address] Lymphocytes/100 WBC (Bld) 27.9 % Normal 19-41 [facility] Comment on above: Performed By: #### L 501.080 #### [facility] [address] [place], [address] MCH (RBC) [Entitic mass] 30.1 pg Normal 27.0-32.0 [facility] Comment on above: Performed By: #### L 501.080 #### [facility] [address] [place], [address] MCHC (RBC) [Mass/Vol] 31.2 g/dL Low 32-36 [facility] Comment on above: Performed By: #### L 501.080 #### [facility] [address] [place], [address] MCV (RBC) [Entitic vol] 96.4 fL Normal 81-99 [facility] Comment on above: Performed By: #### L 501.080 #### [facility] [address] [place], [address] Monocytes/100 WBC (Bld) 7.4 % Normal 0-10 [facility] Comment on above: Performed By: #### L 501.080 #### [facility] [address] [place], [address] Neutrophils/100 WBC (Bld) 61.6 % Normal 47-70 [facility] Comment on above: Performed By: #### L 501.080 #### [facility] [address] [place], [address] Nucleated RBC (Bld) [#/Vol] 0 10*3/uL Normal 0-5 [facility] Comment on above: Performed By: #### L 501.080 #### [facility] [address] [place], [address] Platelet mean volume (Bld) [Entitic vol] 10.1 fL Normal 6.2-12.0 [facility] Comment on above: Performed By: #### L 501.080 #### [facility] [address] [place], [address] Platelets (Bld) [#/Vol] 165 10*3/uL Normal 150-450 [facility] Comment on above: Performed By: #### L 501.080 #### [facility] [address] [place], [address] RBC (Bld) [#/Vol] 3.06 10*6/uL Low 4.2-5.4 [facility] Comment on above: Performed By: #### L 501.080 #### [facility] [address] [place], [address] RDW SD 47.8 fl High 35.1-43.9 [facility] Comment on above: Performed By: #### L 501.080 #### [facility] [address] [place], [address] WBC (Bld) [#/Vol] 5.9 10*3/uL Normal 4.4-11.0 [facility] Comment on above: Performed By: #### L 501.080 #### [facility] Laboratory [address] [place], [address] Absolute Neut Normal 2.0-7.7 [facility] Comment on above: Result Comment: This specimen has been REJECTED due to Laboratory criteria: Quanity Not Sufficient. LCOLLINS has been notified of need of recollection. 01/29/25603 Attila [place] Performed By: #### L 501.5200, L501.9985, L100.0100, L501.2300, L500.2500 #### [facility] Laboratory [address] [place], [address] HCT Normal 37-47 [facility] Comment on above: Result Comment: This specimen has been REJECTED due to Laboratory criteria: Quanity Not Sufficient. LCOLLINS has been notified of need of recollection. 01/29/25603 Attila Chelsey Performed By: #### L 501.5200, L501.9985, L100.0100, L501.2300, L500.2500 #### [facility] Laboratory [address] [place], [address] HGB Normal 12.0-15.0 [facility] Comment on above: Result Comment: This specimen has been REJECTED due to Laboratory criteria: Quanity Not Sufficient. LCOLLINS has been notified of need of recollection. 01/29/25603 Attila [place] Performed By: #### L 501.5200, L501.9985, L100.0100, L501.2300, L500.2500 #### [facility] Laboratory [address] [place], [address] MCH Normal 27.0-32.0 [facility] Comment on above: Result Comment: This specimen has been REJECTED due to Laboratory criteria: Quanity Not Sufficient. LCOLLINS has been notified of need of recollection. 01/29/2504 Attila Chelsey Performed By: #### L 501.5200, L501.9985, L100.0100, L501.2300, L500.2500 #### [facility] Laboratory [address] [place], [address] MCHC Normal 32-36 [facility] Comment on above: Result Comment: This specimen has been REJECTED due to Laboratory criteria: Quanity Not Sufficient. LCOLLINS has been notified of need of recollection. 01/29/25603 Attila Chelsey Performed By: #### L 501.5200, L501.9985, L100.0100, L501.2300, L500.2500 #### [facility] Laboratory [address] [place], [address] MCV Normal 81-99 [facility] Comment on above: Result Comment: This specimen has been REJECTED due to Laboratory criteria: Quanity Not Sufficient. LCOLLINS has been notified of need of recollection. 01/29/25603 Attila [place] Performed By: #### L 501.5200, L501.9985, L100.0100, L501.2300, L500.2500 #### [facility] Laboratory [address] [place], [address] NEUT% Normal 47-70 [facility] Comment on above: Result Comment: This specimen has been REJECTED due to Laboratory criteria: Quanity Not Sufficient. LCOLLINS has been notified of need of recollection. 01/29/25603 Attila Chelsey Performed By: #### L 501.5200, L501.9985, L100.0100, L501.2300, L500.2500 #### [facility] Laboratory [address] [place], [address] PLT Normal 150-450 [facility] Comment on above: Result Comment: This specimen has been REJECTED due to Laboratory criteria: Quanity Not Sufficient. LCOLLINS has been notified of need of recollection. 01/29/25603 Attila Chelsey Performed By: #### L 501.5200, L501.9985, L100.0100, L501.2300, L500.2500 #### [facility] Laboratory [address] [place], [address] RBC Normal 4.2-5.4 [facility] Comment on above: Result Comment: This specimen has been REJECTED due to Laboratory criteria: Quanity Not Sufficient. LCOLLINS has been notified of need of recollection. 01/29/25603 Attila [place] Performed By: #### L 501.5200, L501.9985, L100.0100, L501.2300, L500.2500 #### [facility] Laboratory [address] [place], [address] RDW CV Normal 11.6-14.6 [facility] Comment on above: Result Comment: This specimen has been REJECTED due to Laboratory criteria: Quanity Not Sufficient. LCOLLINS has been notified of need of recollection. 01/29/25603 Attila Chelsey Performed By: #### L 501.5200, L501.9985, L100.0100, L501.2300, L500.2500 #### [facility] Laboratory [address] [place], [address] RDW SD Normal 35.1-43.9 [facility] Comment on above: Result Comment: This specimen has been REJECTED due to Laboratory criteria: Quanity Not Sufficient. LCOLLINS has been notified of need of recollection. 01/29/25603 Attila [place] Performed By: #### L 501.5200, L501.9985, L100.0100, L501.2300, L500.2500 #### [facility] Laboratory [address] [place], [address] WBC Normal 4.4-11.0 [facility] Comment on above: Result Comment: This specimen has been REJECTED due to Laboratory criteria: Quanity Not Sufficient. LCOLLINS has been notified of need of recollection. 01/29/25603 Attila Chelsey Performed By: #### L 501.5200, L501.9985, L100.0100, L501.2300, L500.2500 #### [facility] Laboratory [address] [place], [address] Hemoglobin A1con 01-29-2025 HbA1c (Bld) [Mass fraction] 7.4 % High <=5.6 [facility] Comment on above: Result Comment: Norm al < 5.7 % Prediabetic 5.7 - 6.4 % Diabetic >or= 6.5 % Please note range changes. Performed By: #### L 501.080 #### [facility] Laboratory [address] [place], [address] Magnesiumon 01-29-2025 Magnesium [Mass/Vol] 2.7 mg/dL High 1.5-2.2 [facility] Comment on above: Performed By: #### L 501.5200, L501.9985, L100.0100, L501.2300, L500.2500 #### [facility] Laboratory [address] [place], [address] Magnesium measurement (mass/ volume)Ordered By: Kade Ricketts on 01-29-2025 Magnesium (Unsp spec) [Mass/Vol] 2.7 mg/dL High 1.5-2.2 [facility] Phosphoruson 01-29-2025 Phosphate [Mass/Vol] 2.9 mg/dL Normal 2.7-4.5 [facility] Comment on above: Performed By: #### L 501.5200, L501.9985, L100.0100, L501.2300, L500.2500 #### [facility] Laboratory [address] [place], [address] Absolute lymphocyte countOrd ered By: Dave Coronado on 01-28-2025 Lymphocytes Auto (Unsp spec) [#/Vol] 1.29 10*3/uL 0.83-4.51 [facility] Absolute neutrophil countOrd ered By: Dave Nabeel on 01-28-2025 Neutrophils (Bld) [#/Vol] 5.8 10*3/uL 2.0-7.7 [facility] Anion gap in Serum or Plasma Ordered By: [facility] on 01-28-2025 Anion gap [Moles/Vol] 13 mmol/L 5-15 [facility] Automated lymphocyte count a s percentage of total leukocytesOrdered By: Dave wilsonVinicius on 01-28-2025 Lymphocytes/100 WBC Auto (Unsp spec) 16.7 % Low 19-41 [facility] BUN/creatinine ratioOrdered By: [facility]ira[facility]inicius on 01-28-2025 Urea nitrogen/Creatinine [Mass ratio] 4.3 mg/mg Low 10-20 [facility] Basic Metabolic Profile (BMP )on 01-28-2025 BUN/CRE 4.3 RATIO Low - [facility] Comment on above: Performed By: #### L 500.2500, L100.0100 #### [facility] Laboratory [address] [place], [address] Calcium [Mass/Vol] 9.9 mg/dL Normal 7.6-11.0 [facility] Comment on above: Performed By: #### L 500.2500, L100.0100 #### [facility] Laboratory [address] [place], [address] Chloride [Moles/Vol] 99 mmol/L Normal 98-108 [facility] Comment on above: Performed By: #### L 500.2500, L100.0100 #### [facility] Laboratory [address] [place], [address] CO2 [Moles/Vol] 29.0 mmol/L Normal 21.0-32.0 [facility] Comment on above: Performed By: #### L 500.2500, L100.0100 #### [facility] Laboratory [address] [place], [address] Creatinine [Mass/Vol] 4.48 mg/dL High 0.70-1.20 [facility] Comment on above: Performed By: #### L 500.2500, L100.0100 #### [facility] Laboratory [address] [place], [address] ECRCL 11.98 ml/min Low 50-250 [facility] Comment on above: Performed By: #### L 500.2500, L100.0100 #### [facility] Laboratory [address] [place], [address] GAP 13 Normal 5-15 [facility] Comment on above: Performed By: #### L 500.2500, L100.0100 #### [facility] Laboratory [address] [place], [address] GFR/1.73 sq M.predicted among non-blacks MDRD (S/P/Bld) [Vol rate/Area] 11 mL/min/{1.73_m2} Low >60 [facility] Comment on above: Result Comment: mL/m in/1.73m2 CKD-EPI Creatinine Equation (2020) Performed By: #### L 500.2500, L100.0100 #### [facility] Laboratory [address] [place], [address] Glucose [Mass/Vol] 227 mg/dL High 70-99 [facility] Comment on above: Performed By: #### L 500.2500, L100.0100 #### [facility] Laboratory [address] [place], [address] Potassium [Moles/Vol] 4.1 mmol/L Normal 3.3-5.1 [facility] Comment on above: Performed By: #### L 500.2500, L100.0100 #### [facility] Laboratory [address] [place], [address] Sodium [Moles/Vol] 141 mmol/L Normal 133-145 [facility] Comment on above: Performed By: #### L 500.2500, L100.0100 #### [facility] Laboratory [address] [place], [address] Urea nitrogen [Mass/Vol] 19 mg/dL Normal 4-19 [facility] Comment on above: Performed By: #### L 500.2500, L100.0100 #### [facility] Laboratory [address] [place], [address] Basophil percentageOrdered B y: Dave Coronado on 01-28-2025 Basophils/100 WBC (Bld) 1.0 % 0-1 [facility] Bedside Glucoseon 01-28-2025 FINGERSTICK GLU 143 mg/dL High 74-106 [facility] Comment on above: Result Comment: RAJI GEMENT OF PATIENT CARE PER NURSING PROTOCOL Performed By: #### L 501.080 #### [facility] Laboratory [address] [place], [address] FINGERSTICK GLU 62 mg/dL Low 74-106 [facility] Comment on above: Result Comment: RAJI GEMENT OF PATIENT CARE PER NURSING PROTOCOL Performed By: #### L 500.2500, L100.0100 #### [facility] Laboratory [address] [place], [address] FINGERSTICK GLU 108 mg/dL High 74-106 [facility] Comment on above: Result Comment: RAJI GEMENT OF PATIENT CARE PER NURSING PROTOCOL Performed By: #### L 500.2500, L100.0100 #### [facility] Laboratory [address] [place], [address] FINGERSTICK GLU 207 mg/dL High 74-106 [facility] Comment on above: Result Comment: RAJI GEMENT OF PATIENT CARE PER NURSING PROTOCOL Performed By: #### L 501.080 #### [facility] Laboratory [address] [place], [address] CBC W/Diff, Automatedon 01-03 Absolute Lymph 1.29 X10 3/uL Normal 0.83-4.51 [facility] Comment on above: Performed By: #### L 500.2500, L100.0100 #### [facility] Laboratory [address] [place], [address] Absolute Neut 5.8 X10 3/uL Normal 2.0-7.7 [facility] Comment on above: Performed By: #### L 500.2500, L100.0100 #### [facility] Laboratory [address] [place], [address] Basophils/100 WBC (Bld) 1.0 % Normal 0-1 [facility] Comment on above: Performed By: #### L 500.2500, L100.0100 #### [facility] Laboratory [address] [place], [address] Eosinophils/100 WBC (Bld) 0.5 % Normal 0-5 [facility] Comment on above: Performed By: #### L 500.2500, L100.0100 #### [facility] Laboratory [address] [place], [address] Erythrocyte distribution width (RBC) [Ratio] 13.0 % Normal 11.6-14.6 [facility] Comment on above: Performed By: #### L 500.2500, L100.0100 #### [facility] Laboratory [address] [place], [address] Hematocrit (Bld) [Volume fraction] 29.3 % Low 37-47 [facility] Comment on above: Performed By: #### L 500.2500, L100.0100 #### [facility] Laboratory [address] [place], [address] Hemoglobin (Bld) [Mass/Vol] 9.7 g/dL Low 12.0-15.0 [facility] Comment on above: Performed By: #### L 500.2500, L100.0100 #### [facility] Laboratory [address] [place], [address] IG% 0.800 Normal 0.0-0.9 [facility] Comment on above: Result Comment: IG% - Immature Granulocytes (promyelocytes, myelocytes and metamyelocytes) > 1% indicates that a LEFT SHIFT is Present. Performed By: #### L 500.2500, L100.0100 #### [facility] Laboratory [address] [place], [address] Lymphocytes/100 WBC (Bld) 16.7 % Low 19-41 [facility] Comment on above: Performed By: #### L 500.2500, L100.0100 #### [facility] Laboratory [address] [place], [address] MCH (RBC) [Entitic mass] 30.2 pg Normal 27.0-32.0 [facility] Comment on above: Performed By: #### L 500.2500, L100.0100 #### [facility] Laboratory [address] [place], [address] MCHC (RBC) [Mass/Vol] 33.1 g/dL Normal 32-36 [facility] Comment on above: Performed By: #### L 500.2500, L100.0100 #### [facility] Laboratory [address] [place], [address] MCV (RBC) [Entitic vol] 91.3 fL Normal 81-99 [facility] Comment on above: Performed By: #### L 500.2500, L100.0100 #### [facility] Laboratory [address] [place], [address] Monocytes/100 WBC (Bld) 5.4 % Normal 0-10 [facility] Comment on above: Performed By: #### L 500.2500, L100.0100 #### [facility] Laboratory [address] [place], [address] Neutrophils/100 WBC (Bld) 75.6 % High 47-70 [facility] Comment on above: Performed By: #### L 500.2500, L100.0100 #### [facility] Laboratory [address] [place], [address] Nucleated RBC (Bld) [#/Vol] 0 10*3/uL Normal 0-5 [facility] Comment on above: Performed By: #### L 500.2500, L100.0100 #### [facility] Laboratory [address] [place], [address] Platelet mean volume (Bld) [Entitic vol] 9.6 fL Normal 6.2-12.0 [facility] Comment on above: Performed By: #### L 500.2500, L100.0100 #### [facility] Laboratory [address] [place], [address] Platelets (Bld) [#/Vol] 205 10*3/uL Normal 150-450 [facility] Comment on above: Performed By: #### L 500.2500, L100.0100 #### [facility] Laboratory [address] [place], [address] RBC (Bld) [#/Vol] 3.21 10*6/uL Low 4.2-5.4 [facility] Comment on above: Performed By: #### L 500.2500, L100.0100 #### [facility] Laboratory [address] [place], [address] RDW SD 42.9 fl Normal 35.1-43.9 [facility] Comment on above: Performed By: #### L 500.2500, L100.0100 #### [facility] Laboratory [address] [place], [address] WBC (Bld) [#/Vol] 7.7 10*3/uL Normal 4.4-11.0 [facility] Comment on above: Performed By: #### L 500.2500, L100.0100 #### [facility] Laboratory [address] [place], [address] Carbon dioxide, total [Moles /volume] in Central venous bloodOrdered By: Dave Coronado on 01-28-2025 CO2 [Moles/Vol] 29.0 mmol/L 21.0-32.0 [facility] Chest PA and Lateralon 01-28 Chest PA and Lateral [facility] Imaging Services [address] [place] [address] Chest PA and Lateral MR#: [id number] Acct: [id number] Name: SANDY BHATTI Rep #: [id number] : 1965 F 60 From: Ravi franco MD PCP: Dr. Maldonado Raza MD Status: PRE ER Study: Chest PA and Lateral Date of Exam: 01/28/25 Exam# [id number] Ordering Dr: Dave Coronado DO PROCEDURE: CHEST [...] bibasilar dependent atelectasis and CHF. Reading Location: [facility] CC: Dr. Dave Coronado DO; Dr. Maldonado Raza MD Yoker: Signed Normal [facility] Chloride assayOrdered By: Deuce Coronado on 01-28-2025 Chloride [Moles/Vol] 99 mmol/L 98-108 [facility] Consultation - Nephrologyon 01-28-2025 Consultation - Nephrology [facility] Medical Records Department [address] [place] [address] Consultation - Nephrology 01/28/25 1419 MR#: [id number] Acct: [id number] Name: SANDY BHATTI Rep #: [id number] : 1965 60 From: Charo TREJO PCP: Dr. Maldonado Raza MD Status:ADM IN Location: [place] [address] Assessment Plan Assessment/Plan (1) ESRD (end stage renal disease) on dialysis: PLAN: Plan We will continue dialysis for the patient, no acute indication for [facility] today, next dialysis tomorrow. Will attempt to [...] [facility] Monday followed by Dr. Webb who presented to the emergency room with complaints of shortness of breath. Admitted for acute congestive heart failure. Nephrology consulted in view of history of ESRD and for dialysis management. Patient complains of feeling tired today. Patient states she feels she has extra fluid on. [facility] Medical History S/p small bowel obstruction Incarcerated [...] L, Mo (more content not included)... Normal [facility] Echo Complete W/ Contraston 01-28-2025 Echo Complete W/ Contrast [facility] Cardiovascular Services [address] [place] [address] Echo Complete W/ Contrast 01/28/25 1129 MR#: [id number] Acct: [id number] Name: SANDY BHATTI Rep #: [id number] : 1965 60 From: Lidia Garcia MD Attending Dr: Dr. Kade Ricketts MD Status: ADM IN Ordering Dr: Kade Ricketts MD Date: 01/28/25 Location: U Sex: F C Admitted: 01/28/25 Reason For [...] Raza MD Date Dictated: 01/28/251128 Date Transcribed: 01/28/251850 Yoker: Signed Normal [facility] Echocardiogram study reportO rdered By: Lidia Garcia on 01-28-2025 Study report [facility] Cardiovascular Services [address] [place] [address] Echo Complete W/ Contrast 01/28/251128 MR#: [id number] Acct: [id number] Name: SANDY BHATTI Rep #:[id number] : 1965 60 From: Lidia Garcia MD Attending Dr: Dr. Kade Ricketts MD Status: ADM IN Ordering Dr: Kade Ricketts MD Date: Location: [facility] Sex: F C Admitted: 01/28/25 Reason For [...] Maldonado Raza MD ~ Date Dictated: 01/28/25 112 Date Transcribed: 01/28/251850 Yoker: Signed [facility] Work Phone: Emergency Department Summary on 01-28-2025 Emergency Department Summary [facility] Medical Records Department [address] [place] [address] Emergency Department Summary 01/28/25 MR#: [id number] Acct: [id number] Name: SANDY BHATTI Rep #: [id number] : 1965 60 From: Dave Coronado DO [...] intact Psych: Cooperative, appropriate mood and affect [facility] Medical History S/p small bowel obstruction Incarcerated [...] Respiratory Effort (more content not included)... Normal [facility] Eosinophil percentageOrdered By: Dave Cliff on 01-28-2025 Eosinophils/100 WBC (Bld) 0.5 % 0-5 [facility] Erythrocyte distribution wid th ratioOrdered By: [facility] Health[facility] on 01-28-2025 Erythrocyte distribution width (RBC) [Ratio] 13.0 % 11.6-14.6 [facility] Erythrocyte distribution wid th standard deviationOrdered By: [facility] on 01-28-2025 Erythrocyte distribution width (RBC) [Ratio] 42.9 fl 35.1-43.9 [facility] Glomerular filtration rate ( GFR) estimation/1.73 sq m using serum, plasma, or whole bOrdered By: [facility] HospitalAlejandro on 01-28-2025 GFR/1.73 sq M.predicted among non-blacks MDRD (S/P/Bld) [Vol rate/Area] 11 mL/min/{1.73_m2} Low >60 [facility] Comment on above: mL/min/1.73m2 CKD-EP I Creatinine Equation (2020) H AND P Exam - Hospitaliston 01-28-2025 H&P Exam - Hospitalist [facility] Medical Records Department [address] [place] [address] H P Exam - Hospitalist 01/28/25 0925 MR#: [id number] Acct: [id number] Name: SANDY BHATTI Rep #: [id number] : 1965 60 From: Kade Ricketts MD PCP: Dr. Maldonado Raza MD Status:ADM IN Location: [facility] [id number] HPI - General General Date of Admission: [...] to a monitored bed for further management [facility] Medical History S/p small bowel obstruction Incarcerated [...] Mean 57 (more content not included)... Normal [facility] Hematocrit Auto (Bld) [Volum e fraction]Ordered By: Dave Coronado on 01-28-2025 Hematocrit (Bld) [Volume fraction] 29.3 % Low 37-47 [facility] Hemoglobin A1c percentageOrd ered By: Kade Ricketts on 01-28-2025 HbA1c (Bld) [Mass fraction] 7.4 % High <5.7 [facility] Comment on above: Normal < 5.7 % Predi abetic 5.7 - 6.4 % Diabetic >or= 6.5 % Please note range changes. Hemoglobin measurementOrdere d By: Dave Coronado on 01-28-2025 Hemoglobin (Bld) [Mass/Vol] 9.7 g/dL Low 12.0-15.0 [facility] Immature granulocytes/100 WB C Auto (Bld)Ordered By: Dave Coronado on 01-28-2025 Immature granulocytes/100 WBC (Bld) 0.800 % 0.0-0.9 [facility] Comment on above: IG% - Immature Granu locytes (promyelocytes, myelocytes and metamyelocytes) > 1% indicates that a LEFT SHIFT is Present. Influenza virus A and B and SARS-CoV-2 (COVID-19) and Respiratory syncytial virus RNAOrdered By: Dave Coronado on 01-28-2025 SARS-CoV-2 (COVID-19) RNA NOA+probe Ql (Unsp spec) [facility] M100.678on 01-28-2025 M100.678 Pending SARS-CoV-2 (COVID 19) Negative INFLUENZA A Negative INFLUENZA B Negative RSV PCR Negative Normal [facility] Comment on above: Performed By: #### L 501.080 #### [facility] Laboratory [address] [place], [address] MCV (mean corpuscular volume ) determinationOrdered By: Dave Coronado on 01-28-2025 MCV (RBC) [Entitic vol] 91.3 fL 81-99 [facility] Mean corpuscular hemoglobin (MCH) determinationOrdered By: Dave Coronado on 01-28-2025 MCH (RBC) [Entitic mass] 30.2 pg 27.0-32.0 [facility] Mean corpuscular hemoglobin concentration (MCHC) determinationOrdered By: Dave Coronado on 01-28-2025 MCHC (RBC) [Mass/Vol] 33.1 g/dL 32-36 [facility] Mean platelet volume determi nationOrdered By: Dave Coronado on 01-28-2025 Platelet mean volume (Bld) [Entitic vol] 9.6 fL 6.2-12.0 [facility] Monocyte percentageOrdered B y: Dave Coronado on 01-28-2025 Monocytes/100 WBC (Bld) 5.4 % 0-10 [facility] Neutrophil percentageOrdered By: Dave Coronado on 01-28-2025 Neutrophils/100 WBC (Bld) 75.6 % High 47-70 [facility] Nucleated red blood cell per centageOrdered By: Dave Coronado on 01-28-2025 Nucleated RBC/100 WBC (Bld) [Ratio] 0 % 0-5 [facility] Platelet countOrdered By: Deuce Coronado on 01-28-2025 Platelets (Bld) [#/Vol] 205 10*3/uL 150-450 [facility] Potassium measurement (mass/ volume)Ordered By: Dave Coronado on 01-28-2025 Potassium (Unsp spec) [Mass/Vol] 4.1 mmol/L 3.3-5.1 [facility] RBC Auto (Bld) [#/Vol]Ordere d By: Dave Coronado on 01-28-2025 RBC (Bld) [#/Vol] 3.21 10*6/uL Low 4.2-5.4 [facility] Serum creatinine measurement (mass/volume)Ordered By: Dave Coronado on 01-28-2025 Creatinine [Mass/Vol] 4.48 mg/dL High 0.70-1.20 [facility] Serum glucose measurement (m ass/volume)Ordered By: Dave Coronado on 01-28-2025 Glucose [Mass/Vol] 227 mg/dL High 70-99 [facility] Serum or plasma calcium vignesh urement (mass/volume)Ordered By: [facility] HospitaldinoShira Vinicius on 01-28-2025 Calcium [Mass/Vol] 9.9 mg/dL 7.6-11.0 [facility] Serum or plasma urea nitroge n measurement (mass/volume)Ordered By: [facility] on 01-28-2025 Urea nitrogen [Mass/Vol] 19 mg/dL 4-19 [facility] Sodium levelOrdered By: Adal FitzpatrickShiraVinicius on 01-28-2025 Sodium [Moles/Vol] 141 mmol/L 133-145 [facility] White blood cell (WBC) count Ordered By: Dave ThorntonVinicius on 01-28-2025 WBC (Bld) [#/Vol] 7.7 10*3/uL 4.4-11.0 [facility] BRIEF OP NOTon 01-13-2025 BRIEF OP NOT HNO ID: [id number] Author: PONCHO BAUTISTA MD Service: Vascular Surgery Author Type: Resident Type: Brief Op Note Filed: 01/13/2025 19:23 Note Text: BRIEF OPERATIVE / PROCEDURE NOTE LOG ID: [id number] Surgery/Procedure Date: 01/13/2025 Incision/Procedure Start Time: 6:37 PM Incision Close/Procedure End Time: 7:19 PM Surgeon(s)/Proceduralist(s ) and Transportation Analyst(s): Surgeons and Role: * Luna Thomas MD - Primary * Poncho Bautista MD - Resident - Assisting No Additional Staff Procedure(s): - Direct access of right upper extremity loop arteriovenous graft - Diagnostic fistulogram - Venoplasty of central graft stenosis w/ 8x80 Conquest Venoplasty of proximal central stent stenosis w/ 8x80 Conquest - Venoplasty of distal central stent with 8x80 Comins ROBERTA Angio: Access: Closure: 3-0 Prolene suture Contrast: 30mL Fluorotime: 4.5 min, 22 mGy Anesthesia: Procedural Sedation ASA Class: ASA Class: 3 Findings: Pulsatile thrill in AVG. Fistulogram revealed an area of stenosis within the central graft along the outflow track. This was treated with 8x80 Conquest. The central innominate vein stent was then treated with 8x80 Conquest and Comins balloons. Improved thrill, decreased pulsatility, and improved [...] January 13, 2025 TIME: 7:[address] PM [address] [facility] NURSING PROGon 01-13-2025 NURSING PROG HNO ID: [id number] Author: JAMI LYNN RN Service: Nursing Author [...] Jami Lynn RN In Department: ADMITTING Normal [facility] OPERATIVE NOon 01-13-2025 OPERATIVE NO HNO ID: [id number] Author: LUNA THOMAS MD Service: Vascular Surgery Author Type: Physician Type: Operative Report Filed: 02/07/2025 13:08 Note Text: [facility] - Operative Report [id number] [address] [place] SANDY BHATTI : 1965 AGE: 59. SEX: F PATIENT TYPE: A HOSP SVC: VSS LOCATION: [id number] ATTENDING PHYSICIAN: Luna Thomas M.D. CSN NUMBER: [id number] DATE OF SURGERY/PROCEDURE: 01/13/2025 INCISION/PROCEDURE START TIME: 6:37 PM INCISION CLOSE/PROCEDURE END TIME: 7:21 PM PREOPERATIVE DIAGNOSIS: Right arm swelling, elevated central venous pressure. POSTOPERATIVE DIAGNOSIS: Right arm swelling, elevated central venous pressure. SURGEON: Luna Thomas M.D. SUPERVISOR [employer]ITTING [employer] SHIPPING: Poncho Richey. SURGERY/PROCEDURE: 1. Direct access right [...] towards the venous outflow. After placing a 7-Spanish sheath, we advanced the catheter wire to [...] assistance of Dr. Richey. Luna Thomas M.D. [id number] /[id number] Normal [facility] 01-10-2025 CNPN Telephone (VASSMN) -- SANDY BHATTI ([id number]) 1965 F Date Time Provider Department 01/10/25 [...] Status:Closed by KRYS FOUNTAIN on 01/10/[address] [facility] FUNDUS AUTOFLUORESCENCE PHOT O (FAF) OU (BOTH EYES)on 01-02-2025 [facility] Study observation (narrative) [facility] FUNDUS PHOTOS OU (BOTH EYES) on 01-02-2025 [facility] Study observation (narrative) [facility] OCT ANGIOGRAPHY OU (BOTH EYE S)on 01-02-2025 [facility] Study observation (narrative) [facility] OCT MACULA CIRRUS OU (BOTH E YES)on 01-02-2025 [facility] Study observation (narrative) [facility] CNPNon 01-01-2025 CNPN Telephone (VASSMN) -- SANDY BHATTI ([id number]) 1965 F Date Time Provider Department 01/01/25 LUNA THOMAS VASJohnny During your visit today, we recorded the [...] for stenosis of carotid*03/27/2023 Arteriovenous fistula, acquired ([facility]) [I77.0] 06/13/2024 Peripheral arterial disease ([facility]) [I73.9] 07/10/2024 Migraine without aura, not intractable, without*05/21/2021 Encounter Status:Closed by LAKSHMI DAVIES [facility] ([id number]) 1965 F Date Time Provider Department 01/01/25 LUNA THOMAS During your visit today, we recorded the following information about you: Asuncion Pinedo 01/01/2025 4:01 PM Signed Spoke with patient spouse and they both stated that 01/14 would be a great date for the surgery. Explained to patient spouse that someone will follow up with them tomorrow morning. Lakshmi Davies, JESSICA 01/02/2025 8:51 AM Signed Due to a miscommunication/error, pt was offered Sunday 01/[address] Thomas, but he only does HD-related cases on Mondays. Called pt to discuss other options. Spoke with pt. Informed her of the error and that of Dr Thomas's availability to do the procedure on Mondays. Informed pt that we understand that she has HD on , so we can see if one of [...] 07/10/2024 Migrain (more content not included)... Normal [facility] Asiya 12-31-2024 CNPN Telephone ([facility]) -- SANDY BHATTI ([id number]) 1965 F Date Time Provider Department 12/31/24 RAUL DUQUE [facility] During your visit today, we recorded [...] not intractable, without*05/21/2021 Encounter Status:Closed by LEOLA HUFFMAN on 12/31/[address] [facility] Office Visit Reporton 2024 Office Visit Report [facility] [address] [place] [address] OFFICE VISIT Date of Service: 12/31/24 MR#: [id number] Acct: [id number] Patient: SANDY BHATTI Rep #: [id number] 1 : 1965 Provider: ELSY Johns Age/Sex: 59/F Location: [facility] Status: Signed Intake Vital Signs 06/05/23 [...] Adacel(Tdap Adolesn/Ad (more content not included)... Normal [facility]AND[facility] ([id number]) 1965 F Date Time Provider Department 12/30/24 LUNA THOMAS During your visit today, we recorded the following information about you: Rabia Coles 12/30/2024 10:26 AM Signed Referral from [facility] for the patient to be scheduled for a fistulagram due to high venous pressure and cannulation issues. Referral has been scanned into the patient's chart. Vita Purdy RN 12/30/2024 2:52 PM Signed Spoke with patient. Agrees to fistulogram Monday 01/[address] Duque at [facility]. JESSICA Gorman Allergies As of Date: 12/30/2024 [...] Status:Closed by RABIA COLES on 12/30/[address] [facility] HEP B SURFACE AG [CCL]on Hepatitis B Surf. Ag Negative Normal Negative [facility] Comment on above: Result Comment: [facility] [address] [place] [address] Clifton Nathan III, M.D. [id number] Performed By: #### 2 19746 #### [facility],[address] [place], [place] [id number] BUNon 12-27-2024 Urea nitrogen [Mass/Vol] 7 mg/dL Normal - [facility] Comment on above: Performed By: #### 2 17106 #### [facility],[address] [place] [address]2657 Urea nitrogen [Mass/Vol] 31 mg/dL High - 18 [facility] Comment on above: Performed By: #### 2 44515 #### [facility],[address] [place] [address] 08785 CBC + DIFFon 12-27-2024 Baso # 0.02 x10EE3/UL Normal 0.00 - 0.10 [facility] Comment on above: Performed By: #### 2 90597 #### [facility],[address] [place] [address] 78571 Basophils/100 WBC (Bld) 0.4 % Normal 0.0 - 2.0 [facility] Comment on above: Performed By: #### 2 11157 #### [facility],[address] [place] [address] 07202 CBC + DIFF Normal [facility] Comment on above: Result Comment: CBC- COMPLETE BLOOD COUNT Performed By: #### 2 26799 #### [facility],[address] [place] [address] 96918 CELL COUNT 100 Normal [facility] Comment on above: Performed By: #### 2 39729 #### [facility],[address] [place] [address] 24806 EO 1.0 % Normal 0.0 - 7.0 [facility] Comment on above: Performed By: #### 2 66141 #### [facility],[address] [place] [address] 63344 EO # 0.09 x10EE3/UL Normal 0.00 - 0.50 [facility] Comment on above: Performed By: #### 2 85090 #### [facility],[address] [place] [address] 22867 Eosinophils/100 WBC (Bld) 1.5 % Normal 0.0 - 7.0 [facility] Comment on above: Performed By: #### 2 21528 #### [facility],[address] [place] [address] 44055 Erythrocyte distribution width (RBC) [Ratio] 14.1 % Normal 12.0 - 15.6 [facility] Comment on above: Performed By: #### 2 32710 #### [facility],[address] [place] [address] Hematocrit (Bld) [Volume fraction] 33.5 % Low 34.0 - 46.0 [facility] Comment on above: Performed By: #### 2 11610 #### [facility],[address] [place] [address] Hemoglobin (Bld) [Mass/Vol] 11.2 g/dL Low 12.0 - 16.0 [facility] Comment on above: Performed By: #### 2 60942 #### [facility],[address] [place] [address] Lymph # 1.41 x10EE3/UL Normal 0.80 - 2.80 [facility] Comment on above: Performed By: #### 2 11419 #### [facility],[address] [place] [address] 37212 Lymphocytes/100 WBC (Bld) 22.5 % Normal 20.0 - 45.0 [facility] Comment on above: Performed By: #### 2 89339 #### [facility],[address] [place], [place] [address] Lymphocytes/100 WBC (Bld) 21 % Normal 20 - 45 [facility] Comment on above: Performed By: #### 2 42072 #### [facility],[address] [place] [address] MANUAL DIFF SEE BELOW Normal [facility] Comment on above: Performed By: #### 2 75365 #### [facility],[address] [place], [place] [address] MCH (RBC) [Entitic mass] 30 pg Normal 27 - 33 [facility] Comment on above: Performed By: #### 2 74337 #### [facility],[address] [place] [address] 47891 MCHC 34 X10 3 Normal 32 - 36 [facility] Comment on above: Performed By: #### 2 02393 #### [facility],[address] [place], [place] [address] MCV (RBC) [Entitic vol] 89 fL Normal 80 - 99 [facility] Comment on above: Performed By: #### 2 24719 #### [facility],[address] [place] [address] Mcnairy # 0.38 x10EE3/UL Normal 0.20 - 1.00 [facility] Comment on above: Performed By: #### 2 01417 #### [facility],[address] [place] [address] MONOS 8 % Normal 0 - 10 [facility] Comment on above: Performed By: #### 2 28035 #### [facility],[address] [place] [address] 92260 MONOS % 6.0 % Normal 0.0 - 10.0 [facility] Comment on above: Performed By: #### 2 08647 #### [facility],[address] [place], [place] [address] Morphology Jude (Bld) [Interp] NORMAL Normal [facility] Comment on above: Performed By: #### 2 94103 #### [facility],[address] [place] [address] 77660 Neut # 4.35 x10EE3/UL Normal 1.50 - 7.10 [facility] Comment on above: Performed By: #### 2 35461 #### [facility],[address] [place], [place] [address] Neutrophils/100 WBC (Bld) 69.6 % Normal 46.0 - 76.0 [facility] Comment on above: Performed By: #### 2 01153 #### [facility],[address] [place] [address] 96151 PLATELET 198 x10EE3/UL Normal 150 - 450 [facility] Comment on above: Performed By: #### 2 44047 #### [facility],[address] [place] [address] 83723 Platelet mean volume (Bld) [Entitic vol] 7.6 fL Normal 6.6 - 10.5 [facility] Comment on above: Result Comment: AUTO MATED DIFFERENTIAL Performed By: #### 2 25967 #### [facility],[address] [place] [address] 68224 RBC 3.76 x 10EE6/UL Low 4.10 - 5.30 [facility] Comment on above: Performed By: #### 2 99146 #### [facility],[address] [place] [address] 21654 SEGS 70 % Normal 46 - 76 [facility] Comment on above: Performed By: #### 2 77133 #### [facility],[address] [place] [address] 29658 WBC 6.3 x 10EE3/UL Normal 4.5 - 10.8 [facility] Comment on above: Performed By: #### 2 44947 #### [facility],[address] [place] [address] 22057 HBV surface Ag Ser Qlon 12-04 HBV surface Ag Ql (S) Negative Normal Negative [facility] Comment on above: Order Comment: Speci men Type: BLOOD SPECIMENOrdering Facility: [facility] Address: [address] [place] [address] Performed By: #### 5 195-3 ####[facility] [id number] [place] [address] [place] POTASSIUMon 12-27-2024 Potassium [Moles/Vol] 4.5 mmol/L Normal 3.5 - 5.1 [facility] Comment on above: Performed By: #### 2 68909 #### [facility],[address] [facility] [address] Asiya 12-26-2024 ARYA Telephone (YULIJohnny) -- MAGYSANDY MINOR ([id number]) 1965 F Date Time Provider Department 12/26/24 [...] patient is asking if someone can send [facility] a fax? (Not [...] Status:Closed by QUETA PATEL on 12/26/[address] [facility] ABO and Rh group panel (Bld) on 12-19-2024 ABO group Nom (Bld) A Normal [facility] Comment on above: Performed By: #### 3 4530-6 ####LEVI Garcia ([id number])[facility] ([facility] [place] [address] D Ag Ql (Bld) Positive Normal [facility] Comment on above: Performed By: #### 3 4530-6 ####LEVI Garcia ([id number])[facility] ([facility])[address] [place] [address] Amylaseon 12-19-2024 Amylase [Catalytic activity/Vol] 23 U/L Low 29-103 [facility] Comment on above: Performed By: #### 1 798-8 #### LEVI Garcia ([id number]) [facility] ([facility]) [address] [place], [place] [address] C peptideon 12-19-2024 C peptide [Mass/Vol] 1.5 ng/mL Normal 0.7-3.9 [facility] Comment on above: Performed By: #### 1 986-9 ####LEVI Garcia ([id number])[facility] ([facility])[address] [place] [address] 32351 CBC panel Auto (Bld)on 12-19 Erythrocyte distribution width (RBC) [Ratio] 13.5 % Normal 11.5-14.5 [facility] Comment on above: Performed By: #### 5 8410-2 #### LEVI Garcia ([id number]) [facility] ([facility]) [address] [place] [address]121 Hematocrit (Bld) [Volume fraction] 32.6 % Low 36.0-46.0 [facility] Comment on above: Performed By: #### 5 8410-2 #### LEVI Garcia ([id number]) [facility] ([facility]) [address] [place] [address] 53502 Hemoglobin (Bld) [Mass/Vol] 10.5 g/dL Low 12.0-16.0 [facility] Comment on above: Performed By: #### 5 8410-2 #### LEVI Garcia ([id number]) [facility] ([facility]) [address] [place] [address] 61521 MCH (RBC) [Entitic mass] 29.2 pg Normal 26.0-34.0 [facility] Comment on above: Performed By: #### 5 8410-2 #### LEVI Garcia ([id number]) [facility] ([facility]) [address] [place] [address] MCHC (RBC) [Mass/Vol] 32.2 g/dL Normal 32.0-36.0 [facility] Comment on above: Performed By: #### 5 8410-2 #### LEVI Garcia ([id number]) [facility] ([facility]) [address] [place] [address] 98883 MCV (RBC) [Entitic vol] 91 fL Normal 80-100 [facility] Comment on above: Performed By: #### 5 8410-2 #### LEVI Garcia ([id number]) [facility] ([facility]) [address] [place] [address] 80101 Nucleated RBC/100 WBC (Bld) [Ratio] 0.0 /100 WBCs Normal 0.0-0.0 [facility] Comment on above: Performed By: #### 5 8410-2 #### LEVI Garcia ([id number]) [facility] ([facility]) [address] [place] [address] 99955 Platelets (Bld) [#/Vol] 200 x10*3/uL Normal 150-450 [facility] Comment on above: Performed By: #### 5 8410-2 #### LEVI LEE L ([id number]) [facility] ([facility]) [address] [place] [address] 37083 RBC (Bld) [#/Vol] 3.59 x10*6/uL Low 4.00-5.20 [facility] Comment on above: Performed By: #### 5 8410-2 #### LEVI LEE L ([id number]) [facility] ([facility]) [address] [place] [address] 32833 WBC (Bld) [#/Vol] 4.7 x10*3/uL Normal 4.4-11.3 [facility] Comment on above: Performed By: #### 5 8410-2 #### LEVI CALEBLEFTYSKYE Garcia ([id number]) [facility] ([facility]) [address] [place] [address] Asiya 12-19-2024 ARYA Telephone (GABYIVYJohnny) -- SANDY BHATTI ([id number]) 1965 F Date Time Provider Department 12/19/24 [...] a fistulagram. Pt gets dialysis M/W/F at [facility], which is closed //Mon/Mon (per information [...] BSN 5:10 PM December 19, 2024 Vita Purdy, RN 12/20/2024 9:23 AM Signed Attempted to call [facility]. [employer] network outage. Will re attempt to call. JESSICA Gorman Sarah E, RN 12/23/2024 10:09 AM Signed Attempted to speak with clinical team at [facility]. Following telephone prompts, was led to voicemail. Left message requesting call back. Lakshmi Davies RN, BSN 10:09 AM December 23, 2024 Lakshmi Davies RN 12/23/2024 3:06 PM Signed Called [facility] again to try to speak with clinical staff. Spoke with Lias (nurse). She stated that pt is able [...] 12/24/2024 9:09 AM Signed Scanned referral in [facility] regarding Fistulagram. Lakshmi Davies RN 12/30/2024 [...] sugar(s) 3 (more content not included)... Normal [facility] Coagulation tissue factor in ducedon 12-19-2024 PT Coag (PPP) [Time] 10.2 s Normal 9.8-12.4 [facility] Comment on above: Performed By: #### 5 902-2 ####LEVI Garcia ([id number])[facility] ([facility])[address] [place] [address] Creatinineon 12-19-2024 Creatinine [Mass/Vol] 5.09 mg/dL High 0.50-1.05 [facility] Comment on above: Performed By: #### 2 160-0 #### LEVI Garcia ([id number]) [facility] ([facility]) [address] [place] [address]56 Creatinine [Mass/Vol]on 12-03 Glomerular filtration rate/1.73 sq M.predicted 9 mL/min/1.73m*2 Low >60 [facility] Comment on above: Result Comment: Calc ulations of estimated GFR are performed using the 2020 CKD-EPI Study Refit equation without the race variable for the IDMS-Traceable creatinine methods. https://jasn.asnjournals.org/content/early//ASN.802109 0398 Performed By: #### 2 160-0 #### LEVI Garcia ([id number]) [facility] ([facility]) [address] [place], [place] [address] Cytomegalovirus Ab.IgG avidi tyon 12-19-2024 CMV IgG avidity IA [Ratio] Reactive Abnormal Nonreactive [facility] Comment on above: Performed By: #### 5 2984-2 ####LEVI Garcia ([id number])[facility] ([facility])[address] [place] [address] 76324 DRUG PROFILE 9, BLOOD W/ REF CHRIS TO CONFIRMATIONon 12-19-2024 Amphetamines Screen Ql Negative Normal Cutoff 20 [facility] Comment on above: Performed By: #### D S7LC ####[facility]) ([id number])[address] [place] [address] Annotation comment [Interpretation] Narrative See Note Normal [facility] Comment on above: Result Comment: INTE RPRETIVE [...] developed and its performance characteristics determined by [employer]. It has not been cleared or approved by the [place] Food and Drug Administration. This test was performed in a CLIA certified laboratory and is intended for clinical purposes. Performed By: [facility] [address] [place] [address] Wastewater Plant Operator: Jhonathan Ortega MD, PhD CLIA Number: [id number] Performed By: #### D S7LC ####[facility] ([employer]) ([id number])[address] [place] [address] Barbiturates Screen Ql Negative Normal Cutoff 50 [facility] Comment on above: Performed By: #### D S7LC ####[facility] ([employer]) ([id number])[address] [place] [address] Benzodiazepines Screen Ql Negative Normal Cutoff 50 [facility] Comment on above: Performed By: #### D S7LC ####[facility] ([employer]) ([id number])[address] [place] [address] Buprenorphine [Mass/Vol] Negative Normal Cutoff 1 [facility] Comment on above: Performed By: #### D S7LC ####[facility] ([employer]) ([id number])[address] [place] [address] Cannabinoids Screen Ql Negative Normal Cutoff 20 [facility] Comment on above: Performed By: #### D S7LC ####[facility] ([employer]) ([id number])[address] [place] [address] Cocaine Screen Ql Negative Normal Cutoff 20 [facility] Comment on above: Performed By: #### D S7LC ####[facility] ([employer]) ([id number])[address] [place] [address] Methadone Screen Ql Negative Normal Cutoff 25 [facility] Comment on above: Performed By: #### Rylee S7LC ####[facility] (BEAKER) ([id number])[address] [place] [address] Methamphetamine Ql Negative Normal Cutoff 20 [facility] Comment on above: Performed By: #### Rylee S7LC ####[facility] (BEAKER) ([id number])[address] [place] [address] Opiates Screen Ql Negative Normal Cutoff 20 [facility] Comment on above: Performed By: #### Rylee S7LC ####[facility] (BEAKER) ([id number])[address] [place] [address] oxyCODONE Ql Negative Normal Cutoff 20 [facility] Comment on above: Performed By: #### Rylee S7LC ####[facility] ([employer]) ([id number])[address] [place] [address] Phencyclidine Screen Ql Negative Normal Cutoff 10 [facility] Comment on above: Performed By: #### Rylee S7LC ####[facility] (BEAKER) ([id number])[address] [place] [address] OLEGARIO-DE LA PAZ VIRUS ANTIBODY PANELon 12-19-2024 EBV capsid IgG IA Qn (S) Positive Abnormal Negative [facility] Comment on above: Order Comment: EBV I NTERPRETATION CHARTPRIMARY ACUTEVCA-IGG: +/-VCA-IGM: +/-EA-IGG: +/-NA-IGG: -LATE ACUTEVCA-IGG: +VCA-IGM: +/-EA-IGG: +/-NA-IGG: +/-RECOVERINGVCA-IGG: +VCA-IGM: -EA-IGG: +NA-IGG: -PREVIOUS INFECTIONVCA-IGG: +VCA-IGM: -EA-IGG: -NA-IGG: +/- Performed By: #### E BVP1 ####LEVI Garcia ([id number])[facility] ([facility])[address] [place] [address] EBV capsid IgM IA Qn (S) Negative Normal Negative [facility] Comment on above: Order Comment: EBV I NTERPRETATION CHARTPRIMARY ACUTEVCA-IGG: +/-VCA-IGM: +/-EA-IGG: +/-NA-IGG: -LATE ACUTEVCA-IGG: +VCA-IGM: +/-EA-IGG: +/-NA-IGG: +/-RECOVERINGVCA-IGG: +VCA-IGM: -EA-IGG: +NA-IGG: -PREVIOUS INFECTIONVCA-IGG: +VCA-IGM: -EA-IGG: -NA-IGG: +/- Performed By: #### E BVP1 ####LEVI Garcia ([id number])[facility] ([facility])[address] [place] [address] EBV early IgG Ql (S) Negative Normal Negative [facility] Comment on above: Order Comment: EBV I NTERPRETATION CHARTPRIMARY ACUTEVCA-IGG: +/-VCA-IGM: +/-EA-IGG: +/-NA-IGG: -LATE ACUTEVCA-IGG: +VCA-IGM: +/-EA-IGG: +/-NA-IGG: +/-RECOVERINGVCA-IGG: +VCA-IGM: -EA-IGG: +NA-IGG: -PREVIOUS INFECTIONVCA-IGG: +VCA-IGM: -EA-IGG: -NA-IGG: +/- Performed By: #### E BVP1 ####LEVI Garcia ([id number])[facility] ([facility])[address] [place] [address] EBV nuclear Ab Ql (S) Positive Abnormal Negative [facility] Comment on above: Order Comment: EBV I NTERPRETATION CHARTPRIMARY ACUTEVCA-IGG: +/-VCA-IGM: +/-EA-IGG: +/-NA-IGG: -LATE ACUTEVCA-IGG: +VCA-IGM: +/-EA-IGG: +/-NA-IGG: +/-RECOVERINGVCA-IGG: +VCA-IGM: -EA-IGG: +NA-IGG: -PREVIOUS INFECTIONVCA-IGG: +VCA-IGM: -EA-IGG: -NA-IGG: +/- Performed By: #### E BVP1 ####LEVI Garcia ([id number])[facility] ([facility])[address] [place], [place] [address] FLOW AUTOCROSSMATCHon 2024 FLOW AUTOCROSSMATCH Normal [facility] Comment on above: Order Comment: Test performed at:[facility]W.[facility], [id number] [place] [address] Performed By: #### F LAUC ####MISTY NEUMANN S ([id number]) [facility] LAB ([facility])[address] [place] [place] [id number] HLA RESULTS See Attached Normal [facility] Comment on above: Order Comment: Test performed at:[facility], [address]th Ltfmf[address] [place] [address] Performed By: #### F LAUC ####MISTY NEUMANN S ([id number]) [facility] ([facility])[address] [place], [place] [address] HIV 1+2 Ab+HIV1 p24 Agon HIV 1+2 Ab+HIV1 p24 Ag IA Ql Non-Reactive Normal Nonreactive [facility] Comment on above: Order Comment: HIV A g/Ab screen is performed using the Siemens SinallReppler HIV Ag/Ab Combo assay which detects the presence of HIV p24 antigen as well as antibodies to HIV-1 (Group M and O) and HIV-2.No laboratory evidence of HIV infection. If acute HIV infection is suspected, consider testing for HIV RNA by PCR (viral load). Performed By: #### 5 6888-1 ####LEVI Garcia ([id number])[facility] ([facility])[address] [place] [address] HLA NEW KIDNEY,K/P EVALUATIO N PANELon 12-19-2024 FLOW AUTOCROSSMATCH Normal [facility] Comment on above: Order Comment: Test performed at:[facility], [address]th Jajyk[address] [place] [address] Performed By: #### H ANGELOVAL ####MISTY ANDERSENSPAN S ([id number]) HLA LAB ([facility])[address] [place] [address] HLA CLASS I AB SCREEN,[facility] Comment on above: Order Comment: Test performed at:[facility], [address]th Kbucc51354 [place] [address] Performed By: #### H ANGELOVAL ####MISTY NEL S ([id number]) HLA LAB ([facility])[address] [facility], [facility]06 HLA CLASS II AB SCREEN, Normal [facility] Comment on above: Order Comment: Test performed at:[facility] LaboratoryW.[facility], [address] [place] [address] Performed By: #### H ANGELOVAL ####MISTY NEL S ([id number]) HLA LAB ([facility])[address] [place] [address] HLA RESULTS For collection only. Normal [facility] Comment on above: Order Comment: Test performed at:[facility], [address] [place] [address] Performed By: #### H ANGELOVAL ####MISTY ANDERSENSPAN S ([id number]) HLA LAB ([facility])[address] [place] [address] HLA-A AND B AND C (class I) typing panel [facility] Comment on above: Order Comment: Test performed at:[facility], [address] [place] [address] Performed By: #### H ANGELOVAL ####MISTY NEL S ([id number]) HLA LAB ([facility])[address] [place] [address], [facility] HLA-DP2 Ql (Bld/Tiss) [facility] Comment on above: Order Comment: Test performed at:[facility] LaboratoryW.Geni Ordone[facility], [address] [place] [address] Performed By: #### H JOSEFIEVAL ####MISTY NEL S ([id number]) HLA LAB ([facility])[address] [place] [address], [facility] HLA-DQB1 High resolution Nom (Bld/Tiss) [facility] Comment on above: Order Comment: Test performed at:[facility] LaboratoryW.Geni [facility], [address] [place] [address] Performed By: #### H ANGELOVAL ####MISTY NEL S ([id number]) HLA LAB ([facility])[address] [place] [address] HLA-DRB1 High resolution Nom (Bld/Tiss) [facility] Comment on above: Order Comment: Test performed at:[facility] LaboratoryW.Geni [facility], [address] [place] [address] Performed By: #### H ANGELOVAL ####MISTY NEL S ([id number]) HLA LAB ([facility])[address] [place] [address], [facility] HLA TRANSPLANT ANTIBODY PANE Arturo 12-19-2024 HLA RESULTS See attached. [facility] Comment on above: Order Comment: Test performed at:[facility].Geni [facility], [address] [place] [address] Performed By: #### H ADITYA ####MISTY NEL S ([id number]) HLA LAB ([facility])[address] [place] [address], [facility] HLA-A+B+C (class I) Ab (S) [facility] Comment on above: Order Comment: Test performed at:[facility], [address] [place] [address] Performed By: #### H ADITYA ####MISTY Munoz ([id number]) HLA LAB ([facility])[address] [place], [place] [address] HLA-DP+DQ+DR (class II) Ab (S) Normal [facility] Comment on above: Order Comment: Test performed at:[facility], [address]th Yvxul45819 [place] [address] Performed By: #### H ADITYA ####MISTY Munoz ([id number]) [facility] LAB ([facility])[address] [place], [place] [address] HbA1c (Bld) [Mass fraction]o n 12-19-2024 Average glucose Estimated from glycated hemoglobin (Bld) [Mass/Vol] 148 mg/dL Normal Not Established [facility] Comment on above: Order Comment: Diagn osis of Diabetes-Adults Non-Diabetic: < or = 5.6% Increased risk for developing diabetes: 5.7-6.4% Diagnostic of diabetes: > or = 6.5% Performed By: #### 4 548-4 #### LEVI Garcia ([id number]) [facility] ([facility]) [address] [place] [address] Hemoglobin A1c/Hemoglobin.to juan 12-19-2024 HbA1c (Bld) [Mass fraction] 6.8 % High See comment [facility] Comment on above: Order Comment: Diagn osis of Diabetes-Adults Non-Diabetic: < or = 5.6% Increased risk for developing diabetes: 5.7-6.4% Diagnostic of diabetes: > or = 6.5% Performed By: #### 4 548-4 #### LEVI Garcia ([id number]) [facility] ([facility]) [address] [place] [address] Hepatic function 2000 panelo n 12-19-2024 Albumin BCP dye [Mass/Vol] 4.0 g/dL Normal 3.4-5.0 [facility] Comment on above: Performed By: #### 2 4325-3 #### LEVI Garcia ([id number]) [facility] ([facility]) [address] [place] [address] ALP [Catalytic activity/Vol] 160 U/L High 33-136 [facility] Comment on above: Performed By: #### 2 4325-3 #### LEVI Garcia ([id number]) [facility] ([facility]) [address] [place] [address] ALT With P-5'-P [Catalytic activity/Vol] 12 U/L Normal 7-45 [facility] Comment on above: Result Comment: Bea ents treated with Sulfasalazine may generate falsely decreased results for ALT. Performed By: #### 2 4325-3 #### LEVI Garcia ([id number]) [facility] ([facility]) [address] [place] [address] AST With P-5'-P [Catalytic activity/Vol] 22 U/L Normal 9-39 [facility] Comment on above: Performed By: #### 2 4325-3 #### LEVI Garcia ([id number]) [facility] ([facility]) [address] [place] [address] Bilirubin [Mass/Vol] 0.5 mg/dL Normal 0.0-1.2 [facility] Comment on above: Performed By: #### 2 4325-3 #### LEVI Garcia ([id number]) [facility] ([facility]) [address] [place] [address] Bilirubin.direct [Mass/Vol] 0.1 mg/dL Normal 0.0-0.3 [facility] Comment on above: Performed By: #### 2 4325-3 #### LEVI Garcia ([id number]) [facility] ([facility]) [address] [place] [address] Protein [Mass/Vol] 6.5 g/dL Normal 6.4-8.2 [facility] Comment on above: Performed By: #### 2 4325-3 #### LEVI Garcia ([id number]) [facility] ([facility]) [address] [place] [address] Hepatitis B virus core Abon 12-19-2024 HBV core Ab Ql (S) Non-Reactive Normal Nonreactive [facility] Comment on above: Performed By: #### 1 6933-4 ####LEVI Garcia ([id number])[facility] ([facility])[address] [place] [address] Hepatitis B virus surface Ab on 12-19-2024 HBV surface Ab Qn (S) 134.9 mIU/mL High <10.0 U [facility] Comment on above: Result Comment: Inte rpretive Criteria: <10 mIU/mL Nonreactive >=10 mIU/mL Reactive Biotin interference may cause falsely decreased results. Patients taking a Biotin dose of up to 5 mg/day should refrain from taking Biotin for 24 hours before sample collection. Providers may contact their local laboratory for further information. Performed By: #### 1 6935-9 ####LEVI Garcia ([id number])[facility] ([facility])[address] [place] [address] Hepatitis B virus surface Ag on 12-19-2024 HBV surface Ag IA Ql Non-Reactive Normal Nonreactive [facility] Comment on above: Result Comment: Biot in interference may cause falsely decreased results. Patients taking a Biotin dose of up to 5 mg/day should refrain from taking Biotin for 24 hours before sample collection. Providers may contact their local laboratory for further information. Performed By: #### 5 196-1 ####LEVI Garcia ([id number])[facility] ([facility])[address] [place] [address] Hepatitis C virus Abon 12-19 HCV Ab Ql (S) Non-Reactive Normal Nonreactive [facility] Comment on above: Result Comment: Resu lts from patients taking biotin supplements or receiving high-dose biotin therapy should be interpreted with caution due to possible interference with this test. Providers may contact their local laboratory for further information. Performed By: #### 1 6128-1 ####LEVI Garcia ([id number])[facility] ([facility])[address] [place] [address] LIPID PANEL NON-FASTINGon Cholesterol [Mass/Vol] 129 mg/dL Normal 0-199 [facility] Comment on above: Result Comment: Age Desirable [...] Performed By: #### L IPIN ####LEVI Garcia ([id number])[facility] ([facility])[address] [place] [address] Cholesterol in HDL [Mass/Vol] 68.8 mg/dL Normal [facility] Comment on above: Result Comment: Age Very Low Low Normal High 0-19 Y < 35 < 40 40-45 ---- 20-24 Y ---- < 40 >45 ---- >24 Y ---- < 40 40-60 >60 Performed By: #### L IPIN ####LEVI Garcia ([id number])[facility] ([facility])[address] [place] [address] CHOLESTEROL/HDL RATIO 1.9 Normal [facility] Comment on above: Result Comment: Ref Values Desirable < 3.4 High Risk > 5.0 Performed By: #### L IPIN ####LEVI Garcia ([id number])[facility] ([facility])[address] [place] [address] NON-HDL CHOLESTEROL 60 mg/dL Normal 0-149 [facility] Comment on above: Result Comment: Age Desiable Borderline High High Very High 0-19 Y 0 - 119 120 - 144 >/= 145 >/= 160 20-24 Y 0 - 149 150 - 189 >/= 190 ---- >24 Y 30 MG/DL ABOVE LDL CHOLESTEROL GOAL Performed By: #### L DANA ####LEVI Garcia ([id number])[facility] ([facility])[address] [place] [address] M. tuberculosis stim IFN-g a nd spot count panel (Bld)on 12-19-2024 Gamma interferon negative control spot count (Bld) [#] Passed Normal [facility] Comment on above: Performed By: #### 7 4281-7 ####QUEST CHANTL ([id number])80032 [place] M. tuberculosis stim IFN-g CFP10 Ag spot count (Bld) [#] 0 [facility] Comment on above: Performed By: #### 7 4281-7 ####QUEST CHANTL ([id number])13218 [place] M. tuberculosis stim IFN-g ESAT-6 Ag spot count (Bld) [#] 0 Normal [facility] Comment on above: Performed By: #### 7 4281-7 ####QUEST CHANTL ([id number])29645 [place] M. tuberculosis stim IFN-g Ql (Bld) [Interp] Negative Normal Negative [facility] Comment on above: Result Comment: A negative [...] quantitative test. Performed By: #### 7 4281-7 ####LAM VELEZLILY ([id number])72060 [facility], [place] Mitogen stimulated gamma interferon positive control spot count (Bld) [#] Passed [facility] Comment on above: Result Comment: For additional information, please refer to http://education.Moka5.com/faq/JKC519 (This link is being provided for informational/ educational purposes only.) Performed By: #### 7 4281-7 ####LAM PRIYANKA ([id number])90394 [place] NICOTINE AND METABOLITES,Son 12-19-2024 Cotinine [Mass/Vol] <5 Normal [facility] Comment on above: Performed By: #### N I+ME ####The Naked [employer] [facility] (JUAN ANTONIO) ([id number])[address] [place] [address] Nicotine [Mass/Vol] <5 Normal [facility] Comment on above: Result Comment: INTE RPRETIVE [...] developed and its performance characteristics determined by [employer]. It has not been cleared or approved by the [place] Food and Drug Administration. This test was performed in a CLIA certified laboratory and is intended for clinical purposes. Performed By: [employer] [address] [place] [address] Wastewater Plant Operator: Jhonathan Ortega MD, PhD CLIA Number: [id number] Performed By: #### N I+ME ####[facility]) ([id number])500 [place] [address] PT Coag (PPP) [Time]on 12-19 INR Coag (PPP) [Relative time] 0.9 Normal 0.9-1.1 [facility] Comment on above: Performed By: #### 5 902-2 ####LEVI Garcia ([id number])[facility] ([facility])[address] [place] [address] Phosphateon 12-19-2024 Phosphate [Mass/Vol] 2.9 mg/dL Normal 2.5-4.9 [facility] Comment on above: Result Comment: The performance characteristics of phosphorus testing in heparinized plasma have been validated by the individual laboratory site where testing is performed. Testing on heparinized plasma is not approved by the FDA; however, such approval is not necessary. Performed By: #### 2 777-1 #### LEVI Garcia ([id number]) [facility] ([facility]) [address] [place] [address] Treponema pallidum Ab.IgG+Ig Mon 12-19-2024 T. pallidum IgG+IgM IA Ql (S) Non-Reactive Normal Nonreactive [facility] Comment on above: Result Comment: No s ignificant level of Treponema pallidum antibody detected. Repeat testing in 2 to 4 weeks may be considered if early infection or incubating syphilis infection is suspected. Performed By: #### 4 7236-5 ####LEVI Garcia ([id number])[facility] ([facility])[address] [place] [address]32 Urea nitrogenon 12-19-2024 Urea nitrogen [Mass/Vol] 21 mg/dL Normal 6-23 [facility] Comment on above: Performed By: #### 3 094-0 #### LEVI Garcia ([id number]) [facility] ([facility]) [address] [place] [address] VZV IgG IA Ql (S)on 12-20-19 VARICELLA ZOSTER IGG INDEX 4.2 IA High <=0.8 [facility] Comment on above: Order Comment: NEGAT SAMIA: [...] Performed By: #### 1 5410-4 ####LEVI Garcia ([id number])[facility] ([facility])[address] [place] [address] Varicella zoster virus Ab.Ig Jeison 12-19-2024 VZV IgG IA Ql (S) Positive Abnormal Negative [facility] Comment on above: Order Comment: NEGAT [...] Performed By: #### 1 5410-4 ####LEVI Garcia ([id number])[facility] ([facility])[address] [place], [place] [address] Asiya 12-17-2024 CNPN Telephone (PODCCP) -- SANDY BHATTI ([id number]) 1965 F Date Time Provider Department 12/17/24 MALDONADO RAZA PODCCP During your visit today, we recorded the following information about you: Marek Garcia 12/17/2024 10:36 AM Signed Reason for call: Mr.s sandy Bhatti called and he would like to schedule an appointment with DR lozada and her scan?? Contact Name (if not the patient) Home and cell number [phone] Diagnosis Fistula gram Kind Regards Marek Garcia [place] Qu[facility] Bullock 12/18/2024 11:03 AM Signed Patient states that the [facility] is in need of something to be faxed to them for a fistulogram? (She wasn't too clear on what this request is for). [place] Qu[facility] Bullock 12/18/2024 11:05 AM Signed scheduled Lakshmi Davies [...] Status:Closed by MAREK GARCIA on 12/17/[address] [facility] CNOVon 12-05-2024 CNOV Office Visit (INTMWS ) -- SANDY BHATTI ([id number]) 1965 F Date Time Provider Department 12/05/24 9:20 AM MALDONADO RAZA INTMWS During your visit today, we recorded the following information about you: Temperature Pulse Blood pressure Weight 98.1 degrees 68/minute 124/64 61.1 kg Maldonado Raza MD 12/05/2024 10:46 AM Signed This note was created using So[employer]. Subjective Patient presents with: 5 month follow-up Sandy Bhatti is a 59 year old female. She was doing reasonably well. Her diabetes mellitus was labile. Hypertension was controlled. ESRD was managed with dialysis. Migraines were infrequent. She is scheduled with [facility] for uveitis. Review of Systems Constitutional: [...] is pres (more content not included)... Normal [facility] 12-05-2024 [facility] Telephone (INTMWS) -- SANDY BHATTI ([id number]) 1965 F Date Time Provider Department 12/05/24 MALDONADO RAZA INTWS During your visit today, we recorded the following information about you: Chris Pierce, RN 12/05/2024 11:05 AM Signed [facility] phoned to let pcp know- they quit making levemir. [facility] pcp can order Lantus, Toujeo, [...] without aura, (more content not included)... Normal [facility] DBT Breast - bilateral diagn ostic [...] Rianna Galaviz M.D. Electronically signed on: 12/03/2024 Yoker: ANSLEY Transcribe Date/Time: Dec 03 2024 1:02P Dictated by: RIANNA GALAVIZ MD This examination was interpreted and the report reviewed and electronically signed by: RIANNA GALAVIZ MD on Dec 03 2024 2:01PM [facility] DIVISION OF RADIOLOGY * * *Final Report* * * DATE OF EXAM: Dec 03 2024 1:29PM KEVIN 0627 - K[place]NAL [place] / PROCEDURE REASON: Abnormal screening mammogram * * * * Physician Interpretation * * * * RESULT: [place] [address] [place] [address] #[id number] - KUNAL KIRBY #[id number] - [employer] BREAST LTD LT HISTORY: 59 year-old patient [...] the imaged area. DIVISION OF RADIOLOGY Provider, [facility] - 12/03/2024 * * *Final Report* * * DATE OF EXAM: Dec 03 2024 1:29PM W 0627 - KUNAL JASON3GuppiesO KOFI / PROCEDURE REASON: Abnormal screening mammogram * * * * Physician Interpretation * * * * RESULT: [facility] [place] [address] #[id number] - [employer] KOFI #[id number] - [employer] BREAST [employer] LT HISTORY: 59 year-old patient seen for [...] Rianna Galaviz M.D. Electronically signed on: 12/03/2024 Yoker: ANSLEY Transcrimichael Date/Time: Dec 03 2024 1:02P Dictated by: RIANNA GALAVIZ MD This examination was interpreted and the report reviewed and electronically signed by: RIANNA GALAVIZ MD on Dec 03 2024 2:01PM [facility] KUNAL Hamm 2024 KUNAL KIRBY * * *Final Report* * * DATE OF EXAM: Dec 03 2024 1:29PM [facility] 0627 - KUNAL KIRBY / PROCEDURE REASON: Abnormal screening mammogram * * * * Physician Interpretation * * * * RESULT: [facility] [address] [id number] #[id number] - MAM CAM[place] KIRBY #[id number] - [facility] US BREAST LTD LT HISTORY: 59 [...] Rianna Galaviz M.D. Electronically signed on: 12/03/2024 Yoker: ANSLEY Transcribe Date/Time: Dec 03 2024 1:02P Dictated by: RIANNA GALAVIZ MD This examination was interpreted and the report reviewed and electronically signed by: RIANNA GALAVIZ MD on Dec 03 2024 2:01PM EST [id number] Normal [facility] US BREAST LTD LTon 12-03 [facility] US BREAST LTD LT * * *Final Report* * * DATE OF EXAM: Dec 03 2024 1:50PM WRU 0593 - [facility] US BREAST LTD LT / PROCEDURE REASON: Abnormal screening mammogram * * * * Physician Interpretation * * * * [place] [address] #[id number] - [facility] DIAG W [place] KOFI #[id number] - [facility] US BREAST LTD LT HISTORY: 59 [...] Rianna Galaviz M.D. Electronically signed on: 12/03/2024 Yoker: ANSLEY Transcrimichael Date/Time: Dec 03 2024 1:43P Dictated by : RIANNA GALAVIZ MD This examination was interpreted and the report reviewed and electronically signed by: RIANNA GALAVIZ MD on Dec 03 2024 2:01PM EST [id number] Normal [facility] No Panel InformationOrdered By: Cc Provider on 12-03-2024 [facility] No Panel Informationon 12-03 Radiology Study observation (narrative) [facility] US Breast - left limitedon 0 12-03-2024 [...] Rianna Galaviz M.D. Electronically signed on: 12/03/2024 Yoker: ANSLEY Transcribe Date/Time: Dec 03 2024 1:43P Dictated by : RIANNA GALAVIZ MD This examination was interpreted and the report reviewed and electronically signed by: RIANNA GALAVIZ MD on Dec 03 2024 2:01PM [facility] DIVISION OF RADIOLOGY * * *Final Report* * * DATE OF EXAM: Dec 03 2024 1:50PM [facility] [place] 0593 Diaferon BREAST LTD LT / PROCEDURE REASON: Abnormal screening mammogram * * * * Physician Interpretation * * * * [place] [address] #[id number] - [facility] [place] #[id number] - [facility] [employer] BREAST LTD LT HISTORY: 59 year-old patient [...] the imaged area. DIVISION OF RADIOLOGY Provider, [facility] - 12/03/2024 * * *Final Report* * * DATE OF EXAM: Dec 03 2024 1:50PM [facility] [place] 0593 Diaferon BREAST LTD LT / PROCEDURE REASON: Abnormal screening mammogram * * * * Physician Interpretation * * * * [place] [address] [place] [address] #[id number] - [facility] [place] #[id number] - [facility] US BREAST LTD LT HISTORY: 59 [...] Rianna Galaviz M.D. Electronically signed on: 12/03/2024 Yoker: ANSLEY Transcribe Date/Time: Dec 03 2024 1:43P Dictated by : RIANNA GALAVIZ MD This examination was interpreted and the report reviewed and electronically signed by: RIANNA GALAVIZ MD on Dec 03 2024 2:01PM EST [facility] MR CARDIAC MORPHOLOGY AND FU NCTION W [...] organ transplant status,I25.10 Atherosclerotic heart disease of [place] coronary artery without angina pectoris COMPARISON: Echocardiography dated 09/18/2023 ACCESSION NUMBER(S): [id number] ORDERING CLINICIAN: MURTAZA CASTELLON TECHNIQUE: Siemens 1.5 [...] 3. Norm (more content not included)... Normal [facility] MR Heart WO and W contrast I [...] Kelvin French 11/26/2024 12:04 PM Dictation workstation: [id number] MMODAL Interpreted By: Kelvin Joshi, STUDY: [...] organ transplant status,I25.10 Atherosclerotic heart disease of [place] coronary artery without angina pectoris COMPARISON: Echocardiography dated 09/18/2023 ACCESSION NUMBER(S): [id number] ORDERING CLINICIAN: MURTAZA CASTELLON TECHNIQUE: Siemens 1.5 [...] organ transplant status,I25.10 Atherosclerotic heart disease of [place] coronary artery without angina pectoris COMPARISON: Echocardiography dated 09/18/2023 ACCESSION NUMBER(S): [id number] ORDERING CLINICIAN: MURTAZA CASTELLON TECHNIQUE: Siemens 1.5 [...] an infiltrative process. (more content not included)... [facility] Work Phone: Radiology Study observation (narrative) [facility] Work Phone: MR Heart WO and W contrast I VOrdered By: Kelvin French on 11-26-2024 [facility] Work Phone: US.doppler Carotid arteries - bilateralon 07-25-2024 [place] [address] and Vascular Lab Report VASC US CAROTID ARTERY DUPLEX BILATERAL Patient Name: SANDY HUAN BHATTI Reading Physician: [id number] Justin Berg DO Study Date: 07/25/2024 Ordering Physician: [id number] ROLY FONTANA MRN/PID: [id number] Technologist: Lilliam Mcfarlane RVT Technologist 2: Date of /Age: 5 1965 / 59 years Gender: F Admission Status: Outpatient Location Performed: [facility] Diagnosis/ICD: Other specified symptoms and signs involving the circulatory and respiratory systems-R09.89; Encounter for other preprocedural examination-Z01.818 Indication: Pre-operative exam CPT Codes: 62757 Cerebrovascular Carotid Duplex scan complete CONCLUSIONS: Right [...] cm/s Right Left ICA/CCA Ratio 1.1 2.4 Chaim Berg DO Final Jutsin Moreno DO - 07/25/2024 [place] [address] and Vascular Lab Report VASC US CAROTID ARTERY DUPLEX BILATERAL Patient Name: SANDY PRESSLEY MAGY Reading Physician: [id number] Berg DO Study Date: 07/25/2024 Ordering Physician: [id number] ROLY FONTANA MRN/PID: [id number] Technologist: Lilliam Mcfarlane RVT Technologist 2: Date of /Age: 5 1965 / 59 years Gender: F Admission Status: Outpatient Location Performed: [facility] Diagnosis/ICD: Other specified symptoms and signs involving the circulatory and respiratory systems-R09.89; Encounter for other preprocedural examination-Z01.818 Indication: Pre-operative exam CPT Codes: 70431 Cerebrovascular Carotid Duplex scan complete CONCLUSIONS: Right [...] cm/s Right Left ICA/CCA Ratio 1.1 2.4 33401 Justin Berg DO Final [facility] Work Phone: Radiology Study observation (narrative) [facility] Work Phone: US.doppler Carotid arteries - bilateralOrdered By: Justin Berg on 07-25-2024 [facility] Work Phone: [facility] US CAROTID ARTERY DUPLE X BILATERALon 07-25-2024 [facility] US CAROTID ARTERY DUPLEX BILATERAL [place] [address] and Vascular Lab Report [facility] US CAROTID ARTERY DUPLEX BILATERAL Patient Name: SANDY BHATTI Reading Physician: [id number] Justin Berg DO Study Date: 07/25/2024 Ordering Physician: [id number] FONTANA MRN/PID: [id number] Technologist: Lilliam Mcfarlane RVT Technologist 2: Date of /Age: 5 1965 / 59 years Gender: F Admission Status: Outpatient Location Performed: [facility] Diagnosis/ICD: Other specified symptoms and signs involving the circulatory and respiratory systems-R09.89; Encounter for other preprocedural examination-Z01.818 Indication: Pre-operative exam CPT Codes: 26128 Cerebrovascular Carotid Duplex scan complete CONCLUSIONS: Right [...] cm/s Right Left ICA/CCA Ratio 1.1 2.4 14086 Justin Berg DO Final Normal [facility] ECG 12-LEADon 07-23-2024 ECG 12-LEAD Ventricular Rate 82 Atrial Rate 82 P-R Interval 154 QRS Duration 136 Q-T Interval 434 QTC Calculation(Bazett) 507 P Potosi -9 R Potosi -43 T Potosi 104 QRS Count 13 Q Onset 208 P Onset 131 P Offset 183 T Offset 425 QTC [place] 481 Diagnosis Normal sinus rhythm Left axis deviation Right bundle branch block Left ventricular hypertrophy with QRS widening and repolarization abnormality Abnormal ECG When compared with ECG of 16-APR-2024 11:05, No significant change was found Confirmed by Jigar Morris ([id number]) on 08/20/2024 8:59:[address] [facility] CT CARDIAC SCORING WO IV CON TRASTon 07-11-2024 CT CARDIAC SCORING WO IV CONTRAST Interpreted By: Donavon Morton, STUDY: CT CARDIAC SCORING WO IV CONTRAST; 07/11/2024 3:31 pm INDICATION: Signs/Symptoms:pre kidney transplant evaluation. COMPARISON: CT of the chest of 04/16/2024 ACCESSION NUMBER(S): [id number] ORDERING CLINICIAN: ROLY FONTANA TECHNIQUE: Using prospective [...] coronary heart disease events. According to the [employer] [employer] Clinical Expert Consensus [...] Donavon Morton 07/16/2024 5:46 PM Dictation workstation: [id number] [facility] SCREENINGon 07-11-2024 [facility] SCREENING * * *Final Report* * * DATE OF EXAM: Jul 11 2024 9:46AM [facility] 0581 - [facility] SCREENING / PROCEDURE REASON: Encounter for screening mammogram for breast cancer * * * * Physician Interpretation * * * * RESULT: [place] [address] HISTORY: Patient is 59 years old and [...] Peng Torres M.D. Electronically signed on: 07/12/2024 Yoker: ANSLEY Transcribe Date/Time: Jul 11 2024 9:24A Dictated by: PENG TORRES MD This examination was interpreted and the report reviewed and electronically signed by: PENG TORRES MD on Jul 12 2024 11:46AM EST [id number] Normal [facility] CNOVon 07-10-2024 CNOV Office Visit (VASSMN ) -- SANDY BHATTI ([id number]) 1965 F Date Time Provider Department 07/10/24 2:45 PM LUNA THOMAS VASN During your visit today, we recorded the following information about you: Luna Thomas MD 07/10/2024 4:21 PM Signed [facility] [place] DEPARTMENT OF VASCULAR SURGERY OUTPATIENT VISIT DATE [...] colic 06/12/2007 Secondary hyperparathyroidism of renal origin ([facility]) 06/20/2023 Steal syndrome dialysis vascular access ([facility]) 05/17/2019 Thyroid disorder TIA (transient ischemic attack) [...] COLONOSCOPY SCREENING 11/15/2022 COLOSTOMY/SKIN LEVEL CECOSTOMY 2007 [id number], reversed 2006 CREATION OF AVF, PERCUTANEOUS USING [...] daily. ciprofl (more content not included)... Normal [facility] A/V FISTULA GRAFT UNL VAS LABon 07-10-2024 US A/V FISTULA GRAFT UNL VAS LAB Non-Invasive Vascular Laboratory [facility] F30 Upper Extremity Arterial Duplex Unilateral - [...] physician: Jaylyn Fortune MD, RPVI Final CC [facility] [facility] : [id number] [email or web address] See Link below for Image Normal [facility] CNOVon 06-13-2024 CNOV Office Visit (INTMWS ) -- SANDY BHATTI ([id number]) 1965 F Date Time Provider Department 06/13/24 3:00 PM MALDONADO RAZA INTMWS During your visit today, we recorded the following information about you: Temperature Weight Height 97.1 degrees 67.6 kg 1.59 m Maldonado Raza MD 06/13/2024 4:25 PM Signed Sandy Bhatti is a 59 year old [...] PCP - General (Internal Medicine) Dr. Miladys Shelton [place] trench shovel operator. Dr. Luna Thomas, vascular surgery. [facility], Gynecology. Byron Day MD as Referring (Ophthalmology) Dr. Dave Pickett, Cardiology. Dr. Héctor Cruz, Ophthalmology. Helen Cuellar APRN, MICHELLE, Gynecology. MICKEYITA for dialysis. Medical/Family history review Reviewed and [...] PM Signed This note was created using PurePlayriter. Subjective Sandy Bhatti is a 59 year old female. She missed dialysis yesterday due to migraines. She took Imitrex which helped. She had residual lightheadedness today. Her hypertension was difficult and labile. She typically held her blood pressure medications for the morning of dialysis. She had a cough for one month, but was scheduled for a chest xray at [facility] where she is being evaluated for transplant. [...] 1 ta (more content not included)... Normal [facility] CNOVon 06-11-2024 CNOV Office Visit (KIRILL ) -- SANDY BHATTI ([id number]) 1965 F Date Time Provider Department 06/11/24 7:00 AM MANDIE YOUNGER During your visit today, we recorded the following information about you: Pulse Blood pressure Weight Height 78/minute 136/68 67.7 kg 1.6 m Mandie Younger APRN.SCREW MACHINE OPERATOR SWISS TYPE 06/11/2024 7:45 AM Signed [facility] Department of Cardiology Referring Provider: No ref. provider found Date: June 11, 2024 Chief Complaint: Congestive heart failure, unspecified HF chronicity, unspecified heart failure type ([facility]) Subjective: Sandy Bhatti is a 59 year old female who presents as an established patient for coronary artery disease and heart failure assessment management. History of arteriosclerotic vascular disease and hypertension. Patient is a dialysis patient with [facility], Muqgfb-Qlhfxjbox-Srviafj. Patient has a right upper arm fistula. ALLERGIES Allergen Reactions Codeine GI Upset Latex Hives 2005 had reaction after surgery Penicillins Swelling Chlorhexidine Rash PAST MEDICAL HISTORY: PAST MEDICAL HISTORY Diagnosis Date Acute kidney failure (HCC) 01/14/2018 Anxiety Arterial steal syndrome ([facility]) 12/2018 Left AVF Calculus of ureter 06/12/2007 CKD (chronic kidney disease) stage V requiring chronic dialysis ([facility]) 03/01/2018 Dr. Pendleton, nephrology. Congestive heart failure (HCC) Constipation Depression 09/04/2006 Encounter for screening for stenosis of carotid artery 03/27/2023 Less then 50% calcification bilaterally. ESRD on dialysis ([facility]) 05/16/2019 GERD (gastroesophageal reflux disease) Hemorrhoids History [...] COLONOSCOPY SCREENING 11/15/2022 COLOSTOMY/SKIN LEVEL CECOSTOMY 2007 [id number], reversed 2006 CREATION OF AVF, PERCUTANEOUS USING [...] lung cancer Coronary Artery Disease Brother dec. [place] 57 y.o. 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 [facility] ECG COMPLETEon 06-11-2024 ECG COMPLETE Ventricular Rate : 7 8 BPM Atrial Rate : 78 BPM P-R Interval : 166 ms QRS Duration : 140 ms Q-T Interval : 444 ms QTC Calculation(Bazett) : 506 ms Calculated P Potosi : 59 degrees Calculated R Potosi : -50 degrees Calculated T Pot[place] : 104 degrees Normal sinus rhythm Right bundle branch block Left anterior fascicular block Bifascicular block Left ventricular hypertrophy with repolarization abnormality Confirmed by DAVE PICKETT DO ([id number]) on 06/16/2024 7:02:00 PM NAME : SANDY BHATTI PID : [id number] : 1965 Gender : Female Race : ORD : [id number] Procedure Date : Jun 11 2024 07:07:23 Edit Date : Jun 16 2024 19:02:06 Diagnosis: Normal sinus rhythm Right bundle branch block Left anterior fascicular block Bifascicular block Left ventricular hypertrophy with repolarization abnormality Confirmed by DAVE PICKETT DO ([id number]) on 06/16/2024 7:02:00 PM Test Reason : HCS Location : 2 : [place] Overread By : DAVE PICKETT DO Edited By : DAVE PICKETT DO Referred By : , Acquired by : , [facility] ([id number]) 1965 F Date Time Provider Department 06/04/24 CHRISTOPHER SNELL During your visit today, we recorded the [...] be sending notes over for review. Krys Lakhani RN 06/05/2024 6:31 AM Signed We can see them 07/11 at 9 am. Thanks, Alissa Celsa Chung 06/05/2024 10:04 AM Signed She said she has other appts that day but that are good for her since she has dialysis on . Is there another she can be seen instead? Krys Lakhani RN 06/05/2024 10:19 AM Signed 08/08 at 2:30. Alissa Celsa Chung 06/05/2024 10:38 AM Signed I spoke with [...] Date Reviewed: 06/02/2024 Reviewed by: Mandie Younger APRN.SCREW MACHINE OPERATOR SWISS TYPE - Fully Assessed Reason for Visit: Appointment [...] 06/21/2023 [place] (more content not included)... Normal [facility] ANES POSTPROC EVALon 024 ANES POSTPROC EVAL HNO ID: [id number] Author: LUIS BURGOS MD Service: ? Author Type: Anesthesiologist Type: Anesthesia Postprocedure Evaluation Filed: 05/16/2024 22:14 Note Text: POST ANESTHESIA EVALUATION NOTE : 1965 Procedure Summary Date: 05/16/24 Room / Location: [facility] / [facility] AND [facility] Anesthesia Start: 1503 Anesthesia Stop: 174 Procedure: VENOGRAM EXTREMITY UPPER (Right) Diagnosis: Swelling of right upper extremity (Swelling of right upper extremity [M79.89]) Surgeons: Luna Thomas MD Responsible Provider: Luis Burgos MD Anesthesia Type: general ASA Status: 3 Anesthesia Type: general Last Vitals Vitals Value Taken Time BP 144/69 05/16/241999 Temp 36.5 ?C (97.7 ?F) 05/16/241739 Pulse 86 05/16/241999 Resp 25 05/16/241999 SpO2 [...] May 16, 2024 TIME: 10:11 PM CSN: [id number] Normal [facility] ANES PRE-OPon 05-16-2024 ANES PRE-OP HNO ID: [id number] Author: LUIS BURGOS MD Service: ? Author Type: Anesthesiologist Type: Anesthesia Preprocedure Evaluation Filed: 05/16/2024 15:04 Note Text: ANESTHESIOLOGY DAY OF SURGERY NOTE : 1965 Procedure Information Anesthesia Start Date/Time: 05/16/24 150 Procedure: VENOGRAM EXTREMITY UPPER (Right) Location: [facility] / [facility] Surgeons: Luna Thomas MD [...] May 16, 2024 TIME: 3:04 PM CSN: [id number] Normal [facility] BRIEF OP NOTon 05-16-2024 BRIEF OP NOT HNO ID: [id number] Author: ARTHUR DE OLIVEIRA MD Service: Vascular Surgery Author Type: Resident Type: Brief Op Note Filed: 05/16/2024 17:10 Note Text: BRIEF OPERATIVE / PROCEDURE NOTE LOG ID: [id number] Surgery/Procedure Date: 05/16/2024 Incision/Procedure Start Time: 4:06 PM Incision Close/Procedure End Time: 4:59 PM Surgeon(s)/Proceduralist(s ) and Transportation Analyst(s): Surgeons and Role: * Luna Thomas MD - Primary * Arthur De Oliveira MD - Resident - Assisting * Vilma Coffey DPM - Resident - Assisting No Additional Staff Procedure(s): Right arm fistulogram and central venogram 8x80 electric serviceman CLINICAL LABORATORY AIDES TEACHER of SCV-innominate 10x80 fluency stent of SCV-innominate Post dilation with 8x80 electric serviceman and 8x60 conquest balloon IVUS ROBERTA Angio: [...] May 16, 2024 TIME: 5:05 PM Normal [facility] Gas and Carbon monoxide pane l (BldV)on 05-16-2024 Base excess Calc (BldV) [Moles/Vol] 7 mmol/L High 0-[address] [facility] Comment on above: Order Comment: Speci men Type: VENOUS BLOOD SPECIMENOrdering Facility: [facility] Address: [address] [place] [address] Performed By: #### 2 4344-4 ####[facility] [id number] [place] [address] [place] Body temperature 98.6 [degF] Normal [facility] Comment on above: Order Comment: Speci men Type: VENOUS BLOOD SPECIMENOrdering Facility: [facility] Address: [address] [place] [address] Performed By: #### 2 4344-4 ####[facility] [id number] [place] [address] [place] Calcium.ionized (Bld) [Mass/Vol] 1.21 mmol/L Normal 1.08-1.[address] [facility] Comment on above: Order Comment: Speci men Type: VENOUS BLOOD SPECIMENOrdering Facility: [facility] Address: [address] [place] [address] Performed By: #### 2 4344-4 ####[facility] [id number] [place] [address] [place] Calcium.ionized adjusted to pH 7.4 (BldA) [Moles/Vol] 1.22 mmol/L Normal 1.08-1.[address] [facility] Comment on above: Order Comment: Speci men Type: VENOUS BLOOD SPECIMENOrdering Facility: [facility] Address: [address] [place] [address] Performed By: #### 2 4344-4 ####[facility] [id number] [place] [address] [place] Carboxyhemoglobin (BldV) [Mass fraction] 2.2 % High 0.0-2.[address] [facility] Comment on above: Order Comment: Speci men Type: VENOUS BLOOD SPECIMENOrdering Facility: [facility] Address: [address] [place] [address] Result Comment: Carb oxyhemoglobin Reference Range for Smokers: 2.0-8.0% Performed By: #### 2 4344-4 ####[facility] [id number] [place] [address] [place] CO2 (BldV) [Partial pressure] 53 mm[Hg] Normal 42-[address] [facility] Comment on above: Order Comment: Speci men Type: VENOUS BLOOD SPECIMENOrdering Facility: [facility] Address: [address] [id number] Performed By: #### 2 4344-4 ####[facility] [id number] [address] [address] [place] Glucose [Mass/Vol] 246 mg/dL High 60-105 [facility] Comment on above: Order Comment: Speci men Type: VENOUS BLOOD SPECIMENOrdering Facility: [facility] Address: [address] [place] [address] Performed By: #### 2 4344-4 ####[facility] [id number] [place] [address] [place] HCO3 (Bld) [Moles/Vol] 33 mmol/L High 24-[address] [facility] Comment on above: Order Comment: Speci men Type: VENOUS BLOOD SPECIMENOrdering Facility: [facility] Address: [address] [place] [address] Performed By: #### 2 4344-4 ####[facility] [id number] [place] [address] [place] Hematocrit (Bld) [Volume fraction] 36.5 % Normal 36.0-46.[address] [facility] Comment on above: Order Comment: Speci men Type: VENOUS BLOOD SPECIMENOrdering Facility: [facility] Address: [address] [place] [id number] Performed By: #### 2 4344-4 ####[facility] [id number] [place] [address] [place] Hemoglobin (Bld) [Mass/Vol] 11.8 g/dL Normal 11.5-15.[address] [facility] Comment on above: Order Comment: Speci men Type: VENOUS BLOOD SPECIMENOrdering Facility: [facility] Address: [address] [place] [address] Performed By: #### 2 4344-4 ####[facility] [id number] [place] [address] [place] Lactate [Moles/Vol] 1.6 mmol/L Normal 0.5-2.2 [facility] Comment on above: Order Comment: Speci men Type: VENOUS BLOOD SPECIMENOrdering Facility: [facility] Address: [address] [place] [address] Performed By: #### 2 4344-4 ####[facility] [id number] [place] [address] [place] Methemoglobin (Bld) [Mass fraction] 0.7 % Normal 0.0-1.[address] [facility] Comment on above: Order Comment: Speci men Type: VENOUS BLOOD SPECIMENOrdering Facility: [facility] Address: [address] [place] [address] Performed By: #### 2 4344-4 ####[facility] [id number] [place] [address] [place] O2 THERAPY RA=Room Air Normal [facility] Comment on above: Order Comment: Speci men Type: VENOUS BLOOD SPECIMENOrdering Facility: [facility] Address: [address] [place] [address] Result Comment: 98 Performed By: #### 2 4344-4 ####[facility] [id number] [place] [address] [place] Oxygen (BldV) [Partial pressure] 40 mm[Hg] Normal 35-[address] [facility] Comment on above: Order Comment: Speci men Type: VENOUS BLOOD SPECIMENOrdering Facility: [facility] Address: [address] [place] [address] Performed By: #### 2 4344-4 ####[facility] [id number] [place] [id number] [place] Oxygen saturation in Venous blood 75 % Normal 60-[address] [facility] Comment on above: Order Comment: Speci men Type: VENOUS BLOOD SPECIMENOrdering Facility: [facility] Address: [address] [place] [address] Performed By: #### 2 4344-4 ####[facility] [id number] [address] [address] [place] Oxyhemoglobin (BldV) [Mass fraction] 73 % Normal 60-[address] [facility] Comment on above: Order Comment: Speci men Type: VENOUS BLOOD SPECIMENOrdering Facility: [facility] Address: [address] [place], [place] [address] Performed By: #### 2 4344-4 ####[facility] [id number] [address] [address] [place] pH (BldV) 7.40 [pH] Normal 7.32-7.[address] [facility] Comment on above: Order Comment: Speci men Type: VENOUS BLOOD SPECIMENOrdering Facility: [facility] Address: [address] [place], [place] [address] Performed By: #### 2 4344-4 ####[facility] [id number] [place] [id number] [place] Potassium [Moles/Vol] 4.8 mmol/L Normal 3.5-5.0 [facility] Comment on above: Order Comment: Speci men Type: VENOUS BLOOD SPECIMENOrdering Facility: [facility] Address: [address] [place] [address] Performed By: #### 2 4344-4 ####[facility] [id number] [place] [id number] [place] Sodium [Moles/Vol] 138 mmol/L Normal 136-144 [facility] Comment on above: Order Comment: Speci men Type: VENOUS BLOOD SPECIMENOrdering Facility: [facility] Address: [address] [place] [address] Performed By: #### 2 4344-4 ####[facility] [id number] [facility] [facility] [address] [id number] [place] OPERATIVE NOon 05-16-2024 OPERATIVE NO HNO ID: [id number] Author: LUNA THOMAS MD Service: Vascular Surgery Author Type: Physician Type: Operative Report Filed: 05/22/2024 13:28 Note Text: [facility] - Operative Report [id number] [id number] [place] SANDY BHATTI : 1965 AGE: 59. 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 POSTOPERATIVE DIAGNOSIS: Right arm swelling with central vein stenosis, end-stage renal disease, hypertension. SURGEON: Luna Thomas M.D. SUPERVISOR SLITTING [employer] SHIPPING: Sheila. SURGERY/PROCEDURE: 1. Direct access to right [...] was performed with a micropuncture upsized to 8-Spanish sheath. Working through the 8-Spanish sheath, we passed the catheter wire across [...] stenosis near total occlusion. Luna Thomas M.D. LK:[id number] /[id number] Normal [facility] Heart Perfusion W stress and W radionuclide Rhoda 04-16-2024 1. No evidence of is chemia or prior infarction. 2. The left ventricle is normal in size. 3. Normal LV wall motion with an LV EF estimated at 60%. I personally reviewed the images/study and I agree with the findings as stated. This study was interpreted at [place], [place]. Signed by: Ab Gary 04/16/2024 2:27 PM Dictation workstation: [id number] Interpreted By: Ab Gerber and Rana Mariam STUDY: NUCLEAR STRESS TEST; 04/16/2024 1:49 pm INDICATION: Signs/Symptoms:pre-kidney transplant evaluation for kidney transplant. COMPARISON: None. ACCESSION NUMBER(S): [id number] ORDERING CLINICIAN: ROLY FONTANA TECHNIQUE: DIVISION OF [...] with an LV EF estimated at 60%. [facility] Ab Gary MD - 04/16/2024 Interpreted By: Ab Gary and Rana Mariam STUDY: NUCLEAR STRESS TEST; 04/16/2024 1:49 pm INDICATION: Signs/Symptoms:pre-kidney transplant evaluation for kidney transplant. COMPARISON: None. ACCESSION NUMBER(S): [id number] ORDERING CLINICIAN: ROLY FONTANA TECHNIQUE: DIVISION OF [...] as stated. This study was interpreted at [place], [place]. Signed by: Ab Gary 04/16/2024 2:27 PM Dictation workstation: [id number] [facility] Work Phone: Radiology Study observation (narrative) [facility] Work Phone: [place] Heart Perfusion W stress and W radionuclide IVOrdered By: Ab Gary on 04-16-2024 [facility] Work Phone: No Panel Informationon 04-16 [facility], [address] [place] [address], [address], [place], [place] [address] and Nuclear Pharmacologic Stress Test Patient Name: SANDY BHATTI Ordering Provider: [id number] ROLY FONTANA Study Date: 04/16/2024 Reading Physician: [id number] Raymon Angel MD MRN/PID: [id number] Supervising Physician: Fellow: Date of /Age: 5 1965 / 59 years Fellow: Gender: F Nurse: Inna Norris RN, CVRN- Admit Date: 04/16/2024 Hoist Mechanic: Admission Status: Outpatient Nanny Caregiver: N/A Height: 160.02 cm Technologist: Xin Oliveira Weight: 67.59 kg Additional Staff: BSA: 1.71 m2 BMI: 26.39 kg/m2 Patient Location: [facility] Study Type: CARDIOLOGY INTERPRETATION OF NUCLEAR STRESS Diagnosis/ICD: Encounter for other preprocedural examination-Z01.818; Atherosclerotic heart disease-I25.10 Indication: Pre-Op Evaluation CPT Code: Stress Test Interpretation-09898; Stress Test Supervision-77054 Falls Risk: Low: Patient has a low [...] 78 170 69 +--+------+-------+------- + 83 955 62 7359 minute, 0.4mg IV Lexiscan given, no symptoms +--+------+-------+------- + 88 985 46 2228 minutes, no symptoms +--+------+-------+------- + Recovery ECG: Recovery ECG showed normal sinus rhythm, with no abnormal findings. The heart rate recovery was normal. + +--+------+-- -----+ -----+ HR Sys BP Miller BP Comments + +--+------+-- -----+ -----+ Recovery I 90 519 93 1213 minute, no symptoms + +--+------+-- -----+ -----+ Recovery II 90 830 08 2793 minutes, no symptoms + +--+------+-- -----+ -----+ Recovery III 91 428 95 9636 minutes, no symptoms + +--+------+-- -----+ -----+ Recovery IV 88 036 28 1252 minutes, no symptoms + +--+------+-- -----+ -----+ Summary: 1. No clinical evidence for ischemia at a maximal infusion. 2. This exercise test is indeterminate because of an abnormal baseline ECG. 3. Nuclear image results are reported separately. [id number] Raymon Angel MD Electronically signed on 04/16/2024 at 12:45:38 PM Final Raymon Amin MD PhD - 04/16/2024 [facility], [address] [place] [address], [address], [place] [address] and Nuclear Pharmacologic Stress Test Patient Name: SANDY BHATTI Ordering Provider: [id number] ROLY FONTANA Study Date: 04/16/2024 Reading Physician: [id number] Raymon Angel MD MRN/PID: [id number] Supervising Physician: Fellow: Date of /Age: 5 1965 / 59 years Fellow: Gender: F Nurse: Inna Norris RN, CVRN- Admit Date: 04/16/2024 Hoist Mechanic: Admission Status: Outpatient Nanny Caregiver: N/A Height: 160.02 cm Technologist: Xin Oliveira Weight: 67.59 kg Additional Staff: BSA: 1.71 m2 BMI: 26.39 kg/m2 Patient Location: [facility] Study Type: CARDIOLOGY INTERPRETATION OF NUCLEAR STRESS Diagnosis/ICD: Encounter for other preprocedural examination-Z01.818; Atherosclerotic heart disease-I25.10 Indication: Pre-Op Evaluation CPT Code: Stress Test Interpretation-25578; Stress Test Supervision-79917 Falls Risk: Low: Patient has a low [...] + 78 170 69 +--+------+-------+------- + 83 121 83 7037 minute, 0.4mg IV Lexiscan given, no symptoms +--+------+-------+------- + 88 587 12 3286 minutes, no symptoms +--+------+-------+------- + Recovery ECG: Recovery ECG showed normal sinus rhythm, with no abnormal findings. The heart rate recovery was normal. + +--+------+-- -----+ -----+ HR Sys BP Miller BP Comments + +--+------+-- -----+ -----+ Recovery I 90 855 62 3806 minute, no symptoms + +--+------+-- -----+ -----+ Recovery II 90 299 26 1254 minutes, no symptoms + +--+------+-- -----+ -----+ Recovery III 91 481 60 4625 minutes, no symptoms + +--+------+-- -----+ -----+ Recovery IV 88 449 43 4061 minutes, no symptoms + +--+------+-- -----+ -----+ Summary: 1. No clinical evidence for ischemia at a maximal infusion. 2. This exercise test is indeterminate because of an abnormal baseline ECG. 3. Nuclear image results are reported separately. [id number] Raymon Angel MD Electronically signed on 04/16/2024 at 12:45:38 PM Final [facility] Work Phone: No Panel InformationOrdered By: Raymon Angel on 04-16-2024 [facility] Work Phone: OCT ANTERIOR SEGMENT CIRRUS OS (LEFT EYE)on 02-13-2024 [facility] Radiology Study observation (narrative) [facility] Basic metabolic 2000 panelon 01-18-2024 Anion gap [Moles/Vol] 9 mmol/L Normal 9-18 [facility] Comment on above: Order Comment: Bethany reeves Type: BLOOD SPECIMEN Ordering Facility: [facility] Address: [address] [place] [address] Performed By: #### 2 4321-2 #### [facility] CLIA [id number] [address] [place] [address] [place] Calcium [Mass/Vol] 9.9 mg/dL Normal 8.5-10.2 [facility] Comment on above: Order Comment: Bethany reeves Type: BLOOD SPECIMEN Ordering Facility: [facility] Address: [address] [place] [address] Performed By: #### 2 4321-2 #### [facility] CLIA [id number] [address] [place] [address] [place] Chloride [Moles/Vol] 98 mmol/L Normal 97-105 [facility] Comment on above: Order Comment: Bethany reeves Type: BLOOD SPECIMEN Ordering Facility: [facility] Address: [facility] [place] [address] Performed By: #### 2 4321-2 #### [facility] CLIA [id number] [place] [address] [place] CO2 [Moles/Vol] 32 mmol/L High 22-30 [facility] Comment on above: Order Comment: Bethany reeves Type: BLOOD SPECIMEN Ordering Facility: [facility] Address: [address] [place] [address] Performed By: #### 2 4321-2 #### [facility] CLIA [id number] [address] [place] [address] [place] Creatinine [Mass/Vol] 5.00 mg/dL High 0.58-0.96 [facility] Comment on above: Order Comment: Bethany reeves Type: BLOOD SPECIMEN Ordering Facility: [facility] Address: [address] [place] [address] Performed By: #### 2 4321-2 #### [facility] CLIA [id number] [address] [place] [address] [place] Creatinine and Glomerular filtration rate.predicted panel (S/P/Bld) 9 mL/min/1.73m??? Low >=60 [facility] Comment on above: Order Comment: Bethany reeves Type: BLOOD SPECIMEN Ordering Facility: [facility] Address: [address] [place] [address] Result Comment: Mary mated Glomerular Filtration Rate [...] GFR. Performed By: #### 2 4321-2 #### [facility] CLIA [id number] [address] [place] [address] [place] Glucose [Mass/Vol] 175 mg/dL High 74-99 [facility] Comment on above: Order Comment: Bethany lala Type: BLOOD SPECIMEN Ordering Facility: [facility] Address: [address] [place] [address] Result Comment: The [place] Diabetes Association (ADA) provides guidance for cutoff [...] Standards of Medical Care in Diabetes 2016, [place] [employer] Association. Diabetes Care. 2016.39(Suppl 1). Performed By: #### 2 4321-2 #### [facility] CLIA [id number] [address] [place] [address] [place] Potassium [Moles/Vol] 4.5 mmol/L Normal 3.7-5.1 [facility] Comment on above: Order Comment: Bethany reeves Type: BLOOD SPECIMEN Ordering Facility: [facility] Address: [address] [place] [address] Performed By: #### 2 4321-2 #### [facility] CLIA [id number] [address] [place] [address] [place] Sodium [Moles/Vol] 139 mmol/L Normal 136-144 [facility] Comment on above: Order Comment: Bethany reeves Type: BLOOD SPECIMEN Ordering Facility: [facility] Address: [address] [place] [address] Performed By: #### 2 4321-2 #### [facility] CLIA [id number] [address] [place] [address] [place] Urea nitrogen [Mass/Vol] 29 mg/dL High 7-21 [facility] Comment on above: Order Comment: Bethany reeves Type: BLOOD SPECIMEN Ordering Facility: [facility] Address: [address] [place] [address] Performed By: #### 2 4321-2 #### [facility] CLIA [id number] [address] [place] [address] [place] ECG COMPLETEon 01-18-2024 ECG COMPLETE Ventricular Rate : 8 5 BPM Atrial Rate : 85 BPM P-R Interval : 242 ms QRS Duration : 138 ms Q-T Interval : 413 ms QTC Calculation(Bazett) : 492 ms Calculated P Potosi : 96 degrees Calculated R Potosi : -44 degrees Calculated T Potosi : 111 degrees Sinus rhythm Prolonged ME interval Right bundle branch block/LAHB LVH with IVCD and secondary repol abnrm Prolonged QT interval Abnormal ECG Confirmed by ANDRES WYNNE M.D. ([id number]) on 01/23/2024 9:30:41 PM NAME : SANYD BHATTI PID : [id number] : 1965 Gender : Female Race : ORD : [id number] Procedure Date : Jan 18 2024 11:28:03 Edit Date : Jan 23 2024 21:30:42 Diagnosis: Sinus rhythm Prolonged ME interval Right bundle branch block/LAHB LVH with IVCD and secondary repol abnrm Prolonged QT interval Abnormal ECG Confirmed by ANDRES WYNNE M.D. ([id number]) on 01/23/2024 9:30:41 PM Test Reason : Pre OP Location : 400 : FVEKG 14 Overread By : ANDRES WYNNE M.D. Edited By : ANDRES WYNNE M.D. Referred By : , Acquired by : 400, [facility] HISTORY PHYSICALon HISTORY PHYSICAL HNO ID: [id number] Author: HERBERTH GAN PA-C Service: Cardiovascular Disease Author Type: Physician Transportation Analyst Type: H&P Filed: 01/18/2024 12:28 Note Text: [...] yr and her regular dialysis days are MON,WED,FRI days and she has had full session [...] colic 06/12/2007 Secondary hyperparathyroidism of renal origin ([facility]) 06/20/2023 Steal syndrome dialysis vascular access ([facility]) 05/17/2019 Thyroid disorder TIA (transient ischemic attack) [...] COLONOSCOPY SCREENING 11/15/2022 COLOSTOMY/SKIN LEVEL CECOSTOMY 2007 8213-8243, reversed 2007 CREATION OF AVF, PERCUTANEOUS USING [...] lung cancer Coronary Artery Disease Brother dec. [place] 57 y.o. No Known Problems Maternal Grandmother [...] times daily., Di (more content not included)... Normal [facility] NURSING PROGon 01-18-2024 NURSING PROG HNO ID: [id number] Author: CHET MILAN RN Service: Nursing Author [...] lightheadedness. 1557 Discharged home with via wheelchair. [facility] NURSING PROG HNO ID: [id number] Author: HALEY MURRAY RN Service: Nursing Author [...] 18, 2024 TIME: 12:58 PM PAGER/CONTACT #: [facility] OPERATIVE NOon 01-18-2024 OPERATIVE NO HNO ID: [id number] Author: FELICIA AVENDANO MD Service: Vascular Surgery Author Type: Physician Type: Operative Report Filed: 01/18/2024 14:52 Note Text: OPERATIVE/PROCEDURE REPORT LOG ID: [id number] Surgery/Procedure Date: 01/18/2024 Incision/Procedure Start Time: 2:00 PM Incision Close/Procedure End Time: 2:33 PM Surgeon(s)/Proceduralist(s ) and Transportation Analyst(s): Surgeon(s) and Role: * Felicia Avendano MD [...] details: The patient was taken to the laboratory worker room and laid supine on the table. [...] DATE: 01/18/2024 TIME: 2:44 PM PAGER/CONTACT #: [phone] [facility] XR Chest PA and Lateralon IMPRESSION: Stable exam without acute findings. Yoker: [facility] Transcribe Date/Time: Oct 27 2023 12:45P Dictated by : NAYELI CURRIE MD This examination was interpreted and the report reviewed and electronically signed by: NAYELI CURRIE MD on Oct 27 2023 12:46PM [facility] DIVISION OF RADIOLOGY * * *Final [...] shows degenerative changes. DIVISION OF RADIOLOGY [facility] - 10/27/2023 * * *Final Report* * [...] IMPRESSION IMPRESSION: Stable exam without acute findings. Yoker: [facility] Transcribe Date/Time: Oct 27 2023 12:45P Dictated by : NAYELI CURRIE MD This examination was interpreted and the report reviewed and electronically signed by: NAYELI CURRIE MD on Oct 27 2023 12:46PM EST [facility] XR Chest PA and LateralOrder ed By: [facility] Provider on 10-27-2023 [facility] XR Chest PA and Lateralon Radiology Study observation (narrative) [facility] TRANSTHORACIC ECHO (TTE) COM PLETEon 09-18-2023 TRANSTHORACIC ECHO (TTE) [place] [address] ext-4028, TRANSTHORACIC ECHOCARDIOGRAM REPORT Patient Name: SANDY BHATTI Reading Physician: [id number] Reuben Skinner MD Study Date: 09/18/2023 Ordering Provider: [id number] ROLY FONTANA MRN/PID: [id number] Fellow: Nurse: Marilou Shabazz RN Date of /Age: 5 1965 / 58 years Nanny Caregiver: RUSH Mansfield RVT Gender: F Additional Staff: Height: 160.02 cm Admit Date: Weight: 65.32 kg Admission Status: Outpatient BSA: 1.68 m2 Department Location: 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 [...] LA Area A2C: 12.9 cm2 LA Major Potosi A4C: 4.5 cm LA Major [place] A2C: 4.6 cm LA Volume Index: 17.3 [...] 1.5 m/s (0.6-0.9m/s) PV Max P.8 mmHg [id number] Reuben Skinner MD Electronically signed on 09/18/2023 at 12:24:56 PM Final Normal [facility] US Heart TransthoracicOrdere d By: Reuben Skinner on 09-18-2023 Aortic Valve Area by Continuity of Peak Velocity 1.34 [facility] Work Phone: [phone] Aortic Valve Area by Continuity of VTI 1.26 [facility] Work Phone: [phone] AV mn grad 4.0 [facility] Work Phone: [phone] AV pk grad 7.6 [facility] Work Phone: [phone] AV pk jan 1.38 [facility] Work Phone: [phone] LA vol index A/L 13.7 [facility] Work Phone: LV A4C EF 64.7 [facility] Work Phone: LV biplane EF 62 [facility] Work Phone: LVIDd 3.55 [facility] Work Phone: LVOT diam 1.50 [facility] Work Phone: MV avg E/e' ratio 10.96 [facility] Work Phone: MV E/A ratio 0.77 [facility] Work Phone: Tricuspid annular plane systolic excursion 1.3 [facility] Work Phone: [facility] Work Phone: US [place] [address] ext-2528, TRANSTHORACIC ECHOCARDIOGRAM REPORT Patient Name: SANDY PRESSLEY MAGY Reading Physician: [id number] Reuben Skinner MD Study Date: 09/18/2023 Ordering Provider: [id number] ROLY FONTANA MRN/PID: [id number] Fellow: Nurse: Marilou Shabazz RN Date of /Age: 5 1965 / 58 years Nanny Caregiver: RUSH Mansfield RVT Gender: F Additional Staff: Height: 160.02 cm Admit Date: Weight: 65.32 kg Admission Status: Outpatient BSA: 1.68 m2 Department Location: 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 [...] LA Area A2C: 12.9 cm2 LA Major Potosi A4C: 4.5 cm LA Major [place] A2C: 4.6 cm LA Volume Index: 17.3 [...] not included)... Reuben Smith MD - 09/18/2023 [place] [address] ext-2528, TRANSTHORACIC ECHOCARDIOGRAM REPORT Patient Name: SANDY PRESSLEY MAGY Baez Physician: [id number] Reuben Skinner MD Study Date: 09/18/2023 Ordering Provider: [id number] ROLY FONTANA MRN/PID: [id number] Fellow: Nurse: Marilou Harika RN Date of /Age: 5 1965 / 58 years Nanny Caregiver: Barbi Thomson RVT, RUSH Gender: F Additional Staff: Height: 160.02 cm Admit Date: Weight: 65.32 kg Admission Status: Outpatient BSA: 1.68 m2 Department Location: 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 [...] LA Area A2C: 12.9 cm2 LA Major [place] A4C: 4.5 cm LA Major [place] A2C: 4.6 cm LA Volume Index: 17.3 [...] 1.5 m/s (0.6-0.9m/s) PV Max P.8 mmHg [id number] Reuben Skinner MD Electronically signed on 09/18/2023 at 12:24:56 PM Final [facility] Work Phone: BRIEF OP NOTon 07-18-2023 BRIEF OP NOT HNO ID: [id number] Author: Olman Blake MD Service: Vascular Surgery Author Type: Resident Type: Brief Op Note Filed: 07/18/2023 12:03 PM Note Text: BRIEF OPERATIVE / PROCEDURE NOTE LOG ID: [id number] Surgery/Procedure Date: 07/18/2023 Incision/Procedure Start Time: 11:26 AM Incision Close/Procedure End Time: 11:42 AM Surgeon(s)/Proceduralist(s ) and Transportation Analyst(s): Surgeon(s) and Role: * Raul Duque MD - Primary * Olman Blake MD - Resident - Assisting No Additional Staff Procedure(s): PERC THROMBECTOMY/INFUSION FOR THROMBOLYSIS AV FISTULA,FLUORO GUIDED,INCLUSIVE OF RAD NIDIA: 54166 (CPT?) Left brachio-brachial arteriovenous graft angiogram, percutaneous transluminal venoplasty ROBERTA Angio: Access: RUE AVG Closure: digital pressure Contrast: 18cc Fluorotime: 2.0 min, AK 21.8, DAP 387 Anesthesia: Procedural Sedation ASA Class: ASA Class:: IIIE Findings: good arterial inflow; high-grade central subclavian/innominate venous stenosis, dilated with 26d53to [employer] Tender balloon, with improvement in vein caliber and [...] 18, 2023 TIME: 11:55 AM PAGER/CONTACT #: [phone] Normal [facility] Basic metabolic 2000 panelon 07-18-2023 Anion gap [Moles/Vol] 11 mmol/L Normal 9-18 [facility] Comment on above: Order Comment: Speci men Type: BLOOD SPECIMEN Ordering Facility: [facility] Address: [address] [place] [address] Performed By: #### 2 4321-2 #### [facility] CLIA [id number] [address] [place] [address] [place] Calcium [Mass/Vol] 9.6 mg/dL Normal 8.5-10.2 [facility] Comment on above: Order Comment: Speci men Type: BLOOD SPECIMEN Ordering Facility: [facility] Address: [address] [place] [address] Performed By: #### 2 4321-2 #### [facility] CLIA [id number] [address] [place] [address] [place] Chloride [Moles/Vol] 99 mmol/L Normal 97-105 [facility] Comment on above: Order Comment: Speci men Type: BLOOD SPECIMEN Ordering Facility: [facility] Address: [address] [place] [address] Performed By: #### 2 4321-2 #### [facility] CLIA [id number] [address] [place] [address] [place] CO2 [Moles/Vol] 30 mmol/L Normal 22-30 [facility] Comment on above: Order Comment: Speci men Type: BLOOD SPECIMEN Ordering Facility: [facility] Address: [address] [place] [address] Performed By: #### 2 4321-2 #### [facility] CLIA [id number] [address] [place] [address] [place] Creatinine [Mass/Vol] 5.68 mg/dL High 0.58-0.96 [facility] Comment on above: Order Comment: Bethany reeves Type: BLOOD SPECIMEN Ordering Facility: [facility] Address: [address] [place] [address] Performed By: #### 2 4321-2 #### [facility] CLIA [id number] [place] Creatinine and Glomerular filtration rate.predicted panel (S/P/Bld) 8 mL/min/1.73m??? Low >=60 [facility] Comment on above: Order Comment: Angela lala Type: BLOOD SPECIMEN Ordering Facility: [facility] Address: [address] [place] [address] Result Comment: Mary mated Glomerular Filtration Rate [...] GFR. Performed By: #### 2 4321-2 #### [facility] CLIA [id number] [address] [place] [address] [place] Glucose [Mass/Vol] 236 mg/dL High 74-99 [facility] Comment on above: Order Comment: Bethany reeves Type: BLOOD SPECIMEN Ordering Facility: [facility] Address: [address] [place] [address] Result Comment: The [place] Diabetes Association (ADA) provides guidance for cutoff [...] Standards of Medical Care in Diabetes 2016, [place] Diabetes Association. Diabetes Care. 2016.39(Suppl 1). Performed By: #### 2 4321-2 #### [facility] CLIA [id number] [address] [place] [address] [place] Potassium [Moles/Vol] 4.9 mmol/L Normal 3.7-5.1 [facility] Comment on above: Order Comment: Speci men Type: BLOOD SPECIMEN Ordering Facility: [facility] Address: [address] [place] [address] Performed By: #### 2 4321-2 #### [facility] CLIA [id number] [address] [place] [address] [place] Sodium [Moles/Vol] 140 mmol/L Normal 136-144 [facility] Comment on above: Order Comment: Bethany reeves Type: BLOOD SPECIMEN Ordering Facility: [facility] Address: [address] [place] [address] Performed By: #### 2 4321-2 #### [facility] CLIA [id number] [address] [place] [address] [place] Urea nitrogen [Mass/Vol] 31 mg/dL High 7-21 [facility] Comment on above: Order Comment: Bethany reeves Type: BLOOD SPECIMEN Ordering Facility: [facility] Address: [address] [place] [address] Performed By: #### 2 4321-2 #### [facility] CLIA [id number] [address] [place] [address] [place] ECG COMPLETEon 07-18-2023 ECG COMPLETE Ventricular Rate : 6 5 BPM Atrial Rate : 65 BPM P-R Interval : 171 ms QRS Duration : 137 ms Q-T Interval : 479 ms QTC Calculation(Bazett) : 499 ms Calculated P Potosi : -2 degrees Calculated R [place] : -39 degrees Calculated T [place] : 135 degrees Sinus rhythm Multiple ventricular premature complexes Right bundle branch block LVH with IVCD and secondary repol abnrm Lateral infarct, old Abnormal ECG Confirmed by HOWARD LAY DO ([id number]) on 07/26/2023 3:30:02 PM NAME : SANDY BHATTI PID : [id number] : 1965 Gender : Female Race : ORD : [id number] Procedure Date : Jul 18 2023 10:34:43 Edit Date : Jul 26 2023 15:30:05 Diagnosis: Sinus rhythm Multiple ventricular premature complexes Right bundle branch block LVH with IVCD and secondary repol abnrm Lateral infarct, old Abnormal ECG Confirmed by HOWARD LAY DO ([id number]) on 07/26/2023 3:30:02 PM Test Reason : Pre OP Location : 400 : FVEKG 25 Overread By : HOWARD LAY DO Edited By : HOWARD LAY DO Referred By : , Acquired by : Juice KOROMA [facility] HISTORY PHYSICALon HISTORY PHYSICAL HNO ID: [id number] Author: Herberth Gan PA-C Service: Cardiovascular Disease Author Type: Physician Transportation Analyst Type: HANDP Filed: 07/18/2023 10:51 AM Note [...] bruit History of TIA: No History of OH: No Diabetes: Yes History of Bleeding Issues: [...] which included preparing to see the patient, [id number] patient care, completing clinical documentation, obtaining and/or reviewing separately obtained history, performing a medically appropriate examination, and ordering medications, tests, or procedures. 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 BMP pending. Dr. Duque aware. At bedside for consent. This note was completed by: Day Jefferson [facility] OPERATIVE NOon 07-18-2023 OPERATIVE NO HNO ID: [id number] Author: Raul Duque MD Service: Vascular Surgery Author Type: Physician Type: Operative Report Filed: 07/19/2023 12:32 PM Note Text: OPERATIVE/PROCEDURE REPORT LOG ID: [id number] Surgery/Procedure Date: 07/18/2023 Incision/Procedure Start Time:11:26 AM Incision Close/Procedure End Time: 11:42 AM Surgeon(s)/Proceduralist(s ) and Transportation Analyst(s): Surgeon(s) and Role: * Raul Duque MD - Primary * Olman Blake MD - Resident - Assisting No Additional Staff Procedure(s): Fistulogram left upper extremity Angioplasty of left innominate vein and SVC with 12mm balloon Anesthesia: Procedural Sedation Operative indications: 58 year old female who presents for fistulogram due to high venous pressures. Procedure details: The patient was taken to the laboratory worker and laid supine on the table. After [...] The sheath was up-sized to a 7 omani sheath. The stenosis was ballooned with a/an [...] DATE: 07/18/2023 TIME: 12:31 PM PAGER/CONTACT #: [phone] [facility] ALLIED HEALTH 06-21-2023 ALLIED HEALTH HNO ID: [id number] Author: Triston Johnson CNMT Service: ? Author Type: Hoist Mechanic Type: Allied Health Filed: 06/21/2023 11:14 AM [...] documentation PROCEDURE TYPE: NM Stress: 12.6 mCi [id number] was administered IV for Rest Imaging at 0946 by Moncho 34.2 mCi Jx80o-Kilxgoy was administered IV for Stress Imaging at 1112 by Moncho ADMINISTRATION TIME: 945/1111 PATIENT DISCHARGED TO: Patient taken to IP transport area for return to RNF/ICU/ED. A Diagnostic radioactive procedure has taken place, with no further precautions necessary other than routine body substance precautions. More information regarding radiation safety can be found using this link: [email or web address] /[email or web address]%20Protection %20-%20Diagnostic%20Nuclea r%20Medicine%20Procedures. pdf SIGNATURE: RUBIO Armstrong PATIENT NAME: Sandy Bhatti DATE: June 21, 2023 TIME: 11:13 AM PAGER/CONTACT #: Normal [facility] Basic metabolic 2000 panelon 06-21-2023 Anion gap [Moles/Vol] 9 mmol/L Normal 05-22 [facility] Comment on above: Order Comment: Speci men Type: BLOOD SPECIMEN Ordering Facility: [facility] Address: [address] [place] [address] Performed By: #### H STNT, , #### [facility] CLIA [id number] [place] [address] [place] Calcium [Mass/Vol] 9.5 mg/dL Normal 8.5-10.2 [facility] Comment on above: Order Comment: Speci men Type: BLOOD SPECIMEN Ordering Facility: [facility] Address: [address] [place] [address] Performed By: #### H STNT, , #### [facility] CLIA [id number] [place] [address] [place] Chloride [Moles/Vol] 98 mmol/L Normal 97-105 [facility] Comment on above: Order Comment: Speci men Type: BLOOD SPECIMEN Ordering Facility: [facility] Address: [address] [place] [address] Performed By: #### H STNT, , #### [facility] CLIA [id number] [address] [place] [address] [place] CO2 [Moles/Vol] 33 mmol/L High 22-30 [facility] Comment on above: Order Comment: Speci men Type: BLOOD SPECIMEN Ordering Facility: [facility] Address: [address] [place] [address] Performed By: #### H STNT, , #### [facility] CLIA [id number] [address] [place] [address] [place] Creatinine [Mass/Vol] 5.22 mg/dL High 0.58-0.96 [facility] Comment on above: Order Comment: Speci men Type: BLOOD SPECIMEN Ordering Facility: [facility] Address: [address] [place] [address] Performed By: #### H STNT, , #### [facility] CLIA [id number] [address] [place] [address] [place] Creatinine and Glomerular filtration rate.predicted panel (S/P/Bld) 9 mL/min/1.73m??? Low >=60 [facility] Comment on above: Order Comment: Speci men Type: BLOOD SPECIMEN Ordering Facility: [facility] Address: [address] [place] [address] Result Comment: Mary mated Glomerular Filtration Rate [...] actual GFR. Performed By: #### H STNT, , #### [facility] CLIA [id number] [place] [id number] [place] Glucose [Mass/Vol] 42 mg/dL Low 74-99 [facility] Comment on above: Order Comment: Bethany reeves Type: BLOOD SPECIMEN Ordering Facility: [facility] Address: [address] [place] [address] Result Comment: The [place] Diabetes Association (ADA) provides guidance for cutoff [...] Standards of Medical Care in Diabetes 2016, [place] Diabetes Association. Diabetes Care. 2016.39(Suppl 1). Performed By: #### H STNT, , #### [facility] CLIA [id number] [address] [place] [address] [place] Potassium [Moles/Vol] 4.5 mmol/L Normal 3.7-5.1 [facility] Comment on above: Order Comment: Bethany reeves Type: BLOOD SPECIMEN Ordering Facility: [facility] Address: [address] [place] [address] Performed By: #### H STNT, , #### [facility] CLIA [id number] [address] [place] [address] [place] Sodium [Moles/Vol] 140 mmol/L Normal 136-144 [facility] Comment on above: Order Comment: Angelai lala Type: BLOOD SPECIMEN Ordering Facility: [facility] Address: [address] [place] [address] Performed By: #### H STNT, , #### [facility] CLIA [id number] [address] [place] [address] [place] Urea nitrogen [Mass/Vol] 24 mg/dL High 7-21 [facility] Comment on above: Order Comment: Speci men Type: BLOOD SPECIMEN Ordering Facility: [facility] Address: [address] [place] [address] Performed By: #### H STNT, 71178-4, 44669-0 #### [facility] CLIA [id number] [place] [address] [place] CBC panel Auto (Bld)on 06-21 Erythrocyte distribution width (RBC) [Ratio] 14.8 % Normal 11.5-15.0 [facility] Comment on above: Order Comment: Speci men Type: BLOOD SPECIMENOrdering Facility: [facility] Address: [address] [place] [address] Performed By: #### 5 8410-2 ####[facility]ATORYCLIA [id number] [address] Hematocrit (Bld) [Volume fraction] 36.6 % Normal 36.0-46.0 [facility] Comment on above: Order Comment: Speci men Type: BLOOD SPECIMENOrdering Facility: [facility] Address: [address] [place] [address] Performed By: #### 5 8410-2 ####[facility] LABORATORYCLIA [id number] [address] [place] Hemoglobin (Bld) [Mass/Vol] 11.2 g/dL Low 11.5-15.5 [facility] Comment on above: Order Comment: Speci men Type: BLOOD SPECIMENOrdering Facility: [facility] Address: [address] [place] [address] Performed By: #### 5 8410-2 ####[facility] LABORATORYCLIA [id number] [address] [place] MCH (RBC) [Entitic mass] 31.7 pg Normal 26.0-34.0 [facility] Comment on above: Order Comment: Speci men Type: BLOOD SPECIMENOrdering Facility: [facility] Address: [address] [place] [address] Performed By: #### 5 8410-2 ####[facility] LABORATORYCLIA [id number] [address] [place] MCHC (RBC) [Mass/Vol] 30.6 g/dL Normal 30.5-36.0 [facility] Comment on above: Order Comment: Speci men Type: BLOOD SPECIMENOrdering Facility: [facility] Address: [address] [place] [address] Performed By: #### 5 8410-2 ####[facility]ORYCLIA [id number] [place] [id number] [place] MCV (RBC) [Entitic vol] 103.7 fL High 80.0-100.0 [facility] Comment on above: Order Comment: Speci men Type: BLOOD SPECIMENOrdering Facility: [facility] Address: [address] [place] [address] Performed By: #### 5 8410-2 ####[facility] LABORATORYCLIA [id number] [place] [address] [place] Nucleated RBC (Bld) [#/Vol] 10*3/uL Normal <0.01 [facility] Comment on above: Order Comment: Speci men Type: BLOOD SPECIMENOrdering Facility: [facility] Address: [address] [place] [address] Performed By: #### 5 8410-2 ####[facility] LABORATORYCLIA [id number] [place] [address] [place] Platelet mean volume (Bld) [Entitic vol] 9.1 fL Normal 9.0-12.7 [facility] Comment on above: Order Comment: Speci men Type: BLOOD SPECIMENOrdering Facility: [facility] Address: [address] [place] [address] Performed By: #### 5 8410-2 ####[facility] LABORATORYCLIA [id number] [place] [id number] [place] Platelets (Bld) [#/Vol] 290 10*3/uL Normal 150-400 [facility] Comment on above: Order Comment: Speci men Type: BLOOD SPECIMENOrdering Facility: [facility] Address: [address] [place] [address] Performed By: #### 5 8410-2 ####[facility] LABORATORYCLIA [id number] [place] [id number] [place] RBC (Bld) [#/Vol] 3.53 10*6/uL Low 3.90-5.20 [facility] Comment on above: Order Comment: Speci lala Type: BLOOD SPECIMENOrdering Facility: [facility] Address: [address] [place] [address] Performed By: #### 5 8410-2 ####[facility] LABORATORYCLIA [id number] [place] [id number] [facility] WBC (Bld) [#/Vol] 7.11 10*3/uL Normal 3.70-11.00 [facility] Comment on above: Order Comment: Speci men Type: BLOOD SPECIMENOrdering Facility: [facility] Address: [address] [place] [address] Performed By: #### 5 8410-2 ####[facility] LABORATORYCLIA [id number] [place] [id number] [facility] CNDSon 06-21-2023 CNDS HNO ID: [id number] Author: Milagro Bruce MD Service: Hospital Medicine [...] inferior infarct The EKG was reviewed by medical practice manager Dr Barros appreciate his input no acute [...] Continue to (more content not included)... Normal [facility] CONSULTon 06-21-2023 CONSULT HNO ID: [id number] Author: Danita Barros MD Service: Cardiovascular Medicine Author Type: Physician Type: Consults Filed: 06/20/2023 10:26 PM Note Text: CARDIOLOGY SERVICE: CONSULT SERVICE DATE: 06/20/2023 Time: 10:09 PM CONSULTING PHYSICIAN: Danita Barros FACC PCP: Maldonado Raza MD ATTENDING: Milagro Bruce [...] ESRF-HD DM Thyroid dis, stroke? 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 Bhatti is a 58 year old female is referred to cardiology consult. Patient was admitted with significant hyperkalemia more than 6 and abnormal EKG. She was here for an elective AV fistula. She has some cardiac history as delineated above. In preop Real Estate Firm Manager before AV fistula I saw the patient [...] (HumaLOG) 6 Units (more content not included)... Normal [facility] CONSULT PROGon 06-21-2023 CONSULT PROG HNO ID: [id number] Author: Otoniel Guy MD Service: Nephrology Author [...] - Outpatient followed by Dr. Shelton at [facility]. MWF. 4Hrs. HTN: Controlled. - Home norvasc 5mg, clonidine 0.3mg bedtime, lisinopril 40mg ECG changes: Cardiology following RUE edema: Vascular following. Secondary hyperparathyroidism: Follow ca and phos. PLAN: HD today to return to MWF HD schedule HD next on Monday Pending RUE fistulogram SIGNATURE: Otoniel Guy MD. PATIENT NAME: Sandy Bhatti DATE/TIME: June 21, 2023 1:49 PM FOR AFTER HOUR CONCERNS BETWEEN 7PM - 7AM CONTACT ON-CALL NEPHROLOGY STAFF [facility] CONSULT PROG HNO ID: [id number] Author: Danita Barros MD Service: Cardiovascular Medicine Author Type: Physician Type: Consult Progress Note Filed: 06/22/2023 8:38 PM Note Text: CARDIOLOGY CONSULT PROGRESS NOTE SERVICE DATE: 06/21/2023 Time: 8:09 AM ATTENDING: Milagro Bruce MD [employer] Consultant: Danita Barros MD ASSESSMENT: LVH, no chest [...] ESRF-HD DM Thyroid dis, stroke? 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 VITAL SIGNS (last recorded): 06/20/23 1845 06/20/23 1900 06/20/23 1959 06/21/23 0700 [...] 8:09 AM call 24 hour service line Normal [facility] ECG COMPLETEon 06-21-2023 ECG COMPLETE Ventricular Rate : 6 2 BPM Atrial Rate : 62 BPM P-R Interval : 165 ms QRS Duration : 135 ms Q-T Interval : 470 ms QTC Calculation(Bazett) : 478 ms Calculated P Potosi : -13 degrees Calculated R [place] : -42 degrees Calculated T [place] : 120 degrees Sinus rhythm Ventricular premature complex Right bundle branch block LVH with IVCD and secondary repol abnrm Inferior infarct, acute Abnormal ECG Confirmed by MD FIORELLA, DANITA ([id number]) on 06/22/2023 8:33:19 PM NAME : SANDY BHATTI PID : [id number] : 1965 Gender : Female Race : ORD : [id number] Procedure Date : Jun 21 2023 07:55:12 Edit Date : Jun 22 2023 20:33:20 Diagnosis: Sinus rhythm Ventricular premature complex Right bundle branch block LVH with IVCD and secondary repol abnrm Inferior infarct, acute Abnormal ECG Confirmed by MD FIORELLA, DANITA ([id number]) on 06/22/2023 8:33:19 PM Test Reason : CAD Unspecified Location : 400 : FVEKG 3P31 Overread By : MD BARROS BASEL Edited By : MD BARROS BASEL Referred By : , Acquired by : MAMTA COOLEY Normal [facility] HIGH SENSITIVITY TROPONIN To n 06-21-2023 Troponin T.cardiac High sensitivity method [Mass/Vol] 124 ng/L High <12 [facility] Comment on above: Order Comment: Bethany reeves Type: BLOOD SPECIMEN Ordering Facility: [facility] Address: [address] [place] [address] Result Comment: When assessing risk for acute [...] day MACE. Performed By: #### H STNT, 13584-2, #### [facility] CLIA [id number] [place] [address] [place] Magnesium SerPl-mCncon 06-21 Magnesium [Mass/Vol] 2.5 mg/dL High 1.7-2.3 [facility] Comment on above: Order Comment: Bethany reeves Type: BLOOD SPECIMEN Ordering Facility: [facility] Address: [address] [place] [address] Performed By: #### H STNT, 41926-7, #### [facility] CLIA [id number] [place] [address] [place] CARDIAC PERF STRESS/PHARM on 06-21-2023 NM CARDIAC PERF STRESS/PHARM * * *Final Report* * * DATE OF EXAM: Jun 21 2023 12:06PM FVN 0006 - NM CARDIAC PERF STRESS/PHARM / PROCEDURE REASON: CAD screening, high CAD risk, not treadmill candidate * * * * Physician Interpretation * * * * Stress Dot Net Developer Report: [facility] Date of service: 06/21/2023 10:23:06 AM Supervising [...] later. See administered radiotracer and doses below. [facility] Date of service: 06/21/2023 10:23:06 AM Ordering Physician: DANITA BARROS. Requesting Physician: DANITA BARROS Indication: Assessment for suspected CAD, Abnormal Baseline ECG and Unable to Exercise Interpreting physician: Cem Rush MD Height: 160.02 cm BSA: 1.71 [...] Final * * * NM CTAC Report: [facility] Date of service: 06/21/2023 10:23:06 AM CTAC interpreting physician: Cem Rush MD PATIENT: Name: MRS. SANDY BHATTI Age: 58 years Gender: F 1. Incidental Findings from limited non-diagnostic CTAC: - Coronary calcifications visualized. Mitral annular calcification. * * * Final * * * Stress ECG Report: [facility] Date of service: 06/21/2023 10:23:06 AM Ordering physician: DANITA BARROS tire specialist: Inna Hylton Transportation Analyst: Jeffery Queen Interpreting physician: Danita Barros MD [...] chest discomfort (more content not included)... Normal [facility] NURSING PROGon 06-21-2023 NURSING PROG HNO ID: [id number] Author: Kaitlynn Barger RN Service: Nursing Author [...] 1845 Tele DC and pt dressed arrived 185 Pt left unit via wheelchair with all belongings Normal [facility] NURSING PROG HNO ID: [id number] Author: Duc Torrez, RN Service: Nursing Author [...] reading 75, reported to oncoming nurse. Normal [facility] Basic metabolic 2000 panelon 06-20-2023 Anion gap [Moles/Vol] 7 mmol/L Low - [facility] Comment on above: Order Comment: Speci men Type: BLOOD SPECIMENOrdering Facility: [facility] Address: [address] [place] [address] Performed By: #### H STNT, 37155-1, 6, 25635-2 ####[facility] LABORATORYCLIA [id number] [place] [address] [place] Calcium [Mass/Vol] 9.4 mg/dL Normal 8.5-10.2 [facility] Comment on above: Order Comment: Speci men Type: BLOOD SPECIMENOrdering Facility: [facility] Address: [address] [place] [address] Performed By: #### H STNT, 91734-9, 2157-02, 44033-8 ####[facility] LABORATORYCLIA [id number] [place] [address] [place] Chloride [Moles/Vol] 98 mmol/L Normal 97-105 [facility] Comment on above: Order Comment: Speci men Type: BLOOD SPECIMENOrdering Facility: [facility] Address: [address] [place] [address] Performed By: #### H STNT, 92826-8, 2157-02, 35353-5 ####C[facility] LABORATORYCLIA [id number] [place] [id number] [place] CO2 [Moles/Vol] 34 mmol/L High 22-30 [facility] Comment on above: Order Comment: Speci men Type: BLOOD SPECIMENOrdering Facility: [facility] Address: [address] [place] [address] Performed By: #### H STNT, 53062-7, 2157-02, 96461-6 ####[facility] LABORATORYCLIA [id number] [place] [id number] [place] Creatinine [Mass/Vol] 6.17 mg/dL High 0.58-0.96 [facility] Comment on above: Order Comment: Speci men Type: BLOOD SPECIMENOrdering Facility: [facility] Address: [address] [place] [address] Performed By: #### H STNT, 17618-0, 2157-02, 56391-1 ####[facility] LABORATORYCLIA [id number] [place] [address] [place] Creatinine and Glomerular filtration rate.predicted panel (S/P/Bld) 7 mL/min/1.73m??? Low >=60 [facility] Comment on above: Order Comment: Speci men Type: BLOOD SPECIMENOrdering Facility: [facility] Address: [address] [place] [address] Result Comment: Mary mated Glomerular Filtration Rate [...] actual GFR. Performed By: #### H STNT, 70855-6, 2157-02, 04496-3 ####[facility] LABORATORYCLIA [id number] [place] [id number] [place] Glucose [Mass/Vol] 242 mg/dL High 74-99 [facility] Comment on above: Order Comment: Speci men Type: BLOOD SPECIMENOrdering Facility: [facility] Address: [address] [place] [address] Result Comment: The [place] Diabetes Association (ADA) provides guidance for cutoff [...] Standards of Medical Care in Diabetes 2016, [place] Diabetes Association. Diabetes Care. 2016.39(Suppl 1). Performed By: #### H STNT, 96769-9, 6, 22175-2 ####CABLE LABORATORYCLIA [id number] [place] [address] [place] Potassium [Moles/Vol] 5.5 mmol/L High 3.7-5.1 [facility] Comment on above: Order Comment: Bethany reeves Type: BLOOD SPECIMENOrdering Facility: [facility] Address: [address] [place] [address] Performed By: #### H STNT, 72117-8, 2157-02, 91950-3 ####CABLE LABORATORYCLIA [id number] [place] [address] [place] Sodium [Moles/Vol] 139 mmol/L Normal 136-144 [facility] Comment on above: Order Comment: Bethany reeves Type: BLOOD SPECIMENOrdering Facility: [facility] Address: [address] [place] [address] Performed By: #### H STNT, 29509-9, 2157-02, 93173-4 ####CABLE LABORATORYCLIA [id number] [place] [id number] [place] Urea nitrogen [Mass/Vol] 27 mg/dL High 7-21 [facility] Comment on above: Order Comment: Angelai men Type: BLOOD SPECIMENOrdering Facility: [facility] Address: [address] [place] [address] Performed By: #### H STNT, 71003-7, 2157-02, 05906-6 ####CABLE LABORATORYCLIA [id number] [place] [address] [place] Anion gap [Moles/Vol] 9 mmol/L Normal 9-18 [facility] Comment on above: Order Comment: Speci men Type: BLOOD SPECIMEN Ordering Facility: [facility] Address: [address] [place] [address] Performed By: #### 2 4321-2 #### [facility] CLIA [id number] [address] [place] [address] [place] Calcium [Mass/Vol] 9.4 mg/dL Normal 8.5-10.2 [facility] Comment on above: Order Comment: Speci men Type: BLOOD SPECIMEN Ordering Facility: [facility] Address: [address] [place] [address] Performed By: #### 2 4321-2 #### [facility] CLIA [id number] [address] [place] [address] [place] Chloride [Moles/Vol] 98 mmol/L Normal 97-105 [facility] Comment on above: Order Comment: Speci men Type: BLOOD SPECIMEN Ordering Facility: [facility] Address: [address] [place] [address] Performed By: #### 2 4321-2 #### [facility] CLIA [id number] [address] [place] [address] [place] CO2 [Moles/Vol] 31 mmol/L High 22-30 [facility] Comment on above: Order Comment: Speci men Type: BLOOD SPECIMEN Ordering Facility: [facility] Address: [address] [place] [address] Performed By: #### 2 4321-2 #### [facility] CLIA [id number] [address] [place] [address] [place] Creatinine [Mass/Vol] 5.77 mg/dL High 0.58-0.96 [facility] Comment on above: Order Comment: Speci men Type: BLOOD SPECIMEN Ordering Facility: [facility] Address: [address] [place] [address] Performed By: #### 2 4321-2 #### [facility] CLIA [id number] [address] [place], [place] [id number] [place] Creatinine and Glomerular filtration rate.predicted panel (S/P/Bld) 8 mL/min/1.73m??? Low >=60 [facility] Comment on above: Order Comment: Bethany reeves Type: BLOOD SPECIMEN Ordering Facility: [facility] Address: [address] [place] [address] Result Comment: Mary mated Glomerular Filtration Rate [...] GFR. Performed By: #### 2 4321-2 #### [facility] CLIA [id number] [place] [address] [place] Glucose [Mass/Vol] 265 mg/dL High 74-99 [facility] Comment on above: Order Comment: Bethany reeves Type: BLOOD SPECIMEN Ordering Facility: [facility] Address: [address] [place] [address] Result Comment: The [place] Diabetes Association (ADA) provides guidance for cutoff [...] Standards of Medical Care in Diabetes 2016, [place] [employer] Association. Diabetes Care. 2016.39(Suppl 1). Performed By: #### 2 4321-2 #### [facility] CLIA [id number] [place] [address] [place] Potassium [Moles/Vol] 6.3 mmol/L Critically high 3.7-5.1 [facility] Comment on above: Order Comment: Bethany reeves Type: BLOOD SPECIMEN Ordering Facility: [facility] Address: [address] [place] [address] Performed By: #### 2 4321-2 #### [facility] CLIA [id number] [address] [place] [address] [place] Sodium [Moles/Vol] 138 mmol/L Normal 136-144 [facility] Comment on above: Order Comment: Speci men Type: BLOOD SPECIMEN Ordering Facility: [facility] Address: [address] [place] [address] Performed By: #### 2 4321-2 #### [facility] CLIA [id number] [address] [place] [address] [place] Urea nitrogen [Mass/Vol] 27 mg/dL High 7-21 [facility] Comment on above: Order Comment: Speci men Type: BLOOD SPECIMEN Ordering Facility: [facility] Address: [address] [place] [address] Performed By: #### 2 4321-2 #### [facility] CLIA [id number] [address] [place] [address] [place] CK MB SerPl-mCncon 3 CK.MB [Mass/Vol] 2.7 ng/mL Normal <4.4 [facility] Comment on above: Order Comment: Speci men Type: BLOOD SPECIMENOrdering Facility: [facility] Address: [address] [place] [address] Performed By: #### H STNT, 75249-5, 2157-02, 24397-2 ####[facility] LABORATORYCLIA [id number] [place] [address] [place] CK SerPl-cCncon 06-20-2023 CK [Catalytic activity/Vol] 35 U/L Low 42-196 [facility] Comment on above: Order Comment: Speci men Type: BLOOD SPECIMENOrdering Facility: [facility] Address: [address] [place] [address] Performed By: #### H STNT, 45163-4, 2156, 24040-1 ####[facility] LABORATORYCLIA [id number] [place] [address] [place] CNPNon 06-20-2023 CNPN Telephone (MEPRAD) -- SANDY BHATTI ([id number]) 1965 F Date Time Provider Department 06/20/23 ARAM EDUARDO MEPRAD During your visit today, we recorded the following information about you: Aram Eduardo MD 06/20/2023 10:25 AM Signed Sandy Bhatti is a 58 year old female, fistula gram scheduled today. Pt. Is complaining of SOB Pre op EKG possible inferior STEMI, medical practice manager dr. Barros was called and said no [...] Rash Date Reviewed: 06/20/2023 Reviewed by: Chet Milan, RN - Fully Assessed Reason for Visit: Hospital To Hospital [[id number]] Cmt: Sandy Bhatti is a 58 year old female, fistula gram scheduled today. Pt. Is complaining of SOB Pre op EKG possible inferior STEMI, medical practice manager dr. Barros was called and said no [...] Encounter Status:Closed by SIMBA EDUARDO on 06/20/23 [facility] CONSULTon 06-20-2023 CONSULT HNO ID: [id number] Author: Otoniel Guy MD Service: Nephrology Author [...] first HD: 02/2018 Current HD unit: Awilda Kemmerer Rn Licensed Practical: Dr. Shelton Schedule: Mon-Mon-Mon Time: 4 hrs Last HD: Jun 19, 2023 PAST MEDICAL HISTORY: PAST MEDICAL HISTORY Diagnosis Date Acute kidney failure (HCC) 01/14/2018 Acute respiratory failure (HCC) Anxiety Arterial steal syndrome ([facility]) 12/2018 Left AVF Calculus of ureter 06/12/2007 CKD (chronic kidney disease) stage V requiring chronic dialysis ([facility]) 03/01/2018 Dr. Pendleton, nephrology. Congestive heart failure ([facility]) Constipation Depression 09/04/2006 GERD (gastroesophageal reflux disease) Hemorrhoids HTN (hypertension) 09/04/2001 Hyperlipidemia 09/04/1999 Hypertrophic cardiomyopathy (HCC) Proteinuria 06/14/2013 Renal colic 06/12/2007 Steal syndrome dialysis vascular access ([facility]) 05/17/2019 Recent increased left arm swelling, which was not previously present. She had an intervention in January on the mid subclavian vein for outflow stenosis. Her fistula is patent and working well. Assessment: 05/16/19 LUE DRIL (proximal brachial to distal brachial artery bypass with RLE rGSV - LUE fistula site c/d/i, +thrill/bruit, radial pulse palpable - RLE Stroke ([facility]) Thyroid disorder Tubular adenoma of colon 11/15/2022 Type II or unspecified type diabetes mellitus without mention of complication, not stated as uncontrolled 09/04/1985 VT (ventricular tachycardia) ([facility]) 05/17/2019 History: Per patient, has history of excited rhythm. Sees a medical practice manager in [place], last seen in January 2019. No concerns. [...] Right 04/21/2021 BOWEL RESECTION HX 2005 CHOLECYSTECTOMY 1985 Cholecystectomy COLONOSCOPY SCREENING 11/15/2022 COLOSTOMY/SKIN LEVEL CECOSTOMY 2006 [id number], reversed 2006 CREATION OF AVF, PERCUTANEOUS USING [...] OF LARGE BREAST 1990 SALPINGECTOMY OR OOPHERECTOMY-ECTOPIC 1985 SLING OPER STRES [...] lung cancer Coronary Artery Disease Brother dec. [place] 57 y.o. No Known Problems Maternal Grandmother [...] on F (more content not included)... Normal [facility] ECG COMPLETEon 06-20-2023 ECG COMPLETE Ventricular Rate : 6 8 BPM Atrial Rate : 67 BPM P-R Interval : 170 ms QRS Duration : 133 ms Q-T Interval : 457 ms QTC Calculation(Bazett) : 487 ms Calculated P [place] : -2 degrees Calculated R [place] : -38 degrees Calculated T [place] : 118 degrees Sinus rhythm Multiple ventricular premature complexes Right bundle branch block LVH with IVCD and secondary repol abnrm ST elevation, consider inferior injury or acute infarct Abnormal ECG Confirmed by AUGUSTUS VILLANUEVA MD ([id number]) on 06/29/2023 1:38:28 PM NAME : SANDY BHATTI PID : [id number] : 1965 Gender : Female Race : ORD : [id number] Procedure Date : Jun 20 2023 08:25:43 Edit Date : Oct 26 2023 13:38:29 Diagnosis: Sinus rhythm Multiple ventricular premature complexes Right bundle branch block LVH with IVCD and secondary repol abnrm ST elevation, consider inferior injury or acute infarct Abnormal ECG Confirmed by AUGUSTUS VILLANUEVA MD ([id number]) on 06/29/2023 1:38:28 PM Test Reason : Pre OP Location : 400 : FVEKG 17 Overread By : AUGUSTUS VILLANUEVA MD Edited By : UAGUSTUS VILLANUEVA MD Referred By : , Acquired by : NM, Normal [facility] HBV core Ab Ser Qlon 023 HBV core Ab Ql (S) Negative Normal Negative [facility] Comment on above: Order Comment: Bethany reeves Type: BLOOD SPECIMEN Ordering Facility: [facility] Address: [address] [place] [address] Result Comment: No e vidence of current or past infection with Hepatitis B virus. Should recent infection be suspected, repeat testing may be considered 3-4 weeks after this draw. Performed By: #### 1 6933-4 #### [facility] CLIA [id number] [id number] [place] [address] [place] HBV surface Ag Ser Qlon 06-04 HBV surface Ag Ql (S) Negative Normal Negative [facility] Comment on above: Order Comment: Bethany reeves Type: BLOOD SPECIMEN Ordering Facility: [facility] Address: [address] [place] [address] Performed By: #### 5 195-3 #### [facility] CLIA [id number] [place] [address] [place] HIGH SENSITIVITY TROPONIN To n 06-20-2023 Troponin T.cardiac High sensitivity method [Mass/Vol] 118 ng/L High <12 [facility] Comment on above: Order Comment: Bethany reeves Type: BLOOD SPECIMEN Ordering Facility: [facility] Address: [address] [place] [address] Result Comment: When assessing risk for acute [...] day MACE. Performed By: #### H STNT, 07714-3, 82677-1 #### [facility] CLIA [id number] Troponin T.cardiac High sensitivity method [Mass/Vol] 121 ng/L High <12 [facility] Comment on above: Order Comment: Speci men Type: BLOOD SPECIMENOrdering Facility: [facility] Address: [facility] [place] [address] Result Comment: When assessing risk for acute [...] day MACE. Performed By: #### H STNT, 30753-0, 2157-6, 23230-6 ####[facility] LABORATORYCLIA [id number] [place] [id number] [place] HISTORY PHYSICALon HISTORY PHYSICAL HNO ID: [id number] Author: Milagro Bruce MD Service: Hospital Medicine Author Type: Physician Type: HANDP Filed: 06/20/2023 6:10 PM Note Text: DEPARTMENT OF HOSPITAL MEDICINE HISTORY AND PHYSICAL EXAM SERVICE DATE: 06/20/2023 SERVICE TIME: 5:48 PM Primary Care Physician: Maldonado Raza MD NIGHT AND WEEKEND COVERAGE: CABLE COVERAGE:Team Subjective CHIEF COMPLAINT: Hyperkalemia HPI: This [...] kidney failure (HCC) 01/14/2018 Acute respiratory failure ([facility]) Anxiety Arterial steal syndrome ([facility]) 12/2018 Left AVF Calculus of ureter 06/12/2007 CKD (chronic kidney disease) stage V requiring chronic dialysis ([facility]) 03/01/2018 Dr. Pendleton, nephrology. Congestive heart failure ([facility]) Constipation Depression 09/04/2006 GERD (gastroesophageal reflux disease) Hemorrhoids HTN (hypertension) 09/04/2001 Hyperlipidemia 09/04/1999 Hypertrophic cardiomyopathy (HCC) Proteinuria 06/14/2013 Renal colic 06/12/2007 Steal syndrome dialysis vascular access ([facility]) 05/17/2019 Recent increased left arm swelling, which was not previously present. She had an intervention in January on the mid subclavian vein for outflow stenosis. Her fistula is patent and working well. Assessment: 05/16/19 LUE DRIL (proximal brachial to distal brachial artery bypass with RLE rGSV - LUE fistula site c/d/i, +thrill/bruit, radial pulse palpable - RLE Stroke ([facility]) Thyroid disorder Tubular adenoma of colon 11/15/2022 Type II or unspecified type diabetes mellitus without mention of complication, not stated as uncontrolled 09/04/1985 VT (ventricular tachycardia) ([facility]) 05/17/2019 History: Per patient, has history of excited rhythm. Sees a medical practice manager in [place], last seen in January 2019. No concerns. [...] COLONOSCOPY SCREENING 11/15/2022 COLOSTOMY/SKIN LEVEL CECOSTOMY 2006 [id number], reversed 2006 CREATION OF AVF, PERCUTANEOUS USING [...] lung cancer Coronary Artery Disease Brother dec. [place] 57 y.o. No Known Problems Maternal Grandmother [...] (HUMALOG KWIKP (more content not included)... Normal [facility] HISTORY PHYSICAL HNO ID: [id number] Author: Herberth Gan PA-C Service: Cardiovascular Disease Author Type: Physician Transportation Analyst Type: HANDP Filed: 06/20/2023 9:16 AM Note [...] 04/10/23one History of TIA: Yes History of [place]: No Diabetes: Yes History of Bleeding Issues: [...] which included preparing to see the patient, [id number] patient care, completing clinical documentation, obtaining and/or reviewing separately obtained history, performing a medically appropriate examination, and ordering medications, tests, or procedures. SIGNATURE: Herberth Gan PA-C PATIENT NAME: Sandy Bhatti DATE: June 20, 2023 TIME: 8:58 AM PAGER: [facility] Magnesium Jayl-mCju 06-20 Magnesium [Mass/Vol] 2.2 mg/dL Normal 1.7-2.3 [facility] Comment on above: Order Comment: Speci men Type: BLOOD SPECIMEN Ordering Facility: [facility] Address: [address] [place] [address] Performed By: #### H STNT, 39169-8, 56133-6 #### [facility] CLIA [id number] [place] [address] [facility] NURSING PROGon 06-20-2023 NURSING PROG HNO ID: [id number] Author: Shruthi Mcnally Service: Nursing Author Type: ? Type: Nursing Progress Note Filed: 06/20/2023 4:31 PM Note Text: Nursing Progress Note Topic of Note: Daily Note PATIENT NAME: Sandy Bhatti Patient Location: [place] [address] [address] 15-0 Room: [id number] 1600-Pt came from Dialysis, Dr. Bruce at bedside going over POC, VSS, BS 153, Orders for admitting being put in [place], SR on tele, no pain,numbness nor tingling from RUE site, Pt is moving independently, Call light within reach. This note was completed by: Shruthi Mcnally [facility] NURSING PROG HNO ID: [id number] Author: Chet Milan, RN Service: Nursing Author [...] Dr Barros, patient is not experiencing acute [place]. Will draw labs and admit patient. Cardiology [...] following dialysis. All belongings sent with patient. [facility] TYPE + SCREENon 06-20-2023 ABO A [facility] Comment on above: Order Comment: Speci men Type: BLOOD SPECIMENOrdering Facility: [facility] Address: [address] [place] [address] Performed By: #### T SCR ####[facility] BANKCLIA [id number] [address] HISTORICAL AB SCR STATUS Negative [facility] Comment on above: Order Comment: Speci men Type: BLOOD SPECIMENOrdering Facility: [facility] Address: [address] [place] [address] Performed By: #### T SCR ####[facility] BLO[facility] BANKCLIA [id number] [address] [place] Rh Nom (Bld) Positive [facility] Comment on above: Order Comment: Speci men Type: BLOOD SPECIMENOrdering Facility: [facility] Address: [address] [place] [address] Performed By: #### T SCR ####[facility] BLO[facility] BANKCLIA [id number] [address] TYPE AND SCREEN EXPIRATION 06/23/2023 23:59 [facility] Comment on above: Order Comment: Speci men Type: BLOOD SPECIMENOrdering Facility: [facility] Address: [address] [place] [address] Performed By: #### T SCR ####[facility] BLOOD BANKCLIA [id number] [address] [place] Generalized Anxiety Disorder -7on 05-31-2023 Generalized Anxiety Disorder-7 8 1 [facility] [address] Work Phone: Generalized Anxiety Disorder-7 2-More than half the days [facility] [address] Work Phone: [phone] Generalized Anxiety Disorder-7 1-Several days [facility] [place] [address] Work Phone: [phone] PHQ-9on 05-31-2023 Adult depression screening assessment Moderate (10-14) [facility] [place] [address] Work Phone: PHQ-9 1-Several days [facility] [place] [address] Work Phone: [phone] PHQ-9 0-Not at all [facility] [address] Work Phone: [phone] PHQ-9 2-More than half the days [facility] [address] Work Phone: [phone] PHQ-9 Somewhat Difficult [facility] [place] [address] Work Phone: [phone] SIPATon 05-31-2023 SIPAT 1) Mild Clinical Anxiety [facility] [address] Work Phone: [phone] SIPAT 0) No Clinical Naty [facility]-T ranspla nt-[facility] Physician Practice [employer] [address] Work Phone: [phone] SIPAT 0) No Clinical Psychosis [facility] [place] [address] Work Phone: [phone] SIPAT 0) None [facility] [address] Work Phone: [phone] SIPAT 0) Self-Initiated [facility] [place] [address] Work Phone: [phone] SIPAT 0) Excellent [facility] [place] [address] Work Phone: SIPAT 4) Moderate Psychopathology [facility] [address] Work Phone: [phone] SIPAT 2) Moderate Clinical Depression [facility] [address] Work Phone: SIPAT 21-39 Minimally Acce ptable Candidate [facility] [place] [address] Work Phone: [phone] SIPAT 0) Excellent Understanding [facility] [address] Work Phone: SIPAT 1) Good Understanding [facility] [place] [address] Work Phone: SIPAT 2) Mild [facility] [address] Work Phone: SIPAT 2) No Problematic Al cohol Use [facility] [place] [address] Work Phone: SIPAT 1) Low Risk [facility] [place] [address] Work Phone: SIPAT 4) Moderate Substanc e Use Disorder [facility] [address] Work Phone: SIPAT 2) Moderate Risk [facility]adi [facility] [address] Work Phone: SIPAT 1) Past Use [facility] [address] Work Phone: [phone] Initial Visit (Nephrology)on 05-30-2023 Initial Visit (Nephrology) Provider Impressions Ms. Sandy Bhatti is a 58-year-old female with a history of ESRD secondary to type 2 diabetes currently on dialysis since 02/14/2018. She is getting dialyzed on Monday at [facility] with the doctor Kristie. Seems to be [...] at the selection committee at the [facility] [place], [facility]. 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 In addition, the following were also discussed: [...] [facility] with the doctor Kristie. History in detail: [...] upper extremity fistula for which she gets CLINICAL LABORATORY AIDES TEACHER every year. -Denied any other issues with [...] of Saul (more content not included)... Normal [facility] - HLA antigenson 05-30-2023 HLA-A+B+C (class I) Ab (S) SEE COMMENT [facility] [employer] [address] Work Phone: Comment on above: HLA-CLASS I SP ANTIB DIEGO IDENTIFICATION, HIGH DEFINITION SEE SEPARATE REPORT.Test performed at [facility], [address] [place] [address] HLA-DP+DQ+DR (class II) Ab (S) SEE COMMENT [facility] [address] Work Phone: Comment on above: HLA-CLASS II SP ANTI BODY IDENTIFICATION, HIGH DEFINITION SEE SEPARATE REPORT.Test performed at [facility], [address] [address] [place] [address] HLA-A locus Nom (Bld/Tiss) Canceled [facility] [employer] [address] Work Phone: HLA-B locus Nom (Bld/Tiss) Canceled [facility] [employer] [address] Work Phone: HLA-C locus Nom (Bld/Tiss) Canceled [facility] [address] Work Phone: HLA-DP2 Ql (Bld/Tiss) Canceled [facility] Work Phone: [phone] HLA-DQB1 High resolution Nom (Bld/Tiss) Canceled [facility] Work Phone: [phone] HLA-DR+DQ Nom (Bld/Tiss) Canceled [facility] [address] Work Phone: [phone] No Panel Informationon 05-30 SEE SEPARATE REPORT [facility] [place] [address] Work Phone: Comment on above: Test performed at [facility] Laboratory [facility], [address] [place] [address] Canceled [facility] [place] [facility] Work Phone: Comment on above: Test performed at [facility], [address] [place] [address] Office VIsit (Pre-Transplant Surgery)on 05-30-2023 Follow-up visit Diagnosis/Problems Assessed Pre-transplant evaluation for kidney transplant (V72.83) (Z01.818) Patient Discussion/Summary Impression: Kidney Transplant: evaluation Patient Discussion: I had a discussion with this patient regarding 1 year graft and patient survival statistics following renal transplantation for both living and donor allograft recipients. This data included [facility] data compared to National data readily [...] suitability for renal transplant candidate listing at [facility] [place]. History of Present Illness Comments: SANDY BHATTI [...] myalgias. Integumentary: (more content not included)... Normal [facility] Tobacco Screening.on 023 Adult depression screening assessment No [facility] [employer] Work Phone: Fall risk assessment a) No falls within the last year [facility] [employer] [address] Work Phone: Tobacco use status [facility] b) No [facility] [employer] [address] Work Phone: Transplant Recipient Theodore miller 05-30-2023 Transplant SW Recipient Assessment Assessment Visit Type: This is [...] to relax. Kidney Dialysis: What D[facility], Began: 2017, In [facility], [facility], [...] meet current monthly expenses Primary Insurance: Self [facility] Dual Complete Plan Prescription Coverage: Copay [...] secondary supports are adequate. Primary Support Name: Age: 58 Relationship to Patient: Spouse If [...] your care? yes. Secondary Support: Name: Dontae. Xna: 70'sRelationship to Patient: Zvosyz-[id number] Can they take time off work? yes. [...] home. Type of Home: ranch. Distance to [facility]: 2 hours. Pets: 2 dogs, 2 cats. Does Patient Feel Safe in Home? yes. Transportation: Patient does have adequate transportation. # Licensed Drivers in the Home: 3. Does Patient Drive? no. If not, why? Pt stated she never wanted to learn to how to drive. # Relia (more content not included)... Normal [facility] [employer] BRIEF OP NOTon 04-10-2023 BRIEF OP NOT HNO ID: [id number] Author: April Jeter MD Service: Vascular Surgery Author Type: Resident Type: Brief Op Note Filed: 04/10/2023 2:48 PM Note Text: BRIEF OPERATIVE / PROCEDURE NOTE LOG ID: [id number] Surgery/Procedure Date: 04/10/2023 Incision/Procedure Start Time: 1:58 PM Incision Close/Procedure End Time: 2:31 PM Surgeon(s)/Proceduralist(s ) and Transportation Analyst(s): Surgeon(s) and Role: * Medardo Rogel MD - Primary * April Jeter MD - Resident - Assisting No Additional Staff Procedure(s): PERC THROMBECTOMY/INFUSION FOR THROMBOLYSIS AV FISTULA,FLUORO GUIDED,INCLUSIVE OF RAD NIDIA: 19179 (CPT?) Fluoro time: 4.9 min Radiation dose/AK: 69.9 Radiation surface area/DAP: 12,800 Contrast (mL): 30 mL Anesthesia: Procedural Sedation ASA Class: ASA Class:: III Findings: Stenoses in the innominate vein (70%), R subclavian v (50%) and Juxta- graft-graft anastomosis; All treated with CLINICAL LABORATORY AIDES TEACHER. Medications: Continue Home meds Post-operative Plan of [...] April 10, 2023 TIME: 2:36 PM Normal [facility] Basic metabolic 2000 panelon 04-10-2023 Anion gap [Moles/Vol] 11 mmol/L Normal 9-18 [facility] Comment on above: Order Comment: Bethany reeves Type: BLOOD SPECIMENOrdering Facility: [facility] Address: [address] [place] [phone] Performed By: #### 2 4321-2 ####CABLE LABORATORYCLIA [id number] [place] [address] [place] Calcium [Mass/Vol] 9.7 mg/dL Normal 8.5-10.2 [facility] Comment on above: Order Comment: Bethany reeves Type: BLOOD SPECIMENOrdering Facility: [facility] Address: [address] [address] Performed By: #### 2 4321-2 ####CABLE LABORATORYCLIA [id number] [place] [id number] [place] Chloride [Moles/Vol] 96 mmol/L Low 97-105 [facility] Comment on above: Order Comment: Speci men Type: BLOOD SPECIMENOrdering Facility: [facility] Address: [address] [place] [address] Performed By: #### 2 4321-2 ####CABLE LABORATORYCLIA [id number] [place] [id number] [place] CO2 [Moles/Vol] 32 mmol/L High 22-30 [facility] Comment on above: Order Comment: Speci men Type: BLOOD SPECIMENOrdering Facility: [facility] Address: [address] [place] [address] Performed By: #### 2 4321-2 ####CABLE LABORATORYCLIA [id number] [place] [id number] [place] Creatinine [Mass/Vol] 3.88 mg/dL High 0.58-0.96 [facility] Comment on above: Order Comment: Speci men Type: BLOOD SPECIMENOrdering Facility: [facility] Address: [address] [place] [address] Performed By: #### 2 4321-2 ####CABLE LABORATORYCLIA [id number] [place] [id number] [facility] OF [place] ESTIMATED GLOMERULAR FILTRATION RATE 13 mL/min/1.73m??? Low >=60 [facility] Comment on above: Order Comment: Speci men Type: BLOOD SPECIMENOrdering Facility: [facility] Address: [address] [place] [address] Result Comment: Mary mated Glomerular Filtration Rate [...] actual GFR. Performed By: #### 2 4321-2 ####[facility] LABORATORYCLIA [id number] [place] [address] [place] Glucose [Mass/Vol] 185 mg/dL High 74-99 [facility] Comment on above: Order Comment: Bethany lala Type: BLOOD SPECIMENOrdering Facility: [facility] Address: [address] [place] [address] Result Comment: The [place] [employer] Association (ADA) provides guidance for cutoff [...] Standards of Medical Care in Diabetes 2016, [place] [employer]. Diabetes Care. 2016.39(Suppl 1). Performed By: #### 2 4321-2 ####[facility] LABORATORYCLIA [id number] [place] [address] [place] Potassium [Moles/Vol] 4.5 mmol/L Normal 3.7-5.1 [facility] Comment on above: Order Comment: Bethany lala Type: BLOOD SPECIMENOrdering Facility: [facility] Address: [address] [place] [address] Performed By: #### 2 4321-2 ####JOSE LABORATORYCLIA [id number] [place] [address] [place] Sodium [Moles/Vol] 139 mmol/L Normal 136-144 [facility] Comment on above: Order Comment: Angelai men Type: BLOOD SPECIMENOrdering Facility: [facility] Address: [address] [place] [address] Performed By: #### 2 4321-2 ####[facility] LABORATORYCLIA [id number] [address] Urea nitrogen [Mass/Vol] 19 mg/dL Normal 7- [facility] Comment on above: Order Comment: Speci men Type: BLOOD SPECIMENOrdering Facility: [facility] Address: [address] [place] [phone] Performed By: #### 2 4321-2 ####CABLE LABORATORYCLIA [id number] [address] ECG COMPLETEon 04-10-2023 ECG COMPLETE Ventricular Rate : 8 2 BPM Atrial Rate : 82 BPM P-R Interval : 172 ms QRS Duration : 133 ms Q-T Interval : 431 ms QTC Calculation(Bazett) : 504 ms Calculated P [place] : 49 degrees Calculated R [place] : -46 degrees Calculated T [place] : 106 degrees Sinus rhythm Probable left atrial enlargement Right bundle branch block LVH with IVCD and secondary repol abnrm Abnormal ECG Confirmed by MARCO FRANCE MD ([id number]) on 04/10/2023 4:48:17 PM NAME : SANDY BHATTI PID : [id number] : 1965 Gender : Female Race : ORD : [id number] Procedure Date : Apr 10 2023 12:36:02 Edit Date : Apr 10 2023 16:48:18 Diagnosis: Sinus rhythm Probable left atrial enlargement Right bundle branch block LVH with IVCD and secondary repol abnrm Abnormal ECG Confirmed by MARCO FRANCE MD ([id number]) on 04/10/2023 4:48:17 PM Test Reason : Pre OP Location : 400 : [facility] 213 Overread By : MARCO FRANCE MD Edited By : MARCO FRANCE MD Referred By : MEDARDO ROGEL Acquired by : [id number], Normal [facility] HISTORY PHYSICALon HISTORY PHYSICAL HNO ID: [id number] Author: Inna Hylton APRN.SCREW MACHINE OPERATOR SWISS TYPE, DNP Service: Cardiovascular Medicine Author Type: Nurse [...] AV FISTULA,FLUORO GUIDED,INCLUSIVE OF RAD NIDIA - PAST MEDICAL HISTORY: PAST MEDICAL HISTORY Diagnosis Date Acute kidney failure (HCC) 01/14/2018 Acute respiratory failure (HCC) Anxiety Arterial steal syndrome (HCC) 12/2018 Left AVF Calculus of ureter 06/12/2007 CKD (chronic kidney disease) stage V requiring chronic dialysis ([facility]) 03/01/2018 Dr. Pendleton, nephrology. Constipation Depression 09/04/2006 GERD (gastroesophageal reflux disease) Hemorrhoids HTN (hypertension) 09/04/2001 Hyperlipidemia 09/04/1999 Hypertrophic cardiomyopathy (HCC) Proteinuria 06/14/2013 Renal colic 06/12/2007 Steal syndrome dialysis vascular access ([facility]) 05/17/2019 Recent increased left arm swelling, which [...] stated as uncontrolled 09/04/1985 VT (ventricular tachycardia) ([facility]) 05/17/2019 History: Per patient, has history of excited rhythm. Sees a medical practice manager in [place], last seen in January 2019. No concerns. [...] BOWEL RESECTION HX 2006 CHOLECYSTECTOMY 1984 Cholecystectomy COLONOSCOPY SCREENING 11/15/2022 COLOSTOMY/SKIN LEVEL CECOSTOMY 2007 [id number], reversed 2007 CREATION OF AVF, PERCUTANEOUS USING [...] lung cancer Coronary Artery Disease Brother dec. [place] 57 y.o. No Known Problems Maternal Grandmother [...] empty stomach (more content not included)... Normal [facility] NURSING PROGon 04-10-2023 NURSING PROG HNO ID: [id number] Author: Pam Bartlett RN Service: Nursing Author Type: Registered Nurse Type: Nursing Progress Note Filed: 04/10/2023 3:45 PM Note Text: Nursing Progress Note Topic of Note: post procedure PATIENT NAME: Sandy Bhatti Patient Location: LOSS PREVENTION RESEARCH ENGINEER POOL/ LOSS PREVENTION RESEARCH ENGINEER POOL Room: LOSS PREVENTION RESEARCH ENGINEER POOL ( INVASIVE CARDIOLOGY) Report received from [...] in stable condition. All belongings returned. Warren driving. This note was completed by: Pam Bartlett [facility] NURSING PROG HNO ID: [id number] Author: Lakshmi Hernandez RN Service: Nursing Author Type: Registered Nurse Type: Nursing Progress Note Filed: 04/10/2023 2:58 PM Note Text: Nursing Progress Note Topic of Note: POST PROCEDURE PATIENT NAME: Sandy hBatti Patient Location: LOSS PREVENTION RESEARCH ENGINEER POOL/ LOSS PREVENTION RESEARCH ENGINEER POOL Room: LOSS PREVENTION RESEARCH ENGINEER POOL ( INVASIVE CARDIOLOGY) 1445 S/p RUE fistulagram. See intra op notes for meds given during procedure. RUE dressing CDI. Site free from bleeding and hematoma. + Bruit and thrill. + R radial pulse. Movement and sensation intact to RUE. Tele-SR. Family at bedside. Pt provided lunch, tolerating well. This note was completed by: Lakshmi Hernandez [facility] OPERATIVE NOon 04-10-2023 OPERATIVE NO HNO ID: [id number] Author: Medardo Rogel MD Service: Vascular Surgery Author Type: Physician Type: Operative Report Filed: 04/22/2023 10:46 AM Note Text: OPERATIVE/PROCEDURE REPORT LOG ID: [id number] Surgery/Procedure Date: 04/10/2023 Incision/Procedure Start Time: 1:58 PM Incision Close/Procedure End Time: 2:31 PM Surgeon(s)/Proceduralist(s ) and Transportation Analyst(s): Surgeon(s) and Role: * Medardo Rogel MD [...] details: The patient was taken to the laboratory worker and laid supine on the table. A [...] the procedure with assistance. Medardo Rogel MD [facility] .Auto Diffon 02-01-2023 Basophil, Absolute 0.0 10 3/mcL Normal 0.0-0.3 [facility] ([place]) Comment on above: Performed By: #### C LOTUS NUÑEZ ANEU #### [address] [address] Basophils/100 WBC (Bld) 0.6 % Normal 0.0-2.5 [facility] ([place] Comment on above: Performed By: #### C LOTUS NUÑEZ ANEU #### [address] [address] Eosinophil, Absolute 0.0 10 3/mcL Normal 0.0-0.7 [facility] ([place] Comment on above: Performed By: #### C LOTUS NUÑEZ ANEU #### [address] [address] Eosinophils/100 WBC (Bld) 0.9 % Normal 0.0-6.0 [facility] ([place] Comment on above: Performed By: #### C LOTUS NUÑEZ, ANEU #### [address] [address] Lymphocyte, Absolute 0.6 10 3/mcL Low 0.9-4.3 [facility] ([place] Comment on above: Performed By: #### C LOTUS NUÑEZ, ANEU #### [address] [address] Lymphocytes/100 WBC (Bld) 12.1 % Low 20.0-40.0 [facility] ([place] Comment on above: Performed By: #### C LOTUS NUÑEZ, ANEU #### [address] [address] Monocyte, Absolute 0.4 10 3/mcL Normal 0.1-1.4 [facility] ([place] Comment on above: Performed By: #### C LOTUS NUÑEZ, ANEU #### [address] [address] Monocytes/100 WBC (Bld) 8.0 % Normal 2.0-13.0 [facility] ([place] Comment on above: Performed By: #### C LOTUS NUÑEZ, ANEU #### [address] [address] Neutrophils/100 WBC (Bld) 78.4 % High 50.0-75.0 [facility] ([place] Comment on above: Performed By: #### LOTUS KENNY, ANEU #### [address] [address] .GFRon 02-01-2023 GFR 16 ml/min/1.73sqm Normal Critical [...] Performed By: #### B MP, GFR #### [address] [address] GFR Non- 13 ml/min/1.73sqm Normal [facility] ([place] Comment on above: Result Comment: GFR Population [...] Performed By: #### B MP, GFR #### [address] [address] .NEUABSon 02-01-2023 Neutrophil, Absolute 3.9 10 3/mcL Normal 2.3-8.1 [facility] ([place] Comment on above: Performed By: #### C BC, ADIFF, ANEU #### [address] [address] BMPon 02-01-2023 BUN/Creatinine Ratio 5.7 ratio Low 10.0-22.0 [facility] ([place] Comment on above: Performed By: #### B MP, GFR #### [address] [address] Calcium [Mass/Vol] 9.2 mg/dL Normal 8.7-10.4 [facility] ([place] Comment on above: Performed By: #### B MP, GFR #### [address] [address] Chloride [Moles/Vol] 100 mmol/L Normal 98-110 [facility] ([place] Comment on above: Performed By: #### B MP, GFR #### [address] [address] CO2 [Moles/Vol] 36 mmol/L High 22-32 [facility] ([place] Comment on above: Performed By: #### B MP, GFR #### [address] [address] Creatinine [Mass/Vol] 3.52 mg/dL High 0.50-1.20 [facility] ([place]) Comment on above: Performed By: #### B MP, GFR #### [address] [address] Electrolyte Balance 2.0 mEq/L Low 4.0-15.0 [facility] ([place] Comment on above: Performed By: #### B MP, GFR #### [address] [address] Glucose [Mass/Vol] 223 mg/dL High 70-110 [facility] ([place] Comment on above: Performed By: #### B MP, GFR #### [address] [address] Potassium [Moles/Vol] 4.2 mmol/L Normal 3.5-5.0 [facility] ([place]) Comment on above: Result Comment: Spec imen slightly hemolyzed. Performed By: #### B MP, GFR #### [address] [address] Sodium [Moles/Vol] 138 mmol/L Normal 136-145 [facility] ([place] Comment on above: Performed By: #### B MP, GFR #### [place] [address] Urea nitrogen [Mass/Vol] 20.0 mg/dL Normal 8.0-22.0 [facility] ([place] Comment on above: Performed By: #### B MP, GFR #### [place] [address] CBCon 02-01-2023 Erythrocyte distribution width (RBC) [Ratio] 13.5 % Normal 11.5-15.5 [facility] ([place] Comment on above: Performed By: #### C LOTUS NUÑEZ, ANEU #### [place] [address] Hematocrit (Bld) [Volume fraction] 28.4 % Low 34.0-46.0 [facility] ([place] Comment on above: Performed By: #### LOTUS KENNY, ANEU #### [place] [address] Hgb 9.6 G/dL Low 12.0-16.0 [facility] [place] Comment on above: Performed By: #### LOTUS KENNY, ANEU #### [place] [address] MCH (RBC) [Entitic mass] 32.5 pg Normal 27.0-33.0 [facility] ([place] Comment on above: Performed By: #### LOTUS KENNY, ANEU #### [place] [address] MCHC 33.7 G/dL Normal 32.0-36.0 [facility] ([place] Comment on above: Performed By: #### LOTUS KENNY, ANEU #### [place] [address] MCV (RBC) [Entitic vol] 96.5 fL Normal 80.0-99.0 [facility] ([place] Comment on above: Performed By: #### LOTUS KENNY, ANEU #### [place] [address] Platelet 148 10 3/mcL Low 150-450 [facility] ([place] Comment on above: Performed By: #### C LOTUS NUÑEZ ANEU #### [facility] [address] [place] [address] Platelet mean volume (Bld) [Entitic vol] 7.5 fL Normal 6.6-10.5 [facility] ([place] Comment on above: Performed By: #### C LOTUS NUÑEZ ANEU #### [facility] [address] [place] [address] RBC 2.94 10 6/mcL Low 4.10-5.30 [facility] ([place] Comment on above: Performed By: #### C LOTUS NUÑEZ ANEU #### [address] [address] WBC 5.0 10 3/mcL Normal 4.5-10.8 [facility] ([place] Comment on above: Performed By: #### C LOTUS NUÑEZ ANEU #### [address] [address] LABORATORYOrdered By: SYSTEM SYSTEM on 02-01-2023 Basophils (Bld) [#/Vol] 0.0 103/mcL Invalid Interpretation Code 0.0 - 0.3 10^3/mcL Workflow SS Basophils/100 WBC (Bld) 0.6 % Invalid Interpretation Code 0.0 - 2.5 % Workflow SS Calcium [Mass/Vol] 9.2 mg/dL Invalid [...] Invalid Interpretation Code 0.0 - 0.7 10^3/mcL AH Workflow SS Eosinophils/100 WBC (Bld) 0.9 % Invalid Interpretation Code 0.0 - 6.0 % Workflow SS Erythrocyte distribution width (RBC) [Ratio] 13.5 % Invalid Interpretation Code 11.5 - 15.5 % AH Workflow SS GFR/1.73 sq M.predicted among blacks MDRD (S/P/Bld) [Vol rate/Area] 16 ml/min/1.73sqm Invalid Interpretation Code Chemistry S GFR/1.73 sq M.predicted among non-blacks MDRD (S/P/Bld) [Vol rate/Area] 13 ml/min/1.73sqm Invalid Interpretation Code Chemistry S Glucose [Mass/Vol] 223 mg/dL Invalid Interpretation Code 70 - 110 mg/dL AH ADM SS Hematocrit (Bld) [Volume fraction] 28.4 % Invalid Interpretation Code 34.0 - 46.0 % Workflow SS Hemoglobin (Bld) [Mass/Vol] 9.6 G/dL Invalid Interpretation Code 12.0 - 16.0 G/dL AH Workflow SS Lymphocytes (Bld) [#/Vol] 0.6 103/mcL [...] Invalid Interpretation Code 0.1 - 1.4 10^3/mcL AH Workflow SS Monocytes/100 WBC (Bld) 8.0 % Invalid Interpretation Code 2.0 - 13.0 % AH Workflow SS Neutrophils (Bld) [#/Vol] 3.9 103/mcL Invalid Interpretation Code 2.3 - 8.1 10^3/mcL AH Workflow SS Neutrophils/100 WBC (Bld) 78.4 % Invalid Interpretation Code 50.0 - 75.0 % Workflow SS Platelet mean volume (Bld) [Entitic vol] 7.5 fL Invalid Interpretation Code 6.6 - 10.5 fL Workflow SS Platelets (Bld) [#/Vol] 148 103/mcL Invalid Interpretation Code 150 - 450 10^3/mcL AH Workflow SS Potassium [Moles/Vol] 4.2 mmol/L Invalid Interpretation Code 3.5 - 5.0 mEq/L AH ADM SS Comment on above: Result Comment: Spec imen slightly hemolyzed. RBC (Bld) [#/Vol] 2.94 106/mcL Invalid Interpretation Code 4.10 - 5.30 10^6/mcL AH Workflow SS Sodium [Moles/Vol] 138 mmol/L Invalid Interpretation Code 136 - 145 mEq/L AH ADM SS Urea nitrogen [Mass/Vol] 20.0 mg/dL Invalid Interpretation Code 8.0 - 22.0 mg/dL AH ADM SS Urea nitrogen/Creatinine [Mass ratio] 5.7 [...] 14.8 seconds AH Auto Coag SS PROon 02-01-2023 INR Coag (PPP) [Relative time] 0.8 {INR} Normal [facility] ([place] Comment on above: Result Comment: The [place] [employer] (CHEST, 1992, 102:312S-25S) recommended therapeutic range for oral anticoagulant therapy is: LOW RISK: Prophylaxis of venous thrombosis INR: 2.0-3.0 Treatment of pulmonary embolism 2.0-3.0 Prevention of systemic embolism 2.0-3.0 HIGH RISK: Mechanical prosthetic valves 2.5-3.5 Performed By: #### P RO #### [facility] [address] [place] [address] PT Coag (PPP) [Time] 9.8 s Normal 9.0-14.8 [facility] ([place]) Comment on above: Result Comment: Effe ctive 03/18/08, Protime results may be affected by some antibiotics (i.e. Ciprofloxacin, Azithromycin, Bactrim) which may potentiate the action of oral anticoagulants, with further increases in Protime/INR. Performed By: #### P RO #### [facility] [address] [place] [address] ANES POSTPROC EVALon 023 ANES POSTPROC EVAL HNO ID: [id number] Author: Nikhil Dinero MD Service: Anesthesiology Author Type: Anesthesiologist Type: Anesthesia Postprocedure Evaluation Filed: 11/15/2022 10:50 AM Note Text: POST ANESTHESIA EVALUATION NOTE : 1965 Procedure Summary Date: 11/15/22 Room / Location: [facility] Endoscopy Anesthesia Start: 909 Anesthesia Stop: 1000 Procedure: COLONOSCOPY SCREENING Diagnosis: Special screening for malignant neoplasms, colon Pre-op evaluation (Screening in patient at increased risk: FH of 1st-deg relative with colon cancer) Scheduled Providers: Ge Fuller MD; Kaitlynn Castaneda APRN.CYCLING INSTRUCTOR; Nikhil Dinero MD Responsible Provider: Nikhil Dinero [...] November 15, 2022 TIME: 10:50 AM CSN: [id number] Normal [facility] ANES PRE-OPon 11-15-2022 ANES PRE-OP HNO ID: [id number] Author: Nikhil Dinero MD Service: Anesthesiology Author Type: Anesthesiologist Type: Anesthesia Preprocedure Evaluation Filed: 11/15/2022 8:13 AM Note Text: ANESTHESIOLOGY DAY OF SURGERY NOTE : 1965 Procedure Information Date/Time: 11/15/22 0900 Scheduled providers: Ge Fuller MD; Kaitlynn Castaneda APRN.CYCLING INSTRUCTOR; Nikhil Dinero MD Procedure: COLONOSCOPY SCREENING Location: [facility] Endoscopy Estimated body mass index is [...] with long-term current use of insulin (HCC) (+) Hypothyroid -RENAL (+) ESRD (end stage renal disease) (HCC) (+) ESRD on dialysis (HCC) I - PHYSICAL EVALUATION AIRWAY Patient intubated: [...] November 15, 2022 TIME: 8:13 AM CSN: [id number] Normal [facility] COLONOSCOPY SCREENINGon 11-02 [facility] Colonoscopyon 11-15-2022 Colonoscopy [facility] Gastrointestinal Endoscopy Patient Name: Sandy Bhatti Procedure Date: 11/15/2022 8:53 AM Date of : 1965 Admit Type: Outpatient Age: 57 Room: [facility] Gender: Female Note Status: Finalized Attending MD: [...] prior dose. Procedure Code(s): --- Professional --- 28131, Colonoscopy, flexible; with removal of tumor(s), polyp(s), or other lesion(s) by snare technique 61405, 59, Colonoscopy, flexible; with biopsy, single or multiple Diagnosis Code(s): --- Professional --- Z12.11, Encounter for screening for malignant neoplasm of colon Z80.0, Family history of malignant neoplasm of digestive organs D12.0, Benign neoplasm of cecum D12.3, Benign neoplasm of transverse colon (hepatic flexure or splenic flexure) CPT copyright 2020 [place] [employer]. All rights reserved. The codes documented in this report are preliminary and upon boat repairer review may be revised to meet current compliance requirements. Attending Participation: I personally performed the entire procedure. Scope In: 9:17:14 AM Scope Out: 9:54:22 AM MD Ge Allen MD 11/15/2022 9:59:28 AM This report has been signed electronically by Ge Fuller MD Number of Addenda: 0 Note Initiated On: 11/15/2022 8:53 AM Estimated Blood Loss: Estimated blood loss was minimal. Normal [facility] GLUCOSE, BLOOD (POC)on 11-15 Glucose [Mass/Vol] 198 mg/dL Abnormal 74 - 99 mg/dL [facility] Glucose [Mass/Vol] 161 mg/dL Abnormal 74 - 99 mg/dL [facility] HISTORY PHYSICALon HISTORY PHYSICAL HNO ID: [id number] Author: Ge Fuller MD Service: General Surgery [...] was reversed in '07 per records in [facility]. Patient's past medical history is significant for [...] has history of excited rhythm. Sees a medical practice manager in [place], last seen in January 2019. No concerns. [...] 2006 CHOLECYSTECTOMY 1984 Cholecystectomy COLOSTOMY/SKIN LEVEL CECOSTOMY 2007 0614-8010, reversed 2006 CREATION OF AVF, PERCUTANEOUS USING [...] 8 Units subcutaneously (more content not included)... Normal [facility] SURGICAL PATHOLOGYon 023 CASE REPORT [facility] Comment on above: Order Comment: Bethany reeves Type: TISSUE SPECIMEN Ordering Facility: [facility] Address: [address] [address] Result Comment: Surg ical Pathology Report Case: [id number] Authorizing Provider: Ge Fuller MD Collected: 11/15/2022 09:34 AM Ordering Location: [facility] Endoscopy Received: 11/15/2022 02:20 PM Pathologist: Peterson Richey MD Specimens: A) - CECUM BIOPSY B) - TRANSVERSE COLON POLYP, Transverse Colon Polyps times 2 Performed By: #### S #### [id number] [address] [place] [address] FINAL DIAGNOSIS [facility] Comment on above: Order Comment: Angelai alla Type: TISSUE SPECIMEN Ordering Facility: [facility] Address: [address] [place] [address] Result Comment: A. C ecal polyp, biopsy: - Inflammatory-type polyp, negative for dysplasia. B. Transverse colon polyps, biopsies: - Fragments of tubular adenoma. - Melanosis coli. JEL 11/16/2022 Performed By: #### S #### [facility] CLIA [id number] [address] [place] [address] [place] FINAL PERFORMING LAB Normal [facility] Comment on above: Order Comment: Speci men Type: TISSUE SPECIMEN Ordering Facility: [facility] Address: [address] [address] Result Comment: Diag nostic interpretation performed at [facility], [address] [place] [address] CLIA# [id number] Wastewater Plant Operator: Harshal Umanzor M.D. Performed By: #### S #### [facility] CLIA [id number] [address] [place] [address] GROSS DESCRIPTION A. CECUM BIOPSY Normal [facility] Comment on above: Order Comment: Speci men Type: TISSUE SPECIMEN [facility] [facility] Address: [address] [address] Result Comment: Rece ived in formalin are two pieces of morrison, soft tissue aggregating to 0.4 x 0.2 x 0.2 cm. Totally submitted in one cassette. B. TRANSVERSE COLON POLYP Received in formalin are multiple pieces of morrison, soft tissue aggregating to 0.8 x 0.2 x 0.2 cm. Totally submitted in one cassette. Gross examination performed at [facility], [address] 11/15/2022 4:51 PM Performed By: #### S #### [facility] CLIA [id number] [address] [place] [address] Absolute lymphocyte countOrd ered By: Dr. Torrez on 09-19-2022 Lymphocytes Auto (Unsp spec) [#/Vol] 1.02 10*3/uL 0.83-4.51 [facility] Basophil percentageOrdered B y: Dr. Torrez on 09-19-2022 Basophil percentage 25-50 SEEN /hpf 0-5 [facility] Basophils/100 WBC (Bld) 1.2 % 0-1 [facility] Chloride [Moles/Vol] 98 mmol/L 98-107 [facility] Eosinophils/100 WBC (Bld) 2.1 % 0-5 [facility] Glucose [Mass/Vol] 166 mg/dL 74-106 [facility] Comment on above: Fasting Glucose resu lt greater than or equal to 126 mg/dL suggests DIABETES MELLITUS per A.D.A. criteria. Neutrophils (Bld) [#/Vol] 2.7 10*3/uL 2.0-7.7 [facility] Neutrophils/100 WBC (Bld) 62.9 % 47-70 [facility] Potassium [Moles/Vol] 3.4 mmol/L 3.5-5.1 [facility] Sodium [Moles/Vol] 139 mmol/L 136-145 [facility] WBC (Bld) [#/Vol] 4.2 10*3/uL 4.4-11.0 [facility] Bilirubin Test strip Ql (U)O rdered By: Dr. Torrez on 09-19-2022 Bilirubin Ql (U) 3 mg/dL Negative [facility] Comment on above: COLOR OF URINE MAY A FFECT DIPSTICK RESULTS. Blood erythrocytes count (nu mber/volume)Ordered By: Dr. Torrez on 09-19-2022 RBC (Bld) [#/Vol] 3.40 10*6/uL 4.2-5.4 [facility] Blood hemoglobin measurement (mass/volume)Ordered By: Dr. Torrez on 09-19-2022 Hemoglobin (Bld) [Mass/Vol] 10.8 g/dL 12.0-15.0 [facility] Blood lymphocytes/100 leukoc ytesOrdered By: Dr. Torrez on 09-19-2022 Lymphocytes/100 WBC (Bld) 24.1 % 19-41 [facility] Blood monocytes/100 leukocyt esOrdered By: Dr. Torrez on 09-19-2022 Monocytes/100 WBC (Bld) 8.5 % 0-10 [facility] Blood platelet mean volumeOr dered By: Dr. Torrez on 09-19-2022 Platelet mean volume (Bld) [Entitic vol] 8.8 fL 6.2-12.0 [facility] Determination of erythrocyte mean corpuscular volume (MCV)Ordered By: Dr. Torrez on 09-19-2022 MCV (RBC) [Entitic vol] 99.4 fL 81-99 [facility] Hematocrit Auto (Bld) [Volum e fraction]Ordered By: Dr. Torrez on 09-19-2022 Hematocrit (Bld) [Volume fraction] 33.8 % 37-47 [facility] Ketones Test strip Ql (U)Ord ered By: Dr. Torrez on 09-19-2022 Ketones Ql (U) 5 mg/dl Negative [facility] Laboratory - Chemistry and C hemistry - challengeOrdered By: Dr. Torrez on 09-19-2022 CO2 [Moles/Vol] 34.0 mmol/L 21.0-32.0 [facility] Urea nitrogen/Creatinine [Mass ratio] 4.0 mg/mg 10-20 [facility] Laboratory - Hematology and Cell countsOrdered By: Dr. Torrez on 09-19-2022 Erythrocyte distribution width (RBC) [Entitic vol] 46.0 fL 35.1-43.9 [facility] Erythrocyte distribution width (RBC) [Ratio] 12.6 % 11.6-14.6 [facility] Immature granulocytes/100 WBC (Bld) 1.200 % 0.0-0.9 [facility] Comment on above: IG% - Immature Granu locytes (promyelocytes, myelocytes and metamyelocytes) > 1% indicates that a LEFT SHIFT is Present. MCH (RBC) [Entitic mass] 31.8 pg 27.0-32.0 [facility] Nucleated RBC/100 WBC (Bld) [Ratio] 0 % 0-5 [facility] MCHC Auto (RBC) [Mass/Vol]Or dered By: Dr. Torrez on 09-19-2022 MCHC (RBC) [Mass/Vol] 32.0 g/dL 32-36 [facility] Mucus LM Ql (Urine sed)Order ed By: Dr. Torrez on 09-19-2022 Mucus Ql (Urine sed) 0 SEEN /hpf [facility] Nitrite Test strip Ql (U)Ord ered By: Dr. Torrez on 09-19-2022 Nitrite Ql (U) Negative Negative [facility] No Panel InformationOrdered By: Dr. Torrez on 09-19-2022 Estimated Creatinine Clearance Calc 13.78 ml/min [facility] Estimated GFR (MDRD) Amer 17 mL/min >60 [facility] Comment on above: GFR Calc Estimated GFR (MDRD) Non-Af Amer 14 mL/min >60 [facility] Comment on above: Non- GFR Calc Platelets bldOrdered By: Dr. Torrez on 09-19-2022 Platelets (Bld) [#/Vol] 182 10*3/uL 150-450 [facility] Protein Test strip Ql (U)Ord ered By: Dr. Torrez on 09-19-2022 Protein Ql (U) 500 mg/dl Negative [facility] Serum or plasma calcium vignesh urement (mass/volume)Ordered By: Dr. Torrez on 09-19-2022 Calcium [Mass/Vol] 9.1 mg/dL 8.5-10.1 [facility] Serum or plasma creatinine m easurement (mass/volume)Ordered By: Dr. Torrez on 09-19-2022 Creatinine [Mass/Vol] 3.52 mg/dL 0.55-1.02 [facility] Comment on above: The validity of the calculated GFR & GFRAA in patients over 70 years has not been determined. Clinical correlation is essential. Serum or plasma urea nitroge n measurement (mass/volume)Ordered By: Dr. Torrez on 09-19-2022 Urea nitrogen [Mass/Vol] 14 mg/dL 7-18 [facility] Squamous epithelial cells de tection in urine sediment by light microscopyOrdered By: Dr. Torrez on 09-19-2022 Epithelial cells.squamous LM Ql (Urine sed) 5-10 SEEN /hpf 5-10 [facility] Thin prep Papanicolaou smear with manual screeningOrdered By: Dr. Torrez on 09-19-2022 Thin prep Papanicolaou smear with manual screening 7 5-15 [facility] Urine blood detectionOrdered By: Dr. Torrez on 09-19-2022 RBC Ql (U) 50 /ul Negative [facility] RBC Ql (U) 0-5 SEEN /hpf 0-5 [facility] Urine clarityOrdered By: Dr. Torrez on 09-19-2022 Clarity (U) Sl. Cloudy Clear [facility] Urine color determinationOrd ered By: Dr. Torrez on 09-19-2022 Color (U) Yellow Yellow [facility] Urine glucose detectionOrder ed By: Dr. Torrez on 09-19-2022 Glucose Ql (U) 100 mg/dl Normal [facility] Urine leukocyte esterase det ection by dipstickOrdered By: Dr. Torrez on 09-19-2022 Leukocyte esterase Test strip Ql (U) 500 /ul Negative [facility] Urine pHOrdered By: Dr. Romain figueroa on 09-19-2022 pH (U) 8.0 [pH] 5.0 - 8.0 [facility] Urine sediment bacteria coun t by microscopy (number/high power field)Ordered By: Dr. Torrez on 09-19-2022 Bacteria LM.HPF (Urine sed) [#/Area] 2 /[HPF] None Seen [facility] Urine specific gravity measu rementOrdered By: Dr. Torrez on 09-19-2022 Specific gravity (U) [Rel density] 1.010 1.002-1.030 [facility] Urobilinogen Auto test strip Ql (U)Ordered By: Dr. Torrez on 09-19-2022 Urobilinogen Ql (U) Normal mg/dl Normal [facility] KUNAL SCREENINGon 07-05-2022 [facility] Blood Typing (ABO + Rho D)on 03-29-2022 ABO group Nom (Bld) A [facility] Work Phone: Rh immune globulin screen (Bld) [Interp] Positive [facility] Work Phone: Blood Urea Nitrogen, Serumon 03-29-2022 Urea nitrogen [Mass/Vol] 35 mg/dL above high threshold 6 - 23 [facility] Work Phone: Comment on above: SOURCE: C Peptide, Serumon 2 C peptide [Mass/Vol] 1.6 ng/mL 0.7 - 3.9 [facility] Work Phone: CMV IgGon 03-29-2022 CMV IgG Reactive Abnormal See Below [facility] Work Phone: Comment on above: SOURCE: Reference Ra nge: NONREACTIVE Creatinine, Serumon 03-29-20 22 Creatinine [Mass/Vol] 5.71 mg/dL above high threshold See Below [facility] Work Phone: Comment on above: SOURCE: Reference Ra nge: 0.50 - 1.05 Creatinine, Serum 8 {mL/min/1.73m2} Abnormal >90 [facility] Work Phone: Comment on above: CALCULATIONS OF MARY MATED GFR ARE PERFORMED USING THE 2020 CKD-EPI STUDY REFIT EQUATION WITHOUT THE RACE VARIABLE FOR THE IDMS-TRACEABLE CREATININE METHODS.https://jasn.asnjournals.org/content/early// N.9926916226 Falls Screening (Age 18+)on 03-29-2022 Fall risk assessment a) No falls within the last year [facility] Work Phone: Tobacco use status CPHS b) No [facility] Work Phone: Generalized Anxiety Disorder -7on 03-29-2022 Generalized Anxiety Disorder-7 11 1 [facility] Work Phone: Generalized Anxiety Disorder-7 1-Several days [facility] Work Phone: Generalized Anxiety Disorder-7 2-More than half the days [facility] Work Phone: Generalized Anxiety Disorder-7 3-Nearly every day [facility] Work Phone: Generalized Anxiety Disorder-7 0-Not at all [facility] Work Phone: HIV 1/2 ANTIGEN/ANTIBODY SCR EEN WITH REFLEX TO CONFIRMATIONon 03-29-2022 HIV 1+2 Ab Qn (S) Non-Reactive See Below [facility] Work Phone: Comment on above: SOURCE: Reference Ra nge: NONREACTIVE HIV Ag/Ab screen is performed using the Siemens Pulsar HIV Ag/Ab Combo assay which detects the presence of HIV p24 antigen as well as antibodies to HIV-1 (Group M and O) and HIV-2..No laboratory evidence of HIV infection. If acute HIV infection is suspected, consider testing for HIV RNA by PCR (viral load). Hemoglobin A1Con 03-29-2022 Glucose [Mass/Vol] 146 mg/dL [facility] Work Phone: HbA1c (Bld) [Mass fraction] 6.7 % Abnormal [facility] Work Phone: Comment on above: Diagnosis of Diabete s-Adults Non-Diabetic: < or = 5.6% Increased risk for developing diabetes: 5.7-6.4% Diagnostic of diabetes: > or = 6.5%. Monitoring of Diabetes Age (y) Therapeutic Goal (%) Adults: >18 <7.0 Pediatrics: 13-18 <7.5 7-12 <8.0 0- 6 7.5-8.5 [place] [employer]. Diabetes Care 33(S1), Sep 2009. Hepatic Function Panelon Albumin BCP dye [Mass/Vol] 4.1 g/dL 3.4 - 5.0 [facility] Work Phone: Comment on above: SOURCE: ALP [Catalytic activity/Vol] 344 U/L above high threshold 33 - 110 [facility] Work Phone: ALT With P-5'-P [Catalytic activity/Vol] 33 U/L 7 - 45 [facility] Work Phone: Comment on above: Patients treated wit h Sulfasalazine may generate falsely decreased results for ALT. AST With P-5'-P [Catalytic activity/Vol] 24 U/L 9 - 39 [facility] Work Phone: Bilirubin [Mass/Vol] 0.4 mg/dL 0.0 - 1.2 [facility] Work Phone: Bilirubin.direct [Mass/Vol] 0.1 mg/dL 0.0 - 0.3 [facility] Work Phone: Protein [Mass/Vol] 6.7 g/dL 6.4 - 8.2 [facility] Work Phone: Hepatitis B Core Antibody, T otalon 03-29-2022 Hepatitis B Core Antibody, Total Non-Reactive See Below [facility] Work Phone: Comment on above: SOURCE: [...] surface Ag IA Ql <3.1 <10 [facility] Work Phone: Comment on above: SOURCE: INTERPRETIVE CRITERIA:<10 mIU/mL....NONREACTIVE >=10 mIU/mL...REACTIVE . Biotin interference may cause falsely decreased results. Patients taking a Biotin dose of up to 5 mg/day should refrain from taking Biotin for 24 hours before sample collection. Providers may contact their local laboratory for further information. Laboratory - Drug toxicology on 03-29-2022 Amphetamines Screen Ql Negative Cutoff 20 [facility] Work Phone: Barbiturates Screen Ql Negative Cutoff 50 [facility] Work Phone: Benzodiazepines Screen Ql Negative Cutoff 50 [facility] Work Phone: Cannabinoids Screen Ql Negative Cutoff 20 [facility] Work Phone: Cocaine Screen Ql Negative Cutoff 20 [facility] Work Phone: [phone] Methadone Screen Ql Negative Cutoff 25 [facility] Work Phone: [phone] Methamphetamine Ql Negative Cutoff 20 [facility] Work Phone: [phone] Opiates Screen Ql Negative Cutoff 20 [facility] Work Phone: [phone] oxyCODONE Ql Negative Cutoff 20 [facility] Work Phone: [phone] Phencyclidine Screen Ql Negative Cutoff 10 [facility] Work Phone: [phone] Laboratory - HLA antigenson 03-29-2022 HLA-A locus Nom (Bld/Tiss) SEE COMMENT [facility] [address] Work Phone: [phone] Comment on above: HLA-A LOCUS, LOW RES OLUTION TYPE SEE SEPARATE REPORT. HLA-B locus Nom (Bld/Tiss) SEE COMMENT [facility] [address] Work Phone: [phone] Comment on above: HLA-B LOCUS, LOW RES OLUTION TYPE SEE SEPARATE REPORT. HLA-C locus Nom (Bld/Tiss) SEE COMMENT [facility] [address] Work Phone: [phone] Comment on above: HLA-C LOCUS, LOW RES OLUTION TYPE SEE SEPARATE REPORT.Test performed at [facility]ibility [facility] Immunogenetics Laboratory [facility], 6th Floor [address] [id number] HLA-DP2 Ql (Bld/Tiss) SEE COMMENT [facility] [address] Work Phone: [phone] Comment on above: HLA-DPB1 HIGH RESOLU TION TYPING SEE SEPARATE REPORT.Test performed at [facility] Laboratory [facility], 6th Floor [address] [place] [address] HLA-DQB1 High resolution Nom (Bld/Tiss) SEE COMMENT -[facility] [address] Work Phone: [phone] Comment on above: HLA-DQB1 HIGH RESOLU TION TYPING SEE SEPARATE REPORT.Test performed at [facility] [address] [id number] HLA-DR+DQ Nom (Bld/Tiss) SEE COMMENT [facility] [place] [address] Work Phone: [phone] Comment on above: HLA-DRB1/3/4/5 & DQB 1 LOW RESOLUTION TYPING SEE SEPARATE REPORT.Test performed at [facility] [address] [place] [address] HLA-A locus Nom (Bld/Tiss) Canceled [facility] Work Phone: [phone] HLA-B locus Nom (Bld/Tiss) Canceled [facility] Work Phone: [phone] HLA-C locus Nom (Bld/Tiss) Canceled [facility] Work Phone: [phone] HLA-DP2 Ql (Bld/Tiss) Canceled [facility] Work Phone: [phone] HLA-DQB1 High resolution Nom (Bld/Tiss) Canceled [facility] Work Phone: [phone] HLA-DR+DQ Nom (Bld/Tiss) Canceled [facility] Work Phone: [phone] Laboratory - Hematology and Cell countson 03-29-2022 Erythrocyte distribution width (RBC) [Ratio] 11.9 % See Below [facility] Work Phone: Comment on above: Reference Range: 11. 5 - 14.5 Hematocrit (Bld) [Volume fraction] 34.7 % below low threshold See Below [facility] Work Phone: Comment on above: Reference Range: 36. 0 - 46.0 Hemoglobin (Bld) [Mass/Vol] 11.2 g/dL below low threshold See Below [facility] Work Phone: Comment on above: Reference Range: 12. 0 - 16.0 MCHC (RBC) [Mass/Vol] 32.3 g/dL See Below [facility] Work Phone: Comment on above: Reference Range: 32. 0 - 36.0 MCV (RBC) [Entitic vol] 103 fL above high threshold 80 - 100 [facility] Work Phone: Platelets (Bld) [#/Vol] 230 10*3/uL 150 - 450 [facility] Work Phone: [phone] RBC (Bld) [#/Vol] 3.37 {x10E12/L} below low threshold See Below [facility] Work Phone: Comment on above: Reference Range: 4.0 0 - 5.20 WBC (Bld) [#/Vol] 4.9 10*3/uL 4.4 - 11.3 [facility] Work Phone: Laboratory - Microbiology an d Antimicrobial susceptibilityon 03-29-2022 EBV capsid IgG IA Qn (S) Positive Abnormal NEGATIVE [facility] Work Phone: Comment on above: SOURCE: EBV capsid IgM IA Qn (S) Negative NEGATIVE [facility] Work Phone: EBV early IgM IA Qn (S) Negative NEGATIVE [facility] Work Phone: EBV nuclear IgG IA Qn (S) Positive Abnormal NEGATIVE [facility] Work Phone: Nicotine+Metabolites, Serumo n 03-29-2022 Cotinine [Mass/Vol] <2 [facility] Work Phone: Nicotine [Mass/Vol] <2 [facility] Work Phone: Comment on above: Consistent with [...] developed and its performance characteristics determined by [employer]. It has not been cleared or approved by the [place] Food and Drug Administration. This test was performed in a CLIA certified laboratory and is intended for clinical purposes.Performed By: [employer] [place] [id number] Director: Jhonathan Ortega MD, PhD Xllsr-8-Arvvgxrvadhke ne [Mass/Vol] <2 [facility] Work Phone: No Panel Informationon 03-29 SEE COMMENT [facility] [address] Work Phone: Comment on above: HLA CLASS I AB SCREE N,FLOW CYTOMETRY SEE SEPARATE REPORT.Test performed at [facility]ocompatibility and Immunogenetics Laboratory [facility], 6th Floor [id number] [place] [address] HLA CLASS II AB SCRE EN,FLOW CYTOMETRY SEE SEPARATE REPORT.Test performed at [facility]ogen[facility] Laboratory [facility], 6th Floor [address] [place] [address] SEE SEPARATE REPORT [facility]rolo [facility] [address] Work Phone: Comment on above: Test performed at [facility]ocompatibility and Immunogenetics Laboratory [facility], 6th Floor [id number] [place] [address] Annotation comment [Interpretation] Narrative See Note [facility] Work Phone: Comment on above: INTERPRETIVE INFORMA [...] developed and its performance characteristics determined by [employer]. It has not been cleared or approved by the [place] Food and Drug Administration. This test was performed in a CLIA certified laboratory and is intended for clinical purposes.Performed By: [employer] [place] [id number] Director: Jhonathan Ortega MD, PhD 0.0 {/100_WBC} 0.0-0.0 [facility] Work Phone: SEE BELOW [facility] Work Phone: Comment on above: . EBV INTERPRETATION CHART. VCA-IGG VCA-IGM NA-IGG EA-IGG. PRIMARY ACUTE +/- +/- - +/-LATE ACUTE + +/- +/- +/-RECOVERING + - - +PREVIOUS INFECTION + - +/- - PHQ-9on 03-29-2022 PHQ-9 1-Several days [facility] Work Phone: PHQ-9 3-Nearly every day [facility] Work Phone: PHQ-9 2-More than half the days [facility] Work Phone: PHQ-9 0-Not at all [facility] Work Phone: PHQ-9 Somewhat Difficult [facility] Work Phone: Phosphorus, Serumon 03-29-20 22 Phosphate [...] IA Ql (S) Non-Reactive See Below [facility] Work Phone: Comment on above: SOURCE: Reference Ra nge: NONREACTIVENo significant level of Treponema pallidum antibody detected. Repeat testing in 2 to 4 weeks may be considered if early infection or incubating syphilis infection is suspected. T-SPOT. TBon 03-29-2022 T-SPOT. TB Passed [facility] Work Phone: T-SPOT. TB 0 1 [facility] Work Phone: T-SPOT. TB Negative Cutoff 1 [facility] Work Phone: Comment [...] Urinalysison 03-29-2022 Appearance (U) Canceled [facility] Work Phone: Color (U) Canceled [facility] Work Phone: Glucose Ql (U) Canceled [facility] Work Phone: Ketones Ql (U) Canceled [facility] Work Phone: Leukocyte esterase Test strip Ql (U) Canceled [facility] Work Phone: Protein (U) [Mass/Vol] Canceled [facility] Work Phone: RBC (U) [#/Vol] Canceled [facility]p la [facility] Work Phone: Specific gravity (U) [Rel density] Canceled [facility] Work Phone: Urinalysis Canceled [facility] Work Phone: Comment on above: Test performed at [facility] Immunogenetics [facility] [address] [id number] [place] [address] Concentrations > = 2 0 mg/dL of ascorbic acid can be expected to cause strong interference in the reactions testing for glucose, nitrite and blood. It is recommended to discontinue Vitamin C administration and retest in 10 hours. Varicella Zoster IgG Antibod yon 03-29-2022 VZV IgG IA Ql (S) Positive NEGATIVE [facility] Work Phone: Comment on [...] (U) 10,000 -<50,000 CFU/ml Streptococcus anginosus Abnormal [facility] Bacteria identified Cx Nom (U) <10,000 CFU/ml Normal urogenital micaela [facility] CT FLANK WO IVCONon 12-07-19 22 [facility] UA DIP, URINE (POC)on 2021 BILIRUBIN UA (POCT) Small Abnormal Negative Artur [facility] CLARITY UA (POCT) [facility] COLOR UA (POCT) Elvia [facility] GLUCOSE UA (POCT) 100 mg/dL Abnormal Negative mg/dL [facility] HEMOGLOBIN/BLOOD UA (POCT) Large Abnormal Negative [facility] KETONE UA (POCT) Trace Negative mg/dL [facility] LEUKOCYTES UA (POCT) Small Abnormal Negative [facility] NITRITE UA (POCT) Negative Negative [facility] PH UA (POCT) 6.0 4.5 - 8.0 [facility] Protein Ql (U) >=300 Abnormal Negative mg/dL [facility] SPECIFIC GRAVITY UA (POCT) 1.020 1.005 - 1.030 [facility] UROBILINOGEN UA (POCT) 0.2 E.U./dL Normal E.U./dL [facility] CATH TIPon 07-29-2018 CATH TIP NO GROWTH AFTER 5 DAYS Normal [facility] Comment on above: Order Comment: Campu s: M Performed By: #### L [id number], [id number] ####[facility] [id number] [place] [id number]# [phone] CBCon 07-24-2018 Erythrocyte distribution width Auto Ratio (RBC) 12.9 % Normal 11-14.5 [facility] Comment on above: Order Comment: Campu s: M Performed By: #### L [id number], [id number] ####[facility] [id number] [place], [place] [address]Ri# [phone] Hematocrit Auto Volume Fraction (Bld) 29.9 % Low 35.0-47.0 [facility] Comment on above: Order Comment: Campu s: M Performed By: #### L 500.48760, L500.96129 ####[facility] [id number] [place] [id number]# [phone] Hemoglobin mass conc (Bld) 9.9 g/dL Low 11.5-15.5 [facility] Comment on above: Order Comment: Campu s: M Performed By: #### L 500.44864, [id number] ####[facility] [id number] [place] [id number]# [phone] MCHC Auto mass conc (RBC) 33.1 g/dL Normal 32.0-36.0 [facility] Comment on above: Order Comment: Campu s: M Performed By: #### L 500.48450, [id number] ####[facility] [id number] [place], [place] [address]Zf# [phone] MCV Auto Entitic volume (RBC) 92.3 fL Normal 80.0-99.0 [facility] Comment on above: Order Comment: Campu s: M Performed By: #### L 500.74902, L500.93899 ####[address] [address]Mn# [phone] Nucleated RBC/100 WBC Ratio (Bld) 0.0 % Normal Less than 1 [facility] Comment on above: Order Comment: Campu s: M Performed By: #### L 500.97765, L500.66748 ####[address] [address]Uc# [phone] Platelet mean volume Auto Entitic volume (Bld) 9.2 fL Low 9.4-12.4 [facility] Comment on above: Order Comment: Campu s: M Performed By: #### L 500.02635, L500.78122 ####[address] [address]Wx# [phone] Platelets Auto #/vol (Bld) 204 K/CU MM Normal 150-450 [facility] Comment on above: Order Comment: Campu s: M Performed By: #### L 500.25414, L500.86904 ####[address] [address]Ol# [phone] RBC Auto #/vol (Bld) 3.24 M/CU MM Low 3.90-5.30 [facility] Comment on above: Order Comment: Campu s: M Performed By: #### L 500.38119, L500.15162 ####[address] [address]Wt# [phone] WBC Auto #/vol (Bld) 6.3 K/CU MM Normal 4.5-11.0 [facility] Comment on above: Order Comment: Campu s: M Performed By: #### L 500.86513, L500.91833 ####[facility] [id number] [place] [address]Ds# [phone] FLUORO GUIDANCE PLACEMENTon 11-20-[address] CENTRAL TUNNEL NO [...] right internal jugular dialysis catheter. Dictated by [employer] Laborer: Jag Oneill and Signed by: Elfego Pineda MD---- Electronic Signature on File ----Signed By: Elfego Pineda [email or web address]: 07/25/2018 8:11 AMSigned: 07/25/2018 8:39 AM Reported By: ELFEGO PINEDA M.D. Signed By: ELFEGO PINEDA M.D. Normal [facility] GFR ESTon 07-24-2018 IF AMER 10 ML/MIN [facility] Comment on above: Order Comment: Campu s: M Performed By: #### L 500.02918, L500.32424 ####[facility] SFMSCMUTML4430 [place], [place] [address]Rg# [phone] IF non-AFR AMER 9 ML/MIN [facility] Comment on above: Order Comment: Campu s: M Performed By: #### L 500.28477, L500.65469 ####[facility] AIEWZSGWIT2624 [place], [place] [address]Pd# [phone] GLUCOSE METERon 07-24-2018 Glucose mass conc 150 mg/dL High 85-125 [facility] ORon 07-24-2018 OPERATIVE REPORT Normal [facility] OR DATE OF SERVICE: 07/24/2018PREOPERATIVE DIAGNOSES:1. [...] x 4 cm cutting balloon.COMPLICATIONS: None.SURGEON: Héctor Herrera [facility]ITAL[facility]STHESIA: IV sedation monitored care.FINDINGS: Severe multisegmental [...] heparinized the patient, exchanged out for a 4-Spanish sheath over aGlidewire and managed to go up and over the anastomosis down the fistula. We thenexchanged out for an 0.014 wire across the anastomosis. We then angioplastied with a3 x 10 balloon in the radial artery with significant improvement, but multiplestenoses still remained; particularly resistant was just proximal to the anastomosis. [facility] PATIENT NAME: SANDY BHATTI K1320 [facility] [address] [place] MEDICAL REC #: [id number] [address] DATE:DISCHARGE DATE:OPERATIVE REPORT ATTENDING PHY: Héctor Herrera MDWe then addressed the outflow in the fistula [...] of complicating factors. We had used a 6-Spanish sheath. We pulled afterHCT normalized. The patient was getting over to Interventional Radiology to have rtaLgrn-Q-Mcii exchanged. CIPRIANO Luna/[id number]: 07/24/2018 16:29DT: 07/24/2018 21:01SSI File#: [id number] #: [id number]/Reviewed by07/25/18 1509 PREJE [facility] PATIENT NAME: SANDY BHATTI320 [facility] [address] [place] MEDICAL REC #: [id number] [address] DATE:DISCHARGE DATE:OPERATIVE REPORT ATTENDING PHY: Héctor Herrera MD [facility] [place] PL CENTRAL TUNNEL NO PORT/PU MPon 07-24-2018 [...] right internal jugular dialysis catheter. Dictated by [employer] Laborer: Jag Oneill and Signed by: Elfego Pineda MD---- Electronic Signature on File ----Signed By: Elfego Pineda [email or web address]: 07/25/2018 8:11 AMSigned: 07/25/2018 8:39 AM Reported By: ELFEGO PINEDA M.D. Signed By: ELFEGO PINEDA M.D. [facility] [place] REMOVAL PERMA CATHon 07-24- [address] CENTRAL TUNNEL [...] right internal jugular dialysis catheter. Dictated by [employer] Laborer: Jag Oneill and Signed by: Elfego Pineda MD---- Electronic Signature on File ----Signed By: Elfego Pineda [email or web address]: 07/25/2018 8:11 AMSigned: 07/25/2018 8:39 AM Reported By: ELFEGO PINEDA M.D. Signed By: ELFEGO PINEDA M.D. [facility] Albumin mass conc 3.5 g/dL Normal 3.2-5.0 [facility] Comment on above: Order Comment: Campu s: M Performed By: #### L 500.33365, L500.57103 ####[facility] IWGFACVRBM1736 [place], [place] [address]Hp# [phone] Anion gap 3 molar conc 11 mmol/L Normal 5-16 [facility] Comment on above: Order Comment: Campu s: M Performed By: #### L 500.54446, L500.38410 ####[facility] SNIWILJCBD9611 [place], [place] [address]Cx# [phone] Calcium mass conc 9.0 mg/dL Normal 8.5-10.1 [facility] Comment on above: Order Comment: Campu s: M Performed By: #### L 500.23352, L500.52103 ####[facility] EKYSOQNRKH9520 [place], [place] [address]Fh# [phone] Chloride molar conc 101 mmol/L Normal 98-107 [facility] Comment on above: Order Comment: Campu s: M Performed By: #### L 500.80743, L500.63879 ####[facility] HSMBGWMDGB6957 [place], [place] [address]Iv# [phone] CO2 molar conc 26 mmol/L Normal 21-32 [facility] Comment on above: Order Comment: Campu s: M Performed By: #### L 500.20701, L500.59763 ####[facility] NIVGTBFYDO4755 [place], [place] [address]Fz# [phone] Creatinine mass conc 5.180 mg/dL High 0.510-0.950 [facility] Comment on above: Order Comment: Campu s: M Result Comment: Bea ents receiving either N-Acetylcysteine (NAC) orMetamizole prior to venipuncture, may have falsely depressedresults. Performed By: #### L 500.77274, L500.97330 ####[facility] PJTOKFAGDU3287 [place], [place] [address]Xx# [phone] Glucose mass conc 188 mg/dL High 70-100 [facility] Comment on above: Order Comment: Campu s: M Result Comment: 70-1 00- Normal Fasting; 100-125 Impaired Fasting; greaterthan 126 on more than one result- Diabetes. ADA guidelines.Results may be falsely elevated after the administration ofSulfapyridine.Results may be falsely depressed after the administration ofSulfasalazine. Performed By: #### L 500.90561, L500.96538 ####[facility] VUJGDNCCVP5755 [place], [place] [address]Ey# [phone] Phosphate mass conc 4.2 mg/dL Normal 2.5-4.9 [facility] Comment on above: Order Comment: Campu s: M Performed By: #### L 500.62319, L500.21288 ####[facility] LUZTRPAJWD5488 [place], [place] [address]Um# [phone] Potassium molar conc 5.0 mmol/L Normal 3.5-5.1 [facility] Comment on above: Order Comment: Campu s: M Performed By: #### L 500.08836, L500.48207 ####[facility] NECKYEIGVM8798 [place], [place] [address]Xi# [phone] Sodium molar conc 138 mmol/L Normal 136-145 [facility] Comment on above: Order Comment: Campu s: M Performed By: #### L 500.91928, L500.96040 ####[facility] LFXBJVNAQC4205 [place], [place] [address]Yj# [phone] Urea nitrogen mass conc 44 mg/dL High 7-26 [facility] Comment on above: Order Comment: Campu s: M Performed By: #### L 500.62131, L500.52565 ####[facility] RPSVVCPTVU1899 [place], [place] [address]Vb# [phone] Urea nitrogen/Creatinine mass ratio 9 mg/mg Low 15-24 [facility] [place] Comment on above: Order Comment: Nenita s: M Performed By: #### L 500.21593, L500.40957 ####[facility] AJBMRLGZMS4785 [place], [place] [address]Xb# [phone] US GUIDE VASCULAR ACCESSon 1 09-23-2017 US [...] right internal jugular dialysis catheter. Dictated by [employer] Laborer: Jag Oneill and Signed by: Elfego Pineda MD---- Electronic Signature on File ----Signed By: Elfego Pineda [email or web address]: 07/25/2018 8:11 AMSigned: 07/25/2018 8:39 AM Reported By: ELFEGO PINEDA M.D. Signed By: ELFEGO PINEDA M.D. Normal [facility] 05-16-2018 Anion gap 3 molar conc 8 mmol/L Normal 5-16 [facility] Comment on above: Order Comment: Nenita munoz: M Performed By: #### L 500.77675, L500.45538 ####[facility] JWIKDDIZEB0427 [place], [place] [address]Vm# [phone] Calcium mass conc 9.5 mg/dL Normal 8.5-10.1 [facility] Comment on above: Order Comment: Campu s: M Performed By: #### L 500.80999, L500.70235 ####[facility] ARCWCKGFBK3158 [place], [place] [address]Vs# [phone] Chloride molar conc 99 mmol/L Normal 98-107 [facility] Comment on above: Order Comment: Campu s: M Performed By: #### L 500.96699, L500.23592 ####[facility] HRKUVQLEDU7149 [place], [place] [address]Qz# [phone] CO2 molar conc 28 mmol/L Normal 21-32 [facility] Comment on above: Order Comment: Campu s: M Performed By: #### L 500.81236, L500.96449 ####[facility] GHPZMRWCAM5541 [place], [place] [address]Hl# [phone] Creatinine mass conc 4.080 mg/dL High 0.510-0.950 [facility] [place] Comment on above: Order Comment: Campu s: M Result Comment: Bea ents receiving either N-Acetylcysteine (NAC) orMetamizole prior to venipuncture, may have falsely depressedresults. Performed By: #### L 500.80915, L500.63272 ####[facility] QROOTNUXGD3239 [place], [place] [address]Dm# [phone] Glucose mass conc 288 mg/dL High 70-100 [facility] Comment on above: Order Comment: Campu s: M Result Comment: 70-1 00- Normal Fasting; 100-125 Impaired Fasting; greaterthan 126 on more than one result- Diabetes. ADA guidelines.Results may be falsely elevated after the administration ofSulfapyridine.Results may be falsely depressed after the administration ofSulfasalazine. Performed By: #### L 500.37464, L500.77784 ####[facility] VGSOQKVTLH0451 [place], [place] [address]Sf# [phone] Potassium molar conc 4.2 mmol/L Normal 3.5-5.1 [facility] [place] Comment on above: Order Comment: Campu s: M Performed By: #### L 500.99781, L500.39598 ####[facility] IWK[address]XAQDI[address] [place] [address]Iu# [phone] Sodium molar conc 135 mmol/L Low 136-145 [facility] [place] Comment on above: Order Comment: Campu s: M Performed By: #### L 500.91628, L500.03655 ####[place] [address]33[address]Ph# [phone] Urea nitrogen mass conc 31 mg/dL High 7-26 [facility] [place] Comment on above: Order Comment: Campu s: M Performed By: #### L 500.18649, L500.78108 ####[place] [address]33[address]Ph# [phone] Urea nitrogen/Creatinine mass ratio 8 mg/mg Low 15-24 [facility] [place] Comment on above: Order Comment: Campu s: M Performed By: #### L 500.35596, L500.97605 ####[place] [address]33[address]Ph# [phone] CBC W/DIFFon 05-16-2018 BASO ABS 0.10 K/CU MM Normal 0-0.2 [facility] [place] Comment on above: Order Comment: Campu s: M Performed By: #### L 500.28385, L500.34029 ####[facility] [id number] [place], [place] [address]Ph# [phone] Basophils/100 WBC Auto (Bld) 1.0 % Normal 0-2 [facility] [place] Comment on above: Order Comment: Campu s: M Performed By: #### L 500.87861, L500.90403 ####[facility] [id number] [place], [place] [address]Ph# [phone] EOS ABS 0.20 K/CU MM Normal 0-0.5 [facility] [place] Comment on above: Order Comment: Campu s: M Performed By: #### L 500.02375, L500.41713 ####[facility] YEXAXXWVRK8981 [place], [place] [address]Yn# [phone] Eosinophils/100 WBC Auto (Bld) 2.5 % Normal 0-5 [facility] [place] Comment on above: Order Comment: Campu s: M Performed By: #### L 500.62851, L500.59273 ####[place] [address]33[address]Ph# [phone] Erythrocyte distribution width Auto Ratio (RBC) 13.7 % Normal 11-14.5 [facility] [place] Comment on above: Order Comment: Campu s: M Performed By: #### L 500.48727, L500.36727 ####[place] [address]33[address]Ph# [phone] Hematocrit Auto Volume Fraction (Bld) 30.8 % Low 35.0-47.0 [facility] [place] Comment on above: Order Comment: Campu s: M Performed By: #### L 500.82416, L500.71073 ####[address] [address]Ik# [phone] Hemoglobin mass conc (Bld) 10.2 g/dL Low 11.5-15.5 [facility] [place] Comment on above: Order Comment: Campu s: M Performed By: #### L 500.38158, L500.39787 ####[place] [address]Ph# [phone] IMMATR GRAN ABS 0.00 K/CU MM Normal Less than 2 [facility] [place] Comment on above: Order Comment: Campu s: M Performed By: #### L 500.39253, L500.89515 ####[address] [address]Pl# [phone] IMMATURE GRAN % 0.4 % Normal Less than 2 [facility] [place] Comment on above: Order Comment: Campu s: M Performed By: #### L 500.22635, L500.44012 ####[facility] ST[address]ZC[address] [place] [address]Cw# [phone] Lymphocytes Auto #/vol (Bld) 1.60 K/CU MM Normal 0.9-4.4 [facility] Comment on above: Order Comment: Campu s: M Performed By: #### L 500.36424, L500.62198 ####[place] [address]33[address]Ph# [phone] Lymphocytes/100 WBC Auto (Bld) 23.4 % Normal 20-40 [facility] Comment on above: Order Comment: Campu s: M Performed By: #### L 500.68304, L500.10663 ####[place] [address]33[address]Ph# [phone] MCHC Auto mass conc (RBC) 33.1 g/dL Normal 32.0-36.0 [facility] [place] Comment on above: Order Comment: Campu s: M Performed By: #### L 500.18669, L500.98451 ####[place] [address]Ph# [phone] MCV Auto Entitic volume (RBC) 89.8 fL Normal 80.0-99.0 [facility] Comment on above: Order Comment: Campu s: M Performed By: #### L 500.28508, L500.14684 ####[place] [address]33[address]Ph# [phone] MONO ABS 0.60 K/CU MM Normal 0.1-1.1 [facility] [place] Comment on above: Order Comment: Campu s: M Performed By: #### L 500.61431, L500.88121 ####[place] [address]33[address]Ph# [phone] Monocytes/100 WBC Auto (Bld) 8.8 % Normal 2-10 [facility] Comment on above: Order Comment: Campu s: M Performed By: #### L 500.49847, L500.15960 ####[facility] NHLOESXUWA4126 [place], [place] [address]Tj# [phone] NEUTROPHIL ABS 4.30 K/CU MM Normal 2.0-8.3 [facility] Comment on above: Order Comment: Campu s: M Performed By: #### L 500.52173, L500.47573 ####[address] [address]Xe# [phone] Neutrophils/100 WBC Auto (Bld) 63.9 % Normal 45-75 [facility] Comment on above: Order Comment: Campu s: M Performed By: #### L 500.48534, L500.90145 ####[address] [address]Bj# [phone] Nucleated RBC/100 WBC Ratio (Bld) 0.3 % Normal Less than 1 [facility] Comment on above: Order Comment: Campu s: M Performed By: #### L 500.13220, L500.58636 ####[facility] DXOFYSTFQT[address] [place] [address]Zo# [phone] Platelet mean volume Auto Entitic volume (Bld) 9.3 fL Low 9.4-12.4 [facility] Comment on above: Order Comment: Campu s: M Performed By: #### L 500.59172, L500.01881 ####[facility] WOYYNYNRUM[address] [place], [place] [address]Ph# [phone] Platelets Auto #/vol (Bld) 184 K/CU MM Normal 150-450 [facility] Comment on above: Order Comment: Campu s: M Performed By: #### L 500.68687, L500.65466 ####[facility] RUTNXFINAD[address] [place] [address]Ri# [phone] RBC Auto #/vol (Bld) 3.43 M/CU MM Low 3.90-5.30 [facility] [place] Comment on above: Order Comment: Campu s: M Performed By: #### L 500.00120, L500.19463 ####[facility] RXQQJPPGRE3863 [place], [place] [address]Nq# [phone] WBC Auto #/vol (Bld) 6.7 K/CU MM Normal 4.5-11.0 [facility] [place] Comment on above: Order Comment: Campu s: M Performed By: #### L 500.54300, L500.43141 ####[facility] [address]QKMJEKT[address] [place], [place] [address]Ph# [phone] GFR ESTon 05-16-2018 IF AMER 14 ML/MIN Normal [facility] Comment on above: Order Comment: Campu s: M Performed By: #### L 500.82839, L500.42580 ####[address] [address]Pp# [phone] IF non-AFR AMER 11 ML/MIN Normal [facility] Comment on above: Order Comment: Campu s: M Performed By: #### L 500.43189, L500.75924 ####[facility] E[address]LEWECRW[address] [place] [address]Ra# [phone] BMPon 05-15-2018 Anion gap 3 molar conc 8 mmol/L Normal 5-16 [facility] [place] Comment on above: Order Comment: Campu s: M Performed By: #### L 500.79761, L500.72149 ####[facility] EYUEXQPZWJ[address] [place] [address]Fz# [phone] Calcium mass conc 8.8 mg/dL Normal 8.5-10.1 [facility] [place] Comment on above: Order Comment: Campu s: M Performed By: #### L 500.94480, L500.79468 ####[facility] OIVMATLWDJ8393 [place], [place] [address]Ji# [phone] Chloride molar conc 99 mmol/L Normal 98-107 [facility] Comment on above: Order Comment: Campu s: M Performed By: #### L 500.73461, L500.98747 ####[facility] PKCHDOCSJO1030 [place], [place] [address]Le# [phone] CO2 molar conc 29 mmol/L Normal 21-32 [facility] Comment on above: Order Comment: Campu s: M Performed By: #### L 500.16870, L500.66590 ####[facility] WGTONHMQOM3802 [place], [place] [address]Ic# [phone] Creatinine mass conc 3.970 mg/dL High 0.510-0.950 [facility] [place] Comment on above: Order Comment: Campu s: M Result Comment: Bea ents receiving either N-Acetylcysteine (NAC) orMetamizole prior to venipuncture, may have falsely depressedresults. Performed By: #### L 500.46111, L5.37769 ####[facility] RNUPJWNIXN8281 [place] [address]Ph# [phone] Glucose mass conc 244 mg/dL High 70-100 [facility] Comment on above: Order Comment: Campu s: M Result Comment: 70-1 00- Normal Fasting; 100-125 Impaired Fasting; greaterthan 126 on more than one result- Diabetes. ADA guidelines.Results may be falsely elevated after the administration ofSulfapyridine.Results may be falsely depressed after the administration ofSulfasalazine. Performed By: #### L 500.27137, L5.53246 ####[facility] QUDEPZANHS2419 [place], [place] [address]Il# [phone] Potassium molar conc 4.0 mmol/L Normal 3.5-5.1 [facility] Comment on above: Order Comment: Campu s: M Performed By: #### L 500.31450, L500.42355 ####[facility] VHVVKTFHZH0453 [place], [place] [address]Vw# [phone] Sodium molar conc 137 mmol/L Normal 136-145 [facility] Comment on above: Order Comment: Campu s: M Performed By: #### L 500.71491, L500.11132 ####[facility] QYLRCZEACL[address] [place] [address]Vi# [phone] Urea nitrogen mass conc 34 mg/dL High 7-26 [facility] [place] Comment on above: Order Comment: Campu s: M Performed By: #### L 500.13014, L500.94890 ####[address] [address]Er# [phone] Urea nitrogen/Creatinine mass ratio 9 mg/mg Low 15-24 [facility] [place] Comment on above: Order Comment: Campu s: M Performed By: #### L 500.15627, L500.38084 ####[place] [address]Ph# [phone] CBC W/DIFFon 05-15-2018 BASO ABS 0.00 K/CU MM Normal 0-0.2 [facility] [place] Comment on above: Order Comment: Campu s: M Performed By: #### L 500.08063, L500.01515 ####[facility] IRRWZHJMOJ[address] [place] [address]Hc# [phone] Basophils/100 WBC Auto (Bld) 0.7 % Normal 0-2 [facility] [place] Comment on above: Order Comment: Campu s: M Performed By: #### L 500.15382, L500.08218 ####[address] [address]Qq# [phone] EOS ABS 0.10 K/CU MM Normal 0-0.5 [facility] [place] Comment on above: Order Comment: Campu s: M Performed By: #### L 500.07487, L500.49170 ####[facility] TCITSOUAGR[address] [place] [address]Vq# [phone] Eosinophils/100 WBC Auto (Bld) 2.4 % Normal 0-5 [facility] [place] Comment on above: Order Comment: Campu s: M Performed By: #### L 500.38943, L500.54698 ####[address] [address]Zq# [phone] Erythrocyte distribution width Auto Ratio (RBC) 12.8 % Normal 11-14.5 [facility] [place] Comment on above: Order Comment: Campu s: M Performed By: #### L 500.85604, L500.29178 ####[address] [address]Sf# [phone] Hematocrit Auto Volume Fraction (Bld) 24.4 % Low 35.0-47.0 [facility] [place] Comment on above: Order Comment: Campu s: M Performed By: #### L 500.14121, L500.86127 ####[place] [address]Ph# [phone] Hemoglobin mass conc (Bld) 8.1 g/dL Low 11.5-15.5 [facility] [place] Comment on above: Order Comment: Campu s: M Performed By: #### L 500.59424, L500.74004 ####[place] [address]33[address]Ph# [phone] IMMATR GRAN ABS 0.00 K/CU MM Normal Less than 2 [facility] [place] Comment on above: Order Comment: Campu s: M Performed By: #### L 500.49218, L500.11499 ####[place] [address]33[address]Ph# [phone] IMMATURE GRAN % 0.4 % Normal Less than 2 [facility] [place] Comment on above: Order Comment: Campu s: M Performed By: #### L 500.23578, L500.28307 ####[place] [address]33[address]Ph# [phone] Lymphocytes Auto #/vol (Bld) 1.60 K/CU MM Normal 0.9-4.4 [facility] [place] Comment on above: Order Comment: Campu s: M Performed By: #### L 500.18525, L500.53603 ####[address], [place] [address]Nr# [phone] Lymphocytes/100 WBC Auto (Bld) 29.7 % Normal 20-40 [facility] [place] Comment on above: Order Comment: Campu s: M Performed By: #### L 500.25016, L500.31946 ####[place] [address]Ph# [phone] MCHC Auto mass conc (RBC) 33.2 g/dL Normal 32.0-36.0 [facility] [place] Comment on above: Order Comment: Campu s: M Performed By: #### L 500.09106, L500.30149 ####[place] [address]Ph# [phone] MCV Auto Entitic volume (RBC) 89.7 fL Normal 80.0-99.0 [facility] Comment on above: Order Comment: Campu s: M Performed By: #### L 500.50525, L500.39317 ####[place] [id number]# [phone] MONO ABS 0.50 K/CU MM Normal 0.1-1.1 [facility] Comment on above: Order Comment: Campu s: M Performed By: #### L 500.91072, L500.45411 ####[place] [id number]# [phone] Monocytes/100 WBC Auto (Bld) 9.9 % Normal 2-10 [facility] Comment on above: Order Comment: Campu s: M Performed By: #### L 500.60146, L500.58109 ####[place] [id number]# [phone] NEUTROPHIL ABS 3.10 K/CU MM [facility] 2.0-8.3 [facility]: Order Comment: Campu s: M Performed By: #### L 500.02091, L500.15738 ####[address] [place], [place] [address]Ji# [phone] Neutrophils/100 WBC Auto (Bld) 56.9 % Normal 45-75 [facility] Comment on above: Order Comment: Campu s: M Performed By: #### L 500.95033, L500.63409 ####[address] [address]Rw# [phone] Nucleated RBC/100 WBC Ratio (Bld) 0.0 % Normal Less than 1 [facility] Comment on above: Order Comment: Campu s: M Performed By: #### L 500.04643, L500.98679 ####[place] [address]Ph# [phone] Platelet mean volume Auto Entitic volume (Bld) 9.1 fL Low 9.4-12.4 [facility] Comment on above: Order Comment: Campu s: M Performed By: #### L 500.93733, L500.23284 ####[address] [address]Xq# [phone] Platelets Auto #/vol (Bld) 163 K/CU MM Normal 150-450 [facility] Comment on above: Order Comment: Campu s: M Performed By: #### L 500.73052, L500.83736 ####[place] [address]Ph# [phone] RBC Auto #/vol (Bld) 2.72 M/CU MM Low 3.90-5.30 [facility] Comment on above: Order Comment: Campu s: M Performed By: #### L 500.24345, L500.06743 ####[address] [address]Qz# [phone] WBC Auto #/vol (Bld) 5.5 K/CU MM Normal 4.5-11.0 [facility] Comment on above: Order Comment: Campu s: M Performed By: #### L 500.40619, L500.09870 ####[facility] [id number] [place], [place] [address]Kf# [phone] GFR ESTon 05-15-2018 IF AMER 14 ML/MIN Normal [facility] Comment on above: Order Comment: Campu s: M Performed By: #### L 500.24418, L500.94275 ####[facility] [id number] [place], [place] [address]Ph# [phone] IF non-AFR AMER 12 ML/MIN Normal [facility] Comment on above: Order Comment: Campu s: M Performed By: #### L 500.93305, L500.87319 ####[facility] HPEBNLGJXH4933 [place], [place] [address]Sl# [phone] GLUCOSE METERon 05-15-2018 Glucose mass conc 132 mg/dL High 85-125 [facility] Glucose mass conc 323 mg/dL High 85-125 [facility] Glucose mass conc 241 mg/dL High 85-125 [facility] PROG.NEPHon 05-15-2018 Protein mass conc [facility] Patient Name: SANDY BHATTI [id number] [facility] Date of : [address] [address] Unit Number: [id number] Number: [id number] Note-Nephrology Patient Status: ADM INoAttending Doctor: Anderson Rubio MDService Date: 05/15/18 1317Progress Note-Nephrology([facility])Subj ectiveSubjective:pt feels goodonly ambulating in the roomno more chest painObjectiveVital Signs:Vital Signs (Last)ResultDate TimePulse Mx3212/11 1000B/P130/5709/11 9515Qtvg51.209/11 6605Dsqem9586/11 5294Yleh9440/11 1000O2 DeliveryROOM AIR05/14 1640IandO 24 Hour Idrfkok93/11 0000Intake Ilzxp884Uudifj Wmfof9448Psltlph-2534Pdxqb e, Wgcg230Fitvir9JeafshutdmNs idsOutput, Dxjni9333Xupwfv, Crcdl5Ezzeiz, Mrill957Mglbbks692 lbWeightExam:AGHx3Mp pallor/IcterusNo JVD appreciated.Chest equal in expansion. No rales/rhonchi appreciated.S1S2 heard. No murmur/rub appreciated.Abd soft. Non-distended. Non-tender. Bowel sounds heard.Bilateral lower extremities: No edema/cyanosis.Central Access:Medications:Medicat ions CurrentSig/SchStart timeLastMedicationDoseRout eStop TimeStatusAdminAcetaminoph en650 ACJ3IKHJ PRN09/10 0900AC(TYLENOL TAB)POAmlodipine Zselycaz49 OWWGWG47/08 8988LI14/11(NORVASC TAB)NQ8984Ltrpydm30 FMFLXVAX78/10 7702EZ62/11(ECOTRIN TAB.EC)QS2862Wdlzspveypeb Ameislf25 MGQHS09/10 5834CM03/10(LIPITOR TAB)KT7796Grxmegs Acetate1,334 CQKFBHX28/07 0448HA05/11(PHOSLO TAB)TI4887Rvngfxpch HCl0.3 MGBID09/07 2187IB95/11(CATAPRES TAB)XK7143Cfycggb Alfa20,000 UNITONCALL PRN09/08 0900AC(Procrit/Epogen Vial)IVHeparin Sodium5,000 OHKICSV83/07 8907WF76/11(Porcine)RH5933 (HEPARIN D.SYR)Hydrocodone Bitart/1 LOGKR7TSCR PRN09/07 8346AJ30/07AcetaminophenPO 1901(NORCO 5-325 TAB)Insulin Human LisproSee CefqAGPY24/07 4623PU01/11(humaLOG/novoLO G PEN)Insts (1)MV6466Sinrduxxpt44 XRTDDK88/10 7936SH87/78VhvcnrpbzaoDX48 17(IMDUR TAB.SA)Levothyroxine Sodium0.112 ZRXTSUAZ40/08 5465CP52/11(SYNTHROID TAB)YA9992Czxhzbfqu5 MGQHSPRN PRN09/10 2476QW21/10(MELATONIN TAB)KT5753Bfjfmrawym Tartrate5 SHK3ETCC PRN09/08 9224JF84/08(LOPRESSOR AMP)UQ8683Dkzwowphre Nopkpqdh89 MGBID05/11 1938IN72/(LOPRESSOR TAB)YD6276Vyomrelabaver2.4 KKZ6WNQS PRN05/11 1400AC(NITROSTAT 0.4MGSLTAB.SL)Sodium Chloride1,000 EMZURT51/10 0900AC(Sodium ChlorideIV0.9%)Vitamin B Complex/1 XZNFPWJ89/08 2359JY53/11Folic VnutIL4670(NEPHROCAPS/NEPH ROVITE CAP)Dose Instructions:(1)Insulin Human Lispro (humaLOG/novoLOG PEN):1-5 UnitsLab Results:Lab 24hr (CBC/BMP [facility])05/15/18 1104:Whole Bld Glucose 323 H005/15/18 0735:Whole Bld [...] Eosinophils # 0.10, Basophils # 0.00,Nucleated RBCs 0.009 2152:Whole Bld Glucose 292 H005/14/18 1620:Whole Bld Glucose 206 HAssessment/PlanAssessment /Problem List:1. Chest painheart cath yesterday2. ESRD (end stage renal disease)mwvin garcia to have avf manipulation tomorrow - she doesn't know what timeto have perm cath replacement will dialyze today for volume and to get blood and in case she cannot make her dialysistomorrow,.3. Anemiato be transfused today w dialysisepo yest w dialysis4. Hypertensionbp well controlled5. HyperkalemiaDisclaimerThis dictation was created using voice recognition software.Phonetic and/or minor grammatical errors may exist.eSign Date and Arthur Murrieta MD Verified/Reviewed by 05/15/18 1320 Normal [facility] Protein mass conc Normal [facility] RBC NO Grupo 05-15-2018 RBC Auto #/vol (Bld) 1 10*6/uL [facility] 05-15-2018 ABO and Rh group Nom (Bld) A POSITIVE Normal [facility] Comment on above: Order Comment: Calebu s: M BMPon 05-14-2018 Anion gap 3 molar conc 12 mmol/L Normal 5-16 [facility] Comment on above: Order Comment: Campu s: M Performed By: #### L 500.35433, L500.07995 ####[facility] [id number] [place], [place] [address]Wc# [phone] Calcium mass conc 9.4 mg/dL Normal 8.5-10.1 [facility] Comment on above: Order Comment: Campu s: M Performed By: #### L 500.34482, L500.71297 ####[facility] [id number] [place], [place] [address]Ht# [phone] Chloride molar conc 103 mmol/L Normal 98-107 [facility] Comment on above: Order Comment: Campu s: M Performed By: #### L 500.07110, L500.99078 ####[facility] [id number] [place], [place] [address]Dz# [phone] CO2 molar conc 23 mmol/L Normal 21-32 [facility] Comment on above: Order Comment: Campu s: M Performed By: #### L 500.65661, L500.84974 ####[facility] [id number] [place], [place] [address]Sh# [phone] Creatinine mass conc 5.950 mg/dL High 0.510-0.950 [facility] Comment on above: Order Comment: Campu s: M Result Comment: Bea ents receiving either N-Acetylcysteine (NAC) orMetamizole prior to venipuncture, may have falsely depressedresults. Performed By: #### L 500.86062, L500.11255 ####[facility] [id number] [place], [place] [address]Me# [phone] Glucose mass conc 234 mg/dL High 70-100 [facility] Comment on above: Order Comment: Campu s: M Result Comment: 70-1 00- Normal Fasting; 100-125 Impaired Fasting; greaterthan 126 on more than one result- Diabetes. ADA guidelines.Results may be falsely elevated after the administration ofSulfapyridine.Results may be falsely depressed after the administration ofSulfasalazine. 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 ANDIF WANTED REDRAW THEY WOULD PUT NEW ORDER INSCA Performed By: #### L 500.07584, L500.17341 ####[facility] [id number] [place], [place] [address]Bz# [phone] Sodium molar conc 138 mmol/L Normal 136-145 [facility] Comment on above: Order Comment: Campu s: M Performed By: #### L 500.91330, L500.40198 ####[facility] TJOJXMYPLE9829 [place], [place] [address]Oj# [phone] Urea nitrogen mass conc 56 mg/dL High 7-26 [facility] Comment on above: Order Comment: Campu s: M Performed By: #### L 500.72039, L500.46010 ####[facility] [id number] [place], [place] [address]Ss# [phone] Urea nitrogen/Creatinine mass ratio 9 mg/mg Low 15-24 [facility] Comment on above: Order Comment: Campu s: M Performed By: #### L 500.23060, L500.29611 ####[address] [address]Tz# [phone] CBC W/DIFFon 05-14-2018 BASO ABS 0.10 K/CU MM Normal 0-0.2 [facility] Comment on above: Order Comment: Campu s: M Performed By: #### L 500.67870, L500.91814 ####[address] [address]Hj# [phone] Basophils/100 WBC Auto (Bld) 1.3 % Normal 0-2 [facility] Comment on above: Order Comment: Campu s: M Performed By: #### L 500.93941, L500.42465 ####[address] [address]Qt# [phone] EOS ABS 0.20 K/CU MM Normal 0-0.5 [facility] Comment on above: Order Comment: Campu s: M Performed By: #### L 500.89692, L500.24099 ####[address] [address]Kc# [phone] Eosinophils/100 WBC Auto (Bld) 2.8 % Normal 0-5 [facility] Comment on above: Order Comment: Campu s: M Performed By: #### L 500.81629, L500.17177 ####[address] [address]Qz# [phone] Erythrocyte distribution width Auto Ratio (RBC) 12.7 % Normal 11-14.5 [facility] Comment on above: Order Comment: Campu s: M Performed By: #### L 500.40783, L500.46743 ####[address] [address]Wl# [phone] Hematocrit Auto Volume Fraction (Bld) 27.4 % Low 35.0-47.0 [facility] Comment on above: Order Comment: Campu s: M Performed By: #### L 500.36110, L500.81659 ####[place] [address]Ph# [phone] Hemoglobin mass conc (Bld) 9.1 g/dL Low 11.5-15.5 [facility] Comment on above: Order Comment: Campu s: M Performed By: #### L 500.14714, L500.47522 ####[place] [address]Ph# [phone] IMMATR GRAN ABS 0.20 K/CU MM Normal Less than 2 [facility] Comment on above: Order Comment: Campu s: M Performed By: #### L 500.49686, L500.13491 ####[place] [address]Ph# [phone] IMMATURE GRAN % 2.5 % Normal Less than 2 [facility] Comment on above: Order Comment: Campu s: M Performed By: #### L 500.90953, L500.13464 ####[place] [address]Ph# [phone] Lymphocytes Auto #/vol (Bld) 2.50 K/CU MM Normal 0.9-4.4 [facility] Comment on above: Order Comment: Campu s: M Performed By: #### L 500.74231, L500.07998 ####[facility] [id number] [place] [address]Pk# [phone] Lymphocytes/100 WBC Auto (Bld) 35.8 % Normal 20-40 [facility] Comment on above: Order Comment: Campu s: M Performed By: #### L 500.34012, L500.55336 ####[address] [address]Zq# [phone] MCHC Auto mass conc (RBC) 33.2 g/dL Normal 32.0-36.0 [facility] Comment on above: Order Comment: Campu s: M Performed By: #### L 500.06066, L500.45228 ####[facility] [id number] [place], [place] [address]Ph# [phone] MCV Auto Entitic volume (RBC) 88.7 fL Normal 80.0-99.0 [facility] Comment on above: Order Comment: Campu s: M Performed By: #### L 500.99983, L500.48452 ####[place] [address]Ph# [phone] MONO ABS 0.50 K/CU MM Normal 0.1-1.1 [facility] Comment on above: Order Comment: Campu s: M Performed By: #### L 500.75702, L500.14802 ####[place] [address]Ph# [phone] Monocytes/100 WBC Auto (Bld) 7.2 % Normal 2-10 [facility] Comment on above: Order Comment: Campu s: M Performed By: #### L 500.32203, L500.30895 ####[address] [address]Kc# [phone] NEUTROPHIL ABS 3.60 K/CU MM Normal 2.0-8.3 [facility] Comment on above: Order Comment: Campu s: M Performed By: #### L 500.91275, L500.97731 ####[facility] [id number] [place] [address]Gp# [phone] Neutrophils/100 WBC Auto (Bld) 50.4 % Normal 45-75 [facility] Comment on above: Order Comment: Campu s: M Performed By: #### L 500.92173, L500.35705 ####[facility] [id number] [place] [address]Gn# [phone] Nucleated RBC/100 WBC Ratio (Bld) 0.3 % Normal Less than 1 [facility] Comment on above: Order Comment: Campu s: M Performed By: #### L 500.40322, L500.01058 ####[address] [address]Yx# [phone] Platelet mean volume Auto Entitic volume (Bld) 9.4 fL Normal 9.4-12.4 [facility] Comment on above: Order Comment: Campu s: M Performed By: #### L 500.67759, L500.55533 ####[address] [address]Po# [phone] Platelets Auto #/vol (Bld) 188 K/CU MM Normal 150-450 [facility] Comment on above: Order Comment: Campu s: M Performed By: #### L 500.52568, L500.91311 ####[address] [address]Vc# [phone] RBC Auto #/vol (Bld) 3.09 M/CU MM Low 3.90-5.30 [facility] Comment on above: Order Comment: Campu s: M Performed By: #### L 500.04668, L500.43302 ####[address] [address]Il# [phone] WBC Auto #/vol (Bld) 7.1 K/CU MM Normal 4.5-11.0 [facility] Comment on above: Order Comment: Campu s: M Performed By: #### L 500.07992, L500.43013 ####[facility] [id number] [place] [address]Ye# [phone] GFR ESTon 05-14-2018 IF AMER 9 ML/MIN Normal [facility] Comment on above: Order Comment: Campu s: M Performed By: #### L 500.42646, L500.98123 ####[facility] [id number] [place] [address]Ay# [phone] IF non-AFR AMER 7 ML/MIN Normal [facility] Comment on above: Order Comment: Calebu s: M Performed By: #### L 500.17044, L500.70844 ####[facility] [id number] [place], [place] [address]Jd# [phone] GLUCOSE METERon 05-14-2018 Glucose mass conc 292 mg/dL High 85-125 [facility] Glucose mass conc 206 mg/dL High 85-125 [facility] Glucose mass conc 158 mg/dL High 85-125 [facility] Glucose mass conc 284 mg/dL High 85-125 [facility] Migel 05-14-2018 Potassium molar conc 5.6 mmol/L High 3.5-5.1 [facility] Comment on above: Order Comment: Calebu s: M Performed By: #### L 500.27999, L500.49744 ####[facility] [id number] [place], [place] [address]Ty# [phone] PROG IMSon 05-14-2018 Protein mass conc [facility] Patient Name: SANDY BHATTI [id number] [facility] Date of : [address], [place] [address] Unit Number: [id number] Number: [id number] Note-Hospitalist Patient Status: ADM INoAttending Doctor: Anderson Rubio MDService Date: 05/14/18 1400Chief ComplaintChief ComplaintChest painSubjectiveS: (2 ROS minimum)Patient seen in hemodialysis. Feeling lightheaded. Blood pressure recorded 80s over 60s.Patient is being given fluid bolus. Blood pressure improved to 150s now. Patient deniesshortness of breath no chest pain.Objective (ROS)Nursing VitalsVital Signs (Last)ResultDate TimePulse Ry6775/10 0756B/P142/6209/10 0069Jtup30.609/10 5483Vrrmg3787/10 6098Rtek2277/10 0756O2 DeliveryROOM AIR/07 1814On examinationHEENT pupils are equal and reactive to light and accommodation. No pallor. No icterusNeck is suppleCardiovascular system S1-S2 normal. Systolic murmur heardChest clear bilateralAbdomen soft . Nontender. Bowel sounds present. Right groin dressing is seenExtremities trace edema bilateral lower extremitiesPatient is alert awake oriented to time place personNo distressDiagnostic Data:Lab 24hr (CBC/BMP Carmela)05/14/18 1240:Whole Bld Glucose 158 H005/14/18 0706:Whole Bld [...] Glucose 228 H09 1635:Whole Bld Glucose 254 HAssessment and PlanConclusion1. [...] TimeAnderson Rubio MD Verified/Reviewed by 05/14/18 1403 [facility] Protein mass [facility] PROG.NEPHon 05-14-2018 Protein mass [facility] Patient Name: SANDY BHATTI32Jonathan [employer] Date of : [address] [address] Unit Number: [id number] Number: [id number] Note-Nephrology Patient Status: ADM INoAttending Doctor: Anderson Rubio MDService Date: 05/14/18 0721Progress Note-Nephrology([facility])Subj ectiveSubjective:no more chest pain through the nightbreathing comfortably lying flatObjectiveVital Signs:Vital Signs (Last)ResultDate TimePulse Ko6382/10 0644B/P142/6209/10 7815Egfq81.609/10 9932Qsgal1304/10 5192Imnm8841/10 0644O2 DeliveryROOM AIR09/07 1814IandO 24 Hour Hbqtesh01/10 0000Intake Iayea0760Ksnsfl Erpbm714Dtmmvll686Ymzyvs, Qilk4142Kvuytz3PucgmrzgwuH oidsOutput, Gvnzy9Wccloy, Cyaii118Olgtnhj504 lbWeightExam:GTCa9Lh pallor/IcterusNo JVD appreciated.Chest equal in expansion. No rales/rhonchi appreciated.S1S2 heard. No murmur/rub appreciated.Abd soft. Non-distended. Non-tender. Bowel sounds heard.Bilateral lower extremities: No edema/cyanosis.Central Access:Medications:Medicat ions CurrentSig/SchStart timeLastMedicationDoseRout eStop TimeStatusAdminAmlodipine Niehawnm88 TIZJQX19/08 5969JH71/09(NORVASC TAB)UJ1252Qlpfdxc972 WRJQJFHJ51/08 0154LP39/09(ECOTRIN TAB.EC)IN9916Bahetnfpsvhn Kcmtmdh57 MGQHS09/07 2600XR96/09(LIPITOR TAB)TG5253Qannudb Acetate1,334 JYAYBKC77/07 1767LS69/09(PHOSLO TAB)XU7760Cvsbitzdo HCl0.3 MGBID09/07 1056GB34/09(CATAPRES TAB)FK7924Ehqwnvn Alfa20,000 UNITONCALL PRN09/08 0900AC(Procrit/Epogen Vial)IVHeparin Sodium5,000 WOMMRJB21/ 6268CB84/09(Porcine)QX3726 (HEPARIN D.SYR)Hydrocodone Bitart/1 GQJGV1XWQU PRN09/07 6477BF27/07AcetaminophenPO 1901(NORCO 5-325 TAB)Insulin Human LisproSee FszuIXTO61/07 2236ON03/09(humaLOG/novoLO G PEN)Insts (1)NX8189Yiyacngefmzlo Sodium0.112 WCNQBGQO31/08 4302RV67/10(SYNTHROID TAB)IF8037Ljgcwirnp6 MGQHSPRN PRN09/10 9379BO32/10(MELATONIN TAB)GL7623Onaxizspyi Tartrate5 FZD8GSJZ PRN09/08 1982FG54/08(LOPRESSOR AMP)ZZ6669Tylqdlcezp Gsenkyrf72 MGBID09/07 6742BI06/09(LOPRESSOR TAB)JZ9730Pmhxwkldnfrdl6 YQVQL3O92/08 7864DD92/10(NITRO-BID T.OINT)IW2672Kzisatgvnhxwt 0.4 BKB6OKZR PRN09/07 1400AC(NITROSTAT 0.4MGSLTAB.SL)Vitamin B Complex/1 CUPKLFP34/08 6979GP83/09Folic FoozML7981(NEPHROCAPS/NEPH ROVITE CAP)Dose Instructions:(1)Insulin Human Lispro (humaLOG/novoLOG PEN):1-5 UnitsLab Results:Lab 24hr (CBC/BMP Fishbone)05/14/18 0638:[Embedded Image Not Available]05/14/18 0453:[Embedded Image Not [...] 0.10,Nucleated RBCs 0.309 2125:Whole Bld Glucose 228 H005/13/18 1635:Whole Bld Glucose 254 H09 1134:Whole Bld Glucose 263 H005/13/18 0743:Whole Bld Glucose 169 HAssessment/PlanAssessment /Problem List:1. Chest painfor heart cath today2. ESRD (end stage renal disease)dialysis today3. Anemiaepo w dialysis4. Hypertensionbp controlled5. Hyperkalemiawill dose some kayexalatecorrect w dialysismay not want to cath w high kDisclaimerThis dictation was created using voice recognition software.Phonetic and/or minor grammatical errors may exist.eSign Date and TimeArthur Ibrahim MD Verified/Reviewed by 05/14/18 0723 Normal [facility] BMPon 05-13-2018 Anion gap 3 molar conc 8 mmol/L Normal 5-16 [facility] Comment on above: Order Comment: Nenita s: M Performed By: #### L 200.59526 ####[facility] [id number] [place], [place] [address]Ad# [phone] Calcium mass conc 9.1 mg/dL Normal 8.5-10.1 [facility] Comment on above: Order Comment: Nenita s: M Performed By: #### L 200.08127 ####[facility] [id number] [place], [place] [address]Tk# [phone] Chloride molar conc 104 mmol/L Normal 98-107 [facility] Comment on above: Order Comment: Nenita s: M Performed By: #### L 200.06670 ####[facility] VUAQVRXQMQ6981 [place], [place] [address]Yx# [phone] CO2 molar conc 29 mmol/L Normal 21-32 [facility] Comment on above: Order Comment: Nenita s: M Performed By: #### L 200.24906 ####[facility] [id number] [place], [place] [address]Ta# [phone] Creatinine mass conc 4.840 mg/dL High 0.510-0.950 [facility] Comment on above: Order Comment: Nenita s: M Result Comment: Bea ents receiving either N-Acetylcysteine (NAC) orMetamizole prior to venipuncture, may have falsely depressedresults. Performed By: #### L 200.70421 ####[facility] [id number] [place], [place] [address]Tk# [phone] Glucose mass conc 161 mg/dL High 70-100 [facility] Comment on above: Order Comment: Nenita s: M Result Comment: 70-1 00- Normal Fasting; 100-125 Impaired Fasting; greaterthan 126 on more than one result- Diabetes. ADA guidelines.Results may be falsely elevated after the administration ofSulfapyridine.Results may be falsely depressed after the administration ofSulfasalazine. Performed By: #### L 200.56500 ####[facility] [id number] [place], [place] [address]To# [phone] Potassium molar conc 5.0 mmol/L Normal 3.5-5.1 [facility] [place] Comment on above: Order Comment: Nenita s: M Performed By: #### L 200.60516 ####[facility] [id number] [place], [place] [address]Pl# [phone] Sodium molar conc 140 mmol/L Normal 136-145 [facility] Comment on above: Order Comment: Campu s: M Performed By: #### L 200.82230 ####[facility] [id number] [place] [address]Gv# [phone] Urea nitrogen mass conc 39 mg/dL High 7-26 [facility] Comment on above: Order Comment: Campu s: M Performed By: #### L 200.23583 ####[facility] [id number] [place] [address]Dc# [phone] Urea nitrogen/Creatinine mass ratio 8 mg/mg Low 15-24 [facility] Comment on above: Order Comment: Campu s: M Performed By: #### L 200.81019 ####[facility] [id number] [place] [address]Pp# [phone] CBC W/DIFFon 05-13-2018 BASO ABS 0.10 K/CU MM Normal 0-0.2 [facility] Comment on above: Order Comment: Campu s: M Performed By: #### L 200.29010 ####[facility] [id number] [place] [address]6978Dg# [phone] Basophils/100 WBC Auto (Bld) 1.2 % Normal 0-2 [facility] Comment on above: Order Comment: Campu s: M Performed By: #### L 200.57618 ####[facility] [id number] [place] [address] 29944Pl# [phone] EOS ABS 0.10 K/CU MM Normal 0-0.5 [facility] Comment on above: Order Comment: Campu s: M Performed By: #### L 200.15644 ####[facility] [id number] [place] [address] 658[address]Zt# [phone] Eosinophils/100 WBC Auto (Bld) 2.7 % [facility] 0-5 [facility]: Order Comment: Campu s: M Performed By: #### L 200.49399 ####[facility] [id number] [place], [place] [address]Nq# [phone] Erythrocyte distribution width Auto Ratio (RBC) 12.7 % Normal 11-14.5 [facility] Comment on above: Order Comment: Campu s: M Performed By: #### L 200.54637 ####[facility] [id number] [place], [place] [id number]# [phone] Hematocrit Auto Volume Fraction (Bld) 28.0 % Low 35.0-47.0 [facility] Comment on above: Order Comment: Campu s: M Performed By: #### L 200.71651 ####[address] [address]Gv# [phone] Hemoglobin mass conc (Bld) 9.1 g/dL Low 11.5-15.5 [facility] Comment on above: Order Comment: Campu s: M Performed By: #### L 200.70711 ####[facility] [id number] [place], [place] [address]Ph# [phone] IMMATR GRAN ABS 0.00 K/CU MM Normal Less than 2 [facility] Comment on above: Order Comment: Campu s: M Performed By: #### L 200.22899 ####[facility] [id number] [place], [place] [address]Ph# [phone] IMMATURE GRAN % 0.2 % Normal Less than 2 [facility] Comment on above: Order Comment: Campu s: M Performed By: #### L 200.09164 ####[facility] [id number] [place], [place] [address]Ph# [phone] Lymphocytes Auto #/vol (Bld) 1.70 K/CU MM Normal 0.9-4.4 [facility] Comment on above: Order Comment: Campu s: M Performed By: #### L 200.54698 ####[facility] [id number] [place], [place] [address]Ha# [phone] Lymphocytes/100 WBC Auto (Bld) 32.5 % Normal 20-40 [facility] Comment on above: Order Comment: Campu s: M Performed By: #### L 200.35888 ####[facility] [id number] [place] [address] 88807Lg# [phone] MCHC Auto mass conc (RBC) 32.5 g/dL Normal 32.0-36.0 [facility] Comment on above: Order Comment: Campu s: M Performed By: #### L 200.39161 ####[place] [address]Ph# [phone] MCV Auto Entitic volume (RBC) 91.5 fL Normal 80.0-99.0 [facility] Comment on above: Order Comment: Campu s: M Performed By: #### L 200.99378 ####[facility] [id number] [place], [place] [address]Ph# [phone] MONO ABS 0.40 K/CU MM Normal 0.1-1.1 [facility] Comment on above: Order Comment: Campu s: M Performed By: #### L 200.62375 ####[facility] [id number] [place] [address] 50895Kv# [phone] Monocytes/100 WBC Auto (Bld) 7.9 % Normal 2-10 [facility] Comment on above: Order Comment: Campu s: M Performed By: #### L 200.95278 ####[facility] [id number] [place] [address] 20945Cd# [phone] NEUTROPHIL ABS 2.90 K/CU MM Normal 2.0-8.3 [facility] Comment on above: Order Comment: Campu s: M Performed By: #### L 200.93862 ####[facility] [id number] [place] [address] 41475Lh# [phone] Neutrophils/100 WBC Auto (Bld) 55.5 % Normal 45-75 [facility] Comment on above: Order Comment: Campu s: M Performed By: #### L 200.98613 ####[facility] [id number] [place] [address] 23173Ad# [phone] Nucleated RBC/100 WBC Ratio (Bld) 0.0 % Normal Less than 1 [facility] Comment on above: Order Comment: Campu s: M Performed By: #### L 200.74979 ####[facility] [id number] [place] [address] 49839Dh# [phone] Platelet mean volume Auto Entitic volume (Bld) 9.1 fL Low 9.4-12.4 [facility] Comment on above: Order Comment: Campu s: M Performed By: #### L 200.57473 ####[address] [address]Mg# [phone] Platelets Auto #/vol (Bld) 190 K/CU MM Normal 150-450 [facility] Comment on above: Order Comment: Campu s: M Performed By: #### L 200.12561 ####[facility] [id number] [place] [address] 68[address]Jb# [phone] RBC Auto #/vol (Bld) 3.06 M/CU MM Low 3.90-5[facility]30 [facility] Comment on above: Order Comment: Campu s: M Performed By: #### L 200.38568 ####[facility] [id number] [place] [address] 45489Da# [phone] WBC Auto #/vol (Bld) 5.2 K/CU MM Normal 4.5-11.0 [facility] Comment on above: Order Comment: Campu s: M Performed By: #### L 200.46811 ####[facility] [id number] [place] [address] 34417Zy# [phone] GFR ESTon 05-13-2018 IF AMER 11 ML/MIN Normal [facility] Comment on above: Order Comment: Campu s: M Performed By: #### L 200.60189 ####[facility] [id number] [place], [place] [address]Qd# [phone] IF non-AFR AMER 9 ML/MIN Normal [facility] Comment on above: Order Comment: Nenita s: M Performed By: #### L 200.68620 ####[facility] [id number] [place], [place] [address]Ru# [phone] GLUCOSE METERon 05-13-2018 Glucose mass conc 228 mg/dL High 85-125 [facility] Glucose mass conc 254 mg/dL High 85-125 [facility] Glucose mass conc 263 mg/dL High 85-125 [facility] Glucose mass conc 169 mg/dL High 85-125 [facility] Glucose mass conc 294 mg/dL High 85-125 [facility] IRON PANELon 05-13-2018 Iron mass conc 90 ug/dL Normal 50-170 [facility] Comment on above: Order Comment: Nenita s: M Result Comment: Bea ents treated with metal-binding drugs (e.g.deferoxamine)may have depressed iron values, as chelated iron may notproperly react in the Siemens iron assay. Performed By: #### L 500.45184, L500.36201 ####[facility] [id number] [place], [place] [address]Ej# [phone] IRON SAT 30 % Normal 22-44 [facility] Comment on above: Order Comment: Nenita s: M Performed By: #### L 500.98759, L500.12930 ####[facility] [id number] [place], [place] [address]Db# [phone] TIBC 305 UG/DL Normal 221-481 [facility] Comment on above: Order Comment: Nenita s: M Performed By: #### L 500.48146, L500.22501 ####[facility] [id number] [place], [place] [address]Gb# [phone] PROG IMSon 05-13-2018 Protein mass [facility] [place] Protein mass [facility] Patient Name: SANDY BHATTI [id number] Date of : [place] [address] Unit Number: [id number] Number: [id number] Note-Hospitalist Patient Status: ADM INoAttending Doctor: Anderson Rubio MDService Date: 05/13/18 1136Chief ComplaintChief ComplaintChest painSubjectiveS: (2 ROS minimum)Patient sleeping comfortably. Currently no chest pain. No shortness of breath. ReportsNitropaste is helping. Discussed with nursing.Objective (ROS)Nursing VitalsVital Signs (Last)ResultDate TimePulse Hw1642/09 1014B/P110/6209/09 4799Ktye73.909/09 0522Lqhvo2526/09 1624Tiye2276/09 1014O2 DeliveryROOM AIR/ 1814On examinationHEENT pupils are equal and reactive to light and accommodation. No pallor. No icterusNeck is suppleCardiovascular system S1-S2 normal. Systolic murmur heardChest clear bilateralAbdomen soft . Nontender. Bowel sounds present.Extremities trace edema bilateral lower extremitiesPatient is alert awake oriented to time place personNo distressDiagnostic Data:Lab 24hr (CBC/BMP [facility])05/13/18 1134:Whole Bld Glucose 263 H005/13/18 0743:Whole Bld [...] Calcium Cancelled, Iron Cancelled, TIBC Cancelled, IronSaturation Snirswqeg40/09/18 0527:Sodium Cancelled, Potassium Cancelled, Chloride Cancelled, Carbon Dioxide Cancelled, AnionGap Cancelled, BUN Cancelled, Creatinine Cancelled, BUN/Creatinine Ratio Cancelled,Glucose Cancelled, Total Calcium Cancelled, Iron Cancelled, TIBC Cancelled, IronSaturation Cancelled, WBC Cancelled, RBC Cancelled, Hgb Cancelled, Hct Cancelled, MCVCancelled, MCHC Cancelled, RDW Cancelled, Plt Count Cancelled, Seg Neutrophils % Cdklbbguo50/08/18 2151:Whole Bld Glucose 294 H09 1622:Whole Bld Glucose 42333 1142:Whole Bld Glucose 191 HAssessment and PlanConclusion1. Chest painAssessment and planChest pain rule out [place]. Patient chest pain-free On Nitropatch. Underwent cardiac [...] TimeAnderson Rubio MD Verified/Reviewed by 05/13/18 1138 [facility] [place] PROG.NEPHon 05-13-2018 Protein mass [facility] [place] Protein mass [facility] Patient Name: SANDY BHATTI [id number] Date of : [address] [address] Unit Number: [id number] Number: [id number] Note-Nephrology Patient Status: ADM INoAttending Doctor: Anderson Rubio MDService Date: 05/13/18 1431Progress Note-Nephrology([facility])Subj ectiveSubjective:pt feels gooddid not sleep well last nightno more chest pain since patches placedObjectiveVital Signs:Vital Signs (Last)ResultDate TimePulse Uj1046/ 1403B/P128/5909/09 8136Lmlg94.609/09 9291Pskmp5017/09 4717Lbbc7087/09 1403O2 DeliveryROOM AIR05/11 1814IandO 24 Hour Zapydmy43/09 0000Intake Exbik742Rtfytv Ulhke5529Oocdeny-375Hyxjsr , Klyc425Xwypnw, Nxtpu769Fzyyev, Wienp4Dfqtqv, Tqicw737Rejawnf828 lbWeightExam:LLEv8Bi JVDChest equal in expansion. No adventicious sounds appreciated.S1S2 heard. No rub.Abd Non-distended. Bowel sounds heard.Bilateral lower extremities: No edema/cyanosisCentral access:Medications:Medicat ions CurrentSig/SchStart timeLastMedicationDoseRout eStop TimeStatusAdminAmlodipine Ldnigcyc17 CZZMBM14/08 9942XR37/09(NORVASC TAB)RO3809Ruuagyj336 ZBDVMDVU29/08 3775IX14/09(ECOTRIN TAB.EC)CU1657Jsdrhjzsuppv Vfmuvur08 MGQHS09/07 2563GA93/08(LIPITOR TAB)DI5968Orjnutt Acetate1,334 EJKKITZ03/ 3512LS75/09(PHOSLO TAB)NP6016Vbfuvjxzu HCl0.3 MGBID09/07 9397CT81/09(CATAPRES TAB)CX5870Suxbccj Alfa20,000 UNITONCALL PRN09/08 0900AC(Procrit/Epogen Vial)IVHeparin Sodium5,000 CNYHKBO81/07 8873PH84/09(Porcine)YJ7926 (HEPARIN D.SYR)Hydrocodone Bitart/1 DLUCQ2YSKP PRN09/07 3388KK89/07AcetaminophenPO 1901(NORCO 5-325 TAB)Insulin Human LisproSee MiszUFXQ38/07 0897BH81/09(humaLOG/novoLO G PEN)Insts (1)VM9699Nejzauxrblfjz Sodium0.112 SBROAICW36/08 6519ZJ74/(SYNTHROID TAB)RO4280Wxlchnlrnl Tartrate5 BPO2LYRN PRN05/12 5436JA3808(LOPRESSOR AMP)VK0701Wmdtvwbedk Ynlhlqwz55 MGBID05/11 4849ED77/09(LOPRESSOR TAB)NY7678Sqnhxwudxsqyl3 ZNFET4B75/08 8637CO7109(NITRO-BID T.OINT)UM6311Cauvfteayrwol 0.4 OFO3JYIH PRN05/11 1400AC(NITROSTAT 0.4MGSLTAB.SL)Vitamin B Complex/1 MKMPLTG47/08 5606ZN10/09Folic GnxoGG5191(NEPHROCAPS/NEPH ROVITE CAP)Dose Instructions:(1)Insulin Human Lispro (humaLOG/novoLOG PEN):1-5 UnitsLab Results:Lab 24hr (CBC/BMP [facility])05/13/18 1134:Whole Bld Glucose 263 H005/13/18 0743:Whole Bld [...] Eosinophils #0.10, Basophils # 0.10, Nucleated RBCs 0.009/05/22 0600:Sodium Cancelled, Potassium Cancelled, Chloride Cancelled, Carbon Dioxide Cancelled, AnionGap Cancelled, BUN Cancelled, Creatinine Cancelled, BUN/Creatinine Ratio Cancelled,Glucose Cancelled, Total Calcium Cancelled, Iron Cancelled, TIBC Cancelled, IronSaturation Aobilcytz67/09/18 0527:Sodium Cancelled, Potassium Cancelled, Chloride Cancelled, Carbon Dioxide Cancelled, AnionGap Cancelled, BUN Cancelled, Creatinine Cancelled, BUN/Creatinine Ratio Cancelled,Glucose Cancelled, Total Calcium Cancelled, Iron Cancelled, TIBC Cancelled, IronSaturation Cancelled, WBC Cancelled, RBC Cancelled, Hgb Cancelled, Hct Cancelled, MCVCancelled, MCHC Cancelled, RDW Cancelled, Plt Count Cancelled, Seg Neutrophils % Nuhmuasgz77/08/18 2151:Whole Bld Glucose 294 H005/12/18 1622:Whole Bld Glucose 118Assessment/PlanAssessme nt/Problem List:1. Chest painfor heart cath tomorrowdialysis after that2. ESRD (end stage renal disease)dialysis after heart cath tomorrow3. Anemiaepo w dialysis4. Hypertensionwell controlledDisclaimerThis dictation was created using voice recognition software.Phonetic and/or minor grammatical errors may exist.eSign Date and TimeGarArthur dhaliwal MD Verified/Reviewed by 05/13/18 1433 Normal [facility] CBC W/DIFFon 05-12-2018 BASO ABS 0.10 K/CU MM Normal 0-0.2 [facility] Comment on above: Order Comment: Calebu s: M Performed By: #### L 200.82612 ####[facility] [id number] [place], [place] [address]Kt# [phone] Basophils/100 WBC Auto (Bld) 0.9 % Normal 0-2 [facility] Comment on above: Order Comment: Calebu s: M Performed By: #### L 200.79068 ####[facility] [id number] [place], [place] [address]Cx# [phone] EOS ABS 0.10 K/CU MM Normal 0-0.5 [facility] Comment on above: Order Comment: Campu s: M Performed By: #### L 200.28329 ####[facility] [id number] [place], [place] [address]Zv# [phone] Eosinophils/100 WBC Auto (Bld) 2.5 % Normal 0-5 [facility] Comment on above: Order Comment: Campu s: M Performed By: #### L 200.92594 ####[facility] [id number] [place], [place] [address]Wz# [phone] Erythrocyte distribution width Auto Ratio (RBC) 12.6 % Normal 11-14.5 [facility] Comment on above: Order Comment: Campu s: M Performed By: #### L 200.56067 ####[facility] [id number] [place], [place] [address]Ph# [phone] Hematocrit Auto Volume Fraction (Bld) 26.2 % Low 35.0-47.0 [facility] Comment on above: Order Comment: Campu s: M Performed By: #### L 200.70725 ####[address] [address]Ei# [phone] Hemoglobin mass conc (Bld) 8.3 g/dL Low 11.5-15.5 [facility] Comment on above: Order Comment: Campu s: M Performed By: #### L 200.28196 ####[facility] [id number] [place], [place] [address]Ph# [phone] IMMATR GRAN ABS 0.00 K/CU MM Normal Less than 2 [facility] Comment on above: Order Comment: Campu s: M Performed By: #### L 200.10933 ####[facility] [id number] [place], [place] [address]Ph# [phone] IMMATURE GRAN % 0.2 % Normal Less than 2 [facility] Comment on above: Order Comment: Campu s: M Performed By: #### L 200.54141 ####[facility] [id number] [place], [place] [address]Ph# [phone] Lymphocytes Auto #/vol (Bld) 2.10 K/CU MM Normal 0.9-4.4 [facility] Comment on above: Order Comment: Campu s: M Performed By: #### L 200.90068 ####[facility] EJZILZTMJR1793 [place], [place] [address]Nn# [phone] Lymphocytes/100 WBC Auto (Bld) 39.4 % Normal 20-40 [facility] Comment on above: Order Comment: Campu s: M Performed By: #### L 200.48835 ####[facility] MPIXQVXQJU204[address] [place] [address]Ks# [phone] MCHC Auto mass conc (RBC) 31.7 g/dL Low 32.0-36.0 [facility] Comment on above: Order Comment: Campu s: M Performed By: #### L 200.06347 ####[facility] [id number] [place], [place] [address]Ph# [phone] MCV Auto Entitic volume (RBC) 92.9 fL Normal 80.0-99.0 [facility] Comment on above: Order Comment: Campu s: M Performed By: #### L 200.71069 ####[facility] [id number] [place], [place] [address]Ph# [phone] MONO ABS 0.40 K/CU MM Normal 0.1-1.1 [facility] Comment on above: Order Comment: Campu s: M Performed By: #### L 200.05850 ####[facility] [id number] [place] [address]Tb# [phone] Monocytes/100 WBC Auto (Bld) 6.8 % Normal 2-10 [facility] Comment on above: Order Comment: Campu s: M Performed By: #### L 200.86760 ####[facility] [id number] [place] [address]Uo# [phone] NEUTROPHIL ABS 2.70 K/CU MM Normal 2.0-8.3 [facility] Comment on above: Order Comment: Campu s: M Performed By: #### L 200.78113 ####[facility] [id number] [place], [place] [address]Ph# [phone] Neutrophils/100 WBC Auto (Bld) 50.2 % Normal 45-75 [facility] Comment on above: Order Comment: Campu s: M Performed By: #### L 200.19237 ####[facility] [id number] [place] [address]Ea# [phone] Nucleated RBC/100 WBC Ratio (Bld) 0.0 % Normal Less than 1 [facility] Comment on above: Order Comment: Campu s: M Performed By: #### L 200.15013 ####[facility] [id number] [place], [place] [address]Ph# [phone] Platelet mean volume Auto Entitic volume (Bld) 9.3 fL Low 9.4-12.4 [facility] Comment on above: Order Comment: Campu s: M Performed By: #### L 200.16683 ####[facility] [id number] [place] [address]Fx# [phone] Platelets Auto #/vol (Bld) 193 K/CU MM Normal 150-450 [facility] Comment on above: Order Comment: Campu s: M Performed By: #### L 200.81395 ####[facility] [id number] [place] [address]Cm# [phone] RBC Auto #/vol (Bld) 2.82 M/CU MM Low 3.90-5.30 [facility] Comment on above: Order Comment: Campu s: M Performed By: #### L 200.41518 ####[facility] [id number] [place] [address] 85[address]Ve# [phone] WBC Auto #/vol (Bld) 5.3 K/CU MM Normal 4.5-11.0 [facility] Comment on above: Order Comment: Campu s: M Performed By: #### L 200.47877 ####[facility] [id number] [place] [address]Jk# [phone] CKMB PROFILEon 05-12-2018 CK enzyme act/vol 251 U/L High 26-192 [facility] Comment on above: Order Comment: Campu s: M Result Comment: Mode rate Hemolysis, Result may be falsely increased. Performed By: #### L 500.72965, L550.00932 ####[facility] [id number] [place], [place] [address]Ck# [phone] CK.MB mass conc 3.0 ng/mL Normal 0.5-3.6 [facility] Comment on above: Order Comment: Campu s: M Performed By: #### L 500.29019, L550.06458 ####[address] [address]Ds# [phone] RI 1.2 Normal 0-2.5 [facility] Comment on above: Order Comment: Campu s: M Performed By: #### L 500.13319, L550.86222 ####[place] [address]Ph# [phone] RI TNP Normal 0-2.5 [facility] Comment on above: Order Comment: Campu s: M Performed By: #### L 500.34840, L550.62855 ####[facility] [id number] [place] [address]Kx# [phone] CK enzyme act/vol 49 U/L Normal 26-192 [facility] Comment on above: Order Comment: Campu s: M Performed By: #### L 500.85560, L550.36938 ####[facility] [id number] [place] [address]Sr# [phone] CK.MB mass conc 2.4 ng/mL Normal 0.5-3.6 [facility] Comment on above: Order Comment: Campu s: M Performed By: #### L 500.41050, L550.39525 ####[facility] [id number] [place] [address]Pz# [phone] CONS.Cristofer 05-12-2018 CONS.CARD [facility] Patient Name: SANDY BHATTI [id number] [facility] Date of : [address] [address] Unit Number: [id number] Number: [id number] Patient Status: ADM INoAttending Doctor: Anderson Rubio MDService Date: 05/12/18 1325History of Present IllnessReferring PhysicianAnderson Rubio MDConsulted ProviderJc Lewis MDSource of Information Patient (medical record)Reason for ConsultAbnormal stressLiving Situation Home - IndependentHistory of Present IllnessPatient is a 53-year-old female end-stage renal disease on hemodialysis, nephroticsyndrome, diabetes mellitus was transferred from [facility] in hospital where she wasevaluated for chest pain. Patient states it started while sitting in her cahir.Chest pain was on and off throughout the morning. She describes pressure sitting on herchest sometimes at a 10 out of 10. She had associated nausea, diaphoresis and shortnessof breath. She denies any radiation of the pain. No lightheadedness, dizziness orsyncope. Troponins negative. Patient was transferred to [facility] for furthercardiac evaluation. Currently patient denies any chest pain. ER physician from [facility] mentioned that chest pain responded to nitroglycerin. Patient had [facility]accatheterization [facility] many years ago with the no [...] on 09/29/171613Last Action: Continued on 05/11/181551 by ANDERSON RUBIOAspirin* (Aspir 81 MG Tab*) 81 MG TABLET. 81 MG PO QDAYWM, Ref 0 (Reported)TO CONTINUE FOR PROCEDURE PER 'S INSTRUCTIONSEntered as Reported by BHANU COLUNGA on 09/29/171611Las Action: Held on 05/11/181552 by Kam RUBIO Calcium* (Lipitor 40MG Tab*) 40 MG TABLET 40 MG PO QHS, Ref 0 (Reported)Entered as Reported by BHANU COLUNGA on 09/29/171611Last Action: Continued on 05/11/18 155 by ANDERSON RUBIOCalcium Acetate* (Phoslo cap*) 667 MG CAPSULE 1,334 MG PO TIDWM, Ref 0 (Reported)Entered as Reported by KARTHIKEYAN ANDERS on 03/19/181403Last Action: Continued on 05/11/18 155 by ANDERSON RUBIOcloNIDine HCL* (Catapres 0.2MG Tab*) 0.2 MG TABLET 0.3 MG PO BID, Ref 0 (Reported)Entered as Reported by BHANU COLUNGA on 09/29/171613Last Action: Continued on 05/11/18 155 by ANDERSON RUBIOFolic Acid/Vitamin B Comp W-C* (Nephrocaps Softgel*) 1 MG CAPSULE 1 CAP PO QDAY, Ref 0(Reported)Entered as Reported by KARTHIKEYAN ANDERS on 03/19/181403Last Action: Continued on 05/11/18 155 by YAMILETH RUBIOHAInsulin Aspart (Novolog) 100 UNIT/1 ML VIAL 8 UNITS TIDAC, Ref 0 (Reported)Entered as Reported by BHANU COLUNGA on 09/29/17 1613Last Action: Held on 05/11/18 155 by DIMA RUBIOnsulin Degludec (Tresiba Flextouch U-100) 100 UNIT/1 ML INSULN.PEN 40 UNIT SQ QHS, Ref0 (Reported)Entered as Reported by KARTHIKEYAN ANDERS on 03/19/18 1405Last Action: Held on 05/11/18 155 by MARIEL RUBIOevothyroxi ne Sodium* (Synthroid 0.112MG Tab*) 112 MCG TABLET 0.112 MG PO QDAYAC, Ref 0(Reported)Entered as Reported by BHANU COLUNGA on 09/29/17 1611Last Action: Continued on 05/11/181551 by Marques RUBIOetoprolol TARTRATE* (Lopressor 50MG Tab*) 50 MG TABLET 50 MG PO BID, Ref 0 (Reported)Entered as Reported by BHANU COLUNGA on 09/29/17 1610Last Action: Continued on 05/11/181551 by Rudi RUBIOatient MedicationsMedications CurrentSig/SchStart timeLastMedicationDoseRout eStop TimeStatusAdminAmlodipine Acunpjnq59 UWTQAZ57/08 0900AC(NORVASC TAB)HPZladpmz666 UNAIBWQN64/08 0800AC(ECOTRIN TAB.EC)POAtorvastatin Zxyyvmv08 MGQHS09/07 4159SA99/07(LIPITOR TAB)LL0367Usxfxhp Acetate1,334 WIXNDNB61/07 5202QR14/07(PHOSLO TAB)YS1760Wlgwozecp HCl0.3 MGBID09/07 8453BG46/07(CATAPRES TAB)CE1026Vnnuvcg Alfa20,000 UNITONCALL PRN09/08 0900AC(Procrit/Epogen Vial)IVHeparin Sodium5,000 MZVWVQV87/07 8344QC90/07(Porcine)LR2957 (HEPARIN D.SYR)Hydrocodone Bitart/1 YVYOM4LOBX PRN09/07 0514FS82/07AcetaminophenPO 1901(NORCO 5-325 TAB)Insulin Human LisproSee KojwCPAH33/ 5558KR02/07(humaLOG/novoLO G PEN)Insts (1)NW4958Fdazwpkvrtgid Sodium0.112 XZTXVULQ94/08 8815JP39/08(SYNTHROID TAB)GL4079Ilvkgvpbsp Xopomuxc52 MGBID09 6020WI42/07(LOPRESSOR TAB)BT4717Gejkfqgzipwtn9.5 EVDSO0O73/07 0027UF99/08(NITRO-BID T.OINT)GL9496Hvzxqgvwpruus 0.4 ESL2APBW PRN05/11 1400AC(NITROSTAT 0.4MGSLTAB.SL)Vitamin B Complex/1 KHFWXEX41/08 0900ACFolic AcidPO(NEPHROCAPS/NEPHROVI TE CAP)Dose Instructions:(1)Insulin Human Lispro (humaLOG/novoLOG PEN):1-5 UnitsReview of SystemsROS: OtherBeyond what was mentioned in HPI, 10 systems were reviewed and negativePhysical ExamVital SignsVital Signs (Last)ResultDate TimePulse Zp0073/08 0640B/P156/6409/08 6820Qapt17.409/08 1000Zwnqx1417/08 7452Vlif6893/08 0640O2 DeliveryROOM AIR05/11 1814Vital Signs (24hr)DateTempPulseRespB/P B/P MeanPulse TrEpG188/07-05/898.2-98.4 31-8231-74354-157/59-6494- 99Physical Examination SummaryGeneral: Well-appearing, well-nourished and in no acute distress.Head: Atraumatic, normocephalic.Eyes: Sclera anicteric, conjunctiva light pink.ENT: Oropharynx without rendess or swelling. [place], moist mucous membranes.Neck: Supple without lymphadenopathy, thyromegaly [...] No rashes or lesions noted.Diagnostic Data:Laboratory Tests05/809/808/ [id number] dium (136 - 145 MMOL/L)142Potassium (3.5 - [...] 44 %)26Creatine Kinase (26 - 192 U/L)251 E28SO-QI (CK-2) (0.5 - 3.6 NG/ML)3.02.4CK-MB (CK-2) Rel [...] 0.2 K/CU MM)0.10Nucleated RBCs (Less than 1 %)0.009/0709/0709/0709/070 9/8348918796050520953807Vg emistryWhole Bld Glucose (85 - 125 MG/DL)307 H216 E71301 LCreatine Kinase (26 - 192 U/L)59CK-MB (CK-2) (0.5 - 3.6 NG/ML)2.2CK-MB (CK-2) Rel Index (0 - 2.5)TNPTroponin I (0.000 - 0.045 NG/ML)0.051 HEK05/12/18 sinus tachycardia, LAD, LVH with repolarization abnormality. Rate 102, ME 170,QTc 487. T wave inv I, aVLConclusion / PlanConclusion/Plan1. Chest painPatient is a 53-year-old female end-stage renal disease on hemodialysis, nephroticsyndrome, diabetes mellitus was transferred from [facility] in hospital where she wasevaluated for chest pain. Patient states it started yesterday and was on and offthroughout the morning. She describes the feeling as a chair sitting on her chestsometimes at a 10 out of 10. She had associated nausea and shortness of breath. Shedenies any radiation of the pain. No lightheadedness, dizziness or syncope. Troponinsnegative. Patient was transferred to [facility] for further cardiac evaluation.Currently patient still [...] a historyof stents in the past. CP 4/10 now.Seen and examined withJc Lewis MDDisclaimerThis dictation was created using voice recognition software.Phonetic and/or minor grammatical errors may exist.eSign Date and TimeJc Lewis MD Verified/Reviewed by 05/12/18 Ge Keane [facility] Consultation-Cardiolo gy Normal [facility] GFR ESTon 05-12-2018 IF AMER 8 ML/MIN [facility] Comment on above: Order Comment: Nenita s: M Performed By: #### L 500.44322, L500.67053, L500.00802 ####[facility] [id number] [place], [place] [address]Wg# [phone] IF non-AFR AMER 7 ML/MIN Normal [facility] Comment on above: Order Comment: Nenita s: M Performed By: #### L 500.52733, L500.78325, L500.89409 ####[facility] [id number] [place], [place] [address]Se# [phone] GLUCOSE METERon 05-12-2018 Glucose mass conc 118 mg/dL Normal 85-125 [facility] Glucose mass conc 191 mg/dL High 85-125 [facility] IRON PANELon 05-12-2018 Iron mass conc 76 ug/dL Normal 50-170 [facility] Comment on above: Order Comment: Nenita munoz: Chris Result Comment: Bea ents treated with metal-binding drugs (e.g.deferoxamine)may have depressed iron values, as chelated iron may notproperly react in the Siemens iron assay. Performed By: #### L 500.18472, L500.50133, L500.71445 ####[facility] [id number] [place], [place] [address]So# [phone] IRON SAT 26 % Normal 22-44 [facility] Comment on above: Order Comment: Nenita s: M Performed By: #### L 500.83943, L500.01360, L500.59325 ####[facility] [id number] [place], [place] [address]Ld# [phone] TIBC 294 UG/DL Normal 221-481 [facility] Comment on above: Order Comment: Nenita s: M Performed By: #### L 500.25533, L500.42888, L500.14996 ####[facility] [id number] [place], [place] [address]Dn# [phone] PROG IMSon 05-12-2018 Protein mass conc Normal [facility] Protein mass conc [facility] Patient Name: SANDY BHATTI [id number] [facility] Date of : [address] [address] Unit Number: [id number] Number: [id number] Note-Hospitalist Patient Status: ADM INoAttending Doctor: Anderson Rubio MDService Date: 05/12/18 1319Chief ComplaintChief ComplaintChest painSubjectiveS: (2 ROS minimum)Patient has some chest pain but comfortable now. No shortness of breath. Patient hadstress test and then went to hemodialysis.Objective (ROS)Nursing VitalsVital Signs (Last)ResultDate TimePulse By2464/08 0640B/P156/6409/08 1414Xhyq82.409/08 5214Peliw5894/08 5202Ucpr3667/08 0640O2 DeliveryROOM AIR05/11 1814On examinationHEENT pupils are equal and reactive to light and accommodation. No pallor. No icterusNeck is suppleCardiovascular system S1-S2 normal. Systolic murmur heardChest clear bilateralAbdomen soft . Nontender. Bowel sounds present.Extremities trace edema bilateral lower extremitiesPatient is alert awake oriented to time place personNo distressDiagnostic Data:Lab 24hr (CBC/BMP [facility])05/12/18 1142:Whole Bld Glucose 191 05/12/18 0415:Creatine Kinase 251 H, CK-MB (CK-2) 3.0, CK-MB (CK-2) Rel Index 1.2, Troponin I 0.047 05/12/18 0415:[Embedded Image Not Available]Anion Gap 10, Est GFR ( Amer) 8, Est GFR (Non-Af Amer) 7, BUN/Creatinine Ratio 9 L,Glucose 145 H, Total Calcium 8.4 L, Phosphorus 8.5 H, Iron 76, TIBC 294, Iron Tmblkdoazw69, Albumin 2.6 L, RBC 2.82 L, MCV [...] (CK-2) Rel Index TNP, Troponin I 0.066 H005/11/18 2106:Whole Bld Glucose 307 H005/11/18 1803:Whole Bld Glucose 216 H005/11/18 1647:Creatine Kinase 59, CK-MB (CK-2) 2.2, CK-MB (CK-2) Rel Index TNP, Troponin I 0.051 05/11/18 1423:Whole Bld Glucose 5644505/11/18 1328:Whole Bld Glucose 56 LAssessment and PlanConclusion1. Chest painAssessment and planChest pain rule out [place]. Patient has on and off chest pain. [...] Rubio MD Verified/Reviewed by 05/12/18 1320 Normal [facility] PROG.NEPHon 05-12-2018 Protein mass conc [facility] Patient Name: SANDY BHATTI [id number] [facility] [address] Date of : [address] [address] Unit Number: [id number] Number: [id number] Note-Nephrology Patient Status: ADM INoAttending Doctor: Anderson Rubio MDService Date: 05/12/18 1357Progress Note-Nephrology([facility])Subj ectiveSubjective:ctspt - developed cp on dialysis w sob - not as severe as yesterdayno n/v/palpnObjectiveVital Signs:Vital Signs (Last)ResultDate TimePulse Nt6362/08 0640B/P156/6409/08 1307Iurb35.409/08 2674Rahpv4754/08 2743Jdby7849/08 0640O2 DeliveryROOM AIR05/11 1814IandO 24 Hour Ucauced96/08 0000Intake Ymnzf351Zasdcf Yqlia303Weczinr-53Upxmkl, Oajq966Ohsftf4YdlgeoeicuFv idsOutput, Lvcst6Diyslj, Rvrdn745Olmnouu620 lbWeightExam:BUOb5Zt JVDChest equal in expansion. No adventicious sounds appreciated.S1S2 heard. No rub.sl tachycardia 110 nowAbd Non-distended. Bowel sounds heard.Bilateral lower extremities: No edema/cyanosisDialysis access:Central Access:Medications:Medicat ions CurrentSig/SchStart timeLastMedicationDoseRout eStop TimeStatusAdminAmlodipine Wmylpxbr89 JJYLCQ24/08 0900AC(NORVASC TAB)YBNfbqphn457 JFOUHYFQ55/08 0800AC(ECOTRIN TAB.EC)POAtorvastatin Onxljal60 MGQHS09/07 7509MV39/07(LIPITOR TAB)SC1928Fmhhtfj Acetate1,334 KASTSJL78/07 0506KJ13/07(PHOSLO TAB)UK3270Wjutwoxjw HCl0.3 MGBID09/07 1981TX75/07(CATAPRES TAB)HA4719Fhlfgoj Alfa20,000 UNITONCALL PRN09/08 0900AC(Procrit/Epogen Vial)IVHeparin Sodium5,000 XCSNOOH69/07 0366EQ11/07(Porcine)DM4658 (HEPARIN D.SYR)Hydrocodone Bitart/1 VKHTQ6QLGU PRN09/07 6159RT69/07AcetaminophenPO 1901(NORCO 5-325 TAB)Insulin Human LisproSee FvmhAXXD66/07 6617MJ29/07(humaLOG/novoLO G PEN)Insts (1)AU8032Cfpaijzdlbopu Sodium0.112 IDHBRUCB49/08 8266GA93/08(SYNTHROID TAB)PP9175Noviqkgqsn Jtstzwzp90 MGBID09/07 2420IX50/07(LOPRESSOR TAB)FT1863Lufxewkzlleri0.5 FKGSR4C09/07 2602AT09/08(NITRO-BID T.OINT)KI4110Btfxngsbxtnvq 0.4 YFQ7GQXZ PRN09/07 1400AC(NITROSTAT 0.4MGSLTAB.SL)Vitamin B Complex/1 GLLGSIA17/08 0900ACFolic AcidPO(NEPHROCAPS/NEPHROVI TE CAP)Dose Instructions:(1)Insulin Human Lispro (humaLOG/novoLOG PEN):1-5 UnitsLab Results:Lab 24hr (CBC/BMP [facility])05/12/18 1142:Whole Bld Glucose 191 05/12/18 0415:Creatine Kinase 251 H, CK-MB (CK-2) 3.0, CK-MB (CK-2) Rel Index 1.2, Troponin I 0.047 05/12/18 0415:[Embedded Image Not Available]Anion Gap 10, Est GFR ( Amer) 8, Est GFR (Non-Af Amer) 7, BUN/Creatinine Ratio 9 L,Glucose 145 H, Total Calcium 8.4 L, Phosphorus 8.5 H, Iron 76, TIBC 294, Iron Unorepuent45, Albumin 2.6 L, RBC 2.82 L, MCV 92.9, MCHC 31.7 L, RDW 12.6, MPV 9.3 L, Immature Gran %(Auto) 0.2, Abs Immat Gran (auto) 0.00, Seg Neutrophils % 50.2, Lymphocytes % 39.4,Monocytes % 6.8, Eosinophils % 2.5, Basophils % 0.9, Neutrophils # 2.70, Lymphocytes #2.10, Monocytes # 0.40, Eosinophils # 0.10, Basophils # 0.10, Nucleated RBCs 0. 2314:Creatine Kinase 49, CK-MB (CK-2) 2.4, CK-MB (CK-2) Rel Index TNP, Troponin I 0.066 05/11/18 2106:Whole Bld Glucose 307 05/11/18 1803:Whole Bld Glucose 216 05/11/18 1647:Creatine Kinase 59, CK-MB (CK-2) 2.2, CK-MB (CK-2) Rel Index TNP, Troponin I 0.051 05/11/18 1423:Whole Bld Glucose 109Assessment/PlanAssessme nt/Problem List:1. Chest painstoppoing dialysis and getting ekgcardiologist here and considering taking her to laboratory worker either today or Monday - if painnot resolve or sig ekg changes, laboratory worker today.2. ESRD (end stage renal disease)3. Anemia4. HypertensionDisclaimerThis dictation was created using voice recognition software.Phonetic and/or minor grammatical errors may exist.eSign Date and TimeArthur Ibrahim MD Verified/Reviewed by 05/12/18 1359 Normal [facility] Protein mass conc Normal [facility] Protein mass conc Normal [facility] Protein mass conc [facility] Patient Name: SANDY BHATTI [id number] [facility] [address] Date of : [address] [address] Unit Number: [id number] Number: [id number] Note-Nephrology Patient Status: ADM INoAttending Doctor: Anderson Rubio MDService Date: 05/12/18 1152Progress Note-Nephrology([facility])Subj ectiveSubjective:pt seen after sthad some cpcomfortable nowno sobObjectiveVital Signs:Vital Signs (Last)ResultDate TimePulse Xh6265/08 0640B/P156/6409/08 3913Ghvd43.409/08 0640Oqyki7435/08 0519Twhv5342/08 0640O2 DeliveryROOM AIR/ 1814IandO 24 Hour Ljpqwtq59/08 0000Intake Sappw422Zqhmom Qbyqg839Jkojfpu-28Zjpnjq, Nejg745Eqbulq0GrlrzothecAt idsOutput, Uxivu2Hsvpsw, Opapv357Pdphzmc505 lbWeightExam:VSCo8Ti JVDChest equal in expansion. No adventicious sounds appreciated.S1S2 heard. No rub.Abd Non-distended. Bowel sounds heard.Bilateral lower extremities: No edema/cyanosisDialysis access: Rijte lineCentral Access:Medications:Medicat ions CurrentSig/SchStart timeLastMedicationDoseRout eStop TimeStatusAdminAmlodipine Hmitnpwc02 ZYGIPU74/08 0900AC(NORVASC TAB)YMZpguqdi330 OEATIGBO74/ 0800AC(ECOTRIN TAB.EC)POAtorvastatin Dhmnsgm40 MGQHS09/07 9325LE56/07(LIPITOR TAB)GQ8171Tenrzay Acetate1,334 FSWJKRK78/ 7543KG22/07(PHOSLO TAB)XE5674Muknpyead HCl0.3 MGBID09/07 8010CP86/07(CATAPRES TAB)YI3606Swupqyx Alfa20,000 UNITONCALL PRN09/08 0900AC(Procrit/Epogen Vial)IVHeparin Sodium5,000 HKDDVBK16/07 9034ZQ77(Porcine)VV6959 (HEPARIN D.SYR)Hydrocodone Bitart/1 XYEOE4JXXZ PRN09 3885KJ26/07AcetaminophenPO 1901(NORCO 5-325 TAB)Insulin Human LisproSee PzzxLXXW00/ 5933FM71/07(humaLOG/novoLO G PEN)Insts (1)OH3888Rdiiginbtcdmu Sodium0.112 HGGEKDJY51/08 8467PA95/08(SYNTHROID TAB)MG5005Careszuuha Whtoyrdq28 MGBID09/20995289GC62(LOPRESSOR TAB)QB3752Pigednhojnwxp2.5 YULOQ6T87/07 4171ML6308(NITRO-BID T.OINT)DF9757Pvmxlkipknwan 0.4 WKE4TLTJ PRN09/07 1400AC(NITROSTAT 0.4MGSLTAB.SL)Vitamin B Complex/1 IJEGRZO39/08 0900ACFolic AcidPO(NEPHROCAPS/NEPHROVI TE CAP)Dose Instructions:(1)Insulin Human Lispro (humaLOG/novoLOG PEN):1-5 UnitsLab Results:Lab 24hr (CBC/BMP Fishbone)05/12/18 1142:Whole Bld Glucose 191 H005/12/18 0415:Creatine Kinase 251 H, CK-MB (CK-2) 3.0, CK-MB (CK-2) Rel Index 1.2, Troponin I 0.047 H005/12/18 0415:[Embedded Image Not Available]Anion Gap 10, Est GFR ( Amer) 8, Est GFR (Non-Af Amer) 7, BUN/Creatinine Ratio 9 L,Glucose 145 H, Total Calcium 8.4 L, Phosphorus 8.5 H, Iron 76, TIBC 294, Iron Ofpsthfdoc86, Albumin 2.6 L, RBC 2.82 L, MCV [...] Troponin I 0.051 05/11/18 1423:Whole Bld Glucose 22343 1328:Whole Bld Glucose 56 LAssessment/PlanAssessment /Problem List:1. Chest painst todaywu in progress2. ESRD (end stage renal disease)on dialysis currently3. Anemiaepo w dialysischeck iron stores4. Hypertensionmodestly well controlledcontinue w current regimen.DisclaimerThis dictation was created using voice recognition software.Phonetic and/or minor grammatical errors may exist.eSign Date and TimeArthur Ibrahim MD Verified/Reviewed by 05/12/18 1155 Normal [facility] RENALon 05-12-2018 Albumin mass conc 2.6 g/dL Low 3.2-5.0 [facility] Comment on above: Order Comment: Nenita s: M Performed By: #### L 500.77056, L500.52799, L500.90860 ####[facility] [id number] [place], [place] [address]Xu# [phone] Anion gap 3 molar conc 10 mmol/L Normal 5-16 [facility] Comment on above: Order Comment: Campu s: M Performed By: #### L 500.44868, L500.28483, L500.99254 ####[facility] TIZIHRYJCK9400 [place], [place] [address]Xp# [phone] Calcium mass conc 8.4 mg/dL Low 8.5-10.1 [facility] Comment on above: Order Comment: Campu s: M Performed By: #### L 500.46479, L500.22813, L500.70351 ####[facility] [id number] [place], [place] [address]Ed# [phone] Chloride molar conc 104 mmol/L Normal 98-107 [facility] Comment on above: Order Comment: Campu s: M Performed By: #### L 500.96746, L500.58972, L500.45551 ####[facility] KUEGPKNDDK9711 [place], [place] [address]Kj# [phone] CO2 molar conc 27 mmol/L Normal 21-32 [facility] Comment on above: Order Comment: Campu s: M Performed By: #### L 500.23207, L500.93530, L500.99891 ####[facility] [id number] [place], [place] [address]Er# [phone] Creatinine mass conc 6.290 mg/dL High 0.510-0.950 [facility] Comment on above: Order Comment: Campu s: M Result Comment: Bea ents receiving either N-Acetylcysteine (NAC) orMetamizole prior to venipuncture, may have falsely depressedresults. Performed By: #### L 500.49532, L500.40297, L500.66198 ####[facility] [id number] [place], [place] [address]Hb# [phone] Glucose mass conc 145 mg/dL High 70-100 [facility] Comment on above: Order Comment: Campu s: M Result Comment: 70-1 00- Normal Fasting; 100-125 Impaired Fasting; greaterthan 126 on more than one result- Diabetes. ADA guidelines.Results may be falsely elevated after the administration ofSulfapyridine.Results may be falsely depressed after the administration ofSulfasalazine. Performed By: #### L 500.45217, L500.03510, L500.11218 ####[facility] ETPORXFJOR5406 [place], [place] [address]Vt# [phone] Phosphate mass conc 8.5 mg/dL High 2.5-4.9 [facility] Comment on above: Order Comment: Campu s: M Performed By: #### L 500.53900, L500.60226, L500.66647 ####[facility] FERHEIAHTY4867 [place], [place] [address]Ml# [phone] Potassium molar conc 5.1 mmol/L Normal 3.5-5.1 [facility] Comment on above: Order Comment: Campu s: M Performed By: #### L 500.31466, L500.86592, L500.75118 ####[facility] [id number] [place], [place] [address]Sg# [phone] Sodium molar conc 142 mmol/L Normal 136-145 [facility] Comment on above: Order Comment: Campu s: M Performed By: #### L 500.04611, L500.75149, L500.52590 ####[facility] NWOCLOMLAI4813 [place], [place] [address]Wh# [phone] Urea nitrogen mass conc 56 mg/dL High 7-26 [facility] Comment on above: Order Comment: Campu s: M Performed By: #### L 500.81502, L500.74078, L500.22023 ####[facility] ZZWZTOGFHV5844 [place], [place] [address]Aa# [phone] Urea nitrogen/Creatinine mass ratio 9 mg/mg Low 15-24 [facility] Comment on above: Order Comment: Campu s: M Performed By: #### L 500.56776, L500.39482, L500.86360 ####[facility] [id number] [place], [place] [address]Ex# [phone] TROPONIN Ion 05-12-2018 Troponin I.cardiac mass conc 0.047 ng/mL High 0.000-0.045 [facility] Comment on above: Order Comment: Calebu s: M Performed By: #### L 500.89658, L550.64678 ####[facility] LAOXMKGVBN8474 [place], [place] [address]Ef# [phone] Troponin I.cardiac mass conc 0.066 ng/mL High 0.000-0.045 [facility] Comment on above: Order Comment: Calebu s: M Performed By: #### L 500.38136, L550.89298 ####[facility] [id number] [place], [place] [address]Tw# [phone] CCon 05-11-2018 CC DATE OF SERVICE: 05/14/2018INDICATIONS: Unstable angina with positive stress test.PROCEDURE: Right femoral arteriotomy, right and left coronary cineangiogram, leftventriculogram, right femoral angiogram and a closure device insertion.The patient was brought to the catheterization lab in a fasting state. Both groinswere prepped and draped in a sterile fashion. A 6-Spanish sheath was then placed inthe right femoral [...] be the best answer andalso nitrates. VALERIO Acuña/[id number]: 05/14/2018 08:49DT: 05/14/2018 11:24SSI File#: [id number] #: [id number] [facility] PATIENT NAME: SANDY BHATTI K[address] [facility] [address] [facility] MEDICAL REC #: [id number], [place] [address] DATE: 05/11/18DISCHARGE DATE: 05/15/18CARDIAC CATH ATTENDING PHY: Anderson Rubio MDVerified/Reviewed by05/17/18 1620 TASH [facility] PATIENT NAME: SANDY BHATTI [facility] [address] [place] MEDICAL REC #: [id number], [place] [address] DATE: 05/11/18DISCHARGE DATE: 05/15/18CARDIAC CATH ATTENDING PHY: Anderson Rubio MD [facility] CCCASEon 05-11-2018 [facility] Directions to mirna w CARDIAC END OF CASE REPORT in a PDF formatTo view the Cardiac END OF CASE reportyou must go to Clinical Review (PWM/Physician Desktop) and- Select the patient- Select the Vist the report is on- Click the Globe on the bottom left and the PDF report will launch(PDF's can't be viewed in Optherion directly)\\[facility] hospitalyxperif.Dealflicks\Case_Reports\TX8000 _DOC_000.pdf [facility] CDLSTRESSon 05-11-2018 CARDIAC STRESS TEST REPORT [facility] CDLSTRESS INTERPRETING PHYSICI AN: Jc Lewis MDATTENDING PHYSICIAN: [...] Lexiscan administration.3. Nuclear images are pending. VALERIO Acuña/[id number] [facility] PATIENT NAME: SANDY BHATTI [facility] [address] MEDICAL REC #: [id number], [place] [address] DATE: 05/11/18DISCHARGE DATE: 05/15/18ATTENDING PHY: Anderson Rubio [facility] REPORTDD: 05/12/2018 16:51DT: 05/12/2018 18:39SSI File#: [id number] #: [id number]/Reviewed [id number] [facility] PATIENT NAME: SANDY BHATTI [facility] [address] [place] MEDICAL REC #: [id number], [place] [address] DATE: 05/11/18DISCHARGE DATE: 05/15/18ATTENDING PHY: Anderson Rubio [facility] REPORT Normal [facility] INTERPRETING PHYSICI AN: Jc Lewis MDATTENDING PHYSICIAN: [...] Mild stress dilatation was noted. ___Jc Lewis, [facility] PATIENT NAME: SANDY BHATTI [facility] MEDICAL REC #: [id number], [place] [address] DATE: 05/11/18DISCHARGE DATE: 05/15/18ATTENDING PHY: Anderson Rubio [facility]OR[facility] STRESS TEST REPORTGK/[id number]: 05/12/2018 12:07DT: 05/12/2018 14:17SSI File#: [id number] #: [id number]/Reviewed by05/17/137999 [facility] PATIENT NAME: SANDY BHATTI [facility] [facility] MEDICAL REC #: [id number], [place] [address] DATE: 05/11/18DISCHARGE DATE: 05/15/18ATTENDING PHY: Anderson Rubio [facility] REPORT Normal [facility] CKMB PROFILEon 05-11-2018 RI TNP Normal 0-2.5 [facility] Comment on above: Order Comment: Campu s: MPatient transfused or in the past 3 months? NOIs This Patient Going To Surgery? YSurgery Date: 10/04/17 Performed By: #### L 500.06346, L550.98876 ####[facility] [id number] [place], [place] [address]Kr# [phone] CK enzyme act/vol 59 U/L Normal 26-192 [facility] Comment on above: Order Comment: Campu s: MPatient transfused or in the past 3 months? NOIs This Patient Going To Surgery? YSurgery Date: 10/04/17 Performed By: #### L 500.73379, L550.29318 ####[facility] NPYWAHBAMP3110 [place], [place] [address]Qa# [phone] CK.MB mass conc 2.2 ng/mL Normal 0.5-3.6 [facility] Comment on above: Order Comment: Campu s: MPatient transfused or in the past 3 months? NOIs This Patient Going To Surgery? 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 [place], [place] underthe expert care of Dr. Lane Falk [...] and kidney failure.SOCIAL HISTORY: She lives in [place] with her , quit smoking 3 years ago.Does not drink any alcohol or use any other drugs. She does not work outside [facility].ALLERGIES: CODEINE, LATEX, AND PENICILLINS.MEDICATIONS AT HOME:1. Amlodipine.2. Aspirin.3. Atorvastatin.4. Calcium.5. Clonidine.6. Folic acid.7. Insulin.8. Synthroid.9. Metoprolol.REVIEW OF SYSTEMS: Please see history of present illness.PHYSICAL EXAMINATION: [facility] PATIENT NAME: SANDY BHATTI K[address] [facility] [address] [facility] MEDICAL REC #: [id number], [place] [address] DATE: 05/11/18DISCHARGE DATE:CONSULTATION REPORT ATTENDING PHY: Anderson Rubiotal signs: Temperature 98.1, heart rate 104, respiratory rate 18, blood bwfgumzy513/68.General: She is a well-appearing white female in [...] iron levels.4. Hypertension. Blood pressure is well-controlled. AMINA Chavez/[id number]: 05/11/2018 17:02DT: 05/12/2018 10:03SSI File#: [id number] #: [id number]/Reviewed by05/14/18 0731 FER [facility] PATIENT NAME: SAND[facility] BHATTI[address] [facility] [address] [facility] MEDICAL REC #: [id number], [place] [address] DATE: 05/11/18DISCHARGE DATE:CONSULTATION REPORT ATTENDING PHY: Anderson Rubio [facility]2018 Glucose mass conc 307 mg/dL High 85-125 [facility] 216 mg/dL High 85-125 [facility] Gl[facility] mass conc 109 mg/dL Normal 85-125 [facility] Glucose mass conc 56 mg/dL Low 85-125 [facility] HP.IMS.ADMon 05-11-2018 [facility] Patient Name: [facility]ATTI[address] [facility] [address] [place] : [address] [address] Unit Number: [id number] Number: [id number] Patient Status: ADM INoAttending Doctor: Anderson Rubio MDService Date: 05/11/18 1526History of Present IllnessSource of Information PatientChief Complaint/Present Illness:Patient transferred from [facility] for chest pain evaluationHistory of Present IllnessPatient is a 53-year-old female end-stage renal disease on hemodialysis, nephroticsyndrome, diabetes mellitus was transferred from [facility]. [facility] with [facility]. Patient states it started yesterday and was onand off and this morning it progress it to the point it was like 10 over 10 as though adifferent sitting on her chest associated with some shortness of breath, nausea she didhave increases 1 time no diaphoresis. Patient evaluated in the ER at [facility].Troponins negative. Patient was transferred to [facility] for further cardiacevaluation. Currently patient denies any chest pain[facility]. Patient [...] as Reported by BHANU COLUNGA on 09/29/17 1614Last Action: Reviewed on 05/11/18 1345 by Ramón RUBIO* (Coral 81 MG Tab*) 81 MG TABLET. 81 MG PO QDAYWM, Ref 0 (Reported)TO CONTINUE FOR PROCEDURE PER 'S INSTRUCTIONSEntered as Reported by BHANU COLUNGA on 09/29/171611Las Action: Reviewed on 05/11/181344 by Kam RUBIO Calcium* (Lipitor 40MG Tab*) 40 MG TABLET 40 MG PO QHS, Ref 0 (Reported)Entered as Reported by BHANU COLUNGA on 09/29/171611Last Action: Reviewed on 05/11/181344 by ANDERSON RUBIOCalcium Acetate* (Phoslo cap*) 667 MG CAPSULE 1,334 MG PO TIDWM, Ref 0 (Reported)Entered as Reported by KARTHIKEYAN ANDERS on 03/19/181403Last Action: Reviewed on 05/11/181344 by ANDERSON RUBIOcloNIDine HCL* (Catapres 0.2MG Tab*) 0.2 MG TABLET 0.3 MG PO BID, Ref 0 (Reported)Entered as Reported by BHANU COLUNGA on 09/29/171613Last Action: Reviewed on 05/11/181344 by ANDERSON RUBIOFolimckenzie Acid/Vitamin B Comp W-C* (Nephrocaps Softgel*) 1 MG CAPSULE 1 CAP PO QDAY, Ref 0(Reported)Entered as Reported by KARTHIKEYAN ANDERS on 03/19/181403Last Action: Reviewed on 05/11/181344 by JOANNELATHAInsulin Aspart (Novolog) 100 UNIT/1 ML VIAL 8 UNITS TIDAC, Ref 0 (Reported)Entered as Reported by BHANU COLUNGA on 09/29/171612Last Action: Reviewed on 05/11/181344 by YAMILETH RUBIOHAInsulin Degludec (Tresiba Flextouch U-100) 100 UNIT/1 ML INSULN.PEN 40 UNIT SQ QHS, Ref0 (Reported)Entered as Reported by KARTHIKEYAN ANDERS on 03/19/181404Last Action: Reviewed on 05/11/181344 by MARIEL RUBIOevothyroxi ne Sodium* (Synthroid 0.112MG Tab*) 112 MCG TABLET 0.112 MG PO QDAYAC, Ref 0(Reported)Entered as Reported by BHANU COLUNGA on 09/29/17 1611Last Action: Reviewed on 05/11/18 1345 by Marques RUBIOetoprolol TARTRATE* (Lopressor 50MG Tab*) 50 MG TABLET 50 MG PO BID, Ref 0 (Reported)Entered as Reported by BHANU COLUNGA on 09/29/17 1610Last Action: Reviewed on 05/11/18 1345 by Caridad RUBIO of SystemsROS: OtherConstitutional - [Denies any fever, [...] anxiety, depression.]Physical ExamVital SignsVital Signs (Last)ResultDate TimePulse Vd1325/07 1250B/P129/6809/07 1250O2 DeliveryROOM AIR09 0804Ggnw58.109/07 8271Wkdcg67465/07 2542Hoxc0776/07 1250Physical Exam SummaryOn examinationHEENT pupils are equal and reactive to light and accommodation. No pallor. No icterusNeck is suppleCardiovascular system S1-S2 normal. Systolic murmur heardChest clear bilateralAbdomen soft . Nontender. Bowel sounds present.Extremities trace edema bilateral lower extremitiesPatient is alert awake oriented to time place personNo distressAdditionalLaborato ry TestsTestResultDate TimeChemistryWhole Bld Glucose (85 - 125 MG/DL)42832/07 1423[facility] from [facility] in the [facility] foundationWBC 6 hemoglobin 10 hematocrit 29.4 platelets 233Sodium 141 potassium 4.7 chloride 102 bicarbonate 28 BUN 49 creatinine 5.3 AST 17 alkalinephosphatase 112 calcium 9.2 albumin 3.6 BNP 391 EKG single lead shows normal sinus rhythmConclusion / PlanConclusion1. Chest painAssessment and planChest pain rule out [place]. Add patient will be admitted as observation. [...] TimeAnderson Rubio MD Verified/Reviewed by 05/11/18 1533 [facility] [place] PROG.NEPHon 05-11-2018 Protein mass conc [facility] Patient Name: SANDY BHATTI [id number] [facility] Date of : [address] [address] Unit Number: [id number] Number: [id number] Note-Nephrology Patient Status: ADM INoAttending Doctor: Anderson Rubio MDService Date: 05/11/181705Progress Note-Nephrology([facility])Subj ectiveSubjective:[id number] claimerThis dictation was created using voice recognition software.Phonetic and/or minor grammatical errors may exist.eSign Date and Arthur Murrieta MD Verified/Reviewed by 05/11/18 1706 [facility] TROPONIN Ion 05-11-2018 Troponin I.cardiac mass conc 0.051 ng/mL High 0.000-0.045 [facility] Comment on above: Order Comment: Campu s: MPatient transfused or in the past 3 months? NOIs This Patient Going To Surgery? YSurgery Date: 10/04/17 Performed By: #### L 500.13246, L550.41733 ####[facility] [id number] [address]# [phone] CBCon 05-01-2018 Erythrocyte distribution width Auto Ratio (RBC) 12.7 % Normal 11-14.5 [facility] Comment on above: Order Comment: Campu s: M Performed By: #### L 200.35028 ####[facility] [id number] [place], [place] [address]Nd# [phone] Hematocrit Auto Volume Fraction (Bld) 32.0 % Low 35.0-47.0 [facility] Comment on above: Order Comment: Campu s: M Performed By: #### L 200.41315 ####[facility] [id number] [place], [place] [address]Ca# [phone] Hemoglobin mass conc (Bld) 10.5 g/dL Low 11.5-15.5 [facility] Comment on above: Order Comment: Campu s: M Performed By: #### L 200.28227 ####[facility] [id number] [place] [address]Hf# [phone] MCHC Auto mass conc (RBC) 32.8 g/dL Normal 32.0-36.0 [facility] Comment on above: Order Comment: Campu s: M Performed By: #### L 200.99255 ####[facility] [id number] [place], [place] [address]Tn# [phone] MCV Auto Entitic volume (RBC) 90.7 fL Normal 80.0-99.0 [facility] Comment on above: Order Comment: Campu s: M Performed By: #### L 200.70996 ####[facility] [id number] [place] [address]Qt# [phone] Nucleated RBC/100 WBC Ratio (Bld) 0.0 % Normal Less than 1 [facility] Comment on above: Order Comment: Campu s: M Performed By: #### L 200.17972 ####[facility] [id number] [place], [place] [address]Es# [phone] Platelet mean volume Auto Entitic volume (Bld) 9.4 fL Normal 9.4-12.4 [facility] Comment on above: Order Comment: Campu s: M Performed By: #### L 200.79578 ####[facility] [id number] [place], [place] [address]Ni# [phone] Platelets Auto #/vol (Bld) 202 K/CU MM Normal 150-450 [facility] Comment on above: Order Comment: Campu s: M Performed By: #### L 200.40290 ####[facility] [id number] [place], [place] [address]Sl# [phone] RBC Auto #/vol (Bld) 3.53 M/CU MM Low 3.90-5.30 [facility] Comment on above: Order Comment: Campu s: M Performed By: #### L 200.12069 ####[facility] [id number] [place], [place] [address]Mj# [phone] WBC Auto #/vol (Bld) 6.6 K/CU MM Normal 4.5-11.0 [facility] Comment on above: Order Comment: Campu s: M Performed By: #### L 200.41443 ####[facility] [id number] [place], [place] [address]Qw# [phone] GFR ESTon 05-01-2018 IF AMER 13 ML/MIN Normal [facility] Comment on above: Order Comment: Campu s: MPatient transfused or in the past 3 months? NOIs This Patient Going To Surgery? YSurgery Date: 10/04/17 Performed By: #### L 500.82588, L500.92128 ####[facility] [id number] [place], [place] [address]Za# [phone] IF non-AFR AMER 11 ML/MIN Normal [facility] Comment on above: Order Comment: Campu s: MPatient transfused or in the past 3 months? NOIs This Patient Going To Surgery? YSurgery Date: 10/04/17 Performed By: #### L 500.66538, L500.91178 ####[facility] [id number] [place], [place] [address]Vp# [phone] GLUCOSE METERon 05-01-2018 Glucose mass conc 84 mg/dL Low 85-125 [facility] [place] ORon 05-01-2018 OPERATIVE REPORT Normal [facility] OR DATE OF SERVICE: 05/01/2018PREOPERATIVE DIAGNOSIS: [...] an antegrade fashion. Exchanged out for a 4-Spanish sheathover a guidewire which was fashioned down [...] provide hemostasis.The patient tolerated the procedure well. [facility] PATIENT NAME: SANDY BHATTI Lizeth White MEDICAL REC #: [id number], [place] [address] DATE:DISCHARGE DATE:OPERATIVE REPORT ATTENDING PHY: Héctor Herrera MD J ritesh Herrera MDJP/[id number]: 05/01/2018 15:31DT: 05/01/2018 16:26SSI File#: [id number] #: [id number] - This document may contain phonetic, minor grammatical errors, or errorsdue to voice quality.Verified/Reviewed by05/03/18 0806 [place] [facility] PATIENT NAME: SANDY BHATTI [address] [facility] [facility] MEDICAL REC #: [id number], [place] [address] DATE:DISCHARGE DATE:OPERATIVE REPORT ATTENDING PHY: Héctor Herrera MD Normal [facility] RENALon 05-01-2018 Albumin mass conc 3.1 g/dL Low 3.2-5.0 [facility] Comment on above: Order Comment: Campu s: M Performed By: #### L 500.82940, L500.57060 ####[facility] [id number] [place], [place] [address]Yo# [phone] Anion gap 3 molar conc 10 mmol/L Normal 5-16 [facility] Comment on above: Order Comment: Campu s: M Performed By: #### L 500.16946, L500.19424 ####[facility] MIGSMGZGHS9284 [place], [place] [address]Ed# [phone] Calcium mass conc 9.3 mg/dL Normal 8.5-10.1 [facility] Comment on above: Order Comment: Campu s: M Performed By: #### L 500.76530, L500.93655 ####[facility] GBLYZKCZTV8332 [place], [place] [address]Cq# [phone] Chloride molar conc 101 mmol/L Normal 98-107 [facility] Comment on above: Order Comment: Campu s: M Performed By: #### L 500.84424, L500.55788 ####[facility] SXBYRADYOW9389 [place], [place] [address]Yz# [phone] CO2 molar conc 27 mmol/L Normal 21-32 [facility] Comment on above: Order Comment: Campu s: M Performed By: #### L 500.48305, L500.77700 ####[facility] UGPMCQYBGL4240 [place], [place] [address]We# [phone] Creatinine mass conc 4.360 mg/dL High 0.510-0.950 [facility] [place] Comment on above: Order Comment: Campu s: M Result Comment: Bea ents receiving either N-Acetylcysteine (NAC) orMetamizole prior to venipuncture, may have falsely depressedresults. Performed By: #### L 500.09557, L500.30469 ####[facility] [id number] [place], [place] [address]Wb# [phone] Glucose mass conc 155 mg/dL High 70-100 [facility] Comment on above: Order Comment: Campu s: M Result Comment: 70-1 00- Normal Fasting; 100-125 Impaired Fasting; greaterthan 126 on more than one result- Diabetes. ADA guidelines.Results may be falsely elevated after the administration ofSulfapyridine.Results may be falsely depressed after the administration ofSulfasalazine. Performed By: #### L 500.75918, L500.17223 ####[facility] [id number] [place], [place] [address]Au# [phone] Phosphate mass conc 5.1 mg/dL High 2.5-4.9 [facility] Comment on above: Order Comment: Campu s: M Performed By: #### L 500.73398, L500.81795 ####[facility] [id number] [place], [place] [address]Ot# [phone] Potassium molar conc 5.2 mmol/L High 3.5-5.1 [facility] Comment on above: Order Comment: Campu s: M Performed By: #### L 500.35004, L500.68422 ####[address] [address]Ea# [phone] Sodium molar conc 138 mmol/L Normal 136-145 [facility] Comment on above: Order Comment: Campu s: M Performed By: #### L 500.22237, L500.08778 ####[facility] [id number] [place] [address]Rz# [phone] Urea nitrogen mass conc 42 mg/dL High 7-26 [facility] Comment on above: Order Comment: Campu s: M Performed By: #### L 500.62751, L500.63508 ####[facility] [id number] [place], [place] [address]Ty# [phone] Urea nitrogen/Creatinine mass ratio 10 mg/mg Low 15-24 [facility] Comment on above: Order Comment: Campu s: M Performed By: #### L 500.12277, L500.01054 ####[facility] [id number] [place], [place] [address]Yy# [phone] CBCon 03-20-2018 Erythrocyte distribution width Auto Ratio (RBC) 12.8 % Normal 11-14.5 [facility] Comment on above: Order Comment: Campu s: M Performed By: #### L 200.43005 ####[facility] [id number] [place] [address]Em# [phone] Hematocrit Auto Volume Fraction (Bld) 33.4 % Low 35.0-47.0 [facility] Comment on above: Order Comment: Campu s: M Performed By: #### L 200.66095 ####[facility] [id number] [place] [address]Qa# [phone] Hemoglobin mass conc (Bld) 10.9 g/dL Low 11.5-15.5 [facility] Comment on above: Order Comment: Campu s: M Performed By: #### L 200.62554 ####[facility] [id number] [place] [address]Ja# [phone] MCHC Auto mass conc (RBC) 32.6 g/dL Normal 32.0-36.0 [facility] Comment on above: Order Comment: Campu s: M Performed By: #### L 200.49884 ####[address] [address]Uz# [phone] MCV Auto Entitic volume (RBC) 89.8 fL Normal 80.0-99.0 [facility] Comment on above: Order Comment: Campu s: M Performed By: #### L 200.41328 ####[facility] [id number] [place] [address]Jj# [phone] Nucleated RBC/100 WBC Ratio (Bld) 0.0 % Normal Less than 1 [facility] Comment on above: Order Comment: Campu s: M Performed By: #### L 200.98925 ####[facility] OBLQCEGIMN[address] [place] [address]Ii# [phone] Platelet mean volume Auto Entitic volume (Bld) 9.6 fL Normal 9.4-12.4 [facility] Comment on above: Order Comment: Campu s: M Performed By: #### L 200.69944 ####[facility] [id number] [place] [address]Zg# [phone] Platelets Auto #/vol (Bld) 225 K/CU MM Normal 150-450 [facility] Comment on above: Order Comment: Campu s: M Performed By: #### L 200.28901 ####[facility] [id number] [place], [place] [address]Nh# [phone] RBC Auto #/vol (Bld) 3.72 M/CU MM Low 3.90-5.30 [facility] Comment on above: Order Comment: Campu s: M Performed By: #### L 200.59302 ####[facility] [id number] [place] [address]Co# [phone] WBC Auto #/vol (Bld) 8.7 K/CU MM Normal 4.5-11.0 [facility] Comment on above: Order Comment: Campu s: M Performed By: #### L 200.67249 ####[facility] [id number] [place], [place] [address]Dd# [phone] GFR ESTon 03-20-2018 IF AMER 15 ML/MIN [facility] Comment on above: Order Comment: Campu s: M Performed By: #### L 500.60956, L500.92264 ####[facility] [id number] [place], [place] [address]Sx# [phone] IF non-AFR AMER 12 ML/MIN [facility] Comment on above: Order Comment: Campu s: M Performed By: #### L 500.82377, L500.16597 ####[facility] [id number] [place] [address]Wo# [phone] GLUCOSE METERon 03-20-2018 Glucose mass conc 193 mg/dL High 85-125 [facility] ORon 03-20-2018 OPERATIVE REPORT Normal [facility] [place] DATE OF SERVICE: 03/20/2018PREOPERATIVE DIAGNOSIS: 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 Ultrasound guided antegrade access to the left radial artery.2. Left upper extremity arteriogram with fistulogram.3. Angioplasty of left radial artery with a 2.5 mm x 120 mm Appleton balloon x2.4. Angioplasty of the left radial artery with a 3 mm x 120 mm Appleton balloon x2.5. Angioplasty of mid-left radial artery with a 3 mm x 2 cm Appleton balloon and 3 mmx 4 cm Akil balloon.6. Proximal anastomosis angioplasty of radiocephalic arteriovenous fistula with a 4mm x 6 cm Appleton balloon x2.COMPLICATIONS: None.ANESTHESIA: IV sedation, monitored care [...] single-wire micropuncture technique, ultrasound-guided. Exchanged outfor a 4-Spanish sheath over a Glidewire.Angiogram of the left upper extremity revealed the anastomosis of the radial artery,quite stenosed throughout, long segmental. Systemically heparinized the patient.Exchanged out for a 0.014 Journey wire. I was able to go down the radial artery,past the anastomosis and retrograde up the arteriovenous fistula outflow tract.After 5 minutes, we angioplastied the radial artery with a 2.5 x 120 Appleton balloonto 12 atmospheres, 1-minute inflation x2, upsized to a 3 x 12 cm. [facility] PATIENT NAME: SANDY BHATTI [id number] [facility] [address] White MEDICAL REC #: [id number], [place] [address] DATE:DISCHARGE DATE:OPERATIVE REPORT ATTENDING PHY: Héctor Herrera [...] the recovery room in stable condition. CIPRIANO Luna/[id number]: 03/20/2018 15:24DT: 03/20/2018 17:46SSI File#: [id number] #: [id number]/Reviewed by03/21/18 0734 PREJE [facility] PATIENT NAME: SANDY BHATTI320 [facility] [address] White MEDICAL REC #: [id number], [place] [address] DATE:DISCHARGE DATE:OPERATIVE REPORT ATTENDING PHY: Héctor Herrera [facility] Albumin mass conc 3.1 g/dL Low 3.2-5.0 [facility] Comment on above: Order Comment: Nenita s: M Performed By: #### L 500.45907, L500.14320 ####[facility] [id number] [place], [place] [address]Mn# [phone] Anion gap 3 molar conc 10 mmol/L Normal 5-16 [facility] Comment [facility] above: Order Comment: Campu s: M Performed By: #### L 500.02687, L500.99425 ####[facility] [id number] [place], [place] [address]Nk# [phone] Calcium mass conc 8.4 mg/dL Low 8.5-10.1 [facility] Comment on above: Order Comment: Campu s: M Performed By: #### L 500.62311, L500.84785 ####[address] [address]Ft# [phone] Chloride molar conc 102 mmol/L Normal 98-107 [facility] Comment on above: Order Comment: Campu s: M Performed By: #### L 500.86419, L500.09780 ####[facility] [id number] [place] [address]Wt# [phone] CO2 molar conc 27 mmol/L Normal 21-32 [facility] [place] Comment on above: Order Comment: Campu s: M Performed By: #### L 500.69550, L500.75030 ####[facility] [id number] [place] [address]Jb# [phone] Creatinine mass conc 3.840 mg/dL High 0.510-0.950 [facility] [place] Comment on above: Order Comment: Campu s: M Result Comment: Bea ents receiving either N-Acetylcysteine (NAC) orMetamizole prior to venipuncture, may have falsely depressedresults. Performed By: #### L 500.10239, L500.23566 ####[facility] [id number] [place] [address]Qy# [phone] Glucose mass conc 252 mg/dL High 70-100 [facility] Comment on above: Order Comment: Campu s: M Result Comment: 70-1 00- Normal Fasting; 100-125 Impaired Fasting; greaterthan 126 on more than one result- Diabetes. ADA guidelines.Results may be falsely elevated after the administration ofSulfapyridine.Results may be falsely depressed after the administration ofSulfasalazine. Performed By: #### L 500.00131, L500.37628 ####[facility] [id number] [place], [place] [address]Vi# [phone] Phosphate mass conc 4.7 mg/dL Normal 2.5-4.9 [facility] [place] Comment on above: Order Comment: Campu s: M Performed By: #### L 500.40315, L500.89580 ####[facility] OYRXLRPWQX2094 [place], [place] [address]Cd# [phone] Potassium molar conc 4.7 mmol/L Normal 3.5-5.1 [facility] [place] Comment on above: Order Comment: Campu s: M Performed By: #### L 500.27462, L500.86598 ####[facility] [id number] [place], [place] [address]Vr# [phone] Sodium molar conc 139 mmol/L Normal 136-145 [facility] [place] Comment on above: Order Comment: Campu s: M Performed By: #### L 500.60871, L500.36492 ####[facility] [id number] [place], [place] [address]Gk# [phone] Urea nitrogen mass conc 36 mg/dL High 7-26 [facility] Comment on above: Order Comment: Campu s: M Performed By: #### L 500.52385, L500.96754 ####[facility] [id number] [place], [place] [address]Th# [phone] Urea nitrogen/Creatinine mass ratio 9 mg/mg Low 15-24 [facility] Comment on above: Order Comment: Campu s: M Performed By: #### L 500.96732, L500.81606 ####[facility] [id number] [place], [place] [address]Ml# [phone] GLUCOSE METERon 02-16-2018 Glucose mass conc 210 mg/dL High 85-125 [facility] Glucose mass conc 330 mg/dL High 85-125 [facility] Rambo Foster 02-16-2018 OT Assessment Report Normal [facility] JONATAN Occupational TherapyInpatient EvaluationMedical Diagnosis: 1. Chronic kidney [...] have been following her over the lastyearat [place] office, came to the office today with significant edema andanasarca,weakness and tiredness, cannot function. We have been preparing her fordialysistreatment. We had AV fistula created by Dr. Herrera with [facility], has notmaturedyet, and after working on her to get on the transplant list [facility] yet to be [facility]. In the office she wasweak,tired, cannot stand. She gained a lot of weight and cannot function at home andwe [facility] PATIENT NAME: SANDY BHATTI K[address] [facility] [address] [place] MEDICAL REC #: [id number], [place] [address] DATE: 02/13/18ERVICE DATE: 02/16/18Occupational Therapy Assessment ATTENDING HANS: Hao Nunez MDfelt she was uremic, to require dialysis treatment.Date [...] ofcomodeMarital Status: MSocial History:Children: 1[facility]Employment Status: disabilityRecreational Activities/Hobbies: hikingOBJECTIVE/OCCUPATION AL PERFORMANCEActivities of Daily LivingCurrent Status Previous StatusADLsFeeding Independent -Grooming Independent -Bathing-UE Independent -Bathing-LE Independent -Dressing-UE Independent -Dressing-LE Independent -Toileting Independent - *[facility] PATIENT NAME: SANDY BHATTI [facility] [address] [facility] MEDICAL REC #: [id number], [place] [address] DATE: 02/13/18ERVICE DATE: 02/16/18Occupational Therapy Assessment ATTENDING PHY: Hao Nunez [facility] Daily Activities:Putting On/Taking Off Lower Body Clothing: [...] edema- Minimal.Location:Lower Extremity Function: grossly WFLVision: glasses [facility] PATIENT NAME: SANDY BHATTI [facility] [address] MEDICAL REC #: [id number], [place] [address] DATE: 02/13/18ERVICE DATE: 02/16/18Occupational Therapy Assessment ATTENDING PHY: Hao Nunez MDCognition: Within functional limits.Perceptual Skills: [...] Problem List and Goals:Functional Impairment: Self CareModifier: [id number] (0% impaired, limited or restricted)Goal:Goal Modifier: [id number] (0% impaired, limited or restricted)Discharge Status for Self Care: ResolvedFunctional Impairment Discharge Modifier: [id number]-ME (0% impaired, limited orrestricted)Treatment Goals: Not applicable.PLANTreatment Frequency, Duration and Interventions: Occupational Therapy services [facility] PATIENT NAME: SANDY BHATTI Dr. White MEDICAL REC #: [id number], [place] [address] DATE: 02/13/18ERVICE DATE: 02/16/18Occupational Therapy Assessment ATTENDING [...] please contact the AcuteTherapy Department at extension [phone] WILL BE TRANSFERRED TO THE (CHOICE OF ACUTE OR REHAB) OCCUPATIONALTHERAPISTComm unication to Nursing:Toilet Transfers: MOD ILocation of Patient at End of Therapy Session: In chair, call light within reachServices:Total Billed: 0 minutes (Timed: 0, Untimed: 0)0.00 Untimed: [69589] OT-EVALUATION LOW COMPLEXITY0.00 Untimed: [] OT Evaluation ORDER0.00 Untimed: [G8987] OT-Self Care-CH0.00 Untimed: [G8988] VI-Axir-Iqiq Care-CH0.00 Untimed: [G8989] OT-DC-Self Care-CHSigned by: ELLA Willis 02/16/2018 15:03:49 [facility] PATIENT NAME: SANDY BHATTI Dr. White MEDICAL REC #: [id number], [place] [address] DATE: 02/13/18ERVICE DATE: 02/16/18Occupational Therapy Assessment ATTENDING PHY: Hao Nunez MD [facility] Physical TherapyInpa tient EvaluationMedical Diagnosis: CHRONIC KIDNEY [...] been following her over the lastyear at [facility], came to the office today with significant edema andanasarca, weakness and tiredness, cannot function. We have been preparing herfor dialysis treatment. We had AV fistula created by Dr. Herrera withIntervention, has not matured yet, and after working on her to get on thetransplant list to combine kidney[facility]pancreas [facility] at [facility] yet to bedone. In the office she was weak, tired, cannot stand. She gained a lot ofweight and cannot function at home and we felt she was uremic, to requiredialysis treatment.OBTAINED FROM MEDICAL CHARTINGDate of Admission: 02/13/2018 2:26:00 PMRehabilitation Precautions/Restrictions:s tandard precautions, fall risk [facility] PATIENT NAME: SANDY BHATTI [facility] Dr. White MEDICAL REC #: [id number], [place] [address] DATE: 02/13/18ERVICE DATE: 02/16/18Physical Therapy Assessment Report [...] to come stay with her initially.Prior Device Use:OfbgfcyaywxCG055. Prior DeviceNone of Above YesPatient/Caregiver Goals: Patient's [...] toilet seatSocial History: Marital Status: MChildren: 1Reside: [place]ployment Status: disabilityRecreational Activities/Hobbies: facebook, gamesOBJECTIVECognitive ScreenResponsiveness: Alert.Orientation: Oriented to person, place, time, and situation.Following Commands: Patient is able to follow 3-step commands.Range of MotionUpper Extremity: Grossly within functional limitsLower Extremity: Grossly within functional limitsStrengthUpper Extremity: Grossly within functional limitsLower Extremity: Grossly within functional limitsTone/Spasticity: No relevant impairments.Sensation: Grossly intact.Balance: Independent and within functional limits.Therapeutic/Functio nal Activities: [facility] PATIENT NAME: SANDY BHATTI [facility] Dr. White [facility] REC #: [id number], [place] [address] DATE: 02/13/18ERVICE DATE: 02/16/18Physical Therapy Assessment Report ATTENDING PHY: Hao Nunez MDBed Mobility: Not assessed.Transfers: Patient transferred sit to/from [...] Not applicableMotivation/Commi tment to Therapy: Not applicable. [facility] PATIENT NAME: SANDY BHATTI K1320 [facility] Dr. White [facility] REC #: [id number], [place] [address] DATE: 02/13/18ERVICE DATE: 02/16/18Physical Therapy Assessment Report ATTENDING PHY: Hao Nunez MDResponse to Evaluation: Pt demonstrates baseline abilities that are safe andstable with no need for skilled PT intervention. Pt educated of plan to D/C PTwith good pt verbal agreement and understanding. Pt educated to notifyphysician/nursing if changes occur with functional mobility. AM-PAC 24 shows ptsafe for homegoingActivity/Particip ation Problem List and Goals:Functional Impairment: Mobility: Walking and Moving Around.Modifier: [id number]-MI (0% impaired, limited or restricted)Goal: Pt to ambulate independent 100' no assistive device to ensure safety upondischargeGoal Modifier: L4008-LJ (0% impaired, limited or restricted)Discharge Status for Mobility: Walking and Moving Around: ResolvedFunctional Impairment Discharge Modifier: [id number]-WA (0% impaired, limited orrestricted)Pt amb independent 200' [...] please contact the AcuteTherapy Department at extension [phone] of Patient at End of Therapy Session: In chair, call light within reachServices:Total Billed: 0 minutes (Timed: 0, Untimed: 0)0.00 Untimed: [94369] PT-EVALUATION LOW COMPLEXITY0.00 Untimed: [] PT Evaluation ORDER [facility] PATIENT NAME: MAGY,SANDY K132Jonathan White MEDICAL REC #: [id number], [place] [address] DATE: 02/13/18ERVICE DATE: 02/16/18Physical Therapy Assessment Report ATTENDING PHY: Hao Nunez MD0.00 Untimed: [G8978] PT-Mobility: Walking and Moving Around-CH0.00 Untimed: [G8979] SA-Wjof-Dtxemgem: Walking and Moving Around-CH0.00 Untimed: [G8980] PT-DC:Mobility: Walking and Moving Around-CHSigned by: Juana Tony, 02/16/2018 15:04:39 [facility] PATIENT NAME: MAGYBERTRAND MINORA [id number] Lizeth White MEDICAL REC #: [id number], [place] [address] DATE: 02/13/18ERVICE DATE: 02/16/18Physical Therapy Assessment Report ATTENDING PHY: Hao Nunez MD [facility] 02-16-2018 Protein mass conc [facility] PTPN Physical TherapyInpa tient Missed Visit NoteAttempted to visit patient for therapy, but was unable for the followingreasons: Patient having or awaiting dialysis.Return Plan: Will return as soon as possible for another attempt.If there are any questions regarding this service, please contact the AcuteTherapy Department at extension [phone] by: Juana Tony, 02/16/2018 10:40:36 [facility] PATIENT NAME: SANDY BHATTI K1320 [facility] Dr. White MEDICAL REC #: [id number], [place] [address] DATE: 02/13/18ERVICE DATE: 02/16/18Physical Therapy Progress Note ATTENDING PHY: Hao Nunez MD [facility] BMPon 02-15-2018 Anion gap 3 molar conc 11 mmol/L Normal 5-16 [facility] Comment on above: Order Comment: Campu s: M Performed By: #### L 500.23702, L500.23621 ####[facility] [id number] [place], [place] [address]Av# [phone] Calcium mass conc 7.9 mg/dL Low 8.5-10.1 [facility] Comment on above: Order Comment: Campu s: M Performed By: #### L 500.31272, L500.09945 ####[facility] [id number] [place], [place] [address]Sz# [phone] Chloride molar conc 106 mmol/L Normal 98-107 [facility] Comment on above: Order Comment: Calebu s: M Performed By: #### L 500.88127, L500.31191 ####[facility] [id number] [place], [place] [address]Tg# [phone] CO2 molar conc 23 mmol/L Normal 21-32 [facility] Comment on above: Order Comment: Campu s: M Performed By: #### L 500.56147, L5.48421 ####[facility] [id number] [place], [place] [address]Tz# [phone] Creatinine mass conc 3.870 mg/dL High 0.510-0.950 [facility] Comment on above: Order Comment: Calebu s: M Result Comment: Bea ents receiving either N-Acetylcysteine (NAC) orMetamizole prior to venipuncture, may have falsely depressedresults. Performed By: #### L 500.47329, L5.95424 ####[facility] [id number] [place], [place] [address]Pw# [phone] Glucose mass conc 232 mg/dL High 70-100 [facility] Comment on above: Order Comment: Calebu s: M Result Comment: 70-1 00- Normal Fasting; 100-125 Impaired Fasting; greaterthan 126 on more than one result- Diabetes. ADA guidelines.Results may be falsely elevated after the administration ofSulfapyridine.Results may be falsely depressed after the administration ofSulfasalazine. Performed By: #### L 500.45773, L500.99090 ####[facility] [id number] [place], [place] [address]Kz# [phone] Potassium molar conc 4.3 mmol/L Normal 3.5-5.1 [facility] Comment on above: Order Comment: Calebu s: M Performed By: #### L 500.44291, L500.36713 ####[facility] [id number] [place], [place] [address]Tj# [phone] Sodium molar conc 140 mmol/L Normal 136-145 [facility] Comment on above: Order Comment: Campu s: M Performed By: #### L 500.17915, L500.61052 ####[facility] [id number] [place] [address]Zx# [phone] Urea nitrogen mass conc 31 mg/dL High 7-26 [facility] Comment [facility] above: Order Comment: Campu s: M Performed By: #### L 500.71281, L500.20005 ####[facility] [id number] [place] [address]Tu# [phone] Urea nitrogen/Creatinine mass ratio 8 mg/mg Low 15-24 [facility] Comment on above: Order Comment: Campu s: M Performed By: #### L 500.47597, L500.47167 ####[address] [address]Jj# [phone] CBC W/DIFFon 02-15-2018 BASO ABS 0.00 K/CU MM Normal 0-0.2 [facility] Comment on above: Order Comment: Campu s: M Performed By: #### L 200.05211 ####[facility] [id number] [place] [address]Yx# [phone] Basophils/100 WBC Auto (Bld) 0.9 % Normal 0-2 [facility] Comment on above: Order Comment: Campu s: M Performed By: #### L 200.65229 ####[facility] [id number] [place] [address]Zu# [phone] EOS ABS 0.10 K/CU MM Normal 0-0.5 [facility] Comment on above: Order Comment: Campu s: M Performed By: #### L 200.33368 ####[facility] [id number] [place] [address]Dq# [phone] Eosinophils/100 WBC Auto (Bld) 2.1 % Normal 0-5 [facility] Comment on above: Order Comment: Campu s: M Performed By: #### L 200.62028 ####[facility] [id number] [place], [place] [address]Ar# [phone] Erythrocyte distribution width Auto Ratio (RBC) 13.1 % Normal 11-14.5 [facility] Comment on above: Order Comment: Campu s: M Performed By: #### L 200.03413 ####[facility] [id number] [place], [place] [address]Ph# [phone] Hematocrit Auto Volume Fraction (Bld) 30.1 % Low 35.0-47.0 [facility] Comment on above: Order Comment: Campu s: M Performed By: #### L 200.24556 ####[place] [address]33[address]Ph# [phone] Hemoglobin mass conc (Bld) 10.2 g/dL Low 11.5-15.5 [facility] Comment on above: Order Comment: Campu s: M Performed By: #### L 200.83294 ####[facility] [id number] [place], [place] [address]Ph# [phone] IMMATR GRAN ABS 0.00 K/CU MM Normal Less than 2 [facility] Comment on above: Order Comment: Campu s: M Performed By: #### L 200.33665 ####[facility] [id number] [place], [place] [address]Ph# [phone] IMMATURE GRAN % 0.5 % Normal Less than 2 [facility] Comment on above: Order Comment: Campu s: M Performed By: #### L 200.74428 ####[facility] NVFTCXGZCJ212[address] [place], [place] [address]Ph# [phone] Lymphocytes Auto #/vol (Bld) 1.20 K/CU MM Normal 0.9-4.4 [facility] Comment on above: Order Comment: Campu s: M Performed By: #### L 200.51964 ####[facility] [id number] [place], [place] [address]Ph# [phone] Lymphocytes/100 WBC Auto (Bld) 27.9 % Normal 20-40 [facility] Comment on above: Order Comment: Campu s: M Performed By: #### L 200.30221 ####[facility] CEUJRNGSFG5763 [place] [address]Ph# [phone] MCHC Auto mass conc (RBC) 33.9 g/dL Normal 32.0-36.0 [facility] Comment on above: Order Comment: Campu s: M Performed By: #### L 200.07368 ####[facility] OIEUIYAQRI97[address] [place], [place] [address]Ph# [phone] MCV Auto Entitic volume (RBC) 85.3 fL Normal 80.0-99.0 [facility] Comment on above: Order Comment: Campu s: M Performed By: #### L 200.12527 ####[place] [address]33[address]Ph# [phone] MONO ABS 0.40 K/CU MM Normal 0.1-1.1 [facility] Comment on above: Order Comment: Campu s: M Performed By: #### L 200.91270 ####[facility] [id number] [place], [place] [address]Ph# [phone] Monocytes/100 WBC Auto (Bld) 8.8 % Normal 2-10 [facility] Comment on above: Order Comment: Campu s: M Performed By: #### L 200.55063 ####[facility] [id number] [place], [place] [address]Ph# [phone] NEUTROPHIL ABS 2.60 K/CU MM Normal 2.0-8.3 [facility] Comment on above: Order Comment: Campu s: M Performed By: #### L 200.53091 ####[facility] [id number] [place], [place] [address]Ph# [phone] Neutrophils/100 WBC Auto (Bld) 59.8 % Normal 45-75 [facility] Comment on above: Order Comment: Campu s: M Performed By: #### L 200.64949 ####[facility] [id number] [place], [place] [address]Qh# [phone] Nucleated RBC/100 WBC Ratio (Bld) 0.0 % Normal Less than 1 [facility] Comment on above: Order Comment: Campu s: M Performed By: #### L 200.88082 ####[address] [address]Ew# [phone] Platelet mean volume Auto Entitic volume (Bld) 9.4 fL Normal 9.4-12.4 [facility] Comment on above: Order Comment: Campu s: M Performed By: #### L 200.53076 ####[address] [address]Bj# [phone] Platelets Auto #/vol (Bld) 106 K/CU MM Low 150-450 [facility] Comment on above: Order Comment: Campu s: M Performed By: #### L 200.63486 ####[address] [address]Mz# [phone] RBC Auto #/vol (Bld) 3.53 M/CU MM Low 3.90-5.30 [facility] Comment on above: Order Comment: Campu s: M Performed By: #### L 200.58989 ####[address] [address]Qx# [phone] WBC Auto #/vol (Bld) 4.3 K/CU MM Low 4.5-11.0 [facility] Comment on above: Order Comment: Campu s: M Performed By: #### L 200.83659 ####[facility] [id number] [place] [address]Wv# [phone] GFR ESTon 02-15-2018 IF AMER 15 ML/MIN Normal [facility] Comment on above: Order Comment: Campu s: M Performed By: #### L 500.96672, L500.45186 ####[facility] [id number] [place], [place] [address]Tk# [phone] IF non-AFR AMER 12 ML/MIN Normal [facility] Comment on above: Order Comment: Nenita s: M Performed By: #### L 500.62539, L500.41950 ####[facility] [id number] [place], [place] [address]Pb# [phone] GLUCOSE METERon 02-15-2018 Glucose mass conc 198 mg/dL High 85-125 [facility] Glucose mass conc 137 mg/dL High 85-125 [facility] Glucose mass conc 281 mg/dL High 85-125 [facility] Victor Hugo 02-14-2018 FERR 164.5 NG/ML Normal 8.0-307.0 [facility] Comment on above: Order Comment: Nenita s: M Performed By: #### L 500.71088, L500.95965 ####[facility] [id number] [place], [place] [address]Nm# [phone] GLUCOSE METERon 02-14-2018 Glucose mass conc 144 mg/dL High 85-125 [facility] Glucose mass conc 124 mg/dL Normal 85-125 [facility] Glucose mass conc 115 mg/dL Normal 85-125 [facility] Glucose mass conc 255 mg/dL High 85-125 [facility] IRON PANELon 02-14-2018 Iron mass conc 99 ug/dL Normal 50-170 [facility] Comment on above: Order Comment: Nenita munoz: M Result Comment: Bea ents treated with metal-binding drugs (e.g.deferoxamine)may have depressed iron values, as chelated iron may notproperly react in the Siemens iron assay. Performed By: #### L 500.95621, L500.33019 ####[facility] [id number] [place], [place] [address]Oh# [phone] IRON SAT 34 % Normal 22-44 [facility] Comment on above: Order Comment: Nenita s: M Performed By: #### L 500.43267, L500.91513 ####[facility] [id number] [place], [place] [address]Hc# [phone] TIBC 294 UG/DL Normal 221-481 [facility] Comment on above: Order Comment: Nenita munoz: Chris Performed By: #### L 500.86290, L500.78964 ####[facility] [id number] [place], [place] [address]El# [phone] VLARon 02-14-2018 NON-INVASIVE ARTERIAL REPORT Normal [facility] [place] KAVYA VASCULAR MEDSTREAMIN G REPORT --------Patient: SANDY BHATTI [id number] Phy:MR: [id number] for Visit: ESRD,START DIALYSIS AND ANASARCADate of [...] 3.6 mm and outflow is 4 mm.CC:Hao Nunezreviated Final Report. Full Report is available via link to [employer] inMaginatics under [facility] Lab Image Viewer. [facility] PATIENT NAME: SANDY BHATTI320 [facility] [address]. White MEDICAL REC #: [id number], [place] [address] DATE: 02/13/18DISCHARGE DATE:NON-INVASIVE ARTERIAL REPORT ATTENDING PHY: Hao Nunez MDElectronically Signed by: Cole Thomson MD Esign Date: 02/15/18 Normal [facility] BMPon 02-13-2018 Anion gap 3 molar conc 11 mmol/L Normal 5-16 [facility] Comment on above: Order Comment: Campu s: M Performed By: #### L 500.44167, L500.66115 ####[facility] [id number] [place], [place] [address]Ws# [phone] Calcium mass conc 8.3 mg/dL Low 8.5-10.1 [facility] Comment on above: Order Comment: Campu s: M Performed By: #### L 500.33769, L500.98828 ####[facility] [id number] [place], [place] [address]Hf# [phone] Chloride molar conc 110 mmol/L High 98-107 [facility] Comment on above: Order Comment: Campu s: M Performed By: #### L 500.58039, L500.53741 ####[facility] [id number] [place], [place] [address]Zk# [phone] CO2 molar conc 21 mmol/L Normal 21-32 [facility] Comment on above: Order Comment: Campu s: M Performed By: #### L 500.09631, L500.55708 ####[facility] [id number] [place], [place] [address]Gn# [phone] Creatinine mass conc 4.600 mg/dL High 0.510-0.950 [facility] Comment on above: Order Comment: Campu s: M Result Comment: Bea ents receiving either N-Acetylcysteine (NAC) orMetamizole prior to venipuncture, may have falsely depressedresults. Performed By: #### L 500.56735, L500.79366 ####[facility] [id number] [place], [place] [address]Jk# [phone] Glucose mass conc 220 mg/dL High 70-100 [facility] Comment on above: Order Comment: Campu s: M Result Comment: 70-1 00- Normal Fasting; 100-125 Impaired Fasting; greaterthan 126 on more than one result- Diabetes. ADA guidelines.Results may be falsely elevated after the administration ofSulfapyridine.Results may be falsely depressed after the administration ofSulfasalazine. Performed By: #### L 500.28847, L500.01638 ####[facility] SIOWYMUAXI8612 [place], [place] [address]Tk# [phone] Potassium molar conc 5.0 mmol/L Normal 3.5-5.1 [facility] Comment on above: Order Comment: Campu s: M Performed By: #### L 500.71364, L500.12653 ####[facility] [id number] [place] [address]Fe# [phone] Sodium molar conc 142 mmol/L Normal 136-145 [facility] Comment on above: Order Comment: Campu s: M Performed By: #### L 500.55798, L500.74786 ####[facility] [id number] [place], [place] [address]Kz# [phone] Urea nitrogen mass conc 49 mg/dL High 7-26 [facility] Comment on above: Order Comment: Campu s: M Performed By: #### L 500.91761, L500.12211 ####[facility] [id number] [place], [place] [address]Ms# [phone] Urea nitrogen/Creatinine mass ratio 11 mg/mg Low 15-24 [facility] Comment on above: Order Comment: Campu s: M Performed By: #### L 500.59180, L500.10813 ####[facility] [id number] [place], [place] [address]Te# [phone] CBC W/DIFFon 02-13-2018 BASO ABS 0.10 K/CU MM Normal 0-0.2 [facility] Comment on above: Order Comment: Campu s: M Performed By: #### L 500.30843, L500.38294 ####[facility] [id number] [place], [place] [address]Ye# [phone] Basophils/100 WBC Auto (Bld) 0.7 % Normal 0-2 [facility] Comment on above: Order Comment: Campu s: M Performed By: #### L 500.79069, L500.75281 ####[address] [address]Jg# [phone] EOS ABS 0.10 K/CU MM Normal 0-0.5 [facility] Comment on above: Order Comment: Campu s: M Performed By: #### L 500.59304, L500.61113 ####[address] [address]Ac# [phone] Eosinophils/100 WBC Auto (Bld) 1.4 % Normal 0-5 [facility] Comment on above: Order Comment: Campu s: M Performed By: #### L 500.91666, L500.86188 ####[address] [address]Uj# [phone] Erythrocyte distribution width Auto Ratio (RBC) 13.4 % Normal 11-14.5 [facility] Comment on above: Order Comment: Campu s: M Performed By: #### L 500.56897, L500.85387 ####[address] [address]Tp# [phone] Hematocrit Auto Volume Fraction (Bld) 34.6 % Low 35.0-47.0 [facility] Comment on above: Order Comment: Campu s: M Performed By: #### L 500.86991, L500.73204 ####[address] [address]Dh# [phone] Hemoglobin mass conc (Bld) 11.1 g/dL Low 11.5-15.5 [facility] Comment on above: Order Comment: Campu s: M Performed By: #### L 500.28465, L500.39613 ####[place] [address]33[address]Ph# [phone] IMMATR GRAN ABS 0.00 K/CU MM Normal Less than 2 [facility] Comment on above: Order Comment: Campu s: M Performed By: #### L 500.57570, L500.99921 ####[place] [address]33[address]Ph# [phone] IMMATURE GRAN % 0.1 % Normal Less than 2 [facility] Comment on above: Order Comment: Campu s: M Performed By: #### L 500.53510, L500.25136 ####[place] [address]33[address]Ph# [phone] Lymphocytes Auto #/vol (Bld) 0.90 K/CU MM Normal 0.9-4.4 [facility] Comment on above: Order Comment: Campu s: M Performed By: #### L 500.57737, L500.25372 ####[place] [address]33[address]Ph# [phone] Lymphocytes/100 WBC Auto (Bld) 12.9 % Low 20-40 [facility] Comment on above: Order Comment: Campu s: M Performed By: #### L 500.05088, L500.47477 ####[address] [address]Gk# [phone] MCHC Auto mass conc (RBC) 32.1 g/dL Normal 32.0-36.0 [facility] Comment on above: Order Comment: Campu s: M Performed By: #### L 500.87637, L500.29085 ####[address] [address]Gr# [phone] MCV Auto Entitic volume (RBC) 87.2 fL Normal 80.0-99.0 [facility] Comment on above: Order Comment: Campu s: M Performed By: #### L 500.68805, L500.23962 ####[facility] [id number] [place], [place] [address]Zb# [phone] MONO ABS 0.50 K/CU MM Normal 0.1-1.1 [facility] Comment on above: Order Comment: Campu s: M Performed By: #### L 500.13448, L500.56791 ####[address] [address]Ff# [phone] Monocytes/100 WBC Auto (Bld) 7.2 % Normal 2-10 [facility] Comment on above: Order Comment: Campu s: M Performed By: #### L 500.51924, L500.86007 ####[address] [address]Cs# [phone] NEUTROPHIL ABS 5.50 K/CU MM Normal 2.0-8.3 [facility] Comment on above: Order Comment: Campu s: M Performed By: #### L 500.92812, L500.96176 ####[facility] [id number] [place] [address]Yt# [phone] Neutrophils/100 WBC Auto (Bld) 77.7 % High 45-75 [facility] Comment on above: Order Comment: Campu s: M Performed By: #### L 500.20899, L500.11628 ####[facility] QAORVQFDER765[address] [place] [address]Tc# [phone] Nucleated RBC/100 WBC Ratio (Bld) 0.6 % Normal Less than 1 [facility] Comment on above: Order Comment: Campu s: M Performed By: #### L 500.50813, L500.97961 ####[facility] [id number] [place] [address]Nf# [phone] Platelet mean volume Auto Entitic volume (Bld) 9.4 fL Normal 9.4-12.4 [facility] [place] Comment on above: Order Comment: Campu s: M Performed By: #### L 500.30916, L500.66378 ####[facility] ATFRMDOKIO8792 [place], [place] [address]Mq# [phone] Platelets Auto #/vol (Bld) 183 K/CU MM Normal 150-450 [facility] Comment on above: Order Comment: Campu s: M Performed By: #### L 500.60296, L500.34319 ####[facility] [id number] [place], [place] [address]Ko# [phone] RBC Auto #/vol (Bld) 3.97 M/CU MM Normal 3.90-5.30 [facility] [place] Comment on above: Order Comment: Campu s: M Performed By: #### L 500.03194, L500.27099 ####[facility] EXGYGNGAGJ2397 [place], [place] [address]Mo# [phone] WBC Auto #/vol (Bld) 7.1 K/CU MM Normal 4.5-11.0 [facility] [place] Comment on above: Order Comment: Campu s: M Performed By: #### L 500.57647, L500.58726 ####[facility] TDFHCSFOIR2171 [place], [place] [address]Lx# [phone] CRon 02-13-2018 CR DATE OF CONSULTATION : [...] Apparently, she was quite ill out in [place], eventually made her way toDr. Nunez's office, [...] with repeat maturation depending on thoseresults. CIPRIANO Luna/[id number]: 02/14/2018 17:31DT: 02/14/2018 18:10SSI File#: [id number] [facility] PATIENT NAME: SANDY BHATTI [id number] [facility] [address] MEDICAL REC #: [id number], [place] [address] DATE: 02/13/18DISCHARGE DATE:CONSULTATION REPORT ATTENDING DONNIEY: Hao Nunez #: [id number]/Reviewed by02/16/18 0648 PREJE [facility] PATIENT NAME: SANDY BHATTI [facility] MEDICAL REC #: [id number], [place] [address] DATE: 02/13/18DISCHARGE DATE:CONSULTATION REPORT ATTENDING PHY: Hao Nunez MD [facility] [place] DSon 02-13-2018 DS DATE OF ADMISSION: 02/13/2018DATE OF DISCHARGE: 02/16/2018REASON:1. End-stage renal disease.2. Hypertension.3. Nephrotic syndrome.4. Hypothyroidism.5. Insulin-dependent diabetes.6. Hyperlipidemia.CONDITION: Stable.DESTINATION: Home.FOLLOWUP: In [place] [facility] unit.PROCEDURE: Temporary dialysis catheter, dialysis treatment.DIET: 1800-calorie, ADA, 2-gram salt, 2-gram potassium and 1500 mL.CRIME SCENE INVESTIGATOR: Héctor Herrera, MDMEDICATIONS:1. Folvite daily.2. PhosLo 2 [...] the above complications, [place]. We know she has CKD stage 5, preparing her for dialysis. She has AVfistula created and intervened on it to be sure and ready. We admitted her from [facility]. Catheter inserted in our vascular lab. Start dialysis, adjust hermedications carefully. She lost more than 12 pounds fluid. She feels better,stronger and arrangement to go back to [place] for dialysis treatment and lateron, follow that channel of combined kidney, pancreas transplant. Hao Nunez MD [facility] PATIENT NAME: SANDY BHATTI [id number] [facility] MEDICAL REC #: [id number], [place] [address] DATE: 02/13/18DISCHARGE DATE: 02/16/18DISCHAR SUMMARY ATTENDING PHY: Hao Nunez MDJA/[id number]: 02/16/2018 12:31DT: 02/17/2018 14:38SSI File#: [id number] #: [id number]/Reviewed by02/20/18 0844 ASFJE [facility] PATIENT NAME: SANDY BHATTI32[address] [facility] MEDICAL REC #: [id number], [place] [address] DATE: 02/13/18DISCHARGE DATE: 02/16/18DISCHARGE SUMMARY ATTENDING PHY: Hao Nunez MD [facility] GFR ESTon 02-13-2018 IF AMER 12 ML/MIN [facility] Comment on above: Order Comment: Nenita s: M Performed By: #### L 500.98312, L500.90839 ####[facility] GNVYDQJTGG4715 [place], [place] [address]Ud# [phone] IF non-AFR AMER 10 ML/MIN Normal [facility] Comment on above: Order Comment: Nenita Perez Performed By: #### L 500.50891, L500.57181 ####[facility] YCHGFJOJFB9315 [place], [place] [address]Nb# [phone] GLUCOSE METERon 02-13-2018 Glucose mass conc 299 mg/dL High 85-125 [facility] Glucose mass conc 199 mg/dL High 85-125 [facility] HEP A IGM ABon 02-13-2018 HEP A IGM AB NONREACTIVE Normal NONREACTIVE [facility] Comment on above: Order Comment: Nenita munoz: Chris Result Comment: RESU LTS WERE OBTAINED WITH THE ADVIA CENTAUR XP HEPATITIS AIgM. VALUES OBTAINED WITH DIFFERENT MANUFACTURERS' ASSAYMETHODS MAY NOT BE USED INTERCHANGEABLY.These results may be falsely depressed in the presence ofBiotin concentrations above 500 ng/ml. Performed By: #### L 500.14674, L500.74202 ####[facility] WYMQTNEPDH9671 [place], [place] [address]Ac# [phone] HEP B CORE IGMon 02-13-2018 HEP B CORE IGM NONREACTIVE Normal NONREACTIVE [facility] Comment on above: Order Comment: Nenita Perez Result Comment: RESU LTS WERE OBTAINED WITH THE ADVIA CENTAUR XP ANTI-HBC IGMEIA. VALUES OBTAINED WITH DIFFERENT MANUFACTURERS' ASSAYMETHODS MAY NOT BE USED INTERCHANGEABLY.These results may be falsely depressed in the presence ofBiotin concentrations above 250 ng/ml. Performed By: #### L 500.07181, L500.64589 ####[facility] [id number] [place], [place] [address]Ct# [phone] HEPATITIS C ABon 02-13-2018 HCV AB NONREACTIVE Normal NONREACTIVE [facility] Comment on above: Order Comment: Nenita Perez Result Comment: SCRE ENING TEST NEGATIVENONREACTIVE HCV ANTIBODY SCREEN IS CONSISTENT WITH NO HCVINFECTION, UNLESS RECENT INFECTION IS SUSPECTED OR OTHEREVIDENCE EXISTS TO INDICATE HCV INFECTION Performed By: #### L 500.19359, L500.06365 ####[facility] KMGDXUQWQD3603 [place], [place] [address]Az# [phone] HGB A1C GLYCOHBon 02-13-2018 Hemoglobin A1c/Hemoglobin.total mass fraction (Bld) 7.5 % High 4.3-6.0 [facility] [place] Comment on above: Order Comment: Nenita s: M Performed By: #### L 500.19994, L500.12962 ####[facility] GSPTERQXSS8018 [place], [place] [address]Ba# [phone] HPon 02-13-2018 HP REASON FOR ADMISSION : CKD stage 5, end stage disease, uremia, anasarca.HISTORY: Mrs. Sandy Bhatti is a very pleasant 53-year-old lady, suffered frominsulin-dependent diabetes with complications of retinopathy, neuropathy,nephropathy, and finding some anasarca. [facility], came to the office today with significant edema and anasarca,weakness and tiredness, cannot function. We have been preparing her for dialysistreatment. We had AV fistula created by Dr. Herrera with Intervention, has not maturedyet, and after working on her to get on the transplant list to [facility]kid[facility] yet to be done. In [...] unsteady. Cannot function at home.Short of breath. [facility] PATIENT NAME: SANDY BHATTI K132Jonathan [facility] REC #: [id number], [place] [address] DATE: 02/13/18DISCHARGE DATE:HISTORY and PHYSICAL ATTENDING PHY: Hao Nunez MDVital signs: Her weight is up to 173 pounds from a baseline 158. Blood kqddaieq138/79, heart rate 67.HEENT: Pupils equally round and [...] kidney/pancreas transplant, andfollow along with you. _MED Arellano/[id number]: 02/13/2018 12:58DT: 02/13/2018 13:29SSI File#: [id number] #: [id number]/Reviewed by02/13/18 1529 ASFJE [facility] PATIENT NAME: SANDY BHATTI [id number] [facility] REC #: [id number], [place] [address] DATE: 02/13/18DISCHARGE DATE:HISTORY and PHYSICAL ATTENDING PHY: Hao Nunez MD Normal [facility] LIPIDon 02-13-2018 Cholesterol in HDL mass conc 50 mg/dL Normal GREATER [place] 40 [facility] Comment on above: Order Comment: Nenita Perez Result Comment: Bea ents receiving Metamizole prior to venipuncture, mayhave falsely depressed results. Performed By: #### L 500.42338, L500.65914 ####[facility] MCTDYTJRJH9950 [place] [address]Ph# [phone] Cholesterol in LDL mass conc 75 MG/DL Normal 0-129 [facility] Comment on above: Order Comment: Nenita Perez Result Comment: ___C HOLESTEROL/HDL RATIO RISK___ CHD RISK = Total CHOL LDL HDL (CHOL/HDL) ------Recommended <200 <130 >35 <3.4 Borderline 200-239 130-159 3.4-4.99 ----High >240 >160 >5.0 Performed By: #### L 500.51901, L500.89119 ####[facility] APUCGOMHKI3456 [place], [place] [address]Lf# [phone] Cholesterol mass conc 159 mg/dL Normal 0-199 [facility] Comment on above: Order Comment: Nentia Perez Performed By: #### L 500.21602, L500.37486 ####[facility] ZXXETSEJAX3418 [place], [place] [address]Np# [phone] Triglyceride mass conc 173 mg/dL High 30-149 [facility] Comment on above: Order Comment: Nenita munoz: Chris Result Comment: Bea ents receiving either N-Acetylcysteine (NAC) orMetamizole prior to venipuncture, may have falsely depressedresults. Performed By: #### L 500.47665, L500.40891 ####[facility] DFRFRPZLRA3531 [place], [place] [address]Ha# [phone] LIVERon 02-13-2018 Albumin mass conc 2.9 g/dL Low 3.2-5.0 [facility] Comment on above: Order Comment: Nenita Perez Performed By: #### L 500.94018, L500.51935 ####[facility] ZXMAGOXHIB6031 [place], [place] [address]Hb# [phone] Albumin/Globulin mass ratio 1.0 {ratio} Normal 0.8-2.0 [facility] Comment on above: Order Comment: Campu s: M Performed By: #### L 500.78444, L500.30391 ####[facility] UIFNPJWQKV9348 [place], [place] [address]Oc# [phone] ALK PHOS 580 U/L High 45-117 [facility] [place] Comment on above: Order Comment: Campu s: M Performed By: #### L 500.01527, L500.29710 ####[facility] EHIXAPMVNB[address] [place] [address]Ve# [phone] ALT enzyme act/vol 56 U/L Normal 13-61 [facility] Comment on above: Order Comment: Campu s: M Result Comment: RESU LTS MAY BE FALSELY DEPRESSED AFTER THE ADMINISTRATION OFSULFASALAZINE AND/OR SULFAPYRIDINE. Performed By: #### L 500.37837, L500.77001 ####[facility] [id number] [place] [address]Al# [phone] BILI DIRECT 0.35 MG/DL High 0.00-0.20 [facility] Comment on above: Order Comment: Campu s: M Performed By: #### L 500.53784, L500.95915 ####[facility] GLKHVJASNG[address] [place] [address]Wm# [phone] BILI TOTAL 0.6 MG/DL Normal 0.2-1.0 [facility] Comment on above: Order Comment: Campu s: M Performed By: #### L 500.93077, L500.55481 ####[facility] LGFAFOAJTF[address] [place] [address]Sg# [phone] Globulin Calculated mass conc (S) 2.9 g/dL Normal 2.2-4.2 [facility] Comment on above: Order Comment: Campu s: M Performed By: #### L 500.06805, L500.79030 ####[facility] EJJFCZWXFV6048 [place], [place] [address]Er# [phone] Protein mass conc 5.8 g/dL Low 6.0-8.5 [facility] Comment on above: Order Comment: Calebu s: M Performed By: #### L 500.36729, L500.87379 ####[facility] ERFEZKLWJS4775 [place], [place] [address]Rt# [phone] SGOT (AST) 267 U/L High 8-34 [facility] Comment on above: Order Comment: Campu s: M Result Comment: RESU LTS MAY BE FALSELY DEPRESSED AFTER THE ADMINISTRATION OFSULFASALAZINE AND/OR SULFAPYRIDINE. Performed By: #### L 500.43653, L500.89652 ####[facility] MIFZOYIJPW5358 [place], [place] [address]Lm# [phone] ORon 02-13-2018 OPERATIVE REPORT Normal [facility] OR DATE OF SERVICE: 02/14/2018PREOPERATIVE DIAGNOSIS: Non-maturing arteriovenous fistula left radiocephalic.POSTOPERATIV E DIAGNOSIS: Non-maturing arteriovenous fistula left radiocephalic.OPERATION:1. Ultrasound-guided retrograde access left radiocephalic arteriovenous fistula.2. Antegrade access to left brachial artery with first order to take out placement.3. Angioplasty of left radial artery with 2.5-mm x 12-cm Appleton balloon x2.4. Angioplasty of proximal anastomosis and proximal arteriovenous fistula with2.5-mm Appleton balloon x1.5. Angioplasty of proximal arteriovenous fistula [...] fistula outflow in the upper forearm. A 4-Spanish sheath was placed.Fistulogram through a catheter revealed [...] of the outflow with a 4x 4 Appleton balloon to 12 atmospheres for two 2-minute [...] withoutincident. The patient tolerated the procedure well. [facility] PATIENT NAME: SANDY BHATTI K1320 [facility] MEDICAL REC #: [id number], [place] [address] DATE: 02/13/18DISCHARGE DATE:OPERATIVE REPORT ATTENDING PHY: Hao Nunez MD J CIPRIANO Christianson/[id number]: 02/14/2018 17:24DT: 02/14/2018 18:21SSI File#: [id number] #: [id number]/Reviewed by02/16/18 0648 PREJE [facility] PATIENT NAME: SANDY BHATTI320 [facility] [address] MEDICAL REC #: [id number], [place] [address] DATE: 02/13/18DISCHARGE DATE:OPERATIVE REPORT ATTENDING PHY: Hao Nunez MD [facility] [place] PHOSon 02-13-2018 Phosphate mass conc 4.4 mg/dL Normal 2.5-4.9 [facility] Comment on above: Order Comment: Calebu s: M Performed By: #### L 500.98482, L500.99486 ####[facility] LRQLBQXZNF4355 [place], [place] [address]Yp# [phone] PORTABLE CHESTon 02-13-2018 PORTABLE CHEST PORTABLE CHESTOrderi [...] on File ----Signed By: Kade Bautista [email or web address]: 02/13/2018 4:24 PMSigned: 02/13/2018 4:26 PM Reported By: KADE BAUTISTA M.D. Signed By: KADE BAUTISTA M.D. Normal [facility] PTH INTACTon 02-13-2018 PTH INTACT 379.2 PG/ML High 18.5-88.0 [facility] Comment on above: Order Comment: Campu s: M Performed By: #### L 500.37847, L500.88557 ####[facility] WRYTOZQZVW4528 [place], [place] [address]Ek# [phone] CBCon 12-13-2017 Erythrocyte distribution width Auto Ratio (RBC) 13.2 % Normal 11-14.5 [facility] Comment on above: Order Comment: Campu s: M Performed By: #### L 500.47237, L500.69627 ####[address] [address]Jy# [phone] Hematocrit Auto Volume Fraction (Bld) 33.7 % Low 35.0-47.0 [facility] Comment on above: Order Comment: Campu s: M Performed By: #### L 500.68561, L500.58543 ####[facility] ZNKEZODYCM[address] [place] [address]Gw# [phone] Hemoglobin mass conc (Bld) 10.9 g/dL Low 11.5-15.5 [facility] Comment on above: Order Comment: Campu s: M Performed By: #### L 500.67375, L500.81292 ####[facility] HYHSLUXQVV[address] [place] [address]Rg# [phone] MCHC Auto mass conc (RBC) 32.3 g/dL Normal 32.0-36.0 [facility] Comment on above: Order Comment: Campu s: M Performed By: #### L 500.33397, L500.35463 ####[facility] LGWNAMCXXP[address] [place] [address]Ir# [phone] MCV Auto Entitic volume (RBC) 86.9 fL Normal 80.0-99.0 [facility] Comment on above: Order Comment: Campu s: M Performed By: #### L 500.98371, L500.25293 ####[facility] DWQUEFLNJL3905 [place], [place] [address]Rx# [phone] Nucleated RBC/100 WBC Ratio (Bld) 0.0 % Normal Less than 1 [facility] Comment on above: Order Comment: Campu s: M Performed By: #### L 500.01962, L500.42460 ####[address] [address]Hj# [phone] Platelet mean volume Auto Entitic volume (Bld) 9.2 fL Low 9.4-12.4 [facility] Comment on above: Order Comment: Campu s: M Performed By: #### L 500.40878, L500.06438 ####[address] [address]Mb# [phone] Platelets Auto #/vol (Bld) 191 K/CU MM Normal 150-450 [facility] Comment on above: Order Comment: Campu s: M Performed By: #### L 500.16819, L500.72088 ####[address] [address]Av# [phone] RBC Auto #/vol (Bld) 3.88 M/CU MM Low 3.90-5.30 [facility] [place] Comment on above: Order Comment: Campu s: M Performed By: #### L 500.92667, L500.69203 ####[facility] BVINZZMODC[address] [place] [address]Dz# [phone] WBC Auto #/vol (Bld) 6.8 K/CU MM Normal 4.5-11.0 [facility] [place] Comment on above: Order Comment: Campu s: M Performed By: #### L 500.51421, L500.52987 ####[facility] [id number] [place] [address]Ow# [phone] GFR ESTon 12-13-2017 IF AMER 14 ML/MIN Normal [facility] Comment on above: Order Comment: Campu s: M Performed By: #### L 500.73139, L500.92825 ####[facility] RPVVCCWHXT4559 [place], [place] [address]Kq# [phone] IF non-AFR AMER 12 ML/MIN Normal [facility] Comment on above: Order Comment: Calebu s: M Performed By: #### L 500.21038, L500.67413 ####[facility] QAMBQSYGBN9182 [place], [place] [address]Kj# [phone] ORon 12-13-2017 OPERATIVE REPORT Normal [facility] OR DATE OF SERVICE: 12/13/2017PREOPERATIVE DIAGNOSIS: Failing fistula, left upper extremity radiocephalic.POSTOPERATIV E DIAGNOSIS: Failing fistula, left upper extremity radiocephalic.OPERATION:1. Ultrasound guided retrograde access, left radiocephalic AV fistula.2. Ultrasound guided access to left brachial artery.3. Arteriogram, left upper extremity.4. Fistulogram, left upper extremity.5. Angioplasty, proximal AV fistula, left, with 2 mm Appleton balloon x2.6. Angioplasty, proximal AV fistula, with 4 mm x 4 cm Appleton balloon x3 and 4 mm x 2cm Appleton balloon x3.7. Angioplasty of left radial artery with 2.5 mm x 15 cm Appleton balloon x2.8. Angioplasty of proximal anastomosis and distal radial artery, left, with 3 mm x 6cm Appleton balloon.COMPLICATIONS: None.ANESTHESIA: IV sedation, monitored care by [...] the left forearmand the cephalic vein. A 4-Spanish sheath was placed. Fistulogram through an angledGlide [...] exchanged out for an angled Glidewire and a4-Spanish sheath. Glidewire was placed down the radial artery and attempts were madeat antegrade approach through the anastomosis retrograde. This was unsuccessful.The radial artery was quite diminutive. I supplemented heparinization during thecase, angioplastied the radial artery with a 2.5 x 15 cm Appleton balloon to 12atmospheres for 2, 2-minute inflations. This gave us better inflow. I then upsizedfrom a retrograde approach from the fistula sheath to a 4 mm balloon, angioplastied [facility] PATIENT NAME: SANDY BHATTI K1320 [facility] MEDICAL REC #: [id number], [place] [address] DATE:DISCHARGE DATE:OPERATIVE REPORT ATTENDING PHY: Héctor Herrera MDthe proximal area. We finally got good flow [...] with a 3 mm x 6 cm Appleton balloon for 12 atmospheres, for 2minute inflation. [...] incident. The patient tolerated the procedure well. __MARTINA LunaP/[id number]: 12/13/2017 11:01DT: 12/13/2017 11:35SSI File#: [id number] #: [id number]/Reviewed by12/18/17 2320 PREJE [facility] PATIENT NAME: SANDY BHATTI K132Jonathan [facility] MEDICAL REC #: [id number], [place] [address] DATE:DISCHARGE DATE:OPERATIVE REPORT ATTENDING PHY: Héctor Herrera MD Normal [facility] RENALon 12-13-2017 Albumin mass conc 3.0 g/dL Low 3.2-5.0 [facility] Comment on above: Order Comment: Nenita sFrances Perez Performed By: #### L 500.85797, L500.17148 ####[facility] XEMQHYXBUN0750 [place], [place] [address]Cs# [phone] Anion gap 3 molar conc 9 mmol/L Normal - [facility] Comment on above: Order Comment: Nenita Perez Performed By: #### L 500.63843, L500.41791 ####[facility] PPXCPQMRQS6344 [place], [place] [address]Zz# [phone] Calcium mass conc 8.1 mg/dL Low 8.5-10.1 [facility] Comment on above: Order Comment: Campu s: M Performed By: #### L 500.50109, L500.81715 ####[facility] WTLYUQSXMC0875 [place], [place] [address]Dr# [phone] Chloride molar conc 109 mmol/L High 98-107 [facility] Comment on above: Order Comment: Campu s: M Performed By: #### L 500.15394, L500.73472 ####[facility] XYYIHZPOHI8622 [place], [place] [address]Yu# [phone] CO2 molar conc 21 mmol/L Normal 21-32 [facility] Comment on above: Order Comment: Campu s: M Performed By: #### L 500.71883, L500.90887 ####[facility] LUNMNTUFLA1944 [place], [place] [address]Nr# [phone] Creatinine mass conc 3.970 mg/dL High 0.510-0.950 [facility] [place] Comment on above: Order Comment: Campu s: M Result Comment: Bea ents receiving either N-Acetylcysteine (NAC) orMetamizole prior to venipuncture, may have falsely depressedresults. Performed By: #### L 500.56075, L500.32448 ####[facility] HOUEDKYRBY0350 [place], [place] [address]Ge# [phone] Glucose mass conc 327 mg/dL High 70-100 [facility] Comment on above: Order Comment: Campu s: M Result Comment: 70-1 00- Normal Fasting; 100-125 Impaired Fasting; greaterthan 126 on more than one result- Diabetes. ADA guidelines.Results may be falsely elevated after the administration ofSulfapyridine.Results may be falsely depressed after the administration ofSulfasalazine. Performed By: #### L 500.06296, L500.04504 ####[facility] OHNELZVUAY8601 [place], [place] [address]Jo# [phone] Phosphate mass conc 4.9 mg/dL Normal 2.5-4.9 [facility] Comment on above: Order Comment: Campu s: M Performed By: #### L 500.86582, L500.84098 ####[facility] FLFXDDESBS0986 [place], [place] [address]Hj# [phone] Potassium molar conc 5.2 mmol/L High 3.5-5.1 [facility] Comment on above: Order Comment: Campu s: M Performed By: #### L 500.36185, L500.50409 ####[facility] ABYPYVEDNU7302 [place], [place] [address]Mn# [phone] Sodium molar conc 139 mmol/L Normal 136-145 [facility] Comment on above: Order Comment: Campu s: M Performed By: #### L 500.49159, L500.45045 ####[address] [address]Ue# [phone] Urea nitrogen mass conc 44 mg/dL High 7-26 [facility] Comment on above: Order Comment: Campu s: M Performed By: #### L 500.69719, L500.27209 ####[facility] [id number] [place] [address] 69[address]Tu# [phone] Urea nitrogen/Creatinine mass ratio 11 mg/mg Low 15-24 [facility] Comment on above: Order Comment: Campu s: M Performed By: #### L 500.51318, L500.10904 ####[facility] [id number] [place] [address] 28361Da# [phone] CBCon 12-05-2017 Erythrocyte distribution width Auto Ratio (RBC) 13.0 % Normal 11-14.5 [facility] Comment on above: Order Comment: Campu s: M Performed By: #### L 200.11624 ####[facility] [id number] [place] [address] 47330Qv# [phone] Hematocrit Auto Volume Fraction (Bld) 34.0 % Low 35.0-47.0 [facility] Comment on above: Order Comment: Campu s: M Performed By: #### L 200.63523 ####[facility] [id number] [place], [place] [address]Ts# [phone] Hemoglobin mass conc (Bld) 10.8 g/dL Low 11.5-15.5 [facility] Comment on above: Order Comment: Campu s: M Performed By: #### L 200.87026 ####[facility] [id number] [place] [address] 637[address]Hq# [phone] MCHC Auto mass conc (RBC) 31.8 g/dL Low 32.0-36.0 [facility] Comment on above: Order Comment: Campu s: M Performed By: #### L 200.66272 ####[place] [address]33[address]Ph# [phone] MCV Auto Entitic volume (RBC) 86.5 fL Normal 80.0-99.0 [facility] Comment on above: Order Comment: Campu s: M Performed By: #### L 200.09433 ####[place] 0633[address]Ph# [phone] Nucleated RBC/100 WBC Ratio (Bld) 0.3 % Normal Less than 1 [facility] Comment on above: Order Comment: Campu s: M Performed By: #### L 200.41078 ####[address] [address]Mu# [phone] Platelet mean volume Auto Entitic volume (Bld) 9.3 fL Low 9.4-12.4 [facility] Comment on above: Order Comment: Campu s: M Performed By: #### L 200.75200 ####[facility] [id number] [place] [address] 797[address]Rf# [phone] Platelets Auto #/vol (Bld) 184 K/CU MM Normal 150-450 [facility] Comment on above: Order Comment: Campu s: M Performed By: #### L 200.59585 ####[facility] [id number] [place], [place] [address]346[address]Ph# [phone] RBC Auto #/vol (Bld) 3.93 M/CU MM Normal 3.90-5.30 [facility] Comment on above: Order Comment: Campu s: M Performed By: #### L 200.90002 ####[facility] [id number] [place], [place] [address]Ch# [phone] WBC Auto #/vol (Bld) 6.0 K/CU MM Normal 4.5-11.0 [facility] [place] Comment on above: Order Comment: Campu s: M Performed By: #### L 200.71836 ####[facility] [id number] [place] [address] 56177Bj# [phone] GFR ESTon 12-05-2017 IF AMER 14 ML/MIN Normal [facility] Comment on above: Order Comment: Campu s: M Performed By: #### L 500.74551, L500.55162 ####[facility] [id number] [place] [address] 916[address]Th# [phone] IF non-AFR AMER 12 ML/MIN Normal [facility] Comment on above: Order Comment: Campu s: M Performed By: #### L 500.44898, L500.25834 ####[facility] [id number] [place] [address] 114[address]Nn# [phone] RENALon 12-05-2017 Albumin mass conc 2.9 g/dL Low 3.2-5.0 [facility] Comment on above: Order Comment: Campu s: M Performed By: #### L 500.72940, L500.25232 ####[facility] [id number] [place], [place] [address]Lm# [phone] Anion gap 3 molar conc 11 mmol/L Normal 5-16 [facility] Comment on above: Order Comment: Campu s: M Performed By: #### L 500.78056, L500.58532 ####[facility] [id number] [place], [place] [address]Px# [phone] Calcium mass conc 8.1 mg/dL Low 8.5-10.1 [facility] Comment on above: Order Comment: Campu s: M Performed By: #### L 500.64326, L500.20329 ####[facility] [id number] [place], [place] [address]Lr# [phone] Chloride molar conc 109 mmol/L High 98-107 [facility] Comment on above: Order Comment: Campu s: M Performed By: #### L 500.10093, L500.93357 ####[facility] [id number] [place], [place] [address]Yj# [phone] CO2 molar conc 20 mmol/L Low 21-32 [facility] Comment on above: Order Comment: Campu s: M Performed By: #### L 500.83897, L500.70278 ####[facility] [id number] [place], [place] [address]Ar# [phone] Creatinine mass conc 4.060 mg/dL High 0.510-0.950 [facility] Comment on above: Order Comment: Campu s: M Result Comment: Bea ents receiving either N-Acetylcysteine (NAC) orMetamizole prior to venipuncture, may have falsely depressedresults. Performed By: #### L 500.38631, L500.55035 ####[facility] [id number] [place], [place] [address]Up# [phone] Glucose mass conc 231 mg/dL High 70-100 [facility] Comment on above: Order Comment: Campu s: M Result Comment: 70-1 00- Normal Fasting; 100-125 Impaired Fasting; greaterthan 126 on more than one result- Diabetes. ADA guidelines.Results may be falsely elevated after the administration ofSulfapyridine.Results may be falsely depressed after the administration ofSulfasalazine. Performed By: #### L 500.62178, L500.72534 ####[facility] [id number] [place], [place] [address]Le# [phone] Phosphate mass conc 4.8 mg/dL Normal 2.5-4.9 [facility] Comment on above: Order Comment: Campu s: M Performed By: #### L 500.76205, L500.99563 ####[facility] [id number] [place], [place] [address]Am# [phone] Potassium molar conc 5.1 mmol/L Normal 3.5-5.1 [facility] Comment on above: Order Comment: Campu s: M Performed By: #### L 500.16689, L500.02949 ####[facility] [id number] [place], [place] [address]Si# [phone] Sodium molar conc 140 mmol/L Normal 136-145 [facility] Comment on above: Order Comment: Campu s: M Performed By: #### L 500.54420, L500.08610 ####[facility] [id number] [place], [place] [address]Ok# [phone] Urea nitrogen mass conc 48 mg/dL High 7-26 [facility] Comment on above: Order Comment: Campu s: M Performed By: #### L 500.57484, L500.00921 ####[facility] [id number] [place], [place] [address]Ac# [phone] Urea nitrogen/Creatinine mass ratio 12 mg/mg Low 15-24 [facility] Comment on above: Order Comment: Campu s: M Performed By: #### L 500.28175, L500.00283 ####[facility] [id number] [place], [place] [address]Qk# [phone] US DIALYSIS GRAFT/FISTULAon 11-27-2017 DIALYSIS GRAFT/[place], [place] [address]Tfzcyidq Lab- ICAVL Accredited in:Extracranial Cerebrovascular, Visceral Vascular, Vascular Screening& Peripheral Arterial & Venous TestingPhone: MEDSTREAMING REPORTPatient: Asael BHATTI Dr: HÉCTOR HERRERA M.D.[id number]/ 52 FStatus: REG CLI Jayce for Visit: CKD STAGE 5 N18.5Service Date: 11/27/17Access#: [id number]: US DIALYSIS GRAFT/FISTULAConclusions:L eft:1. The radial artery to cephalic vein AV fistula appears to be stenotic in the proximaloutflow with a velocity of 533/205 cm/s. Post stenotic turbulence is visualized distal tothe stenosis.2. The Brachial Artery flow volume is 216cc/minAbbreviated Final Report. Full Report available via Link to [employer] in [employer] .Electronically Signed by: HÉCTOR HERRERA M.D. 11/28/17 0828 HÉCTOR HERRERA M.D.cc: HÉCTOR HERRERA M.D. << Signature on File>> Reported By: HÉCTOR HERRERA M.D. Signed By: HÉCTOR HERRERA M.D.Tests performed at:[address] [phone] Normal [facility] 10-04-2017 Anion gap 3 molar conc 8 mmol/L Normal 5-16 [facility] Comment on above: Order Comment: Campu s: M Performed By: #### L 500.62426, L500.07733 ####[facility] [id number] [place], [place] [address]Po# [phone] Calcium mass conc 8.2 mg/dL Low 8.5-10.1 [facility] Comment on above: Order Comment: Campu s: M Performed By: #### L 500.42429, L500.48602 ####[facility] [id number] [place], [place] [address]Md# [phone] Chloride molar conc 106 mmol/L Normal 98-107 [facility] Comment on above: Order Comment: Campu s: M Performed By: #### L 500.19540, L500.90341 ####[facility] [id number] [place], [place] [address]Ie# [phone] CO2 molar conc 25 mmol/L Normal 21-32 [facility] Comment on above: Order Comment: Calebu s: M Performed By: #### L 500.88360, L500.22821 ####[facility] [id number] [place], [place] [address]Gq# [phone] Creatinine mass conc 4.160 mg/dL High 0.510-0.950 [facility] Comment on above: Order Comment: Campu s: M Result Comment: Bea ents receiving either N-Acetylcysteine (NAC) orMetamizole prior to venipuncture, may have falsely depressedresults. Performed By: #### L 500.60521, L500.07067 ####[facility] [id number] [place], [place] [address]Ip# [phone] Glucose mass conc 224 mg/dL High 70-100 [facility] Comment on above: Order Comment: Calebu s: M Result Comment: 70-1 00- Normal Fasting; 100-125 Impaired Fasting; greaterthan 126 on more than one result- Diabetes. ADA guidelines.Results may be falsely elevated after the administration ofSulfapyridine.Results may be falsely depressed after the administration ofSulfasalazine. Performed By: #### L 500.33159, L500.32583 ####[facility] [id number] [place], [place] [address]Ua# [phone] Potassium molar conc 4.9 mmol/L Normal 3.5-5.1 [facility] Comment on above: Order Comment: Campu s: M Performed By: #### L 500.35854, L500.99461 ####[facility] [id number] [place], [place] [address]Vi# [phone] Sodium molar conc 139 mmol/L Normal 136-145 [facility] Comment on above: Order Comment: Campu s: M Performed By: #### L 500.51275, L500.38986 ####[facility] [id number] [place], [place] [address]Ho# [phone] Urea nitrogen mass conc 52 mg/dL High 7-26 [facility] Comment on above: Order Comment: Campu s: M Performed By: #### L 500.23049, L500.36480 ####[facility] [id number] [place] [address]Gy# [phone] Urea nitrogen/Creatinine mass ratio 12 mg/mg Low 15-24 [facility] Comment on above: Order Comment: Campu s: M Performed By: #### L 500.13471, L500.45348 ####[address] [address]Dz# [phone] CBC W/DIFFon 10-04-2017 BASO ABS 0.10 K/CU MM Normal 0-0.2 [facility] Comment on above: Order Comment: Campu s: M Performed By: #### L 200.79065 ####[address] [address]Dl# [phone] Basophils/100 WBC Auto (Bld) 0.8 % Normal 0-2 [facility] [place] Comment on above: Order Comment: Campu s: M Performed By: #### L 200.54564 ####[address] [address]Gi# [phone] EOS ABS 0.10 K/CU MM Normal 0-0.5 [facility] [place] Comment on above: Order Comment: Campu s: M Performed By: #### L 200.58258 ####[facility] [id number] [place] [address] 15[address]Ba# [phone] Eosinophils/100 WBC Auto (Bld) 1.1 % Normal 0-5 [facility] Comment on above: Order Comment: Campu s: M Performed By: #### L 200.81774 ####[facility] [id number] [place] [address]Ui# [phone] Erythrocyte distribution width Auto Ratio (RBC) 12.7 % Normal 11-14.5 [facility] Comment on above: Order Comment: Campu s: M Performed By: #### L 200.31337 ####[facility] [id number] [place], [place] [address]Ph# [phone] Hematocrit Auto Volume Fraction (Bld) 33.0 % Low 35.0-47.0 [facility] Comment on above: Order Comment: Campu s: M Performed By: #### L 200.79862 ####[place] [address]33[address]Ph# [phone] Hemoglobin mass conc (Bld) 11.0 g/dL Low 11.5-15.5 [facility] Comment on above: Order Comment: Campu s: M Performed By: #### L 200.25644 ####[place] [address]33[address]Ph# [phone] IMMATR GRAN ABS 0.00 K/CU MM Normal Less than 2 [facility] Comment on above: Order Comment: Campu s: M Performed By: #### L 200.25752 ####[place] [address]33[address]Ph# [phone] IMMATURE GRAN % 0.3 % Normal Less than 2 [facility] Comment on above: Order Comment: Campu s: M Performed By: #### L 200.44723 ####[facility] [id number] [place], [place] [address]Ph# [phone] Lymphocytes Auto #/vol (Bld) 1.20 K/CU MM Normal 0.9-4.4 [facility] Comment on above: Order Comment: Campu s: M Performed By: #### L 200.92830 ####[facility] [id number] [place], [place] [address]Ph# [phone] Lymphocytes/100 WBC Auto (Bld) 16.2 % Low 20-40 [facility] Comment on above: Order Comment: Campu s: M Performed By: #### L 200.68618 ####[facility] [id number] [place], [place] [address]Ph# [phone] MCHC Auto mass conc (RBC) 33.3 g/dL Normal 32.0-36.0 [facility] Comment on above: Order Comment: Campu s: M Performed By: #### L 200.22781 ####[facility] [id number] [place], [place] [address]Ph# [phone] MCV Auto Entitic volume (RBC) 85.3 fL Normal 80.0-99.0 [facility] Comment on above: Order Comment: Campu s: M Performed By: #### L 200.25664 ####[address]# [phone] MONO ABS 0.40 K/CU MM Normal 0.1-1.1 [facility] Comment on above: Order Comment: Campu s: M Performed By: #### L 200.99917 ####[address]# [phone] Monocytes/100 WBC Auto (Bld) 5.2 % Normal 2-10 [facility] Comment on above: Order Comment: Campu s: M Performed By: #### L 200.58052 ####[facility] [id number] [place], [place] [address]Ph# [phone] NEUTROPHIL ABS 5.80 K/CU MM Normal 2.0-8.3 [facility] Comment on above: Order Comment: Campu s: M Performed By: #### L 200.66637 ####[facility] [id number] [place], [place] [address]Ph# [phone] Neutrophils/100 WBC Auto (Bld) 76.4 % High 45-75 [facility] Comment on above: Order Comment: Campu s: M Performed By: #### L 200.07087 ####[facility] [id number] [place], [place] [address]Ph# [phone] Nucleated RBC/100 WBC Ratio (Bld) 0.0 % Normal Less than 1 [facility] Comment on above: Order Comment: Campu s: M Performed By: #### L 200.31839 ####[facility] [id number] [place] [address]Te# [phone] Platelet mean volume Auto Entitic volume (Bld) 9.0 fL Low 9.4-12.4 [facility] Comment on above: Order Comment: Campu s: M Performed By: #### L 200.88688 ####[place] [address]33[address]Ph# [phone] Platelets Auto #/vol (Bld) 189 K/CU MM Normal 150-450 [facility] Comment on above: Order Comment: Campu s: M Performed By: #### L 200.33933 ####[address] [address]Qe# [phone] RBC Auto #/vol (Bld) 3.87 M/CU MM Low 3.90-5.30 [facility] Comment on above: Order Comment: Campu s: M Performed By: #### L 200.79350 ####[address] [address]Xb# [phone] WBC Auto #/vol (Bld) 7.5 K/CU MM Normal 4.5-11.0 [facility] Comment on above: Order Comment: Campu s: M Performed By: #### L 200.08112 ####[address] [address]Mf# [phone] GFR ESTon 10-04-2017 IF AMER 14 ML/MIN Normal [facility] Comment on above: Order Comment: Campu s: M Performed By: #### L 500.65438, L500.82610 ####[address] [address]Oi# [phone] IF non-AFR AMER 11 ML/MIN Normal [facility] Comment on above: Order Comment: Campu s: M Performed By: #### L 500.75198, L500.67239 ####[address], [place] [address]Ms# [phone] GLUCOSE METERon 10-04-2017 Glucose mass conc 169 mg/dL High 85-125 [facility] ORon 10-04-2017 OPERATIVE REPORT Normal [facility] OR DATE OF SERVICE: 10/04/2017PREOPERATIVE DIAGNOSIS: [...] patient was systemically heparinized. We then performed kkqyi-ka-alsa spatulated anastomosis between the cephalic and radial [...] to the recovery room in stable condition. [facility] PATIENT NAME: [facility] #: [id number] [address] DATE:DISCHARGE DATE:OPERATIVE REPORT ATTENDING PHY: Héctor Herrera MD J ritesh Herrera MDJP/[id number]: 10/04/2017 10:05DT: 10/04/2017 10:43SSI File#: [id number] #: [id number]/Reviewed by10/04/17 1119 PREJE [facility] PATIENT NAME: SANDY BHATTI K132Jonathan [facility] MEDICAL REC #: [id number], [place] [address] DATE:DISCHARGE DATE:OPERATIVE REPORT ATTENDING PHY: Héctor Herrera MD Normal [facility] PATIENT RETYPEon 10-04-2017 [facility]2017 ABO and Rh group Nom (Bld) A POSITIVE [facility] Comment on above: Order Comment: Campu s: MPatient transfused or in the past 3 months? NOIs This Patient Going To Surgery? YSurgery Date: 10/04/17 VEIN MAPPING FOR DIALYSISon 09-18-2017 VEIN MAPPING FOR DIALYSIS [place] [address]Clpaqlbb Lab- ICAVL Accredited in:Extracranial Cerebrovascular, Visceral Vascular, Vascular Screening& Peripheral Arterial & Venous TestingPhone: MEDSTREAMING REPORTPatient: Asael BHATTI Dr: HAO NUNZE M.D.[id number]/ [id number] FStatus: REG CLI Jayce for Visit: SOMMER CKD STAGE 5Service Date: 09/18/17Access#: [id number]: VEIN MAPPING FOR DIALYSISConclusions:Right: 1. Patent superficial [...] Report. Full Report available via Link to [employer] in [employer] .Electronically Signed by: HÉCTOR HERRERA M.D. 09/19/17 1047 HÉCTOR HERRERA M.D.cc: HAO NUNEZ M.D. << Signature on File>> Reported By: HÉCTOR HERRERA M.D. Signed By: HÉCTOR HERRERA M.D.Tests performed at:[address] [phone] Normal [facility] No Panel Information [facility] Vital Signs Date Time Vital Sign Value Performing Clinician Facility 05-18-2025 00:02-0400 Body temperature 98 [degF] Dr. Maldonado Raza MD Work Phone: [facility] 05-18-2025 00:02-0400 Diastolic blood pressure 50 mm[Hg] Dr. Maldonado Raza MD Work Phone: 3(444)386-077822 [place] [address] 05-18-2025 00:02-0400 Heart rate 72 /min Dr. Maldonado Raza MD Work Phone: 3(325)952-101[address] [place] [address] 05-18-2025 00:02-0400 Respiratory rate 18 /min Dr. Maldonado Raza MD Work Phone: 2(313)471-309920 [place] [address] 05-18-2025 00:02-0400 SaO2% (BldA) [Mass fraction] 95 % Dr. Maldonado Raza MD Work Phone: [facility] 05-18-2025 00:02-0400 Systolic blood pressure 146 mm[Hg] Dr. Maldonado Raza MD Work Phone: [facility] 05-17-2025 21:38-0400 Body mass index (BMI) [Ratio] 22.8 kg/m2 Dr. Maldonado Raza MD Work Phone: 0(893)744-684641 [place] [address] 05-17-2025 21:38-0400 Body weight 56.[address] Maldonado Raza MD Work Phone: [facility] 05-17-2025 21:18-0400 Body height 157.[address] Maldonado Raza MD Work Phone: [facility] 05-13-2025 08:59-0400 Body mass index (BMI) [Ratio] 22.78 kg/m2 Maldonado Raza MD Work Phone: [facility] 05-13-2025 08:59-0400 Body temperature 97.81 [degF] Maldonado Raza MD Work Phone: [facility] 05-13-2025 08:59-0400 Body weight 56.5 kg Maldonado Raza MD Work Phone: [facility] 05-13-2025 08:59-0400 Diastolic blood pressure 56 mm[Hg] Maldonado Raza MD Work Phone: [facility] 05-13-2025 08:59-0400 Heart rate 64 /min Maldonado Raza MD Work Phone: [facility] 05-13-2025 08:59-0400 SaO2% (BldA) [Mass fraction] 98 % Maldonado Raza MD Work Phone: [facility] 05-13-2025 08:59-0400 Systolic blood pressure 130 mm[Hg] Maldonado Raza MD Work Phone: [facility] 02-20-2025 09:10-0400 Diastolic blood pressure 62 mm[Hg] Fer Duron MD Work Phone: [facility] 02-20-2025 09:10-0400 Systolic blood pressure 164 mm[Hg] Fer Duron MD Work Phone: [facility] 02-20-2025 09:06-0400 Body height 157.5 cm Fer Duron MD Work Phone: [facility] 02-20-2025 09:06-0400 Body mass index (BMI) [Ratio] 24.15 kg/m2 Fer Duron MD Work Phone: [facility] 02-20-2025 09:06-0400 Body weight 59.9 kg Fer Duron MD Work Phone: [facility] 02-20-2025 09:06-0400 Heart rate 68 /min Fer Duron MD Work Phone: [facility] 02-06-2025 11:44-0400 Body mass index (BMI) [Ratio] 23.75 kg/m2 Maldonado Raza MD Work Phone: [facility] 02-06-2025 11:44-0400 Body temperature 98.29 [degF] Maldonado Raza MD Work Phone: [facility] 02-06-2025 11:44-0400 Body weight 58.9 kg Maldonado Raza MD Work Phone: [facility] 02-06-2025 11:44-0400 Diastolic blood pressure 60 mm[Hg] Maldonado Raza MD Work Phone: [facility] 02-06-2025 11:44-0400 Heart rate 68 /min Maldonado Raza MD Work Phone: [facility] 02-06-2025 11:44-0400 SaO2% (BldA) [Mass fraction] 97 % Maldonado Raza MD Work Phone: [facility] 02-06-2025 11:44-0400 Systolic blood pressure 124 mm[Hg] Maldonado Raza MD Work Phone: [facility] 01-30-2025 09:57-0400 Body temperature 98 [degF] Dr. Maldonado Raza MD Work Phone: [facility] 01-30-2025 09:57-0400 Diastolic blood pressure 50 mm[Hg] Dr. Maldonado Raza MD Work Phone: 2(006)372-181341 [place] [address] 01-30-2025 09:57-0400 Heart rate 69 /min Dr. Maldonado Raza MD Work Phone: [facility] 01-30-2025 09:57-0400 Inhaled oxygen flow rate 2 L/min Dr. Maldonado Raza MD Work Phone: [facility] 01-30-2025 09:57-0400 Respiratory rate 16 /min Dr. Maldonado Raza MD Work Phone: [facility] 01-30-2025 09:57-0400 SaO2% (BldA) [Mass fraction] 96 % Dr. Madlonado Raza MD Work Phone: 4(649)452-006422 [place] [address] 01-30-2025 09:57-0400 Systolic blood pressure 146 mm[Hg] Dr. Maldonado Raza MD Work Phone: 2(035)881-188720 [place] [address] 01-29-2025 15:35-0400 Body mass index (BMI) [Ratio] 20.8 kg/m2 Dr. Maldonado Raza MD Work Phone: 8(363)417-764520 [place] [address] 01-29-2025 15:35-0400 Body weight 55.[address] Maldonado Raza MD Work Phone: 4(102)286-598920 [place] [address] 01-28-2025 13:12-0400 Body height 162.[address] Maldonado Raza MD Work Phone: 6(806)043-703820 [place] [address] 01-28-2025 09:59-0400 Body temperature 98.3 [degF] Dr. Maldonado Raza MD Work Phone: 7(153)[phone] [place] [address] 01-28-2025 09:59-0400 Diastolic blood pressure 59 mm[Hg] Dr. Maldonado Raza MD Work Phone: 9(237)955-367820 [place] [address] 01-28-2025 09:59-0400 Heart rate 92 /min Dr. Maldonado Raza MD Work Phone: 1(355)[phone] [place] [address] 01-28-2025 09:59-0400 Respiratory rate 22 /min Dr. Maldonado Raza MD Work Phone: 5(330)[phone] [place] [address] 01-28-2025 09:59-0400 SaO2% (BldA) [Mass fraction] 98 % Dr. Maldonado Raza MD Work Phone: 3(700)[phone] [place] [address] 01-28-2025 09:59-0400 Systolic blood pressure 162 mm[Hg] Dr. Maldonado Raza MD Work Phone: 0(632)[phone] [address] [place] [address] 01-28-2025 08:18-0400 Inhaled oxygen flow rate 2 L/min Dr. Maldonado Raza MD Work Phone: 0(902)[phone] [place] [address] 01-28-2025 07:51-0400 Body height 160.[address] Maldonado Raza MD Work Phone: [facility] 01-28-2025 07:51-0400 Body mass index (BMI) [Ratio] 25.4 kg/m2 Dr. Maldonado Raza MD Work Phone: [facility] 01-28-2025 07:51-0400 Body weight 65.[address] Maldonado Raza MD Work Phone: [facility] 12-31-2024 10:12-0400 Body mass index (BMI) [Ratio] 23 kg/m2 Dr. Maldonado Raza MD Work Phone: 5(534)847-681838 [address] 12-31-2024 10:12-0400 Body temperature 97.8 [degF] Dr. Maldonado Raza MD Work Phone: 4(228)295-082238 [address] 12-31-2024 10:12-0400 Body weight 58.[address] Maldonado Raza MD Work Phone: 6(023)313-357141 [place] [address] 12-31-2024 10:12-0400 Diastolic blood pressure 66 mm[Hg] Dr. Maldonado Raza MD Work Phone: 4(678)270-626241 [place] [address] 12-31-2024 10:12-0400 Heart rate 88 /min Dr. Maldonado Raza MD Work Phone: 5(152)884-168741 [place] [address] 12-31-2024 10:12-0400 SaO2% (BldA) [Mass fraction] 95 % Dr. Maldonado Raza MD Work Phone: [facility] 12-31-2024 10:12-0400 Systolic blood pressure 169 mm[Hg] Dr. Maldonado Raza MD Work Phone: [facility] 12-05-2024 09:28-0400 Body mass index (BMI) [Ratio] 24.17 kg/m2 Maldonado Raza MD Work Phone: [facility] 12-05-2024 09:28-0400 Body temperature 98.1 [degF] Maldonado Raza MD Work Phone: [facility] 12-05-2024 09:28-0400 Body weight 61.1 kg Maldonado Raza MD Work Phone: [facility] 12-05-2024 09:28-0400 Diastolic blood pressure 64 mm[Hg] Maldonado Raza MD Work Phone: [facility] 12-05-2024 09:28-0400 Heart rate 68 /min Maldonado Raza MD Work Phone: [facility] 12-05-2024 09:28-0400 Systolic blood pressure 124 mm[Hg] Maldonado Raza MD Work Phone: [facility] 11-26-2024 08:19-0400 Body height 157 cm [facility] 1 [facility] 11-26-2024 08:19-0400 Body mass index (BMI) [Ratio] 26.78 kg/m2 [address] 11-26-2024 08:19-0400 Body weight [address] 07-25-2024 10:57-0500 Body mass index (BMI) [Ratio] 26.78 kg/m2 Kade Jones MD Work Phone: [facility] 07-25-2024 10:57-0500 Body temperature 97.39 [degF] Kade Jones MD Work Phone: [facility] 07-25-2024 10:57-0500 Body weight 66.41 kg Kade Jones MD Work Phone: [facility] 07-25-2024 10:57-0500 Diastolic blood pressure 85 mm[Hg] Kade Jones MD Work Phone: [facility] 07-25-2024 10:57-0500 Heart rate 67 /min Kade Jones MD Work Phone: [facility] 07-25-2024 10:57-0500 SaO2% (BldA) [Mass fraction] 93 % Kade Jones MD Work Phone: [facility] 07-25-2024 10:57-0500 Systolic blood pressure 158 mm[Hg] Kade Jones MD Work Phone: [facility] 07-23-2024 16:28-0500 Body height 157.5 cm Murtaza Castellon MD Work Phone: [facility] 07-23-2024 16:28-0500 Body mass index (BMI) [Ratio] 26.7 kg/m2 Murtaza Castellon MD Work Phone: [facility] 07-23-2024 16:28-0500 Body weight 66.22 kg Murtaza Castellon MD Work Phone: [facility] 07-23-2024 16:28-0500 Diastolic blood pressure 64 mm[Hg] Murtaza Castellon MD Work Phone: [facility] 07-23-2024 16:28-0500 Heart rate 86 /min Murtaza Castellon MD Work Phone: [facility] 07-23-2024 16:28-0500 SaO2% (BldA) [Mass fraction] 90 % Murtaza Castellon MD Work Phone: [facility] 07-23-2024 16:28-0500 Systolic blood pressure 162 mm[Hg] Murtaza Castellon MD Work Phone: [facility] 06-13-2024 15:06-0400 Body height 159 cm Maldonado Raza MD Work Phone: [facility] 06-13-2024 15:06-0400 Body mass index (BMI) [Ratio] 26.74 kg/m2 Maldonado Raza MD Work Phone: [facility] 06-13-2024 15:06-0400 Body temperature 97.11 [degF] Maldonado Raza MD Work Phone: [facility] 06-13-2024 15:06-0400 Body weight 67.6 kg Maldonado Raza MD Work Phone: [facility] 06-11-2024 07:26-0400 Diastolic blood pressure 68 mm[Hg] Mandie Younger DIRECTOR OF PHYSICAL EDUCATION.SCREW MACHINE OPERATOR SWISS TYPE Work Phone: [facility] 06-11-2024 07:26-0400 Systolic blood pressure 136 mm[Hg] Mandie Younger DIRECTOR OF PHYSICAL EDUCATION.SCREW MACHINE OPERATOR SWISS TYPE Work Phone: [facility] 06-11-2024 07:00-0400 Body height 160 cm Mandie Younger DIRECTOR OF PHYSICAL EDUCATION.SCREW MACHINE OPERATOR SWISS TYPE Work Phone: [facility] 06-11-2024 07:00-0400 Body mass index (BMI) [Ratio] 26.44 kg/m2 Mandie Younger DIRECTOR OF PHYSICAL EDUCATION.SCREW MACHINE OPERATOR SWISS TYPE Work Phone: [facility] 06-11-2024 07:00-0400 Body weight 67.7 kg Mandie Younger APRN.SCREW MACHINE OPERATOR SWISS TYPE Work Phone: [facility] 06-11-2024 07:00-0400 Heart rate 78 /min Mandie Younger DIRECTOR OF PHYSICAL EDUCATION.SCREW MACHINE OPERATOR SWISS TYPE Work Phone: [facility] 06-11-2024 07:00-0400 SaO2% (BldA) [Mass fraction] 97 % Mandie Younger DIRECTOR OF PHYSICAL EDUCATION.SCREW MACHINE OPERATOR SWISS TYPE Work Phone: [facility] 05-08-2024 15:33-0400 Diastolic blood pressure 67 mm[Hg] Luna Thomas MD Work Phone: [facility] 05-08-2024 15:33-0400 Heart rate 82 /min Luna Thomas MD Work Phone: [facility] 05-08-2024 15:33-0400 Systolic blood pressure 167 mm[Hg] Luna Thomas MD Work Phone: [facility] 02-29-2024 15:12-0400 Diastolic blood pressure 64 mm[Hg] Maldonado Raza MD Work Phone: [facility] 02-29-2024 15:12-0400 Heart rate 73 /min Maldonado Raza MD Work Phone: [facility] 02-29-2024 15:12-0400 Systolic blood pressure 181 mm[Hg] Maldonado Raza MD Work Phone: [facility] 02-29-2024 15:03-0400 Body mass index (BMI) [Ratio] 27.22 kg/m2 Maldonado Raza MD Work Phone: [facility] 02-29-2024 15:03-0400 Body temperature 97.81 [degF] Maldonado Raza MD Work Phone: [facility] 02-29-2024 15:03-0400 Body weight 67.5 kg Maldonado Raza MD Work Phone: [facility] 12-07-2023 10:02-0400 Body height 160 cm [employer] Work Phone: [facility] 12-07-2023 10:02-0400 Body weight 67.59 kg Dave [employer] DO Work Phone: [facility] 12-07-2023 10:02-0400 Diastolic blood pressure 56 mm[Hg] Dave Gross DO Work Phone: [facility] 12-07-2023 10:02-0400 Heart rate 70 /min [employer] DO Work Phone: [facility] 12-07-2023 10:02-0400 Systolic blood pressure 132 mm[Hg] Dave [employer] DO Work Phone: [facility] 10-26-2023 13:12-0500 Diastolic blood pressure 67 mm[Hg] Maldonado Raza MD Work Phone: [facility] 10-26-2023 13:12-0500 Heart rate 71 /min Maldonado Raza MD Work Phone: [facility] 10-26-2023 13:12-0500 Systolic blood pressure 154 mm[Hg] Maldonado Raza MD Work Phone: [facility] 10-26-2023 13:01-0500 Body height 159 cm Maldonado Raza MD Work Phone: [facility] 10-26-2023 13:01-0500 Body temperature 97.9 [degF] Maldonado Raza MD Work Phone: [facility] 10-26-2023 13:01-0500 Body weight 67.59 kg Maldonado Raza MD Work Phone: [facility] 09-18-2023 11:45-0500 Diastolic blood pressure 63 mm[Hg] [address] 09-18-2023 11:45-0500 Heart rate 82 /min [address] 09-18-2023 11:45-0500 Respiratory rate 16 /min [address] 09-18-2023 11:45-0500 SaO2% (BldA) [Mass fraction] 98 % [address] 09-18-2023 11:45-0500 Systolic blood pressure 147 mm[Hg] [address] 06-29-2023 13:51-0400 Diastolic blood pressure 56 mm[Hg] Maldonado Raza MD Work Phone: [facility] 06-29-2023 13:51-0400 Heart rate 66 /min Maldonado Raza MD Work Phone: [facility] 06-29-2023 13:51-0400 Systolic blood pressure 143 mm[Hg] Maldonado Raza MD Work Phone: [facility] 06-29-2023 13:48-0400 Body weight 68.45 kg Maldonado Raza MD Work Phone: [facility] 06-29-2023 13:48-0400 Respiratory rate 16 /min Maldonado Raza MD Work Phone: [facility] 06-12-2023 14:47-0400 Diastolic blood pressure 56 mm[Hg] Ifeoma Older DIRECTOR OF PHYSICAL EDUCATION.SCREW MACHINE OPERATOR SWISS TYPE Work Phone: [facility] 06-12-2023 14:47-0400 Heart rate 89 /min Ifeoma Older DIRECTOR OF PHYSICAL EDUCATION.SCREW MACHINE OPERATOR SWISS TYPE Work Phone: [facility] 06-12-2023 14:47-0400 Respiratory rate 14 /min Ifeoma Older DIRECTOR OF PHYSICAL EDUCATION.SCREW MACHINE OPERATOR SWISS TYPE Work Phone: [facility] 06-12-2023 14:47-0400 SaO2% (BldA) [Mass fraction] 97 % Ifeoma Older DIRECTOR OF PHYSICAL EDUCATION.SCREW MACHINE OPERATOR SWISS TYPE Work Phone: [facility] 06-12-2023 14:47-0400 Systolic blood pressure 134 mm[Hg] Ifeoma Older DIRECTOR OF PHYSICAL EDUCATION.SCREW MACHINE OPERATOR SWISS TYPE Work Phone: [facility] 05-31-2023 21:37-0400 10 1 No PCP None QS-Xrhykeynfj-KQ [facility] [employer] [facility] Work Phone: Comment on above: PHQ-9 TS 05-30-2023 15:02-0400 Body height 160.02 cm No PCP None SE-Qjeutfjhfu-EE [facility] [employer] [facility] Work Phone: 05-30-2023 15:02-0400 Body mass index (BMI) [Ratio] 27.63 kg/m2 No PCP None AA-Ujcgknovpt-AON [facility] Work Phone: 05-30-2023 15:02-0400 Body surface area Derived from formula 1.74 m2 No PCP None HT-Vguyekiwjk-JRQ [facility] Work Phone: 05-30-2023 15:02-0400 Body temperature 97.6 [degF] No PCP None NJ-Rngcmrrgun-W [facility] Work Phone: 05-30-2023 15:02-0400 Body weight 70.76 kg No PCP None LV-Owfztqtxwy-ND [facility] Work Phone: 05-30-2023 15:02-0400 Diastolic blood pressure 112 mm[Hg] No PCP None NB-Jfdnuujblq-MBF [facility] Work Phone: 05-30-2023 15:02-0400 Heart rate 104 /min No PCP None PP-Aamsneiwut-FU [facility] Work Phone: 05-30-2023 15:02-0400 Respiratory rate 18 /min No PCP None PU-Kcwgjsjxyx-I [facility] Work Phone: 05-30-2023 15:02-0400 SaO2% (BldA) [Mass fraction] 99 % No PCP None WW-Efdgsakwpr-BXJ [facility] Work Phone: 05-30-2023 15:02-0400 Systolic blood pressure 147 mm[Hg] No PCP None EU-Reyilppenu-KCH [facility] Work Phone: 05-30-2023 15:02-0400 0 1 No PCP None QV-Zcljrvabte-YP [facility] [employer] [facility] Work Phone: Comment on above: [facility] 02-01-2023 16:18-0400 Respiratory rate 16 /min YOUSUF JULIALISA DO [facility] 02-01-2023 15:44-0400 Diastolic Blood Pressure Non-Invasive 66 1 YOUSUF JULIALISA DO [facility] 02-01-2023 15:44-0400 Heart rate 76 /min YOUSUF JULIALISA DO [facility] 02-01-2023 15:44-0400 Respiratory rate 16 /min YOUSUF CROW DO [facility] 02-01-2023 15:44-0400 Systolic Blood Pressure Non-Invasive 133 1 YOUSUF CROW DO [facility] 02-01-2023 15:32-0400 Diastolic Blood Pressure Non-Invasive 67 1 YOUSUFPATTIE CROW DO [facility] 02-01-2023 15:32-0400 Heart rate 76 /min YOUSUF JULIALISA DO [facility] 02-01-2023 15:32-0400 Respiratory rate 16 /min YOUSUF JULIALISA DO [facility] 02-01-2023 15:32-0400 Systolic Blood Pressure Non-Invasive 143 1 YOUSUF JULIALISA DO [facility] 02-01-2023 15:15-0400 Diastolic Blood Pressure Non-Invasive 57 1 YOUSUF CROW DO [facility] 02-01-2023 15:15-0400 Heart rate 76 /min YOUSUF CROW DO [facility] 02-01-2023 15:15-0400 Systolic Blood Pressure Non-Invasive 132 1 YOUSUF CROW DO [facility] 02-01-2023 14:45-0400 Heart rate 79 /min YOUSUF CROW DO [facility] 02-01-2023 14:35-0400 Heart rate 77 /min YOUSUF CROW DO [facility] 02-01-2023 14:30-0400 Heart rate 77 /min YOUSUF CROW DO [facility] 02-01-2023 13:05-0400 Blood Pressure Cuff Size YOUSUF CROW DO [facility] 02-01-2023 13:05-0400 Blood Pressure Location OYUSUF CROW DO [facility] 02-01-2023 13:05-0400 Blood Pressure Method YOUSUF CROW DO [facility] 02-01-2023 11:24-0400 Blood Pressure Cuff Size YOUSUF CROW DO [facility] 02-01-2023 11:24-0400 Blood Pressure Location YOUSUF CROW DO [facility] 02-01-2023 11:24-0400 Blood Pressure Method YOUSUF CROW DO [facility] 02-01-2023 11:24-0400 Body height 160 cm YOUSUF CROW DO [facility] 02-01-2023 11:24-0400 Body temperature 97.88 [degF] YOUSUF CROW DO [facility] 02-01-2023 11:24-0400 Body weight 64.5 kg YOUSUF CROW DO [facility] 02-01-2023 11:24-0400 Body weight 25.2 kg/m2 YOUSUF TRISTIN DO [facility] 12-19-2022 15:15-0400 Body height 160 cm Lisa [place] PA-C Work Phone: [facility] 12-19-2022 15:15-0400 Body temperature 97.59 [degF] Lisa Brandon PA-C Work Phone: [facility] 12-19-2022 15:15-0400 Body weight 66.68 kg Lisa Brandon PA-C Work Phone: [facility] 12-19-2022 15:15-0400 Diastolic blood pressure 44 mm[Hg] Lisa Brandon PA-C Work Phone: [facility] 12-19-2022 15:15-0400 Heart rate 100 /min Lisa Brandon PA-C Work Phone: [facility] 12-19-2022 15:15-0400 SaO2% (BldA) [Mass fraction] 98 % Lisa Brandon PA-C Work Phone: [facility] 12-19-2022 15:15-0400 Systolic blood pressure 150 mm[Hg] Lisa [place] PA-C Work Phone: [facility] 11-15-2022 10:30-0400 Diastolic blood pressure 77 mm[Hg] Ge Fuller MD Work Phone: [facility] 11-15-2022 10:30-0400 Heart rate 72 /min Ge Fuller MD Work Phone: [facility] 11-15-2022 10:30-0400 Respiratory rate 14 /min Ge Fuller MD Work Phone: [facility] 11-15-2022 10:30-0400 SaO2% (BldA) [Mass fraction] 100 % Ge Fuller MD Work Phone: [facility] 11-15-2022 10:30-0400 Systolic blood pressure 177 mm[Hg] Ge Fuller MD Work Phone: [facility] 11-15-2022 10:00-0400 Body temperature 97.3 [degF] Ge Fuller MD Work Phone: [facility] 11-15-2022 08:10-0400 Body height 160 cm Ge Fuller MD Work Phone: [facility] 11-15-2022 08:10-0400 Body weight 67.59 kg Ge Fuller MD Work Phone: [facility] 09-20-2022 12:57-0500 Body height 160 cm Lisa [place] PA-C Work Phone: [facility] 09-20-2022 12:57-0500 Body temperature 97.9 [degF] Lisa Brandon PA-C Work Phone: [facility] 09-20-2022 12:57-0500 Body weight 67.95 kg Lisa [place] PA-C Work Phone: [facility] 09-20-2022 12:57-0500 Diastolic blood pressure 72 mm[Hg] Lisa Brandon PA-C Work Phone: [facility] 09-20-2022 12:57-0500 Heart rate 87 /min Lisa Brandon PA-C Work Phone: [facility] 09-20-2022 12:57-0500 SaO2% (BldA) [Mass fraction] 95 % Lisa Brandon PA-C Work Phone: [facility] 09-20-2022 12:57-0500 Systolic blood pressure 118 mm[Hg] Lisa Brandon PA-C Work Phone: [facility] 09-20-2022 10:59-0500 Diastolic blood pressure 50 mm[Hg] Ifeoma Older DIRECTOR OF PHYSICAL EDUCATION.SCREW MACHINE OPERATOR SWISS TYPE Work Phone: [facility] 09-20-2022 10:59-0500 Systolic blood pressure 116 mm[Hg] Ifeoma Older DIRECTOR OF PHYSICAL EDUCATION.SCREW MACHINE OPERATOR SWISS TYPE Work Phone: [facility] 09-20-2022 10:45-0500 Body weight 67.13 kg Ifeoma Older DIRECTOR OF PHYSICAL EDUCATION.SCREW MACHINE OPERATOR SWISS TYPE Work Phone: [facility] 09-20-2022 10:45-0500 Heart rate 82 /min Ifeoma Older DIRECTOR OF PHYSICAL EDUCATION.SCREW MACHINE OPERATOR SWISS TYPE Work Phone: [facility] 09-20-2022 10:45-0500 Respiratory rate 12 /min Ifeoma Older DIRECTOR OF PHYSICAL EDUCATION.SCREW MACHINE OPERATOR SWISS TYPE Work Phone: [facility] 09-19-2022 13:58-0500 Diastolic blood pressure 59 mm[Hg] Dr. Maldonado Raza Work Phone: [facility] 09-19-2022 13:58-0500 Heart rate 71 /min Dr. Maldonado Raza Work Phone: 0(814)918-053141 [place] [address] 09-19-2022 13:58-0500 Respiratory rate 16 /min Dr. Maldonado Raza Work Phone: 6(634)381-625341 [place] [address] 09-19-2022 13:58-0500 SaO2% (BldA) [Mass fraction] 100 % Dr. Maldonado Raza Work Phone: [facility] 09-19-2022 13:58-0500 Systolic blood pressure 136 mm[Hg] Dr. Maldonado Raza Work Phone: [facility] 09-19-2022 10:42-0500 Body height 157.[address] Maldonado Raza Work Phone: [facility] 09-19-2022 10:42-0500 Body mass index (BMI) [Ratio] 27.2 kg/m2 Dr. Maldonado Raza Work Phone: [facility] 09-19-2022 10:42-0500 Body temperature 96.8 [degF] Dr. Maldonado Raza Work Phone: 1(877)540-306441 [place] [address] 09-19-2022 10:42-0500 Body weight 67.[address] Maldonado Raza Work Phone: [facility] 07-05-2022 10:43-0400 Body weight 65.86 kg Helen Cuellar DIRECTOR OF PHYSICAL EDUCATION.CNM Work Phone: [facility] 07-05-2022 10:43-0400 Diastolic blood pressure 64 mm[Hg] Helen Cuellar DIRECTOR OF PHYSICAL EDUCATION.CNM Work Phone: [facility] 07-05-2022 10:43-0400 Systolic blood pressure 132 mm[Hg] Helen Cuellar DIRECTOR OF PHYSICAL EDUCATION.CNM Work Phone: [facility] 06-21-2022 14:01-0400 Body height 157.[address] Maldonado Raza Work Phone: [facility] Work Phone: 06-21-2022 14:01-0400 Body mass index (BMI) [Ratio] 27.2 kg/m2 Dr. Maldonado Raza Work Phone: [facility] 06-21-2022 14:01-0400 Body temperature 96.9 [degF] Dr. Maldonado Raza Work Phone: 3(286)546-562041 [place] [address] 06-21-2022 14:01-0400 Body weight 67.[address] Maldonado Raza Work Phone: 8(716)485-803641 [place] [address] 06-21-2022 14:01-0400 Diastolic blood pressure 59 mm[Hg] Dr. Maldonado Raza Work Phone: [facility] 06-21-2022 14:01-0400 Heart rate 116 /min Dr. Maldonado Raza Work Phone: 1(507)050-963841 [place] [address] 06-21-2022 14:01-0400 Respiratory rate 16 /min Dr. Maldonado Raza Work Phone: 2(229)795-042341 [place] [address] 06-21-2022 14:01-0400 SaO2% (BldA) [Mass fraction] 99 % Dr. Maldonado Raza Work Phone: 2(971)417-697641 [place] [address] 06-21-2022 14:01-0400 Systolic blood pressure 163 mm[Hg] Dr. Maldonado Raza Work Phone: [facility] 06-21-2022 12:34-0400 Body mass index (BMI) [Ratio] 26.5 kg/m2 Dr. Maldonado Raza Work Phone: [facility] 06-21-2022 12:34-0400 Body temperature 98.1 [degF] Dr. Maldonado Raza Work Phone: [facility] 06-21-2022 12:34-0400 Body weight 65.[address] Maldonado Raza Work Phone: [facility] 06-21-2022 12:34-0400 Diastolic blood pressure 71 mm[Hg] Dr. Maldonado Raza Work Phone: 6(660)130-805841 [place] [address] 06-21-2022 12:34-0400 Heart rate 105 /min Dr. Maldonado Raza Work Phone: [facility] 06-21-2022 12:34-0400 Respiratory rate 16 /min Dr. Maldonado Raza Work Phone: [facility] 06-21-2022 12:34-0400 SaO2% (BldA) [Mass fraction] 94 % Dr. Maldonado Raza Work Phone: [facility] 06-21-2022 12:34-0400 Systolic blood pressure 136 mm[Hg] Dr. Maldonado Raza Work Phone: [facility] 05-02-2022 14:10-0400 Diastolic blood pressure 65 mm[Hg] Maldonado Raza MD Work Phone: [facility] 05-02-2022 14:10-0400 Heart rate 102 /min Maldonado Raza MD Work Phone: [facility] 05-02-2022 14:10-0400 Systolic blood pressure 129 mm[Hg] Maldonado Raza MD Work Phone: [facility] 05-02-2022 14:06-0400 Body temperature 97 [degF] Maldonado Raza MD Work Phone: [facility] 05-02-2022 14:06-0400 Body weight 66.22 kg Maldonado Raza MD Work Phone: [facility] 05-02-2022 14:06-0400 Respiratory rate 20 /min Maldonado Raza MD Work Phone: [facility] 03-29-2022 15:06-0400 11 1 No PCP None OY-Fusigpugoy-Su th er Work Phone: Comment on above: PHQ-9 TS 03-29-2022 14:59-0400 Body height 157.48 cm No PCP None TU-Nkojmgyqcl-Wr th er Work Phone: 03-29-2022 14:59-0400 Body mass index (BMI) [Ratio] 27.01 kg/m2 No PCP None OU-Lxzarrrjih-Tarv er Work Phone: 03-29-2022 14:59-0400 Body surface area Derived from formula 1.68 m2 No PCP None EJ-Fmjbeuyhag-Hzur er Work Phone: 03-29-2022 14:59-0400 Body temperature 97.7 [degF] No PCP None UF-Inupqnikms-C ath er Work Phone: 03-29-2022 14:59-0400 Body weight 67 kg No PCP None UD-Yzccyahesz-Pz th er Work Phone: 03-29-2022 14:59-0400 Diastolic blood pressure 76 mm[Hg] No PCP None HG-Btggverxyd-Fqhr er Work Phone: 03-29-2022 14:59-0400 Heart rate 112 /min No PCP None OJ-Qyvpcpqxgo-Hl th er Work Phone: 03-29-2022 14:59-0400 SaO2% (BldA) [Mass fraction] 98 % No PCP None XM-Bxsssruynb-Otnh er Work Phone: 03-29-2022 14:59-0400 Systolic blood pressure 154 mm[Hg] No PCP None NL-Dtekdjwlgm-Olsy er Work Phone: 03-29-2022 14:59-0400 0 1 No PCP None IK-Gmgpezngra-Fg th er Work Phone: Comment on above: [facility] 11-30-2021 11:38-0400 Body height 160 cm Von Chaney PA-C Work Phone: [facility] 11-30-2021 11:38-0400 Body temperature 97.5 [degF] Von Chaney PA-C Work Phone: [facility] 11-30-2021 11:38-0400 Body weight 67.13 kg Von Chaney PA-C Work Phone: [facility] 11-30-2021 11:38-0400 Diastolic blood pressure 54 mm[Hg] Von Chaney PA-C Work Phone: [facility] 11-30-2021 11:38-0400 Heart rate 96 /min Von Chaney PA-C Work Phone: [facility] 11-30-2021 11:38-0400 Respiratory rate 16 /min Von Chaney PA-C Work Phone: [facility] 11-30-2021 11:38-0400 SaO2% (BldA) [Mass fraction] 100 % Von Chaney PA-C Work Phone: [facility] 11-30-2021 11:38-0400 Systolic blood pressure 154 mm[Hg] Von Chaney PA-C Work Phone: [facility] 02-13-2018 19:10-0400 Body surface area Derived from formula NONREACTIVE [facility] Comment on above: Order Comment: [place]: Result Comment: RESU LTS WERE OBTAINED WITH THE [employer] XP.VALUES OBTAINED WITH DIFFERENT MANUFACTURERS' ASSAY METHODSMAY NOT BE USED INTERCHANGEABLY. Performed By: #### L [id number], L500.25365 ####[facility] [id number] [place], [place] [address]Im# [phone] Encounters Encounter Date Encounter Type Care Provider Facility Start: 05-17-2025 End: 05-18-2025 Emergency department patient visit Dr. Maldonado Raza MD Work Phone: -Emergency Department Work Phone: Start: 05-13-2025 End: 05-13-2025 Office outpatient visit 25 minutes Maldonado Raza MD Work Phone: [facility] Comment on above: Physical decondition ing (Primary Dx); Encounter for immunization; Primary hypertension; Other hyperlipidemia; Hypothyroidism, unspecified type; Dyspnea on exertion; Congestive heart failure, unspecified HF chronicity, unspecified heart failure type (HCC); Hypoxia; Need for vaccination Start: 05-13-2025 End: 05-13-2025 ambulatory MALDONADO RAZA Facility:[facility] Start: 04-23-2025 End: 04-24-2025 Telephone encounter Maldonado Raza MD Work Phone: [facility] Comment on above: Patient Question r/t kidney transplant Start: 04-17-2025 End: 04-17-2025 ambulatory [facility] Start: 04-17-2025 End: 04-17-2025 Patient encounter status [facility] Work Phone: Start: 04-17-2025 End: 04-17-2025 Subsequent hospital visit by physician [facility] Comment on above: Pre-transplant evalu ation for kidney transplant Start: 03-12-2025 End: 03-12-2025 Refill Artemio Schafer MD Work Phone: [facility] Comment on above: Refill Request Start: 02-20-2025 End: 02-20-2025 ambulatory FER DURON Facility:[id number] Start: 02-20-2025 End: 02-20-2025 Office outpatient visit 40 minutes Fer Duron MD Work Phone: [facility] Comment on above: Stage 5 [...] Maldonado Raza MD Work Phone: [facility] Comment on above: Congestive heart jennifer lure, unspecified HF chronicity, unspecified heart failure type (HCC) (Primary Dx); ESRD on dialysis (HCC); Anemia of chronic renal failure, stage 5 (HCC); Hypoxia Start: 02-06-2025 End: 02-06-2025 ambulatory MALDONADO RAZA Facility:[facility] Start: 01-30-2025 Non-patient / Non-visit Dr. Kade lópez MD -[facility] Physicians Work Phone: Start: 01-29-2025 Non-patient / Non-visit Dr. Kade lópez MD -[facility] Work Phone: Start: 01-28-2025 ambulatory Lidia Garcia Facility:[facility] Start: 01-28-2025 Non-patient / Non-visit Dr. Lidia rodriguez MD -[facility] Start: 01-28-2025 ambulatory Maldonado Luz Marina Facili ty:[facility] Start: 01-28-2025 End: 01-30-2025 Evaluation and management of inpatient Dr. Kade Ricketts MD -Progressive Care Unit Work Phone: Start: 01-13-2025 End: 01-13-2025 ambulatory LUNA THOMAS Facility:[facility] Start: 01-10-2025 End: 01-10-2025 Telephone encounter Luna [...] Phone: Vascular Surgery Comment on above: Procedure (SHIRA fistu logram) Start: 12-31-2024 End: 12-31-2024 Patient encounter procedure Shay [employer] Work Phone: Start: 12-31-2024 End: 12-31-2024 ambulatory Maldonado Raza Facility:[facility] Start: 12-30-2024 End: 12-30-2024 Telephone encounter Luna Thomas MD Work Phone: Vascular Surg Dept Comment on above: Patient Update ESRD (end stage kenneth l disease) (HCC) (Primary Dx) Start: 12-27-2024 End: 12-27-2024 ambulatory MILADYS VILLANUEVA [facility] Start: 12-20-2024 End: 12-20-2024 ambulatory MALDONADO VALIENTE [facility] Start: 12-20-2024 End: 12-20-2024 Encounter for other preprocedural examination MALDONADO VALIENTE [facility] Start: 12-20-2024 End: 12-20-2024 ambulatory MALDONADO VALIENTE [facility] Start: 12-19-2024 End: 12-19-2024 Telephone encounter [...] Maldonado Raza MD Work Phone: Internal Medicine [place] Comment on above: Medication Problem Start: 12-05-2024 End: 12-05-2024 ambulatory MALDONADO RAZA Facility:[facility] Start: 12-05-2024 End: 12-05-2024 Office outpatient visit 25 minutes Maldonado Raza MD Work Phone: Internal Medicine [place] Comment on above: Controlled type 2 di abetes mellitus without complication, with long-term current use of insulin (HCC) (Primary Dx); Primary hypertension; Hypothyroidism, unspecified type; ESRD (end stage renal disease) (HCC); Congestive heart failure, unspecified HF chronicity, unspecified heart failure type ([facility]); VT (ventricular tachycardia) ([facility]); Need for vaccination; Migraine without aura, not intractable, without status migrainosus; Cervical cancer screening Start: 12-03-2024 End: 12-03-2024 ambulatory IFEOMA DEL CID Facility:[facility] Start: 12-03-2024 End: 12-03-2024 Subsequent hospital visit by physician [facility] Work Phone: Radiology Comment on above: Abnormal screening m ammogram [R92.8] Start: 11-26-2024 End: 11-27-2024 Subsequent hospital visit by physician Mary [facility] M[facility] [address] [facility] Comment on above: LVH (left ventricula r hypertrophy) due to hypertensive disease, without heart failure; Kidney transplant candidate; Coronary arteriosclerosis Refill Request Start: 11-26-2024 End: 11-26-2024 ambulatory MURTAZA CASTELLON [facility] Start: 11-25-2024 End: 11-25-2024 Refill Maldonado Raza MD Work Phone: Internal Medicine [place] Comment on above: Refill Request Start: 08-26-2024 End: 08-31-2024 Refill Maldonado Raza MD Work Phone: Internal Medicine [place] Comment on above: Refill Request Start: 08-15-2024 End: 08-15-2024 ambulatory Asuncion Rossi RN [employer] Comment on above: CDM (Community Monit oring Outreach Call) Start: 07-31-2024 End: 07-31-2024 ambulatory Asuncion Rossi RN [employer] Comment on above: CDM (Community Monit oring Outreach Call) Start: 07-30-2024 End: 07-30-2024 ambulatory Asuncion Rossi RN [employer] Comment on above: CDM (Community Monit oring Outreach Call) Start: 07-25-2024 End: 07-25-2024 Office outpatient visit 25 minutes Kade Jones MD Work Phone: [facility] [place] Comment on above: End stage renal dise ase (Multi) (Primary Dx); Encounter for therapeutic drug level monitoring Start: 07-25-2024 End: 07-25-2024 ambulatory MALDONADO RAZA [facility] Start: 07-25-2024 End: 07-25-2024 ambulatory ROLY FONTANA [facility] Start: 07-25-2024 End: 07-25-2024 Patient encounter status [address] Work Phone: Start: 07-25-2024 End: 07-25-2024 Subsequent hospital visit by physician [facility] [address] [facility] [place] Comment on above: Pre-transplant evalu ation for kidney transplant; Transient ischemic attack, remote, resolved; Other specified symptoms and signs involving the circulatory and respiratory systems Start: 07-23-2024 Encounter for prepro cedural cardiovascular examination MURTAZA CASTELLON [facility] Start: 07-23-2024 End: 07-23-2024 Office outpatient new 45 minutes Murtaza Castellon MD Work Phone: [facility] [place] Comment on above: Preop cardiovascular exam (Primary Dx); LVH (left ventricular hypertrophy) due to hypertensive disease, without heart failure; Kidney transplant candidate; Coronary arteriosclerosis Start: 07-23-2024 End: 07-23-2024 ambulatory UMRTAZA CASTELLON [facility] Start: 07-23-2024 End: 07-23-2024 Encounter for preprocedural cardiovascular examination MURTAZA CASTELLON [facility] Start: 07-23-2024 End: 07-23-2024 Patient encounter status Murtaza Castellon MD Work Phone: [facility] Start: 07-16-2024 End: 07-16-2024 ambulatory MALDONADO RAZA [facility] Start: 07-11-2024 End: 07-11-2024 Patient encounter status [address] Work Phone: Start: 07-11-2024 End: 07-11-2024 Subsequent hospital visit by physician Mary [address] [facility] Comment on above: Pre-transplant evalu ation for kidney transplant Start: 07-11-2024 End: 07-11-2024 ambulatory ROLY FONTANA [facility] Start: 07-11-2024 End: 07-11-2024 ambulatory IFEOMA DEL CID Facility:[facility] Start: 07-11-2024 End: 07-11-2024 Subsequent hospital visit by physician Screen Mammo [facility] W[facility] Mammogram Comment on above: Encounter for screen ing mammogram for breast cancer [Z12.31] Start: 07-10-2024 End: 07-10-2024 ambulatory LUNA THOMAS Facility:[facility] Start: 07-10-2024 End: 07-10-2024 Patient encounter procedure Luna Thomas MD Work Phone: Vascular Surg Dept Comment on above: Peripheral arterial disease (HCC) (Primary Dx); ESRD on dialysis (HCC) Start: 07-10-2024 End: 07-10-2024 ambulatory LUNA THOMAS Facility:[facility] Start: 07-02-2024 End: 07-02-2024 ambulatory Asuncion Rossi RN [employer] Comment on above: CDM (Community Monit oring Outreach Call ) Start: 06-25-2024 End: 06-25-2024 ambulatory Asuncion Rossi RN [employer] Comment on above: CDM (Community Monit oring Outreach Call ) Start: 06-13-2024 End: 06-13-2024 ambulatory MALDONADO RAZA Facility:[facility] Start: 06-13-2024 End: 06-13-2024 Patient encounter procedure Maldonado Raza MD Work Phone: Internal Medicine [place] Comment on above: Medicare annual well ness [...] encounter procedure Mandie Younger APRN.CNP Work Phone: [facility] Cardiology Comment on above: Congestive heart jennifer lure, unspecified HF chronicity, unspecified heart failure type (HCC) (Primary Dx); ASCVD (arteriosclerotic cardiovascular disease); Primary hypertension; Mixed hyperlipidemia; History of echocardiogram; History of cardiovascular stress test; History of carotid artery stenosis; History of diabetes mellitus; Former smoker Start: 06-11-2024 End: 06-11-2024 ambulatory MANDIE YOUNGER Facility:[id number] Start: 06-04-2024 End: 06-05-2024 Telephone encounter Christopher Snell MD Work Phone: Ophthalmology Comment on above: Appointment Start: 05-22-2024 End: 05-22-2024 ambulatory Asuncion Rossi RN [employer] Comment on above: CDM (Community Monit ori Outreach Call ) Start: 05-16-2024 End: 05-16-2024 ambulatory LUNA THOMAS Facility:[facility] Start: 05-15-2024 End: 05-15-2024 Telephone encounter Luna Thomas MD Work Phone: Vascular Surg Dept Comment on above: Appointment Patient Question Start: 05-13-2024 End: 05-13-2024 ambulatory [facility] [place] Start: 05-13-2024 End: 05-13-2024 Patient encounter procedure [facility] [place] Comment on above: DAVITA Start: 05-10-2024 End: 05-13-2024 Telephone encounter Luna Thomas MD Work Phone: Vascular Surg Dept Comment on above: Appointment Refill Request Start: 05-08-2024 End: 05-08-2024 Admission to same day surgery center Anesthesia Clearance Work Phone: [facility] Work Phone: Start: 05-08-2024 End: 05-08-2024 Patient [...] 04-24-2024 End: 04-25-2024 ambulatory Syeda Frost RN [employer] Comment on above: Community Monitoring Outreach Start: 04-22-2024 End: 04-22-2024 Telephone encounter Luna Thomas MD Work Phone: Vascular Surg Dept Comment on above: Consult (/) Start: 04-16-2024 End: 04-16-2024 Patient encounter status [facility] Work Phone: Start: 04-16-2024 End: 04-16-2024 Subsequent hospital visit by physician Mary [id number] Nm Admin Room 1 [facility] Comment on above: Arrived Pre-transplant evalu ation for kidney transplant; Coronary artery disease involving [place] heart without angina pectoris, unspecified vessel or lesion type Pre-transplant evalu ation for kidney transplant Start: 04-10-2024 ambulatory [facility] [place] Start: 04-10-2024 Patient encounter procedure Tea Tierney [facility] [place] Comment on above: Population Health Na vigation Outreach ([facility] ) Start: 03-29-2024 ambulatory Syeda Frost RN Am bulatory Care Management Comment on above: Community Monitoring Outreach Start: 02-29-2024 End: 02-29-2024 Patient encounter procedure Maldonado Raza MD Work Phone: Internal Medicine [place] Comment on above: Controlled type 2 di [...] Start: 01-24-2024 ambulatory [facility] Comment on above: Community Monitoring Outreach Start: 01-18-2024 Encounter for other preprocedural examination RAUL DUNIA [facility] Start: 01-18-2024 End: 01-19-2024 ambulatory FELICIA AVENDANO Facility:[facility] Start: 01-17-2024 Orders Only Felicia Avendano MD Work Phone: Vascular Surgery Comment on above: Pre-op testing (Prim nuvia Dx) Procedure Start: 01-17-2024 Patient encounter status Felicia Avendano MD Work Phone: [facility] Start: 01-11-2024 Telephone encounter Dialysis Vas cular Surg Dept Comment on above: Dialysis ESRD (end stage kenneth l disease) (HCC) (Primary Dx) Procedure Start: 01-09-2024 Refill Maldonado cantu MD Work Phone: Internal Medicine [place] Comment on above: Refill Request Eye drops Start: 01-08-2024 ambulatory [facility] Desai [facility] [place] Comment on above: Community Monitoring Outreach Start: 01-08-2024 Patient encounter procedure Cony dodd [facility] [place] Comment on above: DAVITA Start: 12-11-2023 Refill Héctor urena MD Work Phone: Internal Medicine [place] Comment on above: Refill Request DAVITA Community Monitoirng Outreach Start: 12-07-2023 End: 12-07-2023 Patient encounter procedure Dave Pickett DO Work Phone: [facility] Cardiology Comment on above: Abnormal EKG [...] 10-26-2023 Subsequent hospital visit by physician Analia [facility] [place] Work Phone: Radiology Comment on above: Essential hypertensi on [I10] Start: 10-26-2023 End: 10-26-2023 Patient encounter procedure Maldonado Raza MD Work Phone: Internal Medicine [place] Comment on above: Preoperative examina tion (Primary Dx); Hypothyroidism, unspecified type; Primary hypertension; Other hyperlipidemia; ESRD (end stage renal disease) (HCC); ASCVD (arteriosclerotic cardiovascular disease); Controlled type 2 diabetes mellitus without complication, with long-term current use of insulin ([facility]); History of CHF (congestive heart failure); Heart murmur, systolic; Idiopathic corneal edema of both eyes Start: 10-26-2023 End: 10-26-2023 Preprocedural examination done Maldonado Raza MD Work Phone: [facility] Work Phone: Start: 10-13-2023 Telephone encounter Héctor Cruz MD Work Phone: Ophthalmology Comment on above: Schedule Surgery Start: 10-05-2023 ambulatory Syeda Frost RN Am bulatory Care Management Comment on above: Community Monitoring Outreach Start: 09-19-2023 End: 09-19-2023 Patient encounter status [facility] Work Phone: Start: 09-19-2023 End: 09-19-2023 Subsequent hospital visit by physician Tamia Koroma [facility] Comment on above: Encounter for other preprocedural examination Start: 09-18-2023 End: 09-18-2023 Patient encounter status [facility] Work Phone: Start: 09-18-2023 End: 09-18-2023 Subsequent hospital visit by physician Tamia Sharif [facility] Comment on above: Encounter for other preprocedural examination; Cardiomyopathy in diseases classified elsewhere (CMS/HCC) Start: 09-18-2023 End: 09-19-2023 ambulatory [facility] Start: 09-18-2023 End: 09-18-2023 Encounter for other preprocedural examination [facility] Start: 07-28-2023 ambulatory Syeda Frost RN Am bulatory Care Management Comment on above: Community Monitoring Outreach Start: 07-18-2023 End: 07-18-2023 ambulatory RAUL DUQUE Facility:[facility] Start: 07-17-2023 Telephone encounter Raul Duque MD Work Phone: Vascular Surgery Comment on above: Procedure ESRD (end stage kenneth l disease) (HCC) (Primary Dx) Start: 07-03-2023 Telephone encounter Medardo ballard MD Work Phone: Vascular Surgery Comment on above: Procedure Start: 06-29-2023 End: 06-29-2023 Patient encounter procedure Maldonado Raza MD Work Phone: Internal Medicine [place] Comment on above: Hyperkalemia (Primar y Dx); Hypothyroidism, unspecified type; Abnormal EKG; Primary hypertension; Controlled type 2 diabetes mellitus without complication, with long-term current use of insulin (HCC); Need for COVID-19 vaccine Start: 06-27-2023 Telephone encounter Danita sanford MD Work Phone: DR FIORELLA GARCIA POTOMAC Comment on above: patient outreach Start: 06-27-2023 End: 06-27-2023 Patient encounter procedure Héctor Cruz MD Work Phone: Ophthalmology Comment on above: Idiopathic corneal e landon, bilateral (Primary Dx); Controlled type 2 diabetes mellitus without complication, with long-term current use of insulin (HCC); Pseudophakia; PCO (posterior capsular opacification), left; Senile nuclear cataract, right Start: 06-22-2023 ambulatory Mireya Gross RN [place] Start: 06-22-2023 Telephone encounter Medardo ballard MD Work Phone: Vascular Surgery Comment on above: Schedule Surgery Transition Of Care ( TCM initial outreach hospital discharge 06/21/23) Start: 06-20-2023 Telephone encounter Aram Eduardo MD Work Phone: [place] Provider Adult Comment on above: Hospital To Hospital (Sandy Bhatti is a 58 year old female, fistula gram scheduled today. Pt. Is complaining of SOB Pre op EKG possible inferior STEMI, medical practice manager dr. Barros was called and said no STEMI . And the EKG changes related to fluid overload. BMP K 6.2 . Procedure was canceled , nephrology will be called for HD /) Start: 06-20-2023 End: 06-21-2023 Evaluation and management of inpatient MALDONADO RAZA Facility:[facility] Start: 06-19-2023 Telephone encounter Medardo ballard MD Work Phone: Vascular Surgery Comment on above: Procedure ESRD (end stage kenneth l disease) (HCC) (Primary Dx) Start: 06-12-2023 End: 06-12-2023 Patient encounter procedure Ifeoma Older DIRECTOR OF PHYSICAL EDUCATION.SCREW MACHINE OPERATOR SWISS TYPE Work Phone: Internal Medicine [place] Comment on above: Controlled type 2 di abetes mellitus without complication, with long-term current use of insulin (HCC) (Primary Dx); ESRD on dialysis (HCC); Encounter for screening mammogram for breast cancer Start: 06-12-2023 Telephone encounter Maldonado singh MD Work Phone: Family Medicine [place] Start: 06-06-2023 Orders Only Medardo urena MD Work Phone: Vascular Surgery Comment on above: ESRD (end stage kenneth l disease) (HCC) (Primary Dx) AVF ISSUE Community Monitoring Outreach Start: 05-30-2023 Patient encounter procedure No PCP N [id number] [place] [address] Work Phone: Start: 05-28-2023 Refill Maldonado cantu MD Work Phone: Internal Medicine [place] Comment on above: Refill Request Start: 04-15-2023 Refill Maldonado cantu MD Work Phone: Internal Medicine [place] Comment on above: Refill Request Start: 04-11-2023 ambulatory Syeda Frost RN Am bulatory Care Management Comment on above: Community Monitoring Outreach Start: 04-10-2023 End: 04-11-2023 ambulatory MEDARDO ROGEL Facility:[facility] Start: 04-07-2023 Orders Only Medardo urena MD Work Phone: Vascular Surgery Comment on above: ESRD (end stage kenneth l disease) (HCC) (Primary Dx) Preop testing (Prima ry Dx) Procedure (RUE fistu lagram) Start: 04-07-2023 Patient encounter status Medardo Rogel MD Work Phone: [facility] Start: 04-05-2023 Telephone encounter Medardo ballard MD Work Phone: Vascular Surgery Comment on above: ACCESS ISSUE ESRD (end stage kenneth l disease) (HCC) (Primary Dx) Start: 03-27-2023 Non-patient / Non-visit Dr. Lupe Raza Work Phone: [facility] Start: 03-27-2023 End: 03-27-[address] Maldonado Raza Work Phone: [facility] Work Phone: Start: 03-27-2023 End: 03-27-[address] Maldonado Raza Work Phone: [facility]-Cardiovascul [facility] Services Work Phone: Start: 02-24-2023 ambulatory Syeda Frost RN Am bulatory Care Management Comment on above: Community Monitoring Outreach Start: 02-01-2023 End: 02-01-2023 ambulatory Syeda Frost RN [employer] Management Comment on above: Community Monitoring Outreach Start: 02-01-2023 End: 02-01-2023 SAME DAY STAY YOUSUF Roberts [facility] Start: 01-02-2023 ambulatory Syeda Frost RN Am bulatory Care Management Comment on above: Community Monitoring Outreach Start: 12-19-2022 End: 12-19-2022 Patient encounter procedure Lisa Heredia PA-C Work Phone: General Surgery Comment on above: Tubular adenoma (Laura karthikeyan Dx); Family history of colon cancer; Tortuous colon Start: 12-19-2022 Telephone encounter Lisa banuelos PA-C Work Phone: General Surgery Comment on above: Information (Results to ) Start: 12-12-2022 Refill Maldonado cantu MD Work Phone: [facility] [place] Comment on above: Refill Request Start: 12-07-2022 ambulatory Syeda Frost RN Am bulatory Care Management Comment on above: Community Monitoring Outresach Start: 11-15-2022 ambulatory [facility] Facil ity:[facility] Start: 11-15-2022 Encounter for other preprocedural examination [facility] Start: 11-15-2022 End: 11-15-2022 Preprocedural examination done Ge Fuller MD Work Phone: [facility] Endoscopy Start: 11-15-2022 End: 11-15-2022 Subsequent hospital visit by physician Ge Fuller MD Work Phone: [facility] Endoscopy Comment on above: Special screening fo r malignant neoplasms, colon [Z12.11] Start: 11-14-2022 ambulatory Syeda Frost RN Am bulatory Care Management Comment on above: Community Monitoring Outreach Start: 11-11-2022 Telephone encounter Maldonado singh MD Work Phone: Internal Medicine [place] Comment on above: Medication Question Start: 10-25-2022 ambulatory Tea Tierney [facility] [place] Comment on above: Population Health Na vigation Outreach ([facility] Start: 10-13-2022 ambulatory Syeda Frost RN Am bulatory Care Management Comment on above: Community Monitoring Outreach Start: 09-20-2022 End: 09-20-2022 Patient encounter procedure Ifeoma Jennie CHOE Work Phone: Internal Medicine [place] Comment on above: Controlled type 2 di abetes mellitus without complication, with long-term current use of insulin (HCC) (Primary Dx); Urinary tract infection without hematuria, site unspecified; Essential hypertension; Hypothyroidism, unspecified type; Encounter for immunization; ESRD on dialysis ([facility]); Depression, unspecified depression type; Arteriovenous fistula, acquired ([facility]) Encounter for screen ing for malignant neoplasm of colon (Primary Dx); ESRD (end stage renal disease) ([facility]); VT (ventricular tachycardia); ASCVD (arteriosclerotic cardiovascular disease); Family history of colon cancer Start: 09-19-2022 End: 09-19-2022 Emergency department patient visit Dr. Maldonado Raza Work Phone: [facility]-Emergency Department Start: 09-13-2022 Refill Maldonado cantu MD Work Phone: Internal Medicine [place] Comment on above: Refill Request Start: 09-12-2022 Telephone encounter Raul Duque MD Work Phone: Vascular Surgery Comment on above: Procedure Start: 09-08-2022 Refill Maldonado cantu MD Work Phone: Internal Medicine [place] Comment on above: Refill Request Start: 09-07-2022 Telephone encounter Medardo ballard MD Work Phone: Vascular Surgery Comment on above: Appointment ESRD (end stage eknneth l disease) (HCC) (Primary Dx) Start: 09-06-2022 ambulatory Syeda Frost RN Am bulatory Care Management Comment on above: Community Monitoring Outreach Start: 08-23-2022 Telephone encounter Maldonado singh MD Work Phone: [facility] Comment on above: Cough; Fever Start: 08-04-2022 ambulatory Syeda Frost RN Am bulatory Care Management Comment on above: Community Monitoring Outreach Start: 07-06-2022 Telephone encounter Helen matthews APRN.CNM Work Phone: OB/Gynecology Comment on above: Results Start: 07-05-2022 Documentation procedure Mammog dmitry Coordinator [facility] Start: 07-05-2022 Letter encounter Mammography Coordinator [facility] Department Start: 07-05-2022 End: 07-05-2022 Patient encounter procedure Helen Cuellar APRN.CNM Work Phone: OB/Gynecology Comment on above: Encounter for gyneco logical examination (general) (routine) without abnormal findings (Primary Dx); Vaginal discharge Start: 07-05-2022 End: 07-05-2022 Patient encounter status Helen Cuellar DIRECTOR OF PHYSICAL EDUCATION.CNM Work Phone: OB/Gynecology Start: 07-05-2022 End: 07-05-2022 Subsequent hospital visit by physician Screen Mammo [facility] W[facility] Mammogram Comment on above: Encounter for screen ing mammogram for breast cancer [Z12.31] Start: 07-04-2022 ambulatory Santosh Landa RN Am bulatory Care Management Comment on above: Community Monitoring Outreach Start: 06-21-2022 End: 06-21-2022 Emergency department patient visit Dr. Maldonado Raza Work Phone: [facility]-Emergency Department Start: 06-21-2022 End: 06-21-[address] Maldonado Raza Work Phone: [facility] Start: 06-20-2022 Telephone encounter Medardo ballard MD Work Phone: Cardiology Comment on above: Patient Update Start: 06-16-2022 ambulatory Santosh Landa RN Am bulatory Care Management Comment on above: Community Monitoring Outreach Start: 06-08-2022 Telephone encounter Maldonado singh MD Work Phone: Internal Medicine [place] Comment on above: Results Procedure Instructio ns Start: 06-07-2022 Refill Maldonado cantu MD Work Phone: Internal Medicine [place] Comment on above: Refill Request Start: 06-01-2022 Orders Only Medardo urena MD Work Phone: Vascular Surgery Comment on above: ESRD (end stage kenneth l disease) (HCC) (Primary Dx) Dialysis Start: 05-02-2022 End: 05-02-2022 Patient encounter procedure Maldonado Raza MD Work Phone: Internal Medicine [place] Comment on above: Screening for cervic al [...] ne w 60 minutes No PCP None BX-Mtjtcecjau-Aapnwk Work Phone: Start: 03-29-2022 Patient encounter procedure No PCP N one QM-Befpufdsjx-Caoluw Work Phone: Start: 03-18-2022 ambulatory Santosh Landa [...] Maldonado cantu MD Work Phone: Internal Medicine [facility] Start: 01-27-2022 ambulatory Santosh Landa RN Am bulatory Care Management Comment on above: Community Monitoring Outreach (ESRD Telephonic CDM Outreach) Start: 01-13-2022 Refill Maldonado cantu MD Work Phone: Internal Medicine [place] Comment on above: Refill Request Start: 01-12-2022 ambulatory Santosh Landa RN Am bulatory Care Management Comment on above: Community Monitoring Outreach (ESRD CDM Outreach) Start: 01-10-2022 Telephone encounter Harvey petersen RN Transplant Center [...] End: 12-06-2021 Subsequent hospital visit by physician Ct [facility], [facility] Wstr (I-Stat) Work Phone: Cat Scan Comment on above: Gross hematuria [R31 .0] Start: 11-30-2021 End: 11-30-2021 Patient encounter procedure Von Chaney PA-C Work Phone: Urology Comment on above: Acute cystitis with hematuria (Primary Dx); Acute left flank pain; Gross hematuria; Other symptoms and signs involving the genitourinary system Start: 07-24-2018 Evaluation and manag ement of inpatient Héctor T Javier Facility:[facility] Start: 05-16-2018 Evaluation and manag ement of inpatient Héctor T Javier Facility:[facility] Start: 05-11-2018 End: 05-15-2018 Evaluation and management of inpatient Anderson M Joanne Facility:[facility] Start: 05-01-2018 Evaluation and manag ement of inpatient Héctor T Javier Facility:[facility] Start: 03-20-2018 Evaluation and manag ement of inpatient Héctor T Javier Facility:[facility] Start: 02-13-2018 End: 02-16-2018 Evaluation and management of inpatient Jehad Y Asfoura Facility:[facility] Start: 12-13-2017 Evaluation and manag ement of inpatient Héctor T Javier Facility:[facility] Start: 12-05-2017 Evaluation and manag ement of inpatient Héctor T Javier Facility:[facility] Start: 11-27-2017 Ambulatory HÉCTOR T JAVIER Facility :[facility] Start: 10-04-2017 Evaluation and manag ement of inpatient Héctor T Javier Facility:[facility] Start: 09-18-2017 Ambulatory JEHAD Y ASFOURA Facilit y:UNI Patient encounter status No PCP None MG- Transplant-Jacobo Work Phone: Procedures Date Procedure Procedure Detail Performing Clinician Start: 05-17-[address] Maldonado Raza MD Work Phone: Start: 05-17-2025 CT of abdomen and pelvis without contrast Dr. Maldonado Raza MD Work Phone: Start: 04-17-2025 Pulmonary stress testing Roly Fontana [...] time with image limited Ifeoma Del Cid APRN.SCREW MACHINE OPERATOR SWISS TYPE Work Phone: Start: 12-03-2024 End: 12-03-2024 Digital breast tomosynthesis bilateral Ifeoma Del Cid APRN.SCREW MACHINE OPERATOR SWISS TYPE Work Phone: Start: 11-26-2024 Cardiac mri w/wo [...] Murtaza Castellon MD Work Phone: Start: 06-13-2024 PFIZER-BIONTECH COVID-19 VACCINE AGE 12+ YR (COMIRNATY) Maldonado Raza MD Work Phone: Start: 06-13-2024 Adult depression screening assessment Maldonado Raza MD Work Phone: Start: 06-11-2024 Ecg routine ecg w/least 12 lds i&r only Mandie Younger APRN.SCREW MACHINE OPERATOR SWISS TYPE Work Phone: Start: 04-16-2024 Cv strs tst [...] Roly Fontana MD Work Phone: Start: 06-29-2023 PFIZER-BIONTPassado COVID-19 VACCINE (2022- SEASON) AGE 12+ YR Maldonado Raza MD Work Phone: Start: 06-27-2023 Computerized corneal topography uni/bi Héctor Cruz MD Work Phone: Start: 06-27-2023 End: 06-27-2023 Computerized ophthalmic imaging retina Héctor Cruz MD Work Phone: Start: 06-20-2023 Antibody screen RAUL DUQUE Comment on above: Order Comment: Specimen Type: BLOOD SPEC IMENOrdering Facility: [facility] Address: [address] [place] [address] Performed By: #### T SCR ####JOSE BLOOD BANKCLIA [id number] [place] [address] [place] Start: 11-15-2022 Gluc bld gluc mntr dev cleared fda spec home use Nikhil Dinero MD Work Phone: Start: 11-15-2022 Colonoscopy flx dx w/collj spec when pfrmd Lisa Heredia PA-C Work Phone: Start: 11-15-2022 Gluc bld gluc mntr dev cleared fda spec home use Nikhil Dinero MD Work Phone: Start: 11-15-2022 Colonoscopy Ge Fuller MD Work Phone: Start: 09-20-2022 PFIZER-BIONTPassado COVID-19 PRIMARY SERIES VACCINE, AGE 12+ YR Ifeoma Older DIRECTOR OF PHYSICAL EDUCATION.SCREW MACHINE OPERATOR SWISS TYPE Work Phone: Start: 09-20-2022 INFLUENZA VACCINE QUADRIVALENT 6 MO - 64 YRS IM Ifeoma Older DIRECTOR OF PHYSICAL EDUCATION.SCREW MACHINE OPERATOR SWISS TYPE Work Phone: Start: 09-19-2022 CT of abdomen [...] Héctor Herrera Comment on above: Order Comment: Hague: Start: 05-11-2018 Electrocardiogram Héctor Herrera Start: 05-10-[address] (I-Stat) Work Phone: Start: 02-13-2018 Ecg routine ecg w/least 12 lds i&r only Héctor Herrera Start: 10-04-2017 Antibody screen Héctor Herrera Comment on above: Order Comment: Hague: MPatient transfus ed or in the past 3 months? NOIs This Patient Going To Surgery? YSurgery Date: 10/04/17 Start: 10-04-2017 Ecg routine ecg w/least 12 lds i&r only Héctor Herrera Start: 09-05-2017 Arteriovenous fistula (morphologic abnormality) YOUSUF CROW DO Comment on above: left Start: 01-03-2007 Colostomy YOUSUF CROW DO Comment on above: reversal Start: 01-03-2006 Colostomy YOUSUF CROW DO Start: 01-03-1991 Hysterectomy YOUSUF CROW DO Start: 01-04-1984 Appendectomy YOUSUF CROW DO Start: 01-04-1984 Cholecystectomy YOUSUF CROW DO Start: 01-03-1980 Reduction mammoplasty, bilateral YOUSUF CROW DO Arteriovenous anastomosis No PCP None Cholecystectomy [...] DTaP/Tdap/Td Vaccines (3 - Td or Tdap) [facility] Start: 12-31-2034 Urine microalbumin profile DTaP,Tdap,Td Vaccine (3 - Td or Tdap) [facility] Start: 11-15-2032 Screening for malignant neoplasm of colon [facility] Start: 01-19-2029 PNEUMOCOCCAL (4 - PPSV23 if available, else PCV20) PNEUMOCOCCAL (4 - PPSV23 if available, else PCV20) [facility] Start: 01-19-2029 PNEUMOCOCCAL (4 - PPSV23 or PCV20) PNEUMOCOCCAL (4 - PPSV23 or PCV20) [facility] Start: 01-19-2029 Pneumococcal vaccination [facility] Start: 01-19-2029 Pneumococcal Vaccine: Pediatrics (0 to 5 Years) and At-Risk Patients (6 to 64 Years) (4 - PPSV23 or PCV20) Pneumococcal Vaccine: Pediatrics (0 to 5 Years) and At-Risk Patients (6 to 64 Years) (4 - PPSV23 or PCV20) [facility] Start: 01-02-2027 Glaucoma screening Diabetes: Retinopathy Screening [facility] Start: 05-13-2026 Annual PCP Team Chronic Disease Visit Annual PCP Team Chronic Disease Visit [facility] Start: 05-13-2026 Hepatitis B Vaccine (2 of 2 - Risk Dialysis 4-dose series) Hepatitis B Vaccine (2 of 2 - Risk Dialysis 4-dose series) [facility] Start: 02-06-2026 Annual PCP Team Chronic Disease Visit Annual PCP Team Chronic Disease Visit [facility] Start: 02-06-2026 BP Controlled (<130/80) BP Controlled (<130/80) [facility] in Start: 01-02-2026 Glaucoma screening Dilated Retinal Exam [facility] Start: 12-19-2025 Complete blood count Hemoglobin/Hematocrit [facility] Start: 12-19-2025 Creatinine measurement [facility] Start: 12-19-2025 Hepatitis B surface antibody level LDL Cholesterol [facility] Start: 12-19-2025 Lipid panel Lipid Panel [facility] Start: 12-05-2025 Annual PCP Team Chronic Disease Visit Annual PCP Team Chronic Disease Visit [facility] Start: 12-05-2025 BP Controlled (<130/80) BP Controlled (<130/80) [facility] Start: 12-05-2025 Diabetic foot examination [facility] Start: 12-03-2025 Screening for malignant neoplasm of breast [facility] Start: 11-15-2025 Colonoscopy COLONOSCOPY [facility] Start: 11-15-2025 COLORECTAL CANCER SCREENING COLORECTAL CANCER SCREENING [facility] Start: 11-15-2025 Screening for malignant neoplasm of colon [facility] Start: 08-19-2025 End: 08-19-2025 Patient encounter procedure 08/19/2025 9:00 AM EST Office Visit [facility] Cardiology [address] [place] [phone] Mandie Younger APRN.[facility] [address] [place], [place] [id number] 6 month follow up [facility] Comment on above: 6 month follow up Start: 08-14-2025 End: 08-14-2025 Patient encounter procedure 08/14/2025 9:15 AM EST Office Visit [facility] Ophthalmology [address] [address] Christopher Snell MD [address] [place] [address] Diagnostics[facility] [address] [address] Uveitis follow up Ophthalmology Comment on above: Uveitis follow up Start: 08-05-2025 End: 08-05-2025 Patient encounter procedure 08/05/2025 8:40 AM EST Office Visit OB/Gynecology [address] [place] [address] Kaitlynn Winters MD [address] [place] [phone] Cervical cancer screening [Z12.4] OB/Gynecology Comment on above: Cervical cancer screening [Z12.4] Start: 07-16-2025 End: 07-16-2025 Patient encounter procedure Vascular Surgery Comment on above: esrd Start: 07-11-2025 Screening for malignant neoplasm of breast [facility] Start: 07-09-2025 Hepatitis A Vaccine (3 of 3 - Hep A Twinrix risk 3-dose series) Hepatitis A Vaccine (3 of 3 - Hep A Twinrix risk 3-dose series) [facility] Start: 07-09-2025 Hepatitis B Vaccines (3 of 3 - Hep B Twinrix 3-dose series) Hepatitis B Vaccines (3 of 3 - Hep B Twinrix 3-dose series) [facility] Start: 06-20-2025 Hemoglobin A1c measurement HbA1C [facility] Start: 06-13-2025 Annual PCP Team Chronic Disease Visit Annual PCP Team Chronic Disease Visit [facility] Start: 06-13-2025 Anxiety Screening Anxiety Screening [facility] Start: 06-13-2025 Depression Screening Depression Screening [facility] Start: 06-10-2025 End: 06-10-2025 Patient encounter procedure 06/10/2025 10:00 AM EDT Office Visit [facility] [place] [address] [place], [place] [address] Maldonado Raza MD [address] [place] [address] Medicare Wellness [facility] [place] Comment on above: Medicare Wellness Start: 06-07-2025 Glaucoma screening Dilated Retinal Exam [facility] Start: 06-03-2025 Hepatitis a & b vaccine hepa-hepb adult im HEP A-HEP B VACCINE (TWINRIX) Immunization/Injection Routine Need for vaccination Expected: 06/03/2025 (Approximate) [facility] Comment on above: Expected: 06/03/2025 (Approximate) Start: 06-02-2025 End: 09-01-2025 CBC panel - Blood by Automated count COMPLETE BLOOD COUNT Lab Routine ESRD (end stage renal disease) (HCC) Expected: 06/02/2025, Expires: 09/01/2025 [facility] Comment on above: Expected: 06/02/2025, Expires: Start: 06-02-2025 End: 09-01-2025 Comprehensive metabolic 2000 panel - Serum or Plasma COMPREHENSIVE METABOLIC PANEL Lab Routine ESRD (end stage renal disease) (HCC) Expected: 06/02/2025, Expires: 09/01/2025 [facility] Comment on above: Expected: 06/02/2025, Expires: Start: 06-02-2025 End: 09-01-2025 Hemoglobin A1c in Blood HEMOGLOBIN A1C Lab Routine Controlled type 2 diabetes mellitus without complication, with long-term current use of insulin (HCC) Expected: 06/02/2025, Expires: 09/01/2025 [facility] Comment on above: Expected: 06/02/2025, Expires: Start: 06-02-2025 End: 09-01-2025 Lipid 1996 panel - Serum or Plasma LIPID PANEL, FASTING Lab Routine Controlled type 2 diabetes mellitus without complication, with long-term current use of insulin (HCC) Expected: 06/02/2025, Expires: 09/01/2025 [facility] Comment on above: Expected: 06/02/2025, Expires: Start: 06-02-2025 End: 09-01-2025 Thyrotropin [Units/volume] in Serum or Plasma THYROID STIMULATING HORMONE Lab Routine Hypothyroidism, unspecified type Expected: 06/02/2025, Expires: 09/01/2025 [facility] Comment on above: Expected: 06/02/2025, Expires: Start: 05-17-2025 [facility] [place] [facility] Start: 05-08-2025 Complete blood count Hemoglobin/Hematocrit [facility] Start: 05-08-2025 Creatinine measurement Serum Creatinine [facility] Start: 05-05-2025 Influenza vaccination [facility] Start: 04-29-2025 End: 04-29-2025 Patient encounter procedure 04/29/2025 11:40 AM EDT Office Visit [facility] [place] [address] [place], [place] [address] Maldonado Raza MD [address] [place], [place] [phone] See phone encounter 04/23, weakness, shortness of breath [facility] [place] Comment on above: See phone encounter 04/23, weakness, shor tness of breath Start: 03-20-2025 Hemoglobin A1c measurement Diabetes: Hemoglobin A1C [facility] Start: 03-06-2025 Hepatitis B Vaccine (3 of 5 - Risk Dialysis 4-dose series) Hepatitis B Vaccine (3 of 5 - Risk Dialysis 4-dose series) [facility] Start: 03-03-2025 Influenza vaccination Influenza Vaccine (#1) [place] Fla[facility] curry Comment on above: Postponed from 05/05/2024 (Declined at t his time) Start: 02-28-2025 Annual PCP Team Chronic Disease Visit Annual PCP Team Chronic Disease Visit [facility] Start: 02-28-2025 Creatinine measurement Serum Creatinine [facility] Start: 02-28-2025 Diabetes mellitus screening Diabetes Screening [facility] Start: 02-28-2025 Hemoglobin A1c measurement Diabetes: Hemoglobin A1C [facility] Start: 02-28-2025 Hepatitis B surface antibody level LDL Cholesterol [facility] Start: 02-28-2025 Thyroid stimulating hormone measurement TSH Level [facility] Start: 02-20-2025 End: 02-20-2025 Patient encounter procedure 02/20/2025 9:00 AM EDT Office Visit [facility] [address] [place] [phone] Fer Duron MD [address] [place] [address] [address] [place], [place] [phone] [facility] f[facility] CHF [facility] Comment on above: [facility] f[facility]u [place] Start: 02-13-2025 End: 02-13-2025 Patient encounter procedure 02/13/2025 2:30 PM EDT Office Visit [facility] Ophthalmology [address] [address] Chirstopher Snell MD [address] [place] [address] Return in about 6 weeks (around 02/13/2025). Ophthalmology Comment on above: Return in about 6 weeks (around ). Start: 01-30-2025 Oxygen therapy [facility] [place] [facility] Start: 01-30-2025 Patient discharge [facility] [place] [facility] Start: 01-29-2025 Hemodialysis care [facility] [place] [facility] Start: 01-29-2025 End: 01-29-2025 [facility] [place] [facility] Start: 01-29-2025 [facility] [place] [facility] Start: 01-28-2025 End: 01-28-2025 [facility] [place] [facility] Start: 01-28-2025 Ambulation without limitation [facility] Start: 01-28-2025 Assessment of risk of venous thromboembolism [facility] [place] [facility] Start: 01-28-2025 Care regimes management [facility] Start: 01-28-2025 Catheterization of vein [facility] Start: 01-28-2025 Elevation of affected extremity [facility] Start: 01-28-2025 Inhalation therapy procedure [facility] Start: 01-28-2025 Insertion of catheter into peripheral vein [facility] Start: 01-28-2025 Measuring intake and output [facility] Start: 01-28-2025 Notification of physician [facility] Start: 01-28-2025 Oxygen therapy [facility] Start: 01-28-2025 Patient education [facility] Start: 01-28-2025 Providing care according to standard [facility] Start: 01-28-2025 Referral to trench shovel operator [facility] Start: 01-28-2025 End: 01-28-2025 [facility] [place] [facility] Start: 01-28-2025 End: 01-28-2025 Following clinical pathway protocol [facility] [place] [facility] Start: 01-28-2025 Hospital admission, emergency, from emergency room, medical nature [facility] Start: 01-28-2025 Verification routine [facility] Start: 01-28-2025 Admission procedure [facility] [place] [facility] Start: 01-28-2025 Patient referral to dietitian [facility] Start: 01-21-2025 End: 01-21-2025 Patient encounter procedure 01/21/2025 2:20 PM EDT Office Visit OB/Gynecology [address] [place] [address] Kaitlynn Winters MD [address] [place] [address] Annual OB/Gynecology Comment on above: Annual Start: 01-17-2025 Creatinine measurement Serum Creatinine [facility] Start: 01-13-2025 End: 01-13-2025 Admission to same day surgery center 01/13/2025 5:08 PM EDT - 01/13/2025 6:59 PM EDT Surgery Admitting [address] [place] [address] Luna Thomas MD [address] [place] [address] INTRO NEEDLE/CATH FOR ANGIO DIALYSIS CIRCUIT UPPER [...] 5:08 PM EDT Hospital Encounter Admitting [address] [place] [address] Luna Thomas MD [address] [place] [address] ESRD on dialysis (HCC) [N18.6, Z99.2] Admitting Comment on above: ESRD on dialysis (HCC) [N18.6, Z99.2] Start: 01-13-2025 End: 01-13-2025 Admission to same day surgery center 01/13/2025 2:43 PM EDT - 01/13/2025 4:34 PM EDT Surgery Admitting [address] [place] [address] Luna Thomas MD [address] [place] [address] INTRO NEEDLE/CATH FOR ANGIO DIALYSIS [...] 2:43 PM EDT Hospital Encounter Admitting [address] [place] [address] Luna Thomas MD [address] [place], [place] [phone] ESRD on dialysis (HCC) [N18.6, Z99.2] Admitting Comment on above: ESRD on dialysis (HCC) [N18.6, Z99.2] Start: 01-09-2025 End: 01-09-2025 Patient encounter procedure Vascular Surgery Comment on above: esrd Start: 01-07-2025 End: 01-07-2025 Nursing evaluation of patient and report [facility] [place] Comment on above: Hep B shot Twinrix #2 Start: 01-04-2025 Hepatitis a & b vaccine hepa-hepb adult im HEP A-HEP B VACCINE (TWINRIX) Immunization/Injection Routine Need for vaccination Expected: 01/04/2025 (Approximate) [facility] Comment on above: Expected: 01/04/2025 (Approximate) Start: 01-02-2025 Hepatitis A Vaccine (2 of 3 - Hep A Twinrix risk 3-dose series) Hepatitis A Vaccine (2 of 3 - Hep A Twinrix risk 3-dose series) [facility] Start: 01-02-2025 Hepatitis B Vaccine (2 of 5 - Risk Dialysis 4-dose series) Hepatitis B Vaccine (2 of 5 - Risk Dialysis 4-dose series) [facility] Start: 01-02-2025 End: 01-02-2025 Patient encounter procedure Ophthalmology Comment on above: [facility] Start: 01-01-2025 Subsequent hospital visit by physician 01/01/2025 Hospital Encounter [facility] Invasive Cardiology [address] [place] [address] [place] [address] [place] [address] ESRD (end stage renal disease) (HCC) [N18.6] [facility] Card[facility] Comment on above: ESRD (end stage renal disease) (HCC) [N1 8.6] Start: 12-31-2024 Patient referral [facility] [place] [facility] Work Phone: Start: 12-10-2024 End: 12-10-2024 Patient encounter procedure 12/10/2024 9:00 AM EDT Office Visit [facility] [address] [place] [address] Mandie Younger APRN.[facility] [address] [place], [place] [phone] 6 month follow up, ASCVD [facility] Comment on above: 6 month follow up, ASCVD Start: 12-05-2024 End: 12-05-2024 Patient encounter procedure [facility] [place] Comment on above: Medicare Wellness w/5 month follow-up [facility] Start: 12-03-2024 End: 12-03-2024 Patient encounter procedure Mammogram Comment on above: Comp- Bilat CB US BREAST LTD RIGHT Start: 11-16-2024 HPV TESTING HPV TESTING [facility] Start: 11-16-2024 Screening for malignant neoplasm of cervix HPV Testing [facility] Start: 11-06-2024 PAP TESTING PAP TESTING [facility] Start: 11-06-2024 Screening for malignant neoplasm of cervix [facility] Start: 10-26-2024 Annual PCP Team Chronic Disease Visit Annual PCP Team Chronic Disease Visit [facility] Start: 10-26-2024 Diabetic foot examination Diabetic Foot Exam [facility] Start: 10-10-2024 End: 10-10-2024 Patient encounter procedure 10/10/2024 9:15 AM EST Office Visit [facility] Ophthalmology [address] [address] Christopher Snell MD [address] [place] [address] [facility] Ophthalmology Comment on above: [facility] Start: 09-27-2024 End: 09-27-2024 Patient encounter procedure 09/27/2024 8:00 AM EST Office Visit [facility] Medicine [place] [address] [place] [address] Maldonado Raza MD [address] [place] [address] Medicare Wellness - 3 month follow-up [facility] [place] Comment on above: Medicare Wellness - 3 month follow-up Start: 09-24-2024 End: 09-24-2024 Patient encounter procedure Mammogram Comment on above: Request: [facility]UNAL DIAGNOSTIC BILATERAL Comp- Bilat CB Abnormal screening m ammogram [R92.8] Start: 09-18-2024 Echocardiography Echocardiogram [facility] Start: 09-14-2024 Annual PCP Team Chronic Disease Visit Annual PCP Team Chronic Disease Visit [facility] Start: 09-12-2024 End: 09-12-2024 Patient encounter procedure 09/12/2024 10:[address] [facility] [address] [place] [phone] [facility] Start: 09-04-2024 Medicare Advantage Annual Wellness Visit Medicare [facility] Annual Wellness Visit [facility] Start: 08-30-2024 Hemoglobin A1c measurement HbA1C [facility] Start: 08-08-2024 End: 08-08-2024 Patient encounter procedure 08/08/2024 2:30 PM EST Office Visit [facility] Ophthalmology [address] [address] Christopher Snell MD [address] [place] [address] [facility] Ophthalmology Comment on above: [facility] Start: 07-25-2024 End: 07-25-[address] [facility] [place] Start: 07-23-2024 End: 07-23-[address] [facility] Start: 07-23-2024 End: 07-23-2025 MR Heart WO and W contrast IV MR cardiac morphology and function w and wo IV contrast Imaging Routine LVH (left ventricular hypertrophy) due to hypertensive disease, without heart failure Kidney transplant candidate Coronary arteriosclerosis Expected: 07/23/2024, Expires: 07/23/2025 [facility] Service Area Work Phone: Comment on above: Expected: 07/23/2024, Expires: Start: 07-18-2024 Creatinine measurement Serum Creatinine [facility] Start: 07-18-2024 Serum Creatinine Serum Creatinine [facility] Start: 07-16-2024 End: 07-16-2024 ambulatory 07/16/2024 3:[address] [facility] [place] [address] [place] [address] [address] [place] [phone] [facility] Start: 07-11-2024 End: 07-11-2024 Patient encounter procedure 07/11/2024 3:30 PM EST Appointment [facility] [address] [place] [phone] [facility] Start: 07-11-2024 End: 07-11-2024 Patient encounter procedure 07/11/2024 9:30 AM EST Appointment Mammogram [address] [place] [address] Encounter for screening mammogram for breast cancer [Z12.31] Mammogram Comment on above: Encounter for screening mammogram for br east cancer [Z12.31] Start: 07-10-2024 End: 07-10-2024 Patient encounter procedure 07/10/2024 2:45 PM EST Office Visit Vascular Surg Dept [address] [place] [address] Luna Thomas MD [address] [place] [address] 1M POST OP RUE VENOGRAM Vascular Surg Dept Comment on above: 1M POST OP RUE VENOGRAM Start: 07-10-2024 End: 07-10-2024 Patient encounter procedure 07/10/2024 1:30 PM EST Office Visit Vascular Surgery [address] [place] [phone] RUE AVF Vascular Surgery Comment on above: RUE AVF Start: 06-29-2024 Annual PCP Team Chronic Disease Visit Annual PCP Team Chronic Disease Visit [facility] Start: 06-27-2024 Glaucoma screening Dilated Retinal Exam [facility] Start: 06-27-2024 Hepatitis C antibody, confirmatory test Dilated Retinal Exam [facility] Start: 06-21-2024 Complete blood count Hemoglobin/Hematocrit [facility] Start: 06-21-2024 Hemoglobin/Hematocrit Hemoglobin/Hematocrit [facility] Start: 06-21-2024 Serum Creatinine Serum Creatinine [facility] Start: 06-20-2024 Serum Creatinine Serum Creatinine [facility] Start: 06-13-2024 End: 06-13-2024 Patient encounter procedure 06/13/2024 3:00 PM EDT Office Visit [facility] [address] [place] [address] Maldonado Raza MD [address] [place], [place] [id number] Medicare wellness w/3 month follow-up [facility] Comment on above: Medicare wellness w/3 month follow-up Start: 06-12-2024 Annual PCP Team Chronic Disease Visit Annual PCP Team Chronic Disease Visit [facility] Start: 06-12-2024 Urine microalbumin profile DTaP,Tdap,Td Vaccine (2 - Td or Tdap) [facility] Comment on above: Postponed from 11/02/2022 (Declined at t his time) Start: 06-06-2024 End: 06-06-2024 Patient encounter procedure [facility] Comment on above: 6 month follow up, hx of ASCVD. 6 month follow up, h x of ASCVD. (MB) Start: 05-31-2024 Hemoglobin A1c measurement Diabetes: Hemoglobin A1C [facility] Start: 05-30-2024 End: 05-30-2024 Patient encounter procedure [facility] Comment on above: 3 month follow-up Medicare Wellness - 3 month follow-up Start: 05-30-2024 Creatinine measurement Creatinine Level [facility] Start: 05-30-2024 Diabetes mellitus screening Diabetes Screening [facility] Start: 05-30-2024 Potassium measurement Potassium Level [facility] Start: 05-30-2024 Serum Creatinine Serum Creatinine [facility] Start: 05-20-2024 End: 05-20-2024 Patient encounter procedure 05/20/2024 1:00 PM EDT Appointment [facility] [address] [place] [id number] [facility] Start: 05-16-2024 End: 05-16-2024 Admission to same day surgery [facility] Admitting Comment on above: VENOGRAM EXTREMITY UPPER Start: 05-16-2024 End: 05-16-2024 Anesthesia consultation 05/16/2024 10:53 AM EDT Anesthesia Event Admitting [address] [place] [address] Shahla Dueñas DO [address] [place] [address] Admitting Start: 05-16-2024 End: 05-16-2024 Slctv cath plmt saul sys 2nd order/> slctv branc [facility] Start: 05-16-2024 Subsequent hospital visit by physician Admitting Comment on above: Swelling of right upper extremity [M79.8 9] Start: 05-14-2024 End: 05-14-2024 Patient encounter procedure 05/14/2024 2:00 PM EDT Office Visit [facility] [address] [address] Héctor Cruz MD [address] [place] [address] [facility] Ophthal[facility] Comment on above: [facility] Start: 05-14-2024 End: 05-14-2024 Admission to same day surgery center 05/14/2024 10:52 AM EDT - 05/14/2024 1:22 PM EDT Surgery Admitting [address] [place] [address] Luna Thomas MD [address] [place] [address] VENOGRAM EXTREMITY UPPER Admitting Comment on above: VENOGRAM EXTREMITY UPPER Start: 05-14-2024 End: 05-14-2024 Slctv cath plmt saul sys 2nd order/> slctv branc VENOGRAM EXTREMITY UPPER Swelling of right upper extremity 05/14/2024 10:52 AM EDT [facility] Start: 05-14-2024 Subsequent hospital visit by physician 05/14/2024 10:52 AM EDT Hospital Encounter Admitting [address] [place] [address] Luna Thomas MD [address] [place] [address] Swelling of right upper extremity [M79.89] Admitting Comment on above: Swelling of right upper extremity [M79.8 9] Start: 05-08-2024 End: 05-08-2024 Patient encounter procedure Vascular Surgery Comment on above: Esrd f/u Start: 05-05-2024 Covid-19 Vaccine ( season) Covid-19 Vaccine ( season) [facility] Start: 05-05-2024 Influenza vaccination Influenza Vaccine (#1) [facility] Start: 04-10-2024 SERUM CREATININE SERUM CREATININE [facility] Start: 04-09-2024 End: 04-09-2024 Patient encounter procedure 04/09/2024 3:30 PM EDT Office Visit [facility] [address] [address] Héctor Cruz MD [address] [place] [address] [facility] Ophthalmology Comment on above: [facility] seg oct o s Start: 02-29-2024 End: 02-29-2024 Patient encounter procedure 02/29/2024 2:40 PM EDT Office Visit [facility] Medicine [facility] [address] [place] [address] Maldonado Raza MD [address] [place] [address] 3 mo f/u [facility] Comment on above: 3 mo f/u Start: 02-29-2024 End: 05-30-2024 Comprehensive metabolic 2000 panel - Serum or Plasma [facility] Work Phone: Comment on above: Expected: 02/29/2024, Expires: 4 Start: 02-29-2024 End: 05-30-2024 Hemoglobin A1c in Blood [facility] Comment on above: Expected: 02/29/2024, Expires: 4 Start: 02-29-2024 End: 05-30-2024 LIPID PANEL, NONFASTING [facility] Comment on above: Expected: 02/29/2024, Expires: 4 Start: 02-29-2024 End: 05-30-2024 Thyrotropin [Units/volume] in Serum or Plasma [facility] Comment on above: Expected: 02/29/2024, Expires: 4 Start: 02-24-2024 ANNUAL PCP TEAM CHRONIC DISEASE VISIT ANNUAL PCP TEAM CHRONIC DISEASE VISIT [facility] Start: 02-24-2024 BP CONTROLLED (<130/80) BP CONTROLLED (<130/80) [facility] Start: 02-24-2024 COVID-19 VACCINE (3 - Booster for Pfizer series) COVID-19 VACCINE (3 - Booster for Pfizer series) [facility] Comment on above: Postponed from 12/08/2022 (Declined at t his time) Start: 02-24-2024 COVID-19 VACCINE (3 - Pfizer series) COVID-19 VACCINE (3 - Pfizer series) [facility] Comment on above: Postponed from 12/08/2022 (Declined at t his time) Start: 02-24-2024 HEMOGLOBIN/HEMATOCRIT HEMOGLOBIN/HEMATOCRIT [facility] Start: 02-24-2024 Hepatitis B surface antibody level LDL CHOLESTEROL [facility] Start: 02-24-2024 SERUM CREATININE SERUM CREATININE [facility] Start: 02-13-2024 End: 02-13-2024 Patient encounter procedure 02/13/2024 1:00 PM EDT Office Visit [facility] [address] [address] Héctor Cruz MD [address] [place] [address] 3 MONTH Ophthalmology Comment on above: 3 MONTH Start: 01-25-2024 End: 01-25-2024 Patient encounter procedure 01/25/2024 10:20 AM EDT Office Visit Internal Medicine [facility] [address] [place] [address] Maldonado Raza MD [address] [place] [address] 3 month follow up [facility] Comment on above: 3 month follow up Start: 2024 RSV High Risk: (Elderly (60+) or Population) (1 - Risk 60-74 years 1-dose series) RSV High Risk: (Elderly (60+) or Population) (1 - Risk 60-74 years 1-dose series) [facility] Start: 2024 RSV patients and/or patients aged 60+ years (1 - 1-dose 60+ series) RSV patients and/or patients aged 60+ years (1 - 1-dose 60+ series) [facility] Start: 2024 RSV Vaccine (1 - 1-dose 60+ series) RSV Vaccine (1 - 1-dose 60+ series) [facility] Start: 2024 RSV Vaccine (1 - Risk 60-74 years 1-dose series) RSV Vaccine (1 - Risk 60-74 years 1-dose series) [facility] Start: 01-18-2024 End: 04-18-2024 Basic metabolic 2000 panel - Serum or Plasma BASIC METABOLIC PANEL Lab STAT Pre-op testing Expected: 01/18/2024, Expires: 04/18/2024 [facility] Work Phone: Comment on above: Expected: 01/18/2024, Expires: 4 Start: 01-18-2024 End: 01-16-2025 ECG COMPLETE ECG COMPLETE ECG STAT Pre-op testing Expected: 01/18/2024, Expires: 01/16/2025 [facility] Comment on above: Expected: 01/18/2024, Expires: 5 Start: 01-18-2024 End: 01-18-2024 Admission to same day surgery center [facility] Comment on above: PERC THROMBECTOMY/INFUSION FOR THROMBOLY SIS AV FISTULA,FLUORO GUIDED,INCLUSIVE OF RAD S&I Start: 01-18-2024 End: 01-18-2024 Perq thrmbc/nfs dialysis circuit img dx angrph PERC THROMBECTOMY/INFUSION FOR THROMBOLYSIS AV FISTULA,FLUORO GUIDED,INCLUSIVE OF RAD S&I ESRD (end stage renal disease) (HCC) 01/18/2024 1:30 PM EDT [facility] Start: 01-18-2024 Subsequent hospital visit by physician [facility] Comment on above: ESRD (end stage renal disease) (HCC) [N1 8.6] Start: 11-28-2023 Hemoglobin A1c measurement HbA1C [facility] Start: 11-28-2023 Hemoglobin A1c/Hemoglobin.total in Blood HbA1C [facility] Start: 11-16-2023 Colonoscopy COLONOSCOPY [facility] Start: 11-16-2023 COLORECTAL CANCER SCREENING COLORECTAL CANCER SCREENING [facility] Start: 09-20-2023 3 comp foot exam completed DIABETIC FOOT EXAM [facility] Start: 09-20-2023 ANNUAL PCP TEAM CHRONIC DISEASE VISIT ANNUAL PCP TEAM CHRONIC DISEASE VISIT [facility] Start: 09-20-2023 BP CONTROLLED (<130/80) BP CONTROLLED (<130/80) [facility] Start: 09-20-2023 Diabetic foot examination Diabetic Foot Exam [facility] Start: 09-20-2023 HEPATITIS A (1 of 2 - Risk 2-dose series) HEPATITIS A (1 of 2 - Risk 2-dose series) [facility] Comment on above: Postponed from 01/19/1965 (Declined at t his time) Postponed from 01/19 (Declined at this time) Start: 09-20-2023 Hepatitis A Vaccine (1 of 2 - Risk 2-dose series) Hepatitis A Vaccine (1 of 2 - Risk 2-dose series) [facility] Comment on above: Postponed from 01/19/1983 (Declined at t his time) Start: 09-20-2023 HEPATITIS B (1 of 3 - 3-dose series) HEPATITIS B (1 of 3 - 3-dose series) [facility] Comment on above: Postponed from 1964 (Declined at t his time) Start: 09-20-2023 Hepatitis B Vaccine (1 of 3 - Risk Dialysis 4-dose series) Hepatitis B Vaccine (1 of 3 - Risk Dialysis 4-dose series) [facility] Comment on above: Postponed from 1984 (Declined at t his time) Start: 09-19-2023 End: 09-19-2023 Patient encounter procedure 09/19/2023 11:15 AM EST Appointment [address] [id number] [facility] Start: 09-19-2023 End: 09-19-[address] [facility] Start: 09-13-2023 SERUM CREATININE SERUM CREATININE [facility] Start: 09-04-2023 Behavioral Health Screening Behavioral Health Screening [facility] Start: 08-25-2023 Hemoglobin A1c/Hemoglobin.total in Blood HBA1C [facility] Start: 07-18-2023 End: 10-17-2023 Basic metabolic 2000 panel - Serum or Plasma BASIC METABOLIC PNL Lab STAT ESRD (end stage renal disease) (HCC) Expected: 07/18/2023, Expires: 10/17/2023 [facility] Work Phone: Comment on above: Expected: 07/18/2023, Expires: 4 Start: 07-18-2023 End: 07-17-2024 ECG COMPLETE ECG COMPLETE ECG STAT ESRD (end stage renal disease) (HCC) Expected: 07/18/2023, Expires: 07/17/2024 [facility] Work Phone: Comment on above: Expected: 07/18/2023, Expires: 4 Start: 07-05-2023 Mammography [facility] Start: 07-05-2023 Screening for malignant neoplasm of [facility] Start: 06-29-2023 COVID-19 Vaccine (#1) COVID-19 Vaccine (#1) [facility] Start: 06-20-2023 End: 08-20-2023 Basic metabolic 2000 panel - Serum or Plasma BASIC METABOLIC PNL Lab STAT ESRD (end stage renal disease) (HCC) Expected: 06/20/2023, Expires: 08/20/2023 [facility] Work Phone: Comment on above: Expected: 06/20/2023, Expires: 3 Start: 06-20-2023 End: 06-19-2024 ECG COMPLETE ECG COMPLETE ECG STAT ESRD (end stage renal disease) (HCC) Expected: 06/20/2023, Expires: 06/19/2024 [facility] Work Phone: Comment on above: Expected: 06/20/2023, Expires: 4 Start: 06-09-2023 SERUM CREATININE SERUM CREATININE [facility] Start: 05-05-2023 Covid-19 Vaccine ( season) Covid-19 Vaccine () [facility] Start: 05-05-2023 Influenza vaccination [facility] Start: 05-02-2023 ANNUAL PCP TEAM CHRONIC DISEASE VISIT ANNUAL PCP TEAM CHRONIC DISEASE VISIT [facility] Start: 05-02-2023 BP CONTROLLED (<130/80) BP CONTROLLED (<130/80) [facility] Start: 05-02-2023 HEMOGLOBIN/HEMATOCRIT HEMOGLOBIN/HEMATOCRIT [facility] Start: 05-02-2023 Hepatitis B surface antibody level LDL CHOLESTEROL [facility] Start: 05-02-2023 SERUM CREATININE SERUM CREATININE [facility] Start: 04-10-2023 End: 06-10-2023 Basic metabolic 2000 panel - Serum or Plasma BASIC METABOLIC PNL Lab STAT ESRD (end stage renal disease) (HCC) Expected: 04/10/2023, Expires: 06/10/2023 [facility] Work Phone: Comment on above: Expected: 04/10/2023, Expires: 3 Start: 04-10-2023 End: 04-07-2024 ECG COMPLETE ECG COMPLETE ECG STAT ESRD (end stage renal disease) (HCC) Expected: 04/10/2023, Expires: 04/07/2024 [facility] Work Phone: Comment on above: Expected: 04/10/2023, Expires: Start: 12-08-2022 COVID-19 VACCINE (3 - Booster for Pfizer series) COVID-19 VACCINE (3 - Booster for Pfizer series) [facility] Start: 11-26-2022 ANNUAL PCP TEAM CHRONIC DISEASE VISIT ANNUAL PCP TEAM CHRONIC DISEASE VISIT [facility] Start: 11-16-2022 COVID-19 VACCINE (#1) COVID-19 VACCINE (#1) [facility] Comment on above: Postponed from 01/19/1969 (Declined at t his time) Postponed from 07/22 (Declined at this time) Start: 11-16-2022 COVID-19 VACCINE (1) COVID-19 VACCINE (1) [facility] Comment on above: Postponed from 01/19/1969 (Declined at t his time) Start: 11-02-2022 DTaP/Tdap/Td Vaccines (2 - Td or Tdap) DTaP/Tdap/Td Vaccines (2 - Td or Tdap) [facility] Start: 11-02-2022 Urine microalbumin profile [facility] Start: 11-01-2022 Hemoglobin A1c/Hemoglobin.total in Blood HBA1C [facility] Start: 10-11-2022 COVID-19 VACCINE (2 - Pfizer series) COVID-19 VACCINE (2 - Pfizer series) [facility] Start: 09-20-2022 End: 11-20-2022 Thyrotropin [Units/volume] in Serum or Plasma TSH BLD Lab Routine Hypothyroidism, unspecified type Expected: 09/20/2022, Expires: 11/20/2022 [facility] Work Phone: Comment on above: Expected: 09/20/2022, Expires: 3 Start: 09-04-2022 Depression Assessment Depression Assessment [facility] Start: 08-12-2022 3 comp foot exam completed DIABETIC FOOT EXAM [facility] Start: 07-05-2022 End: 09-04-2022 Microscopic observation [Identifier] in Vaginal fluid by Gram stain BACT/HARINDER VAG GRAM STAIN Microbiology Routine Vaginal discharge Expected: 07/05/2022, Expires: 09/04/2022 [facility] Work Phone: Comment on above: Expected: 07/05/2022, Expires: 3 Start: 05-05-2022 [facility]AR[facility], Provider: Rhoda Mathews, Status: Pen, Time: 1:00 PM [facility], Provider: Rhoda Mathews, Status: Pen, Time: 1:00 PM [id number] Work Phone: Start: 05-05-2022 Influenza vaccination INFLUENZA (#1) [facility] Start: 05-02-2022 End: 07-02-2022 Basic metabolic 2000 panel - Serum or Plasma [facility] Work Phone: Comment on above: Expected: 05/02/2022, Expires: 2 Start: 05-02-2022 End: 07-02-2022 CBC panel - Blood by Automated count [facility] Work Phone: Comment on above: Expected: 05/02/2022, Expires: 2 Start: 05-02-2022 End: 07-02-2022 Hemoglobin A1c in Blood [facility] Work Phone: Comment on above: Expected: 05/02/2022, Expires: 2 Start: 05-02-2022 End: 07-02-2022 LIPID PANEL, NONFASTING [facility] Work Phone: Comment on above: Expected: 05/02/2022, Expires: 2 Start: 04-23-2022 HEMOGLOBIN/HEMATOCRIT HEMOGLOBIN/HEMATOCRIT [facility] Start: 04-23-2022 SERUM CREATININE SERUM CREATININE [facility] Start: 03-30-2022 Hepatitis B surface antibody level LDL CHOLESTEROL [facility] Start: 09-30-2021 Hemoglobin A1c/Hemoglobin.total in Blood HBA1C [facility] Start: 05-05-2021 Mammography MAMMOGRAM [facility] Start: 07-09-2020 SHINGRIX VACCINE (2 of 2) SHINGRIX VACCINE (2 of 2) [facility] Start: 07-09-2020 Zoster Vaccines (2 of 2) Zoster Vaccines (2 of 2) [facility] Start: 08-14-2019 BP CONTROLLED (<130/80) BP CONTROLLED (<130/80) [facility] Start: 05-10-2019 Colonoscopy COLONOSCOPY [facility] Start: 05-10-2019 COLORECTAL CANCER SCREENING COLORECTAL CANCER SCREENING [facility] Start: 05-30-2018 Hepatitis C antibody, confirmatory test DILATED RETINAL EXAM [facility] Start: 05-31-2017 TWO PNEUMOVAX 5 YEARS APART PRIOR TO AGE 65 (#2) TWO PNEUMOVAX 5 YEARS APART PRIOR TO AGE 65 (#2) [facility] Start: 01-19-2009 COLOGUARD (FIT-DNA) COLOGUARD (FIT-DNA) [facility] Start: 01-19-[address] COLONOGRAPHY [facility] Start: 01-19-2009 FECAL OCCULT BLOOD FECAL OCCULT BLOOD [facility] Start: 01-19-2009 Screening for malignant neoplasm of colon [facility] Start: 01-19-2009 SIGMOIDOSCOPY SIGMOIDOSCOPY [facility] Start: 01-19-1985 Screening for malignant neoplasm of cervix [facility] Start: 1984 Hepatitis B Vaccine (1 of 3 - Risk Dialysis 4-dose series) Hepatitis B Vaccine (1 of 3 - Risk Dialysis 4-dose series) [facility] Start: 01-19-1983 Hepatitis A Vaccine (1 of 2 - Risk 2-dose series) Hepatitis A Vaccine (1 of 2 - Risk 2-dose series) [facility] Start: 01-19-1983 HEPATITIS B (1 of 3 - Risk 3-dose series) HEPATITIS B (1 of 3 - Risk 3-dose series) [facility] Start: 01-19-1983 Urine screening for protein [facility] Start: 01-19-1982 Anxiety Screening Anxiety Screening [facility] Start: 01-19-1982 Depression Screening Depression Screening [facility] Start: 01-19-1982 HIV SCREENING HIV SCREENING [facility] Start: 01-19-1974 Glaucoma screening Diabetes: Retinopathy Screening [facility] Start: 01-19-1965 HEPATITIS A (1 of 2 - Risk 2-dose series) HEPATITIS A (1 of 2 - Risk 2-dose series) [facility] Start: 01-19-1965 MMR Vaccines (1 of 1 - Standard series) MMR Vaccines (1 of 1 - Standard series) [facility] Start: 1964 HEPATITIS B (1 of 3 - 3-dose series) HEPATITIS B (1 of 3 - 3-dose series) [facility] Start: 1964 Hepatitis B Vaccines (1 of 3 - 3-dose series) Hepatitis B Vaccines (1 of 3 - 3-dose series) [facility] Start: 1964 Lipid panel Lipid Panel [facility] Start: 1964 Medicare Annual Wellness Visit Medicare Annual Wellness Visit (AWV) [facility] Start: 1964 Screening for malignant neoplasm of colon [facility] Start: 1964 Thyroid stimulating hormone measurement TSH Level [facility] End: 04-16-2024 CT Abdomen WO contrast [facility] Work Phone: Comment on above: Once for 1 Occurrences starting 04/16/20 until 04/16/2024 End: 07-11-2024 CT for calcium scoring WO contrast and CTA W contrast IV Heart and coronary arteries [facility] Work Phone: Comment on above: Once for 1 Occurrences starting 07/11/20 until 07/11/2024 ECG 12 lead (Clinic Performed) ECG 12 lead (Clinic Performed) ECG Routine Preop cardiovascular exam 07/23/2024 4:00 PM EST [facility] Work Phone: ECG COMPLETE ECG COMPLETE ECG Routine Abnormal EKG 12/07/2023 10:06 AM EDT [facility] Work Phone: ECG COMPLETE ECG COMPLETE ECG Routine ASCVD (arteriosclerotic cardiovascular disease) 06/11/2024 7:07 AM EDT [facility] Work Phone: ECG COMPLETE ECG COMPLETE ECG Routine 02/20/2025 9:00 AM EDT [facility] Work Phone: End: 10-26-2024 Echocardiography ECHO Cardiology Routine Heart murmur, systolic 1 Occurrences starting 10/26/2023 until 10/26/2024 [facility] Work Phone: Comment on above: 1 Occurrences starting 10/26/2023 until 10/26/2024 End: 06-26-2026 FLUORESCEIN ANGIOGRAPHY OU (BOTH EYES), TRANSIT OS (LEFT EYE) FLUORESCEIN ANGIOGRAPHY OU (BOTH EYES), TRANSIT OS (LEFT EYE) [facility] Imaging Routine Controlled type 2 diabetes mellitus without complication, with long-term current use of insulin (HCC) Status post corneal transplant 1 Occurrences starting 01/02/2025 until 06/26/2026 [facility] Work Phone: Comment on above: 1 Occurrences starting 01/02/2025 until 06/26/2026 Hemoglobin A1c/Hemoglobin.total in Blood HEMOGLOBIN A1C (POC) Lab Routine Controlled type 2 diabetes mellitus without complication, with long-term current use of insulin (HCC) Ordered: 12/05/2024 [facility] Work Phone: Comment on above: Ordered: 12/05/2024 End: 07-11-2024 KUNAL SCREENING KUNAL SCREENING Radiology Routine Encounter for screening mammogram for breast cancer 1 Occurrences starting 06/12/2023 until 07/11/2024 [facility] Work Phone: Comment on above: 1 Occurrences starting 06/12/2023 until 07/11/2024 MG Breast Screening KUNAL SCREENIN G Radiology Routine Encounter for screening mammogram for breast cancer 07/11/2024 9:46 AM EST [facility] Work Phone: End: 09-19-2023 NM Heart Perfusion W stress and W radionuclide IV Nuclear Stress Test Cardiac Nuclear Medicine Routine Encounter for other preprocedural examination Once for 1 Occurrences starting 09/19/2023 until 09/19/2023 [facility] Service Area Work Phone: Comment on above: Once for 1 Occurrences starting 09/19/19 24 until 09/19/2023 Patient Education [facility] Work Phone: Patient referral [facility] Work Phone: Perq thrmbc/nfs dial ysis circuit img dx angrph PERC THROMBECTOMY/INFUSION FOR THROMBOLYSIS AV FISTULA,FLUORO GUIDED,INCLUSIVE OF RAD S&I ESRD (end stage renal disease) (HCC) [facility] CATH POST VOID RESIDUAL POST VOID RES IDUAL Procedures Routine Acute left flank pain Gross hematuria Acute cystitis with hematuria Other symptoms and signs involving the genitourinary system Ordered: 11/30/2021 [facility] Work Phone: Comment on above: Ordered: 11/30/2021 Pulmonary Stress Mey t (6 Min. Walk) Pulmonary Stress Test (6 Min. Walk) PFT Routine Pre-transplant evaluation for kidney transplant 04/17/2025 9:40 AM EDT [facility] Service Area Work Phone: End: 03-11-2023 Screening mammography bi 2-view breast inc cad KUNAL SCREENING Radiology Routine Encounter for screening mammogram for breast cancer 1 Occurrences starting 02/09/2022 until 03/11/2023 [facility] Work Phone: Comment on above: 1 Occurrences starting 02/09/2022 until 03/11/2023 SURGICAL PATHOLOGY [facility] Work Phone: Comment on above: Release Upon Ordering for 1 Occurrences starting 11/15/2022, 1 completed End: 05-01-2025 US AV fistula US A/V FISTULA GRAFT UNL [facility] Vascular Lab Routine ESRD on dialysis (HCC) 1 Occurrences starting 05/01/2024 until 05/01/2025 [facility] Work Phone: Comment on above: 1 Occurrences starting 05/01/2024 until 05/01/2025 End: 12-18-2025 US AV fistula US A/V FISTULA GRAFT [facility]L [facility] Vascular Lab Routine ESRD on dialysis (HCC) 1 Occurrences starting 12/18/2024 until 12/18/2025 [facility] Work Phone: Comment on above: 1 Occurrences starting 12/18/2024 until 12/18/2025 [facility] Immunizations Immunization Date Immunization Notes Care Provider Fa cili 05-13-2025 hepatitis B vaccine, adult dosage Maldonado Raza MD Work Phone: [facility] 05-13-2025 influenza, seasonal, injectable, preservative free Maldonado Raza MD Work Phone: [facility] 02-06-2025 hepatitis A and hepatitis B vaccine Maldonado Raza MD Work Phone: [facility] 12-31-2024 tetanus toxoid, redu amor diphtheria toxoid, and acellular pertussis vaccine, adsorbed Dr. Maldonado Raza MD Work Phone: [facility] 12-05-2024 hepatitis A and hepatitis B vaccine Maldonado Raza MD Work Phone: [facility] 06-13-2024 COVID-19 vaccine, ag e 12+ yr (PFIZER-BIONTECH [facility]) Maldonado Raza MD Work Phone: [facility] 06-29-2023 COVID-19 vaccine, ag e 12+ yr, season ([employer]) Maldonado Raza MD Work Phone: [facility] Work Phone: 06-01-2023 influenza, injectabl e, quadrivalent, preservative free Maldonado Raza MD Work Phone: [facility] Work Phone: 06-01-2023 influenza virus vaccine, unspecified formulation Syeda Frost RN [facility] 10-13-2022 Covid (Pfizer) Dr. Maldonado Raza MD Work Phone: [facility] 10-13-2022 COVID-19 original vaccine, age 12+ yr, monovalent (PFIZER-BIONTECH - DIMAS TOP) Syeda Frost RN [facility] Work Phone: Comment on above: Result Comment: 2022: TPV50 10-12-2022 pneumococcal conjuga te (PCV20) vaccine, 20 valent (PREVNAR 20) Maldonado Raza MD Work Phone: [facility] 09-20-2022 Covid (Pfizer) Dr. 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 Maldonado Raza MD Work Phone: [facility] 11-16-2021 pneumococcal conjuga te vaccine, [address] (I-Stat) Work Phone: [facility] 10-11-2021 pneumococcal conjuga te (PCV20) vaccine, 20 valent (PREVNAR 20) Maldonado Raza MD Work Phone: [facility] 06-25-2021 influenza, seasonal, injectable Ct (I-Stat) Work Phone: [facility] Work Phone: 06-05-2020 influenza, seasonal, injectable Ct (I-Stat) Work Phone: [facility] Work Phone: 05-15-2020 tuberculin skin test ; purified protein derivative solution, intradermal Luna Thomas MD Work Phone: [facility] 05-14-[address] (I-Stat) Work Phone: [facility] Work Phone: 06-22-2019 influenza virus vaccine, unspecified formulation YOUSUF CROW DO [facility] 06-22-2019 influenza, injectabl e, quadrivalent, preservative free Dr. Maldonado Raza MD Work Phone: [facility] 06-22-2019 influenza, seasonal, injectable Ct (I-Stat) Work Phone: [facility] 06-19-2019 tuberculin skin test ; purified protein derivative solution, intradermal Luna Thomas MD Work Phone: [facility] 09-21-2018 tuberculin skin test ; purified protein derivative solution, intradermal Luna Thomas MD Work Phone: [facility] 06-04-2018 influenza nasal, unspecified formulation Ct (I-Stat) Work Phone: [facility] Work Phone: 06-04-2018 influenza virus vaccine, unspecified formulation YOUSUF CROW DO [facility] 06-04-2018 Influenza, injectabl e, [facility]ney, preservative free, quadrivalent No PCP None [id number] her Work Phone: 03-09-2018 tuberculin skin test ; purified protein derivative solution, intradermal Luna Thomas MD Work Phone: [facility] 02-23-2018 tuberculin skin test ; purified protein derivative solution, intradermal Luna Thomas MD Work Phone: [facility] 06-22-2017 influenza nasal, unspecified formulation Ct (I-Stat) Work Phone: [facility] Work Phone: 06-22-2017 influenza virus vaccine, unspecified formulation YOUSUF CROW DO [facility] 06-22-2017 influenza, injectabl e, quadrivalent, preservative free Dr. Maldonado Raza MD Work Phone: [facility] 06-22-2017 influenza, seasonal, injectable Ct (I-Stat) Work Phone: [facility] Work Phone: 07-06-2015 influenza virus vaccine, unspecified formulation YOUSUF CROW DO [facility] 07-06-2015 influenza, injectabl e, quadrivalent, contains preservative Ct (I-Stat) Work Phone: [facility] 07-06-2015 influenza, injectabl e, quadrivalent, preservative free Dr. Maldonado Raza MD Work Phone: [facility] 07-06-2015 influenza, seasonal, injectable No PCP None [id number]-Uls her Work Phone: 09-04-2014 pneumococcal polysaccharide vaccine, [address] (I-Stat) Work Phone: [facility] Work Phone: 06-05-2014 influenza virus vaccine, unspecified formulation YOUSUF JULIALISA DO [facility] 06-05-2014 influenza, injectabl e, quadrivalent, preservative free Dr. Maldonado Raza MD Work Phone: [facility] 06-05-2014 influenza, seasonal, injectable Ct (I-Stat) Work Phone: [facility] 06-07-2013 influenza virus vaccine, unspecified formulation Ct (I-Stat) Work Phone: [facility] Work Phone: 11-02-2012 tetanus toxoid, redu amor diphtheria toxoid, and acellular pertussis vaccine, adsorbed Ct (I-Stat) Work Phone: [facility] Work Phone: 05-31-2012 influenza virus vaccine, unspecified formulation Ct (I-Stat) Work Phone: [facility] 05-31-2012 pneumococcal polysaccharide vaccine, [address] (I-Stat) Work Phone: [facility] NEGATED: Highlighted row has not occurred!05-17-2019 influenza, injectable, quadrivalent, preservative free Ct (I-Stat) Work Phone: [facility] Comment on above: Deferred: Patient Re fused - flu vaccine nursing protocol Payers Date Payer Category Payer Self-pay [id number] 2023 Private Health Insurance [facility] DUAL COMPLETE [facility] DUAL COMPLETE [id number] 2023-Present [address] [address] [place] [address] [id number] 2022 Medicare (Managed Care) 1.2. [id number] 2022 Dual Eligibility Medicare/Medicaid Organization [id number] 2022 Private Health Insurance [id number] 2018 Medicaid MEDICAID [facility] MEDICAID [id number] 2018-Present [phone] [address] [place] [address] Medicaid [id number] 2018 Medicaid [id number] 2017 Medicaid [id number] 2017 Medicare MEDICARE MEDICAR E A AND B [id number] 2017-Present [phone] [address] [address] [place] [address] Medicare [id number] 2017 Medicare [id number] 1.13.159.2 .[id number] 2012 Medicare [id number] 1965 Unknown [id number] 2.16.840.1.646103.3.579.2 .627 1965 Unknown [id number] 2.16840.1.580570.3.579.2 .1242 1965 Unknown [id number] 2.16840.1.933016.3.579.2 .1242 1965 Unknown [id number] 2.0.1.271316.3.579.2 .1244 1965 Unknown [id number] 2.840.1.686300.3.579.2 .1244 1965 Unknown [id number] 2.0.1.362981.3.579.2 .1244 1965 Unknown [id number] 2.0.1.349354.3.579.2 .1244 1965 Unknown [id number] 2.840.1.117054.3.579.2 .1244 1964 Unknown [id number] 2.840.1.389803.3.579.2 .1244 1964 Unknown [id number] 2.840.1.729318.3.579.2 .1244 1965 Unknown [id number] 2.840.1.634749.3.579.2 .1244 1965 Unknown [id number] 2.16840.1.850608.3.579.2 .1244 1965 Unknown [id number] 2.840.1.679810.3.579.2 .124 Medicare MEDICARE PART A B [id number] Unknown [id number] 2.16.840.1.823873.3.579.2 .273 Unknown [id number] 2.16.840.1.395724.3.579.2 .273 Unknown [id number] 2.16.840.1.160991.3.579.2 .273 Unknown [id number] 2.16.840.1.530270.3.579.2 .273 Unknown [id number] 2.16.840.1.033171.3.579.2 .273 Unknown [id number] 2.16.840.1.684290.3.579.2 .273 Unknown [id number] 2.16.840.1.313545.3.579.2 .273 Unknown [id number] 2.16.840.1.577850.3.579.2 .273 Unknown [id number] 2.16840.1.229228.3.579.2 .273 Unknown Unknown [facility] *DO NOT USE* [id number] Unknown [id number] 2.840.1.063914.3.579.2 .462 Unknown [id number] 2.840.1.443864.3.579.2 .462 Unknown [id number] 2.840.1.877866.3.579.2 .462 Unknown [id number] 2.840.1.410008.3.579.2 .462 Unknown [id number] 2.840.1.457883.3.579.2 .462 Unknown [id number] 2.840.1.441596.3.579.2 .462 Social History Date Type Detail Facility Start: 03-22-2012 End: 05-17-2025 Tobacco smoking status NHIS Ex-smoker [facility] Start: 09-04-2002 End: 09-04-2005 History of tobacco use Current smoker [facility] Start: 09-04-2002 End: 09-04-2005 History of tobacco use Cigarette Smoker [facility] Start: 11-30-2021 End: 02-20-2025 Alcohol intake Current non-drinker of alcohol (finding) [facility] Start: 1965 Sex Assigned At Not on file [facility] Start: 11-22-2021 End: 11-26-2024 Exposure to SARS-CoV-2 (event) Not sure [facility] Work Phone: Start: 03-22-2012 End: 02-16-2023 Former smoker Former smoker [facility] Work Phone: Start: 03-22-2012 End: 05-08-2024 Tobacco use and exposure Smokeless tobacco non-user [facility] Work Phone: Start: 05-02-2022 Tobacco Comment quit march 10 [facility] Start: 06-21-2022 End: 09-19-2022 Tobacco smoking status NHIS Unknown if ever smoked [facility] Start: 09-06-2019 Spouse/ Signif icant Other [facility] Start: 01-11-2021 Non-smoker [facility] Start: 1965 Sex Assigned At Female W [facility] Sex Assigned At Sex [facility] Start: 02-16-2023 End: 02-23-2023 Tobacco use panel [facility] Work Phone: Start: 08-05-2012 End: 07-30-2022 Adult Depression Screening Assessment 0 [facility] Work Phone: (I/We) worried dale er (my/our) food would run out before (I/we) got money to buy more. Never true [facility] Has the [employer], [employer], or [employer] threatened to shut off services in your home in past 12Mo No [facility] Are you now , , , , never or living with a partner? [facility] How often to you hav e a drink containing alcohol? Never [facility] How hard is it for y ou to pay for the very basics like food, housing, medical care, and heating Somewhat hard [facility] Do you feel stress - tense, restless, nervous, or anxious, or unable to sleep at night because your mind is troubled all the time - these days [OSQ] To some extent [facility] The food that (I/we) bought just didn't last, and (I/we) didn't have money to get more. Often true [facility] Start: 07-23-2024 Alcoholic beverage intake Lifetime non-drinker (finding) [facility] Work Phone: Medical Equipment Procedure Code Equipment Code Equipment Origin al Text Equipment Identifier Dates Graft 6mm Standa rd Wall Cotton Plant-Dae 40cm Vascular Line Sterile Latex Free - [id number] Start: 10-03-2019 Graft 8mm Thin W all Cotton Plant-Dae 40cm 30cm Vascular Stretch Removable Ring Line - [id number] Start: 04-21-2021 Advanta Slider G ds 4-7mm X 45cm Sw Sh [id number] Start: 04-21-2021 Comment on above: Description: TEETEE Oneill Graft Flair 8mm 9fr Flared Eptfe Carbon 50mm 80cm Endovascular Self - [id number] Start: 05-15-2019 [id number], [id number], [id number], [id number], [id number] Start: 04-05-2017 End: 12-05-2024 Comment on above: [...] Start: 12-09-2018 Cornea Tissue Pre-Loaded Dmek - [id number] Start: 11-09-2023 Gas Ispan Constellation Intraocular Vision System Sf6 125gm - [id number] Start: 11-09-2023 Comment on above: Description: 20% Graft Fluency Pl us 10mm 9fr Eptfe Carbon 80mm 117cm Stent 2 Layer Kink - [id number] Start: 05-16-2024 PATCH,VASC .8CM X 8CM FDA [...] Assessment Result Facility 01-30-2025 Functional status Ambulates [facility] Work Phone: 01-13-2025 Are you deaf, or do you have serious difficulty hearing No 01/13/2025 10:10 PM Josefina Anglin RN [facility] 01-13-2025 Are you blind, or do you have serious difficulty seeing, even when wearing glasses No 01/13/2025 10:10 PM Josefina Anglin RN No [facility] 01-13-2025 Do you have serious difficulty walking or climbing stairs No 01/13/2025 10:10 PM Josefina Anglin RN No [facility] 01-13-2025 Do you have difficul ty dressing or bathing No 01/13/2025 10:10 PM Josefina Anglin RN [facility] 01-13-2025 Because of a physica l, mental, or emotional condition, do you have difficulty doing errands alone such as visiting a physician's office or shopping No 01/13/2025 10:10 PM Josefina Anglin RN No [facility] 06-21-2023 Are you deaf, or do you have serious difficulty hearing No 06/21/2023 6:39 PM Kaitlynn Jamil RN [facility] 06-21-2023 Are you blind, or do you have serious difficulty seeing, even when wearing glasses No 06/21/2023 6:39 PM Kaitlynn Jamil RN No [facility] 06-21-2023 Do you have serious difficulty walking or climbing stairs No 06/21/2023 6:39 PM EDT Kaitlynn Barger RN No [facility] 06-21-2023 Do you have difficul ty dressing or bathing No 06/21/2023 6:39 PM EDT Kaitlynn Barger RN No [facility] 06-21-2023 Because of a physica l, mental, or emotional condition, do you have difficulty doing errands alone such as visiting a physician's office or shopping No 06/21/2023 6:39 PM EDT Kaitlynn Barger RN No [facility] 02-01-2023 Functional Status Room check performed [facility] 02-01-2023 Functional Status NPO Status confirmed [facility] 02-01-2023 Functional Status [facility] 03-29-2022 PHQ-9 [id number] Moder ate (06-17) [id number] Work Phone: Mental Status Date Assessment Result Facility 01-30-2025 Cognitive function Voice/Name [facility] Work Phone: 01-13-2025 Because of a physica l, mental, or emotional condition, do you have serious difficulty concentrating, remembering, or making decisions No 01/13/2025 10:10 PM EDT Josefina Reaves RN No [facility] 06-21-2023 Because of a physica l, mental, or emotional condition, do you have serious difficulty concentrating, remembering, or making decisions No 06/21/2023 6:39 PM EDT Kaitlynn Barger RN No [facility] 02-01-2023 Mental Status Orientation Oriented x 4 [facility] 02-01-2023 Mental Status [facility] 02-01-2023 Mental Status [facility] 09-19-2022 Cognitive function Level Of Cons ciousness Awake;Alert;Appropriate;Fol lows Commands [facility] Work Phone: Clinical Notes 02-14-2018 to 05-17-2025 Maldonado Raza MD - 05/13/2025 9:40 AM EDTTelephone Encounter - Edie Samayoa Ayanna, FIORELLA - 04/24/2025 8:15 AM EDTTelephone Encounter - Edie SamayoaFIORELLA - 04/24/2025 8:15 AM EDT Note Date & Type Note Facility 05-17-2025 Radiology Diagnostic study note [facility] Imaging Services [address] [place], [place] [address] Abdomen/Pelvis without Cont MR#: [id number] Acct: [id number] Name: SANDY BHATTI Rep #: [id number] : 1965 F 60 From: Cristian Winn MD PCP: Dr. Maldonado Raza MD Status: R EG ER Study:Abdomen/Pelvis without Cont Date of Exa m: 05/17/25 Exam# [id number] Ordering Dr: Karoline Ruiz DO PROCEDURE: ABDOMEN/PELVIS WITHOUT CONT 05/17/2025 REASON FOR EXAM: NAUSEA AND VOMITING TECHNIQUE: Procedure Code: CTABDPEL Modality: CT Procedure: ABDOMEN/PELVIS WITHOUT CONT Noncontrast technique limits evaluation of the abdominal and pelvic viscera. Coronal and Sagittal reconstruction series were provided. One or more dose reduction techniques were used (e.g., Automated exposure control, adjustment of the mA and/or kV according to patient size, use of iterative reconstruction technique). COMPARISON: CT abdomen and pelvis 05/31/2023 FINDINGS: Lung bases: Moderate right and small left pleural effusions with adjacent passive atelectasis. Cardiomegaly with coronary artery atherosclerotic calcifications. Liver: Normal size. No obvious mass. Gallbladder: Surgically absent. No biliary ductal dilatation. Spleen: Normal size. Pancreas: Atrophic. Adrenals: Unremarkable. Kidneys: No urolithiasis. No hydronephrosis. Bladder: Unremarkable Reproductive Organs: Prior hysterectomy. Adnexal regions are unremarkable. Bowel: Contrast is seen within the colon. A nonobstructive loop of the transverse colon is seen protruding into the ventral abdominal hernia. Appendix: The appendix is not identified. There is no inflammatory process identified in the right lower quadrant to suggest appendicitis. Lymph nodes: Unremarkable. Vasculature: Moderate atherosclerotic calcifications of the abdominal aorta and its branches. No aneurysm. Peritoneum / Retroperitoneum: No free fluid or air. Bones: No acute fractures. Abdominal wall: Decreased size of the moderate anterior abdominal wall hernia containing nonobstructed loop of the transverse colon. The hernia neck measures 2.9 x 3.7 cm and hernia sac measures 6.2 x 4[address]/Abdomen/Pelvis without Cont IMPRESSION: 1. No acute findings in the abdomen or pelvis as imaged. 2. Decreased size of the anterior abdominal wall hernia containing a nonobstructive loop of the transverse colon. 3. Moderate right and small left pleural effusions with adjacent passive atelectasis. Reading Location: [facility] CC: Dr. Donald Ruiz DO; Dr. Maldonado Raza MD ~ Yoker: Signed [facility] 05-13-2025 Note HNO ID: [id number] Author: MALDONADO RAZA MD Service: ? Author Type: Physician Type: Progress Notes Filed: 05/13/2025 09:51 Note Text: Subjective Sandy Bhatti is a 60 year old female here with spouse She had a 6 minute walk test for pre kidney transplant evaluation at [facility] on 04/17/25. She walked 198 m [...] 401.9, ICD10: I10 (more content not included)... [facility] 05-13-2025 History of Present illness Narrative Subjective Sandy Bhatti is a 60 year old female here with spouse She had a 6 minute walk test for pre kidney transplant evaluation at [facility] on 04/17/25. 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 Edie Samayoa LPN [facility] 04-24-2025 Miscellaneous Notes Patient scheduled, 04/29/2025 for [...] pcp is 06/10/25. documented in this encounter [facility] 04-23-2025 Telephone encounter Note Appointment needed 40 minutes. [facility] 04-23-2025 Telephone encounter Note Pt reports she [...] her next appt with pcp is 06/10/25. [facility] 03-12-2025 Telephone encounter Note Patient has been [...] Please advise. Thank you. Edie Samayoa LPN. [facility] 03-12-2025 Miscellaneous Notes Patient has been identified [...] Edie Samayoa LPN. documented in this encounter [facility] 02-20-2025 Note HNO ID: [id number] Author: FER DURON MD Service: ? Author [...] kidney disease) stage V requiring chronic dialysis ([facility]) 03/01/2018 Dr. Pendleton, nephrology. Congestive heart failure (HCC) Constipation Depression 09/04/2006 Encounter for screening for stenosis of carotid artery 03/27/2023 Less then 50% calcification bilaterally. ESRD on dialysis ([facility]) 05/16/2019 GERD (gastroesophageal reflux disease) Hemorrhoids History [...] COLONOSCOPY SCREENING 11/15/2022 COLOSTOMY/SKIN LEVEL CECOSTOMY 2006 5380-4412, reversed 2006 CREATION OF AVF, PERCUTANEOUS USING [...] lung cancer Coronary Artery Disease Brother dec. [place] 57 y.o. No Known Problems Maternal Grandmother No Known Problems Maternal Grandfather No Known Problems Paternal Grandmother No Known Problems Paternal Grandfather SOCIAL HISTORY: Tobacco Use: Types: Cigarettes d/c 2013 Alcohol Use: No Drug Use: No (more content not included)... 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 Pendleton, nephrology. Congestive heart failure (HCC) Constipation Depression 09/04/2006 Encounter for screening for stenosis of carotid artery 03/27/2023 Less then 50% calcification bilaterally. ESRD on dialysis ([facility]) 05/16/2019 GERD (gastroesophageal reflux disease) Hemorrhoids History [...] COLONOSCOPY SCREENING 11/15/2022 COLOSTOMY/SKIN LEVEL CECOSTOMY 2007 [id number], reversed 2007 CREATION OF AVF, PERCUTANEOUS USING [...] lung cancer Coronary Artery Disease Brother dec. [place] 57 y.o. No Known Problems Maternal Grandmother [...] A1c less than 7. Fer Duron MD [facility] Follow-up in 3 months Prior to entering [...] 51% of my time was spent with xixe-oa-dogc conversation with the patient. I have discussed the diagnosis and recommended treatment, alternative therapies and other options in detail. I've discussed the best benefit and side effects of these recommended treatments. I've attempted to answer all the questions to the patient's satisfaction and understanding. Fer Duron MD documented in this encounter [facility] 02-06-2025 Note HNO ID: [id number] Author: MALDONADO RAZA MD Service: ? Author Type: Physician Type: Progress Notes Filed: 02/06/2025 12:48 Note Text: This note was created using [employer]. Subjective Patient presents with: Hospital F/U Recording using [employer] software for draft documentation of the visit was discussed with the patient/authorized telesales representative; all questions welcomed and answered. Patient/authorized telesales representative agreed to proceed Sandy Bhatti is a 60 year old female. Pulmonary Edema: - Hospitalized at [facility] last Monday for severe dyspnea; initially [...] the feet. CHF: - Followed by a medical practice manager in [place]; has an upcoming appointment. Review of Systems [...] present. Neurological: Men (more content not included)... [facility] 02-06-2025 History of Present illness Narrative This note was created using [employer]. Subjective Patient presents with: Hospital F/U Recording using [employer] software for draft documentation of the visit was discussed with the patient/authorized telesales representative; all questions welcomed and answered. Patient/authorized telesales representative agreed to proceed Sandy Bhatti is a 60 year old female. Pulmonary Edema: - Hospitalized at [facility] last Monday for severe dyspnea; initially [...] the feet. CHF: - Followed by a medical practice manager in [place]; has an upcoming appointment. Review of Systems [...] Maldonado Raza MD documented in this encounter [facility] 01-30-2025 Progress note [facility] 01-30-2025 Discharge summary Note Date/Time January 30, 2025 9:42am [facility] Medical Records Department [address] [place] [address] Discharge Summary 01/30/25 0904 MR#: [id number] Acct: [id number] Name: SANDY BHATTI Rep #:[id number] : 1965 60 From: Kade Ricketts MD PCP: Dr. Maldonado Raza MD Status:A DM IN Location: [place] [id number] Providers Date of Admission: 01/28/25 Date [...] % (Auto) 66.4, Lymph % (Auto) 24.6, Mcnairy% (Auto) 6.3, Eos % (Auto) 1.0, Baso [...] Self Care Charges/Coding Visit Charges Inpatient E&M: 30750 Disch Hosp >30min 01/30/25 0942 <Electronically signed by Kade Ricketts MD> Cosigner Signature (if applicable): CC: Dr. Kade Ricketts MD; Dr. Maldonado Raza MD~ Signed [facility] Work Phone: 1(139) 362-212505-29-2025 Discharge summary [facility] Medical Records Department [address] [place] [address] Discharge Summary 01/30/25 0904 MR#: [id number] Acct: [id number] Name: SANDY BHATTI Rep #:[id number] : 1965 60 From: Kade Ricketts MD PCP: Dr. Maldonado Raza MD Status:A DM IN [facility] Prov[facility] Date of Admission: 01/28/25 Date [...] % (Auto) 66.4, Lymph % (Auto) 24.6, Mcnairy% (Auto) 6.3, Eos % (Auto) 1.0, Baso [...] Self Care Charges/Coding Visit Charges Inpatient E&M: 88682 Disch Hosp >30min 01/30/25941 Cosigner Signature (if applicable): CC: Dr. Kade Ricketts MD; Dr. Maldonado Raza MD~ Signed [facility]05-29-2025 [facility] Medical Records Department [address] [place] [address] Discharge Summary 01/30/25903 MR#: [id number] Acct: [id number] Name: SANDY BHATTI Rep #: [id number] : 1965 60 From: Kade Ricketts MD PCP: Dr. Maldonado Raza MD Status:ADM IN Location: [facility] [id number] Providers Date of Admission: 01/28/25 Date of Discharge: 01/30/25 Primary Care Physician: Dr. Maldonado Raza MD Consultations 01/28/25 10:37 Consult: Nephrology Routine Consulting Provider: South Vaqsues Reason for Consult: ESRD EMERGENT Consult: No [...] fistula right arm MUSCULOSKELETAL: (more content not included)...[facility] 01-29-2025 Progress note Author South Vasques [facility] Note Date/Time January 29, 2025 1:00p m [facility] Medical Records Department [address] [place] [address] Progress Note - Nephrology 01/29/25 1259 MR#: [id number] Acct: [id number] Name: SANDY BHATTI Rep #:[id number] : 1965 60 From: South galicia MD PCP: Dr. Maldonado Raza MD Status:A DM IN Location: [place] [id number]- 1 Subjective Subjective feels better Objective Data Objective [...] % (Auto) Cancelled, Lymph % (Auto) Cancelled, Mcnairy % (Auto) Cancelled, Eos % (Auto) Cancelled, [...] Drop Cells Cancelled, Ovalocytes Cancelled, Stomatocytes Cancelled, [place] Bodies Cancelled, Sterling Cells Cancelled, Bite Cells Cancelled, Crenated Cell [...] % (Auto) 61.6, Lymph % (Auto) 27.9, Mcnairy % (Auto) 7.4, Eos % (Auto) 1.0, [...] Cosigner Signature (if applicable): CC: ~ Signed [facility] Work Phone: 1(395) 940-565005-28-2025 Progress note Author Kade Ricketts [facility] Note Date/Time January 29, 2025 11:28 am [facility] Medical Records Department [address] [place] [address] Progress Note - Hospitalist 01/29/25 1126 MR#: [id number] Acct: [id number] Name: SANDY BHATTI Rep #:[id number] : 1965 60 From: Kade Ricketts MD PCP: Dr. Maldonado Raza MD Status:A DM IN Location: [place] [address]- 1 Reason for Visit Reason for Visit: Diagnoses [...] % (Auto) Cancelled, Lymph % (Auto) Cancelled, Mcnairy % (Auto) Cancelled, Eos % (Auto) Cancelled, [...] Drop Cells Cancelled, Ovalocytes Cancelled, Stomatocytes Cancelled, [place] Bodies Cancelled, Sterling Cells Cancelled, Bite Cells Cancelled, Crenated Cell [...] % (Auto) 61.6, Lymph % (Auto) 27.9, Mcnairy % (Auto) 7.4, Eos % (Auto) 1.0, [...] Subcu heparin Charges/Coding Visit Charges Inpatient E&M: 46384 Subs Hosp L2 01/29/25 1128 <Electronically signed by Kade Ricketts MD> Cosigner Signature (if applicable): CC: ~ Signed [facility] Work Phone: 1(196) 989-571605-28-2025 Progress note [facility] Medical Records Department [address] [place] [address] Progress Note - Nephrology 01/29/25 1259 MR#: [id number] Acct: [id number] Name: SANDY BHATTI Rep #:[id number] : 1965 60 From: South galicia MD PCP: Dr. Maldonado Raza MD Status:A DM IN Location: [place] [id number]- 1 Subjective Subjective feels better Objective Data Objective [...] % (Auto) Cancelled, Lymph % (Auto) Cancelled, Mcnairy % (Auto) Cancelled, Eos % (Auto) Cancelled, [...] Drop Cells Cancelled, Ovalocytes Cancelled, Stomatocytes Cancelled, [place] Bodies Cancelled, Sterling Cells Cancelled, Bite Cells Cancelled, Crenated Cell [...] % (Auto) 61.6, Lymph % (Auto) 27.9, Mcnairy % (Auto) 7.4, Eos % (Auto) 1.0, [...] Cosigner Signature (if applicable): CC: ~ Signed [facility]05-28-2025 Consult note Author Charo Pyle [facility] Note Date/Time January 29, 2025 10:34 am [facility] Medical Records Department [address] [place] [address] Consultation - Nephrology 01/28/25 1419 MR#: [id number] Acct: [id number] Name: SANDY BHATTI Rep #:[id number] : 1965 60 From: Charo marie ORDER PULLER-C PCP: Dr. Maldonado Raza MD Status:A DM IN Location: [place] [address] Assessment & Plan Assessment/Plan (1) ESRD (end stage renal disease) on dialysis: PLAN: Plan We will continue dialysis for the patient, no acute indication for TREE MARKER today, next dialysis tomorrow. Will attempt to [...] [facility] Monday followed by Dr. Webb who presented to the emergency room with complaints of shortness of breath. Admitted for acute congestive heart failure. Nephrology consulted in view of history of ESRD and for dialysis management. Patient complains of feeling tiredtoday. Patient states she feels she has extra fluid on. [facility] Medical History S/p small bowel obstruction Incarcerated [...] 75.6 H, Lymph % (Auto) 16.7 L, Mcnairy % (Auto) 5.4, Eos % (Auto) 0.5, [...] bibasilar dependent atelectasis and CHF. Reading Location: [facility] 01/28/25 [facility] <Electronically signed by Charo Trzcinski ORDER PULLER-C> Cosigner Signature (if applicable): 01/29/25 1034 <Electronically signed by South Vasques MD> CC: Dr. Maldonado Raza MD~ Signed [facility] Work Phone: 1(985) 739-692105-28-2025 Progress note [facility] Medical Records Department [address] [place] [address] Progress Note - Hospitalist 01/29/25 1126 MR#: [id number] Acct: [id number] Name: SANDY BHATTI Rep #:[id number] : 1965 60 From: Kade Ricketts MD PCP: Dr. Maldonado Raza MD Status:A DM IN Location: [place] [address]- 1 Reason for Visit Reason for Visit: Diagnoses [...] % (Auto) Cancelled, Lymph % (Auto) Cancelled, Mcnairy % (Auto) Cancelled, Eos % (Auto) Cancelled, [...] Drop Cells Cancelled, Ovalocytes Cancelled, Stomatocytes Cancelled, [place] Bodies Cancelled, Sterling Cells Cancelled, Bite Cells Cancelled, Crenated Cell [...] % (Auto) 61.6, Lymph % (Auto) 27.9, Mcnairy % (Auto) 7.4, Eos % (Auto) 1.0, [...] Subcu heparin Charges/Coding Visit Charges Inpatient E&M: 98544 Subs Hosp L2 01/29/25 1128 Cosigner Signature (if applicable): CC: ~ Signed [facility]05-28-2025 Consult note [facility] Medical Records Department [address] [place] [address] Consultation - Nephrology 01/28/25 1419 MR#: [id number] Acct: [id number] Name: SANDY BHATTI Rep #:[id number] : 1965 60 From: Charo marie ORDER PULLER-C PCP: Dr. Maldonado Raza MD Status:A DM IN Location: [place] [address] Assessment & Plan Assessment/Plan (1) ESRD (end stage renal disease) on dialysis: PLAN: Plan We will continue dialysis for the patient, no acute indication for TREE MARKER today, next dialysis tomorrow. Will attempt to [...] [facility] Monday followed by Dr. Webb who presented to the emergency room with complaints of shortness of breath. Admitted for acute congestive heart failure. Nephrology consulted in view of history of ESRD and for dialysis management. Patient complains of feeling tiredtoday. Patient states she feels she has extra fluid on. [facility] Medical History S/p small bowel obstruction Incarcerated [...] 75.6 H, Lymph % (Auto) 16.7 L, Mcnairy % (Auto) 5.4, Eos % (Auto) 0.5, [...] bibasilar dependent atelectasis and CHF. Reading Location: [place] [address] 01/28/25 3973 Cosigner Signature (if applicable): 01/29/25 1032 CC: Dr. Maldonado Raza MD~ Signed [facility]05-27-2025 History and physical note Author Kade Ricketts [facility] Note Date/Time January 28, 2025 10:30 am [facility] Medical Records Department [address] [place] [address] H&P Exam - Hospitalist 01/28/25 0925 MR#: [id number] Acct: [id number] Name: SANDY BHATTI Rep #:[id number] : 1965 60 From: Kade Ricketts MD PCP: Dr. Maldonado Raza MD Status:A DM IN Location: [place] [id number]- 1 HPI - General General Date of [...] to a monitored bed for further management [facility] Medical History S/p small bowel obstruction Incarcerated [...] 75.6 H, Lymph % (Auto) 16.7 L, Mcnairy % (Auto) 5.4, Eos % (Auto) 0.5, [...] bibasilar dependent atelectasis and CHF. Reading Location: [place] [address] Assessment & Plan Assessment/Plan (1) Congestive heart [...] Multi Select Codes Visit Charges Visit Charges: 72611 Init Hosp Hospitalists' Procedures Procedures: 18446 Advncd Care Plan 30 Min 01/28/25 1030 <Electronically signed by Kade Ricketts MD> Cosigner Signature (if applicable): CC: Dr. Kade Ricketts MD; Dr. Maldonado Raza MD~ Signed [facility] Work Phone: 1(797) 544-449505-27-2025 Discharge summary Author Dave Coronado [facility] Note Date/Time January 28, 2025 9:31a m [facility] Medical Records Department [address] [place] [address] Emergency Department Summary 01/28/25 MR#: [id number] Acct: [id number] Name: SANDY BHATTI Rep #:[id number] : 1965 60 From: Dave christianson DO [...] intact Psych: Cooperative, appropriate mood and affect [facility] Medical History S/p small bowel obstruction Incarcerated [...] improvement. Chest x-ray [place] interpreted [place], [place]. Chest x-ray with cardiomegaly and [...] 75.6 H Lymph % (Auto) 16.7 L Mcnairy % (Auto) 5.4 Eos % (Auto) 0.5 [...] bibasilar dependent atelectasis and CHF. Reading Location: [place] [address] Discharge Plan Triage Chief Complaint: Shortness of [...] MD [Primary Care Provider] - Print Language: Kazakh What to do if you have Problems For any increased pain, shortness of breath, bleeding, nausea or vomiting, chestpain, or any unexpected problems, contact your Primary Care Provider. Call [facility] ([phone]) or report to the closest Emergency Room. Call 911 if necessary. 01/28/25930 <Electronically signed by Dave Coronado DO> Cosigner Signature (if applicable): CC: Dr. Maldonado Raza MD ~ Signed [facility] Work Phone: 1(294) 824-212405-27-2025 Evaluation note* Diagnosis Onset Date Resolution Status Admit Date Congestive heart failure (CHF) acute January 28, 2025 9:25am ESRD (end stage renal diseas e) on dialysis chronic January 28, 2025 9 :25am [facility] Work Phone: 1(133) 190-310505-27-2025 History and physical note [facility] Medical Records Department [address] [place] [address] H&P Exam - Hospitalist 01/28/25924 MR#: [id number] Acct: [id number] Name: SANDY BHATTI Rep #:[id number] : 1965 60 From: Kade Ricketts MD PCP: Dr. Maldonado Raza MD Status:A DM IN Location: [facility] [id number]- 1 HPI - General General Date of [...] to a monitored bed for further management [facility] Medical History S/p small bowel obstruction Incarcerated [...] 75.6 H, Lymph % (Auto) 16.7 L, Mcnairy % (Auto) 5.4, Eos % (Auto) 0.5, [...] bibasilar dependent atelectasis and CHF. Reading Location: [facility] Assessment & Plan Assessment/Plan (1) Congestive heart [...] Multi Select Codes Visit Charges Visit Charges: 02514 Init Hosp L3 Hospitalists' Procedures Procedures: 44148 Advncd Care Plan 30 Min 01/28/25 1030 Cosigner Signature (if applicable): CC: Dr. Kade Ricketts MD; Dr. Maldonado Raza MD~ Signed [facility]05-27-2025 Discharge summary [facility] Medical Records Department [address] [place] [address] Emergency Department Summary 01/28/25 MR#: [id number] Acct: [id number] Name: SANDY BHATTI Rep #:[id number] : 1965 60 From: Dave christianson DO [...] intact Psych: Cooperative, appropriate mood and [facility] S/p small bowel obstruction [...] improvement. Chest x-ray was personally interpreted [place], [place]. Chest x-ray with cardiomegaly and [...] 75.6 H Lymph % (Auto) 16.7 L Mcnairy % (Auto) 5.4 Eos % (Auto) 0.5 [...] bibasilar dependent atelectasis and CHF. Reading Location: [place] [address] Discharge Plan Triage Chief Complaint: Shortness of [...] MD [Primary Care Provider] - Print Language: Kazakh What to do if you have Problems For any increased pain, shortness of breath, bleeding, nausea or vomiting, chestpain, or any unexpected problems, contact your Primary Care Provider. Call [facility] ([phone]) or report tothe closest Emergency Room. Call 911 if necessary. 01/28/25 0931 Cosigner Signature (if applicable): CC: Dr. Maldonado Raza MD ~ Signed [facility]05-27-2025 Radiology Diagnostic study note [facility] Imaging Services [address] [place] [address] Chest PA and Lateral MR#: [id number] Acct: [id number] Name: SANDY BHATTI Rep #: [id number] : 1965 F 60 From: Jayme Gay MD PCP: Dr. Maldonado Raza MD Status: P RE ER Study:Chest PA and Lateral Date of Exam: 01/28/25 Exam# [id number] Ordering Dr: Dave Koroma DO PROCEDURE: CHEST [...] bibasilar dependent atelectasis and CHF. Reading Location: [facility] CC: Dr. Dave Coronado DO; Dr. Maldonado Raza MD ~ Yoker: Signed [facility]05-09-2025 Telephone encounter Note* Telephone Encounter - Krys Fountain - 01/10/2025 2:19 PM EDT Patient called in for arrival instructions and was told to arrive at 3:00 pm to J1-2, NPO after midnight, follow med guidelines and bring a ride home. Patient verbalized understanding [facility]05-09-2025 Miscellaneous Notes* Telephone Encounter - Krys Fountain - 01/10/2025 2:19 PM EDT Patient called in for arrival instructions and was told to arrive at 3:00 pm to J1-2, NPO after midnight, follow med guidelines and bring a ride home. Patient verbalized understanding documented in this encounterPremier Health05-01-2025 NoteDate of Procedure 01/02/2025. Hoist Mechanic Information Heel Cementer: YORDY. Imaging Comments: Best possible images obtained and Poor/limited view due to cornea/lens/vitreous opacity in the left eye. OCT Macula Interpretation Right Eye Normal without fluid. Findings include Atrophy; Negative for Intraretinal fluid. Left Eye Normal without fluid. Findings include Negative for Intraretinal fluid. Interval Change Right Eye Initial. Left Eye Initial.[id number] NoteDate of Procedure 01/02/2025. Hoist Mechanic Information Heel Cementer: YORDY. Imaging Comments: Best possible images obtained and Poor/limited view due to cornea/lens/vitreous opacity in the left eye. Interpretation Right Eye Normal pattern.[id number] NoteDate of Procedure 01/02/2025. Hoist Mechanic Information Heel Cementer: YORDY. Imaging Comments: Best possible images obtained and Poor/limited view due to cornea/lens/vitreous opacity in the left eye. Disc Right Eye Normal. Left Eye Pallor. Macula Right Eye Microaneurysms. Left Eye Microaneurysms. Periphery Right Eye Hemorrhage. Left Eye Hemorrhage.[id number] NoteDate of Procedure 01/02/2025. Hoist Mechanic Information Heel Cementer: YORDY. Imaging Comments: Best possible images obtained and Poor/limited view due to cornea/lens/vitreous opacity in the left eye. . Quality Right Eye Excessive artifacts. Left Eye Poor. Interpretation Right Eye Findings include Negative for CNV.[id number] NoteHNO ID: [id number] Author: CHRISTOPHER SNELL MD Service: ? Author [...] Pseudophakia, OS DMEK, OS -S/p CEIOL 02/2023 ([facility]) -Lost vision few days after CEIOL -DMEK [...] and agree with all of its relevant components.[facility]05-01-2025 History of Present illness Narrative* Christopher [...] Pseudophakia, OS DMEK, OS -S/p CEIOL 02/2023 ([facility]) -Lost vision few days after CEIOL -DMEK [...] of its relevant components. documented in this encounterPremier Health05-01-2025 Telephone encounter Note * Telephone Encounter - Lakshmi Davies RN - 01/02/2025 8:54 AM EDT Addressed - see other telephone encounter from 01/01/25 for further documentation. Lakshmi Davies RN, BSN 8:54 AM January 02, 2025 [facility] Work Phone: 1(461) 152-114505-01-2025 Miscellaneous Notes* Telephone Encounter - Lkashmi Davies RN - 01/02/2025 8:54 AM EDT Addressed - see other telephone encounter from 01/01/25 for further documentation. Lakshmi Davies RN, BSN 8:54 AM January 02, 2025 * Telephone Encounter - Kenia Johnson RN - 01/01/2025 3:24 PM EDT Called patient in order to reschedule fistulogram. Patient did not answer the phone and unable to leave a voicemail. documented in this encounterPremier Health04-30-2025 Telephone encounter Note * Telephone Encounter - Asuncion Pinedo - 01/01/2025 3:59 PM EDT Spoke with patient spouse and they both stated that 01/14 would be a great date for the surgery. Explained to patient spouse that someone will follow up with them tomorrow morning. [facility]04-30-2025 Miscellaneous Notes* Telephone Encounter - Asuncion Pinedo - 01/01/2025 3:59 PM EDT Spoke with patient spouse and they both stated that 01/14 would be a great date for the surgery. Explained to patient spouse that someone will follow up with them tomorrow morning. documented in this encounterPremier Health04-30-2025 Telephone encounter Note * Telephone Encounter - Kenia Johnson RN - 01/01/2025 3:24 PM EDT Called patient in order to reschedule fistulogram. Patient did not answer the phone and unable to leave a voicemail. [facility]04-29-2025 Telephone encounter Note* Telephone Encounter - Leola Huffman RN - 12/31/2024 12:45 PM EDT Called pt to give arrival time and instructions for fistulogram with Dr. Duuqe Pt states that she has had a cold for the last week and is still sick Discussed with Dr. Duque, pt should be rescheduled Informed pt and that she will receive a call back to reschedule She verbalized understanding All questions answered Leola Huffman RN [facility]04-29-2025 Miscellaneous Notes* Telephone Encounter - Leola Huffman [...] answered Leola Huffman RN documented in this encounterPremier Health04-29-2025 Evaluation note* Diagnosis Onset Date Resolution Status Admit Date Nail avulsion of toe acute Apri l 2024 9:43am [facility] Work Phone: 1(156) [phone] Evaluation note* Diagnosis Onset Date Resolution Status Admit Date Nail avulsion of toe acute Apri l 2024 9:43am Congestive heart failure (CHF) acute January 28, 2025 9:25am ESRD (end stage renal diseas e) on dialysis chronic January 28, 2025 9 :25am [facility] Work Phone: 1(708) 705-257304-28-2025 Telephone encounter Note* Telephone Encounter - Vita Purdy RN - 12/30/2024 2:51 PM EDT Spoke with patient. Agrees to fistulogram Monday 01/[address] Duque at [facility]. JESSICA Gorman [facility]04-28-2025 Miscellaneous Notes* Telephone Encounter - Vita Purdy RN - 12/30/2024 2:51 PM EDT Spoke with patient. Agrees to fistulogram Monday 01/[address] Duque at [facility]. JESSICA Gorman * Telephone Encounter - Rabia Coles - 12/30/2024 10:21 AM EDT Referral from [facility] for the patient to be scheduled for a fistulagram due to high venous pressure and cannulation issues. Referral has been scanned into the patient's chart. documented in this encounterPremier Health04-28-2025 Telephone encounter Note * Telephone Encounter - Dionisio Colesqueline - 12/30/2024 10:21 AM EDT Referral from [facility] for the patient to be scheduled for a fistulagram due to high venous pressure and cannulation issues. Referral has been scanned into the patient's chart. [facility] Work Phone: 1(644) 157-577404-17-2025 Telephone encounter Note* Telephone Encounter - Lakshmi [...] a fistulagram. Pt gets dialysis M/W/F at [facility], which is closed //Mon/Mon. Informed her that since it is so late in the day and her center is closed, we would have to call her tomorrow. Pt stated that on her dialysis days, she is usually there until about 10 am. Pt stated understanding and agreeable to plan. Lakshmi Davies RN, BSN 5:10 PM December 19, 2024 [facility] Work Phone: 1([phone]) 296-114904-17-2025 Miscellaneous Notes* Telephone Encounter - Lakshmi Davies [...] a fistulagram. Pt gets dialysis M/W/F at [facility], which is closed //Mon/Mon. Informed her that since it is so late in the day and her center is closed, we would have to call her tomorrow. Pt stated that on her dialysis days, she is usually there until about 10 am. Pt stated understanding and agreeable to plan. Lakshmi Davies RN, BSN 5:10 PM December 19, 2024 documented in this encounterPremier Health04-15-2025 Telephone encounter Note * Telephone Encounter - Marek Garcia - 12/17/2024 10:33 AM EDT Reason for call: Mr.s sandy Bhatti called and he would like to schedule an appointment with DR lozada and her scan Contact Name (if not the patient) Home and cell number [phone] Diagnosis Fistula gram Kind Regards Marek Garcia [facility]04-15-2025 Miscellaneous Notes* Telephone Encounter - Marek Garcia - 12/17/2024 10:33 AM EDT Reason for call: Mr.s sandy Bhatti called and he would like to schedule an appointment with DR lozada and her scan Contact Name (if not the patient) Home and cell number [phone] Diagnosis Fistula gram Kind Regards Marek Garcia documented in this encounterPremier Health04-03-2025 Telephone encounter Note * Telephone Encounter - Maldonado Raza MD - 12/05/2024 12:08 PM EDT The following approved medication requests have been transmitted electronically. Requested Prescriptions Signed Prescriptions Disp Refills insulin glargine (LANTUS SOLOSTAR U-100 INSULIN) 100 unit/mL (3 mL) 15 mL 5 Sig: Inject 48 Units subcutaneously daily at bedtime. Authorizing Provider: MALDONADO RAZA MD [facility]04-03-2025 Miscellaneous Notes* Telephone Encounter - Maldonado Raza [...] Pierce RN - 12/05/2024 11:01 AM EDT [facility] to let pcp know- they quit making levemir. States pcp can order Lantus, Toujeo, or Tresiba in it's place. documented in this encounterPremier Health04-03-2025 Telephone encounter Note * Telephone Encounter - Chris Pierce RN - 12/05/2024 11:01 AM EDT [facility] phoned to let pcp know- they quit making levemir. [facility] pcp can order Lantus, Toujeo, or Tresiba in it's place. [facility]04-03-2025 Instructions* Patient Instructions* Maldonado Raza MD - 12/05/2024 10:17 AM EDT HEPATITIS VACCINE SERIES NOW, AT 1 MONTH, AND AT 6 MONTHS. FASTING BLOOD WORK END OF . documented in this encounterPremier Health04-03-2025 NoteHNO ID: [id number] Author: MALDONADO RAZA MD Service: ? Author Type: Physician Type: Progress Notes Filed: 12/05/2024 10:46 Note Text: This note was created using RubyRideter. Subjective Patient presents with: 5 month follow-up Sandy Bhatti is a 59 year old female. She was doing reasonably well. Her diabetes mellitus was labile. Hypertension was controlled. ESRD was managed with dialysis. Migraines were infrequent. She is scheduled with [facility] for uveitis. Review of Systems Constitutional: [...] Musculoskeletal: Right lower le (more content not included)...[facility] 12-05-2024 History of Present illness Narrative* Maldonado Raza MD - 12/05/2024 9:53 AM EDT This note was created using PurePlayriter. Subjective Patient presents with: 5 month follow-up Sandy Bhatti is a 59 year old female. She was doing reasonably well. Her diabetes mellitus was labile. Hypertension was controlled. ESRD was managed with dialysis. Migraines were infrequent. She is scheduled with [facility] for uveitis. Review of Systems Constitutional: [...] complication, with long-term current use of insulin ([facility]) - ICD9: 250.00, V58.67, ICD10: E11.9, Z79.4 [...] GYNECOLOGY Maldonado Raza MD documented in this encounterPremier Health04-01-2025 History of Present illness Narrative* Sangeeta George RDNH - 12/03/2024 1:30 PM EDT Radiology Service [...] PATIENT PRESENTS WITH AN IMPLANTABLE OR ATTACHED BUSINESS ADMINISTRATOR: No RADIOLOGY DEPARTMENT: Ultrasound PERIPHERAL IV DATA: Not applicable SIGNED BY: Sangeeta George RDMS December 03, 2024 2:01 PM documented in this encounterPremier Health04-01-2025 NoteHNO ID: [id number] Author: SANGEETA GEORGE RDMS Service: ? Author Type: Hoist Mechanic Type: Progress Notes Filed: 12/03/2024 14:01 Note [...] PATIENT PRESENTS WITH AN IMPLANTABLE OR ATTACHED BUSINESS ADMINISTRATOR: No RADIOLOGY DEPARTMENT: Ultrasound PERIPHERAL IV DATA: Not applicable SIGNED BY: Sangeeta George RDMS December 03, 2024 2:01 [facility]04-01-2025 History of Present illness Narrative* Alex Callahan Mammo Tech - 12/03/2024 1:00 PM EDT [...] PATIENT PRESENTS WITH AN IMPLANTABLE OR ATTACHED BUSINESS ADMINISTRATOR: No RADIOLOGY DEPARTMENT: Mammography PERIPHERAL IV DATA: Not applicable SIGNED BY: Kika Cooley December 03, 2024 1:01 PM documented in this encounterPremier Health04-01-2025 NoteHNO ID: [id number] Author: ALEX CALLAHAN Mammo Tech Service: ? Author Type: Hoist Mechanic Type: Progress Notes Filed: 12/03/2024 13:01 Note [...] PATIENT PRESENTS WITH AN IMPLANTABLE OR ATTACHED BUSINESS ADMINISTRATOR: No RADIOLOGY DEPARTMENT: Mammography PERIPHERAL IV DATA: Not applicable SIGNED BY: Kika Cooley December 03, 2024 1:01 [facility]03-25-2025 Telephone encounter Note* Telephone Encounter - [...] Please advise. Thank you. Edie Samayoa LPN. [facility]03-25-2025 Miscellaneous Notes* Telephone Encounter - Edie Samayoa [...] you. Edie Samayoa LPN. documented in this encounterPremier Health03-24-2025 Telephone encounter Note * Telephone Encounter - [...] Please advise. Thank you. Edie Samayoa LPN. [facility]03-24-2025 Miscellaneous Notes* Telephone Encounter - Edie Samayoa [...] you. Edie Samayoa LPN. documented in this encounterPremier Health12-28-2024 Telephone encounter Note * Telephone Encounter - [...] once daily. Authorizing Provider: ARTEMIO SCHAFER MD [facility]12-28-2024 Miscellaneous Notes* Telephone Encounter - Artemio Schafer [...] incorrectly the first time. documented in this encounterPremier Health12-27-2024 Telephone encounter Note * Telephone Encounter - Sandy Shrestha LPN - 08/30/2024 2:29 PM EST Pts called and pt ois out of med this was routed incorrectly the first time. [facility]12-15-2024 NoteHNO ID: [id number] Author: ASUNCION ROSSI RN Service: ? Author Type: Registered Nurse Type: Progress Notes Filed: 08/18/2024 18:43 Note Text: CDM Telephonic Outreach Provider Action/FYI Contacted for: Routine Telephonic Outreach Contact made with patient: No, unable to leave message. Asuncion Rossi RN August 18, 2024 6:43 [facility]12-15-2024 NotePatient Outreach ([facility]) SANDY BHATTI ([id number]) 1965 F Date Time Provider Department 08/18/24 ASUNCION ROSSI [facility] During your visit today, we recorded the following information about you: Asuncion Rossi RN 08/18/2024 6:43 PM Signed CD Telephonic Outreach Provider Action/FYI Contacted for: Routine Telephonic Outreach Contact made with patient: No, unable to leave message. Asucnion Rossi RN August 18, 2024 6:43 PM [...] 07/10/2024 Encounter Status:Closed by ASUNCION ROSSI on 08/18/24[facility] 08-15-2024 NoteHNO ID: [id number] Author: ASUNCION ROSSI RN Service: ? Author Type: Registered Nurse Type: Progress Notes Filed: 08/15/2024 15:49 Note Text: [facility] Telephonic Outreach Provider Action/FYI -chf, ckd, htn, [...] daily weight at home? No Based on jewelry salesperson, the following disposition is advised: No symptoms or symptoms present, not severe. Routed to: No Action Needed EJANNETTE Education Provided this Outreach: No Asuncion Rossi RN August 15, 2024 3:46 [facility]12-12-2024 History of Present illness Narrative* Asuncion Rossi RN - 08/15/2024 3:42 PM EST [facility] Telephonic Outreach Provider Schuyler/ -chf, ckd, htn, dm Patient states she [...] daily weight at home? No Based on jewelry salesperson, the following disposition is advised: No symptoms or symptoms present, not severe. Routed to: No Action Needed JEANNETTE Education Provided this Outreach: No Asuncion Rossi RN August 15, 2024 3:46 PM documented in this encounterPremier Health12-12-2024 NotePatient Outreach ([facility]) SANDY BHATTI ([id number]) 1965 F Date Time Provider Department 08/15/24 ASUNCION ROSSI During your visit today, we recorded the following information about you: Asuncion Rossi RN 08/15/2024 3:49 PM Signed [facility] Telephonic Outreach Provider Action/FYI -chf, ckd, htn, dm Patient states she has a rash on her arms, back and chest that started after dialysis this past Monday. Patient states [facility] nurse sent a message to her kidney [...] daily weight at home? No Based on jewelry salesperson, the following disposition is advised: No symptoms [...] 05/16/2019 [place] (ventricular tachycardi (more content not included)...[facility]11-27-2024 NoteHNO ID: [id number] Author: ASUNCION ROSSI RN Service: ? Author Type: Registered Nurse Type: Progress Notes Filed: 07/31/2024 11:11 Note Text: [facility] Telephonic Outreach Provider Action/FYI Contacted for: Routine Telephonic Outreach Contact made with patient: No, unable to leave message. Asuncion Rossi RN July 31, 2024 11:10 [facility]11-27-2024 History of Present illness Narrative* Asuncion Rossi RN - 07/31/2024 11:09 AM EST [facility] Telephonic Outreach Provider Action/FYI Contacted for: Routine Telephonic Outreach Contact made with patient: No, unable to leave message. Asuncion Rossi RN July 31, 2024 11:10 AM documented in this encounterPremier Health11-27-2024 NotePatient Outreach ([facility]) SANDY BAHTTI ([id number]) 1965 F Date Time Provider Department 07/31/24 ASUNCION ROSSI [facility] During your visit today, we recorded the [...] 07/10/2024 Encounter Status:Closed by ASUNCION ROSSI on 07/31/24[facility] 07-30-2024 NoteHNO ID: [id number] Author: ASUNCION ROSSI RN Service: ? Author Type: Registered Nurse Type: Progress Notes Filed: 07/30/2024 10:14 Note Text: [facility] Telephonic Outreach Provider Action/FYI Contacted for: Routine Telephonic Outreach Contact made with patient: No, unable to leave message. sAuncion Rossi RN July 30, 2024 10:14 [facility]11-26-2024 History of Present illness Narrative* Asuncion Rossi RN - 07/30/2024 10:13 AM EST [facility] Telephonic Outreach Provider Action/FYI Contacted for: Routine Telephonic Outreach Contact made with patient: No, unable to leave message. Asuncion Rossi RN July 30, 2024 10:14 AM documented in this encounterPremier Health11-26-2024 NotePatient Outreach ([facility]) SANDY BHATTI ([id number]) 1965 F Date Time Provider Department 07/30/24 ASUNCION ROSSI During your visit today, we recorded the following information about you: Asuncion Rossi RN 07/30/2024 10:14 AM Signed CD Telephonic Outreach Provider Action/FYI Contacted for: [...] 07/10/2024 Encounter Status:Closed by ASUNCION ROSSI on 07/30/24[facility] 07-25-2024 History of Present illness Narrative* [...] of chronic disease Anxiety Arteriovenous fistula, acquired (CMS-HCC) Coronary arteriosclerosis Calculus of kidney Cataract Colostomy [...] depressive disorder, recurrent episode with anxious distress (CMS-HCC) Migraine Peripheral arterial disease (CMS-HCC) Prolonged QT interval Proteinuria Secondary hyperparathyroidism of [...] Review Blood Type: No results found for: [facility] Lab Results Component Value Date CREATININE 6.09 [...] exam,patient counseling, and documentation. documented in this [facility] Work Phone: 1(998) 934-659211-19-2024 History of Present illness Narrative* Murtaza Castellon MD - 07/23/2024 4:00 PM EST Subjective Sandy Bhatti is a 59 y.o. female who presents to the [facility] for preoperative cardiac evaluation for kidney transplant [...] had CAD; sister has CAD and prior [place]. Review of Systems A 14 point review [...] scar 07/11/2024 CT calcium score: 340 05/14/2018 [facility] (06/[address] Danita Barros) done at [facility]: non- obstructive coronary plaque with 60% distal [...] disease in small branch arteries on 05/2018 [facility] cath, moderate range CT calcium score this month) without evidence of ischemia on serial perfusion scans. She has prior severe LVH documented on serial echocardiograms to 2019 at [facility]. 09/2023 echocardiogram at [facility] concerning for asymmetric LVH (interventricular septum 1.8 cm / posterior LV wall 1.5 cm). No prior cardiac MRI to assess for hypertrophic cardiomyopathy vs hypertensive heart disease. Will check CMRI for risk stratification. Time = 45 minutes on direct patient care reviewing current symptoms and discussing treatment options, reviewing prior cardiac care, and coordinating follow up testing. SIGNATURE: Murtaza Castellon M.D. [facility] Senior Attending, Division of Cardiovascular Medicine Co-Director, [facility] Lithographic Retoucher Apprenticesemiautomatic taper operator [facility] [employer] [facility] [id number] [facility] [address] [place] [address] Appointment: [phone] PATIENT NAME: Sandy Bhatti DATE/TIME: July 23, 2024 4:18 PM documented in this [facility] Work Phone: 1(232) 312-948711-19-2024 Instructions* Patient Instructions* Murtaza Castellon MD - 07/23/2024 4:00 PM EST You were seen at the [facility] for a check up of your heart. Your echocardiogram showed severe thickening of your left ventricle heart muscle bentley. Your ECG isabnormal. I am ordering a MRI of your heart to screening for hypertrophic cardiomyopathy or to confirm that these abnormal findings are only due to your history of high blood pressure. Call [phone] to schedule the MRI test at our [facility] location on 2nd floor [facility] or at [facility]. The [facility] testing location is to the right of the information desk when you walk into [facility] from the [facility] patient parking garage. documented in this [facility] Work Phone: 1(712) 328-987311-07-2024 History of Present illness Narrative* Alex Callahan [...] PATIENT PRESENTS WITH AN IMPLANTABLE OR ATTACHED BUSINESS ADMINISTRATOR: No RADIOLOGY DEPARTMENT: Mammography PERIPHERAL IV DATA: Not applicable SIGNED BY: Kika Cooley July 11, 2024 9:35 AM documented in this encounterPremier Health11-07-2024 NoteHNO ID: [id number] Author: ALEX CALLAHAN Mammo Rj Service: ? Author Type: Hoist Mechanic Type: Progress Notes Filed: 07/11/2024 09:35 Note [...] PATIENT PRESENTS WITH AN IMPLANTABLE OR ATTACHED BUSINESS ADMINISTRATOR: No RADIOLOGY DEPARTMENT: Mammography PERIPHERAL IV DATA: Not applicable SIGNED BY: Kika Cooley July 11, 2024 9:35 [facility]11-06-2024 NoteHNO ID: [id number] Author: LUNA THOMAS MD Service: ? Author Type: Physician Type: Progress Notes Filed: 07/10/2024 16:21 Note Text: [facility] DEPARTMENT OF VASCULAR SURGERY OUTPATIENT VISIT DATE [...] COLONOSCOPY SCREENING 11/15/2022 COLOSTOMY/SKIN LEVEL CECOSTOMY 2007 [id number], reversed 2006 CREATION OF AVF, PERCUTANEOUS USING [...] migraine. May repeat in (more content not included)...[facility] 07-10-2024 History of Present illness Narrative* Luna Thomas MD - 07/10/2024 4:11 PM EST Images from the original note were not included. [facility] DEPARTMENT OF VASCULAR SURGERY OUTPATIENT VISIT DATE [...] kidney disease) stage V requiring chronic dialysis ([facility]) 03/01/2018 Dr. Pendleton, nephrology. Congestive heart failure [...] colic 06/12/2007 Secondary hyperparathyroidism of renal origin ([facility]) 06/20/2023 Steal syndrome dialysis vascular access ([facility]) 05/17/2019 Thyroid disorder TIA (transient ischemic attack) [...] COLONOSCOPY SCREENING 11/15/2022 COLOSTOMY/SKIN LEVEL CECOSTOMY 2007 [id number], reversed 2006 CREATION OF AVF, PERCUTANEOUS USING [...] 2024 TIME: 4:11 PM documented in this encounterPremier Health10-29-2024 NoteHNO ID: [id number] Author: ASUNCION ROSSI RN Service: ? Author [...] daily weight at home? No Based on jewelry salesperson, the following disposition is advised: No symptoms or symptoms present, not severe. Routed to: No Action Needed JEANNETTE Education Provided this Outreach: No Asuncion Rossi RN July 02, 2024 10:01 [facility]10-29-2024 History of Present illness Narrative* Asuncion Rossi RN - 07/02/2024 9:59 AM EDT [facility] Telephonic Outreach Provider Action/FYI Patient states she [...] daily weight at home? No Based on jewelry salesperson, the following disposition is advised: No symptoms or symptoms present, not severe. Routed to: No Action Needed JEANNETTE Education Provided this Outreach: No Asunicon Rossi RN July 02, 2024 10:01 AM documented in this encounterPremier Health10-29-2024 NotePatient Outreach ([facility]) SANDY BHATTI ([id number]) 1965 F Date Time Provider Department 07/02/24 ASUNCION ROSSI [facility] During your visit today, we recorded the [...] daily weight at home? No Based on jewelry salesperson, the following disposition is advised: No symptoms [...] Abnormal EKG [R94.31] 10 (more content not included)...[facility]10-22-2024 NoteHNO ID: [id number] Author: ASUNCION ROSSI RN Service: ? Author Type: Registered Nurse Type: Progress Notes Filed: 06/25/2024 14:47 Note Text: [facility] Telephonic Outreach Provider Action/FYI Contacted for: Routine Telephonic Outreach Contact made with patient: No, unable to leave message. Asuncion Rossi RN June 25, 2024 2:46 [facility] History of Present illness Narrative* Asuncion Rossi RN - 06/25/2024 2:45 PM EDT [facility] Telephonic Outreach Provider Action/FYI Contacted for: Routine Telephonic Outreach Contact made with patient: No, unable to leave message. Asuncion Rossi RN June 25, 2024 2:46 PM documented in this encounterPremier Health10-22-2024 NotePatient Outreach ([facility]) SANDY BHATTI ([id number]) 1965 F Date Time Provider Department 06/25/24 ASUNCION ROSSI [facility] During your visit today, we recorded the following information about you: Asuncion Rossi RN 06/25/2024 2:47 PM Signed [facility] Telephonic Outreach Provider Action/FYI Contacted for: Routine [...] 06/13/2024 Encounter Status:Closed by ASUNCION ROSSI on 06/25/24[facility] 06-13-2024 Instructions* Patient Instructions* Maldonado Raza [...] 1-dose series) Never done Covid-19 Vaccine( - 2023- season) due on 05/05/2024 Dilated Retinal Exam [...] review all the medicines you take, even kwva-vjg-zveufoy medicines. As you get older, the way [...] 1-dose series) Never done documented in this encounterPremier Health10-10-2024 NoteHNO ID: [id number] Author: MALDONADO RAZA MD Service: ? Author Type: Physician Type: Progress Notes Filed: 06/13/2024 16:25 Note Text: This note was created using [employer]. Subjective Sandy Bhatti is a 59 year old female. She missed dialysis yesterday due to migraines. She took Imitrex which helped. She had residual lightheadedness today. Her hypertension was difficult and labile. She typically held her blood pressure medications for the morning of dialysis. She had a cough for one month, but was scheduled for a chest xray at [facility] where she is being evaluated for transplant. [...] ICD10: I77.0 S/p sten (more content not included)...[facility]10-10-2024 History of Present illness Narrative* Maldonado [...] scheduled for a chest xray at [facility] where she is being evaluated for transplant. [...] Complication, With Long-Term Current Use of Insulin ([facility]) Htn (Hypertension) Hyperlipidemia Hypothyroid Ascvd (Arteriosclerotic Cardiovascular Disease) Proteinuria Esrd On Dialysis ([facility]) VT (ventricular tachycardia) Tubular Adenoma of Colon Secondary Hyperparathyroidism of Renal Origin (Hcc) Hypertrophic Cardiomyopathy (Hcc) Congestive Heart Failure ([facility]) History of Echocardiogram History of Stress Test Encounter for Screening for Stenosis of Carotid Artery Arteriovenous Fistula, Acquired ([facility]) Current Outpatient Medications Medication Sig nitroglycerin sublingual [...] immunization - ICD9: V03.89, ICD10: Z23 - [employer] COVID-19 VACCINE AGE 12+ YR (COMIRNATY) 3. [...] - General (Internal Medicine) Dr. Miladys Shelton, [place] trench shovel operator. Dr. Luna Thomas, vascular surgery. [facility], Gynecology. Byron Day MD as Referring (Ophthalmology) Dr. Dave Pickett, Cardiology. Dr. Héctor Cruz, Ophthalmology. Helen Cuellar APRN, CN, Gynecology. [facility] for dialysis. Medical/Family history review [...] - Vaccine recommendations reviewed. documented in this encounterPremier Health10-10-2024 NoteHNO ID: [id number] Author: MALDONADO RAZA MD Service: ? Author [...] record. Current care team: Patient Care Team: Maldonaod Raza MD as PCP - General (Internal Medicine) Dr. Miladys Shelton, [place] trench shovel operator. Dr. Luna Thomas, vascular surgery. [facility], Gynecology. Byron Day MD as Referring (Ophthalmology) DrYodit Pickett, Cardiology. Dr. Héctor Cruz, Ophthalmology. Helen Cuellar APRN, CN, Gynecology. [facility] for dialysis. Medical/Family history review Reviewed and [...] Personalized prevention plan provided - Vaccine recommendations reviewed.[facility]10-08-2024 NoteHNO ID: [id number] Author: MANDIE YOUNGER APRN.SCREW MACHINE OPERATOR SWISS TYPE Service: ? Author Type: Nurse Practitioner Type: Progress Notes Filed: 06/11/2024 07:45 Note Text: [facility] Department of Cardiology Referring Provider: No ref. provider found Date: June 11, 2024 Chief Complaint: Congestive heart failure, unspecified HF chronicity, unspecified heart failure type ([facility]) Subjective: Sandy Bhatti is a 59 year old female who presents as an established patient for coronary artery disease and heart failure assessment management. History of arteriosclerotic vascular disease and hypertension. Patient is a dialysis patient with [facility], Knqvlg-Eiygqvkng-Njigdoq. Patient has a right upper arm fistula. ALLERGIES Allergen Reactions Codeine GI Upset Latex Hives 2005 had reaction after surgery Penicillins Swelling Chlorhexidine Rash PAST MEDICAL HISTORY: PAST MEDICAL HISTORY Diagnosis Date Acute kidney failure ([facility]) 01/14/2018 Anxiety Arterial steal syndrome ([facility]) 12/2018 Left AVF Calculus of ureter 06/12/2007 CKD (chronic kidney disease) stage V requiring chronic dialysis ([facility]) 03/01/2018 Dr. Pendleton, nephrology. Congestive heart failure ([facility]) Constipation Depression 09/04/2006 Encounter for screening for stenosis of carotid artery 03/27/2023 Less then 50% calcification bilaterally. ESRD on dialysis ([facility]) 05/16/2019 GERD (gastroesophageal reflux disease) Hemorrhoids History [...] colic 06/12/2007 Secondary hyperparathyroidism of renal origin ([facility]) 06/20/2023 Steal syndrome dialysis vascular access ([facility]) 05/17/2019 Thyroid disorder TIA (transient ischemic attack) [...] COLONOSCOPY SCREENING 11/15/2022 COLOSTOMY/SKIN LEVEL CECOSTOMY [id number], reversed 2007 CREATION OF AVF, PERCUTANEOUS USING [...] lung cancer Coronary Artery Disease Brother dec. [place] 57 y.o. No Known Problems Maternal Grandmother [...] Add 1 unit for (more content not included)...[id number] History of Present illness Narrative* Mandie Younger APRN.SCREW MACHINE OPERATOR SWISS TYPE - 06/11/2024 6:51 AM EDT Images from the original note were not included. [facility] Department of Cardiology Referring Provider: No [...] Patient is a dialysis patient with [facility], Iezxjw-Wnpjfdpzx-Aayioej. Patient has a right upper arm fistula. ALLERGIES Allergen Reactions Codeine GI Upset Latex Hives 2005 had reaction after surgery Penicillins Swelling Chlorhexidine Rash PAST MEDICAL HISTORY: PAST MEDICAL HISTORY Diagnosis Date Acute kidney failure ([facility]) 01/14/2018 Anxiety Arterial steal syndrome ([facility]) 12/2018 Left AVF Calculus of ureter 06/12/2007 CKD (chronic kidney disease) stage V requiring chronic dialysis ([facility]) 03/01/2018 Dr. Pendleton, nephrology. Congestive heart failure ([facility]) Constipation Depression 09/04/2006 Encounter for screening for stenosis of carotid artery 03/27/2023 Less then 50% calcification bilaterally. ESRD on dialysis ([facility]) 05/16/2019 GERD (gastroesophageal reflux disease) Hemorrhoids History [...] (HCC) 06/20/2023 Steal syndrome dialysis vascular access ([facility]) 05/17/2019 Thyroid disorder TIA (transient ischemic attack) [...] COLONOSCOPY SCREENING 11/15/2022 COLOSTOMY/SKIN LEVEL CECOSTOMY 2007 [id number], reversed 2007 CREATION OF AVF, PERCUTANEOUS USING [...] lung cancer Coronary Artery Disease Brother dec. [place] 57 y.o. No Known Problems Maternal Grandmother [...] a dialysis patient with dialysis treatment every Btuzhr-Dsttplpyc-Yatrjf -Currently taking lisinopril 40 mg daily 2. [...] exercise -Statin is followed and managed through [facility] 5. History of echocardiogram - ICD9: [...] note was partially generated from using the [employer] voice recognition system. There maybe some incorrect words, spelling, and punctuation that were not noted in checking the note prior to saving documented in this encounterPremier Health10-02-2024 Telephone encounter Note * Telephone Encounter - Celsa Chung - 06/05/2024 10:38 AM EDT I spoke with her and she will come in on 08/08 at 2:30. Appt sent to be scheduled. [facility]10-02-2024 Miscellaneous Notes* Telephone Encounter - Celsa Chung [...] good for her since she has dialysis on--. Is there another she can be seen instead? * Telephone Encounter - Krys Lakhani RN [...] notes over for review. documented in this encounterPremier Health10-02-2024 Telephone encounter Note * Telephone Encounter - Krys Lakhani RN - 06/05/2024 10:19 AM EDT 08/08 at 2:30. Alissa [facility]10-02-2024 Telephone encounter Note* Telephone Encounter - Celsa Chung - 06/05/2024 10:03 AM EDT She said she has other appts that day but that are good for her since she has dialysis on. Is there another she can be seen instead? [facility]10-02-2024 Telephone encounter Note* Telephone Encounter - Krys Lakhani RN - 06/05/2024 6:31 AM EDT We can see them 07/11 at 9 am. Alissa Nevarez [facility]10-01-2024 Telephone encounter Note* Telephone Encounter - Celsa Chung - 06/04/2024 11:[address] Byron Day is referring this pt to Dr. 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 They did specifically say Dr. Alis unless you feel this patient can be seen by any of our uveitis specialists in which case I can have our appt office help set the patient up. Please advise. They said they will also be sending notes over for review. [facility]09-18-2024 NoteHNO ID: [id number] Author: ASUNCION ROSSI RN Service: ? Author [...] pounds in a week? No Based on jewelry salesperson, the following disposition is advised: No symptoms or symptoms present, not severe. Routed to: No Action Needed JEANNETTE Education Provided this Outreach: No Asuncion Rossi RN May 22, 2024 1:16 [facility]09-18-2024 History of Present illness Narrative* Asuncion Rossi RN - 05/22/2024 1:06 PM EDT CD Telephonic Outreach Provider Action/FYI -chf, ckd, htn, [...] pounds in a week? No Based on jewelry salesperson, the following disposition is advised: No symptoms or symptoms present, not severe. Routed to: No Action Needed JEANNETTE Education Provided this Outreach: No Asuncion Rossi RN May 22, 2024 1:16 PM documented in this encounterPremier Health09-18-2024 NotePatient Outreach ([facility]) SANDY BHATTI ([id number]) 1965 F Date Time Provider Department 05/22/24 ASUNCION ROSSI AMBLYNN During your visit today, we recorded the following information about you: Asuncion Rossi RN 05/22/2024 1:17 PM Signed [facility] Telephonic Outreach Provider Action/FYI -chf, ckd, htn, [...] pounds in a week? No Based on jewelry salesperson, the following disposition is advised: No symptoms [...] (HCC) [N18.6] 04/21/2021 02 (more content not included)...[facility]09-12-2024 NoteHNO ID: [id number] Author: SHAHLA DUEÑAS DO Service: ? Author Type: Resident Type: Anesthesia Procedure Notes Filed: 05/16/2024 16:13 Note Text: ANESTHESIOLOGY PROCEDURE NOTE Airway General Information Procedure Start Time/Medication Administration: 05/16/2024 3:43 PM Procedure End Time: 05/16/2024 3:44 PM Patient location during procedure: OR Timeout Performed Pre-procedure: timeout performed Consent Obtained: Yes Patient identity confirmed: arm band Staffing Anesthesiologist: Luis Burgos MD Resident: Shahla Dueñas DO Performed [...] May 16, 2024 TIME: 4:13 PM CSN: [id number] Telephone encounter Note* Telephone Encounter - Tiffany Nick RN - 05/15/2024 12:55 PM EDT Returned call to pt. She states that she found her written medication instructions which she received for her procedure scheduled tomorrow with Dr Thomas. Reviewed her medication list with her. She verbalizes understanding and agrees. Tiffany Nick RN May 15, 2024 12:57 PM [facility]09-11-2024 Miscellaneous Notes* Telephone Encounter - Tiffany Nick [...] he never got them. documented in this encounterPremier Health09-11-2024 Telephone encounter Note * Telephone Encounter - Krys Fountain - 05/15/2024 12:43 PM EDT Patient's calls back requesting earlier start time. Per Dr. Thomas, moved the case to second round.. Patient's would like a call regarding patient's medication instructions because he never got them. [facility]09-11-2024 Telephone encounter Note* Telephone Encounter - Krys Fountain - 05/15/2024 12:29 PM EDT Attempted patient and twice. Called and LVM W/ the following arrival instructions: 1:00 PM arrival to J1-2 NPO after midnight Continue following all medication guidelines Patient instructed to call back to acknowledge phone call. Phone number provided. [facility]09-11-2024 Miscellaneous Notes* Telephone Encounter - Krys Fountain - 05/15/2024 12:29 PM EDT Attempted patient and twice. Called and LVM W/ the following arrival instructions: 1:00 PM arrival to J1-2 NPO after midnight Continue following all medication guidelines Patient instructed to call back to acknowledge phone call. Phone number provided. documented in this encounterPremier Health09-09-2024 History of Present illness Narrative* Asuncion Rossi RN - 05/13/2024 2:41 PM EDT PRIMARY CARE COORDINATION QUICK NOTE Provider Action/FYI [facility]- noted. Asuncion Rossi RN May 13, 2024 2:41 PM * Cony Desai MA - 05/13/2024 2:15 PM EDT POPULATION HEALTH NAVIGATION OUTREACH Action/FYI Message from Awilda states: Undergoing fistulogram/consult appointment today Reason for Outreach Medical Neighborhood: [facility] ADT Encounter: No Patient identified by [...] 13, 2024 2:15 PM documented in this encounterPremier Health09-06-2024 Telephone encounter Note * Telephone Encounter - Krys Fountain - 05/10/2024 3:12 PM EDT Called patient to ask if surgery date could be moved form 05/14 to 05/16. Patient is agreeable. Informed her we would call the day prior with arrival instructions. [facility]09-06-2024 Miscellaneous Notes* Telephone Encounter - Krys Fountain - 05/10/2024 3:12 PM EDT Called patient to ask if surgery date could be moved form 05/14 to 05/16. Patient is agreeable. Informed her we would call the day prior with arrival instructions. documented in this encounterPremier Health09-06-2024 Telephone encounter Note * Telephone Encounter - [...] Nguyen LPN May 10, 2024 2:55 PM [facility]09-06-2024 Miscellaneous Notes* Telephone Encounter - Treva Nguyen [...] 10, 2024 2:55 PM documented in this encounterPremier Health09-04-2024 History of Present illness Narrative* Vita Purdy [...] patient education: 20 minutes. documented in this encounterPremier Health09-04-2024 History of Present illness Narrative* Del Hernandez [...] COVID-19 vaccine, age 12+ yr, 2022- season ([employer]) 02/23/2023 Postponed until 02/24/2024 by Edie Samayoa LPN (Declined at this time) 10/13/2022 Imm Admin: COVID-19 original vaccine, age 12+ yr, monovalent ([employer]) Only the first [...] 50% calcification bilaterally. 05/16/2019: ESRD on dialysis ([facility]) No date: GERD (gastroesophageal reflux disease) No [...] HTN (hypertension) 09/04/1999: Hyperlipidemia 07/25/2019: Hypertrophic cardiomyopathy ([facility]) Comment: echo in 2023 confirms 40mmhg gradient with valsalva 03/30/2012: Hypothyroid 06/14/2013: Proteinuria 06/12/2007: Renal colic 06/20/2023: Secondary hyperparathyroidism of renal origin ([facility]) 05/17/2019: Steal syndrome dialysis vascular access ([facility]) No date: Thyroid disorder 06/2019: TIA (transient ischemic attack) 11/15/2022: Tubular adenoma of colon 09/04/1985: Type II or unspecified type diabetes mellitus without mention of complication, not stated as uncontrolled 06/01/2023: Ventral hernia with bowel obstruction PAST SURGICAL HISTORY 1993: APPENDECTOMY 04/20/2020: AV ANASTOMIES OPEN;BY BASILIC VEIN WINN; Right Comment: transpose basilic vein fistula, R arm 10/04/2017: AV FISTULA OR GRAFT VENOUS; Left 09/20/2018: AV FISTULA OR GRAFT VENOUS; Left Comment: redo, failure to mature 04/21/2021: AV FISTULA OR GRAFT VENOUS; Right 2005: BOWEL RESECTION HX 1985: CHOLECYSTECTOMY Comment: Cholecystectomy 11/15/2022: COLONOSCOPY SCREENING 2006: COLOSTOMY/SKIN LEVEL CECOSTOMY Comment: [id number], reversed 2007 11/14/2019: CREATION OF AVF, PERCUTANEOUS [...] Cataract removed 1990: REDUCTION OF LARGE BREAST 1985: SALPINGECTOMY OR [...] lung cancer Coronary Artery Disease Brother dec. [place] 57 y.o. No Known Problems Maternal Grandmother [...] 01/18/24 11:28 AM Impression Sinus rhythm Prolonged ME interval Right bundle branch block/LAHB LVH with [...] Impression IMPRESSION: Stable exam without acute findings. Yoker: LINO Transcribe Date/Time: Oct 27 2023 12:45P [...] 5:16 PM Pager/Contact #: documented in this encounterPremier Health09-04-2024 History of Present illness Narrative* Luna Thomas MD - 05/08/2024 3:48 PM EDT [facility] STAFF PHYSICIAN NOTE OF PERSONAL [...] not included. Heart , Vascular and Thoracic [place] DEPARTMENT OF VASCULAR SURGERY OUTPATIENT VISIT DATE [...] kidney disease) stage V requiring chronic dialysis ([facility]) Comment: Dr. Pendleton, nephrology. No date: Congestive heart failure (HCC) No date: Constipation 09/04/2006: Depression 03/27/2023: Encounter for screening for stenosis of carotid artery Comment: Less then 50% calcification bilaterally. 05/16/2019: ESRD on dialysis ([facility]) No date: GERD (gastroesophageal reflux disease) No [...] (HCC) 05/17/2019: Steal syndrome dialysis vascular access ([facility]) No date: Thyroid disorder 06/2019: TIA (transient ischemic attack) 11/15/2022: Tubular adenoma of colon 09/04/1985: Type II or unspecified type diabetes mellitus without mention of complication, not stated as uncontrolled 06/01/2023: Ventral hernia with bowel obstruction PAST SURGICAL HISTORY 1993: APPENDECTOMY 04/20/2020: AV ANASTOMIES OPEN;BY BASILIC VEIN WINN; Right Comment: transpose basilic vein fistula, R arm 10/04/2017: AV FISTULA OR GRAFT VENOUS; Left 09/20/2018: AV FISTULA OR GRAFT VENOUS; Left Comment: redo, failure to mature 04/21/2021: AV FISTULA OR GRAFT VENOUS; Right 2005: BOWEL RESECTION HX 1984: CHOLECYSTECTOMY Comment: Cholecystectomy 11/15/2022: COLONOSCOPY SCREENING 2006: COLOSTOMY/SKIN LEVEL CECOSTOMY Comment: [id number], reversed 2007 11/14/2019: CREATION OF AVF, PERCUTANEOUS [...] No history of dysuria, frequency or incontinence HEATING TECHNICIAN: Negative for abnormal vaginal bleeding, abnormal vaginal [...] right extremity venogram with possible intervention. Vilma Coffey DPM PGY-1 SIGNATURE: Luna Thomas MD PATIENT NAME: Sandy Bhatti DATE: May 08, 2024 TIME: 3:42 PM * Luna Thomas MD - 05/08/2024 3:33 PM EDT xx documented in this encounterPremier Health08-22-2024 History of Present illness Narrative* Syeda Frost RN - 04/25/2024 10:17 AM EDT [facility] Telephonic Outreach Provider Action/FYI Contacted for: Routine Telephonic Outreach Contact made with patient: No, unable to leave message. Will reattempt call Syeda Frost RN April 25, 2024 10:17 AM * Syeda Frost RN - 04/24/2024 5:09 PM EDT [facility] Telephonic Outreach Provider Action/FYI Contacted for: Routine Telephonic Outreach Contact made with patient: No, unable to leave message. Will reattempt call Syeda Frost RN April 24, 2024 5:10 PM documented in this encounterPremier Health08-19-2024 Telephone encounter Note * Telephone Encounter - Asuncion Pinedo - 04/22/2024 1:30 PM EDT Referring Physician: ? Requesting Physician: Dr. Radha Thomas Diagnosis: Fistulagram due to high arterial pressure arm/hand swelling and diminished BT Records scanned into EPIC [facility]08-19-2024 Miscellaneous Notes* Telephone Encounter - Asuncion Pinedo - 04/22/2024 1:30 PM EDT Referring Physician: ? Requesting Physician: Dr. Radha Thomas Diagnosis: Fistulagram due to high arterial pressure arm/hand swelling and diminished BT Records scanned into EPIC documented in this encounterPremier Health08-07-2024 History of Present illness Narrative* Tea Tierney [...] 10, 2024 4:01 PM documented in this encounterPremier Health07-26-2024 History of Present illness Narrative* Syeda Frost [...] pounds in a week? No Based on jewelry salesperson, the following disposition is advised: No symptoms or symptoms present, not severe. Routed to: No Action Needed JEANNETTE Education Provided this Outreach: No Syeda Frost RN March 29, 2024 2:55 PM documented in this encounterPremier Health06-27-2024 History of Present illness Narrative* Maldonado Raza MD - 02/29/2024 3:38 PM EDT This note was created using PurePlayriter. Subjective Sandy Bhatti is a 59 year [...] complication, with long-term current use of insulin ([facility]) - ICD9: 250.00, V58.67, ICD10: E11.9, Z79.4 [...] 25 MG TABLET 6. ESRD on dialysis (HCC) - ICD9: [...] Pickett. Maldonado Raza MD documented in this encounterPremier Health06-24-2024 History of Present illness Narrative* Syeda Frost [...] pounds in a week? No Based on jewelry salesperson, the following disposition is advised: No symptoms or symptoms present, not severe. Routed to: No Action Needed JEANNETTE Education Provided this Outreach: No Syeda Frost RN February 26, 2024 12:28 PM documented in this encounterPremier Health06-11-2024 NoteDate of Procedure 02/13/2024. Hoist Mechanic Information Heel Cementer: Susie Blunt. Start time: 1:37 PM. Stop time: 1:37 PM. Notes s/p dmek graft attached no [id number] History of Present illness Narrative* Héctor Cruz [...] OS remove BCL remove one suture at SL today Still very limited vision OS - [...] to every day at thattime and continue assisted can return to me in 6-9 months [...] components. Héctor Cruz MD documented in this encounterPremier Health05-22-2024 History of Present illness Narrative* Syeda Frost [...] pounds in a week? No Based on jewelry salesperson, the following disposition is advised: No symptoms or symptoms present, not severe. Routed to: No Action Needed JEANNETTE Education Provided this Outreach: No Syeda Frost RN January 24, 2024 10:48 AM documented in this encounterPremier Health05-16-2024 NoteHNO ID: [id number] Author: CHET MILAN RN Service: Nursing Author Type: Registered Nurse Type: Nursing Progress Note Filed: 01/18/2024 15:36 Note Text: [id number] Pt to recovery room s/p right arm fistulagramGaebler Children'S [id number] Telephone encounter Note* Telephone Encounter - Leola Huffman RN - 01/17/2024 10:45 AM EDT Procedure date: 01/18/24 Spoke with: Patient Arrival time: 1130 Hospital: [facility] first: Yes NPO time: 0530 Must have responsible adult 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 May take Blood pressure and heart medications in the morning with small sip of water. Pt verbalized understanding. All questions answered. 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 May take Blood pressure and heart medications in the morning with small sip of water. Pt verbalized understanding. All questions answered. Leola Huffman RN documented in this encounterPremier Health05-09-2024 Telephone encounter Note * Telephone Encounter - Joyce Silva - 01/11/2024 2:28 PM EDT Patient's spouse, Warren returned call and confirmed 01/17 procedure date. [facility]05-09-2024 Miscellaneous Notes* Telephone Encounter - Joyce Silva - 01/11/2024 2:28 PM EDT Patient's spouse, Warren returned call and confirmed 01/17 procedure date. * Telephone Encounter - Sanjana Berger - 01/11/2024 2:26 PM EDT Left message for patient to call office to confirm fistulagram on 01/18/2024 documented in this encounterPremier Health05-09-2024 Telephone encounter Note * Telephone Encounter - Sanjana Berger - 01/11/2024 2:26 PM EDT Left message for patient to call office to confirm fistulagram on 01/18/2024 [facility] Work Phone: 1(437) 907-535005-09-2024 Telephone encounter Note* Telephone Encounter - Shayy Garcia RN - 01/11/2024 2:14 PM EDT Received a message to schedule for R AVG fistulogram Surgical case request filled out and sent to schedulers Shayy Bello RN [facility]05-09-2024 Miscellaneous Notes* Telephone Encounter - Shayy Garcia RN - 01/11/2024 2:14 PM EDT Received a message to schedule for R AVG fistulogram Surgical case request filled out and sent to schedulers Shayy Bello RN * Telephone Encounter - Lakshmi Davies RN - 01/11/2024 1:22 PM EDT Vascular Surgery Access Center Dialysis Center/Dialysis Center Contact: Awilda Lemons [phone] [only open Mon, Weds, Fri] Outside Rn Licensed Practical Contact (name, number) Were you able to be Dialyzed? Yes Does the patient have a thrill? Yes Type of Access: AV Graft Location: RUE Problem: Edema Recent Intervention (30 days): No CC Vascular Surgeon/Office/Location: Dr Thomas at [facility], however last office visit was 05/25/21 Patient Location/Patient phone number: Home - see Epic NPO since n/a (Please instruct caller to make patient NPO now) Is the patient on any anticoagulation? no If yes, date and time of last dose n/a (Include anticoagulation instructions under comments) Comments Received voicemail from Evelina (call back number she left in the message [phone]) requesting pt be set up for a [...] her. Lakshmi Davies RN documented in this encounterPremier Health05-09-2024 Telephone encounter Note * Telephone Encounter - Lakshmi Davies RN - 01/11/2024 1:22 PM EDT Vascular Surgery Access Center Dialysis Center/Dialysis Center Contact: Awilda Lemons [phone] [only open Mon, Weds, Fri] Outside Rn Licensed Practical Contact (name, number) Were you able to be Dialyzed? Yes Does the patient have a thrill? Yes Type of Access: AV Graft Location: RUE Problem: Edema Recent Intervention (30 days): No CC Vascular Surgeon/Office/Location: Dr Thomas at [facility], however last office visit was 05/25/21 Patient Location/Patient phone number: Home - see Epic NPO since n/a (Please instruct caller to make patient NPO now) Is the patient on any anticoagulation? no If yes, date and time of last dose n/a (Include anticoagulation instructions under comments) Comments Received voicemail from Evelina (call back number she left in the message [phone]) requesting pt be set up for a [...] information sent to her. Lakshmi Davies, RN [facility] Work Phone: 1(711) 476-237805-07-2024 Telephone encounter Note* Telephone Encounter - Eve [...] of its relevant components. Héctor Cruz MD [facility]05-07-2024 Miscellaneous Notes* Telephone Encounter - Eve Lawson [...] components. Héctor Cruz MD documented in this encounterPremier Health05-07-2024 Telephone encounter Note * Telephone Encounter - Eve Lawson - 01/09/2024 10:11 AM EDT Images from the original note were not included. 11/22/23 FV: 02/13/24 Sandy Ramirez [facility] (supporting Héctor Cruz MD)3 [...] of its relevant components. Héctor Cruz MD [facility]05-07-2024 Miscellaneous Notes* Telephone Encounter - Eve Lawson - 01/09/2024 10:11 AM EDT Images from the original note were not included. 11/22/23 FV: 02/13/24 Sandy Ramirez [facility] (supporting Héctor Cruz MD)3 [...] components. Héctor Cruz MD documented in this encounterPremier Health05-07-2024 Telephone encounter Note * Telephone Encounter - Edie Samayoa LPN - 01/09/2024 8:24 AM EDT Left message on identified vm that Patient has a refill on Clonidine, Levothyroxine and Lisinopril,advised to check with [facility]. Edie Samayoa LPN [facility]05-07-2024 Miscellaneous Notes* Telephone Encounter - Edie Samayoa LPN - 01/09/2024 8:24 AM EDT Left message on identified vm that Patient has a refill on Clonidine, Levothyroxine and Lisinopril,advised to check with [facility]. Edie Samayoa LPN documented in this encounterPremier Health05-06-2024 History of Present illness Narrative* Syeda Frost [...] to talk about today? Yes Based on jewelry salesperson, the following disposition is advised: No symptoms or symptoms present, not severe. Routed to: No Action Needed Syeda Frost RN January 08, 2024 4:45 PM documented in this encounterPremier Health05-06-2024 History of Present illness Narrative* Cony Desai MA - 01/08/2024 2:26 PM EDT [facility] Telephonic Outreach Provider Action/FYI Noted Thank you Contacted for: Syeda Frost RN January 08, 2024 2:26 PM * Cony Desai MA - 01/08/2024 2:12 PM EDT POPULATION HEALTH NAVIGATION OUTREACH Action/FYI Noted by PCC Navigation Signature: Cony Desai MA January 10, 2024 2:59 PM POPULATION HEALTH NAVIGATION OUTREACH Action/FYI Message from Awilda states: Arm and hand swelling in access arm; Patient being referred to access surgeon to diagnose problem Reason for Outreach Medical Neighborhood: [facility] Patient identified by name and : [...] 08, 2024 2:12 PM documented in this encounterPremier Health04-12-2024 History of Present illness Narrative* Syeda rFost RN - 12/15/2023 2:24 PM EDT CDM [...] 12, 2023 11:02 AM documented in this encounterPremier Health04-08-2024 History of Present illness Narrative* Syeda Frost RN - 12/11/2023 4:33 PM EDT [facility] Telephonic Outreach Provider Action/FYI Noted, Thank You [...] ongoing issues Reason for Outreach Medical Neighborhood: [facility] Patient identified by name and : [...] 11, 2023 3:39 PM documented in this encounterPremier Health04-08-2024 Miscellaneous Notes* Telephone Encounter - Eve Lawson [...] components. Héctor Cruz MD documented in this encounterPremier Health04-04-2024 History of Present illness Narrative* Dave Pickett [...] failure (HCC) 01/14/2018 Anxiety Arterial steal syndrome ([facility]) 12/2018 Left AVF ASCVD (arteriosclerotic cardiovascular disease) 05/10/2012 Asymmetric septal hypertrophy ([facility]) 07/25/2019 Calculus of ureter 06/12/2007 CKD (chronic kidney disease) stage V requiring chronic dialysis ([facility]) 03/01/2018 Dr. Pendleton, nephrology. Congestive heart failure (HCC) Constipation Depression 09/04/2006 Encounter for screening for stenosis of carotid artery 03/27/2023 Less then 50% calcification bilaterally. ESRD on dialysis ([facility]) 05/16/2019 GERD (gastroesophageal reflux disease) Hemorrhoids History [...] colic 06/12/2007 Secondary hyperparathyroidism of renal origin ([facility]) 06/20/2023 Steal syndrome dialysis vascular access ([facility]) 05/17/2019 Thyroid disorder TIA (transient ischemic attack) 06/2019 Tubular adenoma of colon 11/15/2022 Type II or unspecified type diabetes mellitus without mention of complication, not stated as uncontrolled 09/04/1985 Ventral hernia with bowel obstruction 06/01/2023 VT (ventricular tachycardia) ([facility]) 05/17/2019 History: Per patient, has history of excited rhythm. Sees a medical practice manager in [place], last seen in January 2019. No concerns. [...] COLONOSCOPY SCREENING 11/15/2022 COLOSTOMY/SKIN LEVEL CECOSTOMY 2007 [id number], reversed 2006 CREATION OF AVF, PERCUTANEOUS USING [...] lung cancer Coronary Artery Disease Brother dec. [place] 57 y.o. No Known Problems Maternal Grandmother [...] In a pictorial format; I described the ME and QRS intervals. This was to show [...] one hundred percent of my time in muip-nh-swft conversation with the patient. I answered all the questions and explained the diagnosis of hypertension chronic kidney disease atherosclerosis 40mm gradient across the aortic outflow tract with Valsalva suggesting mild IHSS. Will get an echocardiogram in 2018 2023 this remains unchanged. Greater that 51% of my time was spent with [id number] conversation with the patient. I have discussed [...] record. Dave Pickett DO documented in this encounterPremier Health03-20-2024 History of Present illness Narrative* Héctor Cruz [...] components. Héctor Cruz MD documented in this encounterPremier Health03-20-2024 Instructions* Patient Instructions* Héctor Cruz MD - 11/22/2023 1:46 PM EDT INSTRUCTIONS UNTIL NEXT VISIT: CONTINUE PREDNISOLONE BUT DECREASE TO TWO TIMES DAILY CONTINUE CIPROFLOXACIN BUT DECREASE TO TWO TIMES DAILY STOP KETOROLAC STOP ERYTHROMYCIN documented in this encounterPremier Health03-19-2024 Miscellaneous Notes* Telephone Encounter - Eve Lawson [...] components. Héctor Cruz MD documented in this encounterPremier Health03-14-2024 History of Present illness Narrative* Héctor Cruz [...] with all of its relevant components. Héctor Crzu MD documented in this encounterPremier Health03-08-2024 Miscellaneous Notes* Telephone Encounter - Eve Lawson [...] right H25.11 New patient Last exam with [facility] ~02/2023 Descemet's Folds, OU (OS>OD) Highly irregular Pentacam OU Pseudophakia, OS S/p CEIOL 02/2023 ([facility]) Patient states vision has been blurry since [...] already been dilated Reviewed records from Dr. Chenevey Best postoperative vision left eye was 20/100, [...] components. Héctor Cruz MD documented in this encounterPremier Health03-06-2024 History of Present illness Narrative* Syeda Frost [...] pounds in a week? No Based on jewelry salesperson, the following disposition is advised: No symptoms or symptoms present, not severe. Routed to: No Action Needed JEANNETTE Education Provided this Outreach: No Syeda Frost RN November 08, 2023 2:29 PM documented in this encounterPremier Health02-22-2024 History of Present illness Narrative* Marnie Zamora [...] PATIENT PRESENTS WITH AN IMPLANTABLE OR ATTACHED BUSINESS ADMINISTRATOR: No RADIOLOGY DEPARTMENT: General X-ray: Exam(s) Completed: Chest X-Ray PERIPHERAL IV DATA: Not applicable SIGNED BY: RT Robert(R) October 26, 2023 1:56 PM documented in this encounterPremier Health02-22-2024 History of Present illness Narrative* Maldonado Raza MD - 10/26/2023 1:25 PM EST This note was created using PurePlayriter. Subjective Consultation requested by Dr. Héctor Cruz [...] MEDICAL HISTORY Diagnosis Date Acute kidney failure ([facility]) 01/14/2018 Anxiety Arterial steal syndrome ([facility]) 12/2018 Left AVF ASCVD (arteriosclerotic cardiovascular disease) 05/10/2012 Asymmetric septal hypertrophy ([facility]) 07/25/2019 Calculus of ureter 06/12/2007 Carotid disease, bilateral ([facility]) 03/27/2023 CKD (chronic kidney disease) stage V requiring chronic dialysis ([facility]) 03/01/2018 Dr. Pendleton, nephrology. Congestive heart failure ([facility]) Constipation Depression 09/04/2006 ESRD on dialysis ([facility]) 05/16/2019 GERD (gastroesophageal reflux disease) Hemorrhoids HTN (hypertension) 09/04/2001 Hyperlipidemia 09/04/1999 Hypertrophic cardiomyopathy ([facility]) 07/25/2019 Hypothyroid 03/30/2012 Proteinuria 06/14/2013 Renal colic 06/12/2007 Secondary hyperparathyroidism of renal origin ([facility]) 06/20/2023 Steal syndrome dialysis vascular access ([facility]) 05/17/2019 Thyroid disorder TIA (transient ischemic attack) 06/2019 Tubular adenoma of colon 11/15/2022 Type II or unspecified type diabetes mellitus without mention of complication, not stated as uncontrolled 09/04/1985 Ventral hernia with bowel obstruction 06/01/2023 VT (ventricular tachycardia) ([facility]) 05/17/2019 History: Per patient, has history of excited rhythm. Sees a medical practice manager in [place], last seen in January 2019. No concerns. [...] COLONOSCOPY SCREENING 11/15/2022 COLOSTOMY/SKIN LEVEL CECOSTOMY 2007 [id number], reversed 2007 CREATION OF AVF, PERCUTANEOUS USING [...] last echocardiogram. Outpatient follow up recommended from June admission. Hypertrophic cardiomyopathy history. - ECHO - PERFLUTREN LIPID MICROSPHERES 1.1 MG/ML INJECTION IN NS 10 ML - SODIUM CHLORIDE 0.9 % (FLUSH) INJECTION SYRINGE 10. Idiopathic corneal edema of both eyes - ICD9: 371.21, ICD10: H18.223 For surgery 11/08/22. Maldonado Raza MD documented in this encounterPremier Health02-09-2024 Miscellaneous Notes* Telephone Encounter - Pranav Domínguez - 10/13/2023 3:00 PM ESTSummary: Voicemail left for surgery I attempted to contact the patient to reschedule her previous surgery. I left a detailed message with the tentative date of 11/09/2023. My contact information and a [place] message was sent as well. documented in this encounterPremier Health02-02-2024 History of Present illness Narrative* Syeda Frost [...] pounds in a week? No Based on jewelry salesperson, the following disposition is advised: No symptoms [...] 05, 2023 1:44 PM documented in this encounterPremier Health11-27-2023 History of Present illness Narrative* Syeda Frost [...] pounds in a week? 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 May take Blood pressure and heart medications in the morning with small sip of water. documented in this encounterPremier Health10-30-2023 Miscellaneous Notes* Telephone Encounter - Cony Larson - 07/03/2023 10:43 AM EDT Pt has a cold- rescheduled to 07/18. documented in this encounterPremier Health10-26-2023 History of Present illness Narrative* Maldonado Raza MD - 06/29/2023 1:53 PM EDT This note was created using PurePlayriter. Subjective Transitional Care Management Progress Note The [...] Complication, With Long-Term Current Use of Insulin ([facility]) Htn (Hypertension) Hyperlipidemia Hypothyroid Ascvd (Arteriosclerotic Cardiovascular Disease) Proteinuria Esrd On Dialysis ([facility]) VT (ventricular tachycardia) Tubular Adenoma of Colon Hyperkalemia Secondary Hyperparathyroidism of Renal Origin ([facility]) Abnormal Ekg Current Outpatient Medications Medication Sig [...] vaccine - ICD9: V04.89, ICD10: Z23 - PFIZER-BIONTECH COVID-19 VACCINE ( [place]) AGE 12+ YR Maldonado Raza MD * Edie Samayoa LPN - 06/29/2023 1:48 PM EDT Images from the original note were not included. Patient Outreach 06/22/2023 Electric Utility Lineworker Management Mireya Gross RN Transition Of Care [...] for Outreach Community Monitoring Pool Payer: Payor: [facility] MEDICARE / Plan: [facility] DUAL COMPLETE HMO POS SNP / [...] will schedule hemodialysis Monday and Monday Stacey Kemmerer 530 am chair time Pt. Reports doing [...] TCM Home Visit Referral Source of Stratification: [facility] Admission Status: Discharged Readmission Risk Score: [...] RN and I am calling from the [facility] on behalf of your PCP,Maldonado Raza MD [...] like to speak with a social work cafeteria team leader to help give you support for any [...] I will send your request to a shirrer who will contact and assist you with that appointment. This will give you an opportunity to ask any questions or address any concerns youmay have with your PCP. Inform the patient that if they have any questions or concerns prior to that appointment, to call their PCP's office right away. ACTION TAKEN: Patient desires an appointment - Routed to [facility] [[id number]] for schedulingtelehealth visit (telephonic, virtual visit, or [...] All Conversations on this Encounter Pharmacy Benefits [employer] ([employer]) Covered: Retail, Mail Order Unknown: Specialty, Long-Term Care Group ID: [id number] Group name: MEDICARE BIN: [id number] PCN: [id number] : 1965 Legal sex: F Address: [address] [place] [address] Other Plans SANDY BHATTI - MEDICAID ([facility]) Travel Screening and History Disease Screening No documentation. Travel No documentation. Historical Audiology Exams No historic audiology exams found. Orders Placed None Medication Changes None Medication List Visit Diagnoses None Problem List documented in this encounterPremier Health10-24-2023 Miscellaneous Notes* Telephone Encounter - Vilma Morales RN - 06/27/2023 10:[address] Barros left voice message for patient to call office for follow up visit following recent admission at . documented in this encounterPremier Health10-24-2023 Instructions* Patient Instructions* Maty Krause COT - 06/27/2023 10:12 AM EDT INSTRUCTIONS FOR SCHEDULING SURGERY: CONTACT DR. CRUZ'S SOFTWARE QUALITY SPECIALIST: PRANAV EDGE AT [phone] (9AM-5PM, MONDAY-MONDAY) Please wait 24 hours after your appointment to contact Pranav - IF YOU RECEIVE VOICEMAIL, PLEASE LEAVE A MESSAGE AND WE WILL RETURN YOUR CALL - MY SENIOR CENTER MANAGER WILL INFORM YOU IF ANY ADDITIONAL PREOPERATIVE [...] OR QUESTIONS, CALL DR. CRUZ'S OFFICE AT [phone] (PRESS 0TO BYPASS THE AUTOMATED GREETING AND BE TRANSFERRED TO AN GOLF COURSE DESIGNER) documented in this encounterPremier Health10-24-2023 History of Present illness Narrative* Héctor Cruz MD - 06/27/2023 9:08 AM EDT Encounter Diagnosis ICD-10-CM 1. Idiopathic corneal edema, bilateral H18.223 CORNEAL TOPOGRAPHY PENTACAM OU (BOTH EYES) ECC/CONFOCAL MICROSCOPY OU (BOTH EYES) 2. Controlled type 2 diabetes mellitus without complication, with long-term current use of insulin ([facility]) E11.9 CORNEAL TOPOGRAPHY PENTACAM OU (BOTH EYES) Z79.4 OCT MACULA CIRRUS OU (BOTH EYES) 3. Pseudophakia Z96.1 4. PCO (posterior capsular opacification), left H26.492 5. Senile nuclear cataract, right H25.11 New patient Last exam with [facility] ~02/2023 Descemet's Folds, OU (OS>OD) Highly irregular Pentacam OU Pseudophakia, OS S/p CEIOL 02/2023 ([facility]) Patient states vision has been blurry since [...] components. Héctor Cruz MD documented in this encounterPremier Health10-19-2023 History of Present illness Narrative* Rakesh Population Health NavigatorEvelina - 06/22/2023 12:15 PM EDT [...] for Outreach Community Monitoring Pool Payer: Payor: [facility] MEDICARE / Plan: [facility] DUAL COMPLETE HMO POS SNP / [...] due on 07/05/2023 Navigation Signature: Evelina Cameron [facility] Health Navigator June 22, 2023 12:15 PM Electronically signed by Rakesh [facility] [place] NavigatorEvelina at 06/22/2023 12:16 PM EDT * [...] IMAGING FOLLOW-UP: Echocardiogram to ordered by Dr. Lawsons - pt. Aware and will schedule LABS AND PROCEDURES PENDING AT DISCHARGE: No FOLLOW UP: With PCP, cardiology, and vascular surgery- pt. Aware and will schedule hemodialysis Monday and Monday Stacey Kemmerer 530 am chair time Pt. Reports doing [...] TCM Home Visit Referral Source of Stratification: [facility] Admission Status: Discharged Readmission Risk Score: [...] RN and I am calling from the [facility] on behalf of your PCP,Maldonado Raza MD [...] like to speak with a social work cafeteria team leader to help give you support for any [...] I will send your request to a shirrer who will contact and assist you with that appointment. This will give you an opportunity to ask any questions or address any concerns youmay have with your PCP. Inform the patient that if they have any questions or concerns prior to that appointment, to call their PCP's office right away. ACTION TAKEN: Patient desires an appointment - Routed to [facility] [[id number]] for schedulingtelehealth visit (telephonic, virtual visit, or [...] Education Ordered -: No documented in this encounterPremier Health10-19-2023 Miscellaneous Notes* Telephone Encounter - Shyann Walsh - 06/22/2023 9:05 AM EDT Called patient to reschedule RUE fistulagram. Patient did not want 06/27, agreed to 07/04 at [employer]. Patient states she is able to dialyze and can wait. Needs first case since she is diabetic. Reviewed all laboratory worker instructions, patient verbalized understanding. Patient states she takes asa and was told to hold only on day of procedure. Routing to AVW nurse pool to confirm holding instructions. documented in this encounterPremier Health10-18-2023 NoteHNO ID: [id number] Author: Ember Raphael RN Service: Dialysis Author Type: Registered Nurse [...] Hemodialysis PATIENT NAME: Sandy Bhatti PATIENT LOCATION: [id number] [address]* READINESS TO LEARN COGNITIVE ABILITY: Alert and [...] of Care Visit completed when applicable. Ember Raphael, [facility]10-18-2023 NoteHNO ID: [id number] Author: Mason Nguyễn MD Service: Vascular Surgery [...] 21, 2023 TIME: 11:20 AM PAGER/CONTACT #: [id number] NoteHNO ID: [id number] Author: Aneta Busch RN Service: Dialysis Author [...] PATIENT NAME: Sandy Bhatti PATIENT LOCATION: [facility]VENT[facility] RESEARCH ENGINEER POOL/[facility] CATH* READINESS TO LEARN COGNITIVE ABILITY: [...] RN. Transport contacted. Pt transported in stable condition.[facility] [id number] History of Past illness Narrative* Problem Noted [...] of this encounter (statuses as of 10/07/2023) [facility]10-17-2023 History of Past illness Narrative* Problem Noted [...] of this encounter (statuses as of 10/13/2023) [facility]10-17-2023 History of Past illness Narrative* Problem Noted [...] of this encounter (statuses as of 10/29/2023) [facility]10-17-2023 History of Past illness Narrative* Problem Noted [...] of this encounter (statuses as of 11/08/2023) [facility]10-17-2023 History of Past illness Narrative* Problem Noted [...] of this encounter (statuses as of 11/10/2023) [facility]10-17-2023 History of Past illness Narrative* Problem Noted [...] of this encounter (statuses as of 11/16/2023) [facility]10-17-2023 History of Past illness Narrative* Problem Noted [...] of this encounter (statuses as of 11/21/2023) [facility]10-17-2023 History of Past illness Narrative* Problem Noted [...] of this encounter (statuses as of 11/22/2023) [facility]10-17-2023 History of Past illness Narrative* Problem Noted [...] of this encounter (statuses as of 12/11/2023) [facility]10-17-2023 History of Past illness Narrative* Problem Noted [...] of this encounter (statuses as of 12/12/2023) [facility]10-17-2023 History of Past illness Narrative* Problem Noted [...] of this encounter (statuses as of 12/15/2023) [facility]10-17-2023 NoteHNO ID: [id number] Author: Denis Higgins MD Service: Vascular Surgery Author Type: Resident Type: Plan of Care Filed: 06/20/2023 11:12 AM Note Text: VASCULAR SURGERY PLAN OF CARE NOTE Sandy Bhatti [id number] 06/20/2023 11:07 AM Patient presented for elective RUE fistulogram. Pre-op EKG was concerning for possible inferior STEMI and K was 6.3. Patient asymptomatic throughout Cardiology consulted and Dr. Barros evaluated the the patient instantly and reassured that the KG is not concerning for a STEMI. But recommended to attempt dialysis and he will follow the patient. Patient to be admitted from laboratory worker to medicine ( Dr. Coffman accepted). Our [...] F Higgins MD Vascular [place], PGY 2 [id number] Miscellaneous Notes* Telephone Encounter - Aram Eduardo MD - 06/20/2023 10:20 AM EDT Sandy Bhatti is a 58 year old female, fistula gram scheduled today. Pt. Is complaining of SOB Pre op EKG possible inferior STEMI, medical practice manager dr. Barros was called and said no STEMI . And the EKG changes related to fluid overload. BMP K 6.2 . 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 May take Blood pressure and heart medications in the morning with small sip of water. documented in this encounterPremier Health10-09-2023 Miscellaneous Notes* Telephone Encounter - Ania Rey LPN - 06/12/2023 4:56 PM EDT [facility] calling and states Insurance will only cover Humalog instead of Novolog.Please send to Pharmacy. 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 Pendleton, nephrology. Constipation Depression 09/04/2006 GERD (gastroesophageal reflux disease) Hemorrhoids HTN (hypertension) 09/04/2001 Hyperlipidemia 09/04/1999 Hypertrophic cardiomyopathy ([facility]) Proteinuria 06/14/2013 Renal colic 06/12/2007 Steal syndrome dialysis vascular access ([facility]) 05/17/2019 Recent increased left arm swelling, which [...] stated as uncontrolled 09/04/1985 VT (ventricular tachycardia) ([facility]) 05/17/2019 History: Per patient, has history of excited rhythm. Sees a medical practice manager in [place], last seen in January 2019. No concerns. [...] COLONOSCOPY SCREENING 11/15/2022 COLOSTOMY/SKIN LEVEL CECOSTOMY 2007 [id number], reversed 2006 CREATION OF AVF, PERCUTANEOUS USING [...] lung cancer Coronary Artery Disease Brother dec. [place] 57 y.o. No Known Problems Maternal Grandmother [...] plan. Ifeoma Schneider APRN.CNP documented in this encounterPremier Health10-03-2023 History of Present illness Narrative* Syeda Frost RN - 06/06/2023 5:48 PM EDT CDM Telephonic Outreach Provider Action/FYI CDM: CKD ESRD Spk with Pt she noted Adm 05/31/23-06/06/23 to [facility] outside hospital for a Hernia repair, Instructed to call surgeon/ PCP with signs of infection or symptom concerns or needs.. Contacted for: Routine Telephonic Outreach Contact made with patient: Yes Patient identified by name and date of . Discussed care with patient Are you experiencing any new or worsening symptoms you need to talk about today? Yes Based on jewelry salesperson, the following disposition is advised: No symptoms or symptoms present, not severe. Routed to: No Action Needed JEANNETTE Education Provided this Outreach: No Syeda Frost RN June 06, 2023 5:50 PM documented in this encounterPremier Health10-03-2023 Miscellaneous Notes* Telephone Encounter - Sanjana Berger - 06/06/2023 11:58 AM EDT Dialysis Center Name: [facility] Dialysis Center Contact (Name/Number): [phone] Was patient able to dialyze: YES Days/Times patients dialyzes:MWF Does the patient have a thrill:YES Type of Access: AV GRAFT Location (LUE/RUE/etc):RUE Problem:ARM SWELLING UNABLE TO BEND FINGERS Recent Intervention (within 30 days): NO Patient location & phone number (mcfp): HOME Is the patient on asa/blood thinners:NO Patient s [facility] Vascular Surgeon: JUAN F Milner (can patient be scheduled for fistulogram or sent to ER) FISTULAGRAM documented in this encounterPremier Health09-25-2023 Miscellaneous Notes* Telephone Encounter - Treva Nguyen LPN - 05/29/2023 12:34 PM EDT Patient requesting that this be sent to a different pharmacy. Last office visit: 02/23/23 Next appointment scheduled: No future appointments scheduled at this time. Last labs: 04/10/23 documented in this encounterPremier Health08-12-2023 Miscellaneous Notes* Telephone Encounter - Artemio Schafer [...] of Last Labs: 02/23/2023 documented in this encounterPremier Health08-08-2023 History of Present illness Narrative* Syeda Frost [...] pounds in a week? No Based on jewelry salesperson, the following disposition is advised: No symptoms or symptoms present, not severe. Routed to: No Action Needed JEANNETTE Education Provided this Outreach: No Syeda Frost, JESSICA April 11, 2023 3:08 PM documented in this encounterPremier Health08-04-2023 Miscellaneous Notes* Telephone Encounter - Tessa Ludwig - 04/07/2023 12:02 PM EDT Spoke with patient and gave her an arrival time of 12:00 PM. She is aware to arrive at [facility] for EKG and BMP. She is aware she will need a local company hazmat driver and NPO for 6 hours prior to procedure and ok to takeBP pills in the morning with a sip of water. Tessa Ludwig documented in this encounterPremier Health08-02-2023 Miscellaneous Notes* Telephone Encounter - Sanjana Berger - 04/05/2023 3:33 PM EDT Dialysis Center Name:[facility] Contact (Name/Number): TARYN [phone] Was patient able to dialyze: YES Days/Times patients dialyzes:MWF Does the patient have a thrill:YES Type of Access: LOOP GRAFT Location (LUE/RUE/etc):RIGHT ARM Problem:TIGHNESS ABOVE GRAFT, HIGH VENOUS PRESSURE,DIMISNHED BRUIT/THRILL Recent Intervention (within 30 days): NO Patient location & phone number (mcfp): HOME Is the patient on asa/blood thinners:NO Patient s [facility] Vascular Surgeon: JUAN F Comments (can patient be scheduled for fistulogram or sent to ER) FISTULAGRAM documented in this encounterPremier Health06-23-2023 History of Present illness Narrative* Syeda Frost [...] pounds in a week? No Based on jewelry salesperson, the following disposition is advised: No symptoms or symptoms present, not severe. Routed to: No Action Needed JEANNETTE Education Provided this Outreach: Yes Syeda Frost RN February 24, 2023 11:34 AM documented in this encounterPremier Health06-01-2023 History of Present illness Narrative* Syeda Frost [...] pounds in a week? No Based on jewelry salesperson, the following disposition is advised: No symptoms [...] 01, 2023 11:02 AM documented in this encounterPremier Health06-01-2023 NoteORIGINAL PROCEDURE: IR ANGIOGRAM ARTERIOVENOUS SHUNT02/01/2023 3:02 [...] 7 Fr sheath Micropuncture Stiff Glidewire Inflator Comins balloons: 7 x 60 Con [facility] 8 [...] series of catheters and guidewires a 7 Spanish sheath was placed and guided to the [...] Sign Date: 02/02/2023 1:44:23 AM Ordering Provider: [facility]02-02-2023 Note ORIGINAL PROCEDURE: IR ANGIOGRAM ARTERIOVENOUS SHUNT02/01/2023 [...] 7 Fr sheath Micropuncture Stiff Glidewire Inflator Comins balloons: 7 x 60 Con Quest 8 [...] series of catheters and guidewires a 7 Spanish sheath was placed and guided to the [...] 02/02/2023 1:44:23 AM Ordering Provider[id number] Discharge instructions Patient Education 02/01/2023 15:39:23 [...] until you are awake and alert. Take lztf-rvl-hbqggyw and prescription medicines only as told by [...] 06/11/2014 Document Revised: 08/03/2018 Document Reviewed: 12/10/2016 [employer] Patient Education 2020 cartmi. 02/01/2023 15:39:21 3- Fistulogram ([facility]) 10/2019 (CUSTOM) Fistulogram Discharge Instructions This [...] call your physician or if unavailable, go tot emergency department. There will be a small [...] Care 01/13/2023 13:23:09 With:YOUSUF CROW DO Address: [facility] [place] [address]- When: Unknown Comments:Follow-up as scheduled With:Call Physician Referral Address:Unknown When: Unknown [facility] 05-31-2023 Summary of episode note Discharge Instructions Thank you for allowing [facility] to assist you with your healthcare needs. The following is importantdischarge information regarding your hospital visit. Your Care Team MALDONADO RAZA MD What to do next Follow Up Appointments Follow Up with YOUSUF CROW DO When Why: Follow-up as scheduled Where: [facility] [place] [address]- Follow Up with Call Physician Referral When [...] until you are awake and alert. Take nhkk-omo-aqljpii and prescription medicines only as told by [...] 06/11/2014 Document Revised: 08/03/2018 Document Reviewed: 12/10/2016 [employer] Patient Education 2020 cartmi. Fistulogram Discharge Instructions This information has been [...] call your physician or if unavailable, go tot emergency department. There will be a small [...] to receive it can visit one of [facility] vaccine clinics. There are many vaccine clinic locations within the [facility]. For locations and available times, please visit https://gettheshot.coronavirus.[place].gov/. It is important to note that some COVID mobile vaccine clinics are held outdoors and may be canceled in rainy or stormy conditions. To learn more about pediatric vaccinations (ages 5-11), we invite you to visit the [employer] webpage. [email or web address]/[email or web address]-Mxl [email or web address].htmlTo learn more about the COVID-19 vaccine, we invite you to visit the CDC website for a list of frequently asked questions.https://www.cdc.gov/coronavirus/2019-ncov/vaccines/faq.html [facility] Patient Portal Access Instructions: Stay connected with your healthcare team and access your personal medical information anytime with the [facility] Patient Portal. Please follow the directions below to create your [employer] Go account: 1.Access the email account you provided upon registration to the hospital/physician office.2.Look for an invitation email from [facility].3.Open the email and access the invitation link: AcceptInvitation to [employer].4.Fill in the required reyes to create your account. To access your account, visit [email or web address]. Click the blue button labeled Access Patient Portal and then log in with the username and password that you created in the steps above. You will be able to view your test results, lab results, a summary of your visits, upcoming appointments and more. There is also a convenient messaging option where you can send secure messages to your [facility]. In addition, you will have the ability to download any documents or summaries to your computer and/or send the information securely to a physician. Remember that your healthcare information is confidential, so carefully consider who you will allowto register on the [facility] for access to your information. You can also access the [facility] on the [place] [facility] shelley. Simply click on Patient Portal and then log into your account. If you would like to receive a full copy of your medical records, please contact the [facility] Medical Records Department by calling [phone], Monday through Monday between 8 a.m. and [...] Call your local pharmacy or go to [email or web address] to find one close to you.3.Make use of household items: Use cat litter or old coffee grounds to dispose medications if other options arenot available. Mix your drugs with these household products, seal them in an airtight container andthrow it into the garbage. Call [facility]: [phone] to be sure your drugs can be [...] aware that I should contact my doctor. Patient/Bladder Blower Signature: Date/Time: Relationship to Patient: Witness Name/Signature: Date/Time: [id number] Discharge summary Date of Service 02/01/2023 Discharge [...] AGGIE RODRIGUEZ MD on 02/01/2023 03:38 PM [facility] [id number] Interventional radiology Consult note INTERVENTIONAL RADIOLOGY POST PROCEDURE NOTE DATE: 02/01/2023 15:14:58 NAME: SANDY BHATTI Pre-Procedure Diagnosis: _stenosed fistula Post Procedure Diagnosis: Same. [employer] Consultant: Dr. Harshal Rodriguez Procedure: _PTA of SVC [...] Garcia MD Interventional Radiology IR dept: x [id number] Available on Cortext Digitally Signed by AGGIE RODRIGUEZ MD on 02/01/2023 03:15 PM [facility] [id number] Note ORIGINAL PROCEDURE: IR ANGIOGRAM ARTERIOVENOUS SHUNT02/01/2023 [...] 7 Fr sheath Micropuncture Stiff Glidewire Inflator Comins balloons: 7 x 60 Con [facility] 8 [...] series of catheters and guidewires a 7 Spanish sheath was placed and guided to the [...] Sign Date: 02/02/2023 1:44:23 AM Ordering Provider: [facility]05-31-2023 Note IR Procedure Record Summary Primary Physician: AGGIE RODRIGUEZ MD Finalized Date/Time: 02/01/23 14:45:38 Pt. Name: SANDY BHATTI/Sex: 1965 Female Med Rec #: [id number] Physician: Financial #: [id number] Pt. Type: S Room/Bed: 0012/B Admit/Disch: 02/01/23 10:51:06 - Institution: Allergies identified in patient's electronic medical record at time of printing on 02/01/23 Entry 1 Entry 2 Entry 3 Substance Latex codeine penicillin Reaction Type Allergy Allergy Allergy Last Modified By: JESSICA León, RN Sandy Hobson, JESSICA Delgado 01/03/18 12:22:34 L 05/31/06 01:12:06 L 05/31/06 01:02:31 Case Attendance- IR Entry 1 Entry 2 Entry 3 Case Attendee AGGIE RODRIGUEZ MD Jared Tech Maria Eugenia, Terra L Sweatband Perforator Role Performed Primary Surgeon Circulating Technologist Scrub Technologist Details Time In 02/01/23 12:55:00 02/01/23 12:55:00 02/01/23 12:55:00 Time Out 02/01/23 14:48:00 02/01/23 14:48:00 02/01/23 14:48:00 Procedure/Preference IR Arteriogram AV Shunt IR Arteriogram AV Shunt IR Arteriogram AV Shunt Card Fistulogram SN Fistulogram SN Fistulogram SN Last Modified By: Inna Jared Tech Inna Jared Tech Gauriemer, Jared Tech 02/01/23 14:45:13 02/01/23 14:45:13 02/01/23 [...] FISTULOGRAM SN Primary Procedure Yes Primary Surgeon MICHAEL, AGGIE Perez MD Anesthesia/Sedation Local, IV Sedation Type Additional [...] Dose 48 mL Medication OMNIPAQUE 300 50ML PK Y-530 [facility] 4849-3129-50 Radiology Flouroscopy Fluoroscopy Used? Yes Fluoro Dose (mGy) 40 Fluoro Time 9.9 min Radiology Local Local Used? Yes Local Type: Lidocaine 2% Local Dose 1 mL Radiology Procedure Site Site/Location right upper arm Site Condition No complications Last Modified By: InnaArktis [employer]iation Detectors 02/01/23 14:43:23 General Case Data - IR Entry 1 Case Information Room IR 18 Case Level IR Level 3 Wound Class None Specialty SN Radiology Procedure ASA Class None Diagnosis Preop Diagnosis central stenosis Postop Same As Preop Yes Postop Diagnosis central stenosis Last Modified By: CloudBytequintenArktis Radiation Detectors 02/01/23 13:18:25 Medication Administration- IR Entry 1 [...] Rodriguez, Caitlin C RN Verbal Order Read MICHAELAGGIE MD MICHAEL, AGGIE Perez MD MICHAEL, AGGIE [...] Verbal Order Read AGGIE RODRIGUEZ MD MICHAEL, LAURIAN M AGGIE MARIE MD Back from: Last Modified By: Beckie [...] C RN Verbal Order Read AGGIE RODRIGUEZ MD, LAURIAN M MD DEAN, LAURIAN M MD Back from: Last Modified By: Beckie [...] team. When Applicable Confirmation correct Team Members MICHAEL, AGGIE Perez MD, side and site marked, Present for Time Out Jared Keith, Relevant images and Moon Del Cid results are properly Sweatband Perforator, Jose Angel, labeled and Beckie Curry RN appropriately displayed, Alcohol based prep dry, Double verification of sterility indicators complete Instrument Sterility Team Members Moon Del Cid Verifying Sterility Sweatband PerforatorInna De La Rosa Alexis Tech Procedure IR Arteriogram AV Shunt Fistulogram SN Last Modified By: Jared Keith 02/01/23 13:18:17 Skin Prep- IR Entry 1 Procedure IR Arteriogram AV Shunt Fistulogram SN Skin Prep Prep Area Arm Side Right, Lower By Moon Del Cid Prep Agents Chloraprep Sweatband Perforator Hair Removal Method N/A Last Modified By: [...] Radiology - Action Plan Outcomes Met? Yes Library Technical Assistant Beckie Walter RN Completing Procedure Plan Last Modified By: Jared Keith 02/01/23 12:59:03 Case Comments Finalized By: Jared Keith Document Signatures Signed By: Jared Keith 02/01/23 14:45 Jared Keith 02/01/23 14:45 [facility] [id number] Evaluation + Plan noteExtracted from: Title:IR pre [...] at age: 50 Years. Physical Exam Vitals: Ekqdoxcyfbx03.6 (11:24) Systolic Blood Olzvgbhx626 (11:24) Diastolic Blood Uniorygc58 (11:24) Pulse97 (11:24) LfV8449 (11:24) Respiratory Rate16 (11:24) General: Alert, cooperative. [...] Plan Patient to be discharged home. _ [facility] 05-31-2023 Note Interventional Radiology Focused Preprocedure History/Physical [...] at age: 50 Years. Physical Exam Vitals: Exebjpxdjdl76.6 (11:24) Systolic Blood Gguwlfis870 (11:24) Diastolic Blood Ynwuosnn88 (11:24) Pulse97 (11:24) SfE8692 (11:24) Respiratory Rate16 (11:24) General: Alert, cooperative. [...] JOSE GARCIA PA-C on 02/01/2023 12:30 PM [facility] [id number] History of Present illness Narrative* Syeda Frost [...] pounds in a week? No Based on jewelry salesperson, the following disposition is advised: Routed to: No Action Needed JEANNETTE Education Provided this Outreach: No Syeda Frost RN January 02, 2023 1:25 PM documented in this encounterPremier Health04-17-2023 Miscellaneous Notes* Telephone Encounter - Karthikeyan Akbar [...] faxed to Dr. Rocco Griffin at [facility], please send records documented in this encounterPremier Health04-17-2023 Instructions* Patient Instructions* Lisa Heredia PA-C - 12/19/2022 3:38 PM EDT The following instructions are important for you related to your office visit today with the [facility] General Surgeons. INSTRUCTIONS FOLLOWING A POLYP [...] you should contact our office immediately @ [phone] and ask to be transferred to the General Surgery department. documented in this encounterPremier Health04-17-2023 History of Present illness Narrative* Lisa Heredia PA-C - 12/19/2022 3:25 PM EDT FOLLOW UP VISIT - ENDOSCOPY NAME: Sandy Bhatti CLINIC NO.: [id number] DATE OF SERVICE: 12/19/2022 : 1965 REFERRING [...] which included preparing to see the patient, jtbg-cj-ogtx patient care, completing clinical documentation, obtaining and/or reviewing separately obtained history, counseling and educating the patient/family/caregiver, independently interpretin g results (not separately reported), and communicating results to the patient/family/caregiver. Lisa Heredia PA-C documented in this encounterPremier Health04-10-2023 Miscellaneous Notes* Telephone Encounter - Torri Rojas [...] you. Torri Rojas RN documented in this encounterPremier Health04-05-2023 History of Present illness Narrative* Syeda Frost [...] like to speak with a social work cafeteria team leader to help give you support for any [...] you up for automated weekly questionnaires through [employer]. This is an easy way for us [...] 07, 2022 5:10 PM documented in this encounterPremier Health03-14-2023 History and physical note * Ge Fuller [...] was reversed in ' per records in [facility]. Patient's past medical history is significant for [...] kidney disease) stage V requiring chronic dialysis ([facility]) 03/01/2018 Dr. Pendleton, nephrology. Constipation Depression 09/04/2006 [...] has history of excited rhythm. Sees a medical practice manager in [place], last seen in January 2019. No concerns. [...] CHOLECYSTECTOMY 1984 Cholecystectomy COLOSTOMY/SKIN LEVEL CECOSTOMY 2006 [id number], reversed 2006 CREATION OF AVF, PERCUTANEOUS USING MAGNETIC-GUIDED ARTERIAL AND VENOUS CATHETERS AND RADIOFREQUENCY ENERGY Right 11/14/2019 RIGHT AVF stage I EXPLORATORY LAPAROTOMY CELIOTOMY W/WO BIOPSY SPX 2006 Laparotomy, exp IR VENOUS FISTULAGRAM Left 01/22/2019 Left SC balloon PAST SURGICAL HISTORY OF Left 05/16/2019 JOHANNE DRANA (proximal brachial to distal brachial artery [...] lung cancer Coronary Artery Disease Brother dec. [place] 57 y.o. No Known Problems Maternal Grandmother No Known Problems Maternal Grandfather No Known Problems Paternal Grandmother No Known Problems Paternal Grandfather REVIEW OF SYMPTOMS: The review of systems data was entered by the nurse and reviewed by ny Nursing Notes: Estrella Pinedo LPN 09/20/2022 1:15 [...] (97.9 F), height 160 cm (5' 3), rqseio79.9 kg (149 lb 12.8 oz), SpO2 95 [...] patient was offered a surgery/procedure at a [facility] facility. I have counseled the patient regarding [...] 2022 TIME: 8:53 AM documented in this encounterPremier Health03-13-2023 Miscellaneous Notes* Telephone Encounter - Edie Samayoa LPN - 11/14/2022 5:11 PM EDT Spoke to Sandy, given below instructions. Patient check with trench shovel operator. Edie Samayoa LPN * Telephone Encounter - Cheryl Hays MD - 11/12/2022 12:05 PM EST Noted, I do not think the golytely will cause any water retention or dehydration. She can confirm it with trench shovel operator but I think she could take it [...] trying to get a hold of her Rn Licensed Practical. Lisa Mcdonough RN * Telephone Encounter - [...] a colonoscopy on Monday. documented in this encounterPremier Health03-13-2023 History of Present illness Narrative* Syeda Frost RN - 11/14/2022 9:49 AM EDT INSIGHT [...] like to speak with a social work cafeteria team leader to help give you support for any [...] you up for automated weekly questionnaires through [employer]. This is an easy way for us [...] 14, 2022 9:49 AM documented in this encounterPremier Health02-21-2023 History of Present illness Narrative* Tea Tierney MA - 10/25/2022 10:37 AM EST POPULATION HEALTH NAVIGATION OUTREACH Action/FYI LVM no David messsge ANNUAL MEDICARE WELLNESS EXAM [...] 25, 2022 10:37 AM documented in this encounterPremier Health02-09-2023 History of Present illness Narrative* Syeda Frost RN - 10/13/2022 1:01 PM EST INSIGHT CDM TELEPHONIC OUTREACH Provider Action/FYI: Updates routed to Dr. Luz Marina DESOUZAM: CKD / ESRD Pt noted she noted [...] like to speak with a social work cafeteria team leader to help give you support for any [...] you up for automated weekly questionnaires through [employer]. This is an easy way for us [...] 13, 2022 1:01 PM documented in this encounterPremier Health01-17-2023 History of Present illness Narrative* Lisa Heredia [...] ago. Previous colostomy which was reversed in per records in [facility]. Patient's past medical history is significant for [...] colic 06/12/2007 Steal syndrome dialysis vascular access ([facility]) 05/17/2019 Recent increased left arm swelling, which [...] has history of excited rhythm. Sees a medical practice manager in [place], last seen in January 2019. No concerns. [...] CHOLECYSTECTOMY 1985 Cholecystectomy COLOSTOMY/SKIN LEVEL CECOSTOMY [id number], reversed 2007 CREATION OF AVF, PERCUTANEOUS USING [...] lung cancer Coronary Artery Disease Brother dec. [place] 57 y.o. No Known Problems Maternal Grandmother No Known Problems Maternal Grandfather No Known Problems Paternal Grandmother No Known Problems Paternal Grandfather REVIEW OF SYMPTOMS: The review of systems data was entered by the nurse and reviewed by ny Nursing Notes: Estrella Pinedo LPN 09/20/2022 1:15 [...] (97.9 F), height 160 cm (5' 3), djfipb84.9 kg (149 lb 12.8 oz), SpO2 95 [...] patient was offered a surgery/procedure at a [facility] facility. I have counseled the patient regarding [...] mail. Lisa Heredia PA-C documented in this encounterPremier Health01-17-2023 Nurse Note* Estrella Pinedo LPN - 09/20/2022 [...] 2006 Estrella Pinedo LPN documented in this encounterPremier Health01-17-2023 Instructions* Patient Instructions* Ifeoma Schneider APRN.CNP - [...] schedule this for you. documented in this encounterPremier Health01-17-2023 History of Present illness Narrative* Ifeoma Schneider APRN.CNP - 09/20/2022 10:47 AM EST CC: Patient presents with: 4 month follow up: Currently on cipro for kidney infection - was seen in [facility] ER yesterday HPI Sandy Bhatti is [...] kidney disease) stage V requiring chronic dialysis ([facility]) 03/01/2018 Dr. Pendleton, nephrology. Constipation Depression 09/04/2006 GERD (gastroesophageal reflux disease) Hemorrhoids HTN (hypertension) 09/04/2001 Hyperlipidemia 09/04/1999 Hypertrophic cardiomyopathy (HCC) Proteinuria 06/14/2013 Renal colic 06/12/2007 Steal syndrome dialysis vascular access ([facility]) 05/17/2019 Recent increased left arm swelling, which [...] has history of excited rhythm. Sees a medical practice manager in [place], last seen in January 2019. No concerns. [...] CHOLECYSTECTOMY 1985 Cholecystectomy COLOSTOMY/SKIN LEVEL CECOSTOMY [phone], reversed 2006 CREATION OF AVF, PERCUTANEOUS USING [...] lung cancer Coronary Artery Disease Brother dec. [place] 57 y.o. No Known Problems Maternal Grandmother [...] 6 MO - 64 YRS IM - [employer] COVID-19 PRIMARY SERIES VACCINE, AGE 12+ YR [...] plan. Ifeoma Schneider APRN.CNP documented in this encounterPremier Health01-16-[address] Torrez [facility] September 19, 2022 1:49pm Note Date/Time September 19, 2022 1 1:00am [facility] Medical Records Department [address] [place] [address] Emergency Department Summary 09/19/22 MR#: [id number] Acct: [id number] Name: SANDY BHATTI Rep #:[id number] : 1965 57 From: Warren Torrez DO [...] a fever. She denies constipation or diarrhea. [facility] Medical History Acid reflux Anxiety Congestive heart [...] % (Auto) 62.9 Lymph % (Auto) 24.1 [place] % (Auto) 8.5 Eos % (Auto) 2.1 [...] Sl. Cloudy Urine pH 8.0 Ur Specific [place] 1.010 Urine Protein 500 H Urine Glucose [...] your Primary Care Provider. Call [facility] ([phone]) or report to the closest Emergency Room. Call 911 if necessary. 09/19/22 1349 <Electronically signed by Warren Torrez DO> Cosigner Signature (if applicable): CC: Dr. Maldonado Raza MD ~ Signed [facility] Work Phone: 1(293) 935-234301-10-2023 Miscellaneous Notes* Telephone Encounter - Glenna Griffith RN - 09/13/2022 11:01 AM EST Last Office Visit: 05/01/2022 Future Office Visit: 09/15/222 Requested Prescriptions Pending Prescriptions Disp Refills insulin needles, DISPOSABLE, (PEN NEEDLE) 31 gauge x 5/16 100 Each 3 Sig: Use one needle per dose. one per day. Date of Last Labs: 05/02/2022 documented in this encounterPremier Health01-09-2023 Miscellaneous Notes* Telephone Encounter - Cony Larson - 09/12/2022 10:24 AM EST Spoke with pt and confirmed 9:00 am arrival time for vascular procedure on 09/13. Reviewed all instructions. documented in this encounterPremier Health01-05-2023 History of Present illness Narrative* Syeda Frost [...] like to speak with a social work cafeteria team leader to help give you support for any [...] you up for automated weekly questionnaires through [employer]. This is an easy way for us [...] status or needs. Instructed to contact PCP/ SCREW MACHINE OPERATOR SWISS TYPE for new or worsening symptoms or condition changes Contact made with patient: No - Left message Hello my name is Syeda Frost RN your Furnace Installer from the [facility] I am callingtoday for your bi-weekly check in. I am sorry I missed your call. I will reach out to you again tomorrow. (if the third call I will reach out to you again next week) Enter next patient outreach date for the following business day using the Track Pt Outreach. End outreach. Syeda Frost RN September 06, 2022 12:28 PM documented in this encounterPremier Health01-05-2023 Miscellaneous Notes* Telephone Encounter - Glenna Griffith [...] of Last Labs 05/02/2022 documented in this encounterPremier Health01-04-2023 Miscellaneous Notes* Telephone Encounter - Sanjana Ann - 09/07/2022 2:35 PM EST Spoke with patient and spouse and rescheduled fistulagram to 09/13/2022 with * Telephone Encounter - Cony Larson - 09/07/2022 1:52 PM EST Pt scheduled for fistulagram 09/08/22. Left voicemail for pt with 10:00 arrival time and all instructions. Also spoke with dialysis unit nurse- she will call the patient again as well. * Telephone Encounter - Cony Larson - 09/07/2022 12:45 PM EST Dialysis unit in [place] called to request fistulagram due to hand swelling. Will fax note and orders for next available appointment. documented in this encounterPremier Health12-20-2022 Miscellaneous Notes* Telephone Encounter - Edie Samayoa [...] time. Michelle Julio LPN documented in this encounterPremier Health12-01-2022 History of Present illness Narrative* Syeda Frost, RN - 08/04/2022 11:30 AM EST INSIGHT CDM TELEPHONIC OUTREACH Provider Action/FYI: Spk with Pt she reports was seen by ENT and Left ear tube inserted, denies fever ,chills or pain, or drainage. Ear infection resolved. ESRD on Dialysis Mon/Mon/Mon, Right forearm with patent vascular access, Pt [facility] [...] like to speak with a social work cafeteria team leader to help give you support for any [...] you up for automated weekly questionnaires through [employer]. This is an easy way for us [...] 04, 2022 11:30 AM documented in this encounterPremier Health11-07-2022 Miscellaneous Notes* Telephone Encounter - Brittani Gregg [...] vaginosis. Helen Cuellar APRN.CNM documented in this encounterPremier Health11-01-2022 Miscellaneous Notes* Letter - Mammography Coordinator - 07/05/2022 11:31 AM EDT July 05, 2022 PID: [id number] Sandy Soliman [address] [place] [address] Dear Magy, We are pleased to inform [...] report will be kept on file at [facility] as part of your permanent medical record and are available for your continuing care. Thank you for allowing us to help in meeting your health care needs. Sincerely, Dr. Adams Interpreting Radiologist [facility] (Normal over 40) documented in this encounterPremier Health11-01-2022 Instructions* Patient Instructions* Helen Cuellar APRN.CNM - [...] penis or fingers just before sex. Coconut, [place], Avocado or Peanut oil- natural oils are [...] are available in pharmacies and online. Restore- RouxbecleanInstaJobveCollabFinder Replens Natan Feminease Moist Again K-Y Liquid beads Products to assist with maintaining vaginal ph IsoFresh www.[employer] BiopHresh Rephresh documented in this encounterPremier Health11-01-2022 History of Present illness Narrative* Helen Cuellar [...] L0 SAB5 IAB0 Ectopic0 Multiple0 Live Births0 Order Puller History LMP: Hysterectomy Age at Menarche: Age at First : Age at Menopause: Order Puller History Comments: Sexual Activity: Yes; Male; hysterectomy Contraception: Surgical PAST MEDICAL HISTORY Diagnosis Date Acute kidney failure (HCC) 01/14/2018 Acute respiratory failure (HCC) Anxiety Arterial steal syndrome ([facility]) 12/2018 Left AVF Calculus of ureter 06/12/2007 CKD (chronic kidney disease) stage V requiring chronic dialysis ([facility]) 03/01/2018 Dr. Pendleton, nephrology. Constipation Depression 09/04/2006 GERD (gastroesophageal reflux disease) Hemorrhoids HTN (hypertension) 09/04/2001 Hyperlipidemia 09/04/1999 Hypertrophic cardiomyopathy (HCC) Proteinuria 06/14/2013 Renal colic 06/12/2007 Steal syndrome dialysis vascular access ([facility]) 05/17/2019 Recent increased left arm swelling, which [...] has history of excited rhythm. Sees a medical practice manager in [place], last seen in January 2019. No concerns. [...] 2006 CHOLECYSTECTOMY 1984 Cholecystectomy COLOSTOMY/SKIN LEVEL CECOSTOMY 2007 [id number], reversed 2006 CREATION OF AVF, PERCUTANEOUS USING [...] lung cancer Coronary Artery Disease Brother dec. [place] 57 y.o. No Known Problems Maternal Grandmother [...] external genitalia normal, normal Bartholin's glands, urethra, Tuleta's glands, no vulvar lesions, no cervical lesions, [...] needed Helen Cuellar APRN.CNM documented in this encounterPremier Health10-31-2022 History of Present illness Narrative* Santosh Landa RN - 07/04/2022 4:36 PM EDT GABRIELLE CDM TELEPHONIC OUTREACH Provider Action/FYI: Routed updates to Dr. Raza Chart reviewed: [facility] ER 06/21/22 Dx: Acute bilateral mastoiditis 07/04/22 Spk with spouse, he noted Sandy was seen at [facility] ED for Ear drainage, Sinus/ Ear [...] like to speak with a social work cafeteria team leader to help give you support for any [...] you up for automated weekly questionnaires through [employer]. This is an easy way for us [...] 04, 2022 4:36 PM documented in this encounterPremier Health10-17-2022 Miscellaneous Notes* Telephone Encounter - Leana Griffin RN - 06/20/2022 10:23 AM EDT Called Maribel and advised her that the AVF can be accessed for dialysis Information faxed to [phone] Leana Griffin RN * Telephone Encounter - Christy Ag - 06/20/2022 10:14 AM EDT Maribel called with a message regarding this mutual patient. Would like to know if we're able to cannulate the AV graft. Please advise and call back at [phone] Christy Ag documented in this encounterPremier Health10-13-2022 History of Present illness Narrative* Santosh Landa [...] fluids, and resting. Instructed to contact PCP/ SCREW MACHINE OPERATOR SWISS TYPE for new or worsening symptoms or condition [...] like to speak with a social work cafeteria team leader to help give you support for any [...] you up for automated weekly questionnaires through [employer]. This is an easy way for us [...] 16, 2022 3:05 PM documented in this encounterPremier Health10-05-2022 Miscellaneous Notes* Telephone Encounter - Shyann Walsh - 06/08/2022 1:48 PM EDT Called patient with arrival time of 8:30am for procedure 06/09. Reviewed all laboratory worker instructions, patient verbalized understanding. Patient takes asa daily. I could not find asa directions. Per Dr Rogel ok to continue documented in this encounterPremier Health10-05-2022 Miscellaneous Notes* Telephone Encounter - Edie Samayoa LPN - 06/08/2022 1:18 PM EDT Patient notified of below results. Edie Samayoa LPN * Telephone Encounter - Edie Samayoa LPN - 06/08/2022 1:17 PM EDT ----- Message from Ifeoma Schneider APRN.CNP sent at 06/08/2022 12:46 PM EDT ----- Cholesterol levels at goal. HgbA1c 6.2, diabetes well controlled Ifeoma Schneider APRN.CNP documented in this encounterPremier Health10-04-2022 Miscellaneous Notes* Telephone Encounter - Fariba Jefferson RN - 06/07/2022 9:47 AM EDT calls to request refills on amlodipine and pen needles. Patient should have a refill for a 90 day supply at the pharmacy for both. Placed a call to Bailey at [facility] in [place]. Both prescriptions forrest filled. Fariba Jefferson RN documented in this encounterPremier Health09-28-2022 Miscellaneous Notes* Telephone Encounter - Charito Guillen RN - 06/01/2022 4:27 PM EDT Vascular Surgery Access Center Dialysis Center/Dialysis Center Contact [facility], Outside Rn Licensed Practical Contact (name, number) Were you able to be Dialyzed? Yes Does the patient have a thrill? N/a Type of Access/Location/Problem: RUE, art/venous pressures high (suspect central vein stenosis) some access swelling Recent Intervention (30 days): No [facility] Vascular Surgeon/Office/Location Steel Estimator/Phone Number: ELVIA, Patient Location/Patient phone number home/[facility] NPO since n/a (Please instruct caller to make patient NPO now) Is the patient on any anticoagulation? no If yes, date and time of last dose (Include anticoagulation instructions under comments) Comments, pt aware, agrees, will get call day p/t by ELVIA Guillen RN documented in this encounterPremier Health08-29-2022 Miscellaneous Notes* Telephone Encounter - Leonila Stallworth LPN - 05/02/2022 2:56 PM EDT Bailey with [facility] called to let yo know they received prescription request for Novolog vial and pt's insurance prefers with flex pen. Please advise Pharmacy. Leonila Alejandra Basim IMPORT CUSTOMER SERVICE MANAGER documented in this encounterPremier Health08-29-2022 Instructions* Patient Instructions* Maldonado Raza MD - 05/02/2022 2:44 PM EDT NON FASTING BLOOD WORK TODAY. documented in this encounterPremier Health08-29-2022 History of Present illness Narrative* Maldonado Raza MD - 05/02/2022 2:35 PM EDT This note was created using [employer]. Subjective Sandy Bhatti is a 57 year old female. She had no concerns. Diabetes was labile. She was going to in [place] for evaluation for renal transplant. Review of [...] CHOLECYSTECTOMY 1985 Cholecystectomy COLOSTOMY/SKIN LEVEL CECOSTOMY 2007 [id number], reversed 2006 CREATION OF AVF, PERCUTANEOUS USING [...] Z99.2 Being evaluated for renal transplant at [facility]. - CBC Maldonado Raza MD documented in this encounterPremier Health08-19-2022 History of Present illness Narrative* Santosh Landa [...] like to speak with a social work cafeteria team leader to help give you support for any [...] you up for automated weekly questionnaires through [employer]. This is an easy way for us [...] 22, 2022 9:56 AM documented in this encounterPremier Health08-18-2022 History of Present illness Narrative* Santosh Landa RN - 04/21/2022 10:41 AM EDT [facility] TELEPHONIC OUTREACH Provider Action/FYI: Call to Pt to verify ESRD status or other symptoms or needs, left a message. Contact made with patient: No - Left message Erica my name is Syeda Frost RN your Furnace Installer from the [facility] I am callingtoday for your bi-weekly check in. I am sorry I missed your call. I will reach out to you again tomorrow. (if the third call I will reach out to you again next week) Enter next patient outreach date for the following business day using the Track Pt Outreach. End outreach. Syeda Frost RN April 21, 2022 10:41 AM * Santosh Landa RN - 04/19/2022 2:09 PM EDT [facility] TELEPHONIC OUTREACH Provider Action/FYI: Call to Pt to verify ESRD status or other symptoms or needs, left a message. Contact made with patient: No - Left message Erica my name is Syeda Frost RN your Furnace Installer from the [facility] I am callingtoday for your bi-weekly check in. I am sorry I missed your call. I will reach out to you again tomorrow. (if the third call I will reach out to you again next week) Enter next patient outreach date for the following using the Track Pt Outreach. End outreach. Syeda Frost RN April 19, 2022 2:09 PM documented in this encounterPremier Health08-01-2022 History of Present illness Narrative* Santosh Landa RN - 04/04/2022 3:17 PM EDT [facility] TELEPHONIC OUTREACH Provider [...] like to speak with a social work cafeteria team leader to help give you support for any [...] you up for automated weekly questionnaires through [employer]. This is an easy way for us [...] 04, 2022 3:17 PM documented in this encounterPremier Health07-27-2022 History of Present illness Narrative* Ms. Sandy Bhatti is a 57-year-old female with a history of ESRD secondary to type 2 diabetes-currently on dialysis Monday through right upper extremity AV fistula. Her dialysis start date is 02/14/2018 gets dialysis at [facility] and her trench shovel operator is . 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 * -Used to do marijuana 6 to 7 years ago currently quit. Quit alcohol and used to smoke years ago. [facility] [employer] Work Phone: 1(462) 530-552007-15-2022 History of Present illness Narrative* Santosh Landa RN - 03/18/2022 1:44 PM EDT [facility] TELEPHONIC OUTREACH Provider Action/FYI: Call to to Pt verify ESRD status or other symptoms or needs, left a message. Contact made with patient: No - Left message Hello my name is Syeda Frost RN your Furnace Installer from the [facility] I am callingtoday for your bi-weekly check in. I am sorry I missed your call. I will reach out to you again tomorrow. (if the third call I will reach out to you again next week) Enter next patient outreach date for the following business day using the Track Pt Outreach. End outreach. Syeda Frost RN March 18, 2022 1:44 PM documented in this encounterPremier Health07-07-2022 Miscellaneous Notes* Telephone Encounter - Linda Valencia [...] Thank you. Yessica Schuster documented in this encounterPremier Health06-16-2022 History of Present illness Narrative* Santosh Landa RN - 02/17/2022 11:04 AM EDT [facility] TELEPHONIC OUTREACH Provider Action/FYI: Call to to Pt verify ESRD status or other symptoms or needs, mailbox is full unable to leave a message. Contact made with patient: No - unable to leave a message Hello my name is Syeda Frost RN your Furnace Installer from the [facility] I am callingtoday for your bi-weekly check in. I am sorry I missed your call. I will reach out to you again tomorrow. (if the third call I will reach out to you again next week) Enter next patient outreach date for the following business day using the Track Pt Outreach. End outreach. Syeda Frost RN February 17, 2022 11:04 AM documented in this encounterPremier Health06-15-2022 History of Present illness Narrative* Santosh Landa RN - 02/16/2022 1:31 PM EDT [facility] TELEPHONIC OUTREACH Provider Action/FYI: Call to Pt [...] RN - 02/14/2022 12:14 PM EDT [facility] TELEPHONIC OUTREACH Provider Action/FYI: Call to Pt [...] 14, 2022 12:14 PM documented in this encounterPremier Health05-27-2022 History of Present illness Narrative* Santosh Landa RN - 01/28/2022 9:52 AM EDT [facility] TELEPHONIC OUTREACH Provider Action/FYI: Spk with Pt [...] like to speak with a social work cafeteria team leader to help give you support for any [...] you up for automated weekly questionnaires through [employer]. This is an easy way for us [...] RN - 01/27/2022 12:09 PM EDT [facility] TELEPHONIC OUTREACH Provider Action/FYI: Call to Pt [...] 27, 2022 12:09 PM documented in this encounterPremier Health05-12-2022 Miscellaneous Notes* Telephone Encounter - Lisa Mcdonough [...] 11/12/2019 39 Please advise. Thank you. Lisa Babulski, RN documented in this encounterPremier Health05-11-2022 History of Present illness Narrative* Santosh Landa [...] like to speak with a social work cafeteria team leader to help give you support for any [...] you up for automated weekly questionnaires through [employer]. This is an easy way for us [...] 12, 2022 11:01 AM documented in this encounterPremier Health05-09-2022 Miscellaneous Notes* Telephone Encounter - Harvey Ford [...] mind. Harvey Ford RN documented in this encounterPremier Health05-06-2022 Miscellaneous Notes* Telephone Encounter - Harvey Ford [...] number and I left a VM. Harvey Ford RN documented in this encounterPremier Health04-26-2022 Miscellaneous Notes* Telephone Encounter - Harvey Ford RN - 12/28/2021 2:42 PM EDTSummary: attempted intake Called patient regarding intake for transplant. Unable to leave message, voicemail never came on. Also, called on home phone without success, fast busy. Harvey Ford RN documented in this encounterPremier Health04-26-2022 History of Present illness Narrative* Santosh Landa [...] like to speak with a social work cafeteria team leader to help give you support for any [...] you up for automated weekly questionnaires through [employer]. This is an easy way for us [...] 28, 2021 10:44 AM documented in this encounterPremier Health04-25-2022 History of Present illness Narrative* Santosh Landa [...] 27, 2021 9:45 AM documented in this encounterJoseph [place] [address]-22-2022 Miscellaneous Notes* Telephone Encounter - Leonila Dela [...] advise. Carlene Ospina LPN documented in this encounterPremier Health04-12-2022 Miscellaneous Notes* Telephone Encounter - Krys Epperson LPN - 12/14/2021 8:48 AM EDT Phoned patient and made aware lab is ordered at [facility]. Verbalizes understanding. Krys Epperson LPN * Telephone [...] According to records lab is ordered for [facility]. Krys Epperson LPN * Telephone Encounter - Bonita Steele RN - 12/13/2021 1:38 PM EDT Spoke to pt. States hematuria is cleared up. Pt. [facility] Wondering where order was sent? Please advise [...] No acute wall thickening or inflammatory change. Yoker: LINO Transcribe Date/Time: Dec 06 2021 3:21P Dictated by : IMER NOLAND MD This examination was interpreted and the report reviewed and electronically signed by: IMER NOLAND MD on Dec 06 2021 8:00PM EST Results-Findings * * *Final Report* * * DATE OF EXAM: Dec 06 2021 2:51PM [facility] 0529 - CT FLANK WO IVCON / [...] relevant examinations available for comparison within the [facility]. RESULT: Limitations: Unenhanced imaging is [...] Lower thorax: The lung bases are clear. 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 documented in this encounterPremier Health04-08-2022 History of Present illness Narrative* Santosh Landa [...] PCP within 7 days - Routed to [facility] [[id number]] Medications Do you have any questions about [...] like to speak with a social work cafeteria team leader to help give you support for any [...] you up for automated weekly questionnaires through [employer]. This is an easy way for us [...] 10, 2021 1:22 PM documented in this encounterPremier Health04-07-2022 History of Past illness Narrative* Problem Noted [...] of this encounter (statuses as of 06/29/2023) [facility]04-07-2022 History of Past illness Narrative* Problem Noted Date Diagnosed Date Resolved Date Ventral hernia with obstruct ion, without gangrene 12/09/2021 06/29/2023 ESRD (end stage renal disease) 04/21/2021 06/29/2023 Overview: History: T//Mon Assessment/Plan: IHD today BMP [...] of this encounter (statuses as of 07/03/2023) [place] [address]-07-2022 History of Past illness Narrative* Problem Noted [...] of this encounter (statuses as of 07/09/2023) [facility]04-07-2022 History of Past illness Narrative* Problem Noted [...] of this encounter (statuses as of 07/17/2023) [facility]-07-2022 History of Past illness Narrative* Problem Noted Date Diagnosed Date Resolved Date Ventral hernia with obstruct ion, without gangrene 12/09/2021 06/29/2023 ESRD (end stage renal disease) 04/21/2021 06/29/2023 Overview: History: T//Sat Assessment/Plan: IHD today BMP [...] of this encounter (statuses as of 07/17/2023) [facility]04-07-2022 History of Past illness Narrative* Problem Noted [...] of this encounter (statuses as of 07/31/2023) [facility]04-04-2022 History of Present illness Narrative* RT Tiffanie(R) [...] 06, 2021 3:27 PM documented in this encounterPremier Health03-29-2022 History of Present illness Narrative* Von Chaney [...] kidney failure (HCC) 01/14/2018 Acute respiratory failure ([facility]) Anxiety Arterial steal syndrome ([facility]) 12/2018 Left AVF Calculus of ureter 06/12/2007 CKD (chronic kidney disease) stage V requiring chronic dialysis ([facility]) 03/01/2018 Dr. Pendleton, nephrology. Constipation Depression 09/04/2006 GERD (gastroesophageal reflux disease) Hemorrhoids HTN (hypertension) 09/04/2001 Hyperlipidemia 09/04/1999 Hypertrophic cardiomyopathy ([facility]) Proteinuria 06/14/2013 Renal colic 06/12/2007 Steal syndrome dialysis vascular access ([facility]) 05/17/2019 Recent increased left arm swelling, which [...] stated as uncontrolled 09/04/1985 VT (ventricular tachycardia) ([facility]) 05/17/2019 History: Per patient, has history of excited rhythm. Sees a medical practice manager in [place], last seen in January 2019. No concerns. [...] CHOLECYSTECTOMY 1984 Cholecystectomy COLOSTOMY/SKIN LEVEL CECOSTOMY 2006 [id number], reversed 2006 CREATION OF AVF, PERCUTANEOUS USING [...] lung cancer Coronary Artery Disease Brother dec. [place] 57 y.o. No Known Problems Maternal Grandmother [...] Plan: Appointment with Von. documented in this encounterPremier Health08-18-2021 History of Past illness Narrative* Problem Noted Date Resolved Date ESRD (end stage renal disease) 04/21/2021 0 02/23/2023 Overview: History: T/Th/Sat Assessment/Plan: IHD today [...] of this encounter (statuses as of 02/24/2023) [facility]18[facility] History of Past illness Narrative* Problem Noted [...] of this encounter (statuses as of 04/06/2023) [facility]-18-20[facility] History of Past illness Narrative* Problem Noted [...] of this encounter (statuses as of 04/06/2023) [facility]18-20[facility] History of Past illness Narrative* Problem Noted [...] of this encounter (statuses as of 04/07/2023) [facility]18-2021 History of Past illness Narrative* Problem Noted [...] of this encounter (statuses as of 04/07/2023) [facility] History of Past illness Narrative* Problem Noted [...] of this encounter (statuses as of 04/07/2023) [facility] History of Past illness Narrative* Problem Noted [...] of this encounter (statuses as of 04/12/2023) [facility] History of Past illness Narrative* Problem Noted [...] of this encounter (statuses as of 04/15/2023) [facility] History of Past illness Narrative* Problem Noted [...] of this encounter (statuses as of 05/29/2023) [facility] History of Past illness Narrative* Problem Noted [...] of this encounter (statuses as of 06/07/2023) [facility] History of Past illness Narrative* Problem Noted [...] of this encounter (statuses as of 06/07/2023) [facility] History of Past illness Narrative* Problem Noted [...] of this encounter (statuses as of 06/08/2023) [facility] History of Past illness Narrative* Problem Noted [...] of this encounter (statuses as of 06/13/2023) [facility] History of Past illness Narrative* Problem Noted [...] of this encounter (statuses as of 06/13/2023) [facility] History of Past illness Narrative* Problem Noted [...] of this encounter (statuses as of 06/19/2023) [facility] History of Past illness Narrative* Problem Noted [...] of this encounter (statuses as of 06/19/2023) [facility] History of Past illness Narrative* Problem Noted [...] of this encounter (statuses as of 06/20/2023) [facility] History of Past illness Narrative* Problem Noted [...] of this encounter (statuses as of 06/22/2023) [facility] of Past illness Narrative* Problem Noted [...] of this encounter (statuses as of 06/27/2023) [facility] History of Past illness Narrative* Problem Noted [...] of this encounter (statuses as of 06/28/2023) [facility] History of Past illness Narrative* Problem Noted [...] of this encounter (statuses as of 12/07/2021) [facility] of [facility] illness Narrative* Problem Noted [...] of this encounter (statuses as of 12/10/2021) [facility] of Past illness Narrative* Problem Noted Date Resolved Date CKD (chronic kidney disease) stage V requiring chronic dialysis 03/01/2018 08/29/2019 Overview: Dr. Pendleton, nephrology. CKD (chronic kidney disease) stage 4, GFR 15-29 ml/min 04/05/2017 03/02/2018 Overview: Dr. Nunez nephrology. CKD (chronic kidney disease) stage 3, GFR 30-59 ml/min 07/17/2013 05/02/2017 Calculus of ureter 06/12/2007 03/22/2012 Urinary tract infection, site not specified 0 05/200703/22/2012 Renal colic 06/12/2007 03/22/2012 documented as of this encounter (statuses as of 12/14/2021) [facility] of Past illness Narrative* Problem Noted [...] of this encounter (statuses as of 12/24/2021) [facility] of Past illness Narrative* Problem Noted Date Resolved Date CKD (chronic kidney disease) stage V requiring chronic dialysis 03/01/2018 08/29/2019 Overview: Dr. Pendleton nephrology. CKD (chronic kidney disease) stage 4, GFR 15-29 ml/min 04/05/2017 03/02/2018 Overview: Dr. Nunez nephrology. CKD (chronic kidney disease) stage 3, GFR 30-59 ml/min 07/17/2013 05/02/2017 Calculus of ureter 06/12/2007 03/22/2012 Urinary tract infection, site not specified 0 05/200703/22/2012 Renal colic 06/12/2007 03/22/2012 documented as of this encounter (statuses as of 12/28/2021) [facility] Narrative* Problem Noted [...] of this encounter (statuses as of 12/28/2021) [facility] Narrative* Problem Noted [...] of this encounter (statuses as of 01/07/2022) [facility] of [facility] Narrative* Problem Noted Date Resolved Date CKD (chronic kidney disease) stage V requiring chronic dialysis 03/01/2018 08/29/2019 Overview: Dr. Pendleton, nephrology. CKD (chronic kidney disease) stage 4, GFR 15-29 ml/min 04/05/2017 03/02/2018 Overview: Dr. Nunez nephrology. CKD (chronic kidney disease) stage 3, GFR 30-59 ml/min 07/17/2013 05/02/2017 Calculus of ureter 06/12/2007 03/22/2012 Urinary tract infection, site not specified 0 05/200703/22/2012 Renal colic 06/12/2007 03/22/2012 documented as of this encounter (statuses as of 01/10/2022) [facility] Narrative* Problem Noted [...] of this encounter (statuses as of 01/12/2022) [facility] Narrative* Problem Noted [...] of this encounter (statuses as of 01/14/2022) [facility] Narrative* Problem Noted [...] of this encounter (statuses as of 01/28/2022) [facility] Narrative* Problem Noted [...] of this encounter (statuses as of 02/14/2022) [facility] Narrative* Problem Noted Date Resolved Date CKD (chronic kidney disease) stage V requiring chronic dialysis 03/01/2018 08/29/2019 Overview: Dr. Pendleton, nephrology. CKD (chronic kidney disease) stage 4, GFR 15-29 ml/min 04/05/2017 03/02/2018 Overview: Dr. Nunez nephrology. CKD (chronic kidney disease) stage 3, GFR 30-59 ml/min 07/17/2013 05/02/2017 Calculus of ureter 06/12/2007 03/22/2012 Urinary tract infection, site not specified 0 05/200703/22/2012 Renal colic 06/12/2007 03/22/2012 documented as of this encounter (statuses as of 02/16/2022) [facility] Narrative* Problem Noted [...] of this encounter (statuses as of 02/17/2022) [facility] Narrative* Problem Noted Date Resolved Date CKD (chronic kidney disease) stage V requiring chronic dialysis 03/01/2018 08/29/2019 Overview: Dr. Pendleton nephrology. CKD (chronic kidney disease) stage 4, GFR 15-29 ml/min 04/05/2017 03/02/2018 Overview: Dr. Nunez nephrology. CKD (chronic kidney disease) stage 3, GFR 30-59 ml/min 07/17/2013 05/02/2017 Calculus of ureter 06/12/2007 03/22/2012 Urinary tract infection, site not specified 0 05/200703/22/2012 Renal colic 06/12/2007 03/22/2012 documented as of this encounter (statuses as of 03/10/2022) [facility] Narrative* Problem Noted [...] of this encounter (statuses as of 03/18/2022) [facility] Narrative* Problem Noted [...] of this encounter (statuses as of 04/04/2022) [facility] Narrative* Problem Noted Date Resolved Date CKD (chronic kidney disease) stage V requiring chronic dialysis 03/01/2018 08/29/2019 Overview: Dr. Pendleton, nephrology. CKD (chronic kidney disease) stage 4, GFR 15-29 ml/min 04/05/2017 03/02/2018 Overview: Dr. Nunez nephrology. CKD (chronic kidney disease) stage 3, GFR 30-59 ml/min 07/17/2013 05/02/2017 Calculus of ureter 06/12/2007 03/22/2012 Urinary tract infection, site not specified 0 05/200703/22/2012 Renal colic 06/12/2007 03/22/2012 documented as of this encounter (statuses as of 04/21/2022) [facility] Narrative* Problem Noted [...] of this encounter (statuses as of 04/22/2022) [facility] Narrative* Problem Noted Date Resolved Date CKD (chronic kidney disease) stage V requiring chronic dialysis 03/01/2018 08/29/2019 Overview: Dr. Pendleton nephrology. CKD (chronic kidney disease) stage 4, GFR 15-29 ml/min 04/05/2017 03/02/2018 Overview: Dr. Nunez nephrology. CKD (chronic kidney disease) stage 3, GFR 30-59 ml/min 07/17/2013 05/02/2017 Calculus of ureter 06/12/2007 03/22/2012 Urinary tract infection, site not specified 0 05/200703/22/2012 Renal colic 06/12/2007 03/22/2012 documented as of this encounter (statuses as of 05/02/2022) [facility] Narrative* Problem Noted [...] of this encounter (statuses as of 05/04/2022) [facility] Narrative* Problem Noted [...] of this encounter (statuses as of 06/01/2022) [facility] Narrative* Problem Noted [...] of this encounter (statuses as of 06/01/2022) [facility] Narrative* Problem Noted [...] of this encounter (statuses as of 06/07/2022) [facility] Narrative* Problem Noted [...] of this encounter (statuses as of 06/08/2022) [facility] Narrative* Problem Noted [...] of this encounter (statuses as of 06/16/2022) [facility] Narrative* Problem Noted [...] of this encounter (statuses as of 06/22/2022) [facility] Narrative* Problem Noted [...] of this encounter (statuses as of 07/04/2022) [facility] Narrative* Problem Noted [...] of this encounter (statuses as of 07/05/2022) [facility] Narrative* Problem Noted [...] of this encounter (statuses as of 07/07/2022) [facility] Narrative* Problem Noted [...] of this encounter (statuses as of 07/11/2022) [facility] Narrative* Problem Noted [...] of this encounter (statuses as of 08/04/2022) [facility] Narrative* Problem Noted Date Resolved Date CKD (chronic kidney disease) stage V requiring chronic dialysis 03/01/2018 08/29/2019 Overview: Dr. Pendleton, nephrology. CKD (chronic kidney disease) stage 4, GFR 15-29 ml/min 04/05/2017 03/02/2018 Overview: Dr. Nunez nephrology. CKD (chronic kidney disease) stage 3, GFR 30-59 ml/min 07/17/2013 05/02/2017 Calculus of ureter 06/12/2007 03/22/2012 Urinary tract infection, site not specified 0 05/200703/22/2012 Renal colic 06/12/2007 03/22/2012 documented as of this encounter (statuses as of 08/23/2022) [facility] History of Past illness Narrative* Problem Noted [...] of this encounter (statuses as of 09/09/2022) [facility] History of Past illness Narrative* Problem Noted Date Resolved Date CKD (chronic kidney disease) stage V requiring chronic dialysis 03/01/2018 08/29/2019 Overview: Dr. Pendleton nephrology. CKD (chronic kidney disease) stage 4, GFR 15-29 ml/min 04/05/2017 03/02/2018 Overview: Dr. Nunez nephrology. CKD (chronic kidney disease) stage 3, GFR 30-59 ml/min 07/17/2013 05/02/2017 Calculus of ureter 06/12/2007 03/22/2012 Urinary tract infection, site not specified 0 05/200703/22/2012 Renal colic 06/12/2007 03/22/2012 documented as of this encounter (statuses as of 09/09/2022) [facility] History of Past illness Narrative* Problem Noted [...] of this encounter (statuses as of 09/10/2022) [facility] History of Past illness Narrative* Problem Noted [...] of this encounter (statuses as of 09/12/2022) [facility] History of Past illness Narrative* Problem Noted Date Resolved Date CKD (chronic kidney disease) stage V requiring chronic dialysis 03/01/2018 08/29/2019 Overview: Dr. Pendleton, nephrology. CKD (chronic kidney disease) stage 4, GFR 15-29 ml/min 04/05/2017 03/02/2018 Overview: Dr. Nunez nephrology. CKD (chronic kidney disease) stage 3, GFR 30-59 ml/min 07/17/2013 05/02/2017 Calculus of ureter 06/12/2007 03/22/2012 Urinary tract infection, site not specified 0 05/200703/22/2012 Renal colic 06/12/2007 03/22/2012 documented as of this encounter (statuses as of 09/13/2022) [facility] History of Past illness Narrative* Problem Noted [...] of this encounter (statuses as of 09/20/2022) [facility] History of Past illness Narrative* Problem Noted [...] of this encounter (statuses as of 09/29/2022) [facility] History of Past illness Narrative* Problem Noted [...] of this encounter (statuses as of 10/13/2022) [facility] History of Past illness Narrative* Problem Noted [...] of this encounter (statuses as of 10/25/2022) [facility] History of Past illness Narrative* Problem Noted Date Resolved Date CKD (chronic kidney disease) stage V requiring chronic dialysis 03/01/2018 08/29/2019 Overview: Dr. Pendleton, nephrology. CKD (chronic kidney disease) stage 4, GFR 15-29 ml/min 04/05/2017 03/02/2018 Overview: Dr. Nunez nephrology. CKD (chronic kidney disease) stage 3, GFR 30-59 ml/min 07/17/2013 05/02/2017 Calculus of ureter 06/12/2007 03/22/2012 Urinary tract infection, site not specified 0 05/200703/22/2012 Renal colic 06/12/2007 03/22/2012 documented as of this encounter (statuses as of 11/14/2022) [facility] History of Past illness Narrative* Problem Noted [...] of this encounter (statuses as of 11/15/2022) [facility] History of Past illness Narrative* Problem Noted Date Resolved Date CKD (chronic kidney disease) stage V requiring chronic dialysis 03/01/2018 08/29/2019 Overview: Dr. Pendleton nephrology. CKD (chronic kidney disease) stage 4, GFR 15-29 ml/min 04/05/2017 03/02/2018 Overview: Dr. Nunez nephrology. CKD (chronic kidney disease) stage 3, GFR 30-59 ml/min 07/17/2013 05/02/2017 Calculus of ureter 06/12/2007 03/22/2012 Urinary tract infection, site not specified 0 05/200703/22/2012 Renal colic 06/12/2007 03/22/2012 documented as of this encounter (statuses as of 11/16/2022) [facility] History of Past illness Narrative* Problem Noted [...] of this encounter (statuses as of 12/08/2022) [facility] History of Past illness Narrative* Problem Noted [...] of this encounter (statuses as of 12/13/2022) [facility] History of Past illness Narrative* Problem Noted Date Resolved Date CKD (chronic kidney disease) stage V requiring chronic dialysis 03/01/2018 08/29/2019 Overview: Dr. Pendleton, nephrology. CKD (chronic kidney disease) stage 4, GFR 15-29 ml/min 04/05/2017 03/02/2018 Overview: Dr. Nunez nephrology. CKD (chronic kidney disease) stage 3, GFR 30-59 ml/min 07/17/2013 05/02/2017 Calculus of ureter 06/12/2007 03/22/2012 Urinary tract infection, site not specified 0 05/200703/22/2012 Renal colic 06/12/2007 03/22/2012 documented as of this encounter (statuses as of 12/20/2022) [facility] History of Past illness Narrative* Problem Noted [...] of this encounter (statuses as of 12/26/2022) [facility] History of Past illness Narrative* Problem Noted Date Resolved Date CKD (chronic kidney disease) stage V requiring chronic dialysis 03/01/2018 08/29/2019 Overview: Dr. Pendleton nephrology. CKD (chronic kidney disease) stage 4, GFR 15-29 ml/min 04/05/2017 03/02/2018 Overview: Dr. Nunez nephrology. CKD (chronic kidney disease) stage 3, GFR 30-59 ml/min 07/17/2013 05/02/2017 Calculus of ureter 06/12/2007 03/22/2012 Urinary tract infection, site not specified 0 05/200703/22/2012 Renal colic 06/12/2007 03/22/2012 documented as of this encounter (statuses as of 01/02/2023) [facility] History of Past illness Narrative* Problem Noted [...] of this encounter (statuses as of 02/02/2023) [facility] History of Present illness Narrative* Ms. Sandy Bhatti is a 58-year-old female with a history of ESRD secondary to type 2 diabetes currently on dialysis since 02/14/2018. She is getting dialyzed on Monday at [facility] with the doctor Kristie. * History in [...] use or marijuana use. * -COVID vaccinated. [id number] [place] [address] Work Phone: chiqf complaint Narrative - Reported* ChiefComplaintFreeTextNoteForm_: * Kidney transplant surgical evaluation for potential active candidacy on kidney transplant list [id number] Work Phone: Chiis complaint Narrative - Reported* ChiefComplaintFreeTextNoteForm_: * Kidney transplant surgical evaluation [id number] [place] [address] Work Phone: Discharge summary [facility] Date/Time January 28, 2025 9:31a [facility] Medical Records Department [address] [place] [address] Emergency Department Summary 01/28/25 MR#: [id number] Acct: [id number] Name: SANDY BHATTI Rep #:[id number] : 1965 60 From: Dave christianson DO PCP: Dr. Maldonado Raza MD Status:R ER Location: ED HPI History of Present [...] intact Psych: Cooperative, appropriate mood and affect [facility] Medical History S/p small bowel obstruction Incarcerated [...] medical history of DM2, ESRD on HD Monday/Monday/Ernie, HTN, thyroid disease presents for evaluation of [...] improvement. Chest x-ray was personally interpreted by [place], ED physician. Chest x-ray with cardiomegaly and [...] 75.6 H Lymph % (Auto) 16.7 L Mcnairy % (Auto) 5.4 Eos % (Auto) 0.5 [...] bibasilar dependent atelectasis and CHF. Reading Location: [place] [address] Discharge Plan Triage Chief Complaint: Shortness of [...] MD [Primary Care Provider] - Print Language: Kazakh What to do if you have Problems For any increased pain, shortness of breath, bleeding, nausea or vomiting, chestpain, or any unexpected problems, contact your Primary Care Provider. Call [facility] ([phone]) or report to the closest Emergency Room. Call 911 if necessary. 01/28/25 0931 <Electronically signed by Dave Coronado DO> Cosigner Signature (if applicable): CC: Dr. Maldonado Raza MD ~ Signed [facility] Work Phone: Evqigation note* Diagnosis Gross hematuria documented in this encounter [facility] note* Diagnosis Ventral hernia with obstruction, without gangrene- Primary Ventral hernia, unspecified, with obstruction documented in this encounter [facility] note* Diagnosis Acute cystitis with hematuria- Primary Acute cystitis Acute left flank pain Abdominal pain, unspecified site Gross hematuria Other symptoms and signs involving the genitourinary system documented in this encounter [facility] note* Diagnosis Essential hypertension Unspecified essential hypertension Other hyperlipidemia [facility]* Diagnosis Encounter for screening mammogram for breast cancer [facility]* Diagnosis Other hyperlipidemia Essential hypertension Unspecified essential hypertension documented in this encounter [facility] note* Diagnosis Screening for cervical cancer- Primary Screening for malignant neoplasm of the cervix Controlled type 2 diabetes mellitus without complication, with long-term current use of insulin (HCC) ESRD on dialysis (HCC) End stage renal disease documented in this encounter [facility] note* Diagnosis ESRD (end stage renal disease) (HCC)- Primary End stage renal disease ESRD (end stage renal disease) (HCC) End stage renal disease documented in this encounter [facility] note* Diagnosis Onset Date Resolution Status Acute bilateral mastoiditis acute [facility] Work Phone: Evaluation note* Diagnosis Encounter for gynecological examination (general) (routine) without abnormal findings- Primary Vaginal discharge Leukorrhea, not specified as infective documented in this encounter [facility] note* Diagnosis ESRD (end stage renal disease) (HCC)- Primary End stage renal disease ESRD (end stage renal disease) (HCC) End stage renal disease documented in this encounter [facility] note* Diagnosis Other hyperlipidemia Hypothyroidism, unspecified type ESRD (end stage renal disease) (HCC) End stage renal disease [facility]* Diagnosis Controlled type 2 diabetes mellitus [...] Arteriovenous fistula, acquired [facility] Diagnosis Encounter for screening for malignant neoplasm of colon- Primary Special screening for malignant neoplasms, colon ESRD (end stage renal disease) (HCC) End stage renal disease VT (ventricular tachycardia) Paroxysmal ventricular tachycardia ASCVD (arteriosclerotic cardiovascular disease) Unspecified cardiovascular disease Family history of colon cancer Family history of malignant neoplasm of gastrointestinal tract [facility] Diagnosis Encounter for screening for malignant neoplasm of colon- Primary Special screening for malignant neoplasms, colon Special screening for malignant neoplasms, colon Pre-op evaluation Preoperative examination, unspecified [facility]* Diagnosis Essential hypertension Unspecified essential hypertension Other hyperlipidemia Hypothyroidism, unspecified type [facility]* Diagnosis Tubular adenoma- Primary Benign neoplasm of unspecified site Family history of colon cancer Family history of malignant neoplasm of gastrointestinal tract Tortuous colon Volvulus [facility]* Diagnosis ESRD (end stage renal disease) on dialysis (HCC)- Primary End stage renal disease [facility] noteNo assessment information [facility] Work [facility]: [facility]* Diagnosis ESRD (end stage renal disease) (HCC)- Primary End stage renal disease ESRD (end stage renal disease) (HCC) End stage renal disease [facility]* Diagnosis ESRD (end stage renal disease) (HCC)- Primary End stage renal disease ESRD (end stage renal disease) (HCC) End stage renal disease [facility]* Diagnosis Preop testing- Primary Preoperative examination, unspecified ESRD (end stage renal disease) (HCC) End stage renal disease [facility]* Diagnosis Primary hypertension Unspecified essential hypertension documented in this encounter [facility] note* Diagnosis ESRD (end stage renal disease) (HCC)- Primary End stage renal disease ESRD (end stage renal disease) (HCC) End stage renal disease [facility] Diagnosis Controlled type 2 diabetes mellitus without complication, with long-term current use of insulin (HCC)- Primary ESRD on dialysis (HCC) End stage renal disease Encounter for screening mammogram for breast cancer ESRD (end stage renal disease) (HCC) End stage renal disease documented [facility]* Diagnosis ESRD (end stage renal disease) (HCC)- Primary End stage renal disease ESRD (end stage renal disease) (HCC) End stage renal disease [facility]* Diagnosis Idiopathic corneal edema, bilateral- Primary Controlled type 2 diabetes mellitus without complication, with long-term current use of insulin (HCC) Pseudophakia Lens replaced by other means PCO (posterior capsular opacification), left After-cataract, unspecified Senile nuclear cataract, right ESRD (end stage renal disease) (HCC) End stage renal disease [facility]* Diagnosis Hyperkalemia- Primary Hyperpotassemia Hypothyroidism, unspecified type Abnormal EKG Nonspecific abnormal electrocardiogram (ECG) (EKG) Primary hypertension Unspecified essential hypertension Controlled type 2 diabetes mellitus without complication, with long-term current use of insulin (HCC) Need for COVID-19 vaccine ESRD (end stage renal disease) (HCC) End stage renal disease [facility]* Diagnosis Encounter for screening mammogram for breast cancer ESRD (end stage renal disease) (HCC) End stage renal disease [facility] Diagnosis ESRD (end stage renal disease) (HCC)- Primary End stage renal disease ESRD (end stage renal disease) (HCC) End stage renal disease [facility]* Diagnosis Encounter for other preprocedural examination Cardiomyopathy in diseases classified elsewhere (CMS/HCC) documented in this encounter [facility] Work Phone: Evaluation note* Diagnosis Encounter for other preprocedural examination Cardiomyopathy in diseases classified elsewhere (CMS/HCC) documented in this encounter [facility] Work Phone: Evaluation note* Diagnosis Encounter for other preprocedural examination documented in this encounter [facility] Work Phone: Evaluation note* Diagnosis Preoperative examination- Primary Preoperative examination, unspecified Hypothyroidism, unspecified type Primary hypertension Unspecified essential hypertension Other hyperlipidemia ESRD (end stage renal disease) (HCC) End stage renal disease ASCVD (arteriosclerotic cardiovascular disease) Unspecified cardiovascular disease Controlled type 2 diabetes mellitus without complication, with long-term current use of insulin ([facility]) History of CHF (congestive heart failure) Personal history of other diseases of circulatory system Heart murmur, systolic Undiagnosed cardiac murmurs Idiopathic corneal edema of both eyes Idiopathic corneal edema Idiopathic corneal edema, bilateral [facility]* Diagnosis Status post corneal transplant- Primary Cornea replaced by transplant 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 [facility]* Diagnosis Status post corneal transplant- Primary Cornea replaced by transplant Abrasion of left cornea, initial encounter 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 documented [facility] this [facility]* Diagnosis Abnormal EKG- Primary Nonspecific abnormal electrocardiogram (ECG) (EKG) ASCVD (arteriosclerotic cardiovascular disease) Unspecified cardiovascular disease Primary hypertension Unspecified essential hypertension Mixed hyperlipidemia Congestive heart failure, unspecified HF chronicity, unspecified heart failure type ([facility]) Controlled type 2 diabetes mellitus without complication, with long-term current use of insulin ([facility]) Stage 5 chronic kidney disease on chronic dialysis ([facility]) History of echocardiogram Other specified personal history presenting hazards to health History of cardiovascular stress test Other specified personal history presenting hazards to health History of left heart catheterization (LHC) History of carotid artery stenosis Personal history of other diseases of circulatory system Former smoker Personal history of tobacco use, presenting hazards to health [facility] encounter [facility]* Diagnosis Hypothyroidism, unspecified type Primary hypertension Unspecified essential hypertension documented in this encounter [facility] note* Diagnosis ESRD (end stage renal disease) (HCC)- Primary End stage renal disease ESRD (end stage renal disease) ([facility]) End stage renal disease [facility]* Diagnosis Pre-op testing- Primary Preoperative examination, unspecified ESRD (end stage renal disease) (HCC) End stage renal disease documented [facility]* Diagnosis Status post corneal transplant- Primary Cornea replaced by transplant PCO (posterior capsular opacification), left After-cataract, unspecified [facility]* Diagnosis Controlled type 2 diabetes mellitus [...] Other hypertrophic cardiomyopathy [facility]* Diagnosis ESRD on dialysis (HCC)- Primary End stage renal disease [facility]* Diagnosis Encounter for preoperative anesthesiology assessment for vascular surgery- Primary Swelling of right upper extremity [facility]* Diagnosis ESRD on dialysis (HCC)- Primary End stage renal disease Swelling of right upper extremity [facility]* Diagnosis Essential hypertension Unspecified essential hypertension [facility]* Diagnosis Congestive heart failure, unspecified HF [...] hazards to health [facility]* Diagnosis Medicare annual wellness visit, subsequent- [...] (of renal origin) [facility]* Diagnosis Peripheral arterial disease (HCC)- Primary Peripheral vascular disease, unspecified ESRD on dialysis (HCC) End stage renal disease [facility]* Diagnosis Pre-transplant evaluation for kidney transplant documented in this encounter [facility] Work Phone: Evaluation note* Diagnosis Encounter for screening mammogram for breast cancer documented in this encounter [facility] note* Diagnosis Preop cardiovascular exam- Primary Pre-operative cardiovascular examination LVH (left ventricular hypertrophy) due to hypertensive disease, without heart failure Kidney transplant candidate Coronary arteriosclerosis Coronary atherosclerosis of unspecified type of vessel, [place] or graft documented in this encounter [facility] Work Phone: Evaluation note* Diagnosis End stage renal disease (Multi)- Primary End stage renal disease Encounter for therapeutic drug level monitoring documented in this encounter [facility] Work Phone: Evaluation note* Diagnosis Pre-transplant evaluation for kidney transplant Transient ischemic attack, remote, resolved Transient ischemic attack (TIA), and cerebral infarction without residual deficits Other specified symptoms and signs involving the circulatory and respiratory systems documented in this encounter [facility] Work Phone: Evaluation note* Diagnosis Pre-transplant evaluation for kidney transplant Coronary artery disease involving [place] heart without angina pectoris, unspecified vessel or lesion type Pre-transplant evaluation for kidney transplant Coronary artery disease involving [place] heart without angina pectoris, unspecified vessel or lesion type documented in this encounter [facility] Work Phone: Evaluation note* Diagnosis Pre-transplant evaluation for kidney transplant Coronary artery disease involving [place] heart without angina pectoris, unspecified vessel or lesion type Pre-transplant evaluation for kidney transplant Coronary artery disease involving [place] heart without angina pectoris, unspecified vessel or lesion type documented in this encounter [facility] Work Phone: Evaluation note* Diagnosis Pre-transplant evaluation for kidney transplant documented in this encounter [facility] Work Phone: Evaluation note* Diagnosis ASCVD (arteriosclerotic cardiovascular disease) Unspecified cardiovascular disease Primary hypertension Unspecified essential hypertension [facility]* Diagnosis Primary hypertension Unspecified essential hypertension documented in this encounter [facility] note* Diagnosis LVH (left ventricular hypertrophy) due to hypertensive disease, without heart failure Kidney transplant candidate Coronary arteriosclerosis Coronary atherosclerosis of unspecified type of vessel, [place] or graft documented in this encounter [facility] Work Phone: Evaluation note* Diagnosis Other hyperlipidemia documented in this encounter [facility] note* Diagnosis Abnormal screening mammogram Abnormal mammogram, unspecified documented in this encounter [facility] note* Diagnosis Abnormal screening mammogram Abnormal mammogram, unspecified documented in this encounter [facility] note* Diagnosis Controlled type 2 diabetes mellitus without complication, with long-term current use of insulin ([facility])- Primary Primary hypertension Unspecified essential hypertension Hypothyroidism, unspecified type ESRD (end stage renal disease) ([facility]) End stage renal disease Congestive heart failure, unspecified HF chronicity, unspecified heart failure type ([facility]) VT (ventricular tachycardia) ([facility]) Paroxysmal ventricular tachycardia Need for vaccination Need for prophylactic vaccination and inoculation against unspecified single disease Migraine without aura, not intractable, without status migrainosus Cervical cancer screening Screening for malignant neoplasm of the cervix documented in this encounter [facility] note* Diagnosis Controlled type 2 diabetes mellitus without complication, with long-term current use of insulin ([facility])- Primary documented in this encounter [facility] note* Diagnosis ESRD on dialysis ([facility])- Primary End stage renal disease documented in this encounter [facility] note* Diagnosis ESRD (end stage renal disease) (HCC)- Primary End stage renal disease documented in this encounter [facility] note* Diagnosis ESRD on dialysis (HCC)- Primary End stage renal disease ESRD on dialysis ([facility]) End stage renal disease documented in this encounter [facility] note* Diagnosis Controlled type 2 diabetes mellitus without complication, with long-term current use of insulin ([facility])- Primary Status post corneal 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 ESRD on dialysis ([facility]) End stage renal disease documented in this encounter [facility] note* Diagnosis Congestive heart failure, unspecified HF chronicity, unspecified heart failure type ([facility])- Primary ESRD on dialysis ([facility]) End stage renal disease Anemia of chronic renal failure, stage 5 ([facility]) Hypoxia Hypoxemia [facility]* Diagnosis Stage 5 chronic kidney disease on chronic dialysis ([facility])- Primary Diastolic congestive heart failure, unspecified HF chronicity ([facility]) Hypertensive left ventricular hypertrophy with heart failure ([facility]) Primary hypertension Unspecified essential hypertension Abnormal EKG Nonspecific abnormal electrocardiogram (ECG) (EKG) Hyperlipidemia, unspecified hyperlipidemia type Type 2 diabetes mellitus with other specified complication, with long-term current use of insulin (HCC) [facility] ASCVD (arteriosclerotic cardiovascular disease) Unspecified cardiovascular disease [facility] Diagnosis Pre-transplant evaluation for kidney transplant documented in this encounter [facility] Work Phone: Evaluation note* Diagnosis Physical [...] unspecified single disease [facility] * [...] and cerebrovascular disease. * Dialysis: Hemodialysis:Dialysis Center: [facility] and Dry weight: 66.6 kg kg/lbs * Urine Status: oliguric. * Disease Complications: hypothyroidism. * Symptoms Currently Experiencing: edema and oliguria. * Compliance/Tolerance/Control: good compliance with treatment. * I am seeing SANDY BHATTI at the referring provider's request for surgical suitability for renal transplant candidate listing at [facility] [place]. * History of Present Illness Comments: SANDY [...] Status: * Dialysis Center: on HD at [facility] * Dry Weight: 66.6 kg * [...] She does not need to see a [employer] Consultant. * She has a history of a [...] * Support Systems: * Her and her yzgghk-mk-ymz will be her primary support. * Environment: * She is in a safe environment without fall risks. * She is in a safe and stable living situation. * Beliefs: * She will accept blood products if needed. * She does not have any potential living donors. * She is not vaccinated against COVID-19. [facility] Work Phone: History of Present illness Narrative* Kidney Transplant * Reason For Visit: Pre-Transplant. * History of Present Illness Comments: Kidney transplant surgical evaluation * I am seeing SANDY BHATTI at the referring provider's request for surgical suitability for renal transplant candidate listing at [facility] [place]. * History of Present Illness Comments: SANDY [...] hernia repair * Breast reduction * . [facility] [address] Work Phone: Hospital course Narrative No data available for this section [facility] Hospital Discharge instructionsAdditional Instructions Thank you for trusting us with your care today! Your labs and images were reassuring. The CT scan your abdomen pelvis shows your chronic hernia but no obvious acute surgical pathology such as bowel obstructions or perforations. Your labs are consistent with end-stage renal disease otherwise unremarkable. It is unclear what caused your symptoms today. However they do not appear to be life-threatening. Please take Tylenol (2 pills, 650 mg), ibuprofen (2 pills, 400 mg) every 6 hours as needed for pain and fever control. Please return to the emergency department if your symptoms change or worsen. Please follow with your primary care physician and gastroenterology for further outpatient evaluation and management.[facility] Work Phone: Progress note Author [place] [facility] Note Date/Time January 30, 2025 12:10 pm [facility] Medical Records Department [address] [place] [address] Progress Note - Nephrology 01/30/25 1155 MR#: [id number] Acct: [id number] Name: SANDY BHATTI Rep #:[id number] : 1965 60 From: [place] MD PCP: Dr. aMldonado Raza MD Status:A DM IN Location: [place] [address] Subjective Subjective No new complaints Objective Data [...] % (Auto) 66.4, Lymph % (Auto) 24.6, Mcnairy% (Auto) 6.3, Eos % (Auto) 1.0, Baso [...] adjusted down. Possible discharge home today 01/30/25 1155 <Electronically signed by [place] Vasques MD> Cosigner Signature (if applicable): CC: ~ Signed [facility] Work Phone: Reason for referral (narrative)* Diagnostic Procedure Only (Routine) - Pending Review Specialty Diagnoses / Procedures Referred By Adele nogueira Referred To Contact [facility] Diagnoses Encounter for screening mammogram for breast cancer Procedures KUNAL SCREENING SCREENING MAMMOGRAPHY BI 2-VIEW BREAST INC CAD Madlonado Raza MD [address] [place] [address] Br Imaging [address] [place] [address] Referral ID Status Reason Start Date Expiration Date Visits Requested Visits Authorized [id number] Pending Review Auto-Generat ed Referral 02/09/2022 03/11/2023 1 1 [facility] for referral (narrative)* Outpatient Procedure (Routine) - Closed Specialty Diagnoses / Procedures Referred By Adele nogueira Referred To Contact Diagnoses Special screening for malignant neoplasms, colon Pre-op evaluation Procedures COLONOSCOPY SCREENING COLONOSCOPY FLX DX W/COLLJ SPEC WHEN PFRMD Lisa Heredia PA-C [address] [place] [address] [facility] [address] [place] [address] Referral ID Status Reason Start Date Expiration Date V isits Requested Visits Authorized [id number] Closed Auto-Generate d Referral 09/20/2022 09/20/2023 1 1 [facility] for referral (narrative)* Outpatient Procedure (Urgent) - Pending Review Specialty Diagnoses / Procedures Referred By Contac t [facility] Diagnoses ESRD (end stage renal disease) (HCC) Procedures ECG COMPLETE ECG ROUTINE ECG W/LEAST 12 LDS W/I&R Medardo Rogel MD [address] [address] [facility] [place] [address] [place] [address] Referral ID Status Reason Start Date Expiration Date Visits Requested Visits Authorized [id number] Pending Review Auto-Generat ed Referral 04/10/2023 04/06/2024 1 1 [facility] for referral (narrative)* Diagnostic Procedure Only (Routine) - Pending Review Specialty Diagnoses / Procedures [facility] Referred To Contact [facility] Diagnoses Encounter for screening mammogram for breast cancer Procedures KUNAL SCREENING SCREENING MAMMOGRAPHY BI 2-VIEW BREAST INC Ifeoma Song APRN.SCREW MACHINE OPERATOR SWISS TYPE [address] [place] [address] Br Imaging [address] [place] [address] Referral ID Status Reason Start Date Expiration Date Visits Requested Visits Authorized [id number] Pending Review Auto-Generat ed Referral 06/12/2023 07/11/2024 1 1 [facility] for referral (narrative)* Outpatient Procedure (Urgent) - Pending Review Specialty Diagnoses / Procedures [facility] Diagnoses ESRD (end stage renal disease) (HCC) Procedures ECG COMPLETE ECG ROUTINE ECG W/LEAST 12 LDS W/I&R Medardo Rogel MD [address] [address] [facility] [place] [address] [place] [address] Referral ID Status Reason Start Date Expiration Date Visits Requested Visits Authorized [id number] Pending Review Auto-Generat ed Referral 3 06/18/2024 1 1 [facility] for referral (narrative)* Diagnostic Procedure Only (Routine) - Closed Specialty Diagnoses / Procedures Referred By Contac t Referred To Contact [facility] Diagnoses Encounter for screening mammogram for breast cancer Procedures KUNAL SCREENING SCREENING MAMMOGRAPHY BI 2-VIEW BREAST INC CAD Maldonado Raza MD [address] [place] [address] Br Imaging [address] [place] [address] Referral ID Status Reason Start Date Expiration Date V isits Requested Visits Authorized [id number] Closed Auto-Generate d Referral 02/09/2022 03/11/2023 1 1 [facility] for referral (narrative)* Outpatient Procedure (Urgent) - Pending Review Specialty Diagnoses / Procedures Referred By Contac t Referred To Contact [facility] [place] Diagnoses ESRD (end stage renal disease) (HCC) Procedures ECG COMPLETE ECG ROUTINE ECG W/LEAST 12 LDS W/I&[place] [address] [place] [address] [place] [id number] [place] [address] Referral ID Status Reason Start Date Expiration Date Visits Requested Visits Authorized [id number] Pending Review Auto-Generat ed Referral 3 07/16/2024 1 1 [facility] for referral (narrative)* Outpatient Procedure (Routine) - Authorized Specialty Diagnoses / Procedures Referred By Contac t Referred To Contact [facility] [place] Diagnoses Heart murmur, systolic Procedures ECHO ECHO TTHRC R-T 2D W/WOM-MODE COMPL SPEC&COLR D Maldonado Raza MD [address] [place] [address] [facility] [address] [address] Referral ID Status Reason Start Date Expiration Date Visits Requested Visits Authorized [id number] Authorized Auto-Generat ed Referral 10/26/2023 10/25/2024 1 1 [facility] for referral (narrative)* Outpatient Procedure (Routine) - Pending Review Specialty Diagnoses / Procedures Referred By Contac t Referred To Contact [facility] [place] Diagnoses Abnormal EKG Procedures ECG COMPLETE ECG ROUTINE ECG W/LEAST 12 LDS W/I&R Dave Pickett DO [address] [place] [address] [facility] [address] [address] Referral ID Status Reason Start Date Expiration Date Visits Requested Visits Authorized [id number] Pending Review Auto-Generat ed Referral 12/07/2023 12/06/2024 1 1 [facility] for referral (narrative)* Outpatient Procedure (Urgent) - Pending Review Specialty Diagnoses / Procedures Referred By Contac t Referred To Contact [facility] [place] Diagnoses Pre-op testing Procedures ECG COMPLETE ECG ROUTINE ECG W/LEAST 12 LDS W/I&[place] [address] [place] [address] [facility] [address] [address] Referral ID Status Reason Start Date Expiration Date Visits Requested Visits Authorized [id number] Pending Review Auto-Generat ed Referral 01/18/2024 01/16/2025 1 1 T [facility] for referral (narrative)* Outpatient Procedure (Routine) - Authorized Specialty Diagnoses / Procedures Referred By Contac t Referred To Contact [facility] [place] Diagnoses ESRD on dialysis (HCC) Procedures US A/V FISTULA GRAFT UNL VAS LAB DUPLEX SCAN HEMODIALYSIS ACCESS Luna Thomas MD [address] [place] [address] [facility] [address] [address] Referral ID Status Reason Start Date Expiration Date Visits Requested Visits Authorized [id number] Authorized Auto-Generat ed Referral 05/01/2024 05/01/2025 1 1 [facility] for referral (narrative)* Outpatient Procedure (Routine) - New Request Specialty Diagnoses / Procedures Referred By Adele nogueira Ref[facility] Diagnoses ASCVD (arteriosclerotic cardiovascular disease) Procedures ECG COMPLETE ECG ROUTINE ECG W/LEAST 12 LDS W/I&R Mandie Younger APRN.CNP [address] [place] [address] [facility] [address] [address] Referral ID Status Reason Start Date Expiration Date Visits Requested Visits Authorized [id number] New Request Auto-Generat ed Referral 06/11/2024 06/11/2025 1 1 [facility] for referral (narrative)No [facility] for [facility] Reason for visit Narrative* Outpatient Procedure (Routine) - Closed Specialty Diagnoses / Procedures Referred By Adele nogueira Referred To Contact Diagnoses Special screening for malignant neoplasms, colon Pre-op evaluation Procedures COLONOSCOPY SCREENING COLONOSCOPY FLX DX W/COLLJ SPEC WHEN PFRMD Lisa Heredia PA-C [address] [place] [address] [facility] [address] [place] [address] Referral ID Status Reason Start Date Expiration Date V isits Requested Visits Authorized [id number] Closed Auto-Generate d Referral 09/20/2022 09/20/2023 1 1 [facility] for visit Narrative* Diagnostic Procedure Only (Routine) - Closed Specialty Diagnoses / Procedures Referred By Contac t Referred To Contact [facility] Diagnoses Encounter for screening mammogram for breast cancer Procedures KUNAL SCREENING SCREENING MAMMOGRAPHY BI 2-VIEW BREAST INC CAD Maldonado Raza MD [address] [place] [address] [facility] Imaging [address] [place] [address] Referral ID Status Reason Start Date Expiration Date V isits Requested Visits Authorized [id number] Closed Auto-Generate d Referral 02/09/2022 03/11/2023 1 1 [facility] for visit Narrative* Imaging (Routine) - Pending Review Specialty Diagnoses / Procedures Referred By Adele t Referred To Contact Radiology Diagnoses Pre-transplant evaluation for kidney transplant Procedures CT cardiac [place] [address] [facility] Department [place] [address] Phone: tel: fax: Referral ID Status Reason Start Date Expiration Date Visits Requested Visits Authorized [id number] Pending Review Perform Procedure 03/20/2024 03/20/2025 1 1 [facility] Work Phone: Rekuvn for visit Narrative* Diagnostic Procedure Only (Routine) - Closed Specialty Diagnoses / Procedures Referred By Adele t Referred To Contact [facility] Diagnoses Encounter for screening mammogram for breast cancer Procedures KUNAL SCREENING SCREENING MAMMOGRAPHY BI 2-VIEW BREAST INC CAD Ifeoma Del Cid, DIRECTOR OF PHYSICAL EDUCATION.SCREW MACHINE OPERATOR SWISS TYPE [address] [place] [address] [facility] Imaging [address] [place] [phone] Referral ID Status Reason Start Date Expiration Date V isits Requested Visits Authorized [id number] Closed Auto-Generate d Referral 06/12/2023 07/11/2024 1 1 [facility] for visit Narrative* Cardiovascular (Routine) - Authorized Specialty Diagnoses / Procedures Referred By Adele t Referred To Contact Diagnoses Preop cardiovascular exam Procedures ECG 12 lead (Clinic Performed) [place] [address] [place] [address] Phone: tel: fax: Referral ID Status Reason Start Date Expiration Date V isits Requested Visits Authorized [id number] Authorized 07/23/2024 07/23/2025 1 1 [facility] Work Phone: reason for visit Narrative* Imaging (Routine) - Authorized Specialty Diagnoses / Procedures Referred By Contac t Referred To Contact Cardiology Diagnoses Pre-transplant evaluation for kidney transplant Transient ischemic attack, remote, resolved Procedures Vascular [place] carotid [place] [address] [facility] Department [place] [address] Phone: tel: fax: Referral ID Status Reason Start Date Expiration Date Visits Requested Visits Authorized [id number] Authorized Perform Procedure 03/18/2024 03/18/2025 1 1 [facility] Work Phone: reason for visit Narrative* Imaging (Routine) - Authorized Specialty Diagnoses / Procedures Referred By Contac t Referred To Contact Radiology Diagnoses LVH (left ventricular hypertrophy) due to hypertensive disease, without heart failure Kidney transplant candidate Coronary arteriosclerosis Procedures MR cardiac morphology and function w and [place] [address] [place] [address] Phone: tel: fax: Referral ID Status Reason Start Date Expiration Date Visits Requested Visits Authorized [id number] Authorized Perform Procedure 07/23/2025 1 1 [facility] Work Phone: reason for visit Narrative* Diagnostic Procedure Only (Routine) - Closed Specialty Diagnoses / Procedures Referred By Contac t Referred To Contact [facility] Diagnoses Abnormal screening mammogram Procedures US BREAST LTD RIGHT US BREAST UNI REAL TIME WITH IMAGE LIMITED Ifeoma Del Cid, DIRECTOR OF PHYSICAL EDUCATION.SCREW MACHINE OPERATOR SWISS TYPE [address] [place] [address] Phone: tel: fax: [facility] [address] [place] [address] Referral ID Status Reason Start Date Expiration Date V isits Requested Visits Authorized [id number] Closed Auto-Generate d Referral 07/16/2024 08/15/2025 1 1 [facility] for visit Narrative* Diagnostic Procedure Only (Routine) - Closed Specialty Diagnoses / Procedures Referred By Adele t Referred To Contact [facility] Diagnoses Abnormal screening mammogram Procedures KUNAL DIAGNOSTIC BILATERAL DIAGNOSTIC MAMMOGRAPHY COMPUTER-AIDED DETCJ BI Ifeoma Del Cid, DIRECTOR OF PHYSICAL EDUCATION.SCREW MACHINE OPERATOR SWISS TYPE [address] [place] [address] Phone: tel: fax: [facility] [address] [place] [address] Referral ID Status Reason Start Date Expiration Date V isits Requested Visits Authorized [id number] Closed Auto-Generate d Referral 07/16/2024 08/15/2025 1 1 [facility] for visit Narrative* PFT (Routine) - Pending Review Specialty Diagnoses / Procedures Referred By Adele nogueira Referred To Contact Diagnoses Pre-transplant evaluation for kidney transplant Procedures Pulmonary Stress Test (6 Min. Walk) [place] [address] [address] Department [place] [address] Phone: tel: fax: Referral ID Status Reason Start Date Expiration Date V isits Requested Visits Authorized [id number] Pending Review 03/31/2025 03/31/2026 1 1 [facility] Work Phone: Summary Purpose Family History Unknown Family Member Name Dates Details No [...] history: Mother, Father(V49.89, Z78.9) Status:Active Advance Directives Documents on File Type Date Recorded Patient Bladder Blower Expl anation Advance Directive(s) 04/21/2021 5:23 PM [...] Documents on File Type Date Recorded Patient Bladder Blower Expl anation Advance Directive(s) 04/21/2021 5:23 PM [...] Will No June 21 2:58pm Power of Drum Attendant No June 21, 2022 2:58pm Advance Directive Response Recorded Date/ Time Advance Directives No April 19, 2019 1:12pm Living Will No September 19 11:21am Power of Drum Attendant No September 19, 2022 11:21am Advance Directive Response Recorded Date/ Time Advance Directives No April 19, 2019 2:12pm Living Will No September 19 12:21pm Power of Drum Attendant No September 19, 2022 12:21pm Advance Directive Response Recorded Date/ Time Do you have a Healthcare Power of Drum Attendant? No January 28, 2025 7:58am Advance Directives No April 19, 2019 2:12pm Advance Directive Response Recorded Date/ Time Do you have a Healthcare Power of Drum Attendant? No January 28, 2025 10:17am Advance Directives No April 19, 2019 2:12pm Advance Directive Response Recorded Date/ Time Do you have a Healthcare Power of Drum Attendant? No January 28, 2025 10:17am Do you have a Healthcare Power of Drum Attendant? No May 17, 2025 10:07pm Advance Directives No April 19, 2019 2:12pm Hospital Course Note [facility] Patient Name: SANDY BHATTI [facility] [place] Date of : [address] [address] Unit Number: [id number] Number: [id number] Summary Patient Status: ADM INoAttending Doctor: Anderson [...] Referral Specialty Diagnoses / Procedures Referred By Adele nogueira Referred To Contact CT IMAGING Diagnoses Gross hematuria Procedures CT FLANK WO IVCON CT ABD & PELVIS W/O CONTRAST Maldonado Raza MD [address] [place] [address] Ct Imaging Referral ID Status Reason Start Date Expiration Date V isits Requested Visits Authorized [id number] Closed Auto-Generate d Referral 11/26/2021 12/26/2022 1 1 Specialty Diagnoses / Procedures Referred By Contac t Referred To Contact General Surgery Diagnoses Ventral hernia with obstruction, without gangrene Procedures CONSULT TO GENERAL SURGERY OFFICE/OUTPATIENT [facility] 60-74 MINUTES Maldonado Raza MD [facility] [place] [address] Referral ID Status Reason Start Date Expiration Date Visits Requested Visits Authorized [id number] Authorized PCP Requested Referral 12/09/2021 12/09/2022 1 1 Specialty Diagnoses / Procedures Referred By Contac t Referred To Contact Ophthalmology Diagnoses Controlled type 2 diabetes mellitus without complication, with long-term current use of insulin (HCC) Procedures CONSULT TO OPHTHALMOLOGY OFFICE/OUTPATIENT [facility] 60-74 MINUTES Maldonado Raza MD [facility] [place] [address] Referral ID Status Reason Start Date Expiration Date Visits Requested Visits Authorized [id number] Authorized PCP Requested Referral 05/02/2022 05/02/2023 1 1 Specialty Diagnoses / Procedures Referred By Contac t Referred To Contact Gynecology Diagnoses Screening for cervical cancer Procedures CONSULT TO GYNECOLOGY OFFICE/OUTPATIENT [facility] 60-[place] [address] [place] [address] Referral ID Status Reason Start Date Expiration Date Visits Requested Visits Authorized [id number] Authorized PCP Requested Referral Auto-Generate d Referral 05/02/2022 05/02/2023 1 1 Specialty Diagnoses / Procedures Referred By Contac t Referred To Contact Cardiology Diagnoses Encounter for other preprocedural examination Procedures Transthoracic Echo (TTE) Complete ME ECHO TRANSTHORC R-T 2D W/WO M-MODE REC F-UP/LMTD ME DOP ECHOCARD COLOR FLOW VELOCITY MAPPING ME DOP ECHOCARD PULSE WAVE W/SPECTRAL F-UP/[place] [address] [address] [facility] [place] [address] Referral ID Status Reason Start Date Expiration Date Visits Requested Visits Authorized [id number] Authorized Perform Procedure 3 08/18/2024 1 1 Specialty Diagnoses / Procedures Referred By Contac t Referred To Contact Radiology Diagnoses Encounter for other preprocedural examination Procedures Nuclear Stress Test CHG MYOCARDIAL SPECT MULTIPLE STUDIES CHG MYOCARDIAL SPECT SINGLE STUDY AT REST OR STRESS ME CV STRS TST XERS&/OR RX CONT ECG W/O I&R ME CV STRS TST XERS&/OR RX CONT ECG I&R ONLY ME CV STRS TST XERS&/OR RX CONT ECG TRCG ONLY ME CV STRS TST XERS&/OR RX CONT ECG W/SI&[place] [address] [address] [facility] [place] [id number] Referral ID Status Reason Start Date Expiration Date V isits Requested Visits Authorized [id number] Authorized 06/02/2023 11/29/2023 5 5 Specialty Diagnoses / Procedures Referred By Adele t Referred To Contact Diagnoses Pre-transplant evaluation for kidney transplant Coronary artery disease involving [place] heart without angina pectoris, unspecified vessel or lesion type Procedures Cardiology Interpretation Of Nuclear Stress - See Other Report [place] [id number] [address] [facility] [place] [address] Referral ID Status Reason Start Date Expiration Date V isits Requested Visits Authorized [id number] Pending Review 04/16/2024 04/16/2025 1 1 Specialty Diagnoses / Procedures Referred By Contac t Referred To Contact Radiology Diagnoses Pre-transplant evaluation for kidney transplant Coronary artery disease involving [place] heart without angina pectoris, unspecified vessel or lesion type Procedures Nuclear Stress Test CHG MYOCARDIAL SPECT MULTIPLE STUDIES Roly Font[place] [id number] Coulter [facility] [place] [address] [place] [address] Referral ID Status Reason Start Date Expiration Date V isits Requested Visits Authorized [id number] Authorized 03/20/2024 03/20/2025 5 5 Specialty Diagnoses / Procedures Referred By Adele t Referred To Contact Radiology Diagnoses Pre-transplant evaluation for kidney transplant Procedures CT abdomen [place] [id number] [address] Department of Surgery-Transplant [place] [id number] [facility] [place] [address] Referral ID Status Reason Start Date Expiration Date Visits Requested Visits Authorized [id number] Authorized Perform Procedure 03/20/2024 03/20/2025 1 1 [...] on dialys is January 28, 2025 9:25am Chief Complaint Admit Date HYPOXIA January 28, 2025 9:25a m Hypoxia January 29, 2025 11:26 am Hypoxia January 30, 2025 9:04a m N/V May 17, 2025 9:17pm Reason for Visit Admit Date Congestive heart failure (CHF) January 28, 2025 [...] content) DATE CREATED AUTHOR 02/22/2018 [facility] DATE CREATED AUTHOR AUTHOR'S ORGANIZ ATION 09/12/2018 [facility] [place] DATE CREATED AUTHOR AUTHOR'S ORGANIZ ATION 02/13/2023 [facility] ([place]) DATE CREATED AUTHOR AUTHOR'S ORGANIZ ATION 06/09/2023 [facility] DATE CREATED AUTHOR AUTHOR'S ORGANIZ ATION 06/21/2023 [facility] DATE CREATED AUTHOR AUTHOR'S ORGANIZ ATION 01/26/2024 [facility] DATE CREATED AUTHOR AUTHOR'S ORGANIZ ATION 05/14/2024 [facility] DATE CREATED AUTHOR AUTHOR'S ORGANIZ ATION 08/22/2024 [facility] DATE CREATED AUTHOR AUTHOR'S ORGANIZ ATION 12/28/2024 [facility] DATE CREATED AUTHOR AUTHOR'S ORGANIZ ATION 02/07/2025 [facility] DATE CREATED AUTHOR AUTHOR'S ORGANIZ ATION 02/24/2025 [facility] DATE CREATED AUTHOR AUTHOR'S ORGANIZ ATION 04/25/2025 [facility] DATE CREATED AUTHOR AUTHOR'S ORGANIZ ATION 05/14/[address] [facility] Source Comments (unrecognize d section and content) In the event this informatio n is protected by the Federal Confidentiality of Alcohol and Drug Abuse Patient Records regulations: The Federal rules restrict any use of the information to criminally investigate or prosecute any alcohol or drug abuse patient.[facility] HealthIn the event this information is protected by the Federal Confidentiality of Alcohol and Drug Abuse Patient Records regulations: The Federal rules restrict any use of the information to criminally investigate or prosecute any alcohol or drug abuse patient.[facility] HealthIn the event this information is protected by the Federal Confidentiality of Alcohol and Drug Abuse Patient Records regulations: The Federal rules restrict any use of the information to criminally investigate or prosecute any alcohol or drug abuse patient.[facility] HealthIn the event this information is protected by the Federal Confidentiality of Alcohol and Drug Abuse Patient Records regulations: The Federal rules restrict any use of the information to criminally investigate or prosecute any alcohol or drug abuse patient.[facility] HealthIn the event this information is protected by the Federal Confidentiality of Alcohol and Drug Abuse Patient Records regulations: The Federal rules restrict any use of the information to criminally investigate or prosecute any alcohol or drug abuse patient.[facility] HealthIn the event this information is protected by the Federal Confidentiality of Alcohol and Drug Abuse Patient Records regulations: The Federal rules restrict any use of the information to criminally investigate or prosecute any alcohol or drug abuse patient.[facility] HealthIn the event this information is protected by the Federal Confidentiality of Alcohol and Drug Abuse Patient Records regulations: The Federal rules restrict any use of the information to criminally investigate or prosecute any alcohol or drug abuse patient.[facility] HealthIn the event this information is protected by the Federal Confidentiality of Alcohol and Drug Abuse Patient Records regulations: The Federal rules restrict any use of the information to criminally investigate or prosecute any alcohol or drug abuse patient.[facility] HealthIn the event this information is protected by the Federal Confidentiality of Alcohol and Drug Abuse Patient Records regulations: The Federal rules restrict any use of the information to criminally investigate or prosecute any alcohol or drug abuse patient.[facility] HealthIn the event this information is protected by the Federal Confidentiality of Alcohol and Drug Abuse Patient Records regulations: The Federal rules restrict any use of the information to criminally investigate or prosecute any alcohol or drug abuse patient.Prem[facility] HealthIn the event this information is protected by the Federal Confidentiality of Alcohol and Drug Abuse Patient Records regulations: The Federal rules restrict any use of the information to criminally investigate or prosecute any alcohol or drug abuse patient.[facility] HealthIn the event this information is protected by the Federal Confidentiality of Alcohol and Drug Abuse Patient Records regulations: The Federal rules restrict any use of the information to criminally investigate or prosecute any alcohol or drug abuse patient.[facility] HealthIn the event this information is protected by the Federal Confidentiality of Alcohol and Drug Abuse Patient Records regulations: The Federal rules restrict any use of the information to criminally investigate or prosecute any alcohol or drug abuse patient.Prem[facility] HealthIn the event this information is protected by the Federal Confidentiality of Alcohol and Drug Abuse Patient Records regulations: The Federal rules restrict any use of the information to criminally investigate or prosecute any alcohol or drug abuse patient.Prem[facility] HealthIn the event this information is protected by the Federal Confidentiality of Alcohol and Drug Abuse Patient Records regulations: The Federal rules restrict any use of the information to criminally investigate or prosecute any alcohol or drug abuse patient.Prem[facility] HealthIn the event this information is protected by the Federal Confidentiality of Alcohol and Drug Abuse Patient Records regulations: The Federal rules restrict any use of the information to criminally investigate or prosecute any alcohol or drug abuse patient.Prem[facility] HealthIn the event this information is protected by the Federal Confidentiality of Alcohol and Drug Abuse Patient Records regulations: The Federal rules restrict any use of the information to criminally investigate or prosecute any alcohol or drug abuse patient.Prem[facility] HealthIn the event this information is protected by the Federal Confidentiality of Alcohol and Drug Abuse Patient Records regulations: The Federal rules restrict any use of the information to criminally investigate or prosecute any alcohol or drug abuse patient.Premier HealthIn the event this information is protected by the Federal Confidentiality of Alcohol and Drug Abuse Patient Records regulations: The Federal rules restrict any use of the information to criminally investigate or prosecute any alcohol or drug abuse patient.Premier HealthIn the event this information is protected by the Federal Confidentiality of Alcohol and Drug Abuse Patient Records regulations: The Federal rules restrict any use of the information to criminally investigate or prosecute any alcohol or drug abuse patient.Prem[facility] HealthIn the event this information is protected by the Federal Confidentiality of Alcohol and Drug Abuse Patient Records regulations: The Federal rules restrict any use of the information to criminally investigate or prosecute any alcohol or drug abuse patient.Prem[facility] HealthIn the event this information is protected by the Federal Confidentiality of Alcohol and Drug Abuse Patient Records regulations: The Federal rules restrict any use of the information to criminally investigate or prosecute any alcohol or drug abuse patient.Premier HealthIn the event this information is protected by the Federal Confidentiality of Alcohol and Drug Abuse Patient Records regulations: The Federal rules restrict any use of the information to criminally investigate or prosecute any alcohol or drug abuse patient.Prem[facility] HealthIn the event this information is protected by the Federal Confidentiality of Alcohol and Drug Abuse Patient Records regulations: The Federal rules restrict any use of the information to criminally investigate or prosecute any alcohol or drug abuse patient.Prem[facility] HealthIn the event this information is protected by the Federal Confidentiality of Alcohol and Drug Abuse Patient Records regulations: The Federal rules restrict any use of the information to criminally investigate or prosecute any alcohol or drug abuse patient.Prem[facility] HealthIn the event this information is protected by the Federal Confidentiality of Alcohol and Drug Abuse Patient Records regulations: The Federal rules restrict any use of the information to criminally investigate or prosecute any alcohol or drug abuse patient.Prem[facility] HealthIn the event this information is protected by the Federal Confidentiality of Alcohol and Drug Abuse Patient Records regulations: The Federal rules restrict any use of the information to criminally investigate or prosecute any alcohol or drug abuse patient.Prem[facility] HealthIn the event this information is protected by the Federal Confidentiality of Alcohol and Drug Abuse Patient Records regulations: The Federal rules restrict any use of the information to criminally investigate or prosecute any alcohol or drug abuse patient.Prem[facility] HealthIn the event this information is protected by the Federal Confidentiality of Alcohol and Drug Abuse Patient Records regulations: The Federal rules restrict any use of the information to criminally investigate or prosecute any alcohol or drug abuse patient.Prem[facility] HealthIn the event this information is protected by the Federal Confidentiality of Alcohol and Drug Abuse Patient Records regulations: The Federal rules restrict any use of the information to criminally investigate or prosecute any alcohol or drug abuse patient.Prem[facility] HealthIn the event this information is protected by the Federal Confidentiality of Alcohol and Drug Abuse Patient Records regulations: The Federal rules restrict any use of the information to criminally investigate or prosecute any alcohol or drug abuse patient.Prem[facility] HealthIn the event this information is protected by the Federal Confidentiality of Alcohol and Drug Abuse Patient Records regulations: The Federal rules restrict any use of the information to criminally investigate or prosecute any alcohol or drug abuse patient.Prem[facility] HealthIn the event this information is protected by the Federal Confidentiality of Alcohol and Drug Abuse Patient Records regulations: The Federal rules restrict any use of the information to criminally investigate or prosecute any alcohol or drug abuse patient.Prem[facility] HealthIn the event this information is protected by the Federal Confidentiality of Alcohol and Drug Abuse Patient Records regulations: The Federal rules restrict any use of the information to criminally investigate or prosecute any alcohol or drug abuse patient.Prem[facility] HealthIn the event this information is protected by the Federal Confidentiality of Alcohol and Drug Abuse Patient Records regulations: The Federal rules restrict any use of the information to criminally investigate or prosecute any alcohol or drug abuse patient.Prem[facility] HealthIn the event this information is protected by the Federal Confidentiality of Alcohol and Drug Abuse Patient Records regulations: The Federal rules restrict any use of the information to criminally investigate or prosecute any alcohol or drug abuse patient.[facility] HealthIn the event this information is protected by the Federal Confidentiality of Alcohol and Drug Abuse Patient Records regulations: The Federal rules restrict any use of the information to criminally investigate or prosecute any alcohol or drug abuse patient.Prem[facility] HealthIn the event this information is protected by the Federal Confidentiality of Alcohol and Drug Abuse Patient Records regulations: The Federal rules restrict any use of the information to criminally investigate or prosecute any alcohol or drug abuse patient.Prem[facility] HealthIn the event this information is protected by the Federal Confidentiality of Alcohol and Drug Abuse Patient Records regulations: The Federal rules restrict any use of the information to criminally investigate or prosecute any alcohol or drug abuse patient.Prem[facility] HealthIn the event this information is protected by the Federal Confidentiality of Alcohol and Drug Abuse Patient Records regulations: The Federal rules restrict any use of the information to criminally investigate or prosecute any alcohol or drug abuse patient.Prem[facility] HealthIn the event this information is protected by the Federal Confidentiality of Alcohol and Drug Abuse Patient Records regulations: The Federal rules restrict any use of the information to criminally investigate or prosecute any alcohol or drug abuse patient.Prem[facility] HealthIn the event this information is protected by the Federal Confidentiality of Alcohol and Drug Abuse Patient Records regulations: The Federal rules restrict any use of the information to criminally investigate or prosecute any alcohol or drug abuse patient.Premier HealthIn the event this information is protected by the Federal Confidentiality of Alcohol and Drug Abuse Patient Records regulations: The Federal rules restrict any use of the information to criminally investigate or prosecute any alcohol or drug abuse patient.Premier HealthIn the event this information is protected by the Federal Confidentiality of Alcohol and Drug Abuse Patient Records regulations: The Federal rules restrict any use of the information to criminally investigate or prosecute any alcohol or drug abuse patient.Premier HealthIn the event this information is protected by the Federal Confidentiality of Alcohol and Drug Abuse Patient Records regulations: The Federal rules restrict any use of the information to criminally investigate or prosecute any alcohol or drug abuse patient.Premier HealthIn the event this information is protected by the Federal Confidentiality of Alcohol and Drug Abuse Patient Records regulations: The Federal rules restrict any use of the information to criminally investigate or prosecute any alcohol or drug abuse patient.Prem[facility] HealthIn the event this information is protected by the Federal Confidentiality of Alcohol and Drug Abuse Patient Records regulations: The Federal rules restrict any use of the information to criminally investigate or prosecute any alcohol or drug abuse patient.Premier HealthIn the event this information is protected by the Federal Confidentiality of Alcohol and Drug Abuse Patient Records regulations: The Federal rules restrict any use of the information to criminally investigate or prosecute any alcohol or drug abuse patient.Prem[facility] HealthIn the event this information is protected by the Federal Confidentiality of Alcohol and Drug Abuse Patient Records regulations: The Federal rules restrict any use of the information to criminally investigate or prosecute any alcohol or drug abuse patient.Premier HealthIn the event this information is protected by the Federal Confidentiality of Alcohol and Drug Abuse Patient Records regulations: The Federal rules restrict any use of the information to criminally investigate or prosecute any alcohol or drug abuse patient.Prem[facility] HealthIn the event this information is protected by the Federal Confidentiality of Alcohol and Drug Abuse Patient Records regulations: The Federal rules restrict any use of the information to criminally investigate or prosecute any alcohol or drug abuse patient.Prem[facility] HealthIn the event this information is protected by the Federal Confidentiality of Alcohol and Drug Abuse Patient Records regulations: The Federal rules restrict any use of the information to criminally investigate or prosecute any alcohol or drug abuse patient.Prem[facility] HealthIn the event this information is protected by the Federal Confidentiality of Alcohol and Drug Abuse Patient Records regulations: The Federal rules restrict any use of the information to criminally investigate or prosecute any alcohol or drug abuse patient.Prem[facility] HealthIn the event this information is protected by the Federal Confidentiality of Alcohol and Drug Abuse Patient Records regulations: The Federal rules restrict any use of the information to criminally investigate or prosecute any alcohol or drug abuse patient.Prem[facility] HealthIn the event this information is protected by the Federal Confidentiality of Alcohol and Drug Abuse Patient Records regulations: The Federal rules restrict any use of the information to criminally investigate or prosecute any alcohol or drug abuse patient.Premier HealthIn the event this information is protected by the Federal Confidentiality of Alcohol and Drug Abuse Patient Records regulations: The Federal rules restrict any use of the information to criminally investigate or prosecute any alcohol or drug abuse patient.Premier HealthIn the event this information is protected by the Federal Confidentiality of Alcohol and Drug Abuse Patient Records regulations: The Federal rules restrict any use of the information to criminally investigate or prosecute any alcohol or drug abuse patient.Prem[facility] HealthIn the event this information is protected by the Federal Confidentiality of Alcohol and Drug Abuse Patient Records regulations: The Federal rules restrict any use of the information to criminally investigate or prosecute any alcohol or drug abuse patient.Premier HealthIn the event this information is protected by the Federal Confidentiality of Alcohol and Drug Abuse Patient Records regulations: The Federal rules restrict any use of the information to criminally investigate or prosecute any alcohol or drug abuse patient.Prem[facility] HealthIn the event this information is protected by the Federal Confidentiality of Alcohol and Drug Abuse Patient Records regulations: The Federal rules restrict any use of the information to criminally investigate or prosecute any alcohol or drug abuse patient.Premier HealthIn the event this information is protected by the Federal Confidentiality of Alcohol and Drug Abuse Patient Records regulations: The Federal rules restrict any use of the information to criminally investigate or prosecute any alcohol or drug abuse patient.Prem[facility] HealthIn the event this information is protected by the Federal Confidentiality of Alcohol and Drug Abuse Patient Records regulations: The Federal rules restrict any use of the information to criminally investigate or prosecute any alcohol or drug abuse patient.Premier HealthIn the event this information is protected by the Federal Confidentiality of Alcohol and Drug Abuse Patient Records regulations: The Federal rules restrict any use of the information to criminally investigate or prosecute any alcohol or drug abuse patient.Premier HealthIn the event this information is protected by the Federal Confidentiality of Alcohol and Drug Abuse Patient Records regulations: The Federal rules restrict any use of the information to criminally investigate or prosecute any alcohol or drug abuse patient.Premier HealthIn the event this information is protected by the Federal Confidentiality of Alcohol and Drug Abuse Patient Records regulations: The Federal rules restrict any use of the information to criminally investigate or prosecute any alcohol or drug abuse patient.Prem[facility] HealthIn the event this information is protected by the Federal Confidentiality of Alcohol and Drug Abuse Patient Records regulations: The Federal rules restrict any use of the information to criminally investigate or prosecute any alcohol or drug abuse patient.Premier HealthIn the event this information is protected by the Federal Confidentiality of Alcohol and Drug Abuse Patient Records regulations: The Federal rules restrict any use of the information to criminally investigate or prosecute any alcohol or drug abuse patient.Premier HealthIn the event this information is protected by the Federal Confidentiality of Alcohol and Drug Abuse Patient Records regulations: The Federal rules restrict any use of the information to criminally investigate or prosecute any alcohol or drug abuse patient.Premier HealthIn the event this information is protected by the Federal Confidentiality of Alcohol and Drug Abuse Patient Records regulations: The Federal rules restrict any use of the information to criminally investigate or prosecute any alcohol or drug abuse patient.Premier HealthIn the event this information is protected by the Federal Confidentiality of Alcohol and Drug Abuse Patient Records regulations: The Federal rules restrict any use of the information to criminally investigate or prosecute any alcohol or drug abuse patient.Premier HealthIn the event this information is protected by the Federal Confidentiality of Alcohol and Drug Abuse Patient Records regulations: The Federal rules restrict any use of the information to criminally investigate or prosecute any alcohol or drug abuse patient.Premier HealthIn the event this information is protected by the Federal Confidentiality of Alcohol and Drug Abuse Patient Records regulations: The Federal rules restrict any use of the information to criminally investigate or prosecute any alcohol or drug abuse patient.Premier HealthIn the event this information is protected by the Federal Confidentiality of Alcohol and Drug Abuse Patient Records regulations: The Federal rules restrict any use of the information to criminally investigate or prosecute any alcohol or drug abuse patient.Premier HealthIn the event this information is protected by the Federal Confidentiality of Alcohol and Drug Abuse Patient Records regulations: The Federal rules restrict any use of the information to criminally investigate or prosecute any alcohol or drug abuse patient.Premier HealthIn the event this information is protected by the Federal Confidentiality of Alcohol and Drug Abuse Patient Records regulations: The Federal rules restrict any use of the information to criminally investigate or prosecute any alcohol or drug abuse patient.Premier HealthIn the event this information is protected by the Federal Confidentiality of Alcohol and Drug Abuse Patient Records regulations: The Federal rules restrict any use of the information to criminally investigate or prosecute any alcohol or drug abuse patient.Premier HealthIn the event this information is protected by the Federal Confidentiality of Alcohol and Drug Abuse Patient Records regulations: The Federal rules restrict any use of the information to criminally investigate or prosecute any alcohol or drug abuse patient.Premier HealthIn the event this information is protected by the Federal Confidentiality of Alcohol and Drug Abuse Patient Records regulations: The Federal rules restrict any use of the information to criminally investigate or prosecute any alcohol or drug abuse patient.[facility] HealthIn the event this information is protected by the Federal Confidentiality of Alcohol and Drug Abuse Patient Records regulations: The Federal rules restrict any use of the information to criminally investigate or prosecute any alcohol or drug abuse patient.[facility] HealthIn the event this information is protected by the Federal Confidentiality of Alcohol and Drug Abuse Patient Records regulations: The Federal rules restrict any use of the information to criminally investigate or prosecute any alcohol or drug abuse patient.[facility] HealthIn the event this information is protected by the Federal Confidentiality of Alcohol and Drug Abuse Patient Records regulations: The Federal rules restrict any use of the information to criminally investigate or prosecute any alcohol or drug abuse patient.[facility] HealthIn the event this information is protected by the Federal Confidentiality of Alcohol and Drug Abuse Patient Records regulations: The Federal rules restrict any use of the information to criminally investigate or prosecute any alcohol or drug abuse patient.[facility] HealthIn the event this information is protected by the Federal Confidentiality of Alcohol and Drug Abuse Patient Records regulations: The Federal rules restrict any use of the information to criminally investigate or prosecute any alcohol or drug abuse patient.[facility] HealthIn the event this information is protected by the Federal Confidentiality of Alcohol and Drug Abuse Patient Records regulations: The Federal rules restrict any use of the information to criminally investigate or prosecute any alcohol or drug abuse patient.[facility] HealthIn the event this information is protected by the Federal Confidentiality of Alcohol and Drug Abuse Patient Records regulations: The Federal rules restrict any use of the information to criminally investigate or prosecute any alcohol or drug abuse patient.[facility] HealthIn the event this information is protected by the Federal Confidentiality of Alcohol and Drug Abuse Patient Records regulations: The Federal rules restrict any use of the information to criminally investigate or prosecute any alcohol or drug abuse patient.[facility] HealthIn the event this information is protected by the Federal Confidentiality of Alcohol and Drug Abuse Patient Records regulations: The Federal rules restrict any use of the information to criminally investigate or prosecute any alcohol or drug abuse patient.[facility] HealthIn the event this information is protected by the Federal Confidentiality of Alcohol and Drug Abuse Patient Records regulations: The Federal rules restrict any use of the information to criminally investigate or prosecute any alcohol or drug abuse patient.[facility] HealthIn the event this information is protected by the Federal Confidentiality of Alcohol and Drug Abuse Patient Records regulations: The Federal rules restrict any use of the information to criminally investigate or prosecute any alcohol or drug abuse patient.[facility] HealthIn the event this information is protected by the Federal Confidentiality of Alcohol and Drug Abuse Patient Records regulations: The Federal rules restrict any use of the information to criminally investigate or prosecute any alcohol or drug abuse patient.[facility] HealthIn the event this information is protected by the Federal Confidentiality of Alcohol and Drug Abuse Patient Records regulations: The Federal rules restrict any use of the information to criminally investigate or prosecute any alcohol or drug abuse patient.[facility] HealthIn the event this information is protected by the Federal Confidentiality of Alcohol and Drug Abuse Patient Records regulations: The Federal rules restrict any use of the information to criminally investigate or prosecute any alcohol or drug abuse patient.[facility] HealthIn the event this information is protected by the Federal Confidentiality of Alcohol and Drug Abuse Patient Records regulations: The Federal rules restrict any use of the information to criminally investigate or prosecute any alcohol or drug abuse patient.[facility] HealthIn the event this information is protected by the Federal Confidentiality of Alcohol and Drug Abuse Patient Records regulations: The Federal rules restrict any use of the information to criminally investigate or prosecute any alcohol or drug abuse patient.[facility] HealthIn the event this information is protected by the Federal Confidentiality of Alcohol and Drug Abuse Patient Records regulations: The Federal rules restrict any use of the information to criminally investigate or prosecute any alcohol or drug abuse patient.[facility] HealthIn the event this information is protected by the Federal Confidentiality of Alcohol and Drug Abuse Patient Records regulations: The Federal rules restrict any use of the information to criminally investigate or prosecute any alcohol or drug abuse patient.[facility] HealthIn the event this information is protected by the Federal Confidentiality of Alcohol and Drug Abuse Patient Records regulations: The Federal rules restrict any use of the information to criminally investigate or prosecute any alcohol or drug abuse patient.[facility] HealthIn the event this information is protected by the Federal Confidentiality of Alcohol and Drug Abuse Patient Records regulations: The Federal rules restrict any use of the information to criminally investigate or prosecute any alcohol or drug abuse patient.[facility] HealthIn the event this information is protected by the Federal Confidentiality of Alcohol and Drug Abuse Patient Records regulations: The Federal rules restrict any use of the information to criminally investigate or prosecute any alcohol or drug abuse patient.[facility] HealthIn the event this information is protected by the Federal Confidentiality of Alcohol and Drug Abuse Patient Records regulations: The Federal rules restrict any use of the information to criminally investigate or prosecute any alcohol or drug abuse patient.[facility] HealthIn the event this information is protected by the Federal Confidentiality of Alcohol and Drug Abuse Patient Records regulations: The Federal rules restrict any use of the information to criminally investigate or prosecute any alcohol or drug abuse patient.[facility] HealthIn the event this information is protected by the Federal Confidentiality of Alcohol and Drug Abuse Patient Records regulations: The Federal rules restrict any use of the information to criminally investigate or prosecute any alcohol or drug abuse patient.[facility] HealthIn the event this information is protected by the Federal Confidentiality of Alcohol and Drug Abuse Patient Records regulations: The Federal rules restrict any use of the information to criminally investigate or prosecute any alcohol or drug abuse patient.[facility] HealthIn the event this information is protected by the Federal Confidentiality of Alcohol and Drug Abuse Patient Records regulations: The Federal rules restrict any use of the information to criminally investigate or prosecute any alcohol or drug abuse patient.[facility] HealthIn the event this information is protected by the Federal Confidentiality of Alcohol and Drug Abuse Patient Records regulations: The Federal rules restrict any use of the information to criminally investigate or prosecute any alcohol or drug abuse patient.[facility] HealthIn the event this information is protected by the Federal Confidentiality of Alcohol and Drug Abuse Patient Records regulations: The Federal rules restrict any use of the information to criminally investigate or prosecute any alcohol or drug abuse patient.[facility] HealthIn the event this information is protected by the Federal Confidentiality of Alcohol and Drug Abuse Patient Records regulations: The Federal rules restrict any use of the information to criminally investigate or prosecute any alcohol or drug abuse patient.[facility] HealthIn the event this information is protected by the Federal Confidentiality of Alcohol and Drug Abuse Patient Records regulations: The Federal rules restrict any use of the information to criminally investigate or prosecute any alcohol or drug abuse patient.[facility] HealthIn the event this information is protected by the Federal Confidentiality of Alcohol and Drug Abuse Patient Records regulations: The Federal rules restrict any use of the information to criminally investigate or prosecute any alcohol or drug abuse patient.[facility] HealthIn the event this information is protected by the Federal Confidentiality of Alcohol and Drug Abuse Patient Records regulations: The Federal rules restrict any use of the information to criminally investigate or prosecute any alcohol or drug abuse patient.[facility] HealthIn the event this information is protected by the Federal Confidentiality of Alcohol and Drug Abuse Patient Records regulations: The Federal rules restrict any use of the information to criminally investigate or prosecute any alcohol or drug abuse patient.[facility] HealthIn the event this information is protected by the Federal Confidentiality of Alcohol and Drug Abuse Patient Records regulations: The Federal rules restrict any use of the information to criminally investigate or prosecute any alcohol or drug abuse patient.[facility] HealthIn the event this information is protected by the Federal Confidentiality of Alcohol and Drug Abuse Patient Records regulations: The Federal rules restrict any use of the information to criminally investigate or prosecute any alcohol or drug abuse patient.[facility] HealthIn the event this information is protected by the Federal Confidentiality of Alcohol and Drug Abuse Patient Records regulations: The Federal rules restrict any use of the information to criminally investigate or prosecute any alcohol or drug abuse patient.[facility] HealthIn the event this information is protected by the Federal Confidentiality of Alcohol and Drug Abuse Patient Records regulations: The Federal rules restrict any use of the information to criminally investigate or prosecute any alcohol or drug abuse patient.[facility] HealthIn the event this information is protected by the Federal Confidentiality of Alcohol and Drug Abuse Patient Records regulations: The Federal rules restrict any use of the information to criminally investigate or prosecute any alcohol or drug abuse patient.[facility] HealthIn the event this information is protected by the Federal Confidentiality of Alcohol and Drug Abuse Patient Records regulations: The Federal rules restrict any use of the information to criminally investigate or prosecute any alcohol or drug abuse patient.[facility] HealthIn the event this information is protected by the Federal Confidentiality of Alcohol and Drug Abuse Patient Records regulations: The Federal rules restrict any use of the information to criminally investigate or prosecute any alcohol or drug abuse patient.[facility] HealthIn the event this information is protected by the Federal Confidentiality of Alcohol and Drug Abuse Patient Records regulations: The Federal rules restrict any use of the information to criminally investigate or prosecute any alcohol or drug abuse patient.[facility] HealthIn the event this information is protected by the Federal Confidentiality of Alcohol and Drug Abuse Patient Records regulations: The Federal rules restrict any use of the information to criminally investigate or prosecute any alcohol or drug abuse patient.[facility] HealthIn the event this information is protected by the Federal Confidentiality of Alcohol and Drug Abuse Patient Records regulations: The Federal rules restrict any use of the information to criminally investigate or prosecute any alcohol or drug abuse patient.[facility] HealthIn the event this information is protected by the Federal Confidentiality of Alcohol and Drug Abuse Patient Records regulations: The Federal rules restrict any use of the information to criminally investigate or prosecute any alcohol or drug abuse patient.[facility] HealthIn the event this information is protected by the Federal Confidentiality of Alcohol and Drug Abuse Patient Records regulations: The Federal rules restrict any use of the information to criminally investigate or prosecute any alcohol or drug abuse patient.[facility] HealthIn the event this information is protected by the Federal Confidentiality of Alcohol and Drug Abuse Patient Records regulations: The Federal rules restrict any use of the information to criminally investigate or prosecute any alcohol or drug abuse patient.[facility] HealthIn the event this information is protected by the Federal Confidentiality of Alcohol and Drug Abuse Patient Records regulations: The Federal rules restrict any use of the information to criminally investigate or prosecute any alcohol or drug abuse patient.[facility] HealthIn the event this information is protected by the Federal Confidentiality of Alcohol and Drug Abuse Patient Records regulations: The Federal rules restrict any use of the information to criminally investigate or prosecute any alcohol or drug abuse patient.[facility] HealthIn the event this information is protected by the Federal Confidentiality of Alcohol and Drug Abuse Patient Records regulations: The Federal rules restrict any use of the information to criminally investigate or prosecute any alcohol or drug abuse patient.[facility] HealthIn the event this information is protected by the Federal Confidentiality of Alcohol and Drug Abuse Patient Records regulations: The Federal rules restrict any use of the information to criminally investigate or prosecute any alcohol or drug abuse patient.[facility] HealthIn the event this information is protected by the Federal Confidentiality of Alcohol and Drug Abuse Patient Records regulations: The Federal rules restrict any use of the information to criminally investigate or prosecute any alcohol or drug abuse patient.[facility] HealthIn the event this information is protected by the Federal Confidentiality of Alcohol and Drug Abuse Patient Records regulations: The Federal rules restrict any use of the information to criminally investigate or prosecute any alcohol or drug abuse patient.[facility] HealthIn the event this information is protected by the Federal Confidentiality of Alcohol and Drug Abuse Patient Records regulations: The Federal rules restrict any use of the information to criminally investigate or prosecute any alcohol or drug abuse patient.[facility] HealthIn the event this information is protected by the Federal Confidentiality of Alcohol and Drug Abuse Patient Records regulations: The Federal rules restrict any use of the information to criminally investigate or prosecute any alcohol or drug abuse patient.[facility] HealthIn the event this information is protected by the Federal Confidentiality of Alcohol and Drug Abuse Patient Records regulations: The Federal rules restrict any use of the information to criminally investigate or prosecute any alcohol or drug abuse patient.[facility] HealthIn the event this information is protected by the Federal Confidentiality of Alcohol and Drug Abuse Patient Records regulations: The Federal rules restrict any use of the information to criminally investigate or prosecute any alcohol or drug abuse patient.[facility] HealthIn the event this information is protected by the Federal Confidentiality of Alcohol and Drug Abuse Patient Records regulations: The Federal rules restrict any use of the information to criminally investigate or prosecute any alcohol or drug abuse patient.[facility] HealthIn the event this information is protected by the Federal Confidentiality of Alcohol and Drug Abuse Patient Records regulations: The Federal rules restrict any use of the information to criminally investigate or prosecute any alcohol or drug abuse patient.[facility] HealthIn the event this information is protected by the Federal Confidentiality of Alcohol and Drug Abuse Patient Records regulations: The Federal rules restrict any use of the information to criminally investigate or prosecute any alcohol or drug abuse patient.[facility] HealthIn the event this information is protected by the Federal Confidentiality of Alcohol and Drug Abuse Patient Records regulations: The Federal rules restrict any use of the information to criminally investigate or prosecute any alcohol or drug abuse patient.[facility] HealthIn the event this information is protected by the Federal Confidentiality of Alcohol and Drug Abuse Patient Records regulations: The Federal rules restrict any use of the information to criminally investigate or prosecute any alcohol or drug abuse patient.[facility] HealthIn the event this information is protected by the Federal Confidentiality of Alcohol and Drug Abuse Patient Records regulations: The Federal rules restrict any use of the information to criminally investigate or prosecute any alcohol or drug abuse patient.[facility] HealthIn the event this information is protected by the Federal Confidentiality of Alcohol and Drug Abuse Patient Records regulations: The Federal rules restrict any use of the information to criminally investigate or prosecute any alcohol or drug abuse patient.[facility] HealthIn the event this information is protected by the Federal Confidentiality of Alcohol and Drug Abuse Patient Records regulations: The Federal rules restrict any use of the information to criminally investigate or prosecute any alcohol or drug abuse patient.[facility] HealthIn the event this information is protected by the Federal Confidentiality of Alcohol and Drug Abuse Patient Records regulations: The Federal rules restrict any use of the information to criminally investigate or prosecute any alcohol or drug abuse patient.[facility] HealthIn the event this information is protected by the Federal Confidentiality of Alcohol and Drug Abuse Patient Records regulations: The Federal rules restrict any use of the information to criminally investigate or prosecute any alcohol or drug abuse patient.[facility] HealthIn the event this information is protected by the Federal Confidentiality of Alcohol and Drug Abuse Patient Records regulations: The Federal rules restrict any use of the information to criminally investigate or prosecute any alcohol or drug abuse patient.[facility] HealthIn the event this information is protected by the Federal Confidentiality of Alcohol and Drug Abuse Patient Records regulations: The Federal rules restrict any use of the information to criminally investigate or prosecute any alcohol or drug abuse patient.[facility] HealthIn the event this information is protected by the Federal Confidentiality of Alcohol and Drug Abuse Patient Records regulations: The Federal rules restrict any use of the information to criminally investigate or prosecute any alcohol or drug abuse patient.[facility] HealthIn the event this information is protected by the Federal Confidentiality of Alcohol and Drug Abuse Patient Records regulations: The Federal rules restrict any use of the information to criminally investigate or prosecute any alcohol or drug abuse patient.[facility] HealthIn the event this information is protected by the Federal Confidentiality of Alcohol and Drug Abuse Patient Records regulations: The Federal rules restrict any use of the information to criminally investigate or prosecute any alcohol or drug abuse patient.[facility] HealthIn the event this information is protected by the Federal Confidentiality of Alcohol and Drug Abuse Patient Records regulations: The Federal rules restrict any use of the information to criminally investigate or prosecute any alcohol or drug abuse patient.[facility] HealthIn the event this information is protected by the Federal Confidentiality of Alcohol and Drug Abuse Patient Records regulations: The Federal rules restrict any use of the information to criminally investigate or prosecute any alcohol or drug abuse patient.[facility] HealthIn the event this information is protected by the Federal Confidentiality of Alcohol and Drug Abuse Patient Records regulations: The Federal rules restrict any use of the information to criminally investigate or prosecute any alcohol or drug abuse patient.[facility] HealthIn the event this information is protected by the Federal Confidentiality of Alcohol and Drug Abuse Patient Records regulations: The Federal rules restrict any use of the information to criminally investigate or prosecute any alcohol or drug abuse patient.[facility] HealthIn the event this information is protected by the Federal Confidentiality of Alcohol and Drug Abuse Patient Records regulations: The Federal rules restrict any use of the information to criminally investigate or prosecute any alcohol or drug abuse patient.[facility] HealthIn the event this information is protected by the Federal Confidentiality of Alcohol and Drug Abuse Patient Records regulations: The Federal rules restrict any use of the information to criminally investigate or prosecute any alcohol or drug abuse patient.[facility] HealthIn the event this information is protected by the Federal Confidentiality of Alcohol and Drug Abuse Patient Records regulations: The Federal rules restrict any use of the information to criminally investigate or prosecute any alcohol or drug abuse patient.[facility] HealthIn the event this information is protected by the Federal Confidentiality of Alcohol and Drug Abuse Patient Records regulations: The Federal rules restrict any use of the information to criminally investigate or prosecute any alcohol or drug abuse patient.[facility] Reason for Visit (unrecogniz ed section and content) Reason Comments Radiology CT Specialty Diagnoses / Procedures Referred By Adele t Referred To Contact CT IMAGING Diagnoses Gross hematuria Procedures CT FLANK WO IVCON CT ABD & PELVIS W/O CONTRAST Maldonado Raza MD [address] [place] [address] Ct Imaging Referral ID Status Reason Start Date Expiration Date V isits Requested Visits Authorized [id number] Closed Auto-Generate d Referral 11/26/2021 12/26/2022 1 1 Reason Onset Date Comments Comunity Monitoring Outreach 12/10/2021 ESR D Telephonic CDM Outreach Reason Comments Orders Reason Comments Results Reason Comments Consult Specialty Diagnoses / Procedures Referred By Contac t Referred To Contact Urology Diagnoses Acute left flank pain Gross hematuria Procedures CONSULT TO UROLOGY OFFICE/OUTPATIENT NEW HIGH MDM 60-74 MINUTES Maldonado Raza MD [address] [place] [address] Referral ID Status Reason Start Date Expiration Date V isits Requested Visits Authorized [id number] Closed PCP Requested Referral 11/26/2021 11/26/2022 1 [...] or kidney infection - was seen in [facility] ER yesterday Reason Comments Consult COLONOSCOPY [...] SOB Pre op EKG possible inferior STEMI, medical practice manager dr. Barros was called and said no STEMI . And the EKG changes related to fluid overload. BMP K 6.2 . Procedure was canceled , nephrology will be called for HD Reason Comments Schedule Surgery Reason Onset Date Comments Transition Of Care 06/22/2023 TCM initial [facility] discharge 06/21/23 Reason Comments Pseudophakia Left eye, Complicati ons Reason Comments patient outreach Reason Comments Transition Of Care Reason Onset Date Comments Community Monitoring Outreach 07/28/2023 Specialty Diagnoses / Procedures Referred By Contac t Referred To Contact Cardiology Diagnoses Encounter for other preprocedural examination Procedures Transthoracic Echo (TTE) Complete ME ECHO TRANSTHORC R-T 2D W/WO M-MODE REC F-UP/LMTD ME DOP ECHOCARD COLOR FLOW VELOCITY MAPPING ME DOP ECHOCARD PULSE WAVE W/SPECTRAL F-UP/[place] [id number] [address] Department [place] [address] Referral ID Status Reason Start Date Expiration Date Visits Requested Visits Authorized [id number] Authorized Perform Procedure 3 08/18/2024 1 1 Specialty Diagnoses / Procedures Referred By Contac t Referred To Contact Radiology Diagnoses Encounter for other preprocedural examination Procedures Nuclear Stress Test CHG MYOCARDIAL SPECT MULTIPLE STUDIES CHG MYOCARDIAL SPECT SINGLE STUDY AT REST OR STRESS ME CV STRS TST XERS&/OR RX CONT ECG W/O I&R ME CV STRS TST XERS&/OR RX CONT ECG I&R ONLY ME CV STRS TST XERS&/OR RX CONT ECG TRCG ONLY ME CV STRS TST XERS&/OR RX CONT ECG W/[place] [address] [address] [place] [address] Referral ID Status Reason Start Date Expiration Date V isits Requested Visits Authorized [id number] Authorized 06/02/2023 11/29/2023 5 5 Reason Onset [...] EKG. Specialty Diagnoses / Procedures Referred By Contac t Referred To Contact Cardiology Diagnoses ASCVD (arteriosclerotic cardiovascular disease) Abnormal EKG Procedures CONSULT TO CARDIOLOGY OFFICE/OUTPATIENT NEW HIGH MDM 60 MINUTES Maldonado Raza MD [address] [place] [address] Referral ID Status Reason Start Date Expiration Date V isits Requested Visits Authorized [id number] Closed PCP Requested Referral 09/14/2023 09/13/2024 1 1 Reason Onset Date Comments DAVITA 12/11/2023 Reason Onset Date Comments Community Monitoirng Outreach 12/11/2023 Reason Onset Date Comments Refill [...] Date Comments Population Health Navigation Outreach 04/10/2024 [facility] VANESSA ROGER Reason Comments Consult Reason Onset Date Comments Community Monitoring Outreach 04/24/2024 Reason Comments Patient Education Reason Comments Established Patient Reason Onset Date Comments Refill Request 05/10/2024 Reason Onset Date Comments DAVITA 05/13/2024 Reason Onset Date Comments CDM 05/22/2024 [facility] Monito ring Outreach Call Reason Comments Established Patient Follow-Up 6 month fo llow up, hx of ASCVD Reason Comments Medicare Wellness Exam F/U 3 Month Reason Onset Date Comments CD 06/25/2024 [facility] Outreach Call Reason Onset Date Comments CD 07/02/2024 [facility] Outreach Call Reason Comments Post Op Reason Onset Date Comments CD 07/30/2024 [facility] Monito ring Outreach Call Reason Onset Date Comments [facility] 07/31/2024 [facility] Monito ring Outreach Call Reason Onset Date Comments [facility] 08/15/2024 [facility] Monito ring Outreach Call Specialty Diagnoses / Procedures Referred By Adele nogueira Referred To Contact Radiology Diagnoses Pre-transplant evaluation for kidney transplant Coronary artery disease involving [place] heart without angina pectoris, unspecified vessel or lesion type Procedures Nuclear Stress Test CHG MYOCARDIAL [place] [address] [address] Department [place] [address] [facility] [id number] [place] [address] Referral ID Status Reason Start Date Expiration Date V isits Requested Visits Authorized [id number] Authorized 03/20/2024 03/20/2025 5 5 Specialty Diagnoses / Procedures Referred By Adele nogueira Referred To Contact Radiology Diagnoses Pre-transplant evaluation for kidney transplant Procedures CT abdomen [place] [address] [address] Department [place] [address] [facility] [id number] [place] [address] Referral ID Status Reason Start Date Expiration Date Visits Requested Visits Authorized [id number] Authorized Perform Procedure 03/20/2024 03/20/2025 1 1 [...] Care Teams (unrecognized sec tion and content) Library Technical Assistant Relationship Specialty Start Date End Date Maldonado Raza MD [address] [facility] [place] [address] PCP - General Internal Medicine 03/27/12 [facility] [address] [facility] [place] [address] Pharmacist Pharmacy 07/30/19 Santosh Landa, photocopier technicianCable Maker Internal Medicine 11/25/21 Library Technical Assistant Relationship Specialty Start Date End Date Maldonado Raza MD [address] [facility] [place] [address] PCP - General Internal Medicine 03/27/12 [facility] [address] [facility] [place] [address] Pharmacist Pharmacy 07/30/19 Santosh Landa RN [facility] Internal [facility] 11/25/21 Library Technical Assistant Relationship Specialty Start Date End Date Maldonado Raza MD [address] [facility] [place] [address] PCP - General Internal Medicine 03/27/12 [facility] [address] [facility] [place] [address] Pharmacist Pharmacy 07/30/19 Santosh Landa RN [facility] Internal [facility] 11/25/21 Library Technical Assistant Relationship Specialty Start Date End Date Maldonado Raza MD [address] [facility] [place] [address] PCP - General Internal Medicine 03/27/12 [facility] [address] [facility] [place] [address] Pharmacist Pharmacy 07/30/19 Santosh Landa, photocopier technicianCable Maker Internal Medicine 11/25/21 Library Technical Assistant Relationship Specialty Start Date End Date Maldonado Raza MD [address] [facility] [place] [address] PCP - General Internal Medicine 03/27/12 [facility] [address] [facility] [place] [address] Pharmacist Pharmacy 07/30/19 Santosh Landa, photocopier technicianCable Maker Internal Medicine 11/25/21 Library Technical Assistant Relationship Specialty Start Date End Date Maldonado Raza MD [address] [facility] [place] [address] PCP - General Internal Medicine 03/27/12 [facility] [address] [facility] [place] [address] Pharmacist Pharmacy 07/30/19 Santosh Landa photocopier technicianCable Maker Internal Medicine 11/25/21 Library Technical Assistant Relationship Specialty Start Date End Date Maldonado Raza MD [address] [facility] [place] [address] PCP - General Internal Medicine 03/27/12 [facility] [address] [facility] [place] [address] Pharmacist Pharmacy 07/30/19 Santosh Landa photocopier technicianCable Maker Internal Medicine 11/25/21 Library Technical Assistant Relationship Specialty Start Date End Date Maldonado Raza MD [address] [facility] [place] [address] PCP - General Internal Medicine 03/27/12 [facility] [address] [facility] [place] [address] Pharmacist Pharmacy 07/30/19 Santosh Landa, photocopier technicianCable Maker Internal Medicine 11/25/21 Library Technical Assistant Relationship Specialty Start Date End Date Maldonado Raza MD [address] [place] [address] PCP - General Internal Medicine 03/27/12 [facility] [address] [place] [address] Pharmacist Pharmacy 07/30/19 Santosh Landa, photocopier technicianCable Maker Internal Medicine 11/25/21 Library Technical Assistant Relationship Specialty Start Date End Date Maldonado Raza MD [address] [place] [address] PCP - General Internal Medicine 03/27/12 [facility] [address] [place] [address] Pharmacist Pharmacy 07/30/19 Santosh Landa, photocopier technicianCable Maker Internal Medicine 11/25/21 Library Technical Assistant Relationship Specialty Start Date End Date Maldonado Raza MD [address] [place] [address] PCP - General Internal Medicine 03/27/12 [facility] [address] [facility] [place] [address] Pharmacist Pharmacy 07/30/19 Santosh Landa, photocopier technicianCable Maker Internal Medicine 11/25/21 Library Technical Assistant Relationship Specialty Start Date End Date Maldonado Raza MD [address] [place] [address] PCP - General Internal Medicine 03/27/12 [facility] [address] [facility] [place] [address] Pharmacist Pharmacy 07/30/19 Santosh Landa, photocopier technicianCable Maker Internal Medicine 11/25/21 Library Technical Assistant Relationship Specialty Start Date End Date Maldonado Raza MD [address] [facility] [place] [address] PCP - General Internal Medicine 03/27/12 [facility] [address] [facility] [place] [address] Pharmacist Pharmacy 07/30/19 Santosh Landa, photocopier technicianCable Maker Internal Medicine 11/25/21 Library Technical Assistant Relationship Specialty Start Date End Date Maldonado Raza MD [address] [facility] [place] [address] PCP - General Internal Medicine 03/27/12 [facility] [address] [facility] [place] [address] Pharmacist Pharmacy 07/30/19 05/02/22 Santosh Landa, photocopier technicianCable Maker Internal Medicine 11/25/21 Library Technical Assistant Relationship Specialty Start Date End Date Maldonado Raza MD [address] [facility] [place] [address] PCP - General Internal Medicine 03/27/12 Santosh Landa, photocopier technicianCable Maker Internal Medicine 11/25/21 Library Technical Assistant Relationship Specialty Start Date End Date Maldonado Raza MD [address] [facility] [place] [address] PCP - General Internal Medicine 03/27/12 Santosh Landa, photocopier technicianCable Maker Internal Medicine 11/25/21 Library Technical Assistant Relationship Specialty Start Date End Date Maldonado Raza MD [address] [facility] [place] [address] PCP - General Internal Medicine 03/27/12 Santosh Landa, photocopier technicianCable Maker Internal Medicine 11/25/21 Library Technical Assistant Relationship Specialty Start Date End Date Maldonado Raza MD [address] [facility] [place] [address] PCP - General Internal Medicine 03/27/12 Santosh Landa, photocopier technicianCable Maker Internal Medicine 11/25/21 Library Technical Assistant Relationship Specialty Start Date End Date Maldonado Raza MD [address] [facility] [place] [address] PCP - General Internal Medicine 03/27/12 Santosh Landa, photocopier technicianCable Maker Internal Medicine 11/25/21 Library Technical Assistant Relationship Specialty Start Date End Date Maldonado Raza MD [address] [facility] [place] [address] PCP - General Internal Medicine 03/27/12 Santosh Landa, photocopier technicianCable Maker Internal Medicine 11/25/21 Library Technical Assistant Relationship Specialty Start Date End Date Maldonado Raza MD [address] [facility] [place] [address] PCP - General Internal Medicine 03/27/12 Santosh Landa, photocopier technicianCable Maker Internal Medicine 11/25/21 Library Technical Assistant Relationship Specialty Start Date End Date Maldonado Raza MD [address] [facility] [place] [address] PCP - General Internal Medicine 03/27/12 Santosh Landa, photocopier technicianCable Maker Internal Medicine 11/25/21 Library Technical Assistant Relationship Specialty Start Date End Date Maldonado Raza MD [address] [facility] [place] [address] PCP - General Internal Medicine 03/27/12 Syeda Frost, photocopier technicianCable Maker Internal Medicine 11/25/21 Library Technical Assistant Relationship Specialty Start Date End Date Maldonado Raza MD [address] [facility] [place] [address] PCP - General Internal Medicine 03/27/12 Syeda Frost, photocopier technicianCable Maker Internal Medicine 11/25/21 Library Technical Assistant Relationship Specialty Start Date End Date Maldonado Raza MD [address] [facility] [place] [address] PCP - General Internal Medicine 03/27/12 Syeda Frost, photocopier technicianCable Maker Internal Medicine 11/25/21 Library Technical Assistant Relationship Specialty Start Date End Date Maldonado Raza MD [address] [facility] [place] [address] PCP - General Internal Medicine 03/27/12 Syeda Frost, photocopier technicianCable Maker Internal Medicine 11/25/21 Library Technical Assistant Relationship Specialty Start Date End Date Maldonado Raza MD [address] [facility] [place] [address] PCP - General Internal Medicine 03/27/12 Syeda Frost RN Cable [facility] Internal [facility] 11/25/21 Library Technical Assistant Relationship Specialty Start Date End Date Maldonado Raza MD [address] [facility] [place] [address] PCP - General Internal Medicine 03/27/12 Syeda Frost, photocopier technicianCable Maker Internal Medicine 11/25/21 Library Technical Assistant Relationship Specialty Start Date End Date Maldonado Raza MD [address] [facility] [place] [address] PCP - General Internal Medicine 03/27/12 Syeda Frost, photocopier technicianCable Maker Internal Medicine 11/25/21 Team Status: Active Member [...] Dr. Warren Torrez , Emergency Provider Active Library Technical Assistant Relationship Specialty Start Date End Date Maldonado Raza MD [address] [facility] [place] [address] PCP - General Internal Medicine 03/27/12 Syeda Frost, photocopier technicianCable Maker Internal Medicine 11/25/21 Library Technical Assistant Relationship Specialty Start Date End Date Maldonado Raza MD [address] [facility] [place] [address] PCP - General Internal Medicine 03/27/12 Syeda Frost, photocopier technicianCable Maker Internal Medicine 11/25/21 Library Technical Assistant Relationship Specialty Start Date End Date Maldonado Raza MD [address] [facility] [place] [address] PCP - General Internal Medicine 03/27/12 Syeda Frost, photocopier technicianCable Maker Internal Medicine 11/25/21 Library Technical Assistant Relationship Specialty Start Date End Date Maldonado Raza MD [address] [facility] [place] [address] PCP - General Internal Medicine 03/27/12 Syeda Frost, photocopier technicianCable Maker Internal Medicine 11/25/21 Library Technical Assistant Relationship Specialty Start Date End Date Maldonado Raza MD [address] [facility] [place] [address] PCP - General Internal Medicine 03/27/12 Syeda Frost, photocopier technicianCable Maker Internal Medicine 11/25/21 Library Technical Assistant Relationship Specialty Start Date End Date Maldonado Raza MD [address] [facility] [place] [address] PCP - General Internal Medicine 03/27/12 Syeda Frost RN [facility] 11/25/21 Team Status: Active Member Role Status Dates Dr. Maldonado Raza MD Primary Care Provider Active Dr. Ruben Hu MD Attending Provider Active Team Status: Inactive Member Role Status Dates Dr. Maldonado Raza MD Primary Care Provider Active Dr. Byron Day MD Attending Provider, Referring James don Active Library Technical Assistant Relationship Specialty Start Date End Date Maldonado Raza MD [address] [facility] [place] [address] PCP - General Internal Medicine 03/27/12 Syeda Frost RN [facility] 11/25/21 Library Technical Assistant Relationship Specialty Start Date End Date Maldonado Raza MD [address] [facility] [place] [address] PCP - General Internal Medicine 03/27/12 Syeda Frost RN Cable Maker Internal [facility] 11/25/21 Library Technical Assistant Relationship Specialty Start Date End Date Maldonado Raza MD [address] [facility] [place] [address] PCP - General Internal Medicine 03/27/12 Syeda Frost, photocopier technicianCable Maker Internal Medicine 11/25/21 Library Technical Assistant Relationship Specialty Start Date End Date Maldonado Raza MD [address] [facility] [place] [address] PCP - General Internal Medicine 03/27/12 Syeda Frost, photocopier technicianCable Maker Internal Medicine 11/25/21 Library Technical Assistant Relationship Specialty Start Date End Date Maldonado Raza MD [address] [facility] [place] [address] PCP - General Internal Medicine 03/27/12 Syeda Frost, photocopier technicianCable Maker Internal Medicine 11/25/21 Byron Day [address] [place], [place] 3774[address] Referring Ophthalmology 05/01/23 Library Technical Assistant Relationship Specialty Start Date End Date Maldonado Raza MD [address] [place], [place] 0559[address] PCP - General Internal Medicine 03/27/12 Syeda Frost, photocopier technicianCable Maker Internal Medicine 11/25/21 Byron Day [address] [place] [address] Referring Ophthalmology 05/01/23 Library Technical Assistant Relationship Specialty Start Date End Date Maldonado Raza MD [address] [place] [address] PCP - General Internal Medicine 03/27/12 Syeda Frost, photocopier technicianCable Maker Internal Medicine 11/25/21 Byron Day [address] [place], [place] 772801 Referring Ophthalmology 05/01/23 Library Technical Assistant Relationship Specialty Start Date End Date Maldonado Raza MD [address] [place], [place] 920741 PCP - General Internal Medicine 03/27/12 Syeda Frost, photocopier technicianCable Maker Internal Medicine 11/25/21 Byron Day [address] [place] [address] Referring Ophthalmology 05/01/23 Library Technical Assistant Relationship Specialty Start Date End Date Maldonado Raza MD [address] [place] [address] PCP - General Internal Medicine 03/27/12 Syeda Frost, photocopier technicianCable Maker Internal Medicine 11/25/21 Byron Day [address] [place], [place] 605701 Referring Ophthalmology 05/01/23 Library Technical Assistant Relationship Specialty Start Date End Date Maldonado Raza MD [address] [place] [address] PCP - General Internal Medicine 03/27/12 Syeda Frost, photocopier technicianCable Maker Internal Medicine 11/25/21 Byron Day [address] [place], [place] 018451 Referring Ophthalmology 05/01/23 Library Technical Assistant Relationship Specialty Start Date End Date Maldonado Raza MD [address] [place], [place] 788161 PCP - General Internal Medicine 03/27/12 Syeda Frost, photocopier technicianCable Maker Internal Medicine 11/25/21 Byrno Day [address] [place], [place] [address]1001 Referring Ophthalmology 05/01/23 Mireya Gross, photocopier technician [employer]eder 06/22/23 07/23/[address] [place] [address] 06/22/23 Library Technical Assistant Relationship Specialty Start Date End Date Maldonado Raza MD [address] [place] [address] PCP - General Internal Medicine 03/27/12 Syeda Frost, photocopier technicianCable Maker Internal Medicine 11/25/21 Byron Day [address] [place], [place] 916111 Referring Ophthalmology 05/01/23 Mireya Gross, photocopier technician Hopper Feeder 06/22/23 07/23/[address] [address] 06/22/23 Library Technical Assistant Relationship Specialty Start Date End Date Maldonado Raza MD [address] [place] [address] PCP - General Internal Medicine 03/27/12 Syeda Frost, photocopier technicianCable Maker Internal Medicine 11/25/21 Byron Day [address] [place], [place] 614681 Referring Ophthalmology 05/01/23 Mireya Gross, photocopier technician Hopper Feeder 06/22/23 07/23/[address] [address] 06/22/23 Library Technical Assistant Relationship Specialty Start Date End Date Maldonado Raza MD [address] [place], [place] 491141 PCP - General Internal Medicine 03/27/12 Syeda Frost, photocopier technicianCable Maker Internal Medicine 11/25/21 Byron Day [address] [place], [place] 405721 Referring Ophthalmology 05/01/23 Mireya Gross, photocopier technician Hopper Feeder 06/22/23 07/23/[address] [address] 06/22/23 Library Technical Assistant Relationship Specialty Start Date End Date Maldonado Raza MD [address] [place], [place] 917431 PCP - General Internal Medicine 03/27/12 Syeda Frost, photocopier technicianCable Maker Internal Medicine 11/25/21 Byron Day [address] [place], [place] 330271 Referring Ophthalmology 05/01/23 Mireya Gross photocopier technician Hopper Feeder 06/22/23 07/23/[address] [address] 06/22/23 Library Technical Assistant Relationship Specialty Start Date End Date Maldonado Raza MD [address] [place], [place] 848001 PCP - General Internal Medicine 03/27/12 Syeda Frost photocopier technicianCable Maker Internal Medicine 11/25/21 Library Technical Assistant Relationship Specialty Start Date End Date Maldonado Raza MD [address] [place], [place] 273261 PCP - General Internal Medicine 03/27/12 Syeda Frost, photocopier technicianCable Maker Internal Medicine 11/25/21 Byron Day [address] [place], [place] 828991 Referring Ophthalmology 05/01/23 Mireya Gross, photocopier technician Hopper Feeder 06/22/23 07/23/[address] [address] 06/22/23 Library Technical Assistant Relationship Specialty Start Date End Date Maldonado Raza MD [address] [place], [place] 140291 PCP - General Internal Medicine 03/27/12 Syeda Frost, photocopier technicianCable Maker Internal Medicine 11/25/21 Byron Day [address] [place], [place] 959761 Referring Ophthalmology 05/01/23 Mireya Gross RN Primary Care Hopper Feeder 06/22/23 07/23/[address] [address] 06/22/23 Library Technical Assistant Relationship Specialty Start Date End Date Maldonado Raza MD [address] [place], [place] 923021 PCP - General Internal Medicine 03/27/12 Syeda Frost, photocopier technicianCable Maker Internal Medicine 11/25/21 Byron Day [address] [place], [place] 372961 Referring Ophthalmology 05/01/[address] [address] 06/22/23 Library Technical Assistant Relationship Specialty Start Date End Date Maldonado Raza MD [address] [place], [place] 149311 PCP - General Internal Medicine 09/19/23 Library Technical Assistant Relationship Specialty Start Date End Date Maldonado Raza MD [address] [place] [address] PCP - General Internal Medicine 03/27/12 Syeda Frost, photocopier technicianCable Maker Internal Medicine 11/25/21 Byron Day [address] [place] [address] Referring Ophthalmology 05/01/[address] [address] 06/22/23 Library Technical Assistant Relationship Specialty Start Date End Date Maldonado Raza MD [address] [place] [address] PCP - General Internal Medicine 03/27/12 Syeda Frost, photocopier technicianCable Maker Internal Medicine 11/25/21 Byron Day [address] [place] [address] Referring Ophthalmology 05/01/[address] 244524 06/22/23 Library Technical Assistant Relationship Specialty Start Date End Date Maldonado Raza MD [address] [place] [address] PCP - General Internal Medicine 03/27/12 Syeda Frost, photocopier technicianCable Maker Internal Medicine 11/25/21 Byron Day [address] [place], [place] 013321 Referring Ophthalmology 05/01/[address] 361674 06/22/23 Library Technical Assistant Relationship Specialty Start Date End Date Maldonado Raza MD [address] [place] [address] PCP - General Internal Medicine 03/27/12 Syeda Frost, photocopier technicianCable Maker Internal Medicine 11/25/21 Byron Day [address] [place] [address] Referring Ophthalmology 05/01/[address] [address] 06/22/23 Library Technical Assistant Relationship Specialty Start Date End Date Maldonado Raza MD [address] [place] [address] PCP - General Internal Medicine 03/27/12 Syeda Frost, photocopier technicianCable Maker Internal Medicine 11/25/21 Byron Day [facility] [place] [address] Referring Ophthalmology 05/01/[address] 807974 06/22/23 Library Technical Assistant Relationship Specialty Start Date End Date Maldonado Raza MD [address] [place] [address] PCP - General Internal Medicine 03/27/12 Syeda Frost, photocopier technicianCable Maker Internal Medicine 11/25/21 Byron Day [address] [place], [place] 884221 Referring Ophthalmology 05/01/[address] 364154 06/22/23 Library Technical Assistant Relationship Specialty Start Date End Date Maldonado Raza MD [address] [place] [address] PCP - General Internal Medicine 03/27/12 Syeda Frost, photocopier technicianCable Maker Internal Medicine 11/25/21 Byron Day [address] [place] [address] Referring Ophthalmology 05/01/[address] [address] 06/22/23 Library Technical Assistant Relationship Specialty Start Date End Date Maldonado Raza MD [address] [place] [address] PCP - General Internal Medicine 03/27/12 Syeda Frost, photocopier technicianCable Maker Internal Medicine 11/25/21 Byron Day [address] [place] [address] Referring Ophthalmology 05/01/[address] 464424 06/22/23 Library Technical Assistant Relationship Specialty Start Date End Date Maldonado Raza MD [address] [place] [address] PCP - General Internal Medicine 03/27/12 Syeda Frost, photocopier technicianCable Maker Internal Medicine 11/25/21 Byron Day [address] [place], [place] 773201 Referring Ophthalmology 05/01/[address] 816034 06/22/23 Library Technical Assistant Relationship Specialty Start Date End Date Maldonado Raza MD [address] [place] [address] PCP - General Internal Medicine 03/27/12 Syeda Frost, photocopier technicianCable Maker Internal Medicine 11/25/21 Byron Day [address] [place] [address] Referring Ophthalmology 05/01/[address] [address] 06/22/23 Library Technical Assistant Relationship Specialty Start Date End Date Maldonado Raza MD [address] [place] [address] PCP - General Internal Medicine 03/27/12 Syeda Frost, photocopier technicianCable Maker Internal Medicine 11/25/21 Byron Day [address] [place] [address] Referring Ophthalmology 05/01/[address] 657684 06/22/23 Library Technical Assistant Relationship Specialty Start Date End Date Maldonado Raza MD [address] [place] [address] PCP - General Internal Medicine 03/27/12 Syeda Frost, photocopier technicianCable Maker Internal Medicine 11/25/21 Byron Day [address] [place], [place] [address]2341 Referring Ophthalmology 05/01/[address] [id number] 06/22/23 Library Technical Assistant Relationship Specialty Start Date End Date Maldonado Raza MD [address] [place] [address] PCP - General Internal Medicine 03/27/12 Syeda Frost, photocopier technicianCable Maker Internal Medicine 11/25/21 Byron Day [address] [place] [address] Referring Ophthalmology 05/01/[address] [address] 06/22/23 Library Technical Assistant Relationship Specialty Start Date End Date Maldonado Raza MD [address] [place] [address] PCP - General Internal Medicine 03/27/12 Syeda Frost, photocopier technicianCable Maker Internal Medicine 11/25/21 Byron Day [facility] [place] [address] Referring Ophthalmology 05/01/[address] 914454 06/22/23 Library Technical Assistant Relationship Specialty Start Date End Date Maldonado Raza MD [address] [place] [address] PCP - General Internal Medicine 03/27/12 Byron Day [address] [place], [place] 853531 Referring Ophthalmology 05/01/23 Asuncion Rossi, photocopier technicianCable Maker 04/26/[address] [address] 06/22/23 Library Technical Assistant Relationship Specialty Start Date End Date Maldonado Raza MD [address] [place] [address] PCP - General Internal Medicine 03/27/12 Byron Day [address] [place] [address] Referring Ophthalmology 05/01/23 Asuncion Rossi, photocopier technicianCable Maker 04/26/[address] [id number] 06/22/23 Library Technical Assistant Relationship Specialty Start Date End Date Maldonado Raza MD [address] [place] [address] PCP - General Internal Medicine 03/27/12 Byron Day [address] [place] [address] Referring Ophthalmology 05/01/23 Asuncion Rossi, photocopier technicianCable Maker 04/26/[address] 483214 06/22/23 Library Technical Assistant Relationship Specialty Start Date End Date Maldonado Raza MD [address] [place] [address] PCP - General Internal Medicine 03/27/12 Byron Day [address] [place] [address] Referring Ophthalmology 05/01/23 Asuncion Rossi, photocopier technicianCable Maker 04/26/[address] [address] 06/22/23 Library Technical Assistant Relationship Specialty Start Date End Date Maldonado Raza MD [address] [place] [address] PCP - General Internal Medicine 03/27/12 Byron Day [address] [place] [address] Referring Ophthalmology 05/01/23 Asuncion Rossi, photocopier technicianCable Maker 04/26/[address] [address] 06/22/23 Library Technical Assistant Relationship Specialty Start Date End Date Maldonado Raza MD [address] [place], [place] 432221 PCP - General Internal Medicine 03/27/12 Byron Day MD [address] [place], [place] 095891 Referring Ophthalmology 05/01/23 Asuncion Rossi, photocopier technicianCable Maker 04/26/[address] [address] 06/22/23 Library Technical Assistant Relationship Specialty Start Date End Date Maldonado Raza MD [address] [place], [place] 026471 PCP - General Internal Medicine 03/27/12 Byron Day MD [address] [place], [place] 901321 Referring Ophthalmology 05/01/23 Asuncion Rossi, photocopier technicianCable Maker 04/26/[address] [address] 06/22/23 Library Technical Assistant Relationship Specialty Start Date End Date Maldonado Raza MD [address] [place] [address] PCP - General Internal Medicine 03/27/12 Syeda Frost photocopier technicianCable Maker Internal Medicine 11/25/21 04/25/24 Byron Day MD [address] [place] [address] Referring Ophthalmology 05/01/[address] 047194 06/22/23 Library Technical Assistant Relationship Specialty Start Date End Date Maldonado Raza MD [address] [place], [place] 706631 PCP - General Internal Medicine 03/27/12 Byron Day MD [address] [place], [place] 242881 Referring Ophthalmology 05/01/23 Asuncion Rossi, photocopier technicianCable Maker 04/26/[address] 761204 06/22/23 Library Technical Assistant Relationship Specialty Start Date End Date Maldonado Raza MD [address] [place], [place] 652231 PCP - General Internal Medicine 03/27/12 Byron Day MD [address] [place], [place] 774901 Referring Ophthalmology 05/01/23 Asuncion Rossi, photocopier technicianCable Maker 04/26/[address] [address] 06/22/23 Library Technical Assistant Relationship Specialty Start Date End Date Maldonado Raza MD [address] [place] [address] PCP - General Internal Medicine 03/27/12 Byron aDy MD [address] [place] [address] Referring Ophthalmology 05/01/23 Asuncion Rossi, photocopier technicianCable Maker 04/26/[address] [address] 06/22/23 Library Technical Assistant Relationship Specialty Start Date End Date Maldonado Raza MD [address] [place] [address] PCP - General Internal Medicine 03/27/12 Byron Day MD [address] [place] [address] Referring Ophthalmology 05/01/23 Asuncion Rossi, photocopier technicianCable Maker 04/26/[address] [address] 06/22/23 Library Technical Assistant Relationship Specialty Start Date End Date Maldonado Raza MD [address] [place] [address] PCP - General Internal Medicine 03/27/12 Byron Day MD [address] [place], [place] 949361 Referring Ophthalmology 05/01/23 Asuncoin Rossi, photocopier technicianCable Maker 04/26/[address] [address] 06/22/23 Library Technical Assistant Relationship Specialty Start Date End Date Maldonado Raza MD [address] [place] [address] PCP - General Internal Medicine 03/27/12 Byron Day MD [address] [place], [place] 423051 Referring Ophthalmology 05/01/23 Asuncion Rossi, photocopier technicianCable Maker 04/26/[email or web address] [address] 06/22/23 Library Technical Assistant Relationship Specialty Start Date End Date Maldonado Raza MD [address] [place], [place] 469611 PCP - General Internal Medicine 09/19/23 Library Technical Assistant Relationship Specialty Start Date End Date Maldonado Raza MD [address] [place], [place] 194421 PCP - General Internal Medicine 03/27/12 Byron Day MD [address] [place], [place] 249501 Referring Ophthalmology 05/01/23 Asuncion Rossi, photocopier technicianCable Maker 04/26/[email or web address] [address] 06/22/23 Library Technical Assistant Relationship Specialty Start Date End Date Maldonado Raza MD [address] [place], [place] 933321 PCP - General Internal Medicine 09/19/23 Library Technical Assistant Relationship Specialty Start Date End Date Maldonado Raza MD [address] [place], [place] 738431 PCP - General Internal Medicine 09/19/23 Library Technical Assistant Relationship Specialty Start Date End Date Maldonado Raza MD [address] [place], [place] 183141 PCP - General Internal Medicine 09/19/23 Library Technical Assistant Relationship Specialty Start Date End Date Maldonado Raza MD [address] [place], [place] 449421 PCP - General Internal Medicine 03/27/12 Byron Day MD [address] [place], [place] 763391 Referring Ophthalmology 05/01/23 Asuncion Rossi, photocopier technicianCable Maker 04/26/[address] 646574 06/22/23 Library Technical Assistant Relationship Specialty Start Date End Date Maldonado Raza MD [address] [place], [place] 827311 PCP - General Internal Medicine 03/27/12 Byron Day MD [address] [place], [place] 746161 Referring Ophthalmology 05/01/23 Asuncion Rossi, photocopier technicianCable Maker 04/26/24 Ifeoma Del Cid, DIRECTOR OF PHYSICAL EDUCATION.SCREW MACHINE OPERATOR SWISS TYPE [address] [place] [address] Global Cto Internal Medicine 08/12/[address] 944834 06/22/23 Library Technical Assistant Relationship Specialty Start Date End Date Maldonado Raza MD [address] [facility] [place] [address] PCP - General Internal Medicine 09/19/23 Library Technical Assistant Relationship Specialty Start Date End Date Maldonado Raza MD [address] [facility] [place] [address] PCP - General Internal Medicine 09/19/23 Library Technical Assistant Relationship Specialty Start Date End Date Maldonado Raza MD [address] [facility] [place] [address] PCP - General Internal Medicine 09/19/23 Library Technical Assistant Relationship Specialty Start Date End Date Maldonado Raza MD [address] [facility] [place] [address] PCP - General Internal Medicine 09/19/23 Library Technical Assistant Relationship Specialty Start Date End Date Maldonado Raza MD [address] [facility] [place] [address] PCP - General Internal Medicine 09/19/23 Library Technical Assistant Relationship Specialty Start Date End Date Maldonado Raza MD [address] [facility] [place] [address] PCP - General Internal Medicine 03/27/12 Byron Day MD [address] [place] [address] Referring Ophthalmology 05/01/23 Asuncion Rossi, photocopier technicianCable Maker 04/26/24 Ifeoma Del Cid, DIRECTOR OF PHYSICAL EDUCATION.SCREW MACHINE OPERATOR SWISS TYPE [address] [facility] [place] [address] Global Cto Internal Medicine 08/12/[address] [address] 06/22/23 Library Technical Assistant Relationship Specialty Start Date End Date Maldonado Raza MD [address] [facility] [place] [address] PCP - General Internal Medicine 03/27/12 Byron Day MD [address] [place], [place] 779561 Referring Ophthalmology 05/01/23 Ifeoma Del Cid, DIRECTOR OF PHYSICAL EDUCATION.SCREW MACHINE OPERATOR SWISS TYPE [address] [place] [address] Global Cto Internal Medicine 08/12/[address] [address] 06/22/23 Library Technical Assistant Relationship Specialty Start Date End Date Maldonado Raza MD [address] [place] [address] PCP - General Internal Medicine 09/19/23 Library Technical Assistant Relationship Specialty Start Date End Date Maldonado Raza MD [address] [facility] [place] [address] PCP - General Internal Medicine 03/27/12 Byron Day MD [address] [facility], [place] 435091 Referring Ophthalmology 05/01/23 Ifeoma Del Cid, DIRECTOR OF PHYSICAL EDUCATION.SCREW MACHINE OPERATOR SWISS TYPE [address] [place] [address] Global Cto Internal Medicine 08/12/[address] 849034 06/22/23 Library Technical Assistant Relationship Specialty Start Date End Date Maldonado Raza MD [address] [place] [address] PCP - General Internal Medicine 03/27/12 Byron Day MD [address] [place], [place] 038661 Referring Ophthalmology 05/01/23 Ifeoma Del Cid, DIRECTOR OF PHYSICAL EDUCATION.SCREW MACHINE OPERATOR SWISS TYPE [address] [place] [address] Global Cto Internal Medicine 08/12/[address] [address] 06/22/23 Library Technical Assistant Relationship Specialty Start Date End Date Maldonado Raza MD [address] [place] [address] PCP - General Internal Medicine 03/27/12 Byron Day MD [address] [place], [place] 134131 Referring Ophthalmology 05/01/23 Ifeoma Del Cid, DIRECTOR OF PHYSICAL EDUCATION.SCREW MACHINE OPERATOR SWISS TYPE [address] [place] [address] Global Cto Internal Medicine 08/12/[address] [address] 06/22/23 Library Technical Assistant Relationship Specialty Start Date End Date Maldonado Raza MD [address] [place], [place] 366031 PCP - General Internal Medicine 03/27/12 Byron Day MD [address] [place], [place] 460811 Referring Ophthalmology 05/01/23 Ifeoma Del Cid, DIRECTOR OF PHYSICAL EDUCATION.SCREW MACHINE OPERATOR SWISS TYPE [address] [place] [address] Global Cto Internal Medicine 08/12/[address] 830554 06/22/23 Library Technical Assistant Relationship Specialty Start Date End Date Maldonado Raza MD [address] [place] [address] PCP - General Internal Medicine 03/27/12 Byron Day MD [address] [place] [address] Referring Ophthalmology 05/01/23 Ifeoma Del Cid, DIRECTOR OF PHYSICAL EDUCATION.SCREW MACHINE OPERATOR SWISS TYPE [address] [place] [address] Global Cto Internal Medicine 08/12/[address] [address] 06/22/23 Library Technical Assistant Relationship Specialty Start Date End Date Maldonado Raza MD [address] [place] [address] PCP - General Internal Medicine 03/27/12 Byron Day MD [address] [place] [address] Referring Ophthalmology 05/01/23 Ifeoma Del Cid, DIRECTOR OF PHYSICAL EDUCATION.SCREW MACHINE OPERATOR SWISS TYPE [address] [place] [address] Global Cto Internal Medicine 08/12/[address] [address] 06/22/23 Library Technical Assistant Relationship Specialty Start Date End Date Maldonado Raza MD [address] [place] [address] PCP - General Internal Medicine 03/27/12 Byron Day MD [address] [place] [address] Referring Ophthalmology 05/01/23 Ifeoma Del Cid, DIRECTOR OF PHYSICAL EDUCATION.SCREW MACHINE OPERATOR SWISS TYPE [address] [place] [address] Global Cto Internal Medicine 08/12/[address] [address] 06/22/23 Library Technical Assistant Relationship Specialty Start Date End Date Maldonado Raza MD [address] [place] [address] PCP - General Internal Medicine 03/27/12 Byron Day MD [address] [place] [address] Referring Ophthalmology 05/01/23 Ifeoma Del Cid, DIRECTOR OF PHYSICAL EDUCATION.SCREW MACHINE OPERATOR SWISS TYPE [address] [place] [address] Global Cto Internal Medicine 08/12/[address] [address] 06/22/23 Library Technical Assistant Relationship Specialty Start Date End Date Maldonado Raza MD [address] [facility] [place] [address] PCP - General Internal Medicine 03/27/12 Byron Day MD [address] [facility] [place] [address] Referring Ophthalmology 05/01/23 Ifeoma Del Cid, DIRECTOR OF PHYSICAL EDUCATION.SCREW MACHINE OPERATOR SWISS TYPE [address] [facility] [place] [address] Global Cto Internal Medicine 08/12/[address] 382894 06/22/23 Library Technical Assistant Relationship Specialty Start Date End Date Maldonado Raza MD [address] [facility] [place] [address] PCP - General Internal Medicine 03/27/12 Byron Day MD [address] [facility] [place] [address] Referring Ophthalmology 05/01/23 Ifeoma Del Cid, DIRECTOR OF PHYSICAL EDUCATION.SCREW MACHINE OPERATOR SWISS TYPE [address] [facility] [place] [address] Global Cto Internal Medicine 08/12/[address] 323484 06/22/23 Library Technical Assistant Relationship Specialty Start Date End Date Maldonado Raza MD [address] [facility] [place] [address] PCP - General Internal Medicine 03/27/12 Byron Day MD [address] [place] [address] Referring Ophthalmology 05/01/23 Ifeoma Del Cid, DIRECTOR OF PHYSICAL EDUCATION.SCREW MACHINE OPERATOR SWISS TYPE [address] [place] [address] Global Cto Internal Medicine 08/12/[address] [address] 06/22/23 Team Status: Active Member Role Status Dates Dr. Maldonado Raza MD Primary Care Provider Active Team Status: Inactive Member Role Status Dates Dr. Maldonado Raza MD Primary Care Provider Active Start: December 31, 2024 End: December 31, 2024 Dr. Maldonado Raza MD Referring Provider Active Start: December 31, 2024 End: December 31, 2024 ELSY Thomas Attending Provider Active Sta rt: December 31, 2024 End: December 31, 2024 Team Status: Active Member Role Status Dates Dr. Maldonado Raza MD Primary Care Provider Active Start: January 28, 2025 Dr. Dave Coronado , DO Emergency Provider Activ e Start: January 28, 2025 Dr. Kade Ricketts MD Admit Provider [...] Other Provider Active Start: January 30, 2025 Library Technical Assistant Relationship Specialty Start Date End Date Maldonado Raza MD [address] [place], [place] 385091 PCP - General Internal Medicine 03/27/12 Byron Day MD [address] [place], [place] 746421 Referring Ophthalmology 05/01/23 Ifeoma Del Cid, DIRECTOR OF PHYSICAL EDUCATION.SCREW MACHINE OPERATOR SWISS TYPE [address] [place] [address] Global Cto Internal Medicine 08/12/[address] [address] 06/22/23 Library Technical Assistant Relationship Specialty Start Date End Date Maldonado Raza MD [address] [place] [address] PCP - General Internal Medicine 03/27/12 Byron Day MD [address] [place] [address] Referring Ophthalmology 05/01/23 Ifeoma Del Cid, DIRECTOR OF PHYSICAL EDUCATION.SCREW MACHINE OPERATOR SWISS TYPE [address] [place] [address] Global Cto Internal Medicine 08/12/[address] [address] 06/22/23 Library Technical Assistant Relationship Specialty Start Date End Date Maldonado Raza MD [address] [place], [place] 527361 PCP - General Internal Medicine 09/19/23 Library Technical Assistant Relationship Specialty Start Date End Date Maldonado Raza MD [address] [place], [place] 904661 PCP - General Internal Medicine 03/27/12 Byron Day MD [address] [place], [place] 879201 Referring Ophthalmology 05/01/23 Ife[place] Del Cid, DIRECTOR OF PHYSICAL EDUCATION.SCREW MACHINE OPERATOR SWISS TYPE [address] [place] [address] Global Cto Internal Medicine 08/12/[address] [address] 06/22/23 Team Status: Active Member Role/Relationship Status Dates Dr. Maldonado Raza MD Primary Care Provider Active Team Status: Inactive Member Role/Relationship Status Dates Dr. Maldonado Raza MD Primary Care Provider Active Start: January 28, 2025 End: January 30, 2025 Dr. Dave Coronado DO Emergency Provider [...] January 30, 2025 Team Status: Active Member Role/Relationship Status Dates Dr. Maldonado Raza MD Primary Care Provider Active Start: January 28, 2025 Dr. Lidia Garcia MD Attending Provider Active Start: January 28, 2025 Team Status: Active Member Role/Relationship Status Dates Dr. Maldonado Raza MD Primary Care Provider Active Start: January 29, 2025 Dr. Dave Coronado DO Emergency Provider Activ e Start: January 29, 2025 Dr. Kade Ricketts MD Admit Provider Active Star t: January 29, 2025 Dr. Kade Ricketts MD Attending Provider Active Start: January 29, 2025 Dr. Kade Ricketts MD Other Provider Active Star t: January 29, 2025 Dr. South Vasques MD Other Provider Active Start: January 29, 2025 Team Status: Active Member Role/Relationship Status Dates Dr. Maldonado Raza MD Primary Care Provider Active Start: January 30, 2025 Dr. Dave Coronado DO Emergency Provider Activ e Start: January 30, 2025 Dr. Kade Ricketts MD Admit Provider Active Star t: January 30, 2025 Dr. Kade Ricketts MD Attending Provider Active Start: January 30, 2025 Dr. Kade Ricketts MD Other Provider Active Star t: January 30, 2025 Dr. South Vaqsues MD Other Provider Active Start: January 30, 2025 Team Status: Inactive Member Role/Relationship Status Dates Dr. Maldonado Raza MD Primary Care Provider Active Start: May 17, 2025 End: May 18, 2025 Dr. Donald Ruiz DO Emergency Provider Active Start: May 17, 2025 End: May 18, 2025 Goals (unrecognized section and content) Goals may [...] BE BASED ON THE PRIMARY CLINICAL RECORDS. [facility] [employer] [facility]. provides no warranty or guarantee of the accuracy or completeness of information in this document.
--- NOTE | 2025-05-19 04:57 | EKG12_ITS ---
Test Reason : SOB Blood Pressure : */* mmHG Vent. Rate : 70 BPM Atrial Rate : 70 BPM P-R Int : 168 ms QRS Dur : 136 ms QT Int : 454 ms P-R-T Axes : -9 -44 119 degrees QTcB Int : 490 ms Normal sinus rhythm Left axis deviation Right bundle branch block Minimal voltage criteria for LVH, may be normal variant ( R in aVL ) T wave abnormality, consider lateral ischemia Abnormal ECG Confirmed by Riley Genao ([id number]), desk editor LIAS MAI ([id number]) on 05/20/2025 11:55:32 AM Referred By: YANY Confirmed By: Riley Genao
--- NOTE | 2025-05-19 05:20 | RAD_ITS ---
PROCEDURE: CHEST PA AND LATERAL 05/19/2025 REASON FOR EXAM: DYSPNEA TECHNIQUE: Procedure Code: RADCXR Modality: DX Procedure: CHEST PA AND LATERAL COMPARISON: January 28, 2025 FINDINGS: A stent is noted in the right upper chest, unchanged. Surgical clips are noted in the right upper quadrant. There is moderate cardiomegaly with mild central vascular congestion. There are interstitial infiltrates in the lower lung reyes bilaterally, similar to the prior. There is a large right and moderate left pleural effusion, similar to the prior. Aortic calcifications are noted. There is no visible acute bony abnormality. RAD/Chest PA and Lateral IMPRESSION: There is moderate cardiomegaly with mild central vascular congestion. There are interstitial infiltrates in the lower lung reyes bilaterally, simila r to the prior. There is a large right and moderate left pleural effusion, similar to the prior . Reading Location: [facility]
[2025-05-19 05:22] LABS: Magnesium 3.0 mg/dL (1.5-2.2)
[2025-05-19 05:31] LABS: Anion Gap 15 (5-15); BUN 44 mg/dL (4-19); BUN/Creat Ratio 5.5 RATIO (10-20); Calcium,Total 9.7 mg/dL (7.6-11.0); Carbon Dioxide 28.2 mmol/L (21.0-32.0); Chloride 96 mmol/L (98-108); Estimated Creatinine Clearance 5.78 ml/min (50-250); Glucose 295 mg/dL (70-99); Potassium 5.4 mmol/L (3.3-5.1)
--- NOTE | 2025-05-19 05:45 | EX.ED.DYSGE1 ---
HPI History of Present Illness Chief Complaint: Shortness of Breath Informant: patient Narrative Narrative: Patient is a 60-year-old female with past medical history of anxiety and depression as well as hypertension hypothyroidism insulin-dependent type 2 diabetes and chronic kidney failure on dialysis. Patient states she has oxygen at home and she will wear this occasionally when she feels short of breath. She reports that throughout the night she was feeling short of breath and therefore placed herself on oxygen. She states that she did not feel like she was getting better and she decided to check her pulse ox at home. She reports it was approximately 75% with the oxygen which concerned her and therefore she comes to the hospital for evaluation. Upon arrival to the ER patient is 74% on room air. Patient reports she receives dialysis Monday and Monday and had dialysis as scheduled this past Monday. [facility] Medical History S/p small bowel obstruction Incarcerated incisional hernia Wears hearing aid in both ears Hypothyroidism Dialysis patient Kidney disease Former smoker Congestive heart failure (CHF) TIA (transient ischemic attack) Problem with dialysis access Hemorrhoids Acid reflux Constipation Anxiety Depression Hypertension Heart disease Diabetes Thyroid disease Home Medications ?Medication ?Instructions ?Recorded ?Last Taken ?Type aspirin 81 mg tablet,delayed 81 mg PO DAILY heart health 08/14/18 01/27/25 History release (Adult Low Dose Aspirin) atorvastatin 40 mg tablet 40 mg PO QHS CHOLESTEROL 08/14/18 01/27/25 History vitamin B complex-vitamin C-folic 1 tab PO DAILY SUPPLEMENT 01/11/21 01/27/25 History acid 0.8 mg tablet (Bethanie-Petey) levothyroxine 125 mcg tablet 125 mcg PO DAILY THYROID 05/31/23 01/27/25 History lisinopril 40 mg tablet 40 mg PO DAILY BLOOD PRESSURE 05/31/23 01/27/25 History sucroferric oxyhydroxide 500 mg 500 mg PO TID PHOSPHATE BINDER 05/31/23 01/27/25 History chewable tablet (Velphoro) amlodipine 10 mg tablet 10 mg PO DAILY blood pressure 01/28/25 01/27/25 History clonidine HCl 0.2 mg tablet 0.2 mg PO BID blood pressure 01/28/25 01/27/25 History insulin glargine 100 unit/mL (3 48 unit subcut QHS diabetes 01/28/25 01/27/25 History mL) subcutaneous pen (Lantus Solostar U-100 Insulin) insulin lispro 100 unit/mL 8 unit subcut .COMPLEX diabetes 01/28/25 01/27/25 History subcutaneous pen metoprolol tartrate 25 mg tablet 25 mg PO Q12H blood pressure 01/28/25 01/27/25 History sumatriptan succinate 50 mg tablet 50 mg PO BID PRN migraine 01/28/25 Unknown History furosemide 40 mg tablet (Lasix) 40 mg PO DAILY #90 tabs 01/30/25 Unknown Rx ondansetron 4 mg disintegrating 4 mg PO Q8H PRN PRN Nausea #10 tabs 05/17/25 Unknown Rx tablet oxycodone 5 mg tablet 5 mg PO Q6H PRN pain 3 days #12 05/17/25 Unknown Rx tabs Allergy/AdvReac Type Severity Reaction Status Date / Time Penicillins Allergy Severe Anaphylaxis Verified 05/17/25 21:20 chlorhexidine Allergy Mild rash Verified 05/17/25 21:20 codeine Allergy Unknown Unknown Verified 05/17/25 21:20 latex Allergy Unknown Unknown Verified 05/17/25 21:20 Family History Brother Kidney disease Mother Cancer lung cancer Father Colon cancer Surgical History S/P laparotomy with lysis of adhesions Hx of arteriovenostomy for renal dialysis Hx of bilateral breast reduction surgery History of partial hysterectomy History of bowel resection Hx of appendectomy Hx of cholecystectomy Social History Smoking Status: Former smoker alcohol intake: never substance use type: does not use caffeine: Yes what type of physical activity do you participate in: none frequency: does not exercise ROS ROS ED Constitutional Constitutional ED: Denies chills or fever(s) ENT ENT ED: Denies sore throat Cardiovascular Cardiovascular: Denies chest pain Respiratory/Chest Respiratory/Chest: Reports dyspnea; Denies cough Gastrointestinal Gastrointestinal: Reports abdominal pain; Denies diarrhea, nausea or vomiting Musculoskeletal Musculoskeletal: Denies myalgias Integumentary Denies rash Neurologic Neurologic: Denies headache(s) Psychiatric Psychiatric: Reports anxiety and depression Allergic/Immunologic Allergic/Immunologic ED: Denies mouth swelling or tongue swelling EXAM Physical Exam Const Vital Signs: 05/19/25 04:07 05/19/25 04:09 05/19/25 04:09 Temperature 97.7 F L 97.7 F L Temperature Source Oral Oral Pulse Rate 72 72 Respiratory Rate 17 17 Respiratory Effort Respiratory Depth Respiratory Pattern Blood Pressure 153/53 H 153/53 H Blood Pressure Mean 86 86 Pulse Ox 74 100 100 Oxygen Delivery Method Room Air Nasal Cannula Nasal Cannula Oxygen Flow Rate (L/min) 2 2 05/19/25 04:47 05/19/25 04:48 05/19/25 04:54 Temperature 98.2 F Temperature Source Oral Pulse Rate 69 Respiratory Rate 13 Respiratory Effort Normal Respiratory Depth Normal Respiratory Pattern Normal Blood Pressure 144/67 H Blood Pressure Mean 92 Pulse Ox 98 97 Oxygen Delivery Method Nasal Cannula Nasal Cannula Nasal Cannula Oxygen Flow Rate (L/min) 2 2 1 05/19/25 04:54 05/19/25 06:00 Temperature 98.1 F Temperature Source Oral Pulse Rate 68 64 Respiratory Rate 10 L 16 Respiratory Effort Respiratory Depth Respiratory Pattern Bradypnea Blood Pressure 116/47 L Blood Pressure Mean 70 Pulse Ox 100 Oxygen Delivery Method Room Air Oxygen Flow Rate (L/min) Positive well nourished and well developed General Appearance ED: well developed and pallor HEENT HEENT Narrative: Normocephalic atraumatic No tongue or lip swelling no oral lesions no airway edema or compromise; no secondary findings in the posterior pharynx to suggest infection There is cobblestoning noted in the posterior pharynx consistent with sinus drainage Eyes PERRL and EOMs intact bilaterally General Eye ED: Negative for scleral icterus Neck supple and no JVD Resp normal respiratory effort Resp Narrative: Breath sounds are diminished throughout with faint rhonchi bilaterally and faint crackles on the right There is an occasional scattered wheeze as well Cardio regular rate and regular rhythm Extremity Extremity Narrative: Trace to +1 pitting edema to the bilateral lower extremities which is equal and symmetric Negative Homans' sign bilaterally Neuro oriented x3, CN's II-XII intact bilaterally and no sensory deficits noted Sensorium / Orientation: alert Motor Exam: strength 5/5 throughout Psych mental status grossly normal Skin no rashes or lesions noted Skin Narrative: Skin is pale in color but capillary refills less than 3 seconds General Skin Exam: pallor MDM MDM MDM Narrative Medical decision making narrative: Patient arrived to the ER satting 75% on room air. She states that she typically does not require oxygen at baseline but will use it intermittently when she has increased shortness of breath. Her previous ER visit as well as inpatient record from January was reviewed and at that time she had similar presentation leading to a bout of hypoxia. With her history there is concern for acute blood loss anemia versus clinically significant electrolyte lab normality versus pneumonia versus congestive heart failure exacerbation versus pneumothorax. A chest x-ray was obtained and does show bilateral pleural effusions with pulmonary edema similar in appearance to January of this year. As there was no repeat x-ray I have no way to know if her symptoms improved after previous admission and there was improvement on the x-ray or if it has been chronic in nature since that time. She is only requiring 1 or 2 L of nasal cannula oxygen for improvement of symptoms and her pulse ox is 98 to 100% on that. Also her work of breathing is minimal. I do feel that the main treatment for her volume overload is dialysis however the patient states that she already missed it this morning. Secondary to this I contacted her electronic equipment installer Dr. Vasques. He recommends that as the patient was hypoxic upon arrival and does not typically require oxygen at baseline and does have volume overload changes on the chest x-ray similar to January as well as the fact she has already missed her dialysis session this morning that she come into the hospital for dialysis. Secondary to this the case was discussed with the hospitalist who agrees to accept the patient for continued monitoring and care The radiologist did mention interstitial infiltrates but the patient is afebrile without leukocytosis or left shift and therefore I do not feel there is need for emergent antibiotics History & Record Review Discussion w/independent historian: Patient Additional record(s) reviewed:: Prior inpatient record and Prior ED visit Lab Data Attestation: I reviewed the patient's lab results. Labs: Laboratory Results - last 24 hr 05/19/25 04:12 WBC 5.2 RBC 3.41 L Hgb 10.2 L Hct 31.3 L MCV 91.8 MCH 29.9 MCHC 32.6 RDW Std Deviation 43.5 RDW Coeff of Alvina 13.0 Plt Count 163 MPV 10.1 Immature Gran % (Auto) 0.000 Neut % (Auto) 65.2 Lymph % (Auto) 25.4 [place] % (Auto) 6.9 Eos % (Auto) 1.3 Baso % (Auto) 1.2 H Absolute Neuts (auto) 3.4 Absolute Lymphs (auto) 1.32 Nucleated RBC % 0 Sodium 139 Potassium 5.4 H Chloride 96 L Carbon Dioxide 28.2 Anion Gap 15 BUN 44 H Creatinine 8.09 H* Estim Creat Clear Calc 5.78 L* Est GFR (MDRD) Non-Af 5 L BUN/Creatinine Ratio 5.5 L Glucose 295 H Calcium 9.7 Phosphorus 4.6 H Magnesium 3.0 H Radiography Diagnostic Testing: Clinical Impression(s) from Imaging Studies Chest X-Ray 05/19/25 05:20 IMPRESSION: There is moderate cardiomegaly with mild central vascular congestion. There are interstitial infiltrates in the lower lung reyes bilaterally, similar to the prior. There is a large right and moderate left pleural effusion, similar to the prior. Reading Location: [facility] Chest x-ray as interpreted by the emergency medicine physician reveals mild cardiomegaly with bilateral pleural effusions and vascular congestion Management Discussion w/another healthcare provider: Hospitalist and Specimen Collector Discharge Plan Dx/Rx/DC Orders Clinical Impression: ESRD (end stage renal disease) on dialysis, Hypertension, CHF exacerbation, Diabetes mellitus type 2, insulin dependent, Hypothyroidism Disposition Disposition: [facility]
--- NOTE | 2025-05-19 07:04 | PCM.HP.STD ---
HPI - General General Date of Admission: 05/19/25 Date of Service: 05/19/25 Chief Complaint: Shortness of breath HPI Narrative GIULIANA BRAVO, is a 60 F with past medical history sent in for end-stage renal disease on hemodialysis Wednesdays and Fridays who presented with shortness of breath. Patient reports having missed dialysis 05/14/2025 However she had dialysis on 05/16/2025. She woke up on the morning of her presentation with significant shortness of breath. Patient denied any subjective fever however did complain of chills. She had a nonproductive cough. Chest x-ray obtained in the ED demonstrated central vascular congestion as well as interstitial infiltrate in the lower lungs reyes bilaterally with large right and moderate pleural effusion. The audio visual technician on-call was notified recommended for patient to be admitted for inpatient management. [facility] Medical History S/p small bowel obstruction Incarcerated incisional hernia Wears hearing aid in both ears Hypothyroidism Dialysis patient Kidney disease Former smoker Congestive heart failure (CHF) TIA (transient ischemic attack) Problem with dialysis access Hemorrhoids Acid reflux Constipation Anxiety Depression Hypertension Heart disease Diabetes Thyroid disease Home Medications ?Medication ?Instructions ?Recorded ?Last Taken ?Type aspirin 81 mg tablet,delayed 81 mg PO DAILY heart health 08/14/18 01/27/25 History release (Adult Low Dose Aspirin) atorvastatin 40 mg tablet 40 mg PO QHS CHOLESTEROL 08/14/18 01/27/25 History vitamin B complex-vitamin C-folic 1 tab PO DAILY SUPPLEMENT 01/11/21 01/27/25 History acid 0.8 mg tablet (Bethanie-Petey) levothyroxine 125 mcg tablet 125 mcg PO DAILY THYROID 05/31/23 01/27/25 History lisinopril 40 mg tablet 40 mg PO DAILY BLOOD PRESSURE 05/31/23 01/27/25 History sucroferric oxyhydroxide 500 mg 500 mg PO TID PHOSPHATE BINDER 05/31/23 01/27/25 History chewable tablet (Velphoro) amlodipine 10 mg tablet 10 mg PO DAILY blood pressure 01/28/25 01/27/25 History clonidine HCl 0.2 mg tablet 0.2 mg PO BID blood pressure 01/28/25 01/27/25 History insulin glargine 100 unit/mL (3 48 unit subcut QHS diabetes 01/28/25 01/27/25 History mL) subcutaneous pen (Lantus Solostar U-100 Insulin) insulin lispro 100 unit/mL 8 unit subcut .COMPLEX diabetes 01/28/25 01/27/25 History subcutaneous pen metoprolol tartrate 25 mg tablet 25 mg PO Q12H blood pressure 01/28/25 01/27/25 History sumatriptan succinate 50 mg tablet 50 mg PO BID PRN migraine 01/28/25 Unknown History furosemide 40 mg tablet (Lasix) 40 mg PO DAILY #90 tabs 01/30/25 Unknown Rx ondansetron 4 mg disintegrating 4 mg PO Q8H PRN PRN Nausea #10 tabs 05/17/25 Unknown Rx tablet oxycodone 5 mg tablet 5 mg PO Q6H PRN pain 3 days #12 05/17/25 Unknown Rx tabs Allergy/AdvReac Type Severity Reaction Status Date / Time Penicillins Allergy Severe Anaphylaxis Verified 05/17/25 21:20 chlorhexidine Allergy Mild rash Verified 05/17/25 21:20 codeine Allergy Unknown Unknown Verified 05/17/25 21:20 latex Allergy Unknown Unknown Verified 05/17/25 21:20 Family History Brother Kidney disease Mother Cancer lung cancer Father Colon cancer Surgical History S/P laparotomy with lysis of adhesions Hx of arteriovenostomy for renal dialysis Hx of bilateral breast reduction surgery History of partial hysterectomy History of bowel resection Hx of appendectomy Hx of cholecystectomy Social History Smoking Status: Former smoker alcohol intake: never substance use type: does not use caffeine: Yes what type of physical activity do you participate in: none frequency: does not exercise ROS ROS Narrative GENERAL: denies fever, weight loss, anorexia HEENT: denies headache, sinus congestion, or drainage, dysphagia RESPIRATORY: cough, s shortness of breath, dyspnea on exertion CARDIAC: denies chest pain, palpitations, orthopnea, PND GASTROINTESTINAL: denies abdominal pain, nausea, vomiting, melena, GENITOURINARY: denies dysuria, urgency, frequency, heamaturia EXTREMITY: denies swelling MUSCULOSKELETAL: denies current joint pain or tenderness NEUROLOGIC: denies focal numbness, weakness, tingling HEMATOLOGIC: denies easy bruising and/or hemorrhage INTEGUMENT: denies rashes PSYCHIATRIC: denies suicidal or homicidal ideation Vital Signs Vital Signs Vital Signs: 05/19/25 04:07 05/19/25 04:09 05/19/25 04:09 Temperature 97.7 F L 97.7 F L Temperature Source Oral Oral Pulse Rate 72 72 Respiratory Rate 17 17 Respiratory Effort Respiratory Depth Respiratory Pattern Blood Pressure 153/53 H 153/53 H Blood Pressure Mean 86 86 Pulse Ox 74 100 100 Oxygen Delivery Method Room Air Nasal Cannula Nasal Cannula Oxygen Flow Rate (L/min) 2 2 05/19/25 04:47 05/19/25 04:48 05/19/25 04:54 Temperature 98.2 F Temperature Source Oral Pulse Rate 69 Respiratory Rate 13 Respiratory Effort Normal Respiratory Depth Normal Respiratory Pattern Normal Blood Pressure 144/67 H Blood Pressure Mean 92 Pulse Ox 98 97 Oxygen Delivery Method Nasal Cannula Nasal Cannula Nasal Cannula Oxygen Flow Rate (L/min) 2 2 1 05/19/25 04:54 05/19/25 06:00 Temperature 98.1 F Temperature Source Oral Pulse Rate 68 64 Respiratory Rate 10 L 16 Respiratory Effort Respiratory Depth Respiratory Pattern Bradypnea Blood Pressure 116/47 L Blood Pressure Mean 70 Pulse Ox 100 Oxygen Delivery Method Room Air Oxygen Flow Rate (L/min) Weight Weight: 57.5 kg Body Mass Index (BMI) 23.1 Physical Exam Narrative GENERAL: Ill looking HEENT: Atraumatic; normocephalic EYES; Anicteric, Normal Conjunctiva NECK; supple, normal thyroid, RESPIRATORY: Diminished to auscultation CARDIOVASCULAR: Regular S1 S2, GI: soft, normoactive bowel sounds, : No Renal angle tenderness; EXTREMITIES: AV fistula right arm MUSCULOSKELETAL: no muscle wasting NEURO: Awake; no lateralizing signs. SKIN: No Rash PSYCH; Flat affect Results Lab / Micro Data 05/19/25 04:12 05/19/25 04:12 Labs: Laboratory Results - last 24 hr 05/19/25 04:12: WBC 5.2, RBC 3.41 L, Hgb 10.2 L, Hct 31.3 L, MCV 91.8, MCH 29.9, MCHC 32.6, RDW Std Deviation 43.5, RDW Coeff of Alvina 13.0, Plt Count 163, MPV 10.1, Immature Gran % (Auto) 0.000, Neut % (Auto) 65.2, Lymph % (Auto) 25.4, [place] % (Auto) 6.9, Eos % (Auto) 1.3, Baso % (Auto) 1.2 H, Absolute Neuts (auto) 3.4, Absolute Lymphs (auto) 1.32, Nucleated RBC % 0, Sodium 139, Potassium 5.4 H, Chloride 96 L, Carbon Dioxide 28.2, Anion Gap 15, BUN 44 H, Creatinine 8.09 H*, Estim Creat Clear Calc 5.78 L*, Est GFR (MDRD) Non-Af 5 L, BUN/Creatinine Ratio 5.5 L, Glucose 295 H, Calcium 9.7, Phosphorus 4.6 H, Magnesium 3.0 H Micro: Microbiology 05/19/25 04:44 Mucosa - Nose SARS-CoV-2, Influenza & RSV (PCR) - Final Imaging Radiology Impression Chest X-Ray 05/19/25 05:20 IMPRESSION: There is moderate cardiomegaly with mild central vascular congestion. There are interstitial infiltrates in the lower lung reyes bilaterally, similar to the prior. There is a large right and moderate left pleural effusion, similar to the prior. Reading Location: [facility] Assessment & Plan Assessment/Plan (1) CHF exacerbation: PLAN: Plan Patient is a 60-year-old lady with history of end-stage renal disease on hemodialysis presented with shortness of breath. Imaging studies demonstrated vascular congestion. 1.Acute congestive heart failure with preserved ejection fraction ? 2D echo from patient admission in January demonstrated estimated ejection fraction of 55-60 %. Overall normal LV systolic function No significant valvular abnormality noted. Patient has been admitted to a monitored bed started on strict input and output, daily weight, low-sodium diet furosemide and consult placed to nephrology for dialysis to manage patient fluid overload 2. Bilateral pleural effusion ? Secondary to patient congestive heart failure do expect improvement with treatment 3. End-stage renal disease on hemodialysis ? Dialysis days Wednesdays and Fridays. Consult placed to nephrology for dialysis orders. Ordered daily BMP for subsequent eval 4. Hypermagnesemia ? Secondary to ESRD do expect improvement with dialysis 5. Hyperkalemia ? Patient potassium on admission was 5.4 patient is scheduled to undergo dialysis 6. Hyperphosphatemia ? Secondary to renal bone disease. Management deferred to nephrology 7. Diabetes mellitus type II Patient is on long-acting insulin as well as scheduled short acting insulin did continue with home regimen. In addition patient was placed on Accu-Cheks a.c. and at bedtime and covered with sliding scale insulin 8. Hypertension ? Blood pressure control not optimal, resume home medication added hydralazine as needed for systolic blood pressure greater than 160 9. Hypothyroidism ? Patient is on levothyroxine home dose continued 10. Depression with anxiety ? Per history patient currently not on any treatment 11. Dyslipidemia ?Patient is on statin therapy, continued at home dose 12. Anemia ? Secondary to chronic disorder monitoring H&H and transfuse if patient becomes symptomatic or hemoglobin falls below 7 13. DVT prophylaxis ? Subcu heparin Advance planning; did discuss with the patient and family regarding advanced directives as well as CODE STATUS. Did explain the various scenarios involved ( FULL CODE, DNR CCA, DNR CCA with no intubation, and DNR CC and what each meant) patient elected to be DNR CCA no intubation. Order was placed. Time spent on discussion 18 minutes. Charges/Coding Multi Select Codes Visit Charges Visit Charges: 48445 Init Hosp L3 Hospitalists' Procedures Procedures: 01530 Advncd Care Plan 30 Min
[2025-05-19] MEDS: PureFlow B 2K Dialysis Soln 1 BAG 6 BAG PF (08:57)
[2025-05-19] MEDS: 0.9% Normal Saline 1,000 ML IV.SOLN. 1000 ML OPERA.SITE (08:57)
--- NOTE | 2025-05-19 10:37 | PCM.CONS.R ---
Assessment & Plan Assessment/Plan (1) ESRD (end stage renal disease) on dialysis: (2) CHF exacerbation: (3) Hypertension: PLAN: Plan This is a 60-year-old female with past medical history significant for end-stage renal disease on hemodialysis Monday schedule at [facility] who presented to the emergency room with complaints of shortness of breath. Admitted for acute CHF, bilateral pleural effusions. Nephrology consulted as patient has history of ESRD and for dialysis management. Patient undergoing hemodialysis today on 2K bath over 4 hours and attempting around 3 to 4 L fluid removal as patient/blood pressure tolerates. Likely EDW will be lowered by time of hospital discharge. We will evaluate for hemodialysis/fluid removal needs tomorrow. Blood pressures are acceptable during dialysis today. Patient has history of anemia of chronic disease, we will monitor hemoglobin trends, hemoglobin 10.2, patient does not need LEANA with dialysis today. Further orders forthcoming as hospitalization evolves, thank you for allowing us to participate in the care of Ms. Bravo. Assessment and plan reviewed with Dr. Vasques. HPI Consult Data Date of Consult: 05/19/25 HPI Narrative HPI Narrative: GIULIANA BRAVO, is a 60 F with past medical history significant for end-stage renal disease on hemodialysis at [facility] who presented to the emergency room this morning with complaints of shortness of breath. CXR in ER showed vascular congestion, interstitial infiltrates and large right pleural effusion. Patient was admitted for further evaluation and treatment. Patient states she last dialyzed Monday. Patient denies any recent cramping with dialysis. Patient denies any recent fever or chills. States she wears oxygen as needed at home. FORMERLY [facility], [facility] Medical History S/p small bowel obstruction Incarcerated incisional hernia Wears hearing aid in both ears Hypothyroidism Dialysis patient Kidney disease Former smoker Congestive heart failure (CHF) TIA (transient ischemic attack) Problem with dialysis access Hemorrhoids Acid reflux Constipation Anxiety Depression Hypertension Heart disease Diabetes Thyroid disease Home Medications ?Medication ?Instructions ?Recorded ?Last Taken ?Type aspirin 81 mg tablet,delayed 81 mg PO DAILY heart health 08/14/18 01/27/25 History release (Adult Low Dose Aspirin) atorvastatin 40 mg tablet 40 mg PO QHS CHOLESTEROL 08/14/18 01/27/25 History vitamin B complex-vitamin C-folic 1 tab PO DAILY SUPPLEMENT 01/11/21 01/27/25 History acid 0.8 mg tablet (Bethanie-Petey) levothyroxine 125 mcg tablet 125 mcg PO DAILY THYROID 05/31/23 01/27/25 History lisinopril 40 mg tablet 40 mg PO DAILY BLOOD PRESSURE 05/31/23 01/27/25 History sucroferric oxyhydroxide 500 mg 500 mg PO TID PHOSPHATE BINDER 05/31/23 01/27/25 History chewable tablet (Velphoro) amlodipine 10 mg tablet 10 mg PO DAILY blood pressure 01/28/25 01/27/25 History clonidine HCl 0.2 mg tablet 0.2 mg PO BID blood pressure 01/28/25 01/27/25 History insulin glargine 100 unit/mL (3 48 unit subcut QHS diabetes 01/28/25 01/27/25 History mL) subcutaneous pen (Lantus Solostar U-100 Insulin) insulin lispro 100 unit/mL 8 unit subcut .COMPLEX diabetes 01/28/25 01/27/25 History subcutaneous pen metoprolol tartrate 25 mg tablet 25 mg PO Q12H blood pressure 01/28/25 01/27/25 History sumatriptan succinate 50 mg tablet 50 mg PO BID PRN migraine 01/28/25 Unknown History furosemide 40 mg tablet (Lasix) 40 mg PO DAILY #90 tabs 01/30/25 Unknown Rx ondansetron 4 mg disintegrating 4 mg PO Q8H PRN PRN Nausea #10 tabs 05/17/25 Unknown Rx tablet oxycodone 5 mg tablet 5 mg PO Q6H PRN pain 3 days #12 05/17/25 Unknown Rx tabs Allergy/AdvReac Type Severity Reaction Status Date / Time Penicillins Allergy Severe Anaphylaxis Verified 05/17/25 21:20 chlorhexidine Allergy Mild rash Verified 05/17/25 21:20 codeine Allergy Unknown Unknown Verified 05/17/25 21:20 latex Allergy Unknown Unknown Verified 05/17/25 21:20 Family History Brother Kidney disease Mother Cancer lung cancer Father Colon cancer Surgical History S/P laparotomy with lysis of adhesions Hx of arteriovenostomy for renal dialysis Hx of bilateral breast reduction surgery History of partial hysterectomy History of bowel resection Hx of appendectomy Hx of cholecystectomy Social History Smoking Status: Former smoker alcohol intake: never substance use type: does not use caffeine: Yes what type of physical activity do you participate in: none frequency: does not exercise ROS ROS Narrative As in HPI Physical Exam Narrative Alert and oriented x 3, no apparent distress S1 S2 RRR Lungs sound diminished, faint rales noted. Patient on O2 nasal cannula Abdomen soft, nontender No edema to bilateral lower legs or feet Right forearm AV fistula accessed for hemodialysis Lab / Micro Data 05/19/25 04:12 05/19/25 04:12 Labs: Laboratory Results - last 24 hr 05/19/25 04:12: WBC 5.2, RBC 3.41 L, Hgb 10.2 L, Hct 31.3 L, MCV 91.8, MCH 29.9, MCHC 32.6, RDW Std Deviation 43.5, RDW Coeff of Alvina 13.0, Plt Count 163, MPV 10.1, Immature Gran % (Auto) 0.000, Neut % (Auto) 65.2, Lymph % (Auto) 25.4, [place] % (Auto) 6.9, Eos % (Auto) 1.3, Baso % (Auto) 1.2 H, Absolute Neuts (auto) 3.4, Absolute Lymphs (auto) 1.32, Nucleated RBC % 0, Sodium 139, Potassium 5.4 H, Chloride 96 L, Carbon Dioxide 28.2, Anion Gap 15, BUN 44 H, Creatinine 8.09 H*, Estim Creat Clear Calc 5.78 L*, Est GFR (MDRD) Non-Af 5 L, BUN/Creatinine Ratio 5.5 L, Glucose 295 H, Calcium 9.7, Phosphorus 4.6 H, Magnesium 3.0 H Micro: Microbiology 05/19/25 04:44 Mucosa - Nose SARS-CoV-2, Influenza & RSV (PCR) - Final Imaging Radiology Impression Chest X-Ray 05/19/25 05:20 IMPRESSION: There is moderate cardiomegaly with mild central vascular congestion. There are interstitial infiltrates in the lower lung reyes bilaterally, similar to the prior. There is a large right and moderate left pleural effusion, similar to the prior. Reading Location: [facility]
--- NOTE | 2025-05-19 13:58 | CHAPLAIN ---
Type of Pastoral Visit _x__ Initial Visit ___ Follow-up Visit ___ On-call Visit ___ General Patient Visit ___ Spiritual Assessment ___ Family Conference ___ Bereavement ___ Rapid Response ___ Code Blue ___ Other (describe below) Pastoral Care Referral From _x__ Patient ___ Family ___ Nurse ___ Physician ___ Perinatal Tech ___ Overlock Waistline Joiner ___ Other (describe below) Sacrament/Intervention _x__ Active listening ___ Anointing ___ Religion ___ Bereavement ___ Communion ___ Nadia exploration ___ ___ Life review _x__ Prayer ___ Reconciliation ___ Sacrament of Sick _x__ Supportive presence ___ Wedding ___ Other (describe below) Pastoral Comments patient and spouse are in the room; pt acknowledges dialysis earlier today and being tired from that along with not feeling well; pt says that she does not have needs but would welcome a prayer for support; spouse denies any particular needs or concerns;
[2025-05-19] MEDS: 0.9% Saline Lock 10 ML Syringe IV (14:25)
--- NOTE | 2025-05-19 14:51 | CASEMGMT ---
NGUYEN Met with patient to complete NGUYEN form. NGUYEN form and its content were verbally explained and patient's questions were answered to the best of my ability.? Patient voiced understanding and signed NGUYEN form.? Patient provided a copy of signed NGUYEN form and original placed in patient's chart.? Patient had no further questions. Etta Roper, Discharge Planning Asst
[2025-05-20] VITALS (8 sets, daily range): BP systolic 136–168; BP diastolic 48–63; PULSE 69–92; RESP 14–20; TEMP 36.6–36.9; O2SAT 94–100
[2025-05-20 07:38] LABS: Anion Gap 14 (5-15); BUN 31 mg/dL (4-19); BUN/Creat Ratio 5.4 RATIO (10-20); Calcium,Total 9.2 mg/dL (7.6-11.0); Carbon Dioxide 22.8 mmol/L (21.0-32.0); Chloride 101 mmol/L (98-108); Estimated Creatinine Clearance 8.17 ml/min (50-250); Glucose 125 mg/dL (70-99); Magnesium 2.8 mg/dL (1.5-2.2); Potassium 5.8 mmol/L (3.3-5.1)
[2025-05-20 08:47] LABS: Hematocrit 33.0 % (37-47); Hemoglobin 10.5 g/dL (12.0-15.0); Immature Granulocytes Count 0.040 X10^3/uL (0.0-0.0); Mean Corp Hgb Conc 31.8 g/dL (32-36); Mean Corpuscular Volume 93.2 fL (81-99); Mean Platelet Vol. 11.3 fl (6.2-12.0); NRBC Flagged by Analyzer 0 % (0-5); POSITIVE COUNT YES; RBC Distribution Width CV 12.8 % (11.6-14.6); RBC Distribution Width SD 43.9 fl (35.1-43.9); Red Blood Count 3.54 M/mm3 (4.2-5.4); White Blood Count 7.4 K/mm3 (4.4-11.0)
--- NOTE | 2025-05-20 09:14 | PCM.PN.HOSP ---
Reason for Visit Chief Complaint: Shortness of breath Subjective Subjective Patient seen still complains of shortness of breath. Had dialysis the day prior. Potassium this morning 5.8. Ordered chest x-ray for subsequent eval Objective Data Objective Data Vital Signs: Vital Signs Temp Pulse Resp BP Pulse Ox O2 Del Method O2 Flow Rate 98.1 F 80 18 167/54 H 100 Nasal Cannula 2 05/20/25 04:11 05/20/25 04:11 05/20/25 04:11 05/20/25 04:11 05/20/25 04:11 05/20/25 04:11 05/20/25 04:11 FiO2 96 05/19/25 12:38 Oxygen Flow Rate (L/min) 2 Oxygen Delivery Method Nasal Cannula Weight: 53 kg Body Mass Index (BMI) 21.4 Intake & Output: Intake and Output for Last 24 Hours 05/18/25 05/19/25 05/20/25 23:59 23:59 23:59 Intake Total 360 / 360 Output Total 3300 / 3300 Balance -2940 / -2940 Lab / Micro Data 05/19/25 04:12 05/20/25 06:51 Labs: Laboratory Results - last 24 hr 05/19/25 14:16: POC Glucose 214 H 05/19/25 17:41: POC Glucose 197 H 05/19/25 21:34: POC Glucose 176 H 05/20/25 06:30: POC Glucose 111 H 05/20/25 06:51: Sodium 137, Potassium 5.8 H, Chloride 101, Carbon Dioxide 22.8, Anion Gap 14, BUN 31 H, Creatinine 5.72 H, Estim Creat Clear Calc 8.17 L*, Est GFR (MDRD) Non-Af 8 L, BUN/Creatinine Ratio 5.4 L, Glucose 125 H, Calcium 9.2, Phosphorus 4.4, Magnesium 2.8 H Micro: Microbiology 05/19/25 04:44 Mucosa - Nose SARS-CoV-2, Influenza & RSV (PCR) - Final Physical Exam Narrative GENERAL: Ill looking HEENT: Atraumatic; normocephalic EYES; Anicteric, Normal Conjunctiva NECK; supple, normal thyroid, RESPIRATORY: Diminished to auscultation CARDIOVASCULAR: Regular S1 S2, GI: soft, normoactive bowel sounds, : No Renal angle tenderness; EXTREMITIES: AV fistula right arm MUSCULOSKELETAL: no muscle wasting NEURO: Awake; no lateralizing signs. SKIN: No Rash PSYCH; Flat affect Assessment & Plan Assessment/Plan (1) CHF exacerbation: PLAN: Plan Patient is a 60-year-old lady with history of end-stage renal disease on hemodialysis presented with shortness of breath. Imaging studies demonstrated vascular congestion. 1.Acute congestive heart failure with preserved ejection fraction ? 2D echo from patient admission in January demonstrated estimated ejection fraction of 55-60 %. Overall normal LV systolic function No significant valvular abnormality noted. Patient has been admitted to a monitored bed started on strict input and output, daily weight, low-sodium diet furosemide and consult placed to nephrology for dialysis to manage patient fluid overload ? 05/20/2025; patient had dialysis the day prior received for repeat dialysis deferred to nephrology 2. Bilateral pleural effusion ? Secondary to patient congestive heart failure do expect improvement with treatment ? 05/20/2025; checks x-ray has been ordered for subsequent eval 3. End-stage renal disease on hemodialysis ? Dialysis days Wednesdays and Fridays. Consult placed to nephrology for dialysis orders. Ordered daily BMP for subsequent eval 4. Hypermagnesemia ? Secondary to ESRD do expect improvement with dialysis 5. Hyperkalemia ? Patient potassium on admission was 5.4 patient is scheduled to undergo dialysis 6. Hyperphosphatemia ? Secondary to renal bone disease. Management deferred to nephrology ? 05/20/2025; patient is on potassium binders 7. Diabetes mellitus type II Patient is on long-acting insulin as well as scheduled short acting insulin did continue with home regimen. In addition patient was placed on Accu-Cheks a.c. and at bedtime and covered with sliding scale insulin 8. Hypertension ? Blood pressure control not optimal, resume home medication added hydralazine as needed for systolic blood pressure greater than 160 9. Hypothyroidism ? Patient is on levothyroxine home dose continued 10. Depression with anxiety ? Per history patient currently not on any treatment 11. Dyslipidemia ?Patient is on statin therapy, continued at home dose 12. Anemia ? Secondary to chronic disorder monitoring H&H and transfuse if patient becomes symptomatic or hemoglobin falls below 7 13. DVT prophylaxis ? Subcu heparin Time spent in the patient's overall evaluation,decision-making process, review of diagnostic data, adjustment of management, discussion with other providers, nursing nursing and ancillary staff involved in patient's care documentation, 40 Minutes Charges/Coding Visit Charges Inpatient E&M: 56708 Subs Hosp L2
[2025-05-20 09:21] LABS: Differential Indicated SCAN CRITERIA MET
--- NOTE | 2025-05-20 09:21 | RAD_ITS ---
PROCEDURE: CHEST PA AND LATERAL 05/20/2025 REASON FOR EXAM: DYSPNEA TECHNIQUE: Procedure Code: RADCXR Modality: DX Procedure: CHEST PA AND LATERAL COMPARISON: Prior study dated May 19, 2025. FINDINGS: Hardware: EKG electrodes are seen. Stents seen in the left and right subclavian arteries. Heart: Heart size is upper limits of normal. Mediastinum: The mediastinal contour is unremarkable. Lungs: Persistent vascular congestion with small bilateral pleural effusions and bibasilar atelectasis worse at the left lung base. Persistent increased markings in the medial aspect of the right upper lobe. There has been improvement as compared to prior study. Bones: Degenerative changes are identified within the thoracic spine. RAD/Chest PA and Lateral IMPRESSION: Improved aeration as compared to prior study. Residual CHF with bilateral pleu ral effusions and bibasilar atelectasis more prominent at the left lung base seen. Reading Location: [place] [id number]
[2025-05-20] MEDS: Folic Acid/Vitamin B Comp W-C 1 Capsule 1 CAP PO (10:23)
[2025-05-20] MEDS: Heparin Injection 5,000 UNITS/ML Syringe 5000 UNITS SC (10:24)
[2025-05-20] MEDS: 0.9% Saline Lock 10 ML Syringe IV ×2 (14:10→16:03)
[2025-05-20] MEDS: SUCROFERRIC OXYHYDROXIDE 500 MG TAB.CHEW PO (16:16)
[2025-05-20] MEDS: Heparin Injection (Vial) 5,000 UNIT/ML VIAL 5000 UNIT SC (23:16)
[2025-05-21] VITALS (15 sets, daily range): BP systolic 134–158; BP diastolic 45–60; PULSE 61–88; RESP 13–17; TEMP 36.5–36.7; O2SAT 89–100; BMI 21.4; BMI 20.7
[2025-05-21 06:39] LABS: Anion Gap 11 (5-15); BUN 48 mg/dL (4-19); BUN/Creat Ratio 6.9 RATIO (10-20); Calcium,Total 8.7 mg/dL (7.6-11.0); Carbon Dioxide 23.1 mmol/L (21.0-32.0); Chloride 99 mmol/L (98-108); Estimated Creatinine Clearance 6.67 ml/min (50-250); Glucose 123 mg/dL (70-99); Potassium 6.3 mmol/L (3.3-5.1)
--- NOTE | 2025-05-21 06:59 | PCM.PN.HOSP ---
Reason for Visit Chief Complaint: Shortness of breath Subjective Subjective Patient seen still appears fatigued and weak. Currently being dialyzed. Diagnostic data at this a.m. is significant for potassium of 6.3 Objective Data Objective Data Vital Signs: Vital Signs Temp Pulse Resp BP Pulse Ox O2 Del Method O2 Flow Rate 97.8 F 63 14 146/46 H 100 Nasal Cannula 2 05/21/25 06:12 05/21/25 06:12 05/21/25 06:12 05/21/25 06:12 05/21/25 06:12 05/21/25 06:12 05/21/25 06:12 FiO2 96 05/19/25 12:38 Oxygen Flow Rate (L/min) 2 Oxygen Delivery Method Nasal Cannula Weight: 53 kg Body Mass Index (BMI) 21.4 Intake & Output: Intake and Output for Last 24 Hours 05/19/25 05/20/25 05/21/25 23:59 23:59 23:59 Intake Total 360 / 360 605 / 755 200 / 200 Output Total 3300 / 3300 Balance -2940 / -2940 605 / 755 200 / 200 Lab / Micro Data 05/20/25 08:10 05/21/25 05:32 Labs: Laboratory Results - last 24 hr 05/20/25 06:51: Sodium 137, Potassium 5.8 H, Chloride 101, Carbon Dioxide 22.8, Anion Gap 14, BUN 31 H, Creatinine 5.72 H, Estim Creat Clear Calc 8.17 L*, Est GFR (MDRD) Non-Af 8 L, BUN/Creatinine Ratio 5.4 L, Glucose 125 H, Calcium 9.2, Phosphorus 4.4, Magnesium 2.8 H 05/20/25 08:10: WBC 7.4, RBC 3.54 L, Hgb 10.5 L, Hct 33.0 L, MCV 93.2, MCH 29.7, MCHC 31.8 L, RDW Std Deviation 43.9, RDW Coeff of Alvina 12.8, Plt Count , MPV 11.3, Immature Gran % (Auto) 0.500, Neut % (Auto) 72.2 H, Lymph % (Auto) 19.1, [place] % (Auto) 6.0, Eos % (Auto) 1.3, Baso % (Auto) 0.9, Absolute Neuts (auto) 5.4, Absolute Lymphs (auto) 1.42, Nucleated RBC % 0, Platelet Estimate ADEQUATE, Hemoglobin A1c 7.4 H 05/20/25 11:57: POC Glucose 205 H 05/20/25 15:33: POC Glucose 57 L 05/20/25 15:54: POC Glucose 56 L 05/20/25 16:14: POC Glucose 118 H 05/20/25 17:32: POC Glucose 91 05/20/25 20:49: POC Glucose 205 H 05/20/25 23:10: POC Glucose 262 H 05/21/25 05:32: Sodium 134, Potassium 6.3 H*, Chloride 99, Carbon Dioxide 23.1, Anion Gap 11, BUN 48 H, Creatinine 7.01 H, Estim Creat Clear Calc 6.67 L*, Est GFR (MDRD) Non-Af 6 L, BUN/Creatinine Ratio 6.9 L, Glucose 123 H, Calcium 8.7 05/21/25 06:20: POC Glucose 101 Micro: Microbiology 05/19/25 04:44 Mucosa - Nose SARS-CoV-2, Influenza & RSV (PCR) - Final Radiography Diagnostic Testing: Radiology Impression Chest X-Ray 05/20/25 09:21 IMPRESSION: Improved aeration as compared to prior study. Residual CHF with bilateral pleural effusions and bibasilar atelectasis more prominent at the left lung base seen. Reading Location: [place] [id number] Physical Exam Narrative GENERAL: Ill looking HEENT: Atraumatic; normocephalic EYES; Anicteric, Normal Conjunctiva NECK; supple, normal thyroid, RESPIRATORY: Diminished to auscultation CARDIOVASCULAR: Regular S1 S2, GI: soft, normoactive bowel sounds, : No Renal angle tenderness; EXTREMITIES: AV fistula right arm MUSCULOSKELETAL: no muscle wasting NEURO: Awake; no lateralizing signs. SKIN: No Rash PSYCH; Flat affect Assessment & Plan Assessment/Plan (1) CHF exacerbation: PLAN: Plan Patient is a 60-year-old lady with history of end-stage renal disease on hemodialysis presented with shortness of breath. Imaging studies demonstrated vascular congestion. 1.Acute congestive heart failure with preserved ejection fraction ? 2D echo from patient admission in January demonstrated estimated ejection fraction of 55-60 %. Overall normal LV systolic function No significant valvular abnormality noted. Patient has been admitted to a monitored bed started on strict input and output, daily weight, low-sodium diet furosemide and consult placed to nephrology for dialysis to manage patient fluid overload ? 05/20/2025; patient had dialysis the day prior received for repeat dialysis deferred to nephrology ? 05/21/2025; patient progress on Xarelto being slow 2. Bilateral pleural effusion ? Secondary to patient congestive heart failure do expect improvement with treatment ? 05/20/2025; checks x-ray has been ordered for subsequent eval ? 05/21/2025; imaging studies the day prior did show improved aeration 3. End-stage renal disease on hemodialysis ? Dialysis days Wednesdays and Fridays. Consult placed to nephrology for dialysis orders. Ordered daily BMP for subsequent eval 4. Hypermagnesemia ? Secondary to ESRD do expect improvement with dialysis 5. Hyperkalemia ? Patient potassium on admission was 5.4 patient is scheduled to undergo dialysis ? 05/21/2025 potassium this a.m. 6.3. Being treated with dialysis plan is to repeat potassium level after her dialysis session this a.m. 6. Hyperphosphatemia ? Secondary to renal bone disease. Management deferred to nephrology ? 05/20/2025; patient is on potassium binders 7. Diabetes mellitus type II Patient is on long-acting insulin as well as scheduled short acting insulin did continue with home regimen. In addition patient was placed on Accu-Cheks a.c. and at bedtime and covered with sliding scale insulin 8. Hypertension ? Blood pressure control not optimal, resume home medication added hydralazine as needed for systolic blood pressure greater than 160 9. Hypothyroidism ? Patient is on levothyroxine home dose continued 10. Depression with anxiety ? Per history patient currently not on any treatment 11. Dyslipidemia ?Patient is on statin therapy, continued at home dose 12. Anemia ? Secondary to chronic disorder monitoring H&H and transfuse if patient becomes symptomatic or hemoglobin falls below 7 13. DVT prophylaxis ? Subcu heparin Time spent in the patient's overall evaluation,decision-making process, review of diagnostic data, adjustment of management, discussion with other providers, nursing nursing and ancillary staff involved in patient's care documentation, 40 Minutes Charges/Coding Visit Charges Inpatient E&M: 86319 Subs Hosp L2
[2025-05-21] MEDS: PureFlow B 2K Dialysis Soln 1 BAG 6 BAG PF (08:15)
[2025-05-21] MEDS: 0.9% Normal Saline 1,000 ML IV.SOLN. 1000 ML OPERA.SITE (08:15)
--- NOTE | 2025-05-21 10:20 | CASEMGMT ---
JESSICA MORALES Face to Face with patient for initial transition planning/care coordination assessment. JESSICA MORALES introduced self and role at [facility]. Patient lying in bed, alert and oriented. Patient willing to participate in assessment and is able to answer all questions appropriately. Care providers, pharmacy, and demographics verified. Strata: 3 PCP: Eduin Specialists: Jon, coating mixer supervisor; Training And Development Manager José Luis Preferred Pharmacy: [facility] Insurance: [facility] Dual, [facility] Prescription Benefit: yes Living Will/HPOA: none LNOK: Living Arrangements: Patient lives with in a single story home with no steps to enter. Patient is independent at home. Transportation: DME/HHC: Patient has raised toilet, shower chair, grab bars, wlaker, pulse ox, glucometer, and home oxygen through [employer]. Patient states her portable tanks are empty and is having difficulty getting in touch with [employer] to exchange tanks. JESSICA MORALES sent email to [employer] Liaison to inquire about oxygen order and tank exchange, awaiting response. Patient has been to [facility] in the past. Patient has had [facility] in the past. Patient attends Dialysis at [facility] MWF 0530. Patient wishes to discharge home, denies need for home health at this time. Patient states she has no further needs or concerns at this time. CM to follow for discharge planning needs that may arise. Disposition Plan: Patient to discharge home with family support and follow-up plans in place. Estefani BOLTON, RN, CM
--- NOTE | 2025-05-21 11:32 | PCM.PN.REN ---
Subjective Subjective Patient resting in bed. No overnight events. Seen on dialysis. Objective Data Objective Data Vital Signs: Vital Signs Temp Pulse Resp BP Pulse Ox O2 Del Method O2 Flow Rate 97.9 F 78 13 147/49 H 100 Nasal Cannula 2 05/21/25 07:40 05/21/25 10:47 05/21/25 10:47 05/21/25 10:47 05/21/25 09:47 05/21/25 10:47 05/21/25 10:47 FiO2 96 05/19/25 12:38 Oxygen Flow Rate (L/min) 2 Oxygen Delivery Method Nasal Cannula Weight: 53 kg Body Mass Index (BMI) 21.4 Intake & Output: Intake and Output for Last 24 Hours 05/19/25 05/20/25 05/21/25 23:59 23:59 23:59 Intake Total 360 / 360 605 / 755 200 / 200 Output Total 3300 / 3300 Balance -2940 / -2940 605 / 755 200 / 200 Lab / Micro Data 05/20/25 08:10 05/21/25 05:32 Labs: Laboratory Results - last 24 hr 05/20/25 11:57: POC Glucose 205 H 05/20/25 15:33: POC Glucose 57 L 05/20/25 15:54: POC Glucose 56 L 05/20/25 16:14: POC Glucose 118 H 05/20/25 17:32: POC Glucose 91 05/20/25 20:49: POC Glucose 205 H 05/20/25 23:10: POC Glucose 262 H 05/21/25 05:32: Sodium 134, Potassium 6.3 H*, Chloride 99, Carbon Dioxide 23.1, Anion Gap 11, BUN 48 H, Creatinine 7.01 H, Estim Creat Clear Calc 6.67 L*, Est GFR (MDRD) Non-Af 6 L, BUN/Creatinine Ratio 6.9 L, Glucose 123 H, Calcium 8.7 05/21/25 06:20: POC Glucose 101 Micro: Microbiology 05/19/25 04:44 Mucosa - Nose SARS-CoV-2, Influenza & RSV (PCR) - Final Physical Exam Narrative Alert and oriented x 3, no apparent distress S1 S2 RRR Lungs sound diminished. Patient on O2 nasal cannula Abdomen soft, nontender No edema to bilateral lower legs or feet Right forearm AV fistula accessed for hemodialysis Assessment & Plan Assessment/Plan (1) ESRD (end stage renal disease) on dialysis: (2) CHF exacerbation: (3) Hypertension: PLAN: Plan This is a 60-year-old female with past medical history significant for end-stage renal disease on hemodialysis Monday schedule at [facility] who presented to the emergency room with complaints of shortness of breath. Admitted for acute CHF, bilateral pleural effusions. Nephrology consulted as patient has history of ESRD and for dialysis management. - ESRD HD MWF; patient tolerated dialysis Monday with around 3.1 L fluid removal. On dialysis today 2K bath (K+ 6.3, patient on renal diet) over 4 hours and attempting around 3 L fluid removal as patient/blood pressure tolerates. Patient will have lowered dry weight by time of hospital discharge. Possible discharge today, checking potassium after dialysis. Patient states she will also let her outpatient hemodialysis center know her new weight. Assessment and plan reviewed with Dr. Vasques
[2025-05-21] MEDS: Aspirin E.C. 81 MG Tablet PO (11:57)
[2025-05-21] MEDS: Folic Acid/Vitamin B Comp W-C 1 Capsule 1 CAP PO (11:57)
[2025-05-21] MEDS: Heparin Injection (Vial) 5,000 UNIT/ML VIAL 5000 UNIT SC ×2 (12:00→12:09)
[2025-05-21] MEDS: Insulin Glargine-YFGN 100 UNIT/ML Pen 10 UNIT SC (12:01)
[2025-05-21 15:39] LABS: Anion Gap 11 (5-15); BUN 26 mg/dL (4-19); BUN/Creat Ratio 6.2 RATIO (10-20); Calcium,Total 9.4 mg/dL (7.6-11.0); Carbon Dioxide 24.9 mmol/L (21.0-32.0); Chloride 98 mmol/L (98-108); Estimated Creatinine Clearance 11.34 ml/min (50-250); Glucose 178 mg/dL (70-99); Potassium 5.3 mmol/L (3.3-5.1)
--- NOTE | 2025-05-21 15:43 | PCM.DC.SUM ---
Providers Date of Admission: 05/19/25 Date of Discharge: 05/21/25 Primary Care Physician: Dr. Maldonado Denny MD Consultations 05/19/25 08:07 Consult: Nephrology Routine Consulting Provider: [place] Reason for Consult: ERSD EMERGENT Consult: Yes MD Notified: Yes Date Notified: 05/19/25 Time Notified: 07:25 Method of Notification: ED Physician Initiated Reason For Visit: CHF Diagnosis Discharge Diagnosis (1) ESRD (end stage renal disease) on dialysis: Status: Chronic Code(s): N18.6 - End stage renal disease; Z99.2 - Dependence on renal dialysis (2) CHF exacerbation: Status: Chronic Code(s): I50.9 - Heart failure, unspecified (3) Hypertension: Status: Chronic Code(s): I10 - Essential (primary) hypertension Plan Patient is a 60-year-old lady with history of end-stage renal disease on hemodialysis presented with shortness of breath. Imaging studies demonstrated vascular congestion. 1.Acute congestive heart failure with preserved ejection fraction ? 2D echo from patient admission in January demonstrated estimated ejection fraction of 55-60 %. Overall normal LV systolic function No significant valvular abnormality noted. Patient has been admitted to a monitored bed started on strict input and output, daily weight, low-sodium diet furosemide and consult placed to nephrology for dialysis to manage patient fluid overload ? 05/20/2025; patient had dialysis the day prior received for repeat dialysis deferred to nephrology ? 05/21/2025; patient did improve with treatment decision was made to discharge patient home to continue with outpatient dialysis. Instructed to be compliant with her dialysis schedule 2. Bilateral pleural effusion ? Secondary to patient congestive heart failure do expect improvement with treatment ? 05/20/2025; checks x-ray has been ordered for subsequent eval ? 05/21/2025; imaging studies the day prior did show improved aeration 3. End-stage renal disease on hemodialysis ? Dialysis days Wednesdays and Fridays. Consult placed to nephrology for dialysis orders. Ordered daily BMP for subsequent eval 4. Hypermagnesemia ? Secondary to ESRD do expect improvement with dialysis 5. Hyperkalemia ? Patient potassium on admission was 5.4 patient is scheduled to undergo dialysis ? 05/21/2025 potassium this a.m. 6.3. Being treated with dialysis plan is to repeat potassium level after her dialysis session this a.m. ? Patient potassium after dialysis came down to 5.3 6. Hyperphosphatemia ? Secondary to renal bone disease. Management deferred to nephrology ? 05/20/2025; patient is on potassium binders 7. Diabetes mellitus type II Patient is on long-acting insulin as well as scheduled short acting insulin did continue with home regimen. In addition patient was placed on Accu-Cheks a.c. and at bedtime and covered with sliding scale insulin 8. Hypertension ? Blood pressure control not optimal, resume home medication added hydralazine as needed for systolic blood pressure greater than 160 9. Hypothyroidism ? Patient is on levothyroxine home dose continued 10. Depression with anxiety ? Per history patient currently not on any treatment 11. Dyslipidemia ?Patient is on statin therapy, continued at home dose 12. Anemia ? Secondary to chronic disorder monitoring H&H and transfuse if patient becomes symptomatic or hemoglobin falls below 7 13. DVT prophylaxis ? Subcu heparin Time spent in the patient's overall evaluation,decision-making process, review of diagnostic data, adjustment of management, discussion with other providers, nursing nursing and ancillary staff involved in patient's care documentation, 40 Minutes Medications at Discharge Home Medications aspirin 81 mg tablet,delayed release (Adult Low Dose Aspirin) 81 mg PO DAILY heart health 08/14/18 atorvastatin 40 mg tablet 40 mg PO QHS CHOLESTEROL 08/14/18 vitamin B complex-vitamin C-folic acid 0.8 mg tablet (Bethanie-Petey) 1 tab PO DAILY SUPPLEMENT 01/11/21 levothyroxine 125 mcg tablet 125 mcg PO DAILY THYROID 05/31/23 lisinopril 40 mg tablet 40 mg PO DAILY BLOOD PRESSURE 05/31/23 sucroferric oxyhydroxide 500 mg chewable tablet (Velphoro) 500 mg PO DAILY PHOSPHATE BINDER 05/31/23 amlodipine 10 mg tablet 10 mg PO DAILY blood pressure 01/28/25 clonidine HCl 0.2 mg tablet 0.2 mg PO BID blood pressure 01/28/25 insulin glargine 100 unit/mL (3 mL) subcutaneous pen (Lantus Solostar U-100 Insulin) 48 unit subcut QHS diabetes 01/28/25 insulin lispro 100 unit/mL subcutaneous pen 8 unit subcut .COMPLEX diabetes 01/28/25 metoprolol tartrate 25 mg tablet 25 mg PO Q12H blood pressure 01/28/25 sumatriptan succinate 50 mg tablet 50 mg PO BID PRN migraine 01/28/25 furosemide 40 mg tablet (Lasix) 40 mg PO DAILY #90 tabs 01/30/25 ondansetron 4 mg disintegrating tablet 4 mg PO Q8H PRN PRN Nausea #10 tabs 05/17/25 oxycodone 5 mg tablet 5 mg PO Q6H PRN pain 3 days #12 tabs 05/17/25 Physical Exam Narrative GENERAL: Ill looking HEENT: Atraumatic; normocephalic EYES; Anicteric, Normal Conjunctiva NECK; supple, normal thyroid, RESPIRATORY: Diminished to auscultation CARDIOVASCULAR: Regular S1 S2, GI: soft, normoactive bowel sounds, : No Renal angle tenderness; EXTREMITIES: AV fistula right arm MUSCULOSKELETAL: no muscle wasting NEURO: Awake; no lateralizing signs. SKIN: No Rash PSYCH; Flat affect Weight / BMI Weight Weight: 51 kg Body Mass Index (BMI) 20.7 ABG / Lab / Microbiology Data 05/20/25 08:10 05/21/25 15:01 Laboratory: Laboratory Results - last 24 hr 05/20/25 15:33: POC Glucose 57 L 05/20/25 15:54: POC Glucose 56 L 05/20/25 16:14: POC Glucose 118 H 05/20/25 17:32: POC Glucose 91 05/20/25 20:49: POC Glucose 205 H 05/20/25 23:10: POC Glucose 262 H 05/21/25 05:32: Sodium 134, Potassium 6.3 H*, Chloride 99, Carbon Dioxide 23.1, Anion Gap 11, BUN 48 H, Creatinine 7.01 H, Estim Creat Clear Calc 6.67 L*, Est GFR (MDRD) Non-Af 6 L, BUN/Creatinine Ratio 6.9 L, Glucose 123 H, Calcium 8.7 05/21/25 06:20: POC Glucose 101 05/21/25 11:27: POC Glucose 116 H 05/21/25 15:01: Sodium 134, Potassium 5.3 H, Chloride 98, Carbon Dioxide 24.9, Anion Gap 11, BUN 26 H, Creatinine 4.12 H, Estim Creat Clear Calc 11.34 L, Est GFR (MDRD) Non-Af 12 L, BUN/Creatinine Ratio 6.2 L, Glucose 178 H, Calcium 9.4 Microbiology: Microbiology 05/19/25 04:44 Mucosa - Nose SARS-CoV-2, Influenza & RSV (PCR) - Final D/C Instructions Discharge Activity: Return to Normal Activity Call your doctor if you observe: Fever of 101 or Higher, Shortness of breath, Fainting spells and Chest pain DC O2, CPAP, BIPAP Needs Home O2 Discharge instructions: No Meaningful Use Info Meaningful Use Meaningful Use Diagnoses (Choose all that apply): CHF CHF YVES/ARB ordered at discharge?: Yes Documented LVEF (%): 55 Discharge Plan Admission Admit Date/Time: 05/19/25 07:03 Attending Provider: Allan Ricketts Primary Care Provider: Maldonado Denny Consulting Providers: [place] Discharge Orders/Prescriptions Prescriptions: No Action aspirin [Adult Low Dose Aspirin] 81 mg tablet,delayed release (DR/EC) 81 mg PO DAILY atorvastatin 40 mg tablet 40 mg PO QHS Bethanie-Petey 0.8 mg Tablet 1 tab PO DAILY lisinopril 40 mg tablet 40 mg PO DAILY Velphoro 500 mg tablet,chewable 500 mg PO DAILY Patient Comments: Takes with dinner levothyroxine 125 mcg tablet 125 mcg PO DAILY sumatriptan succinate 50 mg tablet 50 mg PO BID PRN (Reason: migraine) clonidine HCl 0.2 mg tablet 0.2 mg PO BID amlodipine 10 mg tablet 10 mg PO DAILY insulin lispro 100 unit/mL insulin pen 8 unit SUBCUT .COMPLEX Rx Instructions: INJECT 8 UNITS SUBCUTANEOUSLY THREE TIMES DAILY BEFORE MEALS, Add 1 UNIT for each 50 mg/dl above 150. metoprolol tartrate 25 mg tablet 25 mg PO Q12H insulin glargine [Lantus Solostar U-100 Insulin] 100 unit/mL (3 mL) insulin pen 48 unit subcut QHS furosemide [Lasix] 40 mg tablet 40 mg PO DAILY Qty: 90 0RF ondansetron 4 mg tablet,disintegrating 4 mg PO Q8H PRN PRN (Reason: Nausea) Qty: 10 0RF oxycodone 5 mg tablet 5 mg PO Q6H PRN (Reason: pain) 3 Days Qty: 12 0RF Referrals / Follow Up: Maldonado Denny MD [Primary Care Provider, Internal Medicine] Disposition Disposition (needs filled in before D/C Order can be placed): Home, Self Care Charges/Coding Visit Charges Inpatient E&M: 99076 Disch Hosp >30min
--- NOTE | 2025-05-21 16:08 | CASEMGMT ---
Addendum entered by Anitra Faulkner 05/21/25 16:33: Pt nurse completing ambulatory pox. Pt does not require increase in oxygen rx. Original Note: TC to Jan at [facility] [place] to see if able to obtain portable tank for homegoing for pt. He states he will bring a tank down as pt is set up to exchange for tomorrow. Pt is aware of this. RN CM into pt room, pt sitting up in chair. Pt is aware that [facility] [place] liaison will bring portable oxygen tank prior to dc. Pt denies any homegoing needs. Discussed HHC and pt denies need for. Spoke with pt nurse who is aware of portable tank delivery to room. She will complete ambulatory pox soon.
[2025-05-21] MEDS: SUCROFERRIC OXYHYDROXIDE 500 MG TAB.CHEW PO (17:14)
== END 2025-05-21 18:53 | disposition home or self-care (01) ==
LOC: ED 07:08 → PCU 07:25
PROVIDERS: Admitting Provider Internal Medicine; Emergency Provider Emergency Medicine; PCP Internal Medicine; Visit Provider Internal Medicine
DX: I13.2 Hypertensive heart and chronic kidney disease with heart failure and with stage 5 chronic kidney disease, or end stage renal disease (principal); N18.6 End stage renal disease; I50.33 Acute on chronic diastolic (congestive) heart failure; Z79.4 Long term (current) use of insulin; E11.22 Type 2 diabetes mellitus with diabetic chronic kidney disease; Z79.890 Hormone replacement therapy; F41.8 Other specified anxiety disorders; J91.8 Pleural effusion in other conditions classified elsewhere; R09.02 Hypoxemia; E03.9 Hypothyroidism, unspecified; Z87.891 Personal history of nicotine dependence; Z99.2 Dependence on renal dialysis; Z79.82 Long term (current) use of aspirin; Z79.899 Other long term (current) drug therapy; Z99.81 Dependence on supplemental oxygen; K21.9 Gastro-esophageal reflux disease without esophagitis; E87.5 Hyperkalemia; E83.39 Other disorders of phosphorus metabolism; D63.8 Anemia in other chronic diseases classified elsewhere; E83.41 Hypermagnesemia
CPT/HCPCS: 36415; 71046; 80048; 82962; 83036; 83735; 84100; 85025; 87631; 90937; 93005; 94640; 96372; 96374; 96375; 96376; 97802; 99221; 99284; A4216; G0257; G0378; J1938; J2405

== ENCOUNTER 2025-05-31 19:29 | Inpatient (IN) | payer MEDICARE, MEDICAID, SELFPAY ==
--- OUTSIDE RECORDS SUMMARY | 2025-05-13 08:44 | XMS RPT_ITS ---
Author Name Auto Generated Organization OHIP Support Name Relationship Address Phone DANTE BRAVO Next of Kin Unknown [phone] OTHER Next of Kin Unknown Unavailable DANTE BRAVO Next of Kin [address] [place] [address] Unavailable EUGENE LAM Next of Kin [address] [place] [address] + NOT GIVEN Next of Kin Unknown Unavailable DANTE BRAVO Next of Kin Unknown [phone] OTHER Next of Kin Unknown Unavailable DANTE BRAVO Next of Kin Unknown [phone] OTHER Next of Kin Unknown Unavailable DANTE BRAVO Next of Kin Unknown [phone] OTHER Next of Kin Unknown Unavailable DANTE BRAVO Next of Kin Unknown [phone] OTHER Next of Kin Unknown Unavailable DANTE BRAVO Next of Kin Unknown [phone] OTHER Next of Kin Unknown Unavailable DANTE BRAVO Next of Kin Unknown [phone] OTHER Next of Kin Unknown Unavailable DANTE BRAVO Next of Kin Unknown [phone] OTHER Next of Kin Unknown Unavailable DANTE BRAVO Next of Kin Unknown [phone] OTHER Next of Kin Unknown Unavailable DANTE BRAVO Next of Kin Unknown [phone] OTHER Next of Kin Unknown Unavailable Care Team Providers Care Marine Diver Name Role Phone MALDONADO DENNY Attending Unavailable MALDONADO DENNY Primary Care Unavailable MALDONADO DENNY Attending Unavailable MALDONADO DENNY Primary Care Unavailable MALDONADO DENNY Primary Care Unavailable MALDONADO DENNY Attending Unavailable ANTHONY THOMAS Referring Unavailable MALDONADO DENNY Primary Care Unavailable ANTHONY THOMAS Referring Unavailable MALDONADO DENNY H Primary Care Unavailable ANTHONY THOMAS Attending Unavailable DENNY, MALDONADO Freeman Primary Care Unavailable JACEY GODINEZ M Referring Unavailable DENNY, MALDONADO Freeman Primary Care Unavailable GRETCHEN, JACEY M Referring Unavailable GRETCHEN, JACEY M Referring Unavailable DENNY, MALDONADO Freeman Primary Care Unavailable DENNY, MALDONADO Freeman Primary Care Unavailable DENNY, SHARRON Attending Unavailable EDUIN, MALDONADO Freeman Primary Care Unavailable ANTHONY THOMAS Admitting Unavailable ANTHONY THOMAS Attending Unavailable DENNY, MALDONADO Freeman Primary Care Unavailable ROBERT LALA Attending Unavailable DENNY, MALDONADO Freeman Primary Care Unavailable MANDIE BELTRAN Attending Unavailable DENNY, MALDONADO Freeman Primary Care Unavailable FER DURON Attending Unavailable ROLY MORALES Referring Unavailable EDUIN, MALDONADO [facility] Unavailable EDITA CASTELLON Attending Unavailable EDUIN, [facility] Unavailable EDITA CASTELLON Referring Unavailable ROLY MORALES Referring Unavailable EDUIN, [facility] Unavailable DENNY, MALDONADO [facility] Primary Care Unavailable KADE JONES Attending Unavailable EDITA CASTELLON Referring Unavailable DENNY, MALDONADO [facility] Care Unavailable DEN[facility], [facility]O [facility] Unavailable DENNY, MALDONADO [facility] Primary Care Unavailable DENNY, MALDONADO [facility] Primary Care Unavailable ROLY MORALES Referring Unavailable EDUIN, MALDONADO [facility] Unavailable MILADYS SHELTON MD Attending Unava ilable MILADYS SHELTON MD Primary Care Unava MILADYS Nayak MD Admitting Unava ilMALDONADO Keane MD Consulting Unavailable PROVIDER, UNKNOWN Consulting Unavailable PROBLEMS DATE TYPE CONDITION / CODE ATTENDING STATUS [facility] 01/18/2024 Active Other hyperlipid emia / E78.49(ICD-10) MALDONADO DENNY Active [facility] 01/18/2024 Active Primary hyperten ritika / I10(ICD-10) MALDONADO DENNY Active [facility] 06/20/2023 Active Hypothyroidism, unspecified type / E03.9(ICD-10) MALDONADO DENNY Active [facility] 05/13/2025 Active Physical deconditioning / R53.81(ICD-10) MALDONADO DENNY Active [facility] 05/13/2025 Active Encounter for immunization / Z23(ICD-10) MALDONADO DENNY Active [facility] 05/13/2025 Active Dyspnea on exert ion / R06.09(ICD-10) MALDONADO DENNY Active [facility] 05/13/2025 Active Need for vaccina tion / Z23(ICD-10) MALDONADO DENNY Active [facility] 01/18/2024 Active Hyperlipidemia, unspecified hyperlipidemia type / E78.5(ICD-10) [facility] Diastolic conges tive heart failure, unspecified HF chronicity (HCC) / I50.30(ICD-10) [facility] 02/20/2025 Active Stage 5 chronic kidney disease on chronic dialysis (HCC) / N18.6(ICD-10) [facility] 02/20/2025 Active Stage 5 chronic kidney disease on chronic dialysis (HCC) / Z99.2(ICD-10) [facility] 02/20/2025 Active Abnormal EKG / R94.31(ICD-10) DURON [facility] 02/20/2025 Active ASHD (arteriosclerotic heart disease) / I25.10(ICD-10) [facility] Hypoxia / R09.02(ICD-10) MALDONADO DENNY [facility] 02/06/2025 Active Anemia of chroni c renal failure, stage 5 (HCC) / N18.5(ICD-10) MALDONADO DENNY [facility] 02/06/2025 Active Anemia of chroni c renal failure, stage 5 (HCC) / D63.1(ICD-10) MALDONADO DENNY Active [facility] 01/18/2024 Active ESRD on dialysis (HCC) / N18.6(ICD-10) MALDONADO DENNY [facility] 01/18/2024 Active ESRD on dialysis (HCC) / Z99.2(ICD-10) MALDONADO DENNY Active [facility] 11/09/2023 Active Congestive heart failure, unspecified HF chronicity, unspecified heart failure type (HCC) / I50.9(ICD-10) MALDONADO DENNY [facility] 01/18/2024 Active Controlled type 2 diabetes mellitus without complication, with long-term current use of insulin ([facility]) / E11.9(ICD-10) ROBERT LALA [facility] 01/18/2024 Active Controlled type 2 diabetes mellitus without complication, with long-term current use of insulin (HCC) / Z79.4(ICD-10) SPIKE ROBERT [facility] 01/02/2025 Active Status post corn eal transplant / Z94.7(ICD-10) SPIKE ROBERT [facility] 12/20/2024 Admitting Diagnosis Erosion and ectropion of cervix uteri / N86(ICD-10) [facility] 12/20/2024 Admitting Diagnosis Type 2 diabetes mellitus with unspecified complications / E11.8(ICD-10) [facility] 12/03/2024 Active Abnormal screeni ng mammogram / R92.8(ICD-10) [facility] 07/25/2024 Admitting Diagnosis End stage renal disease (Multi) / N18.6(ICD-10) KADE JONES [facility] 07/25/2024 Admitting Diagnosis Encounter for therapeutic drug level monitoring / Z51.81(ICD-10) KADE JONES [facility] 07/25/2024 Admitting Diagnosis Personal history of transient ischemic attack (TIA), and cerebral infarction without residual deficits / Z86.73(ICD-10) [facility] 07/25/2024 Admitting Diagnosis Other specified symptoms and signs involving the circulatory and respiratory systems / R09.89(ICD-10) [facility] 07/23/2024 Admitting Diagnosis Atherosclerotic heart disease of [place] coronary artery without angina pectoris / I25.10(ICD-10) EDITA CASTELLON [facility] 07/23/2024 Admitting Diagnosis Awaiting organ transplant status / Z76.82(ICD-10) EDITA CASTELLON [facility] 07/23/2024 Admitting Diagnosis Encounter for preprocedural cardiovascular examination / Z01.810(ICD-10) EDITA CASTELLON [facility] 07/23/2024 Admitting Diagnosis Hypertensive heart disease without heart failure / I11.9(ICD-10) EDITA CASTELLON [facility] 07/11/2024 Admitting Diagnosis Encounter for other preprocedural examination / Z01.818(ICD-10) NA [facility] 07/11/2024 Active Encounter for screening mammogram for breast cancer / Z12.31(ICD-10) NA [facility] 06/02/2024 Active History of echocardiogram / Z92.89(ICD-10) [facility] 01/18/2024 Active Mixed hyperlipid emia / E78.2(ICD-10) [facility] 07/18/2023 Active ASCVD (arteriosclerotic cardiovascular disease) / I25.10(ICD-10) [facility] 06/11/2024 Active History of cardiovascular stress test / Z92.89(ICD-10) [facility] 06/11/2024 Active History of left heart catheterization (LHC) / Z98.890(ICD-10) [facility] 06/11/2024 Active History of carot id artery stenosis / Z86.79(ICD-10) [facility] 06/11/2024 Active History of diabe ericka mellitus / Z86.39(ICD-10) [facility] 06/11/2024 Active Former smoker / Z87.891(ICD-10) [facility] PROCEDURES No Procedure Records Found RESULTS PROGRESS Observed: 05/13/2025 9:40 AM Status: COMPLETED Source: [facility] HNO ID: [id number] Author: MALDONADO DENNY MD Service: ? Author Type: Physician Type: Progress Notes Filed: 05/13/2025 09:51 Note Text: Subjective Sandy Bravo is a 60 year old female here with spouse She had a 6 minute walk test for pre kidney transplant evaluation at [facility] on 04/17/25. She walked 198 m with 2 LPM oxygen. Predicted was 512 m and so she only achieved 39% or predicted. She received a letter she did not qualify due to her poor physical performance. ACTIVE PROBLEM LIST Diabetes Mellitus (Hcc) Htn (Hypertension) Hyperlipidemia Hypothyroid Ashd (Arteriosclerotic Heart Disease) Proteinuria Stage 5 Chronic Kidney Disease On Chronic Dialysis (Hcc) VT (ventricular tachycardia) Tubular Adenoma of Colon Secondary Hyperparathyroidism of Renal Origin (Hcc) Abnormal Ekg Hypertrophic Cardiomyopathy (Hcc) Congestive Heart Failure (Hcc) History of Echocardiogram History of Stress Test Encounter for Screening for Stenosis of Carotid Artery Arteriovenous Fistula, Acquired Peripheral Arterial Disease Migraine Without Aura, Not Intractable, Without Status Migrainosus Anemia of Chronic Renal Failure, Stage 5 (Hcc) Hypoxia 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 cloNIDine HCl (CATAPRES) 0.1 mg tablet Take 1 tablet by mouth daily at bedtime. insulin lispro (HUMALOG KWIKPEN INSULIN) 100 unit/mL Inject 8 Units subcutaneously three times a day before meals. Add 1 unit for each 50 mg/dl above 150 insulin needles, DISPOSABLE, (PEN NEEDLE) 31 gauge x 5/16 Use one needle per dose four times per day. SUMAtriptan (IMITREX) 50 mg tablet Take one tablet by mouth at onset of migraine. May repeat in 2 hours if ineffective insulin glargine (LANTUS SOLOSTAR U-100 INSULIN) 100 unit/mL (3 mL) Inject 48 Units subcutaneously daily at bedtime. nitroglycerin sublingual (NITROQUICK) 0.4 mg SL tablet Dissolve 1 tablet under the tongue every 5 minutes as needed. ferric citrate 210 mg iron tab Take 1 tablet by mouth once daily. docusate sodium (COLACE) 100 mg capsule Take 1 capsule by mouth twice daily as needed for Constipation. NEPHRO-SONDRA 0.8 mg tab Take 1 tablet by mouth once daily. blood sugar diagnostic (BLOOD GLUCOSE TEST) test strip Test blood sugar(s) 3 times daily. Dx: Type 2 DM - Uncontrolled E11.65 Insulin: Yes Blood-Glucose Meter (BLOOD GLUCOSE MONITORING) monitoring kit 1 Each three times daily. E11.65. On insulin. aspirin, enteric coated (ASPIRIN, ENTERIC COATED) 81 mg EC tablet Take 1 tablet by mouth once daily. amLODIPine (NORVASC) 10 mg tablet Take 1 tablet by mouth once daily. atorvastatin (LIPITOR) 40 mg tablet Take 1 tablet by mouth daily at bedtime. levothyroxine (SYNTHROID) 125 mcg tablet Take 1 tablet by mouth once daily. Take on empty stomach. For Thyroid lisinopril (ZESTRIL) 40 mg tablet Take 1 tablet by mouth once daily. cloNIDine HCl (CATAPRES) 0.2 mg tablet Take 1 tablet by mouth two times a day. furosemide (LASIX) 40 mg tablet Take 1 tablet by mouth once daily. No current facility-administered medications for this visit. Review of Systems Constitutional: Positive for unexpected weight change. Negative for fatigue. Respiratory: Positive for shortness of breath. Negative for cough and wheezing. Cardiovascular: Positive for leg swelling. Negative for chest pain and palpitations. Gastrointestinal: Negative. Neurological: Negative for dizziness and headaches. Objective BP 130/56 (BP Site: Left Arm, BP Position: Sitting, BP Cuff Size: Large Adult) Pulse 64 Temp 36.6 ?C (97.8 ?F) (Temporal) Wt 56.5 kg (124 lb 9 oz) SpO2 98% BMI 22.78 kg/m? Physical Exam Constitutional: General: She is not in acute distress. Appearance: She is not ill-appearing or diaphoretic. Eyes: Conjunctiva/sclera: Conjunctivae normal. Neck: Vascular: No JVD. Cardiovascular: Rate and Rhythm: Normal rate and regular rhythm. Heart sounds: S1 normal and S2 normal. No murmur heard. Pulmonary: Effort: No respiratory distress. Breath sounds: No wheezing or rales. Comments: On room air. Abdominal: General: There is no distension. Musculoskeletal: Right lower le+ Pitting Edema present. Left lower le+ Pitting Edema present. Neurological: General: No focal deficit present. Mental Status: She is alert. Motor: Weakness present. Gait: Gait normal. ASSESSMENT/PLAN: 1. Physical deconditioning - ICD9: 799.3, ICD10: R53.81 (primary diagnosis) She will be referred to her local hospital for therapy. - CONSULT TO PHYSICAL THERAPY 2. Encounter for immunization - ICD9: V03.89, ICD10: Z23 - INFLUENZA VACCINE, PRSV FREE, AGE 6MO-64YR, TRIVALENT (AFLURIA, FLUARIX, FLULAVAL, FLUVIRIN, FLUZONE) 3. Primary hypertension - ICD9: 401.9, ICD10: I10 - Controlled - Continue current medications - AMLODIPINE 10 MG TABLET - LISINOPRIL 40 MG TABLET - CLONIDINE HCL 0.2 MG TABLET 4. Other hyperlipidemia - ICD9: 272.4, ICD10: E78.49 - Controlled. - ATORVASTATIN 40 MG TABLET 5. Hypothyroidism, unspecified type - ICD9: 244.9, ICD10: E03.9 - continue current dose of Synthroid. - LEVOTHYROXINE 125 MCG TABLET 6. Dyspnea on exertion - ICD9: 786.09, ICD10: R06.09 - CONSULT TO PHYSICAL THERAPY 7. Congestive heart failure, unspecified HF chronicity, unspecified heart failure type (HCC) - ICD9: 428.0, ICD10: I50.9 - Compensated - Continue current medications - FUROSEMIDE 40 MG TABLET 8. Hypoxia - ICD9: 799.02, ICD10: R09.02 - Continue oxygen PRN. - CONSULT TO PHYSICAL THERAPY 9. Need for vaccination - ICD9: V05.9, ICD10: Z23 - HEP B VACCINE, 3-DOSE, AGE 20+ YR (ENGERIX-B, RECOMBIVAX HB) Maldonado Denny MD CNOV Observed: 05/13/2025 9:00 AM Status: COMPLETED Source: [facility] Office Visit (INTMWS) SANDY BRAVO ([id number]) 1965 F Date Time Provider Department 05/13/25 9:00 AM MALDONADO DENNY INTMWS During your visit today, we recorded the following information about you: Temperature Pulse Blood pressure Weight 97.8 degrees 64/minute 130/56 56.5 kg Maldonado Denny MD 05/13/2025 9:51 AM Signed Subjective Sandy Bravo is a 60 year old female here with spouse She had a 6 minute walk test for pre kidney transplant evaluation at [facility] on 04/17/25. She walked 198 m with 2 LPM oxygen. Predicted was 512 m and so she only achieved 39% or predicted. She received a letter she did not qualify due to her poor physical performance. ACTIVE PROBLEM LIST Diabetes Mellitus (Hcc) Htn (Hypertension) Hyperlipidemia Hypothyroid Ashd (Arteriosclerotic Heart Disease) Proteinuria Stage 5 Chronic Kidney Disease On Chronic Dialysis (Hcc) VT (ventricular tachycardia) Tubular Adenoma of Colon Secondary Hyperparathyroidism of Renal Origin (Hcc) Abnormal Ekg Hypertrophic Cardiomyopathy (Hcc) Congestive Heart Failure (Hcc) History of Echocardiogram History of Stress Test Encounter for Screening for Stenosis of Carotid Artery Arteriovenous Fistula, Acquired Peripheral Arterial Disease Migraine Without Aura, Not Intractable, Without Status Migrainosus Anemia of Chronic Renal Failure, Stage 5 (Hcc) Hypoxia 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 cloNIDine HCl (CATAPRES) 0.1 mg tablet Take 1 tablet by mouth daily at bedtime. insulin lispro (HUMALOG KWIKPEN INSULIN) 100 unit/mL Inject 8 Units subcutaneously three times a day before meals. Add 1 unit for each 50 mg/dl above 150 insulin needles, DISPOSABLE, (PEN NEEDLE) 31 gauge x 5/16 Use one needle per dose four times per day. SUMAtriptan (IMITREX) 50 mg tablet Take one tablet by mouth at onset of migraine. May repeat in 2 hours if ineffective insulin glargine (LANTUS SOLOSTAR U-100 INSULIN) 100 unit/mL (3 mL) Inject 48 Units subcutaneously daily at bedtime. nitroglycerin sublingual (NITROQUICK) 0.4 mg SL tablet Dissolve 1 tablet under the tongue every 5 minutes as needed. ferric citrate 210 mg iron tab Take 1 tablet by mouth once daily. docusate sodium (COLACE) 100 mg capsule Take 1 capsule by mouth twice daily as needed for Constipation. NEPHRO-SONDRA 0.8 mg tab Take 1 tablet by mouth once daily. blood sugar diagnostic (BLOOD GLUCOSE TEST) test strip Test blood sugar(s) 3 times daily. Dx: Type 2 DM - Uncontrolled E11.65 Insulin: Yes Blood-Glucose Meter (BLOOD GLUCOSE MONITORING) monitoring kit 1 Each three times daily. E11.65. On insulin. aspirin, enteric coated (ASPIRIN, ENTERIC COATED) 81 mg EC tablet Take 1 tablet by mouth once daily. amLODIPine (NORVASC) 10 mg tablet Take 1 tablet by mouth once daily. atorvastatin (LIPITOR) 40 mg tablet Take 1 tablet by mouth daily at bedtime. levothyroxine (SYNTHROID) 125 mcg tablet Take 1 tablet by mouth once daily. Take on empty stomach. For Thyroid lisinopril (ZESTRIL) 40 mg tablet Take 1 tablet by mouth once daily. cloNIDine HCl (CATAPRES) 0.2 mg tablet Take 1 tablet by mouth two times a day. furosemide (LASIX) 40 mg tablet Take 1 tablet by mouth once daily. No current facility-administered medications for this visit. Review of Systems Constitutional: Positive for unexpected weight change. Negative for fatigue. Respiratory: Positive for shortness of breath. Negative for cough and wheezing. Cardiovascular: Positive for leg swelling. Negative for chest pain and palpitations. Gastrointestinal: Negative. Neurological: Negative for dizziness and headaches. Objective BP 130/56 (BP Site: Left Arm, BP Position: Sitting, BP Cuff Size: Large Adult) Pulse 64 Temp 36.6 ?C (97.8 ?F) (Temporal) Wt 56.5 kg (124 lb 9 oz) SpO2 98% BMI 22.78 kg/m? Physical Exam Constitutional: General: She is not in acute distress. Appearance: She is not ill-appearing or diaphoretic. Eyes: Conjunctiva/sclera: Conjunctivae normal. Neck: Vascular: No JVD. Cardiovascular: Rate and Rhythm: Normal rate and regular rhythm. Heart sounds: S1 normal and S2 normal. No murmur heard. Pulmonary: Effort: No respiratory distress. Breath sounds: No wheezing or rales. Comments: On room air. Abdominal: General: There is no distension. Musculoskeletal: Right lower le+ Pitting Edema present. Left lower le+ Pitting Edema present. Neurological: General: No focal deficit present. Mental Status: She is alert. Motor: Weakness present. Gait: Gait normal. ASSESSMENT/PLAN: 1. Physical deconditioning - ICD9: 799.3, ICD10: R53.81 (primary diagnosis) She will be referred to her local hospital for therapy. - CONSULT TO PHYSICAL THERAPY 2. Encounter for immunization - ICD9: V03.89, ICD10: Z23 - INFLUENZA VACCINE, PRSV FREE, AGE 6MO-64YR, TRIVALENT (AFLURIA, FLUARIX, FLULAVAL, FLUVIRIN, FLUZONE) 3. Primary hypertension - ICD9: 401.9, ICD10: I10 - Controlled - Continue current medications - AMLODIPINE 10 MG TABLET - LISINOPRIL 40 MG TABLET - CLONIDINE HCL 0.2 MG TABLET 4. Other hyperlipidemia - ICD9: 272.4, ICD10: E78.49 - Controlled. - ATORVASTATIN 40 MG TABLET 5. Hypothyroidism, unspecified type - ICD9: 244.9, ICD10: E03.9 - continue current dose of Synthroid. - LEVOTHYROXINE 125 MCG TABLET 6. Dyspnea on exertion - ICD9: 786.09, ICD10: R06.09 - CONSULT TO PHYSICAL THERAPY 7. Congestive heart failure, unspecified HF chronicity, unspecified heart failure type (HCC) - ICD9: 428.0, ICD10: I50.9 - Compensated - Continue current medications - FUROSEMIDE 40 MG TABLET 8. Hypoxia - ICD9: 799.02, ICD10: R09.02 - Continue oxygen PRN. - CONSULT TO PHYSICAL THERAPY 9. Need for vaccination - ICD9: V05.9, ICD10: Z23 - HEP B VACCINE, 3-DOSE, AGE 20+ YR (ENGERIX-B, RECOMBIVAX HB) Maldonado Denny MD Allergies As of Date: 05/13/2025 Noted Allergy Reaction CODEINE 12/11/2006 8 - GI Upset LATEX 03/22/2012 4 - Hives Comments: 2006 had reaction after surgery PENICILLINS 12/11/2006 7 - Swelling CHLORHEXIDINE 11/26/2018 2 - Rash Date Reviewed: 05/13/2025 Reviewed by: Edie Samayoa LPN - Fully Assessed Primary Visit Diagnosis:Physical deconditioning [R53.81] Other Visit Diagnoses:Encounter for immunization [Z23] Primary hypertension [I10] Other hyperlipidemia [E78.49] Hypothyroidism, unspecified type [E03.9] Dyspnea on exertion [R06.09] Congestive heart failure, unspecified HF chronicity, unspecified heart failure type (HCC) [I50.9] Hypoxia [R09.02] Need for vaccination [Z23] Order(s):INFLUENZA VACCINE, PRSV FREE, AGE 6MO-64YR, TRIVALENT (AFLURIA, FLUARIX, FLULAVAL, FLUVIRIN, FLUZONE) [[id number]] Order #: [id number] amLODIPine (NORVASC) 10 mg tabletTake 1 tablet by mouth once daily.Disp: 90 tabletRfl: 1 atorvastatin (LIPITOR) 40 mg tabletTake 1 tablet by mouth daily at bedtime.Disp: 90 tabletRfl: 1 levothyroxine (SYNTHROID) 125 mcg tabletTake 1 tablet by mouth once daily. Take on empty stomach. For ThyroidDisp: 90 tabletRfl: 1 lisinopril (ZESTRIL) 40 mg tabletTake 1 tablet by mouth once daily.Disp: 90 tabletRfl: 1 cloNIDine HCl (CATAPRES) 0.2 mg tabletTake 1 tablet by mouth two times a day.Disp: 60 tabletRfl: 5 furosemide (LASIX) 40 mg tabletTake 1 tablet by mouth once daily.Disp: 90 tabletRfl: 1 CONSULT TO PHYSICAL THERAPY [[id number]] Order #: [id number]: 1 FUTURE HEP B VACCINE, 3-DOSE, AGE 20+ YR (ENGERIX-B, RECOMBIVAX HB) [[id number]] Order #: [id number] Prescriptions as of 05/13/2025 - amLODIPine (NORVASC) 10 mg tablet Take 1 tablet by mouth once daily. - atorvastatin (LIPITOR) 40 mg tablet Take 1 tablet by mouth daily at bedtime. - levothyroxine (SYNTHROID) 125 mcg tablet Take 1 tablet by mouth once daily. Take on empty stomach. For Thyroid - lisinopril (ZESTRIL) 40 mg tablet Take 1 tablet by mouth once daily. - cloNIDine HCl (CATAPRES) 0.2 mg tablet Take 1 tablet by mouth two times a day. - furosemide (LASIX) 40 mg tablet Take 1 tablet by mouth once daily. - metoprolol tartrate, short acting, (LOPRESSOR) 25 mg tablet Take 1 tablet by mouth every 12 hours. - cloNIDine HCl (CATAPRES) 0.1 mg tablet Take 1 tablet by mouth daily at bedtime. - insulin lispro (HUMALOG KWIKPEN INSULIN) 100 unit/mL Inject 8 Units subcutaneously three times a day before meals. Add 1 unit for each 50 mg/dl above 150 - insulin needles, DISPOSABLE, (PEN NEEDLE) 31 gauge x 5/16 Use one needle per dose four times per day. - SUMAtriptan (IMITREX) 50 mg tablet Take one tablet by mouth at onset of migraine. May repeat in 2 hours if ineffective - insulin glargine (LANTUS SOLOSTAR U-100 INSULIN) 100 unit/mL (3 mL) Inject 48 Units subcutaneously daily at bedtime. - nitroglycerin sublingual (NITROQUICK) 0.4 mg SL tablet Dissolve 1 tablet under the tongue every 5 minutes as needed. - ferric citrate 210 mg iron tab Take 1 tablet by mouth once daily. - docusate sodium (COLACE) 100 mg capsule Take 1 capsule by mouth twice daily as needed for Constipation. - NEPHRO-SONDRA 0.8 mg tab Take 1 tablet by mouth once daily. - blood sugar diagnostic (BLOOD GLUCOSE TEST) test strip Test blood sugar(s) 3 times daily. Dx: Type 2 DM - Uncontrolled E11.65 Insulin: Yes - Blood-Glucose Meter (BLOOD GLUCOSE MONITORING) monitoring kit 1 Each three times daily. E11.65. On insulin. - aspirin, enteric coated (ASPIRIN, ENTERIC COATED) 81 mg EC tablet Take 1 tablet by mouth once daily. Problem List As Of Date 05/13/2025 Noted Resolved Calculus of ureter [N20.1] 06/12/2007 03/22/2012 Urinary tract infection, site not specified [N3*06/12/2007 03/22/2012 Renal colic [N23] 06/12/2007 03/22/2012 Diabetes mellitus (HCC) [E11.9] 09/04/1985 HTN (hypertension) [I10] 09/04/2001 Hyperlipidemia [E78.5] 09/04/1999 Depression [F32.A] 09/04/2006 06/12/2023 Hypothyroid [E03.9] 03/30/2012 ASHD (arteriosclerotic heart disease) [I25.10] 05/10/2012 Proteinuria [R80.9] 06/14/2013 CKD (chronic kidney disease) stage 3, GFR 30-59*07/17/2013 05/02/2017 CKD (chronic kidney disease) stage 4, GFR 15-29*04/05/2017 03/02/2018 CKD (chronic kidney disease) stage V requiring *03/01/2018 08/29/2019 Stage 5 chronic kidney disease on chronic dialy*05/16/2019 VT (ventricular tachycardia) [I47.20] 05/17/2019 Steal syndrome dialysis vascular access (HCC) [*05/17/2019 02/23/2023 ESRD (end stage renal disease) ([facility]) [N18.6] 04/21/2021 10/27/2023 Ventral hernia with obstruction, without gangre*12/09/2021 06/29/2023 Tubular adenoma of colon [D12.6] 11/15/2022 Hyperkalemia [E87.5] 06/20/2023 09/14/2023 Secondary hyperparathyroidism of renal origin (*06/20/2023 Abnormal EKG [R94.31] 06/20/2023 Hypertrophic cardiomyopathy (HCC) [I42.2] 11/08/2023 Congestive heart failure ([facility]) [I50.9] History of echocardiogram [Z92.89] 11/07/2023 History of stress test [Z92.89] 06/21/2023 Encounter for screening for stenosis of carotid*03/27/2023 Arteriovenous fistula, acquired ([facility]) [I77.0] 06/13/2024 Peripheral arterial disease ([facility]) [I73.9] 07/10/2024 Migraine without aura, not intractable, without*05/21/2021 Anemia of chronic renal failure, stage 5 (HCC) *02/06/2025 Hypoxia [R09.02] 02/06/2025 Hypertensive left ventricular hypertrophy with *02/21/2025 Prescriptions ordered this encounter Disp Refills Start End AMLODIPINE 10 MG TABLET 90 t* 1 05/13/2025 Route: PO Sig: Take 1 tablet by mouth once daily. ATORVASTATIN 40 MG TABLET 90 t* 1 05/13/2025 Route: PO Sig: Take 1 tablet by mouth daily at bedtime. LEVOTHYROXINE 125 MCG TABLET 90 t* 1 05/13/2025 Route: PO Sig: Take 1 tablet by mouth once daily. Take on empty stomach. For Thyroid LISINOPRIL 40 MG TABLET 90 t* 1 05/13/2025 Route: PO Sig: Take 1 tablet by mouth once daily. CLONIDINE HCL 0.2 MG TABLET 60 t* 5 05/13/2025 Route: PO Sig: Take 1 tablet by mouth two times a day. FUROSEMIDE 40 MG TABLET 90 t* 1 05/13/2025 Route: PO Sig: Take 1 tablet by mouth once daily. Medications Discontinued During This Encounter Prescriptions - cloNIDine HCl (CATAPRES) 0.2 mg tablet (Discontinued) Take 1 tablet by mouth two times a day. - atorvastatin (LIPITOR) 40 mg tablet (Discontinued) Take 1 tablet by mouth daily at bedtime. - amLODIPine (NORVASC) 10 mg tablet (Discontinued) Take 1 tablet by mouth once daily. - levothyroxine (SYNTHROID) 125 mcg tablet (Discontinued) Take 1 tablet by mouth once daily. Take on empty stomach. For Thyroid - lisinopril (ZESTRIL) 40 mg tablet (Discontinued) Take 1 tablet by mouth once daily. - furosemide (LASIX) 40 mg tablet (Discontinued) Take 40 mg by mouth once daily. Level of Service: OFFICE/OUTPATIENT ESTABLISHED [facility] 30 MIN [25333] Additional E/M codes: VISIT CPLX INHERENT EANDM ASSOC WITH MED * Follow-up and Disposition History for Encounter Date Provider Department Center 05/13/2025 [id number] DENNY [facility] Encounter Status:Closed by MALDONADO DENNY on 05/13/25 [facility] Observed: 04/23/2025 12:00 AM Status: COMPLETED Source: [facility] Telephone ([place]) SANDY BRAVO ([id number]) 1965 F Date Time Provider Department 04/23/25 MALDONADO DENNY INTMWS During your visit today, we recorded the following information about you: Chris Pierce RN 04/23/2025 1:24 PM Signed Pt reports she spoke with kidney transplant team today, and has been trying to get a kidney transplant. Reports the transplant team tells her she is not strong enough. Pt asking if pcp can order PT for her to help her get strong enough? Pt reports she is losing weight and she is not trying to. States she is eating. Reports right now she weighs 124 #. Reports she hasn't been sick so doesn't know what is causing her to lose weight. Pt reports she gets Shortness of Breath sometimes. Reports she is on 2LO2 prn, and wears it when she needs it which does help with shortness of breath. Reports her next appt with pcp is 06/10/25. Maldonado Denny MD 04/23/2025 5:20 PM Signed Appointment needed 40 minutes. Edie Samayoa LPN 04/24/2025 8:16 AM Signed Patient scheduled, 04/29/2025 for 40 minutes. Edie Samayoa LPN Allergies As of Date: 04/23/2025 Noted Allergy Reaction CODEINE 12/11/2006 8 - GI Upset LATEX 03/22/2012 4 - Hives Comments: 2006 had reaction after surgery PENICILLINS 12/11/2006 7 - Swelling CHLORHEXIDINE 11/26/2018 2 - Rash Date Reviewed: 02/20/2025 Reviewed by: Tonny Benoit MA - Fully Assessed Reason for Visit: Patient Question r/t kidney transplant [Other] Prescriptions as of 04/24/2025 - metoprolol tartrate, short acting, (LOPRESSOR) 25 mg tablet Take 1 tablet by mouth every 12 hours. - cloNIDine HCl (CATAPRES) 0.1 mg tablet Take 1 tablet by mouth daily at bedtime. - furosemide (LASIX) 40 mg tablet Take 40 mg by mouth once daily. - amLODIPine (NORVASC) 10 mg tablet Take 1 tablet by mouth once daily. - insulin lispro (HUMALOG KWIKPEN INSULIN) 100 unit/mL Inject 8 Units subcutaneously three times a day before meals. Add 1 unit for each 50 mg/dl above 150 - insulin needles, DISPOSABLE, (PEN NEEDLE) 31 gauge x 5/16 Use one needle per dose four times per day. - levothyroxine (SYNTHROID) 125 mcg tablet Take 1 tablet by mouth once daily. Take on empty stomach. For Thyroid - lisinopril (ZESTRIL) 40 mg tablet Take 1 tablet by mouth once daily. - SUMAtriptan (IMITREX) 50 mg tablet Take one tablet by mouth at onset of migraine. May repeat in 2 hours if ineffective - insulin glargine (LANTUS SOLOSTAR U-100 INSULIN) 100 unit/mL (3 mL) Inject 48 Units subcutaneously daily at bedtime. - atorvastatin (LIPITOR) 40 mg tablet Take 1 tablet by mouth daily at bedtime. - cloNIDine HCl (CATAPRES) 0.2 mg tablet Take 1 tablet by mouth two times a day. - nitroglycerin sublingual (NITROQUICK) 0.4 mg SL tablet Dissolve 1 tablet under the tongue every 5 minutes as needed. - ferric citrate 210 mg iron tab Take 1 tablet by mouth once daily. - docusate sodium (COLACE) 100 mg capsule Take 1 capsule by mouth twice daily as needed for Constipation. - NEPHRO-SONDRA 0.8 mg tab Take 1 tablet by mouth once daily. - blood sugar diagnostic (BLOOD GLUCOSE TEST) test strip Test blood sugar(s) 3 times daily. Dx: Type 2 DM - Uncontrolled E11.65 Insulin: Yes - Blood-Glucose Meter (BLOOD GLUCOSE MONITORING) monitoring kit 1 Each three times daily. E11.65. On insulin. - aspirin, enteric coated (ASPIRIN, ENTERIC COATED) 81 mg EC tablet Take 1 tablet by mouth once daily. Problem List As Of Date 04/23/2025 Noted Resolved Calculus of ureter [N20.1] 06/12/2007 03/22/2012 Urinary tract infection, site not specified [N3*06/12/2007 03/22/2012 Renal colic [N23] 06/12/2007 03/22/2012 Diabetes mellitus (HCC) [E11.9] 09/04/1985 HTN (hypertension) [I10] 09/04/2001 Hyperlipidemia [E78.5] 09/04/1999 Depression [F32.A] 09/04/2006 06/12/2023 Hypothyroid [E03.9] 03/30/2012 ASHD (arteriosclerotic heart disease) [I25.10] 05/10/2012 Proteinuria [R80.9] 06/14/2013 CKD (chronic kidney disease) stage 3, GFR 30-59*07/17/2013 05/02/2017 CKD (chronic kidney disease) stage 4, GFR 15-29*04/05/2017 03/02/2018 CKD (chronic kidney disease) stage V requiring *03/01/2018 08/29/2019 Stage 5 chronic kidney disease on chronic dialy*05/16/2019 VT (ventricular tachycardia) [I47.20] 05/17/2019 Steal syndrome dialysis vascular access (HCC) [*05/17/2019 02/23/2023 ESRD (end stage renal disease) (HCC) [N18.6] 04/21/2021 10/27/2023 Ventral hernia with obstruction, without gangre*12/09/2021 06/29/2023 Tubular adenoma of colon [D12.6] 11/15/2022 Hyperkalemia [E87.5] 06/20/2023 09/14/2023 Secondary hyperparathyroidism of renal origin (*06/20/2023 Abnormal EKG [R94.31] 06/20/2023 Hypertrophic cardiomyopathy (HCC) [I42.2] 11/08/2023 Congestive heart failure (HCC) [I50.9] History of echocardiogram [Z92.89] 11/07/2023 History of stress test [Z92.89] 06/21/2023 Encounter for screening for stenosis of carotid*03/27/2023 Arteriovenous fistula, acquired (HCC) [I77.0] 06/13/2024 Peripheral arterial disease (HCC) [I73.9] 07/10/2024 Migraine without aura, not intractable, without*05/21/2021 Anemia of chronic renal failure, stage 5 (HCC) *02/06/2025 Hypoxia [R09.02] 02/06/2025 Hypertensive left ventricular hypertrophy with *02/21/2025 Encounter Status:Closed by EDIE SAMAYOA on 04/24/25 PROGRESS Observed: 02/20/2025 9:00 AM Status: COMPLETED Source: [facility] ID: [id number] Author: FER DURON MD Service: ? Author Type: Physician Type: Progress Notes Filed: 02/21/2025 10:01 Note Text: Date: February 20, 2025 Chief Complaint: Hospital F/U HISTORY OF PRESENT ILLNESS: Sandy Bravo is a 60 year old female with a history of end-stage renal disease on hemodialysis presents after recent hospitalization on 01/26/2025 for episode of acute congestive heart failure. The patient did receive dialysis during her hospitalization with improvement in her symptoms. She does complain of chronic dyspnea on exertion and pedal edema. She denies any complaints of chest pain, orthopnea, paroxysmal nocturnal dyspnea. There are no complaints of palpitations, lightheadedness, syncope or near syncope. Echocardiogram performed November 2023 demonstrated left ventricular ejection fraction of 67% with severe septal left ventricular hypertrophy and left ventricular outflow tract obstruction. Lexiscan stress Myocard perfusion study performed in June 2023 was reported as negative for ischemia. ALLERGIES Allergen Reactions Codeine GI Upset Latex Hives 2005 had reaction after surgery Penicillins Swelling Chlorhexidine Rash PAST MEDICAL HISTORY: PAST MEDICAL HISTORY Diagnosis Date Acute kidney failure 01/14/2018 Anxiety Arterial steal syndrome 12/2018 Left AVF Calculus of ureter 06/12/2007 CKD (chronic kidney disease) stage V requiring chronic dialysis ([facility]) 03/01/2018 Dr. Pendleton, nephrology. Congestive heart failure ([facility]) Constipation Depression 09/04/2006 Encounter for screening for stenosis of carotid artery 03/27/2023 Less then 50% calcification bilaterally. ESRD on dialysis ([facility]) 05/16/2019 GERD (gastroesophageal reflux disease) Hemorrhoids History of echocardiogram 11/07/2023 EF 67%. Severe septal left ventricular hypertrophy. Grade I left ventricular diastolic dysfunction. History of echocardiogram 07/25/2019 EF 70%. Normal scan History of stress test 07/25/2019 EF 62%. No ischemia. History of stress test 07/09/2020 EF 50%. Septal hypokinesis with borderline normal systolic function. History of stress test 06/21/2023 EF 67%. No ischemia. Normal scan HTN (hypertension) 09/04/2001 Hyperlipidemia 09/04/1999 Hypertrophic cardiomyopathy (HCC) 07/25/2019 echo in 2023 confirms 40mmhg gradient with valsalva Hypothyroid 03/30/2012 Migraine without aura, not intractable, without status migrainosus 05/21/2021 Proteinuria 06/14/2013 Renal colic 06/12/2007 Secondary hyperparathyroidism of renal origin (HCC) 06/20/2023 Steal syndrome dialysis vascular access 05/17/2019 Thyroid disorder TIA (transient ischemic attack) 06/2019 Tubular adenoma of colon 11/15/2022 Type II or unspecified type diabetes mellitus without mention of complication, not stated as uncontrolled 09/04/1985 Ventral hernia with bowel obstruction 06/01/2023 PAST SURGICAL HISTORY Procedure Laterality Date APPENDECTOMY 1992 AV ANASTOMIES OPEN;BY BASILIC VEIN WINN Right 04/20/2020 transpose basilic vein fistula, R arm AV FISTULA OR GRAFT VENOUS Left 10/04/2017 AV FISTULA OR GRAFT VENOUS Left 09/20/2018 redo, failure to mature AV FISTULA OR GRAFT VENOUS Right 04/21/2021 BOWEL RESECTION HX 2006 CHOLECYSTECTOMY 1985 Cholecystectomy COLONOSCOPY SCREENING 11/15/2022 COLOSTOMY/SKIN LEVEL CECOSTOMY 2007 [id number], reversed 2006 CREATION OF AVF, PERCUTANEOUS USING MAGNETIC-GUIDED ARTERIAL AND VENOUS CATHETERS AND RADIOFREQUENCY ENERGY Right 11/14/2019 RIGHT AVF stage I EXPLORATORY LAPAROTOMY CELIOTOMY W/WO BIOPSY SPX 2006 Laparotomy, exp EXPLORATORY LAPAROTOMY, CELIOTOMY-SP 05/31/2023 lysis of adhesions, small bowel enterotomy repair. IR VENOUS FISTULAGRAM Left 01/22/2019 Left SC balloon LEFT HEART CATH,PERCUTANEOUS 03/12/2012 Medical Mx LEFT HEART CATH,PERCUTANEOUS 05/14/2018 Medical Mx PAST SURGICAL HISTORY OF Left 05/16/2019 LUE DRANA (proximal brachial to distal brachial artery bypass with RLE rGSV PAST SURGICAL HISTORY OF Left Cataract removed REDUCTION OF LARGE BREAST 1989 SALPINGECTOMY OR OOPHERECTOMY-ECTOPIC 1985 SLING OPER STRES INCONTINENCE 1998 TOTAL ABDOMINAL HYSTERECT W/WO RMVL TUBE OVARY 1990 Hysterectomy, RUSSELL VENOPLASTY Right 01/13/2025 fistulagram, venoplasties RUE FAMILY HISTORY Problem Relation Age of Onset Diabetes Mother Coronary Artery Disease Mother COPD Mother dec. age 79 Cancer Mother lung cancer Colon Cancer Father at age 52 Diabetes Sister Hypertension Sister Kidney Disease Brother other (Heart condition) Brother Diabetes Brother Cancer Brother lung cancer Coronary Artery Disease Brother dec. [place] 57 y.o. 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 amLODIPine (NORVASC) 10 mg tablet Take 1 tablet by mouth once daily. insulin lispro (HUMALOG KWIKPEN INSULIN) 100 unit/mL Inject 8 Units subcutaneously three times a day before meals. Add 1 unit for each 50 mg/dl above 150 insulin needles, DISPOSABLE, (PEN NEEDLE) 31 gauge x 5/16 Use one needle per dose four times per day. levothyroxine (SYNTHROID) 125 mcg tablet Take 1 tablet by mouth once daily. Take on empty stomach. For Thyroid lisinopril (ZESTRIL) 40 mg tablet Take 1 tablet by mouth once daily. SUMAtriptan (IMITREX) 50 mg tablet Take one tablet by mouth at onset of migraine. May repeat in 2 hours if ineffective insulin glargine (LANTUS SOLOSTAR U-100 INSULIN) 100 unit/mL (3 mL) Inject 48 Units subcutaneously daily at bedtime. atorvastatin (LIPITOR) 40 mg tablet Take 1 tablet by mouth daily at bedtime. cloNIDine HCl (CATAPRES) 0.2 mg tablet Take 1 tablet by mouth two times a day. metoprolol tartrate, short acting, (LOPRESSOR) 25 mg tablet Take 1 tablet by mouth every 12 hours. nitroglycerin sublingual (NITROQUICK) 0.4 mg SL tablet Dissolve 1 tablet under the tongue every 5 minutes as needed. ferric citrate 210 mg iron tab Take 1 tablet by mouth once daily. docusate sodium (COLACE) 100 mg capsule Take 1 capsule by mouth twice daily as needed for Constipation. NEPHRO-SONDRA 0.8 mg tab Take 1 tablet by mouth once daily. blood sugar diagnostic (BLOOD GLUCOSE TEST) test strip Test blood sugar(s) 3 times daily. Dx: Type 2 DM - Uncontrolled E11.65 Insulin: Yes Blood-Glucose Meter (BLOOD GLUCOSE MONITORING) monitoring kit 1 Each three times daily. E11.65. On insulin. aspirin, enteric coated (ASPIRIN, ENTERIC COATED) 81 mg EC tablet Take 1 tablet by mouth once daily. cloNIDine HCl (CATAPRES) 0.1 mg tablet Take 1 tablet by mouth daily at bedtime. No current facility-administered medications for this visit. I have personally reviewed the patients past medical history including social, family, surgical, diagnostics, and medications. REVIEW OF SYSTEMS: Review of Systems Constitutional: Negative for chills, fatigue and fever. HENT: Positive for hearing loss. Negative for nosebleeds and tinnitus. Eyes: Positive for visual disturbance (Lt eye- follows with ophthalmology). Respiratory: Positive for shortness of breath. Negative for cough, chest tightness and wheezing. Cardiovascular: Positive for leg swelling. Negative for chest pain and palpitations. Gastrointestinal: Negative for abdominal pain, blood in stool, nausea and vomiting. Endocrine: Negative for polydipsia, polyphagia and polyuria. Genitourinary: Negative for difficulty urinating, dysuria, frequency, hematuria and urgency. Musculoskeletal: Negative for arthralgias, back pain, gait problem, joint swelling and myalgias. Skin: Negative for rash. Neurological: Negative for dizziness, syncope, weakness and light-headedness. Hematological: Bruises/bleeds easily. PHYSICAL EXAMINATION: BP 164/62 (BP Site: Left Arm, BP Position: Sitting, BP Cuff Size: Large Adult) Pulse 68 Ht 157.5 cm (5' 2) Wt 59.9 kg (132 lb 0.9 oz) BMI 24.15 kg/m? Physical Exam Vitals reviewed. Constitutional: Appearance: Normal appearance. HENT: Head: Normocephalic and atraumatic. Nose: Nose normal. Mouth/Throat: Pharynx: Oropharynx is clear. Eyes: General: No scleral icterus. Extraocular Movements: Extraocular movements intact. Conjunctiva/sclera: Conjunctivae normal. Comments: Diminished vision lt eye Neck: Vascular: No carotid bruit. Cardiovascular: Rate and Rhythm: Normal rate and regular rhythm. Pulses: Normal pulses. Heart sounds: Murmur (3/6 chau lsb) heard. No friction rub. No gallop. Comments: Trace edema le Pulmonary: Effort: Pulmonary effort is normal. No respiratory distress. Breath sounds: Normal breath sounds. No wheezing, rhonchi or rales. Abdominal: General: Bowel sounds are normal. There is no distension. Palpations: Abdomen is soft. There is no mass. Tenderness: There is no abdominal tenderness. There is no guarding or rebound. Hernia: A hernia (lt mid) is present. Musculoskeletal: General: No swelling or tenderness. Cervical back: Neck supple. Right lower leg: No edema. Left lower leg: No edema. Skin: General: Skin is warm and dry. Neurological: General: No focal deficit present. Mental Status: She is alert and oriented to person, place, and time. Psychiatric: Mood and Affect: Mood normal. Behavior: Behavior normal. Last 3 Encounter BP Readings: Date: BP: 02/06/2025 124/60 01/02/2025 177/75 12/05/2024 124/64 Last 3 Encounter Pulse Readings: Date: Pulse: 02/06/2025 68 01/02/2025 77 12/05/2024 68 Last 3 Encounter Wt Readings: Date: Wt: 02/06/2025 58.9 kg (129 lb 13.6 oz) 01/02/2025 62.6 kg (138 lb 1.6 oz) 12/05/2024 61.1 kg (134 lb 11.2 oz) LABS: Glucose (mg/dL) Date Value 05/08/2024 392 04/23/2021 308 04/23/2021 304 Potassium (mmol/L) Date Value 05/08/2024 4.7 04/23/2021 4.4 04/23/2021 4.3 Sodium (mmol/L) Date Value 05/08/2024 138 04/23/2021 137 04/23/2021 136 Chloride (mmol/L) Date Value 05/08/2024 94 04/23/2021 96 04/23/2021 95 CO2 (mmol/L) Date Value 05/08/2024 31 04/23/2021 27 04/23/2021 28 Creatinine (mg/dL) Date Value 05/08/2024 4.01 04/23/2021 4.67 04/23/2021 4.59 BUN (mg/dL) Date Value 05/08/2024 19 04/23/2021 22 04/23/2021 22 Anion Gap (mmol/L) Date Value 05/08/2024 13 04/23/2021 14 04/23/2021 13 Calcium (mg/dL) Date Value 04/23/2021 8.9 04/23/2021 8.7 Calcium, Total (mg/dL) Date Value 05/08/2024 9.9 Protein, Total (g/dL) Date Value 02/29/2024 7.2 11/12/2019 7.3 Albumin (g/dL) Date Value 02/29/2024 4.3 02/09/2021 4.2 Bilirubin, Total (mg/dL) Date Value 02/29/2024 0.3 11/12/2019 0.3 Alkaline Phosphatase (U/L) Date Value 02/29/2024 275 11/12/2019 254 AST (U/L) Date Value 02/29/2024 34 11/12/2019 40 ALT (U/L) Date Value 02/29/2024 27 11/12/2019 23 Hemoglobin (g/dL) Date Value 05/08/2024 11.6 04/23/2021 8.6 Hematocrit (%) Date Value 05/08/2024 37.1 04/23/2021 26.8 WBC (k/uL) Date Value 05/08/2024 4.54 04/23/2021 6.82 Cholesterol, Total (mg/dL) Date Value 03/30/2021 133 Total Cholesterol, Nonfasting (mg/dL) Date Value 02/29/2024 129 HDL Cholesterol (mg/dL) Date Value 03/30/2021 55 HDL Cholesterol, Nonfasting (mg/dL) Date Value 02/29/2024 55 LDL Cholesterol, Calculated (mg/dL) Date Value 03/30/2021 57 LDL Cholesterol Calculated, Nonfasting (mg/dL) Date Value 02/29/2024 60 Triglyceride (mg/dL) Date Value 03/30/2021 105 Triglycerides, Nonfasting (mg/dL) Date Value 02/29/2024 71 EKG: Normal sinus rhythm, right bundle branch block, left anterior fascicular block, left ventricular hypertrophy with repolarization abnormality, possible lateral infarct. ASSESSMENT/PLAN: 1. Stage 5 chronic kidney disease on chronic dialysis (HCC) - ICD9: 585.6, V45.11, ICD10: N18.6, Z99.2 (primary diagnosis) Patient to continue on hemodialysis and follow-up with nephrology as scheduled. 2. Diastolic congestive heart failure, unspecified HF chronicity (HCC) - ICD9: 428.30, 428.0, ICD10: I50.30 Recent episode of congestive heart failure is consistent with diastolic dysfunction in the setting of hypertensive heart disease and end-stage renal disease 3. Hypertensive left ventricular hypertrophy with heart failure (HCC) - ICD9: 402.91, ICD10: I11.0 Goal be to maintain the patient's blood pressure less than 130/80 4. Primary hypertension - ICD9: 401.9, ICD10: I10 The patient's blood pressure continues to be intermittently elevated. I have added clonidine 0.1 mg at at bedtime. It may be worthwhile to consider changing her amlodipine to diltiazem (negative inotrope) in the setting of left ventricular outflow tract obstruction. 5. Abnormal EKG - ICD9: 794.31, ICD10: R94.31 EKG abnormalities are likely related to chronic hypertension with left ventricular hypertrophy. Prior nuclear stress studies have been negative for myocardial ischemia or infarction. 6. Hyperlipidemia, unspecified hyperlipidemia type - ICD9: 272.4, ICD10: E78.5 Goal is to maintain her LDL less than 70. 7. Type 2 diabetes mellitus with other specified complication, with long-term current use of insulin (HCC) - ICD9: 250.80, V58.67, ICD10: E11.69, Z79.4 Goal is to maintain her hemoglobin A1c less than 7. Fer Duron MD [facility] Follow-up in 3 months Prior to entering the room, I reviewed the last progress note including the diagnosis and plan of action. When available, I then reviewed the last heart catheterization, stress test, echocardiogram and EKG. I proceeded to review the medial therapy and any side effects the patient may have had in the past. I was able to look at the last several EKGs. Greater that 51% of my time was spent with [id number] conversation with the patient. I have discussed the diagnosis and recommended treatment, alternative therapies and other options in detail. I've discussed the best benefit and side effects of these recommended treatments. I've attempted to answer all the questions to the patient's satisfaction and understanding. Fer Duron MD CNOV Observed: 02/20/2025 9:00 AM Status: COMPLETED Source: [facility][1] Office Visit (CAUNDO) SANDY BRAVO ([id number]) 1965 F Date Time Provider Department 02/20/25 9:00 AM FER DURON During your visit today, we recorded the following information about you: Pulse Blood pressure Weight Height 68/minute 164/62 59.9 kg 1.575 m Fer Duron MD 02/21/2025 10:01 AM Signed Date: February 20, 2025 Chief Complaint: Hospital F/U HISTORY OF PRESENT ILLNESS: Sandy Bravo is a 60 year old female with a history of end-stage renal disease on hemodialysis presents after recent hospitalization on 01/26/2025 for episode of acute congestive heart failure. The patient did receive dialysis during her hospitalization with improvement in her symptoms. She does complain of chronic dyspnea on exertion and pedal edema. She denies any complaints of chest pain, orthopnea, paroxysmal nocturnal dyspnea. There are no complaints of palpitations, lightheadedness, syncope or near syncope. Echocardiogram performed November 2023 demonstrated left ventricular ejection fraction of 67% with severe septal left ventricular hypertrophy and left ventricular outflow tract obstruction. Lexiscan stress Myocard perfusion study performed in June 2023 was reported as negative for ischemia. ALLERGIES Allergen Reactions Codeine GI Upset Latex Hives 2005 had reaction after surgery Penicillins Swelling Chlorhexidine Rash PAST MEDICAL HISTORY: PAST MEDICAL HISTORY Diagnosis Date Acute kidney failure 01/14/2018 Anxiety Arterial steal syndrome 12/2018 Left AVF Calculus of ureter 06/12/2007 CKD (chronic kidney disease) stage V requiring chronic dialysis ([facility]) 03/01/2018 Dr. Pendleton, nephrology. Congestive heart failure ([facility]) Constipation Depression 09/04/2006 Encounter for screening for stenosis of carotid artery 03/27/2023 Less then 50% calcification bilaterally. ESRD on dialysis ([facility]) 05/16/2019 GERD (gastroesophageal reflux disease) Hemorrhoids History of echocardiogram 11/07/2023 EF 67%. Severe septal left ventricular hypertrophy. Grade I left ventricular diastolic dysfunction. History of echocardiogram 07/25/2019 EF 70%. Normal scan History of stress test 07/25/2019 EF 62%. No ischemia. History of stress test 07/09/2020 EF 50%. Septal hypokinesis with borderline normal systolic function. History of stress test 06/21/2023 EF 67%. No ischemia. Normal scan HTN (hypertension) 09/04/2001 Hyperlipidemia 09/04/1999 Hypertrophic cardiomyopathy (HCC) 07/25/2019 echo in 2023 confirms 40mmhg gradient with valsalva Hypothyroid 03/30/2012 Migraine without aura, not intractable, without status migrainosus 05/21/2021 Proteinuria 06/14/2013 Renal colic 06/12/2007 Secondary hyperparathyroidism of renal origin (HCC) 06/20/2023 Steal syndrome dialysis vascular access 05/17/2019 Thyroid disorder TIA (transient ischemic attack) 06/2019 Tubular adenoma of colon 11/15/2022 Type II or unspecified type diabetes mellitus without mention of complication, not stated as uncontrolled 09/04/1985 Ventral hernia with bowel obstruction 06/01/2023 PAST SURGICAL HISTORY Procedure Laterality Date APPENDECTOMY 1992 AV ANASTOMIES OPEN;BY BASILIC VEIN WINN Right 04/20/2020 transpose basilic vein fistula, R arm AV FISTULA OR GRAFT VENOUS Left 10/04/2017 AV FISTULA OR GRAFT VENOUS Left 09/20/2018 redo, failure to mature AV FISTULA OR GRAFT VENOUS Right 04/21/2021 BOWEL RESECTION HX 2006 CHOLECYSTECTOMY 1985 Cholecystectomy COLONOSCOPY SCREENING 11/15/2022 COLOSTOMY/SKIN LEVEL CECOSTOMY 2007 [id number], reversed 2006 CREATION OF AVF, PERCUTANEOUS USING MAGNETIC-GUIDED ARTERIAL AND VENOUS CATHETERS AND RADIOFREQUENCY ENERGY Right 11/14/2019 RIGHT AVF stage I EXPLORATORY LAPAROTOMY CELIOTOMY W/WO BIOPSY SPX 2006 Laparotomy, exp EXPLORATORY LAPAROTOMY, CELIOTOMY-SP 05/31/2023 lysis of adhesions, small bowel enterotomy repair. IR VENOUS FISTULAGRAM Left 01/22/2019 Left SC balloon LEFT HEART CATH,PERCUTANEOUS 03/12/2012 Medical Mx LEFT HEART CATH,PERCUTANEOUS 05/14/2018 Medical Mx PAST SURGICAL HISTORY OF Left 05/16/2019 LUE DRIL (proximal brachial to distal brachial artery bypass with RLE rGSV PAST SURGICAL HISTORY OF Left Cataract removed REDUCTION OF LARGE BREAST 1990 SALPINGECTOMY OR OOPHERECTOMY-ECTOPIC 1986 SLING OPER STRES INCONTINENCE 1998 TOTAL ABDOMINAL HYSTERECT W/WO RMVL TUBE OVARY 1991 Hysterectomy, RUSSELL VENOPLASTY Right 01/13/2025 fistulagram, venoplasties RUE FAMILY HISTORY Problem Relation Age of Onset Diabetes Mother Coronary Artery Disease Mother COPD Mother dec. age 79 Cancer Mother lung cancer Colon Cancer Father at age 52 Diabetes Sister Hypertension Sister Kidney Disease Brother other (Heart condition) Brother Diabetes Brother Cancer Brother lung cancer Coronary Artery Disease Brother dec. [place] 57 y.o. 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 amLODIPine (NORVASC) 10 mg tablet Take 1 tablet by mouth once daily. insulin lispro (HUMALOG KWIKPEN INSULIN) 100 unit/mL Inject 8 Units subcutaneously three times a day before meals. Add 1 unit for each 50 mg/dl above 150 insulin needles, DISPOSABLE, (PEN NEEDLE) 31 gauge x 5/16 Use one needle per dose four times per day. levothyroxine (SYNTHROID) 125 mcg tablet Take 1 tablet by mouth once daily. Take on empty stomach. For Thyroid lisinopril (ZESTRIL) 40 mg tablet Take 1 tablet by mouth once daily. SUMAtriptan (IMITREX) 50 mg tablet Take one tablet by mouth at onset of migraine. May repeat in 2 hours if ineffective insulin glargine (LANTUS SOLOSTAR U-100 INSULIN) 100 unit/mL (3 mL) Inject 48 Units subcutaneously daily at bedtime. atorvastatin (LIPITOR) 40 mg tablet Take 1 tablet by mouth daily at bedtime. cloNIDine HCl (CATAPRES) 0.2 mg tablet Take 1 tablet by mouth two times a day. metoprolol tartrate, short acting, (LOPRESSOR) 25 mg tablet Take 1 tablet by mouth every 12 hours. nitroglycerin sublingual (NITROQUICK) 0.4 mg SL tablet Dissolve 1 tablet under the tongue every 5 minutes as needed. ferric citrate 210 mg iron tab Take 1 tablet by mouth once daily. docusate sodium (COLACE) 100 mg capsule Take 1 capsule by mouth twice daily as needed for Constipation. NEPHRO-SONDRA 0.8 mg tab Take 1 tablet by mouth once daily. blood sugar diagnostic (BLOOD GLUCOSE TEST) test strip Test blood sugar(s) 3 times daily. Dx: Type 2 DM - Uncontrolled E11.65 Insulin: Yes Blood-Glucose Meter (BLOOD GLUCOSE MONITORING) monitoring kit 1 Each three times daily. E11.65. On insulin. aspirin, enteric coated (ASPIRIN, ENTERIC COATED) 81 mg EC tablet Take 1 tablet by mouth once daily. cloNIDine HCl (CATAPRES) 0.1 mg tablet Take 1 tablet by mouth daily at bedtime. No current facility-administered medications for this visit. I have personally reviewed the patients past medical history including social, family, surgical, diagnostics, and medications. REVIEW OF SYSTEMS: Review of Systems Constitutional: Negative for chills, fatigue and fever. HENT: Positive for hearing loss. Negative for nosebleeds and tinnitus. Eyes: Positive for visual disturbance (Lt eye- follows with ophthalmology). Respiratory: Positive for shortness of breath. Negative for cough, chest tightness and wheezing. Cardiovascular: Positive for leg swelling. Negative for chest pain and palpitations. Gastrointestinal: Negative for abdominal pain, blood in stool, nausea and vomiting. Endocrine: Negative for polydipsia, polyphagia and polyuria. Genitourinary: Negative for difficulty urinating, dysuria, frequency, hematuria and urgency. Musculoskeletal: Negative for arthralgias, back pain, gait problem, joint swelling and myalgias. Skin: Negative for rash. Neurological: Negative for dizziness, syncope, weakness and light-headedness. Hematological: Bruises/bleeds easily. PHYSICAL EXAMINATION: BP 164/62 (BP Site: Left Arm, BP Position: Sitting, BP Cuff Size: Large Adult) Pulse 68 Ht 157.5 cm (5' 2) Wt 59.9 kg (132 lb 0.9 oz) BMI 24.15 kg/m? Physical Exam Vitals reviewed. Constitutional: Appearance: Normal appearance. HENT: Head: Normocephalic and atraumatic. Nose: Nose normal. Mouth/Throat: Pharynx: Oropharynx is clear. Eyes: General: No scleral icterus. Extraocular Movements: Extraocular movements intact. Conjunctiva/sclera: Conjunctivae normal. Comments: Diminished vision lt eye Neck: Vascular: No carotid bruit. Cardiovascular: Rate and Rhythm: Normal rate and regular rhythm. Pulses: Normal pulses. Heart sounds: Murmur (3/6 cahu lsb) heard. No friction rub. No gallop. Comments: Trace edema le Pulmonary: Effort: Pulmonary effort is normal. No respiratory distress. Breath sounds: Normal breath sounds. No wheezing, rhonchi or rales. Abdominal: General: Bowel sounds are normal. There is no distension. Palpations: Abdomen is soft. There is no mass. Tenderness: There is no abdominal tenderness. There is no guarding or rebound. Hernia: A hernia (lt mid) is present. Musculoskeletal: General: No swelling or tenderness. Cervical back: Neck supple. Right lower leg: No edema. Left lower leg: No edema. Skin: General: Skin is warm and dry. Neurological: General: No focal deficit present. Mental Status: She is alert and oriented to person, place, and time. Psychiatric: Mood and Affect: Mood normal. Behavior: Behavior normal. Last 3 Encounter BP Readings: Date: BP: 02/06/2025 124/60 01/02/2025 177/75 12/05/2024 124/64 Last 3 Encounter Pulse Readings: Date: Pulse: 02/06/2025 68 01/02/2025 77 12/05/2024 68 Last 3 Encounter Wt Readings: Date: Wt: 02/06/2025 58.9 kg (129 lb 13.6 oz) 01/02/2025 62.6 kg (138 lb 1.6 oz) 12/05/2024 61.1 kg (134 lb 11.2 oz) LABS: Glucose (mg/dL) Date Value 05/08/2024 392 04/23/2021 308 04/23/2021 304 Potassium (mmol/L) Date Value 05/08/2024 4.7 04/23/2021 4.4 04/23/2021 4.3 Sodium (mmol/L) Date Value 05/08/2024 138 04/23/2021 137 04/23/2021 136 Chloride (mmol/L) Date Value 05/08/2024 94 04/23/2021 96 04/23/2021 95 CO2 (mmol/L) Date Value 05/08/2024 31 04/23/2021 27 04/23/2021 28 Creatinine (mg/dL) Date Value 05/08/2024 4.01 04/23/2021 4.67 04/23/2021 4.59 BUN (mg/dL) Date Value 05/08/2024 19 04/23/2021 22 04/23/2021 22 Anion Gap (mmol/L) Date Value 05/08/2024 13 04/23/2021 14 04/23/2021 13 Calcium (mg/dL) Date Value 04/23/2021 8.9 04/23/2021 8.7 Calcium, Total (mg/dL) Date Value 05/08/2024 9.9 Protein, Total (g/dL) Date Value 02/29/2024 7.2 11/12/2019 7.3 Albumin (g/dL) Date Value 02/29/2024 4.3 02/09/2021 4.2 Bilirubin, Total (mg/dL) Date Value 02/29/2024 0.3 11/12/2019 0.3 Alkaline Phosphatase (U/L) Date Value 02/29/2024 275 11/12/2019 254 AST (U/L) Date Value 02/29/2024 34 11/12/2019 40 ALT (U/L) Date Value 02/29/2024 27 11/12/2019 23 Hemoglobin (g/dL) Date Value 05/08/2024 11.6 04/23/2021 8.6 Hematocrit (%) Date Value 05/08/2024 37.1 04/23/2021 26.8 WBC (k/uL) Date Value 05/08/2024 4.54 04/23/2021 6.82 Cholesterol, Total (mg/dL) Date Value 03/30/2021 133 Total Cholesterol, Nonfasting (mg/dL) Date Value 02/29/2024 129 HDL Cholesterol (mg/dL) Date Value 03/30/2021 55 HDL Cholesterol, Nonfasting (mg/dL) Date Value 02/29/2024 55 LDL Cholesterol, Calculated (mg/dL) Date Value 03/30/2021 57 LDL Cholesterol Calculated, Nonfasting (mg/dL) Date Value 02/29/2024 60 Triglyceride (mg/dL) Date Value 03/30/2021 105 Triglycerides, Nonfasting (mg/dL) Date Value 02/29/2024 71 EKG: Normal sinus rhythm, right bundle branch block, left anterior fascicular block, left ventricular hypertrophy with repolarization abnormality, possible lateral infarct. ASSESSMENT/PLAN: 1. Stage 5 chronic kidney disease on chronic dialysis (HCC) - ICD9: 585.6, V45.11, ICD10: N18.6, Z99.2 (primary diagnosis) Patient to continue on hemodialysis and follow-up with nephrology as scheduled. 2. Diastolic congestive heart failure, unspecified HF chronicity (HCC) - ICD9: 428.30, 428.0, ICD10: I50.30 Recent episode of congestive heart failure is consistent with diastolic dysfunction in the setting of hypertensive heart disease and end-stage renal disease 3. Hypertensive left ventricular hypertrophy with heart failure (HCC) - ICD9: 402.91, ICD10: I11.0 Goal be to maintain the patient's blood pressure less than 130/80 4. Primary hypertension - ICD9: 401.9, ICD10: I10 The patient's blood pressure continues to be intermittently elevated. I have added clonidine 0.1 mg at at bedtime. It may be worthwhile to consider changing her amlodipine to diltiazem (negative inotrope) in the setting of left ventricular outflow tract obstruction. 5. Abnormal EKG - ICD9: 794.31, ICD10: R94.31 EKG abnormalities are likely related to chronic hypertension with left ventricular hypertrophy. Prior nuclear stress studies have been negative for myocardial ischemia or infarction. 6. Hyperlipidemia, unspecified hyperlipidemia type - ICD9: 272.4, ICD10: E78.5 Goal is to maintain her LDL less than 70. 7. Type 2 diabetes mellitus with other specified complication, with long-term current use of insulin ([facility]) - ICD9: 250.80, V58.67, ICD10: E11.69, Z79.4 Goal is to maintain her hemoglobin A1c less than 7. Fer Duron MD [facility] Follow-up in 3 months Prior to entering the room, I reviewed the last progress note including the diagnosis and plan of action. When available, I then reviewed the last heart catheterization, stress test, echocardiogram and EKG. I proceeded to review the medial therapy and any side effects the patient may have had in the past. I was able to look at the last several EKGs. Greater that 51% of my time was spent with [id number] conversation with the patient. I have discussed the diagnosis and recommended treatment, alternative therapies and other options in detail. I've discussed the best benefit and side effects of these recommended treatments. I've attempted to answer all the questions to the patient's satisfaction and understanding. Fer Duron MD Allergies As of Date: 02/20/2025 Noted Allergy Reaction CODEINE 12/11/2006 8 - GI Upset LATEX 03/22/2012 4 - Hives Comments: 2006 had reaction after surgery PENICILLINS 12/11/2006 7 - Swelling CHLORHEXIDINE 11/26/2018 2 - Rash Date Reviewed: 02/20/2025 Reviewed by: Tonny Benoit MA - Fully Assessed Reason for Visit: Hospital F/U [57] Primary Visit Diagnosis:Stage 5 chronic kidney disease on chronic dialysis ([facility]) [N18.6, Z99.2] Other Visit Diagnoses:Diastolic congestive heart failure, unspecified HF chronicity ([facility]) [I50.30] Hypertensive left ventricular hypertrophy with heart failure ([facility]) [I11.0] Primary hypertension [I10] Abnormal EKG [R94.31] Hyperlipidemia, unspecified hyperlipidemia type [E78.5] Type 2 diabetes mellitus with other specified complication, with long-term current use of insulin ([facility]) [E11.69, Z79.4] Order(s):ECG COMPLETE [ECG01] Order #: [id number]. #:[id number] cloNIDine HCl (CATAPRES) 0.1 mg tabletTake 1 tablet by mouth daily at bedtime.Disp: 30 tabletRfl: 5 Prescriptions as of 02/21/2025 - cloNIDine HCl (CATAPRES) 0.1 mg tablet Take 1 tablet by mouth daily at bedtime. - furosemide (LASIX) 40 mg tablet Take 40 mg by mouth once daily. - amLODIPine (NORVASC) 10 mg tablet Take 1 tablet by mouth once daily. - insulin lispro (HUMALOG KWIKPEN INSULIN) 100 unit/mL Inject 8 Units subcutaneously three times a day before meals. Add 1 unit for each 50 mg/dl above 150 - insulin needles, DISPOSABLE, (PEN NEEDLE) 31 gauge x 5/16 Use one needle per dose four times per day. - levothyroxine (SYNTHROID) 125 mcg tablet Take 1 tablet by mouth once daily. Take on empty stomach. For Thyroid - lisinopril (ZESTRIL) 40 mg tablet Take 1 tablet by mouth once daily. - SUMAtriptan (IMITREX) 50 mg tablet Take one tablet by mouth at onset of migraine. May repeat in 2 hours if ineffective - insulin glargine (LANTUS SOLOSTAR U-100 INSULIN) 100 unit/mL (3 mL) Inject 48 Units subcutaneously daily at bedtime. - atorvastatin (LIPITOR) 40 mg tablet Take 1 tablet by mouth daily at bedtime. - cloNIDine HCl (CATAPRES) 0.2 mg tablet Take 1 tablet by mouth two times a day. - metoprolol tartrate, short acting, (LOPRESSOR) 25 mg tablet Take 1 tablet by mouth every 12 hours. - nitroglycerin sublingual (NITROQUICK) 0.4 mg SL tablet Dissolve 1 tablet under the tongue every 5 minutes as needed. - ferric citrate 210 mg iron tab Take 1 tablet by mouth once daily. - docusate sodium (COLACE) 100 mg capsule Take 1 capsule by mouth twice daily as needed for Constipation. - NEPHRO-SONDRA 0.8 mg tab Take 1 tablet by mouth once daily. - blood sugar diagnostic (BLOOD GLUCOSE TEST) test strip Test blood sugar(s) 3 times daily. Dx: Type 2 DM - Uncontrolled E11.65 Insulin: Yes - Blood-Glucose Meter (BLOOD GLUCOSE MONITORING) monitoring kit 1 Each three times daily. E11.65. On insulin. - aspirin, enteric coated (ASPIRIN, ENTERIC COATED) 81 mg EC tablet Take 1 tablet by mouth once daily. Problem List As Of Date 02/20/2025 Noted Resolved Calculus of ureter [N20.1] 06/12/2007 03/22/2012 Urinary tract infection, site not specified [N3*06/12/2007 03/22/2012 Renal colic [N23] 06/12/2007 03/22/2012 Controlled type 2 diabetes mellitus without com*09/04/1985 HTN (hypertension) [I10] 09/04/2001 Hyperlipidemia [E78.5] 09/04/1999 Depression [F32.A] 09/04/2006 06/12/2023 Hypothyroid [E03.9] 03/30/2012 ASCVD (arteriosclerotic cardiovascular disease)*05/10/2012 Proteinuria [R80.9] 06/14/2013 CKD (chronic kidney disease) stage 3, GFR 30-59*07/17/2013 05/02/2017 CKD (chronic kidney disease) stage 4, GFR 15-29*04/05/2017 03/02/2018 CKD (chronic kidney disease) stage V requiring *03/01/2018 08/29/2019 ESRD on dialysis ([facility]) [N18.6, Z99.2] 05/16/2019 VT (ventricular tachycardia) [I47.20] 05/17/2019 Steal syndrome dialysis vascular access ([facility]) [*05/17/2019 02/23/2023 ESRD (end stage renal disease) ([facility]) [N18.6] 04/21/2021 10/27/2023 Ventral hernia with obstruction, without gangre*12/09/2021 06/29/2023 Tubular adenoma of colon [D12.6] 11/15/2022 Hyperkalemia [E87.5] 06/20/2023 09/14/2023 Secondary hyperparathyroidism of renal origin (*06/20/2023 Abnormal EKG [R94.31] 06/20/2023 09/14/2023 Hypertrophic cardiomyopathy ([facility]) [I42.2] 11/08/2023 Congestive heart failure ([facility]) [I50.9] History of echocardiogram [Z92.89] 11/07/2023 History of stress test [Z92.89] 06/21/2023 Encounter for screening for stenosis of carotid*03/27/2023 Arteriovenous fistula, acquired ([facility]) [I77.0] 06/13/2024 Peripheral arterial disease ([facility]) [I73.9] 07/10/2024 Migraine without aura, not intractable, without*05/21/2021 Anemia of chronic renal failure, stage 5 ([facility]) *02/06/2025 Hypoxia [R09.02] 02/06/2025 Prescriptions ordered this encounter Disp Refills Start End CLONIDINE HCL 0.1 MG TABLET 30 t* 5 02/20/2025 Route: PO Sig: Take 1 tablet by mouth daily at bedtime. Level of Service: OFFICE/OUTPATIENT ESTABLISHED HIGH MDM 40 MIN [27622] Additional E/M codes: VISIT CPLX INHERENT EANDM ASSOC WITH MED * Encounter Status:Closed by FER DURON on 02/21/25 ECG COMPLETE Observed: 02/20/2025 9:00 AM Status: F Source: [facility][1] Ventricular Rate : 68 BPM Atrial Rate : 68 BPM P-R Interval : 170 ms QRS Duration : 132 ms Q-T Interval : 462 ms QTC Calculation(Bazett) : 491 ms Calculated P [place] : 42 degrees Calculated R [place] : -50 degrees Calculated T [place] : 106 degrees Normal sinus rhythm Right bundle branch block Left anterior fascicular block Bifascicular block Questionable change in initial forces of Lateral leads Confirmed by DAVE LAKE DO ([id number]) on 02/23/2025 5:06:36 PM NAME : SANDY BRAVO PID : [id number] : 1965 Gender : Female Race : ORD : [id number] Procedure Date : Feb 20 2025 09:00:55 Edit Date : Feb 23 2025 17:06:38 Diagnosis: Normal sinus rhythm Right bundle branch block Left anterior fascicular block Bifascicular block Questionable change in initial forces of Lateral leads Confirmed by DAVE LAKE DO ([id number]) on 02/23/2025 5:06:36 PM Test Reason : HCS Location : 2 : [place] Overread By : DAVE LAKE DO Edited By : DAVE LAKE DO Referred By : , Acquired by : [id number], PROGRESS Observed: 02/06/2025 11:49 AM Status: COMPLETED Source: [facility] ID: [id number] Author: MALDONADO DENNY MD Service: ? Author Type: Physician Type: Progress Notes Filed: 02/06/2025 12:48 Note Text: This note was created using [employer]. Subjective Patient presents with: Hospital F/U Recording using [facility] software for draft documentation of the visit was discussed with the patient/authorized medical detail representative; all questions welcomed and answered. Patient/authorized medical detail representative agreed to proceed Sandy Bravo is a 60 year old female. Pulmonary Edema: - Hospitalized at [facility] last Monday for severe dyspnea; initially thought it was a chest cold. - Chest X-ray revealed pulmonary edema; COVID and RSV tests were negative. - Underwent dialysis, removing approximately 9 liters of fluid. - Dyspnea has significantly improved but still intermittently present. - Started on Lasix during hospitalization. - No changes to other medications. - Denies current cough or chest pain. - Uses supplemental oxygen PRN; was not on oxygen prior to hospitalization. - Reports edema primarily in the feet. 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 Review of Systems Cardiovascular: (+) pedal edema, (-) chest pain Respiratory: (+) shortness of breath, (-) cough ACTIVE PROBLEM LIST Controlled Type 2 Diabetes Mellitus Without Complication, With Long-Term Current Use of Insulin (Hcc) Htn (Hypertension) Hyperlipidemia Hypothyroid Ascvd (Arteriosclerotic Cardiovascular Disease) Proteinuria Esrd On Dialysis (Hcc) VT (ventricular tachycardia) Tubular Adenoma of Colon Secondary Hyperparathyroidism of Renal Origin (Hcc) Hypertrophic Cardiomyopathy (Hcc) Congestive Heart Failure (Hcc) History of Echocardiogram History of Stress Test Encounter for Screening for Stenosis of Carotid Artery Arteriovenous Fistula, Acquired Peripheral Arterial Disease Migraine Without Aura, Not Intractable, Without Status Migrainosus Social History Tobacco Use Smoking status: Former Current packs/day: 0.00 Average packs/day: 1.5 packs/day for 3.0 years (4.5 ttl pk-yrs) Types: Cigarettes Start date: 09/04/2002 Quit date: 09/04/2005 Years since quittin.4 Smokeless tobacco: Never Tobacco comments: quit march 10 Vaping Use Vaping status: Never Used Substance Use Topics Alcohol use: No Drug use: No Current Outpatient Medications Medication Sig furosemide (LASIX) 40 mg tablet Take 40 mg by mouth once daily. amLODIPine (NORVASC) 10 mg tablet Take 1 tablet by mouth once daily. insulin lispro (HUMALOG KWIKPEN INSULIN) 100 unit/mL Inject 8 Units subcutaneously three times a day before meals. Add 1 unit for each 50 mg/dl above 150 insulin needles, DISPOSABLE, (PEN NEEDLE) 31 gauge x 5/16 Use one needle per dose four times per day. levothyroxine (SYNTHROID) 125 mcg tablet Take 1 tablet by mouth once daily. Take on empty stomach. For Thyroid lisinopril (ZESTRIL) 40 mg tablet Take 1 tablet by mouth once daily. SUMAtriptan (IMITREX) 50 mg tablet Take one tablet by mouth at onset of migraine. May repeat in 2 hours if ineffective insulin glargine (LANTUS SOLOSTAR U-100 INSULIN) 100 unit/mL (3 mL) Inject 48 Units subcutaneously daily at bedtime. atorvastatin (LIPITOR) 40 mg tablet Take 1 tablet by mouth daily at bedtime. cloNIDine HCl (CATAPRES) 0.2 mg tablet Take 1 tablet by mouth two times a day. metoprolol tartrate, short acting, (LOPRESSOR) 25 mg tablet Take 1 tablet by mouth every 12 hours. nitroglycerin sublingual (NITROQUICK) 0.4 mg SL tablet Dissolve 1 tablet under the tongue every 5 minutes as needed. ferric citrate 210 mg iron tab Take 1 tablet by mouth once daily. docusate sodium (COLACE) 100 mg capsule Take 1 capsule by mouth twice daily as needed for Constipation. NEPHRO-SONDRA 0.8 mg tab Take 1 tablet by mouth once daily. blood sugar diagnostic (BLOOD GLUCOSE TEST) test strip Test blood sugar(s) 3 times daily. Dx: Type 2 DM - Uncontrolled E11.65 Insulin: Yes Blood-Glucose Meter (BLOOD GLUCOSE MONITORING) monitoring kit 1 Each three times daily. E11.65. On insulin. aspirin, enteric coated (ASPIRIN, ENTERIC COATED) 81 mg EC tablet Take 1 tablet by mouth once daily. No current facility-administered medications for this visit. Objective BP 124/60 Pulse 68 Temp 36.8 ?C (98.3 ?F) (Temporal) Wt 58.9 kg (129 lb 13.6 oz) SpO2 97% BMI 23.75 kg/m? Physical Exam Constitutional: General: She is not in acute distress. Appearance: She is not ill-appearing. Cardiovascular: Rate and Rhythm: Normal rate and regular rhythm. Heart sounds: S1 normal and S2 normal. No murmur heard. No friction rub. No gallop. Pulmonary: Effort: No respiratory distress. Breath sounds: No wheezing or rales. Abdominal: Tenderness: There is no abdominal tenderness. Musculoskeletal: Right lower le+ Pitting Edema present. Left lower le+ Pitting Edema present. Neurological: Mental Status: She is alert. Assessment and Plan 1. Congestive heart failure, unspecified HF chronicity, unspecified heart failure type (HCC) - ICD9: 428.0, ICD10: I50.9 (primary diagnosis) - HFpEF 50+ - Compensated - Continue current medications - Continue dialysis. 2. ESRD on dialysis (HCC) - ICD9: 585.6, V45.11, ICD10: N18.6, Z99.2 - As above. 3. Anemia of chronic renal failure, stage 5 (HCC) - ICD9: 285.21, 585.5, ICD10: N18.5, D63.1 - Monitored by nephrology. 4. Hypoxia - ICD9: 799.02, ICD10: R09.02 Due to congestive heart failure. Improved. Hospital set up home O2. O2 via NC 2 LPM during ambulation. Patient reported using as directed. Maldonado Denny MD CNOV Observed: 02/06/2025 11:40 AM Status: COMPLETED Source: [facility] Office Visit (INTMWS) SANDY BRAVO ([id number]) 1965 F Date Time Provider Department 02/06/25 11:40 AM MALDONADO DENNY INTMWS During your visit today, we recorded the following information about you: Temperature Pulse Blood pressure Weight 98.3 degrees 68/minute 124/60 58.9 kg Maldonado Denny MD 02/06/2025 12:48 PM Signed This note was created using [employer]. Subjective Patient presents with: Hospital F/U Recording using [facility] software for draft documentation of the visit was discussed with the patient/authorized medical detail representative; all questions welcomed and answered. Patient/authorized medical detail representative agreed to proceed Sandy Bravo is a 60 year old female. Pulmonary Edema: - Hospitalized at [facility] last Monday for severe dyspnea; initially thought it was a chest cold. - Chest X-ray revealed pulmonary edema; COVID and RSV tests were negative. - Underwent dialysis, removing approximately 9 liters of fluid. - Dyspnea has significantly improved but still intermittently present. - Started on Lasix during hospitalization. - No changes to other medications. - Denies current cough or chest pain. - Uses supplemental oxygen PRN; was not on oxygen prior to hospitalization. - Reports edema primarily in the feet. 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 Review of Systems Cardiovascular: (+) pedal edema, (-) chest pain Respiratory: (+) shortness of breath, (-) cough ACTIVE PROBLEM LIST Controlled Type 2 Diabetes Mellitus Without Complication, With Long-Term Current Use of Insulin (Hcc) Htn (Hypertension) Hyperlipidemia Hypothyroid Ascvd (Arteriosclerotic Cardiovascular Disease) Proteinuria Esrd On Dialysis (Hcc) VT (ventricular tachycardia) Tubular Adenoma of Colon Secondary Hyperparathyroidism of Renal Origin (Hcc) Hypertrophic Cardiomyopathy (Hcc) Congestive Heart Failure (Hcc) History of Echocardiogram History of Stress Test Encounter for Screening for Stenosis of Carotid Artery Arteriovenous Fistula, Acquired Peripheral Arterial Disease Migraine Without Aura, Not Intractable, Without Status Migrainosus Social History Tobacco Use Smoking status: Former Current packs/day: 0.00 Average packs/day: 1.5 packs/day for 3.0 years (4.5 ttl pk-yrs) Types: Cigarettes Start date: 09/04/2002 Quit date: 09/04/2005 Years since quittin.4 Smokeless tobacco: Never Tobacco comments: quit march 10 Vaping Use Vaping status: Never Used Substance Use Topics Alcohol use: No Drug use: No Current Outpatient Medications Medication Sig furosemide (LASIX) 40 mg tablet Take 40 mg by mouth once daily. amLODIPine (NORVASC) 10 mg tablet Take 1 tablet by mouth once daily. insulin lispro (HUMALOG KWIKPEN INSULIN) 100 unit/mL Inject 8 Units subcutaneously three times a day before meals. Add 1 unit for each 50 mg/dl above 150 insulin needles, DISPOSABLE, (PEN NEEDLE) 31 gauge x 5/16 Use one needle per dose four times per day. levothyroxine (SYNTHROID) 125 mcg tablet Take 1 tablet by mouth once daily. Take on empty stomach. For Thyroid lisinopril (ZESTRIL) 40 mg tablet Take 1 tablet by mouth once daily. SUMAtriptan (IMITREX) 50 mg tablet Take one tablet by mouth at onset of migraine. May repeat in 2 hours if ineffective insulin glargine (LANTUS SOLOSTAR U-100 INSULIN) 100 unit/mL (3 mL) Inject 48 Units subcutaneously daily at bedtime. atorvastatin (LIPITOR) 40 mg tablet Take 1 tablet by mouth daily at bedtime. cloNIDine HCl (CATAPRES) 0.2 mg tablet Take 1 tablet by mouth two times a day. metoprolol tartrate, short acting, (LOPRESSOR) 25 mg tablet Take 1 tablet by mouth every 12 hours. nitroglycerin sublingual (NITROQUICK) 0.4 mg SL tablet Dissolve 1 tablet under the tongue every 5 minutes as needed. ferric citrate 210 mg iron tab Take 1 tablet by mouth once daily. docusate sodium (COLACE) 100 mg capsule Take 1 capsule by mouth twice daily as needed for Constipation. NEPHRO-SONDRA 0.8 mg tab Take 1 tablet by mouth once daily. blood sugar diagnostic (BLOOD GLUCOSE TEST) test strip Test blood sugar(s) 3 times daily. Dx: Type 2 DM - Uncontrolled E11.65 Insulin: Yes Blood-Glucose Meter (BLOOD GLUCOSE MONITORING) monitoring kit 1 Each three times daily. E11.65. On insulin. aspirin, enteric coated (ASPIRIN, ENTERIC COATED) 81 mg EC tablet Take 1 tablet by mouth once daily. No current facility-administered medications for this visit. Objective BP 124/60 Pulse 68 Temp 36.8 ?C (98.3 ?F) (Temporal) Wt 58.9 kg (129 lb 13.6 oz) SpO2 97% BMI 23.75 kg/m? Physical Exam Constitutional: General: She is not in acute distress. Appearance: She is not ill-appearing. Cardiovascular: Rate and Rhythm: Normal rate and regular rhythm. Heart sounds: S1 normal and S2 normal. No murmur heard. No friction rub. No gallop. Pulmonary: Effort: No respiratory distress. Breath sounds: No wheezing or rales. Abdominal: Tenderness: There is no abdominal tenderness. Musculoskeletal: Right lower le+ Pitting Edema present. Left lower le+ Pitting Edema present. Neurological: Mental Status: She is alert. Assessment and Plan 1. Congestive heart failure, unspecified HF chronicity, unspecified heart failure type (HCC) - ICD9: 428.0, ICD10: I50.9 (primary diagnosis) - HFpEF 50+ - Compensated - Continue current medications - Continue dialysis. 2. ESRD on dialysis (HCC) - ICD9: 585.6, V45.11, ICD10: N18.6, Z99.2 - As above. 3. Anemia of chronic renal failure, stage 5 (HCC) - ICD9: 285.21, 585.5, ICD10: N18.5, D63.1 - Monitored by nephrology. 4. Hypoxia - ICD9: 799.02, ICD10: R09.02 Due to congestive heart failure. Improved. Hospital set up home O2. O2 via NC 2 LPM during ambulation. Patient reported using as directed. Maldonado Denny MD Allergies As of Date: 02/06/2025 Noted Allergy Reaction CODEINE 12/11/2006 8 - GI Upset LATEX 03/22/2012 4 - Hives Comments: 2006 had reaction after surgery PENICILLINS 12/11/2006 7 - Swelling CHLORHEXIDINE 11/26/2018 2 - Rash Date Reviewed: 02/06/2025 Reviewed by: Edie Samayoa LPN - Fully Assessed Reason for Visit: Hospital F/U [57] Primary Visit Diagnosis:Congestive heart failure, unspecified HF chronicity, unspecified heart failure type ([facility]) [I50.9] Other Visit Diagnoses:ESRD on dialysis ([facility]) [N18.6, Z99.2] Anemia of chronic renal failure, stage 5 ([facility]) [N18.5, D63.1] Hypoxia [R09.02] Prescriptions as of 02/06/2025 - furosemide (LASIX) 40 mg tablet Take 40 mg by mouth once daily. - amLODIPine (NORVASC) 10 mg tablet Take 1 tablet by mouth once daily. - insulin lispro (HUMALOG KWIKPEN INSULIN) 100 unit/mL Inject 8 Units subcutaneously three times a day before meals. Add 1 unit for each 50 mg/dl above 150 - insulin needles, DISPOSABLE, (PEN NEEDLE) 31 gauge x 5/16 Use one needle per dose four times per day. - levothyroxine (SYNTHROID) 125 mcg tablet Take 1 tablet by mouth once daily. Take on empty stomach. For Thyroid - lisinopril (ZESTRIL) 40 mg tablet Take 1 tablet by mouth once daily. - SUMAtriptan (IMITREX) 50 mg tablet Take one tablet by mouth at onset of migraine. May repeat in 2 hours if ineffective - insulin glargine (LANTUS SOLOSTAR U-100 INSULIN) 100 unit/mL (3 mL) Inject 48 Units subcutaneously daily at bedtime. - atorvastatin (LIPITOR) 40 mg tablet Take 1 tablet by mouth daily at bedtime. - cloNIDine HCl (CATAPRES) 0.2 mg tablet Take 1 tablet by mouth two times a day. - metoprolol tartrate, short acting, (LOPRESSOR) 25 mg tablet Take 1 tablet by mouth every 12 hours. - nitroglycerin sublingual (NITROQUICK) 0.4 mg SL tablet Dissolve 1 tablet under the tongue every 5 minutes as needed. - ferric citrate 210 mg iron tab Take 1 tablet by mouth once daily. - docusate sodium (COLACE) 100 mg capsule Take 1 capsule by mouth twice daily as needed for Constipation. - NEPHRO-SONDRA 0.8 mg tab Take 1 tablet by mouth once daily. - blood sugar diagnostic (BLOOD GLUCOSE TEST) test strip Test blood sugar(s) 3 times daily. Dx: Type 2 DM - Uncontrolled E11.65 Insulin: Yes - Blood-Glucose Meter (BLOOD GLUCOSE MONITORING) monitoring kit 1 Each three times daily. E11.65. On insulin. - aspirin, enteric coated (ASPIRIN, ENTERIC COATED) 81 mg EC tablet Take 1 tablet by mouth once daily. Problem List As Of Date 02/06/2025 Noted Resolved Calculus of ureter [N20.1] 06/12/2007 03/22/2012 Urinary tract infection, site not specified [N3*06/12/2007 03/22/2012 Renal colic [N23] 06/12/2007 03/22/2012 Controlled type 2 diabetes mellitus without com*09/04/1985 HTN (hypertension) [I10] 09/04/2001 Hyperlipidemia [E78.5] 09/04/1999 Depression [F32.A] 09/04/2006 06/12/2023 Hypothyroid [E03.9] 03/30/2012 ASCVD (arteriosclerotic cardiovascular disease)*05/10/2012 Proteinuria [R80.9] 06/14/2013 CKD (chronic kidney disease) stage 3, GFR 30-59*07/17/2013 05/02/2017 CKD (chronic kidney disease) stage 4, GFR 15-29*04/05/2017 03/02/2018 CKD (chronic kidney disease) stage V requiring *03/01/2018 08/29/2019 ESRD on dialysis (HCC) [N18.6, Z99.2] 05/16/2019 VT (ventricular tachycardia) [I47.20] 05/17/2019 Steal syndrome dialysis vascular access (HCC) [*05/17/2019 02/23/2023 ESRD (end stage renal disease) (HCC) [N18.6] 04/21/2021 10/27/2023 Ventral hernia with obstruction, without gangre*12/09/2021 06/29/2023 Tubular adenoma of colon [D12.6] 11/15/2022 Hyperkalemia [E87.5] 06/20/2023 09/14/2023 Secondary hyperparathyroidism of renal origin (*06/20/2023 Abnormal EKG [R94.31] 06/20/2023 09/14/2023 Hypertrophic cardiomyopathy (HCC) [I42.2] 11/08/2023 Congestive heart failure (HCC) [I50.9] History of echocardiogram [Z92.89] 11/07/2023 History of stress test [Z92.89] 06/21/2023 Encounter for screening for stenosis of carotid*03/27/2023 Arteriovenous fistula, acquired (HCC) [I77.0] 06/13/2024 Peripheral arterial disease (HCC) [I73.9] 07/10/2024 Migraine without aura, not intractable, without*05/21/2021 Anemia of chronic renal failure, stage 5 (HCC) *02/06/2025 Hypoxia [R09.02] 02/06/2025 Level of Service: OFFICE/OUTPATIENT ESTABLISHED MOD MDM 30 MIN [40650] Additional E/M codes: VISIT CPLX INHERENT EANDM ASSOC WITH MED * Disposition: Return if symptoms worsen or fail to improve. Follow-up and Disposition History for Encounter Date Provider Department Center 02/06/2025 [id number] DENNY INTMWS [facility] Encounter Status:Closed by MALDONADO DENNY on 02/06/25 BRIEF OP NOT Observed: 01/13/2025 7:19 PM Status: COMPLETED [facility] [id number] Author: PONCHO BAUTISTA MD Service: Vascular Surgery Author Type: Resident Type: Brief Op Note Filed: 01/13/2025 19:23 Note Text: BRIEF OPERATIVE / PROCEDURE NOTE LOG ID: [id number] Surgery/Procedure Date: 01/13/2025 Incision/Procedure Start Time: 6:37 PM Incision Close/Procedure End Time: 7:19 PM Surgeon(s)/Proceduralist(s) and Mud Car Worker(s): Surgeons and Role: * Anthony Thomas MD - Primary * Poncho Bautista MD - Resident - Assisting No Additional Staff Procedure(s): - Direct access of right upper extremity loop arteriovenous graft - Diagnostic fistulogram - Venoplasty of central graft stenosis w/ 8x80 Conquest Venoplasty of proximal central stent stenosis w/ 8x80 Conquest - Venoplasty of distal central stent with 8x80 [place] ROBERTA Angio: Access: Closure: 3-0 Prolene suture Contrast: 30mL Fluorotime: 4.5 min, 22 mGy Anesthesia: Procedural Sedation ASA Class: ASA Class: 3 Findings: Pulsatile thrill in AVG. Fistulogram revealed an area of stenosis within the central graft along the outflow track. This was treated with 8x80 Conquest. The central innominate vein stent was then treated with 8x80 Conquest and [place] balloons. Improved thrill, decreased pulsatility, and improved stenosis at the conclusion of the case. Close with prolene suture. Estimated Blood Loss: 15 mls Specimens: None Complications: None PRE-OP/PRE-PROCEDURE DIAGNOSIS: Malfunctioning AVG, prolonged bleeding and swelling POST-OP/POST-PROCEDURE DIAGNOSIS: Same as Preop Patient was accompanied to the next level of care by a licensed practitioner from the surgical team pending completion of this brief op note (or operative note) SIGNATURE: Poncho Bautista MD PATIENT NAME: Sandy Bravo DATE: January 13, 2025 TIME: 7:19 PM NURSING PROG Observed: 01/13/2025 3:25 PM Status: COMPLETED Source: [facility] HNO ID: [id number] Author: SHARI LYNN RN Service: Nursing Author Type: Registered Nurse Type: Nursing Progress Note Filed: 01/13/2025 15:25 Note Text: PRE OP LEARNING ASSESSMENT PROCEDURE/SURGERY: Vascular surgery READINESS TO LEARN COGNITIVE ABILITY: Alert and oriented MOTIVATION TO LEARN: Interested FAMILY SUPPORT: High - Very involved in pt care PATIENT LEARNS BEST BY: Verbal Instruction FACTORS AFFECTING LEARNING: None PHYSICAL LIMITATIONS AFFECTING LEARNING: None Electronically Signed By: Shari Lynn RN In Department: ADMITTING OPERATIVE NO Observed: 01/13/2025 12:00 AM Status: COMPLETED Source: [facility] HNO ID: [id number] Author: ANTHONY THOMAS MD Service: Vascular Surgery Author Type: Physician Type: Operative Report Filed: 02/07/2025 13:08 Note Text: [facility] - Operative Report [id number] [address] [place] SANDY BRAVO : 1965 AGE: 59. SEX: F PATIENT TYPE: A HOSP SVC: VSS LOCATION: [id number] ATTENDING PHYSICIAN: Anthony Thomas M.D. [facility] NUMBER: [id number] DATE OF SURGERY/PROCEDURE: 01/13/2025 INCISION/PROCEDURE START TIME: 6:37 PM INCISION CLOSE/PROCEDURE END TIME: 7:21 PM PREOPERATIVE DIAGNOSIS: Right arm swelling, elevated central venous pressure. POSTOPERATIVE DIAGNOSIS: Right arm swelling, elevated central venous pressure. SURGEON: Anthony Thomas M.D. [employer] ATTENDANT: Poncho Richey. SURGERY/PROCEDURE: 1. Direct access right upper extremity right brachial artery to axillary vein graft, selective catheterization of superior vena cava with superior vena cavogram. 2. Percutaneous transluminal angioplasty, midportion of the graft with an 8 mm high-pressure balloon, percutaneous transluminal angioplasty of the axillary vein to subclavian vein region and of the superior vena cava. ANESTHESIA: General. ESTIMATED BLOOD LOSS: Minimal. CONTRAST: Nonionic, 25 mL. HISTORY: This is a patient with a right upper extremity graft. She has prolonged bleeding, elevated venous pressure, requires angiography and intervention. DESCRIPTION OF PROCEDURE: The patient was brought to the operating room suite. Identification was confirmed. Informed consent was verified. After general anesthesia was achieved, prepared and draped in sterile fashion over the right arm. Time-out was done to identify the patient, procedure, and site. Micropuncture access was obtained on the graft pointing towards the venous outflow. After placing a 7-Kazakh sheath, we advanced the catheter wire to superior vena cava. We performed a superior vena cavogram. We imaged all the way back to the graft to brachial artery anastomosis at the mid upper arm brachial artery. We identified a high-grade stenosis at the midportion of the graft in the mid humeral level at the previously placed stent at the distal axillary vein and at the more central edge of the previously placed innominate stent at the right innominate to superior vena cava junction. These were serial angioplastied to 8 mm high-pressure 15 atmospheres and serial placing of 5 minutes. Completion angiography demonstrated no residual stenosis at the innominate superior vena cava junction, distal axillary vein and mid portion of the graft respectively. Sheath, catheters, and guidewires were removed. At 20 minutes, no hematoma and unchanged perfusion. FINDINGS: Arteriovenous graft is patent. The brachial artery to graft anastomosis is unremarkable for stenosis. The midportion of the graft has greater than 50% stenosis. The distal axillary vein, subclavian vein junction has a greater than 50% stenosis at the peripheral edge of the subclavian vein stent and the center edge of the innominate vein stent at the innominate vein to superior vena cava junction has greater than 50% stenosis. The superior vena cava itself was widely patent. I was present for entire procedure, performed percutaneous access, selective catheterization, and intervention with the assistance of Dr. Richey. Anthony Thomas M.D. LK:[id number] /[id number] CNPN Observed: 01/10/2025 12:00 AM Status: COMPLETED Source: [facility] Telephone (GABYSMN) SANDY BRAVO ([id number]) 1965 F Date Time Provider Department 01/10/25 ANTHONY THOMAS During your visit today, we recorded the following information about you: Janice Fountain 01/10/2025 2:20 PM Signed Patient called in for arrival instructions and was told to arrive at 3:00 pm to J1-2, NPO after midnight, follow med guidelines and bring a ride home. Patient verbalized understanding Allergies As of Date: 01/10/2025 Noted Allergy Reaction CODEINE 12/11/2006 8 - GI Upset LATEX 03/22/2012 4 - Hives Comments: 2006 had reaction after surgery PENICILLINS 12/11/2006 7 - Swelling CHLORHEXIDINE 11/26/2018 2 - Rash Date Reviewed: 01/02/2025 Reviewed by: Romero Will OA - Fully Assessed Reason for Visit: Appointment [186] Prescriptions as of 01/10/2025 - amLODIPine (NORVASC) 10 mg tablet Take 1 tablet by mouth once daily. - insulin lispro (HUMALOG KWIKPEN INSULIN) 100 unit/mL Inject 8 Units subcutaneously three times a day before meals. Add 1 unit for each 50 mg/dl above 150 - insulin needles, DISPOSABLE, (PEN NEEDLE) 31 gauge x 5/16 Use one needle per dose four times per day. - levothyroxine (SYNTHROID) 125 mcg tablet Take 1 tablet by mouth once daily. Take on empty stomach. For Thyroid - lisinopril (ZESTRIL) 40 mg tablet Take 1 tablet by mouth once daily. - SUMAtriptan (IMITREX) 50 mg tablet Take one tablet by mouth at onset of migraine. May repeat in 2 hours if ineffective - insulin glargine (LANTUS SOLOSTAR U-100 INSULIN) 100 unit/mL (3 mL) Inject 48 Units subcutaneously daily at bedtime. - atorvastatin (LIPITOR) 40 mg tablet Take 1 tablet by mouth daily at bedtime. - cloNIDine HCl (CATAPRES) 0.2 mg tablet Take 1 tablet by mouth two times a day. - metoprolol tartrate, short acting, (LOPRESSOR) 25 mg tablet Take 1 tablet by mouth every 12 hours. - nitroglycerin sublingual (NITROQUICK) 0.4 mg SL tablet Dissolve 1 tablet under the tongue every 5 minutes as needed. - ferric citrate 210 mg iron tab Take 1 tablet by mouth once daily. - docusate sodium (COLACE) 100 mg capsule Take 1 capsule by mouth twice daily as needed for Constipation. - NEPHRO-SONDRA 0.8 mg tab Take 1 tablet by mouth once daily. - blood sugar diagnostic (BLOOD GLUCOSE TEST) test strip Test blood sugar(s) 3 times daily. Dx: Type 2 DM - Uncontrolled E11.65 Insulin: Yes - Blood-Glucose Meter (BLOOD GLUCOSE MONITORING) monitoring kit 1 Each three times daily. E11.65. On insulin. - aspirin, enteric coated (ASPIRIN, ENTERIC COATED) 81 mg EC tablet Take 1 tablet by mouth once daily. Problem List As Of Date 01/10/2025 Noted Resolved Calculus of ureter [N20.1] 06/12/2007 03/22/2012 Urinary tract infection, site not specified [N3*06/12/2007 03/22/2012 Renal colic [N23] 06/12/2007 03/22/2012 Controlled type 2 diabetes mellitus without com*09/04/1985 HTN (hypertension) [I10] 09/04/2001 Hyperlipidemia [E78.5] 09/04/1999 Depression [F32.A] 09/04/2006 06/12/2023 Hypothyroid [E03.9] 03/30/2012 ASCVD (arteriosclerotic cardiovascular disease)*05/10/2012 Proteinuria [R80.9] 06/14/2013 CKD (chronic kidney disease) stage 3, GFR 30-59*07/17/2013 05/02/2017 CKD (chronic kidney disease) stage 4, GFR 15-29*04/05/2017 03/02/2018 CKD (chronic kidney disease) stage V requiring *03/01/2018 08/29/2019 ESRD on dialysis (HCC) [N18.6, Z99.2] 05/16/2019 VT (ventricular tachycardia) [I47.20] 05/17/2019 Steal syndrome dialysis vascular access (HCC) [*05/17/2019 02/23/2023 ESRD (end stage renal disease) (HCC) [N18.6] 04/21/2021 10/27/2023 Ventral hernia with obstruction, without gangre*12/09/2021 06/29/2023 Tubular adenoma of colon [D12.6] 11/15/2022 Hyperkalemia [E87.5] 06/20/2023 09/14/2023 Secondary hyperparathyroidism of renal origin (*06/20/2023 Abnormal EKG [R94.31] 06/20/2023 09/14/2023 Hypertrophic cardiomyopathy (HCC) [I42.2] 11/08/2023 Congestive heart failure (HCC) [I50.9] History of echocardiogram [Z92.89] 11/07/2023 History of stress test [Z92.89] 06/21/2023 Encounter for screening for stenosis of carotid*03/27/2023 Arteriovenous fistula, acquired (HCC) [I77.0] 06/13/2024 Peripheral arterial disease (HCC) [I73.9] 07/10/2024 Migraine without aura, not intractable, without*05/21/2021 Encounter Status:Closed by JANICE FOUNTAIN on 01/10/25 PROGRESS Observed: 01/02/2025 3:21 PM Status: COMPLETED Source: [facility] ID: [id number] Author: ROBERT LALA MD Service: ? 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 History of ministroke per pt. History of HTN as well A/P Type 2 Diabetes with likely moderate/severe NPDR, OU HTN Retinopathy, OU Possible BRAO, OS Insulin dependent ESRD on Dialysis +HTN, HLD Reports historically BP/BS were very twyla Hemoglobin A1C (%) Date Value 02/29/2024 5.7 03/30/2021 6.2 -OCT 01/02/25 without any IRF OU. Atrophic appearance of retina on right eye, left eye poor quality due to cornea but also appears atrophic - Fundus photos demonstrate DBH both eyes, perhaps OS>OD - Recent carotid 07/28 showing less than 50% stenosis in both eyes - Superotemporal sclerosis appears longstanding, previously documented in Dr. Cruz's exam - No NVE/NVD/NVI or inflammation noted on exam - Recommend FA (transit OS) at next visit - Observe Optic Neuropathy, Left eye (pallor) - No previous history of glaucoma,IOP great - Pallor on optic disc, longstanding - could this be vascular? Post surgical? - Likely from DM/HTN, no episodes of scalp tenderness, pain with chewing - Consider HVF 24-2 in future - Likely limiting vision significantly left eye - check FA Pseudophakia, OS DMEK, OS -S/p CEIOL 02/2023 ([facility]) -Lost vision few days after CEIOL -DMEK with Dr. Cruz 11/09/23 for possible pseudophakic bullous keratopathy - Restablish with Dr. Cruz Cataract, OD -Visually significant -Waiting to undergo CEIOL until blurry vision OS improves although discussed limited improvement likely I have confirmed and edited as necessary the relevant HPI, ophthalmic history, ROS, and the neuro exam findings as obtained by others. I have seen and examined Sandy Oneill Lawrence. I have discussed the case and the management of this patient's care with the Resident/Fellow, if applicable. I also have reviewed and agree with the assessment and plan as stated above and agree with all of its relevant components. CNPN Observed: 01/01/2025 12:00 AM Status: COMPLETED Source: [facility] Telephone (VASSMN) SANDY BRAVO ([id number]) 1965 F Date Time Provider Department 01/01/25 ANTHONY THOMAS During your visit today, we recorded the following information about you: Asuncion Dubose 01/01/2025 4:01 PM Signed Spoke with patient spouse and they both stated that 01/14 would be a great date for the surgery. Explained to patient spouse that someone will follow up with them tomorrow morning. Estefani Govea RN 01/02/2025 8:51 AM Signed Due to a miscommunication/error, pt was offered Sunday 01/[address] Thomas, but he only does HD-related cases on Mondays. Called pt to discuss other options. Spoke with pt. Informed her of the error and that of Dr Thomas's availability to do the procedure on Mondays. Informed pt that we understand that she has HD on [facility], so we can see if one of his partners could do it on a or . Pt stated she would rather have Dr Thomas perform the procedure and can come as long as the procedure is in the afternoon. Pt agreed to 01/[address] Thomas. Estefani Govea RN, BSN 8:51 AM January 02, 2025 Allergies As of Date: 01/01/2025 Noted Allergy Reaction CODEINE 12/11/2006 8 - GI Upset LATEX 03/22/2012 4 - Hives Comments: 2006 had reaction after surgery PENICILLINS 12/11/2006 7 - Swelling CHLORHEXIDINE 11/26/2018 2 - Rash Date Reviewed: 12/05/2024 Reviewed by: Edie Samayoa LPN - Fully Assessed Reason for Visit: surgery date [Other] Prescriptions as of 01/02/2025 - amLODIPine (NORVASC) 10 mg tablet Take 1 tablet by mouth once daily. - insulin lispro (HUMALOG KWIKPEN INSULIN) 100 unit/mL Inject 8 Units subcutaneously three times a day before meals. Add 1 unit for each 50 mg/dl above 150 - insulin needles, DISPOSABLE, (PEN NEEDLE) 31 gauge x 5/16 Use one needle per dose four times per day. - levothyroxine (SYNTHROID) 125 mcg tablet Take 1 tablet by mouth once daily. Take on empty stomach. For Thyroid - lisinopril (ZESTRIL) 40 mg tablet Take 1 tablet by mouth once daily. - SUMAtriptan (IMITREX) 50 mg tablet Take one tablet by mouth at onset of migraine. May repeat in 2 hours if ineffective - insulin glargine (LANTUS SOLOSTAR U-100 INSULIN) 100 unit/mL (3 mL) Inject 48 Units subcutaneously daily at bedtime. - atorvastatin (LIPITOR) 40 mg tablet Take 1 tablet by mouth daily at bedtime. - cloNIDine HCl (CATAPRES) 0.2 mg tablet Take 1 tablet by mouth two times a day. - metoprolol tartrate, short acting, (LOPRESSOR) 25 mg tablet Take 1 tablet by mouth every 12 hours. - nitroglycerin sublingual (NITROQUICK) 0.4 mg SL tablet Dissolve 1 tablet under the tongue every 5 minutes as needed. - ferric citrate 210 mg iron tab Take 1 tablet by mouth once daily. - docusate sodium (COLACE) 100 mg capsule Take 1 capsule by mouth twice daily as needed for Constipation. - NEPHRO-SONDRA 0.8 mg tab Take 1 tablet by mouth once daily. - blood sugar diagnostic (BLOOD GLUCOSE TEST) test strip Test blood sugar(s) 3 times daily. Dx: Type 2 DM - Uncontrolled E11.65 Insulin: Yes - Blood-Glucose Meter (BLOOD GLUCOSE MONITORING) monitoring kit 1 Each three times daily. E11.65. On insulin. - aspirin, enteric coated (ASPIRIN, ENTERIC COATED) 81 mg EC tablet Take 1 tablet by mouth once daily. Problem List As Of Date 01/01/2025 Noted Resolved Calculus of ureter [N20.1] 06/12/2007 03/22/2012 Urinary tract infection, site not specified [N3*06/12/2007 03/22/2012 Renal colic [N23] 06/12/2007 03/22/2012 Controlled type 2 diabetes mellitus without com*09/04/1985 HTN (hypertension) [I10] 09/04/2001 Hyperlipidemia [E78.5] 09/04/1999 Depression [F32.A] 09/04/2006 06/12/2023 Hypothyroid [E03.9] 03/30/2012 ASCVD (arteriosclerotic cardiovascular disease)*05/10/2012 Proteinuria [R80.9] 06/14/2013 CKD (chronic kidney disease) stage 3, GFR 30-59*07/17/2013 05/02/2017 CKD (chronic kidney disease) stage 4, GFR 15-29*04/05/2017 03/02/2018 CKD (chronic kidney disease) stage V requiring *03/01/2018 08/29/2019 ESRD on dialysis (HCC) [N18.6, Z99.2] 05/16/2019 VT (ventricular tachycardia) [I47.20] 05/17/2019 Steal syndrome dialysis vascular access (HCC) [*05/17/2019 02/23/2023 ESRD (end stage renal disease) (HCC) [N18.6] 04/21/2021 10/27/2023 Ventral hernia with obstruction, without gangre*12/09/2021 06/29/2023 Tubular adenoma of colon [D12.6] 11/15/2022 Hyperkalemia [E87.5] 06/20/2023 09/14/2023 Secondary hyperparathyroidism of renal origin (*06/20/2023 Abnormal EKG [R94.31] 06/20/2023 09/14/2023 Hypertrophic cardiomyopathy (HCC) [I42.2] 11/08/2023 Congestive heart failure (HCC) [I50.9] History of echocardiogram [Z92.89] 11/07/2023 History of stress test [Z92.89] 06/21/2023 Encounter for screening for stenosis of carotid*03/27/2023 Arteriovenous fistula, acquired (HCC) [I77.0] 06/13/2024 Peripheral arterial disease (HCC) [I73.9] 07/10/2024 Migraine without aura, not intractable, without*05/21/2021 Encounter Status:Closed by ASUNCION DUBOSE on 01/01/25 CNPN Observed: 01/01/2025 12:00 AM Status: COMPLETED Source: [facility] Telephone (VASSMN) SANDY BRAVO ([id number]) 1965 F Date Time Provider Department 01/01/25 ANTHONY THOMASJohnny During your visit today, we recorded the following information about you: Kenia Johnson RN 01/01/2025 3:27 PM Signed Called patient in order to reschedule fistulogram. Patient did not answer the phone and unable to leave a voicemail. Estefani Govea RN 01/02/2025 8:55 AM Signed Addressed - see other telephone encounter from 01/01/25 for further documentation. Estefani Govea RN, BSN 8:54 AM January 02, 2025 Allergies As of Date: 01/01/2025 Noted Allergy Reaction CODEINE 12/11/2006 8 - GI Upset LATEX 03/22/2012 4 - Hives Comments: 2006 had reaction after surgery PENICILLINS 12/11/2006 7 - Swelling CHLORHEXIDINE 11/26/2018 2 - Rash Date Reviewed: 12/05/2024 Reviewed by: Edie Samayoa LPN - Fully Assessed Reason for Visit: Patient Update [1234] Cmt: Surgery Prescriptions as of 01/02/2025 - amLODIPine (NORVASC) 10 mg tablet Take 1 tablet by mouth once daily. - insulin lispro (HUMALOG KWIKPEN INSULIN) 100 unit/mL Inject 8 Units subcutaneously three times a day before meals. Add 1 unit for each 50 mg/dl above 150 - insulin needles, DISPOSABLE, (PEN NEEDLE) 31 gauge x 5/16 Use one needle per dose four times per day. - levothyroxine (SYNTHROID) 125 mcg tablet Take 1 tablet by mouth once daily. Take on empty stomach. For Thyroid - lisinopril (ZESTRIL) 40 mg tablet Take 1 tablet by mouth once daily. - SUMAtriptan (IMITREX) 50 mg tablet Take one tablet by mouth at onset of migraine. May repeat in 2 hours if ineffective - insulin glargine (LANTUS SOLOSTAR U-100 INSULIN) 100 unit/mL (3 mL) Inject 48 Units subcutaneously daily at bedtime. - atorvastatin (LIPITOR) 40 mg tablet Take 1 tablet by mouth daily at bedtime. - cloNIDine HCl (CATAPRES) 0.2 mg tablet Take 1 tablet by mouth two times a day. - metoprolol tartrate, short acting, (LOPRESSOR) 25 mg tablet Take 1 tablet by mouth every 12 hours. - nitroglycerin sublingual (NITROQUICK) 0.4 mg SL tablet Dissolve 1 tablet under the tongue every 5 minutes as needed. - ferric citrate 210 mg iron tab Take 1 tablet by mouth once daily. - docusate sodium (COLACE) 100 mg capsule Take 1 capsule by mouth twice daily as needed for Constipation. - NEPHRO-SONDRA 0.8 mg tab Take 1 tablet by mouth once daily. - blood sugar diagnostic (BLOOD GLUCOSE TEST) test strip Test blood sugar(s) 3 times daily. Dx: Type 2 DM - Uncontrolled E11.65 Insulin: Yes - Blood-Glucose Meter (BLOOD GLUCOSE MONITORING) monitoring kit 1 Each three times daily. E11.65. On insulin. - aspirin, enteric coated (ASPIRIN, ENTERIC COATED) 81 mg EC tablet Take 1 tablet by mouth once daily. Problem List As Of Date 01/01/2025 Noted Resolved Calculus of ureter [N20.1] 06/12/2007 03/22/2012 Urinary tract infection, site not specified [N3*06/12/2007 03/22/2012 Renal colic [N23] 06/12/2007 03/22/2012 Controlled type 2 diabetes mellitus without com*09/04/1985 HTN (hypertension) [I10] 09/04/2001 Hyperlipidemia [E78.5] 09/04/1999 Depression [F32.A] 09/04/2006 06/12/2023 Hypothyroid [E03.9] 03/30/2012 ASCVD (arteriosclerotic cardiovascular disease)*05/10/2012 Proteinuria [R80.9] 06/14/2013 CKD (chronic kidney disease) stage 3, GFR 30-59*07/17/2013 05/02/2017 CKD (chronic kidney disease) stage 4, GFR 15-29*04/05/2017 03/02/2018 CKD (chronic kidney disease) stage V requiring *03/01/2018 08/29/2019 ESRD on dialysis (HCC) [N18.6, Z99.2] 05/16/2019 VT (ventricular tachycardia) [I47.20] 05/17/2019 Steal syndrome dialysis vascular access (HCC) [*05/17/2019 02/23/2023 ESRD (end stage renal disease) (HCC) [N18.6] 04/21/2021 10/27/2023 Ventral hernia with obstruction, without gangre*12/09/2021 06/29/2023 Tubular adenoma of colon [D12.6] 11/15/2022 Hyperkalemia [E87.5] 06/20/2023 09/14/2023 Secondary hyperparathyroidism of renal origin (*06/20/2023 Abnormal EKG [R94.31] 06/20/2023 09/14/2023 Hypertrophic cardiomyopathy (HCC) [I42.2] 11/08/2023 Congestive heart failure (HCC) [I50.9] History of echocardiogram [Z92.89] 11/07/2023 History of stress test [Z92.89] 06/21/2023 Encounter for screening for stenosis of carotid*03/27/2023 Arteriovenous fistula, acquired (HCC) [I77.0] 06/13/2024 Peripheral arterial disease (HCC) [I73.9] 07/10/2024 Migraine without aura, not intractable, without*05/21/2021 Encounter Status:Closed by ESTEFANI GOVEA on 01/02/25 CNPN Observed: 12/31/2024 12:00 AM Status: COMPLETED Source: [facility] Telephone ([facility]) LAWRENCESANDY ([id number]) 1965 F Date Time Provider Department 12/31/24 RACHEL HIGUERA [facility] During your visit today, we recorded the following information about you: Ethan Muhammad RN 12/31/2024 1:11 PM Signed Called pt to give arrival time and instructions for fistulogram with Dr. Higuera Pt states that she has had a cold for the last week and is still sick Discussed with Dr. Higuera, pt should be rescheduled Informed pt and that she will receive a call back to reschedule She verbalized understanding All questions answered Ethan Muhammad RN Allergies As of Date: 12/31/2024 Noted Allergy Reaction CODEINE 12/11/2006 8 - GI Upset LATEX 03/22/2012 4 - Hives Comments: 2006 had reaction after surgery PENICILLINS 12/11/2006 7 - Swelling CHLORHEXIDINE 11/26/2018 2 - Rash Date Reviewed: 12/05/2024 Reviewed by: Edie Samayoa LPN - Fully Assessed Reason for Visit: Procedure [88] Cmt: SHIRA fistulogram Prescriptions as of 12/31/2024 - amLODIPine (NORVASC) 10 mg tablet Take 1 tablet by mouth once daily. - insulin lispro (HUMALOG KWIKPEN INSULIN) 100 unit/mL Inject 8 Units subcutaneously three times a day before meals. Add 1 unit for each 50 mg/dl above 150 - insulin needles, DISPOSABLE, (PEN NEEDLE) 31 gauge x 5/16 Use one needle per dose four times per day. - levothyroxine (SYNTHROID) 125 mcg tablet Take 1 tablet by mouth once daily. Take on empty stomach. For Thyroid - lisinopril (ZESTRIL) 40 mg tablet Take 1 tablet by mouth once daily. - SUMAtriptan (IMITREX) 50 mg tablet Take one tablet by mouth at onset of migraine. May repeat in 2 hours if ineffective - insulin glargine (LANTUS SOLOSTAR U-100 INSULIN) 100 unit/mL (3 mL) Inject 48 Units subcutaneously daily at bedtime. - atorvastatin (LIPITOR) 40 mg tablet Take 1 tablet by mouth daily at bedtime. - cloNIDine HCl (CATAPRES) 0.2 mg tablet Take 1 tablet by mouth two times a day. - metoprolol tartrate, short acting, (LOPRESSOR) 25 mg tablet Take 1 tablet by mouth every 12 hours. - nitroglycerin sublingual (NITROQUICK) 0.4 mg SL tablet Dissolve 1 tablet under the tongue every 5 minutes as needed. - ferric citrate 210 mg iron tab Take 1 tablet by mouth once daily. - docusate sodium (COLACE) 100 mg capsule Take 1 capsule by mouth twice daily as needed for Constipation. - NEPHRO-SONDRA 0.8 mg tab Take 1 tablet by mouth once daily. - blood sugar diagnostic (BLOOD GLUCOSE TEST) test strip Test blood sugar(s) 3 times daily. Dx: Type 2 DM - Uncontrolled E11.65 Insulin: Yes - Blood-Glucose Meter (BLOOD GLUCOSE MONITORING) monitoring kit 1 Each three times daily. E11.65. On insulin. - aspirin, enteric coated (ASPIRIN, ENTERIC COATED) 81 mg EC tablet Take 1 tablet by mouth once daily. Problem List As Of Date 12/31/2024 Noted Resolved Calculus of ureter [N20.1] 06/12/2007 03/22/2012 Urinary tract infection, site not specified [N3*06/12/2007 03/22/2012 Renal colic [N23] 06/12/2007 03/22/2012 Controlled type 2 diabetes mellitus without com*09/04/1985 HTN (hypertension) [I10] 09/04/2001 Hyperlipidemia [E78.5] 09/04/1999 Depression [F32.A] 09/04/2006 06/12/2023 Hypothyroid [E03.9] 03/30/2012 ASCVD (arteriosclerotic cardiovascular disease)*05/10/2012 Proteinuria [R80.9] 06/14/2013 CKD (chronic kidney disease) stage 3, GFR 30-59*07/17/2013 05/02/2017 CKD (chronic kidney disease) stage 4, GFR 15-29*04/05/2017 03/02/2018 CKD (chronic kidney disease) stage V requiring *03/01/2018 08/29/2019 ESRD on dialysis (HCC) [N18.6, Z99.2] 05/16/2019 VT (ventricular tachycardia) [I47.20] 05/17/2019 Steal syndrome dialysis vascular access (HCC) [*05/17/2019 02/23/2023 ESRD (end stage renal disease) (HCC) [N18.6] 04/21/2021 10/27/2023 Ventral hernia with obstruction, without gangre*12/09/2021 06/29/2023 Tubular adenoma of colon [D12.6] 11/15/2022 Hyperkalemia [E87.5] 06/20/2023 09/14/2023 Secondary hyperparathyroidism of renal origin (*06/20/2023 Abnormal EKG [R94.31] 06/20/2023 09/14/2023 Hypertrophic cardiomyopathy (HCC) [I42.2] 11/08/2023 Congestive heart failure (HCC) [I50.9] History of echocardiogram [Z92.89] 11/07/2023 History of stress test [Z92.89] 06/21/2023 Encounter for screening for stenosis of carotid*03/27/2023 Arteriovenous fistula, acquired (HCC) [I77.0] 06/13/2024 Peripheral arterial disease ([facility]) [I73.9] 07/10/2024 Migraine without aura, not intractable, without*05/21/2021 Encounter Status:Closed by ETHAN MUHAMMAD on 12/31/24 ARYA Observed: 12/30/2024 12:00 AM Status: COMPLETED Source: [facility] Telephone (YULIN) SANDY BRAVO ([id number]) 1965 F Date Time Provider Department 12/30/24 ANTHONY THOMAS During your visit today, we recorded the following information about you: aRbia Coles 12/30/2024 10:26 AM Signed Referral from [facility] for the patient to be scheduled for a fistulagram due to high venous pressure and cannulation issues. Referral has been scanned into the patient's chart. Vita Purdy RN 12/30/2024 2:52 PM Signed Spoke with patient. Agrees to fistulogram Monday 01/[address] Higuera at [place]. JESSICA Gorman Allergies As of Date: 12/30/2024 Noted Allergy Reaction CODEINE 12/11/2006 8 - GI Upset LATEX 03/22/2012 4 - Hives Comments: 2005 had reaction after surgery PENICILLINS 12/11/2006 7 - Swelling CHLORHEXIDINE 11/26/2018 2 - Rash Date Reviewed: 12/05/2024 Reviewed by: Edie Samayoa LPN - Fully Assessed Reason for Visit: Patient Update [1234] Prescriptions as of 12/30/2024 - amLODIPine (NORVASC) 10 mg tablet Take 1 tablet by mouth once daily. - insulin lispro (HUMALOG KWIKPEN INSULIN) 100 unit/mL Inject 8 Units subcutaneously three times a day before meals. Add 1 unit for each 50 mg/dl above 150 - insulin needles, DISPOSABLE, (PEN NEEDLE) 31 gauge x 5/16 Use one needle per dose four times per day. - levothyroxine (SYNTHROID) 125 mcg tablet Take 1 tablet by mouth once daily. Take on empty stomach. For Thyroid - lisinopril (ZESTRIL) 40 mg tablet Take 1 tablet by mouth once daily. - SUMAtriptan (IMITREX) 50 mg tablet Take one tablet by mouth at onset of migraine. May repeat in 2 hours if ineffective - insulin glargine (LANTUS SOLOSTAR U-100 INSULIN) 100 unit/mL (3 mL) Inject 48 Units subcutaneously daily at bedtime. - atorvastatin (LIPITOR) 40 mg tablet Take 1 tablet by mouth daily at bedtime. - cloNIDine HCl (CATAPRES) 0.2 mg tablet Take 1 tablet by mouth two times a day. - metoprolol tartrate, short acting, (LOPRESSOR) 25 mg tablet Take 1 tablet by mouth every 12 hours. - nitroglycerin sublingual (NITROQUICK) 0.4 mg SL tablet Dissolve 1 tablet under the tongue every 5 minutes as needed. - ferric citrate 210 mg iron tab Take 1 tablet by mouth once daily. - docusate sodium (COLACE) 100 mg capsule Take 1 capsule by mouth twice daily as needed for Constipation. - NEPHRO-SONDRA 0.8 mg tab Take 1 tablet by mouth once daily. - blood sugar diagnostic (BLOOD GLUCOSE TEST) test strip Test blood sugar(s) 3 times daily. Dx: Type 2 DM - Uncontrolled E11.65 Insulin: Yes - Blood-Glucose Meter (BLOOD GLUCOSE MONITORING) monitoring kit 1 Each three times daily. E11.65. On insulin. - aspirin, enteric coated (ASPIRIN, ENTERIC COATED) 81 mg EC tablet Take 1 tablet by mouth once daily. Problem List As Of Date 12/30/2024 Noted Resolved Calculus of ureter [N20.1] 06/12/2007 03/22/2012 Urinary tract infection, site not specified [N3*06/12/2007 03/22/2012 Renal colic [N23] 06/12/2007 03/22/2012 Controlled type 2 diabetes mellitus without com*09/04/1985 HTN (hypertension) [I10] 09/04/2001 Hyperlipidemia [E78.5] 09/04/1999 Depression [F32.A] 09/04/2006 06/12/2023 Hypothyroid [E03.9] 03/30/2012 ASCVD (arteriosclerotic cardiovascular disease)*05/10/2012 Proteinuria [R80.9] 06/14/2013 CKD (chronic kidney disease) stage 3, GFR 30-59*07/17/2013 05/02/2017 CKD (chronic kidney disease) stage 4, GFR 15-29*04/05/2017 03/02/2018 CKD (chronic kidney disease) stage V requiring *03/01/2018 08/29/2019 ESRD on dialysis (HCC) [N18.6, Z99.2] 05/16/2019 VT (ventricular tachycardia) [I47.20] 05/17/2019 Steal syndrome dialysis vascular access (HCC) [*05/17/2019 02/23/2023 ESRD (end stage renal disease) (HCC) [N18.6] 04/21/2021 10/27/2023 Ventral hernia with obstruction, without gangre*12/09/2021 06/29/2023 Tubular adenoma of colon [D12.6] 11/15/2022 Hyperkalemia [E87.5] 06/20/2023 09/14/2023 Secondary hyperparathyroidism of renal origin (*06/20/2023 Abnormal EKG [R94.31] 06/20/2023 09/14/2023 Hypertrophic cardiomyopathy (HCC) [I42.2] 11/08/2023 Congestive heart failure (HCC) [I50.9] History of echocardiogram [Z92.89] 11/07/2023 History of stress test [Z92.89] 06/21/2023 Encounter for screening for stenosis of carotid*03/27/2023 Arteriovenous fistula, acquired (HCC) [I77.0] 06/13/2024 Peripheral arterial disease (HCC) [I73.9] 07/10/2024 Migraine without aura, not intractable, without*05/21/2021 Encounter Status:Closed by RABIA COLES on 12/30/24 BUN Collected: 9:13 AM Status: F Source: [facility] [place] TYPE CODE TESTS RESULT OUT OF RANGE REFERENCE UNITS LAB BUN(LOINC) BUN 7 7 - 18 mg/dl Performed By: #### [id number] ## ## [facility],[address] [place] [address] HBV SURFACE AG SER QL Collected: 12/27/2024 5:40 AM Status: F Source: [facility] Order Comment: Specimen Type : BLOOD SPECIMEN Ordering Facility: [facility] Address: [address] [place] [address] TYPE CODE TESTS RESULT OUT OF RANGE REFERENCE UNITS LAB 5195-3(LOINC) HBV surface Ag Ser Ql Negative Negative Performed By: #### [id number] ## ## [facility] CLIA [id number] [address] [place] [address] [place] POTASSIUM Collected: 5:40 AM Status: F Source: [facility] [place] TYPE CODE TESTS RESULT OUT OF RANGE REFERENCE UNITS LAB POTASSIUM(LOINC) POTASSIUM 4.5 3.5 - 5.1 mmo l/L Performed By: #### [id number] ## ## [facility],[address] [place] [address] CBC + DIFF Collected: 5 5:40 AM Status: F Source: [facility] [place] TYPE CODE TESTS RESULT OUT OF RANGE REFERENCE UNITS LAB CBC + DIFF(LOINC) CBC + DIFF Result Comment: CBC-COMPLETE BLOOD COUNT LAB WBC(LOINC) WBC 6.3 4.5 - 10.8 x 10EE3/UL LAB RBC(LOINC) RBC 3.76 Low 4.10 - 5.30 x 10EE6/UL LAB HEMOGLOBIN(BENEDICTO NC) HEMOGLOBIN 11.2 Low 12.0 - 16.0 g/dl LAB HEMATOCRIT(BENEDICTO NC) HEMATOCRIT 33.5 Low 34.0 - 46.0 % LAB MCV(LOINC) MCV 89 80 - 99 fl LAB MCH(LOINC) MCH 30 27 - 33 pg LAB MCHC(LOINC) MCHC 34 32 - 36 X10 3 LAB RDW/CV(LOINC) RDW/CV 14.1 12.0 - 15.6 % LAB PLATELET(LOINC ) PLATELET 198 150 - 450 x10EE3/UL LAB MPV(LOINC) MPV 7.6 6.6 - 10.5 fl Result Comment: AUTOMATED DI FFERENTIAL LAB NEUT %(LOINC) NEUT % 69.6 46.0 - 76.0 % LAB LYMPH %(LOINC) LYMPH % 22.5 20.0 - 45.0 % LAB MONOS %(LOINC) MONOS % 6.0 0.0 - 10.0 % LAB EO %(LOINC) EO % 1.5 0.0 - 7.0 % LAB BASO %(LOINC) BASO % 0.4 0.0 - 2.0 % LAB Lymph #(LOINC) Lymph # 1.41 0.80 - 2.80 x10EE 3/UL LAB Neut #(LOINC) Neut # 4.35 1.50 - 7.10 x10EE3 /UL LAB Cataño #(LOINC) Cataño # 0.38 0.20 - 1.00 x10EE3 /UL LAB EO #(LOINC) EO # 0.09 0.00 - 0.50 x10EE3/U L LAB Baso #(LOINC) Baso # 0.02 0.00 - 0.10 x10EE3 /UL LAB MANUAL DIFF(LOINC) MANUAL DIFF SEE BELOW LAB SEGS(LOINC) SEGS 70 46 - 76 % LAB LYMPH(LOINC) LYMPH 21 20 - 45 % LAB MONOS(LOINC) MONOS 8 0 - 10 % LAB EO(LOINC) EO 1.0 0.0 - 7.0 % LAB CELL COUNT(LOINC) CELL COUNT 100 LAB MORPHOLOGY(BENEDICTO NC) MORPHOLOGY NORMAL Performed By: #### [id number] ## ## [facility],[address] [place], [place] [address] HEP B SURFACE AG [CCL] Collected: 12/27/2024 5:40 AM Status: F Source: [facility] [place] TYPE CODE TESTS RESULT OUT OF RANGE REFERENCE UNITS LAB HBSAG(LOINC) Hepatitis B Surf. Ag Negative Negative Result Comment: [facility] [address] [place] [address] Clifton Nathan III, M.D. [id number] Performed By: #### [id number] ## ## [facility],[address] [place], [place] [id number] BUN Collected: 5:40 AM Status: F Source: [facility] [place] TYPE CODE TESTS RESULT OUT OF RANGE REFERENCE UNITS LAB BUN(LOINC) BUN 31 High 7 - 18 mg/dl Performed By: #### [id number] ## ## [place] [id number] CNPN Observed: 12/26/2024 12:00 AM Status: COMPLETED Source: [facility] Telephone (VASIVYN) SANDY BRAVO ([id number]) 1965 F Date Time Provider Department 12/26/24 ANTHONY THOMAS During your visit today, we recorded the following information about you: Queta Carmen 12/26/2024 2:53 PM Signed Ariel choi. This patient was scheduled to come in on january 03 since she is having issues with her fistula. The appointment was cancelled by gerry by way of your request. The patient called back and wanted to be rescheduled since she is having issues and can not wait til July. Also, the patient is asking if someone can send [facility] a fax? (Not sure what fax she is referring to be advised I would pass the message) Allergies As of Date: 12/26/2024 Noted Allergy Reaction CODEINE 12/11/2006 8 - GI Upset LATEX 03/22/2012 4 - Hives Comments: 2006 had reaction after surgery PENICILLINS 12/11/2006 7 - Swelling CHLORHEXIDINE 11/26/2018 2 - Rash Date Reviewed: 12/05/2024 Reviewed by: Edie Samayoa LPN - Fully Assessed Prescriptions as of 12/26/2024 - amLODIPine (NORVASC) 10 mg tablet Take 1 tablet by mouth once daily. - insulin lispro (HUMALOG KWIKPEN INSULIN) 100 unit/mL Inject 8 Units subcutaneously three times a day before meals. Add 1 unit for each 50 mg/dl above 150 - insulin needles, DISPOSABLE, (PEN NEEDLE) 31 gauge x 5/16 Use one needle per dose four times per day. - levothyroxine (SYNTHROID) 125 mcg tablet Take 1 tablet by mouth once daily. Take on empty stomach. For Thyroid - lisinopril (ZESTRIL) 40 mg tablet Take 1 tablet by mouth once daily. - SUMAtriptan (IMITREX) 50 mg tablet Take one tablet by mouth at onset of migraine. May repeat in 2 hours if ineffective - insulin glargine (LANTUS SOLOSTAR U-100 INSULIN) 100 unit/mL (3 mL) Inject 48 Units subcutaneously daily at bedtime. - atorvastatin (LIPITOR) 40 mg tablet Take 1 tablet by mouth daily at bedtime. - cloNIDine HCl (CATAPRES) 0.2 mg tablet Take 1 tablet by mouth two times a day. - metoprolol tartrate, short acting, (LOPRESSOR) 25 mg tablet Take 1 tablet by mouth every 12 hours. - nitroglycerin sublingual (NITROQUICK) 0.4 mg SL tablet Dissolve 1 tablet under the tongue every 5 minutes as needed. - ferric citrate 210 mg iron tab Take 1 tablet by mouth once daily. - docusate sodium (COLACE) 100 mg capsule Take 1 capsule by mouth twice daily as needed for Constipation. - NEPHRO-SONDRA 0.8 mg tab Take 1 tablet by mouth once daily. - blood sugar diagnostic (BLOOD GLUCOSE TEST) test strip Test blood sugar(s) 3 times daily. Dx: Type 2 DM - Uncontrolled E11.65 Insulin: Yes - Blood-Glucose Meter (BLOOD GLUCOSE MONITORING) monitoring kit 1 Each three times daily. E11.65. On insulin. - aspirin, enteric coated (ASPIRIN, ENTERIC COATED) 81 mg EC tablet Take 1 tablet by mouth once daily. Problem List As Of Date 12/26/2024 Noted Resolved Calculus of ureter [N20.1] 06/12/2007 03/22/2012 Urinary tract infection, site not specified [N3*06/12/2007 03/22/2012 Renal colic [N23] 06/12/2007 03/22/2012 Controlled type 2 diabetes mellitus without com*09/04/1985 HTN (hypertension) [I10] 09/04/2001 Hyperlipidemia [E78.5] 09/04/1999 Depression [F32.A] 09/04/2006 06/12/2023 Hypothyroid [E03.9] 03/30/2012 ASCVD (arteriosclerotic cardiovascular disease)*05/10/2012 Proteinuria [R80.9] 06/14/2013 CKD (chronic kidney disease) stage 3, GFR 30-59*07/17/2013 05/02/2017 CKD (chronic kidney disease) stage 4, GFR 15-29*04/05/2017 03/02/2018 CKD (chronic kidney disease) stage V requiring *03/01/2018 08/29/2019 ESRD on dialysis (HCC) [N18.6, Z99.2] 05/16/2019 VT (ventricular tachycardia) [I47.20] 05/17/2019 Steal syndrome dialysis vascular access (HCC) [*05/17/2019 02/23/2023 ESRD (end stage renal disease) (HCC) [N18.6] 04/21/2021 10/27/2023 Ventral hernia with obstruction, without gangre*12/09/2021 06/29/2023 Tubular adenoma of colon [D12.6] 11/15/2022 Hyperkalemia [E87.5] 06/20/2023 09/14/2023 Secondary hyperparathyroidism of renal origin (*06/20/2023 Abnormal EKG [R94.31] 06/20/2023 09/14/2023 Hypertrophic cardiomyopathy (HCC) [I42.2] 11/08/2023 Congestive heart failure (HCC) [I50.9] History of echocardiogram [Z92.89] 11/07/2023 History of stress test [Z92.89] 06/21/2023 Encounter for screening for stenosis of carotid*03/27/2023 Arteriovenous fistula, acquired (HCC) [I77.0] 06/13/2024 Peripheral arterial disease (HCC) [I73.9] 07/10/2024 Migraine without aura, not intractable, without*05/21/2021 Encounter Status:Closed by QUETA CARMEN on 12/26/24 COMPLETE BLOOD COUNT PANEL Collected: 12/19/2024 2:37 PM Status: F Source: [facility] TYPE CODE TESTS RESULT OUT OF RANGE REFERENCE UNITS LAB 6690-2(LOINC) Leukocytes 4.7 4.4-11.3 x10*3/ uL LAB 35465-4(LOINC) Erythrocytes.nuc l eated/100 leukocytes 0.0 0.0-0.0 /100 WBCs LAB 789-8(LOINC) Erythrocytes 3.59 Low 4.00-5.20 x10* 6/uL LAB 718-7(LOINC) Hemoglobin 10.5 Low 12.0-16.0 g/dL LAB 4544-3(LOINC) Hematocrit 32.6 Low 36.0-46.0 % LAB 787-2(LOINC) Erythrocyte mean corpuscular volume 91 80-100 fL LAB 785-6(LOINC) Erythrocyte mean corpuscular hemoglobin 29.2 26.0-34.0 pg LAB 786-4(LOINC) Erythrocyte mean corpuscular hemoglobin concentration 32.2 32.0-36.0 g/dL LAB 788-0(LOINC) Erythrocyte distribution width 13.5 11.5-14.5 % LAB 777-3(LOINC) Platelets 200 150-450 x10*3/uL Performed By: #### 07675-4 # ### LEVI Garcia ([id number]) [facility] ([facility]) [address] [place] [address] 66970 HEMOGLOBIN A1C/HEMOGLOBIN.TOTAL Collect ed: 12/19/2024 2:37 PM Status: F Source: [facility] Order Comment: Diagnosis of Diabetes-Adults Non-Diabetic: < or = 5.6% Increased risk for developing diabetes: 5.7-6.4% Diagnostic of diabetes: > or = 6.5% TYPE CODE TESTS RESULT OUT OF RANGE REFERENCE UNITS LAB 4548-4(LOINC ) Hemoglobin A1c/Hemoglob in.total 6.8 High See comment % LAB 87420-5(LOIN C) Estimated average glucose 148 Not Established mg/dL Performed By: #### 4548-4 ## ## LEVI Garcia ([id number]) [facility] ([facility]) [address] [place] [address] 71667 PHOSPHATE Collected: 2:37 PM Status: F Source: [facility] TYPE CODE TESTS RESULT OUT OF RANGE REFERENCE UNITS LAB 2777-1(LOINC) Phosphate 2.9 2.5-4.9 mg/dL Result Comment: The performa nce characteristics of phosphorus testing in heparinized plasma have been validated by the individual laboratory site where testing is performed. Testing on heparinized plasma is not approved by the FDA; however, such approval is not necessary. Performed By: #### 2777-1 ## ## LEVI Garcia ([id number]) [facility] ([facility]) [address] [place] [address] 31237 UREA NITROGEN Collected: 12/19/2024 2:37 PM Status: F Source: [facility] TYPE CODE TESTS RESULT OUT OF RANGE REFERENCE UNITS LAB 3094-0(LOINC) Urea nitrogen 21 6-23 mg/d L Performed By: #### 3094-0 ## ## LEVI Garcia ([id number]) [facility] ([facility]) [address] [place] [address] 10869 HEPATIC FUNCTION 2000 PANEL Collected: 12/19/2024 2:3 7 PM Status: F Source: [facility] TYPE CODE TESTS RESULT OUT OF RANGE REFERENCE UNITS LAB 65677-2(LOINC ) Albumin 4.0 3.4-5.0 g/dL LAB 1974-2(LOINC) Bilirubin 0.5 0.0-1.2 mg/dL LAB 1967-7(LOINC) Bilirubin.glucur mojgan dated+Bilirubin.alb umin bound 0.1 0.0-0.3 mg/dL LAB 6768-6(LOINC) Alkaline phosphatase 160 High 33-136 U/L LAB 1743-4(LOINC) Alanine aminotransferase 12 7-45 U/L Result Comment: Patients chapo ated with Sulfasalazine may generate falsely decreased results for ALT. LAB 94110-0(LOINC ) Aspartate aminotransferase 22 9-39 U/L LAB 2885-2(LOINC) Protein 6.5 6.4-8.2 g/dL Performed By: #### 35184-2 # ### LEVI Garcia ([id number]) [facility] ([facility]) [address] [place] [address] CREATININE Collected: 5 2:37 PM Status: F Source: [facility] TYPE CODE TESTS RESULT OUT OF RANGE REFERENCE UNITS LAB 2160-0(LOINC) Creatinine 5.09 High 0.50-1.05 mg/dL LAB 93399-8(LOINC) Glomerular filtration rate/1.73 sq M.predicted 9 Low >60 mL/min/1 .73m*2 Result Comment: Calculations of estimated GFR are performed using the 2020 CKD- EPI Study Refit equation without the race variable for the IDMS-Traceable creatinine methods. https://jasn.asnjournals.org/content/early//ASN.0567264366 Performed By: #### 2160-0 ## ## LEVI Garcia ([id number]) [facility] ([facility]) [address] [place] [address] 77564 AMYLASE Collected: 5 2:37 PM Status: F Source: [facility] TYPE CODE TESTS RESULT OUT OF RANGE REFERENCE UNITS LAB 1798-8(LOINC) Amylase 23 Low 29-103 U/L Performed By: #### 1798-8 ## ## LEVI Garcia ([id number]) [facility] ([facility]) [id number] [place] [address] LIPID PANEL NON-FASTING Collected: 12/19/2024 2:37 PM Status: F Source: [facility] TYPE CODE TESTS RESULT OUT OF RANGE REFERENCE UNITS LAB 3-3(LOINC) Cholesterol 129 0-199 mg/dL Result Comment: Age Desirabl e Borderline High High 0-19 Y 0 - 169 170 - 199 >/= 200 20-24 Y 0 - 189 190 - 224 >/= 225 >24 Y 0 - 199 200 - 239 >/= 240 All ranges are based on fasting samples. Specific therapeutic targets will vary based on patient-specific cardiac risk. Pediatric guidelines reference:Pediatrics 2011, 128(S5).Adult guidelines reference: NCEP ATPIII Guidelines,JURGEN 2001, 258:2486-97 Venipuncture immediately after or during the administration of Metamizole may lead to falsely low results. Testing should be performed immediately prior to Metamizole dosing. LAB 9(LOINC) Cholesterol.in HDL 68.8 mg/dL Result Comment: Age Very Low Low Normal High 0-19 Y < 35 < 40 40-45 ---- 20-24 Y ---- < 40 >45 ---- >24 Y ---- < 40 40-60 >60 LAB CHHDL CHOLESTEROL/HDL RATIO 1.9 NA Result Comment: Ref Values Desirable < 3.4 High Risk > 5.0 LAB NHDL2 NON-HDL CHOLESTEROL 60 0-149 mg/dL Result Comment: Age Desiable Borderline High High Very High 0-19 Y 0 - 119 120 - 144 >/= 145 >/= 160 20-24 Y 0 - 149 150 - 189 >/= 190 ---- >24 Y 30 MG/DL ABOVE LDL CHOLESTEROL GOAL Performed By: #### LIPIN ### # LEVI Garcia ([id number]) [facility] ([facility]) [address] [place], [place] [id number] HEPATITIS B VIRUS SURFACE AB Collected: 12/19/2024 2:37 PM Status: F Source: [facility] TYPE CODE TESTS RESULT OUT OF RANGE REFERENCE UNITS LAB 78658-0(LOINC) Hepatitis B virus surface Ab 134.9 High <10.0 mIU/mL Result Comment: Interpretive Criteria: <10 mIU/mL Nonreactive >=10 mIU/mL Reactive Biotin interference may cause falsely decreased results. Patients taking a Biotin dose of up to 5 mg/day should refrain from taking Biotin for 24 hours before sample collection. Providers may contact their local laboratory for further information. Performed By: #### 69941-7 # ### LEVI Garcia ([id number]) [facility] ([facility]) [address] [place] [address] HEPATITIS B VIRUS SURFACE AG Collected: 12/19/2024 2:37 PM Status: F Source: [facility] TYPE CODE TESTS RESULT OUT OF RANGE REFERENCE UNITS LAB 5196-1([facility]) Hepatitis B virus surface Ag Nonreactive Nonreactive Result Comment: Biotin inter ference may cause falsely decreased results. Patients taking a Biotin dose of up to 5 mg/day should refrain from taking Biotin for 24 hours before sample collection. Providers may contact their local laboratory for further information. Performed By: #### 5196-1 ## ## LEVI Garcia ([id number]) [facility] ([facility]) [address] [place] [address] HIV 1+2 AB+HIV1 P24 AG Collected: 12/19 2:37 PM Status: F Source: [facility] Order Comment: HIV Ag/Ab scr een is performed using the Siemens Atellica HIV Ag/Ab Combo assay which detects the presence of HIV p24 antigen as well as antibodies to HIV-1 (Group M and O) and HIV-2. No laboratory evidence of HIV infection. If acute HIV infection is suspected, consider testing for HIV RNA by PCR (viral load). TYPE CODE TESTS RESULT OUT OF RANGE REFERENCE UNITS LAB 87960-1(LOINC) HIV 1+2 Ab+HIV1 p24 Ag Nonreactive Nonreactive Performed By: #### 44633-4 # ### LEVI Garcia ([id number]) [facility] ([facility]) [address] [place] [address] HEPATITIS C VIRUS AB Collected: 2:37 PM Status: F Source: [facility] TYPE CODE TESTS RESULT OUT OF RANGE REFERENCE UNITS LAB 27365-6(LOINC) Hepatitis C virus Ab NON-REACTIVE Nonreactive Result Comment: Results from patients taking biotin supplements or receiving high-dose biotin therapy should be interpreted with caution due to possible interference with this test. Providers may contact their local laboratory for further information. Performed By: #### 10108-7 # ### LEVI Garcia ([id number]) [facility] ([facility]) [address] [place] [address] HEPATITIS B VIRUS CORE AB Collected: 12/19/2024 2:37 PM Status: F Source: [facility] TYPE CODE TESTS RESULT OUT OF RANGE REFERENCE UNITS LAB 40538-9(INC) Hepatitis B virus core Ab Nonreactive Nonreactive Performed By: #### 73852-3 # ### LEVI Garcia ([id number]) [facility] ([facility]) [address] [place] [address] COAGULATION TISSUE FACTOR INDUCED Collected: 12/19/2024 2:37 PM Status: F Source: [facility] TYPE CODE TESTS RESULT OUT OF RANGE REFERENCE UNITS LAB 5902-2(LOINC) Coagulation tissue factor induced 10.2 9.8-12.4 seconds LAB 6301-6(LOINC) Coagulation tissue factor induced.INR 0.9 0.9-1.1 NA Performed By: #### 5902-2 ## ## LEVI Garcia ([id number]) [facility] ([facility]) [address] [place] [address] CYTOMEGALOVIRUS AB.IGG AVIDITY Collected: 12/19/2024 2:37 PM Status: F Source: [facility] TYPE CODE TESTS RESULT OUT OF RANGE REFERENCE UNITS LAB 35220-6(LOIN C) Cytomegalovirus Ab.IgG avidity Reactive Abnormal Nonreactive Performed By: #### 62355-8 # ### LEVI Garcia ([id number]) [facility] ([facility]) [address] [place] [address] 26646 C PEPTIDE Collected: 2:37 PM Status: F Source: [facility] TYPE CODE TESTS RESULT OUT OF RANGE REFERENCE UNITS LAB 1986-9(LOINC) C peptide 1.5 0.7-3.9 ng/mL Performed By: #### 1986-9 ## ## LEVI Garcia ([id number]) [facility] ([facility]) [address] [place], [place] [id number] ABO Collected: 2:37 PM Status: F Source: [facility] TYPE CODE TESTS RESULT OUT OF RANGE REFERENCE UNITS LAB 883-9(LOINC) ABO group A LAB 1305-2(LOINC) D Ag POS Performed By: #### 35504-8 # ### LEVI Garcia ([id number]) [facility] ([facility]) [address] [place] [address] TREPONEMA PALLIDUM AB.IGG+IGM Collected : 12/19/2024 2:37 PM Status: F Source: [facility] TYPE CODE TESTS RESULT OUT OF RANGE REFERENCE UNITS LAB 59908-2(LOINC) Treponema pallidum Ab.IgG+IgM Nonreactive Nonreactive Result Comment: No significa nt level of Treponema pallidum antibody detected. Repeat testing in 2 to 4 weeks may be considered if early infection or incubating syphilis infection is suspected. Performed By: #### 53799-9 # ### LEVI Garcia ([id number]) [facility] ([facility]) [address] [place] [address] VARICELLA ZOSTER VIRUS AB.IGG Collected : 12/19/2024 2:37 PM Status: F Source: [facility] Order Comment: NEGATIVE: No IgG antibodies specific to VZV detected. It is likely that the patient has not had a previous exposure to VZV through infection or vaccination. Alternatively, the patient may have been exposed to VZV but a failure to respond may indicate immunodeficiency. EQUIVOCAL:Equivocal results; obtain additional sample for retesting. POSITIVE: IgG antibody to VZV detected. This may indicate that the patient was exposed to VZV through infection or vaccination. The interpretation of serological tests should take into account the immunological status of the patient. Test results for patients, including immunocompromised patients, neonates, and pediatric patients, reflect their capacity to respond immunologically to the virus as well as their exposure to the pathogen. Patients treated with IVIG may demonstrate altered results in serological assays. TYPE CODE TESTS RESULT OUT OF RANGE REFERENCE UNITS LAB 26837-6(LOINC ) Varicella zoster virus Ab.IgG POSITIVE Abnormal Negative LAB IVARG VARICELLA ZOSTER IGG INDEX 4.2 High <=0.8 IA Performed By: #### 83376-4 # ### LEVI Garcia ([id number]) [facility] ([facility]) [address] [place] [address] 44769 FARRAH-SANCHEZ VIRUS ANTIBODY PANEL Collected: 12/19/2024 2:37 PM Status: F Source: [facility] Order Comment: EBV INTERPRET ATION CHART PRIMARY ACUTE VCA-IGG: +/- VCA-IGM: +/- EA-IGG: +/- NA-IGG: - LATE ACUTE VCA-IGG: + VCA-IGM: +/- EA-IGG: +/- NA-IGG: +/-RECOVERING VCA-IGG: + VCA-IGM: - EA-IGG: + NA-IGG: - PREVIOUS INFECTION VCA-IGG: + VCA-IGM: - EA-IGG: - NA-IGG: +/- TYPE CODE TESTS RESULT OUT OF RANGE REFERENCE UNITS LAB 5157-3(LOINC) Farrah Sanchez virus capsid Ab.IgG Positive Abnormal Negative LAB 5159-9(LOINC) Farrah Sanchez virus capsid Ab.IgM Negative Negative LAB 80487-5(LOINC) Farrah Sanchez virus early Ab.IgG Negative Negative LAB 45093-2(LOINC) Farrah Sanchez virus nuclear Ab Positive Abnormal Negative Performed By: #### EBVP1 ### # LEVI Garcia ([id number]) [facility] ([facility]) [address] [place] [address] 18663 HLA NEW KIDNEY,K/P EVALUATIO N PANEL Collected: 12/19/2024 2:37 PM Status: F Source: [facility] Order Comment: Test performe d at: [facility], 6th [address] [address] [place] [address] TYPE CODE TESTS RESULT OUT OF RANGE REFERENCE UNITS LAB 81744-4(LOINC ) HLA-A AND B AND C (class I) typing panel LAB 79144-8(LOINC ) HLA-DRB1 LAB 54476-1(LOINC ) HLA-DQB1 LAB 19397-9(LOINC ) HLA-DP2 LAB FLAUT FLOW AUTOCROSSMATCH LAB HLA1S HLA CLASS I AB SCREEN,FC LAB HLA2S HLA CLASS II AB SCREEN,FC LAB HLARES HLA RESULTS For collection only. Performed By: #### SOLO #### MISTY Munoz ([id number]) [facility] ([facility]) [address] [place] [address] MYCOBACTERIUM TUBERCULOSIS STIMULATED GAMMA INTERFERON Collected: 12/19/2024 2:37 PM Status: F Source: [facility] TYPE CODE TESTS RESULT OUT OF RANGE REFERENCE UNITS LAB 91420-3(LOINC) Mycobacterium tuberculosis stimulated gamma interferon Negative Negative Result Comment: A negative test result does not exclude the possibility of exposure to or infection with Mycobacterium tuberculosis (M. tuberculosis). Patients with recent exposure to TB infected individuals exhibiting a negative T-SPOT.TB result should be considered for retesting within 6 weeks or if other relevant clinical symptoms indicate. Results from T-SPOT.TB testing must be used in conjunction with each individual's epidemiological history, current medical status, and results of other diagnostic evaluations. The T-SPOT.TB test is qualitative and results are reported as positive, borderline, or negative, given that the test controls perform as expected. In line with the Centers for Disease Control and Prevention's 2010 recommendation to report quantitative measurements alongside the qualitative result, the laboratory provides spot counts for informational purposes only. The T-SPOT.TB test should not be interpreted as a quantitative test. LAB 32951-5(LOINC) Mycobacterium tuberculosis stimulated gamma interferon.ESAT- 6 Ag spot count 0 LAB 52175-5(LOINC) Mycobacterium tuberculosis stimulated gamma interferon.CFP10 Ag spot count 0 LAB 56341-8(LOINC) Gamma interferon.negat dinorah control spot count Passed LAB 34884-3(LOINC) Mitogen stimulated gamma interferon.posit dinorah control spot count Passed Result Comment: For additional information, please refer to http://education.[employer] Match[employer].Zazuba/faq/TZJ297 (This link is being provided for informational/ educational purposes only.) Performed By: #### 24595-2 # ### LAM MATHEW ([id number]) [address] [facility] [address] [place], RUBEN DRUG PROFILE 9, BLOOD W/ REF CHRIS TO CONFIRMATION Collected: 12/19/2024 2:37 PM Status: F Source: [facility] TYPE CODE TESTS RESULT OUT OF RANGE REFERENCE UNITS LAB 8149-7(LOINC) Amphetamines Negative Cutoff 20 ng /mL LAB 3777-0(LOINC) Methamphetamine Negative Cutoff 20 ng/mL LAB 05070-6(LOINC ) Benzodiazepines Negative Cutoff 50 ng/mL LAB 3413-2(LOINC) Buprenorphine Negative Cutoff 1 ng /mL LAB 8172-9(LOINC) Cannabinoids Negative Cutoff 20 ng /mL LAB 8191-9(LOINC) Cocaine Negative Cutoff 20 ng/mL LAB 02534-1(LOINC ) Methadone Negative Cutoff 25 ng/mL LAB 66545-3(LOINC ) oxyCODONE Negative Cutoff 20 ng/mL LAB 8236-2(LOINC) Phencyclidine Negative Cutoff 10 n g/mL LAB 8219-8(LOINC) Opiates Negative Cutoff 20 ng/mL LAB 75860-3(LOINC ) Annotation comment See Note Result Comment: INTERPRETIVE INFORMATION: Drug Screen 9 Panel, Serum or Plasma - Immunoassay Screen with Reflex to Mass Spectrometry Confirmation/Quantitation 1. Methodology: Qualitative Immunoassay Screen 2. Drugs/Drug classes reported as Positive are automatically reflexed to mass spectrometry confirmation/quantitation testing. An immunoassay unconfirmed positive screen result may be useful for medical purposes but does not meet forensic standards. 3. The absence of expected drug(s) and/or drug metabolite(s) may indicate noncompliance, inappropriate timing of specimen collection relative to drug administration, poor drug absorption, or limitations of testing. The concentration at which the screening test can detect a drug or metabolite varies within a drug class. Specimens for which drugs or drug classes are detected by the screen are automatically reflexed to a second, more specific technology (mass spectrometry). The concentration value must be greater than or equal to the cutoff to be reported as positive. Interpretive questions should be directed to the laboratory. 4. For medical purposes only; not valid for forensic use. This test was developed and its performance characteristics determined by [facility]. It has not been cleared or approved by the [place] Food and Drug Administration. This test was performed in a CLIA certified laboratory and is intended for clinical purposes. Performed By: [facility] [address] [place] [address] Material Combiner: Jhonathan Ortega MD, PhD CLIA Number: [id number] LAB 54061-5([facility] ) Barbiturates Negative Cutoff 50 ng/mL Performed By: #### [id number] ### # [facility] ([facility]) ([id number]) [address] [place] [address] NICOTINE AND METABOLITES,S Collected: 0 12/19/2024 2:37 PM Status: F Source: [facility] TYPE CODE TESTS RESULT OUT OF RANGE REFERENCE UNITS LAB 3853-9([facility]) Nicotine <5 ng/mL Result Comment: INTERPRETIVE INFORMATION: Nicotine and Metabolites, Serum or Plasma, Quantitative Methodology: Quantitative Liquid Chromatography-Tandem Mass Spectrometry Positive cutoff: 5 ng/mL For medical purposes only; not valid for forensic use. This test is designed to evaluate recent use of nicotine-containing products. Passive and active exposure cannot be discriminated definitively, although a cutoff of 10 ng/mL cotinine is frequently used for surgery qualification purposes. For smoking cessation programs or compliance testing, the absence of expected drug(s) and/or drug metabolite(s) may indicate non-compliance, inappropriate timing of specimen collection relative to drug administration, poor drug absorption, or limitations of testing. This test cannot distinguish between use of tobacco and purified nicotine products. The concentration value must be greater than or equal to the cutoff to be reported as positive. This test was developed and its performance characteristics determined by [facility]. It has not been cleared or approved by the [place] Food and Drug Administration. This test was performed in a CLIA certified laboratory and is intended for clinical purposes. Performed By: [facility] [address] [place] [address] Material Combiner: Jhonathan Ortega MD, PhD CLIA Number: [id number] LAB 16489-2([facility]) Cotinine <5 ng/mL Performed By: #### NI+ME ### # [facility] ([facility]) ([id number]) [address] [place] [address] CNPN Observed: 12/19/2024 12:00 AM Status: COMPLETED Source: [facility] Telephone (VASSMN) SANDY BRAVO ([id number]) 1965 F Date Time Provider Department 12/19/24 ESTEFANI GOVEA During your visit today, we recorded the following information about you: Estefani Govea RN 12/23/2024 10:10 AM Addendum Due to multiple appointment requests with varying information and appointment date changed from 01/03 to 07/16 (but notes on appt state esrd - having issues with fistula ), contacted pt to discuss. Pt stated she was unaware that her appointment date had been changed. She stated that she cannot wait until July to see Dr Thomas about her access. Pt stated they are having trouble at dialysis. When asked to explain, pt stated that sometimes her numbers are high and they sometimes have difficulty stopping the bleeding after her session is completed. She stated she thinks the longest period of prolonged bleeding was about 20 minutes. Pt stated that she has been able to get complete sessions of dialysis. Informed pt that we would want to speak with her dialysis center, but would likely need to get her scheduled for a fistulagram. Pt gets dialysis M/W/F at [facility], which is closed //Mon/Mon (per information available online). Informed her that since it is so late in the day and her center is closed, we would have to call her tomorrow. Pt stated that on her dialysis days, she is usually there until about 10 am. Pt stated understanding and agreeable to plan. Estefani Govea RN, BSN 5:10 PM December 19, 2024 Vita Purdy RN 12/20/2024 9:23 AM Signed Attempted to call [facility]. [facility] network outage. Will re attempt to call. JESSICA Gorman Sarah E RN 12/23/2024 10:09 AM Signed Attempted to speak with clinical team at [facility]. Following telephone prompts, was led to voicemail. Left message requesting call back. Estefani Govea RN, BSN 10:09 AM December 23, 2024 Estefani Govea RN 12/23/2024 3:06 PM Signed Called [facility] again to try to speak with clinical staff. Spoke with Lisa (nurse). She stated that pt is able to be dialyzed, but her venous pressures are high and she is having some episodes of prolonged bleeding. She added that pt's access tends to thrombose quickly and the team would like to intervene to prevent this from happening. Since a verbal order for procedure cannot be taken from non-LIP, will need order or referral sent for intervention. Lisa stated that one was faxed a couple of weeks ago, but upon review of chart I could not find this. She stated that she would fax this again today- provided her with fax number. Estefani Govea RN, BSN 3:06 PM December 23, 2024 Asuncion Dubose 12/24/2024 9:09 AM Signed Scanned referral in [facility] regarding Fistulagram. Estefani Govea RN 12/30/2024 4:06 PM Signed Concern has been addressed. See telephone encounter from today's date for further information. Estefani Govea RN, BSN 4:06 PM December 30, 2024 Allergies As of Date: 12/19/2024 Noted Allergy Reaction CODEINE 12/11/2006 8 - GI Upset LATEX 03/22/2012 4 - Hives Comments: 2006 had reaction after surgery PENICILLINS 12/11/2006 7 - Swelling CHLORHEXIDINE 11/26/2018 2 - Rash Date Reviewed: 12/05/2024 Reviewed by: Edie Samayoa LPN - Fully Assessed Reason for Visit: Dialysis [294] Consult [502] Prescriptions as of 12/30/2024 - amLODIPine (NORVASC) 10 mg tablet Take 1 tablet by mouth once daily. - insulin lispro (HUMALOG KWIKPEN INSULIN) 100 unit/mL Inject 8 Units subcutaneously three times a day before meals. Add 1 unit for each 50 mg/dl above 150 - insulin needles, DISPOSABLE, (PEN NEEDLE) 31 gauge x 5/16 Use one needle per dose four times per day. - levothyroxine (SYNTHROID) 125 mcg tablet Take 1 tablet by mouth once daily. Take on empty stomach. For Thyroid - lisinopril (ZESTRIL) 40 mg tablet Take 1 tablet by mouth once daily. - SUMAtriptan (IMITREX) 50 mg tablet Take one tablet by mouth at onset of migraine. May repeat in 2 hours if ineffective - insulin glargine (LANTUS SOLOSTAR U-100 INSULIN) 100 unit/mL (3 mL) Inject 48 Units subcutaneously daily at bedtime. - atorvastatin (LIPITOR) 40 mg tablet Take 1 tablet by mouth daily at bedtime. - cloNIDine HCl (CATAPRES) 0.2 mg tablet Take 1 tablet by mouth two times a day. - metoprolol tartrate, short acting, (LOPRESSOR) 25 mg tablet Take 1 tablet by mouth every 12 hours. - nitroglycerin sublingual (NITROQUICK) 0.4 mg SL tablet Dissolve 1 tablet under the tongue every 5 minutes as needed. - ferric citrate 210 mg iron tab Take 1 tablet by mouth once daily. - docusate sodium (COLACE) 100 mg capsule Take 1 capsule by mouth twice daily as needed for Constipation. - NEPHRO-SONDRA 0.8 mg tab Take 1 tablet by mouth once daily. - blood sugar diagnostic (BLOOD GLUCOSE TEST) test strip Test blood sugar(s) 3 times daily. Dx: Type 2 DM - Uncontrolled E11.65 Insulin: Yes - Blood-Glucose Meter (BLOOD GLUCOSE MONITORING) monitoring kit 1 Each three times daily. E11.65. On insulin. - aspirin, enteric coated (ASPIRIN, ENTERIC COATED) 81 mg EC tablet Take 1 tablet by mouth once daily. Problem List As Of Date 12/19/2024 Noted Resolved Calculus of ureter [N20.1] 06/12/2007 03/22/2012 Urinary tract infection, site not specified [N3*06/12/2007 03/22/2012 Renal colic [N23] 06/12/2007 03/22/2012 Controlled type 2 diabetes mellitus without com*09/04/1985 HTN (hypertension) [I10] 09/04/2001 Hyperlipidemia [E78.5] 09/04/1999 Depression [F32.A] 09/04/2006 06/12/2023 Hypothyroid [E03.9] 03/30/2012 ASCVD (arteriosclerotic cardiovascular disease)*05/10/2012 Proteinuria [R80.9] 06/14/2013 CKD (chronic kidney disease) stage 3, GFR 30-59*07/17/2013 05/02/2017 CKD (chronic kidney disease) stage 4, GFR 15-29*04/05/2017 03/02/2018 CKD (chronic kidney disease) stage V requiring *03/01/2018 08/29/2019 ESRD on dialysis (HCC) [N18.6, Z99.2] 05/16/2019 VT (ventricular tachycardia) [I47.20] 05/17/2019 Steal syndrome dialysis vascular access (HCC) [*05/17/2019 02/23/2023 ESRD (end stage renal disease) (HCC) [N18.6] 04/21/2021 10/27/2023 Ventral hernia with obstruction, without gangre*12/09/2021 06/29/2023 Tubular adenoma of colon [D12.6] 11/15/2022 Hyperkalemia [E87.5] 06/20/2023 09/14/2023 Secondary hyperparathyroidism of renal origin (*06/20/2023 Abnormal EKG [R94.31] 06/20/2023 09/14/2023 Hypertrophic cardiomyopathy (HCC) [I42.2] 11/08/2023 Congestive heart failure (HCC) [I50.9] History of echocardiogram [Z92.89] 11/07/2023 History of stress test [Z92.89] 06/21/2023 Encounter for screening for stenosis of carotid*03/27/2023 Arteriovenous fistula, acquired (HCC) [I77.0] 06/13/2024 Peripheral arterial disease (HCC) [I73.9] 07/10/2024 Migraine without aura, not intractable, without*05/21/2021 Encounter Status:Closed by ESTEFANI GOVEA on 12/19/24 FLOW AUTOCROSSMATCH Collected: 12/19/2024 12:00 AM S tatus: C Source: [facility] Order Comment: Test performe d at: [facility], 6th Floor [id number] [place] [address] TYPE CODE TESTS RESULT OUT OF RANGE REFERENCE UNITS LAB FLAUT FLOW AUTOCROSSMATCH LAB [facility] HLA RESULTS See Attached Performed By: #### FLAUC ### # MISTY NEUMANN S ([id number]) HLA LAB ([facility]) [id number] [place], [place] [address] HLA TRANSPLANT ANTIBODY PANEL Collected : 12/19/2024 12:00 AM Status: C Source: [facility] Order Comment: Test performe d at: [facility] 6[facility] [id number] [place] [address] TYPE CODE TESTS RESULT OUT OF RANGE REFERENCE UNITS LAB 99685-4(LOINC) HLA-A+B+C Ab LAB 35200-6(LOINC) HLA-DP+DQ+DR Ab LAB [facility] HLA RESULTS See attached. Performed By: #### HLANTI ## ## MISTY Munoz ([id number]) HLA LAB ([facility]) [id number] [place] [address] CNPN Observed: 12/17/2024 12:00 AM Status: COMPLETED Source: [facility] Telephone (PODCCP) SANDY BRAVO ([id number]) 1965 F Date Time Provider Department 12/17/24 MALDONADO DENNY PODCCP During your visit today, we recorded the following information about you: Rex Garcia 12/17/2024 10:36 AM Signed Reason for call: Mr.s hill Lawrence called and he would like to schedule an appointment with DR lozada and her scan?? Contact Name (if not the patient) Home and cell number [phone] Diagnosis Fistula gram Kind Regards Rex [facility] 12/18/2024 11:03 AM Signed Patient states that the [facility] is in need of something to be faxed to them for a fistulogram? (She wasn't too clear on what this request is for). [facility] 12/18/2024 11:05 AM Signed scheduled Estefani Govea RN 12/19/2024 5:15 PM Signed Spoke with pt on 12/19. See telephone encounter from that date. Estefani Govea RN, BSN 5:15 PM December 19, 2024 Allergies As of Date: 12/17/2024 Noted Allergy Reaction CODEINE 12/11/2006 8 - GI Upset LATEX 03/22/2012 4 - Hives Comments: 2006 had reaction after surgery PENICILLINS 12/11/2006 7 - Swelling CHLORHEXIDINE 11/26/2018 2 - Rash Date Reviewed: 12/05/2024 Reviewed by: Edie Samayoa LPN - Fully Assessed Reason for Visit: Appointment [186] Prescriptions as of 12/19/2024 - amLODIPine (NORVASC) 10 mg tablet Take 1 tablet by mouth once daily. - insulin lispro (HUMALOG KWIKPEN INSULIN) 100 unit/mL Inject 8 Units subcutaneously three times a day before meals. Add 1 unit for each 50 mg/dl above 150 - insulin needles, DISPOSABLE, (PEN NEEDLE) 31 gauge x 5/16 Use one needle per dose four times per day. - levothyroxine (SYNTHROID) 125 mcg tablet Take 1 tablet by mouth once daily. Take on empty stomach. For Thyroid - lisinopril (ZESTRIL) 40 mg tablet Take 1 tablet by mouth once daily. - SUMAtriptan (IMITREX) 50 mg tablet Take one tablet by mouth at onset of migraine. May repeat in 2 hours if ineffective - insulin glargine (LANTUS SOLOSTAR U-100 INSULIN) 100 unit/mL (3 mL) Inject 48 Units subcutaneously daily at bedtime. - atorvastatin (LIPITOR) 40 mg tablet Take 1 tablet by mouth daily at bedtime. - cloNIDine HCl (CATAPRES) 0.2 mg tablet Take 1 tablet by mouth two times a day. - metoprolol tartrate, short acting, (LOPRESSOR) 25 mg tablet Take 1 tablet by mouth every 12 hours. - nitroglycerin sublingual (NITROQUICK) 0.4 mg SL tablet Dissolve 1 tablet under the tongue every 5 minutes as needed. - ferric citrate 210 mg iron tab Take 1 tablet by mouth once daily. - docusate sodium (COLACE) 100 mg capsule Take 1 capsule by mouth twice daily as needed for Constipation. - NEPHRO-SONDRA 0.8 mg tab Take 1 tablet by mouth once daily. - blood sugar diagnostic (BLOOD GLUCOSE TEST) test strip Test blood sugar(s) 3 times daily. Dx: Type 2 DM - Uncontrolled E11.65 Insulin: Yes - Blood-Glucose Meter (BLOOD GLUCOSE MONITORING) monitoring kit 1 Each three times daily. E11.65. On insulin. - aspirin, enteric coated (ASPIRIN, ENTERIC COATED) 81 mg EC tablet Take 1 tablet by mouth once daily. Problem List As Of Date 12/17/2024 Noted Resolved Calculus of ureter [N20.1] 06/12/2007 03/22/2012 Urinary tract infection, site not specified [N3*06/12/2007 03/22/2012 Renal colic [N23] 06/12/2007 03/22/2012 Controlled type 2 diabetes mellitus without com*09/04/1985 HTN (hypertension) [I10] 09/04/2001 Hyperlipidemia [E78.5] 09/04/1999 Depression [F32.A] 09/04/2006 06/12/2023 Hypothyroid [E03.9] 03/30/2012 ASCVD (arteriosclerotic cardiovascular disease)*05/10/2012 Proteinuria [R80.9] 06/14/2013 CKD (chronic kidney disease) stage 3, GFR 30-59*07/17/2013 05/02/2017 CKD (chronic kidney disease) stage 4, GFR 15-29*04/05/2017 03/02/2018 CKD (chronic kidney disease) stage V requiring *03/01/2018 08/29/2019 ESRD on dialysis (HCC) [N18.6, Z99.2] 05/16/2019 VT (ventricular tachycardia) [I47.20] 05/17/2019 Steal syndrome dialysis vascular access (HCC) [*05/17/2019 02/23/2023 ESRD (end stage renal disease) (HCC) [N18.6] 04/21/2021 10/27/2023 Ventral hernia with obstruction, without gangre*12/09/2021 06/29/2023 Tubular adenoma of colon [D12.6] 11/15/2022 Hyperkalemia [E87.5] 06/20/2023 09/14/2023 Secondary hyperparathyroidism of renal origin (*06/20/2023 Abnormal EKG [R94.31] 06/20/2023 09/14/2023 Hypertrophic cardiomyopathy (HCC) [I42.2] 11/08/2023 Congestive heart failure (HCC) [I50.9] History of echocardiogram [Z92.89] 11/07/2023 History of stress test [Z92.89] 06/21/2023 Encounter for screening for stenosis of carotid*03/27/2023 Arteriovenous fistula, acquired (HCC) [I77.0] 06/13/2024 Peripheral arterial disease (HCC) [I73.9] 07/10/2024 Migraine without aura, not intractable, without*05/21/2021 Encounter Status:Closed by REX GARCIA on 12/17/24 PROGRESS Observed: 12/05/2024 9:53 AM Status: COMPLETED Source: [facility] ID: [id number] Author: MALDONADO DENNY MD Service: ? Author Type: Physician Type: Progress Notes Filed: 12/05/2024 10:46 Note Text: This note was created using NakedRoomriter. Subjective Patient presents with: 5 month follow-up Sandy Bravo is a 59 year old female. She was doing reasonably well. Her diabetes mellitus was labile. Hypertension was controlled. ESRD was managed with dialysis. Migraines were infrequent. She is scheduled with [facility] for uveitis. Review of Systems Constitutional: Negative for fatigue and fever. HENT: Negative for congestion. Eyes: Positive for visual disturbance. Respiratory: Negative for cough and shortness of breath. Cardiovascular: Positive for leg swelling. Negative for chest pain and palpitations. Gastrointestinal: Negative for abdominal pain, constipation, diarrhea, nausea and vomiting. Musculoskeletal: Negative for arthralgias. Neurological: Negative for dizziness and numbness. ACTIVE PROBLEM LIST Controlled Type 2 Diabetes Mellitus Without Complication, With Long-Term Current Use of Insulin (Hcc) Htn (Hypertension) Hyperlipidemia Hypothyroid Ascvd (Arteriosclerotic Cardiovascular Disease) Proteinuria Esrd On Dialysis (Hcc) VT (ventricular tachycardia) Tubular Adenoma of Colon Secondary Hyperparathyroidism of Renal Origin (Hcc) Hypertrophic Cardiomyopathy (Hcc) Congestive Heart Failure (Hcc) History of Echocardiogram History of Stress Test Encounter for Screening for Stenosis of Carotid Artery Arteriovenous Fistula, Acquired Peripheral Arterial Disease Migraine Without Aura, Not Intractable, Without Status Migrainosus Social History Tobacco Use Smoking status: Former Current packs/day: 0.00 Average packs/day: 1.5 packs/day for 3.0 years (4.5 ttl pk-yrs) Types: Cigarettes Start date: 09/04/2002 Quit date: 09/04/2005 Years since quittin.2 Smokeless tobacco: Never Tobacco comments: quit march 10 Vaping Use Vaping status: Never Used Substance Use Topics Alcohol use: No Drug use: No Current Outpatient Medications Medication Sig atorvastatin (LIPITOR) 40 mg tablet Take 1 tablet by mouth daily at bedtime. cloNIDine HCl (CATAPRES) 0.2 mg tablet Take 1 tablet by mouth two times a day. metoprolol tartrate, short acting, (LOPRESSOR) 25 mg tablet Take 1 tablet by mouth every 12 hours. amLODIPine (NORVASC) 10 mg tablet Take 1 tablet by mouth once daily. nitroglycerin sublingual (NITROQUICK) 0.4 mg SL tablet Dissolve 1 tablet under the tongue every 5 minutes as needed. insulin needles, DISPOSABLE, (PEN NEEDLE) 31 gauge x 5/16 Use one needle per dose four times per day. insulin lispro (HUMALOG KWIKPEN INSULIN) 100 unit/mL Inject 8 Units subcutaneously three times a day before meals. Add 1 unit for each 50 mg/dl above 150 levothyroxine (SYNTHROID) 125 mcg tablet Take 1 tablet by mouth once daily. Take on empty stomach. For Thyroid lisinopril (ZESTRIL) 40 mg tablet Take 1 tablet by mouth once daily. ciprofloxacin HCl (CILOXAN) 0.3 % ophthalmic solution Use 1 Drop in the left eye four times daily. (Patient taking differently: Use 1 Drop in the left eye four times daily.) SUMAtriptan (IMITREX) 50 mg tablet Take one tablet by mouth at onset of migraine. May repeat in 2 hours if ineffective insulin detemir U-100 (LEVEMIR FLEXTOUCH U-100 INSULIN) 100 unit/mL (3 mL) injection pen Inject 48 Units subcutaneously daily at bedtime. ferric citrate 210 mg iron tab Take 1 tablet by mouth once daily. docusate sodium (COLACE) 100 mg capsule Take 1 capsule by mouth twice daily as needed for Constipation. NEPHRO-SONDRA 0.8 mg tab Take 1 tablet by mouth once daily. blood sugar diagnostic (BLOOD GLUCOSE TEST) test strip Test blood sugar(s) 3 times daily. Dx: Type 2 DM - Uncontrolled E11.65 Insulin: Yes Blood-Glucose Meter (BLOOD GLUCOSE MONITORING) monitoring kit 1 Each three times daily. E11.65. On insulin. aspirin, enteric coated (ASPIRIN, ENTERIC COATED) 81 mg EC tablet Take 1 tablet by mouth once daily. No current facility-administered medications for this visit. Objective BP 124/64 (BP Site: Left Arm, BP Position: Sitting, BP Cuff Size: Large Adult) Pulse 68 Temp 36.7 ?C (98.1 ?F) (Temporal) Wt 61.1 kg (134 lb 11.2 oz) BMI 24.17 kg/m? Physical Exam Constitutional: General: She is not in acute distress. Appearance: She is not ill-appearing or diaphoretic. HENT: Head: Normocephalic. Eyes: General: No scleral icterus. Conjunctiva/sclera: Conjunctivae normal. Cardiovascular: Rate and Rhythm: Normal rate and regular rhythm. Heart sounds: S1 normal and S2 normal. Murmur heard. Systolic murmur is present with a grade of 1/6. Pulmonary: Effort: No respiratory distress. Breath sounds: No wheezing or rales. Abdominal: General: There is no distension. Palpations: Abdomen is soft. Tenderness: There is no abdominal tenderness. Musculoskeletal: Right lower le+ Pitting Edema present. Left lower le+ Pitting Edema present. Neurological: Mental Status: She is alert. Gait: Gait normal. Feet:Shoes and socks removed, No deformities, ulcers, calluses, abnormal pulses Decreased bilaterally, sensitive to 10 gm monofilament, and nails notable for Deformed, Hypertrophic, or Yellowish. Assessment and Plan 1. Controlled type 2 diabetes mellitus without complication, with long-term current use of insulin ([facility]) - ICD9: 250.00, V58.67, ICD10: E11.9, Z79.4 (primary diagnosis) - Control undetermined, due for labs - Continue current medications - LEVEMIR FLEXTOUCH U-100 INSULIN 100 UNIT/ML (3 ML) SUBCUTANEOUS PEN - INSULIN LISPRO (U-100) 100 UNIT/ML SUBCUTANEOUS PEN - PEN NEEDLE, DIABETIC 31 GAUGE X 5/16 - HEMOGLOBIN A1C (POC) - LIPID PANEL, FASTING - HEMOGLOBIN A1C 2. Primary hypertension - ICD9: 401.9, ICD10: I10 - Controlled - Continue current medications - AMLODIPINE 10 MG TABLET - LISINOPRIL 40 MG TABLET 3. Hypothyroidism, unspecified type - ICD9: 244.9, ICD10: E03.9 - Instructed patient on importance of taking on an empty stomach either first thing in the morning or at bedtime. - continue current dose of Synthroid - LEVOTHYROXINE 125 MCG TABLET - THYROID STIMULATING HORMONE 4. ESRD (end stage renal disease) (HCC) - ICD9: 585.6, ICD10: N18.6 - COMPLETE BLOOD COUNT - COMPREHENSIVE METABOLIC PANEL 5. Congestive heart failure, unspecified HF chronicity, unspecified heart failure type (HCC) - ICD9: 428.0, ICD10: I50.9 - Compensated - Continue current medications 6. VT (ventricular tachycardia) (HCC) - ICD9: 427.1, ICD10: I47.20 - Controlled. 7. Need for vaccination - ICD9: V05.9, ICD10: Z23 - HEP A-HEP B VACCINE ([facility]) - HEP A-HEP B VACCINE ([facility]) - HEP A-HEP B VACCINE ([facility]) 8. Migraine without aura, not intractable, without status migrainosus - ICD9: 346.10, ICD10: G43.009 Controlled. - SUMATRIPTAN 50 MG TABLET 9. Cervical cancer screening - ICD9: V76.2, ICD10: Z12.4 - CONSULT TO GYNECOLOGY Maldonado Denny MD CNOV Observed: 12/05/2024 9:20 AM Status: COMPLETED Source: [facility] Office Visit (INTMWS) LAWRENCESANDY MINOR ([id number]) 1965 F Date Time Provider Department 12/05/24 9:20 AM MALDONADO DENNY INTMWS During your visit today, we recorded the following information about you: Temperature Pulse Blood pressure Weight 98.1 degrees 68/minute 124/64 61.1 kg Maldonado Denny MD 12/05/2024 10:46 AM Signed This note was created using NoteWriter. Subjective Patient presents with: 5 month follow-up Sandy Bravo is a 59 year old female. She was doing reasonably well. Her diabetes mellitus was labile. Hypertension was controlled. ESRD was managed with dialysis. Migraines were infrequent. She is scheduled with [facility] for uveitis. Review of Systems Constitutional: Negative for fatigue and fever. HENT: Negative for congestion. Eyes: Positive for visual disturbance. Respiratory: Negative for cough and shortness of breath. Cardiovascular: Positive for leg swelling. Negative for chest pain and palpitations. Gastrointestinal: Negative for abdominal pain, constipation, diarrhea, nausea and vomiting. Musculoskeletal: Negative for arthralgias. Neurological: Negative for dizziness and numbness. ACTIVE PROBLEM LIST Controlled Type 2 Diabetes Mellitus Without Complication, With Long-Term Current Use of Insulin (Hcc) Htn (Hypertension) Hyperlipidemia Hypothyroid Ascvd (Arteriosclerotic Cardiovascular Disease) Proteinuria Esrd On Dialysis (Hcc) VT (ventricular tachycardia) Tubular Adenoma of Colon Secondary Hyperparathyroidism of Renal Origin (Hcc) Hypertrophic Cardiomyopathy (Hcc) Congestive Heart Failure (Hcc) History of Echocardiogram History of Stress Test Encounter for Screening for Stenosis of Carotid Artery Arteriovenous Fistula, Acquired Peripheral Arterial Disease Migraine Without Aura, Not Intractable, Without Status Migrainosus Social History Tobacco Use Smoking status: Former Current packs/day: 0.00 Average packs/day: 1.5 packs/day for 3.0 years (4.5 ttl pk-yrs) Types: Cigarettes Start date: 09/04/2002 Quit date: 09/04/2005 Years since quittin.2 Smokeless tobacco: Never Tobacco comments: quit march 10 Vaping Use Vaping status: Never Used Substance Use Topics Alcohol use: No Drug use: No Current Outpatient Medications Medication Sig atorvastatin (LIPITOR) 40 mg tablet Take 1 tablet by mouth daily at bedtime. cloNIDine HCl (CATAPRES) 0.2 mg tablet Take 1 tablet by mouth two times a day. metoprolol tartrate, short acting, (LOPRESSOR) 25 mg tablet Take 1 tablet by mouth every 12 hours. amLODIPine (NORVASC) 10 mg tablet Take 1 tablet by mouth once daily. nitroglycerin sublingual (NITROQUICK) 0.4 mg SL tablet Dissolve 1 tablet under the tongue every 5 minutes as needed. insulin needles, DISPOSABLE, (PEN NEEDLE) 31 gauge x 5/16 Use one needle per dose four times per day. insulin lispro (HUMALOG KWIKPEN INSULIN) 100 unit/mL Inject 8 Units subcutaneously three times a day before meals. Add 1 unit for each 50 mg/dl above 150 levothyroxine (SYNTHROID) 125 mcg tablet Take 1 tablet by mouth once daily. Take on empty stomach. For Thyroid lisinopril (ZESTRIL) 40 mg tablet Take 1 tablet by mouth once daily. ciprofloxacin HCl (CILOXAN) 0.3 % ophthalmic solution Use 1 Drop in the left eye four times daily. (Patient taking differently: Use 1 Drop in the left eye four times daily.) SUMAtriptan (IMITREX) 50 mg tablet Take one tablet by mouth at onset of migraine. May repeat in 2 hours if ineffective insulin detemir U-100 (LEVEMIR FLEXTOUCH U-100 INSULIN) 100 unit/mL (3 mL) injection pen Inject 48 Units subcutaneously daily at bedtime. ferric citrate 210 mg iron tab Take 1 tablet by mouth once daily. docusate sodium (COLACE) 100 mg capsule Take 1 capsule by mouth twice daily as needed for Constipation. NEPHRO-SONDRA 0.8 mg tab Take 1 tablet by mouth once daily. blood sugar diagnostic (BLOOD GLUCOSE TEST) test strip Test blood sugar(s) 3 times daily. Dx: Type 2 DM - Uncontrolled E11.65 Insulin: Yes Blood-Glucose Meter (BLOOD GLUCOSE MONITORING) monitoring kit 1 Each three times daily. E11.65. On insulin. aspirin, enteric coated (ASPIRIN, ENTERIC COATED) 81 mg EC tablet Take 1 tablet by mouth once daily. No current facility-administered medications for this visit. Objective BP 124/64 (BP Site: Left Arm, BP Position: Sitting, BP Cuff Size: Large Adult) Pulse 68 Temp 36.7 ?C (98.1 ?F) (Temporal) Wt 61.1 kg (134 lb 11.2 oz) BMI 24.17 kg/m? Physical Exam Constitutional: General: She is not in acute distress. Appearance: She is not ill-appearing or diaphoretic. HENT: Head: Normocephalic. Eyes: General: No scleral icterus. Conjunctiva/sclera: Conjunctivae normal. Cardiovascular: Rate and Rhythm: Normal rate and regular rhythm. Heart sounds: S1 normal and S2 normal. Murmur heard. Systolic murmur is present with a grade of 1/6. Pulmonary: Effort: No respiratory distress. Breath sounds: No wheezing or rales. Abdominal: General: There is no distension. Palpations: Abdomen is soft. Tenderness: There is no abdominal tenderness. Musculoskeletal: Right lower le+ Pitting Edema present. Left lower le+ Pitting Edema present. Neurological: Mental Status: She is alert. Gait: Gait normal. Feet:Shoes and socks removed, No deformities, ulcers, calluses, abnormal pulses Decreased bilaterally, sensitive to 10 gm monofilament, and nails notable for Deformed, Hypertrophic, or Yellowish. Assessment and Plan 1. Controlled type 2 diabetes mellitus without complication, with long-term current use of insulin ([facility]) - ICD9: 250.00, V58.67, ICD10: E11.9, Z79.4 (primary diagnosis) - Control undetermined, due for labs - Continue current medications - LEVEMIR FLEXTOUCH U-100 INSULIN 100 UNIT/ML (3 ML) SUBCUTANEOUS PEN - INSULIN LISPRO (U-100) 100 UNIT/ML SUBCUTANEOUS PEN - PEN NEEDLE, DIABETIC 31 GAUGE X 5/16 - HEMOGLOBIN A1C (POC) - LIPID PANEL, FASTING - HEMOGLOBIN A1C 2. Primary hypertension - ICD9: 401.9, ICD10: I10 - Controlled - Continue current medications - AMLODIPINE 10 MG TABLET - LISINOPRIL 40 MG TABLET 3. Hypothyroidism, unspecified type - ICD9: 244.9, ICD10: E03.9 - Instructed patient on importance of taking on an empty stomach either first thing in the morning or at bedtime. - continue current dose of Synthroid - LEVOTHYROXINE 125 MCG TABLET - THYROID STIMULATING HORMONE 4. ESRD (end stage renal disease) ([facility]) - ICD9: 585.6, ICD10: N18.6 - COMPLETE BLOOD COUNT - COMPREHENSIVE METABOLIC PANEL 5. Congestive heart failure, unspecified HF chronicity, unspecified heart failure type ([facility]) - ICD9: 428.0, ICD10: I50.9 - Compensated - Continue current medications 6. VT (ventricular tachycardia) ([facility]) - ICD9: 427.1, ICD10: I47.20 - Controlled. 7. Need for vaccination - ICD9: V05.9, ICD10: Z23 - HEP A-HEP B VACCINE ([facility]) - HEP A-HEP B VACCINE ([facility]) - HEP A-HEP B VACCINE ([facility]) 8. Migraine without aura, not intractable, without status migrainosus - ICD9: 346.10, ICD10: G43.009 Controlled. - SUMATRIPTAN 50 MG TABLET 9. Cervical cancer screening - ICD9: V76.2, ICD10: Z12.4 - CONSULT TO GYNECOLOGY MD Eduin Jacobo Victor H, MD 12/05/2024 10:17 AM Signed HEPATITIS VACCINE SERIES NOW, AT 1 MONTH, AND AT 6 MONTHS. FASTING BLOOD WORK END OF . Allergies As of Date: 12/05/2024 Noted Allergy Reaction CODEINE 12/11/2006 8 - GI Upset LATEX 03/22/2012 4 - Hives Comments: 2006 had reaction after surgery PENICILLINS 12/11/2006 7 - Swelling CHLORHEXIDINE 11/26/2018 2 - Rash Date Reviewed: 12/05/2024 Reviewed by: Edie Samayoa LPN - Fully Assessed Reason for Visit: 5 month follow-up [Other] Primary Visit Diagnosis:Controlled type 2 diabetes mellitus without complication, with long-term current use of insulin ([facility]) [E11.9, Z79.4] Other Visit Diagnoses:Primary hypertension [I10] Hypothyroidism, unspecified type [E03.9] ESRD (end stage renal disease) ([facility]) [N18.6] Congestive heart failure, unspecified HF chronicity, unspecified heart failure type ([facility]) [I50.9] VT (ventricular tachycardia) ([facility]) [I47.20] Need for vaccination [Z23] Migraine without aura, not intractable, without status migrainosus [G43.009] Cervical cancer screening [Z12.4] Order(s):amLODIPine (NORVASC) 10 mg tabletTake 1 tablet by mouth once daily.Disp: 90 tabletRfl: 1 insulin detemir U-100 (LEVEMIR FLEXTOUCH U-100 INSULIN) 100 unit/mL (3 mL) injection penInject 48 Units subcutaneously daily at bedtime.Disp: 5 eachRfl: 5 insulin lispro (HUMALOG KWIKPEN INSULIN) 100 unit/mLInject 8 Units subcutaneously three times a day before meals. Add 1 unit for each 50 mg/dl above 150Disp: 15 mLRfl: 5 insulin needles, DISPOSABLE, (PEN NEEDLE) 31 gauge x 5/16Use one needle per dose four times per day.Disp: 400 eachRfl: 3 levothyroxine (SYNTHROID) 125 mcg tabletTake 1 tablet by mouth once daily. Take on empty stomach. For ThyroidDisp: 90 tabletRfl: 1 lisinopril (ZESTRIL) 40 mg tabletTake 1 tablet by mouth once daily.Disp: 90 tabletRfl: 1 SUMAtriptan (IMITREX) 50 mg tabletTake one tablet by mouth at onset of migraine. May repeat in 2 hours if ineffectiveDisp: 12 tabletRfl: 2 HEMOGLOBIN A1C (POC) [5500162] Order #: [id number] HEP A-HEP B VACCINE ([facility]) [07522FEH] Order #: [id number] HEP A-HEP B VACCINE ([facility]) [27041EYO] Order #: [id number] FUTURE HEP A-HEP B VACCINE ([facility]) [70467UAO] Order #: [id number] FUTURE CONSULT TO GYNECOLOGY [9013] Order #: [id number]: 1 FUTURE COMPLETE BLOOD COUNT [SQCBC] Order #: [id number] FUTURE COMPREHENSIVE METABOLIC PANEL [SQCMP] Order #: [id number] FUTURE LIPID PANEL, FASTING [SQLIPB] Order #: [id number] FUTURE HEMOGLOBIN A1C [TKNPT3E] Order #: [id number] FUTURE THYROID STIMULATING HORMONE [SQTSH] Order #: [id number] FUTURE Prescriptions as of 12/05/2024 - amLODIPine (NORVASC) 10 mg tablet Take 1 tablet by mouth once daily. - insulin detemir U-100 (LEVEMIR FLEXTOUCH U-100 INSULIN) 100 unit/mL (3 mL) injection pen Inject 48 Units subcutaneously daily at bedtime. - insulin lispro (HUMALOG KWIKPEN INSULIN) 100 unit/mL Inject 8 Units subcutaneously three times a day before meals. Add 1 unit for each 50 mg/dl above 150 - insulin needles, DISPOSABLE, (PEN NEEDLE) 31 gauge x 5/16 Use one needle per dose four times per day. - levothyroxine (SYNTHROID) 125 mcg tablet Take 1 tablet by mouth once daily. Take on empty stomach. For Thyroid - lisinopril (ZESTRIL) 40 mg tablet Take 1 tablet by mouth once daily. - SUMAtriptan (IMITREX) 50 mg tablet Take one tablet by mouth at onset of migraine. May repeat in 2 hours if ineffective - atorvastatin (LIPITOR) 40 mg tablet Take 1 tablet by mouth daily at bedtime. - cloNIDine HCl (CATAPRES) 0.2 mg tablet Take 1 tablet by mouth two times a day. - metoprolol tartrate, short acting, (LOPRESSOR) 25 mg tablet Take 1 tablet by mouth every 12 hours. - nitroglycerin sublingual (NITROQUICK) 0.4 mg SL tablet Dissolve 1 tablet under the tongue every 5 minutes as needed. - ferric citrate 210 mg iron tab Take 1 tablet by mouth once daily. - docusate sodium (COLACE) 100 mg capsule Take 1 capsule by mouth twice daily as needed for Constipation. - NEPHRO-SONDRA 0.8 mg tab Take 1 tablet by mouth once daily. - blood sugar diagnostic (BLOOD GLUCOSE TEST) test strip Test blood sugar(s) 3 times daily. Dx: Type 2 DM - Uncontrolled E11.65 Insulin: Yes - Blood-Glucose Meter (BLOOD GLUCOSE MONITORING) monitoring kit 1 Each three times daily. E11.65. On insulin. - aspirin, enteric coated (ASPIRIN, ENTERIC COATED) 81 mg EC tablet Take 1 tablet by mouth once daily. Problem List As Of Date 12/05/2024 Noted Resolved Calculus of ureter [N20.1] 06/12/2007 03/22/2012 Urinary tract infection, site not specified [N3*06/12/2007 03/22/2012 Renal colic [N23] 06/12/2007 03/22/2012 Controlled type 2 diabetes mellitus without com*09/04/1985 HTN (hypertension) [I10] 09/04/2001 Hyperlipidemia [E78.5] 09/04/1999 Depression [F32.A] 09/04/2006 06/12/2023 Hypothyroid [E03.9] 03/30/2012 ASCVD (arteriosclerotic cardiovascular disease)*05/10/2012 Proteinuria [R80.9] 06/14/2013 CKD (chronic kidney disease) stage 3, GFR 30-59*07/17/2013 05/02/2017 CKD (chronic kidney disease) stage 4, GFR 15-29*04/05/2017 03/02/2018 CKD (chronic kidney disease) stage V requiring *03/01/2018 08/29/2019 ESRD on dialysis (HCC) [N18.6, Z99.2] 05/16/2019 VT (ventricular tachycardia) [I47.20] 05/17/2019 Steal syndrome dialysis vascular access (HCC) [*05/17/2019 02/23/2023 ESRD (end stage renal disease) (HCC) [N18.6] 04/21/2021 10/27/2023 Ventral hernia with obstruction, without gangre*12/09/2021 06/29/2023 Tubular adenoma of colon [D12.6] 11/15/2022 Hyperkalemia [E87.5] 06/20/2023 09/14/2023 Secondary hyperparathyroidism of renal origin (*06/20/2023 Abnormal EKG [R94.31] 06/20/2023 09/14/2023 Hypertrophic cardiomyopathy (HCC) [I42.2] 11/08/2023 Congestive heart failure (HCC) [I50.9] History of echocardiogram [Z92.89] 11/07/2023 History of stress test [Z92.89] 06/21/2023 Encounter for screening for stenosis of carotid*03/27/2023 Arteriovenous fistula, acquired (HCC) [I77.0] 06/13/2024 Peripheral arterial disease (HCC) [I73.9] 07/10/2024 Migraine without aura, not intractable, without*05/21/2021 Other instructions from your clinician: HEPATITIS VACCINE SERIES NOW, AT 1 MONTH, AND AT 6 MONTHS. FASTING BLOOD WORK END OF . Prescriptions ordered this encounter Disp Refills Start End AMLODIPINE 10 MG TABLET 90 t* 1 12/05/2024 Route: ORAL Sig: Take 1 tablet by mouth once daily. LEVEMIR FLEXTOUCH U-100 INSULIN 100 * 5 ea* 5 12/05/2024 Route: SUBCUTANEOUS Sig: Inject 48 Units subcutaneously daily at bedtime. INSULIN LISPRO (U-100) 100 UNIT/ML S* 15 mL 5 12/05/2024 Sig: Inject 8 Units subcutaneously three times a day before meals. Add 1 unit for each 50 mg/dl above 150 PEN NEEDLE, DIABETIC 31 GAUGE X 01/17 400 * 3 12/05/2024 Sig: Use one needle per dose four times per day. LEVOTHYROXINE 125 MCG TABLET 90 t* 1 12/05/2024 Route: ORAL Sig: Take 1 tablet by mouth once daily. Take on empty stomach. For Thyroid LISINOPRIL 40 MG TABLET 90 t* 1 12/05/2024 Route: ORAL Sig: Take 1 tablet by mouth once daily. SUMATRIPTAN 50 MG TABLET 12 t* 2 12/05/2024 Sig: Take one tablet by mouth at onset of migraine. May repeat in 2 hours if ineffective Medications Discontinued During This Encounter Prescriptions - insulin detemir U-100 (LEVEMIR FLEXTOUCH U-100 INSULIN) 100 unit/mL (3 mL) injection pen (Discontinued) Inject 48 Units subcutaneously daily at bedtime. - SUMAtriptan (IMITREX) 50 mg tablet (Discontinued) Take one tablet by mouth at onset of migraine. May repeat in 2 hours if ineffective - levothyroxine (SYNTHROID) 125 mcg tablet (Discontinued) Take 1 tablet by mouth once daily. Take on empty stomach. For Thyroid - lisinopril (ZESTRIL) 40 mg tablet (Discontinued) Take 1 tablet by mouth once daily. - insulin needles, DISPOSABLE, (PEN NEEDLE) 31 gauge x 5/16 (Discontinued) Use one needle per dose four times per day. - insulin lispro (HUMALOG KWIKPEN INSULIN) 100 unit/mL (Discontinued) Inject 8 Units subcutaneously three times a day before meals. Add 1 unit for each 50 mg/dl above 150 - amLODIPine (NORVASC) 10 mg tablet (Discontinued) Take 1 tablet by mouth once daily. - ciprofloxacin HCl (CILOXAN) 0.3 % ophthalmic solution (Discontinued) Use 1 Drop in the left eye four times daily. Level of Service: OFFICE/OUTPATIENT ESTABLISHED MOD MDM 30 MIN [81851] Additional E/M codes: VISIT CPLX INHERENT EANDM ASSOC WITH MED * Disposition: Return in about 6 months (around 06/13/2025). Follow-up and Disposition History for Encounter Date Provider Department Center 12/05/2024 [id number]-MFNYEUYAIMALDONADO DENNY [facility] Encounter Status:Closed by MALDONADO DENNY on 12/05/24 AR[place] Observed: 12/05/2024 12:00 AM Status: COMPLETED Source: [facility] Telephone ([place]) LAWRENCESANDY MINOR ([id number]) 1965 F Date Time Provider Department 12/05/24 MALDONADO DENNY INTMWS During your visit today, we recorded the following information about you: Chris Pierce RN 12/05/2024 11:05 AM Signed [facility] phoned to let pcp know- they quit making levemir. [facility] pcp can order Lantus, Toujeo, or Tresiba in it's place. Maldonado Denny MD 12/05/2024 12:08 PM Signed The following approved medication requests have been transmitted electronically. Requested Prescriptions Signed Prescriptions Disp Refills insulin glargine (LANTUS SOLOSTAR U-100 INSULIN) 100 unit/mL (3 mL) 15 mL 5 Sig: Inject 48 Units subcutaneously daily at bedtime. Authorizing Provider: MALDONADO DENNY MD Allergies As of Date: 12/05/2024 Noted Allergy Reaction CODEINE 12/11/2006 8 - GI Upset LATEX 03/22/2012 4 - Hives Comments: 2006 had reaction after surgery PENICILLINS 12/11/2006 7 - Swelling CHLORHEXIDINE 11/26/2018 2 - Rash Date Reviewed: 12/05/2024 Reviewed by: Edie Samayoa LPN - Fully Assessed Reason for Visit: Medication Problem [65] Primary Visit Diagnosis:Controlled type 2 diabetes mellitus without complication, with long-term current use of insulin ([facility]) [E11.9, Z79.4] Order(s):insulin glargine (LANTUS SOLOSTAR U-100 INSULIN) 100 unit/mL (3 mL)Inject 48 Units subcutaneously daily at bedtime.Disp: 15 mLRfl: 5 Prescriptions as of 12/05/2024 - amLODIPine (NORVASC) 10 mg tablet Take 1 tablet by mouth once daily. - insulin lispro (HUMALOG KWIKPEN INSULIN) 100 unit/mL Inject 8 Units subcutaneously three times a day before meals. Add 1 unit for each 50 mg/dl above 150 - insulin needles, DISPOSABLE, (PEN NEEDLE) 31 gauge x 5/16 Use one needle per dose four times per day. - levothyroxine (SYNTHROID) 125 mcg tablet Take 1 tablet by mouth once daily. Take on empty stomach. For Thyroid - lisinopril (ZESTRIL) 40 mg tablet Take 1 tablet by mouth once daily. - SUMAtriptan (IMITREX) 50 mg tablet Take one tablet by mouth at onset of migraine. May repeat in 2 hours if ineffective - insulin glargine (LANTUS SOLOSTAR U-100 INSULIN) 100 unit/mL (3 mL) Inject 48 Units subcutaneously daily at bedtime. - atorvastatin (LIPITOR) 40 mg tablet Take 1 tablet by mouth daily at bedtime. - cloNIDine HCl (CATAPRES) 0.2 mg tablet Take 1 tablet by mouth two times a day. - metoprolol tartrate, short acting, (LOPRESSOR) 25 mg tablet Take 1 tablet by mouth every 12 hours. - nitroglycerin sublingual (NITROQUICK) 0.4 mg SL tablet Dissolve 1 tablet under the tongue every 5 minutes as needed. - ferric citrate 210 mg iron tab Take 1 tablet by mouth once daily. - docusate sodium (COLACE) 100 mg capsule Take 1 capsule by mouth twice daily as needed for Constipation. - NEPHRO-SONDRA 0.8 mg tab Take 1 tablet by mouth once daily. - blood sugar diagnostic (BLOOD GLUCOSE TEST) test strip Test blood sugar(s) 3 times daily. Dx: Type 2 DM - Uncontrolled E11.65 Insulin: Yes - Blood-Glucose Meter (BLOOD GLUCOSE MONITORING) monitoring kit 1 Each three times daily. E11.65. On insulin. - aspirin, enteric coated (ASPIRIN, ENTERIC COATED) 81 mg EC tablet Take 1 tablet by mouth once daily. Problem List As Of Date 12/05/2024 Noted Resolved Calculus of ureter [N20.1] 06/12/2007 03/22/2012 Urinary tract infection, site not specified [N3*06/12/2007 03/22/2012 Renal colic [N23] 06/12/2007 03/22/2012 Controlled type 2 diabetes mellitus without com*09/04/1985 HTN (hypertension) [I10] 09/04/2001 Hyperlipidemia [E78.5] 09/04/1999 Depression [F32.A] 09/04/2006 06/12/2023 Hypothyroid [E03.9] 03/30/2012 ASCVD (arteriosclerotic cardiovascular disease)*05/10/2012 Proteinuria [R80.9] 06/14/2013 CKD (chronic kidney disease) stage 3, GFR 30-59*07/17/2013 05/02/2017 CKD (chronic kidney disease) stage 4, GFR 15-29*04/05/2017 03/02/2018 CKD (chronic kidney disease) stage V requiring *03/01/2018 08/29/2019 ESRD on dialysis (HCC) [N18.6, Z99.2] 05/16/2019 VT (ventricular tachycardia) [I47.20] 05/17/2019 Steal syndrome dialysis vascular access (HCC) [*05/17/2019 02/23/2023 ESRD (end stage renal disease) (HCC) [N18.6] 04/21/2021 10/27/2023 Ventral hernia with obstruction, without gangre*12/09/2021 06/29/2023 Tubular adenoma of colon [D12.6] 11/15/2022 Hyperkalemia [E87.5] 06/20/2023 09/14/2023 Secondary hyperparathyroidism of renal origin (*06/20/2023 Abnormal EKG [R94.31] 06/20/2023 09/14/2023 Hypertrophic cardiomyopathy ([facility]) [I42.2] 11/08/2023 Congestive heart failure ([facility]) [I50.9] History of echocardiogram [Z92.89] 11/07/2023 History of stress test [Z92.89] 06/21/2023 Encounter for screening for stenosis of carotid*03/27/2023 Arteriovenous fistula, acquired ([facility]) [I77.0] 06/13/2024 Peripheral arterial disease ([facility]) [I73.9] 07/10/2024 Migraine without aura, not intractable, without*05/21/2021 Prescriptions ordered this encounter Disp Refills Start End LANTUS SOLOSTAR U-100 INSULIN 100 UN* 15 mL 5 12/05/2024 Cmt: Generic or brand: dispense product preferred by patient/insurance unless TODD flag is selected. Route: SUBCUTANEOUS Sig: Inject 48 Units subcutaneously daily at bedtime. Medications Discontinued During This Encounter Prescriptions - insulin detemir U-100 (LEVEMIR FLEXTOUCH U-100 INSULIN) 100 unit/mL (3 mL) injection pen (Discontinued) Inject 48 Units subcutaneously daily at bedtime. Encounter Status:Closed by MALDONADO DENNY on 12/05/24 [facility] [employer] Observed: 1:50 PM Status: F Source: [facility] * * *Final Report* * * DATE OF EXAM: Dec 03 2024 1:50PM [id number] - [facility] [employer] BREAST [employer] LT / PROCEDURE REASON: Abnormal screening mammogram * * * * Physician Interpretation * * * * [place] [address] #[id number] - [facility] [place] #[id number] - [facility] [employer] HISTORY: 59 year-old patient seen for diagnostic evaluation of the finding(s) described on prior mammogram in both breasts. Patient states no personal history of breast cancer. COMPARISON STUDIES: The present examination has been compared to prior imaging studies dated 01/01/2016 (mammogram), 11/06/2017 (mammogram), 07/05/2022 (mammogram) and 07/11/2024 (mammogram). MAMMOGRAM TECHNIQUE: The study was acquired using full field digital technology and interpreted from soft copy. Digital Breast Tomosynthesis (DBT) images were obtained and used to assist in the interpretation of this examination. MAMMOGRAM FINDINGS: There are scattered areas of fibroglandular density. Throughout both breasts, there is septal thickening and there is skin thickening. Patient has history of renal failure and the findings may be related to diffuse edema. Moreover, the patient has a history of bilateral breast reduction further contributing to areas of septal irregularity. There are no discrete masses. Numerous vascular calcifications without definite suspicious clustered calcifications. ULTRASOUND TECHNIQUE: Targeted ultrasound of the left breast indicated area was performed. Molina scale images were saved. ULTRASOUND FINDINGS: No abnormality is seen at the site of clinical concern. There are no suspicious findings in the imaged area. IMPRESSION: There is no mammographic or sonographic evidence of malignancy. Assessment is somewhat limited because of combination of diffuse edema and postoperative changes. If there are any palpable abnormalities, follow-up is suggested. Return to annual screening mammogram is recommended. Annual mammogram will be due in 8 months. BI-RADS Category 2: Benign RISK: Based on the Tyrer-Cuzick (TC) risk assessment model, this patient has a 2.9% lifetime risk of developing breast cancer, meaning they are at average risk for developing breast cancer. However, this is only an estimate based on available history provided on the patient's questionnaire. We encourage all patients to talk with their providers about these results, further recommendations for managing breast health, and appropriate supplemental screening options if the patient has dense breast tissue. Interpreting Radiologist: Anna Galaviz M.D. Electronically signed on: 12/03/2024 Community Relations Representative: ANSLEY Transcribe Date/Time: Dec 03 2024 1:43P Dictated by : ANNA GALAVIZ MD This examination was interpreted and the report reviewed and electronically signed by: ANNA GALAVIZ MD on Dec 03 2024 2:01PM EST [id number] Observed: 12/03/2024 1:30 PM Status: COMPLETED [facility] [id number] Author: SANGEETA FAROOQ RDMS Service: ? Author Type: Plastics Scientist Type: Progress Notes Filed: 12/03/2024 14:01 Note Text: Radiology Service Progress Note PATIENT NAME: Sandy Bravo DATE OF SERVICE: December 03, 2024 TIME: 2:01 PM PATIENT IDENTITY VERIFICATION COMPLETED USING TWO (2) IDENTIFIERS: Name and Date of confirmed by patient verbally. FALL SCREENING: Has the patient had 2 falls in the last year or 1 fall with injury or currently using an Ambulatory Assistive Device (Walker, Cane, Wheelchair, Crutches, etc.)? No PATIENT GENDER DATA: Assigned female at . status: : No status: NO. PATIENT RELEVANT IMPLANT DATA REVIEWED: Not Applicable PATIENT PRESENTS WITH AN IMPLANTABLE OR ATTACHED SOFTWARE RECRUITER: No RADIOLOGY DEPARTMENT: Ultrasound PERIPHERAL IV DATA: Not applicable SIGNED BY: Sangeeta Farooq RDMS December 03, 2024 2:01 PM [place] [place] Observed: 12/03/2024 1:29 PM Status: F Source: [facility] * * *Final Report* * * DATE OF EXAM: Dec 03 2024 1:29PM [facility] 0627 - [place] K[place]BY / PROCEDURE REASON: Abnormal screening mammogram * * * * Physician Interpretation * * * * RESULT: [facility] [address] [place] [address] #[id number] - [facility] [place] #[id number] - [facility] US BREAST LTD HISTORY: 59 year-old patient seen for diagnostic evaluation of the finding(s) described on prior mammogram in both breasts. Patient states no personal history of breast cancer. COMPARISON STUDIES: The present examination has been compared to prior imaging studies dated 01/01/2016 (mammogram), 11/06/2017 (mammogram), 07/05/2022 (mammogram) and 07/11/2024 (mammogram). MAMMOGRAM TECHNIQUE: The study was acquired using full field digital technology and interpreted from soft copy. Digital Breast Tomosynthesis (DBT) images were obtained and used to assist in the interpretation of this examination. MAMMOGRAM FINDINGS: There are scattered areas of fibroglandular density. Throughout both breasts, there is septal thickening and there is skin thickening. Patient has history of renal failure and the findings may be related to diffuse edema. Moreover, the patient has a history of bilateral breast reduction further contributing to areas of septal irregularity. There are no discrete masses. Numerous vascular calcifications without definite suspicious clustered calcifications. ULTRASOUND TECHNIQUE: Targeted ultrasound of the left breast indicated area was performed. Molina scale images were saved. ULTRASOUND FINDINGS: No abnormality is seen at the site of clinical concern. There are no suspicious findings in the imaged area. IMPRESSION: There is no mammographic or sonographic evidence of malignancy. Assessment is somewhat limited because of combination of diffuse edema and postoperative changes. If there are any palpable abnormalities, follow-up is suggested. Return to annual screening mammogram is recommended. Annual mammogram will be due in 8 months. BI-RADS Category 2: Benign RISK: Based on the Tyrer-Cuzick (TC) risk assessment model, this patient has a 2.9% lifetime risk of developing breast cancer, meaning they are at average risk for developing breast cancer. However, this is only an estimate based on available history provided on the patient's questionnaire. We encourage all patients to talk with their providers about these results, further recommendations for managing breast health, and appropriate supplemental screening options if the patient has dense breast tissue. Interpreting Radiologist: Anna Galaviz M.D. Electronically signed on: 12/03/2024 Community Relations Representative: ANSLEY Transcribe Date/Time: Dec 03 2024 1:02P Dictated by: ANNA GALAVIZ MD This examination was interpreted and the report reviewed and electronically signed by: ANNA GALAVIZ MD on Dec 03 2024 2:01PM EST [id number] Observed: 12/03/2024 1:00 PM Status: COMPLETED Source: [facility] ID: [id number] Author: ALEX CALLAHAN Mammo Tech Service: ? Author Type: Plastics Scientist Type: Progress Notes Filed: 12/03/2024 13:01 Note Text: Radiology Service Progress Note PATIENT NAME: Sandy Bravo DATE OF SERVICE: December 03, 2024 TIME: 1:01 PM PATIENT IDENTITY VERIFICATION COMPLETED USING TWO (2) IDENTIFIERS: Name and Date of confirmed by patient verbally. FALL SCREENING: Has the patient had 2 falls in the last year or 1 fall with injury or currently using an Ambulatory Assistive Device (Walker, Cane, Wheelchair, Crutches, etc.)? No PATIENT GENDER DATA: Assigned female at . status: : No status: NO. PATIENT RELEVANT IMPLANT DATA REVIEWED: Not Applicable PATIENT PRESENTS WITH AN IMPLANTABLE OR ATTACHED SOFTWARE RECRUITER: No RADIOLOGY DEPARTMENT: Mammography PERIPHERAL IV DATA: Not applicable SIGNED BY: Kika Cooley December 03, 2024 1:01 PM MR CARDIAC MORPHOLOGY AND FUNCTION W AND WO IV CONTRAST Observed: 11/26/2024 8:04 AM Status: F Source: [facility] Interpreted By: Barbi French, STUDY: MR CARDIAC MORPHOLOGY AND FUNCTION W AND WO IV CONTRAST; 11/26/2024 9:04 am INDICATION: Signs/Symptoms:Asymmetric severe LVH and LVOT gradient. Assess for HCM for pre-renal transplant evaluation. This study is performed to assess myocardial viability and damage, and to quantitate left ventricular and valvular function. ,I11.9 Hypertensive heart disease without heart failure,Z76.82 Awaiting organ transplant status,I25.10 Atherosclerotic heart disease of [place] coronary artery without angina pectoris COMPARISON: Echocardiography dated 09/18/2023 ACCESSION NUMBER(S): [id number] ORDERING CLINICIAN: EDITA CASTELLON TECHNIQUE: Siemens 1.5 Jolly MRI scanner. Turbo spin echo and balanced steady state free precession (bSSFP) imaging for anatomic definition. Dynamic cine bSSFP for cardiac chamber and wall-motion analysis, and valvular analysis. Flow quantification sequences for hemodynamics. Delayed gadolinium enhancement analysis after injection of [address] [employer]. FINDINGS: CARDIAC CHAMBERS Normal atrioventricular and ventriculoarterial concordance. There is a small pericardial effusion. LEFT ATRIUM Normal size. Max index volume is 43.8 mL/m2. RIGHT ATRIUM Normal size. Max index volume is 10.4 mL/m2. INTERATRIAL SEPTUM Intact. LEFT VENTRICLE The left ventricle is normal in size with normal systolic function. There is asymmetric thickening of the mid to basal interventricular septum with wall thickness measuring up to 1.8 cm within the basal anteroseptum. Delayed-enhancement imaging reveals uniformly nulled myocardium, signifying that there has been no prior ischemic myocardial damage. There is also no definite evidence of interstitial fibrosis to suggest an infiltrative process. Myocardial T1 and T2 mapping times are normal within the sampled mid myocardial segments. RIGHT VENTRICLE The right ventricle appears normal in size, shape, and has normal qualitative systolic function. No segmental wall motion abnormalities. No abnormal delayed enhancement in the myocardium. Quantitative left ventricular functional values are as follows: EDV = 144.65 cc; EDVi = 85.26 cc/m2 ESV = 56.51 cc; ESVi = 33.31 cc/m2 Stroke volume = 88.14 cc; SVi = 51.95 cc/m2 LVEF = 60.93 % Absolute Cardiac Output = 6.58 l/min.; COi = 3.88 l/min/m2 LV mass = 145.37 gm; LVMi = 85.68 gm/m2 Quantitative right ventricular functional values are as follows: EDV = 139.66 cc; EDVi = 82.32 cc/m2 ESV = 48.70 cc; ESVi = 28.71 cc/m2 Stroke volume = 90.96 cc; SVi = 53.62 cc/m2 RVEF = 65.13 % Absolute Right Cardiac Output = 6.79 l/min.; COi = 4.00 l/min/m2 INTERVENTRICULAR SEPTUM Intact. AORTIC VALVE There is no aortic regurgitation. Peak through plane velocity within the ascending aorta at rest is 152 cm/sec. Peak through plane velocity with Valsalva through the ascending aorta is 146 cm/sec. Peak through plane velocity below the level of the aortic valve through the left ventricular outflow tract is 149 cm/sec. Flow quantification through the ascending aorta: Forward volume =78.5 cc/beat Reverse volume = 0.6 cc/beat Net forward volume = 77.8 cc/beat Aortic regurgitant fraction = 0.8 % MITRAL VALVE There is no significant mitral regurgitation. No systolic anterior motion of the mitral valve leaflets. TRICUSPID VALVE There is qualitative no tricuspid regurgitation. THORACIC AORTA The thoracic aorta appears normal in course, caliber, and contour. There is no evidence for acute aortic pathology. The arch vessel branching pattern is normal. All the arch branch vessels appear widely patent in their proximal portions. PULMONARY ARTERIES The central pulmonary arteries appear mildly dilated measuring 3.1 cm. SYSTEMIC AND PULMONARY VEINS Normal systemic venous and pulmonary venous return. The SVC and IVC are of normal caliber. Normal pulmonary venous anatomy. CHEST The chest wall is normal. No significant lymphadenopathy or mass is seen in limited images of the mediastinum. Moderate right and small left pleural effusions with associated bibasilar atelectasis. The right-sided effusion has a likely loculated component more anteriorly. Stable 1.9 cm likely vertebral body osseous hemangioma within the midthoracic spine. UPPER ABDOMEN Limited imaging through the upper abdomen reveals no abnormalities of the visualized organs. IMPRESSION: 1. The left ventricle is normal in size with normal systolic function. LVEF = 61%. There is asymmetric thickening of the mid to basal septum with wall thickness measuring up to 1.8 cm. No evidence of left ventricular outflow obstruction. LV mass index = 85.7 gm/m2. 2. There are no findings to suggest prior ischemic damage or an infiltrative process. Normal myocardial T1 and T2 mapping times within the sampled mid myocardial segments. 3. Normal aortic, mitral, and tricuspid valve function. 4. Moderate right and small left pleural effusions as well as a small pericardial effusion. 5. Mildly dilated main pulmonary artery which can be seen with pulmonary hypertension. MACRO: None Signed by: Kelvin French 11/26/2024 12:04 PM Dictation workstation: [id number] PROGRESS Observed: 08/18/2024 6:42 PM Status: COMPLETED Source: [facility] ID: [id number] Author: ASUNCION ROSSI RN Service: ? Author Type: Registered Nurse Type: Progress Notes Filed: 08/18/2024 18:43 Note Text: CDM Telephonic Outreach Provider Action/FYI Contacted for: Routine Telephonic Outreach Contact made with patient: No, unable to leave message. Asuncion Rossi RN August 18, 2024 6:43 PM OANH Observed: 08/18/2024 12:00 AM Status: COMPLETED Source: [facility] Patient Outreach ([facility]) SANDY BRAVO ([id number]) 1965 F Date Time Provider Department 08/18/24 [place]UNCION ROSSI [facility] [place] your visit today, we recorded the following information about you: Asuncion Rossi RN 08/18/2024 6:43 PM Signed [facility] Telephonic Outreach Provider Action/FYI Contacted for: Routine Telephonic Outreach Contact made with patient: No, unable to leave message. Asuncion Rossi RN August 18, 2024 6:43 PM Allergies As of Date: 08/18/2024 Noted Allergy Reaction CODEINE 12/11/2006 8 - GI Upset LATEX 03/22/2012 4 - Hives Comments: 2006 had reaction after surgery PENICILLINS 12/11/2006 7 - Swelling CHLORHEXIDINE 11/26/2018 2 - Rash Date Reviewed: 07/10/2024 Reviewed by: Phyllis Mack LPN - Fully Assessed Reason for Visit: CDM [Other] Cmt: Community Monitoring Outreach Call Prescriptions as of 09/16/2024 - metoprolol tartrate, short acting, (LOPRESSOR) 25 mg tablet Take 1 tablet by mouth every 12 hours. - amLODIPine (NORVASC) 10 mg tablet Take 1 tablet by mouth once daily. - cloNIDine HCl (CATAPRES) 0.2 mg tablet Take 1 tablet by mouth two times a day. - nitroglycerin sublingual (NITROQUICK) 0.4 mg SL tablet Dissolve 1 tablet under the tongue every 5 minutes as needed. - insulin needles, DISPOSABLE, (PEN NEEDLE) 31 gauge x 5/16 Use one needle per dose four times per day. - insulin lispro (HUMALOG KWIKPEN INSULIN) 100 unit/mL Inject 8 Units subcutaneously three times a day before meals. Add 1 unit for each 50 mg/dl above 150 - atorvastatin (LIPITOR) 40 mg tablet Take 1 tablet by mouth daily at bedtime. - levothyroxine (SYNTHROID) 125 mcg tablet Take 1 tablet by mouth once daily. Take on empty stomach. For Thyroid - lisinopril (ZESTRIL) 40 mg tablet Take 1 tablet by mouth once daily. - ciprofloxacin HCl (CILOXAN) 0.3 % ophthalmic solution Use 1 Drop in the left eye four times daily. - SUMAtriptan (IMITREX) 50 mg tablet Take one tablet by mouth at onset of migraine. May repeat in 2 hours if ineffective - insulin detemir U-100 (LEVEMIR FLEXTOUCH U-100 INSULIN) 100 unit/mL (3 mL) injection pen Inject 48 Units subcutaneously daily at bedtime. - ferric citrate 210 mg iron tab Take 1 tablet by mouth once daily. - docusate sodium (COLACE) 100 mg capsule Take 1 capsule by mouth twice daily as needed for Constipation. - NEPHRO-SONDRA 0.8 mg tab Take 1 tablet by mouth once daily. - blood sugar diagnostic (BLOOD GLUCOSE TEST) test strip Test blood sugar(s) 3 times daily. Dx: Type 2 DM - Uncontrolled E11.65 Insulin: Yes - Blood-Glucose Meter (BLOOD GLUCOSE MONITORING) monitoring kit 1 Each three times daily. E11.65. On insulin. - aspirin, enteric coated (ASPIRIN, ENTERIC COATED) 81 mg EC tablet Take 1 tablet by mouth once daily. Problem List As Of Date 08/18/2024 Noted Resolved Calculus of ureter [N20.1] 06/12/2007 03/22/2012 Urinary tract infection, site not specified [N3*06/12/2007 03/22/2012 Renal colic [N23] 06/12/2007 03/22/2012 Controlled type 2 diabetes mellitus without com*09/04/1985 HTN (hypertension) [I10] 09/04/2001 Hyperlipidemia [E78.5] 09/04/1999 Depression [F32.A] 09/04/2006 06/12/2023 Hypothyroid [E03.9] 03/30/2012 ASCVD (arteriosclerotic cardiovascular disease)*05/10/2012 Proteinuria [R80.9] 06/14/2013 CKD (chronic kidney disease) stage 3, GFR 30-59*07/17/2013 05/02/2017 CKD (chronic kidney disease) stage 4, GFR 15-29*04/05/2017 03/02/2018 CKD (chronic kidney disease) stage V requiring *03/01/2018 08/29/2019 ESRD on dialysis (HCC) [N18.6, Z99.2] 05/16/2019 VT (ventricular tachycardia) [I47.20] 05/17/2019 Steal syndrome dialysis vascular access (HCC) [*05/17/2019 02/23/2023 ESRD (end stage renal disease) (HCC) [N18.6] 04/21/2021 10/27/2023 Ventral hernia with obstruction, without gangre*12/09/2021 06/29/2023 Tubular adenoma of colon [D12.6] 11/15/2022 Hyperkalemia [E87.5] 06/20/2023 09/14/2023 Secondary hyperparathyroidism of renal origin (*06/20/2023 Abnormal EKG [R94.31] 06/20/2023 09/14/2023 Hypertrophic cardiomyopathy (HCC) [I42.2] 11/08/2023 Congestive heart failure (HCC) [I50.9] History of echocardiogram [Z92.89] 11/07/2023 History of stress test [Z92.89] 06/21/2023 Encounter for screening for stenosis of carotid*03/27/2023 Arteriovenous fistula, acquired (HCC) [I77.0] 06/13/2024 Peripheral arterial disease (HCC) [I73.9] 07/10/2024 Encounter Status:Closed by ASUNCION ROSSI on 08/18/24 PROGRESS Observed: 08/15/2024 3:42 PM Status: COMPLETED [facility] [id number] Author: ASUNCION ROSSI, RN Service: ? Author Type: Registered Nurse Type: Progress Notes Filed: 08/15/2024 15:49 Note Text: CDM Telephonic Outreach Provider Action/FYI -chf, ckd, htn, dm Patient states she has a rash on her arms, back and chest that started after dialysis this past Monday. Patient states [facility] nurse sent a message to her kidney doctor about it. Patient states she has been taking Benadryl and it is helping. Patient denied needing virtualist or PCP appointment, but agreed for me to call her next week to see if has resolved. Patient denies any questions, concerns, or needs. Reviewed upcoming appointments. Contacted for: Routine Telephonic Outreach Contact made with patient: Yes Patient identified by name and date of . Discussed care with patient Are you experiencing any new or worsening symptoms you need to talk about today? No Disease Specific Do you check your blood pressure at home? No Do you have new or worsening shortness of breath with activity? No Do you have new or worsening trouble breathing while lying flat? No Do you have new or worsening swelling of legs, feet or ankles? No Do you feel like you are dehydrated for any reason, including not being able to eat or drink normally, or having less urine/much darker urine than normal for you? No Do you check your daily weight at home? No Based on automatic lathe tender, the following disposition is advised: No symptoms or symptoms present, not severe. Routed to: No Action Needed JEANNETTE Education Provided this Outreach: No Asuncion Rossi RN August 15, 2024 3:46 PM CNPTOUTREACH Observed: 08/15/2024 12:00 AM Status: COMPLETED Source: [facility] Patient Outreach ([facility]) SANDY BRAVO ([id number]) 1965 F Date Time Provider Department 08/15/24 ASUNCION ROSSI During your visit today, we recorded the following information about you: Asuncion Rossi RN 08/15/2024 3:49 PM Signed [facility] Telephonic Outreach Provider Schuyler/GERMÁN Silvachf, ckd, htn, dm Patient states she has a rash on her arms, back and chest that started after dialysis this past Monday. Patient states [facility] nurse sent a message to her kidney doctor about it. Patient states she has been taking Benadryl and it is helping. Patient denied needing virtualist or PCP appointment, but agreed for me to call her next week to see if has resolved. Patient denies any questions, concerns, or needs. Reviewed upcoming appointments. Contacted for: Routine Telephonic Outreach Contact made with patient: Yes Patient identified by name and date of . Discussed care with patient Are you experiencing any new or worsening symptoms you need to talk about today? No Disease Specific Do you check your blood pressure at home? No Do you have new or worsening shortness of breath with activity? No Do you have new or worsening trouble breathing while lying flat? No Do you have new or worsening swelling of legs, feet or ankles? No Do you feel like you are dehydrated for any reason, including not being able to eat or drink normally, or having less urine/much darker urine than normal for you? No Do you check your daily weight at home? No Based on automatic lathe tender, the following disposition is advised: No symptoms or symptoms present, not severe. Routed to: No Action Needed JEANNETTE Education Provided this Outreach: No Asuncion Rossi RN August 15, 2024 3:46 PM Allergies As of Date: 08/15/2024 Noted Allergy Reaction CODEINE 12/11/2006 8 - GI Upset LATEX 03/22/2012 4 - Hives Comments: 2006 had reaction after surgery PENICILLINS 12/11/2006 7 - Swelling CHLORHEXIDINE 11/26/2018 2 - Rash Date Reviewed: 07/10/2024 Reviewed by: Phyllis Mack LPN - Fully Assessed Reason for Visit: CDM [Other] Cmt: Community Monitoring Outreach Call Prescriptions as of 08/15/2024 - cloNIDine HCl (CATAPRES) 0.2 mg tablet Take 1 tablet by mouth two times a day. - nitroglycerin sublingual (NITROQUICK) 0.4 mg SL tablet Dissolve 1 tablet under the tongue every 5 minutes as needed. - insulin needles, DISPOSABLE, (PEN NEEDLE) 31 gauge x 5/16 Use one needle per dose four times per day. - insulin lispro (HUMALOG KWIKPEN INSULIN) 100 unit/mL Inject 8 Units subcutaneously three times a day before meals. Add 1 unit for each 50 mg/dl above 150 - atorvastatin (LIPITOR) 40 mg tablet Take 1 tablet by mouth daily at bedtime. - levothyroxine (SYNTHROID) 125 mcg tablet Take 1 tablet by mouth once daily. Take on empty stomach. For Thyroid - lisinopril (ZESTRIL) 40 mg tablet Take 1 tablet by mouth once daily. - metoprolol tartrate, short acting, (LOPRESSOR) 25 mg tablet Take 1 tablet by mouth every 12 hours. - amLODIPine (NORVASC) 10 mg tablet Take 1 tablet by mouth once daily. - ciprofloxacin HCl (CILOXAN) 0.3 % ophthalmic solution Use 1 Drop in the left eye four times daily. - SUMAtriptan (IMITREX) 50 mg tablet Take one tablet by mouth at onset of migraine. May repeat in 2 hours if ineffective - insulin detemir U-100 (LEVEMIR FLEXTOUCH U-100 INSULIN) 100 unit/mL (3 mL) injection pen Inject 48 Units subcutaneously daily at bedtime. - ferric citrate 210 mg iron tab Take 1 tablet by mouth once daily. - docusate sodium (COLACE) 100 mg capsule Take 1 capsule by mouth twice daily as needed for Constipation. - NEPHRO-SONDRA 0.8 mg tab Take 1 tablet by mouth once daily. - blood sugar diagnostic (BLOOD GLUCOSE TEST) test strip Test blood sugar(s) 3 times daily. Dx: Type 2 DM - Uncontrolled E11.65 Insulin: Yes - Blood-Glucose Meter (BLOOD GLUCOSE MONITORING) monitoring kit 1 Each three times daily. E11.65. On insulin. - aspirin, enteric coated (ASPIRIN, ENTERIC COATED) 81 mg EC tablet Take 1 tablet by mouth once daily. Problem List As Of Date 08/15/2024 Noted Resolved Calculus of ureter [N20.1] 06/12/2007 03/22/2012 Urinary tract infection, site not specified [N3*06/12/2007 03/22/2012 Renal colic [N23] 06/12/2007 03/22/2012 Controlled type 2 diabetes mellitus without com*09/04/1985 HTN (hypertension) [I10] 09/04/2001 Hyperlipidemia [E78.5] 09/04/1999 Depression [F32.A] 09/04/2006 06/12/2023 Hypothyroid [E03.9] 03/30/2012 ASCVD (arteriosclerotic cardiovascular disease)*05/10/2012 Proteinuria [R80.9] 06/14/2013 CKD (chronic kidney disease) stage 3, GFR 30-59*07/17/2013 05/02/2017 CKD (chronic kidney disease) stage 4, GFR 15-29*04/05/2017 03/02/2018 CKD (chronic kidney disease) stage V requiring *03/01/2018 08/29/2019 ESRD on dialysis (HCC) [N18.6, Z99.2] 05/16/2019 VT (ventricular tachycardia) [I47.20] 05/17/2019 Steal syndrome dialysis vascular access (HCC) [*05/17/2019 02/23/2023 ESRD (end stage renal disease) (HCC) [N18.6] 04/21/2021 10/27/2023 Ventral hernia with obstruction, without gangre*12/09/2021 06/29/2023 Tubular adenoma of colon [D12.6] 11/15/2022 Hyperkalemia [E87.5] 06/20/2023 09/14/2023 Secondary hyperparathyroidism of renal origin (*06/20/2023 Abnormal EKG [R94.31] 06/20/2023 09/14/2023 Hypertrophic cardiomyopathy (HCC) [I42.2] 11/08/2023 Congestive heart failure (HCC) [I50.9] History of echocardiogram [Z92.89] 11/07/2023 History of stress test [Z92.89] 06/21/2023 Encounter for screening for stenosis of carotid*03/27/2023 Arteriovenous fistula, acquired (HCC) [I77.0] 06/13/2024 Peripheral arterial disease (HCC) [I73.9] 07/10/2024 Encounter Status:Closed by ASUNCION ROSSI on 08/15/24 PROGRESS Observed: 07/31/2024 11:09 AM Status: COMPLETED Source: [facility] ID: [id number] Author: ASUNCION ROSSI, RN Service: ? Author Type: Registered Nurse Type: Progress Notes Filed: 07/31/2024 11:11 Note Text: CDM Telephonic Outreach Provider Action/FYI Contacted for: Routine Telephonic Outreach Contact made with patient: No, unable to leave message. Asuncion Rossi RN July 31, 2024 11:10 AM CNPTOUTREACH Observed: 07/31/2024 12:00 AM Status: COMPLETED Source: [facility] LAWRENCESANDY Mai ([id number]) 1965 F Date Time Provider Department 07/31/24 ASUNCION ROSSIOnur During your visit today, we recorded the following information about you: Asuncion Rossi RN 07/31/2024 11:11 AM Signed CDM Telephonic Outreach Provider Action/FYI Contacted for: Routine Telephonic Outreach Contact made with patient: No, unable to leave message. Asuncion Rossi RN July 31, 2024 11:10 AM Allergies As of Date: 07/31/2024 Noted Allergy Reaction CODEINE 12/11/2006 8 - GI Upset LATEX 03/22/2012 4 - Hives Comments: 2006 had reaction after surgery PENICILLINS 12/11/2006 7 - Swelling CHLORHEXIDINE 11/26/2018 2 - Rash Date Reviewed: 07/10/2024 Reviewed by: Phyllis Mack LPN - Fully Assessed Reason for Visit: CDM [Other] Cmt: Community Monitoring Outreach Call Prescriptions as of 08/14/2024 - cloNIDine HCl (CATAPRES) 0.2 mg tablet Take 1 tablet by mouth two times a day. - nitroglycerin sublingual (NITROQUICK) 0.4 mg SL tablet Dissolve 1 tablet under the tongue every 5 minutes as needed. - insulin needles, DISPOSABLE, (PEN NEEDLE) 31 gauge x 5/16 Use one needle per dose four times per day. - insulin lispro (HUMALOG KWIKPEN INSULIN) 100 unit/mL Inject 8 Units subcutaneously three times a day before meals. Add 1 unit for each 50 mg/dl above 150 - atorvastatin (LIPITOR) 40 mg tablet Take 1 tablet by mouth daily at bedtime. - levothyroxine (SYNTHROID) 125 mcg tablet Take 1 tablet by mouth once daily. Take on empty stomach. For Thyroid - lisinopril (ZESTRIL) 40 mg tablet Take 1 tablet by mouth once daily. - metoprolol tartrate, short acting, (LOPRESSOR) 25 mg tablet Take 1 tablet by mouth every 12 hours. - amLODIPine (NORVASC) 10 mg tablet Take 1 tablet by mouth once daily. - ciprofloxacin HCl (CILOXAN) 0.3 % ophthalmic solution Use 1 Drop in the left eye four times daily. - SUMAtriptan (IMITREX) 50 mg tablet Take one tablet by mouth at onset of migraine. May repeat in 2 hours if ineffective - insulin detemir U-100 (LEVEMIR FLEXTOUCH U-100 INSULIN) 100 unit/mL (3 mL) injection pen Inject 48 Units subcutaneously daily at bedtime. - ferric citrate 210 mg iron tab Take 1 tablet by mouth once daily. - docusate sodium (COLACE) 100 mg capsule Take 1 capsule by mouth twice daily as needed for Constipation. - NEPHRO-SONDRA 0.8 mg tab Take 1 tablet by mouth once daily. - blood sugar diagnostic (BLOOD GLUCOSE TEST) test strip Test blood sugar(s) 3 times daily. Dx: Type 2 DM - Uncontrolled E11.65 Insulin: Yes - Blood-Glucose Meter (BLOOD GLUCOSE MONITORING) monitoring kit 1 Each three times daily. E11.65. On insulin. - aspirin, enteric coated (ASPIRIN, ENTERIC COATED) 81 mg EC tablet Take 1 tablet by mouth once daily. Problem List As Of Date 07/31/2024 Noted Resolved Calculus of ureter [N20.1] 06/12/2007 03/22/2012 Urinary tract infection, site not specified [N3*06/12/2007 03/22/2012 Renal colic [N23] 06/12/2007 03/22/2012 Controlled type 2 diabetes mellitus without com*09/04/1985 HTN (hypertension) [I10] 09/04/2001 Hyperlipidemia [E78.5] 09/04/1999 Depression [F32.A] 09/04/2006 06/12/2023 Hypothyroid [E03.9] 03/30/2012 ASCVD (arteriosclerotic cardiovascular disease)*05/10/2012 Proteinuria [R80.9] 06/14/2013 CKD (chronic kidney disease) stage 3, GFR 30-59*07/17/2013 05/02/2017 CKD (chronic kidney disease) stage 4, GFR 15-29*04/05/2017 03/02/2018 CKD (chronic kidney disease) stage V requiring *03/01/2018 08/29/2019 ESRD on dialysis (HCC) [N18.6, Z99.2] 05/16/2019 VT (ventricular tachycardia) [I47.20] 05/17/2019 Steal syndrome dialysis vascular access (HCC) [*05/17/2019 02/23/2023 ESRD (end stage renal disease) (HCC) [N18.6] 04/21/2021 10/27/2023 Ventral hernia with obstruction, without gangre*12/09/2021 06/29/2023 Tubular adenoma of colon [D12.6] 11/15/2022 Hyperkalemia [E87.5] 06/20/2023 09/14/2023 Secondary hyperparathyroidism of renal origin (*06/20/2023 Abnormal EKG [R94.31] 06/20/2023 09/14/2023 Hypertrophic cardiomyopathy (HCC) [I42.2] 11/08/2023 Congestive heart failure (HCC) [I50.9] History of echocardiogram [Z92.89] 11/07/2023 History of stress test [Z92.89] 06/21/2023 Encounter for screening for stenosis of carotid*03/27/2023 Arteriovenous fistula, acquired (HCC) [I77.0] 06/13/2024 Peripheral arterial disease (HCC) [I73.9] 07/10/2024 Encounter Status:Closed by ASUNCION ROSSI on 07/31/24 PROGRESS Observed: 07/30/2024 10:13 AM Status: COMPLETED Source: [facility] ID: [id number] Author: ASUNCION ROSSI RN Service: ? Author Type: Registered Nurse Type: Progress Notes Filed: 07/30/2024 10:14 Note Text: CDM Telephonic Outreach Provider Action/FYI Contacted for: Routine Telephonic Outreach Contact made with patient: No, unable to leave message. Asuncion Rossi RN July 30, 2024 10:14 AM CNPTOUTREACH Observed: 07/30/2024 12:00 AM Status: COMPLETED Source: [facility] Patient Outreach ([facility]) SANDY BRAVO ([id number]) 1965 F Date Time Provider Department 07/30/24 ASUNCION ROSSI [facility] [place] your visit today, we recorded the following information about you: Asuncion Rossi RN 07/30/2024 10:14 AM Signed CDM Telephonic Outreach Provider Action/FYI Contacted for: Routine Telephonic Outreach Contact made with patient: No, unable to leave message. Asuncion Rossi RN July 30, 2024 10:14 AM Allergies As of Date: 07/30/2024 Noted Allergy Reaction CODEINE 12/11/2006 8 - GI Upset LATEX 03/22/2012 4 - Hives Comments: 2006 had reaction after surgery PENICILLINS 12/11/2006 7 - Swelling CHLORHEXIDINE 11/26/2018 2 - Rash Date Reviewed: 07/10/2024 Reviewed by: Phyllis Mack LPN - Fully Assessed Reason for Visit: CDM [Other] Cmt: Community Monitoring Outreach Call Prescriptions as of 07/30/2024 - cloNIDine HCl (CATAPRES) 0.2 mg tablet Take 1 tablet by mouth two times a day. - nitroglycerin sublingual (NITROQUICK) 0.4 mg SL tablet Dissolve 1 tablet under the tongue every 5 minutes as needed. - insulin needles, DISPOSABLE, (PEN NEEDLE) 31 gauge x 5/16 Use one needle per dose four times per day. - insulin lispro (HUMALOG KWIKPEN INSULIN) 100 unit/mL Inject 8 Units subcutaneously three times a day before meals. Add 1 unit for each 50 mg/dl above 150 - atorvastatin (LIPITOR) 40 mg tablet Take 1 tablet by mouth daily at bedtime. - levothyroxine (SYNTHROID) 125 mcg tablet Take 1 tablet by mouth once daily. Take on empty stomach. For Thyroid - lisinopril (ZESTRIL) 40 mg tablet Take 1 tablet by mouth once daily. - metoprolol tartrate, short acting, (LOPRESSOR) 25 mg tablet Take 1 tablet by mouth every 12 hours. - amLODIPine (NORVASC) 10 mg tablet Take 1 tablet by mouth once daily. - ciprofloxacin HCl (CILOXAN) 0.3 % ophthalmic solution Use 1 Drop in the left eye four times daily. - SUMAtriptan (IMITREX) 50 mg tablet Take one tablet by mouth at onset of migraine. May repeat in 2 hours if ineffective - insulin detemir U-100 (LEVEMIR FLEXTOUCH U-100 INSULIN) 100 unit/mL (3 mL) injection pen Inject 48 Units subcutaneously daily at bedtime. - ferric citrate 210 mg iron tab Take 1 tablet by mouth once daily. - docusate sodium (COLACE) 100 mg capsule Take 1 capsule by mouth twice daily as needed for Constipation. - NEPHRO-SONDRA 0.8 mg tab Take 1 tablet by mouth once daily. - blood sugar diagnostic (BLOOD GLUCOSE TEST) test strip Test blood sugar(s) 3 times daily. Dx: Type 2 DM - Uncontrolled E11.65 Insulin: Yes - Blood-Glucose Meter (BLOOD GLUCOSE MONITORING) monitoring kit 1 Each three times daily. E11.65. On insulin. - aspirin, enteric coated (ASPIRIN, ENTERIC COATED) 81 mg EC tablet Take 1 tablet by mouth once daily. Problem List As Of Date 07/30/2024 Noted Resolved Calculus of ureter [N20.1] 06/12/2007 03/22/2012 Urinary tract infection, site not specified [N3*06/12/2007 03/22/2012 Renal colic [N23] 06/12/2007 03/22/2012 Controlled type 2 diabetes mellitus without com*09/04/1985 HTN (hypertension) [I10] 09/04/2001 Hyperlipidemia [E78.5] 09/04/1999 Depression [F32.A] 09/04/2006 06/12/2023 Hypothyroid [E03.9] 03/30/2012 ASCVD (arteriosclerotic cardiovascular disease)*05/10/2012 Proteinuria [R80.9] 06/14/2013 CKD (chronic kidney disease) stage 3, GFR 30-59*07/17/2013 05/02/2017 CKD (chronic kidney disease) stage 4, GFR 15-29*04/05/2017 03/02/2018 CKD (chronic kidney disease) stage V requiring *03/01/2018 08/29/2019 ESRD on dialysis (HCC) [N18.6, Z99.2] 05/16/2019 VT (ventricular tachycardia) [I47.20] 05/17/2019 Steal syndrome dialysis vascular access (HCC) [*05/17/2019 02/23/2023 ESRD (end stage renal disease) (HCC) [N18.6] 04/21/2021 10/27/2023 Ventral hernia with obstruction, without gangre*12/09/2021 06/29/2023 Tubular adenoma of colon [D12.6] 11/15/2022 Hyperkalemia [E87.5] 06/20/2023 09/14/2023 Secondary hyperparathyroidism of renal origin (*06/20/2023 Abnormal EKG [R94.31] 06/20/2023 09/14/2023 Hypertrophic cardiomyopathy (HCC) [I42.2] 11/08/2023 Congestive heart failure (HCC) [I50.9] History of echocardiogram [Z92.89] 11/07/2023 History of stress test [Z92.89] 06/21/2023 Encounter for screening for stenosis of carotid*03/27/2023 Arteriovenous fistula, acquired ([facility]) [I77.0] 06/13/2024 Peripheral arterial disease ([facility]) [I73.9] 07/10/2024 Encounter Status:Closed by ASUNCION ROSSI on 07/30/24 [facility] US CAROTID ARTERY DUPLE X BILATERAL Observed: 07/25/2024 9:04 AM Status: F Source: [place] [id number] and Vascular Lab Report [facility] US CAROTID ARTERY DUPLEX BILATERAL Patient Name: SANDY BRAVO Reading Physician: [id number] Justin Berg DO Study Date: 07/25/2024 Ordering Physician: [id number] ROLY MORALES MRN/PID: [id number] Technologist: Lilliam Mcfarlane RVT Technologist 2: Date of /Age: 5 1965 / 59 years Gender: F Admission Status: Outpatient Location Performed: [facility] Diagnosis/ICD: Other specified symptoms and signs involving the circulatory and respiratory systems-R09.89; Encounter for other preprocedural examination-Z01.818 Indication: Pre-operative exam CPT Codes: 41050 Cerebrovascular Carotid Duplex scan complete CONCLUSIONS: Right Carotid: Findings are consistent with less than 50% stenosis of the right proximal internal carotid artery. Right external carotid artery appears patent with no evidence of stenosis. The right vertebral artery is patent with antegrade flow. No evidence of hemodynamically significant stenosis in the right subclavian artery. Left Carotid: Findings are consistent with less than 50% stenosis of the left proximal internal carotid artery. Left external carotid artery appears patent with no evidence of stenosis. The left vertebral artery is patent with antegrade flow. No evidence of hemodynamically significant stenosis in the left subclavian artery. Imaging & Doppler Findings: Right Plaque Morph: The proximal right internal carotid artery demonstrates calcified plaque. The proximal right external carotid artery demonstrates heterogenous plaque. Left Plaque Morph: The proximal left internal carotid artery demonstrates calcified plaque. The proximal left external carotid artery demonstrates heterogenous and calcified plaque. The distal left common carotid artery demonstrates heterogenous plaque. Right Left PSV EDV PSV EDV 82 cm/s CCA P 84 cm/s 68 cm/s CCA D 61 cm/s 77 cm/s 16 cm/s ICA P 149 cm/s 21 cm/s 165 cm/s 21 cm/s ICA M 120 cm/s 17 cm/s 112 cm/s 18 cm/s ICA D 102 cm/s 17 cm/s 119 cm/s ECA 213 cm/s 55 cm/s 6 cm/s Vertebral 50 cm/s 10 cm/s 177 cm/s Subclavian 162 cm/s Right Left ICA/CCA Ratio 1.1 2.4 [id number] Justin Berg DO Final ECG 12-LEAD Observed: 07/23/2024 5:32 PM Status: F Source: [facility] Ventricular Rate 82 Atrial Rate 82 P-R Interval 154 QRS Duration 136 Q-T Interval 434 QTC Calculation(Bazett) 507 P [place] -9 R [place] -43 T [place] 104 QRS Count 13 Q Onset 208 P Onset 131 P Offset 183 T Offset 425 QTC [place] 481 Diagnosis Normal sinus rhythm Left axis deviation Right bundle branch block Left ventricular hypertrophy with QRS widening and repolarization abnormality Abnormal ECG When compared with ECG of 16-APR-2024 11:05, No significant change was found Confirmed by Jigar Morris ([id number]) on 08/20/2024 8:59:[address] CARDIAC SCORING WO IV CONTRAST Observed: 07/11/2024 3:15 PM Status: F Source: [facility] Interpreted By: Donavon Morton , STUDY: CT CARDIAC SCORING WO IV CONTRAST; 07/11/2024 3:31 pm INDICATION: Signs/Symptoms:pre kidney transplant evaluation. COMPARISON: CT of the chest of 04/16/2024 ACCESSION NUMBER(S): [id number] ORDERING CLINICIAN: ROLY MORALES TECHNIQUE: Using prospective ECG gating, CT scan of the coronary arteries was performed without intravenous contrast. Coronary calcium scoring was performed according to the method of Agatston. FINDINGS: The score and distribution of calcium in the coronary arteries is as follows: LM 0.6 LAD 195.7 LCx 113.25 RCA 0 Total 339.95 The heart size is normal and there is no pericardial effusion. The chest vasculature is unremarkable.There is no significant mediastinal or hilar adenopathy. There is a partially included but increased and probably partially loculated right pleural effusion. The visualized upper abdominal contents are within normal limits. The bony structures are intact. IMPRESSION: Coronary artery calcium score of 339.95 Right pleural effusion. Coronary artery calcium scoring may be helpful in predicting the risk for future coronary heart disease events. According to the [employer] Clinical Expert Consensus Task Force, such testing provides important prognostic information in patients with more than one coronary heart disease risk factor. The coronary artery calcium score correlates with the annual risk of a non-fatal myocardial infarction or coronary heart disease . Coronary artery score Annual Risk 0-99 0.4% 100-399 1.3% >400 2.4% These three breakpoints correspond to lower, intermediate and high risk states for future coronary events. Such information should be used, along with appropriate clinical judgment, to make decisions regarding the intensity of risk factor management strategies to treat blood lipids and to modify other non-lipid coronary risk factors. Reference: Jessica P et al. Circulation. 2007; 115:402-426 Signed by: Donavon Morton 07/16/2024 5:46 PM Dictation workstation: [id number] [facility] SCREENING Observed: 07/11/2024 9:46 AM Status: F Source: [facility] * * *Final Report* * * DATE OF EXAM: Jul 11 2024 9:46AM KEVIN [id number] - KUNAL SCREENING / PROCEDURE REASON: Encounter for screening mammogram for breast cancer * * * * Physician Interpretation * * * * RESULT: [place] [address] HISTORY: Patient is 59 years old and is seen for screening and is asymptomatic in both breasts. Patient states no personal history of breast cancer. Patient states no personal history of other cancers. COMPARISON STUDIES: The present examination has been compared to prior imaging studies dated 01/01/2016 (mammogram), 11/06/2017 (mammogram) and 07/05/2022 (mammogram). MAMMOGRAM TECHNIQUE: The study was acquired using full field digital technology and interpreted from soft copy. Digital Breast Tomosynthesis (DBT) images were obtained and used to assist in the interpretation of this examination. Computer-aided detection was utilized by the radiologist in the interpretation of this examination. MAMMOGRAM FINDINGS: There are scattered areas of fibroglandular density. There are asymmetries in the upper outer quadrant of both breasts. IMPRESSION: Asymmetries in both breasts require additional evaluation. Diagnostic mammogram is recommended. BI-RADS Category 0: Incomplete: Needs Additional Imaging Evaluation RISK: Based on the Tyrer-Cuzick (TC) risk assessment model, this patient has a 2.9% lifetime risk of developing breast cancer, meaning they are at average risk for developing breast cancer. However, this is only an estimate based on available history provided on the patient's questionnaire. We encourage all patients to talk with their providers about these results, further recommendations for managing breast health, and appropriate supplemental screening options if the patient has dense breast tissue. Interpreting Radiologist: Christina Torres M.D. Electronically signed on: 07/12/2024 Community Relations Representative: ANSLEY Transcribe Date/Time: Jul 11 2024 9:24A Dictated by: CHRISTINA TORRES MD This examination was interpreted and the report reviewed and electronically signed by: CHRISTINA TORRES MD on Jul 12 2024 11:46AM EST [id number] PROGRESS Observed: 07/11/2024 9:30 AM Status: COMPLETED Source: [facility] HNO ID: [id number] Author: ALEX CALLAHAN Mammo Tech Service: ? Author Type: Plastics Scientist Type: Progress Notes Filed: 07/11/2024 09:35 Note Text: Radiology Service Progress Note PATIENT NAME: Sandy Bravo DATE OF SERVICE: July 11, 2024 TIME: 9:35 AM PATIENT IDENTITY VERIFICATION COMPLETED USING TWO (2) IDENTIFIERS: Name and Date of confirmed by patient verbally. FALL SCREENING: Has the patient had 2 falls in the last year or 1 fall with injury or currently using an Ambulatory Assistive Device (Walker, Cane, Wheelchair, Crutches, etc.)? No PATIENT GENDER DATA: Female. status: : No status: NO. PATIENT RELEVANT IMPLANT DATA REVIEWED: Not Applicable PATIENT PRESENTS WITH AN IMPLANTABLE OR ATTACHED SOFTWARE RECRUITER: No RADIOLOGY DEPARTMENT: Mammography PERIPHERAL IV DATA: Not applicable SIGNED BY: Kika Cooley July 11, 2024 9:35 AM PROGRESS Observed: 07/10/2024 4:11 PM Status: COMPLETED Source: [facility] HNO ID: [id number] Author: ANTHONY THOMAS MD Service: ? Author Type: Physician Type: Progress Notes Filed: 07/10/2024 16:21 Note Text: [facility] DEPARTMENT OF VASCULAR SURGERY OUTPATIENT VISIT DATE July 10, 2024 OUTPATIENT VISIT TYPE ESTABLISHED SERVICE DATE: 07/10/2024 SERVICE TIME: 4:11 PM PRIMARY CARE PHYSICIAN: Maldonado Denny MD HISTORY OF PRESENT ILLNESS: Ms. Bravo is a 59 year old female who presents today for a vascular surgery follow-up visit today. Arm swelling on the right has resolved. PAST MEDICAL HISTORY Diagnosis Date Acute kidney failure (HCC) 01/14/2018 Anxiety Arterial steal syndrome (HCC) 12/2018 Left AVF Calculus of ureter 06/12/2007 CKD (chronic kidney disease) stage V requiring chronic dialysis (HCC) 03/01/2018 Dr. Pendleton, nephrology. Congestive heart failure (HCC) Constipation Depression 09/04/2006 Encounter for screening for stenosis of carotid artery 03/27/2023 Less then 50% calcification bilaterally. ESRD on dialysis (HCC) 05/16/2019 GERD (gastroesophageal reflux disease) Hemorrhoids History of echocardiogram 11/07/2023 EF 67%. Severe septal left ventricular hypertrophy. Grade I left ventricular diastolic dysfunction. History of echocardiogram 07/25/2019 EF 70%. Normal scan History of stress test 07/25/2019 EF 62%. No ischemia. History of stress test 07/09/2020 EF 50%. Septal hypokinesis with borderline normal systolic function. History of stress test 06/21/2023 EF 67%. No ischemia. Normal scan HTN (hypertension) 09/04/2001 Hyperlipidemia 09/04/1999 Hypertrophic cardiomyopathy (HCC) 07/25/2019 echo in 2023 confirms 40mmhg gradient with valsalva Hypothyroid 03/30/2012 Proteinuria 06/14/2013 Renal colic 06/12/2007 Secondary hyperparathyroidism of renal origin ([facility]) 06/20/2023 Steal syndrome dialysis vascular access ([facility]) 05/17/2019 Thyroid disorder TIA (transient ischemic attack) 06/2019 Tubular adenoma of colon 11/15/2022 Type II or unspecified type diabetes mellitus without mention of complication, not stated as uncontrolled 09/04/1985 Ventral hernia with bowel obstruction 06/01/2023 PAST SURGICAL HISTORY Procedure Laterality Date APPENDECTOMY 1992 AV ANASTOMIES OPEN;BY BASILIC VEIN WINN Right 04/20/2020 transpose basilic vein fistula, R arm AV FISTULA OR GRAFT VENOUS Left 10/04/2017 AV FISTULA OR GRAFT VENOUS Left 09/20/2018 redo, failure to mature AV FISTULA OR GRAFT VENOUS Right 04/21/2021 BOWEL RESECTION HX 2006 CHOLECYSTECTOMY 1985 Cholecystectomy COLONOSCOPY SCREENING 11/15/2022 COLOSTOMY/SKIN LEVEL CECOSTOMY 2007 [id number], reversed 2007 CREATION OF AVF, PERCUTANEOUS USING MAGNETIC-GUIDED ARTERIAL AND VENOUS CATHETERS AND RADIOFREQUENCY ENERGY Right 11/14/2019 RIGHT AVF stage I EXPLORATORY LAPAROTOMY CELIOTOMY W/WO BIOPSY SPX 2006 Laparotomy, exp EXPLORATORY LAPAROTOMY, CELIOTOMY-SP 05/31/2023 lysis of adhesions, small bowel enterotomy repair. IR VENOUS FISTULAGRAM Left 01/22/2019 Left SC balloon LEFT HEART CATH,PERCUTANEOUS 03/12/2012 Medical Mx LEFT HEART CATH,PERCUTANEOUS 05/14/2018 Medical Mx PAST SURGICAL HISTORY OF Left 05/16/2019 LUE DRIL (proximal brachial to distal brachial artery bypass with RLE rGSV PAST SURGICAL HISTORY OF Left Cataract removed REDUCTION OF LARGE BREAST 1989 SALPINGECTOMY OR OOPHERECTOMY-ECTOPIC 1986 SLING OPER STRES INCONTINENCE 1998 TOTAL ABDOMINAL HYSTERECT W/WO RMVL TUBE OVARY 1990 Hysterectomy, RUSSELL SOCIAL HISTORY Social History Tobacco Use Smoking status: Former Current packs/day: 0.00 Average packs/day: 1.5 packs/day for 3.0 years (4.5 ttl pk-yrs) Types: Cigarettes Start date: 09/04/2002 Quit date: 09/04/2005 Years since quittin.8 Smokeless tobacco: Never Tobacco comments: quit march 10 Vaping Use Vaping status: Never Used Substance Use Topics Alcohol use: No Drug use: No MEDICATIONS: cloNIDine HCl (CATAPRES) 0.2 mg tablet Take 1 tablet by mouth two times a day. nitroglycerin sublingual (NITROQUICK) 0.4 mg SL tablet Dissolve 1 tablet under the tongue every 5 minutes as needed. insulin lispro (HUMALOG KWIKPEN INSULIN) 100 unit/mL Inject 8 Units subcutaneously three times a day before meals. Add 1 unit for each 50 mg/dl above 150 atorvastatin (LIPITOR) 40 mg tablet Take 1 tablet by mouth daily at bedtime. levothyroxine (SYNTHROID) 125 mcg tablet Take 1 tablet by mouth once daily. Take on empty stomach. For Thyroid lisinopril (ZESTRIL) 40 mg tablet Take 1 tablet by mouth once daily. metoprolol tartrate, short acting, (LOPRESSOR) 25 mg tablet Take 1 tablet by mouth every 12 hours. amLODIPine (NORVASC) 10 mg tablet Take 1 tablet by mouth once daily. ciprofloxacin HCl (CILOXAN) 0.3 % ophthalmic solution Use 1 Drop in the left eye four times daily. SUMAtriptan (IMITREX) 50 mg tablet Take one tablet by mouth at onset of migraine. May repeat in 2 hours if ineffective insulin detemir U-100 (LEVEMIR FLEXTOUCH U-100 INSULIN) 100 unit/mL (3 mL) injection pen Inject 48 Units subcutaneously daily at bedtime. ferric citrate 210 mg iron tab Take 1 tablet by mouth once daily. docusate sodium (COLACE) 100 mg capsule Take 1 capsule by mouth twice daily as needed for Constipation. NEPHRO-SONDRA 0.8 mg tab Take 1 tablet by mouth once daily. aspirin, enteric coated (ASPIRIN, ENTERIC COATED) 81 mg EC tablet Take 1 tablet by mouth once daily. insulin needles, DISPOSABLE, (PEN NEEDLE) 31 gauge x 5/16 Use one needle per dose four times per day. blood sugar diagnostic (BLOOD GLUCOSE TEST) test strip Test blood sugar(s) 3 times daily. Dx: Type 2 DM - Uncontrolled E11.65 Insulin: Yes Blood-Glucose Meter (BLOOD GLUCOSE MONITORING) monitoring kit 1 Each three times daily. E11.65. On insulin. ALLERGIES: ALLERGIES Allergen Reactions Codeine GI Upset Latex Hives 2005 had reaction after surgery Penicillins Swelling Chlorhexidine Rash PHYSICAL EXAM: There were no vitals taken for this visit. General: Alert and oriented Integumentary: Normal color, no rash, no lesions. HEENT: EOM, pupils equal, round and reactive. Cardiovascular: Normal S1 AND S2, no rubs, murmurs or gallops. No JVD., Pulse regular. Lungs: Normal breath sounds, no wheezes or crackles. Abdomen: Soft, non-tender, no rigidity. Diagnostic tests reviewed for today's visit: IMPRESSION: Ms. Bravo is a 59 year old female right upper extremity graft.. PLAN and RECOMMENDATIONS: Follow-up in 12 months sooner if symptoms recur SIGNATURE: Anthony Thomas MD PATIENT NAME: Sandy Bravo DATE: July 10, 2024 TIME: 4:11 PM CNOV Observed: 07/10/2024 2:45 PM Status: COMPLETED Source: [facility] Office Visit (TEJAS) SANDY BRAVO ([id number]) 1965 F Date Time Provider Department 07/10/24 2:45 PM ANTHONY THOMAS During your visit today, we recorded the following information about you: Anthony Thomas MD 07/10/2024 4:21 PM Signed [facility] DEPARTMENT OF VASCULAR SURGERY OUTPATIENT VISIT DATE July 10, 2024 OUTPATIENT VISIT TYPE ESTABLISHED SERVICE DATE: 07/10/2024 SERVICE TIME: 4:11 PM PRIMARY CARE PHYSICIAN: Maldonado Denny MD HISTORY OF PRESENT ILLNESS: Ms. Bravo is a 59 year old female who presents today for a vascular surgery follow-up visit today. Arm swelling on the right has resolved. PAST MEDICAL HISTORY Diagnosis Date Acute kidney failure ([facility]) 01/14/2018 Anxiety Arterial steal syndrome ([facility]) 12/2018 Left AVF Calculus of ureter 06/12/2007 CKD (chronic kidney disease) stage V requiring chronic dialysis ([facility]) 03/01/2018 Dr. Pendleton, nephrology. Congestive heart failure ([facility]) Constipation Depression 09/04/2006 Encounter for screening for stenosis of carotid artery 03/27/2023 Less then 50% calcification bilaterally. ESRD on dialysis ([facility]) 05/16/2019 GERD (gastroesophageal reflux disease) Hemorrhoids History of echocardiogram 11/07/2023 EF 67%. Severe septal left ventricular hypertrophy. Grade I left ventricular diastolic dysfunction. History of echocardiogram 07/25/2019 EF 70%. Normal scan History of stress test 07/25/2019 EF 62%. No ischemia. History of stress test 07/09/2020 EF 50%. Septal hypokinesis with borderline normal systolic function. History of stress test 06/21/2023 EF 67%. No ischemia. Normal scan HTN (hypertension) 09/04/2001 Hyperlipidemia 09/04/1999 Hypertrophic cardiomyopathy ([facility]) 07/25/2019 echo in 2023 confirms 40mmhg gradient with valsalva Hypothyroid 03/30/2012 Proteinuria 06/14/2013 Renal colic 06/12/2007 Secondary hyperparathyroidism of renal origin ([facility]) 06/20/2023 Steal syndrome dialysis vascular access ([facility]) 05/17/2019 Thyroid disorder TIA (transient ischemic attack) 06/2019 Tubular adenoma of colon 11/15/2022 Type II or unspecified type diabetes mellitus without mention of complication, not stated as uncontrolled 09/04/1985 Ventral hernia with bowel obstruction 06/01/2023 PAST SURGICAL HISTORY Procedure Laterality Date APPENDECTOMY 1992 AV ANASTOMIES OPEN;BY BASILIC VEIN WINN Right 04/20/2020 transpose basilic vein fistula, R arm AV FISTULA OR GRAFT VENOUS Left 10/04/2017 AV FISTULA OR GRAFT VENOUS Left 09/20/2018 redo, failure to mature AV FISTULA OR GRAFT VENOUS Right 04/21/2021 BOWEL RESECTION HX 2006 CHOLECYSTECTOMY 1985 Cholecystectomy COLONOSCOPY SCREENING 11/15/2022 COLOSTOMY/SKIN LEVEL CECOSTOMY 2007 [id number], reversed 2007 CREATION OF AVF, PERCUTANEOUS USING MAGNETIC-GUIDED ARTERIAL AND VENOUS CATHETERS AND RADIOFREQUENCY ENERGY Right 11/14/2019 RIGHT AVF stage I EXPLORATORY LAPAROTOMY CELIOTOMY W/WO BIOPSY SPX 2006 Laparotomy, exp EXPLORATORY LAPAROTOMY, CELIOTOMY-SP 05/31/2023 lysis of adhesions, small bowel enterotomy repair. IR VENOUS FISTULAGRAM Left 01/22/2019 Left SC balloon LEFT HEART CATH,PERCUTANEOUS 03/12/2012 Medical Mx LEFT HEART CATH,PERCUTANEOUS 05/14/2018 Medical Mx PAST SURGICAL HISTORY OF Left 05/16/2019 LUE DRIL (proximal brachial to distal brachial artery bypass with RLE rGSV PAST SURGICAL HISTORY OF Left Cataract removed REDUCTION OF LARGE BREAST 1989 SALPINGECTOMY OR OOPHERECTOMY-ECTOPIC 1986 SLING OPER STRES INCONTINENCE 1998 TOTAL ABDOMINAL HYSTERECT W/WO RMVL TUBE OVARY 1990 Hysterectomy, RUSSELL SOCIAL HISTORY Social History Tobacco Use Smoking status: Former Current packs/day: 0.00 Average packs/day: 1.5 packs/day for 3.0 years (4.5 ttl pk-yrs) Types: Cigarettes Start date: 09/04/2002 Quit date: 09/04/2005 Years since quittin.8 Smokeless tobacco: Never Tobacco comments: quit march 10 Vaping Use Vaping status: Never Used Substance Use Topics Alcohol use: No Drug use: No MEDICATIONS: cloNIDine HCl (CATAPRES) 0.2 mg tablet Take 1 tablet by mouth two times a day. nitroglycerin sublingual (NITROQUICK) 0.4 mg SL tablet Dissolve 1 tablet under the tongue every 5 minutes as needed. insulin lispro (HUMALOG KWIKPEN INSULIN) 100 unit/mL Inject 8 Units subcutaneously three times a day before meals. Add 1 unit for each 50 mg/dl above 150 atorvastatin (LIPITOR) 40 mg tablet Take 1 tablet by mouth daily at bedtime. levothyroxine (SYNTHROID) 125 mcg tablet Take 1 tablet by mouth once daily. Take on empty stomach. For Thyroid lisinopril (ZESTRIL) 40 mg tablet Take 1 tablet by mouth once daily. metoprolol tartrate, short acting, (LOPRESSOR) 25 mg tablet Take 1 tablet by mouth every 12 hours. amLODIPine (NORVASC) 10 mg tablet Take 1 tablet by mouth once daily. ciprofloxacin HCl (CILOXAN) 0.3 % ophthalmic solution Use 1 Drop in the left eye four times daily. SUMAtriptan (IMITREX) 50 mg tablet Take one tablet by mouth at onset of migraine. May repeat in 2 hours if ineffective insulin detemir U-100 (LEVEMIR FLEXTOUCH U-100 INSULIN) 100 unit/mL (3 mL) injection pen Inject 48 Units subcutaneously daily at bedtime. ferric citrate 210 mg iron tab Take 1 tablet by mouth once daily. docusate sodium (COLACE) 100 mg capsule Take 1 capsule by mouth twice daily as needed for Constipation. NEPHRO-SONDRA 0.8 mg tab Take 1 tablet by mouth once daily. aspirin, enteric coated (ASPIRIN, ENTERIC COATED) 81 mg EC tablet Take 1 tablet by mouth once daily. insulin needles, DISPOSABLE, (PEN NEEDLE) 31 gauge x 5/16 Use one needle per dose four times per day. blood sugar diagnostic (BLOOD GLUCOSE TEST) test strip Test blood sugar(s) 3 times daily. Dx: Type 2 DM - Uncontrolled E11.65 Insulin: Yes Blood-Glucose Meter (BLOOD GLUCOSE MONITORING) monitoring kit 1 Each three times daily. E11.65. On insulin. ALLERGIES: ALLERGIES Allergen Reactions Codeine GI Upset Latex Hives 2005 had reaction after surgery Penicillins Swelling Chlorhexidine Rash PHYSICAL EXAM: There were no vitals taken for this visit. General: Alert and oriented Integumentary: Normal color, no rash, no lesions. HEENT: EOM, pupils equal, round and reactive. Cardiovascular: Normal S1 AND S2, no rubs, murmurs or gallops. No JVD., Pulse regular. Lungs: Normal breath sounds, no wheezes or crackles. Abdomen: Soft, non-tender, no rigidity. Diagnostic tests reviewed for today's visit: IMPRESSION: Ms. Bravo is a 59 year old female right upper extremity graft.. PLAN and RECOMMENDATIONS: Follow-up in 12 months sooner if symptoms recur SIGNATURE: Anthony Thomas MD PATIENT NAME: Sandy Bravo DATE: July 10, 2024 TIME: 4:11 PM Referring Provider: ANTHONY THOMAS [[id number]] Allergies As of Date: 07/10/2024 Noted Allergy Reaction CODEINE 12/11/2006 8 - GI Upset LATEX 03/22/2012 4 - Hives Comments: 2006 had reaction after surgery PENICILLINS 12/11/2006 7 - Swelling CHLORHEXIDINE 11/26/2018 2 - Rash Date Reviewed: 07/10/2024 Reviewed by: Phyllis Mack LPN - Fully Assessed Reason for Visit: Post Op [[id number]] Primary Visit Diagnosis:Peripheral arterial disease (HCC) [I73.9] Other Visit Diagnosis:ESRD on dialysis (HCC) [N18.6, Z99.2] Prescriptions as of 07/10/2024 - cloNIDine HCl (CATAPRES) 0.2 mg tablet Take 1 tablet by mouth two times a day. - nitroglycerin sublingual (NITROQUICK) 0.4 mg SL tablet Dissolve 1 tablet under the tongue every 5 minutes as needed. - insulin needles, DISPOSABLE, (PEN NEEDLE) 31 gauge x 5/16 Use one needle per dose four times per day. - insulin lispro (HUMALOG KWIKPEN INSULIN) 100 unit/mL Inject 8 Units subcutaneously three times a day before meals. Add 1 unit for each 50 mg/dl above 150 - atorvastatin (LIPITOR) 40 mg tablet Take 1 tablet by mouth daily at bedtime. - levothyroxine (SYNTHROID) 125 mcg tablet Take 1 tablet by mouth once daily. Take on empty stomach. For Thyroid - lisinopril (ZESTRIL) 40 mg tablet Take 1 tablet by mouth once daily. - metoprolol tartrate, short acting, (LOPRESSOR) 25 mg tablet Take 1 tablet by mouth every 12 hours. - amLODIPine (NORVASC) 10 mg tablet Take 1 tablet by mouth once daily. - ciprofloxacin HCl (CILOXAN) 0.3 % ophthalmic solution Use 1 Drop in the left eye four times daily. - SUMAtriptan (IMITREX) 50 mg tablet Take one tablet by mouth at onset of migraine. May repeat in 2 hours if ineffective - insulin detemir U-100 (LEVEMIR FLEXTOUCH U-100 INSULIN) 100 unit/mL (3 mL) injection pen Inject 48 Units subcutaneously daily at bedtime. - ferric citrate 210 mg iron tab Take 1 tablet by mouth once daily. - docusate sodium (COLACE) 100 mg capsule Take 1 capsule by mouth twice daily as needed for Constipation. - NEPHRO-SONDRA 0.8 mg tab Take 1 tablet by mouth once daily. - blood sugar diagnostic (BLOOD GLUCOSE TEST) test strip Test blood sugar(s) 3 times daily. Dx: Type 2 DM - Uncontrolled E11.65 Insulin: Yes - Blood-Glucose Meter (BLOOD GLUCOSE MONITORING) monitoring kit 1 Each three times daily. E11.65. On insulin. - aspirin, enteric coated (ASPIRIN, ENTERIC COATED) 81 mg EC tablet Take 1 tablet by mouth once daily. Problem List As Of Date 07/10/2024 Noted Resolved Calculus of ureter [N20.1] 06/12/2007 03/22/2012 Urinary tract infection, site not specified [N3*06/12/2007 03/22/2012 Renal colic [N23] 06/12/2007 03/22/2012 Controlled type 2 diabetes mellitus without com*09/04/1985 HTN (hypertension) [I10] 09/04/2001 Hyperlipidemia [E78.5] 09/04/1999 Depression [F32.A] 09/04/2006 06/12/2023 Hypothyroid [E03.9] 03/30/2012 ASCVD (arteriosclerotic cardiovascular disease)*05/10/2012 Proteinuria [R80.9] 06/14/2013 CKD (chronic kidney disease) stage 3, GFR 30-59*07/17/2013 05/02/2017 CKD (chronic kidney disease) stage 4, GFR 15-29*04/05/2017 03/02/2018 CKD (chronic kidney disease) stage V requiring *03/01/2018 08/29/2019 ESRD on dialysis (HCC) [N18.6, Z99.2] 05/16/2019 VT (ventricular tachycardia) [I47.20] 05/17/2019 Steal syndrome dialysis vascular access (HCC) [*05/17/2019 02/23/2023 ESRD (end stage renal disease) (HCC) [N18.6] 04/21/2021 10/27/2023 Ventral hernia with obstruction, without gangre*12/09/2021 06/29/2023 Tubular adenoma of colon [D12.6] 11/15/2022 Hyperkalemia [E87.5] 06/20/2023 09/14/2023 Secondary hyperparathyroidism of renal origin (*06/20/2023 Abnormal EKG [R94.31] 06/20/2023 09/14/2023 Hypertrophic cardiomyopathy (HCC) [I42.2] 11/08/2023 Congestive heart failure (HCC) [I50.9] History of echocardiogram [Z92.89] 11/07/2023 History of stress test [Z92.89] 06/21/2023 Encounter for screening for stenosis of carotid*03/27/2023 Arteriovenous fistula, acquired (HCC) [I77.0] 06/13/2024 Peripheral arterial disease (HCC) [I73.9] 07/10/2024 Encounter Status:Closed by ANTHONY THOMAS on 07/10/24 US A/V FISTULA GRAFT UNL VAS LAB Observed: 07/10/2024 1:46 PM Status: F Source[facility] Ext[facility]ity Arterial Duplex Unilateral - Right Date of service/time: 07/10/2024 1:46:53 PM Name: MRS. SANDY BRAVO Date of : 1965 Age: 59 years Gender: F Clinical Indication Right brachial artery to brachial vein loop graft with right brachial vein to axillary vein bypass graft outflow 04/21/2021, right subclavian vein and innominate vein stenting 05/16/2024. TECHNIQUE -------- An arterial duplex ultrasound examination was performed, including grayscale imaging and color Doppler and spectral Doppler examination of the below mentioned arteries. FINDINGS -------- RIGHT SIDE Brachial artery proximal: PSV: 331 cm/s. EDV: 127 cm/s. Monophasic, low resistive waveform. VESSEL/GRAFT brachial-brachial loop graft arterial anastomotic site: PSV: 619 cm/s. EDV: 301 cm/s. Monophasic, low resistive waveform. brachial-brachial loop graft proximal: PSV: 258 cm/s. EDV: 116 cm/s. Monophasic, low resistive waveform. brachial-brachial loop graft mid: PSV: 196 cm/s. EDV: 90 cm/s. Monophasic, low resistive waveform. brachial-brachial loop graft distal: PSV: 241 cm/s. EDV: 92 cm/s. Monophasic, low resistive waveform. brachial-brachial loop graft venous anastomotic site: PSV: 324 cm/s. EDV: 134 cm/s. Monophasic, low resistive waveform. brachial vein - axillary vein bypass graft proximal anastomotic site: PSV: 320 cm/s. EDV: 110 cm/s. Monophasic, low resistive waveform. brachial vein - axillary vein bypass graft proximal: PSV: 211 cm/s. EDV: 70 cm/s. Monophasic, low resistive waveform. brachial vein - axillary vein bypass graft mid: PSV: 158 cm/s. EDV: 63 cm/s. Monophasic, low resistive waveform. brachial vein - axillary vein bypass graft distal: PSV: 143 cm/s. EDV: 55 cm/s. Monophasic, low resistive waveform. brachial vein - axillary vein bypass graft distal anastomotic site: PSV: 223 cm/s. EDV: 82 cm/s. Monophasic, low resistive waveform. Subclavian vein proximal: with stent. PSV: 211 cm/s. EDV: 86 cm/s. Monophasic, low resistive waveform. Volume flow Proximal graft: 1572 ml/min Mid graft: 1082 ml/min Distal graft: 1209 ml/min Volume flow estimate for arteriovenous graft is: 1288 ml/min Diameter/Depth Fistula arterial anastomosis: Diameter 0.63 cm. Depth 1.72 cm. Fistula proximal: Diameter 0.74 cm. Depth 0.64 cm. Fistula mid: Diameter 0.63 cm. Depth 0.25 cm. Fistula distal: Diameter 0.66 cm. Depth 0.47 cm. IMPRESSION Compared to prior study of 05/08/2024, no significant change. RIGHT SIDE Brachial artery proximal: patent . Brachial artery to brachial vein loop graft : patent . Venous anastomosis communicates with brachial v - axillary vein bypass. Arteriovenous graft visualized in segments due to bandages from same day dialysis access. Brachial vein to axillary vein bypass graft : patent . Venous anastomosis connects at mid subclavian vein. Subclavian vein proximal to mid: patent . Stent noted at proximal. Innominate vein : unable to visualize . Brachial artery to brachial vein loop graft has adequate flow for dialysis. Technologist: Joyce Toussaint RVT Ordering physician: ANTHONY THOMAS Interpreting physician: Jaylyn Fortune MD, RPVI Final CC [employer] Image : [id number] See Link below for Image PROGRESS Observed: 07/02/2024 9:59 AM Status: COMPLETED Source: [facility] HNO ID: [id number] Author: ASUNCION ROSSI RN Service: ? Author Type: Registered Nurse Type: Progress Notes Filed: 07/02/2024 10:03 Note Text: CDM Telephonic Outreach Provider Action/FYI Patient states she has a cold with a dry cough. Denies needing virtualist or PCP appointment at this time. Patient denies any questions, concerns, or needs. Reviewed upcoming appointments. Contacted for: Routine Telephonic Outreach Contact made with patient: Yes Patient identified by name and date of . Discussed care with patient Are you experiencing any new or worsening symptoms you need to talk about today? No Disease Specific Do you check your blood pressure at home? No Do you have new or worsening shortness of breath with activity? No Do you feel like you are dehydrated for any reason, including not being able to eat or drink normally, or having less urine/much darker urine than normal for you? No Do you check your daily weight at home? No Based on automatic lathe tender, the following disposition is advised: No symptoms or symptoms present, not severe. Routed to: No Action Needed JEANNETTE Education Provided this Outreach: No Asuncion oRssi RN July 02, 2024 10:01 AM CNPTOUTREACH Observed: 07/02/2024 12:00 AM Status: COMPLETED Source: [facility] Patient Outreach ([facility]) SANDY BRAVO ([id number]) 1965 F Date Time Provider Department 07/02/24 ASUNCION ROSSI During your visit today, we recorded the following information about you: Asuncion Rossi RN 07/02/2024 10:03 AM Signed CDM Telephonic Outreach Provider Action/FYI Patient states she has a cold with a dry cough. Denies needing virtualist or PCP appointment at this time. Patient denies any questions, concerns, or needs. Reviewed upcoming appointments. Contacted for: Routine Telephonic Outreach Contact made with patient: Yes Patient identified by name and date of . Discussed care with patient Are you experiencing any new or worsening symptoms you need to talk about today? No Disease Specific Do you check your blood pressure at home? No Do you have new or worsening shortness of breath with activity? No Do you feel like you are dehydrated for any reason, including not being able to eat or drink normally, or having less urine/much darker urine than normal for you? No Do you check your daily weight at home? No Based on automatic lathe tender, the following disposition is advised: No symptoms or symptoms present, not severe. Routed to: No Action Needed JEANNETTE Education Provided this Outreach: No Asuncion Rossi RN July 02, 2024 10:01 AM Allergies As of Date: 07/02/2024 Noted Allergy Reaction CODEINE 12/11/2006 8 - GI Upset LATEX 03/22/2012 4 - Hives Comments: 2006 had reaction after surgery PENICILLINS 12/11/2006 7 - Swelling CHLORHEXIDINE 11/26/2018 2 - Rash Date Reviewed: 06/13/2024 Reviewed by: Edie Samayoa LPN - Fully Assessed Reason for Visit: CDM [Other] Cmt: Community Monitoring Outreach Call Prescriptions as of 07/02/2024 - cloNIDine HCl (CATAPRES) 0.2 mg tablet Take 1 tablet by mouth two times a day. - nitroglycerin sublingual (NITROQUICK) 0.4 mg SL tablet Dissolve 1 tablet under the tongue every 5 minutes as needed. - insulin needles, DISPOSABLE, (PEN NEEDLE) 31 gauge x 5/16 Use one needle per dose four times per day. - insulin lispro (HUMALOG KWIKPEN INSULIN) 100 unit/mL Inject 8 Units subcutaneously three times a day before meals. Add 1 unit for each 50 mg/dl above 150 - atorvastatin (LIPITOR) 40 mg tablet Take 1 tablet by mouth daily at bedtime. - levothyroxine (SYNTHROID) 125 mcg tablet Take 1 tablet by mouth once daily. Take on empty stomach. For Thyroid - lisinopril (ZESTRIL) 40 mg tablet Take 1 tablet by mouth once daily. - metoprolol tartrate, short acting, (LOPRESSOR) 25 mg tablet Take 1 tablet by mouth every 12 hours. - amLODIPine (NORVASC) 10 mg tablet Take 1 tablet by mouth once daily. - ciprofloxacin HCl (CILOXAN) 0.3 % ophthalmic solution Use 1 Drop in the left eye four times daily. - SUMAtriptan (IMITREX) 50 mg tablet Take one tablet by mouth at onset of migraine. May repeat in 2 hours if ineffective - insulin detemir U-100 (LEVEMIR FLEXTOUCH U-100 INSULIN) 100 unit/mL (3 mL) injection pen Inject 48 Units subcutaneously daily at bedtime. - ferric citrate 210 mg iron tab Take 1 tablet by mouth once daily. - docusate sodium (COLACE) 100 mg capsule Take 1 capsule by mouth twice daily as needed for Constipation. - NEPHRO-SONDRA 0.8 mg tab Take 1 tablet by mouth once daily. - blood sugar diagnostic (BLOOD GLUCOSE TEST) test strip Test blood sugar(s) 3 times daily. Dx: Type 2 DM - Uncontrolled E11.65 Insulin: Yes - Blood-Glucose Meter (BLOOD GLUCOSE MONITORING) monitoring kit 1 Each three times daily. E11.65. On insulin. - aspirin, enteric coated (ASPIRIN, ENTERIC COATED) 81 mg EC tablet Take 1 tablet by mouth once daily. Problem List As Of Date 07/02/2024 Noted Resolved Calculus of ureter [N20.1] 06/12/2007 03/22/2012 Urinary tract infection, site not specified [N3*06/12/2007 03/22/2012 Renal colic [N23] 06/12/2007 03/22/2012 Controlled type 2 diabetes mellitus without com*09/04/1985 HTN (hypertension) [I10] 09/04/2001 Hyperlipidemia [E78.5] 09/04/1999 Depression [F32.A] 09/04/2006 06/12/2023 Hypothyroid [E03.9] 03/30/2012 ASCVD (arteriosclerotic cardiovascular disease)*05/10/2012 Proteinuria [R80.9] 06/14/2013 CKD (chronic kidney disease) stage 3, GFR 30-59*07/17/2013 05/02/2017 CKD (chronic kidney disease) stage 4, GFR 15-29*04/05/2017 03/02/2018 CKD (chronic kidney disease) stage V requiring *03/01/2018 08/29/2019 ESRD on dialysis (HCC) [N18.6, Z99.2] 05/16/2019 VT (ventricular tachycardia) [I47.20] 05/17/2019 Steal syndrome dialysis vascular access (HCC) [*05/17/2019 02/23/2023 ESRD (end stage renal disease) (HCC) [N18.6] 04/21/2021 10/27/2023 Ventral hernia with obstruction, without gangre*12/09/2021 06/29/2023 Tubular adenoma of colon [D12.6] 11/15/2022 Hyperkalemia [E87.5] 06/20/2023 09/14/2023 Secondary hyperparathyroidism of renal origin (*06/20/2023 Abnormal EKG [R94.31] 06/20/2023 09/14/2023 Hypertrophic cardiomyopathy (HCC) [I42.2] 11/08/2023 Congestive heart failure (HCC) [I50.9] History of echocardiogram [Z92.89] 11/07/2023 History of stress test [Z92.89] 06/21/2023 Encounter for screening for stenosis of carotid*03/27/2023 Arteriovenous fistula, acquired (HCC) [I77.0] 06/13/2024 Encounter Status:Closed by ASUNCION ROSSI on 07/02/24 PROGRESS Observed: 06/25/2024 2:45 PM Status: COMPLETED Source: [facility] ID: [id number] Author: ASUNCION ROSSI, RN Service: ? Author Type: Registered Nurse Type: Progress Notes Filed: 06/25/2024 14:47 Note Text: CDM Telephonic Outreach Provider Action/FYI Contacted for: Routine Telephonic Outreach Contact made with patient: No, unable to leave message. Asuncion Rossi RN June 25, 2024 2:46 PM CNPTOUTREACH Observed: 06/25/2024 12:00 AM Status: COMPLETED Source: [facility] SANDY BRAVO ([id number]) 1965 F Date Time Provider Department 06/25/24 [place]UNCION ROSSI [facility] [place] your visit today, we recorded the following information about you: Asuncion Rossi RN 06/25/2024 2:47 PM Signed CDM Telephonic Outreach Provider Action/FYI Contacted for: Routine Telephonic Outreach Contact made with patient: No, unable to leave message. Asuncion Rossi RN June 25, 2024 2:46 PM Allergies As of Date: 06/25/2024 Noted Allergy Reaction CODEINE 12/11/2006 8 - GI Upset LATEX 03/22/2012 4 - Hives Comments: 2006 had reaction after surgery PENICILLINS 12/11/2006 7 - Swelling CHLORHEXIDINE 11/26/2018 2 - Rash Date Reviewed: 06/13/2024 Reviewed by: Edie Samayoa LPN - Fully Assessed Reason for Visit: CDM [Other] Cmt: Community Monitoring Outreach Call Prescriptions as of 06/28/2024 - cloNIDine HCl (CATAPRES) 0.2 mg tablet Take 1 tablet by mouth two times a day. - nitroglycerin sublingual (NITROQUICK) 0.4 mg SL tablet Dissolve 1 tablet under the tongue every 5 minutes as needed. - insulin needles, DISPOSABLE, (PEN NEEDLE) 31 gauge x 5/16 Use one needle per dose four times per day. - insulin lispro (HUMALOG KWIKPEN INSULIN) 100 unit/mL Inject 8 Units subcutaneously three times a day before meals. Add 1 unit for each 50 mg/dl above 150 - atorvastatin (LIPITOR) 40 mg tablet Take 1 tablet by mouth daily at bedtime. - levothyroxine (SYNTHROID) 125 mcg tablet Take 1 tablet by mouth once daily. Take on empty stomach. For Thyroid - lisinopril (ZESTRIL) 40 mg tablet Take 1 tablet by mouth once daily. - metoprolol tartrate, short acting, (LOPRESSOR) 25 mg tablet Take 1 tablet by mouth every 12 hours. - amLODIPine (NORVASC) 10 mg tablet Take 1 tablet by mouth once daily. - ciprofloxacin HCl (CILOXAN) 0.3 % ophthalmic solution Use 1 Drop in the left eye four times daily. - SUMAtriptan (IMITREX) 50 mg tablet Take one tablet by mouth at onset of migraine. May repeat in 2 hours if ineffective - insulin detemir U-100 (LEVEMIR FLEXTOUCH U-100 INSULIN) 100 unit/mL (3 mL) injection pen Inject 48 Units subcutaneously daily at bedtime. - ferric citrate 210 mg iron tab Take 1 tablet by mouth once daily. - docusate sodium (COLACE) 100 mg capsule Take 1 capsule by mouth twice daily as needed for Constipation. - NEPHRO-SONDRA 0.8 mg tab Take 1 tablet by mouth once daily. - blood sugar diagnostic (BLOOD GLUCOSE TEST) test strip Test blood sugar(s) 3 times daily. Dx: Type 2 DM - Uncontrolled E11.65 Insulin: Yes - Blood-Glucose Meter (BLOOD GLUCOSE MONITORING) monitoring kit 1 Each three times daily. E11.65. On insulin. - aspirin, enteric coated (ASPIRIN, ENTERIC COATED) 81 mg EC tablet Take 1 tablet by mouth once daily. Problem List As Of Date 06/25/2024 Noted Resolved Calculus of ureter [N20.1] 06/12/2007 03/22/2012 Urinary tract infection, site not specified [N3*06/12/2007 03/22/2012 Renal colic [N23] 06/12/2007 03/22/2012 Controlled type 2 diabetes mellitus without com*09/04/1985 HTN (hypertension) [I10] 09/04/2001 Hyperlipidemia [E78.5] 09/04/1999 Depression [F32.A] 09/04/2006 06/12/2023 Hypothyroid [E03.9] 03/30/2012 ASCVD (arteriosclerotic cardiovascular disease)*05/10/2012 Proteinuria [R80.9] 06/14/2013 CKD (chronic kidney disease) stage 3, GFR 30-59*07/17/2013 05/02/2017 CKD (chronic kidney disease) stage 4, GFR 15-29*04/05/2017 03/02/2018 CKD (chronic kidney disease) stage V requiring *03/01/2018 08/29/2019 ESRD on dialysis (HCC) [N18.6, Z99.2] 05/16/2019 VT (ventricular tachycardia) [I47.20] 05/17/2019 Steal syndrome dialysis vascular access (HCC) [*05/17/2019 02/23/2023 ESRD (end stage renal disease) (HCC) [N18.6] 04/21/2021 10/27/2023 Ventral hernia with obstruction, without gangre*12/09/2021 06/29/2023 Tubular adenoma of colon [D12.6] 11/15/2022 Hyperkalemia [E87.5] 06/20/2023 09/14/2023 Secondary hyperparathyroidism of renal origin (*06/20/2023 Abnormal EKG [R94.31] 06/20/2023 09/14/2023 Hypertrophic cardiomyopathy (HCC) [I42.2] 11/08/2023 Congestive heart failure (HCC) [I50.9] History of echocardiogram [Z92.89] 11/07/2023 History of stress test [Z92.89] 06/21/2023 Encounter for screening for stenosis of carotid*03/27/2023 Arteriovenous fistula, acquired (HCC) [I77.0] 06/13/2024 Encounter Status:Closed by ASUNCION ROSSI on 06/25/24 PROGRESS Observed: 06/13/2024 3:31 PM Status: COMPLETED Source: [facility] ID: [id number] Author: MALDONADO DENNY MD Service: ? Author Type: Physician Type: Progress Notes Filed: 06/13/2024 16:25 Note Text: This note was created using [employer]aked[employer]. Subjective Sandy Bravo is a 59 year old female. She missed dialysis yesterday due to migraines. She took Imitrex which helped. She had residual lightheadedness today. Her hypertension was difficult and labile. She typically held her blood pressure medications for the morning of dialysis. She had a cough for one month, but was scheduled for a chest xray at [facility] where she is being evaluated for transplant. Review of Systems Constitutional: Negative for fatigue and fever. HENT: Negative for congestion and sore throat. Respiratory: Negative for chest tightness, shortness of breath and wheezing. Cardiovascular: Negative for chest pain, palpitations and leg swelling. Gastrointestinal: Negative for diarrhea, nausea and vomiting. Neurological: Negative for weakness and numbness. ACTIVE PROBLEM LIST Controlled Type 2 Diabetes Mellitus Without Complication, With Long-Term Current Use of Insulin ([facility]) Htn (Hypertension) Hyperlipidemia Hypothyroid Ascvd (Arteriosclerotic Cardiovascular Disease) Proteinuria Esrd On Dialysis ([facility]) VT (ventricular tachycardia) Tubular Adenoma of Colon Secondary Hyperparathyroidism of Renal Origin ([facility]) Hypertrophic Cardiomyopathy ([facility]) Congestive Heart Failure ([facility]) History of Echocardiogram History of Stress Test Encounter for Screening for Stenosis of Carotid Artery Arteriovenous Fistula, Acquired ([facility]) Current Outpatient Medications Medication Sig nitroglycerin sublingual (NITROQUICK) 0.4 mg SL tablet Dissolve 1 tablet under the tongue every 5 minutes as needed. insulin needles, DISPOSABLE, (PEN NEEDLE) 31 gauge x 5/16 Use one needle per dose four times per day. insulin lispro (HUMALOG KWIKPEN INSULIN) 100 unit/mL Inject 8 Units subcutaneously three times a day before meals. Add 1 unit for each 50 mg/dl above 150 atorvastatin (LIPITOR) 40 mg tablet Take 1 tablet by mouth daily at bedtime. levothyroxine (SYNTHROID) 125 mcg tablet Take 1 tablet by mouth once daily. Take on empty stomach. For Thyroid lisinopril (ZESTRIL) 40 mg tablet Take 1 tablet by mouth once daily. metoprolol tartrate, short acting, (LOPRESSOR) 25 mg tablet Take 1 tablet by mouth every 12 hours. amLODIPine (NORVASC) 10 mg tablet Take 1 tablet by mouth once daily. ciprofloxacin HCl (CILOXAN) 0.3 % ophthalmic solution Use 1 Drop in the left eye four times daily. cloNIDine HCl (CATAPRES) 0.3 mg tablet Take 1 tablet by mouth daily at bedtime. SUMAtriptan (IMITREX) 50 mg tablet Take one tablet by mouth at onset of migraine. May repeat in 2 hours if ineffective insulin detemir U-100 (LEVEMIR FLEXTOUCH U-100 INSULIN) 100 unit/mL (3 mL) injection pen Inject 48 Units subcutaneously daily at bedtime. ferric citrate 210 mg iron tab Take 1 tablet by mouth once daily. docusate sodium (COLACE) 100 mg capsule Take 1 capsule by mouth twice daily as needed for Constipation. NEPHRO-SONDRA 0.8 mg tab Take 1 tablet by mouth once daily. blood sugar diagnostic (BLOOD GLUCOSE TEST) test strip Test blood sugar(s) 3 times daily. Dx: Type 2 DM - Uncontrolled E11.65 Insulin: Yes Blood-Glucose Meter (BLOOD GLUCOSE MONITORING) monitoring kit 1 Each three times daily. E11.65. On insulin. aspirin, enteric coated (ASPIRIN, ENTERIC COATED) 81 mg EC tablet Take 1 tablet by mouth once daily. No current facility-administered medications for this visit. Objective Temp 36.2 ?C (97.1 ?F) (Temporal) Ht 159 cm (5' 2.6) Wt 67.6 kg (149 lb 0.5 oz) BMI 26.74 kg/m? Orthostatic Vitals: Supine: BP 181/65 Pulse 84 Sitting: BP 166/62 Pulse 83 Standing: BP 178/69 Pulse 86 Physical Exam Constitutional: General: She is not in acute distress. Appearance: She is not ill-appearing. HENT: Head: Normocephalic. Nose: No congestion or rhinorrhea. Eyes: Extraocular Movements: Extraocular movements intact. Cardiovascular: Rate and Rhythm: Normal rate and regular rhythm. Heart sounds: S1 normal and S2 normal. Murmur heard. Systolic murmur is present with a grade of 1/6. Pulmonary: Effort: No respiratory distress. Breath sounds: No wheezing, rhonchi or rales. Musculoskeletal: Right lower le+ Pitting Edema present. Left lower le+ Pitting Edema present. Comments: Right arm fistula with bruit. No signs of infection or inflammation. Neurological: General: No focal deficit present. Mental Status: She is alert. Gait: Gait normal. Assessment and Plan 1. Medicare annual wellness visit, subsequent - ICD9: V70.0, ICD10: Z00.00 (primary diagnosis) - See wellness note. 2. Encounter for immunization - ICD9: V03.89, ICD10: Z23 - PFI[employer] COVID-19 VACCINE AGE 12+ YR (COMIRNATY) 3. Arteriovenous fistula, acquired (HCC) - ICD9: 447.0, ICD10: I77.0 S/p stenting. 4. Screening for depression - ICD9: V79.0, ICD10: Z13.31 - DEPRESSION SCREENING 5. Encounter for screening examination for other mental health and behavioral disorders - ICD9: V79.8, ICD10: Z13.39 - ANXIETY SCREENING 6. Controlled type 2 diabetes mellitus without complication, with long-term current use of insulin (HCC) - ICD9: 250.00, V58.67, ICD10: E11.9, Z79.4 - Controlled - Continue current medications 7. Primary hypertension - ICD9: 401.9, ICD10: I10 - Worsening control - Continue current medications - CLONIDINE HCL 0.2 MG TABLET. Dose increased. Take one(1) tablet two(2) times daily. Hold for dialysis AM as usual. 8. Mixed hyperlipidemia - ICD9: 272.2, ICD10: E78.2 - Controlled - Continue current medications 9. Congestive heart failure, unspecified HF chronicity, unspecified heart failure type (HCC) - ICD9: 428.0, ICD10: I50.9 Compensated. - Continue current medications 10. ESRD on dialysis (HCC) - ICD9: 585.6, V45.11, ICD10: N18.6, Z99.2 - Ongoing. 11. Secondary hyperparathyroidism of renal origin (HCC) - ICD9: 588.81, ICD10: N25.81 - Monitored. Maldonado Denny MD PROGRESS Observed: 06/13/2024 3:16 PM Status: COMPLETED Source: [facility] ID: [id number] Author: MALDONADO DENNY MD Service: ? Author Type: Physician Type: Progress Notes Filed: 06/13/2024 16:25 Note Text: Sandy Bravo is a 59 year old female here for a Medicare wellness visit. Medicare Health Risk Assessment General Health Good Exercise: Minutes/Day 10 min Exercise: Days/Week 3 days Alcohol: Daily Use Never Alcohol: Drinks/Day Patient does not drink Alcohol: 6 or more drinks Never Feel off balance Yes Concerns: Teeth/Dentures No Concerns: Sexual function No Troubled by feelings None of the above Frequency: Eating healthy diet Several days ADLs requiring help Grocery shopping; Cooking; Handling finances; Taking medications; Driving Safety precautions in home/vehicle Yes Smoke, vape, chews tobacco No Difficulty hearing Yes, I wear a hearing aid Difficulty seeing Yes Current Providers Specialists: I have reviewed specialist-related care of the patient in the medical record. Current care team: Patient Care Team: Maldonado Denny MD as PCP - General (Internal Medicine) Dr. Miladys Shelton, [place] agronomist. Dr. Anthony Thomas, vascular surgery. [facility], Gynecology. Byron Day MD as Referring (Ophthalmology) Dr. Dave Lake, Cardiology. Dr. Héctor Cruz, Ophthalmology. Helen Cuellar APRN, [facility], Gynecology. MICHELLEITA for dialysis. Medical/Family history review Reviewed and updated problem list, medical/surgical/family/social history, medications, and allergies. Opioid use review Opioid Medications (last 90 days) No data to display Anxiety/Depression screening Recommendation: no further intervention at this time Cognitive screening Cognitive screening reviewed and No further action needed (score 3-5). Functional Observation Was the patient's Timed Up AND Go test unsteady or >= 12 seconds? No Advance Care Planning Patient did not wish or was not able to name a surrogate decision maker or provide an advance care plan Measurements Temp 36.2 ?C (97.1 ?F) (Temporal) Ht 159 cm (5' 2.6) Wt 67.6 kg (149 lb 0.5 oz) BMI 26.74 kg/m? Vision Screening: Follows with optometry/ophthalmology Assessment/Plan Medicare annual wellness visit, subsequent (Z00.00) - Counseled on healthy diet and regular exercise - Fall avoidance information provided - Personalized prevention plan provided - Vaccine recommendations reviewed. CNOV Observed: 06/13/2024 3:00 PM Status: COMPLETED Source: [facility] Office Visit (INTMWS) SANDY BRAVO ([id number]) 1965 F Date Time Provider Department 06/13/24 3:00 PM MALDONADO DENNY INTMWS During your visit today, we recorded the following information about you: Temperature Weight Height 97.1 degrees 67.6 kg 1.59 m Maldonado Denny MD 06/13/2024 4:25 PM Signed Sandy Bravo is a 59 year old female here for a Medicare wellness visit. Medicare Health Risk Assessment General Health Good Exercise: Minutes/Day 10 min Exercise: Days/Week 3 days Alcohol: Daily Use Never Alcohol: Drinks/Day Patient does not drink Alcohol: 6 or more drinks Never Feel off balance Yes Concerns: Teeth/Dentures No Concerns: Sexual function No Troubled by feelings None of the above Frequency: Eating healthy diet Several days ADLs requiring help Grocery shopping; Cooking; Handling finances; Taking medications; Driving Safety precautions in home/vehicle Yes Smoke, vape, chews tobacco No Difficulty hearing Yes, I wear a hearing aid Difficulty seeing Yes Current Providers Specialists: I have reviewed specialist-related care of the patient in the medical record. Current care team: Patient Care Team: Maldonado Denny MD as PCP - General (Internal Medicine) Dr. Miladys Shelton, [place] agronomist. Dr. Anthony Thomas, vascular surgery. [facility], Gynecology. Byron Day MD as Referring (Ophthalmology) Dr. Dave Lake, Cardiology. Dr. Héctor Cruz, Ophthalmology. Helen Cuellar APRN, CN, Gynecology. MICHELLEITA for dialysis. Medical/Family history review Reviewed and updated problem list, medical/surgical/family/social history, medications, and allergies. Opioid use review Opioid Medications (last 90 days) No data to display Anxiety/Depression screening Recommendation: no further intervention at this time Cognitive screening Cognitive screening reviewed and No further action needed (score 3-5). Functional Observation Was the patient's Timed Up AND Go test unsteady or >= 12 seconds? No Advance Care Planning Patient did not wish or was not able to name a surrogate decision maker or provide an advance care plan Measurements Temp 36.2 ?C (97.1 ?F) (Temporal) Ht 159 cm (5' 2.6) Wt 67.6 kg (149 lb 0.5 oz) BMI 26.74 kg/m? Vision Screening: Follows with optometry/ophthalmology Assessment/Plan Medicare annual wellness visit, subsequent (Z00.00) - Counseled on healthy diet and regular exercise - Fall avoidance information provided - Personalized prevention plan provided - Vaccine recommendations reviewed. Maldonado Denny MD 06/13/2024 4:25 PM Signed This note was created using NakedRoomriter. Subjective Sandy Bravo is a 59 year old female. She missed dialysis yesterday due to migraines. She took Imitrex which helped. She had residual lightheadedness today. Her hypertension was difficult and labile. She typically held her blood pressure medications for the morning of dialysis. She had a cough for one month, but was scheduled for a chest xray at [facility] where she is being evaluated for transplant. Review of Systems Constitutional: Negative for fatigue and fever. HENT: Negative for congestion and sore throat. Respiratory: Negative for chest tightness, shortness of breath and wheezing. Cardiovascular: Negative for chest pain, palpitations and leg swelling. Gastrointestinal: Negative for diarrhea, nausea and vomiting. Neurological: Negative for weakness and numbness. ACTIVE PROBLEM LIST Controlled Type 2 Diabetes Mellitus Without Complication, With Long-Term Current Use of Insulin (Hcc) Htn (Hypertension) Hyperlipidemia Hypothyroid Ascvd (Arteriosclerotic Cardiovascular Disease) Proteinuria Esrd On Dialysis (Hcc) VT (ventricular tachycardia) Tubular Adenoma of Colon Secondary Hyperparathyroidism of Renal Origin (Hcc) Hypertrophic Cardiomyopathy (Hcc) Congestive Heart Failure (Hcc) History of Echocardiogram History of Stress Test Encounter for Screening for Stenosis of Carotid Artery Arteriovenous Fistula, Acquired (Hcc) Current Outpatient Medications Medication Sig nitroglycerin sublingual (NITROQUICK) 0.4 mg SL tablet Dissolve 1 tablet under the tongue every 5 minutes as needed. insulin needles, DISPOSABLE, (PEN NEEDLE) 31 gauge x 5/16 Use one needle per dose four times per day. insulin lispro (HUMALOG KWIKPEN INSULIN) 100 unit/mL Inject 8 Units subcutaneously three times a day before meals. Add 1 unit for each 50 mg/dl above 150 atorvastatin (LIPITOR) 40 mg tablet Take 1 tablet by mouth daily at bedtime. levothyroxine (SYNTHROID) 125 mcg tablet Take 1 tablet by mouth once daily. Take on empty stomach. For Thyroid lisinopril (ZESTRIL) 40 mg tablet Take 1 tablet by mouth once daily. metoprolol tartrate, short acting, (LOPRESSOR) 25 mg tablet Take 1 tablet by mouth every 12 hours. amLODIPine (NORVASC) 10 mg tablet Take 1 tablet by mouth once daily. ciprofloxacin HCl (CILOXAN) 0.3 % ophthalmic solution Use 1 Drop in the left eye four times daily. cloNIDine HCl (CATAPRES) 0.3 mg tablet Take 1 tablet by mouth daily at bedtime. SUMAtriptan (IMITREX) 50 mg tablet Take one tablet by mouth at onset of migraine. May repeat in 2 hours if ineffective insulin detemir U-100 (LEVEMIR FLEXTOUCH U-100 INSULIN) 100 unit/mL (3 mL) injection pen Inject 48 Units subcutaneously daily at bedtime. ferric citrate 210 mg iron tab Take 1 tablet by mouth once daily. docusate sodium (COLACE) 100 mg capsule Take 1 capsule by mouth twice daily as needed for Constipation. NEPHRO-SONRDA 0.8 mg tab Take 1 tablet by mouth once daily. blood sugar diagnostic (BLOOD GLUCOSE TEST) test strip Test blood sugar(s) 3 times daily. Dx: Type 2 DM - Uncontrolled E11.65 Insulin: Yes Blood-Glucose Meter (BLOOD GLUCOSE MONITORING) monitoring kit 1 Each three times daily. E11.65. On insulin. aspirin, enteric coated (ASPIRIN, ENTERIC COATED) 81 mg EC tablet Take 1 tablet by mouth once daily. No current facility-administered medications for this visit. Objective Temp 36.2 ?C (97.1 ?F) (Temporal) Ht 159 cm (5' 2.6) Wt 67.6 kg (149 lb 0.5 oz) BMI 26.74 kg/m? Orthostatic Vitals: Supine: BP 181/65 Pulse 84 Sitting: BP 166/62 Pulse 83 Standing: BP 178/69 Pulse 86 Physical Exam Constitutional: General: She is not in acute distress. Appearance: She is not ill-appearing. HENT: Head: Normocephalic. Nose: No congestion or rhinorrhea. Eyes: Extraocular Movements: Extraocular movements intact. Cardiovascular: Rate and Rhythm: Normal rate and regular rhythm. Heart sounds: S1 normal and S2 normal. Murmur heard. Systolic murmur is present with a grade of 1/6. Pulmonary: Effort: No respiratory distress. Breath sounds: No wheezing, rhonchi or rales. Musculoskeletal: Right lower le+ Pitting Edema present. Left lower le+ Pitting Edema present. Comments: Right arm fistula with bruit. No signs of infection or inflammation. Neurological: General: No focal deficit present. Mental Status: She is alert. Gait: Gait normal. Assessment and Plan 1. Medicare annual wellness visit, subsequent - ICD9: V70.0, ICD10: Z00.00 (primary diagnosis) - See wellness note. 2. Encounter for immunization - ICD9: V03.89, ICD10: Z23 - [employer] COVID-19 VACCINE AGE 12+ YR (COMIRNATY) 3. Arteriovenous fistula, acquired (HCC) - ICD9: 447.0, ICD10: I77.0 S/p stenting. 4. Screening for depression - ICD9: V79.0, ICD10: Z13.31 - DEPRESSION SCREENING 5. Encounter for screening examination for other mental health and behavioral disorders - ICD9: V79.8, ICD10: Z13.39 - ANXIETY SCREENING 6. Controlled type 2 diabetes mellitus without complication, with long-term current use of insulin (HCC) - ICD9: 250.00, V58.67, ICD10: E11.9, Z79.4 - Controlled - Continue current medications 7. Primary hypertension - ICD9: 401.9, ICD10: I10 - Worsening control - Continue current medications - CLONIDINE HCL 0.2 MG TABLET. Dose increased. Take one(1) tablet two(2) times daily. Hold for dialysis AM as usual. 8. Mixed hyperlipidemia - ICD9: 272.2, ICD10: E78.2 - Controlled - Continue current medications 9. Congestive heart failure, unspecified HF chronicity, unspecified heart failure type (HCC) - ICD9: 428.0, ICD10: I50.9 Compensated. - Continue current medications 10. ESRD on dialysis (HCC) - ICD9: 585.6, V45.11, ICD10: N18.6, Z99.2 - Ongoing. 11. Secondary hyperparathyroidism of renal origin (HCC) - ICD9: 588.81, ICD10: N25.81 - Monitored. MD Eduin Jacobo Victor H, MD 06/13/2024 3:42 PM Addendum Screening schedule The following prevention plan is recommended: Depression Screening Never done Anxiety Screening Never done Hepatitis A Vaccine(1 of 2 - Risk 2-dose series) Never done Hepatitis B Vaccine(1 of 3 - Risk Dialysis 4-dose series) Never done BP Controlled (<130/80) due on 08/14/2019 Shingrix Vaccine(2 of 2) due on 07/09/2020 DTaP,Tdap,Td Vaccine(2 - Td or Tdap) due on 11/02/2022 Mammogram Screening due on 07/05/2023 RSV Vaccine(1 - Risk 60-74 years 1-dose series) Never done Covid-19 Vaccine( - season) due on 05/05/2024 Dilated Retinal Exam due on 06/27/2024 Cervical Cancer Screening due on 11/06/2024 WHAT YOU CAN DO TO PREVENT FALLS Many falls can be prevented. By making some changes, you can lower your chances of falling. Four things YOU can do to prevent falls for you* and your caregiver 1. Begin a regular exercise program Exercise is one of the most important ways to lower your chances of falling. It makes you stronger and helps you feel better. Exercises that improve balance and coordination (like Eduardo Chi) are the most helpful. Lack of exercise leads to weakness and increases your chances of falling. Ask your doctor or health care provider about the best type of exercise program for you. 2. Have your health care provider review your medicines Have your doctor or pharmacist review all the medicines you take, even epxx-jxo-dqawryh medicines. As you get older, the way medicines work in your body can change. Some medicines, or combinations of medicines, can make you sleepy or dizzy and can cause you to fall. 3. Have your vision checked Have your eyes checked by an eye doctor at least once a year. You may be wearing the wrong glasses or have a condition like glaucoma or cataracts that limits your vision. Poor vision can increase your chances of falling. 4. Make your home safer About half of all falls happen at home. To make your home safer: Remove things you can trip over (like papers, books, clothes, and shoes) from stairs and places where you walk. Remove small throw rugs or use double-sided tape to keep the rugs from slipping. Keep items you use often in cabinets you can reach easily without using a step stool. Have grab bars put in next to your toilet and in the tub or shower. Use non-slip mats in the bathtub and on shower floors. Improve the lighting in your home. As you get older, you need brighter lights to see well. Hang light-weight curtains or shades to reduce glare. Have handrails and lights put in on all staircases. Wear shoes both inside and outside the house. Avoid going barefoot or wearing slippers. For more information, contact: Centers for Disease Control and Prevention www.cdc.gov/injury * This information may not apply if you have certain medical conditions. VACCINES RECOMMENDED TO BE RECEIVED AT A PHARMACY Hepatitis A Vaccine(1 of 2 - Risk 2-dose series) Never done Hepatitis B Vaccine(1 of 3 - Risk Dialysis 4-dose series) Never done Shingrix Vaccine(2 of 2) due on 07/09/2020 DTaP,Tdap,Td Vaccine(2 - Td or Tdap) due on 11/02/2022 RSV Vaccine(1 - Risk 60-74 years 1-dose series) Never done Allergies As of Date: 06/13/2024 Noted Allergy Reaction CODEINE 12/11/2006 8 - GI Upset LATEX 03/22/2012 4 - Hives Comments: 2006 had reaction after surgery PENICILLINS 12/11/2006 7 - Swelling CHLORHEXIDINE 11/26/2018 2 - Rash Date Reviewed: 06/13/2024 Reviewed by: Edie Samayoa LPN - Fully Assessed Reason for Visit: Medicare Wellness Exam [4060] F/U 3 Month [443] Primary Visit Diagnosis:Medicare annual wellness visit, subsequent [Z00.00] Other Visit Diagnoses:Encounter for immunization [Z23] Arteriovenous fistula, acquired (HCC) [I77.0] Screening for depression [Z13.31] Encounter for screening examination for other mental health and behavioral disorders [Z13.39] Controlled type 2 diabetes mellitus without complication, with long-term current use of insulin (HCC) [E11.9, Z79.4] Primary hypertension [I10] Mixed hyperlipidemia [E78.2] Congestive heart failure, unspecified HF chronicity, unspecified heart failure type (HCC) [I50.9] ESRD on dialysis (HCC) [N18.6, Z99.2] Secondary hyperparathyroidism of renal origin (HCC) [N25.81] Order(s):[employer] COVID-19 VACCINE AGE 12+ YR (COMIRNATY) [[id number]] Order #: [id number] DEPRESSION SCREENING [] Order #: [id number]: 1 ANXIETY SCREENING [] Order #: [id number]: 1 cloNIDine HCl (CATAPRES) 0.2 mg tabletTake 1 tablet by mouth two times a day.Disp: 60 tabletRfl: 5 Prescriptions as of 06/13/2024 - cloNIDine HCl (CATAPRES) 0.2 mg tablet Take 1 tablet by mouth two times a day. - nitroglycerin sublingual (NITROQUICK) 0.4 mg SL tablet Dissolve 1 tablet under the tongue every 5 minutes as needed. - insulin needles, DISPOSABLE, (PEN NEEDLE) 31 gauge x 5/16 Use one needle per dose four times per day. - insulin lispro (HUMALOG KWIKPEN INSULIN) 100 unit/mL Inject 8 Units subcutaneously three times a day before meals. Add 1 unit for each 50 mg/dl above 150 - atorvastatin (LIPITOR) 40 mg tablet Take 1 tablet by mouth daily at bedtime. - levothyroxine (SYNTHROID) 125 mcg tablet Take 1 tablet by mouth once daily. Take on empty stomach. For Thyroid - lisinopril (ZESTRIL) 40 mg tablet Take 1 tablet by mouth once daily. - metoprolol tartrate, short acting, (LOPRESSOR) 25 mg tablet Take 1 tablet by mouth every 12 hours. - amLODIPine (NORVASC) 10 mg tablet Take 1 tablet by mouth once daily. - ciprofloxacin HCl (CILOXAN) 0.3 % ophthalmic solution Use 1 Drop in the left eye four times daily. - SUMAtriptan (IMITREX) 50 mg tablet Take one tablet by mouth at onset of migraine. May repeat in 2 hours if ineffective - insulin detemir U-100 (LEVEMIR FLEXTOUCH U-100 INSULIN) 100 unit/mL (3 mL) injection pen Inject 48 Units subcutaneously daily at bedtime. - ferric citrate 210 mg iron tab Take 1 tablet by mouth once daily. - docusate sodium (COLACE) 100 mg capsule Take 1 capsule by mouth twice daily as needed for Constipation. - NEPHRO-SONDRA 0.8 mg tab Take 1 tablet by mouth once daily. - blood sugar diagnostic (BLOOD GLUCOSE TEST) test strip Test blood sugar(s) 3 times daily. Dx: Type 2 DM - Uncontrolled E11.65 Insulin: Yes - Blood-Glucose Meter (BLOOD GLUCOSE MONITORING) monitoring kit 1 Each three times daily. E11.65. On insulin. - aspirin, enteric coated (ASPIRIN, ENTERIC COATED) 81 mg EC tablet Take 1 tablet by mouth once daily. Problem List As Of Date 06/13/2024 Noted Resolved Calculus of ureter [N20.1] 06/12/2007 03/22/2012 Urinary tract infection, site not specified [N3*06/12/2007 03/22/2012 Renal colic [N23] 06/12/2007 03/22/2012 Controlled type 2 diabetes mellitus without com*09/04/1985 HTN (hypertension) [I10] 09/04/2001 Hyperlipidemia [E78.5] 09/04/1999 Depression [F32.A] 09/04/2006 06/12/2023 Hypothyroid [E03.9] 03/30/2012 ASCVD (arteriosclerotic cardiovascular disease)*05/10/2012 Proteinuria [R80.9] 06/14/2013 CKD (chronic kidney disease) stage 3, GFR 30-59*07/17/2013 05/02/2017 CKD (chronic kidney disease) stage 4, GFR 15-29*04/05/2017 03/02/2018 CKD (chronic kidney disease) stage V requiring *03/01/2018 08/29/2019 ESRD on dialysis (HCC) [N18.6, Z99.2] 05/16/2019 VT (ventricular tachycardia) [I47.20] 05/17/2019 Steal syndrome dialysis vascular access (HCC) [*05/17/2019 02/23/2023 ESRD (end stage renal disease) (HCC) [N18.6] 04/21/2021 10/27/2023 Ventral hernia with obstruction, without gangre*12/09/2021 06/29/2023 Tubular adenoma of colon [D12.6] 11/15/2022 Hyperkalemia [E87.5] 06/20/2023 09/14/2023 Secondary hyperparathyroidism of renal origin (*06/20/2023 Abnormal EKG [R94.31] 06/20/2023 09/14/2023 Hypertrophic cardiomyopathy (HCC) [I42.2] 11/08/2023 Congestive heart failure (HCC) [I50.9] History of echocardiogram [Z92.89] 11/07/2023 History of stress test [Z92.89] 06/21/2023 Encounter for screening for stenosis of carotid*03/27/2023 Arteriovenous fistula, acquired (HCC) [I77.0] 06/13/2024 Other instructions from your clinician: Screening schedule The following prevention plan is recommended: Depression Screening Never done Anxiety Screening Never done Hepatitis A Vaccine(1 of 2 - Risk 2-dose series) Never done Hepatitis B Vaccine(1 of 3 - Risk Dialysis 4-dose series) Never done BP Controlled (<130/80) due on 08/14/2019 Shingrix Vaccine(2 of 2) due on 07/09/2020 DTaP,Tdap,Td Vaccine(2 - Td or Tdap) due on 11/02/2022 Mammogram Screening due on 07/05/2023 RSV Vaccine(1 - Risk 60-74 years 1-dose series) Never done Covid-19 Vaccine( - season) due on 05/05/2024 Dilated Retinal Exam due on 06/27/2024 Cervical Cancer Screening due on 11/06/2024 WHAT YOU CAN DO TO PREVENT FALLS Many falls can be prevented. By making some changes, you can lower your chances of falling. Four things YOU can do to prevent falls for you* and your caregiver 1. Begin a regular exercise program Exercise is one of the most important ways to lower your chances of falling. It makes you stronger and helps you feel better. Exercises that improve balance and coordination (like Eduardo Chi) are the most helpful. Lack of exercise leads to weakness and increases your chances of falling. Ask your doctor or health care provider about the best type of exercise program for you. 2. Have your health care provider review your medicines Have your doctor or pharmacist review all the medicines you take, even agpb-fmd-ofkagky medicines. As you get older, the way medicines work in your body can change. Some medicines, or combinations of medicines, can make you sleepy or dizzy and can cause you to fall. 3. Have your vision checked Have your eyes checked by an eye doctor at least once a year. You may be wearing the wrong glasses or have a condition like glaucoma or cataracts that limits your vision. Poor vision can increase your chances of falling. 4. Make your home safer About half of all falls happen at home. To make your home safer: Remove things you can trip over (like papers, books, clothes, and shoes) from stairs and places where you walk. Remove small throw rugs or use double-sided tape to keep the rugs from slipping. Keep items you use often in cabinets you can reach easily without using a step stool. Have grab bars put in next to your toilet and in the tub or shower. Use non-slip mats in the bathtub and on shower floors. Improve the lighting in your home. As you get older, you need brighter lights to see well. Hang light-weight curtains or shades to reduce glare. Have handrails and lights put in on all staircases. Wear shoes both inside and outside the house. Avoid going barefoot or wearing slippers. For more information, contact: Centers for Disease Control and Prevention www.cdc.gov/injury * This information may not apply if you have certain medical conditions. VACCINES RECOMMENDED TO BE RECEIVED AT A PHARMACY Hepatitis A Vaccine(1 of 2 - Risk 2-dose series) Never done Hepatitis B Vaccine(1 of 3 - Risk Dialysis 4-dose series) Never done Shingrix Vaccine(2 of 2) due on 07/09/2020 DTaP,Tdap,Td Vaccine(2 - Td or Tdap) due on 11/02/2022 RSV Vaccine(1 - Risk 60-74 years 1-dose series) Never done Prescriptions ordered this encounter Disp Refills Start End CLONIDINE HCL 0.2 MG TABLET 60 t* 5 06/13/2024 Route: ORAL Sig: Take 1 tablet by mouth two times a day. Medications Discontinued During This Encounter Prescriptions - cloNIDine HCl (CATAPRES) 0.3 mg tablet (Discontinued) Take 1 tablet by mouth daily at bedtime. Disposition: Return in about 3 months (around 09/13/2024). Follow-up and Disposition History for Encounter Date Provider Department Center 06/13/2024 [id number] DENNY INTMWS [facility] Encounter Status:Closed by MALDONADO DENNY on 06/13/24 ECG COMPLETE Observed: 06/11/2024 7:07 AM Status: F Source: [facility][1] Ventricular Rate : 78 BPM Atrial Rate : 78 BPM P-R Interval : 166 ms QRS Duration : 140 ms Q-T Interval : 444 ms QTC Calculation(Bazett) : 506 ms Calculated P [place] : 59 degrees Calculated R [place] : -50 degrees Calculated T [place] : 104 degrees Normal sinus rhythm Right bundle branch block Left anterior fascicular block Bifascicular block Left ventricular hypertrophy with repolarization abnormality Confirmed by DAVE LAKE DO ([id number]) on 06/16/2024 7:02:00 PM NAME : SANDY BRAVO PID : [id number] : 1965 Gender : Female Race : ORD : [id number] Procedure Date : Jun 11 2024 07:07:23 Edit Date : Jun 16 2024 19:02:06 Diagnosis: Normal sinus rhythm Right bundle branch block Left anterior fascicular block Bifascicular block Left ventricular hypertrophy with repolarization abnormality Confirmed by DAVE LAKE DO ([id number]) on 06/16/2024 7:02:00 PM Test Reason : HCS Location : 2 : [facility] Overread By : DAVE LAKE DO Edited By : DAVE LAKE DO Referred By : , Acquired by : ISAURO Observed: 06/11/2024 7:00 AM Status: COMPLETED Source: [facility][1] Office Visit (VANESSAO) SANDY BRAVO ([id number]) 1965 F Date Time Provider Department 06/11/24 7:00 AM MANDIE BELTRAN During your visit today, we recorded the following information about you: Pulse Blood pressure Weight Height 78/minute 136/68 67.7 kg 1.6 m Mandie Beltran APRN.HOME INSURANCE AGENT 06/11/2024 7:45 AM Signed [facility] Department of Cardiology Referring Provider: No ref. provider found Date: June 11, 2024 Chief Complaint: Congestive heart failure, unspecified HF chronicity, unspecified heart failure type (HCC) Subjective: Sandy Bravo is a 59 year old female who presents as an established patient for coronary artery disease and heart failure assessment management. History of arteriosclerotic vascular disease and hypertension. Patient is a dialysis patient with [facility], [facility]. Patient has a right upper arm fistula. ALLERGIES Allergen Reactions Codeine GI Upset Latex Hives 2005 had reaction after surgery Penicillins Swelling Chlorhexidine Rash PAST MEDICAL HISTORY: PAST MEDICAL HISTORY Diagnosis Date Acute kidney failure ([facility]) 01/14/2018 Anxiety Arterial steal syndrome ([facility]) 12/2018 Left AVF Calculus of ureter 06/12/2007 CKD (chronic kidney disease) stage V requiring chronic dialysis ([facility]) 03/01/2018 Dr. Pendleton, nephrology. Congestive heart failure ([facility]) Constipation Depression 09/04/2006 Encounter for screening for stenosis of carotid artery 03/27/2023 Less then 50% calcification bilaterally. ESRD on dialysis ([facility]) 05/16/2019 GERD (gastroesophageal reflux disease) Hemorrhoids History of echocardiogram 11/07/2023 EF 67%. Severe septal left ventricular hypertrophy. Grade I left ventricular diastolic dysfunction. History of echocardiogram 07/25/2019 EF 70%. Normal scan History of stress test 07/25/2019 EF 62%. No ischemia. History of stress test 07/09/2020 EF 50%. Septal hypokinesis with borderline normal systolic function. History of stress test 06/21/2023 EF 67%. No ischemia. Normal scan HTN (hypertension) 09/04/2001 Hyperlipidemia 09/04/1999 Hypertrophic cardiomyopathy (HCC) 07/25/2019 echo in 2023 confirms 40mmhg gradient with valsalva Hypothyroid 03/30/2012 Proteinuria 06/14/2013 Renal colic 06/12/2007 Secondary hyperparathyroidism of renal origin ([facility]) 06/20/2023 Steal syndrome dialysis vascular access ([facility]) 05/17/2019 Thyroid disorder TIA (transient ischemic attack) 06/2019 Tubular adenoma of colon 11/15/2022 Type II or unspecified type diabetes mellitus without mention of complication, not stated as uncontrolled 09/04/1985 Ventral hernia with bowel obstruction 06/01/2023 PAST SURGICAL HISTORY Procedure Laterality Date APPENDECTOMY 1992 AV ANASTOMIES OPEN;BY BASILIC VEIN WINN Right 04/20/2020 transpose basilic vein fistula, R arm AV FISTULA OR GRAFT VENOUS Left 10/04/2017 AV FISTULA OR GRAFT VENOUS Left 09/20/2018 redo, failure to mature AV FISTULA OR GRAFT VENOUS Right 04/21/2021 BOWEL RESECTION HX 2006 CHOLECYSTECTOMY 1985 Cholecystectomy COLONOSCOPY SCREENING 11/15/2022 COLOSTOMY/SKIN LEVEL CECOSTOMY 2007 [id number], reversed 2007 CREATION OF AVF, PERCUTANEOUS USING MAGNETIC-GUIDED ARTERIAL AND VENOUS CATHETERS AND RADIOFREQUENCY ENERGY Right 11/14/2019 RIGHT AVF stage I EXPLORATORY LAPAROTOMY CELIOTOMY W/WO BIOPSY SPX 2006 Laparotomy, exp EXPLORATORY LAPAROTOMY, CELIOTOMY-SP 05/31/2023 lysis of adhesions, small bowel enterotomy repair. IR VENOUS FISTULAGRAM Left 01/22/2019 Left SC balloon LEFT HEART CATH,PERCUTANEOUS 03/12/2012 Medical Mx LEFT HEART CATH,PERCUTANEOUS 05/14/2018 Medical Mx PAST SURGICAL HISTORY OF Left 05/16/2019 LUE DRIL (proximal brachial to distal brachial artery bypass with RLE rGSV PAST SURGICAL HISTORY OF Left Cataract removed REDUCTION OF LARGE BREAST 1990 SALPINGECTOMY OR OOPHERECTOMY-ECTOPIC 1986 SLING OPER STRES INCONTINENCE 1998 TOTAL ABDOMINAL HYSTERECT W/WO RMVL TUBE OVARY 1990 Hysterectomy, RUSSELL FAMILY HISTORY Problem Relation Age of Onset Diabetes Mother Coronary Artery Disease Mother COPD Mother dec. age 79 Cancer Mother lung cancer Colon Cancer Father at age 52 Diabetes Sister Hypertension Sister Kidney Disease Brother other (Heart condition) Brother Diabetes Brother Cancer Brother lung cancer Coronary Artery Disease Brother dec. [place] 57 y.o. 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 insulin lispro (HUMALOG KWIKPEN INSULIN) 100 unit/mL Inject 8 Units subcutaneously three times a day before meals. Add 1 unit for each 50 mg/dl above 150 atorvastatin (LIPITOR) 40 mg tablet Take 1 tablet by mouth daily at bedtime. levothyroxine (SYNTHROID) 125 mcg tablet Take 1 tablet by mouth once daily. Take on empty stomach. For Thyroid lisinopril (ZESTRIL) 40 mg tablet Take 1 tablet by mouth once daily. metoprolol tartrate, short acting, (LOPRESSOR) 25 mg tablet Take 1 tablet by mouth every 12 hours. amLODIPine (NORVASC) 10 mg tablet Take 1 tablet by mouth once daily. ciprofloxacin HCl (CILOXAN) 0.3 % ophthalmic solution Use 1 Drop in the left eye four times daily. cloNIDine HCl (CATAPRES) 0.3 mg tablet Take 1 tablet by mouth daily at bedtime. SUMAtriptan (IMITREX) 50 mg tablet Take one tablet by mouth at onset of migraine. May repeat in 2 hours if ineffective insulin detemir U-100 (LEVEMIR FLEXTOUCH U-100 INSULIN) 100 unit/mL (3 mL) injection pen Inject 48 Units subcutaneously daily at bedtime. ferric citrate 210 mg iron tab Take 1 tablet by mouth once daily. docusate sodium (COLACE) 100 mg capsule Take 1 capsule by mouth twice daily as needed for Constipation. nitroglycerin sublingual (NITROQUICK) 0.4 mg SL tablet Dissolve 0.4 mg under the tongue every 5 minutes as needed. NEPHRO-SONDRA 0.8 mg tab Take 1 tablet by mouth once daily. blood sugar diagnostic (BLOOD GLUCOSE TEST) test strip Test blood sugar(s) 3 times daily. Dx: Type 2 DM - Uncontrolled E11.65 Insulin: Yes Blood-Glucose Meter (BLOOD GLUCOSE MONITORING) monitoring kit 1 Each three times daily. E11.65. On insulin. aspirin, enteric coated (ASPIRIN, ENTERIC COATED) 81 mg EC tablet Take 1 tablet by mouth once daily. No current facility-administered medications for this visit. I have personally reviewed the patients past medical history including social, family, surgical, diagnostics, and medications./AB REVIEW OF SYSTEMS: Review of Systems Constitutional: Negative for chills and fatigue. Respiratory: Negative for chest tightness and shortness of breath. Cardiovascular: Negative for chest pain, palpitations and leg swelling. Neurological: Negative for dizziness, syncope, weakness and light-headedness. Hematological: Bruises/bleeds easily. Psychiatric/Behavioral: Negative for confusion and hallucinations. Vitals: BP 154/50 (BP Site: Left Arm, BP Position: Sitting, BP Cuff Size: Large Adult) Pulse 78 Ht 160 cm (5' 3) Wt 67.7 kg (149 lb 4 oz) SpO2 97% BMI 26.44 kg/m? PHYSICAL EXAMINATION: BP 154/50 (BP Site: Left Arm, BP Position: Sitting, BP Cuff Size: Large Adult) Pulse 78 Ht 160 cm (5' 3) Wt 67.7 kg (149 lb 4 oz) SpO2 97% BMI 26.44 kg/m? Last 3 Encounter BP Readings: Date: BP: 05/16/2024 191/74 05/08/2024 144/69 05/08/2024 167/67 Last 3 Encounter Pulse Readings: Date: Pulse: 05/16/2024 91 05/08/2024 86 05/08/2024 82 Last 3 Encounter Wt Readings: Date: Wt: 05/08/2024 66.7 kg (147 lb) 02/29/2024 67.5 kg (148 lb 12.8 oz) 01/11/2024 67.2 kg (148 lb 1.6 oz) Physical Exam Vitals reviewed. Constitutional: General: She is not in acute distress. Appearance: She is not ill-appearing or diaphoretic. Cardiovascular: Rate and Rhythm: Normal rate and regular rhythm. Pulses: Carotid pulses are 2+ on the right side and 2+ on the left side. Radial pulses are 2+ on the right side and 2+ on the left side. Femoral pulses are 2+ on the right side and 2+ on the left side. Popliteal pulses are 2+ on the right side and 2+ on the left side. Dorsalis pedis pulses are 2+ on the right side and 2+ on the left side. Posterior tibial pulses are 2+ on the right side and 2+ on the left side. Heart sounds: Murmur heard. Systolic murmur is present with a grade of 2/6. Comments: PMI not displaced. 2nd heart sound loud. Pulmonary: Effort: Pulmonary effort is normal. Breath sounds: Normal breath sounds. No wheezing, rhonchi or rales. Abdominal: General: Abdomen is flat. Bowel sounds are normal. Palpations: Abdomen is soft. Tenderness: There is no abdominal tenderness. There is no guarding. Musculoskeletal: Right lower leg: No edema. Left lower leg: No edema. Skin: General: Skin is warm. Coloration: Skin is pale. Skin is not jaundiced. Findings: No bruising, rash or wound. Neurological: General: No focal deficit present. Mental Status: She is alert and oriented to person, place, and time. Coordination: Coordination is intact. LABS: Glucose (mg/dL) Date Value 05/08/2024 392 04/23/2021 308 04/23/2021 304 Potassium (mmol/L) Date Value 05/08/2024 4.7 04/23/2021 4.4 04/23/2021 4.3 Sodium (mmol/L) Date Value 05/08/2024 138 04/23/2021 137 04/23/2021 136 Chloride (mmol/L) Date Value 05/08/2024 94 04/23/2021 96 04/23/2021 95 CO2 (mmol/L) Date Value 05/08/2024 31 04/23/2021 27 04/23/2021 28 Creatinine (mg/dL) Date Value 05/08/2024 4.01 04/23/2021 4.67 04/23/2021 4.59 BUN (mg/dL) Date Value 05/08/2024 19 04/23/2021 22 04/23/2021 22 Anion Gap (mmol/L) Date Value 05/08/2024 13 04/23/2021 14 04/23/2021 13 Calcium (mg/dL) Date Value 04/23/2021 8.9 04/23/2021 8.7 Calcium, Total (mg/dL) Date Value 05/08/2024 9.9 Protein, Total (g/dL) Date Value 02/29/2024 7.2 11/12/2019 7.3 Albumin (g/dL) Date Value 02/29/2024 4.3 02/09/2021 4.2 Bilirubin, Total (mg/dL) Date Value 02/29/2024 0.3 11/12/2019 0.3 Alkaline Phosphatase (U/L) Date Value 02/29/2024 275 11/12/2019 254 AST (U/L) Date Value 02/29/2024 34 11/12/2019 40 ALT (U/L) Date Value 02/29/2024 27 11/12/2019 23 Hemoglobin (g/dL) Date Value 05/08/2024 11.6 04/23/2021 8.6 Hematocrit (%) Date Value 05/08/2024 37.1 04/23/2021 26.8 WBC (k/uL) Date Value 05/08/2024 4.54 04/23/2021 6.82 Cholesterol, Total (mg/dL) Date Value 03/30/2021 133 Total Cholesterol, Nonfasting (mg/dL) Date Value 02/29/2024 129 HDL Cholesterol (mg/dL) Date Value 03/30/2021 55 HDL Cholesterol, Nonfasting (mg/dL) Date Value 02/29/2024 55 LDL Cholesterol (mg/dL) Date Value 03/30/2021 57 LDL Cholesterol, Nonfasting (mg/dL) Date Value 02/29/2024 60 Triglyceride (mg/dL) Date Value 03/30/2021 105 Triglycerides, Nonfasting (mg/dL) Date Value 02/29/2024 71 EKG: I have provided a picture of today's EKG for your convenience and easy access. please note the interpretation on the EKG image is computer-generated and not the official interpretation DIAGNOSTIC RESULTS: ASSESSMENT/PLAN: 1. Congestive heart failure, unspecified HF chronicity, unspecified heart failure type (HCC) - ICD9: 428.0, ICD10: I50.9 (primary diagnosis) -Grade I left ventricular diastolic dysfunction. - Continue current medications - Encouraged daily weights - Call if 5 lbs gained in 7 days - Patient is a dialysis patient with dialysis treatment every [facility] -Currently taking lisinopril 40 mg daily 2. ASCVD (arteriosclerotic cardiovascular disease) - ICD9: 429.2, 440.9, ICD10: I25.10 -Patient denies any chest pain or chest pressure -Patient denies any shortness of breath 3. Primary hypertension - ICD9: 401.9, ICD10: I10 - Controlled - Continue current medications - Recommend home blood pressure monitoring, to bring results to next visit - Encouraged sodium restriction, DASH or Mediterranean diet - Recommend regular aerobic exercise - Discussed need for and benefit of weight loss. BMI 26.44 kg/(m2) 4. Mixed hyperlipidemia - ICD9: 272.2, ICD10: E78.2 -Currently taking atorvastatin - Continue current medications - Counseled on healthy diet and regular exercise -Statin is followed and managed through [facility] 5. History of echocardiogram - ICD9: V15.89, ICD10: Z92.89 -History of an echocardiogram 11/07/2023 -EF 67%; severe left ventricular hypertrophy. Grade 1 left ventricular diastolic dysfunction -Currently taking lisinopril 40 mg daily 6. History of cardiovascular stress test - ICD9: V15.89, ICD10: Z92.89 -History of a cardiac stress test 06/21/2023 -EF 67%. No ischemia. Normal scan 7. History of carotid artery stenosis - ICD9: V12.59, ICD10: Z86.79 -History of a carotid Doppler 03/27/2023 -Less then 50% calcification bilaterally. 8. History of diabetes mellitus - ICD9: V12.29, ICD10: Z86.39 -Reviewed with patient there increased cardiovascular risk, often seen with diabetic patients including stroke and heart attacks. Also at risk for blindness, kidney failure and neuropathy. Recommend yearly eye exam as well as routine labs to monitor kidney function. -Diabetes is followed and managed through primary care 9. Former smoker - ICD9: V15.82, ICD10: Z87.891 -Patient was met in 2005 Mandie Beltran APRN.CNP Follow up in: 6 months heart failure Greater than 50% of this > 20 minute visit was spent face to face discussing current diagnosis and treatment plan consisting of above outlined plan. Follow-up as documented above. I have discussed the recommended treatment, alternative treatments and other treatment options in detail. I have discussed the risks, benefits and side effect of the recommended treatment. I have attempted to answer all their questions to their satisfaction and understanding of the explanation has been voiced. With approval we will pursue the recommended treatment. During this office visit I reviewed the patients previous Cardiac testing and procedures results and reviewed the results with the patient. I, Mandie Beltran CNP have reviewed and agree with the information in the medical record transcribed by Mandie Beltran APRN.CNP. Mandie Beltran APRN.CNP This patient note was partially generated from using the [employer] voice recognition system. There may be some incorrect words, spelling, and punctuation that were not noted in checking the note prior to saving Allergies As of Date: 06/11/2024 Noted Allergy Reaction CODEINE 12/11/2006 8 - GI Upset LATEX 03/22/2012 4 - Hives Comments: 2006 had reaction after surgery PENICILLINS 12/11/2006 7 - Swelling CHLORHEXIDINE 11/26/2018 2 - Rash Date Reviewed: 06/11/2024 Reviewed by: Tonny Benoit MA - Fully Assessed Reason for Visit: Established Patient Follow-Up [[id number]] Cmt: 6 month follow up, hx of ASCVD Primary Visit Diagnosis:Congestive heart failure, unspecified HF chronicity, unspecified heart failure type (HCC) [I50.9] Other Visit Diagnoses:ASCVD (arteriosclerotic cardiovascular disease) [I25.10] Primary hypertension [I10] Mixed hyperlipidemia [E78.2] History of echocardiogram [Z92.89] History of cardiovascular stress test [Z92.89] History of carotid artery stenosis [Z86.79] History of diabetes mellitus [Z86.39] Former smoker [Z87.891] Order(s):ECG COMPLETE [ECG01] Order #: [id number]. #:[id number] nitroglycerin sublingual (NITROQUICK) 0.4 mg SL tabletDissolve 1 tablet under the tongue every 5 minutes as needed.Disp: 25 tabletRfl: 1 Prescriptions as of 06/11/2024 - nitroglycerin sublingual (NITROQUICK) 0.4 mg SL tablet Dissolve 1 tablet under the tongue every 5 minutes as needed. - insulin needles, DISPOSABLE, (PEN NEEDLE) 31 gauge x 5/16 Use one needle per dose four times per day. - insulin lispro (HUMALOG KWIKPEN INSULIN) 100 unit/mL Inject 8 Units subcutaneously three times a day before meals. Add 1 unit for each 50 mg/dl above 150 - atorvastatin (LIPITOR) 40 mg tablet Take 1 tablet by mouth daily at bedtime. - levothyroxine (SYNTHROID) 125 mcg tablet Take 1 tablet by mouth once daily. Take on empty stomach. For Thyroid - lisinopril (ZESTRIL) 40 mg tablet Take 1 tablet by mouth once daily. - metoprolol tartrate, short acting, (LOPRESSOR) 25 mg tablet Take 1 tablet by mouth every 12 hours. - amLODIPine (NORVASC) 10 mg tablet Take 1 tablet by mouth once daily. - ciprofloxacin HCl (CILOXAN) 0.3 % ophthalmic solution Use 1 Drop in the left eye four times daily. - cloNIDine HCl (CATAPRES) 0.3 mg tablet Take 1 tablet by mouth daily at bedtime. - SUMAtriptan (IMITREX) 50 mg tablet Take one tablet by mouth at onset of migraine. May repeat in 2 hours if ineffective - insulin detemir U-100 (LEVEMIR FLEXTOUCH U-100 INSULIN) 100 unit/mL (3 mL) injection pen Inject 48 Units subcutaneously daily at bedtime. - ferric citrate 210 mg iron tab Take 1 tablet by mouth once daily. - docusate sodium (COLACE) 100 mg capsule Take 1 capsule by mouth twice daily as needed for Constipation. - NEPHRO-SONDRA 0.8 mg tab Take 1 tablet by mouth once daily. - blood sugar diagnostic (BLOOD GLUCOSE TEST) test strip Test blood sugar(s) 3 times daily. Dx: Type 2 DM - Uncontrolled E11.65 Insulin: Yes - Blood-Glucose Meter (BLOOD GLUCOSE MONITORING) monitoring kit 1 Each three times daily. E11.65. On insulin. - aspirin, enteric coated (ASPIRIN, ENTERIC COATED) 81 mg EC tablet Take 1 tablet by mouth once daily. Problem List As Of Date 06/11/2024 Noted Resolved Calculus of ureter [N20.1] 06/12/2007 03/22/2012 Urinary tract infection, site not specified [N3*06/12/2007 03/22/2012 Renal colic [N23] 06/12/2007 03/22/2012 Controlled type 2 diabetes mellitus without com*09/04/1985 HTN (hypertension) [I10] 09/04/2001 Hyperlipidemia [E78.5] 09/04/1999 Depression [F32.A] 09/04/2006 06/12/2023 Hypothyroid [E03.9] 03/30/2012 ASCVD (arteriosclerotic cardiovascular disease)*05/10/2012 Proteinuria [R80.9] 06/14/2013 CKD (chronic kidney disease) stage 3, GFR 30-59*07/17/2013 05/02/2017 CKD (chronic kidney disease) stage 4, GFR 15-29*04/05/2017 03/02/2018 CKD (chronic kidney disease) stage V requiring *03/01/2018 08/29/2019 ESRD on dialysis (HCC) [N18.6, Z99.2] 05/16/2019 VT (ventricular tachycardia) [I47.20] 05/17/2019 Steal syndrome dialysis vascular access (HCC) [*05/17/2019 02/23/2023 ESRD (end stage renal disease) (HCC) [N18.6] 04/21/2021 10/27/2023 Ventral hernia with obstruction, without gangre*12/09/2021 06/29/2023 Tubular adenoma of colon [D12.6] 11/15/2022 Hyperkalemia [E87.5] 06/20/2023 09/14/2023 Secondary hyperparathyroidism of renal origin (*06/20/2023 Abnormal EKG [R94.31] 06/20/2023 09/14/2023 Hypertrophic cardiomyopathy (HCC) [I42.2] 11/08/2023 Congestive heart failure (HCC) [I50.9] History of echocardiogram [Z92.89] 11/07/2023 History of stress test [Z92.89] 06/21/2023 Encounter for screening for stenosis of carotid*03/27/2023 Prescriptions ordered this encounter Disp Refills Start End NITROGLYCERIN 0.4 MG SUBLINGUAL TABL* 25 t* 1 06/11/2024 Route: SUBLINGUAL Sig: Dissolve 1 tablet under the tongue every 5 minutes as needed. Medications Discontinued During This Encounter Prescriptions - nitroglycerin sublingual (NITROQUICK) 0.4 mg SL tablet (Discontinued) Dissolve 0.4 mg under the tongue every 5 minutes as needed. Encounter Status:Closed by MANDIE BELTRAN on 06/11/24 PROGRESS Observed: 06/11/2024 6:51 AM Status: COMPLETED Source: [facility][1] HNO ID: [id number] Author: MANDIE BELTRAN APRN.HOME INSURANCE AGENT Service: ? Author Type: Nurse Practitioner Type: Progress Notes Filed: 06/11/2024 07:45 Note Text: [facility] Department of Cardiology Referring Provider: No ref. provider found Date: June 11, 2024 Chief Complaint: Congestive heart failure, unspecified HF chronicity, unspecified heart failure type (HCC) Subjective: Sandy Bravo is a 59 year old female who presents as an established patient for coronary artery disease and heart failure assessment management. History of arteriosclerotic vascular disease and hypertension. Patient is a dialysis patient with [facility], [facility]. Patient has a right upper arm fistula. ALLERGIES Allergen Reactions Codeine GI Upset Latex Hives 2005 had reaction after surgery Penicillins Swelling Chlorhexidine Rash PAST MEDICAL HISTORY: PAST MEDICAL HISTORY Diagnosis Date Acute kidney failure (HCC) 01/14/2018 Anxiety Arterial steal syndrome (HCC) 12/2018 Left AVF Calculus of ureter 06/12/2007 CKD (chronic kidney disease) stage V requiring chronic dialysis (HCC) 03/01/2018 Dr. Pendleton, nephrology. Congestive heart failure (HCC) Constipation Depression 09/04/2006 Encounter for screening for stenosis of carotid artery 03/27/2023 Less then 50% calcification bilaterally. ESRD on dialysis (HCC) 05/16/2019 GERD (gastroesophageal reflux disease) Hemorrhoids History of echocardiogram 11/07/2023 EF 67%. Severe septal left ventricular hypertrophy. Grade I left ventricular diastolic dysfunction. History of echocardiogram 07/25/2019 EF 70%. Normal scan History of stress test 07/25/2019 EF 62%. No ischemia. History of stress test 07/09/2020 EF 50%. Septal hypokinesis with borderline normal systolic function. History of stress test 06/21/2023 EF 67%. No ischemia. Normal scan HTN (hypertension) 09/04/2001 Hyperlipidemia 09/04/1999 Hypertrophic cardiomyopathy (HCC) 07/25/2019 echo in 2023 confirms 40mmhg gradient with valsalva Hypothyroid 03/30/2012 Proteinuria 06/14/2013 Renal colic 06/12/2007 Secondary hyperparathyroidism of renal origin (HCC) 06/20/2023 Steal syndrome dialysis vascular access ([facility]) 05/17/2019 Thyroid disorder TIA (transient ischemic attack) 06/2019 Tubular adenoma of colon 11/15/2022 Type II or unspecified type diabetes mellitus without mention of complication, not stated as uncontrolled 09/04/1985 Ventral hernia with bowel obstruction 06/01/2023 PAST SURGICAL HISTORY Procedure Laterality Date APPENDECTOMY 1992 AV ANASTOMIES OPEN;BY BASILIC VEIN WINN Right 04/20/2020 transpose basilic vein fistula, R arm AV FISTULA OR GRAFT VENOUS Left 10/04/2017 AV FISTULA OR GRAFT VENOUS Left 09/20/2018 redo, failure to mature AV FISTULA OR GRAFT VENOUS Right 04/21/2021 BOWEL RESECTION HX 2006 CHOLECYSTECTOMY 1985 Cholecystectomy COLONOSCOPY SCREENING 11/15/2022 COLOSTOMY/SKIN LEVEL CECOSTOMY 2007 [id number], reversed 2006 CREATION OF AVF, PERCUTANEOUS USING MAGNETIC-GUIDED ARTERIAL AND VENOUS CATHETERS AND RADIOFREQUENCY ENERGY Right 11/14/2019 RIGHT AVF stage I EXPLORATORY LAPAROTOMY CELIOTOMY W/WO BIOPSY SPX 2006 Laparotomy, exp EXPLORATORY LAPAROTOMY, CELIOTOMY-SP 05/31/2023 lysis of adhesions, small bowel enterotomy repair. IR VENOUS FISTULAGRAM Left 01/22/2019 Left SC balloon LEFT HEART CATH,PERCUTANEOUS 03/12/2012 Medical Mx LEFT HEART CATH,PERCUTANEOUS 05/14/2018 Medical Mx PAST SURGICAL HISTORY OF Left 05/16/2019 LUE LEXI (proximal brachial to distal brachial artery bypass with RLE rGSV PAST SURGICAL HISTORY OF Left Cataract removed REDUCTION OF LARGE BREAST 1989 SALPINGECTOMY OR OOPHERECTOMY-ECTOPIC 1986 SLING OPER STRES INCONTINENCE 1998 TOTAL ABDOMINAL HYSTERECT W/WO RMVL TUBE OVARY 1990 Hysterectomy, RUSSELL FAMILY HISTORY Problem Relation Age of Onset Diabetes Mother Coronary Artery Disease Mother COPD Mother dec. age 79 Cancer Mother lung cancer Colon Cancer Father at age 52 Diabetes Sister Hypertension Sister Kidney Disease Brother other (Heart condition) Brother Diabetes Brother Cancer Brother lung cancer Coronary Artery Disease Brother dec. [place] 57 y.o. 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 insulin lispro (HUMALOG KWIKPEN INSULIN) 100 unit/mL Inject 8 Units subcutaneously three times a day before meals. Add 1 unit for each 50 mg/dl above 150 atorvastatin (LIPITOR) 40 mg tablet Take 1 tablet by mouth daily at bedtime. levothyroxine (SYNTHROID) 125 mcg tablet Take 1 tablet by mouth once daily. Take on empty stomach. For Thyroid lisinopril (ZESTRIL) 40 mg tablet Take 1 tablet by mouth once daily. metoprolol tartrate, short acting, (LOPRESSOR) 25 mg tablet Take 1 tablet by mouth every 12 hours. amLODIPine (NORVASC) 10 mg tablet Take 1 tablet by mouth once daily. ciprofloxacin HCl (CILOXAN) 0.3 % ophthalmic solution Use 1 Drop in the left eye four times daily. cloNIDine HCl (CATAPRES) 0.3 mg tablet Take 1 tablet by mouth daily at bedtime. SUMAtriptan (IMITREX) 50 mg tablet Take one tablet by mouth at onset of migraine. May repeat in 2 hours if ineffective insulin detemir U-100 (LEVEMIR FLEXTOUCH U-100 INSULIN) 100 unit/mL (3 mL) injection pen Inject 48 Units subcutaneously daily at bedtime. ferric citrate 210 mg iron tab Take 1 tablet by mouth once daily. docusate sodium (COLACE) 100 mg capsule Take 1 capsule by mouth twice daily as needed for Constipation. nitroglycerin sublingual (NITROQUICK) 0.4 mg SL tablet Dissolve 0.4 mg under the tongue every 5 minutes as needed. NEPHRO-SONDRA 0.8 mg tab Take 1 tablet by mouth once daily. blood sugar diagnostic (BLOOD GLUCOSE TEST) test strip Test blood sugar(s) 3 times daily. Dx: Type 2 DM - Uncontrolled E11.65 Insulin: Yes Blood-Glucose Meter (BLOOD GLUCOSE MONITORING) monitoring kit 1 Each three times daily. E11.65. On insulin. aspirin, enteric coated (ASPIRIN, ENTERIC COATED) 81 mg EC tablet Take 1 tablet by mouth once daily. No current facility-administered medications for this visit. I have personally reviewed the patients past medical history including social, family, surgical, diagnostics, and medications./AB REVIEW OF SYSTEMS: Review of Systems Constitutional: Negative for chills and fatigue. Respiratory: Negative for chest tightness and shortness of breath. Cardiovascular: Negative for chest pain, palpitations and leg swelling. Neurological: Negative for dizziness, syncope, weakness and light-headedness. Hematological: Bruises/bleeds easily. Psychiatric/Behavioral: Negative for confusion and hallucinations. Vitals: BP 154/50 (BP Site: Left Arm, BP Position: Sitting, BP Cuff Size: Large Adult) Pulse 78 Ht 160 cm (5' 3) Wt 67.7 kg (149 lb 4 oz) SpO2 97% BMI 26.44 kg/m? PHYSICAL EXAMINATION: BP 154/50 (BP Site: Left Arm, BP Position: Sitting, BP Cuff Size: Large Adult) Pulse 78 Ht 160 cm (5' 3) Wt 67.7 kg (149 lb 4 oz) SpO2 97% BMI 26.44 kg/m? Last 3 Encounter BP Readings: Date: BP: 05/16/2024 191/74 05/08/2024 144/69 05/08/2024 167/67 Last 3 Encounter Pulse Readings: Date: Pulse: 05/16/2024 91 05/08/2024 86 05/08/2024 82 Last 3 Encounter Wt Readings: Date: Wt: 05/08/2024 66.7 kg (147 lb) 02/29/2024 67.5 kg (148 lb 12.8 oz) 01/11/2024 67.2 kg (148 lb 1.6 oz) Physical Exam Vitals reviewed. Constitutional: General: She is not in acute distress. Appearance: She is not ill-appearing or diaphoretic. Cardiovascular: Rate and Rhythm: Normal rate and regular rhythm. Pulses: Carotid pulses are 2+ on the right side and 2+ on the left side. Radial pulses are 2+ on the right side and 2+ on the left side. Femoral pulses are 2+ on the right side and 2+ on the left side. Popliteal pulses are 2+ on the right side and 2+ on the left side. Dorsalis pedis pulses are 2+ on the right side and 2+ on the left side. Posterior tibial pulses are 2+ on the right side and 2+ on the left side. Heart sounds: Murmur heard. Systolic murmur is present with a grade of 2/6. Comments: PMI not displaced. 2nd heart sound loud. Pulmonary: Effort: Pulmonary effort is normal. Breath sounds: Normal breath sounds. No wheezing, rhonchi or rales. Abdominal: General: Abdomen is flat. Bowel sounds are normal. Palpations: Abdomen is soft. Tenderness: There is no abdominal tenderness. There is no guarding. Musculoskeletal: Right lower leg: No edema. Left lower leg: No edema. Skin: General: Skin is warm. Coloration: Skin is pale. Skin is not jaundiced. Findings: No bruising, rash or wound. Neurological: General: No focal deficit present. Mental Status: She is alert and oriented to person, place, and time. Coordination: Coordination is intact. LABS: Glucose (mg/dL) Date Value 05/08/2024 392 04/23/2021 308 04/23/2021 304 Potassium (mmol/L) Date Value 05/08/2024 4.7 04/23/2021 4.4 04/23/2021 4.3 Sodium (mmol/L) Date Value 05/08/2024 138 04/23/2021 137 04/23/2021 136 Chloride (mmol/L) Date Value 05/08/2024 94 04/23/2021 96 04/23/2021 95 CO2 (mmol/L) Date Value 05/08/2024 31 04/23/2021 27 04/23/2021 28 Creatinine (mg/dL) Date Value 05/08/2024 4.01 04/23/2021 4.67 04/23/2021 4.59 BUN (mg/dL) Date Value 05/08/2024 19 04/23/2021 22 04/23/2021 22 Anion Gap (mmol/L) Date Value 05/08/2024 13 04/23/2021 14 04/23/2021 13 Calcium (mg/dL) Date Value 04/23/2021 8.9 04/23/2021 8.7 Calcium, Total (mg/dL) Date Value 05/08/2024 9.9 Protein, Total (g/dL) Date Value 02/29/2024 7.2 11/12/2019 7.3 Albumin (g/dL) Date Value 02/29/2024 4.3 02/09/2021 4.2 Bilirubin, Total (mg/dL) Date Value 02/29/2024 0.3 11/12/2019 0.3 Alkaline Phosphatase (U/L) Date Value 02/29/2024 275 11/12/2019 254 AST (U/L) Date Value 02/29/2024 34 11/12/2019 40 ALT (U/L) Date Value 02/29/2024 27 11/12/2019 23 Hemoglobin (g/dL) Date Value 05/08/2024 11.6 04/23/2021 8.6 Hematocrit (%) Date Value 05/08/2024 37.1 04/23/2021 26.8 WBC (k/uL) Date Value 05/08/2024 4.54 04/23/2021 6.82 Cholesterol, Total (mg/dL) Date Value 03/30/2021 133 Total Cholesterol, Nonfasting (mg/dL) Date Value 02/29/2024 129 HDL Cholesterol (mg/dL) Date Value 03/30/2021 55 HDL Cholesterol, Nonfasting (mg/dL) Date Value 02/29/2024 55 LDL Cholesterol (mg/dL) Date Value 03/30/2021 57 LDL Cholesterol, Nonfasting (mg/dL) Date Value 02/29/2024 60 Triglyceride (mg/dL) Date Value 03/30/2021 105 Triglycerides, Nonfasting (mg/dL) Date Value 02/29/2024 71 EKG: I have provided a picture of today's EKG for your convenience and easy access. please note the interpretation on the EKG image is computer-generated and not the official interpretation DIAGNOSTIC RESULTS: ASSESSMENT/PLAN: 1. Congestive heart failure, unspecified HF chronicity, unspecified heart failure type (HCC) - ICD9: 428.0, ICD10: I50.9 (primary diagnosis) -Grade I left ventricular diastolic dysfunction. - Continue current medications - Encouraged daily weights - Call if 5 lbs gained in 7 days - Patient is a dialysis patient with dialysis treatment every Fqgcgy-Gtuwbgfxy-Ouugse -Currently taking lisinopril 40 mg daily 2. ASCVD (arteriosclerotic cardiovascular disease) - ICD9: 429.2, 440.9, ICD10: I25.10 -Patient denies any chest pain or chest pressure -Patient denies any shortness of breath 3. Primary hypertension - ICD9: 401.9, ICD10: I10 - Controlled - Continue current medications - Recommend home blood pressure monitoring, to bring results to next visit - Encouraged sodium restriction, DASH or Mediterranean diet - Recommend regular aerobic exercise - Discussed need for and benefit of weight loss. BMI 26.44 kg/(m2) 4. Mixed hyperlipidemia - ICD9: 272.2, ICD10: E78.2 -Currently taking atorvastatin - Continue current medications - Counseled on healthy diet and regular exercise -Statin is followed and managed through [facility] 5. History of echocardiogram - ICD9: V15.89, ICD10: Z92.89 -History of an echocardiogram 11/07/2023 -EF 67%; severe left ventricular hypertrophy. Grade 1 left ventricular diastolic dysfunction -Currently taking lisinopril 40 mg daily 6. History of cardiovascular stress test - ICD9: V15.89, ICD10: Z92.89 -History of a cardiac stress test 06/21/2023 -EF 67%. No ischemia. Normal scan 7. History of carotid artery stenosis - ICD9: V12.59, ICD10: Z86.79 -History of a carotid Doppler 03/27/2023 -Less then 50% calcification bilaterally. 8. History of diabetes mellitus - ICD9: V12.29, ICD10: Z86.39 -Reviewed with patient there increased cardiovascular risk, often seen with diabetic patients including stroke and heart attacks. Also at risk for blindness, kidney failure and neuropathy. Recommend yearly eye exam as well as routine labs to monitor kidney function. -Diabetes is followed and managed through primary care 9. Former smoker - ICD9: V15.82, ICD10: Z87.891 -Patient was met in 2005 Mandie Beltran APRN.CNP Follow up in: 6 months heart failure Greater than 50% of this > 20 minute visit was spent face to face discussing current diagnosis and treatment plan consisting of above outlined plan. Follow-up as documented above. I have discussed the recommended treatment, alternative treatments and other treatment options in detail. I have discussed the risks, benefits and side effect of the recommended treatment. I have attempted to answer all their questions to their satisfaction and understanding of the explanation has been voiced. With approval we will pursue the recommended treatment. During this office visit I reviewed the patients previous Cardiac testing and procedures results and reviewed the results with the patient. I, Mandie Beltran CNP have reviewed and agree with the information in the medical record transcribed by Mandie Beltran APRN.CNP. Mandie Beltran APRN.CNP This patient note was partially generated from using the [employer] voice recognition system. There may be some incorrect words, spelling, and punctuation that were not noted in checking the note prior to saving JULIANNEN Observed: 06/04/2024 12:00 AM Status: COMPLETED Source: [facility] Telephone (OPHTMN) SANDY BRAVO ([id number]) 1965 F Date Time Provider Department 06/04/24 ROBERT LALA OPHBASSAMN During your visit today, we recorded the following information about you: Celsa Chung 06/04/2024 11:[address] Byron Day is referring this pt to Dr. 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 They did specifically say Dr. Lala unless you feel this patient can be seen by any of our uveitis specialists in which case I can have our appt office help set the patient up. Please advise. They said they will also be sending notes over for review. Janice Lakhani RN 06/05/2024 6:31 AM Signed We can see them 07/11 at 9 am. Thanks, Celsa Kunz 06/05/2024 10:04 AM Signed She said she has other appts that day but that are good for her since she has dialysis on . Is there another she can be seen instead? Janice Lakhani RN 06/05/2024 10:19 AM Signed 08/08 at 2:30. Celsa Kunz 06/05/2024 10:38 AM Signed I spoke with her and she will come in on 08/08 at 2:30. Appt sent to be scheduled. Allergies As of Date: 06/04/2024 Noted Allergy Reaction CODEINE 12/11/2006 8 - GI Upset LATEX 03/22/2012 4 - Hives Comments: 2006 had reaction after surgery PENICILLINS 12/11/2006 7 - Swelling CHLORHEXIDINE 11/26/2018 2 - Rash Date Reviewed: 06/02/2024 Reviewed by: Mandie Beltran APRN.HOME INSURANCE AGENT - Fully Assessed Reason for Visit: Appointment [186] Prescriptions as of 06/05/2024 - insulin needles, DISPOSABLE, (PEN NEEDLE) 31 gauge x 5/16 Use one needle per dose four times per day. - insulin lispro (HUMALOG KWIKPEN INSULIN) 100 unit/mL Inject 8 Units subcutaneously three times a day before meals. Add 1 unit for each 50 mg/dl above 150 - atorvastatin (LIPITOR) 40 mg tablet Take 1 tablet by mouth daily at bedtime. - levothyroxine (SYNTHROID) 125 mcg tablet Take 1 tablet by mouth once daily. Take on empty stomach. For Thyroid - lisinopril (ZESTRIL) 40 mg tablet Take 1 tablet by mouth once daily. - metoprolol tartrate, short acting, (LOPRESSOR) 25 mg tablet Take 1 tablet by mouth every 12 hours. - amLODIPine (NORVASC) 10 mg tablet Take 1 tablet by mouth once daily. - ciprofloxacin HCl (CILOXAN) 0.3 % ophthalmic solution Use 1 Drop in the left eye four times daily. - cloNIDine HCl (CATAPRES) 0.3 mg tablet Take 1 tablet by mouth daily at bedtime. - SUMAtriptan (IMITREX) 50 mg tablet Take one tablet by mouth at onset of migraine. May repeat in 2 hours if ineffective - insulin detemir U-100 (LEVEMIR FLEXTOUCH U-100 INSULIN) 100 unit/mL (3 mL) injection pen Inject 48 Units subcutaneously daily at bedtime. - ferric citrate 210 mg iron tab Take 1 tablet by mouth once daily. - docusate sodium (COLACE) 100 mg capsule Take 1 capsule by mouth twice daily as needed for Constipation. - nitroglycerin sublingual (NITROQUICK) 0.4 mg SL tablet Dissolve 0.4 mg under the tongue every 5 minutes as needed. - NEPHRO-SONDRA 0.8 mg tab Take 1 tablet by mouth once daily. - blood sugar diagnostic (BLOOD GLUCOSE TEST) test strip Test blood sugar(s) 3 times daily. Dx: Type 2 DM - Uncontrolled E11.65 Insulin: Yes - Blood-Glucose Meter (BLOOD GLUCOSE MONITORING) monitoring kit 1 Each three times daily. E11.65. On insulin. - aspirin, enteric coated (ASPIRIN, ENTERIC COATED) 81 mg EC tablet Take 1 tablet by mouth once daily. Problem List As Of Date 06/04/2024 Noted Resolved Calculus of ureter [N20.1] 06/12/2007 03/22/2012 Urinary tract infection, site not specified [N3*06/12/2007 03/22/2012 Renal colic [N23] 06/12/2007 03/22/2012 Controlled type 2 diabetes mellitus without com*09/04/1985 HTN (hypertension) [I10] 09/04/2001 Hyperlipidemia [E78.5] 09/04/1999 Depression [F32.A] 09/04/2006 06/12/2023 Hypothyroid [E03.9] 03/30/2012 ASCVD (arteriosclerotic cardiovascular disease)*05/10/2012 Proteinuria [R80.9] 06/14/2013 CKD (chronic kidney disease) stage 3, GFR 30-59*07/17/2013 05/02/2017 CKD (chronic kidney disease) stage 4, GFR 15-29*04/05/2017 03/02/2018 CKD (chronic kidney disease) stage V requiring *03/01/2018 08/29/2019 ESRD on dialysis (HCC) [N18.6, Z99.2] 05/16/2019 VT (ventricular tachycardia) [I47.20] 05/17/2019 Steal syndrome dialysis vascular access (HCC) [*05/17/2019 02/23/2023 ESRD (end stage renal disease) (HCC) [N18.6] 04/21/2021 10/27/2023 Ventral hernia with obstruction, without gangre*12/09/2021 06/29/2023 Tubular adenoma of colon [D12.6] 11/15/2022 Hyperkalemia [E87.5] 06/20/2023 09/14/2023 Secondary hyperparathyroidism of renal origin (*06/20/2023 Abnormal EKG [R94.31] 06/20/2023 09/14/2023 Hypertrophic cardiomyopathy (HCC) [I42.2] 11/08/2023 Congestive heart failure (HCC) [I50.9] History of echocardiogram [Z92.89] 11/07/2023 History of stress test [Z92.89] 06/21/2023 Encounter for screening for stenosis of carotid*03/27/2023 Encounter Status:Closed by CELSA CHUNG on 06/05/24 ALLERGIES DATE TYPE / CODE NAME / CODE REACTION SEVERITY SOURCE 4 DRUG INGREDI/261036127( SNOMED CT) CODEINE [facility] 4 Drug Class/833357638(SN OMED CT) PENICILLINS [facility] 9 DRUG/717465884(SNO MED CT) ACETAMINOPHEN-CODE INE NandV [facility] 9 DRUG INGREDI/452308123( SNOMED CT) CHLORHEXIDINE RASH [facility] 9 DRUG INGREDI/750568518( SNOMED CT) CHLORHEXIDINE [facility] 07/19/201 2 DRUG INGREDI/303719898( SNOMED CT) LATEX HIVES [facility] 2 DRUG INGREDI~Environ/41 5726135(SNOMED CT) LATEX Hives [facility] 7 DRUG INGREDI/445698650( SNOMED CT) CODEINE GI UPSET [facility] 7 Drug Class/235082029(SN OMED CT) PENICILLINS SWELLING [facility] Drug Allergy/205784458( SNOMED CT) PENICILLINS (CLASS)/96577636(R XNORM) REDNESS, RASH, SWELLING; SOB, SWELLING Moderate (Severity Modifier) (Qualifier Value) [facility] Drug Allergy/082519664( SNOMED CT) CODEINE/05545962(R XNORM) RASH; VOMITING, NAUSEA Moderate (Severity Modifier) (Qualifier Value) [facility] Environmental Allergy/609345536( SNOMED CT) LATEX Moderate (Severity Modifier) (Qualifier Value) [facility] ENCOUNTERS ADMIT/DISCHARGE ACCOUNT NUMBER ADMITTING ENCOUNTER CLASS LOCATION SOURCE 05/13/2025/05/13/20 [id number] Ambulatory [facility] HospitalBuil ding:ART [facility] 04/17/2025/04/17/20 [id number] [facility] 02/20/2025/02/21/20 [id number] Ambulatory [id number] ilding:[facility] 02/06/2025/02/07/20 [id number] Ambulatory [facility] HospitalBuil ding:ART [facility] 01/13/2025/01/14/20 [id number] ANTHONY THOMAS Ambulatory [facility] HospitalBuil ding:[id number] m: [id number]: [id number] [facility] 01/02/2025/01/03/20 [id number] [facility] 12/27/2024/12/28/19 [id number] MILADYS SHELTON MD Ambulatory Building:[facility] 12/20/2024/12/21/19 [id number] Ambulatory Building:[facility] 12/20/2024/12/21/19 [id number] Ambulatory Building:[facility] 12/20/2024/12/21/19 [id number] Ambulatory Building:[facility] 12/05/2024/12/06/19 [id number] Ambulatory [facility] HospitalBuil ding:ART [facility] 12/03/2024/12/04/19 [id number] Ambulatory [facility] HospitalBuil ding:LORETTA [facility] 12/03/2024/12/04/19 [id number] Ambulatory [facility] HospitalBuil ding:BAUDILIO [facility] 11/26/2024/11/27/19 [id number] [place] [place]IC[place] [facility] 07/25/2024/07/25/20 24 [id number] [facility]25/[facility]24/07/25/20 24 [id number] [place] [id number] [facility] 07/23/2024/07/23/20 24 [id number] [place] [id number] [facility] 07/16/2024/07/16/20 24 [id number] [facility] 07/11/2024/07/11/20 24 [id number] [place] [id number] [facility] 07/11/2024/07/11/20 24 [id number] Ambulatory [facility] HospitalBuil ding:WODM [facility] 07/10/2024/07/10/20 24 [id number] Ambulatory [facility] HospitalBuil ding:ROBERTA [facility] 07/10/2024/07/10/20 24 [id number] Ambulatory [facility] HospitalBuil ding:PV40 [facility] 06/13/2024/06/13/20 24 [id number] Ambulatory [facility] HospitalBuil ding:ART [facility] 06/11/2024/06/11/20 [id number] Ambulatory [id number] ilding:VANESSA Martinez [facility] PAYERS ENCOUNTER GUARANTOR PAYER SUBSCRIBER SOURCE 05/13/2025 Primary Insuranc e:[facility] DUAL COMPLETE HMO POS SNPPolicy Number: [id number] Date:9349-39-10Bocu Name:Johnny GIORDANO: [id number] [place] [address] [facility] 05/13/2025 Secondary Insurance:[place] MEDICAIDPolicy Number: [id number] Date:1077-10-87Cyuh Name:Gloria GIORDANO: [id number] [place] [address] [facility] 04/17/2025 SANDY COVARRUBIASB: [place], [place] [address]Pal: () Primary Insurance:[facility] DUAL COMPLETEPolicy Number: [id number] Date:2022-09-04 SANDY COVARRUBIASB: [id number] [place] [address]Jym: () [facility] 02/20/2025 Primary Insuranc e:[facility] DUAL COMPLETE HMO POS SNPPolicy Number: [id number] Date:8195-11-24Quoi Name:Johnny GIORDANO: [id number] [place] [address] [facility] 02/20/2025 Secondary Insurance:[place] MEDICAIDPolicy Number: [id number] Date:6398-28-32Lwgb Name:Gloria GIORDANO: [id number] [place] [address] [facility] 02/06/2025 Primary Insuranc e:[facility] DUAL COMPLETE HMO POS SNPPolicy Number: [id number] Date:1437-48-54Ohfu Name:Johnny Oneill LUCRETIAMILYB: [id number] [place] [address] [facility] 02/06/2025 Secondary Insurance:[place] MEDICAIDPolicy Number: [id number] Date:8288-01-63Lusd Name:Gloria Oneill LUCRETIAMILYB: [id number] [place] [address] [facility] 01/13/2025 Primary Insuranc e:[facility] DUAL COMPLETE HMO POS SNPPolicy Number: [id number] Date:9247-16-83Cjzm Name:Johnny Oneill MARCIB: [id number] [place] [address] [facility] 01/13/2025 Secondary Insurance:[place] MEDICAIDPolicy Number: [id number] Date:1076-42-52Qovh Name:Gloria Oneill MARCIB: [id number] [place] [address] [facility] 01/02/2025 Primary Insuranc e:[facility] DUAL COMPLETE O POS SNPPolicy Number: [id number] Date:8004-08-10Ilho Name:Johnny Oneill MARCIB: [id number] [place] [address] [facility] 01/02/2025 Secondary Insurance:[place] MEDICAIDPolicy Number: [id number] Date:6113-28-75Kwjy Name:Gloria Oneill GIULIANA: [id number] [place] [address] [facility] 12/20/2024 SANDY PRESSLEY MARCIB: [place], [place] [address]Xjg: () Primary Insurance:[facility] DUAL COMPLETEPolicy Number: [id number] Date:2022-09-04 SANDY PRESSLEY MARCIB: [id number] [place] [address]Vsm: () [facility] 12/20/2024 Secondary Insurance:[employer] TRANSPL[employer] MEDICAREPolicy Number: [id number] Date:2023-08-04 SANDY PRESSLEY MARCIB: [id number] [place], [place] [address]Aef: () [facility] 12/20/2024 SANDY PRESSLEY MARCIB: [place], [place] [address]Yqd: () Primary Insurance:[facility] DUAL COMPLETEPolicy Number: [id number] Date:2022-09-04 SANDY PRESSLEY MARCIB: [id number] [place] [address]Mod: () [facility] 12/20/2024 Secondary Insurance:[employer] TRANSPLANT MEDICAREPolicy Number: [id number] Date:2023-08-04 SANDY PRESSLEY MARCIB: [id number] [place], [place] [address]Thh: () [facility] 12/20/2024 SANDY PRESSLEY MARCIB: [place], [place] [address]Isv: () Primary Insurance:[facility] DUAL COMPLETEPolicy Number: [id number] Date:2022-09-04 SANDY PRESSLEY MARCIB: [id number] [place] [address]Rvm: () [facility] 12/20/2024 Secondary Insurance:[employer] TRANSPLANT MEDICAREPolicy Number: [id number] Date:2023-08-04 SANDY KOCHYara COVARRUBIASB: [id number] [place], [place] [address]Rod: (HP) [facility] 12/05/2024 Primary Insurance:[place] MEDICAIDPolicy Number: [id number] Date:2096-55-94Wpjg Name:Gloria Oneill LUCRETIAMILYB: [id number] [place] [address] [facility] 12/05/2024 Secondary Insurance:[facility] DUAL COMPLETE HMO POS SNPPolicy Number: [id number] Date:2164-44-21Dwta Name:Johnny Oneill MARCIB: [id number] [place] [address] [facility] 12/03/2024 Primary Insuranc e:[facility] DUAL COMPLETE HMO POS SNPPolicy Number: [id number] Date:4669-72-35Byml Name:Johnny Oneill MARCIB: [id number] [place] [address] [facility] 12/03/2024 Secondary Insurance:[place] MEDICAIDPolicy Number: [id number] Date:9806-50-85Ddhd Name:Gloria Oneill MARCIB: [id number] [place] [address] [facility] 12/03/2024 Primary Insuranc e:[facility] DUAL COMPLETE HMO POS SNPPolicy Number: [id number] Date:2905-19-26Ujtb Name:Johnny Oneill MARCIB: [id number] [place] [address] [facility] 12/03/2024 Secondary Insurance:[place] MEDICAIDPolicy Number: [id number] Date:4441-76-41Moty Name:Gloria Oneill GIULIANA: [id number] [place] [address] [facility] 11/26/2024 SANDY PRESSLEY LAWRENCEDOB: [place], [place] [address]Hej: () Primary Insurance:[facility] DUAL COMPLETEPolicy Number: [id number] Date:2022-09-04 SANDY PRESSLEY MARCIB: [id number] [place] [address]Nus: (HP) [facility] 11/26/2024 Secondary Insurance:[employer] TRANSPLANT MEDICAREPolicy Number: [id number] Date:2023-08-04 SANDY PERSSLEY MARCIB: [id number] [place], [place] [address]Gjv: () [facility] 07/25/2024 SANDY KOCHYara COVARRUBIASB: [place], [place] [address]Yiv: () Primary Insurance:[employer] TRANSPLANT MEDICAREPolicy Number: [id number] Date:2023-08-04 SANDY PRESSLEY MARCIB: [id number] [place], [place] [address]Cpu: () [facility] 07/25/2024 SANDY KOCHYara GIORDANO: [place], [place] [address]Rrr: () Primary Insurance:[employer] TRANSPLANT MEDICAREPolicy Number: [id number] Date:2023-05-12 SANDY KOCHYara COVARRUBIASB: [id number] [place], [place] [address]Bwf: (HP) [facility] 07/25/2024 Secondary Insurance:MEDICAIDPol icy Number: [id number] Date:2023-05-05 SANDY PRESSLEY GIULIANA: [id number] [place], [place] [address]Xva: () [facility] 07/23/2024 SANDY HUAN COVARRUBIASB: [place], [place] [address]Cpq: (HP) Primary Insurance:[facility] DUAL COMPLETEPolicy Number: [id number] Date:2022-09-04 SANDY PRESSLEY GIULIANA: [id number] [place] [address]Stw: (HP) [facility] 07/16/2024 SANDY KOCHYara COVARRUBIASB: [place], [place] [address]Pkh: (HP) Primary Insurance:[employer] TRANSPLANT MEDICAREPolicy Number: [id number] Date:2023-05-12 SANDY PRESSLEY GIULIANA: [id number] [place], [place] [address]Qep: () [facility] 07/16/2024 Secondary Insurance:MEDICAIDPol icy Number: [id number] Date:2023-05-05 SANDY PRESSLEY MARCIB: [id number] [place], [place] [address]Xbp: () [facility] 07/11/2024 SANDY KOCHYara COVARRUBIASB: [place], [place] [address]Gjd: () Primary Insurance:[facility] DUAL COMPLETEPolicy Number: [id number] Date:2022-09-04 SANDY HUAN COVARRUBIASB: [id number] [place] [address]Tww: () [facility] 07/11/2024 Primary Insuranc e:[facility] DUAL COMPLETE HMO POS SNPPolicy Number: [id number] Date:6614-84-10Cehv Name:Johnny GIORDANO: [id number] [place] [address] [facility] 07/11/2024 Secondary Insurance:[place] MEDICAIDPolicy Number: [id number] Date:5783-73-50Edfw Name:Gloria Oneill MARCIB: [id number] [place] [address] [facility] 07/10/2024 Primary Insuranc e:[facility] DUAL COMPLETE HMO POS SNPPolicy Number: [id number] Date:6516-68-67Opun Name:Johnny Oneill MARCIB: [id number] [place] [address] [facility] 07/10/2024 Secondary Insurance:[place] MEDICAIDPolicy Number: [id number] Date:1701-22-18Obec Name:Gloria Oneill MARCIB: [id number] [place] [address] [facility] 07/10/2024 Primary Insuranc e:[facility] DUAL COMPLETE HMO POS SNPPolicy Number: [id number] Date:6082-81-23Pdru Name:Johnny Oneill MARCIB: [id number] [place] [address] [facility] 07/10/2024 Secondary Insurance:[place] MEDICAIDPolicy Number: [id number] Date:7730-19-46Htzy Name:Gloria Oneill MARCIB: [id number] [place] [address] [facility] 06/13/2024 Primary Insuranc e:[facility] DUAL COMPLETE HMO POS SNPPolicy Number: [id number] Date:7413-23-78Bnzu Name:Johnny Oneill MARCIB: [id number] [place] [address] [facility] 06/13/2024 Secondary Insurance:[place] MEDICAIDPolicy Number: [id number] Date:7627-39-28Gyjm Name:Gloria Oneill MARCIB: [id number] [place] [address] [facility] 06/11/2024 Primary Insuranc e:[facility] DUAL COMPLETE HMO POS SNPPolicy Number: [id number] Date:5014-36-72Wrko Name:Johnny GIORDANO: [id number] [place] [address] [facility] 06/11/2024 Secondary Insurance:[place] MEDICAIDPolicy Number: [id number] Date:5030-59-90Uafg Name:Gloria GIORDANO: [id number] [place] [address] [facility]
--- OUTSIDE RECORDS SUMMARY | 2025-05-13 08:44 | XMS RPT_ITS ---
Author Name Auto Generated Organization OHIP Support Name Relationship Address Phone DANTE BRAVO Next of Kin Unknown [phone] OTHER Next of Kin Unknown Unavailable DANTE BRAVO Next of Kin [address] [place] [address] Unavailable GENARO EUGENE Next of Kin [address] [place] [address] + NOT GIVEN Next of Kin Unknown Unavailable DANTE BRAVO Next of Kin Unknown [phone] OTHER Next of Kin Unknown Unavailable DANTE BRAVO Next of Kin Unknown [phone] OTHER Next of Kin Unknown Unavailable LAWRENCE, DANTE Next of Kin Unknown [phone] OTHER Next of Kin Unknown Unavailable LAWRENCE, DANTE Next of Kin Unknown [phone] OTHER Next of Kin Unknown Unavailable DANTE BRAVO Next of Kin Unknown [phone] OTHER Next of Kin Unknown Unavailable LAWRENCE, DANTE Next of Kin Unknown [phone] OTHER Next of Kin Unknown Unavailable LAWRENCE, DANTE Next of Kin Unknown [phone] OTHER Next of Kin Unknown Unavailable DANTE BRAVO Next of Kin Unknown [phone] OTHER Next of Kin Unknown Unavailable LAWRENCE, DANTE Next of Kin Unknown [phone] OTHER Next of Kin Unknown Unavailable Care Team Providers Care Juvenile Officer Name Role Phone ROLY MORALES Referring Unavailable MALDONADO DENNY Primary Care Unavailable MALDONADO DENNY Primary Care Unavailable EDITA CASTELLON Attending Unavailable MALDONADO DENNY Primary Care Unavailable EDITA CASTELLON Referring Unavailable ROLY MORALES Referring Unavailable MALDONADO DENNY Primary Care Unavailable DENNY, MALDONADO BRAXTON Primary Care Unavailable KADE JONES Attending Unavailable EDITA CASTELLON Referring Unavailable DENNY, MALDONADO BRAXTON Primary Care Unavailable DENNY, MALDONADO BRAXTON Primary Care Unavailable DENNY, MALDONADO BRAXTON Primary Care Unavailable DENNY, MALDONADO BRAXTON Primary Care Unavailable ROLY MORALES Referring Unavailable DENNY, MALDONADO BRAXTON Primary Care Unavailable EDUIN, MALDONADO Freeman Primary Care Unavailable MANDIE BELTRAN Attending Unavailable EDUIN, SHARRON Primary Care Unavailable FER DURON Attending Unavailable MILADYS SHELTON MD Attending UnaMILADYS Rosas MD Primary Care Unava MILADYS Nayak MD Admitting Unava ilMALDONADO Keane MD Consulting Unavailable PROVIDER, UNKNOWN Consulting Unavailable MALDONADO DENNY Attending Unavailable MALDONADO DENNY Primary Care Unavailable MALDONADO DENNY Attending Unavailable MALDONADO DENNY Primary Care Unavailable EDUIN, SHARRON Primary Care Unavailable MALDONADO DENNY Attending Unavailable ANTHONY THOMAS Referring Unavailable EDUIN, MALDONADO Freeman Primary Care Unavailable ANTHONY THOMAS Referring Unavailable EDUIN, MALDONADO Freeman Primary Care Unavailable ANTHONY THOMAS Attending Unavailable MALDONADO DENNY H Primary Care Unavailable JACEY GODINEZ Referring Unavailable EDUIN, SHARRON Primary Care Unavailable JACEY GODINEZ M Referring Unavailable JACEY GODINEZ M Referring Unavailable MALDONADO DENNY Primary Care Unavailable EDUIN, SHARRON Primary Care Unavailable MALDONADO DENNY Attending Unavailable MALDONADO DENNY H Primary Care Unavailable ANTHONY THOMAS Admitting Unavailable ANTHONY THOMAS Attending Unavailable MALDONADO DENNY Primary Care Unavailable ROBERT LALA Attending Unavailable PROBLEMS DATE TYPE CONDITION / CODE ATTENDING STATUS [facility] 01/18/2024 Active Other hyperlipid emia / E78.49(ICD-10) MALDONADO DENNY Active [facility] 06/20/2023 Active Hypothyroidism, unspecified type / E03.9(ICD-10) MALDONADO DENNY Active [facility] 05/13/2025 Active Physical deconditioning / R53.81(ICD-10) MALDONADO DENNY Active [facility] 05/13/2025 Active Encounter for immunization / Z23(ICD-10) MALDONADO DENNY Active [facility] 05/13/2025 Active Dyspnea on exert ion / R06.09(ICD-10) MALDONADO DENNY Active [facility] 05/13/2025 Active Need for vaccina tion / Z23(ICD-10) MALDONADO DENNY Active [facility] 01/18/2024 Active Hyperlipidemia, unspecified hyperlipidemia type / E78.5(ICD-10) [facility] Active Diastolic conges tive heart failure, unspecified HF chronicity (HCC) / I50.30(ICD-10) OLIVERIO [facility] 02/20/2025 Active Stage 5 chronic kidney disease on chronic dialysis (HCC) / N18.6(ICD-10) [facility] Active Stage 5 chronic kidney disease on chronic dialysis (HCC) / Z99.2(ICD-10) [facility] Active Abnormal EKG / R94.31(ICD-10) [facility] 02/20/2025 Active ASHD (arteriosclerotic heart disease) / I25.10(ICD-10) OLIVERIO [facility] 02/06/2025 Active Hypoxia / R09.02(ICD-10) MALDONADO DENNY Active [facility] 02/06/2025 Active Anemia of chroni c renal failure, stage 5 (HCC) / N18.5(ICD-10) MALDONADO DENNY Active [facility] 02/06/2025 Active Anemia of chroni c renal failure, stage 5 (HCC) / D63.1(ICD-10) MALDONADO DENNY Active [facility] 01/18/2024 Active ESRD on dialysis (HCC) / N18.6(ICD-10) MALDONADO DENNY Active [facility] 01/18/2024 Active ESRD on dialysis (HCC) / Z99.2(ICD-10) MALDONADO DENNY [facility] 01/18/2024 Active Controlled type 2 diabetes mellitus without complication, with long-term current use of insulin (HCC) / E11.9(ICD-10) ROBERT LALA [facility] 01/18/2024 Active Controlled type 2 diabetes mellitus without complication, with long-term current use of insulin (HCC) / Z79.4(ICD-10) SPIKE ROBERT [facility] 01/02/2025 Active Status post corn eal transplant / Z94.7(ICD-10) SPIKE [facility] 12/20/2024 Admitting Diagnosis Erosion and ectropion of cervix uteri / N86(ICD-10) [facility] 12/20/2024 Admitting Diagnosis Type 2 diabetes mellitus with unspecified complications / E11.8(ICD-10) [facility] 12/03/2024 Active Abnormal screeni ng mammogram / R92.8(ICD-10) [facility] 07/25/2024 Admitting Diagnosis End stage renal disease (Multi) / N18.6(ICD-10) KADE JONES [facility] 07/25/2024 Admitting Diagnosis Encounter for therapeutic drug level monitoring / Z51.81(ICD-10) KADE JONES [facility] 07/25/2024 Admitting Diagnosis Personal history of transient ischemic attack (TIA), and cerebral infarction without residual deficits / Z86.73(ICD-10) [facility] 07/25/2024 Admitting Diagnosis Other specified symptoms and signs involving the circulatory and respiratory systems / R09.89(ICD-10) [facility] 07/23/2024 Admitting Diagnosis Atherosclerotic heart disease of [place] coronary artery without angina pectoris / I25.10(ICD-10) EDITA CASTELLON [facility] 07/23/2024 Admitting Diagnosis Awaiting organ transplant status / Z76.82(ICD-10) EDITA CASTELLON [facility] 07/23/2024 Admitting Diagnosis Encounter for preprocedural cardiovascular examination / Z01.810(ICD-10) EDITA CASTELLON [facility] 07/23/2024 Admitting Diagnosis Hypertensive heart disease without heart failure / I11.9(ICD-10) EDITA CASTELLON Radha [facility] 07/11/2024 Admitting Diagnosis Encounter for other preprocedural examination / Z01.818(ICD-10) NA [facility] 07/11/2024 Active Encounter for screening mammogram for breast cancer / Z12.31(ICD-10) NA [facility] 06/02/2024 Active History of echocardiogram / Z92.89(ICD-10) [facility] 01/18/2024 Active Mixed hyperlipid emia / E78.2(ICD-10) [facility] 01/18/2024 Active Primary hyperten ritika / I10(ICD-10) [facility] 11/09/2023 Active Congestive heart failure, unspecified HF chronicity, unspecified heart failure type (HCC) / I50.9(ICD-10) [facility] 07/18/2023 Active ASCVD (arteriosclerotic cardiovascular disease) / I25.10(ICD-10) [facility] 06/11/2024 Active History of cardiovascular stress test / Z92.89(ICD-10) [facility] 06/11/2024 Active History of left heart catheterization (LHC) / Z98.890(ICD-10) [facility] 06/11/2024 Active History of carot id artery stenosis / Z86.79(ICD-10) [facility] 06/11/2024 Active History of diabe ericka mellitus / Z86.39(ICD-10) [facility] 06/11/2024 Active Former smoker / Z87.891(ICD-10) [facility] PROCEDURES No Procedure Records Found RESULTS PROGRESS Observed: 05/13/2025 9:40 AM Status: COMPLETED Source: [facility] Author: MALDONADO DENNY MD Service: ? Author Type: Physician Type: Progress Notes Filed: 05/13/2025 09:51 Note Text: Subjective Sandy Bravo is a 60 year old female here with spouse She had a 6 minute walk test for pre kidney transplant evaluation at [facility] on 04/17/25. She walked 198 m [...] Hypertensive Left Ventricular Hypertrophy With Heart Failure (Hcc) Current Outpatient Medications Medication Sig metoprolol tartrate, [...] Observed: 05/13/2025 9:00 AM Status: COMPLETED Source: [facility] Office Visit (INTMWS) SANDY BRAVO ([id number]) 1965 F Date Time Provider Department 05/13/25 [...] test for pre kidney transplant evaluation at [facility] on 04/17/25. She walked 198 m [...] Ventricular Hypertrophy With Heart Failure ([facility]) Current Outpatient Medications Medication Sig [...] 6MO-64YR, TRIVALENT (AFLURIA, FLUARIX, FLULAVAL, FLUVIRIN, FLUZONE) [[id number]] Order #: [id number] amLODIPine (NORVASC) 10 mg tabletTake 1 tablet [...] 90 tabletRfl: 1 CONSULT TO PHYSICAL THERAPY [9075] Order #: [id number]: 1 FUTURE HEP B VACCINE, 3-DOSE, AGE 20+ YR (ENGERIX-B, RECOMBIVAX HB) [71135DBI] Order #: [id number] Prescriptions as of 05/13/2025 - amLODIPine (NORVASC) [...] [*05/17/2019 02/23/2023 ESRD (end stage renal disease) ([facility]) [N18.6] 04/21/2021 10/27/2023 Ventral hernia with obstruction, without gangre*12/09/2021 06/29/2023 Tubular adenoma of colon [D12.6] 11/15/2022 Hyperkalemia [E87.5] 06/20/2023 09/14/2023 Secondary hyperparathyroidism of renal origin (*06/20/2023 Abnormal EKG [R94.31] 06/20/2023 Hypertrophic cardiomyopathy ([facility]) [I42.2] 11/08/2023 Congestive heart failure ([facility]) [I50.9] History of echocardiogram [Z92.89] 11/07/2023 History of stress test [Z92.89] 06/21/2023 Encounter for screening for stenosis of carotid*03/27/2023 Arteriovenous fistula, acquired ([facility]) [I77.0] 06/13/2024 Peripheral arterial disease ([facility]) [I73.9] 07/10/2024 Migraine without aura, not intractable, without*05/21/2021 Anemia of chronic renal failure, stage 5 ([facility]) *02/06/2025 Hypoxia [R09.02] 02/06/2025 Hypertensive left ventricular [...] daily. Level of Service: OFFICE/OUTPATIENT ESTABLISHED MOD [facility] 30 MIN [27722] Additional E/M codes: VISIT CPLX INHERENT EANDM ASSOC WITH MED * Follow-up and Disposition History for Encounter Date Provider Department Center 05/13/2025 [id number] DENNY [facility] Encounter Status:Closed by MALDONADO DENNY on 05/13/25 [facility] Observed: 04/23/2025 12:00 AM Status: COMPLETED Source: [facility] Telephone (INTMWS) SANDY BRAVO ([id number]) 1965 F Date Time Provider Department 04/23/25 MALDONADO DENNY During your visit today, we recorded the following information about you: Chris Pierce, RN 04/23/2025 1:24 PM Signed Pt reports [...] Observed: 02/20/2025 9:00 AM Status: COMPLETED Source: [facility] HNO ID: [id number] Author: FER DURON MD Service: ? Author [...] kidney disease) stage V requiring chronic dialysis ([facility]) 03/01/2018 Dr. Pendleton, nephrology. Congestive heart failure ([facility]) Constipation Depression 09/04/2006 Encounter for screening for stenosis of carotid artery 03/27/2023 Less then 50% calcification bilaterally. ESRD on dialysis ([facility]) 05/16/2019 GERD (gastroesophageal reflux disease) Hemorrhoids History [...] COLONOSCOPY SCREENING 11/15/2022 COLOSTOMY/SKIN LEVEL CECOSTOMY 2007 [id number], reversed 2006 CREATION OF AVF, PERCUTANEOUS USING [...] lung cancer Coronary Artery Disease Brother dec. [place] 57 y.o. No Known Problems Maternal Grandmother [...] complication, with long-term current use of insulin ([facility]) - ICD9: 250.80, V58.67, ICD10: E11.69, Z79.4 Goal is to maintain her hemoglobin A1c less than 7. Fer Duron MD [facility] Follow-up in 3 months Prior to entering [...] 51% of my time was spent with afze-fs-xcwa conversation with the patient. I have discussed the diagnosis and recommended treatment, alternative therapies and other options in detail. I've discussed the best benefit and side effects of these recommended treatments. I've attempted to answer all the questions to the patient's satisfaction and understanding. Fer Duron MD CNOV Observed: 02/20/2025 9:00 AM Status: COMPLETED Source: [facility] Office Visit (CAUNDO) SANDY BRAVO ([id number]) 1965 F Date Time Provider Department 02/20/25 [...] kidney disease) stage V requiring chronic dialysis ([facility]) 03/01/2018 Dr. Pendleton, nephrology. Congestive heart failure ([facility]) Constipation Depression 09/04/2006 Encounter for screening for stenosis of carotid artery 03/27/2023 Less then 50% calcification bilaterally. ESRD on dialysis ([facility]) 05/16/2019 GERD (gastroesophageal reflux disease) Hemorrhoids History [...] COLONOSCOPY SCREENING 11/15/2022 COLOSTOMY/SKIN LEVEL CECOSTOMY [phone], reversed 2006 CREATION OF AVF, PERCUTANEOUS USING [...] lung cancer Coronary Artery Disease Brother dec. [place] 57 y.o. No Known Problems Maternal Grandmother [...] 5 chronic kidney disease on chronic dialysis ([facility]) - ICD9: 585.6, V45.11, ICD10: N18.6, Z99.2 (primary diagnosis) Patient to continue on hemodialysis and follow-up with nephrology as scheduled. 2. Diastolic congestive heart failure, unspecified HF chronicity ([facility]) - ICD9: 428.30, 428.0, ICD10: I50.30 Recent [...] complication, with long-term current use of insulin ([facility]) - ICD9: 250.80, V58.67, ICD10: E11.69, Z79.4 Goal is to maintain her hemoglobin A1c less than 7. Fer Duron MD [facility] Follow-up in 3 months Prior to entering [...] 51% of my time was spent with [id number]-[id number] conversation with the patient. I have discussed [...] 5 chronic kidney disease on chronic dialysis ([facility]) [N18.6, Z99.2] Other Visit Diagnoses:Diastolic congestive heart failure, unspecified HF chronicity ([facility]) [I50.30] Hypertensive left ventricular hypertrophy with heart failure ([facility]) [I11.0] Primary hypertension [I10] Abnormal EKG [R94.31] Hyperlipidemia, unspecified hyperlipidemia type [E78.5] Type 2 diabetes mellitus with other specified complication, with long-term current use of insulin ([facility]) [E11.69, Z79.4] Order(s):ECG COMPLETE [ECG01] Order #: [id number]. #:[id number] cloNIDine HCl (CATAPRES) 0.1 mg tabletTake 1 [...] V requiring *03/01/2018 08/29/2019 ESRD on dialysis ([facility]) [N18.6, Z99.2] 05/16/2019 VT (ventricular tachycardia) [I47.20] 05/17/2019 Steal syndrome dialysis vascular access ([facility]) [*05/17/2019 02/23/2023 ESRD (end stage renal disease) ([facility]) [N18.6] 04/21/2021 10/27/2023 Ventral hernia with obstruction, without gangre*12/09/2021 06/29/2023 Tubular adenoma of colon [D12.6] 11/15/2022 Hyperkalemia [E87.5] 06/20/2023 09/14/2023 Secondary hyperparathyroidism of renal origin (*06/20/2023 Abnormal EKG [R94.31] 06/20/2023 09/14/2023 Hypertrophic cardiomyopathy ([facility]) [I42.2] 11/08/2023 Congestive heart failure ([facility]) [I50.9] History of echocardiogram [Z92.89] 11/07/2023 History of stress test [Z92.89] 06/21/2023 Encounter for screening for stenosis of carotid*03/27/2023 Arteriovenous fistula, acquired ([facility]) [I77.0] 06/13/2024 Peripheral arterial disease ([facility]) [I73.9] 07/10/2024 Migraine without aura, not intractable, without*05/21/2021 Anemia of chronic renal failure, stage 5 ([facility]) *02/06/2025 Hypoxia [R09.02] 02/06/2025 Prescriptions ordered this encounter Disp Refills Start End CLONIDINE HCL 0.1 MG TABLET 30 t* 5 02/20/2025 Route: PO Sig: Take 1 tablet by mouth daily at bedtime. Level of Service: OFFICE/OUTPATIENT ESTABLISHED HIGH MDM 40 MIN [67294] Additional E/M codes: VISIT CPLX INHERENT EANDM ASSOC WITH MED * Encounter Status:Closed by FER DURON on 02/21/25 ECG COMPLETE Observed: 02/20/2025 9:00 AM Status: F Source: [facility] Ventricular Rate : 68 BPM Atrial Rate : 68 BPM P-R Interval : 170 ms QRS Duration : 132 ms Q-T Interval : 462 ms QTC Calculation(Bazett) : 491 ms Calculated P Wann : 42 degrees Calculated R Wann : -50 degrees Calculated T Wann : 106 degrees Normal sinus rhythm Right bundle branch block Left anterior fascicular block Bifascicular block Questionable change in initial forces of Lateral leads Confirmed by DAVE LAKE DO ([id number]) on 02/23/2025 5:06:36 PM NAME : SANDY BRAVO PID : [id number] : 1965 Gender : Female Race : ORD : [id number] Procedure Date : Feb 20 2025 09:00:55 Edit Date : Feb 23 2025 17:06:38 Diagnosis: Normal sinus rhythm Right bundle branch block Left anterior fascicular block Bifascicular block Questionable change in initial forces of Lateral leads Confirmed by DAVE LAKE DO ([id number]) on 02/23/2025 5:06:36 PM Test Reason : HCS Location : 2 : [place] Overread By : DAVE LAKE DO Edited By : DAVE LAKE DO Referred By : , Acquired by : [id number], PROGRESS Observed: 02/06/2025 11:49 AM Status: COMPLETED Source: [facility] Author: MALDONADO DENNY MD Service: ? Author Type: Physician Type: Progress Notes Filed: 02/06/2025 12:48 Note Text: This note was created using [employer]. Subjective Patient presents with: Hospital F/U Recording using [employer] software for draft documentation of the visit was discussed with the patient/authorized authorization representative; all questions welcomed and answered. Patient/authorized authorization representative agreed to proceed Sandy Bravo is a 60 year old female. Pulmonary Edema: - Hospitalized at [facility] last Monday for severe dyspnea; initially [...] the feet. CHF: - Followed by a scarfer in [place]; has an upcoming appointment. [...] Observed: 02/06/2025 11:40 AM Status: COMPLETED Source: [facility] Office Visit (INTMWS) SANDY BRAVO ([id number]) 1965 F Date Time Provider Department 02/06/25 11:40 AM MALDONADO DENNY INTMWS During your visit today, we recorded the following information about you: Temperature Pulse Blood pressure Weight 98.3 degrees 68/minute 124/60 58.9 kg Maldonado Denny MD 02/06/2025 12:48 PM Signed This note was created using [employer]. Subjective Patient presents with: Hospital F/U Recording using [employer] software for draft documentation of the visit was discussed with the patient/authorized authorization representative; all questions welcomed and answered. Patient/authorized authorization representative agreed to proceed Sandy Bravo is a 60 year old female. Pulmonary Edema: - Hospitalized at [facility] last Monday for severe dyspnea; initially [...] the feet. CHF: - Followed by a scarfer in [place]; has an upcoming appointment. [...] unspecified HF chronicity, unspecified heart failure type ([facility]) [I50.9] Other Visit Diagnoses:ESRD on dialysis ([facility]) [N18.6, Z99.2] Anemia of chronic renal failure, stage 5 ([facility]) [N18.5, D63.1] Hypoxia [R09.02] Prescriptions as of [...] Service: OFFICE/OUTPATIENT ESTABLISHED MOD MDM 30 MIN [22021] Additional E/M codes: VISIT CPLX INHERENT EANDM ASSOC WITH MED * Disposition: Return if symptoms worsen or fail to improve. Follow-up and Disposition History for Encounter Date Provider Department Center 02/06/2025 [id number] DENNY [facility] Encounter Status:Closed by MALDONADO DENNY on 02/06/25 BRIEF OP NOT Observed: 01/13/2025 7:19 PM Status: COMPLETED Source: [facility] Author: PONCHO BAUTISTA MD Service: Vascular Surgery Author Type: Resident Type: Brief Op Note Filed: 01/13/2025 19:23 Note Text: BRIEF OPERATIVE / PROCEDURE NOTE LOG ID: [id number] Surgery/Procedure Date: 01/13/2025 Incision/Procedure Start Time: 6:37 PM Incision Close/Procedure End Time: 7:19 PM Surgeon(s)/Proceduralist(s) and Rubber Goods Tester(s): Surgeons and Role: * Anthony Thomas MD - Primary * Poncho Bautista MD - Resident - Assisting No Additional Staff Procedure(s): - Direct access of right upper extremity loop arteriovenous graft - Diagnostic fistulogram - Venoplasty of central graft stenosis w/ 8x80 Conquest Venoplasty of proximal central stent stenosis w/ 8x80 Conquest - Venoplasty of distal central stent with 8x80 [place] ROBERTA Angio: Access: Closure: 3-0 Prolene suture Contrast: 30mL Fluorotime: 4.5 min, 22 mGy Anesthesia: Procedural Sedation ASA Class: ASA Class: 3 Findings: Pulsatile thrill in AVG. Fistulogram revealed an area of stenosis within the central graft along the outflow track. This was treated with 8x80 Conquest. The central innominate vein stent was then treated with 8x80 Conquest and [place] balloons. Improved thrill, decreased pulsatility, and improved [...] note) SIGNATURE: Poncho Bautista MD PATIENT NAME: Sadny Bravo DATE: January 13, 2025 TIME: 7:19 PM NURSING PROG Observed: 01/13/2025 3:25 PM Status: COMPLETED Source: [facility] HNO ID: [id number] Author: SHARI LYNN RN Service: Nursing Author [...] Observed: 01/13/2025 12:00 AM Status: COMPLETED Source: [facility] HNO ID: [id number] Author: ANTHONY TOHMAS MD Service: Vascular Surgery Author Type: Physician Type: Operative Report Filed: 02/07/2025 13:08 Note Text: [facility] - Operative Report [address] [address] [place] SANDY BRAVO : 1965 AGE: 59. SEX: F PATIENT TYPE: A HOSP SVC: VSS LOCATION: [id number] ATTENDING PHYSICIAN: Anthony Thomas M.D. CSN NUMBER: [id number] DATE OF SURGERY/PROCEDURE: 01/13/2025 INCISION/PROCEDURE START TIME: 6:37 PM INCISION CLOSE/PROCEDURE END TIME: 7:21 PM PREOPERATIVE DIAGNOSIS: Right arm swelling, elevated central venous pressure. POSTOPERATIVE DIAGNOSIS: Right arm swelling, elevated central venous pressure. SURGEON: Anthony Thomas M.D. HAT DESIGNER: Poncho Richey. SURGERY/PROCEDURE: 1. Direct access right [...] towards the venous outflow. After placing a 7-Icelandic sheath, we advanced the catheter wire to [...] assistance of Dr. Richey. Anthony Thomas M.D. LK:[id number] /[id number] CNPN Observed: 01/10/2025 12:00 AM Status: COMPLETED Source: [facility] Telephone (3sunN) SANDY BRAVO ([id number]) 1965 F Date Time Provider Department 01/10/25 [...] Observed: 01/02/2025 3:21 PM Status: COMPLETED Source: [facility] HNO ID: [id number] Author: ROBERT LALA MD Service: ? Author [...] Pseudophakia, OS DMEK, OS -S/p CEIOL 02/2023 ([facility]) -Lost vision few days after CEIOL -DMEK [...] others. I have seen and examined Sandy Bravo. I have discussed the case and the management of this patient's care with the Resident/Fellow, if applicable. I also have reviewed and agree with the assessment and plan as stated above and agree with all of its relevant components. CNPN Observed: 01/01/2025 12:00 AM Status: COMPLETED Source: [facility] Telephone (VASSMN) SANDY BRAVO ([id number]) 1965 F Date Time Provider Department 01/01/25 [...] we understand that she has HD on [facility], so we can see if one of [...] Observed: 01/01/2025 12:00 AM Status: COMPLETED Source: [facility] Telephone (VASSMN) SANDY BRAVO ([id number]) 1965 F Date Time Provider Department 01/01/25 [...] Observed: 12/31/2024 12:00 AM Status: COMPLETED Source: [facility] ([facility]) SANDY BRAVO ([id number]) 1965 F Date Time Provider Department 12/31/24 RACHEL HIGUERA [facility] During your visit today, we recorded the [...] Assessed Reason for Visit: Procedure [88] Cmt: RUE fistulogram Prescriptions as of 12/31/2024 - amLODIPine [...] Observed: 12/30/2024 12:00 AM Status: COMPLETED Source: [facility] Telephone (VASIVYN) SANDY BRAVO ([id number]) 1965 F Date Time Provider Department 12/30/24 ANTHONY THOMAS During your visit today, we recorded the following information about you: Rabia Coles 12/30/2024 10:26 AM Signed Referral from [facility] for the patient to be scheduled for a fistulagram due to high venous pressure and cannulation issues. Referral has been scanned into the patient's chart. Vita Purdy RN 12/30/2024 2:52 PM Signed Spoke with patient. Agrees to fistulogram Monday 01/[address] Higuera at [facility]. JESSICA Gorman Allergies As of Date: 12/30/2024 [...] by RABIA COLES on 12/30/24 BUN Collected: 5 9:13 AM Status: F Source: [facility] TYPE CODE TESTS RESULT OUT OF RANGE REFERENCE UNITS LAB BUN(LOINC) BUN 7 7 - 18 mg/dl Performed By: #### [id number] ## ## [place] [address] POTASSIUM Collected: 5 5:40 AM Status: F Source: [facility] TYPE CODE TESTS RESULT OUT OF RANGE REFERENCE UNITS LAB POTASSIUM(LOINC) POTASSIUM 4.5 3.5 - 5.1 mmo l/L Performed By: #### [id number] ## ## [place] [address] CBC + DIFF Collected: 5 5:40 AM Status: F Source: [facility] TYPE CODE TESTS RESULT OUT OF RANGE [...] 4.35 1.50 - 7.10 x10EE3 /UL LAB Jones #(LOINC) Jones # 0.38 0.20 - 1.00 x10EE3 /UL [...] MORPHOLOGY(BENEDICTO NC) MORPHOLOGY NORMAL Performed By: #### [id number] ## ## [facility],[address] [place] [address] HEP B SURFACE AG [CCL] Collected: 12/27/2024 5:40 AM Status: F Source: [facility] TYPE CODE TESTS RESULT OUT OF RANGE REFERENCE UNITS LAB HBSAG(LOINC) Hepatitis B Surf. Ag Negative Negative Result Comment: [facility] in Laboratories [address] [place] [address] lCifton Nathan III, M.D. [id number] Performed By: #### [id number] ## ## [facility],[address] [place], [place] [id number] BUN Collected: 5:40 AM Status: F Source: [facility] TYPE CODE TESTS RESULT OUT OF RANGE REFERENCE UNITS LAB BUN(LOINC) BUN 31 High 7 - 18 mg/dl Performed By: #### [id number] ## ## [facility],[address] [place], [place] [id number] HBV SURFACE AG SER QL Collected: 12/27/2024 5:40 AM Status: F Source: [facility] Order Comment: Specimen Type : BLOOD SPECIMEN Ordering Facility: [facility] Address: [address] [place] [address] TYPE CODE TESTS RESULT OUT OF RANGE REFERENCE UNITS LAB 5195-3(LOINC) HBV surface Ag Ser Ql Negative Negative Performed By: #### 5195-3 ## ## [facility] CLIA [id number] [address] [place] [address] [place] CNPN Observed: 12/26/2024 12:00 AM Status: COMPLETED Source: [facility] Telephone (UYLIN) SANDY BRAVO ([id number]) 1965 F Date Time Provider Department 12/26/24 [...] patient is asking if someone can send [facility] a fax? (Not sure what [...] Collected: 12/19/2024 2:37 PM Status: F Source: [facility] TYPE CODE TESTS RESULT OUT OF RANGE REFERENCE UNITS LAB 6690-2(LOINC) Leukocytes 4.7 4.4-11.3 x10*3/ uL LAB 71670-0(LOINC) Erythrocytes.nuc l eated/100 leukocytes 0.0 0.0-0.0 /100 [...] Platelets 200 150-450 x10*3/uL Performed By: #### 22358-6 # ### LEVI Garcia ([id number]) [facility] ([facility]) [address] [place] [address] HEMOGLOBIN A1C/HEMOGLOBIN.TOTAL Collect ed: 12/19/2024 2:37 PM Status: F Source: [facility] Order Comment: Diagnosis of Diabetes-Adults Non-Diabetic: < or = 5.6% Increased risk for developing diabetes: 5.7-6.4% Diagnostic of diabetes: > or = 6.5% TYPE CODE TESTS RESULT OUT OF RANGE REFERENCE UNITS LAB 4548-4(LOINC ) Hemoglobin A1c/Hemoglob in.total 6.8 High See comment % LAB 86102-2(LOIN C) Estimated average glucose 148 Not Established mg/dL Performed By: #### 4548-4 ## ## LEVI Garcia ([id number]) [facility] ([facility]) [address] [place] [address] 99263 PHOSPHATE Collected: 2:37 PM Status: F Source: [facility] TYPE CODE TESTS RESULT OUT OF [...] By: #### 2777-1 ## ## LEVI Garcia ([id number]) [facility] ([facility]) [address] [place] [address]28[address] UREA NITROGEN Collected: 12/19/2024 2:37 PM Status: F Source: [facility] TYPE CODE TESTS RESULT OUT OF RANGE REFERENCE UNITS LAB 3094-0(LOINC) Urea nitrogen 21 6-23 mg/d L Performed By: #### 3094-0 ## ## LEVI Garcia ([id number]) [facility] ([facility]) [address] [place] [address] 28052 HEPATIC FUNCTION 2000 PANEL Collected: 12/19/2024 2:3 7 PM Status: F Source: [facility] TYPE CODE TESTS RESULT OUT OF RANGE REFERENCE UNITS LAB 72691-9(LOINC ) Albumin 4.0 3.4-5.0 g/dL LAB 1974-2(LOINC) Bilirubin 0.5 0.0-1.2 mg/dL LAB 1967-7(LOINC) Bilirubin.glucur mojgan dated+Bilirubin.alb umin bound 0.1 0.0-0.3 mg/dL LAB 6768-6(LOINC) Alkaline phosphatase 160 High 33-136 U/L LAB 1743-4(LOINC) Alanine aminotransferase 12 7-45 U/L Result Comment: Patients chapo ated with Sulfasalazine may generate falsely decreased results for ALT. LAB 07342-4(LOINC ) Aspartate aminotransferase 22 9-39 U/L LAB 2885-2(LOINC) Protein 6.5 6.4-8.2 g/dL Performed By: #### 37561-5 # ### LEVI Garcia ([id number]) [facility] ([facility]) [address] [place], [place] [id number] CREATININE Collected: 2:37 PM Status: F Source: [facility] TYPE CODE TESTS RESULT OUT OF RANGE REFERENCE UNITS LAB 2160-0(LOINC) Creatinine 5.09 High 0.50-1.05 mg/dL LAB 08584-1(LOINC) Glomerular filtration rate/1.73 sq M.predicted 9 Low >60 mL/min/1 .73m*2 Result Comment: Calculations of estimated GFR are performed using the 2020 CKD- EPI Study Refit equation without the race variable for the IDMS-Traceable creatinine methods. https://jasn.asnjournals.org/content/early//ASN.5435011529 Performed By: #### 2160-0 ## ## LEVI Garcia ([id number]) [facility] ([facility]) [address] [place] [address]35 AMYLASE Collected: 5 2:37 PM Status: F Source: [facility] TYPE CODE TESTS RESULT OUT OF RANGE REFERENCE UNITS LAB 1798-8(LOINC) Amylase 23 Low 29-103 U/L Performed By: #### 1798-8 ## ## LEVI Garcia ([id number]) [facility] ([facility]) [address] [place] [id number] LIPID PANEL NON-FASTING Collected: 12/19/2024 2:37 PM Status: F Source: [facility] TYPE CODE TESTS RESULT OUT OF [...] By: #### LIPIN ### # LEVI Garcia ([id number]) [facility] ([facility]) [address] [place] [address] HEPATITIS B VIRUS SURFACE AB Collected: 12/19/2024 2:37 PM Status: F Source: [facility] TYPE CODE TESTS RESULT OUT OF RANGE REFERENCE UNITS LAB 64523-7(LOINC) Hepatitis B virus surface Ab 134.9 High <10.0 mIU/mL Result Comment: Interpretive Criteria: <10 mIU/mL Nonreactive >=10 mIU/mL Reactive Biotin interference may cause falsely decreased results. Patients taking a Biotin dose of up to 5 mg/day should refrain from taking Biotin for 24 hours before sample collection. Providers may contact their local laboratory for further information. Performed By: #### 49725-1 # ### LEVI Garcia ([id number]) [facility] ([facility]) [address] [place] [address] HEPATITIS B VIRUS SURFACE AG Collected: 12/19/2024 2:37 PM Status: F Source: [facility] TYPE CODE TESTS RESULT OUT OF RANGE REFERENCE UNITS LAB 5196-1[facility] Hepatitis B virus surface Ag Nonreactive Nonreactive Result Comment: Biotin inter ference may cause falsely decreased results. Patients taking a Biotin dose of up to 5 mg/day should refrain from taking Biotin for 24 hours before sample collection. Providers may contact their local laboratory for further information. Performed By: #### 5196-1 ## ## LEVI Garcia ([id number]) [facility] ([facility]) [address] [place] [address] HIV 1+2 AB+HIV1 P24 AG Collected: 12/19 2:37 PM Status: F Source: [facility] Order Comment: HIV Ag/Ab scr een is [...] RESULT OUT OF RANGE REFERENCE UNITS LAB 79822-8(INC) HIV 1+2 Ab+HIV1 p24 Ag Nonreactive Nonreactive Performed By: #### 75387-5 # ### LEVI Garcia ([id number]) [facility] ([facility]) [address] [place] [address] HEPATITIS C VIRUS AB Collected: 2:37 PM Status: F Source: [facility] TYPE CODE TESTS RESULT OUT OF RANGE REFERENCE UNITS LAB 24042-3(LOINC) Hepatitis C virus Ab NON-REACTIVE Nonreactive Result Comment: Results from patients taking biotin supplements or receiving high-dose biotin therapy should be interpreted with caution due to possible interference with this test. Providers may contact their local laboratory for further information. Performed By: #### 65325-4 # ### LEVI Garcia ([id number]) [facility] ([facility]) [address] [place] [address] HEPATITIS B VIRUS CORE AB Collected: 12/19/2024 2:37 PM Status: F Source: [facility] TYPE CODE TESTS RESULT OUT OF RANGE REFERENCE UNITS LAB 10118-7(LOINC) Hepatitis B virus core Ab Nonreactive Nonreactive Performed By: #### 16293-8 # ### LEVI Garcia ([id number]) [facility] ([facility]) [address] [place] [address] COAGULATION TISSUE FACTOR INDUCED Collected: 12/19/2024 2:37 PM Status: F Source: [facility] TYPE CODE TESTS RESULT OUT OF RANGE REFERENCE UNITS LAB 5902-2(LOINC) Coagulation tissue factor induced 10.2 9.8-12.4 seconds LAB 6301-6(LOINC) Coagulation tissue factor induced.INR 0.9 0.9-1.1 NA Performed By: #### 5902-2 ## ## LEVI Garcia ([id number]) [facility] ([facility]) [address] [place] [address] CYTOMEGALOVIRUS AB.IGG AVIDITY Collected: 12/19/2024 2:37 PM Status: F Source: [facility] TYPE CODE TESTS RESULT OUT OF RANGE REFERENCE UNITS LAB 68584-7(LOIN C) Cytomegalovirus Ab.IgG avidity Reactive Abnormal Nonreactive Performed By: #### 70928-7 # ### LEVI Garcia ([id number]) [facility] ([facility]) [address] [place] [address] C PEPTIDE Collected: 2:37 PM Status: F Source: [facility] TYPE CODE TESTS RESULT OUT OF RANGE REFERENCE UNITS LAB 1985-9(LOINC) C peptide 1.5 0.7-3.9 ng/mL Performed By: #### 1986-9 ## ## LEVI Garcia ([id number]) [facility] ([facility]) [address] [place] [address] ABO Collected: 2:37 PM Status: F Source: [facility] TYPE CODE TESTS RESULT OUT OF RANGE REFERENCE UNITS LAB 883-9(LOINC) ABO group A LAB 1305-2(LOINC) D Ag POS Performed By: #### 81167-5 # ### LEVI Garcia ([id number]) [facility] ([facility]) [address] [place] [address] TREPONEMA PALLIDUM AB.IGG+IGM Collected : 12/19/2024 2:37 PM Status: F Source: [facility] TYPE CODE TESTS RESULT OUT OF RANGE REFERENCE UNITS LAB 31761-6(LOINC) Treponema pallidum Ab.IgG+IgM Nonreactive Nonreactive Result Comment: No significa nt level of Treponema pallidum antibody detected. Repeat testing in 2 to 4 weeks may be considered if early infection or incubating syphilis infection is suspected. Performed By: #### 98394-0 # ### LEVI Garcia ([id number]) [facility] ([facility]) [address] [place] [address] VARICELLA ZOSTER VIRUS AB.IGG Collected : 12/19/2024 2:37 PM Status: F Source: [facility] Order Comment: NEGATIVE: No IgG antibodies specific [...] RESULT OUT OF RANGE REFERENCE UNITS LAB 52958-0(LOINC ) Varicella zoster virus Ab.IgG POSITIVE Abnormal Negative LAB IVARG VARICELLA ZOSTER IGG INDEX 4.2 High <=0.8 IA Performed By: #### 34368-6 # ### LEVI Garcia ([id number]) [facility] ([facility]) [address] [place], [place] [address] FARRAH-SANCHEZ VIRUS ANTIBODY PANEL Collected: 12/19/2024 2:37 PM Status: F Source: [facility] Order Comment: EBV INTERPRET ATION CHART PRIMARY [...] Sanchez virus capsid Ab.IgM Negative Negative LAB 74611-7(LOINC) Farrah Sanchez virus early Ab.IgG Negative Negative LAB 13880-2(LOINC) Farrah Sanchez virus nuclear Ab Positive Abnormal Negative Performed By: #### EBVP1 ### # LEVI Garcia ([id number]) [facility] ([facility]) [address] [place] [address] HLA NEW KIDNEY,K/P EVALUATIO N PANEL Collected: 12/19/2024 2:37 PM Status: F Source: [facility] Order Comment: Test performe d at: [facility] Histocompatibility and Immunogenetics Laboratory [facility], 6th Floor [address] [place] [address] TYPE CODE TESTS RESULT OUT OF RANGE REFERENCE UNITS LAB 80287-5(LOINC ) HLA-A AND B AND C (class I) typing panel LAB 55228-8(LOINC ) HLA-DRB1 LAB 10605-8(LOINC ) HLA-DQB1 LAB 82257-2(LOINC ) HLA-DP2 LAB FLAUT FLOW AUTOCROSSMATCH LAB HLA1S HLA CLASS I AB SCREEN,FC LAB HLA2S HLA CLASS II AB SCREEN, LAB HLARES HLA RESULTS For collection only. Performed By: #### HLAKIEVKODY #### MISTY Munoz ([id number]) [facility] LAB ([facility]) [address] [place] [address] MYCOBACTERIUM TUBERCULOSIS STIMULATED GAMMA INTERFERON Collected: 12/19/2024 2:37 PM Status: F Source: [facility] TYPE CODE TESTS RESULT OUT OF RANGE REFERENCE UNITS LAB 32691-9(LOINC) Mycobacterium tuberculosis stimulated gamma interferon Negative Negative [...] be interpreted as a quantitative test. LAB 20631-6(LOINC) Mycobacterium tuberculosis stimulated gamma interferon.ESAT- 6 Ag spot count 0 LAB 22183-7(LOINC) Mycobacterium tuberculosis stimulated gamma interferon.CFP10 Ag spot count 0 LAB 60062-3(LOINC) Gamma interferon.negat dinorah control spot count Passed LAB 12956-3(LOINC) Mitogen stimulated gamma interferon.posit dinorah control spot count Passed Result Comment: For additional information, please refer to http://[email or web address].Ravn/faq/LCD523 (This link is being provided for informational/ educational purposes only.) Performed By: #### 95963-0 # ### LAM MATHEW ([id number]) [address] [facility] [address] [place], [place] DRUG PROFILE 9, BLOOD W/ REF CHRIS TO CONFIRMATION Collected: 12/19/2024 2:37 PM Status: F Source: [facility] TYPE CODE TESTS RESULT OUT OF RANGE REFERENCE UNITS LAB 8149-7(LOINC) Amphetamines Negative Cutoff 20 ng /mL LAB 3777-0(LOINC) Methamphetamine Negative Cutoff 20 ng/mL LAB 72212-9(LOINC ) Benzodiazepines Negative Cutoff 50 ng/mL LAB 3413-2(LOINC) Buprenorphine Negative Cutoff 1 ng /mL LAB 8172-9(LOINC) Cannabinoids Negative Cutoff 20 ng /mL LAB 8191-9(LOINC) Cocaine Negative Cutoff 20 ng/mL LAB 84410-1(LOINC ) Methadone Negative Cutoff 25 ng/mL LAB 32235-9(LOINC ) oxyCODONE Negative Cutoff 20 ng/mL LAB 8236-2(LOINC) Phencyclidine Negative Cutoff 10 n g/mL LAB 8219-8(LOINC) Opiates Negative Cutoff 20 ng/mL LAB 71660-6(LOINC ) Annotation comment See Note Result Comment: [...] developed and its performance characteristics determined by [facility]. It has not been cleared or approved by the US Food and Drug Administration. This test was performed in a CLIA certified laboratory and is intended for clinical purposes. Performed By: [facility] [address] [place] [address] Senior Peoples[employer] Developer: Jhonathan Ortega MD, PhD CLIA Number: [id number] LAB 23157-4([facility] ) Barbiturates Negative Cutoff 50 ng/mL Performed By: #### DS7LC ### # [facility] ([facility]) ([id number]) [address] [place] [address] NICOTINE AND METABOLITES,S Collected: 0 12/19/2024 2:37 PM Status: F Source: [facility] TYPE CODE TESTS RESULT OUT OF RANGE REFERENCE UNITS LAB 3853-9(LOINC) Nicotine <5 ng/mL Result Comment: INTERPRETIVE INFORMATION: [...] developed and its performance characteristics determined by [facility]. It has not been cleared or approved by the US Food and Drug Administration. This test was performed in a CLIA certified laboratory and is intended for clinical purposes. Performed By: [facility] [address] [place] [address] Senior Peoples[employer] Developer: Jhonathan Ortega MD, PhD CLIA Number: [id number] [facility] 80520-0([facility]) Cotinine <5 ng/mL Performed By: #### NI+ME ### # [facility] ([facility]) ([id number]) [address] [place] [address] FLOW AUTOCROSSMATCH Collected: 12/19/2024 12:00 AM S tatus: C Source: [facility] Order Comment: Test performe d at: [facility] Histocompatibility and Immunogenetics Laboratory [facility], [address]th Floor [address] [place] [address] TYPE CODE TESTS RESULT OUT OF RANGE REFERENCE UNITS LAB FLAUT FLOW AUTOCROSSMATCH LAB HLARES HLA RESULTS See Attached Performed By: #### FLAUC ### # MISTY NEL S ([id number]) HLA LAB ([facility]) [address] [place] [address] HLA TRANSPLANT ANTIBODY PANEL Collected : 12/19/2024 12:00 AM Status: C Source: [facility] Order Comment: Test performe d at: [facility] Histocompatibility and Immunogenetics Laboratory [facility], [address]th [address] [place] [address] TYPE CODE TESTS RESULT OUT OF RANGE REFERENCE UNITS LAB 56836-2(LOINC) HLA-A+B+C Ab LAB 04915-0(LOINC) HLA-DP+DQ+DR Ab LAB HLARES HLA RESULTS See attached. Performed By: #### HLANTI ## ## MISTY NEL S ([id number]) [facility] LAB ([facility]) [address] [place] [address] CNPN Observed: 12/19/2024 12:00 AM Status: COMPLETED Source: [facility] Telephone (TEJAS) SANDY BRAVO ([id number]) 1965 F Date Time Provider Department 12/19/24 ESTEFANI GOVEA During your visit today, we recorded the following information about you: Estefani Govea, RN 12/23/2024 10:10 AM Addendum Due to [...] a fistulagram. Pt gets dialysis M/W/F at [facility], which is closed //Mon/Mon (per information available [...] 12/20/2024 9:23 AM Signed Attempted to call [facility]. Exaptive network outage. Will re attempt to call. JESSICA Gorman Sarah E, RN 12/23/2024 10:09 AM Signed Attempted to speak with clinical team at [facility]. Following telephone prompts, was led to voicemail. Left message requesting call back. Estefani Govea RN, BSN 10:09 AM December 23, 2024 Estefani Govea RN 12/23/2024 3:06 PM Signed Called [facility] again to try to speak with clinical [...] 12/24/2024 9:09 AM Signed Scanned referral in [facility] regarding Fistulagram. Estefani Govea RN 12/30/2024 4:06 [...] Encounter Status:Closed by ESTEFANI GOVEA on 12/19/24 CNPN Observed: 12/17/2024 12:00 AM Status: COMPLETED Source: [facility] Telephone (PODCCP) SANDY BRAVO ([id number]) 1965 F Date Time Provider Department 12/17/24 [facility] During your visit today, we recorded the following information about you: Rex Garcia 12/17/2024 10:36 AM Signed Reason for call: Mr.s hill Lawrence called and he would like to schedule an appointment with DR lozada and her scan?? Contact Name (if not the patient) Home and cell number [phone] Diagnosis Fistula gram Kind Regards Queta Pinon 12/18/2024 11:03 AM Signed Patient states that the [facility] is in need of something to be faxed to them for a fistulogram? (She wasn't too clear on what this request is for). Queta Carmen 12/18/2024 11:05 AM Signed scheduled Estefani Govea, RN 12/19/2024 5:15 PM Signed Spoke with [...] Observed: 12/05/2024 9:53 AM Status: COMPLETED Source: [facility] HNO ID: [id number] Author: MALDONADO DENNY MD Service: ? Author Type: Physician Type: Progress Notes Filed: 12/05/2024 10:46 Note Text: This note was created using Squidbidriter. Subjective Patient presents with: 5 month follow-up Sandy Bravo is a 59 year old female. She was doing reasonably well. Her diabetes mellitus was labile. Hypertension was controlled. ESRD was managed with dialysis. Migraines were infrequent. She is scheduled with [facility] for uveitis. Review of Systems Constitutional: Negative [...] complication, with long-term current use of insulin ([facility]) - ICD9: 250.00, V58.67, ICD10: E11.9, Z79.4 [...] Observed: 12/05/2024 9:20 AM Status: COMPLETED Source: [facility] Office Visit (INTMWS) LAWRENCESANDY MINOR ([id number]) 1965 F Date Time Provider Department 12/05/24 9:20 AM MALDONADO DENNY INTMWS During your visit today, we recorded the following information about you: Temperature Pulse Blood pressure Weight 98.1 degrees 68/minute 124/64 61.1 kg Maldonado Denny MD 12/05/2024 10:46 AM Signed This note was created using Squidbidriter. Subjective Patient presents with: 5 month follow-up [...] complication, with long-term current use of insulin ([facility]) - ICD9: 250.00, V58.67, ICD10: E11.9, Z79.4 [...] HORMONE 4. ESRD (end stage renal disease) ([facility]) - ICD9: 585.6, ICD10: N18.6 - COMPLETE BLOOD COUNT - COMPREHENSIVE METABOLIC PANEL 5. Congestive heart failure, unspecified HF chronicity, unspecified heart failure type ([facility]) - ICD9: 428.0, ICD10: I50.9 - Compensated - Continue current medications 6. VT (ventricular tachycardia) ([facility]) - ICD9: 427.1, ICD10: I47.20 - Controlled. [...] complication, with long-term current use of insulin ([facility]) [E11.9, Z79.4] Other Visit Diagnoses:Primary hypertension [I10] Hypothyroidism, unspecified type [E03.9] ESRD (end stage renal disease) ([facility]) [N18.6] Congestive heart failure, unspecified HF chronicity, unspecified heart failure type (HCC) [I50.9] VT (ventricular tachycardia) ([facility]) [I47.20] Need for vaccination [Z23] Migraine without [...] ineffectiveDisp: 12 tabletRfl: 2 HEMOGLOBIN A1C (POC) [7058268] Order #: [id number] HEP A-HEP B VACCINE ([facility]) [49650FDQ] Order #: [id number] HEP A-HEP B VACCINE ([facility]) [56961WPM] Order #: [id number] FUTURE HEP A-HEP B VACCINE ([facility]) [67330HDE] Order #: [id number] FUTURE CONSULT TO GYNECOLOGY [9013] Order #: [id number]: 1 FUTURE COMPLETE BLOOD COUNT [SQCBC] Order #: [id number] FUTURE COMPREHENSIVE METABOLIC PANEL [SQCMP] Order #: [id number] FUTURE LIPID PANEL, FASTING [SQLIPB] Order #: [id number] FUTURE HEMOGLOBIN A1C [QQVKN0Z] Order #: [id number] FUTURE THYROID STIMULATING HORMONE [SQTSH] Order #: [id number] FUTURE Prescriptions as of 12/05/2024 - amLODIPine [...] daily. Level of Service: OFFICE/OUTPATIENT ESTABLISHED MOD [facility] 30 MIN [25245] Additional E/M codes: VISIT CPLX INHERENT EANDM ASSOC WITH MED * Disposition: Return in about 6 months (around 06/13/2025). Follow-up and Disposition History for Encounter Date Provider Department Center 12/05/2024 [id number] DENNY [facility] Encounter Status:Closed by MALDONADO DENNY on 12/05/24 ARYA Observed: 12/05/2024 12:00 AM Status: COMPLETED Source: [facility] Telephone (NABOR) SANDY BRAVO ([id number]) 1965 F Date Time Provider Department 12/05/24 MALDONADO DENNY INTMWS During your visit today, we recorded the following information about you: Chris Pierce RN 12/05/2024 11:05 AM Signed [facility] phoned to let pcp know- they quit making levemir. [facility] pcp can order Lantus, Toujeo, or Tresiba [...] current use of insulin (HCC) [E11.9, Z79.4] Order(s):insulin glargine (LANTUS SOLOSTAR U-100 [...] cardiomyopathy (HCC) [I42.2] 11/08/2023 Congestive heart failure ([facility]) [I50.9] History of echocardiogram [Z92.89] 11/07/2023 History of stress test [Z92.89] 06/21/2023 Encounter for screening for stenosis of carotid*03/27/2023 Arteriovenous fistula, acquired ([facility]) [I77.0] 06/13/2024 Peripheral arterial disease ([facility]) [I73.9] 07/10/2024 Migraine without aura, not intractable, [...] Encounter Status:Closed by MALDONADO DENNY on 12/05/24 [facility] US BREAST LTD LT Observed: 1:50 PM Status: F Source: [facility] * * *Final Report* * * DATE OF EXAM: Dec 03 2024 1:50PM WRU 0593 - KUNAL US BREAST LTD LT / PROCEDURE REASON: Abnormal screening mammogram * * * * Physician Interpretation * * * * [place] [address] #[id number] - [facility] [place] #[id number] - [facility] US BREAST LTD LT HISTORY: 59 year-old patient seen for [...] Anna Galaviz M.D. Electronically signed on: 12/03/2024 Rubber Moulding Machine Operator: ANSLEY Transcribe Date/Time: Dec 03 2024 1:43P Dictated by : ANNA GALAVIZ MD This examination was interpreted and the report reviewed and electronically signed by: ANNA GALAVIZ MD on Dec 03 2024 2:01PM EST [id number] Observed: 12/03/2024 1:30 PM Status: COMPLETED [id number] Author: SANGEETA FAROOQ RDMS Service: ? Author Type: Financial Examiner Type: Progress Notes Filed: 12/03/2024 14:01 Note [...] PATIENT PRESENTS WITH AN IMPLANTABLE OR ATTACHED SUPERVISOR LAMP SHADES: No RADIOLOGY DEPARTMENT: Ultrasound PERIPHERAL IV DATA: Not applicable SIGNED BY: Sangeeta Farooq RDMS December 03, 2024 2:01 PM [facility] [place] Observed: 12/03/2024 1:29 PM Status: F Source: [facility] * * *Final Report* * * DATE OF EXAM: Dec 03 2024 1:29PM [facility] 0627 - KUNAL [place] / PROCEDURE REASON: Abnormal screening mammogram * * * * Physician Interpretation * * * * RESULT: [facility] [address] [id number] #[id number] - [place] #[id number] - [facility] US BREAST LTD LT HISTORY: 59 year-old patient seen for [...] Anna Galaviz M.D. Electronically signed on: 12/03/2024 Rubber Moulding Machine Operator: ANSLEY Transcribe Date/Time: Dec 03 2024 1:02P Dictated by: ANNA GALAVIZ MD This examination was interpreted and the report reviewed and electronically signed by: ANNA GALAVIZ MD on Dec 03 2024 2:01PM EST [id number] PROGRESS Observed: 12/03/2024 1:00 PM Status: COMPLETED Source: [facility] Author: ALEX CALLAHAN Mammo Tech Service: ? Author Type: Financial Examiner Type: Progress Notes Filed: 12/03/2024 13:01 Note [...] PATIENT PRESENTS WITH AN IMPLANTABLE OR ATTACHED SUPERVISOR LAMP SHADES: No RADIOLOGY DEPARTMENT: Mammography PERIPHERAL IV DATA: Not applicable SIGNED BY: Kika Cooley December 03, 2024 1:01 PM MR CARDIAC MORPHOLOGY AND FUNCTION W AND WO IV CONTRAST Observed: 11/26/2024 8:04 AM Status: F Source: [facility] Interpreted By: Barbi French, STUDY: MR CARDIAC [...] organ transplant status,I25.10 Atherosclerotic heart disease of [place] coronary artery without angina pectoris COMPARISON: Echocardiography dated 09/18/2023 ACCESSION NUMBER(S): [id number] ORDERING CLINICIAN: EDITA CASTELLON TECHNIQUE: Siemens 1.5 [...] Kelvin French 11/26/2024 12:04 PM Dictation workstation: [id number] PROGRESS Observed: 08/18/2024 6:42 PM Status: COMPLETED Source: [facility] Author: ASUNCION ROSSI RN Service: ? Author Type: Registered Nurse Type: Progress Notes Filed: 08/18/2024 18:43 Note Text: CD Telephonic Outreach Provider Action/FYI Contacted for: Routine Telephonic Outreach Contact made with patient: No, unable to leave message. Asuncion Rossi RN August 18, 2024 6:43 PM JULIANNETONICK Observed: 08/18/2024 12:00 AM Status: COMPLETED Source: [facility] Patient Outreach ([facility]) SANDY BRAVO ([id number]) 1965 F Date Time Provider Department 08/18/24 ASUNCION ROSSI [facility] During your visit today, we recorded the following information about you: Asuncion Rossi RN 08/18/2024 6:43 PM Signed [facility] Telephonic Outreach Provider Action/FYI Contacted for: Routine [...] Observed: 08/15/2024 3:42 PM Status: COMPLETED [id number] Author: ASUNCION ROSSI RN Service: ? Author [...] daily weight at home? No Based on employee service officer, the following disposition is advised: No symptoms or symptoms present, not severe. Routed to: No Action Needed JEANNETTE Education Provided this Outreach: No Asuncion Rossi RN August 15, 2024 3:46 PM JULIANNETOUTREASHERLY Observed: 08/15/2024 12:00 AM Status: COMPLETED Source: [facility] Patient Outreach ([facility]) SANDY BRAVO ([id number]) 1965 F Date Time Provider Department 08/15/24 ASUNCION ROSSI During your visit today, we recorded the following information about you: Asuncion Rossi RN 08/15/2024 3:49 PM Signed [facility] Telephonic Outreach Provider Action/FYI -chf, ckd, htn, [...] daily weight at home? No Based on employee service officer, the following disposition is advised: No symptoms [...] Observed: 07/31/2024 11:09 AM Status: COMPLETED Source: [facility] Author: ASUNCION ROSSI RN Service: ? Author Type: Registered Nurse Type: Progress Notes Filed: 07/31/2024 11:11 Note Text: CDM Telephonic Outreach Provider Action/FYI Contacted for: Routine Telephonic Outreach Contact made with patient: No, unable to leave message. Asuncion Rossi RN July 31, 2024 11:10 AM CNPTOUTRGREGCH Observed: 07/31/2024 12:00 AM Status: COMPLETED Source: [facility] Patient Outreach ([facility]) LAWRENCESANDY Mai ([id number]) 1965 F Date Time Provider Department 07/31/24 ASUNCION ROSSI [facility] During your visit today, we recorded the [...] Observed: 07/30/2024 10:13 AM Status: COMPLETED Source: [facility] Author: ASUNCION ROSSI RN Service: ? Author Type: Registered Nurse Type: Progress Notes Filed: 07/30/2024 10:14 Note Text: CDM Telephonic Outreach Provider Action/FYI Contacted for: Routine Telephonic Outreach Contact made with patient: No, unable to leave message. Asuncion Rossi RN July 30, 2024 10:14 AM CNPTOUTREACH Observed: 07/30/2024 12:00 AM Status: COMPLETED Source: [facility] Patient Outreach ([facility]) LAWRENCESANDY MINOR ([id number]) 1965 F Date Time Provider Department 07/30/24 ASUNCION ROSSI [facility] During your visit today, we recorded the [...] for stenosis of carotid*03/27/2023 Arteriovenous fistula, acquired ([facility]) [I77.0] 06/13/2024 Peripheral arterial disease ([facility]) [I73.9] 07/10/2024 Encounter Status:Closed by ASUNCION ROSSI on 07/30/24 [facility] US CAROTID ARTERY DUPLE X BILATERAL Observed: 07/25/2024 9:04 AM Status: F Source: [place] [address] and Vascular Lab Report VAS US CAROTID ARTERY DUPLEX BILATERAL Patient Name: SANDY BRAVO Reading Physician: [id number] Justin Berg DO Study Date: 07/25/2024 Ordering Physician: [id number] ROLY MORALES MRN/PID: [id number] Technologist: Lilliam Mcfarlane RVT Technologist 2: Date of /Age: 5 1965 / 59 years Gender: F Admission Status: Outpatient Location Performed: [facility] Diagnosis/ICD: Other specified symptoms and signs involving the circulatory and respiratory systems-R09.89; Encounter for other preprocedural examination-Z01.818 Indication: Pre-operative exam CPT Codes: 69008 Cerebrovascular Carotid Duplex scan complete CONCLUSIONS: Right [...] cm/s Right Left ICA/CCA Ratio 1.1 2.4 [id number] Justin Berg DO Final ECG 12-LEAD Observed: 07/23/2024 5:32 PM Status: F Source: [facility] Ventricular Rate 82 Atrial Rate 82 P-R Interval 154 QRS Duration 136 Q-T Interval 434 QTC Calculation(Bazett) 507 P Wann -9 R Wann -43 T Wann 104 QRS Count 13 Q Onset 208 [...] Observed: 07/11/2024 3:15 PM Status: F Source: [facility] Interpreted By: Donavon Morton , STUDY: CT CARDIAC SCORING WO IV CONTRAST; 07/11/2024 3:31 pm INDICATION: Signs/Symptoms:pre kidney transplant evaluation. COMPARISON: CT of the chest of 04/16/2024 ACCESSION NUMBER(S): [id number] ORDERING CLINICIAN: ROLY MORALES TECHNIQUE: Using prospective [...] coronary heart disease events. According to the [employer] Clinical Expert Consensus [...] al. Circulation. 2007; 115:402-426 Signed by: Donavon oMrton 07/16/2024 5:46 PM Dictation workstation: [id number] [facility] SCREENING Observed: 07/11/2024 9:46 AM Status: F Source: [facility] * * *Final Report* * * DATE OF EXAM: Jul 11 2024 9:46AM KEVIN 0581 - KUNAL SCREENING / PROCEDURE REASON: Encounter for screening mammogram for breast cancer * * * * Physician Interpretation * * * * RESULT: [address] [address] [place] [address] HISTORY: Patient is 59 years old and [...] Christina Torres M.D. Electronically signed on: 07/12/2024 Rubber Moulding Machine Operator: ANSLEY Transcribe Date/Time: Jul 11 2024 9:24A Dictated by: CHRISTINA TORRES MD This examination was interpreted and the report reviewed and electronically signed by: CHRISTINA TORRES MD on Jul 12 2024 11:46AM EST [id number] Observed: 07/11/2024 9:30 AM Status: COMPLETED Source: [facility] HNO ID: [id number] Author: ALEX CALLAHAN Mammo Tech Service: ? Author Type: Financial Examiner Type: Progress Notes Filed: 07/11/2024 09:35 Note [...] PATIENT PRESENTS WITH AN IMPLANTABLE OR ATTACHED SUPERVISOR LAMP SHADES: No RADIOLOGY DEPARTMENT: Mammography PERIPHERAL IV DATA: Not applicable SIGNED BY: Kika Cooley July 11, 2024 9:35 AM PROGRESS Observed: 07/10/2024 4:11 PM Status: COMPLETED Source: [facility] HNO ID: [id number] Author: ANTHONY THOMAS MD Service: ? Author Type: Physician Type: Progress Notes Filed: 07/10/2024 16:21 Note Text: [facility] [place] DEPARTMENT OF VASCULAR SURGERY OUTPATIENT VISIT DATE [...] colic 06/12/2007 Secondary hyperparathyroidism of renal origin ([facility]) 06/20/2023 Steal syndrome dialysis vascular access ([facility]) 05/17/2019 Thyroid disorder TIA (transient ischemic attack) [...] COLONOSCOPY SCREENING 11/15/2022 COLOSTOMY/SKIN LEVEL CECOSTOMY 2007 [id number], reversed 2007 CREATION OF AVF, PERCUTANEOUS USING [...] Observed: 07/10/2024 2:45 PM Status: COMPLETED Source: [facility] Office Visit (VASSMN) SANDY BRAVO ([id number]) 1965 F Date Time Provider Department 07/10/24 2:45 PM ANTHONY THOMAS During your visit today, we recorded the following information about you: Anthony Thomas MD 07/10/2024 4:21 PM Signed [facility] [place] DEPARTMENT OF VASCULAR SURGERY OUTPATIENT VISIT DATE [...] MEDICAL HISTORY Diagnosis Date Acute kidney failure ([facility]) 01/14/2018 Anxiety Arterial steal syndrome ([facility]) 12/2018 Left AVF Calculus of ureter 06/12/2007 CKD (chronic kidney disease) stage V requiring chronic dialysis ([facility]) 03/01/2018 Dr. Pendleton, nephrology. Congestive heart failure ([facility]) Constipation Depression 09/04/2006 Encounter for screening for stenosis of carotid artery 03/27/2023 Less then 50% calcification bilaterally. ESRD on dialysis ([facility]) 05/16/2019 GERD (gastroesophageal reflux disease) Hemorrhoids History [...] colic 06/12/2007 Secondary hyperparathyroidism of renal origin ([facility]) 06/20/2023 Steal syndrome dialysis vascular access ([facility]) 05/17/2019 Thyroid disorder TIA (transient ischemic attack) [...] COLONOSCOPY SCREENING 11/15/2022 COLOSTOMY/SKIN LEVEL CECOSTOMY 2007 1828-0231, reversed 2007 CREATION OF AVF, PERCUTANEOUS USING [...] mouth twice daily as needed for Constipation. NEPHRO-SNODRA 0.8 mg tab Take 1 tablet by [...] TIME: 4:11 PM Referring Provider: ANTHONY THOMAS [[id number]] Allergies As of Date: 07/10/2024 Noted Allergy [...] V requiring *03/01/2018 08/29/2019 ESRD on dialysis ([facility]) [N18.6, Z99.2] 05/16/2019 VT (ventricular tachycardia) [I47.20] 05/17/2019 Steal syndrome dialysis vascular access (HCC) [*05/17/2019 02/23/2023 ESRD (end stage renal disease) ([facility]) [N18.6] 04/21/2021 10/27/2023 Ventral hernia with obstruction, [...] Encounter Status:Closed by ANTHONY THOMAS on 07/10/24 A/V FISTULA GRAFT UNL VAS LAB Observed: 07/10/2024 1:46 PM Status: F Source: [facility] Upper Extremity Arterial Duplex Unilateral [...] adequate flow for dialysis. Technologist: Joyce Toussaint T Ordering physician: ANTHONY THOMAS Interpreting physician: Jaylyn Fortune MD, WYATT Final CC [employer] : [id number] See Link below for Image PROGRESS Observed: 07/02/2024 9:59 AM Status: COMPLETED Source: [facility] HNO ID: [id number] Author: ASUNCION ROSSI, RN Service: ? Author [...] daily weight at home? No Based on employee service officer, the following disposition is advised: No symptoms or symptoms present, not severe. Routed to: No Action Needed JEANNETTE Education Provided this Outreach: No Asuncion Rossi RN July 02, 2024 10:01 AM CNPTOUTREACH Observed: 07/02/2024 12:00 AM Status: COMPLETED Source: [facility] Patient Outreach ([facility]) SANDY BRAVO ([id number]) 1965 F Date Time Provider Department 07/02/24 ASUNCION ROSSI [facility] During your visit today, we recorded the [...] daily weight at home? No Based on employee service officer, the following disposition is advised: No symptoms [...] Observed: 06/25/2024 2:45 PM Status: COMPLETED Source: [facility] Author: ASUNCION ROSSI RN Service: ? Author Type: Registered Nurse Type: Progress Notes Filed: 06/25/2024 14:47 Note Text: CDM Telephonic Outreach Provider Action/FYI Contacted for: Routine Telephonic Outreach Contact made with patient: No, unable to leave message. Asuncion Rossi RN June 25, 2024 2:46 PM OANH Observed: 06/25/2024 12:00 AM Status: COMPLETED Source: [facility] Patient Outreach ([facility]) LAWRENCESANDY MINOR ([id number]) 1965 F Date Time Provider Department 06/25/24 ASUNCION ROSSI [facility] During your visit today, we recorded the [...] Observed: 06/13/2024 3:31 PM Status: COMPLETED Source: [facility] Author: MALDONADO DENNY MD Service: ? Author Type: Physician Type: Progress Notes Filed: 06/13/2024 16:25 Note Text: This note was created using Squidbidriter. Subjective Sandy Bravo is a 59 year old female. She missed dialysis yesterday due to migraines. She took Imitrex which helped. She had residual lightheadedness today. Her hypertension was difficult and labile. She typically held her blood pressure medications for the morning of dialysis. She had a cough for one month, but was scheduled for a chest xray at [facility] where she is being evaluated for transplant. [...] Disease) Proteinuria Esrd On Dialysis ([facility]) VT (ventricular tachycardia) Tubular Adenoma of Colon Secondary Hyperparathyroidism of Renal Origin (Hcc) Hypertrophic Cardiomyopathy (Hcc) Congestive Heart Failure ([facility]) History of Echocardiogram History of Stress Test Encounter for Screening for Stenosis of Carotid Artery Arteriovenous Fistula, Acquired ([facility]) Current Outpatient Medications Medication Sig [...] immunization - ICD9: V03.89, ICD10: Z23 - [employer] COVID-19 VACCINE AGE 12+ YR (COMIRNATY) 3. [...] Observed: 06/13/2024 3:16 PM Status: COMPLETED Source: [facility] Author: MALDONADO DENNY MD Service: ? Author [...] - General (Internal Medicine) Dr. Miladys Shelton, [place] vp data. Dr. Anthony Thomas, vascular surgery. [facility], Gynecology. Byron Day MD as Referring (Ophthalmology) DrYodit Lake, Cardiology. Dr. Héctor Cruz, Ophthalmology. Helen Cuellar APRN, [facility], Gynecology. JUSTIN for dialysis. Medical/Family history review Reviewed and [...] Observed: 06/13/2024 3:00 PM Status: COMPLETED Source: [facility] Office Visit (INTMWS) SANDY BRAVO ([id number]) 1965 F Date Time Provider Department 06/13/24 [...] - General (Internal Medicine) Dr. Miladys Shelton, [place] vp data. Dr. Anthony Thomas, vascular surgery. [facility], Gynecology. Byron Day MD as Referring (Ophthalmology) Dr. Dave Lake, Cardiology. Dr. Héctor Cruz, Ophthalmology. Helen Cuellar APRN, CN, Gynecology. [facility]IN for dialysis. Medical/Family history review Reviewed and [...] PM Signed This note was created using Squidbidriter. Subjective Sandy Bravo is a 59 year old female. She missed dialysis yesterday due to migraines. She took Imitrex which helped. She had residual lightheadedness today. Her hypertension was difficult and labile. She typically held her blood pressure medications for the morning of dialysis. She had a cough for one month, but was scheduled for a chest xray at [facility] where she is being evaluated for transplant. [...] immunization - ICD9: V03.89, ICD10: Z23 - [employer] COVID-19 VACCINE AGE 12+ YR (COMIRNATY) 3. [...] review all the medicines you take, even uwsq-zqm-ienyozy medicines. As you get older, the way [...] Secondary hyperparathyroidism of renal origin (HCC) [N25.81] Order(s):TMMI ([employer] COVID-19 VACCINE AGE 12+ YR (COMIR[place]Y) [17030MCI] Order #: [id number] DEPRESSION SCREENING [] Order #: [id number]: 1 ANXIETY SCREENING [] Order #: [id number]: 1 cloNIDine HCl (CATAPRES) 0.2 mg tabletTake [...] review all the medicines you take, even pxeb-enx-jcnvkmj medicines. As you get older, the way [...] for Encounter Date Provider Department Center 06/13/2024 [id number] DENNY INTWS [facility] Tanisha Encounter Status:Closed by MALDONADO DENNY on 06/13/24 ECG COMPLETE Observed: 06/11/2024 7:07 AM Status: F Source: [facility] Ventricular Rate : 78 BPM Atrial Rate : 78 BPM P-R Interval : 166 ms QRS Duration : 140 ms Q-T Interval : 444 ms QTC Calculation(Bazett) : 506 ms Calculated P Wann : 59 degrees Calculated R Wann : -50 degrees Calculated T Wann : 104 degrees Normal sinus rhythm Right bundle branch block Left anterior fascicular block Bifascicular block Left ventricular hypertrophy with repolarization abnormality Confirmed by DAVE LAKE DO ([id number]) on 06/16/2024 7:02:00 PM NAME : SANDY RBAVO PID : [id number] : 1965 Gender : Female Race : ORD : [id number] Procedure Date : Jun 11 2024 07:07:23 Edit Date : Jun 16 2024 19:02:06 Diagnosis: Normal sinus rhythm Right bundle branch block Left anterior fascicular block Bifascicular block Left ventricular hypertrophy with repolarization abnormality Confirmed by DAVE LAKE DO ([id number]) on 06/16/2024 7:02:00 PM Test Reason : HCS Location : 2 : [place] Overread By : DAVE LAKE DO Edited By : DAVE LAKE DO Referred By : , Acquired by : ISAURO Observed: 06/11/2024 7:00 AM Status: COMPLETED Source: [facility] Office Visit (KIRILL) SANDY BRAVO ([id number]) 1965 F Date Time Provider Department 06/11/24 7:00 AM MANDIE BELTRAN During your visit today, we recorded the following information about you: Pulse Blood pressure Weight Height 78/minute 136/68 67.7 kg 1.6 m Mandie Beltran APRN.JULIANNE 06/11/2024 7:45 AM Signed [facility] Department of Cardiology Referring Provider: No ref. [...] Patient is a dialysis patient with [facility], Iuaiec-Yutnrispe-Xwsecxl. Patient has a right upper arm fistula. ALLERGIES Allergen Reactions Codeine GI Upset Latex Hives 2005 had reaction after surgery Penicillins Swelling Chlorhexidine Rash PAST MEDICAL HISTORY: PAST MEDICAL HISTORY Diagnosis Date Acute kidney failure (HCC) 01/14/2018 Anxiety Arterial steal syndrome ([facility]) 12/2018 Left AVF Calculus of ureter 06/12/2007 CKD (chronic kidney disease) stage V requiring chronic dialysis ([facility]) 03/01/2018 Dr. Pendleton, nephrology. Congestive heart failure ([facility]) Constipation Depression 09/04/2006 Encounter for screening for stenosis of carotid artery 03/27/2023 Less then 50% calcification bilaterally. ESRD on dialysis ([facility]) 05/16/2019 GERD (gastroesophageal reflux disease) Hemorrhoids History [...] colic 06/12/2007 Secondary hyperparathyroidism of renal origin ([facility]) 06/20/2023 Steal syndrome dialysis vascular access ([facility]) 05/17/2019 Thyroid disorder TIA (transient ischemic attack) [...] COLONOSCOPY SCREENING 11/15/2022 COLOSTOMY/SKIN LEVEL CECOSTOMY 2007 [id number], reversed 2007 CREATION OF AVF, PERCUTANEOUS USING [...] lung cancer Coronary Artery Disease Brother dec. [place] 57 y.o. No Known Problems Maternal Grandmother [...] a dialysis patient with dialysis treatment every Xvbeke-Qvjjjodsy-Ejgpkc -Currently taking lisinopril 40 mg daily 2. [...] exercise -Statin is followed and managed through [facility] 5. History of echocardiogram [...] note was partially generated from using the [employer] voice recognition system. There may be some [...] Assessed Reason for Visit: Established Patient Follow-Up [[id number]] Cmt: 6 month follow up, hx of [...] smoker [Z87.891] Order(s):ECG COMPLETE [ECG01] Order #: [id number]. #:[id number] nitroglycerin sublingual (NITROQUICK) 0.4 mg SL tabletDissolve [...] Observed: 06/11/2024 6:51 AM Status: COMPLETED Source: [facility] HNO ID: [id number] Author: MANDIE BELTRAN APRN.[employer] Service: ? Author Type: Nurse Practitioner Type: Progress Notes Filed: 06/11/2024 07:45 Note Text: [facility] Department of Cardiology Referring Provider: No ref. [...] Patient is a dialysis patient with [facility], Zlmbwt-Fxxtrkkbs-Gmdjhjg. Patient has a right upper arm fistula. ALLERGIES Allergen Reactions Codeine GI Upset Latex Hives 2005 had reaction after surgery Penicillins Swelling Chlorhexidine Rash PAST MEDICAL HISTORY: PAST MEDICAL HISTORY Diagnosis Date Acute kidney failure (HCC) 01/14/2018 Anxiety Arterial steal syndrome (HCC) 12/2018 Left AVF Calculus of ureter 06/12/2007 CKD (chronic kidney disease) stage V requiring chronic dialysis ([facility]) 03/01/2018 Dr. Pendleton, nephrology. Congestive heart failure (HCC) Constipation Depression 09/04/2006 Encounter for screening for stenosis of carotid artery 03/27/2023 Less then 50% calcification bilaterally. ESRD on dialysis ([facility]) 05/16/2019 GERD (gastroesophageal reflux disease) Hemorrhoids History [...] HTN (hypertension) 09/04/2001 Hyperlipidemia 09/04/1999 Hypertrophic cardiomyopathy ([facility]) 07/25/2019 echo in 2023 confirms 40mmhg gradient with valsalva Hypothyroid 03/30/2012 Proteinuria 06/14/2013 Renal colic 06/12/2007 Secondary hyperparathyroidism of renal origin ([facility]) 06/20/2023 Steal syndrome dialysis vascular access ([facility]) 05/17/2019 Thyroid disorder TIA (transient ischemic attack) [...] COLONOSCOPY SCREENING 11/15/2022 COLOSTOMY/SKIN LEVEL CECOSTOMY 2007 [id number], reversed 2006 CREATION OF AVF, PERCUTANEOUS USING [...] Mx PAST SURGICAL HISTORY OF Left 05/16/2019 DAMIENAyanna LEXI (proximal brachial to distal brachial artery [...] lung cancer Coronary Artery Disease Brother dec. [place] 57 y.o. No Known Problems Maternal Grandmother [...] a dialysis patient with dialysis treatment every Rerhfy-Floxazixb-Olrorl -Currently taking lisinopril 40 mg daily 2. [...] exercise -Statin is followed and managed through [facility] 5. History of echocardiogram [...] transcribed by Mandie Beltran APRN.CNP. Mandie Beltran APRN.JULIANNE This patient note was partially generated from using the [employer] voice recognition system. There may be some incorrect words, spelling, and punctuation that were not noted in checking the note prior to saving JULIANNEN Observed: 06/04/2024 12:00 AM Status: COMPLETED Source: [facility] Telephone (OPHTMN) SANDY BRAVO ([id number]) 1965 F Date Time Provider Department 06/04/24 ROBERT LALA During your visit today, we recorded the [...] see them 07/11 at 9 am. Thanks, Alissa Chew Rosenda Celsa 06/05/2024 10:04 AM Signed She said she [...] Date Reviewed: 06/02/2024 Reviewed by: Mandie Beltran APRN.[employer] - Fully Assessed Reason for Visit: Appointment [...] / CODE REACTION SEVERITY SOURCE 4 DRUG INGREDI/670573830( SNOMED CT) CODEINE [facility] 4 Drug Class/810936790(SN OMED CT) PENICILLINS [facility] 9 DRUG/159870446(SNO MED CT) ACETAMINOPHEN-CODE INE [facility] 9 DRUG INGREDI/553089862( SNOMED CT) CHLORHEXIDINE [facility] 9 DRUG INGREDI/304028046( SNOMED CT) CHLORHEXIDINE RASH [facility] 2 DRUG INGREDI~Environ/41 9145351(SNOMED CT) LATEX [facility]UG INGREDI/078390101( SNOMED CT) LATEX [facility] 7 DRUG INGREDI/864456794( SNOMED CT) CODEINE GI UPSET [facility] 7 Drug Class/600031626(SN OMED CT) PENICILLINS SWELLING [facility] Drug Allergy/691567429( SNOMED CT) PENICILLINS (CLASS)/22002891(R XNORM) REDNESS, RASH, SWELLING; SOB, SWELLING Moderate (Severity Modifier) (Qualifier Value) [facility] Drug Allergy/788304283( SNOMED CT) CODEINE/49259259(R XNORM) RASH; VOMITING, NAUSEA Moderate (Severity Modifier) (Qualifier Value) [facility] Environmental Allergy/021936486( SNOMED CT) LATEX Moderate (Severity Modifier) (Qualifier Value) [facility] ENCOUNTERS ADMIT/DISCHARGE ACCOUNT NUMBER ADMITTING ENCOUNTER CLASS LOCATION SOURCE 05/13/2025/05/13/20 [id number] Ambulatory [facility] HospitalBuil ding:ART [facility] 04/17/2025/04/17/20 [id number] Ambulatory Building:[place] [id number] [place] [address] 02/20/2025/02/21/20 [id number] Ambulatory [id number] ilding:[facility] 02/06/2025/02/07/20 [id number] Ambulatory [facility] Hospital[facility]il ding:ART [facility] 01/13/2025/01/14/20 [id number] ANTHONY THOMAS Ambulatory [facility] HospitalBuil ding:[id number] m: [id number]: [id number] [facility] 01/02/2025/01/03/20 [id number] [facility]ulatory [facility]:SANDRA [facility] 12/27/2024/12/28/19 [id number] MILADYS SHELTON MD Ambulatory Building:[facility] 12/20/2024/12/21/19 [id number] Ambulatory Building:[facility] 12/20/2024/12/21/19 [id number] Ambulatory Building:[facility] 12/20/2024/12/21/19 [id number] Ambulatory Building:[facility] 12/05/2024/12/06/19 [id number] Ambulatory [facility] HospitalBuil ding:ART [facility] 12/03/2024/12/04/19 [id number] Ambulatory [facility] HospitalBuil ding:LORETTA [facility] 12/03/2024/12/04/19 [id number] [facility]BAUDILIO [facility] 11/26/2024/11/27/19 [id number] Ambulatory Building:[facility]IRI [facility] 07/25/2024/07/25/20 24 [id number] [facility]07/25/20 24 [id number] Ambulatory Building:[facility] [id number] [facility] 07/23/2024/07/23/20 24 [id number] Ambulatory Building:[facility] [id number] [facility] 07/16/2024/07/16/20 24 [id number] Ambulatory Building:[facility] 07/11/2024/07/11/20 24 [id number] Ambulatory Building:[facility] [id number] [facility] 07/11/2024/07/11/20 24 [id number] Ambulatory [facility] HospitalBuil ding:BAUDILIO [facility] 07/10/2024/07/10/20 24 [id number] Ambulatory [facility] HospitalBuil ding:ROBERTA [facility] 07/10/2024/07/10/20 24 [id number] Ambulatory [facility] HospitalBuil ding:MREEDITH [facility] 06/13/2024/06/13/20 24 [id number] Ambulatory [facility] HospitalBuil ding:ART [facility] 06/11/2024/06/11/20 24 [id number] Ambulatory [id number] ilding:VANESSA Martinez [facility] PAYERS ENCOUNTER GUARANTOR PAYER SUBSCRIBER SOURCE 05/13/2025 Primary Insuranc e:[facility] DUAL COMPLETE HMO POS SNPPolicy Number: [id number] Date:3528-67-03Metp Name:Johnny HILL Mai COVARRUBIASB: [id number] [place] [address] [facility] 05/13/2025 Secondary Insurance[place] MEDICAIDPolicy Number: [id number] Date:7491-08-05Pddv Name:Gloria HILL Mai GIORDANO: [id number] [place] [address] [facility] 04/17/2025 SANDY COVARRUBIASB: [place], [place] [address]Zoo: () Primary Insurance:[facility] DUAL COMPLETEPolicy Number: [id number] Date:2022-09-04 SANDY KOCHYara COVARRUBIASB: [id number] [place] [address]Aid: () [facility] 02/20/2025 Primary Insuranc e:[facility] DUAL COMPLETE HMO POS SNPPolicy Number: [id number] Date:3307-61-39Szjp Name:Johnny SANDY Mai COVARRUBIASB: [id number] [place] [address] [facility] 02/20/2025 Secondary Insurance:[place] MEDICAIDPolicy Number: [id number] Date:7230-23-31Fyqh Name:Gloria SANDY GIORDANO: [id number] [place] [address] [facility] 02/06/2025 Primary Insuranc e:[facility] DUAL COMPLETE HMO POS SNPPolicy Number: [id number] Date:2040-47-81Tkdg Name:Johnny GIORDANO: [id number] [place] [address] [facility] 02/06/2025 Secondary Insurance:[place] MEDICAIDPolicy Number: [id number] Date:6878-31-40Gsko Name:Gloria Oneill MARCIB: [id number] [place] [address] [facility] 01/13/2025 Primary Insuranc e:[facility] DUAL COMPLETE HMO POS SNPPolicy Number: [id number] Date:1262-59-36Kxyz Name:Johnny Oneill MARCIB: [id number] [place] [address] [facility] 01/13/2025 Secondary Insurance:[place] MEDICAIDPolicy Number: [id number] Date:0537-84-56Qkje Name:Gloria Oneill MARCIB: [id number] [place] [address] [facility] 01/02/2025 Primary Insuranc e:[facility] DUAL COMPLETE HMO POS SNPPolicy Number: [id number] Date:7894-93-76Qmsg Name:Johnny Oneill MARCIB: [id number] [place] [address] [facility] 01/02/2025 Secondary Insurance:[place] MEDICAIDPolicy Number: [id number] Date:6945-39-36Igzq Name:Gloria Oneill GIULIANA: [id number] [place] [address] [facility] 12/20/2024 SANDY PRESSLEY MARCIB: [id number] [place], [place] [address]Bgh: (HP) Primary Insurance:[facility] DUAL COMPLETEPolicy Number: [id number] Date:2022-09-04 SANDY PRESSLEY MARCIB: [id number] [place] [address]Lsf: (HP) [facility] 12/20/2024 Secondary Insurance:[employer] MEDICAREPolicy Number: [id number] Date:2023-08-04 SANDY PRESSLEY GIULIANA: [id number] [place], [place] [address]Ldk: (HP) [facility] 12/20/2024 SANDY PRESSLEY MARCIB: [place], [place] [address]Fse: () Primary Insurance:[facility] DUAL COMPLETEPolicy Number: [id number] Date:2022-09-04 SANDY PRESSLEY MARCIB: [id number] [place] [address]Esa: () [facility] 12/20/2024 Secondary Insurance:[employer] TRANSPLANT MEDICAREPolicy Number: [id number] Date:2023-08-04 SANDY PRESSLEY MARCIB: [id number] [place], [place] [address]Utn: () [facility] 12/20/2024 SANDY PRESSLEY MARCIB: [place], [place] [address]Dlh: () Primary Insurance:[facility] DUAL COMPLETEPolicy Number: [id number] Date:2022-09-04 SANDY PRESSLEY MARCIB: [id number] [place] [address]Qpx: () [facility] 12/20/2024 Secondary Insurance:[employer] TR[employer]PLANT MEDICAREPolicy Number: [id number] Date:2023-08-04 SANDY PRESSLEY MARCIB: [id number] [place], [place] [address]Xhz: () [facility] 12/05/2024 Primary Insurance:[place] MEDICAIDPolicy Number: [id number] Date:9351-29-50Autt Name:Gloria Oneill MARCIB: [id number] [place] [address] [facility] 12/05/2024 Secondary Insurance:[facility] DUAL COMPLETE HMO POS SNPPolicy Number: [id number] Date:8847-78-52Uvtt Name:Johnny Oneill MRACIB: [id number] [place] [address] [facility] 12/03/2024 Primary Insuranc e:[facility] DUAL COMPLETE HMO POS SNPPolicy Number: [id number] Date:3777-91-71Sijv Name:Johnny Oneill MARCIB: [id number] [place] [address] [facility] 12/03/2024 Secondary Insurance:[place] MEDICAIDPolicy Number: [id number] Date:0522-54-77Pugo Name:Gloria Oneill MARCIB: [id number] [place] [address] [facility] 12/03/2024 Primary Insuranc e:[facility] DUAL COMPLETE HMO POS SNPPolicy Number: [id number] Date:2596-65-92Fwgq Name:Johnny Oneill MARCIB: [id number] [place] [address] [facility] 12/03/2024 Secondary Insurance:[place] MEDICAIDPolicy Number: [id number] Date:8516-16-47Xipa Name:Gloria Oneill MARCIB: [id number] [place] [address] [facility] 11/26/2024 SANDY KAY MARCIB: [place], [place] [address]Aik: () Primary Insurance:[facility] DUAL COMPLETEPolicy Number: [id number] Date:2022-09-04 SANDY COVARRUBAISB: [id number] [place] [address]Err: () [facility] 11/26/2024 Secondary Insurance:[employer]PLANT MEDICAREPolicy Number: [id number] Date:2023-08-04 SANDY PRESSLEY MARCIB: [id number] [place], [place] [address]Mjq: () [facility] 07/25/2024 SANDY PRESSLEY MARCIB: [place], [place] [address]Rmu: () Primary Insurance:[employer] TRANSPLANT MEDICAREPolicy Number: [id number] Date:2023-08-04 SANDY PRESSLEY MARCIB: [id number] [place], [place] [address]Lvs: () [facility] 07/25/2024 SANDY PRESSLEY MARCIB: [place], [place] [address]Ksv: () Primary Insurance:[employer] TRANSPLANT MEDICAREPolicy Number: [id number] Date:2023-05-12 SANDY PRESSLEY MARCIB: [id number] [place], [place] [address]Lsx: () [facility] 07/25/2024 Secondary Insurance:MEDICAIDPol icy Number: [id number] Date:2023-05-05 SANDY PRESSLEY MARCIB: [id number] [place], [place] [address]Vxv: () [facility] 07/23/2024 SANDY PRESSLEY MARCIB: [place], [place] [address]Jfc: () Primary Insurance:[facility] DUAL COMPLETEPolicy Number: [id number] Date:2022-09-04 SANDY PRESSLEY GIULIANA: [id number] [place] [address]Hbn: (HP) [facility] 07/16/2024 SANDY PRESSLEY MARCIB: [place], [place] [address]Mft: () Primary Insurance:[employer]PL[employer] MEDICAREPolicy Number: [id number] Date:2023-05-12 SANDY PRESSLEY MARCIB: [id number] [place], [place] [address]Xcm: () [facility] 07/16/2024 Secondary Insurance:MEDICAIDPol icy Number: [id number] Date:2023-05-05 SANDY PRESSLEY MARCIB: [id number] [place], [place] [address]Chf: () [facility] 07/11/2024 SANDY PRESSLEY MARCIB: [place], [place] [address]Kdq: () Primary Insurance:[facility] DUAL COMPLETEPolicy Number: [id number] Date:2022-09-04 SANDY PRESSLEY GIULIANA: [id number] [place] [address]Nho: () [facility] 07/11/2024 Primary Insuranc e:[facility] DUAL COMPLETE HMO POS SNPPolicy Number: [id number] Date:0164-36-91Aqab Name:Johnny GIORDANO: [id number] [place] [address] [facility] 07/11/2024 Secondary Insurance:[place] MEDICAIDPolicy Number: [id number] Date:7714-28-62Zyga Name:Gloria BRAVOB: [id number] [place] [address] [facility] 07/10/2024 Primary Insuranc e:[facility] DUAL COMPLETE HMO POS SNPPolicy Number: [id number] Date:4404-52-83Kftb Name:Johnny Oneill LUCRETIAMILYB: [id number] [place] [address] [facility] 07/10/2024 Secondary Insurance:[place] MEDICAIDPolicy Number: [id number] Date:0546-30-50Euki Name:Gloria Oneill MARCIB: [id number] [place] [address] [facility] 07/10/2024 Primary Insuranc e:[facility] DUAL COMPLETE HMO POS SNPPolicy Number: [id number] Date:6793-61-56Nxqx Name:Johnny Oneill MARCIB: [id number] [place] [address] [facility] 07/10/2024 Secondary Insurance:[place] MEDICAIDPolicy Number: [id number] Date:9382-63-28Nshn Name:Gloria BRAVOB: [id number] [place] [address] [facility] 06/13/2024 Primary Insuranc e:[facility] DUAL COMPLETE HMO POS SNPPolicy Number: [id number] Date:5995-00-74Txok Name:Johnny BRAVOB: [id number] [place] [address] [facility] 06/13/2024 Secondary Insurance:[place] MEDICAIDPolicy Number: [id number] Date:0726-54-14Keaj Name:Gloria BRAVOB: [id number] [place] [address] [facility] 06/11/2024 Primary Insuranc e:[facility] DUAL COMPLETE HMO POS SNPPolicy Number: [id number] Date:6429-90-66Reim Name:Johnny SANDY Oneill GIULIANA: [id number] [place] [address] [facility] 06/11/2024 Secondary Insurance:[place] MEDICAIDPolicy Number: [id number] Date:4295-62-45Szpn Name:Gloria SANDY Oneill GIULIANA: [id number] [place] [address] [facility]
[2025-05-31 19:29] VITALS: BP 121/42; PULSE 89; RESP 19; TEMP 36.6; O2SAT 98
[2025-05-31 19:35] VITALS: BP 126/45; PULSE 73; RESP 15; TEMP 36.8; O2SAT 100; BMI 23.3
--- NOTE | 2025-05-31 19:39 | CT_ITS ---
PROCEDURE: ABDOMEN/PELVIS W IV CONT ONLY 05/31/2025 REASON FOR EXAM: ABD PAIN LEFT TECHNIQUE: Procedure Code: [id number] Modality: CT Procedure: ABDOMEN/PELVIS W IV CONT ONLY Coronal and Sagittal reconstruction series were provided. CONTRAST: OMNIPAQUE 350 VOLUME: 100 mL One or more dose reduction techniques were used (e.g., Automated exposure control, adjustment of the mA and/or kV according to patient size, use of iterative reconstruction technique. RADIATION DOSE SUMMARY: CTDlvol: 14.6 mGy DLP: 530 mGycm COMPARISON: CT scan on 05/17/2025. FINDINGS: Unchanged moderate bilateral pleural effusions. Unchanged passive atelectatic airspace disease in the lower lobes. Prior cholecystectomy. Mildly dilated biliary tree. Moderate amount of fecal residue in the large bowels. Diffuse thickening of the colon more prominent in the rectosigmoid colon, probably colitis. No evidence of perforation or pneumatosis coli. Unchanged anterior abdominal wall hernia containing a loop of the transverse colon retaining contrast. No definite evidence of associated incarceration. Unchanged chronic bilateral renal atrophy. Gas densities in the bladder and the collecting systems, probably recent instrumentation. Diffuse thickening of the bladder, probably cystitis. Well-defined lytic lesion of T11 vertebral body, probably benign hemangioma, unchanged. Calcified atheromatous plaques of the aorta and iliac arteries. Diffuse spondylosis. Mild amount of free fluid, probably reactive in the pelvis. Normal liver. Normal spleen. Normal pancreas. Normal bilateral adrenal glands. There is no right renal mass. There are no right renal calculi. There is no right hydronephrosis. Normal visualized right ureter. There is no left renal mass. There are no left renal calculi. There is no left hydronephrosis. Normal visualized left ureter. Normal small intestine. Calcified atheromatous plaques of the abdominal aorta. Normal inferior vena cava. Normal retroperitoneum. There is no pelvic mass lesion or lymphadenopathy. CT/Abdomen/Pelvis W IV Cont ONLY IMPRESSION: Unchanged moderate bilateral pleural effusions. Unchanged passive atelectatic airspace disease in the lower lobes. Prior cholecystectomy. Mildly dilated biliary tree. Moderate amount of fecal residue in the large bowels. Diffuse thickening of the colon more prominent in the rectosigmoid colon, proba zachary colitis. No evidence of perforation or pneumatosis coli. Unchanged anterior abdominal wall hernia containing a loop of the transverse co ayaka retaining contrast. No definite evidence of associated incarceration. Unchanged chronic bilateral renal atrophy. Gas densities in the bladder and the collecting systems, probably recent instru mentation. Diffuse thickening of the bladder, probably cystitis. Well-defined lytic lesion of T11 vertebral body, probably benign hemangioma, un changed. Calcified atheromatous plaques of the aorta and iliac arteries. Diffuse spondylosis. Mild amount of free fluid, probably reactive in the pelvis. Reading Location: [facility]
--- NOTE | 2025-05-31 19:40 | EKG12_ITS ---
Test Reason : N/V Blood Pressure : */* mmHG Vent. Rate : 80 BPM Atrial Rate : 80 BPM P-R Int : 162 ms QRS Dur : 136 ms QT Int : 456 ms P-R-T Axes : -13 -49 98 degrees QTcB Int : 525 ms Normal sinus rhythm Right bundle branch block Left anterior fascicular block Bifascicular block Left ventricular hypertrophy ( R in aVL , Romhilt-Good ) T wave abnormality, consider lateral ischemia Abnormal ECG Confirmed by JESSICA VILLANUEVA, MOY ([id number]), photography editor MAYNOR MCNEAL ([id number]) on 06/02/2025 8:41:05 AM Referred By: Confirmed By: MOY LOPEZ MD
--- NOTE | 2025-05-31 19:51 | CT_ITS ---
PROCEDURE: CTA CHEST W/WO CONTRAST 05/31/2025 REASON FOR EXAM: SOB TECHNIQUE: Procedure Code: [id number] Modality: CT Procedure: CTA CHEST W/WO CONTRAST Multiplanar Sagittal and Coronal images were obtained. 3D post processing was performed. CONTRAST: Isovue 370 VOLUME: 100 mL One or more dose reduction techniques were used (e.g., Automated exposure control, adjustment of the mA and/or kV according to patient size, use of iterative reconstruction technique). RADIATION DOSE SUMMARY: DLP: 622.99 mGycm COMPARISON: None. FINDINGS: Pulmonary vessels: No filling defects suspicious for pulmonary arterial emboli. Respiratory motion artifact limits evaluation of the subsegmental branches. Ectatic caliber of the main pulmonary arteries likely reflects pulmonary arterial hypertension. No findings of right heart strain. Lungs/pleura: Small bilateral pleural effusions with adjacent passive atelectasis. No pneumothorax. No airspace consolidation in the aerated lung segments. Patent central airways. Mediastinum: Unremarkable. No significant lymphadenopathy. Heart: Mildly enlarged. No pericardial effusion. Scant coronary artery calcifications. Right subclavian vein and right upper extremity vascular stent graft partially imaged. Thoracic Aorta: Normal in caliber. No aneurysm or dissection. Mild atherosclerotic calcifications. Upper Abdomen: No significant abnormality visualized. See separate abdominal CT report. Bones: Mild nonspecific generalized subcutaneous edema. Mild multilevel degenerative changes of the spine, with slightly exaggerated thoracic kyphosis. Prominent benign osseous hemangioma within the T10 vertebral body noted. CT/CTA Chest W/WO Contrast IMPRESSION: 1. No pulmonary arterial emboli identified. 2. Mild cardiomegaly. Small bilateral pleural effusions. 3. Ectatic caliber of central pulmonary vessels suggesting pulmonary arterial h ypertension. 4. Nonspecific mild generalized subcutaneous edema, possibly third-spacing. Reading Location: [id number]
[2025-05-31 20:23] LABS: Hematocrit 31.0 % (37-47); Hemoglobin 10.1 g/dL (12.0-15.0); Immature Granulocytes Count 0.050 X10^3/uL (0.0-0.0); Mean Corp Hgb Conc 32.6 g/dL (32-36); Mean Corpuscular Volume 90.1 fL (81-99); Mean Platelet Vol. 9.6 fl (6.2-12.0); NRBC Flagged by Analyzer 0 % (0-5); POSITIVE DIFFERENTIAL YES; Platelet Count 223 K/mm3 (150-450); RBC Distribution Width CV 13.3 % (11.6-14.6); RBC Distribution Width SD 43.8 fl (35.1-43.9); Red Blood Count 3.44 M/mm3 (4.2-5.4); White Blood Count 13.5 K/mm3 (4.4-11.0)
[2025-05-31 20:35] VITALS: BP 138/52; PULSE 78; RESP 16; TEMP 36.8; O2SAT 100
[2025-05-31 20:36] LABS: Prothrombin Time (Protime)PT. 13.1 SECONDS (11.7-14.9)
[2025-05-31 20:37] LABS: Partial Thromboplast Time 27.9 Seconds (24.1-36.2)
[2025-05-31 20:56] LABS: AST(SGOT) 33 U/L (<=31); Alanine Aminotransfer ALT/SGPT 17 U/L (<=34); Albumin, Serum 3.8 g/dL (3.4-4.8); Alkaline Phosphatase 219 U/L (35-104); Anion Gap 14 (5-15); BUN 26 mg/dL (4-19); BUN/Creat Ratio 5.6 RATIO (10-20); Calcium,Total 9.8 mg/dL (7.6-11.0); Carbon Dioxide 25.4 mmol/L (21.0-32.0); Chloride 95 mmol/L (98-108); Estimated Creatinine Clearance 10.27 ml/min (50-250); Globulin 2.5 g/dL (2.2-4.2); Glucose 350 mg/dL (70-99); Potassium 4.4 mmol/L (3.3-5.1)
[2025-05-31 20:59] LABS: Troponin T High Sensitivity 175 ng/L (<=14)
[2025-05-31 21:00] VITALS: BP 130/78; PULSE 80; RESP 18; TEMP 36.8; O2SAT 100
--- NOTE | 2025-05-31 21:06 | EDS_ITS ---
HPI History of Present Illness Chief Complaint: Nausea/Vomiting/Diarrhea Narrative Narrative: Patient is a 60-year-old female with past medical history of end-stage renal disease on dialysis Monday, hypertension, depression, GERD, diabetes who presents to the emergency department the chief complaint of abdominal pain and shortness of breath. Patient states that she has not missed any of her dialysis sessions. States that earlier today she developed left- sided abdominal pain that has progressively worsened prompting her to come here for further evaluation management. States that she has at home oxygen as needed but states that she has not had to use this in a significant mount of time but did so today. Patient denies any history of blood clots denies any recent travels. Patient states that she is having diarrhea. [facility] Medical History S/p small bowel obstruction Incarcerated incisional hernia Wears hearing aid in both ears Hypothyroidism Dialysis patient Kidney disease Former smoker Congestive heart failure (CHF) TIA (transient ischemic attack) Problem with dialysis access Hemorrhoids Acid reflux Constipation Anxiety Depression Hypertension Heart disease Diabetes Thyroid disease Home Medications ?Medication ?Instructions ?Recorded ?Last Taken ?Type aspirin 81 mg tablet,delayed 81 mg PO DAILY heart heal th 08/14/18 01/27/25 History release (Adult Low Dose Aspirin) atorvastatin 40 mg tablet 40 mg PO QHS CHOLESTEROL 07/2201/27/25 History vitamin B complex-vitamin C-folic 1 tab PO DAILY SUPPL EMENT 01/11/21 01/27/25 History acid 0.8 mg tablet (Bethanie-Petey) levothyroxine 125 mcg tablet 125 mcg PO DAILY THYROID 05/31/23 01/27/25 History lisinopril 40 mg tablet 40 mg PO DAILY BLOOD PRESSUR E 05/31/23 01/27/25 History sucroferric oxyhydroxide 500 mg 500 mg PO DAILY PHOSPH ATE BINDER 05/31/23 01/27/25 History chewable tablet (Velphoro) amlodipine 10 mg tablet 10 mg PO DAILY blood pressur e 01/28/25 01/27/25 History clonidine HCl 0.2 mg tablet 0.2 mg PO BID blood pressu re 01/28/25 01/27/25 History insulin glargine 100 unit/mL (3 48 unit subcut QHS lety betes 01/28/25 01/27/25 History mL) subcutaneous pen (Lantus Solostar U-100 Insulin) insulin lispro 100 unit/mL 8 unit subcut .COMPLEX diab etes 01/28/25 01/27/25 History subcutaneous pen metoprolol tartrate 25 mg tablet 25 mg PO Q12H blood p ressure 01/28/25 01/27/25 History sumatriptan succinate 50 mg tablet 50 mg PO BID PRN mi graine 01/28/25 Unknown History furosemide 40 mg tablet (Lasix) 40 mg PO DAILY diureti c #90 tabs 01/30/25 Unknown Rx ondansetron 4 mg disintegrating 4 mg PO Q8H PRN PRN Na usea #10 tabs 05/17/25 Unknown Rx tablet oxycodone 5 mg tablet 5 mg PO Q6H PRN pain 3 days #12 05/17/25 Unknown Rx tabs Allergy/AdvReac Type Severity Reaction Status Date / Time Penicillins Allergy Severe Anaphylaxis Verified 05/31/25 19:30 chlorhexidine Allergy Mild rash Verified 05/31/25 19:30 codeine Allergy Unknown Unknown Verified 05/31/25 19:30 latex Allergy Unknown Unknown Verified 05/31/25 19:30 Family History Brother Kidney disease Mother Cancer lung cancer Father Colon cancer Surgical History S/P laparotomy with lysis of adhesions Hx of arteriovenostomy for renal dialysis Hx of bilateral breast reduction surgery History of partial hysterectomy History of bowel resection Hx of appendectomy Hx of cholecystectomy Social History Smoking Status: Former smoker alcohol intake: never substance use type: does not use caffeine: Yes what type of physical activity do you participate in: none frequency: does not exercise ROS ROS ED ROS Narrative Constitutional: Denies fevers, chills, headaches Eyes: Denies double vision blurry vision changes vision Cardiovascular: Denies chest pain or palpitations Respiratory: Complains of shortness of breath as noted above denies coughing Abdomen: Complains of abdominal pain as noted above as well as diarrhea denies nausea vomiting : Denies any urinary symptoms Neurological: Denies any numbness, weakness, tingling Musculoskeletal: Denies back pain Skin: Denies any rashes or lesions EXAM Physical Exam Narrative Exam Narrative: General: Patient was lying in bed rest comfortably did not appear to be in acute distress Head: Atraumatic, normocephalic Eyes: PERRL bilaterally, EOMI bilaterally, no conjunctival injection noted Neck: Soft, supple, trachea midline Cardiovascular: Regular rate and rhythm no murmurs gallops rubs noted Respiratory: Clear to auscultation bilaterally no rales rhonchi or wheezes noted Abdomen: Soft, nondistended, tenderness to palpation of left lower quadrant Extremities: +5/5 strength noted in the bilateral lower extremities Neurological: Patient follow commands that she has at [facility] year is 2024 Skin: Warm, dry, intact no rashes or lesions noted Const Vital Signs: 05/31/25 19:29 05/31/25 19:35 05/31/25 19:40 Temperature 97.8 F 98.2 F Temperature Source Oral Oral Pulse Rate 89 73 Respiratory Rate 19 H 15 Blood Pressure 121/42 H 126/45 H Blood Pressure Mean 68 72 Pulse Ox 98 100 Oxygen Delivery Method Nasal Cannula Nasal Cannula Nasal Cannula Oxygen Flow Rate (L/min) 2 2 2 05/31/25 20:35 05/31/25 21:00 05/31/25 22:00 Temperature 98.2 F 98.2 F 99.1 F Temperature Source Oral Oral Oral Pulse Rate 78 80 69 Respiratory Rate 16 18 18 Blood Pressure 138/52 H 130/78 H 119/47 L Blood Pressure Mean 80 95 71 Pulse Ox 100 100 96 Oxygen Delivery Method Room Air Room Air Room Air Oxygen Flow Rate (L/min) MDM MDM MDM Narrative Medical decision making narrative: Patient is a 60-year-old female who presents to the emergency department chief plaint shortness of breath and abdominal pain. On the differential diagnosis includes but not limited to bowel obstruction, diverticulitis, perforated diverticulum, pulmonary embolism, CHF, pneumonia, pneumothorax. Once workup is obtained reviewed she will be reevaluated. Patient be given 1 L of IV fluids which was ordered at 1939 as she is a dialysis patient and do not want to volume overload her. Patient's CBC was reviewed which showed leukocytosis of 13,000, hemoglobin 10.1, plate count of 223. Patient INR normal at 1, PT of 13.1. Patient sodium is 135, potassium 4.4, creatinine is 4.55 she is dialysis patient, lactic acid elevated 2.4, AST and ALT are 33 and 17 respectively, troponin was elevated to 175 however this is likely secondary to her kidney function she has no chest pain currently and her EKG reviewed showed sinus rhythm with a rate of 80 bpm with evidence of right bundle branch block with nonspecific ST changes noted. This was compared to previous EKG from 05/19/2025 and is largely unchanged. Patient's total bilirubin normal at 0.43. Nursing has had a significant difficulty in placing IV multiple people have a ttempted and at 10:34 PM an ultrasound-guided IV was placed. Patient's CT scans are pending at this point time these will be signed out to overnight provider see note for ultimate disposition details. Lab Data Labs: Laboratory Results - last 24 hr 05/31/25 05/31/25 20:30 Unknown WBC 13.5 H RBC 3.44 L Hgb 10.1 L Hct 31.0 L MCV 90.1 MCH 29.4 MCHC 32.6 RDW Std Deviation 43.8 RDW Coeff of Alvina 13.3 Plt Count 223 MPV 9.6 Immature Gran % (Auto) 0.400 Neut % (Auto) 89.8 H Lymph % (Auto) 2.7 L Crisp % (Auto) 6.9 Eos % (Auto) 0.0 Baso % (Auto) 0.2 Absolute Neuts (auto) 12.2 H Absolute Lymphs (auto) 0.37 L Nucleated RBC % 0 PT 13.1 INR 1.0 APTT 27.9 Sodium 135 Potassium 4.4 Chloride 95 L Carbon Dioxide 25.4 Anion Gap 14 BUN 26 H Creatinine 4.55 H Estim Creat Clear Calc 10.27 L Est GFR (MDRD) Non-Af 10 L BUN/Creatinine Ratio 5.6 L Glucose 350 H Lactic Acid 2.4 H* Calcium 9.8 Total Bilirubin 0.43 AST 33 H ALT 17 Alkaline Phosphatase 219 H Troponin T High Sens 175 H* Total Protein 6.3 Albumin 3.8 Globulin 2.5 Albumin/Globulin Ratio 1.5 Discharge Plan Triage Chief Complaint: Nausea/Vomiting/Diarrhea ED Provider: Juan Leal Dx/Rx/DC Orders Clinical Impression: Shortness of breath, Abdominal pain, Congestive heart failure (CHF), Diabetes, ESRD (end stage renal disease) on dialysis Prescriptions: No Action aspirin [Adult Low Dose Aspirin] 81 mg tablet,delayed release (DR/EC) 81 mg PO DAILY atorvastatin 40 mg tablet 40 mg PO QHS Bethanie-Petey 0.8 mg Tablet 1 tab PO DAILY lisinopril 40 mg tablet 40 mg PO DAILY Velphoro 500 mg tablet,chewable 500 mg PO DAILY Patient Comments: Takes with dinner levothyroxine 125 mcg tablet 125 mcg PO DAILY sumatriptan succinate 50 mg tablet 50 mg PO BID PRN (Reason: migraine) clonidine HCl 0.2 mg tablet 0.2 mg PO BID amlodipine 10 mg tablet 10 mg PO DAILY insulin lispro 100 unit/mL insulin pen 8 unit SUBCUT .COMPLEX Rx Instructions: INJECT 8 UNITS SUBCUTANEOUSLY THREE TIMES DAILY BEFORE MEALS, Add 1 UNIT for each 50 mg/dl above 150. metoprolol tartrate 25 mg tablet 25 mg PO Q12H insulin glargine [Lantus Solostar U-100 Insulin] 100 unit/mL (3 mL) insulin pen 48 unit subcut QHS furosemide [Lasix] 40 mg tablet 40 mg PO DAILY Qty: 90 0RF ondansetron 4 mg tablet,disintegrating 4 mg PO Q8H PRN PRN (Reason: Nausea) Qty: 10 0RF oxycodone 5 mg tablet 5 mg PO Q6H PRN (Reason: pain) 3 Days Qty: 12 0RF Primary Care Provider: Maldonado Denny Referrals: Maldonado Denny MD [Primary Care Provider, Internal Medicine] Print Language: Indonesian
[2025-05-31 22:00] VITALS: BP 119/47; PULSE 69; RESP 18; TEMP 37.3; O2SAT 96
--- NOTE | 2025-05-31 22:21 | ED.RN ---
unable to do imaging or draw repeat labs for a period of time because patient is extremely difficult to obtain IV access. three RN's have attempted at this time with and without ultrasound. now waiting on physician assistance to obtain access.
[2025-05-31 23:00] VITALS: BP 129/51; PULSE 71; RESP 17; TEMP 36.9; O2SAT 92
[2025-05-31 23:22] LABS: Troponin T High Sens 2 HR 187 ng/L (<=14)
[2025-05-31 23:34] LABS: Mucous, Urine 0 SEEN /hpf (<or=2+)
[2025-05-31 23:35] LABS: Color, Urine Yellow (Yellow); Glucose, Dipstick 50 mg/dl (Normal); Ketone-Dipstick Negative (Negative); Leukocyte Esterase-Dipstick 100 /ul (Negative); Nitrite-Dipstick Negative (Negative); Occult Blood-Urine 25 /ul (Negative); Protein-Dipstick 500 mg/dl (Negative); Specific Gravity, Urine 1.015 (1.002-1.030); Urine Bilirubin Dipstick Negative (Negative)
[2025-06-01] VITALS (12 sets, daily range): BP systolic 106–156; BP diastolic 43–78; PULSE 64–80; RESP 15–18; TEMP 36.6–37.3; O2SAT 95–100; BMI 21.6
[2025-06-01] MEDS: 0.9% Normal Saline (1000mL) 1,000 ML 999 ML IV (00:02)
[2025-06-01 00:17] LABS: Red Blood Cells-Urine 0-5 SEEN /hpf (0-5); Squamous Epithelial Cells - UA 0-5 SEEN /hpf (5-10); Transitional Epithelial - Ur 0-5 SEEN /hpf (0-5)
[2025-06-01 00:28] LABS: Reflex Lactate? Y
[2025-06-01 00:54] LABS: Troponin T High Sens 4 HR 169 ng/L (<=14)
--- NOTE | 2025-06-01 02:05 | HP.PCM.HOS_ITS ---
[facility] Date of Service: 06/01/25 Chief Complaint: Nausea, Vomiting and Diarrhea. [facility] Narrative GIULIANA BRAVO, is a 60 F with a past medical history of essential hypertension; on amlodipine, lisinopril, furosemide, metoprolol BID and clonidine BID, hyperlipidemia; on atorvastatin, hypothyroidism; on levothyroxine, DM-2; of unknown control on insulin lispro plus insulin glargine 48U sq nightly, ESRD; on HD () s/p LUE AV-fistula (2018), anemia of chronic disease, history of TIA, former tobacco abuse, history of depression with anxiety; currently not on treatment, migraine headaches; on sumatriptan prn BID, history of SBO, history of ventral incisional hernia, history of laparotomy for lysis of adhesions, OA; on prn oxycodone q. 6 hours prn and recent admission here from May 19, 2025 to May 21, 2025 for treatment of AE CHF; with preserved LVEF of ~55% complicated by bilateral pleural effusion, hypomagnesemia and hyperkalemia after she missed hemodialysis on May 14, 2025 who now re-presents to [facility] ER complaining of nausea, vomiting and diarrhea. Ms. Bravo reports her symptoms began during daylight hours of May 31, 2025 with the abrupt-onset of Left-sided abdominal pain that progressively worsened causing her to come in for further evaluation and treatment. She then developed nausea and vomiting with bilious emesis followed by nonbloody diarrhea. She denies missing hemodialysis, recent significant travel or known sick contacts. She also admits to associated shortness of breath but she denies related fever, chills, changes in vision, runny nose, sore throat, ear pain, chest pain, palpitations, dysuria, hematuria, headache or rash. In the ER she was noted to have Leukocytosis of 13.5 K with Lactic Acidosis of 2.6 mmol/L with a corresponding UA that revealed Acute Cystitis; without hematuria along with a CT scan of the abdomen and pelvis with IV contrast that revealed gas densities in the bladder and the collecting system with diffuse thickening of the bladder, probably cystitis with unchanged moderate bilateral pleural effusions, mildly dilated biliary tree, moderate amount of fecal residue in large bowel with diffuse thickening of the colon more prominent in the rectosigmoid, probably colitis with an unchanged anterior abdominal wall hernia containing a loop of transverse colon retaining contrast with no definite evidence of associated incarceration followed by CT of the chest with IV contrast that revealed no evidence of pulmonary emboli with mild cardiomegaly and small bilateral pleural effusions with ectatic caliber of the central pulmonary vessels suggesting pulmonary arterial hypertension and nonspecific mild generalized subcutaneous anemia, possibly third-spacing. She was then admitted to the PCU for treatment under the Sepsis protocol for stay that is expected to extend beyond 2 midnights. [facility] Medical History S/p small bowel obstruction Incarcerated incisional hernia Wears hearing aid in both ears Hypothyroidism Dialysis patient Kidney disease Former smoker Congestive heart failure (CHF) TIA (transient ischemic attack) Problem with dialysis access Hemorrhoids Acid reflux Constipation Anxiety Depression Hypertension Heart disease Diabetes Thyroid disease Home Medications ?Medication ?Instructions ?Recorded ?Last Taken ?Type aspirin 81 mg tablet,delayed 81 mg PO DAILY heart heal th 08/14/18 01/27/25 History release (Adult Low Dose Aspirin) atorvastatin 40 mg tablet 40 mg PO QHS CHOLESTEROL 07/2201/27/25 History vitamin B complex-vitamin C-folic 1 tab PO DAILY SUPPL EMENT 01/11/21 01/27/25 History acid 0.8 mg tablet (Bethanie-Petey) levothyroxine 125 mcg tablet 125 mcg PO DAILY THYROID 05/31/23 01/27/25 History lisinopril 40 mg tablet 40 mg PO DAILY BLOOD PRESSUR E 05/31/23 01/27/25 History sucroferric oxyhydroxide 500 mg 500 mg PO DAILY PHOSPH ATE BINDER 05/31/23 01/27/25 History chewable tablet (Velphoro) amlodipine 10 mg tablet 10 mg PO DAILY blood pressur e 01/28/25 01/27/25 History clonidine HCl 0.2 mg tablet 0.2 mg PO BID blood pressu re 01/28/25 01/27/25 History insulin glargine 100 unit/mL (3 48 unit subcut QHS lety betes 01/28/25 01/27/25 History mL) subcutaneous pen (Lantus Solostar U-100 Insulin) insulin lispro 100 unit/mL 8 unit subcut .COMPLEX diab etes 01/28/25 01/27/25 History subcutaneous pen metoprolol tartrate 25 mg tablet 25 mg PO Q12H blood p ressure 01/28/25 01/27/25 History sumatriptan succinate 50 mg tablet 50 mg PO BID PRN mi graine 01/28/25 Unknown History furosemide 40 mg tablet (Lasix) 40 mg PO DAILY diureti c #90 tabs 01/30/25 Unknown Rx ondansetron 4 mg disintegrating 4 mg PO Q8H PRN PRN Na usea #10 tabs 05/17/25 Unknown Rx tablet oxycodone 5 mg tablet 5 mg PO Q6H PRN pain 3 days #12 05/17/25 Unknown Rx tabs clonidine HCl 0.1 mg tablet 0.1 mg PO QHS 06/01/25 Unk nown History Allergy/AdvReac Type Severity Reaction Status Date / Time Penicillins Allergy Severe Anaphylaxis Verified 05/31/25 19:30 chlorhexidine Allergy Mild rash Verified 05/31/25 19:30 codeine Allergy Unknown Unknown Verified 05/31/25 19:30 latex Allergy Unknown Unknown Verified 05/31/25 19:30 Family History Brother Kidney disease Mother Cancer lung cancer Father Colon cancer Surgical History S/P laparotomy with lysis of adhesions Hx of arteriovenostomy for renal dialysis Hx of bilateral breast reduction surgery History of partial hysterectomy History of bowel resection Hx of appendectomy Hx of cholecystectomy Social History Smoking Status: Former smoker alcohol intake: never substance use type: does not use caffeine: Yes what type of physical activity do you participate in: none frequency: does not exercise ROS ROS Narrative Review of Systems: Constitutional: Patient denies fever or chills. Eyes: Patient denies change in vision or discharge from eyes. ENT: Patient denies runny nose, sore throat or ear pain. Resp: Patient admits to shortness of breath but denies cough. CV: Patient denies chest pain, palpitations, heart racing or lower extremity edema. GI: Patient admits to abdominal pain with nausea, vomiting and nonbloody diarrhea as per HPI. : Patient denies dysuria or hematuria. MSK: Patient denies arthralgias or myalgias. Skin: Patient denies rash, abscess, wounds or jaundice. Psych: Patient denies symptoms uncontrolled depression or anxiety. Neuro: Patient denies headache, paresthesias or focal neurologic deficits. Allergy: Patient denies lip swelling, tongue swelling or urticaria. Hematology: Patient denies easy bleeding or easy bruisability. Endocrinology: Patient denies polyuria, polydipsia, polyphagia or heat/cold intolerance. 14 point ROS otherwise negative except for positives noted above in HPI. Vital Signs Vital Signs Vital Signs: 05/31/25 19:29 05/31/25 19:35 05/31/25 19:40 Temperature 97.8 F 98.2 F Temperature Source Oral Oral Pulse Rate 89 73 Respiratory Rate 19 H 15 Blood Pressure 121/42 H 126/45 H Blood Pressure Mean 68 72 Pulse Ox 98 100 Oxygen Delivery Method Nasal Cannula Nasal Cannula Nasal Cannula Oxygen Flow Rate (L/min) 2 2 2 05/31/25 20:35 05/31/25 21:00 05/31/25 22:00 Temperature 98.2 F 98.2 F 99.1 F Temperature Source Oral Oral Oral Pulse Rate 78 80 69 Respiratory Rate 16 18 18 Blood Pressure 138/52 H 130/78 H 119/47 L Blood Pressure Mean 80 95 71 Pulse Ox 100 100 96 Oxygen Delivery Method Room Air Room Air Room Air Oxygen Flow Rate (L/min) 05/31/25 23:00 06/01/25 00:00 06/01/25 00:00 Temperature 98.5 F 98.3 F 98.7 F Temperature Source Oral Oral Oral Pulse Rate 71 67 67 Respiratory Rate 17 15 16 Blood Pressure 129/51 H 125/45 H 125/45 H Blood Pressure Mean 77 71 71 Pulse Ox 92 100 97 Oxygen Delivery Method Room Air Nasal Cannula Nasal Cannula Oxygen Flow Rate (L/min) 2 2 06/01/25 01:00 Temperature 98.6 F Temperature Source Oral Pulse Rate 65 Respiratory Rate 18 Blood Pressure 118/46 L Blood Pressure Mean 70 Pulse Ox 95 Oxygen Delivery Method Nasal Cannula Oxygen Flow Rate (L/min) 2 Weight Weight: 127 lb 10.362 oz Body Mass Index (BMI) 23.3 Physical Exam Const alert, oriented x3, no apparent distress and average body habitus Constitutional Narrative: Patient appears older than her stated age with nontoxic appearance. General Appearance: cooperative HEENT normocephalic, head/scalp atraumatic, hearing grossly normal bilaterally and moist oral mucous membranes Eyes PERRL, EOMs intact bilaterally and conjunctivae normal Neck no lymphadenopathy and supple Resp normal respiratory effort, no retractions, no use of accessory muscles and clear to auscultation bilaterally Cardio regular rate and regular rhythm GI GI Narrative: Mild tenderness to palpation of the Left lower quadrant of the abdomen otherwise soft, nondistended and with no guarding or rebound. Extremity normal to inspection, full ROM and no clubbing, cyanosis or edema Skin Skin Narrative: Patient has no evidence of rash, abscess, wounds or jaundice. Neuro oriented x3, CN's II-XII intact bilaterally, moves all extremities and no focal motor deficits Sensorium / Orientation: awake, alert, oriented to person, oriented to place and oriented to time Speech: speech normal Psych affect normal Results Medical Records Data Attestation: I reviewed the patient's medical records Lab / Micro Data Attestation: I reviewed the patient's lab results. 05/31/25 Unknown 05/31/25 Unknown Labs: Laboratory Results - last 24 hr 05/31/25 20:30: Lactic Acid 2.4 H* 05/31/25 22:34: Troponin T Hi Sens 2 Hr 187 H* 05/31/25 23:29: Urine Color Yellow, Urine Clarity Sl. Cloudy, Urine pH 6.5, Ur Specific [place] 1.015, Urine Protein 500 H, Urine Glucose (UA) 50 H, Urine Ketones Negative, Urine Occult Blood 25 H, Urine Nitrite Negative, Urine Bilirubin Negative, Urine Urobilinogen 1 H, Ur Leukocyte Esterase 100 H, Urine RBC 0-5 SEEN, Urine WBC 5-10 SEEN, Ur Squamous Epith Cells 0-5 SEEN, Ur Transition Epith Cell 0-5 SEEN, Urine Bacteria 3+, Urine Mucus 0 SEEN 05/31/25 : WBC 13.5 H, RBC 3.44 L, Hgb 10.1 L, Hct 31.0 L, MCV 90.1, MCH 29.4, MCHC 32.6, RDW Std Deviation 43.8, RDW Coeff of [place] 13.3, Plt Count 223, MPV 9.6, Immature Gran % (Auto) 0.400, Neut % (Auto) 89.8 H, Lymph % (Auto) 2.7 L, Cottle % (Auto) 6.9, Eos % (Auto) 0.0, Baso % (Auto) 0.2, Absolute Neuts (auto) 12.2 H, Absolute Lymphs (auto) 0.37 L, Nucleated RBC % 0, PT 13.1, INR 1.0, APTT 27.9, Sodium 135, Potassium 4.4, Chloride 95 L, Carbon Dioxide 25.4, Anion Gap 14, BUN 26 H, Creatinine 4.55 H, Estim Creat Clear Calc 10.27 L, Est GFR (MDRD) Non-Af 10 L, BUN/Creatinine Ratio 5.6 L, Glucose 350 H, Calcium 9.8, Total Bilirubin 0.43, AST 33 H, ALT 17, Alkaline Phosphatase 219 H, Troponin T High Sens 175 H*, Total Protein 6.3, Albumin 3.8, Globulin 2.5, Albumin/Globulin Ratio 1.5 06/01/25 00:10: Troponin T Hi Sens 4Hr 169 H* 06/01/25 00:45: Lactic Acid 2.6 H* Imaging Radiology Impression Abdomen/Pelvis CT 05/31/25 19:39 IMPRESSION: Unchanged moderate bilateral pleural effusions. Unchanged passive atelectatic airspace disease in the lower lobes. Prior cholecystectomy. Mildly dilated biliary tree. Moderate amount of fecal residue in the large bowels. Diffuse thickening of the colon more prominent in the rectosigmoid colon, probably colitis. No evidence of perforation or pneumatosis coli. Unchanged anterior abdominal wall hernia containing a loop of the transverse colon retaining contrast. No definite evidence of associated incarceration. Unchanged chronic bilateral renal atrophy. Gas densities in the bladder and the collecting systems, probably recent instrumentation. Diffuse thickening of the bladder, probably cystitis. Well-defined lytic lesion of T11 vertebral body, probably benign hemangioma, unchanged. Calcified atheromatous plaques of the aorta and iliac arteries. Diffuse spondylosis. Mild amount of free fluid, probably reactive in the pelvis. [facility] 05/31/25 19:51 IMPRESSION: 1. No pulmonary arterial emboli identified. 2. Mild cardiomegaly. Small bilateral pleural effusions. 3. Ectatic caliber of central pulmonary vessels suggesting pulmonary arterial hypertension. 4. Nonspecific mild generalized subcutaneous edema, possibly third-spacing. Reading Location: [id number] Assessment & Plan Assessment/Plan (1) Sepsis: QUALIFIERS: Sepsis type: sepsis due to unspecified organism S epsis acute organ dysfunction status: without acute organ dysfunction Qualified Code(s): A41.9 - Sepsis, unspecified organism (2) Acute cystitis without hematuria: (3) Lactic acidosis: (4) Colitis: (5) Abdominal pain: QUALIFIERS: Abdominal location: left lower quadrant Qualified Code(s): R10.32 - Left lower quadrant pain (6) Nausea and vomiting: QUALIFIERS: Vomiting type: bilious vomiting Qualified Code(s): R 11.14 - Bilious vomiting (7) Diarrhea: QUALIFIERS: Diarrhea type: presumed infectious Qualified Code(s): R19.7 - Diarrhea, unspecified (8) Hyperglycemia due to type 2 diabetes mellitus: QUALIFIERS: 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 Leukocytosis of 13.5 K with Lactic Acidosis of 2.6 mmol/L with a corresponding UA that revealed Acute Cystitis; without hematuria with a CT scan of the abdomen and pelvis with IV contrast that revealed gas densities in the bladder and the collecting system with diffuse thickening of the bladder, probably Cystitis with unchanged moderate bilateral pleural effusions, mildly dilated biliary tree, moderate amount of fecal residue in large bowel with diffuse thickening of the colon more prominent in the rectosigmoid, probably Colitis with an unchanged anterior abdominal wall hernia containing a loop of transverse colon retaining contrast with no definite evidence of associated incarceration with additional complaints of Abdominal Pain, Nausea, Vomiting and Diarrhea in the setting of previously known ventral abdominal hernia - Admit to PCU under the Sepsis protocol. Continue empiric IV levofloxacin and IV metronidazole to cover Gram-negative organisms and anaerobes given her listed anaphylactic PCN allergy and await culture & sensitivity data. Check stool studies and place on enteric precautions. Start famotidine 20 mg IV daily. Give IV ondansetron prn for nausea and vomiting. Give acetaminophen as needed for [id number] (level 1-5/10) pain or fever. Give morphine IV prn for severe (level 6-10/10) pain. 2. Hyperglycemia of 350 mg/dL present on admission in the setting of previously known DM-2; of unknown control on insulin lispro plus insulin glargine 48U sq nightly complicating #1 - Keep NPO for now except ice, chips, sips and medications 3. ESRD; on HD (--) s/p LUE AV-fistula (2019) compounding #1 & #2 - We will consult nephrology to see this patient on-rounds in the AM since she has received IV contrast dye and will need HD soon in any case with help appreciated in advance. 4. Recent admission here from May 19, 2025 to May 21, 2025 for treatment of AE CHF; with preserved LVEF of ~55% complicated by bilateral pleural effusion, hypomagnesemia and hyperkalemia after she missed hemodialysis on May 14, 2025 adding to the medical complexity of #1 - #3 - Noted with patient denying missing any more HD sessions recently. 5. Essential hypertension; on amlodipine, lisinopril, furosemide, metoprolol BID and clonidine BID - Hold scheduled antihypertensives in light of #1. Give metoprolol IV prn for systolic blood pressure > 160 mmHg. 6. Hyperlipidemia; on atorvastatin - Continue statin. 7. Hypothyroidism; on levothyroxine - Resume levothyroxine and check TSH. 8. Anemia of chronic disease - Stable with hemoglobin of 10.1 g/dL and MCV of 90.1 fL present on admission which are near her baseline levels. 9. History of TIA - Noted with no evidence of recurrence at this time. 10. Former tobacco abuse - Noted. 11. History of depression with anxiety; currently not on treatment - Stable. 12. Migraine headaches; on sumatriptan prn BID - Maintain prn sumatriptan if migraine headache occurs. 13. History of SBO - Noted. 14. History of laparotomy for lysis of adhesions - Noted. 15. OA; on prn oxycodone q. 6 hours prn - We will follow pain regimen outlined in #1. 16. DVT prophylaxis - Heparin 5,000U sq BID plus SCD's. Total time: Approximately (but not less than) 75 minutes. Sepsis Attestation Sepsis Alert: Yes Sepsis Attestation: Sepsis Ruled Out Date exam was performed: 06/01/25 Time exam was performed: 02:50 Possible Source of Sepsis: Genitourinary Sepsis Organ Dysfunction Criteria Present: Creatinine > 2.0 mg/dL and Lactic Acid > 2 mmol/L Supportive Findings: In the ER she was noted to have Leukocytosis of 13.5 K with Lactic Acidosis of 2.6 mmol/L with a corresponding UA that revealed Acute Cystitis; without hematuria along with a CT scan of the abdomen and pelvis with IV contrast that revealed gas densities in the bladder and the collecting system with diffuse thickening of the bladder, probably cystitis with unchanged moderate bilateral pleural effusions, mildly dilated biliary tree, moderate amount of fecal residue in large bowel with diffuse thickening of the colon more prominent in the rectosigmoid, probably colitis with an unchanged anterior abdominal wall hernia containing a loop of transverse colon retaining contrast with no definite evidence of associated incarceration. Fluid Resuscitation Fluid resuscitation indicated?: Yes Fluid Resuscitation ordered: Lesser volume fluid bolus ordered Amount of fluid ordered: 1 Reason for lesser fluid bolus:: Concern for fluid overload (Patient can only tolerate limited fluid bolus due to ESRD on HD.) Sepsis Note Date exam was performed: 06/01/25 Time exam was performed: 06:50 Sepsis Attestation: Sepsis re-evaluation was performed Response to fluids: Fluid responsive hypotension Charges/Coding Visit Charges Inpatient E&M: 77388 Init Hosp L3
[2025-06-01] MEDS: levoFLOXacin IV 750 MG/150 ML BAG 100 MG IV (02:08)
[2025-06-01] MEDS: metroNIDAZOLE 750 MG in Viaflex Bag 1 BAG 150 MG IV (04:25)
[2025-06-01] MEDS: 0.9% Saline Lock 10 ML Syringe IV ×3 (04:59→22:42)
[2025-06-01] MEDS: Famotidine 200 MG/20 ML MDV 20 MG in 0.9% Normal Saline (Pres. free 8 ML 300 MG IV (04:59)
[2025-06-01 05:08] LABS: Magnesium 2.4 mg/dL (1.5-2.2)
[2025-06-01 07:22] LABS: Free T3 2.4 pg/mL (2.18-3.98)
[2025-06-01] MEDS: Folic Acid/Vitamin B Comp W-C 1 Capsule 1 CAP PO (09:48)
[2025-06-01] MEDS: Lactobacillis Acidophilus 1 CAP PO ×4 (09:48→19:49)
[2025-06-01] MEDS: Heparin Injection (Vial) 5,000 UNIT/ML VIAL 5000 UNIT SC ×2 (09:49→19:49)
[2025-06-01] MEDS: Aspirin E.C. 81 MG Tablet PO (09:49)
[2025-06-01 10:06] LABS: Reflex Lactate? Y
[2025-06-01] MEDS: metroNIDAZOLE 500 MG/100 ML BAG 100 MG IV ×2 (14:11→21:02)
--- NOTE | 2025-06-01 15:03 | CON.PCM.RE_ITS ---
Assessment & Plan Assessment/Plan (1) ESRD (end stage renal disease) on dialysis: (2) Colitis: (3) Sepsis: QUALIFIERS: Sepsis type: sepsis due to unspecified organism S epsis acute organ dysfunction status: without acute organ dysfunction Qualified Code(s): A41.9 - Sepsis, unspecified organism PLAN: Plan This is a 60-year-old female with past medical history significant for end-stage renal disease on hemodialysis Monday schedule at [facility] who presented to the emergency room with abdominal pain. Admitted for sepsis/colitis. Nephrology consulted as patient has history of ESRD and for dialysis management. ESRD on HD MWF -HD tomorrow as schedule -electrolytes and volume stable colitis/sepsis -abx per primary team HPI Consult Data Date of Consult: 06/01/25 HPI Narrative Reason for Consultation: esrd HPI Narrative: GIULIANA BRAVO, is a 60 F who presents with abdominal pain. Currently admitted for treatment of colitis. Nephrology consulted for management of ESRD Last HD session on Monday, right AVF recently discharge from hospital on 05/21, chart reviewed [facility] Medical History (Updated 06/01/25 @ 04:15 by Larissa Griffin) Chronic pain Kidney stones On home oxygen therapy Migraines S/p small bowel obstruction Incarcerated incisional hernia Wears hearing aid in both ears Hypothyroidism Dialysis patient Kidney disease Former smoker Congestive heart failure (CHF) TIA (transient ischemic attack) Problem with dialysis access Hemorrhoids Acid reflux Constipation Anxiety Depression Hypertension Heart disease Diabetes Thyroid disease Home Medications ?Medication ?Instructions ?Recorded ?Last Taken ?Type aspirin 81 mg tablet,delayed 81 mg PO DAILY heart heal th 08/14/18 01/27/25 History release (Adult Low Dose Aspirin) atorvastatin 40 mg tablet 40 mg PO QHS CHOLESTEROL 07/2201/27/25 History vitamin B complex-vitamin C-folic 1 tab PO DAILY SUPPL EMENT 01/11/21 01/27/25 History acid 0.8 mg tablet (Bethanie-Petey) levothyroxine 125 mcg tablet 125 mcg PO DAILY THYROID 05/31/23 01/27/25 History lisinopril 40 mg tablet 40 mg PO DAILY BLOOD PRESSUR E 05/31/23 01/27/25 History sucroferric oxyhydroxide 500 mg 500 mg PO DAILY PHOSPH ATE BINDER 05/31/23 01/27/25 History chewable tablet (Velphoro) amlodipine 10 mg tablet 10 mg PO DAILY blood pressur e 01/28/25 01/27/25 History clonidine HCl 0.2 mg tablet 0.2 mg PO BID blood pressu re 01/28/25 01/27/25 History insulin glargine 100 unit/mL (3 48 unit subcut QHS lety betes 01/28/25 01/27/25 History mL) subcutaneous pen (Lantus Solostar U-100 Insulin) insulin lispro 100 unit/mL 8 unit subcut .COMPLEX diab etes 01/28/25 01/27/25 History subcutaneous pen metoprolol tartrate 25 mg tablet 25 mg PO Q12H blood p ressure 01/28/25 01/27/25 History sumatriptan succinate 50 mg tablet 50 mg PO BID PRN mi graine 01/28/25 Unknown History furosemide 40 mg tablet (Lasix) 40 mg PO DAILY diureti c #90 tabs 01/30/25 Unknown Rx ondansetron 4 mg disintegrating 4 mg PO Q8H PRN PRN Na usea #10 tabs 05/17/25 Unknown Rx tablet oxycodone 5 mg tablet 5 mg PO Q6H PRN pain 3 days #12 05/17/25 Unknown Rx tabs OXYGEN - Supplemental ([facility] PRN Low SPO2 06/01/2506/01 History INFORMATIONAL USE ONLY) clonidine HCl 0.1 mg tablet 0.1 mg PO QHS 06/01/25 Unk nown History Allergy/AdvReac Type Severity Reaction Status Date / Time Penicillins Allergy Severe Anaphylaxis Verified 05/31/25 19:30 chlorhexidine Allergy Mild rash Verified 05/31/25 19:30 codeine Allergy Unknown Unknown Verified 05/31/25 19:30 latex Allergy Unknown Unknown Verified 05/31/25 19:30 Family History Brother Kidney disease Mother Cancer lung cancer Father Colon cancer Surgical History (Updated 06/01/25 @ 04:15 by Larissa Griffin) History of appendectomy S/P laparotomy with lysis of adhesions Hx of arteriovenostomy for renal dialysis Hx of bilateral breast reduction surgery History of partial hysterectomy History of bowel resection Hx of appendectomy Hx of cholecystectomy Social History Smoking Status: Former smoker alcohol intake: never substance use type: does not use caffeine: Yes what type of physical activity do you participate in: none frequency: does not exercise Physical Exam Narrative awake, responsive, no acute distress NC present +edema right UE s1s2 regular b/s diminished abdomen tender +LE edema Lab / Micro Data 05/31/25 Unknown 05/31/25 Unknown Labs: Laboratory Results - last 24 hr 05/31/25 20:30: Lactic Acid 2.4 H* 05/31/25 22:34: Troponin T Hi Sens 2 Hr 187 H* 05/31/25 23:29: Urine Color Yellow, Urine Clarity Sl. Cloudy, Urine pH 6.5, Ur Specific [place] 1.015, Urine Protein 500 H, Urine Glucose (UA) 50 H, Urine Ketones Negative, Urine Occult Blood 25 H, Urine Nitrite Negative, Urine Bilirubin Negative, Urine Urobilinogen 1 H, Ur Leukocyte Esterase 100 H, Urine RBC 0-5 SEEN, Urine WBC 5-10 SEEN, Ur Squamous Epith Cells 0-5 SEEN, Ur Transition Epith Cell 0-5 SEEN, Urine Bacteria 3+, Urine Mucus 0 SEEN 05/31/25 : WBC 13.5 H, RBC 3.44 L, Hgb 10.1 L, Hct 31.0 L, MCV 90.1, MCH 29.4, MCHC 32.6, RDW Std Deviation 43.8, RDW Coeff of Alvina 13.3, Plt Count 223, MPV 9.6, Immature Gran % (Auto) 0.400, Neut % (Auto) 89.8 H, Lymph % (Auto) 2.7 L, [place] % (Auto) 6.9, Eos % (Auto) 0.0, Baso % (Auto) 0.2, Absolute Neuts (auto) 12.2 H, Absolute Lymphs (auto) 0.37 L, Nucleated RBC % 0, PT 13.1, INR 1.0, APTT 27.9, Sodium 135, Potassium 4.4, Chloride 95 L, Carbon Dioxide 25.4, Anion Gap 14, BUN 26 H, Creatinine 4.55 H, Estim Creat Clear Calc 10.27 L, Est GFR (MDRD) Non-Af 10 L, BUN/Creatinine Ratio 5.6 L, Glucose 350 H, Calcium 9.8, Total Bilirubin 0.43, AST 33 H, ALT 17, Alkaline Phosphatase 219 H, Troponin T High Sens 175 H*, Total Protein 6.3, Albumin 3.8, Globulin 2.5, Albumin/Globulin Ratio 1.5 06/01/25 00:10: Magnesium 2.4 H, Troponin T Hi Sens 4Hr 169 H*, TSH 6.620 H, Free T4 1.40, Free T3 pg/dL 2.4 06/01/25 00:45: Lactic Acid 2.6 H* 06/01/25 06:01: Lactic Acid 2.3 H* 06/01/25 10:25: Lactic Acid 1.5 Micro: Microbiology 05/31/25 23:29 Urine, Clean Catch Urine Culture - Preliminary Gram negative zack Imaging Radiology Impression Abdomen/Pelvis CT 05/31/25 19:39 IMPRESSION: Unchanged moderate bilateral pleural effusions. Unchanged passive atelectatic airspace disease in the lower lobes. Prior cholecystectomy. Mildly dilated biliary tree. Moderate amount of fecal residue in the large bowels. Diffuse thickening of the colon more prominent in the rectosigmoid colon, probably colitis. No evidence of perforation or pneumatosis coli. Unchanged anterior abdominal wall hernia containing a loop of the transverse colon retaining contrast. No definite evidence of associated incarceration. Unchanged chronic bilateral renal atrophy. Gas densities in the bladder and the collecting systems, probably recent instrumentation. Diffuse thickening of the bladder, probably cystitis. Well-defined lytic lesion of T11 vertebral body, probably benign hemangioma, unchanged. Calcified atheromatous plaques of the aorta and iliac arteries. Diffuse spondylosis. Mild amount of free fluid, probably reactive in the pelvis. [id number] 05/31/25 19:51 IMPRESSION: 1. No pulmonary arterial emboli identified. 2. Mild cardiomegaly. Small bilateral pleural effusions. 3. Ectatic caliber of central pulmonary vessels suggesting pulmonary arterial hypertension. 4. Nonspecific mild generalized subcutaneous edema, possibly third-spacing. Reading Location: [id number]
--- NOTE | 2025-06-01 22:20 | NURSING ---
RN called back to room patient complaining of not being able to swallow and tightness in throat. VSS, no respiratory distress, tongue not swollen, MD notified of Flagyl just finishing up but not first dose and of patient's complaints. ordered NPO, Benadryl, and ST consult
[2025-06-01] MEDS: DiphenhydrAMINE 50 MG/ML Syringe 25 MG IV (22:42)
--- NOTE | 2025-06-01 23:09 | NURSING ---
Benadryl IV given, Patient states she feels better and throat feels better than before, states her throat feels sore so not sure if that was why she is having a hard time swallowing. Patient is NPO until [facility] education was given
[2025-06-02] VITALS (14 sets, daily range): BP systolic 128–158; BP diastolic 45–90; PULSE 71–99; RESP 12–18; TEMP 36.4–37.1; O2SAT 96–100; BMI 21.7; BMI 20.5
[2025-06-02 06:26] LABS: Hematocrit 27.7 % (37-47); Hemoglobin 8.7 g/dL (12.0-15.0); Immature Granulocytes Count 0.040 X10^3/uL (0.0-0.0); Mean Corp Hgb Conc 31.4 g/dL (32-36); Mean Corpuscular Volume 94.2 fL (81-99); Mean Platelet Vol. 9.3 fl (6.2-12.0); NRBC Flagged by Analyzer 0 % (0-5); Platelet Count 169 K/mm3 (150-450); RBC Distribution Width CV 14.1 % (11.6-14.6); RBC Distribution Width SD 48.1 fl (35.1-43.9); Red Blood Count 2.94 M/mm3 (4.2-5.4); White Blood Count 7.8 K/mm3 (4.4-11.0)
[2025-06-02] MEDS: metroNIDAZOLE 500 MG/100 ML BAG 100 MG IV ×3 (06:35→22:10)
[2025-06-02 06:52] LABS: Anion Gap 13 (5-15); BUN 47 mg/dL (4-19); BUN/Creat Ratio 7.4 RATIO (10-20); Calcium,Total 8.5 mg/dL (7.6-11.0); Carbon Dioxide 25.6 mmol/L (21.0-32.0); Chloride 97 mmol/L (98-108); Estimated Creatinine Clearance 7.39 ml/min (50-250); Glucose 92 mg/dL (70-99); Potassium 4.7 mmol/L (3.3-5.1)
[2025-06-02] MEDS: Aspirin E.C. 81 MG Tablet PO (08:21)
[2025-06-02] MEDS: PureFlow B 2K Dialysis Soln 1 BAG 6 BAG PF (09:45)
[2025-06-02] MEDS: 0.9% Normal Saline 1,000 ML IV.SOLN. 1000 ML OPERA.SITE (09:45)
--- NOTE | 2025-06-02 10:13 | PCM.PN.HOSP ---
Subjective Subjective Feels about the same as she did yesterday when she came into the hospital Objective Data Objective Data Vital Signs: Vital Signs Temp Pulse Resp BP Pulse Ox O2 Del Method O2 Flow Rate 97.6 F L 90 12 140/46 H 100 Nasal Cannula 2 06/02/25 08:35 06/02/25 10:00 06/02/25 08:35 06/02/25 10:00 06/02/25 08:35 06/02/25 09:48 06/02/25 09:48 Oxygen Flow Rate (L/min) 2 Oxygen Delivery Method Nasal Cannula Weight: 118 lb 2.684 oz Body Mass Index (BMI) 21.7 Intake & Output: Intake and Output for Last 24 Hours 06/01/25 06/02/25 06/03/25 03:59 03:59 03:59 Intake Total 1550 / 1550 100 / 100 Output Total 0 / 0 Balance 1550 / 1550 100 / 100 Lab / Micro Data 06/02/25 06:17 06/02/25 06:17 Labs: Laboratory Results - last 24 hr 06/01/25 10:25: Lactic Acid 1.5 06/01/25 19:36: POC Glucose 123 H 06/02/25 06:17: WBC 7.8, RBC 2.94 L, Hgb 8.7 L, Hct 27.7 L, MCV 94.2, MCH 29.6, MCHC 31.4 L, RDW Std Deviation 48.1 H, RDW Coeff of Alvina 14.1, Plt Count 169, MPV 9.3, Immature Gran % (Auto) 0.500, Neut % (Auto) 75.9 H, Lymph % (Auto) 14.8 L, [place] % (Auto) 7.3, Eos % (Auto) 1.0, Baso % (Auto) 0.5, Absolute Neuts (auto) 6.0, Absolute Lymphs (auto) 1.16, Nucleated RBC % 0, Sodium 135, Potassium 4.7, Chloride 97 L, Carbon Dioxide 25.6, Anion Gap 13, BUN 47 H, Creatinine 6.32 H, Estim Creat Clear Calc 7.39 L*, Est GFR (MDRD) Non-Af 7 L, BUN/Creatinine Ratio 7.4 L, Glucose 92, Calcium 8.5 06/02/25 06:33: POC Glucose 73 L Micro: Microbiology 05/31/25 23:29 Urine, Clean Catch Urine Culture - Final Escherichia coli Physical Exam Narrative General: Alert, Oriented x3, Cooperative, No apparent distress HEENT: Atraumatic, PERRLA, EOMI, Normocephalic Oral: Moist Mucosa Neck: Supple, No JVD Lungs: Diminished, Normal air movement, No rhonchi, No wheeze, No rales Cardiovascular: Regular rate, Regular Rhythm, Normal S1, Normal S2, No murmurs Abdomen: Soft, Non Tender, Non-Distended, No Hepato-splenomegaly Extremities: No edema, Capillary Refill Less than 3 Seconds Skin: No rashes, No breakdown Musculoskeletal: No Tenderness to Palpation of Joints or Extremities Neurological: No focal neurological deficits, moves all extremities Psych/Mental Status: Normal Affect, Appropriate Assessment & Plan Assessment/Plan (1) Acute cystitis without hematuria: (2) Colitis: PLAN: Plan 1. UTI and colitis ? No sepsis on admission due to insurance ? Continue with broad-spectrum antibiotics ? Enteric pathogen panel is pending 2. Essential HTN/HLD ? Echo in January with an EF of 55 to 60% ? Continue with her p.o. Lasix ? Will restart her Norvasc and clonidine 3. DM2 with ESRD on HD/anemia of chronic disease ? Appreciate nephrology's assistance ? Insulin ? Accu-Cheks ? Will monitor make adjustments as necessary 4. Hypothyroidism ? Stable ? Continue Synthroid DVT: Heparin Charges/Coding Visit Charges Inpatient E&M: 75144 Subs Hosp L2
--- NOTE | 2025-06-02 10:46 | PCM.PN.REN ---
Subjective Subjective Patient seen and examined on dialysis. Tolerating treatment well. No overnight events. Objective Data Objective Data Vital Signs: Vital Signs Temp Pulse Resp BP Pulse Ox O2 Del Method O2 Flow Rate 97.6 F L 91 12 137/50 H 100 Nasal Cannula 2 06/02/25 08:35 06/02/25 10:30 06/02/25 08:35 06/02/25 10:30 06/02/25 08:35 06/02/25 09:48 06/02/25 09:48 Oxygen Flow Rate (L/min) 2 Oxygen Delivery Method Nasal Cannula Weight: 53.6 kg Body Mass Index (BMI) 21.7 Intake & Output: Intake and Output for Last 24 Hours 05/31/25 06/01/25 06/02/25 23:59 23:59 23:59 Intake Total 1550 / 1550 100 / 100 Output Total 0 / 0 Balance 1550 / 1550 100 / 100 Lab / Micro Data 06/02/25 06:17 06/02/25 06:17 Labs: Laboratory Results - last 24 hr 06/01/25 10:25: Lactic Acid 1.5 06/01/25 19:36: POC Glucose 123 H 06/02/25 06:17: WBC 7.8, RBC 2.94 L, Hgb 8.7 L, Hct 27.7 L, MCV 94.2, MCH 29.6, MCHC 31.4 L, RDW Std Deviation 48.1 H, RDW Coeff of Alvina 14.1, Plt Count 169, MPV 9.3, Immature Gran % (Auto) 0.500, Neut % (Auto) 75.9 H, Lymph % (Auto) 14.8 L, [place] % (Auto) 7.3, Eos % (Auto) 1.0, Baso % (Auto) 0.5, Absolute Neuts (auto) 6.0, Absolute Lymphs (auto) 1.16, Nucleated RBC % 0, Sodium 135, Potassium 4.7, Chloride 97 L, Carbon Dioxide 25.6, Anion Gap 13, BUN 47 H, Creatinine 6.32 H, Estim Creat Clear Calc 7.39 L*, Est GFR (MDRD) Non-Af 7 L, BUN/Creatinine Ratio 7.4 L, Glucose 92, Calcium 8.5 06/02/25 06:33: POC Glucose 73 L Micro: Microbiology 05/31/25 23:29 Urine, Clean Catch Urine Culture - Final Escherichia coli Physical Exam Narrative awake, responsive, no acute distress s1s2 regular b/s diminished with faint crackles abdomen tender, soft +LE edema Right arm AV fistula accessed for hemodialysis Assessment & Plan Assessment/Plan (1) ESRD (end stage renal disease) on dialysis: (2) Colitis: (3) Sepsis: QUALIFIERS: Sepsis type: sepsis due to unspecified organism Sepsis acute organ dysfunction status: without acute organ dysfunction Qualified Code(s): A41.9 - Sepsis, unspecified organism PLAN: Plan This is a 60-year-old female with past medical history significant for end-stage renal disease on hemodialysis Monday schedule at [facility] who presented to the emergency room with abdominal pain. Admitted for sepsis/colitis. Nephrology consulted as patient has history of ESRD and for dialysis management. - ESRD on HD MWF at [facility]. Patient undergoing hemodialysis today, tolerating fluid removal, aim UF around 2.5 L. EDW around 51 kg. - Colitis/sepsis; antibiotics per primary team - Anemia of chronic disease; monitor hemoglobin trends Assessment and plan reviewed with Dr. Vasques
[2025-06-02] MEDS: Folic Acid/Vitamin B Comp W-C 1 Capsule 1 CAP PO (13:19)
[2025-06-02] MEDS: Heparin Injection (Vial) 5,000 UNIT/ML VIAL 5000 UNIT SC ×2 (13:19→22:11)
[2025-06-02] MEDS: Famotidine 200 MG/20 ML MDV 20 MG in 0.9% Normal Saline (Pres. free 8 ML 300 MG IV (13:20)
[2025-06-02] MEDS: Lactobacillis Acidophilus 1 CAP PO ×3 (13:20→22:11)
--- NOTE | 2025-06-02 15:51 | CHAPLAIN ---
Type of Pastoral Visit ___ Initial Visit ___ Follow-up Visit ___ On-call Visit ___ General Patient Visit ___ Spiritual Assessment ___ Family Conference ___ Bereavement ___ Rapid Response ___ Code Blue ___ Other (describe below) Pastoral Care Referral From ___ Patient ___ Family ___ Nurse ___ Physician ___ Animal Science Instructor ___ Telephonic Rn ___ Other (describe below) Sacrament/Intervention ___ Active listening ___ Anointing ___ Mosque ___ Bereavement ___ Communion ___ Naida exploration ___ ___ Life review ___ Prayer ___ Reconciliation ___ Sacrament of Sick ___ Supportive presence ___ Wedding ___ Other (describe below) Pastoral Comments patient appears weak but she acknowledges that she was just a patient recently and met the sports broadcaster; pt says that she just needs a prayer and that she has others that are helping her at home
[2025-06-02] MEDS: 0.9% Saline Lock 10 ML Syringe IV (22:11)
[2025-06-03] VITALS (10 sets, daily range): BP systolic 155–179; BP diastolic 55–80; PULSE 79–105; RESP 16–18; TEMP 36.4–37.1; O2SAT 94–98
[2025-06-03] MEDS: 0.9% Saline Lock 10 ML Syringe IV ×6 (03:36→15:31)
[2025-06-03 06:03] LABS: Hematocrit 30.4 % (37-47); Hemoglobin 9.6 g/dL (12.0-15.0); Immature Granulocytes Count 0.030 X10^3/uL (0.0-0.0); Mean Corp Hgb Conc 31.6 g/dL (32-36); Mean Corpuscular Volume 93.8 fL (81-99); Mean Platelet Vol. 9.6 fl (6.2-12.0); NRBC Flagged by Analyzer 0 % (0-5); Platelet Count 206 K/mm3 (150-450); RBC Distribution Width CV 13.5 % (11.6-14.6); RBC Distribution Width SD 46.5 fl (35.1-43.9); Red Blood Count 3.24 M/mm3 (4.2-5.4); White Blood Count 6.3 K/mm3 (4.4-11.0)
[2025-06-03] MEDS: metroNIDAZOLE 500 MG/100 ML BAG 100 MG IV ×3 (06:20→22:29)
[2025-06-03 07:02] LABS: Anion Gap 14 (5-15); BUN 29 mg/dL (4-19); BUN/Creat Ratio 6.4 RATIO (10-20); Calcium,Total 8.9 mg/dL (7.6-11.0); Carbon Dioxide 23.0 mmol/L (21.0-32.0); Chloride 100 mmol/L (98-108); Estimated Creatinine Clearance 10.25 ml/min (50-250); Glucose 117 mg/dL (70-99); Potassium 4.2 mmol/L (3.3-5.1)
--- NOTE | 2025-06-03 08:19 | PCM.PN.HOSP ---
Subjective Subjective No issues overnight, she feels a little bit better today. She does have a UTI that is resistant to micaela quinolones and she has anaphylaxis to penicillins so she was trialed on Rocephin yesterday which she tolerated without incident Objective Data Objective Data Vital Signs: Vital Signs Temp Pulse Resp BP Pulse Ox O2 Del Method O2 Flow Rate 98.5 F 79 16 155/55 H 97 Nasal Cannula 2 06/03/25 03:25 06/03/25 04:45 06/03/25 03:25 06/03/25 04:45 06/03/25 03:25 06/03/25 03:25 06/03/25 03:25 Oxygen Flow Rate (L/min) 2 Oxygen Delivery Method Nasal Cannula Weight: 111 lb 5.335 oz Body Mass Index (BMI) 20.5 Intake & Output: Intake and Output for Last 24 Hours 06/02/25 06/03/25 06/04/25 03:59 03:59 03:59 Intake Total 1550 / 1550 840 / 840 Output Total 0 / 0 3690 / 3690 Balance 1550 / 1550 -2850 / -2850 Lab / Micro Data 06/03/25 04:44 06/03/25 04:44 Labs: Laboratory Results - last 24 hr 06/02/25 11:56: POC Glucose 83 06/02/25 17:16: POC Glucose 145 H 06/02/25 22:08: POC Glucose 152 H 06/03/25 04:44: WBC 6.3, RBC 3.24 L, Hgb 9.6 L, Hct 30.4 L, MCV 93.8, MCH 29.6, MCHC 31.6 L, RDW Std Deviation 46.5 H, RDW Coeff of Alvina 13.5, Plt Count 206, MPV 9.6, Immature Gran % (Auto) 0.500, Neut % (Auto) 74.7 H, Lymph % (Auto) 15.1 L, [place] % (Auto) 7.4, Eos % (Auto) 1.3, Baso % (Auto) 1.0, Absolute Neuts (auto) 4.7, Absolute Lymphs (auto) 0.95, Nucleated RBC % 0, Sodium 137, Potassium 4.2, Chloride 100, Carbon Dioxide 23.0, Anion Gap 14, BUN 29 H, Creatinine 4.56 H, Estim Creat Clear Calc 10.25 L, Est GFR (MDRD) Non-Af 10 L, BUN/Creatinine Ratio 6.4 L, Glucose 117 H, Calcium 8.9 06/03/25 06:18: POC Glucose 113 H Micro: Microbiology 05/31/25 23:29 Urine, Clean Catch Urine Culture - Final Escherichia coli Physical Exam Narrative General: Alert, Oriented x3, Cooperative, No apparent distress HEENT: Atraumatic, PERRLA, EOMI, Normocephalic Oral: Moist Mucosa Neck: Supple, No JVD Lungs: Diminished, Normal air movement, No rhonchi, No wheeze, No rales Cardiovascular: Regular rate, Regular Rhythm, Normal S1, Normal S2, No murmurs Abdomen: Soft, Non Tender, Non-Distended, No Hepato-splenomegaly Extremities: No edema, Capillary Refill Less than 3 Seconds Skin: No rashes, No breakdown Musculoskeletal: No Tenderness to Palpation of Joints or Extremities Neurological: No focal neurological deficits, moves all extremities Psych/Mental Status: Normal Affect, Appropriate Assessment & Plan Assessment/Plan (1) Acute cystitis without hematuria: (2) Colitis: PLAN: Plan 1. UTI due to E. coli and colitis ? No sepsis on admission due to insurance ?She was initially on Levaquin and Flagyl to cover both UTI and colitis however her urine culture is resistant to Cipro and Levaquin and she is anaphylactic to penicillins ? I discussed with her the risk of trying a cephalosporin however she agreed and proceeded with a dose of IV Rocephin which she tolerated without incident ? Will continue with Rocephin and Flagyl and see if she has any symptomatic improvement over the next 24 to 48 hours ? Enteric pathogen panel is pending, however she has not been able to give us stool sample 2. Essential HTN/HLD ? Echo in January with an EF of 55 to 60% ? Continue with her p.o. Lasix ? Will restart her Norvasc and clonidine 3. DM2 with ESRD on HD/anemia of chronic disease ? Appreciate nephrology's assistance ? Insulin ? Accu-Cheks ? Will monitor make adjustments as necessary 4. Hypothyroidism ? Stable ? Continue Synthroid DVT: Heparin Charges/Coding Visit Charges Inpatient E&M: 62922 Subs Hosp L2
[2025-06-03] MEDS: Aspirin E.C. 81 MG Tablet PO (09:51)
[2025-06-03] MEDS: Lactobacillis Acidophilus 1 CAP PO ×3 (09:51→22:29)
[2025-06-03] MEDS: Heparin Injection (Vial) 5,000 UNIT/ML VIAL 5000 UNIT SC ×2 (09:52→22:29)
[2025-06-03] MEDS: Folic Acid/Vitamin B Comp W-C 1 Capsule 1 CAP PO (09:52)
[2025-06-03] MEDS: Famotidine 200 MG/20 ML MDV 20 MG in 0.9% Normal Saline (Pres. free 8 ML 300 MG IV (09:57)
[2025-06-03] MEDS: DiphenhydrAMINE 50 MG/ML Syringe 25 MG IV ×2 (12:20→19:32)
--- NOTE | 2025-06-03 12:47 | PCM.PN.REN ---
Subjective Subjective no new complaints Objective Data Objective Data Vital Signs: Vital Signs Temp Pulse Resp BP Pulse Ox O2 Del Method O2 Flow Rate 98.7 F 94 18 164/57 H 98 Room Air 2 06/03/25 09:49 06/03/25 09:49 06/03/25 09:49 06/03/25 09:49 06/03/25 09:49 06/03/25 09:49 06/03/25 08:45 Oxygen Flow Rate (L/min) 2 Oxygen Delivery Method Room Air Weight: 50.5 kg Body Mass Index (BMI) 20.5 Intake & Output: Intake and Output for Last 24 Hours 06/01/25 06/02/25 06/03/25 23:59 23:59 23:59 Intake Total 1550 / 1550 840 / 840 160 / 160 Output Total 0 / 0 3340 / 3690 350 / 350 Balance 1550 / 1550 -2500 / -2850 -190 / -190 Lab / Micro Data 06/03/25 04:44 06/03/25 04:44 Labs: Laboratory Results - last 24 hr 06/02/25 11:56: POC Glucose 83 06/02/25 17:16: POC Glucose 145 H 06/02/25 22:08: POC Glucose 152 H 06/03/25 04:44: WBC 6.3, RBC 3.24 L, Hgb 9.6 L, Hct 30.4 L, MCV 93.8, MCH 29.6, MCHC 31.6 L, RDW Std Deviation 46.5 H, RDW Coeff of Alvina 13.5, Plt Count 206, MPV 9.6, Immature Gran % (Auto) 0.500, Neut % (Auto) 74.7 H, Lymph % (Auto) 15.1 L, [place] % (Auto) 7.4, Eos % (Auto) 1.3, Baso % (Auto) 1.0, Absolute Neuts (auto) 4.7, Absolute Lymphs (auto) 0.95, Nucleated RBC % 0, Sodium 137, Potassium 4.2, Chloride 100, Carbon Dioxide 23.0, Anion Gap 14, BUN 29 H, Creatinine 4.56 H, Estim Creat Clear Calc 10.25 L, Est GFR (MDRD) Non-Af 10 L, BUN/Creatinine Ratio 6.4 L, Glucose 117 H, Calcium 8.9 06/03/25 06:18: POC Glucose 113 H 06/03/25 11:54: POC Glucose 141 H Micro: Microbiology 05/31/25 23:29 Urine, Clean Catch Urine Culture - Final Escherichia coli Physical Exam Narrative awake, responsive, no acute distress s1s2 regular b/s diminished with faint crackles abdomen tender, soft +LE edema Right arm AV fistula accessed for hemodialysis Assessment & Plan Assessment/Plan (1) ESRD (end stage renal disease) on dialysis: (2) Colitis: (3) Sepsis: QUALIFIERS: Sepsis type: sepsis due to unspecified organism Sepsis acute organ dysfunction status: without acute organ dysfunction Qualified Code(s): A41.9 - Sepsis, unspecified organism PLAN: Plan This is a 60-year-old female with past medical history significant for end-stage renal disease on hemodialysis Monday schedule at [facility] who presented to the emergency room with abdominal pain. Admitted for sepsis/colitis. Nephrology consulted as patient has history of ESRD and for dialysis management. - ESRD on HD MWF at [facility]. Last dialysis was yesterday. Uneventful. Continue as per schedule. Being treated for UTI/pyelonephritis. She says flank pain is better. Right upper extremity edema. On same side as AV graft. She follows with vascular surgery at [facility]. Possible there is some component of central venous stenosis. She says last fistulogram was about 2 months ago.
[2025-06-04] VITALS (14 sets, daily range): BP systolic 137–189; BP diastolic 53–76; PULSE 86–110; RESP 14–20; TEMP 36.4–37.1; O2SAT 93–98; BMI 20.5; BMI 20.7
--- NOTE | 2025-06-04 00:24 | PCM.HOSP.N ---
Hospitalist Note Pt still having itching from rash following administration of Rocephin. Ordered famotidine 40mg PO x1 now and hydroxyzine 10mg PO TID PRN itching and insomnia.
[2025-06-04 06:16] LABS: Hematocrit 29.5 % (37-47); Hemoglobin 9.6 g/dL (12.0-15.0); Immature Granulocytes Count 0.020 X10^3/uL (0.0-0.0); Mean Corp Hgb Conc 32.5 g/dL (32-36); Mean Corpuscular Volume 91.9 fL (81-99); Mean Platelet Vol. 9.3 fl (6.2-12.0); NRBC Flagged by Analyzer 0 % (0-5); Platelet Count 194 K/mm3 (150-450); RBC Distribution Width CV 13.4 % (11.6-14.6); RBC Distribution Width SD 45.8 fl (35.1-43.9); Red Blood Count 3.21 M/mm3 (4.2-5.4); White Blood Count 4.7 K/mm3 (4.4-11.0)
[2025-06-04] MEDS: metroNIDAZOLE 500 MG/100 ML BAG 100 MG IV ×3 (06:21→20:48)
[2025-06-04] MEDS: 0.9% Saline Lock 10 ML Syringe IV ×2 (06:22→23:37)
[2025-06-04] MEDS: DiphenhydrAMINE 50 MG/ML Syringe 25 MG IV ×3 (06:22→23:37)
[2025-06-04 07:03] LABS: Anion Gap 14 (5-15); BUN 38 mg/dL (4-19); BUN/Creat Ratio 6.2 RATIO (10-20); Calcium,Total 8.8 mg/dL (7.6-11.0); Carbon Dioxide 22.6 mmol/L (21.0-32.0); Chloride 99 mmol/L (98-108); Estimated Creatinine Clearance 7.70 ml/min (50-250); Glucose 169 mg/dL (70-99); Potassium 4.3 mmol/L (3.3-5.1)
[2025-06-04] MEDS: PureFlow B 2K Dialysis Soln 1 BAG 6 BAG PF (08:03)
[2025-06-04] MEDS: 0.9% Normal Saline 1,000 ML IV.SOLN. 1000 ML OPERA.SITE (08:03)
--- NOTE | 2025-06-04 08:35 | PCM.PN.HOSP ---
Reason for Visit Chief Complaint: Nausea, Vomiting and Diarrhea. Subjective Subjective Patient is a 60-year-old lady with history of end-stage renal disease on hemodialysis presented with nausea vomiting and diarrhea. An assessment of acute colitis as well as cystitis made admitted to a monitored bed for further management Objective Data Objective Data Vital Signs: Vital Signs Temp Pulse Resp BP Pulse Ox O2 Del Method O2 Flow Rate 98.3 F 88 15 168/64 H 97 Room Air 2 06/04/25 07:58 06/04/25 08:00 06/04/25 08:00 06/04/25 08:00 06/04/25 08:00 06/04/25 08:00 06/03/25 08:45 Oxygen Flow Rate (L/min) 2 Oxygen Delivery Method Room Air Weight: 50.5 kg Body Mass Index (BMI) 20.5 Intake & Output: Intake and Output for Last 24 Hours 06/02/25 06/03/25 06/04/25 23:59 23:59 23:59 Intake Total 840 / 840 860 / 860 100 / 100 Output Total 3340 / 3690 350 / 350 Balance -2500 / -2850 510 / 510 100 / 100 Lab / Micro Data 06/04/25 04:54 06/04/25 04:54 Labs: Laboratory Results - last 24 hr 06/03/25 11:54: POC Glucose 141 H 06/03/25 17:27: POC Glucose 142 H 06/03/25 22:27: POC Glucose 189 H 06/04/25 04:54: WBC 4.7, RBC 3.21 L, Hgb 9.6 L, Hct 29.5 L, MCV 91.9, MCH 29.9, MCHC 32.5, RDW Std Deviation 45.8 H, RDW Coeff of Alvina 13.4, Plt Count 194, MPV 9.3, Immature Gran % (Auto) 0.400, Neut % (Auto) 67.9, Lymph % (Auto) 18.9 L, [place] % (Auto) 9.8, Eos % (Auto) 1.9, Baso % (Auto) 1.1 H, Absolute Neuts (auto) 3.2, Absolute Lymphs (auto) 0.89, Nucleated RBC % 0, Sodium 136, Potassium 4.3, Chloride 99, Carbon Dioxide 22.6, Anion Gap 14, BUN 38 H, Creatinine 6.07 H, Estim Creat Clear Calc 7.70 L*, Est GFR (MDRD) Non-Af 7 L, BUN/Creatinine Ratio 6.2 L, Glucose 169 H, Calcium 8.8 06/04/25 06:17: POC Glucose 172 H Micro: Microbiology 05/31/25 20:45 Blood Culture (Wb) - Anticubital Left Blood Culture - Preliminary No growth in 48 hours. 05/31/25 20:30 Blood Culture (Wb) - Arm Left Blood Culture - Preliminary No growth in 48 hours. 05/31/25 23:29 Urine, Clean Catch Urine Culture - Final Escherichia coli Physical Exam Narrative GENERAL: Ill looking HEENT: Atraumatic; normocephalic EYES; Anicteric, Normal Conjunctiva NECK; supple, normal thyroid, RESPIRATORY: Diminished to auscultation CARDIOVASCULAR: Regular S1 S2, GI: soft, normoactive bowel sounds, : No Renal angle tenderness; EXTREMITIES: AV fistula right arm MUSCULOSKELETAL: no muscle wasting NEURO: Awake; no lateralizing signs. SKIN: No Rash PSYCH; Flat affect Assessment & Plan Assessment/Plan (1) Acute cystitis without hematuria: (2) Colitis: PLAN: Plan Patient is a 60-year-old lady with history of end-stage renal disease on hemodialysis presented with nausea vomiting and diarrhea. An assessment of acute colitis as well as cystitis made admitted to a monitored bed for further management 1. Acute complicated cystitis with UTI ? Patient was started on Levaquin initially however the E. coli was resistant to flow quinolones subsequently discontinued patient started on ceftriaxone. Patient however did develop rash on the neck and extremities. Ceftriaxone held consult placed to ID 2. Acute colitis ? Treated with ceftriaxone as well as Flagyl stool studies sent 3. Chronic congestive heart failure with preserved ejection fraction ? 2D echo from patient admission in January demonstrated estimated ejection fraction of 55-60 %. Overall normal LV systolic function No significant valvular abnormality noted. Patient was on admission last month for CHF exacerbation currently remains stable 4. End-stage renal disease on hemodialysis ? Dialysis days Wednesdays and Fridays. Consult placed to nephrology for dialysis orders. Ordered daily BMP for subsequent eval 5. Diabetes mellitus type II Patient is on long-acting insulin as well as scheduled short acting insulin did continue with home regimen. In addition patient was placed on Accu-Cheks a.c. and at bedtime and covered with sliding scale insulin 6. Hypertension ? Blood pressure control not optimal, resume home medication added hydralazine as needed for systolic blood pressure greater than 160 7. Hypothyroidism ? Patient is on levothyroxine home dose continued 8. Depression with anxiety ? Per history patient currently not on any treatment 9 Dyslipidemia ?Patient is on statin therapy, continued at home dose 10. Anemia ? Secondary to chronic disorder monitoring H&H and transfuse if patient becomes symptomatic or hemoglobin falls below 7 11. DVT prophylaxis ? Subcu heparin Time spent in the patient's overall evaluation,decision-making process, review of diagnostic data, adjustment of management, discussion with other providers, nursing nursing and ancillary staff involved in patient's care documentation, 42 Minutes Charges/Coding Visit Charges Inpatient E&M: 18276 Subs Hosp L2
--- NOTE | 2025-06-04 10:53 | PCM.PN.REN ---
Subjective Subjective No new events Objective Data Objective Data Vital Signs: Vital Signs Temp Pulse Resp BP Pulse Ox O2 Del Method O2 Flow Rate 98.3 F 92 15 177/63 H 97 Room Air 2 06/04/25 07:58 06/04/25 10:30 06/04/25 08:00 06/04/25 10:30 06/04/25 10:30 06/04/25 10:30 06/03/25 08:45 Oxygen Flow Rate (L/min) 2 Oxygen Delivery Method Room Air Weight: 50.5 kg Body Mass Index (BMI) 20.5 Intake & Output: Intake and Output for Last 24 Hours 06/02/25 06/03/25 06/04/25 23:59 23:59 23:59 Intake Total 840 / 840 860 / 860 100 / 100 Output Total 3340 / 3690 350 / 350 Balance -2500 / -2850 510 / 510 100 / 100 Lab / Micro Data 06/04/25 04:54 06/04/25 04:54 Labs: Laboratory Results - last 24 hr 06/03/25 11:54: POC Glucose 141 H 06/03/25 17:27: POC Glucose 142 H 06/03/25 22:27: POC Glucose 189 H 06/04/25 04:54: WBC 4.7, RBC 3.21 L, Hgb 9.6 L, Hct 29.5 L, MCV 91.9, MCH 29.9, MCHC 32.5, RDW Std Deviation 45.8 H, RDW Coeff of Alvina 13.4, Plt Count 194, MPV 9.3, Immature Gran % (Auto) 0.400, Neut % (Auto) 67.9, Lymph % (Auto) 18.9 L, [place] % (Auto) 9.8, Eos % (Auto) 1.9, Baso % (Auto) 1.1 H, Absolute Neuts (auto) 3.2, Absolute Lymphs (auto) 0.89, Nucleated RBC % 0, Sodium 136, Potassium 4.3, Chloride 99, Carbon Dioxide 22.6, Anion Gap 14, BUN 38 H, Creatinine 6.07 H, Estim Creat Clear Calc 7.70 L*, Est GFR (MDRD) Non-Af 7 L, BUN/Creatinine Ratio 6.2 L, Glucose 169 H, Calcium 8.8 06/04/25 06:17: POC Glucose 172 H Micro: Microbiology 05/31/25 20:45 Blood Culture (Wb) - Anticubital Left Blood Culture - Preliminary No growth in 48 hours. 05/31/25 20:30 Blood Culture (Wb) - Arm Left Blood Culture - Preliminary No growth in 48 hours. 05/31/25 23:29 Urine, Clean Catch Urine Culture - Final Escherichia coli Physical Exam Narrative awake, responsive, no acute distress s1s2 regular b/s diminished with faint crackles abdomen tender, soft +LE edema Right arm AV fistula accessed for hemodialysis Assessment & Plan Assessment/Plan (1) ESRD (end stage renal disease) on dialysis: (2) Colitis: (3) Sepsis: QUALIFIERS: Sepsis type: sepsis due to unspecified organism Sepsis acute organ dysfunction status: without acute organ dysfunction Qualified Code(s): A41.9 - Sepsis, unspecified organism PLAN: Plan This is a 60-year-old female with past medical history significant for end-stage renal disease on hemodialysis Monday schedule at [facility] who presented to the emergency room with abdominal pain. Admitted for sepsis/colitis. Nephrology consulted as patient has history of ESRD and for dialysis management. - ESRD on HD MWF at [facility]. Last dialysis was yesterday. Uneventful. Continue as per schedule. Being treated for UTI/pyelonephritis. She says flank pain is better. Right upper extremity edema. On same side as AV graft. She follows with vascular surgery at [facility]. Possible there is some component of central venous stenosis. She says last fistulogram was about 2 months ago. 06/04/2025. Dialysis today, discussed with staff.
[2025-06-04] MEDS: Aspirin E.C. 81 MG Tablet PO (12:09)
[2025-06-04] MEDS: Lactobacillis Acidophilus 1 CAP PO ×4 (12:10→20:46)
[2025-06-04] MEDS: Smz/Tmp Ds Tablet 0.5 TABLET PO (12:10)
[2025-06-04] MEDS: Heparin Injection (Vial) 5,000 UNIT/ML VIAL 5000 UNIT SC ×2 (12:14→20:47)
[2025-06-04] MEDS: Folic Acid/Vitamin B Comp W-C 1 Capsule 1 CAP PO (12:17)
--- NOTE | 2025-06-04 13:15 | CON.PCM.ID_ITS ---
Assessment & Plan Assessment/Plan (1) Diarrhea: QUALIFIERS: Diarrhea type: presumed infectious Qualified Code(s): R19.7 - Diarrhea, unspecified (2) Urinary tract infection: (3) Sepsis: QUALIFIERS: Sepsis type: sepsis due to unspecified organism S epsis acute organ dysfunction status: without acute organ dysfunction Qualified Code(s): A41.9 - Sepsis, unspecified organism PLAN: Colitis and possible cystitis seen on CT. Ucx with ecoli. Feeling better, stool panel pending. No recent abx and no h/o cdiff. Cont bactrim and flagyl. Had rash with ceftriaxone here. Will follow, thank you (4) Nausea and vomiting: QUALIFIERS: Vomiting type: bilious vomiting Qualified Code(s): R 11.14 - Bilious vomiting (5) ESRD (end stage renal disease) on dialysis: HPI Consult Data Date of Consult: 06/04/25 HPI Narrative Reason for Consultation: colitis HPI Narrative: GIULIANA BRAVO, is a 60 F with h/o ESRD on HD MWF, presented with two day h/o n/v/d. No sick contacts, no unusual food, no recent travel. No blood in stool. Denies any dysuria. Some mild LLQ abd pain. No fever or chills. Came to ED, admitted on ceftriaxone but developed rash. Now on bactrim and flagyl, feeling better, no further diarrhea, but nursing reports some melena. Full ROS performed and neg except as noted above. [facility] Medical History Chronic pain Kidney stones On home oxygen therapy Migraines S/p small bowel obstruction Incarcerated incisional hernia Wears hearing aid in both ears Hypothyroidism Dialysis patient Kidney disease Former smoker Congestive heart failure (CHF) TIA (transient ischemic attack) Problem with dialysis access Hemorrhoids Acid reflux Constipation Anxiety Depression Hypertension Heart disease Diabetes Thyroid disease Home Medications ?Medication ?Instructions ?Recorded ?Last Taken ?Type aspirin 81 mg tablet,delayed 81 mg PO DAILY heart heal th 08/14/18 01/27/25 History release (Adult Low Dose Aspirin) atorvastatin 40 mg tablet 40 mg PO QHS CHOLESTEROL 07/2201/27/25 History vitamin B complex-vitamin C-folic 1 tab PO DAILY SUPPL EMENT 01/11/21 01/27/25 History acid 0.8 mg tablet (Bethanie-Petey) levothyroxine 125 mcg tablet 125 mcg PO DAILY THYROID 05/31/23 01/27/25 History lisinopril 40 mg tablet 40 mg PO DAILY BLOOD PRESSUR E 05/31/23 01/27/25 History sucroferric oxyhydroxide 500 mg 500 mg PO DAILY PHOSPH ATE BINDER 05/31/23 01/27/25 History chewable tablet (Velphoro) amlodipine 10 mg tablet 10 mg PO DAILY blood pressur e 01/28/25 01/27/25 History clonidine HCl 0.2 mg tablet 0.2 mg PO BID blood pressu re 01/28/25 01/27/25 History insulin glargine 100 unit/mL (3 48 unit subcut QHS lety betes 01/28/25 01/27/25 History mL) subcutaneous pen (Lantus Solostar U-100 Insulin) insulin lispro 100 unit/mL 8 unit subcut .COMPLEX diab etes 01/28/25 01/27/25 History subcutaneous pen metoprolol tartrate 25 mg tablet 25 mg PO Q12H blood p ressure 01/28/25 01/27/25 History sumatriptan succinate 50 mg tablet 50 mg PO BID PRN mi graine 01/28/25 Unknown History furosemide 40 mg tablet (Lasix) 40 mg PO DAILY diureti c #90 tabs 01/30/25 Unknown Rx ondansetron 4 mg disintegrating 4 mg PO Q8H PRN PRN Na usea #10 tabs 05/17/25 Unknown Rx tablet OXYGEN - Supplemental ([facility] PRN Low SPO2 06/01/2506/01 History INFORMATIONAL USE ONLY) clonidine HCl 0.1 mg tablet 0.1 mg PO QHS 06/01/25 Unk nown History Allergy/AdvReac Type Severity Reaction Status Date / Time Penicillins Allergy Severe Anaphylaxis Verified 05/31/25 19:30 chlorhexidine Allergy Mild rash Verified 05/31/25 19:30 codeine Allergy Unknown Unknown Verified 05/31/25 19:30 latex Allergy Unknown Unknown Verified 05/31/25 19:30 ceftriaxone (From [facility]) AdvReac Rash Verified 06/03/25 14:14 Family History Brother Kidney disease Mother Cancer lung cancer Father Colon cancer Surgical History (Updated 06/01/25 @ 04:15 by Larissa Griffin) History of appendectomy S/P laparotomy with lysis of adhesions Hx of arteriovenostomy for renal dialysis Hx of bilateral breast reduction surgery History of partial hysterectomy History of bowel resection Hx of appendectomy Hx of cholecystectomy Social History Smoking Status: Former smoker alcohol intake: never substance use type: does not use caffeine: Yes what type of physical activity do you participate in: none frequency: does not exercise Physical Exam Const alert, oriented x3 and no apparent distress General Appearance: cooperative HEENT normocephalic and head/scalp atraumatic Eyes PERRL and EOMs intact bilaterally Neck supple and No nodes Resp normal air movement and clear to auscultation bilaterally Cardio regular rate and regular rhythm GI soft to palpation, non-tender and non-distended Extremity General Extremity: Negative for edema Skin Skin Narrative: fading rash on arms/trunk Lab / Micro Data Attestation: I reviewed the patient's lab results. 06/04/25 04:54 06/04/25 04:54 Labs: Laboratory Results - last 24 hr 06/03/25 17:27: POC Glucose 142 H 06/03/25 22:27: POC Glucose 189 H 06/04/25 04:54: WBC 4.7, RBC 3.21 L, Hgb 9.6 L, Hct 29.5 L, MCV 91.9, MCH 29.9, MCHC 32.5, RDW Std Deviation 45.8 H, RDW Coeff of Alvina 13.4, Plt Count 194, MPV 9.3, Immature Gran % (Auto) 0.400, Neut % (Auto) 67.9, Lymph % (Auto) 18.9 L, [place] % (Auto) 9.8, Eos % (Auto) 1.9, Baso % (Auto) 1.1 H, Absolute Neuts (auto) 3.2, Absolute Lymphs (auto) 0.89, Nucleated RBC % 0, Sodium 136, Potassium 4.3, Chloride 99, Carbon Dioxide 22.6, Anion Gap 14, BUN 38 H, Creatinine 6.07 H, E stim Creat Clear Calc 7.70 L*, Est GFR (MDRD) Non-Af 7 L, BUN/Creatinine Ratio 6.2 L, Glucose 169 H, Calcium 8.8 06/04/25 06:17: POC Glucose 172 H 06/04/25 11:25: POC Glucose 101 Micro: Microbiology 05/31/25 20:45 Blood Culture (Wb) - Anticubital Left Blood Culture - Preliminary No growth in 48 hours. 05/31/25 20:30 Blood Culture (Wb) - Arm Left Blood Culture - Preliminary No growth in 48 hours.
[2025-06-04] MEDS: Insulin Glargine-YFGN 100 UNIT/ML Pen 30 UNIT SC (20:47)
[2025-06-05 04:00] VITALS: BP 132/53; PULSE 63; RESP 16; TEMP 37.1; O2SAT 98
--- NOTE | 2025-06-05 04:45 | NURSING ---
pt called for assistance to br. upon entering room, pt advised drywall applicator that she felt her blood sugar was low. initial bgt showed 31. interventions followed per protocol.
--- NOTE | 2025-06-05 04:45 | NURSING ---
pt requested assistance to BR. upon entering the room, she advised the insurance underwriter she felt her blood sugar was low. initial bgt was 31. interventions followed per protocol, will retest.
[2025-06-05 05:05] LABS: Hematocrit 30.3 % (37-47); Hemoglobin 10.2 g/dL (12.0-15.0); Immature Granulocytes Count 0.030 X10^3/uL (0.0-0.0); Mean Corp Hgb Conc 33.7 g/dL (32-36); Mean Corpuscular Volume 89.4 fL (81-99); Mean Platelet Vol. 9.3 fl (6.2-12.0); NRBC Flagged by Analyzer 0 % (0-5); Platelet Count 222 K/mm3 (150-450); RBC Distribution Width CV 13.8 % (11.6-14.6); RBC Distribution Width SD 45.1 fl (35.1-43.9); Red Blood Count 3.39 M/mm3 (4.2-5.4); White Blood Count 8.0 K/mm3 (4.4-11.0)
[2025-06-05] MEDS: metroNIDAZOLE 500 MG/100 ML BAG 100 MG IV ×3 (05:08→22:19)
[2025-06-05] MEDS: DiphenhydrAMINE 50 MG/ML Syringe 25 MG IV ×4 (05:24→22:17)
[2025-06-05] MEDS: 0.9% Saline Lock 10 ML Syringe IV ×4 (05:24→22:16)
[2025-06-05 05:36] LABS: Anion Gap 15 (5-15); BUN 25 mg/dL (4-19); BUN/Creat Ratio 5.5 RATIO (10-20); Calcium,Total 9.3 mg/dL (7.6-11.0); Carbon Dioxide 22.2 mmol/L (21.0-32.0); Chloride 101 mmol/L (98-108); Estimated Creatinine Clearance 10.18 ml/min (50-250); Glucose 52 mg/dL (70-99); Magnesium 2.5 mg/dL (1.5-2.2); Potassium 3.5 mmol/L (3.3-5.1)
[2025-06-05 08:04] VITALS: O2SAT 97
[2025-06-05 08:53] VITALS: BP 158/54; PULSE 103; RESP 16; TEMP 36.5; O2SAT 98
[2025-06-05] MEDS: Smz/Tmp Ds Tablet 0.5 TABLET PO (08:56)
[2025-06-05] MEDS: Heparin Injection (Vial) 5,000 UNIT/ML VIAL 5000 UNIT SC ×2 (08:56→22:23)
[2025-06-05] MEDS: Aspirin E.C. 81 MG Tablet PO (08:56)
[2025-06-05] MEDS: Folic Acid/Vitamin B Comp W-C 1 Capsule 1 CAP PO (08:57)
[2025-06-05] MEDS: Lactobacillis Acidophilus 1 CAP PO ×4 (08:57→22:28)
--- NOTE | 2025-06-05 10:44 | PCM.PN.ID ---
Physical Exam Narrative Feeling ok, no diarrhea, no fever, still some rash Const alert and no apparent distress General Appearance: cooperative Resp normal air movement and clear to auscultation bilaterally Cardio regular rate and regular rhythm GI soft to palpation, non-tender and non-distended Skin Skin Narrative: rash on arms, trunk ID ID: Route of nutrition/ use of supplements: [] Nutritional Intake: [] IV Site: [] Jones Catheter: [] Assessment & Plan Assessment/Plan (1) Diarrhea: QUALIFIERS: Diarrhea type: presumed infectious Qualified Code(s): R19.7 - Diarrhea, unspecified (2) Urinary tract infection: (3) Sepsis: QUALIFIERS: Sepsis type: sepsis due to unspecified organism Sepsis acute organ dysfunction status: without acute organ dysfunction Qualified Code(s): A41.9 - Sepsis, unspecified organism PLAN: Colitis and possible cystitis seen on CT. Ucx with ecoli. Feeling better, stool panel neg. No recent abx and no h/o cdiff. Cont bactrim and flagyl. Had rash with ceftriaxone here. Plan on 1 week course of abx. Will follow, d/w Dr. Ricketts (4) Nausea and vomiting: QUALIFIERS: Vomiting type: bilious vomiting Qualified Code(s): R11.14 - Bilious vomiting (5) ESRD (end stage renal disease) on dialysis:
--- NOTE | 2025-06-05 10:51 | PCM.PN.REN ---
Subjective Subjective Sitting in chair at bedside. Denies any complaints. States tolerated hemodialysis yesterday, denies any cramping. Objective Data Objective Data Vital Signs: Vital Signs Temp Pulse Resp BP Pulse Ox O2 Del Method O2 Flow Rate 97.7 F L 103 H 16 158/54 H 98 Room Air 2 06/05/25 08:53 06/05/25 08:53 06/05/25 08:53 06/05/25 08:53 06/05/25 08:53 06/05/25 09:46 06/03/25 08:45 Oxygen Flow Rate (L/min) 2 Oxygen Delivery Method Room Air Weight: 51.1 kg Body Mass Index (BMI) 20.7 Intake & Output: Intake and Output for Last 24 Hours 06/03/25 06/04/25 06/05/25 23:59 23:59 23:59 Intake Total 860 / 860 850 / 1150 400 / 400 Output Total 350 / 350 3070 / 3070 Balance 510 / 510 -2220 / -1920 400 / 400 Lab / Micro Data 06/05/25 04:39 06/05/25 04:39 Labs: Laboratory Results - last 24 hr 06/04/25 11:25: POC Glucose 101 06/04/25 16:21: POC Glucose 132 H 06/04/25 20:45: POC Glucose 214 H 06/05/25 04:27: POC Glucose 31 L* 06/05/25 04:39: WBC 8.0, RBC 3.39 L, Hgb 10.2 L, Hct 30.3 L, MCV 89.4, MCH 30.1, MCHC 33.7, RDW Std Deviation 45.1 H, RDW Coeff of Alvina 13.8, Plt Count 222, MPV 9.3, Immature Gran % (Auto) 0.400, Neut % (Auto) 42.2 L, Lymph % (Auto) 46.0 H, [place] % (Auto) 8.7, Eos % (Auto) 2.1, Baso % (Auto) 0.6, Absolute Neuts (auto) 3.4, Absolute Lymphs (auto) 3.66, Nucleated RBC % 0, Sodium 139, Potassium 3.5, Chloride 101, Carbon Dioxide 22.2, Anion Gap 15, BUN 25 H, Creatinine 4.59 H, Estim Creat Clear Calc 10.18 L, Est GFR (MDRD) Non-Af 10 L, BUN/Creatinine Ratio 5.5 L, Glucose 52 L, Calcium 9.3, Phosphorus 2.5 L, Magnesium 2.5 H 06/05/25 05:02: POC Glucose 105 06/05/25 08:47: POC Glucose 48 L 06/05/25 09:44: POC Glucose 128 H Micro: Microbiology 06/04/25 12:40 Stool Enteric Bacteriology - Final 05/31/25 20:45 Blood Culture (Wb) - Anticubital Left Blood Culture - Preliminary No growth in 48 hours. 05/31/25 20:30 Blood Culture (Wb) - Arm Left Blood Culture - Preliminary No growth in 48 hours. 05/31/25 23:29 Urine, Clean Catch Urine Culture - Final Escherichia coli Physical Exam Narrative awake, responsive, no acute distress s1s2 regular Lungs sound clear anteriorly and posteriorly. On room air abdomen soft No lower extremity edema Right arm AV fistula positive thrill and bruit Assessment & Plan Assessment/Plan (1) ESRD (end stage renal disease) on dialysis: (2) Colitis: (3) Sepsis: QUALIFIERS: Sepsis acute organ dysfunction status: without acute organ dysfunction Sepsis type: sepsis due to unspecified organism Qualified Code(s): A41.9 - Sepsis, unspecified organism PLAN: Plan This is a 60-year-old female with past medical history significant for end-stage renal disease on hemodialysis Monday schedule at [facility] who presented to the emergency room with abdominal pain. Admitted for sepsis/colitis. Nephrology consulted as patient has history of ESRD and for dialysis management. - ESRD on HD MWF at [facility]. Last dialysis was yesterday. 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 Orders placed. - Anemia of chronic disease, hemoglobin 10.2. No need for LEANA with dialysis. Monitor hemoglobin trends - Colitis and possible cystitis; on IV antibiotics per ID. Assessment and plan reviewed Dr. Vasques
--- NOTE | 2025-06-05 11:30 | PN.HOSP_ITS ---
Reason for Visit Chief Complaint: Nausea, Vomiting and Diarrhea. Subjective Subjective Patient seen has been experiencing hypoglycemic episode. Case was discussed with ID regarding her antibiotic treatment plan is to treat with Bactrim and Flagyl Objective Data Objective Data Vital Signs: Vital Signs Temp Pulse Resp BP Pulse Ox O2 Del Method O2 Flow Rate 97.7 F L 103 H 16 158/54 H 98 Room Air 2 06/05/25 08:53 06/05/25 08:53 06/05/25 08:53 06/05/25 08:53 06/05/25 08:53 06/05/25 09:46 06/03/25 08:45 Oxygen Flow Rate (L/min) 2 Oxygen Delivery Method Room Air Weight: 51.1 kg Body Mass Index (BMI) 20.7 Intake & Output: Intake and Output for Last 24 Hours 06/03/25 06/04/25 06/05/25 23:59 23:59 23:59 Intake Total 860 / 860 850 / 1150 400 / 400 Output Total 350 / 350 3070 / 3070 Balance 510 / 510 -2220 / -1920 400 / 400 Lab / Micro Data 06/05/25 04:39 06/05/25 04:39 Labs: Laboratory Results - last 24 hr 06/04/25 11:25: POC Glucose 101 06/04/25 16:21: POC Glucose 132 H 06/04/25 20:45: POC Glucose 214 H 06/05/25 04:27: POC Glucose 31 L* 06/05/25 04:39: WBC 8.0, RBC 3.39 L, Hgb 10.2 L, Hct 30.3 L, MCV 89.4, MCH 30.1, MCHC 33.7, RDW Std Deviation 45.1 H, RDW Coeff of Alvina 13.8, Plt Count 222, MPV 9.3, Immature Gran % (Auto) 0.400, Neut % (Auto) 42.2 L, Lymph % (Auto) 46.0 H, [place] % (Auto) 8.7, Eos % (Auto) 2.1, Baso % (Auto) 0.6, Absolute Neuts (auto) 3.4, Absolute Lymphs (auto) 3.66, Nucleated RBC % 0, Sodium 139, Potassium 3.5, Chloride 101, Carbon Dioxide 22.2, Anion Gap 15, BUN 25 H, Creatinine 4.59 H, E stim Creat Clear Calc 10.18 L, Est GFR (MDRD) Non-Af 10 L, BUN/Creatinine Ratio 5.5 L, Glucose 52 L, Calcium 9.3, Phosphorus 2.5 L, Magnesium 2.5 H 06/05/25 05:02: POC Glucose 105 06/05/25 08:47: POC Glucose 48 L 06/05/25 09:44: POC Glucose 128 H Micro: Microbiology 06/04/25 12:40 Stool Enteric Bacteriology - Final 05/31/25 20:45 Blood Culture (Wb) - Anticubital Left Blood Culture - Preliminary No growth in 48 hours. 05/31/25 20:30 Blood Culture (Wb) - Arm Left Blood Culture - Preliminary No growth in 48 hours. 05/31/25 23:29 Urine, Clean Catch Urine Culture - Final Escherichia coli Physical Exam Narrative GENERAL: Ill looking HEENT: Atraumatic; normocephalic EYES; Anicteric, Normal Conjunctiva NECK; supple, normal thyroid, RESPIRATORY: Diminished to auscultation CARDIOVASCULAR: Regular S1 S2, GI: soft, normoactive bowel sounds, : No Renal angle tenderness; EXTREMITIES: AV fistula right arm MUSCULOSKELETAL: no muscle wasting NEURO: Awake; no lateralizing signs. SKIN: No Rash PSYCH; Flat affect Assessment & Plan Assessment/Plan (1) Acute cystitis without hematuria: (2) Colitis: PLAN: Plan Patient is a 60-year-old lady with history of end-stage renal disease on hemodialysis presented with nausea vomiting and diarrhea. An assessment of acute colitis as well as cystitis made admitted to a monitored bed for further management 1. Acute complicated cystitis with UTI ? Patient was started on Levaquin initially however the E. coli was resistant to flow quinolones subsequently discontinued patient started on ceftriaxone. Patient however did develop rash on the neck and extremities. Ceftriaxone held consult placed to ID ? 06/05/2025;Case was discussed with ID regarding her antibiotic treatment plan is to treat with Bactrim and Flagyl 2. Acute colitis ? Treated with ceftriaxone as well as Flagyl stool studies sent 3. Chronic congestive heart failure with preserved ejection fraction ? 2D echo from patient admission in January demonstrated estimated ejection fraction of 55-60 %. Overall normal LV systolic function No significant valvular abnormality noted. Patient was on admission last month for CHF exacerbation currently remains stable 4. End-stage renal disease on hemodialysis ? Dialysis days Wednesdays and Fridays. Consult placed to nephrology for dialysis orders. Ordered daily BMP for subsequent eval 5. Diabetes mellitus type II Patient is on long-acting insulin as well as scheduled short acting insulin did continue with home regimen. In addition patient was placed on Accu-Cheks a.c. and at bedtime and covered with sliding scale insulin ? 06/05/2025; made adjustment to patient insulin regimen given her episodes of hypoglycemia 6. Hypertension ? Blood pressure control not optimal, resume home medication added hydralazine as needed for systolic blood pressure greater than 160 7. Hypothyroidism ? Patient is on levothyroxine home dose continued 8. Depression with anxiety ? Per history patient currently not on any treatment 9 Dyslipidemia ?Patient is on statin therapy, continued at home dose 10. Anemia ? Secondary to chronic disorder monitoring H&H and transfuse if patient becomes symptomatic or hemoglobin falls below 7 11. DVT prophylaxis ? Subcu heparin Time spent in the patient's overall evaluation,decision-making process, review of diagnostic data, adjustment of management, discussion with other providers, nursing nursing and ancillary staff involved in patient's care documentation, 45 Minutes Charges/Coding Visit Charges Inpatient E&M: 09498 Subs Hosp L2
[2025-06-05 14:08] VITALS: BP 109/46; PULSE 76; RESP 16; TEMP 36.7; O2SAT 98
[2025-06-05 21:47] VITALS: BP 130/52; PULSE 84; RESP 18; TEMP 36.6; O2SAT 97
[2025-06-06] VITALS (9 sets, daily range): BP systolic 136–153; BP diastolic 52–56; PULSE 77–94; RESP 14–18; TEMP 36.4–36.7; O2SAT 95–100; BMI 20.7; BMI 20.2
[2025-06-06 04:58] LABS: Hematocrit 25.6 % (37-47); Hemoglobin 8.4 g/dL (12.0-15.0); Immature Granulocytes Count 0.010 X10^3/uL (0.0-0.0); Mean Corp Hgb Conc 32.8 g/dL (32-36); Mean Corpuscular Volume 90.8 fL (81-99); Mean Platelet Vol. 9.2 fl (6.2-12.0); NRBC Flagged by Analyzer 0 % (0-5); Platelet Count 163 K/mm3 (150-450); RBC Distribution Width CV 14.2 % (11.6-14.6); RBC Distribution Width SD 47.5 fl (35.1-43.9); Red Blood Count 2.82 M/mm3 (4.2-5.4); White Blood Count 4.8 K/mm3 (4.4-11.0)
[2025-06-06 05:25] LABS: Anion Gap 12 (5-15); BUN 39 mg/dL (4-19); BUN/Creat Ratio 6.9 RATIO (10-20); Calcium,Total 8.6 mg/dL (7.6-11.0); Carbon Dioxide 22.1 mmol/L (21.0-32.0); Chloride 101 mmol/L (98-108); Estimated Creatinine Clearance 8.27 ml/min (50-250); Glucose 125 mg/dL (70-99); Potassium 4.2 mmol/L (3.3-5.1)
--- NOTE | 2025-06-06 07:22 | PCM.PN.HOSP ---
Reason for Visit Chief Complaint: Nausea, Vomiting and Diarrhea. Subjective Subjective Patient seen had hypoglycemic episode the day prior adjusted patient insulin regimen. Blood glucose still remain low did discuss with patient about changing her regimen on discharge Objective Data Objective Data Vital Signs: Vital Signs Temp Pulse Resp BP Pulse Ox O2 Del Method O2 Flow Rate 98.1 F 94 18 142/54 H 95 Room Air 2 06/06/25 02:34 06/06/25 02:34 06/06/25 02:34 06/06/25 02:34 06/06/25 02:34 06/06/25 02:34 06/03/25 08:45 Oxygen Flow Rate (L/min) 2 Oxygen Delivery Method Room Air Weight: 51 kg Body Mass Index (BMI) 20.7 Intake & Output: Intake and Output for Last 24 Hours 06/04/25 06/05/25 06/06/25 23:59 23:59 23:59 Intake Total 850 / 1150 1520 / 1520 118 / 118 Output Total 3070 / 3070 Balance -2220 / -1920 1520 / 1520 118 / 118 Lab / Micro Data 06/06/25 04:23 06/06/25 04:23 Labs: Laboratory Results - last 24 hr 06/05/25 08:47: POC Glucose 48 L 06/05/25 09:44: POC Glucose 128 H 06/05/25 11:44: POC Glucose 162 H 06/05/25 16:55: POC Glucose 73 L 06/05/25 22:26: POC Glucose 170 H 06/06/25 04:23: WBC 4.8, RBC 2.82 L, Hgb 8.4 L, Hct 25.6 L, MCV 90.8, MCH 29.8, MCHC 32.8, RDW Std Deviation 47.5 H, RDW Coeff of Alvina 14.2, Plt Count 163, MPV 9.2, Immature Gran % (Auto) 0.200, Neut % (Auto) 63.4, Lymph % (Auto) 23.7, Wilkinson % (Auto) 9.2, Eos % (Auto) 2.7, Baso % (Auto) 0.8, Absolute Neuts (auto) 3.0, Absolute Lymphs (auto) 1.13, Nucleated RBC % 0, Sodium 135, Potassium 4.2, Chloride 101, Carbon Dioxide 22.1, Anion Gap 12, BUN 39 H, Creatinine 5.65 H, Estim Creat Clear Calc 8.27 L*, Est GFR (MDRD) Non-Af 8 L, BUN/Creatinine Ratio 6.9 L, Glucose 125 H, Calcium 8.6 06/06/25 06:37: POC Glucose 102 Micro: Microbiology 05/31/25 20:45 Blood Culture (Wb) - Anticubital Left Blood Culture - Final No growth in 5 days. 05/31/25 20:30 Blood Culture (Wb) - Arm Left Blood Culture - Final No growth in 5 days. 06/04/25 12:40 Stool Enteric Bacteriology - Final 05/31/25 23:29 Urine, Clean Catch Urine Culture - Final Escherichia coli Physical Exam Narrative GENERAL: Ill looking HEENT: Atraumatic; normocephalic EYES; Anicteric, Normal Conjunctiva NECK; supple, normal thyroid, RESPIRATORY: Diminished to auscultation CARDIOVASCULAR: Regular S1 S2, GI: soft, normoactive bowel sounds, : No Renal angle tenderness; EXTREMITIES: AV fistula right arm MUSCULOSKELETAL: no muscle wasting NEURO: Awake; no lateralizing signs. SKIN: No Rash PSYCH; Flat affect Const alert, oriented x3, no apparent distress and average body habitus Constitutional Narrative: Patient appears older than her stated age with nontoxic appearance. General Appearance: cooperative HEENT normocephalic, head/scalp atraumatic, hearing grossly normal bilaterally and moist oral mucous membranes Eyes PERRL, EOMs intact bilaterally and conjunctivae normal Neck no lymphadenopathy and supple Resp normal respiratory effort, no retractions, no use of accessory muscles and clear to auscultation bilaterally Cardio regular rate and regular rhythm GI GI Narrative: Mild tenderness to palpation of the Left lower quadrant of the abdomen otherwise soft, nondistended and with no guarding or rebound. Extremity normal to inspection, full ROM and no clubbing, cyanosis or edema Skin Skin Narrative: Patient has no evidence of rash, abscess, wounds or jaundice. Neuro oriented x3, CN's II-XII intact bilaterally, moves all extremities and no focal motor deficits Sensorium / Orientation: awake, alert, oriented to person, oriented to place and oriented to time Speech: speech normal Psych affect normal Assessment & Plan Assessment/Plan (1) Acute cystitis without hematuria: (2) Colitis: PLAN: Plan Patient is a 60-year-old lady with history of end-stage renal disease on hemodialysis presented with nausea vomiting and diarrhea. An assessment of acute colitis as well as cystitis made admitted to a monitored bed for further management 1. Acute complicated cystitis with UTI ? Patient was started on Levaquin initially however the E. coli was resistant to flow quinolones subsequently discontinued patient started on ceftriaxone. Patient however did develop rash on the neck and extremities. Ceftriaxone held consult placed to ID ? 06/05/2025;Case was discussed with ID regarding her antibiotic treatment plan is to treat with Bactrim and Flagyl 2. Acute colitis ? Treated with ceftriaxone as well as Flagyl stool studies sent 3. Chronic congestive heart failure with preserved ejection fraction ? 2D echo from patient admission in January demonstrated estimated ejection fraction of 55-60 %. Overall normal LV systolic function No significant valvular abnormality noted. Patient was on admission last month for CHF exacerbation currently remains stable 4. End-stage renal disease on hemodialysis ? Dialysis days Wednesdays and Fridays. Consult placed to nephrology for dialysis orders. Ordered daily BMP for subsequent eval 5. Diabetes mellitus type II Patient is on long-acting insulin as well as scheduled short acting insulin did continue with home regimen. In addition patient was placed on Accu-Cheks a.c. and at bedtime and covered with sliding scale insulin ? 06/05/2025; made adjustment to patient insulin regimen given her episodes of hypoglycemia ? 06/06/2025;Patient seen had hypoglycemic episode the day prior adjusted patient insulin regimen. Blood glucose still remain low did discuss with patient about changing her regimen on discharge 6. Hypertension ? Blood pressure control not optimal, resume home medication added hydralazine as needed for systolic blood pressure greater than 160 7. Hypothyroidism ? Patient is on levothyroxine home dose continued 8. Depression with anxiety ? Per history patient currently not on any treatment 9 Dyslipidemia ?Patient is on statin therapy, continued at home dose 10. Anemia ? Secondary to chronic disorder monitoring H&H and transfuse if patient becomes symptomatic or hemoglobin falls below 7 11. DVT prophylaxis ? Subcu heparin Time spent in the patient's overall evaluation,decision-making process, review of diagnostic data, adjustment of management, discussion with other providers, nursing nursing and ancillary staff involved in patient's care documentation, 38 Minutes Charges/Coding Visit Charges Inpatient E&M: 32379 Subs Hosp L2
[2025-06-06] MEDS: PureFlow B 2K Dialysis Soln 1 BAG 6 BAG PF (08:15)
--- NOTE | 2025-06-06 09:32 | PCM.DC.SUM ---
Providers Date of Admission: 06/01/25 Date of Discharge: 06/06/25 Primary Care Physician: Dr. Maldonado Denny MD Consultations 06/01/25 03:51 Consult: Nephrology Routine Consulting Provider: [place] Reason for Consult: ESRD on HD (M-W-F) with recent IV contrast dye administration. EMERGENT Consult: No Notified: Yes Date Notified: 06/01/25 Time Notified: 07:31 Method of Notification: Answering Service 06/04/25 09:30 Consult: Infectious Disease Routine Consulting Provider: Ruben Wilder Reason for Consult: Multidrug-resistant UTI EMERGENT Consult: No Notified: Yes Date Notified: 06/04/25 Time Notified: 09:30 Method of Notification: Text Reason For Visit: UTI, WITH POSSIBLE SEPSIS WITH ABDOMINAL PAIN Diagnosis Discharge Diagnosis (1) Acute cystitis without hematuria: Status: Acute Code(s): N30.00 - Acute cystitis without hematuria (2) Colitis: Status: Acute Code(s): K52.9 - Noninfective gastroenteritis and colitis, unspecified Plan Patient is a 60-year-old lady with history of end-stage renal disease on hemodialysis presented with nausea vomiting and diarrhea. An assessment of acute colitis as well as cystitis made admitted to a monitored bed for further management 1. Acute complicated cystitis with UTI ? Patient was started on Levaquin initially however the E. coli was resistant to flow quinolones subsequently discontinued patient started on ceftriaxone. Patient however did develop rash on the neck and extremities. Ceftriaxone held consult placed to ID ? 06/05/2025;Case was discussed with ID regarding her antibiotic treatment plan is to treat with Bactrim and Flagyl 2. Acute colitis ? Treated with ceftriaxone as well as Flagyl stool studies sent 3. Chronic congestive heart failure with preserved ejection fraction ? 2D echo from patient admission in January demonstrated estimated ejection fraction of 55-60 %. Overall normal LV systolic function No significant valvular abnormality noted. Patient was on admission last month for CHF exacerbation currently remains stable 4. End-stage renal disease on hemodialysis ? Dialysis days Wednesdays and Fridays. Consult placed to nephrology for dialysis orders. Ordered daily BMP for subsequent eval 5. Diabetes mellitus type II Patient is on long-acting insulin as well as scheduled short acting insulin did continue with home regimen. In addition patient was placed on Accu-Cheks a.c. and at bedtime and covered with sliding scale insulin ? 06/05/2025; made adjustment to patient insulin regimen given her episodes of hypoglycemia ? 06/06/2025;Patient seen had hypoglycemic episode the day prior adjusted patient insulin regimen. Blood glucose still remain low did discuss with patient about changing her regimen on discharge 6. Hypertension ? Blood pressure control not optimal, resume home medication added hydralazine as needed for systolic blood pressure greater than 160 7. Hypothyroidism ? Patient is on levothyroxine home dose continued 8. Depression with anxiety ? Per history patient currently not on any treatment 9 Dyslipidemia ?Patient is on statin therapy, continued at home dose 10. Anemia ? Secondary to chronic disorder monitoring H&H and transfuse if patient becomes symptomatic or hemoglobin falls below 7 11. DVT prophylaxis ? Subcu heparin Time spent in the patient's overall evaluation,decision-making process, review of diagnostic data, adjustment of management, discussion with other providers, nursing nursing and ancillary staff involved in patient's care documentation, 38 Minutes Medications at Discharge Home Medications aspirin 81 mg tablet,delayed release (Adult Low Dose Aspirin) 81 mg PO DAILY heart health 08/14/18 atorvastatin 40 mg tablet 40 mg PO QHS CHOLESTEROL 08/14/18 vitamin B complex-vitamin C-folic acid 0.8 mg tablet (Bethanie-Petey) 1 tab PO DAILY SUPPLEMENT 01/11/21 levothyroxine 125 mcg tablet 125 mcg PO DAILY THYROID 05/31/23 sucroferric oxyhydroxide 500 mg chewable tablet (Velphoro) 500 mg PO DAILY PHOSPHATE BINDER 05/31/23 amlodipine 10 mg tablet 10 mg PO DAILY blood pressure 01/28/25 clonidine HCl 0.2 mg tablet 0.2 mg PO BID blood pressure 01/28/25 insulin lispro 100 unit/mL subcutaneous pen 8 unit subcut .COMPLEX diabetes 01/28/25 metoprolol tartrate 25 mg tablet 25 mg PO Q12H blood pressure 01/28/25 sumatriptan succinate 50 mg tablet 50 mg PO BID PRN migraine 01/28/25 furosemide 40 mg tablet (Lasix) 40 mg PO DAILY diuretic #90 tabs 01/30/25 ondansetron 4 mg disintegrating tablet 4 mg PO Q8H PRN PRN Nausea #10 tabs 05/17/25 OXYGEN - Supplemental ([facility] INFORMATIONAL USE ONLY) PRN Low SPO2 06/01/25 clonidine HCl 0.1 mg tablet 0.1 mg PO QHS 06/01/25 L.acidophil,salivari-Bifido bifidum-Strep thermoph 175 mg capsule 1 cap PO 2XD 30 days #60 caps 06/06/25 insulin glargine 100 unit/mL (3 mL) subcutaneous pen (Lantus Solostar U-100 Insulin) 10 unit (0.1 mL) subcut DAILY diabetes #3 mL 06/06/25 metronidazole 500 mg tablet 500 mg PO TID 7 days #21 tabs 06/06/25 sulfamethoxazole 800 mg-trimethoprim 160 mg tablet 0.5 tab PO DAILY #14 tabs 06/06/25 Physical Exam Narrative GENERAL: Ill looking HEENT: Atraumatic; normocephalic EYES; Anicteric, Normal Conjunctiva NECK; supple, normal thyroid, RESPIRATORY: Diminished to auscultation CARDIOVASCULAR: Regular S1 S2, GI: soft, normoactive bowel sounds, : No Renal angle tenderness; EXTREMITIES: AV fistula right arm MUSCULOSKELETAL: no muscle wasting NEURO: Awake; no lateralizing signs. SKIN: No Rash PSYCH; Flat affect Weight / BMI Weight Weight: 51 kg Body Mass Index (BMI) 20.7 ABG / Lab / Microbiology Data 06/06/25 04:23 06/06/25 04:23 Laboratory: Laboratory Results - last 24 hr 06/05/25 08:47: POC Glucose 48 L 06/05/25 09:44: POC Glucose 128 H 06/05/25 11:44: POC Glucose 162 H 06/05/25 16:55: POC Glucose 73 L 06/05/25 22:26: POC Glucose 170 H 06/06/25 04:23: WBC 4.8, RBC 2.82 L, Hgb 8.4 L, Hct 25.6 L, MCV 90.8, MCH 29.8, MCHC 32.8, RDW Std Deviation 47.5 H, RDW Coeff of Alvina 14.2, Plt Count 163, MPV 9.2, Immature Gran % (Auto) 0.200, Neut % (Auto) 63.4, Lymph % (Auto) 23.7, Dillon % (Auto) 9.2, Eos % (Auto) 2.7, Baso % (Auto) 0.8, Absolute Neuts (auto) 3.0, Absolute Lymphs (auto) 1.13, Nucleated RBC % 0, Sodium 135, Potassium 4.2, Chloride 101, Carbon Dioxide 22.1, Anion Gap 12, BUN 39 H, Creatinine 5.65 H, Estim Creat Clear Calc 8.27 L*, Est GFR (MDRD) Non-Af 8 L, BUN/Creatinine Ratio 6.9 L, Glucose 125 H, Calcium 8.6 06/06/25 06:37: POC Glucose 102 Microbiology: Microbiology 05/31/25 20:45 Blood Culture (Wb) - Anticubital Left Blood Culture - Final No growth in 5 days. 05/31/25 20:30 Blood Culture (Wb) - Arm Left Blood Culture - Final No growth in 5 days. 06/04/25 12:40 Stool Enteric Bacteriology - Final 05/31/25 23:29 Urine, Clean Catch Urine Culture - Final Escherichia coli D/C Instructions DC O2, CPAP, BIPAP Needs Home O2 Discharge instructions: No Meaningful Use Info Meaningful Use Meaningful Use Diagnoses (Choose all that apply): None applicable Discharge Plan Admission Admit Date/Time: 06/01/25 02:48 Attending Provider: Allan Ricketts Primary Care Provider: Maldonado Denny Consulting Providers: [place]; Allan Hirsch; Romero Walsh; Ruben Wilder Discharge Orders/Prescriptions Prescriptions: New sulfamethoxazole-trimethoprim 800-160 mg Tablet 0.5 tab PO DAILY Qty: 14 0RF L.acidoph,saliva-B.bif-S.therm 175 mg Capsule 1 cap PO 2XD 30 Days Qty: 60 0RF metronidazole 500 mg tablet 500 mg PO TID 7 Days Qty: 21 0RF Continued aspirin [Adult Low Dose Aspirin] 81 mg tablet,delayed release (DR/EC) 81 mg PO DAILY atorvastatin 40 mg tablet 40 mg PO QHS Bethanie-Petey 0.8 mg Tablet 1 tab PO DAILY Velphoro 500 mg tablet,chewable 500 mg PO DAILY Patient Comments: Takes with dinner levothyroxine 125 mcg tablet 125 mcg PO DAILY sumatriptan succinate 50 mg tablet 50 mg PO BID PRN (Reason: migraine) clonidine HCl 0.2 mg tablet 0.2 mg PO BID amlodipine 10 mg tablet 10 mg PO DAILY insulin lispro 100 unit/mL insulin pen 8 unit SUBCUT .COMPLEX Rx Instructions: INJECT 8 UNITS SUBCUTANEOUSLY THREE TIMES DAILY BEFORE MEALS, Add 1 UNIT for each 50 mg/dl above 150. metoprolol tartrate 25 mg tablet 25 mg PO Q12H furosemide [Lasix] 40 mg tablet 40 mg PO DAILY Qty: 90 0RF ondansetron 4 mg tablet,disintegrating 4 mg PO Q8H PRN PRN (Reason: Nausea) Qty: 10 0RF clonidine HCl 0.1 mg tablet 0.1 mg PO QHS OXYGEN - Supplemental ([facility] INFORMATIONAL USE ONLY) PRN (Reason: Low SPO2) Patient Comments: DME company is [employer] Changed insulin glargine [Lantus Solostar U-100 Insulin] 100 unit/mL (3 mL) insulin pen 10 unit subcut DAILY Qty: 3 0RF Discontinued lisinopril 40 mg tablet 40 mg PO DAILY Referrals / Follow Up: Maldonado Denny MD [Primary Care Provider, Internal Medicine] - Within 2 Weeks Disposition Disposition (needs filled in before D/C Order can be placed): Home, Self Care Charges/Coding Visit Charges Inpatient E&M: 80900 Disch Hosp >30min
--- NOTE | 2025-06-06 10:11 | CASEMGMT ---
JESSICA MORALES NOTE: Discharge order is in. RN CM to room. Pt resting in bed, just finishing up dialysis. Pt denies having any concerns w/discharging home today, stating she is ready. Her will be taking her home. Call placed to [facility], & walker w/[facility]--she was notified pt had HD today @ [facility] & will dc'ing home today. She will return to [facility] for OP HD on Monday. Pt made aware Rx's have been sent to [facility] retail pharmacy. Call placed to the pharmacy, there is no co-pay. They will deliver medications to her room. Andrea BOLTON RN CM
[2025-06-06] MEDS: Folic Acid/Vitamin B Comp W-C 1 Capsule 1 CAP PO (12:10)
[2025-06-06] MEDS: Aspirin E.C. 81 MG Tablet PO (12:11)
[2025-06-06] MEDS: Lactobacillis Acidophilus 1 CAP PO (12:11)
[2025-06-06] MEDS: Smz/Tmp Ds Tablet 0.5 TABLET PO (12:11)
[2025-06-06] MEDS: DiphenhydrAMINE 50 MG/ML Syringe 25 MG IV (12:17)
--- NOTE | 2025-06-06 14:16 | PHA.DC.MR.R ---
Pharmacy [place] Med Reconciliation Pharmacy Service has performed discharge medication reconciliation for this patient. Medication education papers prepared, patient discharged when counseling was attempted. Medications reviewed. The patient's discharge medication list was reviewed for discrepancies and discrepancies were resolved. Medications at Discharge Home Medications aspirin 81 mg tablet,delayed release (Adult Low Dose Aspirin) 81 mg PO DAILY heart health 08/14/18 atorvastatin 40 mg tablet 40 mg PO QHS CHOLESTEROL 08/14/18 vitamin B complex-vitamin C-folic acid 0.8 mg tablet (Bethanie-Petey) 1 tab PO DAILY SUPPLEMENT 01/11/21 levothyroxine 125 mcg tablet 125 mcg PO DAILY THYROID 05/31/23 sucroferric oxyhydroxide 500 mg chewable tablet (Velphoro) 500 mg PO DAILY PHOSPHATE BINDER 05/31/23 amlodipine 10 mg tablet 10 mg PO DAILY blood pressure 01/28/25 clonidine HCl 0.2 mg tablet 0.2 mg PO BID blood pressure 01/28/25 insulin lispro 100 unit/mL subcutaneous pen 8 unit subcut .COMPLEX diabetes 01/28/25 metoprolol tartrate 25 mg tablet 25 mg PO Q12H blood pressure 01/28/25 sumatriptan succinate 50 mg tablet 50 mg PO BID PRN migraine 01/28/25 furosemide 40 mg tablet (Lasix) 40 mg PO DAILY diuretic #90 tabs 01/30/25 ondansetron 4 mg disintegrating tablet 4 mg PO Q8H PRN PRN Nausea #10 tabs 05/17/25 OXYGEN - Supplemental ([facility] INFORMATIONAL USE ONLY) PRN Low SPO2 06/01/25 clonidine HCl 0.1 mg tablet 0.1 mg PO QHS 06/01/25 L.acidophil,salivari-Bifido bifidum-Strep thermoph 175 mg capsule 1 cap PO 2XD 30 days #60 caps 06/06/25 insulin glargine 100 unit/mL (3 mL) subcutaneous pen (Lantus Solostar U-100 Insulin) 10 unit (0.1 mL) subcut DAILY diabetes #3 mL 06/06/25 metronidazole 500 mg tablet 500 mg PO TID 7 days #21 tabs 06/06/25 sulfamethoxazole 800 mg-trimethoprim 160 mg tablet 0.5 tab PO DAILY #14 tabs 06/06/25
== END 2025-06-06 12:56 | disposition home or self-care (01) | DRG 689 ==
LOC: ED 06-01 01:53 → PCU 06-01 03:11
PROVIDERS: Family Medicine; Admitting Provider Internal Medicine; Emergency Provider Emergency Medicine; PCP Internal Medicine; Visit Provider Internal Medicine
DX: N30.00 Acute cystitis without hematuria (principal); N18.6 End stage renal disease; I13.2 Hypertensive heart and chronic kidney disease with heart failure and with stage 5 chronic kidney disease, or end stage renal disease; I50.32 Chronic diastolic (congestive) heart failure; Z16.23 Resistance to quinolones and fluoroquinolones; D63.1 Anemia in chronic kidney disease; E11.22 Type 2 diabetes mellitus with diabetic chronic kidney disease; E03.9 Hypothyroidism, unspecified; E11.649 Type 2 diabetes mellitus with hypoglycemia without coma; B96.20 Unspecified Escherichia coli [E. coli] as the cause of diseases classified elsewhere; F32.A Depression, unspecified; Z99.2 Dependence on renal dialysis; E11.65 Type 2 diabetes mellitus with hyperglycemia; Z79.4 Long term (current) use of insulin; E78.5 Hyperlipidemia, unspecified; K52.9 Noninfective gastroenteritis and colitis, unspecified; F41.9 Anxiety disorder, unspecified; L27.1 Localized skin eruption due to drugs and medicaments taken internally; L29.89 Other pruritus; T36.1X5A Adverse effect of cephalosporins and other beta-lactam antibiotics, initial encounter; Z79.82 Long term (current) use of aspirin; Z79.890 Hormone replacement therapy; Z79.899 Other long term (current) drug therapy; Z87.891 Personal history of nicotine dependence
CPT/HCPCS: 36415; 71275; 74177; 80048; 80053; 81001; 82962; 83605; 83735; 84100; 84439; 84443; 84481; 84484; 85025; 85610; 85730; 87040; 87077; 87086; 87088; 87186; 87506; 90937; 92526; 92610; 93005; 94762; 99285; P9612; Q9967; A4216; G0257; J2405